=== PATIENT | female | born 1965 | race Caucasian/White ===

== ENCOUNTER 2017-06-11 21:10 | Emergency (ER) | payer MEDICARE, SELFPAY ==
[2017-06-11 21:13] VITALS: BP 134/71; PULSE 78; RESP 18; RESP 20; TEMP 37.4; O2SAT 88; O2SAT 95; BMI 43.7
--- NOTE | 2017-06-11 21:43 | EKG12_ITS ---
Test Reason : COUGH Blood Pressure : / mmHG Vent. Rate : 063 BPM Atrial Rate : 063 BPM P-R Int : 146 ms QRS Dur : 094 ms QT Int : 424 ms P-R-T Axes : -10 016 015 degrees QTc Int : 433 ms Normal sinus rhythm Anterior infarct , age undetermined Abnormal ECG Reconfirmed by MARYAM TAFOYA, JAZZMINE ([id number]), news assignment editor SUKUMAR GODINEZ ([id number]) on 06/15/2017 1:48:57 PM Referred By: DR SANTOS Confirmed By:JAZZMINE FRANCISCO MD
--- NOTE | 2017-06-11 21:43 | RAD_ITS ---
STUDY: X-RAY CHEST REASON FOR EXAM: Female, 51 years old. Chronic cough TECHNIQUE: Single AP portable view of the chest. COMPARISON: 01/14/2017. FINDINGS: The lungs are clear and expanded. There is no demonstrated pleural abnormality. Normal size heart. Normal mediastinum and alden. Normal visualized pulmonary arteries. Normal visualized aortic arch and descending thoracic aorta. Normal visualized thoracic spine. Normal visualized ribs, clavicles, and shoulders. There is no demonstrated abnormality of the visualized soft tissue structures of the upper abdomen. RAD/Chest 1 View (Portable) IMPRESSION: No acute cardiopulmonary disease. Electronically Signed: Prashant Rivas DO at 22:28 EDT , Service support ,
[2017-06-11] MEDS: MethylPREDNISolone 125 MG/2 ML Vial IV (21:59)
[2017-06-11] MEDS: Ipratropium/Albuterol Sulfate 3 ML AMPUL.NEB INHALATION (22:05)
[2017-06-11] MEDS: Albuterol 2.5 MG/3 ML VIAL.NEB. INHALATION (22:05)
[2017-06-11 22:07] VITALS: PULSE 67; RESP 18
[2017-06-11 22:09] VITALS: O2SAT 94
[2017-06-11 22:13] LABS: Absolute Lymphocyte Count 2.11 X10^3/ul (0.83-4.51); Absolute Neutrophil Count 6.7 X10^3/uL (2.0-7.7); Basophil# 0.08 X10^3/uL; Basophil% 0.8 % (0-1); Eosinophil# 0.53 X10^3/uL; Eosinophils% 5.1 % (0-5); Hematocrit 40.1 % (37-47); Lymphocyte # 2.11 X10^3/ul (4.0); Lymphocyte % 20.2 % (19-41); Mean Corp Hgb Conc 32.4 g/gl (32-36); Mean Corpuscular Hgb 28.4 pg (27.0-32.0); Mean Corpuscular Volume 87.6 fL (81-99); Mean Platelet Vol. 9.3 fl (6.2-12.0); Monocyte# 1.04 X10^3/uL; Neutrophil # 6.65 X10^3/uL (2.7-7.7); Neutrophil % 63.7 % (47-70); Platelet Count 215 K/mm3 (150-450); RBC Distribution Width CV 15.8 % (11.6-14.6); RBC Distribution Width SD 50.5 fl (35.1-43.9); Red Blood Count 4.58 M/mm3 (4.2-5.4); White Blood Count 10.4 K/mm3 (4.4-11.0)
[2017-06-11 22:16] LABS: POSITIVE COUNT NO; POSITIVE DIFFERENTIAL NO; POSITIVE MORPHOLOGY NO
[2017-06-11 22:36] LABS: Anion Gap 7 (5-15); BUN 6 mg/dL (7-18); BUN/Creat Ratio 7.9 RATIO (10-20); Calcium,Total 9.3 mg/dL (8.5-10.1); Chloride 106 mmol/L (98-107); Creatinine, Serum 0.76 mg/dL (0.55-1.02); EST Glomerular Filtration Rate 86 mL/min (>60); Est Glom Filt Rate - Afr Amer 104 mL/min (>60); Estimated Creatinine Clearance 72.44 ml/min; Glucose 81 mg/dL (74-106); Potassium 3.3 mmol/L (3.5-5.1); Sodium Level 140 mmol/L (136-145)
--- NOTE | 2017-06-11 22:47 | ED.DCSUM_ITS ---
- ER Visit Summary Date of Service: 06/11/17 Chief Complaint: [] Cough, shortness of breath History of Present Illness: The patient is a 51 F [] complaining of nonproductive cough and mild shortness of breath. Patient reports her chest did not feel right and she checked her pulse ox at home and she reported that it was between 80 and 87 on room air. She reports she only wears home O2 at bedtime/sleep. She reports she is normally around 97%. She is conversational in the room on 2 L nasal cannula. Denies chest pain or shortness of breath upon my entry into the room and during history and physical exam. Physical Examination: [] Pulse ox 94% on room air, BP 131/74, heart rate 67, respiratory rate 18, temperature 99.3. Obese 51-year-old female in no acute distress. Cardiovascular exam is regular rate and rhythm. Lungs are clear with diminished breath sounds at the bases. Abdomen is soft and nontender. No lower extremity edema. Test Results: [] CBC, BMP, troponin within normal limits. Chest x-ray is negative per radiologist interpretation. EKG shows normal sinus rhythm, rate of 53 without ectopy. This is unchanged from previous EKG. Emergency Department Course and Treatment: [] Patient provided intravenous Solu-Medrol and albuterol and DuoNeb aerosols. On serial exam she had improvement of symptoms and was amenable to discharge. She was given a short-term prescription for prednisone for the next 5 days with instructions to follow-up with her primary care physician. Treatment Plan: [] Discharge on prednisone with PCP follow-up. Disposition: [] Discharge, stable. Impression: [] COPD exacerbation This note was generated with [employer] dictation software. It may contain incorrect words, spelling, and punctuation that were not noted in review of the chart prior to signing ED Disposition - Plan for ED Patient: Disposition: Home or Assisted Living Chief Complaint: Cough Diagnosis: COPD (chronic obstructive pulmonary disease) with emphysema Instructions: ED Bronchitis Asthmatic Referrals: Gael Gonzalez [Primary Care Provider] -
--- NOTE | 2017-06-11 22:48 | ED.DEP ---
ED Disposition - Plan for ED Patient: Disposition: Home or Assisted Living Chief Complaint: Cough Diagnosis: COPD (chronic obstructive pulmonary disease) with emphysema Instructions: ED Bronchitis Asthmatic Prescriptions: Prednisone [Deltasone] 40 mg PO DAILY #5 tab Referrals: Gael Gonzalez [Primary Care Provider] -
[2017-06-11 23:06] VITALS: BP 139/85; PULSE 71; RESP 20; O2SAT 94
== END 2017-06-11 23:07 | disposition home or self-care (01) ==
PROVIDERS: Emergency Provider Emergency Medicine; Family Provider Family Medicine; PCP Family Medicine
DX: J44.1 Chronic obstructive pulmonary disease with (acute) exacerbation (principal); I25.10 Atherosclerotic heart disease of native coronary artery without angina pectoris; E66.9 Obesity, unspecified; Z72.0 Tobacco use; Z79.02 Long term (current) use of antithrombotics/antiplatelets; Z79.899 Other long term (current) drug therapy
CPT/HCPCS: 71045; 80048; 84484; 85025; 93005; 94640; 96374; 99284; A4216

== ENCOUNTER 2017-06-27 16:02 | Emergency (ER) | payer MEDICARE, SELFPAY ==
[2017-06-27 16:03] VITALS: BP 134/76; PULSE 73; RESP 18; TEMP 37.1; O2SAT 98; BMI 41.3
[2017-06-27] MEDS: Triamcinolone Acetonide 40 MG/ML Vial 80 MG IM (16:47)
[2017-06-27] MEDS: Ondansetron ODT 4 MG Tablet PO (16:47)
[2017-06-27] MEDS: oxyCODONE 5 MG Tablet 10 MG PO (16:51)
--- NOTE | 2017-06-27 16:58 | RAD_ITS ---
STUDY: X-RAY CHEST REASON FOR EXAM: Female, 51 years old. Cough, chest pain TECHNIQUE: Frontal and lateral views of the chest were obtained. COMPARISON: June 11, 2017 FINDINGS: The lungs are hyperinflated. There are no focal airspace opacities. There is no demonstrated pleural abnormality. The cardiac silhouette is normal in size. The mediastinum and hilar regions are unremarkable. Normal visualized pulmonary arteries. There is atherosclerotic calcification of the thoracic aorta. There are diffuse degenerative changes of the visualized spine. There are degenerative changes in both shoulders. There is no demonstrated abnormality of the visualized upper abdomen. RAD/Chest PA and Lateral IMPRESSION: There is no evidence of focal consolidation or pleural effusion. Hyperinflation suggests COPD. Electronically Signed: Breann Horton MD at 17:42 EDT Tel Direct: [phone], Service support ,
--- NOTE | 2017-06-27 17:14 | ED.VISSUMM ---
- ER Visit Summary Date of Service: 06/27/17 Chief Complaint: Chronic pain and cough History of Present Illness: The patient is a [address] has seen Dr[address] Rodriguez in the past. She reports that she has chronic back, left shoulder, and right hip pain. She was seeing Dr. Mary Ann Riley for this, but reports that she did not have transportation to get there for a pill count and is been fired from their practice. She is an appointment to see Dr. Rodriguez again on July 10 or July 13. She denies any recent trauma. No fall, MVA, or change in activity. She reports that her left shoulder pain is 8 out of 10 severity. Her right hip pain is 8 out of 10 severity. And her back pain is 7 out of 10 in severity. She denies any numbness or weakness that is new. No problems with her bowels or her bladder. No groin numbness. No fever or chills. Review of systems the patient complains of a cough that is chronic, but is worsened over the past 2 days. She reports that she has mild shortness of breath. Her cough is productive brown sputum without blood. Physical Examination: Vitals: Stable. Afebrile. General: A&O x 3. NAD. Cardiovascular exam: Regular rate and rhythm, no murmur, rub or gallop. Respiratory exam: Clear to auscultation bilaterally. No wheezes or stridor. Abdominal exam: Soft, nontender, nondistended, normal bowel sounds. No peritoneal signs. Back: Diffuse moderate tenderness to palpation over the lumbar spine and the paraspinous musculature in the lumbar region. No point tenderness. Negative straight leg bilaterally. 5/5 DF, PF, EHL bilaterally. Normal sensation to light touch throughout. Extremity: No clubbing, cyanosis, or edema. Test Results: Chest x-ray shows no acute disease. Emergency Department Course and Treatment: An [facility] report was obtained which shows patient's last prescriptions for opiates was April 05 and was supposed to have lasted 1 month. Patient was discussed with Dr. Rodriguez who states that he will see her in 6 days and asked that she be given a prescription for oxycodone until that time. Patient was given Kenalog IM and Zofran p.o. Treatment Plan: Patient will be discharged prescription for Percocet, Zofran, and doxycycline. Instructed to follow-up with Dr. Rodriguez in 6 days for another exam. Instructed to follow-up with her primary care physician in 1 week if her cough is not improving. Return to the emergency department for any worsening symptoms. Disposition: To home in improved and stable condition. Impression: 1. Chronic back/left shoulder/right hip pain. 2. COPD exacerbation. This note was generated with [employer] dictation software. It may contain incorrect words, spelling, and punctuation that were not noted in review of the chart prior to signing ED Disposition - Plan for ED Patient: Disposition: Home or Assisted Living Chief Complaint: Back Instructions: ED Chronic Pain Management, ED COPD Flare Prescriptions: Oxycodone HCl/Acetaminophen [Percocet 5/325] 1 tablet PO Q6H PRN PRN #28 tablet PRN Reason: Pain Ondansetron [Zofran Odt] 4 mg PO Q8H PRN PRN #10 tablet PRN Reason: Nausea Doxycycline Monohydrate 100 mg PO BID #20 capsule Referrals: Robyn Rodriguez MD [STAFF PHYSICIAN] - 07/03/17 Janel Taylor MD [Primary Care Provider] - 1 Week if not improving
[2017-06-27 18:33] VITALS: BP 155/88; PULSE 87; RESP 20; TEMP 36.2; O2SAT 96
== END 2017-06-27 18:34 | disposition home or self-care (01) ==
LOC: ED 16:51
PROVIDERS: Emergency Provider Emergency Medicine; Family Provider Family Medicine; PCP Family Medicine
DX: M54.9 Dorsalgia, unspecified (principal); M25.512 Pain in left shoulder; M25.551 Pain in right hip; G89.29 Other chronic pain; J44.1 Chronic obstructive pulmonary disease with (acute) exacerbation; R51 Headache; R11.0 Nausea; I25.10 Atherosclerotic heart disease of native coronary artery without angina pectoris; I10 Essential (primary) hypertension; Z72.0 Tobacco use; Z79.02 Long term (current) use of antithrombotics/antiplatelets; Z79.899 Other long term (current) drug therapy; Z98.84 Bariatric surgery status
CPT/HCPCS: 71046; 96372; 99283

== ENCOUNTER 2017-07-01 15:00 | Emergency (ER) | payer MEDICARE, SELFPAY ==
[2017-07-01 15:02] VITALS: BP 167/103; PULSE 113; RESP 20; TEMP 36.6; O2SAT 95; BMI 41.4
--- NOTE | 2017-07-01 15:23 | ED.DEP ---
ED Disposition - Plan for ED Patient: Chief Complaint: Back Instructions: ED Sprain Strain Lumbar Referrals: Janel Taylor MD [Primary Care Provider] - Robyn Rodriguez MD [STAFF PHYSICIAN] -
--- NOTE | 2017-07-01 15:29 | ED.DCSUM_ITS ---
- ER Visit Summary Date of Service: 07/01/17 Chief Complaint: Back pain History of Present Illness: The patient is a 51 F presenting with back pain. Patient states she has a history of chronic back pain and has had similar pain for the past 2-5 years. She has an appointment with Dr. Rodriguez on Monday to restart pain management. She was previously seeing Dr. Riley for pain management. She had difficulty with transportation and was unable to get to their office for a pill count and was fired from their practice. She then set up an appointment with Dr. Rodriguez and has an appointment on Monday. She was seen in the ED 4 days ago and was given a prescription for Percocet. She states she still has Percocet at home but this is not helping her pain. Denies injury or other complaints. Physical Examination: Vitals are stable. Patient is afebrile. Alert no acute distress. HEENT exam is unremarkable. Neck is supple. Lungs are clear and equal bilaterally. Heart is regular rate and rhythm. Abdomen is soft nontender nondistended. Back: right paraspinal lumbar tenderness, no midline tenderness Extremities are unremarkable. Skin is warm and dry. No focal neurologic deficit. Remainder of exam is unremarkable. Emergency Department Course and Treatment: Patient is given Dilaudid, Zofran. She is advised to follow with Dr. Rodriguez as scheduled. Advised return to ED if worsening complaints. Disposition: Discharge home Impression: Acute on chronic back pain This note was generated with [employer] dictation software. It may contain incorrect words, spelling, and punctuation that were not noted in review of the chart prior to signing ED Disposition - Plan for ED Patient: Chief Complaint: Back Instructions: ED Sprain Strain Lumbar Referrals: Robyn Rodriguez MD [STAFF PHYSICIAN] - Janel Taylor MD [Primary Care Provider] -
[2017-07-01] MEDS: Ondansetron ODT 4 MG Tablet PO (15:32)
[2017-07-01] MEDS: HYDROmorphone 1 MG/ML Syringe 2 MG IM (15:32)
[2017-07-01 15:59] VITALS: BP 156/90; PULSE 87; RESP 18
== END 2017-07-01 16:00 | disposition home or self-care (01) ==
LOC: ED 15:27
PROVIDERS: Emergency Provider Emergency Medicine; Family Provider Family Medicine; PCP Family Medicine
DX: M54.9 Dorsalgia, unspecified (principal); G89.29 Other chronic pain; J44.9 Chronic obstructive pulmonary disease, unspecified; Z72.0 Tobacco use; Z79.02 Long term (current) use of antithrombotics/antiplatelets; Z79.899 Other long term (current) drug therapy
CPT/HCPCS: 96372; 99281

== ENCOUNTER 2017-07-02 11:48 | Emergency (ER) | payer MEDICARE, SELFPAY ==
[2017-07-02 11:49] VITALS: BP 162/102; PULSE 100; RESP 16; TEMP 36.6; O2SAT 98; BMI 41.4
--- NOTE | 2017-07-02 12:42 | ED.DCSUM_ITS ---
- ER Visit Summary Date of Service: 07/02/17 Chief Complaint: [] Acute recurrent chronic right hip and back pain History of Present Illness: The patient is a 51 F [] long history of right hip and back pain she indicates she has degenerative joint disease in the right hip she had right hip replacement years ago by [facility] she has had persistence of the right hip pain and back pain, she was also told she has lumbar disc disease, she was under the pain of her pain management physician her primary care physician apparently she could not follow the instructions related to pain management that involved her pill counts of the pain management service discontinued her care referred her back to her primary care doctor or other pain management physicians, she indicates she has not seen her primary care doctors for many months and she is scheduled to see a new pain management doctor tomorrow The case the pain she is having is the same it is not new or different she denies any other complaints of head neck chest or abdominal pain she is a walker to walk. She has been to the emergency departments a few times this week earlier in the week she indicates she received Percocet and then yesterday she indicates she was in the emergency department and received an injection of Dilaudid Returns today asking to be re-medicated with IM Dilaudid Again she indicates his pain is not different or new she has the Percocet prescription she was given earlier in the week, she still has some of those pills left Physical Examination: [] She is in no distress head neck chest unremarkable the abdomen is obese but soft nontender she has a vague pain to the right paracervical musculature she is able to stand she can toe raise and heel raise and bend her knees she is able to walk using her rolling walker she assures me this is baseline for her and there are no new abnormalities or changes Test Results: [] Emergency Department Course and Treatment: [] I had a long conversation with the patient I explained her that her pain management cannot be assumed from the emergency department due to state and federal regulations, she has been to the emergency department now 3 times this week either getting narcotics or requesting narcotics, she currently has Percocet left over from earlier this week prescription. I discuss nonnarcotic management with her she indicates me she was not allergic to nonsteroidals but I when I went to write her for IM Toradol, the computer alert indicated she was allergic to ibuprofen I confirm that with her and she states she cannot take nonsteroidals related to stomach ulcers Explained her that given that history that there is really no other therapy that was available for me to provide her, this was a long-standing condition that she had and she needs to obtain management from her primary care doctor or pain management management physician. She indicated that every time she comes to the emergency department she is treated with narcotics or given narcotic prescriptions to go home with, I explained her that I was not present during those visits and I cannot comment on why that did or did not occur, but in any case again She has pain management physicians, she has family physicians, she has primary care physicians, orthopedic physicians, none of these physicians are prescribing her narcotics, and if she needs pain management or narcotics or other therapies she needs to obtain that from those physicians and not the emergency department SHe was quite unhappy with my explanation to her, I further explained to her I would be happy to treat her with nonnarcotics there were none available given her allergy profile at this time she will be discharged home to follow-up with her pain management physicians family physicians primary care physicians and orthopedic physicians and all of the other physicians were managing her condition Treatment Plan: [] Disposition: [] Home stable Impression: [] Acute recurrent right back and hip pain for years, requesting an injection of Dilaudid This note was generated with [employer] dictation software. It may contain incorrect words, spelling, and punctuation that were not noted in review of the chart prior to signing ED Disposition - Plan for ED Patient: Chief Complaint: Back Referrals: Janel Taylor MD [Primary Care Provider] -
--- NOTE | 2017-07-02 12:42 | ED.DEP ---
ED Disposition - Plan for ED Patient: Chief Complaint: Back Instructions: ED Spasm Back No Trauma, Common Myths About Pain Medications Referrals: Janel Taylor MD [Primary Care Provider] -
== END 2017-07-02 13:25 | disposition home or self-care (01) ==
LOC: ED 13:21
PROVIDERS: Emergency Provider Emergency Medicine; Family Provider Family Medicine; PCP Family Medicine
DX: M25.551 Pain in right hip (principal); G89.29 Other chronic pain; M16.11 Unilateral primary osteoarthritis, right hip; M46.46 Discitis, unspecified, lumbar region; I25.10 Atherosclerotic heart disease of native coronary artery without angina pectoris; Z79.02 Long term (current) use of antithrombotics/antiplatelets; Z79.899 Other long term (current) drug therapy; Z88.6 Allergy status to analgesic agent; Z96.641 Presence of right artificial hip joint
CPT/HCPCS: 99282; J7040

== ENCOUNTER 2017-07-02 16:56 | Emergency (ER) | payer MEDICARE, SELFPAY ==
[2017-07-02 16:56] VITALS: BP 130/89; PULSE 92; RESP 16; TEMP 36.9; O2SAT 97; BMI 41.4
[2017-07-02] MEDS: oxyCODONE 5 MG Tablet PO (17:29)
[2017-07-02] MEDS: proMETHazine 25 MG/ML Syringe 6.25 MG IV (17:29)
[2017-07-02] MEDS: Ketorolac 30 MG/ML Syringe IV (17:29)
--- NOTE | 2017-07-02 18:32 | ED.VISSUMM ---
- ER Visit Summary Date of Service: 07/02/17 Chief Complaint: Exacerbation of low back pain with radiation down the lateral right lower extremity to the ankle and wraps around the ankle. History of Present Illness: The patient is a 51 F has history of herniated disc, spinal stenosis, degenerative disc disease who presents with low back pain. She was not forthcoming with information that she was here yesterday. Furthermore she is upset that she was only prescribed Percocet 5/325. She was told she was given Percocet 5 and not 10 because her pain management physician requested only 5. She states she has an appointment to see Dr. Russ tomorrow. She apparently was in Dr. Riley's practice but has been removed because of noncompliance with pill counts. Patient denies bowel bladder dysfunction. Patient denies saddle paresthesia or anesthesia. She states she has a foot drop. She denies quadricep weakness going up or down steps. She denies fever, chills night sweats. Physical Examination: Vital signs remarkable slight elevation blood pressure 130/89 BMI is 42. Any type of movement causes pain. Gait was observed and she does not have a foot drop. Straight leg test is negative bilaterally. DTRs are 1+ at the ankle patella. EHL is intact. There is no clonus or Babinski sign. Normal sensation and normal perianal sensation. Patient has pain out of proportion to tactile stimuli. Bowel sounds are present normal. Test Results: None Emergency Department Course and Treatment: Patient was treated with oxycodone 5 mg p.o. and 30 mg of Toradol IV push. She denies history of renal disease or diabetes even though past sister Lists type 2 diabetes. Treatment Plan: As told she would not receive any other medicine. She states the medicine she was given yesterday helped. After reviewing records it was determined she gave Dilaudid. As aforementioned she was not forthcoming with information that she was here yesterday nor is she forthcoming with history that she was removed from Dr. Riley's practice and reason she is now seeing Dr. Rodriguez Disposition: Discharged to follow-up with pain management Impression: 1. Exacerbation of low back pain right side 2. History of degenerative disc disease 3. History of spinal stenosis 4. History of herniated disc This note was generated with [employer] software. It may contain incorrect words, spelling, and punctuation that were not noted in review of the chart prior to signing ED Disposition - Plan for ED Patient: Disposition: Home or Assisted Living Chief Complaint: Back Instructions: ED Neck Back Pain General Referrals: Janel Taylor MD [Primary Care Provider] - As Needed Robyn Rodriguez MD [STAFF PHYSICIAN] - Keep Maurice appointment
--- NOTE | 2017-07-02 18:37 | ED.DCSUM_ITS ---
- ER Visit Summary Date of Service: 07/02/17 Chief Complaint: Exacerbation of low back pain with radiation down the lateral right lower extremity to the ankle and wraps around the ankle. History of Present Illness: The patient is a 51 F has history of herniated disc , spinal stenosis, degenerative disc disease who presents with low back pain. She was not forthcoming with information that she was here yesterday. Furthermore she is upset that she was only prescribed Percocet 5/325. She was told she was given Percocet 5 and not 10 because her pain management physician requested only 5. She states she has an appointment to see Dr. Russ tomorrow. She apparently was in Dr. Riley's practice but has been removed because of noncompliance with pill counts. Patient denies bowel bladder dysfunction. Patient denies saddle paresthesia or anesthesia. She states she has a foot drop. She denies quadricep weakness going up or down steps. She denies fever, chills night sweats. Physical Examination: Vital signs remarkable slight elevation blood pressure 130 /89 BMI is 42. Any type of movement causes pain. Gait was observed and she does not have a foot drop. Straight leg test is negative bilaterally. DTRs are 1+ at the ankle patella. EHL is intact. There is no clonus or Babinski sign. Normal sensation and normal perianal sensation. Patient has pain out of proportion to tactile stimuli. Bowel sounds are present normal. Test Results: None Emergency Department Course and Treatment: Patient was treated with oxycodone 5 mg p.o. and 30 mg of Toradol IV push. She denies history of renal disease or diabetes even though past sister Lists type 2 diabetes. Treatment Plan: As told she would not receive any other medicine. She states the medicine she was given yesterday helped. After reviewing records it was determined she gave Dilaudid. As aforementioned she was not forthcoming with information that she was here yesterday nor is she forthcoming with history that she was removed from Dr. Riley's practice and reason she is now seeing Dr. Rodriguez Disposition: Discharged to follow-up with pain management Impression: 1. Exacerbation of low back pain right side 2. History of degenerative disc disease 3. History of spinal stenosis 4. History of herniated disc This note was generated with [employer] software. It may contain incorrect words, spelling, and punctuation that were not noted in review of the chart prior to signing ED Disposition - Plan for ED Patient: Disposition: Home or Assisted Living Chief Complaint: Back Instructions: ED Neck Back Pain General Referrals: Janel Taylor MD [Primary Care Provider] - As Needed Robyn Rodriguez MD [STAFF PHYSICIAN] - Keep Maurice appointment
[2017-07-02 18:57] VITALS: BP 128/82; PULSE 80; RESP 16; O2SAT 98
== END 2017-07-02 18:59 | disposition home or self-care (01) ==
PROVIDERS: Emergency Provider Emergency Medicine; Family Provider Family Medicine; PCP Family Medicine
DX: M16.11 Unilateral primary osteoarthritis, right hip (principal); M51.27 Other intervertebral disc displacement, lumbosacral region; G89.29 Other chronic pain; I25.10 Atherosclerotic heart disease of native coronary artery without angina pectoris; I10 Essential (primary) hypertension; K21.9 Gastro-esophageal reflux disease without esophagitis; J44.9 Chronic obstructive pulmonary disease, unspecified; G47.33 Obstructive sleep apnea (adult) (pediatric); E66.9 Obesity, unspecified; Z68.41 Body mass index [BMI] 40.0-44.9, adult; Z72.0 Tobacco use; Z88.6 Allergy status to analgesic agent; Z91.19 Patient's noncompliance with other medical treatment and regimen; Z79.02 Long term (current) use of antithrombotics/antiplatelets; Z79.899 Other long term (current) drug therapy; Z96.641 Presence of right artificial hip joint
CPT/HCPCS: 99282; 99283; J7040; J7050; A4216

== ENCOUNTER → 2017-07-03 16:32 | Outpatient (CLI) | payer MEDICARE, SELFPAY | PROVIDERS: Family Provider Family Medicine; PCP Family Medicine; Visit Provider Anesthesiology Pain Medicine | DX: F11.20 Opioid dependence, uncomplicated (principal) | CPT/HCPCS: 80307 ==

== ENCOUNTER → 2017-08-01 13:18 | Outpatient (CLI) | payer MEDICARE, SELFPAY ==
[2017-08-05 03:07] LABS: Alternaria alternata <0.10 kU/L (Class 0); Bermuda Grass <0.10 kU/L (Class 0); Bluegrass, Kentucky <0.10 kU/L (Class 0); Cat Hair/Dander, Standard <0.10 kU/L (Class 0); D farinae Mite <0.10 kU/L (Class 0); D pteronyssinus <0.10 kU/L (Class 0); Dog Epithelia <0.10 kU/L (Class 0); Elm, American White <0.10 kU/L (Class 0); Oak, White <0.10 kU/L (Class 0); Plantain, English <0.10 kU/L (Class 0); Ragweed, Short/Common <0.10 kU/L (Class 0)
[2017-08-05 12:07] LABS: Aspirgillus flavus Negative (Neg:<1:1); Aspirgillus fumigatus Negative (Neg:<1:1); Aspirgillus niger Negative (Neg:<1:1)
[2017-08-05 14:13] LABS: Mouse Urine <0.10 kU/L (Class 0)
[2017-08-06 09:10] LABS: Immunoglobulin E 30 IU/mL (0-100)
== END ==
PROVIDERS: Family Provider Internal Medicine; PCP Internal Medicine; Visit Provider Nurse Practitioner Acute Care
DX: R09.82 Postnasal drip (principal)
CPT/HCPCS: 36415; 82785; 86003; 86606

== ENCOUNTER → 2017-09-12 10:59 | Outpatient (CLI) | payer MEDICARE, SELFPAY ==
[2017-09-12 14:08] VITALS: PULSE 63; PULSE 71; PULSE 77; PULSE 80; PULSE 81; PULSE 82; PULSE 83; O2SAT 88; O2SAT 90; O2SAT 91; O2SAT 92; O2SAT 94
--- NOTE | 2017-09-12 14:20 | CPS ---
Pt spO2 dropped to 88%. Pt face to face with Dr. Arthur. [facility] called and pt sent home on 2LNC portable O2 tank.
--- NOTE | 2017-09-12 15:31 | WT_ITS ---
PSN 6 Minute Walk Test - 6 Minute Walk Test 6 Minute Walk Test: 6 Minute Walk Test PSN:6-Minute Walk Test Start: 09/12/17 14: 07 Freq: Status: Active Protocol: RESP.6MINW Document 09/12/17 14:08 SHANNA (Rec: 09/12/17 14:22 [facility] [id number]) 6 Minute Walk Test Date Performed 09/12/17 Time Performed 11:07 Height 5 ft 3 in Weight: 105.233 kg Weight in Pounds 232.[address]: Rosanna Hampton Assistive device used: Walker Pre-test Oxygen Delivery Method Room Air Pulse Ox (%) 91 Pulse Rate (60-100 beats/min) 71 Dyspnea Nishi Scale (0-10) 3 Exertion Nishi Scale (6-20) 12 Number of Rests Taken 1 1st minute Oxygen Delivery Method Room Air Pulse Ox (%) 90 Pulse Rate (60-100 beats/min) 82 Number of Rests Taken 1 Reported Symptoms Increased Work of Breathing 2nd minute Oxygen Delivery Method Room Air Pulse Ox (%) 92 Pulse Rate (60-100 beats/min) 81 Number of Rests Taken 1 Reported Symptoms Increased Work of Breathing 3rd minute Oxygen Delivery Method Room Air Pulse Ox (%) 90 Pulse Rate (60-100 beats/min) 77 Number of Rests Taken 1 Reported Symptoms Increased Work of Breathing 4th minute Oxygen Delivery Method Room Air Pulse Ox (%) 90 Pulse Rate (60-100 beats/min) 80 Reported Symptoms Increased Work of Breathing 5th minute Oxygen Delivery Method Room Air Pulse Ox (%) 88 Pulse Rate (60-100 beats/min) 80 Number of Rests Taken 1 Reported Symptoms Increased Work of Breathing 6th minute Oxygen Flow Rate (L/min) (L/min) 2 Oxygen Delivery Method Nasal Cannula Pulse Ox (%) 92 Pulse Rate (60-100 beats/min) 83 Number of Rests Taken 1 Reported Symptoms Increased Work of Breathing Post-test Oxygen Flow Rate (L/min) (L/min) 2 Oxygen Delivery Method Nasal Cannula Pulse Ox (%) 94 Pulse Rate (60-100 beats/min) 63 Dyspnea Nishi Scale (0-10) 5 Exertion Nishi Scale (6-20) 15 Reported Symptoms Increased Work of Breathing Full Laps Walked 4 Partial Lap, Number of Tiles Walked 0 Total Distance Walked (ft) 236 09/12/17 14:20 Cardiopulmonary Services by Bianca Bobo Pt spO2 dropped to 88%. Pt face to face with Dr. Willoughby. [place] called and pt sent home on 2LNC portable O2 tank. Initialized on 09/12/17 14:20 - END OF NOTE - Interpretation Interpretation: The patient was able to ambulate only 236 feet over the course of 6 minutes with the assistance of a walker. Patient was noted to be 91% on room air, but desaturated to 88% in the fifth minute. No significant tachycardia was noted. These findings are consistent with a respiratory limitation exercise tolerance. - Recommendations Recommendations: The patient requires no supplemental oxygen at rest, but should be using 2 L/ min with any exertion.
== END ==
LOC: PSN 11:00
PROVIDERS: Family Provider Internal Medicine; PCP Internal Medicine; Visit Provider Nurse Practitioner Acute Care
DX: J43.9 Emphysema, unspecified (principal)
CPT/HCPCS: 94618

== ENCOUNTER → 2017-09-21 09:57 | Outpatient (CLI) | payer MEDICARE, SELFPAY ==
--- NOTE | 2017-09-22 07:42 | PFT ---
INTRODUCTION: The patient is a 52-year-old female that presents for pulmonary function testing secondary to a diagnosis of emphysema. INTERPRETATION: Forced expiration spirometry demonstrates no evidence of a large airways obstructive ventilatory defect, with a postbronchodilator FEV1/FVC ratio of 70%. Technically, the patient does not meet requirements for obstruction based on ATS criteria either. Spirograms are of good quality and plateau gradually. Body plethysmography was performed and reveals an elevated RV to 159% of predicted. Diffusing capacity by single breath CO was severely reduced at 39% of predicted. IMPRESSION: Technically, the patient does not demonstrate evidence of large airways obstruction, based upon ATS and GOLD criteria (FEV1/FVC of 70%). The patient's RV is increased. Diffusing capacity is significantly reduced, but appears stable when compared to pulmonary function testing from January 2017.
--- NOTE | 2017-09-22 07:47 | PFT_ITS ---
INTRODUCTION: The patient is a 52-year-old female that presents for pulmonary function testing secondary to a diagnosis of emphysema. INTERPRETATION: Forced expiration spirometry demonstrates no evidence of a large airways obstructive ventilatory defect, with a postbronchodilator FEV1/FVC ratio of 70% . Technically, the patient does not meet requirements for obstruction based on ATS criteria either. Spirograms are of good quality and plateau gradually. Body plethysmography was performed and reveals an elevated RV to 159% of predicted. Diffusing capacity by single breath CO was severely reduced at 39% of predicted. IMPRESSION: Technically, the patient does not demonstrate evidence of large airways obstruction, based upon ATS and GOLD criteria (FEV1/FVC of 70%). The patient's RV is increased. Diffusing capacity is significantly reduced, but appears stable when compared to pulmonary function testing from January 2017.
== END ==
PROVIDERS: Family Provider Family Medicine; PCP Family Medicine; Visit Provider Nurse Practitioner Acute Care
DX: J43.9 Emphysema, unspecified (principal)
CPT/HCPCS: 94060; 94726; 94729

== ENCOUNTER → 2017-09-26 14:07 | Outpatient (CLI) | payer MEDICARE, SELFPAY ==
--- NOTE | 2017-09-26 14:11 | RAD_ITS ---
STUDY: X-RAY - PELVIS AND LEFT HIP REASON FOR EXAM: Female, 52 years old. Chronic left hip pain TECHNIQUE: Radiological exam, hip, unilateral, with pelvis when performed; 2 or 3 views. COMPARISON: 12/28/2015 FINDINGS: Stable right hip arthroplasty with normal alignment. Mild left hip osteoarthritis. Degenerative lumbar changes. Pelvic phleboliths. No fractures or osteolytic lesions are seen. RAD/Hip 2-3 Views with Pelvis IMPRESSION: Stable right hip arthroplasty with normal alignment. Mild left hip osteoarthritis. Electronically Signed: Mata Forbes MD at 2:48 EDT Tel , Service support ,
== END ==
PROVIDERS: Visit Provider Nurse Practitioner Family
DX: M25.552 Pain in left hip (principal)
CPT/HCPCS: 73502

== ENCOUNTER 2017-10-27 11:47 | Emergency (ER) | payer MEDICARE, SELFPAY ==
[2017-10-27 11:47] VITALS: BP 156/85; PULSE 91; RESP 20; TEMP 36.6; O2SAT 98; BMI 41.1
--- NOTE | 2017-10-27 12:08 | ED.VISSUMM ---
- ER Visit Summary Date of Service: 10/27/17 Chief Complaint: Right hip and lower back pain. History of Present Illness: The patient is a 52 F significant past medical history for prior MIs, coronary disease with multiple cardiac stents. COPD, type II awa-srearae-isovgevir diabetes, chronic back pain and a replaced right hip. Patient states last weekend she moved with a lot of carrying and moving her things and since that time has had increased low back and right hip pain. She gets flares like this from time to time. She denies any falls or trauma. No bowel or bladder incontinence. No fever. She has had episodes like this multiple times before. Physical Examination: Well-appearing middle-age female. Vital signs are stable afebrile. She does not look septic toxic. She is in no acute distress. H EENT exam unremarkable nontender. Neck nontender. Lungs has coarse breath sounds with intermittent few scattered wheezes and rhonchi. Heart regular rhythm no murmur. Abdomen soft nontender. She is moving all 4 extremities. They are neurovascularly intact. There is no gross deformity. She has pain on palpation to her right hip. Has decreased range of motion right hip due to pain. There is no deformity. There is no shortening or rotation. She is able to ambulate. Back there is no specific tenderness at this time. Neurologically she is awake alert with no focal motor or sensory deficits in her lower extremities. No cauda equina or saddle anesthesia. Test Results: None Emergency Department Course and Treatment: P.o. Percocet here. Patient does have a history of significant degenerative disc disease. Also replaced right hip. I think she has legitimate pain. Also she is on Plavix and I do not think is a good candidate with her significant past medical history for NSAIDs. For that reason I will give her a limited prescription for Percocet. Treatment Plan: Percocet for pain. Follow-up with primary care physician. Physical therapy may be a good option also. Disposition: Discharged Impression: Acute on chronic right hip and back pain History of degenerative disc disease and right hip replacement History of CAD, cardiac stents, diabetes, COPD and anticoagulated on Plavix This note was generated with [employer] software. It may contain incorrect words, spelling, and punctuation that were not noted in review of the chart prior to signing ED Disposition - Plan for ED Patient: Chief Complaint: Back Referrals: Janel Taylor MD [Primary Care Provider] -
--- NOTE | 2017-10-27 12:12 | ED.DEP ---
ED Disposition - Plan for ED Patient: Disposition: Home or Assisted Living Chief Complaint: Back Instructions: ED Neck Back Pain General Prescriptions: Oxycodone HCl/Acetaminophen [Percocet 7.5-325 mg Tablet] 1 - 2 tab PO Q6H PRN PRN #20 tab PRN Reason: Pain Referrals: Janel Taylor MD [Primary Care Provider] - 1 Week if not improving Additional Instructions: Limited Percocet for pain. Ice to your hip. Call follow-up your primary care physician.
[2017-10-27] MEDS: oxyCODONE 5 MG Tablet 10 MG PO (12:15)
[2017-10-27 12:35] VITALS: PULSE 92; RESP 15; O2SAT 97
== END 2017-10-27 12:36 | disposition home or self-care (01) ==
PROVIDERS: Emergency Provider Emergency Medicine; PCP Family Medicine
DX: M25.551 Pain in right hip (principal); M54.9 Dorsalgia, unspecified; G89.29 Other chronic pain; I25.10 Atherosclerotic heart disease of native coronary artery without angina pectoris; J44.9 Chronic obstructive pulmonary disease, unspecified; E11.9 Type 2 diabetes mellitus without complications; I25.2 Old myocardial infarction; Z72.0 Tobacco use; Z79.02 Long term (current) use of antithrombotics/antiplatelets; Z79.899 Other long term (current) drug therapy; Z95.5 Presence of coronary angioplasty implant and graft; Z96.641 Presence of right artificial hip joint
CPT/HCPCS: 99282

== ENCOUNTER 2017-10-30 11:14 | Emergency (ER) | payer MEDICARE, SELFPAY ==
[2017-10-30 11:15] VITALS: BP 136/77; PULSE 86; RESP 18; TEMP 36.3; O2SAT 97; BMI 41.6
--- NOTE | 2017-10-30 11:42 | ED.VISSUMM ---
- ER Visit Summary Date of Service: 10/30/17 Chief Complaint: Severe right-sided back and leg pain History of Present Illness: The patient is a 52 F who was seen on October 27, 2017 for back pain and right buttocks leg pain after moving. No history of direct trauma. She denies bowel bladder dysfunction. Denies saddle paresthesia anesthesia. She denies foot drop. She does walk with a walker with wheels. She is unaware of any weakness in her thigh muscles. She is uncertain whether she would prefer to sit or stand for 30 minutes. She denies history of bleeding ulcer or renal disease. She states she has borderline diabetes. Last BUN and creatinine on June 11, 2017 was 6 and 0.76. She denies fever, chills night sweats. She denies nausea, vomiting, diarrhea or constipation. She denies dysuria, frequency, urgency or hematuria. She received a prescription for 20 Percocet on Monday. She reports she took 2 every 6 hours. She states she took all of them. He was informed that should last her 5 days at the most 3 to days at a minimum. Physical Examination: Vital signs are noted. BMI is 41.6. Abdomen is soft nontender. No palpable pulsatile mass or abdominal bruit. DP and PT pulses are palpable. Straight leg test is negative. DTRs patella and ankle 1+. EHL is intact. She has normal sensation. She has pain out of proportion to tactile stimuli. Movement causes her pain. Test Results: None are indicated Emergency Department Course and Treatment: Patient was informed that she completed her medication beforehand and I would not be able to give her any more opiate analgesia. Since she has normal renal function and this is musculoskeletal recommended ibuprofen or Aleve for her discomfort. Treatment Plan: Rest, ice anti-inflammatory Disposition: Discharged home. Of note she drove herself to the emergency department Impression: Exacerbation of right low back pain secondary to lumbar strain History of hypertension History hypercholesterolemia History of coronary disease History of type 2 diabetes This note was generated with [employer] dictation software. It may contain incorrect words, spelling, and punctuation that were not noted in review of the chart prior to signing ED Disposition - Plan for ED Patient: Disposition: Home or Assisted Living Chief Complaint: Lower Extremity Injury Instructions: ED Sprain Strain Lumbar Referrals: Janel Taylor MD [Primary Care Provider] - Keep Maurice appointment Additional Instructions: Take either 6 ibuprofen tablets every 6-8 hours or 2 Aleve tablets every 12 hours until you are seen by your primary care physician. Based on the number and frequency of medication prescribed by Dr. Feng on Monday you should still have pain medicine. Therefore, I will not Ly my able to write for any more medication since you took more pills then you were prescribed.
--- NOTE | 2017-10-30 12:42 | ED.RN ---
PT LEFT PRIOR TO RECEIVING DISCHARGE INSTRUCTIONS, PT UPSET THAT SHE DID NOT RECEIVE REQUESTED NARCOTIC MEDICATIONS. ORDERED MEDICATION WAS UNABLE TO BE ADMINISTERED BEFORE PT LEFT ED.
== END 2017-10-30 11:45 | disposition home or self-care (01) ==
LOC: ED 12:01
PROVIDERS: Emergency Provider Emergency Medicine; Family Provider Family Medicine; PCP Family Medicine
DX: S39.012A Strain of muscle, fascia and tendon of lower back, initial encounter (principal); M54.5 Low back pain; X58.XXXA Exposure to other specified factors, initial encounter; Y93.9 Activity, unspecified; Y92.9 Unspecified place or not applicable; I10 Essential (primary) hypertension; E78.00 Pure hypercholesterolemia, unspecified; I25.10 Atherosclerotic heart disease of native coronary artery without angina pectoris; E11.9 Type 2 diabetes mellitus without complications; E66.9 Obesity, unspecified; Z68.41 Body mass index [BMI] 40.0-44.9, adult; J44.9 Chronic obstructive pulmonary disease, unspecified; G47.33 Obstructive sleep apnea (adult) (pediatric); F32.9 Major depressive disorder, single episode, unspecified; Z87.11 Personal history of peptic ulcer disease; Z79.02 Long term (current) use of antithrombotics/antiplatelets; Z79.899 Other long term (current) drug therapy; Z72.0 Tobacco use
CPT/HCPCS: 99282

== ENCOUNTER 2017-10-31 09:48 | Emergency (ER) | payer MEDICARE, SELFPAY ==
[2017-10-31 09:50] VITALS: BP 121/93; PULSE 117; RESP 17; TEMP 36.7; O2SAT 98; BMI 58.8
--- NOTE | 2017-10-31 10:03 | ED.VISSUMM ---
- ER Visit Summary Date of Service: 10/31/17 Chief Complaint: Palpitations History of Present Illness: The patient is a 52 F who is under pain management for chronic pain. Also has a history of CAD with prior MIs and multiple cardiac stents. Currently on Plavix and takes Excedrin. Bah-fzotgmp-uwutoskru diabetes, hypertension and COPD. Patient states that yesterday she started a Medrol Dosepak from her pain management doctor for chronic inflammatory pain. She also noticed palpitations shortly after that and possibly melanotic stool. She has had some nausea and vomiting after drinking water but denies any hematemesis or coffee grounds. No abdominal pain. No fever. She denies any chest pain. Physical Examination: Well-appearing middle-age female. Vital signs are stable and afebrile. Pulse ox is 90% on room air no hypoxia. HEENT exam unremarkable. Neck nontender. Lungs coarse breath sounds but no rhonchi. Heart regular rhythm rate about 100. No murmur. Abdomen soft nontender. She is moving all 4 extremities. Calves are nontender without edema. Neurologically she is awake and alert moving all 4 extremities. Present in the room. Small amount of loose brown stool. No melena. No gross blood. No masses. Test Results: CBC shows a white count of 15.1. Hemoglobin is 14 to. Patient runs 9-13. Electrolytes show potassium of 3.0. Normal gap and creatinine. Troponin normal. EKG sinus rhythm rate of 99 with ischemia. Chest x-ray unremarkable. No acute abnormality read both by myself and the radiologist. Emergency Department Course and Treatment: With her palpitation should undergo a cardiac workup. She has had prior GI bleeds. Currently she takes Excedrin, Plavix and was just started on a Medrol Dosepak. She will also be typed and screened. At 11:20 AM. She is comfortable being discharged to home. Treatment Plan: Discharge and follow-up with primary care physician. Disposition: Discharge Impression: Acute palpitations Chronic pain This note was generated with [employer] dictation software. It may contain incorrect words, spelling, and punctuation that were not noted in review of the chart prior to signing ED Disposition - Plan for ED Patient: Chief Complaint: Chest Other Referrals: Janel Taylor MD [Primary Care Provider] -
[2017-10-31 10:16] VITALS: O2SAT 97
[2017-10-31 10:25] LABS: Absolute Lymphocyte Count 1.63 X10^3/ul (0.83-4.51); Absolute Neutrophil Count 12.2 X10^3/uL (2.0-7.7); Basophil# 0.06 X10^3/uL; Basophil% 0.4 % (0-1); Eosinophil# 0.05 X10^3/uL; Eosinophils% 0.3 % (0-5); Hematocrit 42.1 % (37-47); Hemoglobin 14.2 g/dl (12.0-15.0); Lymphocyte # 1.63 X10^3/ul (4.0); Lymphocyte % 10.8 % (19-41); Mean Corp Hgb Conc 33.7 g/gl (32-36); Mean Corpuscular Hgb 26.9 pg (27.0-32.0); Mean Corpuscular Volume 79.9 fL (81-99); Mean Platelet Vol. 9.2 fl (6.2-12.0); Monocyte# 1.14 X10^3/uL; Monocyte% 7.6 % (0-10); Neutrophil # 12.18 X10^3/uL (2.7-7.7); Neutrophil % 80.8 % (47-70); POSITIVE COUNT NO; POSITIVE DIFFERENTIAL NO; POSITIVE MORPHOLOGY NO; Platelet Count 322 K/mm3 (150-450); RBC Distribution Width CV 18.9 % (11.6-14.6); RBC Distribution Width SD 55.2 fl (35.1-43.9); Red Blood Count 5.27 M/mm3 (4.2-5.4); White Blood Count 15.1 K/mm3 (4.4-11.0)
[2017-10-31 10:37] LABS: Anion Gap 7 (5-15); BUN 4 mg/dL (7-18); BUN/Creat Ratio 4.8 RATIO (10-20); Calcium,Total 10.2 mg/dL (8.5-10.1); Chloride 113 mmol/L (98-107); Creatinine, Serum 0.84 mg/dL (0.55-1.02); EST Glomerular Filtration Rate 76 mL/min (>60); Est Glom Filt Rate - Afr Amer 92 mL/min (>60); Estimated Creatinine Clearance 64.81 ml/min; Glucose 147 mg/dL (74-106); Sodium Level 140 mmol/L (136-145)
[2017-10-31 11:22] VITALS: BP 126/81; PULSE 101; RESP 18; O2SAT 97
--- NOTE | 2017-10-31 11:25 | ED.DEP ---
ED Disposition - Plan for ED Patient: Disposition: Home or Assisted Living Chief Complaint: Chest Other Instructions: ED Palpitations Referrals: Janel Taylor MD [Primary Care Provider] - 1 Week if not improving
== END 2017-10-31 11:49 | disposition home or self-care (01) ==
PROVIDERS: Emergency Provider Emergency Medicine; Family Provider Family Medicine; PCP Family Medicine
DX: R00.2 Palpitations (principal); G89.29 Other chronic pain; R11.2 Nausea with vomiting, unspecified; I25.10 Atherosclerotic heart disease of native coronary artery without angina pectoris; J44.9 Chronic obstructive pulmonary disease, unspecified; E11.9 Type 2 diabetes mellitus without complications; I10 Essential (primary) hypertension; Z79.02 Long term (current) use of antithrombotics/antiplatelets; Z79.899 Other long term (current) drug therapy; I25.2 Old myocardial infarction; Z95.5 Presence of coronary angioplasty implant and graft
CPT/HCPCS: 71045; 80048; 84484; 85025; 86850; 86900; 93005; 99284; A4216

== ENCOUNTER 2017-11-02 07:55 | Emergency (ER) | payer MEDICARE, SELFPAY ==
[2017-11-02 07:56] VITALS: BP 76/50; PULSE 102; RESP 14; TEMP 36.8; O2SAT 98; BMI 42.6
[2017-11-02] MEDS: 0.9% Normal Saline 1,000 ML 1000 ML IV (08:10)
[2017-11-02] MEDS: proMETHazine 25 MG/ML Syringe 12.5 MG IV (08:39)
[2017-11-02 08:45] LABS: Anion Gap 8 (5-15); BUN 17 mg/dL (7-18); BUN/Creat Ratio 16.7 RATIO (10-20); Calcium,Total 8.7 mg/dL (8.5-10.1); Chloride 109 mmol/L (98-107); Creatinine, Serum 1.02 mg/dL (0.55-1.02); EST Glomerular Filtration Rate 60 mL/min (>60); Est Glom Filt Rate - Afr Amer 73 mL/min (>60); Estimated Creatinine Clearance 53.37 ml/min; Glucose 152 mg/dL (74-106); Potassium 3.8 mmol/L (3.5-5.1); Sodium Level 139 mmol/L (136-145)
[2017-11-02 08:47] LABS: Absolute Neutrophil Count 10.1 X10^3/uL (2.0-7.7); Basophil# 0.17 X10^3/uL; Basophil% 1.2 % (0-1); Eosinophil# 0.28 X10^3/uL; Hematocrit 32.4 % (37-47); Lymphocyte % 16.4 % (19-41); Mean Corpuscular Hgb 27.6 pg (27.0-32.0); Mean Corpuscular Volume 81.4 fL (81-99); Mean Platelet Vol. 9.7 fl (6.2-12.0); Monocyte# 1.14 X10^3/uL; Monocyte% 8.1 % (0-10); Neutrophil # 10.07 X10^3/uL (2.7-7.7); Neutrophil % 71.9 % (47-70); Platelet Count 354 K/mm3 (150-450); RBC Distribution Width CV 19.9 % (11.6-14.6); RBC Distribution Width SD 58.1 fl (35.1-43.9); Red Blood Count 3.98 M/mm3 (4.2-5.4)
[2017-11-02 08:48] LABS: POSITIVE COUNT NO; POSITIVE DIFFERENTIAL NO; POSITIVE MORPHOLOGY NO
[2017-11-02 08:56] LABS: Prothrombin Time (Protime)PT. 13.1 SECONDS (11.7-14.9)
[2017-11-02 09:02] VITALS: BP 79/56; PULSE 93; RESP 21; O2SAT 98
--- NOTE | 2017-11-02 09:05 | ED.VISSUMM ---
- ER Visit Summary Date of Service: 11/02/17 Chief Complaint: Vomiting blood History of Present Illness: The patient is a 52 F history of prior peptic ulcer disease and upper GI bleed. She has known history of coronary disease and multiple stents on Plavix. She also has a history of dff-xhtdlxo-kvuizdcez diabetes. Patient was having abdominal pain last night and this morning today started having nausea vomiting and said the first time she threw up bright red blood. She is also had black stool but states she is on iron. She does have a history of prior anemia. Physical Examination: Middle-aged female initial blood pressure 76/50 with a heart rate of 102. She does appear pale. H EENT exam unremarkable. She does have an emesis bag with a small amount of bright red blood in it. No clots. Neck nontender. Lungs clear to auscultation bilaterally. Heart tachycardic rate about 105 no murmur. Abdomen is soft mild epigastric tenderness nondistended normal bowel sounds no peritoneal signs. Moving all 4 extremities. Neurologically she is awake and alert with no focal motor deficits. Test Results: CBC shows a hemoglobin of 11 2 days ago she was 14. Consistent with an upper GI bleed. Her electrolytes are unremarkable or gap is 8 her creatinine is 1. Her PT/INR 13 and 1. Emergency Department Course and Treatment: Patient's been treated with IV Phenergan. IV Protonix. She will be transfused blood. She was given 1 L of normal pressure remains around 80 and I will begin transferring her blood. Treatment Plan: I spoke to general surgery here they felt the patient would be best served at a tertiary center. I spoke to [facility] they have no beds. I spoke to [facility] they are willing to accept the patient to the ICU and are awaiting GI acceptance also. Disposition: Transfer to home in ICU with GI coverage Impression: Acute upper GI bleed with history of prior peptic ulcer disease. Acute anemia Hemorrhagic shock Anticoagulated on Plavix Transfused This note was generated with [employer] dictation software. It may contain incorrect words, spelling, and punctuation that were not noted in review of the chart prior to signing ED Disposition - Plan for ED Patient: Chief Complaint: GI Bleed Referrals: Janel Taylor MD [Primary Care Provider] -
--- NOTE | 2017-11-02 09:09 | ED.DCSUM_ITS ---
- ER Visit Summary Date of Service: 11/02/17 Chief Complaint: Vomiting blood History of Present Illness: The patient is a 52 F history of prior peptic ulcer disease and upper GI bleed. She has known history of coronary disease and multiple stents on Plavix. She also has a history of seu-almyxnh-hfqzkpftg diabetes. Patient was having abdominal pain last night and this morning today started having nausea vomiting and said the first time she threw up bright red blood. She is also had black stool but states she is on iron. She does have a history of prior anemia. Physical Examination: Middle-aged female initial blood pressure 76/50 with a heart rate of 102. She does appear pale. H EENT exam unremarkable. She does have an emesis bag with a small amount of bright red blood in it. No clots. Neck nontender. Lungs clear to auscultation bilaterally. Heart tachycardic rate about 105 no murmur. Abdomen is soft mild epigastric tenderness nondistended normal bowel sounds no peritoneal signs. Moving all 4 extremities. Neurologically she is awake and alert with no focal motor deficits. Test Results: CBC shows a hemoglobin of 11 2 days ago she was 14. Consistent with an upper GI bleed. Her electrolytes are unremarkable or gap is 8 her creatinine is 1. Her PT/INR 13 and 1. Emergency Department Course and Treatment: Patient's been treated with IV Phenergan. IV Protonix. She will be transfused blood. She was given 1 L of normal pressure remains around 80 and I will begin transferring her blood. Treatment Plan: I spoke to general surgery here they felt the patient would be best served at a tertiary center. I spoke to [facility] they have no beds. I spoke to [facility] they are willing to accept the patient to the ICU and are awaiting GI acceptance also. Disposition: Transfer to home in ICU with GI coverage Impression: Acute upper GI bleed with history of prior peptic ulcer disease. Acute anemia Hemorrhagic shock Anticoagulated on Plavix Transfused This note was generated with [employer] dictation software. It may contain incorrect words, spelling, and punctuation that were not noted in review of the chart prior to signing ED Disposition - Plan for ED Patient: Chief Complaint: GI Bleed Referrals: Janel Taylor MD [Primary Care Provider] -
[2017-11-02 10:00] VITALS: BP 65/55; PULSE 91; RESP 21; O2SAT 98
[2017-11-02 10:06] VITALS: BP 65/55; PULSE 91; RESP 21; O2SAT 98
== END 2017-11-02 10:07 | disposition short-term general hospital (02) ==
LOC: ED 08:22
PROVIDERS: Emergency Provider Emergency Medicine; Family Provider Family Medicine; PCP Family Medicine
DX: R57.8 Other shock (principal); K92.2 Gastrointestinal hemorrhage, unspecified; I95.9 Hypotension, unspecified; E11.9 Type 2 diabetes mellitus without complications; Z87.11 Personal history of peptic ulcer disease; Z79.02 Long term (current) use of antithrombotics/antiplatelets; Z79.899 Other long term (current) drug therapy
CPT/HCPCS: 36430; 80048; 85025; 85610; 86850; 86900; 86920; 86922; 96361; 96374; 96375; 99285; J7030; P9016; A4216; J3490

== ENCOUNTER 2017-11-06 16:37 | Emergency (ER) | payer MEDICARE, SELFPAY ==
[2017-11-06 16:37] VITALS: BP 147/78; PULSE 80; RESP 18; TEMP 36.6; O2SAT 95; BMI 39.8
--- NOTE | 2017-11-06 16:55 | ED.VISSUMM ---
- ER Visit Summary Date of Service: 11/06/17 Chief Complaint: Short of breath with exertion History of Present Illness: The patient is a 52 F who complains of shortness of breath for 2 days. She was discharged home [place] 2 days ago. She had a GI bleed. She has bleeding ulcers. She is currently on a PPI. She has supposed to be on oxygen when exerting herself. She is not using the oxygen at all over the past 2 days and she has been home. She feels diffusely weak. Denies chest pain. She feels like her heart is not beating correctly. Just complains of right hip pain. She has had a previous hip replacement. She had a dislocation 1 week after her surgery. She denies any cough or leg swelling. Physical Examination: Vital signs reviewed. HEENT exam unremarkable. Heart is regular rate and rhythm without murmurs. Lungs are clear to auscultation. Abdomen is soft and nontender. Extremities reveal no edema. She has right hip tenderness with palpation, flexion and logroll. Skin exam normal. Neurologic exam normal. Test Results: EKG is normal sinus rhythm with nonspecific ST and T-wave changes. Chest x-ray reveals chronic changes. Hip x-ray reveals a good prosthesis. After studies show a hemoglobin of 8.2 which is unchanged. Troponin normal. BNP 109 Emergency Department Course and Treatment: Patient was given Tylenol and [place]. Unclear as to why she is so short of breath. It could be from the anemia. She is supposed to wear oxygen when she exerts herself but she admittedly has not been doing it. I told her to wear her oxygen. She will need to follow-up with her PCP. Treatment Plan: [] Disposition: Discharge Impression: Dyspnea, anemia, right hip pain This note was generated with [employer] dictation software. It may contain incorrect words, spelling, and punctuation that were not noted in review of the chart prior to signing ED Disposition - Plan for ED Patient: Chief Complaint: Shortness of Breath Referrals: Janel Taylor MD [Primary Care Provider] -
[2017-11-06 16:58] VITALS: O2SAT 95
[2017-11-06 17:41] LABS: Absolute Lymphocyte Count 2.31 X10^3/ul (0.83-4.51); Absolute Neutrophil Count 7.1 X10^3/uL (2.0-7.7); Basophil# 0.04 X10^3/uL; Basophil% 0.4 % (0-1); Eosinophil# 0.31 X10^3/uL; Eosinophils% 2.9 % (0-5); Hematocrit 25.3 % (37-47); Hemoglobin 8.2 g/dl (12.0-15.0); Lymphocyte # 2.31 X10^3/ul (4.0); Lymphocyte % 21.9 % (19-41); Mean Corp Hgb Conc 32.4 g/gl (32-36); Mean Corpuscular Hgb 28.3 pg (27.0-32.0); Mean Corpuscular Volume 87.2 fL (81-99); Mean Platelet Vol. 9.4 fl (6.2-12.0); Monocyte# 0.75 X10^3/uL; Monocyte% 7.1 % (0-10); Neutrophil # 7.14 X10^3/uL (2.7-7.7); Neutrophil % 67.5 % (47-70); Platelet Count 204 K/mm3 (150-450); RBC Distribution Width CV 20.7 % (11.6-14.6); RBC Distribution Width SD 62.8 fl (35.1-43.9); White Blood Count 10.6 K/mm3 (4.4-11.0)
[2017-11-06 17:42] LABS: Differential Indicated SCAN CRITERIA MET; POSITIVE COUNT NO; POSITIVE DIFFERENTIAL NO; POSITIVE MORPHOLOGY YES
[2017-11-06 17:56] LABS: Anion Gap 9 (5-15); BUN 3 mg/dL (7-18); BUN/Creat Ratio 3.9 RATIO (10-20); Chloride 110 mmol/L (98-107); Creatinine, Serum 0.77 mg/dL (0.55-1.02); EST Glomerular Filtration Rate 83 mL/min (>60); Est Glom Filt Rate - Afr Amer 101 mL/min (>60); Glucose 87 mg/dL (74-106); Potassium 3.5 mmol/L (3.5-5.1); Sodium Level 145 mmol/L (136-145)
[2017-11-06 18:02] LABS: Differential Comment SCANNED
[2017-11-06] MEDS: Acetaminophen 500 MG Tablet 1000 MG PO (18:03)
[2017-11-06 18:17] LABS: BNP,B-Type NATRIURETIC PEPTIDE 109.6 pg/mL (0-100)
--- NOTE | 2017-11-06 19:34 | ED.DEP ---
ED Disposition - Plan for ED Patient: Disposition: Home or Assisted Living Chief Complaint: Shortness of Breath Instructions: ED Anemia Type Not Specified Referrals: Janel Taylor MD [Primary Care Provider] -
[2017-11-06] MEDS: HYDROcodone Bitartrate/Apap 5/325 Tablet PO (19:47)
[2017-11-06 19:48] VITALS: BP 133/83; PULSE 78; RESP 18; O2SAT 97
--- NOTE | 2017-11-07 11:15 | CM.ED ---
ED CALLBACK: Follow-up call placed to patient with no answer. Voicemail left with return contact information.
== END 2017-11-06 19:49 | disposition home or self-care (01) ==
PROVIDERS: Emergency Provider Emergency Medicine; Family Provider Family Medicine; PCP Family Medicine
DX: R06.00 Dyspnea, unspecified (principal); D64.9 Anemia, unspecified; M25.551 Pain in right hip; K27.4 Chronic or unspecified peptic ulcer, site unspecified, with hemorrhage; Z79.02 Long term (current) use of antithrombotics/antiplatelets; Z79.899 Other long term (current) drug therapy; Z96.641 Presence of right artificial hip joint
CPT/HCPCS: 71045; 73502; 80048; 83880; 84484; 85025; 93005; 99285; A4216

== ENCOUNTER 2017-11-19 14:55 | Emergency (ER) | payer MEDICARE, SELFPAY ==
[2017-11-19 14:56] VITALS: BP 127/69; PULSE 99; RESP 16; TEMP 36.1; O2SAT 98; BMI 40.6
--- NOTE | 2017-11-19 15:21 | ED.RN ---
PT NOW REPORTS CHEST PAIN, RESPIRATORY AWARE.
--- NOTE | 2017-11-19 15:26 | EKG12_ITS ---
Test Reason : Blood Pressure : / mmHG Vent. Rate : 075 BPM Atrial Rate : 075 BPM P-R Int : 148 ms QRS Dur : 086 ms QT Int : 388 ms P-R-T Axes : 020 011 018 degrees QTc Int : 433 ms Normal sinus rhythm Low voltage QRS (LIMB LEADS) Poor R wave progression Confirmed by LORIE TAFOYA, DESTINY ([id number]), editor managing director SUKUMAR GODINEZ ([id number] on 11/22/2017 2:27:25 PM Referred By: HUA Confirmed By:DESTINY MELO MD
--- NOTE | 2017-11-19 15:31 | ED.DCSUM_ITS ---
- ER Visit Summary Date of Service: 11/19/17 Chief Complaint: Cough History of Present Illness: The patient is a 52 F with history of COPD and smoking who presents for 2 weeks of cough. Patient states she has had a persistent nonproductive cough, with associated chest discomfort, shortness of breath, and nausea. She took her last dose of azithromycin today that was prescribed by her primary care provider. She has not been on steroids recently because she had a GI bleed recently and was told by her healthcare social worker not to take steroids. Patient states she is having intermittent sweats and cold spells but no measured fever. No diarrhea, vomiting, abdominal pain. No rhinorrhea or chest congestion. Patient has been using home breathing treatments and states they are not working. She uses home oxygen only with exertion. Physical Examination: Vital signs: afebrile, hemodynamically stable, no hypoxia on room air General: well nourished, well developed, frequent cough Skin: warm, dry, no rash, no pallor HEENT: normocephalic and atraumatic; PERRL, EOMI, moist mucous membranes Cardiovascular: regular rate and rhythm without murmurs, no peripheral edema, 2 + pulses all distal extremities Respiratory: No increased work of breathing, lungs show diffuse end expiratory wheezing and coarse rhonchi in the bilateral bases Abdominal: Abdomen is soft, nontender with normoactive bowel sounds, no guarding or rebound, no masses MSK: Moves all extremities, no deformities, normal strength Neuro: Awake and alert, oriented ?4. No facial droop, sensation and motor function intact and symmetric Test Results: Abnormal Lab Results 11/19/17 11/19/17 15:54 15:54 WBC 12.5 H RBC 4.00 L Hgb 11.3 L Hct 35.1 L MCV 87.8 MCH 28.3 MCHC 32.2 RDW 18.5 H RDW Differential 59.4 H Plt Count 323 MPV 9.1 Immature Gran % (Auto) 0.200 Neut % (Auto) 77.0 H Lymph % (Auto) 11.5 L [place] % (Auto) 9.1 Eos % (Auto) 1.5 Baso % (Auto) 0.7 Absolute Neuts (auto) 9.6 H Absolute Lymphs (auto) 1.44 Total Counted Not Reportable Differential Comment Sodium 131 L Potassium 4.0 Chloride 102 Carbon Dioxide 24.0 Anion Gap 5 BUN 7 Creatinine 0.90 Estim Creat Clear Calc 60.49 Est GFR (MDRD) Af Amer 84 Est GFR (MDRD) Non-Af 70 BUN/Creatinine Ratio 7.7 L Glucose 138 H Calcium 9.2 Troponin I < 0.015 Clinical Impression(s) from Imaging Studies Chest X-Ray 11/19/17 16:24 IMPRESSION: There is new linear opacity of the right anterior upper lobe suggesting atelectasis or scarring. Electronically Signed: Shirley Flores MD at 17:00 EDT , Service support , Medications Given Discontinued Medications Albuterol Sulfate (Ventolin Aerosols) 2.5 mg INHALATION Q20M FORREST Stop: 11/19/17 16:11 Last Admin: 11/19/17 15:52 Dose: 2.5 mg Admin: 11/19/17 15:52 Dose: 2.5 mg Admin: 11/19/17 15:52 Dose: 2.5 mg Albuterol/Ipratropium (Duoneb) 3 ml INHALATION X1 ONE Stop: 11/19/17 15:27 Last Admin: 11/19/17 15:52 Dose: 3 ml Sodium Chloride () 1,000 mls @ 999 mls/hr IV .Q1H1M ONE Stop: 11/19/17 16:26 Last Admin: 11/19/17 15:52 Dose: 999 mls/hr Methylprednisolone (Solu-Medrol) 125 mg IV X1 ONE Stop: 11/19/17 15:27 Last Admin: 11/19/17 15:52 Dose: 125 mg Emergency Department Course and Treatment: Patient has a frequent moist cough and lung exam consistent with acute bronchitis in a patient with known COPD. Patient was given a series of breathing treatments. She is not on any NSAIDs, and thus a short course of steroids should not cause a significant increase in GI bleeding. Patient was given Solu-Medrol. Labs showed mild leukocytosis of 12.5. Otherwise no significant derangements. Chest x-ray showed a small area of atelectasis, and given patient's clinical picture it may also be a small right upper lobe infiltrate. Patient was started on Levaquin for coverage of COPD exacerbation with questionable early pneumonia. On reevaluation patient was no longer coughing and lung exam showed improvement in the rhonchi and wheezes. Patient was given a prednisone burst and the course of Levaquin. She is to follow-up with her doctor if any further concerns or return if worsening condition. Discharge home. Treatment Plan: [] Disposition: [] Impression: COPD exacerbation, bronchitis This note was generated with [employer] dictation software. It may contain incorrect words, spelling, and punctuation that were not noted in review of the chart prior to signing ED Disposition - Plan for ED Patient: Disposition: Home or Assisted Living Chief Complaint: Shortness of Breath Instructions: Acute Bronchitis, ED COPD Flare Prescriptions: Levofloxacin [Levaquin] 750 mg PO DAILY #5 tab Prednisone [Deltasone] 40 mg PO DAILY #10 tab Referrals: Janel Taylor MD [Primary Care Provider] - 3-5 Days if not improving Additional Instructions: You were treated today for mild COPD exacerbation and continued cough and chest congestion, with concern for ongoing bronchitis or early pneumonia. Take the antibiotic and steroids as prescribed. Continue your home COPD treatments. Follow-up with your doctor if you continue to have cough despite the prescriptions. You may use [id number] pain medication and cough medication for symptom relief. If you have any worsening of your condition or any new concerning symptoms, please return immediately to the emergency department for another evaluation.
--- NOTE | 2017-11-19 15:50 | ED.RN ---
PT REQUESTING MEDICINE FOR HEADACHE. DR. SEQUEIRA AWARE AND OFFERS TYLENOL. PT REFUSING TYLENOL.
[2017-11-19 15:52] VITALS: PULSE 101; RESP 20
[2017-11-19] MEDS: Albuterol 2.5 MG/3 ML VIAL.NEB. INHALATION ×3 (15:52)
[2017-11-19] MEDS: 0.9% Normal Saline 1,000 ML 999 ML IV (15:52)
[2017-11-19] MEDS: MethylPREDNISolone 125 MG/2 ML Vial IV (15:52)
[2017-11-19] MEDS: Ipratropium/Albuterol Sulfate 3 ML AMPUL.NEB INHALATION (15:52)
[2017-11-19 16:05] LABS: Absolute Lymphocyte Count 1.44 X10^3/ul (0.83-4.51); Absolute Neutrophil Count 9.6 X10^3/uL (2.0-7.7); Basophil# 0.09 X10^3/uL; Basophil% 0.7 % (0-1); Differential Indicated SCAN CRITERIA MET; Eosinophil# 0.19 X10^3/uL; Eosinophils% 1.5 % (0-5); Hematocrit 35.1 % (37-47); Hemoglobin 11.3 g/dl (12.0-15.0); Lymphocyte # 1.44 X10^3/ul (4.0); Lymphocyte % 11.5 % (19-41); Mean Corp Hgb Conc 32.2 g/gl (32-36); Mean Corpuscular Hgb 28.3 pg (27.0-32.0); Mean Corpuscular Volume 87.8 fL (81-99); Mean Platelet Vol. 9.1 fl (6.2-12.0); Monocyte# 1.13 X10^3/uL; Monocyte% 9.1 % (0-10); POSITIVE COUNT NO; POSITIVE DIFFERENTIAL NO; POSITIVE MORPHOLOGY YES; Platelet Count 323 K/mm3 (150-450); RBC Distribution Width CV 18.5 % (11.6-14.6); RBC Distribution Width SD 59.4 fl (35.1-43.9); White Blood Count 12.5 K/mm3 (4.4-11.0)
[2017-11-19 16:18] LABS: Anion Gap 5 (5-15); BUN 7 mg/dL (7-18); BUN/Creat Ratio 7.7 RATIO (10-20); Calcium,Total 9.2 mg/dL (8.5-10.1); Chloride 102 mmol/L (98-107); EST Glomerular Filtration Rate 70 mL/min (>60); Est Glom Filt Rate - Afr Amer 84 mL/min (>60); Estimated Creatinine Clearance 60.49 ml/min; Glucose 138 mg/dL (74-106); Sodium Level 131 mmol/L (136-145)
--- NOTE | 2017-11-19 16:24 | RAD_ITS ---
STUDY: X-RAY CHEST REASON FOR EXAM: Female, 52 years old. DYSPNEA/SOB AND COUGH. HX OF COPD. HX OF A BREAST REDUCTION. TECHNIQUE: PA and lateral views of the chest. COMPARISON: November 06, 2017 FINDINGS: There is new linear opacity of the right anterior upper lobe suggesting atelectasis or scarring. There is no demonstrated pleural abnormality. Normal size heart. Normal mediastinum and alden. Normal visualized pulmonary arteries. There is atherosclerotic calcification of the aortic arch with tortuosity. There are diffuse degenerative changes of the visualized thoracic spine. Normal visualized ribs, clavicles, and shoulders. There is no demonstrated abnormality of the visualized soft tissue structures of the upper abdomen. RAD/Chest PA and Lateral IMPRESSION: There is new linear opacity of the right anterior upper lobe suggesting atelectasis or scarring. Electronically Signed: Shirley Flores MD at 17:00 EDT , Service support ,
[2017-11-19 17:00] VITALS: BP 118/63; PULSE 78; RESP 19; O2SAT 95
--- NOTE | 2017-11-19 17:42 | ED.DEP ---
ED Disposition - Plan for ED Patient: Disposition: Home or Assisted Living Chief Complaint: Shortness of Breath Instructions: ED COPD Flare, Acute Bronchitis Prescriptions: Levofloxacin [Levaquin] 750 mg PO DAILY #5 tab Prednisone [Deltasone] 40 mg PO DAILY #10 tab Referrals: Janel Taylor MD [Primary Care Provider] - 3-5 Days if not improving Additional Instructions: You were treated today for mild COPD exacerbation and continued cough and chest congestion, with concern for ongoing bronchitis or early pneumonia. Take the antibiotic and steroids as prescribed. Continue your home COPD treatments. Follow-up with your doctor if you continue to have cough despite the prescriptions. You may use [id number] pain medication and cough medication for symptom relief. If you have any worsening of your condition or any new concerning symptoms, please return immediately to the emergency department for another evaluation.
[2017-11-19 17:51] VITALS: BP 118/63; PULSE 77; RESP 18; O2SAT 96
--- NOTE | 2017-11-19 17:51 | ED.RN ---
REVIEWED D/C INSTRUCTIONS, FOLLOW UP CARE, PRESCRIPTIONS, AND S/S THAT WOULD WARRANT A RETURN TO THE ED WITH PT. PT VERBALIZED AN UNDERSTANDING AND DENIES FURTHER QUESTIONS FOR THIS RN. PT SKIN P/W/D, RESP EVEN AND UNLABORED, PT A&O X3, NO DISTRESS NOTED. PT AMBULATED OUT OF ED, GAIT STEADY.
== END 2017-11-19 17:53 | disposition home or self-care (01) ==
PROVIDERS: Emergency Provider Emergency Medicine; Family Provider Family Medicine; PCP Family Medicine
DX: J44.0 Chronic obstructive pulmonary disease with (acute) lower respiratory infection (principal); J44.1 Chronic obstructive pulmonary disease with (acute) exacerbation; J20.9 Acute bronchitis, unspecified; R11.0 Nausea; R51 Headache; Z72.0 Tobacco use; Z79.02 Long term (current) use of antithrombotics/antiplatelets; Z79.899 Other long term (current) drug therapy; Z87.19 Personal history of other diseases of the digestive system
CPT/HCPCS: 71046; 80048; 84484; 85025; 93005; 94640; 96361; 96374; 99285; J7030; A4216

== ENCOUNTER 2017-11-25 17:31 | Observation (INO) | payer MEDICARE, SELFPAY ==
[2017-11-25 17:32] VITALS: BP 119/57; PULSE 77; RESP 18; TEMP 37; O2SAT 97; BMI 42.6
--- NOTE | 2017-11-25 18:26 | EKG12_ITS ---
Test Reason : CHEST PAIN Blood Pressure : / mmHG Vent. Rate : 075 BPM Atrial Rate : 075 BPM P-R Int : 158 ms QRS Dur : 088 ms QT Int : 348 ms P-R-T Axes : 034 023 025 degrees QTc Int : 388 ms Normal sinus rhythm Low voltage QRS Cannot rule out Anterior infarct , age undetermined Abnormal ECG Confirmed by MARYAM TAFOYA, JAZZMINE ([id number]), editor farm journal USKUMAR GODINEZ ([id number]) on 11/29/2017 8:56:45 AM Referred By: Confirmed By:JAZZMINE FRANCISCO MD
[2017-11-25] MEDS: Aspirin 81 MG TAB.CHEW 324 MG PO (18:35)
[2017-11-25 18:44] LABS: Absolute Lymphocyte Count 2.55 X10^3/ul (0.83-4.51); Basophil# 0.09 X10^3/uL; Basophil% 0.7 % (0-1); Eosinophil# 0.36 X10^3/uL; Eosinophils% 2.7 % (0-5); Hematocrit 36.1 % (37-47); Hemoglobin 11.6 g/dl (12.0-15.0); Lymphocyte # 2.55 X10^3/ul (4.0); Lymphocyte % 19.2 % (19-41); Mean Corp Hgb Conc 32.1 g/gl (32-36); Mean Corpuscular Hgb 28.6 pg (27.0-32.0); Mean Corpuscular Volume 88.9 fL (81-99); Mean Platelet Vol. 9.1 fl (6.2-12.0); Monocyte# 1.19 X10^3/uL; Neutrophil # 9.03 X10^3/uL (2.7-7.7); Platelet Count 272 K/mm3 (150-450); RBC Distribution Width CV 18.2 % (11.6-14.6); RBC Distribution Width SD 59.5 fl (35.1-43.9); Red Blood Count 4.06 M/mm3 (4.2-5.4); White Blood Count 13.3 K/mm3 (4.4-11.0)
--- NOTE | 2017-11-25 18:44 | RAD_ITS ---
STUDY: X-RAY CHEST REASON FOR EXAM: Female, 52 years old. Shortness of breath with central chest pain. TECHNIQUE: Single frontal view of the chest. COMPARISON: November 19, 2017 FINDINGS: The lungs are hyperexpanded and unchanged. There is no demonstrated pleural abnormality. There is stable cardiomegaly. Normal mediastinum and alden. Normal visualized pulmonary arteries. Normal visualized aortic arch and descending thoracic aorta. Normal visualized thoracic spine. Normal visualized ribs, clavicles, and shoulders. There is no demonstrated abnormality of the visualized soft tissue structures of the upper abdomen. RAD/Chest 1 View (Portable) IMPRESSION: Stable appearance of the chest with no new or acute pathology. Electronically Signed: Bassem Singh MD at 19:16 EDT , Service support ,
[2017-11-25 18:45] LABS: POSITIVE COUNT NO; POSITIVE DIFFERENTIAL NO; POSITIVE MORPHOLOGY NO
[2017-11-25 19:07] LABS: Anion Gap 6 (5-15); BUN 11 mg/dL (7-18); BUN/Creat Ratio 12.8 RATIO (10-20); Calcium,Total 9.3 mg/dL (8.5-10.1); Chloride 99 mmol/L (98-107); Creatinine, Serum 0.86 mg/dL (0.55-1.02); EST Glomerular Filtration Rate 74 mL/min (>60); Est Glom Filt Rate - Afr Amer 89 mL/min (>60); Glucose 157 mg/dL (74-106); Potassium 4.1 mmol/L (3.5-5.1); Sodium Level 131 mmol/L (136-145)
--- NOTE | 2017-11-25 20:12 | ED.VISSUMM ---
- ER Visit Summary Date of Service: 11/25/17 Chief Complaint: Chest pain History of Present Illness: The patient is a 52 F with chest pain that started 1-1/2 hours ago lasted 15 minutes it was aching and sharp and stabbing. No fever or chills associated with this. She has multiple risk factors including 5 stents. No PE risk factors pain is not radiating to her back, it is not tearing, she has no neurological symptoms. She is now asymptomatic Physical Examination: Not appear in acute distress. Moist mucous membranes, no obvious facial deformity No C-spine tenderness supple neck. Regular rate and rhythm without any obvious murmurs Clear lungs bilaterally speaking in full sentences without any obvious respiratory distress Abdomen soft and nontender no guarding or rebound Moves all extremities without any difficulty or pain. Skin does not show any obvious rashes or lesions, no trauma. Alert oriented ?3 with no gross focal deficit Emergency Department Course and Treatment: [Patient has a heart score of 5, EKG and troponin are unremarkable we will admit for cardiac rule out] Admitted in stable condition Impression: [Chest pain] This note was generated with [employer] dictation software. It may contain incorrect words, spelling, and punctuation that were not noted in review of the chart prior to signing ED Disposition - Plan for ED Patient: Chief Complaint: Chest Pain Referrals: Janel Taylor MD [Primary Care Provider] -
--- NOTE | 2017-11-25 20:15 | ED.DCSUM_ITS ---
- ER Visit Summary Date of Service: 11/25/17 Chief Complaint: Chest pain History of Present Illness: The patient is a 52 F with chest pain that started 1 -1/2 hours ago lasted 15 minutes it was aching and sharp and stabbing. No fever or chills associated with this. She has multiple risk factors including 5 stents. No PE risk factors pain is not radiating to her back, it is not tearing, she has no neurological symptoms. She is now asymptomatic Physical Examination: Not appear in acute distress. Moist mucous membranes, no obvious facial deformity No C-spine tenderness supple neck. Regular rate and rhythm without any obvious murmurs Clear lungs bilaterally speaking in full sentences without any obvious respiratory distress Abdomen soft and nontender no guarding or rebound Moves all extremities without any difficulty or pain. Skin does not show any obvious rashes or lesions, no trauma. Alert oriented ?3 with no gross focal deficit Emergency Department Course and Treatment: [Patient has a heart score of 5, EKG and troponin are unremarkable we will admit for cardiac rule out] Admitted in stable condition Impression: [Chest pain] This note was generated with [employer] dictation software. It may contain incorrect words, spelling, and punctuation that were not noted in review of the chart prior to signing ED Disposition - Plan for ED Patient: Chief Complaint: Chest Pain Referrals: Janel Taylor MD [Primary Care Provider] -
[2017-11-25 21:15] VITALS: BP 139/63; BP 142/77; PULSE 70; RESP 18; TEMP 37; O2SAT 95
--- NOTE | 2017-11-25 21:16 | EKG12_ITS ---
Test Reason : ADMIT Blood Pressure : / mmHG Vent. Rate : 063 BPM Atrial Rate : 063 BPM P-R Int : 152 ms QRS Dur : 092 ms QT Int : 398 ms P-R-T Axes : 007 014 014 degrees QTc Int : 407 ms Normal sinus rhythm Cannot rule out Anterior infarct , age undetermined Abnormal ECG When compared with ECG of 25-NOV-2017 17:33, MANUAL COMPARISON REQUIRED, DATA IS UNCONFIRMED Confirmed by LORIE TAFOYA, DESTINY ([id number]), graphic editor SUKUMAR GODINEZ ([id number]) on 12/01/2017 2:38:06 PM Referred By: GABRIELA Confirmed By:DESTINY MELO MD
[2017-11-25 21:17] VITALS: BMI 41.2
[2017-11-25 21:22] VITALS: O2SAT 94
[2017-11-25 21:28] VITALS: PULSE 68
[2017-11-25 21:33] VITALS: BMI 41.2
--- NOTE | 2017-11-25 21:34 | PCM.HP.STD ---
Problem List (1) Stage 2 moderate COPD by GOLD classification Status: Chronic (2) HTN (hypertension) Status: Chronic (3) Chronic neutrophilia Status: Chronic (4) Chest pain Status: Acute (5) Morbid obesity Status: Chronic (6) Type 2 diabetes mellitus Status: Chronic (7) Depression Status: Chronic (8) Hyperlipidemia Status: Chronic (9) CAD (coronary artery disease) Status: Chronic (10) RACHEL (obstructive sleep apnea) Status: Chronic Comment: 17/13 cm of water (11) Tobacco abuse Status: Chronic History of Present Illness Date of Admission: 11/25/17 Chief Complaint: chest pain The patient is a 52 year old F who the PMH as above who presents with a 15 minute episode of chest pain while walking that she described as substernal and crushing without radiation. She was not SOB and did not become lightheaded or dizzy. She called EMS and did not require nitro for the pain to resolve and is currently pain free with rest. She has never had this type of pain before. Her 3 prior CO had pain consistent with indigestion. Initial troponin in the ER was normal and her EKG was unchanged from 5 days ago. 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 Iron deficiency anemia due to dietary causes (Chronic) exact cause of iron def anemia unknown-felt likely secondary to past history gastric bypass- although chronic blood loss etiology a possibility (has never had colonoscopy)-further workup including hemoccult stool is recommended Microcytic anemia (Chronic) Morbid obesity with BMI of 45.0-49.9, adult (Chronic) Pulmonary hypertension (Chronic) Chronic narcotic use (Chronic) Depression (Chronic) Gastroesophageal reflux disease (Chronic) Parathyroid abnormality (Chronic) History of PTCA (Chronic) Vitamin D deficiency (Chronic) Hyperlipidemia (Chronic) History of peptic ulcer disease (Chronic) Thyroid nodule (Chronic) deemed to be benign. Benign essential hypertension (Chronic) CAD (coronary artery disease) (Chronic) RACHEL (obstructive sleep apnea) (Chronic) 17/13 cm of water Spinal stenosis of lumbar region at multiple levels (Chronic) Tobacco abuse (Chronic) COPD (chronic obstructive pulmonary disease) with emphysema (Chronic) Medical History: Medical History (Last Reviewed 11/10/17 @ 09:30 by Rosanna Hampton NP-C) HTN (hypertension) (Chronic) I10 Peptic ulcer (Acute) K27.9 Bloody stool (Acute) K92.1 Acute respiratory failure (Acute) J96.00 CAP (community acquired pneumonia) (Acute) J18.9 Epigastric pain (Chronic) R10.13 Chronic neutrophilia (Chronic) D72.828 Iron deficiency anemia following bariatric surgery (Chronic) D50.9 Osteoarthritis (Chronic) M19.90 Chest pain (Acute) R07.9 Morbid obesity (Chronic) E66.01 Neutrophilic leukocytosis (Chronic) D72.9 Viral gastroenteritis (Acute) A08.4 Type 2 diabetes mellitus (Chronic) E11.9 Schizophrenia (Chronic) F20.9 Hip osteoarthritis (Chronic) M16.9 with chronic pain-right hip Iron deficiency anemia due to dietary causes (Chronic) D50.8 exact cause of iron def anemia unknown-felt likely secondary to past history gastric bypass- although chronic blood loss etiology a possibility (has never had colonoscopy)-further workup including hemoccult stool is recommended Microcytic anemia (Chronic) D50.9 Morbid obesity with BMI of 45.0-49.9, adult (Chronic) E66.01, Z68.42 Pulmonary hypertension (Chronic) I27.2 Chronic narcotic use (Chronic) F11.90 Depression (Chronic) F32.9 Gastroesophageal reflux disease (Chronic) K21.9 Parathyroid abnormality (Chronic) E21.5 Vitamin D deficiency (Chronic) E55.9 Hyperlipidemia (Chronic) E78.5 History of peptic ulcer disease (Chronic) Z87.11 Thyroid nodule (Chronic) E04.1 deemed to be benign. Benign essential hypertension (Chronic) I10 CAD (coronary artery disease) (Chronic) I25.10 RACHEL (obstructive sleep apnea) (Chronic) G47.33 17/13 cm of water Spinal stenosis of lumbar region at multiple levels (Chronic) M48.06 Tobacco abuse (Chronic) Z72.0 COPD (chronic obstructive pulmonary disease) with emphysema (Chronic) J43.9 Allergies amoxicillin Allergy (Verified 11/25/17 17:35) Itching clarithromycin [From Biaxin] Allergy (Verified 11/25/17 17:35) Unknown erythromycin base Allergy (Verified 11/25/17 17:35) Unknown methadone Allergy (Verified 11/25/17 17:35) Unknown metolazone Allergy (Verified 11/25/17 17:35) Unknown Penicillins Allergy (Verified 11/25/17 17:35) Hives Sulfa (Sulfonamide Antibiotics) Allergy (Verified 11/25/17 17:35) Hives ibuprofen Adverse Reaction (Verified 11/25/17 17:35) Other morphine Adverse Reaction (Verified 11/25/17 17:35) Other Home Medications: Ambulatory Orders Medication Instructions Recorded Atorvastatin Calcium [Lipitor] 80 mg PO QHS 08/22/15 Clopidogrel Bisulfate [Plavix] 75 mg PO DAILY 08/22/15 Metoprolol(XL)Succ [Toprol Xl 25 mg PO DAILY 08/22/15 (Beta Trino)] Risperidone [Risperdal] 4 mg PO QHS 04/28/16 Nitroglycerin 0.4 mg SL PRN PRN 11/08/16 Duloxetine Hcl [Cymbalta] 120 mg PO DAILY 01/16/17 Buspirone HCl 10 mg PO TID 02/16/17 amlodipine 10 mg tablet 10 mg PO DAILY tab 05/02/17 lisinopril 20 mg tablet 20 mg PO QHS #30 tab 05/02/17 albuterol sulfate HFA 90 2 puff INHALATION Q4H PRN PRN #18 g 05/31/17 mcg/actuation aerosol inhaler Omeprazole 40 mg PO BID 06/11/17 potassium chloride ER 10 mEq 10 meq PO DAILY #60 tab 06/16/17 tablet,extended release(part/cryst) tiotropium bromide 2.5 2 puff INHALATION DAILY #4 g 08/01/17 mcg/actuation mist for inhalation sennosides 8.6 mg-docusate sodium 1 tab PO BID PRN #60 tab 08/02/17 50 mg tablet trazodone 100 mg tablet 200 mg PO QHS PRN #60 tab 08/29/17 fluticasone-salmeterol 115 mcg-21 2 puff INHALATION BID #1 inh 09/05/17 mcg/actuation HFA aerosol inhaler albuterol sulfate 2.5 mg/3 mL 2.5 mg INHALATION Q4H PRN #180 vial 11/09/17 (0.083 %) solution for nebulization Prednisone [Deltasone] 40 mg PO DAILY #10 tab 11/19/17 Duloxetine Hcl [Cymbalta] 60 mg PO DAILY 11/25/17 Pregabalin [Lyrica] 50 mg PO TID 11/25/17 Sucralfate [Carafate] 1 g PO TID 11/25/17 Surgical History: Surgical History (Last Reviewed 11/10/17 @ 09:30 by ERROL Cooper) History of PTCA (Chronic) Z98.61 History of appendectomy Z98.890, Z90.49 History of carpal tunnel surgery of left wrist Z98.890 History of cholecystectomy Z98.890, Z90.49 History of gastric bypass Z98.84 History of tonsillectomy Z98.890, Z90.89 history of carpal tunnel release left wrist 2018 history of right hip surgery Surgical History: appendectomy, cholecystectomy, tonsillectomy, - Psychiatric History: Schizophrenia [employer] History: No pertinent [employer]OR history, - Smoking Status: Heavy Smoker (>10/day) Alcohol: None Drugs: None - *Family History Sibling Family History: Family History (Last Reviewed 11/10/17 @ 09:30 by ERROL Cooper) Mother Heart disease Cancer Father Hypertension Arthritis Hyperlipemia Grandmother Breast cancer Heart disease Grandfather Heart disease History Items: Hypertension Maternal Family History: Family History (Last Reviewed 11/10/17 @ 09:30 by ERROL Cooper) Mother Heart disease Cancer Father Hypertension Arthritis Hyperlipemia Grandmother Breast cancer Heart disease Grandfather Heart disease History Items: Cancer, Heart Disease, - Paternal Family History: Family History (Last Reviewed 11/10/17 @ 09:30 by ERROL Cooper) Mother Heart disease Cancer Father Hypertension Arthritis Hyperlipemia Grandmother Breast cancer Heart disease Grandfather Heart disease History Items: Hypertension, - Review of Systems Constitutional: Denies: Chills, Fever, Weight Change HEENT: Denies: Head Aches, Sinus Congestion, Sinus Drainage Cardiovascular: Reports: Chest Pain, Chest Pressure. Denies: Palpitations Respiratory: Denies: Cough, Shortness of breath at rest, Sputum production Gastrointestinal: Denies: Abdominal Pain, Nausea, Vomiting Genitourinary: Denies: Dysuria Musculoskeletal: Denies: Joint Pain, Joint Tenderness Skin: Denies: Rash, Wounds Neurological: Denies: Numbness, Tingling, Focal weakness Psychiatric: Denies: Anxiety, Depression Hematologic/ Lymphatic: Denies: Easy Bruising, Easy Bleeding VTE Information - Inpt Only VTE Present on Admission: No - Physical Exam General: Alert, Oriented x3, Cooperative, No apparent distress HEENT: Atraumatic, PERRLA, EOMI, Normocephalic Oral: Moist Mucosa Neck: Supple, No JVD Lungs: Normal air movement, Wheezes Cardiovascular: Regular rate, Regular Rhythm, Normal S1, Normal S2, No murmurs Abdomen: Soft, Non Tender, Non-Distended, No Hepato-splenomegaly, Obese Extremities: No edema, Capillary Refill Less than 3 Seconds Skin: No rashes, No breakdown Musculoskeletal: No Tenderness to Palpation of Joints or Extremities Neurological: Neuro grossly intact, Sensory exam intact to light touch and pain Psych/Mental Status: Normal Affect, Appropriate Vital Signs Temp Pulse Resp BP Pulse Ox 98.6 F 70 18 142/77 H 94 11/25/17 21:15 11/25/17 21:15 11/25/17 21:15 11/25/17 21:15 11/25/17 21:22 Oxygen Delivery Method Room Air Weight: 232 lb 9.403 oz Body Mass Index (BMI) 41.2 Assessment/Plan All Active Problems (Last Reviewed 11/10/17 @ 09:30 by Rosanna Hampton NP-C) Tiredness (Acute) PND (post-nasal drip) (Acute) Peptic ulcer (Acute) Bloody stool (Acute) Acute respiratory failure (Acute) CAP (community acquired pneumonia) (Acute) Chest pain (Acute) Viral gastroenteritis (Acute) Diarrhea (Resolved) Hypokalemia (Resolved) 1. Chest pain/CAD s/p 5 stents over 3 cardiac caths/HTN/HLD - Initial troponin negative, will trend - C/w her lisinopril, BB, plavix, Norvasc and lipitor - Will check a magnesium level and a lipid level - EKG is unchanged - She had an echo a few years ago with a normal EF - She follows with the [facility] [place] and thinks she had a stress test over a year ago - Will repeat a nuclear stress test in the am 2. COPD - She was recently treated as an outpatient for an exacerbation - Completed steroids on - Still with wheezes, will resume home medications and monitor 3. Depression - Stable - c/w cymbalta, buspar, and risperidone 4. GERD - stable - c/w PPI and carafate DVT: Heparin/SCDs Diet: Cardiac then NPO for stress Code Visit OBSV E&M: [id number] Initial observation care L3
[2017-11-25 22:06] LABS: Magnesium 1.9 mg/dL (1.6-2.6)
[2017-11-25] MEDS: Albuterol 2.5 MG/3 ML VIAL.NEB. INHALATION (22:29)
[2017-11-25 22:30] VITALS: PULSE 80; RESP 18
[2017-11-25] MEDS: Pregabalin 50 MG Capsule PO (23:05)
[2017-11-25] MEDS: Acetaminophen 325 MG Tablet 650 MG PO (23:05)
[2017-11-25] MEDS: busPIRone 5 MG Tablet 10 MG PO (23:06)
[2017-11-25] MEDS: Pantoprazole Sodium 40 MG Tablet PO (23:06)
[2017-11-25] MEDS: Atorvastatin Calcium 80 MG Tablet PO (23:06)
[2017-11-25] MEDS: Lisinopril 20 MG Tablet PO (23:06)
[2017-11-25] MEDS: Heparin Injection (Vial) 5,000 UNIT/ML VIAL 5000 UNIT SC (23:06)
[2017-11-25] MEDS: 0.9% Normal Saline 1,000 ML 100 ML IV (23:07)
[2017-11-25] MEDS: 0.9% NaCl Peripheral Flush Adult/Peds IV (23:07)
[2017-11-25] MEDS: RisperiDONE 2 MG Tablet 4 MG PO (23:07)
[2017-11-25 23:30] VITALS: PULSE 65
[2017-11-26] VITALS (8 sets, daily range): BP systolic 122–131; BP diastolic 70–75; PULSE 60–89; RESP 16–24; TEMP 36.6–37.1; O2SAT 95–98
[2017-11-26] MEDS: Acetaminophen 325 MG Tablet 650 MG PO ×3 (03:27→12:17)
[2017-11-26] MEDS: Ipratropium/Albuterol Sulfate 3 ML AMPUL.NEB INHALATION ×2 (03:49→06:54)
[2017-11-26] MEDS: Pregabalin 50 MG Capsule PO (06:09)
[2017-11-26] MEDS: busPIRone 5 MG Tablet 10 MG PO (06:09)
[2017-11-26] MEDS: Budesonide Respules 0.5 MG/2 ML AMPUL.NEB. INHALATION (06:55)
[2017-11-26 06:56] LABS: Absolute Neutrophil Count 7.1 X10^3/uL (2.0-7.7); Basophil# 0.07 X10^3/uL; Basophil% 0.7 % (0-1); Eosinophil# 0.46 X10^3/uL; Eosinophils% 4.3 % (0-5); Hematocrit 36.9 % (37-47); Hemoglobin 11.6 g/dl (12.0-15.0); Lymphocyte % 19.7 % (19-41); Mean Corp Hgb Conc 31.4 g/gl (32-36); Mean Corpuscular Hgb 28.2 pg (27.0-32.0); Mean Corpuscular Volume 89.8 fL (81-99); Mean Platelet Vol. 9.1 fl (6.2-12.0); Monocyte# 0.94 X10^3/uL; Monocyte% 8.8 % (0-10); Neutrophil # 7.06 X10^3/uL (2.7-7.7); Platelet Count 258 K/mm3 (150-450); RBC Distribution Width CV 18.1 % (11.6-14.6); Red Blood Count 4.11 M/mm3 (4.2-5.4); White Blood Count 10.7 K/mm3 (4.4-11.0)
[2017-11-26 06:58] LABS: POSITIVE COUNT NO; POSITIVE DIFFERENTIAL NO; POSITIVE MORPHOLOGY NO
[2017-11-26 07:06] LABS: Anion Gap 7 (5-15); BUN 12 mg/dL (7-18); BUN/Creat Ratio 17.9 RATIO (10-20); Calcium,Total 9.1 mg/dL (8.5-10.1); Chloride 104 mmol/L (98-107); Creatinine, Serum 0.67 mg/dL (0.55-1.02); EST Glomerular Filtration Rate 98 mL/min (>60); Est Glom Filt Rate - Afr Amer 119 mL/min (>60); Estimated Creatinine Clearance 81.25 ml/min; Glucose 125 mg/dL (74-106); Potassium 3.9 mmol/L (3.5-5.1); Sodium Level 139 mmol/L (136-145)
[2017-11-26] MEDS: 0.9% Normal Saline 1,000 ML 100 ML IV (09:32)
[2017-11-26] MEDS: amLODIPine 10 MG Tablet PO (09:34)
[2017-11-26] MEDS: Pantoprazole Sodium 40 MG Tablet PO (09:34)
[2017-11-26] MEDS: Clopidogrel Bisulfate 75 MG Tablet PO (09:34)
[2017-11-26] MEDS: DULoxetine Hcl 60 MG Capsule 120 MG PO (09:34)
[2017-11-26] MEDS: Heparin Injection (Vial) 5,000 UNIT/ML VIAL 5000 UNIT SC (09:34)
[2017-11-26] MEDS: Metoprolol(XL)Succ 25 MG Tablet PO (09:34)
--- NOTE | 2017-11-26 12:50 | NURSING ---
Patient requesting to leave AMA. aware and talked to patient. Patient stated she would stay for stress test in the AM but then changed her mind again. Patient signed form. IV taken out. Heart monitor off.
--- NOTE | 2017-11-26 12:57 | NURSING ---
Patient left unit at 1255 AMA.
--- NOTE | 2017-11-26 13:18 | PCM.DC.SUM ---
<Glenn Guerra - Last Filed: 11/26/17 13:18> Discharge Date and Diagnosis Date of Admission: 11/25/17 Date of Discharge: 11/26/17 - Primary Discharge Diagnosis Chest pain Hx CAD, [place], stents HTN DMt2 HLD RACHEL Tobacco abuse COPD - Secondary Discharge Diagnosis Chronic Problems (Last Reviewed 11/10/17 @ 09:30 by Rosanna Hampton NP-C) Iron deficiency (Chronic) Stage 2 moderate COPD by GOLD classification (Chronic) HTN (hypertension) (Chronic) Epigastric pain (Chronic) Chronic neutrophilia (Chronic) Iron deficiency anemia following bariatric surgery (Chronic) Osteoarthritis (Chronic) Morbid obesity (Chronic) Neutrophilic leukocytosis (Chronic) Type 2 diabetes mellitus (Chronic) Schizophrenia (Chronic) Hip osteoarthritis (Chronic) with chronic pain-right hip Iron deficiency anemia due to dietary causes (Chronic) exact cause of iron def anemia unknown-felt likely secondary to past history gastric bypass- although chronic blood loss etiology a possibility (has never had colonoscopy)-further workup including hemoccult stool is recommended Microcytic anemia (Chronic) Morbid obesity with BMI of 45.0-49.9, adult (Chronic) Pulmonary hypertension (Chronic) Chronic narcotic use (Chronic) Depression (Chronic) Gastroesophageal reflux disease (Chronic) Parathyroid abnormality (Chronic) History of PTCA (Chronic) Vitamin D deficiency (Chronic) Hyperlipidemia (Chronic) History of peptic ulcer disease (Chronic) Thyroid nodule (Chronic) deemed to be benign. Benign essential hypertension (Chronic) CAD (coronary artery disease) (Chronic) RACHEL (obstructive sleep apnea) (Chronic) 17/13 cm of water Spinal stenosis of lumbar region at multiple levels (Chronic) Tobacco abuse (Chronic) COPD (chronic obstructive pulmonary disease) with emphysema (Chronic) Hospital Course and Treatment Imaging Results: RAD/Chest 1 View (Portable) IMPRESSION: Stable appearance of the chest with no new or acute pathology. Operations: None, total hip replacement Procedures: None Summary of Care Provided: Physical exam on day of discharge: General: Resting comfortably NAD Psych: A/Ox3 normal affect HEENT: PEARRLA AT NC Neck: Supple NT CV: RRR no m/t/r/g/h Resp: CTA Abd: [id number] Soft NT no guarding or rigidity Ext: DP2+= no edema Skin: W/D normal turgor Lymph/Heme: No active bleeding or adenopathy Neuro: CN2-12 intact Hospital course: The patient is a 52 year old F with a hx of CAD, prior stents, prior WI, DMt2, HTN, HLD, nicotine abuse, COPD who presented to the ER with crushing chest pain with exertion. She came to the ER by squad and had negative EKG, negative Troponin, negative CXR. She was admitted for chest pain workup. The following day she had no further chest pain. She was ambulating around the unit without dificulty. No events on tele. Negative troponin x3. The patient did not want to stay and get a stress test on Monday. I advised her that with her type of chest pain and severe cardiac hx and multiple risk factors I could not advise that she be discharged. She decided to leave AMA. She plans to see her own postulant Dr. Conway. This patient was seen by Glenn Guerra PA-C under the supervision of Doctor Catrachito. [] Discharge Diet: Low fat/ Low Cholesterol, 1800 Calorie Control Diet, 2000 mg Sodium Diet Discharge Activity: Return to Normal Activity Home Medications: Medications to take at Discharge Atorvastatin Calcium [Lipitor] 80 mg PO QHS 08/22/15 Clopidogrel Bisulfate [Plavix] 75 mg PO DAILY 08/22/15 Metoprolol(XL)Succ [Toprol Xl (Beta Trino)] 25 mg PO DAILY 08/22/15 Risperidone [Risperdal] 4 mg PO QHS 04/28/16 Nitroglycerin 0.4 mg SL PRN PRN 11/08/16 Duloxetine Hcl [Cymbalta] 120 mg PO DAILY 01/16/17 Buspirone HCl 10 mg PO TID 02/16/17 amlodipine 10 mg tablet 10 mg PO DAILY tab 05/02/17 lisinopril 20 mg tablet 20 mg PO QHS #30 tab 05/02/17 albuterol sulfate HFA 90 mcg/actuation aerosol inhaler 2 puff INHALATION Q4H PRN PRN #18 g 05/31/17 Omeprazole 40 mg PO BID 06/11/17 potassium chloride ER 10 mEq tablet,extended release(part/cryst) 10 meq PO DAILY #60 tab 06/16/17 tiotropium bromide 2.5 mcg/actuation mist for inhalation 2 puff INHALATION DAILY #4 g 08/01/17 sennosides 8.6 mg-docusate sodium 50 mg tablet 1 tab PO BID PRN #60 tab 08/02/17 trazodone 100 mg tablet 200 mg PO QHS PRN #60 tab 08/29/17 fluticasone-salmeterol 115 mcg-21 mcg/actuation HFA aerosol inhaler 2 puff INHALATION BID #1 inh 09/05/17 albuterol sulfate 2.5 mg/3 mL (0.083 %) solution for nebulization 2.5 mg INHALATION Q4H PRN #180 vial 11/09/17 Prednisone [Deltasone] 40 mg PO DAILY #10 tab 11/19/17 Duloxetine Hcl [Cymbalta] 60 mg PO DAILY 11/25/17 Pregabalin [Lyrica] 50 mg PO TID 11/25/17 Sucralfate [Carafate] 1 g PO TID 11/25/17 Primary Care Physician: Janel Taylor MD [Primary Care Provider] - Please follow up with your Primary Care Physician in: as directed Please Follow Up With: Serafin Deleon MD When: as directed Additional Instructions: Patient advised not to leave, she left AMA. Disposition: Against Medical Advice Minutes spent on discharge:: 35 Patient Condition:: Stable Medical Necessity - Tobacco Use Smoking Status: Heavy Smoker (>10/day) Meaningful Use Info Meaningful Use Diagnoses (Choose all that apply): None applicable <Paintsil,Drumore - Last Filed: 11/26/17 15:07> Discharge Date and Diagnosis - Primary Discharge Diagnosis Chest pain, concerning for angina - Secondary Discharge Diagnosis Chronic Problems (Last Reviewed 11/10/17 @ 09:30 by LEANN CooperC) Iron deficiency (Chronic) Stage 2 moderate COPD by GOLD classification (Chronic) HTN (hypertension) (Chronic) Epigastric pain (Chronic) Chronic neutrophilia (Chronic) Iron deficiency anemia following bariatric surgery (Chronic) Osteoarthritis (Chronic) Morbid obesity (Chronic) Neutrophilic leukocytosis (Chronic) Type 2 diabetes mellitus (Chronic) Schizophrenia (Chronic) Hip osteoarthritis (Chronic) with chronic pain-right hip Iron deficiency anemia due to dietary causes (Chronic) exact cause of iron def anemia unknown-felt likely secondary to past history gastric bypass- although chronic blood loss etiology a possibility (has never had colonoscopy)-further workup including hemoccult stool is recommended Microcytic anemia (Chronic) Morbid obesity with BMI of 45.0-49.9, adult (Chronic) Pulmonary hypertension (Chronic) Chronic narcotic use (Chronic) Depression (Chronic) Gastroesophageal reflux disease (Chronic) Parathyroid abnormality (Chronic) History of PTCA (Chronic) Vitamin D deficiency (Chronic) Hyperlipidemia (Chronic) History of peptic ulcer disease (Chronic) Thyroid nodule (Chronic) deemed to be benign. Benign essential hypertension (Chronic) CAD (coronary artery disease) (Chronic) RACHEL (obstructive sleep apnea) (Chronic) 17/13 cm of water Spinal stenosis of lumbar region at multiple levels (Chronic) Tobacco abuse (Chronic) COPD (chronic obstructive pulmonary disease) with emphysema (Chronic) Hospital Course and Treatment Summary of Care Provided: The patient is a 52 year old F past medical history of CAD, status post stents, type II DM, hypertension, hyperlipidemia, morbid obesity, nicotine abuse, COPD who was admitted with crushing pain worse with exertion. Patient had a negative admitting EKG. Troponins have been negative during her stay. Chest x-ray was negative. Vitals have remained stable. Patient was advised to undergo a stress test on Monday. But she says she has to leave because her cat is all alone. She initially agreed to stay and have her sister go check on her cat but later on decided to sign out AGAINST MEDICAL ADVICE. Medical Necessity - Tobacco Use Smoking Status: Current every day smoker Code Visit OBSV E&M: 49646 Observation care discharge
--- NOTE | 2017-11-26 13:26 | DS.PCM_ITS ---
<Glenn Guerra - Last Filed: 11/26/17 13:18> Discharge Date and Diagnosis Date of Admission: 11/25/17 Date of Discharge: 11/26/17 - Primary Discharge Diagnosis Chest pain Hx CAD, [place], stents HTN DMt2 HLD RACHEL Tobacco abuse COPD - Secondary Discharge Diagnosis Chronic Problems (Last Reviewed 11/10/17 @ 09:30 by Rosanna Hampton NP-C) Iron deficiency (Chronic) Stage 2 moderate COPD by GOLD classification (Chronic) HTN (hypertension) (Chronic) Epigastric pain (Chronic) Chronic neutrophilia (Chronic) Iron deficiency anemia following bariatric surgery (Chronic) Osteoarthritis (Chronic) Morbid obesity (Chronic) Neutrophilic leukocytosis (Chronic) Type 2 diabetes mellitus (Chronic) Schizophrenia (Chronic) Hip osteoarthritis (Chronic) with chronic pain-right hip Iron deficiency anemia due to dietary causes (Chronic) exact cause of iron def anemia unknown-felt likely secondary to past history gastric bypass- although chronic blood loss etiology a possibility (has never had colonoscopy)- further workup including hemoccult stool is recommended Microcytic anemia (Chronic) Morbid obesity with BMI of 45.0-49.9, adult (Chronic) Pulmonary hypertension (Chronic) Chronic narcotic use (Chronic) Depression (Chronic) Gastroesophageal reflux disease (Chronic) Parathyroid abnormality (Chronic) History of PTCA (Chronic) Vitamin D deficiency (Chronic) Hyperlipidemia (Chronic) History of peptic ulcer disease (Chronic) Thyroid nodule (Chronic) deemed to be benign. Benign essential hypertension (Chronic) CAD (coronary artery disease) (Chronic) RACHEL (obstructive sleep apnea) (Chronic) 17/13 cm of water Spinal stenosis of lumbar region at multiple levels (Chronic) Tobacco abuse (Chronic) COPD (chronic obstructive pulmonary disease) with emphysema (Chronic) Hospital Course and Treatment Imaging Results: RAD/Chest 1 View (Portable) IMPRESSION: Stable appearance of the chest with no new or acute pathology. Operations: None, total hip replacement Procedures: None Summary of Care Provided: Physical exam on day of discharge: General: Resting comfortably NAD Psych: A/Ox3 normal affect HEENT: PEARRLA AT NC Neck: Supple NT CV: RRR no m/t/r/g/h Resp: CTA Abd: [id number] Soft NT no guarding or rigidity Ext: DP2+= no edema Skin: W/D normal turgor Lymph/Heme: No active bleeding or adenopathy Neuro: CN2-12 intact Hospital course: The patient is a 52 year old F with a hx of CAD, prior stents, prior [place], DMt2, HTN, HLD, nicotine abuse, COPD who presented to the ER with crushing chest pain with exertion. She came to the ER by squad and had negative EKG, negative Troponin, negative CXR. She was admitted for chest pain workup. The following day she had no further chest pain. She was ambulating around the unit without dificulty. No events on tele. Negative troponin x3. The patient did not want to stay and get a stress test on Monday. I advised her that with her type of chest pain and severe cardiac hx and multiple risk factors I could not advise that she be discharged. She decided to leave AMA. She plans to see her own pin cleaner Dr. Conway. This patient was seen by Glenn Guerra PA-C under the supervision of Doctor Catrachito. [] Discharge Diet: Low fat/ Low Cholesterol, 1800 Calorie Control Diet, 2000 mg Sodium Diet Discharge Activity: Return to Normal Activity Home Medications: Medications to take at Discharge Atorvastatin Calcium [Lipitor] 80 mg PO QHS 08/22/15 Clopidogrel Bisulfate [Plavix] 75 mg PO DAILY 08/22/15 Metoprolol(XL)Succ [Toprol Xl (Beta Trino)] 25 mg PO DAILY 08/22/15 Risperidone [Risperdal] 4 mg PO QHS 04/28/16 Nitroglycerin 0.4 mg SL PRN PRN 11/08/16 Duloxetine Hcl [Cymbalta] 120 mg PO DAILY 01/16/17 Buspirone HCl 10 mg PO TID 02/16/17 amlodipine 10 mg tablet 10 mg PO DAILY tab 05/02/17 lisinopril 20 mg tablet 20 mg PO QHS #30 tab 05/02/17 albuterol sulfate HFA 90 mcg/actuation aerosol inhaler 2 puff INHALATION Q4H PRN PRN #18 g 05/31/17 Omeprazole 40 mg PO BID 06/11/17 potassium chloride ER 10 mEq tablet,extended release(part/cryst) 10 meq PO DAILY #60 tab 06/16/17 tiotropium bromide 2.5 mcg/actuation mist for inhalation 2 puff INHALATION DAILY #4 g 08/01/17 sennosides 8.6 mg-docusate sodium 50 mg tablet 1 tab PO BID PRN #60 tab trazodone 100 mg tablet 200 mg PO QHS PRN #60 tab 08/29/17 fluticasone-salmeterol 115 mcg-21 mcg/actuation HFA aerosol inhaler 2 puff INHALATION BID #1 inh 09/05/17 albuterol sulfate 2.5 mg/3 mL (0.083 %) solution for nebulization 2.5 mg INHALATION Q4H PRN #180 vial 11/09/17 Prednisone [Deltasone] 40 mg PO DAILY #10 tab 11/19/17 Duloxetine Hcl [Cymbalta] 60 mg PO DAILY 11/25/17 Pregabalin [Lyrica] 50 mg PO TID 11/25/17 Sucralfate [Carafate] 1 g PO TID 11/25/17 Primary Care Physician: Janel Taylor MD [Primary Care Provider] - Please follow up with your Primary Care Physician in: as directed Please Follow Up With: Serafin Deleon MD When: as directed Additional Instructions: Patient advised not to leave, she left AMA. Disposition: Against Medical Advice Minutes spent on discharge:: 35 Patient Condition:: Stable Medical Necessity - Tobacco Use Smoking Status: Heavy Smoker (>10/day) Meaningful Use Info Meaningful Use Diagnoses (Choose all that apply): None applicable <Paintsil,Williamson - Last Filed: 11/26/17 15:07> Discharge Date and Diagnosis - Primary Discharge Diagnosis Chest pain, concerning for angina - Secondary Discharge Diagnosis Chronic Problems (Last Reviewed 11/10/17 @ 09:30 by LEANN CooperC) Iron deficiency (Chronic) Stage 2 moderate COPD by GOLD classification (Chronic) HTN (hypertension) (Chronic) Epigastric pain (Chronic) Chronic neutrophilia (Chronic) Iron deficiency anemia following bariatric surgery (Chronic) Osteoarthritis (Chronic) Morbid obesity (Chronic) Neutrophilic leukocytosis (Chronic) Type 2 diabetes mellitus (Chronic) Schizophrenia (Chronic) Hip osteoarthritis (Chronic) with chronic pain-right hip Iron deficiency anemia due to dietary causes (Chronic) exact cause of iron def anemia unknown-felt likely secondary to past history gastric bypass- although chronic blood loss etiology a possibility (has never had colonoscopy)- further workup including hemoccult stool is recommended Microcytic anemia (Chronic) Morbid obesity with BMI of 45.0-49.9, adult (Chronic) Pulmonary hypertension (Chronic) Chronic narcotic use (Chronic) Depression (Chronic) Gastroesophageal reflux disease (Chronic) Parathyroid abnormality (Chronic) History of PTCA (Chronic) Vitamin D deficiency (Chronic) Hyperlipidemia (Chronic) History of peptic ulcer disease (Chronic) Thyroid nodule (Chronic) deemed to be benign. Benign essential hypertension (Chronic) CAD (coronary artery disease) (Chronic) RACHEL (obstructive sleep apnea) (Chronic) 17/13 cm of water Spinal stenosis of lumbar region at multiple levels (Chronic) Tobacco abuse (Chronic) COPD (chronic obstructive pulmonary disease) with emphysema (Chronic) Hospital Course and Treatment Summary of Care Provided: The patient is a 52 year old F past medical history of CAD, status post stents, type II DM, hypertension, hyperlipidemia, morbid obesity, nicotine abuse, COPD who was admitted with crushing pain worse with exertion. Patient had a negative admitting EKG. Troponins have been negative during her stay. Chest x- ray was negative. Vitals have remained stable. Patient was advised to undergo a stress test on Monday. But she says she has to leave because her cat is all alone. She initially agreed to stay and have her sister go check on her cat but later on decided to sign out AGAINST MEDICAL ADVICE. Medical Necessity - Tobacco Use Smoking Status: Current every day smoker Code Visit OBSV E&M: 39632 Observation care discharge
== END 2017-11-26 12:55 | disposition left against medical advice (07) ==
LOC: ED 19:28 → PCU 20:53
PROVIDERS: Family Medicine; Admitting Provider Internal Medicine; Emergency Provider Emergency Medicine; Family Provider Family Medicine; PCP Family Medicine; Visit Provider Internal Medicine
DX: R07.89 Other chest pain (principal); I10 Essential (primary) hypertension; E66.01 Morbid (severe) obesity due to excess calories; E11.9 Type 2 diabetes mellitus without complications; J44.9 Chronic obstructive pulmonary disease, unspecified; I25.10 Atherosclerotic heart disease of native coronary artery without angina pectoris; G47.33 Obstructive sleep apnea (adult) (pediatric); Z23 Encounter for immunization; F32.9 Major depressive disorder, single episode, unspecified; D50.8 Other iron deficiency anemias; M19.90 Unspecified osteoarthritis, unspecified site; G89.29 Other chronic pain; K21.9 Gastro-esophageal reflux disease without esophagitis; E55.9 Vitamin D deficiency, unspecified; I27.20 Pulmonary hypertension, unspecified; Z87.11 Personal history of peptic ulcer disease; F20.9 Schizophrenia, unspecified; Z68.41 Body mass index [BMI] 40.0-44.9, adult; Z71.3 Dietary counseling and surveillance; Z79.899 Other long term (current) drug therapy; Z79.02 Long term (current) use of antithrombotics/antiplatelets; Z79.52 Long term (current) use of systemic steroids; Z98.84 Bariatric surgery status; I25.2 Old myocardial infarction; Z95.5 Presence of coronary angioplasty implant and graft; Z72.0 Tobacco use
CPT/HCPCS: 36415; 71045; 80048; 83735; 84484; 85025; 93005; 94640; 96360; 96361; 96372; 99218; 99285; G0008; J7030; 90686; A4216; G0378

== ENCOUNTER → 2017-12-19 11:45 | Outpatient (CLI) | payer MEDICARE, SELFPAY ==
[2017-12-19 17:21] LABS: Absolute Lymphocyte Count 1.75 X10^3/ul (0.83-4.51); Absolute Neutrophil Count 5.7 X10^3/uL (2.0-7.7); Basophil# 0.09 X10^3/uL; Eosinophil# 0.14 X10^3/uL; Eosinophils% 1.6 % (0-5); Hemoglobin 13.2 g/dl (12.0-15.0); Lymphocyte # 1.75 X10^3/ul (4.0); Lymphocyte % 20.2 % (19-41); Mean Corp Hgb Conc 32.2 g/gl (32-36); Mean Corpuscular Hgb 28.8 pg (27.0-32.0); Mean Corpuscular Volume 89.3 fL (81-99); Mean Platelet Vol. 9.9 fl (6.2-12.0); Monocyte# 0.92 X10^3/uL; Monocyte% 10.6 % (0-10); Neutrophil # 5.74 X10^3/uL (2.7-7.7); Neutrophil % 66.4 % (47-70); Platelet Count 303 K/mm3 (150-450); RBC Distribution Width CV 15.5 % (11.6-14.6); RBC Distribution Width SD 50.4 fl (35.1-43.9); Red Blood Count 4.59 M/mm3 (4.2-5.4); White Blood Count 8.7 K/mm3 (4.4-11.0)
[2017-12-19 17:22] LABS: POSITIVE COUNT NO; POSITIVE DIFFERENTIAL NO; POSITIVE MORPHOLOGY NO
[2017-12-19 17:38] LABS: Vitamin B12 419 pg/mL (211-911)
[2017-12-19 17:48] LABS: ALB/GLOB Ratio 0.9 RATIO (0.9-2.4); AST(SGOT) 17 U/L (15-37); Alanine Aminotransfer ALT/SGPT 27 U/L (13-56); Albumin, Serum 3.4 g/dL (3.2-5.0); Alkaline Phosphatase 114 U/L (45-117); Anion Gap 8 (5-15); BUN 6 mg/dL (7-18); BUN/Creat Ratio 7.2 RATIO (10-20); Calcium,Total 9.7 mg/dL (8.5-10.1); Chloride 102 mmol/L (98-107); Creatinine, Serum 0.83 mg/dL (0.55-1.02); EST Glomerular Filtration Rate 77 mL/min (>60); Est Glom Filt Rate - Afr Amer 93 mL/min (>60); Ferritin 17 ng/mL (8-252); Globulin 3.7 g/dL (2.2-4.2); Glucose 109 mg/dL (74-106); Iron 33 ug/dL (50-170); Iron Binding Capacity,Total 379 ug/dL (250-450); PERCENT IRON SATURATION 8.7 % (15.0-55.0); Potassium 3.7 mmol/L (3.5-5.1); Protein, Total 7.1 g/dL (6.4-8.2); Sodium Level 133 mmol/L (136-145)
== END ==
LOC: BFHLAB 11:46
PROVIDERS: Family Provider Family Medicine; PCP Family Medicine; Visit Provider Internal Medicine Medical Oncology
DX: D50.8 Other iron deficiency anemias (principal)
CPT/HCPCS: 36415; 80053; 82607; 82728; 82746; 83540; 83550; 85025

== ENCOUNTER → 2018-01-15 13:22 | Outpatient (CLI) | payer MEDICARE, SELFPAY ==
[2018-01-15 13:57] LABS: Absolute Lymphocyte Count 1.39 X10^3/ul (0.83-4.51); Absolute Neutrophil Count 13.9 X10^3/uL (2.0-7.7); Basophil# 0.03 X10^3/uL; Basophil% 0.2 % (0-1); Eosinophil# 0.11 X10^3/uL; Eosinophils% 0.7 % (0-5); Hematocrit 41.1 % (37-47); Lymphocyte # 1.39 X10^3/ul (4.0); Lymphocyte % 8.2 % (19-41); Mean Corp Hgb Conc 31.6 g/gl (32-36); Mean Corpuscular Hgb 27.7 pg (27.0-32.0); Mean Corpuscular Volume 87.4 fL (81-99); Mean Platelet Vol. 9.6 fl (6.2-12.0); Monocyte# 1.39 X10^3/uL; Monocyte% 8.2 % (0-10); Neutrophil # 13.94 X10^3/uL (2.7-7.7); Neutrophil % 82.5 % (47-70); POSITIVE COUNT NO; POSITIVE DIFFERENTIAL NO; POSITIVE MORPHOLOGY NO; Platelet Count 320 K/mm3 (150-450); RBC Distribution Width CV 15.3 % (11.6-14.6); RBC Distribution Width SD 48.9 fl (35.1-43.9); White Blood Count 16.9 K/mm3 (4.4-11.0)
[2018-01-19 00:32] LABS: Aspirgillus flavus Negative (Neg:<1:1); Aspirgillus fumigatus Negative (Neg:<1:1); Aspirgillus niger Negative (Neg:<1:1)
[2018-01-21 09:12] LABS: Immunoglobulin E 56 IU/mL (0-100)
== END ==
LOC: PAVLAB 13:24
PROVIDERS: Family Provider Family Medicine; PCP Family Medicine; Referring Provider Nurse Practitioner Acute Care; Visit Provider Nurse Practitioner Acute Care
DX: E61.1 Iron deficiency (principal); R05 Cough
CPT/HCPCS: 36415; 82785; 85025; 86606

== ENCOUNTER 2018-03-08 14:17 | Inpatient (IN) | payer MEDICARE, SELFPAY ==
[2018-02-12 14:39] VITALS: BMI 40.0
[2018-03-08] VITALS (12 sets, daily range): BP systolic 109–135; BP diastolic 56–79; PULSE 78–89; RESP 18–26; TEMP 36.7–37.2; O2SAT 92–97; BMI 40.4; BMI 39.6; BMI 39.7
[2018-03-08] MEDS: Ipratropium/Albuterol Sulfate 3 ML AMPUL.NEB INHALATION ×2 (14:54→19:54)
[2018-03-08] MEDS: Albuterol 2.5 MG/3 ML VIAL.NEB. INHALATION ×2 (14:54→14:55)
[2018-03-08 14:58] LABS: Absolute Lymphocyte Count 0.84 X10^3/ul (0.83-4.51); Absolute Neutrophil Count 14.6 X10^3/uL (2.0-7.7); Basophil# 0.05 X10^3/uL; Basophil% 0.3 % (0-1); Eosinophil# 0.05 X10^3/uL; Eosinophils% 0.3 % (0-5); Hematocrit 37.4 % (37-47); Hemoglobin 12.2 g/dl (12.0-15.0); Lymphocyte # 0.84 X10^3/ul (4.0); Lymphocyte % 4.8 % (19-41); Mean Corp Hgb Conc 32.6 g/gl (32-36); Mean Corpuscular Hgb 26.6 pg (27.0-32.0); Mean Corpuscular Volume 81.5 fL (81-99); Mean Platelet Vol. 9.9 fl (6.2-12.0); Monocyte# 1.96 X10^3/uL; Monocyte% 11.2 % (0-10); Neutrophil % 83.2 % (47-70); Platelet Count 275 K/mm3 (150-450); RBC Distribution Width SD 51.5 fl (35.1-43.9); Red Blood Count 4.59 M/mm3 (4.2-5.4); White Blood Count 17.5 K/mm3 (4.4-11.0)
[2018-03-08] MEDS: predniSONE 20 MG Tablet 60 MG PO (14:58)
[2018-03-08 14:59] LABS: Differential Indicated SCAN CRITERIA MET; POSITIVE COUNT NO; POSITIVE DIFFERENTIAL YES; POSITIVE MORPHOLOGY NO
[2018-03-08 15:03] LABS: Anion Gap 11 (5-15); BUN 5 mg/dL (7-18); BUN/Creat Ratio 5.7 RATIO (10-20); Calcium,Total 9.7 mg/dL (8.5-10.1); Chloride 105 mmol/L (98-107); Creatinine, Serum 0.87 mg/dL (0.55-1.02); EST Glomerular Filtration Rate 72 mL/min (>60); Est Glom Filt Rate - Afr Amer 87 mL/min (>60); Estimated Creatinine Clearance 62.57 ml/min; Glucose 127 mg/dL (74-106); Potassium 3.4 mmol/L (3.5-5.1); Sodium Level 139 mmol/L (136-145)
--- NOTE | 2018-03-08 15:22 | RAD_ITS ---
STUDY: X-RAY CHEST REASON FOR EXAM: Female, 52 years old. Cough and dyspnea. TECHNIQUE: PA and lateral views of the chest. COMPARISON: Comparison is made with prior study dated November 25, 2017. FINDINGS: EKG electrodes are seen. There now is evidence of increased markings in the lingular segment of the left upper lobe suggestive of an early infiltrate. There is no demonstrated pleural abnormality. Normal size heart. Normal mediastinum and alden. Normal visualized pulmonary arteries. Normal visualized aortic arch and descending thoracic aorta. There are degenerative changes of the visualized thoracic spine. Normal visualized ribs, clavicles, and shoulders. There is no demonstrated abnormality of the visualized soft tissue structures of the upper abdomen. RAD/Chest PA and Lateral IMPRESSION: Increased markings in the lingular segment of the left upper lobe suggestive of lingular infiltrate. Electronically Signed: Manuelito Silva MD at 15:40 EST Tel [phone], Service support ,
[2018-03-08 15:40] LABS: Platelet Estimate ADEQUATE (ADEQ); Red Cell Morphology NORM C+C NORMAL (NORM C&C)
[2018-03-08] MEDS: Doxycycline 100 MG CAPSULE PO (15:45)
--- NOTE | 2018-03-08 16:07 | ED.DCSUM_ITS ---
- ER Visit Summary Date of Service: 03/08/18 Chief Complaint: Shortness of breath, wheezing and nonproductive cough History of Present Illness: The patient is a 52 F who is not O2 dependent COPD patient presents because of nonproductive cough, increasing shortness of breath and dyspnea on exertion. She states she normally is able to walk 50 feet before experiencing shortness of breath. She now states she can walk 5 maybe 10 feet. She is on 3 L by nasal cannula. She denies fever, chills night sweats. She denies ocular, visual auditory symptoms. She does report rhinorrhea and sore throat as well as hoarse voice. She states she did receive Pneumovax and flu shots. She does report chest pain with cough. She denies leg pain, swelling discoloration. She denies history of PE or DVT. She denies orthopnea or PND. She denies GI or symptoms. She denies myalgias or arthralgias. She denies h eadache, paresthesia, anesthesia motors. She complains of generalized weakness. She does have history to hives/urticaria to multiple antibiotics. Past history of coronary disease, GERD, type 2 diabetes, hypertension, iron deficiency anemia and O2 dependent COPD patient. She also has history of schizophrenia. She is status post angioplasty with stent placement as well. Physical Examination: Vital signs noted. She is not hypoxic on her 3 L of oxygen. She is tachypnic. Head is atraumatic normocephalic. Pupils are equal round reactive. Extraocular muscles are intact. TMs are pearly white with landmarks noted. Nares patent with minimal clear drainage. Posterior pharynx without erythema or exudate. Uvula is midline. There is no dysphonia or dysphasia. Trachea is midline. There is no stridor with auscultation of the neck. Heart is regular. Lungs reveal expiratory wheezing throughout with diminished breath sounds. There is also rales on inspiration noted. Abdomen is soft nontender bowel sounds are present normal. Lower extremity exam reveals no discoloration, asymmetry, leg vein distention, palpable coarseness on the distribution of deep venous system. Neuro exam is nonfocal. Test Results: Two-view chest x-ray interpreted by me as chronic changes no acute process. White count is elevated at 17.5 thousand with 83 segs no bands. Basic metabolic panel is marked for glucose of 127 potassium 3.4. Emergency Department Course and Treatment: Patient has either exacerbation of COPD or pneumonia. Chest x-ray appropriate blood work was obtained. She was treated with DuoNeb and 3 albuterol treatments. She also received 60 mg of prednisone. Once her x-ray was reviewed by me and interpreted as negative for pneumonia she received oral doxycycline. She was evaluated shortly after returning from the radiology suite. She was on oxygen during transport. She was hypoxic and breathing 30 times a minute with minimal activity. She did improve with rest but is still dyspneic with rapid respiratory rate. Treatment Plan: In spite of optimal treatment in the ER patient remains dyspneic and desaturates with minimal activity. Hospitalist has been paged for admission Disposition: Medical surgical floor Impression: 1. Exacerbation of COPD with bronchospasm 2. Exacerbation of chronic bronchitis 3. History of type 2 diabetes 4. History of coronary disease 5. History of hypertension This note was generated with [employer] dictation software. It may contain incorrect words, spelling, and punctuation that were not noted in review of the chart prior to signing ED Disposition - Plan for ED Patient: Chief Complaint: Shortness of Breath Referrals: Janel Taylor MD [Primary Care Provider] -
--- NOTE | 2018-03-08 16:10 | PCM.HP.STD ---
Problem List (1) Acute and chronic respiratory failure with hypoxia Status: Acute (2) COPD exacerbation Status: Acute (3) Pneumonia Status: Acute Qualifiers: Pneumonia type: due to unspecified organism Laterality: left (4) Sepsis Status: Acute Qualifiers: Sepsis type: sepsis due to unspecified organism Qualified Code(s): A41.9 - Sepsis, unspecified organism (5) Type 2 diabetes mellitus Status: Chronic Qualifiers: Diabetes mellitus care home insulin use: without care home use Diabetes mellitus complication status: with unspecified complications Qualified Code(s): E11.8 - Type 2 diabetes mellitus with unspecified complications (6) Schizophrenia Status: Chronic Qualifiers: Schizophrenia type: unspecified Qualified Code(s): F20.9 - Schizophrenia, unspecified (7) Microcytic anemia Status: Chronic (8) Morbid obesity with BMI of 45.0-49.9, adult Status: Chronic (9) Pulmonary hypertension Status: Chronic (10) Vitamin D deficiency Status: Chronic (11) Hyperlipidemia Status: Chronic Qualifiers: Hyperlipidemia type: unspecified Qualified Code(s): E78.5 - Hyperlipidemia, unspecified (12) History of peptic ulcer disease Status: Chronic (13) Benign essential hypertension Status: Chronic (14) CAD (coronary artery disease) Status: Chronic Qualifiers: Coronary Disease-Associated Artery/Lesion type: unspecified vessel or lesion type [place] vs. transplanted heart: unspecified whether [place] or transplanted heart Associated angina: angina presence unspecified Qualified Code(s): I25.10 - Atherosclerotic heart disease of [place] coronary artery without angina pectoris (15) RACHEL (obstructive sleep apnea) Status: Chronic Comment: 17/13 cm of water (16) Spinal stenosis of lumbar region at multiple levels Status: Chronic (17) Tobacco abuse Status: Chronic (18) COPD (chronic obstructive pulmonary disease) with emphysema Status: Chronic Qualifiers: Emphysema type: unspecified Qualified Code(s): J43.9 - Emphysema, unspecified History of Present Illness Date of Admission: 03/08/18 Chief Complaint: Cough, dysnea The patient is a 52 y/o F w/ PMHx: Chronic Hypoxic Respiratory Failure (3L NC) w/ Chronic COPD, Morbid Obesity, Chronic Leukocytosis, Chronic Fe Deficiency Anemia, CAD, History of Gastric Bypass, Depression and Anxiety/Schizophrenia, GERD w/ history of peptic ulcers, Diabetes mellitus type II who presents to the [facility] ED on 03/08/17 with ongoing nonproductive cough, arthralgias, myalgias, dyspnea with wheezing times 3 days. He notes that her dyspnea markedly worsens with any exertional effort. Workup in the ED included T 98.9, heart rate 85 however has been intermittently tachycardic in the ED on telemetry, respiratory rate 22, 97% on 3 L nasal cannula however did desaturate into the 60s and 70s with exertion while in chest x-ray, CBC with WBC 17.5, hemoglobin 12.2, platelet 275 with left shift, BMP with potassium 3.4, glucose 127, chest x-ray with questionable left upper lobe infiltrate, lingular. ED patient administered prednisone oral therapy, doxycycline, DuoNeb and albuterol therapy. Note when patient was having chest x-ray obtained and required minimal movement to obtain the imaging study she very rapidly desaturated into the 60s and 70s but did recoup with rest very quickly. Past Medical History Past Medical History (Chronic Problems): Chronic Problems (Last Reviewed 02/12/18 @ 14:33 by Aria Patel) Iron deficiency (Chronic) Stage 2 moderate COPD by GOLD classification (Chronic) HTN (hypertension) (Chronic) Epigastric pain (Chronic) Chronic neutrophilia (Chronic) Iron deficiency anemia following bariatric surgery (Chronic) Osteoarthritis (Chronic) Morbid obesity (Chronic) Neutrophilic leukocytosis (Chronic) Type 2 diabetes mellitus (Chronic) Schizophrenia (Chronic) Hip osteoarthritis (Chronic) with chronic pain-right hip Iron deficiency anemia due to dietary causes (Chronic) exact cause of iron def anemia unknown-felt likely secondary to past history gastric bypass- although chronic blood loss etiology a possibility (has never had colonoscopy)-further workup including hemoccult stool is recommended Microcytic anemia (Chronic) Morbid obesity with BMI of 45.0-49.9, adult (Chronic) Pulmonary hypertension (Chronic) Chronic narcotic use (Chronic) Depression (Chronic) Gastroesophageal reflux disease (Chronic) Parathyroid abnormality (Chronic) History of PTCA (Chronic) Vitamin D deficiency (Chronic) Hyperlipidemia (Chronic) History of peptic ulcer disease (Chronic) Thyroid nodule (Chronic) deemed to be benign. Benign essential hypertension (Chronic) CAD (coronary artery disease) (Chronic) RACHEL (obstructive sleep apnea) (Chronic) 17/13 cm of water Spinal stenosis of lumbar region at multiple levels (Chronic) Tobacco abuse (Chronic) COPD (chronic obstructive pulmonary disease) with emphysema (Chronic) Medical History: Medical History (Last Reviewed 02/12/18 @ 14:33 by Aria Patel) HTN (hypertension) (Chronic) I10 Peptic ulcer (Acute) K27.9 Bloody stool (Acute) K92.1 Acute respiratory failure (Acute) J96.00 CAP (community acquired pneumonia) (Acute) J18.9 Epigastric pain (Chronic) R10.13 Chronic neutrophilia (Chronic) D72.828 Iron deficiency anemia following bariatric surgery (Chronic) D50.9 Osteoarthritis (Chronic) M19.90 Chest pain (Acute) R07.9 Morbid obesity (Chronic) E66.01 Neutrophilic leukocytosis (Chronic) D72.9 Viral gastroenteritis (Acute) A08.4 Type 2 diabetes mellitus (Chronic) E11.9 Schizophrenia (Chronic) F20.9 Hip osteoarthritis (Chronic) M16.9 with chronic pain-right hip Iron deficiency anemia due to dietary causes (Chronic) D50.8 exact cause of iron def anemia unknown-felt likely secondary to past history gastric bypass- although chronic blood loss etiology a possibility (has never had colonoscopy)-further workup including hemoccult stool is recommended Microcytic anemia (Chronic) D50.9 Morbid obesity with BMI of 45.0-49.9, adult (Chronic) E66.01, Z68.42 Pulmonary hypertension (Chronic) I27.2 Chronic narcotic use (Chronic) F11.90 Depression (Chronic) F32.9 Gastroesophageal reflux disease (Chronic) K21.9 Parathyroid abnormality (Chronic) E21.5 Vitamin D deficiency (Chronic) E55.9 Hyperlipidemia (Chronic) E78.5 History of peptic ulcer disease (Chronic) Z87.11 Thyroid nodule (Chronic) E04.1 deemed to be benign. Benign essential hypertension (Chronic) I10 CAD (coronary artery disease) (Chronic) I25.10 RACHEL (obstructive sleep apnea) (Chronic) G47.33 17/13 cm of water Spinal stenosis of lumbar region at multiple levels (Chronic) M48.06 Tobacco abuse (Chronic) Z72.0 COPD (chronic obstructive pulmonary disease) with emphysema (Chronic) J43.9 Allergies amoxicillin Allergy (Verified 02/12/18 14:39) Itching clarithromycin [From Biaxin] Allergy (Verified 02/12/18 14:39) Unknown erythromycin base Allergy (Verified 02/12/18 14:39) Unknown methadone Allergy (Verified 02/12/18 14:39) Unknown metolazone Allergy (Verified 02/12/18 14:39) Unknown Penicillins Allergy (Verified 02/12/18 14:39) Hives Sulfa (Sulfonamide Antibiotics) Allergy (Verified 02/12/18 14:39) Hives ibuprofen Adverse Reaction (Verified 02/12/18 14:39) Other morphine Adverse Reaction (Verified 02/12/18 14:39) Other Home Medications: Ambulatory Orders Medication Instructions Recorded Atorvastatin Calcium [Lipitor] 80 mg PO QHS 08/22/15 Clopidogrel Bisulfate [Plavix] 75 mg PO DAILY 08/22/15 Metoprolol(XL)Succ [Toprol Xl 25 mg PO DAILY 08/22/15 (Beta Trino)] Risperidone [Risperdal] 4 mg PO QHS 04/28/16 Nitroglycerin 0.4 mg SL PRN PRN 11/08/16 Duloxetine Hcl [Cymbalta] 120 mg PO DAILY 01/16/17 Buspirone HCl 10 mg PO TID 02/16/17 amlodipine 10 mg tablet 10 mg PO DAILY tab 05/02/17 lisinopril 20 mg tablet 20 mg PO QHS #30 tab 05/02/17 Omeprazole 40 mg PO BID 06/11/17 potassium chloride ER 10 mEq 10 meq PO DAILY #60 tab 06/16/17 tablet,extended release(part/cryst) tiotropium bromide 2.5 2 puff INHALATION DAILY #4 g 08/01/17 mcg/actuation mist for inhalation sennosides 8.6 mg-docusate sodium 1 tab PO BID PRN #60 tab 08/02/17 50 mg tablet trazodone 100 mg tablet 200 mg PO QHS PRN #60 tab 08/29/17 albuterol sulfate 2.5 mg/3 mL 2.5 mg INHALATION Q4H PRN #180 vial 11/09/17 (0.083 %) solution for nebulization Duloxetine Hcl [Cymbalta] 60 mg PO DAILY 11/25/17 Pregabalin [Lyrica] 50 mg PO TID 11/25/17 Sucralfate [Carafate] 1 g PO 4X/DAY 11/25/17 albuterol sulfate HFA 90 2 puff INHALATION Q4H PRN PRN #18 g 11/29/17 mcg/actuation aerosol inhaler fluticasone-salmeterol 230 mcg-21 2 puff INHALATION BID #12 g 01/15/18 mcg/actuation HFA aerosol inhaler montelukast 10 mg tablet 10 mg PO QPM #30 tab 01/15/18 fluticasone 50 mcg/actuation nasal 1 spray INTRANASAL DAILY #18.2 g 01/31/18 spray,suspension Fexofenadine HCl [Tiarra Allergy] 1 tab PO DAILY 02/12/18 Fluticasone 0.05% [Flonase Nasal 2 spray NASAL DAILY 02/12/18 [place]] guaifenesin ER 1,200 mg tablet, 1,200 mg PO Q12H #30 tab 03/08/18 extended release 12 hr Surgical History: Surgical History (Last Reviewed 02/12/18 @ 14:38 by Aria Patel) History of PTCA (Chronic) Z98.61 History of appendectomy Z98.890, Z90.49 History of carpal tunnel surgery of left wrist Z98.890 History of cholecystectomy Z98.890, Z90.49 History of gastric bypass Z98.84 History of tonsillectomy Z98.890, Z90.89 history of carpal tunnel release left wrist 2018 history of right hip surgery Surgical History: appendectomy, cholecystectomy, tonsillectomy, - - Right lower extremity surgery x3 as well as bone grafting, appendectomy, cholecystectomy, gastric bypass, hernia repairs, hip replacement, tonsillectomy. 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 SERVICES SPECIALIST history, - Lives: Alone Smoking Status: Current every day smoker Tobacco Use: Cigarettes Alcohol: None Drugs: None - *Family History Sibling Family History: Family History (Last Reviewed 02/12/18 @ 14:38 by Aria Patel) Mother Heart disease Cancer Father Hypertension Arthritis Hyperlipemia Grandmother Breast cancer Heart disease Grandfather Heart disease History Items: Hypertension Maternal Family History: Family History (Last Reviewed 02/12/18 @ 14:38 by Aria Patel) Mother Heart disease Cancer Father Hypertension Arthritis Hyperlipemia Grandmother Breast cancer Heart disease Grandfather Heart disease History Items: Cancer, Heart Disease Paternal Family History: Family History (Last Reviewed 02/12/18 @ 14:38 by Aria Patel) Mother Heart disease Cancer Father Hypertension Arthritis Hyperlipemia Grandmother Breast cancer Heart disease Grandfather Heart disease History Items: Hypertension Review of Systems Constitutional: Reports: Anorexia, Malaise, Weakness, Fatigue. Denies: Chills, Fever, Weight Change HEENT: Denies: Head Aches, Sinus Congestion, Sinus Drainage Cardiovascular: Denies: Chest Pain, Palpitations Respiratory: Reports: Cough, Shortness of Breath, Shortness of breath at rest, Shortness of breath upon exertion, Wheezing. Denies: Sputum production Gastrointestinal: Denies: Abdominal Pain, Nausea, Vomiting Genitourinary: Denies: Dysuria Musculoskeletal: Reports: Back Pain. Denies: Joint Pain, Joint Tenderness Skin: Denies: Rash, Wounds Neurological: Denies: Numbness, Tingling, Focal weakness Psychiatric: Reports: Anxiety, Depression. Denies: Homicidal Ideations, Suicidal Ideations Hematologic/ Lymphatic: Reports: Anemia. Denies: Easy Bruising, Easy Bleeding VTE Information - Inpt Only VTE Present on Admission: No VTE Mechan Device Prophylaxis: SCD's VTE Pharm Prophylaxis ordered?: Yes Patient Problems: Active and Suspected Problems (Last Reviewed 02/12/18 @ 14:33 by Aria Patel) Acute and chronic respiratory failure with hypoxia (Acute) COPD exacerbation (Acute) Pneumonia (Acute) Sepsis (Acute) Subjective: Seated upright in the ED bed, hoarse, fatigued appearance. Objective: Physical Examination: General: awake, alert, oriented x 3 and cooperative, seated upright in the ED bed in no apparent distress. Skin: normal color, turgor, no icterus, cyanosis. HEENT: AT/NC, EOMI, PERRLA, dry MM, no carotid bruits or JVD noted. Lungs: Diffusely diminished breath sounds, greater bases, moderate effort, occasional respiratory and expiratory wheeze noted, no rales or rhonchi. Heart: Mildly tachycardiac currently with regular rhythm; no gallop, rub audible. Abdomen: soft, morbidly obese, NTTP, ND, normal BS, no HSM; habitus makes examination difficult. Extremities: no cyanosis, clubbing, or edema. Neurological: patient awake, alert, oriented x 3; cognitive function intact; pupils equally reactive to light and accomodation; cranial nerves II-XII grossly normal, moving all 4 extremities, no focal deficits, strength fairly globally decreased secondary to acute presentation Psychiatric: affect appears fatigued, no acute evidence of depressive or anxiety feelings. - Physical Exam Vital Signs Temp Pulse Resp BP Pulse Ox 98.9 F 85 18 109/79 97 03/08/18 14:18 03/08/18 14:55 03/08/18 14:55 03/08/18 14:18 03/08/18 14:18 Oxygen Flow Rate (L/min) 3 Oxygen Delivery Method Nasal Cannula Weight: 227 lb 15.327 oz Body Mass Index (BMI) 40.4 Laboratory Tests Past 24 Hrs 03/08/18 03/08/18 14:40 14:40 WBC 17.5 H RBC 4.59 Hgb 12.2 Hct 37.4 MCV 81.5 MCH 26.6 L MCHC 32.6 RDW 18.0 H RDW Differential 51.5 H Plt Count 275 MPV 9.9 Immature Gran % (Auto) 0.200 Neut % (Auto) 83.2 H Lymph % (Auto) 4.8 L [place] % (Auto) 11.2 H Eos % (Auto) 0.3 Baso % (Auto) 0.3 Absolute Neuts (auto) 14.6 H Absolute Lymphs (auto) 0.84 Total Counted Not Reportable Differential Comment Diff Path Review May foll Platelet Estimate ADEQUATE RBC Morphology NORM C+C Sodium 139 Potassium 3.4 L Chloride 105 Carbon Dioxide 23.0 Anion Gap 11 BUN 5 L Creatinine 0.87 Estim Creat Clear Calc 62.57 Est GFR (MDRD) Af Amer 87 Est GFR (MDRD) Non-Af 72 BUN/Creatinine Ratio 5.7 L Glucose 127 H Calcium 9.7 Assessment/Plan All Active Problems (Last Reviewed 02/12/18 @ 14:33 by Aria Patel) Tiredness (Acute) Acute and chronic respiratory failure with hypoxia (Acute) COPD exacerbation (Acute) Pneumonia (Acute) Sepsis (Acute) PND (post-nasal drip) (Acute) Peptic ulcer (Acute) Bloody stool (Acute) Acute respiratory failure (Acute) CAP (community acquired pneumonia) (Acute) Chest pain (Acute) Viral gastroenteritis (Acute) Diarrhea (Resolved) Hypokalemia (Resolved) The patient is a 52 y/o F w/ PMHx: Chronic Hypoxic Respiratory Failure (3L NC) w/ Chronic COPD, Morbid Obesity, Chronic Leukocytosis, Chronic Fe Deficiency Anemia, CAD, History of Gastric Bypass, Depression and Anxiety/Schizophrenia, GERD w/ history of peptic ulcers, Diabetes mellitus type II who presents to the [facility] ED on 03/08/17 with ongoing nonproductive cough, arthralgias, myalgias, dyspnea with wheezing times 3 days. (1) Acute Sepsis secondary to Acute on Chronic Hypoxic Respiratory Failure secondary to Acute on Chronic COPD exacerbation and Possible CAP: CXR w/ chronic changes and ? possible lingular infiltrate however from appearance may be lucency from rib/tissue, CBC on admission w/ WBC 17.5 although has had chronic leukocytosis noted. Will admit to [facility] given stable appearing, maintain on oxygen with wean as tolerated to home oxygen supplementation, continue ATC duonebs, PRN albuterol, IV methylprednisolone, HOB, IS parameters, IV Levaquin with pending sputum cultures, urine antigens and respiratory viral panel. (2) Hypokalemia: Admission K+ 3.4, supplementation given, repeat level in AM. (3) Morbid Obesity: Weight loss and lifestyle changes encouraged, nutrition consulted. (4) Fe Deficiency Anemia: Admission Hgb 12.2, has been following w/ Hematology/oncology and has received IV venofer in the past. (5) Chronic Leukocytosis: Patient evaluated per Hem/Onc w/ BCR/ABL performed to assess for chronic leukocytosis 12/15/2017 which was negative, therefore her elevation felt secondary to her ongoing tobacco use. (6) CAD: Continue home regimen plavix, statin BB therapies. (7) Hypertension: Continue home regimen including Norvasc, lisinopril, metoprolol, PRN hydralazine. (8) Hyperlipidemia: Continue home statin regimen. (9) Diabetes mellitus type II: HgbA1c pending, unclear regimen, ADA diet, accu checks w/ ISS. (10) Anxiety and Depression/Schizophrenia: Continue home BuSpar, Risperidal, Cymbalta, Lyrica, trazodone regimen. (11) Tobacco Abuse: Encouraged cessation, inpatient consultation per RT, NR if desired. (12) RACHEL: CPAP q HS. (13) GERD w/ History of Peptic Ulcer: PPI Carafate. (14) History of Gastric Bypass: Has been resistant per Hem/Onc prior notes to supplementations. (15) DVT Prophylaxis: SCDs, lovenox. Code Visit Inpatient E&M: 83708 Init Hosp L3
[2018-03-08 17:35] LABS: Magnesium 1.8 mg/dL (1.6-2.6)
[2018-03-08] MEDS: 0.9% Normal Saline 1,000 ML 125 ML IV (17:38)
[2018-03-08] MEDS: levoFLOXacin IV 750 MG/150 ML BAG 100 MG IV (17:51)
[2018-03-08] MEDS: busPIRone 5 MG Tablet 10 MG PO (21:22)
[2018-03-08] MEDS: Lisinopril 20 MG Tablet PO (21:22)
[2018-03-08] MEDS: Pantoprazole Sodium 40 MG Tablet PO (21:22)
[2018-03-08] MEDS: RisperiDONE 2 MG Tablet 4 MG PO (21:22)
[2018-03-08] MEDS: Atorvastatin Calcium 80 MG Tablet PO (21:22)
[2018-03-08] MEDS: Montelukast 10 MG Tablet PO (21:22)
[2018-03-08] MEDS: Pregabalin 50 MG Capsule PO (21:27)
[2018-03-08 21:40] LABS: Bedside Glucose 247 mg/dL (70-110)
[2018-03-08] MEDS: Insulin Lispro 100 UNIT/ML INSULN.PEN SC (21:42)
[2018-03-09] VITALS (20 sets, daily range): BP systolic 139–152; BP diastolic 67–81; PULSE 74–95; RESP 16–24; TEMP 36.4–36.7; O2SAT 90–98
[2018-03-09] MEDS: Ipratropium/Albuterol Sulfate 3 ML AMPUL.NEB INHALATION ×5 (00:21→20:04)
[2018-03-09] MEDS: 0.9% Normal Saline 1,000 ML 125 ML IV ×2 (03:09→12:10)
[2018-03-09] MEDS: Acetaminophen 325 MG Tablet 650 MG PO ×3 (03:25→17:16)
[2018-03-09] MEDS: Albuterol 2.5 MG/3 ML VIAL.NEB. INHALATION (03:28)
--- NOTE | 2018-03-09 06:30 | RAD_ITS ---
STUDY: X-RAY CHEST REASON FOR EXAM: Female, 52 years old. Cough and shortness of breath. TECHNIQUE: PA and lateral views of the chest. COMPARISON: Comparison is made with prior study dated March 08, 2018. FINDINGS: EKG electrodes are seen. There now is evidence of vascular congestion and CHF. Mild degree of increased markings at the lung bases slightly more prominent on the left side. This most likely represents bibasilar atelectasis. There is no demonstrated pleural abnormality. Normal size heart. Normal mediastinum and alden. Normal visualized pulmonary arteries. Normal visualized aortic arch and descending thoracic aorta. There are diffuse degenerative changes of the visualized thoracic spine. Normal visualized ribs, clavicles, and shoulders. There is no demonstrated abnormality of the visualized soft tissue structures of the upper abdomen. RAD/Chest PA and Lateral IMPRESSION: Findings in cobra catheter CHF and bibasilar atelectasis slightly worse on the left side. Electronically Signed: Manuelito Silva MD at 9:43 EST Tel [phone], Service support ,
[2018-03-09 06:33] LABS: Absolute Lymphocyte Count 0.35 X10^3/ul (0.83-4.51); Absolute Neutrophil Count 15.3 X10^3/uL (2.0-7.7); Basophil# 0.01 X10^3/uL; Basophil% 0.1 % (0-1); Hematocrit 35.1 % (37-47); Hemoglobin 11.6 g/dl (12.0-15.0); Lymphocyte # 0.35 X10^3/ul (4.0); Lymphocyte % 2.1 % (19-41); Mean Corpuscular Hgb 26.9 pg (27.0-32.0); Mean Corpuscular Volume 81.3 fL (81-99); Mean Platelet Vol. 10.2 fl (6.2-12.0); Monocyte# 0.62 X10^3/uL; Monocyte% 3.8 % (0-10); Neutrophil # 15.28 X10^3/uL (2.7-7.7); Neutrophil % 93.8 % (47-70); Platelet Count 322 K/mm3 (150-450); RBC Distribution Width CV 17.8 % (11.6-14.6); RBC Distribution Width SD 51.5 fl (35.1-43.9); Red Blood Count 4.32 M/mm3 (4.2-5.4); White Blood Count 16.3 K/mm3 (4.4-11.0)
[2018-03-09 06:37] LABS: POSITIVE COUNT NO; POSITIVE MORPHOLOGY NO
[2018-03-09 07:00] LABS: Anion Gap 7 (5-15); BUN 7 mg/dL (7-18); BUN/Creat Ratio 9.1 RATIO (10-20); Calcium,Total 9.1 mg/dL (8.5-10.1); Chloride 109 mmol/L (98-107); Creatinine, Serum 0.77 mg/dL (0.55-1.02); EST Glomerular Filtration Rate 83 mL/min (>60); Est Glom Filt Rate - Afr Amer 101 mL/min (>60); Glucose 206 mg/dL (74-106); Potassium 4.6 mmol/L (3.5-5.1); Sodium Level 133 mmol/L (136-145)
[2018-03-09] MEDS: busPIRone 5 MG Tablet 10 MG PO ×3 (07:03→21:47)
[2018-03-09] MEDS: Sucralfate 1 GM Tablet PO ×3 (07:03→15:41)
[2018-03-09] MEDS: Pregabalin 50 MG Capsule PO ×3 (07:03→21:47)
[2018-03-09] MEDS: 0.9% NaCl Peripheral Flush Adult/Peds IV ×2 (07:04→21:48)
[2018-03-09] MEDS: Insulin Lispro 100 UNIT/ML INSULN.PEN SC ×4 (07:07→21:45)
[2018-03-09 07:09] LABS: Differential Indicated SCAN CRITERIA MET; POSITIVE DIFFERENTIAL YES
[2018-03-09 07:16] LABS: Bedside Glucose 242 mg/dL (70-110)
[2018-03-09] MEDS: Loratadine 10 MG Tablet 5 MG PO (08:09)
[2018-03-09] MEDS: Enoxaparin 40 MG/0.4 ML Syringe SC (08:11)
[2018-03-09] MEDS: amLODIPine 10 MG Tablet PO (08:12)
[2018-03-09] MEDS: Clopidogrel Bisulfate 75 MG Tablet PO (08:12)
[2018-03-09] MEDS: Pantoprazole Sodium 40 MG Tablet PO ×2 (08:12→21:47)
[2018-03-09] MEDS: Metoprolol(XL)Succ 25 MG Tablet PO (08:12)
[2018-03-09] MEDS: guaiFENesin 1,200 MG Tablet 1200 MG PO ×2 (08:15→21:47)
[2018-03-09] MEDS: DULoxetine Hcl 60 MG Capsule 120 MG PO (08:15)
[2018-03-09] MEDS: Fluticasone 0.05% 1 SPRAY NASAL.SRY 2 SPRAY NASAL (08:16)
--- NOTE | 2018-03-09 09:05 | PCM.PN.HOSP ---
Patient Problems: Active and Suspected Problems (Last Reviewed 02/12/18 @ 14:33 by Aria Patel) Acute and chronic respiratory failure with hypoxia (Acute) COPD exacerbation (Acute) Pneumonia (Acute) Sepsis (Acute) Subjective: Patient seen and examined. She was admitted with a complaint of shortness of breath with wheezing and nonproductive cough as well as arthralgias and myalgias for about 3 days. Shortness of breath was worsened by exertion. She was admitted and is being managed for COPD exacerbation and sepsis due to pneumonia status acute on chronic hypoxic respiratory failure. Patient still complains of shortness of breath and wheezing and states the cough is productive of yellowish sputum. He denies any fever or chills and has a pleuritic chest pain worsened by coughing. She denies any abdominal pain diarrhea vomiting. Review of systems otherwise negative. Labs and vitals reviewed. Vitals/I&O's: Vital Signs Temp Pulse Resp BP Pulse Ox 98.1 F 87 16 142/81 H 95 03/09/18 08:29 03/09/18 08:42 03/09/18 08:29 03/09/18 08:29 03/09/18 08:29 Oxygen Flow Rate (L/min) 3 Oxygen Delivery Method Room Air Weight: 223 lb 15.834 oz Body Mass Index (BMI) 39.6 Intake and Output for Last 24 Hours 03/07/18 03/08/18 03/09/18 23:59 23:59 23:59 Intake Total 2303 / 2303 Balance 2303 / 2303 General: Alert, Oriented x3, Cooperative, - - mild respiratory distress HEENT: Atraumatic, PERRLA, EOMI, Normocephalic Oral: Moist Mucosa Neck: Supple, No JVD, Negative Carotid Bruits Lungs: - - mildly decreased breath sounds in all lung wilson, with mild wheezing. on 3L of oxygen Cardiovascular: Regular rate, Regular Rhythm, Normal S1, Normal S2, No murmurs Abdomen: Bowel Sounds Present, Soft, Non Tender, Non-Distended, No Hepato-splenomegaly Extremities: No clubbing, No cyanosis, No edema, Capillary Refill Less than 3 Seconds Skin: No rashes, No breakdown Musculoskeletal: No Tenderness to Palpation of Joints or Extremities Lymphatic: No Cervical, Supraclavicular, or Inguinal Adenopathy Neurological: Cranial nerves II-XII grossly intact, Neuro grossly intact, Motor Exam 5/5 strength throughout Psych/Mental Status: Normal Affect, Appropriate, Alert and oriented to time, place, person, mood and affect Microbiology Past 72 Hours 03/08/18 22:53 Urine, Clean Catch Legionella Antigen - Final 03/08/18 22:53 Urine, Clean Catch Streptococcus pneumoniae Antigen (M - Final Laboratory Results 03/08/18 14:40: WBC 17.5 H, RBC 4.59, Hgb 12.2, Hct 37.4, MCV 81.5, MCH 26.6 L, MCHC 32.6, RDW 18.0 H, RDW Differential 51.5 H, Plt Count 275, MPV 9.9, Immature Gran % (Auto) 0.200, Neut % (Auto) 83.2 H, Lymph % (Auto) 4.8 L, [place] % (Auto) 11.2 H, Eos % (Auto) 0.3, Baso % (Auto) 0.3, Absolute Neuts (auto) 14.6 H, Absolute Lymphs (auto) 0.84, Total Counted Not Reportable, Differential Comment , Diff Path Review July, Platelet Estimate ADEQUATE, RBC Morphology NORM C+C 03/08/18 14:40: Sodium 139, Potassium 3.4 L, Chloride 105, Carbon Dioxide 23.0, Anion Gap 11, BUN 5 L, Creatinine 0.87, Estim Creat Clear Calc 62.57, Est GFR (MDRD) Af Amer 87, Est GFR (MDRD) Non-Af 72, BUN/Creatinine Ratio 5.7 L, Glucose 127 H, Calcium 9.7 03/08/18 14:40: Magnesium 1.8 03/08/18 21:34: POC Glucose 247 H 03/09/18 05:26: WBC 16.3 H, RBC 4.32, Hgb 11.6 L, Hct 35.1 L, MCV 81.3, MCH 26.9 L, MCHC 33.0, RDW 17.8 H, RDW Differential 51.5 H, Plt Count 322, MPV 10.2, Immature Gran % (Auto) 0.200, Neut % (Auto) 93.8 H, Lymph % (Auto) 2.1 L, [place] % (Auto) 3.8, Eos % (Auto) 0.0, Baso % (Auto) 0.1, Absolute Neuts (auto) 15.3 H, Absolute Lymphs (auto) 0.35 L, Total Counted Not Reportable 03/09/18 05:35: Sodium 133 L, Potassium 4.6, Chloride 109 H, Carbon Dioxide 17.0 L, Anion Gap 7, BUN 7, Creatinine 0.77, Estim Creat Clear Calc 70.70, Est GFR (MDRD) Af Amer 101, Est GFR (MDRD) Non-Af 83, BUN/Creatinine Ratio 9.1 L, Glucose 206 H, Calcium 9.1 03/09/18 06:56: POC Glucose 242 H Current Medications Acetaminophen (Tylenol) 650 mg PO Q6H PRN PRN PRN Reason: Mild Pain (scale 0-3)/T>100.7 Last Admin: 03/09/18 03:25 Dose: 650 mg Al Hydroxide/Mg Hydroxide (Mylanta Ii) 30 ml PO Q6H PRN PRN PRN Reason: Gastric burning Albuterol Sulfate (Ventolin Aerosols) 2.5 mg INHALATION Q2H PRN PRN PRN Reason: SHORTNESS OF BREATH Last Admin: 03/09/18 03:28 Dose: 2.5 mg Albuterol/Ipratropium (Duoneb) 3 ml INHALATION Q4HWA.RT [facility] Last Admin: 03/09/18 07:17 Dose: 3 ml Amlodipine Besylate (Norvasc) 10 mg PO DAILY [facility] Last Admin: 03/09/18 08:12 Dose: 10 mg Atorvastatin Calcium (Lipitor) 80 mg PO QHS [facility] Last Admin: 03/08/18 21:22 Dose: 80 mg Buspirone HCl (Buspar) 10 mg PO TID [facility] Last Admin: 03/09/18 07:03 Dose: 10 mg Clopidogrel Bisulfate (Plavix) 75 mg PO DAILY [facility] Last Admin: 03/09/18 08:12 Dose: 75 mg Duloxetine HCl (Cymbalta) 120 mg PO DAILY [facility] Last Admin: 03/09/18 08:15 Dose: 120 mg Enoxaparin Sodium (Lovenox) 40 mg SC DAILY@1000 [facility] Last Admin: 03/09/18 08:11 Dose: 40 mg Fluticasone Propionate (Flonase Nasal [place]) 2 spray NASAL DAILY [facility] Last Admin: 01/04/19 08:16 Dose: 2 spray Guaifenesin (Mucinex) 1,200 mg PO Q12 [facility] Last Admin: 03/09/18 08:15 Dose: 1,200 mg Sodium Chloride () 1,000 mls @ 125 mls/hr IV .Q8H [facility] Last Admin: 03/09/18 03:09 Dose: 125 mls/hr Levofloxacin (Levaquin Iv) 750 mg in 150 mls @ 100 mls/hr IV Q24H [facility] Last Admin: 03/08/18 17:51 Dose: 100 mls/hr Insulin Human Lispro (Humalog Kwikpen (Bkc)) 0 unit SC ACHS [facility]; Protocol Last Admin: 03/09/18 07:07 Dose: 3 u Lisinopril (Zestril) 20 mg PO QHS [facility] Last Admin: 03/08/18 21:22 Dose: 20 mg Loratadine (Claritin) 5 mg PO DAILY [facility] Last Admin: 03/09/18 08:09 Dose: 5 mg Magnesium Hydroxide (Milk Of Magnesia) 30 ml PO DAILY PRN PRN PRN Reason: Constipation Methylprednisolone (Solu-Medrol) 40 mg IV Q8 [facility] Last Admin: 03/09/18 07:04 Dose: 40 mg Metoprolol Succinate (Toprol Xl (Beta Trino)) 25 mg PO DAILY [facility] Last Admin: 03/09/18 08:12 Dose: 25 mg Montelukast Sodium (Singulair) 10 mg PO QPM [facility] Last Admin: 03/08/18 21:22 Dose: 10 mg Nicotine (Nicoderm Cq (Pbkc)) 21 mg TRANSDERM. DAILY [facility] Last Admin: 03/09/18 08:11 Dose: 21 mg Ondansetron HCl (Zofran) 4 mg IV Q8H PRN PRN PRN Reason: NAUSEA Pantoprazole Sodium (Protonix) 40 mg PO BID [facility] Last Admin: 03/09/18 08:12 Dose: 40 mg Potassium Chloride (K-Dur) 10 meq PO DAILY [facility] Last Admin: 03/09/18 08:11 Dose: 10 meq Pregabalin (Lyrica) 50 mg PO TID [facility] Last Admin: 03/09/18 07:03 Dose: 50 mg Promethazine HCl (Phenergan) 12.5 mg IV Q6H PRN PRN PRN Reason: NAUSEA/VOMITING Risperidone (Risperdal) 4 mg PO QHS [facility] Last Admin: 03/08/18 21:22 Dose: 4 mg Senna/Docusate Sodium (Senokot-S, Adriane-Colace) 1 tablet PO BID PRN PRN Reason: constipation Sodium Chloride () 5 - 15 ml IV UD PRN PRN Reason: SALINE FLUSH Last Admin: 03/09/18 07:04 Dose: 10 ml Sucralfate (Carafate) 1 gm PO 0700,1100,1600 [facility] Last Admin: 03/09/18 07:03 Dose: 1 gm Trazodone HCl (Desyrel) 200 mg PO QHS PRN PRN Reason: insomnia Medical Necessity - Tobacco Use Smoking Status: Current every day smoker Tobacco Use: Cigarettes Assessment/Plan All Active Problems (Last Reviewed 02/12/18 @ 14:33 by Aria Patel) Tiredness (Acute) Acute and chronic respiratory failure with hypoxia (Acute) COPD exacerbation (Acute) Pneumonia (Acute) Sepsis (Acute) PND (post-nasal drip) (Acute) Peptic ulcer (Acute) Bloody stool (Acute) Acute respiratory failure (Acute) CAP (community acquired pneumonia) (Acute) Chest pain (Acute) Viral gastroenteritis (Acute) Diarrhea (Resolved) Hypokalemia (Resolved) 1. Sepsis due to community acquired pneumonia SIRS criteria- /4 (wbc of 16), though she has chronic leucocytosis; tachypnea has resolved CXR showed on IV levofloxacin; will continue continue huydration with IVF NS Sputum cultures pending. Urine for Legionella and strep pneumonia antigen were negative. 2. Acute on chronic hypoxic respiratory failure due to pneumonia and COPD exacerbation currently on 3L of oxygen. On IV Solu-Medrol and breathing treatments On IV levofloxacin Respiratory panel is pending. 3. Hyponatremia: Sodium is now down to 133. Likely due to hypotonic hypovolemic hyponatremia from decreased intake. Will hydrate and monitor. 4. Hypokalemia: Resolved 5. Non-anion gap acidosis: Bicarb is 17 today. Anion gap is 7. etiology is unclear. will monitor 6. Iron deficiency anemia: Hb is 11.6. continue monitoring 7. Hypertension: Fairly controlled. On Norvasc, lisinopril, metoprolol and as needed hydralazine 8. CAD: On aspirin, Plavix, statin, and beta-trino. 9. Diabetes mellitus: On insulin sliding scale. Diet controlled. Last A1c was 5.3 in December 2016. A1c pending in this admission. 10. Chronic leukocytosis. Has been evaluated by hematology oncology for chronic leucocytosis. All testing was negative, and it is thought that chronic leukocytosis is due to her chronic tobacco use. 11. Nicotine abuse: still smokes 2 packs daily. Counselled to quit. Nicotine patch. Smoking cessation consult 12. Anxiety, depression and schizophrenia: on home buspar, risperdal, cymbalta, lyrica and trazodone. 13. RACHEL: on CPAP qhs 14. Morbid obesity s/p gastric bypass: complicates care, management and prognosis 15. History of PUDs: on PPI and carafate DVT prophylaxis; lovenox Code Visit Inpatient E&M: 82156 Subs Hosp L3
--- NOTE | 2018-03-09 09:22 | PN_ITS ---
Patient Problems: Active and Suspected Problems (Last Reviewed 02/12/18 @ 14:33 by Aria Patel) Acute and chronic respiratory failure with hypoxia (Acute) COPD exacerbation (Acute) Pneumonia (Acute) Sepsis (Acute) Subjective: Patient seen and examined. She was admitted with a complaint of shortness of breath with wheezing and nonproductive cough as well as arthralgias and myalgias for about 3 days. Shortness of breath was worsened by exertion. She was admitted and is being managed for COPD exacerbation and sepsis due to pneumonia status acute on chronic hypoxic respiratory failure. Patient still complains of shortness of breath and wheezing and states the cough is productive of yellowish sputum. He denies any fever or chills and has a pleuritic chest pain worsened by coughing. She denies any abdominal pain diarrhea vomiting. Review of systems otherwise negative. Labs and vitals reviewed. Vitals/I&O's: Vital Signs Temp Pulse Resp BP Pulse Ox 98.1 F 87 16 142/81 H 95 03/09/18 08:29 03/09/18 08:42 03/09/18 08:29 03/09/18 08:29 03/09/18 08:29 Oxygen Flow Rate (L/min) 3 Oxygen Delivery Method Room Air Weight: 223 lb 15.834 oz Body Mass Index (BMI) 39.6 Intake and Output for Last 24 Hours 03/07/18 03/08/18 03/09/18 23:59 23:59 23:59 Intake Total 2303 / 2303 Balance 2303 / 2303 General: Alert, Oriented x3, Cooperative, - - mild respiratory distress HEENT: Atraumatic, PERRLA, EOMI, Normocephalic Oral: Moist Mucosa Neck: Supple, No JVD, Negative Carotid Bruits Lungs: - - mildly decreased breath sounds in all lung wilson, with mild wheezing. on 3L of oxygen Cardiovascular: Regular rate, Regular Rhythm, Normal S1, Normal S2, No murmurs Abdomen: Bowel Sounds Present, Soft, Non Tender, Non-Distended, No Hepato- splenomegaly Extremities: No clubbing, No cyanosis, No edema, Capillary Refill Less than 3 Seconds Skin: No rashes, No breakdown Musculoskeletal: No Tenderness to Palpation of Joints or Extremities Lymphatic: No Cervical, Supraclavicular, or Inguinal Adenopathy Neurological: Cranial nerves II-XII grossly intact, Neuro grossly intact, Motor Exam 5/5 strength throughout Psych/Mental Status: Normal Affect, Appropriate, Alert and oriented to time, place, person, mood and affect Microbiology Past 72 Hours 03/08/18 22:53 Urine, Clean Catch Legionella Antigen - Final 03/08/18 22:53 Urine, Clean Catch Streptococcus pneumoniae Antigen (M - Final Laboratory Results 03/08/18 14:40: WBC 17.5 H, RBC 4.59, Hgb 12.2, Hct 37.4, MCV 81.5, MCH 26.6 L, MCHC 32.6, RDW 18.0 H, RDW Differential 51.5 H, Plt Count 275, MPV 9.9, Immature Gran % (Auto) 0.200, Neut % (Auto) 83.2 H, Lymph % (Auto) 4.8 L, [place] % (Auto) 11.2 H, Eos % (Auto) 0.3, Baso % (Auto) 0.3, Absolute Neuts (auto) 14.6 H, Absolute Lymphs (auto) 0.84, Total Counted Not Reportable, Differential Comment , Diff Path Review July, Platelet Estimate ADEQUATE, RBC Morphology NORM C+C 03/08/18 14:40: Sodium 139, Potassium 3.4 L, Chloride 105, Carbon Dioxide 23.0, Anion Gap 11, BUN 5 L, Creatinine 0.87, Estim Creat Clear Calc 62.57, Est GFR (MDRD) Af Amer 87, Est GFR (MDRD) Non-Af 72, BUN/Creatinine Ratio 5.7 L, Glucose 127 H, Calcium 9.7 03/08/18 14:40: Magnesium 1.8 03/08/18 21:34: POC Glucose 247 H 03/09/18 05:26: WBC 16.3 H, RBC 4.32, Hgb 11.6 L, Hct 35.1 L, MCV 81.3, MCH 26.9 L, MCHC 33.0, RDW 17.8 H, RDW Differential 51.5 H, Plt Count 322, MPV 10.2, Immature Gran % (Auto) 0.200, Neut % (Auto) 93.8 H, Lymph % (Auto) 2.1 L, [place] % (Auto) 3.8, Eos % (Auto) 0.0, Baso % (Auto) 0.1, Absolute Neuts (auto) 15.3 H, Absolute Lymphs (auto) 0.35 L, Total Counted Not Reportable 03/09/18 05:35: Sodium 133 L, Potassium 4.6, Chloride 109 H, Carbon Dioxide 17.0 L, Anion Gap 7, BUN 7, Creatinine 0.77, Estim Creat Clear Calc 70.70, Est GFR (MDRD) Af Amer 101, Est GFR (MDRD) Non-Af 83, BUN/Creatinine Ratio 9.1 L, Glucose 206 H, Calcium 9.1 03/09/18 06:56: POC Glucose 242 H Current Medications Acetaminophen (Tylenol) 650 mg PO Q6H PRN PRN PRN Reason: Mild Pain (scale 0-3)/T>100.7 Last Admin: 03/09/18 03:25 Dose: 650 mg Al Hydroxide/Mg Hydroxide (Mylanta Ii) 30 ml PO Q6H PRN PRN PRN Reason: Gastric burning Albuterol Sulfate (Ventolin Aerosols) 2.5 mg INHALATION Q2H PRN PRN PRN Reason: SHORTNESS OF BREATH Last Admin: 03/09/18 03:28 Dose: 2.5 mg Albuterol/Ipratropium (Duoneb) 3 ml INHALATION Q4HWA.RT [facility] Last Admin: 03/09/18 07:17 Dose: 3 ml Amlodipine Besylate (Norvasc) 10 mg PO DAILY [facility] Last Admin: 03/09/18 08:12 Dose: 10 mg Atorvastatin Calcium (Lipitor) 80 mg PO QHS [facility] Last Admin: 03/08/18 21:22 Dose: 80 mg Buspirone HCl (Buspar) 10 mg PO TID [facility] Last Admin: 03/09/18 07:03 Dose: 10 mg Clopidogrel Bisulfate (Plavix) 75 mg PO DAILY [facility] Last Admin: 03/09/18 08:12 Dose: 75 mg Duloxetine HCl (Cymbalta) 120 mg PO DAILY [facility] Last Admin: 03/09/18 08:15 Dose: 120 mg Enoxaparin Sodium (Lovenox) 40 mg SC DAILY@1000 [facility] Last Admin: 03/09/18 08:11 Dose: 40 mg Fluticasone Propionate (Flonase Nasal [place]) 2 spray NASAL DAILY [facility] Last Admin: 01/04/19 08:16 Dose: 2 spray Guaifenesin (Mucinex) 1,200 mg PO Q12 [facility] Last Admin: 03/09/18 08:15 Dose: 1,200 mg Sodium Chloride () 1,000 mls @ 125 mls/hr IV .Q8H [facility] Last Admin: 03/09/18 03:09 Dose: 125 mls/hr Levofloxacin (Levaquin Iv) 750 mg in 150 mls @ 100 mls/hr IV Q24H [facility] Last Admin: 03/08/18 17:51 Dose: 100 mls/hr Insulin Human Lispro (Humalog Kwikpen (Bkc)) 0 unit SC ACHS [facility]; Protocol Last Admin: 03/09/18 07:07 Dose: 3 u Lisinopril (Zestril) 20 mg PO QHS [facility] Last Admin: 03/08/18 21:22 Dose: 20 mg Loratadine (Claritin) 5 mg PO DAILY [facility] Last Admin: 03/09/18 08:09 Dose: 5 mg Magnesium Hydroxide (Milk Of Magnesia) 30 ml PO DAILY PRN PRN PRN Reason: Constipation Methylprednisolone (Solu-Medrol) 40 mg IV Q8 [facility] Last Admin: 03/09/18 07:04 Dose: 40 mg Metoprolol Succinate (Toprol Xl (Beta Trino)) 25 mg PO DAILY [facility] Last Admin: 03/09/18 08:12 Dose: 25 mg Montelukast Sodium (Singulair) 10 mg PO QPM [facility] Last Admin: 03/08/18 21:22 Dose: 10 mg Nicotine (Nicoderm Cq (Pbkc)) 21 mg TRANSDERM. DAILY [facility] Last Admin: 03/09/18 08:11 Dose: 21 mg Ondansetron HCl (Zofran) 4 mg IV Q8H PRN PRN PRN Reason: NAUSEA Pantoprazole Sodium (Protonix) 40 mg PO BID [facility] Last Admin: 03/09/18 08:12 Dose: 40 mg Potassium Chloride (K-Dur) 10 meq PO DAILY [facility] Last Admin: 03/09/18 08:11 Dose: 10 meq Pregabalin (Lyrica) 50 mg PO TID [facility] Last Admin: 03/09/18 07:03 Dose: 50 mg Promethazine HCl (Phenergan) 12.5 mg IV Q6H PRN PRN PRN Reason: NAUSEA/VOMITING Risperidone (Risperdal) 4 mg PO QHS [facility] Last Admin: 03/08/18 21:22 Dose: 4 mg Senna/Docusate Sodium (Senokot-S, Adriane-Colace) 1 tablet PO BID PRN PRN Reason: constipation Sodium Chloride () 5 - 15 ml IV UD PRN PRN Reason: SALINE FLUSH Last Admin: 03/09/18 07:04 Dose: 10 ml Sucralfate (Carafate) 1 gm PO 0700,1100,1600 [facility] Last Admin: 03/09/18 07:03 Dose: 1 gm Trazodone HCl (Desyrel) 200 mg PO QHS PRN PRN Reason: insomnia Medical Necessity - Tobacco Use Smoking Status: Current every day smoker Tobacco Use: Cigarettes Assessment/Plan All Active Problems (Last Reviewed 02/12/18 @ 14:33 by Aria Patel) Tiredness (Acute) Acute and chronic respiratory failure with hypoxia (Acute) COPD exacerbation (Acute) Pneumonia (Acute) Sepsis (Acute) PND (post-nasal drip) (Acute) Peptic ulcer (Acute) Bloody stool (Acute) Acute respiratory failure (Acute) CAP (community acquired pneumonia) (Acute) Chest pain (Acute) Viral gastroenteritis (Acute) Diarrhea (Resolved) Hypokalemia (Resolved) 1. Sepsis due to community acquired pneumonia * SIRS criteria- 1/4 (wbc of 16), though she has chronic leucocytosis; tachypnea has resolved * CXR showed * on IV levofloxacin; will continue * continue huydration with IVF NS * Sputum cultures pending. Urine for Legionella and strep pneumonia antigen were negative. * 2. Acute on chronic hypoxic respiratory failure due to pneumonia and COPD exacerbation * currently on 3L of oxygen. * On IV Solu-Medrol and breathing treatments * On IV levofloxacin * Respiratory panel is pending. * 3. Hyponatremia: * Sodium is now down to 133. * Likely due to hypotonic hypovolemic hyponatremia from decreased intake. * Will hydrate and monitor. * 4. Hypokalemia: Resolved 5. Non-anion gap acidosis: * Bicarb is 17 today. * Anion gap is 7. * etiology is unclear. * will monitor * 6. Iron deficiency anemia: Hb is 11.6. continue monitoring 7. Hypertension: Fairly controlled. On Norvasc, lisinopril, metoprolol and as needed hydralazine 8. CAD: On aspirin, Plavix, statin, and beta-trino. 9. Diabetes mellitus: On insulin sliding scale. Diet controlled. Last A1c was 5.3 in December 2016. A1c pending in this admission. 10. Chronic leukocytosis. * Has been evaluated by hematology oncology for chronic leucocytosis. * All testing was negative, and it is thought that chronic leukocytosis is due to her chronic tobacco use. * 11. Nicotine abuse: still smokes 2 packs daily. Counselled to quit. Nicotine patch. Smoking cessation consult 12. Anxiety, depression and schizophrenia: on home buspar, risperdal, cymbalta, lyrica and trazodone. 13. RACHEL: on CPAP qhs 14. Morbid obesity s/p gastric bypass: complicates care, management and prognosis 15. History of PUDs: on PPI and carafate DVT prophylaxis; lovenox Code Visit Inpatient E&M: 23124 Subs Hosp L3
[2018-03-09 11:11] LABS: Bedside Glucose 202 mg/dL (70-110)
--- NOTE | 2018-03-09 11:15 | CASEMGMT ---
PAMELA ALVAREZ Face to Face with patient for initial transition planning/care coordination assessment. RN CM introduced self and role at [facility]. Patient lying in bed, alert and oriented. Patient willing to participate in assessment and is able to answer all questions appropriately. Care providers, pharmacy, and demographics verified. Patient wishes to discharge home, denies need for home health at this time. RN CM encouraged patient to have family bring in portable oxygen prior to discharge. Patient states she has no further needs or concerns at this time. CM to follow for discharge planning needs that may arise. PCP: Claudia Specialists: [employer] Preferred Pharmacy: [place] Insurance: [employer] [facility] Prescription Benefit: yes Living Will/HPOA: Yes sister Jessica Payan LNOK: sister Living Arrangements: Patient lives alone in 5th floor apt with elevator to enter apartment. Patient independent at home. Transportation: Self/taxi DME/HHC: Patient has rollator, cane, shower chair, raised toilet seat, grab bars, Oxygen at 3lpm from [employer], BiPap, nebulizer at home. Patient has had [facility] in past. Patient has been to [facility] x4 Disposition Plan: Patient to discharge home with follow-up plans in place. Bianca BERKOWITZ, RN, CM
--- NOTE | 2018-03-09 13:37 | NURSING ---
pt requesting to go home. she stated she is late on her rent and needs to take care of her cat. notified. dr jimenez stated she is not going to discharge her. she would have to leave [facility]. pt then stated she would stay but is anxious and requesting something for her nerves and her tizanidine that she takes at home. notified of pt request
[2018-03-09 13:58] LABS: Pathologist Review Reviewed
[2018-03-09] MEDS: guaiFENesin Dm 10 ML UDC PO ×2 (15:41→21:48)
[2018-03-09 15:51] LABS: Bedside Glucose 239 mg/dL (70-110)
[2018-03-09] MEDS: RisperiDONE 2 MG Tablet 4 MG PO (21:47)
[2018-03-09] MEDS: Lisinopril 20 MG Tablet PO (21:47)
[2018-03-09] MEDS: Atorvastatin Calcium 80 MG Tablet PO (21:47)
[2018-03-09] MEDS: levoFLOXacin IV 750 MG/150 ML BAG 100 MG IV (21:48)
[2018-03-09] MEDS: traZODone 100 MG Tablet 200 MG PO (21:50)
[2018-03-09] MEDS: Montelukast 10 MG Tablet PO (21:56)
[2018-03-09 22:15] LABS: Bedside Glucose 288 mg/dL (70-110)
[2018-03-10] VITALS (9 sets, daily range): BP systolic 145–148; BP diastolic 75–87; PULSE 69–86; RESP 12–23; TEMP 36.5–36.7; O2SAT 96–98
[2018-03-10] MEDS: Ipratropium/Albuterol Sulfate 3 ML AMPUL.NEB INHALATION ×2 (00:05→07:16)
[2018-03-10] MEDS: MELATONIN 3 MG TABLET PO (00:42)
--- NOTE | 2018-03-10 00:42 | CPS ---
pt switched to Bipap mode d/t pt's home settings of 20/02
[2018-03-10] MEDS: Acetaminophen 325 MG Tablet 650 MG PO (02:18)
[2018-03-10] MEDS: Pregabalin 50 MG Capsule PO (06:32)
[2018-03-10] MEDS: Insulin Lispro 100 UNIT/ML INSULN.PEN SC (06:33)
[2018-03-10] MEDS: 0.9% NaCl Peripheral Flush Adult/Peds IV (06:33)
[2018-03-10] MEDS: busPIRone 5 MG Tablet 10 MG PO (06:33)
[2018-03-10] MEDS: guaiFENesin Dm 10 ML UDC PO (06:41)
[2018-03-10] MEDS: Sucralfate 1 GM Tablet PO (06:41)
[2018-03-10 07:16] LABS: Bedside Glucose 252 mg/dL (70-110)
[2018-03-10 08:24] LABS: Absolute Lymphocyte Count 0.52 X10^3/ul (0.83-4.51); Absolute Neutrophil Count 13.3 X10^3/uL (2.0-7.7); Basophil# 0.01 X10^3/uL; Basophil% 0.1 % (0-1); Differential Indicated SCAN CRITERIA MET; Hematocrit 36.6 % (37-47); Hemoglobin 11.9 g/dl (12.0-15.0); Lymphocyte # 0.52 X10^3/ul (4.0); Lymphocyte % 3.6 % (19-41); Mean Corp Hgb Conc 32.5 g/gl (32-36); Mean Corpuscular Volume 80.1 fL (81-99); Mean Platelet Vol. 9.3 fl (6.2-12.0); Monocyte# 0.78 X10^3/uL; Monocyte% 5.3 % (0-10); Neutrophil % 90.9 % (47-70); POSITIVE COUNT NO; POSITIVE DIFFERENTIAL YES; POSITIVE MORPHOLOGY NO; Platelet Count 296 K/mm3 (150-450); RBC Distribution Width CV 17.7 % (11.6-14.6); RBC Distribution Width SD 51.3 fl (35.1-43.9); Red Blood Count 4.57 M/mm3 (4.2-5.4); White Blood Count 14.6 K/mm3 (4.4-11.0)
[2018-03-10 08:43] LABS: Anion Gap 9 (5-15); BUN 7 mg/dL (7-18); BUN/Creat Ratio 9.4 RATIO (10-20); Chloride 105 mmol/L (98-107); Creatinine, Serum 0.75 mg/dL (0.55-1.02); EST Glomerular Filtration Rate 87 mL/min (>60); Est Glom Filt Rate - Afr Amer 105 mL/min (>60); Estimated Creatinine Clearance 72.58 ml/min; Glucose 232 mg/dL (74-106); Potassium 4.4 mmol/L (3.5-5.1); Sodium Level 137 mmol/L (136-145)
--- NOTE | 2018-03-10 08:59 | PCM.DC ---
- Discharge Diagnoses Current Active Problems: Current Active and Chronic Problems (Last Reviewed 02/12/18 @ 14:33 by Aria Patel) Acute and chronic respiratory failure with hypoxia (Acute) COPD exacerbation (Acute) Pneumonia (Acute) Sepsis (Acute) You will use the following diet at home:: Cardiac Your food should be the consistency of: Regular Your liquids should be the consistency of: Regular/Thin Discharge Activity: Return to Normal Activity Weight Bearing Status: Weight bearing as tolerated Call your doctor if you observe: Fever of 101 or Higher, Shortness of breath, Dizziness Instructions: Tips for Quitting Smoking (Cardiovascular), What is COPD? Allergies/Adverse Reactions: Allergies amoxicillin Allergy (Verified 02/12/18 14:39) Itching clarithromycin [From Biaxin] Allergy (Verified 02/12/18 14:39) Unknown erythromycin base Allergy (Verified 02/12/18 14:39) Unknown methadone Allergy (Verified 02/12/18 14:39) Unknown metolazone Allergy (Verified 02/12/18 14:39) Unknown Penicillins Allergy (Verified 02/12/18 14:39) Hives Sulfa (Sulfonamide Antibiotics) Allergy (Verified 02/12/18 14:39) Hives ibuprofen Adverse Reaction (Verified 02/12/18 14:39) Other morphine Adverse Reaction (Verified 02/12/18 14:39) Other Medications to take at Discharge Atorvastatin Calcium [Lipitor] 80 mg PO QHS 08/22/15 Clopidogrel Bisulfate [Plavix] 75 mg PO DAILY 08/22/15 Metoprolol(XL)Succ [Toprol Xl (Beta Trino)] 25 mg PO DAILY 08/22/15 Nitroglycerin 0.4 mg SL PRN PRN 11/08/16 Duloxetine Hcl [Cymbalta] 120 mg PO DAILY 01/16/17 Buspirone HCl 10 mg PO TID 02/16/17 amlodipine 10 mg tablet 20 mg PO DAILY tab 05/02/17 lisinopril 20 mg tablet 20 mg PO QHS #30 tab 05/02/17 potassium chloride ER 10 mEq tablet,extended release(part/cryst) 10 meq PO DAILY #60 tab 06/16/17 albuterol sulfate 2.5 mg/3 mL (0.083 %) solution for nebulization 2.5 mg INHALATION Q4H PRN #180 vial 11/09/17 Sucralfate [Carafate] 1 g PO TID 11/25/17 albuterol sulfate HFA 90 mcg/actuation aerosol inhaler 2 puff INHALATION Q4H PRN PRN #18 g 11/29/17 fluticasone-salmeterol 230 mcg-21 mcg/actuation HFA aerosol inhaler 2 puff INHALATION BID #12 g 01/15/18 Fexofenadine HCl [Tiarra Allergy] 1 tab PO DAILY 02/12/18 Fluticasone 0.05% [Flonase Nasal [place]] 2 spray NASAL DAILY 02/12/18 Montelukast [Singulair] 10 mg PO QHS 03/08/18 Omeprazole 40 mg PO DAILY 03/08/18 Oxybutynin Chloride [Oxybutynin Chloride ER] 15 mg PO DAILY 03/08/18 Pregabalin [Lyrica] 75 mg PO TID 03/08/18 Risperidone 4 mg PO QHS 03/08/18 Tizanidine HCl 6 mg PO TID PRN PRN 03/08/18 traZODone [Desyrel] 200 mg PO QHS 03/08/18 Guaifenesin [Mucinex] 1,200 mg PO BID #30 tablet 03/10/18 Levofloxacin 750 mg PO DAILY #5 tablet 03/10/18 predniSONE tablet 40 mg PO DAILY 5 Days #10 tablet 03/10/18 The following prescriptions were given: Levofloxacin 750 mg PO DAILY #5 tablet predniSONE tablet 40 mg PO DAILY 5 Days #10 tablet Guaifenesin [Mucinex] 1,200 mg PO BID #30 tablet Primary Care Physician: Janel Taylor MD [Primary Care Provider] - Please follow up with your Primary Care Physician in: 1 week Test Results: Test results from this visit will be discussed in further detail at your follow-up appointment, if applicable. Proposed Discharge Date: 03/10/18
--- NOTE | 2018-03-10 09:01 | PCM.DC.SUM ---
Discharge Date and Diagnosis - Problem List Patient Problems: Active and Suspected Problems (Last Reviewed 02/12/18 @ 14:33 by Aria Patel) Acute and chronic respiratory failure with hypoxia (Acute) COPD exacerbation (Acute) Pneumonia (Acute) Sepsis (Acute) Date of Admission: 03/08/18 Date of Discharge: 03/10/18 - Primary Discharge Diagnosis Active and Suspected Problems (Last Reviewed 02/12/18 @ 14:33 by Aria Patel) Acute and chronic respiratory failure with hypoxia (Acute) COPD exacerbation (Acute) Pneumonia (Acute) Sepsis (Acute) - Secondary Discharge Diagnosis Chronic Problems (Last Reviewed 02/12/18 @ 14:33 by Aria Patel) Iron deficiency (Chronic) Stage 2 moderate COPD by GOLD classification (Chronic) HTN (hypertension) (Chronic) Epigastric pain (Chronic) Chronic neutrophilia (Chronic) Iron deficiency anemia following bariatric surgery (Chronic) Osteoarthritis (Chronic) Morbid obesity (Chronic) Neutrophilic leukocytosis (Chronic) Type 2 diabetes mellitus (Chronic) Schizophrenia (Chronic) Hip osteoarthritis (Chronic) with chronic pain-right hip Iron deficiency anemia due to dietary causes (Chronic) exact cause of iron def anemia unknown-felt likely secondary to past history gastric bypass- although chronic blood loss etiology a possibility (has never had colonoscopy)-further workup including hemoccult stool is recommended Microcytic anemia (Chronic) Morbid obesity with BMI of 45.0-49.9, adult (Chronic) Pulmonary hypertension (Chronic) Chronic narcotic use (Chronic) Depression (Chronic) Gastroesophageal reflux disease (Chronic) Parathyroid abnormality (Chronic) History of PTCA (Chronic) Vitamin D deficiency (Chronic) Hyperlipidemia (Chronic) History of peptic ulcer disease (Chronic) Thyroid nodule (Chronic) deemed to be benign. Benign essential hypertension (Chronic) CAD (coronary artery disease) (Chronic) RACHEL (obstructive sleep apnea) (Chronic) 17/13 cm of water Spinal stenosis of lumbar region at multiple levels (Chronic) Tobacco abuse (Chronic) COPD (chronic obstructive pulmonary disease) with emphysema (Chronic) Hospital Course and Treatment Imaging Results: Diagnostic Data Chest X-Ray 03/09/18 06:30 IMPRESSION: Findings in cobra catheter CHF and bibasilar atelectasis slightly worse on the left side. Electronically Signed: Manuelito Silva MD at 9:43 EST Tel [phone], Service support , Operations: None, total hip replacement Procedures: None Summary of Care Provided: The patient is a 52 year old F with an extensive past medical history as listed. She was admitted with a complaint of worsening nonproductive cough, shortness of breath, arthralgias and myalgias for 3 days. Shortness of breath worsened with exertion. She was on 3 L of oxygen at home due to chronic hypoxic respiratory failure due to chronic COPD and continues to smoke. In the ED she was noted to desaturate to the 60s and 70s [place] on exertion as she was having her chest x-ray done even on 3 L of oxygen. She was admitted and managed for acute hypoxic respiratory failure due to COPD exacerbation and sepsis due to community-acquired pneumonia.. She was started on breathing treatments, doxycycline and oxygen was titrated to maintain saturation above 92%. Urine for Legionella and strep pneumonia were negative. Sputum cultures grew presumptive Diana albicans and respiratory panel was negative. Patient improved significantly and went back to her baseline 3 L of oxygen. She remained stable and was discharged home on 03/10/2018. Patient seen and examined prior to discharge. She felt well and wanted to be discharged. Cough had improved significantly and she denied any fever or chills, and shortness of breath had also resolved. She denied any abdominal pain, diarrhea vomiting. 12 point review of systems otherwise negative. Labs and vitals reviewed. Home medications reviewed and reconciled. o/e; Vitals: Vital Signs Height 5 ft 3 in Weight: 223 lb 15.834 oz Weight in Pounds 224.0 lbs Pulse Ox 98 Temperature 98.1 F Pulse Rate 78 Respiratory Rate 18 Blood Pressure 148/87 Blood Pressure Position Sitting [] General: Alert, Oriented x3, Cooperative, HEENT: Atraumatic, PERRLA, EOMI, Normocephalic Oral: Moist Mucosa Neck: Supple, No JVD, Negative Carotid Bruits Lungs: - - clear to auscultation. No wheezing or crackles. on 3L of oxygen Cardiovascular: Regular rate, Regular Rhythm, Normal S1, Normal S2, No murmurs Abdomen: Bowel Sounds Present, Soft, Non Tender, Non-Distended, No Hepato-splenomegaly Extremities: No clubbing, No cyanosis, No edema, Capillary Refill Less than 3 Seconds Skin: No rashes, No breakdown Musculoskeletal: No Tenderness to Palpation of Joints or Extremities Lymphatic: No Cervical, Supraclavicular, or Inguinal Adenopathy Neurological: Cranial nerves II-XII grossly intact, Neuro grossly intact, Motor Exam 5/5 strength throughout Psych/Mental Status: Normal Affect, Appropriate, Alert and oriented to time, place, person, mood and affect Plan as detailed above. She was discharged with a script for PO levofloxacin, prednisone and guafenesin. She is to follow up with her PCP. Patient was also counselled strongly to quit smoking. Patient Problems: Active and Suspected Problems (Last Reviewed 02/12/18 @ 14:33 by Aria Patel) Acute and chronic respiratory failure with hypoxia (Acute) COPD exacerbation (Acute) Pneumonia (Acute) Sepsis (Acute) - Physical Exam Vital Signs Temp Pulse Resp BP Pulse Ox 97.7 F L 72 22 H 145/75 H 96 03/10/18 02:21 03/10/18 07:46 03/10/18 03:45 03/10/18 02:21 03/10/18 03:45 Oxygen Flow Rate (L/min) 3 Oxygen Delivery Method Bi-pap Weight: 223 lb 15.834 oz Body Mass Index (BMI) 39.6 Intake and Output for Last 24 Hours 03/08/18 03/09/18 03/10/18 23:59 23:59 23:59 Intake Total 4662 / 4662 1097 / 1097 Balance 4662 / 4662 1097 / 1097 Microbiology Past 72 Hours 03/08/18 22:15 Gram Stain - Final Sputum, Expectorated/Coughed Respiratory Culture - Preliminary Presumptive C albicans 03/08/18 20:07 Respiratory Panel (PCR) - Final Mucosa - Nasopharyngeal 03/08/18 22:53 Legionella Antigen - Final Urine, Clean Catch 03/08/18 22:53 Streptococcus pneumoniae Antigen (M - Final Urine, Clean Catch Laboratory Tests Past 24 Hrs 03/08/18 03/10/18 03/10/18 14:40 08:08 08:08 WBC 14.6 H RBC 4.57 Hgb 11.9 L Hct 36.6 L MCV 80.1 L MCH 26.0 L MCHC 32.5 RDW 17.7 H RDW Differential 51.3 H Plt Count 296 MPV 9.3 Immature Gran % (Auto) 0.100 Neut % (Auto) 90.9 H Lymph % (Auto) 3.6 L [place] % (Auto) 5.3 Eos % (Auto) 0.0 Baso % (Auto) 0.1 Absolute Neuts (auto) 13.3 H Absolute Lymphs (auto) 0.52 L Total Counted Not Reportable Diff Path Review Reviewed Sodium 137 Potassium 4.4 Chloride 105 Carbon Dioxide 23.0 Anion Gap 9 BUN 7 Creatinine 0.75 Estim Creat Clear Calc 72.58 Est GFR (MDRD) Af Amer 105 Est GFR (MDRD) Non-Af 87 BUN/Creatinine Ratio 9.4 L Glucose 232 H Calcium 10.0 POC Glucose 03/10/18 03/09/18 03/09/18 06:28 21:44 15:40 POC Glucose 252 H 288 H 239 H 03/09/18 10:56 POC Glucose 202 H Discharge Diet: Low fat/ Low Cholesterol Discharge Activity: Return to Normal Activity Weight Bearing Status: Weight bearing as tolerated Call your doctor if you observe: Fever of 101 or Higher, Shortness of breath, Dizziness Home Medications: Medications to take at Discharge Atorvastatin Calcium [Lipitor] 80 mg PO QHS 08/22/15 Clopidogrel Bisulfate [Plavix] 75 mg PO DAILY 08/22/15 Metoprolol(XL)Succ [Toprol Xl (Beta Trino)] 25 mg PO DAILY 08/22/15 Nitroglycerin 0.4 mg SL PRN PRN 11/08/16 Duloxetine Hcl [Cymbalta] 120 mg PO DAILY 01/16/17 Buspirone HCl 10 mg PO TID 02/16/17 amlodipine 10 mg tablet 20 mg PO DAILY tab 05/02/17 lisinopril 20 mg tablet 20 mg PO QHS #30 tab 05/02/17 potassium chloride ER 10 mEq tablet,extended release(part/cryst) 10 meq PO DAILY #60 tab 06/16/17 albuterol sulfate 2.5 mg/3 mL (0.083 %) solution for nebulization 2.5 mg INHALATION Q4H PRN #180 vial 11/09/17 Sucralfate [Carafate] 1 g PO TID 11/25/17 albuterol sulfate HFA 90 mcg/actuation aerosol inhaler 2 puff INHALATION Q4H PRN PRN #18 g 11/29/17 fluticasone-salmeterol 230 mcg-21 mcg/actuation HFA aerosol inhaler 2 puff INHALATION BID #12 g 01/15/18 Fexofenadine HCl [Tiarra Allergy] 1 tab PO DAILY 02/12/18 Fluticasone 0.05% [Flonase Nasal [place]] 2 spray NASAL DAILY 02/12/18 Montelukast [Singulair] 10 mg PO QHS 03/08/18 Omeprazole 40 mg PO DAILY 03/08/18 Oxybutynin Chloride [Oxybutynin Chloride ER] 15 mg PO DAILY 03/08/18 Pregabalin [Lyrica] 75 mg PO TID 03/08/18 Risperidone 4 mg PO QHS 03/08/18 Tizanidine HCl 6 mg PO TID PRN PRN 03/08/18 traZODone [Desyrel] 200 mg PO QHS 03/08/18 Guaifenesin [Mucinex] 1,200 mg PO BID #30 tab 03/10/18 Levofloxacin 750 mg PO DAILY #5 tab 03/10/18 predniSONE tablet 40 mg PO DAILY 5 Days #10 tab 03/10/18 Following Prescrptions Were Given to Patient: Levofloxacin 750 mg PO DAILY #5 tab predniSONE tablet 40 mg PO DAILY 5 Days #10 tab Guaifenesin [Mucinex] 1,200 mg PO BID #30 tab Primary Care Physician: Janel Taylor MD [Primary Care Provider] - Please follow up with your Primary Care Physician in: 1 week Patient Instructions: Tips for Quitting Smoking (Cardiovascular), What is COPD? Disposition: Home Minutes spent on discharge:: 35 Patient Condition:: Stable Medical Necessity - Tobacco Use Smoking Status: Current every day smoker Tobacco Use: Cigarettes Meaningful Use Info Meaningful Use Diagnoses (Choose all that apply): None applicable Code Visit Inpatient E&M: 75201 Disch Hosp
--- NOTE | 2018-03-12 16:30 | CASEMGMT ---
PAMELA ALVAREZ Discharge Follow-up Phone Call: ROSIO: 14 Strata: 4 Call Date: 03/12/18 Discharge Date: 03/10/18 Time of Call: 1630 Duration: 1 min Admitting Diagnosis: Resp failure, COPD exac, PNA, sepsis PAMELA ALVAREZ attempted to complete follow-up phone call after recent hospitalization. No answer, voice message left with return contact information.
== END 2018-03-10 11:43 | disposition home or self-care (01) | DRG 190 ==
LOC: ED 14:33 → MS3 16:53
PROVIDERS: Admitting Provider Family Medicine; Emergency Provider Emergency Medicine; Family Provider Family Medicine; PCP Family Medicine; Referring Provider Family Medicine; Visit Provider Student in an Organized Health Care Education/Training Program
DX: J44.1 Chronic obstructive pulmonary disease with (acute) exacerbation (principal); J96.21 Acute and chronic respiratory failure with hypoxia; E87.1 Hypo-osmolality and hyponatremia; J44.0 Chronic obstructive pulmonary disease with (acute) lower respiratory infection; E87.6 Hypokalemia; D50.9 Iron deficiency anemia, unspecified; I25.10 Atherosclerotic heart disease of native coronary artery without angina pectoris; E78.5 Hyperlipidemia, unspecified; Z99.81 Dependence on supplemental oxygen; G47.33 Obstructive sleep apnea (adult) (pediatric); K21.9 Gastro-esophageal reflux disease without esophagitis; E66.01 Morbid (severe) obesity due to excess calories; I10 Essential (primary) hypertension; E11.9 Type 2 diabetes mellitus without complications; F17.210 Nicotine dependence, cigarettes, uncomplicated; Z68.39 Body mass index [BMI] 39.0-39.9, adult; Z98.84 Bariatric surgery status; Z87.11 Personal history of peptic ulcer disease; Z79.02 Long term (current) use of antithrombotics/antiplatelets; Z79.899 Other long term (current) drug therapy; F20.9 Schizophrenia, unspecified; F32.9 Major depressive disorder, single episode, unspecified
CPT/HCPCS: 36415; 71046; 80048; 82962; 83735; 85025; 87070; 87106; 87205; 87449; 87633; 94002; 94003; 94640; 94660; 94667; 97802; 99285; 99406; J7030; A4216

== ENCOUNTER 2018-04-02 10:27 | Emergency (ER) | payer MEDICARE, SELFPAY ==
[2018-03-22 12:32] VITALS: BMI 40.4
[2018-04-02 10:29] VITALS: BP 161/90; PULSE 112; RESP 16; TEMP 36.7; O2SAT 98; BMI 39.1
--- NOTE | 2018-04-02 10:44 | RAD_ITS ---
STUDY: X-RAY - LUMBAR SPINE REASON FOR EXAM: Female, 52 years old. Fall TECHNIQUE: 3 view(s) of the lumbar spine were obtained. COMPARISON: 09/13/2016 FINDINGS: Compression deformity of the superior endplate of L1 with mild loss of height. Loss of height at this level has slightly progressed compared to prior study. Degenerative disc disease at L3-4 and L4-5. Multilevel facet disease. Right hip arthroplasty. Aortic calcifications. RAD/Lumbar Spine 2 or 3 Views IMPRESSION: Compression deformity of the superior endplate of L1 with mild loss of height. Loss of height at this level has slightly progressed compared to prior study. An acute reinjury is not excluded. MRI may be useful to further determine acuity if possible. Electronically Signed: Mata Forbes MD at 11:10 EST Tel , Service support ,
[2018-04-02] MEDS: HYDROcodone Bitartrate/Apap 5/325 Tablet PO (10:56)
--- NOTE | 2018-04-02 11:32 | ED.VISSUMM ---
- ER Visit Summary Date of Service: 04/02/18 Chief Complaint: Back injury History of Present Illness: The patient is a 52 F presenting secondary to a back injury. Patient reports that 2 days ago she suffered a mechanical fall where she fell directly onto her tailbone. She reports that she now has pain in her tailbone and lower back that is continuous worse with ambulation and sitting. She denies any radiation of the legs. Denies any fevers, recent surgeries injections or history of IV drug abuse. She denies any urinary retention incontinence constipation or fecal incontinence. She reports that Tylenol has not been alleviating her symptoms. Physical Examination: Vitals: Within normal limits General: Well-nourished well-developed no acute distress Head: Normocephalic atraumatic ENT: Moist mucous membranes Neck: Supple no JVD Cardiovascular: Heart regular rate and rhythm no murmurs Respiratory: Respirations nondistressed, lung sounds clear to auscultation bilaterally Abdominal: Soft, nontender, nondistended, normal bowel sounds, no evidence of abdominal masses or pulsatile mass Back: Normal to inspection, midline tenderness in the upper and lower lumbar spine with some left paraspinal tenderness, straight leg raise negative bilaterally Extremities: Nontender, nonedematous, 2+ radial and PT pulses bilaterally symmetric Skin: Normal color no rash Neuro: 5/5 strength hip flexion, knee flexion, knee extension, dorsiflexion, plantarflexion, EHL. Sensation intact over all dermatomes of the lower extremities bilaterally, 2+ patellar and Achilles reflexes bilaterally symmetric, negative clonus bilaterally Test Results: Lumbar x-rays show an L1 compression fracture Emergency Department Course and Treatment: Patient presented secondary to a back injury. X-rays show evidence of a compression fracture. She has no evidence of neurologic compromise. She was treated with [place] for pain in the emergency department, she will be discharged with a short course of this. She is instructed to follow-up with her primary care physician. Disposition: Discharge Impression: 1. L1 compression fracture secondary to mechanical fall This note was generated with [employer] dictation software. It may contain incorrect words, spelling, and punctuation that were not noted in review of the chart prior to signing ED Disposition - Plan for ED Patient: Disposition: Home or Assisted Living Chief Complaint: Back Diagnosis: Compression fracture of L1 lumbar vertebra Instructions: ED Fx Comp Vertebral Prescriptions: Hydrocodone Bitart/Apap 5-325 [[place] 5MG-325MG] 1 tab PO Q6H PRN PRN 3 Days #12 tab PRN Reason: Pain Referrals: Janel Taylor MD [Primary Care Provider] - 3-5 Days
--- NOTE | 2018-04-02 11:35 | ED.DCSUM_ITS ---
- ER Visit Summary Date of Service: 04/02/18 Chief Complaint: Back injury History of Present Illness: The patient is a 52 F presenting secondary to a back injury. Patient reports that 2 days ago she suffered a mechanical fall where she fell directly onto her tailbone. She reports that she now has pain in her tailbone and lower back that is continuous worse with ambulation and sitting. She denies any radiation of the legs. Denies any fevers, recent surgeries injections or history of IV drug abuse. She denies any urinary retention incontinence constipation or fecal incontinence. She reports that Tylenol has not been alleviating her symptoms. Physical Examination: Vitals: Within normal limits General: Well-nourished well-developed no acute distress Head: Normocephalic atraumatic ENT: Moist mucous membranes Neck: Supple no JVD Cardiovascular: Heart regular rate and rhythm no murmurs Respiratory: Respirations nondistressed, lung sounds clear to auscultation bilaterally Abdominal: Soft, nontender, nondistended, normal bowel sounds, no evidence of abdominal masses or pulsatile mass Back: Normal to inspection, midline tenderness in the upper and lower lumbar spine with some left paraspinal tenderness, straight leg raise negative bilaterally Extremities: Nontender, nonedematous, 2+ radial and PT pulses bilaterally symmetric Skin: Normal color no rash Neuro: 5/5 strength hip flexion, knee flexion, knee extension, dorsiflexion, plantarflexion, EHL. Sensation intact over all dermatomes of the lower extremities bilaterally, 2+ patellar and Achilles reflexes bilaterally symmetric, negative clonus bilaterally Test Results: Lumbar x-rays show an L1 compression fracture Emergency Department Course and Treatment: Patient presented secondary to a back injury. X-rays show evidence of a compression fracture. She has no evidence of neurologic compromise. She was treated with [place] for pain in the emergency department, she will be discharged with a short course of this. She is instructed to follow-up with her primary care physician. Disposition: Discharge Impression: 1. L1 compression fracture secondary to mechanical fall This note was generated with [employer] dictation software. It may contain incorrect words, spelling, and punctuation that were not noted in review of the chart prior to signing ED Disposition - Plan for ED Patient: Disposition: Home or Assisted Living Chief Complaint: Back Diagnosis: Compression fracture of L1 lumbar vertebra Instructions: ED Fx Comp Vertebral Prescriptions: Hydrocodone Bitart/Apap 5-325 [[place] 5MG-325MG] 1 tab PO Q6H PRN PRN 3 Days #12 tab PRN Reason: Pain Referrals: Janel Taylor MD [Primary Care Provider] - 3-5 Days
--- NOTE | 2018-04-02 11:38 | ED.RN ---
DISCHARGE INSTRUCTIONS GIVEN TO AND REVIEWED WITH PATIENT, PATIENT DENIES QUESTIONS OR CONCERNS AND VOICES UNDERSTANDING OF DISCHARGE INSTRUCTIONS. PT AMBULATES OUT OF ROOM WITHOUT ISSUE.
== END 2018-04-02 11:39 | disposition home or self-care (01) ==
PROVIDERS: Emergency Provider Emergency Medicine; Family Provider Family Medicine; PCP Family Medicine
DX: S32.019A Unspecified fracture of first lumbar vertebra, initial encounter for closed fracture (principal); W19.XXXA Unspecified fall, initial encounter; Y93.9 Activity, unspecified; Y92.9 Unspecified place or not applicable; Y99.9 Unspecified external cause status; I25.10 Atherosclerotic heart disease of native coronary artery without angina pectoris; J44.9 Chronic obstructive pulmonary disease, unspecified; I10 Essential (primary) hypertension; I25.2 Old myocardial infarction; Z72.0 Tobacco use; Z79.02 Long term (current) use of antithrombotics/antiplatelets; Z79.899 Other long term (current) drug therapy
CPT/HCPCS: 72100; 99283

== ENCOUNTER 2018-04-13 16:03 | Observation (INO) | payer MEDICARE, SELFPAY ==
[2018-04-13] VITALS (13 sets, daily range): BP systolic 103–143; BP diastolic 63–83; PULSE 69–94; RESP 18–30; TEMP 36.9–37.3; O2SAT 74–100; BMI 42.0; BMI 41.0
--- NOTE | 2018-04-13 16:25 | EKG12_ITS ---
Test Reason : SOB Blood Pressure : / mmHG Vent. Rate : 102 BPM Atrial Rate : 102 BPM P-R Int : 152 ms QRS Dur : 070 ms QT Int : 308 ms P-R-T Axes : 051 047 036 degrees QTc Int : 401 ms Sinus tachycardia Septal infarct , age undetermined Abnormal ECG Confirmed by MARYAM TAFOYA, JAZZMINE ([id number]), editor index SUKUMAR GODINEZ ([id number]) on 04/16/2018 10:14:40 AM Referred By: Confirmed By:JAZZMINE FRANCISCO MD
--- NOTE | 2018-04-13 16:26 | CT_ITS ---
STUDY: CTA CHEST REASON FOR EXAM: Female, 52 years old. Shortness of breath, surgery 2 days ago RADIATION DOSAGE (If Supplied By Facility): CTDIvol = ( 16.72 ) mGy, DLP = ( 678.13 ) mGycm TECHNIQUE: The examination was performed with the intravenous administration of 100 ml of Isovue 370 contrast material. Post-processing of the angiographic images was performed, with multiplanar reformation and 3D reconstruction. Individualized dose optimization techniques were used for this CT. COMPARISON: CT from 13 January 2017 FINDINGS: Normal enhancement of the main pulmonary artery and right and left pulmonary arteries. Normal enhancement of the bilateral peripheral pulmonary arteries. There is no demonstrated pulmonary embolism. Detection of segmental and subsegmental pulmonary embolism limited due to respiratory motion. Mild atherosclerosis of the thoracic aorta without evidence of aneurysm. Normal variant origin of the left vertebral artery from the aortic arch. There is no demonstrated aortic dissection. Normal heart and pericardium. There are endovascular stent(s) present. Normal mediastinum. Normal hilar regions. Normal visualized trachea and bronchi. The lungs are well expanded. Bandlike atelectasis of the right upper lobe, right middle lobe and left lower lobe. Patchy groundglass opacities of the right upper lobe and left lower lobe demonstrated. Normal pleura. Normal chest wall structures. Similar degenerative changes of the thoracic spine. Stable chronic healed fracture of the manubrium. Normal visualized upper abdomen. CT/CTA Chest W/WO Contrast IMPRESSION: 1. No central or obvious segmental pulmonary embolism. Exam quality limited by patient respiratory motion. 2. Scattered groundglass opacities in the right upper lobe and left lower lobe can suggest mild pneumonitis/edema. 3. Mild atelectasis. 4. Additional stable chronic changes, as above. Electronically Signed: Nitin Gimenez MD at 18:33 EST , Service support ,
--- NOTE | 2018-04-13 16:33 | ED.DCSUM_ITS ---
- ER Visit Summary Date of Service: 04/13/18 Chief Complaint: Shortness of breath History of Present Illness: The patient is a 52 F presenting with shortness of breath. She states this started yesterday. She has a productive cough. Denies fever. Denies chest pain. She has a history of COPD states this feels similar to her COPD symptoms. She is on home O2. She recently had left shoulder surgery per Dr. Cruz on Monday. She takes Percocet for pain for her shoulder. She is a smoker. Denies other complaints. Physical Examination: Vitals are stable. Temperature 99. Alert no acute distress. HEENT exam is unremarkable. Neck is supple. Lungs are wheezing bilaterally. Heart is regular rate and rhythm. Abdomen is soft nontender nondistended. Extremities incision clean dry and intact left shoulder. No warmth or erythema. Skin is warm and dry. No focal neurologic deficit. Remainder of exam is unremarkable. Emergency Department Course and Treatment: She was given albuterol, Atrovent aerosols. She was given her home dose of oxycodone. CBC shows white count 13.1. Chemistries normal except for sodium 133. Troponin is negative. EKG is sinus rate of 102. CTA chest shows no central or obvious segmental pulmonary embolism. Exam quality limited by patient respiratory motion. Scattered groundglass opacities in the right upper lobe and left lower lobe can suggest mild pneumonitis/edema. Mild atelectasis. On reevaluation, patient continues to be short of breath. She continues to have wheezing. She was given Solu-Medrol IV. With ambulation with oxygen her pulse ox was 80%. Discussed with the hospitalist for admission. Disposition: Admission Impression: COPD exacerbation This note was generated with [employer] dictation software. It may contain incorrect words, spelling, and punctuation that were not noted in review of the chart prior to signing ED Disposition - Plan for ED Patient: Referrals: Janel Taylor MD [Primary Care Provider] -
[2018-04-13] MEDS: Ipratropium/Albuterol Sulfate 3 ML AMPUL.NEB INHALATION (16:38)
[2018-04-13] MEDS: Albuterol 2.5 MG/3 ML VIAL.NEB. INHALATION ×2 (16:38→16:39)
[2018-04-13] MEDS: oxyCODONE 5 MG Tablet PO (17:03)
[2018-04-13 17:04] LABS: Absolute Lymphocyte Count 2.14 X10^3/ul (0.83-4.51); Basophil# 0.05 X10^3/uL; Basophil% 0.4 % (0-1); Differential Indicated SCAN CRITERIA MET; Eosinophil# 0.17 X10^3/uL; Eosinophils% 1.3 % (0-5); Hemoglobin 12.7 g/dl (12.0-15.0); Lymphocyte # 2.14 X10^3/ul (4.0); Lymphocyte % 16.4 % (19-41); Mean Corp Hgb Conc 31.8 g/gl (32-36); Mean Corpuscular Hgb 27.4 pg (27.0-32.0); Mean Corpuscular Volume 86.4 fL (81-99); Mean Platelet Vol. 9.2 fl (6.2-12.0); Monocyte# 1.73 X10^3/uL; Monocyte% 13.2 % (0-10); Neutrophil # 8.95 X10^3/uL (2.7-7.7); Neutrophil % 68.4 % (47-70); POSITIVE COUNT NO; POSITIVE DIFFERENTIAL YES; POSITIVE MORPHOLOGY YES; Platelet Count 238 K/mm3 (150-450); RBC Distribution Width CV 20.7 % (11.6-14.6); RBC Distribution Width SD 65.4 fl (35.1-43.9); Red Blood Count 4.63 M/mm3 (4.2-5.4); White Blood Count 13.1 K/mm3 (4.4-11.0)
[2018-04-13 17:15] LABS: Anion Gap 6 (5-15); BUN 6 mg/dL (7-18); BUN/Creat Ratio 7.7 RATIO (10-20); Calcium,Total 9.6 mg/dL (8.5-10.1); Chloride 99 mmol/L (98-107); Creatinine, Serum 0.78 mg/dL (0.55-1.02); EST Glomerular Filtration Rate 83 mL/min (>60); Est Glom Filt Rate - Afr Amer 100 mL/min (>60); Estimated Creatinine Clearance 69.79 ml/min; Glucose 108 mg/dL (74-106); Potassium 4.3 mmol/L (3.5-5.1); Sodium Level 133 mmol/L (136-145)
[2018-04-13 17:31] LABS: Differential Comment SCANNED
[2018-04-13] MEDS: MethylPREDNISolone 125 MG/2 ML Vial IV (20:02)
--- NOTE | 2018-04-13 20:19 | PCM.HP.STD ---
Problem List (1) Acute and chronic respiratory failure with hypoxia Status: Acute (2) COPD exacerbation Status: Acute (3) Peptic ulcer Status: Chronic History of Present Illness Date of Admission: 04/13/18 Chief Complaint: Shortness of breath The patient is a 52 year old F with a significant history of CAD status post coronary stents; COPD on 3L home oxygen; 2 packs/day tobacco abuse; recent right shoulder tendon release and currently in sling who presented to the emergency department because of progressively worsening shortness of breath x 2 days. Associated with her symptoms is wheezing and coughing. When the paramedics got to her home she was 81% on on 3 L. She was given a breathing treatment and brought to the hospital. At the hospital on 3 L her oxygen saturation was 80%. Because patient had a recent shoulder surgery CTPA was done. CTPA showed scattered ground glass opacities in the right upper lobe and left lower lobe suggestive of mild pneumonitis/edema; as well as mild atelectasis. Past Medical History Past Medical History (Chronic Problems): Chronic Problems (Last Reviewed 04/13/18 @ 20:49 by Zaid Patrick MD) Iron deficiency (Chronic) Stage 2 moderate COPD by GOLD classification (Chronic) HTN (hypertension) (Chronic) Peptic ulcer (Chronic) Epigastric pain (Chronic) Chronic neutrophilia (Chronic) Iron deficiency anemia following bariatric surgery (Chronic) Osteoarthritis (Chronic) Morbid obesity (Chronic) Neutrophilic leukocytosis (Chronic) Type 2 diabetes mellitus (Chronic) Schizophrenia (Chronic) Hip osteoarthritis (Chronic) with chronic pain-right hip Iron deficiency anemia due to dietary causes (Chronic) exact cause of iron def anemia unknown-felt likely secondary to past history gastric bypass- although chronic blood loss etiology a possibility (has never had colonoscopy)-further workup including hemoccult stool is recommended Microcytic anemia (Chronic) Morbid obesity with BMI of 45.0-49.9, adult (Chronic) Pulmonary hypertension (Chronic) Chronic narcotic use (Chronic) Depression (Chronic) Gastroesophageal reflux disease (Chronic) Parathyroid abnormality (Chronic) History of PTCA (Chronic) Vitamin D deficiency (Chronic) Hyperlipidemia (Chronic) History of peptic ulcer disease (Chronic) Thyroid nodule (Chronic) deemed to be benign. Benign essential hypertension (Chronic) CAD (coronary artery disease) (Chronic) RACHEL (obstructive sleep apnea) (Chronic) 17/13 cm of water Spinal stenosis of lumbar region at multiple levels (Chronic) Tobacco abuse (Chronic) COPD (chronic obstructive pulmonary disease) with emphysema (Chronic) Medical History: Medical History (Last Reviewed 04/13/18 @ 20:49 by Zaid Patrick MD) HTN (hypertension) (Chronic) I10 Peptic ulcer (Chronic) K27.9 Bloody stool (Inactive) K92.1 Acute respiratory failure (Acute) J96.00 CAP (community acquired pneumonia) (Acute) J18.9 Epigastric pain (Chronic) R10.13 Chronic neutrophilia (Chronic) D72.828 Iron deficiency anemia following bariatric surgery (Chronic) D50.9 Osteoarthritis (Chronic) M19.90 Chest pain (Inactive) R07.9 Morbid obesity (Chronic) E66.01 Neutrophilic leukocytosis (Chronic) D72.9 Viral gastroenteritis (Inactive) A08.4 Type 2 diabetes mellitus (Chronic) E11.9 Schizophrenia (Chronic) F20.9 Hip osteoarthritis (Chronic) M16.9 with chronic pain-right hip Iron deficiency anemia due to dietary causes (Chronic) D50.8 exact cause of iron def anemia unknown-felt likely secondary to past history gastric bypass- although chronic blood loss etiology a possibility (has never had colonoscopy)-further workup including hemoccult stool is recommended Microcytic anemia (Chronic) D50.9 Morbid obesity with BMI of 45.0-49.9, adult (Chronic) E66.01, Z68.42 Pulmonary hypertension (Chronic) I27.2 Chronic narcotic use (Chronic) F11.90 Depression (Chronic) F32.9 Gastroesophageal reflux disease (Chronic) K21.9 Parathyroid abnormality (Chronic) E21.5 Vitamin D deficiency (Chronic) E55.9 Hyperlipidemia (Chronic) E78.5 History of peptic ulcer disease (Chronic) Z87.11 Thyroid nodule (Chronic) E04.1 deemed to be benign. Benign essential hypertension (Chronic) I10 CAD (coronary artery disease) (Chronic) I25.10 RACHEL (obstructive sleep apnea) (Chronic) G47.33 17/13 cm of water Spinal stenosis of lumbar region at multiple levels (Chronic) M48.06 Tobacco abuse (Chronic) Z72.0 COPD (chronic obstructive pulmonary disease) with emphysema (Chronic) J43.9 Allergies amoxicillin Allergy (Verified 04/13/18 16:04) Itching clarithromycin [From Biaxin] Allergy (Verified 04/13/18 16:04) Unknown erythromycin base Allergy (Verified 04/13/18 16:04) Unknown methadone Allergy (Verified 04/13/18 16:04) Unknown metolazone Allergy (Verified 04/13/18 16:04) Unknown Penicillins Allergy (Verified 04/13/18 16:04) Hives Sulfa (Sulfonamide Antibiotics) Allergy (Verified 04/13/18 16:04) Hives ibuprofen Adverse Reaction (Verified 04/13/18 16:04) Other morphine Adverse Reaction (Verified 04/13/18 16:04) Other Home Medications: Ambulatory Orders Medication Instructions Recorded Atorvastatin Calcium [Lipitor] 80 mg PO QHS 08/22/15 Clopidogrel Bisulfate [Plavix] 75 mg PO DAILY 08/22/15 Metoprolol(XL)Succ [Toprol Xl 25 mg PO DAILY 08/22/15 (Beta Trino)] Nitroglycerin 0.4 mg SL PRN PRN 11/08/16 Duloxetine Hcl [Cymbalta] 120 mg PO DAILY 01/16/17 amlodipine 10 mg tablet 20 mg PO DAILY tab 05/02/17 lisinopril 20 mg tablet 20 mg PO QHS #30 tab 05/02/17 potassium chloride ER 10 mEq 10 meq PO DAILY #60 tab 06/16/17 tablet,extended release(part/cryst) albuterol sulfate 2.5 mg/3 mL 2.5 mg INHALATION Q4H PRN #180 vial 11/09/17 (0.083 %) solution for nebulization Sucralfate [Carafate] 1 g PO TID 11/25/17 albuterol sulfate HFA 90 2 puff INHALATION Q4H PRN PRN #18 g 11/29/17 mcg/actuation aerosol inhaler fluticasone-salmeterol 230 mcg-21 2 puff INHALATION BID #12 g 01/15/18 mcg/actuation HFA aerosol inhaler Fluticasone 0.05% [Flonase Nasal 2 spray NASAL DAILY 02/12/18 [place]] Montelukast [Singulair] 10 mg PO QHS 03/08/18 Omeprazole 40 mg PO DAILY 03/08/18 Oxybutynin Chloride [Oxybutynin 15 mg PO DAILY 03/08/18 Chloride ER] Pregabalin [Lyrica] 75 mg PO TID 03/08/18 Risperidone 4 mg PO QHS 03/08/18 Tizanidine HCl 6 mg PO TID PRN PRN 03/08/18 traZODone [Desyrel] 200 mg PO QHS 03/08/18 tiotropium bromide 2.5 2 puff INHALATION DAILY #1 device 03/13/18 mcg/actuation mist for inhalation Buspirone HCl 30 mg PO BID 04/13/18 Oxycodone HCl/Acetaminophen 2 tablet PO Q6H PRN PRN 04/13/18 [Percocet 5/325] Surgical History: Surgical History (Last Reviewed 04/13/18 @ 20:49 by Zaid Patrick MD) History of PTCA (Chronic) Z98.61 History of appendectomy Z98.890, Z90.49 History of carpal tunnel surgery of left wrist Z98.890 History of cholecystectomy Z98.890, Z90.49 History of gastric bypass Z98.84 History of tonsillectomy Z98.890, Z90.89 history of carpal tunnel release left wrist 2018 history of right hip surgery Surgical History: appendectomy, cholecystectomy, tonsillectomy, - - Right lower extremity surgery x3 as well as bone grafting, appendectomy, cholecystectomy, gastric bypass, hernia repairs, hip replacement, tonsillectomy. Psychiatric History: Anxiety, Depression, Schizophrenia [employer] History: No pertinent [employer] history, - Lives: Alone Smoking Status: Current every day smoker - *Family History Sibling Family History: Family History (Last Reviewed 04/13/18 @ 20:49 by Zaid Patrick MD) Mother Heart disease Cancer Father Hypertension Arthritis Hyperlipemia Grandmother Breast cancer Heart disease Grandfather Heart disease History Items: Hypertension Maternal Family History: Family History (Last Reviewed 04/13/18 @ 20:49 by Zaid Patrick MD) Mother Heart disease Cancer Father Hypertension Arthritis Hyperlipemia Grandmother Breast cancer Heart disease Grandfather Heart disease History Items: Cancer, Heart Disease Paternal Family History: Family History (Last Reviewed 04/13/18 @ 20:49 by Zaid Patrick MD) Mother Heart disease Cancer Father Hypertension Arthritis Hyperlipemia Grandmother Breast cancer Heart disease Grandfather Heart disease History Items: Hypertension Review of Systems Constitutional: Denies: Chills, Fever, Weight Change HEENT: Denies: Head Aches, Sinus Congestion, Sinus Drainage Cardiovascular: Denies: Chest Pain, Palpitations Respiratory: Reports: Cough, Shortness of Breath. Denies: Sputum production Gastrointestinal: Denies: Abdominal Pain, Nausea, Vomiting Genitourinary: Denies: Dysuria Musculoskeletal: Denies: Joint Pain, Joint Tenderness Skin: Denies: Rash, Wounds Neurological: Denies: Numbness, Tingling, Focal weakness Psychiatric: Denies: Anxiety, Depression, Homicidal Ideations, Suicidal Ideations Hematologic/ Lymphatic: Denies: Easy Bruising, Easy Bleeding VTE Information - Inpt Only VTE Present on Admission: No VTE Mechan Device Prophylaxis: None VTE Pharm Prophylaxis ordered?: Yes - Physical Exam General: Alert, Oriented x3, Cooperative HEENT: Atraumatic, PERRLA, EOMI, Normocephalic Neck: Supple, No JVD, Negative Carotid Bruits Lungs: Rhonchi, Wheezes Cardiovascular: Regular rate, No murmurs Abdomen: Bowel Sounds Present, Soft, Non Tender Extremities: No edema, Capillary Refill Less than 3 Seconds, Tenderness - Left shoulder, - - Left shoulder in sling. Skin: No rashes, No breakdown Musculoskeletal: No Muscle Wasting Neurological: Neuro grossly intact Psych/Mental Status: Normal Affect, Appropriate Vital Signs Temp Pulse Resp BP Pulse Ox 99.1 F 91 22 H 103/63 93 04/13/18 19:52 04/13/18 19:52 04/13/18 19:52 04/13/18 19:11 04/13/18 19:52 Oxygen Flow Rate (L/min) 5 Oxygen Delivery Method Nasal Cannula Weight: 107.6 kg Body Mass Index (BMI) 42.0 Laboratory Tests Past 24 Hrs 04/13/18 04/13/18 16:10 16:10 WBC 13.1 H RBC 4.63 Hgb 12.7 Hct 40.0 MCV 86.4 MCH 27.4 MCHC 31.8 L RDW 20.7 H RDW Differential 65.4 H Plt Count 238 MPV 9.2 Immature Gran % (Auto) 0.300 Neut % (Auto) 68.4 Lymph % (Auto) 16.4 L [place] % (Auto) 13.2 H Eos % (Auto) 1.3 Baso % (Auto) 0.4 Absolute Neuts (auto) 9.0 H Absolute Lymphs (auto) 2.14 Total Counted Not Reportable Differential Comment SCANNED Sodium 133 L Potassium 4.3 Chloride 99 Carbon Dioxide 28.0 Anion Gap 6 BUN 6 L Creatinine 0.78 Estim Creat Clear Calc 69.79 Est GFR (MDRD) Af Amer 100 Est GFR (MDRD) Non-Af 83 BUN/Creatinine Ratio 7.7 L Glucose 108 H Calcium 9.6 Troponin I < 0.015 Assessment/Plan All Active Problems (Last Reviewed 04/13/18 @ 20:49 by Zaid Patrick MD) Acute and chronic respiratory failure with hypoxia (Acute) COPD exacerbation (Acute) Pneumonia (Resolved) Sepsis (Resolved) Acute respiratory failure (Acute) CAP (community acquired pneumonia) (Acute) Diarrhea (Resolved) Hypokalemia (Resolved) The patient is a 52 year old F with a significant history of CAD status post coronary stents; COPD; recent right shoulder tendon release and currently in sling who presented to the emergency department because of progressively worsening shortness of breath times 2 days and hypoxia consistent with acute hypoxemic respiratory failure secondary to COPD exacerbation. Acute COPD exacerbation Patient was admitted to the emergency department because of medical continued Scheduled DuoNeb and as needed albuterol. Incentive spirometry and chest physiotherapy ordered Mucinex ordered Oxygen to keep oxygen saturation more than 92% Pneumonitis Independent review of CTPA findings confirm scattered ground glass opacities in the right upper lobe and left lower lobe suggestive of mild pneumonitis/edema. Likely viral Clinical monitoring. Atelectasis Incentive Spirometer as above Right shoulder tendon Continue Sling and prn percoet Follow up outpatient. Hypertension On admission her blood pressure was within goal. Metoprolol and lisinopril continued Trend blood pressures and adjust blood pressure medication. Obstructive sleep apnea CPAP continued Tobacco abuse Counseled. Nicotine patch ordered. Neuropathy Lyrica continued CAD status post stent Stable with no chest pain Plavix continued. Lipitor continued Metoprolol and lisinopril continued Nasal congestion Flonase continued GERD Sucralfate and omeprazole continued Depression Risperidone and trazodone continued Anxiety: Buspirone continued DVT prophylaxis Subcutaneous Lovenox ordered Code Visit OBSV E&M: 73893 Initial observation care L3
[2018-04-13] MEDS: oxyCODONE 5 MG Tablet 10 MG PO (23:05)
[2018-04-13] MEDS: Pregabalin 75 MG Capsule PO (23:05)
[2018-04-13] MEDS: guaiFENesin 1,200 MG Tablet 1200 MG PO (23:06)
[2018-04-13] MEDS: Lisinopril 20 MG Tablet PO (23:06)
[2018-04-13] MEDS: busPIRone 15 MG TABLET 30 MG PO (23:06)
[2018-04-13] MEDS: RisperiDONE 2 MG Tablet 4 MG PO (23:06)
[2018-04-13] MEDS: traZODone 100 MG Tablet 200 MG PO (23:06)
[2018-04-13] MEDS: Atorvastatin Calcium 80 MG Tablet PO (23:06)
[2018-04-13] MEDS: Montelukast 10 MG Tablet PO (23:06)
[2018-04-14] VITALS (16 sets, daily range): BP systolic 103–126; BP diastolic 66–77; PULSE 72–88; RESP 12–24; TEMP 36.7–36.9; O2SAT 93–100
[2018-04-14] MEDS: Ipratropium/Albuterol Sulfate 3 ML AMPUL.NEB INHALATION ×6 (00:35→23:25)
[2018-04-14] MEDS: oxyCODONE 5 MG Tablet 10 MG PO ×3 (05:06→18:00)
[2018-04-14] MEDS: Pregabalin 75 MG Capsule PO ×3 (05:06→20:57)
[2018-04-14] MEDS: Albuterol 2.5 MG/3 ML VIAL.NEB. INHALATION (05:44)
[2018-04-14] MEDS: Sucralfate 1 GM Tablet PO ×3 (06:50→15:57)
[2018-04-14 07:31] LABS: Absolute Lymphocyte Count 0.36 X10^3/ul (0.83-4.51); Basophil# 0.01 X10^3/uL; Basophil% 0.1 % (0-1); Hematocrit 39.7 % (37-47); Hemoglobin 12.6 g/dl (12.0-15.0); Lymphocyte # 0.36 X10^3/ul (4.0); Lymphocyte % 4.2 % (19-41); Mean Corp Hgb Conc 31.7 g/gl (32-36); Mean Corpuscular Hgb 27.4 pg (27.0-32.0); Mean Corpuscular Volume 86.3 fL (81-99); Mean Platelet Vol. 9.3 fl (6.2-12.0); Monocyte# 0.17 X10^3/uL; Neutrophil # 7.95 X10^3/uL (2.7-7.7); Neutrophil % 93.6 % (47-70); Platelet Count 217 K/mm3 (150-450); RBC Distribution Width CV 20.6 % (11.6-14.6); RBC Distribution Width SD 65.2 fl (35.1-43.9); White Blood Count 8.5 K/mm3 (4.4-11.0)
[2018-04-14 07:33] LABS: Differential Indicated SCAN CRITERIA MET; POSITIVE COUNT NO; POSITIVE DIFFERENTIAL YES; POSITIVE MORPHOLOGY YES
[2018-04-14 07:50] LABS: Anion Gap 11 (5-15); BUN 7 mg/dL (7-18); BUN/Creat Ratio 7.9 RATIO (10-20); Calcium,Total 9.5 mg/dL (8.5-10.1); Chloride 99 mmol/L (98-107); Creatinine, Serum 0.88 mg/dL (0.55-1.02); EST Glomerular Filtration Rate 71 mL/min (>60); Est Glom Filt Rate - Afr Amer 86 mL/min (>60); Estimated Creatinine Clearance 61.86 ml/min; Glucose 283 mg/dL (74-106); Potassium 4.4 mmol/L (3.5-5.1); Sodium Level 134 mmol/L (136-145)
[2018-04-14 08:53] LABS: Anisocytosis 1+; Platelet Estimate ADEQUATE (ADEQ); Red Cell Morphology N CHROM NORMAL (NORM C&C)
[2018-04-14] MEDS: busPIRone 15 MG TABLET 30 MG PO ×2 (09:50→20:57)
[2018-04-14] MEDS: Tolterodine Tartrate 2 MG CAP.SA PO (09:50)
[2018-04-14] MEDS: DULoxetine Hcl 60 MG Capsule 120 MG PO (09:50)
[2018-04-14] MEDS: Fluticasone 0.05% 1 SPRAY NASAL.SRY 2 SPRAY NASAL (09:51)
[2018-04-14] MEDS: guaiFENesin 1,200 MG Tablet 1200 MG PO ×2 (09:52→20:58)
[2018-04-14] MEDS: Enoxaparin 40 MG/0.4 ML Syringe SC (09:52)
[2018-04-14] MEDS: amLODIPine 10 MG Tablet 20 MG PO (09:54)
[2018-04-14] MEDS: Clopidogrel Bisulfate 75 MG Tablet PO (09:54)
[2018-04-14] MEDS: Pantoprazole Sodium 40 MG Tablet PO (09:55)
[2018-04-14] MEDS: Metoprolol(XL)Succ 25 MG Tablet PO (09:55)
[2018-04-14] MEDS: tiZANidine HCl 2 MG Tablet 6 MG PO ×3 (10:11→23:22)
--- NOTE | 2018-04-14 11:54 | PCM.PN.HOSP ---
Subjective: Feels a little bit better today though still short of breath. No issues overnight Vitals/I&O's: Vital Signs Temp Pulse Resp BP Pulse Ox 98.0 F 87 18 126/70 H 93 04/14/18 07:40 04/14/18 09:55 04/14/18 07:46 04/14/18 07:40 04/14/18 07:40 Oxygen Flow Rate (L/min) 6 Oxygen Delivery Method Nasal Cannula Weight: 231 lb 7.766 oz Body Mass Index (BMI) 41.0 Intake and Output for Last 24 Hours 04/12/18 04/13/18 04/14/18 23:59 23:59 23:59 Intake Total 480 / 480 Balance 480 / 480 General: Alert, Oriented x3, Cooperative, No apparent distress HEENT: Atraumatic, EOMI, Normocephalic Oral: Moist Mucosa Neck: Supple, No JVD, Trachea Midline Lungs: Normal air movement, Diminished, Rhonchi, Wheezes Cardiovascular: Regular rate, Regular Rhythm, Normal S1, Normal S2, No murmurs Abdomen: Soft, Non Tender, Non-Distended, No Hepato-splenomegaly Extremities: No edema, Capillary Refill Less than 3 Seconds Skin: No rashes, No breakdown Neurological: Neuro grossly intact, Sensory exam intact to light touch and pain Psych/Mental Status: Normal Affect, Appropriate Laboratory Results 04/13/18 16:10: WBC 13.1 H, RBC 4.63, Hgb 12.7, Hct 40.0, MCV 86.4, MCH 27.4, MCHC 31.8 L, RDW 20.7 H, RDW Differential 65.4 H, Plt Count 238, MPV 9.2, Immature Gran % (Auto) 0.300, Neut % (Auto) 68.4, Lymph % (Auto) 16.4 L, [place] % (Auto) 13.2 H, Eos % (Auto) 1.3, Baso % (Auto) 0.4, Absolute Neuts (auto) 9.0 H, Absolute Lymphs (auto) 2.14, Total Counted Not Reportable, Differential Comment SCANNED 04/13/18 16:10: Sodium 133 L, Potassium 4.3, Chloride 99, Carbon Dioxide 28.0, Anion Gap 6, BUN 6 L, Creatinine 0.78, Estim Creat Clear Calc 69.79, Est GFR (MDRD) Af Amer 100, Est GFR (MDRD) Non-Af 83, BUN/Creatinine Ratio 7.7 L, Glucose 108 H, Calcium 9.6, Troponin I < 0.015 04/14/18 06:40: WBC 8.5, RBC 4.60, Hgb 12.6, Hct 39.7, MCV 86.3, MCH 27.4, MCHC 31.7 L, RDW 20.6 H, RDW Differential 65.2 H, Plt Count 217, MPV 9.3, Immature Gran % (Auto) 0.100, Neut % (Auto) 93.6 H, Lymph % (Auto) 4.2 L, [place] % (Auto) 2.0, Eos % (Auto) 0.0, Baso % (Auto) 0.1, Absolute Neuts (auto) 8.0 H, Absolute Lymphs (auto) 0.36 L, Total Counted Not Reportable, Differential Comment , Platelet Estimate ADEQUATE, RBC Morphology N CHROM, Anisocytosis 1+ 04/14/18 06:40: Sodium 134 L, Potassium 4.4, Chloride 99, Carbon Dioxide 24.0, Anion Gap 11, BUN 7, Creatinine 0.88, Estim Creat Clear Calc 61.86, Est GFR (MDRD) Af Amer 86, Est GFR (MDRD) Non-Af 71, BUN/Creatinine Ratio 7.9 L, Glucose 283 H, Calcium 9.5 Current Medications Albuterol Sulfate (Ventolin Aerosols) 2.5 mg INHALATION Q2H PRN PRN PRN Reason: SHORTNESS OF BREATH Last Admin: 04/14/18 05:44 Dose: 2.5 mg Albuterol/Ipratropium (Duoneb) 3 ml INHALATION Q4H.RT [facility] Last Admin: 04/14/18 06:37 Dose: 3 ml Amlodipine Besylate (Norvasc) 20 mg PO DAILY [facility] Last Admin: 04/14/18 09:54 Dose: 20 mg Atorvastatin Calcium (Lipitor) 80 mg PO QHS [facility] Last Admin: 04/13/18 23:06 Dose: 80 mg Buspirone HCl (Buspar) 30 mg PO BID [facility] Last Admin: 04/14/18 09:50 Dose: 30 mg Clopidogrel Bisulfate (Plavix) 75 mg PO DAILY [facility] Last Admin: 04/14/18 09:54 Dose: 75 mg Duloxetine HCl (Cymbalta) 120 mg PO DAILY [facility] Last Admin: 04/14/18 09:50 Dose: 120 mg Enoxaparin Sodium (Lovenox) 40 mg SC DAILY@1000 [facility] Last Admin: 04/14/18 09:52 Dose: 40 mg Fluticasone Propionate (Flonase Nasal [place]) 2 spray NASAL DAILY [facility] Last Admin: 04/14/18 09:51 Dose: 2 spray Guaifenesin (Mucinex) 1,200 mg PO BID [facility] Last Admin: 04/14/18 09:52 Dose: 1,200 mg Sodium Chloride () 250 mls @ 15 mls/hr IV .[id number] PRN PRN Reason: SALINE FLUSH Lisinopril (Zestril) 20 mg PO QHS [facility] Last Admin: 04/13/18 23:06 Dose: 20 mg Magnesium Hydroxide (Milk Of Magnesia) 30 ml PO DAILY PRN PRN PRN Reason: Constipation Methylprednisolone (Solu-Medrol) 40 mg IV Q8 [facility] Last Admin: 04/14/18 05:06 Dose: 40 mg Metoprolol Succinate (Toprol Xl (Beta Trino)) 25 mg PO DAILY [facility] Last Admin: 04/14/18 09:55 Dose: 25 mg Montelukast Sodium (Singulair) 10 mg PO QHS [facility] Last Admin: 04/13/18 23:06 Dose: 10 mg Nicotine (Nicoderm Cq (Pbkc)) 21 mg TRANSDERM. DAILY [facility] Last Admin: 04/14/18 09:53 Dose: 21 mg Ondansetron HCl (Zofran) 4 mg IV Q8H PRN PRN PRN Reason: NAUSEA Oxycodone HCl (Oxyir) 10 mg PO Q6H PRN PRN PRN Reason: PAIN Last Admin: 04/14/18 11:07 Dose: 10 mg Pantoprazole Sodium (Protonix) 40 mg PO DAILY [facility] Last Admin: 04/14/18 09:55 Dose: 40 mg Potassium [facility]Dur[facility] Last Admin: 04/14/18 07:53 Dose: 10 meq Pregabalin (Lyrica) 75 mg PO TID [facility] Last Admin: 04/14/18 05:06 Dose: 75 mg Risperidone (Risperdal) 4 mg PO QHS [facility] Last Admin: 04/13/18 23:06 Dose: 4 mg Sodium Chloride () 5 - 15 ml IV UD PRN PRN Reason: SALINE FLUSH Sucralfate (Carafate) 1 gm PO TID@0700,1100,1600 [facility] Last Admin: 04/14/18 09:56 Dose: 1 gm Tizanidine HCl (Zanaflex) 6 mg PO TID PRN PRN PRN Reason: SPASMS Last Admin: 04/14/18 10:11 Dose: 6 mg Tolterodine Tartrate (Detrol La) 2 mg PO DAILY [facility] Last Admin: 04/14/18 09:50 Dose: 2 mg Trazodone HCl (Desyrel) 200 mg PO QHS [facility] Last Admin: 04/13/18 23:06 Dose: 200 mg Medical Necessity - Tobacco Use Smoking Status: Current every day smoker Tobacco Use: Cigarettes Assessment/Plan All Active Problems (Last Reviewed 04/13/18 @ 20:49 by Zaid Patrick MD) Acute and chronic respiratory failure with hypoxia (Acute) COPD exacerbation (Acute) Pneumonia (Resolved) Sepsis (Resolved) Acute respiratory failure (Acute) CAP (community acquired pneumonia) (Acute) Diarrhea (Resolved) Hypokalemia (Resolved) 1. Acute hypoxic respiratory failure secondary to COPD exacerbation/RACHEL -Continue with oxygen wean as able -Continue with IV steroids and inhaler treatments -CTA with pneumonitis will discontinue to monitor if she deteriorates with fevers will initiate antibiotics -Continue with home CPAP 2. CAD status post stent/HTN -Continue with Lipitor, Plavix, metoprolol, and lisinopril -Vital signs are stable 3. GERD -Stable -Continue with home PPI and Carafate 4. Depression/anxiety -Currently stable -continue with home medications 5. Neuropathy of unknown etiology -Continue with home Lyrica -Appears to be stable DVT: Lovenox Code Visit OBSV E&M: 24640 Subsequent observation care L2
--- NOTE | 2018-04-14 12:02 | PN_ITS ---
Subjective: Feels a little bit better today though still short of breath. No issues overnight Vitals/I&O's: Vital Signs Temp Pulse Resp BP Pulse Ox 98.0 F 87 18 126/70 H 93 04/14/18 07:40 04/14/18 09:55 04/14/18 07:46 04/14/18 07:40 04/14/18 07:40 Oxygen Flow Rate (L/min) 6 Oxygen Delivery Method Nasal Cannula Weight: 231 lb 7.766 oz Body Mass Index (BMI) 41.0 Intake and Output for Last 24 Hours 04/12/18 04/13/18 04/14/18 23:59 23:59 23:59 Intake Total 480 / 480 Balance 480 / 480 General: Alert, Oriented x3, Cooperative, No apparent distress HEENT: Atraumatic, EOMI, Normocephalic Oral: Moist Mucosa Neck: Supple, No JVD, Trachea Midline Lungs: Normal air movement, Diminished, Rhonchi, Wheezes Cardiovascular: Regular rate, Regular Rhythm, Normal S1, Normal S2, No murmurs Abdomen: Soft, Non Tender, Non-Distended, No Hepato-splenomegaly Extremities: No edema, Capillary Refill Less than 3 Seconds Skin: No rashes, No breakdown Neurological: Neuro grossly intact, Sensory exam intact to light touch and pain Psych/Mental Status: Normal Affect, Appropriate Laboratory Results 04/13/18 16:10: WBC 13.1 H, RBC 4.63, Hgb 12.7, Hct 40.0, MCV 86.4, MCH 27.4, MCHC 31.8 L, RDW 20.7 H, RDW Differential 65.4 H, Plt Count 238, MPV 9.2, Immature Gran % (Auto) 0.300, Neut % (Auto) 68.4, Lymph % (Auto) 16.4 L, [place] % (Auto) 13.2 H, Eos % (Auto) 1.3, Baso % (Auto) 0.4, Absolute Neuts (auto) 9.0 H, Absolute Lymphs (auto) 2.14, Total Counted Not Reportable, Differential Comment SCANNED 04/13/18 16:10: Sodium 133 L, Potassium 4.3, Chloride 99, Carbon Dioxide 28.0, Anion Gap 6, BUN 6 L, Creatinine 0.78, Estim Creat Clear Calc 69.79, Est GFR (MDRD) Af Amer 100, Est GFR (MDRD) Non-Af 83, BUN/Creatinine Ratio 7.7 L, Glucose 108 H, Calcium 9.6, Troponin I < 0.015 04/14/18 06:40: WBC 8.5, RBC 4.60, Hgb 12.6, Hct 39.7, MCV 86.3, MCH 27.4, MCHC 31.7 L, RDW 20.6 H, RDW Differential 65.2 H, Plt Count 217, MPV 9.3, Immature Gran % (Auto) 0.100, Neut % (Auto) 93.6 H, Lymph % (Auto) 4.2 L, [place] % (Auto) 2.0, Eos % (Auto) 0.0, Baso % (Auto) 0.1, Absolute Neuts (auto) 8.0 H, Absolute Lymphs (auto) 0.36 L, Total Counted Not Reportable, Differential Comment , Platelet Estimate ADEQUATE, RBC Morphology N CHROM, Anisocytosis 1+ 04/14/18 06:40: Sodium 134 L, Potassium 4.4, Chloride 99, Carbon Dioxide 24.0, Anion Gap 11, BUN 7, Creatinine 0.88, Estim Creat Clear Calc 61.86, Est GFR (MDRD) Af Amer 86, Est GFR (MDRD) Non-Af 71, BUN/Creatinine Ratio 7.9 L, Glucose 283 H, Calcium 9.5 Current Medications Albuterol Sulfate (Ventolin Aerosols) 2.5 mg INHALATION Q2H PRN PRN PRN Reason: SHORTNESS OF BREATH Last Admin: 04/14/18 05:44 Dose: 2.5 mg Albuterol/Ipratropium (Duoneb) 3 ml INHALATION Q4H.RT [facility] Last Admin: 04/14/18 06:37 Dose: 3 ml Amlodipine Besylate (Norvasc) 20 mg PO DAILY [facility] Last Admin: 04/14/18 09:54 Dose: 20 mg Atorvastatin Calcium (Lipitor) 80 mg PO QHS [facility] Last Admin: 04/13/18 23:06 Dose: 80 mg Buspirone HCl (Buspar) 30 mg PO BID [facility] Last Admin: 04/14/18 09:50 Dose: 30 mg Clopidogrel Bisulfate (Plavix) 75 mg PO DAILY [facility] Last Admin: 04/14/18 09:54 Dose: 75 mg Duloxetine HCl (Cymbalta) 120 mg PO DAILY [facility] Last Admin: 04/14/18 09:50 Dose: 120 mg Enoxaparin Sodium (Lovenox) 40 mg SC DAILY@1000 [facility] Last Admin: 04/14/18 09:52 Dose: 40 mg Fluticasone Propionate (Flonase Nasal [place]) 2 spray NASAL DAILY [facility] Last Admin: 04/14/18 09:51 Dose: 2 spray Guaifenesin (Mucinex) 1,200 mg PO BID [facility] Last Admin: 04/14/18 09:52 Dose: 1,200 mg Sodium Chloride () 250 mls @ 15 mls/hr IV .[id number] PRN PRN Reason: SALINE FLUSH Lisinopril (Zestril) 20 mg PO QHS [facility] Last Admin: 04/13/18 23:06 Dose: 20 mg Magnesium Hydroxide (Milk Of Magnesia) 30 ml PO DAILY PRN PRN PRN Reason: Constipation Methylprednisolone (Solu-Medrol) 40 mg IV Q8 [facility] Last Admin: 04/14/18 05:06 Dose: 40 mg Metoprolol Succinate (Toprol Xl (Beta Trino)) 25 mg PO DAILY [facility] Last Admin: 04/14/18 09:55 Dose: 25 mg Montelukast Sodium (Singulair) 10 mg PO QHS [facility] Last Admin: 04/13/18 23:06 Dose: 10 mg Nicotine (Nicoderm Cq (Pbkc)) 21 mg TRANSDERM. DAILY [facility] Last Admin: 04/14/18 09:53 Dose: 21 mg Ondansetron HCl (Zofran) 4 mg IV Q8H PRN PRN PRN Reason: NAUSEA Oxycodone HCl (Oxyir) 10 mg PO Q6H PRN PRN PRN Reason: PAIN Last Admin: 04/14/18 11:07 Dose: 10 mg Pantoprazole Sodium (Protonix) 40 mg PO DAILY [facility] Last Admin: 04/14/18 09:55 Dose: 40 mg [facility] Admin: 04/14/18 07:53 Dose: 10 meq Pregabalin (Lyrica) 75 mg PO TID [facility] Last Admin: 04/14/18 05:06 Dose: 75 mg Risperidone (Risperdal) 4 mg PO QHS [facility] Last Admin: 04/13/18 23:06 Dose: 4 mg Sodium Chloride () 5 - 15 ml IV UD PRN PRN Reason: SALINE FLUSH Sucralfate (Carafate) 1 gm PO TID@0700,1100,1600 [facility] Last Admin: 04/14/18 09:56 Dose: 1 gm Tizanidine HCl (Zanaflex) 6 mg PO TID PRN PRN PRN Reason: SPASMS Last Admin: 04/14/18 10:11 Dose: 6 mg Tolterodine Tartrate (Detrol La) 2 mg PO DAILY [facility] Last Admin: 04/14/18 09:50 Dose: 2 mg Trazodone HCl (Desyrel) 200 mg PO QHS [facility] Last Admin: 04/13/18 23:06 Dose: 200 mg Medical Necessity - Tobacco Use Smoking Status: Current every day smoker Tobacco Use: Cigarettes Assessment/Plan All Active Problems (Last Reviewed 04/13/18 @ 20:49 by Zaid Patrick MD) Acute and chronic respiratory failure with hypoxia (Acute) COPD exacerbation (Acute) Pneumonia (Resolved) Sepsis (Resolved) Acute respiratory failure (Acute) CAP (community acquired pneumonia) (Acute) Diarrhea (Resolved) Hypokalemia (Resolved) 1. Acute hypoxic respiratory failure secondary to COPD exacerbation/RACHEL -Continue with oxygen wean as able -Continue with IV steroids and inhaler treatments -CTA with pneumonitis will discontinue to monitor if she deteriorates with fevers will initiate antibiotics -Continue with home CPAP 2. CAD status post stent/HTN -Continue with Lipitor, Plavix, metoprolol, and lisinopril -Vital signs are stable 3. GERD -Stable -Continue with home PPI and Carafate 4. Depression/anxiety -Currently stable -continue with home medications 5. Neuropathy of unknown etiology -Continue with home Lyrica -Appears to be stable DVT: Lovenox Code Visit OBSV E&M: 37845 Subsequent observation care L2
--- NOTE | 2018-04-14 13:12 | CASEMGMT ---
LW/POA forms in echart. SW printed and placed on chart. SUSSY East, PROJECT MANAGEMENT ANALYST
[2018-04-14] MEDS: 0.9% NaCl Peripheral Flush Adult/Peds IV ×2 (13:33→21:01)
--- NOTE | 2018-04-14 15:59 | CM.UR ---
PAMELA ALVAREZ Face to Face with patient for initial transition planning/care coordination assessment. PAMELA ALVAREZ introduced self and role at [facility]. Patient lying in bed, alert and oriented. Patient willing to participate in assessment and is able to answer all questions appropriately. Care providers, pharmacy, and demographics verified. Patient wishes to discharge home. PCP: Claudia Specialists: Case material worker Preferred Pharmacy: [facility] Insurance: [employer] [facility] Prescription Benefit: yes Living Will/HPOA: Yes sister Jessica Payan LNOK: sister Living Arrangements: Patient lives alone in 5th floor apt with elevator to enter apartment. Patient independent at home. Transportation: Self/taxi DME/HHC: Patient has rollator, cane, shower chair, raised toilet seat, grab bars, Oxygen at 3lpm from [employer], BiPap, nebulizer at home. Patient has had [facility]HC in past. Patient has been to [facility] x4 Patient is asking for ENGINEER SERGEANT assistance at this time. Placed consult for to discuss if eligible for waiver. Disposition Plan: Patient to discharge home. Cecily River RN, CCM.
[2018-04-14] MEDS: traZODone 100 MG Tablet 200 MG PO (20:56)
[2018-04-14] MEDS: Atorvastatin Calcium 80 MG Tablet PO (20:59)
[2018-04-14] MEDS: Montelukast 10 MG Tablet PO (20:59)
[2018-04-14] MEDS: RisperiDONE 2 MG Tablet 4 MG PO (21:00)
[2018-04-14] MEDS: Lisinopril 20 MG Tablet PO (21:00)
[2018-04-15] MEDS: oxyCODONE 5 MG Tablet 10 MG PO ×2 (00:12→07:01)
[2018-04-15 02:48] VITALS: BP 111/58; PULSE 62; RESP 16; TEMP 37; O2SAT 98
[2018-04-15] MEDS: Ipratropium/Albuterol Sulfate 3 ML AMPUL.NEB INHALATION ×2 (03:09→07:40)
[2018-04-15 03:10] VITALS: PULSE 63; PULSE 66; RESP 12; RESP 16; RESP 18; O2SAT 96
[2018-04-15] MEDS: Pregabalin 75 MG Capsule PO (06:55)
[2018-04-15] MEDS: Sucralfate 1 GM Tablet PO (06:56)
--- NOTE | 2018-04-15 07:04 | PN_ITS ---
Subjective: No events overnight, tolerating her CPAP. She does state that she is back to her baseline. Vitals/I&O's: Vital Signs Temp Pulse Resp BP Pulse Ox 98.6 F 66 18 111/58 L 96 04/15/18 02:48 04/15/18 03:10 04/15/18 03:10 04/15/18 02:48 04/15/18 03:10 Oxygen Flow Rate (L/min) 4.5 Oxygen Delivery Method CPAP Weight: 231 lb 7.766 oz Body Mass Index (BMI) 41.0 Intake and Output for Last 24 Hours 04/13/18 04/14/18 04/15/18 23:59 23:59 23:59 Intake Total 480 / 480 750 / 750 Balance 480 / 480 750 / 750 General: Alert, Oriented x3, Cooperative, No apparent distress HEENT: Atraumatic, EOMI, Normocephalic Oral: Moist Mucosa Neck: Supple, No JVD, Trachea Midline Lungs: Normal air movement, Diminished, no Rhonchi, no Wheezes Cardiovascular: Regular rate, Regular Rhythm, Normal S1, Normal S2, No murmurs Abdomen: Soft, Non Tender, Non-Distended, No Hepato-splenomegaly Extremities: No edema, Capillary Refill Less than 3 Seconds Skin: No rashes, No breakdown Neurological: Neuro grossly intact, Sensory exam intact to light touch and pain Psych/Mental Status: Normal Affect, Appropriate Laboratory Results 04/14/18 06:40: WBC 8.5, RBC 4.60, Hgb 12.6, Hct 39.7, MCV 86.3, MCH 27.4, MCHC 31.7 L, RDW 20.6 H, RDW Differential 65.2 H, Plt Count 217, MPV 9.3, Immature Gran % (Auto) 0.100, Neut % (Auto) 93.6 H, Lymph % (Auto) 4.2 L, [place] % (Auto) 2.0, Eos % (Auto) 0.0, Baso % (Auto) 0.1, Absolute Neuts (auto) 8.0 H, Absolute Lymphs (auto) 0.36 L, Total Counted Not Reportable, Differential Comment , Platelet Estimate ADEQUATE, RBC Morphology N CHROM, Anisocytosis 1+ 04/14/18 06:40: Sodium 134 L, Potassium 4.4, Chloride 99, Carbon Dioxide 24.0, Anion Gap 11, BUN 7, Creatinine 0.88, Estim Creat Clear Calc 61.86, Est GFR (MDRD) Af Amer 86, Est GFR (MDRD) Non-Af 71, BUN/Creatinine Ratio 7.9 L, Glucose 283 H, Calcium 9.5 Current Medications Albuterol Sulfate (Ventolin Aerosols) 2.5 mg INHALATION Q2H PRN PRN PRN Reason: SHORTNESS OF BREATH Last Admin: 04/14/18 05:44 Dose: 2.5 mg Albuterol/Ipratropium (Duoneb) 3 ml INHALATION Q4H.RT [facility] Last Admin: 04/15/18 03:09 Dose: 3 ml Amlodipine Besylate (Norvasc) 20 mg PO DAILY [facility] Last Admin: 04/14/18 09:54 Dose: 20 mg Atorvastatin Calcium (Lipitor) 80 mg PO QHS [facility] Last Admin: 04/14/18 20:59 Dose: 80 mg Buspirone HCl (Buspar) 30 mg PO BID [facility] Last Admin: 04/14/18 20:57 Dose: 30 mg Clopidogrel Bisulfate (Plavix) 75 mg PO DAILY [facility] Last Admin: 04/14/18 09:54 Dose: 75 mg Duloxetine HCl (Cymbalta) 120 mg PO DAILY [facility] Last Admin: 04/14/18 09:50 Dose: 120 mg Enoxaparin Sodium (Lovenox) 40 mg SC DAILY@1000 [facility] Last Admin: 04/14/18 09:52 Dose: 40 mg Fluticasone Propionate (Flonase Nasal [place]) 2 spray NASAL DAILY [facility] Last Admin: 04/14/18 09:51 Dose: 2 spray Guaifenesin (Mucinex) 1,200 mg PO BID [facility] Last Admin: 04/14/18 20:58 Dose: 1,200 mg Sodium Chloride () 250 mls @ 15 mls/hr IV .[id number] PRN PRN Reason: SALINE FLUSH Lisinopril (Zestril) 20 mg PO QHS [facility] Last Admin: 04/14/18 21:00 Dose: 20 mg Magnesium Hydroxide (Milk Of Magnesia) 30 ml PO DAILY PRN PRN PRN Reason: Constipation Methylprednisolone (Solu-Medrol) 40 mg IV Q8 [facility] Last Admin: 04/15/18 06:56 Dose: 40 mg Metoprolol Succinate (Toprol Xl (Beta Trino)) 25 mg PO DAILY [facility] Last Admin: 04/14/18 09:55 Dose: 25 mg Montelukast Sodium (Singulair) 10 mg PO QHS [facility] Last Admin: 04/14/18 20:59 Dose: 10 mg Nicotine (Nicoderm Cq (Pbkc)) 21 mg TRANSDERM. DAILY [facility] Last Admin: 04/14/18 09:53 Dose: 21 mg Ondansetron HCl (Zofran) 4 mg IV Q8H PRN PRN PRN Reason: NAUSEA Oxycodone HCl (Oxyir) 10 mg PO Q6H PRN PRN PRN Reason: PAIN Last Admin: 04/15/18 07:01 Dose: 10 mg Pantoprazole Sodium (Protonix) 40 mg PO DAILY [facility] Last Admin: 04/14/18 09:55 Dose: 40 mg Potassium [facility] ([facility] Last Admin: 04/14/18 07:53 Dose: 10 meq Pregabalin (Lyrica) 75 mg PO TID [facility] Last Admin: 04/15/18 06:55 Dose: 75 mg Risperidone (Risperdal) 4 mg PO QHS [facility] Last Admin: 04/14/18 21:00 Dose: 4 mg Sodium Chloride () 5 - 15 ml IV UD PRN PRN Reason: SALINE FLUSH Last Admin: 04/14/18 21:01 Dose: 10 ml Sucralfate (Carafate) 1 gm PO TID@0700,1100,1600 [facility] Last Admin: 04/15/18 06:56 Dose: 1 gm Tizanidine HCl (Zanaflex) 6 mg PO TID PRN PRN PRN Reason: SPASMS Last Admin: 04/14/18 23:22 Dose: 6 mg Tolterodine Tartrate (Detrol La) 2 mg PO DAILY [facility] Last Admin: 04/14/18 09:50 Dose: 2 mg Trazodone HCl (Desyrel) 200 mg PO QHS [facility] Last Admin: 04/14/18 20:56 Dose: 200 mg Medical Necessity - Tobacco Use Smoking Status: Current every day smoker Tobacco Use: Cigarettes Assessment/Plan All Active Problems (Last Reviewed 04/13/18 @ 20:49 by Zaid Patrick MD) Acute and chronic respiratory failure with hypoxia (Acute) COPD exacerbation (Acute) Pneumonia (Resolved) Sepsis (Resolved) Acute respiratory failure (Acute) CAP (community acquired pneumonia) (Acute) Diarrhea (Resolved) Hypokalemia (Resolved) 1. Acute hypoxic respiratory failure secondary to COPD exacerbation/RACHEL -Continue with oxygen she is to wear a baseline of 3L NC during the day -Continue with IV steroids and inhaler treatments -CTA with pneumonitis however she remains afebrile -Continue with home CPAP at [facility] 2. CAD status post stent/HTN -Continue with Lipitor, Plavix, metoprolol, and lisinopril -Vital signs are stable 3. GERD -Stable -Continue with home PPI and Carafate 4. Depression/anxiety -Currently stable -continue with home medications 5. Neuropathy of unknown etiology -Continue with home Lyrica -Appears to be stable DVT: Lovenox Code Visit Inpatient E&M: 02790 Subs Hosp L2
[2018-04-15 07:40] VITALS: PULSE 67; RESP 14; O2SAT 98
[2018-04-15 08:04] VITALS: BP 117/63; PULSE 67; RESP 18; TEMP 36.7; O2SAT 97
[2018-04-15 08:08] VITALS: RESP 18
[2018-04-15] MEDS: tiZANidine HCl 2 MG Tablet 6 MG PO (08:20)
--- NOTE | 2018-04-15 10:33 | DCINST_ITS ---
You will use the following diet at home:: Calorie/Carbohydrate Controlled (specify 1200, 1400, etc), Cardiac Your food should be the consistency of: Regular Your liquids should be the consistency of: Regular/Thin Discharge Activity: No Restrictions Call your doctor if you observe: Fever of 101 or Higher, Shortness of breath, Dizziness, Fainting spells, Chest pain, Increased palpitations (irregular heartbeat) Allergies/Adverse Reactions: Allergies amoxicillin Allergy (Verified 04/13/18 21:50) Itching clarithromycin [From Biaxin] Allergy (Verified 04/13/18 21:50) Unknown erythromycin base Allergy (Verified 04/13/18 21:50) Unknown methadone Allergy (Verified 04/13/18 21:50) Itching metolazone Allergy (Verified 04/13/18 21:50) Unknown Penicillins Allergy (Verified 04/13/18 21:50) Hives Sulfa (Sulfonamide Antibiotics) Allergy (Verified 04/13/18 21:50) Hives ibuprofen Adverse Reaction (Verified 04/13/18 21:50) Other morphine Adverse Reaction (Verified 04/13/18 21:50) Other Medications to take at Discharge Atorvastatin Calcium [Lipitor] 80 mg PO QHS 08/22/15 Clopidogrel Bisulfate [Plavix] 75 mg PO DAILY 08/22/15 Metoprolol(XL)Succ [Toprol Xl (Beta Trino)] 25 mg PO DAILY 08/22/15 Nitroglycerin 0.4 mg SL PRN PRN 11/08/16 Duloxetine Hcl [Cymbalta] 120 mg PO DAILY 01/16/17 amlodipine 10 mg tablet 20 mg PO DAILY tab 05/02/17 lisinopril 20 mg tablet 20 mg PO QHS #30 tab 05/02/17 potassium chloride ER 10 mEq tablet,extended release(part/cryst) 10 meq PO DAILY #60 tab 06/16/17 albuterol sulfate 2.5 mg/3 mL (0.083 %) solution for nebulization 2.5 mg INHALATION Q4H PRN #180 vial 11/09/17 Sucralfate [Carafate] 1 g PO TID 11/25/17 albuterol sulfate HFA 90 mcg/actuation aerosol inhaler 2 puff INHALATION Q4H PRN PRN #18 g 11/29/17 fluticasone-salmeterol 230 mcg-21 mcg/actuation HFA aerosol inhaler 2 puff INHALATION BID #12 g 01/15/18 Fluticasone 0.05% [Flonase Nasal [employer]] 2 spray NASAL DAILY 02/12/18 Montelukast [Singulair] 10 mg PO QHS 03/08/18 Omeprazole 40 mg PO DAILY 03/08/18 Oxybutynin Chloride [Oxybutynin Chloride ER] 15 mg PO DAILY 03/08/18 Pregabalin [Lyrica] 75 mg PO TID 03/08/18 Risperidone 4 mg PO QHS 03/08/18 Tizanidine HCl 6 mg PO TID PRN PRN 03/08/18 traZODone [Desyrel] 200 mg PO QHS 03/08/18 tiotropium bromide 2.5 mcg/actuation mist for inhalation 2 puff INHALATION DAILY #1 device 03/13/18 Buspirone HCl 30 mg PO BID 04/13/18 Oxycodone HCl/Acetaminophen [Percocet 5-325] 2 tablet PO Q6H PRN PRN 04/13/18 Prednisone [Deltasone] 40 mg PO DAILY #10 tablet 04/15/18 The following prescriptions were given: Prednisone [Deltasone] 40 mg PO DAILY #10 tablet Primary Care Physician: Janel Taylor MD [Primary Care Provider] - Please follow up with your Primary Care Physician in: 04/19/2018 Test Results: Test results from this visit will be discussed in further detail at your follow- up appointment, if applicable.
--- NOTE | 2018-04-15 12:26 | DS.PCM_ITS ---
Discharge Date and Diagnosis Date of Admission: 04/13/18 Date of Discharge: 04/15/18 - Secondary Discharge Diagnosis Chronic Problems (Last Reviewed 04/13/18 @ 20:49 by Zaid Patrick MD) Iron deficiency (Chronic) Stage 2 moderate COPD by GOLD classification (Chronic) HTN (hypertension) (Chronic) Peptic ulcer (Chronic) Epigastric pain (Chronic) Chronic neutrophilia (Chronic) Iron deficiency anemia following bariatric surgery (Chronic) Osteoarthritis (Chronic) Morbid obesity (Chronic) Neutrophilic leukocytosis (Chronic) Type 2 diabetes mellitus (Chronic) Schizophrenia (Chronic) Hip osteoarthritis (Chronic) with chronic pain-right hip Iron deficiency anemia due to dietary causes (Chronic) exact cause of iron def anemia unknown-felt likely secondary to past history gastric bypass- although chronic blood loss etiology a possibility (has never had colonoscopy)-further workup including hemoccult stool is recommended Microcytic anemia (Chronic) Morbid obesity with BMI of 45.0-49.9, adult (Chronic) Pulmonary hypertension (Chronic) Chronic narcotic use (Chronic) Depression (Chronic) Gastroesophageal reflux disease (Chronic) Parathyroid abnormality (Chronic) History of PTCA (Chronic) Vitamin D deficiency (Chronic) Hyperlipidemia (Chronic) History of peptic ulcer disease (Chronic) Thyroid nodule (Chronic) deemed to be benign. Benign essential hypertension (Chronic) CAD (coronary artery disease) (Chronic) RACHEL (obstructive sleep apnea) (Chronic) 17/13 cm of water Spinal stenosis of lumbar region at multiple levels (Chronic) Tobacco abuse (Chronic) COPD (chronic obstructive pulmonary disease) with emphysema (Chronic) Hospital Course and Treatment Imaging Results: CXR: IMPRESSION: 1. No central or obvious segmental pulmonary embolism. Exam quality limited by patient respiratory motion. 2. Scattered groundglass opacities in the right upper lobe and left lower lobe can suggest mild pneumonitis/edema. 3. Mild atelectasis. 4. Additional stable chronic changes, as above. Consults: None Operations: None, total hip replacement Procedures: None Summary of Care Provided: Per HPI: The patient is a 52 year old F with a significant history of CAD status post coronary stents; COPD on 3L home oxygen; 2 packs/day tobacco abuse; recent right shoulder tendon release and currently in sling who presented to the emergency department because of progressively worsening shortness of breath x 2 days. Associated with her symptoms is wheezing and coughing. When the paramedics got to her home she was 81% on on 3 L. She was given a breathing treatment and brought to the hospital. At the hospital on 3 L her oxygen saturation was 80%. Because patient had a recent shoulder surgery CTPA was done. CTPA showed scattered ground glass opacities in the right upper lobe and left lower lobe suggestive of mild pneumonitis/edema; as well as mild atelectasis. Hospital Course: 1. Acute hypoxic respiratory failure secondary to COPD exacerbation/RACHEL- She was started on increased oxygen therapy from her baseline of 3 L NC which she returned to on the day of discharge. She was tolerating the breathing treatments and the steroids and improved significantly by day of discharge. She will need to f/u with her PCP on 04/19/2018. Continue prednisone 40 mg daily for 5 days. She has been afebrile without any signs of pneumonia. 2. Her other medical diagnoses were evaluated and her home medications were continued where appropriate - Physical Exam Vital Signs Temp Pulse Resp BP Pulse Ox 98.0 F 67 18 117/63 97 04/15/18 08:04 04/15/18 08:04 04/15/18 08:08 04/15/18 08:04 04/15/18 08:04 Oxygen Flow Rate (L/min) 3 Oxygen Delivery Method Nasal Cannula Weight: 231 lb 7.766 oz Body Mass Index (BMI) 41.0 Intake and Output for Last 24 Hours 04/13/18 04/14/18 04/15/18 23:59 23:59 23:59 Intake Total 480 / 480 750 / 750 Balance 480 / 480 750 / 750 Discharge Activity: No Restrictions Call your doctor if you observe: Fever of 101 or Higher, Shortness of breath, Dizziness, Fainting spells, Chest pain, Increased palpitations (irregular heartbeat) Home Medications: Medications to take at Discharge Atorvastatin Calcium [Lipitor] 80 mg PO QHS 08/22/15 Clopidogrel Bisulfate [Plavix] 75 mg PO DAILY 08/22/15 Metoprolol(XL)Succ [Toprol Xl (Beta Trino)] 25 mg PO DAILY 08/22/15 Nitroglycerin 0.4 mg SL PRN PRN 11/08/16 Duloxetine Hcl [Cymbalta] 120 mg PO DAILY 01/16/17 amlodipine 10 mg tablet 20 mg PO DAILY tab 05/02/17 lisinopril 20 mg tablet 20 mg PO QHS #30 tab 05/02/17 potassium chloride ER 10 mEq tablet,extended release(part/cryst) 10 meq PO DAILY #60 tab 06/16/17 albuterol sulfate 2.5 mg/3 mL (0.083 %) solution for nebulization 2.5 mg INHALATION Q4H PRN #180 vial 11/09/17 Sucralfate [Carafate] 1 g PO TID 11/25/17 albuterol sulfate HFA 90 mcg/actuation aerosol inhaler 2 puff INHALATION Q4H PRN PRN #18 g 11/29/17 fluticasone-salmeterol 230 mcg-21 mcg/actuation HFA aerosol inhaler 2 puff INHALATION BID #12 g 01/15/18 Fluticasone 0.05% [Flonase Nasal [place]] 2 spray NASAL DAILY 02/12/18 Montelukast [Singulair] 10 mg PO QHS 03/08/18 Omeprazole 40 mg PO DAILY 03/08/18 Oxybutynin Chloride [Oxybutynin Chloride ER] 15 mg PO DAILY 03/08/18 Pregabalin [Lyrica] 75 mg PO TID 03/08/18 Risperidone 4 mg PO QHS 03/08/18 Tizanidine HCl 6 mg PO TID PRN PRN 03/08/18 traZODone [Desyrel] 200 mg PO QHS 03/08/18 tiotropium bromide 2.5 mcg/actuation mist for inhalation 2 puff INHALATION DAILY #1 device 03/13/18 Buspirone HCl 30 mg PO BID 04/13/18 Oxycodone HCl/Acetaminophen [Percocet 5-325] 2 tablet PO Q6H PRN PRN 04/13/18 Prednisone [Deltasone] 40 mg PO DAILY #10 tablet 04/15/18 Following Prescrptions Were Given to Patient: Prednisone [Deltasone] 40 mg PO DAILY #10 tablet Primary Care Physician: Janel Taylor MD [Primary Care Provider] - Please follow up with your Primary Care Physician in: 04/19/2018 Disposition: Home Minutes spent on discharge:: 35 Patient Condition:: Stable Medical Necessity - Tobacco Use Smoking Status: Current every day smoker Tobacco Use: Cigarettes Meaningful Use Info Meaningful Use Diagnoses (Choose all that apply): None applicable Code Visit OBSV E&M: 84927 Observation care discharge
== END 2018-04-15 11:00 | disposition home or self-care (01) ==
LOC: ED 18:30 → MS3 21:05
PROVIDERS: Admitting Provider Hospitalist; Emergency Provider Emergency Medicine; Family Provider Family Medicine; PCP Family Medicine; Visit Provider Family Medicine
DX: J44.1 Chronic obstructive pulmonary disease with (acute) exacerbation (principal); G47.33 Obstructive sleep apnea (adult) (pediatric); J96.21 Acute and chronic respiratory failure with hypoxia; I10 Essential (primary) hypertension; D50.8 Other iron deficiency anemias; E66.01 Morbid (severe) obesity due to excess calories; M19.90 Unspecified osteoarthritis, unspecified site; G89.29 Other chronic pain; I27.20 Pulmonary hypertension, unspecified; I25.10 Atherosclerotic heart disease of native coronary artery without angina pectoris; E78.5 Hyperlipidemia, unspecified; M48.061 Spinal stenosis, lumbar region without neurogenic claudication; F20.9 Schizophrenia, unspecified; F41.9 Anxiety disorder, unspecified; F17.210 Nicotine dependence, cigarettes, uncomplicated; Z99.81 Dependence on supplemental oxygen; Z79.02 Long term (current) use of antithrombotics/antiplatelets; Z79.899 Other long term (current) drug therapy; Z87.11 Personal history of peptic ulcer disease; Z98.84 Bariatric surgery status; Z68.41 Body mass index [BMI] 40.0-44.9, adult; Z71.3 Dietary counseling and surveillance; E11.40 Type 2 diabetes mellitus with diabetic neuropathy, unspecified
CPT/HCPCS: 36415; 71275; 80048; 84484; 85025; 93005; 94002; 94003; 94640; 94667; 94668; 96372; 96374; 96376; 97161; 97166; 97802; 99218; 99285; 99406; Q9967; A4216; G0378

== ENCOUNTER → 2018-04-26 13:53 | Outpatient (CLI) | payer MEDICARE, SELFPAY ==
[2018-04-13 21:55] VITALS: BMI 41.0
--- NOTE | 2018-04-26 13:57 | RAD_ITS ---
STUDY: X-RAY - SACRUM/COCCYX REASON FOR EXAM: Female, 52 years old. Fall 4 weeks ago, tailbone injury TECHNIQUE: 3 view(s) of the sacrum and coccyx were obtained. COMPARISON: CT pelvis from 09/28/2016 FINDINGS: Normal bilateral sacroiliac joints. Normal visualized sacral ala and fused sacral bodies. Normal sacrococcygeal junction with a normal angulation. There is demineralization of the coccygeal segments. Mild sclerosis and cortical irregularity of the first coccygeal segment with posterior subluxation of the inferior coccygeal fragment new since the prior study. The presacral soft tissue structures are unremarkable. Right hip replacement is noted. There are degenerative changes of the lumbar spine. RAD/Sacrum-Coccyx min 2 Views IMPRESSION: Subacute fracture and subluxation of the coccyx. Electronically Signed: Nitin Gimenez MD at 15:15 EST , Service support ,
--- NOTE | 2018-04-26 13:57 | RAD_ITS ---
STUDY: X-RAY - LUMBAR SPINE REASON FOR EXAM: Female, 52 years old. Low back pain following a recent fall. History of L1 compression fracture. TECHNIQUE: 3 view(s) of the lumbar spine were obtained. COMPARISON: Comparison is made with prior examination dated September 22, 2018. FINDINGS: There is straightening of the normal lumbar lordosis. There is a mild dextroscoliosis of the lumbar spine. There is a normal alignment of the vertebrae. Stable compression deformity of the superior endplate of the L1 vertebrae. Prior right total hip replacement. There is multilevel endplate spondylosis of the lumbar vertebrae. There is multi-level degenerative disc disease with multi-level disc space narrowing. There is atherosclerotic calcification of the abdominal aorta without a demonstrated aneurysm. RAD/Lumbar Spine 2 or 3 Views IMPRESSION: Stable compression deformity of the superior aspect of the L1 vertebrae. Straightening of the normal lumbar lordosis. Degenerative changes of the spine, as detailed above. Electronically Signed: Manuelito Silva MD at 14:36 EST , Service support ,
== END ==
LOC: MTRAD 13:55
PROVIDERS: Family Provider Family Medicine; PCP Family Medicine; Referring Provider Family Medicine; Visit Provider Family Medicine
DX: S32.010A Wedge compression fracture of first lumbar vertebra, initial encounter for closed fracture (principal)
CPT/HCPCS: 72100; 72220

== ENCOUNTER 2018-05-04 14:05 | Emergency (ER) | payer MEDICARE, SELFPAY ==
[2018-04-13 21:55] VITALS: BMI 41.0
[2018-05-04] VITALS (8 sets, daily range): BP systolic 123–148; BP diastolic 73–75; PULSE 80–85; RESP 14–18; TEMP 37; O2SAT 95–98; BMI 39.9
--- NOTE | 2018-05-04 14:45 | EKG12_ITS ---
Test Reason : SOB Blood Pressure : / mmHG Vent. Rate : 082 BPM Atrial Rate : 082 BPM P-R Int : 144 ms QRS Dur : 094 ms QT Int : 362 ms P-R-T Axes : 032 011 023 degrees QTc Int : 422 ms Normal sinus rhythm Nonspecific T wave abnormality Abnormal ECG Confirmed by MARYAM TAFOYA, JAZZMINE ([id number]), manuscript editor SUKUMAR GODINEZ ([id number]) on 05/07/2018 1:49:34 PM Referred By: KAMILA Confirmed By:JAZZMINE FRANCISCO MD
--- NOTE | 2018-05-04 14:45 | RAD_ITS ---
STUDY: X-RAY CHEST REASON FOR EXAM: Female, 52 years old. Shortness breath on exertion. TECHNIQUE: Single AP portable view of the chest. COMPARISON: Comparison is made with prior study dated March 09, 2018. FINDINGS: The lungs are clear and expanded. There is no demonstrated pleural abnormality. There is borderline cardiomegaly. Normal mediastinum and alden. Normal visualized pulmonary arteries. There is atherosclerotic calcification of the aortic arch with tortuosity. There are diffuse degenerative changes of the visualized thoracic spine. Normal visualized ribs, clavicles, and shoulders. There is no demonstrated abnormality of the visualized soft tissue structures of the upper abdomen. RAD/Chest 1 View (Portable) IMPRESSION: No acute abnormality is seen. Electronically Signed: Manuelito Silva, at 15:15 EST , Service support ,
[2018-05-04] MEDS: MethylPREDNISolone 125 MG/2 ML Vial IV (15:55)
[2018-05-04 15:59] LABS: Absolute Lymphocyte Count 2.09 X10^3/ul (0.83-4.51); Absolute Neutrophil Count 9.9 X10^3/uL (2.0-7.7); Basophil# 0.07 X10^3/uL; Basophil% 0.5 % (0-1); Eosinophil# 0.18 X10^3/uL; Eosinophils% 1.4 % (0-5); Hematocrit 42.7 % (37-47); Hemoglobin 14.1 g/dl (12.0-15.0); Lymphocyte # 2.09 X10^3/ul (4.0); Lymphocyte % 15.8 % (19-41); Mean Corpuscular Hgb 28.3 pg (27.0-32.0); Mean Corpuscular Volume 85.7 fL (81-99); Mean Platelet Vol. 9.4 fl (6.2-12.0); Monocyte% 7.5 % (0-10); Neutrophil # 9.87 X10^3/uL (2.7-7.7); Neutrophil % 74.5 % (47-70); Platelet Count 196 K/mm3 (150-450); RBC Distribution Width CV 19.7 % (11.6-14.6); RBC Distribution Width SD 61.4 fl (35.1-43.9); Red Blood Count 4.98 M/mm3 (4.2-5.4); White Blood Count 13.3 K/mm3 (4.4-11.0)
[2018-05-04 16:06] LABS: POSITIVE COUNT NO; POSITIVE DIFFERENTIAL NO; POSITIVE MORPHOLOGY NO
[2018-05-04 16:10] LABS: Anion Gap 8 (5-15); BUN 9 mg/dL (7-18); BUN/Creat Ratio 9.5 RATIO (10-20); Calcium,Total 9.3 mg/dL (8.5-10.1); Chloride 101 mmol/L (98-107); Creatinine, Serum 0.95 mg/dL (0.55-1.02); EST Glomerular Filtration Rate 65 mL/min (>60); Est Glom Filt Rate - Afr Amer 79 mL/min (>60); Glucose 116 mg/dL (74-106); Potassium 3.9 mmol/L (3.5-5.1); Sodium Level 130 mmol/L (136-145)
[2018-05-04] MEDS: Ipratropium/Albuterol Sulfate 3 ML AMPUL.NEB INHALATION (16:13)
--- NOTE | 2018-05-04 17:51 | ED.DCSUM_ITS ---
- ER Visit Summary Date of Service: 05/04/18 Chief Complaint: Cough and shortness of breath History of Present Illness: The patient is a [address] Espinosa, Dr. Taylor, and Dr. Willoughby. She has a history of COPD. She is on 3 L of home O2 and does have a nebulizer at home. She reports that she has a chronic cough that worsened approximately 10 days ago. States is productive of dark brown sputum without blood. She denies any fever or chills. Patient reports that she is more short of breath than usual. This is worsened with exertion or coughing. It is unchanged with lying flat. She denies any chest pain. No personal history of DVT. No ankle swelling or calf pain. Physical Examination: Vitals: 98.6, 123/73, 80, 17, 95% on 3 L nasal cannula which is her home O2.. General: Well-nourished and well-developed. Head: Normocephalic atraumatic. Neck: Supple, no lymphadenopathy. No JVD. Nontender. Cardiovascular: Regular rate and rhythm. No murmurs. Respiratory: No respiratory distress. Moderate wheezing bilaterally with decreased air movement. Abdominal: Soft, nontender, nondistended, normal bowel sounds. No guarding, rebound, or peritoneal signs. Back: Nontender. Extremities: Nontender, no edema. Skin: Normal color, no rash. Neurologic: Alert and oriented ?3. Cranial nerves II through XII are intact. Normal strength and sensation. Psych: Normal affect. Test Results: Chest x-ray shows no acute disease. EKG is sinus at [address] changes. Is unchanged from April 13. Troponin is negative. Chem-7 more for sodium 130 and glucose 116. CBC is more for a white count of 13.3 with 75 segmented neutrophils and 16 leukocytes. Influenza is negative. Chest x-ray is normal. Emergency Department Course and Treatment: Patient was given albuterol Atrovent aerosols. She was given Solu-Medrol IV. She is now at 95% on room air and is resting comfortably. Treatment Plan: Patient has oxygen and a nebulizer at home. She will be discharged with Zithromax and prednisone. Instructed to follow-up with Dr. Mistry in 3-5 days if not improving. Return to the emergency department for any worsening symptoms. Disposition: To home in improved and stable condition. Impression: 1. COPD exacerbation. This note was generated with [employer] dictation software. It may contain incorrect words, spelling, and punctuation that were not noted in review of the chart prior to signing ED Disposition - Plan for ED Patient: Instructions: ED COPD Flare Prescriptions: Azithromycin [Zithromax] 250 mg PO DAILY #4 tablet Prednisone [Deltasone] 60 mg PO DAILY #15 tablet Referrals: Janel Taylor MD [Primary Care Provider] - 3-5 Days if not improving
[2018-05-04] MEDS: Azithromycin 250 MG Tablet 500 MG PO (18:01)
== END 2018-05-04 18:07 | disposition home or self-care (01) ==
PROVIDERS: Emergency Provider Emergency Medicine; Family Provider Family Medicine; PCP Family Medicine
DX: J44.9 Chronic obstructive pulmonary disease, unspecified (principal); I25.10 Atherosclerotic heart disease of native coronary artery without angina pectoris; E11.9 Type 2 diabetes mellitus without complications; I10 Essential (primary) hypertension; Z79.02 Long term (current) use of antithrombotics/antiplatelets; Z79.52 Long term (current) use of systemic steroids; Z79.899 Other long term (current) drug therapy
CPT/HCPCS: 71045; 80048; 84484; 85025; 87804; 93005; 94640; 94760; 96361; 96374; 99285; J7040; A4216

== ENCOUNTER 2018-05-13 15:36 | Emergency (ER) | payer MEDICARE, SELFPAY ==
[2018-05-04 14:07] VITALS: BMI 39.9
[2018-05-13 15:37] VITALS: BP 141/99; PULSE 91; RESP 16; TEMP 36.6; O2SAT 93; BMI 39.1
--- NOTE | 2018-05-13 16:01 | RAD_ITS ---
STUDY: X-RAY - RIGHT HIP REASON FOR EXAM: Female, 52 years old. Dizziness, fall, right hip pain, leg pain TECHNIQUE: 2 views of the hip. AP pelvis COMPARISON: 11/06/2017 FINDINGS: Right hip replacement is in radiographic alignment. Cerclage wires around the femoral stem noted. Pelvic ring is intact without pelvic ring fracture or pubic symphysis/sacroiliac joint diastases. The sacrum is grossly unremarkable. There are vascular calcifications. RAD/HIP, UNI W/ Pelvis 2-3 Views IMPRESSION: Right hip replacement in stable alignment. No fracture identified. Electronically Signed: Nitin Gimenez MD at 16:45 EDT , Service support ,
--- NOTE | 2018-05-13 16:02 | CT_ITS ---
STUDY: CT BRAIN WITHOUT CONTRAST REASON FOR EXAM: Female, 52 years old. Dizziness, fall on 05/22/2017 RADIATION DOSAGE (If Supplied By Facility): CTDIvol = ( 44.99 ) mGy, DLP = ( 812.98 ) mGycm TECHNIQUE: Transaxial CT imaging of the brain was performed without administration of intravenous contrast material. Individualized dose optimization techniques were used for this CT. COMPARISON: 01/15/2016 FINDINGS: Normal soft tissue structures. Normal calvarium. There is mild cerebral atrophy with widening of the extra-axial spaces and ventricular dilatation. There are areas of decreased attenuation within the white matter tracts of the supratentorial brain, similar. Normal basal ganglia and thalami. Normal brainstem. Normal cerebellum. There is no intracranial hemorrhage. There are no findings of an acute ischemic infarction. Normal visualized paranasal sinuses. CT/Brain/Head without Contrast IMPRESSION: 1. No acute intracranial hemorrhage or mass effect. 2. Nonspecific white matter changes that can be associated with small vessel ischemic disease or demyelinating disorders. Overall similar since prior study 3. Central parenchymal atrophy greater than expected for age. Electronically Signed: Nitin Gimenez MD at 16:36 EDT , Service support ,
--- NOTE | 2018-05-13 16:02 | RAD_ITS ---
STUDY: X-RAY - LUMBAR SPINE REASON FOR EXAM: Female, 52 years old. Dizziness, fall, back pain TECHNIQUE: 3 view(s) of the lumbar spine were obtained. COMPARISON: 04/02/2018 , 04/26/2018 FINDINGS: There is straightening of the normal lumbar lordosis. There is a dextroscoliosis of the lumbar spine. There is a normal alignment of the vertebrae. There is diffuse demineralization with multi-level endplate spondylosis. There is multi-level degenerative disc disease with multi-level disc space narrowing, most conspicuous at L3-L4 and L4-L5. L1 compression fracture stable since prior study. There is atherosclerotic calcification of the abdominal aorta without a demonstrated aneurysm. RAD/Lumbar Spine 2 or 3 Views IMPRESSION: 1. Stable L1 compression fracture. 2. Stable degenerative changes. 3. Stable straightening of the normal lumbar lordosis. Electronically Signed: Nitin Gimenez MD at 16:44 EDT , Service support ,
--- NOTE | 2018-05-13 16:06 | ED.DCSUM_ITS ---
- ER Visit Summary Date of Service: 05/13/18 Chief Complaint: Dizziness with fall History of Present Illness: The patient is a 52 F who presents for evaluation of injuries after a fall. Patient states she gets dizzy when she goes from sitting to standing. Dizziness improves when she sits back down. Yesterday she stood up in her kitchen and became dizzy, falling onto her right side. She states she did hit her head and is on Plavix. She thinks she may have lost consciousness for a few seconds. She is complaining of right back pain, hip pain and leg pain. She fell a month and a half ago as well and is seen her doctor for the dizziness. Patient has tried Tylenol for pain. She has COPD and currently is denying any acute shortness of breath or any other symptoms other than above. Physical Examination: Vital signs: afebrile, hemodynamically stable, no hypoxia on room air General: well nourished, well developed, in no distress Skin: warm, dry, no rash, no pallor no soft tissue injuries including contusions, lacerations, trauma or abrasions noted HEENT: normocephalic and atraumatic; PERRL, EOMI, moist mucous membranes, no maxillofacial trauma Cardiovascular: regular rate and rhythm without murmurs, no peripheral edema, 2+ pulses all distal extremities Respiratory: No increased work of breathing, lungs are clear to auscultation bilaterally, no rales, rhonchi or wheezing Abdominal: Abdomen is soft, nontender with normoactive bowel sounds, no guarding or rebound, no masses MSK: Moves all extremities, no deformities, diffuse tenderness to palpation of the back without any midline point tenderness deformities or step-offs, cervical spine is full active range of motion without any midline tenderness deformities or step-offs, tenderness to palpation of the right hip without noted deformity. Legs are symmetric in length without any abnormal external or internal rotation. DP pulses 2+ and symmetric with neurovascular function intact distally. Straight leg raise is negative on the right. Neuro: Awake and alert, oriented ?4. No facial droop, sensation and motor function intact and symmetric Test Results: Abnormal Lab Results 05/13/18 05/13/18 16:10 16:10 WBC 12.2 H RBC 4.88 Hgb 13.9 Hct 42.4 MCV 86.9 MCH 28.5 MCHC 32.8 RDW 19.6 H RDW Differential 62.9 H Plt Count 248 MPV 8.7 Immature Gran % (Auto) 0.700 Neut % (Auto) 70.4 H Lymph % (Auto) 17.0 L [place] % (Auto) 8.4 Eos % (Auto) 2.8 Baso % (Auto) 0.7 Absolute Neuts (auto) 8.6 H Absolute Lymphs (auto) 2.08 Total Counted Not Reportable Sodium 136 Potassium 4.1 Chloride 104 Carbon Dioxide 25.0 Anion Gap 7 BUN 8 Creatinine 0.82 Estim Creat Clear Calc 66.39 Est GFR (MDRD) Af Amer 94 Est GFR (MDRD) Non-Af 77 BUN/Creatinine Ratio 9.7 L Glucose 187 H Calcium 9.2 Clinical Impression(s) from Imaging Studies Hip/Pelvis X-Ray 05/13/18 16:01 IMPRESSION: Right hip replacement in stable alignment. No fracture identified. Electronically Signed: Nitin Gimenez MD at 16:45 EDT , Service support , Brain CT 05/13/18 16:02 IMPRESSION: 1. No acute intracranial hemorrhage or mass effect. 2. Nonspecific white matter changes that can be associated with small vessel ischemic disease or demyelinating disorders. Overall similar since prior study 3. Central parenchymal atrophy greater than expected for age. Electronically Signed: Nitin Gimenez MD at 16:36 EDT , Service support , Lumbar Spine X-Ray 05/13/18 16:02 IMPRESSION: 1. Stable L1 compression fracture. 2. Stable degenerative changes. 3. Stable straightening of the normal lumbar lordosis. Electronically Signed: Nitin Gimenez MD at 16:44 EDT , Service support , Medications Given Discontinued Medications Sodium Chloride () 1,000 mls @ 999 mls/hr IV .Q1H1M ONE Stop: 05/13/18 17:00 Last Admin: 05/13/18 16:16 Dose: 999 mls/hr Ketorolac Tromethamine (Toradol) 15 mg IV X1 ONE Stop: 05/13/18 16:50 Last Admin: 05/13/18 17:15 Dose: 15 mg Emergency Department Course and Treatment: Because patient fell, hit her head and is on Plavix, head CT was performed that showed no intracranial hemorrhage or other pathology. X-ray of the lumbar spine showed a chronic L1 compression f racture and no other new dislocations or fractures. Pelvis x-ray showed no pelvic or hip acute fractures or dislocations. Patient does have a right hip replacement noted. Patient was observed ambulating with her walker without any difficulty. Because patient is complaining of the dizziness with standing, she was given IV fluids. Labs were performed that showed no electrolyte derangements, anemia, or renal function consistent with dehydration that would explain her positional dizziness. Patient is currently being evaluated by her doctor for this complaint and was encouraged to continue this follow-up with her doctor. Patient is ambulating without any difficulty and is very well- appearing. She is able to stand up without dizziness. She was discharged home. Treatment Plan: [] Disposition: [] Impression: Right hip and lower back contusion, closed head injury, orthostatic dizziness This note was generated with [employer] dictation software. It may contain incorrect words, spelling, and punctuation that were not noted in review of the chart prior to signing ED Disposition - Plan for ED Patient: Disposition: Home or Assisted Living Instructions: ED Dizziness UKO, ED Contusion Soft Tissue, ED Head Injury Closed Referrals: Janel Taylor MD [Primary Care Provider] - 3-5 Days if not improving Additional Instructions: Continue [id number] pain medications as needed for your bruises. Follow- up with your doctor as soon as possible to continue workup of your dizziness when you stand up. If you have any worsening of your condition or any new concerning symptoms, please return immediately to the emergency department for another evaluation.
[2018-05-13] MEDS: 0.9% Normal Saline 1,000 ML 999 ML IV (16:16)
[2018-05-13 16:22] LABS: Absolute Lymphocyte Count 2.08 X10^3/ul (0.83-4.51); Absolute Neutrophil Count 8.6 X10^3/uL (2.0-7.7); Basophil# 0.08 X10^3/uL; Basophil% 0.7 % (0-1); Eosinophil# 0.34 X10^3/uL; Eosinophils% 2.8 % (0-5); Hematocrit 42.4 % (37-47); Hemoglobin 13.9 g/dl (12.0-15.0); Lymphocyte # 2.08 X10^3/ul (4.0); Mean Corp Hgb Conc 32.8 g/gl (32-36); Mean Corpuscular Hgb 28.5 pg (27.0-32.0); Mean Corpuscular Volume 86.9 fL (81-99); Mean Platelet Vol. 8.7 fl (6.2-12.0); Monocyte# 1.03 X10^3/uL; Monocyte% 8.4 % (0-10); Neutrophil # 8.59 X10^3/uL (2.7-7.7); Neutrophil % 70.4 % (47-70); Platelet Count 248 K/mm3 (150-450); RBC Distribution Width CV 19.6 % (11.6-14.6); RBC Distribution Width SD 62.9 fl (35.1-43.9); Red Blood Count 4.88 M/mm3 (4.2-5.4); White Blood Count 12.2 K/mm3 (4.4-11.0)
[2018-05-13 16:24] LABS: POSITIVE COUNT NO; POSITIVE DIFFERENTIAL NO; POSITIVE MORPHOLOGY NO
[2018-05-13 16:35] LABS: Anion Gap 7 (5-15); BUN 8 mg/dL (7-18); BUN/Creat Ratio 9.7 RATIO (10-20); Calcium,Total 9.2 mg/dL (8.5-10.1); Chloride 104 mmol/L (98-107); Creatinine, Serum 0.82 mg/dL (0.55-1.02); EST Glomerular Filtration Rate 77 mL/min (>60); Est Glom Filt Rate - Afr Amer 94 mL/min (>60); Estimated Creatinine Clearance 66.39 ml/min; Glucose 187 mg/dL (74-106); Potassium 4.1 mmol/L (3.5-5.1); Sodium Level 136 mmol/L (136-145)
[2018-05-13] MEDS: Ketorolac 15 MG/ML Vial IV (17:15)
[2018-05-13 17:40] VITALS: BP 141/99; PULSE 80; RESP 20; O2SAT 96
== END 2018-05-13 17:42 | disposition home or self-care (01) ==
PROVIDERS: Emergency Provider Emergency Medicine; Family Provider Family Medicine; PCP Family Medicine
DX: S09.90XA Unspecified injury of head, initial encounter (principal); S70.01XA Contusion of right hip, initial encounter; S30.0XXA Contusion of lower back and pelvis, initial encounter; R42 Dizziness and giddiness; W19.XXXA Unspecified fall, initial encounter; Y93.9 Activity, unspecified; Y92.000 Kitchen of unspecified non-institutional (private) residence as the place of occurrence of the external cause; Y99.9 Unspecified external cause status; J44.9 Chronic obstructive pulmonary disease, unspecified; Z79.02 Long term (current) use of antithrombotics/antiplatelets; Z79.899 Other long term (current) drug therapy; Z96.641 Presence of right artificial hip joint
CPT/HCPCS: 70450; 72100; 73502; 80048; 85025; 96361; 96374; 99284; J7030

== ENCOUNTER → 2018-05-22 13:27 | Outpatient (CLI) | payer MEDICARE, SELFPAY ==
[2018-03-22 12:32] VITALS: BMI 40.4
[2018-05-13 15:37] VITALS: BMI 39.1
--- NOTE | 2018-05-22 15:27 | PFTCOMP_ITS ---
COMPLETE PULMONARY FUNCTION TEST INTERPRETATION Brief HPI: Patient is a 52 year old female, currently under the care of myself, who presents to [facility] for complete pulmonary function tests secondary to diagnosis of COPD. Respiratory therapist reports good effort and reproducible results. Interpretation: Forced expiration spirometry shows a moderate large airways obstructive ventilatory defect with an FEV1 of 65% predicted. There is no significant bronchodilator response by strict ATS criteria. Spirograms are of good quality and plateau slowly, indicating slowly emptying areas of the lungs. The respiratory flow volume loop shows decreased expiratory flow rates at high lung volumes consistent with small airways obstruction. Lung volumes by body plethysmography show a normal total lung capacity at 4.94 L, 104% predicted. FRC and RV are elevated out of proportion. Lung volume measurements are consistent with air-trapping. Diffusion capacity by carbon monoxide is decreased at 41% predicted. The airway resistance is elevated. Compared to previous pulmonary function tests from 09/21/2017, there has been no significant change. Impression: Irreversible moderate large airways obstructive ventilatory defect with a symmetric reduction in diffusing capacity and no significant change compared to September 2017.
== END ==
PROVIDERS: Family Provider Family Medicine; PCP Family Medicine; Referring Provider Nurse Practitioner Acute Care; Visit Provider Nurse Practitioner Acute Care
DX: J44.9 Chronic obstructive pulmonary disease, unspecified (principal)
CPT/HCPCS: 94060; 94726; 94729

== ENCOUNTER 2018-05-24 15:18 | Emergency (ER) | payer MEDICARE, SELFPAY ==
[2018-05-24] VITALS (7 sets, daily range): BP systolic 107–139; BP diastolic 57–78; PULSE 71–84; RESP 16–23; TEMP 36.9; O2SAT 93–96; BMI 39.2
--- NOTE | 2018-05-24 15:26 | EKG12_ITS ---
Test Reason : CP Blood Pressure : / mmHG Vent. Rate : 079 BPM Atrial Rate : 079 BPM P-R Int : 146 ms QRS Dur : 090 ms QT Int : 392 ms P-R-T Axes : 030 016 028 degrees QTc Int : 449 ms Normal sinus rhythm Normal ECG Confirmed by MARYAM TAFOYA, JAZZMINE ([id number]), photography editor MARTHA SCOTT ([id number]) on 05/28/2018 11:48:25 AM Referred By: Rosanna Hampton Confirmed By:JAZZMINE FRANCISCO MD
--- NOTE | 2018-05-24 15:30 | RAD_ITS ---
STUDY: X-RAY CHEST REASON FOR EXAM: Female, 52 years old. C/O CHEST PAIN, NAUSEA SINCE 0700 TECHNIQUE: Single AP portable view of the chest. COMPARISON: None. FINDINGS: The lungs are clear and expanded. There is no demonstrated pleural abnormality. Normal size heart. Normal mediastinum and alden. Normal visualized pulmonary arteries. Normal visualized aortic arch and descending thoracic aorta. Normal visualized thoracic spine. Normal visualized ribs, clavicles, and shoulders. There is no demonstrated abnormality of the visualized soft tissue structures of the upper abdomen. RAD/Chest 1 View (Portable) IMPRESSION: Normal x-ray examination of the chest. Electronically Signed: Ana Kasper, at 16:11 EDT Tel , Service support ,
--- NOTE | 2018-05-24 15:31 | ED.DCSUM_ITS ---
- ER Visit Summary Date of Service: 05/24/18 Chief Complaint: Chest pain History of Present Illness: The patient is a 52 F who presents with chest pain that began this morning approximately 8 hours prior to arrival. Patient states the pain is over the lower substernal area. Patient describes the pain is s harp. Patient states nothing makes it better or worse. Patient states she did take a sublingual nitroglycerin tablet with no improvement. Patient admits to chronic shortness of breath and cough from her COPD. Patient also admits to some acid reflux and some lightheadedness. Patient denies any nausea or vomiting. Patient denies any diaphoresis. Physical Examination: Vital signs are stable. Patient is afebrile. Patient is in no acute distress. Oral mucosa is pink and moist. Neck is supple. Trachea is midline. There is no JVD noted. Heart was regular rate and rhythm. Lungs are clear and equal bilateral. Abdomen is soft. Bowel sounds are normal. There is no tenderness. There is no guarding noted. Skin is warm dry. Cranial nerves II through XII are intact. There are no focal motor or sensory deficits noted. The remaining physical exam is within normal limits. Test Results: EKG showed normal sinus rhythm with a rate of 79. There are no acute ST or T wave changes. This was unchanged compared to previous EKG dated 05/04/2018. Chest x-ray was obtained and was normal. CBC, basic metabolic profile, and troponin were obtained and were essentially within normal limits. Emergency Department Course and Treatment: Patient was given aspirin and sublingual nitroglycerin here. Patient felt better on reevaluation. Patient has a HEART score of 3. Patient was advised she is at low risk for acute cardiac event. Patient was instructed to follow-up with her primary care physician in 5-7 days. Patient understood and was agreeable with the plan. All questions were answered. Disposition: Discharge home Impression: Chest pain of uncertain etiology This note was generated with [employer] dictation software. It may contain incorrect words, spelling, and punctuation that were not noted in review of the chart prior to signing ED Disposition - Plan for ED Patient: Disposition: Home or Assisted Living Diagnosis: Chest pain of uncertain etiology Instructions: ED Chest Pain Atypical Unkn Cause Referrals: Janel Taylor MD [Primary Care Provider] - 5-7 Days
[2018-05-24] MEDS: Aspirin 81 MG TAB.CHEW 324 MG PO (15:44)
[2018-05-24 16:00] LABS: Absolute Lymphocyte Count 1.56 X10^3/ul (0.83-4.51); Absolute Neutrophil Count 6.3 X10^3/uL (2.0-7.7); Basophil# 0.07 X10^3/uL; Basophil% 0.8 % (0-1); Eosinophil# 0.11 X10^3/uL; Eosinophils% 1.3 % (0-5); Hematocrit 41.8 % (37-47); Lymphocyte # 1.56 X10^3/ul (4.0); Mean Corp Hgb Conc 33.5 g/gl (32-36); Mean Corpuscular Hgb 29.4 pg (27.0-32.0); Mean Corpuscular Volume 87.8 fL (81-99); Mean Platelet Vol. 9.4 fl (6.2-12.0); Monocyte# 0.62 X10^3/uL; Monocyte% 7.2 % (0-10); Neutrophil # 6.28 X10^3/uL (2.7-7.7); Neutrophil % 72.4 % (47-70); Platelet Count 246 K/mm3 (150-450); RBC Distribution Width CV 18.6 % (11.6-14.6); RBC Distribution Width SD 58.1 fl (35.1-43.9); Red Blood Count 4.76 M/mm3 (4.2-5.4); White Blood Count 8.7 K/mm3 (4.4-11.0)
[2018-05-24 16:02] LABS: POSITIVE COUNT NO; POSITIVE DIFFERENTIAL NO; POSITIVE MORPHOLOGY NO
[2018-05-24 16:15] LABS: Anion Gap 9 (5-15); BUN 4 mg/dL (7-18); BUN/Creat Ratio 5.9 RATIO (10-20); Calcium,Total 9.3 mg/dL (8.5-10.1); Chloride 103 mmol/L (98-107); Creatinine, Serum 0.68 mg/dL (0.55-1.02); EST Glomerular Filtration Rate 96 mL/min (>60); Est Glom Filt Rate - Afr Amer 116 mL/min (>60); Estimated Creatinine Clearance 80.06 ml/min; Glucose 118 mg/dL (74-106); Potassium 3.3 mmol/L (3.5-5.1); Sodium Level 134 mmol/L (136-145)
--- NOTE | 2018-05-24 17:23 | CT_ITS ---
STUDY: CTA CHEST REASON FOR EXAM: Female, 52 years old. Chest pain. Recent surgery. RADIATION DOSAGE (If Supplied By Facility): CTDIvol = ( 11.48 ) mGy, DLP = ( 548.17 ) mGycm TECHNIQUE: The examination was performed with the intravenous administration of Isovue 370 100ML IV. Post-processing of the angiographic images was performed, with multiplanar reformation and 3D reconstruction. Individualized dose optimization techniques were used for this CT. COMPARISON: None. FINDINGS: Normal enhancement of the main pulmonary artery and right and left pulmonary arteries. Normal enhancement of the bilateral peripheral pulmonary arteries. There is no demonstrated pulmonary embolism. Normal thoracic aorta and visualized great vessels. There is no demonstrated aortic dissection. There is cardiomegaly. Normal pericardium Normal mediastinum. Normal hilar regions. Normal visualized trachea and bronchi. The lungs are well expanded. Normal pulmonary parenchyma. Normal pleura. Normal chest wall structures. There are degenerative changes of thoracic spine. Normal visualized upper abdomen. CT/CTA Chest W/WO Contrast IMPRESSION: No evidence of pulmonary embolus or thoracic aortic dissection. Lungs appear adequately inflated and clear. Mild cardiomegaly. Electronically Signed: Parish Soriano DO at 19:40 EDT Tel , Service support ,
== END 2018-05-24 19:53 | disposition home or self-care (01) ==
PROVIDERS: Emergency Provider Emergency Medicine; Family Provider Family Medicine; PCP Family Medicine
DX: R07.9 Chest pain, unspecified (principal); I25.10 Atherosclerotic heart disease of native coronary artery without angina pectoris; E11.9 Type 2 diabetes mellitus without complications; I10 Essential (primary) hypertension; J44.9 Chronic obstructive pulmonary disease, unspecified; R42 Dizziness and giddiness; M54.2 Cervicalgia; R51 Headache; K21.9 Gastro-esophageal reflux disease without esophagitis; Z72.0 Tobacco use; Z79.02 Long term (current) use of antithrombotics/antiplatelets; Z79.899 Other long term (current) drug therapy; Z95.5 Presence of coronary angioplasty implant and graft
CPT/HCPCS: 71045; 71275; 80048; 84484; 85025; 93005; 99284; Q9967; A4216

== ENCOUNTER 2018-07-21 15:26 | Emergency (ER) | payer MEDICARE, SELFPAY ==
[2018-05-24 15:20] VITALS: BMI 39.2
[2018-07-21 15:28] VITALS: BP 160/84; PULSE 84; RESP 16; TEMP 36.9; O2SAT 96; BMI 40.4
--- NOTE | 2018-07-21 15:47 | RAD_ITS ---
STUDY: X-RAY - LEFT HAND REASON FOR EXAM: Female, 52 years old. Hit hand with hammer, pain TECHNIQUE: 3 view(s) of the hand. COMPARISON: None. FINDINGS: Normal radiocarpal articulation. Normal distal radioulnar joint. Normal visualized carpal bones. Normal carpal articulations Normal carpometacarpal articulation of the thumb. Normal second through fifth carpometacarpal joints. Normal metacarpi. Normal metacarpophalangeal joint of the thumb. Normal interphalangeal joint of the thumb. Normal proximal and distal phalanges of the thumb. Normal metacarpophalangeal joints of the second through fifth fingers. Normal proximal and distal interphalangeal joints of the second through fifth fingers. Normal phalanges of the second through fifth fingers. The soft tissue structures are unremarkable. RAD/Hand Min 3 Views IMPRESSION: No fracture or malalignment. Electronically Signed: Nitin Gimenez MD at 16:16 EDT , Service support ,
--- NOTE | 2018-07-21 15:51 | ED.DCSUM_ITS ---
History of Present Illness Chief Complaint: Upper Extremity Injury Informant: Patient Onset: Today, Hours - 4 Narrative: [id number] presents with injury left hand 4 hours ago. Hammering a nail to the wall when she hit her hand twice. She is on Plavix. There is bruising. There is no bleeding. No paresthesias. History of right femur fracture repair [place] [address] Masterson. [facility]. Reports has a follow-up September 05. Took Tylenol when symptoms occurred. History of gastric ulcers. Prior similar symptoms: No Past Medical History - Allergies and Home Meds Allergies/Adverse Reactions: Allergies amoxicillin Allergy (Verified 07/21/18 15:28) Itching clarithromycin [From Biaxin] Allergy (Verified 07/21/18 15:28) Unknown erythromycin base Allergy (Verified 07/21/18 15:28) Unknown methadone Allergy (Verified 07/21/18 15:28) Itching metolazone Allergy (Verified 07/21/18 15:28) Unknown Penicillins Allergy (Verified 07/21/18 15:28) Hives Sulfa (Sulfonamide Antibiotics) Allergy (Verified 07/21/18 15:28) Hives ibuprofen Adverse Reaction (Verified 07/21/18 15:28) Other morphine Adverse Reaction (Verified 07/21/18 15:28) Other Primary Care Physician: Janel Taylor MD [Primary Care Provider] - Surgical History: appendectomy, cholecystectomy, tonsillectomy, - - Right lower extremity surgery x3 as well as bone grafting, appendectomy, cholecystectomy, gastric bypass, hernia repairs, hip replacement, tonsillectomy. Smoking Status: Current every day smoker - Family History Sibling Family History: Family History (Last Reviewed 04/13/18 @ 20:49 by Zaid Patrick MD) Mother Heart disease Cancer Father Hypertension Arthritis Hyperlipemia Grandmother Breast cancer Heart disease Grandfather Heart disease Family History: Reports: Hypertension Maternal Family History: Family History (Last Reviewed 04/13/18 @ 20:49 by Zaid Patrick MD) Mother Heart disease Cancer Father Hypertension Arthritis Hyperlipemia Grandmother Breast cancer Heart disease Grandfather Heart disease Family History: Reports: Cancer, Heart Disease Paternal Family History: Family History (Last Reviewed 04/13/18 @ 20:49 by Zaid Patrick MD) Mother Heart disease Cancer Father Hypertension Arthritis Hyperlipemia Grandmother Breast cancer Heart disease Grandfather Heart disease Family History: Reports: Hypertension Review of Systems General: Denies: Chills, Fever, Sweats Eyes: Denies: Visual changes - bilaterally, Diplopia ENT: Denies: Rhinorrhea, Sore throat Cardiovascular: Denies: Chest pain, Palpitations Respiratory: Denies: Dyspnea, Cough, Dyspnea on exertion Gastrointestinal: Denies: Abdominal pain, Nausea, Vomiting, Diarrhea, Melena, Hematochezia Genitourinary: Denies: Dysuria, Hematuria, Frequency Musculoskeletal: Reports: Arthralgias. Denies: Back pain, Extremity Pain Skin: Denies: Rash, Wounds Neurological: Denies: Headache, Weakness, Parasthesia, Numbness Physical Exam Vital Signs/Narrative: Vital Signs Temp Pulse Resp BP Pulse Ox 07/21/18 15:28 98.5 F 84 16 160/84 H 96 Inital Vital Signs reviewed: Yes General: Well nourished, Well developed, No Acute Distress Head: Normocephalic, Atraumatic Eyes: Perrl, EOMI ENT: Moist mucous membranes, No rhinorrhea Neck: Supple, Nontender Cardiovascular: Regular rate, Regular rhythm, No murmurs Respiratory: No distress, CTA bilaterally, Chest nontender Abdomen: Soft, Nontender, Nondistended, Normal bowel sounds Back: Nontender, Normal Inspection Extremities: No edema, - - Left upper extremity: No elbow or wrist tenderness. There is ecchymosis at the base of the third metacarpal with swelling and tenderness. There is slight ecchymosis and swelling to the distal fourth MC. No finger injuries. Skin intact. No deformities. Skin: No rash Neurological: Alert, Oriented x3, Cranial nerves II-XII grossly intact, Normal Strength, Normal Sensation Psychological: Normal affect, Normal Mood Diagnostic/Tx/Re-eval Left hand x-ray: No fracture or dislocation - Medical Decision Making Ice was placed on the hand. X-ray negative. Robbi wrap provided. Rice therapy. Patient continue Tylenol every 6 hours as needed. Avoid NSAIDs due to her ulcer history. Follow-up with her PCP. All questions answered. ED Disposition - Plan for ED Patient: Disposition: Home or Assisted Living Diagnosis: Contusion of left hand, initial encounter Instructions: ED Contusion Upper Ext Referrals: Janel Taylor MD [Primary Care Provider] - 5-7 Days
== END 2018-07-21 16:31 | disposition home or self-care (01) ==
LOC: ED 16:28
PROVIDERS: Emergency Provider Emergency Medicine; Family Provider Family Medicine; PCP Family Medicine
DX: S60.222A Contusion of left hand, initial encounter (principal); W22.8XXA Striking against or struck by other objects, initial encounter; Y93.9 Activity, unspecified; Y92.9 Unspecified place or not applicable; Y99.9 Unspecified external cause status; F17.200 Nicotine dependence, unspecified, uncomplicated; Z79.02 Long term (current) use of antithrombotics/antiplatelets; Z79.899 Other long term (current) drug therapy; Z88.1 Allergy status to other antibiotic agents; Z88.0 Allergy status to penicillin; Z88.2 Allergy status to sulfonamides; Z88.6 Allergy status to analgesic agent; Z87.19 Personal history of other diseases of the digestive system; Z98.84 Bariatric surgery status; Z96.649 Presence of unspecified artificial hip joint; Z90.49 Acquired absence of other specified parts of digestive tract
CPT/HCPCS: 73130; 99282

== ENCOUNTER 2018-07-28 15:41 | Emergency (ER) | payer MEDICARE, SELFPAY ==
[2018-07-26 14:02] VITALS: BMI 40.4
[2018-07-28 15:43] VITALS: BP 91/61; PULSE 66; RESP 20; TEMP 37.2; O2SAT 94; BMI 40.7
--- NOTE | 2018-07-28 15:55 | RAD_ITS ---
STUDY: X-RAY CHEST REASON FOR EXAM: Female, 52 years old. Cough with back pain TECHNIQUE: PA and lateral views of the chest. COMPARISON: 05/24/2018 FINDINGS: The lungs are clear and expanded. There is no demonstrated pleural abnormality. Normal size heart. Normal mediastinum and alden. Normal visualized pulmonary arteries. Normal visualized aortic arch and descending thoracic aorta. Normal visualized thoracic spine. Normal visualized ribs, clavicles, and shoulders. There is no demonstrated abnormality of the visualized soft tissue structures of the upper abdomen. RAD/Chest PA and Lateral IMPRESSION: Normal x-ray examination of the chest. Electronically Signed: Parish Soriano DO at 17:04 EDT Tel , Service support ,
--- NOTE | 2018-07-28 16:01 | ED.DCSUM_ITS ---
History of Present Illness Chief Complaint: Back Detail of Chief Complaint: Back pain predominantly right and COPD exacerbation Informant: Patient Onset: Today Context: Sudden Onset Timing: Continuous Quality: Pain right lower back Location: Right lower back Current Severity: Mild Maximum Severity: Moderate Worsened by: Movement or lifting Relieved by: Remaining still/stationary Associated Symptoms: None Narrative: Patient is a middle-aged woman with history of COPD on oxygen who presents with difficulty breathing with cough which is mildly productive and wheezing. She has not been on prednisone the last 3 to 6 months. She denies fever, chills night sweats. She denies runny nose, earache, sore throat or any URI symptoms. She denies GI symptoms. She denies urologic symptoms. She denies bowel bladder dysfunction. She denies saddle paresthesia or anesthesia. Denies foot drop. She denies thigh muscle weakness going up or down steps. She denies saddle paresthesia or anesthesia. She prefers sitting versus standing. Prior similar symptoms: Yes Recent Illness/Hospitalization: Yes - Past Medical History (1) Acute and chronic respiratory failure with hypoxia Status: Acute (2) Benign essential hypertension Status: Chronic (3) CAD (coronary artery disease) Status: Chronic (4) Chronic narcotic use Status: Chronic (5) Depression Status: Chronic (6) Gastroesophageal reflux disease Status: Chronic (7) HTN (hypertension) Status: Chronic (8) Hyperlipidemia Status: Chronic (9) Iron deficiency anemia due to dietary causes Status: Chronic Comment: exact cause of iron def anemia unknown-felt likely secondary to past history gastric bypass- although chronic blood loss etiology a possibility (has never had colonoscopy)- further workup including hemoccult stool is recommended (10) Morbid obesity Status: Chronic (11) RACHEL (obstructive sleep apnea) Status: Chronic Comment: 17/13 cm of water (12) Osteoarthritis Status: Chronic (13) Parathyroid abnormality Status: Chronic (14) Pulmonary hypertension Status: Chronic (15) Schizophrenia Status: Chronic (16) Spinal stenosis of lumbar region at multiple levels Status: Chronic (17) Tobacco abuse Status: Chronic (18) Type 2 diabetes mellitus Status: Chronic Past Medical History - Allergies and Home Meds Allergies/Adverse Reactions: Allergies amoxicillin Allergy (Verified 07/28/18 15:46) Itching clarithromycin [From Biaxin] Allergy (Verified 07/28/18 15:46) Unknown erythromycin base Allergy (Verified 07/28/18 15:46) Unknown methadone Allergy (Verified 07/28/18 15:46) Itching metolazone Allergy (Verified 07/28/18 15:46) Unknown Penicillins Allergy (Verified 07/28/18 15:46) Hives Sulfa (Sulfonamide Antibiotics) Allergy (Verified 07/28/18 15:46) Hives ibuprofen Adverse Reaction (Verified 07/28/18 15:46) Other morphine Adverse Reaction (Verified 07/28/18 15:46) Other Primary Care Physician: Janel Taylor MD [Primary Care Provider] - Prior records reviewed: Yes Surgical History: appendectomy, cholecystectomy, tonsillectomy, - - Right lower extremity surgery x3 as well as bone grafting, appendectomy, cholecystectomy, gastric bypass, hernia repairs, hip replacement, tonsillectomy. Lives: Alone Smoking Status: Current every day smoker Alcohol: None Drugs: None - Family History Sibling Family History: Family History (Last Reviewed 07/26/18 @ 14:02 by Wilma Mckay) Mother Heart disease Cancer Father Hypertension Arthritis Hyperlipemia Grandmother Breast cancer Heart disease Grandfather Heart disease Family History: Reports: Hypertension Maternal Family History: Family History (Last Reviewed 07/26/18 @ 14:02 by Wilma Mckay) Mother Heart disease Cancer Father Hypertension Arthritis Hyperlipemia Grandmother Breast cancer Heart disease Grandfather Heart disease Family History: Reports: Cancer, Heart Disease Paternal Family History: Family History (Last Reviewed 07/26/18 @ 14:02 by Wilma Mckay) Mother Heart disease Cancer Father Hypertension Arthritis Hyperlipemia Grandmother Breast cancer Heart disease Grandfather Heart disease Family History: Reports: Hypertension Review of Systems General: Denies: Chills, Fever, Malaise, Subjective, Sweats Eyes: Denies: Visual changes - bilaterally, Blurred Vision - bilaterally, Diplopia ENT: Denies: Bilateral ear pain, Rhinorrhea, Sore throat Cardiovascular: Denies: Chest pain, Palpitations, Heart racing Respiratory: Reports: Dyspnea, Cough, Sputum, Dyspnea on exertion. Denies: Orthopnea, Paroxysmal nocturnal dyspnea Gastrointestinal: Denies: Abdominal pain, Nausea, Vomiting, Diarrhea, Melena, Hematochezia Genitourinary: Denies: Dysuria, Hematuria, Frequency Musculoskeletal: Denies: Myalgias, Arthralgias, Neck pain, Back pain, Extremity Pain Skin: Denies: Rash, Wounds Neurological: Denies: Headache, Weakness, Parasthesia, Numbness Psych: Reports: Depression, Anxiety Endocrine: Denies: Polyuria, Polydipsia Hematologic: Denies: Easy bruising Physical Exam Vital Signs/Narrative: Vital Signs Temp Pulse Resp BP Pulse Ox 07/28/18 15:43 98.9 F 66 20 H 91/61 94 Inital Vital Signs reviewed: Yes General: Well nourished, Well developed, Obese, No Acute Distress Head: Normocephalic, Atraumatic Eyes: Perrl, EOMI. Negative for: Pale conjunctiva, Scleral icterus ENT: Moist mucous membranes, No rhinorrhea. Negative for: TM's clear Neck: Supple, Nontender Cardiovascular: Regular rate, Regular rhythm, No murmurs, Normal S1, Normal S2 Respiratory: No distress, Chest nontender, Wheezing, Decreased Air Movement. Negative for: CTA bilaterally Abdomen: Soft, Nontender, Nondistended, Normal bowel sounds, No masses Rectal: Deferred Back: Normal Inspection, - - Tenderness right lower back. Straight leg test negative on the right and left. Patella and ankle reflex are 1+ and symmetric. EHL is intact. Sensations intact. No weakness with dorsi plantarflexion of the foot. No quadricep weakness.. Negative for: Nontender, CVA tenderness, Spinal tenderness Extremities: Nontender, No edema Skin: Normal color, No rash. Negative for: Cyanosis, Jaundice Neurological: Alert, Oriented x3, Cranial nerves II-XII grossly intact, Normal Strength, Normal Sensation, Normal DTR Psychological: Normal affect, Normal Mood Diagnostic/Tx/Re-eval Chest X-Ray - ED: 2 View, Read by ED Physician, Unchanged - Unchanged from May 24, 2018., Normal, Bony Structures, No Acute Disease, - - Film is underpenetrated compared to comparison film dated May 24, 2018. There is mild atelectasis noted. Inspiratory volume is limited. - Rhythm Strip Rhythm Strip: Sinus Rhythm Rate: 68 Ectopy: None - Medical Decision Making Chest x-ray was obtained to evaluate exacerbate COPD. She was treated with DuoNeb and albuterol aerosols. She was medicated for her back pain. Since she has a normal neuro exam with no perianal numbness and no radicular pain imaging was not obtained nor is it indicated. Chest x-rays obtained to evaluate for pneumonia. Patient states she is unable to take more than 2 steps. Patient was informed that her back pain is muscular etiology and there is no indication for MRI and no historical or Zickel findings to suggest a herniated disc. Patient was given option for 23 observation. She asked me what do you want me to do. I again informed her options are to go home with prescription for pain medicine or 23 observation. Furthermore, she informed that every doctor is told her this is musculoskeletal pain. Patient was re-auscultated at 1840. Minimal expiratory wheezing noted. Cough is resolved. Will prescribe burst of prednisone for 5 days. And prescription for [place]. I was informed at 1847 patient wishes to stay in the hospital. Will call hospitalist and inform him of patient's history physical and reason for observation status. ED Disposition - Plan for ED Patient: Disposition: Acute Care Hospital [facility] Diagnosis: Acute exacerbation of chronic obstructive pulmonary disease (COPD), Right-sided low back pain without sciatica Referrals: Janel Taylor MD [Primary Care Provider] -
[2018-07-28 16:08] VITALS: PULSE 68; RESP 20
[2018-07-28] MEDS: Ipratropium/Albuterol Sulfate 3 ML AMPUL.NEB INHALATION (16:08)
[2018-07-28] MEDS: Albuterol 2.5 MG/3 ML VIAL.NEB. INHALATION ×3 (16:08)
[2018-07-28] MEDS: oxyCODONE 5 MG Tablet PO (16:30)
--- NOTE | 2018-07-28 17:03 | ED.RN ---
pt crying in the room. pt states that pain med that was given is not working. pt also asked for a sprite. mateo given to the pt and dr montes is aware. per dr montes no orders at this time. pt is aware
--- NOTE | 2018-07-28 18:51 | ED.VISSUMM ---
- ER Visit Summary Date of Service: 07/28/18 Chief Complaint: [] History of Present Illness: The patient is a 52 F [] Physical Examination: [] Test Results: [] Emergency Department Course and Treatment: [] Treatment Plan: [] Disposition: [] Impression: [] This note was generated with [employer] dictation software. It may contain incorrect words, spelling, and punctuation that were not noted in review of the chart prior to signing ED Disposition - Plan for ED Patient: Disposition: Acute Care Hospital [facility] Diagnosis: Acute exacerbation of chronic obstructive pulmonary disease (COPD), Right-sided low back pain without sciatica Prescriptions: Hydrocodone Bitart/Apap 5-325 [[place] 5MG-325MG] 1 tab PO Q6H PRN PRN 3 Days #10 tab PRN Reason: Pain Prednisone [Deltasone] 40 mg PO DAILY #10 tab Referrals: Janel Taylor MD [Primary Care Provider] - 3-5 Days
--- NOTE | 2018-07-28 18:54 | ED.VISSUMM ---
- ER Visit Summary Date of Service: 07/28/18 Chief Complaint: [] History of Present Illness: The patient is a 52 F [] Physical Examination: [] Test Results: [] Emergency Department Course and Treatment: [] Treatment Plan: [] Disposition: [] Impression: [] This note was generated with [employer] dictation software. It may contain incorrect words, spelling, and punctuation that were not noted in review of the chart prior to signing ED Disposition - Plan for ED Patient: Disposition: Acute Care Hospital [facility] Diagnosis: Acute exacerbation of chronic obstructive pulmonary disease (COPD), Right-sided low back pain without sciatica Instructions: ED Sprain Strain Lumbar, ED COPD Flare Prescriptions: Hydrocodone Bitart/Apap 5-325 [[place] 5MG-325MG] 1 tab PO Q6H PRN PRN 3 Days #10 tab PRN Reason: Pain Prednisone [Deltasone] 40 mg PO DAILY #10 tab Referrals: Janel Taylor MD [Primary Care Provider] - 3-5 Days
[2018-07-28] MEDS: predniSONE 20 MG Tablet 60 MG PO (19:09)
== END 2018-07-28 19:15 | disposition home or self-care (01) ==
PROVIDERS: Emergency Provider Emergency Medicine; Family Provider Family Medicine; PCP Family Medicine
DX: J44.1 Chronic obstructive pulmonary disease with (acute) exacerbation (principal); J96.21 Acute and chronic respiratory failure with hypoxia; M54.5 Low back pain; M48.061 Spinal stenosis, lumbar region without neurogenic claudication; I10 Essential (primary) hypertension; I27.20 Pulmonary hypertension, unspecified; I25.10 Atherosclerotic heart disease of native coronary artery without angina pectoris; E11.9 Type 2 diabetes mellitus without complications; E78.5 Hyperlipidemia, unspecified; D50.8 Other iron deficiency anemias; M19.90 Unspecified osteoarthritis, unspecified site; K21.9 Gastro-esophageal reflux disease without esophagitis; G47.33 Obstructive sleep apnea (adult) (pediatric); E66.01 Morbid (severe) obesity due to excess calories; F20.9 Schizophrenia, unspecified; F32.9 Major depressive disorder, single episode, unspecified; F17.200 Nicotine dependence, unspecified, uncomplicated; Z99.81 Dependence on supplemental oxygen; Z79.02 Long term (current) use of antithrombotics/antiplatelets; Z79.899 Other long term (current) drug therapy; Z88.0 Allergy status to penicillin; Z88.1 Allergy status to other antibiotic agents; Z88.2 Allergy status to sulfonamides; Z88.6 Allergy status to analgesic agent; Z98.84 Bariatric surgery status; Z90.49 Acquired absence of other specified parts of digestive tract
CPT/HCPCS: 71046; 94640; 99285

== ENCOUNTER → 2018-08-09 13:27 | Outpatient (CLI) | payer MEDICARE, SELFPAY ==
[2018-05-24 15:20] VITALS: BMI 39.2
[2018-07-28 15:43] VITALS: BMI 40.7
--- NOTE | 2018-08-09 13:33 | BD_ITS ---
STUDY: DUAL ENERGY X-RAY ABSORPTIOMETRY / DXA REASON FOR EXAM: Female, 52 years old. The patient is postmenopausal. Loss upright. TECHNIQUE: Bone Mineral Density (BMD) measurements of lumbar spine and left hip were obtained. COMPARISON: None. FINDINGS: Lumbar Spine (L1-L4): g/cm2 (1.004) / T-score (-1.4) / Z-score (-0.7) Findings are suggestive of osteopenia with a low fracture risk. Left Femur Total: g/cm2 (0.858) / T-score (-1.2) / Z-score (-0.6) Left Femoral Neck: g/cm2 (0.740) / T-score (-2.1) / Z-score (-1.2) BD/Dexa Bone Density Study IMPRESSION: The patient is considered osteopenic as outlined below according to World Dean Organization (WHO) criteria with a moderate fracture risk. Reference Information: The T-score is the number of standard deviations above or below the standard which is normal for young adults at their peak bone mineral density. The World Health Organization (WHO) interprets the T-scores as follows: Above -1 Normal bone density Between -1 and -2.5 Osteopenia Equal to / or below -2.5 Osteoporosis As a practical clinical guideline, osteopenia may be graded as follows: Mild -1 through -1.5 Moderate -1.6 through -2.0 Severe -2.1 through -2.4 The Z-score is the number of standard deviations above or below age-matched controls. A Z-score of less than -1.5 would be considered abnormal. References: 1. NIH Osteoporosis and Related Bone Diseases http://www.osteo.org 2. International Society for Clinical Densitometry http://www.iscd.org 3. National Osteoporosis Foundation http://www.nof.org Electronically Signed: Manuelito Silva, at 9:15 EDT , Service support ,
== END ==
PROVIDERS: Family Provider Family Medicine; PCP Family Medicine; Visit Provider Family Medicine
DX: S32.010A Wedge compression fracture of first lumbar vertebra, initial encounter for closed fracture (principal); M85.80 Other specified disorders of bone density and structure, unspecified site; D50.8 Other iron deficiency anemias
CPT/HCPCS: 36415; 77080; 80053; 82607; 82728; 82746; 83540; 83550; 85025

== ENCOUNTER 2018-08-17 20:28 | Emergency (ER) | payer MEDICARE, SELFPAY ==
[2018-08-13 12:59] VITALS: BMI 41.4
[2018-08-17 20:29] VITALS: BP 126/85; PULSE 88; RESP 18; TEMP 36.6; O2SAT 96; BMI 41.1
--- NOTE | 2018-08-17 20:42 | RAD_ITS ---
HISTORY: Right hip pain. Surgery 3 years ago. 4 images of the right femur. Of the patient's 9 the previous radiologic exams at this institution, the most recent comparison at least the proximal right femur is from May 13, 2018. Findings: Right hip prosthesis is present. The acetabular component is screwed in place. The femoral component is long extending down arm to the proximal third diaphysis of the femur, and past the mid diaphysis of the femur. It is in similar position to the previous study. No evidence of acute fracture. There is evidence for some fraying of some wires to the cerclage wire that is around the inferior portion of the prosthesis, the inferior of the 2 cerclage wires. The fraying and displacement of these wires has progressed as the previous study. Atherosclerotic plaque within the SFA persists. Screw holes within the distal femur from previous hardware placement and removal are present. Some knee arthritis is present. RAD/Femur Min 2 Views IMPRESSION: No evidence of loosening or displacement to right hip prosthesis. No acute fracture. The patient has 2 cerclage wires around the proximal femur and the prosthesis. There is fraying of one of the cerclage wires, the inferior 2 wires. There is some displacement of these frayed wire fragments into the dorsal lateral soft tissues, inferior to the cerclage wire. It is possible these are causing irritation and inflammation to the adjacent soft tissues at 7135 Reported and signed by: Elmer Romero MD Electronically Signed: Elmer Romero MD at 21:17 EDT Tel , Service support ,
--- NOTE | 2018-08-17 20:42 | RAD_ITS ---
HISTORY: RIGHT HIP PAIN, HIP SURGERY 3 YRS AGO. EXAM: Pelvis COMPARISON: Of the patient The previous radiologic exams, the most recent AP pelvis is from May 13, 2018. FINDINGS: # of images incl. paperwork: 1 Right total hip prosthesis remains in place. Screwed in acetabular component is unchanged. A cerclage wire is present around the proximal right femur. Degenerative disc disease is present at the L4-L5 and L5-S1 levels. Pelvic phleboliths are present. No acute fracture is perceived. No loosening of the prosthesis is perceived. The prosthesis is not completely imaged within its femoral component. Within the left paraspinal region on the frontal image, at the level of the L4-L5 disc space, there is a 2.6 cm cortically calcified lesion. Whether this lesion is within the bowel, within the left renal collecting system, on the skin, within the skin, diverticular disease, I cannot differentiate. It was not identified on May 13, 2018 pelvic exam. Is not identified on a April 26, 2018 lumbar spine frontal image. RAD/Pelvis 1 or 2 Views IMPRESSION: No evidence of fracture or loosening about the right hip prosthesis. The femoral component is incompletely demonstrated, but will be more completely evaluated on the femoral views also obtained today. at 2115 Reported and signed by: Elmer Romero MD Electronically Signed: Elmer Romero MD at 21:14 EDT Tel , Service support ,
--- NOTE | 2018-08-17 20:50 | ED.DCSUM_ITS ---
- ER Visit Summary Date of Service: 08/17/18 Chief Complaint: Acute on chronic right hip pain status post prior femur fracture with surgical repair and right hip prosthesis History of Present Illness: The patient is a 53 F history of coronary disease with prior MA and cardiac stents. Also diabetic. In 2016 patient had a right hip prosthesis. She is also had a right femur fracture was surgically repaired. She states in 2016 ever since her right hip is been replaced is never been right and she has intermittent chronic pain. States the last 1 to 2 weeks she is had more pain with ambulation. Denies any fall or trauma. She says it feels like her hip is catching. After surgery in 2016 while she was in rehabilitation she did have one prior hip dislocation but has not had that since that time. She has had no revisionary hip surgeries after the initial one. Physical Examination: Middle-aged female. No acute distress. Vital signs are stable afebrile. H EENT exam unremarkable. Lungs clear to auscultation. Heart regular rhythm no murmur. Abdomen is soft and nontender. Extremities she is moving all 4. There are neurovascular intact. She has normal dorsi and plantar flexion. Calves are nontender without edema. Upper extremities are unremarkable. Her right hip she complains of discomfort. There is no obvious deformity. No obvious dislocation. She is able to do flexion and extension of the right hip but it is somewhat limited due to pain. Neurologically she is awake and alert with no focal motor deficits no weakness. Test Results: Right hip and pelvis x-rays 1 view showed no acute abnormality. Prosthesis in good position. Next line right femur showed the right hip prosthesis in good position. No acute abnormality. Radiologist did mention fraying of the cerclage wires. That is not what is causing her hip pain. I did go over the x-rays with the patient. Emergency Department Course and Treatment: Patient has acute on chronic condition. I obtained x-rays of her right hip, pelvis and femur. Treatment Plan: Very important to call and follow-up with her orthopedic physician to have her right hip prosthesis reevaluated. Repeat exam she is doing well we discharged home to follow-up with her orthopedic physicians at the [facility]. Disposition: Discharge Impression: Acute on chronic right hip pain of uncertain etiology That is post right hip replacement and right femur fracture surgical repair years ago This note was generated with [employer] software. It may contain incorrect words, spelling, and punctuation that were not noted in review of the chart prior to signing ED Disposition - Plan for ED Patient: Referrals: Janel Taylor MD [Primary Care Provider] -
--- NOTE | 2018-08-17 21:38 | ED.DEP ---
ED Disposition - Plan for ED Patient: Disposition: Home or Assisted Living Referrals: Janel Taylor MD [Primary Care Provider] - As Needed Additional Instructions: Call and follow-up with your [facility] orthopedic physician to have your right hip prosthesis and hip pain reevaluated. Tonight there is nothing specific on the x-rays that shows what the cause of your pain is. There is no dislocation.
[2018-08-17 21:43] VITALS: RESP 18
[2018-08-17] MEDS: HYDROcodone Bitartrate/Apap 5/325 Tablet PO (21:44)
== END 2018-08-17 21:44 | disposition home or self-care (01) ==
PROVIDERS: Emergency Provider Emergency Medicine; Family Provider Family Medicine; PCP Family Medicine
DX: M25.551 Pain in right hip (principal); G89.29 Other chronic pain; I25.10 Atherosclerotic heart disease of native coronary artery without angina pectoris; J44.9 Chronic obstructive pulmonary disease, unspecified; E11.9 Type 2 diabetes mellitus without complications; I10 Essential (primary) hypertension; Z72.0 Tobacco use; I25.2 Old myocardial infarction; Z79.02 Long term (current) use of antithrombotics/antiplatelets; Z79.899 Other long term (current) drug therapy; Z96.641 Presence of right artificial hip joint; Z95.5 Presence of coronary angioplasty implant and graft
CPT/HCPCS: 72170; 73552; 99283

== ENCOUNTER 2018-08-18 13:54 | Emergency (ER) | payer MEDICARE, SELFPAY ==
[2018-08-17 20:29] VITALS: BMI 41.1
[2018-08-18 13:56] VITALS: BP 141/77; PULSE 63; RESP 18; TEMP 36.7; O2SAT 96; BMI 42.1
--- NOTE | 2018-08-18 14:34 | ED.VIS.GEN ---
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 Patient seen here yesterday for similar symptoms. At that time she had an x-ray of right hip that was negative and was discharged home. Patient presents again today for worsening pain. She states that she is only able to take Tylenol at home for pain and nothing else. She was in pain management previously but states she was taking her pills too frequently and was thrown out of pain management. She denies falls trauma or injury. She denies numbness tingling or weakness. She denies loss of bowel or bladder function or difficulty urinating or constipation. Denies constitutional symptoms. Prior similar symptoms: Yes Recent Illness/Hospitalization: Yes Past Medical History - Allergies and Home Meds Allergies/Adverse Reactions: Allergies amoxicillin Allergy (Verified 08/18/18 13:55) Itching clarithromycin [From Biaxin] Allergy (Verified 08/18/18 13:55) Unknown erythromycin base Allergy (Verified 08/18/18 13:55) Unknown methadone Allergy (Verified 08/18/18 13:55) Itching metolazone Allergy (Verified 08/18/18 13:55) Unknown Penicillins Allergy (Verified 08/18/18 13:55) Hives Sulfa (Sulfonamide Antibiotics) Allergy (Verified 08/18/18 13:55) Hives ibuprofen Adverse Reaction (Verified 08/18/18 13:55) Other morphine Adverse Reaction (Verified 08/18/18 13:55) Other Primary Care Physician: Janel Taylor MD [Primary Care Provider] - Prior records reviewed: Yes Surgical History: appendectomy, cholecystectomy, tonsillectomy, - - Right lower extremity surgery x3 as well as bone grafting, appendectomy, cholecystectomy, gastric bypass, hernia repairs, hip replacement, tonsillectomy. Smoking Status: Heavy Smoker (>10/day) - Family History Sibling Family History: Family History (Last Reviewed 08/13/18 @ 12:58 by Tricia Barajas) Mother Heart disease Cancer Father Hypertension Arthritis Hyperlipemia Grandmother Breast cancer Heart disease Grandfather Heart disease Family History: Reports: Hypertension Maternal Family History: Family History (Last Reviewed 08/13/18 @ 12:58 by Tricia Barajas) Mother Heart disease Cancer Father Hypertension Arthritis Hyperlipemia Grandmother Breast cancer Heart disease Grandfather Heart disease Family History: Reports: Cancer, Heart Disease Paternal Family History: Family History (Last Reviewed 08/13/18 @ 12:58 by Tricia Barajas) Mother Heart disease Cancer Father Hypertension Arthritis Hyperlipemia Grandmother Breast cancer Heart disease Grandfather Heart disease Family History: Reports: Hypertension Review of Systems All systems negative except as indicated General: Denies: Chills, Fever Musculoskeletal: Reports: Extremity Pain Physical Exam Vital Signs/Narrative: Vital Signs Temp Pulse Resp BP Pulse Ox 08/18/18 13:56 98.1 F 63 18 141/77 H 96 Inital Vital Signs reviewed: Yes General: Well nourished, Well developed, No Acute Distress Head: Normocephalic, Atraumatic Eyes: Perrl, EOMI ENT: Moist mucous membranes Neck: Supple, Nontender Cardiovascular: Regular rate, Regular rhythm Respiratory: No distress, CTA bilaterally, Chest nontender Abdomen: Soft, Nontender, Nondistended, Normal bowel sounds, No masses Back: Normal Inspection, - - Right paraspinal lumbar tenderness on palpation. No midline tenderness. Normal lower extremity pulses and sensation. Normal lower extremity reflexes bilaterally. In both lower extremities. Extremities: Nontender - Patient has a normal inspection of the right hip. There is no swelling or redness. It is nontender on palpation., No edema Skin: Normal color, No rash Diagnostic/Tx/Re-eval - Medical Decision Making Patient's exam is consistent with sciatica. She has pain over the sciatic notch. She has a positive straight leg raise on the right. She has no lower extremity weakness, or diminished reflexes. This is a acute exacerbation of her chronic sciatica. No evidence of acute disc herniation that would require imaging in the emergency department. Discussed with patient that she will not be able to have a prescription for narcotic for home due to her having 20 prescribers on her [facility] report. She was given 1 hydrocodone in the emergency department. We will prescribe prednisone for home she is unable to take NSAIDs due to her history of gastric bypass. She will follow-up with her doctor in the next 2 to 3 days. We discussed return precautions. She was agreeable with our plan. Discharged ED Disposition - Plan for ED Patient: Disposition: Home or Assisted Living Diagnosis: Sciatica Instructions: ED Sciatica Prescriptions: Prednisone [Deltasone] 40 mg PO DAILY #10 tab Referrals: Janel Taylor MD [Primary Care Provider] -
[2018-08-18] MEDS: predniSONE 20 MG Tablet 60 MG PO (14:47)
[2018-08-18] MEDS: HYDROcodone Bitartrate/Apap 5/325 Tablet PO (14:47)
--- NOTE | 2018-08-18 15:41 | ED.DEP ---
ED Disposition - Plan for ED Patient: Disposition: Home or Assisted Living Diagnosis: Sciatica Instructions: ED Sciatica Prescriptions: Hydrocodone Bitart/Apap 5-325 [[employer] 5MG-325MG] 1 tablet PO Q6H PRN PRN 3 Days #4 tablet PRN Reason: Pain Prednisone [Deltasone] 40 mg PO DAILY #10 tab Referrals: Janel Taylor MD [Primary Care Provider] -
[2018-08-18 16:00] VITALS: PULSE 66; RESP 17; O2SAT 95
== END 2018-08-18 16:01 | disposition home or self-care (01) ==
PROVIDERS: Emergency Provider Physician Assistant Medical; Family Provider Family Medicine; PCP Family Medicine
DX: M54.30 Sciatica, unspecified side (principal); M25.551 Pain in right hip; G89.29 Other chronic pain; I25.10 Atherosclerotic heart disease of native coronary artery without angina pectoris; J44.9 Chronic obstructive pulmonary disease, unspecified; I10 Essential (primary) hypertension; E11.9 Type 2 diabetes mellitus without complications; G47.33 Obstructive sleep apnea (adult) (pediatric); K21.9 Gastro-esophageal reflux disease without esophagitis; F20.9 Schizophrenia, unspecified; E66.9 Obesity, unspecified; F17.200 Nicotine dependence, unspecified, uncomplicated; Z79.02 Long term (current) use of antithrombotics/antiplatelets; Z79.899 Other long term (current) drug therapy; Z88.1 Allergy status to other antibiotic agents; Z88.0 Allergy status to penicillin; Z88.2 Allergy status to sulfonamides; Z88.6 Allergy status to analgesic agent; Z98.84 Bariatric surgery status; Z96.641 Presence of right artificial hip joint; Z90.49 Acquired absence of other specified parts of digestive tract
CPT/HCPCS: 99285

== ENCOUNTER 2018-08-19 12:35 | Emergency (ER) | payer MEDICARE, SELFPAY ==
[2018-08-18 13:56] VITALS: BMI 42.1
[2018-08-19 12:35] VITALS: BP 128/84; PULSE 77; RESP 16; TEMP 36.9; O2SAT 96; BMI 42.6
--- NOTE | 2018-08-19 13:20 | ED.VIS.GEN ---
History of Present Illness <Hema Feng - Last Filed: 08/19/18 13:27> Informant: Patient Onset: Today Context: Sudden Onset Timing: Continuous Quality: sharp Location: right hip and back Current Severity: Severe Maximum Severity: Severe Worsened by: movement Relieved by: nothing Associated Symptoms: denies Narrative: 53-year-old female with a history of chronic back pain and chronic right hip pain presents to the emergency department with an acute exacerbation of her chronic pain. This is the third consecutive day the patient is come to the emergency department. She is requesting a prescription for narcotics. Patient was advised yesterday and the day before that this would be unable to be provided due to her history of multiple prescribers for narcotics and being kicked out of pain management. She has no injury or trauma. She has no weakness numbness or paresthesias. She has not lost control of her bowel or bladder function. She has not had difficulty urinating. Prior similar symptoms: Yes Recent Illness/Hospitalization: No <Lopez Bradley - Last Filed: 08/19/18 13:34> Chief Complaint: Lower Extremity Injury Past Medical History - Family History Sibling Family History: Family History (Last Reviewed 08/13/18 @ 12:58 by Tricia Barajas) Mother Heart disease Cancer Father Hypertension Arthritis Hyperlipemia Grandmother Breast cancer Heart disease Grandfather Heart disease Maternal Family History: Family History (Last Reviewed 08/13/18 @ 12:58 by Tricia Barajas) Mother Heart disease Cancer Father Hypertension Arthritis Hyperlipemia Grandmother Breast cancer Heart disease Grandfather Heart disease Paternal Family History: Family History (Last Reviewed 08/13/18 @ 12:58 by Tricia Barajas) Mother Heart disease Cancer Father Hypertension Arthritis Hyperlipemia Grandmother Breast cancer Heart disease Grandfather Heart disease <Hema Feng - Last Filed: 08/19/18 13:27> Prior records reviewed: Yes Surgical History: appendectomy, cholecystectomy, tonsillectomy, - - Right lower extremity surgery x3 as well as bone grafting, appendectomy, cholecystectomy, gastric bypass, hernia repairs, hip replacement, tonsillectomy. Smoking Status: Heavy Smoker (>10/day) - Family History Sibling Family History: Family History (Last Reviewed 08/13/18 @ 12:58 by Tricia Barajas) Mother Heart disease Cancer Father Hypertension Arthritis Hyperlipemia Grandmother Breast cancer Heart disease Grandfather Heart disease Family History: Reports: Hypertension Maternal Family History: Family History (Last Reviewed 08/13/18 @ 12:58 by Tricia Barajas) Mother Heart disease Cancer Father Hypertension Arthritis Hyperlipemia Grandmother Breast cancer Heart disease Grandfather Heart disease Family History: Reports: Cancer, Heart Disease Paternal Family History: Family History (Last Reviewed 08/13/18 @ 12:58 by Tricia Barajas) Mother Heart disease Cancer Father Hypertension Arthritis Hyperlipemia Grandmother Breast cancer Heart disease Grandfather Heart disease Family History: Reports: Hypertension <Lopez Bradley - Last Filed: 08/19/18 13:34> - Allergies and Home Meds Allergies/Adverse Reactions: Allergies amoxicillin Allergy (Verified 08/19/18 12:39) Itching clarithromycin [From Biaxin] Allergy (Verified 08/19/18 12:39) Unknown erythromycin base Allergy (Verified 08/19/18 12:39) Unknown methadone Allergy (Verified 08/19/18 12:39) Itching metolazone Allergy (Verified 08/19/18 12:39) Unknown Penicillins Allergy (Verified 08/19/18 12:39) Hives Sulfa (Sulfonamide Antibiotics) Allergy (Verified 08/19/18 12:39) Hives ibuprofen Adverse Reaction (Verified 08/19/18 12:39) Other morphine Adverse Reaction (Verified 08/19/18 12:39) Other Primary Care Physician: Janel Taylor MD [Primary Care Provider] - Review of Systems All systems negative except as indicated Musculoskeletal: Reports: Back pain, Extremity Pain <Lopez Bradley - Last Filed: 08/19/18 13:34> Physical Exam Vital Signs/Narrative: Vital Signs Temp Pulse Resp BP Pulse Ox 08/19/18 12:35 98.5 F 77 16 128/84 H 96 <Hema Feng - Last Filed: 08/19/18 13:27> Vital Signs/Narrative: Vital Signs Temp Pulse Resp BP Pulse Ox 08/19/18 12:35 98.5 F 77 16 128/84 H 96 Inital Vital Signs reviewed: Yes General: Well nourished, Well developed, No Acute Distress Head: Normocephalic, Atraumatic Eyes: Perrl, EOMI ENT: Moist mucous membranes Neck: Supple, Nontender Cardiovascular: Regular rate, Regular rhythm Respiratory: No distress, CTA bilaterally, Chest nontender Abdomen: Soft, Nontender, Nondistended, Normal bowel sounds, No masses Back: Nontender, Normal Inspection Extremities: - - Normal inspection of the right lower extremity. There is no swelling redness warmth signs of trauma or infection. She has normal range of motion actively. Strength is 5 out of 5 throughout the right lower extremity. She is neurovascularly intact. Neurological: Alert, Oriented x3, Cranial nerves II-XII grossly intact, Normal Strength, Normal Sensation, Normal DTR, Normal Gait <Lopez Bradley - Last Filed: 08/19/18 13:34> Diagnostic/Tx/Re-eval - Medical Decision Making Patient has had several recent emergency department visits. She states she is having right hip pain. She has had a total right hip prosthesis. She is requesting pain medication which I explained to her this is really not something to put her on chronic narcotic pain meds. She has a orthopedic physician at the [facility] and she needs to be reevaluated by them. X-rays have been done last several days showing no acute abnormality with her prior prosthesis. Vital signs are stable. Afebrile. She has normal range of motion. There is no swelling of the right hip. There is no cellulitis. Acute right hip pain of uncertain etiology Status post right hip prosthesis <Hema Feng - Last Filed: 08/19/18 13:27> ED Disposition <Hema Feng - Last Filed: 08/19/18 13:27> <Lopez Bradley - Last Filed: 08/19/18 13:34> - Plan for ED Patient: Disposition: Home or Assisted Living Diagnosis: Hip osteoarthritis Instructions: ED Chronic Pain Management Referrals: Janel Taylor MD [Primary Care Provider] -
[2018-08-19] MEDS: HYDROcodone Bitartrate/Apap 5/325 Tablet PO (13:33)
--- NOTE | 2018-08-19 14:25 | ED.RN ---
called [facility] for pt after she stated she cannot get a ride home. no money- RN paid for pt. pt was able to ambulate to [facility] and to wheelchair.
== END 2018-08-19 14:26 | disposition home or self-care (01) ==
PROVIDERS: Emergency Provider Physician Assistant Medical; Family Provider Family Medicine; PCP Family Medicine
DX: M16.11 Unilateral primary osteoarthritis, right hip (principal); M25.551 Pain in right hip; G89.29 Other chronic pain; F17.200 Nicotine dependence, unspecified, uncomplicated; Z79.02 Long term (current) use of antithrombotics/antiplatelets; Z79.899 Other long term (current) drug therapy; Z88.1 Allergy status to other antibiotic agents; Z88.0 Allergy status to penicillin; Z88.2 Allergy status to sulfonamides; Z88.6 Allergy status to analgesic agent; Z98.84 Bariatric surgery status; Z96.641 Presence of right artificial hip joint; Z90.49 Acquired absence of other specified parts of digestive tract
CPT/HCPCS: 99284

== ENCOUNTER 2018-08-23 10:24 | Day surgery (SDC) | payer MEDICARE, SELFPAY ==
[2018-08-23 10:40] VITALS: BP 152/74; PULSE 62; RESP 18; TEMP 36.5; O2SAT 98; BMI 41.4
[2018-08-23 11:10] LABS: Bedside Glucose 149 mg/dL (70-110)
[2018-08-23] MEDS: Tetracaine 0.5% Ophthalmic Bottle 1 DRP (12:06)
--- NOTE | 2018-08-23 12:34 | DCINST_ITS ---
Allergies/Adverse Reactions: Allergies amoxicillin Allergy (Verified 08/19/18 12:39) Itching clarithromycin [From Biaxin] Allergy (Verified 08/19/18 12:39) Unknown erythromycin base Allergy (Verified 08/19/18 12:39) Unknown methadone Allergy (Verified 08/19/18 12:39) Itching metolazone Allergy (Verified 08/19/18 12:39) Unknown Penicillins Allergy (Verified 08/19/18 12:39) Hives Sulfa (Sulfonamide Antibiotics) Allergy (Verified 08/19/18 12:39) Hives ibuprofen Adverse Reaction (Verified 08/19/18 12:39) Other morphine Adverse Reaction (Verified 08/19/18 12:39) Other Medications to take at Discharge Atorvastatin Calcium [Lipitor] 80 mg PO QHS 08/22/15 Clopidogrel Bisulfate [Plavix] 75 mg PO DAILY 08/22/15 Metoprolol(XL)Succ [Toprol Xl (Beta Trino)] 50 mg PO DAILY 08/22/15 Nitroglycerin 0.4 mg SL PRN PRN 11/08/16 Duloxetine Hcl [Cymbalta] 120 mg PO DAILY 01/16/17 amlodipine 10 mg tablet 20 mg PO DAILY tab 05/02/17 lisinopril 20 mg tablet 20 mg PO QHS #30 tab 05/02/17 potassium chloride ER 10 mEq tablet,extended release(part/cryst) 10 meq PO DAILY #60 tab 06/16/17 Omeprazole 40 mg PO DAILY 03/08/18 Oxybutynin Chloride [Oxybutynin Chloride ER] 15 mg PO DAILY 03/08/18 Pregabalin [Lyrica] 75 mg PO TID 03/08/18 Risperidone 4 mg PO QHS 03/08/18 Tizanidine HCl 6 mg PO TID PRN PRN 03/08/18 traZODone [Desyrel] 200 mg PO QHS 03/08/18 Buspirone HCl 30 mg PO BID 04/13/18 montelukast 10 mg tablet 10 mg PO QHS #30 tab 04/20/18 albuterol sulfate HFA 90 mcg/actuation aerosol inhaler 2 puff INHALATION Q4H PRN PRN #18 g 05/15/18 tiotropium bromide 2.5 mcg/actuation mist for inhalation 2 puff INHALATION DAILY #1 device 07/02/18 varenicline 1 mg tablet 1 mg PO BID 84 Days #168 tab 07/26/18 fluticasone propionate-salmeterol 230 mcg-21 mcg/actuation HFA inhaler 2 puff INHALATION BID #12 g 08/09/18 Sucralfate [Carafate] 1 gm PO 4X/DAY 08/16/18 Prednisone [Deltasone] 40 mg PO DAILY #10 tab 08/18/18 Albuterol Aerosols [Ventolin Aerosols] 2.5 mg INHALATION Q4H PRN 08/19/18 Cataract Instructions: -Take a pain reliever such as Tylenol, Aspirin or Ibuprofen if needed for eye aching or pain. If this is not enough relief for you pain, call your doctor (or the doctor senior information systems architect), even at night. -You are scheduled for a follow-up appointment at [facility] the day after surgery. You should have someone drive you. -Transient pain and irritation are due to the incision that was made at the time of surgery and do not indicate any trouble. Our office numbers are . If there is no answer, or if it is after our normal business hours, call your surgeon. My home phone number is: Dr. Tiara Tolentino INSTRUCTIONS FOLLOWING TOPICAL ANESTHETIC CATARACT SURGERY Protect operated eye with glasses or metal shield at all times. Instill one drop of Polytrim (or other antibiotic drop), one drop of Prednisolone and one drop of Acular in the operated eye four times a day (breakfast, lunch, dinner, and bedtime) until the doctor tells you to quit or decrease them. Wait 3-5 minutes between each drop. Please begin these immediately upon arriving at home. if your surgery is in t he afternoon, try to use the drops at least three more times the day of surgery and again the following morning before your appointment. INSTRUCTIONS FOLLOWING RETROBULBAR CATARACT SURGERY Keep the eye patch and metal shield on until you see your surgeon the day after surgery - these will be removed in the office that day. Do not drive while the patch is on your eye. You will be instructed about the use of drops for the operated eye at that visit. Primary Care Physician: Janel Taylor MD [Primary Care Provider] -
[2018-08-23 12:35] VITALS: BP 130/68; BP 152/74; PULSE 70; RESP 16; TEMP 36.2; O2SAT 99
--- NOTE | 2018-08-23 12:35 | PCM.OPRPT ---
Problem List (1) Cataract Status: Acute Qualifiers: Cataract type: age-related Age-related cataract type: combined forms Laterality: right Qualified Code(s): H25.811 - Combined forms of age-related cataract, right eye Report of Operation Date of Procedure: 08/23/18 Pre-Operative Diagnosis: Cataract Right Eye Post-Operative Diagnosis: same Surgery/Procedure Performed:: PEM IOL OD Description of Surgical Findings:: cataract Type of Anesthesia:: MAC, Topical Specimen's removed: none Estimated Blood Loss (mL): none Description of Procedure: The patient was brought to the operating room where a time out was performed prior to the start of the procedure. Anesthesia team induced light sedation. The eye was prepped and draped in the usual sterile fashion for eye surgery. A kleber blade was used to create a paracentesis incision at the superotemporal limbus. Preservative free lidocaine was instilled into the anterior chamber. Viscoat was introduced into the anterior chamber. A keratome was used to create a clear corneal biplanar incision at the temporal limbus. A cystotome was used to begin the capsulorrhexis which was completed in a continuous curvilinear fashion using the capsulorhexis forceps. BSS on a marshall cannula was used to hydrate the lens beneath the lens capsule until the lens was noted to be freely mobile in the capsular bag. Phacoemulsification was used to remove the lens in a divide and conquer technique. The remaining cortical material was removed using irrigation and aspiration. The capsular bag was noted to be completely intact. Provisc was used to inflate the capsular bag and a 17.0 tecnis PCBOO lens was placed into the capsular bag and adjusted with a iván hook. The remaining viscoelastic material was removed. Wounds were hydrated and a 10-0 nylon suture was used to secure the main incision. The patient left the room in a stable condition with instructions to follow up in the clinic the following day. - Complications none
[2018-08-23 12:40] VITALS: BP 147/78; BP 152/74; PULSE 72; RESP 16; O2SAT 97
[2018-08-23 12:43] VITALS: BP 145/73; BP 152/74; PULSE 72; RESP 16; O2SAT 94
[2018-08-23 12:46] VITALS: BP 145/73; BP 152/74; PULSE 71; RESP 16; TEMP 36.6; O2SAT 94
[2018-08-23 13:11] VITALS: BP 152/74
== END 2018-08-23 13:16 | disposition home or self-care (01) ==
LOC: SDC 10:27 → AC 10:27
PROVIDERS: Family Provider Family Medicine; PCP Family Medicine; Referring Provider Ophthalmology; Visit Provider Ophthalmology
PROC: (CPT 66984; principal; 2018-08-23 11:20)
DX: H25.811 Combined forms of age-related cataract, right eye (principal); H18 Other disorders of cornea; H43.813 Vitreous degeneration, bilateral; E11.9 Type 2 diabetes mellitus without complications; J44.9 Chronic obstructive pulmonary disease, unspecified; I10 Essential (primary) hypertension; E78.00 Pure hypercholesterolemia, unspecified; D64.9 Anemia, unspecified; K21.9 Gastro-esophageal reflux disease without esophagitis; Z78.0 Asymptomatic menopausal state; I25.2 Old myocardial infarction; F17.200 Nicotine dependence, unspecified, uncomplicated; Z79.84 Long term (current) use of oral hypoglycemic drugs; Z79.02 Long term (current) use of antithrombotics/antiplatelets; Z79.899 Other long term (current) drug therapy; Z95.5 Presence of coronary angioplasty implant and graft
CPT/HCPCS: 66984; 82962; J2405

== ENCOUNTER 2018-09-13 09:35 | Day surgery (SDC) | payer MEDICARE, SELFPAY ==
[2018-09-13] VITALS (10 sets, daily range): BP systolic 139–172; BP diastolic 75–93; PULSE 80–95; RESP 16–18; TEMP 36.1–36.3; O2SAT 92–96; BMI 39.5
[2018-09-13 10:51] LABS: Bedside Glucose 161 mg/dL (70-110)
[2018-09-13] MEDS: Tetracaine 0.5% Ophthalmic Bottle 1 DRP OP (12:20)
[2018-09-13] MEDS: Povidone Iodine 30 ML Opthalmic Sol 1 DRP (12:24)
--- NOTE | 2018-09-13 12:49 | SUR.OPER ---
[place] time 3.5@8.5%
--- NOTE | 2018-09-13 12:52 | PCM.DC.CATCL ---
Allergies/Adverse Reactions: Allergies amoxicillin Allergy (Verified 09/03/18 13:41) Itching clarithromycin [From Biaxin] Allergy (Verified 09/03/18 13:41) Unknown erythromycin base Allergy (Verified 09/03/18 13:41) Unknown methadone Allergy (Verified 09/03/18 13:41) Itching metolazone Allergy (Verified 09/03/18 13:41) Unknown Penicillins Allergy (Verified 09/03/18 13:41) Hives Sulfa (Sulfonamide Antibiotics) Allergy (Verified 09/03/18 13:41) Hives ibuprofen Adverse Reaction (Verified 09/03/18 13:41) Other morphine Adverse Reaction (Verified 09/03/18 13:41) Other Medications to take at Discharge Atorvastatin Calcium [Lipitor] 80 mg PO QHS 08/22/15 Clopidogrel Bisulfate [Plavix] 75 mg PO DAILY 08/22/15 Metoprolol(XL)Succ [Toprol Xl (Beta Trino)] 50 mg PO DAILY 08/22/15 Nitroglycerin 0.4 mg SL PRN PRN 11/08/16 Duloxetine Hcl [Cymbalta] 120 mg PO DAILY 01/16/17 amlodipine 10 mg tablet 20 mg PO DAILY tab 05/02/17 lisinopril 20 mg tablet 20 mg PO QHS #30 tab 05/02/17 potassium chloride ER 10 mEq tablet,extended release(part/cryst) 10 meq PO DAILY #60 tab 06/16/17 Omeprazole 40 mg PO DAILY 03/08/18 Oxybutynin Chloride [Oxybutynin Chloride ER] 15 mg PO DAILY 03/08/18 Pregabalin [Lyrica] 75 mg PO TID 03/08/18 Risperidone 4 mg PO QHS 03/08/18 Tizanidine HCl 6 mg PO TID PRN PRN 03/08/18 traZODone [Desyrel] 200 mg PO QHS 03/08/18 Buspirone HCl 30 mg PO BID 04/13/18 montelukast 10 mg tablet 10 mg PO QHS #30 tab 04/20/18 albuterol sulfate HFA 90 mcg/actuation aerosol inhaler 2 puff INHALATION Q4H PRN PRN #18 g 05/15/18 tiotropium bromide 2.5 mcg/actuation mist for inhalation 2 puff INHALATION DAILY #1 device 07/02/18 varenicline 1 mg tablet 1 mg PO BID 84 Days #168 tab 07/26/18 fluticasone propionate-salmeterol 230 mcg-21 mcg/actuation HFA inhaler 2 puff INHALATION BID #12 g 08/09/18 Sucralfate [Carafate] 1 gm PO 4X/DAY 08/16/18 Prednisone [Deltasone] 40 mg PO DAILY #10 tab 08/18/18 Albuterol Aerosols [Ventolin Aerosols] 2.5 mg INHALATION Q4H PRN 08/19/18 Ketorolac Tromethamine [Acular LS] 1 drp 4X/DAY 09/03/18 prednisoLONE eye drops (1 mL) [Pred Forte eye drops (1 mL)] 1 drp RIGHT EYE BID 09/03/18 Cataract Instructions: -Take a pain reliever such as Tylenol, Aspirin or Ibuprofen if needed for eye aching or pain. If this is not enough relief for you pain, call your doctor (or the doctor protection mgr), even at night. -You are scheduled for a follow-up appointment at [facility] the day after surgery. You should have someone drive you. -Transient pain and irritation are due to the incision that was made at the time of surgery and do not indicate any trouble. Our office numbers are . If there is no answer, or if it is after our normal business hours, call your surgeon. My home phone number is: Dr. Tiara Tolentino INSTRUCTIONS FOLLOWING TOPICAL ANESTHETIC CATARACT SURGERY Protect operated eye with glasses or metal shield at all times. Instill one drop of Polytrim (or other antibiotic drop), one drop of Prednisolone and one drop of Acular in the operated eye four times a day (breakfast, lunch, dinner, and bedtime) until the doctor tells you to quit or decrease them. Wait 3-5 minutes between each drop. Please begin these immediately upon arriving at home. if your surgery is in t he afternoon, try to use the drops at least three more times the day of surgery and again the following morning before your appointment. INSTRUCTIONS FOLLOWING RETROBULBAR CATARACT SURGERY Keep the eye patch and metal shield on until you see your surgeon the day after surgery - these will be removed in the office that day. Do not drive while the patch is on your eye. You will be instructed about the use of drops for the operated eye at that visit. Primary Care Physician: Janel Taylor MD [Primary Care Provider] -
--- NOTE | 2018-09-13 12:52 | PCM.OPRPT ---
Problem List (1) Cataract Status: Acute Qualifiers: Age-related cataract type: combined forms Laterality: left Report of Operation Date of Procedure: 09/13/18 Pre-Operative Diagnosis: Cataract Left Eye Post-Operative Diagnosis: same Surgery/Procedure Performed:: PEM IOL OS Description of Surgical Findings:: cataract Type of Anesthesia:: MAC and Topical Anesth Estimated Blood Loss (mL): none Description of Procedure: Indications for procedure: 53 yo female with history of worsening vision in the left eye secondary to cataract. After discussion of risks, benefits, and alternatives to cataract surgery the patient agreed to proceed. Description of Procedure: the patient was brought to the operating room where a time out was performed prior to the start of the procedure. The eye was prepped and draped in the usual sterile fashion for eye surgery. A kleber blade was used to create a paracentesis incision at the inferotemporal limbus. Preservative free lidocaine followed by viscoat was introduced into the anterior chamber. A keratome was used to create a clear corneal biplanar incision at the temporal limbus. A cystotome was used to begin the capsulorhexis which was completed in a continuous curvilinear fashion using the forceps. BSS on a marshall cannula was used to hydrate beneath the lens capsule until the lens was noted to be freely mobile in the capsular bag. Phacoemulsification was used to remove the lens in a divide and conquer technique. Irrigation and aspiration was used to remove the remaining cortical material. The capsular bag was intact. Provisc was used to inflate the capsular bag and a 16.0 Tecnis PCBOO lens was placed into the bag and adjusted using a iván hook/. The remaining viscoelastic was removed. The main incision was closed with a 10-0 nylon suture. The wounds were hydrated and noted to be watertight with a weck cell sponge. Patient was take to the recovery room in a stable condition with instructions to follow up in the clinic the following day. - Complications none
== END 2018-09-13 14:30 | disposition home or self-care (01) ==
LOC: SDC 09:39 → AC 09:42
PROVIDERS: Family Provider Family Medicine; PCP Family Medicine; Referring Provider Ophthalmology; Visit Provider Ophthalmology
PROC: (CPT 66984; principal; 2018-09-13 11:35)
DX: H25.812 Combined forms of age-related cataract, left eye (principal); E11.9 Type 2 diabetes mellitus without complications; J44.9 Chronic obstructive pulmonary disease, unspecified; I10 Essential (primary) hypertension; M06.9 Rheumatoid arthritis, unspecified; E78.00 Pure hypercholesterolemia, unspecified; G47.30 Sleep apnea, unspecified; K21.9 Gastro-esophageal reflux disease without esophagitis; Z86.2 Personal history of diseases of the blood and blood-forming organs and certain disorders involving the immune mechanism; F32.9 Major depressive disorder, single episode, unspecified; F41.9 Anxiety disorder, unspecified; F17.200 Nicotine dependence, unspecified, uncomplicated; Z78.0 Asymptomatic menopausal state; Z79.02 Long term (current) use of antithrombotics/antiplatelets; Z79.52 Long term (current) use of systemic steroids; Z79.899 Other long term (current) drug therapy; I25.2 Old myocardial infarction; Z95.5 Presence of coronary angioplasty implant and graft
CPT/HCPCS: 00142; 66984; 82962; J7120

== ENCOUNTER 2018-11-20 12:27 | Inpatient (IN) | payer MEDICARE, SELFPAY ==
[2018-09-13 10:07] VITALS: BMI 39.5
[2018-11-20] VITALS (15 sets, daily range): BP systolic 122–189; BP diastolic 66–98; PULSE 86–108; RESP 12–25; TEMP 36.9–37.4; O2SAT 85–95; BMI 42.5; BMI 40.3
--- NOTE | 2018-11-20 12:44 | EKG12_ITS ---
Test Reason : SOB Blood Pressure : / mmHG Vent. Rate : 071 BPM Atrial Rate : 071 BPM P-R Int : 132 ms QRS Dur : 084 ms QT Int : 366 ms P-R-T Axes : 022 016 037 degrees QTc Int : 397 ms Normal sinus rhythm with sinus arrhythmia Cannot rule out Inferior infarct , age undetermined Cannot rule out Anterior infarct , age undetermined Abnormal ECG Confirmed by MIGUEL TAFOYA, MOY ([id number]), senior technical editor MARTHA SCOTT ([id number]) on 11/23/2018 1:53:21 PM Referred By: Monica Barragan Confirmed By:PALOMA RIVERA MD
--- NOTE | 2018-11-20 12:44 | RAD_ITS ---
STUDY: X-RAY CHEST REASON FOR EXAM: Female, 53 years old. Cough and confusion. Dyspnea. TECHNIQUE: PA and lateral views of the chest. COMPARISON: Comparison is made with prior study dated July 28, 2018. FINDINGS: EKG electrodes are seen. Vascular congestion and mild CHF. Mild degree of left basilar atelectasis. There is no demonstrated pleural abnormality. There is borderline cardiomegaly. Normal mediastinum and alden. Normal visualized pulmonary arteries. There is atherosclerotic calcification of the aortic arch with tortuosity. There are diffuse degenerative changes of the visualized thoracic spine. Normal visualized ribs, clavicles, and shoulders. There is no demonstrated abnormality of the visualized soft tissue structures of the upper abdomen. RAD/Chest PA and Lateral IMPRESSION: Vascular congestion and mild degree of CHF. Electronically Signed: Manuelito Silva, at 13:59 EDT , Service support ,
[2018-11-20 12:57] LABS: Absolute Lymphocyte Count 0.94 X10^3/uL (0.83-4.51); Absolute Neutrophil Count 12.9 X10^3/uL (2.0-7.7); Basophil# 0.08 X10^3/uL; Basophil% 0.5 % (0-1); Eosinophil# 0.06 X10^3/uL; Eosinophils% 0.4 % (0-5); Hematocrit 41.4 % (37-47); Hemoglobin 13.5 g/dL (12.0-15.0); Lymphocyte # 0.94 X10^3/ul (4.0); Lymphocyte % 6.2 % (19-41); Mean Corp Hgb Conc 32.6 g/dL (32-36); Mean Platelet Vol. 9.5 fl (6.2-12.0); Monocyte# 1.24 X10^3/uL; Monocyte% 8.1 % (0-10); NRBC Flagged by Analyzer 0 % (0-5); Neutrophil # 12.91 X10^3/uL (2.7-7.7); Neutrophil % 84.5 % (47-70); Platelet Count 202 K/mm3 (150-450); RBC Distribution Width CV 15.2 % (11.6-14.6); RBC Distribution Width SD 53.5 fl (35.1-43.9); Red Blood Count 4.36 M/mm3 (4.2-5.4); White Blood Count 15.3 K/mm3 (4.4-11.0)
[2018-11-20] MEDS: Ipratropium/Albuterol Sulfate 3 ML AMPUL.NEB INHALATION ×2 (12:59→18:44)
[2018-11-20 13:07] LABS: Anion Gap 5 (5-15); BUN 6 mg/dL (7-18); BUN/Creat Ratio 7.4 RATIO (10-20); Calcium,Total 9.9 mg/dL (8.5-10.1); Chloride 103 mmol/L (98-107); Creatinine, Serum 0.81 mg/dL (0.55-1.02); EST Glomerular Filtration Rate 79 mL/min (>60); Est Glom Filt Rate - Afr Amer 96 mL/min (>60); Estimated Creatinine Clearance 69.36 ml/min; Glucose 284 mg/dL (74-106); Potassium 4.1 mmol/L (3.5-5.1); Sodium Level 138 mmol/L (136-145)
--- NOTE | 2018-11-20 13:20 | ED.DCSUM_ITS ---
History of Present Illness Chief Complaint: Hyperglycemia Informant: Patient Onset: Yesterday Narrative: Patient presents by EMS from home for elevated glucose confusion reported from yesterday. History of type 2 diabetes on oral medications. Patient occasionally checks her blood glucose, reported from her glucometer it has been in the 100s 3 times in the past. Reported as 400 yesterday 351 by EMS on check at home. Reports she was confused yesterday from a friend. In addition she she just tapered off 20-day course of steroids 3 days ago due to COPD history by her PCP. States has chronic cough and wheeze. Tobacco history. No fevers, chills, sweats. No nausea or vomiting. Increased thirst, however unclear when her last urination was. Denies chest pains or abdominal pain. Prior similar symptoms: No Past Medical History - Allergies and Home Meds Allergies/Adverse Reactions: Allergies amoxicillin Allergy (Verified 11/20/18 12:37) Itching erythromycin base Allergy (Verified 11/20/18 12:37) Unknown methadone Allergy (Verified 11/20/18 12:37) Itching metolazone Allergy (Verified 11/20/18 12:37) Unknown Penicillins Allergy (Verified 11/20/18 12:37) Hives Sulfa (Sulfonamide Antibiotics) Allergy (Verified 11/20/18 12:37) Hives clarithromycin [From Biaxin] Adverse Reaction (Verified 11/20/18 12:37) Nausea ibuprofen Adverse Reaction (Verified 11/20/18 12:37) Other 3 BLEEDING ULCURS morphine Adverse Reaction (Verified 11/20/18 12:37) Other HEADACHE Primary Care Physician: Janel Taylor MD [Primary Care Provider] - Surgical History: appendectomy, cholecystectomy, tonsillectomy, - - Right lower extremity surgery x3 as well as bone grafting, appendectomy, cholecystectomy, gastric bypass, hernia repairs, hip replacement, tonsillectomy. Smoking Status: Heavy Smoker (>10/day) - Family History Sibling Family History: Family History (Last Reviewed 08/13/18 @ 12:58 by Tricia Barajas) Mother Heart disease Cancer Father Hypertension Arthritis Hyperlipemia Grandmother Breast cancer Heart disease Grandfather Heart disease Family History: Reports: Hypertension Maternal Family History: Family History (Last Reviewed 08/13/18 @ 12:58 by Tircia Barajas) Mother Heart disease Cancer Father Hypertension Arthritis Hyperlipemia Grandmother Breast cancer Heart disease Grandfather Heart disease Family History: Reports: Cancer, Heart Disease Paternal Family History: Family History (Last Reviewed 08/13/18 @ 12:58 by Tricia Barajas) Mother Heart disease Cancer Father Hypertension Arthritis Hyperlipemia Grandmother Breast cancer Heart disease Grandfather Heart disease Family History: Reports: Hypertension Review of Systems General: Denies: Chills, Fever, Sweats Eyes: Denies: Visual changes - bilaterally, Diplopia ENT: Denies: Rhinorrhea, Sore throat Cardiovascular: Denies: Chest pain, Palpitations Respiratory: Reports: Cough. Denies: Dyspnea, Dyspnea on exertion Gastrointestinal: Denies: Abdominal pain, Nausea, Vomiting, Diarrhea, Melena, Hematochezia Genitourinary: Denies: Dysuria, Hematuria, Frequency Musculoskeletal: Denies: Back pain, Extremity Pain Skin: Denies: Rash, Wounds Neurological: Denies: Headache, Weakness, Numbness Physical Exam Vital Signs/Narrative: Vital Signs Temp Pulse Resp BP Pulse Ox 11/20/18 13:01 103 H 18 11/20/18 12:44 93 11/20/18 12:30 98.5 F 98 19 H 167/84 H 89 Inital Vital Signs reviewed: Yes General: Well nourished, Well developed, No Acute Distress Head: Normocephalic, Atraumatic Eyes: Perrl, EOMI ENT: No rhinorrhea, Dry mucous membranes Neck: Supple, Nontender Cardiovascular: Regular rate, Regular rhythm, No murmurs Respiratory: No distress, Chest nontender, Decreased Air Movement. Negative for: Wheezing Abdomen: Soft, Nontender, Nondistended, Normal bowel sounds Back: Nontender, Normal Inspection Extremities: Nontender, No edema Skin: Normal color, No rash Neurological: Alert, Oriented x3, Cranial nerves II-XII grossly intact, Normal Strength, Normal Sensation Psychological: Normal affect, Normal Mood Diagnostic/Tx/Re-eval Clinical Impression(s) from Imaging Studies Chest X-Ray 11/20/18 12:44 IMPRESSION: Vascular congestion and mild degree of CHF. Electronically Signed: Manuelito Silva, at 13:59 EDT , Service support , Abnormal Lab Results 11/20/18 11/20/18 11/20/18 12:30 12:30 12:30 WBC 15.3 H RBC 4.36 Hgb 13.5 Hct 41.4 MCV 95.0 MCH 31.0 MCHC 32.6 RDW Std Deviation 53.5 H RDW Coeff of [place]ce[place] 15.2 H Plt Count 202 MPV 9.5 Immature Gran % (Auto) 0.300 Neut % (Auto) 84.5 H Lymph % (Auto) 6.2 L [place] % (Auto) 8.1 Eos % (Auto) 0.4 Baso % (Auto) 0.5 Absolute Neuts (auto) 12.9 H Absolute Lymphs (auto) 0.94 Nucleated RBC % 0 Sodium 138 Potassium 4.1 Chloride 103 Carbon Dioxide 30.0 Anion Gap 5 BUN 6 L Creatinine 0.81 Estim Creat Clear Calc 69.36 Est GFR (MDRD) Af Amer 96 Est GFR (MDRD) Non-Af 79 BUN/Creatinine Ratio 7.4 L Glucose 284 H Calcium 9.9 Urine Color Urine Clarity Urine pH Ur Specific [place] Urine Protein Urine Glucose (UA) Urine Ketones Urine Occult Blood Urine Nitrite Urine Bilirubin Urine Urobilinogen Ur Leukocyte Esterase Urine RBC Urine WBC Ur Squamous Epith Cells Urine Bacteria Urine Mucus Acetone Level NEGATIVE 11/20/18 13:15 WBC RBC Hgb Hct MCV MCH MCHC RDW Std Deviation RDW Coeff of [place] Plt Count MPV Immature Gran % (Auto) Neut % (Auto) Lymph % (Auto) [place] % (Auto) Eos % (Auto) Baso % (Auto) Absolute Neuts (auto) Absolute Lymphs (auto) Nucleated RBC % Sodium Potassium Chloride Carbon Dioxide Anion Gap BUN Creatinine Estim Creat Clear Calc Est GFR (MDRD) Af Amer Est GFR (MDRD) Non-Af BUN/Creatinine Ratio Glucose Calcium Urine Color Yellow Urine Clarity Sl. Cloudy Urine pH 6.0 Ur Specific [place] 1.015 Urine Protein 30 H Urine Glucose (UA) 1000 H Urine Ketones 15 H Urine Occult Blood 10 H Urine Nitrite Negative Urine Bilirubin Negative Urine Urobilinogen 1 H Ur Leukocyte Esterase 25 H Urine RBC 0 SEEN Urine WBC 0-5 SEEN Ur Squamous Epith Cells 0-5 SEEN Urine Bacteria RARE Urine Mucus RARE Acetone Level Patient vital signs stable except pulse ox 89% on room air. Placed on oxygen. With initial concerns of hypoglycemia she is given 500 cc bolus. Glucose 281 in the lab, normal, negative ketones. With reported confusion yesterday, alert and oriented x3 today, work-up including a urine only noting leukocytes in her urine. Culture sent. Chest x-ray no pneumonia however noted vascular congestion. EKG with sinus rate of [address] or T wave changes. She had a normal echo May 2014. She was ambulated to restroom drop to 85% room air appears placed back on oxygen. Given Lasix 40 mg IV for concerns for new onset CHF. In addition, she does report paroxysmal nocturnal dyspnea, chronically sleeps on 2 pillows. With patient on steroids on a taper of 20 days. The reason for her elevated glucose and her white count. I spoke with hospitalist Dr. Barragan who evaluate for admission. - EKG Initial EKG Interpretation: Sinus Rhythm - Sinus rate of 71, no ST or T wave changes. ED Disposition - Plan for ED Patient: Disposition: Acute Care [facility] Diagnosis: CHF (congestive heart failure), Hypoxia Referrals: Janel Taylor MD [Primary Care Provider] -
[2018-11-20 13:31] LABS: Color, Urine Yellow (Yellow); Glucose, Dipstick 1000 mg/dl (Normal); Ketone-Dipstick 15 mg/dl (Negative); Leukocyte Esterase-Dipstick 25 /ul (Negative); Nitrite-Dipstick Negative (Negative); Occult Blood-Urine 10 /ul (Negative); Protein-Dipstick 30 mg/dl (Negative); Red Blood Cells-Urine 0 SEEN /hpf (0-5); Specific Gravity, Urine 1.015 (1.002-1.030); Urine Bilirubin Dipstick Negative (Negative); Urine Clarity Sl. Cloudy (Clear); Urine Urobilinogen 1 mg/dl (Normal)
[2018-11-20 13:36] LABS: Bacteria RARE /hpf (None Seen); Mucous, Urine RARE /hpf (<or=2+); Squamous Epithelial Cells - UA 0-5 SEEN /hpf (5-10); White Blood Cells 0-5 SEEN /hpf (0-5)
--- NOTE | 2018-11-20 14:35 | HP.PCM_ITS ---
Problem List (1) Encephalopathy Status: Acute (2) Hypoxia Status: Acute (3) Hyperglycemia Status: Acute (4) Iron deficiency Status: Chronic (5) Stage 2 moderate COPD by GOLD classification Status: Chronic (6) HTN (hypertension) Status: Chronic Qualifiers: Hypertension type: essential hypertension Qualified Code(s): I10 - Essential (primary) hypertension (7) Peptic ulcer Status: Chronic (8) Chronic neutrophilia Status: Chronic (9) Morbid obesity Status: Chronic (10) Type 2 diabetes mellitus Status: Chronic Qualifiers: Diabetes mellitus nursing home insulin use: without nursing home use Diabetes mellitus complication status: with other specified complication Qualified Code(s): E11.69 - Type 2 diabetes mellitus with other specified complication (11) Schizophrenia Status: Chronic Qualifiers: Schizophrenia type: unspecified Qualified Code(s): F20.9 - Schizophrenia, unspecified (12) Depression Status: Chronic Qualifiers: Depression Type: unspecified Qualified Code(s): F32.9 - Major depressive disorder, single episode, unspecified (13) Gastroesophageal reflux disease Status: Chronic Qualifiers: Esophagitis presence: with esophagitis Qualified Code(s): K21.0 - Gastro- esophageal reflux disease with esophagitis (14) History of PTCA Status: Chronic (15) History of peptic ulcer disease Status: Chronic (16) Benign essential hypertension Status: Chronic (17) CAD (coronary artery disease) Status: Chronic Qualifiers: Coronary Disease-Associated Artery/Lesion type: unspecified vessel or lesion type [place] vs. transplanted heart: unspecified whether [place] or transplanted heart Associated angina: angina presence unspecified Qualified Code(s): I25.10 - Atherosclerotic heart disease of [place] coronary artery without angina pectoris (18) RACHEL (obstructive sleep apnea) Status: Chronic Comment: 17/13 cm of water (19) Tobacco abuse Status: Chronic (20) COPD (chronic obstructive pulmonary disease) with emphysema Status: Chronic Qualifiers: Emphysema type: unspecified Qualified Code(s): J43.9 - Emphysema, unspeci fied History of Present Illness Date of Admission: 11/20/18 Chief Complaint: Confusion, dyspnea The patient is a 53 y/o F w/ PMHx: Chronic COPD w/ Chronic Hypoxic Respiratory Failure (q HS only), HTN, HLD, Fe deficiency anemia, RACHEL on BIPAP q HS, Morbid Obesity, Schizophrenia, GERD with Hx Peptic Ulcer, Chronic neutrophilia, CAD, Tobacco use who presents to the [facility] ED on 11/20/18 with history of recent acute on chronic COPD exacerbation with URI symptoms including congestion, mild cough, sore throat with dyspnea and wheezing which improved with steroid taper and treatment per outpatient physician with primary complaint of hyperglycemia but noted per EMS transient dyspnea complaint as well as hypoxia as well as notable hypoxia to 85% on room air with ambulation in the emergency room. Subjectively patient denies dyspnea complaint despite hypoxia. She denies any recent weight gain, orthopnea. She does state that over the last 2 to 3 days she has had some mild confusion intermittently, primarily following exertion. Work-up in the ED included T 98.5, heart rate 98, BP 167/84, respiratory rate 19 initially 89% on room air-->85% on room air--> 83% on 2 L nasal cannula, CBC with W BC 15.3, hemoglobin 13.5, platelet 202 with left shift, BMP with glucose 284, BNP pending upon requested evaluation, urinalysis with protein 30, glucose 1000, ketones 15, occult blood 10, leukocyte esterase 25, negative nitrite, rare bacteria, no urine WBCs urine culture pending per ED, chest x-ray with vascular congestion with mild degree CHF, EKG with SR without acute evidence of ischemia. In the ED patient administered normal saline which was discontinued then transition to Lasix 40 mg IV x1 as well as DuoNeb therapies. Cardiology consulted, pending. PRN morphine to decrease afterload, continue oxygen supplementation, if necessary will position w/ upright position with legs off bed to decrease preload. Past Medical History Past Medical History (Chronic Problems): Chronic Problems (Last Reviewed 08/13/18 @ 12:58 by Tricia Barajas) Iron deficiency (Chronic) Stage 2 moderate COPD by GOLD classification (Chronic) HTN (hypertension) (Chronic) Peptic ulcer (Chronic) Epigastric pain (Chronic) Chronic neutrophilia (Chronic) Iron deficiency anemia following bariatric surgery (Chronic) Osteoarthritis (Chronic) Morbid obesity (Chronic) Neutrophilic leukocytosis (Chronic) Type 2 diabetes mellitus (Chronic) Schizophrenia (Chronic) Hip osteoarthritis (Chronic) with chronic pain-right hip Iron deficiency anemia due to dietary causes (Chronic) exact cause of iron def anemia unknown-felt likely secondary to past history gastric bypass- although chronic blood loss etiology a possibility (has never had colonoscopy)-further workup including hemoccult stool is recommended Microcytic anemia (Chronic) Morbid obesity with BMI of 45.0-49.9, adult (Chronic) Pulmonary hypertension (Chronic) Chronic narcotic use (Chronic) Depression (Chronic) Gastroesophageal reflux disease (Chronic) Parathyroid abnormality (Chronic) History of PTCA (Chronic) Vitamin D deficiency (Chronic) Hyperlipidemia (Chronic) History of peptic ulcer disease (Chronic) Thyroid nodule (Chronic) deemed to be benign. Benign essential hypertension (Chronic) CAD (coronary artery disease) (Chronic) RACHEL (obstructive sleep apnea) (Chronic) 17/13 cm of water Spinal stenosis of lumbar region at multiple levels (Chronic) Tobacco abuse (Chronic) COPD (chronic obstructive pulmonary disease) with emphysema (Chronic) Medical History: Medical History (Last Reviewed 08/13/18 @ 12:58 by Tricia Barajas) HTN (hypertension) (Chronic) I10 Peptic ulcer (Chronic) K27.9 Bloody stool (Inactive) K92.1 Acute respiratory failure (Acute) J96.00 CAP (community acquired pneumonia) (Acute) J18.9 Epigastric pain (Chronic) R10.13 Chronic neutrophilia (Chronic) D72.828 Iron deficiency anemia following bariatric surgery (Chronic) D50.9 Osteoarthritis (Chronic) M19.90 Chest pain (Inactive) R07.9 Morbid obesity (Chronic) E66.01 Neutrophilic leukocytosis (Chronic) D72.9 Viral gastroenteritis (Inactive) A08.4 Type 2 diabetes mellitus (Chronic) E11.9 Schizophrenia (Chronic) F20.9 Hip osteoarthritis (Chronic) M16.9 with chronic pain-right hip Iron deficiency anemia due to dietary causes (Chronic) D50.8 exact cause of iron def anemia unknown-felt likely secondary to past history gastric bypass- although chronic blood loss etiology a possibility (has never had colonoscopy)-further workup including hemoccult stool is recommended Microcytic anemia (Chronic) D50.9 Morbid obesity with BMI of 45.0-49.9, adult (Chronic) E66.01, Z68.42 Pulmonary hypertension (Chronic) I27.2 Chronic narcotic use (Chronic) F11.90 Depression (Chronic) F32.9 Gastroesophageal reflux disease (Chronic) K21.9 Parathyroid abnormality (Chronic) E21.5 Vitamin D deficiency (Chronic) E55.9 Hyperlipidemia (Chronic) E78.5 History of peptic ulcer disease (Chronic) Z87.11 Thyroid nodule (Chronic) E04.1 deemed to be benign. Benign essential hypertension (Chronic) I10 CAD (coronary artery disease) (Chronic) I25.10 RACHEL (obstructive sleep apnea) (Chronic) G47.33 17/13 cm of water Spinal stenosis of lumbar region at multiple levels (Chronic) M48.06 Tobacco abuse (Chronic) Z72.0 COPD (chronic obstructive pulmonary disease) with emphysema (Chronic) J43.9 Allergies amoxicillin Allergy (Verified 11/20/18 12:37) Itching erythromycin base Allergy (Verified 11/20/18 12:37) Unknown methadone Allergy (Verified 11/20/18 12:37) Itching metolazone Allergy (Verified 11/20/18 12:37) Unknown Penicillins Allergy (Verified 11/20/18 12:37) Hives Sulfa (Sulfonamide Antibiotics) Allergy (Verified 11/20/18 12:37) Hives clarithromycin [From Biaxin] Adverse Reaction (Verified 11/20/18 12:37) Nausea ibuprofen Adverse Reaction (Verified 11/20/18 12:37) Other 3 BLEEDING ULCURS morphine Adverse Reaction (Verified 11/20/18 12:37) Other HEADACHE Home Medications: Ambulatory Orders Medication Instructions Recorded Atorvastatin Calcium [Lipitor] 80 mg PO QHS 08/22/15 Clopidogrel Bisulfate [Plavix] 75 mg PO DAILY 08/22/15 Metoprolol(XL)Succ [Toprol Xl 50 mg PO DAILY 08/22/15 (Beta Trino)] Nitroglycerin 0.4 mg SL PRN PRN 11/08/16 Duloxetine Hcl [Cymbalta] 120 mg PO DAILY 01/16/17 amlodipine 10 mg tablet 10 mg PO BID tab 05/02/17 potassium chloride ER 10 mEq 10 meq PO DAILY #60 tab 06/16/17 tablet,extended release(part/cryst) Omeprazole 40 mg PO DAILY 03/08/18 Pregabalin [Lyrica] 75 mg PO TID 03/08/18 Risperidone 4 mg PO QHS 03/08/18 Tizanidine HCl 6 mg PO TID PRN PRN 03/08/18 traZODone [Desyrel] 200 mg PO QHS 03/08/18 Buspirone HCl 30 mg PO BID 04/13/18 varenicline 1 mg tablet 1 mg PO BID 84 Days #168 tab 07/26/18 fluticasone propionate-salmeterol 2 puff INHALATION BID #12 g 08/09/18 230 mcg-21 mcg/actuation HFA inhaler Sucralfate [Carafate] 1 gm PO 4X/DAY 08/16/18 Albuterol Aerosols [Ventolin 2.5 mg INHALATION Q4H PRN 08/19/18 Aerosols] Ketorolac Tromethamine [Acular LS] 1 drp 4X/DAY 09/03/18 prednisoLONE eye drops (1 mL) 1 drp RIGHT EYE BID 09/03/18 [Pred Forte eye drops (1 mL)] prednisone 10 mg tablet 10 mg PO QDAY #30 tab 09/21/18 roflumilast 500 mcg tablet 500 mcg PO DAILY #30 tab 09/21/18 albuterol sulfate HFA 90 2 puff INHALATION Q4H PRN PRN #18 g 10/31/18 mcg/actuation aerosol inhaler montelukast 10 mg tablet 10 mg PO QHS #30 tab 10/31/18 tiotropium bromide 2.5 2 puff INHALATION DAILY #1 device 10/31/18 mcg/actuation mist for inhalation Acetaminophen [Tylenol Extra 500 mg PO Q6H PRN PRN 11/20/18 Strength] Furosemide [Lasix] 20 mg PO DAILY 11/20/18 Lisinopril 20 mg PO QHS 11/20/18 Mirabegron [Myrbetriq] 25 mg PO DAILY 11/20/18 Soy Isofla/Blk Coh[place]/Mag Bark 155 mg PO DAILY 11/20/18 [Estroven 155 mg Capsule] Surgical History: Surgical History (Last Reviewed 08/13/18 @ 12:58 by Tricia Barajas) History of PTCA (Chronic) Z98.61 History of appendectomy Z98.890, Z90.49 History of carpal tunnel surgery of left wrist Z98.890 History of cholecystectomy Z98.890, Z90.49 History of gastric bypass Z98.84 History of tonsillectomy Z98.890, Z90.89 history of carpal tunnel release left wrist 2018 history of right hip surgery Surgical History: appendectomy, cholecystectomy, tonsillectomy, - - Right lower extremity surgery x3 as well as bone grafting, appendectomy, cholecystectomy, gastric bypass, hernia repairs, hip replacement, tonsillectomy. 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 Tobacco Use: Cigarettes Alcohol: None Drugs: None - *Family History Sibling Family History: Family History (Last Reviewed 08/13/18 @ 12:58 by Tricia Barajas) Mother Heart disease Cancer Father Hypertension Arthritis Hyperlipemia Grandmother Breast cancer Heart disease Grandfather Heart disease History Items: Hypertension Maternal Family History: Family History (Last Reviewed 08/13/18 @ 12:58 by Tricia Barajas) Mother Heart disease Cancer Father Hypertension Arthritis Hyperlipemia Grandmother Breast cancer Heart disease Grandfather Heart disease History Items: Cancer, Heart Disease Paternal Family History: Family History (Last Reviewed 08/13/18 @ 12:58 by Tricia Barajas) Mother Heart disease Cancer Father Hypertension Arthritis Hyperlipemia Grandmother Breast cancer Heart disease Grandfather Heart disease History Items: High Cholesterol, Heart Disease, Hypertension Review of Systems Constitutional: Reports: Malaise, Weakness, Fatigue. Denies: Chills, Fever, Weight Change HEENT: Reports: Nasal Congestion, Sinus Congestion, Sore Throat. Denies: Head Aches, Sinus Drainage Cardiovascular: Denies: Chest Pain, Palpitations Respiratory: Reports: Cough, - - Although patient denies dyspnea she is hypoxic, worse with activity.. Denies: Shortness of breath at rest, Shortness of breath upon exertion, Sputum production Gastrointestinal: Denies: Abdominal Pain, Nausea, Vomiting Genitourinary: Denies: Dysuria Musculoskeletal: Denies: Joint Pain, Joint Tenderness Skin: Denies: Rash, Wounds Neurological: Denies: Numbness, Tingling, Focal weakness Psychiatric: Denies: Anxiety, Depression, Homicidal Ideations, Suicidal Ideations Hematologic/ Lymphatic: Denies: Easy Bruising, Easy Bleeding VTE Information - Inpt Only VTE Present on Admission: No VTE Mechan Device Prophylaxis: SCD's VTE Pharm Prophylaxis ordered?: Yes Patient Problems: Active and Suspected Problems (Last Reviewed 08/13/18 @ 12:58 by Tricia Barajas) Encephalopathy (Acute) Hypoxia (Acute) Hyperglycemia (Acute) Subjective: Seated upright in the ED bed, fatigued appearance, mild voice disturbance secondary to recent URI. Objective: Physical Examination: General: awake, alert, oriented x 3 and cooperative, seated upright in the ED bed, no acute distress. Skin: normal color, turgor, no icterus, cyanosis. HEENT: AT/NC, EOMI, PERRLA, mildly dry MM, no marketed oropharynx erythema or exudate, no carotid bruits or JVD noted; or, thickened neck makes examination difficult. Lungs: Diminished breath sounds throughout, moderate effort, no obvious rales, rhonchi or wheezing. Abdomen: soft, morbidly obese, NTTP, ND, normal BS, no HSM. Extremities: no cyanosis, clubbing, or edema. Neurological: patient awake, alert, oriented x 3; cognitive function intact; pupils equally reactive to light and accomodation; cranial nerves II-XII grossly normal, moving all 4 extremities, no focal deficits, strength moderately to severely global decrease secondary to acute presentation. Psychiatric: affect appears fatigued, no acute evidence of depressive or anxiety feelings. - Physical Exam Vital Signs Temp Pulse Resp BP Pulse Ox 98.5 F 103 H 18 167/84 H 85 11/20/18 12:30 11/20/18 13:01 11/20/18 13:01 11/20/18 12:30 11/20/18 13:15 Oxygen Flow Rate (L/min) 2 Oxygen Delivery Method Room Air Weight: 247 lb 12.793 oz Body Mass Index (BMI) 42.5 Laboratory Tests Past 24 Hrs 11/20/18 11/20/18 11/20/18 12:30 12:30 12:30 WBC 15.3 H RBC 4.36 Hgb 13.5 Hct 41.4 MCV 95.0 MCH 31.0 MCHC 32.6 RDW Std Deviation 53.5 H RDW Coeff of Kaycee 15.2 H Plt Count 202 MPV 9.5 Immature Gran % (Auto) 0.300 Neut % (Auto) 84.5 H Lymph % (Auto) 6.2 L [place] % (Auto) 8.1 Eos % (Auto) 0.4 Baso % (Auto) 0.5 Absolute Neuts (auto) 12.9 H Absolute Lymphs (auto) 0.94 Nucleated RBC % 0 Sodium 138 Potassium 4.1 Chloride 103 Carbon Dioxide 30.0 Anion Gap 5 BUN 6 L Creatinine 0.81 Estim Creat Clear Calc 69.36 Est GFR (MDRD) Af Amer 96 Est GFR (MDRD) Non-Af 79 BUN/Creatinine Ratio 7.4 L Glucose 284 H Calcium 9.9 B-Natriuretic Peptide Urine Color Urine Clarity Urine pH Ur Specific [place] Urine Protein Urine Glucose (UA) Urine Ketones Urine Occult Blood Urine Nitrite Urine Bilirubin Urine Urobilinogen Ur Leukocyte Esterase Urine RBC Urine WBC Ur Squamous Epith Cells Urine Bacteria Urine Mucus Acetone Level NEGATIVE 11/20/18 11/20/18 12:30 13:15 WBC RBC Hgb Hct MCV MCH MCHC RDW Std Deviation RDW Coeff of Kaycee Plt Count MPV Immature Gran % (Auto) Neut % (Auto) Lymph % (Auto) [place] % (Auto) Eos % (Auto) Baso % (Auto) Absolute Neuts (auto) Absolute Lymphs (auto) Nucleated RBC % Sodium Potassium Chloride Carbon Dioxide Anion Gap BUN Creatinine Estim Creat Clear Calc Est GFR (MDRD) Af Amer Est GFR (MDRD) Non-Af BUN/Creatinine Ratio Glucose Calcium B-Natriuretic Peptide Pending Urine Color Yellow Urine Clarity Sl. Cloudy Urine pH 6.0 Ur Specific [place] 1.015 Urine Protein 30 H Urine Glucose (UA) 1000 H Urine Ketones 15 H Urine Occult Blood 10 H Urine Nitrite Negative Urine Bilirubin Negative Urine Urobilinogen 1 H Ur Leukocyte Esterase 25 H Urine RBC 0 SEEN Urine WBC 0-5 SEEN Ur Squamous Epith Cells 0-5 SEEN Urine Bacteria RARE Urine Mucus RARE Acetone Level Assessment/Plan All Active Problems (Last Reviewed 08/13/18 @ 12:58 by Tricia Barajas) Acute and chronic respiratory failure with hypoxia (Acute) COPD exacerbation (Acute) Pneumonia (Resolved) Sepsis (Resolved) Cataract (Acute) Encephalopathy (Acute) Hypoxia (Acute) Hyperglycemia (Acute) Acute respiratory failure (Acute) CAP (community acquired pneumonia) (Acute) Diarrhea (Resolved) Hypokalemia (Resolved) The patient is a 53 y/o F w/ PMHx: Chronic COPD w/ Chronic Hypoxic Respiratory Failure (q HS only), HTN, HLD, Fe deficiency anemia, RACHEL on BIPAP q HS, Morbid Obesity, Schizophrenia, GERD with Hx Peptic Ulcer, Chronic neutrophilia, CAD, Tobacco use who presents to the [facility] ED on 11/20/18 with history of recent acute on chronic COPD exacerbation with URI symptoms including congestion, mild cough, sore throat with dyspnea and wheezing which improved with steroid taper and treatment per outpatient physician with primary complaint of hyperglycemia but noted per EMS transient dyspnea complaint as well as hypoxia as well as notable hypoxia to 85% on room air with ambulation in the emergency room. (1) Acute Encephalopathy (metabolic) secondary to Dyspnea with Hypoxia, Unclear Specific Etiology, Possible secondary to Recent Suspected Viral Bronchitis w/ Acute on Chronic COPD exacerbation (recent steroid treatment) versus PE, CHF RULED OUT: Work-up in the ED included T 98.5, heart rate 98, BP 167/84, respiratory rate 19 initially 89% on room air-->85% on room air--> 83% on 2 L nasal cannula, CBC with W BC 15.3, hemoglobin 13.5, platelet 202 with left shift, BMP with glucose 284, BNP pending upon requested evaluation, urinalysis with protein 30, glucose 1000, ketones 15, occult blood 10, leukocyte esterase 25, negative nitrite, rare bacteria, no urine WBCs urine culture pending per ED, chest x-ray with vascular congestion with mild degree CHF however BNP resulted 75, EKG with SR without acute evidence of ischemia. Will admit to PCU to be cautious given unclear etiology pending CTPA upon transition per discussion with ED physician, maintain on cardiac telemetry, maintain on oxygen with wean as tolerated to room air, continue ATC duonebs, PRN albuterol, HOB, IS parameters w/ pending sputum cultures, respiratory viral panel and urine antigens. Bld cx x 2 obtained in the ED. Most recent ECHO noted 05/2014 w/ normal LV size, wall motion, and systolic function, EF 65 %, LA mildly enlarged, trivial MVI, trivial TVI, RVSP 34 mmHg thus will request repeat. (2) Hyperglycemia w/ Diabetes mellitus type II: Likely secondary to recent steroid high dose and prolonged taper, continue to trend BS, from current list on a regimen, hemoglobin A1c requested, maintain on ADA diet, accu checks w/ ISS, nutrition consulted for education and teaching. (3) Chronic COPD w/ Recent Acute Exacerbation, Completed Prolonged Steroid Taper: Will maintain on oxygen with wean as tolerated to room air, continue ATC duonebs, Singulair, roflumilast, PRN albuterol, HOB, IS parameters. #1 as noted above, unclear if partially secondary to ongoing COPD exacerbation, CTPA pending as noted. (4) CAD: Status post PCI, continue patient home regimen aspirin, plavix, statin, metoprolol, lisinopril regimen. (5) Chronic neutrophilia: Admission WBC 15.3, baseline varies from 13-19 from review of records, recently on steroids also, trend. (6) GERD with history Peptic Ulcer: Maintain on home omeprazole as well as sucralfate regimen. (7) Anxiety and depression/schizophrenia, unclear type: We will continue home regimen Cymbalta, BuSpar, risperidone, trazodone. (8) Hypertension: Continue home regimen including IV Lasix as noted, amlodipine, lisinopril, metoprolol, PRN hydralazine. (9) Hyperlipidemia: Continue home statin regimen. AM FLP. (10) Morbid Obesity: Weight loss and lifestyle changes encouraged, nutrition consulted. (11) Tobacco Abuse: Encouraged cessation, inpatient consultation per RT, continue Chantix regimen. (12) RACHEL: BIPAP q HS. (13) DVT Prophylaxis: SCDs, lovenox. (14) Full Code status. Code Visit Inpatient E&M: 03615 Init Hosp L3
[2018-11-20] MEDS: Furosemide 40 MG/4 ML Vial IV (14:37)
--- NOTE | 2018-11-20 14:51 | NURSING ---
PCU CHF, HYPOXIA WHITE
[2018-11-20 14:53] LABS: BNP,B-Type NATRIURETIC PEPTIDE 75.6 pg/mL (0-100)
--- NOTE | 2018-11-20 15:04 | CT_ITS ---
STUDY: CTA CHEST REASON FOR EXAM: Female, 53 years old. Cough. Hypoxia. Emphysema. RADIATION DOSAGE (If Supplied By Facility): CTDIvol = ( 15.04 ) mGy, DLP = ( 450.31 ) mGycm TECHNIQUE: The examination was performed with the intravenous administration of 100 IV Isovue 370. Post-processing of the angiographic images was performed, with multiplanar reformation and 3D reconstruction. Individualized dose optimization techniques were used for this CT. COMPARISON: Comparison is made with prior study dated May 24, 2018. FINDINGS: There are multiple nonocclusive intraluminal filling defects in branches of the upper and lower lobe pulmonary arteries bilaterally suggestive of bilateral pulmonary emboli. Normal thoracic aorta and visualized great vessels. There is no demonstrated aortic dissection. There are calcifications of the coronary arteries. Normal mediastinum. Normal hilar regions. Normal visualized trachea and bronchi. The lungs are well expanded. Increased markings at the lung bases suggestive of a atelectasis and/or scarring. Normal pleura. Normal chest wall structures. There are degenerative changes of thoracic spine. Normal visualized upper abdomen. CT/CTA Chest W/WO Contrast IMPRESSION: Bilateral pulmonary emboli. Increased markings at the lung bases suggestive of atelectasis and/or scarring. Electronically Signed: Manuelito Silva, at 15:42 EDT , Service support ,
--- NOTE | 2018-11-20 15:22 | ECHOCS_ITS ---
Reason For Study: CHF Procedure This was a 2D Doppler, Color Flow transthoracic echocardiogram. Contrast injection was performed. The study was technically difficult. Exam performed portable in patient room. Left Ventricle Normal size and thickness. The estimated ejection fraction is 55 %. Stage 1 diastolic dysfunction. No regional wall motion abnormalities noted. Right Ventricle Normal size and thickness. Normal systolic function. Atria Normal left atrium. Normal right atrium. Normal atrial septum. Mitral Valve The mitral valve is structurally normal. No prolapse or stenosis seen. Tricuspid Valve Normal tricuspid valve. Unable to estimate RV systolic pressure due to insufficient tricuspid regurgitant envelope. Aortic Valve Trisinus/trileaflet aortic valve. Mild diffuse aortic valve thickening. Trivial aortic valve insufficiency. Pulmonic Valve The pulmonic valve is not well visualized. Great Vessels Normal aortic root. Normal arch. Normal inferior vena cava. Inferior vena cava collapse with sniff. Pericardium/Pleural No pericardial effusion. Medication Diluted definity 3ml given slow IV push to enhance endocardial definition. MMode/2D Measurements & Calculations LVIDd: 4.7 cm IVSd: 1.2 cm Ao root diam: 3.0 cm LVIDs: 3.4 cm LVPWd: 1.2 cm RVDd: 3.3 cm FS: 27.2 % LAV(MOD-bp): 44.3 ml LVAd ap4: 20.4 cm2 SV(MOD-sp4): 27.0 ml LAV(MOD-bp) Indexed: 20.7 ml/m2 EDV(MOD-sp4): 45.9 ml LAV(MOD-sp2): 37.2 ml EDV(sp4-el): 47.5 ml LAV(MOD-sp4): 46.2 ml LVAs ap4: 12.0 cm2 ESV(MOD-sp4): 19.0 ml ESV(sp4-el): 18.6 ml EF(MOD-sp4): 58.7 % EF(sp4-el): 60.8 % SV(sp4-el): 28.9 ml LA A4 area: 18.2 cm2 LA dimension(2D): 4.0 cm Doppler Measurements & Calculations MV E max natan: 70.2 cm/sec Lat Peak E' Natan: 8.8 cm/sec Med Peak E' Natan: 6.1 cm/sec MV A max natan: 101.2 cm/sec E/E' lat: 7.9 E/E' med: 11.6 MV E/A: 0.69 Ao V2 max: 199.6 cm/sec LV V1 max: 140.7 cm/sec PA V2 max: 111.7 cm/sec Ao max P.9 mmHg LV V1 max P.9 mmHg Ao V2 mean: 133.8 cm/sec Ao mean P.0 mmHg Ao V2 VTI: 41.4 cm Interpretation Summary The estimated ejection fraction is 55 %. Stage 1 diastolic dysfunction. Unable to estimate RV systolic pressure due to insufficient tricuspid regurgitant envelope. Trivial aortic valve insufficiency. The study was technically difficult. Contrast injection was performed. Ordering Physician: Monica Barragan Referring Physician: Miedel, Janel Performed By: Kat De La Torre, CAITLYN, RVT
[2018-11-20 15:38] LABS: Magnesium 1.8 mg/dL (1.6-2.6)
[2018-11-20 16:16] LABS: Bedside Glucose 299 mg/dL (70-110)
[2018-11-20] MEDS: Insulin Lispro 100 UNIT/ML INSULN.PEN SC ×2 (16:21→22:05)
[2018-11-20] MEDS: hydrALAZINE 20 MG/ML Vial 10 MG IV (16:21)
[2018-11-20] MEDS: Acetaminophen 325 MG Tablet 650 MG PO ×2 (16:22→22:29)
[2018-11-20 16:41] LABS: Hemoglobin A1c 8.8 % (4.2-6.3)
--- NOTE | 2018-11-20 16:58 | PCM.PN.BLA ---
Progress Note CTA demonstrated bilateral pulmonary emboli. Lovenox increased to therapeutic dosing with 100 mg subcu x1 now. Anticipate transition to novel anticoagulant tomorrow pending further work-up.
[2018-11-20] MEDS: Pantoprazole Sodium 40 MG Tablet PO (17:21)
[2018-11-20] MEDS: Clopidogrel Bisulfate 75 MG Tablet PO (17:21)
[2018-11-20] MEDS: DULoxetine Hcl 60 MG Capsule 120 MG PO (17:21)
[2018-11-20] MEDS: Metoprolol(XL)Succ 50 MG Tablet PO (17:21)
[2018-11-20] MEDS: Enoxaparin 100 MG/ML Syringe SC (17:21)
[2018-11-20] MEDS: Tolterodine Tartrate 4 MG CAP.SA PO (17:22)
[2018-11-20] MEDS: amLODIPine 10 MG Tablet PO (17:22)
[2018-11-20] MEDS: Sucralfate 1 GM Tablet PO ×2 (17:22→22:04)
[2018-11-20] MEDS: busPIRone 15 MG TABLET 30 MG PO (22:04)
[2018-11-20] MEDS: traZODone 100 MG Tablet 200 MG PO (22:04)
[2018-11-20] MEDS: Lisinopril 20 MG Tablet PO (22:06)
[2018-11-20] MEDS: RisperiDONE 2 MG Tablet 4 MG PO (22:06)
[2018-11-20] MEDS: Montelukast 10 MG Tablet PO (22:06)
[2018-11-20] MEDS: Atorvastatin Calcium 80 MG Tablet PO (22:06)
[2018-11-20 22:15] LABS: Bedside Glucose 208 mg/dL (70-110)
[2018-11-20] MEDS: Pregabalin 75 MG Capsule PO (22:29)
[2018-11-21] VITALS (25 sets, daily range): BP systolic 93–108; BP diastolic 50–66; PULSE 61–94; RESP 12–21; TEMP 36.6–36.9; O2SAT 91–96
[2018-11-21] MEDS: tiZANidine HCl 2 MG Tablet 6 MG PO (00:58)
--- NOTE | 2018-11-21 04:43 | NURSING ---
Pt c/o difficulty breathing. Oxygen saturation WNL on 2L NC. Pt lungs with wheezes. Respiratory called for a breathing treatment.
[2018-11-21] MEDS: Albuterol 2.5 MG/3 ML VIAL.NEB. INHALATION (04:45)
[2018-11-21 04:46] LABS: Bedside Glucose 244 mg/dL (70-110)
--- NOTE | 2018-11-21 05:55 | EKG12_ITS ---
Test Reason : AM Blood Pressure : / mmHG Vent. Rate : 069 BPM Atrial Rate : 069 BPM P-R Int : 140 ms QRS Dur : 088 ms QT Int : 420 ms P-R-T Axes : 025 016 023 degrees QTc Int : 450 ms Normal sinus rhythm Low voltage QRS Cannot rule out Anterior infarct , age undetermined Abnormal ECG When compared with ECG of 20-NOV-2018 12:59, MANUAL COMPARISON REQUIRED, DATA IS UNCONFIRMED Confirmed by MARYAM TAFOYA, JAZZMINE ([id number]), photograph editor GINNY SIMONS ([id number]) on 11/23/2018 2:24:26 PM Referred By: Monica Barragan Confirmed By:JAZZMINE FRANCISCO MD
[2018-11-21 06:36] LABS: Absolute Lymphocyte Count 1.33 X10^3/uL (0.83-4.51); Absolute Neutrophil Count 5.8 X10^3/uL (2.0-7.7); Basophil# 0.06 X10^3/uL; Basophil% 0.7 % (0-1); Eosinophil# 0.18 X10^3/uL; Eosinophils% 2.2 % (0-5); Hematocrit 38.2 % (37-47); Lymphocyte # 1.33 X10^3/ul (4.0); Mean Corp Hgb Conc 31.4 g/dL (32-36); Mean Corpuscular Hgb 30.3 pg (27.0-32.0); Mean Corpuscular Volume 96.5 fL (81-99); Mean Platelet Vol. 9.7 fl (6.2-12.0); Monocyte% 10.8 % (0-10); NRBC Flagged by Analyzer 0 % (0-5); Neutrophil % 69.9 % (47-70); Platelet Count 183 K/mm3 (150-450); RBC Distribution Width CV 15.3 % (11.6-14.6); RBC Distribution Width SD 54.4 fl (35.1-43.9); Red Blood Count 3.96 M/mm3 (4.2-5.4); White Blood Count 8.3 K/mm3 (4.4-11.0)
[2018-11-21] MEDS: Ipratropium/Albuterol Sulfate 3 ML AMPUL.NEB INHALATION ×4 (06:46→19:08)
[2018-11-21] MEDS: Enoxaparin 100 MG/ML Syringe SC ×2 (07:00→17:27)
[2018-11-21 07:01] LABS: Anion Gap 5 (5-15); BUN 6 mg/dL (7-18); Calcium,Total 9.3 mg/dL (8.5-10.1); Chloride 101 mmol/L (98-107); Cholesterol 151 mg/dL (200); Creatinine, Serum 0.86 mg/dL (0.55-1.02); EST Glomerular Filtration Rate 73 mL/min (>60); Est Glom Filt Rate - Afr Amer 89 mL/min (>60); Estimated Creatinine Clearance 65.33 ml/min; Glucose 220 mg/dL (74-106); High Density Lipoprotein 29 mg/dL; Potassium 3.7 mmol/L (3.5-5.1); Sodium Level 138 mmol/L (136-145); Thyroid Stim Hormone (TSH) 0.99 uIU/mL (0.358-3.74); Triglycerides 273 mg/dL; Very Low Density Lipoprotein 55 mg/dL (5-40)
[2018-11-21] MEDS: Pregabalin 75 MG Capsule PO ×3 (07:01→21:54)
[2018-11-21] MEDS: Sucralfate 1 GM Tablet PO ×4 (07:01→21:54)
[2018-11-21] MEDS: Insulin Lispro 100 UNIT/ML INSULN.PEN SC ×4 (07:01→21:55)
[2018-11-21] MEDS: busPIRone 15 MG TABLET 30 MG PO ×2 (09:33→21:54)
[2018-11-21] MEDS: DULoxetine Hcl 60 MG Capsule 120 MG PO (09:33)
[2018-11-21] MEDS: Metoprolol(XL)Succ 50 MG Tablet PO (09:39)
[2018-11-21] MEDS: amLODIPine 10 MG Tablet PO (09:40)
[2018-11-21] MEDS: Clopidogrel Bisulfate 75 MG Tablet PO (09:40)
[2018-11-21] MEDS: Pantoprazole Sodium 40 MG Tablet PO (09:40)
[2018-11-21] MEDS: Tolterodine Tartrate 4 MG CAP.SA PO (09:41)
--- NOTE | 2018-11-21 10:06 | CASEMGMT ---
LW/POA forms scanned into summary tab of Jessica ceja is listed as POA. SUSSY East
--- NOTE | 2018-11-21 11:31 | CASEMGMT ---
PAMELA ALVAREZ assessment: Face to Face with patient for initial transition planning/care coordination assessment. PAMELA ALVAREZ introduced self and role at [facility], pt voices understanding and consents to assessment at this time. Pt is lying in bed in no distress at this time. Pt is A/Ox4 at this time and answers all questions appropriately at this time. Care providers, pharmacy, and demographics verified/updated at this time. PCP: Claudia Specialists: Case, min; Prah, hematology Preferred Pharmacy: [facility], if [facility] closed Insurance: [facility] Prescription Benefit: Anth[employer] Living Will/HPOA: Pt has LW/HPOA and they are currently on file at [facility] at this time. Pt states HPOA is her daughter, Jessica Payan. LNOK: Jessica Payan, daughter/HPOA; Balbina Tejada, daughter Living Arrangements: Pt states lives alone in 1 story apt and states no concerns at home at this time. Pt states is independent with ADL's. Transportation: Pt states drives self and states no transportation concerns at this time. DME/HHC: Pt states has the following DME: cane, walker, raised toilet seat, shower chair, bipap(doesn't use), and home oxygen 3liters prn and at bedtime thru [employer]. Pt states has had HHC in the past and has been to [facility]. Pt states no concerns with going home at time of discharge. Pt states is disabled. Pt states smokes 2 packs/day and drinks ETOH occasionally. Pt states no further concerns/needs at this time. CM to follow for possible increased home oxygen need and for any further discharge planning/needs. Advised pt to ask for CM if any further questions/concerns/needs arise, voices understanding. Pt Goal: Home Plan: [place] PAMELA ALVAREZ
[2018-11-21 11:51] LABS: Bedside Glucose 228 mg/dL (70-110)
[2018-11-21 12:06] LABS: Bedside Glucose 227 mg/dL (70-110)
--- NOTE | 2018-11-21 15:20 | PN_ITS ---
<Meseret Delgado - Last Filed: 11/21/18 15:37> Patient Problems: Active and Suspected Problems (Last Reviewed 08/13/18 @ 12:58 by Tricia Barajas) Encephalopathy (Acute) Hypoxia (Acute) Hyperglycemia (Acute) Subjective: Patient seen and examined. Reports dyspnea with minimal exertion. Wheezing on exam. Denies chest pain. Denies dizziness, lightheadedness. - Physical Exam General: Alert, Oriented x3, Cooperative HEENT: Atraumatic, PERRLA, EOMI, Normocephalic Neck: Supple, No JVD, Negative Carotid Bruits Lungs: Diminished, Wheezes Cardiovascular: Regular rate, Regular Rhythm, Normal S1, Normal S2, No murmurs Abdomen: Bowel Sounds Present, Soft, Non Tender, Non-Distended, Obese Extremities: No clubbing, No cyanosis, No edema, Capillary Refill Less than 3 Seconds Skin: No rashes, No breakdown Musculoskeletal: No Tenderness to Palpation of Joints or Extremities Neurological: Cranial nerves II-XII grossly intact, Neuro grossly intact Psych/Mental Status: Normal Affect, Appropriate Vital Signs Temp Pulse Resp BP Pulse Ox 98 F 80 14 97/50 L 91 11/21/18 13:46 11/21/18 13:46 11/21/18 13:46 11/21/18 13:46 11/21/18 14:05 Oxygen Flow Rate (L/min) [ 3 AMBULATION with Oxygen] Oxygen Flow Rate (L/min) 2 Oxygen Delivery Method Nasal Cannula Weight: 248 lb 3.848 oz Body Mass Index (BMI) 40.3 Intake and Output for Last 24 Hours 11/19/18 11/20/18 11/21/18 23:59 23:59 23:59 Intake Total 1933 507 / 507 Output Total 0 / 0 Balance 1933 507 / 507 Microbiology Past 72 Hours 11/20/18 13:15 Urine Culture - Preliminary Urine Catheter - Snider Mixed Gram Positive Organisms 11/20/18 15:45 Respiratory Panel (PCR) - Final Mucosa - Nasopharyngeal 11/20/18 13:15 Legionella Antigen - Final Urine Catheter - Snider 11/20/18 13:15 Streptococcus pneumoniae Antigen (M - Final Urine Catheter - Snider Laboratory Tests Past 24 Hrs 11/20/18 11/20/18 11/21/18 12:30 15:57 06:05 WBC 8.3 RBC 3.96 L Hgb 12.0 Hct 38.2 MCV 96.5 MCH 30.3 MCHC 31.4 L RDW Std Deviation 54.4 H RDW Coeff of Kaycee 15.3 H Plt Count 183 MPV 9.7 Immature Gran % (Auto) 0.400 Neut % (Auto) 69.9 Lymph % (Auto) 16.0 L Turner % (Auto) 10.8 H Eos % (Auto) 2.2 Baso % (Auto) 0.7 Absolute Neuts (auto) 5.8 Absolute Lymphs (auto) 1.33 Nucleated RBC % 0 Sodium Potassium Chloride Carbon Dioxide Anion Gap BUN Creatinine Estim Creat Clear Calc Est GFR (MDRD) Af Amer Est GFR (MDRD) Non-Af BUN/Creatinine Ratio Glucose Hemoglobin A1c 8.8 H Calcium Magnesium 1.8 Triglycerides Cholesterol LDL Cholesterol VLDL Cholesterol HDL Cholesterol TSH 11/21/18 06:05 WBC RBC Hgb Hct MCV MCH MCHC RDW Std Deviation RDW Coeff of Kaycee Plt Count MPV Immature Gran % (Auto) Neut % (Auto) Lymph % (Auto) Turner % (Auto) Eos % (Auto) Baso % (Auto) Absolute Neuts (auto) Absolute Lymphs (auto) Nucleated RBC % Sodium 138 Potassium 3.7 Chloride 101 Carbon Dioxide 32.0 Anion Gap 5 BUN 6 L Creatinine 0.86 Estim Creat Clear Calc 65.33 Est GFR (MDRD) Af Amer 89 Est GFR (MDRD) Non-Af 73 BUN/Creatinine Ratio 7.0 L Glucose 220 H Hemoglobin A1c Calcium 9.3 Magnesium Triglycerides 273 H Cholesterol 151 LDL Cholesterol 67 VLDL Cholesterol 55 H HDL Cholesterol 29 L TSH 0.99 POC Glucose 11/21/18 11/21/18 11/21/18 11:53 06:54 04:28 POC Glucose 227 H 228 H 244 H 11/20/18 11/20/18 21:58 15:58 POC Glucose 208 H 299 H Medical Necessity - Tobacco Use Smoking Status: Heavy Smoker (>10/day) Tobacco Use: Cigarettes Assessment/Plan All Active Problems (Last Reviewed 08/13/18 @ 12:58 by Tricia Barajas) Acute and chronic respiratory failure with hypoxia (Acute) COPD exacerbation (Acute) Pneumonia (Resolved) Sepsis (Resolved) Cataract (Acute) Encephalopathy (Acute) Hypoxia (Acute) Hyperglycemia (Acute) Acute respiratory failure (Acute) CAP (community acquired pneumonia) (Acute) Diarrhea (Resolved) Hypokalemia (Resolved) 1. Acute on chronic hypoxic respiratory failure secondary to acute bilateral PE-CTA on admission with bilateral pulmonary emboli. Echocardiogram demonstrated EF 55%, stage I diastolic dysfunction. Oxygen now stable on baseline O2 requirements. Patient intermittently hypotensive. Significant dyspnea with minimal exertion. Will monitor overnight. Therapeutic Lovenox. Plan to transition to oral anticoagulation tomorrow. 2. Chronic hypoxic respiratory failure secondary to chronic COPD-wears 3 L nasal cannula continuously at baseline although noncompliant with prescribed oxygen regimen. As needed albuterol aerosol. 3. Acute metabolic encephalopathy secondary to #1- resolved. 4. CAD with history of PCI-continue aspirin, Plavix, statin, beta-camila, lisinopril. 5. Chronic neutrophilia-currently resolved. 6. GERD/history of peptic ulcer-continue omeprazole, Carafate regimen. 7. Anxiety/depression/schizophrenia-continue Cymbalta, BuSpar, risperidone, trazodone regimen. 8. Hypertension-stable, continue amlodipine, lisinopril, metoprolol, lasix. 9. Hyperlipidemia-continue statin regimen. 10. Tobacco dependence- encouraged cessation. 11. Morbid obesity- encouraged diet and lifestyle modifications. 12. RACHEL- BIPAP q HS DVT prophylaxis-Lovenox sc This patient was seen by ERROL Lunsford under the supervision of Dr. Winston. <Gloria Winston - Last Filed: 11/21/18 17:28> - Physical Exam Vital Signs Temp Pulse Resp BP Pulse Ox 98.1 F 75 16 93/62 94 11/21/18 16:00 11/21/18 16:03 11/21/18 16:00 11/21/18 16:03 11/21/18 16:00 Oxygen Flow Rate (L/min) [ 3 AMBULATION with Oxygen] Oxygen Flow Rate (L/min) 2 Oxygen Delivery Method Nasal Cannula Weight: 112.6 kg Body Mass Index (BMI) 40.3 Orthostatic Vital Signs Start: 11/21/18 16:03 Freq: q24h Status: Active Protocol: Activity Type Activity Date Activity User E-Sign Co-Sign Detail Recorded Client Recorded Date Recorded By Document 11/21/18 16:03 EN [id number] 11/21/18 16:05 EN 11/21/18 16:03 Orthostatic Vitals Standing -Blood Pressure (90/60-120/80) 108/56 L -Extremity Use Left Arm -Pulse Rate (60-100) 81 Sitting -Blood Pressure (90/60-120/80) 100/58 L -Extremity Use Left Arm -Pulse Rate (60-100) 83 Lying -Blood Pressure (90/60-120/80) 93/62 -Extremity Use Right Arm -Pulse Rate (60-100) 75 Intake and Output for Last 24 Hours 11/19/18 11/20/18 11/21/18 23:59 23:59 23:59 Intake Total 1933 / 1933 507 / 507 Output Total 0 / 0 Balance 1933 507 / 507 Microbiology Past 72 Hours 11/20/18 13:15 Urine Culture - Preliminary Urine Catheter - Snider Mixed Gram Positive Organisms 11/20/18 15:45 Respiratory Panel (PCR) - Final Mucosa - Nasopharyngeal 11/20/18 13:15 Legionella Antigen - Final Urine Catheter - Snider 11/20/18 13:15 Streptococcus pneumoniae Antigen (M - Final Urine Catheter - Snider Laboratory Tests Past 24 Hrs 11/21/18 11/21/18 06:05 06:05 WBC 8.3 RBC 3.96 L Hgb 12.0 Hct 38.2 MCV 96.5 MCH 30.3 MCHC 31.4 L RDW Std Deviation 54.4 H RDW Coeff of Kaycee 15.3 H Plt Count 183 MPV 9.7 Immature Gran % (Auto) 0.400 Neut % (Auto) 69.9 Lymph % (Auto) 16.0 L Turner % (Auto) 10.8 H Eos % (Auto) 2.2 Baso % (Auto) 0.7 Absolute Neuts (auto) 5.8 Absolute Lymphs (auto) 1.33 Nucleated RBC % 0 Sodium 138 Potassium 3.7 Chloride 101 Carbon Dioxide 32.0 Anion Gap 5 BUN 6 L Creatinine 0.86 Estim Creat Clear Calc 65.33 Est GFR (MDRD) Af Amer 89 Est GFR (MDRD) Non-Af 73 BUN/Creatinine Ratio 7.0 L Glucose 220 H Calcium 9.3 Triglycerides 273 H Cholesterol 151 LDL Cholesterol 67 VLDL Cholesterol 55 H HDL Cholesterol 29 L TSH 0.99 POC Glucose 11/21/18 11/21/18 11/21/18 11:53 06:54 04:28 POC Glucose 227 H 228 H 244 H 11/20/18 21:58 POC Glucose 208 H Assessment/Plan This patient was seen in conjunction with Meseret Delgado NP. I have independently interviewed and examined the patient and reviewed pertinent historical, laboratory, and other data. Please refer to her note for patient's presentation, findings, and recommendations. Patient was seen and examined. She still very short of breath. Remains on 2 L of oxygen. No acute events overnight. Vitals were reviewed -stable, not orthostatic Physical Exam: Gen: Morbidly obese, appears in mild respiratory distress, not pale, not jaund iced, alert oriented x3 CVS:HS I +II, regular, no murmurs RESP: Diminished at lung bases, wheezes++ GI: BS present and normal, nontender, no palpable organs EXT:No edema 2D echo shows EF of 55%, stage I diastolic dysfunction ASSESSMENT: 1. Acute on chronic hypoxic respiratory failure 2. Acute bilateral PE 3. Acute metabolic encephalopathy, resolved 4. CAD s/p PCI 5. Hypertension 6. Anxiety/depression/schizophrenia 7. Nicotine dependence Meds reviewed Plan: Continue with breathing treatments Continue on Lovenox therapeutic dosing Possible discharge in a.m. with Eliquis or Xarelto Code Visit Inpatient E&M: 11883 Subs Hosp L2
[2018-11-21] MEDS: Acetaminophen 325 MG Tablet 650 MG PO ×2 (16:14→22:25)
[2018-11-21] MEDS: Glucerna Shake 120 ML LIQUID PO (16:16)
--- NOTE | 2018-11-21 19:03 | NURSING ---
read and reviewed SN charting
[2018-11-21 21:40] LABS: Bedside Glucose 245 mg/dL (70-110)
[2018-11-21 21:50] LABS: Bedside Glucose 228 mg/dL (70-110)
[2018-11-21] MEDS: Atorvastatin Calcium 80 MG Tablet PO (21:54)
[2018-11-21] MEDS: RisperiDONE 2 MG Tablet 4 MG PO (21:54)
[2018-11-21] MEDS: traZODone 100 MG Tablet 200 MG PO (21:54)
[2018-11-21] MEDS: Lisinopril 20 MG Tablet PO (21:54)
[2018-11-21] MEDS: Montelukast 10 MG Tablet PO (21:54)
[2018-11-22] VITALS (12 sets, daily range): BP systolic 99–137; BP diastolic 47–65; PULSE 63–78; RESP 12–18; TEMP 36.4–36.8; O2SAT 88–96
[2018-11-22] MEDS: Enoxaparin 100 MG/ML Syringe SC (06:28)
[2018-11-22] MEDS: Pregabalin 75 MG Capsule PO (06:28)
[2018-11-22] MEDS: Sucralfate 1 GM Tablet PO ×2 (06:28→12:02)
[2018-11-22] MEDS: Insulin Lispro 100 UNIT/ML INSULN.PEN SC ×2 (06:28→12:02)
[2018-11-22 06:35] LABS: Bedside Glucose 174 mg/dL (70-110)
[2018-11-22] MEDS: Ipratropium/Albuterol Sulfate 3 ML AMPUL.NEB INHALATION ×2 (07:10→11:04)
[2018-11-22] MEDS: tiZANidine HCl 2 MG Tablet 6 MG PO (08:54)
[2018-11-22] MEDS: Pantoprazole Sodium 40 MG Tablet PO (08:55)
[2018-11-22] MEDS: busPIRone 15 MG TABLET 30 MG PO (08:55)
[2018-11-22] MEDS: Tolterodine Tartrate 4 MG CAP.SA PO (08:55)
[2018-11-22] MEDS: Metoprolol(XL)Succ 50 MG Tablet PO (08:55)
[2018-11-22] MEDS: Clopidogrel Bisulfate 75 MG Tablet PO (08:55)
[2018-11-22] MEDS: DULoxetine Hcl 60 MG Capsule 120 MG PO (08:55)
[2018-11-22] MEDS: amLODIPine 10 MG Tablet PO (08:55)
[2018-11-22] MEDS: Glucerna Shake 120 ML LIQUID PO (09:00)
--- NOTE | 2018-11-22 09:50 | CASEMGMT ---
[place] [facility] [place] home [place] is for 2liters with ambulation at this time. Pt will be tested on room air at rest and with 2 liters with ambulation to see if she needs new order sent at this time. Nereida SANTIAGO CM
--- NOTE | 2018-11-22 11:22 | PCM.DC ---
- Discharge Diagnoses Current Active Problems: Current Active and Chronic Problems (Last Reviewed 08/13/18 @ 12:58 by Tricia Barajas) Encephalopathy (Acute) Hypoxia (Acute) Hyperglycemia (Acute) You will use the following diet at home:: Calorie/Carbohydrate Controlled (specify 1200, 1400, etc) - 1800 kiel / day Your food should be the consistency of: Regular Your liquids should be the consistency of: Regular/Thin Discharge Activity: Return to Normal Activity Allergies/Adverse Reactions: Allergies amoxicillin Allergy (Verified 11/20/18 12:37) Itching erythromycin base Allergy (Verified 11/20/18 12:37) Unknown methadone Allergy (Verified 11/20/18 12:37) Itching metolazone Allergy (Verified 11/20/18 12:37) Unknown Penicillins Allergy (Verified 11/20/18 12:37) Hives Sulfa (Sulfonamide Antibiotics) Allergy (Verified 11/20/18 12:37) Hives clarithromycin [From Biaxin] Adverse Reaction (Verified 11/20/18 12:37) Nausea ibuprofen Adverse Reaction (Verified 11/20/18 12:37) Other 3 BLEEDING ULCURS morphine Adverse Reaction (Verified 11/20/18 12:37) Other HEADACHE Medications to take at Discharge Atorvastatin Calcium [Lipitor] 80 mg PO QHS 08/22/15 Clopidogrel Bisulfate [Plavix] 75 mg PO DAILY 08/22/15 Metoprolol(XL)Succ [Toprol Xl (Beta Trino)] 50 mg PO DAILY 08/22/15 Nitroglycerin 0.4 mg SL PRN PRN 11/08/16 Duloxetine Hcl [Cymbalta] 120 mg PO DAILY 01/16/17 amlodipine 10 mg tablet 10 mg PO BID tab 05/02/17 potassium chloride ER 10 mEq tablet,extended release(part/cryst) 10 meq PO DAILY #60 tab 06/16/17 Omeprazole 40 mg PO DAILY 03/08/18 Pregabalin [Lyrica] 75 mg PO TID 03/08/18 Risperidone 4 mg PO QHS 03/08/18 Tizanidine HCl 6 mg PO TID PRN PRN 03/08/18 traZODone [Desyrel] 200 mg PO QHS 03/08/18 Buspirone HCl 30 mg PO BID 04/13/18 fluticasone propionate-salmeterol 230 mcg-21 mcg/actuation HFA inhaler 2 puff INHALATION BID #12 g 08/09/18 Sucralfate [Carafate] 1 gm PO 4X/DAY 08/16/18 Albuterol Aerosols [Ventolin Aerosols] 2.5 mg INHALATION Q4H PRN 08/19/18 albuterol sulfate HFA 90 mcg/actuation aerosol inhaler 2 puff INHALATION Q4H PRN PRN #18 g 10/31/18 montelukast 10 mg tablet 10 mg PO QHS #30 tab 10/31/18 tiotropium bromide 2.5 mcg/actuation mist for inhalation 2 puff INHALATION DAILY #1 device 10/31/18 Acetaminophen [Tylenol] 500 mg PO Q6H PRN PRN 11/20/18 Furosemide [Lasix] 20 mg PO DAILY 11/20/18 Lisinopril 20 mg PO QHS 11/20/18 Mirabegron [Myrbetriq] 25 mg PO DAILY 11/20/18 Soy Isofla/Blk Cohosh/Mag Bark [Estroven 155 mg Capsule] 155 mg PO DAILY 11/20/18 Apixaban [Eliquis] 5 mg PO BID #74 tab 11/22/18 Insulin Glargine [Lantus (BKC)] 12 units SUBCUT QHS #1 pen 11/22/18 The following prescriptions were given: Apixaban [Eliquis] 5 mg PO BID #74 tab Transmission Status: Pending to [facility] [id number] Insulin Glargine [Lantus (BKC)] 12 units SUBCUT QHS #1 pen Transmission Status: Pending to [facility] [id number] Orders to be completed after discharge: Glucometer Location: None Selected Primary Care Physician: Janel Taylor MD [Primary Care Provider] - Please follow up with your Primary Care Physician in: 1 week Test Results: Test results from this visit will be discussed in further detail at your follow-up appointment, if applicable. Proposed Discharge Date: 11/22/18
--- NOTE | 2018-11-22 11:55 | CASEMGMT ---
Per Octaviano AYALA, pt to be sent home on Eliquis and Lantus. Meds e-scribed to [facility] previously. Call to pharmacy technician infusion and per tech, pt has no co-pay for either med at this time. Octaviano AYALA updated at this time, voices understanding. Nereida SANTIAGO CM
[2018-11-22 12:41] LABS: Bedside Glucose 306 mg/dL (70-110)
--- NOTE | 2018-11-22 15:07 | DS.PCM_ITS ---
<Glenn Guerra - Last Filed: 11/22/18 15:07> Discharge Date and Diagnosis Date of Admission: 11/20/18 Date of Discharge: 11/22/18 - Primary Discharge Diagnosis BL PE's Uncontrolled DMt2 with morbid obesity Chronic hypoxic respiratory failure 2/2 COPD RACHEL Schizophrenia CAD HTN Tobacco abuse - Secondary Discharge Diagnosis Chronic Problems (Last Reviewed 08/13/18 @ 12:58 by Tricia Barajas) Iron deficiency (Chronic) Stage 2 moderate COPD by GOLD classification (Chronic) HTN (hypertension) (Chronic) Peptic ulcer (Chronic) Epigastric pain (Chronic) Chronic neutrophilia (Chronic) Iron deficiency anemia following bariatric surgery (Chronic) Osteoarthritis (Chronic) Morbid obesity (Chronic) Neutrophilic leukocytosis (Chronic) Type 2 diabetes mellitus (Chronic) Schizophrenia (Chronic) Hip osteoarthritis (Chronic) with chronic pain-right hip Iron deficiency anemia due to dietary causes (Chronic) exact cause of iron def anemia unknown-felt likely secondary to past history gastric bypass- although chronic blood loss etiology a possibility (has never had colonoscopy)-further workup including hemoccult stool is recommended Microcytic anemia (Chronic) Morbid obesity with BMI of 45.0-49.9, adult (Chronic) Pulmonary hypertension (Chronic) Chronic narcotic use (Chronic) Depression (Chronic) Gastroesophageal reflux disease (Chronic) Parathyroid abnormality (Chronic) History of PTCA (Chronic) Vitamin D deficiency (Chronic) Hyperlipidemia (Chronic) History of peptic ulcer disease (Chronic) Thyroid nodule (Chronic) deemed to be benign. Benign essential hypertension (Chronic) CAD (coronary artery disease) (Chronic) RACHEL (obstructive sleep apnea) (Chronic) 17/13 cm of water Spinal stenosis of lumbar region at multiple levels (Chronic) Tobacco abuse (Chronic) COPD (chronic obstructive pulmonary disease) with emphysema (Chronic) Hospital Course and Treatment Imaging Results: RAD/Chest PA and Lateral IMPRESSION: Vascular congestion and mild degree of CHF. CT/CTA Chest W/WO Contrast IMPRESSION: Bilateral pulmonary emboli. Increased markings at the lung bases suggestive of atelectasis and/or scarring. Echo: Interpretation Summary The estimated ejection fraction is 55 %. Stage 1 diastolic dysfunction. Unable to estimate RV systolic pressure due to insufficient tricuspid regurgitant envelope. Trivial aortic valve insufficiency. The study was technically difficult. Contrast injection was performed. Operations: None, total hip replacement Procedures: 2-D Echocardiogram Summary of Care Provided: Hospital Course: The patient is a 53 year old F with past medical history as above who presented to the emergency room with increased shortness of breath, generalized weakness, and confusion over the past several days. She also noted that her blood sugar had been fluctuating and was running in the 400s, and that she was not using her insulin because she did not have any needles. A CT of the chest was obtained and did show bilateral PEs. Risk factors for PE for her include sedentary lifestyle and that she smokes 2 ppd, however she also has a family hx of blood clots - mother and cousin. Blood sugar was elevated at 284. She was admitted to the PCU and placed on telemetry. She was started on subcutaneous Lovenox for PE. She was given sliding scale insulin to control her blood sugars. A1c was 8.8. BNP was negative. She underwent an echocardiogram which was unremarkable as above. Her TSH was normal. She had no events on telemetry. She was significantly improved with improved breathing and no increased oxygen demand, and no confusion. She was prescribed Eliquis for the PEs, and I placed her on Lantus for her type 2 diabetes, in addition to providing her with all the diabetic supplies she will need at home. She was discharged home in stable condition. She will need to follow-up with her PCP in 1 to 2 weeks. This patient was seen by Glenn Guerra PA-C under the supervision of Doctor Winston. [] - Physical Exam General: Alert, Oriented x3, Cooperative HEENT: Atraumatic, PERRLA, EOMI, Normocephalic Neck: Supple, No JVD, Negative Carotid Bruits Lungs: Clear to auscultation, Diminished Cardiovascular: Regular rate, No murmurs Abdomen: Bowel Sounds Present, Soft, Non Tender, Obese Extremities: No edema, Capillary Refill Less than 3 Seconds Skin: No rashes, No breakdown Musculoskeletal: No Tenderness to Palpation of Joints or Extremities Neurological: Cranial nerves II-XII grossly intact Psych/Mental Status: Normal Affect, Appropriate, Alert and oriented to time, place, person, mood and affect Vital Signs Temp Pulse Resp BP Pulse Ox 98.2 F 74 16 126/65 H 93 11/22/18 12:11/22/18 12:11/22/18 12:11/22/18 12:11/22/18 12:09 Oxygen Flow Rate (L/min) [ 2 AMBULATION with Oxygen] Oxygen Flow Rate (L/min) 2 Oxygen Delivery Method Nasal Cannula Weight: 243 lb 2.718 oz Body Mass Index (BMI) 40.3 Intake and Output for Last 24 Hours 11/20/18 11/21/18 11/22/18 23:59 23:59 23:59 Intake Total 1933 1497 / 1497 120 / 120 Output Total 0 / 0 Balance 1933 1497 / 1497 120 / 120 Microbiology Past 72 Hours 11/20/18 13:15 Urine Culture - Final Urine Catheter - Snider Lactobacillus sp. Mixed Gram Positive Organisms 11/20/18 15:45 Respiratory Panel (PCR) - Final Mucosa - Nasopharyngeal 11/20/18 13:15 Legionella Antigen - Final Urine Catheter - Snider 11/20/18 13:15 Streptococcus pneumoniae Antigen (M - Final Urine Catheter - Snider POC Glucose 11/22/18 11/22/18 11/21/18 12:01 06:27 21:42 POC Glucose 306 H 174 H 228 H 11/21/18 16:01 POC Glucose 245 H Discharge Diet: Low fat/ Low Cholesterol, 1800 Calorie Control Diet, 2000 mg Sodium Diet Discharge Activity: Return to Normal Activity Home Medications: Medications to take at Discharge Atorvastatin Calcium [Lipitor] 80 mg PO QHS 08/22/15 Clopidogrel Bisulfate [Plavix] 75 mg PO DAILY 08/22/15 Metoprolol(XL)Succ [Toprol Xl (Beta Trino)] 50 mg PO DAILY 08/22/15 Nitroglycerin 0.4 mg SL PRN PRN 11/08/16 Duloxetine Hcl [Cymbalta] 120 mg PO DAILY 01/16/17 amlodipine 10 mg tablet 10 mg PO BID tab 05/02/17 potassium chloride ER 10 mEq tablet,extended release(part/cryst) 10 meq PO DAILY #60 tab 06/16/17 Omeprazole 40 mg PO DAILY 03/08/18 Pregabalin [Lyrica] 75 mg PO TID 03/08/18 Risperidone 4 mg PO QHS 03/08/18 Tizanidine HCl 6 mg PO TID PRN PRN 03/08/18 traZODone [Desyrel] 200 mg PO QHS 03/08/18 Buspirone HCl 30 mg PO BID 04/13/18 fluticasone propionate-salmeterol 230 mcg-21 mcg/actuation HFA inhaler 2 puff INHALATION BID #12 g 08/09/18 Sucralfate [Carafate] 1 gm PO 4X/DAY 08/16/18 Albuterol Aerosols [Ventolin Aerosols] 2.5 mg INHALATION Q4H PRN 08/19/18 albuterol sulfate HFA 90 mcg/actuation aerosol inhaler 2 puff INHALATION Q4H PRN PRN #18 g 10/31/18 montelukast 10 mg tablet 10 mg PO QHS #30 tab 10/31/18 tiotropium bromide 2.5 mcg/actuation mist for inhalation 2 puff INHALATION DAILY #1 device 10/31/18 Acetaminophen [Tylenol] 500 mg PO Q6H PRN PRN 11/20/18 Furosemide [Lasix] 20 mg PO DAILY 11/20/18 Lisinopril 20 mg PO QHS 11/20/18 Mirabegron [Myrbetriq] 25 mg PO DAILY 11/20/18 Soy Isofla/Blk Cohosh/Mag Bark [Estroven 155 mg Capsule] 155 mg PO DAILY 11/20/18 Apixaban [Eliquis] 5 mg PO BID #74 tab 11/22/18 Insulin Glargine [Lantus (BKC)] 12 units SUBCUT QHS #1 pen 11/22/18 Following Prescrptions Were Given to Patient: Apixaban [Eliquis] 5 mg PO BID #74 tab Transmission Status: Received by [facility] [id number] Insulin Glargine [Lantus (BKC)] 12 units SUBCUT QHS #1 pen Transmission Status: Received by [facility] [id number] Other Amb Orders: Glucometer Location: None Selected Primary Care Physician: Janel Taylor MD [Primary Care Provider] - Please follow up with your Primary Care Physician in: 1 week Please Follow Up With: Janel Taylor MD Disposition: Home Minutes spent on discharge:: 35 Patient Condition:: Stable Medical Necessity - Tobacco Use Smoking Status: Heavy Smoker (>10/day) Tobacco Use: Cigarettes Meaningful Use Info Meaningful Use Diagnoses (Choose all that apply): VTE - VTE Anticoag overlap given w/in hospital stay or rx'd at fl?: No Pt receive overlap for 5 days?: No Reason overlap not ordered, prescribed, or given for 5 days: Procedure Not Indicated <Gloria Winston - Last Filed: 11/23/18 16:56> Discharge Date and Diagnosis - Secondary Discharge Diagnosis Chronic Problems (Last Reviewed 08/13/18 @ 12:58 by Tricia Barajas) Iron deficiency (Chronic) Stage 2 moderate COPD by GOLD classification (Chronic) HTN (hypertension) (Chronic) Peptic ulcer (Chronic) Epigastric pain (Chronic) Chronic neutrophilia (Chronic) Iron deficiency anemia following bariatric surgery (Chronic) Osteoarthritis (Chronic) Morbid obesity (Chronic) Neutrophilic leukocytosis (Chronic) Type 2 diabetes mellitus (Chronic) Schizophrenia (Chronic) Hip osteoarthritis (Chronic) with chronic pain-right hip Iron deficiency anemia due to dietary causes (Chronic) exact cause of iron def anemia unknown-felt likely secondary to past history gastric bypass- although chronic blood loss etiology a possibility (has never had colonoscopy)-further workup including hemoccult stool is recommended Microcytic anemia (Chronic) Morbid obesity with BMI of 45.0-49.9, adult (Chronic) Pulmonary hypertension (Chronic) Chronic narcotic use (Chronic) Depression (Chronic) Gastroesophageal reflux disease (Chronic) Parathyroid abnormality (Chronic) History of PTCA (Chronic) Vitamin D deficiency (Chronic) Hyperlipidemia (Chronic) History of peptic ulcer disease (Chronic) Thyroid nodule (Chronic) deemed to be benign. Benign essential hypertension (Chronic) CAD (coronary artery disease) (Chronic) RACHEL (obstructive sleep apnea) (Chronic) 17/13 cm of water Spinal stenosis of lumbar region at multiple levels (Chronic) Tobacco abuse (Chronic) COPD (chronic obstructive pulmonary disease) with emphysema (Chronic) Hospital Course and Treatment Summary of Care Provided: The patient is a 53 year old F with PMHX of morbid obesity, type II DM who presented to the emergency department with progressive shortness of breath and confusion. Patient was noted to be hyperglycemic. Her work-up in the emergency department was significant for bilateral PE on CT of the chest. She was admitted to the telemetry floor and started on therapeutic Lovenox. She underwent a 2D echo that did not show a right ventricular strain. Patient has chronic hypoxic respiratory failure secondary to COPD. She was on 3 L of oxygen by however she continued to be very symptomatic and dyspneic with minimal exertion. Patient was kept 1 more day because she could not easily be discharged with progressive dyspnea. On the day of discharge, patient was seen and examined. She felt much improved. She feels more comfortable on her 3 L of oxygen. Blood sugars were slightly improved. Diabetic education was given on the bedside. She was started on Lantus for aggressive blood sugar control. 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 Counseled on continuing on Eliquis. Physical Exam: Gen: Morbidly obese, appears in mild respiratory distress, not pale, not jaundiced, alert oriented x3 CVS:HS I +II, regular, no murmurs RESP: Diminished at lung bases, wheezes++ GI: BS present and normal, nontender, no palpable organs EXT:No edema ASSESSMENT: 1. Acute on chronic hypoxic respiratory failure 2. Acute bilateral PE 3. Acute metabolic encephalopathy, resolved 4. CAD s/p PCI 5. Hypertension 6. Anxiety/depression/schizophrenia 7. Nicotine dependence - Physical Exam Vital Signs Temp Pulse Resp BP Pulse Ox 98.2 F 74 16 126/65 H 93 11/22/18 12:09 11/22/18 12:09 11/22/18 12:09 11/22/18 12:09 11/22/18 12:09 Oxygen Flow Rate (L/min) [ 2 AMBULATION with Oxygen] Oxygen Flow Rate (L/min) 2 Oxygen Delivery Method Nasal Cannula Weight: 110.3 kg Body Mass Index (BMI) 40.3 Intake and Output for Last 24 Hours 11/21/18 11/22/18 11/23/18 23:59 23:59 23:59 Intake Total 1497 / 1497 120 / 120 Output Total 0 / 0 Balance 1497 / 1497 120 / 120 Microbiology Past 72 Hours 11/20/18 13:15 Urine Culture - Final Urine Catheter - Snider Lactobacillus sp. Mixed Gram Positive Organisms 11/20/18 15:45 Respiratory Panel (PCR) - Final Mucosa - Nasopharyngeal 11/20/18 13:15 Legionella Antigen - Final Urine Catheter - Snider 11/20/18 13:15 Streptococcus pneumoniae Antigen (M - Final Urine Catheter - Snider Code Visit Inpatient E&M: 39095 Disch Hosp
--- NOTE | 2018-11-23 15:21 | CASEMGMT ---
PAMELA ALVAREZ Discharge Follow-Up Phone Call. Leanna: 14 Strata: 4 Discharge Date: 11/23/18 Adm Dx: Hypoxia, Unknown Etiology Call to pt to inquire about how she has been doing since being discharged from the hospital. Pt stated, I'm still not very good. Pt states, I've still been having a lot of dizzy spells and I just fell a little bit ago into the coffee table when I was walking back from the kitchen. Pt stated she has called her PCP's office/Dr Taylor this AM and informed them of her dizziness, but that she was informed that Dr Taylor is not in the office today. She states she is awaiting a call back from the nurse @ Dr Taylor's office. Pt states that the dizziness started about a week ago and has been on-going/has not improved. She states, I'm not as flighty as I was when I first came into the hospital. I am thinking much clearer now. It's just the dizziness that I'm concerned about. Pt states that she lives alone and does not have any family/friends that can stay with her tonight. She states she does have a male friend who lives a floor above her that checks on her occasionally. Pt reports that she did receive the new prescriptions for the Eliquis and Lantus and denies having any questions about the medications, insulin administration, discharge instructions, or follow-up appts. Pt advised to return to [facility] ER to be evaluated d/t the on-going symptoms and fall. She states she does not have anyone that can provide transportation and so she will call the squad. Pt stated again that she is very concerned and appreciated PAMELA ALVAREZ calling her. Nyasia BERKOWITZ RN, CM
== END 2018-11-22 12:34 | disposition home or self-care (01) | DRG 176 ==
LOC: ED 14:51 → PCU 15:12
PROVIDERS: Admitting Provider Family Medicine; Emergency Provider Emergency Medicine; Family Provider Family Medicine; PCP Family Medicine; Referring Provider Family Medicine; Visit Provider Internal Medicine
DX: I26.99 Other pulmonary embolism without acute cor pulmonale (principal); J44.1 Chronic obstructive pulmonary disease with (acute) exacerbation; Z68.41 Body mass index [BMI] 40.0-44.9, adult; J96.11 Chronic respiratory failure with hypoxia; E11.65 Type 2 diabetes mellitus with hyperglycemia; T38.0X5A Adverse effect of glucocorticoids and synthetic analogues, initial encounter; Y92.9 Unspecified place or not applicable; I25.10 Atherosclerotic heart disease of native coronary artery without angina pectoris; I27.20 Pulmonary hypertension, unspecified; I10 Essential (primary) hypertension; E78.5 Hyperlipidemia, unspecified; D50.9 Iron deficiency anemia, unspecified; K21.0 Gastro-esophageal reflux disease with esophagitis; K27.7 Chronic peptic ulcer, site unspecified, without hemorrhage or perforation; M16.11 Unilateral primary osteoarthritis, right hip; G89.29 Other chronic pain; G47.33 Obstructive sleep apnea (adult) (pediatric); E55.9 Vitamin D deficiency, unspecified; F20.9 Schizophrenia, unspecified; F32.9 Major depressive disorder, single episode, unspecified; F41.9 Anxiety disorder, unspecified; F17.210 Nicotine dependence, cigarettes, uncomplicated; E66.01 Morbid (severe) obesity due to excess calories; Z79.891 Long term (current) use of opiate analgesic; Z79.01 Long term (current) use of anticoagulants; Z79.02 Long term (current) use of antithrombotics/antiplatelets; Z79.4 Long term (current) use of insulin; Z79.52 Long term (current) use of systemic steroids; Z79.899 Other long term (current) drug therapy; Z98.61 Coronary angioplasty status; Z98.84 Bariatric surgery status
CPT/HCPCS: 36415; 71046; 71275; 80048; 80061; 81001; 82009; 82962; 83036; 83735; 83880; 84443; 85025; 87086; 87088; 87449; 87633; 93005; 93306; 94002; 94003; 94640; 97802; 99285; 99406; J7030; Q9957; Q9967; A4216; C8929; J1940

== ENCOUNTER 2018-11-23 16:26 | Emergency (ER) | payer MEDICARE, SELFPAY ==
[2018-11-20 15:38] VITALS: BMI 40.3
[2018-11-23 16:28] VITALS: BP 140/83; PULSE 80; RESP 22; TEMP 37.4; O2SAT 94; BMI 43.0
[2018-11-23 16:32] VITALS: O2SAT 94
--- NOTE | 2018-11-23 17:12 | EKG12_ITS ---
Test Reason : DIZZINESS Blood Pressure : / mmHG Vent. Rate : 075 BPM Atrial Rate : 075 BPM P-R Int : 150 ms QRS Dur : 088 ms QT Int : 374 ms P-R-T Axes : 036 008 038 degrees QTc Int : 417 ms Normal sinus rhythm Normal ECG Confirmed by MARYAM TAFOYA, JAZZMINE ([id number]), videotape editor MARTHA SCOTT ([id number]) on 11/26/2018 9:18:35 AM Referred By: MONICA Confirmed By:JAZZMINE FRANCISCO MD
[2018-11-23] MEDS: Meclizine HCl 25 MG Tablet PO (17:38)
--- NOTE | 2018-11-23 17:40 | RAD_ITS ---
STUDY: X-RAY CHEST REASON FOR EXAM: Female, 53 years old. Dizziness TECHNIQUE: PA and lateral views of the chest. COMPARISON: 11/20/2018 FINDINGS: The lungs are clear and expanded. There is no demonstrated pleural abnormality. Normal size heart. Normal mediastinum and alden. Normal visualized pulmonary arteries. Normal visualized aortic arch and descending thoracic aorta. Normal visualized thoracic spine. Normal visualized ribs, clavicles, and shoulders. There is no demonstrated abnormality of the visualized soft tissue structures of the upper abdomen. RAD/Chest PA and Lateral IMPRESSION: Normal x-ray examination of the chest. Electronically Signed: Parish Soriano DO at 18:07 EDT Tel , Service support ,
[2018-11-23 17:53] LABS: Absolute Lymphocyte Count 1.25 X10^3/uL (0.83-4.51); Absolute Neutrophil Count 4.2 X10^3/uL (2.0-7.7); Basophil# 0.07 X10^3/uL; Eosinophils% 2.9 % (0-5); Hematocrit 41.3 % (37-47); Hemoglobin 13.4 g/dL (12.0-15.0); Lymphocyte # 1.25 X10^3/ul (4.0); Lymphocyte % 18.4 % (19-41); Mean Corp Hgb Conc 32.4 g/dL (32-36); Mean Corpuscular Hgb 31.2 pg (27.0-32.0); Mean Platelet Vol. 9.8 fl (6.2-12.0); Monocyte# 1.05 X10^3/uL; Monocyte% 15.4 % (0-10); NRBC Flagged by Analyzer 0 % (0-5); Neutrophil % 61.9 % (47-70); Platelet Count 192 K/mm3 (150-450); RBC Distribution Width CV 14.9 % (11.6-14.6); RBC Distribution Width SD 51.5 fl (35.1-43.9); White Blood Count 6.8 K/mm3 (4.4-11.0)
[2018-11-23 18:06] LABS: Anion Gap 2 (5-15); BUN 6 mg/dL (7-18); BUN/Creat Ratio 6.5 RATIO (10-20); Calcium,Total 9.4 mg/dL (8.5-10.1); Chloride 102 mmol/L (98-107); Creatinine, Serum 0.93 mg/dL (0.55-1.02); EST Glomerular Filtration Rate 67 mL/min (>60); Est Glom Filt Rate - Afr Amer 81 mL/min (>60); Estimated Creatinine Clearance 60.41 ml/min; Glucose 213 mg/dL (74-106); Potassium 4.1 mmol/L (3.5-5.1); Sodium Level 135 mmol/L (136-145)
--- NOTE | 2018-11-23 18:10 | CM.ED ---
SOCIAL WORK ASSESSMENT INFORMANT: DR. ANDERSON REASON FOR REFERRAL: D/C PLANNING, HOME HEALTH REFERRAL LIVING SITUATION: PATIENT LIVES HOME ALONE IN AN APARTMENT DME: O2, ROLLATOR SUPPORTS: PATIENT REPORTS GOOD SUPPORT FROM NEIGHBOR WHO LIVES IN SAME APARTMENT COMPLEX. NEIGHBOR ALSO ASSISTS WITH TRANSPORTATION NEEDS. MENTAL HEALTH TREATMENT/HISTORY: PATIENT ADMITS TO HX OF ANXIETY AND DEPRESSION AND STATES IS TREATED WITH MEDICATION. SUBSTANCE ABUSE HISTORY: PATIENT DENIES ANY HX OF SUBSTANCE ABUSE. ASSESSMENT: MET WITH PATIENT IN ROOM. INTRODUCED ROLE AND REASON FOR REFERRAL. PATIENT REPORTS WAS JUST DISCHARGED FROM THE HOSPITAL YESTERDAY AND STILL HAS NOT BEEN FEELING WELL. PATIENT STATES WAS DIZZY AND FELL THIS MORNING. INFORMED PATIENT DR. ANDERSON RECOMMENDING HOME HEALTH. PATIENT IN AGREEMENT. REVIEWED LIST OF PROVIDERS WITH PATIENT AND PATIENT REQUESTING REFERRAL TO [facility]. REFERRAL TO BE FAXED. PATIENT DENIES ANY FURTHER NEEDS. DR. ANDERSON UPDATED PATIENT IN AGREEMENT WITH HOME HEALTH. PLAN: HOME WITH HOME HEALTH REFERRAL TO [facility]. BRENDAN COCHRAN, SULKY DRIVER, BATCH FREEZER.
--- NOTE | 2018-11-23 18:25 | ED.VIS.GEN ---
History of Present Illness Chief Complaint: Dizziness Narrative: Patient presenting secondary to generalized illness. Patient has an underlying history of a recent hospital admission secondary to bilateral pulmonary emboli. She was actually discharged yesterday. Patient reports that throughout her stay in the hospital she fell relatively ill. This was associated with feelings of dizziness and unsteadiness. Patient states that even when she was discharged she was feeling somewhat dizzy and unsteady. She reports that today she suffered a fall where she fell and landed on her elbow on a coffee table. She denies hitting her head or loss of consciousness. She states that the fall was due to her unsteadiness on her feet. She denies any laterality with numbness or weakness. She baseline is short of breath, and is on home oxygen now with 3 L. No new chest pain or hemoptysis. Patient has been taking her anticoagulants as prescribed. She denies any new fevers nausea vomiting or diarrhea. Patient does live alone, has no home health. Past Medical History - Allergies and Home Meds Allergies/Adverse Reactions: Allergies amoxicillin Allergy (Verified 11/23/18 16:32) Itching erythromycin base Allergy (Verified 11/23/18 16:32) Unknown methadone Allergy (Verified 11/23/18 16:32) Itching metolazone Allergy (Verified 11/23/18 16:32) Unknown Penicillins Allergy (Verified 11/23/18 16:32) Hives Sulfa (Sulfonamide Antibiotics) Allergy (Verified 11/23/18 16:32) Hives clarithromycin [From Biaxin] Adverse Reaction (Verified 11/23/18 16:32) Nausea ibuprofen Adverse Reaction (Verified 11/23/18 16:32) Other 3 BLEEDING ULCURS morphine Adverse Reaction (Verified 11/23/18 16:32) Other HEADACHE Primary Care Physician: Janel Taylor MD [Primary Care Provider] - Past Medical History: - - Pulmonary emboli Surgical History: appendectomy, cholecystectomy, tonsillectomy, - - Right lower extremity surgery x3 as well as bone grafting, appendectomy, cholecystectomy, gastric bypass, hernia repairs, hip replacement, tonsillectomy. Smoking Status: Current every day smoker - Family History Sibling Family History: Family History (Last Reviewed 08/13/18 @ 12:58 by Tricia Barajas) Mother Heart disease Cancer Father Hypertension Arthritis Hyperlipemia Grandmother Breast cancer Heart disease Grandfather Heart disease Family History: Reports: Hypertension Paternal Family History: Family History (Last Reviewed 08/13/18 @ 12:58 by Tricia Barajas) Mother Heart disease Cancer Father Hypertension Arthritis Hyperlipemia Grandmother Breast cancer Heart disease Grandfather Heart disease Family History: Reports: High Cholesterol, Heart Disease, Hypertension Maternal Family History: Family History (Last Reviewed 08/13/18 @ 12:58 by Tricia Barajas) Mother Heart disease Cancer Father Hypertension Arthritis Hyperlipemia Grandmother Breast cancer Heart disease Grandfather Heart disease Family History: Reports: Cancer, Heart Disease Review of Systems General: Denies: Fever Respiratory: Reports: Dyspnea Neurological: Reports: - - Dizziness Physical Exam Vital Signs/Narrative: Vital Signs Temp Pulse Resp BP Pulse Ox 11/23/18 16:32 94 11/23/18 16:28 99.4 F H 80 22 H 140/83 H 94 General: Well nourished, Well developed, Obese, No Acute Distress Head: Normocephalic, Atraumatic Eyes: Perrl, EOMI ENT: Moist mucous membranes, No rhinorrhea Neck: Supple, Nontender Cardiovascular: Regular rate, Regular rhythm, No murmurs Respiratory: No distress, CTA bilaterally, Chest nontender Abdomen: Soft, Nontender, Nondistended, Normal bowel sounds Back: Nontender, Normal Inspection Extremities: Nontender, Edema Skin: Normal color, No rash Neurological: Alert, Oriented x3, Cranial nerves II-XII grossly intact, Normal Strength, Normal Sensation, - - Normal cerebellar testing. NIH stroke scale is 0 Psychological: Normal affect, Normal Mood Diagnostic/Tx/Re-eval Chest X-Ray - ED: 2 View, - - PA lateral chest x-ray by my personal review as well as radiology demonstrates chronic changes nothing acute - EKG Initial EKG Interpretation: - - Sinus rhythm at [address] segments normal T waves no evidence of right ventricular strain acute ischemia or arrhythmia - Medical Decision Making Patient presented secondary to some dizziness and shortness of breath in the setting of recent discharge from pulmonary embolism. Patient has a normal neurologic exam, I do not feel that CT imaging of the brain is indicated. CBC chemistry and troponin were unremarkable, EKG demonstrates no evidence of right ventricular strain. Chest x-ray was negative. Patient was given dose of meclizine for dizziness and she did have some improvement. Patient at this point has the same symptoms she had really when she was admitted to the hospital, and I do not feel that she meets any sort of inpatient criteria as she does not seem to have any evidence of worsening pulmonary emboli respiratory failure cardiac strain or other significant etiology. Social work was contacted, and they offered the patient to be evaluated for home health which the patient did consent to and I believe this is appropriate. Patient was discharged with reassurance. ED Disposition - Plan for ED Patient: Disposition: Home or Assisted Living Diagnosis: Vertigo, Pulmonary emboli Instructions: Benign Positional Vertigo, Pulmonary Embolism Referrals: Janel Taylor MD [Primary Care Provider] - 3-5 Days
--- NOTE | 2018-11-23 18:45 | CM.ED ---
Addendum entered by Sara Cochran 11/23/18 18:53: CALL TO [facility]. SPOKE WITH ROLL COATING MACHINE OPERATORTIN CAN FEEDER, SHIRLEY. UPDATED ON NEW REFERRAL. Original Note: SOCIAL WORK REFERRAL FOR HOME HEALTH FAXED TO [facility] PER REQUEST. SARA COCHRAN, DOCK OPERATOR, SUPERVISOR TELEPHONE INFORMATION.
[2018-11-23 18:58] VITALS: BP 138/80; PULSE 84; RESP 20; O2SAT 98
--- NOTE | 2018-11-23 18:58 | ED.RN ---
pt used portable phone to call for a ride, would rather wait outside instead of the lobby/room. All questions answered, no further concerns.
== END 2018-11-23 18:59 | disposition home or self-care (01) ==
PROVIDERS: Emergency Provider Emergency Medicine; Family Provider Family Medicine; PCP Family Medicine
DX: I26.99 Other pulmonary embolism without acute cor pulmonale (principal); R42 Dizziness and giddiness; F17.200 Nicotine dependence, unspecified, uncomplicated; Z79.01 Long term (current) use of anticoagulants; Z79.02 Long term (current) use of antithrombotics/antiplatelets; Z79.4 Long term (current) use of insulin; Z79.899 Other long term (current) drug therapy; Z99.81 Dependence on supplemental oxygen; Z88.1 Allergy status to other antibiotic agents; Z88.0 Allergy status to penicillin; Z88.2 Allergy status to sulfonamides; Z88.6 Allergy status to analgesic agent; Z98.84 Bariatric surgery status; Z90.49 Acquired absence of other specified parts of digestive tract
CPT/HCPCS: 71046; 80048; 84484; 85025; 93005; 99284

== ENCOUNTER 2019-01-10 14:46 | Emergency (ER) | payer MEDICARE, SELFPAY ==
[2019-01-10 14:48] VITALS: BP 150/108; BP 152/73; PULSE 88; PULSE 92; RESP 17; RESP 18; TEMP 36.4; O2SAT 96; BMI 44.2
--- NOTE | 2019-01-10 14:52 | RAD_ITS ---
STUDY: X-RAY - LEFT ANKLE REASON FOR EXAM: Female, 53 years old. Lateral pain and swelling following a twisting injury. TECHNIQUE: 3 view(s) of the ankle. COMPARISON: None. FINDINGS: Normal visualized distal tibia and fibula. Normal medial and lateral malleoli. Normal tibiotalar articulation and ankle mortise. Normal visualized talus and calcaneus. The visualized subtalar, talonavicular, calcaneocuboid and tarsal articulations are normal. Soft tissue swelling. RAD/Ankle min 3 Views IMPRESSION: Soft tissue swelling. Electronically Signed: Manuelito Silva, at 15:17 EST , Service support ,
--- NOTE | 2019-01-10 14:52 | RAD_ITS ---
STUDY: X-RAY - LEFT FOOT CLINICAL: Female, 53 years old. Pain following a twisting injury. TECHNIQUE: 3 view(s) of the foot. COMPARISON: None. FINDINGS: Normal talus, calcaneus, and tarsal bones. Normal visualized subtalar, talonavicular, calcaneocuboid, tarsal and tarsometatarsal articulations. Normal metatarsi. There is degenerative arthrosis of the metatarsophalangeal joint of the hallux with a hallux valgus deformity. Normal tibial and fibular sesamoid bones. Normal interphalangeal joint of the great toe. Normal phalanges of the great toe. Normal second through fifth metatarsophalangeal joints. Normal interphalangeal joints and phalanges of the lesser toes. Soft tissue swelling. RAD/Foot min 3 Views IMPRESSION: Soft tissue swelling. Electronically Signed: Manuelito Silva, at 15:20 EST , Service support ,
--- NOTE | 2019-01-10 15:48 | ED.VISSUMM ---
- ER Visit Summary Date of Service: 01/10/19 Chief Complaint: Left ankle injury History of Present Illness: The patient is a 53 F who presents the emergency department with a left ankle injury. She tells me that last night she was walking to her house she stepped on a pill bottle and rolled the ankle. She did not fall down. She states it was painful but not resolved. And this morning it again was painful and she has had difficulty bearing weight. She put a elastic brace on. No other injuries. Physical Examination: Afebrile vital signs stable There is tenderness to palpation over the lateral malleolus. No medial or posterior malleolus pain. Achilles appears intact. There is tenderness along the occipital fifth metatarsal. Test Results: Foot and ankle films were negative. Emergency Department Course and Treatment: Cast will be applied. Patient will use conservative treatment at home. Follow-up with primary care if not improving return if worsening or concerns Impression: 1. Acute left ankle sprain This note was generated with [employer] dictation software. It may contain incorrect words, spelling, and punctuation that were not noted in review of the chart prior to signing ED Disposition - Plan for ED Patient: Disposition: Home or Assisted Living Instructions: Sprain, Ankle, with X-Ray Referrals: Janel Taylor MD [Primary Care Provider] - 10-14 Days if not better
[2019-01-10 15:50] VITALS: BP 152/98; PULSE 77; RESP 17; O2SAT 97
== END 2019-01-10 15:47 | disposition home or self-care (01) ==
LOC: ED 15:06
PROVIDERS: Emergency Provider Emergency Medicine; Family Provider Family Medicine; PCP Family Medicine
DX: S93.402A Sprain of unspecified ligament of left ankle, initial encounter (principal); X50.1XXA Overexertion from prolonged static or awkward postures, initial encounter; Y93.9 Activity, unspecified; Y92.9 Unspecified place or not applicable; Y99.9 Unspecified external cause status
CPT/HCPCS: 73610; 73630; 99283; J7030; A4216

== ENCOUNTER 2019-01-12 12:03 | Emergency (ER) | payer MEDICARE, SELFPAY ==
[2019-01-12 12:06] VITALS: BP 188/102; PULSE 78; RESP 14; TEMP 36.8; O2SAT 99; BMI 42.9
--- NOTE | 2019-01-12 12:29 | ED.DCSUM_ITS ---
- ER Visit Summary Date of Service: 01/12/19 Chief Complaint: Left ankle pain History of Present Illness: The patient is a 53 F who continues with left ankle pain. She was seen here 4 days ago after spraining. She had negative x-rays of the ankle and foot at that time. Pain is continuing. It is worse with movement. It radiates up the leg. The pain was worse today which made her come to the emergency department. She has been trying Tylenol at home. She has been icing and using the Aircast given to her. She cannot take any other NSAIDs because of ulcers in her stomach. Physical Examination: Vital signs reviewed. Left ankle exam reveals tenderness over the ATFL area. There is no Achilles tenderness. Achilles feels like it is intact. She has no swelling. She does have painful range of motion. Test Results: None performed Emergency Department Course and Treatment: Without any new trauma I do not feel that x-rays are needed at this time. Patient will be given for [place] for pain at home. Oarrs report was reviewed. She does have a couple of prescriptions throughout the year. She will need to follow-up with her doctor for any further medications. Treatment Plan: [] Disposition: Discharge Impression: Left ankle pain, subsequent encounter This note was generated with [employer] dictation software. It may contain incorrect words, spelling, and punctuation that were not noted in review of the chart prior to signing ED Disposition - Plan for ED Patient: Referrals: Janel Taylor MD [Primary Care Provider] -
--- NOTE | 2019-01-12 12:31 | ED.DEP ---
ED Disposition - Plan for ED Patient: Disposition: Home or Assisted Living Instructions: Sprain, Ankle, with X-Ray Prescriptions: Hydrocodone Bitart/Apap 5-325 [[place] 5MG-325MG] 1 tab PO Q4H PRN PRN 2 Days #4 tab PRN Reason: Pain Prescription Printed Referrals: Janel Taylor MD [Primary Care Provider] -
[2019-01-12 12:42] VITALS: BP 143/85; PULSE 79; RESP 16; O2SAT 95
== END 2019-01-12 12:42 | disposition home or self-care (01) ==
PROVIDERS: Emergency Provider Emergency Medicine; Family Provider Family Medicine; PCP Family Medicine
DX: M25.572 Pain in left ankle and joints of left foot (principal); Z87.11 Personal history of peptic ulcer disease; Z79.01 Long term (current) use of anticoagulants; Z79.4 Long term (current) use of insulin; Z79.899 Other long term (current) drug therapy
CPT/HCPCS: 99284

== ENCOUNTER → 2019-02-25 12:28 | Outpatient (CLI) | payer MEDICARE, SELFPAY ==
[2019-01-17 14:26] VITALS: BMI 42.9
[2019-02-25 13:28] VITALS: PULSE 100; PULSE 104; PULSE 105; PULSE 106; PULSE 86; PULSE 90; PULSE 96; O2SAT 94; O2SAT 95; O2SAT 96
--- NOTE | 2019-02-25 13:33 | CPS ---
PATIENT PUSHED ROLLATOR WALKER FOR DURATION OF TESTING. SHE ARRIVED ON 3LPM DEMAND FLOW NC. PLACED ON ROOM AIR FOR 15 MIN PRIOR TO TESTING. ENTIRE WALK TEST DONE WITH PT ON ROOM AIR. SHE REQUIRED REST BREAKS FOR LEG FATIGUE AND SOB.
--- NOTE | 2019-02-26 11:01 | PCM.PSN.6M ---
PSN 6 Minute Walk Test - 6 Minute Walk Test 6 Minute Walk Test: 6 Minute Walk Test PSN:6-Minute Walk Test Start: 02/25/19 13:28 Freq: Status: Active Protocol: [id number].6MINW Document 02/25/19 13:28 [facility] (Rec: 02/25/19 13:34 [facility] [id number]) 6 Minute Walk Test Date Performed 02/25/19 Time Performed 12:30 Height 5 ft 3 in Weight: 255 lb Weight in Pounds 255.[address]: Rosanna Hampton Assistive device used: Walker Pre-test Oxygen Delivery Method Room Air Pulse Ox (%) 96 Pulse Rate (60-100 beats/min) 86 Dyspnea Nishi Scale (0-10) 1 Reported Symptoms Increased Work of Breathing 1st minute Oxygen Delivery Method Room Air Pulse Ox (%) 94 Pulse Rate (60-100 beats/min) 100 Dyspnea Nishi Scale (0-10) 2 Number of Rests Taken 0 Reported Symptoms Increased Work of Breathing 2nd minute Oxygen Delivery Method Room Air Pulse Ox (%) 95 Pulse Rate (60-100 beats/min) 105 H Dyspnea Nishi Scale (0-10) 3 Number of Rests Taken 0 Reported Symptoms Increased Work of Breathing 3rd minute Oxygen Delivery Method Room Air Pulse Ox (%) 95 Pulse Rate (60-100 beats/min) 104 H Dyspnea Nishi Scale (0-10) 3 Number of Rests Taken 0 Reported Symptoms Increased Work of Breathing 4th minute Oxygen Delivery Method Room Air Pulse Ox (%) 95 Pulse Rate (60-100 beats/min) 106 H Dyspnea Nishi Scale (0-10) 4 Number of Rests Taken 1 Reported Symptoms Increased Work of Breathing 5th minute Oxygen Delivery Method Room Air Pulse Ox (%) 95 Pulse Rate (60-100 beats/min) 96 Dyspnea Nishi Scale (0-10) 3 Number of Rests Taken 1 Reported Symptoms Increased Work of Breathing 6th minute Oxygen Delivery Method Room Air Pulse Ox (%) 94 Pulse Rate (60-100 beats/min) 100 Dyspnea Nishi Scale (0-10) 3 Number of Rests Taken 0 Reported Symptoms Increased Work of Breathing Post-test Oxygen Delivery Method Room Air Pulse Ox (%) 96 Pulse Rate (60-100 beats/min) 90 Dyspnea Nishi Scale (0-10) 2 Reported Symptoms Increased Work of Breathing Full Laps Walked 10 Partial Lap, Number of Tiles Walked 24 Total Distance Walked (ft) 614 02/25/19 13:33 Cardiopulmonary Services by Rani June PATIENT PUSHED ROLLATOR WALKER FOR DURATION OF TESTING. SHE ARRIVED ON 3LPM DEMAND FLOW NC. PLACED ON ROOM AIR FOR 15 MIN PRIOR TO TESTING. ENTIRE WALK TEST DONE WITH PT ON ROOM AIR. SHE REQUIRED REST BREAKS FOR LEG FATIGUE AND SOB. Initialized on 02/25/19 13:33 - END OF NOTE - Interpretation Interpretation: The patient ambulated 614 feet over the course of 6 minutes with the use of a walker. Pretesting oxygen saturation was noted to be 96% on room air. With ambulation, the susie oxygen saturation was 94%. Although there was evidence of impaired walk distance, there was no significant exertional oxygen desaturation. - Recommendations Recommendations: There is no indication for the use of supplemental oxygen at this time.
== END ==
PROVIDERS: Family Provider Family Medicine; PCP Family Medicine; Referring Provider Nurse Practitioner Acute Care; Visit Provider Nurse Practitioner Acute Care
DX: J43.9 Emphysema, unspecified (principal)
CPT/HCPCS: 94618

== ENCOUNTER 2019-03-03 15:02 | Emergency (ER) | payer MEDICARE, SELFPAY ==
[2019-01-17 14:26] VITALS: BMI 42.9
[2019-03-03 15:03] VITALS: BP 146/80; PULSE 84; RESP 18; TEMP 36.6; O2SAT 97; BMI 45.1
--- NOTE | 2019-03-03 15:24 | RAD_ITS ---
STUDY: X-RAY - PELVIS AND RIGHT HIP REASON FOR EXAM: Female, 53 years old. FALL, PAIN TO RT HIP AND RT LOWER BACK. MOST RECENT RIGHT FEMUR FX WITH SURGERY X5 YRS AGO TECHNIQUE: 3 views of the pelvis and hip. COMPARISON: 08/17/2018 FINDINGS: There is a non-specific bowel gas pattern. There are atherosclerotic vascular calcifications of the pelvic arteries. There is diffuse demineralization of the osseous structures.There are degenerative changes of the lumbosacral spine. No acute bony process. Right hip replacement stable. Cerclage wires of the proximal femur partially visualized with heterotopic bone and cortical thickening adjacent to the operative region. RAD/HIP, UNI W/ Pelvis 2-3 Views IMPRESSION: No fracture or malalignment. Similar operative changes. Electronically Signed: Nitin Gimenez MD ([place]) at 16:41 EST , Service support ,
--- NOTE | 2019-03-03 15:24 | RAD_ITS ---
STUDY: X-RAY - LUMBAR SPINE REASON FOR EXAM: Female, 53 years old. FALL, PAIN TO RT HIP AND RT LOWER BACK. MOST RECENT RIGHT FEMUR FX WITH SURGERY X5 YRS AGO TECHNIQUE: 3 view(s) of the lumbar spine were obtained. COMPARISON: 05/13/2018 FINDINGS: Normal lumbar lordosis. There is no substantial scoliosis. There is a normal alignment of the vertebrae. There is diffuse demineralization with multi-level endplate spondylosis. There is multi-level degenerative disc disease with multi-level disc space narrowing. L1 compression fracture stable since the prior study. There is atherosclerotic calcification of the abdominal aorta without a demonstrated aneurysm. RAD/Lumbar Spine 2 or 3 Views IMPRESSION: 1. Stable exam. Degenerative changes, as above. 2. Chronic L1 compression fracture. Electronically Signed: Nitin Gimenez MD ([place]) at 16:44 EST , Service support ,
[2019-03-03] MEDS: HYDROmorphone 0.5 MG/0.5 ML SYRINGE SC (16:39)
--- NOTE | 2019-03-03 17:03 | ED.VIS.GEN ---
History of Present Illness Informant: Patient Narrative: 53-year-old female presents with right hip and back pain. States approximately 12 hours ago she was getting up to go to the bathroom when she tripped and fell on her right side. States that she had sharp pain in her right hip and to her back. Denies any numbness, tingling, saddle anesthesia, loss of bowel or bladder. States that she does have issues with her hip as well as her back. With pain management for this issue and receives medical marijuana. Denies any head trauma or loss of consciousness. Patient is on anticoagulation. Was able to crawl back onto the couch after approximately 10 minutes on the ground. Denies any headache, vision change, lightheadedness, dizziness, neck pain. <Hany Sanchez - Last Filed: 03/03/19 18:11> <Aaron Plaza - Last Filed: 03/04/19 00:26> Chief Complaint: Back Past Medical History Past Medical History: - - Chronic hip and back pain Surgical History: appendectomy, cholecystectomy, tonsillectomy, - - Right lower extremity surgery x3 as well as bone grafting, appendectomy, cholecystectomy, gastric bypass, hernia repairs, hip replacement, tonsillectomy. Smoking Status: Current every day smoker - Family History Sibling Family History: Family History (Last Reviewed 03/03/19 @ 17:07 by Hany Sanchez DO) Mother Heart disease Cancer Father Hypertension Arthritis Hyperlipemia Grandmother Breast cancer Heart disease Grandfather Heart disease Family History: Reports: Hypertension Paternal Family History: Family History (Last Reviewed 03/03/19 @ 17:07 by Hany Sanchez DO) Mother Heart disease Cancer Father Hypertension Arthritis Hyperlipemia Grandmother Breast cancer Heart disease Grandfather Heart disease Family History: Reports: High Cholesterol, Heart Disease, Hypertension Maternal Family History: Family History (Last Reviewed 03/03/19 @ 17:07 by Hany Sanchez DO) Mother Heart disease Cancer Father Hypertension Arthritis Hyperlipemia Grandmother Breast cancer Heart disease Grandfather Heart disease Family History: Reports: Cancer, Heart Disease <Hany Sanchez - Last Filed: 03/03/19 18:11> - Family History Sibling Family History: Family History (Last Reviewed 03/03/19 @ 17:07 by Hany Sanchez DO) Mother Heart disease Cancer Father Hypertension Arthritis Hyperlipemia Grandmother Breast cancer Heart disease Grandfather Heart disease Paternal Family History: Family History (Last Reviewed 03/03/19 @ 17:07 by Hany Sanchez DO) Mother Heart disease Cancer Father Hypertension Arthritis Hyperlipemia Grandmother Breast cancer Heart disease Grandfather Heart disease Maternal Family History: Family History (Last Reviewed 03/03/19 @ 17:07 by Hany Sanchez DO) Mother Heart disease Cancer Father Hypertension Arthritis Hyperlipemia Grandmother Breast cancer Heart disease Grandfather Heart disease <Aaron Plaza - Last Filed: 03/04/19 00:26> - Allergies and Home Meds Allergies/Adverse Reactions: Allergies amoxicillin Allergy (Verified 03/03/19 15:10) Itching erythromycin base Allergy (Verified 03/03/19 15:10) Unknown methadone Allergy (Verified 03/03/19 15:10) Itching metolazone Allergy (Verified 03/03/19 15:10) Unknown Penicillins Allergy (Verified 03/03/19 15:10) Hives Sulfa (Sulfonamide Antibiotics) Allergy (Verified 03/03/19 15:10) Hives clarithromycin [From Biaxin] Adverse Reaction (Verified 03/03/19 15:10) Nausea ibuprofen Adverse Reaction (Verified 03/03/19 15:10) Other 3 BLEEDING ULCURS morphine Adverse Reaction (Verified 03/03/19 15:10) Other HEADACHE Primary Care Physician: Janel Taylor MD [Primary Care Provider] - Review of Systems General: Denies: Chills, Fever, Sweats Eyes: Denies: Visual changes - bilaterally, Diplopia ENT: Denies: Rhinorrhea, Sore throat Cardiovascular: Denies: Chest pain, Palpitations Respiratory: Denies: Dyspnea, Cough, Dyspnea on exertion Gastrointestinal: Denies: Abdominal pain, Nausea, Vomiting, Diarrhea, Melena, Hematochezia Genitourinary: Denies: Dysuria, Hematuria, Frequency Musculoskeletal: Reports: Arthralgias, Back pain. Denies: Extremity Pain Skin: Denies: Rash, Wounds Neurological: Denies: Headache, Weakness, Numbness <Hany Sanchez - Last Filed: 03/03/19 18:11> Physical Exam Vital Signs/Narrative: Vital Signs Temp Pulse Resp BP Pulse Ox 03/03/19 15:03 97.9 F 84 18 146/80 H 97 Inital Vital Signs reviewed: Yes General: Well nourished, Well developed, No Acute Distress Head: Normocephalic, Atraumatic Eyes: Perrl, EOMI ENT: Moist mucous membranes, No rhinorrhea Neck: Supple, Nontender Cardiovascular: Regular rate, Regular rhythm, No murmurs Respiratory: No distress, CTA bilaterally, Chest nontender Abdomen: Soft, Nontender, Nondistended, Normal bowel sounds Back: Nontender, Normal Inspection Extremities: No edema, Tenderness - Tenderness to palpation over the right greater trochanteric area as well as right paraspinal lumbar musculature. Skin: Normal color, No rash Neurological: Alert, Oriented x3, Cranial nerves II-XII grossly intact, Normal Strength, Normal Sensation Psychological: Normal affect, Normal Mood <Hany Sanchez - Last Filed: 03/03/19 18:11> Diagnostic/Tx/Re-eval Impressions Hip/Pelvis X-Ray 03/03/19 15:24 IMPRESSION: No fracture or malalignment. Similar operative changes. Electronically Signed: Nitin Gimenez MD ([place]) at 16:41 EST , Service support , Lumbar Spine X-Ray 03/03/19 15:24 IMPRESSION: 1. Stable exam. Degenerative changes, as above. 2. Chronic L1 compression fracture. Electronically Signed: Nitin Gimenez MD ([place]) at 16:44 EST , Service support , 03/03/19 15:24 HIP, UNI W/ Pelvis 2-3 Views [RAD] Stat Lumbar Spine 2 or 3 Views [RAD] Stat - Medical Decision Making Patient appears well nontoxic. Tenderness to palpation of the right hip and back. X-rays negative. Patient given subcutaneous Dilaudid which resolved her pain. Able to ambulate. No evidence of head trauma or other indication necessitating CT of the brain or cervical spine. Patient asked to return for new or worsening's pain. Patient is to follow-up with her pain management physician within the next 48 hours. Patient agreeable and discharged home in stable condition. <Hany Sanchez - Last Filed: 03/03/19 18:11> - Medical Decision Making I saw the patient independent from the resident. She has right hip and back pain after mechanical fall. She does take blood thinners. She was able to catch herself. She denies any head injuries or head pain. Denies any neurologic symptoms. Her exam showed unremarkable vitals. She is tender to palpation to her right hip and back. No other abnormalities on exam. Imaging was performed. Patient was treated with pain medicine. Follow-up with primary care. <Aaron Plaza - Last Filed: 03/04/19 00:26> ED Disposition <Hany Sanchez - Last Filed: 03/03/19 18:11> <Aaron Plaza - Last Filed: 03/04/19 00:26> - Plan for ED Patient: Disposition: Home or Assisted Living Diagnosis: Back pain, Hip pain Instructions: BACK PAIN (Acute or Chronic) Referrals: Janel Taylor MD [Primary Care Provider] -
[2019-03-03 17:22] VITALS: BP 145/78; PULSE 87; RESP 18; O2SAT 98
== END 2019-03-03 17:23 | disposition home or self-care (01) ==
PROVIDERS: Emergency Provider Emergency Medicine; Family Provider Family Medicine; PCP Family Medicine
DX: M25.551 Pain in right hip (principal); M54.9 Dorsalgia, unspecified; G89.29 Other chronic pain; Z79.01 Long term (current) use of anticoagulants; Z79.02 Long term (current) use of antithrombotics/antiplatelets; Z79.4 Long term (current) use of insulin; Z79.899 Other long term (current) drug therapy; F17.200 Nicotine dependence, unspecified, uncomplicated; Z88.0 Allergy status to penicillin; Z88.1 Allergy status to other antibiotic agents; Z88.2 Allergy status to sulfonamides; Z88.6 Allergy status to analgesic agent; Z98.84 Bariatric surgery status; Z90.49 Acquired absence of other specified parts of digestive tract; Z96.641 Presence of right artificial hip joint
CPT/HCPCS: 72100; 73502; 96372; 96374; 99284

== ENCOUNTER 2019-03-04 15:05 | Emergency (ER) | payer MEDICARE, SELFPAY ==
[2019-03-03 15:03] VITALS: BMI 45.1
[2019-03-04 15:07] VITALS: BP 159/78; PULSE 89; RESP 17; TEMP 36.4; O2SAT 94; BMI 45.2
--- NOTE | 2019-03-04 15:25 | ED.DCSUM_ITS ---
History of Present Illness Chief Complaint: Back Informant: Patient Onset: Yesterday Current Severity: Moderate Maximum Severity: Moderate Narrative: Patient suffered a mechanical fall early yesterday morning. She has chronic back and hip pain that was worsened after her fall. She was seen here in the ER yesterday. X-rays of the lumbar spine, pelvis, and right hip were unremarkable. Patient was given subcu Dilaudid and felt improved. Patient states that today her pain is worsened. She tried to call her primary care physician for follow- up but she is out of town this week. Patient does see a pain management doctor in [place]. She states she does not have a signed pain management contract with them. She only receives medical marijuana from them. Patient is currently on Eliquis secondary to pulmonary embolism. - Past Medical History (1) Stage 2 moderate COPD by GOLD classification Status: Chronic (2) HTN (hypertension) Status: Chronic (3) Peptic ulcer Status: Chronic (4) Morbid obesity Status: Chronic (5) Type 2 diabetes mellitus Status: Chronic (6) Schizophrenia Status: Chronic (7) Hip osteoarthritis Status: Chronic Comment: with chronic pain-right hip (8) Pulmonary hypertension Status: Chronic (9) Hyperlipidemia Status: Chronic (10) CAD (coronary artery disease) Status: Chronic Past Medical History - Allergies and Home Meds Allergies/Adverse Reactions: Allergies amoxicillin Allergy (Verified 03/04/19 15:06) Itching erythromycin base Allergy (Verified 03/04/19 15:06) Unknown methadone Allergy (Verified 03/04/19 15:06) Itching metolazone Allergy (Verified 03/04/19 15:06) Unknown Penicillins Allergy (Verified 03/04/19 15:06) Hives Sulfa (Sulfonamide Antibiotics) Allergy (Verified 03/04/19 15:06) Hives clarithromycin [From Biaxin] Adverse Reaction (Verified 03/04/19 15:06) Nausea ibuprofen Adverse Reaction (Verified 03/04/19 15:06) Other 3 BLEEDING ULCURS morphine Adverse Reaction (Verified 03/04/19 15:06) Other HEADACHE Primary Care Physician: Janel Taylor MD [Primary Care Provider] - Prior records reviewed: Yes Surgical History: appendectomy, cholecystectomy, tonsillectomy, - - Right lower extremity surgery x3 as well as bone grafting, appendectomy, cholecystectomy, gastric bypass, hernia repairs, hip replacement, tonsillectomy. Smoking Status: Current every day smoker - Family History Sibling Family History: Family History (Last Reviewed 03/03/19 @ 17:07 by Hany Sanchez DO) Mother Heart disease Cancer Father Hypertension Arthritis Hyperlipemia Grandmother Breast cancer Heart disease Grandfather Heart disease Family History: Reports: Hypertension Paternal Family History: Family History (Last Reviewed 03/03/19 @ 17:07 by Hany Sanchez DO) Mother Heart disease Cancer Father Hypertension Arthritis Hyperlipemia Grandmother Breast cancer Heart disease Grandfather Heart disease Family History: Reports: High Cholesterol, Heart Disease, Hypertension Maternal Family History: Family History (Last Reviewed 03/03/19 @ 17:07 by Hany Sanchez DO) Mother Heart disease Cancer Father Hypertension Arthritis Hyperlipemia Grandmother Breast cancer Heart disease Grandfather Heart disease Family History: Reports: Cancer, Heart Disease Review of Systems General: Denies: Chills, Fever Eyes: Denies: Visual changes - bilaterally ENT: Denies: Bilateral ear pain Cardiovascular: Denies: Chest pain Respiratory: Denies: Dyspnea, Cough Gastrointestinal: Denies: Abdominal pain, Nausea, Vomiting, Diarrhea Musculoskeletal: Reports: Back pain, Extremity Pain Skin: Denies: Rash Neurological: Denies: Headache Hematologic: Reports: Easy bleeding - Secondary to Eliquis Allergy: Denies: Uticaria Physical Exam Vital Signs/Narrative: Vital Signs Temp Pulse Resp BP Pulse Ox 03/04/19 15:07 97.6 F L 89 17 159/78 H 94 Inital Vital Signs reviewed: Yes General: Well nourished, Well developed Head: Normocephalic ENT: Moist mucous membranes Neck: Supple Cardiovascular: Regular rate, Regular rhythm Respiratory: No distress, CTA bilaterally Abdomen: Soft, Nontender Back: - - Tenderness to palpation of lumbar paraspinal muscles. No abrasions or ecchymosis. Extremities: - - Mild tenderness to palpation over the greater trochanter of the right hip. She is a prior surgical scar with focal tenderness over an area of scar tissue. There is no ecchymosis noted. Normal range of motion. Skin: Normal color Neurological: Alert, Oriented x3 Psychological: Normal affect Diagnostic/Tx/Re-eval - Medical Decision Making I did review the work-up she had yesterday including x-rays of the lumbar spine, pelvis, and hip. She is given 0.5 mg of IM Dilaudid. Oars report shows last narcotic prescription from early January. She will be given a short course of [place] to help with her pain. ED Disposition - Plan for ED Patient: Disposition: Home or Assisted Living Diagnosis: Lumbar strain, Contusion, hip Instructions: Back Sprain/Strain, Hip Contusion Prescriptions: Hydrocodone Bitart/Apap 5-325 [[place] 5MG-325MG] 1 tab PO Q6H PRN PRN 3 Days #10 tab PRN Reason: Pain Transmission Status: Sent to [facility]30 Referrals: Janel Taylor MD [Primary Care Provider] -
[2019-03-04] MEDS: HYDROmorphone 0.5 MG/0.5 ML SYRINGE IM (15:27)
[2019-03-04 16:20] VITALS: BP 141/62; PULSE 74; RESP 15; O2SAT 98
== END 2019-03-04 16:21 | disposition home or self-care (01) ==
PROVIDERS: Emergency Provider Emergency Medicine; Family Provider Family Medicine; PCP Family Medicine
DX: S39.012A Strain of muscle, fascia and tendon of lower back, initial encounter (principal); S70.01XA Contusion of right hip, initial encounter; W19.XXXA Unspecified fall, initial encounter; Y93.9 Activity, unspecified; I25.10 Atherosclerotic heart disease of native coronary artery without angina pectoris; I10 Essential (primary) hypertension; I27.20 Pulmonary hypertension, unspecified; J44.9 Chronic obstructive pulmonary disease, unspecified; E11.9 Type 2 diabetes mellitus without complications; E78.5 Hyperlipidemia, unspecified; F20.9 Schizophrenia, unspecified; M16.11 Unilateral primary osteoarthritis, right hip; G89.29 Other chronic pain; F17.200 Nicotine dependence, unspecified, uncomplicated; E66.01 Morbid (severe) obesity due to excess calories; Z68.42 Body mass index [BMI] 45.0-49.9, adult; Z98.84 Bariatric surgery status; Z79.01 Long term (current) use of anticoagulants; Z79.02 Long term (current) use of antithrombotics/antiplatelets; Z79.4 Long term (current) use of insulin
CPT/HCPCS: 96372; 99284

== ENCOUNTER 2019-03-20 18:28 | Emergency (ER) | payer MEDICARE, SELFPAY ==
[2019-03-20 18:28] VITALS: BP 122/83; PULSE 82; RESP 16; TEMP 36.1; O2SAT 97; BMI 45.1
--- NOTE | 2019-03-20 19:35 | CT_ITS ---
STUDY: CT ABDOMEN AND PELVIS WITH CONTRAST REASON FOR EXAM: Female, 53 years old. Abdominal pain RADIATION DOSAGE (If Supplied By Facility): CTDIvol = ( 17.08 ) mGy, DLP = ( 1288.62 ) mGycm TECHNIQUE: Transaxial images were obtained from the dome of the diaphragm to the symphysis pubis without oral contrast. Oral and amp; IV Gastrografin and amp; 100mL Isovue-300 was administered. Sagittal and coronal images were reconstructed. Individualized dose optimization techniques were used for this CT. COMPARISON: September 28, 2016 FINDINGS: The visualized lung bases are unremarkable. The visualized portions of the heart are within normal limits. Normal liver. Nonvisualization of gallbladder. No significant dilatation of extrahepatic biliary system. Normal spleen. Normal pancreas. Normal bilateral adrenal glands. Normal right kidney. Normal left kidney. Prior surgery of the stomach. Normal small intestine. Normal colon. The appendix is not visualized. Calcified abdominal aorta. Normal inferior vena cava. Normal retroperitoneum. Normal urinary bladder. Normal uterus. Right hip prosthesis. Prior surgery of the anterior abdominal wall. Degenerative vertebral changes. Mild wedge compression of L1. CT/Abdomen/Pelvis WITH Contrast IMPRESSION: No acute abdominal or pelvic pathology. Electronically Signed: Cj Ziegler DO at 21:47 EST Tel [phone], Service support ,
[2019-03-20 20:05] LABS: Absolute Lymphocyte Count 2.03 X10^3/uL (0.83-4.51); Absolute Neutrophil Count 6.9 X10^3/uL (2.0-7.7); Eosinophil# 0.27 X10^3/uL; Eosinophils% 2.6 % (0-5); Hematocrit 43.1 % (37-47); Hemoglobin 14.2 g/dL (12.0-15.0); Lymphocyte # 2.03 X10^3/ul (4.0); Lymphocyte % 19.6 % (19-41); Mean Corp Hgb Conc 32.9 g/dL (32-36); Mean Corpuscular Hgb 30.9 pg (27.0-32.0); Mean Corpuscular Volume 93.7 fL (81-99); Monocyte# 1.06 X10^3/uL; Monocyte% 10.2 % (0-10); NRBC Flagged by Analyzer 0 % (0-5); Neutrophil # 6.86 X10^3/uL (2.7-7.7); Neutrophil % 66.2 % (47-70); Platelet Count 266 K/mm3 (150-450); RBC Distribution Width CV 12.8 % (11.6-14.6); RBC Distribution Width SD 43.4 fl (35.1-43.9); White Blood Count 10.4 K/mm3 (4.4-11.0)
[2019-03-20] MEDS: 0.9% Normal Saline 1,000 ML 125 ML IV (20:05)
[2019-03-20] MEDS: HYDROmorphone 0.5 MG/0.5 ML SYRINGE IV (20:09)
[2019-03-20] MEDS: Ondansetron 4 MG/2 ML Vial IV (20:09)
[2019-03-20 20:21] LABS: ALB/GLOB Ratio 0.9 RATIO (0.9-2.4); AST(SGOT) 21 U/L (15-37); Alanine Aminotransfer ALT/SGPT 39 U/L (13-56); Albumin, Serum 3.3 g/dL (3.2-5.0); Alkaline Phosphatase 164 U/L (45-117); Anion Gap 3 (5-15); BUN 9 mg/dL (7-18); BUN/Creat Ratio 8.9 RATIO (10-20); Chloride 108 mmol/L (98-107); Creatinine, Serum 1.01 mg/dL (0.55-1.02); EST Glomerular Filtration Rate 61 mL/min (>60); Est Glom Filt Rate - Afr Amer 74 mL/min (>60); Estimated Creatinine Clearance 53.29 ml/min; Globulin 3.7 g/dL (2.2-4.2); Glucose 89 mg/dL (74-106); Lipase 51 U/L (73-393); Sodium Level 140 mmol/L (136-145)
[2019-03-20 20:31] LABS: Lactic Acid 1.5 mmol/L (0.4-1.9)
[2019-03-20 21:21] LABS: Bacteria 0 SEEN /hpf (None Seen); Mucous, Urine 0 SEEN /hpf (<or=2+); Red Blood Cells-Urine 0 SEEN /hpf (0-5)
[2019-03-20 21:29] LABS: Color, Urine Yellow (Yellow); Glucose, Dipstick Normal (Normal); Ketone-Dipstick Negative (Negative); Leukocyte Esterase-Dipstick Negative /ul (Negative); Nitrite-Dipstick Negative (Negative); Occult Blood-Urine Negative /ul (Negative); Protein-Dipstick Negative (Negative); Urine Bilirubin Dipstick Negative (Negative); Urine Clarity Clear (Clear); Urine Urobilinogen Normal (Normal)
[2019-03-20 21:35] LABS: Squamous Epithelial Cells - UA 0-5 SEEN /hpf (5-10); White Blood Cells 0-5 SEEN /hpf (0-5)
--- NOTE | 2019-03-20 22:08 | ED.VISSUMM ---
- ER Visit Summary Date of Service: 03/20/19 Chief Complaint: [Abdominal pain] History of Present Illness: The patient is a 53 F [presents to the emergency department with complaint of abdominal pain for 3 days. Patient rates pain a 4 out of 10 currently. Describes it as upper abdomen. Patient feels nauseated and bloated at times. She states that food seems to make it worse at times. Patient does have history of COPD, GERD, type 2 diabetes, hypertension, schizophrenia, pulmonary emboli, spinal stenosis. Patient had prior appendectomy and cholecystectomy. Patient's had gastric bypass.] Physical Examination: [HEENT-PERRLA, EOMI. Cranial nerves II through XII grossly intact. TMs clear. Mucous membranes moist. No adenopathy. Cardiovascular-regular rate and rhythm without murmur or ectopy Lungs-clear to auscultation, chest wall stable without crepitus or subcu emphysema Abdomen-normoactive bowel sounds, soft. Patient has a large midline surgical incision that is well-healed. She is got diffuse tenderness on palpation. No rebound, rigidity, or peritoneal signs. Extremities-intact ?4, normal range of motion, normal pulses, atraumatic] Test Results: [CBC with differential obtained was normal. Chemistries normal. LFTs normal. Urinalysis normal. CT scan with IV and p.o. contrast of the abdomen pelvis showed nothing acute.] Emergency Department Course and Treatment: [She was medicated with 4 mg of morphine and 4 mg Zofran she felt improved.] Treatment Plan: [Patient will be given a prescription for few [place] for pain and advised to follow-up with her primary care physician or general surgeon within next 3 to 5 days. Patient advised to return if worsening pain, fever, vomiting, or condition should worsen anyway.] Disposition: [Discharged home in stable condition] Impression: [Abdominal pain-etiology uncertain] This note was generated with [employer] dictation software. It may contain incorrect words, spelling, and punctuation that were not noted in review of the chart prior to signing ED Disposition - Plan for ED Patient: Referrals: Janel Taylor MD [Primary Care Provider] -
--- NOTE | 2019-03-20 22:10 | ED.DEP ---
ED Disposition - Plan for ED Patient: Instructions: ABDOMINAL PAIN, Unknown Cause, (Female) Prescriptions: Hydrocodone Bitart/Apap 5-325 [[place] 5MG-325MG] 1 tab PO Q4H PRN PRN 2 Days #10 tab PRN Reason: Pain Prescription Printed Referrals: Janel Taylor MD [Primary Care Provider] - 3-5 Days
[2019-03-20 22:24] VITALS: BP 108/46; PULSE 75; RESP 18; RESP 188
== END 2019-03-20 22:25 | disposition home or self-care (01) ==
LOC: ED 19:42
PROVIDERS: Emergency Provider Emergency Medicine; PCP Family Medicine
DX: R10.9 Unspecified abdominal pain (principal); I27.20 Pulmonary hypertension, unspecified; J44.9 Chronic obstructive pulmonary disease, unspecified; E11.9 Type 2 diabetes mellitus without complications; I10 Essential (primary) hypertension; K58.9 Irritable bowel syndrome, unspecified; K21.9 Gastro-esophageal reflux disease without esophagitis; G47.33 Obstructive sleep apnea (adult) (pediatric); F20.9 Schizophrenia, unspecified; Z72.0 Tobacco use; Z79.01 Long term (current) use of anticoagulants; Z79.02 Long term (current) use of antithrombotics/antiplatelets; Z79.4 Long term (current) use of insulin; Z79.899 Other long term (current) drug therapy; Z86.711 Personal history of pulmonary embolism; Z98.84 Bariatric surgery status; Z90.49 Acquired absence of other specified parts of digestive tract
CPT/HCPCS: 74177; 80053; 81001; 83605; 83690; 85025; 96361; 96374; 96375; 99283; J7030; Q9967; J2405

== ENCOUNTER 2019-03-24 21:51 | Inpatient (IN) | payer MEDICARE, SELFPAY ==
[2019-03-24 21:52] VITALS: BP 143/126; PULSE 88; RESP 20; TEMP 36.6; O2SAT 97; BMI 46.2
--- NOTE | 2019-03-24 22:13 | ED.VISSUMM ---
- ER Visit Summary Date of Service: 03/24/19 Chief Complaint: [Abdominal pain] History of Present Illness: The patient is a 53 F [presents to the emergency department with complaint of abdominal pain that started about a week ago. Patient was seen in the emergency department on the of this month for the same complaint and had labs and a CT scan of the abdomen pelvis which were unremarkable. Patient states the pain never really went away. Patient has been nauseated for the last 2 days and one episode of vomiting on arrival to the emergency department. Patient also has had loose stools today x4 however it is not watery. She denies any blood in her stool or black tarry stools. Patient has history of peptic ulcer disease and she is wondering if it is not her ulcer is acting up. Patient also states that she is not checked her blood sugars for a couple of days and she has not been taking her insulin. Patient has history of COPD, coronary artery disease, diabetes, pulmonary emboli, schizophrenia, sepsis, and peptic ulcer disease. Patient's had prior appendectomy as well as cholecystectomy and gastric bypass surgery.] Physical Examination: [HEENT-PERRLA, EOMI. Cranial nerves II through XII grossly intact. TMs clear. Mucous membranes moist. No adenopathy. Cardiovascular-regular rate and rhythm without murmur or ectopy Lungs-clear to auscultation, chest wall stable without crepitus or subcu emphysema Abdomen-normoactive bowel sounds, soft. Patient has tenderness palpation over the epigastric region and left upper quadrant. There is no rebound, rigidity, or perineal signs. No masses palpated. Patient is obese. Extremities-intact ?4, normal range of motion, normal pulses, atraumatic] Test Results: [CBC with differential obtained showed a white count of 8.8, hemoglobin 14, hematocrit 44, placed 238. Chemistries unremarkable. Glucose was 111. LFTs unremarkable other than slightly elevated alkaline phosphatase of 180. EKG obtained arrival shows sinus rhythm with a ventricular rate of 71 bpm with no acute ST segment changes. Troponin is less than 0.015. Lactate was 2.1. Alysis ordered and pending.] Emergency Department Course and Treatment: [IV line established. Patient was started on normal saline. Patient given 10 units of insulin subcu. Patient initially given Dilaudid 0.5 mg IV as well as Zofran 4 mg IV and a GI cocktail and she had good pain improvement with that.] Treatment Plan: [Admit] Disposition: [Admit] Impression: [Abdominal pain-suspect peptic ulcer disease Hyperglycemia-noncompliant with meds] This note was generated with [employer] dictation software. It may contain incorrect words, spelling, and punctuation that were not noted in review of the chart prior to signing ED Disposition - Plan for ED Patient: Referrals: Janel Taylor MD [Primary Care Provider] -
[2019-03-24 22:19] LABS: Absolute Lymphocyte Count 1.54 X10^3/uL (0.83-4.51); Absolute Neutrophil Count 6.2 X10^3/uL (2.0-7.7); Basophil% 1.1 % (0-1); Eosinophil# 0.16 X10^3/uL; Eosinophils% 1.8 % (0-5); Hematocrit 43.7 % (37-47); Hemoglobin 14.1 g/dL (12.0-15.0); Lymphocyte # 1.54 X10^3/ul (4.0); Lymphocyte % 17.5 % (19-41); Mean Corp Hgb Conc 32.3 g/dL (32-36); Mean Platelet Vol. 10.2 fl (6.2-12.0); Monocyte# 0.85 X10^3/uL; Monocyte% 9.6 % (0-10); NRBC Flagged by Analyzer 0 % (0-5); Neutrophil # 6.16 X10^3/uL (2.7-7.7); Neutrophil % 69.9 % (47-70); Platelet Count 238 K/mm3 (150-450); RBC Distribution Width SD 44.1 fl (35.1-43.9); White Blood Count 8.8 K/mm3 (4.4-11.0)
--- NOTE | 2019-03-24 22:22 | EKG12_ITS ---
Test Reason : DYSRHYTHMIA Blood Pressure : / mmHG Vent. Rate : 071 BPM Atrial Rate : 071 BPM P-R Int : 136 ms QRS Dur : 094 ms QT Int : 404 ms P-R-T Axes : -18 015 028 degrees QTc Int : 439 ms Normal sinus rhythm Normal ECG Confirmed by MARYAM TAFOYA, JAZZMINE ([id number]), continuity editor GINNY SIMONS ([id number]) on 03/26/2019 11:30:23 AM Referred By: NATANAEL Confirmed By:JAZZMINE FRANCISCO MD
[2019-03-24] MEDS: HYDROmorphone 1 MG/ML Syringe 0.5 MG IV (22:26)
[2019-03-24] MEDS: 0.9% Normal Saline 1,000 ML 125 ML IV (22:26)
[2019-03-24] MEDS: Ondansetron 4 MG/2 ML Vial IV (22:26)
[2019-03-24] MEDS: Mag Hydrox/Al Hydrox/Simeth 30 ML UDC PO (22:26)
[2019-03-24 22:38] LABS: AST(SGOT) 18 U/L (15-37); Alanine Aminotransfer ALT/SGPT 36 U/L (13-56); Albumin, Serum 3.6 g/dL (3.2-5.0); Alkaline Phosphatase 180 U/L (45-117); Anion Gap 6 (5-15); BUN 7 mg/dL (7-18); BUN/Creat Ratio 6.9 RATIO (10-20); Calcium,Total 9.9 mg/dL (8.5-10.1); Chloride 104 mmol/L (98-107); Creatinine, Serum 1.01 mg/dL (0.55-1.02); EST Glomerular Filtration Rate 61 mL/min (>60); Est Glom Filt Rate - Afr Amer 74 mL/min (>60); Estimated Creatinine Clearance 53.29 ml/min; Globulin 3.7 g/dL (2.2-4.2); Glucose 411 mg/dL (74-106); Lipase 57 U/L (73-393); Potassium 3.8 mmol/L (3.5-5.1); Protein, Total 7.3 g/dL (6.4-8.2); Sodium Level 136 mmol/L (136-145)
[2019-03-24 22:48] LABS: Lactic Acid 2.1 mmol/L (0.4-1.9)
[2019-03-24] MEDS: Insulin Lispro 100 UNIT/ML INSULN.PEN 10 UNIT SC (23:23)
--- NOTE | 2019-03-24 23:47 | HP.PCM_ITS ---
Problem List (1) Intractable abdominal pain Status: Acute (2) Acute viral bronchitis Status: Acute (3) HTN (hypertension) Status: Chronic Qualifiers: Hypertension type: essential hypertension Qualified Code(s): I10 - Essential (primary) hypertension (4) Type 2 diabetes mellitus Status: Chronic Qualifiers: Diabetes mellitus [employer] insulin use: without [employer] use Diabetes mellitus complication status: with other specified complication Qualified Code(s): E11.69 - Type 2 diabetes mellitus with other specified complication (5) Schizophrenia Status: Chronic Qualifiers: Schizophrenia type: unspecified Qualified Code(s): F20.9 - Schizophrenia, unspecified (6) Microcytic anemia Status: Chronic (7) Morbid obesity with BMI of 45.0-49.9, adult Status: Chronic (8) Depression Status: Chronic Qualifiers: Depression Type: unspecified Qualified Code(s): F32.9 - Major depressive disorder, single episode, unspecified (9) Gastroesophageal reflux disease Status: Chronic Qualifiers: Esophagitis presence: with esophagitis Qualified Code(s): K21.0 - Gastro- esophageal reflux disease with esophagitis (10) History of PTCA Status: Chronic (11) Hyperlipidemia Status: Chronic Qualifiers: Hyperlipidemia type: unspecified Qualified Code(s): E78.5 - Hyperlipidemia, unspecified (12) History of peptic ulcer disease Status: Chronic (13) Benign essential hypertension Status: Chronic (14) CAD (coronary artery disease) Status: Chronic Qualifiers: Coronary Disease-Associated Artery/Lesion type: unspecified vessel or lesion type [place] vs. transplanted heart: unspecified whether [place] or transplanted heart Associated angina: angina presence unspecified Qualified Code(s): I25.10 - Atherosclerotic heart disease of [place] coronary artery without angina pectoris (15) RACHEL (obstructive sleep apnea) Status: Chronic Comment: 17/13 cm of water (16) Tobacco abuse Status: Chronic (17) COPD (chronic obstructive pulmonary disease) with emphysema Status: Chronic Qualifiers: Emphysema type: unspecified Qualified Code(s): J43.9 - Emphysema, unspecified History of Present Illness Date of Admission: 03/24/19 Chief Complaint: Abdominal pain The patient is a 53 y/o F w/ PMHx: Tobacco use, Morbid Obesity, RACHEL, GERD w/ Hx peptic ulcer disease, Fe Deficiency anemia, HTN, HLD, Chronic pain syndrome w/ chronic narcotic usage, CAD s/p PCI x 5, Diabetes mellitus type II, Schizophrenia/Anxiety and Depression who presents to the [facility] ED on 03/24/19 with history of ongoing persistent abdominal pain x 1 week noted to have been evaluated several times this month, primarily in the epigastric region, sharp, 10/10 intermittent pain, notes worse with oral intake with evaluations w/ unremarkable labs and recent CT scan of the abdomen pelvis which been unremarkable with complaint that she has had ongoing discomfort, intractable with nausea as well as occasional emesis more severe x 2 days as well as complaint of loose stools x 4 on day of ED presentation. Loose stools do not appear black or tarry. She states that secondary to abdominal discomfort she has not been taking her insulin. In addition she notes recent mild harsh day cough, occasional wheezing with congestion and rhinorrhea x 2-3 days concurrently without fever or chills associated. Work-up in the ED included T 97.9, heart rate 88, BP 143/126, respiratory rate 20, 97% on room air, CBC with WBC 8.8, hemoglobin 14.1, platelet 238 without market left shift evident, BMP with glucose 411, lactic acid mildly elevated 2.1, troponin less than 0.015, lipase 57, unremarkable [place] profile aside alk phos 180, EKG with sinus rhythm with no acute evidence of ischemia. 03/20/2019 CT abdomen pelvis with no acute abdominal or pelvic pathology noted. Past Medical History Past Medical History (Chronic Problems): Chronic Problems (Last Reviewed 01/17/19 @ 14:28 by Rosanna Hampton NP-C) Iron deficiency (Chronic) Stage 2 moderate COPD by GOLD classification (Chronic) HTN (hypertension) (Chronic) Peptic ulcer (Chronic) Epigastric pain (Chronic) Chronic neutrophilia (Chronic) Iron deficiency anemia following bariatric surgery (Chronic) Osteoarthritis (Chronic) Morbid obesity (Chronic) Neutrophilic leukocytosis (Chronic) Type 2 diabetes mellitus (Chronic) Schizophrenia (Chronic) Hip osteoarthritis (Chronic) with chronic pain-right hip Iron deficiency anemia due to dietary causes (Chronic) exact cause of iron def anemia unknown-felt likely secondary to past history gastric bypass- although chronic blood loss etiology a possibility (has never had colonoscopy)-further workup including hemoccult stool is recommended Microcytic anemia (Chronic) Morbid obesity with BMI of 45.0-49.9, adult (Chronic) Pulmonary hypertension (Chronic) Chronic narcotic use (Chronic) Depression (Chronic) Gastroesophageal reflux disease (Chronic) Parathyroid abnormality (Chronic) History of PTCA (Chronic) Vitamin D deficiency (Chronic) Hyperlipidemia (Chronic) History of peptic ulcer disease (Chronic) Thyroid nodule (Chronic) deemed to be benign. Benign essential hypertension (Chronic) CAD (coronary artery disease) (Chronic) RACHEL (obstructive sleep apnea) (Chronic) 17/13 cm of water Spinal stenosis of lumbar region at multiple levels (Chronic) Tobacco abuse (Chronic) COPD (chronic obstructive pulmonary disease) with emphysema (Chronic) Medical History: Medical History (Last Reviewed 01/17/19 @ 14:28 by Rosanna Hampton NP-C) HTN (hypertension) (Chronic) I10 Peptic ulcer (Chronic) K27.9 Bloody stool (Inactive) K92.1 Acute respiratory failure (Acute) J96.00 CAP (community acquired pneumonia) (Acute) J18.9 Epigastric pain (Chronic) R10.13 Chronic neutrophilia (Chronic) D72.828 Iron deficiency anemia following bariatric surgery (Chronic) D50.9 Osteoarthritis (Chronic) M19.90 Chest pain (Inactive) R07.9 Morbid obesity (Chronic) E66.01 Neutrophilic leukocytosis (Chronic) D72.9 Viral gastroenteritis (Inactive) A08.4 Type 2 diabetes mellitus (Chronic) E11.9 Schizophrenia (Chronic) F20.9 Hip osteoarthritis (Chronic) M16.9 with chronic pain-right hip Iron deficiency anemia due to dietary causes (Chronic) D50.8 exact cause of iron def anemia unknown-felt likely secondary to past history gastric bypass- although chronic blood loss etiology a possibility (has never had colonoscopy)-further workup including hemoccult stool is recommended Microcytic anemia (Chronic) D50.9 Morbid obesity with BMI of 45.0-49.9, adult (Chronic) E66.01, Z68.42 Pulmonary hypertension (Chronic) I27.2 Chronic narcotic use (Chronic) F11.90 Depression (Chronic) F32.9 Gastroesophageal reflux disease (Chronic) K21.9 Parathyroid abnormality (Chronic) E21.5 Vitamin D deficiency (Chronic) E55.9 Hyperlipidemia (Chronic) E78.5 History of peptic ulcer disease (Chronic) Z87.11 Thyroid nodule (Chronic) E04.1 deemed to be benign. Benign essential hypertension (Chronic) I10 CAD (coronary artery disease) (Chronic) I25.10 RACHEL (obstructive sleep apnea) (Chronic) G47.33 17/13 cm of water Spinal stenosis of lumbar region at multiple levels (Chronic) M48.06 Tobacco abuse (Chronic) Z72.0 COPD (chronic obstructive pulmonary disease) with emphysema (Chronic) J43.9 History of pulmonary embolism Z86.711 Allergies amoxicillin Allergy (Verified 03/24/19 21:55) Itching erythromycin base Allergy (Verified 03/24/19 21:55) Unknown methadone Allergy (Verified 03/24/19 21:55) Itching metolazone Allergy (Verified 03/24/19 21:55) Unknown Penicillins Allergy (Verified 03/24/19 21:55) Hives Sulfa (Sulfonamide Antibiotics) Allergy (Verified 03/24/19 21:55) Hives clarithromycin [From Biaxin] Adverse Reaction (Verified 03/24/19 21:55) Nausea ibuprofen Adverse Reaction (Verified 03/24/19 21:55) Other 3 BLEEDING ULCURS morphine Adverse Reaction (Verified 03/24/19 21:55) Other HEADACHE Home Medications: Ambulatory Orders Medication Instructions Recorded Atorvastatin Calcium [Lipitor] 80 mg PO QHS 08/22/15 Clopidogrel Bisulfate [Plavix] 75 mg PO QHS 08/22/15 Metoprolol(XL)Succ [Toprol Xl 50 mg PO DAILY 08/22/15 (Beta Trino)] Nitroglycerin 0.4 mg SL PRN PRN 11/08/16 Duloxetine Hcl [Cymbalta] 120 mg PO DAILY 01/16/17 amlodipine 10 mg tablet 10 mg PO BID tab 05/02/17 potassium chloride 10 mEq 10 meq PO DAILY #60 tab 06/16/17 tablet,extended release(part/cryst) Omeprazole 40 mg PO DAILY 03/08/18 Pregabalin [Lyrica] 75 mg PO TID 03/08/18 Risperidone 4 mg PO QHS 03/08/18 Tizanidine HCl 6 mg PO TID PRN PRN 03/08/18 traZODone [Desyrel] 200 mg PO QHS 03/08/18 Buspirone HCl 30 mg PO BID 04/13/18 fluticasone propionate 230 2 puff INHALATION BID #12 g 08/09/18 mcg-salmeterol 21 mcg/actuation HFA inhaler Sucralfate [Carafate] 1 gm PO 4X/DAY 08/16/18 Albuterol Aerosols [Ventolin 2.5 mg INHALATION Q4H PRN 08/19/18 Aerosols] albuterol sulfate 90 mcg/actuation 2 puff INHALATION Q4H PRN PRN #18 g 10/31/18 aerosol inhaler montelukast 10 mg tablet 10 mg PO QHS #30 tab 10/31/18 Acetaminophen [Tylenol] 500 mg PO Q6H PRN PRN 11/20/18 Furosemide [Lasix] 20 mg PO DAILY 11/20/18 Lisinopril 20 mg PO QHS 11/20/18 Mirabegron [Myrbetriq] 25 mg PO DAILY 11/20/18 Apixaban [Eliquis] 5 mg PO BID #74 tab 11/22/18 Insulin Aspart [Novolog Flexpen 15 units SUBCUT TIDCM 01/10/19 ([facility])] tiotropium bromide 2.5 2 puff INHALATION DAILY #1 device 02/20/19 mcg/actuation mist for inhalation Insulin Glargine [Lantus ([facility])] 30 units SUBCUT QHS 03/04/19 Surgical History: Surgical History (Last Reviewed 01/17/19 @ 14:28 by Rosanna Hampton NP-C) History of PTCA (Chronic) Z98.61 History of appendectomy Z98.890, Z90.49 History of carpal tunnel surgery of left wrist Z98.890 History of cholecystectomy Z98.890, Z90.49 History of gastric bypass Z98.84 History of tonsillectomy Z98.890, Z90.89 history of carpal tunnel release left wrist 2018 history of right hip surgery Surgical History: appendectomy, cholecystectomy, tonsillectomy, - - Right lower extremity surgery x3 as well as bone grafting, appendectomy, cholecystectomy, gastric bypass, hernia repairs, hip replacement, tonsillectomy. Psychiatric History: Anxiety, Depression, Schizophrenia PET CARE ASSOCIATE History: No pertinent PET CARE ASSOCIATE history Lives: Alone Smoking Status: Current every day smoker - Patient currently smoking 2 pack/day cigarette tobacco usage. Tobacco Use: Cigarettes Alcohol: None Drugs: None - *Family History Sibling Family History: Family History (Last Reviewed 03/03/19 @ 17:07 by Hany Sanchez DO) Mother Heart disease Cancer Father Hypertension Arthritis Hyperlipemia Grandmother Breast cancer Heart disease Grandfather Heart disease History Items: Hypertension Paternal Family History: Family History (Last Reviewed 03/03/19 @ 17:07 by Hany Sanchez DO) Mother Heart disease Cancer Father Hypertension Arthritis Hyperlipemia Grandmother Breast cancer Heart disease Grandfather Heart disease History Items: High Cholesterol, Heart Disease, Hypertension Maternal Family History: Family History (Last Reviewed 03/03/19 @ 17:07 by Hany Sanchez DO) Mother Heart disease Cancer Father Hypertension Arthritis Hyperlipemia Grandmother Breast cancer Heart disease Grandfather Heart disease History Items: Cancer, Heart Disease Review of Systems Constitutional: Reports: Anorexia, Malaise, Weakness, Fatigue. Denies: Chills, Fever, Weight Change HEENT: Reports: Nasal Congestion, Sinus Congestion, Sinus Drainage, Sore Throat. Denies: Head Aches Cardiovascular: Denies: Chest Pain, Palpitations Respiratory: Reports: Cough, Shortness of Breath, Shortness of breath at rest, Shortness of breath upon exertion. Denies: Sputum production Gastrointestinal: Reports: Abdominal Pain, Diarrhea, Nausea, Vomiting Genitourinary: Denies: Dysuria Musculoskeletal: Reports: Back Pain, Joint Pain. Denies: Joint Tenderness Skin: Denies: Rash, Wounds Neurological: Denies: Numbness, Tingling, Focal weakness Psychiatric: Reports: Anxiety, Depression. Denies: Homicidal Ideations, Suicidal Ideations Hematologic/ Lymphatic: Reports: Anemia, Easy Bruising, Easy Bleeding VTE Information - Inpt Only VTE Present on Admission: No VTE Mechan Device Prophylaxis: SCD's VTE Pharm Prophylaxis ordered?: No Reason prophylaxis not ordered:: Medical Contraindication Patient Problems: Active and Suspected Problems (Last Reviewed 01/17/19 @ 14:28 by Rosanna Hampton NP-C) Acute viral bronchitis (Acute) Intractable abdominal pain (Acute) Subjective: Patient seated upright in the bed, fatigued and ill-appearing. Objective: Physical Examination: General: awake, alert, oriented x 3 and cooperative, seated upright in the ED bed, fatigued and ill-appearing. Skin: normal color, turgor, no icterus, cyanosis. HEENT: AT/NC, EOMI, PERRLA, injected sclera bilaterally, dry MM, posterior OP erythema without exudate, mild irritation of external nares, no carotid bruits or JVD noted; however, thickened neck makes examination difficult. Lungs: Diminished breath sounds bilaterally, greater bases, occasional coughing during examination, no market rhonchi or wheezing noted. Heart: regular rate and rhythm; no gallop, rub audible. Abdomen: soft, morbidly obese, discomfort to palpation of the epigastric region with voluntary guarding, difficult to assess distention secondary to habitus, distant bowel sounds, unable to discern HSM secondary to pain and habitus. Extremities: no cyanosis, clubbing, or edema. Neurological: patient awake, alert, oriented x 3; cognitive function intact; pupils equally reactive to light and accomodation; cranial nerves II-XII grossly normal, moving all 4 extremities, no focal deficits, strength severely global decrease secondary to acute presentation. Psychiatric: affect appears fatigued, ill-appearing, no acute evidence of depressive or anxiety feelings. - Physical Exam Vitals/I&O's: Vital Signs Temp Pulse Resp BP Pulse Ox 97.9 F 88 20 H 143/126 H 97 03/24/19 21:52 03/24/19 21:52 03/24/19 21:52 03/24/19 21:52 03/24/19 21:52 Oxygen Delivery Method Room Air Weight: 260 lb 12.909 oz Body Mass Index (BMI) 46.2 Laboratory Results 03/24/19 22:10: WBC 8.8, RBC 4.70, Hgb 14.1, Hct 43.7, MCV 93.0, MCH 30.0, MCHC 32.3, RDW Std Deviation 44.1 H, RDW Coeff of [place] 13.0, Plt Count 238, MPV 10.2, Immature Gran % (Auto) 0.100, Neut % (Auto) 69.9, Lymph % (Auto) 17.5 L, [place] % (Auto) 9.6, Eos % (Auto) 1.8, Baso % (Auto) 1.1 H, Absolute Neuts (auto) 6.2, Absolute Lymphs (auto) 1.54, Nucleated RBC % 0 03/24/19 22:10: Sodium 136, Potassium 3.8, Chloride 104, Carbon Dioxide 26.0, Anion Gap 6, BUN 7, Creatinine 1.01, Estim Creat Clear Calc 53.29, Est GFR (MDRD) Af Amer 74, Est GFR (MDRD) Non-Af 61, BUN/Creatinine Ratio 6.9 L, Glucose 411 H, Calcium 9.9, Total Bilirubin 0.30, AST 18, ALT 36, Alkaline Phosphatase 180 H, Total Protein 7.3, Albumin 3.6, Globulin 3.7, Albumin/Globulin Ratio 1.0, Lipase 57 L 03/24/19 22:10: Lactic Acid 2.1 H* 03/24/19 22:10: Troponin I < 0.015 Current Medications Sodium Chloride () 1,000 mls @ 125 mls/hr IV .Q8H FORREST Last Admin: 03/24/19 22:26 Dose: 125 mls/hr Documented by: Assessment/Plan All Active Problems (Last Reviewed 01/17/19 @ 14:28 by Rosanna Hampton NP-C) Acute viral bronchitis (Acute) Intractable abdominal pain (Acute) Acute and chronic respiratory failure with hypoxia (Acute) COPD exacerbation (Acute) Pneumonia (Resolved) Sepsis (Resolved) Cataract (Acute) Encephalopathy (Acute) Hypoxia (Acute) Hyperglycemia (Acute) Acute respiratory failure (Acute) CAP (community acquired pneumonia) (Acute) Diarrhea (Resolved) Hypokalemia (Resolved) The patient is a 53 y/o F w/ PMHx: Tobacco use, Morbid Obesity, RACHEL, GERD w/ Hx peptic ulcer disease, Fe Deficiency anemia, HTN, HLD, Chronic pain syndrome w/ chronic narcotic usage, CAD s/p PCI x 5, Diabetes mellitus type II, Schizophrenia/Anxiety and Depression who presents to the [facility] ED on 03/24/19 with history of ongoing persistent abdominal pain x 1 week noted to have been evaluated several times this month, primarily in the epigastric region, sharp, 10/10 intermittent pain, notes worse with oral intake with evaluations w/ unremarkable labs and recent CT scan of the abdomen pelvis which been un remarkable with complaint that she has had ongoing discomfort, intractable with nausea as well as occasional emesis more severe x 2 1. Intractable abdominal pain, nausea, emesis suspected secondary to Peptic ulcer disease, possible worsened status recently secondary to #2: Will admit to the medical surgical floor, maintain on IV fluids, n.p.o. status except sips of water with medications, initiate IV Protonix, general surgery consultation, PRN oral and IV pain regimen, from discussion would plan endoscopy if surgery amenable. If recurrent loose stools may consider stool culture and C. difficile assay assessment, suspect secondary to #2. 2. Acute bronchitis/Viral Syndrome complicated by underlying Chronic COPD: Will obtain CXR, maintain on ATC duonebs, PRN albuterol, HOB, IS parameters, obtain respiratory viral panel and sputum cultures. 3. History of pulmonary embolism: Temporarily holding patient Eliquis for planned endoscopy with potential biopsy needs, resume once appropriate. 4. CAD: Status post PCI x5, remotely, holding patient Eliquis, Plavix, will continue patient home statin, lisinopril, metoprolol regimen. 5. Chronic pain syndrome: We will continue patient home Lyrica, tizanidine regimen and given acute presentation as noted PRN oral and IV medications additionally. 6. Hypertension: Continue home regimen including amlodipine, Lasix, lisinopril, metoprolol, PRN hydralazine. 7. Hyperlipidemia: Continue home statin regimen. 8. Iron deficiency anemia: Admission hemoglobin 14.1, currently per list not on iron supplementation, pending endoscopy as noted above. 9. Morbid Obesity: Weight loss and lifestyle changes encouraged, nutrition consulted. 10. Tobacco Abuse: Encouraged cessation, inpatient consultation per RT, NR if desired. 11. Diabetes mellitus type II: Hold oral home regimen, continue home insulin regimen, NPO status, accu checks w/ ISS. 12. Schizophrenia/anxiety and depression: We will continue patient home BuSpar, Cymbalta, Risperdal and trazodone regimen. 13. RACHEL: CPAP nightly. 14. DVT prophylaxis: SCDs, defer chemoprophylaxis given acute presentation with peptic ulcer disease. Code Visit Inpatient E&M: 55569 Init Hosp L3
[2019-03-24 23:51] VITALS: BP 121/68; PULSE 69; RESP 18; O2SAT 93
[2019-03-25] VITALS (12 sets, daily range): BP systolic 108–125; BP diastolic 56–76; PULSE 59–80; RESP 12–23; TEMP 36.6–37.3; O2SAT 94–99; BMI 44.9
[2019-03-25] MEDS: HYDROmorphone 0.5 MG/0.5 ML SYRINGE IV ×2 (00:33→04:35)
[2019-03-25 00:41] LABS: Bacteria 0 SEEN /hpf (None Seen); Mucous, Urine 0 SEEN /hpf (<or=2+); Red Blood Cells-Urine 0 SEEN /hpf (0-5); White Blood Cells 0 SEEN /hpf (0-5)
[2019-03-25 00:42] LABS: Color, Urine Yellow (Yellow); Glucose, Dipstick 1000 mg/dl (Normal); Ketone-Dipstick Negative (Negative); Leukocyte Esterase-Dipstick Negative /ul (Negative); Nitrite-Dipstick Negative (Negative); Occult Blood-Urine Negative /ul (Negative); Protein-Dipstick Negative (Negative); Urine Bilirubin Dipstick Negative (Negative); Urine Clarity Clear (Clear); Urine Urobilinogen Normal (Normal)
[2019-03-25 00:50] LABS: Squamous Epithelial Cells - UA 0-5 SEEN /hpf (5-10)
[2019-03-25 01:17] LABS: International Normalized Ratio 1.1; Prothrombin Time (Protime)PT. 14.1 SECONDS (11.7-14.9)
[2019-03-25 01:18] LABS: Partial Thromboplast Time 31.6 Seconds (24.1-36.2)
[2019-03-25] MEDS: tiZANidine HCl 2 MG Tablet 6 MG PO ×3 (01:38→20:33)
[2019-03-25] MEDS: guaiFENesin 10 ML UDC (200MG/10ML) 20 ML PO ×4 (01:38→20:34)
[2019-03-25] MEDS: Insulin Lispro 100 UNIT/ML INSULN.PEN SC ×3 (01:39→11:39)
[2019-03-25 01:50] LABS: Bedside Glucose 153 mg/dL (70-110)
[2019-03-25 02:15] LABS: Reflex Lactate? Y
[2019-03-25] MEDS: DiphenhydrAMINE 50 MG/ML Syringe 25 MG IV (02:29)
[2019-03-25] MEDS: Ipratropium/Albuterol Sulfate 3 ML AMPUL.NEB INHALATION ×4 (02:45→18:48)
[2019-03-25 02:49] LABS: Absolute Lymphocyte Count 1.69 X10^3/uL (0.83-4.51); Absolute Neutrophil Count 7.2 X10^3/uL (2.0-7.7); Basophil# 0.08 X10^3/uL; Basophil% 0.8 % (0-1); Eosinophil# 0.18 X10^3/uL; Eosinophils% 1.8 % (0-5); Hematocrit 39.9 % (37-47); Hemoglobin 12.9 g/dL (12.0-15.0); Lymphocyte # 1.69 X10^3/ul (4.0); Lymphocyte % 16.6 % (19-41); Mean Corp Hgb Conc 32.3 g/dL (32-36); Mean Corpuscular Hgb 30.3 pg (27.0-32.0); Mean Corpuscular Volume 93.7 fL (81-99); Mean Platelet Vol. 10.2 fl (6.2-12.0); Monocyte% 9.8 % (0-10); NRBC Flagged by Analyzer 0 % (0-5); Neutrophil # 7.22 X10^3/uL (2.7-7.7); Neutrophil % 70.7 % (47-70); Platelet Count 228 K/mm3 (150-450); RBC Distribution Width CV 13.2 % (11.6-14.6); RBC Distribution Width SD 44.6 fl (35.1-43.9); Red Blood Count 4.26 M/mm3 (4.2-5.4); White Blood Count 10.2 K/mm3 (4.4-11.0)
[2019-03-25 02:58] LABS: Lactic Acid 1.4 mmol/L (0.4-1.9)
[2019-03-25 03:21] LABS: Anion Gap 2 (5-15); BUN 8 mg/dL (7-18); BUN/Creat Ratio 9.2 RATIO (10-20); Calcium,Total 9.7 mg/dL (8.5-10.1); Chloride 110 mmol/L (98-107); Creatinine, Serum 0.87 mg/dL (0.55-1.02); EST Glomerular Filtration Rate 72 mL/min (>60); Est Glom Filt Rate - Afr Amer 87 mL/min (>60); Estimated Creatinine Clearance 61.86 ml/min; Glucose 114 mg/dL (74-106); Potassium 3.6 mmol/L (3.5-5.1); Sodium Level 141 mmol/L (136-145)
--- NOTE | 2019-03-25 05:55 | RAD_ITS ---
STUDY: X-RAY CHEST REASON FOR EXAM: Female, 53 years old. Cough, sob. PT ST - NO IMPROVEMENT TECHNIQUE: PA and lateral views of the chest. COMPARISON: Comparison is made with prior study November 23, 2018. FINDINGS: Since prior study, there has been a mild degree of increased markings at the lung bases suggestive of atelectasis and/or early infiltrate. Follow-up is recommended. There is no demonstrated pleural abnormality. There is borderline cardiomegaly. Normal mediastinum and alden. Normal visualized pulmonary arteries. There is atherosclerotic calcification of the aortic arch with tortuosity. There are diffuse degenerative changes of the visualized thoracic spine. Dextroscoliosis of the lumbar spine. Normal visualized ribs, clavicles, and shoulders. There is no demonstrated abnormality of the visualized soft tissue structures of the upper abdomen. RAD/Chest PA and Lateral IMPRESSION: Increased markings at the lung bases suggestive of bibasilar atelectasis and/or early infiltrates. Follow-up is recommended. Electronically Signed: Manuelito Silva, at 9:54 EST , Service support ,
[2019-03-25] MEDS: Sucralfate 1 GM Tablet PO ×4 (06:16→22:47)
[2019-03-25] MEDS: Pregabalin 75 MG Capsule PO ×3 (06:17→22:57)
[2019-03-25] MEDS: 0.9% Normal Saline 1,000 ML 125 ML IV ×2 (06:29→17:35)
[2019-03-25 06:30] LABS: Bedside Glucose 168 mg/dL (70-110)
--- NOTE | 2019-03-25 08:25 | PCM.CONS.GEN ---
Problem List (1) Marginal ulcer Status: Acute Reason for Consult Date of Consultation: 03/25/19 History of Present Illness: The patient is a 53 year old F with a history of marginal ulcer who presents with epigastric pain. She says the pain is been going on for a week and it is hurting her severely. She continues to heavily smoke. She is not having any nausea or vomiting. Pain is in epigastric region. 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 Iron deficiency anemia due to dietary causes (Chronic) exact cause of iron def anemia unknown-felt likely secondary to past history gastric bypass- although chronic blood loss etiology a possibility (has never had colonoscopy)-further workup including hemoccult stool is recommended Microcytic anemia (Chronic) Morbid obesity with BMI of 45.0-49.9, adult (Chronic) Pulmonary hypertension (Chronic) Chronic narcotic use (Chronic) Depression (Chronic) Gastroesophageal reflux disease (Chronic) Parathyroid abnormality (Chronic) History of PTCA (Chronic) Vitamin D deficiency (Chronic) Hyperlipidemia (Chronic) History of peptic ulcer disease (Chronic) Thyroid nodule (Chronic) deemed to be benign. Benign essential hypertension (Chronic) CAD (coronary artery disease) (Chronic) RACHEL (obstructive sleep apnea) (Chronic) 17/13 cm of water Spinal stenosis of lumbar region at multiple levels (Chronic) Tobacco abuse (Chronic) COPD (chronic obstructive pulmonary disease) with emphysema (Chronic) Medical History: Medical History (Last Reviewed 01/17/19 @ 14:28 by Rosanna Hampton NP-C) HTN (hypertension) (Chronic) I10 Peptic ulcer (Chronic) K27.9 Bloody stool (Inactive) K92.1 Acute respiratory failure (Acute) J96.00 CAP (community acquired pneumonia) (Acute) J18.9 Epigastric pain (Chronic) R10.13 Chronic neutrophilia (Chronic) D72.828 Iron deficiency anemia following bariatric surgery (Chronic) D50.9 Osteoarthritis (Chronic) M19.90 Chest pain (Inactive) R07.9 Morbid obesity (Chronic) E66.01 Neutrophilic leukocytosis (Chronic) D72.9 Viral gastroenteritis (Inactive) A08.4 Type 2 diabetes mellitus (Chronic) E11.9 Schizophrenia (Chronic) F20.9 Hip osteoarthritis (Chronic) M16.9 with chronic pain-right hip Iron deficiency anemia due to dietary causes (Chronic) D50.8 exact cause of iron def anemia unknown-felt likely secondary to past history gastric bypass- although chronic blood loss etiology a possibility (has never had colonoscopy)-further workup including hemoccult stool is recommended Microcytic anemia (Chronic) D50.9 Morbid obesity with BMI of 45.0-49.9, adult (Chronic) E66.01, Z68.42 Pulmonary hypertension (Chronic) I27.2 Chronic narcotic use (Chronic) F11.90 Depression (Chronic) F32.9 Gastroesophageal reflux disease (Chronic) K21.9 Parathyroid abnormality (Chronic) E21.5 Vitamin D deficiency (Chronic) E55.9 Hyperlipidemia (Chronic) E78.5 History of peptic ulcer disease (Chronic) Z87.11 Thyroid nodule (Chronic) E04.1 deemed to be benign. Benign essential hypertension (Chronic) I10 CAD (coronary artery disease) (Chronic) I25.10 RACHEL (obstructive sleep apnea) (Chronic) G47.33 17/13 cm of water Spinal stenosis of lumbar region at multiple levels (Chronic) M48.06 Tobacco abuse (Chronic) Z72.0 COPD (chronic obstructive pulmonary disease) with emphysema (Chronic) J43.9 History of pulmonary embolism Z86.711 Allergies amoxicillin Allergy (Verified 03/24/19 21:55) Itching erythromycin base Allergy (Verified 03/24/19 21:55) Unknown methadone Allergy (Verified 03/24/19 21:55) Itching metolazone Allergy (Verified 03/24/19 21:55) Unknown Penicillins Allergy (Verified 03/24/19 21:55) Hives Sulfa (Sulfonamide Antibiotics) Allergy (Verified 03/24/19 21:55) Hives clarithromycin [From Biaxin] Adverse Reaction (Verified 03/24/19 21:55) Nausea ibuprofen Adverse Reaction (Verified 03/24/19 21:55) Other 3 BLEEDING ULCURS morphine Adverse Reaction (Verified 03/24/19 21:55) Other HEADACHE Home Medications: Ambulatory Orders Medication Instructions Recorded Atorvastatin Calcium [Lipitor] 80 mg PO QHS 08/22/15 Clopidogrel Bisulfate [Plavix] 75 mg PO QHS 08/22/15 Metoprolol(XL)Succ [Toprol Xl 50 mg PO DAILY 08/22/15 (Beta Trino)] Nitroglycerin 0.4 mg SL PRN PRN 11/08/16 Duloxetine Hcl [Cymbalta] 120 mg PO DAILY 01/16/17 amlodipine 10 mg tablet 10 mg PO BID tab 05/02/17 potassium chloride 10 mEq 10 meq PO DAILY #60 tab 06/16/17 tablet,extended release(part/cryst) Omeprazole 40 mg PO DAILY 03/08/18 Pregabalin [Lyrica] 75 mg PO TID 03/08/18 Risperidone 4 mg PO QHS 03/08/18 Tizanidine HCl 6 mg PO TID PRN PRN 03/08/18 traZODone [Desyrel] 200 mg PO QHS 03/08/18 Buspirone HCl 30 mg PO BID 04/13/18 fluticasone propionate 230 2 puff INHALATION BID #12 g 08/09/18 mcg-salmeterol 21 mcg/actuation HFA inhaler Sucralfate [Carafate] 1 gm PO 4X/DAY 08/16/18 Albuterol Aerosols [Ventolin 2.5 mg INHALATION Q4H PRN 08/19/18 Aerosols] albuterol sulfate 90 mcg/actuation 2 puff INHALATION Q4H PRN PRN #18 g 10/31/18 aerosol inhaler montelukast 10 mg tablet 10 mg PO QHS #30 tab 10/31/18 Acetaminophen [Tylenol] 500 mg PO Q6H PRN PRN 11/20/18 Furosemide [Lasix] 20 mg PO DAILY 11/20/18 Lisinopril 20 mg PO QHS 11/20/18 Mirabegron [Myrbetriq] 25 mg PO DAILY 11/20/18 Apixaban [Eliquis] 5 mg PO BID #74 tab 11/22/18 Insulin Aspart [Novolog Flexpen 15 units SUBCUT TIDCM 01/10/19 ([facility])] tiotropium bromide 2.5 2 puff INHALATION DAILY #1 device 02/20/19 mcg/actuation mist for inhalation Insulin Glargine [Lantus ([facility])] 30 units SUBCUT QHS 03/04/19 Surgical History: Surgical History (Last Reviewed 01/17/19 @ 14:28 by ERROL Cooper) History of PTCA (Chronic) Z98.61 History of appendectomy Z98.890, Z90.49 History of carpal tunnel surgery of left wrist Z98.890 History of cholecystectomy Z98.890, Z90.49 History of gastric bypass Z98.84 History of tonsillectomy Z98.890, Z90.89 history of carpal tunnel release left wrist 2018 history of right hip surgery Surgical History: appendectomy, cholecystectomy, tonsillectomy, - - Right lower extremity surgery x3 as well as bone grafting, appendectomy, cholecystectomy, gastric bypass, hernia repairs, hip replacement, tonsillectomy. 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 Tobacco Use: Cigarettes Alcohol: None Drugs: None - *Family History Sibling Family History: Family History (Last Reviewed 03/03/19 @ 17:07 by Hany Sanchez DO) Mother Heart disease Cancer Father Hypertension Arthritis Hyperlipemia Grandmother Breast cancer Heart disease Grandfather Heart disease History Items: Hypertension Maternal Family History: Family History (Last Reviewed 03/03/19 @ 17:07 by Hany Sanchez DO) Mother Heart disease Cancer Father Hypertension Arthritis Hyperlipemia Grandmother Breast cancer Heart disease Grandfather Heart disease History Items: Cancer, Heart Disease Paternal Family History: Family History (Last Reviewed 03/03/19 @ 17:07 by Hany Sanchez DO) Mother Heart disease Cancer Father Hypertension Arthritis Hyperlipemia Grandmother Breast cancer Heart disease Grandfather Heart disease History Items: High Cholesterol, Heart Disease, Hypertension Review of Systems Constitutional: Denies: Anorexia, Fever Cardiovascular: Denies: Chest Pain Respiratory: Denies: Cough Gastrointestinal: Reports: Abdominal Pain Genitourinary: Denies: Dysuria Patient Problems: Active and Suspected Problems (Last Reviewed 01/17/19 @ 14:28 by Rosanna Hampton, PROCESS TRAINER-C) Acute viral bronchitis (Acute) Intractable abdominal pain (Acute) Marginal ulcer (Acute) - Physical Exam Vitals/I&O's: Vital Signs Temp Pulse Resp BP Pulse Ox 97.9 F 65 20 H 108/56 L 97 03/25/19 04:37 03/25/19 04:37 03/25/19 04:37 03/25/19 04:37 03/25/19 04:37 Oxygen Flow Rate (L/min) 4 Oxygen Delivery Method Nasal Cannula Weight: 253 lb 8.505 oz Body Mass Index (BMI) 44.9 Intake and Output for Last 24 Hours 03/23/19 03/24/19 03/25/19 23:59 23:59 23:59 Intake Total 110 / 110 1000 / 1000 Balance 110 / 110 1000 / 1000 General: Alert, Oriented x3 Lungs: Normal air movement Abdomen: Soft, Non-Distended, Obese Musculoskeletal: No Tenderness to Palpation of Joints or Extremities Lymphatic: No Cervical, Supraclavicular, or Inguinal Adenopathy Psych/Mental Status: Appropriate Laboratory Results 03/24/19 22:10: WBC 8.8, RBC 4.70, Hgb 14.1, Hct 43.7, MCV 93.0, MCH 30.0, MCHC 32.3, RDW Std Deviation 44.1 H, RDW Coeff of Kaycee 13.0, Plt Count 238, MPV 10.2, Immature Gran % (Auto) 0.100, Neut % (Auto) 69.9, Lymph % (Auto) 17.5 L, [place] % (Auto) 9.6, Eos % (Auto) 1.8, Baso % (Auto) 1.1 H, Absolute Neuts (auto) 6.2, Absolute Lymphs (auto) 1.54, Nucleated RBC % 0 03/24/19 22:10: Sodium 136, Potassium 3.8, Chloride 104, Carbon Dioxide 26.0, Anion Gap 6, BUN 7, Creatinine 1.01, Estim Creat Clear Calc 53.29, Est GFR (MDRD) Af Amer 74, Est GFR (MDRD) Non-Af 61, BUN/Creatinine Ratio 6.9 L, Glucose 411 H, Calcium 9.9, Total Bilirubin 0.30, AST 18, ALT 36, Alkaline Phosphatase 180 H, Total Protein 7.3, Albumin 3.6, Globulin 3.7, Albumin/Globulin Ratio 1.0, Lipase 57 L 03/24/19 22:10: Lactic Acid 2.1 H* 03/24/19 22:10: Troponin I < 0.015 03/24/19 22:10: PT 14.1, INR 1.1, APTT 31.6 03/25/19 00:22: Urine Color Yellow, Urine Clarity Clear, Urine pH 6.0, Ur Specific [place] 1.010, Urine Protein Negative, Urine Glucose (UA) 1000 H, Urine Ketones Negative, Urine Occult Blood Negative, Urine Nitrite Negative, Urine Bilirubin Negative, Urine Urobilinogen Normal, Ur Leukocyte Esterase Negative, Urine RBC 0 SEEN, Urine WBC 0 SEEN, Ur Squamous Epith Cells 0-5 SEEN, Urine Bacteria 0 SEEN, Urine Mucus 0 SEEN 03/25/19 01:37: POC Glucose 153 H 03/25/19 02:20: WBC 10.2, RBC 4.26, Hgb 12.9, Hct 39.9, MCV 93.7, MCH 30.3, MCHC 32.3, RDW Std Deviation 44.6 H, RDW Coeff of Kaycee 13.2, Plt Count 228, MPV 10.2, Immature Gran % (Auto) 0.300, Neut % (Auto) 70.7 H, Lymph % (Auto) 16.6 L, [place] % (Auto) 9.8, Eos % (Auto) 1.8, Baso % (Auto) 0.8, Absolute Neuts (auto) 7.2, Absolute Lymphs (auto) 1.69, Nucleated RBC % 0 03/25/19 02:20: Sodium 141, Potassium 3.6, Chloride 110 H, Carbon Dioxide 29.0, Anion Gap 2 L, BUN 8, Creatinine 0.87, Estim Creat Clear Calc 61.86, Est GFR (MDRD) Af Amer 87, Est GFR (MDRD) Non-Af 72, BUN/Creatinine Ratio 9.2 L, Glucose 114 H, Calcium 9.7 03/25/19 02:20: Lactic Acid 1.4 03/25/19 06:21: POC Glucose 168 H Current Medications Acetaminophen (Tylenol) 650 mg PO Q6H PRN PRN PRN Reason: Pain Score 1-3/Temp > 100.7 F Albuterol/Ipratropium (Duoneb) 3 ml INHALATION Q6HWA.RT [facility] Last Admin: 03/25/19 07:16 Dose: 3 ml Documented by: Amlodipine Besylate (Norvasc) 10 mg PO BID [facility] Atorvastatin Calcium (Lipitor) 80 mg PO QHS [facility] Buspirone HCl (Buspar) 30 mg PO BID [facility] Diphenhydramine HCl (Benadryl) 25 mg IV Q6H PRN PRN PRN Reason: ITCHING Last Admin: 03/25/19 02:29 Dose: 25 mg Documented by: Duloxetine HCl (Cymbalta) 120 mg PO DAILY [facility] Furosemide (Lasix) 20 mg PO DAILY [facility] Glucagon () 1 mg IM .X1 PRN PRN Reason: Hypoglycemia Guaifenesin (Robitussin) 20 ml PO Q4H PRN PRN PRN Reason: COUGH Last Admin: 03/25/19 06:16 Dose: 20 ml Documented by: Hydromorphone HCl (Dilaudid Inj) 0.5 mg IV Q4H PRN PRN PRN Reason: Pain Score 6-10/10 Last Admin: 03/25/19 04:35 Dose: 0.5 mg Documented by: Sodium Chloride () 1,000 mls @ 125 mls/hr IV .Q8H [facility] Last Admin: 03/25/19 06:29 Dose: 125 mls/hr Documented by: Pantoprazole Sodium 40 mg/ (Sodium Chloride) 110 mls @ 330 mls/hr IV Q12 [facility] Dextrose (Dextrose 10%-Water) 250 mls @ 999 mls/hr IV .Q16M PRN; Protocol PRN Reason: HYPOGLYCEMIA Insulin Glargine (Lantus ([facility])) 30 units SC QHS [facility] Insulin Human Lispro (Humalog Kwikpen (Bk)) 0 unit SC Q6 [facility]; Protocol Last Admin: 03/25/19 06:25 Dose: 2 u Documented by: Lisinopril (Zestril) 20 mg PO QHS [facility] Melatonin (Melatonin) 3 mg PO QHS PRN PRN PRN Reason: INSOMNIA Metoprolol Succinate (Toprol Xl (Beta Trino)) 50 mg PO DAILY [facility] Mirabegron (Myrbetriq) 25 mg PO DAILY [facility] Montelukast Sodium (Singulair) 10 mg PO QHS [facility] Nicotine (Nicoderm Cq (Pbkc)) 21 mg TRANSDERM. DAILY [facility] Last Admin: 03/25/19 01:38 Dose: 21 mg Documented by: Ondansetron HCl (Zofran) 4 mg IV Q8H PRN PRN PRN Reason: NAUSEA/VOMITING Oxycodone HCl (Oxyir) 10 mg PO Q4H PRN PRN PRN Reason: Pain Score 4-5/10 Potassium Chloride (K-Dur) 10 meq PO DAILY [facility] Pregabalin (Lyrica) 75 mg PO TID [facility] Last Admin: 03/25/19 06:17 Dose: 75 mg Documented by: Prochlorperazine Edisylate (Compazine Iv) 5 mg IV Q4H PRN PRN PRN Reason: Breakthrough nausea/vomiting Risperidone (Risperdal) 4 mg PO QHS [facility] Sodium Chloride () 10 - 40 ml IV UD PRN PRN Reason: SALINE FLUSH Sucralfate (Carafate) 1 gm PO 1HR_ACHS [facility] Last Admin: 03/25/19 06:16 Dose: 1 gm Documented by: Throat Lozenges (Cepacol Sore Throat Lozenge) 1 lozenge MUCOUS MEM Q2H PRN PRN PRN Reason: Sore throat or cough Tizanidine HCl (Zanaflex) 6 mg PO TID PRN PRN PRN Reason: SPASMS Last Admin: 03/25/19 01:38 Dose: 6 mg Documented by: Trazodone HCl (Desyrel) 200 mg PO QHS [facility] Assessment/Plan All Active Problems (Last Reviewed 01/17/19 @ 14:28 by Rosanna Hampton NP-C) Acute viral bronchitis (Acute) Intractable abdominal pain (Acute) Marginal ulcer (Acute) Acute and chronic respiratory failure with hypoxia (Acute) COPD exacerbation (Acute) Pneumonia (Resolved) Sepsis (Resolved) Cataract (Acute) Encephalopathy (Acute) Hypoxia (Acute) Hyperglycemia (Acute) Acute respiratory failure (Acute) CAP (community acquired pneumonia) (Acute) Diarrhea (Resolved) Hypokalemia (Resolved) 53-year-old female with marginal ulcer 1. The patient was previously seen and had an EGD which showed a marginal ulcer. The patient was advised to stop smoking. I tried to refer her last time I saw her to a bariatric surgeon in [place] and they would not even see her until she stops smoking. She is on a PPI at home. I discussed all of this with her in detail. I discussed that she needs to stop smoking but she told me that she cannot stop smoking because that is all she does not sit at home and watch TV and smoke. I advised that the medication would not work and her ulcer would not heal until she stops smoking. There is unfortunately nothing I can do in the situation. I do not believe an EGD would help as there is no treatment that would be performed only identification of the same marginal ulcer that was already diagnosed. If the patient wants revision of surgery she would need to see a bariatric surgeon but is likely that they would not do any revision of her [place]-en-Y until she proves that she is stop smoking. Okay to start a diet for my standpoint as there is no plan for EGD. Lopez Bills MD Pager: [facility] [address] [place] [address] [address] [place] [address] Office:
[2019-03-25] MEDS: oxyCODONE 5 MG Tablet 10 MG PO ×3 (09:00→20:32)
[2019-03-25] MEDS: amLODIPine 10 MG Tablet PO (09:02)
[2019-03-25] MEDS: busPIRone 15 MG TABLET 30 MG PO ×2 (09:02→22:46)
[2019-03-25] MEDS: Furosemide 20 MG Tablet PO (09:03)
[2019-03-25] MEDS: Mirabegron 25 MG TAB.ER.24H PO (09:03)
[2019-03-25] MEDS: DULoxetine Hcl 60 MG Capsule 120 MG PO (09:03)
[2019-03-25] MEDS: Metoprolol(XL)Succ 50 MG Tablet PO (09:04)
[2019-03-25] MEDS: 0.9% Saline Lock 10 ML Syringe IV (09:05)
[2019-03-25 11:46] LABS: Bedside Glucose 193 mg/dL (70-110)
--- NOTE | 2019-03-25 15:00 | PCM.PN.HOSP ---
Patient Problems: Active and Suspected Problems (Last Reviewed 01/17/19 @ 14:28 by Rosanna Hampton NP-C) Acute viral bronchitis (Acute) Intractable abdominal pain (Acute) Marginal ulcer (Acute) Reason for Visit: Follow-up on abdominal pain, COPD exacerbation Subjective: Patient was seen and examined. She complains of wheezing and having progressive SOB. No EGD planned by general surgery. Vitals/I&O's: Vital Signs Temp Pulse Resp BP Pulse Ox 97.9 F 80 20 H 116/61 98 03/25/19 10:37 03/25/19 13:26 03/25/19 13:26 03/25/19 10:37 03/25/19 13:26 Oxygen Flow Rate (L/min) 3 Oxygen Delivery Method Nasal Cannula Weight: 115 kg Body Mass Index (BMI) 44.9 Intake and Output for Last 24 Hours 03/23/19 03/24/19 03/25/19 23:59 23:59 23:59 Intake Total 110 / 110 1110 / 1110 Balance 110 / 110 1110 / 1110 General: Alert, Oriented x3, Cooperative, No apparent distress, - - obese, on 3L oxygen HEENT: Atraumatic, PERRLA, EOMI, Normocephalic Oral: Moist Mucosa Neck: Supple Lungs: Diminished, Wheezes Cardiovascular: Regular rate, Regular Rhythm, Normal S1, Normal S2 Abdomen: Bowel Sounds Present, Soft, Non-Distended, No Hepato-splenomegaly, Tender - over epigastric region, no guarding or RBT Extremities: No edema Skin: No rashes Musculoskeletal: No Tenderness to Palpation of Joints or Extremities Lymphatic: No Cervical, Supraclavicular, or Inguinal Adenopathy Neurological: Cranial nerves II-XII grossly intact, Neuro grossly intact Psych/Mental Status: Normal Affect, Appropriate Microbiology Past 72 Hours 03/25/19 02:45 Mucosa - Nose Respiratory Panel (PCR) - Final Laboratory Results 03/24/19 22:10: WBC 8.8, RBC 4.70, Hgb 14.1, Hct 43.7, MCV 93.0, MCH 30.0, MCHC 32.3, RDW Std Deviation 44.1 H, RDW Coeff of Kaycee 13.0, Plt Count 238, MPV 10.2, Immature Gran % (Auto) 0.100, Neut % (Auto) 69.9, Lymph % (Auto) 17.5 L, [place] % (Auto) 9.6, Eos % (Auto) 1.8, Baso % (Auto) 1.1 H, Absolute Neuts (auto) 6.2, Absolute Lymphs (auto) 1.54, Nucleated RBC % 0 03/24/19 22:10: Sodium 136, Potassium 3.8, Chloride 104, Carbon Dioxide 26.0, Anion Gap 6, BUN 7, Creatinine 1.01, Estim Creat Clear Calc 53.29, Est GFR (MDRD) Af Amer 74, Est GFR (MDRD) Non-Af 61, BUN/Creatinine Ratio 6.9 L, Glucose 411 H, Calcium 9.9, Total Bilirubin 0.30, AST 18, ALT 36, Alkaline Phosphatase 180 H, Total Protein 7.3, Albumin 3.6, Globulin 3.7, Albumin/Globulin Ratio 1.0, Lipase 57 L 03/24/19 22:10: Lactic Acid 2.1 H* 03/24/19 22:10: Troponin I < 0.015 03/24/19 22:10: PT 14.1, INR 1.1, APTT 31.6 03/25/19 00:22: Urine Color Yellow, Urine Clarity Clear, Urine pH 6.0, Ur Specific [place] 1.010, Urine Protein Negative, Urine Glucose (UA) 1000 H, Urine Ketones Negative, Urine Occult Blood Negative, Urine Nitrite Negative, Urine Bilirubin Negative, Urine Urobilinogen Normal, Ur Leukocyte Esterase Negative, Urine RBC 0 SEEN, Urine WBC 0 SEEN, Ur Squamous Epith Cells 0-5 SEEN, Urine Bacteria 0 SEEN, Urine Mucus 0 SEEN 03/25/19 01:37: POC Glucose 153 H 03/25/19 02:20: WBC 10.2, RBC 4.26, Hgb 12.9, Hct 39.9, MCV 93.7, MCH 30.3, MCHC 32.3, RDW Std Deviation 44.6 H, RDW Coeff of Kaycee 13.2, Plt Count 228, MPV 10.2, Immature Gran % (Auto) 0.300, Neut % (Auto) 70.7 H, Lymph % (Auto) 16.6 L, [place] % (Auto) 9.8, Eos % (Auto) 1.8, Baso % (Auto) 0.8, Absolute Neuts (auto) 7.2, Absolute Lymphs (auto) 1.69, Nucleated RBC % 0 03/25/19 02:20: Sodium 141, Potassium 3.6, Chloride 110 H, Carbon Dioxide 29.0, Anion Gap 2 L, BUN 8, Creatinine 0.87, Estim Creat Clear Calc 61.86, Est GFR (MDRD) Af Amer 87, Est GFR (MDRD) Non-Af 72, BUN/Creatinine Ratio 9.2 L, Glucose 114 H, Calcium 9.7 03/25/19 02:20: Lactic Acid 1.4 03/25/19 06:21: POC Glucose 168 H 03/25/19 11:37: POC Glucose 193 H Current Medications Acetaminophen (Tylenol) 650 mg PO Q6H PRN PRN PRN Reason: Pain Score 1-3/Temp > 100.7 F Albuterol/Ipratropium (Duoneb) 3 ml INHALATION Q6HWA.RT [facility] Last Admin: 03/25/19 13:26 Dose: 3 ml Documented by: Amlodipine Besylate (Norvasc) 10 mg PO DAILY [facility] Atorvastatin Calcium (Lipitor) 80 mg PO QHS [facility] Buspirone HCl (Buspar) 30 mg PO BID [facility] Last Admin: 03/25/19 09:02 Dose: 30 mg Documented by: Diphenhydramine HCl (Benadryl) 25 mg IV Q6H PRN PRN PRN Reason: ITCHING Last Admin: 03/25/19 02:29 Dose: 25 mg Documented by: Duloxetine HCl (Cymbalta) 120 mg PO DAILY [facility] Last Admin: 03/25/19 09:03 Dose: 120 mg Documented by: Furosemide (Lasix) 20 mg PO DAILY [facility] Last Admin: 03/25/19 09:03 Dose: 20 mg Documented by: Glucagon () 1 mg IM .X1 PRN PRN Reason: Hypoglycemia Guaifenesin (Robitussin) 20 ml PO Q4H PRN PRN PRN Reason: COUGH Last Admin: 03/25/19 14:34 Dose: 20 ml Documented by: Hydromorphone HCl (Dilaudid Inj) 0.5 mg IV Q4H PRN PRN PRN Reason: Pain Score 6-10/10 Last Admin: 03/25/19 04:35 Dose: 0.5 mg Documented by: Sodium Chloride () 1,000 mls @ 125 mls/hr IV .Q8H [facility] Last Admin: 03/25/19 06:29 Dose: 125 mls/hr Documented by: Pantoprazole Sodium 40 mg/ (Sodium Chloride) 110 mls @ 330 mls/hr IV Q12 [facility] Last Infusion: 03/25/19 09:24 Dose: Infused Documented by: Dextrose (Dextrose 10%-Water) 250 mls @ 999 mls/hr IV .Q16M PRN; Protocol PRN Reason: HYPOGLYCEMIA Insulin Glargine (Lantus ([facility])) 30 units SC QHS [facility] Insulin Human Lispro (Humalog Kwikpen ([facility])) 0 unit SC Q6 [facility]; Protocol Last Admin: 03/25/19 11:39 Dose: 2 u Documented by: Lisinopril (Zestril) 20 mg PO QHS [facility] Melatonin (Melatonin) 3 mg PO QHS PRN PRN PRN Reason: INSOMNIA Metoprolol Succinate (Toprol Xl (Beta Trino)) 50 mg PO DAILY [facility] Last Admin: 03/25/19 09:04 Dose: 50 mg Documented by: Mirabegron (Myrbetriq) 25 mg PO DAILY [facility] Last Admin: 03/25/19 09:03 Dose: 25 mg Documented by: Montelukast Sodium (Singulair) 10 mg PO QHS [facility] Nicotine (Nicoderm Cq (Pbkc)) 21 mg TRANSDERM. DAILY [facility] Last Admin: 03/25/19 09:02 Dose: 21 mg Documented by: Ondansetron HCl (Zofran) 4 mg IV Q8H PRN PRN PRN Reason: NAUSEA/VOMITING Oxycodone HCl (Oxyir) 10 mg PO Q4H PRN PRN PRN Reason: Pain Score 4-5/10 Last Admin: 03/25/19 14:34 Dose: 10 mg Documented by: Potassium Chloride (K-Dur) 10 meq PO DAILY [facility] Last Admin: 03/25/19 09:03 Dose: 10 meq Documented by: Pregabalin (Lyrica) 75 mg PO TID [facility] Last Admin: 03/25/19 14:39 Dose: 75 mg Documented by: Prochlorperazine Edisylate (Compazine Iv) 5 mg IV Q4H PRN PRN PRN Reason: Breakthrough nausea/vomiting Risperidone (Risperdal) 4 mg PO QHS [facility] Sodium Chloride () 10 - 40 ml IV UD PRN PRN Reason: SALINE FLUSH Last Admin: 03/25/19 09:05 Dose: 10 ml Documented by: Sucralfate (Carafate) 1 gm PO 1HR_AC[facility] Last Admin: 03/25/19 14:40 Dose: 1 gm Documented by: Throat Lozenges (Cepacol Sore Throat Lozenge) 1 lozenge MUCOUS MEM Q2H PRN PRN PRN Reason: Sore throat or cough Tizanidine HCl (Zanaflex) 6 mg PO TID PRN PRN PRN Reason: SPASMS Last Admin: 03/25/19 09:00 Dose: 6 mg Documented by: Trazodone HCl (Desyrel) 200 mg PO QHS [facility] STROKE Vital Signs/Narrative: Vital Signs Pulse Resp Pulse Ox 03/25/19 13:26 80 20 H 98 Medical Necessity - Tobacco Use Smoking Status: Current every day smoker Tobacco Use: Cigarettes Assessment/Plan All Active Problems (Last Reviewed 01/17/19 @ 14:28 by Rosanna Hampton, TICO-C) Acute viral bronchitis (Acute) Intractable abdominal pain (Acute) Marginal ulcer (Acute) Acute and chronic respiratory failure with hypoxia (Acute) COPD exacerbation (Acute) Pneumonia (Resolved) Sepsis (Resolved) Cataract (Acute) Encephalopathy (Acute) Hypoxia (Acute) Hyperglycemia (Acute) Acute respiratory failure (Acute) CAP (community acquired pneumonia) (Acute) Diarrhea (Resolved) Hypokalemia (Resolved) 1. Acute gastritis/PUD, on PPI IV, not candidate for repeat EGD 2. Acute bronchitis/COPD exacerbation, respiratory panel is negative Wheezes on exam Will continue with scheduled breathing treatments Will start on prednisone 3. History of pulmonary embolism, will resume eliquis 4. CAD status post PCI x5, remotely, will resume Plavix and Eliquis, continue on statin, lisinopril, metoprolol regimen. 5. Chronic pain syndrome, continue Lyrica, tizanidine regimen and given acute presentation as noted PRN oral and IV medications additionally. 6. Hypertension, controlled, continue amlodipine, Lasix, lisinopril, metoprolol, PRN hydralazine. 7. Hyperlipidemia, continue statin 8. Iron deficiency anemia, stable Hb 9. Morbid Obesity, lifestyle modification recommended. 10. Nicotine dependence, encouraged cessation, inpatient consultation per RT, NR if desired. 11. Diabetes mellitus type II, BS fairly controlled, continue home insulin regimen, blood glucose checks with ISS. 12. Schizophrenia/anxiety and depression, continue on BuSpar, Cymbalta, Risperdal and trazodone regimen. 13. RACHEL on CPAP. 14. DVT prophylaxis - on Eliquis Code Visit Inpatient E&M: 73539 Subs Hosp L2
--- NOTE | 2019-03-25 15:35 | CASEMGMT ---
PAMELA ALVAREZ Face to Face with patient for initial transition planning/care coordination assessment. RN CM introduced self and role at [facility]. Patient lying in chair, alert and oriented. Patient willing to participate in assessment and is able to answer all questions appropriately. Care providers, pharmacy, and demographics verified. Patient wishes to discharge home, denies need for home health at this time. Patient states she has no further needs or concerns at this time. CM to follow for discharge planning needs that may arise. PCP: Claudia Specialists: Case, pulmonology; Eric, oncology; Zoraida, side hemmer Preferred Pharmacy: [place] Insurance: [email or web address] [facility] Prescription Benefit: yes Living Will/HPOA: yes, sister Jessica Payan LNOK: Sisters Living Arrangements: Patient lives in 5th floor apartment with elevator. Patient is independent. Transportation: sister/friend DME/HHC: Patient has shower chair, cane, walker, bipap, nebulizer, and oxygen with portability through [employer]. [facility] and has been to [facility] in the past. Disposition Plan: Patient to discharge home with family support and follow-up plans in place. Bianca BERKOWITZ, RN, CM
[2019-03-25 17:41] LABS: Bedside Glucose 157 mg/dL (70-110)
[2019-03-25] MEDS: predniSONE 20 MG Tablet 40 MG PO (20:31)
[2019-03-25] MEDS: traZODone 100 MG Tablet 200 MG PO (22:47)
[2019-03-25] MEDS: APIXABAN 5 MG TABLET PO (22:48)
[2019-03-25] MEDS: Atorvastatin Calcium 80 MG Tablet PO (22:48)
[2019-03-25] MEDS: Clopidogrel Bisulfate 75 MG Tablet PO (22:49)
[2019-03-25] MEDS: RisperiDONE 2 MG Tablet 4 MG PO (22:50)
[2019-03-25] MEDS: Lisinopril 20 MG Tablet PO (22:51)
[2019-03-25] MEDS: Montelukast 10 MG Tablet PO (22:51)
[2019-03-26] VITALS (10 sets, daily range): BP systolic 123–159; BP diastolic 60–76; PULSE 61–66; RESP 18–20; TEMP 36.5–36.9; O2SAT 89–97
[2019-03-26] MEDS: Insulin Lispro 100 UNIT/ML INSULN.PEN SC ×3 (00:04→11:35)
[2019-03-26 00:31] LABS: Bedside Glucose 210 mg/dL (70-110)
[2019-03-26 00:31] LABS: Bedside Glucose 229 mg/dL (70-110)
[2019-03-26] MEDS: Ondansetron 4 MG/2 ML Vial IV (02:46)
[2019-03-26] MEDS: oxyCODONE 5 MG Tablet 10 MG PO ×3 (02:46→11:39)
[2019-03-26] MEDS: tiZANidine HCl 2 MG Tablet 6 MG PO ×2 (02:47→10:24)
[2019-03-26] MEDS: 0.9% Normal Saline 1,000 ML 125 ML IV (03:04)
[2019-03-26] MEDS: guaiFENesin 10 ML UDC (200MG/10ML) 20 ML PO ×2 (04:16→10:23)
--- NOTE | 2019-03-26 05:55 | RAD_ITS ---
STUDY: X-RAY CHEST REASON FOR EXAM: Female, 53 years old. SOB -- F/U ON ATELECTASIS VS INFILTRATES TECHNIQUE: Single AP portable view of the chest. COMPARISON: Comparison is made with prior study dated March 25, 2019. FINDINGS: Residual increased markings at the left lung base although there has been improvement. The right lung base is now clear. There is no demonstrated pleural abnormality. Normal size heart. Normal mediastinum and alden. Normal visualized pulmonary arteries. There is atherosclerotic tortuosity of the aortic arch and descending thoracic aorta. There are diffuse degenerative changes of the visualized thoracic spine. Normal visualized ribs, clavicles, and shoulders. There is no demonstrated abnormality of the visualized soft tissue structures of the upper abdomen. RAD/Chest 1 View (Portable) IMPRESSION: Improved aeration at both lung bases with mild residual increased markings at the left lung base. Electronically Signed: Manuelito Silva, at 9:27 EST , Service support ,
[2019-03-26] MEDS: Sucralfate 1 GM Tablet PO ×2 (06:18→11:39)
[2019-03-26] MEDS: Pregabalin 75 MG Capsule PO (06:18)
[2019-03-26 06:28] LABS: Anion Gap 3 (5-15); BUN 6 mg/dL (7-18); BUN/Creat Ratio 7.5 RATIO (10-20); Calcium,Total 8.8 mg/dL (8.5-10.1); Chloride 108 mmol/L (98-107); EST Glomerular Filtration Rate 80 mL/min (>60); Est Glom Filt Rate - Afr Amer 96 mL/min (>60); Estimated Creatinine Clearance 67.27 ml/min; Glucose 237 mg/dL (74-106); Potassium 4.7 mmol/L (3.5-5.1); Sodium Level 137 mmol/L (136-145)
[2019-03-26 06:35] LABS: Bedside Glucose 251 mg/dL (70-110)
[2019-03-26] MEDS: proCHLORPERazine 10 MG/2 ML Vial 5 MG IV (06:35)
[2019-03-26] MEDS: Ipratropium/Albuterol Sulfate 3 ML AMPUL.NEB INHALATION (06:56)
[2019-03-26] MEDS: Mirabegron 25 MG TAB.ER.24H PO (08:43)
[2019-03-26] MEDS: Metoprolol(XL)Succ 50 MG Tablet PO (08:44)
[2019-03-26] MEDS: amLODIPine 10 MG Tablet PO (08:44)
[2019-03-26] MEDS: APIXABAN 5 MG TABLET PO (08:44)
[2019-03-26] MEDS: busPIRone 15 MG TABLET 30 MG PO (08:44)
[2019-03-26] MEDS: predniSONE 20 MG Tablet 40 MG PO (08:44)
[2019-03-26] MEDS: DULoxetine Hcl 60 MG Capsule 120 MG PO (08:45)
[2019-03-26] MEDS: Furosemide 20 MG Tablet PO (08:45)
--- NOTE | 2019-03-26 11:11 | PCM.DC ---
- Discharge Diagnoses Current Active Problems: Current Active and Chronic Problems (Last Reviewed 01/17/19 @ 14:28 by ERROL Cooper) Acute viral bronchitis (Acute) Intractable abdominal pain (Acute) Marginal ulcer (Acute) Reason(s) for Visit for Discharge Instructions: Abdominal pain, SOB, cough You will use the following diet at home:: Calorie/Carbohydrate Controlled (specify 1200, 1400, etc), Cardiac Your food should be the consistency of: Mechanical soft (ground) Your liquids should be the consistency of: Regular/Thin Discharge Activity: Return to Normal Activity Additional Instructions: Continue on a liquid diet for a couple of days and advance as tolerated to a regular constitency. You are strongly advised to quit smoking. Take all your meds as prescribed. Follow-up with your primary care doctor within 1-2 weeks. Allergies/Adverse Reactions: Allergies amoxicillin Allergy (Verified 03/24/19 21:55) Itching erythromycin base Allergy (Verified 03/24/19 21:55) Unknown methadone Allergy (Verified 03/24/19 21:55) Itching metolazone Allergy (Verified 03/24/19 21:55) Unknown Penicillins Allergy (Verified 03/24/19 21:55) Hives Sulfa (Sulfonamide Antibiotics) Allergy (Verified 03/24/19 21:55) Hives clarithromycin [From Biaxin] Adverse Reaction (Verified 03/24/19 21:55) Nausea ibuprofen Adverse Reaction (Verified 03/24/19 21:55) Other 3 BLEEDING ULCURS morphine Adverse Reaction (Verified 03/24/19 21:55) Other HEADACHE Medications to take at Discharge Atorvastatin Calcium [Lipitor] 80 mg PO QHS 08/22/15 Clopidogrel Bisulfate [Plavix] 75 mg PO QHS 08/22/15 Metoprolol(XL)Succ [Toprol Xl (Beta Trino)] 50 mg PO DAILY 08/22/15 Nitroglycerin 0.4 mg SL PRN PRN 11/08/16 Duloxetine Hcl [Cymbalta] 120 mg PO DAILY 01/16/17 amlodipine 10 mg tablet 10 mg PO DAILY tab 05/02/17 potassium chloride 10 mEq tablet,extended release(part/cryst) 10 meq PO DAILY #60 tab 06/16/17 Pregabalin [Lyrica] 75 mg PO TID 03/08/18 Risperidone 4 mg PO QHS 03/08/18 Tizanidine HCl 6 mg PO TID PRN PRN 03/08/18 traZODone [Desyrel] 200 mg PO QHS 03/08/18 Buspirone HCl 30 mg PO BID 04/13/18 fluticasone propionate 230 mcg-salmeterol 21 mcg/actuation HFA inhaler 2 puff INHALATION BID #12 g 08/09/18 Sucralfate [Carafate] 1 gm PO 4X/DAY 08/16/18 Albuterol Aerosols [Ventolin Aerosols] 2.5 mg INHALATION Q4H PRN 08/19/18 albuterol sulfate 90 mcg/actuation aerosol inhaler 2 puff INHALATION Q4H PRN PRN #18 g 10/31/18 montelukast 10 mg tablet 10 mg PO QHS #30 tab 10/31/18 Acetaminophen [Tylenol] 500 mg PO Q6H PRN PRN 11/20/18 Furosemide [Lasix] 20 mg PO DAILY 11/20/18 Lisinopril 20 mg PO QHS 11/20/18 Mirabegron [Myrbetriq] 25 mg PO DAILY 11/20/18 Apixaban [Eliquis] 5 mg PO BID #74 tab 11/22/18 Insulin Aspart [Novolog Flexpen] 15 units SUBCUT TIDCM 01/10/19 tiotropium bromide 2.5 mcg/actuation mist for inhalation 2 puff INHALATION DAILY #1 device 02/20/19 Insulin Glargine [Lantus SoloStar Pen] 30 units SUBCUT QHS 03/04/19 Acetaminophen [Tylenol Tablet] 650 mg PO Q6H PRN PRN tab 03/26/19 Nicotine [Nicoderm Cq] 21 mg TRANSDERM. DAILY #30 patch 03/26/19 Pantoprazole Sodium [Protonix] 40 mg PO BID 30 Days #60 tab 03/26/19 predniSONE tablet 40 mg PO DAILY@0800 3 Days #6 tab 03/26/19 The following prescriptions were given: Nicotine [Nicoderm Cq] 21 mg TRANSDERM. DAILY #30 patch Transmission Status: Pending to [facility]30 predniSONE tablet 40 mg PO DAILY@0800 3 Days #6 tab Transmission Status: Pending to [facility]30 Pantoprazole Sodium [Protonix] 40 mg PO BID 30 Days #60 tab Transmission Status: Pending to [facility]30 Primary Care Physician: Janel Taylor MD [Primary Care Provider] - Please follow up with your Primary Care Physician in: within 1-2 weeks Test Results: Test results from this visit will be discussed in further detail at your follow-up appointment, if applicable. Proposed Discharge Date: 03/26/19
--- NOTE | 2019-03-26 11:14 | DS.PCM_ITS ---
Discharge Date and Diagnosis Date of Admission: 03/24/19 Date of Discharge: 03/26/19 - Primary Discharge Diagnosis Active Problems (Last Reviewed 01/17/19 @ 14:28 by ERROL Cooper) Acute gastritis vs peptic ulcer disease exacerbation Acute bronchitis/COPD exacerbation, mild - Secondary Discharge Diagnosis Chronic Problems (Last Reviewed 01/17/19 @ 14:28 by ERROL Cooper) Iron deficiency (Chronic) Stage 2 moderate COPD by GOLD classification (Chronic) HTN (hypertension) (Chronic) Peptic ulcer (Chronic) Epigastric pain (Chronic) Chronic neutrophilia (Chronic) Iron deficiency anemia following bariatric surgery (Chronic) Osteoarthritis (Chronic) Morbid obesity (Chronic) Neutrophilic leukocytosis (Chronic) Type 2 diabetes mellitus (Chronic) Schizophrenia (Chronic) Hip osteoarthritis (Chronic) with chronic pain-right hip Iron deficiency anemia due to dietary causes (Chronic) exact cause of iron def anemia unknown-felt likely secondary to past history gastric bypass- although chronic blood loss etiology a possibility (has never had colonoscopy)-further workup including hemoccult stool is recommended Microcytic anemia (Chronic) Morbid obesity with BMI of 45.0-49.9, adult (Chronic) Pulmonary hypertension (Chronic) Chronic narcotic use (Chronic) Depression (Chronic) Gastroesophageal reflux disease (Chronic) Parathyroid abnormality (Chronic) History of PTCA (Chronic) Vitamin D deficiency (Chronic) Hyperlipidemia (Chronic) History of peptic ulcer disease (Chronic) Thyroid nodule (Chronic) deemed to be benign. Benign essential hypertension (Chronic) CAD (coronary artery disease) (Chronic) RACHEL (obstructive sleep apnea) (Chronic) 17/13 cm of water Spinal stenosis of lumbar region at multiple levels (Chronic) Tobacco abuse (Chronic) COPD (chronic obstructive pulmonary disease) with emphysema (Chronic) Hospital Course and Treatment Imaging Results: 03/26/19 05:55 Chest 1 View (Portable) [RAD] AM (NON MEDS) Clinical Impression(s) from Imaging Studies Chest X-Ray 03/25/19 05:55 IMPRESSION: Increased markings at the lung bases suggestive of bibasilar atelectasis and/or early infiltrates. Follow-up is recommended. Electronically Signed: Manuelito Silva, at 9:54 EST , Service support , Chest X-Ray 03/26/19 05:55 IMPRESSION: Improved aeration at both lung bases with mild residual increased markings at the left lung base. Electronically Signed: Manuelito Silva, at 9:27 EST , Service support , General surgery Operations: None, total hip replacement Procedures: None Summary of Care Provided: The patient is a 53 year old F with past medical history of peptic ulcer disease, chronic smoker who presented with ongoing persistent abdominal pain that is worse with food intake. Patient had an admitting CT scan of the abdomen and pelvis that showed no acute pathology. She was admitted to the medical surgical floor. General surgery was consulted. He felt the patient was not a candidate for EGD as she continues to smoke. No hematemesis or rectal bleeding was seen. Patient was managed on IV PPI with improvement in her symptoms. She also had acute COPD exacerbation/bronchitis. Respiratory panel was negative. She was maintained on breathing treatment and started on prednisone. She was just discharged on a short course of prednisone. She will follow-up with her primary care doctor. She was strongly advised to quit smoking. Subjective: On the day of discharge, patient was seen and examined. Denied any new complai nts. Abdominal pain was gone. She was tolerated a liquid diet. Objective: Physical exam: General: Alert, Oriented x3, Cooperative, No apparent distress, - - obese, on 3L oxygen HEENT: Atraumatic, PERRLA, EOMI, Normocephalic Oral: Moist Mucosa Neck: Supple Lungs: Diminished, Wheezes Cardiovascular: Regular rate, Regular Rhythm, Normal S1, Normal S2 Abdomen: Bowel Sounds Present, Soft, Non-Distended, No Hepato-splenomegaly, Tender - over epigastric region, no guarding or RBT Extremities: No edema Skin: No rashes Musculoskeletal: No Tenderness to Palpation of Joints or Extremities Lymphatic: No Cervical, Supraclavicular, or Inguinal Adenopathy Neurological: Cranial nerves II-XII grossly intact, Neuro grossly intact Psych/Mental Status: Normal Affect, Appropriate - Physical Exam Vitals/I&O's: Vital Signs Temp Pulse Resp BP Pulse Ox 97.9 F 66 20 H 159/64 H 95 03/26/19 08:27 03/26/19 08:44 03/26/19 08:27 03/26/19 08:27 03/26/19 10:29 Oxygen Flow Rate (L/min) [At 3 REST on Room Air] Oxygen Flow Rate (L/min) [ 3 AMBULATION with Oxygen] Oxygen Flow Rate (L/min) 3 Oxygen Delivery Method Nasal Cannula Weight: 115 kg Body Mass Index (BMI) 44.9 Intake and Output for Last 24 Hours 03/24/19 03/25/19 03/26/19 23:59 23:59 23:59 Intake Total 110 / 110 3200 / 3200 2262.5 / 2262.5 Balance 110 / 110 3200 / 3200 2262.5 / 2262.5 Microbiology Past 72 Hours 03/25/19 02:45 Mucosa - Nose Respiratory Panel (PCR) - Final Laboratory Results 03/25/19 11:37: POC Glucose 193 H 03/25/19 17:34: POC Glucose 157 H 03/25/19 22:34: POC Glucose 210 H 03/26/19 00:03: POC Glucose 229 H 03/26/19 05:40: Sodium 137, Potassium 4.7, Chloride 108 H, Carbon Dioxide 26.0, Anion Gap 3 L, BUN 6 L, Creatinine 0.80, Estim Creat Clear Calc 67.27, Est GFR (MDRD) Af Amer 96, Est GFR (MDRD) Non-Af 80, BUN/Creatinine Ratio 7.5 L, Glucose 237 H, Calcium 8.8 03/26/19 06:21: POC Glucose 251 H Current Medications Acetaminophen (Tylenol) 650 mg PO Q6H PRN PRN PRN Reason: Pain Score 1-3/Temp > 100.7 F Albuterol/Ipratropium (Duoneb) 3 ml INHALATION Q6HWA.RT [facility] Last Admin: 03/26/19 06:56 Dose: 3 ml Documented by: Amlodipine Besylate (Norvasc) 10 mg PO DAILY [facility] Last Admin: 03/26/19 08:44 Dose: 10 mg Documented by: Apixaban (Eliquis) 5 mg PO BID [facility] Last Admin: 03/26/19 08:44 Dose: 5 mg Documented by: Atorvastatin Calcium (Lipitor) 80 mg PO QHS [facility] Last Admin: 03/25/19 22:48 Dose: 80 mg Documented by: Buspirone HCl (Buspar) 30 mg PO BID [facility] Last Admin: 03/26/19 08:44 Dose: 30 mg Documented by: Clopidogrel Bisulfate (Plavix) 75 mg PO QHS [facility] Last Admin: 03/25/19 22:49 Dose: 75 mg Documented by: Diphenhydramine HCl (Benadryl) 25 mg IV Q6H PRN PRN PRN Reason: ITCHING Last Admin: 03/25/19 02:29 Dose: 25 mg Documented by: Duloxetine HCl (Cymbalta) 120 mg PO DAILY [facility] Last Admin: 03/26/19 08:45 Dose: 120 mg Documented by: Furosemide (Lasix) 20 mg PO DAILY [facility] Last Admin: 03/26/19 08:45 Dose: 20 mg Documented by: Glucagon () 1 mg IM .X1 PRN PRN Reason: Hypoglycemia Guaifenesin (Robitussin) 20 ml PO Q4H PRN PRN PRN Reason: COUGH Last Admin: 03/26/19 10:23 Dose: 20 ml Documented by: Hydromorphone HCl (Dilaudid Inj) 0.5 mg IV Q4H PRN PRN PRN Reason: Pain Score 6-10/10 Last Admin: 03/25/19 04:35 Dose: 0.5 mg Documented by: Sodium Chloride () 1,000 mls @ 125 mls/hr IV .Q8H [facility] Last Infusion: 03/26/19 10:22 Dose: Infused Documented by: Pantoprazole Sodium 40 mg/ (Sodium Chloride) 110 mls @ 330 mls/hr IV Q12 [facility] Last Infusion: 03/26/19 09:07 Dose: Infused Documented by: Dextrose (Dextrose 10%-Water) 250 mls @ 999 mls/hr IV .Q16M PRN; Protocol PRN Reason: HYPOGLYCEMIA Insulin Glargine (Lantus (Bk)) 30 units SC QHS [facility] Last Admin: 03/25/19 22:52 Dose: 30 units Documented by: Insulin Human Lispro (Humalog Kwikpen ([facility])) 0 unit SC Q6 [facility]; Protocol Last Admin: 03/26/19 06:21 Dose: 4 u Documented by: Lisinopril (Zestril) 20 mg PO QHS [facility] Last Admin: 03/25/19 22:51 Dose: 20 mg Documented by: Melatonin (Melatonin) 3 mg PO QHS PRN PRN PRN Reason: INSOMNIA Metoprolol Succinate (Toprol Xl (Beta Trino)) 50 mg PO DAILY [facility] Last Admin: 03/26/19 08:44 Dose: 50 mg Documented by: Mirabegron (Myrbetriq) 25 mg PO DAILY [facility] Last Admin: 03/26/19 08:43 Dose: 25 mg Documented by: Montelukast Sodium (Singulair) 10 mg PO QHS [facility] Last Admin: 03/25/19 22:51 Dose: 10 mg Documented by: Nicotine (Nicoderm Cq (Pbkc)) 21 mg TRANSDERM. DAILY [facility] Last Admin: 03/26/19 08:43 Dose: 21 mg Documented by: Ondansetron HCl (Zofran) 4 mg IV Q8H PRN PRN PRN Reason: NAUSEA/VOMITING Last Admin: 03/26/19 02:46 Dose: 4 mg Documented by: Oxycodone HCl (Oxyir) 10 mg PO Q4H PRN PRN PRN Reason: Pain Score 4-5/10 Last Admin: 03/26/19 06:57 Dose: 10 mg Documented by: Potassium Chloride (K-Dur) 10 meq PO DAILY [facility] Last Admin: 03/26/19 08:43 Dose: 10 meq Documented by: Prednisone () 40 mg PO DAILY@0800 [facility] Last Admin: 03/26/19 08:44 Dose: 40 mg Documented by: Pregabalin (Lyrica) 75 mg PO TID [facility] Last Admin: 03/26/19 06:18 Dose: 75 mg Documented by: Prochlorperazine Edisylate (Compazine Iv) 5 mg IV Q4H PRN PRN PRN Reason: Breakthrough nausea/vomiting Last Admin: 03/26/19 06:35 Dose: 5 mg Documented by: Risperidone (Risperdal) 4 mg PO QHS [facility] Last Admin: 03/25/19 22:50 Dose: 4 mg Documented by: Sodium Chloride () 10 - 40 ml IV UD PRN PRN Reason: SALINE FLUSH Last Admin: 03/25/19 09:05 Dose: 10 ml Documented by: Sucralfate (Carafate) 1 gm PO 1HR_ACHS [facility] Last Admin: 03/26/19 06:18 Dose: 1 gm Documented by: Throat Lozenges (Cepacol Sore Throat Lozenge) 1 lozenge MUCOUS MEM Q2H PRN PRN PRN Reason: Sore throat or cough Tizanidine HCl (Zanaflex) 6 mg PO TID PRN PRN PRN Reason: SPASMS Last Admin: 03/26/19 10:24 Dose: 6 mg Documented by: Trazodone HCl (Desyrel) 200 mg PO QHS [facility] Last Admin: 03/25/19 22:47 Dose: 200 mg Documented by: Discharge Diet: Low fat/ Low Cholesterol, 2000 mg Sodium Diet, Carb Control Diet Discharge Activity: Return to Normal Activity Home Medications: Medications to take at Discharge Atorvastatin Calcium [Lipitor] 80 mg PO QHS 08/22/15 Clopidogrel Bisulfate [Plavix] 75 mg PO QHS 08/22/15 Metoprolol(XL)Succ [Toprol Xl (Beta Trino)] 50 mg PO DAILY 08/22/15 Nitroglycerin 0.4 mg SL PRN PRN 11/08/16 Duloxetine Hcl [Cymbalta] 120 mg PO DAILY 01/16/17 amlodipine 10 mg tablet 10 mg PO DAILY tab 05/02/17 potassium chloride 10 mEq tablet,extended release(part/cryst) 10 meq PO DAILY #60 tab 06/16/17 Pregabalin [Lyrica] 75 mg PO TID 03/08/18 Risperidone 4 mg PO QHS 03/08/18 Tizanidine HCl 6 mg PO TID PRN PRN 03/08/18 traZODone [Desyrel] 200 mg PO QHS 03/08/18 Buspirone HCl 30 mg PO BID 04/13/18 fluticasone propionate 230 mcg-salmeterol 21 mcg/actuation HFA inhaler 2 puff INHALATION BID #12 g 08/09/18 Sucralfate [Carafate] 1 gm PO 4X/DAY 08/16/18 Albuterol Aerosols [Ventolin Aerosols] 2.5 mg INHALATION Q4H PRN 08/19/18 albuterol sulfate 90 mcg/actuation aerosol inhaler 2 puff INHALATION Q4H PRN PRN #18 g 10/31/18 montelukast 10 mg tablet 10 mg PO QHS #30 tab 10/31/18 Acetaminophen [Tylenol] 500 mg PO Q6H PRN PRN 11/20/18 Furosemide [Lasix] 20 mg PO DAILY 11/20/18 Lisinopril 20 mg PO QHS 11/20/18 Mirabegron [Myrbetriq] 25 mg PO DAILY 11/20/18 Apixaban [Eliquis] 5 mg PO BID #74 tab 11/22/18 Insulin Aspart [Novolog Flexpen] 15 units SUBCUT TIDCM 01/10/19 tiotropium bromide 2.5 mcg/actuation mist for inhalation 2 puff INHALATION DAILY #1 device 02/20/19 Insulin Glargine [Lantus SoloStar Pen] 30 units SUBCUT QHS 03/04/19 Acetaminophen [Tylenol Tablet] 650 mg PO Q6H PRN PRN tab 03/26/19 Nicotine [Nicoderm Cq] 21 mg TRANSDERM. DAILY #30 patch 03/26/19 Pantoprazole Sodium [Protonix] 40 mg PO BID 30 Days #60 tab 03/26/19 predniSONE tablet 40 mg PO DAILY@0800 3 Days #6 tab 03/26/19 Following Prescrptions Were Given to Patient: Nicotine [Nicoderm Cq] 21 mg TRANSDERM. DAILY #30 patch Transmission Status: Received by [facility] #30 predniSONE tablet 40 mg PO DAILY@0800 3 Days #6 tab Transmission Status: Received by [facility] Pantoprazole Sodium [Protonix] 40 mg PO BID 30 Days #60 tab Transmission Status: Received by [facility] Primary Care Physician: Janel Taylor MD [Primary Care Provider] - Please follow up with your Primary Care Physician in: within 1-2 weeks Disposition: Home Minutes spent on discharge:: 40 Patient Condition:: Stable Medical Necessity - Tobacco Use Smoking Status: Current every day smoker Tobacco Use: Cigarettes Meaningful Use Info Meaningful Use Diagnoses (Choose all that apply): None applicable Code Visit Inpatient E&M: 75490 Disch Hosp
[2019-03-26 11:51] LABS: Bedside Glucose 217 mg/dL (70-110)
--- NOTE | 2019-03-27 15:51 | CASEMGMT ---
PAMELA ALVAREZ Discharge Follow-Up Phone Call. Lace: 14 Strata: 4 Discharge Date: 03/26/19 Adm Dx: Intractable abd pain, N/V Call to pt to inquire about how she has been doing since being discharged from the hospital. Pt stated Okay but just tired. Pt denies having any questions about the discharge instructions. She states the pharmacy informed her that she needs a prior auth for the Protonix and that they are working on getting that. She states she is not sure where they are in the process of that. She states they told her that once they get the prior auth, that they would deliver the medication to her home. PAMELA ALVAREZ advised pt to contact the pharmacy if she has further concerns/questions about the medication. Also advised to contact her PCP, Dr Taylor if there are issues with the pharmacy getting prior auth, as her insurance may have another medication on their formulary that she could be switched to. Pt voices understanding. Pt states she has not made a follow-up appt with Dr Taylor but is aware that she needs to call to make this. She denies having any other questions or concerns. PAMELA ALVAREZ thanked pt for choosing [facility]. Nyasia BERKOWITZ RN, CM
== END 2019-03-26 11:54 | disposition home or self-care (01) | DRG 381 ==
LOC: ED 22:22 → MS3 03-25 00:18
PROVIDERS: Admitting Provider Family Medicine; Emergency Provider Emergency Medicine; PCP Family Medicine; Visit Provider Internal Medicine
DX: K28.3 Acute gastrojejunal ulcer without hemorrhage or perforation (principal); J44.0 Chronic obstructive pulmonary disease with (acute) lower respiratory infection; Z68.42 Body mass index [BMI] 45.0-49.9, adult; J44.1 Chronic obstructive pulmonary disease with (acute) exacerbation; K29.00 Acute gastritis without bleeding; K28.7 Chronic gastrojejunal ulcer without hemorrhage or perforation; K21.0 Gastro-esophageal reflux disease with esophagitis; R11.2 Nausea with vomiting, unspecified; I25.10 Atherosclerotic heart disease of native coronary artery without angina pectoris; D50.9 Iron deficiency anemia, unspecified; G89.4 Chronic pain syndrome; J20.8 Acute bronchitis due to other specified organisms; E11.65 Type 2 diabetes mellitus with hyperglycemia; T38.3X6A Underdosing of insulin and oral hypoglycemic [antidiabetic] drugs, initial encounter; Y92.9 Unspecified place or not applicable; I10 Essential (primary) hypertension; E78.5 Hyperlipidemia, unspecified; M16.10 Unilateral primary osteoarthritis, unspecified hip; E55.9 Vitamin D deficiency, unspecified; G47.33 Obstructive sleep apnea (adult) (pediatric); F20.9 Schizophrenia, unspecified; F32.9 Major depressive disorder, single episode, unspecified; F41.9 Anxiety disorder, unspecified; E66.01 Morbid (severe) obesity due to excess calories; F17.210 Nicotine dependence, cigarettes, uncomplicated; Z91.14 Patient's other noncompliance with medication regimen; Z79.891 Long term (current) use of opiate analgesic; Z79.01 Long term (current) use of anticoagulants; Z79.02 Long term (current) use of antithrombotics/antiplatelets; Z79.4 Long term (current) use of insulin; Z79.899 Other long term (current) drug therapy; Z86.711 Personal history of pulmonary embolism; Z87.11 Personal history of peptic ulcer disease; Z98.84 Bariatric surgery status; Z90.49 Acquired absence of other specified parts of digestive tract; Z98.61 Coronary angioplasty status
CPT/HCPCS: 36415; 71045; 71046; 80048; 80053; 81001; 82962; 83605; 83690; 84484; 85025; 85610; 85730; 87633; 93005; 94002; 94640; 97802; 99251; 99285; 99406; J7030; A4216; G0463; J2405

== ENCOUNTER 2019-04-04 15:22 | Emergency (ER) | payer MEDICARE, SELFPAY ==
[2019-03-25 01:05] VITALS: BMI 44.9
[2019-04-04 15:23] VITALS: BP 183/113; PULSE 104; RESP 20; TEMP 37; O2SAT 97
[2019-04-04 15:24] VITALS: BP 183/113; PULSE 104; RESP 20; TEMP 37; O2SAT 98; BMI 44.9
--- NOTE | 2019-04-04 15:37 | CT_ITS ---
STUDY: CT ABDOMEN AND PELVIS WITH CONTRAST REASON FOR EXAM: Female, 53 years old. Abdominal pain 34 weeks nausea vomiting diarrhea constipation RADIATION DOSAGE (If Supplied By Facility): CTDIvol = ( 15.41 ) mGy, DLP = ( 1214.42 ) mGycm TECHNIQUE: CT images were obtained from the dome of the diaphragm to the symphysis pubis without oral contrast. Oral and amp; IV Gastrografin and amp; 100mL Isovue-300 was administered. Sagittal and coronal images were reconstructed. Individualized dose optimization techniques were used for this CT. COMPARISON: 20 March 2019 FINDINGS: The visualized lung bases are unremarkable. There is advanced coronary artery disease. The liver is moderately enlarged. Normal gallbladder and extrahepatic biliary system. Normal spleen. Normal pancreas. Normal bilateral adrenal glands. The right kidney is ptotic and displaced inferiorly in part by the enlarged liver. Normal visualized stomach. Normal small intestine. Normal colon. The appendix is visualized and appears normal. Normal abdominal aorta. Normal inferior vena cava. Normal retroperitoneum. Normal urinary bladder. There is chronic compression deformity through the superior endplate of L1. Canal is moderately stenotic at L3-L4 due to discogenic spondylosis. Normal abdominal wall. There is prior ventral hernia repair with mesh. Appearance is similar to prior. CT/Abdomen/Pelvis WITH Contrast IMPRESSION: Hepatomegaly. Severe coronary artery disease. No acute findings or change since prior. Electronically Signed: Sergio Link, at 17:47 EST Tel , Service support ,
--- NOTE | 2019-04-04 15:40 | RAD_ITS ---
STUDY: X-RAY CHEST REASON FOR EXAM: Female, 53 years old. C/O ABD PAIN FOR 3-4 WEEKS, NAUSEA, DIZZINESS, CONSTIPATION, DIARRHEA. HX OF STOMACH ULCERS, BLOOD SUGAR PER SQUAD 348. -- HX FL X3, COPD TECHNIQUE: Single AP portable view of the chest. COMPARISON: Comparison is made with prior study dated March 26, 2019. FINDINGS: There are now with evidence of increased linear markings in the left parahilar region. This may represent atelectasis and/or early infiltrate. Follow-up is recommended. Since prior study, the left basilar atelectasis has cleared. There is no demonstrated pleural abnormality. Normal size heart. Normal mediastinum and alden. Normal visualized pulmonary arteries. There is atherosclerotic tortuosity of the aortic arch and descending thoracic aorta. Normal visualized thoracic spine. There is degenerative osteoarthritis of the bilateral shoulders. There is no demonstrated abnormality of the visualized soft tissue structures of the upper abdomen. RAD/Chest 1 View (Portable) IMPRESSION: Increasing markings in the left perihilar region. Follow-up is recommended. Electronically Signed: Manuelito Silva, at 15:52 EST , Service support ,
--- NOTE | 2019-04-04 15:42 | ED.VISSUMM ---
- ER Visit Summary Date of Service: 04/04/19 Chief Complaint: Abdominal pain History of Present Illness: The patient is a 53 F presenting with abdominal pain. Patient states this has been ongoing for the past 3 weeks. She complains of left upper and left lower quadrant abdominal pain. She has intermittent diarrhea and constipation. She has had subjective fever. She has had a nonproductive cough. She was admitted to the hospital 2 weeks ago for similar complaints. She has history of previous appendectomy, cholecystectomy, gastric bypass. Physical Examination: Vitals are stable. Patient is afebrile. Alert no acute distress. HEENT exam is unremarkable. Neck is supple. Lungs are clear and equal bilaterally. Heart is regular rate and rhythm. Abdomen is soft left upper and left lower quadrant tenderness with no rebound or guarding Extremities are unremarkable. Skin is warm and dry. Remainder of exam is unremarkable. Emergency Department Course and Treatment: Patient was given Dilaudid, Zofran. Chest x-ray shows increased linear markings in the left parahilar region. This may represent atelectasis and/or early infiltrate. CBC is unremarkable other than white count 14.0. Chemistries shows sodium 133, potassium 5.3, hemolyzed, glucose 325. Lipase is normal. CT abdomen pelvis shows hepatomegaly. Severe coronary artery disease. No acute findings or change since prior. On reevaluation, patient is resting comfortably. She is given prescription for doxycycline. Advised to follow-up with her primary care physician. Advised return to ED for worsening complaints. Disposition: Discharged home Impression: Abdominal pain, early pneumonia This note was generated with [employer] dictation software. It may contain incorrect words, spelling, and punctuation that were not noted in review of the chart prior to signing ED Disposition - Plan for ED Patient: Instructions: ABDOMINAL PAIN, Unknown Cause, (Female) Prescriptions: Doxycycline 100 mg PO BID #20 cap Prescription Printed Hydrocodone Bitart/Apap 5-325 [Mcdade 5MG-325MG] 1 tab PO Q6H PRN PRN 3 Days #10 tab PRN Reason: Pain Prescription Printed Referrals: Janel Taylor MD [Primary Care Provider] -
[2019-04-04] MEDS: Ondansetron 4 MG/2 ML Vial IV (15:48)
[2019-04-04] MEDS: 0.9% Normal Saline 1,000 ML 1000 ML IV (15:48)
[2019-04-04] MEDS: HYDROmorphone 0.5 MG/0.5 ML SYRINGE IV ×2 (15:49→16:44)
[2019-04-04 16:02] LABS: Absolute Neutrophil Count 10.2 X10^3/uL (2.0-7.7); Basophil# 0.15 X10^3/uL; Basophil% 1.1 % (0-1); Eosinophil# 0.39 X10^3/uL; Eosinophils% 2.8 % (0-5); Hematocrit 44.1 % (37-47); Hemoglobin 14.9 g/dL (12.0-15.0); Lymphocyte % 13.6 % (19-41); Mean Corp Hgb Conc 33.8 g/dL (32-36); Mean Corpuscular Hgb 30.3 pg (27.0-32.0); Mean Corpuscular Volume 89.8 fL (81-99); Mean Platelet Vol. 10.2 fl (6.2-12.0); Monocyte# 1.31 X10^3/uL; Monocyte% 9.4 % (0-10); NRBC Flagged by Analyzer 0 % (0-5); Neutrophil # 10.19 X10^3/uL (2.7-7.7); Neutrophil % 72.7 % (47-70); Platelet Count 307 K/mm3 (150-450); RBC Distribution Width CV 12.4 % (11.6-14.6); RBC Distribution Width SD 40.9 fl (35.1-43.9); Red Blood Count 4.91 M/mm3 (4.2-5.4)
[2019-04-04 16:18] LABS: ALB/GLOB Ratio 0.8 RATIO (0.9-2.4); AST(SGOT) 30 U/L (15-37); Alanine Aminotransfer ALT/SGPT 38 U/L (13-56); Albumin, Serum 3.3 g/dL (3.2-5.0); Alkaline Phosphatase 212 U/L (45-117); Anion Gap 4 (5-15); BUN 10 mg/dL (7-18); BUN/Creat Ratio 9.9 RATIO (10-20); Calcium,Total 10.1 mg/dL (8.5-10.1); Chloride 102 mmol/L (98-107); Creatinine, Serum 1.01 mg/dL (0.55-1.02); EST Glomerular Filtration Rate 61 mL/min (>60); Est Glom Filt Rate - Afr Amer 74 mL/min (>60); Estimated Creatinine Clearance 53.29 ml/min; Globulin 4.4 g/dL (2.2-4.2); Glucose 325 mg/dL (74-106); Lipase 113 U/L (73-393); Potassium 5.3 mmol/L (3.5-5.1); Protein, Total 7.7 g/dL (6.4-8.2); Sodium Level 133 mmol/L (136-145)
[2019-04-04] MEDS: proMETHazine 25 MG/ML Syringe 6.25 MG IV (16:44)
[2019-04-04 17:02] LABS: Mucous, Urine 0 SEEN /hpf (<or=2+); Red Blood Cells-Urine 0 SEEN /hpf (0-5); White Blood Cells 0 SEEN /hpf (0-5)
[2019-04-04 17:05] LABS: Color, Urine Yellow (Yellow); Glucose, Dipstick 1000 mg/dl (Normal); Ketone-Dipstick Negative (Negative); Leukocyte Esterase-Dipstick Negative /ul (Negative); Nitrite-Dipstick Negative (Negative); Occult Blood-Urine Negative /ul (Negative); Protein-Dipstick Negative (Negative); Urine Bilirubin Dipstick Negative (Negative); Urine Clarity Clear (Clear); Urine Urobilinogen Normal (Normal); Urine pH 6.5 (5.0 - 8.0)
[2019-04-04 17:13] LABS: Bacteria RARE /hpf (None Seen); Squamous Epithelial Cells - UA 0-5 SEEN /hpf (5-10)
[2019-04-04 17:20] VITALS: BP 138/86; PULSE 78; RESP 18; O2SAT 91
[2019-04-04 17:48] VITALS: O2SAT 89
--- NOTE | 2019-04-04 18:18 | DCINST.ED_ITS ---
ED Disposition - Plan for ED Patient: Instructions: ABDOMINAL PAIN, Unknown Cause, (Female) Prescriptions: Doxycycline 100 mg PO BID #20 capsule Hydrocodone Bitart/Apap 5-325 [Rena Lara 5MG-325MG] 1 tablet PO Q6H PRN PRN 3 Days #10 tablet PRN Reason: Pain Referrals: Janel Taylor MD [Primary Care Provider] -
[2019-04-04 18:41] VITALS: BP 144/76; RESP 15
[2019-04-04] MEDS: Doxycycline 100 MG CAPSULE PO (18:41)
== END 2019-04-04 18:42 | disposition home or self-care (01) ==
PROVIDERS: Emergency Provider Emergency Medicine; PCP Family Medicine
DX: R10.32 Left lower quadrant pain (principal); R10.12 Left upper quadrant pain; J44.0 Chronic obstructive pulmonary disease with (acute) lower respiratory infection; J18.9 Pneumonia, unspecified organism; K59.00 Constipation, unspecified; R19.7 Diarrhea, unspecified; I25.10 Atherosclerotic heart disease of native coronary artery without angina pectoris; E11.9 Type 2 diabetes mellitus without complications; I10 Essential (primary) hypertension; G47.33 Obstructive sleep apnea (adult) (pediatric); F20.9 Schizophrenia, unspecified; Z72.0 Tobacco use; Z98.84 Bariatric surgery status; Z87.19 Personal history of other diseases of the digestive system; Z90.49 Acquired absence of other specified parts of digestive tract
CPT/HCPCS: 71045; 74177; 80053; 81001; 83690; 85025; 96361; 96374; 96375; 96376; 99285; J7030; Q9967; A4216; J2405

== ENCOUNTER 2019-05-02 13:05 | Inpatient (IN) | payer MEDICARE, SELFPAY ==
[2019-05-02] VITALS (11 sets, daily range): BP systolic 118–155; BP diastolic 68–81; PULSE 70–96; RESP 14–20; TEMP 36.1–37.2; O2SAT 94–97; BMI 44.1; BMI 43.7; BMI 43.8
--- NOTE | 2019-05-02 13:22 | EKG12_ITS ---
Test Reason : SOB Blood Pressure : / mmHG Vent. Rate : 097 BPM Atrial Rate : 097 BPM P-R Int : 136 ms QRS Dur : 080 ms QT Int : 350 ms P-R-T Axes : 055 028 015 degrees QTc Int : 444 ms Normal sinus rhythm Cannot rule out Inferior infarct , age undetermined Cannot rule out Anterior infarct , age undetermined Abnormal ECG Confirmed by MIGUEL TAFOYA, MOY ([id number]), assignment desk editor MARTHA SCOTT ([id number]) on 05/06/2019 8:51:38 AM Referred By: Monica Barragan Confirmed By:PALOMA RIVERA MD
--- NOTE | 2019-05-02 13:25 | RAD_ITS ---
EXAM DESCRIPTION: PORTABLE AP CHEST CLINICAL HISTORY: 53 years Female, INCREASED COUGH AND SOB WITH EXERTION -- HX ID X3, CARDIAC STENTS, COPD INCREASED COUGH AND SOB WITH EXERTION -- HX ID X3, CARDIAC STENTS, COPD COMPARISON: Previous chest obtained on 04/04/2019 FINDINGS: The thorax is intact. The heart and mediastinum appear to be within normal limits. The lungs appear to be well areated without evidence of pneumonic consolidation or pleural effusion. RAD/Chest 1 View (Portable) IMPRESSION: Normal portable chest. Electronically Signed: Pelon Sams, at 13:54 EST Tel , Service support ,
[2019-05-02] MEDS: Ipratropium/Albuterol Sulfate 3 ML AMPUL.NEB INHALATION ×3 (13:45→22:52)
[2019-05-02 13:48] LABS: Absolute Lymphocyte Count 1.27 X10^3/uL (0.83-4.51); Absolute Neutrophil Count 10.4 X10^3/uL (2.0-7.7); Basophil# 0.13 X10^3/uL; Eosinophil# 0.15 X10^3/uL; Eosinophils% 1.2 % (0-5); Hematocrit 41.8 % (37-47); Hemoglobin 14.3 g/dL (12.0-15.0); Lymphocyte # 1.27 X10^3/ul (4.0); Lymphocyte % 9.8 % (19-41); Mean Corp Hgb Conc 34.2 g/dL (32-36); Mean Corpuscular Hgb 30.2 pg (27.0-32.0); Mean Corpuscular Volume 88.2 fL (81-99); Mean Platelet Vol. 10.6 fl (6.2-12.0); Monocyte# 0.94 X10^3/uL; Monocyte% 7.3 % (0-10); NRBC Flagged by Analyzer 0 % (0-5); Neutrophil # 10.38 X10^3/uL (2.7-7.7); Neutrophil % 80.2 % (47-70); Platelet Count 258 K/mm3 (150-450); RBC Distribution Width CV 12.8 % (11.6-14.6); RBC Distribution Width SD 41.4 fl (35.1-43.9); Red Blood Count 4.74 M/mm3 (4.2-5.4); White Blood Count 12.9 K/mm3 (4.4-11.0)
[2019-05-02] MEDS: 0.9% Normal Saline 1,000 ML 1000 ML IV (13:53)
[2019-05-02] MEDS: Ondansetron 4 MG/2 ML Vial IV (13:53)
[2019-05-02 14:04] LABS: Anion Gap 10 (5-15); BUN 8 mg/dL (7-18); BUN/Creat Ratio 6.1 RATIO (10-20); Calcium,Total 9.9 mg/dL (8.5-10.1); Chloride 95 mmol/L (98-107); Creatinine, Serum 1.31 mg/dL (0.55-1.02); EST Glomerular Filtration Rate 45 mL/min (>60); Est Glom Filt Rate - Afr Amer 55 mL/min (>60); Estimated Creatinine Clearance 41.08 ml/min; Glucose 659 mg/dL (74-106); Potassium 4.1 mmol/L (3.5-5.1); Sodium Level 130 mmol/L (136-145)
[2019-05-02] MEDS: Insulin Lispro 100 UNIT/ML INSULN.PEN 15 UNIT SC (14:30)
--- NOTE | 2019-05-02 14:38 | ED.DCSUM_ITS ---
- ER Visit Summary Date of Service: 05/02/19 Chief Complaint: [Shortness of breath and cough] History of Present Illness: The patient is a 53 F [presents the emergency department with symptoms that started yesterday. Patient states that 2 days ago she cleaned her house dusting vacuuming and since then she is not felt well. Patient denies any fever. She denies any sputum production. Patient has vomited 3 times. She denies any diarrhea. She complains of nausea. Patient has history of COPD, coronary artery disease, diabetes, hypertension, schizophrenia, and depression. Patient states that she has not been checking her blood sugars and takes nothing for blood sugar. Patient denies recent travel or surgery.] Physical Examination: [HEENT-PERRLA, EOMI. Cranial nerves II through XII grossly intact. TMs clear. Mucous membranes moist. No adenopathy. Cardiovascular-regular rate and rhythm without murmur or ectopy Lungs-bilaterally with expiratory wheezes throughout. No significant tachypnea. No accessory muscle use or retractions. Abdomen-normoactive bowel sounds, soft, nontender, no rebound or rigidity, no peritoneal signs. Extremities-intact ?4, normal range of motion, normal pulses, atraumatic] Test Results: [CBC with differential white count 12.9, hemoglobin 14, hematocrit 42, platelet 258. Chemistries unremarkable. Blood glucose was 659. Troponin was less than 0.15. Influenza screen was negative. Chest x-ray showed nothing acute.] Emergency Department Course and Treatment: [Patient was given a DuoNeb aerosol. Patient was started on Solu-Medrol 125 mg IV. Patient was given Zofran 4 mg IV. Patient continued complaint of nausea and was given Phenergan 12.5 mg IV. Patient was given subcu insulin lispro 15 units.] Treatment Plan: [Admit for suspected COPD exacerbation and hyperglycemia] Disposition: [Admit] Impression: [COPD exacerbation Hyperglycemia] This note was generated with [employer] dictation software. It may contain incorrect words, spelling, and punctuation that were not noted in review of the chart prior to signing ED Disposition - Plan for ED Patient: Referrals: Janel Taylor MD [Primary Care Provider] -
[2019-05-02] MEDS: MethylPREDNISolone 125 MG/2 ML Vial IV (15:28)
[2019-05-02] MEDS: proMETHazine 25 MG/ML Syringe 12.5 MG IV (15:48)
[2019-05-02 16:06] LABS: Bedside Glucose 422 mg/dL (70-110)
--- NOTE | 2019-05-02 16:34 | HP.PCM_ITS ---
Problem List (1) Acute and chronic respiratory failure with hypoxia Status: Acute (2) Cataract Status: Chronic (3) Hyperglycemia Status: Acute (4) Stage 2 moderate COPD by GOLD classification Status: Chronic (5) PND (post-nasal drip) Status: Inactive (6) HTN (hypertension) Status: Chronic Qualifiers: (7) Peptic ulcer Status: Chronic (8) Bloody stool Status: Inactive (9) Chronic neutrophilia Status: Chronic (10) Iron deficiency anemia following bariatric surgery Status: Chronic (11) Osteoarthritis Status: Chronic (12) Morbid obesity Status: Chronic (13) Type 2 diabetes mellitus Status: Chronic Qualifiers: (14) Schizophrenia Status: Chronic Qualifiers: (15) Hip osteoarthritis Status: Chronic Comment: with chronic pain-right hip (16) Iron deficiency anemia due to dietary causes Status: Chronic Comment: exact cause of iron def anemia unknown-felt likely secondary to past history gastric bypass- although chronic blood loss etiology a possibility (has never had colonoscopy)- further workup including hemoccult stool is recommended (17) Morbid obesity with BMI of 45.0-49.9, adult Status: Chronic (18) Pulmonary hypertension Status: Chronic (19) Chronic narcotic use Status: Chronic (20) Depression Status: Chronic Qualifiers: (21) Gastroesophageal reflux disease Status: Chronic Qualifiers: (22) Parathyroid abnormality Status: Chronic (23) History of PTCA Status: Chronic (24) Vitamin D deficiency Status: Chronic (25) Hyperlipidemia Status: Chronic Qualifiers: (26) Thyroid nodule Status: Chronic Comment: deemed to be benign. (27) Benign essential hypertension Status: Chronic (28) CAD (coronary artery disease) Status: Chronic Qualifiers: (29) RACHEL (obstructive sleep apnea) Status: Chronic Comment: 17/13 cm of water (30) Spinal stenosis of lumbar region at multiple levels Status: Chronic (31) Tobacco abuse Status: Chronic (32) COPD (chronic obstructive pulmonary disease) with emphysema Status: Chronic Qualifiers: History of Present Illness Date of Admission: 05/02/19 Chief Complaint: Shortness of breath, cough. The patient is a 53 year old F who presents emergency room due to shortness of breath and cough. She denies fever, chills. Complains of harsh cough, nonproductive. Also reports intermittent nausea, vomiting. Denies diarrhea. Patient states she chronically wears supplemental oxygen with exertion. She follows with Dr. Willoughby, pulmonary medicine. She denies exposure to sick contacts. Patient reports her symptoms began 2 days ago and have been worsening since that time. She has a past medical history of PE, COPD with chronic hypoxic respiratory failure, peptic ulcer disease, CAD with history of PCI x5, chronic pain syndrome, hypertension, hyperlipidemia, iron deficiency anemia, morbid obesity, tobacco use, type 2 diabetes mellitus, schizophrenia, anxiety, depression, RACHEL. Past Medical History Past Medical History (Chronic Problems): Chronic Problems (Last Reviewed 01/17/19 @ 14:28 by Rosanna Hampton NP-C) Cataract (Chronic) Stage 2 moderate COPD by GOLD classification (Chronic) HTN (hypertension) (Chronic) Peptic ulcer (Chronic) Chronic neutrophilia (Chronic) Iron deficiency anemia following bariatric surgery (Chronic) Osteoarthritis (Chronic) Morbid obesity (Chronic) Type 2 diabetes mellitus (Chronic) Schizophrenia (Chronic) Hip osteoarthritis (Chronic) with chronic pain-right hip Iron deficiency anemia due to dietary causes (Chronic) exact cause of iron def anemia unknown-felt likely secondary to past history gastric bypass- although chronic blood loss etiology a possibility (has never had colonoscopy)-further workup including hemoccult stool is recommended Morbid obesity with BMI of 45.0-49.9, adult (Chronic) Pulmonary hypertension (Chronic) Chronic narcotic use (Chronic) Depression (Chronic) Gastroesophageal reflux disease (Chronic) Parathyroid abnormality (Chronic) History of PTCA (Chronic) Vitamin D deficiency (Chronic) Hyperlipidemia (Chronic) Thyroid nodule (Chronic) deemed to be benign. Benign essential hypertension (Chronic) CAD (coronary artery disease) (Chronic) RACHEL (obstructive sleep apnea) (Chronic) 17/13 cm of water Spinal stenosis of lumbar region at multiple levels (Chronic) Tobacco abuse (Chronic) COPD (chronic obstructive pulmonary disease) with emphysema (Chronic) Medical History: Medical History (Last Reviewed 01/17/19 @ 14:28 by Rosanna Hampton NP-C) HTN (hypertension) (Chronic) I10 Peptic ulcer (Chronic) K27.9 Bloody stool (Inactive) K92.1 Chronic neutrophilia (Chronic) D72.828 Iron deficiency anemia following bariatric surgery (Chronic) D50.9 Osteoarthritis (Chronic) M19.90 Morbid obesity (Chronic) E66.01 Type 2 diabetes mellitus (Chronic) E11.9 Schizophrenia (Chronic) F20.9 Hip osteoarthritis (Chronic) M16.9 with chronic pain-right hip Iron deficiency anemia due to dietary causes (Chronic) D50.8 exact cause of iron def anemia unknown-felt likely secondary to past history gastric bypass- although chronic blood loss etiology a possibility (has never had colonoscopy)-further workup including hemoccult stool is recommended Morbid obesity with BMI of 45.0-49.9, adult (Chronic) E66.01, Z68.42 Pulmonary hypertension (Chronic) I27.2 Chronic narcotic use (Chronic) F11.90 Depression (Chronic) F32.9 Gastroesophageal reflux disease (Chronic) K21.9 Parathyroid abnormality (Chronic) E21.5 Vitamin D deficiency (Chronic) E55.9 Hyperlipidemia (Chronic) E78.5 Thyroid nodule (Chronic) E04.1 deemed to be benign. Benign essential hypertension (Chronic) I10 CAD (coronary artery disease) (Chronic) I25.10 RACHEL (obstructive sleep apnea) (Chronic) G47.33 17/13 cm of water Spinal stenosis of lumbar region at multiple levels (Chronic) M48.06 Tobacco abuse (Chronic) Z72.0 COPD (chronic obstructive pulmonary disease) with emphysema (Chronic) J43.9 History of pulmonary embolism Z86.711 Allergies amoxicillin Allergy (Verified 05/02/19 13:12) Itching erythromycin base Allergy (Verified 05/02/19 13:12) Unknown methadone Allergy (Verified 05/02/19 13:12) Itching metolazone Allergy (Verified 05/02/19 13:12) Unknown Penicillins Allergy (Verified 05/02/19 13:12) Hives Sulfa (Sulfonamide Antibiotics) Allergy (Verified 05/02/19 13:12) Hives clarithromycin [From Biaxin] Adverse Reaction (Verified 05/02/19 13:12) Nausea ibuprofen Adverse Reaction (Verified 05/02/19 13:12) Other 3 BLEEDING ULCURS morphine Adverse Reaction (Verified 05/02/19 13:12) Other HEADACHE Home Medications: Ambulatory Orders Medication Instructions Recorded Atorvastatin Calcium [Lipitor] 80 mg PO QHS 08/22/15 Clopidogrel Bisulfate [Plavix] 75 mg PO QHS 08/22/15 Metoprolol(XL)Succ [Toprol Xl 50 mg PO DAILY 08/22/15 (Beta Trino)] Nitroglycerin 0.4 mg SL PRN PRN 11/08/16 Duloxetine Hcl [Cymbalta] 120 mg PO DAILY 01/16/17 amlodipine 10 mg tablet 10 mg PO BID tab 05/02/17 potassium chloride 10 mEq 10 meq PO DAILY #60 tab 06/16/17 tablet,extended release(part/cryst) Pregabalin [Lyrica] 75 mg PO TID 03/08/18 Risperidone 4 mg PO QHS 03/08/18 Tizanidine HCl 6 mg PO TID PRN PRN 03/08/18 traZODone [Desyrel] 200 mg PO QHS 03/08/18 Buspirone HCl 30 mg PO BID 04/13/18 Sucralfate [Carafate] 1 gm PO 4X/DAY 08/16/18 Acetaminophen [Tylenol] 500 mg PO Q6H PRN PRN 11/20/18 Furosemide [Lasix] 20 mg PO DAILY 11/20/18 Lisinopril 20 mg PO QHS 11/20/18 Mirabegron [Myrbetriq] 25 mg PO DAILY 11/20/18 Albuterol Aerosols [Ventolin 2.5 mg INHALATION Q4HWA.RT 05/02/19 Aerosols] Apixaban [Eliquis] 5 mg PO BID 05/02/19 Fluticasone/Salmeterol [Advair Hfa 2 puff INHALATION DAILY 05/02/19 230-21 Mcg Inhaler] Hydrocodone/Acetaminophen [Vicodin 1 tab PO TID 05/02/19 Hp 10-300 mg Tablet] Montelukast [Singulair] 10 mg PO QHS 05/02/19 Omeprazole 40 mg PO DAILY 05/02/19 Tiotropium [place] [Spiriva 2 puff INHALATION DAILY 05/02/19 Respimat] Surgical History: Surgical History (Last Reviewed 05/02/19 @ 18:03 by ERROL Lunsford) History of PTCA (Chronic) Z98.61 History of appendectomy Z98.890, Z90.49 History of carpal tunnel surgery of left wrist Z98.890 History of cholecystectomy Z98.890, Z90.49 History of gastric bypass Z98.84 History of tonsillectomy Z98.890, Z90.89 history of carpal tunnel release left wrist 2018 history of right hip surgery Surgical History: appendectomy, cholecystectomy, tonsillectomy, - - Right lower extremity surgery x3 as well as bone grafting, appendectomy, cholecystectomy, gastric bypass, hernia repairs, hip replacement, tonsillectomy. 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 Lives: Alone Smoking Status: Current every day smoker Tobacco Use: Cigarettes Alcohol: None Drugs: None - *Family History Sibling Family History: Family History (Last Reviewed 05/02/19 @ 18:03 by ERROL Lunsford) Mother Heart disease Cancer Father Hypertension Arthritis Hyperlipemia Grandmother Breast cancer Heart disease Grandfather Heart disease History Items: Hypertension Paternal Family History: Family History (Last Reviewed 05/02/19 @ 18:03 by ERROL Lunsford) Mother Heart disease Cancer Father Hypertension Arthritis Hyperlipemia Grandmother Breast cancer Heart disease Grandfather Heart disease History Items: High Cholesterol, Heart Disease, Hypertension Maternal Family History: Family History (Last Reviewed 05/02/19 @ 18:03 by ERROL Lunsford) Mother Heart disease Cancer Father Hypertension Arthritis Hyperlipemia Grandmother Breast cancer Heart disease Grandfather Heart disease History Items: Cancer, Heart Disease Review of Systems Constitutional: Denies: Chills, Fever, Weight Change HEENT: Denies: Head Aches, Sinus Congestion, Sinus Drainage Cardiovascular: Denies: Chest Pain, Palpitations Respiratory: Reports: Cough, Shortness of Breath, Wheezing Gastrointestinal: Denies: Abdominal Pain, Nausea, Vomiting Genitourinary: Denies: Dysuria Musculoskeletal: Denies: Joint Pain, Joint Tenderness Skin: Denies: Rash, Wounds Neurological: Denies: Numbness, Tingling, Focal weakness Psychiatric: Reports: Anxiety, Depression Hematologic/ Lymphatic: Denies: Easy Bruising, Easy Bleeding VTE Information - Inpt Only VTE Present on Admission: No VTE Mechan Device Prophylaxis: None VTE Pharm Prophylaxis ordered?: No Reason prophylaxis not ordered:: Treatment Not Indicated - Already on anticoagulation - Physical Exam Vitals/I&O's: Vital Signs Temp Pulse Resp BP Pulse Ox 97 F L 89 16 118/69 97 05/02/19 15:59 05/02/19 15:59 05/02/19 15:59 05/02/19 15:59 05/02/19 15:59 Oxygen Flow Rate (L/min) 2 Oxygen Delivery Method Nasal Cannula Weight: 249 lb 3.2 oz Body Mass Index (BMI) 44.1 Finger Stick Blood Glucose 422 Intake and Output for Last 24 Hours 04/30/19 05/01/19 05/02/19 23:59 23:59 23:59 Intake Total 999 / 999 Balance 1000 / 999 General: Alert, Oriented x3, Cooperative HEENT: Atraumatic, PERRLA, EOMI, Normocephalic Oral: Dry Mucosa Neck: Supple, No JVD, Negative Carotid Bruits Lungs: Diminished, Wheezes Cardiovascular: Regular rate, Regular Rhythm, Normal S1, Normal S2, No murmurs Abdomen: Bowel Sounds Present, Soft, Non Tender, Non-Distended, Obese Extremities: No clubbing, No cyanosis, No edema Skin: No rashes, No breakdown Musculoskeletal: No Tenderness to Palpation of Joints or Extremities Neurological: Cranial nerves II-XII grossly intact, Neuro grossly intact Psych/Mental Status: Normal Affect, Appropriate Microbiology Past 72 Hours 05/02/19 13:55 Mucosa - Nose Influenza Types A,B Direct FA (KATHY) - Final Laboratory Results 05/02/19 13:35: WBC 12.9 H, RBC 4.74, Hgb 14.3, Hct 41.8, MCV 88.2, MCH 30.2, MCHC 34.2, RDW Std Deviation 41.4, RDW Coeff of Kaycee 12.8, Plt Count 258, MPV 10.6, Immature Gran % (Auto) 0.500, Neut % (Auto) 80.2 H, Lymph % (Auto) 9.8 L, [place] % (Auto) 7.3, Eos % (Auto) 1.2, Baso % (Auto) 1.0, Absolute Neuts (auto) 10 .4 H, Absolute Lymphs (auto) 1.27, Nucleated RBC % 0 05/02/19 13:35: Sodium 130 L, Potassium 4.1, Chloride 95 L, Carbon Dioxide 25.0, Anion Gap 10, BUN 8, Creatinine 1.31 H, Estim Creat Clear Calc 41.08, Est GFR (MDRD) Af Amer 55 L, Est GFR (MDRD) Non-Af 45 L, BUN/Creatinine Ratio 6.1 L, Glucose 659 H*, Calcium 9.9, Troponin I < 0.015 05/02/19 15:58: POC Glucose 422 H Assessment/Plan All Active Problems (Last Reviewed 01/17/19 @ 14:28 by Rosanna Hampton NP-Nathen) Acute and chronic respiratory failure with hypoxia (Acute) Hyperglycemia (Acute) Diarrhea (Resolved) Hypokalemia (Resolved) 1. Acute exacerbation of COPD with chronic hypoxic respiratory failure-chest x- ray without acute process. Patient wears supplemental oxygen with exertion only. Continue supplement oxygen to maintain O2 at or above 90%. Walking pulse ox prior to discharge. Follows with Dr. Willoughby, pulmonary medicine. Albuterol and DuoNeb aerosols. IV Solu-Medrol. Negative for influenza. Check respiratory panel. Send sputum for culture. 2. Type 2 diabetes mellitus, uncontrolled with significant hyperglycemia on admission-patient not currently on regimen. Check hemoglobin A1c. Lantus 20 units twice daily. Accu-Cheks with sliding scale insulin and 8 units Humalog scheduled with meals. 3. Acute kidney injury-secondary to dehydration as a result of nausea, vomiting related to viral illness. IV fluids. PRN antiemetics. 4. CAD status post PCI x5-continue Eliquis, Plavix, statin, lisinopril, metoprolol. 5. History of PE-on anticoagulation with Eliquis. 6. History of peptic ulcer disease/GERD-continue omeprazole regimen. 7. Chronic pain syndrome-continue home Lyrica, tizanidine regimen. PRN pain regimen. 8. Hypertension-continue amlodipine, Lasix, lisinopril, metoprolol. 9. Hyperlipidemia-continue statin regimen. 10. Iron deficiency anemia-stable, trend CBC. 11. Tobacco dependence-encourage cessation. 12. Schizophrenia/anxiety/depression-continue home BuSpar, Cymbalta, Risperdal and trazodone regimen. 13. RACHEL-continue CPAP nightly. DVT prophylaxis-Eliquis This patient was seen by LEANN LunsfordC under the supervision of Dr. Barragan.
[2019-05-02 17:15] LABS: Bedside Glucose 359 mg/dL (70-110)
[2019-05-02] MEDS: Sucralfate 1 GM Tablet PO ×2 (17:17→22:19)
[2019-05-02] MEDS: 0.9% Normal Saline 1,000 ML 125 ML IV (17:17)
[2019-05-02] MEDS: Glucerna Shake 120 ML LIQUID PO (17:40)
[2019-05-02] MEDS: Insulin Lispro 100 UNIT/ML INSULN.PEN SC ×2 (17:41→22:21)
[2019-05-02] MEDS: Insulin Lispro 100 UNIT/ML INSULN.PEN 8 UNIT SC (17:42)
[2019-05-02 17:47] LABS: Hemoglobin A1c 11.7 % (4.2-6.3)
[2019-05-02] MEDS: tiZANidine HCl 2 MG Tablet 6 MG PO (19:33)
[2019-05-02] MEDS: oxyCODONE 5 MG Tablet PO ×2 (19:33→23:51)
[2019-05-02] MEDS: guaiFENesin 10 ML UDC (200MG/10ML) 20 ML PO (19:35)
[2019-05-02] MEDS: levoFLOXacin IV 500 MG/100 ML BAG 100 MG IV (22:17)
[2019-05-02] MEDS: busPIRone 15 MG TABLET 30 MG PO (22:18)
[2019-05-02] MEDS: RisperiDONE 2 MG Tablet 4 MG PO (22:19)
[2019-05-02] MEDS: Atorvastatin Calcium 80 MG Tablet PO (22:19)
[2019-05-02] MEDS: Clopidogrel Bisulfate 75 MG Tablet PO (22:19)
[2019-05-02] MEDS: APIXABAN 5 MG TABLET PO (22:19)
[2019-05-02] MEDS: Montelukast 10 MG Tablet PO (22:19)
[2019-05-02] MEDS: Pregabalin 75 MG Capsule PO (22:19)
[2019-05-02] MEDS: traZODone 100 MG Tablet 200 MG PO (22:20)
[2019-05-02 23:25] LABS: Bedside Glucose 355 mg/dL (70-110)
[2019-05-03] VITALS (12 sets, daily range): BP systolic 116–135; BP diastolic 58–70; PULSE 60–84; RESP 12–20; TEMP 36.4–36.5; O2SAT 60–98
[2019-05-03] MEDS: tiZANidine HCl 2 MG Tablet 6 MG PO ×3 (01:40→16:14)
[2019-05-03] MEDS: 0.9% Normal Saline 1,000 ML 125 ML IV ×2 (01:45→09:56)
[2019-05-03 06:04] LABS: Absolute Lymphocyte Count 0.78 X10^3/uL (0.83-4.51); Basophil# 0.06 X10^3/uL; Basophil% 0.3 % (0-1); Hematocrit 39.9 % (37-47); Hemoglobin 13.4 g/dL (12.0-15.0); Lymphocyte # 0.78 X10^3/ul (4.0); Lymphocyte % 4.3 % (19-41); Mean Corp Hgb Conc 33.6 g/dL (32-36); Mean Corpuscular Hgb 29.6 pg (27.0-32.0); Mean Corpuscular Volume 88.3 fL (81-99); Mean Platelet Vol. 10.8 fl (6.2-12.0); Monocyte# 0.26 X10^3/uL; Monocyte% 1.4 % (0-10); NRBC Flagged by Analyzer 0 % (0-5); Neutrophil # 16.95 X10^3/uL (2.7-7.7); Neutrophil % 93.4 % (47-70); Platelet Count 229 K/mm3 (150-450); RBC Distribution Width CV 12.8 % (11.6-14.6); RBC Distribution Width SD 41.1 fl (35.1-43.9); Red Blood Count 4.52 M/mm3 (4.2-5.4); White Blood Count 18.2 K/mm3 (4.4-11.0)
[2019-05-03 06:26] LABS: Anion Gap 6 (5-15); BUN 11 mg/dL (7-18); BUN/Creat Ratio 13.1 RATIO (10-20); Calcium,Total 9.1 mg/dL (8.5-10.1); Chloride 99 mmol/L (98-107); Creatinine, Serum 0.84 mg/dL (0.55-1.02); EST Glomerular Filtration Rate 75 mL/min (>60); Est Glom Filt Rate - Afr Amer 91 mL/min (>60); Estimated Creatinine Clearance 64.07 ml/min; Glucose 415 mg/dL (74-106); Potassium 4.9 mmol/L (3.5-5.1); Sodium Level 132 mmol/L (136-145)
[2019-05-03] MEDS: Ipratropium/Albuterol Sulfate 3 ML AMPUL.NEB INHALATION ×4 (06:42→19:18)
[2019-05-03] MEDS: Pregabalin 75 MG Capsule PO ×3 (06:51→21:34)
[2019-05-03] MEDS: oxyCODONE 5 MG Tablet PO ×4 (06:51→21:34)
[2019-05-03] MEDS: Sucralfate 1 GM Tablet PO ×4 (06:51→21:23)
[2019-05-03 07:05] LABS: Bedside Glucose 463 mg/dL (70-110)
[2019-05-03 07:40] LABS: Glucose 446 mg/dL (74-106)
[2019-05-03] MEDS: busPIRone 15 MG TABLET 30 MG PO ×2 (08:08→21:22)
[2019-05-03] MEDS: Mirabegron 25 MG TAB.ER.24H PO (08:08)
[2019-05-03] MEDS: APIXABAN 5 MG TABLET PO ×2 (08:09→21:23)
[2019-05-03] MEDS: Metoprolol(XL)Succ 50 MG Tablet PO (08:09)
[2019-05-03] MEDS: DULoxetine Hcl 60 MG Capsule 120 MG PO (08:09)
[2019-05-03] MEDS: Pantoprazole Sodium 40 MG Tablet PO (08:09)
[2019-05-03] MEDS: amLODIPine 10 MG Tablet PO (08:10)
[2019-05-03] MEDS: Insulin Lispro 100 UNIT/ML INSULN.PEN SC ×4 (08:10→21:51)
[2019-05-03] MEDS: guaiFENesin 10 ML UDC (200MG/10ML) 20 ML PO (08:26)
[2019-05-03] MEDS: Acetaminophen 325 MG Tablet 650 MG PO (08:27)
[2019-05-03] MEDS: Ondansetron 4 MG/2 ML Vial IV ×2 (08:28→16:22)
[2019-05-03] MEDS: 0.9% Saline Lock 10 ML Syringe IV ×4 (08:28→21:22)
--- NOTE | 2019-05-03 08:32 | NURSING ---
Lab back up was 446, gave 16 units of Novolog and then will recheck in one hour.
--- NOTE | 2019-05-03 09:58 | NURSING ---
This nurse rechecked BS [phone] will call for lab back up.
--- NOTE | 2019-05-03 10:01 | NURSING ---
Sharon from Lab aware of stat lab glucose.
[2019-05-03 10:42] LABS: Glucose 465 mg/dL (74-106)
[2019-05-03] MEDS: Insulin Lispro 100 UNIT/ML INSULN.PEN 20 UNIT SC (10:54)
[2019-05-03 11:10] LABS: Bedside Glucose > 500 mg/dL (70-110)
--- NOTE | 2019-05-03 11:30 | CASEMGMT ---
PAMELA ALVAREZ Face to Face with patient for initial transition planning/care coordination assessment. PAMELA ALVAREZ introduced self and role at [facility]. Patient sitting in chair, alert and oriented. Patient willing to participate in assessment and is able to answer all questions appropriately. Care providers, pharmacy, and demographics verified. Patient wishes to discharge home and states that a DENTAL TECHNICIAN sees her twice weekly at home and denies need for HHC. Patient inquired about aide services, PAMELA ALVAREZ offered to provided list of private duty. Patient states that she cannot afford and has been in contact with insurance. Patient states she has no further needs or concerns at this time. CM to follow for discharge planning needs that may arise. PCP: Claudia Specialists: Case, vp medical; Eric, hematology; Adama, psychiatrist Preferred Pharmacy: [facility] on weekends Insurance: [facility] Prescription Benefit: Yes Living Will/HPOA: yes, sister Jessica Payan LNOK: sisters Living Arrangements: Patient states she lives alone in 5th floor apt with elevator. Patient states she is independent but needs help with showering and cleaning because she gets to exerted and has trouble breathing. PAMELA ALVAREZ asked if patient sponge bathes and she states she just doesn't bathe at all. Patient states that she gets exhausted from sponge bathing as well. Transportation: neighbor DME/HHC: Patient states she has shower chair, raised toilet, walker, rollator, oxygen 2lpm with ambulation through [employer], Bipap that she doesn't wear because adaptor for oxygen is not correct, and nebulizer machine. PAMELA ALVAREZ called [employer] and asked if they could service her Bipap and provide education regarding bipap to patient at discharge, [employer] to follow-up. PAMELA ALVAREZ updated SW regarding patient requiring assistance for ADLs and financial concerns. Disposition Plan: Patient to discharge home with resources, family support, and follow-up plans in place. Will monitor for need for continuous oxygen at home. Bianca BERKOWITZ, RN, CM
[2019-05-03 12:36] LABS: Bedside Glucose 403 mg/dL (70-110)
[2019-05-03] MEDS: Glucerna Shake 120 ML LIQUID PO (12:37)
--- NOTE | 2019-05-03 12:59 | CASEMGMT ---
Living will and Health Care POA are currently in pt EMR. HCPOA naming sister Jessica Payan. David Guerra GLOVE FORMER
--- NOTE | 2019-05-03 13:41 | PCM.PROGNOTE ---
<Meseret Delgado - Last Filed: 05/03/19 13:46> Subjective: Patient seen and examined. Denies significant improvement in shortness of breath and cough. Cough remains nonproductive. Denies fever, chills. - Physical Exam Vitals/I&O's: Vital Signs Temp Pulse Resp BP Pulse Ox 97.5 F L 62 20 H 122/58 H 96 05/03/19 10:00 05/03/19 10:00 05/03/19 11:23 05/03/19 10:00 05/03/19 10:00 Oxygen Flow Rate (L/min) 2 Oxygen Delivery Method Nasal Cannula Weight: 246 lb 15.989 oz Body Mass Index (BMI) 43.7 Finger Stick Blood Glucose 422 Intake and Output for Last 24 Hours 05/01/19 05/02/19 05/03/19 23:59 23:59 23:59 Intake Total 1725 / 1725 3633.33 / 3633.33 Output Total 300 / 300 1400 / 1400 Balance 1425 / 1425 2233.33 / 2233.33 General: Alert, Oriented x3, Cooperative HEENT: Atraumatic, PERRLA, EOMI, Normocephalic Neck: Supple, No JVD, Negative Carotid Bruits Lungs: Diminished, Wheezes Cardiovascular: Regular rate, Regular Rhythm, Normal S1, Normal S2, No murmurs Abdomen: Bowel Sounds Present, Soft, Non Tender, Non-Distended, Obese Extremities: No clubbing, No cyanosis, No edema, Capillary Refill Less than 3 Seconds Skin: No rashes, No breakdown Musculoskeletal: No Tenderness to Palpation of Joints or Extremities Neurological: Cranial nerves II-XII grossly intact, Neuro grossly intact Psych/Mental Status: Normal Affect, Appropriate Microbiology Past 72 Hours 05/02/19 19:30 Mucosa - Nasopharyngeal Respiratory Panel (PCR) - Final 05/02/19 13:55 Mucosa - Nose Influenza Types A,B Direct FA (KATHY) - Final Laboratory Results 05/02/19 13:35: WBC 12.9 H, RBC 4.74, Hgb 14.3, Hct 41.8, MCV 88.2, MCH 30.2, MCHC 34.2, RDW Std Deviation 41.4, RDW Coeff of Kaycee 12.8, Plt Count 258, MPV 10.6, Immature Gran % (Auto) 0.500, Neut % (Auto) 80.2 H, Lymph % (Auto) 9.8 L, Converse % (Auto) 7.3, Eos % (Auto) 1.2, Baso % (Auto) 1.0, Absolute Neuts (auto) 10.4 H, Absolute Lymphs (auto) 1.27, Nucleated RBC % 0 05/02/19 13:35: Sodium 130 L, Potassium 4.1, Chloride 95 L, Carbon Dioxide 25.0, Anion Gap 10, BUN 8, Creatinine 1.31 H, Estim Creat Clear Calc 41.08, Est GFR (MDRD) Af Amer 55 L, Est GFR (MDRD) Non-Af 45 L, BUN/Creatinine Ratio 6.1 L, Glucose 659 H*, Calcium 9.9, Troponin I < 0.015 05/02/19 13:35: Hemoglobin A1c 11.7 H 05/02/19 15:58: POC Glucose 422 H 05/02/19 17:06: POC Glucose 359 H 05/02/19 22:16: POC Glucose 355 H 05/03/19 05:15: Sodium 132 L, Potassium 4.9, Chloride 99, Carbon Dioxide 27.0, Anion Gap 6, BUN 11, Creatinine 0.84, Estim Creat Clear Calc 64.07, Est GFR (MDRD) Af Amer 91, Est GFR (MDRD) Non-Af 75, BUN/Creatinine Ratio 13.1, Glucose 415 H, Calcium 9.1 05/03/19 05:45: WBC 18.2 H, RBC 4.52, Hgb 13.4, Hct 39.9, MCV 88.3, MCH 29.6, MCHC 33.6, RDW Std Deviation 41.1, RDW Coeff of Kaycee 12.8, Plt Count 229, MPV 10.8, Immature Gran % (Auto) 0.600, Neut % (Auto) 93.4 H, Lymph % (Auto) 4.3 L, Converse % (Auto) 1.4, Eos % (Auto) 0.0, Baso % (Auto) 0.3, Absolute Neuts (auto) 17.0 H, Absolute Lymphs (auto) 0.78 L, Nucleated RBC % 0 05/03/19 06:50: POC Glucose 463 H* 05/03/19 07:20: Glucose 446 H 05/03/19 09:55: POC Glucose > 500 H* 05/03/19 10:10: Glucose 465 H* 05/03/19 12:30: POC Glucose 403 H Current Medications Acetaminophen (Tylenol) 650 mg PO Q6H PRN PRN PRN Reason: Pain Score 1-10/Temp > 100.7 F Last Admin: 05/03/19 08:27 Dose: 650 mg Documented by: Albuterol Sulfate (Ventolin Aerosols) 2.5 mg INHALATION Q2H PRN PRN PRN Reason: Shortness of Breath/Wheezing Albuterol/Ipratropium (Duoneb) 3 ml INHALATION Q4H.RT [facility] Last Admin: 05/03/19 11:23 Dose: 3 ml Documented by: Amlodipine Besylate (Norvasc) 10 mg PO DAILY [facility] Last Admin: 05/03/19 08:10 Dose: 10 mg Documented by: Apixaban (Eliquis) 5 mg PO BID [facility] Last Admin: 05/03/19 08:09 Dose: 5 mg Documented by: Atorvastatin Calcium (Lipitor) 80 mg PO QHS [facility] Last Admin: 05/02/19 22:19 Dose: 80 mg Documented by: Buspirone HCl (Buspar) 30 mg PO BID [facility] Last Admin: 05/03/19 08:08 Dose: 30 mg Documented by: Clopidogrel Bisulfate (Plavix) 75 mg PO QHS [facility] Last Admin: 05/02/19 22:19 Dose: 75 mg Documented by: Duloxetine HCl (Cymbalta) 120 mg PO DAILY [facility] Last Admin: 05/03/19 08:09 Dose: 120 mg Documented by: Glucagon () 1 mg IM .X1 PRN PRN Reason: Hypoglycemia Guaifenesin (Robitussin) 20 ml PO Q4H PRN PRN PRN Reason: COUGH Last Admin: 05/03/19 08:26 Dose: 20 ml Documented by: Sodium Chloride () 1,000 mls @ 125 mls/hr IV .Q8H [facility] Last Infusion: 05/03/19 11:44 Dose: 125 mls/hr Documented by: Dextrose (Dextrose 10%-Water) 250 mls @ 999 mls/hr IV .Q16M PRN; Protocol PRN Reason: HYPOGLYCEMIA Levofloxacin (Levaquin Iv) 500 mg in 100 mls @ 100 mls/hr IV QHS [facility] Last Infusion: 05/02/19 23:17 Dose: Infused Documented by: Insulin Glargine (Lantus (Bkc)) 30 units SC BID [facility] Insulin Human Lispro (Humalog Kwikpen (Bkc)) 0 unit SC ACHS [facility]; Protocol Last Admin: 05/03/19 12:31 Dose: 14 u Documented by: Insulin Human Lispro (Humalog Kwikpen (Bkc)) 15 unit SC TIDAC [facility] Methylprednisolone (Solu-Medrol) 40 mg IV Q12 [facility] Metoprolol Succinate (Toprol Xl (Beta Trino)) 50 mg PO DAILY [facility] Last Admin: 05/03/19 08:09 Dose: 50 mg Documented by: Miconazole Nitrate (Monistat 7) 1 applic VAGINAL QHS [facility] Mirabegron (Myrbetriq) 25 mg PO DAILY [facility] Last Admin: 05/03/19 08:08 Dose: 25 mg Documented by: Montelukast Sodium (Singulair) 10 mg PO QHS [facility] Last Admin: 05/02/19 22:19 Dose: 10 mg Documented by: Nicotine (Nicoderm Cq (Pbkc)) 21 mg TRANSDERM. DAILY [facility] Last Admin: 05/03/19 08:10 Dose: 21 mg Documented by: Nutritional Formula (Lactose Free) (Glucerna Shake) 120 ml PO TIDCM [facility] Last Admin: 05/03/19 12:37 Dose: 120 ml Documented by: Ondansetron HCl (Zofran) 4 mg IV Q8H PRN PRN PRN Reason: NAUSEA/VOMITING Last Admin: 05/03/19 08:28 Dose: 4 mg Documented by: Oxycodone HCl (Oxyir) 5 mg PO Q4H PRN PRN PRN Reason: Pain Score 4-10/10 Last Admin: 05/03/19 12:37 Dose: 5 mg Documented by: Pantoprazole Sodium (Protonix) 40 mg PO DAILY [facility] Last Admin: 05/03/19 08:09 Dose: 40 mg Documented by: Pregabalin (Lyrica) 75 mg PO TID [facility] Last Admin: 05/03/19 06:51 Dose: 75 mg Documented by: Risperidone (Risperdal) 4 mg PO QHS [facility] Last Admin: 05/02/19 22:19 Dose: 4 mg Documented by: Sodium Chloride () 10 - 40 ml IV UD PRN PRN Reason: SALINE FLUSH Last Admin: 05/03/19 11:41 Dose: 10 ml Documented by: Sucralfate (Carafate) 1 gm PO 1HR_ACHS [facility] Last Admin: 05/03/19 11:02 Dose: 1 gm Documented by: Throat Lozenges (Cepacol Sore Throat Lozenge) 1 lozenge MUCOUS MEM Q2H PRN PRN PRN Reason: SORE THROAT Tizanidine HCl (Zanaflex) 6 mg PO TID PRN PRN Last Admin: 05/03/19 08:27 Dose: 6 mg Documented by: Trazodone HCl (Desyrel) 200 mg PO QHS [facility] Last Admin: 05/02/19 22:20 Dose: 200 mg Documented by: Medical Necessity - Tobacco Use Smoking Status: Current every day smoker Tobacco Use: Cigarettes Assessment/Plan All Active Problems (Last Reviewed 01/17/19 @ 14:28 by Rosanna Hampton, TICO-C) Acute and chronic respiratory failure with hypoxia (Acute) Hyperglycemia (Acute) Diarrhea (Resolved) Hypokalemia (Resolved) 1. Acute exacerbation of chronic COPD with chronic hypoxic respiratory failure-chest x-ray without acute process. Patient wears supplemental oxygen with exertion only. Continue supplement oxygen to maintain O2 at or above 90%. Walking pulse ox prior to discharge. Follows with Dr. Willoughby, pulmonary medicine. Albuterol and DuoNeb aerosols. IV Solu-Medrol. Negative for influenza. Respiratory panel negative. Send sputum for culture. 2. Type 2 diabetes mellitus, uncontrolled with significant hyperglycemia on admission-patient not currently on regimen. Hemoglobin A1c 11.7%. Lantus increased to 30 units twice daily. Accu-Cheks with sliding scale insulin and 15 units Humalog scheduled with meals. 3. Acute kidney injury-secondary to dehydration as a result of nausea, vomiting related to viral illness. Resolved with IV fluids. PRN antiemetics. 4. CAD status post PCI x5-continue Eliquis, Plavix, statin, lisinopril, metoprolol. 5. History of PE-on anticoagulation with Eliquis. 6. History of peptic ulcer disease/GERD-continue omeprazole regimen. 7. Chronic pain syndrome-continue home Lyrica, tizanidine regimen. PRN pain regimen. 8. Hypertension-continue amlodipine, Lasix, lisinopril, metoprolol. 9. Hyperlipidemia-continue statin regimen. 10. Iron deficiency anemia-stable, trend CBC. 11. Tobacco dependence-encourage cessation. 12. Schizophrenia/anxiety/depression-continue home BuSpar, Cymbalta, Risperdal and trazodone regimen. 13. RACHEL-continue CPAP nightly. DVT prophylaxis-Ralph This patient was seen by ERROL Lunsford under the supervision of Dr. Talavera. <Jovani Talavera - Last Filed: 05/03/19 14:16> Subjective: Patient admitted with cough, shortness of breath. Cough is mainly dry. Patient also has high blood sugar, 490, 502. Insulin dose adjusted accordingly. Lantus dose increased to 20 units twice daily. Patient also complaining of mild vaginal itching. - Physical Exam Vitals/I&O's: Vital Signs Temp Pulse Resp BP Pulse Ox 97.5 F L 62 20 H 122/58 H 96 05/03/19 10:00 05/03/19 10:00 05/03/19 11:23 05/03/19 10:00 05/03/19 10:00 Oxygen Flow Rate (L/min) 2 Oxygen Delivery Method Nasal Cannula Weight: 246 lb 15.989 oz Body Mass Index (BMI) 43.7 Finger Stick Blood Glucose 422 Intake and Output for Last 24 Hours 05/01/19 05/02/19 05/03/19 23:59 23:59 23:59 Intake Total 1725 / 1725 3633.33 / 3633.33 Output Total 300 / 300 1400 / 1400 Balance 1425 / 1425 2233.33 / 2233.33 General: Alert, Oriented x3, Cooperative HEENT: Atraumatic, PERRLA, EOMI, Normocephalic Neck: Supple, No JVD, Negative Carotid Bruits Lungs: Diminished, Rhonchi, Short of Breath, Tachypneic, Wheezes Cardiovascular: Regular rate, No murmurs Abdomen: Bowel Sounds Present, Soft, Non Tender, Non-Distended Extremities: No edema, Capillary Refill Less than 3 Seconds Skin: No rashes, No breakdown Musculoskeletal: No Tenderness to Palpation of Joints or Extremities, Arthritic Changes Neurological: Cranial nerves II-XII grossly intact Psych/Mental Status: Normal Affect, Appropriate Microbiology Past 72 Hours 05/02/19 19:30 Mucosa - Nasopharyngeal Respiratory Panel (PCR) - Final 05/02/19 13:55 Mucosa - Nose Influenza Types A,B Direct FA (KATHY) - Final Laboratory Results 05/02/19 13:35: Hemoglobin A1c 11.7 H 05/02/19 15:58: POC Glucose 422 H 05/02/19 17:06: POC Glucose 359 H 05/02/19 22:16: POC Glucose 355 H 05/03/19 05:15: Sodium 132 L, Potassium 4.9, Chloride 99, Carbon Dioxide 27.0, Anion Gap 6, BUN 11, Creatinine 0.84, Estim Creat Clear Calc 64.07, Est GFR (MDRD) Af Amer 91, Est GFR (MDRD) Non-Af 75, BUN/Creatinine Ratio 13.1, Glucose 415 H, Calcium 9.1 05/03/19 05:45: WBC 18.2 H, RBC 4.52, Hgb 13.4, Hct 39.9, MCV 88.3, MCH 29.6, MCHC 33.6, RDW Std Deviation 41.1, RDW Coeff of Kaycee 12.8, Plt Count 229, MPV 10.8, Immature Gran % (Auto) 0.600, Neut % (Auto) 93.4 H, Lymph % (Auto) 4.3 L, Converse % (Auto) 1.4, Eos % (Auto) 0.0, Baso % (Auto) 0.3, Absolute Neuts (auto) 17.0 H, Absolute Lymphs (auto) 0.78 L, Nucleated RBC % 0 05/03/19 06:50: POC Glucose 463 H* 05/03/19 07:20: Glucose 446 H 05/03/19 09:55: POC Glucose > 500 H* 05/03/19 10:10: Glucose 465 H* 05/03/19 12:30: POC Glucose 403 H Current Medications Acetaminophen (Tylenol) 650 mg PO Q6H PRN PRN PRN Reason: Pain Score 1-10/Temp > 100.7 F Last Admin: 05/03/19 08:27 Dose: 650 mg Documented by: Albuterol Sulfate (Ventolin Aerosols) 2.5 mg INHALATION Q2H PRN PRN PRN Reason: Shortness of Breath/Wheezing Albuterol/Ipratropium (Duoneb) 3 ml INHALATION Q4H.RT [facility] Last Admin: 05/03/19 11:23 Dose: 3 ml Documented by: Amlodipine Besylate (Norvasc) 10 mg PO DAILY [facility] Last Admin: 05/03/19 08:10 Dose: 10 mg Documented by: Apixaban (Eliquis) 5 mg PO BID [facility] Last Admin: 05/03/19 08:09 Dose: 5 mg Documented by: Atorvastatin Calcium (Lipitor) 80 mg PO QHS [facility] Last Admin: 05/02/19 22:19 Dose: 80 mg Documented by: Buspirone HCl (Buspar) 30 mg PO BID [facility] Last Admin: 05/03/19 08:08 Dose: 30 mg Documented by: Clopidogrel Bisulfate (Plavix) 75 mg PO QHS [facility] Last Admin: 05/02/19 22:19 Dose: 75 mg Documented by: Duloxetine HCl (Cymbalta) 120 mg PO DAILY [facility] Last Admin: 05/03/19 08:09 Dose: 120 mg Documented by: Glucagon () 1 mg IM .X1 PRN PRN Reason: Hypoglycemia Guaifenesin (Robitussin) 20 ml PO Q4H PRN PRN PRN Reason: COUGH Last Admin: 05/03/19 08:26 Dose: 20 ml Documented by: Dextrose (Dextrose 10%-Water) 250 mls @ 999 mls/hr IV .Q16M PRN; Protocol PRN Reason: HYPOGLYCEMIA Levofloxacin (Levaquin Iv) 500 mg in 100 mls @ 100 mls/hr IV QHS [facility] Last Infusion: 05/02/19 23:17 Dose: Infused Documented by: Insulin Glargine (Lantus (Bkc)) 30 units SC BID [facility] Insulin Human Lispro (Humalog Kwikpen (Bkc)) 0 unit SC ACHS [facility]; Protocol Last Admin: 05/03/19 12:31 Dose: 14 u Documented by: Insulin Human Lispro (Humalog Kwikpen (Bkc)) 15 unit SC TIDAC [facility] Methylprednisolone (Solu-Medrol) 40 mg IV Q12 [facility] Metoprolol Succinate (Toprol Xl (Beta Trino)) 50 mg PO DAILY [facility] Last Admin: 05/03/19 08:09 Dose: 50 mg Documented by: Miconazole Nitrate (Monistat 7) 1 applic VAGINAL QHS [facility] Mirabegron (Myrbetriq) 25 mg PO DAILY [facility] Last Admin: 05/03/19 08:08 Dose: 25 mg Documented by: Montelukast Sodium (Singulair) 10 mg PO QHS [facility] Last Admin: 05/02/19 22:19 Dose: 10 mg Documented by: Nicotine (Nicoderm Cq (Pbkc)) 21 mg TRANSDERM. DAILY [facility] Last Admin: 05/03/19 08:10 Dose: 21 mg Documented by: Ondansetron HCl (Zofran) 4 mg IV Q8H PRN PRN PRN Reason: NAUSEA/VOMITING Last Admin: 05/03/19 08:28 Dose: 4 mg Documented by: Oxycodone HCl (Oxyir) 5 mg PO Q4H PRN PRN PRN Reason: Pain Score 4-10/10 Last Admin: 05/03/19 12:37 Dose: 5 mg Documented by: Pantoprazole Sodium (Protonix) 40 mg PO DAILY [facility] Last Admin: 05/03/19 08:09 Dose: 40 mg Documented by: Pregabalin (Lyrica) 75 mg PO TID [facility] Last Admin: 05/03/19 06:51 Dose: 75 mg Documented by: Risperidone (Risperdal) 4 mg PO QHS [facility] Last Admin: 05/02/19 22:19 Dose: 4 mg Documented by: Sodium Chloride () 10 - 40 ml IV UD PRN PRN Reason: SALINE FLUSH Last Admin: 05/03/19 11:41 Dose: 10 ml Documented by: Sucralfate (Carafate) 1 gm PO 1HR_ACHS [facility] Last Admin: 05/03/19 11:02 Dose: 1 gm Documented by: Throat Lozenges (Cepacol Sore Throat Lozenge) 1 lozenge MUCOUS MEM Q2H PRN PRN PRN Reason: SORE THROAT Tizanidine HCl (Zanaflex) 6 mg PO TID PRN PRN Last Admin: 05/03/19 08:27 Dose: 6 mg Documented by: Trazodone HCl (Desyrel) 200 mg PO QHS [facility] Last Admin: 05/02/19 22:20 Dose: 200 mg Documented by: Assessment/Plan This patient was seen in conjunction with Meseret DOSHI. I have independently interviewed and examined the patient and reviewed pertinent history, examination findings, laboratory and plan of management. I have reviewed the note and agree with the documented findings with the few additional points. In brief, patient is admitted for COPD exacerbation with chronic hypoxic respiratory failure. Patient wears 2 L on exertion. 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 She uses CPAP at night. On bronchodilator, IV Solu-Medrol, incentive's and chest physiotherapy. Respiratory panel negative. Type 2 diabetes mellitus with uncontrolled hyperglycemia: Lantus and Humalog insulin dose increased. Acute kidney injury: Resolved with IV fluids. Miconazole vaginal cream ordered. Rest of the comorbidities as mentioned above. Includes coronary artery disease, PE, peptic ulcer disease/GERD, chronic pain syndrome, hypertension, dyslipidemia, and eczema and tobacco dependence. RACHEL on CPAP I have discussed my assessment with ENGINE BOSSMeseret and orders have been reviewed. Code Visit Inpatient E&M: 47706 Subs Hosp L3
--- NOTE | 2019-05-03 15:50 | NURSING ---
walked in [place] with oxygen tank and this nurses assistance.
[2019-05-03] MEDS: guaiFENesin 1,200 MG Tablet 1200 MG PO (16:15)
[2019-05-03] MEDS: Insulin Lispro 100 UNIT/ML INSULN.PEN 15 UNIT SC (16:22)
[2019-05-03 16:46] LABS: Bedside Glucose 326 mg/dL (70-110)
--- NOTE | 2019-05-03 17:05 | CASEMGMT ---
Social Work Met with patient to discuss DC plans and resources needed. Pt expressed needing assistance with personal care, bathing, housekeeping, getting fatigued easily. Explained Palliative Medicine to assist with symptom and pain management and reduce hospital readmissions. Pt agreeable to referral. Palliative Screen completed, referral made to [facility]. Explained CCN - pt agreeable to referral as pt is new on insulin - referral made. Discussed skilled HHC - pt agreeable. Provided list to pt - [facility] - referral made. Explained delivery aide services but they are private pay. Pt states she cannot afford to pay privately, but she has [place] Medicaid and pays for an additional plan through [employer] that offers paid [employer] services. Pt gave permission to to contact insurance to verify and set up those services. Contacted [facility] and got pt set up with services - a rep will contact the pt 05/05 to schedule appt. Insurance will pay for up to 4 hours/day for 15 days per calendar year - it is a one-time program per year. Pt understandable of program. Inquired about services from the counseling center - pt does not have a C.M. but has a psychiatrist for medication management. Pt is requesting counseling services. [facility] - appt made for 05/05 at 1 pm with Rosa. Pt appreciative of assistance. MURPHY FrankW
[2019-05-03] MEDS: traZODone 100 MG Tablet 200 MG PO (21:23)
[2019-05-03] MEDS: Atorvastatin Calcium 80 MG Tablet PO (21:24)
[2019-05-03] MEDS: Montelukast 10 MG Tablet PO (21:24)
[2019-05-03] MEDS: RisperiDONE 2 MG Tablet 4 MG PO (21:25)
[2019-05-03] MEDS: Clopidogrel Bisulfate 75 MG Tablet PO (21:26)
[2019-05-03] MEDS: Miconazole-7 Nitrate Cream 1 APPLIC VAGINAL (21:34)
[2019-05-03] MEDS: Nicotine Polacrilex 2 MG GUM PO (21:35)
[2019-05-03] MEDS: levoFLOXacin IV 500 MG/100 ML BAG 100 MG IV (21:46)
[2019-05-03 22:51] LABS: Bedside Glucose 252 mg/dL (70-110)
[2019-05-04] VITALS (8 sets, daily range): BP systolic 123–143; BP diastolic 48–61; PULSE 57–74; RESP 18–20; TEMP 36.3–36.4; O2SAT 91–95
[2019-05-04] MEDS: Ondansetron 4 MG/2 ML Vial IV ×2 (00:34→08:22)
[2019-05-04] MEDS: tiZANidine HCl 2 MG Tablet 6 MG PO ×2 (00:34→08:21)
[2019-05-04] MEDS: 0.9% Saline Lock 10 ML Syringe IV ×2 (00:34→08:20)
[2019-05-04] MEDS: oxyCODONE 5 MG Tablet PO ×2 (03:09→08:22)
[2019-05-04] MEDS: Sucralfate 1 GM Tablet PO ×2 (06:18→11:40)
[2019-05-04] MEDS: Pregabalin 75 MG Capsule PO (06:18)
[2019-05-04] MEDS: Nicotine Polacrilex 2 MG GUM PO (06:19)
[2019-05-04] MEDS: Acetaminophen 325 MG Tablet 650 MG PO (06:27)
[2019-05-04] MEDS: Ipratropium/Albuterol Sulfate 3 ML AMPUL.NEB INHALATION ×2 (06:47→11:07)
[2019-05-04] MEDS: Insulin Lispro 100 UNIT/ML INSULN.PEN 15 UNIT SC ×2 (08:01→11:45)
[2019-05-04] MEDS: Insulin Lispro 100 UNIT/ML INSULN.PEN SC ×2 (08:01→11:44)
[2019-05-04] MEDS: busPIRone 15 MG TABLET 30 MG PO (08:04)
[2019-05-04] MEDS: Pantoprazole Sodium 40 MG Tablet PO (08:04)
[2019-05-04] MEDS: APIXABAN 5 MG TABLET PO (08:04)
[2019-05-04] MEDS: Metoprolol(XL)Succ 50 MG Tablet PO (08:07)
[2019-05-04] MEDS: Mirabegron 25 MG TAB.ER.24H PO (08:08)
[2019-05-04] MEDS: DULoxetine Hcl 60 MG Capsule 120 MG PO (08:08)
[2019-05-04] MEDS: amLODIPine 10 MG Tablet PO (08:09)
[2019-05-04 08:20] LABS: Bedside Glucose 368 mg/dL (70-110)
[2019-05-04] MEDS: guaiFENesin 1,200 MG Tablet 1200 MG PO (08:22)
--- NOTE | 2019-05-04 11:40 | DCINST_ITS ---
You will use the following diet at home:: Calorie/Carbohydrate Controlled (specify 1200, 1400, etc) Discharge Activity: Return to Normal Activity Call your doctor if you observe: Shortness of breath, Dizziness, Fainting spells, Chest pain Allergies/Adverse Reactions: Allergies amoxicillin Allergy (Verified 05/02/19 13:12) Itching erythromycin base Allergy (Verified 05/02/19 13:12) Unknown methadone Allergy (Verified 05/02/19 13:12) Itching metolazone Allergy (Verified 05/02/19 13:12) Unknown Penicillins Allergy (Verified 05/02/19 13:12) Hives Sulfa (Sulfonamide Antibiotics) Allergy (Verified 05/02/19 13:12) Hives clarithromycin [From Biaxin] Adverse Reaction (Verified 05/02/19 13:12) Nausea ibuprofen Adverse Reaction (Verified 05/02/19 16:39) 3 BLEEDING ULCERS 3 BLEEDING ULCERS morphine Adverse Reaction (Verified 05/02/19 16:39) HEADACHE HEADACHE Medications to take at Discharge Atorvastatin Calcium [Lipitor] 80 mg PO QHS 08/22/15 Clopidogrel Bisulfate [Plavix] 75 mg PO QHS 08/22/15 Metoprolol(XL)Succ [Toprol Xl (Beta Trino)] 50 mg PO DAILY 08/22/15 Nitroglycerin 0.4 mg SL PRN PRN 11/08/16 Duloxetine Hcl [Cymbalta] 120 mg PO DAILY 01/16/17 amlodipine 10 mg tablet 10 mg PO BID tab 05/02/17 potassium chloride 10 mEq tablet,extended release(part/cryst) 10 meq PO DAILY #60 tab 06/16/17 Pregabalin [Lyrica] 75 mg PO TID 03/08/18 Risperidone 4 mg PO QHS 03/08/18 Tizanidine HCl 6 mg PO TID PRN PRN 03/08/18 traZODone [Desyrel] 200 mg PO QHS 03/08/18 Buspirone HCl 30 mg PO BID 04/13/18 Sucralfate [Carafate] 1 gm PO 4X/DAY 08/16/18 Acetaminophen [Tylenol] 500 mg PO Q6H PRN PRN 11/20/18 Furosemide [Lasix] 20 mg PO DAILY 11/20/18 Lisinopril 20 mg PO QHS 11/20/18 Mirabegron [Myrbetriq] 25 mg PO DAILY 11/20/18 Albuterol Aerosols [Ventolin Aerosols] 2.5 mg INHALATION Q4HWA.RT 05/02/19 Apixaban [Eliquis] 5 mg PO BID 05/02/19 Fluticasone/Salmeterol [Advair Hfa 230-21 Mcg Inhaler] 2 puff INHALATION DAILY 05/02/19 Hydrocodone/Acetaminophen [Vicodin Hp 10-300 mg Tablet] 1 tab PO TID 05/02/19 Montelukast [Singulair] 10 mg PO QHS 05/02/19 Omeprazole 40 mg PO DAILY 05/02/19 Tiotropium [place] [Spiriva Respimat] 2 puff INHALATION DAILY 05/02/19 Benzonatate [Tessalon Perle] 100 mg PO TID PRN PRN #20 cap 05/04/19 Guaifenesin [Mucinex] 1,200 mg PO BID #14 tab 05/04/19 Insulin Glargine [Lantus SoloStar Pen] 30 units SUBCUT BID #1 box 05/04/19 Insulin Lispro [Humalog KwikPen] 20 unit SUBCUT TIDAC #1 box 05/04/19 Levofloxacin [Levaquin] 500 mg PO DAILY #4 tab 05/04/19 Pen Needle, Diabetic [Pen [place]] 1 box ACHS #1 box 05/04/19 Prednisone See Taper PO DAILY #30 tab 05/04/19 The following prescriptions were given: Insulin Lispro [Humalog KwikPen] 20 unit SUBCUT TIDAC #1 box Transmission Status: Pending to [facility] Insulin Glargine [Lantus SoloStar Pen] 30 units SUBCUT BID #1 box Transmission Status: Pending to [facility] Levofloxacin [Levaquin] 500 mg PO DAILY #4 tab Transmission Status: Pending to [facility] Guaifenesin [Mucinex] 1,200 mg PO BID #14 tab Transmission Status: Pending to [facility] Pen Needle, Diabetic [Pen [place]] 1 box ACHS #1 box Transmission Status: Pending to [facility] Prednisone See Taper PO DAILY #30 tab Transmission Status: Pending to [facility] Benzonatate [Tessalon Perle] 100 mg PO TID PRN PRN #20 cap PRN Reason: Cough Transmission Status: Pending to [facility] Primary Care Physician: Janel Taylor MD [Primary Care Provider] - Please follow up with your Primary Care Physician in: As scheduled next week Test Results: Test results from this visit will be discussed in further detail at your follow- up appointment, if applicable. Please Follow Up With: Mariama [facility] When: PT/OT/SN/TEMPLE Please Follow Up With: Palliative When: As scheduled Please Follow Up With: [facility] When: As scheduled Please Follow Up With: [facility] When: As scheduled Please Follow Up With: Rosanna Hampton NP-C When: 1-2 Weeks Proposed Discharge Date: 05/04/19
--- NOTE | 2019-05-04 11:49 | PCM.DC.SUM ---
<Meseret Delgado - Last Filed: 05/04/19 11:54> Discharge Date and Diagnosis Date of Admission: 05/02/19 Date of Discharge: 05/04/19 - Primary Discharge Diagnosis 1. Acute exacerbation of chronic COPD with chronic hypoxic respiratory failure 2. Type 2 diabetes mellitus, uncontrolled with significant hyperglycemia on admission 3. Acute kidney injury 4. CAD status post PCI x5 5. History of PE 6. History of peptic ulcer disease/GERD 7. Chronic pain syndrome 8. Hypertension 9. Hyperlipidemia 10. Iron deficiency anemia 11. Tobacco dependence 12. Schizophrenia/anxiety/depression 13. RACHEL - Secondary Discharge Diagnosis Chronic Problems (Last Reviewed 01/17/19 @ 14:28 by Rosanna Hampton NP-C) Cataract (Chronic) Stage 2 moderate COPD by GOLD classification (Chronic) HTN (hypertension) (Chronic) Peptic ulcer (Chronic) Chronic neutrophilia (Chronic) Iron deficiency anemia following bariatric surgery (Chronic) Osteoarthritis (Chronic) Morbid obesity (Chronic) Type 2 diabetes mellitus (Chronic) Schizophrenia (Chronic) Hip osteoarthritis (Chronic) with chronic pain-right hip Iron deficiency anemia due to dietary causes (Chronic) exact cause of iron def anemia unknown-felt likely secondary to past history gastric bypass- although chronic blood loss etiology a possibility (has never had colonoscopy)-further workup including hemoccult stool is recommended Morbid obesity with BMI of 45.0-49.9, adult (Chronic) Pulmonary hypertension (Chronic) Chronic narcotic use (Chronic) Depression (Chronic) Gastroesophageal reflux disease (Chronic) Parathyroid abnormality (Chronic) History of PTCA (Chronic) Vitamin D deficiency (Chronic) Hyperlipidemia (Chronic) Thyroid nodule (Chronic) deemed to be benign. Benign essential hypertension (Chronic) CAD (coronary artery disease) (Chronic) RACHEL (obstructive sleep apnea) (Chronic) 17/13 cm of water Spinal stenosis of lumbar region at multiple levels (Chronic) Tobacco abuse (Chronic) COPD (chronic obstructive pulmonary disease) with emphysema (Chronic) Hospital Course and Treatment Imaging Results: Diagnostic Data Chest X-Ray 05/02/19 13:25 IMPRESSION: Normal portable chest. Electronically Signed: Pelon Sams, at 13:54 EST Tel , Service support , Operations: None, total hip replacement Procedures: None Summary of Care Provided: The patient is a 53 year old F admitted 05/02/2019 due to shortness of breath and cough. 1. Acute exacerbation of chronic COPD with chronic hypoxic respiratory failure-chest x-ray without acute process. Patient wears supplemental oxygen with exertion only. Oxygen currently stable on room air. Follows with Dr. Willoughby, pulmonary medicine. Negative for influenza. Respiratory panel negative. Continue course of Levaquin empirically. Prednisone taper at discharge. Patient was unable to send sputum for sample. Follow-up with pulmonary medicine in 1 to 2 weeks. Social work assisted patient with palliative referral, home health care and [facility] for further assistance at discharge. 2. Type 2 diabetes mellitus, uncontrolled with significant hyperglycemia on admission-patient had not been taking oral or insulin regimen recently prior to discharge. Hemoglobin A1c 11.7%. Lantus increased to 30 units twice daily. 20 units Humalog scheduled with meals. Patient will need close outpatient follow-up for further insulin adjustment and repeat hemoglobin A1c pending further glucose monitoring. 3. Acute kidney injury-secondary to dehydration as a result of nausea, vomiting related to viral illness. Resolved with IV fluids. 4. CAD status post PCI x5-continue Eliquis, Plavix, statin, lisinopril, metoprolol. 5. History of PE-on anticoagulation with Eliquis. 6. History of peptic ulcer disease/GERD-continue omeprazole regimen. 7. Chronic pain syndrome-continue home Lyrica, tizanidine regimen. 8. Hypertension-continue amlodipine, Lasix, lisinopril, metoprolol. 9. Hyperlipidemia-continue statin regimen. 10. Iron deficiency anemia-stable, trend CBC. 11. Tobacco dependence-encourage cessation. 12. Schizophrenia/anxiety/depression-continue home BuSpar, Cymbalta, Risperdal and trazodone regimen. 13. RACHEL-continue CPAP nightly. General: Alert, Oriented x3, Cooperative HEENT: Atraumatic, PERRLA, EOMI, Normocephalic Neck: Supple, No JVD, Negative Carotid Bruits Lungs: Diminished, Wheezes Cardiovascular: Regular rate, Regular Rhythm, Normal S1, Normal S2, No murmurs Abdomen: Bowel Sounds Present, Soft, Non Tender, Non-Distended, Obese Extremities: No clubbing, No cyanosis, No edema, Capillary Refill Less than 3 Seconds Skin: No rashes, No breakdown Musculoskeletal: No Tenderness to Palpation of Joints or Extremities Neurological: Cranial nerves II-XII grossly intact, Neuro grossly intact Psych/Mental Status: Normal Affect, Appropriate Patient seen and examined prior to discharge. Physical assessment as noted above. Patient is stable for discharge with follow up recommendations as noted above. This patient was seen by ERROL Lunsford under the supervision of Dr. Talavera. - Physical Exam Vitals/I&O's: Vital Signs Temp Pulse Resp BP Pulse Ox 97.3 F L 74 20 H 143/61 H 95 05/04/19 08:13 05/04/19 11:07 05/04/19 11:07 05/04/19 08:13 05/04/19 08:13 Oxygen Flow Rate (L/min) 2 Oxygen Delivery Method Room Air Weight: 246 lb 15.989 oz Body Mass Index (BMI) 43.7 Finger Stick Blood Glucose 422 Intake and Output for Last 24 Hours 05/02/19 05/03/19 05/04/19 23:59 23:59 23:59 Intake Total 1725 / 1725 4595.00 / 5049.00 1171 / 1171 Output Total 300 / 300 2000 / 4100 4000 / 4000 Balance 1425 / 1425 2595.00 / 949.00 -2829 / -2829 Microbiology Past 72 Hours 05/02/19 19:30 Mucosa - Nasopharyngeal Respiratory Panel (PCR) - Final 05/02/19 13:55 Mucosa - Nose Influenza Types A,B Direct FA (KATHY) - Final Laboratory Results 05/03/19 12:30: POC Glucose 403 H 05/03/19 16:20: POC Glucose 326 H 05/03/19 21:48: POC Glucose 252 H 05/04/19 07:55: POC Glucose 368 H Current Medications Acetaminophen (Tylenol) 650 mg PO Q6H PRN PRN PRN Reason: Pain Score 1-10/Temp > 100.7 F Last Admin: 05/04/19 06:27 Dose: 650 mg Documented by: Albuterol Sulfate (Ventolin Aerosols) 2.5 mg INHALATION Q2H PRN PRN PRN Reason: Shortness of Breath/Wheezing Albuterol/Ipratropium (Duoneb) 3 ml INHALATION Q4H.RT FORREST Last Admin: 05/04/19 11:07 Dose: 3 ml Documented by: Amlodipine Besylate (Norvasc) 10 mg PO DAILY [facility] Last Admin: 05/04/19 08:09 Dose: 10 mg Documented by: Apixaban (Eliquis) 5 mg PO BID [facility] Last Admin: 05/04/19 08:04 Dose: 5 mg Documented by: Atorvastatin Calcium (Lipitor) 80 mg PO QHS [facility] Last Admin: 05/03/19 21:24 Dose: 80 mg Documented by: Buspirone HCl (Buspar) 30 mg PO BID [facility] Last Admin: 05/04/19 08:04 Dose: 30 mg Documented by: Clopidogrel Bisulfate (Plavix) 75 mg PO QHS [facility] Last Admin: 05/03/19 21:26 Dose: 75 mg Documented by: Duloxetine HCl (Cymbalta) 120 mg PO DAILY [facility] Last Admin: 05/04/19 08:08 Dose: 120 mg Documented by: Glucagon () 1 mg IM .X1 PRN PRN Reason: Hypoglycemia Guaifenesin (Mucinex) 1,200 mg PO BID [facility] Last Admin: 05/04/19 08:22 Dose: 1,200 mg Documented by: Dextrose (Dextrose 10%-Water) 250 mls @ 999 mls/hr IV .Q16M PRN; Protocol PRN Reason: HYPOGLYCEMIA Levofloxacin (Levaquin Iv) 500 mg in 100 mls @ 100 mls/hr IV QHS [facility] Last Infusion: 05/03/19 22:56 Dose: Infused Documented by: Insulin Glargine (Lantus (Bkc)) 30 units SC BID [facility] Last Admin: 05/04/19 08:02 Dose: 30 u Documented by: Insulin Human Lispro (Humalog Kwikpen (Bkc)) 0 unit SC ACHS [facility]; Protocol Last Admin: 05/04/19 11:44 Dose: 9 u Documented by: Insulin Human Lispro (Humalog Kwikpen (Bkc)) 15 unit SC TIDAC [facility] Last Admin: 05/04/19 11:45 Dose: 15 units Documented by: Methylprednisolone (Solu-Medrol) 40 mg IV Q12 [facility] Last Admin: 05/04/19 08:09 Dose: 40 mg Documented by: Metoprolol Succinate (Toprol Xl (Beta Trino)) 50 mg PO DAILY [facility] Last Admin: 05/04/19 08:07 Dose: 50 mg Documented by: Miconazole Nitrate (Monistat 7) 1 applic VAGINAL QHS [facility] Last Admin: 05/03/19 21:34 Dose: 1 applicatio Documented by: Mirabegron (Myrbetriq) 25 mg PO DAILY [facility] Last Admin: 05/04/19 08:08 Dose: 25 mg Documented by: Montelukast Sodium (Singulair) 10 mg PO QHS [facility] Last Admin: 05/03/19 21:24 Dose: 10 mg Documented by: Nicotine (Nicoderm Cq (Pbkc)) 21 mg TRANSDERM. DAILY [facility] Last Admin: 05/04/19 08:08 Dose: 21 mg Documented by: Nicotine Polacrilex (Rugby Nicotine (Bkc)) 2 mg PO Q2H PRN PRN PRN Reason: SMOKING CESSATION Last Admin: 05/04/19 06:19 Dose: 2 mg Documented by: Ondansetron HCl (Zofran) 4 mg IV Q8H PRN PRN PRN Reason: NAUSEA/VOMITING Last Admin: 05/04/19 08:22 Dose: 4 mg Documented by: Oxycodone HCl (Oxyir) 5 mg PO Q4H PRN PRN PRN Reason: Pain Score 4-10/10 Last Admin: 05/04/19 08:22 Dose: 5 mg Documented by: Pantoprazole Sodium (Protonix) 40 mg PO DAILY [facility] Last Admin: 05/04/19 08:04 Dose: 40 mg Documented by: Pregabalin (Lyrica) 75 mg PO TID [facility] Last Admin: 05/04/19 06:18 Dose: 75 mg Documented by: Risperidone (Risperdal) 4 mg PO QHS [facility] Last Admin: 05/03/19 21:25 Dose: 4 mg Documented by: Sodium Chloride () 10 - 40 ml IV UD PRN PRN Reason: SALINE FLUSH Last Admin: 05/04/19 08:20 Dose: 10 ml Documented by: Sucralfate (Carafate) 1 gm PO 1HR_ACHS [facility] Last Admin: 05/04/19 11:40 Dose: 1 gm Documented by: Throat Lozenges (Cepacol Sore Throat Lozenge) 1 lozenge MUCOUS MEM Q2H PRN PRN PRN Reason: SORE THROAT Tizanidine HCl (Zanaflex) 6 mg PO TID PRN PRN Last Admin: 05/04/19 08:21 Dose: 6 mg Documented by: Trazodone HCl (Desyrel) 200 mg PO QHS [facility] Last Admin: 05/03/19 21:23 Dose: 200 mg Documented by: Discharge Diet: Carb Control Diet Discharge Activity: Return to Normal Activity Call your doctor if you observe: Shortness of breath, Dizziness, Fainting spells, Chest pain Home Medications: Medications to take at Discharge Atorvastatin Calcium [Lipitor] 80 mg PO QHS 08/22/15 Clopidogrel Bisulfate [Plavix] 75 mg PO QHS 08/22/15 Metoprolol(XL)Succ [Toprol Xl (Beta Trino)] 50 mg PO DAILY 08/22/15 Nitroglycerin 0.4 mg SL PRN PRN 11/08/16 Duloxetine Hcl [Cymbalta] 120 mg PO DAILY 01/16/17 amlodipine 10 mg tablet 10 mg PO BID tab 05/02/17 potassium chloride 10 mEq tablet,extended release(part/cryst) 10 meq PO DAILY #60 tab 06/16/17 Pregabalin [Lyrica] 75 mg PO TID 03/08/18 Risperidone 4 mg PO QHS 03/08/18 Tizanidine HCl 6 mg PO TID PRN PRN 03/08/18 traZODone [Desyrel] 200 mg PO QHS 03/08/18 Buspirone HCl 30 mg PO BID 04/13/18 Sucralfate [Carafate] 1 gm PO 4X/DAY 08/16/18 Acetaminophen [Tylenol] 500 mg PO Q6H PRN PRN 11/20/18 Furosemide [Lasix] 20 mg PO DAILY 11/20/18 Lisinopril 20 mg PO QHS 11/20/18 Mirabegron [Myrbetriq] 25 mg PO DAILY 11/20/18 Albuterol Aerosols [Ventolin Aerosols] 2.5 mg INHALATION Q4HWA.RT 05/02/19 Apixaban [Eliquis] 5 mg PO BID 05/02/19 Fluticasone/Salmeterol [Advair Hfa 230-21 Mcg Inhaler] 2 puff INHALATION DAILY 05/02/19 Hydrocodone/Acetaminophen [Vicodin Hp 10-300 mg Tablet] 1 tab PO TID 05/02/19 Montelukast [Singulair] 10 mg PO QHS 05/02/19 Omeprazole 40 mg PO DAILY 05/02/19 Tiotropium [place] [Spiriva Respimat] 2 puff INHALATION DAILY 05/02/19 Benzonatate [Tessalon Perle] 100 mg PO TID PRN PRN #20 cap 05/04/19 Guaifenesin [Mucinex] 1,200 mg PO BID #14 tab 05/04/19 Insulin Glargine [Lantus SoloStar Pen] 30 units SUBCUT BID #1 box 05/04/19 Insulin Lispro [Humalog KwikPen] 20 unit SUBCUT TIDAC #1 box 05/04/19 Levofloxacin [Levaquin] 500 mg PO DAILY #4 tab 05/04/19 Pen Needle, Diabetic [Pen Needle] 1 ea MC ACHS 30 Days #1 box 05/04/19 Pen Needle, Diabetic [Pen [place]] 1 box MC ACHS #1 box 05/04/19 Prednisone See Taper PO DAILY #30 tab 05/04/19 Bad tablePrimary Care Physician: Janel Taylor MD [Primary Care Provider] - Please follow up with your Primary Care Physician in: As scheduled next week Please Follow Up With: [facility] When: PT/OT/SN/TEMPLE Please Follow Up With: Palliative When: As scheduled Please Follow Up With: [facility] When: As scheduled Please Follow Up With: [facility] When: As scheduled Please Follow Up With: Rosanna Hampton NP-C When: 1-2 Weeks Disposition: Home with Home Health Minutes spent on discharge:: 35 Patient Condition:: Stable Medical Necessity - Tobacco Use Smoking Status: Current every day smoker Tobacco Use: Cigarettes Meaningful Use Info Meaningful Use Diagnoses (Choose all that apply): None applicable <Jovani Talavera - Last Filed: 05/04/19 12:56> Discharge Date and Diagnosis - Secondary Discharge Diagnosis Chronic Problems (Last Reviewed 01/17/19 @ 14:28 by ERROL Cooper) Cataract (Chronic) Stage 2 moderate COPD by GOLD classification (Chronic) HTN (hypertension) (Chronic) Peptic ulcer (Chronic) Chronic neutrophilia (Chronic) Iron deficiency anemia following bariatric surgery (Chronic) Osteoarthritis (Chronic) Morbid obesity (Chronic) Type 2 diabetes mellitus (Chronic) Schizophrenia (Chronic) Hip osteoarthritis (Chronic) with chronic pain-right hip Iron deficiency anemia due to dietary causes (Chronic) exact cause of iron def anemia unknown-felt likely secondary to past history gastric bypass- although chronic blood loss etiology a possibility (has never had colonoscopy)-further workup including hemoccult stool is recommended Morbid obesity with BMI of 45.0-49.9, adult (Chronic) Pulmonary hypertension (Chronic) Chronic narcotic use (Chronic) Depression (Chronic) Gastroesophageal reflux disease (Chronic) Parathyroid abnormality (Chronic) History of PTCA (Chronic) Vitamin D deficiency (Chronic) Hyperlipidemia (Chronic) Thyroid nodule (Chronic) deemed to be benign. Benign essential hypertension (Chronic) CAD (coronary artery disease) (Chronic) RACHEL (obstructive sleep apnea) (Chronic) 17/13 cm of water Spinal stenosis of lumbar region at multiple levels (Chronic) Tobacco abuse (Chronic) COPD (chronic obstructive pulmonary disease) with emphysema (Chronic) Hospital Course and Treatment Summary of Care Provided: [] This patient was seen in conjunction with MUSEUM SECURITY CHIEF, Meseret. I have independently interviewed and examined the patient and reviewed pertinent history, examination findings, laboratory and plan of management. I have reviewed the note and agree with the documented findings with the few additional points. In brief, patient is 53 y/F admitted for COPD exacerbation with chronic hypoxic respiratory failure. Patient wears 2 L on exertion. 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 She uses CPAP at night. On bronchodilator, IV Solu-Medrol, incentive's and chest physiotherapy. Respiratory panel negative. Type 2 diabetes mellitus with uncontrolled hyperglycemia: Lantus and Humalog insulin dose increased. Glucose were controlled but still elevated. Acute kidney injury: Resolved with IV fluids. Miconazole vaginal cream was ordered. Rest of the comorbidities as mentioned above. Includes coronary artery disease, PE, peptic ulcer disease/GERD, chronic pain syndrome, hypertension, dyslipidemia, and eczema and tobacco dependence. RACHEL on CPAP Patient stated she tried Chantix in the past but has not worked. Here she was given nicotine patch and gum both and it helped her. She further says she cannot afford it is costly either through prescription or [id number]. Discharge medication reconciliation done. Discharge follow-up instructions completed. Discharge process discussed with the patient and all questions were answered to patient's satisfaction. Follow up in [facility] Total time spent, exact 35 minutes on discharge meds reconciliation, examination, coordination of care with nurses and ancillary staff, review of imaging and blood test and discussion with the patient on follow-up instructions I have discussed my assessment with MUSEUM SECURITY CHIEFMeseret and orders have been reviewed. Subjective: No fever or chills. No tachycardia. No hypoxia. Objective: General: Alert, Oriented x3, Cooperative HEENT: Atraumatic, PERRLA, EOMI, Normocephalic Neck: Supple, No JVD, Negative Carotid Bruits Lungs: Diminished, Fine B/L Expiratory Rhonchi, Short of Breath, Cardiovascular: Regular rate, No murmurs Abdomen: Bowel Sounds Present, Soft, Non Tender, Non-Distended Extremities: No edema, Capillary Refill Less than 3 Seconds Skin: No rashes, No breakdown Musculoskeletal: No Tenderness to Palpation of Joints or Extremities, Arthritic Changes Neurological: Cranial nerves II-XII grossly intact Psych/Mental Status: Normal Affect, Appropriate - Physical Exam Vitals/I&O's: Vital Signs Temp Pulse Resp BP Pulse Ox 97.3 F L 74 20 H 143/61 H 91 05/04/19 08:13 05/04/19 11:07 05/04/19 11:07 05/04/19 08:13 05/04/19 11:52 Oxygen Flow Rate (L/min) 2 Oxygen Delivery Method Room Air Weight: 246 lb 15.989 oz Body Mass Index (BMI) 43.7 Finger Stick Blood Glucose 422 Intake and Output for Last 24 Hours 05/02/19 05/03/19 05/04/19 23:59 23:59 23:59 Intake Total 1725 / 1725 4595.00 / 5049.00 1171 / 1171 Output Total 300 / 300 2000 / 4100 4000 / 4000 Balance 1425 / 1425 2595.00 / 949.00 -2829 / -2829 Microbiology Past 72 Hours 05/02/19 19:30 Mucosa - Nasopharyngeal Respiratory Panel (PCR) - Final 05/02/19 13:55 Mucosa - Nose Influenza Types A,B Direct FA (KATHY) - Final Laboratory Results 05/03/19 16:20: POC Glucose 326 H 05/03/19 21:48: POC Glucose 252 H 05/04/19 07:55: POC Glucose 368 H 05/04/19 11:43: POC Glucose 313 H Current Medications Acetaminophen (Tylenol) 650 mg PO Q6H PRN PRN PRN Reason: Pain Score 1-10/Temp > 100.7 F Last Admin: 05/04/19 06:27 Dose: 650 mg Documented by: Albuterol Sulfate (Ventolin Aerosols) 2.5 mg INHALATION Q2H PRN PRN PRN Reason: Shortness of Breath/Wheezing Albuterol/Ipratropium (Duoneb) 3 ml INHALATION Q4H.RT [facility] Last Admin: 05/04/19 11:07 Dose: 3 ml Documented by: Amlodipine Besylate (Norvasc) 10 mg PO DAILY [facility] Last Admin: 05/04/19 08:09 Dose: 10 mg Documented by: Apixaban (Eliquis) 5 mg PO BID [facility] Last Admin: 05/04/19 08:04 Dose: 5 mg Documented by: Atorvastatin Calcium (Lipitor) 80 mg PO QHS [facility] Last Admin: 05/03/19 21:24 Dose: 80 mg Documented by: Buspirone HCl (Buspar) 30 mg PO BID [facility] Last Admin: 05/04/19 08:04 Dose: 30 mg Documented by: Clopidogrel Bisulfate (Plavix) 75 mg PO QHS [facility] Last Admin: 05/03/19 21:26 Dose: 75 mg Documented by: Duloxetine HCl (Cymbalta) 120 mg PO DAILY [facility] Last Admin: 05/04/19 08:08 Dose: 120 mg Documented by: Glucagon () 1 mg IM .X1 PRN PRN Reason: Hypoglycemia Guaifenesin (Mucinex) 1,200 mg PO BID [facility] Last Admin: 05/04/19 08:22 Dose: 1,200 mg Documented by: Dextrose (Dextrose 10%-Water) 250 mls @ 999 mls/hr IV .Q16M PRN; Protocol PRN Reason: HYPOGLYCEMIA Levofloxacin (Levaquin Iv) 500 mg in 100 mls @ 100 mls/hr IV QHS [facility] Last Infusion: 05/03/19 22:56 Dose: Infused Documented by: Insulin Glargine (Lantus (Bkc)) 30 units SC BID [facility] Last Admin: 05/04/19 08:02 Dose: 30 u Documented by: Insulin Human Lispro (Humalog Kwikpen (Bkc)) 0 unit SC ACHS [facility]; Protocol Last Admin: 05/04/19 11:44 Dose: 9 u Documented by: Insulin Human Lispro (Humalog Kwikpen (Bkc)) 15 unit SC TIDAC [facility] Last Admin: 05/04/19 11:45 Dose: 15 units Documented by: Methylprednisolone (Solu-Medrol) 40 mg IV Q12 [facility] Last Admin: 05/04/19 08:09 Dose: 40 mg Documented by: Metoprolol Succinate (Toprol Xl (Beta Trino)) 50 mg PO DAILY [facility] Last Admin: 05/04/19 08:07 Dose: 50 mg Documented by: Miconazole Nitrate (Monistat 7) 1 applic VAGINAL QHS [facility] Last Admin: 05/03/19 21:34 Dose: 1 applicatio Documented by: Mirabegron (Myrbetriq) 25 mg PO DAILY [facility] Last Admin: 05/04/19 08:08 Dose: 25 mg Documented by: Montelukast Sodium (Singulair) 10 mg PO QHS [facility] Last Admin: 05/03/19 21:24 Dose: 10 mg Documented by: Nicotine (Nicoderm Cq (Pbkc)) 21 mg TRANSDERM. DAILY [facility] Last Admin: 05/04/19 08:08 Dose: 21 mg Documented by: Nicotine Polacrilex (Rugby Nicotine (Bkc)) 2 mg PO Q2H PRN PRN PRN Reason: SMOKING CESSATION Last Admin: 05/04/19 06:19 Dose: 2 mg Documented by: Ondansetron HCl (Zofran) 4 mg IV Q8H PRN PRN PRN Reason: NAUSEA/VOMITING Last Admin: 05/04/19 08:22 Dose: 4 mg Documented by: Oxycodone HCl (Oxyir) 5 mg PO Q4H PRN PRN PRN Reason: Pain Score 4-10/10 Last Admin: 05/04/19 08:22 Dose: 5 mg Documented by: Pantoprazole Sodium (Protonix) 40 mg PO DAILY [facility] Last Admin: 05/04/19 08:04 Dose: 40 mg Documented by: Pregabalin (Lyrica) 75 mg PO TID [facility] Last Admin: 05/04/19 06:18 Dose: 75 mg Documented by: Risperidone (Risperdal) 4 mg PO QHS [facility] Last Admin: 05/03/19 21:25 Dose: 4 mg Documented by: Sodium Chloride () 10 - 40 ml IV UD PRN PRN Reason: SALINE FLUSH Last Admin: 05/04/19 08:20 Dose: 10 ml Documented by: Sucralfate (Carafate) 1 gm PO 1HR_ACHS [facility] Last Admin: 05/04/19 11:40 Dose: 1 gm Documented by: Throat Lozenges (Cepacol Sore Throat Lozenge) 1 lozenge MUCOUS MEM Q2H PRN PRN PRN Reason: SORE THROAT Tizanidine HCl (Zanaflex) 6 mg PO TID PRN PRN Last Admin: 05/04/19 08:21 Dose: 6 mg Documented by: Trazodone HCl (Desyrel) 200 mg PO QHS [facility] Last Admin: 05/03/19 21:23 Dose: 200 mg Documented by: Code Visit Inpatient E&M: [id number] Disch Hosp
[2019-05-04 11:51] LABS: Bedside Glucose 313 mg/dL (70-110)
--- NOTE | 2019-05-06 16:01 | CASEMGMT ---
Case Management DC F/u Call: DC Date: 05/04/2019 DC Diagnosis: 1. Acute exacerbation of chronic COPD with chronic hypoxic respiratory failure 2. Type 2 diabetes mellitus, uncontrolled with significant hyperglycemia on admission 3. Acute kidney injury 4. CAD status post PCI x5 5. History of PE 6. History of peptic ulcer disease/GERD 7. Chronic pain syndrome 8. Hypertension 9. Hyperlipidemia 10. Iron deficiency anemia 11. Tobacco dependence 12. Schizophrenia/anxiety/depression 13. RACHEL DC Disposition: Home with [facility] PT/OT/SN/TEMPLE, CCN Referral, Palliative referral, [facility]ing [facility]tr Lace/Strata: 17/06 Called patient listed cell phone on demographics, patient answered, introduced self and role. Patient states feeling SOB with exertion- while cleaning today. Advised to take it easy until f/u with provider. Has an f/u appointment set up with her provider tomorrow. Confirmed is using her home O2 3LPM and her breathing tx. Confirmed filled her medications and had been taking them. States has not heard from anyone yet, This publicity writer provided her with [facility] contact and advised to call them, states missed the call from Palliative and she called back but they did not answer and has not heard back after that- advised to f/u tomorrow. This publicity writer noted per SW note that an appt was made for the Counseling Ctr on 05/05 at 1pm with Rosa- patient states that she was not aware and this publicity writer advised to call Counseling Ctr and re-schedule. Aware CCN will most likely get in contact once C is completed. States understanding. Denies any questions/concerns with medications, ACI or f/u. Thanked patient for choosing care at [facility] and conversation ended. David Kirk, PAMELACM
--- NOTE | 2019-05-07 12:51 | CASEMGMT ---
Received message from Prashant at [facility] who states referral information was not received. Discussed with Meseret DOSHI who states home care services were to be provided at discharge. Confirmed with Soraya that pt was verbally accepted by [facility] and information was faxed on 05/03/2019. Order, PT/OT evaluations, DC instructions and summary faxed to Prashant at . Voicemail left for Prashant at requesting a return call. Lauren Andrew RN
== END 2019-05-04 13:30 | disposition home or self-care (01) | DRG 191 ==
LOC: ED 13:46 → MS3 16:02
PROVIDERS: Nurse Practitioner Family; Student in an Organized Health Care Education/Training Program; Admitting Provider Family Medicine; Emergency Provider Emergency Medicine; PCP Family Medicine; Referring Provider Family Medicine; Visit Provider Internal Medicine
DX: J44.1 Chronic obstructive pulmonary disease with (acute) exacerbation (principal); J96.11 Chronic respiratory failure with hypoxia; N17.9 Acute kidney failure, unspecified; B34.9 Viral infection, unspecified; E87.1 Hypo-osmolality and hyponatremia; Z68.41 Body mass index [BMI] 40.0-44.9, adult; E11.65 Type 2 diabetes mellitus with hyperglycemia; E86.0 Dehydration; E86.1 Hypovolemia; E11.36 Type 2 diabetes mellitus with diabetic cataract; I25.10 Atherosclerotic heart disease of native coronary artery without angina pectoris; I27.20 Pulmonary hypertension, unspecified; I10 Essential (primary) hypertension; D50.9 Iron deficiency anemia, unspecified; E78.5 Hyperlipidemia, unspecified; M16.11 Unilateral primary osteoarthritis, right hip; G89.4 Chronic pain syndrome; E55.9 Vitamin D deficiency, unspecified; K21.9 Gastro-esophageal reflux disease without esophagitis; G47.33 Obstructive sleep apnea (adult) (pediatric); F20.9 Schizophrenia, unspecified; F41.9 Anxiety disorder, unspecified; E66.01 Morbid (severe) obesity due to excess calories; F17.210 Nicotine dependence, cigarettes, uncomplicated; Z79.01 Long term (current) use of anticoagulants; Z79.02 Long term (current) use of antithrombotics/antiplatelets; Z79.4 Long term (current) use of insulin; Z79.891 Long term (current) use of opiate analgesic; Z79.51 Long term (current) use of inhaled steroids; Z79.899 Other long term (current) drug therapy; Z91.14 Patient's other noncompliance with medication regimen; Z87.11 Personal history of peptic ulcer disease; Z86.711 Personal history of pulmonary embolism; Z98.84 Bariatric surgery status; Z95.5 Presence of coronary angioplasty implant and graft
CPT/HCPCS: 36415; 71045; 80048; 82947; 82962; 83036; 84484; 85025; 87633; 87804; 93005; 94002; 94640; 97162; 97166; 97530; 97535; 97802; 99285; J7030; A4216; J2405

== ENCOUNTER → 2019-05-21 12:30 | Outpatient (CLI) | payer MEDICARE, SELFPAY ==
[2019-01-17 14:26] VITALS: BMI 42.9
[2019-05-15 14:12] VITALS: BMI 46.7
--- NOTE | 2019-05-21 12:34 | US_ITS ---
INDICATION: Nodule. COMPARISON: None. TECHNIQUE: Ultrasound of the thyroid is performed. FINDINGS: Right Lobe: 4.4 x 2.2 x 1.6 cm. Homogeneous. Normal Doppler flow. Isthmus: 4 mm. Left lobe: 4.9 x 1.7 x 1.7 cm. Homogeneous. Normal Doppler flow. Nodules: Thyroid nodules measuring greater than 5mm are present, as described below: #1- Location: Right mid gland Size: 6 x 3 x 4 mm. Composition: Solid or almost completely solid (2 pts) Echogenicity: Hypoechoic (2 pts) Shape: Wider than tall (0 pts) Margins: Smooth (0 pts) Echogenic Foci: None or large comet-tail artifacts (0 pts) US/Thyroid IMPRESSION: Moderately suspicious TR 4 right nodule which does not meet the size criteria for biopsy at this time. TI-RADS follow up recommendations: TR1: Benign (0pts) No FNA biopsy. TR2: Not suspicious (2 pts) No FNA biopsy. TR3: Mildly suspicious (3 pts) FNA biopsy if nodule at least 2.5cm; follow if at least 1.5cm. TR4: Moderately suspicious (4-6 pts) FNA biopsy if nodule at least 1.5cm; follow if at least 1 cm. TR5: Highly suspicious (at least 7 pts) FNA if nodule at least 1cm; follow if at least 0.5cm. Electronically Signed: Sonido Alberts, at 15:36 EDT Tel , Service support ,
== END ==
LOC: US 12:31
PROVIDERS: Family Provider Family Medicine; PCP Family Medicine; Referring Provider Family Medicine; Visit Provider Family Medicine
DX: E04.1 Nontoxic single thyroid nodule (principal); D50.8 Other iron deficiency anemias; K90.9 Intestinal malabsorption, unspecified; Z98.84 Bariatric surgery status
CPT/HCPCS: 76536; 96365; J1756; J7050; A4216

== ENCOUNTER 2019-05-23 12:41 | Emergency (ER) | payer MEDICARE, SELFPAY ==
[2019-05-21 15:06] VITALS: BMI 46.4
[2019-05-23 12:46] VITALS: BP 153/113; PULSE 114; RESP 18; TEMP 36.9; O2SAT 99; BMI 45.4
--- NOTE | 2019-05-23 13:08 | ED.DCSUM_ITS ---
- ER Visit Summary Date of Service: 05/23/19 Chief Complaint: Nausea and vomiting with epigastric abdominal pain. History of Present Illness: The patient is a 53 F history of insulin-dependent diabetes, hypertension, COPD, CAD with multiple MIs, cardiac stents and pulmonary emboli on Eliquis and Plavix. States that started on nausea last evening and nausea and vomiting today with left upper quadrant epigastric pain. No chest pain. No shortness of breath. No headache. No hematemesis nor melena. No fever. Physical Examination: Middle-aged female actively vomiting. Vital signs are stable. She is afebrile. She does not look septic or toxic. H EENT exam unremarkable. Pupils are unreactive laser motions are intact. No facial droop normal speech no signs of trauma neck nontender no lymphadenopathy. Lungs clear to auscultation bilaterally. Heart regular rhythm rate about 110 no murmur. Abdomen soft. Nondistended. Normal bowel sounds. Well-healed prior surgical incisions. She has had past gastric bypass surgery. No obvious hernia. No obstruction. Normal bowel sounds. Soft. Right upper right lower quadrant unremarkable. Moving all 4 extremities. No edema. Back nontender. Neurologically she is awake and alert. Test Results: White count of 13.3. Hemoglobin 14. No bands. Electrolytes unremarkable normal creatinine and gap. Glucose 238. Liver enzymes unremarkable. Alk phos of 161. Lipase normal at 72. Emergency Department Course and Treatment: Patient with nausea and vomiting. Treated with IV fluids and IV Phenergan. She stated that Phenergan works better for her nausea. Screening labs are being obtained. Patient started to feel better after a liter of normal saline and Phenergan IV x2. She is still having nausea should be given Reglan and a dose of Ativan. I reviewed her old records she has had 2 recent CAT scans both of which were unremarkable. Treatment Plan: Phenergan as needed for nausea. Plenty of fluids and rest. Increase diet as tolerated. Return if feeling worse. Disposition: Discharge Impression: Acute nausea and vomiting with abdominal pain History of insulin-dependent diabetes History of CAD with 5 MIs and cardiac stents Anticoagulated This note was generated with [employer] dictation software. It may contain incorrect words, spelling, and punctuation that were not noted in review of the chart prior to signing ED Disposition - Plan for ED Patient: Referrals: Janel Taylor MD [Primary Care Provider] -
[2019-05-23 13:23] LABS: Absolute Lymphocyte Count 0.79 X10^3/uL (0.83-4.51); Absolute Neutrophil Count 11.5 X10^3/uL (2.0-7.7); Basophil# 0.06 X10^3/uL; Basophil% 0.5 % (0-1); Eosinophil# 0.04 X10^3/uL; Eosinophils% 0.3 % (0-5); Hematocrit 43.5 % (37-47); Hemoglobin 14.3 g/dL (12.0-15.0); Lymphocyte # 0.79 X10^3/ul (4.0); Lymphocyte % 5.9 % (19-41); Mean Corp Hgb Conc 32.9 g/dL (32-36); Mean Corpuscular Hgb 28.8 pg (27.0-32.0); Mean Corpuscular Volume 87.5 fL (81-99); Mean Platelet Vol. 9.3 fl (6.2-12.0); Monocyte# 0.87 X10^3/uL; Monocyte% 6.5 % (0-10); NRBC Flagged by Analyzer 0 % (0-5); Neutrophil # 11.48 X10^3/uL (2.7-7.7); Neutrophil % 86.3 % (47-70); Platelet Count 242 K/mm3 (150-450); RBC Distribution Width CV 13.2 % (11.6-14.6); RBC Distribution Width SD 41.9 fl (35.1-43.9); Red Blood Count 4.97 M/mm3 (4.2-5.4); White Blood Count 13.3 K/mm3 (4.4-11.0)
[2019-05-23 13:32] LABS: AST(SGOT) 19 U/L (15-37); Alanine Aminotransfer ALT/SGPT 43 U/L (13-56); Alkaline Phosphatase 161 U/L (45-117); Anion Gap 8 (5-15); BUN 6 mg/dL (7-18); BUN/Creat Ratio 6.7 RATIO (10-20); Calcium,Total 10.3 mg/dL (8.5-10.1); Chloride 105 mmol/L (98-107); EST Glomerular Filtration Rate 70 mL/min (>60); Est Glom Filt Rate - Afr Amer 84 mL/min (>60); Globulin 4.2 g/dL (2.2-4.2); Glucose 238 mg/dL (74-106); Lipase 72 U/L (73-393); Potassium 3.9 mmol/L (3.5-5.1); Protein, Total 8.2 g/dL (6.4-8.2); Sodium Level 136 mmol/L (136-145)
[2019-05-23] MEDS: 0.9% Normal Saline 1,000 ML 1000 ML IV (13:45)
[2019-05-23] MEDS: proMETHazine 25 MG/ML Syringe 12.5 MG IV ×2 (13:46→14:36)
[2019-05-23 13:48] VITALS: PULSE 105; RESP 20; O2SAT 98
[2019-05-23 15:00] VITALS: BP 109/94; PULSE 99; RESP 26; O2SAT 102
--- NOTE | 2019-05-23 15:05 | DCINST.ED_ITS ---
ED Disposition - Plan for ED Patient: Disposition: Home or Assisted Living Instructions: VOMITING (6y-Adult) Prescriptions: proMETHazine tablet [Phenergan tablet] 25 mg PO Q4H PRN PRN #10 tab PRN Reason: Nausea Transmission Status: Pending to [facility] Referrals: Janel Taylor MD [Primary Care Provider] - 3-5 Days if not improving Additional Instructions: Plenty of fluids and rest. [place] diet and increase slowly as tolerated. Phenergan as needed for nausea. Return if you are feeling worse or follow-up with your doctor if not improving. Your labs today were unremarkable.
[2019-05-23] MEDS: Metoclopramide 10 MG/2 ML Vial 5 MG IV ×2 (15:11→15:57)
[2019-05-23] MEDS: LORazepam 2 MG/ML Syringe 1 MG IV (15:11)
--- NOTE | 2019-05-23 16:23 | ED.DEP ---
ED Disposition - Plan for ED Patient: Disposition: Home or Assisted Living Instructions: VOMITING (6y-Adult) Prescriptions: proMETHazine tablet [Phenergan tablet] 25 mg PO Q4H PRN PRN #10 tab PRN Reason: Nausea Transmission Status: Received by [facility] proMETHazine tablet [Phenergan tablet] 25 mg PO Q4H PRN PRN #10 tab PRN Reason: Nausea Prescription Printed Referrals: Janel Taylor MD [Primary Care Provider] - 3-5 Days if not improving Additional Instructions: Plenty of fluids and rest. [place] diet and increase slowly as tolerated. Phenergan as needed for nausea. Return if you are feeling worse or follow-up with your doctor if not improving. Your labs today were unremarkable.
== END 2019-05-23 16:26 | disposition home or self-care (01) ==
PROVIDERS: Emergency Provider Emergency Medicine; PCP Family Medicine
DX: R11.2 Nausea with vomiting, unspecified (principal); R10.13 Epigastric pain; E11.9 Type 2 diabetes mellitus without complications; I25.10 Atherosclerotic heart disease of native coronary artery without angina pectoris; I10 Essential (primary) hypertension; I25.2 Old myocardial infarction; J44.9 Chronic obstructive pulmonary disease, unspecified; E78.00 Pure hypercholesterolemia, unspecified; Z86.711 Personal history of pulmonary embolism; Z98.84 Bariatric surgery status; Z95.5 Presence of coronary angioplasty implant and graft; Z79.4 Long term (current) use of insulin; Z79.01 Long term (current) use of anticoagulants; Z79.02 Long term (current) use of antithrombotics/antiplatelets; Z79.899 Other long term (current) drug therapy; Z72.0 Tobacco use
CPT/HCPCS: 80053; 83690; 85025; 96361; 96374; 96375; 96376; 99285; J7030; A4216

== ENCOUNTER → 2019-07-10 10:41 | Outpatient (CLI) | payer MEDICARE, SELFPAY ==
[2019-07-10 08:03] VITALS: BMI 44.6
[2019-07-10 11:14] LABS: Absolute Lymphocyte Count 1.42 X10^3/uL (0.83-4.51); Absolute Neutrophil Count 6.5 X10^3/uL (2.0-7.7); Basophil# 0.09 X10^3/uL; Eosinophil# 0.17 X10^3/uL; Eosinophils% 1.9 % (0-5); Hematocrit 42.4 % (37-47); Lymphocyte # 1.42 X10^3/ul (4.0); Lymphocyte % 15.8 % (19-41); Mean Corpuscular Volume 87.8 fL (81-99); Mean Platelet Vol. 9.4 fl (6.2-12.0); Monocyte# 0.77 X10^3/uL; Monocyte% 8.6 % (0-10); NRBC Flagged by Analyzer 0 % (0-5); Neutrophil # 6.48 X10^3/uL (2.7-7.7); Neutrophil % 72.4 % (47-70); Platelet Count 263 K/mm3 (150-450); RBC Distribution Width CV 14.7 % (11.6-14.6); RBC Distribution Width SD 47.3 fl (35.1-43.9); Red Blood Count 4.83 M/mm3 (4.2-5.4)
[2019-07-12 20:07] LABS: Alternaria alternata <0.10 kU/L (Class 0); Bermuda Grass <0.10 kU/L (Class 0); Bluegrass, Kentucky <0.10 kU/L (Class 0); Cat Hair/Dander, Standard <0.10 kU/L (Class 0); D farinae Mite <0.10 kU/L (Class 0); D pteronyssinus <0.10 kU/L (Class 0); Dog Epithelia <0.10 kU/L (Class 0); Elm, American White <0.10 kU/L (Class 0); Oak, White <0.10 kU/L (Class 0); Plantain, English <0.10 kU/L (Class 0); Ragweed, Short/Common <0.10 kU/L (Class 0)
[2019-07-13 03:29] LABS: Mouse Urine <0.10 kU/L (Class 0)
[2019-07-13 20:07] LABS: Aspirgillus flavus Negative (Neg:<1:1); Aspirgillus fumigatus Negative (Neg:<1:1); Aspirgillus niger Negative (Neg:<1:1)
[2019-07-14 09:23] LABS: Immunoglobulin E 21 IU/mL (6-495)
== END ==
LOC: PAVLAB 10:42
PROVIDERS: Nurse Practitioner Acute Care; PCP Family Medicine; Referring Provider Internal Medicine Critical Care Medicine; Visit Provider Internal Medicine Critical Care Medicine
DX: R05 Cough (principal)
CPT/HCPCS: 82785; 85025; 86003; 86606

== ENCOUNTER 2019-07-23 09:00 | Outpatient (RCR) | payer MEDICARE, SELFPAY ==
[2019-07-23 12:40] VITALS: BMI 42.9
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
--- NOTE | 2019-07-24 11:14 | BH.SGPN.GN ---
Behaviors/Verbalizations/Mental Status: []Eye contact is good. Motor activity is appropriate. Appearance is neat. Speech is Appropriate. Mood is dysthymic. Affect constricted. Thoughts are linear and logical. No evidence of psychosis Client Response/Progress/Benefit: []Client was engaged and contributing to discussion, did well to develop a personal SMART goal. Client chose the goal; to take her dog for a walk 3 times a week for 5 more minutes than normal. When asked why this goal was important and beneficial to client's mental health she stated it will beneficial for both her dog?s physical health and clients, it will reduce isolation, and give a sense of accomplishment. Identified the following barriers to completing this goal which included;lack of motivation, health issues, pain, and lack of energy. Struggled to identify solutions at first, but was receptive to ideas from peers. Identified solutions to barriers which included; opposite action, increasing her oxygen when she walks, and trying not to smoke when she walks. Benefited from this group by developing a short-term SMART goal related to mental health and from problem-solving barriers. First day of IOP tx. Will continue to prevent decompensation that may require hospitalization and to increase healthy coping skills. Narrative Note: []
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
--- NOTE | 2019-07-24 13:09 | BH.DR.ITP ---
Initial Treatment Plan - Patient Information Visit Information: ADMISSION DATE: EXPECTED LOS: 4-6 weeks - Problems/Symptoms Problem #1:: Depression Symptom:: Sadness, hopelessness, worthlessness, passive thoughts, passive suicidal ideation, noncompliance with Insulin Problem #2:: Anxiety Symptom:: Rumination, panic attacks, worry
--- NOTE | 2019-07-26 14:04 | BH.MDN ---
Multi-Disciplinary Note - Note 45-min Individual Time Started:: 13:00 Date: 07/26/19 Purpose of session/treatment goals addressed:: The purpose of this session was to address current stressors, symptoms, and triggers. Another goal was to develop strategies to help client cope through the weekend. Other topics included; finishing paperwork and goals. Symptoms/Behavior:: Pt was emailed consent to treat, telehealth consent, basic client rights, and ROIs which she reviewed and verbally consented to. This counseling session was provided via telehealth using two-way, real-time interactive telecommunication technology between the patient and the clinician. The interactive telecommunication technology included audio and video. The patient was offered telehealth as an option for care delivery during the COVID-19 pandemic and consented to this option. Patient location: [place]. Provider located at [facility] Eye Contact:: Good Motor Activity:: Appropriate Appearance:: Neat Speech:: Appropriate Mood:: Anxious, Dysthymic Affect:: Congruent Thoughts:: Linear, Logical, No evidence of hallucinations/delusions noted Staff Interventions:: Therapist used active listening and open-ended questions to explore client's current stressors, symptoms, and triggers. Therapist finished paperwork with client and problem-solved barriers that may prevent client from consistently attending IOP. Therapist helped client develop a plan for the weekend and explored different ways client could make social connections. Therapist provided psychoeducation on depression, anxiety, and cognitive distortions. Therapist used cognitive restructuring to help client combat distortions. Therapist helped client explore ways she could increase personal accountability. Client Response:: Client responded well to session, open to meeting with therapist. Client reports this week has been tough for client. Client shared she is being weaned off prednisone which typically makes client feel sick and negatively impacts her moods. Client shared this week has been like one disappointment after another. Despite client's current frustrations, she is overall receptive and able to challenge negative thoughts. Client shared she plans to call her doctor today about her concerns regarding feeling sick and difficulty breathing. Client stated she is excited about next Monday because she is getting a laser treatment done to help client quit smoking. Client reported her neighbor is paying for the treatment because he wants her to get better. Client shared her neighbor is a good support, but he does not come over that often. Client has a friend who she talks with on the phone twice a day. Client was willing to let her friend know about client?s IOP goals to help client hold herself accountable. Client would like to see her sisters more, but it is difficult for them to come visit client. Client and therapist discussed client using zoom meetings to connect with her sisters. Client was receptive and excited about this idea. Client plans to try zoom with her sisters this weekend to prevent isolation. Risks/Concerns:: Client denies any suicidal ideations, plan, or intent as of 07/26/19. Client was future oriented and reported she is excited to get treatment next week to help her quit smoking. Progress Toward Goals/Plan:: Client?s first week in IOP. Did well in group sessions this week and client reported positive interactions with IOP staff. Client continues to endorse severe anxiety and depression. Client self-reports daily panic attacks, racing thoughts, hopelessness, frequent crying spells, lack of concentration, passive SI, and anhedonia. Client shared this week has been especially difficult for her because she is being weaned off of prednisone. Client reports when this happens her medical issues exacerbate, and her moods become worse. Client does not present as an immediate risk to herself or others. Will continue IOP tx to prevent decompensation, learn healthy coping skills, and improve mood stability. Time Stopped:: 13:40
--- NOTE | 2019-07-30 09:03 | BH.SGPN.GN ---
This psychotherapy group was provided via telehealth using two-way, real-time interactive telecommunication technology between the patients and the provider. The interactive telecommunication technology included audio and video. The patient was offered telemedicine as an option for care delivery during the COVID-19 pandemic and consented to this option. Patient location: [place] Provider located at [facility] Behaviors/Verbalizations/Mental Status: []Client alert and oriented, neatly dressed and groomed. Eye contact fair. Motor activity appropriate. Speech within normal limits. Affect congruent-tearful, mood anxious, dysthymic. Thoughts linear, logical, no signs of hallucinations or delusions. Reviewed client?s symptom tracker, no risk for suicidal ideation, plan, or intent as of 07/30/19. Client Response/Progress/Benefit: []Client responded well to session, attentive and providing supportive statements to peers. Client reports feeling stressed today. Client shared she did some productive things over the weekend as client cleaned and took her dog for walks. Client also talked with her sisters and her best friend this weekend. Client shared she is stressed because she also spent a lot of the weekend isolating and sleeping to avoid her anxiety. Client reported she tends to sleeps as an escape. Receptive to supportive statements from peers and recognizes the consequences of avoidance. Appeared to benefit from connecting with peers and challenging negative thinking in the moment. Will continue IOP tx to prevent decompensation, reduce depressive symptoms, and increase healthy coping skills. Narrative Note: []
--- NOTE | 2019-07-30 10:15 | BH.SGPN.GN ---
Addendum entered and electronically signed by Kat Tovar LSW 07/31/19 10:35: Addendum to include missing documentation as document saved prior to completion. Client responded well to session, quiet though remaining attentive and willing to provide some input to discussion. Client indicated connecting with topic of boundaries and agreed with peers that healthy boundaries are essential for maintaining mental health. Group participated in the discussion on benefits of setting boundaries which included; feeling happier, improved self-confidence, avoidance of toxic people, and reduced stress. Client engaged during discussion of the different types of boundaries and able to identify and connect with examples of each. Client helped the group recognize the consequences of not having healthy boundaries and noted that for her this has led to putting her own needs last and decreased self-care. Client seemed to benefit from increased awareness of how poor boundaries can negatively impact mental health and expressed that lack of prioritizing her own needs and saying no to others has negatively impacted her mental health. Progress noted in client?s increased participation in group and improved insight into own boundaries. Will continue IOP tx to promote mood stability, further decrease depression, and improve daily functioning. Original Note: This psychotherapy group was provided via telehealth using two-way, real-time interactive telecommunication technology between the patients and the provider. The interactive telecommunication technology included audio and video. The patient was offered telemedicine as an option for care delivery during the COVID-19 pandemic and consented to this option. Patient location: [place] Provider located at [facility] Behaviors/Verbalizations/Mental Status: []Client alert and oriented, casually dressed and groomed. Eye contact good. Motor activity appropriate, though limited info due to pt being telehealth. Speech within normal limits. Affect appearing congruent, mood anxious, depressed. Thoughts linear, logical, no signs of hallucinations or delusions. Client Response/Progress/Benefit: [] Narrative Note: []
--- NOTE | 2019-07-30 14:06 | BH.MDN_ITS ---
Multi-Disciplinary Note - Note 45-min Individual Time Started:: 11:25 Date: 07/30/19 Purpose of session/treatment goals addressed:: The purpose of this session was to address current stressors, symptoms, triggers, and negative thoughts. Another goal was to practice thought challenging. Other topics included; psychoeducation and grounding skills. Eye Contact:: Good Motor Activity:: Appropriate Appearance:: Casual Speech:: Appropriate Mood:: Anxious, Dysthymic Affect:: Congruent - tearful Thoughts:: Linear, Logical, No evidence of hallucinations/delusions noted Staff Interventions:: Therapist used active listening and open-ended questions to explore client's current stressors, symptoms, negative thoughts. Therapist provided psychoeducation on the connection between thoughts, feelings, and behaviors. Therapist helped client identify distorted thoughts and assisted client in challenging them. Therapist encouraged client to write out affirmations and hang them around her house as a reminder to challenge distortions. Client Response:: Client responded well to session, open to meeting with therapist. Client stated she continues to struggle with managing her anxiety and depression. Client shared she feels hopeless and frustrated with her symptoms and medical issues, but client reports being open to learning new skills. Client receptive to psychoeducation on the connection of thoughts, feelings, and behaviors. Client identified her typical emotional responses for emotions such as anxiety, anger, and sadness. Client shared when she is anxious she wants to avoid, when she is angry she wants to lash out, and when she is depressed she wants to isolate. Client and therapist discussed how these behaviors maintain unhealthy maintenance cycles. Client and therapist briefly reviewed behavioral activation again. Client receptive to learning about thought challenging and willing to create affirmations. Client's affirmations were: I am an overcomer, I control my thoughts they don't control me, I choose peace. Client reported she will put these around her house. Risks/Concerns:: Client reports feeling hopeless today and tired of dealing with issues. Client denies any suicidal ideations, plan, or intent as of 07/30/19. Client reports ability to maintain safety today. Future oriented with plans to go an appointment tomorrow. Progress Toward Goals/Plan:: Client appears to be assimilating well into the group setting and client often takes notes. Client is receptive to learning new coping skills, but she self-reports difficulty implementing them. Client c ontinues to endorse severe anxiety and depression. Client self-reports daily panic attacks, racing thoughts, hopelessness, frequent crying spells, lack of concentration, passive SI, and anhedonia. Client also continues to report numerous psychosocial stressors including: lack of support, conflict with her neighbor, and ongoing health issues. Client does not present as an immediate risk to herself or others. Will continue IOP tx to prevent decompensation, learn healthy coping skills, and improve mood stability. Time Stopped:: 12:06
--- NOTE | 2019-07-31 09:07 | BH.SGPN.GN ---
Behaviors/Verbalizations/Mental Status: []Client alert and oriented, casually dressed. Eye contact good. Motor activity appropriate, though difficult to determine as pt telehealth. Speech within normal limits. Affect congruent, though pt telehealth, mood dysthymic, anxious. Thoughts linear, logical, no signs of hallucinations or delusions. Reviewed client?s symptom tracker, no risk for suicidal ideation, plan, or intent as of 07/31/19. Client Response/Progress/Benefit: []Client responded well to session, attentive and willing to share with the group. Client reports feeling tired today as she is feeling under the weather this morning. Expressed this as her concern as she has occupational therapy today and fears she won?t have the energy to complete the exercises. Able to identify opposite action as a skill she may utilize to improve motivation and overall ability to complete this. Pt did well to identify current mental health wins which included starting a new meditation practice and posting positive affirmations around the house to remind her of the positives. Expressed that both helped improve her mood yesterday. Receptive of support and appeared to benefit from the structured group setting. Will continue iop tx to improve mood stability, prevent decompensation, and improve mental health sx management. Narrative Note: []
--- NOTE | 2019-07-31 10:15 | BH.SGPN.GN ---
This psychotherapy group was provided via telehealth using two-way, real-time interactive telecommunication technology between the patients and the provider. The interactive telecommunication technology included audio and video. The patient was offered telemedicine as an option for care delivery during the COVID-19 pandemic and consented to this option. Patient location: [place] Provider located at [facility] Behaviors/Verbalizations/Mental Status: []Client alert and oriented, casually dressed. Eye contact fair. Motor activity appropriate. Speech within normal limits. Affect constricted, mood depressed. Thoughts linear, logical, no signs of hallucinations or delusions. Client Response/Progress/Benefit: []Pt passive participant throughout session AEB pt providing limited input throughout discussion, however did appear to listen attentively to peers and completed worksheet. Pt shared emotions that are underlying anger include: not being validated, hopelessness, pain, out of control, and anxious. Pt identified the following as ways he expresses anger: lashing out, crying, panic attacks, and isolating. Pt seemed to recognize current way of expressing anger is not healthy and can impact relationships.. Pt seemed to benefit from increased awareness of how unmanaged anger can impact self and others. Pt to continue IOP to increase healthy coping, challenge distorted thoughts and prevent decompensation. Narrative Note: []
--- NOTE | 2019-07-31 11:15 | BH.SGPN.GN ---
This psychotherapy group was provided via telehealth using two-way, real-time interactive telecommunication technology between the patients and the provider. The interactive telecommunication technology included audio and video. The patient was offered telemedicine as an option for care delivery during the COVID-19 pandemic and consented to this option. Patient location: [place] Provider located at [facility] Behaviors/Verbalizations/Mental Status: []Client alert and oriented, casually dressed and groomed. Eye contact good. Motor activity appropriate. Speech within normal limits. Affect congruent, mood anxious, dysthymic. Thoughts linear, logical, no signs of hallucinations or delusions. Client Response/Progress/Benefit: []Client was an engaged participant throughout group AEB client providing input throughout discussion. Client helped the group identify common warning signs of anger and identified personal warning signs of anger which included; headaches, getting red in the face, gritting her teeth, and restlessness. Client reported some of these warning signs are similar for client's panic warning signs and client asked the group how to manage panic. Received numerous strategies from peers. Group brainstormed with group healthy coping skills to help manage anger which included: deep breathing, opposite action, exercise, taking breaks, and redirecting anger. Client selected meditation as the skill client wants to incorporate this week to manage anger. Client appeared to benefit from identifying different techniques to manage anger as well as gaining awareness of warning signs. Recommended continued IOP tx to reduce depressive symptoms, improve emotional regulation, and increase healthy coping skills. Narrative Note: []
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
--- NOTE | 2019-08-01 10:17 | BH.SGPN.GN ---
Behaviors/Verbalizations/Mental Status: []Client alert and oriented, casually dressed and groomed. Eye contact fair to good. Motor activity appropriate. Though pt on telehealth. Speech within normal limits. Affect uncertain as pt telehealth, mood anxious and dysthymic. Thoughts linear, logical, no signs of hallucinations or delusions. Client Response/Progress/Benefit: []Pt was engaged throughout group session AEB contributing input to discussion, asking questions, and taking notes. Connected with quote and topic of healthy coping and expressed that healthy coping is an area in which she has struggled with in the past as she often relies on unhealthy coping mechanisms. Group discussed common unhealthy coping skills which included; avoidance, drinking, sleeping, eating too much, lashing out on others, and prioritizing other things over actual responsibilities. Group reported people turn to unhealthy skills because it?s often easier, as well as habit, fear, and wanting a quick fix. Expressed relating to unhealthy skill of lashing out on others. Client worked with group to identify impact of unhealthy coping on mental health and noted that healthy coping takes support, motivation, and follow through. Client seemed to benefit from improved awareness of importance of increasing healthy coping skills and consequences of utilizing unhealthy coping skills. Client to continue IOP tx to promote gains, further improve consistent skill application and mood management, and improve daily functioning. Narrative Note: []
--- NOTE | 2019-08-01 11:19 | BH.SGPN.GN ---
Behaviors/Verbalizations/Mental Status: [] Client alert and oriented, casually dressed and groomed. Eye contact fair to good, pt attending via telehealth. Motor activity appropriate, at times struggling with technology causing issues with engagement. Speech within normal limits. Affect congruent, mood anxious, agitated. Thoughts linear, logical, no signs of hallucinations or delusions. Client Response/Progress/Benefit: [] Client responded well to session, participating in discussion, though remaining mostly passive. Agreed with peers that it is important to have a balance of healthy coping skills to best prevent crisis and indicated that she has struggled with this in the past. Specifically noted struggling with self-care. Client contributed some as the group discussed the different categories of coping skills which included distraction, emotional release, grounding, self-love, and thought challenging. Connected with examples provided. Client participated in creating a coping skills ?menu? for the five categories of coping skills. Client however did not share this coping skill menu as she was pulled for individual session a few minutes prior to end of group. Client appeared to benefit from increasing repertoire of healthy coping skills. Client progress shown by report of improved mood and insight. Will continue IOP tx to further decrease anxiety, depression, and improve mood stability. Narrative Note: []
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
== END 2019-08-04 23:59 ==
LOC: BHIOP 09:00
PROVIDERS: PCP Family Medicine; Referring Provider Psychiatry & Neurology Psychiatry; Visit Provider Psychiatry & Neurology Psychiatry
DX: F25.0 Schizoaffective disorder, bipolar type (principal); F25.1 Schizoaffective disorder, depressive type
CPT/HCPCS: H0035; 90832; 90834; 90853

== ENCOUNTER 2019-08-06 09:00 | Outpatient (RCR) | payer MEDICARE, SELFPAY ==
--- NOTE | 2019-08-06 10:15 | BH.SGPN.GN ---
This psychotherapy group was provided via telehealth using two-way, real-time interactive telecommunication technology between the patients and the provider. The interactive telecommunication technology included audio and video. The patient was offered telemedicine as an option for care delivery during the COVID-19 pandemic and consented to this option. Patient location: [place] Provider located at [facility] Behaviors/Verbalizations/Mental Status: []Client alert and oriented, casually dressed. Eye contact good. Motor activity appropriate. Speech within normal limits. Affect constricted, mood anxious and dysthymic. Thoughts linear, logical, no signs of hallucinations or delusions. Client Response/Progress/Benefit: []Client mostly passive during discussion though some engagement AEB nodding and maintaining eye contact. Connected with discussion on how coping with external crises by using unhealthy coping skills could result in a personal crisis. Group reported that it is important to have awareness of warning signs which can prevent reaching crisis point. Group identified warning signs for crisis and client completed the personal warning signs worksheet. Pt identified personal crisis warning signs to include: panic attacks, avoidance, and anger outbursts. Benefited by increasing awareness of crisis and personal warning signs. Will continue IOP tx to increase healthy coping, improve daily functioning and prevent decompensation. Narrative Note: []
--- NOTE | 2019-08-06 12:12 | BH.MDN_ITS ---
Multi-Disciplinary Note - Note 30-min Individual Time Started:: 11:41 Date: 08/06/19 Purpose of session/treatment goals addressed:: The purpose of this session was to address current stressors, symptoms, triggers, and negative thoughts. Another goal was to practice thought challenging. Other topics included; resources and healthy distraction coping skills. Symptoms/Behavior:: This counseling session was provided via telehealth using two-way, real-time interactive telecommunication technology between the patient and the clinician. The interactive telecommunication technology included audio and video. The patient was offered telehealth as an option for care delivery during the COVID-19 pandemic and consented to this option. Patient location: [place]. Provider located at [facility] Eye Contact:: Good Motor Activity:: Appropriate Appearance:: Casual Speech:: Appropriate Mood:: Anxious, Dysthymic Affect:: Constricted Thoughts:: Linear, Logical, No evidence of hallucinations/delusions noted Staff Interventions:: Therapist used active listening and open-ended questions to explore client's current stressor, symptoms, triggers, and negative thoughts. Therapist used cognitive restructuring techiques to challenge client's distortions reinforcing depression and hopelessness. Therapist taught client a healthy distraction technique called DDD (delay, distract, decide) to help client improve distress tolerance and reduce the use of unhealthy coping skills. Therapist offered to call Liam to schedule an appointment for case management services. Client Response:: Client responded well to session, open to meeting with therapist. Client stated she continues to struggle over the weekends, due to self-reported isolation and increased anxiety. Client shared she did do some positive things this weekend such as applying for a new apartment, taking her dog for walks, and talking to supports on the phone. Client stated she is looking forward to the potential of living in a new apartment. Client reports belief that getting away from certain toxic people and having more access to outside would improve her mood. Client continues to be receptive to getting case management services and verbally consented a DERRICK between this therapist and Liam. Client shared she is someone disappointed in herself today because client tried laser treatment to stop client from smoking last week, but it did not work. Client shared the next day I smoked...It didn't stop the cravings. Able to challenge distortions reinforcing disappointment, labeling of failure, and hopelessness. Client and therapist discussed other ways client can work towards her goal of quitting smoking. Ideas included: waiting 5-10 minutes before choosing to smoke, healthy distractions, using the patch and gum, and writing out reasons to quit. One of client's reasons was smoking makes me feel bad. Client came up with a list of healthy distractions she can use this week which included: coloring, knitting, shredding paper, and completing word searches. Risks/Concerns:: Client continues to endorse passive SI, which is her baseline. Client denies any active suicidal ideations, plan, or intent as of 08/06/19. Future oriented AEB client reporting excitement about case management and applying for a new apartment. Progress Toward Goals/Plan:: Client making progress in learning healthy coping skills, but she continues to struggle with mood instability. Client did some healthy coping skills this weekend including applying for a new apartment complex. Client continues to endorse a depressed mood, anhedonia, negative thinking, lack of motivation, crying spells, and rumination. Client also continues to report daily panic attacks and avoidant behaviors. Client reported her attempt to quit smoking did not work with the laser treatment, but she will continue to try and quit. Client gave therapist verbal consent to schedule a case management appointment for client and fax over her assessment from IOP. Will continue IOP tx to prevent further decompensation, increase use of healthy coping skills, and reduce negative thoughts that reinforce mental health symp toms. Time Stopped:: 12:12
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
--- NOTE | 2019-08-13 10:08 | BH.SGPN.GN ---
This psychotherapy group was provided via telehealth using two-way, real-time interactive telecommunication technology between the patients and the provider. The interactive telecommunication technology included audio and video. The patient was offered telemedicine as an option for care delivery during the COVID-19 pandemic and consented to this option. Patient location: [place] Provider located at [facility] Behaviors/Verbalizations/Mental Status: [] Client alert and oriented, casually dressed. Eye contact good though at times struggling to remain on screen. Motor activity appropriate, though difficult to determine as pt telehealth. Speech within normal limits, quiet. Affect congruent, though pt telehealth, mood dysthymic, anxious. Thoughts linear, logical, no signs of hallucinations or delusions. Client Response/Progress/Benefit: [] Client receptive of session, mostly engaged throughout though providing limited input. She did well to listen during group discussion on the quote and identifying ways in which perspective can impact mental health and one's outlook. Client nodding in agreement that emotions and stress levels can impact perspective in the moment. Attentive during discussion on how one develops perspective. Client listened and nodding as group worked to identify how negative perspective can impact mental health which included: unrealistic expectations, self-sabotage, maintain depression and anxiety, assuming the worst, giving up, increased distorted thoughts, and relationship tension. Client connected with group discussion that having a positive or open-minded perspective can help a person overcome challenges, be more willing to seek help, and increase self-confidence. Client appeared to benefit from increasing understanding of mental health benefits of a positive perspective and potential consequences to progress when perspective is negative. Progress limited due to continued difficulties in engagement in group environment. Will continue IOP tx to promote use of healthy coping skills, reduce anxiety symptoms further, increase engagement, and prevent decompensation. Narrative Note: []
--- NOTE | 2019-08-13 11:15 | BH.SGPN.GN ---
Addendum entered and electronically signed by Kat Tovar LSW 08/13/19 15:41: This psychotherapy group was provided via telehealth using two-way, real-time interactive telecommunication technology between the patients and the provider. The interactive telecommunication technology included audio and video. The patient was offered telemedicine as an option for care delivery during the COVID-19 pandemic and consented to this option. Patient location: [place] Provider located at [facility] Original Note: Behaviors/Verbalizations/Mental Status: []Client alert and oriented, casual dress, hygiene tended to. Eye contact fair - on telehealth and at times her screen was cutting out. Motor activity appropriate. Speech within normal limits. Affect congruent, mood anxious and dysthymic. Thoughts linear, logical, no signs of hallucinations or delusions. Client Response/Progress/Benefit: [] Client responded well to session, attentive though limited input provided throughout. Did well to participate and taking notes. Group shared that if one does not recognize their strengths, it could lead to increased mental health symptoms, taking on more than they can handle, and giving up on goals. Connected with the benefits of recognizing personal strengths on improving mental health which included: increased self-confidence, increased willingness to try new things, and open mindedness. Client able to identify personal strengths she possesses which includes: empathy, gratitude, and love. Client reported identified strengths have supported mental health progress in the past by allowing for her to be more open to asking for help, appreciate the positives in her daily life, and prevent her past from negatively impacting her present. Appeared to benefit from recognizing personal strengths and identifying strategies to increase recognition of strengths. ?Will continue IOP tx to prevent decompensation, improve consistent application of skills, as well as continue to improve mood stability. Narrative Note: []
--- NOTE | 2019-08-14 09:03 | BH.SGPN.GN ---
This psychotherapy group was provided via telehealth using two-way, real-time interactive telecommunication technology between the patients and the provider. The interactive telecommunication technology included audio and video. The patient was offered telemedicine as an option for care delivery during the COVID-19 pandemic and consented to this option. Patient location: [place] Provider located at [facility] Behaviors/Verbalizations/Mental Status: []Client alert and oriented, casual dress, hygiene tended to. Eye contact good. Motor activity appropriate. Speech within normal limits. Affect congruent, mood anxious. Thoughts linear, logical, no signs of hallucinations or delusions. Reviewed client?s symptom tracker, no signs of suicidal ideation, plan, or intent as of today. Client Response/Progress/Benefit: []Client responded well to session, receptive to feedback and encouragement. Client reports feeling anxious and angry today but I'm not sure why. Client reported she had a good birthday yesterday with many positives. Client shared her positives and use of coping skills with the group. Client stated she has been using positive self-talk, focusing on the good things she has, and opposite action. Client reported she has been reading her affirmations this morning to help client combat her anxious and angry thoughts. Client shared yesterday she received good news about getting an electric wheelchair and she got a thoughtful gift from a friend. Client reported her stressor today is that she woke up in a not great mood, but she is hopeful that she will be able to cope with this. Appeared to benefit from reflecting on her application of coping skills. Will continue IOP tx to prevent decompensation, reduce intensity and duration of anxiety and panic, and to improve healthy coping skills. Narrative Note: []
--- NOTE | 2019-08-14 10:10 | BH.SGPN.GN ---
Behaviors/Verbalizations/Mental Status: []Client alert and oriented, casually dressed and appropriately groomed. Eye contact fair - pt at times not on screen. Motor activity appropriate. Speech WNL, quiet. Affect congruent, mood anxious and dysthymic. Thoughts linear, logical, no signs of hallucinations or delusions. Client Response/Progress/Benefit: [] Client attentive and providing increased input compared to previous sessions. Nodded in agreement with others during discussion on the quote and the power our thoughts have. Client connected with the discussion about how distorted thought patterns can reinforce mental health symptoms and impact relationships. Discussed often she struggles with distortions leading her to take on other people?s problems. Client engaged throughout the discussion on different types of thought distortions and noted that she connects with personalization, all or nothing thinking, mental filter, and fortune telling. Appeared to benefit from increasing awareness of cognitive distortions and how they can impact emotions and behaviors. Progress noted in client reports of improved mood. Will continue IOP tx to prevent decompensation, improve healthy skill application, and increase mood stability. Narrative Note: []
--- NOTE | 2019-08-14 11:18 | PCM.BH.PN ---
Progress Note Progress Note: History of Present Illness/Interim History: [] Patient is a 54-year-old single female with a history of schizophrenia, depression, anxiety, panic attacks and numerous severe health issues (COPD, cardiovascular disease, chronic pain, diabetes mellitus type 2 insulin-dependent) who is seen in follow-up at the [facility] IOP program. She is seen by telehealth due to her health issues and the pandemic. I last saw the patient about 2 weeks ago. The patient states that she had a recent exacerbation of her COPD and this has made her feel even more anxious and panicky due to her inability to feel like she is getting enough air. She is having panic attacks now about 3 times a week. She is attempting to take her insulin on a more regular basis but she still sometimes eats before she takes her insulin dose. She still enjoys being with her dog but is unable to walk him as much due to her current COPD exacerbation. She has tried to decrease caffeine as much as possible in order to help with the panic attacks. She is enjoying the IOP program when she is able to participate virtually and she does get some benefit out of it but when the COPD worsen she is unable to even participate well in the IOP program. She denies any suicidal ideation but she does admit that she has had passive thoughts that she would not care if she . She denies any active or passive suicidal ideation or plan. She denies any hallucinations or delusions. She has decreased sleep especially during a COPD flare because she wakes up every few hours of sleep off and on during the night. She has fatigue, low energy and decreased motivation during the day. She remains in a state of worry for her many health conditions. She lives alone and has been talking to her one girlfriend some but says her girlfriend is too many problems of her own to really be a help to the patient. Current Psychiatric Medications: [] Cymbalta 120 mg p.o. daily; BuSpar 30 mg p.o. 3 times a day; Risperdal 4 mg p.o. nightly; Lyrica 75 mg p.o. 3 times daily; trazodone 200 mg p.o. nightly; Vistaril 25 mg p.o. 3 times daily Mental Status Examination: [] Patient is a 54-year-old female who is obese and appears older than stated age. She is casually dressed and groomed with good hygiene. She has no apparent psychomotor agitation or retardation. Eye contact is good and speech is normal rate and rhythm and fluent with no pressure. She is cooperative during the interview but appears mildly anxious or flustered at times. Mood is depressed. Affect is constricted. Thought process is goal-directed and organized. Thought content: There is evidence of passive thoughts that she would not care if she . There is no evidence of suicidal or homicidal ideation. She has no suicidal plan. There is no evidence of hallucinations or delusions. Reality testing is intact. Judgment is limited. Insight is limited. Impulsivity is moderate. Diagnoses: [] [place] I: [] Schizoaffective disorder, bipolar type, most recent episode depressed, severe, without psychosis. [place] II: [] [place] III: [] Deferred morbid obesity, insulin-dependent diabetes mellitus type 2, COPD exacerbation, chronic pain [place] IV:[]] Primary support, health issues, noncompliance with insulin at times Plan: [] The patient will continue the IOP program at the [facility] as the support, structure, education, individual and group therapy will hopefully prevent worsening of the patient's symptoms which might require hospitalization. She felt safe during the interview and if at any time she does not feel safe she will let us know or go to the emergency room. The risk, options, possible complications and side effects of medications were discussed with the patient and she understands and accepts these. She agrees to to speak with her therapist about learning relaxation exercises to help her deal with her feelings of shortness of breath and to possibly decrease the severity or help her shorten the panic attacks. Patient will decrease his Cymbalta to 60 mg p.o. daily and increase her Lexapro to 20 mg p.o. daily. Prescription will be sent in for this. The patient will continue to follow-up with her outpatient providers. I will see the patient in 2 weeks or sooner.
--- NOTE | 2019-08-14 14:58 | BH.MDN ---
Multi-Disciplinary Note - Note 30-min Individual Time Started:: 11:40 Date: 08/14/19 Purpose of session/treatment goals addressed:: The purpose of this session was to address current symptoms, stressors, and application of coping skills. Another goal was to further increase client awareness of anxiety symptoms and warning signs. Other topics included: rehearsing calming coping skills. Eye Contact:: Good Motor Activity:: Appropriate Appearance:: Casual Speech:: Appropriate Mood:: Anxious Affect:: Constricted Thoughts:: Linear, Logical, No evidence of hallucinations/delusions noted Staff Interventions:: Therapist used active listening and open-ended questions to explore client's current stressors, symptoms, and application of coping skills. Therapist reflected on positives client has been experiencing to help client reduce negative thinking. Therapist used a scaling tool to help client increase awareness of the different warning signs and symptoms associated with different levels of anxiety. Therapist practiced progressive muscle relaxation with client and reviewed positive affirmations. Client Response:: Client responded well to session, open to meeting with therapist. Client reports yesterday she had a good birthday yesterday which brought client mike. Client stated she received a thoughtful present from a friend and felt more energetic yesterday. Client shared she still feels anxious most of the day nearly every day. Client receptive to learning more about her anxiety and gaining awareness. Client attentive during psychoeducation on levels of anxiety using the scaling tool. Based on the scale, client self-reported being a 6/10 for anxiety today which 10 being panic. Client shared she feels this way because she has some physical symptoms, but she is more present. Client practiced progressive muscle relaxation with therapist. Client reported this was helpful and was willing to practice this twice a day. Client also reviewed her positive self-talk statements. Risks/Concerns:: Client denies any active suicidal ideations, plan, or intent as of 08/14/19. Client continues to endorse wishes of , but she denies that she would ever act on these thoughts. Client is future oriented and reported having a good day yesterday. Progress Toward Goals/Plan:: Client's progress is currently demonstrating mild progress. Client can identify more healthy coping skills and has been trying to apply them. Client reports she struggle with generalization and still has been feeling severely anxious. Client has received more good news recently which has been mildly reducing depressive symptoms. However, client continues to endorse a depressed mood, anhedonia, crying spells, and lack of energy. Client has been experiencing increased medical issues lately which is likely contributing to her mental health. Will continue IOP tx to prevent decompensation, improve use of healthy coping skills, and reduce negative thinking. Time Stopped:: 12:16
--- NOTE | 2019-08-15 09:08 | BH.SGPN.GN ---
This psychotherapy group was provided via telehealth using two-way, real-time interactive telecommunication technology between the patients and the provider. The interactive telecommunication technology included audio and video. The patient was offered telemedicine as an option for care delivery during the COVID-19 pandemic and consented to this option. Patient location: [place] Provider located at [facility] Behaviors/Verbalizations/Mental Status: [] Client alert and oriented, casually dressed. Eye contact fair to good. Motor activity appropriate. Speech within normal limits. Affect congruent, mood anxious, dysthymic. Thoughts linear, logical, no signs of hallucinations or delusions. Reviewed client?s symptom tracker, no risk for suicidal ideation, denies plan, or intent as of 08/15/19. Client Response/Progress/Benefit: [] Client attentive and willing to share with the group. Reports feeling ?a lack of motivation and low energy today as she woke up late this morning and is not feeling the best physically. Pt noted that she often struggles with motivation on days she is experiencing physical health problems. Expressed a desire to skip her doctor?s appointment scheduled for this afternoon as a result but knows she would regret doing so. Identified that using opposite action and taking time to practice progressive muscle relaxation would help improve her mood. Pt noted that waking up late is additionally contributing to current stress levels. Appeared to benefit from identifying areas of progress as well as the supportive and structured group setting. Will continue IOP tx to maintain continue to promote healthy skill application, improve mood stability, and prevent decompensation. Narrative Note: []
--- NOTE | 2019-08-15 10:17 | BH.SGPN.GN ---
This psychotherapy group was provided via telehealth using two-way, real-time interactive telecommunication technology between the patients and the provider. The interactive telecommunication technology included audio and video. The patient was offered telemedicine as an option for care delivery during the COVID-19 pandemic and consented to this option. Patient location: [place] Provider located at [facility] Behaviors/Verbalizations/Mental Status: []Client alert and oriented, casual appearance. Eye contact good. Motor activity appropriate. Speech within normal limits. Affect constricted, mood dysthymic. Thoughts linear, logical, no signs of hallucinations or delusions. Client Response/Progress/Benefit: []Client responded well to session, contributing to discussion and engaged during the activity. Attentive during discussion on the quote. Group identified benefits to change included: personal growth, improving relationships, advancement in job, improved mood, better outlook on life, increased motivation and improved hopefulness. Worked with the group to identify barriers to change, which included: unmanaged emotions, toxic person, lack of knowledge of skills, fear of the unknown, self-sabotage, fear of failure, and cognitive distortions. Client participated along with group in activity where they identified and discussed the emotions related to change. Client reported her initial reaction to change is feeling overwhelmed and wants to give up. Benefited from increased awareness and understanding of emotions, benefits, and barriers related to change. Will continue IOP tx to increase healthy coping, challenge distorted thoughts and prevent decompensation. Narrative Note: []
--- NOTE | 2019-08-20 11:09 | BH.COMM ---
Communication Note - Communication with Client Communication Note: cancelled IOP for today
--- NOTE | 2019-08-21 13:14 | BH.COMM ---
Communication Note - Communication with Client Communication Note: Client cancelled again due to not feeling well from an allergic reaction. Client cancelled group IOP sessions for the rest of the week, but scheduled an individual session with this therapist on Monday. Client had concerns about medication refills. This therapist spoke with IOP nurse about refills. IOP nurse to contact client.
--- NOTE | 2019-08-23 13:55 | BH.COMM_ITS ---
Communication Note - Communication with Client Communication Note: Client was scheduled to meet with this IOP therapist today, but she was admitted to [facility] for medical reasons. Client currently inpatient and unable to attend IOP for the time being. Therapist will follow up with client.
--- NOTE | 2019-08-23 13:57 | BH.DS ---
Discharge Summary - Demographics Date of Admission:: 07/23/19 Discharge Date: 08/23/19 Presenting Problems at Admission:: Client is a 53-year-old female with a history of schizoaffective disorder, MDD, and BERNARD. Client was referred to [facility] by her social media executive at [facility] due to worsening depression, frequent panic attacks, and feeling overwhelmed all the time. Client had one previous psychiatric hospitalization 30 years ago. Client presents with numerous medical concerns including COPD, history of heart attack, and diabetes. Client reported her mental health symptoms have been getting worse for the past several months after being diagnosed with diabetes. At admission, client endorsed a depressed mood, anhedonia, lack of motivation, crying spells, daily panic attacks, lack of energy, hopelessness, worthlessness, and difficulty concentrating. Client stated having passive suicidal ideations, but she denies that she would act on those thoughts. Client reported she feels lonely and often isolates. Client's symptoms were currently impacting her ability to function at her baseline and they are impacting client's quality of life. Discharge Diagnoses:: Schizoaffective disorder, bipolar type, most recent episode depressed, severe, without psychosis F25.0. Reason for Discharge:: Pt. was admitted to [facility] due to gastroenteritis. Pt. is unable to attend [facility] due to needing a higher level of medical care at this time. - Treatment Progress During Treatment & Response: Pt. was demonstrating some progress towards treatment goals, but overall her progress was mild. Pt. was somewhat consistent with attendance, but due to her multiple health issues it was hard for client to make it to group. Pt. was receptive to feedback from staff and peers as well as supportive to group members. Pt. practiced some healthy coping skills including guided imagery, PMR, and affirmations. Prior to admission to [facility], pt. was continuing to experience moderate to severe depressive and anxiety symptoms. Pt. was also reporting isolative behaviors, crying spells, and inconsistency with taking her medications due to physical illness. Pt. was receptive to establishing case management services and was beginning to see a bilingual patient support caseworker at [facility]. Issues Still to be Addressed:: Managing depressive and anxiety symptoms, reducing isolation, increasing healthy supports, challenging negative thinking, applying healthy coping skills with more consistency, and setting boundaries. Discharge Recommendations/Instructions:: Unable to create a discharge plan due to client's unexpected admission to [facility] for medical reasons. [facility]. Pt. did want to find a new psychiatrist and will need to be established with outpatient counseling. This therapist will follow up with client and encourage pt to return to [facility] after pt is discharged from the hospital. Discharge Handout: Complete Discharge Handout with client on aftercare options and continuity of care.
--- NOTE | 2019-09-04 14:00 | BH.COMM_ITS ---
Communication Note - Communication with Client Communication Note: Spoke with client about options for aftercare following her medical discharge from [facility]. Client does not wish to return to [facility] at this time as she feels she is unable to adhere to the attendance policy. Client receptive to reviewing the list of psychiatric services and counseling options that were emailed to client. Client will inform this therapist what option works best and therapist will help client get established. Client reported she wishes to di scontinue her case management services at [facility] at this time. Client was receptive to talking with therapist and cheerful on the phone.
--- NOTE | 2019-09-18 10:50 | BH.COMM ---
Communication Note - Communication with Client Communication Note: Spoke with client via phone whom states that she needs medication refills for Lexapro 20mg daily, Risperidone 4mg daily, Cymbalta 30mg daily, Buspar 30mg daily. States she has an appointment scheduled with Dr Torres this coming Monday09/25/19. Discussed with Dr Mcdaniel and VO to call in supply with no refill on above. Called client pharmacy [place] in [place], s/w pharmacist Krista and clarified above medications and doses correct, script for above called in. Return call to client and aware scripts were called in to [facility].
== END 2019-08-23 14:00 | disposition home or self-care (01) ==
LOC: BHIOP 09:00
PROVIDERS: PCP Family Medicine; Referring Provider Psychiatry & Neurology Psychiatry; Visit Provider Psychiatry & Neurology Psychiatry
DX: F25.0 Schizoaffective disorder, bipolar type (principal); E66.9 Obesity, unspecified; E11.9 Type 2 diabetes mellitus without complications; Z79.4 Long term (current) use of insulin; J44.9 Chronic obstructive pulmonary disease, unspecified; G89.29 Other chronic pain; Z79.899 Other long term (current) drug therapy
CPT/HCPCS: H0035; 90832; 90853

== ENCOUNTER 2019-08-22 12:36 | Observation (INO) | payer MEDICARE, SELFPAY ==
[2019-08-22] VITALS (9 sets, daily range): BP systolic 122–224; BP diastolic 61–104; PULSE 68–76; RESP 16–22; TEMP 36.6–36.7; O2SAT 97–99; BMI 45.3; BMI 43.9
--- NOTE | 2019-08-22 12:50 | EKG12_ITS ---
Test Reason : DYSRHYTHMIA Blood Pressure : / mmHG Vent. Rate : 072 BPM Atrial Rate : 072 BPM P-R Int : 158 ms QRS Dur : 082 ms QT Int : 388 ms P-R-T Axes : 035 021 021 degrees QTc Int : 424 ms Normal sinus rhythm Septal infarct , age undetermined Abnormal ECG Confirmed by MARYAM TAFOYA, JAZZMINE ([id number]), loan expeditor MARTHA SCOTT ([id number]) on 08/27/2019 10:53:24 AM Referred By: NATANAEL Confirmed By:JAZZMINE FRANCISCO MD
[2019-08-22 13:16] LABS: Absolute Lymphocyte Count 1.13 X10^3/uL (0.83-4.51); Absolute Neutrophil Count 11.2 X10^3/uL (2.0-7.7); Basophil# 0.09 X10^3/uL; Basophil% 0.7 % (0-1); Eosinophil# 0.12 X10^3/uL; Eosinophils% 0.9 % (0-5); Hematocrit 46.8 % (37-47); Hemoglobin 15.8 g/dL (12.0-15.0); Lymphocyte # 1.13 X10^3/ul (4.0); Lymphocyte % 8.3 % (19-41); Mean Corp Hgb Conc 33.8 g/dL (32-36); Mean Corpuscular Hgb 29.8 pg (27.0-32.0); Mean Corpuscular Volume 88.3 fL (81-99); Mean Platelet Vol. 10.3 fl (6.2-12.0); Monocyte# 0.96 X10^3/uL; Monocyte% 7.1 % (0-10); NRBC Flagged by Analyzer 0 % (0-5); Neutrophil # 11.18 X10^3/uL (2.7-7.7); Neutrophil % 82.3 % (47-70); Platelet Count 256 K/mm3 (150-450); RBC Distribution Width CV 13.8 % (11.6-14.6); RBC Distribution Width SD 43.9 fl (35.1-43.9); White Blood Count 13.6 K/mm3 (4.4-11.0)
[2019-08-22] MEDS: Metoclopramide 10 MG/2 ML Vial IV (13:22)
[2019-08-22] MEDS: 0.9% Normal Saline 1,000 ML 1000 ML IV (13:22)
[2019-08-22 13:40] LABS: ALB/GLOB Ratio 0.8 RATIO (0.9-2.4); AST(SGOT) 27 U/L (15-37); Alanine Aminotransfer ALT/SGPT 29 U/L (13-56); Albumin, Serum 3.5 g/dL (3.2-5.0); Alkaline Phosphatase 134 U/L (45-117); Anion Gap 8 (5-15); BUN 4 mg/dL (7-18); BUN/Creat Ratio 4.6 RATIO (10-20); Calcium,Total 10.1 mg/dL (8.5-10.1); Chloride 102 mmol/L (98-107); Creatinine, Serum 0.87 mg/dL (0.55-1.02); EST Glomerular Filtration Rate 72 mL/min (>60); Est Glom Filt Rate - Afr Amer 87 mL/min (>60); Estimated Creatinine Clearance 61.15 ml/min; Globulin 4.2 g/dL (2.2-4.2); Glucose 290 mg/dL (74-106); Lipase 42 U/L (73-393); Potassium 3.9 mmol/L (3.5-5.1); Protein, Total 7.7 g/dL (6.4-8.2); Sodium Level 134 mmol/L (136-145)
[2019-08-22 13:58] LABS: Lactic Acid 1.8 mmol/L (0.4-1.9)
[2019-08-22 14:03] LABS: Bacteria 0 SEEN /hpf (None Seen); Mucous, Urine 0 SEEN /hpf (<or=2+)
[2019-08-22] MEDS: proMETHazine 25 MG/ML Syringe 12.5 MG IV (14:04)
[2019-08-22 14:07] LABS: Color, Urine Straw (Yellow); Glucose, Dipstick 1000 mg/dl (Normal); Ketone-Dipstick Negative (Negative); Leukocyte Esterase-Dipstick 25 /ul (Negative); Nitrite-Dipstick Negative (Negative); Occult Blood-Urine 10 /ul (Negative); Protein-Dipstick 30 mg/dl (Negative); Urine Bilirubin Dipstick Negative (Negative); Urine Clarity Sl. Cloudy (Clear); Urine Urobilinogen Normal (Normal)
[2019-08-22 14:27] LABS: Red Blood Cells-Urine 0-5 SEEN /hpf (0-5); Squamous Epithelial Cells - UA 0-5 SEEN /hpf (5-10); White Blood Cells 0-5 SEEN /hpf (0-5)
--- NOTE | 2019-08-22 14:29 | ED.DCSUM_ITS ---
- ER Visit Summary Date of Service: 08/22/19 Chief Complaint: [Nausea vomiting and diarrhea] History of Present Illness: The patient is a 54 F [does the emergency department nausea vomiting diarrhea for 6 days. Patient has Phenergan at home but she not get any relief. She is vomiting multiple times throughout the day. She is also having more than 3-4 watery stools a day. Patient has been taking Pepto- Bismol and noted that her stool was black. Patient states that she was on Keflex but stopped taking it because she thought maybe it was making her sick. Apparently she was on Keflex for swelling in her leg. History of coronary artery disease, type 2 diabetes, hypertension, high cholesterol, COPD, and schizophrenia. She described mild abdominal discomfort. She denies urinary symptoms.] Physical Examination: [HEENT-PERRLA, EOMI. Cranial nerves II through XII grossly intact. TMs clear. Mucous membranes moist. No adenopathy. Cardiovascular-regular rate and rhythm without murmur or ectopy Lungs-clear to auscultation, chest wall stable without crepitus or subcu emp hysema Abdomen-normoactive bowel sounds, soft, nontender, no rebound or rigidity, no peritoneal signs. Extremities-intact ?4, normal range of motion, normal pulses, atraumatic] Test Results: [CBC with differential obtained showed a slightly elevated white count of 13.6, hemoglobin 15.8, hematocrit 47, platelet 256. Chemistries unremarkable. Liver enzymes unremarkable. Troponin less than 0.015. EKG obtained showed sinus rhythm with a ventricular rate of 72 bpm with no acute segment changes.] Urinalysis pending. Emergency Department Course and Treatment: [IV line established. Patient was given Reglan 10 mg IV. She continued complaint of nausea. She was given Phenergan 12.5 mg IV. She continues to complain of nausea.] Treatment Plan: Admit [] Disposition: [Admit] Impression: [Intractable nausea and vomiting] This note was generated with [employer] dictation software. It may contain incorrect words, spelling, and punctuation that were not noted in review of the chart prior to signing ED Disposition - Plan for ED Patient: Referrals: Janel Taylor MD [Primary Care Provider] -
--- NOTE | 2019-08-22 15:10 | HP.PCM_ITS ---
<Meseret Delgado - Last Filed: 08/22/19 15:50> Problem List (1) Stage 2 moderate COPD by GOLD classification Status: Chronic (2) Acute and chronic respiratory failure with hypoxia Status: Chronic (3) Cataract Status: Chronic (4) Iron deficiency Status: Chronic (5) Iron deficiency anemia following bariatric surgery Status: Chronic (6) History of gastric bypass Status: Chronic (7) HTN (hypertension) Status: Chronic (8) Peptic ulcer Status: Chronic (9) Chronic neutrophilia Status: Chronic (10) Osteoarthritis Status: Chronic (11) Morbid obesity Status: Chronic (12) Neutrophilic leukocytosis Status: Chronic (13) Type 2 diabetes mellitus Status: Chronic (14) Schizophrenia Status: Chronic (15) Hip osteoarthritis Status: Chronic Comment: with chronic pain-right hip (16) Iron deficiency anemia due to dietary causes Status: Chronic Comment: exact cause of iron def anemia unknown-felt likely secondary to past history gastric bypass- although chronic blood loss etiology a possibility (has never had colonoscopy)- further workup including hemoccult stool is recommended (17) Morbid obesity with BMI of 45.0-49.9, adult Status: Chronic (18) Pulmonary hypertension Status: Chronic (19) Chronic narcotic use Status: Chronic (20) Depression Status: Chronic (21) Gastroesophageal reflux disease Status: Chronic (22) Parathyroid abnormality Status: Chronic (23) History of PTCA Status: Chronic (24) Vitamin D deficiency Status: Chronic (25) Hyperlipidemia Status: Chronic (26) Thyroid nodule Status: Chronic Comment: deemed to be benign. (27) Benign essential hypertension Status: Chronic (28) CAD (coronary artery disease) Status: Chronic (29) RACHEL (obstructive sleep apnea) Status: Chronic Comment: 17/13 cm of water (30) Spinal stenosis of lumbar region at multiple levels Status: Chronic (31) Tobacco abuse Status: Chronic History of Present Illness Date of Admission: 08/22/19 Chief Complaint: Nausea, vomiting, diarrhea. The patient is a 54 year old F who presents to the emergency room with intractable nausea, vomiting, diarrhea. Patient reports her symptoms began F riday evening. She denies blood in stool. Reports chronic black stools. She denies abdominal pain. Denies fever, reports chills. Patient states she feels very tired and has no energy. Patient states she has not been able to keep much down due to persistent vomiting. She reports she is been having 3-4 episodes of diarrhea per day however she has not had any episodes yet today. Patient was r ecently placed on Keflex for suspected cellulitis of her leg which she discontinued as she felt it may be contributing to her symptoms. She has a past medical history of COPD with chronic approximate respiratory failure, type 2 diabetes mellitus, CAD with history of PCI x5, history of PE, history of peptic ulcer disease/GERD, chronic pain syndrome, hypertension, hyperlipidemia, iron deficiency anemia, tobacco dependence, schizophrenia, anxiety, depression, RACHEL. Past Medical History Past Medical History (Chronic Problems): Chronic Problems (Last Updated 07/24/19 @ 14:23 by Aleida Reyna) Stage 2 moderate COPD by GOLD classification (Chronic) Acute and chronic respiratory failure with hypoxia (Chronic) Cataract (Chronic) Iron deficiency (Chronic) Iron deficiency anemia following bariatric surgery (Chronic) History of gastric bypass (Chronic) HTN (hypertension) (Chronic) Peptic ulcer (Chronic) Chronic neutrophilia (Chronic) Osteoarthritis (Chronic) Morbid obesity (Chronic) Neutrophilic leukocytosis (Chronic) Type 2 diabetes mellitus (Chronic) Schizophrenia (Chronic) Hip osteoarthritis (Chronic) with chronic pain-right hip Iron deficiency anemia due to dietary causes (Chronic) exact cause of iron def anemia unknown-felt likely secondary to past history gastric bypass- although chronic blood loss etiology a possibility (has never had colonoscopy)-further workup including hemoccult stool is recommended Morbid obesity with BMI of 45.0-49.9, adult (Chronic) Pulmonary hypertension (Chronic) Chronic narcotic use (Chronic) Depression (Chronic) Gastroesophageal reflux disease (Chronic) Parathyroid abnormality (Chronic) History of PTCA (Chronic) Vitamin D deficiency (Chronic) Hyperlipidemia (Chronic) Thyroid nodule (Chronic) deemed to be benign. Benign essential hypertension (Chronic) CAD (coronary artery disease) (Chronic) RACHEL (obstructive sleep apnea) (Chronic) 17/13 cm of water Spinal stenosis of lumbar region at multiple levels (Chronic) Tobacco abuse (Chronic) Medical History: Medical History (Last Updated 07/24/19 @ 14:23 by Aleida Reyna) HTN (hypertension) (Chronic) I10 Peptic ulcer (Chronic) K27.9 Chronic neutrophilia (Chronic) D72.828 Osteoarthritis (Chronic) M19.90 Morbid obesity (Chronic) E66.01 Neutrophilic leukocytosis (Chronic) D72.9 Type 2 diabetes mellitus (Chronic) E11.9 Schizophrenia (Chronic) F20.9 Hip osteoarthritis (Chronic) M16.9 with chronic pain-right hip Iron deficiency anemia due to dietary causes (Chronic) D50.8 exact cause of iron def anemia unknown-felt likely secondary to past history gastric bypass- although chronic blood loss etiology a possibility (has never had colonoscopy)-further workup including hemoccult stool is recommended Morbid obesity with BMI of 45.0-49.9, adult (Chronic) E66.01, Z68.42 Pulmonary hypertension (Chronic) I27.2 Chronic narcotic use (Chronic) F11.90 Depression (Chronic) F32.9 Gastroesophageal reflux disease (Chronic) K21.9 Parathyroid abnormality (Chronic) E21.5 Vitamin D deficiency (Chronic) E55.9 Hyperlipidemia (Chronic) E78.5 Thyroid nodule (Chronic) E04.1 deemed to be benign. Benign essential hypertension (Chronic) I10 CAD (coronary artery disease) (Chronic) I25.10 RACHEL (obstructive sleep apnea) (Chronic) G47.33 17/13 cm of water Spinal stenosis of lumbar region at multiple levels (Chronic) M48.06 Tobacco abuse (Chronic) Z72.0 Bipolar 2 disorder F31.81 History of pulmonary embolism Z86.711 Schizoaffective disorder F25.9 Allergies amoxicillin Allergy (Verified 08/22/19 12:45) Itching erythromycin base Allergy (Verified 08/22/19 12:45) Unknown methadone Allergy (Verified 08/22/19 12:45) Itching metolazone Allergy (Verified 08/22/19 12:45) Unknown Penicillins Allergy (Verified 08/22/19 12:45) Hives Sulfa (Sulfonamide Antibiotics) Allergy (Verified 08/22/19 12:45) Hives acetaminophen [From Percocet] Adverse Reaction (Verified 08/22/19 12:45) Itching clarithromycin [From Biaxin] Adverse Reaction (Verified 08/22/19 12:45) Nausea ibuprofen Adverse Reaction (Verified 08/22/19 12:45) 3 BLEEDING ULCERS 3 BLEEDING ULCERS morphine Adverse Reaction (Verified 08/22/19 12:45) HEADACHE HEADACHE oxycodone [From Percocet] Adverse Reaction (Verified 08/22/19 12:45) Itching Home Medications: Ambulatory Orders Medication Instructions Recorded Atorvastatin Calcium [Lipitor] 80 mg PO QHS 08/22/15 Clopidogrel Bisulfate [Plavix] 75 mg PO QHS 08/22/15 Metoprolol(XL)Succ [Toprol Xl 50 mg PO DAILY 08/22/15 (Beta Trino)] Nitroglycerin 0.4 mg SL PRN PRN 11/08/16 Duloxetine Hcl [Cymbalta] 60 mg PO DAILY 01/16/17 amlodipine 10 mg tablet 10 mg PO DAILY tab 05/02/17 potassium chloride 10 mEq 10 meq PO DAILY #60 tab 06/16/17 tablet,extended release(part/cryst) Pregabalin [Lyrica] 75 mg PO TID 03/08/18 Risperidone 4 mg PO QHS 03/08/18 Tizanidine HCl 6 mg PO TID PRN PRN 03/08/18 traZODone [Desyrel] 200 mg PO QHS 03/08/18 Furosemide [Lasix] 20 mg PO DAILY 11/20/18 Lisinopril 20 mg PO QHS 11/20/18 Mirabegron [Myrbetriq] 25 mg PO DAILY 11/20/18 Apixaban [Eliquis] 5 mg PO BID 05/02/19 Fluticasone/Salmeterol [Advair Hfa 2 puff INHALATION DAILY 05/02/19 230-21 Mcg Inhaler] montelukast 10 mg tablet 10 mg PO QHS #30 tab 05/15/19 tiotropium bromide 2.5 2 puff INHALATION DAILY #4 g 06/11/19 mcg/actuation mist for inhalation albuterol sulfate 90 mcg/actuation 2 puff INHALATION Q6H PRN 06/27/19 aerosol inhaler buspirone 30 mg tablet 30 mg PO BID tab 06/27/19 sucralfate 1 gram tablet 1 g PO QACHS 06/27/19 Cephalexin [Keflex] 500 mg PO Q8H 08/22/19 Duloxetine HCl 30 mg PO DAILY 08/22/19 Escitalopram Oxalate [Lexapro] 20 mg PO DAILY 08/22/19 Insulin Glargine [Lantus SoloStar 12 units SUBCUT QHS 08/22/19 Pen] Nystatin [Nystop] 1 applic TP 4X/DAY 08/22/19 Pantoprazole Sodium [Protonix] 40 mg PO BID 08/22/19 proMETHazine tablet [Phenergan 12.5 - 25 mg PO BID PRN PRN 08/22/19 tablet] Surgical History: Surgical History (Last Reviewed 07/23/19 @ 12:33 by Meseret Amado) History of PTCA (Chronic) Z98.61 History of appendectomy Z98.890, Z90.49 History of carpal tunnel surgery of left wrist Z98.890 History of cholecystectomy Z98.890, Z90.49 History of gastric bypass Z98.84 History of tonsillectomy Z98.890, Z90.89 history of carpal tunnel release left wrist 2018 history of right hip surgery Surgical History: appendectomy, cholecystectomy, tonsillectomy, - - Right lower extremity surgery x3 as well as bone grafting, appendectomy, cholecystectomy, gastric bypass, hernia repairs, hip replacement, tonsillectomy. 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 Lives: Alone Smoking Status: Current every day smoker Tobacco Use: Cigarettes Alcohol: None Drugs: None - *Family History Sibling Family History: Family History (Last Reviewed 08/22/19 @ 15:20 by ERROL Lunsford) Mother Heart disease Cancer Father Hypertension Arthritis Hyperlipemia Grandmother Breast cancer Heart disease Grandfather Heart disease History Items: Hypertension Paternal Family History: Family History (Last Reviewed 08/22/19 @ 15:20 by ERROL Lunsford) Mother Heart disease Cancer Father Hypertension Arthritis Hyperlipemia Grandmother Breast cancer Heart disease Grandfather Heart disease History Items: High Cholesterol, Heart Disease, Hypertension Maternal Family History: Family History (Last Reviewed 08/22/19 @ 15:20 by ERROL Lunsford) Mother Heart disease Cancer Father Hypertension Arthritis Hyperlipemia Grandmother Breast cancer Heart disease Grandfather Heart disease History Items: Cancer, Heart Disease Review of Systems Constitutional: Reports: Chills, Malaise, Weakness, Fatigue. Denies: Fever HEENT: Denies: Head Aches, Sinus Congestion, Sinus Drainage Cardiovascular: Denies: Chest Pain, Edema, Palpitations, Syncope Respiratory: Denies: Cough, Shortness of breath at rest, Sputum production Gastrointestinal: Reports: Diarrhea, Nausea, Vomiting. Denies: Abdominal Pain Genitourinary: Denies: Dysuria Musculoskeletal: Denies: Joint Pain, Joint Tenderness Skin: Denies: Rash, Wounds Neurological: Denies: Numbness, Tingling, Focal weakness Psychiatric: Reports: Anxiety, Depression. Denies: Homicidal Ideations, Suicidal Ideations Hematologic/ Lymphatic: Denies: Easy Bruising, Easy Bleeding VTE Information - Inpt Only VTE Present on Admission: No VTE Mechan Device Prophylaxis: None VTE Pharm Prophylaxis ordered?: Yes - Physical Exam Vitals/I&O's: Vital Signs Temp Pulse Resp BP Pulse Ox 98 F 75 20 H 196/98 H 98 08/22/19 14:51 08/22/19 14:51 08/22/19 14:51 08/22/19 14:51 08/22/19 14:51 Oxygen Delivery Method Room Air Weight: 255 lb 11.779 oz Body Mass Index (BMI) 45.3 Finger Stick Blood Glucose 422 General: Alert, Oriented x3, Cooperative HEENT: Atraumatic, PERRLA, EOMI, Normocephalic Neck: Supple, No JVD, Negative Carotid Bruits Lungs: Clear to auscultation, Normal air movement Cardiovascular: Regular rate, No murmurs Abdomen: Bowel Sounds Present, Soft, Non Tender, Non-Distended, Obese Extremities: No clubbing, No cyanosis, No edema, Capillary Refill Less than 3 Seconds Skin: No rashes, No breakdown Musculoskeletal: No Tenderness to Palpation of Joints or Extremities Neurological: Cranial nerves II-XII grossly intact, Neuro grossly intact Psych/Mental Status: Normal Affect, Appropriate Laboratory Results 08/22/19 13:03: WBC 13.6 H, RBC 5.30, Hgb 15.8 H, Hct 46.8, MCV 88.3, MCH 29.8, MCHC 33.8, RDW Std Deviation 43.9, RDW Coeff of [place] 13.8, Plt Count 256, MPV 10.3, Immature Gran % (Auto) 0.700, Neut % (Auto) 82.3 H, Lymph % (Auto) 8.3 L, [place] % (Auto) 7.1, Eos % (Auto) 0.9, Baso % (Auto) 0.7, Absolute Neuts (auto) 11.2 H, Absolute Lymphs (auto) 1.13, Nucleated RBC % 0 08/22/19 13:03: Sodium 134 L, Potassium 3.9, Chloride 102, Carbon Dioxide 24.0, Anion Gap 8, BUN 4 L, Creatinine 0.87, Estim Creat Clear Calc 61.15, Est GFR (MDRD) Af Amer 87, Est GFR (MDRD) Non-Af 72, BUN/Creatinine Ratio 4.6 L, Glucose 290 H, Calcium 10.1, Total Bilirubin 0.60, AST 27, ALT 29, Alkaline Phosphatase 134 H, Troponin I < 0.015, Total Protein 7.7, Albumin 3.5, Globulin 4.2, Albumin/Globulin Ratio 0.8 L, Lipase 42 L 08/22/19 13:20: Lactic Acid 1.8 08/22/19 13:50: Urine Color Straw, Urine Clarity Sl. Cloudy, Urine pH 6.0, Ur Specific [place] 1.010, Urine Protein 30 H, Urine Glucose (UA) 1000 H, Urine Ketones Negative, Urine Occult Blood 10 H, Urine Nitrite Negative, Urine Bilirubin Negative, Urine Urobilinogen Normal, Ur Leukocyte Esterase 25 H, Urine RBC 0-5 SEEN, Urine WBC 0-5 SEEN, Ur Squamous Epith Cells 0-5 SEEN, Urine Bacteria 0 SEEN, Urine Mucus 0 SEEN Assessment/Plan All Active Problems (Last Updated 07/24/19 @ 14:23 by Aleida Reyna) Diarrhea (Resolved) Hypokalemia (Resolved) 1. Intractable nausea, vomiting, diarrhea-suspect viral gastroenteritis. IV fluids. PRN antiemetics. Stool pending for C. difficile. Check stool for enteric pathogen panel. 2. Type 2 diabetes mellitus, poorly controlled-hemoglobin A1c April 2019 11.7%. Continue home Lantus regimen with sliding scale insulin. Repeat hemoglobin A1c. 3. Chronic COPD with chronic hypoxic respiratory failure- Patient wears supplemental oxygen with exertion only. Continue supplement oxygen to maintain O2 at or above 90%. Follows with Dr. Willoughby, pulmonary medicine. PRN Albuterol and DuoNeb aerosols. 4. CAD status post PCI x5-continue Eliquis, Plavix, statin, lisinopril, metoprolol. 5. History of PE-on anticoagulation with Eliquis. 6. History of peptic ulcer disease/GERD-continue omeprazole regimen. 7. Chronic pain syndrome-continue home Lyrica, tizanidine regimen. PRN pain regimen. 8. Hypertension-continue amlodipine, Lasix, lisinopril, metoprolol. 9. Hyperlipidemia-continue statin regimen. 10. Iron deficiency anemia-stable, trend CBC. 11. Tobacco dependence-encourage cessation. 12. Schizophrenia/anxiety/depression-continue home BuSpar, Cymbalta, Risperdal and trazodone regimen. 13. RACHEL-continue CPAP nightly. DVT prophylaxis- Eliquis This patient was seen by ERROL Lunsford under the supervision of Dr. Flores. <Mirtha Flores - Last Filed: 08/22/19 16:29> History of Present Illness Date of Admission: 08/22/19 Agree with the above and the below is a reflection of my independent history and physical exam The patient is a 54 year old F who presents after 5 days of nausea, vomiting and diarrhea. She states that it started on Monday and she was taking Keflex for a LE cellulitis, which has since resolved, and she stopped it as she thought that is was causing her sx. She states that she has not had any diarrhea yet today. She states that she was able to keep some PO down yesterday. She has minimal abdominal pain. She has been urinating without difficulty and urine production is WNL. Her VS are stable other than elevated BP. Her lab work is unremarkable. She has a complicated PMH as noted above. Past Medical History Medical History: Medical History (Last Reviewed 08/22/19 @ 16:[address] Mirtha Flores, DO) HTN (hypertension) (Chronic) I10 Peptic ulcer (Chronic) K27.9 Chronic neutrophilia (Chronic) D72.828 Osteoarthritis (Chronic) M19.90 Morbid obesity (Chronic) E66.01 Neutrophilic leukocytosis (Chronic) D72.9 Type 2 diabetes mellitus (Chronic) E11.9 Schizophrenia (Chronic) F20.9 Hip osteoarthritis (Chronic) M16.9 with chronic pain-right hip Iron deficiency anemia due to dietary causes (Chronic) D50.8 exact cause of iron def anemia unknown-felt likely secondary to past history gastric bypass- although chronic blood loss etiology a possibility (has never had colonoscopy)-further workup including hemoccult stool is recommended Morbid obesity with BMI of 45.0-49.9, adult (Chronic) E66.01, Z68.42 Pulmonary hypertension (Chronic) I27.2 Chronic narcotic use (Chronic) F11.90 Depression (Chronic) F32.9 Gastroesophageal reflux disease (Chronic) K21.9 Parathyroid abnormality (Chronic) E21.5 Vitamin D deficiency (Chronic) E55.9 Hyperlipidemia (Chronic) E78.5 Thyroid nodule (Chronic) E04.1 deemed to be benign. Benign essential hypertension (Chronic) I10 CAD (coronary artery disease) (Chronic) I25.10 RACHEL (obstructive sleep apnea) (Chronic) G47.33 17/13 cm of water Spinal stenosis of lumbar region at multiple levels (Chronic) M48.06 Tobacco abuse (Chronic) Z72.0 Bipolar 2 disorder F31.81 History of pulmonary embolism Z86.711 Schizoaffective disorder F25.9 Allergies amoxicillin Allergy (Verified 08/22/19 12:45) Itching erythromycin base Allergy (Verified 08/22/19 12:45) Unknown methadone Allergy (Verified 08/22/19 12:45) Itching metolazone Allergy (Verified 08/22/19 12:45) Unknown Penicillins Allergy (Verified 08/22/19 12:45) Hives Sulfa (Sulfonamide Antibiotics) Allergy (Verified 08/22/19 12:45) Hives acetaminophen [From Percocet] Adverse Reaction (Verified 08/22/19 12:45) Itching clarithromycin [From Biaxin] Adverse Reaction (Verified 08/22/19 12:45) Nausea ibuprofen Adverse Reaction (Verified 08/22/19 12:45) 3 BLEEDING ULCERS 3 BLEEDING ULCERS morphine Adverse Reaction (Verified 08/22/19 12:45) HEADACHE HEADACHE oxycodone [From Percocet] Adverse Reaction (Verified 08/22/19 12:45) Itching Surgical History: Surgical History (Last Reviewed 08/22/19 @ 16:[address] Mirtha Flores DO) History of PTCA (Chronic) Z98.61 History of appendectomy Z98.890, Z90.49 History of carpal tunnel surgery of left wrist Z98.890 History of cholecystectomy Z98.890, Z90.49 History of gastric bypass Z98.84 History of tonsillectomy Z98.890, Z90.89 history of carpal tunnel release left wrist 2018 history of right hip surgery - *Family History Sibling Family History: Family History (Last Reviewed 08/22/19 @ 16:[address] Mirtha Flores DO) Mother Heart disease Cancer Father Hypertension Arthritis Hyperlipemia Grandmother Breast cancer Heart disease Grandfather Heart disease Paternal Family History: Family History (Last Reviewed 08/22/19 @ 16:[address] Mirtha Flores DO) Mother Heart disease Cancer Father Hypertension Arthritis Hyperlipemia Grandmother Breast cancer Heart disease Grandfather Heart disease Maternal Family History: Family History (Last Reviewed 08/22/19 @ 16:[address] Mirtha Flores DO) Mother Heart disease Cancer Father Hypertension Arthritis Hyperlipemia Grandmother Breast cancer Heart disease Grandfather Heart disease Review of Systems Constitutional: Reports: Anorexia, Chills, Malaise, Weakness, Fatigue. Denies: Fever, Night Sweats, Weight Change Eyes: Denies: Blurred vision, Drainage, Pain, Redness, Vision Change HEENT: Reports: Dysphasia, Ear Pain, Head Aches, Nasal Congestion, Sinus Congestion, Sinus Drainage, Sore Throat Cardiovascular: Denies: Chest Pain, Chest Pressure, Chest Tightness, Edema, Orthopnea, Palpitations, Paroxysmal Noc. Dyspnea, Syncope Respiratory: Denies: Cough, Hemoptysis, Pleuritic Pain, Shortness of Breath, Shortness of breath at rest, Shortness of breath upon exertion, Sputum production, Wheezing Gastrointestinal: Reports: Diarrhea - resolved, Nausea, Vomiting. Denies: Abdominal Pain, Constipation, Hematemesis, Hematochezia, Melena Genitourinary: Denies: Dysuria, Frequency, Hematuria, Hesitancy, Incontinence, Nocturia, Retention, Urgency Musculoskeletal: Reports: Back Pain. Denies: Joint Pain, Joint stiffness, Joint swelling, Joint Tenderness, Neck Pain Skin: Denies: Dryness, Jaundice, Lesions, Pruritis, Rash, Skin Changes, Wounds Neurological: Denies: Balance problems, Change in Speech, Confusion, Focal weakness, Headaches, Incoordination, Numbness, Tingling, Tremor, Seizures Psychiatric: Reports: Anxiety, Depression. Denies: Homicidal Ideations, Suicidal Ideations Endocrine: Denies: Change in Body Habitus, Heat/ Cold Intolerance, Polydipsia, Polyuria Hematologic/ Lymphatic: Denies: Easy Bruising, Easy Bleeding, Petechiae, Purpura - Physical Exam Vitals/I&O's: Vital Signs Temp Pulse Resp BP Pulse Ox 98 F 69 18 153/87 H 99 08/22/19 14:51 08/22/19 15:38 08/22/19 15:38 08/22/19 15:38 08/22/19 15:38 Oxygen Delivery Method Room Air Weight: 116 kg Body Mass Index (BMI) 45.3 Finger Stick Blood Glucose 422 Intake and Output for Last 24 Hours 08/20/19 08/21/19 08/22/19 23:59 23:59 23:59 Intake Total 1000 / 1000 Balance 1000 / 1000 General: Alert, Oriented x3, Cooperative, No apparent distress, Well developed, Well nourished HEENT: Atraumatic, PERRLA, EOMI, Normocephalic, EAC Clear Oral: Moist Mucosa, No Gingival or Mucosal Lesions/ Ulcerations, - - Mallampati 3 Neck: Supple, No JVD, Negative Carotid Bruits, Negative Hepatojugular Reflux, No Nodes, No Nuchal Rigidity, Trachea Midline, Thyroid Normal Size and Texture Lungs: Clear to auscultation, Normal air movement, No rhonchi, No wheeze, No rales Cardiovascular: Regular rate, Regular Rhythm, Normal S1, Normal S2, No murmurs, No rub noted, No Gallop Abdomen: Bowel Sounds Present, Soft, Non-Distended, Tender - very mild and diffuse Extremities: No clubbing, No cyanosis, No edema, Capillary Refill Less than 3 Seconds, Peripheral Pulses Normal Skin: No rashes, No breakdown Musculoskeletal: No Tenderness to Palpation of Joints or Extremities, No Muscle Wasting Lymphatic: No Cervical, Supraclavicular, or Inguinal Adenopathy Neurological: Cranial nerves II-XII grossly intact, Neuro grossly intact, Motor Exam 5/5 strength throughout, Muscle tone normal, Sensory exam intact to light touch and pain, Coordination normal Psych/Mental Status: Normal Affect, Appropriate, Alert and oriented to time, place, person, mood and affect Laboratory Results 08/22/19 13:03: WBC 13.6 H, RBC 5.30, Hgb 15.8 H, Hct 46.8, MCV 88.3, MCH 29.8, MCHC 33.8, RDW Std Deviation 43.9, RDW Coeff of [place] 13.8, Plt Count 256, MPV 10.3, Immature Gran % (Auto) 0.700, Neut % (Auto) 82.3 H, Lymph % (Auto) 8.3 L, [place] % (Auto) 7.1, Eos % (Auto) 0.9, Baso % (Auto) 0.7, Absolute Neuts (auto) 11.2 H, Absolute Lymphs (auto) 1.13, Nucleated RBC % 0 08/22/19 13:03: Sodium 134 L, Potassium 3.9, Chloride 102, Carbon Dioxide 24.0, Anion Gap 8, BUN 4 L, Creatinine 0.87, Estim Creat Clear Calc 61.15, Est GFR (MDRD) Af Amer 87, Est GFR (MDRD) Non-Af 72, BUN/Creatinine Ratio 4.6 L, Glucose 290 H, Calcium 10.1, Total Bilirubin 0.60, AST 27, ALT 29, Alkaline Phosphatase 134 H, Troponin I < 0.015, Total Protein 7.7, Albumin 3.5, Globulin 4.2, Albumin/Globulin Ratio 0.8 L, Lipase 42 L 08/22/19 13:20: Lactic Acid 1.8 08/22/19 13:50: Urine Color Straw, Urine Clarity Sl. Cloudy, Urine pH 6.0, Ur Specific [place] 1.010, Urine Protein 30 H, Urine Glucose (UA) 1000 H, Urine Ketones Negative, Urine Occult Blood 10 H, Urine Nitrite Negative, Urine Bilirubin Negative, Urine Urobilinogen Normal, Ur Leukocyte Esterase 25 H, Urine RBC 0-5 SEEN, Urine WBC 0-5 SEEN, Ur Squamous Epith Cells 0-5 SEEN, Urine Bacteria 0 SEEN, Urine Mucus 0 SEEN Assessment/Plan Agree with the above with the following additions based on my own history and physical exam Intractable N/V/D -seems to be improving -will hydrate -suspect viral -no diarrhea today -antiemetics -reevaluate in the am Hyponatremia -Mild -hydrate and recheck in am -? if med related--> pt is on a lot of meds that could contribute DM-2 Uncontrolled -encourage better compliance -repeat A1c -Lantus with home dose -CLD for now -SSI Code status -Full
[2019-08-22] MEDS: HYDROcodone Bitartrate/Apap 5/325 Tablet PO ×3 (16:15→20:06)
[2019-08-22 17:29] LABS: Hemoglobin A1c 10.8 % (3.8-5.6)
[2019-08-22] MEDS: 0.9% Saline Lock 10 ML Syringe IV (17:34)
[2019-08-22] MEDS: 0.9% Normal Saline 1,000 ML 100 ML IV (17:34)
[2019-08-22] MEDS: Ondansetron 4 MG/2 ML Vial IV (17:36)
[2019-08-22] MEDS: Insulin Lispro 100 UNIT/ML INSULN.PEN SC ×2 (18:05→21:54)
[2019-08-22] MEDS: tiZANidine HCl 2 MG Tablet 6 MG PO (18:05)
[2019-08-22] MEDS: Metoprolol(XL)Succ 25 MG Tablet 50 MG PO (18:46)
[2019-08-22] MEDS: Albuterol 2.5 MG/3 ML VIAL.NEB. INHALATION (19:40)
[2019-08-22] MEDS: traZODone 100 MG Tablet 200 MG PO (21:35)
[2019-08-22] MEDS: Montelukast 10 MG Tablet PO (21:36)
[2019-08-22] MEDS: Sucralfate 1 GM Tablet PO (21:36)
[2019-08-22] MEDS: Clopidogrel Bisulfate 75 MG Tablet PO (21:36)
[2019-08-22] MEDS: Atorvastatin Calcium 80 MG Tablet PO (21:36)
[2019-08-22] MEDS: RisperiDONE 2 MG Tablet 4 MG PO (21:36)
[2019-08-22] MEDS: busPIRone 15 MG TABLET 30 MG PO (21:36)
[2019-08-22] MEDS: APIXABAN 5 MG TABLET PO (21:36)
[2019-08-22] MEDS: Pantoprazole Sodium 40 MG Tablet PO (21:36)
[2019-08-22] MEDS: Lisinopril 20 MG Tablet PO (21:39)
[2019-08-22] MEDS: Pregabalin 75 MG Capsule PO (21:54)
[2019-08-22 22:05] LABS: Bedside Glucose 177 mg/dL (70-110)
[2019-08-23] VITALS (10 sets, daily range): BP systolic 113–130; BP diastolic 51–62; PULSE 59–68; RESP 12–25; TEMP 36.6–37.2; O2SAT 97–100
--- NOTE | 2019-08-23 00:08 | PCM.PN.BLA ---
Progress Note Nurse reported patient is complaining of itching and think that she has yeast infection. Fluconazole 150 mg x 1 ordered. Of note patient does not have a kidney injury.
[2019-08-23] MEDS: Albuterol 2.5 MG/3 ML VIAL.NEB. INHALATION ×2 (01:24→06:56)
[2019-08-23] MEDS: tiZANidine HCl 2 MG Tablet 6 MG PO ×4 (01:38→23:04)
[2019-08-23] MEDS: Ondansetron 4 MG/2 ML Vial IV ×3 (01:38→19:52)
[2019-08-23] MEDS: FLUCONAZOLE 150 MG TABLET PO (01:39)
[2019-08-23] MEDS: 0.9% Normal Saline 1,000 ML 100 ML IV ×2 (03:24→13:19)
[2019-08-23 06:38] LABS: Absolute Lymphocyte Count 1.95 X10^3/uL (0.83-4.51); Absolute Neutrophil Count 8.7 X10^3/uL (2.0-7.7); Basophil# 0.12 X10^3/uL; Eosinophil# 0.17 X10^3/uL; Eosinophils% 1.4 % (0-5); Hematocrit 41.1 % (37-47); Hemoglobin 13.5 g/dL (12.0-15.0); Lymphocyte # 1.95 X10^3/ul (4.0); Lymphocyte % 16.2 % (19-41); Mean Corp Hgb Conc 32.8 g/dL (32-36); Mean Corpuscular Volume 91.3 fL (81-99); Mean Platelet Vol. 10.4 fl (6.2-12.0); Monocyte# 1.09 X10^3/uL; NRBC Flagged by Analyzer 0 % (0-5); Neutrophil # 8.67 X10^3/uL (2.7-7.7); Neutrophil % 71.9 % (47-70); Platelet Count 232 K/mm3 (150-450); RBC Distribution Width CV 14.2 % (11.6-14.6); RBC Distribution Width SD 46.6 fl (35.1-43.9); White Blood Count 12.1 K/mm3 (4.4-11.0)
[2019-08-23] MEDS: Pregabalin 75 MG Capsule PO ×3 (06:42→22:08)
[2019-08-23] MEDS: Sucralfate 1 GM Tablet PO ×4 (06:42→22:08)
[2019-08-23] MEDS: Insulin Lispro 100 UNIT/ML INSULN.PEN SC ×4 (06:42→22:10)
[2019-08-23 06:50] LABS: Anion Gap 6 (5-15); BUN 4 mg/dL (7-18); BUN/Creat Ratio 4.7 RATIO (10-20); Calcium,Total 8.8 mg/dL (8.5-10.1); Chloride 105 mmol/L (98-107); Creatinine, Serum 0.85 mg/dL (0.55-1.02); EST Glomerular Filtration Rate 74 mL/min (>60); Est Glom Filt Rate - Afr Amer 90 mL/min (>60); Estimated Creatinine Clearance 62.59 ml/min; Glucose 237 mg/dL (74-106); Potassium 3.5 mmol/L (3.5-5.1); Sodium Level 138 mmol/L (136-145)
[2019-08-23 07:15] LABS: Bedside Glucose 234 mg/dL (70-110)
[2019-08-23] MEDS: HYDROcodone Bitartrate/Apap 5/325 Tablet PO ×3 (08:00→22:48)
[2019-08-23] MEDS: busPIRone 15 MG TABLET 30 MG PO ×2 (08:01→22:08)
[2019-08-23] MEDS: Escitalopram Oxalate 20 MG Tablet PO (08:01)
[2019-08-23] MEDS: DULoxetine Hcl 30 MG Capsule PO (08:01)
[2019-08-23] MEDS: Pantoprazole Sodium 40 MG Tablet PO (08:02)
[2019-08-23] MEDS: amLODIPine 10 MG Tablet PO (08:02)
[2019-08-23] MEDS: Mirabegron 25 MG TAB.ER.24H PO (08:02)
[2019-08-23] MEDS: APIXABAN 5 MG TABLET PO ×2 (08:02→22:08)
[2019-08-23] MEDS: DULoxetine Hcl 60 MG Capsule PO (08:02)
[2019-08-23] MEDS: Metoprolol(XL)Succ 25 MG Tablet 50 MG PO (08:13)
--- NOTE | 2019-08-23 10:15 | PCM.PROGNOTE ---
Subjective: Patient seen and examined. Reports continued nausea this morning. One episode of diarrhea, stool sent for sample. Reports intermittent shortness of breath and wheezing. Denies cough, fever, chills. - Physical Exam Vitals/I&O's: Vital Signs Temp Pulse Resp BP Pulse Ox 98.2 F 68 18 130/62 H 97 08/23/19 08:00 08/23/19 08:13 08/23/19 08:00 08/23/19 08:00 08/23/19 08:00 Oxygen Flow Rate (L/min) 3 Oxygen Delivery Method Nasal Cannula Weight: 247 lb 12.8 oz Body Mass Index (BMI) 43.9 Finger Stick Blood Glucose 422 Intake and Output for Last 24 Hours 08/21/19 08/22/19 08/23/19 23:59 23:59 23:59 Intake Total 1300 / 1300 1783.33 / 1783.33 Output Total 1000 / 1000 Balance 1300 / 1300 783.33 / 783.33 General: Alert, Oriented x3, Cooperative HEENT: Atraumatic, PERRLA, EOMI, Normocephalic Neck: Supple, No JVD, Negative Carotid Bruits Lungs: Diminished, Wheezes Cardiovascular: Regular rate, No murmurs Abdomen: Bowel Sounds Present, Soft, Non Tender, Non-Distended, Obese Extremities: No clubbing, No cyanosis, No edema, Capillary Refill Less than 3 Seconds Skin: No rashes, No breakdown Musculoskeletal: No Tenderness to Palpation of Joints or Extremities Neurological: Cranial nerves II-XII grossly intact, Neuro grossly intact Psych/Mental Status: Normal Affect, Appropriate Microbiology Past 72 Hours 08/23/19 03:30 Stool C. difficile GDH Antigen & Toxins - Final 08/23/19 03:30 Stool C. difficile DNA Amplification - Final 08/23/19 03:30 Stool Stool Lactoferrin - Final Laboratory Results 08/22/19 13:03: WBC 13.6 H, RBC 5.30, Hgb 15.8 H, Hct 46.8, MCV 88.3, MCH 29.8, MCHC 33.8, RDW Std Deviation 43.9, RDW Coeff of Kaycee 13.8, Plt Count 256, MPV 10.3, Immature Gran % (Auto) 0.700, Neut % (Auto) 82.3 H, Lymph % (Auto) 8.3 L, [place] % (Auto) 7.1, Eos % (Auto) 0.9, Baso % (Auto) 0.7, Absolute Neuts (auto) 11.2 H, Absolute Lymphs (auto) 1.13, Nucleated RBC % 0 08/22/19 13:03: Sodium 134 L, Potassium 3.9, Chloride 102, Carbon Dioxide 24.0, Anion Gap 8, BUN 4 L, Creatinine 0.87, Estim Creat Clear Calc 61.15, Est GFR (MDRD) Af Amer 87, Est GFR (MDRD) Non-Af 72, BUN/Creatinine Ratio 4.6 L, Glucose 290 H, Calcium 10.1, Total Bilirubin 0.60, AST 27, ALT 29, Alkaline Phosphatase 134 H, Troponin I < 0.015, Total Protein 7.7, Albumin 3.5, Globulin 4.2, Albumin/Globulin Ratio 0.8 L, Lipase 42 L 08/22/19 13:03: Hemoglobin A1c 10.8 H 08/22/19 13:20: Lactic Acid 1.8 08/22/19 13:50: Urine Color Straw, Urine Clarity Sl. Cloudy, Urine pH 6.0, Ur Specific [place] 1.010, Urine Protein 30 H, Urine Glucose (UA) 1000 H, Urine Ketones Negative, Urine Occult Blood 10 H, Urine Nitrite Negative, Urine Bilirubin Negative, Urine Urobilinogen Normal, Ur Leukocyte Esterase 25 H, Urine RBC 0-5 SEEN, Urine WBC 0-5 SEEN, Ur Squamous Epith Cells 0-5 SEEN, Urine Bacteria 0 SEEN, Urine Mucus 0 SEEN 08/22/19 21:53: POC Glucose 177 H 08/23/19 06:00: WBC 12.1 H, RBC 4.50, Hgb 13.5, Hct 41.1, MCV 91.3, MCH 30.0, MCHC 32.8, RDW Std Deviation 46.6 H, RDW Coeff of Kaycee 14.2, Plt Count 232, MPV 10.4, Immature Gran % (Auto) 0.500, Neut % (Auto) 71.9 H, Lymph % (Auto) 16.2 L, [place] % (Auto) 9.0, Eos % (Auto) 1.4, Baso % (Auto) 1.0, Absolute Neuts (auto) 8.7 H, Absolute Lymphs (auto) 1.95, Nucleated RBC % 0 08/23/19 06:00: Sodium 138, Potassium 3.5, Chloride 105, Carbon Dioxide 27.0, Anion Gap 6, BUN 4 L, Creatinine 0.85, Estim Creat Clear Calc 62.59, Est GFR (MDRD) Af Amer 90, Est GFR (MDRD) Non-Af 74, BUN/Creatinine Ratio 4.7 L, Glucose 237 H, Calcium 8.8 08/23/19 06:41: POC Glucose 234 H Current Medications Acetaminophen (Tylenol) 650 mg PO Q6H PRN PRN PRN Reason: Pain Score 1-10/Temp > 100.7 F Hydrocodone Bitart/Acetaminophen ([place] 5mg-325mg) 1 tablet PO BID PRN PRN Reason: PAIN 1-/10 Last Admin: 08/23/19 08:00 Dose: 1 tablet Documented by: Albuterol Sulfate (Ventolin Aerosols) 2.5 mg INHALATION Q2H PRN PRN PRN Reason: SHORTNESS OF BREATH Last Admin: 08/23/19 06:56 Dose: 2.5 mg Documented by: Amlodipine Besylate (Norvasc) 10 mg PO DAILY [facility] Last Admin: 08/23/19 08:02 Dose: 10 mg Documented by: Apixaban (Eliquis) 5 mg PO BID [facility] Last Admin: 08/23/19 08:02 Dose: 5 mg Documented by: Atorvastatin Calcium (Lipitor) 80 mg PO QHS [facility] Last Admin: 08/22/19 21:36 Dose: 80 mg Documented by: Buspirone HCl (Buspar) 30 mg PO BID [facility] Last Admin: 08/23/19 08:01 Dose: 30 mg Documented by: Clopidogrel Bisulfate (Plavix) 75 mg PO QHS [facility] Last Admin: 08/22/19 21:36 Dose: 75 mg Documented by: Duloxetine HCl (Cymbalta) 60 mg PO DAILY [facility] Last Admin: 08/23/19 08:02 Dose: 60 mg Documented by: Duloxetine HCl (Cymbalta) 30 mg PO DAILY [facility] Last Admin: 08/23/19 08:01 Dose: 30 mg Documented by: Escitalopram Oxalate (Lexapro) 20 mg PO DAILY [facility] Last Admin: 08/23/19 08:01 Dose: 20 mg Documented by: Sodium Chloride () 250 mls @ 15 mls/hr IV .[id number] PRN PRN Reason: Saline Flush Sodium Chloride () 250 mls @ 15 mls/hr IV .[id number] PRN PRN Reason: Additional IVPB Infusion Sodium Chloride () 1,000 mls @ 100 mls/hr IV .Q10H [facility] Last Admin: 08/23/19 03:24 Dose: 100 mls/hr Documented by: Insulin Glargine (Lantus ([facility])) 12 units SC QHS [facility] Last Admin: 08/22/19 21:54 Dose: 12 u Documented by: Insulin Human Lispro (Humalog Kwikpen ([facility])) 0 unit SC ACHS [facility]; Protocol Last Admin: 08/23/19 06:42 Dose: 4 units Documented by: Lisinopril (Zestril) 20 mg PO QHS [facility] Last Admin: 08/22/19 21:39 Dose: 20 mg Documented by: Metoprolol Succinate (Toprol Xl (Beta Trino)) 50 mg PO DAILY [facility] Last Admin: 08/23/19 08:13 Dose: 50 mg Documented by: Mirabegron (Myrbetriq) 25 mg PO DAILY [facility] Last Admin: 08/23/19 08:02 Dose: 25 mg Documented by: Montelukast Sodium (Singulair) 10 mg PO QHS [facility] Last Admin: 08/22/19 21:36 Dose: 10 mg Documented by: Nicotine (Nicoderm Cq ([facility])) 14 mg TRANSDERM. DAILY [facility] Last Admin: 08/23/19 08:02 Dose: 14 mg Documented by: Ondansetron HCl (Zofran) 4 mg IV Q6H PRN PRN PRN Reason: NAUSEA/VOMITING Pantoprazole Sodium (Protonix) 40 mg PO BID [facility] Last Admin: 08/23/19 08:02 Dose: 40 mg Documented by: Potassium Chloride (K-Dur) 10 meq PO DAILY [facility] Last Admin: 08/23/19 08:01 Dose: 10 meq Documented by: Pregabalin (Lyrica) 75 mg PO TID [facility] Last Admin: 08/23/19 06:42 Dose: 75 mg Documented by: Promethazine HCl (Phenergan) 6.25 mg IV Q6H PRN PRN PRN Reason: NAUSEA/VOMITING Risperidone (Risperdal) 4 mg PO QHS [facility] Last Admin: 08/22/19 21:36 Dose: 4 mg Documented by: Sodium Chloride () 10 - 40 ml IV UD PRN PRN Reason: SALINE FLUSH Last Admin: 08/22/19 17:34 Dose: 10 ml Documented by: Sucralfate (Carafate) 1 gm PO 1HR_ACHS [facility] Last Admin: 08/23/19 06:42 Dose: 1 gm Documented by: Tizanidine HCl (Zanaflex) 6 mg PO TID PRN PRN PRN Reason: SPASMS Last Admin: 08/23/19 08:00 Dose: 6 mg Documented by: Trazodone HCl (Desyrel) 200 mg PO QHS [facility] Last Admin: 08/22/19 21:35 Dose: 200 mg Documented by: Medical Necessity - Tobacco Use Smoking Status: Current every day smoker Tobacco Use: Cigarettes Assessment/Plan All Active Problems (Last Reviewed 08/22/19 @ 16:[address] Mirtha Flores, DO) Diarrhea (Resolved) Hypokalemia (Resolved) 1. Acute C. difficile colitis- IV fluids. PRN antiemetics. Stool for C. difficile positive. Initiated on vancomycin. Begin lactobacillus. Clear liquids. 2. Type 2 diabetes mellitus, poorly controlled-hemoglobin A1c April 2019 11.7%. Repeat hemoglobin A1c 10.8%. Continue home Lantus regimen with sliding scale insulin. 3. Chronic COPD with chronic hypoxic respiratory failure- Patient wears supplemental oxygen with exertion only. Continue supplement oxygen to maintain O2 at or above 90%. Follows with Dr. Willoughby, pulmonary medicine. PRN Albuterol and DuoNeb aerosols. Added budesonide aerosol twice daily given intermittent wheezing. 4. CAD status post PCI x5-continue Eliquis, Plavix, statin, lisinopril, metoprolol. 5. History of PE-on anticoagulation with Eliquis. 6. History of peptic ulcer disease/GERD-continue omeprazole regimen. 7. Chronic pain syndrome-continue home Lyrica, tizanidine regimen. PRN pain regimen. 8. Hypertension-continue amlodipine, Lasix, lisinopril, metoprolol. 9. Hyperlipidemia-continue statin regimen. 10. Iron deficiency anemia-stable, trend CBC. 11. Tobacco dependence-encourage cessation. 12. Schizophrenia/anxiety/depression-continue home BuSpar, Cymbalta, Risperdal and trazodone regimen. 13. RACHEL-continue CPAP nightly. DVT prophylaxis- Ralph This patient was seen by ERROL Lunsford under the supervision of Dr. Barragan.
[2019-08-23] MEDS: Ipratropium/Albuterol Sulfate 3 ML AMPUL.NEB INHALATION ×3 (11:09→19:59)
[2019-08-23] MEDS: Budesonide Respules 0.5 MG/2 ML AMPUL.NEB. INHALATION ×2 (11:09→19:59)
[2019-08-23] MEDS: 0.9% Saline Lock 10 ML Syringe IV ×2 (11:11→22:48)
[2019-08-23] MEDS: proMETHazine 25 MG/ML Syringe 6.25 MG IV ×2 (11:11→22:47)
[2019-08-23 11:55] LABS: Bedside Glucose 197 mg/dL (70-110)
[2019-08-23 16:20] LABS: Bedside Glucose 241 mg/dL (70-110)
[2019-08-23] MEDS: Acetaminophen 325 MG Tablet 650 MG PO (20:32)
[2019-08-23 22:05] LABS: Bedside Glucose 276 mg/dL (70-110)
[2019-08-23] MEDS: traZODone 100 MG Tablet 200 MG PO (22:08)
[2019-08-23] MEDS: Atorvastatin Calcium 80 MG Tablet PO (22:08)
[2019-08-23] MEDS: Lisinopril 20 MG Tablet PO (22:08)
[2019-08-23] MEDS: Clopidogrel Bisulfate 75 MG Tablet PO (22:08)
[2019-08-23] MEDS: RisperiDONE 2 MG Tablet 4 MG PO (22:08)
[2019-08-23] MEDS: Montelukast 10 MG Tablet PO (22:09)
[2019-08-23 22:46] LABS: Bedside Glucose 226 mg/dL (70-110)
[2019-08-24] VITALS (10 sets, daily range): BP systolic 108–118; BP diastolic 58–69; PULSE 54–78; RESP 12–22; TEMP 36.2–36.7; O2SAT 93–98
[2019-08-24] MEDS: Ondansetron 4 MG/2 ML Vial IV ×2 (02:19→20:04)
[2019-08-24] MEDS: 0.9% Normal Saline 1,000 ML 100 ML IV ×2 (02:19→15:08)
[2019-08-24 06:38] LABS: Hematocrit 39.3 % (37-47); Hemoglobin 12.7 g/dL (12.0-15.0); Mean Corp Hgb Conc 32.3 g/dL (32-36); Mean Corpuscular Hgb 29.7 pg (27.0-32.0); Mean Corpuscular Volume 91.8 fL (81-99); Mean Platelet Vol. 10.4 fl (6.2-12.0); Platelet Count 231 K/mm3 (150-450); RBC Distribution Width CV 14.4 % (11.6-14.6); RBC Distribution Width SD 48.1 fl (35.1-43.9); Red Blood Count 4.28 M/mm3 (4.2-5.4); White Blood Count 10.2 K/mm3 (4.4-11.0)
[2019-08-24] MEDS: HYDROcodone Bitartrate/Apap 5/325 Tablet PO ×3 (06:55→23:24)
[2019-08-24 07:01] LABS: Bedside Glucose 134 mg/dL (70-110)
[2019-08-24] MEDS: proMETHazine 25 MG/ML Syringe 6.25 MG IV ×2 (07:04→13:17)
[2019-08-24] MEDS: Sucralfate 1 GM Tablet PO ×4 (07:05→21:04)
[2019-08-24] MEDS: Pregabalin 75 MG Capsule PO ×3 (07:05→21:05)
[2019-08-24] MEDS: tiZANidine HCl 2 MG Tablet 6 MG PO ×3 (07:05→20:18)
[2019-08-24] MEDS: Ipratropium/Albuterol Sulfate 3 ML AMPUL.NEB INHALATION ×3 (07:23→19:36)
[2019-08-24] MEDS: Budesonide Respules 0.5 MG/2 ML AMPUL.NEB. INHALATION ×2 (07:23→19:36)
[2019-08-24 08:05] LABS: Anion Gap 4 (5-15); BUN 2 mg/dL (7-18); BUN/Creat Ratio 2.5 RATIO (10-20); Calcium,Total 8.5 mg/dL (8.5-10.1); Chloride 112 mmol/L (98-107); Creatinine, Serum 0.81 mg/dL (0.55-1.02); EST Glomerular Filtration Rate 78 mL/min (>60); Est Glom Filt Rate - Afr Amer 94 mL/min (>60); Estimated Creatinine Clearance 65.68 ml/min; Glucose 124 mg/dL (74-106); Potassium 3.8 mmol/L (3.5-5.1); Sodium Level 143 mmol/L (136-145)
--- NOTE | 2019-08-24 09:27 | RAD_ITS ---
STUDY: X-RAY CHEST REASON FOR EXAM: Female, 54 years old. DYSPNEA, COUGH TECHNIQUE: Frontal and lateral views COMPARISON: May 02, 2019. FINDINGS: The lungs are expanded. Mild left basilar atelectasis. Normal size heart. Normal mediastinum and alden. Normal visualized pulmonary arteries. Normal visualized aortic arch and descending thoracic aorta. Normal visualized thoracic spine. Normal visualized ribs, clavicles, and shoulders. There is no demonstrated abnormality of the visualized soft tissue structures of the upper abdomen. RAD/Chest PA and Lateral IMPRESSION: Left basilar atelectasis. Electronically Signed: Cj Ziegler DO at 11:03 EDT Tel [phone], Service support ,
[2019-08-24] MEDS: busPIRone 15 MG TABLET 30 MG PO ×2 (09:33→21:04)
[2019-08-24] MEDS: APIXABAN 5 MG TABLET PO ×2 (09:34→21:05)
[2019-08-24] MEDS: DULoxetine Hcl 30 MG Capsule PO (09:34)
[2019-08-24] MEDS: Mirabegron 25 MG TAB.ER.24H PO (09:34)
[2019-08-24] MEDS: Escitalopram Oxalate 20 MG Tablet PO (09:34)
[2019-08-24] MEDS: DULoxetine Hcl 60 MG Capsule PO (09:35)
[2019-08-24] MEDS: 0.9% Saline Lock 10 ML Syringe IV ×3 (09:39→13:17)
[2019-08-24] MEDS: Insulin Lispro 100 UNIT/ML INSULN.PEN SC ×3 (11:52→22:02)
[2019-08-24] MEDS: Acetaminophen 325 MG Tablet 650 MG PO (11:56)
[2019-08-24] MEDS: Metoprolol(XL)Succ 25 MG Tablet 50 MG PO (12:03)
[2019-08-24] MEDS: amLODIPine 10 MG Tablet PO (12:03)
--- NOTE | 2019-08-24 12:40 | PCM.PN.HOSP ---
Subjective: Patient with no acute events overnight per self and per nursing report. She notes she is less nauseous but requiring 2 antiemetics. She is eager for transition from clears now to a regular diet. Patient notes less dyspnea with exertion and less and wheezing which she does chronically have secondary to morbid obesity, hypoventilation syndrome and chronic COPD. Chest x-ray has been obtained with no acute findings. Patient is tolerating oral vancomycin. She had previously been on Keflex for extremity cellulitis likely etiology for current presentation. She had 2 bowel movements a day prior but none since then. Patient denies fevers, chills, emesis, abdominal pain, chest pain or worsened dyspnea. Objective: Physical Examination: General: awake, alert, oriented x 3 and cooperative, seated upright in the DC bedside chair, no acute distress, less fatigued than day prior. Skin: normal color, turgor, no icterus, cyanosis. HEENT: AT/NC, EOMI, PERRLA, improved MMM. Lungs: Diminished breath sounds bilaterally, greater bases, resolved previous expiratory occasional wheeze, no obvious rales or rhonchi, no obvious distress currently. Heart: Regular rate and rhythm; no gallop, rub audible. Abdomen: soft, morbidly obese, mild generalized discomfort although lessened than day prior, but no rebound or guarding with palpation, difficult to discern distention given habitus, more normalized distant bowel sounds. Extremities: no cyanosis, clubbing, bilateral ankle nonpitting edema. Neurological: patient awake, alert, oriented x 3; cognitive function is baseline intact; pupils equally reactive to light and accomodation; cranial nerves II-XII grossly normal, moving all 4 extremities, no focal deficits, strength improving, moderately to severely globally decreased secondary to acute presentation. Psychiatric: affect appears less fatigued appearance, more normal, no acute evidence of depressive or anxiety feelings. Vitals/I&O's: Vital Signs Temp Pulse Resp BP Pulse Ox 98.0 F 60 19 H 110/58 L 96 08/24/19 09:19 08/24/19 12:03 08/24/19 11:10 08/24/19 09:19 08/24/19 09:19 Oxygen Flow Rate (L/min) 3 Oxygen Delivery Method Nasal Cannula Weight: 247 lb 12.8 oz Body Mass Index (BMI) 43.9 Finger Stick Blood Glucose 422 Intake and Output for Last 24 Hours 08/22/19 08/23/19 08/24/19 23:59 23:59 23:59 Intake Total 1300 / 1300 4875.00 / 4875.00 1600 / 1600 Output Total 1000 / 1000 Balance 1300 / 1300 3875.00 / 3875.00 1600 / 1600 Microbiology Past 72 Hours 08/23/19 03:30 Stool Enteric Bacteriology - Final 08/23/19 03:30 Stool C. difficile GDH Antigen & Toxins - Final 08/23/19 03:30 Stool C. difficile DNA Amplification - Final 08/23/19 03:30 Stool Stool Lactoferrin - Final Laboratory Results 08/22/19 17:39: POC Glucose 276 H 08/23/19 16:15: POC Glucose 241 H 08/23/19 21:58: POC Glucose 226 H 08/24/19 06:09: WBC 10.2, RBC 4.28, Hgb 12.7, Hct 39.3, MCV 91.8, MCH 29.7, MCHC 32.3, RDW Std Deviation 48.1 H, RDW Coeff of Kaycee 14.4, Plt Count 231, MPV 10.4 08/24/19 06:09: Sodium 143, Potassium 3.8, Chloride 112 H, Carbon Dioxide 27.0, Anion Gap 4 L, BUN 2 L, Creatinine 0.81, Estim Creat Clear Calc 65.68, Est GFR (MDRD) Af Amer 94, Est GFR (MDRD) Non-Af 78, BUN/Creatinine Ratio 2.5 L, Glucose 124 H, Calcium 8.5 08/24/19 06:52: POC Glucose 134 H Current Medications Acetaminophen (Tylenol) 650 mg PO Q6H PRN PRN PRN Reason: Pain Score 1-10/Temp > 100.7 F Last Admin: 08/24/19 11:56 Dose: 650 mg Documented by: Hydrocodone Bitart/Acetaminophen ([place] 5mg-325mg) 1 tablet PO Q8H PRN PRN PRN Reason: PAIN 1-10/10 Last Admin: 08/24/19 06:55 Dose: 1 tablet Documented by: Albuterol Sulfate (Ventolin Aerosols) 2.5 mg INHALATION Q2H PRN PRN PRN Reason: SHORTNESS OF BREATH Last Admin: 08/23/19 06:56 Dose: 2.5 mg Documented by: Albuterol/Ipratropium (Duoneb) 3 ml INHALATION Q4HWA.RT [facility] Last Admin: 08/24/19 11:09 Dose: 3 ml Documented by: Amlodipine Besylate (Norvasc) 10 mg PO DAILY [facility] Last Admin: 08/24/19 12:03 Dose: 10 mg Documented by: Apixaban (Eliquis) 5 mg PO BID [facility] Last Admin: 08/24/19 09:34 Dose: 5 mg Documented by: Atorvastatin Calcium (Lipitor) 80 mg PO QHS [facility] Last Admin: 08/23/19 22:08 Dose: 80 mg Documented by: Budesonide (Pulmicort Aerosol) 0.5 mg INHALATION BID.RT [facility] Last Admin: 08/24/19 07:23 Dose: 0.5 mg Documented by: Buspirone HCl (Buspar) 30 mg PO BID [facility] Last Admin: 08/24/19 09:33 Dose: 30 mg Documented by: Clopidogrel Bisulfate (Plavix) 75 mg PO QHS [facility] Last Admin: 08/23/19 22:08 Dose: 75 mg Documented by: Duloxetine HCl (Cymbalta) 60 mg PO DAILY [facility] Last Admin: 08/24/19 09:35 Dose: 60 mg Documented by: Duloxetine HCl (Cymbalta) 30 mg PO DAILY [facility] Last Admin: 08/24/19 09:34 Dose: 30 mg Documented by: Escitalopram Oxalate (Lexapro) 20 mg PO DAILY [facility] Last Admin: 08/24/19 09:34 Dose: 20 mg Documented by: Sodium Chloride () 250 mls @ 15 mls/hr IV .[id number] PRN PRN Reason: Saline Flush Sodium Chloride () 250 mls @ 15 mls/hr IV .[id number] PRN PRN Reason: Additional IVPB Infusion Sodium Chloride () 1,000 mls @ 100 mls/hr IV .Q10H [facility] Last Admin: 08/24/19 02:19 Dose: 100 mls/hr Documented by: Insulin Glargine (Lantus ([facility])) 12 units SC QHS [facility] Last Admin: 08/23/19 22:09 Dose: 12 u Documented by: Insulin Human Lispro (Humalog Kwikpen ([facility])) 0 unit SC ACHS [facility]; Protocol Last Admin: 08/24/19 11:52 Dose: 4 units Documented by: Lactobacillus Acidophilus (Acidophilus) 2 tablet PO BID [facility] Last Admin: 08/24/19 09:34 Dose: 2 tablet Documented by: Lisinopril (Zestril) 20 mg PO QHS [facility] Last Admin: 08/23/19 22:08 Dose: 20 mg Documented by: Metoprolol Succinate (Toprol Xl (Beta Trino)) 50 mg PO DAILY [facility] Last Admin: 08/24/19 12:03 Dose: 50 mg Documented by: Mirabegron (Myrbetriq) 25 mg PO DAILY [facility] Last Admin: 08/24/19 09:34 Dose: 25 mg Documented by: Montelukast Sodium (Singulair) 10 mg PO QHS [facility] Last Admin: 08/23/19 22:09 Dose: 10 mg Documented by: Nicotine (Nicoderm Cq (Pbkc)) 14 mg TRANSDERM. DAILY [facility] Last Admin: 08/24/19 09:31 Dose: 14 mg Documented by: Ondansetron HCl (Zofran) 4 mg IV Q6H PRN PRN PRN Reason: NAUSEA/VOMITING Last Admin: 08/24/19 02:19 Dose: 4 mg Documented by: Potassium Chloride (K-Dur) 10 meq PO DAILY [facility] Last Admin: 08/24/19 09:35 Dose: 10 meq Documented by: Pregabalin (Lyrica) 75 mg PO TID [facility] Last Admin: 08/24/19 07:05 Dose: 75 mg Documented by: Promethazine HCl (Phenergan) 6.25 mg IV Q6H PRN PRN PRN Reason: NAUSEA/VOMITING Last Admin: 08/24/19 07:04 Dose: 6.25 mg Documented by: Risperidone (Risperdal) 4 mg PO QHS [facility] Last Admin: 08/23/19 22:08 Dose: 4 mg Documented by: Sodium Chloride () 10 - 40 ml IV UD PRN PRN Reason: SALINE FLUSH Last Admin: 08/24/19 11:56 Dose: 30 ml Documented by: Sucralfate (Carafate) 1 gm PO 1HR_ACHS [facility] Last Admin: 08/24/19 11:56 Dose: 1 gm Documented by: Tizanidine HCl (Zanaflex) 6 mg PO TID PRN PRN PRN Reason: SPASMS Last Admin: 08/24/19 07:05 Dose: 6 mg Documented by: Trazodone HCl (Desyrel) 200 mg PO QHS [facility] Last Admin: 08/23/19 22:08 Dose: 200 mg Documented by: Vancomycin HCl () 125 mg PO Q6 [facility] Stop: 09/02/19 10:20 Last Admin: 08/24/19 12:03 Dose: 125 mg Documented by: STROKE Vital Signs/Narrative: Vital Signs Temp Pulse Resp BP Pulse Ox 08/24/19 12:03 60 08/24/19 11:10 77 19 H 08/24/19 09:19 98.0 F 54 L 16 110/58 L 96 Medical Necessity - Tobacco Use Smoking Status: Current every day smoker Tobacco Use: Cigarettes Assessment/Plan All Active Problems (Last Reviewed 08/22/19 @ 16:[address] Mirtha Flores, DO) Diarrhea (Resolved) Hypokalemia (Resolved) The patient is a 53 y/o F w/ PMHx: Hx PE, Morbid Obesity, RACHEL on CPAP q HS, Fe Deficiency Anemia, Diabetes mellitus type II non-compliant with medications, GERD w/ Hx peptic ulcer, Schizophrenia, HTN, HLD, Ongoing Tobacco use, CAD s/p PCI, Chronic back pain, Chronic COPD w/ Chronic Hypoxic Respiratory Failure who presents to the [facility] ED on 08/22/19 with history of ongoing diarrhea, abdominal cramping, nausea as well as mildly increased wheezing primarily with activity above baseline. 1. Acute C. difficile colitis: Patient admitted with episodes of nausea, emesis abdominal cramping and diarrhea, admitted to medical surgical floor, stool cultures obtained and positive for C. difficile with initiation of oral vancomycin 08/23/2019, initially on clear liquid fluids secondary to significant nausea and emesis but given improvement will transition today to ADA diet with de-escalation if recurrent nausea or emesis, continue pain regimen PRN, discontinued PPI secondary to C. difficile infection, maintain on precautions, continue to trend CBC and BMP with supplementation electrolytes as needed, continue lactobacillus regimen. If patient tolerating oral intake and continues to clinically improve consider discharge 08/25/2019. 2. Chronic COPD with Chronic Hypoxic Respiratory Failure: Patient with baseline exam upon evaluation, especially given #1 would be hesitant to add any steroids, clinically similar to baseline, added scheduled duo nebs as well as patient's budesonide and PRN albuterol, continue chronic oxygen supplementation, encourage head of bed and CPAP nightly. 08/24/2019 chest x-ray unremarkable. 3. Diabetes mellitus type II with hyperglycemia: Patient with noted history of poor compliance, will continue with scheduled long-acting insulin with insulin sliding scale with Accu-Cheks, transition to ADA diet. 4. CAD: Status post PCI x 5, continued on Eliquis, Plavix, statin, metoprolol, lisinopril. 5. Hypertension: Continue home regimen including amlodipine, metoprolol, lisinopril, PRN hydralazine. 6. Hyperlipidemia: Continue home statin regimen. 7. Peptic ulcer disease, GERD: Given acute C. difficile infection d/c PPI, continued Carafate. 8. History of pulmonary embolism: We will continue patient home Eliquis regimen. 9. Tobacco Abuse: Encouraged cessation, inpatient consultation per RT, NR if desired. 10. Chronic pain syndrome: We will continue patient home Lyrica, cymbalta regimen. 11. Anxiety and depression as well as schizophrenia: We will continue patient home BuSpar, Cymbalta, Risperdal and trazodone regimen. Patient also noted to concurrently be on escitalopram, given Cymbalta concurrent usage preference to avoid using these together secondary to risk serotonin syndrome. 12. RACHEL: We will maintain on CPAP nightly. 13. Morbid Obesity: Weight loss and lifestyle changes encouraged. 14. DVT prophylaxis: Ralph Patterson. Inpatient E&M: 79296 Subs Hosp L2
--- NOTE | 2019-08-24 13:39 | NURSING ---
0900 Talked to pt about smoke cessation, states Don't talk to me about it
[2019-08-24 16:51] LABS: Bedside Glucose 181 mg/dL (70-110)
[2019-08-24 18:36] LABS: Bedside Glucose 233 mg/dL (70-110)
[2019-08-24] MEDS: traZODone 100 MG Tablet 200 MG PO (21:04)
[2019-08-24] MEDS: Atorvastatin Calcium 80 MG Tablet PO (21:05)
[2019-08-24] MEDS: Montelukast 10 MG Tablet PO (21:05)
[2019-08-24] MEDS: Lisinopril 20 MG Tablet PO (21:05)
[2019-08-24] MEDS: RisperiDONE 2 MG Tablet 4 MG PO (21:05)
[2019-08-24] MEDS: Clopidogrel Bisulfate 75 MG Tablet PO (21:05)
[2019-08-24 22:10] LABS: Bedside Glucose 209 mg/dL (70-110)
[2019-08-25] VITALS (8 sets, daily range): BP systolic 127–141; BP diastolic 70–79; PULSE 55–88; RESP 12–20; TEMP 36.4–36.8; O2SAT 93–98
[2019-08-25] MEDS: 0.9% Normal Saline 1,000 ML 100 ML IV (00:45)
[2019-08-25] MEDS: Ondansetron 4 MG/2 ML Vial IV (02:41)
[2019-08-25] MEDS: Albuterol 2.5 MG/3 ML VIAL.NEB. INHALATION (02:49)
[2019-08-25 06:00] LABS: Absolute Lymphocyte Count 1.52 X10^3/uL (0.83-4.51); Absolute Neutrophil Count 7.4 X10^3/uL (2.0-7.7); Basophil# 0.08 X10^3/uL; Basophil% 0.8 % (0-1); Eosinophil# 0.19 X10^3/uL; Eosinophils% 1.8 % (0-5); Hematocrit 38.8 % (37-47); Hemoglobin 12.6 g/dL (12.0-15.0); Lymphocyte # 1.52 X10^3/ul (4.0); Lymphocyte % 14.6 % (19-41); Mean Corp Hgb Conc 32.5 g/dL (32-36); Mean Corpuscular Hgb 30.2 pg (27.0-32.0); Mean Platelet Vol. 10.5 fl (6.2-12.0); Monocyte# 1.22 X10^3/uL; Monocyte% 11.7 % (0-10); NRBC Flagged by Analyzer 0 % (0-5); Neutrophil # 7.36 X10^3/uL (2.7-7.7); Neutrophil % 70.7 % (47-70); Platelet Count 245 K/mm3 (150-450); RBC Distribution Width CV 14.2 % (11.6-14.6); RBC Distribution Width SD 48.3 fl (35.1-43.9); Red Blood Count 4.17 M/mm3 (4.2-5.4); White Blood Count 10.4 K/mm3 (4.4-11.0)
[2019-08-25] MEDS: Pregabalin 75 MG Capsule PO (06:35)
[2019-08-25] MEDS: Sucralfate 1 GM Tablet PO (06:35)
[2019-08-25] MEDS: Insulin Lispro 100 UNIT/ML INSULN.PEN SC (06:37)
[2019-08-25] MEDS: tiZANidine HCl 2 MG Tablet 6 MG PO (06:40)
[2019-08-25] MEDS: 0.9% Saline Lock 10 ML Syringe IV (06:52)
[2019-08-25] MEDS: proMETHazine 25 MG/ML Syringe 6.25 MG IV (06:52)
[2019-08-25 07:03] LABS: ALB/GLOB Ratio 0.8 RATIO (0.9-2.4); AST(SGOT) 16 U/L (15-37); Alanine Aminotransfer ALT/SGPT 25 U/L (13-56); Albumin, Serum 2.5 g/dL (3.2-5.0); Alkaline Phosphatase 119 U/L (45-117); Anion Gap 6 (5-15); BUN 6 mg/dL (7-18); BUN/Creat Ratio 8.2 RATIO (10-20); Calcium,Total 8.8 mg/dL (8.5-10.1); Chloride 109 mmol/L (98-107); Creatinine, Serum 0.74 mg/dL (0.55-1.02); EST Glomerular Filtration Rate 88 mL/min (>60); Est Glom Filt Rate - Afr Amer 106 mL/min (>60); Estimated Creatinine Clearance 71.89 ml/min; Glucose 161 mg/dL (74-106); Potassium 3.9 mmol/L (3.5-5.1); Protein, Total 5.5 g/dL (6.4-8.2); Sodium Level 139 mmol/L (136-145)
[2019-08-25] MEDS: Ipratropium/Albuterol Sulfate 3 ML AMPUL.NEB INHALATION (07:10)
[2019-08-25] MEDS: Budesonide Respules 0.5 MG/2 ML AMPUL.NEB. INHALATION (07:10)
[2019-08-25] MEDS: DULoxetine Hcl 30 MG Capsule PO (08:10)
[2019-08-25] MEDS: APIXABAN 5 MG TABLET PO (08:10)
[2019-08-25] MEDS: amLODIPine 10 MG Tablet PO (08:10)
[2019-08-25] MEDS: Escitalopram Oxalate 20 MG Tablet PO (08:10)
[2019-08-25] MEDS: HYDROcodone Bitartrate/Apap 5/325 Tablet PO (08:11)
--- NOTE | 2019-08-25 08:26 | DCINST_ITS ---
- Discharge Diagnoses Current Active Problems: 1. Acute C. difficile colitis 2. Chronic COPD with Chronic Hypoxic Respiratory Failure 3. Diabetes mellitus type II with hyperglycemia 4. CAD: Status post PCI x 5 5. Hypertension 6. Hyperlipidemia 7. Peptic ulcer disease, GERD 8. History of pulmonary embolism 9. Tobacco Abuse 10. Chronic pain syndrome 11. Anxiety and depression as well as schizophrenia 12. RACHEL 13. Morbid Obesity You will use the following diet at home:: Calorie/Carbohydrate Controlled (speci fy 1200, 1400, etc) - Please do not over eat as this was ocurring in the hospital and seemed to lead often to your nausea., Cardiac Your food should be the consistency of: Regular Your liquids should be the consistency of: Regular/Thin Discharge Activity: - - Advise contact precautions until completion of your medication and complete resolution of your diarrhea. May resume sexual activity in: - - See activity precautions. Call your doctor if you observe: Fever of 101 or Higher, Inability to urinate, Inability to have a bowel movement, Shortness of breath, Dizziness, Fainting spells, Chest pain, Uncontrolled pain, - - Recurrent profuse diarrhea, no resolving. Instructions: Clostridium difficile Infection Allergies/Adverse Reactions: Allergies amoxicillin Allergy (Verified 08/22/19 12:45) Itching erythromycin base Allergy (Verified 08/22/19 12:45) Unknown methadone Allergy (Verified 08/22/19 12:45) Itching metolazone Allergy (Verified 08/22/19 12:45) Unknown Penicillins Allergy (Verified 08/22/19 12:45) Hives Sulfa (Sulfonamide Antibiotics) Allergy (Verified 08/22/19 12:45) Hives acetaminophen [From Percocet] Adverse Reaction (Verified 08/22/19 12:45) Itching clarithromycin [From Biaxin] Adverse Reaction (Verified 08/22/19 12:45) Nausea ibuprofen Adverse Reaction (Verified 08/22/19 12:45) 3 BLEEDING ULCERS 3 BLEEDING ULCERS morphine Adverse Reaction (Verified 08/22/19 12:45) HEADACHE HEADACHE oxycodone [From Percocet] Adverse Reaction (Verified 08/22/19 12:45) Itching Medications to take at Discharge Atorvastatin Calcium [Lipitor] 80 mg PO QHS 08/22/15 Clopidogrel Bisulfate [Plavix] 75 mg PO QHS 08/22/15 Metoprolol(XL)Succ [Toprol Xl (Beta Trino)] 50 mg PO DAILY 08/22/15 Nitroglycerin 0.4 mg SL PRN PRN 11/08/16 Duloxetine Hcl [Cymbalta] 60 mg PO DAILY 01/16/17 amlodipine 10 mg tablet 10 mg PO DAILY tab 05/02/17 potassium chloride 10 mEq tablet,extended release(part/cryst) 10 meq PO DAILY #60 tab 06/16/17 Pregabalin [Lyrica] 75 mg PO TID 03/08/18 Risperidone 4 mg PO QHS 03/08/18 Tizanidine HCl 6 mg PO TID PRN PRN 03/08/18 traZODone [Desyrel] 200 mg PO QHS 03/08/18 Furosemide [Lasix] 20 mg PO DAILY 11/20/18 Lisinopril 20 mg PO QHS 11/20/18 Mirabegron [Myrbetriq] 25 mg PO DAILY 11/20/18 Apixaban [Eliquis] 5 mg PO BID 05/02/19 Fluticasone/Salmeterol [Advair Hfa 230-21 Mcg Inhaler] 2 puff INHALATION DAILY 05/02/19 montelukast 10 mg tablet 10 mg PO QHS #30 tab 05/15/19 tiotropium bromide 2.5 mcg/actuation mist for inhalation 2 puff INHALATION DAILY #4 g 06/11/19 albuterol sulfate 90 mcg/actuation aerosol inhaler 2 puff INHALATION Q6H PRN 06/27/19 buspirone 30 mg tablet 30 mg PO BID tab 06/27/19 sucralfate 1 gram tablet 1 g PO QACHS 06/27/19 Duloxetine HCl 30 mg PO DAILY 08/22/19 Escitalopram Oxalate [Lexapro] 20 mg PO DAILY 08/22/19 Hydrocodone/Acetaminophen [Hydrocodon-Acetaminophn 10-325] 1 ea PO BID 08/22/19 Insulin Glargine [Lantus SoloStar Pen] 12 units SUBCUT QHS 08/22/19 Nystatin [Nystop] 1 applic TP 4X/DAY 08/22/19 proMETHazine tablet [Phenergan tablet] 12.5 - 25 mg PO BID PRN PRN 08/22/19 Lactobacillus Acidophilus [Acidophilus] 2 tab PO BID #120 tab 08/25/19 Nicotine [Nicoderm] 14 mg TRANSDERM. DAILY patch 08/25/19 Vancomcyin 125mg/5mL PO Liquid 125 mg PO Q6 9 Days #36 po.syringe 08/25/19 The following prescriptions were given: Lactobacillus Acidophilus [Acidophilus] 2 tab PO BID #120 tab Transmission Status: Pending to [place] [id number] Vancomcyin 125mg/5mL PO Liquid 125 mg PO Q6 9 Days #36 po.syringe Transmission Status: Pending to [facility] [id number] Primary Care Physician: Janel Taylor MD [Primary Care Provider] - Please follow up with your Primary Care Physician in: Please follow-up within 3- 5 days to review admission. Test Results: Test results from this visit will be discussed in further detail at your follow- up appointment, if applicable. Proposed Discharge Date: 08/25/19
--- NOTE | 2019-08-25 08:31 | PCM.DC.SUM ---
Discharge Date and Diagnosis Date of Admission: 08/22/19 Date of Discharge: 08/25/19 - Primary Discharge Diagnosis Acute Problems: 1. Acute C. difficile colitis 2. Chronic COPD with Chronic Hypoxic Respiratory Failure 3. Diabetes mellitus type II with hyperglycemia 4. CAD: Status post PCI x 5 5. Hypertension 6. Hyperlipidemia 7. Peptic ulcer disease, GERD 8. History of pulmonary embolism 9. Tobacco Abuse 10. Chronic pain syndrome 11. Anxiety and depression as well as schizophrenia 12. RACHEL 13. Morbid Obesity - Secondary Discharge Diagnosis Chronic Problems: Chronic Problems (Last Reviewed 08/22/19 @ 16:[address] Mirtha Flores, DO) Stage 2 moderate COPD by GOLD classification (Chronic) Acute and chronic respiratory failure with hypoxia (Chronic) Cataract (Chronic) Iron deficiency (Chronic) Iron deficiency anemia following bariatric surgery (Chronic) History of gastric bypass (Chronic) HTN (hypertension) (Chronic) Peptic ulcer (Chronic) Chronic neutrophilia (Chronic) Osteoarthritis (Chronic) Morbid obesity (Chronic) Neutrophilic leukocytosis (Chronic) Type 2 diabetes mellitus (Chronic) Schizophrenia (Chronic) Hip osteoarthritis (Chronic) with chronic pain-right hip Iron deficiency anemia due to dietary causes (Chronic) exact cause of iron def anemia unknown-felt likely secondary to past history gastric bypass- although chronic blood loss etiology a possibility (has never had colonoscopy)-further workup including hemoccult stool is recommended Morbid obesity with BMI of 45.0-49.9, adult (Chronic) Pulmonary hypertension (Chronic) Chronic narcotic use (Chronic) Depression (Chronic) Gastroesophageal reflux disease (Chronic) Parathyroid abnormality (Chronic) History of PTCA (Chronic) Vitamin D deficiency (Chronic) Hyperlipidemia (Chronic) Thyroid nodule (Chronic) deemed to be benign. Benign essential hypertension (Chronic) CAD (coronary artery disease) (Chronic) RACHEL (obstructive sleep apnea) (Chronic) 17/13 cm of water Spinal stenosis of lumbar region at multiple levels (Chronic) Tobacco abuse (Chronic) Hospital Course and Treatment Operations: None, total hip replacement Procedures: EKG Summary of Care Provided: The patient is a 53 y/o F w/ PMHx: Hx PE, Morbid Obesity, RACHEL on CPAP q HS, Fe Deficiency Anemia, Diabetes mellitus type II non-compliant with medications, GERD w/ Hx peptic ulcer, Schizophrenia, HTN, HLD, Ongoing Tobacco use, CAD s/p PCI, Chronic back pain, Chronic COPD w/ Chronic Hypoxic Respiratory Failure who presented to the [facility] ED on 08/22/19 with history of ongoing diarrhea, abdominal cramping, nausea as well as mildly increased wheezing primarily with activity above baseline. Patient admitted with episodes of nausea, emesis abdominal cramping and diarrhea, admitted to medical surgical floor, stool cultures obtained and positive for C. difficile with initiation of oral vancomycin 08/23/2019, initially on clear liquid fluids secondary to significant nausea and emesis but given improvement transitioned to ADA diet, continued pain regimen PRN, discontinued PPI secondary to C. difficile infection, maintained on precautions, continued to trend CBC and BMP with supplementation electrolytes as needed, continued lactobacillus regimen. Given improved, resolution of diarrhea and discomfort, as well as appropriate oral intake patient felt appropriate for discharge 08/25/2019. Patient discharged home in improved stable condition with recommended follow-up with primary care physician within 3 to 5 days with continued oral vancomycin regimen. DAY OF DISCHARGE PROGRESS NOTE: Subjective: Patient without acute event overnight per self and nursing report. Patient has had resolution of diarrhea and abdominal cramping. She is tolerating ADA diet although day prior she was eating excessively and did have some nausea associated but improved when she actually an appropriate amount. Patient denies current fever, chills, nausea, emesis, abdominal pain, chest pain or dyspnea. Patient agreeable to discharge to home with plan continued oral vancomycin. Patient will be discharged with follow-up with primary care physician within 3-5 days. Objective: T 98.2, heart rate 88, BP 127/70, respiratory rate 16, 94% on 3 L nasal cannula. Physical Examination: General: awake, alert, oriented x 3 and cooperative, seated upright in the bed, no acute distress, improved appearance. Skin: normal color, turgor, no icterus, cyanosis. HEENT: AT/NC, EOMI, PERRLA, MMM. Lungs: Diminished breath sounds bilaterally, greater bases, no obvious rales or rhonchi, no obvious distress currently. Heart: Regular rate and rhythm; no gallop, rub audible. Abdomen: soft, morbidly obese, NTTP, difficult to discern distention given habitus, more normalized distant bowel sounds. Extremities: no cyanosis, clubbing, bilateral ankle nonpitting edema. Neurological: patient awake, alert, oriented x 3; cognitive function is baseline intact; pupils equally reactive to light and accomodation; cranial nerves II-XII grossly normal, moving all 4 extremities, no focal deficits, strength improving, mildly to moderately globally decreased. Psychiatric: affect appears less fatigued, normal, no acute evidence of depressive or anxiety feelings. Assessment and Plan: Please see hospital summary above. - Physical Exam Vitals/I&O's: Vital Signs Temp Pulse Resp BP Pulse Ox 98.2 F 55 L 16 127/70 H 94 08/25/19 08:06 08/25/19 08:06 08/25/19 08:06 08/25/19 08:06 08/25/19 08:06 Oxygen Flow Rate (L/min) 3 Oxygen Delivery Method Nasal Cannula Weight: 247 lb 12.8 oz Body Mass Index (BMI) 43.9 Finger Stick Blood Glucose 422 Intake and Output for Last 24 Hours 08/23/19 08/24/19 08/25/19 23:59 23:59 23:59 Intake Total 4875.00 / 4875.00 3100 / 3100 961.67 / 961.67 Output Total 1000 / 1000 0 / 0 Balance 3875.00 / 3875.00 3100 / 3100 961.67 / 961.67 Microbiology Past 72 Hours 08/23/19 03:30 Stool Enteric Bacteriology - Final 08/23/19 03:30 Stool C. difficile GDH Antigen & Toxins - Final 08/23/19 03:30 Stool C. difficile DNA Amplification - Final 08/23/19 03:30 Stool Stool Lactoferrin - Final Laboratory Results 08/24/19 11:47: POC Glucose 233 H 08/24/19 16:41: POC Glucose 181 H 08/24/19 22:02: POC Glucose 209 H 08/25/19 05:29: WBC 10.4, RBC 4.17 L, Hgb 12.6, Hct 38.8, MCV 93.0, MCH 30.2, MCHC 32.5, RDW Std Deviation 48.3 H, RDW Coeff of Kaycee 14.2, Plt Count 245, MPV 10.5, Immature Gran % (Auto) 0.400, Neut % (Auto) 70.7 H, Lymph % (Auto) 14.6 L, Chester % (Auto) 11.7 H, Eos % (Auto) 1.8, Baso % (Auto) 0.8, Absolute Neuts (auto) 7.4, Absolute Lymphs (auto) 1.52, Nucleated RBC % 0 08/25/19 05:29: Sodium 139, Potassium 3.9, Chloride 109 H, Carbon Dioxide 24.0, Anion Gap 6, BUN 6 L, Creatinine 0.74, Estim Creat Clear Calc 71.89, Est GFR (MDRD) Af Amer 106, Est GFR (MDRD) Non-Af 88, BUN/Creatinine Ratio 8.2 L, Glucose 161 H, Calcium 8.8, Total Bilirubin 0.30, AST 16, ALT 25, Alkaline Phosphatase 119 H, Total Protein 5.5 L, Albumin 2.5 L, Globulin 3.0, Albumin/Globulin Ratio 0.8 L Current Medications Acetaminophen (Tylenol) 650 mg PO Q6H PRN PRN PRN Reason: Pain Score 1-10/Temp > 100.7 F Last Admin: 08/24/19 11:56 Dose: 650 mg Documented by: Hydrocodone Bitart/Acetaminophen (Chapman 5mg-325mg) 1 tablet PO Q8H PRN PRN PRN Reason: PAIN 1-12/13 Last Admin: 08/25/19 08:11 Dose: 1 tablet Documented by: Albuterol Sulfate (Ventolin Aerosols) 2.5 mg INHALATION Q2H PRN PRN PRN Reason: SHORTNESS OF BREATH Last Admin: 08/25/19 02:49 Dose: 2.5 mg Documented by: Albuterol/Ipratropium (Duoneb) 3 ml INHALATION Q4HWA.RT [facility] Last Admin: 08/25/19 07:10 Dose: 3 ml Documented by: Amlodipine Besylate (Norvasc) 10 mg PO DAILY [facility] Last Admin: 08/25/19 08:10 Dose: 10 mg Documented by: Apixaban (Eliquis) 5 mg PO BID [facility] Last Admin: 08/25/19 08:10 Dose: 5 mg Documented by: Atorvastatin Calcium (Lipitor) 80 mg PO QHS [facility] Last Admin: 08/24/19 21:05 Dose: 80 mg Documented by: Budesonide (Pulmicort Aerosol) 0.5 mg INHALATION BID.RT [facility] Last Admin: 08/25/19 07:10 Dose: 0.5 mg Documented by: Buspirone HCl (Buspar) 30 mg PO BID [facility] Last Admin: 06/20/20 21:04 Dose: 30 mg Documented by: Clopidogrel Bisulfate (Plavix) 75 mg PO QHS [facility] Last Admin: 08/24/19 21:05 Dose: 75 mg Documented by: Duloxetine HCl (Cymbalta) 60 mg PO DAILY [facility] Last Admin: 08/24/19 09:35 Dose: 60 mg Documented by: Duloxetine HCl (Cymbalta) 30 mg PO DAILY [facility] Last Admin: 08/25/19 08:10 Dose: 30 mg Documented by: Escitalopram Oxalate (Lexapro) 20 mg PO DAILY [facility] Last Admin: 08/25/19 08:10 Dose: 20 mg Documented by: Sodium Chloride () 250 mls @ 15 mls/hr IV .[id number] PRN PRN Reason: Saline Flush Sodium Chloride () 250 mls @ 15 mls/hr IV .[id number] PRN PRN Reason: Additional IVPB Infusion Sodium Chloride () 1,000 mls @ 100 mls/hr IV .Q10H [facility] Last Admin: 08/25/19 00:45 Dose: 100 mls/hr Documented by: Insulin Glargine (Lantus (Bkc)) 12 units SC QHS [facility] Last Admin: 08/24/19 22:03 Dose: 12 u Documented by: Insulin Human Lispro (Humalog Kwikpen (Bkc)) 0 unit SC [facility]; Protocol Last Admin: 08/25/19 06:37 Dose: 2 units Documented by: Lactobacillus Acidophilus (Acidophilus) 2 tablet PO BID [facility] Last Admin: 08/25/19 08:10 Dose: 2 tablet Documented by: Lisinopril (Zestril) 20 mg PO QHS [facility] Last Admin: 08/24/19 21:05 Dose: 20 mg Documented by: Metoprolol Succinate (Toprol Xl (Beta Trino)) 50 mg PO DAILY [facility] Last Admin: 08/24/19 12:03 Dose: 50 mg Documented by: Mirabegron (Myrbetriq) 25 mg PO DAILY [facility] Last Admin: 08/24/19 09:34 Dose: 25 mg Documented by: Montelukast Sodium (Singulair) 10 mg PO QHS [facility] Last Admin: 08/24/19 21:05 Dose: 10 mg Documented by: Nicotine (Nicoderm Cq (Pbkc)) 14 mg TRANSDERM. DAILY [facility] Last Admin: 08/25/19 08:08 Dose: 14 mg Documented by: Ondansetron HCl (Zofran) 4 mg IV Q6H PRN PRN PRN Reason: NAUSEA/VOMITING Last Admin: 08/25/19 02:41 Dose: 4 mg Documented by: Potassium Chloride (K-Dur) 10 meq PO DAILY [facility] Last Admin: 08/24/19 09:35 Dose: 10 meq Documented by: Pregabalin (Lyrica) 75 mg PO TID [facility] Last Admin: 08/25/19 06:35 Dose: 75 mg Documented by: Promethazine HCl (Phenergan) 6.25 mg IV Q6H PRN PRN PRN Reason: NAUSEA/VOMITING Last Admin: 08/25/19 06:52 Dose: 6.25 mg Documented by: Risperidone (Risperdal) 4 mg PO QHS [facility] Last Admin: 08/24/19 21:05 Dose: 4 mg Documented by: Sodium Chloride () 10 - 40 ml IV UD PRN PRN Reason: SALINE FLUSH Last Admin: 08/25/19 06:52 Dose: 15 ml Documented by: Sucralfate (Carafate) 1 gm PO 1HR_ACHS [facility] Last Admin: 08/25/19 06:35 Dose: 1 gm Documented by: Tizanidine HCl (Zanaflex) 6 mg PO TID PRN PRN PRN Reason: SPASMS Last Admin: 08/25/19 06:40 Dose: 6 mg Documented by: Trazodone HCl (Desyrel) 200 mg PO QHS [facility] Last Admin: 08/24/19 21:04 Dose: 200 mg Documented by: Vancomycin HCl () 125 mg PO Q6 [facility] Stop: 09/02/19 10:20 Last Admin: 08/25/19 06:35 Dose: 125 mg Documented by: Discharge Activity: - - Advise contact precautions until completion of your medication and complete resolution of your diarrhea. May resume sexual activity in: - - See activity precautions. Call your doctor if you observe: Fever of 101 or Higher, Inability to urinate, Inability to have a bowel movement, Shortness of breath, Dizziness, Fainting spells, Chest pain, Uncontrolled pain, - - Recurrent profuse diarrhea, no resolving. Home Medications: Medications to take at Discharge Atorvastatin Calcium [Lipitor] 80 mg PO QHS 08/22/15 Clopidogrel Bisulfate [Plavix] 75 mg PO QHS 08/22/15 Metoprolol(XL)Succ [Toprol Xl (Beta Trino)] 50 mg PO DAILY 08/22/15 Nitroglycerin 0.4 mg SL PRN PRN 11/08/16 Duloxetine Hcl [Cymbalta] 60 mg PO DAILY 01/16/17 amlodipine 10 mg tablet 10 mg PO DAILY tab 05/02/17 potassium chloride 10 mEq tablet,extended release(part/cryst) 10 meq PO DAILY #60 tab 06/16/17 Pregabalin [Lyrica] 75 mg PO TID 03/08/18 Risperidone 4 mg PO QHS 03/08/18 Tizanidine HCl 6 mg PO TID PRN PRN 03/08/18 traZODone [Desyrel] 200 mg PO QHS 03/08/18 Furosemide [Lasix] 20 mg PO DAILY 11/20/18 Lisinopril 20 mg PO QHS 11/20/18 Mirabegron [Myrbetriq] 25 mg PO DAILY 11/20/18 Apixaban [Eliquis] 5 mg PO BID 05/02/19 Fluticasone/Salmeterol [Advair Hfa 230-21 Mcg Inhaler] 2 puff INHALATION DAILY 05/02/19 montelukast 10 mg tablet 10 mg PO QHS #30 tab 05/15/19 tiotropium bromide 2.5 mcg/actuation mist for inhalation 2 puff INHALATION DAILY #4 g 06/11/19 albuterol sulfate 90 mcg/actuation aerosol inhaler 2 puff INHALATION Q6H PRN 06/27/19 buspirone 30 mg tablet 30 mg PO BID tab 06/27/19 sucralfate 1 gram tablet 1 g PO QACHS 06/27/19 Duloxetine HCl 30 mg PO DAILY 08/22/19 Escitalopram Oxalate [Lexapro] 20 mg PO DAILY 08/22/19 Hydrocodone/Acetaminophen [Hydrocodon-Acetaminophn 10-325] 1 ea PO BID 08/22/19 Insulin Glargine [Lantus SoloStar Pen] 12 units SUBCUT QHS 08/22/19 Nystatin [Nystop] 1 applic TP 4X/DAY 08/22/19 proMETHazine tablet [Phenergan tablet] 12.5 - 25 mg PO BID PRN PRN 08/22/19 Lactobacillus Acidophilus [Acidophilus] 2 tab PO BID #120 tab 08/25/19 Nicotine [Nicoderm] 14 mg TRANSDERM. DAILY patch 08/25/19 Vancomcyin 125mg/5mL PO Liquid 125 mg PO Q6 9 Days #36 po.syringe 08/25/19 Following Prescrptions Were Given to Patient: Lactobacillus Acidophilus [Acidophilus] 2 tab PO BID #120 tab Transmission Status: Pending to [facility] [id number] Vancomcyin 125mg/5mL PO Liquid 125 mg PO Q6 9 Days #36 po.syringe Transmission Status: Pending to [facility] [id number] Primary Care Physician: Janel Taylor MD [Primary Care Provider] - Please follow up with your Primary Care Physician in: Please follow-up within 3-5 days to review admission. Patient Instructions: Clostridium difficile Infection Disposition: Home Minutes spent on discharge:: 35 Patient Condition:: Fair Medical Necessity - Tobacco Use Smoking Status: Current every day smoker Tobacco Use: Cigarettes Meaningful Use Info Meaningful Use Diagnoses (Choose all that apply): None applicable Inpatient E&M: 69935 Disch Hosp
[2019-08-25] MEDS: Mirabegron 25 MG TAB.ER.24H PO (10:11)
[2019-08-25] MEDS: busPIRone 15 MG TABLET 30 MG PO (10:11)
[2019-08-25] MEDS: Metoprolol(XL)Succ 25 MG Tablet 50 MG PO (10:16)
--- NOTE | 2019-08-25 10:45 | NURSING ---
pt did not want to wait for the scripts to be sent to [facility] where she said they could be sent since [facility] is closed until tomorrow.She said she would just start the RX tomorrow. She was informed if she waits to start to take the meds tomorrow her c-diff could get worse. The prescriptions were sent to [facility] and she was also given paper copies of them.
[2019-08-25 15:36] LABS: Bedside Glucose 171 mg/dL (70-110)
--- NOTE | 2019-08-26 11:20 | CASEMGMT ---
Addendum entered by Bianca Pandey 08/26/19 11:33: Spoke with pt to update on vanc at this time, voices understanding. Pt states she has had 3 bm's this am and feels tired but states that she is keeping fluids in at this time. Pt states she has nausea med, if needed. Pt advised to call PCP or return to [facility] for any worsening of sx's or inability to keep fluids down, voices understanding. Nereida SANTIAGO CM Original Note: Prior auth needed for oral vancomycin per Dr. Barragan. Call to [facility] and they state the same at this time. Call to [facility] prior auth dept and prior auth obtained for the vanc 125mg capsules at this time. Case #[id number] effective 05/27/2019-09/09/2019. Call back to Carla at [facility] and she states that med goes through at this time. Attempted to call pt but no answer at this time, will attempt to call again later. Nereida SANTIAGO CM
--- NOTE | 2019-08-27 13:16 | CASEMGMT ---
Received call from Sonia Regalado at [facility] ([phone]) stating that patient is active for skilled services with said company (nursing, PT and OT). Sonia requests discharge summary and instructions for continuity of care of this patient. Sonia was able to provide patients date of , and voiced knowledge of reason for admission. Noted in record that patient was set up with [facility] in May of this year by [facility] case management department. Confirmed fax of [phone] and faxed discharge information for continuity of care of this patient. No new order for resumption of care needed due to patient being in observation status during this stay. No other services requested or indicated. -SUSSY Lobo, PAPER LATCHER
== END 2019-08-25 11:15 | disposition home or self-care (01) ==
LOC: ED 12:58 → MS3 15:35
PROVIDERS: Nurse Practitioner Family; Admitting Provider Internal Medicine; Emergency Provider Emergency Medicine; PCP Family Medicine; Visit Provider Family Medicine
DX: A04.72 Enterocolitis due to Clostridium difficile, not specified as recurrent (principal); J96.11 Chronic respiratory failure with hypoxia; J44.9 Chronic obstructive pulmonary disease, unspecified; E11.65 Type 2 diabetes mellitus with hyperglycemia; I25.10 Atherosclerotic heart disease of native coronary artery without angina pectoris; I10 Essential (primary) hypertension; E78.5 Hyperlipidemia, unspecified; K21.9 Gastro-esophageal reflux disease without esophagitis; G89.4 Chronic pain syndrome; G47.33 Obstructive sleep apnea (adult) (pediatric); E66.01 Morbid (severe) obesity due to excess calories; F41.9 Anxiety disorder, unspecified; F32.9 Major depressive disorder, single episode, unspecified; F20.9 Schizophrenia, unspecified; D50.9 Iron deficiency anemia, unspecified; M48.061 Spinal stenosis, lumbar region without neurogenic claudication; M16.10 Unilateral primary osteoarthritis, unspecified hip; F17.210 Nicotine dependence, cigarettes, uncomplicated; I27.20 Pulmonary hypertension, unspecified; Z86.711 Personal history of pulmonary embolism; Z79.899 Other long term (current) drug therapy; Z79.02 Long term (current) use of antithrombotics/antiplatelets; Z79.01 Long term (current) use of anticoagulants; Z79.4 Long term (current) use of insulin; Z68.41 Body mass index [BMI] 40.0-44.9, adult; Z98.84 Bariatric surgery status; E87.1 Hypo-osmolality and hyponatremia
CPT/HCPCS: 36415; 71046; 80048; 80053; 81001; 82962; 83036; 83605; 83630; 83690; 84484; 85025; 85027; 87493; 87506; 93005; 94002; 94003; 94640; 96361; 96374; 96375; 96376; 99218; 99285; 99406; J7030; A4216; G0378; J2405

== ENCOUNTER 2019-10-05 13:21 | Emergency (ER) | payer MEDICARE, SELFPAY ==
[2019-09-19 12:47] VITALS: BMI 43.9
[2019-10-05 13:24] VITALS: BP 161/94; PULSE 81; RESP 18; TEMP 37.1; O2SAT 95; BMI 44.2
--- NOTE | 2019-10-05 13:37 | CT_ITS ---
STUDY: CT BRAIN WITHOUT CONTRAST REASON FOR EXAM: Female, 54 years old. Status post fall. RADIATION DOSAGE (If Supplied By Facility): CTDIvol = ( 44.99 ) mGy, DLP = ( 812.98 ) mGycm TECHNIQUE: Transaxial CT imaging of the brain was performed without administration of intravenous contrast material. Individualized dose optimization techniques were used for this CT. COMPARISON: 05/13/2018 FINDINGS: Normal soft tissue structures. Normal calvarium. There is mild cerebral atrophy with widening of the extra-axial spaces. The ventricles are within normal limits in size and position. There are areas of decreased attenuation within the white matter tracts of the supratentorial brain, consistent with microvascular disease changes. Normal basal ganglia and thalami. Normal brainstem. Normal cerebellum. There is no intracranial hemorrhage. There are no findings of an acute ischemic infarction. Normal visualized paranasal sinuses. CT/Brain/Head without Contrast IMPRESSION: 1. Chronic involutional changes of the brain. 2. No acute intracranial process. Electronically Signed: Alexis German MD at 14:31 EDT Tel , Service support ,
--- NOTE | 2019-10-05 13:37 | RAD_ITS ---
STUDY: X-RAY - LUMBAR SPINE REASON FOR EXAM: Female, 54 years old. PT BECAME DIZZY WHEN GETTING UP, FELL, PAIN TO LOWER BACK, TAILBONE, RIGHT HIP. AMBULATORY AT SCENE PER EMS. DENIES LOC, HEAD INJURY. ON ELIQUIS, PLAVIX TECHNIQUE: 3 view(s) of the lumbar spine were obtained. COMPARISON: April 04 2019 FINDINGS: There is mild thoracolumbar scoliosis. Lateral alignment is preserved. There is a chronic L1 compression fracture involving the anterior superior endplate. There are multifocal stable endplate degenerative changes. Mineralization is diffusely decreased. Paraspinous soft tissues are unremarkable. There is a dense shell peripheral calcification projecting over the left lower abdomen which is a benign dystrophic omental granuloma. There is right hip replacement. Appearance is stable since prior. RAD/Lumbar Spine 2 or 3 Views IMPRESSION: No acute findings. Chronic age-related spondylosis. Electronically Signed: Sergio Link, at 14:31 EDT Tel , Service support ,
--- NOTE | 2019-10-05 13:55 | RAD_ITS ---
STUDY: X-RAY - PELVIS AND RIGHT HIP REASON FOR EXAM: Female, 54 years old. PT BECAME DIZZY WHEN GETTING UP, FELL, PAIN TO LOWER BACK, TAILBONE, RIGHT HIP. AMBULATORY AT SCENE PER EMS. DENIES LOC, HEAD INJURY. ON ELIQUIS, PLAVIX TECHNIQUE: 3 views of the pelvis and hip. COMPARISON: August 17 2018 FINDINGS: The bones of the pelvis are intact and located. There is right total hip arthroplasty with a longstem intramedullary femoral raissa and cerclage wires. Hardware is intact and in expected location with normal bone interface. The knee is located. Soft tissues are unremarkable. Appearance is stable since prior. RAD/HIP, UNI W/ Pelvis 2-3 Views IMPRESSION: No acute osseous injury. Electronically Signed: Sergio Link, at 14:32 EDT Tel , Service support ,
[2019-10-05] MEDS: fentaNYL 100 MCG/2 ML Ampul 50 MCG IM (14:12)
--- NOTE | 2019-10-05 14:20 | ED.VISSUMM ---
- ER Visit Summary Date of Service: 10/05/19 Chief Complaint: Fall History of Present Illness: The patient is a [address] Ramos. She reports that today she stood up from the couch and was lightheaded and fell. She denies any loss of consciousness. She denies blow to the head. However, she is on Eliquis and Plavix. She complains of low back pain Zeta 10 severity, right hip pain is 8 out of 10 severity, and right shoulder pain is 5 out of 10 in severity. Physical Examination: Vitals: Stable. Afebrile. Neck: No vertebral tenderness. Full ROM without difficulty. Cleared by NEXUS criteria. Back: Moderate diffuse tenderness palpation over the entire lumbar spine the paraspinous muscular and lumbar region bilaterally. There is no point tenderness. General: A&O x 3. NAD. Cardiovascular exam: Regular rate and rhythm, no murmur, rub or gallop. Respiratory exam: Chest nontender. No crepitus. Clear to auscultation bilaterally. No wheezes or stridor. Abdominal exam: Soft, nontender, nondistended, normal bowel sounds. No pain in RUQ or LUQ specifically. No peritoneal signs. Extremity: Moderate tense palpation over the right greater trochanter. No pain with internal or external rotation of her hip. No tenderness palpation over the right shoulder. Full range of motion without any difficulty. Test Results: Right hip x-ray shows her hardware to be intact. There is no periprosthetic fracture. LS spine x-ray show degenerative changes. CT of the brain shows no acute disease. No intracranial hemorrhage. Emergency Department Course and Treatment: Patient was treated with fentanyl IM. She is resting more comfortably. Treatment Plan: The patient is in pain management. She is instructed to follow-up with them for further treatment of her pain. Otherwise she is instructed to use Tylenol, ibuprofen, warm soaks, and other symptomatic management. Return to the emergency department for any worsening symptoms. Disposition: To home in improved and stable condition. Impression: 1. Fall. 2. Low back pain. 3. Right hip pain. 4. Coagulopathy on Eliquis. This note was generated with [employer] software. It may contain incorrect words, spelling, and punctuation that were not noted in review of the chart prior to signing ED Disposition - Plan for ED Patient: Disposition: Home or Assisted Living Instructions: ED Fall Uncertain Cause Referrals: Janel Taylor MD [Primary Care Provider] - 3-5 Days if not improving
== END 2019-10-05 15:09 | disposition home or self-care (01) ==
LOC: ED 14:23
PROVIDERS: Emergency Provider Emergency Medicine; PCP Family Medicine
DX: M54.5 Low back pain (principal); M25.551 Pain in right hip; M25.511 Pain in right shoulder; R42 Dizziness and giddiness; W19.XXXA Unspecified fall, initial encounter; Y93.9 Activity, unspecified; Y92.9 Unspecified place or not applicable; Y99.9 Unspecified external cause status; D68.9 Coagulation defect, unspecified; I25.10 Atherosclerotic heart disease of native coronary artery without angina pectoris; J44.9 Chronic obstructive pulmonary disease, unspecified; E11.9 Type 2 diabetes mellitus without complications; I10 Essential (primary) hypertension; Z72.0 Tobacco use; Z79.02 Long term (current) use of antithrombotics/antiplatelets; Z79.01 Long term (current) use of anticoagulants; Z79.899 Other long term (current) drug therapy; Z86.711 Personal history of pulmonary embolism
CPT/HCPCS: 70450; 72100; 73502; 96372; 99284; A4216

== ENCOUNTER 2019-10-11 15:46 | Emergency (ER) | payer MEDICARE, SELFPAY ==
[2019-10-11 15:47] VITALS: BP 136/79; PULSE 68; RESP 18; TEMP 36.8; O2SAT 96; BMI 45.1
--- NOTE | 2019-10-11 16:06 | ED.DCSUM_ITS ---
History of Present Illness Chief Complaint: Headache Informant: Patient Onset: Today Context: Sudden Timing: Continuous, - - Woke with headache and visual symptoms with photophobia Quality: Throbbing Location: Right retro-orbital, temporal, face Current Severity: Mild Maximum Severity: Moderate Worsened by: Photophobia Relieved by: Nothing Associated Symptoms: Nausea, Visual Changes, Blurred Vision. Negative for: Fever, Vomiting, Sore Throat, Sinus Pressure, Numbness, Tingling, Preceding Aura, Photophobia, Visual Loss Injury: - - Is no history of trauma Narrative: Patient is a 54-year-old woman with multiple medical problems who awoke with right-sided head pain that she localized to the right temporal, right maxillary and retro-orbital area associated with scintillating scotoma, wavy blurred vision and photophobia. She denies fever, chills night sweats. She denies history of trauma. She is on Eliquis due to bilateral pulmonary embolus. She does admit to bruising easily. She denies rhinorrhea, congestion postnasal drainage. Denies change in smell or taste. She denies slurred words, difficulty swallowing or change in voice. She denies paresthesia, anesthesia or motor weakness. She states when she stood she felt wobbly. This lasted for seconds. She denies cardiac, respiratory, GI or symptoms. Prior similar symptoms: No Recent Illness/Hospitalization: No - Past Medical History (1) Benign essential hypertension Status: Chronic (2) CAD (coronary artery disease) Status: Chronic (3) Depression Status: Chronic (4) Gastroesophageal reflux disease Status: Chronic (5) HTN (hypertension) Status: Chronic (6) Hip osteoarthritis Status: Chronic Comment: with chronic pain-right hip (7) Iron deficiency Status: Chronic (8) Morbid obesity with BMI of 45.0-49.9, adult Status: Chronic (9) RACHEL (obstructive sleep apnea) Status: Chronic Comment: 17/13 cm of water (10) Parathyroid abnormality Status: Chronic (11) Pulmonary hypertension Status: Chronic (12) Schizophrenia Status: Chronic (13) Tobacco abuse Status: Chronic (14) Type 2 diabetes mellitus Status: Chronic Past Medical History - Allergies and Home Meds Allergies/Adverse Reactions: Allergies amoxicillin Allergy (Verified 10/11/19 15:51) Itching erythromycin base Allergy (Verified 10/11/19 15:51) Unknown methadone Allergy (Verified 10/11/19 15:51) Itching metolazone Allergy (Verified 10/11/19 15:51) Unknown Penicillins Allergy (Verified 10/11/19 15:51) Hives Sulfa (Sulfonamide Antibiotics) Allergy (Verified 10/11/19 15:51) Hives acetaminophen [From Percocet] Adverse Reaction (Verified 10/11/19 15:51) Itching clarithromycin [From Biaxin] Adverse Reaction (Verified 10/11/19 15:51) Nausea ibuprofen Adverse Reaction (Verified 10/11/19 15:51) 3 BLEEDING ULCERS 3 BLEEDING ULCERS morphine Adverse Reaction (Verified 10/11/19 15:51) HEADACHE HEADACHE oxycodone [From Percocet] Adverse Reaction (Verified 10/11/19 15:51) Itching Primary Care Physician: Janel Taylor MD [Primary Care Provider] - Prior records reviewed: Yes Surgical History: appendectomy, cholecystectomy, tonsillectomy, - - Right lower extremity surgery x3 as well as bone grafting, appendectomy, cholecystectomy, gastric bypass, hernia repairs, hip replacement, tonsillectomy. Lives: Alone Smoking Status: Current every day smoker Alcohol: None Drugs: Marijuana - Patient states she has a medical marijuana card - Family History Sibling Family History: Family History (Last Reviewed 09/19/19 @ 12:48 by ERROL Cooper) Mother Heart disease Cancer Father Hypertension Arthritis Hyperlipemia Grandmother Breast cancer Heart disease Grandfather Heart disease Family History: Reports: Hypertension Paternal Family History: Family History (Last Reviewed 09/19/19 @ 12:48 by ERROL Cooper) Mother Heart disease Cancer Father Hypertension Arthritis Hyperlipemia Grandmother Breast cancer Heart disease Grandfather Heart disease Family History: Reports: High Cholesterol, Heart Disease, Hypertension Maternal Family History: Family History (Last Reviewed 09/19/19 @ 12:48 by ERROL Cooper) Mother Heart disease Cancer Father Hypertension Arthritis Hyperlipemia Grandmother Breast cancer Heart disease Grandfather Heart disease Family History: Reports: Cancer, Heart Disease Review of Systems General: Denies: Chills, Fever, Malaise, Subjective, Sweats, Weight loss Eyes: Reports: Blurred vision - right. Denies: Diplopia ENT: Denies: Bilateral ear pain, Rhinorrhea, Sore throat Cardiovascular: Denies: Chest pain, Palpitations Respiratory: Denies: Dyspnea, Cough, Dyspnea on exertion Genitourinary: Denies: Dysuria, Hematuria, Frequency Musculoskeletal: Denies: Myalgias, Arthralgias, Neck pain, Back pain, Swelling, Extremity Pain, -, - Skin: Denies: Rash, Wounds Neurological: Reports: Headache. Denies: Weakness, Parasthesia, Numbness, -, - Endocrine: Denies: Polyuria, Polydipsia Hematologic: Reports: Easy bruising, Easy bleeding Allergy: Denies: Uticaria Physical Exam Vital Signs/Narrative: Vital Signs Temp Pulse Resp BP Pulse Ox 10/11/19 15:47 98.2 F 68 18 136/79 H 96 Inital Vital Signs reviewed: Yes General: Well nourished, Well developed, Obese, Unkempt Head: NC, AT, Temporary Artery Tenderness - Tenderness over the right evangelical ar ea. There is no specific point tenderness over the right temporal artery.. Negative for: Trauma, Tenderness, Vesicular Rash, Sinus Tenderness Eyes: Perrl, EOMI, - - There is no APD. There is no papilledema. Cup-to-disc ratio is normal. Venous pulsations noted bilaterally. There is no photophobia.. Negative for: Pale conjunctiva, Scleral icterus ENT: Moist mucous membranes, No rhinorrhea, TM's clear Neck: Supple, No Lymphadenopathy, No JVD, No Meningismus. Negative for: Nontender, Paraspinal Tenderness Cardiovascular: Regular rate, Regular rhythm, No murmurs, Normal S1, Normal S2 Respiratory: No distress, CTA bilaterally, Chest nontender Abdomen: Soft, Nontender, Nondistended, Normal bowel sounds Rectal: Deferred Back: Nontender, Normal Inspection Extremities: Nontender, No edema Skin: Normal color, No rash, Trauma - Bruises noted to upper and lower extremity. Neuro: Alert, Oriented x3, Cranial nerves II-XII grossly intact, Normal Strength, Normal Sensation, Normal DTR, Normal Gait Psychological: Depressed Diagnostic/Tx/Re-eval Laboratory Results 10/11/19 10/11/19 16:17 16:17 WBC 11.3 H RBC 4.73 Hgb 14.3 Hct 42.4 MCV 89.6 MCH 30.2 MCHC 33.7 RDW Std Deviation 44.8 H RDW Coeff of Kaycee 13.6 Plt Count 269 MPV 10.3 Immature Gran % (Auto) 0.400 Neut % (Auto) 78.8 H Lymph % (Auto) 12.2 L [place] % (Auto) 6.1 Eos % (Auto) 1.6 Baso % (Auto) 0.9 Absolute Neuts (auto) 8.9 H Absolute Lymphs (auto) 1.38 Nucleated RBC % 0 Sodium 134 L Potassium 4.1 Chloride 103 Carbon Dioxide 27.0 Anion Gap 4 L BUN 6 L Creatinine 0.97 Estim Creat Clear Calc 54.85 Est GFR (MDRD) Af Amer 77 Est GFR (MDRD) Non-Af 64 BUN/Creatinine Ratio 6.2 L Glucose 349 H Calcium 9.6 Blood work reveals slight elevation white count which is nonspecific. Blood sugar is elevated 349. Patient does have type 2 diabetes. ESR is pending. Patient did not wait for me to explain risk benefits of leaving prior to test results. Nurse had her sign AMA without my explanation. She told the nurse that her headache had resolved and she wanted to go home. - Medical Decision Making She has history is consistent with ocular migraine. Since she reports pain in the right temporal area ESR was obtained. Because she is diabetic basic metabolic panel was obtained to assess glucose as well as electrolytes and renal function. CBC to assess white count and differential. He states her headache is essentially resolved. She was not administered any medications at this time. ED Disposition - Plan for ED Patient: Disposition: Home or Assisted Living Diagnosis: Ophthalmic migraine Referrals: Janel Taylor MD [Primary Care Provider] -
[2019-10-11 16:34] LABS: Absolute Lymphocyte Count 1.38 X10^3/uL (0.83-4.51); Absolute Neutrophil Count 8.9 X10^3/uL (2.0-7.7); Basophil% 0.9 % (0-1); Eosinophil# 0.18 X10^3/uL; Eosinophils% 1.6 % (0-5); Hematocrit 42.4 % (37-47); Hemoglobin 14.3 g/dL (12.0-15.0); Lymphocyte # 1.38 X10^3/ul (4.0); Lymphocyte % 12.2 % (19-41); Mean Corp Hgb Conc 33.7 g/dL (32-36); Mean Corpuscular Hgb 30.2 pg (27.0-32.0); Mean Corpuscular Volume 89.6 fL (81-99); Mean Platelet Vol. 10.3 fl (6.2-12.0); Monocyte# 0.69 X10^3/uL; Monocyte% 6.1 % (0-10); NRBC Flagged by Analyzer 0 % (0-5); Neutrophil % 78.8 % (47-70); Platelet Count 269 K/mm3 (150-450); RBC Distribution Width CV 13.6 % (11.6-14.6); RBC Distribution Width SD 44.8 fl (35.1-43.9); Red Blood Count 4.73 M/mm3 (4.2-5.4); White Blood Count 11.3 K/mm3 (4.4-11.0)
--- NOTE | 2019-10-11 16:45 | ED.RN ---
pt standing in doorway and wanting to leave. lab and testing results still pending but pt stated, i feel fine now. i just want to go. dr. montes aware but pt will have to wait or sign ama. pt informed and ama form went over with pt choosing to sign. sl dc'd and pt getting dressed to leave.
[2019-10-11 16:49] LABS: Anion Gap 4 (5-15); BUN 6 mg/dL (7-18); BUN/Creat Ratio 6.2 RATIO (10-20); Calcium,Total 9.6 mg/dL (8.5-10.1); Chloride 103 mmol/L (98-107); Creatinine, Serum 0.97 mg/dL (0.55-1.02); EST Glomerular Filtration Rate 64 mL/min (>60); Est Glom Filt Rate - Afr Amer 77 mL/min (>60); Estimated Creatinine Clearance 54.85 ml/min; Glucose 349 mg/dL (74-106); Potassium 4.1 mmol/L (3.5-5.1); Sodium Level 134 mmol/L (136-145)
[2019-10-11 17:19] LABS: Erythrocyte Sedimentation Rate 31 mm/hr (0-30)
== END 2019-10-11 16:50 | disposition home or self-care (01) ==
PROVIDERS: Emergency Provider Emergency Medicine; PCP Family Medicine
DX: G43.109 Migraine with aura, not intractable, without status migrainosus (principal); H53.121 Transient visual loss, right eye; I10 Essential (primary) hypertension; E11.65 Type 2 diabetes mellitus with hyperglycemia; I25.10 Atherosclerotic heart disease of native coronary artery without angina pectoris; M16.11 Unilateral primary osteoarthritis, right hip; G89.29 Other chronic pain; E61.1 Iron deficiency; I27.20 Pulmonary hypertension, unspecified; G47.33 Obstructive sleep apnea (adult) (pediatric); K21.9 Gastro-esophageal reflux disease without esophagitis; F20.9 Schizophrenia, unspecified; F32.9 Major depressive disorder, single episode, unspecified; F17.200 Nicotine dependence, unspecified, uncomplicated; E66.01 Morbid (severe) obesity due to excess calories; Z68.42 Body mass index [BMI] 45.0-49.9, adult; Z79.01 Long term (current) use of anticoagulants; Z79.02 Long term (current) use of antithrombotics/antiplatelets; Z79.4 Long term (current) use of insulin; Z79.899 Other long term (current) drug therapy; Z86.711 Personal history of pulmonary embolism; Z98.84 Bariatric surgery status; Z90.49 Acquired absence of other specified parts of digestive tract; Z96.649 Presence of unspecified artificial hip joint
CPT/HCPCS: 80048; 85025; 85652; 99285; A4216

== ENCOUNTER 2019-10-27 16:56 | Emergency (ER) | payer MEDICARE, SELFPAY ==
[2019-10-27 16:56] VITALS: BMI 42.9
[2019-10-27 16:57] VITALS: BP 138/68; PULSE 91; RESP 16; TEMP 36.2; O2SAT 96; BMI 44.9
[2019-10-27] MEDS: Diphth,Pertuss(Acell),Tet Vac 0.5 ML Vial IM (17:16)
[2019-10-27] MEDS: Gelfoam 12-7 MM Sponge (1) 1 EACH TP (17:16)
--- NOTE | 2019-10-27 17:17 | ED.VIS.GEN ---
History of Present Illness Informant: Patient Onset: Today Context: Sudden Onset Timing: Continuous Quality: Bleeding Location: Left forearm Current Severity: Mild Maximum Severity: Mild Worsened by: Nothing Relieved by: Nothing Associated Symptoms: Denies Narrative: 54-year-old female currently on Eliquis for history of pulmonary embolism presents to the emergency department for bleeding from a left forearm wound. She scraped her forearm on her car door about 5 hours ago. She has been unable to get the bleeding to stop. She has no other symptoms of bleeding. She is not having any pain. She does not feel lightheaded or dizzy. Unknown last tetanus. No weakness no paresthesias. Prior similar symptoms: No Recent Illness/Hospitalization: No <Lopez Bradley - Last Filed: 10/27/19 17:17> <Lupe Razo - Last Filed: 10/27/19 18:12> Chief Complaint: Laceration Past Medical History Past Medical History: - - COPD oxygen dependent, pulmonary embolism, hypertension, hyperlipidemia, peptic ulcer disease Surgical History: appendectomy, cholecystectomy, tonsillectomy, - - Right lower extremity surgery x3 as well as bone grafting, appendectomy, cholecystectomy, gastric bypass, hernia repairs, hip replacement, tonsillectomy. Lives: With Family Smoking Status: Current every day smoker Alcohol: Occasional Drugs: None - Family History Sibling Family History: Family History (Last Reviewed 09/19/19 @ 12:48 by ERROL Cooper) Mother Heart disease Cancer Father Hypertension Arthritis Hyperlipemia Grandmother Breast cancer Heart disease Grandfather Heart disease Family History: Reports: Hypertension Paternal Family History: Family History (Last Reviewed 09/19/19 @ 12:48 by ERROL Cooper) Mother Heart disease Cancer Father Hypertension Arthritis Hyperlipemia Grandmother Breast cancer Heart disease Grandfather Heart disease Family History: Reports: High Cholesterol, Heart Disease, Hypertension Maternal Family History: Family History (Last Reviewed 09/19/19 @ 12:48 by ERROL Cooper) Mother Heart disease Cancer Father Hypertension Arthritis Hyperlipemia Grandmother Breast cancer Heart disease Grandfather Heart disease Family History: Reports: Cancer, Heart Disease <Lopez Bradley - Last Filed: 10/27/19 17:17> - Family History Sibling Family History: Family History (Last Reviewed 09/19/19 @ 12:48 by ERROL Cooper) Mother Heart disease Cancer Father Hypertension Arthritis Hyperlipemia Grandmother Breast cancer Heart disease Grandfather Heart disease Paternal Family History: Family History (Last Reviewed 09/19/19 @ 12:48 by ERROL Cooper) Mother Heart disease Cancer Father Hypertension Arthritis Hyperlipemia Grandmother Breast cancer Heart disease Grandfather Heart disease Maternal Family History: Family History (Last Reviewed 09/19/19 @ 12:48 by ERROL Cooper) Mother Heart disease Cancer Father Hypertension Arthritis Hyperlipemia Grandmother Breast cancer Heart disease Grandfather Heart disease <DungLupe - Last Filed: 10/27/19 18:12> - Allergies and Home Meds Allergies/Adverse Reactions: Allergies amoxicillin Allergy (Verified 10/27/19 17:00) Itching erythromycin base Allergy (Verified 10/27/19 17:00) Unknown methadone Allergy (Verified 10/27/19 17:00) Itching metolazone Allergy (Verified 10/27/19 17:00) Unknown Penicillins Allergy (Verified 10/27/19 17:00) Hives Sulfa (Sulfonamide Antibiotics) Allergy (Verified 10/27/19 17:00) Hives acetaminophen [From Percocet] Adverse Reaction (Verified 10/27/19 17:00) Itching clarithromycin [From Biaxin] Adverse Reaction (Verified 10/27/19 17:00) Nausea ibuprofen Adverse Reaction (Verified 10/27/19 17:00) 3 BLEEDING ULCERS 3 BLEEDING ULCERS morphine Adverse Reaction (Verified 10/27/19 17:00) HEADACHE HEADACHE oxycodone [From Percocet] Adverse Reaction (Verified 10/27/19 17:00) Itching Primary Care Physician: Janel Taylor MD [Primary Care Provider] - Review of Systems All systems negative except as indicated General: Denies: Chills, Fever, Sweats Eyes: Denies: Visual changes - bilaterally, Diplopia ENT: Denies: Rhinorrhea, Sore throat Cardiovascular: Denies: Chest pain, Palpitations Respiratory: Denies: Dyspnea, Cough, Dyspnea on exertion Gastrointestinal: Denies: Abdominal pain, Nausea, Vomiting, Diarrhea, Melena, Hematochezia Genitourinary: Denies: Dysuria, Hematuria, Frequency Musculoskeletal: Denies: Back pain, Extremity Pain Skin: Reports: Abrasions. Denies: Rash, Wounds Neurological: Denies: Headache, Weakness, Numbness <Lopez Bradley - Last Filed: 10/27/19 17:17> Physical Exam Vital Signs/Narrative: Vital Signs Temp Pulse Resp BP Pulse Ox 10/27/19 16:57 97.2 F L 91 16 138/68 H 96 Inital Vital Signs reviewed: Yes General: Well nourished, Well developed, No Acute Distress Head: Normocephalic, Atraumatic Eyes: Perrl, EOMI ENT: Moist mucous membranes, No rhinorrhea Neck: Supple, Nontender Cardiovascular: Regular rate, Regular rhythm, No murmurs Respiratory: No distress, CTA bilaterally, Chest nontender Abdomen: Soft, Nontender, Nondistended, Normal bowel sounds Back: Nontender, Normal Inspection Extremities: Nontender, No edema. Negative for: Tenderness Skin: Normal color, No rash, Trauma - Puncture wound left forearm. Surrounding compartments are soft. He has normal flexion and extension of his elbow and wrist. Radial pulse normal. Neurological: Alert, Oriented x3, Cranial nerves II-XII grossly intact, Normal Strength, Normal Sensation Psychological: Normal affect, Normal Mood <Lopez Bradley - Last Filed: 10/27/19 17:17> Vital Signs/Narrative: Vital Signs Temp Pulse Resp BP Pulse Ox 10/27/19 16:57 97.2 F L 91 16 138/68 H 96 <Lupe Razo - Last Filed: 10/27/19 18:12> Diagnostic/Tx/Re-eval - Medical Decision Making Tetanus was updated. The wound was cleansed. It is a small puncture wound. No laceration is noted. Gelfoam was applied with a dressing. Discussed with patient proper wound care. Discussed with her return precautions. Discharged home after resolution of bleeding <Lopez Bradley - Last Filed: 10/27/19 17:17> - Medical Decision Making I have personally performed a [id number] assessment of the patient and have reviewed the PA note. My polo findings include: 54-year-old female presenting with left forearm wound. Patient states she hit her left forearm on a door frame approximately 5 hours ago. She is on Eliquis and was unable to get the bleeding to stop. Last tetanus is unknown. She has a small puncture wound to her left forearm. This was cleaned and dressed. She was given tetanus immunization. Advised return to ED for worsening complaints. <Lupe Razo - Last Filed: 10/27/19 18:12> ED Disposition <Lopez Bradley - Last Filed: 10/27/19 17:17> <Lupe Razo - Last Filed: 10/27/19 18:12> - Plan for ED Patient: Disposition: Home or Assisted Living Diagnosis: Puncture wound of forearm, left, Type 2 diabetes mellitus, Stage 2 moderate COPD by GOLD classification, RACHEL (obstructive sleep apnea) Instructions: ED Wound Puncture General Referrals: Janel Taylor MD [Primary Care Provider] -
== END 2019-10-27 17:26 | disposition home or self-care (01) ==
LOC: ED 17:25
PROVIDERS: Emergency Provider Physician Assistant Medical; PCP Family Medicine
DX: S51.832A Puncture wound without foreign body of left forearm, initial encounter (principal); Z23 Encounter for immunization; W45.8XXA Other foreign body or object entering through skin, initial encounter; Y93.9 Activity, unspecified; Y92.9 Unspecified place or not applicable; Y99.9 Unspecified external cause status; J44.9 Chronic obstructive pulmonary disease, unspecified; E11.9 Type 2 diabetes mellitus without complications; I10 Essential (primary) hypertension; E78.5 Hyperlipidemia, unspecified; G47.33 Obstructive sleep apnea (adult) (pediatric); F17.200 Nicotine dependence, unspecified, uncomplicated; Z79.01 Long term (current) use of anticoagulants; Z79.02 Long term (current) use of antithrombotics/antiplatelets; Z79.4 Long term (current) use of insulin; Z79.899 Other long term (current) drug therapy; Z99.81 Dependence on supplemental oxygen; Z86.711 Personal history of pulmonary embolism; Z87.11 Personal history of peptic ulcer disease; Z98.84 Bariatric surgery status
CPT/HCPCS: 90471; 90715; 99282

== ENCOUNTER 2019-10-29 16:52 | Emergency (ER) | payer MEDICARE, SELFPAY ==
[2019-10-29 16:53] VITALS: BP 153/71; PULSE 69; RESP 18; TEMP 36.3; O2SAT 96; BMI 44.0
--- NOTE | 2019-10-29 18:12 | ED.VIS.GEN ---
History of Present Illness Chief Complaint: Laceration Informant: Patient Narrative: 54-year-old female presents with concern for bleeding wound. Patient states that she struck her arm on the door jam 3 days ago and was seen here for this issue. Did put some clotting medicine on this wound. States that he continues to see. Patient is also having pain over this area. Describes it as aching and nonradiating. No relieving or worsening factors. Patient is on Eliquis. Spoke with her primary care physician who sent her to the emergency department. Past Medical History - Allergies and Home Meds Allergies/Adverse Reactions: Allergies amoxicillin Allergy (Verified 10/29/19 16:55) Itching erythromycin base Allergy (Verified 10/29/19 16:55) Unknown methadone Allergy (Verified 10/29/19 16:55) Itching metolazone Allergy (Verified 10/29/19 16:55) Unknown Penicillins Allergy (Verified 10/29/19 16:55) Hives Sulfa (Sulfonamide Antibiotics) Allergy (Verified 10/29/19 16:55) Hives acetaminophen [From Percocet] Adverse Reaction (Verified 10/29/19 16:55) Itching clarithromycin [From Biaxin] Adverse Reaction (Verified 10/29/19 16:55) Nausea ibuprofen Adverse Reaction (Verified 10/29/19 16:55) 3 BLEEDING ULCERS 3 BLEEDING ULCERS morphine Adverse Reaction (Verified 10/29/19 16:55) HEADACHE HEADACHE oxycodone [From Percocet] Adverse Reaction (Verified 10/29/19 16:55) Itching Primary Care Physician: Janel Taylor MD [Primary Care Provider] - Past Medical History: - - Hypertension, COPD, atrial fibrillation Surgical History: appendectomy, cholecystectomy, tonsillectomy, - - Right lower extremity surgery x3 as well as bone grafting, appendectomy, cholecystectomy, gastric bypass, hernia repairs, hip replacement, tonsillectomy. Smoking Status: Current every day smoker - Family History Sibling Family History: Family History (Last Reviewed 09/19/19 @ 12:48 by ERROL Cooper) Mother Heart disease Cancer Father Hypertension Arthritis Hyperlipemia Grandmother Breast cancer Heart disease Grandfather Heart disease Family History: Reports: Hypertension Paternal Family History: Family History (Last Reviewed 09/19/19 @ 12:48 by ERROL Cooper) Mother Heart disease Cancer Father Hypertension Arthritis Hyperlipemia Grandmother Breast cancer Heart disease Grandfather Heart disease Family History: Reports: High Cholesterol, Heart Disease, Hypertension Maternal Family History: Family History (Last Reviewed 09/19/19 @ 12:48 by ERROL Cooper) Mother Heart disease Cancer Father Hypertension Arthritis Hyperlipemia Grandmother Breast cancer Heart disease Grandfather Heart disease Family History: Reports: Cancer, Heart Disease Review of Systems General: Denies: Chills, Fever, Sweats Eyes: Denies: Visual changes - bilaterally, Diplopia ENT: Denies: Rhinorrhea, Sore throat Cardiovascular: Denies: Chest pain, Palpitations Respiratory: Denies: Dyspnea, Cough, Dyspnea on exertion Gastrointestinal: Denies: Abdominal pain, Nausea, Vomiting, Diarrhea, Melena, Hematochezia Genitourinary: Denies: Dysuria, Hematuria, Frequency Musculoskeletal: Denies: Back pain, Extremity Pain Skin: Reports: Wounds. Denies: Rash Neurological: Denies: Headache, Weakness, Numbness Physical Exam Vital Signs/Narrative: Vital Signs Temp Pulse Resp BP Pulse Ox 10/29/19 16:53 97.3 F L 69 18 153/71 H 96 Inital Vital Signs reviewed: Yes General: Well nourished, Well developed, No Acute Distress Head: Normocephalic, Atraumatic Eyes: Perrl, EOMI ENT: Moist mucous membranes, No rhinorrhea Neck: Supple, Nontender Cardiovascular: Regular rate, Regular rhythm, No murmurs Respiratory: No distress, CTA bilaterally, Chest nontender Abdomen: Soft, Nontender, Nondistended, Normal bowel sounds Back: Nontender, Normal Inspection Extremities: Nontender, No edema Skin: Normal color, No rash, - - 1 cm dogear skin tear to the left forearm with surrounding ecchymosis. Not actively bleeding. Neurological: Alert, Oriented x3, Cranial nerves II-XII grossly intact, Normal Strength, Normal Sensation Psychological: Normal affect, Normal Mood Diagnostic/Tx/Re-eval Clinical Impression(s) from Imaging Studies Forearm X-Ray 10/29/19 18:28 IMPRESSION: Normal x-ray examination of the radius and ulna. Electronically Signed: J Carlos Rodgers MD at 18:51 EDT , Service support , - Medical Decision Making Appears well nontoxic. X-ray negative. Wound reinforced with Steri-Strips and pressure dressing. Asked to follow-up with primary care. Discharged home in stable condition. Impression: 1. Wound check 2. Left forearm contusion ED Disposition - Plan for ED Patient: Disposition: Home or Assisted Living Instructions: ED AVULSION LACERATION Referrals: Janel Taylor MD [Primary Care Provider] -
--- NOTE | 2019-10-29 18:28 | RAD_ITS ---
STUDY: X-RAY - LEFT RADIUS AND ULNA REASON FOR EXAM: Female, 54 years old. PUNCTURE WOUND A COUPLE DAYS AGO. REMOVED DRESSING AND STILL BLEEDING TODAY. PUNCTURE WOUND IS BETWEEN MID AND DISTAL FOREARM TECHNIQUE: 2 view(s) of the forearm. COMPARISON: None. FINDINGS: There is no demonstrated soft tissue swelling. Normal visualized radius. Normal visualized ulna. There is no demonstrated acute fracture. RAD/Forearm 2 Views IMPRESSION: Normal x-ray examination of the radius and ulna. Electronically Signed: J Carlos Rodgers MD at 18:51 EDT , Service support ,
[2019-10-29 19:12] VITALS: RESP 18
== END 2019-10-29 19:13 | disposition home or self-care (01) ==
PROVIDERS: Emergency Provider Emergency Medicine; PCP Family Medicine
DX: S51.812A Laceration without foreign body of left forearm, initial encounter (principal); W22.01XA Walked into wall, initial encounter; Y93.9 Activity, unspecified; Y92.9 Unspecified place or not applicable; F17.200 Nicotine dependence, unspecified, uncomplicated; J44.9 Chronic obstructive pulmonary disease, unspecified; I48.91 Unspecified atrial fibrillation; I10 Essential (primary) hypertension; Z79.01 Long term (current) use of anticoagulants; Z79.899 Other long term (current) drug therapy; Z79.02 Long term (current) use of antithrombotics/antiplatelets
CPT/HCPCS: 73090; 99282

== ENCOUNTER 2019-12-12 15:01 | Emergency (ER) | payer MEDICARE, SELFPAY ==
[2019-12-12 15:03] VITALS: BP 158/75; PULSE 83; RESP 22; TEMP 37.1; O2SAT 97; O2SAT 99; BMI 44.4
--- NOTE | 2019-12-12 15:16 | EKG12_ITS ---
Test Reason : SOB Blood Pressure : / mmHG Vent. Rate : 077 BPM Atrial Rate : 077 BPM P-R Int : 144 ms QRS Dur : 088 ms QT Int : 380 ms P-R-T Axes : 010 007 013 degrees QTc Int : 430 ms Normal sinus rhythm Cannot rule out Anterior infarct (cited on or before 02-MAY-2019) Abnormal ECG When compared with ECG of 22-AUG-2019 13:32, Questionable change in initial forces of Anteroseptal leads Confirmed by JAZZMINE FRANCISCO MD ([id number]), copy editor MARTHA SCOTT ([id number]) on 01/06/2020 1:53:23 PM Referred By: ZEUS Confirmed By:JAZZMINE FRANCISCO MD
--- NOTE | 2019-12-12 15:17 | ED.DCSUM_ITS ---
History of Present Illness Chief Complaint: Shortness of Breath Informant: Patient Narrative: 54-year-old female with past medical history of hypertension, diabetes, COPD chronically on 3 L presents with concern for cough and shortness of breath. States it is been worsening over the past 3 weeks. Worse on exertion. Admits to chest pain which is aching and nonradiating. Denies any nausea, vomiting, diaphoresis. Patient continues to smoke. Past Medical History - Allergies and Home Meds Allergies/Adverse Reactions: Allergies amoxicillin Allergy (Verified 12/12/19 15:02) Itching erythromycin base Allergy (Verified 12/12/19 15:02) Unknown methadone Allergy (Verified 12/12/19 15:02) Itching metolazone Allergy (Verified 12/12/19 15:02) Unknown Penicillins Allergy (Verified 12/12/19 15:02) Hives Sulfa (Sulfonamide Antibiotics) Allergy (Verified 12/12/19 15:02) Hives acetaminophen [From Percocet] Adverse Reaction (Verified 12/12/19 15:02) Itching clarithromycin [From Biaxin] Adverse Reaction (Verified 12/12/19 15:02) Nausea ibuprofen Adverse Reaction (Verified 12/12/19 15:02) 3 BLEEDING ULCERS 3 BLEEDING ULCERS morphine Adverse Reaction (Verified 12/12/19 15:02) HEADACHE HEADACHE oxycodone [From Percocet] Adverse Reaction (Verified 12/12/19 15:02) Itching Primary Care Physician: Janel Taylor MD [Primary Care Provider] - Prior records reviewed: Yes Past Medical History: - - HTN, DM, COPD Surgical History: appendectomy, cholecystectomy, tonsillectomy, - - Right lower extremity surgery x3 as well as bone grafting, appendectomy, cholecystectomy, gastric bypass, hernia repairs, hip replacement, tonsillectomy. Lives: With Family Smoking Status: Current every day smoker Alcohol: None Drugs: None - Family History Sibling Family History: Family History (Last Reviewed 09/19/19 @ 12:48 by Rosanna Hampton NP, PIPE BOWL PAINT TRIMMER-C) Mother Heart disease Cancer Father Hypertension Arthritis Hyperlipemia Grandmother Breast cancer Heart disease Grandfather Heart disease Family History: Reports: Hypertension Paternal Family History: Family History (Last Reviewed 09/19/19 @ 12:48 by Rosanna Hampton NP, PIPE B[employer]L PAINT TRIMMER-C) Mother Heart disease Cancer Father Hypertension Arthritis Hyperlipemia Grandmother Breast cancer Heart disease Grandfather Heart disease Family History: Reports: High Cholesterol, Heart Disease, Hypertension Maternal Family History: Family History (Last Reviewed 09/19/19 @ 12:48 by Rosanna Hampton PIPE BOWL PAINT TRIMMER, PIPE BOWL PAINT TRIMMER-C) Mother Heart disease Cancer Father Hypertension Arthritis Hyperlipemia Grandmother Breast cancer Heart disease Grandfather Heart disease Family History: Reports: Cancer, Heart Disease Review of Systems General: Denies: Chills, Fever, Sweats Eyes: Denies: Visual changes - bilaterally, Diplopia ENT: Denies: Rhinorrhea, Sore throat Cardiovascular: Reports: Chest pain. Denies: Palpitations Respiratory: Reports: Dyspnea, Cough. Denies: Dyspnea on exertion Gastrointestinal: Denies: Abdominal pain, Nausea, Vomiting, Diarrhea, Melena, Hematochezia Genitourinary: Denies: Dysuria, Hematuria, Frequency Musculoskeletal: Denies: Back pain, Extremity Pain Skin: Denies: Rash, Wounds Neurological: Denies: Headache, Weakness, Numbness Physical Exam Vital Signs/Narrative: Vital Signs Temp Pulse Resp BP Pulse Ox 12/12/19 15:03 98.7 F 83 22 H 158/75 H 99 Inital Vital Signs reviewed: Yes General: Well nourished, Well developed, No Acute Distress Head: Normocephalic, Atraumatic Eyes: Perrl, EOMI ENT: Moist mucous membranes, No rhinorrhea Neck: Supple, Nontender Cardiovascular: Regular rate, Regular rhythm, No murmurs Respiratory: No distress, CTA bilaterally, Chest nontender Abdomen: Soft, Nontender, Nondistended, Normal bowel sounds Back: Nontender, Normal Inspection Extremities: Nontender, No edema Skin: Normal color, No rash Neurological: Alert, Oriented x3, Cranial nerves II-XII grossly intact, Normal Strength, Normal Sensation Psychological: Normal affect, Normal Mood Diagnostic/Tx/Re-eval Chest X-Ray - ED: 1 View, No Acute Disease - Rhythm Strip Rhythm Strip: Sinus Rhythm Rate: 77 Ectopy: None - EKG Initial EKG Interpretation: Sinus Rhythm - Sinus rhythm at 77 bpm. DE interval of 144 ms. QTC of 430 ms. No evidence of ST elevation or depression at this time. - Medical Decision Making Appears well and nontoxic. On baseline 3 L. No hypoxemia. Chest x-ray negative. Lab work fairly within normal limits. No elevation in troponin. Patient was given aerosol breathing treatments as well as IV Solu-Medrol. Will be tested for coronavirus on an outpatient basis. 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 Asked to return for worsening shortness of breath. Patient agreeable and discharged home in stable condition. Impression: 1. COPD exacerbation 2. Tobacco abuse ED Disposition - Plan for ED Patient: Disposition: Home or Assisted Living Instructions: ED COPD Flare Prescriptions: Prednisone [Deltasone] 40 mg PO DAILY #10 tab Prescription Printed Referrals: Janel Talyor MD [Primary Care Provider] -
[2019-12-12 15:32] LABS: Absolute Neutrophil Count 8.8 X10^3/uL (2.0-7.7); Basophil# 0.12 X10^3/uL; Eosinophil# 0.15 X10^3/uL; Eosinophils% 1.3 % (0-5); Hematocrit 44.2 % (37-47); Hemoglobin 15.1 g/dL (12.0-15.0); Mean Corp Hgb Conc 34.2 g/dL (32-36); Mean Corpuscular Hgb 31.1 pg (27.0-32.0); Mean Corpuscular Volume 91.1 fL (81-99); Monocyte# 1.01 X10^3/uL; Monocyte% 8.4 % (0-10); NRBC Flagged by Analyzer 0 % (0-5); Neutrophil # 8.84 X10^3/uL (2.7-7.7); Neutrophil % 73.9 % (47-70); Platelet Count 298 K/mm3 (150-450); RBC Distribution Width CV 13.9 % (11.6-14.6); RBC Distribution Width SD 46.2 fl (35.1-43.9); Red Blood Count 4.85 M/mm3 (4.2-5.4)
[2019-12-12 15:38] VITALS: BP 158/75; PULSE 83; RESP 22; TEMP 37.1; O2SAT 99
--- NOTE | 2019-12-12 15:44 | RAD_ITS ---
STUDY: X-RAY CHEST REASON FOR EXAM: Female, 54 years old. SOB X 3 WEEKS, COUGH TECHNIQUE: Single AP portable view of the chest. COMPARISON: None. FINDINGS: Subsegmental atelectases are noted in the left lung base. There is no demonstrated pleural abnormality. Normal size heart. Normal mediastinum and alden. Normal visualized pulmonary arteries. Normal visualized aortic arch and descending thoracic aorta. Normal visualized thoracic spine. There is degenerative osteoarthritis of the bilateral shoulders. There is no demonstrated abnormality of the visualized soft tissue structures of the upper abdomen. RAD/Chest 1 View (Portable) IMPRESSION: Degenerative changes, as described above. No demonstrated acute cardiopulmonary process. Electronically Signed: Ana Kasper, at 16:28 EDT Tel , Service support ,
[2019-12-12] MEDS: MethylPREDNISolone 125 MG/2 ML Vial IV (15:46)
[2019-12-12 15:48] LABS: Anion Gap 6 (5-15); BUN 12 mg/dL (7-18); BUN/Creat Ratio 11.4 RATIO (10-20); Calcium,Total 9.8 mg/dL (8.5-10.1); Chloride 98 mmol/L (98-107); Creatinine, Serum 1.05 mg/dL (0.55-1.02); EST Glomerular Filtration Rate 58 mL/min (>60); Est Glom Filt Rate - Afr Amer 70 mL/min (>60); Estimated Creatinine Clearance 50.67 ml/min; Glucose 347 mg/dL (74-106); Potassium 4.1 mmol/L (3.5-5.1); Sodium Level 130 mmol/L (136-145)
[2019-12-12 16:01] VITALS: RESP 15; O2SAT 97
[2019-12-12] MEDS: Ipratropium/Albuterol Sulfate 3 ML AMPUL.NEB INHALATION (16:01)
[2019-12-12] MEDS: Albuterol 2.5 MG/3 ML VIAL.NEB. INHALATION (16:01)
[2019-12-12 16:05] LABS: BNP,B-Type NATRIURETIC PEPTIDE 120.8 pg/mL (0-100)
[2019-12-12 16:16] VITALS: BP 129/105; PULSE 91; RESP 16; TEMP 36.6; O2SAT 98
[2019-12-12 16:48] VITALS: BP 100/82; PULSE 69; RESP 15; O2SAT 98
== END 2019-12-12 16:48 | disposition home or self-care (01) ==
PROVIDERS: Emergency Provider Emergency Medicine; PCP Family Medicine
DX: J44.1 Chronic obstructive pulmonary disease with (acute) exacerbation (principal); E11.9 Type 2 diabetes mellitus without complications; I10 Essential (primary) hypertension; F17.200 Nicotine dependence, unspecified, uncomplicated; Z99.81 Dependence on supplemental oxygen; Z79.01 Long term (current) use of anticoagulants; Z79.4 Long term (current) use of insulin; Z79.52 Long term (current) use of systemic steroids; Z79.899 Other long term (current) drug therapy; Z98.84 Bariatric surgery status
CPT/HCPCS: 71045; 80048; 83880; 84484; 85025; 93005; 96374; 99251; 99285; A4216; G0463

== ENCOUNTER 2019-12-16 16:38 | Inpatient (IN) | payer MEDICARE, MEDICAID, SELFPAY ==
[2019-12-16] VITALS (17 sets, daily range): BP systolic 98–149; BP diastolic 56–91; PULSE 56–72; RESP 12–20; TEMP 36.8–37.1; O2SAT 96–99; BMI 44.4; BMI 43.7
--- NOTE | 2019-12-16 17:34 | EKG12_ITS ---
Test Reason : LOWER EXTREMETY Blood Pressure : / mmHG Vent. Rate : 056 BPM Atrial Rate : 056 BPM P-R Int : 152 ms QRS Dur : 088 ms QT Int : 438 ms P-R-T Axes : 021 017 003 degrees QTc Int : 422 ms Sinus bradycardia Cannot rule out Anterior infarct , age undetermined Abnormal ECG Confirmed by MIGUEL TAFOYA, MOY ([id number]), technical writer and editor MARTHA SCOTT ([id number]) on 12/23/2019 8:41:13 A M Referred By: SOY/BENTON Confirmed By:PALOMA RIVERA MD
--- NOTE | 2019-12-16 17:35 | RAD_ITS ---
STUDY: X-RAY - LEFT ANKLE REASON FOR EXAM: Female, 54 years old. fall, deformity TECHNIQUE: 2 view(s) of the ankle. COMPARISON: None. FINDINGS: There is an acute comminuted transverse intra-articular fracture of the distal tibia with separation of fracture fragments and widening of the anterior tibiotalar joint. There is also an acute obliquely oriented intra-articular fracture of the distal fibular shaft with mild separation of fracture fragments.. . Normal visualized talus and calcaneus. The visualized subtalar, talonavicular, calcaneocuboid and tarsal articulations are normal. Bimalleolar soft tissue swelling is noted RAD/Ankle 2 Views IMPRESSION: Acute displaced fractures of the distal tibia and fibula Electronically Signed: Ge Giles MD at 18:42 EDT , Service support ,
--- NOTE | 2019-12-16 17:35 | ED.VIS.GEN ---
History of Present Illness Chief Complaint: Lower Extremity Injury Informant: Patient Onset: Today Narrative: Patient presents after a fall at home. She states that she remembers walking to the kitchen where she was off balance. She does report a history of balance problems. She states that she remembers opening the freezer door and the next thing she knows she was laying on the ground being woken by her caregiver. It is unsure if she fell and hit her head and got knocked out or if she had a syncopal event. She has a left ankle deformity. Patient is currently on Eliquis. - Past Medical History (1) CAD (coronary artery disease) Status: Chronic (2) Depression Status: Chronic (3) Gastroesophageal reflux disease Status: Chronic (4) HTN (hypertension) Status: Chronic (5) Hyperlipidemia Status: Chronic (6) RACHEL (obstructive sleep apnea) Status: Chronic Comment: 17/13 cm of water (7) Osteoarthritis Status: Chronic (8) Schizophrenia Status: Chronic (9) Stage 2 moderate COPD by GOLD classification Status: Chronic (10) Type 2 diabetes mellitus Status: Chronic (11) Myocardial infarction Status: Chronic (12) H/O heart artery stent Status: Chronic (13) Pulmonary emboli Status: Chronic Past Medical History - Allergies and Home Meds Allergies/Adverse Reactions: Allergies amoxicillin Allergy (Verified 12/12/19 15:02) Itching erythromycin base Allergy (Verified 12/12/19 15:02) Unknown methadone Allergy (Verified 12/12/19 15:02) Itching metolazone Allergy (Verified 12/12/19 15:02) Unknown Penicillins Allergy (Verified 12/12/19 15:02) Hives Sulfa (Sulfonamide Antibiotics) Allergy (Verified 12/12/19 15:02) Hives acetaminophen [From Percocet] Adverse Reaction (Verified 12/12/19 15:02) Itching clarithromycin [From Biaxin] Adverse Reaction (Verified 12/12/19 15:02) Nausea ibuprofen Adverse Reaction (Verified 12/12/19 15:02) 3 BLEEDING ULCERS 3 BLEEDING ULCERS morphine Adverse Reaction (Verified 12/12/19 15:02) HEADACHE HEADACHE oxycodone [From Percocet] Adverse Reaction (Verified 12/12/19 15:02) Itching Primary Care Physician: Janel Taylor MD [Primary Care Provider] - Prior records reviewed: Yes Surgical History: appendectomy, cholecystectomy, tonsillectomy, - - Right lower extremity surgery x3 as well as bone grafting, appendectomy, cholecystectomy, gastric bypass, hernia repairs, hip replacement, tonsillectomy. Smoking Status: Current every day smoker Drugs: Marijuana - Family History Sibling Family History: Family History (Last Reviewed 09/19/19 @ 12:48 by Rosanna Hampton NP, AIR COMPRESSOR MECHANIC-C) Mother Heart disease Cancer Father Hypertension Arthritis Hyperlipemia Grandmother Breast cancer Heart disease Grandfather Heart disease Family History: Reports: Hypertension Paternal Family History: Family History (Last Reviewed 09/19/19 @ 12:48 by Rosanna Hampton NP, AIR COMPRESSOR MECHANIC-C) Mother Heart disease Cancer Father Hypertension Arthritis Hyperlipemia Grandmother Breast cancer Heart disease Grandfather Heart disease Family History: Reports: High Cholesterol, Heart Disease, Hypertension Maternal Family History: Family History (Last Reviewed 09/19/19 @ 12:48 by Rosanna Hampton NP, AIR COMPRESSOR MECHANIC-C) Mother Heart disease Cancer Father Hypertension Arthritis Hyperlipemia Grandmother Breast cancer Heart disease Grandfather Heart disease Family History: Reports: Cancer, Heart Disease Review of Systems General: Denies: Chills, Fever Eyes: Denies: Visual changes - bilaterally ENT: Denies: Bilateral ear pain Cardiovascular: Denies: Chest pain Respiratory: Reports: Dyspnea, - - Wheezing. Denies: Cough Gastrointestinal: Denies: Abdominal pain, Nausea, Vomiting Genitourinary: Denies: Dysuria Musculoskeletal: Reports: Extremity Pain Skin: Denies: Rash Neurological: Denies: Headache Allergy: Denies: Uticaria Physical Exam Vital Signs/Narrative: Vital Signs Temp Pulse Resp BP Pulse Ox 12/16/19 16:44 98/60 12/16/19 16:40 98.5 F 61 14 96 Inital Vital Signs reviewed: Yes General: Well nourished, Well developed Head: Normocephalic ENT: Moist mucous membranes Neck: Supple Cardiovascular: Regular rate, Regular rhythm Respiratory: No distress, Wheezing Abdomen: Soft, Nontender Extremities: - - Tenderness with deformity of the left ankle. Distal pulses are palpable and she can wiggle toes. Sensation is intact. No tenderness at the left knee or hip. No tenderness to the right lower extremity. Neurological: Alert, Oriented x3 Psychological: Normal affect Diagnostic/Tx/Re-eval Impressions Brain CT 12/16/19 17:36 IMPRESSION: Moderate periventricular white matter ischemic changes. No evidence for acute bleed. If concern for acute infarct MRI recommended. Electronically Signed: Ge Giles MD at 18:29 EDT , Service support , Chest X-Ray 12/16/19 17:55 IMPRESSION: Elevated right hemidiaphragm and mild right middle lobe atelectasis. Interstitial thickening in the right upper lobe. Electronically Signed: Ge Giles MD at 18:34 EDT , Service support , 12/16/19 17:35 Ankle 2 Views [RAD] Stat IMPRESSION: Acute displaced fractures of the distal tibia and fibula 12/16/19 19:23 XRAY Ankle [Ankle 2 Views] [RAD] Stat Post reduction x-rays per my review reveal good realignment of the fracture. 12/16/19 19:43 CT Lower [Extremity Lower without Contra] [CT] Stat Laboratory Results 12/16/19 12/16/19 17:09 17:09 WBC 17.2 H RBC 4.73 Hgb 14.5 Hct 43.1 MCV 91.1 MCH 30.7 MCHC 33.6 RDW Std Deviation 46.5 H RDW Coeff of Kaycee 13.9 Plt Count 252 MPV 10.4 Immature Gran % (Auto) 0.800 Neut % (Auto) 88.2 H Lymph % (Auto) 6.4 L [place]imble % (Auto) 3.8 Eos % (Auto) 0.2 Baso % (Auto) 0.6 Absolute Neuts (auto) 15.1 H Absolute Lymphs (auto) 1.10 Nucleated RBC % 0 Sodium 130 L Potassium 4.4 Chloride 95 L Carbon Dioxide 27.0 Anion Gap 8 BUN 13 Creatinine 1.35 H Estim Creat Clear Calc 39.41 Est GFR (MDRD) Af Amer 53 L Est GFR (MDRD) Non-Af 43 L BUN/Creatinine Ratio 9.6 L Glucose 343 H Calcium 9.3 Troponin I < 0.015 - EKG Initial EKG Interpretation: Sinus Rhythm - Sinus 86 with no acute ischemia. - Medical Decision Making Patient was given Dilaudid for pain control along with aerosol treatments for her wheezing. Test results are discussed with her. She was consented for procedural sedation and closed reduction of her left ankle. A total of 60 mg of propofol was given. Left ankle was reduced and placed in a posterior plus sugar tong splint. Following splint application she has good cap refill distally and can wiggle toes. Because the patient had a syncopal episode she will be admitted to the hospital for further evaluation. I did speak with podiatry who will evaluate her as well. CT of the left ankle will be obtained to help with surgical planning. I will speak with the hospitalist. ED Disposition - Plan for ED Patient: Disposition: Acute Care Hospital [facility] Diagnosis: Syncope, Closed left ankle fracture Referrals: Janel Taylor MD [Primary Care Provider] -
--- NOTE | 2019-12-16 17:36 | CT_ITS ---
STUDY: CT BRAIN WITHOUT CONTRAST REASON FOR EXAM: Female, 54 years old. FALL, DIZZINESS RADIATION DOSAGE (If Supplied By Facility): CTDIvol = ( 44.99 ) mGy, DLP = ( 812.98 ) mGycm TECHNIQUE: Transaxial CT imaging of the brain was performed without administration of intravenous contrast material. Individualized dose optimization techniques were used for this CT. COMPARISON: 10/05/2019 FINDINGS: Normal soft tissue structures. Normal calvarium. Calcification of cavernous carotids. Normal size ventricles and extra-axial spaces for the patient''s age. Moderate periventricular white matter ischemic changes.. Normal basal ganglia and thalami. Normal brainstem. Normal cerebellum. There is no intracranial hemorrhage. There are no findings of an acute ischemic infarction. Normal visualized paranasal sinuses. No significant change since prior exam CT/Brain/Head without Contrast IMPRESSION: Moderate periventricular white matter ischemic changes. No evidence for acute bleed. If concern for acute infarct MRI recommended. Electronically Signed: Ge Giles MD at 18:29 EDT , Service support ,
[2019-12-16] MEDS: Ondansetron 4 MG/2 ML Vial IV (17:41)
[2019-12-16] MEDS: HYDROmorphone 1 MG/ML Syringe 0.5 MG IV (17:41)
[2019-12-16] MEDS: 0.9% Normal Saline 1,000 ML 150 ML IV ×2 (17:44→22:51)
[2019-12-16 17:46] LABS: Absolute Neutrophil Count 15.1 X10^3/uL (2.0-7.7); Basophil# 0.11 X10^3/uL; Basophil% 0.6 % (0-1); Eosinophil# 0.03 X10^3/uL; Eosinophils% 0.2 % (0-5); Hematocrit 43.1 % (37-47); Hemoglobin 14.5 g/dL (12.0-15.0); Lymphocyte % 6.4 % (19-41); Mean Corp Hgb Conc 33.6 g/dL (32-36); Mean Corpuscular Hgb 30.7 pg (27.0-32.0); Mean Corpuscular Volume 91.1 fL (81-99); Mean Platelet Vol. 10.4 fl (6.2-12.0); Monocyte# 0.66 X10^3/uL; Monocyte% 3.8 % (0-10); NRBC Flagged by Analyzer 0 % (0-5); Neutrophil # 15.12 X10^3/uL (2.7-7.7); Neutrophil % 88.2 % (47-70); Platelet Count 252 K/mm3 (150-450); RBC Distribution Width CV 13.9 % (11.6-14.6); RBC Distribution Width SD 46.5 fl (35.1-43.9); Red Blood Count 4.73 M/mm3 (4.2-5.4); White Blood Count 17.2 K/mm3 (4.4-11.0)
--- NOTE | 2019-12-16 17:55 | RAD_ITS ---
STUDY: X-RAY CHEST REASON FOR EXAM: Female, 54 years old. fall, shortness of breath TECHNIQUE: AP portable COMPARISON: 12/12/2019. FINDINGS: There is mild elevation right hemidiaphragm and prominence of the interstitial markings in the right lower lobes and mild right middle lobe atelectasis. There is no demonstrated pleural abnormality. Normal size heart. Normal mediastinum and alden. Normal visualized pulmonary arteries. Mildly calcified aortic arch and descending thoracic aorta. Dorsal spine demonstrates degenerative change. Normal visualized ribs, clavicles, and shoulders. There is no demonstrated abnormality of the visualized soft tissue structures of the upper abdomen. RAD/Chest 1 View (Portable) IMPRESSION: Elevated right hemidiaphragm and mild right middle lobe atelectasis. Interstitial thickening in the right upper lobe. Electronically Signed: Ge Giles MD at 18:34 EDT , Service support ,
[2019-12-16 18:01] LABS: Anion Gap 8 (5-15); BUN 13 mg/dL (7-18); BUN/Creat Ratio 9.6 RATIO (10-20); Calcium,Total 9.3 mg/dL (8.5-10.1); Chloride 95 mmol/L (98-107); Creatinine, Serum 1.35 mg/dL (0.55-1.02); EST Glomerular Filtration Rate 43 mL/min (>60); Est Glom Filt Rate - Afr Amer 53 mL/min (>60); Estimated Creatinine Clearance 39.41 ml/min; Glucose 343 mg/dL (74-106); Potassium 4.4 mmol/L (3.5-5.1); Sodium Level 130 mmol/L (136-145)
[2019-12-16] MEDS: Ipratropium/Albuterol Sulfate 3 ML AMPUL.NEB INHALATION (18:06)
[2019-12-16] MEDS: Albuterol 2.5 MG/3 ML VIAL.NEB. INHALATION ×3 (18:07)
[2019-12-16] MEDS: Propofol 200 MG/20 ML Vial IV BOLUS (19:17)
--- NOTE | 2019-12-16 19:23 | RAD_ITS ---
STUDY: X-RAY - LEFT ANKLE REASON FOR EXAM: Female, 54 years old. Post reduction. TECHNIQUE: 2 view(s) of the ankle. COMPARISON: None. FINDINGS: Status post closed reduction of the distal tibial and fibular fractures with fracture fragments in near anatomic alignment and position. RAD/Ankle 2 Views IMPRESSION: Status post closed reduction of distal tibial and fibular fractures Electronically Signed: Ge Giles MD at 20:09 EDT , Service support ,
[2019-12-16] MEDS: HYDROmorphone 0.5 MG/0.5 ML SYRINGE IV (19:26)
--- NOTE | 2019-12-16 19:43 | CT_ITS ---
STUDY: CT LEFT ANKLE WITHOUT CONTRAST REASON FOR EXAM: Female, 54 years old. FX OF LT ANKLE RADIATION DOSAGE (If Supplied By Facility): CTDIvol = ( 15.35 ) mGy, DLP = ( 399.82 ) mGycm TECHNIQUE: Thin section transaxial imaging of the ankle was obtained, with sagittal and coronal reconstructed images. Individualized dose optimization techniques were used for this CT. COMPARISON: None. FINDINGS: Acute intra-articular comminuted spiral fracture of the distal fibular shaft with mild separation of fracture fragments. There is an acute intra-articular fracture of the distal posterior tibial shaft with mild separation of fracture fragments. There is also an acute transversely oriented fracture through the distal tibial plafond with separation of fracture fragments and mild medial displacement of the proximal fragment.. Normal tibiotalar articulation and talar dome. Normal talus, calcaneus, navicular and cuboid tarsal bones. Normal subtalar, talonavicular and calcaneocuboid articulations. Normal navicular-cuneiform, cuneiform tarsal bones and intercuneiform articulations. Normal tarsometatarsal articulations and visualized metatarsi. There is diffuse bimalleolar soft tissue swelling. CT/Extremity Lower without Contra IMPRESSION: Acute trimalleolar fracture of the right ankle Electronically Signed: Ge Giles MD at 20:48 EDT , Service support ,
--- NOTE | 2019-12-16 20:14 | PCM.HP.STD ---
Problem List (1) Stage 2 moderate COPD by GOLD classification Status: Chronic (2) Acute and chronic respiratory failure with hypoxia Status: Chronic (3) Cataract Status: Chronic (4) Iron deficiency Status: Chronic (5) Iron deficiency anemia following bariatric surgery Status: Chronic (6) History of gastric bypass Status: Chronic (7) Myocardial infarction Status: Chronic (8) H/O heart artery stent Status: Chronic (9) Pulmonary emboli Status: Chronic (10) Syncope Status: Acute (11) Closed left ankle fracture Status: Acute (12) HTN (hypertension) Status: Chronic (13) Peptic ulcer Status: Chronic (14) Chronic neutrophilia Status: Chronic (15) Osteoarthritis Status: Chronic (16) Morbid obesity Status: Chronic (17) Neutrophilic leukocytosis Status: Chronic (18) Type 2 diabetes mellitus Status: Chronic (19) Schizophrenia Status: Chronic (20) Hip osteoarthritis Status: Chronic Comment: with chronic pain-right hip (21) Iron deficiency anemia due to dietary causes Status: Chronic Comment: exact cause of iron def anemia unknown-felt likely secondary to past history gastric bypass- although chronic blood loss etiology a possibility (has never had colonoscopy)-further workup including hemoccult stool is recommended (22) Morbid obesity with BMI of 45.0-49.9, adult Status: Chronic (23) Pulmonary hypertension Status: Chronic (24) Chronic narcotic use Status: Chronic (25) Depression Status: Chronic (26) Gastroesophageal reflux disease Status: Chronic (27) Parathyroid abnormality Status: Chronic (28) History of PTCA Status: Chronic (29) Vitamin D deficiency Status: Chronic (30) Hyperlipidemia Status: Chronic (31) Thyroid nodule Status: Chronic Comment: deemed to be benign. (32) Benign essential hypertension Status: Chronic (33) CAD (coronary artery disease) Status: Chronic (34) RACHEL (obstructive sleep apnea) Status: Chronic Comment: 17/13 cm of water (35) Spinal stenosis of lumbar region at multiple levels Status: Chronic (36) Tobacco abuse Status: Chronic History of Present Illness Date of Admission: 12/16/19 Chief Complaint: fall The patient is a 54 year old F went to her kitchen, then the next thing she notices is she was on the floor. Presented to the emergency room and was found to have an ankle fracture. She was sedated, then had it reduced in the emergency room. Dr. Mitchell of podiatry was contacted and stated he will see the patient in consultation. Patient said that she heard a snap before she fell. [] Past Medical History Past Medical History (Chronic Problems): Chronic Problems (Last Reviewed 12/16/19 @ 21:[address] Jese Strauss DO) Stage 2 moderate COPD by GOLD classification (Chronic) Acute and chronic respiratory failure with hypoxia (Chronic) Cataract (Chronic) Iron deficiency (Chronic) Iron deficiency anemia following bariatric surgery (Chronic) History of gastric bypass (Chronic) Myocardial infarction (Chronic) H/O heart artery stent (Chronic) Pulmonary emboli (Chronic) HTN (hypertension) (Chronic) Peptic ulcer (Chronic) Chronic neutrophilia (Chronic) Osteoarthritis (Chronic) Morbid obesity (Chronic) Neutrophilic leukocytosis (Chronic) Type 2 diabetes mellitus (Chronic) Schizophrenia (Chronic) Hip osteoarthritis (Chronic) with chronic pain-right hip Iron deficiency anemia due to dietary causes (Chronic) exact cause of iron def anemia unknown-felt likely secondary to past history gastric bypass- although chronic blood loss etiology a possibility (has never had colonoscopy)-further workup including hemoccult stool is recommended Morbid obesity with BMI of 45.0-49.9, adult (Chronic) Pulmonary hypertension (Chronic) Chronic narcotic use (Chronic) Depression (Chronic) Gastroesophageal reflux disease (Chronic) Parathyroid abnormality (Chronic) History of PTCA (Chronic) Vitamin D deficiency (Chronic) Hyperlipidemia (Chronic) Thyroid nodule (Chronic) deemed to be benign. Benign essential hypertension (Chronic) CAD (coronary artery disease) (Chronic) RACHEL (obstructive sleep apnea) (Chronic) 17/13 cm of water Spinal stenosis of lumbar region at multiple levels (Chronic) Tobacco abuse (Chronic) Medical History: Medical History (Last Reviewed 12/16/19 @ 21:[address] Jese Strauss DO) HTN (hypertension) (Chronic) I10 Peptic ulcer (Chronic) K27.9 Chronic neutrophilia (Chronic) D72.828 Osteoarthritis (Chronic) M19.90 Morbid obesity (Chronic) E66.01 Neutrophilic leukocytosis (Chronic) D72.9 Type 2 diabetes mellitus (Chronic) E11.9 Schizophrenia (Chronic) F20.9 Hip osteoarthritis (Chronic) M16.9 with chronic pain-right hip Iron deficiency anemia due to dietary causes (Chronic) D50.8 exact cause of iron def anemia unknown-felt likely secondary to past history gastric bypass- although chronic blood loss etiology a possibility (has never had colonoscopy)-further workup including hemoccult stool is recommended Morbid obesity with BMI of 45.0-49.9, adult (Chronic) E66.01, Z68.42 Pulmonary hypertension (Chronic) I27.2 Chronic narcotic use (Chronic) F11.90 Depression (Chronic) F32.9 Gastroesophageal reflux disease (Chronic) K21.9 Parathyroid abnormality (Chronic) E21.5 Vitamin D deficiency (Chronic) E55.9 Hyperlipidemia (Chronic) E78.5 Thyroid nodule (Chronic) E04.1 deemed to be benign. Benign essential hypertension (Chronic) I10 CAD (coronary artery disease) (Chronic) I25.10 RACHEL (obstructive sleep apnea) (Chronic) G47.33 17/13 cm of water Spinal stenosis of lumbar region at multiple levels (Chronic) M48.06 Tobacco abuse (Chronic) Z72.0 Bipolar 2 disorder F31.81 History of pulmonary embolism Z86.711 Schizoaffective disorder F25.9 Allergies amoxicillin Allergy (Verified 12/12/19 15:02) Itching erythromycin base Allergy (Verified 12/12/19 15:02) Unknown methadone Allergy (Verified 12/12/19 15:02) Itching metolazone Allergy (Verified 12/12/19 15:02) Unknown Penicillins Allergy (Verified 12/12/19 15:02) Hives Sulfa (Sulfonamide Antibiotics) Allergy (Verified 12/12/19 15:02) Hives acetaminophen [From Percocet] Adverse Reaction (Verified 12/12/19 15:02) Itching clarithromycin [From Biaxin] Adverse Reaction (Verified 12/12/19 15:02) Nausea ibuprofen Adverse Reaction (Verified 12/12/19 15:02) 3 BLEEDING ULCERS 3 BLEEDING ULCERS morphine Adverse Reaction (Verified 12/12/19 15:02) HEADACHE HEADACHE oxycodone [From Percocet] Adverse Reaction (Verified 12/12/19 15:02) Itching Home Medications: Ambulatory Orders Medication Instructions Recorded Atorvastatin Calcium [Lipitor] 80 mg PO QHS 08/22/15 Clopidogrel Bisulfate [Plavix] 75 mg PO QHS 08/22/15 Metoprolol(XL)Succ [Toprol Xl 50 mg PO DAILY 08/22/15 (Beta Trino)] Nitroglycerin 0.4 mg SL PRN PRN 09/05/17 Duloxetine Hcl [Cymbalta] 60 mg PO DAILY 01/16/17 amlodipine 10 mg tablet 10 mg PO DAILY tab 05/02/17 potassium chloride 10 mEq 10 meq PO DAILY #60 tab 06/16/17 tablet,extended release(part/cryst) Pregabalin [Lyrica] 75 mg PO TID 03/08/18 Risperidone 4 mg PO QHS 03/08/18 Tizanidine HCl 6 mg PO TID PRN PRN 03/08/18 traZODone [Desyrel] 200 mg PO QHS 03/08/18 Furosemide [Lasix] 20 mg PO DAILY 11/20/18 Lisinopril 20 mg PO QHS 11/20/18 Mirabegron [Myrbetriq] 25 mg PO DAILY 11/20/18 Apixaban [Eliquis] 5 mg PO BID 05/02/19 Fluticasone/Salmeterol [Advair Hfa 2 puff INHALATION DAILY 05/02/19 230-21 Mcg Inhaler] albuterol sulfate 90 mcg/actuation 2 puff INHALATION Q6H PRN 06/27/19 aerosol inhaler buspirone 30 mg tablet 30 mg PO BID tab 06/27/19 sucralfate 1 gram tablet 1 g PO QACHS 06/27/19 Duloxetine HCl 30 mg PO DAILY 08/22/19 Escitalopram Oxalate [Lexapro] 20 mg PO DAILY 08/22/19 Insulin Glargine [Lantus SoloStar 30 units SUBCUT BID 08/22/19 Pen] Nystatin [Nystop] 1 applic TP 4X/DAY 08/22/19 proMETHazine tablet [Phenergan 12.5 - 25 mg PO BID PRN PRN 08/22/19 tablet] Lactobacillus Acidophilus 2 tab PO BID #120 tab 08/25/19 [Acidophilus] Nicotine [Nicoderm] 14 mg TRANSDERM. DAILY patch 08/25/19 tiotropium bromide 2.5 2 puff INHALATION DAILY #4 g 09/30/19 mcg/actuation mist for inhalation montelukast 10 mg tablet 10 mg PO QHS #30 tab 10/30/19 albuterol sulfate 2.5 mg INHALATION Q4H PRN #180 ml 12/11/19 Prednisone [Deltasone] 40 mg PO DAILY #10 tab 10/08/20 Surgical History: Surgical History (Last Reviewed 12/16/19 @ 21:[address] Jese Strauss DO) History of PTCA (Chronic) Z98.61 History of appendectomy Z98.890, Z90.49 History of carpal tunnel surgery of left wrist Z98.890 History of cholecystectomy Z98.890, Z90.49 History of gastric bypass Z98.84 History of tonsillectomy Z98.890, Z90.89 history of carpal tunnel release left wrist 2018 history of right hip surgery Surgical History: appendectomy, cholecystectomy, tonsillectomy, - - Right lower extremity surgery x3 as well as bone grafting, appendectomy, cholecystectomy, gastric bypass, hernia repairs, hip replacement, tonsillectomy. 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 Jese Strauss DO) Mother Heart disease Cancer Father Hypertension Arthritis Hyperlipemia Grandmother Breast cancer Heart disease Grandfather Heart disease History Items: Hypertension Maternal Family History: Family History (Last Reviewed 12/16/19 @ 21:[address] Jese Strauss DO) Mother Heart disease Cancer Father Hypertension Arthritis Hyperlipemia Grandmother Breast cancer Heart disease Grandfather Heart disease History Items: Cancer, Heart Disease Paternal Family History: Family History (Last Reviewed 12/16/19 @ 21:[address] Jese Strauss DO) Mother Heart disease Cancer Father Hypertension Arthritis Hyperlipemia Grandmother Breast cancer Heart disease Grandfather Heart disease History Items: High Cholesterol, Heart Disease, Hypertension Review of Systems Comment: Patient complains of shortness of breath and productive sputum. Denies any sick contacts denies any contact with COVID-19. All review of systems were negative except as mentioned above in the history of present illness and the other review of systems. VTE Information - Inpt Only VTE Present on Admission: No VTE Mechan Device Prophylaxis: SCD's Reason prophylaxis not ordered:: Treatment Not Indicated Patient Problems: Active and Suspected Problems (Last Reviewed 12/16/19 @ 21:[address] Jese Strauss DO) Syncope (Acute) Closed left ankle fracture (Acute) - Physical Exam Vitals/I&O's: Vital Signs Temp Pulse Resp BP Pulse Ox 36.9 C 67 19 H 130/70 H 99 12/16/19 16:40 12/16/19 20:09 12/16/19 20:09 12/16/19 19:26 12/16/19 20:09 Oxygen Flow Rate (L/min) [3] 6 Oxygen Flow Rate (L/min) [2] 6 Oxygen Flow Rate (L/min) [1 ( 2 Initial Baseline)] Oxygen Flow Rate (L/min) 3 Oxygen Delivery Method [3] Nasal Cannula Oxygen Delivery Method [2] Nasal Cannula Oxygen Delivery Method [1 ( Nasal Cannula Initial Baseline)] Oxygen Delivery Method Nasal Cannula Weight: 113.6 kg Body Mass Index (BMI) 44.4 Finger Stick Blood Glucose 422 General: Alert, No apparent distress HEENT: Atraumatic, Normocephalic, - - no Scleral icterus Oral: - - Wearing a mask, not removed. Lungs: Normal air movement, Wheezes - Faint Cardiovascular: Regular rate, Regular Rhythm, Normal S1, Normal S2, No murmurs Abdomen: Bowel Sounds Present, Soft, Non Tender, Non-Distended, No Hepato-splenomegaly Extremities: No edema, - - Left leg not visualized as it is under cast. Skin: No rashes, No breakdown Musculoskeletal: No Muscle Wasting Neurological: Muscle tone normal, Sensory exam intact to light touch and pain, - Psych/Mental Status: Normal Affect, Appropriate Laboratory Results 12/16/19 17:09: WBC 17.2 H, RBC 4.73, Hgb 14.5, Hct 43.1, MCV 91.1, MCH 30.7, MCHC 33.6, RDW Std Deviation 46.5 H, RDW Coeff of Kaycee 13.9, Plt Count 252, MPV 10.4, Immature Gran % (Auto) 0.800, Neut % (Auto) 88.2 H, Lymph % (Auto) 6.4 L, Letcher % (Auto) 3.8, Eos % (Auto) 0.2, Baso % (Auto) 0.6, Absolute Neuts (auto) 15.1 H, Absolute Lymphs (auto) 1.10, Nucleated RBC % 0 12/16/19 17:09: Sodium 130 L, Potassium 4.4, Chloride 95 L, Carbon Dioxide 27.0, Anion Gap 8, BUN 13, Creatinine 1.35 H, Estim Creat Clear Calc 39.41, Est GFR (MDRD) Af Amer 53 L, Est GFR (MDRD) Non-Af 43 L, BUN/Creatinine Ratio 9.6 L, Glucose 343 H, Calcium 9.3, Troponin I < 0.015 EKG reviewed and showed sinus bradycardia with no acute changes. Clinical Impression(s) from Imaging Studies Ankle X-Ray 12/16/19 17:35 IMPRESSION: Acute displaced fractures of the distal tibia and fibula Electronically Signed: Ge Giles MD at 18:42 EDT , Service support , Brain CT 12/16/19 17:36 IMPRESSION: Moderate periventricular white matter ischemic changes. No evidence for acute bleed. If concern for acute infarct MRI recommended. Electronically Signed: Ge Giles MD at 18:29 EDT , Service support , Chest X-Ray 12/16/19 17:55 IMPRESSION: Elevated right hemidiaphragm and mild right middle lobe atelectasis. Interstitial thickening in the right upper lobe. Electronically Signed: Ge Giles MD at 18:34 EDT , Service support , Ankle X-Ray 12/16/19 19:23 IMPRESSION: Status post closed reduction of distal tibial and fibular fractures Electronically Signed: Ge Giles MD at 20:09 EDT , Service support , Lower Extremity CT 12/16/19 19:43 IMPRESSION: Acute trimalleolar fracture of the right ankle Electronically Signed: Ge Giles MD at 20:48 EDT , Service support , Current Medications Sodium Chloride () 1,000 mls @ 150 mls/hr IV .Q6H40M [facility] Last Admin: 12/16/19 17:44 Dose: 150 mls/hr Documented by: Assessment/Plan All Active Problems (Last Reviewed 12/16/19 @ 21:[address] Jese Strauss, DO) Syncope (Acute) Closed left ankle fracture (Acute) Diarrhea (Resolved) Hypokalemia (Resolved) 1. Syncope: I'm not sure this was actually syncope patient reported to hear a snap and then the next thing she knew she was on the ground. Patient thinks that she just broke her ankle while she was standing up not from the fall itself. Is possible patient may have hit her head and had concussion note patient is not sure if she did hit her head or not. Head CT was negative for any bleed. Creatine up slightly from baseline, so I will hold furosemide and administer additional IVF. Check a 2d echo and cycle troponins. 2. Left ankle fracture, trimalleolar reduced in ED. Podiatry consulted. Surgery delayed until further syncope work up and evaluation completed. Non-weight bearing LLE. check 25 OH d level and replace if less than 50. pain control with hydromorphone given Percocet and morphine allergy. Discussed with patient that surgery will be delayed pending the further work-up in regards to this possible syncopal episode but also the fact that she is on apixaban as well as clopidogrel which have both been held. Also form that patient has a lot of significant swelling and that surgery may be delayed even after discharge. Definitive decision for timing of surgery will be ultimately up to podiatry. 3. H/O VTE: hold apixaban. 4. CAD: hold clopidogrel. check records from Dr. Deleon's office. Patient will at least need a cardiology follow up as outpt, unless warranted inpatient. 5. DM2: continue basal insulin, add SSI 6. COPD: started on prednisone on the 8th, continue 5 day burst. wean oxygen as tolerated. 7. VTE prophylaxis: SCDs for now pending surgery, then resume apixaban. 8. Advanced care planning: Discussed with the patient. Patient states that she does not want CPR. She is okay with intubation for surgery, however. Otherwise she would be DNR Comfort Care arrest no intubation but okay for intubation for surgery. I told patient that we will leave her DNR Comfort Care arrest and okay for intubation for now. Inpatient E&M: 69221 Init Hosp L3
--- NOTE | 2019-12-16 21:41 | ECHOCS_ITS ---
Reason For Study: SYNCOPE Procedure This was a 2D Doppler, Color Flow transthoracic echocardiogram. The study was technically difficult. Contrast injection was performed. The exam was of poor technical quality due to body habitus. Exam performed portable in patient room. Left Ventricle Normal LV size. Left ventricular systolic function is normal. The estimated ejection fraction is 60 %. Transmitral doppler flow suggestive of impaired relaxation of left ventricle. No regional wall motion abnormalities noted. Right Ventricle Normal RV size. Normal systolic function. Atria Normal left atrium. Normal right atrium. No doppler evidence for ASD. Mitral Valve There is no mitral annular calcification. Normal mitral valve. Trivial mitral valve insufficiency. Tricuspid Valve Normal tricuspid valve. Trivial tricuspid valve insufficiency. Unable to estimate RV systolic pressure/pulmonary artery pressure due to technically difficult study. Aortic Valve Trisinus/trileaflet aortic valve. Mild focal aortic valve calcification. Trivial aortic valve insufficiency. Pulmonic Valve The pulmonic valve is not well visualized. Great Vessels Normal sized aortic root. Pericardium/Pleural No pericardial effusion. Medication Diluted definity 5.0ml given slow IV push to enhance endocardial definition. MMode/2D Measurements & Calculations RVDd: 3.3 cm LVOT diam: 2.0 cm Ao root diam: 3.7 cm LVOT area: 3.2 cm2 LAV(MOD-bp): 46.1 ml LA dimension(2D): 4.0 cm LA A4 area: 16.5 cm2 LAV(MOD-bp) Indexed: 21.8 ml/m2 LAV(MOD-sp2): 41.1 ml LAV(MOD-sp4): 44.5 ml RA A4 area: 14.2 cm2 Time Measurements MV dec time: 0.23 sec Doppler Measurements & Calculations MV E max natan: 84.1 cm/sec Lat Peak E' Natan: 8.3 cm/sec Med Peak E' Natan: 6.1 cm/sec MV A max natan: 107.8 cm/sec E/E' lat: 10.2 E/E' med: 13.9 MV E/A: 0.78 Ao V2 max: 202.2 cm/sec LV V1 max: 125.2 cm/sec Ao max P.4 mmHg LV V1 max P.3 mmHg FELI(V,D): 2.0 cm2 Interpretation Summary The study was technically difficult. Contrast injection was performed. Left ventricular systolic function is normal. The estimated ejection fraction is 60 %. Trivial mitral valve insufficiency. Trivial tricuspid valve insufficiency. Mild focal aortic valve calcification. Trivial aortic valve insufficiency. Unable to estimate RV systolic pressure/pulmonary artery pressure due to technically difficult study. Transmitral doppler flow suggestive of impaired relaxation of left ventricle Ordering Physician: Jese Strauss Referring Physician: IRWIN CHAVEZ Performed By: Mariela Kent, CAITLYN, RVT
[2019-12-16 21:55] LABS: Bedside Glucose 447 mg/dL (70-110)
[2019-12-16] MEDS: HYDROmorphone 2 MG TABLET 4 MG PO (22:33)
[2019-12-16] MEDS: Sucralfate 1 GM Tablet PO (22:38)
[2019-12-16] MEDS: traZODone 100 MG Tablet 200 MG PO (22:38)
[2019-12-16] MEDS: busPIRone 15 MG TABLET 30 MG PO (22:38)
[2019-12-16] MEDS: Lisinopril 20 MG Tablet PO (22:38)
[2019-12-16] MEDS: Atorvastatin Calcium 80 MG Tablet PO (22:38)
[2019-12-16] MEDS: RisperiDONE 2 MG Tablet 4 MG PO (22:38)
[2019-12-16] MEDS: Montelukast 10 MG Tablet PO (22:38)
[2019-12-16] MEDS: Nystatin Powder 15gm Bottle 1 APPLIC TOPICAL (22:39)
[2019-12-16] MEDS: Pregabalin 75 MG Capsule PO (22:39)
[2019-12-16] MEDS: Insulin Lispro 100 UNIT/ML INSULN.PEN 10 UNIT SC (22:40)
[2019-12-16] MEDS: 0.9% Saline Lock 10 ML Syringe IV (22:52)
--- NOTE | 2019-12-16 23:30 | NURSING ---
Orthostatic VS ordered. BP and HR obtained in supine and sitting position. Upon standing, pt unable to remain standing to obtain BP reading d/t pain and feeling unsteady. Will attempt next time pt is up if more comfortable at that time.
[2019-12-16 23:49] LABS: Bacteria 0 SEEN /hpf (None Seen); Mucous, Urine 0 SEEN /hpf (<or=2+)
[2019-12-16 23:50] LABS: Color, Urine Yellow (Yellow); Glucose, Dipstick 1000 mg/dl (Normal); Ketone-Dipstick Negative (Negative); Leukocyte Esterase-Dipstick 500 /ul (Negative); Nitrite-Dipstick Negative (Negative); Occult Blood-Urine 10 /ul (Negative); Protein-Dipstick Negative (Negative); Urine Bilirubin Dipstick Negative (Negative); Urine Clarity Clear (Clear); Urine Urobilinogen Normal (Normal); Urine pH 6.5 (5.0 - 8.0)
[2019-12-17] VITALS (15 sets, daily range): BP systolic 115–134; BP diastolic 55–70; PULSE 53–92; RESP 12–18; TEMP 36.6–36.9; O2SAT 92–99
[2019-12-17 00:03] LABS: Red Blood Cells-Urine 0-5 SEEN /hpf (0-5); Squamous Epithelial Cells - UA 0-5 SEEN /hpf (5-10); White Blood Cells 10-25 SEEN /hpf (0-5)
--- NOTE | 2019-12-17 00:34 | CPS ---
bipap mask kept leaking at high pressures of cpap. 16/10 was the best seal obtained
--- NOTE | 2019-12-17 00:45 | NURSING ---
Pt refusing Troponin after lab attempted once and was unable to get it. Pt agreeable to next shift attempting with AM labwork.
[2019-12-17] MEDS: HYDROmorphone 2 MG TABLET 4 MG PO ×4 (01:23→17:10)
[2019-12-17] MEDS: tiZANidine HCl 2 MG Tablet 6 MG PO ×4 (01:24→22:27)
[2019-12-17 05:42] LABS: Absolute Lymphocyte Count 2.17 X10^3/uL (0.83-4.51); Basophil# 0.08 X10^3/uL; Basophil% 0.6 % (0-1); Eosinophil# 0.11 X10^3/uL; Eosinophils% 0.8 % (0-5); Hematocrit 39.5 % (37-47); Hemoglobin 13.1 g/dL (12.0-15.0); Lymphocyte # 2.17 X10^3/ul (4.0); Mean Corp Hgb Conc 33.2 g/dL (32-36); Mean Corpuscular Hgb 30.7 pg (27.0-32.0); Mean Corpuscular Volume 92.5 fL (81-99); Mean Platelet Vol. 9.8 fl (6.2-12.0); Monocyte# 1.07 X10^3/uL; Monocyte% 7.4 % (0-10); NRBC Flagged by Analyzer 0 % (0-5); Neutrophil # 10.95 X10^3/uL (2.7-7.7); Neutrophil % 75.9 % (47-70); Platelet Count 197 K/mm3 (150-450); RBC Distribution Width CV 14.2 % (11.6-14.6); Red Blood Count 4.27 M/mm3 (4.2-5.4); White Blood Count 14.4 K/mm3 (4.4-11.0)
[2019-12-17 06:01] LABS: Anion Gap 4 (5-15); BUN 10 mg/dL (7-18); BUN/Creat Ratio 13.7 RATIO (10-20); Calcium,Total 8.8 mg/dL (8.5-10.1); Chloride 101 mmol/L (98-107); Creatinine, Serum 0.73 mg/dL (0.55-1.02); EST Glomerular Filtration Rate 88 mL/min (>60); Est Glom Filt Rate - Afr Amer 106 mL/min (>60); Estimated Creatinine Clearance 72.88 ml/min; Glucose 187 mg/dL (74-106); Potassium 3.7 mmol/L (3.5-5.1); Sodium Level 135 mmol/L (136-145)
--- NOTE | 2019-12-17 06:40 | PCM.CONS.GEN ---
Reason for Consult Date of Consultation: 12/17/19 Reason for Consultation: Left ankle fracture History of Present Illness: The patient is a 54 year old female with multiple comorbidities including but not limited to diabetes, CAD on anticoagulation, morbid obesity, COPD, tobacco use was admitted due to syncopal episode and displaced trimalleolus ankle fracture. She had closed reduction in the ER, has splint clean, dry and intact. She is on Dilaudid, she relates the ankle is painful. She relates she lives alone, has a friend which helps her. She has uncontrolled diabetes, and she continues to smoke. Past Medical History Past Medical History (Chronic Problems): Chronic Problems (Last Reviewed 12/16/19 @ 21:[address] Jese Strauss DO) Stage 2 moderate COPD by GOLD classification (Chronic) Acute and chronic respiratory failure with hypoxia (Chronic) Cataract (Chronic) Iron deficiency (Chronic) Iron deficiency anemia following bariatric surgery (Chronic) History of gastric bypass (Chronic) Myocardial infarction (Chronic) H/O heart artery stent (Chronic) Pulmonary emboli (Chronic) HTN (hypertension) (Chronic) Peptic ulcer (Chronic) Chronic neutrophilia (Chronic) Osteoarthritis (Chronic) Morbid obesity (Chronic) Neutrophilic leukocytosis (Chronic) Type 2 diabetes mellitus (Chronic) Schizophrenia (Chronic) Hip osteoarthritis (Chronic) with chronic pain-right hip Iron deficiency anemia due to dietary causes (Chronic) exact cause of iron def anemia unknown-felt likely secondary to past history gastric bypass- although chronic blood loss etiology a possibility (has never had colonoscopy)-further workup including hemoccult stool is recommended Morbid obesity with BMI of 45.0-49.9, adult (Chronic) Pulmonary hypertension (Chronic) Chronic narcotic use (Chronic) Depression (Chronic) Gastroesophageal reflux disease (Chronic) Parathyroid abnormality (Chronic) History of PTCA (Chronic) Vitamin D deficiency (Chronic) Hyperlipidemia (Chronic) Thyroid nodule (Chronic) deemed to be benign. Benign essential hypertension (Chronic) CAD (coronary artery disease) (Chronic) RACHEL (obstructive sleep apnea) (Chronic) 17/13 cm of water Spinal stenosis of lumbar region at multiple levels (Chronic) Tobacco abuse (Chronic) Medical History: Medical History (Last Reviewed 12/16/19 @ 21:[address] Jese Strauss DO) HTN (hypertension) (Chronic) I10 Peptic ulcer (Chronic) K27.9 Chronic neutrophilia (Chronic) D72.828 Osteoarthritis (Chronic) M19.90 Morbid obesity (Chronic) E66.01 Neutrophilic leukocytosis (Chronic) D72.9 Type 2 diabetes mellitus (Chronic) E11.9 Schizophrenia (Chronic) F20.9 Hip osteoarthritis (Chronic) M16.9 with chronic pain-right hip Iron deficiency anemia due to dietary causes (Chronic) D50.8 exact cause of iron def anemia unknown-felt likely secondary to past history gastric bypass- although chronic blood loss etiology a possibility (has never had colonoscopy)-further workup including hemoccult stool is recommended Morbid obesity with BMI of 45.0-49.9, adult (Chronic) E66.01, Z68.42 Pulmonary hypertension (Chronic) I27.2 Chronic narcotic use (Chronic) F11.90 Depression (Chronic) F32.9 Gastroesophageal reflux disease (Chronic) K21.9 Parathyroid abnormality (Chronic) E21.5 Vitamin D deficiency (Chronic) E55.9 Hyperlipidemia (Chronic) E78.5 Thyroid nodule (Chronic) E04.1 deemed to be benign. Benign essential hypertension (Chronic) I10 CAD (coronary artery disease) (Chronic) I25.10 RACHEL (obstructive sleep apnea) (Chronic) G47.33 17/13 cm of water Spinal stenosis of lumbar region at multiple levels (Chronic) M48.06 Tobacco abuse (Chronic) Z72.0 Bipolar 2 disorder F31.81 History of pulmonary embolism Z86.711 Schizoaffective disorder F25.9 Allergies amoxicillin Allergy (Verified 12/12/19 15:02) Itching erythromycin base Allergy (Verified 12/12/19 15:02) Unknown methadone Allergy (Verified 12/12/19 15:02) Itching metolazone Allergy (Verified 12/12/19 15:02) Unknown Penicillins Allergy (Verified 12/12/19 15:02) Hives Sulfa (Sulfonamide Antibiotics) Allergy (Verified 12/12/19 15:02) Hives acetaminophen [From Percocet] Adverse Reaction (Verified 12/12/19 15:02) Itching clarithromycin [From Biaxin] Adverse Reaction (Verified 12/12/19 15:02) Nausea ibuprofen Adverse Reaction (Verified 12/12/19 15:02) 3 BLEEDING ULCERS 3 BLEEDING ULCERS morphine Adverse Reaction (Verified 12/12/19 15:02) HEADACHE HEADACHE oxycodone [From Percocet] Adverse Reaction (Verified 12/12/19 15:02) Itching Home Medications: Ambulatory Orders Medication Instructions Recorded Atorvastatin Calcium [Lipitor] 80 mg PO QHS 08/22/15 Clopidogrel Bisulfate [Plavix] 75 mg PO QHS 08/22/15 Metoprolol(XL)Succ [Toprol Xl 50 mg PO DAILY 08/22/15 (Beta Trino)] Nitroglycerin 0.4 mg SL PRN PRN 11/08/16 amlodipine 10 mg tablet 10 mg PO DAILY tab 05/02/17 potassium chloride 10 mEq 10 meq PO DAILY #60 tab 06/16/17 tablet,extended release(part/cryst) Pregabalin [Lyrica] 75 mg PO TID 03/08/18 Risperidone 4 mg PO QHS 03/08/18 Tizanidine HCl 6 mg PO TID PRN PRN 03/08/18 traZODone [Desyrel] 200 mg PO QHS 03/08/18 Furosemide [Lasix] 20 mg PO DAILY 11/20/18 Lisinopril 20 mg PO QHS 11/20/18 Mirabegron [Myrbetriq] 25 mg PO DAILY 11/20/18 Apixaban [Eliquis] 5 mg PO BID 05/02/19 Fluticasone/Salmeterol [Advair Hfa 2 puff INHALATION DAILY 05/02/19 230-21 Mcg Inhaler] albuterol sulfate 90 mcg/actuation 2 puff INHALATION Q6H PRN 06/27/19 aerosol inhaler buspirone 30 mg tablet 30 mg PO BID tab 06/27/19 sucralfate 1 gram tablet 1 g PO QACHS 06/27/19 Insulin Glargine [Lantus SoloStar 30 units SUBCUT BID 08/22/19 Pen] Nystatin [Nystop] 1 applic TP 4X/DAY 08/22/19 proMETHazine tablet [Phenergan 12.5 - 25 mg PO BID PRN PRN 08/22/19 tablet] Nicotine [Nicoderm] 14 mg TRANSDERM. DAILY patch 08/25/19 tiotropium bromide 2.5 2 puff INHALATION DAILY #4 g 09/30/19 mcg/actuation mist for inhalation montelukast 10 mg tablet 10 mg PO QHS #30 tab 10/30/19 albuterol sulfate 2.5 mg INHALATION Q4H PRN #180 ml 12/11/19 Lactobacillus Acidophilus 2 tab PO BID 12/16/19 [Acidophilus] Prednisone [Deltasone] 20 mg PO DAILY 12/16/19 Surgical History: Surgical History (Last Reviewed 12/16/19 @ 21:[address] Jese Strauss DO) History of PTCA (Chronic) Z98.61 History of appendectomy Z98.890, Z90.49 History of carpal tunnel surgery of left wrist Z98.890 History of cholecystectomy Z98.890, Z90.49 History of gastric bypass Z98.84 History of tonsillectomy Z98.890, Z90.89 history of carpal tunnel release left wrist 2018 history of right hip surgery Surgical History: appendectomy, cholecystectomy, tonsillectomy, - - Right lower extremity surgery x3 as well as bone grafting, appendectomy, cholecystectomy, gastric bypass, hernia repairs, hip replacement, tonsillectomy. Psychiatric History: Anxiety, Depression, Schizophrenia PRINCIPAL ENGINEER History: No pertinent PRINCIPAL ENGINEER history Smoking Status: Heavy Smoker (>10/day) Tobacco Use: Cigarettes Drugs: Marijuana - *Family History Sibling Family History: Family History (Last Reviewed 12/16/19 @ 21:[address] Jese Strauss DO) Mother Heart disease Cancer Father Hypertension Arthritis Hyperlipemia Grandmother Breast cancer Heart disease Grandfather Heart disease History Items: Hypertension Maternal Family History: Family History (Last Reviewed 12/16/19 @ 21:[address] Jese Strauss DO) Mother Heart disease Cancer Father Hypertension Arthritis Hyperlipemia Grandmother Breast cancer Heart disease Grandfather Heart disease History Items: Cancer, Heart Disease Paternal Family History: Family History (Last Reviewed 12/16/19 @ 21:[address] Jese Strauss DO) Mother Heart disease Cancer Father Hypertension Arthritis Hyperlipemia Grandmother Breast cancer Heart disease Grandfather Heart disease History Items: High Cholesterol, Heart Disease, Hypertension Review of Systems Constitutional: Denies: Chills, Fever Gastrointestinal: Denies: Nausea Patient Problems: Active and Suspected Problems (Last Reviewed 12/16/19 @ 21:[address] Jese Strauss DO) Syncope (Acute) Closed left ankle fracture (Acute) - Physical Exam Vitals/I&O's: Vital Signs Temp Pulse Resp BP Pulse Ox 97.9 F 53 L 14 129/69 H 96 12/17/19 02:03 12/17/19 03:00 12/17/19 02:59 12/17/19 02:03 12/17/19 02:59 Oxygen Flow Rate (L/min) [3] 6 Oxygen Flow Rate (L/min) [2] 6 Oxygen Flow Rate (L/min) [1 ( 2 Initial Baseline)] Oxygen Flow Rate (L/min) 3 Oxygen Delivery Method [3] Nasal Cannula Oxygen Delivery Method [2] Nasal Cannula Oxygen Delivery Method [1 ( Nasal Cannula Initial Baseline)] Oxygen Delivery Method Bi-pap Weight: 112 kg Body Mass Index (BMI) 43.7 Finger Stick Blood Glucose 422 Orthostatic Vital Signs Start: 12/17/19 00:52 Freq: q24h Status: Active Protocol: Activity Type Activity Date Activity User E-Sign Co-Sign Detail Recorded Client Recorded Date Recorded By Document 12/16/19 23:30 [facility] [place] [id number] 12/17/19 00:53 JC 12/16/19 23:30 Orthostatic Vitals Sitting -Blood Pressure (90/60-120/80) 148/91 H -Extremity Use Left Arm -Pulse Rate (60-100) 60 Lying -Blood Pressure (90/60-120/80) 149/72 H -Extremity Use Left Arm -Pulse Rate (60-100) 57 L Intake and Output for Last 24 Hours 12/15/19 12/16/19 12/17/19 23:59 23:59 23:59 Intake Total 490 / 1240 1252 / 1252 Output Total 700 / 700 Balance 490 / 540 552 / 552 General: Alert, Oriented x3, Cooperative, No apparent distress Extremities: Capillary Refill Less than 3 Seconds, No Calf Tenderness, - - Splint to the left foot/ankle/leg is clean, dry and intact, CFT < 2 seconds to all toes and she is able to move toes dorsally and plantarly with no pain to the left foot, she relates to left ankle pain c/w injury, no heel pain and no other pain to the foot or leg. Sensation intact w/ light touch L. Psych/Mental Status: Appropriate, Alert and oriented to time, place, person, mood and affect Laboratory Results 12/16/19 17:09: WBC 17.2 H, RBC 4.73, Hgb 14.5, Hct 43.1, MCV 91.1, MCH 30.7, MCHC 33.6, RDW Std Deviation 46.5 H, RDW Coeff of Kayce[place] 13.9, Plt Count 252, MPV 10.4, Immature Gran % (Auto) 0.800, Neut % (Auto) 88.2 H, Lymph % (Auto) 6.4 L, [place] % (Auto) 3.8, Eos % (Auto) 0.2, Baso % (Auto) 0.6, Absolute Neuts (auto) 15.1 H, Absolute Lymphs (auto) 1.10, Nucleated RBC % 0 12/16/19 17:09: Sodium 130 L, Potassium 4.4, Chloride 95 L, Carbon Dioxide 27.0, Anion Gap 8, BUN 13, Creatinine 1.35 H, Estim Creat Clear Calc 39.41, Est GFR (MDRD) Af Amer 53 L, Est GFR (MDRD) Non-Af 43 L, BUN/Creatinine Ratio 9.6 L, Glucose 343 H, Calcium 9.3, Troponin I < 0.015 12/16/19 21:47: POC Glucose 447 H 12/16/19 22:15: Troponin I < 0.015 12/16/19 23:35: Urine Color Yellow, Urine Clarity Clear, Urine pH 6.5, Ur Specific [place] 1.010, Urine Protein Negative, Urine Glucose (UA) 1000 H, Urine Ketones Negative, Urine Occult Blood 10 H, Urine Nitrite Negative, Urine Bilirubin Negative, Urine Urobilinogen Normal, Ur Leukocyte Esterase 500 H, Urine RBC 0-5 SEEN, Urine WBC 10-25 SEEN, Ur Squamous Epith Cells 0-5 SEEN, Urine Bacteria 0 SEEN, Urine Mucus 0 SEEN 12/17/19 05:26: Troponin I < 0.015 12/17/19 05:26: WBC 14.4 H, RBC 4.27, Hgb 13.1, Hct 39.5, MCV 92.5, MCH 30.7, MCHC 33.2, RDW Std Deviation 48.0 H, RDW Coeff of [place]cee 14.2, Plt Count 197, MPV 9.8, Immature Gran % (Auto) 0.300, Neut % (Auto) 75.9 H, Lymph % (Auto) 15.0 L, [place] % (Auto) 7.4, Eos % (Auto) 0.8, Baso % (Auto) 0.6, Absolute Neuts (auto) 11.0 H, Absolute Lymphs (auto) 2.17, Nucleated RBC % 0 12/17/19 05:26: Sodium 135 L, Potassium 3.7, Chloride 101, Carbon Dioxide 30.0, Anion Gap 4 L, BUN 10, Creatinine 0.73, Estim Creat Clear Calc 72.88, Est GFR (MDRD) Af Amer 106, Est GFR (MDRD) Non-Af 88, BUN/Creatinine Ratio 13.7, Glucose 187 H, Calcium 8.8 Current Medications Albuterol Sulfate (Ventolin Aerosols) 2.5 mg INHALATION Q4H PRN PRN PRN Reason: Sob &/Or Wheezing Albuterol/Ipratropium (Duoneb) 3 ml INHALATION Q6HWA.RT [facility] Amlodipine Besylate (Norvasc) 10 mg PO DAILY [facility] Atorvastatin Calcium (Lipitor) 80 mg PO QHS [facility] Last Admin: 12/16/19 22:38 Dose: 80 mg Documented by: Buspirone HCl (Buspar) 30 mg PO BID [facility] Last Admin: 12/16/19 22:38 Dose: 30 mg Documented by: Dextrose (D50w Syringe) 0 gm IV X1 PRN; Protocol PRN Reason: Hypoglycemia Escitalopram Oxalate (Lexapro) 20 mg PO DAILY [facility] Glucagon () 1 mg IM .X1 PRN PRN Reason: Hypoglycemia Hydromorphone HCl (Dilaudid Tablet) 2 mg PO Q3H PRN PRN PRN Reason: Pain Score 4-5 Hydromorphone HCl (Dilaudid Tablet) 4 mg PO Q3H PRN PRN Reason: Pain Score 6-10 Last Admin: 12/17/19 01:23 Dose: 4 mg Documented by: Hydromorphone HCl (Dilaudid Inj) 0.5 mg IV Q4H PRN PRN PRN Reason: Pain Score 4-10 Sodium Chloride () 250 mls @ 15 mls/hr IV .[id number] PRN PRN Reason: Saline Flush Sodium Chloride () 250 mls @ 15 mls/hr IV .[id number] PRN PRN Reason: Additional IVPB Infusion Influenza Virus Vaccine Quadrival (Flucelvax /Fluzone ) 0.5 ml IM .ONCE ONE Stop: 12/17/19 10:01 Insulin Glargine (Lantus (Bkc)) 30 units SC BID [facility] Last Admin: 12/16/19 22:39 Dose: 30 u Documented by: Insulin Human Lispro (Humalog Kwikpen (Bk)) 0 unit SC TIDAC [facility]; Protocol Lactobacillus Acidophilus (Acidophilus) 2 tablet PO BID [facility] Last Admin: 12/16/19 22:39 Dose: 2 tablet Documented by: Lisinopril (Zestril) 20 mg PO QHS [facility] Last Admin: 12/16/19 22:38 Dose: 20 mg Documented by: Metoprolol Succinate (Toprol Xl (Beta Trino)) 50 mg PO DAILY [facility] Mirabegron (Myrbetriq) 25 mg PO DAILY [facility] Montelukast Sodium (Singulair) 10 mg PO QHS [facility] Last Admin: 12/16/19 22:38 Dose: 10 mg Documented by: Nicotine (Nicoderm Cq (kc)) 14 mg TRANSDERM. DAILY [facility] Last Admin: 12/16/19 22:38 Dose: 14 mg Documented by: Nitroglycerin (Nitrostat) 0.4 mg SUBLINGUAL Q5M PRN PRN Reason: CARDIAC/CHEST PAIN Nystatin (Mycostatin Powder) 1 applic TOPICAL 4X/DAY [facility]; Protocol Last Admin: 12/16/19 22:39 Dose: 1 applicatio Documented by: Ondansetron HCl (Zofran) 4 mg IV Q8H PRN PRN PRN Reason: NAUSEA/VOMITING [facility] () [facility] Pregabalin (Lyrica) 75 mg PO TID [facility] Last Admin: 12/16/19 22:39 Dose: 75 mg Documented by: Promethazine HCl (Phenergan Tablet) 12.5 mg PO BID PRN PRN PRN Reason: NAUSEA Risperidone (Risperdal) 4 mg PO QHS [facility] Last Admin: 12/16/19 22:38 Dose: 4 mg Documented by: Sodium Chloride () 10 - 40 ml IV UD PRN PRN Reason: SALINE FLUSH Last Admin: 12/16/19 22:52 Dose: 10 ml Documented by: Sucralfate (Carafate) 1 gm PO 1HR_ACHS [facility] Last Admin: 12/16/19 22:38 Dose: 1 gm Documented by: Tizanidine HCl (Zanaflex) 6 mg PO TID PRN PRN PRN Reason: SPASMS Last Admin: 12/17/19 01:24 Dose: 6 mg Documented by: Trazodone HCl (Desyrel) 200 mg PO QHS [facility] Last Admin: 12/16/19 22:38 Dose: 200 mg Documented by: Assessment/Plan All Active Problems (Last Reviewed 12/16/19 @ 21:[address] Jese Strauss, DO) Syncope (Acute) Closed left ankle fracture (Acute) Diarrhea (Resolved) Hypokalemia (Resolved) Left trimalleolar ankle fracture Uncontrolled Diabetes Tobacco use Multiple comorbidities Reviewed left ankle xrays and CT scan. The ankle has been closed reduced in the ER. Planning for eventual ORIF of the ankle, however further workup of possible syncopal episode in process. Patient also on anticoagulation - Apixaban and Clopidogel, which have been held starting yesterday evening - ideally from ankle ORIF standpoint would need to be held 5-7 days prior to surgery to minimize bleeding. No weightbearing left foot/ankle, keep foot elevated as much as possible. Keep splint clean, dry and intact. Vitamin D lab pending. Recommend tobacco cessation, and proper glucose control to help healing of ankle fracture. Reviewed increased risks of nonhealing and potential complications given patient's multiple comorbidities, including but not limited to tobacco use and uncontrolled diabetes. We are looking at doing the ankle ORIF on next Friday 12/22 or Saturday 12/23 next week. Patient was asking if she can go home. Patient lives alone and will need to be nonweightbearing and will need to keep foot elevated to help reduce swelling. I do not recommend she goes home due to her current ankle w/ restrictions and overall medical status, rather recommend nursing facility placement if she is discharged from hospital prior to ankle ORIF surgery. Thank you for consultation. Podiatry will continue to follow.
[2019-12-17] MEDS: Pregabalin 75 MG Capsule PO ×3 (06:52→22:38)
[2019-12-17] MEDS: Sucralfate 1 GM Tablet PO ×4 (06:52→22:27)
[2019-12-17] MEDS: Insulin Lispro 100 UNIT/ML INSULN.PEN SC ×4 (06:52→22:29)
[2019-12-17] MEDS: Ipratropium/Albuterol Sulfate 3 ML AMPUL.NEB INHALATION ×3 (07:10→19:27)
[2019-12-17 07:43] LABS: Bedside Glucose 207 mg/dL (70-110)
[2019-12-17] MEDS: predniSONE 20 MG Tablet 40 MG PO (08:01)
[2019-12-17] MEDS: Nystatin Powder 15gm Bottle 1 APPLIC TOPICAL ×4 (09:16→22:29)
[2019-12-17] MEDS: busPIRone 15 MG TABLET 30 MG PO ×2 (09:17→22:27)
[2019-12-17] MEDS: Metoprolol(XL)Succ 50 MG Tablet PO (09:18)
[2019-12-17] MEDS: Escitalopram Oxalate 20 MG Tablet PO (09:18)
[2019-12-17] MEDS: Mirabegron 25 MG TAB.ER.24H PO (09:18)
[2019-12-17] MEDS: amLODIPine 10 MG Tablet PO (09:19)
[2019-12-17] MEDS: HYDROmorphone 0.5 MG/0.5 ML SYRINGE IV ×2 (10:25→19:53)
[2019-12-17 11:30] LABS: Bedside Glucose 329 mg/dL (70-110)
--- NOTE | 2019-12-17 13:22 | CASEMGMT ---
PAMELA ALVAREZ Assessment: Face to Face with patient for initial transition planning/care coordination assessment. PAMELA ALVAREZ introduced self and role at [facility], pt voices understanding and consents to assessment at this time. Pt is sitting up in chair in no distress at this time. Pt is A/Ox4 at this time and answers all questions appropriately at this time. Care providers, pharmacy, and demographics verified at this time. Presentation: Pt felt dizzy and fell, deformity to left ankle Admitting dx: Left trimalleolar fx, syncope PCP: Claudia Specialists: min [place]; reji Reyes; [place], counseling center Preferred Pharmacy: [facility] Insurance: [facility] Prescription Benefit: [facility] Living Will/HPOA: Pt has LW/HPOA and is aware that they are on file at [facility] at this time. Pt states her sister, Jessica Payan, is HPOA. LNOK: Jessica Payan, sister/HPOA; Balbina Tejada, sister Living Arrangements: Pt states lives alone in 1 story apartment and states no concerns at home at this time. Pt states is normally independent with ADL's. Transportation: Pt states drives self and states no transportation concerns at this time. DME/HHC: Pt states has the following DME: walker, rollator, raised toilet seat, shower chair, grab bars, bipap, and 3liters prn and at bedtime thru [employer]. Pt states no need for any further DME at this time. Pt states has had HHC in the past and has been to [facility] in the past. Pt states has an aide 1-2 days/week for four hours at a time thru her insurance. Pt is insistent on going home at discharge even knowing she will be NWB and has a recent hx of falls at home prior to ankle fx. Pt states that her 'disabled neighbor' can help if she needs it. Pt states no concerns with going home at time of discharge. Pt states is on disability. Pt states smokes a pack of cigarettes daily and does not drink ETOH. Pt states no further concerns/needs at this time. CM to follow for PT/OT evals, surgery time, and any further discharge planning/needs. Advised pt to ask for CM if any further questions/concerns/needs arise, voices understanding. Pt Goal: Home Plan: TBD, pending PT/OT evals and surgery time/date. SStradha RN CM
--- NOTE | 2019-12-17 13:32 | PN_ITS ---
<Meseret Delgado BELLHOP CAPTAIN - Last Filed: 12/17/19 13:43> Patient Problems: Active and Suspected Problems (Last Reviewed 12/16/19 @ 21:[address] Jese curry DO) Syncope (Acute) Closed left ankle fracture (Acute) Subjective: Patient seen and examined. Complains of significant left ankle pain. Denies further syncope/near syncope. Denies chest pain, shortness of breath. - Physical Exam Vitals/I&O's: Vital Signs Temp Pulse Resp BP Pulse Ox 98.1 F 65 18 119/55 L 95 12/17/19 08:00 12/17/19 09:18 12/17/19 08:00 12/17/19 09:18 12/17/19 08:09 Oxygen Flow Rate (L/min) [3] 6 Oxygen Flow Rate (L/min) [2] 6 Oxygen Flow Rate (L/min) [1 ( 2 Initial Baseline)] Oxygen Flow Rate (L/min) 3 Oxygen Delivery Method [3] Nasal Cannula Oxygen Delivery Method [2] Nasal Cannula Oxygen Delivery Method [1 ( Nasal Cannula Initial Baseline)] Oxygen Delivery Method Nasal Cannula Weight: 246 lb 14.684 oz Body Mass Index (BMI) 43.7 Finger Stick Blood Glucose 422 Orthostatic Vital Signs Start: 12/17/19 00:52 Freq: q24h Status: Active Protocol: Activity Type Activity Date Activity User E-Sign Co-Sign Detail Recorded Client Recorded Date Recorded By Document 12/16/19 23:30 JC [id number] 12/17/19 00:53 JCG 12/16/19 23:30 Orthostatic Vitals Sitting -Blood Pressure (90/60-120/80) 148/91 H -Extremity Use Left Arm -Pulse Rate (60-100) 60 Lying -Blood Pressure (90/60-120/80) 149/72 H -Extremity Use Left Arm -Pulse Rate (60-100) 57 L Intake and Output for Last 24 Hours 12/15/19 12/16/19 12/17/19 23:59 23:59 23:59 Intake Total 490 / 1240 1852 / 1852 Output Total 1750 / 1750 Balance 490 / 540 102 / 102 General: Alert, Oriented x3, Cooperative HEENT: Atraumatic, PERRLA, EOMI, Normocephalic Neck: Supple, No JVD, Negative Carotid Bruits Lungs: Diminished, Wheezes Cardiovascular: Regular rate, No murmurs Abdomen: Bowel Sounds Present, Soft, Non Tender, Non-Distended Extremities: No clubbing, No cyanosis, No edema, Capillary Refill Less than 3 Seconds Skin: No rashes, No breakdown Musculoskeletal: No Tenderness to Palpation of Joints or Extremities, Tenderness - Left ankle Neurological: Cranial nerves II-XII grossly intact, Neuro grossly intact Psych/Mental Status: Normal Affect, Appropriate Laboratory Results 12/16/19 17:09: WBC 17.2 H, RBC 4.73, Hgb 14.5, Hct 43.1, MCV 91.1, MCH 30.7, MCHC 33.6, RDW Std Deviation 46.5 H, RDW Coeff of Kaycee 13.9, Plt Count 252, MPV 10.4, Immature Gran % (Auto) 0.800, Neut % (Auto) 88.2 H, Lymph % (Auto) 6.4 L, [place] % (Auto) 3.8, Eos % (Auto) 0.2, Baso % (Auto) 0.6, Absolute Neuts (auto) 15.1 H, Absolute Lymphs (auto) 1.10, Nucleated RBC % 0 12/16/19 17:09: Sodium 130 L, Potassium 4.4, Chloride 95 L, Carbon Dioxide 27.0, Anion Gap 8, BUN 13, Creatinine 1.35 H, Estim Creat Clear Calc 39.41, Est GFR (MDRD) Af Amer 53 L, Est GFR (MDRD) Non-Af 43 L, BUN/Creatinine Ratio 9.6 L, Glucose 343 H, Calcium 9.3, Troponin I < 0.015 12/16/19 21:47: POC Glucose 447 H 12/16/19 22:15: Troponin I < 0.015 12/16/19 23:35: Urine Color Yellow, Urine Clarity Clear, Urine pH 6.5, Ur Specific [place] 1.010, Urine Protein Negative, Urine Glucose (UA) 1000 H, Urine Ketones Negative, Urine Occult Blood 10 H, Urine Nitrite Negative, Urine Bilirubin Negative, Urine Urobilinogen Normal, Ur Leukocyte Esterase 500 H, Urine RBC 0-5 SEEN, Urine WBC 10-25 SEEN, Ur Squamous Epith Cells 0-5 SEEN, Urine Bacteria 0 SEEN, Urine Mucus 0 SEEN 12/17/19 05:26: Troponin I < 0.015 12/17/19 05:26: WBC 14.4 H, RBC 4.27, Hgb 13.1, Hct 39.5, MCV 92.5, MCH 30.7, MCHC 33.2, RDW Std Deviation 48.0 H, RDW Coeff of Kaycee 14.2, Plt Count 197, MPV 9.8, Immature Gran % (Auto) 0.300, Neut % (Auto) 75.9 H, Lymph % (Auto) 15.0 L, [place] % (Auto) 7.4, Eos % (Auto) 0.8, Baso % (Auto) 0.6, Absolute Neuts (auto) 11.0 H, Absolute Lymphs (auto) 2.17, Nucleated RBC % 0 12/17/19 05:26: Sodium 135 L, Potassium 3.7, Chloride 101, Carbon Dioxide 30.0, Anion Gap 4 L, BUN 10, Creatinine 0.73, Estim Creat Clear Calc 72.88, Est GFR (MDRD) Af Amer 106, Est GFR (MDRD) Non-Af 88, BUN/Creatinine Ratio 13.7, Glucose 187 H, Calcium 8.8 12/17/19 06:49: POC Glucose 207 H 12/17/19 11:21: POC Glucose 329 H Current Medications Albuterol Sulfate (Ventolin Aerosols) 2.5 mg INHALATION Q4H PRN PRN PRN Reason: Sob &/Or Wheezing Albuterol/Ipratropium (Duoneb) 3 ml INHALATION Q6HWA.RT [facility] Last Admin: 12/17/19 13:17 Dose: 3 ml Documented by: Amlodipine Besylate (Norvasc) 10 mg PO DAILY [facility] Last Admin: 12/17/19 09:19 Dose: 10 mg Documented by: Atorvastatin Calcium (Lipitor) 80 mg PO QHS [facility] Last Admin: 12/16/19 22:38 Dose: 80 mg Documented by: Buspirone HCl (Buspar) 30 mg PO BID [facility] Last Admin: 12/17/19 09:17 Dose: 30 mg Documented by: Dextrose (D50w Syringe) 0 gm IV X1 PRN; Protocol PRN Reason: Hypoglycemia Escitalopram Oxalate (Lexapro) 20 mg PO DAILY [facility] Last Admin: 12/17/19 09:18 Dose: 20 mg Documented by: Glucagon () 1 mg IM .X1 PRN PRN Reason: Hypoglycemia Hydromorphone HCl (Dilaudid Tablet) 2 mg PO Q3H PRN PRN PRN Reason: Pain Score 4-5 Hydromorphone HCl (Dilaudid Tablet) 4 mg PO Q3H PRN PRN Reason: Pain Score 6-10 Last Admin: 12/17/19 06:52 Dose: 4 mg Documented by: Hydromorphone HCl (Dilaudid Inj) 0.5 mg IV Q4H PRN PRN PRN Reason: Pain Score 4-10 Last Admin: 12/17/19 10:25 Dose: 0.5 mg Documented by: Sodium Chloride () 250 mls @ 15 mls/hr IV .[id number] PRN PRN Reason: Saline Flush Sodium Chloride () 250 mls @ 15 mls/hr IV .[id number] PRN PRN Reason: Additional IVPB Infusion Insulin Glargine (Lantus (Bk)) 30 units SC BID [facility] Last Admin: 12/17/19 09:17 Dose: 30 u Documented by: Insulin Human Lispro (Humalog Kwikpen ([facility])) 0 unit SC TIDAC [facility]; Protocol Last Admin: 12/17/19 11:22 Dose: 5 u Documented by: Lactobacillus Acidophilus (Acidophilus) 2 tablet PO BID [facility] Last Admin: 12/17/19 09:17 Dose: 2 tablet Documented by: Lisinopril (Zestril) 20 mg PO QHS [facility] Last Admin: 12/16/19 22:38 Dose: 20 mg Documented by: Metoprolol Succinate (Toprol Xl (Beta Trino)) 50 mg PO DAILY [facility] Last Admin: 12/17/19 09:18 Dose: 50 mg Documented by: Mirabegron (Myrbetriq) 25 mg PO DAILY [facility] Last Admin: 12/17/19 09:18 Dose: 25 mg Documented by: Montelukast Sodium (Singulair) 10 mg PO QHS [facility] Last Admin: 12/16/19 22:38 Dose: 10 mg Documented by: Nicotine (Nicoderm Cq (Pb)) 14 mg TRANSDERM. DAILY [facility] Last Admin: 12/17/19 10:22 Dose: 14 mg Documented by: Nitroglycerin (Nitrostat) 0.4 mg SUBLINGUAL Q5M PRN PRN Reason: CARDIAC/CHEST PAIN Nystatin (Mycostatin Powder) 1 applic TOPICAL 4X/DAY [facility]; Protocol Last Admin: 12/17/19 09:16 Dose: 1 applicatio Documented by: Ondansetron HCl (Zofran) 4 mg IV Q8H PRN PRN PRN Reason: NAUSEA/VOMITING Prednisone () 40 mg PO DAILYCM [facility] Last Admin: 12/17/19 08:01 Dose: 40 mg Documented by: Pregabalin (Lyrica) 75 mg PO TID [facility] Last Admin: 12/17/19 06:52 Dose: 75 mg Documented by: Promethazine HCl (Phenergan Tablet) 12.5 mg PO BID PRN PRN PRN Reason: NAUSEA Risperidone (Risperdal) 4 mg PO QHS [facility] Last Admin: 12/16/19 22:38 Dose: 4 mg Documented by: Sodium Chloride () 10 - 40 ml IV UD PRN PRN Reason: SALINE FLUSH Last Admin: 12/16/19 22:52 Dose: 10 ml Documented by: Sucralfate (Carafate) 1 gm PO 1HR_ACHS [facility] Last Admin: 12/17/19 11:22 Dose: 1 gm Documented by: Tizanidine HCl (Zanaflex) 6 mg PO TID PRN PRN PRN Reason: SPASMS Last Admin: 12/17/19 08:00 Dose: 6 mg Documented by: Trazodone HCl (Desyrel) 200 mg PO QHS [facility] Last Admin: 12/16/19 22:38 Dose: 200 mg Documented by: Medical Necessity - Tobacco Use Smoking Status: Heavy Smoker (>10/day) Tobacco Use: Cigarettes Assessment/Plan All Active Problems (Last Reviewed 12/16/19 @ 21:[address] Jese Strauss, DO) Syncope (Acute) Closed left ankle fracture (Acute) Diarrhea (Resolved) Hypokalemia (Resolved) 1. Acute traumatic left trimalleolar fracture-secondary to fall prior to admission. Podiatry following. Eventual ORIF. Eliquis and Plavix on hold and will need to be held 5 to 7 days prior to surgery. PT/OT. As needed pain regimen. Nonweightbearing left lower extremity. Keep splint intact. 2. Syncope-patient suspects she passed out following ankle fracture with fall. Troponin negative. Echocardiogram demonstrates an EF of 60%. Brain CT unremarkable. 3. Acute kidney injury-resolved with IV fluids. Lasix held. 4. Chronic COPD with chronic hypoxic respiratory failure- Patient wears supplemental oxygen with exertion only. Continue supplement oxygen to maintain O2 at or above 90%. Follows with Dr. Willoughby, pulmonary medicine. 5. CAD status post PCI x5-on Eliquis, Plavix, statin, lisinopril, metoprolol. Eliquis and Plavix on hold as noted above. 6. History of PE-on Eliquis, held. 7. History of peptic ulcer disease/GERD-continue omeprazole regimen. 8. Chronic pain syndrome-continue home Lyrica, tizanidine regimen. PRN pain regimen. 9. Hypertension-continue amlodipine, lisinopril, metoprolol. Lasix on hold. 10. Hyperlipidemia-continue statin regimen. 11. Iron deficiency anemia-stable, trend CBC. 12. Tobacco dependence-encourage cessation. 13. Schizophrenia/anxiety/depression-continue home BuSpar, Cymbalta, Risperdal and trazodone regimen. 14. RACHEL-continue CPAP nightly. 15. Type 2 diabetes mellitus, poorly controlled-hemoglobin A1c August 2019 10.8%. Continue home Lantus regimen with sliding scale insulin. DVT prophylaxis-Eliquis on hold. This patient was seen by ERROL Lunsford under the supervision of Dr. Talavera. <Jovani Talavera - Last Filed: 12/17/19 15:19> Objective: Patient was admitted for fracture of left trimalleolar ankle. She said her left foot felt weak and crack while she was walking to the kitchen and suddenly she fell down. She is not clear whether she had syncope but when she woke up she was surrounded by the caregiver. Heart rate and blood pressure controlled. Patient states she has history of coronary artery disease and has 7 stents. Physical exam General: Alert, Oriented x3, Cooperative HEENT: Atraumatic, PERRLA, EOMI, Normocephalic Oral: No Gingival or Mucosal Lesions/ Ulcerations Neck: Supple, No JVD, Negative Carotid Bruits Lungs: Air entry diminished in bilateral lung bases. No crepitation/rhonchi Cardiovascular: Regular rate, Regular Rhythm, Normal S1, Normal S2, No murmurs Abdomen: Bowel Sounds Present, Soft, Non Tender, Non-Distended : No renal angle tenderness. No suprapubic tenderness. Extremities: No edema, Capillary Refill Less than 3 Seconds Skin: No rashes, No breakdown Musculoskeletal: Tenderness and deformity of left ankle. Left below-knee cast. Neurological: Cranial nerves II-XII grossly intact, Deep Tendon Reflexes 2+/4 and Symmetrical, Neuro grossly intact Psych/Mental Status: Normal Affect, Appropriate. - Physical Exam Vitals/I&O's: Vital Signs Temp Pulse Resp BP Pulse Ox 98.0 F 60 18 134/70 H 93 12/17/19 14:00 12/17/19 14:00 12/17/19 14:00 12/17/19 14:00 12/17/19 14:00 Oxygen Flow Rate (L/min) [3] 6 Oxygen Flow Rate (L/min) [2] 6 Oxygen Flow Rate (L/min) [1 ( 2 Initial Baseline)] Oxygen Flow Rate (L/min) 3 Oxygen Delivery Method [3] Nasal Cannula Oxygen Delivery Method [2] Nasal Cannula Oxygen Delivery Method [1 ( Nasal Cannula Initial Baseline)] Oxygen Delivery Method Nasal Cannula Weight: 246 lb 14.684 oz Body Mass Index (BMI) 43.7 Finger Stick Blood Glucose 422 Orthostatic Vital Signs Start: 12/17/19 00:52 Freq: q24h Status: Active Protocol: Activity Type Activity Date Activity User E-Sign Co-Sign Detail Recorded Client Recorded Date Recorded By Document 12/16/19 23:30 [facility] [place] [id number] 12/17/19 00:53 [facility] [place] 12/16/19 23:30 Orthostatic Vitals Sitting -Blood Pressure (90/60-120/80 mm Hg) 148/91 H -Extremity Use Left Arm -Pulse Rate (60-100 beats/min) 60 Lying -Blood Pressure (90/60-120/80 mm Hg) 149/72 H -Extremity Use Left Arm -Pulse Rate (60-100 beats/min) 57 L Intake and Output for Last 24 Hours 12/15/19 12/16/19 12/17/19 23:59 23:59 23:59 Intake Total 490 / 1240 2212 / 2212 Output Total 2049 / 2049 Balance 490 / 540 162 / 162 Laboratory Results 12/16/19 17:09: WBC 17.2 H, RBC 4.73, Hgb 14.5, Hct 43.1, MCV 91.1, MCH 30.7, MCHC 33.6, RDW Std Deviation 46.5 H, RDW Coeff of Kaycee 13.9, Plt Count 252, MPV 10.4, Immature Gran % (Auto) 0.800, Neut % (Auto) 88.2 H, Lymph % (Auto) 6.4 L, [place] % (Auto) 3.8, Eos % (Auto) 0.2, Baso % (Auto) 0.6, Absolute Neuts (auto) 15.1 H, Absolute Lymphs (auto) 1.10, Nucleated RBC % 0 12/16/19 17:09: Sodium 130 L, Potassium 4.4, Chloride 95 L, Carbon Dioxide 27.0, Anion Gap 8, BUN 13, Creatinine 1.35 H, Estim Creat Clear Calc 39.41, Est GFR (MDRD) Af Amer 53 L, Est GFR (MDRD) Non-Af 43 L, BUN/Creatinine Ratio 9.6 L, Glucose 343 H, Calcium 9.3, Troponin I < 0.015 12/16/19 21:47: POC Glucose 447 H 12/16/19 22:15: Troponin I < 0.015 12/16/19 23:35: Urine Color Yellow, Urine Clarity Clear, Urine pH 6.5, Ur Specific [place] 1.010, Urine Protein Negative, Urine Glucose (UA) 1000 H, Urine Ketones Negative, Urine Occult Blood 10 H, Urine Nitrite Negative, Urine Bilirubin Negative, Urine Urobilinogen Normal, Ur Leukocyte Esterase 500 H, Urine RBC 0-5 SEEN, Urine WBC 10-25 SEEN, Ur Squamous Epith Cells 0-5 SEEN, Urine Bacteria 0 SEEN, Urine Mucus 0 SEEN 12/17/19 05:26: Troponin I < 0.015 12/17/19 05:26: WBC 14.4 H, RBC 4.27, Hgb 13.1, Hct 39.5, MCV 92.5, MCH 30.7, MCHC 33.2, RDW Std Deviation 48.0 H, RDW Coeff of Kaycee 14.2, Plt Count 197, MPV 9.8, Immature Gran % (Auto) 0.300, Neut % (Auto) 75.9 H, Lymph % (Auto) 15.0 L, [place] % (Auto) 7.4, Eos % (Auto) 0.8, Baso % (Auto) 0.6, Absolute Neuts (auto) 11.0 H, Absolute Lymphs (auto) 2.17, Nucleated RBC % 0 12/17/19 05:26: Sodium 135 L, Potassium 3.7, Chloride 101, Carbon Dioxide 30.0, Anion Gap 4 L, BUN 10, Creatinine 0.73, Estim Creat Clear Calc 72.88, Est GFR (MDRD) Af Amer 106, Est GFR (MDRD) Non-Af 88, BUN/Creatinine Ratio 13.7, Glucose 187 H, Calcium 8.8 12/17/19 06:49: POC Glucose 207 H 12/17/19 11:21: POC Glucose 329 H Current Medications Albuterol Sulfate (Ventolin Aerosols) 2.5 mg INHALATION Q4H PRN PRN PRN Reason: Sob &/Or Wheezing Albuterol/Ipratropium (Duoneb) 3 ml INHALATION Q6HWA.RT [facility] Last Admin: 12/17/19 13:17 Dose: 3 ml Documented by: Amlodipine Besylate (Norvasc) 10 mg PO DAILY [facility] Last Admin: 12/17/19 09:19 Dose: 10 mg Documented by: Atorvastatin Calcium (Lipitor) 80 mg PO QHS [facility] Last Admin: 12/16/19 22:38 Dose: 80 mg Documented by: Buspirone HCl (Buspar) 30 mg PO BID [facility] Last Admin: 12/17/19 09:17 Dose: 30 mg Documented by: Dextrose (D50w Syringe) 0 gm IV X1 PRN; Protocol PRN Reason: Hypoglycemia Escitalopram Oxalate (Lexapro) 20 mg PO DAILY [facility] Last Admin: 12/17/19 09:18 Dose: 20 mg Documented by: Glucagon () 1 mg IM .X1 PRN PRN Reason: Hypoglycemia Hydromorphone HCl (Dilaudid Tablet) 2 mg PO Q3H PRN PRN PRN Reason: Pain Score 4-5 Hydromorphone HCl (Dilaudid Tablet) 4 mg PO Q3H PRN PRN Reason: Pain Score 6-10 Last Admin: 12/17/19 13:46 Dose: 4 mg Documented by: Hydromorphone HCl (Dilaudid Inj) 0.5 mg IV Q4H PRN PRN PRN Reason: Pain Score 4-10 Last Admin: 12/17/19 10:25 Dose: 0.5 mg Documented by: Sodium Chloride () 250 mls @ 15 mls/hr IV .[id number] PRN PRN Reason: Saline Flush Sodium Chloride () 250 mls @ 15 mls/hr IV .[id number] PRN PRN Reason: Additional IVPB Infusion Insulin Glargine (Lantus ([facility])) 30 units SC BID [facility] Last Admin: 12/17/19 09:17 Dose: 30 u Documented by: Insulin Human Lispro (Humalog Kwikpen ([facility])) 0 unit SC TIDAC [facility]; Protocol Last Admin: 12/17/19 11:22 Dose: 5 u Documented by: Lactobacillus Acidophilus (Acidophilus) 2 tablet PO BID [facility] Last Admin: 12/17/19 09:17 Dose: 2 tablet Documented by: Lisinopril (Zestril) 20 mg PO QHS [facility] Last Admin: 12/16/19 22:38 Dose: 20 mg Documented by: Metoprolol Succinate (Toprol Xl (Beta Trino)) 50 mg PO DAILY [facility] Last Admin: 12/17/19 09:18 Dose: 50 mg Documented by: Mirabegron (Myrbetriq) 25 mg PO DAILY [facility] Last Admin: 12/17/19 09:18 Dose: 25 mg Documented by: Montelukast Sodium (Singulair) 10 mg PO QHS [facility] Last Admin: 12/16/19 22:38 Dose: 10 mg Documented by: Nicotine (Nicoderm Cq (Pbkc)) 14 mg TRANSDERM. DAILY [facility] Last Admin: 12/17/19 10:22 Dose: 14 mg Documented by: Nitroglycerin (Nitrostat) 0.4 mg SUBLINGUAL Q5M PRN PRN Reason: CARDIAC/CHEST PAIN Nystatin (Mycostatin Powder) 1 applic TOPICAL 4X/DAY [facility]; Protocol Last Admin: 12/17/19 13:46 Dose: 1 applicatio Documented by: Ondansetron HCl (Zofran) 4 mg IV Q8H PRN PRN PRN Reason: NAUSEA/VOMITING [facility] Last Admin: 12/17/19 08:01 Dose: 40 mg Documented by: Pregabalin (Lyrica) 75 mg PO TID [facility] Last Admin: 12/17/19 13:46 Dose: 75 mg Documented by: Promethazine HCl (Phenergan Tablet) 12.5 mg PO BID PRN PRN PRN Reason: NAUSEA Risperidone (Risperdal) 4 mg PO QHS [facility] Last Admin: 12/16/19 22:38 Dose: 4 mg Documented by: Sodium Chloride () 10 - 40 ml IV UD PRN PRN Reason: SALINE FLUSH Last Admin: 12/16/19 22:52 Dose: 10 ml Documented by: Sucralfate (Carafate) 1 gm PO 1HR_ACHS [facility] Last Admin: 12/17/19 11:22 Dose: 1 gm Documented by: Tizanidine HCl (Zanaflex) 6 mg PO TID PRN PRN PRN Reason: SPASMS Last Admin: 12/17/19 08:00 Dose: 6 mg Documented by: Trazodone HCl (Desyrel) 200 mg PO QHS [facility] Last Admin: 12/16/19 22:38 Dose: 200 mg Documented by: Assessment/Plan This patient was seen in conjunction with Meseret DOSHI. I have independently interviewed and examined the patient and reviewed pertinent history, examination findings, laboratory and plan of management. I have reviewed the note and agree with the documented findings with the few additional points. In brief, patient is admitted for acute traumatic left trimalleolar fracture prior to admission. Patient has below-knee cast. Patient home Eliquis and Plavix on hold. Pipe Fitter Helper note reviewed. Plavix and Eliquis need to be in 5 to 7 days prior to surgery. Syncope, exact mechanism and etiology unclear. Is not clear whether resulted after she fell down when she had left ankle fracture. She might have osteoporosis as she fell less than standing height. 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 Other chronic comorbidities include coronary artery status post PCI, COPD, PE on Eliquis, chronic peptic ulcer disease/GERD, hypertension, dyslipidemia, chronic iron versus anemia and nicotine use. Patient also has schizophrenia, anxiety and depression and obstructive sleep apnea. Diabetes mellitus type 2, uncontrolled : Glucose are elevated between 200-350. Lantus and Humalog insulin uptitrated. I have discussed my assessment with Meseret DOSHI and orders have been reviewed. Inpatient E&M: 68021 Subs Hosp L2
[2019-12-17] MEDS: Insulin Lispro 100 UNIT/ML INSULN.PEN 15 UNIT SC (17:04)
[2019-12-17 17:10] LABS: Bedside Glucose 409 mg/dL (70-110)
--- NOTE | 2019-12-17 19:24 | PCM.HOSP.N ---
Hospitalist Note DW Dr. iMtchell. No surgery until 12/22 due to the clopidogrel. Will restart apixaban, but will need to hold starting 12/20 for the surgery on the .
[2019-12-17] MEDS: Atorvastatin Calcium 80 MG Tablet PO (22:26)
[2019-12-17] MEDS: traZODone 100 MG Tablet 200 MG PO (22:26)
[2019-12-17] MEDS: Lisinopril 20 MG Tablet PO (22:26)
[2019-12-17] MEDS: Montelukast 10 MG Tablet PO (22:26)
[2019-12-17] MEDS: APIXABAN 5 MG TABLET PO (22:27)
[2019-12-17] MEDS: RisperiDONE 2 MG Tablet 4 MG PO (22:27)
[2019-12-17 22:41] LABS: Bedside Glucose 247 mg/dL (70-110)
[2019-12-18] VITALS (9 sets, daily range): BP systolic 108–128; BP diastolic 50–63; PULSE 54–86; RESP 16–18; TEMP 36.6–36.8; O2SAT 94–96
[2019-12-18] MEDS: HYDROmorphone 2 MG TABLET 4 MG PO ×4 (02:34→17:50)
[2019-12-18 05:23] LABS: Hematocrit 40.1 % (37-47); Mean Corp Hgb Conc 32.4 g/dL (32-36); Mean Corpuscular Hgb 30.6 pg (27.0-32.0); Mean Corpuscular Volume 94.4 fL (81-99); Mean Platelet Vol. 10.2 fl (6.2-12.0); Platelet Count 198 K/mm3 (150-450); RBC Distribution Width CV 14.2 % (11.6-14.6); RBC Distribution Width SD 49.1 fl (35.1-43.9); Red Blood Count 4.25 M/mm3 (4.2-5.4); White Blood Count 14.1 K/mm3 (4.4-11.0)
[2019-12-18 05:39] LABS: Anion Gap 3 (5-15); BUN 9 mg/dL (7-18); BUN/Creat Ratio 13.8 RATIO (10-20); Calcium,Total 9.2 mg/dL (8.5-10.1); Chloride 102 mmol/L (98-107); Creatinine, Serum 0.65 mg/dL (0.55-1.02); EST Glomerular Filtration Rate 100 mL/min (>60); Est Glom Filt Rate - Afr Amer 121 mL/min (>60); Estimated Creatinine Clearance 81.85 ml/min; Glucose 149 mg/dL (74-106); Potassium 3.6 mmol/L (3.5-5.1); Sodium Level 136 mmol/L (136-145)
[2019-12-18] MEDS: Pregabalin 75 MG Capsule PO ×2 (05:56→14:40)
[2019-12-18] MEDS: tiZANidine HCl 2 MG Tablet 6 MG PO ×2 (05:59→14:37)
[2019-12-18] MEDS: Sucralfate 1 GM Tablet PO ×3 (06:00→16:13)
[2019-12-18] MEDS: Ipratropium/Albuterol Sulfate 3 ML AMPUL.NEB INHALATION ×3 (06:43→18:51)
[2019-12-18 07:46] LABS: Bedside Glucose 225 mg/dL (70-110)
[2019-12-18 08:16] LABS: Hemoglobin A1c 11.4 % (3.8-5.6)
[2019-12-18] MEDS: Insulin Lispro 100 UNIT/ML INSULN.PEN 15 UNIT SC ×2 (08:42→16:12)
[2019-12-18] MEDS: Insulin Lispro 100 UNIT/ML INSULN.PEN SC ×2 (08:43→16:13)
[2019-12-18 08:44] LABS: Vitamin D,25 Hydroxy 28.8 ng/mL
[2019-12-18] MEDS: busPIRone 15 MG TABLET 30 MG PO (08:46)
[2019-12-18] MEDS: Escitalopram Oxalate 20 MG Tablet PO (08:46)
[2019-12-18] MEDS: predniSONE 20 MG Tablet 40 MG PO (08:46)
[2019-12-18] MEDS: Mirabegron 25 MG TAB.ER.24H PO (08:47)
[2019-12-18] MEDS: APIXABAN 5 MG TABLET PO (10:22)
[2019-12-18] MEDS: amLODIPine 10 MG Tablet PO (10:26)
[2019-12-18] MEDS: Metoprolol(XL)Succ 50 MG Tablet PO (10:27)
--- NOTE | 2019-12-18 10:56 | CASEMGMT ---
Per physician patient agreed to go to TCU. MAURO spoke with Susan on [facility] referral phone and TCU has beds. SW asked if she could start the pre-cert. SW called patient's insurance and days 1-20 are covered at 100% and days 21-100 there is a $178 daily co-pay. SW met with patient. Introduced self and role at [facility]. Patient confirmed she is in agreement with TCU. SW explained that she will stay here until her insurance approves and then she would move to TCU. SW explained she will be in quarantine for 14 days and if she is still there after that they are arranging visitation inside. SW also told her that if she has to be in TCU for more than 20 days she will have to go to another assisted as [facility] TCU does not accept Medicaid. She verbalized understanding. She asked if she could smoke, MAURO told her she would not be able to smoke. She said the nicotine patch is not helping. MAURO told her SW will say something to the physician or EPIDEMIOLOGY INTERN to see if they can prescribe something stronger. MAURO did talk with EPIDEMIOLOGY INTERN Meseret Ramires and she will prescribe a stronger patch and also order gum. Plan: [facility] TCU pending insurance approval. Aliya STUBBS MSW
[2019-12-18 11:45] LABS: Bedside Glucose 100 mg/dL (70-110)
--- NOTE | 2019-12-18 11:58 | PCM.PROGNOTE ---
Patient Problems: Active and Suspected Problems (Last Reviewed 12/16/19 @ 21:[address] Jese Strauss, DO) Syncope (Acute) Closed left ankle fracture (Acute) Subjective: Patient seen and examined. Pain controlled at this time. Agreeable to TCU at discharge pending upcoming surgery and for rehab postoperatively. - Physical Exam Vitals/I&O's: Vital Signs Temp Pulse Resp BP Pulse Ox 98.2 F 58 L 16 108/50 L 94 12/18/19 08:51 12/18/19 10:27 12/18/19 08:51 12/18/19 08:51 12/18/19 08:51 Oxygen Flow Rate (L/min) [3] 6 Oxygen Flow Rate (L/min) [2] 6 Oxygen Flow Rate (L/min) [1 ( 2 Initial Baseline)] Oxygen Flow Rate (L/min) 3.5 Oxygen Delivery Method [3] Nasal Cannula Oxygen Delivery Method [2] Nasal Cannula Oxygen Delivery Method [1 ( Nasal Cannula Initial Baseline)] Oxygen Delivery Method Nasal Cannula Weight: 246 lb 14.684 oz Body Mass Index (BMI) 43.7 Finger Stick Blood Glucose 422 Orthostatic Vital Signs Start: 12/17/19 00:52 Freq: q24h Status: Active Protocol: Activity Type Activity Date Activity User E-Sign Co-Sign Detail Recorded Client Recorded Date Recorded By Document 12/16/19 23:30 [facility] [id number] 12/17/19 00:53 JCG 12/16/19 23:30 Orthostatic Vitals Sitting -Blood Pressure (90/60-120/80) 148/91 H -Extremity Use Left Arm -Pulse Rate (60-100) 60 Lying -Blood Pressure (90/60-120/80) 149/72 H -Extremity Use Left Arm -Pulse Rate (60-100) 57 L Intake and Output for Last 24 Hours 12/16/19 12/17/19 12/18/19 23:59 23:59 23:59 Intake Total 490 / 1240 2932 / 2932 350 / 350 Output Total 3375 / 3375 625 / 625 Balance 490 / 540 -443 / -443 -275 / -275 General: Alert, Oriented x3, Cooperative HEENT: Atraumatic, PERRLA, EOMI, Normocephalic Neck: Supple, No JVD, Negative Carotid Bruits Lungs: Diminished, Wheezes Cardiovascular: Regular rate, No murmurs Abdomen: Bowel Sounds Present, Soft, Non Tender, Non-Distended Extremities: No clubbing, No cyanosis, No edema, Capillary Refill Less than 3 Seconds Skin: No rashes, No breakdown Musculoskeletal: No Tenderness to Palpation of Joints or Extremities, - - Left ankle brace in place Neurological: Cranial nerves II-XII grossly intact, Neuro grossly intact Psych/Mental Status: Normal Affect, Appropriate Laboratory Results 12/17/19 17:03: POC Glucose 409 H 12/17/19 22:20: POC Glucose 247 H 12/18/19 05:00: WBC 14.1 H, RBC 4.25, Hgb 13.0, Hct 40.1, MCV 94.4, MCH 30.6, MCHC 32.4, RDW Std Deviation 49.1 H, RDW Coeff of Kaycee 14.2, Plt Count 198, MPV 10.2 12/18/19 05:00: Sodium 136, Potassium 3.6, Chloride 102, Carbon Dioxide 31.0, Anion Gap 3 L, BUN 9, Creatinine 0.65, Estim Creat Clear Calc 81.85, Est GFR (MDRD) Af Amer 121, Est GFR (MDRD) Non-Af 100, BUN/Creatinine Ratio 13.8, Glucose 149 H, Calcium 9.2 12/18/19 05:00: Hemoglobin A1c 11.4 H 12/18/19 05:00: Vitamin D 25-Hydroxy 28.8 12/18/19 07:37: POC Glucose 225 H 12/18/19 11:39: POC Glucose 100 Current Medications Albuterol Sulfate (Ventolin Aerosols) 2.5 mg INHALATION Q4H PRN PRN PRN Reason: Sob &/Or Wheezing Albuterol/Ipratropium (Duoneb) 3 ml INHALATION Q6HWA.RT [facility] Last Admin: 12/18/19 06:43 Dose: 3 ml Documented by: Amlodipine Besylate (Norvasc) 10 mg PO DAILY [facility] Last Admin: 12/18/19 10:26 Dose: 10 mg Documented by: Apixaban (Apixaban 5 Mg Tablet) 5 mg PO BID [facility] Last Admin: 12/18/19 10:22 Dose: 5 mg Documented by: Atorvastatin Calcium (Lipitor) 80 mg PO QHS [facility] Last Admin: 12/17/19 22:26 Dose: 80 mg Documented by: Buspirone HCl (Buspar) 30 mg PO BID [facility] Last Admin: 12/18/19 08:46 Dose: 30 mg Documented by: Dextrose (D50w Syringe) 0 gm IV X1 PRN; Protocol PRN Reason: Hypoglycemia Escitalopram Oxalate (Lexapro) 20 mg PO DAILY [facility] Last Admin: 12/18/19 08:46 Dose: 20 mg Documented by: Glucagon () 1 mg IM .X1 PRN PRN Reason: Hypoglycemia Hydromorphone HCl (Dilaudid Tablet) 2 mg PO Q3H PRN PRN PRN Reason: Pain Score 4-5 Hydromorphone HCl (Dilaudid Tablet) 4 mg PO Q3H PRN PRN Reason: Pain Score 6-10 Last Admin: 12/18/19 09:31 Dose: 4 mg Documented by: Hydromorphone HCl (Dilaudid Inj) 0.5 mg IV Q4H PRN PRN PRN Reason: Pain Score 4-10 Last Admin: 12/17/19 19:53 Dose: 0.5 mg Documented by: Sodium Chloride () 250 mls @ 15 mls/hr IV .[id number] PRN PRN Reason: Saline Flush Sodium Chloride () 250 mls @ 15 mls/hr IV .[id number] PRN PRN Reason: Additional IVPB Infusion Insulin Glargine (Insulin Glargine 100 Units/Ml Pen) 40 units SC BID [facility] Last Admin: 12/18/19 10:25 Dose: 40 units Documented by: Insulin Human Lispro (Insulin Lispro 100 Unit/Ml Insuln.Pen) 15 unit SC TIDAC [facility] Last Admin: 12/18/19 08:42 Dose: 15 units Documented by: Insulin Human Lispro (Insulin Lispro 100 Unit/Ml Insuln.Pen) 0 unit SC ACHS [facility]; Protocol Last Admin: 12/18/19 08:43 Dose: 2 units Documented by: Lactobacillus Acidophilus (Acidophilus) 2 tablet PO BID [facility] Last Admin: 12/18/19 10:25 Dose: 2 tablet Documented by: Lisinopril (Zestril) 20 mg PO QHS [facility] Last Admin: 12/17/19 22:26 Dose: 20 mg Documented by: Metoprolol Succinate (Toprol Xl (Beta Trino)) 50 mg PO DAILY [facility] Last Admin: 12/18/19 10:27 Dose: 50 mg Documented by: Mirabegron (Myrbetriq) 25 mg PO DAILY [facility] Last Admin: 12/18/19 08:47 Dose: 25 mg Documented by: Montelukast Sodium (Singulair) 10 mg PO QHS [facility] Last Admin: 12/17/19 22:26 Dose: 10 mg Documented by: Nicotine (Nicotine 21 Mg Patch) 21 mg TRANSDERM. DAILY [facility] Nitroglycerin (Nitrostat) 0.4 mg SUBLINGUAL Q5M PRN PRN Reason: CARDIAC/CHEST PAIN Nystatin (Mycostatin Powder) 1 applic TOPICAL 4X/DAY [facility]; Protocol Last Admin: 12/18/19 10:37 Dose: Not Given Documented by: Ondansetron HCl (Zofran) 4 mg IV Q8H PRN PRN PRN Reason: NAUSEA/VOMITING [facility] () [facility] Last Admin: 12/18/19 08:46 Dose: 40 mg Documented by: Pregabalin (Lyrica) 75 mg PO TID [facility] Last Admin: 12/18/19 05:56 Dose: 75 mg Documented by: Promethazine HCl (Phenergan Tablet) 12.5 mg PO BID PRN PRN PRN Reason: NAUSEA Risperidone (Risperdal) 4 mg PO QHS [facility] Last Admin: 12/17/19 22:27 Dose: 4 mg Documented by: Sodium Chloride () 10 - 40 ml IV UD PRN PRN Reason: SALINE FLUSH Last Admin: 12/16/19 22:52 Dose: 10 ml Documented by: Sucralfate (Carafate) 1 gm PO 1HR_ACHS [facility] Last Admin: 12/18/19 10:27 Dose: 1 gm Documented by: Tizanidine HCl (Zanaflex) 6 mg PO TID PRN PRN PRN Reason: SPASMS Last Admin: 12/18/19 05:59 Dose: 6 mg Documented by: Trazodone HCl (Desyrel) 200 mg PO QHS [facility] Last Admin: 12/17/19 22:26 Dose: 200 mg Documented by: Medical Necessity - Tobacco Use Smoking Status: Heavy Smoker (>10/day) Tobacco Use: Cigarettes Assessment/Plan All Active Problems (Last Reviewed 12/16/19 @ 21:[address] Jese Strauss, DO) Syncope (Acute) Closed left ankle fracture (Acute) Diarrhea (Resolved) Hypokalemia (Resolved) 1. Acute traumatic left trimalleolar fracture-secondary to fall prior to admission. Podiatry following. Plan for ORIF 12/22 due to being on Plavix. Continue to hold Plavix. Eliquis restarted, will need to hold beginning 12/21/2019 prior to surgery. PT/OT. As needed pain regimen. Nonweightbearing left lower extremity. Keep splint intact. TCU pending acceptance for rehab. 2. Syncope-patient suspects she passed out following ankle fracture with fall. Troponin negative. Echocardiogram demonstrates an EF of 60%. Brain CT unremarkable. 3. Acute kidney injury-resolved with IV fluids. Resume home low-dose Lasix. 4. Chronic COPD with chronic hypoxic respiratory failure- Patient wears supplemental oxygen with exertion only. Continue supplement oxygen to maintain O2 at or above 90%. Follows with Dr. Willoughby, pulmonary medicine. 5. CAD status post PCI x5-on Eliquis, Plavix, statin, lisinopril, metoprolol. Plavix on hold as noted above. 6. History of PE-on Eliquis. 7. History of peptic ulcer disease/GERD-continue omeprazole regimen. 8. Chronic pain syndrome-continue home Lyrica, tizanidine regimen. PRN pain regimen. 9. Hypertension-continue amlodipine, lisinopril, metoprolol. Lasix on hold. 10. Hyperlipidemia-continue statin regimen. 11. Iron deficiency anemia-stable, trend CBC. 12. Tobacco dependence-encourage cessation. 13. Schizophrenia/anxiety/depression-continue home BuSpar, Cymbalta, Risperdal and trazodone regimen. 14. RACHEL-continue CPAP nightly. 15. Type 2 diabetes mellitus, poorly controlled-hemoglobin A1c August 2019 10.8%. Continue home Lantus regimen with sliding scale insulin. DVT prophylaxis-Eliquis. This patient was seen by Meseret Delgado NP-Nathen under the supervision of Dr. He.
[2019-12-18] MEDS: Nystatin Powder 15gm Bottle 1 APPLIC TOPICAL (16:14)
[2019-12-18 16:25] LABS: Bedside Glucose 265 mg/dL (70-110)
--- NOTE | 2019-12-18 17:28 | PCM.EXTCARCO ---
- Diet 12/16/19 21:42 Diet: Cardiac: Calorie-Controlled Food consistency:: Regular Liquid Consistency:: Regular/Thin Dietary Modifications:: Consistent Carbohydrate How many daily calories?: 1800 calorie - Routine Orders/Code Status Enema Type: Fleetz Enema Frequency: Daily PRN Suppository Type: Dulcolax 10mg Suppository Frequency: Daily PRN O2 Liters per Minute: 3-4 O2 Frequency: Continuous Keep PO Greater than or Equal to (%): 90 Routine Lab Work: CBC, BMP, - - Repeat prior to surgery Code Status: DNRCC-A - with intubation - Suggestions for Active Care Change Position every (hours): 2 Times a day to sit in chair: 3 - Therapies Weight Bearing: Non weight bearing - LLE Extremity Affected:: Left Lower Physical Therapy: Eval and Treat Occupational Therapy: Eval and Treat - Problem/Diagnosis (1) Stage 2 moderate COPD by GOLD classification Status: Chronic (2) Syncope Status: Acute (3) Closed left ankle fracture Status: Acute (4) HTN (hypertension) Status: Chronic (5) Morbid obesity Status: Chronic (6) Type 2 diabetes mellitus Status: Chronic (7) Schizophrenia Status: Chronic (8) Morbid obesity with BMI of 45.0-49.9, adult Status: Chronic (9) Hyperlipidemia Status: Chronic (10) Benign essential hypertension Status: Chronic (11) CAD (coronary artery disease) Status: Chronic (12) RACHEL (obstructive sleep apnea) Status: Chronic Comment: 17/13 cm of water - Allergies/Procedures Done in Hospital Allergies/Adverse Reactions: Allergies amoxicillin Allergy (Verified 12/12/19 15:02) Itching erythromycin base Allergy (Verified 12/12/19 15:02) Unknown methadone Allergy (Verified 12/12/19 15:02) Itching metolazone Allergy (Verified 12/12/19 15:02) Unknown Penicillins Allergy (Verified 12/12/19 15:02) Hives Sulfa (Sulfonamide Antibiotics) Allergy (Verified 12/12/19 15:02) Hives acetaminophen [From Percocet] Adverse Reaction (Verified 12/12/19 15:02) Itching clarithromycin [From Biaxin] Adverse Reaction (Verified 12/12/19 15:02) Nausea ibuprofen Adverse Reaction (Verified 12/12/19 15:02) 3 BLEEDING ULCERS 3 BLEEDING ULCERS morphine Adverse Reaction (Verified 12/12/19 15:02) HEADACHE HEADACHE oxycodone [From Percocet] Adverse Reaction (Verified 12/12/19 15:02) Itching Procedures: 2-D Echocardiogram - Type of Care/Length of Stay Estimated LOS: Convalescent Care Less Than 30 days Type of Care Needed: Skilled Rehab Potential: Fair Prognosis: Fair - Additional Orders/Day of Discharge Additional Orders: Home Plavix regimen held due to plan for ORIF 12/23/2019. Eliquis continued however this will need held beginning 12/21/2019 prior to surgery. Nonweightbearing left lower extremity. H&P will serve as current which was dated: 12/16/19 Day of Discharge: 12/18/19 - Dietary and Speech Recommendations Dietitian Recommendations/Changes: Will add consistent-carbohydrate to 1800 kiel/cardiac diet as ordered. - Follow Up Care Primary Care Physician: Janel Taylor MD [Primary Care Provider] - Please follow up with your Primary Care Physician in: 1 Week- following DC from TCU Please Follow Up With: Ge Mitchell DPM When: Tentative plan for surgery 12/23/2019
--- NOTE | 2019-12-18 17:34 | DS.PCM_ITS ---
Discharge Date and Diagnosis - Problem List Patient Problems: Active and Suspected Problems (Last Reviewed 12/16/19 @ 21:[address] Jese Strauss DO) Syncope (Acute) Closed left ankle fracture (Acute) Date of Admission: 12/16/19 Date of Discharge: 12/18/19 - Primary Discharge Diagnosis Acute Problems: Active Problems (Last Reviewed 12/16/19 @ 21:[address] Jese Strauss DO) 1. Acute traumatic left trimalleolar fracture-secondary to fall prior to admission. 2. Syncope 3. Acute kidney injury 4. Chronic COPD with chronic hypoxic respiratory failure 5. CAD status post PCI x5 6. History of PE 7. History of peptic ulcer disease/GERD 8. Chronic pain syndrome 9. Hypertension 10. Hyperlipidemia 11. Iron deficiency anemia 12. Tobacco dependence 13. Schizophrenia/anxiety/depression 14. RACHEL 15. Type 2 diabetes mellitus, poorly controlled - Secondary Discharge Diagnosis Chronic Problems: Chronic Problems (Last Reviewed 12/16/19 @ 21:[address] Jese Strauss DO) Stage 2 moderate COPD by GOLD classification (Chronic) Acute and chronic respiratory failure with hypoxia (Chronic) Cataract (Chronic) Iron deficiency (Chronic) Iron deficiency anemia following bariatric surgery (Chronic) History of gastric bypass (Chronic) Myocardial infarction (Chronic) H/O heart artery stent (Chronic) Pulmonary emboli (Chronic) HTN (hypertension) (Chronic) Peptic ulcer (Chronic) Chronic neutrophilia (Chronic) Osteoarthritis (Chronic) Morbid obesity (Chronic) Neutrophilic leukocytosis (Chronic) Type 2 diabetes mellitus (Chronic) Schizophrenia (Chronic) Hip osteoarthritis (Chronic) with chronic pain-right hip Iron deficiency anemia due to dietary causes (Chronic) exact cause of iron def anemia unknown-felt likely secondary to past history gastric bypass- although chronic blood loss etiology a possibility (has never had colonoscopy)-further workup including hemoccult stool is recommended Morbid obesity with BMI of 45.0-49.9, adult (Chronic) Pulmonary hypertension (Chronic) Chronic narcotic use (Chronic) Depression (Chronic) Gastroesophageal reflux disease (Chronic) Parathyroid abnormality (Chronic) History of PTCA (Chronic) Vitamin D deficiency (Chronic) Hyperlipidemia (Chronic) Thyroid nodule (Chronic) deemed to be benign. Benign essential hypertension (Chronic) CAD (coronary artery disease) (Chronic) RACHEL (obstructive sleep apnea) (Chronic) 17/13 cm of water Spinal stenosis of lumbar region at multiple levels (Chronic) Tobacco abuse (Chronic) Hospital Course and Treatment Imaging Results: Diagnostic Data Brain CT 12/16/19 17:36 IMPRESSION: Moderate periventricular white matter ischemic changes. No evidence for acute bleed. If concern for acute infarct MRI recommended. Electronically Signed: Ge Giles MD at 18:29 EDT , Service support , Chest X-Ray 12/16/19 17:55 IMPRESSION: Elevated right hemidiaphragm and mild right middle lobe atelectasis. Interstitial thickening in the right upper lobe. Electronically Signed: Ge Giles MD at 18:34 EDT , Service support , Ankle X-Ray 12/16/19 19:23 IMPRESSION: Status post closed reduction of distal tibial and fibular fractures Electronically Signed: Ge Giles MD at 20:09 EDT , Service support , Lower Extremity CT 12/16/19 19:43 IMPRESSION: Acute trimalleolar fracture of the right ankle Electronically Signed: Ge Giles MD at 20:48 EDT , Service support , Dr. Mitchell- Podiatry Operations: None Procedures: 2-D Echocardiogram Summary of Care Provided: The patient is a 54 year old F admitted 12/16/2019 due to fall. 1. Acute traumatic left trimalleolar fracture-secondary to fall prior to admission. Podiatry following. Plan for ORIF 12/22 due to being on Plavix. Continue to hold Plavix. Eliquis restarted, will need to hold beginning 12/21/2019 prior to surgery. PT/OT. As needed pain regimen. Nonweightbearing left lower extremity. Keep splint intact. TCU at discharge prior to surgery and postoperatively for rehab. 2. Syncope-patient suspects she passed out following ankle fracture with fall. Troponin negative. Echocardiogram demonstrates an EF of 60%. Brain CT unremark able. 3. Acute kidney injury-resolved with IV fluids. Resume home low-dose Lasix. 4. Chronic COPD with chronic hypoxic respiratory failure- Patient wears supplemental oxygen with exertion only. Continue supplement oxygen to maintain O2 at or above 90%. Follows with Dr. Willoughby, pulmonary medicine. 5. CAD status post PCI x5-on Eliquis, Plavix, statin, lisinopril, metoprolol. Plavix on hold as noted above. 6. History of PE-on Eliquis. 7. History of peptic ulcer disease/GERD-continue omeprazole regimen. 8. Chronic pain syndrome-continue home Lyrica, tizanidine regimen. PRN pain regimen. 9. Hypertension-continue amlodipine, lisinopril, metoprolol. 10. Hyperlipidemia-continue statin regimen. 11. Iron deficiency anemia-stable, trend CBC. 12. Tobacco dependence-encourage cessation. 13. Schizophrenia/anxiety/depression-continue home BuSpar, Cymbalta, Risperdal and trazodone regimen. 14. RACHEL-continue CPAP nightly. 15. Type 2 diabetes mellitus, poorly controlled-hemoglobin A1c August 2019 10.8%. Home Lantus regimen increased to 40 units twice daily. Continue sliding scale insulin. General: Alert, Oriented x3, Cooperative HEENT: Atraumatic, PERRLA, EOMI, Normocephalic Neck: Supple, No JVD, Negative Carotid Bruits Lungs: Diminished, Wheezes Cardiovascular: Regular rate, No murmurs Abdomen: Bowel Sounds Present, Soft, Non Tender, Non-Distended Extremities: No clubbing, No cyanosis, No edema, Capillary Refill Less than 3 Seconds Skin: No rashes, No breakdown Musculoskeletal: No Tenderness to Palpation of Joints or Extremities, - - Left ankle brace in place Neurological: Cranial nerves II-XII grossly intact, Neuro grossly intact Psych/Mental Status: Normal Affect, Appropriate Patient seen and examined prior to discharge. Physical assessment as noted above. Patient is stable for discharge with follow up recommendations as noted above. This patient was seen by ERROL Lunsford under the supervision of Dr. He. Patient Problems: Active and Suspected Problems (Last Reviewed 12/16/19 @ 21:[address] Jese Strauss, DO) Syncope (Acute) Closed left ankle fracture (Acute) - Physical Exam Vitals/I&O's: Vital Signs Temp Pulse Resp BP Pulse Ox 98.2 F 73 18 125/70 H 92 12/18/19 14:33 12/18/19 14:33 12/18/19 14:33 12/18/19 14:33 12/18/19 14:33 Oxygen Flow Rate (L/min) [3] 6 Oxygen Flow Rate (L/min) [2] 6 Oxygen Flow Rate (L/min) [1 ( 2 Initial Baseline)] Oxygen Flow Rate (L/min) 3 Oxygen Delivery Method [3] Nasal Cannula Oxygen Delivery Method [2] Nasal Cannula Oxygen Delivery Method [1 ( Nasal Cannula Initial Baseline)] Oxygen Delivery Method Nasal Cannula Weight: 246 lb 14.684 oz Body Mass Index (BMI) 43.7 Finger Stick Blood Glucose 422 Orthostatic Vital Signs Start: 12/17/19 00:52 Freq: q24h Status: Active Protocol: Activity Type Activity Date Activity User E-Sign Co-Sign Detail Recorded Client Recorded Date Recorded By Document 12/16/19 23:30 [facility] [id number] 12/17/19 00:53 JC 12/16/19 23:30 Orthostatic Vitals Sitting -Blood Pressure (90/60-120/80) 148/91 H -Extremity Use Left Arm -Pulse Rate (60-100) 60 Lying -Blood Pressure (90/60-120/80) 149/72 H -Extremity Use Left Arm -Pulse Rate (60-100) 57 L Intake and Output for Last 24 Hours 12/16/19 12/17/19 12/18/19 23:59 23:59 23:59 Intake Total 490 / 1240 2932 / 2932 350 / 350 Output Total 3375 / 3375 625 / 625 Balance 490 / 540 -443 / -443 -275 / -275 Laboratory Results 12/17/19 22:20: POC Glucose 247 H 12/18/19 05:00: WBC 14.1 H, RBC 4.25, Hgb 13.0, Hct 40.1, MCV 94.4, MCH 30.6, MCHC 32.4, RDW Std Deviation 49.1 H, RDW Coeff of Kaycee 14.2, Plt Count 198, MPV 10.2 12/18/19 05:00: Sodium 136, Potassium 3.6, Chloride 102, Carbon Dioxide 31.0, Anion Gap 3 L, BUN 9, Creatinine 0.65, Estim Creat Clear Calc 81.85, Est GFR (MDRD) Af Amer 121, Est GFR (MDRD) Non-Af 100, BUN/Creatinine Ratio 13.8, Glucose 149 H, Calcium 9.2 12/18/19 05:00: Hemoglobin A1c 11.4 H 12/18/19 05:00: Vitamin D 25-Hydroxy 28.8 12/18/19 07:37: POC Glucose 225 H 12/18/19 11:39: POC Glucose 100 12/18/19 13:20: COVID-19 ([place]) Not Detected 12/18/19 16:10: POC Glucose 265 H Current Medications Albuterol Sulfate (Ventolin Aerosols) 2.5 mg INHALATION Q4H PRN PRN PRN Reason: Sob &/Or Wheezing Albuterol/Ipratropium (Duoneb) 3 ml INHALATION Q6HWA.RT [facility] Last Admin: 12/18/19 13:02 Dose: 3 ml Documented by: Amlodipine Besylate (Norvasc) 10 mg PO DAILY [facility] Last Admin: 12/18/19 10:26 Dose: 10 mg Documented by: Apixaban (Apixaban 5 Mg Tablet) 5 mg PO BID [facility] Last Admin: 12/18/19 10:22 Dose: 5 mg Documented by: Atorvastatin Calcium (Lipitor) 80 mg PO QHS [facility] Last Admin: 12/17/19 22:26 Dose: 80 mg Documented by: Buspirone HCl (Buspar) 30 mg PO BID [facility] Last Admin: 12/18/19 08:46 Dose: 30 mg Documented by: Dextrose (D50w Syringe) 0 gm IV X1 PRN; Protocol PRN Reason: Hypoglycemia Escitalopram Oxalate (Lexapro) 20 mg PO DAILY [facility] Last Admin: 12/18/19 08:46 Dose: 20 mg Documented by: Furosemide (Furosemide 20 Mg Tablet) 20 mg PO DAILY [facility] Glucagon () 1 mg IM .X1 PRN PRN Reason: Hypoglycemia Hydromorphone HCl (Dilaudid Tablet) 2 mg PO Q3H PRN PRN PRN Reason: Pain Score 4-5 Hydromorphone HCl (Dilaudid Tablet) 4 mg PO Q3H PRN PRN Reason: Pain Score 6-10 Last Admin: 10/14/20 09:31 Dose: 4 mg Documented by: Hydromorphone HCl (Dilaudid Inj) 0.5 mg IV Q4H PRN PRN PRN Reason: Pain Score 4-10 Last Admin: 12/17/19 19:53 Dose: 0.5 mg Documented by: Sodium Chloride () 250 mls @ 15 mls/hr IV .[id number] PRN PRN Reason: Saline Flush Sodium Chloride () 250 mls @ 15 mls/hr IV .[id number] PRN PRN Reason: Additional IVPB Infusion Insulin Glargine (Insulin Glargine 100 Units/Ml Pen) 40 units SC BID [facility] Last Admin: 12/18/19 10:25 Dose: 40 units Documented by: Insulin Human Lispro (Insulin Lispro 100 Unit/Ml Insuln.Pen) 15 unit SC TIDAC [facility] Last Admin: 12/18/19 16:12 Dose: 15 units Documented by: Insulin Human Lispro (Insulin Lispro 100 Unit/Ml Insuln.Pen) 0 unit SC ACHS [facility]; Protocol Last Admin: 12/18/19 16:13 Dose: 3 units Documented by: Lactobacillus Acidophilus (Acidophilus) 2 tablet PO BID [facility] Last Admin: 12/18/19 10:25 Dose: 2 tablet Documented by: Lisinopril (Zestril) 20 mg PO QHS [facility] Last Admin: 12/17/19 22:26 Dose: 20 mg Documented by: Metoprolol Succinate (Toprol Xl (Beta Trino)) 50 mg PO DAILY [facility] Last Admin: 12/18/19 10:27 Dose: 50 mg Documented by: Mirabegron (Myrbetriq) 25 mg PO DAILY [facility] Last Admin: 12/18/19 08:47 Dose: 25 mg Documented by: Montelukast Sodium (Singulair) 10 mg PO QHS [facility] Last Admin: 12/17/19 22:26 Dose: 10 mg Documented by: Nicotine (Nicotine 21 Mg Patch) 21 mg TRANSDERM. DAILY [facility] Nitroglycerin (Nitrostat) 0.4 mg SUBLINGUAL Q5M PRN PRN Reason: CARDIAC/CHEST PAIN Nystatin (Mycostatin Powder) 1 applic TOPICAL 4X/DAY [facility]; Protocol Last Admin: 12/18/19 16:14 Dose: 1 applicatio Documented by: Ondansetron HCl (Zofran) 4 mg IV Q8H PRN PRN PRN Reason: NAUSEA/VOMITING Prednisone () 40 mg PO DAILYCM [facility] Last Admin: 12/18/19 08:46 Dose: 40 mg Documented by: Pregabalin (Lyrica) 75 mg PO TID [facility] Last Admin: 12/18/19 14:40 Dose: 75 mg Documented by: Promethazine HCl (Phenergan Tablet) 12.5 mg PO BID PRN PRN PRN Reason: NAUSEA Risperidone (Risperdal) 4 mg PO QHS [facility] Last Admin: 12/17/19 22:27 Dose: 4 mg Documented by: Sodium Chloride () 10 - 40 ml IV UD PRN PRN Reason: SALINE FLUSH Last Admin: 12/16/19 22:52 Dose: 10 ml Documented by: Sucralfate (Carafate) 1 gm PO 1HR_ACHS [facility] Last Admin: 12/18/19 16:13 Dose: 1 gm Documented by: Tizanidine HCl (Zanaflex) 6 mg PO TID PRN PRN PRN Reason: SPASMS Last Admin: 12/18/19 14:37 Dose: 6 mg Documented by: Trazodone HCl (Desyrel) 200 mg PO QHS [facility] Last Admin: 12/17/19 22:26 Dose: 200 mg Documented by: Home Medications: Medications to take at Discharge Atorvastatin Calcium [Lipitor] 80 mg PO QHS 08/22/15 Metoprolol(XL)Succ [Toprol Xl (Beta Trino)] 50 mg PO DAILY 08/22/15 Nitroglycerin 0.4 mg SL PRN PRN 11/08/16 amlodipine 10 mg tablet 10 mg PO DAILY tab 05/02/17 potassium chloride 10 mEq tablet,extended release(part/cryst) 10 meq PO DAILY #60 tab 06/16/17 Pregabalin [Lyrica] 75 mg PO TID 03/08/18 Risperidone 4 mg PO QHS 03/08/18 Tizanidine HCl 6 mg PO TID PRN PRN 03/08/18 traZODone [Desyrel] 200 mg PO QHS 03/08/18 Furosemide [Lasix] 20 mg PO DAILY 11/20/18 Lisinopril 20 mg PO QHS 11/20/18 Mirabegron [Myrbetriq] 25 mg PO DAILY 11/20/18 Apixaban [Eliquis] 5 mg PO BID 05/02/19 Fluticasone/Salmeterol [Advair Hfa 230-21 Mcg Inhaler] 2 puff INHALATION DAILY 05/02/19 albuterol sulfate 90 mcg/actuation aerosol inhaler 2 puff INHALATION Q6H PRN 06/27/19 buspirone 30 mg tablet 30 mg PO BID tab 06/27/19 sucralfate 1 gram tablet 1 g PO QACHS 06/27/19 Nystatin [Nystop] 1 applic TP 4X/DAY 08/22/19 proMETHazine tablet [Phenergan tablet] 12.5 - 25 mg PO BID PRN PRN 08/22/19 tiotropium bromide 2.5 mcg/actuation mist for inhalation 2 puff INHALATION DAILY #4 g 09/30/19 montelukast 10 mg tablet 10 mg PO QHS #30 tab 10/30/19 albuterol sulfate 2.5 mg INHALATION Q4H PRN #180 ml 12/11/19 Lactobacillus Acidophilus [Acidophilus] 2 tab PO BID 12/16/19 HYDROmorphone tablet [Dilaudid] 2 mg PO Q3H PRN PRN 5 Days tablet 12/18/19 Insulin Glargine [Lantus SoloStar Pen] 40 units SC BID pen 12/18/19 Insulin Lispro [Humalog KwikPen] See Protocol SC ACHS insuln.pen 12/18/19 Nicotine [Nicoderm Cq] 21 mg TRANSDERM. DAILY patch 12/18/19 Primary Care Physician: Janel Taylor MD [Primary Care Provider] - Please follow up with your Primary Care Physician in: 1 Week- following DC from TCU Please Follow Up With: Ge Mitchell DPM When: Tentative plan for surgery 12/23/2019 Please Follow Up With: Janel Taylor MD [facility]position: [facility] Minutes spent on discharge:: 35 Patient Condition:: Stable Medical Necessity - Tobacco Use Smoking Status: Heavy Smoker (>10/day) Tobacco Use: Cigarettes Meaningful Use Info Meaningful Use Diagnoses (Choose all that apply): None applicable
== END 2019-12-18 19:50 | disposition skilled nursing facility (03) | DRG 312 ==
LOC: ED 19:47 → PCU 21:15
PROVIDERS: Internal Medicine; Nurse Practitioner Family; Podiatrist; Emergency Provider Emergency Medicine; PCP Family Medicine; Visit Provider Internal Medicine
DX: R55 Syncope and collapse (principal); F31.81 Bipolar II disorder; N17.9 Acute kidney failure, unspecified; J96.11 Chronic respiratory failure with hypoxia; Z68.41 Body mass index [BMI] 40.0-44.9, adult; S82.852A Displaced trimalleolar fracture of left lower leg, initial encounter for closed fracture; I25.10 Atherosclerotic heart disease of native coronary artery without angina pectoris; J44.9 Chronic obstructive pulmonary disease, unspecified; I27.20 Pulmonary hypertension, unspecified; E11.65 Type 2 diabetes mellitus with hyperglycemia; I10 Essential (primary) hypertension; D50.9 Iron deficiency anemia, unspecified; E78.5 Hyperlipidemia, unspecified; G89.4 Chronic pain syndrome; W19.XXXA Unspecified fall, initial encounter; Y93.01 Activity, walking, marching and hiking; Y92.000 Kitchen of unspecified non-institutional (private) residence as the place of occurrence of the external cause; Y99.9 Unspecified external cause status; M16.11 Unilateral primary osteoarthritis, right hip; G47.33 Obstructive sleep apnea (adult) (pediatric); K21.9 Gastro-esophageal reflux disease without esophagitis; F25.9 Schizoaffective disorder, unspecified; F41.9 Anxiety disorder, unspecified; F17.210 Nicotine dependence, cigarettes, uncomplicated; E66.01 Morbid (severe) obesity due to excess calories; Z23 Encounter for immunization; Z79.891 Long term (current) use of opiate analgesic; Z79.01 Long term (current) use of anticoagulants; Z79.51 Long term (current) use of inhaled steroids; Z79.4 Long term (current) use of insulin; Z79.899 Other long term (current) drug therapy; Z86.711 Personal history of pulmonary embolism; Z87.11 Personal history of peptic ulcer disease; I25.2 Old myocardial infarction; Z98.84 Bariatric surgery status; Z95.5 Presence of coronary angioplasty implant and graft
CPT/HCPCS: 36415; 70450; 71045; 73600; 73700; 80048; 81001; 82306; 82962; 83036; 84484; 85025; 85027; 87635; 93005; 93306; 94002; 94003; 94640; 97110; 97162; 97166; 97530; 97802; 99251; 99285; 99406; G0008; J7030; Q9957; 90686; A4216; C8929; G0463; J2405; U0003

== ENCOUNTER 2019-12-18 20:27 | Inpatient (IN) | payer MEDICARE, MEDICAID, SELFPAY ==
[2019-12-16 21:06] VITALS: BMI 43.7
[2019-12-18 20:33] VITALS: BP 154/69; PULSE 66; RESP 18; TEMP 37; O2SAT 96
--- NOTE | 2019-12-18 20:43 | HP.PCM_ITS ---
Problem List (1) Debility Status: Acute (2) Fall Status: Acute (3) Diabetic polyneuropathy Status: Chronic (4) Muscle spasm Status: Chronic (5) Insomnia Status: Chronic (6) Overactive bladder Status: Chronic (7) Anxiety Status: Chronic (8) Coronary artery disease Status: Chronic (9) COPD (chronic obstructive pulmonary disease) Status: Chronic (10) Diabetes mellitus Status: Chronic (11) Pulmonary emboli Status: Chronic (12) Syncope Status: Acute (13) Closed left ankle fracture Status: Acute (14) HTN (hypertension) Status: Chronic (15) Osteoarthritis Status: Chronic (16) Schizophrenia Status: Chronic (17) Depression Status: Chronic (18) Gastroesophageal reflux disease Status: Chronic (19) Hyperlipidemia Status: Chronic (20) RACHEL (obstructive sleep apnea) Status: Chronic Comment: 17/13 cm of water History of Present Illness Date of Admission: 12/18/19 Chief Complaint: Here for rehabilitation, strengthening, prior to ORIF left ankle. 12/16/19 The patient is a 54 year old Female with below past medical history presented to [facility] Emergency Department with lower extremity injury. 12/16/19 CT brain moderate periventricular white matter changes. 12/16/19 Chest X-ray elevated right hemidiaphragm, mild right middle lobe atelectasis, right upper lobe interstitial thickening. 12/16/19 X-ray left ankle status post closed reduction of distal tibia, fibula fracture. 12/16/19 CT left ankle showed acute trimalleolar fracture left ankle. Fall, left ankle fracture, loss of consciousness. Closed reduction under sedation, posterior plus sugar tong splint. 12/16/19 Admit to Hospital. ?Syncope. Consult Podiatry. Hold Plavix, Hold Eliquis. 12/17/19 Dr. Mitchell recommended ORIF 12/22 or 12/23. Non weight bearing left lower extremity. 12/17/19 Echo left ventricular systolic function normal. EF 60% Impaired relaxation left ventricle. 12/18/19 Hold Plavix. Eliquis restarted, hold Eliquis 12/20. Troponin negative, Echo okay, CT brain okay work up for syncope. 12/18/19 Admit to TCU with debility, here for rehabilitation, strengthening, prior to ORIF left ankle fracture. Past Medical History Past Medical History (Chronic Problems): Chronic Problems (Last Reviewed 12/16/19 @ 21:[address] Jese Strauss, DO) Stage 2 moderate COPD by GOLD classification (Chronic) Acute and chronic respiratory failure with hypoxia (Chronic) Cataract (Chronic) Iron deficiency (Chronic) Iron deficiency anemia following bariatric surgery (Chronic) History of gastric bypass (Chronic) Myocardial infarction (Chronic) H/O heart artery stent (Chronic) Pulmonary emboli (Chronic) Diabetic polyneuropathy (Chronic) Muscle spasm (Chronic) Insomnia (Chronic) Overactive bladder (Chronic) Anxiety (Chronic) Coronary artery disease (Chronic) COPD (chronic obstructive pulmonary disease) (Chronic) Diabetes mellitus (Chronic) HTN (hypertension) (Chronic) Peptic ulcer (Chronic) Chronic neutrophilia (Chronic) Osteoarthritis (Chronic) Morbid obesity (Chronic) Neutrophilic leukocytosis (Chronic) Type 2 diabetes mellitus (Chronic) Schizophrenia (Chronic) Hip osteoarthritis (Chronic) with chronic pain-right hip Iron deficiency anemia due to dietary causes (Chronic) exact cause of iron def anemia unknown-felt likely secondary to past history gastric bypass- although chronic blood loss etiology a possibility (has never had colonoscopy)-further workup including hemoccult stool is recommended Morbid obesity with BMI of 45.0-49.9, adult (Chronic) Pulmonary hypertension (Chronic) Chronic narcotic use (Chronic) Depression (Chronic) Gastroesophageal reflux disease (Chronic) Parathyroid abnormality (Chronic) History of PTCA (Chronic) Vitamin D deficiency (Chronic) Hyperlipidemia (Chronic) Thyroid nodule (Chronic) deemed to be benign. Benign essential hypertension (Chronic) CAD (coronary artery disease) (Chronic) RACHEL (obstructive sleep apnea) (Chronic) 17/13 cm of water Spinal stenosis of lumbar region at multiple levels (Chronic) Tobacco abuse (Chronic) Medical History: Medical History (Last Reviewed 12/16/19 @ 21:[address] Jese Strauss, DO) HTN (hypertension) (Chronic) I10 Peptic ulcer (Chronic) K27.9 Chronic neutrophilia (Chronic) D72.828 Osteoarthritis (Chronic) M19.90 Morbid obesity (Chronic) E66.01 Neutrophilic leukocytosis (Chronic) D72.9 Type 2 diabetes mellitus (Chronic) E11.9 Schizophrenia (Chronic) F20.9 Hip osteoarthritis (Chronic) M16.9 with chronic pain-right hip Iron deficiency anemia due to dietary causes (Chronic) D50.8 exact cause of iron def anemia unknown-felt likely secondary to past history gastric bypass- although chronic blood loss etiology a possibility (has never had colonoscopy)-further workup including hemoccult stool is recommended Morbid obesity with BMI of 45.0-49.9, adult (Chronic) E66.01, Z68.42 Pulmonary hypertension (Chronic) I27.2 Chronic narcotic use (Chronic) F11.90 Depression (Chronic) F32.9 Gastroesophageal reflux disease (Chronic) K21.9 Parathyroid abnormality (Chronic) E21.5 Vitamin D deficiency (Chronic) E55.9 Hyperlipidemia (Chronic) E78.5 Thyroid nodule (Chronic) E04.1 deemed to be benign. Benign essential hypertension (Chronic) I10 CAD (coronary artery disease) (Chronic) I25.10 RACHEL (obstructive sleep apnea) (Chronic) G47.33 17/13 cm of water Spinal stenosis of lumbar region at multiple levels (Chronic) M48.06 Tobacco abuse (Chronic) Z72.0 Bipolar 2 disorder F31.81 History of pulmonary embolism Z86.711 Schizoaffective disorder F25.9 Allergies amoxicillin Allergy (Verified 12/12/19 15:02) Itching erythromycin base Allergy (Verified 12/12/19 15:02) Unknown methadone Allergy (Verified 12/12/19 15:02) Itching metolazone Allergy (Verified 12/12/19 15:02) Unknown Penicillins Allergy (Verified 12/12/19 15:02) Hives Sulfa (Sulfonamide Antibiotics) Allergy (Verified 12/12/19 15:02) Hives acetaminophen [From Percocet] Adverse Reaction (Verified 12/12/19 15:02) Itching clarithromycin [From Biaxin] Adverse Reaction (Verified 12/12/19 15:02) Nausea ibuprofen Adverse Reaction (Verified 12/12/19 15:02) 3 BLEEDING ULCERS 3 BLEEDING ULCERS morphine Adverse Reaction (Verified 12/12/19 15:02) HEADACHE HEADACHE oxycodone [From Percocet] Adverse Reaction (Verified 12/12/19 15:02) Itching Home Medications: Ambulatory Orders Medication Instructions Recorded Atorvastatin Calcium [Lipitor] 80 mg PO QHS 08/22/15 Metoprolol(XL)Succ [Toprol Xl 50 mg PO DAILY 08/22/15 (Beta Trino)] Nitroglycerin 0.4 mg SL PRN PRN 11/08/16 amlodipine 10 mg tablet 10 mg PO DAILY tab 05/02/17 potassium chloride 10 mEq 10 meq PO DAILY #60 tab 06/16/17 tablet,extended release(part/cryst) Pregabalin [Lyrica] 75 mg PO TID 03/08/18 Risperidone 4 mg PO QHS 03/08/18 Tizanidine HCl 6 mg PO TID PRN PRN 03/08/18 traZODone [Desyrel] 200 mg PO QHS 03/08/18 Furosemide [Lasix] 20 mg PO DAILY 11/20/18 Lisinopril 20 mg PO QHS 11/20/18 Mirabegron [Myrbetriq] 25 mg PO DAILY 11/20/18 Apixaban [Eliquis] 5 mg PO BID 05/02/19 Fluticasone/Salmeterol [Advair Hfa 2 puff INHALATION DAILY 05/02/19 230-21 Mcg Inhaler] albuterol sulfate 90 mcg/actuation 2 puff INHALATION Q6H PRN 06/27/19 aerosol inhaler buspirone 30 mg tablet 30 mg PO BID tab 06/27/19 sucralfate 1 gram tablet 1 g PO QACHS 06/27/19 Nystatin [Nystop] 1 applic TP 4X/DAY 08/22/19 proMETHazine tablet [Phenergan 12.5 - 25 mg PO BID PRN PRN 08/22/19 tablet] tiotropium bromide 2.5 2 puff INHALATION DAILY #4 g 09/30/19 mcg/actuation mist for inhalation montelukast 10 mg tablet 10 mg PO QHS #30 tab 10/30/19 albuterol sulfate 2.5 mg INHALATION Q4H PRN #180 ml 12/11/19 Lactobacillus Acidophilus 2 tab PO BID 12/16/19 [Acidophilus] HYDROmorphone tablet [Dilaudid] 2 mg PO Q3H PRN PRN 5 Days tab 12/18/19 Insulin Glargine [Lantus SoloStar 40 units SC BID 12/18/19 Pen] Insulin Lispro [Humalog KwikPen] See Protocol SC ACHS 12/18/19 Nicotine [Nicoderm Cq] 21 mg TRANSDERM. DAILY 12/18/19 Surgical History: Surgical History (Last Reviewed 12/16/19 @ 21:[address] Jese Strauss, DO) History of PTCA (Chronic) Z98.61 History of appendectomy Z98.890, Z90.49 History of carpal tunnel surgery of left wrist Z98.890 History of cholecystectomy Z98.890, Z90.49 History of gastric bypass Z98.84 History of tonsillectomy Z98.890, Z90.89 history of carpal tunnel release left wrist 2018 history of right hip surgery Surgical History: angioplasty - Cardiac stent., appendectomy, cholecystectomy, herniorrhaphy, total hip arthroplasty - Right., tonsillectomy, - - Right lower extremity surgery x3 as well as bone grafting, gastric bypass. 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 Jese Strauss DO) Mother Heart disease Cancer Father Hypertension Arthritis Hyperlipemia Grandmother Breast cancer Heart disease Grandfather Heart disease History Items: Hypertension Paternal Family History: Family History (Last Reviewed 12/16/19 @ 21:[address] Jese Strauss DO) Mother Heart disease Cancer Father Hypertension Arthritis Hyperlipemia Grandmother Breast cancer Heart disease Grandfather Heart disease History Items: High Cholesterol, Heart Disease, Hypertension Maternal Family History: Family History (Last Reviewed 12/16/19 @ 21:[address] Jese Strauss DO) Mother Heart disease Cancer Father Hypertension Arthritis Hyperlipemia Grandmother Breast cancer Heart disease Grandfather Heart disease History Items: Cancer, Heart Disease Review of Systems Constitutional: Denies: Chills, Fever, Weight Change HEENT: Denies: Head Aches, Sinus Congestion, Sinus Drainage Cardiovascular: Denies: Chest Pain, Palpitations Respiratory: Denies: Cough, Shortness of breath at rest, Sputum production Gastrointestinal: Denies: Abdominal Pain, Nausea, Vomiting Genitourinary: Denies: Dysuria Musculoskeletal: Denies: Joint Pain, Joint Tenderness Skin: Denies: Rash, Wounds Neurological: Denies: Numbness, Tingling, Focal weakness Psychiatric: Denies: Anxiety, Depression, Homicidal Ideations, Suicidal Ideations Hematologic/ Lymphatic: Denies: Easy Bruising, Easy Bleeding VTE Information - Inpt Only VTE Present on Admission: No VTE Mechan Device Prophylaxis: Knee High SANJANA Hose VTE Pharm Prophylaxis ordered?: No Reason prophylaxis not ordered:: Treatment Not Indicated Patient Problems: Active and Suspected Problems (Last Reviewed 12/16/19 @ 21:[address] Jese Strauss, DO) Syncope (Acute) Closed left ankle fracture (Acute) Debility (Acute) Fall (Acute) - Physical Exam Vitals/I&O's: Body Mass Index (BMI) 43.7 Finger Stick Blood Glucose 422 General: Alert, Oriented x3, Cooperative HEENT: Atraumatic, PERRLA, EOMI, Normocephalic Neck: Supple, No JVD, Negative Carotid Bruits Lungs: Clear to auscultation, Normal air movement Cardiovascular: Regular rate, No murmurs Abdomen: Bowel Sounds Present, Soft, Non Tender Extremities: No edema, Capillary Refill Less than 3 Seconds, - - Left lower extremity splint, DANETTE wrap. Skin: No rashes, No breakdown Musculoskeletal: No Tenderness to Palpation of Joints or Extremities Neurological: Cranial nerves II-XII grossly intact Psych/Mental Status: Normal Affect, Appropriate Assessment/Plan All Active Problems (Last Reviewed 12/16/19 @ 21:[address] Jese Strauss, DO) Syncope (Acute) Closed left ankle fracture (Acute) Debility (Acute) Fall (Acute) Diarrhea (Resolved) Hypokalemia (Resolved) 54 year old female with below past medical history hospitalized for left ankle fracture, syncope evaluation negative, admitted to TCU with debility, here for rehabilitation, strengthening, prior to ORIF left ankle fracture per Dr. Mitchell, prior to further therapy, then discharge home alone. * Debility - PT/OT. * Pain - Tramadol 50MG Q6H PRN pain (1-5), Dilaudid 2MG Q3H PRN pain (6-10). * Bowel - Miralax 17GM BID, Senna/colace 2 tablets BID, Dulcolax 10MG VA daily PRN. * Adult immunization - Administer Prevnar 13, Pneumovax 23, Fluzone as appropriate. * DVT prophylaxis - Not necessary, already on Eliquis. * Hyperlipidemia - Atorvastatin 80MG QHS. * Coronary Artery Disease - Metoprolol succinate 50MG daily, Lisinopril 20MG QHS, Plavix 75MG daily (start after surgery), NTG 0.4MG SL PRN chest pain. * Hypertension - Metoprolol succinate 50MG daily, Lisinopril 20MG QHS, Amlodipine 10MG daily. * Hypokalemia - KCL ER 10MEQ daily. * Diabetic polyneuropathy - Lyrica 75MG TID. * Schizophrenia - Risperidone 4MG QHS, stable chronic halfway use, GDR not recommended. * Muscle spasm - Tizanidine 6MG TID PRN. * Insomnia - Trazodone 200MG QHS. * Edema - Lasix 20MG daily. * Overactive bladder - Myrbetriq 25MG daily. * Pulmonary Embolism - Eliquis 5MG BID (Hold 12/20 to prepare for surgery) * COPD - Advair 2 puffs daily, Spiriva 2 puffs daily, Albuterol MDI 2 puffs Q6H, Albuterol 2.5MG nebulized Q4H PRN. * Anxiety - Buspirone 30MG BID. * GERD - Sucralfate 1GM QACHS. * Tinea Corporis - Nystatin topical 4x/day. * Nausea - Phenergan 12.5-25MG BID PRN. * Allergic rhinitis - Montelukast 10MG QHS. * GI prophylaxis - Lactobacillus 2 tablets BID. * Diabetes Mellitus II - Lantus 40 units BID. * Tobacco Abuse - Nicotine 21MG TD daily.
[2019-12-18] MEDS: HYDROmorphone 2 MG TABLET PO (21:52)
[2019-12-18 21:54] VITALS: BMI 44.2
[2019-12-18 22:03] VITALS: BMI 44.3
[2019-12-18 22:10] LABS: Bedside Glucose 222 mg/dL (70-110)
[2019-12-18] MEDS: traZODone 100 MG Tablet 200 MG PO (22:29)
[2019-12-18] MEDS: Atorvastatin Calcium 80 MG Tablet PO (22:29)
[2019-12-18] MEDS: RisperiDONE 2 MG Tablet 4 MG PO (22:29)
[2019-12-18] MEDS: Sucralfate 1 GM Tablet PO (22:30)
[2019-12-18] MEDS: Montelukast 10 MG Tablet PO (22:33)
[2019-12-18] MEDS: Lisinopril 20 MG Tablet PO (22:34)
[2019-12-18 22:35] VITALS: BP 154/69; PULSE 66
[2019-12-18] MEDS: Metoprolol(XL)Succ 50 MG Tablet PO (22:35)
[2019-12-18] MEDS: Pregabalin 75 MG Capsule PO (22:39)
[2019-12-18] MEDS: tiZANidine HCl 2 MG Tablet 6 MG PO (22:42)
--- NOTE | 2019-12-18 22:54 | NURSING ---
Pt admitted to room 3 , lukas wrap from toes to below knee of left lower ext, painful, med for pain,elevated on pillow
[2019-12-19 00:45] VITALS: PULSE 59; RESP 14; O2SAT 94
[2019-12-19 04:30] VITALS: PULSE 60; RESP 14; RESP 17; O2SAT 95
[2019-12-19 05:19] VITALS: BP 153/71; PULSE 66; RESP 18; TEMP 36.8; O2SAT 93
[2019-12-19] MEDS: Pregabalin 75 MG Capsule PO ×3 (05:21→20:43)
[2019-12-19] MEDS: HYDROmorphone 2 MG TABLET PO ×5 (05:21→21:48)
[2019-12-19] MEDS: busPIRone 15 MG TABLET 30 MG PO ×2 (05:22→17:57)
[2019-12-19] MEDS: amLODIPine 10 MG Tablet PO (05:23)
[2019-12-19] MEDS: Furosemide 20 MG Tablet PO (05:23)
[2019-12-19] MEDS: Senna/Docusate Sodium 1 Tablet 2 TABLET PO ×2 (05:23→17:58)
[2019-12-19] MEDS: Sucralfate 1 GM Tablet PO ×4 (05:23→20:44)
[2019-12-19 05:24] VITALS: BP 153/71; PULSE 66
[2019-12-19] MEDS: Polyethylene Glycol 3350 17 GM PACKET PO ×2 (05:24→17:57)
[2019-12-19] MEDS: Mirabegron 25 MG TAB.ER.24H PO (05:24)
[2019-12-19] MEDS: Metoprolol(XL)Succ 50 MG Tablet PO (05:24)
[2019-12-19] MEDS: APIXABAN 5 MG TABLET PO ×2 (05:28→17:57)
[2019-12-19] MEDS: Fluticasone/Salmeterol 232-14 Inhaler 1 PUFF IH ×2 (05:29→17:58)
[2019-12-19 05:33] LABS: Absolute Lymphocyte Count 2.43 X10^3/uL (0.83-4.51); Absolute Neutrophil Count 9.9 X10^3/uL (2.0-7.7); Basophil# 0.05 X10^3/uL; Basophil% 0.4 % (0-1); Eosinophil# 0.12 X10^3/uL; Eosinophils% 0.9 % (0-5); Hematocrit 39.5 % (37-47); Hemoglobin 12.9 g/dL (12.0-15.0); Lymphocyte # 2.43 X10^3/ul (4.0); Lymphocyte % 18.2 % (19-41); Mean Corp Hgb Conc 32.7 g/dL (32-36); Mean Corpuscular Hgb 30.8 pg (27.0-32.0); Mean Corpuscular Volume 94.3 fL (81-99); Mean Platelet Vol. 10.2 fl (6.2-12.0); NRBC Flagged by Analyzer 0 % (0-5); Neutrophil # 9.92 X10^3/uL (2.7-7.7); Neutrophil % 74.1 % (47-70); Platelet Count 186 K/mm3 (150-450); RBC Distribution Width CV 14.5 % (11.6-14.6); Red Blood Count 4.19 M/mm3 (4.2-5.4); White Blood Count 13.4 K/mm3 (4.4-11.0)
[2019-12-19] MEDS: Umeclidinium Bromide Inhaler 1 PUFF IH (05:36)
[2019-12-19 05:38] VITALS: PULSE 64; RESP 17; O2SAT 91
[2019-12-19] MEDS: Albuterol 2.5 MG/3 ML VIAL.NEB. INHALATION (05:38)
[2019-12-19] MEDS: 0.9% Saline Lock 10 ML Syringe IV ×2 (05:41→13:02)
[2019-12-19] MEDS: Nystatin Powder 15gm Bottle 1 APPLIC TOPICAL ×2 (05:42→21:05)
[2019-12-19 05:48] LABS: Anion Gap 2 (5-15); BUN 12 mg/dL (7-18); BUN/Creat Ratio 16.9 RATIO (10-20); Calcium,Total 9.4 mg/dL (8.5-10.1); Chloride 101 mmol/L (98-107); Creatinine, Serum 0.71 mg/dL (0.55-1.02); EST Glomerular Filtration Rate 91 mL/min (>60); Est Glom Filt Rate - Afr Amer 110 mL/min (>60); Estimated Creatinine Clearance 74.93 ml/min; Glucose 155 mg/dL (74-106); Potassium 3.5 mmol/L (3.5-5.1); Sodium Level 136 mmol/L (136-145)
[2019-12-19] MEDS: tiZANidine HCl 2 MG Tablet 6 MG PO ×3 (06:24→23:17)
[2019-12-19 06:30] LABS: Bedside Glucose 252 mg/dL (70-110)
[2019-12-19] MEDS: Tuberculin,Purif.prot.deriv. 50 TU/ML Vial 5 ML ID (10:17)
[2019-12-19 11:11] LABS: Bedside Glucose 192 mg/dL (70-110)
[2019-12-19 13:23] VITALS: BP 141/69; PULSE 67; RESP 18; TEMP 36.6; O2SAT 91
--- NOTE | 2019-12-19 13:48 | MDS.RN ---
Resident states she does not want anyone notified for care plan conference scheduled for 12/25/19.
[2019-12-19 17:11] LABS: Bedside Glucose 221 mg/dL (70-110)
[2019-12-19] MEDS: Atorvastatin Calcium 80 MG Tablet PO (20:44)
[2019-12-19] MEDS: traZODone 100 MG Tablet 200 MG PO (20:45)
[2019-12-19] MEDS: RisperiDONE 2 MG Tablet 4 MG PO (20:46)
[2019-12-19] MEDS: Lisinopril 20 MG Tablet PO (20:47)
[2019-12-19] MEDS: Montelukast 10 MG Tablet PO (20:48)
[2019-12-19 21:30] LABS: Bedside Glucose 228 mg/dL (70-110)
--- NOTE | 2019-12-19 23:20 | NURSING ---
This nurse has given patient prn xanaflex for spasms in left ankle has leg elevated on a pillow with polar care. Patient asked this nurse to remove the polar care because she felt that it add more pressure to the cast. This nurse offered to put bipap on during this time and she refused has call light within reach.
[2019-12-20] MEDS: HYDROmorphone 2 MG TABLET PO (03:35)
[2019-12-20 04:29] VITALS: BP 140/69; PULSE 60; RESP 18; TEMP 36.8; O2SAT 94
[2019-12-20] MEDS: Polyethylene Glycol 3350 17 GM PACKET PO (04:30)
[2019-12-20] MEDS: Senna/Docusate Sodium 1 Tablet 2 TABLET PO (04:30)
[2019-12-20 04:31] VITALS: BP 140/69; PULSE 60
[2019-12-20] MEDS: Metoprolol(XL)Succ 50 MG Tablet PO (04:31)
[2019-12-20] MEDS: Sucralfate 1 GM Tablet PO ×4 (04:31→21:31)
[2019-12-20] MEDS: amLODIPine 10 MG Tablet PO (04:31)
[2019-12-20] MEDS: Mirabegron 25 MG TAB.ER.24H PO (04:32)
[2019-12-20] MEDS: Furosemide 20 MG Tablet PO (04:32)
[2019-12-20] MEDS: Fluticasone/Salmeterol 232-14 Inhaler 1 PUFF IH ×2 (04:32→18:27)
[2019-12-20] MEDS: APIXABAN 5 MG TABLET PO (04:33)
[2019-12-20] MEDS: busPIRone 15 MG TABLET 30 MG PO ×2 (04:35→18:27)
[2019-12-20] MEDS: Umeclidinium Bromide Inhaler 1 PUFF IH (04:35)
[2019-12-20] MEDS: Nystatin Powder 15gm Bottle 1 APPLIC TOPICAL ×2 (04:36→21:45)
[2019-12-20 06:07] LABS: Anion Gap 1 (5-15); BUN 11 mg/dL (7-18); BUN/Creat Ratio 15.4 RATIO (10-20); Calcium,Total 9.2 mg/dL (8.5-10.1); Chloride 103 mmol/L (98-107); Creatinine, Serum 0.71 mg/dL (0.55-1.02); EST Glomerular Filtration Rate 91 mL/min (>60); Est Glom Filt Rate - Afr Amer 110 mL/min (>60); Estimated Creatinine Clearance 74.93 ml/min; Glucose 97 mg/dL (74-106); Potassium 3.8 mmol/L (3.5-5.1); Sodium Level 138 mmol/L (136-145)
[2019-12-20 06:35] LABS: Bedside Glucose 115 mg/dL (70-110)
[2019-12-20] MEDS: Pregabalin 75 MG Capsule PO ×3 (06:57→21:30)
[2019-12-20 07:50] VITALS: O2SAT 94
[2019-12-20] MEDS: HYDROmorphone 2 MG TABLET 4 MG PO ×4 (08:44→21:41)
--- NOTE | 2019-12-20 10:33 | MDS.RN ---
Resident asked one of her sisters to be notified of care plan meeting next week, voicemail left for Jessica(sister).
[2019-12-20 11:21] LABS: Bedside Glucose 142 mg/dL (70-110)
[2019-12-20] MEDS: Baclofen 10 MG Tablet PO ×2 (13:27→21:31)
[2019-12-20 14:07] VITALS: BP 141/69; PULSE 81; RESP 20; TEMP 36.6; O2SAT 91
--- NOTE | 2019-12-20 14:38 | NURSING ---
dr angeles notified of pt c/o spasms saying tizanidine is not working & dilaudid not controlling pain. new orders for ^ dilaudid, dc zanaflex changed to baclofen.
--- NOTE | 2019-12-20 14:58 | RAD_ITS ---
STUDY: X-RAY - LEFT ANKLE REASON FOR EXAM: Female, 54 years old. ANKLE FX TECHNIQUE: 3 view(s) of the ankle. COMPARISON: Radiographs 12/16/2019. FINDINGS: Cast obscures bone detail. Continued prominently displaced and distracted fractures of the medial malleolus, distal fibula, and posterior tibia. Widened ankle joint with lateral and dorsal displacement of the talus. RAD/Ankle min 3 Views IMPRESSION: Continued displaced fractures/dislocation of the ankle. Electronically Signed: J Carlos Rodgers MD at 15:38 EDT , Service support ,
--- NOTE | 2019-12-20 15:16 | PN_ITS ---
Patient Problems: Active and Suspected Problems (Last Reviewed 12/16/19 @ 21:[address] Jese Strauss, DO) Syncope (Acute) Closed left ankle fracture (Acute) Debility (Acute) Fall (Acute) Subjective: Patient was seen today for follow up on left ankle fracture, she relates it feels like the splint is digging in and ankle is painful. She relates there has been some improvement to the left ankle pain - it is ~25% less than Monday. No complaints of fever, chills, nausea, vomiting or calf pain. - Physical Exam Vitals/I&O's: Vital Signs Temp Pulse Resp BP Pulse Ox 97.8 F 81 20 H 141/69 H 91 12/20/19 14:07 12/20/19 14:07 12/20/19 14:07 12/20/19 14:07 12/20/19 14:07 Oxygen Flow Rate (L/min) 3 Oxygen Delivery Method Nasal Cannula Weight: 113.398 kg Body Mass Index (BMI) 44.2 Finger Stick Blood Glucose 422 Intake and Output for Last 24 Hours 12/18/19 12/19/19 12/20/19 23:59 23:59 23:59 Intake Total 1160 / 1160 720 / 720 Output Total 900 / 900 2350 / 2350 Balance 260 / 260 -1630 / -1630 General: Alert, Oriented x3, Cooperative, No apparent distress Extremities: No cyanosis, Capillary Refill Less than 3 Seconds, No Calf Tenderness, Peripheral Pulses Normal, - - Patient able to move toes, there is no tissue break down noted to the left foot or ankle, no open lesions noted, no erythema, there is ecchymosis c/w her injury. Laboratory Results 12/19/19 13:30: COVID-19 ([facility]) Not Detected 12/19/19 17:07: POC Glucose 221 H 12/19/19 21:10: POC Glucose 228 H 12/20/19 05:10: Sodium 138, Potassium 3.8, Chloride 103, Carbon Dioxide 34.0 H, Anion Gap 1 L, BUN 11, Creatinine 0.71, Estim Creat Clear Calc 74.93, Est GFR (MDRD) Af Amer 110, Est GFR (MDRD) Non-Af 91, BUN/Creatinine Ratio 15.4, Glucose 97, Calcium 9.2 12/20/19 06:15: POC Glucose 115 H 12/20/19 11:01: POC Glucose 142 H Current Medications Albuterol Sulfate (Albuterol 2.5 Mg/3 Ml Vial.Neb.) 2.5 mg INHALATION Q4H PRN PRN PRN Reason: Sob &/Or Wheezing Last Admin: 12/19/19 05:38 Dose: 2.5 mg Documented by: Amlodipine Besylate (Amlodipine 10 Mg Tablet) 10 mg PO DAILY [facility] Last Admin: 12/20/19 04:31 Dose: 10 mg Documented by: Atorvastatin Calcium (Atorvastatin Calcium 80 Mg Tablet) 80 mg PO QHS [facility] Last Admin: 12/19/19 20:44 Dose: 80 mg Documented by: Baclofen (Baclofen 10 Mg Tablet) 10 mg PO TID [facility] Last Admin: 12/20/19 13:27 Dose: 10 mg Documented by: Bisacodyl (Bisacodyl 10 Mg Suppository) 10 mg RECTAL DAILY PRN PRN Reason: Constipation Buspirone HCl (Buspirone 15 Mg Tablet) 30 mg PO BID [facility] Last Admin: 12/20/19 04:35 Dose: 30 mg Documented by: Furosemide (Furosemide 20 Mg Tablet) 20 mg PO DAILY [facility] Last Admin: 12/20/19 04:32 Dose: 20 mg Documented by: Hydromorphone HCl (Hydromorphone 2 Mg Tablet) 4 mg PO Q3H PRN PRN PRN Reason: Pain Score 6-10 Last Admin: 12/20/19 11:58 Dose: 4 mg Documented by: Insulin Glargine (Insulin Glargine 100 Units/Ml Pen) 40 units SC BID [facility] Last Admin: 12/20/19 06:58 Dose: 40 u Documented by: Lactobacillus Acidophilus (Lactobacillus Acidophilus) 2 tablet PO BID [facility] Last Admin: 12/20/19 04:31 Dose: 2 tablet Documented by: Lisinopril (Lisinopril 20 Mg Tablet) 20 mg PO QHS [facility] Last Admin: 12/19/19 20:47 Dose: 20 mg Documented by: Metoprolol Succinate (Metoprolol(Xl)Succ 50 Mg Tablet) 50 mg PO DAILY [facility] Last Admin: 12/20/19 04:31 Dose: 50 mg Documented by: Mirabegron (Mirabegron 25 Mg Tab.Er.24h) 25 mg PO DAILY [facility] Last Admin: 12/20/19 04:32 Dose: 25 mg Documented by: Montelukast Sodium (Montelukast 10 Mg Tablet) 10 mg PO QHS [facility] Last Admin: 12/19/19 20:48 Dose: 10 mg Documented by: Nicotine (Nicotine 21 Mg Patch) 21 mg TRANSDERM. DAILY [facility] Last Admin: 12/20/19 04:34 Dose: 21 mg Documented by: Nitroglycerin (Nitroglycerin (Inpatient Use) 0.4 Mg Tab.Subl) 0.4 mg SUBLINGUAL Q5M PRN PRN Reason: CARDIAC/CHEST PAIN Nystatin (Nystatin Powder 15gm Bottle) 1 applic TOPICAL 0600,2200 [facility]; Protocol Last Admin: 12/20/19 04:36 Dose: 1 applicatio Documented by: Polyethylene Glycol (Polyethylene Glycol 3350 17 Gm Packet) 17 gm PO BID [facility] Last Admin: 12/20/19 04:30 Dose: 17 gm Documented by: Potassium Chloride (Potassium Chloride 10 Meq Tablet) 10 meq PO DAILYCM [facility] Last Admin: 12/20/19 08:15 Dose: 10 meq Documented by: Pregabalin (Pregabalin 75 Mg Capsule) 75 mg PO TID [facility] Last Admin: 12/20/19 13:27 Dose: 75 mg Documented by: Promethazine HCl (Promethazine 25 Mg Tablet) 12.5 - 25 mg PO BID PRN PRN PRN Reason: NAUSEA Risperidone (Risperidone 2 Mg Tablet) 4 mg PO QHS [facility] Last Admin: 12/19/19 20:46 Dose: 4 mg Documented by: Fluticasone/Salmeterol (Fluticasone/Salmeterol 232-14 Inhaler) 1 puff IH BID [facility] Last Admin: 12/20/19 04:32 Dose: 1 puff Documented by: Senna/Docusate Sodium (Senna/Docusate Sodium 1 Tablet) 2 tablet PO BID [facility] Last Admin: 12/20/19 04:30 Dose: 2 tablet Documented by: Sodium Chloride (0.9% Saline Lock 10 Ml Syringe) 10 - 40 ml IV UD PRN PRN Reason: SALINE FLUSH Last Admin: 12/19/19 13:02 Dose: 10 ml Documented by: Sucralfate (Sucralfate 1 Gm Tablet) 1 gm PO 1HR_ACHS [facility] Last Admin: 12/20/19 11:58 Dose: 1 gm Documented by: Tramadol HCl (Tramadol 50 Mg Tablet) 50 mg PO Q6H PRN PRN PRN Reason: Pain Score 1-5 Trazodone HCl (Trazodone 100 Mg Tablet) 200 mg PO QHS [facility] Last Admin: 12/19/19 20:45 Dose: 200 mg Documented by: Tuberculin PPD (Tuberculin,Purif.Prot.Deriv. 50 Tu/Ml Vial) 5 tu ID [id number] Stop: 12/26/19 10:01 Umeclidinium [place] (Umeclidinium [place] Inhaler) 1 puff IH DAILY [facility] Last Admin: 12/20/19 04:35 Dose: 1 puff Documented by: Medical Necessity - Tobacco Use Smoking Status: Former smoker Tobacco Use: Cigarettes Assessment/Plan All Active Problems (Last Reviewed 12/16/19 @ 21:[address] Jese Strauss, DO) Syncope (Acute) Closed left ankle fracture (Acute) Debility (Acute) Fall (Acute) Diarrhea (Resolved) Hypokalemia (Resolved) Left trimalleolar ankle fracture Uncontrolled Diabetes Tobacco use Multiple comorbidities Reviewed left ankle xrays and CT scan. The ankle has been closed reduced in the ER. I did replace medial to lateral splint with extra padding, kept the posterior splint intact. Patient related this felt much more comfortable. We are planning ankle ORIF on Monday afternoon. Patient will need to hold Apixaban 48 hrs prior to surgery, plavix is being held as well. No weightbearing left foot/ankle, keep foot elevated as much as possible. Keep splint clean, dry and intact. Vitamin D lab is low - recommend vitamin D supplementation Recommend tobacco cessation, and proper glucose control to help healing of ankle fracture. Reviewed increased risks of nonhealing and potential complications given patient's multiple comorbidities, including but not limited to tobacco use and uncontrolled diabetes. Podiatry will continue to follow.
[2019-12-20 16:56] LABS: Bedside Glucose 154 mg/dL (70-110)
[2019-12-20] MEDS: RisperiDONE 2 MG Tablet 4 MG PO (21:33)
[2019-12-20] MEDS: traZODone 100 MG Tablet 200 MG PO (21:33)
[2019-12-20] MEDS: Atorvastatin Calcium 80 MG Tablet PO (21:34)
[2019-12-20] MEDS: Montelukast 10 MG Tablet PO (21:35)
[2019-12-20] MEDS: Lisinopril 20 MG Tablet PO (21:35)
[2019-12-20 21:45] VITALS: PULSE 78; RESP 18; O2SAT 95
[2019-12-20 21:52] LABS: Bedside Glucose 214 mg/dL (70-110)
[2019-12-20 23:45] VITALS: PULSE 85; RESP 14; RESP 18; O2SAT 95
[2019-12-21 03:40] VITALS: PULSE 80; RESP 14; RESP 16; O2SAT 96
[2019-12-21 05:00] VITALS: BP 170/75; PULSE 88; RESP 14; TEMP 36.7; O2SAT 97
[2019-12-21 06:27] VITALS: BP 170/75; PULSE 88
[2019-12-21] MEDS: busPIRone 15 MG TABLET 30 MG PO ×2 (06:27→17:29)
[2019-12-21] MEDS: Furosemide 20 MG Tablet PO (06:27)
[2019-12-21] MEDS: Mirabegron 25 MG TAB.ER.24H PO (06:27)
[2019-12-21] MEDS: amLODIPine 10 MG Tablet PO (06:27)
[2019-12-21] MEDS: Metoprolol(XL)Succ 50 MG Tablet PO (06:27)
[2019-12-21] MEDS: Senna/Docusate Sodium 1 Tablet 2 TABLET PO ×2 (06:27→17:29)
[2019-12-21] MEDS: Baclofen 10 MG Tablet PO ×3 (06:28→20:23)
[2019-12-21] MEDS: Nystatin Powder 15gm Bottle 1 APPLIC TOPICAL ×2 (06:29→20:25)
[2019-12-21] MEDS: Polyethylene Glycol 3350 17 GM PACKET PO ×2 (06:29→17:30)
[2019-12-21] MEDS: Pregabalin 75 MG Capsule PO ×3 (06:32→20:30)
[2019-12-21] MEDS: Fluticasone/Salmeterol 232-14 Inhaler 1 PUFF IH ×2 (06:33→17:28)
[2019-12-21] MEDS: Umeclidinium Bromide Inhaler 1 PUFF IH (06:39)
[2019-12-21] MEDS: Sucralfate 1 GM Tablet PO ×4 (06:50→20:23)
[2019-12-21] MEDS: HYDROmorphone 2 MG TABLET 4 MG PO ×4 (08:04→20:21)
[2019-12-21 08:18] LABS: Anion Gap 3 (5-15); BUN 11 mg/dL (7-18); Calcium,Total 9.5 mg/dL (8.5-10.1); Chloride 100 mmol/L (98-107); Creatinine, Serum 0.91 mg/dL (0.55-1.02); EST Glomerular Filtration Rate 68 mL/min (>60); Est Glom Filt Rate - Afr Amer 82 mL/min (>60); Estimated Creatinine Clearance 58.46 ml/min; Glucose 171 mg/dL (74-106); Sodium Level 136 mmol/L (136-145)
[2019-12-21 10:00] VITALS: PULSE 93; RESP 16; O2SAT 92
[2019-12-21 10:11] LABS: Bedside Glucose 202 mg/dL (70-110)
[2019-12-21 10:15] VITALS: O2SAT 92
[2019-12-21] MEDS: traMADol 50 MG Tablet PO (10:29)
[2019-12-21 11:20] LABS: Bedside Glucose 224 mg/dL (70-110)
[2019-12-21 14:10] VITALS: BP 115/71; PULSE 80; RESP 17; TEMP 36.2; O2SAT 90
[2019-12-21 16:46] LABS: Bedside Glucose 212 mg/dL (70-110)
[2019-12-21] MEDS: Atorvastatin Calcium 80 MG Tablet PO (20:23)
[2019-12-21] MEDS: traZODone 100 MG Tablet 200 MG PO (20:24)
[2019-12-21] MEDS: RisperiDONE 2 MG Tablet 4 MG PO (20:25)
[2019-12-21] MEDS: Lisinopril 20 MG Tablet PO (20:26)
[2019-12-21] MEDS: Montelukast 10 MG Tablet PO (20:26)
[2019-12-21 21:30] LABS: Bedside Glucose 222 mg/dL (70-110)
[2019-12-22 02:15] VITALS: PULSE 87; RESP 12; RESP 15; O2SAT 94
[2019-12-22 05:00] VITALS: BP 149/90; PULSE 92; RESP 18; TEMP 36.6; O2SAT 97
[2019-12-22] MEDS: Polyethylene Glycol 3350 17 GM PACKET PO ×2 (06:29→18:15)
[2019-12-22] MEDS: amLODIPine 10 MG Tablet PO (06:32)
[2019-12-22] MEDS: Sucralfate 1 GM Tablet PO ×4 (06:32→21:04)
[2019-12-22] MEDS: Baclofen 10 MG Tablet PO ×3 (06:32→21:04)
[2019-12-22] MEDS: busPIRone 15 MG TABLET 30 MG PO ×2 (06:32→18:16)
[2019-12-22] MEDS: Mirabegron 25 MG TAB.ER.24H PO (06:32)
[2019-12-22] MEDS: Furosemide 20 MG Tablet PO (06:32)
[2019-12-22] MEDS: Senna/Docusate Sodium 1 Tablet 2 TABLET PO ×2 (06:32→18:17)
[2019-12-22 06:35] LABS: Bedside Glucose 196 mg/dL (70-110)
[2019-12-22] MEDS: Nystatin Powder 15gm Bottle 1 APPLIC TOPICAL ×2 (06:35→21:06)
[2019-12-22] MEDS: Umeclidinium Bromide Inhaler 1 PUFF IH (06:38)
[2019-12-22] MEDS: Fluticasone/Salmeterol 232-14 Inhaler 1 PUFF IH ×2 (06:38→18:16)
[2019-12-22 06:42] VITALS: BP 149/90; PULSE 92
[2019-12-22] MEDS: Pregabalin 75 MG Capsule PO ×3 (06:42→21:09)
[2019-12-22] MEDS: Metoprolol(XL)Succ 50 MG Tablet PO (06:42)
[2019-12-22 06:45] LABS: Anion Gap 3 (5-15); BUN 13 mg/dL (7-18); BUN/Creat Ratio 14.3 RATIO (10-20); Calcium,Total 9.3 mg/dL (8.5-10.1); Chloride 100 mmol/L (98-107); Creatinine, Serum 0.91 mg/dL (0.55-1.02); EST Glomerular Filtration Rate 68 mL/min (>60); Est Glom Filt Rate - Afr Amer 83 mL/min (>60); Estimated Creatinine Clearance 58.46 ml/min; Glucose 170 mg/dL (74-106); Potassium 4.5 mmol/L (3.5-5.1); Sodium Level 131 mmol/L (136-145)
[2019-12-22] MEDS: HYDROmorphone 2 MG TABLET 4 MG PO ×3 (10:09→18:40)
[2019-12-22 11:05] LABS: Bedside Glucose 251 mg/dL (70-110)
[2019-12-22 14:18] VITALS: BP 106/50; PULSE 83; RESP 16; TEMP 36.4; O2SAT 95
[2019-12-22 16:50] LABS: Bedside Glucose 194 mg/dL (70-110)
[2019-12-22 19:24] VITALS: PULSE 92; RESP 14; RESP 25; O2SAT 95
[2019-12-22] MEDS: Atorvastatin Calcium 80 MG Tablet PO (21:05)
[2019-12-22] MEDS: traZODone 100 MG Tablet 200 MG PO (21:05)
[2019-12-22] MEDS: RisperiDONE 2 MG Tablet 4 MG PO (21:06)
[2019-12-22] MEDS: Lisinopril 20 MG Tablet PO (21:07)
[2019-12-22] MEDS: Montelukast 10 MG Tablet PO (21:07)
--- NOTE | 2019-12-22 21:15 | NURSING ---
Notified pt time of surgery tomorrow is 1300, advised pt to notify sister, pt states ill call her in the morning, refused to lie down in bed, states i sleep in my recliner all night feet elevated, requested chlorhex wipes from supervisor logging to bath pt this josee and again in am
[2019-12-22 21:46] LABS: Bedside Glucose 290 mg/dL (70-110)
[2019-12-22 22:05] VITALS: PULSE 88; RESP 14; O2SAT 97
[2019-12-23] VITALS (16 sets, daily range): BP systolic 94–143; BP diastolic 57–71; PULSE 72–110; RESP 14–24; TEMP 36.3–38.1; O2SAT 92–99
[2019-12-23] MEDS: busPIRone 15 MG TABLET 30 MG PO (05:06)
[2019-12-23] MEDS: Metoprolol(XL)Succ 50 MG Tablet PO (05:06)
[2019-12-23] MEDS: Pregabalin 75 MG Capsule PO (05:06)
[2019-12-23] MEDS: amLODIPine 10 MG Tablet PO (05:07)
[2019-12-23] MEDS: Umeclidinium Bromide Inhaler 1 PUFF IH (05:10)
[2019-12-23] MEDS: Fluticasone/Salmeterol 232-14 Inhaler 1 PUFF IH (05:10)
[2019-12-23 05:40] LABS: Absolute Neutrophil Count 9.2 X10^3/uL (2.0-7.7); Basophil# 0.09 X10^3/uL; Basophil% 0.7 % (0-1); Eosinophil# 0.16 X10^3/uL; Eosinophils% 1.3 % (0-5); Hematocrit 38.7 % (37-47); Hemoglobin 12.3 g/dL (12.0-15.0); Mean Corp Hgb Conc 31.8 g/dL (32-36); Mean Corpuscular Hgb 30.7 pg (27.0-32.0); Mean Corpuscular Volume 96.5 fL (81-99); Mean Platelet Vol. 10.2 fl (6.2-12.0); Monocyte# 1.27 X10^3/uL; Monocyte% 10.6 % (0-10); NRBC Flagged by Analyzer 0 % (0-5); Neutrophil # 9.23 X10^3/uL (2.7-7.7); Neutrophil % 76.9 % (47-70); Platelet Count 221 K/mm3 (150-450); RBC Distribution Width CV 14.6 % (11.6-14.6); RBC Distribution Width SD 52.1 fl (35.1-43.9); Red Blood Count 4.01 M/mm3 (4.2-5.4)
[2019-12-23 05:53] LABS: Anion Gap 4 (5-15); BUN 15 mg/dL (7-18); BUN/Creat Ratio 16.2 RATIO (10-20); Chloride 100 mmol/L (98-107); Creatinine, Serum 0.93 mg/dL (0.55-1.02); EST Glomerular Filtration Rate 67 mL/min (>60); Est Glom Filt Rate - Afr Amer 81 mL/min (>60); Glucose 206 mg/dL (74-106); Potassium 4.5 mmol/L (3.5-5.1); Sodium Level 134 mmol/L (136-145)
[2019-12-23 06:35] LABS: Bedside Glucose 300 mg/dL (70-110)
[2019-12-23] MEDS: HYDROmorphone 2 MG TABLET 4 MG PO (09:11)
--- NOTE | 2019-12-23 10:48 | NURSING ---
removed nicotine patch from left shoulder due to surgery. disposed of patch in destroyer with rn. nothing in mar to document it. pharmacy aware. applyed 2l of 02 due to pt at 89% ra. pt now at 92%. pt stated to this nurse that she wears 02 at home at 3l.
[2019-12-23 11:21] LABS: Bedside Glucose 186 mg/dL (70-110)
--- NOTE | 2019-12-23 13:35 | NURSING ---
Addendum entered by Khris Chapin 12/23/19 14:13: pt left at 12:15 Original Note: PT LEFT FLOOR BY BED TO SURGERY AT 11:15 AM.
--- NOTE | 2019-12-23 18:45 | NURSING ---
Addendum entered by Breann Astudillo 12/23/19 21:32: 20:09-Patient continues to be lethargic. Arouses to voice after several attempts. RN aware. Addendum entered by Breann Astudillo 12/23/19 21:29: 21:04-Patient continues to be lethargic. Vitals obtained. Patient tachy and elevated temp at this time. PAMELA eagle. Original Note: Patient returned to floor from surgery via bed. Vitals obtained.
[2019-12-23 20:36] LABS: Bedside Glucose 230 mg/dL (70-110)
[2019-12-23] MEDS: Albuterol 2.5 MG/3 ML VIAL.NEB. INHALATION (21:30)
--- NOTE | 2019-12-23 21:45 | NURSING ---
Dr. Monae notified of pt returned from PACU, tachy and temp 100.6 ax, pt lethargic, blood sugar, new orders received for labs, cxr, ua and ivf.
--- NOTE | 2019-12-23 22:13 | RAD_ITS ---
STUDY: X-RAY CHEST REASON FOR EXAM: Female, 54 years old. FEVER AND COUGH TECHNIQUE: PA and lateral views of the chest. COMPARISON: 12/16/2019. FINDINGS: The lungs are clear and expanded. There is no demonstrated pleural abnormality. Normal size heart. Normal mediastinum and alden. Normal visualized pulmonary arteries. Normal visualized aortic arch and descending thoracic aorta. Normal visualized thoracic spine. Normal visualized ribs, clavicles, and shoulders. There is no demonstrated abnormality of the visualized soft tissue structures of the upper abdomen. RAD/Chest PA and Lateral IMPRESSION: Normal x-ray examination of the chest. Electronically Signed: Sharon Reilly MD at 23:46 EDT Tel , Service support ,
[2019-12-23 22:50] LABS: Bedside Glucose 246 mg/dL (70-110)
[2019-12-23 23:14] LABS: Absolute Lymphocyte Count 0.59 X10^3/uL (0.83-4.51); Absolute Neutrophil Count 16.5 X10^3/uL (2.0-7.7); Basophil# 0.07 X10^3/uL; Basophil% 0.4 % (0-1); Eosinophil# 0.04 X10^3/uL; Eosinophils% 0.2 % (0-5); Hematocrit 38.1 % (37-47); Hemoglobin 12.4 g/dL (12.0-15.0); Lymphocyte # 0.59 X10^3/ul (4.0); Lymphocyte % 3.1 % (19-41); Mean Corp Hgb Conc 32.5 g/dL (32-36); Mean Corpuscular Hgb 31.4 pg (27.0-32.0); Mean Corpuscular Volume 96.5 fL (81-99); Monocyte# 2.01 X10^3/uL; Monocyte% 10.4 % (0-10); NRBC Flagged by Analyzer 0 % (0-5); Neutrophil # 16.45 X10^3/uL (2.7-7.7); Neutrophil % 85.4 % (47-70); POSITIVE DIFFERENTIAL YES; Platelet Count 269 K/mm3 (150-450); RBC Distribution Width CV 14.5 % (11.6-14.6); RBC Distribution Width SD 51.5 fl (35.1-43.9); Red Blood Count 3.95 M/mm3 (4.2-5.4); White Blood Count 19.3 K/mm3 (4.4-11.0)
[2019-12-23] MEDS: Lactated Ringers 1,000 ML 75 ML IV (23:25)
[2019-12-23 23:30] LABS: Color, Urine Yellow (Yellow); Glucose, Dipstick Normal (Normal); Ketone-Dipstick Negative (Negative); Leukocyte Esterase-Dipstick Negative /ul (Negative); Nitrite-Dipstick Negative (Negative); Occult Blood-Urine Negative /ul (Negative); Protein-Dipstick Negative (Negative); Urine Bilirubin Dipstick Negative (Negative); Urine Clarity Clear (Clear); Urine Urobilinogen 1 mg/dl (Normal)
[2019-12-23 23:34] LABS: Differential Indicated SCAN CRITERIA MET
[2019-12-24] VITALS (11 sets, daily range): BP systolic 134–161; BP diastolic 66–73; PULSE 93–101; RESP 14–25; TEMP 35.9–38.2; O2SAT 87–98
--- NOTE | 2019-12-24 | NURSING ---
Lab unable to draw blood for BMP, drawn by BIOANALYST, 1st sample hemolyzed, pt had to be redrawn. Attempted by lab again, unable to draw. Drawn by PAMELA Wu ground wood supervisor and sent to lab. Pt pulled up in bed, at this time, arouses and able to state where she is and c/o feeling like she can't breathe. Bipap on and pox 95%. Resp present and assessed.
[2019-12-24 01:06] LABS: Anion Gap 5 (5-15); BUN 12 mg/dL (7-18); BUN/Creat Ratio 13.3 RATIO (10-20); Calcium,Total 9.7 mg/dL (8.5-10.1); Chloride 102 mmol/L (98-107); EST Glomerular Filtration Rate 69 mL/min (>60); Est Glom Filt Rate - Afr Amer 84 mL/min (>60); Estimated Creatinine Clearance 59.11 ml/min; Glucose 214 mg/dL (74-106); Potassium 4.7 mmol/L (3.5-5.1); Sodium Level 135 mmol/L (136-145)
[2019-12-24 01:15] LABS: Differential Comment SCANNED
--- NOTE | 2019-12-24 02:12 | NURSING ---
Addendum entered by Breann Astudillo 12/24/19 02:13: Voicemail left for Sister Casandra at this time. Original Note: Report called to ER at this time.
--- NOTE | 2019-12-24 02:18 | NURSING ---
Addendum entered by Gladys Valles 12/24/19 02:37: Transported to ER via bed, RT accompanied with bipap. Original Note: Dr. Monae notified of lab results, pt still having temp, still lethargic and tachy, order to send to ER.
[2019-12-24] MEDS: Fluticasone/Salmeterol 232-14 Inhaler 1 PUFF IH ×2 (08:41→17:05)
[2019-12-24] MEDS: Umeclidinium Bromide Inhaler 1 PUFF IH (08:43)
[2019-12-24] MEDS: busPIRone 15 MG TABLET 30 MG PO ×2 (08:43→17:03)
[2019-12-24] MEDS: Furosemide 20 MG Tablet PO (08:44)
[2019-12-24] MEDS: Polyethylene Glycol 3350 17 GM PACKET PO ×2 (08:45→17:04)
[2019-12-24] MEDS: Baclofen 10 MG Tablet PO ×3 (08:45→20:20)
[2019-12-24] MEDS: Mirabegron 25 MG TAB.ER.24H PO (08:47)
[2019-12-24] MEDS: Senna/Docusate Sodium 1 Tablet 2 TABLET PO ×2 (08:47→17:05)
[2019-12-24] MEDS: amLODIPine 10 MG Tablet PO (08:47)
[2019-12-24] MEDS: Metoprolol(XL)Succ 50 MG Tablet PO (08:49)
[2019-12-24] MEDS: Sucralfate 1 GM Tablet PO ×4 (08:52→20:19)
[2019-12-24] MEDS: 0.9% Saline Lock 10 ML Syringe IV (08:54)
[2019-12-24] MEDS: Pregabalin 75 MG Capsule PO ×3 (09:01→20:26)
[2019-12-24] MEDS: HYDROmorphone 2 MG TABLET 4 MG PO ×3 (09:02→20:15)
[2019-12-24] MEDS: Nystatin Powder 15gm Bottle 1 APPLIC TOPICAL ×2 (09:12→20:21)
[2019-12-24 09:25] LABS: Bedside Glucose 301 mg/dL (70-110)
--- NOTE | 2019-12-24 09:54 | NURSING ---
PT TALKED TO SISTER THIS MORNING AND STATED THIS NURSE DID NOT HAVE TO CALL HER BACK SENSE PT TALKED TO HER.
[2019-12-24 11:05] LABS: Bedside Glucose 248 mg/dL (70-110)
--- NOTE | 2019-12-24 11:25 | NURSING ---
NICOTINE PATCH APPLIED TO RIGHT POST SHOULDER.
--- NOTE | 2019-12-24 11:51 | CASEMGMT ---
Social Work Discussed code status with pt. Pt requesting DNR-CCA, no intubation. Notified nursing. MOLST form reviewed and placed in chart. Soraya Petersen, QUALITY ASSURANCE SUPERVISOR FINAL REPAIRER WELDING [employer]QU[employer]MENT
[2019-12-24] MEDS: Lactated Ringers 1,000 ML 75 ML IV (12:33)
[2019-12-24 13:06] LABS: Pathologist Review Reviewed
--- NOTE | 2019-12-24 14:56 | PHA.CONS_ITS ---
<MotaWhitney saldivar - Last Filed: 12/24/19 14:56> Progress Note - Pharmacy Subjective: TCU Admission Objective: Allergies amoxicillin Allergy (Verified 12/23/19 12:34) Itching erythromycin base Allergy (Verified 12/23/19 12:34) Unknown methadone Allergy (Verified 12/23/19 12:34) Itching metolazone Allergy (Verified 12/23/19 12:34) Unknown Penicillins Allergy (Verified 12/23/19 12:34) Hives Sulfa (Sulfonamide Antibiotics) Allergy (Verified 12/23/19 12:34) Hives acetaminophen [From Percocet] Adverse Reaction (Verified 12/23/19 12:34) Itching clarithromycin [From Biaxin] Adverse Reaction (Verified 12/23/19 12:34) Nausea ibuprofen Adverse Reaction (Verified 12/23/19 12:34) 3 BLEEDING ULCERS 3 BLEEDING ULCERS morphine Adverse Reaction (Verified 12/23/19 12:34) HEADACHE HEADACHE oxycodone [From Percocet] Adverse Reaction (Verified 12/23/19 12:34) Itching Current Medications Generic Name Dose Route Start Last Admin Trade Name Freq PRN Reason Stop Dose Admin Albuterol Sulfate 2.5 mg 12/18/19 21:04 12/23/19 21:30 Albuterol 2.5 Mg/3 Ml Vial.Neb. INHALATION 2.5 mg Q4H PRN PRN Administration Sob &/Or Wheezing Amlodipine Besylate 10 mg 12/19/19 06:00 12/24/19 08:47 Amlodipine 10 Mg Tablet PO 10 mg DAILY [facility] Administration Apixaban 5 mg 12/24/19 18:00 Apixaban 5 Mg Tablet PO BID [facility] Atorvastatin Calcium 80 mg 12/18/19 22:00 12/24/19 00:17 Atorvastatin Calcium 80 Mg Tablet PO Not Given QHS [facility] Baclofen 10 mg 12/20/19 14:00 12/24/19 13:08 Baclofen 10 Mg Tablet PO 10 mg TID [facility] Administration Bisacodyl 10 mg 12/18/19 21:11 Bisacodyl 10 Mg Suppository RECTAL DAILY PRN Constipation Buspirone HCl 30 mg 12/19/19 06:00 12/24/19 08:43 Buspirone 15 Mg Tablet PO 30 mg BID [facility] Administration Ciprofloxacin HCl 500 mg 12/24/19 18:00 Ciprofloxacin 500 Mg Tablet PO 10/27/20 06:01 BID [facility] Clopidogrel Bisulfate 75 mg 12/25/19 06:00 Clopidogrel Bisulfate 75 Mg Tablet PO DAILY [facility] Furosemide 20 mg 12/19/19 06:00 12/24/19 08:44 Furosemide 20 Mg Tablet PO 20 mg DAILY [facility] Administration Hydromorphone HCl 4 mg 12/20/19 08:02 12/24/19 12:31 Hydromorphone 2 Mg Tablet PO 4 mg Q3H PRN PRN Administration Pain Score 6-10 Clindamycin Phosphate 600 mg/ 54 mls @ 100 mls/hr 12/23/19 21:30 12/24/19 14:16 Dextrose IV 12/24/19 22:03 Infused Q8H [facility] Infusion Lactated Ringer's 1,000 mls @ 75 mls/hr 12/23/19 21:55 12/24/19 12:33 IV 75 mls/hr .[id number] [facility] Administration Insulin Glargine 40 units 12/19/19 06:00 12/24/19 09:21 Insulin Glargine 100 Units/Ml Pen SC 40 u BID [facility] Administration Lactobacillus Acidophilus 2 tablet 12/19/19 06:00 12/24/19 08:43 Lactobacillus Acidophilus PO 2 tablet BID [facility] Administration Lisinopril 20 mg 12/18/19 22:00 12/24/19 00:17 Lisinopril 20 Mg Tablet PO Not Given QHS [facility] Metoprolol Succinate 50 mg 12/18/19 22:00 12/24/19 08:49 Metoprolol(Xl)Succ 50 Mg Tablet PO 50 mg DAILY [facility] Administration Mirabegron 25 mg 12/19/19 06:00 12/24/19 08:47 Mirabegron 25 Mg Tab.Er.24h PO 25 mg DAILY [facility] Administration Montelukast Sodium 10 mg 12/18/19 22:00 12/24/19 00:17 Montelukast 10 Mg Tablet PO Not Given QHS [facility] Nicotine 21 mg 12/19/19 06:00 12/24/19 09:08 Nicotine 21 Mg Patch TRANSDERM. 21 mg DAILY [facility] Administration Nitroglycerin 0.4 mg 12/18/19 21:04 Nitroglycerin (Inpatient Use) 0.4 Mg Tab.Subl SUBLINGUAL Q5M PRN CARDIAC/CHEST PAIN Nystatin 1 applic 12/19/19 06:00 12/24/19 09:12 Nystatin Powder 15gm Bottle TOPICAL 1 applicatio 0600,2200 [facility] Administration Protocol Polyethylene Glycol 17 gm 12/19/19 06:00 12/24/19 08:45 Polyethylene Glycol 3350 17 Gm Packet PO 17 gm BID [facility] Administration Potassium Chloride 10 meq 12/19/19 08:00 12/24/19 08:53 Potassium Chloride 10 Meq Tablet PO 10 meq DAILYCM [facility] Administration Pregabalin 75 mg 12/18/19 22:00 12/24/19 13:10 Pregabalin 75 Mg Capsule PO 75 mg TID [facility] Administration Promethazine HCl 12.5 - 25 mg 12/18/19 21:04 Promethazine 25 Mg Tablet PO BID PRN PRN NAUSEA Risperidone 4 mg 12/18/19 22:00 12/24/19 00:17 Risperidone 2 Mg Tablet PO Not Given QHS [facility] Fluticasone/Salmeterol 1 puff 12/19/19 06:00 12/24/19 08:41 Fluticasone/Salmeterol 232-14 Inhaler IH 1 puff BID [facility] Administration Senna/Docusate Sodium 2 tablet 12/19/19 06:00 12/24/19 08:47 Senna/Docusate Sodium 1 Tablet PO 2 tablet BID [facility] Administration Sodium Chloride 10 - 40 ml 12/18/19 22:44 12/24/19 08:54 0.9% Saline Lock 10 Ml Syringe IV 30 ml UD PRN Administration SALINE FLUSH Sucralfate 1 gm 12/18/19 22:00 12/24/19 11:21 Sucralfate 1 Gm Tablet PO 1 gm 1HR_ACHS [facility] Administration Tramadol HCl 50 mg 12/18/19 21:10 12/21/19 10:29 Tramadol 50 Mg Tablet PO 50 mg Q6H PRN PRN Administration Pain Score 1-5 Trazodone HCl 200 mg 12/18/19 22:00 12/24/19 00:16 Trazodone 100 Mg Tablet PO Not Given QHS [facility] Tuberculin PPD 5 tu 12/26/19 10:00 Tuberculin,Purif.Prot.Deriv. 50 Tu/Ml Vial ID 12/26/19 10:01 X1 ONE Umeclidinium [place] 1 puff 12/19/19 06:00 12/24/19 08:43 Umeclidinium [place] Inhaler IH 1 puff DAILY [facility] Administration Problem List (Last Reviewed 12/16/19 @ 21:[address] Jese Strauss, DO) Pulmonary emboli (Chronic) Syncope (Acute) Closed left ankle fracture (Acute) Debility (Acute) Fall (Acute) Diabetic polyneuropathy (Chronic) Muscle spasm (Chronic) Insomnia (Chronic) Overactive bladder (Chronic) Anxiety (Chronic) Coronary artery disease (Chronic) COPD (chronic obstructive pulmonary disease) (Chronic) Diabetes mellitus (Chronic) HTN (hypertension) (Chronic) Osteoarthritis (Chronic) Schizophrenia (Chronic) Depression (Chronic) Gastroesophageal reflux disease (Chronic) Hyperlipidemia (Chronic) RACHEL (obstructive sleep apnea) (Chronic) Vital Signs Temp Pulse Resp BP Pulse Ox 96.6 F L 95 18 144/71 H 95 12/24/19 13:40 12/24/19 13:40 12/24/19 13:40 12/24/19 13:40 12/24/19 13:40 Oxygen Flow Rate (L/min) 4 Oxygen Delivery Method Nasal Cannula Weight: 113.761 kg Body Mass Index (BMI) 44.2 Finger Stick Blood Glucose 422 Sodium 135 mmol/L (136-145) L 12/24/19 00:35 Potassium 4.7 mmol/L (3.5-5.1) 12/24/19 00:35 Chloride 102 mmol/L (98-107) 12/24/19 00:35 Carbon Dioxide 28.0 mmol/L (21.0-32.0) 12/24/19 00:35 Anion Gap 5 (5-15) 12/24/19 00:35 BUN 12 mg/dL (7-18) 12/24/19 00:35 Creatinine 0.90 mg/dL (0.55-1.02) 12/24/19 00:35 Est GFR (MDRD) Af Amer 84 mL/min (>60) 12/24/19 00:35 Est GFR (MDRD) Non-Af 69 mL/min (>60) 12/24/19 00:35 BUN/Creatinine Ratio 13.3 RATIO (10-20) 12/24/19 00:35 Glucose 214 mg/dL (74-106) H 12/24/19 00:35 Assessment/Plan: 1. Pain: tramadol 50mg PO Q6H PRN pain score 1-5/10 and hydromorphone 4mg PO Q3H PRN pain score 6-10/10. Please continue to monitor for S/S of pain, PRN usage, constipation, and respiratory depression. *2. Hyperlipidemia: atorvastatin 80mg PO QHS. Please consider ordering a lipid panel now and then annually as clinically appropriate. Last lipid panel from 11/21/18. Please monitor for muscle pain. 3. Coronary Artery Disease/Hypertension/PE: metoprolol succinate 50mg PO daily, clopidogrel 75mg PO daily, lisinopril 20mg PO QHS , amlodipine 10mg PO daily, apixaban 5mg PO BID, nitroglycerin 0.4mg SL Q5M PRN cardiac/chest pain. Please continue monitor for S/S of bleeding, dry cough, renal function, potassium (last 4.7mmol/L), HR, BP, and swelling. 4. Hypokalemia : KCl ER 10Meq PO daily. Please continue to monitor potassium (last 4.7mmol/L). 5. Diabetes Mellitus II: insulin glargine 40 units SC BID. Please monitor for S/S of hypoglycemia, blood glucose levels, and hemoglobin A1c (last 11.4%). 6. Diabetic polyneuropathy: pregabalin 75mg PO TID. Please continue to monitor for S/S of neuropathy, renal function, and confusion. 7. Muscle spasm: Baclofen 10mg PO TID. Please continue to monitor for improvement/worsening of muscle spasms. 8. Edema: furosemide 20mg PO daily. Please monitor weight daily, electrolytes, improvement/worsening of swelling and renal function. 9. Overactive bladder: mirabegron 25mg PO daily. Please monitor for improvement/worsening of overactive bladder and anticholinergic side effects. 10. COPD: Advair 1 puff inhaled BID ,Incruse Ellipta 1 puff inhaled daily , Albuterol sulfate 2.5mg inhaled Q4H PRN shortness of breath/wheezing. Please monitor pulmonary function tests, blood glucose, and S/S of COPD/wheezing/SOB. 11. GERD/ GI prophylaxis/ Nausea: Sucralfate 1 gram PO 1 hr ACHS, Lactobacillus 2 tablets PO BID, Phenergan 12.5-25mg PO BID PRN nausea. Please monitor for S/S of nausea, monitor for improvement/worsening of GERD and PRN usage. 12. Allergic rhinitis: montelukast 10mg PO QHS. Please monitor for S/S of allergic rhinitis. 13. Tobacco cessation: Nicotine 21mg transdermally daily. Please monitor for sleep disturbances and application site irritation. 14. Post-op antibiotic/possible infection (blood cultures pending): clindamycin 600mg Q8H x 4 doses (thru 12/23) and ciprofloxacin 500mg PO BID. Please continue to monitor for S/S of infection, blood cultures, and renal function. Psychotropic Medications: 1. Schizophrenia: risperidone 4mg PO QHS. Please see physician note regarding GDR. Please continue to monitor for S/S of worsening schizophrenia, drowsiness, and tardive dyskinesia. *2. Insomnia: trazodone 200mg PO QHS. Please monitor for improvement/ worsening of insomnia. Please consider GDR by 06/2020 if clinically appropriate. Thanks. *3. Anxiety: buspirone 30mg PO BID. Please monitor S/S of anxiety and consider GDR by 06/24 if clinically appropriate. Thanks. Unnecessary Medications: None Bowel Regimen: Miralax 17gm PO BID, senna/docusate 2T PO BID and bisacodyl 10mg DE daily PRN constipation. Please continue to monitor for S/S of diarrhea/constipation and PRN usage. Date of Note:: 12/24/19 - Provider Comments Provider responsibility: Provider responsible to enter orders to implement recommendations <Carlos Monae Chi - Last Filed: 12/24/19 20:18> Progress Note - Pharmacy Subjective: [] Objective: Allergies amoxicillin Allergy (Verified 12/23/19 12:34) Itching erythromycin base Allergy (Verified 12/23/19 12:34) Unknown methadone Allergy (Verified 12/23/19 12:34) Itching metolazone Allergy (Verified 12/23/19 12:34) Unknown Penicillins Allergy (Verified 12/23/19 12:34) Hives Sulfa (Sulfonamide Antibiotics) Allergy (Verified 12/23/19 12:34) Hives acetaminophen [From Percocet] Adverse Reaction (Verified 12/23/19 12:34) Itching clarithromycin [From Biaxin] Adverse Reaction (Verified 12/23/19 12:34) Nausea ibuprofen Adverse Reaction (Verified 12/23/19 12:34) 3 BLEEDING ULCERS 3 BLEEDING ULCERS morphine Adverse Reaction (Verified 12/23/19 12:34) HEADACHE HEADACHE oxycodone [From Percocet] Adverse Reaction (Verified 12/23/19 12:34) Itching Current Medications Generic Name Dose Route Start Last Admin Trade Name Freq PRN Reason Stop Dose Admin Albuterol Sulfate 2.5 mg 12/18/19 21:04 12/23/19 21:30 Albuterol 2.5 Mg/3 Ml Vial.Neb. INHALATION 2.5 mg Q4H PRN PRN Administration Sob &/Or Wheezing Amlodipine Besylate 10 mg 12/19/19 06:00 12/24/19 08:47 Amlodipine 10 Mg Tablet PO 10 mg DAILY [facility] Administration Apixaban 5 mg 12/24/19 18:00 12/24/19 17:04 Apixaban 5 Mg Tablet PO 5 mg BID [facility] Administration Atorvastatin Calcium 80 mg 12/18/19 22:00 12/24/19 00:17 Atorvastatin Calcium 80 Mg Tablet PO Not Given QHS [facility] Baclofen 10 mg 12/20/19 14:00 12/24/19 13:08 Baclofen 10 Mg Tablet PO 10 mg TID [facility] Administration Bisacodyl 10 mg 12/18/19 21:11 Bisacodyl 10 Mg Suppository RECTAL DAILY PRN Constipation Buspirone HCl 30 mg 12/19/19 06:00 12/24/19 17:03 Buspirone 15 Mg Tablet PO 30 mg BID [facility] Administration Ciprofloxacin HCl 500 mg 12/24/19 18:00 12/24/19 17:03 Ciprofloxacin 500 Mg Tablet PO 12/31/19 06:01 500 mg BID [facility] Administration Clopidogrel Bisulfate 75 mg 12/25/19 06:00 Clopidogrel Bisulfate 75 Mg Tablet PO DAILY [facility] Furosemide 20 mg 12/19/19 06:00 12/24/19 08:44 Furosemide 20 Mg Tablet PO 20 mg DAILY [facility] Administration Hydromorphone HCl 4 mg 12/20/19 08:02 12/24/19 12:31 Hydromorphone 2 Mg Tablet PO 4 mg Q3H PRN PRN Administration Pain Score 6-10 Clindamycin Phosphate 600 mg/ 54 mls @ 100 mls/hr 12/23/19 21:30 12/24/19 14:16 Dextrose IV 12/24/19 22:03 Infused Q8H [facility] Infusion Lactated Ringer's 1,000 mls @ 75 mls/hr 12/23/19 21:55 12/24/19 12:33 IV 75 mls/hr .[id number] [facility] Administration Insulin Glargine 40 units 12/19/19 06:00 12/24/19 17:08 Insulin Glargine 100 Units/Ml Pen SC 40 u BID [facility] Administration Lactobacillus Acidophilus 2 tablet 12/19/19 06:00 12/24/19 17:03 Lactobacillus Acidophilus PO 2 tablet BID [facility] Administration Lisinopril 20 mg 12/18/19 22:00 12/24/19 00:17 Lisinopril 20 Mg Tablet PO Not Given QHS [facility] Metoprolol Succinate 50 mg 12/18/19 22:00 12/24/19 08:49 Metoprolol(Xl)Succ 50 Mg Tablet PO 50 mg DAILY [facility] Administration Mirabegron 25 mg 12/19/19 06:00 12/24/19 08:47 Mirabegron 25 Mg Tab.Er.24h PO 25 mg DAILY [facility] Administration Montelukast Sodium 10 mg 12/18/19 22:00 12/24/19 00:17 Montelukast 10 Mg Tablet PO Not Given QHS [facility] Nicotine 21 mg 12/19/19 06:00 12/24/19 09:08 Nicotine 21 Mg Patch TRANSDERM. 21 mg DAILY [facility] Administration Nitroglycerin 0.4 mg 12/18/19 21:04 Nitroglycerin (Inpatient Use) 0.4 Mg Tab.Subl SUBLINGUAL Q5M PRN CARDIAC/CHEST PAIN Nystatin 1 applic 12/19/19 06:00 12/24/19 09:12 Nystatin Powder 15gm Bottle TOPICAL 1 applicatio 0600,2200 [facility] Administration Protocol Polyethylene Glycol 17 gm 12/19/19 06:00 12/24/19 17:04 Polyethylene Glycol 3350 17 Gm Packet PO 17 gm BID [facility] Administration Potassium Chloride 10 meq 12/19/19 08:00 12/24/19 08:53 Potassium Chloride 10 Meq Tablet PO 10 meq DAILYCM [facility] Administration Pregabalin 75 mg 12/18/19 22:00 12/24/19 13:10 Pregabalin 75 Mg Capsule PO 75 mg TID [facility] Administration Promethazine HCl 12.5 - 25 mg 12/18/19 21:04 Promethazine 25 Mg Tablet PO BID PRN PRN NAUSEA Risperidone 4 mg 12/18/19 22:00 12/24/19 00:17 Risperidone 2 Mg Tablet PO Not Given QHS [facility] Fluticasone/Salmeterol 1 puff 12/19/19 06:00 12/24/19 17:05 Fluticasone/Salmeterol 232-14 Inhaler IH 1 puff BID [facility] Administration Senna/Docusate Sodium 2 tablet 12/19/19 06:00 12/24/19 17:05 Senna/Docusate Sodium 1 Tablet PO 2 tablet BID [facility] Administration Sodium Chloride 10 - 40 ml 12/18/19 22:44 12/24/19 08:54 0.9% Saline Lock 10 Ml Syringe IV 30 ml UD PRN Administration SALINE FLUSH Sucralfate 1 gm 12/18/19 22:00 12/24/19 17:03 Sucralfate 1 Gm Tablet PO 1 gm 1HR_ACHS [facility] Administration Tramadol HCl 50 mg 12/18/19 21:10 12/21/19 10:29 Tramadol 50 Mg Tablet PO 50 mg Q6H PRN PRN Administration Pain Score 1-5 Trazodone HCl 200 mg 12/18/19 22:00 12/24/19 00:16 Trazodone 100 Mg Tablet PO Not Given QHS [facility] Tuberculin PPD 5 tu 12/26/19 10:00 Tuberculin,Purif.Prot.Deriv. 50 Tu/Ml Vial ID 12/26/19 10:01 X1 ONE Umeclidinium [place] 1 puff 12/19/19 06:00 12/24/19 08:43 Umeclidinium [place] Inhaler IH 1 puff DAILY [facility] Administration Problem List (Last Reviewed 12/16/19 @ 21:[address] Jsee Strauss, DO) Pulmonary emboli (Chronic) Syncope (Acute) Closed left ankle fracture (Acute) Debility (Acute) Fall (Acute) Diabetic polyneuropathy (Chronic) Muscle spasm (Chronic) Insomnia (Chronic) Overactive bladder (Chronic) Anxiety (Chronic) Coronary artery disease (Chronic) COPD (chronic obstructive pulmonary disease) (Chronic) Diabetes mellitus (Chronic) HTN (hypertension) (Chronic) Osteoarthritis (Chronic) Schizophrenia (Chronic) Depression (Chronic) Gastroesophageal reflux disease (Chronic) Hyperlipidemia (Chronic) RACHEL (obstructive sleep apnea) (Chronic) Vital Signs Temp Pulse Resp BP Pulse Ox 96.6 F L 95 18 144/71 H 95 12/24/19 13:40 12/24/19 13:40 12/24/19 13:40 12/24/19 13:40 12/24/19 13:40 Oxygen Flow Rate (L/min) 4 Oxygen Delivery Method Nasal Cannula Weight: 113.761 kg Body Mass Index (BMI) 44.2 Finger Stick Blood Glucose 422 Sodium 135 mmol/L (136-145) L 12/24/19 00:35 Potassium 4.7 mmol/L (3.5-5.1) 12/24/19 00:35 Chloride 102 mmol/L (98-107) 12/24/19 00:35 Carbon Dioxide 28.0 mmol/L (21.0-32.0) 12/24/19 00:35 Anion Gap 5 (5-15) 12/24/19 00:35 BUN 12 mg/dL (7-18) 12/24/19 00:35 Creatinine 0.90 mg/dL (0.55-1.02) 12/24/19 00:35 Est GFR (MDRD) Af Amer 84 mL/min (>60) 12/24/19 00:35 Est GFR (MDRD) Non-Af 69 mL/min (>60) 12/24/19 00:35 BUN/Creatinine Ratio 13.3 RATIO (-20) 12/24/19 00:35 Glucose 214 mg/dL (74-106) H 12/24/19 00:35 Assessment/Plan: Psychotropic Medications: Unnecessary Medications: Bowel Regimen: - Provider Comments Provider responsibility: Provider responsible to enter orders to implement recommendations Provider Comments to Recommendations by Pharmacy: Agree
[2019-12-24 16:36] LABS: Bedside Glucose 188 mg/dL (70-110)
[2019-12-24] MEDS: Ciprofloxacin 500 MG Tablet PO (17:03)
[2019-12-24] MEDS: APIXABAN 5 MG TABLET PO (17:04)
--- NOTE | 2019-12-24 20:12 | PN_ITS ---
Patient Problems: Active and Suspected Problems (Last Reviewed 12/16/19 @ 21:[address] Jese Strauss, DO) Syncope (Acute) Closed left ankle fracture (Acute) Debility (Acute) Fall (Acute) Subjective: Patient was seen today for follow up on left ankle ORIF. She relates ankle is painful, but feeling a little better, pain medication does provide some relief. She is sitting up in chair, relates she was worried about putting weight on left foot when having to get up to go to the bathroom. No complaints of fever, chills, nausea or vomiting. - Physical Exam Vitals/I&O's: Vital Signs Temp Pulse Resp BP Pulse Ox 96.6 F L 95 18 144/71 H 95 12/24/19 13:40 12/24/19 13:40 12/24/19 13:40 12/24/19 13:40 12/24/19 13:40 Oxygen Flow Rate (L/min) 4 Oxygen Delivery Method Nasal Cannula Weight: 113.761 kg Body Mass Index (BMI) 44.2 Finger Stick Blood Glucose 422 Intake and Output for Last 24 Hours 12/22/19 12/23/19 12/24/19 23:59 23:59 23:59 Intake Total 840 / 840 294 / 294 1509.25 / 1509.25 Output Total 500 / 500 Balance 340 / 340 294 / 294 1509.25 / 1509.25 General: Alert, Oriented x3, Cooperative, No apparent distress Extremities: Capillary Refill Less than 3 Seconds, No Calf Tenderness, - - Splint/dressing left foot/ankle/leg is clean, dry and intact. CFT < 2 seconds to all toes, able to move toes, and sensation is intact to the toes left foot. She has no complaints of left heel pain. Laboratory Results 12/23/19 20:30: POC Glucose 230 H 12/23/19 22:45: POC Glucose 246 H 12/23/19 23:00: WBC 19.3 H, RBC 3.95 L, Hgb 12.4, Hct 38.1, MCV 96.5, MCH 31.4, MCHC 32.5, RDW Std Deviation 51.5 H, RDW Coeff of Kayce[place] 14.5, Plt Count 269, MPV 11.0, Immature Gran % (Auto) 0.500, Neut % (Auto) 85.4 H, Lymph % (Auto) 3.1 L, [place] % (Auto) 10.4 H, Eos % (Auto) 0.2, Baso % (Auto) 0.4, Absolute Neuts (auto) 16.5 H, Absolute Lymphs (auto) 0.59 L, Nucleated RBC % 0, Differential Comment SCANNED, Diff Path Review Reviewed 12/23/19 23:00: Sodium Cancelled, Potassium Cancelled, Chloride Cancelled, Carbon Dioxide Cancelled, Anion Gap Cancelled, BUN Cancelled, Creatinine Cancelled, Estim Creat Clear Calc Cancelled, Est GFR (MDRD) Af Amer Cancelled, Est GFR (MDRD) Non-Af Cancelled, BUN/Creatinine Ratio Cancelled, Glucose Cancelled, Calcium Cancelled 12/23/19 23:00: Urine Color Yellow, Urine Clarity Clear, Urine pH 7.0, Ur Specific [place] 1.010, Urine Protein Negative, Urine Glucose (UA) Normal, Urine Ketones Negative, Urine Occult Blood Negative, Urine Nitrite Negative, Urine Bilirubin Negative, Urine Urobilinogen 1 H, Ur Leukocyte Esterase Negative 12/24/19 00:35: Sodium 135 L, Potassium 4.7, Chloride 102, Carbon Dioxide 28.0, Anion Gap 5, BUN 12, Creatinine 0.90, Estim Creat Clear Calc 59.11, Est GFR (MDRD) Af Amer 84, Est GFR (MDRD) Non-Af 69, BUN/Creatinine Ratio 13.3, Glucose 214 H, Calcium 9.7 12/24/19 09:20: POC Glucose 301 H 12/24/19 10:51: POC Glucose 248 H 12/24/19 16:20: POC Glucose 188 H Current Medications Albuterol Sulfate (Albuterol 2.5 Mg/3 Ml Vial.Neb.) 2.5 mg INHALATION Q4H PRN PRN PRN Reason: Sob &/Or Wheezing Last Admin: 12/23/19 21:30 Dose: 2.5 mg Documented by: Amlodipine Besylate (Amlodipine 10 Mg Tablet) 10 mg PO DAILY [facility] Last Admin: 12/24/19 08:47 Dose: 10 mg Documented by: Apixaban (Apixaban 5 Mg Tablet) 5 mg PO BID [facility] Last Admin: 12/24/19 17:04 Dose: 5 mg Documented by: Atorvastatin Calcium (Atorvastatin Calcium 80 Mg Tablet) 80 mg PO QHS [facility] Last Admin: 12/24/19 00:17 Dose: Not Given Documented by: Baclofen (Baclofen 10 Mg Tablet) 10 mg PO TID [facility] Last Admin: 12/24/19 13:08 Dose: 10 mg Documented by: Bisacodyl (Bisacodyl 10 Mg Suppository) 10 mg RECTAL DAILY PRN PRN Reason: Constipation Buspirone HCl (Buspirone 15 Mg Tablet) 30 mg PO BID [facility] Last Admin: 12/24/19 17:03 Dose: 30 mg Documented by: Ciprofloxacin HCl (Ciprofloxacin 500 Mg Tablet) 500 mg PO BID [facility] Stop: 12/31/19 06:01 Last Admin: 12/24/19 17:03 Dose: 500 mg Documented by: Clopidogrel Bisulfate (Clopidogrel Bisulfate 75 Mg Tablet) 75 mg PO DAILY [facility] Furosemide (Furosemide 20 Mg Tablet) 20 mg PO DAILY [facility] Last Admin: 12/24/19 08:44 Dose: 20 mg Documented by: Hydromorphone HCl (Hydromorphone 2 Mg Tablet) 4 mg PO Q3H PRN PRN PRN Reason: Pain Score 6-10 Last Admin: 12/24/19 12:31 Dose: 4 mg Documented by: Clindamycin Phosphate 600 mg/ (Dextrose) 54 mls @ 100 mls/hr IV Q8H [facility] Stop: 12/24/19 22:03 Last Infusion: 12/24/19 14:16 Dose: Infused Documented by: Lactated Ringer's () 1,000 mls @ 75 mls/hr IV .[id number] [facility] Last Admin: 12/24/19 12:33 Dose: 75 mls/hr Documented by: Insulin Glargine (Insulin Glargine 100 Units/Ml Pen) 40 units SC BID [facility] Last Admin: 12/24/19 17:08 Dose: 40 u Documented by: Lactobacillus Acidophilus (Lactobacillus Acidophilus) 2 tablet PO BID [facility] Last Admin: 12/24/19 17:03 Dose: 2 tablet Documented by: Lisinopril (Lisinopril 20 Mg Tablet) 20 mg PO QHS [facility] Last Admin: 12/24/19 00:17 Dose: Not Given Documented by: Metoprolol Succinate (Metoprolol(Xl)Succ 50 Mg Tablet) 50 mg PO DAILY [facility] Last Admin: 12/24/19 08:49 Dose: 50 mg Documented by: Mirabegron (Mirabegron 25 Mg Tab.Er.24h) 25 mg PO DAILY [facility] Last Admin: 12/24/19 08:47 Dose: 25 mg Documented by: Montelukast Sodium (Montelukast 10 Mg Tablet) 10 mg PO QHS [facility] Last Admin: 12/24/19 00:17 Dose: Not Given Documented by: Nicotine (Nicotine 21 Mg Patch) 21 mg TRANSDERM. DAILY [facility] Last Admin: 12/24/19 09:08 Dose: 21 mg Documented by: Nitroglycerin (Nitroglycerin (Inpatient Use) 0.4 Mg Tab.Subl) 0.4 mg SUBLINGUAL Q5M PRN PRN Reason: CARDIAC/CHEST PAIN Nystatin (Nystatin Powder 15gm Bottle) 1 applic TOPICAL 0600,2200 [facility]; Protocol Last Admin: 12/24/19 09:12 Dose: 1 applicatio Documented by: Polyethylene Glycol (Polyethylene Glycol 3350 17 Gm Packet) 17 gm PO BID [facility] Last Admin: 12/24/19 17:04 Dose: 17 gm Documented by: Potassium Chloride (Potassium Chloride 10 Meq [facility]) [facility] Admin: 12/24/19 08:53 Dose: 10 meq Documented by: Pregabalin (Pregabalin 75 Mg Capsule) 75 mg PO TID [facility] Last Admin: 12/24/19 13:10 Dose: 75 mg Documented by: Promethazine HCl (Promethazine 25 Mg Tablet) 12.5 - 25 mg PO BID PRN PRN PRN Reason: NAUSEA Risperidone (Risperidone 2 Mg Tablet) 4 mg PO QHS [facility] Last Admin: 12/24/19 00:17 Dose: Not Given Documented by: Fluticasone/Salmeterol (Fluticasone/Salmeterol 232-14 Inhaler) 1 puff IH BID [facility] Last Admin: 12/24/19 17:05 Dose: 1 puff Documented by: Senna/Docusate Sodium (Senna/Docusate Sodium 1 Tablet) 2 tablet PO BID [facility] Last Admin: 12/24/19 17:05 Dose: 2 tablet Documented by: Sodium Chloride (0.9% Saline Lock 10 Ml Syringe) 10 - 40 ml IV UD PRN PRN Reason: SALINE FLUSH Last Admin: 12/24/19 08:54 Dose: 30 ml Documented by: Sucralfate (Sucralfate 1 Gm Tablet) 1 gm PO 1HR_ACHS [facility] Last Admin: 12/24/19 17:03 Dose: 1 gm Documented by: Tramadol HCl (Tramadol 50 Mg Tablet) 50 mg PO Q6H PRN PRN PRN Reason: Pain Score 1-5 Last Admin: 12/21/19 10:29 Dose: 50 mg Documented by: Trazodone HCl (Trazodone 100 Mg Tablet) 200 mg PO QHS [facility] Last Admin: 12/24/19 00:16 Dose: Not Given Documented by: Tuberculin PPD (Tuberculin,Purif.Prot.Deriv. 50 Tu/Ml Vial) 5 tu ID [id number] Stop: 12/26/19 10:01 Umeclidinium [place] (Umeclidinium [place] Inhaler) 1 puff IH DAILY [facility] Last Admin: 12/24/19 08:43 Dose: 1 puff Documented by: Medical Necessity - Tobacco Use Smoking Status: Current every day smoker Tobacco Use: Cigarettes Assessment/Plan All Active Problems (Last Reviewed 12/16/19 @ 21:[address] Jese Strauss, DO) Syncope (Acute) Closed left ankle fracture (Acute) Debility (Acute) Fall (Acute) UTI (urinary tract infection) (Acute) Diarrhea (Resolved) Hypokalemia (Resolved) Left trimalleolar ankle fracture/Charcot neuroarthropathy s/p ORIF on 12/23/2019 Uncontrolled Diabetes Tobacco use Multiple comorbidities Continue with pain management for post op pain control. Completing course of antibiotic prophylaxis with Clindamycin. Strict nonweightbearing left foot/ankle, keep foot elevated. Keep left heel o ffloaded with pillow. Keep splint clean, dry and intact. Vitamin D lab is low - recommend vitamin D supplementation, 2000 units daily. Recommend tobacco cessation, and proper glucose control to help healing of ankle fracture. Reviewed increased risks of nonhealing and potential complications given patient's multiple comorbidities, including but not limited to tobacco use and uncontrolled diabetes. Podiatry will continue to follow.
[2019-12-24] MEDS: traZODone 100 MG Tablet 200 MG PO (20:19)
[2019-12-24] MEDS: RisperiDONE 2 MG Tablet 4 MG PO (20:20)
[2019-12-24] MEDS: Atorvastatin Calcium 80 MG Tablet PO (20:20)
[2019-12-24] MEDS: Montelukast 10 MG Tablet PO (20:22)
[2019-12-24] MEDS: Lisinopril 20 MG Tablet PO (20:22)
[2019-12-24 21:21] LABS: Bedside Glucose 214 mg/dL (70-110)
[2019-12-25] MEDS: Lactated Ringers 1,000 ML 75 ML IV (02:24)
[2019-12-25 05:00] VITALS: BP 144/66; PULSE 98; RESP 18; TEMP 37.3; O2SAT 90
[2019-12-25] MEDS: Pregabalin 75 MG Capsule PO ×3 (05:50→22:00)
[2019-12-25] MEDS: HYDROmorphone 2 MG TABLET 4 MG PO ×4 (05:50→22:01)
[2019-12-25] MEDS: busPIRone 15 MG TABLET 30 MG PO ×2 (05:51→18:07)
[2019-12-25] MEDS: Clopidogrel Bisulfate 75 MG Tablet PO (05:51)
[2019-12-25] MEDS: Mirabegron 25 MG TAB.ER.24H PO (05:52)
[2019-12-25] MEDS: Furosemide 20 MG Tablet PO (05:52)
[2019-12-25] MEDS: Senna/Docusate Sodium 1 Tablet 2 TABLET PO ×2 (05:52→18:08)
[2019-12-25] MEDS: Ciprofloxacin 500 MG Tablet PO ×2 (05:52→18:07)
[2019-12-25] MEDS: amLODIPine 10 MG Tablet PO (05:52)
[2019-12-25] MEDS: APIXABAN 5 MG TABLET PO ×2 (05:53→18:07)
[2019-12-25] MEDS: Baclofen 10 MG Tablet PO ×3 (05:53→22:04)
[2019-12-25] MEDS: Sucralfate 1 GM Tablet PO ×4 (05:53→22:04)
[2019-12-25] MEDS: Nystatin Powder 15gm Bottle 1 APPLIC TOPICAL ×2 (05:56→22:14)
[2019-12-25] MEDS: Umeclidinium Bromide Inhaler 1 PUFF IH (05:57)
[2019-12-25] MEDS: Fluticasone/Salmeterol 232-14 Inhaler 1 PUFF IH ×2 (05:57→18:07)
[2019-12-25 06:05] VITALS: BP 144/66; PULSE 98
[2019-12-25] MEDS: Metoprolol(XL)Succ 50 MG Tablet PO (06:05)
[2019-12-25 06:31] LABS: Bedside Glucose 114 mg/dL (70-110)
[2019-12-25 07:39] VITALS: O2SAT 90
[2019-12-25 10:00] VITALS: PULSE 100; RESP 18; O2SAT 93
[2019-12-25 11:15] LABS: Bedside Glucose 115 mg/dL (70-110)
[2019-12-25] MEDS: Glucerna Shake 120 ML LIQUID PO ×3 (11:17→22:05)
--- NOTE | 2019-12-25 14:27 | CASEMGMT ---
Social Work IDT met with patient and sister via conference call for care plan meeting. Discussed patient's progress in therapy. Pt is Ted for bed moblity, minAx2 for SPT with FWW, not ambulating at this time due to NWBS LLE. Pt is Ted for UE ADLs, mod/max for LE ADLs, Ted x2 for SPT, dependent for clothing/pericare. Pt is on an 1800 calorie diet, intake fair. Pt is out of isolation 12/31. Explained [facility] insurance with NRD 12/24 and continued stay is not guaranteed. Pt lives at home alone, having trouble bathing prior, aide comes in 4 hrs once a week for housekeeping, laundry and meal prep. Pt does smoke, wears O2 at home, but does not wear bipap. Pt requesting tub bench and [facility] resources at [place]. Pt inquiring about transferring to a SNF that allows smoking. SW provided pt with SNF list of in network with [facility] and takes smoking, which are two facilities. However, the facilities are not allowing smoking until pt is out of 14 day isolation, which pt would need to restart once transferred. Explained all to pt, and pt would like to remain in TCU. Pt is anxious to go home, but SW discussed pt needs to be safe to return and currently, she needs too much assistance to return home alone safely. Pt understood and agreeable to remain. Will continue to follow. Soraya Petersen, MURPHY SENIOR ABAP DEVELOPER
[2019-12-25 16:00] VITALS: BP 100/52; PULSE 86; RESP 16; TEMP 36.3; O2SAT 96
[2019-12-25 17:05] LABS: Bedside Glucose 149 mg/dL (70-110)
[2019-12-25] MEDS: 0.9% Saline Lock 10 ML Syringe IV (21:55)
[2019-12-25] MEDS: Montelukast 10 MG Tablet PO (22:04)
[2019-12-25] MEDS: Atorvastatin Calcium 80 MG Tablet PO (22:05)
[2019-12-25] MEDS: traZODone 100 MG Tablet 200 MG PO (22:05)
[2019-12-25] MEDS: RisperiDONE 2 MG Tablet 4 MG PO (22:08)
[2019-12-25] MEDS: Lisinopril 20 MG Tablet PO (22:09)
[2019-12-25 22:15] LABS: Bedside Glucose 187 mg/dL (70-110)
[2019-12-26 05:00] VITALS: BP 151/96; PULSE 95; RESP 18; TEMP 36.9; O2SAT 93
[2019-12-26 06:03] LABS: Absolute Lymphocyte Count 1.04 X10^3/uL (0.83-4.51); Absolute Neutrophil Count 9.9 X10^3/uL (2.0-7.7); Basophil# 0.06 X10^3/uL; Basophil% 0.5 % (0-1); Eosinophils% 1.6 % (0-5); Hemoglobin 10.2 g/dL (12.0-15.0); Lymphocyte # 1.04 X10^3/ul (4.0); Lymphocyte % 8.2 % (19-41); Mean Corp Hgb Conc 31.9 g/dL (32-36); Mean Corpuscular Hgb 30.4 pg (27.0-32.0); Mean Corpuscular Volume 95.5 fL (81-99); Mean Platelet Vol. 10.3 fl (6.2-12.0); Monocyte# 1.39 X10^3/uL; NRBC Flagged by Analyzer 0 % (0-5); Neutrophil # 9.93 X10^3/uL (2.7-7.7); Neutrophil % 78.3 % (47-70); Platelet Count 248 K/mm3 (150-450); RBC Distribution Width CV 14.2 % (11.6-14.6); RBC Distribution Width SD 50.1 fl (35.1-43.9); Red Blood Count 3.35 M/mm3 (4.2-5.4); White Blood Count 12.7 K/mm3 (4.4-11.0)
[2019-12-26 06:26] LABS: Bedside Glucose 117 mg/dL (70-110)
[2019-12-26 06:28] VITALS: O2SAT 94
[2019-12-26] MEDS: Polyethylene Glycol 3350 17 GM PACKET PO (07:01)
[2019-12-26] MEDS: Pregabalin 75 MG Capsule PO ×3 (07:01→21:21)
[2019-12-26 07:02] VITALS: BP 151/96; PULSE 95
[2019-12-26] MEDS: Metoprolol(XL)Succ 50 MG Tablet PO (07:02)
[2019-12-26] MEDS: busPIRone 15 MG TABLET 30 MG PO ×2 (07:02→16:52)
[2019-12-26] MEDS: APIXABAN 5 MG TABLET PO ×2 (07:02→16:54)
[2019-12-26] MEDS: Clopidogrel Bisulfate 75 MG Tablet PO (07:02)
[2019-12-26] MEDS: Mirabegron 25 MG TAB.ER.24H PO (07:02)
[2019-12-26] MEDS: Baclofen 10 MG Tablet PO ×3 (07:03→21:25)
[2019-12-26] MEDS: Ciprofloxacin 500 MG Tablet PO ×2 (07:03→16:53)
[2019-12-26] MEDS: Sucralfate 1 GM Tablet PO ×4 (07:03→21:23)
[2019-12-26] MEDS: Furosemide 20 MG Tablet PO (07:03)
[2019-12-26] MEDS: Senna/Docusate Sodium 1 Tablet 2 TABLET PO ×2 (07:03→16:54)
[2019-12-26] MEDS: amLODIPine 10 MG Tablet PO (07:04)
[2019-12-26] MEDS: Fluticasone/Salmeterol 232-14 Inhaler 1 PUFF IH ×2 (07:06→17:06)
[2019-12-26] MEDS: Umeclidinium Bromide Inhaler 1 PUFF IH (07:06)
[2019-12-26] MEDS: Nystatin Powder 15gm Bottle 1 APPLIC TOPICAL ×2 (07:07→21:31)
[2019-12-26] MEDS: HYDROmorphone 2 MG TABLET 4 MG PO ×4 (08:11→21:21)
[2019-12-26 10:00] VITALS: PULSE 95; RESP 18; O2SAT 93
[2019-12-26 11:11] LABS: Bedside Glucose 193 mg/dL (70-110)
[2019-12-26] MEDS: Glucerna Shake 120 ML LIQUID PO ×3 (11:18→21:30)
[2019-12-26] MEDS: Tuberculin,Purif.prot.deriv. 50 TU/ML Vial 5 ML ID (11:42)
[2019-12-26 13:23] VITALS: BP 135/59; PULSE 89; RESP 16; TEMP 37; O2SAT 95
--- NOTE | 2019-12-26 14:44 | NURSING ---
pt does not keep left leg elevated at times and have to remind pt to keep it up with also pillow under leg so heel does not touch. rn aware.
[2019-12-26 16:51] LABS: Bedside Glucose 215 mg/dL (70-110)
[2019-12-26] MEDS: Montelukast 10 MG Tablet PO (21:25)
[2019-12-26] MEDS: Lisinopril 20 MG Tablet PO (21:25)
[2019-12-26] MEDS: traZODone 100 MG Tablet 200 MG PO (21:25)
[2019-12-26] MEDS: RisperiDONE 2 MG Tablet 4 MG PO (21:26)
[2019-12-26] MEDS: Atorvastatin Calcium 80 MG Tablet PO (21:26)
[2019-12-26 21:55] LABS: Bedside Glucose 203 mg/dL (70-110)
[2019-12-27] VITALS (7 sets, daily range): BP systolic 104–127; BP diastolic 66–83; PULSE 74–89; RESP 14–21; TEMP 36.7–36.9; O2SAT 92–97
[2019-12-27] MEDS: Pregabalin 75 MG Capsule PO ×3 (06:22→21:49)
[2019-12-27] MEDS: Polyethylene Glycol 3350 17 GM PACKET PO ×2 (06:22→16:59)
[2019-12-27] MEDS: Baclofen 10 MG Tablet PO ×3 (06:23→21:40)
[2019-12-27] MEDS: Clopidogrel Bisulfate 75 MG Tablet PO (06:23)
[2019-12-27] MEDS: Metoprolol(XL)Succ 50 MG Tablet PO (06:23)
[2019-12-27] MEDS: Sucralfate 1 GM Tablet PO ×4 (06:24→21:40)
[2019-12-27] MEDS: amLODIPine 10 MG Tablet PO (06:24)
[2019-12-27] MEDS: busPIRone 15 MG TABLET 30 MG PO ×2 (06:24→16:59)
[2019-12-27] MEDS: Mirabegron 25 MG TAB.ER.24H PO (06:24)
[2019-12-27] MEDS: APIXABAN 5 MG TABLET PO ×2 (06:24→16:59)
[2019-12-27] MEDS: Senna/Docusate Sodium 1 Tablet 2 TABLET PO ×2 (06:25→16:59)
[2019-12-27] MEDS: Ciprofloxacin 500 MG Tablet PO ×2 (06:25→16:59)
[2019-12-27] MEDS: Fluticasone/Salmeterol 232-14 Inhaler 1 PUFF IH ×2 (06:26→16:59)
[2019-12-27] MEDS: Glucerna Shake 120 ML LIQUID PO ×4 (06:26→21:49)
[2019-12-27] MEDS: Umeclidinium Bromide Inhaler 1 PUFF IH (06:26)
[2019-12-27] MEDS: Menthol/Lanolin/Calamine/Znox 113 GM Tube 1 APPLIC TOPICAL ×2 (06:27→17:00)
[2019-12-27] MEDS: Furosemide 20 MG Tablet PO (06:28)
[2019-12-27 06:30] LABS: Bedside Glucose 123 mg/dL (70-110)
[2019-12-27] MEDS: Nystatin Powder 15gm Bottle 1 APPLIC TOPICAL ×2 (06:36→21:50)
[2019-12-27] MEDS: HYDROmorphone 2 MG TABLET 4 MG PO ×5 (07:03→21:36)
[2019-12-27] MEDS: 0.9% Saline Lock 10 ML Syringe IV (07:05)
--- NOTE | 2019-12-27 07:28 | PN_ITS ---
Patient Problems: Active and Suspected Problems (Last Reviewed 12/16/19 @ 21:[address] Jese Strauss, DO) Syncope (Acute) Closed left ankle fracture (Acute) Debility (Acute) Fall (Acute) Subjective: Patient seen and examined bedside s/p left ankle ORIF. Patient complains of some right ankle pain that is not well controlled by medications. Patient denies N/F/V/C/CP/SOB/calf pain. Patient states that she feels her foot is turned in and pointed. She also relates some numbness to her toes. - Physical Exam Vitals/I&O's: Vital Signs Temp Pulse Resp BP Pulse Ox 98.5 F 77 16 104/66 95 12/27/19 05:00 12/27/19 06:23 12/27/19 05:00 12/27/19 06:23 12/27/19 03:28 Oxygen Flow Rate (L/min) 3 Oxygen Delivery Method Bi-pap Weight: 113.761 kg Body Mass Index (BMI) 44.2 Finger Stick Blood Glucose 422 Intake and Output for Last 24 Hours 12/25/19 12/26/19 12/27/19 23:59 23:59 23:59 Intake Total 2350.25 / 2350.25 620 / 620 Output Total 650 / 650 550 / 550 Balance 1700.25 / 1700.25 620 / 620 -550 / -550 General: Alert, Oriented x3, Cooperative HEENT: Atraumatic Extremities: No clubbing, No cyanosis, Edema, Peripheral Pulses Normal, Tenderness, - - lateral incision noted with mild maceration and dark discoloration centrally. Sutures are intact to medial and lateral ankle with skin well coapted. CFT <3 seconds along incisions and toes. Edema noted to foot and leg. DP/PT pulses normal. Mild ecchymosis noted. Skin: Incision Musculoskeletal: Tenderness, - - able to wiggle toes without pain. Epicritic sensation intact to toes and to dorsal, medial, plantar, and lateral foot Neurological: Sensory exam intact to light touch and pain Psych/Mental Status: Normal Affect, Appropriate Microbiology Past 72 Hours 12/23/19 22:47 Blood Culture (Wb) - Left Hand Blood Culture - Preliminary No growth in 48 hours. 12/23/19 23:00 Blood Culture (Wb) - No Site/Description Given Blood Culture - Preliminary No growth in 48 hours. Laboratory Results 12/26/19 11:04: POC Glucose 193 H 12/26/19 16:32: POC Glucose 215 H 12/26/19 21:38: POC Glucose 203 H 12/27/19 06:25: POC Glucose 123 H Current Medications Albuterol Sulfate (Albuterol 2.5 Mg/3 Ml Vial.Neb.) 2.5 mg INHALATION Q4H PRN PRN PRN Reason: Sob &/Or Wheezing Last Admin: 12/23/19 21:30 Dose: 2.5 mg Documented by: Amlodipine Besylate (Amlodipine 10 Mg Tablet) 10 mg PO DAILY [facility] Last Admin: 12/27/19 06:24 Dose: 10 mg Documented by: Apixaban (Apixaban 5 Mg Tablet) 5 mg PO BID [facility] Last Admin: 12/27/19 06:24 Dose: 5 mg Documented by: Atorvastatin Calcium (Atorvastatin Calcium 80 Mg Tablet) 80 mg PO QHS [facility] Last Admin: 12/26/19 21:26 Dose: 80 mg Documented by: Baclofen (Baclofen 10 Mg Tablet) 10 mg PO TID [facility] Last Admin: 12/27/19 06:23 Dose: 10 mg Documented by: Bisacodyl (Bisacodyl 10 Mg Suppository) 10 mg RECTAL DAILY PRN PRN Reason: Constipation Buspirone HCl (Buspirone 15 Mg Tablet) 30 mg PO BID [facility] Last Admin: 12/27/19 06:24 Dose: 30 mg Documented by: Calamine/Phenol (Menthol/Lanolin/Calamine/Znox 113 Gm Tube) 1 applic TOPICAL BID [facility]; Protocol Last Admin: 12/27/19 06:27 Dose: 1 applicatio Documented by: Cholecalciferol (Cholecalciferol (Vit D3) 1,000 Unit (25mcg)) 2,000 unit PO DAILYCM [facility] Last Admin: 12/26/19 08:07 Dose: 2,000 unit Documented by: Ciprofloxacin HCl (Ciprofloxacin 500 Mg Tablet) 500 mg PO BID [facility] Stop: 12/31/19 06:01 Last Admin: 12/27/19 06:25 Dose: 500 mg Documented by: Clopidogrel Bisulfate (Clopidogrel Bisulfate 75 Mg Tablet) 75 mg PO DAILY [facility] Last Admin: 12/27/19 06:23 Dose: 75 mg Documented by: Furosemide (Furosemide 20 Mg Tablet) 20 mg PO DAILY [facility] Last Admin: 12/27/19 06:28 Dose: 20 mg Documented by: Hydromorphone HCl (Hydromorphone 2 Mg Tablet) 4 mg PO Q3H PRN PRN PRN Reason: Pain Score 6-10 Last Admin: 12/27/19 07:03 Dose: 4 mg Documented by: Insulin Glargine (Insulin Glargine 100 Units/Ml Pen) 40 units SC BID [facility] Last Admin: 12/27/19 06:26 Dose: 40 u Documented by: Lactobacillus Acidophilus (Lactobacillus Acidophilus) 2 tablet PO BID [facility] Last Admin: 12/27/19 06:25 Dose: 2 tablet Documented by: Lisinopril (Lisinopril 20 Mg Tablet) 20 mg PO QHS [facility] Last Admin: 12/26/19 21:25 Dose: 20 mg Documented by: Metoprolol Succinate (Metoprolol(Xl)Succ 50 Mg Tablet) 50 mg PO DAILY [facility] Last Admin: 12/27/19 06:23 Dose: 50 mg Documented by: Mirabegron (Mirabegron 25 Mg Tab.Er.24h) 25 mg PO DAILY [facility] Last Admin: 12/27/19 06:24 Dose: 25 mg Documented by: Montelukast Sodium (Montelukast 10 Mg Tablet) 10 mg PO QHS [facility] Last Admin: 12/26/19 21:25 Dose: 10 mg Documented by: Nicotine (Nicotine 21 Mg Patch) 21 mg TRANSDERM. DAILY [facility] Last Admin: 12/27/19 06:22 Dose: 21 mg Documented by: Nitroglycerin (Nitroglycerin (Inpatient Use) 0.4 Mg Tab.Subl) 0.4 mg SUBLINGUAL Q5M PRN PRN Reason: CARDIAC/CHEST PAIN Nutritional Formula (Lactose Free) (Glucerna Shake 120 Ml Liquid) 120 ml PO 4X/DAY [facility] Last Admin: 12/27/19 06:26 Dose: 120 ml Documented by: Nystatin (Nystatin Powder 15gm Bottle) 1 applic TOPICAL 0600,2200 [facility]; Protocol Last Admin: 12/27/19 06:36 Dose: 1 applicatio Documented by: Polyethylene Glycol (Polyethylene Glycol 3350 17 Gm Packet) 17 gm PO BID [facility] Last Admin: 12/27/19 06:22 Dose: 17 gm Documented by: Potassium Chloride (Potassium Chloride 10 Meq Tablet) [facility] Admin: 12/26/19 08:07 Dose: 10 meq Documented by: Pregabalin (Pregabalin 75 Mg Capsule) 75 mg PO TID [facility] Last Admin: 12/27/19 06:22 Dose: 75 mg Documented by: Promethazine HCl (Promethazine 25 Mg Tablet) 12.5 - 25 mg PO BID PRN PRN PRN Reason: NAUSEA Risperidone (Risperidone 2 Mg Tablet) 4 mg PO QHS [facility] Last Admin: 12/26/19 21:26 Dose: 4 mg Documented by: Fluticasone/Salmeterol (Fluticasone/Salmeterol 232-14 Inhaler) 1 puff IH BID [facility] Last Admin: 12/27/19 06:26 Dose: 1 puff Documented by: Senna/Docusate Sodium (Senna/Docusate Sodium 1 Tablet) 2 tablet PO BID [facility] Last Admin: 12/27/19 06:25 Dose: 2 tablet Documented by: Sodium Chloride (0.9% Saline Lock 10 Ml Syringe) 10 - 40 ml IV UD PRN PRN Reason: SALINE FLUSH Last Admin: 12/27/19 07:05 Dose: 10 ml Documented by: Sucralfate (Sucralfate 1 Gm Tablet) 1 gm PO 1HR_ACHS [facility] Last Admin: 12/27/19 06:24 Dose: 1 gm Documented by: Tramadol HCl (Tramadol 50 Mg Tablet) 50 mg PO Q6H PRN PRN PRN Reason: Pain Score 1-5 Last Admin: 12/21/19 10:29 Dose: 50 mg Documented by: Trazodone HCl (Trazodone 100 Mg Tablet) 200 mg PO QHS [facility] Last Admin: 12/26/19 21:25 Dose: 200 mg Documented by: Umeclidinium [place] (Umeclidinium [place] Inhaler) 1 puff IH DAILY [facility] Last Admin: 12/27/19 06:26 Dose: 1 puff Documented by: Medical Necessity - Tobacco Use Smoking Status: Current every day smoker Tobacco Use: Cigarettes Assessment/Plan All Active Problems (Last Reviewed 12/16/19 @ 21:[address] Jese Strauss, DO) Syncope (Acute) Closed left ankle fracture (Acute) Debility (Acute) Fall (Acute) Diarrhea (Resolved) Hypokalemia (Resolved) Left trimalleolar ankle fracture Uncontrolled Diabetes Tobacco use Multiple comorbidities Patient seen and examined Dressing changed. Betadine along incision, DSD, splint reapplied Some maceration noted to lateral incision No weightbearing left foot/ankle, keep foot elevated as much as possible. Keep splint clean, dry and intact. Vitamin D lab is low - recommend vitamin D supplementation Recommend tobacco cessation, and proper glucose control to help healing of ankle fracture. Reviewed increased risks of nonhealing and potential complications given patient's multiple comorbidities, including but not limited to tobacco use and uncontrolled diabetes. Podiatry will continue to follow.
[2019-12-27] MEDS: traMADol 50 MG Tablet PO (08:16)
--- NOTE | 2019-12-27 08:18 | NURSING ---
Dr. Del Angel in this morning to change soft cast to LLE.
[2019-12-27 11:06] LABS: Bedside Glucose 150 mg/dL (70-110)
--- NOTE | 2019-12-27 15:24 | CASEMGMT ---
Social Work Spoke with pt about alternative DC plans. Explained insurance update submitted this date and continued stay is not guaranteed. Pt is still NWB LLE and needs a high level of assist, which pt agrees. Discussed returning at this level is not safe - pt agrees. SW discussed alternative DC plan. Pt agreeable to referral to [facility] if cannot DC home, and pt can smoke there. Referral made. Will continue to follow. Soraya Petersen, SEAMER OPERATOR THERMO CEMENTING FOLDER OPERATOR
[2019-12-27 16:41] LABS: Bedside Glucose 155 mg/dL (70-110)
[2019-12-27] MEDS: traZODone 100 MG Tablet 200 MG PO (21:38)
[2019-12-27] MEDS: Atorvastatin Calcium 80 MG Tablet PO (21:41)
[2019-12-27] MEDS: Lisinopril 20 MG Tablet PO (21:43)
[2019-12-27] MEDS: RisperiDONE 2 MG Tablet 4 MG PO (21:43)
[2019-12-27] MEDS: Montelukast 10 MG Tablet PO (21:43)
[2019-12-27 21:45] LABS: Bedside Glucose 186 mg/dL (70-110)
[2019-12-28 05:00] VITALS: BP 138/70; PULSE 89; RESP 18; TEMP 36.7; O2SAT 91
[2019-12-28] MEDS: Sucralfate 1 GM Tablet PO ×4 (05:24→19:51)
[2019-12-28] MEDS: Baclofen 10 MG Tablet PO ×3 (05:24→19:50)
[2019-12-28] MEDS: Polyethylene Glycol 3350 17 GM PACKET PO ×2 (05:24→17:21)
[2019-12-28] MEDS: Clopidogrel Bisulfate 75 MG Tablet PO (05:25)
[2019-12-28] MEDS: busPIRone 15 MG TABLET 30 MG PO ×2 (05:25→17:20)
[2019-12-28] MEDS: Pregabalin 75 MG Capsule PO ×3 (05:25→19:50)
[2019-12-28] MEDS: Furosemide 20 MG Tablet PO (05:25)
[2019-12-28] MEDS: Senna/Docusate Sodium 1 Tablet 2 TABLET PO ×2 (05:25→17:21)
[2019-12-28] MEDS: Mirabegron 25 MG TAB.ER.24H PO (05:25)
[2019-12-28] MEDS: amLODIPine 10 MG Tablet PO (05:25)
[2019-12-28] MEDS: Ciprofloxacin 500 MG Tablet PO ×2 (05:25→17:20)
[2019-12-28] MEDS: Menthol/Lanolin/Calamine/Znox 113 GM Tube 1 APPLIC TOPICAL ×2 (05:26→17:36)
[2019-12-28] MEDS: Nystatin Powder 15gm Bottle 1 APPLIC TOPICAL ×2 (05:26→20:01)
[2019-12-28] MEDS: Umeclidinium Bromide Inhaler 1 PUFF IH (05:27)
[2019-12-28] MEDS: Fluticasone/Salmeterol 232-14 Inhaler 1 PUFF IH ×2 (05:27→17:24)
[2019-12-28] MEDS: APIXABAN 5 MG TABLET PO ×2 (05:30→17:21)
[2019-12-28] MEDS: HYDROmorphone 2 MG TABLET 4 MG PO ×5 (05:30→21:31)
[2019-12-28] MEDS: Glucerna Shake 120 ML LIQUID PO ×4 (05:44→19:59)
[2019-12-28 05:45] VITALS: BP 138/70; PULSE 89
[2019-12-28] MEDS: Metoprolol(XL)Succ 50 MG Tablet PO (05:45)
[2019-12-28 06:26] LABS: Bedside Glucose 122 mg/dL (70-110)
[2019-12-28 07:22] VITALS: O2SAT 95
[2019-12-28] MEDS: traMADol 50 MG Tablet PO ×2 (07:24→15:39)
[2019-12-28 08:37] LABS: Hematocrit 32.9 % (37-47); Hemoglobin 10.3 g/dL (12.0-15.0)
[2019-12-28 10:00] VITALS: PULSE 80; RESP 18; O2SAT 95
[2019-12-28 11:30] LABS: Bedside Glucose 196 mg/dL (70-110)
--- NOTE | 2019-12-28 12:17 | NURSING ---
Resident notified of COVID Outbreak status. Left messages for sisters, Jessica and Balbina to call.
--- NOTE | 2019-12-28 12:38 | NURSING ---
Notified sisters, Jessica and Balbina of COVID Outbreak status.
[2019-12-28 14:32] VITALS: BP 123/61; PULSE 85; RESP 18; TEMP 37; O2SAT 93
[2019-12-28 16:26] LABS: Bedside Glucose 186 mg/dL (70-110)
[2019-12-28] MEDS: traZODone 100 MG Tablet 200 MG PO (19:52)
[2019-12-28] MEDS: RisperiDONE 2 MG Tablet 4 MG PO (19:55)
[2019-12-28] MEDS: Atorvastatin Calcium 80 MG Tablet PO (19:55)
[2019-12-28] MEDS: Lisinopril 20 MG Tablet PO (19:57)
[2019-12-28] MEDS: Montelukast 10 MG Tablet PO (19:57)
[2019-12-28 22:16] LABS: Bedside Glucose 165 mg/dL (70-110)
[2019-12-29 00:02] VITALS: PULSE 76; RESP 12; RESP 22; O2SAT 93
--- NOTE | 2019-12-29 00:28 | NURSING ---
Patient states that she would like a xray of her left foot because she thinks that her fourth and pinky toe are broken. This nurse look at toes didn't notices anything different in toes and explained to patient that she should keep left foot elevated and ice to help with the swelling in it. She states that she would still like a xray just to make sure that they aren't broken. Concern put on doctor list.
[2019-12-29 03:21] VITALS: PULSE 83; RESP 12; RESP 16; O2SAT 94
[2019-12-29 05:00] VITALS: BP 112/58; PULSE 80; RESP 18; TEMP 36.8; O2SAT 95
[2019-12-29] MEDS: Polyethylene Glycol 3350 17 GM PACKET PO ×2 (06:26→17:08)
[2019-12-29] MEDS: HYDROmorphone 2 MG TABLET 4 MG PO ×5 (06:26→21:07)
[2019-12-29] MEDS: Pregabalin 75 MG Capsule PO ×3 (06:27→21:05)
[2019-12-29] MEDS: Umeclidinium Bromide Inhaler 1 PUFF IH (06:27)
[2019-12-29] MEDS: Senna/Docusate Sodium 1 Tablet 2 TABLET PO ×2 (06:29→17:09)
[2019-12-29] MEDS: busPIRone 15 MG TABLET 30 MG PO ×2 (06:29→17:09)
[2019-12-29 06:30] VITALS: BP 112/58; PULSE 80
[2019-12-29] MEDS: Mirabegron 25 MG TAB.ER.24H PO (06:30)
[2019-12-29] MEDS: Baclofen 10 MG Tablet PO ×3 (06:30→21:05)
[2019-12-29] MEDS: Ciprofloxacin 500 MG Tablet PO ×2 (06:30→17:10)
[2019-12-29] MEDS: amLODIPine 10 MG Tablet PO (06:30)
[2019-12-29] MEDS: Metoprolol(XL)Succ 50 MG Tablet PO (06:30)
[2019-12-29] MEDS: APIXABAN 5 MG TABLET PO ×2 (06:30→17:10)
[2019-12-29] MEDS: Clopidogrel Bisulfate 75 MG Tablet PO (06:30)
[2019-12-29] MEDS: Furosemide 20 MG Tablet PO (06:30)
[2019-12-29 06:31] LABS: Bedside Glucose 144 mg/dL (70-110)
[2019-12-29] MEDS: Glucerna Shake 120 ML LIQUID PO ×4 (06:31→21:10)
[2019-12-29] MEDS: Fluticasone/Salmeterol 232-14 Inhaler 1 PUFF IH ×2 (06:35→17:08)
[2019-12-29] MEDS: Nystatin Powder 15gm Bottle 1 APPLIC TOPICAL ×2 (06:35→21:11)
[2019-12-29] MEDS: Menthol/Lanolin/Calamine/Znox 113 GM Tube 1 APPLIC TOPICAL ×2 (06:38→21:05)
[2019-12-29] MEDS: Sucralfate 1 GM Tablet PO ×4 (07:03→21:04)
[2019-12-29] MEDS: traMADol 50 MG Tablet PO ×2 (08:21→14:37)
[2019-12-29 11:35] LABS: Bedside Glucose 143 mg/dL (70-110)
--- NOTE | 2019-12-29 13:32 | NURSING ---
Pt states pain medication is not elevating pain. continues to have 8/10 pain in left ankle. Will notify charge nurse.
[2019-12-29 13:36] VITALS: BP 120/60; PULSE 82; RESP 18; TEMP 36.7; O2SAT 94
[2019-12-29 17:16] LABS: Bedside Glucose 109 mg/dL (70-110)
--- NOTE | 2019-12-29 19:00 | NURSING ---
TIGER MACHINE OPERATOR notified this nurse that patient complaining saying, they are transferring me with only 1 assist. If my doctor finds out he will be furious. TIGER MACHINE OPERATOR's on nightshift have been transferring patient x2 assist. This nurse recommended for 2 staff to go in with patient at all times.
[2019-12-29 20:59] VITALS: PULSE 77; RESP 18; O2SAT 96
[2019-12-29] MEDS: traZODone 100 MG Tablet 200 MG PO (21:04)
[2019-12-29] MEDS: Atorvastatin Calcium 80 MG Tablet PO (21:05)
[2019-12-29] MEDS: RisperiDONE 2 MG Tablet 4 MG PO (21:05)
[2019-12-29] MEDS: Montelukast 10 MG Tablet PO (21:06)
[2019-12-29] MEDS: Lisinopril 20 MG Tablet PO (21:10)
[2019-12-29 21:20] LABS: Bedside Glucose 147 mg/dL (70-110)
--- NOTE | 2019-12-29 23:16 | CPS ---
Patient refused BiPAP tonight. SHERIFF SERGEANT will monitor patient. Patient understands to let nursing staff know if she would like to go on so SHERIFF SERGEANT can place patient on BiPAP.
[2019-12-30 06:35] LABS: Bedside Glucose 124 mg/dL (70-110)
[2019-12-30] MEDS: traMADol 50 MG Tablet PO (06:42)
[2019-12-30] MEDS: Polyethylene Glycol 3350 17 GM PACKET PO ×2 (06:43→17:17)
[2019-12-30] MEDS: Senna/Docusate Sodium 1 Tablet 2 TABLET PO ×2 (06:43→17:17)
[2019-12-30] MEDS: Mirabegron 25 MG TAB.ER.24H PO (06:44)
[2019-12-30] MEDS: Sucralfate 1 GM Tablet PO ×4 (06:44→20:10)
[2019-12-30] MEDS: Baclofen 10 MG Tablet PO ×3 (06:44→20:09)
[2019-12-30] MEDS: busPIRone 15 MG TABLET 30 MG PO ×2 (06:44→17:15)
[2019-12-30] MEDS: Pregabalin 75 MG Capsule PO ×3 (06:44→20:09)
[2019-12-30] MEDS: Ciprofloxacin 500 MG Tablet PO ×2 (06:44→17:15)
[2019-12-30] MEDS: amLODIPine 10 MG Tablet PO (06:44)
[2019-12-30] MEDS: Furosemide 20 MG Tablet PO (06:44)
[2019-12-30 06:45] VITALS: BP 109/55; PULSE 77
[2019-12-30] MEDS: Metoprolol(XL)Succ 50 MG Tablet PO (06:45)
[2019-12-30] MEDS: Fluticasone/Salmeterol 232-14 Inhaler 1 PUFF IH ×2 (06:47→17:18)
[2019-12-30] MEDS: Umeclidinium Bromide Inhaler 1 PUFF IH (06:47)
[2019-12-30] MEDS: Menthol/Lanolin/Calamine/Znox 113 GM Tube 1 APPLIC TOPICAL ×2 (06:49→17:17)
[2019-12-30] MEDS: Nystatin Powder 15gm Bottle 1 APPLIC TOPICAL ×2 (06:49→20:12)
[2019-12-30] MEDS: HYDROmorphone 2 MG TABLET 4 MG PO ×5 (06:53→20:02)
[2019-12-30] MEDS: Clopidogrel Bisulfate 75 MG Tablet PO (06:58)
[2019-12-30 07:00] VITALS: RESP 18; TEMP 36.9; O2SAT 93
--- NOTE | 2019-12-30 08:30 | NURSING ---
pt called out stating her pain 10/13. pt had been given ultram & dilaudid @ 0645, so pt had no other PRN medication due. dr angeles notified, new order to given dilaudid 4mg x1 now. Pt had no grimmacing or discomfort noted. pt sitting up in recliner chair, legs elevated. call light in reach. pt noted to be using dilaudid frequently.
[2019-12-30] MEDS: APIXABAN 5 MG TABLET PO ×2 (09:25→17:16)
[2019-12-30 10:10] VITALS: PULSE 84; RESP 18; O2SAT 97
[2019-12-30 11:00] VITALS: O2SAT 93
[2019-12-30] MEDS: Glucerna Shake 120 ML LIQUID PO ×2 (11:14→17:21)
[2019-12-30 11:15] LABS: Bedside Glucose 190 mg/dL (70-110)
--- NOTE | 2019-12-30 12:22 | CASEMGMT ---
Social Work [facility] accepted pt. Pt notified. Will await outcome from NRD 12/30. Soraya Petersen, SHELLFISH WEIGHER PIT FURNACE OPERATOR
[2019-12-30 14:12] VITALS: BP 109/62; PULSE 75; RESP 20; TEMP 35.6; O2SAT 97
--- NOTE | 2019-12-30 15:36 | NURSING ---
THIS NURSE TO PT ROOM AND THERAPY BEHIND ME. FOUND PT CRYING. ASKED PT WHAT WAS WRONG AND PT STATED I JUST WANT TO GO HOME I MISS MY CATS AND I WANT A CIGARETTE AND [place] HAVING TROUBLE GETTING A WHEEL CHAIR FOR HOME. REPORTED TO RN AND JUDIPROTECTIVE SIGNAL OPERATIONS SUPERVISOR.
--- NOTE | 2019-12-30 15:40 | NURSING ---
PT STATED THERE WAS NO ONE SHE WANTED ME TO CALL.
--- NOTE | 2019-12-30 15:42 | NURSING ---
NICOTINE PATCH VERIFIED TO RIGHT DELT.
[2019-12-30 16:25] LABS: Bedside Glucose 181 mg/dL (70-110)
--- NOTE | 2019-12-30 17:25 | NURSING ---
Sister, kailee, notified of negative COVID results.
--- NOTE | 2019-12-30 18:25 | NURSING ---
pt keeps calling for pain meds every 2hours stating pain is a 9/10. pt shows no signs or grimacing of having any pain. when this nurse goes in to pt room when she calls this nurse finds her sleeping. RN aware.
[2019-12-30] MEDS: RisperiDONE 2 MG Tablet 4 MG PO (20:09)
[2019-12-30] MEDS: Montelukast 10 MG Tablet PO (20:09)
[2019-12-30] MEDS: traZODone 100 MG Tablet 200 MG PO (20:09)
[2019-12-30] MEDS: Lisinopril 20 MG Tablet PO (20:09)
[2019-12-30] MEDS: Atorvastatin Calcium 80 MG Tablet PO (20:09)
--- NOTE | 2019-12-30 20:13 | NURSING ---
patient requested HS medications at this time so she can go to sleep. Patient also refused her bipap. RN aware.
--- NOTE | 2019-12-30 21:18 | CPS ---
CALLED BY NURSE -PT DOESN'T WANT TO WEAR BIPAP TONIGHT
[2019-12-30 21:36] LABS: Bedside Glucose 193 mg/dL (70-110)
[2019-12-31] MEDS: HYDROmorphone 2 MG TABLET 4 MG PO ×5 (03:37→21:34)
[2019-12-31] MEDS: traMADol 50 MG Tablet PO ×3 (05:33→19:59)
[2019-12-31] MEDS: amLODIPine 10 MG Tablet PO (05:34)
[2019-12-31] MEDS: Furosemide 20 MG Tablet PO (05:34)
[2019-12-31] MEDS: Mirabegron 25 MG TAB.ER.24H PO (05:34)
[2019-12-31] MEDS: busPIRone 15 MG TABLET 30 MG PO ×2 (05:34→16:51)
[2019-12-31] MEDS: Clopidogrel Bisulfate 75 MG Tablet PO (05:34)
[2019-12-31] MEDS: Polyethylene Glycol 3350 17 GM PACKET PO ×2 (05:34→16:52)
[2019-12-31] MEDS: Ciprofloxacin 500 MG Tablet PO (05:34)
[2019-12-31] MEDS: APIXABAN 5 MG TABLET PO ×2 (05:34→16:52)
[2019-12-31] MEDS: Pregabalin 75 MG Capsule PO ×3 (05:34→19:59)
[2019-12-31] MEDS: Senna/Docusate Sodium 1 Tablet 2 TABLET PO ×2 (05:34→16:53)
[2019-12-31] MEDS: Baclofen 10 MG Tablet PO ×3 (05:34→20:04)
[2019-12-31] MEDS: Sucralfate 1 GM Tablet PO ×4 (05:36→20:02)
[2019-12-31] MEDS: Fluticasone/Salmeterol 232-14 Inhaler 1 PUFF IH ×2 (05:37→16:58)
[2019-12-31] MEDS: Metoprolol(XL)Succ 50 MG Tablet PO (05:37)
[2019-12-31] MEDS: Umeclidinium Bromide Inhaler 1 PUFF IH (05:37)
[2019-12-31] MEDS: Menthol/Lanolin/Calamine/Znox 113 GM Tube 1 APPLIC TOPICAL ×2 (05:44→16:53)
[2019-12-31] MEDS: Nystatin Powder 15gm Bottle 1 APPLIC TOPICAL ×2 (05:44→20:09)
[2019-12-31 06:21] LABS: Bedside Glucose 167 mg/dL (70-110)
[2019-12-31 07:14] VITALS: O2SAT 94
--- NOTE | 2019-12-31 10:33 | NURSING ---
NICOTINE PATCH VERIFIED TO LEFT CHEST.
[2019-12-31 11:15] LABS: Bedside Glucose 178 mg/dL (70-110)
[2019-12-31] MEDS: Glucerna Shake 120 ML LIQUID PO ×3 (11:24→19:59)
[2019-12-31 14:23] VITALS: BP 118/67; PULSE 81; RESP 17; TEMP 36.5; O2SAT 95
--- NOTE | 2019-12-31 15:28 | MDS.RN ---
Information for the mds was obtained from review of the clinical record, interview of resident, staff, and direct observation of resident's care.
--- NOTE | 2019-12-31 15:44 | NURSING ---
Resident and sister, Jessica, notified of staff member being positive for COVID-19.
[2019-12-31 17:06] LABS: Bedside Glucose 152 mg/dL (70-110)
[2019-12-31] MEDS: traZODone 100 MG Tablet 200 MG PO (20:03)
[2019-12-31] MEDS: Atorvastatin Calcium 80 MG Tablet PO (20:04)
[2019-12-31] MEDS: Montelukast 10 MG Tablet PO (20:05)
[2019-12-31] MEDS: RisperiDONE 2 MG Tablet 4 MG PO (20:05)
[2019-12-31] MEDS: Lisinopril 20 MG Tablet PO (20:05)
[2019-12-31 21:30] LABS: Bedside Glucose 191 mg/dL (70-110)
[2020-01-01] MEDS: HYDROmorphone 2 MG TABLET 4 MG PO ×5 (00:51→19:53)
[2020-01-01] MEDS: Pregabalin 75 MG Capsule PO ×3 (04:31→19:53)
[2020-01-01] MEDS: Senna/Docusate Sodium 1 Tablet 2 TABLET PO ×2 (04:33→17:11)
[2020-01-01] MEDS: Furosemide 20 MG Tablet PO (04:33)
[2020-01-01] MEDS: Mirabegron 25 MG TAB.ER.24H PO (04:33)
[2020-01-01] MEDS: amLODIPine 10 MG Tablet PO (04:33)
[2020-01-01] MEDS: busPIRone 15 MG TABLET 30 MG PO ×2 (04:34→17:11)
[2020-01-01] MEDS: Baclofen 10 MG Tablet PO ×3 (04:34→19:55)
[2020-01-01] MEDS: Clopidogrel Bisulfate 75 MG Tablet PO (04:34)
[2020-01-01] MEDS: APIXABAN 5 MG TABLET PO ×2 (04:35→17:10)
[2020-01-01] MEDS: Polyethylene Glycol 3350 17 GM PACKET PO ×2 (04:37→17:11)
[2020-01-01] MEDS: Menthol/Lanolin/Calamine/Znox 113 GM Tube 1 APPLIC TOPICAL ×2 (04:37→17:11)
[2020-01-01] MEDS: Fluticasone/Salmeterol 232-14 Inhaler 1 PUFF IH ×2 (04:38→17:12)
[2020-01-01] MEDS: Umeclidinium Bromide Inhaler 1 PUFF IH (04:38)
[2020-01-01 04:48] VITALS: BP 93/66; PULSE 74
[2020-01-01] MEDS: Metoprolol(XL)Succ 50 MG Tablet PO (04:48)
[2020-01-01] MEDS: Nystatin Powder 15gm Bottle 1 APPLIC TOPICAL ×2 (04:49→19:58)
[2020-01-01 04:51] VITALS: BP 93/66; PULSE 74; RESP 18; TEMP 36.5; O2SAT 92
[2020-01-01 06:50] LABS: Bedside Glucose 164 mg/dL (70-110)
[2020-01-01] MEDS: Sucralfate 1 GM Tablet PO ×4 (08:27→19:55)
[2020-01-01 10:00] VITALS: PULSE 71; RESP 16; O2SAT 96
[2020-01-01] MEDS: Glucerna Shake 120 ML LIQUID PO (11:09)
[2020-01-01 11:50] LABS: Bedside Glucose 169 mg/dL (70-110)
[2020-01-01] MEDS: traMADol 50 MG Tablet PO (12:16)
--- NOTE | 2020-01-01 12:23 | PCM.PROGNOTE ---
Patient Problems: Active and Suspected Problems (Last Reviewed 12/16/19 @ 21:[address] Jese Strauss, DO) Syncope (Acute) Closed left ankle fracture (Acute) Debility (Acute) Fall (Acute) Subjective: This 54-year-old female seen bedside in a transitional care unit for left open reduction internal fixation of ankle fracture performed by Dr. Mitchell. She denies fever, chill, nausea, vomiting, chest pain, shortness of breath, calf pain. She rates her pain at worst is a 6 out of 10. She is working with physical therapy this morning. Her splint is intact and clean. - Physical Exam Vitals/I&O's: Vital Signs Temp Pulse Resp BP Pulse Ox 97.7 F L 74 18 93/66 92 01/01/20 04:51 01/01/20 04:51 01/01/20 04:51 01/01/20 04:51 01/01/20 04:51 Oxygen Flow Rate (L/min) 3 Oxygen Delivery Method Nasal Cannula Weight: 114.39 kg Body Mass Index (BMI) 44.2 Finger Stick Blood Glucose 422 Intake and Output for Last 24 Hours 12/30/19 12/31/19 01/01/20 23:59 23:59 23:59 Intake Total 1080 / 1080 1640 / 1640 Output Total 325 / 325 1100 / 1100 1000 / 1000 Balance 755 / 755 540 / 540 -1000 / -1000 General: Alert, Oriented x3, Cooperative HEENT: Atraumatic Extremities: No cyanosis, Capillary Refill Less than 3 Seconds, No Calf Tenderness - Negative Huey and De Souza sign left lower extremity, Diminished Peripheral Pulses, Edema, Tenderness - Tenderness to surgical repair site is within expected levels, - - Compartments are soft to palpate left lower extremity. Active range of motion of toes x5 left foot Skin: Incision - Both incisions are well aligned and coapted with nylon suture in place. There is no gapping. The medial aspect has no maceration necrosis erythema streaking odor or purulence. The lateral aspect has no infection, erythema or odor or purulence. The lateral aspect macerated w/out gapping/necrosis Musculoskeletal: Muscle Wasting Neurological: Sensory exam intact to light touch and pain - However she reports the digits are less sensitive since her injury Psych/Mental Status: Normal Affect, Appropriate Microbiology Past 72 Hours 12/30/19 10:45 Mucosa - Nose - Final Laboratory Results 12/31/19 17:01: POC Glucose 152 H 12/31/19 21:24: POC Glucose 191 H 01/01/20 06:13: POC Glucose 164 H 01/01/20 11:11: POC Glucose 169 H Current Medications Albuterol Sulfate (Albuterol 2.5 Mg/3 Ml Vial.Neb.) 2.5 mg INHALATION Q4H PRN PRN PRN Reason: Sob &/Or Wheezing Last Admin: 12/23/19 21:30 Dose: 2.5 mg Documented by: Amlodipine Besylate (Amlodipine 10 Mg Tablet) 10 mg PO DAILY [facility] Last Admin: 01/01/20 04:33 Dose: 10 mg Documented by: Apixaban (Apixaban 5 Mg Tablet) 5 mg PO BID [facility] Last Admin: 01/01/20 04:35 Dose: 5 mg Documented by: Atorvastatin Calcium (Atorvastatin Calcium 80 Mg Tablet) 80 mg PO QHS [facility] Last Admin: 12/31/19 20:04 Dose: 80 mg Documented by: Baclofen (Baclofen 10 Mg Tablet) 10 mg PO TID [facility] Last Admin: 01/01/20 04:34 Dose: 10 mg Documented by: Bisacodyl (Bisacodyl 10 Mg Suppository) 10 mg RECTAL DAILY PRN PRN Reason: Constipation Buspirone HCl (Buspirone 15 Mg Tablet) 30 mg PO BID [facility] Last Admin: 01/01/20 04:34 Dose: 30 mg Documented by: Calamine/Phenol (Menthol/Lanolin/Calamine/Znox 113 Gm Tube) 1 applic TOPICAL BID [facility]; Protocol Last Admin: 01/01/20 04:37 Dose: 1 applicatio Documented by: Cholecalciferol (Cholecalciferol (Vit D3) 1,000 Unit (25mcg)) 2,000 unit PO DAILYCM [facility] Last Admin: 01/01/20 08:27 Dose: 2,000 unit Documented by: Clopidogrel Bisulfate (Clopidogrel Bisulfate 75 Mg Tablet) 75 mg PO DAILY [facility] Last Admin: 01/01/20 04:34 Dose: 75 mg Documented by: Furosemide (Furosemide 20 Mg Tablet) 20 mg PO DAILY [facility] Last Admin: 01/01/20 04:33 Dose: 20 mg Documented by: Hydromorphone HCl (Hydromorphone 2 Mg Tablet) 4 mg PO Q3H PRN PRN PRN Reason: Pain Score 6-10 Last Admin: 01/01/20 10:56 Dose: 4 mg Documented by: Insulin Glargine (Insulin Glargine 100 Units/Ml Pen) 40 units SC BID [facility] Last Admin: 01/01/20 06:34 Dose: 40 u Documented by: Lactobacillus Acidophilus (Lactobacillus Acidophilus) 2 tablet PO BID [facility] Last Admin: 01/01/20 04:34 Dose: 2 tablet Documented by: Lisinopril (Lisinopril 20 Mg Tablet) 20 mg PO QHS [facility] Last Admin: 12/31/19 20:05 Dose: 20 mg Documented by: Metoprolol Succinate (Metoprolol(Xl)Succ 50 Mg Tablet) 50 mg PO DAILY [facility] Last Admin: 01/01/20 04:48 Dose: 50 mg Documented by: Mirabegron (Mirabegron 25 Mg Tab.Er.24h) 25 mg PO DAILY [facility] Last Admin: 01/01/20 04:33 Dose: 25 mg Documented by: Montelukast Sodium (Montelukast 10 Mg Tablet) 10 mg PO QHS [facility] Last Admin: 12/31/19 20:05 Dose: 10 mg Documented by: Nicotine (Nicotine 21 Mg Patch) 21 mg TRANSDERM. DAILY [facility] Last Admin: 01/01/20 04:34 Dose: 21 mg Documented by: Nitroglycerin (Nitroglycerin (Inpatient Use) 0.4 Mg Tab.Subl) 0.4 mg SUBLINGUAL Q5M PRN PRN Reason: CARDIAC/CHEST PAIN Nystatin (Nystatin Powder 15gm Bottle) 1 applic TOPICAL 0600,2200 [facility]; Protocol Last Admin: 01/01/20 04:49 Dose: 1 applicatio Documented by: Polyethylene Glycol (Polyethylene Glycol 3350 17 Gm Packet) 17 gm PO BID [facility] Last Admin: 01/01/20 04:37 Dose: 17 gm Documented by: Potassium Chloride (Potassium Chloride 10 Meq Tablet) 10 meq PO DAILYCM [facility] Last Admin: 01/01/20 08:27 Dose: 10 meq Documented by: Pregabalin (Pregabalin 75 Mg Capsule) 75 mg PO TID [facility] Last Admin: 01/01/20 04:31 Dose: 75 mg Documented by: Promethazine HCl (Promethazine 25 Mg Tablet) 12.5 - 25 mg PO BID PRN PRN PRN Reason: NAUSEA Risperidone (Risperidone 2 Mg Tablet) 4 mg PO QHS [facility] Last Admin: 12/31/19 20:05 Dose: 4 mg Documented by: Fluticasone/Salmeterol (Fluticasone/Salmeterol 232-14 Inhaler) 1 puff IH BID [facility] Last Admin: 01/01/20 04:38 Dose: 1 puff Documented by: Senna/Docusate Sodium (Senna/Docusate Sodium 1 Tablet) 2 tablet PO BID [facility] Last Admin: 01/01/20 04:33 Dose: 2 tablet Documented by: Sodium Chloride (0.9% Saline Lock 10 Ml Syringe) 10 - 40 ml IV UD PRN PRN Reason: SALINE FLUSH Last Admin: 12/27/19 07:05 Dose: 10 ml Documented by: Sucralfate (Sucralfate 1 Gm Tablet) 1 gm PO 1HR_ACHS [facility] Last Admin: 01/01/20 11:09 Dose: 1 gm Documented by: Tramadol HCl (Tramadol 50 Mg Tablet) 50 mg PO Q6H PRN PRN PRN Reason: Pain Score 1-5 Last Admin: 01/01/20 12:16 Dose: 50 mg Documented by: Trazodone HCl (Trazodone 100 Mg Tablet) 200 mg PO QHS [facility] Last Admin: 12/31/19 20:03 Dose: 200 mg Documented by: Umeclidinium Hancock (Umeclidinium Hancock Inhaler) 1 puff IH DAILY [facility] Last Admin: 01/01/20 04:38 Dose: 1 puff Documented by: Medical Necessity - Tobacco Use Smoking Status: Current every day smoker Tobacco Use: Cigarettes Assessment/Plan All Active Problems (Last Reviewed 12/16/19 @ 21:[address] Jese Strauss, DO) Syncope (Acute) Closed left ankle fracture (Acute) Debility (Acute) Fall (Acute) Diarrhea (Resolved) Hypokalemia (Resolved) s/p left trimalleolar ankle fracture (DOS 12/23/2019, Dr. Mitchell) Uncontrolled Diabetes Tobacco use Multiple comorbidities Patient seen and examined Dressing changed. Betadine along incision, DSD, splint reapplied Some maceration noted to lateral incision She was reassured no infection signs are noted. No weightbearing left foot/ankle, keep foot elevated as much as possible. She has some external rotation of the limbs I recommend additional offloading by hanging her ankle and foot over stacked pillows to keep pressure off of this site for pain management and maceration reduction. Keep splint clean, dry and intact. Vitamin D lab is low - recommend continue vitamin D supplementation Recommend tobacco cessation, and proper glucose control to help healing of ankle fracture. Reviewed increased risks of nonhealing and potential complications given patient's multiple comorbidities, including but not limited to tobacco use and uncontrolled diabetes. DVT prophylaxis per primary team. Podiatry will continue to follow biweekly to weekly. Please not hesitate to call if you have any questions. Veronica Smith DPM, FACF[facility] [phone]
[2020-01-01 15:41] VITALS: BP 126/69; PULSE 67; RESP 20; TEMP 36.9; O2SAT 93
[2020-01-01 16:56] LABS: Bedside Glucose 179 mg/dL (70-110)
[2020-01-01] MEDS: traZODone 100 MG Tablet 200 MG PO (19:53)
[2020-01-01] MEDS: Atorvastatin Calcium 80 MG Tablet PO (19:55)
[2020-01-01] MEDS: Montelukast 10 MG Tablet PO (19:56)
[2020-01-01] MEDS: RisperiDONE 2 MG Tablet 4 MG PO (19:56)
[2020-01-01] MEDS: Lisinopril 20 MG Tablet PO (19:57)
[2020-01-01 21:16] LABS: Bedside Glucose 216 mg/dL (70-110)
[2020-01-02] MEDS: HYDROmorphone 2 MG TABLET 4 MG PO ×6 (01:49→21:17)
[2020-01-02 05:00] VITALS: BP 104/68; PULSE 80; RESP 14; TEMP 36.8; O2SAT 95
[2020-01-02 05:54] LABS: Absolute Lymphocyte Count 1.36 X10^3/uL (0.83-4.51); Absolute Neutrophil Count 6.5 X10^3/uL (2.0-7.7); Basophil# 0.07 X10^3/uL; Basophil% 0.7 % (0-1); Eosinophil# 0.37 X10^3/uL; Eosinophils% 3.9 % (0-5); Hematocrit 32.6 % (37-47); Hemoglobin 10.4 g/dL (12.0-15.0); Lymphocyte # 1.36 X10^3/ul (4.0); Lymphocyte % 14.4 % (19-41); Mean Corp Hgb Conc 31.9 g/dL (32-36); Mean Corpuscular Hgb 29.5 pg (27.0-32.0); Mean Corpuscular Volume 92.6 fL (81-99); Mean Platelet Vol. 9.5 fl (6.2-12.0); Monocyte# 1.02 X10^3/uL; Monocyte% 10.8 % (0-10); NRBC Flagged by Analyzer 0 % (0-5); Neutrophil # 6.53 X10^3/uL (2.7-7.7); Neutrophil % 69.5 % (47-70); Platelet Count 556 K/mm3 (150-450); RBC Distribution Width CV 14.5 % (11.6-14.6); RBC Distribution Width SD 49.1 fl (35.1-43.9); Red Blood Count 3.52 M/mm3 (4.2-5.4); White Blood Count 9.4 K/mm3 (4.4-11.0)
[2020-01-02] MEDS: Fluticasone/Salmeterol 232-14 Inhaler 1 PUFF IH ×2 (06:28→17:46)
[2020-01-02 06:29] VITALS: BP 104/68; PULSE 80
[2020-01-02] MEDS: Senna/Docusate Sodium 1 Tablet 2 TABLET PO ×2 (06:29→17:45)
[2020-01-02] MEDS: Clopidogrel Bisulfate 75 MG Tablet PO (06:29)
[2020-01-02] MEDS: Sucralfate 1 GM Tablet PO ×4 (06:29→21:18)
[2020-01-02] MEDS: Baclofen 10 MG Tablet PO ×3 (06:29→21:18)
[2020-01-02] MEDS: Furosemide 20 MG Tablet PO (06:29)
[2020-01-02] MEDS: Metoprolol(XL)Succ 50 MG Tablet PO (06:29)
[2020-01-02] MEDS: APIXABAN 5 MG TABLET PO ×2 (06:29→17:44)
[2020-01-02] MEDS: Menthol/Lanolin/Calamine/Znox 113 GM Tube 1 APPLIC TOPICAL ×2 (06:30→17:44)
[2020-01-02] MEDS: busPIRone 15 MG TABLET 30 MG PO ×2 (06:30→17:44)
[2020-01-02] MEDS: Umeclidinium Bromide Inhaler 1 PUFF IH (06:30)
[2020-01-02] MEDS: Polyethylene Glycol 3350 17 GM PACKET PO ×2 (06:30→17:49)
[2020-01-02] MEDS: Mirabegron 25 MG TAB.ER.24H PO (06:31)
[2020-01-02] MEDS: Pregabalin 75 MG Capsule PO ×3 (06:33→21:17)
[2020-01-02 06:35] LABS: Bedside Glucose 141 mg/dL (70-110)
[2020-01-02] MEDS: amLODIPine 10 MG Tablet PO (06:37)
[2020-01-02] MEDS: Nystatin Powder 15gm Bottle 1 APPLIC TOPICAL ×2 (06:37→21:23)
[2020-01-02 06:56] VITALS: O2SAT 96
[2020-01-02] MEDS: traMADol 50 MG Tablet PO (10:37)
[2020-01-02 11:20] LABS: Bedside Glucose 135 mg/dL (70-110)
[2020-01-02] MEDS: Insulin Lispro 100 UNIT/ML INSULN.PEN SC ×2 (11:26→17:46)
--- NOTE | 2020-01-02 11:35 | CASEMGMT ---
Addendum entered by Soraya Petersen 01/02/20 13:47: Pt uses [facility] out of [place]. Contacted for restart in services. They currently do not have the staff to increase pt's hours, per pt request. Updated pt. Original Note: Social Work Met with patient. Informed her insurance approved with [employer] 01/05 and continued stay is not guaranteed. Pt states she saw ortho yesterday and things are looking good, but no changes. Pt requesting to DC home, but does acknowledge the ortho and IDT that it is not advised for her to DC home, but she has to go soon. Agreeable to set DC 01/06. Referred to [facility] PT/OT/SN/SW. Referred to [employer] for FWW, [facility] for knee scooter. Sister to transport. Plan: DC home alone 01/06, [facility] PT/OT/SN/SW, [employer] - FWW, [facility] - knee scooter Soraya Petersen, [employer]OPMENT MANAGER
[2020-01-02 13:28] VITALS: BP 117/51; PULSE 59; RESP 18; TEMP 36.8; O2SAT 98
[2020-01-02] MEDS: Hydrocortisone 2.5% Crm 1 APPLIC TOPICAL ×2 (14:35→21:21)
[2020-01-02 16:36] LABS: Bedside Glucose 173 mg/dL (70-110)
--- NOTE | 2020-01-02 19:21 | PCM.DC ---
- Discharge Diagnoses Current Active Problems: Current Active and Chronic Problems (Last Reviewed 12/16/19 @ 21:[address] Jese Strauss, DO) Pulmonary emboli (Chronic) Syncope (Acute) Closed left ankle fracture (Acute) Debility (Acute) Fall (Acute) Diabetic polyneuropathy (Chronic) Muscle spasm (Chronic) Insomnia (Chronic) Overactive bladder (Chronic) Anxiety (Chronic) Coronary artery disease (Chronic) COPD (chronic obstructive pulmonary disease) (Chronic) Diabetes mellitus (Chronic) HTN (hypertension) (Chronic) Osteoarthritis (Chronic) Schizophrenia (Chronic) Depression (Chronic) Gastroesophageal reflux disease (Chronic) Hyperlipidemia (Chronic) RACHEL (obstructive sleep apnea) (Chronic) 17/13 cm of water You will use the following diet at home:: No restrictions, Regular Your food should be the consistency of: Regular Your liquids should be the consistency of: Regular/Thin Discharge Activity: Return to Normal Activity, May Shower, Use Walker Weight Bearing Status: Weight bearing as tolerated Call your doctor if you observe: Fever of 101 or Higher, Inability to urinate, Inability to have a bowel movement, Shortness of breath, Chest pain, Uncontrolled pain Allergies/Adverse Reactions: Allergies amoxicillin Allergy (Verified 12/23/19 12:34) Itching erythromycin base Allergy (Verified 12/23/19 12:34) Unknown methadone Allergy (Verified 12/23/19 12:34) Itching metolazone Allergy (Verified 12/23/19 12:34) Unknown Penicillins Allergy (Verified 12/23/19 12:34) Hives Sulfa (Sulfonamide Antibiotics) Allergy (Verified 12/23/19 12:34) Hives acetaminophen [From Percocet] Adverse Reaction (Verified 12/23/19 12:34) Itching clarithromycin [From Biaxin] Adverse Reaction (Verified 12/23/19 12:34) Nausea ibuprofen Adverse Reaction (Verified 12/23/19 12:34) 3 BLEEDING ULCERS 3 BLEEDING ULCERS morphine Adverse Reaction (Verified 12/23/19 12:34) HEADACHE HEADACHE oxycodone [From Percocet] Adverse Reaction (Verified 12/23/19 12:34) Itching Medications to take at Discharge Atorvastatin Calcium [Lipitor] 80 mg PO QHS 08/22/15 Metoprolol(XL)Succ [Toprol Xl (Beta Trino)] 50 mg PO DAILY 08/22/15 Nitroglycerin 0.4 mg SL PRN PRN 11/08/16 amlodipine 10 mg tablet 10 mg PO DAILY tab 05/02/17 potassium chloride 10 mEq tablet,extended release(part/cryst) 10 meq PO DAILY #60 tab 06/16/17 Pregabalin [Lyrica] 75 mg PO TID 03/08/18 Risperidone 4 mg PO QHS 03/08/18 Tizanidine HCl 6 mg PO TID PRN PRN 03/08/18 traZODone [Desyrel] 200 mg PO QHS 03/08/18 Furosemide [Lasix] 20 mg PO DAILY 11/20/18 Lisinopril 20 mg PO QHS 11/20/18 Mirabegron [Myrbetriq] 25 mg PO DAILY 11/20/18 Apixaban [Eliquis] 5 mg PO BID 05/02/19 Fluticasone/Salmeterol [Advair Hfa 230-21 Mcg Inhaler] 2 puff INHALATION DAILY 05/02/19 albuterol sulfate 90 mcg/actuation aerosol inhaler 2 puff INHALATION Q6H PRN 06/27/19 buspirone 30 mg tablet 30 mg PO BID tab 06/27/19 sucralfate 1 gram tablet 1 g PO QACHS 06/27/19 Nystatin [Nystop] 1 applic TP 4X/DAY 08/22/19 proMETHazine tablet [Phenergan tablet] 12.5 - 25 mg PO BID PRN PRN 08/22/19 tiotropium bromide 2.5 mcg/actuation mist for inhalation 2 puff INHALATION DAILY #4 g 09/30/19 montelukast 10 mg tablet 10 mg PO QHS #30 tab 10/30/19 albuterol sulfate 2.5 mg INHALATION Q4H PRN #180 ml 12/11/19 Lactobacillus Acidophilus [Acidophilus] 2 tab PO BID 12/16/19 Insulin Glargine [Lantus SoloStar Pen] 40 units SC BID 12/18/19 Nicotine [Nicoderm Cq] 21 mg TRANSDERM. DAILY 12/18/19 Apixaban [Eliquis] 5 mg PO BID tab 01/02/20 HYDROmorphone tablet [Dilaudid] 2 mg PO Q3H PRN PRN 3 Days #18 tab 01/02/20 Hydrocortisone 2.5% Crm [Hytone] 1 applic TOPICAL TID PRN PRN #1 tube 01/02/20 Menthol/Lanolin/Calamine/Znox [Calmoseptine Ointment] 1 applic TOPICAL BID tube 01/02/20 traMADol [Ultram] 50 mg PO Q6H PRN PRN 3 Days #12 tablet 01/02/20 The following prescriptions were given: HYDROmorphone tablet [Dilaudid] 2 mg PO Q3H PRN PRN 3 Days #18 tab PRN Reason: Pain Score 4-5 Transmission Status: Sent to [place] [address] Hydrocortisone 2.5% Crm [Hytone] 1 applic TOPICAL TID PRN PRN #1 tube PRN Reason: Itching Transmission Status: Pending to [place] [address] traMADol [Ultram] 50 mg PO Q6H PRN PRN 3 Days #12 tablet PRN Reason: Pain Score 1-5 Transmission Status: Sent to [place] [address] Primary Care Physician: Janel Taylor MD [Primary Care Provider] - Please follow up with your Primary Care Physician in: 1 week. Test Results: Test results from this visit will be discussed in further detail at your follow-up appointment, if applicable. Please Follow Up With: Ge Mitchell DPM When: 1 week. Proposed Discharge Date: 01/07/20
--- NOTE | 2020-01-02 19:23 | DS.PCM_ITS ---
Discharge Date and Diagnosis - Problem List Patient Problems: Active and Suspected Problems (Last Reviewed 12/16/19 @ 21:[address] Jese Strauss DO) Syncope (Acute) Closed left ankle fracture (Acute) Debility (Acute) Fall (Acute) Date of Admission: 12/18/19 Date of Discharge: 01/07/20 - Primary Discharge Diagnosis Acute Problems: Active Problems (Last Reviewed 12/16/19 @ 21:[address] Jese Strauss DO) Syncope (Acute) Closed left ankle fracture (Acute) Debility (Acute) Fall (Acute) - Secondary Discharge Diagnosis Chronic Problems: Chronic Problems (Last Reviewed 12/16/19 @ 21:[address] Jese Strauss DO) Stage 2 moderate COPD by GOLD classification (Chronic) Acute and chronic respiratory failure with hypoxia (Chronic) Cataract (Chronic) Iron deficiency (Chronic) Iron deficiency anemia following bariatric surgery (Chronic) History of gastric bypass (Chronic) Myocardial infarction (Chronic) H/O heart artery stent (Chronic) Pulmonary emboli (Chronic) Diabetic polyneuropathy (Chronic) Muscle spasm (Chronic) Insomnia (Chronic) Overactive bladder (Chronic) Anxiety (Chronic) Coronary artery disease (Chronic) COPD (chronic obstructive pulmonary disease) (Chronic) Diabetes mellitus (Chronic) HTN (hypertension) (Chronic) Peptic ulcer (Chronic) Chronic neutrophilia (Chronic) Osteoarthritis (Chronic) Morbid obesity (Chronic) Neutrophilic leukocytosis (Chronic) Type 2 diabetes mellitus (Chronic) Schizophrenia (Chronic) Hip osteoarthritis (Chronic) with chronic pain-right hip Iron deficiency anemia due to dietary causes (Chronic) exact cause of iron def anemia unknown-felt likely secondary to past history gastric bypass- although chronic blood loss etiology a possibility (has never had colonoscopy)-further workup including hemoccult stool is recommended Morbid obesity with BMI of 45.0-49.9, adult (Chronic) Pulmonary hypertension (Chronic) Chronic narcotic use (Chronic) Depression (Chronic) Gastroesophageal reflux disease (Chronic) Parathyroid abnormality (Chronic) History of PTCA (Chronic) Vitamin D deficiency (Chronic) Hyperlipidemia (Chronic) Thyroid nodule (Chronic) deemed to be benign. Benign essential hypertension (Chronic) CAD (coronary artery disease) (Chronic) RACHEL (obstructive sleep apnea) (Chronic) 17/13 cm of water Spinal stenosis of lumbar region at multiple levels (Chronic) Tobacco abuse (Chronic) Hospital Course and Treatment Imaging Results: 12/23/19 18:08 Diet: Consistent Carb - Calorie Controlled Is pt able to select menu?: Yes How many daily calories?: 1800 calorie Clinical Impression(s) from Imaging Studies Ankle X-Ray 12/20/19 14:58 IMPRESSION: Continued displaced fractures/dislocation of the ankle. Electronically Signed: J Carlos Rodgers MD at 15:38 EDT , Service support , Chest X-Ray 12/23/19 22:13 IMPRESSION: Normal x-ray examination of the chest. Electronically Signed: Sharon Reilly MD at 23:46 EDT Tel , Service support , Labs (Last 48 Hours) 12/31/19 01/01/20 01/01/20 21:24 06:13 11:11 WBC RBC Hgb Hct MCV MCH MCHC RDW Std Deviation RDW Coeff of Kaycee Plt Count MPV Immature Gran % (Auto) Neut % (Auto) Lymph % (Auto) [place] % (Auto) Eos % (Auto) Baso % (Auto) Absolute Neuts (auto) Absolute Lymphs (auto) Nucleated RBC % POC Glucose 191 H 164 H 169 H 01/01/20 01/01/20 01/02/20 16:49 20:59 05:15 WBC 9.4 RBC 3.52 L Hgb 10.4 L Hct 32.6 L MCV 92.6 MCH 29.5 MCHC 31.9 L RDW Std Deviation 49.1 H RDW Coeff of Kaycee 14.5 Plt Count 556 H MPV 9.5 Immature Gran % (Auto) 0.700 Neut % (Auto) 69.5 Lymph % (Auto) 14.4 L [place] % (Auto) 10.8 H Eos % (Auto) 3.9 Baso % (Auto) 0.7 Absolute Neuts (auto) 6.5 Absolute Lymphs (auto) 1.36 Nucleated RBC % 0 POC Glucose 179 H 216 H 01/02/20 01/02/20 01/02/20 06:02 11:04 16:30 WBC RBC Hgb Hct MCV MCH MCHC RDW Std Deviation RDW Coeff of Kaycee Plt Count MPV Immature Gran % (Auto) Neut % (Auto) Lymph % (Auto) [place] % (Auto) Eos % (Auto) Baso % (Auto) Absolute Neuts (auto) Absolute Lymphs (auto) Nucleated RBC % POC Glucose 141 H 135 H 173 H Operations: None Procedures: - - Open reduction internal fixation of left ankle trimalleolus fracture/Charcot Summary of Care Provided: The patient is a 54 year old Female with below past medical history hospitalized for left ankle fracture, syncope evaluation negative, admitted to TCU with debility, here for rehabilitation, strengthening, prior to ORIF left ankle fracture per Dr. Mitchell, prior to further therapy, then discharge home alone. 12/23/19 Dr. Mitchell Open reduction internal fixation of left ankle trimalleolus fracture/Charcot. 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 Patient Problems: Active and Suspected Problems (Last Reviewed 12/16/19 @ 21:[address] Jese Strauss, DO) Syncope (Acute) Closed left ankle fracture (Acute) Debility (Acute) Fall (Acute) - Physical Exam Vitals/I&O's: Vital Signs Temp Pulse Resp BP Pulse Ox 98.3 F 59 L 18 117/51 L 98 01/02/20 13:28 01/02/20 13:28 01/02/20 13:28 01/02/20 13:28 01/02/20 13:28 Oxygen Flow Rate (L/min) 3 Oxygen Delivery Method Nasal Cannula Weight: 114.39 kg Body Mass Index (BMI) 44.2 Finger Stick Blood Glucose 422 Intake and Output for Last 24 Hours 12/31/19 01/01/20 01/02/20 23:59 23:59 23:59 Intake Total 1640 / 1640 240 / 240 1080 / 1080 Output Total 1100 / 1100 1000 / 1000 Balance 540 / 540 -760 / -760 1080 / 1080 Microbiology Past 72 Hours 12/30/19 10:45 Mucosa - Nose - Final Laboratory Results 01/01/20 20:59: POC Glucose 216 H 01/02/20 05:15: WBC 9.4, RBC 3.52 L, Hgb 10.4 L, Hct 32.6 L, MCV 92.6, MCH 29.5, MCHC 31.9 L, RDW Std Deviation 49.1 H, RDW Coeff of Kaycee 14.5, Plt Count 556 H, MPV 9.5, Immature Gran % (Auto) 0.700, Neut % (Auto) 69.5, Lymph % (Auto) 14.4 L , [place] % (Auto) 10.8 H, Eos % (Auto) 3.9, Baso % (Auto) 0.7, Absolute Neuts (auto) 6.5, Absolute Lymphs (auto) 1.36, Nucleated RBC % 0 01/02/20 06:02: POC Glucose 141 H 01/02/20 11:04: POC Glucose 135 H 01/02/20 16:30: POC Glucose 173 H Current Medications Albuterol Sulfate (Albuterol 2.5 Mg/3 Ml Vial.Neb.) 2.5 mg INHALATION Q4H PRN PRN PRN Reason: Sob &/Or Wheezing Last Admin: 12/23/19 21:30 Dose: 2.5 mg Documented by: Amlodipine Besylate (Amlodipine 10 Mg Tablet) 10 mg PO DAILY [facility] Last Admin: 01/02/20 06:37 Dose: 10 mg Documented by: Apixaban (Apixaban 5 Mg Tablet) 5 mg PO BID [facility] Last Admin: 01/02/20 17:44 Dose: 5 mg Documented by: Atorvastatin Calcium (Atorvastatin Calcium 80 Mg Tablet) 80 mg PO QHS [facility] Last Admin: 01/01/20 19:55 Dose: 80 mg Documented by: Baclofen (Baclofen 10 Mg Tablet) 10 mg PO TID [facility] Last Admin: 01/02/20 14:34 Dose: 10 mg Documented by: Bisacodyl (Bisacodyl 10 Mg Suppository) 10 mg RECTAL DAILY PRN PRN Reason: Constipation Buspirone HCl (Buspirone 15 Mg Tablet) 30 mg PO BID [facility] Last Admin: 01/02/20 17:44 Dose: 30 mg Documented by: Calamine/Phenol (Menthol/Lanolin/Calamine/Znox 113 Gm Tube) 1 applic TOPICAL BID [facility]; Protocol Last Admin: 01/02/20 17:44 Dose: 1 applicatio Documented by: Cholecalciferol (Cholecalciferol (Vit D3) 1,000 Unit (25mcg)) [facility] Last Admin: 01/02/20 07:48 Dose: 2,000 unit Documented by: Clopidogrel Bisulfate (Clopidogrel Bisulfate 75 Mg Tablet) 75 mg PO DAILY [facility] Last Admin: 01/02/20 06:29 Dose: 75 mg Documented by: Furosemide (Furosemide 20 Mg Tablet) 20 mg PO DAILY [facility] Last Admin: 01/02/20 06:29 Dose: 20 mg Documented by: Hydrocortisone (Hydrocortisone 2.5% Crm) 1 applic TOPICAL TID PRN PRN; Protocol PRN Reason: ITCHING Last Admin: 01/02/20 14:35 Dose: 1 applicatio Documented by: Hydromorphone HCl (Hydromorphone 2 Mg Tablet) 4 mg PO Q3H PRN PRN PRN Reason: Pain Score 6-10 Last Admin: 01/02/20 17:42 Dose: 4 mg Documented by: Insulin Glargine (Insulin Glargine 100 Units/Ml Pen) 40 units SC BID [facility] Last Admin: 01/02/20 17:45 Dose: 40 u Documented by: Insulin Human Lispro (Insulin Lispro 100 Unit/Ml Insuln.Pen) 5 unit SC TIDAC [facility] Last Admin: 01/02/20 17:46 Dose: 5 units Documented by: Lactobacillus Acidophilus (Lactobacillus Acidophilus) 2 tablet PO BID [facility] Last Admin: 01/02/20 17:43 Dose: 2 tablet Documented by: Lisinopril (Lisinopril 20 Mg Tablet) 20 mg PO QHS [facility] Last Admin: 01/01/20 19:57 Dose: 20 mg Documented by: Metoprolol Succinate (Metoprolol(Xl)Succ 50 Mg Tablet) 50 mg PO DAILY [facility] Last Admin: 01/02/20 06:29 Dose: 50 mg Documented by: Mirabegron (Mirabegron 25 Mg Tab.Er.24h) 25 mg PO DAILY [facility] Last Admin: 01/02/20 06:31 Dose: 25 mg Documented by: Montelukast Sodium (Montelukast 10 Mg Tablet) 10 mg PO QHS [facility] Last Admin: 01/01/20 19:56 Dose: 10 mg Documented by: Nicotine (Nicotine 21 Mg Patch) 21 mg TRANSDERM. DAILY [facility] Last Admin: 01/02/20 06:28 Dose: 21 mg Documented by: Nitroglycerin (Nitroglycerin (Inpatient Use) 0.4 Mg Tab.Subl) 0.4 mg SUBLINGUAL Q5M PRN PRN Reason: CARDIAC/CHEST PAIN Nystatin (Nystatin Powder 15gm Bottle) 1 applic TOPICAL 0600,2200 [facility]; Protocol Last Admin: 01/02/20 06:37 Dose: 1 applicatio Documented by: Polyethylene Glycol (Polyethylene Glycol 3350 17 Gm Packet) 17 gm PO BID [facility] Last Admin: 01/02/20 17:49 Dose: 17 gm Documented by: Potassium Chloride (Potassium Chloride 10 Meq Tablet) 10 meq PO DAILYCM [facility] Last Admin: 01/02/20 07:47 Dose: 10 meq Documented by: Pregabalin (Pregabalin 75 Mg Capsule) 75 mg PO TID [facility] Last Admin: 01/02/20 14:35 Dose: 75 mg Documented by: Promethazine HCl (Promethazine 25 Mg Tablet) 12.5 - 25 mg PO BID PRN PRN PRN Reason: NAUSEA Risperidone (Risperidone 2 Mg Tablet) 4 mg PO QHS [facility] Last Admin: 01/01/20 19:56 Dose: 4 mg Documented by: Fluticasone/Salmeterol (Fluticasone/Salmeterol 232-14 Inhaler) 1 puff IH BID [facility] Last Admin: 01/02/20 17:46 Dose: 1 puff Documented by: Senna/Docusate Sodium (Senna/Docusate Sodium 1 Tablet) 2 tablet PO BID [facility] Last Admin: 01/02/20 17:45 Dose: 2 tablet Documented by: Sodium Chloride (0.9% Saline Lock 10 Ml Syringe) 10 - 40 ml IV UD PRN PRN Reason: SALINE FLUSH Last Admin: 12/27/19 07:05 Dose: 10 ml Documented by: Sucralfate (Sucralfate 1 Gm Tablet) 1 gm PO 1HR_ACHS [facility] Last Admin: 01/02/20 17:43 Dose: 1 gm Documented by: Tramadol HCl (Tramadol 50 Mg Tablet) 50 mg PO Q6H PRN PRN PRN Reason: Pain Score 1-5 Last Admin: 01/02/20 10:37 Dose: 50 mg Documented by: Trazodone HCl (Trazodone 100 Mg Tablet) 200 mg PO QHS [facility] Last Admin: 01/01/20 19:53 Dose: 200 mg Documented by: Umeclidinium [place] (Umeclidinium [place] Inhaler) 1 puff IH DAILY [facility] Last Admin: 01/02/20 06:30 Dose: 1 puff Documented by: Discharge Diet: No Restrictions Discharge Activity: Return to Normal Activity, May Shower, Use Walker Weight Bearing Status: No weight bearing Keep extremity elevated above heart level: Left Leg Call your doctor if you observe: Fever of 101 or Higher, Inability to urinate, Inability to have a bowel movement, Shortness of breath, Chest pain, Uncontrolled pain Home Medications: Medications to take at Discharge Atorvastatin Calcium [Lipitor] 80 mg PO QHS 08/22/15 Metoprolol(XL)Succ [Toprol Xl (Beta Trino)] 50 mg PO DAILY 08/22/15 Nitroglycerin 0.4 mg SL PRN PRN 11/08/16 amlodipine 10 mg tablet 10 mg PO DAILY tab 05/02/17 potassium chloride 10 mEq tablet,extended release(part/cryst) 10 meq PO DAILY #60 tab 06/16/17 Pregabalin [Lyrica] 75 mg PO TID 03/08/18 Risperidone 4 mg PO QHS 03/08/18 Tizanidine HCl 6 mg PO TID PRN PRN 03/08/18 traZODone [Desyrel] 200 mg PO QHS 03/08/18 Furosemide [Lasix] 20 mg PO DAILY 11/20/18 Lisinopril 20 mg PO QHS 11/20/18 Mirabegron [Myrbetriq] 25 mg PO DAILY 11/20/18 Apixaban [Eliquis] 5 mg PO BID 05/02/19 Fluticasone/Salmeterol [Advair Hfa 230-21 Mcg Inhaler] 2 puff INHALATION DAILY 05/02/19 albuterol sulfate 90 mcg/actuation aerosol inhaler 2 puff INHALATION Q6H PRN 06/27/19 buspirone 30 mg tablet 30 mg PO BID tab 06/27/19 sucralfate 1 gram tablet 1 g PO QACHS 06/27/19 Nystatin [Nystop] 1 applic TP 4X/DAY 08/22/19 proMETHazine tablet [Phenergan tablet] 12.5 - 25 mg PO BID PRN PRN 08/22/19 tiotropium bromide 2.5 mcg/actuation mist for inhalation 2 puff INHALATION DAILY #4 g 09/30/19 montelukast 10 mg tablet 10 mg PO QHS #30 tab 10/30/19 albuterol sulfate 2.5 mg INHALATION Q4H PRN #180 ml 12/11/19 Lactobacillus Acidophilus [Acidophilus] 2 tab PO BID 12/16/19 Insulin Glargine [Lantus SoloStar Pen] 40 units SC BID 12/18/19 Nicotine [Nicoderm Cq] 21 mg TRANSDERM. DAILY 12/18/19 Apixaban [Eliquis] 5 mg PO BID tab 01/02/20 HYDROmorphone tablet [Dilaudid] 2 mg PO Q3H PRN PRN 3 Days #18 tab 01/02/20 Hydrocortisone 2.5% Crm [Hytone] 1 applic TOPICAL TID PRN PRN #1 tube 01/02/20 Menthol/Lanolin/Calamine/Znox [Calmoseptine Ointment] 1 applic TOPICAL BID tube 01/02/20 traMADol [Ultram] 50 mg PO Q6H PRN PRN 3 Days #12 tablet 01/02/20 Following Prescriptions Were Given to Patient: HYDROmorphone tablet [Dilaudid] 2 mg PO Q3H PRN PRN 3 Days #18 tab PRN Reason: Pain Score 4-5 Transmission Status: Sent to [place] [id number] Hydrocortisone 2.5% Crm [Hytone] 1 applic TOPICAL TID PRN PRN #1 tube PRN Reason: Itching Transmission Status: Pending to [place] [address] traMADol [Ultram] 50 mg PO Q6H PRN PRN 3 Days #12 tablet PRN Reason: Pain Score 1-5 Transmission Status: Sent to [place] [address] Primary Care Physician: Janel Taylor MD [Primary Care Provider] - Please follow up with your Primary Care Physician in: 1 week. Please Follow Up With: Ge Mitchell DPM When: 1 week. Disposition: Home with Home Health Minutes spent on discharge:: 35 Patient Condition:: Stable Medical Necessity - Tobacco Use Smoking Status: Current every day smoker Tobacco Use: Cigarettes Meaningful Use Info Meaningful Use Diagnoses (Choose all that apply): None applicable
[2020-01-02] MEDS: traZODone 100 MG Tablet 200 MG PO (21:17)
[2020-01-02] MEDS: Atorvastatin Calcium 80 MG Tablet PO (21:20)
[2020-01-02] MEDS: Lisinopril 20 MG Tablet PO (21:20)
[2020-01-02] MEDS: Montelukast 10 MG Tablet PO (21:20)
[2020-01-02] MEDS: RisperiDONE 2 MG Tablet 4 MG PO (21:21)
[2020-01-02 21:30] LABS: Bedside Glucose 137 mg/dL (70-110)
[2020-01-02 21:50] VITALS: PULSE 77; RESP 18; O2SAT 95
--- NOTE | 2020-01-03 02:28 | CPS ---
offered bipap earlier to pt, pt declined. Tried to set up own machine because she was agreeable to the lower settings. But tubing has a hole in it. will get new tubing from sleep lab so her machine can be used tomorrow night.
[2020-01-03 05:00] VITALS: BP 78/48; PULSE 68; RESP 14; TEMP 37.2; O2SAT 98
[2020-01-03 06:40] LABS: Bedside Glucose 157 mg/dL (70-110)
--- NOTE | 2020-01-03 07:19 | NURSING ---
Patient was too drowsy this am to be give morning medication this nurse tired several time to wake patient up. Patient would open eyes slightly and close them back and states she's in pain during this time. Patient continues to ask for prn pain medication q3 and has been getting medication as patient request. Patient pain level is always 9/10 left ankle doesn't want ice but pillows under left leg. Rn aware.
[2020-01-03 07:30] VITALS: O2SAT 96
[2020-01-03] MEDS: HYDROmorphone 2 MG TABLET 4 MG PO ×4 (08:52→20:25)
[2020-01-03] MEDS: Pregabalin 75 MG Capsule PO ×3 (08:52→20:24)
[2020-01-03] MEDS: Senna/Docusate Sodium 1 Tablet 2 TABLET PO (08:53)
[2020-01-03] MEDS: Sucralfate 1 GM Tablet PO ×4 (08:53→20:21)
[2020-01-03] MEDS: Baclofen 10 MG Tablet PO ×3 (08:53→20:21)
[2020-01-03] MEDS: amLODIPine 10 MG Tablet PO (08:54)
[2020-01-03] MEDS: busPIRone 15 MG TABLET 30 MG PO ×2 (08:54→17:41)
[2020-01-03] MEDS: Mirabegron 25 MG TAB.ER.24H PO (08:54)
[2020-01-03] MEDS: Clopidogrel Bisulfate 75 MG Tablet PO (08:54)
[2020-01-03 08:55] VITALS: PULSE 64
[2020-01-03] MEDS: Metoprolol(XL)Succ 50 MG Tablet PO (08:55)
[2020-01-03] MEDS: Furosemide 20 MG Tablet PO (08:55)
[2020-01-03] MEDS: APIXABAN 5 MG TABLET PO ×2 (08:55→17:41)
[2020-01-03] MEDS: Insulin Lispro 100 UNIT/ML INSULN.PEN SC ×3 (08:58→17:43)
[2020-01-03] MEDS: Fluticasone/Salmeterol 232-14 Inhaler 1 PUFF IH ×2 (09:06→17:42)
[2020-01-03] MEDS: Umeclidinium Bromide Inhaler 1 PUFF IH (09:06)
[2020-01-03] MEDS: Menthol/Lanolin/Calamine/Znox 113 GM Tube 1 APPLIC TOPICAL ×2 (09:07→17:42)
--- NOTE | 2020-01-03 09:49 | NURSING ---
Pt refusing to wear oxygen at this time despite education, SPO2 94% RA
[2020-01-03 10:00] VITALS: PULSE 67; RESP 16; O2SAT 94
[2020-01-03 11:00] LABS: Bedside Glucose 214 mg/dL (70-110)
[2020-01-03] MEDS: traMADol 50 MG Tablet PO (11:37)
[2020-01-03 14:09] VITALS: BP 130/61; PULSE 83; RESP 16; TEMP 36.2; O2SAT 96
[2020-01-03 16:50] LABS: Bedside Glucose 136 mg/dL (70-110)
--- NOTE | 2020-01-03 18:39 | NURSING ---
Pt observed self-transferring, education provided from staff and explained importance of waiting for help for transferring
[2020-01-03] MEDS: RisperiDONE 2 MG Tablet 4 MG PO (20:24)
[2020-01-03] MEDS: traZODone 100 MG Tablet 200 MG PO (20:24)
[2020-01-03] MEDS: Atorvastatin Calcium 80 MG Tablet PO (20:24)
[2020-01-03] MEDS: Montelukast 10 MG Tablet PO (20:24)
[2020-01-03] MEDS: Lisinopril 20 MG Tablet PO (20:24)
[2020-01-03] MEDS: Nystatin Powder 15gm Bottle 1 APPLIC TOPICAL (20:29)
[2020-01-03 21:31] LABS: Bedside Glucose 124 mg/dL (70-110)
[2020-01-03 22:32] VITALS: RESP 12
--- NOTE | 2020-01-03 22:33 | CPS ---
pt put on bipap by nursing
[2020-01-04] VITALS (7 sets, daily range): BP systolic 106–123; BP diastolic 58–59; PULSE 70–83; RESP 12–18; TEMP 36.3–36.8; O2SAT 94–98
[2020-01-04] MEDS: HYDROmorphone 2 MG TABLET 4 MG PO ×6 (02:01→21:02)
[2020-01-04] MEDS: Pregabalin 75 MG Capsule PO ×3 (05:10→21:10)
[2020-01-04] MEDS: Fluticasone/Salmeterol 232-14 Inhaler 1 PUFF IH ×2 (05:11→17:29)
[2020-01-04] MEDS: Senna/Docusate Sodium 1 Tablet 2 TABLET PO ×2 (05:11→17:30)
[2020-01-04] MEDS: busPIRone 15 MG TABLET 30 MG PO ×2 (05:11→17:28)
[2020-01-04] MEDS: Baclofen 10 MG Tablet PO ×3 (05:11→21:12)
[2020-01-04] MEDS: Furosemide 20 MG Tablet PO (05:12)
[2020-01-04] MEDS: Metoprolol(XL)Succ 50 MG Tablet PO (05:12)
[2020-01-04] MEDS: amLODIPine 10 MG Tablet PO (05:12)
[2020-01-04] MEDS: Mirabegron 25 MG TAB.ER.24H PO (05:12)
[2020-01-04] MEDS: Clopidogrel Bisulfate 75 MG Tablet PO (05:12)
[2020-01-04] MEDS: APIXABAN 5 MG TABLET PO ×2 (05:12→17:29)
[2020-01-04] MEDS: Umeclidinium Bromide Inhaler 1 PUFF IH (05:15)
[2020-01-04] MEDS: Nystatin Powder 15gm Bottle 1 APPLIC TOPICAL ×2 (05:15→21:19)
[2020-01-04] MEDS: Menthol/Lanolin/Calamine/Znox 113 GM Tube 1 APPLIC TOPICAL ×2 (05:16→17:32)
--- NOTE | 2020-01-04 05:21 | NURSING ---
Nicotine patch right shoulder
[2020-01-04 06:31] LABS: Bedside Glucose 123 mg/dL (70-110)
[2020-01-04] MEDS: Insulin Lispro 100 UNIT/ML INSULN.PEN SC ×3 (08:27→17:37)
[2020-01-04] MEDS: Sucralfate 1 GM Tablet PO ×4 (08:29→21:10)
--- NOTE | 2020-01-04 08:59 | PCA ---
Went in to give pt breakfast at 8am, pt stated that she did not want her breakfast that she had an upset stomach at moment, i told pt that maybe she should try to eat something toast or something to make her stomach feel better. she was getting medication and taking it on a empty stomach could be why she was experiencing and upset stomach. pt looked up at me and said i haven't taken any pain meds, told me to set her tray on the sink which i did as i was exiting the room pt said can you ask the nurse if i can have some more pain meds? well, maybe i shouldn't since my stomach is upset i told her i would let the nurse know. i exited the room 8:05 pt rings out says that she has to use the restroom i walk into patients room as i enter the room she states that she threw up in her bedside commode, i look in her bedside commode and it has vomit in it, color was a brownish color emptied BSC and pt said well least i feel better, put her on the BSC she voided and got back into her recliner, i exited room 8:15 pt rang out asking for her breakfast went in and gave pt her breakfast tray, as i was exiting the room pt turned the call light on again and asked for sugar i got her sugar, 8:17 pt rang out call light asking for 2 cups of ice and a cup of coffee with 3 creams, i got them for pt asked if she needed anything else at this moment pt stated no i exited the room. 8:18 pt rang out and to speak to the nurse about giving her pain meds, i told her i let her nurse know she wanted some Meds
[2020-01-04] MEDS: proMETHazine 25 MG Tablet PO (09:32)
--- NOTE | 2020-01-04 09:33 | NURSING ---
PER COST REPORT CLERK PT HAS THREW UP TWICE. ONE BROWN LIQUID AND 2ND FOOD. PRN NAUSEA MED GIVEN. RN AWARE.
--- NOTE | 2020-01-04 09:55 | PCM.PROGNOTE ---
Patient Problems: Active and Suspected Problems (Last Reviewed 12/16/19 @ 21:[address] Jese Strauss, DO) Syncope (Acute) Closed left ankle fracture (Acute) Debility (Acute) Fall (Acute) Subjective: This 54-year-old female seen bedside in a transitional care unit for left open reduction internal fixation of ankle fracture performed by Dr. Mitchell. She denies fever, chill, chest pain, shortness of breath, calf pain. She rates her pain at worst is a 6 out of 10 however it has improved when she offload to keep pressure off of her outer incision site. Upon visit initiation, it is noted she is resting her foot and leg on the floor while she is seated in a chair. She has vomited twice this morning and relates she may have drank too much pop and coffee. She relates this used to happen her on a regular basis but not in the recent setting. - Physical Exam Vitals/I&O's: Vital Signs Temp Pulse Resp BP Pulse Ox 98.3 F 83 18 106/58 L 94 01/04/20 05:00 01/04/20 05:12 01/04/20 05:00 01/04/20 05:12 01/04/20 08:10 Oxygen Flow Rate (L/min) 3 Oxygen Delivery Method Room Air Weight: 114.39 kg Body Mass Index (BMI) 44.2 Finger Stick Blood Glucose 422 Intake and Output for Last 24 Hours 01/02/20 01/03/20 01/04/20 23:59 23:59 23:59 Intake Total 1540 / 1540 2560 / 2560 680 / 680 Output Total 600 / 600 Balance 1540 / 1540 1960 / 1960 680 / 680 General: Alert, Oriented x3, Cooperative HEENT: Atraumatic Extremities: No cyanosis, Capillary Refill Less than 3 Seconds, No Calf Tenderness - Negative Huey and De Souza sign bilateral, Diminished Peripheral Pulses, Edema - Decreased left lower extremity compared to earlier this week Skin: Incision - Well aligned and coapted medial incision without drainage or infection or streaking. The lateral incision has reduced moisture compared to earlier this week however her skin is peeling and there is serous drainage with hematogenous drainage noted. There is no purulence on expression., - - The central incision is devitalized and is no longer coapted. There is no erythema, odor or streaking at this site. Her skin in general is atrophic Musculoskeletal: No Tenderness to Palpation of Joints or Extremities, Muscle Wasting, Tenderness - Pain to palpate lateral repair site. Sagittal plane range of motion is smooth and gliding. Compartments are soft to palpate the left lower extremity. Active range of motion digits x5 left Neurological: - - Altered sensation to light touch Psych/Mental Status: Normal Affect, Appropriate, Anxious Laboratory Results 01/03/20 10:46: POC Glucose 214 H 01/03/20 16:44: POC Glucose 136 H 01/03/20 21:06: POC Glucose 124 H 01/04/20 06:24: POC Glucose 123 H Current Medications Albuterol Sulfate (Albuterol 2.5 Mg/3 Ml Vial.Neb.) 2.5 mg INHALATION Q4H PRN PRN PRN Reason: Sob &/Or Wheezing Last Admin: 12/23/19 21:30 Dose: 2.5 mg Documented by: Amlodipine Besylate (Amlodipine 10 Mg Tablet) 10 mg PO DAILY [facility] Last Admin: 01/04/20 05:12 Dose: 10 mg Documented by: Apixaban (Apixaban 5 Mg Tablet) 5 mg PO BID [facility] Last Admin: 01/04/20 05:12 Dose: 5 mg Documented by: Atorvastatin Calcium (Atorvastatin Calcium 80 Mg Tablet) 80 mg PO QHS [facility] Last Admin: 01/03/20 20:24 Dose: 80 mg Documented by: Baclofen (Baclofen 10 Mg Tablet) 10 mg PO TID [facility] Last Admin: 01/04/20 05:11 Dose: 10 mg Documented by: Bisacodyl (Bisacodyl 10 Mg Suppository) 10 mg RECTAL DAILY PRN PRN Reason: Constipation Buspirone HCl (Buspirone 15 Mg Tablet) 30 mg PO BID [facility] Last Admin: 01/04/20 05:11 Dose: 30 mg Documented by: Calamine/Phenol (Menthol/Lanolin/Calamine/Znox 113 Gm Tube) 1 applic TOPICAL BID [facility]; Protocol Last Admin: 01/04/20 05:16 Dose: 1 applicatio Documented by: Cholecalciferol (Cholecalciferol (Vit D3) 1,000 Unit (25mcg)) [facility] Last Admin: 01/04/20 08:31 Dose: 2,000 unit Documented by: Clopidogrel Bisulfate (Clopidogrel Bisulfate 75 Mg Tablet) 75 mg PO DAILY [facility] Last Admin: 01/04/20 05:12 Dose: 75 mg Documented by: Furosemide (Furosemide 20 Mg Tablet) 20 mg PO DAILY [facility] Last Admin: 01/04/20 05:12 Dose: 20 mg Documented by: Hydrocortisone (Hydrocortisone 2.5% Crm) 1 applic TOPICAL TID PRN PRN; Protocol PRN Reason: ITCHING Last Admin: 01/02/20 21:21 Dose: 1 applicatio Documented by: Hydromorphone HCl (Hydromorphone 2 Mg Tablet) 4 mg PO Q3H PRN PRN PRN Reason: Pain Score 6-10 Last Admin: 01/04/20 08:37 Dose: 4 mg Documented by: Insulin Glargine (Insulin Glargine 100 Units/Ml Pen) 40 units SC BID [facility] Last Admin: 01/04/20 06:39 Dose: 40 u Documented by: Insulin Human Lispro (Insulin Lispro 100 Unit/Ml Insuln.Pen) 5 unit SC TIDAC [facility] Last Admin: 01/04/20 08:27 Dose: 5 units Documented by: Lactobacillus Acidophilus (Lactobacillus Acidophilus) 2 tablet PO BID [facility] Last Admin: 01/04/20 05:11 Dose: 2 tablet Documented by: Lisinopril (Lisinopril 20 Mg Tablet) 20 mg PO QHS [facility] Last Admin: 01/03/20 20:24 Dose: 20 mg Documented by: Metoprolol Succinate (Metoprolol(Xl)Succ 50 Mg Tablet) 50 mg PO DAILY [facility] Last Admin: 01/04/20 05:12 Dose: 50 mg Documented by: Mirabegron (Mirabegron 25 Mg Tab.Er.24h) 25 mg PO DAILY [facility] Last Admin: 01/04/20 05:12 Dose: 25 mg Documented by: Montelukast Sodium (Montelukast 10 Mg Tablet) 10 mg PO QHS [facility] Last Admin: 01/03/20 20:24 Dose: 10 mg Documented by: Nicotine (Nicotine 21 Mg Patch) 21 mg TRANSDERM. DAILY [facility] Last Admin: 01/04/20 05:12 Dose: 21 mg Documented by: Nitroglycerin (Nitroglycerin (Inpatient Use) 0.4 Mg Tab.Subl) 0.4 mg SUBLINGUAL Q5M PRN PRN Reason: CARDIAC/CHEST PAIN Nystatin (Nystatin Powder 15gm Bottle) 1 applic TOPICAL 0600,2200 [facility]; Protocol Last Admin: 01/04/20 05:15 Dose: 1 applicatio Documented by: Polyethylene Glycol (Polyethylene Glycol 3350 17 Gm Packet) 17 gm PO BID [facility] Last Admin: 01/04/20 05:15 Dose: Not Given Documented by: Potassium Chloride (Potassium Chloride 10 Meq Tablet) 10 meq PO DAILYCM [facility] Last Admin: 01/04/20 08:32 Dose: 10 meq Documented by: Pregabalin (Pregabalin 75 Mg Capsule) 75 mg PO TID [facility] Last Admin: 01/04/20 05:10 Dose: 75 mg Documented by: Promethazine HCl (Promethazine 25 Mg Tablet) 12.5 - 25 mg PO BID PRN PRN PRN Reason: NAUSEA Last Admin: 01/04/20 09:32 Dose: 25 mg Documented by: Risperidone (Risperidone 2 Mg Tablet) 4 mg PO QHS [facility] Last Admin: 01/03/20 20:24 Dose: 4 mg Documented by: Fluticasone/Salmeterol (Fluticasone/Salmeterol 232-14 Inhaler) 1 puff IH BID [facility] Last Admin: 01/04/20 05:11 Dose: 1 puff Documented by: Senna/Docusate Sodium (Senna/Docusate Sodium 1 Tablet) 2 tablet PO BID [facility] Last Admin: 01/04/20 05:11 Dose: 2 tablet Documented by: Sodium Chloride (0.9% Saline Lock 10 Ml Syringe) 10 - 40 ml IV UD PRN PRN Reason: SALINE FLUSH Last Admin: 12/27/19 07:05 Dose: 10 ml Documented by: Sucralfate (Sucralfate 1 Gm Tablet) 1 gm PO 1HR_ACHS [facility] Last Admin: 01/04/20 08:29 Dose: 1 gm Documented by: Tramadol HCl (Tramadol 50 Mg Tablet) 50 mg PO Q6H PRN PRN PRN Reason: Pain Score 1-5 Last Admin: 01/03/20 11:37 Dose: 50 mg Documented by: Trazodone HCl (Trazodone 100 Mg Tablet) 200 mg PO QHS [facility] Last Admin: 01/03/20 20:24 Dose: 200 mg Documented by: Umeclidinium [place] (Umeclidinium [place] Inhaler) 1 puff IH DAILY [facility] Last Admin: 01/04/20 05:15 Dose: 1 puff Documented by: Medical Necessity - Tobacco Use Smoking Status: Current every day smoker Tobacco Use: Cigarettes Assessment/Plan All Active Problems (Last Reviewed 12/16/19 @ 21:[address] Jese Strauss, DO) Syncope (Acute) Closed left ankle fracture (Acute) Debility (Acute) Fall (Acute) Diarrhea (Resolved) Hypokalemia (Resolved) s/p left trimalleolar ankle fracture (DOS 12/23/2019, Dr. Mitchell) Compromised lateral incision site; no current signs of infection Uncontrolled Diabetes Tobacco use Multiple comorbidities Patient seen and examined Her vitals remained stable and she is afebrile. Her white blood cell count was 9.4 on 01-02-2020. Dressing changed. Betadine along incision, DSD, splint reapplied in a well-padded manner. To keep clean, dry, and intact. Some maceration noted to lateral incision. This is compromised. She was reassured no infection signs are noted. No weightbearing left foot/ankle, keep foot elevated as much as possible. She has some external rotation of the limbs I recommend additional offloading by hanging her ankle and foot over stacked pillows to keep pressure off of this site for pain management and maceration reduction. She is already started this. Smoking cessation is imperative for healing. This was discussed again today. Vitamin D lab is low - recommend continue vitamin D supplementation I recommend continued proper glucose control to help healing of ankle fracture. Reviewed increased risks of nonhealing and potential complications given patient's multiple comorbidities, including but not limited to tobacco use and uncontrolled diabetes. DVT prophylaxis and medical management per primary team is appreciated. It is noted that the work-up has been started for discharge planning. She was initially going to go to [facility] however is adamant about returning home. This is not recommended by her surgeon and there is significant concern for her ability to care for herself at home while living alone. Additionally her recent status changed to the lateral aspect of her surgical site would require additional attention. This was reviewed with director social today. The patient relates she would be amenable to considering staying in the transitional care unit if her insurance will cover it. She is concerned about going to [facility] because she reports her anxiety and Covid concerns are preventing her from wanting to move forward with this at this time. Podiatry will continue to follow biweekly to weekly. Please not hesitate to call if you have any questions. Veronica Smith DPM, [facility] [phone]
[2020-01-04] MEDS: traMADol 50 MG Tablet PO (11:03)
--- NOTE | 2020-01-04 11:06 | NURSING ---
PT REQUESTING PAIN MED 10/[address] GALINDO CHANGED DRSG THIS AM. PT REQUESTING PRN DILAUDID BUT NOT TIME FOR IT. PRN ULTRAM GIVEN PER PT REQUEST INSTEAD.
[2020-01-04 11:15] LABS: Bedside Glucose 131 mg/dL (70-110)
--- NOTE | 2020-01-04 15:56 | NURSING ---
Nicotine patch verified to pt right post shoulder.
[2020-01-04 16:40] LABS: Bedside Glucose 125 mg/dL (70-110)
[2020-01-04] MEDS: Polyethylene Glycol 3350 17 GM PACKET PO (17:29)
[2020-01-04] MEDS: Atorvastatin Calcium 80 MG Tablet PO (21:10)
[2020-01-04] MEDS: traZODone 100 MG Tablet 200 MG PO (21:11)
[2020-01-04] MEDS: RisperiDONE 2 MG Tablet 4 MG PO (21:12)
[2020-01-04] MEDS: Lisinopril 20 MG Tablet PO (21:13)
[2020-01-04] MEDS: Montelukast 10 MG Tablet PO (21:13)
[2020-01-04 21:45] LABS: Bedside Glucose 144 mg/dL (70-110)
[2020-01-05] VITALS (7 sets, daily range): BP systolic 115–116; BP diastolic 60–62; PULSE 70–75; RESP 12–18; TEMP 36.6–36.8; O2SAT 93–98
[2020-01-05] MEDS: HYDROmorphone 2 MG TABLET 4 MG PO ×6 (01:46→20:06)
[2020-01-05] MEDS: traMADol 50 MG Tablet PO ×2 (02:33→17:32)
[2020-01-05] MEDS: Senna/Docusate Sodium 1 Tablet 2 TABLET PO ×2 (04:10→17:37)
[2020-01-05] MEDS: Baclofen 10 MG Tablet PO ×3 (04:12→20:06)
[2020-01-05] MEDS: Sucralfate 1 GM Tablet PO ×4 (04:12→20:06)
[2020-01-05] MEDS: Furosemide 20 MG Tablet PO (04:12)
[2020-01-05] MEDS: APIXABAN 5 MG TABLET PO ×2 (04:12→17:37)
[2020-01-05] MEDS: busPIRone 15 MG TABLET 30 MG PO ×2 (04:12→17:36)
[2020-01-05] MEDS: Clopidogrel Bisulfate 75 MG Tablet PO (04:13)
[2020-01-05] MEDS: Mirabegron 25 MG TAB.ER.24H PO (04:13)
[2020-01-05] MEDS: Menthol/Lanolin/Calamine/Znox 113 GM Tube 1 APPLIC TOPICAL ×2 (04:13→17:35)
[2020-01-05] MEDS: Metoprolol(XL)Succ 50 MG Tablet PO (04:13)
[2020-01-05] MEDS: amLODIPine 10 MG Tablet PO (04:13)
[2020-01-05] MEDS: Nystatin Powder 15gm Bottle 1 APPLIC TOPICAL ×2 (04:14→20:09)
[2020-01-05] MEDS: Fluticasone/Salmeterol 232-14 Inhaler 1 PUFF IH ×2 (04:16→17:33)
[2020-01-05] MEDS: Pregabalin 75 MG Capsule PO ×3 (04:16→20:06)
[2020-01-05] MEDS: Umeclidinium Bromide Inhaler 1 PUFF IH (04:17)
[2020-01-05 06:20] LABS: Bedside Glucose 150 mg/dL (70-110)
[2020-01-05] MEDS: Insulin Lispro 100 UNIT/ML INSULN.PEN SC ×3 (08:08→17:34)
--- NOTE | 2020-01-05 08:14 | NURSING ---
nicotine patch verified to right delt. pt asking for pain med,09/12. pt does not show any signs of pain or grimacing just sleepy. after giving prn pain med pt asked when she could have her next prn pain med. explained to pt her times and when due. rn aware.
[2020-01-05 11:26] LABS: Bedside Glucose 156 mg/dL (70-110)
[2020-01-05 16:35] LABS: Bedside Glucose 128 mg/dL (70-110)
[2020-01-05] MEDS: Polyethylene Glycol 3350 17 GM PACKET PO (17:37)
[2020-01-05] MEDS: Montelukast 10 MG Tablet PO (20:06)
[2020-01-05] MEDS: RisperiDONE 2 MG Tablet 4 MG PO (20:06)
[2020-01-05] MEDS: traZODone 100 MG Tablet 200 MG PO (20:06)
[2020-01-05] MEDS: Lisinopril 20 MG Tablet PO (20:06)
[2020-01-05] MEDS: Atorvastatin Calcium 80 MG Tablet PO (20:06)
[2020-01-05 21:26] LABS: Bedside Glucose 160 mg/dL (70-110)
[2020-01-06] MEDS: HYDROmorphone 2 MG TABLET 4 MG PO ×7 (00:10→21:32)
[2020-01-06] MEDS: traMADol 50 MG Tablet PO ×3 (02:18→19:30)
[2020-01-06 03:35] VITALS: BP 121/64; PULSE 69; RESP 18; TEMP 36.6; O2SAT 92
[2020-01-06] MEDS: Pregabalin 75 MG Capsule PO ×3 (04:06→19:42)
[2020-01-06] MEDS: Umeclidinium Bromide Inhaler 1 PUFF IH (04:08)
[2020-01-06] MEDS: Fluticasone/Salmeterol 232-14 Inhaler 1 PUFF IH ×2 (04:08→17:08)
[2020-01-06 04:09] VITALS: BP 121/64; PULSE 69
[2020-01-06] MEDS: amLODIPine 10 MG Tablet PO (04:09)
[2020-01-06] MEDS: APIXABAN 5 MG TABLET PO ×2 (04:09→17:09)
[2020-01-06] MEDS: Sucralfate 1 GM Tablet PO ×4 (04:09→19:33)
[2020-01-06] MEDS: Metoprolol(XL)Succ 50 MG Tablet PO (04:09)
[2020-01-06] MEDS: Furosemide 20 MG Tablet PO (04:09)
[2020-01-06] MEDS: Senna/Docusate Sodium 1 Tablet 2 TABLET PO (04:09)
[2020-01-06] MEDS: Clopidogrel Bisulfate 75 MG Tablet PO (04:09)
[2020-01-06] MEDS: busPIRone 15 MG TABLET 30 MG PO ×2 (04:10→17:08)
[2020-01-06] MEDS: Baclofen 10 MG Tablet PO ×3 (04:10→19:34)
[2020-01-06] MEDS: Mirabegron 25 MG TAB.ER.24H PO (04:10)
[2020-01-06] MEDS: Menthol/Lanolin/Calamine/Znox 113 GM Tube 1 APPLIC TOPICAL ×2 (04:14→17:09)
[2020-01-06] MEDS: Nystatin Powder 15gm Bottle 1 APPLIC TOPICAL ×2 (04:14→19:37)
[2020-01-06 06:35] LABS: Bedside Glucose 123 mg/dL (70-110)
[2020-01-06 07:18] VITALS: O2SAT 95
[2020-01-06] MEDS: Insulin Lispro 100 UNIT/ML INSULN.PEN SC ×3 (08:06→17:11)
[2020-01-06 10:51] LABS: Bedside Glucose 150 mg/dL (70-110)
--- NOTE | 2020-01-06 11:23 | CASEMGMT ---
Social Work Received message over the weekend that Dr. Smith visited pt and checked wound. expressed concerns with pt discharging home so oon and is recommending pt remain in TCU for continued care. Spoke with pt to follow up on wishes. Pt stated she did talk with the dr and understands the risks of going home too early and that she would like to remain in TCU for continued wound care. Explained insurance update is this date and will recommend continued stay vs DC. Will continue to follow. Soraya Petersen, [employer] [facility] [facility]
[2020-01-06 13:37] VITALS: BP 127/60; PULSE 68; RESP 18; TEMP 36.9; O2SAT 97
[2020-01-06 16:25] LABS: Bedside Glucose 140 mg/dL (70-110)
--- NOTE | 2020-01-06 17:43 | PCM.PROGNOTE ---
Patient Problems: Active and Suspected Problems (Last Reviewed 12/16/19 @ 21:[address] Jese Strauss, DO) Syncope (Acute) Closed left ankle fracture (Acute) Debility (Acute) Fall (Acute) Subjective: This 54-year-old female seen bedside in a transitional care unit for left open reduction internal fixation of ankle fracture performed by Dr. Mitchell. She denies fever, chill, chest pain, shortness of breath, calf pain. - Physical Exam Vitals/I&O's: Vital Signs Temp Pulse Resp BP Pulse Ox 98.4 F 68 18 127/60 H 97 01/06/20 13:37 01/06/20 13:37 01/06/20 13:37 01/06/20 13:37 01/06/20 13:37 Oxygen Flow Rate (L/min) 3 Oxygen Delivery Method Nasal Cannula Weight: 114.39 kg Body Mass Index (BMI) 44.2 Finger Stick Blood Glucose 422 Intake and Output for Last 24 Hours 01/05/20 01/05/20 01/06/20 00:59 23:59 23:59 Intake Total 1200 / 1200 Output Total 1475 / 1475 Balance -275 / -275 General: Alert, Oriented x3 HEENT: Atraumatic Extremities: No clubbing, No cyanosis, Capillary Refill Less than 3 Seconds, No Calf Tenderness, Diminished Peripheral Pulses, Edema Skin: Incision - Well aligned and coapted medial incision without drainage or infection or streaking. On the lateral incision her skin is peeling and there is serous drainage with yellow to green tint noted. The surrounding skin is erythematou and warmer than contralateral side There is no purulence on expression., - Musculoskeletal: No Tenderness to Palpation of Joints or Extremities, Muscle Wasting, Tenderness, - - Pain to palpate lateral repair site. Sagittal plane range of motion is smooth and gliding. Compartments are soft to palpate the left lower extremity. Active range of motion digits x5 left Neurological: - - Altered sensation to light touch Psych/Mental Status: Normal Affect, Appropriate Laboratory Results 01/05/20 21:14: POC Glucose 160 H 01/06/20 06:24: POC Glucose 123 H 01/06/20 10:38: POC Glucose 150 H 01/06/20 15:48: POC Glucose 140 H Current Medications Albuterol Sulfate (Albuterol 2.5 Mg/3 Ml Vial.Neb.) 2.5 mg INHALATION Q4H PRN PRN PRN Reason: Sob &/Or Wheezing Last Admin: 12/23/19 21:30 Dose: 2.5 mg Documented by: Amlodipine Besylate (Amlodipine 10 Mg Tablet) 10 mg PO DAILY [facility] Last Admin: 01/06/20 04:09 Dose: 10 mg Documented by: Apixaban (Apixaban 5 Mg Tablet) 5 mg PO BID [facility] Last Admin: 01/06/20 17:09 Dose: 5 mg Documented by: Atorvastatin Calcium (Atorvastatin Calcium 80 Mg Tablet) 80 mg PO QHS [facility] Last Admin: 01/05/20 20:06 Dose: 80 mg Documented by: Baclofen (Baclofen 10 Mg Tablet) 10 mg PO TID [facility] Last Admin: 01/06/20 13:37 Dose: 10 mg Documented by: Bisacodyl (Bisacodyl 10 Mg Suppository) 10 mg RECTAL DAILY PRN PRN Reason: Constipation Buspirone HCl (Buspirone 15 Mg Tablet) 30 mg PO BID [facility] Last Admin: 01/06/20 17:08 Dose: 30 mg Documented by: Calamine/Phenol (Menthol/Lanolin/Calamine/Znox 113 Gm Tube) 1 applic TOPICAL BID [facility]; Protocol Last Admin: 01/06/20 17:09 Dose: 1 applicatio Documented by: Cholecalciferol (Cholecalciferol (Vit D3) 1,000 Unit (25mcg)) [facility] Last Admin: 01/06/20 08:07 Dose: 2,000 unit Documented by: Clopidogrel Bisulfate (Clopidogrel Bisulfate 75 Mg Tablet) 75 mg PO DAILY [facility] Last Admin: 01/06/20 04:09 Dose: 75 mg Documented by: Furosemide (Furosemide 20 Mg Tablet) 20 mg PO DAILY [facility] Last Admin: 01/06/20 04:09 Dose: 20 mg Documented by: Hydrocortisone (Hydrocortisone 2.5% Crm) 1 applic TOPICAL TID PRN PRN; Protocol PRN Reason: ITCHING Last Admin: 01/02/20 21:21 Dose: 1 applicatio Documented by: Hydromorphone HCl (Hydromorphone 2 Mg Tablet) 4 mg PO Q3H PRN PRN PRN Reason: Pain Score 6-10 Last Admin: 01/06/20 17:06 Dose: 4 mg Documented by: Insulin Glargine (Insulin Glargine 100 Units/Ml Pen) 40 units SC BID [facility] Last Admin: 01/06/20 17:11 Dose: 40 u Documented by: Insulin Human Lispro (Insulin Lispro 100 Unit/Ml Insuln.Pen) 5 unit SC TIDAC [facility] Last Admin: 01/06/20 17:11 Dose: 5 units Documented by: Lactobacillus Acidophilus (Lactobacillus Acidophilus) 2 tablet PO BID [facility] Last Admin: 01/06/20 17:08 Dose: 2 tablet Documented by: Lisinopril (Lisinopril 20 Mg Tablet) 20 mg PO QHS [facility] Last Admin: 01/05/20 20:06 Dose: 20 mg Documented by: Metoprolol Succinate (Metoprolol(Xl)Succ 50 Mg Tablet) 50 mg PO DAILY [facility] Last Admin: 01/06/20 04:09 Dose: 50 mg Documented by: Mirabegron (Mirabegron 25 Mg Tab.Er.24h) 25 mg PO DAILY [facility] Last Admin: 01/06/20 04:10 Dose: 25 mg Documented by: Montelukast Sodium (Montelukast 10 Mg Tablet) 10 mg PO QHS [facility] Last Admin: 01/05/20 20:06 Dose: 10 mg Documented by: Nicotine (Nicotine 21 Mg Patch) 21 mg TRANSDERM. DAILY [facility] Last Admin: 01/06/20 04:08 Dose: 21 mg Documented by: Nitroglycerin (Nitroglycerin (Inpatient Use) 0.4 Mg Tab.Subl) 0.4 mg SUBLINGUAL Q5M PRN PRN Reason: CARDIAC/CHEST PAIN Nystatin (Nystatin Powder 15gm Bottle) 1 applic TOPICAL 0600,2200 [facility]; Protocol Last Admin: 01/06/20 04:14 Dose: 1 applicatio Documented by: Polyethylene Glycol (Polyethylene Glycol 3350 17 Gm Packet) 17 gm PO BID [facility] Last Admin: 01/06/20 17:09 Dose: Not Given Documented by: Potassium Chloride (Potassium Chloride 10 Meq Tablet) 10 meq PO DAILYCM [facility] Last Admin: 01/06/20 08:07 Dose: 10 meq Documented by: Pregabalin (Pregabalin 75 Mg Capsule) 75 mg PO TID [facility] Last Admin: 01/06/20 13:46 Dose: 75 mg Documented by: Promethazine HCl (Promethazine 25 Mg Tablet) 12.5 - 25 mg PO BID PRN PRN PRN Reason: NAUSEA Last Admin: 01/04/20 09:32 Dose: 25 mg Documented by: Risperidone (Risperidone 2 Mg Tablet) 4 mg PO QHS [facility] Last Admin: 01/05/20 20:06 Dose: 4 mg Documented by: Fluticasone/Salmeterol (Fluticasone/Salmeterol 232-14 Inhaler) 1 puff IH BID [facility] Last Admin: 01/06/20 17:08 Dose: 1 puff Documented by: Senna/Docusate Sodium (Senna/Docusate Sodium 1 Tablet) 2 tablet PO BID [facility] Last Admin: 01/06/20 17:09 Dose: Not Given Documented by: Sodium Chloride (0.9% Saline Lock 10 Ml Syringe) 10 - 40 ml IV UD PRN PRN Reason: SALINE FLUSH Last Admin: 12/27/19 07:05 Dose: 10 ml Documented by: Sucralfate (Sucralfate 1 Gm Tablet) 1 gm PO 1HR_ACHS [facility] Last Admin: 01/06/20 16:19 Dose: 1 gm Documented by: Tramadol HCl (Tramadol 50 Mg Tablet) 50 mg PO Q6H PRN PRN PRN Reason: Pain Score 1-5 Last Admin: 01/06/20 08:30 Dose: 50 mg Documented by: Trazodone HCl (Trazodone 100 Mg Tablet) 200 mg PO QHS [facility] Last Admin: 01/05/20 20:06 Dose: 200 mg Documented by: Umeclidinium [place] (Umeclidinium [place] Inhaler) 1 puff IH DAILY [facility] Last Admin: 01/06/20 04:08 Dose: 1 puff Documented by: Varenicline (Varenicline 0.5 Mg Tablet) 0.5 mg PO DAILY [facility] Stop: 01/10/20 06:01 Varenicline (Varenicline 1 Mg Tablet) 1 mg PO BID [facility] Medical Necessity - Tobacco Use Smoking Status: Current every day smoker Tobacco Use: Cigarettes Assessment/Plan All Active Problems (Last Reviewed 12/16/19 @ 21:[address] Jese Strauss, DO) Difficulty in walking, not elsewhere classified (Acute) Syncope (Acute) Closed left ankle fracture (Acute) Debility (Acute) Fall (Acute) Diarrhea (Resolved) Hypokalemia (Resolved) s/p left trimalleolar ankle fracture (DOS 12/23/2019, Dr. Mitchell) Compromised lateral incision site Uncontrolled Diabetes Tobacco use Multiple comorbidities Patient seen and examined Her vitals remained stable and she is afebrile. Her white blood cell count was 9.4 on 01-02-2020. lateral incision has quite a bit of serous to yellow green drainage noted. Culture ordered. Surrounding skin is edematous, erythematous, and warmer than contralateral side Order Cx Recommend repeat CBC and start antibiotic Dressing changed. Betadine along incision, DSD, splint reapplied in a well-padded manner. To keep clean, dry, and intact. Some maceration noted to lateral incision. This is compromised. Concerned for possible infection No weightbearing left foot/ankle, keep foot elevated as much as possible. She has some external rotation of the limbs I recommend additional offloading by hanging her ankle and foot over stacked pillows to keep pressure off of this site for pain management and maceration reduction. She is already started this. Smoking cessation is imperative for healing. This was discussed again today. Vitamin D lab is low - recommend continue vitamin D supplementation I recommend continued proper glucose control to help healing of ankle fracture. Reviewed increased risks of nonhealing and potential complications given patient's multiple comorbidities, including but not limited to tobacco use and uncontrolled diabetes. DVT prophylaxis and medical management per primary team is appreciated. Patient relates she is awaiting insurance to get back to her as far as staying in TCU longer Podiatry will continue to follow biweekly. Please not hesitate to call if you have any questions.
[2020-01-06 19:33] LABS: Absolute Lymphocyte Count 1.45 X10^3/uL (0.83-4.51); Basophil# 0.09 X10^3/uL; Basophil% 0.8 % (0-1); Eosinophil# 0.29 X10^3/uL; Eosinophils% 2.6 % (0-5); Hematocrit 31.8 % (37-47); Hemoglobin 10.5 g/dL (12.0-15.0); Lymphocyte # 1.45 X10^3/ul (4.0); Mean Corpuscular Hgb 29.8 pg (27.0-32.0); Mean Corpuscular Volume 90.3 fL (81-99); Mean Platelet Vol. 9.2 fl (6.2-12.0); Monocyte# 1.25 X10^3/uL; Monocyte% 11.2 % (0-10); NRBC Flagged by Analyzer 0 % (0-5); Neutrophil # 8.01 X10^3/uL (2.7-7.7); Neutrophil % 71.8 % (47-70); Platelet Count 540 K/mm3 (150-450); RBC Distribution Width CV 14.6 % (11.6-14.6); RBC Distribution Width SD 48.6 fl (35.1-43.9); Red Blood Count 3.52 M/mm3 (4.2-5.4); White Blood Count 11.2 K/mm3 (4.4-11.0)
[2020-01-06] MEDS: traZODone 100 MG Tablet 200 MG PO (19:33)
[2020-01-06] MEDS: Atorvastatin Calcium 80 MG Tablet PO (19:34)
[2020-01-06] MEDS: RisperiDONE 2 MG Tablet 4 MG PO (19:36)
[2020-01-06] MEDS: Montelukast 10 MG Tablet PO (19:37)
[2020-01-06] MEDS: Lisinopril 20 MG Tablet PO (19:38)
[2020-01-06 21:55] LABS: Bedside Glucose 181 mg/dL (70-110)
[2020-01-06 23:20] VITALS: PULSE 70; RESP 12; RESP 14; O2SAT 96
[2020-01-07 05:00] VITALS: BP 148/86; PULSE 76; RESP 18; TEMP 36.6; O2SAT 93
[2020-01-07 06:46] LABS: Bedside Glucose 127 mg/dL (70-110)
[2020-01-07] MEDS: Pregabalin 75 MG Capsule PO ×3 (06:48→19:55)
[2020-01-07] MEDS: HYDROmorphone 2 MG TABLET 4 MG PO ×4 (06:48→19:45)
[2020-01-07] MEDS: Mirabegron 25 MG TAB.ER.24H PO (06:50)
[2020-01-07] MEDS: APIXABAN 5 MG TABLET PO ×2 (06:50→17:10)
[2020-01-07] MEDS: amLODIPine 10 MG Tablet PO (06:50)
[2020-01-07] MEDS: Baclofen 10 MG Tablet PO ×3 (06:50→19:56)
[2020-01-07] MEDS: Clopidogrel Bisulfate 75 MG Tablet PO (06:50)
[2020-01-07] MEDS: Senna/Docusate Sodium 1 Tablet 2 TABLET PO ×2 (06:50→17:11)
[2020-01-07] MEDS: Sucralfate 1 GM Tablet PO ×4 (06:50→19:56)
[2020-01-07] MEDS: Furosemide 20 MG Tablet PO (06:50)
[2020-01-07] MEDS: busPIRone 15 MG TABLET 30 MG PO ×2 (06:52→17:10)
[2020-01-07] MEDS: Umeclidinium Bromide Inhaler 1 PUFF IH (06:54)
[2020-01-07] MEDS: Fluticasone/Salmeterol 232-14 Inhaler 1 PUFF IH ×2 (06:54→17:11)
[2020-01-07] MEDS: Varenicline 0.5 MG Tablet PO (06:54)
[2020-01-07 06:55] VITALS: O2SAT 92
[2020-01-07] MEDS: Nystatin Powder 15gm Bottle 1 APPLIC TOPICAL ×2 (06:55→19:58)
[2020-01-07] MEDS: Menthol/Lanolin/Calamine/Znox 113 GM Tube 1 APPLIC TOPICAL ×2 (06:55→17:13)
[2020-01-07 07:22] VITALS: BP 148/86; PULSE 76
[2020-01-07] MEDS: Metoprolol(XL)Succ 50 MG Tablet PO (07:22)
--- NOTE | 2020-01-07 07:24 | PCA ---
2 staff went in to patients room @ 6:50a to get her up as her request. I asked Crystal if she had to go to the bathroom, & she said no. We proceded to wash her up. When we finished washing her up, we put her in the w/c. Within in 30 seconds, she said she had to poop. 7:00a. Nurse gave her coffee, pop, ice & a straw, plus her pain pill. 7:25 Crystal rang out again asking for more coffee
[2020-01-07] MEDS: Insulin Lispro 100 UNIT/ML INSULN.PEN SC ×3 (09:09→17:13)
[2020-01-07] MEDS: traMADol 50 MG Tablet PO ×2 (09:09→17:17)
[2020-01-07 10:15] VITALS: PULSE 74; RESP 18; O2SAT 97
[2020-01-07 11:00] LABS: Bedside Glucose 238 mg/dL (70-110)
--- NOTE | 2020-01-07 12:55 | RAD_ITS ---
STUDY: X-RAY - LEFT ANKLE REASON FOR EXAM: Female, 54 years old. F/U FROM ANKLE SURGERY DONE ON 12/23/19. TECHNIQUE: 3 view(s) of the ankle. COMPARISON: 12/23/2019 FINDINGS: Postsurgical changes are noted status post open reduction internal fixation of previously noted fractures of the distal tibial and fibular shafts with indwelling orthopedic hardware. Fracture fragments are in near anatomic alignment and position. No appreciable callus deposition seen at this time. Diffuse bimalleolar soft tissue swelling is seen. Increasing soft tissue swelling overlying the lateral malleolus since prior study of uncertain etiology. RAD/Ankle min 3 Views IMPRESSION: Status post open reduction internal fixation of distal tibial and fibular fractures. Increasing soft tissue swelling overlying the lateral malleolus of uncertain etiology. No definitive evidence for acute osteomyelitis however three-phase bone scan would be helpful for further evaluation if clinically warranted Electronically Signed: Ge Giles MD at 16:51 EST , Service support ,
--- NOTE | 2020-01-07 13:01 | NURSING ---
DR. GALINDO IN TO SEE PT AND REDRESS ANKLE.
--- NOTE | 2020-01-07 13:32 | PN_ITS ---
Patient Problems: Active and Suspected Problems (Last Reviewed 12/16/19 @ 21:[address] Jese Strauss, DO) Syncope (Acute) Closed left ankle fracture (Acute) Debility (Acute) Fall (Acute) Subjective: This 54-year-old female seen bedside in a transitional care unit for left open reduction internal fixation of ankle fracture performed by Dr. Mitchell. She denies fever, chill, chest pain, shortness of breath, calf pain. Her pain is rated as 6/10 at worse and has been getting better the past day. She denies vomiting. She was working with therapy this afternoon. - Physical Exam Vitals/I&O's: Vital Signs Temp Pulse Resp BP Pulse Ox 97.8 F 74 18 148/86 H 97 01/07/20 05:00 01/07/20 10:15 01/07/20 10:15 01/07/20 07:22 01/07/20 10:15 Oxygen Flow Rate (L/min) 3 Oxygen Delivery Method Nasal Cannula Weight: 115.269 kg Body Mass Index (BMI) 44.2 Finger Stick Blood Glucose 422 Intake and Output for Last 24 Hours 01/05/20 01/06/20 01/07/20 23:59 23:59 23:59 Intake Total 1840 / 1840 1300 / 1300 Output Total 1475 / 1475 600 / 600 Balance 365 / 365 700 / 700 General: Alert, Oriented x3, Cooperative HEENT: Atraumatic Skin: Incision - Medial: Well aligned and coapted with no gapping, necrosis infection or compromise. Lateral; well aligned with partial coaptation noted. There is devitalized tissue with fibrous distal third and proximal. Incision eschar. There is no purulence on expression or odor., - - This area is warm to touch warm to touch without june streaking. No bogginess or fluctuance on palpation. Compartments remain soft to palpate. This is consistent with compromised tissue and infection Musculoskeletal: Muscle Wasting, Tenderness - Surgical site, - - Active range of motion ankle in sagittal plane smooth and gliding. Active range of motion digits left x5 Neurological: - - Altered sensation to light touch Psych/Mental Status: Normal Affect, Appropriate, Anxious Microbiology Past 72 Hours 01/06/20 19:05 Wound Abcess - No Site/Description Given Gram Stain - Final 01/06/20 19:05 Wound Abcess - No Site/Description Given Wound Culture - Preliminary Gram positive organism Laboratory Results 01/06/20 15:48: POC Glucose 140 H 01/06/20 19:14: WBC 11.2 H, RBC 3.52 L, Hgb 10.5 L, Hct 31.8 L, MCV 90.3, MCH 29.8, MCHC 33.0, RDW Std Deviation 48.6 H, RDW Coeff of Kaycee 14.6, Plt Count 540 H, MPV 9.2, Immature Gran % (Auto) 0.600, Neut % (Auto) 71.8 H, Lymph % (Auto) 13.0 L, [place] % (Auto) 11.2 H, Eos % (Auto) 2.6, Baso % (Auto) 0.8, Absolute Neuts (auto) 8.0 H, Absolute Lymphs (auto) 1.45, Nucleated RBC % 0 01/06/20 21:26: POC Glucose 181 H 01/07/20 06:39: POC Glucose 127 H 01/07/20 10:47: POC Glucose 238 H Current Medications Albuterol Sulfate (Albuterol 2.5 Mg/3 Ml Vial.Neb.) 2.5 mg INHALATION Q4H PRN PRN PRN Reason: Sob &/Or Wheezing Last Admin: 12/23/19 21:30 Dose: 2.5 mg Documented by: Amlodipine Besylate (Amlodipine 10 Mg Tablet) 10 mg PO DAILY [facility] [place] Last Admin: 01/07/20 06:50 Dose: 10 mg Documented by: Apixaban (Apixaban 5 Mg Tablet) 5 mg PO BID [facility] [place] Last Admin: 01/07/20 06:50 Dose: 5 mg Documented by: Atorvastatin Calcium (Atorvastatin Calcium 80 Mg Tablet) 80 mg PO QHS [facility] [place] Last Admin: 01/06/20 19:34 Dose: 80 mg Documented by: Baclofen (Baclofen 10 Mg Tablet) 10 mg PO TID [facility] [place] Last Admin: 01/07/20 13:25 Dose: 10 mg Documented by: Bisacodyl (Bisacodyl 10 Mg Suppository) 10 mg RECTAL DAILY PRN PRN Reason: Constipation Buspirone HCl (Buspirone 15 Mg Tablet) 30 mg PO BID [facility] [place] Last Admin: 01/07/20 06:52 Dose: 30 mg Documented by: Calamine/Phenol (Menthol/Lanolin/Calamine/Znox 113 Gm Tube) 1 applic TOPICAL BID [facility] [place]; Protocol Last Admin: 01/07/20 06:55 Dose: 1 applicatio Documented by: Cholecalciferol (Cholecalciferol (Vit D3) 1,000 Unit (25mcg)) 2,000 unit PO DAILYCM [facility] [place] Last Admin: 01/07/20 09:11 Dose: 2,000 unit Documented by: Clopidogrel Bisulfate (Clopidogrel Bisulfate 75 Mg Tablet) 75 mg PO DAILY [facility] [place] Last Admin: 01/07/20 06:50 Dose: 75 mg Documented by: Furosemide (Furosemide 20 Mg Tablet) 20 mg PO DAILY [facility] [place] Last Admin: 01/07/20 06:50 Dose: 20 mg Documented by: Hydrocortisone (Hydrocortisone 2.5% Crm) 1 applic TOPICAL TID PRN PRN; Protocol PRN Reason: ITCHING Last Admin: 01/02/20 21:21 Dose: 1 applicatio Documented by: Hydromorphone HCl (Hydromorphone 2 Mg Tablet) 4 mg PO Q3H PRN PRN PRN Reason: Pain Score 6-10 Last Admin: 01/07/20 10:32 Dose: 4 mg Documented by: Insulin Glargine (Insulin Glargine 100 Units/Ml Pen) 40 units SC BID [facility] [place] Last Admin: 01/07/20 06:56 Dose: 40 u Documented by: Insulin Human Lispro (Insulin Lispro 100 Unit/Ml Insuln.Pen) 5 unit SC TIDAC [facility] [place] Last Admin: 01/07/20 11:12 Dose: 5 units Documented by: Lactobacillus Acidophilus (Lactobacillus Acidophilus) 2 tablet PO BID [facility] [place] Last Admin: 01/07/20 06:50 Dose: 2 tablet Documented by: Lisinopril (Lisinopril 20 Mg Tablet) 20 mg PO QHS [facility] [place] Last Admin: 01/06/20 19:38 Dose: 20 mg Documented by: Metoprolol Succinate (Metoprolol(Xl)Succ 50 Mg Tablet) 50 mg PO DAILY [facility] [place] Last Admin: 01/07/20 07:22 Dose: 50 mg Documented by: Mirabegron (Mirabegron 25 Mg Tab.Er.24h) 25 mg PO DAILY [facility] [place] Last Admin: 01/07/20 06:50 Dose: 25 mg Documented by: Montelukast Sodium (Montelukast 10 Mg Tablet) 10 mg PO QHS [facility] [place] Last Admin: 01/06/20 19:37 Dose: 10 mg Documented by: Nicotine (Nicotine 21 Mg Patch) 21 mg TRANSDERM. DAILY [facility] [place] Last Admin: 01/07/20 06:49 Dose: 21 mg Documented by: Nitroglycerin (Nitroglycerin (Inpatient Use) 0.4 Mg Tab.Subl) 0.4 mg SUBLINGUAL Q5M PRN PRN Reason: CARDIAC/CHEST PAIN Nystatin (Nystatin Powder 15gm Bottle) 1 applic TOPICAL 0600,2200 [facility] [place]; Protocol Last Admin: 01/07/20 06:55 Dose: 1 applicatio Documented by: Polyethylene Glycol (Polyethylene Glycol 3350 17 Gm Packet) 17 gm PO BID [facility] [place] Last Admin: 01/07/20 06:54 Dose: Not Given Documented by: Potassium Chloride (Potassium Chloride 10 Meq Tablet) 10 meq PO DAILYCM [facility] [place] Last Admin: 01/07/20 09:11 Dose: 10 meq Documented by: Pregabalin (Pregabalin 75 Mg Capsule) 75 mg PO TID [facility] [place] Last Admin: 01/07/20 13:24 Dose: 75 mg Documented by: Promethazine HCl (Promethazine 25 Mg Tablet) 12.5 - 25 mg PO BID PRN PRN PRN Reason: NAUSEA Last Admin: 01/04/20 09:32 Dose: 25 mg Documented by: Risperidone (Risperidone 2 Mg Tablet) 4 mg PO QHS [facility] [place] Last Admin: 01/06/20 19:36 Dose: 4 mg Documented by: Fluticasone/Salmeterol (Fluticasone/Salmeterol 232-14 Inhaler) 1 puff IH BID [facility] [place] Last Admin: 01/07/20 06:54 Dose: 1 puff Documented by: Senna/Docusate Sodium (Senna/Docusate Sodium 1 Tablet) 2 tablet PO BID [facility] [place] Last Admin: 01/07/20 06:50 Dose: 2 tablet Documented by: Sodium Chloride (0.9% Saline Lock 10 Ml Syringe) 10 - 40 ml IV UD PRN PRN Reason: SALINE FLUSH Last Admin: 12/27/19 07:05 Dose: 10 ml Documented by: Sucralfate (Sucralfate 1 Gm Tablet) 1 gm PO 1HR_ACHS [facility] [place] Last Admin: 01/07/20 11:12 Dose: 1 gm Documented by: Tramadol HCl (Tramadol 50 Mg Tablet) 50 mg PO Q6H PRN PRN PRN Reason: Pain Score 1-5 Last Admin: 01/07/20 09:09 Dose: 50 mg Documented by: Trazodone HCl (Trazodone 100 Mg Tablet) 200 mg PO QHS [facility] [place] Last Admin: 01/06/20 19:33 Dose: 200 mg Documented by: Umeclidinium [place] (Umeclidinium [place] Inhaler) 1 puff IH DAILY [facility] [place] Last Admin: 01/07/20 06:54 Dose: 1 puff Documented by: Varenicline (Varenicline 0.5 Mg Tablet) 0.5 mg PO DAILY [facility] [place] Stop: 01/10/20 06:01 Last Admin: 01/07/20 06:54 Dose: 0.5 mg Documented by: Varenicline (Varenicline 1 Mg Tablet) 1 mg PO BID [facility] [place] Medical Necessity - Tobacco Use Smoking Status: Current every day smoker Tobacco Use: Cigarettes Assessment/Plan All Active Problems (Last Reviewed 12/16/19 @ 21:[address] Jese Strauss, DO) Difficulty in walking, not elsewhere classified (Acute) Syncope (Acute) Closed left ankle fracture (Acute) Debility (Acute) Fall (Acute) Diarrhea (Resolved) Hypokalemia (Resolved) s/p left trimalleolar ankle fracture (DOS 12/23/2019, Dr. Mitchell) Compromised lateral incision site with signs of infection Uncontrolled Diabetes Tobacco use Multiple comorbidities Patient seen and examined Her vitals remained stable and she is afebrile. Her white blood cell count was 11.2 on 01/06/2020. Her lateral incision has copious discolored drainage noted and her peeling skin was debrided with a roll picker in a non excisional manner. No purulence was expressed. There is no odor. Culture ordered with gram positive growth so far; results pending. Repeat xrays obtained. ORIF intact without acute injuries. No soft tissue emphysema, osseous or joint destruction, or foreign body seen. Ankle mortise is well aligned. Antibiotic is recommended. Oral clindamycin started. Her drug allergies are noted. Dressing changed. Leg cleansed with dynahex. Lotion applied wally surgical site leg. Betadine along incision, DSD, splint reapplied in a well-padded manner. To keep clean, dry, and intact. No weightbearing left foot/ankle, keep foot elevated as much as possible. She has some external rotation of the limbs I recommend additional offloading by hanging her ankle and foot over stacked pillows to keep pressure off of this site for pain management and maceration reduction. Smoking cessation is imperative for healing. Vitamin D lab is low - recommend continue vitamin D supplementation I recommend continued proper glucose control to help healing of ankle fracture. Reviewed increased risks of nonhealing and potential complications given patient's multiple comorbidities, including but not limited to tobacco use and uncontrolled diabetes. DVT prophylaxis and medical management per primary team is appreciated. Patient relates she is awaiting insurance to get back to her as far as staying in TCU longer which is recommended given her status change. Podiatry will continue to follow close while in house. Please do not hesitate to call if you have any questions. Discussed case updates with Dr. Monae. Veronica Smith DPM, [facility] [phone]
--- NOTE | 2020-01-07 13:50 | CASEMGMT ---
Social Work Notified pt insurance approved more time NRD 01/09. Notified [facility] [place] [facility] for DME of DC date being postponed. Pt still choosing to DC home with issued cut. Soraya Petersen, CHANNEL SALES DIRECTOR SPIN INSTRUCTOR
[2020-01-07 13:55] VITALS: BP 112/58; PULSE 66; RESP 16; TEMP 36.7; O2SAT 96
[2020-01-07] MEDS: Clindamycin HCl 150 MG Capsule 300 MG PO ×2 (14:51→19:57)
[2020-01-07 16:11] LABS: Bedside Glucose 186 mg/dL (70-110)
[2020-01-07] MEDS: Polyethylene Glycol 3350 17 GM PACKET PO (17:11)
[2020-01-07] MEDS: RisperiDONE 2 MG Tablet 4 MG PO (19:56)
[2020-01-07] MEDS: Lisinopril 20 MG Tablet PO (19:56)
[2020-01-07] MEDS: traZODone 100 MG Tablet 200 MG PO (19:56)
[2020-01-07] MEDS: Montelukast 10 MG Tablet PO (19:56)
[2020-01-07] MEDS: Atorvastatin Calcium 80 MG Tablet PO (19:58)
[2020-01-07 21:20] LABS: Bedside Glucose 203 mg/dL (70-110)
[2020-01-07 22:15] VITALS: PULSE 68; RESP 14; RESP 15; O2SAT 98
--- NOTE | 2020-01-07 22:23 | CPS ---
Pt.'s FiO2 decreased to 25%; pt.'s SpO2 = 100%
[2020-01-08] VITALS (7 sets, daily range): BP systolic 116–120; BP diastolic 57–63; PULSE 64–70; RESP 14–18; TEMP 36.4–36.6; O2SAT 93–97
[2020-01-08] MEDS: HYDROmorphone 2 MG TABLET 4 MG PO ×7 (00:21→19:59)
[2020-01-08] MEDS: traMADol 50 MG Tablet PO ×4 (01:32→22:11)
--- NOTE | 2020-01-08 03:51 | NURSING ---
Patient awake all shift. Continues to request PRN pain medication q3h. Patient also requesting coffee all night long and continues to complain she cannot sleep and is urinating a lot. Patient educated on the caffeine in Coffee. Offered patient decaf coffee instead and patient refuses.
[2020-01-08 06:41] LABS: Bedside Glucose 146 mg/dL (70-110)
[2020-01-08] MEDS: Pregabalin 75 MG Capsule PO ×3 (06:45→19:58)
[2020-01-08] MEDS: Hydrocortisone 2.5% Crm 1 APPLIC TOPICAL (06:45)
[2020-01-08] MEDS: Polyethylene Glycol 3350 17 GM PACKET PO ×2 (06:45→17:36)
[2020-01-08] MEDS: Metoprolol(XL)Succ 50 MG Tablet PO (06:46)
[2020-01-08] MEDS: Clopidogrel Bisulfate 75 MG Tablet PO (06:47)
[2020-01-08] MEDS: Furosemide 20 MG Tablet PO (06:47)
[2020-01-08] MEDS: Senna/Docusate Sodium 1 Tablet 2 TABLET PO ×2 (06:47→17:36)
[2020-01-08] MEDS: busPIRone 15 MG TABLET 30 MG PO ×2 (06:47→17:35)
[2020-01-08] MEDS: Mirabegron 25 MG TAB.ER.24H PO (06:47)
[2020-01-08] MEDS: Baclofen 10 MG Tablet PO ×3 (06:47→19:58)
[2020-01-08] MEDS: Varenicline 0.5 MG Tablet PO (06:48)
[2020-01-08] MEDS: Umeclidinium Bromide Inhaler 1 PUFF IH (06:48)
[2020-01-08] MEDS: APIXABAN 5 MG TABLET PO ×2 (06:48→17:36)
[2020-01-08] MEDS: Clindamycin HCl 150 MG Capsule 300 MG PO ×3 (06:48→19:59)
[2020-01-08] MEDS: Menthol/Lanolin/Calamine/Znox 113 GM Tube 1 APPLIC TOPICAL ×2 (06:48→17:41)
[2020-01-08] MEDS: amLODIPine 10 MG Tablet PO (06:48)
[2020-01-08] MEDS: Fluticasone/Salmeterol 232-14 Inhaler 1 PUFF IH ×2 (06:49→17:35)
[2020-01-08] MEDS: Nystatin Powder 15gm Bottle 1 APPLIC TOPICAL ×2 (06:50→20:02)
[2020-01-08] MEDS: Sucralfate 1 GM Tablet PO ×4 (06:50→19:59)
--- NOTE | 2020-01-08 07:21 | PCA ---
Patient called out and said that she might have done something to her ankle. This INDEPENDENT INSURANCE ADJUSTER went back to understand what she was talking about. Patient said that she stood up from her chair to move a pillow and lost her balance and stepped down on her left foot. She said she felt like her heel moved back. Denies pain. PAMELA Maldonado notified
[2020-01-08] MEDS: Insulin Lispro 100 UNIT/ML INSULN.PEN SC ×3 (09:01→17:34)
[2020-01-08 11:31] LABS: Bedside Glucose 177 mg/dL (70-110)
[2020-01-08] MEDS: proMETHazine 25 MG Tablet PO (12:05)
--- NOTE | 2020-01-08 13:48 | NURSING ---
Pt notified of 2 COVID-19 positive staff members. Explained to Pt that all staff will be retested tomorrow 01/09/20. Pt to be tested 01/13/20.
--- NOTE | 2020-01-08 16:11 | NURSING ---
Resident and sister, kailee, notified of staff member testing positive for COVID.
[2020-01-08 16:46] LABS: Bedside Glucose 399 mg/dL (70-110)
[2020-01-08] MEDS: Lisinopril 20 MG Tablet PO (19:58)
[2020-01-08] MEDS: Atorvastatin Calcium 80 MG Tablet PO (19:58)
[2020-01-08] MEDS: Montelukast 10 MG Tablet PO (19:58)
[2020-01-08] MEDS: traZODone 100 MG Tablet 200 MG PO (19:59)
[2020-01-08] MEDS: RisperiDONE 2 MG Tablet 4 MG PO (19:59)
--- NOTE | 2020-01-08 20:14 | NURSING ---
Pt anxious and expressed concerns about COVID and stated, I am worried about getting it from an Employee. Explained to patient we are taking every precaution we can. This Nurse did give patient a mask and educated her that if she wanted to wear it while staff is in room she could. Patient satisfied and on phone now at this time.
[2020-01-08 21:20] LABS: Bedside Glucose 192 mg/dL (70-110)
[2020-01-09] VITALS (8 sets, daily range): BP systolic 108–131; BP diastolic 64–71; PULSE 64–76; RESP 14–20; TEMP 36.1–37.1; O2SAT 93–98
[2020-01-09] MEDS: HYDROmorphone 2 MG TABLET 4 MG PO ×6 (00:35→23:22)
[2020-01-09 05:34] LABS: Absolute Lymphocyte Count 1.34 X10^3/uL (0.83-4.51); Absolute Neutrophil Count 8.6 X10^3/uL (2.0-7.7); Basophil# 0.09 X10^3/uL; Basophil% 0.8 % (0-1); Eosinophil# 0.25 X10^3/uL; Eosinophils% 2.2 % (0-5); Hematocrit 33.9 % (37-47); Hemoglobin 10.3 g/dL (12.0-15.0); Lymphocyte # 1.34 X10^3/ul (4.0); Lymphocyte % 11.6 % (19-41); Mean Corp Hgb Conc 30.4 g/dL (32-36); Mean Corpuscular Hgb 28.9 pg (27.0-32.0); Mean Platelet Vol. 8.9 fl (6.2-12.0); Monocyte# 1.23 X10^3/uL; Monocyte% 10.6 % (0-10); NRBC Flagged by Analyzer 0 % (0-5); Neutrophil % 74.3 % (47-70); Platelet Count 412 K/mm3 (150-450); RBC Distribution Width CV 14.9 % (11.6-14.6); RBC Distribution Width SD 51.8 fl (35.1-43.9); Red Blood Count 3.57 M/mm3 (4.2-5.4); White Blood Count 11.6 K/mm3 (4.4-11.0)
[2020-01-09] MEDS: Polyethylene Glycol 3350 17 GM PACKET PO ×2 (05:36→17:14)
[2020-01-09] MEDS: Menthol/Lanolin/Calamine/Znox 113 GM Tube 1 APPLIC TOPICAL ×2 (05:36→17:14)
[2020-01-09] MEDS: Pregabalin 75 MG Capsule PO ×3 (05:36→20:20)
[2020-01-09] MEDS: Senna/Docusate Sodium 1 Tablet 2 TABLET PO ×2 (05:37→17:10)
[2020-01-09] MEDS: busPIRone 15 MG TABLET 30 MG PO ×2 (05:37→17:10)
[2020-01-09] MEDS: Varenicline 0.5 MG Tablet PO (05:38)
[2020-01-09] MEDS: Metoprolol(XL)Succ 50 MG Tablet PO (05:38)
[2020-01-09] MEDS: Clindamycin HCl 150 MG Capsule 300 MG PO ×2 (05:38→13:36)
[2020-01-09] MEDS: Sucralfate 1 GM Tablet PO ×4 (05:38→20:20)
[2020-01-09] MEDS: Clopidogrel Bisulfate 75 MG Tablet PO (05:39)
[2020-01-09] MEDS: Baclofen 10 MG Tablet PO ×3 (05:39→20:20)
[2020-01-09] MEDS: Furosemide 20 MG Tablet PO (05:39)
[2020-01-09] MEDS: Mirabegron 25 MG TAB.ER.24H PO (05:39)
[2020-01-09] MEDS: amLODIPine 10 MG Tablet PO (05:39)
[2020-01-09] MEDS: APIXABAN 5 MG TABLET PO ×2 (05:39→17:10)
[2020-01-09] MEDS: Fluticasone/Salmeterol 232-14 Inhaler 1 PUFF IH ×2 (05:42→17:11)
[2020-01-09] MEDS: Umeclidinium Bromide Inhaler 1 PUFF IH (05:43)
[2020-01-09] MEDS: Nystatin Powder 15gm Bottle 1 APPLIC TOPICAL ×2 (05:44→20:21)
[2020-01-09 06:26] LABS: Bedside Glucose 130 mg/dL (70-110)
[2020-01-09] MEDS: proMETHazine 25 MG Tablet PO (06:57)
[2020-01-09] MEDS: Insulin Lispro 100 UNIT/ML INSULN.PEN SC ×3 (08:09→17:11)
[2020-01-09 11:00] LABS: Bedside Glucose 132 mg/dL (70-110)
[2020-01-09] MEDS: traMADol 50 MG Tablet PO (15:46)
--- NOTE | 2020-01-09 16:14 | NURSING ---
DR SANTILLAN'S OFFICE WAS CALLED TO VERIFY IF R' CAN SHOWER. OFFICE CALLED BACK AND STATED R' MAY NOT SHOWER. DR. DIEGO IS GOING TO BE IN THIS EVENING TO SEE R'.
[2020-01-09 16:16] LABS: Bedside Glucose 122 mg/dL (70-110)
--- NOTE | 2020-01-09 19:15 | PN_ITS ---
Patient Problems: Active and Suspected Problems (Last Reviewed 12/16/19 @ 21:[address] Jese Strauss, DO) Syncope (Acute) Closed left ankle fracture (Acute) Debility (Acute) Fall (Acute) Subjective: Patient was seen this evening for follow up on left ankle ORIF. She has developed lateral ankle wound, has been cultured. Patient relates there is some pain in the ankle. Patient relates she she refuses to go to another nursing facility because she is afraid she will get COVID. No complaints of fever, chills, nausea or vomiting, no calf pain. - Physical Exam Vitals/I&O's: Vital Signs Temp Pulse Resp BP Pulse Ox 96.9 F L 64 17 131/71 H 98 01/09/20 14:05 01/09/20 14:05 01/09/20 14:05 01/09/20 14:05 01/09/20 14:05 Oxygen Flow Rate (L/min) 3 Oxygen Delivery Method Room Air Weight: 115.269 kg Body Mass Index (BMI) 44.2 Finger Stick Blood Glucose 422 Intake and Output for Last 24 Hours 01/07/20 01/08/20 01/09/20 23:59 23:59 23:59 Intake Total 1979 / 1979 1520 / 1520 2120 / 2120 Output Total 600 / 600 550 / 550 Balance 1380 / 1380 1520 / 1520 1570 / 1570 General: Alert, Oriented x3, Cooperative, No apparent distress Extremities: No cyanosis, Capillary Refill Less than 3 Seconds, No Calf Tenderness, Edema - Edema to the foot/ankle c/w post op course, left., - - Lateral ankle with wound to site down to subcutaneous tissue layer, there is s ome fibrotic tissue, there is some erythema to the proximal aspect c/w cellulitis, no streaking, no visible abscess, no maloder, no fluctuance, no crepitus present. Medial incision site healing well. Musculoskeletal: - - There is some POP to the lateral ankle, left. No purulence, no evidence of any other areas of infection or tissue break down to the foot or ankle left foot. Psych/Mental Status: Appropriate, Alert and oriented to time, place, person, mood and affect Microbiology Past 72 Hours 01/06/20 19:05 Wound Abcess - No Site/Description Given Gram Stain - Final 01/06/20 19:05 Wound Abcess - No Site/Description Given Wound Culture - Preliminary Staphylococcus epidermidis Coag Negative Staph#2 01/06/20 19:05 Wound Abcess - No Site/Description Given Anaerobic Culture - Preliminary Checking for anaerobes, further studies to follow. Laboratory Results 01/08/20 21:12: POC Glucose 192 H 01/09/20 05:10: WBC 11.6 H, RBC 3.57 L, Hgb 10.3 L, Hct 33.9 L, MCV 95.0 D, MCH 28.9, MCHC 30.4 L D, RDW Std Deviation 51.8 H, RDW Coeff of Kaycee 14.9 H, Plt Count 412, MPV 8.9, Immature Gran % (Auto) 0.500, Neut % (Auto) 74.3 H, Lymph % (Auto) 11.6 L, [place] % (Auto) 10.6 H, Eos % (Auto) 2.2, Baso % (Auto) 0.8, Absolute Neuts (auto) 8.6 H, Absolute Lymphs (auto) 1.34, Nucleated RBC % 0 01/09/20 06:18: POC Glucose 130 H 01/09/20 10:55: POC Glucose 132 H 01/09/20 16:03: POC Glucose 122 H Current Medications Albuterol Sulfate (Albuterol 2.5 Mg/3 Ml Vial.Neb.) 2.5 mg INHALATION Q4H PRN PRN PRN Reason: Sob &/Or Wheezing Last Admin: 12/23/19 21:30 Dose: 2.5 mg Documented by: Amlodipine Besylate (Amlodipine 10 Mg Tablet) 10 mg PO DAILY [facility] Last Admin: 01/09/20 05:39 Dose: 10 mg Documented by: Apixaban (Apixaban 5 Mg Tablet) 5 mg PO BID [facility] Last Admin: 01/09/20 17:10 Dose: 5 mg Documented by: Atorvastatin Calcium (Atorvastatin Calcium 80 Mg Tablet) 80 mg PO QHS [facility] Last Admin: 01/08/20 19:58 Dose: 80 mg Documented by: Baclofen (Baclofen 10 Mg Tablet) 10 mg PO TID [facility] Last Admin: 01/09/20 13:36 Dose: 10 mg Documented by: Bisacodyl (Bisacodyl 10 Mg Suppository) 10 mg RECTAL DAILY PRN PRN Reason: Constipation Buspirone HCl (Buspirone 15 Mg Tablet) 30 mg PO BID [facility] Last Admin: 01/09/20 17:10 Dose: 30 mg Documented by: Calamine/Phenol (Menthol/Lanolin/Calamine/Znox 113 Gm Tube) 1 applic TOPICAL BID [facility]; Protocol Last Admin: 01/09/20 17:14 Dose: 1 applicatio Documented by: Cholecalciferol (Cholecalciferol (Vit D3) 1,000 Unit (25mcg)) 2,000 unit PO DAILYCM [facility] Last Admin: 01/09/20 08:11 Dose: 2,000 unit Documented by: Clopidogrel Bisulfate (Clopidogrel Bisulfate 75 Mg Tablet) 75 mg PO DAILY [facility] Last Admin: 01/09/20 05:39 Dose: 75 mg Documented by: Furosemide (Furosemide 20 Mg Tablet) 20 mg PO DAILY [facility] Last Admin: 01/09/20 05:39 Dose: 20 mg Documented by: Hydrocortisone (Hydrocortisone 2.5% Crm) 1 applic TOPICAL TID PRN PRN; Protocol PRN Reason: ITCHING Last Admin: 01/08/20 06:45 Dose: 1 applicatio Documented by: Hydromorphone HCl (Hydromorphone 2 Mg Tablet) 4 mg PO Q3H PRN PRN PRN Reason: Pain Score 6-10 Last Admin: 01/09/20 18:58 Dose: 4 mg Documented by: Vancomycin IV Pharmacy to Dose (1 ea/ Sodium Chloride) 500 mls @ 250 mls/hr IV X1 [facility]; Protocol Vancomycin HCl 1,750 mg/ (Sodium Chloride) 535 mls @ 250 mls/hr IV X1 ONE Stop: 01/09/20 22:08 Insulin Glargine (Insulin Glargine 100 Units/Ml Pen) 40 units SC BID [facility] Last Admin: 01/09/20 17:12 Dose: 40 u Documented by: Insulin Human Lispro (Insulin Lispro 100 Unit/Ml Insuln.Pen) 5 unit SC TIDAC [facility] Last Admin: 01/09/20 17:11 Dose: 5 units Documented by: Lactobacillus Acidophilus (Lactobacillus Acidophilus) 2 tablet PO BID [facility] Last Admin: 01/09/20 17:10 Dose: 2 tablet Documented by: Lisinopril (Lisinopril 20 Mg Tablet) 20 mg PO QHS [facility] Last Admin: 01/08/20 19:58 Dose: 20 mg Documented by: Metoprolol Succinate (Metoprolol(Xl)Succ 50 Mg Tablet) 50 mg PO DAILY [facility] Last Admin: 01/09/20 05:38 Dose: 50 mg Documented by: Mirabegron (Mirabegron 25 Mg Tab.Er.24h) 25 mg PO DAILY [facility] Last Admin: 01/09/20 05:39 Dose: 25 mg Documented by: Montelukast Sodium (Montelukast 10 Mg Tablet) 10 mg PO QHS [facility] Last Admin: 01/08/20 19:58 Dose: 10 mg Documented by: Nicotine (Nicotine 21 Mg Patch) 21 mg TRANSDERM. DAILY [facility] Last Admin: 01/09/20 05:39 Dose: 21 mg Documented by: Nitroglycerin (Nitroglycerin (Inpatient Use) 0.4 Mg Tab.Subl) 0.4 mg SUBLINGUAL Q5M PRN PRN Reason: CARDIAC/CHEST PAIN Nystatin (Nystatin Powder 15gm Bottle) 1 applic TOPICAL 0600,2200 [facility]; Protocol Last Admin: 01/09/20 05:44 Dose: 1 applicatio Documented by: Polyethylene Glycol (Polyethylene Glycol 3350 17 Gm Packet) 17 gm PO BID [facility] Last Admin: 01/09/20 17:14 Dose: 17 gm Documented by: Potassium Chloride (Potassium Chloride 10 Meq Tablet) 10 meq PO DAILYCM [facility] Last Admin: 01/09/20 08:10 Dose: 10 meq Documented by: Pregabalin (Pregabalin 75 Mg Capsule) 75 mg PO TID [facility] Last Admin: 01/09/20 13:35 Dose: 75 mg Documented by: Promethazine HCl (Promethazine 25 Mg Tablet) 12.5 - 25 mg PO BID PRN PRN PRN Reason: NAUSEA Last Admin: 01/09/20 06:57 Dose: 25 mg Documented by: Risperidone (Risperidone 2 Mg Tablet) 4 mg PO QHS [facility] Last Admin: 01/08/20 19:59 Dose: 4 mg Documented by: Fluticasone/Salmeterol (Fluticasone/Salmeterol 232-14 Inhaler) 1 puff IH BID [facility] Last Admin: 01/09/20 17:11 Dose: 1 puff Documented by: Senna/Docusate Sodium (Senna/Docusate Sodium 1 Tablet) 2 tablet PO BID [facility] Last Admin: 01/09/20 17:10 Dose: 2 tablet Documented by: Sodium Chloride (0.9% Saline Lock 10 Ml Syringe) 10 - 40 ml IV UD PRN PRN Reason: SALINE FLUSH Last Admin: 12/27/19 07:05 Dose: 10 ml Documented by: Sucralfate (Sucralfate 1 Gm Tablet) 1 gm PO 1HR_ACHS [facility] Last Admin: 01/09/20 15:47 Dose: 1 gm Documented by: Tramadol HCl (Tramadol 50 Mg Tablet) 50 mg PO Q6H PRN PRN PRN Reason: Pain Score 1-5 Last Admin: 01/09/20 15:46 Dose: 50 mg Documented by: Trazodone HCl (Trazodone 100 Mg Tablet) 200 mg PO QHS [facility] Last Admin: 01/08/20 19:59 Dose: 200 mg Documented by: Umeclidinium [place] (Umeclidinium [place] Inhaler) 1 puff IH DAILY [facility] Last Admin: 01/09/20 05:43 Dose: 1 puff Documented by: Varenicline (Varenicline 0.5 Mg Tablet) 0.5 mg PO DAILY [facility] Stop: 01/10/20 06:01 Last Admin: 01/09/20 05:38 Dose: 0.5 mg Documented by: Varenicline (Varenicline 1 Mg Tablet) 1 mg PO BID [facility] Medical Necessity - Tobacco Use Smoking Status: Current every day smoker Tobacco Use: Cigarettes Assessment/Plan All Active Problems (Last Reviewed 12/16/19 @ 21:[address] Jese Strauss, DO) Cellulitis of left lower extremity (Acute) Difficulty in walking, not elsewhere classified (Acute) Syncope (Acute) Closed left ankle fracture (Acute) Debility (Acute) Fall (Acute) Diarrhea (Resolved) Hypokalemia (Resolved) Left trimalleolar ankle fracture/Charcot neuroarthropathy s/p ORIF on 12/23/2019 Lateral ankle ulceration down to subcutaneous tissue with cellulitis Uncontrolled Diabetes Tobacco use Multiple comorbidities Reviewed culture results, growing staph epi multiple resistances + second CoNeg staph organism, d/c clindamycin, switched to vancomycin, ID consulted as well. Cleansed wound site with normal saline solution and mechanically debrided, painted betadine soln to site, applied gauze, kerlix and lukas and well padded below knee splint - change daily - consult placed to wound nurse. Strict nonweightbearing left foot/ankle, keep foot elevated. Keep left heel offloaded with pillow. Keep lateral ankle offloaded at all times - discussed with patient on the importance of this. Continue with pain management for post op pain control. Vitamin D lab is low - recommend vitamin D supplementation, 2000 units daily. Continue with tobacco cessation, and proper glucose control to help healing of ankle fracture. Reviewed increased risks of nonhealing and potential complications given patient's multiple comorbidities, including but not limited to tobacco use and uncontrolled diabetes. From ankle standpoint recommend patient stay in nursing facility as long as possible due to concerns of worsening once patient goes home. Patient relates she will have a lot of help while she is at home. Also relates she will have a home nurse. She will need frequent dressing changes by home nursing (every 1-2 days) if she goes home. She would be able to come to our office ([facility]) as well for dressing changes as long as she has transportation. Podiatry will continue to follow.
[2020-01-09 19:29] LABS: Absolute Lymphocyte Count 1.35 X10^3/uL (0.83-4.51); Absolute Neutrophil Count 8.3 X10^3/uL (2.0-7.7); Basophil# 0.08 X10^3/uL; Basophil% 0.7 % (0-1); Eosinophil# 0.27 X10^3/uL; Eosinophils% 2.4 % (0-5); Hematocrit 30.2 % (37-47); Lymphocyte # 1.35 X10^3/ul (4.0); Lymphocyte % 11.9 % (19-41); Mean Corp Hgb Conc 33.1 g/dL (32-36); Mean Corpuscular Hgb 29.1 pg (27.0-32.0); Mean Corpuscular Volume 87.8 fL (81-99); Monocyte# 1.25 X10^3/uL; NRBC Flagged by Analyzer 0 % (0-5); Neutrophil # 8.33 X10^3/uL (2.7-7.7); Neutrophil % 73.2 % (47-70); Platelet Count 421 K/mm3 (150-450); RBC Distribution Width CV 14.7 % (11.6-14.6); RBC Distribution Width SD 47.8 fl (35.1-43.9); Red Blood Count 3.44 M/mm3 (4.2-5.4); White Blood Count 11.4 K/mm3 (4.4-11.0)
[2020-01-09 19:31] LABS: POSITIVE COUNT NO; POSITIVE DIFFERENTIAL NO; POSITIVE MORPHOLOGY NO
[2020-01-09 19:42] LABS: Anion Gap 5 (5-15); BUN 7 mg/dL (7-18); BUN/Creat Ratio 9.3 RATIO (10-20); Calcium,Total 9.7 mg/dL (8.5-10.1); Chloride 90 mmol/L (98-107); Creatinine, Serum 0.76 mg/dL (0.55-1.02); EST Glomerular Filtration Rate 85 mL/min (>60); Est Glom Filt Rate - Afr Amer 103 mL/min (>60); Glucose 141 mg/dL (74-106); Potassium 4.4 mmol/L (3.5-5.1); Sodium Level 122 mmol/L (136-145)
[2020-01-09] MEDS: Montelukast 10 MG Tablet PO (20:19)
[2020-01-09] MEDS: traZODone 100 MG Tablet 200 MG PO (20:20)
[2020-01-09] MEDS: RisperiDONE 2 MG Tablet 4 MG PO (20:20)
[2020-01-09] MEDS: Lisinopril 20 MG Tablet PO (20:20)
[2020-01-09] MEDS: Atorvastatin Calcium 80 MG Tablet PO (20:20)
[2020-01-09 21:25] LABS: Bedside Glucose 163 mg/dL (70-110)
[2020-01-10] VITALS (7 sets, daily range): BP systolic 108–112; BP diastolic 56–70; PULSE 63–80; RESP 14–20; TEMP 36.5–37.3; O2SAT 96–99
[2020-01-10] MEDS: traMADol 50 MG Tablet PO ×3 (00:44→17:35)
--- NOTE | 2020-01-10 00:48 | NURSING ---
Called for pain med twice in 3-4 minutes, pt crying in room states i've never had pain like this before , it hurts right there by my ankle when i put my foot down, shauna had it down now for about 1 hour, educate about pain med and need to try to keep elevated, pt state will keep downat thist arthur,pt sitting inchair witheyes closed by end of visit
--- NOTE | 2020-01-10 01:23 | PCM.RX.CS ---
Consult Pharmacy has been consulted to manage selected antiobiotic: Vancomycin Type of Consult: New start Labs: Sodium 122 mmol/L (136-145) L 01/09/20 19:22 Potassium 4.4 mmol/L (3.5-5.1) 01/09/20 19:22 Chloride 90 mmol/L (98-107) L 01/09/20 19:22 Carbon Dioxide 27.0 mmol/L (21.0-32.0) 01/09/20 19:22 Anion Gap 5 (5-15) 01/09/20 19:22 BUN 7 mg/dL (7-18) 01/09/20 19:22 Creatinine 0.76 mg/dL (0.55-1.02) 01/09/20 19:22 Est GFR (MDRD) Af Amer 103 mL/min (>60) 01/09/20 19:22 Est GFR (MDRD) Non-Af 85 mL/min (>60) 01/09/20 19:22 BUN/Creatinine Ratio 9.3 RATIO (10-20) L 01/09/20 19:22 Glucose 141 mg/dL (74-106) H 01/09/20 19:22 Microbiology: Microbiology 01/06/20 19:05 Wound Abcess - No Site/Description Given Gram Stain - Final 01/06/20 19:05 Wound Abcess - No Site/Description Given Wound Culture - Preliminary Staphylococcus epidermidis Coag Negative Staph#2 01/06/20 19:05 Wound Abcess - No Site/Description Given Anaerobic Culture - Preliminary Checking for anaerobes, further studies to follow. 12/30/19 10:45 Mucosa - Nose - Final 12/23/19 22:47 Blood Culture (Wb) - Left Hand Blood Culture - Final No growth in 5 days. 12/23/19 23:00 Blood Culture (Wb) - No Site/Description Given Blood Culture - Final No growth in 5 days. Goal Trough: 10-15 mcg/mL Pharmacy Plan for Drug Dosing: Pharmacy Service will continue to monitor and adjust dosing as required. Medications Vancomycin HCl 1,750 mg/ (Sodium Chloride) 535 mls @ 250 mls/hr IV Q12H FORREST Discontinued Medications Vancomycin HCl 1,750 mg/ (Sodium Chloride) 535 mls @ 250 mls/hr IV X1 ONE Stop: 01/09/20 22:08 Last Admin: 01/09/20 22:52 Dose: Infused Documented by: Follow-Up Labs: Trough Vancomycin Labs to be done on [date and time ordered]: 01/10 @ 3896
--- NOTE | 2020-01-10 01:44 | NURSING ---
Dressing to left lower leg changed as ordered, pt states pain has improved,
--- NOTE | 2020-01-10 02:00 | NURSING ---
Dressing to left lower ext changed, pt luis well, sm amt purulent drainage from outer ankle incision line, cont to refuse to have feet elevated
[2020-01-10] MEDS: HYDROmorphone 2 MG TABLET 4 MG PO ×5 (03:53→20:11)
[2020-01-10] MEDS: APIXABAN 5 MG TABLET PO ×2 (05:09→17:39)
[2020-01-10] MEDS: Pregabalin 75 MG Capsule PO ×3 (05:09→20:11)
[2020-01-10] MEDS: Sucralfate 1 GM Tablet PO ×4 (05:10→20:11)
[2020-01-10] MEDS: amLODIPine 10 MG Tablet PO (05:10)
[2020-01-10] MEDS: busPIRone 15 MG TABLET 30 MG PO ×2 (05:10→17:38)
[2020-01-10] MEDS: Mirabegron 25 MG TAB.ER.24H PO (05:10)
[2020-01-10] MEDS: Baclofen 10 MG Tablet PO ×3 (05:10→20:11)
[2020-01-10] MEDS: Senna/Docusate Sodium 1 Tablet 2 TABLET PO ×2 (05:11→17:39)
[2020-01-10] MEDS: Clopidogrel Bisulfate 75 MG Tablet PO (05:11)
[2020-01-10] MEDS: Varenicline 0.5 MG Tablet PO (05:11)
[2020-01-10] MEDS: Furosemide 20 MG Tablet PO (05:11)
[2020-01-10] MEDS: DAKIN'S SOL HALF STRENGTH (=0.25%) 1 APPLIC TOPICAL (05:17)
[2020-01-10] MEDS: Umeclidinium Bromide Inhaler 1 PUFF IH (05:18)
[2020-01-10] MEDS: Fluticasone/Salmeterol 232-14 Inhaler 1 PUFF IH ×2 (05:18→17:39)
[2020-01-10] MEDS: Polyethylene Glycol 3350 17 GM PACKET PO (05:18)
[2020-01-10] MEDS: Menthol/Lanolin/Calamine/Znox 113 GM Tube 1 APPLIC TOPICAL ×2 (05:19→17:43)
[2020-01-10] MEDS: Nystatin Powder 15gm Bottle 1 APPLIC TOPICAL ×2 (05:19→20:12)
[2020-01-10] MEDS: Metoprolol(XL)Succ 50 MG Tablet PO (05:30)
[2020-01-10] MEDS: proMETHazine 25 MG Tablet PO (05:32)
[2020-01-10 06:26] LABS: Bedside Glucose 172 mg/dL (70-110)
[2020-01-10] MEDS: 0.9% Saline Lock 10 ML Syringe IV ×2 (08:12→20:12)
[2020-01-10] MEDS: Insulin Lispro 100 UNIT/ML INSULN.PEN SC ×3 (08:46→17:37)
--- NOTE | 2020-01-10 09:43 | NURSING ---
PT COMPLAINING OF FEELING COLD. TEMP 99.1 TA. PT GIVEN WARM BLANKET AND TURN HEAT UP IN ROOM. WILL CONTINUE TO MONITOR. RN AWARE.
[2020-01-10 09:57] LABS: Urine Sodium 25 mmol/L (Not Establ.)
[2020-01-10 10:03] LABS: Osmolality, Serum 266 mOsm/KG (275-295)
[2020-01-10 10:03] LABS: Osmolality, Urine 94 mOsm/KG
[2020-01-10 11:01] LABS: Bedside Glucose 184 mg/dL (70-110)
--- NOTE | 2020-01-10 13:03 | NURSING ---
pt stated she talks to family every day.
--- NOTE | 2020-01-10 13:25 | OT ---
Family friend/neighbor called to ask what walking device he should possibly look into buying/renting for patient upon D/C. Reported that most recently patient had been using a knee scooter during therapy sessions. Also reviewed use of FWW with knee sling vs. knee scooter. Friend asked if rollator would work with knee sling which this OT informed him it would not. Gave friend [facility] social work number for further questions regarding home needs and questions regarding D/C.
--- NOTE | 2020-01-10 13:47 | NURSING ---
NEW ORDER 1500 FLUID RESTRICTION. EXPLAINED TO PT THE FLUID RESTRICTION AND WHY. DIETARY ALSO CAME INTO ROOM TO TALK TO PT. ASKED DIETARY TO EXPLAINED TO PT ABOUT HER DIET AND WHEN ORDERING. PT STATED SHE UNDER STOOD. RN AWARE
--- NOTE | 2020-01-10 16:23 | PCM.HP.ID ---
Problem List (1) Cellulitis of left lower extremity Status: Acute Reason for Consult: cellulitis post-op Consulted by: Dr. Mitchell History of Present Illness: The patient is a 54 year old F with h/o cdiff, presented originally with spontaneous L ankle fracture. Taken to OR 12/23/19 for ORIF. Was on cipro 12/23-12/30. Developed L ankle pain/redness/swelling. Started on clinda, then changed to iv vanc. Wound cx with MRSE x2. Feeling about the same. C/o severe diarrhea but feels different than prior cdiff. No fever, no abd pain. Full ROS performed and neg except as noted above. - Medical History Past Medical History (Chronic Problems): Chronic Problems (Last Reviewed 12/16/19 @ 21:[address] Jese Strauss, DO) Stage 2 moderate COPD by GOLD classification (Chronic) Acute and chronic respiratory failure with hypoxia (Chronic) Cataract (Chronic) Iron deficiency (Chronic) Iron deficiency anemia following bariatric surgery (Chronic) History of gastric bypass (Chronic) Myocardial infarction (Chronic) H/O heart artery stent (Chronic) Pulmonary emboli (Chronic) Diabetic polyneuropathy (Chronic) Muscle spasm (Chronic) Insomnia (Chronic) Overactive bladder (Chronic) Anxiety (Chronic) Coronary artery disease (Chronic) COPD (chronic obstructive pulmonary disease) (Chronic) Diabetes mellitus (Chronic) HTN (hypertension) (Chronic) Peptic ulcer (Chronic) Chronic neutrophilia (Chronic) Osteoarthritis (Chronic) Morbid obesity (Chronic) Neutrophilic leukocytosis (Chronic) Type 2 diabetes mellitus (Chronic) Schizophrenia (Chronic) Hip osteoarthritis (Chronic) with chronic pain-right hip Iron deficiency anemia due to dietary causes (Chronic) exact cause of iron def anemia unknown-felt likely secondary to past history gastric bypass- although chronic blood loss etiology a possibility (has never had colonoscopy)-further workup including hemoccult stool is recommended Morbid obesity with BMI of 45.0-49.9, adult (Chronic) Pulmonary hypertension (Chronic) Chronic narcotic use (Chronic) Depression (Chronic) Gastroesophageal reflux disease (Chronic) Parathyroid abnormality (Chronic) History of PTCA (Chronic) Vitamin D deficiency (Chronic) Hyperlipidemia (Chronic) Thyroid nodule (Chronic) deemed to be benign. Benign essential hypertension (Chronic) CAD (coronary artery disease) (Chronic) RACHEL (obstructive sleep apnea) (Chronic) 17/13 cm of water Spinal stenosis of lumbar region at multiple levels (Chronic) Tobacco abuse (Chronic) Allergies/Adverse Reactions: Allergies amoxicillin Allergy (Verified 12/23/19 12:34) Itching erythromycin base Allergy (Verified 12/23/19 12:34) Unknown methadone Allergy (Verified 12/23/19 12:34) Itching metolazone Allergy (Verified 12/23/19 12:34) Unknown Penicillins Allergy (Verified 12/23/19 12:34) Hives Sulfa (Sulfonamide Antibiotics) Allergy (Verified 12/23/19 12:34) Hives acetaminophen [From Percocet] Adverse Reaction (Verified 12/23/19 12:34) Itching clarithromycin [From Biaxin] Adverse Reaction (Verified 12/23/19 12:34) Nausea ibuprofen Adverse Reaction (Verified 12/23/19 12:34) 3 BLEEDING ULCERS 3 BLEEDING ULCERS morphine Adverse Reaction (Verified 12/23/19 12:34) HEADACHE HEADACHE oxycodone [From Percocet] Adverse Reaction (Verified 12/23/19 12:34) Itching Home Medications: Ambulatory Orders Medication Instructions Recorded Atorvastatin Calcium [Lipitor] 80 mg PO QHS 08/22/15 Metoprolol(XL)Succ [Toprol Xl 50 mg PO DAILY 08/22/15 (Beta Trino)] Nitroglycerin 0.4 mg SL PRN PRN 11/08/16 amlodipine 10 mg tablet 10 mg PO DAILY tab 05/02/17 potassium chloride 10 mEq 10 meq PO DAILY #60 tab 06/16/17 tablet,extended release(part/cryst) Pregabalin [Lyrica] 75 mg PO TID 03/08/18 Risperidone 4 mg PO QHS 03/08/18 Tizanidine HCl 6 mg PO TID PRN PRN 03/08/18 traZODone [Desyrel] 200 mg PO QHS 03/08/18 Furosemide [Lasix] 20 mg PO DAILY 11/20/18 Lisinopril 20 mg PO QHS 11/20/18 Mirabegron [Myrbetriq] 25 mg PO DAILY 11/20/18 Apixaban [Eliquis] 5 mg PO BID 05/02/19 Fluticasone/Salmeterol [Advair Hfa 2 puff INHALATION DAILY 05/02/19 230-21 Mcg Inhaler] albuterol sulfate 90 mcg/actuation 2 puff INHALATION Q6H PRN 06/27/19 aerosol inhaler buspirone 30 mg tablet 30 mg PO BID tab 06/27/19 sucralfate 1 gram tablet 1 g PO QACHS 06/27/19 Nystatin [Nystop] 1 applic TP 4X/DAY 08/22/19 proMETHazine tablet [Phenergan 12.5 - 25 mg PO BID PRN PRN 08/22/19 tablet] tiotropium bromide 2.5 2 puff INHALATION DAILY #4 g 09/30/19 mcg/actuation mist for inhalation montelukast 10 mg tablet 10 mg PO QHS #30 tab 10/30/19 albuterol sulfate 2.5 mg INHALATION Q4H PRN #180 ml 12/11/19 Lactobacillus Acidophilus 2 tab PO BID 12/16/19 [Acidophilus] Insulin Glargine [Lantus SoloStar 40 units SC BID 12/18/19 Pen] Nicotine [Nicoderm Cq] 21 mg TRANSDERM. DAILY 12/18/19 Apixaban [Eliquis] 5 mg PO BID tab 01/02/20 HYDROmorphone tablet [Dilaudid] 2 mg PO Q3H PRN PRN 3 Days #18 tab 01/02/20 Hydrocortisone 2.5% Crm [Hytone] 1 applic TOPICAL TID PRN PRN #1 01/02/20 tube Menthol/Lanolin/Calamine/Znox 1 applic TOPICAL BID tube 01/02/20 [Calmoseptine Ointment] traMADol [Ultram] 50 mg PO Q6H PRN PRN 3 Days #12 tab 01/02/20 - Social History Tobacco Use: cigarettes Vital Signs Temp Pulse Resp BP Pulse Ox 97.8 F 80 20 H 112/70 96 01/10/20 15:20 01/10/20 15:20 01/10/20 15:20 01/10/20 15:20 01/10/20 15:20 Oxygen Flow Rate (L/min) 3 Oxygen Delivery Method Nasal Cannula Weight: 115.269 kg Body Mass Index (BMI) 44.2 Finger Stick Blood Glucose 422 Microbiology Past 72 Hours 01/06/20 19:05 Gram Stain - Final Wound Abcess - No Site/Description Given Wound Culture - Final Staphylococcus epidermidis Staphylococcus epidermidis#2 Anaerobic Culture - Final No anaerobic bacteria isolated. Laboratory Tests Past 24 Hrs 11/05/20 11/05/20 11/06/20 19:22 19:22 08:35 WBC 11.4 H RBC 3.44 L Hgb 10.0 L Hct 30.2 L MCV 87.8 D MCH 29.1 MCHC 33.1 D RDW Std Deviation 47.8 H RDW Coeff of Kaycee 14.7 H Plt Count 421 MPV 9.0 Immature Gran % (Auto) 0.800 Neut % (Auto) 73.2 H Lymph % (Auto) 11.9 L [place] % (Auto) 11.0 H Eos % (Auto) 2.4 Baso % (Auto) 0.7 Absolute Neuts (auto) 8.3 H Absolute Lymphs (auto) 1.35 Nucleated RBC % 0 Sodium 122 L Potassium 4.4 Chloride 90 L Carbon Dioxide 27.0 Anion Gap 5 BUN 7 Creatinine 0.76 Estim Creat Clear Calc 70.00 Est GFR (MDRD) Af Amer 103 Est GFR (MDRD) Non-Af 85 BUN/Creatinine Ratio 9.3 L Glucose 141 H Serum Osmolality 266 L Calcium 9.7 Urine Osmolality Ur Random Sodium 01/10/20 09:30 WBC RBC Hgb Hct MCV MCH MCHC RDW Std Deviation RDW Coeff of Kaycee Plt Count MPV Immature Gran % (Auto) Neut % (Auto) Lymph % (Auto) [place] % (Auto) Eos % (Auto) Baso % (Auto) Absolute Neuts (auto) Absolute Lymphs (auto) Nucleated RBC % Sodium Potassium Chloride Carbon Dioxide Anion Gap BUN Creatinine Estim Creat Clear Calc Est GFR (MDRD) Af Amer Est GFR (MDRD) Non-Af BUN/Creatinine Ratio Glucose Serum Osmolality Calcium Urine Osmolality 94 Ur Random Sodium 25 - Other Studies Radiology: [] reviewed Other Studies: [] Route of nutrition/ use of supplements: [] Nutritional Intake: [] IV Site: [] Snider Catheter: [] - Physical Exam General: Alert, Oriented x3, Cooperative, No apparent distress HEENT: Atraumatic, PERRLA, EOMI Neck: Supple, No Nodes Lungs: Clear to auscultation, Normal air movement Cardiovascular: Regular rate, Regular Rhythm, No murmurs Abdomen: Soft, Non Tender, Non-Distended Extremities: Edema Skin: Ulcer/ Wound - L lower leg wrapped IV Site: Peripheral, without redness Musculoskeletal: No Tenderness to Palpation of Joints or Extremities Neurological: Cranial nerves II-XII grossly intact - Assessment/Plan Antibiotics: [] Assessment/Plan: [] Active and Suspected Problems (Last Reviewed 12/16/19 @ 21:[address] Jese Strauss, DO) Syncope (Acute) Closed left ankle fracture (Acute) Debility (Acute) Fall (Acute) MRSE x2 LLE cellulitis s/p ORIF for ankle fracture 12/23/19. Hard to known how deep this infection goes. Does not really have any oral options for abx, will continue vanc. Has h/o cdiff, has been on multiple abx the past week including cipro and clinda, both with high risk of cdiff. She is c/o diarrhea, but this may be due to her scheduled bid miralax. Will stop that and monitor sx. Will follow, thank you
[2020-01-10 16:35] LABS: Bedside Glucose 109 mg/dL (70-110)
[2020-01-10] MEDS: RisperiDONE 2 MG Tablet 4 MG PO (20:11)
[2020-01-10] MEDS: traZODone 100 MG Tablet 200 MG PO (20:11)
[2020-01-10] MEDS: Lisinopril 20 MG Tablet PO (20:11)
[2020-01-10] MEDS: Montelukast 10 MG Tablet PO (20:11)
[2020-01-10] MEDS: Atorvastatin Calcium 80 MG Tablet PO (20:11)
[2020-01-10 21:26] LABS: Bedside Glucose 161 mg/dL (70-110)
[2020-01-11] MEDS: HYDROmorphone 2 MG TABLET 4 MG PO ×5 (03:14→20:08)
[2020-01-11] MEDS: DAKIN'S SOL HALF STRENGTH (=0.25%) 1 APPLIC TOPICAL (03:18)
--- NOTE | 2020-01-11 04:21 | NURSING ---
Pt dressing changed, received pain medication beforehand. Pt crying out with lightest touch applying gauze and wraps. Unable to lift leg very high until the end when her leg was elevated on 3 pillows. Ice also applied to that left ankle. Some purulent drainage present from the outer incision
[2020-01-11] MEDS: busPIRone 15 MG TABLET 30 MG PO ×2 (05:27→17:54)
[2020-01-11] MEDS: traMADol 50 MG Tablet PO ×2 (05:27→17:59)
[2020-01-11 05:28] VITALS: PULSE 66
[2020-01-11] MEDS: amLODIPine 10 MG Tablet PO (05:28)
[2020-01-11] MEDS: Senna/Docusate Sodium 1 Tablet 2 TABLET PO ×2 (05:28→17:55)
[2020-01-11] MEDS: APIXABAN 5 MG TABLET PO ×2 (05:28→17:54)
[2020-01-11] MEDS: Baclofen 10 MG Tablet PO ×3 (05:28→21:21)
[2020-01-11] MEDS: Furosemide 20 MG Tablet PO (05:28)
[2020-01-11] MEDS: Metoprolol(XL)Succ 50 MG Tablet PO (05:28)
[2020-01-11] MEDS: Mirabegron 25 MG TAB.ER.24H PO (05:28)
[2020-01-11] MEDS: Clopidogrel Bisulfate 75 MG Tablet PO (05:28)
[2020-01-11] MEDS: Nystatin Powder 15gm Bottle 1 APPLIC TOPICAL ×2 (05:29→21:22)
[2020-01-11] MEDS: Fluticasone/Salmeterol 232-14 Inhaler 1 PUFF IH ×2 (05:30→17:55)
[2020-01-11] MEDS: Umeclidinium Bromide Inhaler 1 PUFF IH (05:30)
[2020-01-11] MEDS: Menthol/Lanolin/Calamine/Znox 113 GM Tube 1 APPLIC TOPICAL ×2 (05:31→17:54)
[2020-01-11 05:38] VITALS: BP 115/65; PULSE 66; RESP 17; TEMP 36.6; O2SAT 96
[2020-01-11 06:36] LABS: Bedside Glucose 132 mg/dL (70-110)
[2020-01-11 06:47] VITALS: O2SAT 97
[2020-01-11] MEDS: Sucralfate 1 GM Tablet PO ×4 (07:14→21:21)
[2020-01-11] MEDS: Pregabalin 75 MG Capsule PO ×3 (07:14→21:21)
[2020-01-11] MEDS: Insulin Lispro 100 UNIT/ML INSULN.PEN SC ×3 (07:15→17:52)
[2020-01-11 07:46] LABS: Vancomycin, Trough Level 19.8 ug/mL (5.0-15.0)
--- NOTE | 2020-01-11 07:46 | NURSING ---
Pt given dose of po Dilaudid at 0713. This RN tried to take full 4mg dose out of pyxis which only distributed 2mg and did not display discrepancy. Pharmacy contacted and stated to do count with lithopone charger. This was completed with no discrepancy displayed and showing this RN removing 2mg. Relayed to pharmacy who sent remainder of dose to this RN via secure tube with verification papers which were returned to pharmacy after verified with additional RN. Pharmacy to restock and look into why pyxis only presented a partial dose.
--- NOTE | 2020-01-11 09:08 | NURSING ---
Vanc held per Pharmacist for Vanc trough 19.8, stated goal range was 10-15.
--- NOTE | 2020-01-11 09:26 | PCM.RX.CS ---
Consult Pharmacy has been consulted to manage selected antiobiotic: Vancomycin Type of Consult: Follow-up Labs: Sodium 122 mmol/L (136-145) L 01/09/20 19:22 Potassium 4.4 mmol/L (3.5-5.1) 01/09/20 19:22 Chloride 90 mmol/L (98-107) L 01/09/20 19:22 Carbon Dioxide 27.0 mmol/L (21.0-32.0) 01/09/20 19:22 Anion Gap 5 (5-15) 01/09/20 19:22 BUN 7 mg/dL (7-18) 01/09/20 19:22 Creatinine 0.76 mg/dL (0.55-1.02) 01/09/20 19:22 Est GFR (MDRD) Af Amer 103 mL/min (>60) 01/09/20 19:22 Est GFR (MDRD) Non-Af 85 mL/min (>60) 01/09/20 19:22 BUN/Creatinine Ratio 9.3 RATIO (10-20) L 01/09/20 19:22 Glucose 141 mg/dL (74-106) H 01/09/20 19:22 Vancomycin Trough 19.8 ug/mL (5.0-15.0) H 01/11/20 07:12 Microbiology: Microbiology 01/06/20 19:05 Wound Abcess - No Site/Description Given Gram Stain - Final 01/06/20 19:05 Wound Abcess - No Site/Description Given Wound Culture - Final Staphylococcus epidermidis Staphylococcus epidermidis#2 01/06/20 19:05 Wound Abcess - No Site/Description Given Anaerobic Culture - Final No anaerobic bacteria isolated. 12/30/19 10:45 Mucosa - Nose - Final 12/23/19 22:47 Blood Culture (Wb) - Left Hand Blood Culture - Final No growth in 5 days. 12/23/19 23:00 Blood Culture (Wb) - No Site/Description Given Blood Culture - Final No growth in 5 days. Goal Trough: 10-15 mcg/mL Pharmacy Plan for Drug Dosing: VANCOMYCIN LEVEL RECEIVED Current Vancomycin Dose: 1750mg q12h (,) Number of Doses Received: 1750mg x3 Vancomycin Level: 19.8 (goal trough is 10-15) Hours Since Last Dose: 11 hours Renal Function: 0.76 (next SrCr level is 01/12/20) Renal Function Trend: no new level Lab/Micro: Vancomycin Plan/Comments: recommend holding dose at 0800 (had not be administered), and decreasing dose to 1gm q12h starting 01/11/20 at 2000. Pending Level: 01/13/20 at 0730 (unless SrCr level demands differently) Pharmacy Service will continue to monitor and adjust dosing as required. Follow-Up Labs: Trough Vancomycin - 01-12 at 0730
[2020-01-11 11:21] LABS: Bedside Glucose 157 mg/dL (70-110)
[2020-01-11 14:22] VITALS: BP 117/53; PULSE 68; RESP 16; TEMP 36.2; O2SAT 98
[2020-01-11 16:10] LABS: Bedside Glucose 140 mg/dL (70-110)
[2020-01-11] MEDS: Varenicline 1 MG Tablet PO (17:54)
[2020-01-11] MEDS: Vancomycin IV 1,000 MG/200 ML BAG 200 MG IV (20:10)
[2020-01-11] MEDS: 0.9% NaCl IVPB Med Flush (250 mL) 15 ML IV (20:13)
[2020-01-11 21:07] VITALS: O2SAT 98
[2020-01-11 21:20] LABS: Bedside Glucose 180 mg/dL (70-110)
[2020-01-11] MEDS: traZODone 100 MG Tablet 200 MG PO (21:21)
[2020-01-11] MEDS: Montelukast 10 MG Tablet PO (21:21)
[2020-01-11] MEDS: RisperiDONE 2 MG Tablet 4 MG PO (21:21)
[2020-01-11] MEDS: Lisinopril 20 MG Tablet PO (21:21)
[2020-01-11] MEDS: Atorvastatin Calcium 80 MG Tablet PO (21:21)
[2020-01-12] MEDS: HYDROmorphone 2 MG TABLET 4 MG PO ×6 (02:00→20:38)
[2020-01-12 05:00] VITALS: BP 122/64; PULSE 66; RESP 20; TEMP 36.8; O2SAT 94
[2020-01-12] MEDS: Baclofen 10 MG Tablet PO ×3 (05:30→20:45)
[2020-01-12] MEDS: Sucralfate 1 GM Tablet PO ×4 (05:30→20:45)
[2020-01-12] MEDS: Mirabegron 25 MG TAB.ER.24H PO (05:30)
[2020-01-12] MEDS: Furosemide 20 MG Tablet PO (05:30)
[2020-01-12] MEDS: amLODIPine 10 MG Tablet PO (05:30)
[2020-01-12] MEDS: APIXABAN 5 MG TABLET PO ×2 (05:31→17:36)
[2020-01-12] MEDS: busPIRone 15 MG TABLET 30 MG PO ×2 (05:31→17:36)
[2020-01-12] MEDS: Senna/Docusate Sodium 1 Tablet 2 TABLET PO ×2 (05:31→17:36)
[2020-01-12] MEDS: Clopidogrel Bisulfate 75 MG Tablet PO (05:31)
[2020-01-12] MEDS: Varenicline 1 MG Tablet PO ×2 (05:31→17:36)
[2020-01-12 05:32] VITALS: BP 122/64; PULSE 66
[2020-01-12] MEDS: Pregabalin 75 MG Capsule PO ×3 (05:32→20:44)
[2020-01-12] MEDS: Metoprolol(XL)Succ 50 MG Tablet PO (05:32)
[2020-01-12] MEDS: Nystatin Powder 15gm Bottle 1 APPLIC TOPICAL ×2 (05:34→20:47)
[2020-01-12] MEDS: Umeclidinium Bromide Inhaler 1 PUFF IH (05:35)
[2020-01-12] MEDS: Fluticasone/Salmeterol 232-14 Inhaler 1 PUFF IH ×2 (05:36→17:38)
[2020-01-12] MEDS: DAKIN'S SOL HALF STRENGTH (=0.25%) 1 APPLIC TOPICAL (05:37)
[2020-01-12] MEDS: Menthol/Lanolin/Calamine/Znox 113 GM Tube 1 APPLIC TOPICAL ×2 (05:52→17:38)
[2020-01-12 06:16] LABS: Bedside Glucose 123 mg/dL (70-110)
[2020-01-12 07:20] VITALS: O2SAT 95
[2020-01-12 07:41] LABS: Anion Gap 4 (5-15); BUN 6 mg/dL (7-18); BUN/Creat Ratio 8.4 RATIO (10-20); Calcium,Total 9.9 mg/dL (8.5-10.1); Chloride 101 mmol/L (98-107); Creatinine, Serum 0.72 mg/dL (0.55-1.02); EST Glomerular Filtration Rate 90 mL/min (>60); Est Glom Filt Rate - Afr Amer 109 mL/min (>60); Estimated Creatinine Clearance 73.89 ml/min; Glucose 99 mg/dL (74-106); Potassium 4.1 mmol/L (3.5-5.1); Sodium Level 134 mmol/L (136-145)
[2020-01-12] MEDS: Insulin Lispro 100 UNIT/ML INSULN.PEN SC ×2 (07:54→11:07)
[2020-01-12] MEDS: traMADol 50 MG Tablet PO ×2 (08:02→17:41)
[2020-01-12] MEDS: 0.9% Saline Lock 10 ML Syringe IV ×2 (08:03→20:30)
[2020-01-12] MEDS: Vancomycin IV 1,000 MG/200 ML BAG 200 MG IV ×2 (08:05→20:30)
--- NOTE | 2020-01-12 09:30 | NURSING ---
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 This nurse immediately turned off pump and assessed pt. Fluid was leaking out of Tegaderm dressing and pt stated she accidentally pulled on the IV. No noted swelling, redness or pain to area. IV was pulled and old site was dressed and new IV placed in right forearm. RN aware
[2020-01-12 10:31] LABS: Bedside Glucose 185 mg/dL (70-110)
[2020-01-12 13:35] VITALS: BP 114/51; PULSE 70; RESP 16; TEMP 36.4; O2SAT 97
[2020-01-12 16:46] LABS: Bedside Glucose 96 mg/dL (70-110)
--- NOTE | 2020-01-12 19:40 | CPS ---
pt refused bipap, nurse will call if patient wants it.
[2020-01-12] MEDS: Montelukast 10 MG Tablet PO (20:44)
[2020-01-12] MEDS: RisperiDONE 2 MG Tablet 4 MG PO (20:45)
[2020-01-12] MEDS: Atorvastatin Calcium 80 MG Tablet PO (20:45)
[2020-01-12] MEDS: traZODone 100 MG Tablet 200 MG PO (20:45)
[2020-01-12] MEDS: Lisinopril 20 MG Tablet PO (20:46)
[2020-01-12 21:16] LABS: Bedside Glucose 203 mg/dL (70-110)
--- NOTE | 2020-01-12 22:12 | NURSING ---
Lantus insulin given at this time dt blood sugar low earlier in josee, Pt remains compliant with fluid restriction
[2020-01-13] MEDS: HYDROmorphone 2 MG TABLET 4 MG PO ×4 (02:51→21:30)
[2020-01-13 02:56] LABS: Bedside Glucose 101 mg/dL (70-110)
[2020-01-13 06:14] VITALS: BP 102/46; PULSE 70; RESP 16; TEMP 37.1; O2SAT 92
[2020-01-13] MEDS: busPIRone 15 MG TABLET 30 MG PO ×2 (06:16→17:46)
[2020-01-13] MEDS: Pregabalin 75 MG Capsule PO ×3 (06:16→20:55)
[2020-01-13] MEDS: Furosemide 20 MG Tablet PO (06:16)
[2020-01-13] MEDS: Mirabegron 25 MG TAB.ER.24H PO (06:16)
[2020-01-13] MEDS: Baclofen 10 MG Tablet PO ×3 (06:16→20:55)
[2020-01-13] MEDS: Senna/Docusate Sodium 1 Tablet 2 TABLET PO ×2 (06:16→17:47)
[2020-01-13] MEDS: amLODIPine 10 MG Tablet PO (06:16)
[2020-01-13] MEDS: Varenicline 1 MG Tablet PO ×2 (06:16→17:47)
[2020-01-13 06:17] VITALS: BP 102/46; PULSE 70
[2020-01-13] MEDS: Metoprolol(XL)Succ 50 MG Tablet PO (06:17)
[2020-01-13] MEDS: Clopidogrel Bisulfate 75 MG Tablet PO (06:17)
[2020-01-13] MEDS: APIXABAN 5 MG TABLET PO ×2 (06:17→17:45)
[2020-01-13] MEDS: Fluticasone/Salmeterol 232-14 Inhaler 1 PUFF IH ×2 (06:19→17:48)
[2020-01-13] MEDS: Nystatin Powder 15gm Bottle 1 APPLIC TOPICAL ×2 (06:20→21:31)
[2020-01-13] MEDS: Menthol/Lanolin/Calamine/Znox 113 GM Tube 1 APPLIC TOPICAL ×2 (06:20→17:50)
[2020-01-13 06:21] LABS: Bedside Glucose 94 mg/dL (70-110)
[2020-01-13] MEDS: proMETHazine 25 MG Tablet PO (06:51)
[2020-01-13] MEDS: Umeclidinium Bromide Inhaler 1 PUFF IH (06:52)
--- NOTE | 2020-01-13 07:00 | NURSING ---
Pt refused to let me change her dressing this am, states that they changed it yesterday afternoon and I want to wait until then. Also refusing Lantus at this time, blood suger 94, and pt states that she's never that low. Dayshift WHEAT COMBINE DRIVER made aware.
[2020-01-13 07:05] VITALS: O2SAT 98
[2020-01-13 08:11] LABS: Vancomycin, Trough Level 13.3 ug/mL (5.0-15.0)
[2020-01-13] MEDS: DAKIN'S SOL HALF STRENGTH (=0.25%) 1 APPLIC TOPICAL (08:14)
[2020-01-13] MEDS: Sucralfate 1 GM Tablet PO ×4 (08:16→20:55)
--- NOTE | 2020-01-13 08:20 | RAD_ITS ---
STUDY: X-RAY CHEST REASON FOR EXAM: Female, 54 years old. Excess secretions, cough TECHNIQUE: AP and lateral views of the chest. COMPARISON: Comparison is made with prior study dated 12/24/2019. FINDINGS: Blunting of the left costal phrenic angle with mild increased markings at the left lung base suggestive of a atelectasis and/or early infiltrate. Normal size heart. Normal mediastinum and alden. Normal visualized pulmonary arteries. There is atherosclerotic calcification of the aortic arch with tortuosity. There are degenerative changes of the visualized thoracic spine. Normal visualized ribs, clavicles, and shoulders. There is no demonstrated abnormality of the visualized soft tissue structures of the upper abdomen. RAD/Chest PA and Lateral IMPRESSION: Blunting of the left costophrenic angle with a left basilar atelectasis/infiltrate. Electronically Signed: Manuelito Silva, at 12:38 EST , Service support ,
--- NOTE | 2020-01-13 08:22 | NURSING ---
pt refused all insulin this morning. pt stated she didnt feel comfortable taking it be so low. marni Bowling/wound nurse changed pt soft cast dressing per order this morning. rn aware.
--- NOTE | 2020-01-13 08:37 | NURSING ---
wound photo: left medial ankle
--- NOTE | 2020-01-13 08:37 | NURSING ---
wound photo: left lateral ankle
--- NOTE | 2020-01-13 08:40 | PCA ---
When taking pt off unit to xray, going thru double doors of unit i was wheeling her thru and holding the door at same time i just grassed the pt's left foot pedal on the door, pt moved foot back off of pedal apoligized to pt dropped her off at xray as she was coming thru the doors i heard her say to the vehicle operator technician that was transporting her thru doors don't hit my foot on door, we did that going down.
[2020-01-13] MEDS: 0.9% Saline Lock 10 ML Syringe IV ×2 (09:13→21:00)
[2020-01-13] MEDS: Vancomycin IV 1,000 MG/200 ML BAG 200 MG IV ×2 (09:17→21:13)
--- NOTE | 2020-01-13 10:07 | PN_ITS ---
Patient Problems: Active and Suspected Problems (Last Reviewed 12/16/19 @ 21:[address] Jese Strauss, DO) Cellulitis of left lower extremity (Acute) Syncope (Acute) Closed left ankle fracture (Acute) Debility (Acute) Fall (Acute) Subjective: Patient was seen this morning for follow up on left ankle wound infection. Patient relates ankle is feeling better, pain better controlled with pain medication. Patient is resting in chair with foot elevated. No complaints of fever, chills, nausea or vomiting. She relates her insurance extended approval to stay in TCU to . - Physical Exam Vitals/I&O's: Vital Signs Temp Pulse Resp BP Pulse Ox 98.8 F 70 16 102/46 L 98 01/13/20 06:14 01/13/20 06:17 01/13/20 06:14 01/13/20 06:17 01/13/20 07:05 Oxygen Flow Rate (L/min) 3.5 Oxygen Delivery Method Nasal Cannula Weight: 115.269 kg Body Mass Index (BMI) 44.2 Finger Stick Blood Glucose 422 Intake and Output for Last 24 Hours 01/11/20 01/12/20 01/13/20 23:59 23:59 23:59 Intake Total 1380.75 / 1380.75 1388.08 / 1388.08 360 / 360 Balance 1380.75 / 1380.75 1388.08 / 1388.08 360 / 360 General: Alert, Oriented x3, Cooperative, No apparent distress Extremities: Capillary Refill Less than 3 Seconds, No Calf Tenderness, - - Lateral ankle wound down to subcutaneous tissue w/ noted less cellulitis. Medial left ankle incision site healing with sutures intact, no new open lesions noted or new areas of break down. No visible abscess to the left foot or ankle. Psych/Mental Status: Appropriate, Alert and oriented to time, place, person, mood and affect Microbiology Past 72 Hours 01/06/20 19:05 Wound Abcess - No Site/Description Given Gram Stain - Final 01/06/20 19:05 Wound Abcess - No Site/Description Given Wound Culture - Final Staphylococcus epidermidis Staphylococcus epidermidis#2 01/06/20 19:05 Wound Abcess - No Site/Description Given Anaerobic Culture - Final No anaerobic bacteria isolated. Laboratory Results 01/12/20 10:23: POC Glucose 185 H 01/12/20 16:36: POC Glucose 96 01/12/20 21:08: POC Glucose 203 H 01/13/20 02:51: POC Glucose 101 01/13/20 06:12: POC Glucose 94 01/13/20 07:26: Vancomycin Trough 13.3 Current Medications Albuterol Sulfate (Albuterol 2.5 Mg/3 Ml Vial.Neb.) 2.5 mg INHALATION Q4H PRN PRN PRN Reason: Sob &/Or Wheezing Last Admin: 12/23/19 21:30 Dose: 2.5 mg Documented by: Amlodipine Besylate (Amlodipine 10 Mg Tablet) 10 mg PO DAILY [facility] Last Admin: 01/13/20 06:16 Dose: 10 mg Documented by: Apixaban (Apixaban 5 Mg Tablet) 5 mg PO BID [facility] Last Admin: 01/13/20 06:17 Dose: 5 mg Documented by: Atorvastatin Calcium (Atorvastatin Calcium 80 Mg Tablet) 80 mg PO QHS [facility] Last Admin: 01/12/20 20:45 Dose: 80 mg Documented by: Baclofen (Baclofen 10 Mg Tablet) 10 mg PO TID [facility] Last Admin: 01/13/20 06:16 Dose: 10 mg Documented by: Bisacodyl (Bisacodyl 10 Mg Suppository) 10 mg RECTAL DAILY PRN PRN Reason: Constipation Buspirone HCl (Buspirone 15 Mg Tablet) 30 mg PO BID [facility] Last Admin: 01/13/20 06:16 Dose: 30 mg Documented by: Calamine/Phenol (Menthol/Lanolin/Calamine/Znox 113 Gm Tube) 1 applic TOPICAL BID [facility]; Protocol Last Admin: 01/13/20 06:20 Dose: 1 applicatio Documented by: Cholecalciferol (Cholecalciferol (Vit D3) 1,000 Unit (25mcg)) [facility] Admin: 01/13/20 08:17 Dose: 2,000 unit Documented by: Clopidogrel Bisulfate (Clopidogrel Bisulfate 75 Mg Tablet) 75 mg PO DAILY [facility] Last Admin: 01/13/20 06:17 Dose: 75 mg Documented by: Furosemide (Furosemide 20 Mg Tablet) 20 mg PO DAILY [facility] Last Admin: 01/13/20 06:16 Dose: 20 mg Documented by: Guaifenesin (Guaifenesin 600 Mg Tablet) 600 mg PO BID [facility] Stop: 01/20/20 18:01 Hydrocortisone (Hydrocortisone 2.5% Crm) 1 applic TOPICAL TID PRN PRN; Protocol PRN Reason: ITCHING Last Admin: 01/08/20 06:45 Dose: 1 applicatio Documented by: Hydromorphone HCl (Hydromorphone 2 Mg Tablet) 4 mg PO Q3H PRN PRN PRN Reason: Pain Score 6-10 Last Admin: 01/13/20 02:51 Dose: 4 mg Documented by: Vancomycin IV Pharmacy to Dose (1 ea/ Sodium Chloride) 500 mls @ 250 mls/hr IV PRN PRN; Protocol PRN Reason: pharmacy to dose Sodium Chloride () 250 mls @ 15 mls/hr IV .[id number] PRN PRN Reason: SALINE FLUSH Last Infusion: 01/12/20 09:45 Dose: 0 mls/hr Documented by: Vancomycin HCl (Vancomycin) 1,000 mg in 200 mls @ 200 mls/hr IV Q12H [facility] Last Admin: 01/13/20 09:17 Dose: 200 mls/hr Documented by: Insulin Glargine (Insulin Glargine 100 Units/Ml Pen) 40 units SC BID [facility] Last Admin: 01/13/20 08:19 Dose: Not Given Documented by: Insulin Human Lispro (Insulin Lispro 100 Unit/Ml Insuln.Pen) 5 unit SC TIDAC [facility] Last Admin: 01/13/20 08:20 Dose: Not Given Documented by: Lactobacillus Acidophilus (Lactobacillus Acidophilus) 2 tablet PO BID [facility] Last Admin: 01/13/20 06:17 Dose: 2 tablet Documented by: Lisinopril (Lisinopril 20 Mg Tablet) 20 mg PO QHS [facility] Last Admin: 01/12/20 20:46 Dose: 20 mg Documented by: Metoprolol Succinate (Metoprolol(Xl)Succ 50 Mg Tablet) 50 mg PO DAILY [facility] Last Admin: 01/13/20 06:17 Dose: 50 mg Documented by: Mirabegron (Mirabegron 25 Mg Tab.Er.24h) 25 mg PO DAILY [facility] Last Admin: 01/13/20 06:16 Dose: 25 mg Documented by: Montelukast Sodium (Montelukast 10 Mg Tablet) 10 mg PO QHS [facility] Last Admin: 01/12/20 20:44 Dose: 10 mg Documented by: Nicotine (Nicotine 21 Mg Patch) 21 mg TRANSDERM. DAILY [facility] Last Admin: 01/13/20 06:15 Dose: 21 mg Documented by: Nitroglycerin (Nitroglycerin (Inpatient Use) 0.4 Mg Tab.Subl) 0.4 mg SUBLINGUAL Q5M PRN PRN Reason: CARDIAC/CHEST PAIN Nystatin (Nystatin Powder 15gm Bottle) 1 applic TOPICAL 0600,2200 [facility]; Protocol Last Admin: 01/13/20 06:20 Dose: 1 applicatio Documented by: Potassium Chloride (Potassium Chloride 10 Meq Tablet) 10 meq PO DAILYCM [facility] Last Admin: 01/13/20 08:16 Dose: 10 meq Documented by: Pregabalin (Pregabalin 75 Mg Capsule) 75 mg PO TID [facility] Last Admin: 01/13/20 06:16 Dose: 75 mg Documented by: Promethazine HCl (Promethazine 25 Mg Tablet) 12.5 - 25 mg PO BID PRN PRN PRN Reason: NAUSEA Last Admin: 01/13/20 06:51 Dose: 25 mg Documented by: Risperidone (Risperidone 2 Mg Tablet) 4 mg PO QHS [facility] Last Admin: 01/12/20 20:45 Dose: 4 mg Documented by: Fluticasone/Salmeterol (Fluticasone/Salmeterol 232-14 Inhaler) 1 puff IH BID [facility] Last Admin: 01/13/20 06:19 Dose: 1 puff Documented by: Senna/Docusate Sodium (Senna/Docusate Sodium 1 Tablet) 2 tablet PO BID [facility] Last Admin: 01/13/20 06:16 Dose: 2 tablet Documented by: Sodium Chloride (0.9% Saline Lock 10 Ml Syringe) 10 - 40 ml IV UD PRN PRN Reason: SALINE FLUSH Last Admin: 01/13/20 09:13 Dose: 20 ml Documented by: Sodium Hypochlorite (Dakin's Brittany Half Strength (=0.25%)) 1 applic TOPICAL DAILY [facility]; Protocol Last Admin: 01/13/20 08:14 Dose: 1 applicatio Documented by: Sucralfate (Sucralfate 1 Gm Tablet) 1 gm PO 1HR_ACHS [facility] Last Admin: 01/13/20 08:16 Dose: 1 gm Documented by: Tramadol HCl (Tramadol 50 Mg Tablet) 50 mg PO Q6H PRN PRN PRN Reason: Pain Score 1-5 Last Admin: 01/12/20 17:41 Dose: 50 mg Documented by: Trazodone HCl (Trazodone 100 Mg Tablet) 200 mg PO QHS [facility] Last Admin: 01/12/20 20:45 Dose: 200 mg Documented by: Umeclidinium Fedscreek (Umeclidinium Fedscreek Inhaler) 1 puff IH DAILY [facility] Last Admin: 01/13/20 06:52 Dose: 1 puff Documented by: Varenicline (Varenicline 1 Mg Tablet) 1 mg PO BID [facility] Last Admin: 01/13/20 06:16 Dose: 1 mg Documented by: Medical Necessity - Tobacco Use Smoking Status: Current every day smoker Tobacco Use: Cigarettes Assessment/Plan All Active Problems (Last Reviewed 12/16/19 @ 21:[address] Jese Strauss, DO) Cellulitis of left lower extremity (Acute) Difficulty in walking, not elsewhere classified (Acute) Syncope (Acute) Closed left ankle fracture (Acute) Debility (Acute) Fall (Acute) Diarrhea (Resolved) Hypokalemia (Resolved) Left trimalleolar ankle fracture/Charcot neuroarthropathy s/p ORIF on 12/23/2019 Lateral ankle ulceration down to subcutaneous tissue with cellulitis Uncontrolled Diabetes Tobacco use Multiple comorbidities Reviewed culture results, growing staph epi multiple resistances, switched to vancomycin, ID consulted and on board, patient remains on vancomycin. Change dressing daily, cleanse with dakin's soln, apply aquacel Ag, then gauze, kerlix and lukas and well padded below knee splint - change daily. Strict nonweightbearing left foot/ankle, keep foot elevated. Keep left heel offloaded with pillow. Keep lateral ankle offloaded at all times - discussed with patient on the importance of this. Continue with pain management for post op pain control. Vitamin D lab is low - recommend vitamin D supplementation, 2000 units daily. Continue with tobacco cessation, and proper glucose control to help healing of ankle fracture. Reviewed increased risks of nonhealing and potential complications given patient's multiple comorbidities, including but not limited to tobacco use and uncontrolled diabetes. Podiatry will continue to follow.
[2020-01-13 11:00] LABS: Bedside Glucose 162 mg/dL (70-110)
--- NOTE | 2020-01-13 11:05 | PCM.RX.CS ---
Consult Pharmacy has been consulted to manage selected antiobiotic: Vancomycin Type of Consult: Follow-up Suspected Infection: Skin/Soft tissue Prior Doses of Antibiotics Received/Current Regimen: On 1gm iv q12h. Labs: Sodium 134 mmol/L (136-145) L 01/12/20 06:36 Potassium 4.1 mmol/L (3.5-5.1) 01/12/20 06:36 Chloride 101 mmol/L (98-107) 01/12/20 06:36 Carbon Dioxide 29.0 mmol/L (21.0-32.0) 01/12/20 06:36 Anion Gap 4 (5-15) L 01/12/20 06:36 BUN 6 mg/dL (7-18) L 01/12/20 06:36 Creatinine 0.72 mg/dL (0.55-1.02) 01/12/20 06:36 Est GFR (MDRD) Af Amer 109 mL/min (>60) 01/12/20 06:36 Est GFR (MDRD) Non-Af 90 mL/min (>60) 01/12/20 06:36 BUN/Creatinine Ratio 8.4 RATIO (10-20) L 01/12/20 06:36 Glucose 99 mg/dL (74-106) 01/12/20 06:36 Vancomycin Trough 13.3 ug/mL (5.0-15.0) 01/13/20 07:26 Microbiology: Microbiology 01/06/20 19:05 Wound Abcess - No Site/Description Given Gram Stain - Final 01/06/20 19:05 Wound Abcess - No Site/Description Given Wound Culture - Final Staphylococcus epidermidis Staphylococcus epidermidis#2 01/06/20 19:05 Wound Abcess - No Site/Description Given Anaerobic Culture - Final No anaerobic bacteria isolated. 12/30/19 10:45 Mucosa - Nose - Final 12/23/19 22:47 Blood Culture (Wb) - Left Hand Blood Culture - Final No growth in 5 days. 12/23/19 23:00 Blood Culture (Wb) - No Site/Description Given Blood Culture - Final No growth in 5 days. Weight used for dosin kg Estimated Creatinine Clearance: ~109ml/min Goal Trough: 10-15 mcg/mL Pharmacy Plan for Drug Dosing: Trough level today 13.3 (goal range 10-15mcg/ml). No new renal labs. CrCl ~109ml/min for adjusted body weight of 77.4kg. Will continue same dose and repeat trough level on 01.14.20. Pharmacy Service will continue to monitor and adjust dosing as required. Follow-Up Labs: Trough Vancomycin - 01.14.20 @1930 before 2000 dose
[2020-01-13] MEDS: Insulin Lispro 100 UNIT/ML INSULN.PEN SC ×2 (11:28→17:45)
[2020-01-13 12:32] VITALS: BP 135/72; PULSE 67; RESP 16; TEMP 36.4; O2SAT 97
--- NOTE | 2020-01-13 12:51 | NURSING ---
Notified Dr. Mitchell's office that pt intends to leave tomorrow and no longer wanting to receive antibiotics. Waiting for a return call from Dr. Mitchell.
--- NOTE | 2020-01-13 12:53 | NURSING ---
Notified cosmetic sales assistant of the cancelled order for a PICC d/t pt discharging home tomorrow and refusing a PICC.
[2020-01-13] MEDS: traMADol 50 MG Tablet PO ×2 (13:05→20:45)
--- NOTE | 2020-01-13 13:35 | CASEMGMT ---
Social Work Pt requesting to speak with SW. SW met with pt. Pt requesting to DC tomorrow. SW explained she has IV ATBs, a picc line is going to be placed, she requires dressing changes multiple times a week and still needing assistance from staff for basic care. Pt states she understands that but she still wants to DC. Explained that is pt's right and SW will assist with restarting services. Explained referral will be made to [facility] SN but she will need others to assist with wound changes. Pt assured SW she has her sisters or someone to help her. Pt already purchased knee scooter. Notified [facility] for PT/OT/SN/SW, [facility] and [employer] of new DC date 01/13. Sister to transport. Plan: DC home alone 01/13 with [facility] PT/OT/SN/SW, [employer] FWW Soraya Petersen CREEL CLERK BASKET ASSEMBLER
[2020-01-13 16:41] LABS: Bedside Glucose 98 mg/dL (70-110)
[2020-01-13] MEDS: guaiFENesin 600 MG Tablet PO (17:47)
--- NOTE | 2020-01-13 20:02 | NURSING ---
Entered patients room to hang ATB. Patient said, what do you want? I am sleeping! Advised patient I was going to hang her ATB. Patient refused and told this nurse to come back when her HS medications were due.
[2020-01-13] MEDS: traZODone 100 MG Tablet 200 MG PO (20:55)
[2020-01-13] MEDS: Atorvastatin Calcium 80 MG Tablet PO (20:55)
[2020-01-13] MEDS: Montelukast 10 MG Tablet PO (20:55)
[2020-01-13] MEDS: Lisinopril 20 MG Tablet PO (20:55)
[2020-01-13] MEDS: RisperiDONE 2 MG Tablet 4 MG PO (20:56)
[2020-01-13 21:15] LABS: Bedside Glucose 155 mg/dL (70-110)
[2020-01-13 21:29] VITALS: PULSE 60; RESP 18; O2SAT 98
[2020-01-14] MEDS: HYDROmorphone 2 MG TABLET 4 MG PO ×2 (03:27→06:35)
[2020-01-14 05:00] VITALS: BP 129/69; PULSE 65; RESP 16; TEMP 36.4; O2SAT 97
[2020-01-14 06:10] LABS: Bedside Glucose 113 mg/dL (70-110)
[2020-01-14] MEDS: Mirabegron 25 MG TAB.ER.24H PO (06:33)
[2020-01-14] MEDS: amLODIPine 10 MG Tablet PO (06:33)
[2020-01-14] MEDS: Senna/Docusate Sodium 1 Tablet 2 TABLET PO (06:33)
[2020-01-14] MEDS: Clopidogrel Bisulfate 75 MG Tablet PO (06:33)
[2020-01-14] MEDS: Pregabalin 75 MG Capsule PO (06:33)
[2020-01-14] MEDS: guaiFENesin 600 MG Tablet PO (06:33)
[2020-01-14] MEDS: Baclofen 10 MG Tablet PO (06:33)
[2020-01-14] MEDS: busPIRone 15 MG TABLET 30 MG PO (06:33)
[2020-01-14] MEDS: Varenicline 1 MG Tablet PO (06:33)
[2020-01-14] MEDS: Sucralfate 1 GM Tablet PO (06:33)
[2020-01-14] MEDS: Furosemide 20 MG Tablet PO (06:33)
[2020-01-14] MEDS: APIXABAN 5 MG TABLET PO (06:33)
[2020-01-14 06:34] VITALS: PULSE 65
[2020-01-14] MEDS: Metoprolol(XL)Succ 50 MG Tablet PO (06:34)
[2020-01-14] MEDS: Nystatin Powder 15gm Bottle 1 APPLIC TOPICAL (06:40)
[2020-01-14] MEDS: Fluticasone/Salmeterol 232-14 Inhaler 1 PUFF IH (06:40)
[2020-01-14] MEDS: Umeclidinium Bromide Inhaler 1 PUFF IH (06:40)
[2020-01-14] MEDS: Menthol/Lanolin/Calamine/Znox 113 GM Tube 1 APPLIC TOPICAL (06:41)
[2020-01-14] MEDS: DAKIN'S SOL HALF STRENGTH (=0.25%) 1 APPLIC TOPICAL (06:42)
[2020-01-14 07:06] VITALS: PULSE 68; RESP 18; O2SAT 98
[2020-01-14 07:39] VITALS: O2SAT 99
[2020-01-14] MEDS: Insulin Lispro 100 UNIT/ML INSULN.PEN SC (08:04)
[2020-01-14] MEDS: traMADol 50 MG Tablet PO (08:21)
[2020-01-14] MEDS: 0.9% Saline Lock 10 ML Syringe IV (08:25)
[2020-01-14] MEDS: Vancomycin IV 1,000 MG/200 ML BAG 200 MG IV (08:25)
--- NOTE | 2020-01-14 08:39 | NURSING ---
TALKED TO THIS MORNING AND STATED PT IS LEAVING AGAINST HIS MEDICAL ADVISE AND THERE WAS NOTHING FOR HIM TO PRESCRIBE PO FOR ANTIBIOTICS AT PT REQUEST AND JUST REFER HER TO DR. QUESADA. REPORTED TO RN AND ORALIA MÁQRUEZ NURSE TO PASS ALONG TO [facility] WINDOW AND SIDING CRAFTSMAN.
--- NOTE | 2020-01-14 09:35 | CASEMGMT ---
Social Work Spoke with RN about Dr. Mitchell not wanting pt to DC today. Nursing explained Baribasil would have pt go AMA if she still chooses to leave. Spoke with pt whom stated she understands the risks and will leave AMA today. Her sister will be picking her up at 1030. Reported to RN. RN to complete AMA release form. Soraya Petersen, MURPHY GLASS CUTTING MACHINE FEEDER
--- NOTE | 2020-01-14 09:48 | NURSING ---
This nurse explained the need for IV antibiotic for infection and the importance of the care provided to ensure adequate healing. Patient understands, but still wants to leave facility. Patient signed AMA form and copy provided to her.
[2020-01-14 09:51] VITALS: BP 94/55; PULSE 54; RESP 20; TEMP 37; O2SAT 99
--- NOTE | 2020-01-14 09:56 | NURSING ---
IV PULLED DO TO PT GOING HOME.
--- NOTE | 2020-01-14 10:14 | NURSING ---
REMOVED NICODERM PATCH FROM PT RIGHT DELT DO TO PT D/C. WASHED ARM WITH SOAP AND WATER AND WENT OVER THE SIDE AFFECTS AND SMOKING WITH PT. PT STATED SHE UNDER STOOD. RN AWARE.
--- NOTE | 2020-01-14 10:21 | NURSING ---
NICODERM PATCH WASTED WITH RN IN RX DESTROYER.
--- NOTE | 2020-01-14 20:20 | NURSING ---
Addendum entered by Beatriz Barrios 01/15/20 04:01: pt left AMA 01/13 then returned to floor after ER visit, Dr Monae and Falguni aware Original Note: pt return to floor from ER at this time
[2020-01-14 20:30] VITALS: BP 146/66; PULSE 71; RESP 18; TEMP 37.3; O2SAT 90
[2020-01-14 23:41] LABS: Bedside Glucose 119 mg/dL (70-110)
[2020-01-15] MEDS: busPIRone 15 MG TABLET 30 MG PO ×3 (00:06→17:33)
[2020-01-15] MEDS: traZODone 50 MG Tablet 200 MG PO ×2 (00:06→20:16)
[2020-01-15] MEDS: Atorvastatin Calcium 80 MG Tablet PO ×2 (00:08→20:17)
[2020-01-15] MEDS: RisperiDONE 1 MG Tablet 4 MG PO ×2 (00:09→20:18)
[2020-01-15] MEDS: Montelukast 10 MG Tablet PO ×2 (00:09→20:18)
[2020-01-15] MEDS: Lisinopril 20 MG Tablet PO ×2 (00:09→20:18)
[2020-01-15] MEDS: HYDROmorphone 2 MG TABLET PO ×6 (00:15→20:22)
[2020-01-15] MEDS: traMADol 50 MG Tablet PO ×2 (02:39→11:41)
[2020-01-15 04:30] VITALS: BP 104/64; PULSE 67; RESP 18; TEMP 36.5; O2SAT 92
[2020-01-15] MEDS: amLODIPine 10 MG Tablet PO (04:32)
[2020-01-15] MEDS: Pregabalin 75 MG Capsule PO ×3 (04:32→20:17)
[2020-01-15 04:33] VITALS: BP 104/64; PULSE 67
[2020-01-15] MEDS: Metoprolol Tartrate 50 MG Tablet PO (04:33)
[2020-01-15] MEDS: Mirabegron 25 MG TAB.ER.24H PO (04:33)
[2020-01-15] MEDS: Furosemide 20 MG Tablet PO (04:33)
[2020-01-15] MEDS: APIXABAN 5 MG TABLET PO ×2 (04:34→17:33)
[2020-01-15] MEDS: Menthol/Lanolin/Calamine/Znox 113 GM Tube 1 APPLIC TOPICAL ×2 (04:36→17:34)
[2020-01-15] MEDS: Fluticasone/Salmeterol 232-14 Inhaler 2 PUFF IH ×2 (04:37→17:35)
[2020-01-15] MEDS: Nystatin Powder 15gm Bottle 1 APPLIC TOPICAL ×2 (04:37→17:34)
[2020-01-15] MEDS: Umeclidinium Bromide Inhaler 2 PUFF IH (04:38)
[2020-01-15 06:36] LABS: Bedside Glucose 144 mg/dL (70-110)
--- NOTE | 2020-01-15 06:41 | PN_ITS ---
Patient Problems: Active and Suspected Problems (Last Reviewed 12/16/19 @ 21:[address] Jese Strauss, DO) Cellulitis of left lower extremity (Acute) Syncope (Acute) Closed left ankle fracture (Acute) Debility (Acute) Fall (Acute) Subjective: Patient was seen this morning for follow up on left ankle wound infection. She had ORIF with Dr. Mitchell on 12/23/2019. Her pain is moderate and controlled. She denies fever, chills, loss of appetite, or vomiting. She has nausea. She left the transitional care unit earlier this week against medical advise. She returns to continue on the recommended antibiotic regimen. She has kept her dressing and splint clean and intact. - Physical Exam Vitals/I&O's: Vital Signs Temp Pulse Resp BP Pulse Ox 97.7 F L 67 18 104/64 92 01/15/20 04:30 01/15/20 04:33 01/15/20 04:30 01/15/20 04:33 01/15/20 04:30 Oxygen Flow Rate (L/min) 3 Oxygen Delivery Method Nasal Cannula Weight: 115.269 kg Body Mass Index (BMI) 44.2 Finger Stick Blood Glucose 422 Intake and Output for Last 24 Hours 01/13/20 01/14/20 01/15/20 23:59 23:59 23:59 Intake Total 1780 / 1780 320 / 320 120 / 120 Balance 1780 / 1780 320 / 320 120 / 120 General: Alert, Oriented x3, Cooperative HEENT: Atraumatic Extremities: No cyanosis, Capillary Refill Less than 3 Seconds, Diminished Peripheral Pulses, Edema - mild lower extremity, left Skin: Incision - suture removal without gapping medial and lateral aspects. no medial necrosis or infection. The lateral incision is compromised with central eschar and distal discontinuity w/ fibrous tissue. No purulence or odor. There is diffuse erythema noted without streaking that is less than last week., - - skin is dry, atrophic, and without hair Musculoskeletal: Muscle Wasting, Tenderness - lateral incision is tender to touch. no bogginess or fluctuance. compartments are soft to palpate left lower extremity Neurological: - - lack of normal epicritic sensation via light touch Psych/Mental Status: Normal Affect, Appropriate Microbiology Past 72 Hours 01/13/20 Unknown Mucosa - Nose Respiratory Syncytial Virus Ag Scrn - Final Laboratory Results 01/14/20 23:36: POC Glucose 119 H 01/15/20 06:33: POC Glucose 144 H Current Medications Albuterol Sulfate (Albuterol Sulfate Hfa 6.7 Gm Inhaler (200 Puffs)) 2 puff IH Q6H PRN PRN PRN Reason: SOB &/or Wheezing Amlodipine Besylate (Amlodipine 10 Mg Tablet) 10 mg PO DAILY [facility] Last Admin: 01/15/20 04:32 Dose: 10 mg Documented by: Apixaban (Apixaban 5 Mg Tablet) 5 mg PO BID [facility] Last Admin: 01/15/20 04:34 Dose: 5 mg Documented by: Atorvastatin Calcium (Atorvastatin Calcium 80 Mg Tablet) 80 mg PO QHS [facility] Last Admin: 01/15/20 00:08 Dose: 80 mg Documented by: Buspirone HCl (Buspirone 15 Mg Tablet) 30 mg PO BID [facility] Last Admin: 01/15/20 04:33 Dose: 30 mg Documented by: Calamine/Phenol (Menthol/Lanolin/Calamine/Znox 113 Gm Tube) 1 applic TOPICAL BID [facility]; Protocol Last Admin: 01/15/20 04:36 Dose: 1 applicatio Documented by: Furosemide (Furosemide 20 Mg Tablet) 20 mg PO DAILY [facility] Last Admin: 01/15/20 04:33 Dose: 20 mg Documented by: Hydromorphone HCl (Hydromorphone 2 Mg Tablet) 2 mg PO Q3H PRN PRN PRN Reason: Pain Score 6-10 Last Admin: 01/15/20 04:31 Dose: 2 mg Documented by: Insulin Glargine (Insulin Glargine 100 Units/Ml Pen) 40 units SC BID [facility] Last Admin: 01/15/20 00:08 Dose: Not Given Documented by: Lactobacillus Acidophilus (Lactobacillus Acidophilus) 2 tablet PO BID [facility] Last Admin: 01/15/20 04:33 Dose: 2 tablet Documented by: Lisinopril (Lisinopril 20 Mg Tablet) 20 mg PO HS [facility] Last Admin: 01/15/20 00:09 Dose: 20 mg Documented by: Metoprolol Tartrate (Metoprolol Tartrate 50 Mg Tablet) 50 mg PO DAILY [facility] Last Admin: 01/15/20 04:33 Dose: 50 mg Documented by: Mirabegron (Mirabegron 25 Mg Tab.Er.24h) 25 mg PO DAILY [facility] Last Admin: 01/15/20 04:33 Dose: 25 mg Documented by: Montelukast Sodium (Montelukast 10 Mg Tablet) 10 mg PO HS [facility] Last Admin: 01/15/20 00:09 Dose: 10 mg Documented by: Nicotine (Nicotine 21 Mg Patch) 21 mg TRANSDERM. DAILY [facility] Last Admin: 01/15/20 00:22 Dose: 21 mg Documented by: Nitroglycerin (Nitroglycerin (Inpatient Use) 0.4 Mg Tab.Subl) 0.4 mg SUBLINGUAL Q5M PRN PRN Reason: CARDIAC/CHEST PAIN Nystatin (Nystatin Powder 15gm Bottle) 1 applic TOPICAL BID [facility]; Protocol Last Admin: 01/15/20 04:37 Dose: 1 applicatio Documented by: Potassium Chloride (Potassium Chloride 10 Meq Tablet) [facility] Pregabalin (Pregabalin 75 Mg Capsule) 75 mg PO TID [facility] Last Admin: 01/15/20 04:32 Dose: 75 mg Documented by: Promethazine HCl (Promethazine 25 Mg Tablet) 12.5 mg PO Q6H PRN PRN PRN Reason: NAUSEA/VOMITING Risperidone (Risperidone 1 Mg Tablet) 4 mg PO QHS [facility] Last Admin: 01/15/20 00:09 Dose: 4 mg Documented by: Fluticasone/Salmeterol (Fluticasone/Salmeterol 232-14 Inhaler) 2 puff IH Q12 [facility] Last Admin: 01/15/20 04:37 Dose: 2 puff Documented by: Sucralfate (Sucralfate 1 Gm Tablet) 1 gm PO 1HR_ACHS [facility] Tizanidine HCl (Tizanidine Hcl 2 Mg Tablet) 6 mg PO Q8H PRN PRN PRN Reason: SPASMS Tramadol HCl (Tramadol 50 Mg Tablet) 50 mg PO Q6H PRN PRN PRN Reason: Pain Score 1-5 Last Admin: 01/15/20 02:39 Dose: 50 mg Documented by: Trazodone HCl (Trazodone 50 Mg Tablet) 200 mg PO QHS [facility] Last Admin: 01/15/20 00:06 Dose: 200 mg Documented by: Umeclidinium Samaria (Umeclidinium Samaria Inhaler) 2 puff IH DAILY [facility] Last Admin: 01/15/20 04:38 Dose: 2 puff Documented by: Medical Necessity - Tobacco Use Smoking Status: Current every day smoker Tobacco Use: Cigarettes Assessment/Plan All Active Problems (Last Reviewed 12/16/19 @ 21:[address] Jese Strauss DO) Cellulitis of left lower extremity (Acute) Difficulty in walking, not elsewhere classified (Acute) Syncope (Acute) Closed left ankle fracture (Acute) Debility (Acute) Fall (Acute) Diarrhea (Resolved) Hypokalemia (Resolved) Left trimalleolar ankle fracture/Charcot neuroarthropathy s/p ORIF on 12/23/2019 Lateral ankle ulceration down to subcutaneous tissue with cellulitis Uncontrolled Diabetes Tobacco use Multiple comorbidities I reviewed and discussed her case. She is afebrile and vitals are stable. Updated labs will be ordered. Reviewed culture results, growing staph epi multiple resistances. The most appropriate antibiotic choice at this time is vancomycin, infectious disease is on consult. She left against medical advise and has now returned. I recommend resuming her prior treatment plan. Her sutures were removed this morning and she tolerated this well. To change dressing daily, cleanse with dakin's soln, apply aquacel Ag, then gauze, kerlix and lukas and well padded below knee splint. Strict nonweightbearing left foot/ankle, keep foot elevated. Keep left heel offloaded with pillow. Keep lateral ankle offloaded at all times - discussed with patient on the importance of this. Continue with pain management for post operative pain control. Vitamin D lab is low - continue vitamin D supplementation, 2000 units daily. Social work consulted for safe discharge planning. Medical management and DVT prophylaxis per Dr. Monae is appreciated. Podiatry will continue to follow. Please do not hesitate to call if you have any questions. Veronica Smith DPM, FACF[facility] [phone]
[2020-01-15] MEDS: Sucralfate 1 GM Tablet PO ×4 (07:04→20:16)
[2020-01-15 07:40] VITALS: O2SAT 96
[2020-01-15 08:36] LABS: Absolute Lymphocyte Count 1.43 X10^3/uL (0.83-4.51); Basophil% 0.9 % (0-1); Eosinophil# 0.25 X10^3/uL; Eosinophils% 2.1 % (0-5); Hematocrit 34.8 % (37-47); Hemoglobin 11.2 g/dL (12.0-15.0); Lymphocyte # 1.43 X10^3/ul (4.0); Lymphocyte % 12.2 % (19-41); Mean Corp Hgb Conc 32.2 g/dL (32-36); Mean Corpuscular Hgb 28.1 pg (27.0-32.0); Mean Corpuscular Volume 87.4 fL (81-99); Monocyte# 0.89 X10^3/uL; Monocyte% 7.6 % (0-10); NRBC Flagged by Analyzer 0 % (0-5); Neutrophil # 9.01 X10^3/uL (2.7-7.7); Neutrophil % 76.9 % (47-70); Platelet Count 387 K/mm3 (150-450); RBC Distribution Width CV 15.1 % (11.6-14.6); RBC Distribution Width SD 48.9 fl (35.1-43.9); Red Blood Count 3.98 M/mm3 (4.2-5.4); White Blood Count 11.7 K/mm3 (4.4-11.0)
[2020-01-15] MEDS: Vancomycin IV 1,000 MG/200 ML BAG 200 MG IV ×2 (08:56→22:20)
[2020-01-15] MEDS: 0.9% Normal Saline 250 ML IV.SOLN. IV (08:56)
[2020-01-15 09:01] LABS: ALB/GLOB Ratio 0.6 RATIO (0.9-2.4); AST(SGOT) 16 U/L (15-37); Alanine Aminotransfer ALT/SGPT 20 U/L (13-56); Albumin, Serum 2.8 g/dL (3.2-5.0); Alkaline Phosphatase 157 U/L (45-117); Anion Gap 8 (5-15); BUN 4 mg/dL (7-18); BUN/Creat Ratio 5.7 RATIO (10-20); Calcium,Total 9.9 mg/dL (8.5-10.1); Chloride 102 mmol/L (98-107); Creatinine, Serum 0.71 mg/dL (0.55-1.02); EST Glomerular Filtration Rate 92 mL/min (>60); Est Glom Filt Rate - Afr Amer 111 mL/min (>60); Estimated Creatinine Clearance 74.93 ml/min; Globulin 4.4 g/dL (2.2-4.2); Glucose 128 mg/dL (74-106); Potassium 3.7 mmol/L (3.5-5.1); Protein, Total 7.2 g/dL (6.4-8.2); Sodium Level 136 mmol/L (136-145)
--- NOTE | 2020-01-15 09:03 | PCM.RX.CS ---
Consult Pharmacy has been consulted to manage selected antiobiotic: Vancomycin Type of Consult: Follow-up Prior Doses of Antibiotics Received/Current Regimen: the patient was previously on 1000mg IV q12h with the last dose given yesterday morning at 0825 Labs: Sodium 136 mmol/L (136-145) 01/15/20 08:30 Potassium 3.7 mmol/L (3.5-5.1) 01/15/20 08:30 Chloride 102 mmol/L (98-107) 01/15/20 08:30 Carbon Dioxide 26.0 mmol/L (21.0-32.0) 01/15/20 08:30 Anion Gap 8 (5-15) 01/15/20 08:30 BUN 4 mg/dL (7-18) L 01/15/20 08:30 Creatinine 0.71 mg/dL (0.55-1.02) 01/15/20 08:30 Est GFR (MDRD) Af Amer 111 mL/min (>60) 01/15/20 08:30 Est GFR (MDRD) Non-Af 92 mL/min (>60) 01/15/20 08:30 BUN/Creatinine Ratio 5.7 RATIO (10-20) L 01/15/20 08:30 Glucose 128 mg/dL (74-106) H 01/15/20 08:30 Vancomycin Trough 13.3 ug/mL (5.0-15.0) 01/13/20 07:26 Microbiology: Microbiology 01/13/20 Unknown Mucosa - Nose Respiratory Syncytial Virus Ag Scrn - Final 01/06/20 19:05 Wound Abcess - No Site/Description Given Gram Stain - Final 01/06/20 19:05 Wound Abcess - No Site/Description Given Wound Culture - Final Staphylococcus epidermidis Staphylococcus epidermidis#2 01/06/20 19:05 Wound Abcess - No Site/Description Given Anaerobic Culture - Final No anaerobic bacteria isolated. 12/30/19 10:45 Mucosa - Nose - Final 12/23/19 22:47 Blood Culture (Wb) - Left Hand Blood Culture - Final No growth in 5 days. 12/23/19 23:00 Blood Culture (Wb) - No Site/Description Given Blood Culture - Final No growth in 5 days. Weight used for dosin kg Goal Trough: 10-15 mcg/mL Pharmacy Plan for Drug Dosing: The patient left TCU sometime after yesterday morning's dose but then has now returned. Last night's dose was missed. Will restart same dose of 1000mg IV q12h and recheck a trough level before the 4th dose tomorrow evening. Pharmacy Service will continue to monitor and adjust dosing as required. Follow-Up Labs: Trough Vancomycin Labs to be done on [date and time ordered]: 01/16/20 20:30
[2020-01-15 11:15] LABS: Bedside Glucose 218 mg/dL (70-110)
[2020-01-15 12:56] VITALS: BP 119/57; PULSE 58; RESP 17; TEMP 36.5; O2SAT 97
[2020-01-15 16:26] LABS: Bedside Glucose 133 mg/dL (70-110)
[2020-01-15 21:15] LABS: Bedside Glucose 183 mg/dL (70-110)
--- NOTE | 2020-01-15 21:45 | CPS ---
no hospital bipap in room at this time
[2020-01-16 05:00] VITALS: BP 149/84; PULSE 104; RESP 18; TEMP 36.6; O2SAT 96
[2020-01-16] MEDS: HYDROmorphone 2 MG TABLET PO ×5 (06:18→22:02)
[2020-01-16] MEDS: Pregabalin 75 MG Capsule PO ×3 (06:19→21:02)
[2020-01-16] MEDS: busPIRone 15 MG TABLET 30 MG PO ×2 (06:20→17:10)
[2020-01-16 06:21] VITALS: BP 149/84; PULSE 104
[2020-01-16] MEDS: Metoprolol Tartrate 50 MG Tablet PO (06:21)
[2020-01-16] MEDS: Furosemide 20 MG Tablet PO (06:21)
[2020-01-16] MEDS: Mirabegron 25 MG TAB.ER.24H PO (06:21)
[2020-01-16] MEDS: Sucralfate 1 GM Tablet PO ×4 (06:22→20:51)
[2020-01-16] MEDS: APIXABAN 5 MG TABLET PO ×2 (06:22→17:10)
[2020-01-16] MEDS: Fluticasone/Salmeterol 232-14 Inhaler 2 PUFF IH ×2 (06:23→17:11)
[2020-01-16] MEDS: Umeclidinium Bromide Inhaler 2 PUFF IH (06:23)
[2020-01-16] MEDS: Menthol/Lanolin/Calamine/Znox 113 GM Tube 1 APPLIC TOPICAL ×2 (06:25→17:13)
[2020-01-16] MEDS: Nystatin Powder 15gm Bottle 1 APPLIC TOPICAL ×2 (06:25→17:13)
[2020-01-16] MEDS: amLODIPine 10 MG Tablet PO (06:29)
[2020-01-16 06:50] LABS: Bedside Glucose 134 mg/dL (70-110)
[2020-01-16 07:31] VITALS: O2SAT 96
[2020-01-16] MEDS: traMADol 50 MG Tablet PO ×2 (08:16→16:22)
[2020-01-16] MEDS: Ammonium Lactate 225 gm Bottle 1 APPLIC TOPICAL (08:17)
[2020-01-16] MEDS: Insulin Lispro 100 UNIT/ML INSULN.PEN SC ×3 (08:21→17:11)
[2020-01-16] MEDS: 0.9% Saline Lock 10 ML Syringe IV ×2 (09:34→20:48)
[2020-01-16] MEDS: Vancomycin IV 1,000 MG/200 ML BAG 200 MG IV ×2 (09:34→20:49)
[2020-01-16 10:55] LABS: Bedside Glucose 248 mg/dL (70-110)
--- NOTE | 2020-01-16 12:04 | NURSING ---
wound photo: left lateral ankle
--- NOTE | 2020-01-16 12:05 | NURSING ---
wound photo: left medial ankle
[2020-01-16 13:15] VITALS: BP 129/63; PULSE 68; RESP 18; TEMP 36.9; O2SAT 97
--- NOTE | 2020-01-16 13:41 | NURSING ---
market basket maker here & inserted picc line.
--- NOTE | 2020-01-16 15:17 | NURSING ---
This nurse called respiratory to ask about bipap for pt. Pt had hospital bipap in room before she went AMA and has not had it since she has been back. Respiratory explained pt is non-compliant and refusing bipap.
[2020-01-16 16:11] LABS: Bedside Glucose 105 mg/dL (70-110)
--- NOTE | 2020-01-16 19:25 | ADU_ITS ---
Reason For Study: Dysvascular limb appearance and wound healing surgical delay Right Velocities Left Velocities Ext. Iliac Artery, dist = 228.3 cm./sec. Ext Iliac Artery, dist = 263.9 cm./sec. Common Femoral Artery, mid = 147.5 cm./sec. Common Femoral Artery, mid = 196 cm./sec. Supf Femoral Artery, prox = 133.5 cm./sec. Supf. Femoral Artery, prox = 179.8 cm./sec. Supf Femoral Artery, mid = 285 cm./sec. Supf. Femoral Artery, mid = 128.1 cm./sec. Supf Femoral Artery, dist. = 123.5 cm./sec. Supf. Femoral Artery, dist = 130.8 cm./sec. Profunda Femoral Artery = 143.9 cm./sec. Profunda Femoral Artery = 163.6 cm./sec. Popliteal Artery, mid = 76 cm./sec. Popliteal Artery, mid = 128.6 cm./sec. Post. Tibial Artery, prox = 103.3 cm./sec. Post. Tibial Artery, prox = 122 cm./sec. Post. Tibial Artery, mid = 88.7 cm./sec. Post Tibial Artery, mid = 111 cm./sec. Post. Tibial Artery, dist = 67.7 cm./sec. Post Tibial Artery, dist. = 102 cm./sec. Peroneal Artery, prox = 61.1 cm./sec. Peroneal Artery, prox = 76 cm./sec. Peroneal Artery, mid = 72.1 cm./sec. Peroneal Artery, mid = 94.2 cm./sec. Peroneal Artery,dist = 66.6 cm./sec. Peroneal Artery,dist. = 116.1 cm./sec. Ant. Tibial Artery, prox = 84.2 cm./sec. Ant.Tibial Artery, prox = 110.6 cm./sec. Ant. Tibial Artery, mid = 102.7 cm./sec. Ant Tibial Artery, mid = 83.3 cm./sec. Ant. Tibial Artery, dist = 85.5 cm./sec. Ant. Tibial Artery, distal = 86.8 cm./sec. Procedure Exam performed portable in patient room. Interpretation Summary 20-49% stenosis right common femoral artery 50-99% stenosis right mid superficial femoral artery Patent right posterior tibial, peroneal, and anterior tibial arteries. 20-49% stenosis left external iliac artery 20-49% stenosis left superficial femoral artery 20-49% stenosis left popliteal artery Patent left posterior tibial, peroneal, and anterior tibial arteries. Ordering Physician: Veronica Smith Referring Physician: Janel Taylor Performed By: Bianca Loza RVT
[2020-01-16] MEDS: traZODone 50 MG Tablet 200 MG PO (20:54)
[2020-01-16] MEDS: Baclofen 10 MG Tablet PO (20:55)
[2020-01-16] MEDS: Atorvastatin Calcium 80 MG Tablet PO (20:56)
[2020-01-16] MEDS: Montelukast 10 MG Tablet PO (20:56)
[2020-01-16] MEDS: RisperiDONE 1 MG Tablet 4 MG PO (20:56)
[2020-01-16] MEDS: Lisinopril 20 MG Tablet PO (20:57)
[2020-01-16 21:10] LABS: Bedside Glucose 171 mg/dL (70-110)
[2020-01-16 21:28] LABS: Vancomycin, Trough Level 11.6 ug/mL (5.0-15.0)
--- NOTE | 2020-01-16 23:24 | PCM.RX.CS ---
Consult Pharmacy has been consulted to manage selected antiobiotic: Vancomycin Type of Consult: Follow-up Suspected Infection: Skin/Soft tissue Prior Doses of Antibiotics Received/Current Regimen: Medications Vancomycin HCl (Vancomycin) 1,000 mg in 200 mls @ 200 mls/hr IV Q12H [facility] Last Admin: 01/16/20 21:51 Dose: Infused Labs: Sodium 136 mmol/L (136-145) 01/15/20 08:30 Potassium 3.7 mmol/L (3.5-5.1) 01/15/20 08:30 Chloride 102 mmol/L (98-107) 01/15/20 08:30 Carbon Dioxide 26.0 mmol/L (21.0-32.0) 01/15/20 08:30 Anion Gap 8 (5-15) 01/15/20 08:30 BUN 4 mg/dL (7-18) L 01/15/20 08:30 Creatinine 0.71 mg/dL (0.55-1.02) 01/15/20 08:30 Est GFR (MDRD) Af Amer 111 mL/min (>60) 01/15/20 08:30 Est GFR (MDRD) Non-Af 92 mL/min (>60) 01/15/20 08:30 BUN/Creatinine Ratio 5.7 RATIO (10-20) L 01/15/20 08:30 Glucose 128 mg/dL (74-106) H 01/15/20 08:30 Vancomycin Trough 11.6 ug/mL (5.0-15.0) 01/16/20 20:48 Microbiology: Microbiology 01/13/20 Unknown Mucosa - Nose Respiratory Syncytial Virus Ag Scrn - Final 01/06/20 19:05 Wound Abcess - No Site/Description Given Gram Stain - Final 01/06/20 19:05 Wound Abcess - No Site/Description Given Wound Culture - Final Staphylococcus epidermidis Staphylococcus epidermidis#2 01/06/20 19:05 Wound Abcess - No Site/Description Given Anaerobic Culture - Final No anaerobic bacteria isolated. 12/30/19 10:45 Mucosa - Nose - Final 12/23/19 22:47 Blood Culture (Wb) - Left Hand Blood Culture - Final No growth in 5 days. 12/23/19 23:00 Blood Culture (Wb) - No Site/Description Given Blood Culture - Final No growth in 5 days. Weight used for dosin.3 kg Estimated Creatinine Clearance: 75 Goal Trough: 10-15 mcg/mL Pharmacy Plan for Drug Dosing: Vancomycin trough level of 11.6 was within the target range of 10-15. Will continue dosing at 1000mg q12h and redraw trough in 4 days. Pharmacy Service will continue to monitor and adjust dosing as required. Follow-Up Labs: Trough Vancomycin Labs to be done on [date and time ordered]: 01/20/20 @2030
[2020-01-17 05:00] VITALS: BP 157/82; PULSE 88; RESP 16; TEMP 36.8; O2SAT 97
[2020-01-17] MEDS: amLODIPine 10 MG Tablet PO (05:54)
[2020-01-17] MEDS: HYDROmorphone 2 MG TABLET PO ×5 (05:54→19:45)
[2020-01-17 05:55] VITALS: BP 157/82; PULSE 88
[2020-01-17] MEDS: Metoprolol Tartrate 50 MG Tablet PO (05:55)
[2020-01-17] MEDS: Furosemide 20 MG Tablet PO (05:55)
[2020-01-17] MEDS: Baclofen 10 MG Tablet PO ×3 (05:55→19:47)
[2020-01-17] MEDS: APIXABAN 5 MG TABLET PO ×2 (05:55→18:06)
[2020-01-17] MEDS: Sucralfate 1 GM Tablet PO ×4 (05:55→19:47)
[2020-01-17] MEDS: busPIRone 15 MG TABLET 30 MG PO ×3 (05:55→19:50)
[2020-01-17] MEDS: Mirabegron 25 MG TAB.ER.24H PO (05:55)
[2020-01-17] MEDS: Menthol/Lanolin/Calamine/Znox 113 GM Tube 1 APPLIC TOPICAL (05:56)
[2020-01-17] MEDS: Fluticasone/Salmeterol 232-14 Inhaler 2 PUFF IH ×2 (05:56→18:10)
[2020-01-17] MEDS: Ammonium Lactate 225 gm Bottle 1 APPLIC TOPICAL (05:57)
[2020-01-17] MEDS: Umeclidinium Bromide Inhaler 2 PUFF IH (05:58)
[2020-01-17] MEDS: Nystatin Powder 15gm Bottle 1 APPLIC TOPICAL (05:58)
[2020-01-17] MEDS: Pregabalin 75 MG Capsule PO ×3 (06:02→19:53)
[2020-01-17 06:26] LABS: Bedside Glucose 129 mg/dL (70-110)
[2020-01-17 07:05] VITALS: O2SAT 97
--- NOTE | 2020-01-17 08:44 | PCM.PROGNOTE ---
Patient Problems: Active and Suspected Problems (Last Reviewed 12/16/19 @ 21:[address] Jese Strauss, DO) Cellulitis of left lower extremity (Acute) Syncope (Acute) Closed left ankle fracture (Acute) Debility (Acute) Fall (Acute) Subjective: Patient was seen this morning for follow up on left ankle wound infection. She had ORIF with Dr. Mitchlel on 12/23/2019. Her pain is moderate and controlled. She denies fever, chills, loss of appetite, or vomiting. She has intermittent nausea that she relates is not unusual for her. - Physical Exam Vitals/I&O's: Vital Signs Temp Pulse Resp BP Pulse Ox 98.3 F 88 16 157/82 H 97 01/17/20 05:00 01/17/20 05:55 01/17/20 05:00 01/17/20 05:55 01/17/20 05:00 Oxygen Flow Rate (L/min) 3 Oxygen Delivery Method Room Air Weight: 115.269 kg Body Mass Index (BMI) 44.2 Finger Stick Blood Glucose 422 Intake and Output for Last 24 Hours 01/15/20 01/16/20 01/17/20 23:59 23:59 23:59 Intake Total 1455 / 1455 2050 / 2050 240 / 240 Output Total 300 / 300 Balance 1455 / 1455 1750 / 1750 240 / 240 General: Alert, Oriented x3, Cooperative HEENT: Atraumatic Extremities: No cyanosis, Capillary Refill Less than 3 Seconds, No Calf Tenderness, Diminished Peripheral Pulses, Edema Skin: Incision - Medial incision with sutures previously removed is coapted well aligned without drainage. The erythema around the lateral incision and inflammatory changes are resolved. There is skin discontinuity with granular base at the central and distal one fourth of the wound without exposed hardware., - - There is no streaking. Her adjacent skin is dry hairless and atrophic Musculoskeletal: Muscle Wasting, Tenderness - Pain with wound and surgical site palpation. Active range of motion digits x5 left. Negative Huey and De Souza sign bilateral. Compartments of left lower extremity remain soft to palpate Neurological: - - There is some altered sensation light touch to the left lower extremity especially the toes Psych/Mental Status: Normal Affect, Appropriate, Anxious Laboratory Results 01/16/20 10:44: POC Glucose 248 H 11/12/20 16:08: POC Glucose 105 01/16/20 20:48: Vancomycin Trough 11.6 01/16/20 20:58: POC Glucose 171 H 01/17/20 06:07: POC Glucose 129 H Current Medications Albuterol Sulfate (Albuterol Sulfate Hfa 6.7 Gm Inhaler (200 Puffs)) 2 puff IH Q6H PRN PRN PRN Reason: SOB &/or Wheezing Amlodipine Besylate (Amlodipine 10 Mg Tablet) 10 mg PO DAILY [facility] Last Admin: 01/17/20 05:54 Dose: 10 mg Documented by: Apixaban (Apixaban 5 Mg Tablet) 5 mg PO BID [facility] Last Admin: 01/17/20 05:55 Dose: 5 mg Documented by: Atorvastatin Calcium (Atorvastatin Calcium 80 Mg Tablet) 80 mg PO QHS [facility] Last Admin: 01/16/20 20:56 Dose: 80 mg Documented by: Baclofen (Baclofen 10 Mg Tablet) 10 mg PO TID [facility] Last Admin: 01/17/20 05:55 Dose: 10 mg Documented by: Buspirone HCl (Buspirone 15 Mg Tablet) 30 mg PO BID [facility] Last Admin: 01/17/20 05:55 Dose: 30 mg Documented by: Calamine/Phenol (Menthol/Lanolin/Calamine/Znox 113 Gm Tube) 1 applic TOPICAL BID [facility]; Protocol Last Admin: 01/17/20 05:56 Dose: 1 applicatio Documented by: Furosemide (Furosemide 20 Mg Tablet) 20 mg PO DAILY [facility] Last Admin: 01/17/20 05:55 Dose: 20 mg Documented by: Heparin Sodium (Beef Lung) (Heparin Pf Lock 10 Units/Ml 50 Units/5 Ml Syringe) 50 units IV UD PRN PRN Reason: PICC Line Heparin Flush Hydromorphone HCl (Hydromorphone 2 Mg Tablet) 2 mg PO Q3H PRN PRN PRN Reason: Pain Score 6-10 Last Admin: 01/17/20 05:54 Dose: 2 mg Documented by: Vancomycin IV Pharmacy to Dose (1 ea/ Sodium Chloride) 500 mls @ 250 mls/hr IV X1 PRN; Protocol PRN Reason: Rx to Dose Vancomycin HCl (Vancomycin) 1,000 mg in 200 mls @ 200 mls/hr IV Q12H [facility] Last Infusion: 01/16/20 21:51 Dose: Infused Documented by: Insulin Glargine (Insulin Glargine 100 Units/Ml Pen) 40 units SC BID [facility] Last Admin: 01/17/20 06:08 Dose: 40 u Documented by: Insulin Human Lispro (Insulin Lispro 100 Unit/Ml Insuln.Pen) 5 unit SC TIDAC [facility] Last Admin: 01/16/20 17:11 Dose: 5 units Documented by: Lactic Acid (Ammonium Lactate 225 Gm Bottle) 1 applic TOPICAL DAILY [facility]; Protocol Last Admin: 01/17/20 05:57 Dose: 1 applicatio Documented by: Lactobacillus Acidophilus (Lactobacillus Acidophilus) 2 tablet PO BID [facility] Last Admin: 01/17/20 05:54 Dose: 2 tablet Documented by: Lisinopril (Lisinopril 20 Mg Tablet) 20 mg PO [facility] Last Admin: 01/16/20 20:57 Dose: 20 mg Documented by: Metoprolol Tartrate (Metoprolol Tartrate 50 Mg Tablet) 50 mg PO DAILY [facility] Last Admin: 01/17/20 05:55 Dose: 50 mg Documented by: Mirabegron (Mirabegron 25 Mg Tab.Er.24h) 25 mg PO DAILY [facility] Last Admin: 01/17/20 05:55 Dose: 25 mg Documented by: Montelukast Sodium (Montelukast 10 Mg Tablet) 10 mg PO HS [facility] Last Admin: 01/16/20 20:56 Dose: 10 mg Documented by: Nicotine (Nicotine 21 Mg Patch) 21 mg TRANSDERM. DAILY [facility] Last Admin: 01/17/20 05:53 Dose: 21 mg Documented by: Nitroglycerin (Nitroglycerin (Inpatient Use) 0.4 Mg Tab.Subl) 0.4 mg SUBLINGUAL Q5M PRN PRN Reason: CARDIAC/CHEST PAIN Nystatin (Nystatin Powder 15gm Bottle) 1 applic TOPICAL BID [facility]; Protocol Last Admin: 01/17/20 05:58 Dose: 1 applicatio Documented by: Potassium Chloride (Potassium Chloride 10 Meq Tablet) 10 meq PO DAILYCM [facility] Last Admin: 01/16/20 08:15 Dose: 10 meq Documented by: Pregabalin (Pregabalin 75 Mg Capsule) 75 mg PO TID [facility] Last Admin: 01/17/20 06:02 Dose: 75 mg Documented by: Promethazine HCl (Promethazine 25 Mg Tablet) 12.5 mg PO Q6H PRN PRN PRN Reason: NAUSEA/VOMITING Risperidone (Risperidone 1 Mg Tablet) 4 mg PO QHS [facility] Last Admin: 01/16/20 20:56 Dose: 4 mg Documented by: Fluticasone/Salmeterol (Fluticasone/Salmeterol 232-14 Inhaler) 2 puff IH Q12 [facility] Last Admin: 01/17/20 05:56 Dose: 2 puff Documented by: Sodium Chloride (0.9% Normal Saline 250 Ml Iv.Soln.) 250 ml IV BID PRN PRN PRN Reason: SALINE FLUSH Last Admin: 01/15/20 08:56 Dose: 250 ml Documented by: Sodium Chloride (0.9% Saline Lock 10 Ml Syringe) 10 - 40 ml IV UD PRN PRN Reason: SALINE FLUSH Last Admin: 01/16/20 20:48 Dose: 10 ml Documented by: Sodium Chloride (0.9% Saline Lock 10 Ml Syringe) 10 - 40 ml IV UD PRN PRN Reason: Open End PICC Flush Sodium Chloride (0.9 % Nacl (Sterile) Posiflush 10 Ml) 10 - 40 ml IV UD PRN PRN Reason: Port access or dressing change Sodium Hypochlorite (Dakin's Brittany Half Strength (=0.25%)) 1 applic TOPICAL DAILY@1000 [facility]; Protocol Last Admin: 01/16/20 14:29 Dose: Not Given Documented by: Sucralfate (Sucralfate 1 Gm Tablet) 1 gm PO 1HR_ACHS [facility] Last Admin: 01/17/20 05:55 Dose: 1 gm Documented by: Tizanidine HCl (Tizanidine Hcl 2 Mg Tablet) 6 mg PO Q8H PRN PRN PRN Reason: SPASMS Tramadol HCl (Tramadol 50 Mg Tablet) 50 mg PO Q6H PRN PRN PRN Reason: Pain Score 1-5 Last Admin: 01/16/20 16:22 Dose: 50 mg Documented by: Trazodone HCl (Trazodone 50 Mg Tablet) 200 mg PO QHS [facility] Last Admin: 01/16/20 20:54 Dose: 200 mg Documented by: Umeclidinium [place] (Umeclidinium [place] Inhaler) 2 puff IH DAILY [facility] Last Admin: 01/17/20 05:58 Dose: 2 puff Documented by: Medical Necessity - Tobacco Use Smoking Status: Current every day smoker Tobacco Use: Cigarettes Assessment/Plan All Active Problems (Last Reviewed 12/16/19 @ 21:[address] Jese Strauss, DO) Cellulitis of left lower extremity (Acute) Difficulty in walking, not elsewhere classified (Acute) Syncope (Acute) Closed left ankle fracture (Acute) Debility (Acute) Fall (Acute) Diarrhea (Resolved) Hypokalemia (Resolved) Left trimalleolar ankle fracture/Charcot neuroarthropathy s/p ORIF on 12/23/2019 Lateral ankle ulceration down to subcutaneous tissue with cellulitis resolving Uncontrolled Diabetes Tobacco use Multiple comorbidities vascular impairment work up in process I reviewed and discussed her case. She is afebrile and vitals are stable. Labs reviewed without gross abnormalities earlier this week. Reviewed culture results, growing staph epi multiple resistances. The most appropriate antibiotic choice at this time is vancomycin, infectious disease is on consult. She is starting to improve clinically and I recommend continuation. There is no purulence or erythema noted today. To change dressing daily with aquacel Ag, then gauze, kerlix and lukas and well padded below knee splint. To moisturize adjacent skin with Lac-Hydrin. Surgical site was evaluated with a new dressing was applied this morning. Strict nonweightbearing left foot/ankle, keep foot elevated. Keep left heel offloaded with pillow. Keep lateral ankle offloaded at all times - discussed with patient on the importance of this. I recommended noninvasive vascular studies to assess for any vascular impairment or small vessel disease given her dysvascular regions, delayed healing of her ankle surgery wound, and her extensive smoking history. An arterial Doppler and systolic toe pressure/thigh pressures will be obtained. She is not able to get an ankle-brachial index because of her recent ankle fracture repair discomfort. It is okay to remove the splint and dressing to perform this test. This was discussed with photonic laboratory technician. Continue with pain management for post operative pain control. Vitamin D lab is low - continue vitamin D supplementation, 2000 units daily. Social work consulted for safe discharge planning. Medical management and DVT prophylaxis per Dr. Monae is appreciated. Podiatry will continue to follow biweekly while in the transitional care unit. Please do not hesitate to call if you have any questions. Veronica Smith DPM, [facility] [phone]
[2020-01-17] MEDS: proMETHazine 25 MG Tablet 12.5 MG PO (08:48)
--- NOTE | 2020-01-17 08:55 | ART_ITS ---
Reason For Study: ulcer Procedure A bilateral lower extremity continuous wave Doppler with analog waveform analysis,segmental pressures,and ankle brachial indexes without exercise. Left Segmental Pressures Left brachial= 149mmHg. Left thigh = 202mmHg. Left digit = 100 mmHg. The left dorsalis pedis waveforms are triphasic. Right Segmental Pressures Right thigh = 204mmHg. Right digit = 140 mmHg. The right dorsalis pedis waveforms are triphasic. The right posterior tibial artery waveforms are triphasic. Indices The right digital-brachial index is .94. The left digital-brachial index is .67. Interpretation Summary Technically limited bilateral extremity resting noninvasive arterial examination Normal right digital brachial index and normal right posterior tibial and dorsalis pedis triphasic Doppler waveforms at rest Abnormal left digital brachial index Inability to access the left posterior tibial Normal left dorsalis pedis triphasic waveform Critical ischemia does not appear to be present bilaterally Ordering Physician: Veronica Smith Performed By: SERGEY EVANS Joe
[2020-01-17] MEDS: 0.9% Saline Lock 10 ML Syringe IV ×3 (09:01→22:09)
[2020-01-17] MEDS: Vancomycin IV 1,000 MG/200 ML BAG 200 MG IV ×2 (09:01→22:08)
--- NOTE | 2020-01-17 09:15 | NURSING ---
nicotine patch verified to left delt
[2020-01-17] MEDS: Insulin Lispro 100 UNIT/ML INSULN.PEN SC (09:16)
[2020-01-17] MEDS: traMADol 50 MG Tablet PO ×2 (10:49→18:04)
[2020-01-17 10:51] LABS: Bedside Glucose 165 mg/dL (70-110)
[2020-01-17] MEDS: DAKIN'S SOL HALF STRENGTH (=0.25%) 1 APPLIC TOPICAL (11:58)
[2020-01-17 13:43] VITALS: BP 135/80; PULSE 72; RESP 18; TEMP 37.2; O2SAT 97
--- NOTE | 2020-01-17 16:04 | NURSING ---
Resident and sister, Jessica, notified of staf testing positive for COVID.
--- NOTE | 2020-01-17 16:04 | PCM.PN.ID ---
Patient Problems: Active and Suspected Problems (Last Reviewed 12/16/19 @ 21:[address] Jese Strauss, DO) Cellulitis of left lower extremity (Acute) Syncope (Acute) Closed left ankle fracture (Acute) Debility (Acute) Fall (Acute) Subjective: Feeling ok, ankle pain stable, no fever. - Physical Exam Vitals/I&O's: Vital Signs Temp Pulse Resp BP Pulse Ox 99.0 F 72 18 135/80 H 97 01/17/20 13:43 01/17/20 13:43 01/17/20 13:43 01/17/20 13:43 01/17/20 13:43 Oxygen Flow Rate (L/min) 3 Oxygen Delivery Method Room Air Weight: 115.269 kg Body Mass Index (BMI) 44.2 Finger Stick Blood Glucose 422 Intake and Output for Last 24 Hours 01/15/20 01/16/20 01/17/20 23:59 23:59 23:59 Intake Total 1455 / 1455 2050 / 2050 1020 / 1020 Output Total 300 / 300 Balance 1455 / 1455 1750 / 1750 1020 / 1020 General: Alert, Cooperative, No apparent distress Lungs: Clear to auscultation, Normal air movement Cardiovascular: Regular rate, Regular Rhythm Abdomen: Soft, Non Tender, Non-Distended Skin: Ulcer/ Wound - reviewed photo Laboratory Results 01/16/20 16:08: POC Glucose 105 01/16/20 20:48: Vancomycin Trough 11.6 01/16/20 20:58: POC Glucose 171 H 01/17/20 06:07: POC Glucose 129 H 01/17/20 10:43: POC Glucose 165 H Current Medications Albuterol Sulfate (Albuterol Sulfate Hfa 6.7 Gm Inhaler (200 Puffs)) 2 puff IH Q6H PRN PRN PRN Reason: SOB &/or Wheezing Amlodipine Besylate (Amlodipine 10 Mg Tablet) 10 mg PO DAILY [facility] Last Admin: 01/17/20 05:54 Dose: 10 mg Documented by: Apixaban (Apixaban 5 Mg Tablet) 5 mg PO BID [facility] Last Admin: 01/17/20 05:55 Dose: 5 mg Documented by: Atorvastatin Calcium (Atorvastatin Calcium 80 Mg Tablet) 80 mg PO QHS [facility] Last Admin: 01/16/20 20:56 Dose: 80 mg Documented by: Baclofen (Baclofen 10 Mg Tablet) 10 mg PO TID [facility] Last Admin: 01/17/20 13:16 Dose: 10 mg Documented by: Buspirone HCl (Buspirone 15 Mg Tablet) 30 mg PO BID [facility] Last Admin: 01/17/20 05:55 Dose: 30 mg Documented by: Calamine/Phenol (Menthol/Lanolin/Calamine/Znox 113 Gm Tube) 1 applic TOPICAL BID [facility]; Protocol Last Admin: 01/17/20 05:56 Dose: 1 applicatio Documented by: Furosemide (Furosemide 20 Mg Tablet) 20 mg PO DAILY [facility] Last Admin: 01/17/20 05:55 Dose: 20 mg Documented by: Heparin Sodium (Beef Lung) (Heparin Pf Lock 10 Units/Ml 50 Units/5 Ml Syringe) 50 units IV UD PRN PRN Reason: PICC Line Heparin Flush Hydromorphone HCl (Hydromorphone 2 Mg Tablet) 2 mg PO Q3H PRN PRN PRN Reason: Pain Score 6-10 Last Admin: 01/17/20 15:27 Dose: 2 mg Documented by: Vancomycin IV Pharmacy to Dose (1 ea/ Sodium Chloride) 500 mls @ 250 mls/hr IV X1 PRN; Protocol PRN Reason: Rx to Dose Vancomycin HCl (Vancomycin) 1,000 mg in 200 mls @ 200 mls/hr IV Q12H [facility] Last Infusion: 01/17/20 10:10 Dose: Infused Documented by: Insulin Glargine (Insulin Glargine 100 Units/Ml Pen) 40 units SC BID [facility] Last Admin: 01/17/20 06:08 Dose: 40 u Documented by: Insulin Human Lispro (Insulin Lispro 100 Unit/Ml Insuln.Pen) 5 unit SC TIDAC [facility] Last Admin: 01/17/20 12:00 Dose: Not Given Documented by: Lactic Acid (Ammonium Lactate 225 Gm Bottle) 1 applic TOPICAL DAILY [facility]; Protocol Last Admin: 01/17/20 05:57 Dose: 1 applicatio Documented by: Lactobacillus Acidophilus (Lactobacillus Acidophilus) 2 tablet PO BID [facility] Last Admin: 01/17/20 05:54 Dose: 2 tablet Documented by: Lisinopril (Lisinopril 20 Mg Tablet) 20 mg PO HS [facility] Last Admin: 01/16/20 20:57 Dose: 20 mg Documented by: Metoprolol Tartrate (Metoprolol Tartrate 50 Mg Tablet) 50 mg PO DAILY [facility] Last Admin: 01/17/20 05:55 Dose: 50 mg Documented by: Mirabegron (Mirabegron 25 Mg Tab.Er.24h) 25 mg PO DAILY [facility] Last Admin: 01/17/20 05:55 Dose: 25 mg Documented by: Montelukast Sodium (Montelukast 10 Mg Tablet) 10 mg PO HS [facility] Last Admin: 01/16/20 20:56 Dose: 10 mg Documented by: Nicotine (Nicotine 21 Mg Patch) 21 mg TRANSDERM. DAILY [facility] Last Admin: 01/17/20 05:53 Dose: 21 mg Documented by: Nitroglycerin (Nitroglycerin (Inpatient Use) 0.4 Mg Tab.Subl) 0.4 mg SUBLINGUAL Q5M PRN PRN Reason: CARDIAC/CHEST PAIN Nystatin (Nystatin Powder 15gm Bottle) 1 applic TOPICAL BID [facility]; Protocol Last Admin: 01/17/20 05:58 Dose: 1 applicatio Documented by: Potassium Chloride (Potassium Chloride 10 Meq Tablet) 10 meq PO DAILYCM [facility] Last Admin: 01/17/20 08:49 Dose: 10 meq Documented by: Pregabalin (Pregabalin 75 Mg Capsule) 75 mg PO TID [facility] Last Admin: 01/17/20 13:16 Dose: 75 mg Documented by: Promethazine HCl (Promethazine 25 Mg Tablet) 12.5 mg PO Q6H PRN PRN PRN Reason: NAUSEA/VOMITING Last Admin: 01/17/20 08:48 Dose: 12.5 mg Documented by: Risperidone (Risperidone 1 Mg Tablet) 4 mg PO QHS [facility] Last Admin: 01/16/20 20:56 Dose: 4 mg Documented by: Fluticasone/Salmeterol (Fluticasone/Salmeterol 232-14 Inhaler) 2 puff IH Q12 [facility] Last Admin: 01/17/20 05:56 Dose: 2 puff Documented by: Sodium Chloride (0.9% Normal Saline 250 Ml Iv.Soln.) 250 ml IV BID PRN PRN PRN Reason: SALINE FLUSH Last Admin: 01/15/20 08:56 Dose: 250 ml Documented by: Sodium Chloride (0.9% Saline Lock 10 Ml Syringe) 10 - 40 ml IV UD PRN PRN Reason: SALINE FLUSH Last Admin: 01/17/20 10:08 Dose: 20 ml Documented by: Sodium Chloride (0.9% Saline Lock 10 Ml Syringe) 10 - 40 ml IV UD PRN PRN Reason: Open End PICC Flush Sodium Chloride (0.9 % Nacl (Sterile) Posiflush 10 Ml) 10 - 40 ml IV UD PRN PRN Reason: Port access or dressing change Sodium Hypochlorite (Dakin's Brittany Half Strength (=0.25%)) 1 applic TOPICAL DAILY@1000 [facility]; Protocol Last Admin: 01/17/20 11:58 Dose: 1 applicatio Documented by: Sucralfate (Sucralfate 1 Gm Tablet) 1 gm PO 1HR_ACHS [facility] Last Admin: 01/17/20 11:00 Dose: 1 gm Documented by: Tizanidine HCl (Tizanidine Hcl 2 Mg Tablet) 6 mg PO Q8H PRN PRN PRN Reason: SPASMS Tramadol HCl (Tramadol 50 Mg Tablet) 50 mg PO Q6H PRN PRN PRN Reason: Pain Score 1-5 Last Admin: 01/17/20 10:49 Dose: 50 mg Documented by: Trazodone HCl (Trazodone 50 Mg Tablet) 200 mg PO QHS [facility] Last Admin: 01/16/20 20:54 Dose: 200 mg Documented by: Umeclidinium [place] (Umeclidinium [place] Inhaler) 2 puff IH DAILY [facility] Last Admin: 01/17/20 05:58 Dose: 2 puff Documented by: Medical Necessity - Tobacco Use Smoking Status: Current every day smoker Tobacco Use: Cigarettes Route of nutrition/ use of supplements: [] Nutritional Intake: [] IV Site: [] Snider Catheter: [] - Assessment/Plan Antibiotics: [] Assessment/Plan: [] Active and Suspected Problems (Last Reviewed 12/16/19 @ 21:[address] Jese Strauss, DO) Syncope (Acute) Closed left ankle fracture (Acute) Debility (Acute) Fall (Acute) MRSE x2 LLE cellulitis s/p ORIF for ankle fracture 12/23/19. Hard to known how deep this infection goes. Does not really have any oral options for abx, will continue vanc. Has h/o cdiff. Plan on continuing vanc through weekend, then may be able to stop and monitor for any sign of recurrence. Will follow
[2020-01-17 16:46] LABS: Bedside Glucose 99 mg/dL (70-110)
--- NOTE | 2020-01-17 17:42 | NURSING ---
DR MELTON NOTIFIED, PT ASKING FOR INCREASE IN PAIN MEDS. DR MELTON STATES PT IS MAXED OUT
--- NOTE | 2020-01-17 18:11 | NURSING ---
pt refused evening insulins,powder,ray.
[2020-01-17] MEDS: RisperiDONE 1 MG Tablet 4 MG PO (19:46)
[2020-01-17] MEDS: traZODone 50 MG Tablet 200 MG PO (19:47)
[2020-01-17] MEDS: Atorvastatin Calcium 80 MG Tablet PO (19:47)
[2020-01-17] MEDS: Montelukast 10 MG Tablet PO (19:49)
[2020-01-17] MEDS: Lisinopril 20 MG Tablet PO (19:50)
[2020-01-17 22:10] LABS: Bedside Glucose 236 mg/dL (70-110)
[2020-01-18 05:42] VITALS: BP 146/80; PULSE 77; RESP 18; TEMP 36.1; O2SAT 97
[2020-01-18] MEDS: Pregabalin 75 MG Capsule PO ×3 (05:44→21:31)
[2020-01-18] MEDS: Fluticasone/Salmeterol 232-14 Inhaler 2 PUFF IH ×2 (05:44→17:05)
[2020-01-18] MEDS: HYDROmorphone 2 MG TABLET PO ×4 (05:44→21:31)
[2020-01-18] MEDS: Sucralfate 1 GM Tablet PO ×4 (05:45→21:31)
[2020-01-18] MEDS: APIXABAN 5 MG TABLET PO ×2 (05:46→17:02)
[2020-01-18] MEDS: Baclofen 10 MG Tablet PO ×3 (05:46→21:30)
[2020-01-18] MEDS: Furosemide 20 MG Tablet PO (05:46)
[2020-01-18 05:47] VITALS: BP 146/80; PULSE 77
[2020-01-18] MEDS: Metoprolol Tartrate 50 MG Tablet PO (05:47)
[2020-01-18] MEDS: amLODIPine 10 MG Tablet PO (05:48)
[2020-01-18] MEDS: Mirabegron 25 MG TAB.ER.24H PO (05:49)
[2020-01-18] MEDS: Nystatin Powder 15gm Bottle 1 APPLIC TOPICAL ×2 (05:53→17:02)
[2020-01-18] MEDS: Menthol/Lanolin/Calamine/Znox 113 GM Tube 1 APPLIC TOPICAL ×2 (05:54→17:02)
[2020-01-18] MEDS: Umeclidinium Bromide Inhaler 2 PUFF IH (05:54)
[2020-01-18 06:46] LABS: Bedside Glucose 130 mg/dL (70-110)
[2020-01-18] MEDS: traMADol 50 MG Tablet PO ×2 (08:07→17:15)
[2020-01-18] MEDS: Vancomycin IV 1,000 MG/200 ML BAG 200 MG IV ×2 (10:03→21:34)
[2020-01-18 11:16] LABS: Bedside Glucose 161 mg/dL (70-110)
[2020-01-18] MEDS: Insulin Lispro 100 UNIT/ML INSULN.PEN SC ×2 (14:13→18:18)
[2020-01-18] MEDS: DAKIN'S SOL HALF STRENGTH (=0.25%) 1 APPLIC TOPICAL (15:03)
[2020-01-18] MEDS: Ammonium Lactate 225 gm Bottle 1 APPLIC TOPICAL (15:04)
[2020-01-18 15:57] VITALS: PULSE 68; RESP 16; O2SAT 91
[2020-01-18 16:16] VITALS: BP 138/82; PULSE 68; RESP 16; TEMP 36.5; O2SAT 91
[2020-01-18 16:25] LABS: Bedside Glucose 105 mg/dL (70-110)
[2020-01-18] MEDS: busPIRone 15 MG TABLET 30 MG PO (17:01)
[2020-01-18 21:26] LABS: Bedside Glucose 119 mg/dL (70-110)
[2020-01-18] MEDS: Lisinopril 20 MG Tablet PO (21:30)
[2020-01-18] MEDS: RisperiDONE 1 MG Tablet 4 MG PO (21:30)
[2020-01-18] MEDS: Montelukast 10 MG Tablet PO (21:30)
[2020-01-18] MEDS: Atorvastatin Calcium 80 MG Tablet PO (21:30)
[2020-01-18] MEDS: traZODone 50 MG Tablet 200 MG PO (21:31)
[2020-01-18] MEDS: 0.9% Saline Lock 10 ML Syringe IV (21:33)
[2020-01-19] MEDS: HYDROmorphone 2 MG TABLET PO ×6 (00:43→22:50)
[2020-01-19 05:00] VITALS: BP 130/63; PULSE 72; RESP 18; TEMP 37.1; O2SAT 95
[2020-01-19 06:07] VITALS: PULSE 72
[2020-01-19] MEDS: Metoprolol Tartrate 50 MG Tablet PO (06:07)
[2020-01-19] MEDS: Sucralfate 1 GM Tablet PO ×4 (06:07→20:34)
[2020-01-19] MEDS: APIXABAN 5 MG TABLET PO ×2 (06:07→17:52)
[2020-01-19] MEDS: Fluticasone/Salmeterol 232-14 Inhaler 2 PUFF IH ×2 (06:07→17:51)
[2020-01-19] MEDS: busPIRone 15 MG TABLET 30 MG PO ×2 (06:08→17:52)
[2020-01-19] MEDS: Furosemide 20 MG Tablet PO (06:08)
[2020-01-19] MEDS: Mirabegron 25 MG TAB.ER.24H PO (06:08)
[2020-01-19] MEDS: amLODIPine 10 MG Tablet PO (06:08)
[2020-01-19] MEDS: Nystatin Powder 15gm Bottle 1 APPLIC TOPICAL ×2 (06:09→17:50)
[2020-01-19] MEDS: Pregabalin 75 MG Capsule PO ×3 (06:09→20:33)
[2020-01-19] MEDS: Baclofen 10 MG Tablet PO ×3 (06:09→20:34)
[2020-01-19] MEDS: Menthol/Lanolin/Calamine/Znox 113 GM Tube 1 APPLIC TOPICAL ×2 (06:10→17:51)
[2020-01-19 06:26] LABS: Bedside Glucose 120 mg/dL (70-110)
[2020-01-19] MEDS: Umeclidinium Bromide Inhaler 2 PUFF IH (06:47)
[2020-01-19 06:55] VITALS: O2SAT 96
[2020-01-19] MEDS: Insulin Lispro 100 UNIT/ML INSULN.PEN SC ×3 (07:39→17:46)
[2020-01-19] MEDS: Vancomycin IV 1,000 MG/200 ML BAG 200 MG IV ×2 (09:12→20:36)
[2020-01-19] MEDS: traMADol 50 MG Tablet PO ×2 (11:01→18:01)
[2020-01-19 11:20] LABS: Bedside Glucose 179 mg/dL (70-110)
[2020-01-19 15:00] VITALS: BP 122/60; PULSE 64; RESP 16; TEMP 36.6; O2SAT 96
[2020-01-19 16:25] LABS: Bedside Glucose 152 mg/dL (70-110)
[2020-01-19] MEDS: Ammonium Lactate 225 gm Bottle 1 APPLIC TOPICAL (20:31)
[2020-01-19] MEDS: DAKIN'S SOL HALF STRENGTH (=0.25%) 1 APPLIC TOPICAL (20:32)
[2020-01-19] MEDS: RisperiDONE 1 MG Tablet 4 MG PO (20:33)
[2020-01-19] MEDS: traZODone 50 MG Tablet 200 MG PO (20:33)
[2020-01-19] MEDS: Atorvastatin Calcium 80 MG Tablet PO (20:33)
[2020-01-19] MEDS: Lisinopril 20 MG Tablet PO (20:33)
[2020-01-19] MEDS: 0.9% Saline Lock 10 ML Syringe IV (20:34)
[2020-01-19] MEDS: Montelukast 10 MG Tablet PO (20:34)
[2020-01-19 21:15] LABS: Bedside Glucose 229 mg/dL (70-110)
[2020-01-19] MEDS: tiZANidine HCl 2 MG Tablet 6 MG PO (22:42)
[2020-01-20 06:21] VITALS: BP 134/66; PULSE 69; RESP 18; TEMP 36.8; O2SAT 97
[2020-01-20] MEDS: Baclofen 10 MG Tablet PO ×3 (06:23→21:13)
[2020-01-20] MEDS: HYDROmorphone 2 MG TABLET PO ×5 (06:23→22:07)
[2020-01-20] MEDS: Sucralfate 1 GM Tablet PO ×4 (06:23→21:13)
[2020-01-20] MEDS: Mirabegron 25 MG TAB.ER.24H PO (06:23)
[2020-01-20] MEDS: Pregabalin 75 MG Capsule PO ×3 (06:23→21:12)
[2020-01-20 06:24] VITALS: PULSE 69
[2020-01-20] MEDS: Furosemide 20 MG Tablet PO (06:24)
[2020-01-20] MEDS: amLODIPine 10 MG Tablet PO (06:24)
[2020-01-20] MEDS: APIXABAN 5 MG TABLET PO ×2 (06:24→17:53)
[2020-01-20] MEDS: Metoprolol Tartrate 50 MG Tablet PO (06:24)
[2020-01-20] MEDS: busPIRone 15 MG TABLET 30 MG PO ×2 (06:24→17:52)
[2020-01-20] MEDS: Nystatin Powder 15gm Bottle 1 APPLIC TOPICAL ×2 (06:24→17:55)
[2020-01-20 06:25] LABS: Bedside Glucose 127 mg/dL (70-110)
[2020-01-20] MEDS: Menthol/Lanolin/Calamine/Znox 113 GM Tube 1 APPLIC TOPICAL ×2 (06:25→17:52)
[2020-01-20] MEDS: Umeclidinium Bromide Inhaler 2 PUFF IH (06:25)
[2020-01-20] MEDS: Fluticasone/Salmeterol 232-14 Inhaler 2 PUFF IH ×2 (06:25→17:53)
[2020-01-20 06:50] VITALS: O2SAT 96
[2020-01-20] MEDS: Insulin Lispro 100 UNIT/ML INSULN.PEN SC ×3 (08:27→17:52)
[2020-01-20] MEDS: traMADol 50 MG Tablet PO ×2 (08:28→15:33)
--- NOTE | 2020-01-20 09:51 | NURSING ---
wound photo: left medial ankle
--- NOTE | 2020-01-20 09:53 | NURSING ---
wound photo: left lateral ankle
[2020-01-20] MEDS: ALPRAZolam 0.5 MG Tablet PO ×2 (09:55→18:12)
[2020-01-20] MEDS: Vancomycin IV 1,000 MG/200 ML BAG 200 MG IV ×2 (09:56→21:09)
[2020-01-20] MEDS: Ammonium Lactate 225 gm Bottle 1 APPLIC TOPICAL (10:04)
[2020-01-20] MEDS: DAKIN'S SOL HALF STRENGTH (=0.25%) 1 APPLIC TOPICAL (10:05)
--- NOTE | 2020-01-20 10:13 | NURSING ---
Dr angeles updated by leveler that pt requesting stool softeners & xanax. new orders entered. pt still would like to speak with DR angeles later today. will make him aware.
[2020-01-20 10:40] LABS: Bedside Glucose 222 mg/dL (70-110)
[2020-01-20 10:46] VITALS: PULSE 59; RESP 18; O2SAT 97
--- NOTE | 2020-01-20 12:24 | PN_ITS ---
Patient Problems: Active and Suspected Problems (Last Reviewed 12/16/19 @ 21:[address] Jese Strauss, DO) Cellulitis of left lower extremity (Acute) Syncope (Acute) Closed left ankle fracture (Acute) Debility (Acute) Fall (Acute) Subjective: Patient seen and examined bedside. No pain. No new complaints - Physical Exam Vitals/I&O's: Vital Signs Temp Pulse Resp BP Pulse Ox 98.2 F 59 L 18 134/66 H 97 01/20/20 06:21 01/20/20 10:46 01/20/20 10:46 01/20/20 06:21 01/20/20 10:46 Oxygen Flow Rate (L/min) 3 Oxygen Delivery Method Nasal Cannula Weight: 115.269 kg Body Mass Index (BMI) 44.2 Finger Stick Blood Glucose 422 Intake and Output for Last 24 Hours 01/18/20 01/19/20 01/20/20 23:59 23:59 23:59 Intake Total 1732 / 1732 1900 / 1900 800 / 800 Output Total 400 / 400 Balance 1332 / 1332 1900 / 1900 800 / 800 General: Alert, Oriented x3 HEENT: Atraumatic Extremities: No clubbing, No cyanosis, Diminished Peripheral Pulses, Edema, Tenderness - achilles area Skin: Ulcer/ Wound - along lateral incision with black eschar, mild surrounding erythema which has improved, serous drainage. There is skin discontinuity with granular/fibrotic base at the central & distal one fourth of the wound without exposed hardware, proximal aspect some black eschar, Incision - Medial incision with sutures previously removed is coapted well aligned without drainage. Some dry skin noted. Lateral incision has dehisced in multiple locations Musculoskeletal: Muscle Wasting, - - Pain with wound and surgical site palpation. Active range of motion digits x5 left. Negative Huey and De Souza sign bilateral. Compartments of left lower extremity remain soft to palpate Neurological: Sensory exam intact to light touch and pain Psych/Mental Status: Normal Affect, Appropriate, Anxious Laboratory Results 01/19/20 16:22: POC Glucose 152 H 01/19/20 20:56: POC Glucose 229 H 01/20/20 06:06: POC Glucose 127 H 01/20/20 10:35: POC Glucose 222 H Current Medications Albuterol Sulfate (Albuterol Sulfate Hfa 6.7 Gm Inhaler (200 Puffs)) 2 puff IH Q6H PRN PRN PRN Reason: SOB &/or Wheezing Alprazolam (Alprazolam 0.5 Mg Tablet) 0.5 mg PO TID PRN PRN PRN Reason: ANXIETY Last Admin: 01/20/20 09:55 Dose: 0.5 mg Documented by: Amlodipine Besylate (Amlodipine 10 Mg Tablet) 10 mg PO DAILY [facility] Last Admin: 01/20/20 06:24 Dose: 10 mg Documented by: Apixaban (Apixaban 5 Mg Tablet) 5 mg PO BID [facility] Last Admin: 01/20/20 06:24 Dose: 5 mg Documented by: Atorvastatin Calcium (Atorvastatin Calcium 80 Mg Tablet) 80 mg PO QHS [facility] Last Admin: 01/19/20 20:33 Dose: 80 mg Documented by: Baclofen (Baclofen 10 Mg Tablet) 10 mg PO TID [facility] Last Admin: 01/20/20 06:23 Dose: 10 mg Documented by: Buspirone HCl (Buspirone 15 Mg Tablet) 30 mg PO BID [facility] Last Admin: 01/20/20 06:24 Dose: 30 mg Documented by: Calamine/Phenol (Menthol/Lanolin/Calamine/Znox 113 Gm Tube) 1 applic TOPICAL BID [facility]; Protocol Last Admin: 01/20/20 06:25 Dose: 1 applicatio Documented by: Furosemide (Furosemide 20 Mg Tablet) 20 mg PO DAILY [facility] Last Admin: 01/20/20 06:24 Dose: 20 mg Documented by: Heparin Sodium (Beef Lung) (Heparin Pf Lock 10 Units/Ml 50 Units/5 Ml Syringe) 50 units IV UD PRN PRN Reason: PICC Line Heparin Flush Hydromorphone HCl (Hydromorphone 2 Mg Tablet) 2 mg PO Q3H PRN PRN PRN Reason: Pain Score 6-10 Last Admin: 01/20/20 09:40 Dose: 2 mg Documented by: Vancomycin IV Pharmacy to Dose (1 ea/ Sodium Chloride) 500 mls @ 250 mls/hr IV X1 PRN; Protocol PRN Reason: Rx to Dose Stop: 01/21/20 12:00 Vancomycin HCl (Vancomycin) 1,000 mg in 200 mls @ 200 mls/hr IV Q12H [facility] Stop: 01/21/20 12:01 Last Infusion: 01/20/20 11:23 Dose: Infused Documented by: Insulin Glargine (Insulin Glargine 100 Units/Ml Pen) 40 units SC BID [facility] Last Admin: 01/20/20 06:33 Dose: Not Given Documented by: Insulin Human Lispro (Insulin Lispro 100 Unit/Ml Insuln.Pen) 5 unit SC TIDAC [facility] Last Admin: 01/20/20 11:40 Dose: 5 units Documented by: Lactic Acid (Ammonium Lactate 225 Gm Bottle) 1 applic TOPICAL DAILY [facility]; Protocol Last Admin: 01/20/20 10:04 Dose: 1 applicatio Documented by: Lactobacillus Acidophilus (Lactobacillus Acidophilus) 2 tablet PO BID [facility] Last Admin: 01/20/20 06:23 Dose: 2 tablet Documented by: Lisinopril (Lisinopril 20 Mg Tablet) 20 mg PO [facility] Last Admin: 01/19/20 20:33 Dose: 20 mg Documented by: Metoprolol Tartrate (Metoprolol Tartrate 50 Mg Tablet) 50 mg PO DAILY [facility] Last Admin: 01/20/20 06:24 Dose: 50 mg Documented by: Mirabegron (Mirabegron 25 Mg Tab.Er.24h) 25 mg PO DAILY [facility] Last Admin: 01/20/20 06:23 Dose: 25 mg Documented by: Montelukast Sodium (Montelukast 10 Mg Tablet) 10 mg PO [facility] Last Admin: 01/19/20 20:34 Dose: 10 mg Documented by: Nicotine (Nicotine 21 Mg Patch) 21 mg TRANSDERM. DAILY [facility] Last Admin: 01/20/20 06:24 Dose: 21 mg Documented by: Nitroglycerin (Nitroglycerin (Inpatient Use) 0.4 Mg Tab.Subl) 0.4 mg SUBLINGUAL Q5M PRN PRN Reason: CARDIAC/CHEST PAIN Nystatin (Nystatin Powder 15gm Bottle) 1 applic TOPICAL BID [facility]; Protocol Last Admin: 01/20/20 06:24 Dose: 1 applicatio Documented by: Polyethylene Glycol (Polyethylene Glycol 3350 17 Gm Packet) 17 gm PO BID [facility] Potassium Chloride ([facility] 10 M[facility]) [facility] Last Admin: 01/20/20 08:28 Dose: 10 meq Documented by: Pregabalin (Pregabalin 75 Mg Capsule) 75 mg PO TID [facility] Last Admin: 01/20/20 06:23 Dose: 75 mg Documented by: Promethazine HCl (Promethazine 25 Mg Tablet) 12.5 mg PO Q6H PRN PRN PRN Reason: NAUSEA/VOMITING Last Admin: 01/17/20 08:48 Dose: 12.5 mg Documented by: Risperidone (Risperidone 1 Mg Tablet) 4 mg PO QHS [facility] Last Admin: 01/19/20 20:33 Dose: 4 mg Documented by: Fluticasone/Salmeterol (Fluticasone/Salmeterol 232-14 Inhaler) 2 puff IH Q12 [facility] Last Admin: 01/20/20 06:25 Dose: 2 puff Documented by: Senna/Docusate Sodium (Senna/Docusate Sodium 1 Tablet) 2 tablet PO BID [facility] Sodium Chloride (0.9% Normal Saline 250 Ml Iv.Soln.) 250 ml IV BID PRN PRN PRN Reason: SALINE FLUSH Last Admin: 01/15/20 08:56 Dose: 250 ml Documented by: Sodium Chloride (0.9% Saline Lock 10 Ml Syringe) 10 - 40 ml IV UD PRN PRN Reason: SALINE FLUSH Last Admin: 01/19/20 20:34 Dose: 20 ml Documented by: Sodium Chloride (0.9% Saline Lock 10 Ml Syringe) 10 - 40 ml IV UD PRN PRN Reason: Open End PICC Flush Sodium Chloride (0.9 % Nacl (Sterile) Posiflush 10 Ml) 10 - 40 ml IV UD PRN PRN Reason: Port access or dressing change Sodium Hypochlorite (Dakin's Brittany Half Strength (=0.25%)) 1 applic TOPICAL DAILY@1000 [facility]; Protocol Last Admin: 01/20/20 10:05 Dose: 1 applicatio Documented by: Sucralfate (Sucralfate 1 Gm Tablet) 1 gm PO 1HR_ACHS [facility] Last Admin: 01/20/20 11:39 Dose: 1 gm Documented by: Tizanidine HCl (Tizanidine Hcl 2 Mg Tablet) 6 mg PO Q8H PRN PRN PRN Reason: SPASMS Last Admin: 01/19/20 22:42 Dose: 6 mg Documented by: Tramadol HCl (Tramadol 50 Mg Tablet) 50 mg PO Q6H PRN PRN PRN Reason: Pain Score 1-5 Last Admin: 01/20/20 08:28 Dose: 50 mg Documented by: Trazodone HCl (Trazodone 50 Mg Tablet) 200 mg PO QHS [facility] Last Admin: 01/19/20 20:33 Dose: 200 mg Documented by: Umeclidinium [place] (Umeclidinium [place] Inhaler) 2 puff IH DAILY [facility] Last Admin: 01/20/20 06:25 Dose: 2 puff Documented by: Medical Necessity - Tobacco Use Smoking Status: Current every day smoker Tobacco Use: Cigarettes Assessment/Plan All Active Problems (Last Reviewed 12/16/19 @ 21:[address] Jese Strauss, DO) Cellulitis of left lower extremity (Acute) Difficulty in walking, not elsewhere classified (Acute) Syncope (Acute) Closed left ankle fracture (Acute) Debility (Acute) Fall (Acute) Diarrhea (Resolved) Hypokalemia (Resolved) Left trimalleolar ankle fracture/Charcot neuroarthropathy s/p ORIF on 12/23/2019 Lateral ankle ulceration down to subcutaneous tissue with cellulitis resolving Uncontrolled Diabetes Tobacco use Multiple comorbidities vascular impairment I reviewed and discussed her case. She is afebrile and vitals are stable. Labs reviewed without gross abnormalities earlier this week. Reviewed culture results, growing staph epi multiple resistances. The most appropriate antibiotic choice at this time is vancomycin, infectious disease is on consult. She is starting to improve clinically and I recommend continuation. There is no purulence noted today. There is mild erythema, no drainage. Some eschar noted. To change dressing daily with aquacel Ag, then gauze, kerlix and lukas and well padded below knee splint. To moisturize adjacent skin with Lac-Hydrin. Surgical site was evaluated with a new dressing was applied this morning. Strict nonweightbearing left foot/ankle, keep foot elevated. Keep left heel offloaded with pillow. Keep lateral ankle offloaded at all times - discussed with patient on the importance of this. Consult placed for Dr Salgado in vascular surgery to assess healing potential Vascular studies show Right TBI 0.94, Left TBI 0.67. Right and left DP have triphasic waveforms. 20-49% stenosis to left LE arteries Continue with pain management for post operative pain control. Vitamin D lab is low - continue vitamin D supplementation, 2000 units daily. Do not recommend discharge at this time. Would like vascular input first. Patient could also benefit from a few more days of IV antibiotics given some erythema remains Social work consulted for safe discharge planning. Medical management and DVT prophylaxis per Dr. Monae is appreciated. Podiatry will continue to follow biweekly while in the transitional care unit. Please do not hesitate to call if you have any questions.
[2020-01-20 13:04] VITALS: BP 117/57; PULSE 62; RESP 16; TEMP 36; O2SAT 99
--- NOTE | 2020-01-20 13:49 | PN.ID_ITS ---
Patient Problems: Active and Suspected Problems (Last Reviewed 12/16/19 @ 21:[address] Jese Strauss, DO) Cellulitis of left lower extremity (Acute) Syncope (Acute) Closed left ankle fracture (Acute) Debility (Acute) Fall (Acute) Subjective: Feeling better, no fever, still some ankle soreness. - Physical Exam Vitals/I&O's: Vital Signs Temp Pulse Resp BP Pulse Ox 96.8 F L 62 16 117/57 L 99 01/20/20 13:04 01/20/20 13:04 01/20/20 13:04 01/20/20 13:04 01/20/20 13:04 Oxygen Flow Rate (L/min) 3 Oxygen Delivery Method Nasal Cannula Weight: 115.269 kg Body Mass Index (BMI) 44.2 Finger Stick Blood Glucose 422 Intake and Output for Last 24 Hours 01/18/20 01/19/20 01/20/20 23:59 23:59 23:59 Intake Total 1732 / 1732 1900 / 1900 1040 / 1040 Output Total 400 / 400 Balance 1332 / 1332 1900 / 1900 1040 / 1040 General: Alert, Cooperative, No apparent distress Lungs: Clear to auscultation, Normal air movement Cardiovascular: Regular rate, Regular Rhythm Abdomen: Soft, Non Tender, Non-Distended Skin: Ulcer/ Wound - reviewed photo, redness much improved on L lateral ankle Laboratory Results 01/19/20 16:22: POC Glucose 152 H 01/19/20 20:56: POC Glucose 229 H 01/20/20 06:06: POC Glucose 127 H 01/20/20 10:35: POC Glucose 222 H Current Medications Albuterol Sulfate (Albuterol Sulfate Hfa 6.7 Gm Inhaler (200 Puffs)) 2 puff IH Q6H PRN PRN PRN Reason: SOB &/or Wheezing Alprazolam (Alprazolam 0.5 Mg Tablet) 0.5 mg PO TID PRN PRN PRN Reason: ANXIETY Last Admin: 01/20/20 09:55 Dose: 0.5 mg Documented by: Amlodipine Besylate (Amlodipine 10 Mg Tablet) 10 mg PO DAILY [facility] Last Admin: 01/20/20 06:24 Dose: 10 mg Documented by: Apixaban (Apixaban 5 Mg Tablet) 5 mg PO BID [facility] Last Admin: 01/20/20 06:24 Dose: 5 mg Documented by: Atorvastatin Calcium (Atorvastatin Calcium 80 Mg Tablet) 80 mg PO QHS [facility] Last Admin: 01/19/20 20:33 Dose: 80 mg Documented by: Baclofen (Baclofen 10 Mg Tablet) 10 mg PO TID [facility] Last Admin: 01/20/20 13:19 Dose: 10 mg Documented by: Buspirone HCl (Buspirone 15 Mg Tablet) 30 mg PO BID [facility] Last Admin: 01/20/20 06:24 Dose: 30 mg Documented by: Calamine/Phenol (Menthol/Lanolin/Calamine/Znox 113 Gm Tube) 1 applic TOPICAL BID [facility]; Protocol Last Admin: 01/20/20 06:25 Dose: 1 applicatio Documented by: Furosemide (Furosemide 20 Mg Tablet) 20 mg PO DAILY [facility] Last Admin: 01/20/20 06:24 Dose: 20 mg Documented by: Heparin Sodium (Beef Lung) (Heparin Pf Lock 10 Units/Ml 50 Units/5 Ml Syringe) 50 units IV UD PRN PRN Reason: PICC Line Heparin Flush Hydromorphone HCl (Hydromorphone 2 Mg Tablet) 2 mg PO Q3H PRN PRN PRN Reason: Pain Score 6-10 Last Admin: 01/20/20 13:22 Dose: 2 mg Documented by: Vancomycin IV Pharmacy to Dose (1 ea/ Sodium Chloride) 500 mls @ 250 mls/hr IV X1 PRN; Protocol PRN Reason: Rx to Dose Stop: 01/21/20 12:00 Vancomycin HCl (Vancomycin) 1,000 mg in 200 mls @ 200 mls/hr IV Q12H [facility] Stop: 01/21/20 12:01 Last Infusion: 01/20/20 11:23 Dose: Infused Documented by: Insulin Glargine (Insulin Glargine 100 Units/Ml Pen) 40 units SC BID [facility] Last Admin: 01/20/20 06:33 Dose: Not Given Documented by: Insulin Human Lispro (Insulin Lispro 100 Unit/Ml Insuln.Pen) 5 unit SC TIDAC [facility] Last Admin: 01/20/20 11:40 Dose: 5 units Documented by: Lactic Acid (Ammonium Lactate 225 Gm Bottle) 1 applic TOPICAL DAILY [facility]; Protocol Last Admin: 01/20/20 10:04 Dose: 1 applicatio Documented by: Lactobacillus Acidophilus (Lactobacillus Acidophilus) 2 tablet PO BID [facility] Last Admin: 01/20/20 06:23 Dose: 2 tablet Documented by: Lisinopril (Lisinopril 20 Mg Tablet) 20 mg PO [facility] Last Admin: 01/19/20 20:33 Dose: 20 mg Documented by: Metoprolol Tartrate (Metoprolol Tartrate 50 Mg Tablet) 50 mg PO DAILY [facility] Last Admin: 01/20/20 06:24 Dose: 50 mg Documented by: Mirabegron (Mirabegron 25 Mg Tab.Er.24h) 25 mg PO DAILY [facility] Last Admin: 01/20/20 06:23 Dose: 25 mg Documented by: Montelukast Sodium (Montelukast 10 Mg Tablet) 10 mg PO [facility] Last Admin: 01/19/20 20:34 Dose: 10 mg Documented by: Nicotine (Nicotine 21 Mg Patch) 21 mg TRANSDERM. DAILY [facility] Last Admin: 01/20/20 06:24 Dose: 21 mg Documented by: Nitroglycerin (Nitroglycerin (Inpatient Use) 0.4 Mg Tab.Subl) 0.4 mg SUBLINGUAL Q5M PRN PRN Reason: CARDIAC/CHEST PAIN Nystatin (Nystatin Powder 15gm Bottle) 1 applic TOPICAL BID [facility]; Protocol Last Admin: 01/20/20 06:24 Dose: 1 applicatio Documented by: Polyethylene Glycol (Polyethylene Glycol 3350 17 Gm Packet) 17 gm PO BID [facility] Potassium Chloride (Potassium Chloride 10 Meq Tablet) 10 meq PO DAILYCM [facility] Last Admin: 01/20/20 08:28 Dose: 10 meq Documented by: Pregabalin (Pregabalin 75 Mg Capsule) 75 mg PO TID [facility] Last Admin: 01/20/20 13:22 Dose: 75 mg Documented by: Promethazine HCl (Promethazine 25 Mg Tablet) 12.5 mg PO Q6H PRN PRN PRN Reason: NAUSEA/VOMITING Last Admin: 01/17/20 08:48 Dose: 12.5 mg Documented by: Risperidone (Risperidone 1 Mg Tablet) 4 mg PO QHS [facility] Last Admin: 01/19/20 20:33 Dose: 4 mg Documented by: Fluticasone/Salmeterol (Fluticasone/Salmeterol 232-14 Inhaler) 2 puff IH Q12 [facility] Last Admin: 01/20/20 06:25 Dose: 2 puff Documented by: Senna/Docusate Sodium (Senna/Docusate Sodium 1 Tablet) 2 tablet PO BID [facility] Sodium Chloride (0.9% Normal Saline 250 Ml Iv.Soln.) 250 ml IV BID PRN PRN PRN Reason: SALINE FLUSH Last Admin: 01/15/20 08:56 Dose: 250 ml Documented by: Sodium Chloride (0.9% Saline Lock 10 Ml Syringe) 10 - 40 ml IV UD PRN PRN Reason: SALINE FLUSH Last Admin: 01/19/20 20:34 Dose: 20 ml Documented by: Sodium Chloride (0.9% Saline Lock 10 Ml Syringe) 10 - 40 ml IV UD PRN PRN Reason: Open End PICC Flush Sodium Chloride (0.9 % Nacl (Sterile) Posiflush 10 Ml) 10 - 40 ml IV UD PRN PRN Reason: Port access or dressing change Sodium Hypochlorite (Dakin's [place]any Half Strength (=0.25%)) 1 applic TOPICAL DAILY@1000 [facility]; Protocol Last Admin: 01/20/20 10:05 Dose: 1 applicatio Documented by: Sucralfate (Sucralfate 1 Gm Tablet) 1 gm PO 1HR_ACHS [facility] Last Admin: 01/20/20 11:39 Dose: 1 gm Documented by: Tizanidine HCl (Tizanidine Hcl 2 Mg Tablet) 6 mg PO Q8H PRN PRN PRN Reason: SPASMS Last Admin: 01/19/20 22:42 Dose: 6 mg Documented by: Tramadol HCl (Tramadol 50 Mg Tablet) 50 mg PO Q6H PRN PRN PRN Reason: Pain Score 1-5 Last Admin: 01/20/20 08:28 Dose: 50 mg Documented by: Trazodone HCl (Trazodone 50 Mg Tablet) 200 mg PO QHS [facility] Last Admin: 01/19/20 20:33 Dose: 200 mg Documented by: Umeclidinium [place] (Umeclidinium [place] Inhaler) 2 puff IH DAILY [facility] Last Admin: 01/20/20 06:25 Dose: 2 puff Documented by: Medical Necessity - Tobacco Use Smoking Status: Current every day smoker Tobacco Use: Cigarettes Route of nutrition/ use of supplements: [] Nutritional Intake: [] IV Site: [] Snider Catheter: [] - Assessment/Plan Antibiotics: [] Assessment/Plan: [] Active and Suspected Problems (Last Reviewed 12/16/19 @ 21:[address] Jese Strauss, DO) Syncope (Acute) Closed left ankle fracture (Acute) Debility (Acute) Fall (Acute) MRSE x2 LLE cellulitis s/p ORIF for ankle fracture 12/23/19. Hard to known how deep this infection goes. Does not really have any oral options for abx, will continue vanc. Overall much improved, will continue vanc while in TCU, otherwise ok to go home. She is to monitor for any fever, worsening redness/swelling/pain/drainage after discharge. Will follow
--- NOTE | 2020-01-20 15:24 | NURSING ---
Pt called out requesting a prn Xanax. Let pt know she can have it every 8hrs and that she can have it at 1800. Told pt that to help her relax she could try putting on some relaxing music and try and rest. Pt did not want to do that. Pt then stated umm ummm then can I have a Xanx I then restated what I said. She then stated umm umm umm can I have a Ultram. Pt stated her pain level was a 7 and she is not due for a Dilaudid pt had at 1322. Will continue to monitor pt. Call light within reach.
[2020-01-20 16:41] LABS: Bedside Glucose 138 mg/dL (70-110)
[2020-01-20] MEDS: Polyethylene Glycol 3350 17 GM PACKET PO (17:54)
[2020-01-20] MEDS: Senna/Docusate Sodium 1 Tablet 2 TABLET PO (17:55)
--- NOTE | 2020-01-20 17:58 | NURSING ---
Dr Monae spoke with pt regarding fluid restriction, pt requesting it to be dc'd. new order to dc and recheck BMP on 01/22/20
--- NOTE | 2020-01-20 20:13 | PCM.TCUNOT ---
Subjective: Resident seen for regulatory visit. She is lying in bed, finishing dinner. She requests discontinuation of fluid restriction for hyponatremia, I said okay, but will be monitoring her sodium. Vitals/I&O's: Vital Signs Temp Pulse Resp BP Pulse Ox 96.8 F L 62 16 117/57 L 99 01/20/20 13:04 01/20/20 13:04 01/20/20 13:04 01/20/20 13:04 01/20/20 13:04 Oxygen Flow Rate (L/min) 3 Oxygen Delivery Method Nasal Cannula Weight: 115.269 kg Body Mass Index (BMI) 44.2 Finger Stick Blood Glucose 422 Intake and Output for Last 24 Hours 01/18/20 01/19/20 01/20/20 23:59 23:59 23:59 Intake Total 1732 / 1732 1900 / 1900 1260 / 1260 Output Total 400 / 400 Balance 1332 / 1332 1900 / 1900 1260 / 1260 Laboratory Results 01/19/20 20:56: POC Glucose 229 H 01/20/20 06:06: POC Glucose 127 H 01/20/20 10:35: POC Glucose 222 H 01/20/20 16:35: POC Glucose 138 H Past Medical History Past Medical History (Chronic Problems): Chronic Problems (Last Reviewed 12/16/19 @ 21:[address] Jese Strauss, DO) Stage 2 moderate COPD by GOLD classification (Chronic) Acute and chronic respiratory failure with hypoxia (Chronic) Cataract (Chronic) Iron deficiency (Chronic) Iron deficiency anemia following bariatric surgery (Chronic) History of gastric bypass (Chronic) Myocardial infarction (Chronic) H/O heart artery stent (Chronic) Pulmonary emboli (Chronic) Diabetic polyneuropathy (Chronic) Muscle spasm (Chronic) Insomnia (Chronic) Overactive bladder (Chronic) Anxiety (Chronic) Coronary artery disease (Chronic) COPD (chronic obstructive pulmonary disease) (Chronic) Diabetes mellitus (Chronic) HTN (hypertension) (Chronic) Peptic ulcer (Chronic) Chronic neutrophilia (Chronic) Osteoarthritis (Chronic) Morbid obesity (Chronic) Neutrophilic leukocytosis (Chronic) Type 2 diabetes mellitus (Chronic) Schizophrenia (Chronic) Hip osteoarthritis (Chronic) with chronic pain-right hip Iron deficiency anemia due to dietary causes (Chronic) exact cause of iron def anemia unknown-felt likely secondary to past history gastric bypass- although chronic blood loss etiology a possibility (has never had colonoscopy)-further workup including hemoccult stool is recommended Morbid obesity with BMI of 45.0-49.9, adult (Chronic) Pulmonary hypertension (Chronic) Chronic narcotic use (Chronic) Depression (Chronic) Gastroesophageal reflux disease (Chronic) Parathyroid abnormality (Chronic) History of PTCA (Chronic) Vitamin D deficiency (Chronic) Hyperlipidemia (Chronic) Thyroid nodule (Chronic) deemed to be benign. Benign essential hypertension (Chronic) CAD (coronary artery disease) (Chronic) RACHLE (obstructive sleep apnea) (Chronic) 17/13 cm of water Spinal stenosis of lumbar region at multiple levels (Chronic) Tobacco abuse (Chronic) Medical History: Medical History (Last Reviewed 12/16/19 @ 21:[address] Jese Strauss, DO) HTN (hypertension) (Chronic) I10 Peptic ulcer (Chronic) K27.9 Chronic neutrophilia (Chronic) D72.828 Osteoarthritis (Chronic) M19.90 Morbid obesity (Chronic) E66.01 Neutrophilic leukocytosis (Chronic) D72.9 Type 2 diabetes mellitus (Chronic) E11.9 Schizophrenia (Chronic) F20.9 Hip osteoarthritis (Chronic) M16.9 with chronic pain-right hip Iron deficiency anemia due to dietary causes (Chronic) D50.8 exact cause of iron def anemia unknown-felt likely secondary to past history gastric bypass- although chronic blood loss etiology a possibility (has never had colonoscopy)-further workup including hemoccult stool is recommended Morbid obesity with BMI of 45.0-49.9, adult (Chronic) E66.01, Z68.42 Pulmonary hypertension (Chronic) I27.2 Chronic narcotic use (Chronic) F11.90 Depression (Chronic) F32.9 Gastroesophageal reflux disease (Chronic) K21.9 Parathyroid abnormality (Chronic) E21.5 Vitamin D deficiency (Chronic) E55.9 Hyperlipidemia (Chronic) E78.5 Thyroid nodule (Chronic) E04.1 deemed to be benign. Benign essential hypertension (Chronic) I10 CAD (coronary artery disease) (Chronic) I25.10 RACHEL (obstructive sleep apnea) (Chronic) G47.33 17/13 cm of water Spinal stenosis of lumbar region at multiple levels (Chronic) M48.06 Tobacco abuse (Chronic) Z72.0 Bipolar 2 disorder F31.81 History of pulmonary embolism Z86.711 Schizoaffective disorder F25.9 Allergies amoxicillin Allergy (Verified 01/14/20 19:14) Itching erythromycin base Allergy (Verified 01/14/20 19:14) Unknown methadone Allergy (Verified 01/14/20 19:14) Itching metolazone Allergy (Verified 01/14/20 19:14) Unknown Penicillins Allergy (Verified 01/14/20 19:14) Hives Sulfa (Sulfonamide Antibiotics) Allergy (Verified 01/14/20 19:14) Hives acetaminophen [From Percocet] Adverse Reaction (Verified 01/14/20 19:14) Itching clarithromycin [From Biaxin] Adverse Reaction (Verified 01/14/20 19:14) Nausea ibuprofen Adverse Reaction (Verified 01/14/20 19:14) 3 BLEEDING ULCERS 3 BLEEDING ULCERS morphine Adverse Reaction (Verified 01/14/20 19:14) HEADACHE HEADACHE oxycodone [From Percocet] Adverse Reaction (Verified 01/14/20 19:14) Itching Home Medications: Ambulatory Orders Medication Instructions Recorded Atorvastatin Calcium [Lipitor] 80 mg PO QHS 08/22/15 Metoprolol(XL)Succ [Toprol Xl 50 mg PO DAILY 08/22/15 (Beta Trino)] Nitroglycerin 0.4 mg SL PRN PRN 11/08/16 amlodipine 10 mg tablet 10 mg PO DAILY tab 05/02/17 potassium chloride 10 mEq 10 meq PO DAILY #60 tab 06/16/17 tablet,extended release(part/cryst) Pregabalin [Lyrica] 75 mg PO TID 03/08/18 Risperidone 4 mg PO QHS 03/08/18 Tizanidine HCl 6 mg PO TID PRN PRN 03/08/18 traZODone [Desyrel] 200 mg PO QHS 03/08/18 Furosemide [Lasix] 20 mg PO DAILY 11/20/18 Lisinopril 20 mg PO QHS 11/20/18 Mirabegron [Myrbetriq] 25 mg PO DAILY 11/20/18 Apixaban [Eliquis] 5 mg PO BID 05/02/19 Fluticasone/Salmeterol [Advair Hfa 2 puff INHALATION DAILY 05/02/19 230-21 Mcg Inhaler] albuterol sulfate 90 mcg/actuation 2 puff INHALATION Q6H PRN 06/27/19 aerosol inhaler buspirone 30 mg tablet 30 mg PO BID tab 06/27/19 sucralfate 1 gram tablet 1 g PO QACHS 06/27/19 Nystatin [Nystop] 1 applic TP 4X/DAY 08/22/19 proMETHazine tablet [Phenergan 12.5 - 25 mg PO BID PRN PRN 08/22/19 tablet] tiotropium bromide 2.5 2 puff INHALATION DAILY #4 g 09/30/19 mcg/actuation mist for inhalation montelukast 10 mg tablet 10 mg PO QHS #30 tab 10/30/19 albuterol sulfate 2.5 mg INHALATION Q4H PRN #180 ml 12/11/19 Lactobacillus Acidophilus 2 tab PO BID 12/16/19 [Acidophilus] Insulin Glargine [Lantus SoloStar 40 units SC BID 12/18/19 Pen] Nicotine [Nicoderm Cq] 21 mg TRANSDERM. DAILY 12/18/19 Apixaban [Eliquis] 5 mg PO BID tab 01/02/20 HYDROmorphone tablet [Dilaudid] 2 mg PO Q3H PRN PRN 3 Days #18 tab 01/02/20 Hydrocortisone 2.5% Crm [Hytone] 1 applic TOPICAL TID PRN PRN #1 01/02/20 tube Menthol/Lanolin/Calamine/Znox 1 applic TOPICAL BID tube 01/02/20 [Calmoseptine Ointment] traMADol [Ultram] 50 mg PO Q6H PRN PRN 3 Days #12 tab 01/02/20 Surgical History: Surgical History (Last Reviewed 12/16/19 @ 21:[address] Jese Strauss, DO) History of PTCA (Chronic) Z98.61 History of appendectomy Z98.890, Z90.49 History of carpal tunnel surgery of left wrist Z98.890 History of cholecystectomy Z98.890, Z90.49 History of gastric bypass Z98.84 History of tonsillectomy Z98.890, Z90.89 history of carpal tunnel release left wrist 2018 history of right hip surgery Surgical History: angioplasty - Cardiac stent., appendectomy, cholecystectomy, herniorrhaphy, total hip arthroplasty - Right., tonsillectomy, - - Right lower extremity surgery x3 as well as bone grafting, gastric bypass. 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 Jese Strauss DO) Mother Heart disease Cancer Father Hypertension Arthritis Hyperlipemia Grandmother Breast cancer Heart disease Grandfather Heart disease History Items: Hypertension Maternal Family History: Family History (Last Reviewed 12/16/19 @ 21:[address] Jese Strauss DO) Mother Heart disease Cancer Father Hypertension Arthritis Hyperlipemia Grandmother Breast cancer Heart disease Grandfather Heart disease History Items: Cancer, Heart Disease Paternal Family History: Family History (Last Reviewed 12/16/19 @ 21:[address] Jese Strauss DO) Mother Heart disease Cancer Father Hypertension Arthritis Hyperlipemia Grandmother Breast cancer Heart disease Grandfather Heart disease History Items: High Cholesterol, Heart Disease, Hypertension Capacity - Capacity Assessment Tool Can the patient make a choice & communicate that choice?: Yes Can the patient understand benefits, risks and alternatives?: Yes Can the patient make a logical, rational choice?: Yes Is the choice the patient makes consistent w/ their values?: Yes Is there an impending, emergent risk to the patient?: No Does the patient have an Advance Directive?: Yes Is there a Surrogate Available?: Yes i.e. HCPOA: Yes i.e. close relative (spouse, child, parent, sibling)?: Yes Review of Systems Constitutional: Denies: Chills, Fever, Weight Change HEENT: Denies: Head Aches, Sinus Congestion, Sinus Drainage Cardiovascular: Denies: Chest Pain, Palpitations Respiratory: Denies: Cough, Shortness of breath at rest, Sputum production Gastrointestinal: Denies: Abdominal Pain, Nausea, Vomiting Genitourinary: Denies: Dysuria Musculoskeletal: Denies: Joint Pain, Joint Tenderness Skin: Denies: Rash, Wounds Neurological: Denies: Numbness, Tingling, Focal weakness Psychiatric: Denies: Anxiety, Depression, Homicidal Ideations, Suicidal Ideations Hematologic/ Lymphatic: Denies: Easy Bruising, Easy Bleeding Patient Problems: Active and Suspected Problems (Last Reviewed 12/16/19 @ 21:[address] Jese Jopperi, DO) Cellulitis of left lower extremity (Acute) Syncope (Acute) Closed left ankle fracture (Acute) Debility (Acute) Fall (Acute) - Physical Exam Vitals/I&O's: Vital Signs Temp Pulse Resp BP Pulse Ox 96.8 F L 62 16 117/57 L 99 01/20/20 13:04 01/20/20 13:04 01/20/20 13:04 01/20/20 13:04 01/20/20 13:04 Oxygen Flow Rate (L/min) 3 Oxygen Delivery Method Nasal Cannula Weight: 115.269 kg Body Mass Index (BMI) 44.2 Finger Stick Blood Glucose 422 Intake and Output for Last 24 Hours 01/18/20 01/19/20 01/20/20 23:59 23:59 23:59 Intake Total 1732 / 1732 1900 / 1900 1260 / 1260 Output Total 400 / 400 Balance 1332 / 1332 1900 / 1900 1260 / 1260 General: Alert, Oriented x3, Cooperative HEENT: Atraumatic, PERRLA, EOMI, Normocephalic Neck: Supple, No JVD, Negative Carotid Bruits Lungs: Clear to auscultation, Normal air movement Cardiovascular: Regular rate, No murmurs Abdomen: Bowel Sounds Present, Soft, Non Tender Extremities: No edema, Capillary Refill Less than 3 Seconds Skin: No rashes, No breakdown Musculoskeletal: No Tenderness to Palpation of Joints or Extremities Neurological: Cranial nerves II-XII grossly intact Psych/Mental Status: Normal Affect, Appropriate Laboratory Results 01/19/20 20:56: POC Glucose 229 H 01/20/20 06:06: POC Glucose 127 H 01/20/20 10:35: POC Glucose 222 H 01/20/20 16:35: POC Glucose 138 H Current Medications Albuterol Sulfate (Albuterol Sulfate Hfa 6.7 Gm Inhaler (200 Puffs)) 2 puff IH Q6H PRN PRN PRN Reason: SOB &/or Wheezing Alprazolam (Alprazolam 0.5 Mg Tablet) 0.5 mg PO TID PRN PRN PRN Reason: ANXIETY Last Admin: 01/20/20 18:12 Dose: 0.5 mg Documented by: Amlodipine Besylate (Amlodipine 10 Mg Tablet) 10 mg PO DAILY [facility] Last Admin: 01/20/20 06:24 Dose: 10 mg Documented by: Apixaban (Apixaban 5 Mg Tablet) 5 mg PO BID [facility] Last Admin: 01/20/20 17:53 Dose: 5 mg Documented by: Atorvastatin Calcium (Atorvastatin Calcium 80 Mg Tablet) 80 mg PO QHS [facility] Last Admin: 01/19/20 20:33 Dose: 80 mg Documented by: Baclofen (Baclofen 10 Mg Tablet) 10 mg PO TID [facility] Last Admin: 01/20/20 13:19 Dose: 10 mg Documented by: Buspirone HCl (Buspirone 15 Mg Tablet) 30 mg PO BID [facility] Last Admin: 01/20/20 17:52 Dose: 30 mg Documented by: Calamine/Phenol (Menthol/Lanolin/Calamine/Znox 113 Gm Tube) 1 applic TOPICAL BID [facility]; Protocol Last Admin: 01/20/20 17:52 Dose: 1 applicatio Documented by: Furosemide (Furosemide 20 Mg Tablet) 20 mg PO DAILY [facility] Last Admin: 01/20/20 06:24 Dose: 20 mg Documented by: Heparin Sodium (Beef Lung) (Heparin Pf Lock 10 Units/Ml 50 Units/5 Ml Syringe) 50 units IV UD PRN PRN Reason: PICC Line Heparin Flush Hydromorphone HCl (Hydromorphone 2 Mg Tablet) 2 mg PO Q3H PRN PRN PRN Reason: Pain Score 6-10 Last Admin: 01/20/20 18:11 Dose: 2 mg Documented by: Vancomycin IV Pharmacy to Dose (1 ea/ Sodium Chloride) 500 mls @ 250 mls/hr IV X1 PRN; Protocol PRN Reason: Rx to Dose Stop: 01/21/20 12:00 Vancomycin HCl (Vancomycin) 1,000 mg in 200 mls @ 200 mls/hr IV Q12H [facility] Stop: 01/21/20 12:01 Last Infusion: 01/20/20 11:23 Dose: Infused Documented by: Insulin Glargine (Insulin Glargine 100 Units/Ml Pen) 40 units SC BID [facility] Last Admin: 01/20/20 17:53 Dose: 40 u Documented by: Insulin Human Lispro (Insulin Lispro 100 Unit/Ml Insuln.Pen) 5 unit SC TIDAC [facility] Last Admin: 01/20/20 17:52 Dose: 5 units Documented by: Lactic Acid (Ammonium Lactate 225 Gm Bottle) 1 applic TOPICAL DAILY [facility]; Protocol Last Admin: 01/20/20 10:04 Dose: 1 applicatio Documented by: Lactobacillus Acidophilus (Lactobacillus Acidophilus) 2 tablet PO BID [facility] Last Admin: 01/20/20 17:52 Dose: 2 tablet Documented by: Lisinopril (Lisinopril 20 Mg Tablet) 20 mg PO HS [facility] Last Admin: 01/19/20 20:33 Dose: 20 mg Documented by: Metoprolol Tartrate (Metoprolol Tartrate 50 Mg Tablet) 50 mg PO DAILY [facility] Last Admin: 01/20/20 06:24 Dose: 50 mg Documented by: Mirabegron (Mirabegron 25 Mg Tab.Er.24h) 25 mg PO DAILY [facility] Last Admin: 01/20/20 06:23 Dose: 25 mg Documented by: Montelukast Sodium (Montelukast 10 Mg Tablet) 10 mg PO HS [facility] Last Admin: 01/19/20 20:34 Dose: 10 mg Documented by: Nicotine (Nicotine 21 Mg Patch) 21 mg TRANSDERM. DAILY [facility] Last Admin: 01/20/20 06:24 Dose: 21 mg Documented by: Nitroglycerin (Nitroglycerin (Inpatient Use) 0.4 Mg Tab.Subl) 0.4 mg SUBLINGUAL Q5M PRN PRN Reason: CARDIAC/CHEST PAIN Nystatin (Nystatin Powder 15gm Bottle) 1 applic TOPICAL BID [facility]; Protocol Last Admin: 01/20/20 17:55 Dose: 1 applicatio Documented by: Polyethylene Glycol (Polyethylene Glycol 3350 17 Gm Packet) 17 gm PO BID [facility] Last Admin: 01/20/20 17:54 Dose: 17 gm Documented by: Potassium Chloride (Potassium Chloride 10 Meq Tablet) 10 meq PO DAILYCM [facility] Last Admin: 01/20/20 08:28 Dose: 10 meq Documented by: Pregabalin (Pregabalin 75 Mg Capsule) 75 mg PO TID [facility] Last Admin: 01/20/20 13:22 Dose: 75 mg Documented by: Promethazine HCl (Promethazine 25 Mg Tablet) 12.5 mg PO Q6H PRN PRN PRN Reason: NAUSEA/VOMITING Last Admin: 01/17/20 08:48 Dose: 12.5 mg Documented by: Risperidone (Risperidone 1 Mg Tablet) 4 mg PO QHS [facility] Last Admin: 01/19/20 20:33 Dose: 4 mg Documented by: Fluticasone/Salmeterol (Fluticasone/Salmeterol 232-14 Inhaler) 2 puff IH Q12 [facility] Last Admin: 01/20/20 17:53 Dose: 2 puff Documented by: Senna/Docusate Sodium (Senna/Docusate Sodium 1 Tablet) 2 tablet PO BID [facility] Last Admin: 01/20/20 17:55 Dose: 2 tablet Documented by: Sodium Chloride (0.9% Normal Saline 250 Ml Iv.Soln.) 250 ml IV BID PRN PRN PRN Reason: SALINE FLUSH Last Admin: 01/15/20 08:56 Dose: 250 ml Documented by: Sodium Chloride (0.9% Saline Lock 10 Ml Syringe) 10 - 40 ml IV UD PRN PRN Reason: SALINE FLUSH Last Admin: 01/19/20 20:34 Dose: 20 ml Documented by: Sodium Chloride (0.9% Saline Lock 10 Ml Syringe) 10 - 40 ml IV UD PRN PRN Reason: Open End PICC Flush Sodium Chloride (0.9 % Nacl (Sterile) Posiflush 10 Ml) 10 - 40 ml IV UD PRN PRN Reason: Port access or dressing change Sodium Hypochlorite (Dakin's Brittany Half Strength (=0.25%)) 1 applic TOPICAL DAILY@1000 [facility]; Protocol Last Admin: 01/20/20 10:05 Dose: 1 applicatio Documented by: Sucralfate (Sucralfate 1 Gm Tablet) 1 gm PO 1HR_ACHS [facility] Last Admin: 01/20/20 17:52 Dose: 1 gm Documented by: Tizanidine HCl (Tizanidine Hcl 2 Mg Tablet) 6 mg PO Q8H PRN PRN PRN Reason: SPASMS Last Admin: 01/19/20 22:42 Dose: 6 mg Documented by: Tramadol HCl (Tramadol 50 Mg Tablet) 50 mg PO Q6H PRN PRN PRN Reason: Pain Score 1-5 Last Admin: 01/20/20 15:33 Dose: 50 mg Documented by: Trazodone HCl (Trazodone 50 Mg Tablet) 200 mg PO QHS [facility] Last Admin: 01/19/20 20:33 Dose: 200 mg Documented by: Umeclidinium [place] (Umeclidinium [place] Inhaler) 2 puff IH DAILY [facility] Last Admin: 01/20/20 06:25 Dose: 2 puff Documented by: Assessment/Plan All Active Problems (Last Reviewed 12/16/19 @ 21:[address] Jese Strauss, DO) Other specified peripheral vascular diseases (Acute) Cellulitis of left lower extremity (Acute) Difficulty in walking, not elsewhere classified (Acute) Syncope (Acute) Closed left ankle fracture (Acute) Debility (Acute) Fall (Acute) Diarrhea (Resolved) Hypokalemia (Resolved) 54 year old female with below past medical history hospitalized for left ankle fracture, syncope evaluation negative, admitted to TCU with debility, here for rehabilitation, strengthening, prior to ORIF left ankle fracture per Dr. Mitchell, prior to further therapy, then discharge home alone. Debility - PT/OT. Pain - Tramadol 50MG Q6H PRN pain (1-5), Dilaudid 2MG Q3H PRN pain (6-10). Bowel - Miralax 17GM BID, Senna/colace 2 tablets BID. Adult immunization - Administer Prevnar 13, Pneumovax 23, Fluzone as appropriate. DVT prophylaxis - Not necessary, already on Eliquis. Hyperlipidemia - Atorvastatin 80MG QHS. Coronary Artery Disease - Metoprolol succinate 50MG daily, Lisinopril 20MG QHS, NTG 0.4MG SL PRN chest pain. Hypertension - Metoprolol succinate 50MG daily, Lisinopril 20MG QHS, Amlodipine 10MG daily. Hypokalemia - KCL ER 10MEQ daily. Diabetic polyneuropathy - Lyrica 75MG TID. 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 Muscle spasm - Tizanidine 6MG TID PRN, Baclofen 10MG TID. Insomnia - Trazodone 200MG QHS. Edema - Lasix 20MG daily. Overactive bladder - Myrbetriq 25MG daily. Pulmonary Embolism - Eliquis 5MG BID. COPD - Advair 232-14 2 puffs Q12H, Incruse 2 puffs daily, Albuterol MDI 2 puffs Q6H. Anxiety - Buspirone 30MG BID, Xanax 0.5MG TID PRN. GERD - Sucralfate 1GM QACHS. Tinea Corporis - Nystatin topical BID. Nausea - Phenergan 12.5MG BID PRN. Allergic rhinitis - Montelukast 10MG QHS. GI prophylaxis - Lactobacillus 2 tablets BID. Diabetes Mellitus II - Lantus 40 units BID, Humalog 5 units TIDAC. Tobacco Abuse - Nicotine 21MG TD daily. Skin irritation - Lac Hydrin topical daily, Calmoseptine topical BID. Wound - Dakins 1/2 topical daily. S. Epi cellulitis - Dr. Escobar, Vancomycin 1000MG IV Q12H.
[2020-01-20] MEDS: 0.9% Saline Lock 10 ML Syringe IV (21:09)
[2020-01-20] MEDS: Atorvastatin Calcium 80 MG Tablet PO (21:12)
[2020-01-20] MEDS: traZODone 50 MG Tablet 200 MG PO (21:13)
[2020-01-20] MEDS: Lisinopril 20 MG Tablet PO (21:14)
[2020-01-20] MEDS: RisperiDONE 1 MG Tablet 4 MG PO (21:14)
[2020-01-20] MEDS: Montelukast 10 MG Tablet PO (21:15)
[2020-01-20 21:41] LABS: Bedside Glucose 171 mg/dL (70-110)
[2020-01-21] MEDS: HYDROmorphone 2 MG TABLET PO ×5 (04:13→20:42)
[2020-01-21 04:28] VITALS: BP 120/52; PULSE 66; RESP 18; TEMP 36.7; O2SAT 99
[2020-01-21 06:36] LABS: Bedside Glucose 121 mg/dL (70-110)
[2020-01-21] MEDS: Polyethylene Glycol 3350 17 GM PACKET PO ×2 (06:42→17:25)
[2020-01-21] MEDS: amLODIPine 10 MG Tablet PO (06:43)
[2020-01-21] MEDS: Senna/Docusate Sodium 1 Tablet 2 TABLET PO ×2 (06:43→17:25)
[2020-01-21 06:44] VITALS: PULSE 66
[2020-01-21] MEDS: Fluticasone/Salmeterol 232-14 Inhaler 2 PUFF IH ×2 (06:44→17:26)
[2020-01-21] MEDS: APIXABAN 5 MG TABLET PO ×2 (06:44→17:24)
[2020-01-21] MEDS: Metoprolol Tartrate 50 MG Tablet PO (06:44)
[2020-01-21] MEDS: Furosemide 20 MG Tablet PO (06:44)
[2020-01-21] MEDS: Mirabegron 25 MG TAB.ER.24H PO (06:44)
[2020-01-21] MEDS: busPIRone 15 MG TABLET 30 MG PO ×2 (06:44→17:24)
[2020-01-21] MEDS: Pregabalin 75 MG Capsule PO ×3 (06:44→21:14)
[2020-01-21] MEDS: Umeclidinium Bromide Inhaler 2 PUFF IH (06:45)
[2020-01-21] MEDS: Menthol/Lanolin/Calamine/Znox 113 GM Tube 1 APPLIC TOPICAL ×2 (06:53→17:24)
[2020-01-21] MEDS: Nystatin Powder 15gm Bottle 1 APPLIC TOPICAL ×2 (06:54→17:25)
[2020-01-21] MEDS: Baclofen 10 MG Tablet PO ×3 (06:55→21:17)
[2020-01-21] MEDS: Sucralfate 1 GM Tablet PO ×4 (08:14→21:18)
[2020-01-21] MEDS: 0.9% Saline Lock 10 ML Syringe IV (09:30)
[2020-01-21] MEDS: Vancomycin IV 1,000 MG/200 ML BAG 200 MG IV (09:30)
[2020-01-21 11:11] LABS: Bedside Glucose 183 mg/dL (70-110)
[2020-01-21] MEDS: Insulin Lispro 100 UNIT/ML INSULN.PEN SC ×2 (11:37→17:27)
[2020-01-21 13:27] VITALS: BP 116/68; PULSE 56; RESP 15; TEMP 36.1; O2SAT 95
[2020-01-21] MEDS: traMADol 50 MG Tablet PO (13:48)
--- NOTE | 2020-01-21 14:34 | NURSING ---
pt getting in beauty shop getting hair done by beautician.
[2020-01-21 16:25] LABS: Bedside Glucose 115 mg/dL (70-110)
[2020-01-21] MEDS: ALPRAZolam 0.5 MG Tablet PO (18:31)
[2020-01-21] MEDS: traZODone 50 MG Tablet 200 MG PO (21:17)
[2020-01-21] MEDS: RisperiDONE 1 MG Tablet 4 MG PO (21:19)
[2020-01-21] MEDS: Atorvastatin Calcium 80 MG Tablet PO (21:19)
[2020-01-21] MEDS: Montelukast 10 MG Tablet PO (21:20)
[2020-01-21] MEDS: Lisinopril 20 MG Tablet PO (21:20)
[2020-01-21] MEDS: Ammonium Lactate 225 gm Bottle 1 APPLIC TOPICAL (21:24)
[2020-01-21] MEDS: DAKIN'S SOL HALF STRENGTH (=0.25%) 1 APPLIC TOPICAL (21:24)
[2020-01-21 21:25] LABS: Bedside Glucose 169 mg/dL (70-110)
[2020-01-22] MEDS: HYDROmorphone 2 MG TABLET PO ×5 (01:34→22:01)
[2020-01-22] MEDS: 0.9% Saline Lock 10 ML Syringe IV ×3 (01:35→23:12)
[2020-01-22 05:00] VITALS: BP 126/78; PULSE 82; RESP 18; TEMP 36.6; O2SAT 97
[2020-01-22] MEDS: Pregabalin 75 MG Capsule PO ×3 (05:16→22:00)
[2020-01-22] MEDS: Polyethylene Glycol 3350 17 GM PACKET PO ×2 (05:18→17:52)
[2020-01-22] MEDS: Mirabegron 25 MG TAB.ER.24H PO (05:19)
[2020-01-22] MEDS: Senna/Docusate Sodium 1 Tablet 2 TABLET PO ×2 (05:19→17:52)
[2020-01-22 05:20] VITALS: BP 129/68; PULSE 82
[2020-01-22] MEDS: Metoprolol Tartrate 50 MG Tablet PO (05:20)
[2020-01-22] MEDS: amLODIPine 10 MG Tablet PO (05:20)
[2020-01-22] MEDS: Furosemide 20 MG Tablet PO (05:20)
[2020-01-22] MEDS: Baclofen 10 MG Tablet PO ×3 (05:20→22:01)
[2020-01-22] MEDS: busPIRone 15 MG TABLET 30 MG PO ×2 (05:20→17:52)
[2020-01-22] MEDS: APIXABAN 5 MG TABLET PO ×2 (05:21→17:53)
[2020-01-22] MEDS: Sucralfate 1 GM Tablet PO ×4 (05:21→22:02)
[2020-01-22] MEDS: Umeclidinium Bromide Inhaler 2 PUFF IH (05:23)
[2020-01-22] MEDS: Fluticasone/Salmeterol 232-14 Inhaler 2 PUFF IH ×2 (05:24→17:54)
[2020-01-22] MEDS: Nystatin Powder 15gm Bottle 1 APPLIC TOPICAL ×2 (05:25→17:54)
[2020-01-22] MEDS: ALPRAZolam 0.5 MG Tablet PO ×3 (05:28→22:01)
[2020-01-22 05:57] LABS: Anion Gap 3 (5-15); BUN 8 mg/dL (7-18); BUN/Creat Ratio 10.3 RATIO (10-20); Calcium,Total 10.4 mg/dL (8.5-10.1); Chloride 105 mmol/L (98-107); Creatinine, Serum 0.78 mg/dL (0.55-1.02); EST Glomerular Filtration Rate 82 mL/min (>60); Est Glom Filt Rate - Afr Amer 99 mL/min (>60); Estimated Creatinine Clearance 68.21 ml/min; Glucose 108 mg/dL (74-106); Potassium 3.8 mmol/L (3.5-5.1); Sodium Level 139 mmol/L (136-145)
[2020-01-22 06:40] LABS: Bedside Glucose 123 mg/dL (70-110)
[2020-01-22] MEDS: Insulin Lispro 100 UNIT/ML INSULN.PEN SC ×3 (09:45→17:46)
--- NOTE | 2020-01-22 11:00 | PCM.RX.CS ---
Consult Pharmacy has been consulted to manage selected antiobiotic: Vancomycin Type of Consult: Follow-up Suspected Infection: Skin/Soft tissue Labs: Sodium 139 mmol/L (136-145) 01/22/20 05:10 Potassium 3.8 mmol/L (3.5-5.1) 01/22/20 05:10 Chloride 105 mmol/L (98-107) 01/22/20 05:10 Carbon Dioxide 31.0 mmol/L (21.0-32.0) 01/22/20 05:10 Anion Gap 3 (5-15) L 01/22/20 05:10 BUN 8 mg/dL (7-18) 01/22/20 05:10 Creatinine 0.78 mg/dL (0.55-1.02) 01/22/20 05:10 Est GFR (MDRD) Af Amer 99 mL/min (>60) 01/22/20 05:10 Est GFR (MDRD) Non-Af 82 mL/min (>60) 01/22/20 05:10 BUN/Creatinine Ratio 10.3 RATIO (-) 01/22/20 05:10 Glucose 108 mg/dL (74-106) H 01/22/20 05:10 Vancomycin Trough 11.6 ug/mL (5.0-15.0) 01/16/20 20:48 Microbiology: Microbiology 01/13/20 Unknown Mucosa - Nose Respiratory Syncytial Virus Ag Scrn - Final 01/06/20 19:05 Wound Abcess - No Site/Description Given Gram Stain - Final 01/06/20 19:05 Wound Abcess - No Site/Description Given Wound Culture - Final Staphylococcus epidermidis Staphylococcus epidermidis#2 01/06/20 19:05 Wound Abcess - No Site/Description Given Anaerobic Culture - Final No anaerobic bacteria isolated. 12/30/19 10:45 Mucosa - Nose - Final 12/23/19 22:47 Blood Culture (Wb) - Left Hand Blood Culture - Final No growth in 5 days. 12/23/19 23:00 Blood Culture (Wb) - No Site/Description Given Blood Culture - Final No growth in 5 days. Goal Trough: 10-15 mcg/mL Pharmacy Plan for Drug Dosing: VANCOMYCIN WAS SCHEDULED TO D/C 01/20 @ 1200. ID NOTE FROM 01/19 SAYS TO CONTINUE VANCOMYCIN WHILE PATIENT IS IN TCU. I SPOKE WITH DR. QUESADA AND HE WOULD LIKE THE VANCO TO BE RESTARTED. PATIENT HAD LAST DOSE OF 1000MG 01/20 @ 0930 SO SHE MISSED [address] QUESADA IS OKAY WITH CONTINUING SAME TROUGH OF 10-15, RESUMING DOSE OF 1000MG Q12H STARTING NOW AND GETTING A TROUGH PRIOR TO THE 4TH DOSE. SCR: 0.78 (01/21)- RENAL FXN STABLE CRCL: 97.6ML/MIN USING ADJUSTED BW Pharmacy Service will continue to monitor and adjust dosing as required. Labs to be done on [date and time ordered]: 01/23/20 @ 3954
[2020-01-22 11:05] LABS: Bedside Glucose 189 mg/dL (70-110)
--- NOTE | 2020-01-22 11:14 | CON.PCM_ITS ---
Problem List (1) PAD (peripheral artery disease) Status: Acute Reason for Consult Date of Consultation: 01/22/20 Reason for Consultation: PAD History of Present Illness: The patient is a 54 year old F who had ankle fracture and had a surgery mid- December. Had done well but now with the increasing pain and erythema and infection. She has been admitted in with IV antibiotics and treatment for this. She had some vascular lab testing that showed moderate right femoral stenosis in the left leg with no significant stenosis noted. Bilateral legs had triphasic flow noted throughout. ABEL 1.37 on the right and 1.36 on the right. She may have some hardening and this being slightly elevated. But she had really good waveforms noted throughout. She has palpable pulse. And adequate perfusion. Digit brachial index 0.94 on the right 0.67 on the left which is also adequate. Coronary stenting x5. No stroke. She is still actively smoking. Hypertension on meds. Diabetic since around 2018 on meds. Hyperlipidemia on a statin. PAD as above. [] Past Medical History Past Medical History (Chronic Problems): Chronic Problems (Last Reviewed 01/22/20 @ 11:[address] Tanner Salgado MD) Stage 2 moderate COPD by GOLD classification (Chronic) Acute and chronic respiratory failure with hypoxia (Chronic) Cataract (Chronic) Iron deficiency (Chronic) Iron deficiency anemia following bariatric surgery (Chronic) History of gastric bypass (Chronic) Myocardial infarction (Chronic) H/O heart artery stent (Chronic) Pulmonary emboli (Chronic) Diabetic polyneuropathy (Chronic) Muscle spasm (Chronic) Insomnia (Chronic) Overactive bladder (Chronic) Anxiety (Chronic) Coronary artery disease (Chronic) COPD (chronic obstructive pulmonary disease) (Chronic) Diabetes mellitus (Chronic) HTN (hypertension) (Chronic) Peptic ulcer (Chronic) Chronic neutrophilia (Chronic) Osteoarthritis (Chronic) Morbid obesity (Chronic) Neutrophilic leukocytosis (Chronic) Type 2 diabetes mellitus (Chronic) Schizophrenia (Chronic) Hip osteoarthritis (Chronic) with chronic pain-right hip Iron deficiency anemia due to dietary causes (Chronic) exact cause of iron def anemia unknown-felt likely secondary to past history gastric bypass- although chronic blood loss etiology a possibility (has never had colonoscopy)-further workup including hemoccult stool is recommended Morbid obesity with BMI of 45.0-49.9, adult (Chronic) Pulmonary hypertension (Chronic) Chronic narcotic use (Chronic) Depression (Chronic) Gastroesophageal reflux disease (Chronic) Parathyroid abnormality (Chronic) History of PTCA (Chronic) Vitamin D deficiency (Chronic) Hyperlipidemia (Chronic) Thyroid nodule (Chronic) deemed to be benign. Benign essential hypertension (Chronic) CAD (coronary artery disease) (Chronic) RACHEL (obstructive sleep apnea) (Chronic) 17/13 cm of water Spinal stenosis of lumbar region at multiple levels (Chronic) Tobacco abuse (Chronic) Medical History: Medical History (Last Reviewed 01/22/20 @ 11:[address] Tanner Salgado MD) HTN (hypertension) (Chronic) I10 Peptic ulcer (Chronic) K27.9 Chronic neutrophilia (Chronic) D72.828 Osteoarthritis (Chronic) M19.90 Morbid obesity (Chronic) E66.01 Neutrophilic leukocytosis (Chronic) D72.9 Type 2 diabetes mellitus (Chronic) E11.9 Schizophrenia (Chronic) F20.9 Hip osteoarthritis (Chronic) M16.9 with chronic pain-right hip Iron deficiency anemia due to dietary causes (Chronic) D50.8 exact cause of iron def anemia unknown-felt likely secondary to past history gastric bypass- although chronic blood loss etiology a possibility (has never had colonoscopy)-further workup including hemoccult stool is recommended Morbid obesity with BMI of 45.0-49.9, adult (Chronic) E66.01, Z68.42 Pulmonary hypertension (Chronic) I27.2 Chronic narcotic use (Chronic) F11.90 Depression (Chronic) F32.9 Gastroesophageal reflux disease (Chronic) K21.9 Parathyroid abnormality (Chronic) E21.5 Vitamin D deficiency (Chronic) E55.9 Hyperlipidemia (Chronic) E78.5 Thyroid nodule (Chronic) E04.1 deemed to be benign. Benign essential hypertension (Chronic) I10 CAD (coronary artery disease) (Chronic) I25.10 RACHEL (obstructive sleep apnea) (Chronic) G47.33 17/13 cm of water Spinal stenosis of lumbar region at multiple levels (Chronic) M48.06 Tobacco abuse (Chronic) Z72.0 Bipolar 2 disorder F31.81 History of pulmonary embolism Z86.711 Schizoaffective disorder F25.9 Allergies amoxicillin Allergy (Verified 01/14/20 19:14) Itching erythromycin base Allergy (Verified 01/14/20 19:14) Unknown methadone Allergy (Verified 01/14/20 19:14) Itching metolazone Allergy (Verified 01/14/20 19:14) Unknown Penicillins Allergy (Verified 01/14/20 19:14) Hives Sulfa (Sulfonamide Antibiotics) Allergy (Verified 01/14/20 19:14) Hives acetaminophen [From Percocet] Adverse Reaction (Verified 01/14/20 19:14) Itching clarithromycin [From Biaxin] Adverse Reaction (Verified 01/14/20 19:14) Nausea ibuprofen Adverse Reaction (Verified 01/14/20 19:14) 3 BLEEDING ULCERS 3 BLEEDING ULCERS morphine Adverse Reaction (Verified 01/14/20 19:14) HEADACHE HEADACHE oxycodone [From Percocet] Adverse Reaction (Verified 01/14/20 19:14) Itching Home Medications: Ambulatory Orders Medication Instructions Recorded Atorvastatin Calcium [Lipitor] 80 mg PO QHS 08/22/15 Metoprolol(XL)Succ [Toprol Xl 50 mg PO DAILY 08/22/15 (Beta Trino)] Nitroglycerin 0.4 mg SL PRN PRN 11/08/16 amlodipine 10 mg tablet 10 mg PO DAILY tab 05/02/17 potassium chloride 10 mEq 10 meq PO DAILY #60 tab 06/16/17 tablet,extended release(part/cryst) Pregabalin [Lyrica] 75 mg PO TID 03/08/18 Risperidone 4 mg PO QHS 03/08/18 Tizanidine HCl 6 mg PO TID PRN PRN 03/08/18 traZODone [Desyrel] 200 mg PO QHS 03/08/18 Furosemide [Lasix] 20 mg PO DAILY 11/20/18 Lisinopril 20 mg PO QHS 11/20/18 Mirabegron [Myrbetriq] 25 mg PO DAILY 11/20/18 Apixaban [Eliquis] 5 mg PO BID 05/02/19 Fluticasone/Salmeterol [Advair Hfa 2 puff INHALATION DAILY 05/02/19 230-21 Mcg Inhaler] albuterol sulfate 90 mcg/actuation 2 puff INHALATION Q6H PRN 06/27/19 aerosol inhaler buspirone 30 mg tablet 30 mg PO BID tab 06/27/19 sucralfate 1 gram tablet 1 g PO QACHS 06/27/19 Nystatin [Nystop] 1 applic TP 4X/DAY 08/22/19 proMETHazine tablet [Phenergan 12.5 - 25 mg PO BID PRN PRN 08/22/19 tablet] tiotropium bromide 2.5 2 puff INHALATION DAILY #4 g 09/30/19 mcg/actuation mist for inhalation montelukast 10 mg tablet 10 mg PO QHS #30 tab 10/30/19 albuterol sulfate 2.5 mg INHALATION Q4H PRN #180 ml 12/11/19 Lactobacillus Acidophilus 2 tab PO BID 12/16/19 [Acidophilus] Insulin Glargine [Lantus SoloStar 40 units SC BID 12/18/19 Pen] Nicotine [Nicoderm Cq] 21 mg TRANSDERM. DAILY 12/18/19 Apixaban [Eliquis] 5 mg PO BID tab 01/02/20 HYDROmorphone tablet [Dilaudid] 2 mg PO Q3H PRN PRN 3 Days #18 tab 01/02/20 Hydrocortisone 2.5% Crm [Hytone] 1 applic TOPICAL TID PRN PRN #1 01/02/20 tube Menthol/Lanolin/Calamine/Znox 1 applic TOPICAL BID tube 01/02/20 [Calmoseptine Ointment] traMADol [Ultram] 50 mg PO Q6H PRN PRN 3 Days #12 tab 01/02/20 Surgical History: Surgical History (Last Reviewed 12/16/19 @ 21:[address] Jese Strauss, DO) History of PTCA (Chronic) Z98.61 History of appendectomy Z98.890, Z90.49 History of carpal tunnel surgery of left wrist Z98.890 History of cholecystectomy Z98.890, Z90.49 History of gastric bypass Z98.84 History of tonsillectomy Z98.890, Z90.89 history of carpal tunnel release left wrist 2018 history of right hip surgery Surgical History: angioplasty - Cardiac stent., appendectomy, cholecystectomy, herniorrhaphy, total hip arthroplasty - Right., tonsillectomy, - - Right lower extremity surgery x3 as well as bone grafting, gastric bypass. Psychiatric History: Anxiety, Depression, Schizophrenia DRY CURER History: No pertinent DRY CURER history Lives: Alone Smoking Status: Current every day smoker Tobacco Use: Cigarettes Alcohol: None Drugs: Marijuana - *Family History Sibling Family History: Family History (Last Reviewed 01/22/20 @ 11:[address] Tanner Salgado MD) Mother Heart disease Cancer Father Hypertension Arthritis Hyperlipemia Grandmother Breast cancer Heart disease Grandfather Heart disease History Items: Hypertension Maternal Family History: Family History (Last Reviewed 01/22/20 @ 11:[address] Tanner Salgado MD) Mother Heart disease Cancer Father Hypertension Arthritis Hyperlipemia Grandmother Breast cancer Heart disease Grandfather Heart disease History Items: Cancer, Heart Disease Paternal Family History: Family History (Last Reviewed 01/22/20 @ 11:[address] Tanner Salgado MD) Mother Heart disease Cancer Father Hypertension Arthritis Hyperlipemia Grandmother Breast cancer Heart disease Grandfather Heart disease History Items: High Cholesterol, Heart Disease, Hypertension Review of Systems Constitutional: Denies: Chills, Fever, Weight Change HEENT: Denies: Head Aches, Sinus Congestion, Sinus Drainage Cardiovascular: Reports: Chest Pain Respiratory: Denies: Cough, Shortness of breath at rest, Sputum production Gastrointestinal: Denies: Abdominal Pain, Nausea, Vomiting Genitourinary: Denies: Dysuria Musculoskeletal: Reports: - - States improved pain left ankle Patient Problems: Active and Suspected Problems (Last Reviewed 01/22/20 @ 11:[address] Tanner Salgado MD) Cellulitis of left lower extremity (Acute) Syncope (Acute) Closed left ankle fracture (Acute) Debility (Acute) Fall (Acute) - Physical Exam Vitals/I&O's: Vital Signs Temp Pulse Resp BP Pulse Ox 97.8 F 82 18 129/68 H 97 01/22/20 05:00 01/22/20 05:20 01/22/20 05:00 01/22/20 05:20 01/22/20 05:00 Oxygen Flow Rate (L/min) 3 Oxygen Delivery Method Room Air Weight: 240 lb 6 oz Body Mass Index (BMI) 44.2 Finger Stick Blood Glucose 422 Intake and Output for Last 24 Hours 01/20/20 01/21/20 01/22/20 23:59 23:59 23:59 Intake Total 1460 / 1460 1280 / 1280 180 / 180 Output Total 400 / 400 200 / 200 Balance 1460 / 1460 880 / 880 - General: Alert, Oriented x3 HEENT: Atraumatic Oral: Moist Mucosa Neck: Supple Lungs: Clear to auscultation Cardiovascular: Regular rate Abdomen: Soft, Non Tender Extremities: - - Dressing intact left foot. She does have a palpable dorsalis pedis on the left. Normal cap refill Laboratory Results 01/21/20 16:16: POC Glucose 115 H 01/21/20 21:17: POC Glucose 169 H 01/22/20 05:10: Sodium 139, Potassium 3.8, Chloride 105, Carbon Dioxide 31.0, Anion Gap 3 L, BUN 8, Creatinine 0.78, Estim Creat Clear Calc 68.21, Est GFR (MDRD) Af Amer 99, Est GFR (MDRD) Non-Af 82, BUN/Creatinine Ratio 10.3, Glucose 108 H, Calcium 10.4 H 01/22/20 06:26: POC Glucose 123 H 01/22/20 10:51: POC Glucose 189 H Current Medications Albuterol Sulfate (Albuterol Sulfate Hfa 6.7 Gm Inhaler (200 Puffs)) 2 puff IH Q6H PRN PRN PRN Reason: SOB &/or Wheezing Alprazolam (Alprazolam 0.5 Mg Tablet) 0.5 mg PO TID PRN PRN PRN Reason: ANXIETY Last Admin: 01/22/20 05:28 Dose: 0.5 mg Documented by: Amlodipine Besylate (Amlodipine 10 Mg Tablet) 10 mg PO DAILY [facility] Last Admin: 01/22/20 05:20 Dose: 10 mg Documented by: Apixaban (Apixaban 5 Mg Tablet) 5 mg PO BID [facility] Last Admin: 01/22/20 05:21 Dose: 5 mg Documented by: Atorvastatin Calcium (Atorvastatin Calcium 80 Mg Tablet) 80 mg PO QHS [facility] Last Admin: 01/21/20 21:19 Dose: 80 mg Documented by: Baclofen (Baclofen 10 Mg Tablet) 10 mg PO TID [facility] Last Admin: 01/22/20 05:20 Dose: 10 mg Documented by: Buspirone HCl (Buspirone 15 Mg Tablet) 30 mg PO BID [facility] Last Admin: 01/22/20 05:20 Dose: 30 mg Documented by: Calamine/Phenol (Menthol/Lanolin/Calamine/Znox 113 Gm Tube) 1 applic TOPICAL BID [facility]; Protocol Last Admin: 01/22/20 05:25 Dose: Not Given Documented by: Furosemide (Furosemide 20 Mg Tablet) 20 mg PO DAILY [facility] Last Admin: 01/22/20 05:20 Dose: 20 mg Documented by: Heparin Sodium (Beef Lung) (Heparin Pf Lock 10 Units/Ml 50 Units/5 Ml Syringe) 50 units IV UD PRN PRN Reason: PICC Line Heparin Flush Hydromorphone HCl (Hydromorphone 2 Mg Tablet) 2 mg PO Q3H PRN PRN PRN Reason: Pain Score 6-10 Last Admin: 01/22/20 10:38 Dose: 2 mg Documented by: Vancomycin IV Pharmacy to Dose (1 ea/ Sodium Chloride) 500 mls @ 250 mls/hr IV X1 PRN; Protocol PRN Reason: Rx to Dose Vancomycin HCl (Vancomycin) 1,000 mg in 200 mls @ 200 mls/hr IV Q12H [facility] Insulin Glargine (Insulin Glargine 100 Units/Ml Pen) 40 units SC BID [facility] Last Admin: 01/22/20 06:50 Dose: 40 u Documented by: Insulin Human Lispro (Insulin Lispro 100 Unit/Ml Insuln.Pen) 5 unit SC TIDAC [facility] Last Admin: 01/22/20 09:45 Dose: 5 units Documented by: Lactic Acid (Ammonium Lactate 225 Gm Bottle) 1 applic TOPICAL DAILY [facility]; Protocol Last Admin: 01/21/20 21:24 Dose: 1 applicatio Documented by: Lactobacillus Acidophilus (Lactobacillus Acidophilus) 2 tablet PO BID [facility] Last Admin: 01/22/20 05:19 Dose: 2 tablet Documented by: Lisinopril (Lisinopril 20 Mg Tablet) 20 mg PO [facility] Last Admin: 01/21/20 21:20 Dose: 20 mg Documented by: Metoprolol Tartrate (Metoprolol Tartrate 50 Mg Tablet) 50 mg PO DAILY [facility] Last Admin: 01/22/20 05:20 Dose: 50 mg Documented by: Mirabegron (Mirabegron 25 Mg Tab.Er.24h) 25 mg PO DAILY [facility] Last Admin: 01/22/20 05:19 Dose: 25 mg Documented by: Montelukast Sodium (Montelukast 10 Mg Tablet) 10 mg PO HS [facility] Last Admin: 01/21/20 21:20 Dose: 10 mg Documented by: Nicotine (Nicotine 21 Mg Patch) 21 mg TRANSDERM. DAILY [facility] Last Admin: 01/22/20 05:21 Dose: 21 mg Documented by: Nitroglycerin (Nitroglycerin (Inpatient Use) 0.4 Mg Tab.Subl) 0.4 mg SUBLINGUAL Q5M PRN PRN Reason: CARDIAC/CHEST PAIN Nystatin (Nystatin Powder 15gm Bottle) 1 applic TOPICAL BID [facility]; Protocol Last Admin: 01/22/20 05:25 Dose: 1 applicatio Documented by: Polyethylene Glycol (Polyethylene Glycol 3350 17 Gm Packet) 17 gm PO BID [facility] Last Admin: 01/22/20 05:18 Dose: 17 gm Documented by: Potassium Chloride (Potassium Chloride 10 Meq Tablet) 10 meq PO DAILYCM [facility] Last Admin: 01/22/20 08:59 Dose: 10 meq Documented by: Pregabalin (Pregabalin 75 Mg Capsule) 75 mg PO TID [facility] Last Admin: 01/22/20 05:16 Dose: 75 mg Documented by: Promethazine HCl (Promethazine 25 Mg Tablet) 12.5 mg PO Q6H PRN PRN PRN Reason: NAUSEA/VOMITING Last Admin: 01/17/20 08:48 Dose: 12.5 mg Documented by: Risperidone (Risperidone 1 Mg Tablet) 4 mg PO QHS [facility] Last Admin: 01/21/20 21:19 Dose: 4 mg Documented by: Fluticasone/Salmeterol (Fluticasone/Salmeterol 232-14 Inhaler) 2 puff IH Q12 [facility] Last Admin: 01/22/20 05:24 Dose: 2 puff Documented by: Senna/Docusate Sodium (Senna/Docusate Sodium 1 Tablet) 2 tablet PO BID [facility] Last Admin: 01/22/20 05:19 Dose: 2 tablet Documented by: Sodium Chloride (0.9% Normal Saline 250 Ml Iv.Soln.) 250 ml IV BID PRN PRN PRN Reason: SALINE FLUSH Last Admin: 01/15/20 08:56 Dose: 250 ml Documented by: Sodium Chloride (0.9% Saline Lock 10 Ml Syringe) 10 - 40 ml IV UD PRN PRN Reason: SALINE FLUSH Last Admin: 01/22/20 01:35 Dose: 10 ml Documented by: Sodium Chloride (0.9% Saline Lock 10 Ml Syringe) 10 - 40 ml IV UD PRN PRN Reason: Open End PICC Flush Sodium Chloride (0.9 % Nacl (Sterile) Posiflush 10 Ml) 10 - 40 ml IV UD PRN PRN Reason: Port access or dressing change Sodium Hypochlorite (Dakin's Brittany Half Strength (=0.25%)) 1 applic TOPICAL DAILY@1000 FORREST; Protocol Last Admin: 01/21/20 21:24 Dose: 1 applicatio Documented by: Sucralfate (Sucralfate 1 Gm Tablet) 1 gm PO 1HR_ACHS [facility] Last Admin: 01/22/20 05:21 Dose: 1 gm Documented by: Tizanidine HCl (Tizanidine Hcl 2 Mg Tablet) 6 mg PO Q8H PRN PRN PRN Reason: SPASMS Last Admin: 01/19/20 22:42 Dose: 6 mg Documented by: Tramadol HCl (Tramadol 50 Mg Tablet) 50 mg PO Q6H PRN PRN PRN Reason: Pain Score 1-5 Last Admin: 01/21/20 13:48 Dose: 50 mg Documented by: Trazodone HCl (Trazodone 50 Mg Tablet) 200 mg PO QHS [facility] Last Admin: 01/21/20 21:17 Dose: 200 mg Documented by: Umeclidinium Aurora (Umeclidinium Aurora Inhaler) 2 puff IH DAILY [facility] Last Admin: 01/22/20 05:23 Dose: 2 puff Documented by: Assessment/Plan All Active Problems (Last Reviewed 01/22/20 @ 11:[address] Tanner Salgado MD) PAD (peripheral artery disease) (Acute) Other specified peripheral vascular diseases (Acute) Cellulitis of left lower extremity (Acute) Difficulty in walking, not elsewhere classified (Acute) Syncope (Acute) Closed left ankle fracture (Acute) Debility (Acute) Fall (Acute) Diarrhea (Resolved) Hypokalemia (Resolved) 1. PAD. She appears to have adequate perfusion. She has palpable pulse. ABEL think is fairly normal for her. She has a good waveform. We will continue to follow as needed. No intervention planned at this point. Did discuss with her that she clearly needs to quit smoking.
--- NOTE | 2020-01-22 11:30 | NURSING ---
Compliance Auditor Note: In room visit to monitor for recreational needs. Res in bed, awake. Offered in room materials for use when out of bed. Resident refused offers. States that she has her phone and TV and no other needs.
[2020-01-22] MEDS: Vancomycin IV 1,000 MG/200 ML BAG 200 MG IV ×2 (12:07→23:12)
[2020-01-22] MEDS: 0.9% Normal Saline 250 ML IV.SOLN. IV (12:07)
[2020-01-22] MEDS: traMADol 50 MG Tablet PO (13:37)
[2020-01-22 14:15] VITALS: PULSE 72
[2020-01-22] MEDS: Ammonium Lactate 225 gm Bottle 1 APPLIC TOPICAL (16:15)
[2020-01-22] MEDS: DAKIN'S SOL HALF STRENGTH (=0.25%) 1 APPLIC TOPICAL (16:15)
[2020-01-22 17:00] LABS: Bedside Glucose 107 mg/dL (70-110)
[2020-01-22] MEDS: tiZANidine HCl 2 MG Tablet 6 MG PO (17:56)
[2020-01-22 21:46] LABS: Bedside Glucose 121 mg/dL (70-110)
[2020-01-22] MEDS: traZODone 50 MG Tablet 200 MG PO (22:01)
[2020-01-22] MEDS: RisperiDONE 1 MG Tablet 4 MG PO (22:01)
[2020-01-22] MEDS: Montelukast 10 MG Tablet PO (22:01)
[2020-01-22] MEDS: Lisinopril 20 MG Tablet PO (22:01)
[2020-01-22] MEDS: Atorvastatin Calcium 80 MG Tablet PO (22:02)
[2020-01-23] MEDS: HYDROmorphone 2 MG TABLET PO ×5 (02:47→19:53)
[2020-01-23 06:19] VITALS: BP 134/85; PULSE 91; RESP 19; TEMP 36.1; O2SAT 93
[2020-01-23] MEDS: Pregabalin 75 MG Capsule PO ×3 (06:21→21:24)
[2020-01-23] MEDS: ALPRAZolam 0.5 MG Tablet PO ×2 (06:21→14:58)
[2020-01-23] MEDS: Fluticasone/Salmeterol 232-14 Inhaler 2 PUFF IH ×2 (06:22→17:49)
[2020-01-23] MEDS: Senna/Docusate Sodium 1 Tablet 2 TABLET PO ×2 (06:23→17:40)
[2020-01-23] MEDS: Umeclidinium Bromide Inhaler 2 PUFF IH (06:23)
[2020-01-23] MEDS: Mirabegron 25 MG TAB.ER.24H PO (06:24)
[2020-01-23] MEDS: Polyethylene Glycol 3350 17 GM PACKET PO ×2 (06:24→17:40)
[2020-01-23 06:25] VITALS: BP 134/85; PULSE 91
[2020-01-23] MEDS: Sucralfate 1 GM Tablet PO ×4 (06:25→21:27)
[2020-01-23] MEDS: Metoprolol Tartrate 50 MG Tablet PO (06:25)
[2020-01-23] MEDS: amLODIPine 10 MG Tablet PO (06:25)
[2020-01-23] MEDS: Furosemide 20 MG Tablet PO (06:25)
[2020-01-23] MEDS: Baclofen 10 MG Tablet PO ×3 (06:25→21:26)
[2020-01-23] MEDS: APIXABAN 5 MG TABLET PO ×2 (06:25→17:42)
[2020-01-23] MEDS: busPIRone 15 MG TABLET 30 MG PO ×2 (06:25→17:39)
[2020-01-23 06:26] LABS: Bedside Glucose 96 mg/dL (70-110)
[2020-01-23] MEDS: Nystatin Powder 15gm Bottle 1 APPLIC TOPICAL ×2 (06:29→17:41)
[2020-01-23] MEDS: traMADol 50 MG Tablet PO (09:07)
[2020-01-23] MEDS: Insulin Lispro 100 UNIT/ML INSULN.PEN SC ×3 (09:41→17:48)
[2020-01-23] MEDS: Vancomycin IV 1,000 MG/200 ML BAG 200 MG IV ×2 (10:50→23:46)
[2020-01-23] MEDS: 0.9% Saline Lock 10 ML Syringe IV ×2 (10:50→23:46)
[2020-01-23] MEDS: 0.9% Normal Saline 250 ML IV.SOLN. IV (10:50)
--- NOTE | 2020-01-23 10:53 | NURSING ---
Dr Del Angel had been in to change dressing this am.
[2020-01-23 11:00] LABS: Bedside Glucose 222 mg/dL (70-110)
[2020-01-23] MEDS: Ammonium Lactate 225 gm Bottle 1 APPLIC TOPICAL (11:41)
[2020-01-23] MEDS: DAKIN'S SOL HALF STRENGTH (=0.25%) 1 APPLIC TOPICAL (11:42)
--- NOTE | 2020-01-23 13:37 | PCM.PROGNOTE ---
Patient Problems: Active and Suspected Problems (Last Reviewed 01/22/20 @ 11:[address] Tanner Salgado MD) PAD (peripheral artery disease) (Acute) Cellulitis of left lower extremity (Acute) Syncope (Acute) Closed left ankle fracture (Acute) Debility (Acute) Fall (Acute) Subjective: Patient seen and examined bedside. Patient noted to be resting comfortably. Patient complains of some pain to her left leg that is well controlled with medication. She also complains that her left leg itches. Patient denies N/F/V/C/CP/SOB/streaking/purulence - Physical Exam Vitals/I&O's: Vital Signs Temp Pulse Resp BP Pulse Ox 97.0 F L 91 19 H 134/85 H 93 01/23/20 06:19 01/23/20 06:25 01/23/20 06:19 01/23/20 06:25 01/23/20 06:19 Oxygen Flow Rate (L/min) 3 Oxygen Delivery Method Nasal Cannula Weight: 109.032 kg Body Mass Index (BMI) 44.2 Finger Stick Blood Glucose 422 Intake and Output for Last 24 Hours 01/21/20 01/22/20 01/23/20 23:59 23:59 23:59 Intake Total 1280 / 1280 860 / 860 1360 / 1360 Output Total 400 / 400 200 / 200 Balance 880 / 880 660 / 660 1360 / 1360 General: Alert, Oriented x3 HEENT: Atraumatic Extremities: No clubbing, No cyanosis, No edema, Capillary Refill Less than 3 Seconds, No Calf Tenderness, Peripheral Pulses Normal, Tenderness - along lateral incision site Skin: Ulcer/ Wound - lateral incision site dehised with underlying ulceration that doesn't go to hardware. After debridement today it has a 80% granular base with serosanginous drainage, surrounding erythema resolved, Incision - medial ankle incision well healed with surrounding dry skin Musculoskeletal: Muscle Wasting, Tenderness Neurological: - - decreased light touch sensation Psych/Mental Status: Normal Affect, Appropriate Laboratory Results 01/22/20 16:51: POC Glucose 107 01/22/20 21:41: POC Glucose 121 H 01/23/20 06:17: POC Glucose 96 01/23/20 10:53: POC Glucose 222 H Current Medications Albuterol Sulfate (Albuterol Sulfate Hfa 6.7 Gm Inhaler (200 Puffs)) 2 puff IH Q6H PRN PRN PRN Reason: SOB &/or Wheezing Alprazolam (Alprazolam 0.5 Mg Tablet) 0.5 mg PO TID PRN PRN PRN Reason: ANXIETY Last Admin: 01/23/20 06:21 Dose: 0.5 mg Documented by: Amlodipine Besylate (Amlodipine 10 Mg Tablet) 10 mg PO DAILY [facility] Last Admin: 01/23/20 06:25 Dose: 10 mg Documented by: Apixaban (Apixaban 5 Mg Tablet) 5 mg PO BID [facility] Last Admin: 01/23/20 06:25 Dose: 5 mg Documented by: Atorvastatin Calcium (Atorvastatin Calcium 80 Mg Tablet) 80 mg PO QHS [facility] [place] Last Admin: 01/22/20 22:02 Dose: 80 mg Documented by: Baclofen (Baclofen 10 Mg Tablet) 10 mg PO TID [facility] Last Admin: 01/23/20 06:25 Dose: 10 mg Documented by: Buspirone HCl (Buspirone 15 Mg Tablet) 30 mg PO BID [facility] Last Admin: 01/23/20 06:25 Dose: 30 mg Documented by: Calamine/Phenol (Menthol/Lanolin/Calamine/Znox 113 Gm Tube) 1 applic TOPICAL BID [facility] [place]; Protocol Last Admin: 01/23/20 06:29 Dose: Not Given Documented by: Furosemide (Furosemide 20 Mg Tablet) 20 mg PO DAILY [facility] [place] Last Admin: 01/23/20 06:25 Dose: 20 mg Documented by: Heparin Sodium (Beef Lung) (Heparin Pf Lock 10 Units/Ml 50 Units/5 Ml Syringe) 50 units IV UD PRN PRN Reason: PICC Line Heparin Flush Hydromorphone HCl (Hydromorphone 2 Mg Tablet) 2 mg PO Q3H PRN PRN PRN Reason: Pain Score 6-10 Last Admin: 01/23/20 10:51 Dose: 2 mg Documented by: Vancomycin IV Pharmacy to Dose (1 ea/ Sodium Chloride) 500 mls @ 250 mls/hr IV X1 PRN; Protocol PRN Reason: Rx to Dose Vancomycin HCl (Vancomycin) 1,000 mg in 200 mls @ 200 mls/hr IV Q12H [facility] [place] Last Infusion: 01/23/20 12:26 Dose: Infused Documented by: Insulin Glargine (Insulin Glargine 100 Units/Ml Pen) 40 units SC BID [facility] [place] Last Admin: 01/23/20 06:28 Dose: Not Given Documented by: Insulin Human Lispro (Insulin Lispro 100 Unit/Ml Insuln.Pen) 5 unit SC TIDAC [facility] [place] Last Admin: 01/23/20 11:43 Dose: 5 units Documented by: Lactic Acid (Ammonium Lactate 225 Gm Bottle) 1 applic TOPICAL DAILY [facility]; Protocol Last Admin: 01/23/20 11:41 Dose: 1 applicatio Documented by: Lactobacillus Acidophilus (Lactobacillus Acidophilus) 2 tablet PO BID [facility] Last Admin: 01/23/20 06:24 Dose: 2 tablet Documented by: Lisinopril (Lisinopril 20 Mg Tablet) 20 mg PO [facility] Last Admin: 01/22/20 22:01 Dose: 20 mg Documented by: Metoprolol Tartrate (Metoprolol Tartrate 50 Mg Tablet) 50 mg PO DAILY [facility] Last Admin: 01/23/20 06:25 Dose: 50 mg Documented by: Mirabegron (Mirabegron 25 Mg Tab.Er.24h) 25 mg PO DAILY [facility] Last Admin: 01/23/20 06:24 Dose: 25 mg Documented by: Montelukast Sodium (Montelukast 10 Mg Tablet) 10 mg PO HS [facility] [place] Last Admin: 01/22/20 22:01 Dose: 10 mg Documented by: Nicotine (Nicotine 21 Mg Patch) 21 mg TRANSDERM. DAILY [facility] Last Admin: 01/23/20 06:26 Dose: 21 mg Documented by: Nitroglycerin (Nitroglycerin (Inpatient Use) 0.4 Mg Tab.Subl) 0.4 mg SUBLINGUAL Q5M PRN PRN Reason: CARDIAC/CHEST PAIN Nystatin (Nystatin Powder 15gm Bottle) 1 applic TOPICAL BID [facility] [place]; Protocol Last Admin: 01/23/20 06:29 Dose: 1 applicatio Documented by: Polyethylene Glycol (Polyethylene Glycol 3350 17 Gm Packet) 17 gm PO BID [facility] [place] Last Admin: 01/23/20 06:24 Dose: 17 gm Documented by: Potassium Chloride (Potassium Chloride 10 Meq Tablet) 10 meq PO DAILYCM [facility] Last Admin: 01/23/20 09:07 Dose: 10 meq Documented by: Pregabalin (Pregabalin 75 Mg Capsule) 75 mg PO TID [facility] [place] Last Admin: 01/23/20 06:21 Dose: 75 mg Documented by: Promethazine HCl (Promethazine 25 Mg Tablet) 12.5 mg PO Q6H PRN PRN PRN Reason: NAUSEA/VOMITING Last Admin: 01/17/20 08:48 Dose: 12.5 mg Documented by: Risperidone (Risperidone 1 Mg Tablet) 4 mg PO QHS [facility] [place] Last Admin: 01/22/20 22:01 Dose: 4 mg Documented by: Fluticasone/Salmeterol (Fluticasone/Salmeterol 232-14 Inhaler) 2 puff IH Q12 [facility] Last Admin: 01/23/20 06:22 Dose: 2 puff Documented by: Senna/Docusate Sodium (Senna/Docusate Sodium 1 Tablet) 2 tablet PO BID [facility] [place] Last Admin: 01/23/20 06:23 Dose: 2 tablet Documented by: Sodium Chloride (0.9% Normal Saline 250 Ml Iv.Soln.) 250 ml IV BID PRN PRN PRN Reason: SALINE FLUSH Last Admin: 01/23/20 10:50 Dose: 250 ml Documented by: Sodium Chloride (0.9% Saline Lock 10 Ml Syringe) 10 - 40 ml IV UD PRN PRN Reason: SALINE FLUSH Last Admin: 01/23/20 10:50 Dose: 20 ml Documented by: Sodium Chloride (0.9% Saline Lock 10 Ml Syringe) 10 - 40 ml IV UD PRN PRN Reason: Open End PICC Flush Sodium Chloride (0.9 % Nacl (Sterile) Posiflush 10 Ml) 10 - 40 ml IV UD PRN PRN Reason: Port access or dressing change Sodium Hypochlorite (Dakin's Brittany Half Strength (=0.25%)) 1 applic TOPICAL DAILY@1000 [facility]; Protocol Last Admin: 01/23/20 11:42 Dose: 1 applicatio Documented by: Sucralfate (Sucralfate 1 Gm Tablet) 1 gm PO 1HR_ACHS [facility] [place] Last Admin: 01/23/20 11:43 Dose: 1 gm Documented by: Tizanidine HCl (Tizanidine Hcl 2 Mg Tablet) 6 mg PO Q8H PRN PRN PRN Reason: SPASMS Last Admin: 01/22/20 17:56 Dose: 6 mg Documented by: Tramadol HCl (Tramadol 50 Mg Tablet) 50 mg PO Q6H PRN PRN PRN Reason: Pain Score 1-5 Last Admin: 01/23/20 09:07 Dose: 50 mg Documented by: Trazodone HCl (Trazodone 50 Mg Tablet) 200 mg PO QHS [facility] [place] Last Admin: 01/22/20 22:01 Dose: 200 mg Documented by: Umeclidinium Wise (Umeclidinium Wise Inhaler) 2 puff IH DAILY [facility] [place] Last Admin: 01/23/20 06:23 Dose: 2 puff Documented by: Medical Necessity - Tobacco Use Smoking Status: Current every day smoker Tobacco Use: Cigarettes Assessment/Plan All Active Problems (Last Reviewed 01/22/20 @ 11:[address] Tanner Salgado MD) PAD (peripheral artery disease) (Acute) Other specified peripheral vascular diseases (Acute) Cellulitis of left lower extremity (Acute) Difficulty in walking, not elsewhere classified (Acute) Syncope (Acute) Closed left ankle fracture (Acute) Debility (Acute) Fall (Acute) Diarrhea (Resolved) Hypokalemia (Resolved) Left trimalleolar ankle fracture/Charcot neuroarthropathy s/p ORIF on 12/23/2019 Lateral ankle ulceration down to subcutaneous tissue with cellulitis resolving Uncontrolled Diabetes Tobacco use Multiple comorbidities vascular impairment I reviewed and discussed her case. She is afebrile and vitals are stable. Labs reviewed without gross abnormalities earlier this week. Wound site and leg look much improved today. Reviewed culture results, growing staph epi multiple resistances. The most appropriate antibiotic choice at this time is vancomycin, infectious disease is on consult. She is starting to improve clinically and I recommend continuation. There is no purulence noted today. Sharp excisional nonselective debridement of left lateral ankle ulceration at site of incision into the level of sub q was carried out with a #15 blade without incident with removal of devitalized tissue. Predebridement measure 11.5x0.4x0.2cm and post debridement 11.7x0.6x0.3cm. To change dressing daily with aquacel Ag, then gauze, kerlix and lukas and well padded below knee splint. To moisturize adjacent skin with Lac-Hydrin. Surgical site was evaluated with a new dressing was applied this morning. Strict nonweightbearing left foot/ankle, keep foot elevated. Keep left heel offloaded with pillow. Keep lateral ankle offloaded at all times - discussed with patient on the importance of this. Consult placed for Dr Salgado in vascular surgery to assess healing potential. He reports no intervention necessary at this time. Vascular studies show Right TBI 0.94, Left TBI 0.67. Right and left DP have triphasic waveforms. 20-49% stenosis to left LE arteries Continue with pain management for post operative pain control. Vitamin D lab is low - continue vitamin D supplementation, 2000 units daily. Patient ok to DC from podiatry standpoint. Patient will require [facility] for dressing changes noted above. Patient will also require close follow up. She should follow up with Dr Mitchell [facility] within 1 week of DC. Patient is to remain NWB to left foot. Social work consulted for safe discharge planning. Medical management and DVT prophylaxis per Dr. Monae is appreciated. Podiatry will continue to follow biweekly while in the transitional care unit. Please do not hesitate to call if you have any questions.
--- NOTE | 2020-01-23 13:47 | DCINST_ITS ---
Discharge Diet: No Restrictions Discharge Activity: May Shower, Use Walker, - - NWB to left foot, patient has knee scooter she can use Weight Bearing Status: No weight bearing Keep extremity elevated above heart level: Left Leg Call your doctor if your incision/area has: Sudden Increased Bleeding, Increased Pain/ Swelling, Increased Redness, Foul Smelling Discharge Call your doctor if you observe: Fever of 101 or Higher, Inability to urinate, Inability to have a bowel movement, Shortness of breath, Chest pain, Uncontrolled pain Change Dressing in (Days):: 1 Cleanse incision/area with: Keep Dressing Clean & Dry, - - Clean with dakins. Change daily with aquacell along wound, moisturize rest of leg, aply 4x4, kerlix, lukas, cast padding, posterior splint, lukas wraps. per [facility] Allergies/Adverse Reactions: Allergies amoxicillin Allergy (Verified 01/14/20 19:14) Itching erythromycin base Allergy (Verified 01/14/20 19:14) Unknown methadone Allergy (Verified 01/14/20 19:14) Itching metolazone Allergy (Verified 01/14/20 19:14) Unknown Penicillins Allergy (Verified 01/14/20 19:14) Hives Sulfa (Sulfonamide Antibiotics) Allergy (Verified 01/14/20 19:14) Hives acetaminophen [From Percocet] Adverse Reaction (Verified 01/14/20 19:14) Itching clarithromycin [From Biaxin] Adverse Reaction (Verified 01/14/20 19:14) Nausea ibuprofen Adverse Reaction (Verified 01/14/20 19:14) 3 BLEEDING ULCERS 3 BLEEDING ULCERS morphine Adverse Reaction (Verified 01/14/20 19:14) HEADACHE HEADACHE oxycodone [From Percocet] Adverse Reaction (Verified 01/14/20 19:14) Itching Medications to take at Discharge Atorvastatin Calcium [Lipitor] 80 mg PO QHS 08/22/15 Metoprolol(XL)Succ [Toprol Xl (Beta Trino)] 50 mg PO DAILY 08/22/15 Nitroglycerin 0.4 mg SL PRN PRN 11/08/16 amlodipine 10 mg tablet 10 mg PO DAILY tab 05/02/17 potassium chloride 10 mEq tablet,extended release(part/cryst) 10 meq PO DAILY #60 tab 06/16/17 Pregabalin [Lyrica] 75 mg PO TID 03/08/18 Risperidone 4 mg PO QHS 03/08/18 Tizanidine HCl 6 mg PO TID PRN PRN 03/08/18 traZODone [Desyrel] 200 mg PO QHS 03/08/18 Furosemide [Lasix] 20 mg PO DAILY 11/20/18 Lisinopril 20 mg PO QHS 11/20/18 Mirabegron [Myrbetriq] 25 mg PO DAILY 11/20/18 Apixaban [Eliquis] 5 mg PO BID 05/02/19 Fluticasone/Salmeterol [Advair Hfa 230-21 Mcg Inhaler] 2 puff INHALATION DAILY 05/02/19 albuterol sulfate 90 mcg/actuation aerosol inhaler 2 puff INHALATION Q6H PRN 06/27/19 buspirone 30 mg tablet 30 mg PO BID tab 06/27/19 sucralfate 1 gram tablet 1 g PO QACHS 06/27/19 Nystatin [Nystop] 1 applic TP 4X/DAY 08/22/19 proMETHazine tablet [Phenergan tablet] 12.5 - 25 mg PO BID PRN PRN 08/22/19 tiotropium bromide 2.5 mcg/actuation mist for inhalation 2 puff INHALATION DAILY #4 g 09/30/19 montelukast 10 mg tablet 10 mg PO QHS #30 tab 10/30/19 albuterol sulfate 2.5 mg INHALATION Q4H PRN #180 ml 12/11/19 Lactobacillus Acidophilus [Acidophilus] 2 tab PO BID 12/16/19 Insulin Glargine [Lantus SoloStar Pen] 40 units SC BID 12/18/19 Nicotine [Nicoderm Cq] 21 mg TRANSDERM. DAILY 12/18/19 Apixaban [Eliquis] 5 mg PO BID tab 01/02/20 HYDROmorphone tablet [Dilaudid] 2 mg PO Q3H PRN PRN 3 Days #18 tab 01/02/20 Hydrocortisone 2.5% Crm [Hytone] 1 applic TOPICAL TID PRN PRN #1 tube 01/02/20 Menthol/Lanolin/Calamine/Znox [Calmoseptine Ointment] 1 applic TOPICAL BID tube 01/02/20 traMADol [Ultram] 50 mg PO Q6H PRN PRN 3 Days #12 tab 01/02/20 The following prescriptions were given: HYDROmorphone tablet [Dilaudid] 2 mg PO Q3H PRN PRN 3 Days #18 tab PRN Reason: Pain Score 4-5 Transmission Status: Received by [place] [id number] Hydrocortisone 2.5% Crm [Hytone] 1 applic TOPICAL TID PRN PRN #1 tube PRN Reason: Itching Transmission Status: Received by [place] [id number] traMADol [Ultram] 50 mg PO Q6H PRN PRN 3 Days #12 tab PRN Reason: Pain Score 1-5 Transmission Status: Received by [place] [id number] Primary Care Physician: Janel Taylor MD [Primary Care Provider] - Please follow up with your Primary Care Physician in: 1 week. Test Results: Test results from this visit will be discussed in further detail at your follow- up appointment, if applicable. Please Follow Up With: Janel Taylor MD (PCP) When: 1 week. Please Follow Up With: Ge Mitchell DPM When: 1 week Proposed Discharge Date: 01/07/20
[2020-01-23 14:29] VITALS: BP 142/72; PULSE 66; RESP 18; TEMP 36.4; O2SAT 99
[2020-01-23 17:05] LABS: Bedside Glucose 155 mg/dL (70-110)
[2020-01-23] MEDS: tiZANidine HCl 2 MG Tablet 6 MG PO (19:47)
[2020-01-23 21:26] LABS: Bedside Glucose 166 mg/dL (70-110)
[2020-01-23] MEDS: Lisinopril 20 MG Tablet PO (21:27)
[2020-01-23] MEDS: traZODone 50 MG Tablet 200 MG PO (21:27)
[2020-01-23] MEDS: Atorvastatin Calcium 80 MG Tablet PO (21:28)
[2020-01-23] MEDS: RisperiDONE 1 MG Tablet 4 MG PO (21:28)
[2020-01-23] MEDS: Montelukast 10 MG Tablet PO (21:29)
[2020-01-23 23:43] LABS: Vancomycin, Trough Level 11.1 ug/mL (5.0-15.0)
--- NOTE | 2020-01-24 01:34 | PHA.PHARE_ITS ---
Consult Pharmacy has been consulted to manage selected antiobiotic: Vancomycin Type of Consult: Follow-up Labs: Sodium 139 mmol/L (136-145) 01/22/20 05:10 Potassium 3.8 mmol/L (3.5-5.1) 01/22/20 05:10 Chloride 105 mmol/L (98-107) 01/22/20 05:10 Carbon Dioxide 31.0 mmol/L (21.0-32.0) 01/22/20 05:10 Anion Gap 3 (5-15) L 01/22/20 05:10 BUN 8 mg/dL (7-18) 01/22/20 05:10 Creatinine 0.78 mg/dL (0.55-1.02) 01/22/20 05:10 Est GFR (MDRD) Af Amer 99 mL/min (>60) 01/22/20 05:10 Est GFR (MDRD) Non-Af 82 mL/min (>60) 01/22/20 05:10 BUN/Creatinine Ratio 10.3 RATIO (-) 01/22/20 05:10 Glucose 108 mg/dL (74-106) H 01/22/20 05:10 Vancomycin Trough 11.1 ug/mL (5.0-15.0) 01/23/20 23:05 Microbiology: Microbiology 01/13/20 Unknown Mucosa - Nose Respiratory Syncytial Virus Ag Scrn - Final 01/06/20 19:05 Wound Abcess - No Site/Description Given Gram Stain - Final 01/06/20 19:05 Wound Abcess - No Site/Description Given Wound Culture - F inal Staphylococcus epidermidis Staphylococcus epidermidis#2 01/06/20 19:05 Wound Abcess - No Site/Description Given Anaerobic Culture - Final No anaerobic bacteria isolated. 12/30/19 10:45 Mucosa - Nose - Final 12/23/19 22:47 Blood Culture (Wb) - Left Hand Blood Culture - Final No growth in 5 days. 12/23/19 23:00 Blood Culture (Wb) - No Site/Description Given Blood Culture - Final No growth in 5 days. Goal Trough: 10-15 mcg/mL Pharmacy Plan for Drug Dosing: Pharmacy Service will continue to monitor and adjust dosing as required. TROUGH 11.1 NO CHANGES REDRAW TROUGH IN 4 DAYS PER PROTOCOL Follow-Up Labs: Trough Vancomycin Labs to be done on [date and time ordered]: 01/26 @ 4548
[2020-01-24 06:15] LABS: Absolute Lymphocyte Count 1.47 X10^3/uL (0.83-4.51); Absolute Neutrophil Count 8.7 X10^3/uL (2.0-7.7); Basophil# 0.14 X10^3/uL; Basophil% 1.2 % (0-1); Eosinophil# 0.33 X10^3/uL; Eosinophils% 2.8 % (0-5); Hematocrit 39.3 % (37-47); Hemoglobin 12.4 g/dL (12.0-15.0); Lymphocyte # 1.47 X10^3/ul (4.0); Lymphocyte % 12.6 % (19-41); Mean Corp Hgb Conc 31.6 g/dL (32-36); Mean Corpuscular Hgb 27.5 pg (27.0-32.0); Mean Corpuscular Volume 87.1 fL (81-99); Mean Platelet Vol. 10.2 fl (6.2-12.0); Monocyte# 0.96 X10^3/uL; Monocyte% 8.2 % (0-10); NRBC Flagged by Analyzer 0 % (0-5); Neutrophil # 8.71 X10^3/uL (2.7-7.7); Neutrophil % 74.8 % (47-70); Platelet Count 321 K/mm3 (150-450); RBC Distribution Width CV 15.1 % (11.6-14.6); RBC Distribution Width SD 48.6 fl (35.1-43.9); Red Blood Count 4.51 M/mm3 (4.2-5.4); White Blood Count 11.7 K/mm3 (4.4-11.0)
[2020-01-24 06:24] VITALS: BP 140/62; PULSE 73; RESP 16; TEMP 36.3; O2SAT 96
[2020-01-24] MEDS: Polyethylene Glycol 3350 17 GM PACKET PO ×2 (06:28→17:41)
[2020-01-24] MEDS: HYDROmorphone 2 MG TABLET PO ×4 (06:28→20:44)
[2020-01-24] MEDS: Pregabalin 75 MG Capsule PO ×3 (06:28→20:53)
[2020-01-24] MEDS: Senna/Docusate Sodium 1 Tablet 2 TABLET PO ×2 (06:29→17:39)
[2020-01-24] MEDS: Furosemide 20 MG Tablet PO (06:29)
[2020-01-24] MEDS: Baclofen 10 MG Tablet PO ×3 (06:29→20:48)
[2020-01-24] MEDS: Sucralfate 1 GM Tablet PO ×4 (06:29→20:48)
[2020-01-24] MEDS: amLODIPine 10 MG Tablet PO (06:29)
[2020-01-24] MEDS: Mirabegron 25 MG TAB.ER.24H PO (06:29)
[2020-01-24] MEDS: busPIRone 15 MG TABLET 30 MG PO ×2 (06:29→17:40)
[2020-01-24 06:30] VITALS: BP 140/62; PULSE 73
[2020-01-24 06:30] LABS: Bedside Glucose 106 mg/dL (70-110)
[2020-01-24] MEDS: Metoprolol Tartrate 50 MG Tablet PO (06:30)
[2020-01-24] MEDS: APIXABAN 5 MG TABLET PO ×2 (06:30→17:39)
[2020-01-24] MEDS: Umeclidinium Bromide Inhaler 2 PUFF IH (06:34)
[2020-01-24] MEDS: Fluticasone/Salmeterol 232-14 Inhaler 2 PUFF IH ×2 (06:35→17:45)
[2020-01-24 06:37] LABS: Anion Gap 2 (5-15); BUN 8 mg/dL (7-18); BUN/Creat Ratio 12.3 RATIO (10-20); Calcium,Total 10.4 mg/dL (8.5-10.1); Chloride 107 mmol/L (98-107); Creatinine, Serum 0.65 mg/dL (0.55-1.02); EST Glomerular Filtration Rate 101 mL/min (>60); Est Glom Filt Rate - Afr Amer 122 mL/min (>60); Estimated Creatinine Clearance 81.85 ml/min; Glucose 109 mg/dL (74-106); Potassium 3.9 mmol/L (3.5-5.1); Sodium Level 139 mmol/L (136-145)
[2020-01-24] MEDS: ALPRAZolam 0.5 MG Tablet PO ×2 (06:41→17:37)
[2020-01-24] MEDS: traMADol 50 MG Tablet PO ×2 (09:17→18:34)
[2020-01-24] MEDS: tiZANidine HCl 2 MG Tablet 6 MG PO (09:18)
--- NOTE | 2020-01-24 10:23 | CASEMGMT ---
Social Work Spoke with pt about DC plans. Pt stated Dr. Smith reported pt can DC home if there is assistance in the home. MAURO spoke with Dr. Escobar as well whom stated the pt will continue to have the IV ATB throughout stay but he will change to P.O. at DC. Pt requesting to DC by the holiday. MAURO left two messages with [facility] to inquire about getting services restarted and possibly increased. Contacted [facility]is [facility] to inquire about additional services pt is eligible for. Liz explained insurance will cover at no cost to pt a [employer] and she can have the choice for a personal home helper as well. Liz provided this worker with the proper paperwork to complete. Spoke with pt about eligible services. Pt very pleased and agreed to [employer] and extra home helper. Submitted proper paperwork with estimated DC 01/28. Will await return call from [facility] to confirm start of service and possible DC. Soraya Petersen, [employer]
--- NOTE | 2020-01-24 10:44 | NURSING ---
Pt refused her Lantus and Humolog this AM. Afternoon blood sugars 279 Dr. Monae made aware.
[2020-01-24 10:46] LABS: Bedside Glucose 279 mg/dL (70-110)
[2020-01-24] MEDS: 0.9% Normal Saline 250 ML IV.SOLN. IV (11:16)
[2020-01-24] MEDS: Vancomycin IV 1,000 MG/200 ML BAG 200 MG IV ×2 (11:22→23:04)
[2020-01-24] MEDS: Insulin Lispro 100 UNIT/ML INSULN.PEN SC ×2 (11:26→17:41)
[2020-01-24 13:50] VITALS: PULSE 66; RESP 18; O2SAT 99
[2020-01-24] MEDS: Ammonium Lactate 225 gm Bottle 1 APPLIC TOPICAL (13:58)
[2020-01-24] MEDS: DAKIN'S SOL HALF STRENGTH (=0.25%) 1 APPLIC TOPICAL (13:58)
--- NOTE | 2020-01-24 15:20 | NURSING ---
Pt stated we do not need to update her family at this time she talked to them today.
[2020-01-24 16:00] VITALS: BP 143/59; PULSE 60; RESP 16; TEMP 36.6; O2SAT 99
[2020-01-24 16:36] LABS: Bedside Glucose 158 mg/dL (70-110)
[2020-01-24] MEDS: Nystatin Powder 15gm Bottle 1 APPLIC TOPICAL (17:45)
[2020-01-24] MEDS: Menthol/Lanolin/Calamine/Znox 113 GM Tube 1 APPLIC TOPICAL (17:46)
[2020-01-24] MEDS: RisperiDONE 1 MG Tablet 4 MG PO (20:47)
[2020-01-24] MEDS: Lisinopril 20 MG Tablet PO (20:49)
[2020-01-24] MEDS: Montelukast 10 MG Tablet PO (20:49)
[2020-01-24] MEDS: traZODone 50 MG Tablet 200 MG PO (20:50)
[2020-01-24] MEDS: Atorvastatin Calcium 80 MG Tablet PO (20:51)
[2020-01-24 21:16] LABS: Bedside Glucose 182 mg/dL (70-110)
[2020-01-24] MEDS: 0.9% Saline Lock 10 ML Syringe IV (23:02)
[2020-01-25 06:31] LABS: Bedside Glucose 165 mg/dL (70-110)
[2020-01-25 06:37] VITALS: BP 124/74; PULSE 87; RESP 16; TEMP 37; O2SAT 96
[2020-01-25] MEDS: ALPRAZolam 0.5 MG Tablet PO (06:38)
[2020-01-25] MEDS: Pregabalin 75 MG Capsule PO ×3 (06:38→21:54)
[2020-01-25] MEDS: HYDROmorphone 2 MG TABLET PO ×5 (06:38→21:48)
[2020-01-25] MEDS: Polyethylene Glycol 3350 17 GM PACKET PO ×2 (06:39→16:47)
[2020-01-25] MEDS: Fluticasone/Salmeterol 232-14 Inhaler 2 PUFF IH ×2 (06:42→16:48)
[2020-01-25] MEDS: Umeclidinium Bromide Inhaler 2 PUFF IH (06:42)
[2020-01-25] MEDS: Menthol/Lanolin/Calamine/Znox 113 GM Tube 1 APPLIC TOPICAL ×2 (06:42→16:52)
[2020-01-25] MEDS: Ammonium Lactate 225 gm Bottle 1 APPLIC TOPICAL (06:44)
[2020-01-25] MEDS: Senna/Docusate Sodium 1 Tablet 2 TABLET PO ×2 (06:44→16:48)
[2020-01-25 06:45] VITALS: BP 124/74; PULSE 87
[2020-01-25] MEDS: busPIRone 15 MG TABLET 30 MG PO ×2 (06:45→16:47)
[2020-01-25] MEDS: Metoprolol Tartrate 50 MG Tablet PO (06:45)
[2020-01-25] MEDS: amLODIPine 10 MG Tablet PO (06:45)
[2020-01-25] MEDS: Mirabegron 25 MG TAB.ER.24H PO (06:45)
[2020-01-25] MEDS: Sucralfate 1 GM Tablet PO ×4 (06:46→21:52)
[2020-01-25] MEDS: Baclofen 10 MG Tablet PO ×3 (06:46→21:50)
[2020-01-25] MEDS: Nystatin Powder 15gm Bottle 1 APPLIC TOPICAL ×2 (06:46→16:52)
[2020-01-25] MEDS: APIXABAN 5 MG TABLET PO ×2 (06:46→16:48)
[2020-01-25] MEDS: Furosemide 20 MG Tablet PO (06:46)
[2020-01-25] MEDS: traMADol 50 MG Tablet PO (08:40)
[2020-01-25] MEDS: Insulin Lispro 100 UNIT/ML INSULN.PEN SC ×3 (08:42→17:59)
[2020-01-25] MEDS: Vancomycin IV 1,000 MG/200 ML BAG 200 MG IV ×2 (10:56→22:01)
[2020-01-25] MEDS: 0.9% Saline Lock 10 ML Syringe IV ×2 (10:56→22:01)
[2020-01-25 11:20] LABS: Bedside Glucose 214 mg/dL (70-110)
[2020-01-25 13:32] VITALS: PULSE 67; RESP 18; O2SAT 95
[2020-01-25 14:21] VITALS: BP 127/63; PULSE 65; RESP 19; TEMP 36.7; O2SAT 94
[2020-01-25] MEDS: DAKIN'S SOL HALF STRENGTH (=0.25%) 1 APPLIC TOPICAL (14:57)
[2020-01-25 16:16] VITALS: O2SAT 94
[2020-01-25 17:25] LABS: Bedside Glucose 157 mg/dL (70-110)
[2020-01-25 21:35] LABS: Bedside Glucose 197 mg/dL (70-110)
[2020-01-25] MEDS: RisperiDONE 1 MG Tablet 4 MG PO (21:49)
[2020-01-25] MEDS: Atorvastatin Calcium 80 MG Tablet PO (21:50)
[2020-01-25] MEDS: traZODone 50 MG Tablet 200 MG PO (21:51)
[2020-01-25] MEDS: Montelukast 10 MG Tablet PO (21:51)
[2020-01-25] MEDS: Lisinopril 20 MG Tablet PO (21:52)
[2020-01-25] MEDS: 0.9% Normal Saline 250 ML IV.SOLN. IV (22:02)
[2020-01-26] MEDS: HYDROmorphone 2 MG TABLET PO ×6 (02:08→20:54)
[2020-01-26 06:01] VITALS: BP 149/68; PULSE 86; RESP 16; TEMP 36.3; O2SAT 99
[2020-01-26] MEDS: Pregabalin 75 MG Capsule PO ×3 (06:02→20:17)
[2020-01-26] MEDS: Fluticasone/Salmeterol 232-14 Inhaler 2 PUFF IH ×2 (06:03→17:41)
[2020-01-26] MEDS: Umeclidinium Bromide Inhaler 2 PUFF IH (06:03)
[2020-01-26] MEDS: Polyethylene Glycol 3350 17 GM PACKET PO (06:05)
[2020-01-26] MEDS: busPIRone 15 MG TABLET 30 MG PO ×2 (06:06→17:39)
[2020-01-26 06:07] VITALS: BP 149/68; PULSE 86
[2020-01-26] MEDS: Mirabegron 25 MG TAB.ER.24H PO (06:07)
[2020-01-26] MEDS: Sucralfate 1 GM Tablet PO ×4 (06:07→20:20)
[2020-01-26] MEDS: Metoprolol Tartrate 50 MG Tablet PO (06:07)
[2020-01-26] MEDS: Baclofen 10 MG Tablet PO ×3 (06:07→20:19)
[2020-01-26] MEDS: Senna/Docusate Sodium 1 Tablet 2 TABLET PO (06:07)
[2020-01-26] MEDS: amLODIPine 10 MG Tablet PO (06:07)
[2020-01-26] MEDS: Furosemide 20 MG Tablet PO (06:07)
[2020-01-26] MEDS: APIXABAN 5 MG TABLET PO ×2 (06:08→17:40)
[2020-01-26] MEDS: Nystatin Powder 15gm Bottle 1 APPLIC TOPICAL ×2 (06:11→17:41)
[2020-01-26] MEDS: Menthol/Lanolin/Calamine/Znox 113 GM Tube 1 APPLIC TOPICAL ×2 (06:15→17:41)
[2020-01-26 06:36] LABS: Bedside Glucose 143 mg/dL (70-110)
[2020-01-26] MEDS: proMETHazine 25 MG Tablet 12.5 MG PO (08:22)
[2020-01-26] MEDS: Insulin Lispro 100 UNIT/ML INSULN.PEN SC ×3 (08:47→17:42)
[2020-01-26] MEDS: Vancomycin IV 1,000 MG/200 ML BAG 200 MG IV ×2 (10:53→22:47)
[2020-01-26] MEDS: 0.9% Saline Lock 10 ML Syringe IV ×2 (10:54→22:48)
[2020-01-26 11:01] LABS: Bedside Glucose 269 mg/dL (70-110)
[2020-01-26] MEDS: ALPRAZolam 0.5 MG Tablet PO (11:03)
[2020-01-26 14:13] VITALS: BP 147/62; PULSE 72; RESP 15; TEMP 36.5; O2SAT 94
[2020-01-26] MEDS: traMADol 50 MG Tablet PO (15:49)
[2020-01-26 16:51] LABS: Bedside Glucose 181 mg/dL (70-110)
--- NOTE | 2020-01-26 17:48 | NURSING ---
assisting pt to BSC & pt yelled out out that hurt as she sat down on BSC, pt pinched posterior rt thigh on toilet seat of BSC. bleeding noted, small abrasion approximately 2 cm x 0.1. cleaned & applied mepilex 4x4. pt assisted back to bed Stand pivot transfer.
[2020-01-26] MEDS: Ammonium Lactate 225 gm Bottle 1 APPLIC TOPICAL (20:17)
[2020-01-26] MEDS: DAKIN'S SOL HALF STRENGTH (=0.25%) 1 APPLIC TOPICAL (20:18)
[2020-01-26] MEDS: traZODone 50 MG Tablet 200 MG PO (20:19)
[2020-01-26] MEDS: RisperiDONE 1 MG Tablet 4 MG PO (20:20)
[2020-01-26] MEDS: Atorvastatin Calcium 80 MG Tablet PO (20:20)
[2020-01-26] MEDS: Lisinopril 20 MG Tablet PO (20:21)
[2020-01-26] MEDS: Montelukast 10 MG Tablet PO (20:21)
[2020-01-26 21:41] LABS: Bedside Glucose 180 mg/dL (70-110)
[2020-01-27 06:21] LABS: Bedside Glucose 123 mg/dL (70-110)
[2020-01-27 06:27] VITALS: BP 128/63; PULSE 64; RESP 16; TEMP 36.9; O2SAT 99
[2020-01-27] MEDS: Fluticasone/Salmeterol 232-14 Inhaler 2 PUFF IH ×2 (06:33→17:41)
[2020-01-27] MEDS: Pregabalin 75 MG Capsule PO ×3 (06:33→21:08)
[2020-01-27] MEDS: HYDROmorphone 2 MG TABLET PO ×4 (06:33→21:08)
[2020-01-27 06:37] VITALS: BP 128/63; PULSE 64
[2020-01-27] MEDS: Senna/Docusate Sodium 1 Tablet 2 TABLET PO (06:37)
[2020-01-27] MEDS: Metoprolol Tartrate 50 MG Tablet PO (06:37)
[2020-01-27] MEDS: Furosemide 20 MG Tablet PO (06:37)
[2020-01-27] MEDS: amLODIPine 10 MG Tablet PO (06:37)
[2020-01-27] MEDS: Mirabegron 25 MG TAB.ER.24H PO (06:38)
[2020-01-27] MEDS: Baclofen 10 MG Tablet PO ×3 (06:38→21:04)
[2020-01-27] MEDS: APIXABAN 5 MG TABLET PO ×2 (06:38→17:43)
[2020-01-27] MEDS: Sucralfate 1 GM Tablet PO ×4 (06:38→21:03)
[2020-01-27] MEDS: Menthol/Lanolin/Calamine/Znox 113 GM Tube 1 APPLIC TOPICAL ×2 (06:43→17:38)
[2020-01-27] MEDS: Umeclidinium Bromide Inhaler 2 PUFF IH (06:43)
[2020-01-27] MEDS: Nystatin Powder 15gm Bottle 1 APPLIC TOPICAL ×2 (06:44→17:38)
[2020-01-27] MEDS: Polyethylene Glycol 3350 17 GM PACKET PO ×2 (06:44→16:45)
[2020-01-27 06:50] VITALS: O2SAT 99
--- NOTE | 2020-01-27 07:19 | NURSING ---
sLEPT WELL ALL NIGHT, WAS SNORING MOST OF NIGHT, HAD TO AWAKEN TO TAKE MEDS AFTER MEDS GIVEN THIS AM PT STATES CAN I GO BACK TO SLEEP NOW PT WAS MED FOR PAIN PER REQUEST '
[2020-01-27] MEDS: traMADol 50 MG Tablet PO ×2 (07:54→16:43)
[2020-01-27] MEDS: ALPRAZolam 0.5 MG Tablet PO (07:54)
[2020-01-27] MEDS: Insulin Lispro 100 UNIT/ML INSULN.PEN SC ×3 (07:56→17:39)
--- NOTE | 2020-01-27 07:57 | PN_ITS ---
Patient Problems: Active and Suspected Problems (Last Reviewed 01/22/20 @ 11:[address] Tanner Salgado MD) PAD (peripheral artery disease) (Acute) Cellulitis of left lower extremity (Acute) Syncope (Acute) Closed left ankle fracture (Acute) Debility (Acute) Fall (Acute) Subjective: Patient was seen this morning for follow up on left ankle. She relates to significantly less pain. She has no complaints of fever, chills, nausea or vomiting. She relates she is ready to go home. - Physical Exam Vitals/I&O's: Vital Signs Temp Pulse Resp BP Pulse Ox 98.4 F 64 16 128/63 H 99 01/27/20 06:27 01/27/20 06:37 01/27/20 06:27 01/27/20 06:37 01/27/20 06:27 Oxygen Flow Rate (L/min) 2 Oxygen Delivery Method Nasal Cannula Weight: 109.032 kg Body Mass Index (BMI) 44.2 Finger Stick Blood Glucose 422 Intake and Output for Last 24 Hours 01/25/20 01/26/20 01/27/20 23:59 23:59 23:59 Intake Total 2700 / 2900 680 / 680 Output Total 700 / 700 300 / 300 Balance 2000 / 2200 380 / 380 General: Alert, Oriented x3, Cooperative, No apparent distress Extremities: Capillary Refill Less than 3 Seconds, No Calf Tenderness, - - La teral ankle wound down to subcutaneous tissue w/ noted resolved cellulitis - healing well, increased granular tissue, no necrosis noted. Medial left ankle incision site healed, no new open lesions noted or new areas of break down. No visible abscess to the left foot or ankle. Skin: - - No evidence of ishemia to the left foot or ankle. Laboratory Results 01/26/20 10:30: POC Glucose 269 H 01/26/20 16:34: POC Glucose 181 H 01/26/20 21:36: POC Glucose 180 H 01/27/20 06:04: POC Glucose 123 H Current Medications Albuterol Sulfate (Albuterol Sulfate Hfa 6.7 Gm Inhaler (200 Puffs)) 2 puff IH Q6H PRN PRN PRN Reason: SOB &/or Wheezing Alprazolam (Alprazolam 0.5 Mg Tablet) 0.5 mg PO TID PRN PRN PRN Reason: ANXIETY Last Admin: 01/27/20 07:54 Dose: 0.5 mg Documented by: Amlodipine Besylate (Amlodipine 10 Mg Tablet) 10 mg PO DAILY [facility] Last Admin: 01/27/20 06:37 Dose: 10 mg Documented by: Apixaban (Apixaban 5 Mg Tablet) 5 mg PO BID [facility] Last Admin: 01/27/20 06:38 Dose: 5 mg Documented by: Atorvastatin Calcium (Atorvastatin Calcium 80 Mg Tablet) 80 mg PO QHS [facility] Last Admin: 01/26/20 20:20 Dose: 80 mg Documented by: Baclofen (Baclofen 10 Mg Tablet) 10 mg PO TID [facility] Last Admin: 01/27/20 06:38 Dose: 10 mg Documented by: Buspirone HCl (Buspirone 15 Mg Tablet) 30 mg PO BID [facility] Last Admin: 01/26/20 17:39 Dose: 30 mg Documented by: Calamine/Phenol (Menthol/Lanolin/Calamine/Znox 113 Gm Tube) 1 applic TOPICAL BID [facility]; Protocol Last Admin: 01/27/20 06:43 Dose: 1 applicatio Documented by: Furosemide (Furosemide 20 Mg Tablet) 20 mg PO DAILY [facility] Last Admin: 01/27/20 06:37 Dose: 20 mg Documented by: Heparin Sodium (Beef Lung) (Heparin Pf Lock 10 Units/Ml 50 Units/5 Ml Syringe) 50 units IV UD PRN PRN Reason: PICC Line Heparin Flush Hydromorphone HCl (Hydromorphone 2 Mg Tablet) 2 mg PO Q3H PRN PRN PRN Reason: Pain Score 6-10 Last Admin: 01/27/20 06:33 Dose: 2 mg Documented by: Vancomycin IV Pharmacy to Dose (1 ea/ Sodium Chloride) 500 mls @ 250 mls/hr IV X1 PRN; Protocol PRN Reason: Rx to Dose Vancomycin HCl (Vancomycin) 1,000 mg in 200 mls @ 200 mls/hr IV Q12H [facility] Last Infusion: 01/27/20 00:00 Dose: Infused Documented by: Insulin Glargine (Insulin Glargine 100 Units/Ml Pen) 40 units SC BID [facility] Last Admin: 01/27/20 06:34 Dose: 40 u Documented by: Insulin Human Lispro (Insulin Lispro 100 Unit/Ml Insuln.Pen) 5 unit SC TIDAC [facility] Last Admin: 01/27/20 07:56 Dose: 5 units Documented by: Lactic Acid (Ammonium Lactate 225 Gm Bottle) 1 applic TOPICAL DAILY@1000 [facility]; Protocol Last Admin: 01/26/20 20:17 Dose: 1 applicatio Documented by: Lactobacillus Acidophilus (Lactobacillus Acidophilus) 2 tablet PO BID [facility] Last Admin: 01/27/20 06:37 Dose: 2 tablet Documented by: Lisinopril (Lisinopril 20 Mg Tablet) 20 mg PO HS [facility] Last Admin: 01/26/20 20:21 Dose: 20 mg Documented by: Metoprolol Tartrate (Metoprolol Tartrate 50 Mg Tablet) 50 mg PO DAILY [facility] Last Admin: 01/27/20 06:37 Dose: 50 mg Documented by: Mirabegron (Mirabegron 25 Mg Tab.Er.24h) 25 mg PO DAILY [facility] Last Admin: 01/27/20 06:38 Dose: 25 mg Documented by: Montelukast Sodium (Montelukast 10 Mg Tablet) 10 mg PO HS [facility] Last Admin: 01/26/20 20:21 Dose: 10 mg Documented by: Nicotine (Nicotine 21 Mg Patch) 21 mg TRANSDERM. DAILY [facility] Last Admin: 01/27/20 06:44 Dose: 21 mg Documented by: Nitroglycerin (Nitroglycerin (Inpatient Use) 0.4 Mg Tab.Subl) 0.4 mg SUBLINGUAL Q5M PRN PRN Reason: CARDIAC/CHEST PAIN Nystatin (Nystatin Powder 15gm Bottle) 1 applic TOPICAL BID [facility]; Protocol Last Admin: 01/27/20 06:44 Dose: 1 applicatio Documented by: Polyethylene Glycol (Polyethylene Glycol 3350 17 Gm Packet) 17 gm PO BID [facility] Last Admin: 01/27/20 06:44 Dose: 17 gm Documented by: Potassium Chloride (Potassium Chloride 10 Meq Tablet) 10 meq PO DAILYCM [facility] Last Admin: 01/27/20 07:55 Dose: 10 meq Documented by: Pregabalin (Pregabalin 75 Mg Capsule) 75 mg PO TID [facility] Last Admin: 01/27/20 06:33 Dose: 75 mg Documented by: Promethazine HCl (Promethazine 25 Mg Tablet) 12.5 mg PO Q6H PRN PRN PRN Reason: NAUSEA/VOMITING Last Admin: 01/26/20 08:22 Dose: 12.5 mg Documented by: Risperidone (Risperidone 1 Mg Tablet) 4 mg PO QHS [facility] Last Admin: 01/26/20 20:20 Dose: 4 mg Documented by: Fluticasone/Salmeterol (Fluticasone/Salmeterol 232-14 Inhaler) 2 puff IH Q12 [facility] Last Admin: 01/27/20 06:33 Dose: 2 puff Documented by: Senna/Docusate Sodium (Senna/Docusate Sodium 1 Tablet) 2 tablet PO BID [facility] Last Admin: 01/27/20 06:37 Dose: 2 tablet Documented by: Sodium Chloride (0.9% Normal Saline 250 Ml Iv.Soln.) 250 ml IV BID PRN PRN PRN Reason: SALINE FLUSH Last Admin: 01/25/20 22:02 Dose: 250 ml Documented by: Sodium Chloride (0.9% Saline Lock 10 Ml Syringe) 10 - 40 ml IV UD PRN PRN Reason: SALINE FLUSH Last Admin: 01/26/20 22:48 Dose: 10 ml Documented by: Sodium Chloride (0.9% Saline Lock 10 Ml Syringe) 10 - 40 ml IV UD PRN PRN Reason: Open End PICC Flush Sodium Chloride (0.9 % Nacl (Sterile) Posiflush 10 Ml) 10 - 40 ml IV UD PRN PRN Reason: Port access or dressing change Sodium Hypochlorite (Dakin's Brittany Half Strength (=0.25%)) 1 applic TOPICAL DAILY@1000 [facility]; Protocol Last Admin: 01/26/20 20:18 Dose: 1 applicatio Documented by: Sucralfate (Sucralfate 1 Gm Tablet) 1 gm PO 1HR_ACHS [facility] Last Admin: 01/27/20 06:38 Dose: 1 gm Documented by: Tizanidine HCl (Tizanidine Hcl 2 Mg Tablet) 6 mg PO Q8H PRN PRN PRN Reason: SPASMS Last Admin: 01/24/20 09:18 Dose: 6 mg Documented by: Tramadol HCl (Tramadol 50 Mg Tablet) 50 mg PO Q6H PRN PRN PRN Reason: Pain Score 1-5 Last Admin: 01/27/20 07:54 Dose: 50 mg Documented by: Trazodone HCl (Trazodone 50 Mg Tablet) 200 mg PO QHS [facility] Last Admin: 01/26/20 20:19 Dose: 200 mg Documented by: Umeclidinium [place] (Umeclidinium [place] Inhaler) 2 puff IH DAILY [facility] Last Admin: 01/27/20 06:43 Dose: 2 puff Documented by: Medical Necessity - Tobacco Use Smoking Status: Current every day smoker Tobacco Use: Cigarettes Assessment/Plan All Active Problems (Last Reviewed 01/22/20 @ 11:[address] Tanner Salgado MD) PAD (peripheral artery disease) (Acute) Other specified peripheral vascular diseases (Acute) Cellulitis of left lower extremity (Acute) Difficulty in walking, not elsewhere classified (Acute) Syncope (Acute) Closed left ankle fracture (Acute) Debility (Acute) Fall (Acute) Diarrhea (Resolved) Hypokalemia (Resolved) Left trimalleolar ankle fracture/Charcot neuroarthropathy s/p ORIF on 12/23/2019 Lateral ankle ulceration down to subcutaneous tissue with cellulitis - healing and cellulitis resolved Uncontrolled Diabetes Tobacco use Multiple comorbidities Reviewed culture results, growing staph epi multiple resistances, switched to vancomycin, ID consulted and on board, patient remains on vancomycin, however patient to d/c antibiotics upon discharge on Monday. Change dressing daily, cleanse with dakin's soln, apply aquacel Ag, then gauze, kerlix and lukas and well padded below knee splint - change daily. Ok to change every other day (3 days a week) upon discharge by home nursing. Strict nonweightbearing left foot/ankle, keep foot elevated. Keep left heel offloaded with pillow. Keep lateral ankle offloaded at all times. Ordered new left ankle xrays. Continue with pain management for post op pain control. Vitamin D lab is low - recommend vitamin D supplementation, 2000 units daily. Continue with tobacco cessation, and proper glucose control to help healing of ankle fracture. Reviewed increased risks of nonhealing and potential complications given patient's multiple comorbidities, including but not limited to tobacco use and uncontrolled diabetes. Podiatry will continue to follow. Patient to follow up with me in 1 week from discharge.
--- NOTE | 2020-01-27 08:09 | NURSING ---
wound photo: left lateral ankle
--- NOTE | 2020-01-27 08:11 | NURSING ---
wound photo: left medial ankle
[2020-01-27] MEDS: busPIRone 15 MG TABLET 30 MG PO ×2 (08:52→17:43)
[2020-01-27] MEDS: Ammonium Lactate 225 gm Bottle 1 APPLIC TOPICAL (11:26)
[2020-01-27] MEDS: DAKIN'S SOL HALF STRENGTH (=0.25%) 1 APPLIC TOPICAL (11:26)
[2020-01-27] MEDS: 0.9% Saline Lock 10 ML Syringe IV ×3 (11:29→22:00)
[2020-01-27] MEDS: Vancomycin IV 1,000 MG/200 ML BAG 200 MG IV ×2 (11:31→22:00)
[2020-01-27 11:36] LABS: Bedside Glucose 226 mg/dL (70-110)
--- NOTE | 2020-01-27 12:06 | CASEMGMT ---
Social Work Spoke with [facility] whom can restart services. Referred to [facility] PT/OT/SN/TEMPLE/SW. No DME needs. Pt still agreeable to DC 01/28. Sister to transport. Soraya Petersen ,[employer] CUST[employer]S DIRECTOR
[2020-01-27 13:44] VITALS: BP 130/49; PULSE 58; RESP 17; TEMP 36.7; O2SAT 96
--- NOTE | 2020-01-27 13:47 | NURSING ---
Spoke with Dr. Mitchell's office, requesting him to complete needed information for ins. approval, and request for pt to be scheduled at wound center 3x/week temporarily. Office to speak with him and call back to provide update.
--- NOTE | 2020-01-27 14:18 | NURSING ---
Received return call from Dr. Mitchell, he stated that he does not want the pt to go to the wound clinic as that would put increased risk of her ankle. Gera made aware.
--- NOTE | 2020-01-27 14:35 | CASEMGMT ---
Social Work Per pt, Dr. Mitchell visited pt this date and stated the dressing changes will be made to 3x/week and he only wants nursing to complete vs family to be trained on changes. Relayed information to [facility] whom are concerned since Doris typically does not approve 3x/wk nurse visits. Currently SOC is 01/31, thus pt would need an alternative person to be trained on dressing changes. Explained Paula only wants nursing. Also, [facility] explained Doris only approves about 3 visits at a time, then must continue to request authorization to get additional visits approved, which can take up to 14 days. [facility] inquired about pt being set up with the wound center for dressing changes. SW to inquire. SW relayed to nurse to inquire to Dr. Mitchell and to be specific with needs in orders for the insurance to view. Nursing stated Paula does not want pt to go to wound center as it would put too much strain on pt ankle. Relayed to [facility]. [facility] then denied pt admit. Referred to [facility]. They also shared the same concerns but agreed to review referral. Will continue to follow and update pt with finalized plans. Soraya Petersen, MOLDING AND TRIM INSTALLER SURG NURSE
--- NOTE | 2020-01-27 16:25 | RAD_ITS ---
STUDY: X-RAY - LEFT ANKLE REASON FOR EXAM: Female, 54 years old. Follow-up after ORIF of ankle. TECHNIQUE: 3 view(s) of the ankle through casting material. COMPARISON: 01/07/2020 FINDINGS: Stable lateral plate-screw fixation of the distal fibula with 2 syndesmotic cancellous screw is. Stable cancellous screws in the medial malleolus. Stable osteoarthritic changes. RAD/Ankle min 3 Views IMPRESSION: Stable ankle with no acute finding. Electronically Signed: Bassem Singh MD at 17:19 EST , Service support ,
[2020-01-27 16:26] LABS: Bedside Glucose 158 mg/dL (70-110)
[2020-01-27] MEDS: tiZANidine HCl 2 MG Tablet 6 MG PO (16:47)
[2020-01-27] MEDS: Atorvastatin Calcium 80 MG Tablet PO (21:03)
[2020-01-27] MEDS: traZODone 50 MG Tablet 200 MG PO (21:04)
[2020-01-27] MEDS: Lisinopril 20 MG Tablet PO (21:05)
[2020-01-27] MEDS: RisperiDONE 1 MG Tablet 4 MG PO (21:05)
[2020-01-27] MEDS: Montelukast 10 MG Tablet PO (21:05)
[2020-01-27 21:16] LABS: Bedside Glucose 220 mg/dL (70-110)
--- NOTE | 2020-01-27 22:02 | DCINST_ITS ---
- Discharge Diagnoses Current Active Problems: Current Active and Chronic Problems (Last Reviewed 01/22/20 @ 11:[address] Tanner Salgado MD) PAD (peripheral artery disease) (Acute) Cellulitis of left lower extremity (Acute) Pulmonary emboli (Chronic) Syncope (Acute) Closed left ankle fracture (Acute) Debility (Acute) Fall (Acute) Diabetic polyneuropathy (Chronic) Muscle spasm (Chronic) Insomnia (Chronic) Overactive bladder (Chronic) Anxiety (Chronic) Coronary artery disease (Chronic) COPD (chronic obstructive pulmonary disease) (Chronic) Diabetes mellitus (Chronic) HTN (hypertension) (Chronic) Osteoarthritis (Chronic) Schizophrenia (Chronic) Depression (Chronic) Gastroesophageal reflux disease (Chronic) Hyperlipidemia (Chronic) RACHEL (obstructive sleep apnea) (Chronic) 17/13 cm of water You will use the following diet at home:: No restrictions, Regular Your food should be the consistency of: Regular Your liquids should be the consistency of: Regular/Thin Discharge Activity: May Shower, Use Walker, - - NWB to left foot, patient has knee scooter she can use Weight Bearing Status: No weight bearing Keep extremity elevated above heart level: Left Leg Call your doctor if your incision/area has: Sudden Increased Bleeding, Increased Pain/ Swelling, Increased Redness, Foul Smelling Discharge Call your doctor if you observe: Fever of 101 or Higher, Inability to urinate, Inability to have a bowel movement, Shortness of breath, Chest pain, Uncontrolled pain Change Dressing in (Days):: 1 Cleanse incision/area with: Keep Dressing Clean & Dry, - - Clean with dakins. Change daily with aquacell along wound, moisturize rest of leg, aply 4x4, kerlix, lukas, cast padding, posterior splint, lukas wraps. per [facility] Allergies/Adverse Reactions: Allergies amoxicillin Allergy (Verified 01/14/20 19:14) Itching erythromycin base Allergy (Verified 01/14/20 19:14) Unknown methadone Allergy (Verified 01/14/20 19:14) Itching metolazone Allergy (Verified 01/14/20 19:14) Unknown Penicillins Allergy (Verified 01/14/20 19:14) Hives Sulfa (Sulfonamide Antibiotics) Allergy (Verified 01/14/20 19:14) Hives acetaminophen [From Percocet] Adverse Reaction (Verified 11/10/20 19:14) Itching clarithromycin [From Biaxin] Adverse Reaction (Verified 01/14/20 19:14) Nausea ibuprofen Adverse Reaction (Verified 01/14/20 19:14) 3 BLEEDING ULCERS 3 BLEEDING ULCERS morphine Adverse Reaction (Verified 01/14/20 19:14) HEADACHE HEADACHE oxycodone [From Percocet] Adverse Reaction (Verified 01/14/20 19:14) Itching Medications to take at Discharge Atorvastatin Calcium [Lipitor] 80 mg PO QHS 08/22/15 Metoprolol(XL)Succ [Toprol Xl (Beta Trino)] 50 mg PO DAILY 08/22/15 Nitroglycerin 0.4 mg SL PRN PRN 11/08/16 amlodipine 10 mg tablet 10 mg PO DAILY tab 05/02/17 potassium chloride 10 mEq tablet,extended release(part/cryst) 10 meq PO DAILY #60 tab 06/16/17 Pregabalin [Lyrica] 75 mg PO TID 03/08/18 Risperidone 4 mg PO QHS 03/08/18 Tizanidine HCl 6 mg PO TID PRN PRN 03/08/18 traZODone [Desyrel] 200 mg PO QHS 03/08/18 Furosemide [Lasix] 20 mg PO DAILY 11/20/18 Lisinopril 20 mg PO QHS 11/20/18 Mirabegron [Myrbetriq] 25 mg PO DAILY 11/20/18 Apixaban [Eliquis] 5 mg PO BID 05/02/19 Fluticasone/Salmeterol [Advair Hfa 230-21 Mcg Inhaler] 2 puff INHALATION DAILY 05/02/19 albuterol sulfate 90 mcg/actuation aerosol inhaler 2 puff INHALATION Q6H PRN 06/27/19 buspirone 30 mg tablet 30 mg PO BID tab 06/27/19 sucralfate 1 gram tablet 1 g PO QACHS 06/27/19 Nystatin [Nystop] 1 applic TP 4X/DAY 08/22/19 proMETHazine tablet [Phenergan tablet] 12.5 - 25 mg PO BID PRN PRN 08/22/19 tiotropium bromide 2.5 mcg/actuation mist for inhalation 2 puff INHALATION DAILY #4 g 09/30/19 montelukast 10 mg tablet 10 mg PO QHS #30 tab 10/30/19 albuterol sulfate 2.5 mg INHALATION Q4H PRN #180 ml 12/11/19 Lactobacillus Acidophilus [Acidophilus] 2 tab PO BID 12/16/19 Insulin Glargine [Lantus SoloStar Pen] 40 units SC BID 12/18/19 Nicotine [Nicoderm Cq] 21 mg TRANSDERM. DAILY 12/18/19 Apixaban [Eliquis] 5 mg PO BID tab 01/02/20 HYDROmorphone tablet [Dilaudid] 2 mg PO Q3H PRN PRN 3 Days #18 tab 01/02/20 Hydrocortisone 2.5% Crm [Hytone] 1 applic TOPICAL TID PRN PRN #1 tube 01/02/20 Menthol/Lanolin/Calamine/Znox [Calmoseptine Ointment] 1 applic TOPICAL BID tube 01/02/20 traMADol [Ultram] 50 mg PO Q6H PRN PRN 3 Days #12 tab 01/02/20 ALPRAZolam [Xanax] 0.5 mg PO TID PRN PRN #21 tablet 01/27/20 Albuterol Sulfate [Proventil Hfa] 2 puff IH Q6H PRN PRN inhaler 01/27/20 Amlodipine [Norvasc] 10 mg PO DAILY tablet 01/27/20 Apixaban [Eliquis] 5 mg PO BID tablet 01/27/20 Atorvastatin Calcium [Lipitor] 80 mg PO QHS tablet 01/27/20 Baclofen [Lioresal] 10 mg PO TID tablet 01/27/20 Fluticasone/Salmeterol [Fluticasone-Salmeterol 232-14] 2 puff IH Q12 inhaler 01/27/20 Furosemide [Lasix] 20 mg PO DAILY tablet 01/27/20 HYDROmorphone tablet [Dilaudid] 2 mg PO Q3H PRN PRN #24 tablet 01/27/20 Insulin Glargine [Lantus SoloStar Pen] 40 units SC BID #1 pen 01/27/20 Insulin Lispro [Humalog KwikPen] 5 unit SC TIDAC #1 insuln.pen 01/27/20 Lisinopril [Zestril] 20 mg PO HS tablet 01/27/20 Menthol/Lanolin/Calamine/Znox [Calmoseptine Ointment] 1 applic TOPICAL BID tube 01/27/20 Metoprolol Tartrate [Lopressor (beta trino)] 50 mg PO DAILY tablet 01/27/20 Mirabegron [Myrbetriq] 25 mg PO DAILY tab.er.24h 01/27/20 Montelukast [Singulair] 10 mg PO HS tablet 01/27/20 Nicotine [Nicoderm Cq] 21 mg TRANSDERM. DAILY #30 patch 01/27/20 Nitroglycerin (INPATIENT USE) [Nitrostat] 0.4 mg SUBLINGUAL Q5M PRN tab.subl 01/27/20 Nystatin Powder [Mycostatin Powder] 1 applic TOPICAL BID bottle 01/27/20 Polyethylene Glycol 3350 [Miralax] 17 gm PO BID #60 packet 01/27/20 Pregabalin [Lyrica] 75 mg PO TID capsule 01/27/20 Risperidone [Risperdal] 4 mg PO QHS tablet 01/27/20 Sodium Hypochlorite [Dakins Solution 0.25% (1/2 Strength)] 1 applic TOPICAL DAILY@1000 #1 bottle 01/27/20 Sucralfate [Carafate] 1 gm PO 1HR_ACHS tablet 01/27/20 Tizanidine HCl [Zanaflex] 6 mg PO Q8H PRN PRN tablet 01/27/20 Umeclidinium [place] Inhaler [Incruse Ellipta Inhaler] 2 puff IH DAILY inhaler 01/27/20 busPIRone [Buspar] 30 mg PO BID tablet 01/27/20 traMADol [Ultram] 50 mg PO Q6H PRN PRN #18 tablet 01/27/20 traZODone [Desyrel] 200 mg PO QHS tablet 01/27/20 The following prescriptions were given: Sodium Hypochlorite [Dakins Solution 0.25% (1/2 Strength)] 1 applic TOPICAL DAILY@1000 #1 bottle Transmission Status: Pending to [facility] [id number] HYDROmorphone tablet [Dilaudid] 2 mg PO Q3H PRN PRN 3 Days #18 tab PRN Reason: Pain Score 4-5 Transmission Status: Received by [place] [id number] HYDROmorphone tablet [Dilaudid] 2 mg PO Q3H PRN PRN #24 tablet PRN Reason: Pain Score 6-10 Transmission Status: Sent to [place] [id number] Insulin Lispro [Humalog KwikPen] 5 unit SC TIDAC #1 insuln.pen Transmission Status: Pending to [place] [address] Hydrocortisone 2.5% Crm [Hytone] 1 applic TOPICAL TID PRN PRN #1 tube PRN Reason: Itching Transmission Status: Received by [place] [id number] Insulin Glargine [Lantus SoloStar Pen] 40 units SC BID #1 pen Transmission Status: Pending to [place] [address] Polyethylene Glycol 3350 [Miralax] 17 gm PO BID #60 packet Transmission Status: Pending to [place] [address] Nicotine [Nicoderm Cq] 21 mg TRANSDERM. DAILY #30 patch Transmission Status: Pending to [place] [address] traMADol [Ultram] 50 mg PO Q6H PRN PRN 3 Days #12 tab PRN Reason: Pain Score 1-5 Transmission Status: Received by [place] [id number] traMADol [Ultram] 50 mg PO Q6H PRN PRN #18 tablet PRN Reason: Pain Score 1-5 Transmission Status: Sent to [place] [address] ALPRAZolam [Xanax] 0.5 mg PO TID PRN PRN #21 tablet PRN Reason: Anxiety Transmission Status: Sent to [place] [address] Primary Care Physician: Janel Taylor MD [Primary Care Provider] - Please follow up with your Primary Care Physician in: 1 week. Test Results: Test results from this visit will be discussed in further detail at your follow- up appointment, if applicable. Please Follow Up With: Janel Taylor MD (PCP) When: 1 week. Please Follow Up With: Ge Mitchell DPM When: 1 week Proposed Discharge Date: 01/29/20
--- NOTE | 2020-01-27 22:03 | PCM.DC.SUM ---
Discharge Date and Diagnosis - Problem List Patient Problems: Active and Suspected Problems (Last Reviewed 01/22/20 @ 11:[address] Tanner Salgado MD) PAD (peripheral artery disease) (Acute) Cellulitis of left lower extremity (Acute) Syncope (Acute) Closed left ankle fracture (Acute) Debility (Acute) Fall (Acute) Date of Admission: 12/18/19 Date of Discharge: 01/29/20 - Primary Discharge Diagnosis Acute Problems: Active Problems (Last Reviewed 01/22/20 @ 11:[address] Tanner Salgado MD) PAD (peripheral artery disease) (Acute) Cellulitis of left lower extremity (Acute) Syncope (Acute) Closed left ankle fracture (Acute) Debility (Acute) Fall (Acute) - Secondary Discharge Diagnosis Chronic Problems: Chronic Problems (Last Reviewed 01/22/20 @ 11:[address] Tanner Salgado MD) Stage 2 moderate COPD by GOLD classification (Chronic) Acute and chronic respiratory failure with hypoxia (Chronic) Cataract (Chronic) Iron deficiency (Chronic) Iron deficiency anemia following bariatric surgery (Chronic) History of gastric bypass (Chronic) Myocardial infarction (Chronic) H/O heart artery stent (Chronic) Pulmonary emboli (Chronic) Diabetic polyneuropathy (Chronic) Muscle spasm (Chronic) Insomnia (Chronic) Overactive bladder (Chronic) Anxiety (Chronic) Coronary artery disease (Chronic) COPD (chronic obstructive pulmonary disease) (Chronic) Diabetes mellitus (Chronic) HTN (hypertension) (Chronic) Peptic ulcer (Chronic) Chronic neutrophilia (Chronic) Osteoarthritis (Chronic) Morbid obesity (Chronic) Neutrophilic leukocytosis (Chronic) Type 2 diabetes mellitus (Chronic) Schizophrenia (Chronic) Hip osteoarthritis (Chronic) with chronic pain-right hip Iron deficiency anemia due to dietary causes (Chronic) exact cause of iron def anemia unknown-felt likely secondary to past history gastric bypass- although chronic blood loss etiology a possibility (has never had colonoscopy)-further workup including hemoccult stool is recommended Morbid obesity with BMI of 45.0-49.9, adult (Chronic) Pulmonary hypertension (Chronic) Chronic narcotic use (Chronic) Depression (Chronic) Gastroesophageal reflux disease (Chronic) Parathyroid abnormality (Chronic) History of PTCA (Chronic) Vitamin D deficiency (Chronic) Hyperlipidemia (Chronic) Thyroid nodule (Chronic) deemed to be benign. Benign essential hypertension (Chronic) CAD (coronary artery disease) (Chronic) RACHEL (obstructive sleep apnea) (Chronic) 13 cm of water Spinal stenosis of lumbar region at multiple levels (Chronic) Tobacco abuse (Chronic) Hospital Course and Treatment Imaging Results: 01/27/20 16:25 Ankle min 3 Views [RAD] Urgent Consultations 01/09/20 19:10 Consult: Onc/Wound/propeller inspector Routine Comment: Reason for Consult:: wound lateral left ankle s/p ORIF Operations: None Procedures: None Summary of Care Provided: The patient is a 54 year old Female with below past medical history hospitalized for left ankle fracture, syncope evaluation negative, admitted to TCU with debility, here for rehabilitation, strengthening, prior to ORIF left ankle fracture per Dr. Mitchell, prior to further therapy, then discharge home alone. Discharge home alone, [facility] PT/OT/SN/SW. Patient Problems: Active and Suspected Problems (Last Reviewed 01/22/20 @ 11:[address] Tanner Salgado MD) PAD (peripheral artery disease) (Acute) Cellulitis of left lower extremity (Acute) Syncope (Acute) Closed left ankle fracture (Acute) Debility (Acute) Fall (Acute) - Physical Exam Vitals/I&O's: Vital Signs Temp Pulse Resp BP Pulse Ox 98.1 F 58 L 17 130/49 H 96 01/27/20 13:44 01/27/20 13:44 01/27/20 13:44 01/27/20 13:44 01/27/20 13:44 Oxygen Flow Rate (L/min) 3 Oxygen Delivery Method Room Air Weight: 109.032 kg Body Mass Index (BMI) 44.2 Finger Stick Blood Glucose 422 Intake and Output for Last 24 Hours 01/25/20 01/26/20 01/27/20 23:59 23:59 23:59 Intake Total 2700 / 2900 2500 / 2500 Output Total 700 / 700 300 / 300 Balance 2000 / 2200 2200 / 2200 Microbiology Past 72 Hours 01/27/20 14:09 Nasal Secretion SARS-CoV-2 Antigen (Rapid) - Final Laboratory Results 01/27/20 06:04: POC Glucose 123 H 01/27/20 11:29: POC Glucose 226 H 01/27/20 16:11: POC Glucose 158 H 01/27/20 21:06: POC Glucose 220 H Current Medications Albuterol Sulfate (Albuterol Sulfate Hfa 6.7 Gm Inhaler (200 Puffs)) 2 puff IH Q6H PRN PRN PRN Reason: SOB &/or Wheezing Alprazolam (Alprazolam 0.5 Mg Tablet) 0.5 mg PO TID PRN PRN PRN Reason: ANXIETY Last Admin: 01/27/20 07:54 Dose: 0.5 mg Documented by: Amlodipine Besylate (Amlodipine 10 Mg Tablet) 10 mg PO DAILY [facility] Last Admin: 01/27/20 06:37 Dose: 10 mg Documented by: Apixaban (Apixaban 5 Mg Tablet) 5 mg PO BID [facility] Last Admin: 01/27/20 17:43 Dose: 5 mg Documented by: Atorvastatin Calcium (Atorvastatin Calcium 80 Mg Tablet) 80 mg PO QHS [facility] Last Admin: 01/27/20 21:03 Dose: 80 mg Documented by: Baclofen (Baclofen 10 Mg Tablet) 10 mg PO TID [facility] Last Admin: 01/27/20 21:04 Dose: 10 mg Documented by: Buspirone HCl (Buspirone 15 Mg Tablet) 30 mg PO BID [facility] Last Admin: 01/27/20 17:43 Dose: 30 mg Documented by: Calamine/Phenol (Menthol/Lanolin/Calamine/Znox 113 Gm Tube) 1 applic TOPICAL BID [facility]; Protocol Last Admin: 01/27/20 17:38 Dose: 1 applicatio Documented by: Furosemide (Furosemide 20 Mg Tablet) 20 mg PO DAILY [facility] Last Admin: 01/27/20 06:37 Dose: 20 mg Documented by: Heparin Sodium (Beef Lung) (Heparin Pf Lock 10 Units/Ml 50 Units/5 Ml Syringe) 50 units IV UD PRN PRN Reason: PICC Line Heparin Flush Hydromorphone HCl (Hydromorphone 2 Mg Tablet) 2 mg PO Q3H PRN PRN PRN Reason: Pain Score 6-10 Last Admin: 01/27/20 21:08 Dose: 2 mg Documented by: Vancomycin IV Pharmacy to Dose (1 ea/ Sodium Chloride) 500 mls @ 250 mls/hr IV X1 PRN; Protocol PRN Reason: Rx to Dose Vancomycin HCl (Vancomycin) 1,000 mg in 200 mls @ 200 mls/hr IV Q12H [facility] Last Infusion: 01/27/20 12:35 Dose: Infused Documented by: Insulin Glargine (Insulin Glargine 100 Units/Ml Pen) 40 units SC BID [facility] Last Admin: 01/27/20 17:40 Dose: 40 u Documented by: Insulin Human Lispro (Insulin Lispro 100 Unit/Ml Insuln.Pen) 5 unit SC TIDAC [facility] Last Admin: 01/27/20 17:39 Dose: 5 units Documented by: Lactic Acid (Ammonium Lactate 225 Gm Bottle) 1 applic TOPICAL DAILY@1000 [facility]; Protocol Last Admin: 01/27/20 11:26 Dose: 1 applicatio Documented by: Lactobacillus Acidophilus (Lactobacillus Acidophilus) 2 tablet PO BID [facility] Last Admin: 01/27/20 17:42 Dose: 2 tablet Documented by: Lisinopril (Lisinopril 20 Mg Tablet) 20 mg PO [facility] Last Admin: 01/27/20 21:05 Dose: 20 mg Documented by: Metoprolol Tartrate (Metoprolol Tartrate 50 Mg Tablet) 50 mg PO DAILY [facility] Last Admin: 01/27/20 06:37 Dose: 50 mg Documented by: Mirabegron (Mirabegron 25 Mg Tab.Er.24h) 25 mg PO DAILY [facility] Last Admin: 01/27/20 06:38 Dose: 25 mg Documented by: Montelukast Sodium (Montelukast 10 Mg Tablet) 10 mg PO HS [facility] Last Admin: 01/27/20 21:05 Dose: 10 mg Documented by: Nicotine (Nicotine 21 Mg Patch) 21 mg TRANSDERM. DAILY [facility] Last Admin: 01/27/20 06:44 Dose: 21 mg Documented by: Nitroglycerin (Nitroglycerin (Inpatient Use) 0.4 Mg Tab.Subl) 0.4 mg SUBLINGUAL Q5M PRN PRN Reason: CARDIAC/CHEST PAIN Nystatin (Nystatin Powder 15gm Bottle) 1 applic TOPICAL BID [facility]; Protocol Last Admin: 01/27/20 17:38 Dose: 1 applicatio Documented by: Polyethylene Glycol (Polyethylene Glycol 3350 17 Gm Packet) 17 gm PO BID [facility] Last Admin: 01/27/20 16:45 Dose: 17 gm Documented by: Potassium Chloride (Potassium Chloride 10 Meq Tablet) 10 meq PO DAILYCM [facility] Last Admin: 01/27/20 07:55 Dose: 10 meq Documented by: Pregabalin (Pregabalin 75 Mg Capsule) 75 mg PO TID [facility] Last Admin: 01/27/20 21:08 Dose: 75 mg Documented by: Promethazine HCl (Promethazine 25 Mg Tablet) 12.5 mg PO Q6H PRN PRN PRN Reason: NAUSEA/VOMITING Last Admin: 01/26/20 08:22 Dose: 12.5 mg Documented by: Risperidone (Risperidone 1 Mg Tablet) 4 mg PO QHS [facility] Last Admin: 01/27/20 21:05 Dose: 4 mg Documented by: Fluticasone/Salmeterol (Fluticasone/Salmeterol 232-14 Inhaler) 2 puff IH Q12 [facility] Last Admin: 01/27/20 17:41 Dose: 2 puff Documented by: Senna/Docusate Sodium (Senna/Docusate Sodium 1 Tablet) 2 tablet PO BID [facility] Last Admin: 01/27/20 17:43 Dose: Not Given Documented by: Sodium Chloride (0.9% Normal Saline 250 Ml Iv.Soln.) 250 ml IV BID PRN PRN PRN Reason: SALINE FLUSH Last Admin: 01/25/20 22:02 Dose: 250 ml Documented by: Sodium Chloride (0.9% Saline Lock 10 Ml Syringe) 10 - 40 ml IV UD PRN PRN Reason: SALINE FLUSH Last Admin: 01/27/20 16:44 Dose: 10 ml Documented by: Sodium Chloride (0.9% Saline Lock 10 Ml Syringe) 10 - 40 ml IV UD PRN PRN Reason: Open End PICC Flush Sodium Chloride (0.9 % Nacl (Sterile) Posiflush 10 Ml) 10 - 40 ml IV UD PRN PRN Reason: Port access or dressing change Sodium Hypochlorite (Dakin's Brittany Half Strength (=0.25%)) 1 applic TOPICAL DAILY@1000 [facility]; Protocol Last Admin: 01/27/20 11:26 Dose: 1 applicatio Documented by: Sucralfate (Sucralfate 1 Gm Tablet) 1 gm PO 1HR_ACHS [facility] Last Admin: 01/27/20 21:03 Dose: 1 gm Documented by: Tizanidine HCl (Tizanidine Hcl 2 Mg Tablet) 6 mg PO Q8H PRN PRN PRN Reason: SPASMS Last Admin: 01/27/20 16:47 Dose: 6 mg Documented by: Tramadol HCl (Tramadol 50 Mg Tablet) 50 mg PO Q6H PRN PRN PRN Reason: Pain Score 1-5 Last Admin: 01/27/20 16:43 Dose: 50 mg Documented by: Trazodone HCl (Trazodone 50 Mg Tablet) 200 mg PO QHS [facility] Last Admin: 01/27/20 21:04 Dose: 200 mg Documented by: Umeclidinium Valera (Umeclidinium Valera Inhaler) 2 puff IH DAILY [facility] Last Admin: 01/27/20 06:43 Dose: 2 puff Documented by: Discharge Diet: No Restrictions Discharge Activity: May Shower, Use Walker, - - NWB to left foot, patient has knee scooter she can use Weight Bearing Status: No weight bearing Keep extremity elevated above heart level: Left Leg Call your doctor if your incision/area has: Sudden Increased Bleeding, Increased Pain/ Swelling, Increased Redness, Foul Smelling Discharge Call your doctor if you observe: Fever of 101 or Higher, Inability to urinate, Inability to have a bowel movement, Shortness of breath, Chest pain, Uncontrolled pain Change Dressing in (Days):: 1 Cleanse incision/area with: Keep Dressing Clean & Dry, - - Clean with dakins. Change daily with aquacell along wound, moisturize rest of leg, aply 4x4, kerlix, lukas, cast padding, posterior splint, lukas wraps. per [facility] Home Medications: Medications to take at Discharge Atorvastatin Calcium [Lipitor] 80 mg PO QHS 08/22/15 Metoprolol(XL)Succ [Toprol Xl (Beta Trino)] 50 mg PO DAILY 08/22/15 Nitroglycerin 0.4 mg SL PRN PRN 11/08/16 amlodipine 10 mg tablet 10 mg PO DAILY tab 05/02/17 potassium chloride 10 mEq tablet,extended release(part/cryst) 10 meq PO DAILY #60 tab 06/16/17 Pregabalin [Lyrica] 75 mg PO TID 03/08/18 Risperidone 4 mg PO QHS 03/08/18 Tizanidine HCl 6 mg PO TID PRN PRN 03/08/18 traZODone [Desyrel] 200 mg PO QHS 03/08/18 Furosemide [Lasix] 20 mg PO DAILY 11/20/18 Lisinopril 20 mg PO QHS 11/20/18 Mirabegron [Myrbetriq] 25 mg PO DAILY 11/20/18 Apixaban [Eliquis] 5 mg PO BID 05/02/19 Fluticasone/Salmeterol [Advair Hfa 230-21 Mcg Inhaler] 2 puff INHALATION DAILY 05/02/19 albuterol sulfate 90 mcg/actuation aerosol inhaler 2 puff INHALATION Q6H PRN 06/27/19 buspirone 30 mg tablet 30 mg PO BID tab 06/27/19 sucralfate 1 gram tablet 1 g PO QACHS 06/27/19 Nystatin [Nystop] 1 applic TP 4X/DAY 08/22/19 proMETHazine tablet [Phenergan tablet] 12.5 - 25 mg PO BID PRN PRN 08/22/19 tiotropium bromide 2.5 mcg/actuation mist for inhalation 2 puff INHALATION DAILY #4 g 09/30/19 montelukast 10 mg tablet 10 mg PO QHS #30 tab 10/30/19 albuterol sulfate 2.5 mg INHALATION Q4H PRN #180 ml 12/11/19 Lactobacillus Acidophilus [Acidophilus] 2 tab PO BID 12/16/19 Insulin Glargine [Lantus SoloStar Pen] 40 units SC BID 12/18/19 Nicotine [Nicoderm Cq] 21 mg TRANSDERM. DAILY 12/18/19 Apixaban [Eliquis] 5 mg PO BID tab 01/02/20 HYDROmorphone tablet [Dilaudid] 2 mg PO Q3H PRN PRN 3 Days #18 tab 01/02/20 Hydrocortisone 2.5% Crm [Hytone] 1 applic TOPICAL TID PRN PRN #1 tube 01/02/20 Menthol/Lanolin/Calamine/Znox [Calmoseptine Ointment] 1 applic TOPICAL BID tube 01/02/20 traMADol [Ultram] 50 mg PO Q6H PRN PRN 3 Days #12 tab 01/02/20 ALPRAZolam [Xanax] 0.5 mg PO TID PRN PRN #21 tablet 01/27/20 Albuterol Sulfate [Proventil Hfa] 2 puff IH Q6H PRN PRN inhaler 01/27/20 Amlodipine [Norvasc] 10 mg PO DAILY tablet 01/27/20 Apixaban [Eliquis] 5 mg PO BID tablet 01/27/20 Atorvastatin Calcium [Lipitor] 80 mg PO QHS tablet 01/27/20 Baclofen [Lioresal] 10 mg PO TID tablet 01/27/20 Fluticasone/Salmeterol [Fluticasone-Salmeterol 232-14] 2 puff IH Q12 inhaler 01/27/20 Furosemide [Lasix] 20 mg PO DAILY tablet 01/27/20 HYDROmorphone tablet [Dilaudid] 2 mg PO Q3H PRN PRN #24 tablet 01/27/20 Insulin Glargine [Lantus SoloStar Pen] 40 units SC BID #1 pen 01/27/20 Insulin Lispro [Humalog KwikPen] 5 unit SC TIDAC #1 insuln.pen 01/27/20 Lisinopril [Zestril] 20 mg PO HS tablet 01/27/20 Menthol/Lanolin/Calamine/Znox [Calmoseptine Ointment] 1 applic TOPICAL BID tube 01/27/20 Metoprolol Tartrate [Lopressor (beta trino)] 50 mg PO DAILY tablet 01/27/20 Mirabegron [Myrbetriq] 25 mg PO DAILY tab.er.24h 01/27/20 Montelukast [Singulair] 10 mg PO HS tablet 01/27/20 Nicotine [Nicoderm Cq] 21 mg TRANSDERM. DAILY #30 patch 01/27/20 Nitroglycerin (INPATIENT USE) [Nitrostat] 0.4 mg SUBLINGUAL Q5M PRN tab.subl 01/27/20 Nystatin Powder [Mycostatin Powder] 1 applic TOPICAL BID bottle 01/27/20 Polyethylene Glycol 3350 [Miralax] 17 gm PO BID #60 packet 01/27/20 Pregabalin [Lyrica] 75 mg PO TID capsule 01/27/20 Risperidone [Risperdal] 4 mg PO QHS tablet 01/27/20 Sodium Hypochlorite [Dakins Solution 0.25% (1/2 Strength)] 1 applic TOPICAL DAILY@1000 #1 bottle 01/27/20 Sucralfate [Carafate] 1 gm PO 1HR_ACHS tablet 01/27/20 Tizanidine HCl [Zanaflex] 6 mg PO Q8H PRN PRN tablet 01/27/20 Umeclidinium Valera Inhaler [Incruse Ellipta Inhaler] 2 puff IH DAILY inhaler 01/27/20 busPIRone [Buspar] 30 mg PO BID tablet 01/27/20 traMADol [Ultram] 50 mg PO Q6H PRN PRN #18 tablet 01/27/20 traZODone [Desyrel] 200 mg PO QHS tablet 01/27/20 Following Prescriptions Were Given to Patient: Sodium Hypochlorite [Dakins Solution 0.25% (1/2 Strength)] 1 applic TOPICAL DAILY@1000 #1 bottle Transmission Status: Pending to [place] [id number] HYDROmorphone tablet [Dilaudid] 2 mg PO Q3H PRN PRN 3 Days #18 tab PRN Reason: Pain Score 4-5 Transmission Status: Received by [place] [address] HYDROmorphone tablet [Dilaudid] 2 mg PO Q3H PRN PRN #24 tablet PRN Reason: Pain Score 6-10 Transmission Status: Sent to [place] [address] Insulin Lispro [Humalog KwikPen] 5 unit SC TIDAC #1 insuln.pen Transmission Status: Pending to [place] [address] Hydrocortisone 2.5% Crm [Hytone] 1 applic TOPICAL TID PRN PRN #1 tube PRN Reason: Itching Transmission Status: Received by [place] [address] Insulin Glargine [Lantus SoloStar Pen] 40 units SC BID #1 pen Transmission Status: Pending to [place] [address] Polyethylene Glycol 3350 [Miralax] 17 gm PO BID #60 packet Transmission Status: Pending to [place] [address] Nicotine [Nicoderm Cq] 21 mg TRANSDERM. DAILY #30 patch Transmission Status: Pending to [place] [address] traMADol [Ultram] 50 mg PO Q6H PRN PRN 3 Days #12 tab PRN Reason: Pain Score 1-5 Transmission Status: Received by [place] [address] traMADol [Ultram] 50 mg PO Q6H PRN PRN #18 tablet PRN Reason: Pain Score 1-5 Transmission Status: Sent to [place] [address] ALPRAZolam [Xanax] 0.5 mg PO TID PRN PRN #21 tablet PRN Reason: Anxiety Transmission Status: Sent to [place] [address] Primary Care Physician: Janel Taylor MD [Primary Care Provider] - Please follow up with your Primary Care Physician in: 1 week. Please Follow Up With: Janel Taylor MD (PCP) When: 1 week. Please Follow Up With: Ge Mitchell DPM When: 1 week Disposition: Home with Home Health Minutes spent on discharge:: 35 Patient Condition:: Stable Medical Necessity - Tobacco Use Smoking Status: Current every day smoker Tobacco Use: Cigarettes Meaningful Use Info Meaningful Use Diagnoses (Choose all that apply): None applicable
[2020-01-28] MEDS: HYDROmorphone 2 MG TABLET PO ×6 (00:38→21:16)
[2020-01-28] MEDS: ALPRAZolam 0.5 MG Tablet PO (00:38)
[2020-01-28] MEDS: Umeclidinium Bromide Inhaler 2 PUFF IH (04:19)
[2020-01-28] MEDS: Fluticasone/Salmeterol 232-14 Inhaler 2 PUFF IH ×2 (04:19→17:27)
[2020-01-28 04:20] VITALS: BP 121/64; PULSE 75; RESP 16; TEMP 36.6; O2SAT 95
[2020-01-28] MEDS: busPIRone 15 MG TABLET 30 MG PO ×2 (04:20→17:28)
[2020-01-28] MEDS: Pregabalin 75 MG Capsule PO ×3 (04:20→21:04)
[2020-01-28 04:21] VITALS: BP 121/64; PULSE 75
[2020-01-28] MEDS: Metoprolol Tartrate 50 MG Tablet PO (04:21)
[2020-01-28] MEDS: Senna/Docusate Sodium 1 Tablet 2 TABLET PO ×2 (04:21→17:28)
[2020-01-28] MEDS: Baclofen 10 MG Tablet PO ×3 (04:22→20:54)
[2020-01-28] MEDS: APIXABAN 5 MG TABLET PO ×2 (04:22→17:28)
[2020-01-28] MEDS: Furosemide 20 MG Tablet PO (04:22)
[2020-01-28] MEDS: Mirabegron 25 MG TAB.ER.24H PO (04:22)
[2020-01-28] MEDS: Nystatin Powder 15gm Bottle 1 APPLIC TOPICAL ×2 (04:22→17:29)
[2020-01-28] MEDS: amLODIPine 10 MG Tablet PO (04:23)
[2020-01-28 06:31] LABS: Bedside Glucose 148 mg/dL (70-110)
[2020-01-28] MEDS: Insulin Lispro 100 UNIT/ML INSULN.PEN SC ×3 (07:56→17:25)
[2020-01-28] MEDS: Sucralfate 1 GM Tablet PO ×4 (07:56→20:53)
[2020-01-28 11:21] LABS: Bedside Glucose 197 mg/dL (70-110)
[2020-01-28 11:28] LABS: Vancomycin, Trough Level 15.2 ug/mL (5.0-15.0)
--- NOTE | 2020-01-28 11:28 | CASEMGMT ---
Social Work [facility] can accept pt for wound changes 3x/wk. Pt aware. Soraya Petersen, TICKET MARKER NATIONAL ACCOUNT MANAGER
[2020-01-28] MEDS: Vancomycin IV 1,000 MG/200 ML BAG 200 MG IV ×2 (11:52→22:56)
[2020-01-28] MEDS: 0.9% Saline Lock 10 ML Syringe IV ×3 (11:53→22:56)
[2020-01-28] MEDS: 0.9% Normal Saline 250 ML IV.SOLN. IV (11:53)
[2020-01-28] MEDS: traMADol 50 MG Tablet PO (12:09)
[2020-01-28 14:08] VITALS: BP 126/54; PULSE 64; TEMP 36.6; O2SAT 96
--- NOTE | 2020-01-28 14:12 | PCM.RX.CS ---
Consult Pharmacy has been consulted to manage selected antiobiotic: Vancomycin Type of Consult: Follow-up Suspected Infection: Skin/Soft tissue Prior Doses of Antibiotics Received/Current Regimen: 1 gm IV q12h. Labs: Sodium 139 mmol/L (136-145) 01/24/20 05:30 Potassium 3.9 mmol/L (3.5-5.1) 01/24/20 05:30 Chloride 107 mmol/L (98-107) 01/24/20 05:30 Carbon Dioxide 30.0 mmol/L (21.0-32.0) 01/24/20 05:30 Anion Gap 2 (5-15) L 01/24/20 05:30 BUN 8 mg/dL (7-18) 01/24/20 05:30 Creatinine 0.65 mg/dL (0.55-1.02) 01/24/20 05:30 Est GFR (MDRD) Af Amer 122 mL/min (>60) 01/24/20 05:30 Est GFR (MDRD) Non-Af 101 mL/min (>60) 01/24/20 05:30 BUN/Creatinine Ratio 12.3 RATIO (-) 01/24/20 05:30 Glucose 109 mg/dL (74-106) H 01/24/20 05:30 Vancomycin Trough 15.2 ug/mL (5.0-15.0) H 01/28/20 10:35 Microbiology: Microbiology 01/27/20 14:09 Nasal Secretion SARS-CoV-2 Antigen (Rapid) - Final 01/13/20 Unknown Mucosa - Nose Respiratory Syncytial Virus Ag Scrn - Final 01/06/20 19:05 Wound Abcess - No Site/Description Given Gram Stain - Final 01/06/20 19:05 Wound Abcess - No Site/Description Given Wound Culture - Final Staphylococcus epidermidis Staphylococcus epidermidis#2 01/06/20 19:05 Wound Abcess - No Site/Description Given Anaerobic Culture - Final No anaerobic bacteria isolated. 12/30/19 10:45 Mucosa - Nose - Final 12/23/19 22:47 Blood Culture (Wb) - Left Hand Blood Culture - Final No growth in 5 days. 12/23/19 23:00 Blood Culture (Wb) - No Site/Description Given Blood Culture - Final No growth in 5 days. Weight used for dosin kg Estimated Creatinine Clearance: ~117ml/min Goal Trough: 10-15 mcg/mL Pharmacy Plan for Drug Dosing: Trough level today 15.2. Renal function reviewed. Will continue 1gm iv q12h. Another trough ordered in 4 days on 02.01.20. Pharmacy Service will continue to monitor and adjust dosing as required. Follow-Up Labs: Trough Vancomycin - 02.01.20 @1030 before 1100 dose
--- NOTE | 2020-01-28 15:08 | NURSING ---
WILLIRN/WOUND NURSE CHANGED PT SOFT CAST TO LEFT FOOT.
[2020-01-28] MEDS: DAKIN'S SOL HALF STRENGTH (=0.25%) 1 APPLIC TOPICAL (15:09)
[2020-01-28] MEDS: Ammonium Lactate 225 gm Bottle 1 APPLIC TOPICAL (15:10)
[2020-01-28 15:33] VITALS: O2SAT 98
[2020-01-28 16:21] LABS: Bedside Glucose 149 mg/dL (70-110)
--- NOTE | 2020-01-28 16:26 | NURSING ---
Resident and family notified of staff member testing positive for COVID.
[2020-01-28] MEDS: Polyethylene Glycol 3350 17 GM PACKET PO (17:27)
[2020-01-28] MEDS: Menthol/Lanolin/Calamine/Znox 113 GM Tube 1 APPLIC TOPICAL (17:29)
[2020-01-28] MEDS: traZODone 50 MG Tablet 200 MG PO (20:54)
[2020-01-28] MEDS: Lisinopril 20 MG Tablet PO (20:55)
[2020-01-28] MEDS: Montelukast 10 MG Tablet PO (20:55)
[2020-01-28] MEDS: Atorvastatin Calcium 80 MG Tablet PO (20:56)
[2020-01-28] MEDS: RisperiDONE 1 MG Tablet 4 MG PO (20:56)
[2020-01-28 21:31] LABS: Bedside Glucose 191 mg/dL (70-110)
[2020-01-29] MEDS: 0.9% Saline Lock 10 ML Syringe IV (00:21)
[2020-01-29 06:35] VITALS: BP 150/80; PULSE 80; RESP 16; TEMP 36.2; O2SAT 98
[2020-01-29 06:35] LABS: Bedside Glucose 138 mg/dL (70-110)
[2020-01-29] MEDS: Fluticasone/Salmeterol 232-14 Inhaler 2 PUFF IH (06:36)
[2020-01-29] MEDS: Umeclidinium Bromide Inhaler 2 PUFF IH (06:37)
[2020-01-29] MEDS: Sucralfate 1 GM Tablet PO (06:37)
[2020-01-29] MEDS: HYDROmorphone 2 MG TABLET PO (06:37)
[2020-01-29] MEDS: Pregabalin 75 MG Capsule PO (06:37)
[2020-01-29] MEDS: amLODIPine 10 MG Tablet PO (06:40)
[2020-01-29] MEDS: Polyethylene Glycol 3350 17 GM PACKET PO (06:40)
[2020-01-29] MEDS: Mirabegron 25 MG TAB.ER.24H PO (06:40)
[2020-01-29] MEDS: APIXABAN 5 MG TABLET PO (06:40)
[2020-01-29] MEDS: Senna/Docusate Sodium 1 Tablet 2 TABLET PO (06:40)
[2020-01-29] MEDS: busPIRone 15 MG TABLET 30 MG PO (06:40)
[2020-01-29] MEDS: Furosemide 20 MG Tablet PO (06:40)
[2020-01-29 06:41] VITALS: BP 150/80; PULSE 80
[2020-01-29] MEDS: Baclofen 10 MG Tablet PO (06:41)
[2020-01-29] MEDS: Metoprolol Tartrate 50 MG Tablet PO (06:41)
[2020-01-29] MEDS: Nystatin Powder 15gm Bottle 1 APPLIC TOPICAL (06:44)
[2020-01-29] MEDS: Menthol/Lanolin/Calamine/Znox 113 GM Tube 1 APPLIC TOPICAL (06:44)
[2020-01-29] MEDS: ALPRAZolam 0.5 MG Tablet PO (07:54)
[2020-01-29] MEDS: Insulin Lispro 100 UNIT/ML INSULN.PEN SC (07:56)
[2020-01-29] MEDS: traMADol 50 MG Tablet PO (07:58)
[2020-01-29 10:00] VITALS: PULSE 58; RESP 16; O2SAT 98
[2020-01-29 10:52] VITALS: BP 126/84; PULSE 64; RESP 18; TEMP 36.5; O2SAT 95
--- NOTE | 2020-01-29 12:37 | NURSING ---
nicotine patch removed from r' per request before discharge
--- NOTE | 2020-01-29 12:44 | CASEMGMT ---
Social Work BIMS and PHQ-9 completed for MDS assessment. Soraya Petersen ,MANAGEMENT ASSOCIATE ACCOUNT RECEIVABLE CLERK
== END 2020-01-29 11:30 | disposition home health service (06) | DRG 464 ==
PROVIDERS: Internal Medicine Infectious Disease; Podiatrist; Podiatrist Foot & Ankle Surgery; Admitting Provider Family Medicine Geriatric Medicine; PCP Family Medicine; Visit Provider Family Medicine Geriatric Medicine
DX: S82.852D Displaced trimalleolar fracture of left lower leg, subsequent encounter for closed fracture with routine healing (principal); Z68.41 Body mass index [BMI] 40.0-44.9, adult; F31.81 Bipolar II disorder; J96.11 Chronic respiratory failure with hypoxia; L03.116 Cellulitis of left lower limb; X58.XXXD Exposure to other specified factors, subsequent encounter; E11.42 Type 2 diabetes mellitus with diabetic polyneuropathy; E78.5 Hyperlipidemia, unspecified; F17.210 Nicotine dependence, cigarettes, uncomplicated; E66.01 Morbid (severe) obesity due to excess calories; K21.9 Gastro-esophageal reflux disease without esophagitis; J44.9 Chronic obstructive pulmonary disease, unspecified; I25.2 Old myocardial infarction; I25.10 Atherosclerotic heart disease of native coronary artery without angina pectoris; I27.20 Pulmonary hypertension, unspecified; G47.33 Obstructive sleep apnea (adult) (pediatric); I10 Essential (primary) hypertension; E87.6 Hypokalemia; F25.9 Schizoaffective disorder, unspecified; F41.9 Anxiety disorder, unspecified; N32.81 Overactive bladder; B35.4 Tinea corporis; G89.29 Other chronic pain; E11.51 Type 2 diabetes mellitus with diabetic peripheral angiopathy without gangrene; Z98.84 Bariatric surgery status; Z86.711 Personal history of pulmonary embolism; B95.7 Other staphylococcus as the cause of diseases classified elsewhere
CPT/HCPCS: 36415; 36569; 71046; 73610; 80048; 80053; 80202; 81002; 82962; 83930; 83935; 84300; 85014; 85018; 85025; 87040; 87070; 87075; 87077; 87186; 87205; 87426; 87635; 93923; 93925; 94003; 94640; 97110; 97116; 97162; 97166; 97530; 97535; J7040; J7050; J7120; A4216; U0003

== ENCOUNTER 2019-12-23 12:25 | Day surgery (SDC) | payer MEDICARE, MEDICAID, SELFPAY ==
[2019-12-23] VITALS (9 sets, daily range): BP systolic 102–164; BP diastolic 58–82; PULSE 82–103; RESP 16–20; TEMP 36.8–37.4; O2SAT 94–99; BMI 44.2
[2019-12-23] MEDS: Lactated Ringers 1,000 ML 100 ML IV ×2 (12:56→17:20)
--- NOTE | 2019-12-23 13:30 | RAD_ITS ---
STUDY: X-RAY - LEFT ANKLE REASON FOR EXAM: Female, 54 years old. LEFT TRIMALLEOLAR ORIF TECHNIQUE: 10 view(s) of the ankle. COMPARISON: 12/20/2019 FINDINGS: Fluoroscopy of the left ankle was utilized and operating room and 10 images made of for interpretation.. RAD/Ankle min 3 Views IMPRESSION: Fluoroscopy during surgery. Electronically Signed: Jerome El MD at 10:14 EDT Tel , Service support ,
--- NOTE | 2019-12-23 17:13 | DCINST_ITS ---
Discharge Diet: Light diet - advance as tolerated Weight Bearing Status: No weight bearing - No weightbearing left foot Keep extremity elevated above heart level: Left Leg - Keep left foot elevated at all times with pillows, keep heel offloaded as well Call your doctor if your incision/area has: Continuous Slow Oozing, Sudden Increased Bleeding, Foul Smelling Discharge Call your doctor if you observe: Fever of 101 or Higher, Shortness of breath, Chest pain, Calf discomfort, Uncontrolled pain Cleanse incision/area with: Do not get Incision Wet, Keep Dressing Clean & Dry, - - Keep dressing and splint clean, dry and intact Allergies/Adverse Reactions: Allergies amoxicillin Allergy (Verified 12/23/19 12:34) Itching erythromycin base Allergy (Verified 12/23/19 12:34) Unknown methadone Allergy (Verified 12/23/19 12:34) Itching metolazone Allergy (Verified 12/23/19 12:34) Unknown Penicillins Allergy (Verified 12/23/19 12:34) Hives Sulfa (Sulfonamide Antibiotics) Allergy (Verified 12/23/19 12:34) Hives acetaminophen [From Percocet] Adverse Reaction (Verified 12/23/19 12:34) Itching clarithromycin [From Biaxin] Adverse Reaction (Verified 12/23/19 12:34) Nausea ibuprofen Adverse Reaction (Verified 12/23/19 12:34) 3 BLEEDING ULCERS 3 BLEEDING ULCERS morphine Adverse Reaction (Verified 12/23/19 12:34) HEADACHE HEADACHE oxycodone [From Percocet] Adverse Reaction (Verified 12/23/19 12:34) Itching Medications to take at Discharge Atorvastatin Calcium [Lipitor] 80 mg PO QHS 08/22/15 Metoprolol(XL)Succ [Toprol Xl (Beta Trino)] 50 mg PO DAILY 08/22/15 Nitroglycerin 0.4 mg SL PRN PRN 11/08/16 amlodipine 10 mg tablet 10 mg PO DAILY tab 05/02/17 potassium chloride 10 mEq tablet,extended release(part/cryst) 10 meq PO DAILY #60 tab 06/16/17 Pregabalin [Lyrica] 75 mg PO TID 03/08/18 Risperidone 4 mg PO QHS 03/08/18 Tizanidine HCl 6 mg PO TID PRN PRN 03/08/18 traZODone [Desyrel] 200 mg PO QHS 03/08/18 Furosemide [Lasix] 20 mg PO DAILY 11/20/18 Lisinopril 20 mg PO QHS 11/20/18 Mirabegron [Myrbetriq] 25 mg PO DAILY 11/20/18 Apixaban [Eliquis] 5 mg PO BID 05/02/19 Fluticasone/Salmeterol [Advair Hfa 230-21 Mcg Inhaler] 2 puff INHALATION DAILY 05/02/19 albuterol sulfate 90 mcg/actuation aerosol inhaler 2 puff INHALATION Q6H PRN 06/27/19 buspirone 30 mg tablet 30 mg PO BID tab 06/27/19 sucralfate 1 gram tablet 1 g PO QACHS 06/27/19 Nystatin [Nystop] 1 applic TP 4X/DAY 08/22/19 proMETHazine tablet [Phenergan tablet] 12.5 - 25 mg PO BID PRN PRN 08/22/19 tiotropium bromide 2.5 mcg/actuation mist for inhalation 2 puff INHALATION DAILY #4 g 09/30/19 montelukast 10 mg tablet 10 mg PO QHS #30 tab 10/30/19 albuterol sulfate 2.5 mg INHALATION Q4H PRN #180 ml 12/11/19 Lactobacillus Acidophilus [Acidophilus] 2 tab PO BID 12/16/19 HYDROmorphone tablet [Dilaudid] 2 mg PO Q3H PRN PRN 5 Days tab 12/18/19 Insulin Glargine [Lantus SoloStar Pen] 40 units SC BID 12/18/19 Insulin Lispro [Humalog KwikPen] See Protocol SC ACHS 12/18/19 Nicotine [Nicoderm Cq] 21 mg TRANSDERM. DAILY 12/18/19 Primary Care Physician: Janel Taylor MD [Primary Care Provider] - Test Results: Test results from this visit will be discussed in further detail at your follow- up appointment, if applicable.
--- NOTE | 2019-12-23 17:15 | OP.PCM_ITS ---
Report of Operation Date of Procedure: 12/23/19 Pre-Operative Diagnosis: Displaced closed left trimalleolar ankle fracture, Left ankle charcot neuroarthropathy Post-Operative Diagnosis: Same Surgery/Procedure Performed:: Open reduction internal fixation of left ankle trimalleolus fracture/[facility] health care / medical job titles: yes - Dr. Lauren Santamaria Type of Anesthesia:: Spinal Specimen's removed: None Estimated Blood Loss (mL): 20mL Description of Procedure: Indications: This is a 54 year old female with multiple medical problems who sustained a left trimalleolar ankle fracture. She relates she was just standing and ankle broke. Given her uncontrolled diabetes and findings this is consistent with Charcot neuroarthropathy. Xrays and CT scan obtained, there was trimalleolar ankle fracture with displacement present. Patient had closed reduction in the ER and was splinted. Surgery was delayed due to patient being on anticoagulation. Patient elected to proceed forward with open reduction internal fixation of the trimalleolar ankle fracture. The procedure was reviewed with her in detail. The rationale of the procedure was reviewed. The goals and the expectations were discussed and reviewed. The possible benefits vs risks and all potential complications were discussed and reviewed with the patient. Advised patient risks include but not limited to are pain, swelling, blood clot, need further surgery, complex regional pain syndrome, bleeding, loss of function, weakness, delayed healing, nonhealing, deformity, arthritis, scarring, loss of limb, loss of life. Explained to patient she is very high risk for complications with nonhealing and ultimate loss of limb or life due to her multiple comorbidities and her very poor health. The patient expressed understanding and agreement, and elected to proceed forward with the procedure. She would like an attempt at limb salvage. All of patient's questions were answered. The consent forms were reviewed with patient and the patient freely signed them. No guarantees were given or implied. I have reviewed with her in great detail the importance of tobacco cessation as well as proper blood sugar control to help optimize healing. Operative Procedure: The patient was brought back to the operating room and was placed on the operating room table in the supine position. The patient was carefully secured to the operating room table with a safety belt around their waist. The patient received 900 milligrams of IV Clindamycin for antibiotic prophylaxis. The anesthesia team gave the patient spinal anesthesia and sedation. A well padded pneumatic tourniquet was applied around the left thigh. The left lower extremity was scrubbed, prepped, and draped in the usual aseptic fashion. The left foot/ankle was elevated for 3 minutes and the thigh pneumatic tourniquet was inflated to 300mmHg. The ankle was noted to be very unstable due to the trimalleolar fracture. There were no fracture blisters or evidence of ischemia. Lateral malleolus and distal tib/fib syndesmosis: Using a 15 blade, a skin incision was made overlying the lateral malleolus. Careful dissection was completed down to the lateral malleolus fracture. The periosteum was left intact. There was an oblique lateral malleolus fracture, which was comminuted. The bone was very soft. The fibula was brought out to length and was rotated b ack to normal position, we initially attempted to fixate this with a fibular raissa and 2 syndesmotic screws; we also fixated the medial malleolus as noted below, once completed however it was noted the lateral malleolus was in poor alignment with malrotation, shortening and instability. I believe this is from soft bone that was comminuted and the raissa was not providing proper fixation to the lateral malleolus; therefore the fibular raissa was removed. Once removed, the lateral malleolus was realigned back into anatomic alignment and the fracture was fixated using rigid open reduction internal fixation technique with 1 Arthrex a titanium distal fibular plate, which was applied across the fracture site using a combination of 2.7mm locking screws distally and 3.5mm locking and cortical screws proximally through the plate. There was distal tib/fib syndesmosis instability and was reduced into anatomic alignment, we did try to place some tightropes, however due to soft bone there was very poor purchase, these were removed, and ultimately we were able to get 2 syndesmotic screws placed through the plate, parallel to the ankle joint and from posterior to anterior with good purchase and providing good reduction and stability. We tied some fibertape around the comminuted pieces of the distal fibula to marine pipefitter helper healing. 3mL of DBX was placed at the fibular fracture comminuted site to marine pipefitter helper healing as well. There fracture was reduced, very stable, and in good position. This was confirmed visually as well as using intra operative fluoroscopy. Medial malleolus: A skin incision was made overlying the medial malleolus using a 15 scalpel blade. Careful blunt dissection was completed down to the medial malleolus where the fracture was identified, it was displaced as well. There was soft tissue inter position between the fracture fragments. This was composed of periosteum. The periosteum was moved out from in between the fracture fragments and the medial malleolus was reduced back manually into normal position. The medial malleolus fracture site was fixated with two 4.0mm Arthrex cannulated screws. There fracture was reduced, stable, and in good position. This was confirmed visually as well as using intra operative fluoroscopy. There was good bone to bone contact. The posterior fragment was small and did not need to be fixated. At the end of the procedure the ankle was carefully checked, and there was noted to be excellent stability to the ankle joint, range of motion was smooth and gliding normally. There was no popping, clicking, or crepitus present. Intraoperative fluoroscopy was used to check the site and it was noted fibular length and tib fib overlap was normal, ankle mortise with medial and lateral gutters in normal position/alignment with good positioning of the plate and screws. There was good bone to bone alignment of the fracture sites. There was excellent stability to the ankle / fracture site. The ankle was stressed under fluoroscopy and negative anterior drawer, normal talar tilt, no medial gutter gapping with external stress test, and no gapping or instability with Cotton test as noted above at end of procedure. The surgical site was flushed out with copious amounts of normal saline solution. The subcutaneous tissue was reapproximated using 3-0 Vicryl, and the skin was 3-0 Nylon. A dressing was applied which consisted of betadine soaked adaptic, 4x4 gauze, kerlix, webril, lukas bandages, and well padded below knee posterior splint w/ heel offloaded. The pneumatic tourniquet was deflated at 120 minute sandra, and it was noted all hemostasis was achieved. There was immediate return of vascular flow to the foot/ankle, CFT < 2 seconds, and normal temperature present. Also of note, all vital structures, including all vital neurovascular and tendon structures were properly identified, protected and retracted as necessary. The patient tolerated the above procedure well and anesthesia well with no complications. The patient was transported to the recovery room in good condition and vital signs stable. Post op orders were placed, no weightbearing to the foot, and keep foot elevated. The patient will be followed as in the TCU for post op pain control and observation. Post operative xrays were obtained in the recovery room and confirmed proper ankle alignment and hardware intact. The patient also received a lower extremity popliteal block (left) per the anesthesia time in the post operative recovery room. Of note patient's sister, Jessica, was present preoperative and post operatively and discussed the above with her with patient's permission. Grafts/Implants Used: 1 arthrex fibular plate w/ screws - Complications None
--- NOTE | 2019-12-23 17:35 | RAD_ITS ---
STUDY: X-RAY - LEFT ANKLE REASON FOR EXAM: Female, 54 years old. POST OP LEFT ANKLE TECHNIQUE: 3 view(s) of the ankle. COMPARISON: 12/20/2019. FINDINGS: Status post open reduction internal fixation of the left ankle. Lateral plate and screws fix the distal fibular shaft fracture. Alignment is anatomic. 2. Screws fix the medial malleolar fracture. Alignment is anatomic. Posterior tibial fracture fragment is identified with 3 mm posterior displacement of the fracture fragment. There is minimal lateral subluxation of the talus relative to the distal tibia. RAD/Ankle min 3 Views IMPRESSION: Anatomic alignment status post internal fixation of the ankle. Electronically Signed: Sharon Reilly MD at 23:50 EDT Tel , Service support ,
[2019-12-23 18:50] LABS: Bedside Glucose 144 mg/dL (70-110)
== END 2019-12-23 18:36 | disposition skilled nursing facility (03) ==
LOC: SDC 12:25 → AC 12:26
PROVIDERS: PCP Family Medicine; Referring Provider Podiatrist; Visit Provider Podiatrist
PROC: (CPT 27822; principal; 2019-12-23 12:40)
DX: S82.852A Displaced trimalleolar fracture of left lower leg, initial encounter for closed fracture (principal); E11.610 Type 2 diabetes mellitus with diabetic neuropathic arthropathy; A52.16 Charcot's arthropathy (tabetic); E11.65 Type 2 diabetes mellitus with hyperglycemia; I10 Essential (primary) hypertension; M06.9 Rheumatoid arthritis, unspecified; J45.909 Unspecified asthma, uncomplicated; X58.XXXA Exposure to other specified factors, initial encounter; Y93.9 Activity, unspecified; Y92.9 Unspecified place or not applicable; Y99.9 Unspecified external cause status; Z78.0 Asymptomatic menopausal state; Z79.01 Long term (current) use of anticoagulants; Z79.4 Long term (current) use of insulin; Z79.899 Other long term (current) drug therapy; Z87.891 Personal history of nicotine dependence; Z95.5 Presence of coronary angioplasty implant and graft
CPT/HCPCS: 01480; 27822; 64445; 73610; 76000; 82962; 94640; C1713; J7120; J2405

== ENCOUNTER 2019-12-24 02:41 | Emergency (ER) | payer MEDICARE, MEDICAID, SELFPAY ==
[2019-12-23 12:40] VITALS: BMI 44.2
[2019-12-24 02:43] VITALS: BP 125/73; PULSE 96; RESP 27; TEMP 37.3; O2SAT 95; BMI 44.2
--- NOTE | 2019-12-24 02:53 | ED.VIS.GEN ---
History of Present Illness Chief Complaint: Alt LOC Narrative: Patient had left ankle ORIF earlier today, she was taken back to the TCU, they thought she may have been somewhat lethargic postop, they have been withholding her analgesia. She was transferred here they thought she may have been a little too lethargic after surgery. When the patient arrives to the emergency department she is lucid, coherent, she is speaking in full sentences she is not slurring her speech. She is on 2 L of oxygen, however she is on oxygen at home as needed. Past Medical History - Allergies and Home Meds Allergies/Adverse Reactions: Allergies amoxicillin Allergy (Verified 12/23/19 12:34) Itching erythromycin base Allergy (Verified 12/23/19 12:34) Unknown methadone Allergy (Verified 12/23/19 12:34) Itching metolazone Allergy (Verified 12/23/19 12:34) Unknown Penicillins Allergy (Verified 12/23/19 12:34) Hives Sulfa (Sulfonamide Antibiotics) Allergy (Verified 12/23/19 12:34) Hives acetaminophen [From Percocet] Adverse Reaction (Verified 12/23/19 12:34) Itching clarithromycin [From Biaxin] Adverse Reaction (Verified 12/23/19 12:34) Nausea ibuprofen Adverse Reaction (Verified 12/23/19 12:34) 3 BLEEDING ULCERS 3 BLEEDING ULCERS morphine Adverse Reaction (Verified 12/23/19 12:34) HEADACHE HEADACHE oxycodone [From Percocet] Adverse Reaction (Verified 12/23/19 12:34) Itching Primary Care Physician: Janel Taylor MD [Primary Care Provider] - Past Medical History: - - Heart disease, hypertension, COPD. Otherwise reviewed. Surgical History: angioplasty - Cardiac stent., appendectomy, cholecystectomy, herniorrhaphy, total hip arthroplasty - Right., tonsillectomy, - - Right lower extremity surgery x3 as well as bone grafting, gastric bypass. Smoking Status: Current every day smoker - Family History Sibling Family History: Family History (Last Reviewed 12/16/19 @ 21:[address] Jese Strauss DO) Mother Heart disease Cancer Father Hypertension Arthritis Hyperlipemia Grandmother Breast cancer Heart disease Grandfather Heart disease Family History: Reports: Hypertension Maternal Family History: Family History (Last Reviewed 12/16/19 @ 21:[address] Jese Strauss DO) Mother Heart disease Cancer Father Hypertension Arthritis Hyperlipemia Grandmother Breast cancer Heart disease Grandfather Heart disease Family History: Reports: Cancer, Heart Disease Paternal Family History: Family History (Last Reviewed 12/16/19 @ 21:[address] Jese Strauss DO) Mother Heart disease Cancer Father Hypertension Arthritis Hyperlipemia Grandmother Breast cancer Heart disease Grandfather Heart disease Family History: Reports: High Cholesterol, Heart Disease, Hypertension Review of Systems All systems negative except as indicated General: Denies: Fever Cardiovascular: Denies: Chest pain Respiratory: Reports: - - She is on 2 L and she denies any dyspnea. Denies: Dyspnea, Cough Gastrointestinal: Denies: Nausea, Vomiting Musculoskeletal: Reports: Extremity Pain Skin: Denies: Rash Neurological: Denies: Headache Hematologic: Denies: Easy bruising, Easy bleeding Allergy: Denies: Swelling of the mouth, Swelling of the tongue Physical Exam Vital Signs/Narrative: Vital Signs Temp Pulse Resp BP Pulse Ox 12/24/19 02:43 99.2 F H 96 27 H 125/73 H 95 General: - - Patient is lucid and coherent, she is actively complaining of left ankle pain. Head: Normocephalic ENT: Moist mucous membranes Cardiovascular: Regular rate, Regular rhythm Respiratory: No distress, - - Scant end expiratory wheezing but no rales. She is speaking in full sentences. Abdomen: Soft, Nontender Back: Nontender Extremities: - - There is a postop dressing over the left ankle, since this was recent surgery I did not remove the dressing. Toes are exposed with capillary refill of less than 2 seconds. Neurological: Alert, Normal Strength, Normal Sensation Diagnostic/Tx/Re-eval - Medical Decision Making Patient is observed, she appears well she does have a urinary tract infection there is temperature that is slightly above normal but not febrile. There is leukocytosis. I will treat her, she can be released back to the [facility], this is part of our hospital and can get the monitored care she needs including antibiotics. If anything changes they can send her back to the emergency department although she is quite stable. ED Disposition - Plan for ED Patient: Disposition: Home or Assisted Living Diagnosis: UTI (urinary tract infection) Instructions: ED CYSTITIS Female Adult Prescriptions: Ciprofloxacin [Cipro] 500 mg PO BID #14 tab Prescription Printed Referrals: Janel Taylor MD [Primary Care Provider] - 3-5 Days Carlos Monae Chi, MD [COURTESY STAFF PHYSICIAN] - 2 Days
--- NOTE | 2019-12-24 02:57 | RAD_ITS ---
STUDY: X-RAY CHEST REASON FOR EXAM: Female, 54 years old. HYPOXIA TECHNIQUE: Single AP portable view of the chest. COMPARISON: 12/23/2019. FINDINGS: There are no confluent pulmonary infiltrates. There is a left epicardial fat pad. There is no demonstrated pleural abnormality. Normal size heart. Normal mediastinum and alden. Normal visualized aortic arch and descending thoracic aorta. There are no demonstrated acute fractures or destructive bone lesions. There is no demonstrated abnormality of the visualized soft tissue structures of the upper abdomen. RAD/Chest 1 View (Portable) IMPRESSION: No evidence for acute cardiopulmonary pathology. Electronically Signed: Jason Butt MD at 3:25 EDT , Service support ,
[2019-12-24 02:58] LABS: Absolute Lymphocyte Count 0.51 X10^3/uL (0.83-4.51); Absolute Neutrophil Count 16.2 X10^3/uL (2.0-7.7); Basophil# 0.06 X10^3/uL; Basophil% 0.3 % (0-1); Eosinophil# 0.01 X10^3/uL; Eosinophils% 0.1 % (0-5); Hematocrit 36.8 % (37-47); Hemoglobin 11.9 g/dL (12.0-15.0); Lymphocyte # 0.51 X10^3/ul (4.0); Lymphocyte % 2.6 % (19-41); Mean Corp Hgb Conc 32.3 g/dL (32-36); Mean Corpuscular Hgb 30.8 pg (27.0-32.0); Mean Corpuscular Volume 95.3 fL (81-99); Mean Platelet Vol. 10.1 fl (6.2-12.0); Monocyte# 2.45 X10^3/uL; Monocyte% 12.7 % (0-10); NRBC Flagged by Analyzer 0 % (0-5); Neutrophil # 16.18 X10^3/uL (2.7-7.7); Neutrophil % 83.8 % (47-70); POSITIVE DIFFERENTIAL YES; Platelet Count 220 K/mm3 (150-450); RBC Distribution Width CV 14.4 % (11.6-14.6); RBC Distribution Width SD 50.1 fl (35.1-43.9); Red Blood Count 3.86 M/mm3 (4.2-5.4); White Blood Count 19.3 K/mm3 (4.4-11.0)
[2019-12-24] MEDS: oxyCODONE 5 MG Tablet PO (03:02)
[2019-12-24 03:12] LABS: Differential Indicated SCAN CRITERIA MET
[2019-12-24 03:17] LABS: ALB/GLOB Ratio 0.7 RATIO (0.9-2.4); AST(SGOT) 76 U/L (15-37); Alanine Aminotransfer ALT/SGPT 107 U/L (13-56); Albumin, Serum 2.7 g/dL (3.2-5.0); Alkaline Phosphatase 178 U/L (45-117); Anion Gap 3 (5-15); BUN 12 mg/dL (7-18); BUN/Creat Ratio 13.6 RATIO (10-20); Calcium,Total 9.4 mg/dL (8.5-10.1); Chloride 99 mmol/L (98-107); Creatinine, Serum 0.88 mg/dL (0.55-1.02); EST Glomerular Filtration Rate 71 mL/min (>60); Est Glom Filt Rate - Afr Amer 85 mL/min (>60); Estimated Creatinine Clearance 60.46 ml/min; Globulin 4.1 g/dL (2.2-4.2); Glucose 198 mg/dL (74-106); Potassium 4.6 mmol/L (3.5-5.1); Protein, Total 6.8 g/dL (6.4-8.2); Sodium Level 133 mmol/L (136-145)
[2019-12-24 03:19] LABS: Differential Comment SCANNED
[2019-12-24 04:43] VITALS: BP 138/72; PULSE 96; RESP 24; O2SAT 93
[2019-12-24 05:37] LABS: Mucous, Urine 0 SEEN /hpf (<or=2+); Squamous Epithelial Cells - UA 0 SEEN /hpf (5-10)
[2019-12-24 05:41] LABS: Color, Urine Straw (Yellow); Glucose, Dipstick 50 mg/dl (Normal); Ketone-Dipstick 5 mg/dl (Negative); Leukocyte Esterase-Dipstick 100 /ul (Negative); Nitrite-Dipstick Negative (Negative); Occult Blood-Urine Negative /ul (Negative); Protein-Dipstick Negative (Negative); Urine Bilirubin Dipstick 1 mg/dL (Negative); Urine Clarity Clear (Clear); Urine Urobilinogen 8 mg/dl (Normal)
[2019-12-24 05:47] LABS: Bacteria 1+ /hpf (None Seen); Red Blood Cells-Urine 0-5 SEEN /hpf (0-5); White Blood Cells 10-25 SEEN /hpf (0-5)
[2019-12-24] MEDS: HYDROmorphone 0.5 MG/0.5 ML SYRINGE IV (05:51)
[2019-12-24 05:53] VITALS: BP 133/71; PULSE 96; RESP 19; O2SAT 94
[2019-12-24] MEDS: Ceftriaxone 1 GM/50 ML BAG IV (06:02)
[2019-12-24 06:05] VITALS: BP 136/67; PULSE 94; RESP 21; O2SAT 93
--- NOTE | 2019-12-24 06:14 | ED.RN ---
report called to bozena
[2019-12-24 07:21] LABS: Bedside Glucose 207 mg/dL (70-110)
[2019-12-24 13:08] LABS: Pathologist Review Reviewed
== END 2019-12-24 06:20 | disposition skilled nursing facility (03) ==
PROVIDERS: Emergency Provider Emergency Medicine; PCP Family Medicine
DX: N39.0 Urinary tract infection, site not specified (principal); J44.9 Chronic obstructive pulmonary disease, unspecified; I10 Essential (primary) hypertension; F17.200 Nicotine dependence, unspecified, uncomplicated; Z79.01 Long term (current) use of anticoagulants; Z79.4 Long term (current) use of insulin; Z79.899 Other long term (current) drug therapy; Z98.84 Bariatric surgery status; Z90.49 Acquired absence of other specified parts of digestive tract; Z95.5 Presence of coronary angioplasty implant and graft
CPT/HCPCS: 71045; 80053; 81001; 82962; 85025; 87040; 87086; 96365; 96375; 99283; A4216

== ENCOUNTER 2020-01-14 16:38 | Emergency (ER) | payer MEDICARE, MEDICAID, SELFPAY ==
[2020-01-14 16:39] VITALS: BP 122/70; PULSE 66; RESP 16; TEMP 36.6; O2SAT 94; BMI 44.2
--- NOTE | 2020-01-14 18:43 | ED.DCSUM_ITS ---
- ER Visit Summary Date of Service: 01/14/20 Chief Complaint: Left foot and ankle cellulitis History of Present Illness: The patient is a [address] diabetes, CAD, PR, stents, COPD, pulmonary emboli anticoagulated Plavix and Eliquis. Patient has known cellulitis in her left ankle and foot. She has been treated in the transitional care unit here at the hospital for the last 4 weeks. She was on IV antibiotics. Basically the patient signed out to TCU today AGAINST MEDICAL ADVICE because 1 she wanted to smoke and to she decided she could not handle being admitted any longer. She was called by her strawhat inspector and packer Dr. eG Mitchell and she now comes back for readmission. Physical Examination: Vital signs stable afebrile. Patient is in no acute distress. HEENT exam unremarkable. Lungs coarse breath sounds.. Heart regular rhythm no murmur. Abdomen soft nontender. Moving all 4 extremities. Her left lower extremity has a posterior splint with Robbi wrap. She is able to wiggle her toes. I did not take down the dressing. Neurologically she is awake and alert. No focal motor deficits. Test Results: None Emergency Department Course and Treatment: I have already spoken to Dr. Raya medical science liaison for the TCU and also the patient's strawhat inspector and packer Dr. Hema Mitchell We are trying need the patient readmitted to the transitional care unit. Treatment Plan: Admit to the TCU for continued IV antibiotic therapy. Disposition: TCU readmission Impression: Acute left ankle and foot cellulitis Status post left ankle fracture with surgery History independent diabetes History of COPD History of CAD with stents anticoagulated on Eliquis This note was generated with Yogi[employer] dictation software. It may contain incorrect words, spelling, and punctuation that were not noted in review of the chart prior to signing ED Disposition - Plan for ED Patient: Referrals: Janel Taylor MD [Primary Care Provider] -
--- NOTE | 2020-01-14 18:53 | CM.ED ---
Social Work Consult: SNF placement Informant: Dr. Feng Patient left TCU AMA this morning per chart review. Patient is now wanting to return to TCU per Dr. Feng. Dr. Feng has spoken with Dr. Monae (certified ophthalmic medical technician of TCU) and Dr. Mitchell (patient quality control lead). Dr. Monae and Dr. Mitchell agreeable with patient return to TCU. Telephone call to Falguni Goldsmith, TCU senior administrator support. Falguni is agreeable to patient returning to TCU. This social work lecturer spoke with patient in room. Introduced self and social work lecturer role. Patient is agreeable to speak with this social work lecturer. Patient is confirming to want to return to TCU. Patient reports It is just a lot to be stuck in a room. Patient reports but I need to go back. Patient reports to be aware that patient needs to continue with I.V. therapy. Patient with pleasant and engaged affect. This social work lecturer updated patient that patient is able to return to TCU per patient doctors and TCU senior administrator support. Patient with no further questions. This social work lecturer updated Dr. Feng on patient being approved to return to TCU. PLAN: Admit to TCU. SUSSY Dias
[2020-01-14 19:10] VITALS: BP 121/62; PULSE 66; RESP 16; TEMP 36.7; O2SAT 95
--- NOTE | 2020-01-14 19:13 | ED.RN ---
Addendum entered by Garry Alatorre 01/15/20 14:00: The patient actually left TCU against medical advice. She did not elope as previously stated. Original Note: Pt eloped from TCU earlier today and returned at the request of Paula Moreno. She is a direct admit waiting on staffing.
[2020-01-14] MEDS: HYDROmorphone 1 MG/ML Syringe IV (19:28)
--- NOTE | 2020-01-14 19:43 | ED.RN ---
TCU RN will call this RN back for report.
[2020-01-14 19:44] VITALS: BP 121/62; PULSE 66; RESP 16; TEMP 36.7; O2SAT 95
--- NOTE | 2020-01-14 19:55 | ED.RN ---
called report to Beatriz in TCU.
== END 2020-01-14 20:11 | disposition home or self-care (01) ==
PROVIDERS: Emergency Provider Emergency Medicine; PCP Family Medicine
DX: L03.116 Cellulitis of left lower limb (principal); S82.892D Other fracture of left lower leg, subsequent encounter for closed fracture with routine healing; X58.XXXD Exposure to other specified factors, subsequent encounter; I25.10 Atherosclerotic heart disease of native coronary artery without angina pectoris; E11.9 Type 2 diabetes mellitus without complications; J44.9 Chronic obstructive pulmonary disease, unspecified; Z72.0 Tobacco use; Z79.02 Long term (current) use of antithrombotics/antiplatelets; Z79.01 Long term (current) use of anticoagulants; Z79.899 Other long term (current) drug therapy; I25.2 Old myocardial infarction; Z95.5 Presence of coronary angioplasty implant and graft
CPT/HCPCS: 96374; 99285

== ENCOUNTER 2020-03-16 15:34 | Emergency (ER) | payer MEDICARE, MEDICAID, SELFPAY ==
[2020-02-14 14:11] VITALS: BMI 42.5
[2020-03-16 15:36] VITALS: BP 166/80; PULSE 123; RESP 22; TEMP 37.2; O2SAT 96
[2020-03-16 15:37] VITALS: BP 166/80; PULSE 123; RESP 22; TEMP 37.2; O2SAT 96; BMI 42.6
--- NOTE | 2020-03-16 16:04 | EKG12_ITS ---
Test Reason : CP Blood Pressure : / mmHG Vent. Rate : 103 BPM Atrial Rate : 103 BPM P-R Int : 138 ms QRS Dur : 086 ms QT Int : 346 ms P-R-T Axes : 022 020 048 degrees QTc Int : 453 ms Sinus tachycardia with frequent Premature ventricular complexes Cannot rule out Anterior infarct , age undetermined Abnormal ECG Confirmed by LORIE TAFOYA, DESTINY ([id number]), film or videotape editor MARTHA SCOTT ([id number]) on 03/18/2020 8:18:33 AM Referred By: AYDEN Confirmed By:DESTINY MELO MD
[2020-03-16] MEDS: 0.9% Normal Saline 1,000 ML 1000 ML IV (16:05)
[2020-03-16] MEDS: Metoclopramide 10 MG/2 ML Vial IV (16:17)
--- NOTE | 2020-03-16 16:19 | ED.DCSUM_ITS ---
History of Present Illness Chief Complaint: Nausea/Vomiting Informant: Patient Onset: Weeks Context: Sudden Onset Timing: Intermittent, Waxes and wanes Quality: Chills, cough, nausea, vomiting diarrhea Location: Generalized Current Severity: Mild Maximum Severity: Severe Worsened by: Nothing specific Relieved by: Nothing Associated Symptoms: Hematochezia prior to diarrhea, orthostatic symptoms, thirst Narrative: Patient is a middle-age woman with history of hypertension, coronary disease, type 2 diabetes who presents with chills, cough that is nonproductive, rhinorrhea and congestion, nausea, vomiting diarrhea. She reports vomiting 10+ times a day. She states she is had 5 loose stools. Symptoms started approximate 1 week ago. She denies subjective or objective fever. She denies headache. She denies visual, ocular or auditory symptoms. She denies neck pain or neck stiffness. She denies chest pain. She denies abdominal pain. She does report decreased urine output. She denies dysuria, urgency or hematuria. She denies rash. She denies cerebellar dysfunction. She denies paresthesia, anesthesia or motor weakness. She denies ill contacts. Prior similar symptoms: No Recent Illness/Hospitalization: No - Past Medical History (1) PAD (peripheral artery disease) Status: Acute (2) Syncope Status: Acute (3) Anxiety Status: Chronic (4) Benign essential hypertension Status: Chronic (5) CAD (coronary artery disease) Status: Chronic (6) COPD (chronic obstructive pulmonary disease) Status: Chronic (7) Cataract Status: Chronic (8) Chronic narcotic use Status: Chronic (9) Depression Status: Chronic (10) Diabetes mellitus Status: Chronic (11) Diabetic polyneuropathy Status: Chronic (12) Gastroesophageal reflux disease Status: Chronic (13) Hip osteoarthritis Status: Chronic Comment: with chronic pain-right hip (14) Hyperlipidemia Status: Chronic (15) Insomnia Status: Chronic (16) Iron deficiency Status: Chronic (17) Morbid obesity Status: Chronic (18) Parathyroid abnormality Status: Chronic (19) Peptic ulcer Status: Chronic (20) Schizophrenia Status: Chronic (21) Spinal stenosis of lumbar region at multiple levels Status: Chronic (22) Tobacco abuse Status: Chronic Past Medical History - Allergies and Home Meds Allergies/Adverse Reactions: Allergies amoxicillin Allergy (Verified 02/14/20 14:10) Itching erythromycin base Allergy (Verified 02/14/20 14:10) Unknown methadone Allergy (Verified 02/14/20 14:10) Itching metolazone Allergy (Verified 02/14/20 14:10) Unknown Penicillins Allergy (Verified 02/14/20 14:10) Hives Sulfa (Sulfonamide Antibiotics) Allergy (Verified 02/14/20 14:10) Hives clarithromycin [From Biaxin] Adverse Reaction (Verified 02/14/20 14:10) Nausea ibuprofen Adverse Reaction (Verified 02/14/20 14:10) 3 BLEEDING ULCERS 3 BLEEDING ULCERS morphine Adverse Reaction (Verified 02/14/20 14:10) HEADACHE HEADACHE oxycodone [From Percocet] Adverse Reaction (Verified 02/14/20 14:10) Itching Primary Care Physician: Janel Taylor MD [Primary Care Provider] - Prior records reviewed: Yes Surgical History: angioplasty - Cardiac stent., appendectomy, cholecystectomy, herniorrhaphy, total hip arthroplasty - Right., tonsillectomy, - - Right lower extremity surgery x3 as well as bone grafting, gastric bypass. Smoking Status: Current every day smoker Alcohol: Rare Drugs: None - Family History Sibling Family History: Family History (Last Reviewed 02/14/20 @ 14:36 by Rosanna Hampton NP, DOCUMENT REVIEW SPECIALIST-C) Mother Heart disease Cancer Father Hypertension Arthritis Hyperlipemia Grandmother Breast cancer Heart disease Grandfather Heart disease Family History: Reports: Hypertension Paternal Family History: Family History (Last Reviewed 02/14/20 @ 14:36 by Rosanna Hampton NP, DOCUMENT REVIEW SPECIALIST-C) Mother Heart disease Cancer Father Hypertension Arthritis Hyperlipemia Grandmother Breast cancer Heart disease Grandfather Heart disease Family History: Reports: High Cholesterol, Heart Disease, Hypertension Maternal Family History: Family History (Last Reviewed 02/14/20 @ 14:36 by Rosanna Hampton NP, DOCUMENT REVIEW SPECIALIST-C) Mother Heart disease Cancer Father Hypertension Arthritis Hyperlipemia Grandmother Breast cancer Heart disease Grandfather Heart disease Family History: Reports: Cancer, Heart Disease Review of Systems General: Reports: Chills, Malaise. Denies: Fever, Subjective, Sweats Eyes: Denies: Visual changes - bilaterally, Blurred Vision - bilaterally ENT: Reports: Rhinorrhea. Denies: Bilateral ear pain, Sore throat Cardiovascular: Denies: Chest pain, Palpitations Respiratory: Reports: Cough. Denies: Dyspnea, Sputum, Dyspnea on exertion, Orthopnea, Paroxysmal nocturnal dyspnea Gastrointestinal: Reports: Nausea, Vomiting, Diarrhea, Hematochezia. Denies: Melena Genitourinary: Denies: Dysuria, Hematuria, Frequency Musculoskeletal: Denies: Myalgias, Arthralgias, Neck pain, Back pain, Swelling, Extremity Pain Skin: Denies: Rash, Wounds Neurological: Denies: Headache, Weakness, Parasthesia Psych: Reports: Depression, Anxiety. Denies: Suicidal thoughts Endocrine: Denies: Polyuria, Polydipsia Hematologic: Denies: Easy bruising, Easy bleeding Physical Exam Vital Signs/Narrative: Vital Signs Temp Pulse Resp BP Pulse Ox 03/16/20 15:37 99.0 F 123 H 22 H 166/80 H 96 03/16/20 15:36 99.0 F 123 H 22 H 166/80 H 96 Inital Vital Signs reviewed: Yes General: Well nourished, Well developed, Obese, - - Patient appears ill. Head: Normocephalic, Atraumatic Eyes: Perrl, EOMI. Negative for: Pale conjunctiva, Scleral icterus ENT: TM's clear, Dry mucous membranes. Negative for: No rhinorrhea, Nasal congestion, Sinus tenderness Neck: Supple, Nontender, No lymphadenopathy, No JVD Cardiovascular: Regular rate, Regular rhythm, No murmurs, Normal S1, Normal S2 Respiratory: No distress, CTA bilaterally, Chest nontender Abdomen: Soft, Nontender, Nondistended, Normal bowel sounds Rectal: Deferred Back: Nontender, Normal Inspection Extremities: Nontender, No edema. Negative for: Tenderness Skin: Normal color, No rash Neurological: Alert, Oriented x3, Cranial nerves II-XII grossly intact, Normal Strength, Normal Sensation, Normal DTR Psychological: - - Affect is flat Diagnostic/Tx/Re-eval Chest X-Ray - ED: 1 View, Read by ED Physician, Normal, Heart, Lungs, Mediasti num, Bony Structures, No Acute Disease, Chronic Changes Impressions Chest X-Ray 03/16/20 17:10 IMPRESSION: Normal x-ray examination of the chest. Electronically Signed: Jerome El MD at 17:27 EST Tel , Service support , 03/16/20 17:10 Chest 1 View (Portable) [RAD] Stat Laboratory Results 03/16/20 03/16/20 03/16/20 16:15 16:15 16:15 WBC 16.6 H RBC 5.63 H Hgb 15.0 Hct 45.0 MCV 79.9 L MCH 26.6 L MCHC 33.3 RDW Std Deviation 51.4 H RDW Coeff of Kaycee 18.4 H Plt Count 404 MPV 8.9 Immature Gran % (Auto) 0.500 Neut % (Auto) 87.1 H Lymph % (Auto) 6.3 L Edwards % (Auto) 5.5 Eos % (Auto) 0.1 Baso % (Auto) 0.5 Absolute Neuts (auto) 14.5 H Absolute Lymphs (auto) 1.05 Nucleated RBC % 0 Sodium 131 L Potassium 3.2 L Chloride 99 Carbon Dioxide 24.0 Anion Gap 8 BUN 2 L Creatinine 0.89 Estim Creat Clear Calc 59.78 Est GFR (MDRD) Af Amer 85 Est GFR (MDRD) Non-Af 70 BUN/Creatinine Ratio 2.2 L Glucose 249 H Lactic Acid 3.4 H* Calcium 9.4 COVID-19 ([facility]) POC Glucose 03/16/20 03/16/20 16:20 17:07 WBC RBC Hgb Hct MCV MCH MCHC RDW Std Deviation RDW Coeff of Kaycee Plt Count MPV Immature Gran % (Auto) Neut % (Auto) Lymph % (Auto) Edwards % (Auto) Eos % (Auto) Baso % (Auto) Absolute Neuts (auto) Absolute Lymphs (auto) Nucleated RBC % Sodium Potassium Chloride Carbon Dioxide Anion Gap BUN Creatinine Estim Creat Clear Calc Est GFR (MDRD) Af Amer Est GFR (MDRD) Non-Af BUN/Creatinine Ratio Glucose Lactic Acid Calcium COVID-19 ([facility]) Negative POC Glucose 249 H White count is elevated which is a nonspecific abnormality. This is all likelihood due to the infectious viral symptoms she has. Blood sugar is elevated. CO2 and anion gap are normal. Lactate elevated 3.4. This is probably due to diabetes and her diabetic medication. Sodium is slightly low at 131. Potassium is low at 3.2. Renal function is normal. - Medical Decision Making Daisy patient appears dehydrated. Suspect viral illness. Will obtain blood work to assess blood sugar, CO2/anion gap, renal function and electrolytes. Concern with hyponatremia. She was treated with Zofran in route. She states this did not help. She was given 10 mg of Reglan since she is diabetic with diabetic neuropathy. She states no effect. She was given additional dose of Zofran. Since patient had no vomiting during her 3-hour stay p.o. challenge was ordered as well as p.o. Imodium and Bentyl. Lactate is elevated. This may be due to diabetes. Single view chest x-ray was obtained as well as Covid test. Chest x-ray is negative. Covid test was negative. 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
[2020-03-16 16:38] LABS: Anion Gap 8 (5-15); BUN 2 mg/dL (7-18); BUN/Creat Ratio 2.2 RATIO (10-20); Calcium,Total 9.4 mg/dL (8.5-10.1); Chloride 99 mmol/L (98-107); Creatinine, Serum 0.89 mg/dL (0.55-1.02); EST Glomerular Filtration Rate 70 mL/min (>60); Est Glom Filt Rate - Afr Amer 85 mL/min (>60); Estimated Creatinine Clearance 59.78 ml/min; Glucose 249 mg/dL (74-106); Potassium 3.2 mmol/L (3.5-5.1); Sodium Level 131 mmol/L (136-145)
[2020-03-16 16:44] LABS: Absolute Lymphocyte Count 1.05 X10^3/uL (0.83-4.51); Absolute Neutrophil Count 14.5 X10^3/uL (2.0-7.7); Basophil# 0.09 X10^3/uL; Basophil% 0.5 % (0-1); Eosinophil# 0.01 X10^3/uL; Eosinophils% 0.1 % (0-5); Lymphocyte # 1.05 X10^3/ul (4.0); Lymphocyte % 6.3 % (19-41); Mean Corp Hgb Conc 33.3 g/dL (32-36); Mean Corpuscular Hgb 26.6 pg (27.0-32.0); Mean Corpuscular Volume 79.9 fL (81-99); Mean Platelet Vol. 8.9 fl (6.2-12.0); Monocyte# 0.92 X10^3/uL; Monocyte% 5.5 % (0-10); NRBC Flagged by Analyzer 0 % (0-5); Neutrophil # 14.46 X10^3/uL (2.7-7.7); Neutrophil % 87.1 % (47-70); Platelet Count 404 K/mm3 (150-450); RBC Distribution Width CV 18.4 % (11.6-14.6); RBC Distribution Width SD 51.4 fl (35.1-43.9); Red Blood Count 5.63 M/mm3 (4.2-5.4); White Blood Count 16.6 K/mm3 (4.4-11.0)
[2020-03-16 17:02] LABS: Lactic Acid 3.4 mmol/L (0.4-1.9)
[2020-03-16 17:10] LABS: Bedside Glucose 249 mg/dL (70-110)
--- NOTE | 2020-03-16 17:10 | RAD_ITS ---
STUDY: X-RAY CHEST REASON FOR EXAM: Female, 54 years old. N/V/D x 1 week, poor appetite TECHNIQUE: Single AP portable view of the chest. COMPARISON: 01/13/2020 FINDINGS: The lungs are clear and expanded. There is no demonstrated pleural abnormality. Normal size heart. Normal mediastinum and alden. Normal visualized pulmonary arteries. Normal visualized aortic arch and descending thoracic aorta. Normal visualized thoracic spine. Normal visualized ribs, clavicles, and shoulders. There is no demonstrated abnormality of the visualized soft tissue structures of the upper abdomen. RAD/Chest 1 View (Portable) IMPRESSION: Normal x-ray examination of the chest. Electronically Signed: Jerome El MD at 17:27 EST Tel , Service support ,
[2020-03-16 17:46] VITALS: PULSE 109; RESP 22; O2SAT 96
[2020-03-16] MEDS: Ondansetron 4 MG/2 ML Vial IV (18:23)
[2020-03-16] MEDS: Dicyclomine 10 MG Capsule 20 MG PO (19:52)
[2020-03-16] MEDS: Loperamide 2 MG Capsule 4 MG PO (19:52)
[2020-03-16 19:55] VITALS: BP 146/83
[2020-03-16 20:20] LABS: Reflex Lactate? Y
== END 2020-03-16 19:56 | disposition home or self-care (01) ==
PROVIDERS: Emergency Provider Emergency Medicine; PCP Family Medicine
DX: B34.9 Viral infection, unspecified (principal); E87.6 Hypokalemia; E87.1 Hypo-osmolality and hyponatremia; Z20.822 Contact with and (suspected) exposure to COVID-19; I49.3 Ventricular premature depolarization; E86.0 Dehydration; R11.2 Nausea with vomiting, unspecified; K92.1 Melena; I25.10 Atherosclerotic heart disease of native coronary artery without angina pectoris; E11.69 Type 2 diabetes mellitus with other specified complication; E11.40 Type 2 diabetes mellitus with diabetic neuropathy, unspecified; E11.51 Type 2 diabetes mellitus with diabetic peripheral angiopathy without gangrene; E11.36 Type 2 diabetes mellitus with diabetic cataract; J44.9 Chronic obstructive pulmonary disease, unspecified; I10 Essential (primary) hypertension; E78.5 Hyperlipidemia, unspecified; M16.11 Unilateral primary osteoarthritis, right hip; G89.29 Other chronic pain; K21.9 Gastro-esophageal reflux disease without esophagitis; F20.9 Schizophrenia, unspecified; F32.9 Major depressive disorder, single episode, unspecified; F41.9 Anxiety disorder, unspecified; E66.01 Morbid (severe) obesity due to excess calories; F17.200 Nicotine dependence, unspecified, uncomplicated; Z79.01 Long term (current) use of anticoagulants; Z79.4 Long term (current) use of insulin; Z79.899 Other long term (current) drug therapy; Z87.11 Personal history of peptic ulcer disease; Z98.84 Bariatric surgery status; Z95.5 Presence of coronary angioplasty implant and graft; Z90.49 Acquired absence of other specified parts of digestive tract
CPT/HCPCS: 36415; 71045; 80048; 82962; 83605; 85025; 87635; 93005; 96361; 96374; 96375; 99285; A4216; J2405; U0002

== ENCOUNTER → 2020-04-02 12:53 | Outpatient (CLI) | payer MEDICARE, SELFPAY ==
[2020-03-16 15:37] VITALS: BMI 42.6
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
== END ==
PROVIDERS: PCP Family Medicine; Referring Provider Podiatrist; Visit Provider Podiatrist
DX: S82.892A Other fracture of left lower leg, initial encounter for closed fracture (principal); X58.XXXA Exposure to other specified factors, initial encounter; Y93.9 Activity, unspecified; Y92.9 Unspecified place or not applicable; Y99.9 Unspecified external cause status
CPT/HCPCS: 73700

== ENCOUNTER 2020-05-15 14:21 | Emergency (ER) | payer MEDICARE, SELFPAY ==
[2020-05-15 14:22] VITALS: BP 132/68; PULSE 71; RESP 18; TEMP 36.3; O2SAT 96; BMI 45.8
[2020-05-15 14:24] VITALS: BP 132/68; PULSE 71; RESP 18; TEMP 36.3; O2SAT 97
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
[2020-05-15] MEDS: BACITRACIN 15 GM Tube 1 APPLIC TOPICAL (15:48)
[2020-05-15 15:58] VITALS: BP 108/67; PULSE 70; RESP 18; O2SAT 97
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
== END 2020-05-15 16:02 | disposition home or self-care (01) ==
PROVIDERS: Emergency Provider Emergency Medicine; PCP Family Medicine
DX: T23.232A Burn of second degree of multiple left fingers (nail), not including thumb, initial encounter (principal); T25.232A Burn of second degree of left toe(s) (nail), initial encounter; X08.8XXA Exposure to other specified smoke, fire and flames, initial encounter; Y93.9 Activity, unspecified; Y92.9 Unspecified place or not applicable; Y99.9 Unspecified external cause status; E11.9 Type 2 diabetes mellitus without complications; I25.10 Atherosclerotic heart disease of native coronary artery without angina pectoris; J44.9 Chronic obstructive pulmonary disease, unspecified; I10 Essential (primary) hypertension; F17.210 Nicotine dependence, cigarettes, uncomplicated; Z99.81 Dependence on supplemental oxygen; Z79.84 Long term (current) use of oral hypoglycemic drugs; Z79.82 Long term (current) use of aspirin; Z79.4 Long term (current) use of insulin; Z79.899 Other long term (current) drug therapy; I25.2 Old myocardial infarction
CPT/HCPCS: 99284

== ENCOUNTER → 2020-06-01 13:12 | Outpatient (CLI) | payer MEDICARE, SELFPAY ==
[2020-05-27 14:09] VITALS: BMI 94.5
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
[2020-06-01 14:16] LABS: Hemoglobin A1c 10.2 % (3.8-5.6)
== END ==
PROVIDERS: PCP Family Medicine; Referring Provider Podiatrist; Visit Provider Podiatrist
DX: E11.9 Type 2 diabetes mellitus without complications (principal); L97.522 Non-pressure chronic ulcer of other part of left foot with fat layer exposed
CPT/HCPCS: 36415; 73630; 83036

== ENCOUNTER 2020-06-03 13:30 | Outpatient (RCR) | payer MEDICARE, MEDICAID, SELFPAY ==
[2020-05-27 14:09] VITALS: BP 123/69; PULSE 83; RESP 18; TEMP 36.1; BMI 94.5
[2020-06-03 13:35] VITALS: BP 124/89; PULSE 100; TEMP 36.1; BMI 94.5
--- NOTE | 2020-06-03 17:45 | PN.PCM_ITS ---
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 and weight management. She is a current tobacco user and cessation was reviewed. This is also imperative for wound healing and health improvement. She had a prior pneumococcal vaccination performed. She also had a previous influenza vaccination updated for this flu season. It is noted she did have a fall within this past year with an injury. She was advised to use her assistive device which she presents with today including a walker. It is noted she does have a living will.
--- NOTE | 2020-06-05 13:05 | WC ---
Received a call from [facility] home health nurse Kat. Stated patient's boyfriend picked up her Santyl prescription but was drunk and now can't find it. Home health nurse to use C.Hydrogel and adaptic that patient has in home from last week orders or a wet to dry until misplaced Santyl is found. Kat stated they are scheduled to go see this patient tomorrow and Monday. Spoke with patient renal case manager Shirley Garay RN to update.
== END 2020-06-03 23:59 ==
LOC: WC 13:30
PROVIDERS: PCP Family Medicine; Visit Provider Podiatrist
DX: E11.621 Type 2 diabetes mellitus with foot ulcer (principal); E11.51 Type 2 diabetes mellitus with diabetic peripheral angiopathy without gangrene; E11.42 Type 2 diabetes mellitus with diabetic polyneuropathy; L97.522 Non-pressure chronic ulcer of other part of left foot with fat layer exposed; F17.200 Nicotine dependence, unspecified, uncomplicated; R60.0 Localized edema; L97.429 Non-pressure chronic ulcer of left heel and midfoot with unspecified severity; E66.9 Obesity, unspecified; T25.2 Burn of second degree of ankle and foot; X19.XXXS Contact with other heat and hot substances, sequela
CPT/HCPCS: 11042; 99213; G0463

== ENCOUNTER 2020-06-24 15:15 | Outpatient (RCR) | payer MEDICARE, MEDICAID, SELFPAY ==
[2020-06-04 00:53] VITALS: BP 124/89; PULSE 100; RESP 18; TEMP 36.1
[2020-06-10 15:46] VITALS: BP 109/74; PULSE 98; RESP 18; TEMP 36.1; BMI 94.5
--- NOTE | 2020-06-10 17:00 | PN.PCM_ITS ---
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 contributing to her pain and may contribute to future delayed healing. It is noted she has reduced her smoking habits by half however I encouraged her to avoid all smoking habits to give her a chance at healing. Pain management is addressed with topical anesthetic, and prescription medication for tramadol. To optimize healing by management of glycemic control and nutritional supplementation to improve protein intake. Labs were reviewed as noted in [facility]. To follow-up in clinic in 1 week or call sooner if questions or concerns. I answered all of her questions. . PEARL 2020. Medications and allergies were reviewed and reconciled today. Her blood pressure is 124/89 which is elevated over 120/80. Her BMI is 94.5 which is significantly elevated. She was advised on nutrition and activity to optimize health, wound healing, and improved blood pressure and weight management. She is a current tobacco user and cessation was reviewed. This is also imperative for wound healing and health improvement. She had a prior pneumococcal vaccination performed. She also had a previous influenza vaccination updated for this flu season. It is noted she did have a fall within this past year with an injury. She was advised to use her assistive device which she presents with today including a walker. It is noted she does have a living will.
[2020-06-17 15:25] VITALS: BP 155/94; PULSE 85; RESP 16; TEMP 36.6; BMI 94.5
--- NOTE | 2020-06-17 17:22 | PN.PCM_ITS ---
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 this past year with an injury. She was advised to use her assistive device which she presents with today including a walker. It is noted she does have a living will.
[2020-06-24 15:33] VITALS: BP 87/54; PULSE 78; RESP 16; TEMP 36.8; BMI 94.5
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
== END 2020-07-03 23:59 ==
LOC: WC 15:15
PROVIDERS: PCP Family Medicine; Visit Provider Podiatrist
DX: E11.621 Type 2 diabetes mellitus with foot ulcer (principal); L97.422 Non-pressure chronic ulcer of left heel and midfoot with fat layer exposed; L97.522 Non-pressure chronic ulcer of other part of left foot with fat layer exposed; T25.2 Burn of second degree of ankle and foot; X08.8XXS Exposure to other specified smoke, fire and flames, sequela; E11.51 Type 2 diabetes mellitus with diabetic peripheral angiopathy without gangrene; E11.42 Type 2 diabetes mellitus with diabetic polyneuropathy; B35.1 Tinea unguium; R60.0 Localized edema; I10 Essential (primary) hypertension; F25.9 Schizoaffective disorder, unspecified; F31.9 Bipolar disorder, unspecified; E66.9 Obesity, unspecified; Z68.45 Body mass index [BMI] 70 or greater, adult; F17.210 Nicotine dependence, cigarettes, uncomplicated; Z79.01 Long term (current) use of anticoagulants; Z79.02 Long term (current) use of antithrombotics/antiplatelets; Z79.82 Long term (current) use of aspirin; Z79.4 Long term (current) use of insulin; Z79.899 Other long term (current) drug therapy
CPT/HCPCS: 11042; 97597

== ENCOUNTER 2020-07-22 14:45 | Outpatient (RCR) | payer MEDICARE, MEDICAID, SELFPAY ==
[2020-07-04 00:49] VITALS: BP 87/54; PULSE 78; RESP 16; TEMP 36.8; BMI 40.4
[2020-07-08 13:50] VITALS: BP 130/66; PULSE 112; RESP 20; TEMP 36.2; BMI 40.4
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
[2020-07-22 14:57] VITALS: BP 151/73; PULSE 80; TEMP 35.8; BMI 40.4
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
== END 2020-07-22 15:44 | disposition home or self-care (01) ==
LOC: WC 14:45
PROVIDERS: PCP Family Medicine; Visit Provider Podiatrist
DX: E11.621 Type 2 diabetes mellitus with foot ulcer (principal); E11.40 Type 2 diabetes mellitus with diabetic neuropathy, unspecified; F17.210 Nicotine dependence, cigarettes, uncomplicated; E66.9 Obesity, unspecified; I10 Essential (primary) hypertension; Z68.41 Body mass index [BMI] 40.0-44.9, adult; L97.522 Non-pressure chronic ulcer of other part of left foot with fat layer exposed
CPT/HCPCS: 11042; 99213; G0463

== ENCOUNTER 2020-07-30 18:33 | Inpatient (IN) | payer MEDICARE, MEDICAID, SELFPAY ==
[2020-07-30] VITALS (17 sets, daily range): BP systolic 71–136; BP diastolic 51–74; PULSE 61–73; RESP 14–20; TEMP 36.6–37.1; O2SAT 94–99; BMI 41.5; BMI 41.8
--- NOTE | 2020-07-30 18:57 | EKG12_ITS ---
Test Reason : DIZZINESS Blood Pressure : / mmHG Vent. Rate : 070 BPM Atrial Rate : 070 BPM P-R Int : 148 ms QRS Dur : 082 ms QT Int : 408 ms P-R-T Axes : 014 006 023 degrees QTc Int : 440 ms Poor data quality, interpretation may be adversely affected Normal sinus rhythm Normal ECG Confirmed by MARYAM TAFOYA, JAZZMINE ([id number]), school photograph editor MARTHA SCOTT ([id number]) on 07/31/2020 10:22:14 AM Referred By: BENTON Confirmed By:JAZZMINE FRANCISCO MD
[2020-07-30] MEDS: 0.9% Normal Saline 1,000 ML 1000 ML IV (19:00)
--- NOTE | 2020-07-30 19:00 | EDS_ITS ---
HPI History of Present Illness Chief Complaint: Fall Informant: patient Onset/Context/Timing Onset: Today Current Severity: Moderate Maximum Severity: Severe Narrative Narrative: Patient presents with a fall and right ankle injury. Patient states she got up to go the kitchen and felt lightheaded and dizzy. After she got to the kitchen she had a near syncopal episode and fell to the floor. She injured her right ankle and hit her left knee. Patient states her normal systolic blood pressure is in the 90s. She presents hypotensive here. She does admit to feeli ng lightheaded and dizzy for the past several days whenever she stands. [facility] Medical History (Updated 07/30/20 @ 21:[address] Breann Nguyễn MD) Benign essential hypertension Bipolar 2 disorder CAD (coronary artery disease) Chronic narcotic use Chronic neutrophilia Depression Gastroesophageal reflux disease Hip osteoarthritis History of pulmonary embolism HTN (hypertension) Hyperlipidemia Iron deficiency anemia due to dietary causes Morbid obesity Morbid obesity with BMI of 45.0-49.9, adult Neutrophilic leukocytosis RACHEL (obstructive sleep apnea) Osteoarthritis Parathyroid abnormality Peptic ulcer Pulmonary hypertension Schizoaffective disorder Schizophrenia Spinal stenosis of lumbar region at multiple levels Thyroid nodule Tobacco abuse Type 2 diabetes mellitus Vitamin D deficiency Home Medications atorvastatin 80 mg PO QHS 08/22/15 [History Last Taken 12/17/19 22:26] nitroglycerin 0.4 mg SL PRN PRN 11/08/16 [History Last Taken 11/01/17 0.4 MG] amlodipine 10 mg tablet 10 mg PO DAILY tab 05/02/17 [History Last Taken 12/18/19 10:26] potassium chloride 10 mEq tablet,extended release(part/cryst) 10 meq PO DAILY #60 tab 06/16/17 [Rx Last Taken 12/16/19] pregabalin 75 mg PO TID 03/08/18 [History Last Taken 12/18/19 14:40] risperidone 4 mg PO QHS 03/08/18 [History Last Taken 12/17/19 22:27] tizanidine 6 mg PO TID PRN PRN 03/08/18 [History Last Taken 12/18/19 14:37] trazodone 200 mg PO QHS 03/08/18 [History Last Taken 12/17/19 22:26] furosemide 20 mg PO DAILY 11/20/18 [History Last Taken 12/16/19] lisinopril 20 mg PO QHS 11/20/18 [History Last Taken 12/17/19 22:26] mirabegron 25 mg PO DAILY 11/20/18 [History Last Taken 12/18/19 08:47] apixaban 5 mg PO BID 05/02/19 [History Last Taken 12/18/19 10:22] buspirone 30 mg tablet 30 mg PO BID tab 06/27/19 [History Last Taken 12/18/19 08:46] sucralfate 1 gram tablet 1 g PO QACHS 06/27/19 [History Last Taken 12/18/19 16:13] promethazine 12.5 - 25 mg PO BID PRN PRN 08/22/19 [History Last Taken 12/15/19] tiotropium bromide 2.5 mcg/actuation mist for inhalation 2 puff INHALATION DAILY #4 g 09/30/19 [Rx Last Taken 12/18/19 13:02] montelukast 10 mg tablet 10 mg PO QHS #30 tab 10/30/19 [Rx Last Taken 12/17/19 22:26] albuterol sulfate 2.5 mg INHALATION Q4H PRN #180 ml 12/11/19 [Rx Last Taken Unkn own] acidophilus-pectin, citrus 2 tab PO BID 12/16/19 [History Last Taken 12/18/19 10:25] insulin glargine 40 units SC BID 12/18/19 [History Last Taken 12/18/19 10:25] hydrocortisone 1 applic TOPICAL TID PRN PRN #1 tube 01/02/20 [Rx Last Taken Unknown] menthol-zinc oxide 1 applic TOPICAL BID tube 01/02/20 [Rx Last Taken Unknown] albuterol sulfate 2 puff IH Q6H PRN PRN inhaler 01/27/20 [Rx Last Taken Unknown] alprazolam 0.5 mg PO TID PRN PRN #21 tab 01/27/20 [Rx Last Taken Unknown] baclofen 10 mg PO TID tab 01/27/20 [Rx Last Taken Unknown] fluticasone propion-salmeterol 2 puff IH Q12 inhaler 01/27/20 [Rx Last Taken Unknown] insulin lispro 5 unit SC TIDAC #1 insuln.pen 01/27/20 [Rx Last Taken Unknown] metoprolol tartrate 50 mg PO DAILY tab 01/27/20 [Rx Last Taken Unknown] nystatin 1 applic TOPICAL BID bottle 01/27/20 [Rx Last Taken Unknown] polyethylene glycol 3350 17 gm PO BID #60 packet 01/27/20 [Rx Last Taken Unknown] sodium hypochlorite 1 applic TOPICAL DAILY@1000 #1 bottle 01/27/20 [Rx Last Taken Unknown] dicyclomine 20 mg PO TIDAC #10 cap 03/16/20 [Rx Last Taken Unknown] metoclopramide HCl 10 mg PO 4X/DAY PRN #20 tab 03/16/20 [Rx Last Taken Unknown] Allergy/AdvReac Type Severity Reaction Status Date / Time amoxicillin Allergy Itching Verified 07/30/20 18:33 erythromycin base Allergy Unknown Verified 07/30/20 18:33 methadone Allergy Itching Verified 07/30/20 18:33 metolazone Allergy Unknown Verified 07/30/20 18:33 Penicillins Allergy Hives Verified 07/30/20 18:33 Sulfa (Sulfonamide Allergy Hives Verified 06/22/20 14:14 Antibiotics) clarithromycin [From Biaxin] AdvReac Nausea Verified 07/30/20 18:33 ibuprofen AdvReac 3 BLEEDING Verified 07/30/20 18:33 ULCERS morphine AdvReac HEADACHE Verified 07/30/20 18:33 oxycodone [From Percocet] AdvReac Itching Verified 07/30/20 18:33 Family History Mother Heart disease Cancer ovarian Father Hypertension Arthritis Hyperlipemia Grandmother Breast cancer Heart disease Grandfather Heart disease Surgical History History of appendectomy history of carpal tunnel release left wrist History of carpal tunnel surgery of left wrist History of cholecystectomy History of gastric bypass History of PTCA History of right ankle surgery history of right hip surgery History of tonsillectomy Social History Smoking Status: Current every day smoker tobacco type: cigarettes Tobacco: How many years used: 39 alcohol intake: never substance use type: does not use caffeine: No what type of physical activity do you participate in: none ROS ROS ED Constitutional Constitutional ED: Denies chills or fever(s) Eyes Eyes: Denies change in vision ENT ENT ED: Denies sore throat Cardiovascular Cardiovascular: Denies chest pain Respiratory/Chest Respiratory/Chest: Denies cough or dyspnea Gastrointestinal Gastrointestinal: Denies abdominal pain, diarrhea, nausea or vomiting Genitourinary Genitourinary ED: Denies dysuria Musculoskeletal Musculoskeletal: Reports arthralgias; Denies back pain Integumentary Denies rash Neurologic Neurologic: Denies headache(s) or weakness Psychiatric Psychiatric: Denies anxiety or depression Endocrine Endocrinology: Denies polydipsia or polyuria Allergic/Immunologic Allergic/Immunologic ED: Denies urticaria EXAM Physical Exam Const Vital Signs: 07/30/20 18:35 07/30/20 18:40 07/30/20 19:01 Temperature 98.3 F Temperature Source Oral Pulse Rate 73 72 Pulse Rate [1 (Initial Baseline)] Pulse Rate [2] Respiratory Rate 20 H 17 Respiratory Rate [1 (Initial Baseline)] Respiratory Rate [2] Respiratory Effort Normal Non-Labored Respiratory Depth Normal Respiratory Pattern Normal Blood Pressure 71/51 L 86/51 L Blood Pressure [1 (Initial Baseline)] Blood Pressure [2] Blood Pressure Mean 57 62 Pulse Ox 97 96 97 Oxygen Delivery Method Room Air Room Air Room Air Oxygen Delivery Method [1 (Initial Baseline)] Oxygen Delivery Method [2] Oxygen Flow Rate (L/min) Fraction of Inspired Oxygen (FIO2) [1 (Initial Baseline)] Fraction of Inspired Oxygen (FIO2) [2] 07/30/20 19:38 07/30/20 20:35 07/30/20 20:36 Temperature Temperature Source Pulse Rate 61 65 Pulse Rate [1 (Initial Baseline)] Pulse Rate [2] Respiratory Rate 15 18 Respiratory Rate [1 (Initial Baseline)] Respiratory Rate [2] Respiratory Effort Respiratory Depth Respiratory Pattern Blood Pressure 102/57 L 114/74 114/74 Blood Pressure [1 (Initial Baseline)] Blood Pressure [2] Blood Pressure Mean 72 87 Pulse Ox 97 98 Oxygen Delivery Method Oxygen Delivery Method [1 (Initial Baseline)] Oxygen Delivery Method [2] Oxygen Flow Rate (L/min) Fraction of Inspired Oxygen (FIO2) [1 (Initial Baseline)] Fraction of Inspired Oxygen (FIO2) [2] 07/30/20 20:37 07/30/20 20:44 07/30/20 20:49 Temperature Temperature Source Pulse Rate 62 Pulse Rate [1 (Initial Baseline)] 66 Pulse Rate [2] 65 Respiratory Rate 16 17 Respiratory Rate [1 (Initial Baseline)] 15 Respiratory Rate [2] 17 Respiratory Effort Respiratory Depth Respiratory Pattern Blood Pressure 117/59 L 108/62 Blood Pressure [1 (Initial Baseline)] 114/74 Blood Pressure [2] 117/59 L Blood Pressure Mean Pulse Ox 99 98 Oxygen Delivery Method Nasal Cannula Room Air Oxygen Delivery Method [1 (Initial Baseline)] Nasal Cannula Oxygen Delivery Method [2] Nasal Cannula Oxygen Flow Rate (L/min) 4 Fraction of Inspired Oxygen (FIO2) [1 (Initial Baseline)] 6 Fraction of Inspired Oxygen (FIO2) [2] 6 07/30/20 20:54 Temperature Temperature Source Pulse Rate 70 Pulse Rate [1 (Initial Baseline)] Pulse Rate [2] Respiratory Rate 16 Respiratory Rate [1 (Initial Baseline)] Respiratory Rate [2] Respiratory Effort Respiratory Depth Respiratory Pattern Blood Pressure 112/53 L Blood Pressure [1 (Initial Baseline)] Blood Pressure [2] Blood Pressure Mean Pulse Ox 96 Oxygen Delivery Method Room Air Oxygen Delivery Method [1 (Initial Baseline)] Oxygen Delivery Method [2] Oxygen Flow Rate (L/min) Fraction of Inspired Oxygen (FIO2) [1 (Initial Baseline)] Fraction of Inspired Oxygen (FIO2) [2] Positive well nourished and well developed General Appearance ED: well developed Eyes PERRL and EOMs intact bilaterally Chest Wall inspection of chest normal and palpation of chest normal Resp normal respiratory effort and clear to auscultation bilaterally Cardio regular rate and regular rhythm GI normal to inspection, nondistended, normoactive bowel sounds Extremity Extremity Narrative: Right ankle deformity noted. Palpable distal pulses. Can wiggle toes and has good sensation. Abrasion over left knee with no bony tenderness. Neuro oriented x3 Sensorium / Orientation: alert Psych mental status grossly normal MDM MDM MDM Narrative Medical decision making narrative: Patient was given IV fluids to support blood pressure. Blood pressure came up to just over 100 systolic and she was given a dose of Dilaudid for pain control. Labs and ankle x-ray are obtained. Per my interpretation right ankle x-ray reveals a mildly displaced trimalleolar fracture. Lab Data Attestation: I reviewed the patient's lab results. Labs: Laboratory Results - last 24 hr 07/30/20 07/30/20 19:00 19:00 WBC 16.4 H RBC 5.08 Hgb 16.0 H Hct 48.0 H MCV 94.5 MCH 31.5 MCHC 33.3 RDW Std Deviation 47.5 H RDW Coeff of Kaycee 13.6 Plt Count 310 MPV 9.9 Immature Gran % (Auto) 0.500 Neut % (Auto) 80.8 H Lymph % (Auto) 10.4 L Haines % (Auto) 6.2 Eos % (Auto) 1.3 Baso % (Auto) 0.8 Absolute Neuts (auto) 13.2 H Absolute Lymphs (auto) 1.70 Nucleated RBC % 0 Sodium 132 L Potassium 4.1 Chloride 100 Carbon Dioxide 24.0 Anion Gap 8 BUN 13 Creatinine 1.59 H Estim Creat Clear Calc 34.93 Est GFR (MDRD) Af Amer 43 L Est GFR (MDRD) Non-Af 36 L BUN/Creatinine Ratio 8.2 L Glucose 208 H Calcium 10.2 H Radiography Diagnostic Testing: Radiology Impression Ankle X-Ray 07/30/20 19:45 IMPRESSION: Trimalleolar fracture with mild lateral subluxation of the talus in relation to the tibia. There is associated soft tissue swelling. at 2035 Reported and signed by: Todd Lux MD Electronically Signed: Todd Lux MD at 20:33 EDT Tel , Service support , EKG Initial EKG: Attestation: I personally reviewed and interpreted this EKG as follows: Interpretation: Sinus Rhythm (Sinus at 70 with no acute ischemia.) Treatment and Re-Evaluation Comments:: Patient's blood pressure on arrival was 71/51. She states her normal systolic blood pressure is around 90. She was given IV fluids and blood pressure did improve to the low 100 range. She was medicated with Dilaudid for pain control. Right ankle x-rays confirmed trimalleolar ankle fracture. Patient was consented for procedural sedation and ankle was reduced and splinted. Post reduction x-rays show significant provement in alignment. I have spoken with the delivery nurse and will speak with hospitalist regarding admission. Procedures Lower Extremity Splints Lower Extremity Splint: Orthoglass and - (Posterior blood sugar tong) Splint Fabrication: Fabricated Location: Right Other Procedures Procedure(s): Procedural sedation with propofol. Patient was given a total of 50 mg of IV propofol. She was observed on cat cracker operator and oxygen throughout the sedation. Total sedation time was 7 minutes. Right ankle was reduced with traction and posterior plus sugar tong splint placed. Post reduction x-rays a re obtained. Following splint application patient can wiggle toes and has good cap refill. Discharge Plan Triage Chief Complaint: Fall ED Provider: Breann Nguyễn Dx/Rx/DC Orders Clinical Impression: Acute hypotension, Acute kidney insufficiency, Closed trimalleolar fracture of right ankle Prescriptions: No Action sucralfate 1 gram tablet 1 g PO QACHS RF: 0 atorvastatin 80 MG tablet 80 mg PO QHS RF: 0 amlodipine 10 MG tablet 10 mg PO DAILY RF: 0 nitroglycerin 0.4 MG tablet, sublingual 0.4 mg SL PRN PRN (Reason: Cardiac/Chest Pain) RF: 0 risperidone 4 mg tablet 4 mg PO QHS RF: 0 trazodone 100 MG tablet 200 mg PO QHS RF: 0 pregabalin 75 MG capsule 75 mg PO TID RF: 0 tizanidine 4 MG tablet 6 mg PO TID PRN PRN (Reason: Spasms) RF: 0 buspirone 30 mg tablet 30 mg PO BID RF: 0 furosemide 20 MG tablet 20 mg PO DAILY RF: 0 mirabegron 25 MG tablet extended release 24 hr 25 mg PO DAILY RF: 0 lisinopril 20 MG tablet 20 mg PO QHS RF: 0 apixaban 5 MG tablet 5 mg PO BID RF: 0 promethazine 25 MG tablet 12.5 - 25 mg PO BID PRN PRN (Reason: Nausea) RF: 0 acidophilus-pectin, citrus 1 TABLET tablet 2 tab PO BID RF: 0 insulin glargine 100 UNITS/ML insulin pen 40 units SC BID RF: 0 hydrocortisone 1 APPLIC cream 1 applic TOPICAL TID PRN PRN (Reason: Itching) Qty: 1 RF: 0 menthol-zinc oxide 1 APPLIC ointment 1 applic TOPICAL BID RF: 0 polyethylene glycol 3350 17 GM packet 17 gm PO BID Qty: 60 RF: 0 alprazolam 0.5 MG tablet 0.5 mg PO TID PRN PRN (Reason: Anxiety) Qty: 21 RF: 0 baclofen 10 MG tablet 10 mg PO TID RF: 0 metoprolol tartrate 50 MG tablet 50 mg PO DAILY RF: 0 nystatin 1 APPLIC bottle 1 applic TOPICAL BID RF: 0 albuterol sulfate 1 PUFF inhaler 2 puff IH Q6H PRN PRN (Reason: SOB &/or Wheezing ) RF: 0 sodium hypochlorite 1 APPLIC bottle 1 applic TOPICAL DAILY@1000 Qty: 1 RF: 0 insulin lispro 100 UNIT/ML insulin pen 5 unit SC TIDAC Qty: 1 RF: 0 fluticasone propion-salmeterol 1 PUFF inhaler 2 puff IH Q12 RF: 0 dicyclomine 10 MG capsule 20 mg PO TIDAC Qty: 10 RF: 0 metoclopramide HCl 10 MG tablet 10 mg PO 4X/DAY PRN (Reason: Headache) Qty: 20 RF: 0 potassium chloride 10 mEq tablet,ER particles/crystals 10 meq PO DAILY Qty: 60 RF: 3 tiotropium bromide 2.5 mcg/actuation mist 2 puff INHALATION DAILY Qty: 4 RF: 3 montelukast 10 mg tablet 10 mg PO QHS Qty: 30 RF: 5 albuterol sulfate 2.5 mg /3 mL (0.083 %) solution for nebulization 2.5 mg INHALATION Q4H PRN (Reason: Sob &/Or Wheezing) Qty: 180 RF: 3 Primary Care Provider: Janel Taylor Referrals: Janel Taylor MD [Primary Care Provider] - Disposition Disposition: Acute Care Hospital [facility]
[2020-07-30 19:31] LABS: Absolute Neutrophil Count 13.2 X10^3/uL (2.0-7.7); Basophil# 0.13 X10^3/uL; Basophil% 0.8 % (0-1); Eosinophil# 0.21 X10^3/uL; Eosinophils% 1.3 % (0-5); Lymphocyte % 10.4 % (19-41); Mean Corp Hgb Conc 33.3 g/dL (32-36); Mean Corpuscular Hgb 31.5 pg (27.0-32.0); Mean Corpuscular Volume 94.5 fL (81-99); Mean Platelet Vol. 9.9 fl (6.2-12.0); Monocyte# 1.02 X10^3/uL; Monocyte% 6.2 % (0-10); NRBC Flagged by Analyzer 0 % (0-5); Neutrophil # 13.22 X10^3/uL (2.7-7.7); Neutrophil % 80.8 % (47-70); Platelet Count 310 K/mm3 (150-450); RBC Distribution Width CV 13.6 % (11.6-14.6); RBC Distribution Width SD 47.5 fl (35.1-43.9); Red Blood Count 5.08 M/mm3 (4.2-5.4); White Blood Count 16.4 K/mm3 (4.4-11.0)
[2020-07-30 19:40] LABS: Anion Gap 8 (5-15); BUN 13 mg/dL (7-18); BUN/Creat Ratio 8.2 RATIO (10-20); Calcium,Total 10.2 mg/dL (8.5-10.1); Chloride 100 mmol/L (98-107); Creatinine, Serum 1.59 mg/dL (0.55-1.02); EST Glomerular Filtration Rate 36 mL/min (>60); Est Glom Filt Rate - Afr Amer 43 mL/min (>60); Estimated Creatinine Clearance 34.93 ml/min; Glucose 208 mg/dL (74-106); Potassium 4.1 mmol/L (3.5-5.1); Sodium Level 132 mmol/L (136-145)
[2020-07-30] MEDS: HYDROmorphone 0.5 MG/0.5 ML SYRINGE IV ×2 (19:44→21:35)
--- NOTE | 2020-07-30 19:45 | RAD_ITS ---
EXAM: XR RIGHT ANKLE COMPLETE, 3 OR MORE VIEWS : 1965 CLINICAL INDICATION: injury TECHNIQUE: Frontal, lateral and oblique views of the right ankle. This report was created using [employer] report generation technology. COMPARISON: None. FINDINGS: BONES/JOINTS: There appears to be a trimalleolar fracture. There is widening of the medial tibial talar joint. No sclerotic or destructive changes observed. SOFT TISSUES: There is associated soft tissue swelling. No radiopaque foreign body. RAD/Ankle min 3 Views IMPRESSION: Trimalleolar fracture with mild lateral subluxation of the talus in relation to the tibia. There is associated soft tissue swelling. at 2035 Reported and signed by: Todd Lux MD Electronically Signed: Todd Lux MD at 20:33 EDT Tel , Service support ,
[2020-07-30] MEDS: Propofol 200 MG/20 ML Vial IV BOLUS (19:58)
--- NOTE | 2020-07-30 21:00 | RAD_ITS ---
EXAM: XR RIGHT ANKLE, 2 VIEWS : 1965 CLINICAL INDICATION: post reduction TECHNIQUE: Frontal and lateral views of the right ankle. This report was created using [employer] report generation technology. COMPARISON: 07/30/2020 at 1946 hrs. FINDINGS: BONES/JOINTS: Fiberglass cast has been placed. There has been a closed reduction of the trimalleolar fracture. Fracture fragments are in anatomic alignment. The tibiotalar joint space is maintained. No sclerotic or destructive changes observed. SOFT TISSUES: Unremarkable. No soft tissue swelling or gas. No radiopaque foreign body. RAD/Ankle 2 Views IMPRESSION: Casting and closed reduction of an ankle fracture. Alignment is anatomic at 2136 Reported and signed by: Todd Lux MD Electronically Signed: Todd Lux MD at 21:35 EDT Tel , Service support ,
[2020-07-30] MEDS: 0.9% Normal Saline 1,000 ML 150 ML IV (21:28)
--- NOTE | 2020-07-30 21:55 | PCM.HP.STD ---
[facility] - General General Date of Admission: 07/30/20 Date of Service: 07/30/20 Chief Complaint: Fall. [facility] Narrative TALAT HAN, is a 54 F with past medical history as mentioned below presented to the emergency room because of fall. Patient stated that she stood up to go to her kitchen, felt dizzy and lightheaded and she was about to pass out, fell to the floor and injured her right ankle. She started having right ankle pain, sharp pain, 10 out of 10 in severity, severe pain, aggravated by any type of movement. She mentioned that she was about to pass out but she did not. She denied chest pain or shortness of breath. She stated that recently, her blood pressure has been intermittently running low. Upon arrival to ED, blood pressure was 71/51, was afebrile, not tachycardic and pulse ox was 97%. After IV fluids, her blood pressure improved and last blood pressure is 112/60. Her routine blood work was remarkable for leukocytosis, creatinine is 1.59. EKG revealed normal sinus rhythm without evidence of acute ischemic changes. X-ray of the right ankle revealed trimalleolar fracture with mild lateral subluxation of the talus. Patient is being admitted for hypotension, acute kidney injury and right ankle fracture. [facility] Medical History (Updated 07/30/20 @ 22:[address] Hernandez Galvez MD) Benign essential hypertension Bipolar 2 disorder Chronic narcotic use Gastroesophageal reflux disease Hip osteoarthritis History of pulmonary embolism Morbid obesity with BMI of 45.0-49.9, adult RACHEL (obstructive sleep apnea) Peptic ulcer Schizoaffective disorder Spinal stenosis of lumbar region at multiple levels Thyroid nodule Tobacco abuse Vitamin D deficiency Home Medications atorvastatin 80 mg PO QHS 08/22/15 [History Last Taken 12/17/19 22:26] nitroglycerin 0.4 mg SL PRN PRN 11/08/16 [History Last Taken 11/01/17 0.4 MG] amlodipine 10 mg tablet 10 mg PO DAILY tab 05/02/17 [History Last Taken 12/18/19 10:26] potassium chloride 10 mEq tablet,extended release(part/cryst) 10 meq PO DAILY #60 tab 06/16/17 [Rx Last Taken 12/16/19] pregabalin 75 mg PO TID 03/08/18 [History Last Taken 12/18/19 14:40] risperidone 4 mg PO QHS 03/08/18 [History Last Taken 12/17/19 22:27] tizanidine 6 mg PO TID PRN PRN 03/08/18 [History Last Taken 12/18/19 14:37] trazodone 200 mg PO QHS 03/08/18 [History Last Taken 12/17/19 22:26] furosemide 20 mg PO DAILY 11/20/18 [History Last Taken 12/16/19] lisinopril 20 mg PO QHS 11/20/18 [History Last Taken 12/17/19 22:26] mirabegron 25 mg PO DAILY 11/20/18 [History Last Taken 12/18/19 08:47] apixaban 5 mg PO BID 05/02/19 [History Last Taken 12/18/19 10:22] buspirone 30 mg tablet 30 mg PO BID tab 06/27/19 [History Last Taken 12/18/19 08:46] sucralfate 1 gram tablet 1 g PO QACHS 06/27/19 [History Last Taken 12/18/19 16:13] promethazine 12.5 - 25 mg PO BID PRN PRN 08/22/19 [History Last Taken 12/15/19] tiotropium bromide 2.5 mcg/actuation mist for inhalation 2 puff INHALATION DAILY #4 g 09/30/19 [Rx Last Taken 12/18/19 13:02] montelukast 10 mg tablet 10 mg PO QHS #30 tab 10/30/19 [Rx Last Taken 12/17/19 22:26] albuterol sulfate 2.5 mg INHALATION Q4H PRN #180 ml 12/11/19 [Rx Last Taken Unknown] acidophilus-pectin, citrus 2 tab PO BID 12/16/19 [History Last Taken 12/18/19 10:25] insulin glargine 40 units SC BID 12/18/19 [History Last Taken 12/18/19 10:25] hydrocortisone 1 applic TOPICAL TID PRN PRN #1 tube 01/02/20 [Rx Last Taken Unknown] menthol-zinc oxide 1 applic TOPICAL BID tube 01/02/20 [Rx Last Taken Unknown] albuterol sulfate 2 puff IH Q6H PRN PRN inhaler 01/27/20 [Rx Last Taken Unknown] alprazolam 0.5 mg PO TID PRN PRN #21 tab 01/27/20 [Rx Last Taken Unknown] baclofen 10 mg PO TID tab 01/27/20 [Rx Last Taken Unknown] fluticasone propion-salmeterol 2 puff IH Q12 inhaler 01/27/20 [Rx Last Taken Unknown] insulin lispro 5 unit SC TIDAC #1 insuln.pen 01/27/20 [Rx Last Taken Unknown] metoprolol tartrate 50 mg PO DAILY tab 01/27/20 [Rx Last Taken Unknown] nystatin 1 applic TOPICAL BID bottle 01/27/20 [Rx Last Taken Unknown] polyethylene glycol 3350 17 gm PO BID #60 packet 01/27/20 [Rx Last Taken Unknown] sodium hypochlorite 1 applic TOPICAL DAILY@1000 #1 bottle 01/27/20 [Rx Last Taken Unknown] dicyclomine 20 mg PO TIDAC #10 cap 03/16/20 [Rx Last Taken Unknown] metoclopramide HCl 10 mg PO 4X/DAY PRN #20 tab 03/16/20 [Rx Last Taken Unknown] Allergy/AdvReac Type Severity Reaction Status Date / Time amoxicillin Allergy Itching Verified 07/30/20 18:33 erythromycin base Allergy Unknown Verified 07/30/20 18:33 methadone Allergy Itching Verified 07/30/20 18:33 metolazone Allergy Unknown Verified 07/30/20 18:33 Penicillins Allergy Hives Verified 07/30/20 18:33 Sulfa (Sulfonamide Allergy Hives Verified 06/22/20 14:14 Antibiotics) clarithromycin [From Biaxin] AdvReac Nausea Verified 07/30/20 18:33 ibuprofen AdvReac 3 BLEEDING Verified 07/30/20 18:33 ULCERS morphine AdvReac HEADACHE Verified 07/30/20 18:33 oxycodone [From Percocet] AdvReac Itching Verified 07/30/20 18:33 Family History Mother Heart disease Cancer ovarian Father Hypertension Arthritis Hyperlipemia Grandmother Breast cancer Heart disease Grandfather Heart disease Surgical History (Updated 07/30/20 @ 22:[address] Hernandez Galvez MD) History of appendectomy history of carpal tunnel release left wrist History of carpal tunnel surgery of left wrist History of cholecystectomy History of gastric bypass History of PTCA History of right ankle surgery history of right hip surgery History of tonsillectomy Social History Smoking Status: Current every day smoker tobacco type: cigarettes Tobacco: How many years used: 39 alcohol intake: never substance use type: does not use caffeine: No what type of physical activity do you participate in: none ROS Constitutional Constitutional: Denies anorexia, chills, fatigue, fever(s) or malaise Eyes Eyes: Denies blurry vision, change in eye color, change in vision, double vision or eye pain ENT HEENT: Denies ear pain, epistaxis, headache(s), nasal congestion, post nasal drip or sore throat Cardiovascular Cardiovascular: Reports lightheadedness; Denies chest pain, dyspnea on exertion, edema, orthopnea, palpitations, paroxysmal nocturnal dyspnea or syncope Respiratory/Chest Respiratory/Chest: Denies cough, dyspnea, hemoptysis, productive cough, shortness of breath at rest, shortness of breath with exertion or wheezing Gastrointestinal Gastrointestinal: Denies abdominal pain, constipation, diarrhea, hematemesis, hematochezia, melena, nausea or vomiting Genitourinary Genitourinary: Denies burning urination, dysuria, hematuria, urinary hesitancy or urinary urgency Musculoskeletal Musculoskeletal: Reports joint pain; Denies arthralgias, back pain, joint swelling, myalgias or neck pain Neurologic Neurologic: Denies confusion, dizziness, focal weakness, headache(s), numbness, paresthesias, seizures, tingling or tremor(s) Psychiatric Psychiatric: Reports anxiety and depression; Denies hallucinations, homicidal ideation or suicidal ideation Endocrine Endocrinology: Denies change in body appearance, cold intolerance, heat intolerance, polydipsia or polyuria Hematologic/Lymphatic Hematologic/Lymphatic: Denies easy bleeding, easy bruising or lymphadenopathy Allergic/Immunologic Allergic/Immunologic: Denies itchy eyes, rhinitis, throat swelling, tongue swelling, hives, urticaria or wheezing Vital Signs Vital Signs Vital Signs: 07/30/20 18:35 07/30/20 18:40 07/30/20 19:01 Temperature 98.3 F Temperature Source Oral Pulse Rate 73 72 Pulse Rate [1 (Initial Baseline)] Pulse Rate [2] Respiratory Rate 20 H 17 Respiratory Rate [1 (Initial Baseline)] Respiratory Rate [2] Respiratory Effort Normal Non-Labored Respiratory Depth Normal Respiratory Pattern Normal Blood Pressure 71/51 L 86/51 L Blood Pressure [1 (Initial Baseline)] Blood Pressure [2] Blood Pressure Mean 57 62 Pulse Ox 97 96 97 Oxygen Delivery Method Room Air Room Air Room Air Oxygen Delivery Method [1 (Initial Baseline)] Oxygen Delivery Method [2] Oxygen Flow Rate (L/min) Fraction of Inspired Oxygen (FIO2) [1 (Initial Baseline)] Fraction of Inspired Oxygen (FIO2) [2] 07/30/20 19:38 07/30/20 20:35 07/30/20 20:36 Temperature Temperature Source Pulse Rate 61 65 Pulse Rate [1 (Initial Baseline)] Pulse Rate [2] Respiratory Rate 15 18 Respiratory Rate [1 (Initial Baseline)] Respiratory Rate [2] Respiratory Effort Respiratory Depth Respiratory Pattern Blood Pressure 102/57 L 114/74 114/74 Blood Pressure [1 (Initial Baseline)] Blood Pressure [2] Blood Pressure Mean 72 87 Pulse Ox 97 98 Oxygen Delivery Method Oxygen Delivery Method [1 (Initial Baseline)] Oxygen Delivery Method [2] Oxygen Flow Rate (L/min) Fraction of Inspired Oxygen (FIO2) [1 (Initial Baseline)] Fraction of Inspired Oxygen (FIO2) [2] 07/30/20 20:37 07/30/20 20:44 07/30/20 20:49 Temperature Temperature Source Pulse Rate 62 Pulse Rate [1 (Initial Baseline)] 66 Pulse Rate [2] 65 Respiratory Rate 16 17 Respiratory Rate [1 (Initial Baseline)] 15 Respiratory Rate [2] 17 Respiratory Effort Respiratory Depth Respiratory Pattern Blood Pressure 117/59 L 108/62 Blood Pressure [1 (Initial Baseline)] 114/74 Blood Pressure [2] 117/59 L Blood Pressure Mean Pulse Ox 99 98 Oxygen Delivery Method Nasal Cannula Room Air Oxygen Delivery Method [1 (Initial Baseline)] Nasal Cannula Oxygen Delivery Method [2] Nasal Cannula Oxygen Flow Rate (L/min) 4 Fraction of Inspired Oxygen (FIO2) [1 (Initial Baseline)] 6 Fraction of Inspired Oxygen (FIO2) [2] 6 07/30/20 20:54 07/30/20 21:29 Temperature 97.9 F Temperature Source Temporal Pulse Rate 70 67 Pulse Rate [1 (Initial Baseline)] Pulse Rate [2] Respiratory Rate 16 14 Respiratory Rate [1 (Initial Baseline)] Respiratory Rate [2] Respiratory Effort Respiratory Depth Respiratory Pattern Blood Pressure 112/53 L 112/60 Blood Pressure [1 (Initial Baseline)] Blood Pressure [2] Blood Pressure Mean 77 Pulse Ox 96 95 Oxygen Delivery Method Room Air Room Air Oxygen Delivery Method [1 (Initial Baseline)] Oxygen Delivery Method [2] Oxygen Flow Rate (L/min) Fraction of Inspired Oxygen (FIO2) [1 (Initial Baseline)] Fraction of Inspired Oxygen (FIO2) [2] Weight Weight: 241 lb 13.553 oz Body Mass Index (BMI) 41.5 Physical Exam Const alert, oriented x3, no apparent distress and no limitations General Appearance: cooperative, comfortable and well kempt HEENT normocephalic, head/scalp atraumatic and moist oral mucous membranes Head and Scalp: normocephalic and atraumatic Eyes PERRL, EOMs intact bilaterally, conjunctivae normal and no scleral icterus General Eye: normal appearance of both eyes Periorbital: periorbital findings normal Neck no lymphadenopathy, supple, no meningeal signs, no JVD and no carotid bruits General: trachea midline Thyroid: thyroid normal Resp normal respiratory effort, normal air movement and clear to auscultation bilaterally Auscultation: Negative for crackles, rales, rhonchi or wheezes Cardio regular rate, regular rhythm, S1 normal heart sound, S2 normal heart sound, no murmurs and no JVD Peripheral Pulses: pulses 2+ throughout GI normal to inspection, nondistended, normoactive bowel sounds, soft to palpation, non-tender and non-distended; Negative for hepatosplenomegaly Auscultation: normoactive bowel sounds Extremity normal to inspection, full ROM and no clubbing, cyanosis or edema Skin no rashes or lesions noted, no wounds and no petechiae Neuro oriented x3, CN's II-XII intact bilaterally and moves all extremities Sensorium / Orientation: alert Speech: speech normal Motor Exam: strength 5/5 throughout Psych mental status grossly normal, affect normal and denies hallucinations Lab / Micro Data Result Diagrams: 07/30/20 19:00 07/30/20 19:00 Labs: Laboratory Results - last 24 hr 07/30/20 07/30/20 19:00 19:00 WBC 16.4 H RBC 5.08 Hgb 16.0 H Hct 48.0 H MCV 94.5 MCH 31.5 MCHC 33.3 RDW Std Deviation 47.5 H RDW Coeff of Kaycee 13.6 Plt Count 310 MPV 9.9 Immature Gran % (Auto) 0.500 Neut % (Auto) 80.8 H Lymph % (Auto) 10.4 L Henry % (Auto) 6.2 Eos % (Auto) 1.3 Baso % (Auto) 0.8 Absolute Neuts (auto) 13.2 H Absolute Lymphs (auto) 1.70 Nucleated RBC % 0 Sodium 132 L Potassium 4.1 Chloride 100 Carbon Dioxide 24.0 Anion Gap 8 BUN 13 Creatinine 1.59 H Estim Creat Clear Calc 34.93 Est GFR (MDRD) Af Amer 43 L Est GFR (MDRD) Non-Af 36 L BUN/Creatinine Ratio 8.2 L Glucose 208 H Calcium 10.2 H Radiology Impression Ankle X-Ray 07/30/20 19:45 IMPRESSION: Trimalleolar fracture with mild lateral subluxation of the talus in relation to the tibia. There is associated soft tissue swelling. at 2035 Reported and signed by: Todd Lux MD Electronically Signed: Todd Lux MD at 20:33 EDT Tel , Service support , Ankle X-Ray 07/30/20 21:00 IMPRESSION: Casting and closed reduction of an ankle fracture. Alignment is anatomic at 2136 Reported and signed by: Todd Lux MD Electronically Signed: Todd Lux MD at 21:35 EDT Tel , Service support , Assessment & Plan Assessment/Plan (1) ZUHAIR (acute kidney injury): (2) Acute hypotension: (3) Closed trimalleolar fracture of right ankle: (4) Type 2 diabetes mellitus with diabetic polyneuropathy: (5) Severe persistent asthma: QUALIFIERS: Asthma complication type: uncomplicated Qualified Code(s): J45.50 - Severe persistent asthma, uncomplicated (6) Stage 2 moderate COPD by GOLD classification: (7) H/O heart artery stent: PLAN: This is a 54 years old female patient presented to the emergency room because of dizziness, fall followed by right ankle pain, found to have hypotension, acute kidney injury and acute traumatic right ankle fracture and she is being admitted for evaluation and treatment. #1 hypotension/near syncopal episode: No evidence of infection, no sepsis or septic shock. Leukocytosis likely reactive. I think this is probably due to medication side effects. Patient is on baclofen, Reglan, Lyrica, risperidone, tizanidine, trazodone in addition to lisinopril and Norvasc for hypertension. EKG reviewed, no acute changes. Patient denied any chest pain or shortness of breath. Currently, blood pressure improved. Plan: Admit to PCU, cardiac monitoring, IV fluids, Tylenol as needed, Zofran as needed, hold Norvasc and metoprolol, hold Lyrica, baclofen and tizanidine, repeat CBC and BMP tomorrow morning, check pro time and INR, PT OT evaluation and treatment. #2 acute traumatic trimalleolar fracture of the right ankle: Due to mechanical fall. Plan: IV Dilaudid as needed for pain, OxyIR as needed for pain, Zofran as needed, podiatry medicine consult. #3 acute kidney injury: Prerenal due to dehydration. Baseline kidney function is normal. Plan: IV fluids, avoid nephrotoxic drugs, input output chart, repeat BMP tomorrow morning. #4 type 2 diabetes mellitus: ADA diet, Accu-Cheks, insulin sliding scale, continue home dose of insulin #5 CAD status post stents: EKG reviewed, no acute changes. Continue statins, hold metoprolol and lisinopril. #6 COPD/severe asthma: Stable, on room air at this time. Plan for DuoNeb every 6 hours, albuterol as needed, incentive spirometer. #7 hypertension: Blood pressure is low but improved, plan as above, hold Norvasc and metoprolol. #8 anxiety and depression: Continue trazodone and Xanax. #9 history of PEs: Hold Eliquis for now. #10 DVT prophylaxis: SCDs. This note was generated with [employer] dictation software. It may contain incorrect words, spelling, and punctuation that were not noted in checking the note before signing. Visit Charges Inpatient E&M: 13705 Init Hosp L3
[2020-07-30 22:59] LABS: International Normalized Ratio 1.2; Prothrombin Time (Protime)PT. 14.6 SECONDS (11.7-14.9)
[2020-07-30] MEDS: oxyCODONE 5 MG Tablet PO (23:16)
[2020-07-30] MEDS: 0.9% Normal Saline 1,000 ML 100 ML IV (23:16)
[2020-07-30] MEDS: Acetaminophen 325 MG Tablet 650 MG PO (23:16)
[2020-07-30 23:26] LABS: Bedside Glucose 208 mg/dL (70-110)
[2020-07-30] MEDS: busPIRone 15 MG TABLET 30 MG PO (23:36)
[2020-07-30] MEDS: Atorvastatin Calcium 80 MG Tablet PO (23:36)
[2020-07-30] MEDS: Montelukast 10 MG Tablet PO (23:36)
[2020-07-30] MEDS: traZODone 100 MG Tablet 200 MG PO (23:36)
[2020-07-30] MEDS: Sucralfate 1 GM Tablet PO (23:36)
[2020-07-30] MEDS: Pregabalin 75 MG Capsule PO (23:37)
[2020-07-30] MEDS: RisperiDONE 2 MG Tablet 4 MG PO (23:37)
[2020-07-30] MEDS: Insulin Lispro 100 UNIT/ML INSULN.PEN SC (23:37)
[2020-07-31] VITALS (14 sets, daily range): BP systolic 123–133; BP diastolic 69–80; PULSE 72–107; RESP 12–20; TEMP 36.6–37; O2SAT 89–96
[2020-07-31] MEDS: HYDROmorphone 0.5 MG/0.5 ML SYRINGE IV ×2 (01:31→06:02)
[2020-07-31] MEDS: oxyCODONE 5 MG Tablet PO ×2 (03:59→08:13)
[2020-07-31] MEDS: guaiFENesin 10 ML UDC (200MG/10ML) PO ×2 (03:59→22:09)
[2020-07-31] MEDS: Pregabalin 75 MG Capsule PO ×3 (06:01→21:23)
[2020-07-31 06:05] LABS: Absolute Lymphocyte Count 1.56 X10^3/uL (0.83-4.51); Absolute Neutrophil Count 12.4 X10^3/uL (2.0-7.7); Basophil# 0.12 X10^3/uL; Basophil% 0.8 % (0-1); Eosinophil# 0.22 X10^3/uL; Eosinophils% 1.4 % (0-5); Hematocrit 43.9 % (37-47); Hemoglobin 14.2 g/dL (12.0-15.0); Lymphocyte # 1.56 X10^3/ul (0.83-4.51); Lymphocyte % 10.1 % (19-41); Mean Corp Hgb Conc 32.3 g/dL (32-36); Mean Corpuscular Hgb 30.9 pg (27.0-32.0); Mean Corpuscular Volume 95.6 fL (81-99); Mean Platelet Vol. 9.6 fl (6.2-12.0); Monocyte# 1.14 X10^3/uL; Monocyte% 7.4 % (0-10); NRBC Flagged by Analyzer 0 % (0-5); Neutrophil # 12.35 X10^3/uL (2.7-7.7); Neutrophil % 79.8 % (47-70); Platelet Count 259 K/mm3 (150-450); RBC Distribution Width CV 13.7 % (11.6-14.6); RBC Distribution Width SD 48.9 fl (35.1-43.9); Red Blood Count 4.59 M/mm3 (4.2-5.4); White Blood Count 15.5 K/mm3 (4.4-11.0)
[2020-07-31 06:30] LABS: Anion Gap 7 (5-15); BUN 12 mg/dL (7-18); BUN/Creat Ratio 14.2 RATIO (10-20); Calcium,Total 9.2 mg/dL (8.5-10.1); Chloride 106 mmol/L (98-107); Creatinine, Serum 0.84 mg/dL (0.55-1.02); EST Glomerular Filtration Rate 75 mL/min (>60); Est Glom Filt Rate - Afr Amer 90 mL/min (>60); Estimated Creatinine Clearance 63.33 ml/min; Glucose 174 mg/dL (74-106); Potassium 3.9 mmol/L (3.5-5.1); Sodium Level 136 mmol/L (136-145)
--- NOTE | 2020-07-31 07:04 | CON.PCM_ITS ---
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 Diabetes mellitus complication status: with neurologic complications Diabetes mellitus complication detail: with polyneuropathy Qualified Code(s): E11.42 - Type 2 diabetes mellitus with diabetic polyneuropathy; Z79.4 - 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 Patient broke the left ankle back in November with ORIF by Dr. Mitchell of which she has had problems healing both t he bone and the skin. She was just discharged from the wound care center for delayed incision healing this week. Patient has no risk factors for delayed healing including smoking about 2 packs a day of cigarettes, hemoglobin A1c of 10.2 on 06/01/2020, history of vitamin D deficiency, morbid obesity along with her history of not being able to heal her other ankle. Patient will need to undergo surgery in order to fix her right ankle fracture. Patient takes blood thinners at home this which is stopped late last night. I recommend waiting until tomorrow in order to undergo surgery for better bleeding control standpoint. Patient will also need medical clearance prior to undergoing surgery. Discussed with the patient all risk associated with undergoing surgery as regards to COVID-19 exposure. Discussed all risks, benefits, alternatives, and complications including but not limited to infection, delayed healing, nonhealing, and/or need for further surgery with the patient. No guarantees were given or implied. Patient agreed to proceed with the procedure. All questions answered. Right ankle x-rays were reviewed and discussed with the patient in detail. I recommend getting a CT for further surgical planning prior to surgery. Continue pain management. Patient noted to have prescribed 650 mg of acetaminophen, 0.5 mg of IV hydromorphone, 5 mg oxycodone All questions answered. Plan for surgery and most likely tomorrow. Will need to discuss with hospitalist and OR availability prior to committing to this timeframe. Thank you for the consult. Please contact if any questions or concerns. Roxane Del Angel DPM [facility] [phone] This note was generated with [employer] dictation software. It may contain incorrect words, spelling, and punctuation that were not noted in checking the note before signing. HPI Consult Data Date of Consult: 07/31/20 HPI Narrative Reason for Consultation: Right ankle fracture HPI Narrative: TALAT HAN, is a 54 F who presents after a fall in her kitchen. Patient states that she got dizzy and lightheaded and fell and ended up hurting her right ankle. Patient relates that she had similar incident back in December causing her to break her left ankle. This was fixed by Dr. Mitchell 12/23/2019. She states that she has had issues healing since then both the skin and the bone. Patient just got discharged this week from the wound care center for problems healing the incision site by Dr. Smith. Patient noted to have significant medical history including very poor control of her diabetes and obesity as well as nicotine abuse. Patient is in quite a bit of pain to her right ankle. [facility] Medical History (Updated 07/31/20 @ 07:[address] Roxane Del Angel DPM) Benign essential hypertension Bipolar 2 disorder Chronic narcotic use Delayed surgical wound healing Gastroesophageal reflux disease Hip osteoarthritis History of pulmonary embolism Morbid obesity with BMI of 45.0-49.9, adult RACHEL (obstructive sleep apnea) Peptic ulcer Schizoaffective disorder Spinal stenosis of lumbar region at multiple levels Thyroid nodule Tobacco abuse Vitamin D deficiency Home Medications atorvastatin 80 mg PO QHS 08/22/15 [History Last Taken 12/17/19 22:26] nitroglycerin 0.4 mg SL PRN PRN 11/08/16 [History Last Taken 11/01/17 0.4 MG] amlodipine 10 mg tablet 10 mg PO DAILY tab 05/02/17 [History Last Taken 12/18/19 10:26] potassium chloride 10 mEq tablet,extended release(part/cryst) 10 meq PO DAILY #60 tab 06/16/17 [Rx Last Taken 12/16/19] pregabalin 75 mg PO TID 03/08/18 [History Last Taken 12/18/19 14:40] risperidone 4 mg PO QHS 03/08/18 [History Last Taken 12/17/19 22:27] tizanidine 6 mg PO TID PRN PRN 03/08/18 [History Last Taken 12/18/19 14:37] trazodone 200 mg PO QHS 03/08/18 [History Last Taken 12/17/19 22:26] furosemide 20 mg PO DAILY 11/20/18 [History Last Taken 12/16/19] lisinopril 20 mg PO QHS 11/20/18 [History Last Taken 12/17/19 22:26] mirabegron 25 mg PO DAILY 11/20/18 [History Last Taken 12/18/19 08:47] apixaban 5 mg PO BID 05/02/19 [History Last Taken 12/18/19 10:22] buspirone 30 mg tablet 30 mg PO BID tab 06/27/19 [History Last Taken 12/18/19 08:46] sucralfate 1 gram tablet 1 g PO QACHS 06/27/19 [History Last Taken 12/18/19 16:13] promethazine 12.5 - 25 mg PO BID PRN PRN 08/22/19 [History Last Taken 12/15/19] tiotropium bromide 2.5 mcg/actuation mist for inhalation 2 puff INHALATION DAILY #4 g 09/30/19 [Rx Last Taken 12/18/19 13:02] montelukast 10 mg tablet 10 mg PO QHS #30 tab 10/30/19 [Rx Last Taken 12/17/19 22:26] albuterol sulfate 2.5 mg INHALATION Q4H PRN #180 ml 12/11/19 [Rx Last Taken Unknown] acidophilus-pectin, citrus 2 tab PO BID 12/16/19 [History Last Taken 12/18/19 10:25] insulin glargine 40 units SC BID 12/18/19 [History Last Taken 12/18/19 10:25] hydrocortisone 1 applic TOPICAL TID PRN PRN #1 tube 01/02/20 [Rx Last Taken Unknown] menthol-zinc oxide 1 applic TOPICAL BID tube 01/02/20 [Rx Last Taken Unknown] albuterol sulfate 2 puff IH Q6H PRN PRN inhaler 01/27/20 [Rx Last Taken Unkno wn] alprazolam 0.5 mg PO TID PRN PRN #21 tab 01/27/20 [Rx Last Taken Unknown] baclofen 10 mg PO TID tab 01/27/20 [Rx Last Taken Unknown] fluticasone propion-salmeterol 2 puff IH Q12 inhaler 01/27/20 [Rx Last Taken Unknown] insulin lispro 5 unit SC TIDAC #1 insuln.pen 01/27/20 [Rx Last Taken Unknown] metoprolol tartrate 50 mg PO DAILY tab 01/27/20 [Rx Last Taken Unknown] nystatin 1 applic TOPICAL BID bottle 01/27/20 [Rx Last Taken Unknown] polyethylene glycol 3350 17 gm PO BID #60 packet 01/27/20 [Rx Last Taken Unknown] sodium hypochlorite 1 applic TOPICAL DAILY@1000 #1 bottle 01/27/20 [Rx Last Taken Unknown] dicyclomine 20 mg PO TIDAC #10 cap 03/16/20 [Rx Last Taken Unknown] metoclopramide HCl 10 mg PO 4X/DAY PRN #20 tab 03/16/20 [Rx Last Taken Unknown] Allergy/AdvReac Type Severity Reaction Status Date / Time amoxicillin Allergy Itching Verified 07/30/20 18:33 erythromycin base Allergy Unknown Verified 07/30/20 18:33 methadone Allergy Itching Verified 07/30/20 18:33 metolazone Allergy Unknown Verified 07/30/20 18:33 Penicillins Allergy Hives Verified 07/30/20 18:33 Sulfa (Sulfonamide Allergy Hives Verified 06/22/20 14:14 Antibiotics) clarithromycin [From Biaxin] AdvReac Nausea Verified 07/30/20 18:33 ibuprofen AdvReac 3 BLEEDING Verified 07/30/20 18:33 ULCERS morphine AdvReac HEADACHE Verified 07/30/20 18:33 oxycodone [From Percocet] AdvReac Itching Verified 07/30/20 18:33 Family History Mother Heart disease Cancer ovarian Father Hypertension Arthritis Hyperlipemia Grandmother Breast cancer Heart disease Grandfather Heart disease Surgical History History of appendectomy history of carpal tunnel release left wrist History of carpal tunnel surgery of left wrist History of cholecystectomy History of gastric bypass History of PTCA History of right ankle surgery history of right hip surgery History of tonsillectomy Social History Smoking Status: Current every day smoker tobacco type: cigarettes Tobacco: How many years used: 39 alcohol intake: never substance use type: does not use caffeine: No what type of physical activity do you participate in: none ROS Constitutional Constitutional: Reports frequent falls; Denies chills Cardiovascular Cardiovascular: Reports leg edema; Denies chest pain or vomiting Gastrointestinal Gastrointestinal: Denies nausea or vomiting Musculoskeletal Musculoskeletal: Reports numbness and tingling Integumentary Integumentary: Denies wounds Neurologic Neurologic: Reports paresthesias Physical Exam Const alert and no apparent distress General Appearance: cooperative and comfortable HEENT Head and Scalp: atraumatic Resp Effort and Inspection: able to speak in complete sentences Extremity normal capillary refill and no calf tenderness General Extremity: edema bilateral lower extremity and other findings Other Details: Capillary refill time less than 3 seconds noted to digits ; Negative for clubbing or cyanosis Peripheral Pulses: Yes posterior tibial pulses present left diminished and dorsalis pedis pulses present left diminished Skin General Skin Exam: atrophy and dry skin; Negative for ecchymosis, erythema, eschar, pallor or dermatitis Rashes: no rashes Neuro Sensory Exam: extremities light-touch: decreased Psych Appearance: appropriate Attitude: calm Lab / Micro Data Result Diagrams: 07/31/20 05:48 07/31/20 05:48 Labs: Laboratory Results - last 24 hr 07/30/20 07/30/20 07/30/20 19:00 19:00 19:00 WBC 16.4 H RBC 5.08 Hgb 16.0 H Hct 48.0 H MCV 94.5 MCH 31.5 MCHC 33.3 RDW Std Deviation 47.5 H RDW Coeff of Kaycee 13.6 Plt Count 310 MPV 9.9 Immature Gran % (Auto) 0.500 Neut % (Auto) 80.8 H Lymph % (Auto) 10.4 L [place] % (Auto) 6.2 Eos % (Auto) 1.3 Baso % (Auto) 0.8 Absolute Neuts (auto) 13.2 H Absolute Lymphs (auto) 1.70 Nucleated RBC % 0 PT 14.6 INR 1.2 Sodium 132 L Potassium 4.1 Chloride 100 Carbon Dioxide 24.0 Anion Gap 8 BUN 13 Creatinine 1.59 H Estim Creat Clear Calc 34.93 Est GFR (MDRD) Af Amer 43 L Est GFR (MDRD) Non-Af 36 L BUN/Creatinine Ratio 8.2 L Glucose 208 H Calcium 10.2 H POC Glucose 07/30/20 07/31/20 07/31/20 23:18 05:48 05:48 WBC 15.5 H RBC 4.59 Hgb 14.2 Hct 43.9 MCV 95.6 MCH 30.9 MCHC 32.3 RDW Std Deviation 48.9 H RDW Coeff of Kaycee 13.7 Plt Count 259 MPV 9.6 Immature Gran % (Auto) 0.500 Neut % (Auto) 79.8 H Lymph % (Auto) 10.1 L [place] % (Auto) 7.4 Eos % (Auto) 1.4 Baso % (Auto) 0.8 Absolute Neuts (auto) 12.4 H Absolute Lymphs (auto) 1.56 Nucleated RBC % 0 PT INR Sodium 136 Potassium 3.9 Chloride 106 Carbon Dioxide 23.0 Anion Gap 7 BUN 12 Creatinine 0.84 Estim Creat Clear Calc 63.33 Est GFR (MDRD) Af Amer 90 Est GFR (MDRD) Non-Af 75 BUN/Creatinine Ratio 14.2 Glucose 174 H Calcium 9.2 POC Glucose 208 H Radiology Impression Ankle X-Ray 07/30/20 19:45 IMPRESSION: Trimalleolar fracture with mild lateral subluxation of the talus in relation to the tibia. There is associated soft tissue swelling. at 2034 Reported and signed by: Todd Lux MD Electronically Signed: Todd Lux MD at 20:33 EDT Tel , Service support , Ankle X-Ray 07/30/20 21:00 IMPRESSION: Casting and closed reduction of an ankle fracture. Alignment is anatomic at 2136 Reported and signed by: Todd Lux MD Electronically Signed: Todd Lux MD at 21:35 EDT Tel , Service support ,
[2020-07-31] MEDS: Ipratropium/Albuterol Sulfate 3 ML AMPUL.NEB INHALATION ×3 (07:12→19:35)
--- NOTE | 2020-07-31 07:20 | CT_ITS ---
STUDY: CT RIGHT ANKLE WITHOUT CONTRAST REASON FOR EXAM: Right ankle fracture, surgical planning. TECHNIQUE: Thin section transaxial imaging of the ankle was obtained, with sagittal and coronal reconstructed images. Individualized dose optimization techniques were used for this CT. COMPARISON: Radiographs 07/30/2020. FINDINGS: There is an oblique fracture of the distal fibula with the fracture line extending to the level of the tibiotalar articulation and posterior displacement of the distal fragment by 0.2 cm (sagittal reconstructions 14-18). There is a medial malleolar fracture with the fracture gap measuring approximately 0.35 cm (coronal reconstructions 39-44). There is a posterior malleolar fracture (sagittal reconstructions 22-27) with the lateral aspect of the fracture fragment displaced proximally approximately 0.3 cm. There is a small intra-articular fragment at the anterior lateral aspect of the tibiotalar articulation (sagittal reconstruction 16; coronal reconstructions 43, 44) measuring 0.5 cm in transverse dimension. Normal talus, calcaneus, navicular and cuboid tarsal bones. There is a small os trigonum. Normal subtalar, talonavicular and calcaneocuboid articulations. Normal navicular-cuneiform, cuneiform tarsal bones and intercuneiform articulations. Normal tarsometatarsal articulations and visualized metatarsi. There is soft tissue swelling. CT/Extremity Lower without Contra IMPRESSION: Trimalleolar fracture. Small intra-articular fragment in the tibiotalar articulation. Electronically Signed: Curtis Srivastava MD at 8:24 EDT Tel , Service support ,
[2020-07-31] MEDS: Dicyclomine 10 MG Capsule 20 MG PO ×3 (08:14→16:54)
[2020-07-31] MEDS: Sucralfate 1 GM Tablet PO ×4 (08:14→21:23)
[2020-07-31] MEDS: Insulin Lispro 100 UNIT/ML INSULN.PEN SC ×7 (08:19→21:22)
[2020-07-31 08:26] LABS: Bedside Glucose 219 mg/dL (70-110)
[2020-07-31 08:50] LABS: Vitamin D,25 Hydroxy 34.6 ng/mL
--- NOTE | 2020-07-31 09:54 | CASEMGMT ---
PAMELA ALVAREZ NOTE: Pt qualifies for a Palliative referral per the [facility] palliative screening tool at this time. Dr Strauss made/he is not agreeable to Palliative referral at this time. Nyasia BERKOWITZ RN CM
--- NOTE | 2020-07-31 10:00 | PN.HOSP_ITS ---
Subjective Subjective still having pain in right ankle. the current oxycodone and hydromorphine are not effective enough. At baseline, patient is a wheelchair-bound ever since her left ankle fracture. Patient was up in her kitchen, which is actually more activity than she is used to doing, where she was feeling dizzy and putting weight on her right ankle and felt a snap and then she went down. Objective Data Objective Data Vital Signs: Vital Signs Temp Pulse Resp BP Pulse Ox 37.0 C 104 H 16 126/77 H 93 07/31/20 04:00 07/31/20 07:12 07/31/20 07:12 07/31/20 04:00 07/31/20 07:12 Oxygen Flow Rate (L/min) 3 Oxygen Delivery Method [2] Nasal Cannula Oxygen Delivery Method [1 ( Nasal Cannula Initial Baseline)] Oxygen Delivery Method Room Air Weight: 107 kg Body Mass Index (BMI) 41.8 Intake & Output: Intake and Output for Last 24 Hours 07/29/20 07/30/20 07/31/20 23:59 23:59 23:59 Intake Total 1000 / 1120 1240 / 1240 Output Total 250 / 250 Balance 1000 / 1120 990 / 990 Lab / Micro Data Attestation: I reviewed the patient's lab results. Result Diagrams: 07/31/20 05:48 07/31/20 05:48 Labs: Laboratory Results - last 24 hr 07/30/20 07/30/20 07/30/20 19:00 19:00 19:00 WBC 16.4 H RBC 5.08 Hgb 16.0 H Hct 48.0 H MCV 94.5 MCH 31.5 MCHC 33.3 RDW Std Deviation 47.5 H RDW Coeff of Kaycee 13.6 Plt Count 310 MPV 9.9 Immature Gran % (Auto) 0.500 Neut % (Auto) 80.8 H Lymph % (Auto) 10.[address] [place] [place] % (Auto) 6.2 Eos % (Auto) 1.3 Baso % (Auto) 0.8 Absolute Neuts (auto) 13.2 H Absolute Lymphs (auto) 1.70 Nucleated RBC % 0 PT 14.6 INR 1.2 Sodium 132 L Potassium 4.1 Chloride 100 Carbon Dioxide 24.0 Anion Gap 8 BUN 13 Creatinine 1.59 H Estim Creat Clear Calc 34.93 Est GFR (MDRD) Af Amer 43 L Est GFR (MDRD) Non-Af 36 L BUN/Creatinine Ratio 8.2 L Glucose 208 H Calcium 10.2 H Vitamin D 25-Hydroxy POC Glucose 07/30/20 07/31/20 07/31/20 23:18 05:30 05:48 WBC 15.5 H RBC 4.59 Hgb 14.2 Hct 43.9 MCV 95.6 MCH 30.9 MCHC 32.3 RDW Std Deviation 48.9 H RDW Coeff of Kaycee 13.7 Plt Count 259 MPV 9.6 Immature Gran % (Auto) 0.500 Neut % (Auto) 79.8 H Lymph % (Auto) 10.[address] [place] % (Auto) 7.4 Eos % (Auto) 1.4 Baso % (Auto) 0.8 Absolute Neuts (auto) 12.4 H Absolute Lymphs (auto) 1.56 Nucleated RBC % 0 PT INR Sodium Potassium Chloride Carbon Dioxide Anion Gap BUN Creatinine Estim Creat Clear Calc Est GFR (MDRD) Af Amer Est GFR (MDRD) Non-Af BUN/Creatinine Ratio Glucose Calcium Vitamin D 25-Hydroxy 34.6 POC Glucose 208 H 07/31/20 07/31/20 05:48 08:17 WBC RBC Hgb Hct MCV MCH MCHC RDW Std Deviation RDW Coeff of Kaycee Plt Count MPV Immature Gran % (Auto) Neut % (Auto) Lymph % (Auto) [place] % (Auto) Eos % (Auto) Baso % (Auto) Absolute Neuts (auto) Absolute Lymphs (auto) Nucleated RBC % PT INR Sodium 136 Potassium 3.9 Chloride 106 Carbon Dioxide 23.0 Anion Gap 7 BUN 12 Creatinine 0.84 Estim Creat Clear Calc 63.33 Est GFR (MDRD) Af Amer 90 Est GFR (MDRD) Non-Af 75 BUN/Creatinine Ratio 14.2 Glucose 174 H Calcium 9.2 Vitamin D 25-Hydroxy POC Glucose 219 H Radiography Diagnostic Testing: Radiology Impression Ankle X-Ray 07/30/20 19:45 IMPRESSION: Trimalleolar fracture with mild lateral subluxation of the talus in relation to the tibia. There is associated soft tissue swelling. at 2034 Reported and signed by: Todd Lux MD Electronically Signed: Todd Lux MD at 20:33 EDT Tel , Service support , Ankle X-Ray 07/30/20 21:00 IMPRESSION: Casting and closed reduction of an ankle fracture. Alignment is anatomic at 2136 Reported and signed by: Todd Lux MD Electronically Signed: Todd Lux MD at 21:35 EDT Tel , Service support , Lower Extremity CT 07/31/20 07:20 IMPRESSION: Trimalleolar fracture. Small intra-articular fragment in the tibiotalar articulation. Electronically Signed: Curtis Srivastava MD at 8:24 EDT Tel , Service support , Physical Exam Narrative Right foot and ankle in a cast.?Normal cap refill on the distal toes on the right. Pulses intact on the left without edema. Const alert Exam Limitations: no limitations Cardio regular rate, regular rhythm, S1 normal heart sound and S2 normal heart sound GI normal to inspection, nondistended, normoactive bowel sounds Neuro Sensorium / Orientation: awake and alert Psych affect normal Assessment & Plan Assessment/Plan (1) Closed trimalleolar fracture of right ankle: QUALIFIERS: Encounter type: initial encounter Qualified Code(s): S82.851A - Displaced trimalleolar fracture of right lower leg, initial encounter for closed fracture (2) ZUHAIR (acute kidney injury): (3) Acute hypotension: (4) Type 2 diabetes mellitus with diabetic polyneuropathy: QUALIFIERS: Diabetes mellitus chcf insulin use: with chcf use Qualified Code(s): E11.42 - Type 2 diabetes mellitus with diabetic polyneuropathy; Z79.4 - USP (current) use of insulin (5) Severe persistent asthma: QUALIFIERS: Asthma complication type: uncomplicated Qualified Code(s): J45.50 - Severe persistent asthma, uncomplicated (6) Stage 2 moderate COPD by GOLD classification: (7) H/O heart artery stent: PLAN: This is a 54 years old female patient presented to the emergency room because of dizziness, fall followed by right ankle pain, found to have hypotension, acute kidney injury and acute traumatic right ankle fracture and sh e is being admitted for evaluation and treatment. 1. hypotension/near syncopal episode: * Resolved. * Probably commendation of patient's poor performance status and the fact that she is wheelchair-bound but also component of the patient's antihypertensives which have been held. 2. acute traumatic trimalleolar fracture of the right ankle: * Due to mechanical fall versus fracture from just standing on it. Patient stated that her she felt that her ankle snapped and then she went down. * Patient still with significant pain so increase the hydromorphone from 0.5 to 1 mg also expand the oxycodone from 5 from pain level of 4-5 and 10 mg for a pain level of 6-10. * Check a 25-hydroxy vitamin D level. * Podiatry following. Patient NSQIP is medically optimized and does carry higher risk given her medical comorbidities and poor performance status but not prohibitive to undergo surgery. Patient has taken apixaban as well clopidogrel. Her last dose of clopidogrel was on the 26. Discussed with podiatry who is aware. 3. acute kidney injury: * resolved * Prerenal due to dehydration. 4. type 2 diabetes mellitus: * fair control * ADA diet, Accu-Cheks, insulin sliding scale, continue home dose of insulin 6. CAD status post stents: * last PCI was around 2007 * hold clopidogrel for surgery * continue metoprolol 7. COPD/severe asthma: * Stable, * Plan for DuoNeb every 6 hours, albuterol as needed, incentive spirometer. 8. hypertension: * Blood pressure is low but improved, plan as above, hold Norvasc and lisinopril 9. anxiety and depression: * Continue trazodone and Xanax. 10. history of PEs: * Hold Eliquis for now. Likely resume after surgery 11. DVT prophylaxis: SCDs. Visit Charges Inpatient E&M: [id number] [facility] Hosp L3
[2020-07-31] MEDS: 0.9% Saline Lock 10 ML Syringe IV ×3 (10:46→21:23)
[2020-07-31] MEDS: HYDROmorphone 1 MG/ML Syringe IV ×3 (10:47→21:23)
[2020-07-31] MEDS: Metoprolol(XL)Succ 50 MG Tablet PO (10:52)
[2020-07-31] MEDS: Mirabegron 25 MG TAB.ER.24H PO (10:52)
--- NOTE | 2020-07-31 10:55 | CASEMGMT ---
MAURO reviewed chart and when patient broke her left ankle last year she went to a SNF at d/c. This visit she broke her right ankle. MAURO spoke with patient. Introduced self and role at [facility]. She confirmed she plans on going to a halfway at discharge. She said she was thinking about [facility]. SW Patient with a list of SNF providers including quality and resource use data and consistent with the patient?s preferred geographic region, medical needs, and insurance network. MAURO told her that when it gets closer to d/c time MAURO will check back in with her to make sure [facility] is still her first choice and will then work on referrals. She thanked MAURO for the list. Plan: SNF pending patient being medically ready. She is interested in [facility]. Once we are closer to d/c SW will make referrals. She will require insurance authorization as well. Aliya STUBBS
[2020-07-31] MEDS: busPIRone 15 MG TABLET 30 MG PO ×2 (10:57→21:23)
[2020-07-31 12:31] LABS: Bedside Glucose 191 mg/dL (70-110)
[2020-07-31] MEDS: oxyCODONE 5 MG Tablet 10 MG PO (12:31)
--- NOTE | 2020-07-31 12:37 | CASEMGMT ---
MAURO did send initial referral to [facility]. MAURO also called Bianca regarding referral and let her know patient is having surgery Monday. Aliya STUBBS
[2020-07-31] MEDS: ALPRAZolam 0.5 MG Tablet PO (14:18)
[2020-07-31 17:10] LABS: Bedside Glucose 151 mg/dL (70-110)
[2020-07-31] MEDS: tiZANidine HCl 2 MG Tablet 6 MG PO (18:35)
--- NOTE | 2020-07-31 19:37 | CPS ---
Pt currently refuses bipap and stated she would not like to wear it at night also.
[2020-07-31] MEDS: HYDROcodone Bitartrate/Apap 5/325 Tablet PO (19:54)
[2020-07-31] MEDS: Montelukast 10 MG Tablet PO (21:22)
[2020-07-31] MEDS: traZODone 100 MG Tablet 200 MG PO (21:23)
[2020-07-31] MEDS: Atorvastatin Calcium 80 MG Tablet PO (21:23)
[2020-07-31] MEDS: RisperiDONE 2 MG Tablet 4 MG PO (21:23)
[2020-07-31 22:10] LABS: Bedside Glucose 199 mg/dL (70-110)
[2020-08-01] VITALS (15 sets, daily range): BP systolic 118–160; BP diastolic 64–88; PULSE 67–93; RESP 16–20; TEMP 36.1–36.8; O2SAT 93–96
[2020-08-01] MEDS: HYDROcodone Bitartrate/Apap 5/325 Tablet PO ×4 (00:58→20:18)
[2020-08-01] MEDS: Famotidine 20 MG Tablet PO ×3 (00:59→21:50)
[2020-08-01] MEDS: Ipratropium/Albuterol Sulfate 3 ML AMPUL.NEB INHALATION ×3 (01:35→19:20)
[2020-08-01] MEDS: tiZANidine HCl 2 MG Tablet 6 MG PO ×2 (04:31→12:56)
[2020-08-01] MEDS: HYDROmorphone 1 MG/ML Syringe IV ×4 (04:31→22:23)
[2020-08-01] MEDS: Pregabalin 75 MG Capsule PO ×3 (05:59→21:53)
[2020-08-01 08:06] LABS: Absolute Lymphocyte Count 1.46 X10^3/uL (0.83-4.51); Absolute Neutrophil Count 9.3 X10^3/uL (2.0-7.7); Basophil# 0.09 X10^3/uL; Basophil% 0.7 % (0-1); Eosinophil# 0.16 X10^3/uL; Eosinophils% 1.3 % (0-5); Hematocrit 41.1 % (37-47); Lymphocyte # 1.46 X10^3/ul (0.83-4.51); Lymphocyte % 12.1 % (19-41); Mean Corp Hgb Conc 31.6 g/dL (32-36); Mean Corpuscular Hgb 30.7 pg (27.0-32.0); Mean Corpuscular Volume 96.9 fL (81-99); Mean Platelet Vol. 9.8 fl (6.2-12.0); Monocyte# 1.07 X10^3/uL; Monocyte% 8.9 % (0-10); NRBC Flagged by Analyzer 0 % (0-5); Neutrophil # 9.26 X10^3/uL (2.7-7.7); Neutrophil % 76.7 % (47-70); Platelet Count 239 K/mm3 (150-450); RBC Distribution Width CV 13.6 % (11.6-14.6); RBC Distribution Width SD 48.9 fl (35.1-43.9); Red Blood Count 4.24 M/mm3 (4.2-5.4); White Blood Count 12.1 K/mm3 (4.4-11.0)
[2020-08-01] MEDS: Sucralfate 1 GM Tablet PO ×4 (08:21→21:49)
[2020-08-01] MEDS: busPIRone 15 MG TABLET 30 MG PO ×2 (08:21→21:49)
[2020-08-01] MEDS: Enoxaparin 100 MG/ML Syringe SC ×2 (08:21→21:49)
[2020-08-01] MEDS: Dicyclomine 10 MG Capsule 20 MG PO ×3 (08:21→16:03)
[2020-08-01] MEDS: Metoprolol(XL)Succ 50 MG Tablet PO (08:21)
[2020-08-01 08:24] LABS: Anion Gap 5 (5-15); BUN 8 mg/dL (7-18); BUN/Creat Ratio 12.1 RATIO (10-20); Calcium,Total 9.6 mg/dL (8.5-10.1); Chloride 107 mmol/L (98-107); Creatinine, Serum 0.66 mg/dL (0.55-1.02); EST Glomerular Filtration Rate 99 mL/min (>60); Est Glom Filt Rate - Afr Amer 120 mL/min (>60); Estimated Creatinine Clearance 80.61 ml/min; Glucose 168 mg/dL (74-106); Potassium 4.1 mmol/L (3.5-5.1); Sodium Level 136 mmol/L (136-145)
[2020-08-01] MEDS: Mirabegron 25 MG TAB.ER.24H PO (08:24)
[2020-08-01] MEDS: Insulin Lispro 100 UNIT/ML INSULN.PEN SC ×4 (08:27→16:04)
[2020-08-01 08:46] LABS: Bedside Glucose 176 mg/dL (70-110)
--- NOTE | 2020-08-01 11:13 | PN_ITS ---
Subjective Subjective Patient seen and examined resting comfortably. Patient denies any new pedal complaints. Patient denies any nausea, fever, chills, chest pain, shortness of breath, cough, streaking, purulence, vomiting. Patient is resting comfortably in bed even though she states that her foot and ankle pain is an 8 out of 10 she appears in no acute distress Objective Data Objective Data Vital Signs: Vital Signs Temp Pulse Resp BP Pulse Ox 98.0 F 73 16 138/78 H 95 08/01/20 08:36 08/01/20 08:36 08/01/20 08:36 08/01/20 08:36 08/01/20 08:36 Oxygen Flow Rate (L/min) 3 Oxygen Delivery Method [2] Nasal Cannula Oxygen Delivery Method [1 ( Nasal Cannula Initial Baseline)] Oxygen Delivery Method Nasal Cannula Weight: 107 kg Body Mass Index (BMI) 41.8 Intake & Output: Intake and Output for Last 24 Hours 07/30/20 07/31/20 08/01/20 23:59 23:59 23:59 Intake Total 1000 / 1120 3635 / 4035 640 / 640 Output Total 1250 / 1800 1150 / 1150 Balance 1000 / 1120 2385 / 2235 -510 / -510 Lab / Micro Data Result Diagrams: 08/01/20 07:19 08/01/20 07:19 Labs: Laboratory Results - last 24 hr 07/31/20 07/31/20 07/31/20 12:23 17:03 21:21 WBC RBC Hgb Hct MCV MCH MCHC RDW Std Deviation RDW Coeff of Kaycee Plt Count MPV Immature Gran % (Auto) Neut % (Auto) Lymph % (Auto) [place] % (Auto) Eos % (Auto) Baso % (Auto) Absolute Neuts (auto) Absolute Lymphs (auto) Nucleated RBC % Sodium Potassium Chloride Carbon Dioxide Anion Gap BUN Creatinine Estim Creat Clear Calc Est GFR (MDRD) Af Amer Est GFR (MDRD) Non-Af BUN/Creatinine Ratio Glucose Calcium POC Glucose 191 H 151 H 199 H 08/01/20 08/01/20 08/01/20 07:19 07:19 08:26 WBC 12.1 H RBC 4.24 Hgb 13.0 Hct 41.1 MCV 96.9 MCH 30.7 MCHC 31.6 L RDW Std Deviation 48.9 H RDW Coeff of Kaycee 13.6 Plt Count 239 MPV 9.8 Immature Gran % (Auto) 0.300 Neut % (Auto) 76.7 H Lymph % (Auto) 12.1 L [place] % (Auto) 8.9 Eos % (Auto) 1.3 Baso % (Auto) 0.7 Absolute Neuts (auto) 9.3 H Absolute Lymphs (auto) 1.46 Nucleated RBC % 0 Sodium 136 Potassium 4.1 Chloride 107 Carbon Dioxide 24.0 Anion Gap 5 BUN 8 Creatinine 0.66 Estim Creat Clear Calc 80.61 Est GFR (MDRD) Af Amer 120 Est GFR (MDRD) Non-Af 99 BUN/Creatinine Ratio 12.1 Glucose 168 H Calcium 9.6 POC Glucose 176 H Physical Exam Const alert and no apparent distress General Appearance: cooperative and comfortable Resp Effort and Inspection: able to speak in complete sentences Extremity normal capillary refill and no calf tenderness Extremity Narrative: Posterior splint to right lower extremity clean dry and intact. General Extremity: edema bilateral lower extremity and other findings Other Details: Capillary refill time less than 3 seconds noted to digits ; Negative for clubbing or cyanosis Skin General Skin Exam: atrophy and dry skin; Negative for ecchymosis, erythema, eschar, pallor or dermatitis Rashes: no rashes Neuro Sensory Exam: extremities light-touch: decreased Psych Appearance: appropriate Attitude: calm Assessment & Plan Assessment/Plan (1) Closed trimalleolar fracture of right ankle: QUALIFIERS: Encounter type: initial encounter Qualified Code(s): S82.851A - Displaced trimalleolar fracture of right lower leg, initial encounter for closed fracture (2) Diabetic polyneuropathy: QUALIFIERS: Diabetes mellitus type: type 2 Qualified Code(s): E11.42 - Type 2 diabetes mellitus with diabetic polyneuropathy (3) Type 2 diabetes mellitus: QUALIFIERS: Diabetes mellitus complication status: with neurologic complications Diabetes mellitus complication detail: with polyneuropathy Diabetes mellitus halfway insulin use: with halfway use Qualified Code(s): E11.42 - Type 2 diabetes mellitus with diabetic polyneuropathy; Z79.4 - prison (current) use of insulin (4) Morbid obesity: (5) Vitamin D deficiency: (6) Tobacco abuse: (7) Ankle pain, right: QUALIFIERS: Chronicity: acute Qualified Code(s): M25.571 - Pain in right ankle and joints of right foot PLAN: Patient seen and examined bedside appearing comfortable without obvious signs of distress Patient noted to have closed right ankle trimalleolar fracture which is currently in a posterior splint Patient has history of poor wound healing. Patient broke the left ankle back in November [address] Mitchell of which she has had problems healing both the bone and the skin. She was just discharged from the wound care center for delayed incision healing this week. Patient has significant risk factors for delayed healing including smoking about 2 packs a day of cigarettes, hemoglobin A1c of 10.2 on 06/01/2020, history of vitamin D deficiency, morbid obesity along with her history of not being able to heal her other ankle. Patient noted to have vitamin D count of 34.6 on 07/31/2020. Is noted this is on the low end of normal. This may still impact her wound healing ability. Patient will need to undergo surgery in order to fix her right ankle fracture. It was noted that patient is taking Plavix in addition to Eliquis. We will need to wait 5 to 7 days for the Plavix to clear her system prior to going to surgery. This was communicated with the patient as she is not noted to have been on Plavix just the Eliquis according to her med rec list upon admission. Patient understands is agreeable to treatment course. Discussed with the patient all risk associated with undergoing surgery as regards to COVID-19 exposure. Discussed all risks, benefits, alternatives, and complications including but not limited to infection, delayed healing, nonhealing, and/or need for further surgery with the patient. No guarantees were given or implied. Patient agreed to proceed with the procedure. All questions answered. Right ankle x-rays were reviewed and discussed with the patient in detail. CT was also obtained and reviewed with patient demonstrating trimalleolar fracture with small intra-articular fragment in the tibiotalar articulation. Continue pain management. All questions answered. Current plan is for surgery either Monday or Monday pending OR availability. Given the holiday week and will not be able to assess or availability until Monday. Patient is aware of this. Will place n.p.o. for Monday just in case and adjust if needed. Please contact if any questions or concerns. Roxane Del Angel DPM [facility] [phone] This note was generated with [employer] dictation software. It may contain incorr ect words, spelling, and punctuation that were not noted in checking the note before signing.
--- NOTE | 2020-08-01 11:42 | CASEMGMT ---
Addendum entered by Beatriz Macario 08/01/20 18:18: RN inquired if patient could go to [facility] till Surgery and then return to [facility] for surgery on Monday. SW reviewed patient's insurance. She would need precert for placement. industrial hygienist Gurdeep updated. Beatriz ENRIQUEZ Original Note: MAURO Note SW Referral Reason: industrial hygienist voiced to that patient is going to [facility] ([facility]) at discharge Referral Source: CM noted that industrial hygienist is requesting clarification about discharge plan for rehab. SW reviewed note. MAURO met with patient. Patient said that she would like to stay at [facility] for rehab as her first choice but her second choice is [facility] ([facility]) Patient was advised that referral had already been made to [facility] and patient was comfortable with that plan. Plan: [facility] at discharge Beatriz ENRIQUEZ
--- NOTE | 2020-08-01 15:14 | PN.HOSP_ITS ---
Subjective Subjective groggy this AM. Shortly afterwards was requesting hydromorphone. Objective Data Objective Data Vital Signs: Vital Signs Temp Pulse Resp BP Pulse Ox 36.7 C 71 16 138/78 H 95 08/01/20 08:36 08/01/20 14:59 08/01/20 08:36 08/01/20 08:36 08/01/20 08:36 Oxygen Flow Rate (L/min) 3 Oxygen Delivery Method [2] Nasal Cannula Oxygen Delivery Method [1 ( Nasal Cannula Initial Baseline)] Oxygen Delivery Method Nasal Cannula Weight: 107 kg Body Mass Index (BMI) 41.8 Intake & Output: Intake and Output for Last 24 Hours 07/30/20 07/31/20 08/01/20 23:59 23:59 23:59 Intake Total 1000 / 1120 3635 / 4035 640 / 640 Output Total 1250 / 1800 1350 / 1350 Balance 1000 / 1120 2385 / 2235 -710 / -710 Lab / Micro Data Attestation: I reviewed the patient's lab results. Result Diagrams: 08/01/20 07:19 08/01/20 07:19 Labs: Laboratory Results - last 24 hr 07/31/20 07/31/20 08/01/20 17:03 21:21 07:19 WBC 12.1 H RBC 4.24 Hgb 13.0 Hct 41.1 MCV 96.9 MCH 30.7 MCHC 31.6 L RDW Std Deviation 48.9 H RDW Coeff of Kaycee 13.6 Plt Count 239 MPV 9.8 Immature Gran % (Auto) 0.300 Neut % (Auto) 76.7 H Lymph % (Auto) 12.1 L [place] % (Auto) 8.9 Eos % (Auto) 1.3 Baso % (Auto) 0.7 Absolute Neuts (auto) 9.3 H Absolute Lymphs (auto) 1.46 Nucleated RBC % 0 Sodium Potassium Chloride Carbon Dioxide Anion Gap BUN Creatinine Estim Creat Clear Calc Est GFR (MDRD) Af Amer Est GFR (MDRD) Non-Af BUN/Creatinine Ratio Glucose Calcium POC Glucose 151 H 199 H 08/01/20 08/01/20 07:19 08:26 WBC RBC Hgb Hct MCV MCH MCHC RDW Std Deviation RDW Coeff of Kaycee Plt Count MPV Immature Gran % (Auto) Neut % (Auto) Lymph % (Auto) [place] % (Auto) Eos % (Auto) Baso % (Auto) Absolute Neuts (auto) Absolute Lymphs (auto) Nucleated RBC % Sodium 136 Potassium 4.1 Chloride 107 Carbon Dioxide 24.0 Anion Gap 5 BUN 8 Creatinine 0.66 Estim Creat Clear Calc 80.61 Est GFR (MDRD) Af Amer 120 Est GFR (MDRD) Non-Af 99 BUN/Creatinine Ratio 12.1 Glucose 168 H Calcium 9.6 POC Glucose 176 H Physical Exam Const alert HEENT Head and Scalp: normocephalic Resp normal respiratory effort and clear to auscultation bilaterally Cardio regular rate, regular rhythm, S1 normal heart sound and S2 normal heart sound GI normal to inspection, nondistended, normoactive bowel sounds, non-tender and non-distended Neuro oriented x3 Sensorium / Orientation: awake and alert Psych affect normal Assessment & Plan Assessment/Plan (1) Closed trimalleolar fracture of right ankle: QUALIFIERS: Encounter type: initial encounter Qualified Code(s): S82.851A - Displaced trimalleolar fracture of right lower leg, initial encounter for closed fracture (2) ZUHAIR (acute kidney injury): (3) Acute hypotension: (4) Type 2 diabetes mellitus with diabetic polyneuropathy: QUALIFIERS: Diabetes mellitus penitentiary insulin use: with penitentiary use Qualified Code(s): E11.42 - Type 2 diabetes mellitus with diabetic polyneuropathy; Z79.4 - watermelon inspector (current) use of insulin (5) Severe persistent asthma: QUALIFIERS: Asthma complication type: uncomplicated Qualified Code(s): J45.50 - Severe persistent asthma, uncomplicated (6) Stage 2 moderate COPD by GOLD classification: (7) H/O heart artery stent: PLAN: This is a 54 years old female patient presented to the emergency room because of dizziness, fall followed by right ankle pain, found to have hypotension, acute kidney injury and acute traumatic right ankle fracture and she is being admitted for evaluation and treatment. 1. hypotension/near syncopal episode: * Resolved. * Probably commendation of patient's poor performance status and the fact that she is wheelchair-bound but also component of the patient's antihypertensives which have been held. 2. acute traumatic trimalleolar fracture of the right ankle: * Due to mechanical fall versus fracture from just standing on it. Patient stated that her she felt that her ankle snapped and then she went down. * Patient still with significant pain so increase the hydromorphone from 0.5 to 1 mg also expand the oxycodone from 5 from pain level of 4-5 and 10 mg for a pain level of 6-10. * Check a 25-hydroxy vitamin D level. * Podiatry following. Patient GONZALO is medically optimized and does carry higher risk given her medical comorbidities and poor performance status but not prohibitive to undergo surgery. Patient has taken apixaban as well clopidogrel. Her last dose of clopidogrel was on the . Discussed with podiatry who is aware. * Plan for surgery on 08/05 or 08/06 3. acute kidney injury: * resolved * Prerenal due to dehydration. 4. type 2 diabetes mellitus: * fair control * ADA diet, Accu-Cheks, insulin sliding scale, continue home dose of insulin 6. CAD status post stents: * last PCI was around 2007 * hold clopidogrel for surgery * continue metoprolol 7. COPD/severe asthma: * Stable, * Plan for DuoNeb every 6 hours, albuterol as needed, incentive spirometer. 8. hypertension: * Blood pressure is low but improved, plan as above, hold Norvasc and lisinopril 9. anxiety and depression: * Continue trazodone and Xanax. 10. history of PEs: * Hold Eliquis for now. Likely resume after surgery * Currently on enoxaparin 11. DVT prophylaxis: anticoagulated Visit Charges Inpatient E&M: 34951 Subs Hosp L2
[2020-08-01 16:41] LABS: Bedside Glucose 174 mg/dL (70-110)
[2020-08-01] MEDS: Mag Hydrox/Al Hydrox/Simeth 30 ML UDC 15 ML PO (20:18)
[2020-08-01] MEDS: 0.9% Saline Lock 10 ML Syringe IV ×2 (20:21→22:23)
[2020-08-01] MEDS: guaiFENesin 10 ML UDC (200MG/10ML) PO (20:24)
[2020-08-01] MEDS: Atorvastatin Calcium 80 MG Tablet PO (21:49)
[2020-08-01] MEDS: Montelukast 10 MG Tablet PO (21:49)
[2020-08-01] MEDS: traZODone 100 MG Tablet 200 MG PO (21:50)
[2020-08-01] MEDS: RisperiDONE 2 MG Tablet 4 MG PO (21:51)
[2020-08-01] MEDS: Menthol/Lanolin/Calamine/Znox 113 GM Tube 1 APPLIC TOPICAL (21:53)
[2020-08-01 21:55] LABS: Bedside Glucose 126 mg/dL (70-110)
[2020-08-02] VITALS (11 sets, daily range): BP systolic 93–133; BP diastolic 49–80; PULSE 60–93; RESP 14–16; TEMP 36.6–36.9; O2SAT 92–98
[2020-08-02] MEDS: tiZANidine HCl 2 MG Tablet 6 MG PO ×3 (00:21→17:57)
[2020-08-02] MEDS: Ipratropium/Albuterol Sulfate 3 ML AMPUL.NEB INHALATION ×2 (00:41→19:20)
[2020-08-02] MEDS: 0.9% Saline Lock 10 ML Syringe IV ×3 (06:16→17:57)
[2020-08-02] MEDS: Pregabalin 75 MG Capsule PO ×3 (06:16→21:42)
[2020-08-02] MEDS: HYDROmorphone 1 MG/ML Syringe IV ×2 (06:16→17:56)
[2020-08-02] MEDS: Menthol/Lanolin/Calamine/Znox 113 GM Tube 1 APPLIC TOPICAL ×3 (06:16→21:43)
[2020-08-02 07:05] LABS: Bedside Glucose 116 mg/dL (70-110)
[2020-08-02] MEDS: HYDROcodone Bitartrate/Apap 5/325 Tablet PO (07:26)
[2020-08-02] MEDS: Sucralfate 1 GM Tablet PO ×4 (07:33→21:44)
[2020-08-02] MEDS: Mirabegron 25 MG TAB.ER.24H PO (07:33)
[2020-08-02] MEDS: Dicyclomine 10 MG Capsule 20 MG PO ×3 (07:33→16:47)
[2020-08-02] MEDS: busPIRone 15 MG TABLET 30 MG PO ×2 (07:33→21:44)
[2020-08-02] MEDS: Metoprolol(XL)Succ 50 MG Tablet PO (07:34)
[2020-08-02] MEDS: Famotidine 20 MG Tablet PO ×2 (07:36→21:47)
[2020-08-02] MEDS: Enoxaparin 100 MG/ML Syringe SC ×2 (07:37→21:42)
[2020-08-02] MEDS: Insulin Lispro 100 UNIT/ML INSULN.PEN SC ×2 (07:38→11:08)
[2020-08-02] MEDS: Ondansetron 4 MG/2 ML Vial IV (08:52)
[2020-08-02] MEDS: HYDROmorphone 2 MG TABLET PO ×5 (10:32→23:56)
--- NOTE | 2020-08-02 10:33 | PN_ITS ---
Subjective Subjective Patient seen and examined resting comfortably. Patient denies any new pedal complaints. Patient denies any nausea, fever, chills, chest pain, shortness of breath, cough, streaking, purulence, vomiting. She relates still having some pain in her right ankle but it is improving Objective Data Objective Data Vital Signs: Vital Signs Temp Pulse Resp BP Pulse Ox 98.4 F 93 16 121/64 H 92 08/02/20 07:50 08/02/20 09:00 08/02/20 07:50 08/02/20 07:50 08/02/20 07:50 Oxygen Flow Rate (L/min) 3 Oxygen Delivery Method [2] Nasal Cannula Oxygen Delivery Method [1 ( Nasal Cannula Initial Baseline)] Oxygen Delivery Method Nasal Cannula Weight: 107 kg Body Mass Index (BMI) 41.8 Intake & Output: Intake and Output for Last 24 Hours 07/31/20 08/01/20 08/02/20 23:59 23:59 23:59 Intake Total 3635 / 4035 640 / 940 420 / 420 Output Total 1250 / 1800 1950 / 2850 2049 / 2049 Balance 2385 / 2235 -1310 / -1910 -1630 / -1630 Lab / Micro Data Result Diagrams: 08/01/20 07:19 08/01/20 07:19 Labs: Laboratory Results - last 24 hr 08/01/20 08/01/20 08/02/20 16:02 21:45 06:19 POC Glucose 174 H 126 H 116 H Physical Exam Const alert and no apparent distress General Appearance: cooperative and comfortable Resp Effort and Inspection: able to speak in complete sentences Extremity normal capillary refill and no calf tenderness Extremity Narrative: Posterior splint to right lower extremity clean dry and intact. Sensation is intact to light touch to her toes. Toes are of normal color with normal capillary refill time and normal temperature. General Extremity: edema bilateral lower extremity and other findings Other Details: Capillary refill time less than 3 seconds noted to digits ; Negative for clubbing or cyanosis Skin General Skin Exam: atrophy and dry skin; Negative for ecchymosis, erythema, eschar, pallor or dermatitis Rashes: no rashes Neuro Sensory Exam: extremities light-touch: decreased Psych Appearance: appropriate Attitude: calm Assessment & Plan Assessment/Plan (1) Closed trimalleolar fracture of right ankle: QUALIFIERS: Encounter type: initial encounter Qualified Code(s): S82.851A - Displaced trimalleolar fracture of right lower leg, initial encounter for closed fracture (2) Diabetic polyneuropathy: QUALIFIERS: Diabetes mellitus type: type 2 Qualified Code(s): E11.42 - Type 2 diabetes mellitus with diabetic polyneuropathy (3) Type 2 diabetes mellitus: QUALIFIERS: Diabetes mellitus complication status: with neurologic complications Diabetes mellitus complication detail: with polyneuropathy Diabetes mellitus intermission coordinator insulin use: with snf use Qualified Code(s): E11.42 - Type 2 diabetes mellitus with diabetic polyneuropathy; Z79.4 - correction (current) use of insulin (4) Morbid obesity: (5) Vitamin D deficiency: (6) Tobacco abuse: (7) Ankle pain, right: QUALIFIERS: Chronicity: acute Qualified Code(s): M25.571 - Pain in right ankle and joints of right foot PLAN: Patient seen and examined bedside appearing comfortable without obvious signs of distress Patient noted to have closed right ankle trimalleolar fracture which is currently in a posterior splint Patient has history of poor wound healing. Patient broke the left ankle back in November [address] Mitchell of which she has had problems healing both the bone and the skin. She was just discharged from the wound care center for delayed incision healing this week. Patient has significant risk factors for delayed healing including smoking about 2 packs a day of cigarettes, hemoglobin A1c of 10.2 on 06/01/2020, history of vitamin D deficiency, morbid obesity along with her history of not being able to heal her other ankle. Patient noted to have vitamin D count of 34.6 on 07/31/2020. Is noted this is on the low end of normal. This may still impact her wound healing ability. Patient will need to undergo surgery in order to fix her right ankle fracture. It was noted that patient is taking Plavix in addition to Eliquis. We will need to wait 5 to 7 days for the Plavix to clear her system prior to going to surgery. This was communicated with the patient as she is not noted to have been on Plavix just the Eliquis according to her med rec list upon admission. Patient understands is agreeable to treatment course. Discussed with the patient all risk associated with undergoing surgery as regards to COVID-19 exposure. Discussed all risks, benefits, alternatives, and complications including but not limited to infection, delayed healing, nonhealing, and/or need for further surgery with the patient. No guarantees were given or implied. Patient agreed to proceed with the procedure. All questions answered. Right ankle x-rays were reviewed and discussed with the patient in detail. CT was also obtained and reviewed with patient demonstrating trimalleolar fracture with small intra-articular fragment in the tibiotalar articulation. Continue pain management. All questions answered. Tentative current plan is for surgery either Monday or Monday pending OR availability. Given the holiday week and will not be able to assess or availability until Monday. Patient is aware of this. Will place n.p.o. for Monday just in case and adjust if needed. Please contact if any questions or concerns. Roxane Del Angel DPM [facility] [phone] This note was generated with [employer] dictation software. It may contain incorrect words, spelling, and punctuation that were not noted in checking the note before signing.
[2020-08-02 11:15] LABS: Bedside Glucose 141 mg/dL (70-110)
[2020-08-02] MEDS: ALPRAZolam 0.5 MG Tablet PO (13:26)
--- NOTE | 2020-08-02 13:49 | PN.HOSP_ITS ---
Subjective Subjective Still with pain. The Ellsworth is not helping. Objective Data Objective Data Vital Signs: Vital Signs Temp Pulse Resp BP Pulse Ox 36.6 C 64 14 114/69 97 08/02/20 13:23 08/02/20 13:23 08/02/20 13:23 08/02/20 13:23 08/02/20 13:23 Oxygen Flow Rate (L/min) 3 Oxygen Delivery Method [2] Nasal Cannula Oxygen Delivery Method [1 ( Nasal Cannula Initial Baseline)] Oxygen Delivery Method Nasal Cannula Weight: 107 kg Body Mass Index (BMI) 41.8 Intake & Output: Intake and Output for Last 24 Hours 07/31/20 08/01/20 08/02/20 23:59 23:59 23:59 Intake Total 3635 / 4035 640 / 940 420 / 420 Output Total 1250 / 1800 1950 / 2850 2650 / 2650 Balance 2385 / 2235 -1310 / -1910 -2230 / -2230 Lab / Micro Data Attestation: I reviewed the patient's lab results. Result Diagrams: 08/01/20 07:19 08/01/20 07:19 Labs: Laboratory Results - last 24 hr 08/01/20 08/01/20 08/02/20 16:02 21:45 06:19 POC Glucose 174 H 126 H 116 H 08/02/20 11:06 POC Glucose 141 H Physical Exam Const alert and oriented x3 Resp normal respiratory effort and clear to auscultation bilaterally Cardio regular rate, regular rhythm, S1 normal heart sound and S2 normal heart sound GI normal to inspection, nondistended, normoactive bowel sounds, non-tender and non-distended Extremity normal to inspection Extremity Narrative: Right leg and ankle and foot casted Neuro Sensorium / Orientation: awake and alert Assessment & Plan Assessment/Plan (1) Closed trimalleolar fracture of right ankle: QUALIFIERS: Encounter type: initial encounter Qualified Code(s): S82.851A - Displaced trimalleolar fracture of right lower leg, initial encounter for closed fracture (2) ZHUAIR (acute kidney injury): (3) Acute hypotension: (4) Type 2 diabetes mellitus with diabetic polyneuropathy: QUALIFIERS: Diabetes mellitus child psychologist insulin use: with shelter use Qualified Code(s): E11.42 - Type 2 diabetes mellitus with diabetic polyneuropathy; Z79.4 - longterm (current) use of insulin (5) Severe persistent asthma: QUALIFIERS: Asthma complication type: uncomplicated Qualified Code(s): J45.50 - Severe persistent asthma, uncomplicated (6) Stage 2 moderate COPD by GOLD classification: (7) H/O heart artery stent: PLAN: This is a 54 years old female patient presented to the emergency room because of dizziness, fall followed by right ankle pain, found to have hypotension, acute kidney injury and acute traumatic right ankle fracture and she is being admitted for evaluation and treatment. 1. hypotension/near syncopal episode: * Resolved. * Probably commendation of patient's poor performance status and the fact that she is wheelchair-bound but also component of the patient's antihypertensives which have been held. 2. acute traumatic trimalleolar fracture of the right ankle: * Due to mechanical fall versus fracture from just standing on it. Patient stated that her she felt that her ankle snapped and then she went down. * Patient still with significant pain so increase the hydromorphone from 0.5 to 1 mg also expand the oxycodone from 5 from pain level of 4-5 and 10 mg for a pain level of 6-10. * Check a 25-hydroxy vitamin D level. * Podiatry following. Patient NSQIP is medically optimized and does carry higher risk given her medical comorbidities and poor performance status but n ot prohibitive to undergo surgery. Patient has taken apixaban as well clopidogrel. Her last dose of clopidogrel was on the 26. Discussed with podiatry who is aware. * Plan for surgery on 08/05 or 08/06 * Patient still with pain. We will cancel the [place]sworth and start the patient on p.o. hydromorphone. I informed patient that the IV hydromorphone will be used as breakthrough pain. 3. acute kidney injury: * resolved * Prerenal due to dehydration. 4. type 2 diabetes mellitus: * fair control * ADA diet, Accu-Cheks, insulin sliding scale, continue home dose of insulin 6. CAD status post stents: * last PCI was around 2007 * hold clopidogrel for surgery * continue metoprolol 7. COPD/severe asthma: * Stable, * Plan for DuoNeb every 6 hours, albuterol as needed, incentive spirometer. 8. hypertension: * Blood pressure is low but improved, plan as above, hold Norvasc and lisinopril 9. anxiety and depression: * Continue trazodone and Xanax. 10. history of PEs: * Hold Eliquis for now. Likely resume after surgery * Currently on enoxaparin 11. DVT prophylaxis: anticoagulated Visit Charges Inpatient E&M: 62341 Subs Hosp L2
[2020-08-02] MEDS: Acetaminophen 325 MG Tablet 650 MG PO ×2 (16:42→23:55)
[2020-08-02 17:05] LABS: Bedside Glucose 100 mg/dL (70-110)
[2020-08-02] MEDS: Mag Hydrox/Al Hydrox/Simeth 30 ML UDC 15 ML PO (18:16)
--- NOTE | 2020-08-02 20:23 | CPS ---
pt refused to wear hospital bipap-removed from room-order completed
[2020-08-02] MEDS: Atorvastatin Calcium 80 MG Tablet PO (21:46)
[2020-08-02] MEDS: traZODone 100 MG Tablet 200 MG PO (21:46)
[2020-08-02] MEDS: Montelukast 10 MG Tablet PO (21:46)
[2020-08-02] MEDS: RisperiDONE 2 MG Tablet 4 MG PO (21:46)
[2020-08-02 21:56] LABS: Bedside Glucose 136 mg/dL (70-110)
[2020-08-03] VITALS (8 sets, daily range): BP systolic 121–151; BP diastolic 63–74; PULSE 66–80; RESP 16–18; TEMP 36.6–37.2; O2SAT 91–99
[2020-08-03] MEDS: HYDROmorphone 2 MG TABLET PO ×6 (03:27→22:22)
[2020-08-03] MEDS: tiZANidine HCl 2 MG Tablet 6 MG PO ×2 (03:46→15:39)
[2020-08-03] MEDS: Dicyclomine 10 MG Capsule 20 MG PO ×3 (06:25→15:42)
[2020-08-03] MEDS: Sucralfate 1 GM Tablet PO ×4 (06:26→21:44)
[2020-08-03] MEDS: Pregabalin 75 MG Capsule PO ×3 (06:26→21:45)
[2020-08-03] MEDS: Ipratropium/Albuterol Sulfate 3 ML AMPUL.NEB INHALATION ×2 (07:27→19:15)
[2020-08-03] MEDS: Insulin Lispro 100 UNIT/ML INSULN.PEN SC ×4 (08:30→17:39)
[2020-08-03] MEDS: busPIRone 15 MG TABLET 30 MG PO ×2 (08:43→21:45)
[2020-08-03] MEDS: Famotidine 20 MG Tablet PO ×2 (08:44→21:45)
[2020-08-03] MEDS: Mirabegron 25 MG TAB.ER.24H PO (08:44)
[2020-08-03] MEDS: Enoxaparin 100 MG/ML Syringe SC ×2 (08:44→21:51)
[2020-08-03] MEDS: Metoprolol(XL)Succ 50 MG Tablet PO (08:44)
[2020-08-03] MEDS: Polyethylene Glycol 3350 17 GM PACKET PO ×2 (08:45→21:49)
[2020-08-03 09:00] LABS: Bedside Glucose 100 mg/dL (70-110)
[2020-08-03 12:50] LABS: Bedside Glucose 134 mg/dL (70-110)
[2020-08-03] MEDS: Menthol/Lanolin/Calamine/Znox 113 GM Tube 1 APPLIC TOPICAL ×2 (13:01→21:46)
[2020-08-03] MEDS: HYDROmorphone 1 MG/ML Syringe IV ×2 (13:01→18:50)
--- NOTE | 2020-08-03 15:00 | PN.HOSP_ITS ---
Subjective Subjective Patient right lower leg is on Robbi wrap bandage. Complains of pain over ankle. Seen by folder seamer automatic Dr. Roxane Del Angel. Patient Plavix on hold. Objective Data Objective Data Vital Signs: Vital Signs Temp Pulse Resp BP Pulse Ox 98.4 F 68 16 123/64 H 98 08/03/20 09:20 08/03/20 09:20 08/03/20 09:20 08/03/20 09:20 08/03/20 09:20 Oxygen Flow Rate (L/min) 3 Oxygen Delivery Method [2] Nasal Cannula Oxygen Delivery Method [1 ( Nasal Cannula Initial Baseline)] Oxygen Delivery Method Room Air Weight: 235 lb 14.314 oz Body Mass Index (BMI) 41.8 Intake & Output: Intake and Output for Last 24 Hours 08/01/20 08/02/20 08/03/20 23:59 23:59 23:59 Intake Total 640 / 940 1420 / 2020 1300 / 1300 Output Total 1950 / 2850 4450 / 4700 2600 / 2600 Balance -1310 / -1910 -3030 / -2680 -1300 / -1300 Lab / Micro Data Result Diagrams: 08/01/20 07:19 08/01/20 07:19 Labs: Laboratory Results - last 24 hr 08/02/20 08/02/20 08/03/20 16:53 21:40 08:28 POC Glucose 100 136 H 100 08/03/20 12:43 POC Glucose 134 H Physical Exam Narrative General: Alert, Oriented x3, Cooperative HEENT: Atraumatic, PERRLA, EOMI, Normocephalic Oral: No Gingival or Mucosal Lesions/ Ulcerations Neck: Supple, No JVD, Negative Carotid Bruits Lungs: Air entry diminished in bilateral lung bases. No crepitation/rhonchi Cardiovascular: Regular rate, Regular Rhythm, Normal S1, Normal S2, No murmurs Abdomen: Bowel Sounds Present, Soft, Non Tender, Non-Distended : No renal angle tenderness. No suprapubic tenderness. Extremities: Right lower leg on Robbi wrap bandage. Left ankle has surgical scar. Capillary Refill Less than 3 Seconds Skin: Dry and mildly atrophic. No ecchymosis/erythema. Musculoskeletal: Tenderness over right ankle. ROM restricted. Neurological: Cranial nerves II-XII grossly intact, Deep Tendon Reflexes 2+/4 and Symmetrical, Neuro grossly intact Psych/Mental Status: Normal Affect, Appropriate. Assessment & Plan Assessment/Plan (1) Closed trimalleolar fracture of right ankle: QUALIFIERS: Encounter type: initial encounter Qualified Code(s): S82.851A - Displaced trimalleolar fracture of right lower leg, initial encounter for closed fracture (2) Type 2 diabetes mellitus with diabetic polyneuropathy: QUALIFIERS: Diabetes mellitus dedicated intermodal truck driver insulin use: with dedicated intermodal truck driver use Qualified Code(s): E11.42 - Type 2 diabetes mellitus with diabetic polyneuropathy; Z79.4 - terminal make up operator (current) use of insulin PLAN: ?This is a 54 years old female patient presented to the emergency room because of dizziness, fall followed by right ankle pain, found to have hypotension, acute kidney injury and acute traumatic right ankle fracture and is being admitted to monitored bed. 1. hypotension/near syncopal episode: Hypotension and near syncope has resolved. Blood pressure and heart rate in normal range. 2. acute traumatic trimalleolar fracture of the right ankle,Due to mechanical fall: This is being followed by folder seamer automatic. On pain control. Patient has high risk as per NSQIP due to poor performance status but not surgically prohibitive and also medically optimized. Clopidogrel on hold, last dose was on 26. Surgery planned on 08/05 or 08/06. 3. acute kidney injury, prerenal due to dehydration: Resolved 4.? type 2 diabetes mellitus: Was controlled. * ADA diet, Accu-Cheks, insulin sliding scale, continue home dose of insulin 6.? CAD status post stents: Patient has history of multiple stents, last PCI was in 2007. Continue metoprolol and hold. * last PCI was around 2007 * hold clopidogrel for surgery * continue metoprolol 7.? COPD/severe asthma: * Stable, * Plan for DuoNeb every 6 hours, albuterol as needed, incentive spirometer. 8.? hypertension: * Blood pressure is low but improved, plan as above, hold Norvasc and lisinopril 9.? anxiety and depression: * Continue trazodone and Xanax. 10. history of PEs: * Hold Eliquis for now. Likely resume after surgery * Currently on enoxaparin 11.? DVT prophylaxis: anticoagulated Visit Charges Inpatient E&M: 97548 Subs Hosp L2
[2020-08-03] MEDS: Mag Hydrox/Al Hydrox/Simeth 30 ML UDC 15 ML PO ×2 (15:39→19:41)
[2020-08-03] MEDS: Albuterol 2.5 MG/3 ML VIAL.NEB. INHALATION (15:56)
[2020-08-03 17:51] LABS: Bedside Glucose 154 mg/dL (70-110)
[2020-08-03] MEDS: 0.9% Saline Lock 10 ML Syringe IV ×2 (18:51→21:28)
[2020-08-03 21:40] LABS: Bedside Glucose 104 mg/dL (70-110)
[2020-08-03] MEDS: traZODone 100 MG Tablet 200 MG PO (21:44)
[2020-08-03] MEDS: Atorvastatin Calcium 80 MG Tablet PO (21:45)
[2020-08-03] MEDS: Montelukast 10 MG Tablet PO (21:45)
[2020-08-03] MEDS: RisperiDONE 2 MG Tablet 4 MG PO (21:45)
[2020-08-04] VITALS (8 sets, daily range): BP systolic 129–141; BP diastolic 60–74; PULSE 68–90; RESP 16–18; TEMP 36.6–37.1; O2SAT 86–94
[2020-08-04] MEDS: HYDROmorphone 2 MG TABLET PO ×4 (03:56→21:23)
[2020-08-04 05:11] LABS: Absolute Lymphocyte Count 1.46 X10^3/uL (0.83-4.51); Absolute Neutrophil Count 8.2 X10^3/uL (2.0-7.7); Basophil# 0.09 X10^3/uL; Basophil% 0.8 % (0-1); Eosinophil# 0.32 X10^3/uL; Eosinophils% 2.8 % (0-5); Hematocrit 41.6 % (37-47); Hemoglobin 13.9 g/dL (12.0-15.0); Lymphocyte # 1.46 X10^3/ul (0.83-4.51); Mean Corp Hgb Conc 33.4 g/dL (32-36); Mean Corpuscular Hgb 31.4 pg (27.0-32.0); Mean Corpuscular Volume 93.9 fL (81-99); Mean Platelet Vol. 9.7 fl (6.2-12.0); Monocyte% 9.8 % (0-10); NRBC Flagged by Analyzer 0 % (0-5); Neutrophil # 8.24 X10^3/uL (2.7-7.7); Neutrophil % 73.2 % (47-70); Platelet Count 263 K/mm3 (150-450); RBC Distribution Width CV 13.1 % (11.6-14.6); Red Blood Count 4.43 M/mm3 (4.2-5.4); White Blood Count 11.3 K/mm3 (4.4-11.0)
[2020-08-04 05:35] LABS: AST(SGOT) 66 U/L (15-37); Alanine Aminotransfer ALT/SGPT 67 U/L (13-56); Albumin, Serum 2.8 g/dL (3.2-5.0); Alkaline Phosphatase 184 U/L (45-117); Anion Gap 5 (5-15); BUN 7 mg/dL (7-18); BUN/Creat Ratio 11.4 RATIO (10-20); Bilirubin, Direct 0.16 mg/dL (0.00-0.30); Calcium,Total 10.4 mg/dL (8.5-10.1); Chloride 98 mmol/L (98-107); Creatinine, Serum 0.61 mg/dL (0.55-1.02); EST Glomerular Filtration Rate 108 mL/min (>60); Est Glom Filt Rate - Afr Amer 130 mL/min (>60); Estimated Creatinine Clearance 87.21 ml/min; Globulin 4.1 g/dL (2.2-4.2); Glucose 117 mg/dL (74-106); Potassium 4.2 mmol/L (3.5-5.1); Protein, Total 6.9 g/dL (6.4-8.2); Sodium Level 135 mmol/L (136-145)
[2020-08-04] MEDS: Menthol/Lanolin/Calamine/Znox 113 GM Tube 1 APPLIC TOPICAL ×2 (06:21→13:02)
[2020-08-04] MEDS: Dicyclomine 10 MG Capsule 20 MG PO ×3 (06:24→15:44)
[2020-08-04] MEDS: Pregabalin 75 MG Capsule PO ×3 (06:24→21:30)
[2020-08-04] MEDS: Sucralfate 1 GM Tablet PO ×4 (06:24→21:23)
[2020-08-04] MEDS: Ipratropium/Albuterol Sulfate 3 ML AMPUL.NEB INHALATION ×2 (06:53→13:24)
--- NOTE | 2020-08-04 07:51 | PN_ITS ---
Subjective Subjective Patient seen resting comfortably bedside. Patient relates not being able to sleep well due to pain to her right ankle. She relates that the calf pain is improved. She relates her pain is moderately well controlled with pain medication. Patient has no new pedal complaints. Objective Data Objective Data Vital Signs: Vital Signs Temp Pulse Resp BP Pulse Ox 98.3 F 76 16 121/63 H 99 08/03/20 03:20 08/03/20 03:20 08/03/20 03:20 08/03/20 03:20 08/03/20 03:20 Oxygen Flow Rate (L/min) 3 Oxygen Delivery Method [2] Nasal Cannula Oxygen Delivery Method [1 ( Nasal Cannula Initial Baseline)] Oxygen Delivery Method Nasal Cannula Weight: 107 kg Body Mass Index (BMI) 41.8 Intake & Output: Intake and Output for Last 24 Hours 08/01/20 08/02/20 08/03/20 23:59 23:59 23:59 Intake Total 640 / 940 1420 / 2020 1300 / 1300 Output Total 1950 / 2850 4450 / 4700 1700 / 1700 Balance -1310 / -1910 -3030 / -2680 -400 / -400 Lab / Micro Data Result Diagrams: 08/01/20 07:19 08/01/20 07:19 Labs: Laboratory Results - last 24 hr 08/02/20 08/02/20 08/02/20 11:06 16:53 21:40 POC Glucose 141 H 100 136 H Physical Exam Const alert and no apparent distress General Appearance: cooperative and comfortable Resp Effort and Inspection: able to speak in complete sentences Extremity normal capillary refill and no calf tenderness Extremity Narrative: Posterior splint to right lower extremity clean dry and intact. Sensation is intact to light touch to her toes. Toes are of normal color with normal capillary refill time and normal temperature. General Extremity: edema bilateral lower extremity and other findings Other Details: Capillary refill time less than 3 seconds noted to digits ; Negative for clubbing or cyanosis Skin General Skin Exam: atrophy and dry skin; Negative for ecchymosis, erythema, eschar, pallor or dermatitis Rashes: no rashes Neuro Sensory Exam: extremities light-touch: decreased Psych Appearance: appropriate Attitude: calm Assessment & Plan Assessment/Plan (1) Closed trimalleolar fracture of right ankle: QUALIFIERS: Encounter type: initial encounter Qualified Code(s): S82.851A - Displaced trimalleolar fracture of right lower leg, initial encounter for closed fracture (2) Diabetic polyneuropathy: QUALIFIERS: Diabetes mellitus type: type 2 Qualified Code(s): E11.42 - Type 2 diabetes mellitus with diabetic polyneuropathy (3) Type 2 diabetes mellitus: QUALIFIERS: Diabetes mellitus complication status: with neurologic complications Diabetes mellitus complication detail: with polyneuropathy Diabetes mellitus adjunct faculty for medical terminology insulin use: with nursing home use Qualified Code(s): E11.42 - Type 2 diabetes mellitus with diabetic polyneuropathy; Z79.4 - terminal gauger (current) use of insulin (4) Morbid obesity: (5) Vitamin D deficiency: (6) Tobacco abuse: (7) Ankle pain, right: QUALIFIERS: Chronicity: acute Qualified Code(s): M25.571 - Pain in right ankle and joints of right foot PLAN: Patient seen and examined bedside appearing comfortable without obvious signs of distress Patient noted to have closed right ankle trimalleolar fracture which is currently in a posterior splint Patient has history of poor wound healing. Patient broke the left ankle back in November [address] Mitchell of which she has had problems healing both the bone and the skin. She was just discharged from the wound care center for delayed incision healing this week. Patient has significant risk factors for delayed healing including smoking about 2 packs a day of cigarettes, hemoglobin A1c of 10.2 on 06/01/2020, history of vitamin D deficiency, morbid obesity along with her history of delayed healing to her other ankle and incision healing complications. Patient noted to have vitamin D count of 34.6 on 07/31/2020. Is noted this is on the low end of normal. This may still impact her wound healing ability. Patient will need to undergo surgery in order to fix her right ankle fracture. It was noted that patient is taking Plavix in addition to Eliquis. We will need to wait 5 to 7 days for the Plavix to clear her system prior to going to surgery. This was communicated with the patient as she is not noted to have been on Plavix just the Eliquis according to her med rec list upon admission. Patient understands is agreeable to treatment course. Discussed with the patient all risk associated with undergoing surgery as regards to COVID-19 exposure. Discussed all risks, benefits, alternatives, and complications including but not limited to infection, delayed healing, nonhealing, and/or need for further surgery with the patient. No guarantees were given or implied. Patient agreed to proceed with the procedure. All questions answered. Right ankle x-rays were reviewed and discussed with the patient in detail. CT was also obtained and reviewed with patient demonstrating trimalleolar fracture with small intra-articular fragment in the tibiotalar articulation. Continue pain management. All questions answered. Tentative current plan is for surgery either Monday or Monday pending OR availability. Given the holiday week and will not be able to assess or availability until Monday. Patient is aware of this. Will place n.p.o. for Monday just in case and adjust if needed. Please contact if any questions or concerns. Roxane Del Angel DPM [facility] [phone] This note was generated with [employer] dictation software. It may contain incorrect words, spelling, and punctuation that were not noted in checking the note before signing.
[2020-08-04 08:32] LABS: Hemoglobin A1c 8.1 % (3.8-5.6)
[2020-08-04] MEDS: tiZANidine HCl 2 MG Tablet 6 MG PO ×2 (09:14→16:47)
[2020-08-04] MEDS: Insulin Lispro 100 UNIT/ML INSULN.PEN SC ×6 (09:26→21:37)
[2020-08-04] MEDS: Famotidine 20 MG Tablet PO ×2 (09:34→21:26)
[2020-08-04] MEDS: Mirabegron 25 MG TAB.ER.24H PO (09:34)
[2020-08-04] MEDS: busPIRone 15 MG TABLET 30 MG PO ×2 (09:34→21:23)
[2020-08-04] MEDS: Polyethylene Glycol 3350 17 GM PACKET PO ×2 (09:36→21:23)
[2020-08-04] MEDS: Enoxaparin 100 MG/ML Syringe SC ×2 (09:36→21:24)
[2020-08-04] MEDS: Metoprolol(XL)Succ 50 MG Tablet PO (09:40)
--- NOTE | 2020-08-04 10:11 | CASEMGMT ---
As per physician, pt is not having surgery until Monday. SW notified Bianca with [facility], will send updates once pt has had surgery and therapy. SUSSY East
[2020-08-04] MEDS: HYDROmorphone 1 MG/ML Syringe IV ×3 (11:03→19:52)
[2020-08-04] MEDS: 0.9% Saline Lock 10 ML Syringe IV ×4 (11:04→21:39)
[2020-08-04 11:39] LABS: Bedside Glucose 138 mg/dL (70-110)
[2020-08-04 13:11] LABS: Bedside Glucose 174 mg/dL (70-110)
[2020-08-04] MEDS: Mag Hydrox/Al Hydrox/Simeth 30 ML UDC 15 ML PO ×2 (16:02→21:30)
[2020-08-04 16:06] LABS: Bedside Glucose 194 mg/dL (70-110)
--- NOTE | 2020-08-04 16:29 | PN.HOSP_ITS ---
Subjective Subjective Still has pain around right leg and ankle. Plan for surgery tomorrow a.m. Objective Data Objective Data Vital Signs: Vital Signs Temp Pulse Resp BP Pulse Ox 98.4 F 74 16 141/72 H 94 08/04/20 09:30 08/04/20 13:24 08/04/20 13:24 08/04/20 09:30 08/04/20 09:30 Oxygen Flow Rate (L/min) 3 Oxygen Delivery Method [2] Nasal Cannula Oxygen Delivery Method [1 ( Nasal Cannula Initial Baseline)] Oxygen Delivery Method Nasal Cannula Weight: 234 lb 15.992 oz Body Mass Index (BMI) 41.8 Intake & Output: Intake and Output for Last 24 Hours 08/02/20 08/03/20 08/04/20 23:59 23:59 23:59 Intake Total 1420 / 2020 2300 / 2300 Output Total 4450 / 4700 4600 / 4600 1800 / 1800 Balance -3030 / -2680 -2300 / -2300 -1800 / -1800 Lab / Micro Data Result Diagrams: 08/04/20 05:00 08/04/20 05:00 Labs: Laboratory Results - last 24 hr 08/03/20 08/03/20 08/04/20 17:36 21:33 05:00 WBC 11.3 H RBC 4.43 Hgb 13.9 Hct 41.6 MCV 93.9 MCH 31.4 MCHC 33.4 D RDW Std Deviation 45.0 H RDW Coeff of Kaycee 13.1 Plt Count 263 MPV 9.7 Immature Gran % (Auto) 0.400 Neut % (Auto) 73.2 H Lymph % (Auto) 13.0 L Lanier % (Auto) 9.8 Eos % (Auto) 2.8 Baso % (Auto) 0.8 Absolute Neuts (auto) 8.2 H Absolute Lymphs (auto) 1.46 Nucleated RBC % 0 Sodium Potassium Chloride Carbon Dioxide Anion Gap BUN Creatinine Estim Creat Clear Calc Est GFR (MDRD) Af Amer Est GFR (MDRD) Non-Af BUN/Creatinine Ratio Glucose Hemoglobin A1c Calcium Total Bilirubin Direct Bilirubin AST ALT Alkaline Phosphatase Total Protein Albumin Globulin POC Glucose 154 H 104 08/04/20 08/04/20 08/04/20 05:00 05:00 09:24 WBC RBC Hgb Hct MCV MCH MCHC RDW Std Deviation RDW Coeff of Kaycee Plt Count MPV Immature Gran % (Auto) Neut % (Auto) Lymph % (Auto) Lanier % (Auto) Eos % (Auto) Baso % (Auto) Absolute Neuts (auto) Absolute Lymphs (auto) Nucleated RBC % Sodium 135 L Potassium 4.2 Chloride 98 Carbon Dioxide 32.0 Anion Gap 5 BUN 7 Creatinine 0.61 Estim Creat Clear Calc 87.21 Est GFR (MDRD) Af Amer 130 Est GFR (MDRD) Non-Af 108 BUN/Creatinine Ratio 11.4 Glucose 117 H Hemoglobin A1c 8.1 H Calcium 10.4 H Total Bilirubin 0.50 Direct Bilirubin 0.16 AST 66 H ALT 67 H Alkaline Phosphatase 184 H Total Protein 6.9 Albumin 2.8 L Globulin 4.1 POC Glucose 138 H 08/04/20 08/04/20 12:59 15:57 WBC RBC Hgb Hct MCV MCH MCHC RDW Std Deviation RDW Coeff of Kaycee Plt Count MPV Immature Gran % (Auto) Neut % (Auto) Lymph % (Auto) Lanier % (Auto) Eos % (Auto) Baso % (Auto) Absolute Neuts (auto) Absolute Lymphs (auto) Nucleated RBC % Sodium Potassium Chloride Carbon Dioxide Anion Gap BUN Creatinine Estim Creat Clear Calc Est GFR (MDRD) Af Amer Est GFR (MDRD) Non-Af BUN/Creatinine Ratio Glucose Hemoglobin A1c Calcium Total Bilirubin Direct Bilirubin AST ALT Alkaline Phosphatase Total Protein Albumin Globulin POC Glucose 174 H 194 H Physical Exam Narrative General: Alert, Oriented x3, Cooperative HEENT: Atraumatic, PERRLA, EOMI, Normocephalic Oral: No Gingival or Mucosal Lesions/ Ulcerations Neck: Supple, No JVD, Negative Carotid Bruits Lungs: Air entry diminished in bilateral lung bases. No crepitation/rhonchi Cardiovascular: Regular rate, Regular Rhythm, Normal S1, Normal S2, No murmurs Abdomen: Bowel Sounds Present, Soft, Non Tender, Non-Distended : No renal angle tenderness. No suprapubic tenderness. Extremities: Tenderness around right ankle. Right lower leg on Robbi wrap bandage. Left ankle has surgical scar. Skin: Dry and mildly atrophic. No ecchymosis/erythema. Musculoskeletal: Tenderness over right ankle. ROM restricted. Neurological: Cranial nerves II-XII grossly intact, Deep Tendon Reflexes 2+/4 and Symmetrical, Neuro grossly intact Psych/Mental Status: Normal Affect, Appropriate. Assessment & Plan Assessment/Plan (1) Closed trimalleolar fracture of right ankle: QUALIFIERS: Encounter type: initial encounter Qualified Code(s): S82.851A - Displaced trimalleolar fracture of right lower leg, initial encounter for closed fracture (2) Type 2 diabetes mellitus with diabetic polyneuropathy: QUALIFIERS: Diabetes mellitus assisted insulin use: with assisted use Qualified Code(s): E11.42 - Type 2 diabetes mellitus with diabetic polyneuropathy; Z79.4 - MCFP (current) use of insulin PLAN: ?This is a 54 years old female patient presented to the emergency room because of dizziness, fall followed by right ankle pain, found to have hypotension, acute kidney injury and acute traumatic right ankle fracture and is being admitted to monitored bed. 1. hypotension/near syncopal episode: Hypotension and near syncope has resolved. Blood pressure and heart rate in normal range. Hemodynamically stable. 2. acute traumatic trimalleolar fracture of the right ankle,Due to mechanical fall: This is being followed by cinder snapper. On pain control. Patient has high risk as per NSQIP due to poor performance status but not surgically prohibitive and also medically optimized. Clopidogrel on hold, last dose was on 26. Surgery tomorrow a.m. 3. acute kidney injury, prerenal due to dehydration: Resolved 4.? type 2 diabetes mellitus: Was controlled. * ADA diet, Accu-Cheks, insulin sliding scale, continue home dose of insulin * Surgery tomorrow a.m. glucose is controlled. A1c 8.1%. 6.? CAD status post stents: Patient has history of multiple stents, last PCI was in 2007. Continue metoprolol and hold. * last PCI was around 2007 * hold clopidogrel for surgery * continue metoprolol 7.? COPD/severe asthma: * Stable, * Plan for DuoNeb every 6 hours, albuterol as needed, incentive spirometer. 8.? hypertension: * Blood pressure is normal. Hold lisinopril. Resume amlodipine lower dose. 9.? anxiety and depression: * Continue trazodone and Xanax. 10. history of PEs: * Hold Eliquis for now. Likely resume after surgery * Currently on enoxaparin 11.? DVT prophylaxis: anticoagulated Visit Charges Inpatient E&M: 57797 Subs Hosp L2
[2020-08-04] MEDS: amLODIPine 2.5 MG Tablet PO (16:47)
[2020-08-04] MEDS: traZODone 100 MG Tablet 200 MG PO (21:24)
[2020-08-04] MEDS: Atorvastatin Calcium 80 MG Tablet PO (21:25)
[2020-08-04] MEDS: Montelukast 10 MG Tablet PO (21:26)
[2020-08-04] MEDS: RisperiDONE 2 MG Tablet 4 MG PO (21:31)
[2020-08-04 22:26] LABS: Bedside Glucose 192 mg/dL (70-110)
[2020-08-05] VITALS (20 sets, daily range): BP systolic 92–158; BP diastolic 58–84; PULSE 76–122; RESP 14–20; TEMP 36.4–37.3; O2SAT 90–96; BMI 41.6
[2020-08-05] MEDS: tiZANidine HCl 2 MG Tablet 6 MG PO ×2 (01:49→15:09)
[2020-08-05] MEDS: HYDROmorphone 2 MG TABLET PO ×3 (01:49→20:52)
[2020-08-05] MEDS: Ondansetron 4 MG/2 ML Vial IV (04:48)
[2020-08-05] MEDS: HYDROmorphone 1 MG/ML Syringe IV ×3 (04:48→22:20)
[2020-08-05] MEDS: 0.9% Saline Lock 10 ML Syringe IV ×2 (04:50→14:58)
[2020-08-05 05:06] LABS: Bedside Glucose 149 mg/dL (70-110)
--- NOTE | 2020-08-05 06:29 | NURSING ---
pt to surgery at this time
[2020-08-05] MEDS: Lactated Ringers 1,000 ML 100 ML IV ×2 (07:00→13:46)
--- NOTE | 2020-08-05 07:30 | RAD_ITS ---
STUDY: X-RAY - RIGHT ANKLE REASON FOR EXAM: ORIF of right trimalleolar fracture. TECHNIQUE: 17 intraoperative images of the ankle. COMPARISON: Radiographs 07/30/2020. FINDINGS: There is an orthopedic plate and screws transfixing a distal fibular fracture in anatomical alignment and position. There is an orthopedic screw transfixing a medial malleolar fracture. There is syndesmotic fixation. 285.5 seconds of fluoroscopy time was used. Electronically Signed: Curtis Srivastava MD at 14:52 EDT Tel , Service support , RAD/Ankle min 3 Views
--- NOTE | 2020-08-05 07:49 | OP.PCM_ITS ---
Problems Associated Problem List Diagnoses (1) Closed trimalleolar fracture of right ankle: (2) Type 2 diabetes mellitus: (3) Morbid obesity: (4) Vitamin D deficiency: Report of Operation Date of Procedure: 08/05/20 Pre-Operative Diagnosis: right trimalleoloar ankle fracture Post-Operative Diagnosis: same Surgery/Procedure Performed:: Open reduction internal fixation of right ankle fracture Description of Surgical Findings:: materials:Arthrex locking distal fibula plate, 3.5mm cortical screw, 2.7mm kreulock screws, 3.5mm kreulock screws, 4.0mm cannulated screws, tight ropes hemostasis: thigh tourniquet suture: 2-0, 3-0, 4-0 vicryl, 3-0 nylon Local anesthesia: popliteal and adductor block per anesthesia. Additional 20cc 0.5% bupivicaine saphenous block per podiatry. Surgeon: Roxane Del Angel multiple resaw operator: None (Robbie Santamaria PGY3) Type of Anesthesia: General/Regional Specimen's removed: none Drains: none Estimated Blood Loss (mL): <100cc Description of Procedure: INDICATIONS FOR OPERATION: Patient is a 54-year-old female who presents emergency department after a near syncopal episode. Patient was noted to have low blood pressure and an ZUHAIR. During the fall patient was noted to have fractured her right ankle. This was closed. Patient has a history of fracturing her left ankle which was fixed by Dr. Mitchell in November 2019. It is noted that this left ankle fracture is not completely healed at this point. She has had issues healing the surgical site as well and has been seen in the wound care center for healing of remaining wounds. Patient has significant comorbidities that will impact her wound healing including but not limited to morbid obesity, diabetes, vitamin D deficiency, iron deficiency anemia, history of bariatric surgery, history of PE, history of PAD. Patient was admitted to the the floor after being seen in the emergency room for her hypotension and ZUHAIR. Patient was noted to be on Plavix and Eliquis and it was determined that we would need to wait 5 to 7 days prior to going to surgery to fix her right ankle. Patient remained in the hospital during this time. I recommend patient go to assisted living facility after surgery and hospital visit to facilitate healing. Patient is also a high fall risk and this would be safer for her. Discussed with the patient all risk associated with undergoing surgery as regards to COVID-19 exposure. Discussed all risks, benefits, alternatives, and complications including but not limited to infection, delayed healing, nonhealing, and/or need for further surgery with the patient. No guarantees were given or implied. Patient agreed to proceed with the procedure. Patient understands she is at a high risk for delayed healing or healing complications. All questions answered. DESCRIPTION OF OPERATION: The popliteal block was administered prior to surgery to the operative limb per anesthesia. The patient was brought to the operating room and laid supine on the operating room table. General anesthesia was established. A thigh tourniquet was applied to the operative extremity. All bony prominences were well padded. The operative foot and leg were then prepped and draped in the usual fashion. The limb was exsanguinated and tourniquet inflated to 300 mmHg. Attention was then directed to the lateral aspect of the patient's operative leg where approximately a 8 cm linear incision was made overlying the patient's fibula. The incision was made with a #15 blade and continued down in a layered fashion through skin and subcutaneous layers, superficial and deep fascia and periosteum utilizing a combination of sharp and blunt dissection. Care was taken to retract all vital neurovascular structures. All bleeders were cauterized and ligated as necessary. Full-thickness flaps were raised in the anterior and posterior direction exposing the fibula. The fibula fracture was noted. After using a curette to remove any hematoma and soft tissue structures from the fracture site with curette and pick ups, the fracture was reduced with bone clamps. At this point, clinically, the fracture was reduced and compressed. However, intraoperative fluoroscopy was also used to visualize the fibula and excellent alignment of the fracture site with nondenominational of the length of the fibula and reduction of any angulation or rotation was noted. At this point, appropriately sized lag screw, size noted above, was placed from anterior to posterior across the fracture site perpendicular to the fracture line. This was done utilizing standard AO lag screw technique and the screw was tightened down. Excellent compression was noted at the fracture site and the alignment and length of the fibula was noted to still be in excellent position and verified utilizing the intraoperative fluoroscopy. An arthrex fibular locking plate was then utilized to provide stability to the fracture site. The plate was secured with appropriately sized screws, sizes noted above, and inserted following standard AO technique. All screws were placed from lateral to medial. Two screw holes was left empty for its use in a syndesmosis tightrope. Intraoperative fluoroscopy was used throughout this process and was checked again after all screws and plate was applied. Screws were deemed proper length and plate was well adhered to the fibula with anatomic alignment maintained. Attention was then directed to the medial aspect of the operative ankle where a 4 cm curved incision was made distal to proximal over top of the medial malleolus. The medial malleolus avulsion fracture was visualized and any tiny bone fragments, soft tissue impingements and hematoma were removed with pick ups and curette. There was a noted butterfly avulsion fracture noted to the medial aspect in addition to the main fracture line. A bone clamp was utilized in order to reduce the fracture. This reduction was confirmed under C arm and was noted to be in good alignment. One K wire was then placed distal to proximal across the fragment. It was determined that the lost bone due to the butterfly fragment would no allow enough space to place 2 screws across the medial malleolus fracture. A janett was utilized within the medial ankle gutter to prevent rotation during placement of the single screw. No rotation was noted after placement of the screw. Placement care was confirmed under C arm. Appropriately sized screw, size noted above, were then placed over top of the K wire to hold the fragment in place. This was done using standard AO technique. K wire was then removed and maintenance of fracture reduction was confirmed under C-arm as well as alignment and placement of screw. The butterfly bone fragment was maintained with its soft tissue attachments. This will be fitted back into place and held by soft tissue as it is not large enough to hold permanent fixation and given patient's history will use as a kind of bone graft to help fill the medial void. Attention was then directed to the posterior malleolus. Under c arm it was noted that lateral and medial malleolus fracture reduction had reduced slightly more when compared to pre operative studies. Pre operative XR and CT also demonstrated less than 25% articular surface involvement. It is also noted that the pre operative CT demonstrated 3mm of displacement of the posterior malleolus fracture with multiple fragments. After lateral and medial malleolus fixation it appeared that the posterior fragment had reduced more compared to preoperatively. Given these findings and patient history of significant wound healing it was determined that fixation of the posterior malleolus fracture was not necessary nor in patient's interest for further dissection for possible plate placement. Attention was then directed laterally to the empty fibular plate holes at the level of the syndesmosis. The ankle was stressed under fluoroscopy and was noted to be unstable and that the patient would benefit from fixation across the syndesmosis. 2 cortical screws were then placed across the syndesmosis with 4 cortices crossed. Upon tightening of the screws it was noted that the fibular fracture displaced and a lag screw tore through the bone. The syndesmosis screws were then removed. The lag screw was removed as well. The proximal aspect of the fibular plate from the fracture screws were removed. The fibula fracture was refixated with bone clamps and appropriate size screws were then placed again following standard AO technique. It was determined that due to patient bone poor bone quality buttress style fixation technique would best be implemented. Alignment was confirmed under fluoroscopy guidance. The screws were noted to be of proper length and size with proper placement. Fibula remained to length. Reduction of the fibular fracture fracture was obtained. Given the poor bone quality is determined that the rigid fixation of the screws was too much for the patient's of bone to handle. It was determined that syndesmosis fixation was still required though. Two arthrex knotless tight ropes were then inserted laterally to medially through the fibular plate parallel and proximal to the ankle joint at approximately 15 degree divergent angle. Proper button bone approximation and alignment was confirmed on c arm. The tight rope was secured against bone medially and was tightened laterally before excess suture was cut. Multiple final views were then obtained via fluoroscopy of the ankle joint to assess proper alignment and fixation of the ankle fracture. There is noted that everything was in optimal positioning. An arthrex territory sales representative was present for placement and insertion of the plate, screws and tight rope. All incision sites were then flushed with copious amounts of normal sterile saline. The incisions were then closed in layers using 2-0, 3-0, 4-0 vicryl and 3-0 nylon sutures. The lateral incision had adaquate coverage of hardware was achieved in simple suture fashion before continuing to more superficial layers with running suture fashion in the subcuticular layer and simple and horizontal fashion for skin. A sterile compressive dressing was applied with Betadine soaked Adaptic, 4 x 4's, ABDs, Kerlix, cast padding and then a posterior splint applied and secured down with an Robbi wrap with particular attention directed to padding heel and all bony prominences. The tourniquet was deflated at the 2-hour sandra. Prompt brisk hyperemic response was noted to all digits of the patient's operative foot. The patient tolerated the procedure well. Patient was transferred to PACU with vital signs stable and vital signs intact. Patient will be transferred back to the floor once she is stable. Podiatry will continue to follow on the floor. Patient will follow up with Dr. Del Angel upon discharge. I recommend the patient goes to a SNF at discharge. Patient was discharged with the following written and oral post operative instructions 1. Patient to keep dressing clean, dry, and intact 2. Patient to ice and elevate operative foot 3. Pt to take prescribed medication as instructed 4. Patient to remain NWB to operative foot in posterior splint 5. Patient to follow up in one week with Dr. Del Angel 6. Patient to watch for increase in redness, swelling, drainage, signs of infection or DVT and instructed to present to doctor's office or go to ED if these symptoms present. Complications none Admit VTE Documentation VTE Present on Admission: Yes VTE Mechan Device Prophylaxis: SCD's VTE Pharm Prophylaxis ordered?: Yes
[2020-08-05] MEDS: Bupivacaine Mpf 0.5% 30 ML VIAL (11:44)
[2020-08-05] MEDS: Albuterol 2.5 MG/3 ML VIAL.NEB. INHALATION (12:15)
--- NOTE | 2020-08-05 12:17 | RAD_ITS ---
STUDY: X-RAY - RIGHT ANKLE REASON FOR EXAM: Postop ORIF right ankle trimalleolar fracture. TECHNIQUE: 3 view(s) of the ankle. COMPARISON: Radiographs 07/30/2020. FINDINGS: There is an orthopedic plate and screws transfixing a distal fibular fracture in anatomical alignment and position. There is an orthopedic screw transfixing a medial malleolar fracture. There is syndesmotic fixation. Normal visualized talus and calcaneus. The visualized subtalar, talonavicular, calcaneocuboid and tarsal articulations are normal. There is an overlying cast. RAD/Ankle min 3 Views IMPRESSION: ORIF of right ankle fracture. Electronically Signed: Curtis Srivastava MD at 13:40 EDT Tel , Service support ,
[2020-08-05 12:31] LABS: Bedside Glucose 213 mg/dL (70-110)
[2020-08-05] MEDS: Dicyclomine 10 MG Capsule 20 MG PO (15:07)
[2020-08-05] MEDS: Famotidine 20 MG Tablet PO ×2 (15:07→22:08)
[2020-08-05] MEDS: Metoprolol(XL)Succ 50 MG Tablet PO (15:07)
[2020-08-05] MEDS: amLODIPine 2.5 MG Tablet PO (15:07)
[2020-08-05] MEDS: Mirabegron 25 MG TAB.ER.24H PO (15:08)
[2020-08-05] MEDS: Sucralfate 1 GM Tablet PO ×2 (15:08→22:11)
[2020-08-05] MEDS: Menthol/Lanolin/Calamine/Znox 113 GM Tube 1 APPLIC TOPICAL ×2 (15:09→20:55)
[2020-08-05] MEDS: Pregabalin 75 MG Capsule PO ×2 (15:12→22:11)
[2020-08-05] MEDS: Insulin Lispro 100 UNIT/ML INSULN.PEN SC ×2 (15:23→15:24)
--- NOTE | 2020-08-05 17:03 | PN.HOSP_ITS ---
Subjective Subjective Patient had surgery done today. Seen after surgery. Currently drowsy and lethargic. Complain of mild pain over right ankle region. Objective Data Objective Data Vital Signs: Vital Signs Temp Pulse Resp BP Pulse Ox 98.2 F 110 H 18 114/63 93 08/05/20 14:44 08/05/20 15:07 08/05/20 14:44 08/05/20 14:44 08/05/20 14:44 Oxygen Flow Rate (L/min) 3 Oxygen Delivery Method [2] Nasal Cannula Oxygen Delivery Method [1 ( Nasal Cannula Initial Baseline)] Oxygen Delivery Method Room Air Weight: 234 lb 15.992 oz Body Mass Index (BMI) 41.6 Intake & Output: Intake and Output for Last 24 Hours 08/03/20 08/04/20 08/05/20 23:59 23:59 23:59 Intake Total 2300 / 2300 1606 / 1606 Output Total 4600 / 4600 2800 / 2900 1250 / 1250 Balance -2300 / -2300 -2800 / -2400 356 / 356 Lab / Micro Data Result Diagrams: 08/04/20 05:00 08/04/20 05:00 Labs: Laboratory Results - last 24 hr 08/04/20 08/05/20 08/05/20 21:36 05:00 12:23 POC Glucose 192 H 149 H 213 H Micro: Microbiology 08/04/20 17:00 Nasal Secretion SARS-CoV-2 Antigen (Rapid) - Final Radiography Diagnostic Testing: Radiology Impression Ankle X-Ray 08/05/20 07:30 Ankle X-Ray 08/05/20 12:17 IMPRESSION: ORIF of right ankle fracture. Electronically Signed: Curtis Srivastava MD at 13:40 EDT Tel , Service support , Physical Exam Narrative General: Mild drowsy and lethargic. Poor surgical. HEENT: Atraumatic, PERRLA, EOMI, Normocephalic Oral: No Gingival or Mucosal Lesions/ Ulcerations Neck: Supple, No JVD, Negative Carotid Bruits Lungs: Air entry diminished in bilateral lung bases. No crepitation/rhonchi Cardiovascular: Regular rate, Regular Rhythm, Normal S1, Normal S2, No murmurs Abdomen: Bowel Sounds Present, Soft, Non Tender, Non-Distended : No renal angle tenderness. No suprapubic tenderness. Extremities: Tenderness around right ankle. Right lower leg on Robbi wrap bandage. Surgical dressing is dry. Left ankle has surgical scar. Skin: Dry and mildly atrophic. No ecchymosis/erythema. Musculoskeletal: Tenderness over right ankle. ROM restricted. Neurological: Cranial nerves II-XII grossly intact, Deep Tendon Reflexes 2+/4 and Symmetrical, Neuro grossly intact Psych/Mental Status: Normal Affect, Appropriate. 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 1. hypotension/near syncopal episode: Hypotension and near syncope has resolved. Blood pressure and heart rate in normal range. Hemodynamically stable. Mild sinus tachycardia. Metoprolol succinate dose increased to 75 mg daily. 2. acute traumatic trimalleolar fracture of the right ankle,Due to mechanical fall: This is being followed by education spec. On pain control. Patient has high risk as per NSQIP due to poor performance status but not surgically prohibitive and also medically optimized. Clopidogrel on hold, last dose was on 26. 6/2: Patient had open reduction and external fixation of right ankle fracture. Labs ordered for tomorrow a.m. 3. acute kidney injury, prerenal due to dehydration: Resolved 4.? type 2 diabetes mellitus: Was controlled. * ADA diet, Accu-Cheks, insulin sliding scale, continue home dose of insulin * Surgery tomorrow a.m. glucose is controlled. A1c 8.1%. 6/2: Glucose is in 200s. Lantus and Humalog both insulin uptitrated. 6.? CAD status post stents: Patient has history of multiple stents, last PCI was in 2007. Continue metoprolol and hold. * last PCI was around 2007 * hold clopidogrel for surgery * continue metoprolol 7.? COPD/severe asthma: * Stable, * Plan for DuoNeb every 6 hours, albuterol as needed, incentive spirometer. 8.? hypertension: * Blood pressure is normal. Hold lisinopril. Resume amlodipine lower dose. 9.? anxiety and depression: * Continue trazodone and Xanax. 10. history of PEs: * Hold Eliquis for now. Likely resume after surgery * Currently on enoxaparin 11.? DVT prophylaxis: anticoagulated Visit Charges Inpatient E&M: 26739 Subs Hosp L2
[2020-08-05] MEDS: Insulin Lispro 100 UNIT/ML INSULN.PEN 10 UNIT SC (17:21)
[2020-08-05] MEDS: Metoprolol(XL)Succ 25 MG Tablet PO (17:21)
[2020-08-05 17:25] LABS: Bedside Glucose 203 mg/dL (70-110)
[2020-08-05 17:25] LABS: Bedside Glucose 157 mg/dL (70-110)
[2020-08-05] MEDS: Ipratropium/Albuterol Sulfate 3 ML AMPUL.NEB INHALATION (19:34)
[2020-08-05] MEDS: busPIRone 15 MG TABLET 30 MG PO (22:10)
[2020-08-05] MEDS: Montelukast 10 MG Tablet PO (22:10)
[2020-08-05] MEDS: RisperiDONE 2 MG Tablet 4 MG PO (22:10)
[2020-08-05] MEDS: Enoxaparin 100 MG/ML Syringe SC (22:10)
[2020-08-05] MEDS: Polyethylene Glycol 3350 17 GM PACKET PO (22:11)
[2020-08-05] MEDS: traZODone 100 MG Tablet 200 MG PO (22:19)
[2020-08-05] MEDS: Atorvastatin Calcium 80 MG Tablet PO (22:20)
[2020-08-05 22:25] LABS: Bedside Glucose 125 mg/dL (70-110)
[2020-08-06] VITALS (8 sets, daily range): BP systolic 136–152; BP diastolic 65–72; PULSE 84–92; RESP 16–20; TEMP 36.4–36.9; O2SAT 93–97
[2020-08-06] MEDS: Lactated Ringers 1,000 ML 100 ML IV ×3 (00:08→18:25)
[2020-08-06] MEDS: HYDROmorphone 1 MG/ML Syringe IV ×5 (02:20→18:34)
[2020-08-06] MEDS: HYDROmorphone 2 MG TABLET PO ×5 (05:06→21:00)
[2020-08-06] MEDS: Pregabalin 75 MG Capsule PO ×3 (05:06→20:59)
[2020-08-06] MEDS: Menthol/Lanolin/Calamine/Znox 113 GM Tube 1 APPLIC TOPICAL ×3 (05:07→21:01)
[2020-08-06 05:36] LABS: Absolute Neutrophil Count 11.3 X10^3/uL (2.0-7.7); Basophil# 0.08 X10^3/uL; Basophil% 0.5 % (0-1); Eosinophil# 0.05 X10^3/uL; Eosinophils% 0.3 % (0-5); Hematocrit 39.7 % (37-47); Hemoglobin 12.9 g/dL (12.0-15.0); Lymphocyte % 8.1 % (19-41); Mean Corp Hgb Conc 32.5 g/dL (32-36); Mean Corpuscular Hgb 31.1 pg (27.0-32.0); Mean Corpuscular Volume 95.7 fL (81-99); Mean Platelet Vol. 9.7 fl (6.2-12.0); Monocyte# 2.14 X10^3/uL; Monocyte% 14.4 % (0-10); NRBC Flagged by Analyzer 0 % (0-5); Neutrophil # 11.33 X10^3/uL (2.7-7.7); Neutrophil % 76.4 % (47-70); POSITIVE DIFFERENTIAL YES; Platelet Count 292 K/mm3 (150-450); RBC Distribution Width CV 13.2 % (11.6-14.6); Red Blood Count 4.15 M/mm3 (4.2-5.4); White Blood Count 14.9 K/mm3 (4.4-11.0)
[2020-08-06 05:41] LABS: Differential Indicated SCAN CRITERIA MET
[2020-08-06 05:51] LABS: Anion Gap 6 (5-15); BUN 6 mg/dL (7-18); BUN/Creat Ratio 8.8 RATIO (10-20); Calcium,Total 9.8 mg/dL (8.5-10.1); Chloride 98 mmol/L (98-107); Creatinine, Serum 0.68 mg/dL (0.55-1.02); EST Glomerular Filtration Rate 96 mL/min (>60); Est Glom Filt Rate - Afr Amer 116 mL/min (>60); Estimated Creatinine Clearance 78.24 ml/min; Glucose 131 mg/dL (74-106); Potassium 4.2 mmol/L (3.5-5.1); Sodium Level 132 mmol/L (136-145)
[2020-08-06] MEDS: Dicyclomine 10 MG Capsule 20 MG PO ×3 (06:20→16:42)
[2020-08-06] MEDS: Sucralfate 1 GM Tablet PO ×4 (06:21→21:00)
[2020-08-06] MEDS: Ipratropium/Albuterol Sulfate 3 ML AMPUL.NEB INHALATION ×3 (07:09→19:20)
[2020-08-06] MEDS: busPIRone 15 MG TABLET 30 MG PO ×2 (08:16→21:00)
[2020-08-06] MEDS: Polyethylene Glycol 3350 17 GM PACKET PO ×2 (08:16→20:59)
[2020-08-06] MEDS: Mirabegron 25 MG TAB.ER.24H PO (08:16)
[2020-08-06] MEDS: Famotidine 20 MG Tablet PO ×2 (08:17→21:00)
[2020-08-06] MEDS: Enoxaparin 100 MG/ML Syringe SC ×2 (08:17→20:59)
[2020-08-06] MEDS: amLODIPine 2.5 MG Tablet PO (08:17)
[2020-08-06] MEDS: Insulin Lispro 100 UNIT/ML INSULN.PEN SC ×2 (08:18→21:02)
[2020-08-06] MEDS: Insulin Lispro 100 UNIT/ML INSULN.PEN 10 UNIT SC ×3 (08:18→17:29)
[2020-08-06] MEDS: Metoprolol(XL)Succ 25 MG Tablet 75 MG PO (08:22)
[2020-08-06 08:36] LABS: Bedside Glucose 158 mg/dL (70-110)
[2020-08-06] MEDS: 0.9% Saline Lock 10 ML Syringe IV ×3 (10:30→18:34)
--- NOTE | 2020-08-06 10:39 | PN_ITS ---
Subjective Subjective Patient seen and examined resting comfortably. Patient denies any new pedal complaints. Patient denies any nausea, fever, chills, chest pain, shortness of breath, cough, streaking, purulence, vomiting. Patient relates her pain is an 8 out of 10 at this time. Patient relates the IV pain medications help. Objective Data Objective Data Vital Signs: Vital Signs Temp Pulse Resp BP Pulse Ox 98.4 F 84 16 152/72 H 93 08/06/20 08:30 08/06/20 08:30 08/06/20 08:30 08/06/20 08:30 08/06/20 08:30 Oxygen Flow Rate (L/min) 3 Oxygen Delivery Method [2] Nasal Cannula Oxygen Delivery Method [1 ( Nasal Cannula Initial Baseline)] Oxygen Delivery Method Nasal Cannula Weight: 106.594 kg Body Mass Index (BMI) 41.6 Intake & Output: Intake and Output for Last 24 Hours 08/04/20 08/05/20 08/06/20 23:59 23:59 23:59 Intake Total 3256 / 3256 1480 / 1480 Output Total 2800 / 2900 1250 / 1700 2700 / 2700 Balance -2800 / -2400 2006 / 1556 -1220 / -1220 Lab / Micro Data Result Diagrams: 08/06/20 05:20 08/06/20 05:20 Labs: Laboratory Results - last 24 hr 08/05/20 08/05/20 08/05/20 12:23 15:23 17:17 WBC RBC Hgb Hct MCV MCH MCHC RDW Std Deviation RDW Coeff of Kaycee Plt Count MPV Immature Gran % (Auto) Neut % (Auto) Lymph % (Auto) [place] % (Auto) Eos % (Auto) Baso % (Auto) Absolute Neuts (auto) Absolute Lymphs (auto) Nucleated RBC % Diff Path Review Sodium Potassium Chloride Carbon Dioxide Anion Gap BUN Creatinine Estim Creat Clear Calc Est GFR (MDRD) Af Amer Est GFR (MDRD) Non-Af BUN/Creatinine Ratio Glucose Calcium POC Glucose 213 H 203 H 157 H 08/05/20 08/06/20 08/06/20 22:00 05:20 05:20 WBC 14.9 H RBC 4.15 L Hgb 12.9 Hct 39.7 MCV 95.7 MCH 31.1 MCHC 32.5 RDW Std Deviation 47.0 H RDW Coeff of Kaycee 13.2 Plt Count 292 MPV 9.7 Immature Gran % (Auto) 0.300 Neut % (Auto) 76.4 H Lymph % (Auto) 8.1 L [place] % (Auto) 14.4 H Eos % (Auto) 0.3 Baso % (Auto) 0.5 Absolute Neuts (auto) 11.3 H Absolute Lymphs (auto) 1.20 Nucleated RBC % 0 Diff Path Review May foll Sodium 132 L Potassium 4.2 Chloride 98 Carbon Dioxide 28.0 Anion Gap 6 BUN 6 L Creatinine 0.68 Estim Creat Clear Calc 78.24 Est GFR (MDRD) Af Amer 116 Est GFR (MDRD) Non-Af 96 BUN/Creatinine Ratio 8.8 L Glucose 131 H Calcium 9.8 POC Glucose 125 H 08/06/20 08:09 WBC RBC Hgb Hct MCV MCH MCHC RDW Std Deviation RDW Coeff of Kaycee Plt Count MPV Immature Gran % (Auto) Neut % (Auto) Lymph % (Auto) [place] % (Auto) Eos % (Auto) Baso % (Auto) Absolute Neuts (auto) Absolute Lymphs (auto) Nucleated RBC % Diff Path Review Sodium Potassium Chloride Carbon Dioxide Anion Gap BUN Creatinine Estim Creat Clear Calc Est GFR (MDRD) Af Amer Est GFR (MDRD) Non-Af BUN/Creatinine Ratio Glucose Calcium POC Glucose 158 H Micro: Microbiology 08/04/20 17:00 Nasal Secretion SARS-CoV-2 Antigen (Rapid) - Final Radiography Diagnostic Testing: Radiology Impression Ankle X-Ray 08/05/20 07:30 Ankle X-Ray 08/05/20 12:17 IMPRESSION: ORIF of right ankle fracture. Electronically Signed: Curtis Srivastava MD at 13:40 EDT Tel , Service support , Physical Exam Const alert and no apparent distress General Appearance: cooperative and comfortable Resp Effort and Inspection: able to speak in complete sentences Extremity normal capillary refill and no calf tenderness Extremity Narrative: Posterior splint to right lower extremity clean dry and intact. Sensation is intact to light touch to her toes. Toes are of normal color with normal capillary refill time and normal temperature. General Extremity: edema bilateral lower extremity and other findings Other Det ails: Capillary refill time less than 3 seconds noted to digits ; Negative for clubbing or cyanosis Skin General Skin Exam: atrophy and dry skin; Negative for ecchymosis, erythema, eschar, pallor or dermatitis Rashes: no rashes Neuro Sensory Exam: extremities light-touch: decreased Psych Appearance: appropriate Attitude: calm Assessment & Plan Assessment/Plan (1) Closed trimalleolar fracture of right ankle: QUALIFIERS: Encounter type: initial encounter Qualified Code(s): S82.851A - Displaced trimalleolar fracture of right lower leg, initial encounter for closed fracture (2) Type 2 diabetes mellitus: QUALIFIERS: Diabetes mellitus complication status: with neurologic complications Diabetes mellitus complication detail: with polyneuropathy Diabetes mellitus director long term care insulin use: with director long term care use Qualified Code(s): E11.42 - Type 2 diabetes mellitus with diabetic polyneuropathy; Z79.4 - [facility] (current) use of insulin (3) Morbid obesity: (4) Vitamin D deficiency: (5) Tobacco abuse: PLAN: Patient is status post ORIF right ankle fracture from 08-05-[address] Del Angel Patient seen and examined bedside appearing comfortable without obvious signs of distress Patient noted to right ankle trimalleolar fracture which is currently in a posterior splint after surgery Patient has history of poor wound healing. Patient broke the left ankle back in November [address] Mitchell of which she has had problems healing both the bone and the skin. She was just discharged from the wound care center for delayed incision healing this week. Patient has significant risk factors for delayed healing including smoking about 2 packs a day of cigarettes, hemoglobin A1c of 10.2 on 06/01/2020, history of vitamin D deficiency, morbid obesity along with her history of delayed healing to her other ankle and incision healing complications. Counseled patient importance of smoking cessation, blood glucose control, offloading and proper diet to best optimize her for wound healing Patient noted to have vitamin D count of 34.6 on 07/31/2020. Is noted this is on the low end of normal. This may still impact her wound healing ability. Patient is able to resume her anticoagulation schedule. All questions answered. Please contact if any questions or concerns. Patient should follow up with 1 week of discharge in my office. Roxane Del Angel DPM [facility] [phone] This note was generated with [email or web address] software. It may contain incorrect words, spelling, and punctuation that were not noted in checking the note before signing.
[2020-08-06 12:40] LABS: Bedside Glucose 105 mg/dL (70-110)
[2020-08-06 13:04] LABS: Pathologist Review Reviewed
[2020-08-06] MEDS: Senna/Docusate Sodium 1 Tablet 2 TABLET PO (14:30)
--- NOTE | 2020-08-06 14:59 | CASEMGMT ---
MAURO faxed updates including PT/OT from today to [facility]. Bianca will start the request for pre-cert. Plan: d/c to [facility] pending pre-cert. Aliya STBUBS
--- NOTE | 2020-08-06 15:14 | PN.HOSP_ITS ---
Subjective Subjective Patient complain of pain over surgical area mainly right medial malleolus. Has Robbi wrap bandage. Objective Data Objective Data Vital Signs: Vital Signs Temp Pulse Resp BP Pulse Ox 98.1 F 92 16 136/70 H 96 08/06/20 14:35 08/06/20 14:35 08/06/20 14:35 08/06/20 14:35 08/06/20 14:35 Oxygen Flow Rate (L/min) 3 Oxygen Delivery Method [2] Nasal Cannula Oxygen Delivery Method [1 ( Nasal Cannula Initial Baseline)] Oxygen Delivery Method Nasal Cannula Weight: 234 lb 15.992 oz Body Mass Index (BMI) 41.6 Intake & Output: Intake and Output for Last 24 Hours 08/04/20 08/05/20 08/06/20 23:59 23:59 23:59 Intake Total 3256 / 3256 1480 / 1480 Output Total 2800 / 2900 1250 / 1700 2700 / 2700 Balance -2800 / -2400 2006 / 1556 -1220 / -1220 Lab / Micro Data Result Diagrams: 08/06/20 05:20 08/06/20 05:20 Labs: Laboratory Results - last 24 hr 08/05/20 08/05/20 08/05/20 15:23 17:17 22:00 WBC RBC Hgb Hct MCV MCH MCHC RDW Std Deviation RDW Coeff of Kaycee Plt Count MPV Immature Gran % (Auto) Neut % (Auto) Lymph % (Auto) [place] % (Auto) Eos % (Auto) Baso % (Auto) Absolute Neuts (auto) Absolute Lymphs (auto) Nucleated RBC % Diff Path Review Sodium Potassium Chloride Carbon Dioxide Anion Gap BUN Creatinine Estim Creat Clear Calc Est GFR (MDRD) Af Amer Est GFR (MDRD) Non-Af BUN/Creatinine Ratio Glucose Calcium POC Glucose 203 H 157 H 125 H 08/06/20 08/06/20 08/06/20 05:20 05:20 08:09 WBC 14.9 H RBC 4.15 L Hgb 12.9 Hct 39.7 MCV 95.7 MCH 31.1 MCHC 32.5 RDW Std Deviation 47.0 H RDW Coeff of Kaycee 13.2 Plt Count 292 MPV 9.7 Immature Gran % (Auto) 0.300 Neut % (Auto) 76.4 H Lymph % (Auto) 8.1 L Jack % (Auto) 14.4 H Eos % (Auto) 0.3 Baso % (Auto) 0.5 Absolute Neuts (auto) 11.3 H Absolute Lymphs (auto) 1.20 Nucleated RBC % 0 [address] Path Review Reviewed Sodium 132 L Potassium 4.2 Chloride 98 Carbon Dioxide 28.0 Anion Gap 6 BUN 6 L Creatinine 0.68 Estim Creat Clear Calc 78.24 Est GFR (MDRD) Af Amer 116 Est GFR (MDRD) Non-Af 96 BUN/Creatinine Ratio 8.8 L Glucose 131 H Calcium 9.8 POC Glucose 158 H 08/06/20 12:35 WBC RBC Hgb Hct MCV MCH MCHC RDW Std Deviation RDW Coeff of Kaycee Plt Count MPV Immature Gran % (Auto) Neut % (Auto) Lymph % (Auto) [place] % (Auto) Eos % (Auto) Baso % (Auto) Absolute Neuts (auto) Absolute Lymphs (auto) Nucleated RBC % Diff Path Review Sodium Potassium Chloride Carbon Dioxide Anion Gap BUN Creatinine Estim Creat Clear Calc Est GFR (MDRD) Af Amer Est GFR (MDRD) Non-Af BUN/Creatinine Ratio Glucose Calcium POC Glucose 105 Micro: Microbiology 08/04/20 17:00 Nasal Secretion SARS-CoV-2 Antigen (Rapid) - Final Physical Exam Narrative Seen and examined General: AAOx3. In mild pain. Awake. HEENT: Atraumatic, PERRLA, EOMI, Normocephalic Oral: No Gingival or Mucosal Lesions/ Ulcerations Neck: Supple, No JVD, Negative Carotid Bruits Lungs: Air entry diminished in bilateral lung bases. No crepitation/rhonchi Cardiovascular: Regular rate, Regular Rhythm, Normal S1, Normal S2, No murmurs Abdomen: Bowel Sounds Present, Soft, Non Tender, Non-Distended : No renal angle tenderness. No suprapubic tenderness. Extremities: Tenderness around right ankle, mainly medial malleolus. Right lower leg on Robbi wrap bandage. Surgical dressing is dry. Left ankle has surgical scar. Skin: Dry and mildly atrophic. No ecchymosis/erythema. Musculoskeletal: Tenderness present over right ankle ROM restricted. Neurological: Cranial nerves II-XII grossly intact, Deep Tendon Reflexes 2+/4 and Symmetrical, Neuro grossly intact Psych/Mental Status: Normal Affect, Appropriate. Assessment & Plan Assessment/Plan (1) Closed trimalleolar fracture of right ankle: QUALIFIERS: Encounter type: initial encounter Qualified Code(s): S82.851A - Displaced trimalleolar fracture of right lower leg, initial encounter for closed fracture (2) Type 2 diabetes mellitus with diabetic polyneuropathy: QUALIFIERS: Diabetes mellitus predatory animal exterminator insulin use: with predatory animal exterminator use Qualified Code(s): E11.42 - Type 2 diabetes mellitus with diabetic polyneuropathy; Z79.4 - intermediate (current) use of insulin PLAN: ?This is a 54 years old female patient presented to the emergency room because of dizziness, fall followed by right ankle pain, found to have hypotension, acute kidney injury and acute traumatic right ankle fracture and is being admitted to monitored bed. 1. hypotension/near syncopal episode: Hypotension and near syncope has resolved. Blood pressure and heart rate in normal range. Hemodynamically stable. Mild sinus tachycardia. Metoprolol succinate dose increased to 75 mg daily. 08/06: Heart rate is controlled. 2. acute traumatic trimalleolar fracture of the right ankle,Due to mechanical fall: This is being followed by plastics spreading machine operator. On pain control. Patient has high risk as per NSQIP due to poor performance status but not surgically prohibitive and also medically optimized. Clopidogrel on hold, last dose was on 26. 08/05: Patient had open reduction and external fixation of right ankle fracture. Labs ordered for tomorrow a.m. 08/06: Leukocytosis. No fever. Last temperature 99.2 ?F on 08/05. Seems inflammatory from surgical distress. 3. acute kidney injury, prerenal due to dehydration: Resolved 4.? type 2 diabetes mellitus: Was controlled. * ADA diet, Accu-Cheks, insulin sliding scale, continue home dose of insulin * Surgery tomorrow a.m. glucose is controlled. A1c 8.1%. 08/05: Glucose is in 200s. Lantus and Humalog both insulin uptitrated. 08/06: Glucose is better controlled, 117-1 31. Insulin dose titrated 6.? CAD status post stents: Patient has history of multiple stents, last PCI was in 2007. Continue metoprolol and hold. * last PCI was around 2007 * hold clopidogrel for surgery * continue metoprolol 7.? COPD/severe asthma: * Stable, * Plan for DuoNeb every 6 hours, albuterol as needed, incentive spirometer. 8.? hypertension: * Blood pressure is normal. Hold lisinopril. Resume amlodipine lower dose. 9.? anxiety and depression: * Continue trazodone and Xanax. 10. history of PEs: * Hold Eliquis for now. Likely resume after surgery * Currently on enoxaparin 11.? DVT prophylaxis: anticoagulated Charges/Coding Visit Charges Inpatient E&M: 05614 Subs Hosp L2
[2020-08-06 16:51] LABS: Bedside Glucose 103 mg/dL (70-110)
[2020-08-06] MEDS: RisperiDONE 2 MG Tablet 4 MG PO (21:00)
[2020-08-06] MEDS: traZODone 100 MG Tablet 200 MG PO (21:00)
[2020-08-06] MEDS: Montelukast 10 MG Tablet PO (21:00)
[2020-08-06] MEDS: Atorvastatin Calcium 80 MG Tablet PO (21:00)
[2020-08-07] VITALS (7 sets, daily range): BP systolic 137–161; BP diastolic 64–76; PULSE 63–90; RESP 18–20; TEMP 36.2–36.8; O2SAT 94–97
--- NOTE | 2020-08-07 00:18 | NURSING ---
When this RN was rounding at 2054, patient requested evening medications.
[2020-08-07 02:51] LABS: Bedside Glucose 188 mg/dL (70-110)
[2020-08-07] MEDS: HYDROmorphone 1 MG/ML Syringe IV (04:20)
[2020-08-07] MEDS: Lactated Ringers 1,000 ML 100 ML IV (04:27)
[2020-08-07 05:49] LABS: Absolute Lymphocyte Count 1.19 X10^3/uL (0.83-4.51); Absolute Neutrophil Count 10.9 X10^3/uL (2.0-7.7); Basophil# 0.07 X10^3/uL; Basophil% 0.5 % (0-1); Eosinophil# 0.14 X10^3/uL; Hematocrit 36.7 % (37-47); Hemoglobin 11.7 g/dL (12.0-15.0); Lymphocyte # 1.19 X10^3/ul (0.83-4.51); Lymphocyte % 8.3 % (19-41); Mean Corp Hgb Conc 31.9 g/dL (32-36); Mean Corpuscular Hgb 30.5 pg (27.0-32.0); Mean Corpuscular Volume 95.8 fL (81-99); Mean Platelet Vol. 9.7 fl (6.2-12.0); Monocyte# 1.96 X10^3/uL; Monocyte% 13.7 % (0-10); NRBC Flagged by Analyzer 0 % (0-5); Neutrophil # 10.88 X10^3/uL (2.7-7.7); POSITIVE DIFFERENTIAL YES; Platelet Count 280 K/mm3 (150-450); RBC Distribution Width CV 13.2 % (11.6-14.6); Red Blood Count 3.83 M/mm3 (4.2-5.4); White Blood Count 14.3 K/mm3 (4.4-11.0)
[2020-08-07] MEDS: Menthol/Lanolin/Calamine/Znox 113 GM Tube 1 APPLIC TOPICAL ×3 (06:05→21:33)
[2020-08-07] MEDS: Dicyclomine 10 MG Capsule 20 MG PO ×3 (06:06→16:40)
[2020-08-07] MEDS: tiZANidine HCl 2 MG Tablet 6 MG PO ×2 (06:06→15:45)
[2020-08-07] MEDS: Senna/Docusate Sodium 1 Tablet 2 TABLET PO (06:06)
[2020-08-07] MEDS: Sucralfate 1 GM Tablet PO ×4 (06:06→21:33)
[2020-08-07] MEDS: Pregabalin 75 MG Capsule PO ×3 (06:06→21:33)
[2020-08-07 06:29] LABS: Differential Indicated SCAN CRITERIA MET
[2020-08-07 06:37] LABS: Anion Gap 6 (5-15); BUN 7 mg/dL (7-18); BUN/Creat Ratio 10.1 RATIO (10-20); Chloride 99 mmol/L (98-107); Creatinine, Serum 0.69 mg/dL (0.55-1.02); EST Glomerular Filtration Rate 94 mL/min (>60); Est Glom Filt Rate - Afr Amer 113 mL/min (>60); Glucose 129 mg/dL (74-106); Sodium Level 134 mmol/L (136-145)
[2020-08-07] MEDS: Insulin Lispro 100 UNIT/ML INSULN.PEN 10 UNIT SC ×2 (08:05→11:55)
[2020-08-07] MEDS: busPIRone 15 MG TABLET 30 MG PO ×2 (08:06→21:33)
[2020-08-07] MEDS: Enoxaparin 100 MG/ML Syringe SC ×2 (08:07→21:34)
[2020-08-07] MEDS: Mirabegron 25 MG TAB.ER.24H PO (08:08)
[2020-08-07] MEDS: Famotidine 20 MG Tablet PO ×2 (08:08→21:33)
[2020-08-07] MEDS: amLODIPine 2.5 MG Tablet PO (08:08)
[2020-08-07] MEDS: Polyethylene Glycol 3350 17 GM PACKET PO (08:09)
[2020-08-07] MEDS: Metoprolol(XL)Succ 25 MG Tablet 75 MG PO (08:10)
[2020-08-07] MEDS: HYDROmorphone 2 MG TABLET PO ×5 (08:15→21:33)
[2020-08-07 08:51] LABS: Bedside Glucose 143 mg/dL (70-110)
[2020-08-07] MEDS: Insulin Lispro 100 UNIT/ML INSULN.PEN SC ×2 (11:57→21:55)
[2020-08-07 12:06] LABS: Bedside Glucose 203 mg/dL (70-110)
[2020-08-07] MEDS: Ipratropium/Albuterol Sulfate 3 ML AMPUL.NEB INHALATION ×2 (13:09→19:00)
[2020-08-07] MEDS: Acetaminophen 325 MG Tablet 650 MG PO (13:30)
[2020-08-07] MEDS: ALPRAZolam 0.5 MG Tablet PO ×2 (13:30→22:08)
[2020-08-07 14:26] LABS: Pathologist Review Reviewed
--- NOTE | 2020-08-07 15:19 | CASEMGMT ---
MAURO put a green sheet on chart in the event [facility] gets pre-cert after SW has left. Plan:[facility] pending pre-cert. Aliya STUBBS
--- NOTE | 2020-08-07 15:55 | PN.HOSP_ITS ---
Subjective Subjective Patient is to complain of pain over ankle I think she is getting more pain dependent Pending pre-CERT. Objective Data Objective Data Vital Signs: Vital Signs Temp Pulse Resp BP Pulse Ox 97.7 F L 90 18 137/67 H 96 08/07/20 08:40 08/07/20 13:09 08/07/20 13:09 08/07/20 08:40 08/07/20 08:40 Oxygen Flow Rate (L/min) 3 Oxygen Delivery Method [2] Nasal Cannula Oxygen Delivery Method [1 ( Nasal Cannula Initial Baseline)] Oxygen Delivery Method Nasal Cannula Weight: 234 lb 15.992 oz Body Mass Index (BMI) 41.6 Intake & Output: Intake and Output for Last 24 Hours 08/05/20 08/06/20 08/07/20 23:59 23:59 23:59 Intake Total 3256 / 3256 2920 / 3160 3020 / 3020 Output Total 1250 / 1700 4200 / 5350 3500 / 3500 Balance 2006 / 1556 -1280 / -2190 -480 / -480 Lab / Micro Data Result Diagrams: 08/07/20 05:40 08/07/20 05:40 Labs: Laboratory Results - last 24 hr 08/06/20 08/06/20 08/07/20 16:40 20:56 05:40 WBC RBC Hgb Hct MCV MCH MCHC RDW Std Deviation RDW Coeff of Kaycee Plt Count MPV Immature Gran % (Auto) Neut % (Auto) Lymph % (Auto) [place] % (Auto) Eos % (Auto) Baso % (Auto) Absolute Neuts (auto) Absolute Lymphs (auto) Nucleated RBC % Diff Path Review Sodium 134 L Potassium 4.0 Chloride 99 Carbon Dioxide 29.0 Anion Gap 6 BUN 7 Creatinine 0.69 Estim Creat Clear Calc 77.10 Est GFR (MDRD) Af Amer 113 Est GFR (MDRD) Non-Af 94 BUN/Creatinine Ratio 10.1 Glucose 129 H Calcium 10.0 Magnesium 2.0 POC Glucose 103 188 H 08/07/20 08/07/20 08/07/20 05:40 08:00 11:54 WBC 14.3 H RBC 3.83 L Hgb 11.7 L Hct 36.7 L MCV 95.8 MCH 30.5 MCHC 31.9 L RDW Std Deviation 46.0 H RDW Coeff of Kaycee 13.2 Plt Count 280 MPV 9.7 Immature Gran % (Auto) 0.500 Neut % (Auto) 76.0 H Lymph % (Auto) 8.3 L [place] % (Auto) 13.7 H Eos % (Auto) 1.0 Baso % (Auto) 0.5 Absolute Neuts (auto) 10.9 H Absolute Lymphs (auto) 1.19 Nucleated RBC % 0 Diff Path Review Reviewed Sodium Potassium Chloride Carbon Dioxide Anion Gap BUN Creatinine Estim Creat Clear Calc Est GFR (MDRD) Af Amer Est GFR (MDRD) Non-Af BUN/Creatinine Ratio Glucose Calcium Magnesium POC Glucose 143 H 203 H Micro: Microbiology 08/04/20 17:00 Nasal Secretion SARS-CoV-2 Antigen (Rapid) - Final Physical Exam Narrative Seen and examined General: AAOx3. HEENT: Atraumatic, PERRLA, EOMI, Normocephalic Oral: No Gingival or Mucosal Lesions/ Ulcerations Neck: Supple, No JVD, Negative Carotid Bruits Lungs: Air entry diminished in bilateral lung bases. No crepitation/rhonchi Cardiovascular: Regular rate, Regular Rhythm, Normal S1, Normal S2, No murmurs Abdomen: Bowel Sounds Present, Soft, Non Tender, Non-Distended : No renal angle tenderness. No suprapubic tenderness. Extremities: Tenderness around right ankle Right lower leg on Robbi wrap bandage. Surgical dressing is dry. Left ankle has surgical scar. Skin: Dry and mildly atrophic. No ecchymosis/erythema. Musculoskeletal: Tenderness present over right ankle ROM restricted. Neurological: Cranial nerves II-XII grossly intact, Deep Tendon Reflexes 2+/4 and Symmetrical, Neuro grossly intact Psych/Mental Status: Normal Affect, Appropriate. Assessment & Plan Assessment/Plan (1) Closed trimalleolar fracture of right ankle: QUALIFIERS: Encounter type: initial encounter Qualified Code(s): S82.851A - Displaced trimalleolar fracture of right lower leg, initial encounter for closed fracture (2) Type 2 diabetes mellitus with diabetic polyneuropathy: QUALIFIERS: Diabetes mellitus retirement insulin use: with ad terminal makeup operator use Qualified Code(s): E11.42 - Type 2 diabetes mellitus with diabetic polyneuropathy; Z79.4 - longterm (current) use of insulin PLAN: ?This is a 54 years old female patient presented to the emergency room because of dizziness, fall followed by right ankle pain, found to have hypotension, acute kidney injury and acute traumatic right ankle fracture and is being admitted to monitored bed. 1. hypotension/near syncopal episode: Hypotension and near syncope has resolved. Blood pressure and heart rate in normal range. Hemodynamically stable. Mild sinus tachycardia. Metoprolol succinate dose increased to 75 mg daily. 08/06: Heart rate is controlled. 2. acute traumatic trimalleolar fracture of the right ankle,Due to mechanical fall: This is being followed by anesthetic assistant. On pain control. Patient has high risk as per NSQIP due to poor performance status but not surgically prohibitive and also medically optimized. Clopidogrel on hold, last dose was on 26. 08/05: Patient had open reduction and external fixation of right ankle fracture. Labs ordered for tomorrow a.m. 08/06: Leukocytosis. No fever. Last temperature 99.2 ?F on 08/05. Seems inflammatory from surgical distress. 3. acute kidney injury, prerenal due to dehydration: Resolved 4.? type 2 diabetes mellitus: Was controlled. * ADA diet, Accu-Cheks, insulin sliding scale, continue home dose of insulin * Surgery tomorrow a.m. glucose is controlled. A1c 8.1%. 08/05: Glucose is in 200s. Lantus and Humalog both insulin uptitrated. 08/06: Glucose is better controlled, 117-1 31. Insulin dose titrated 08/07: Blood sugar controlled. 6.? CAD status post stents: Patient has history of multiple stents, last PCI was in 2007. Continue metoprolol and hold. * last PCI was around 2007 * hold clopidogrel for surgery * continue metoprolol 7.? COPD/severe asthma: * Stable, * Plan for DuoNeb every 6 hours, albuterol as needed, incentive spirometer. 8.? hypertension: * Blood pressure is normal. Hold lisinopril. Resume amlodipine lower dose. 9.? anxiety and depression: * Continue trazodone and Xanax. 10. history of PEs: * Hold Eliquis for now. Likely resume after surgery * Currently on enoxaparin 11.? DVT prophylaxis: anticoagulated Signout: Discharge the patient once pre-CERT is available. Medically stable Charges/Coding Visit Charges Inpatient E&M: 93153 Subs Hosp L2
[2020-08-07 16:45] LABS: Bedside Glucose 86 mg/dL (70-110)
--- NOTE | 2020-08-07 18:14 | PN_ITS ---
Subjective Subjective Patient was seen today for follow up on right ankle, s/p ORIF. She is resting comfortably in bed, she relates pain is getting better everyday. She has no complaints of fever, chills, nausea or vomiting. Objective Data Objective Data Vital Signs: Vital Signs Temp Pulse Resp BP Pulse Ox 97.7 F L 90 18 137/67 H 96 08/07/20 08:40 08/07/20 13:09 08/07/20 13:09 08/07/20 08:40 08/07/20 08:40 Oxygen Flow Rate (L/min) 3 Oxygen Delivery Method [2] Nasal Cannula Oxygen Delivery Method [1 ( Nasal Cannula Initial Baseline)] Oxygen Delivery Method Nasal Cannula Weight: 106.594 kg Body Mass Index (BMI) 41.6 Intake & Output: Intake and Output for Last 24 Hours 08/05/20 08/06/20 08/07/20 23:59 23:59 23:59 Intake Total 3256 / 3256 2920 / 3160 3020 / 3020 Output Total 1250 / 1700 4200 / 5350 3500 / 3500 Balance 2006 / 1556 -1280 / -2190 -480 / -480 Lab / Micro Data Result Diagrams: 08/07/20 05:40 08/07/20 05:40 Labs: Laboratory Results - last 24 hr 08/06/20 08/07/20 08/07/20 20:56 05:40 05:40 WBC 14.3 H RBC 3.83 L Hgb 11.7 L Hct 36.7 L MCV 95.8 MCH 30.5 MCHC 31.9 L RDW Std Deviation 46.0 H RDW Coeff of Kaycee 13.2 Plt Count 280 MPV 9.7 Immature Gran % (Auto) 0.500 Neut % (Auto) 76.0 H Lymph % (Auto) 8.3 L [place] % (Auto) 13.7 H Eos % (Auto) 1.0 Baso % (Auto) 0.5 Absolute Neuts (auto) 10.9 H Absolute Lymphs (auto) 1.19 Nucleated RBC % 0 Diff Path Review Reviewed Sodium 134 L Potassium 4.0 Chloride 99 Carbon Dioxide 29.0 Anion Gap 6 BUN 7 Creatinine 0.69 Estim Creat Clear Calc 77.10 Est GFR (MDRD) Af Amer 113 Est GFR (MDRD) Non-Af 94 BUN/Creatinine Ratio 10.1 Glucose 129 H Calcium 10.0 Magnesium 2.0 POC Glucose 188 H 08/07/20 08/07/20 08/07/20 08:00 11:54 16:38 WBC RBC Hgb Hct MCV MCH MCHC RDW Std Deviation RDW Coeff of Kaycee Plt Count MPV Immature Gran % (Auto) Neut % (Auto) Lymph % (Auto) [place] % (Auto) Eos % (Auto) Baso % (Auto) Absolute Neuts (auto) Absolute Lymphs (auto) Nucleated RBC % Diff Path Review Sodium Potassium Chloride Carbon Dioxide Anion Gap BUN Creatinine Estim Creat Clear Calc Est GFR (MDRD) Af Amer Est GFR (MDRD) Non-Af BUN/Creatinine Ratio Glucose Calcium Magnesium POC Glucose 143 H 203 H 86 Micro: Microbiology 08/04/20 17:00 Nasal Secretion SARS-CoV-2 Antigen (Rapid) - Final Physical Exam Const alert and no apparent distress General Appearance: cooperative and comfortable Resp Effort and Inspection: able to speak in complete sentences Extremity normal capillary refill and no calf tenderness Extremity Narrative: Posterior splint to right lower extremity clean dry and intact. Sensation is intact to light touch to her toes. Toes are of normal color with normal capillary refill time and normal temperature. No suspicion for DVT or infection at this time to the right ankle. General Extremity: edema bilateral lower extremity and other findings Other Details: Capillary refill time less than 3 seconds noted to digits ; Negative for clubbing or cyanosis Skin General Skin Exam: atrophy and dry skin; Negative for ecchymosis, erythema, eschar, pallor or dermatitis Rashes: no rashes Neuro Sensory Exam: extremities light-touch: decreased Psych Appearance: appropriate Attitude: calm Assessment & Plan Assessment/Plan (1) Closed trimalleolar fracture of right ankle: QUALIFIERS: Encounter type: initial encounter Qualified Code(s): S82.851A - Displaced trimalleolar fracture of right lower leg, initial encounter for closed fracture (2) Type 2 diabetes mellitus: QUALIFIERS: Diabetes mellitus complication status: with neurologic complications Diabetes mellitus complication detail: with polyneuropathy Diabetes mellitus skilled nursing insulin use: with skilled nursing use Qualified Code(s): E11.42 - Type 2 diabetes mellitus with diabetic polyneuropathy; Z79.4 - FDC (current) use of insulin (3) Morbid obesity: (4) Vitamin D deficiency: (5) Tobacco abuse: PLAN: Patient is status post ORIF right ankle fracture from 08-05-[address] Del Angel. Patient seen and examined bedside appearing comfortable without obvious signs of distress. Patient noted to right ankle trimalleolar fracture which is currently in a posterior splint after surgery. Currently pain controlled. Keep dressing/splint right foot/ankle/leg clean, dry and intact. Patient has significant risk factors for delayed healing including smoking about 2 packs a day of cigarettes, hemoglobin A1c of 10.2 on 06/01/2020, history of vitamin D deficiency, morbid obesity along with her history of delayed healing to her other ankle and incision healing complications. Counseled patient importance of smoking cessation, blood glucose control, offloading and proper diet to best optimize her for wound healing Patient noted to have vitamin D count of 34.6 on 07/31/2020. Is noted this is on the low end of normal. This may still impact her wound healing ability. Patient is able to resume her anticoagulation schedule. She is currently on Lovenox. Nursing facility placement is pending. Podiatry will continue to follow. Please contact if any questions or concerns. Patient should follow up with 1 week of discharge at [facility] with Dr. Del Angel
[2020-08-07] MEDS: Montelukast 10 MG Tablet PO (21:33)
[2020-08-07] MEDS: Atorvastatin Calcium 80 MG Tablet PO (21:33)
[2020-08-07] MEDS: RisperiDONE 2 MG Tablet 4 MG PO (21:33)
[2020-08-07] MEDS: traZODone 100 MG Tablet 200 MG PO (21:33)
[2020-08-07 22:56] LABS: Bedside Glucose 238 mg/dL (70-110)
[2020-08-08] VITALS (9 sets, daily range): BP systolic 123–150; BP diastolic 61–69; PULSE 68–85; RESP 18–23; TEMP 36.6–37.3; O2SAT 93–97
[2020-08-08] MEDS: tiZANidine HCl 2 MG Tablet 6 MG PO ×3 (03:13→18:52)
[2020-08-08] MEDS: HYDROmorphone 2 MG TABLET PO ×5 (03:14→21:46)
[2020-08-08] MEDS: Menthol/Lanolin/Calamine/Znox 113 GM Tube 1 APPLIC TOPICAL ×3 (06:05→21:44)
[2020-08-08] MEDS: Dicyclomine 10 MG Capsule 20 MG PO ×3 (06:06→15:14)
[2020-08-08] MEDS: Pregabalin 75 MG Capsule PO ×3 (06:06→21:51)
[2020-08-08] MEDS: ALPRAZolam 0.5 MG Tablet PO ×3 (06:06→20:25)
[2020-08-08] MEDS: Sucralfate 1 GM Tablet PO ×4 (06:06→21:47)
[2020-08-08 06:16] LABS: Bedside Glucose 116 mg/dL (70-110)
--- NOTE | 2020-08-08 06:53 | PCM.PN.BLA ---
Progress Note Patient overnight with no acute events per self and per nursing report. Patient was still complains intermittently of ankle discomfort status post operative intervention however upon evaluation no complaints given. Patient has been using significant amounts of narcotics and some concerns have been brought up by staff, will transition off IV as needed regimen and increase oral regimen to every 4 as needed only especially given patient plan discharge to facility on Monday pending precertification. Discussed patient with podiatry with dressing performed this a.m. and they noted is well-appearing with planned repeat dressing change on Monday prior to her discharge. Patient denies fevers, chills, nausea, emesis, abdominal pain, chest pain or dyspnea. Physical Exam Narrative Temp Pulse Resp BP Pulse Ox 97.9 F 79 23 H 150/68 H 97 08/08/20 09:00 08/08/20 09:00 08/08/20 13:26 08/08/20 09:00 08/08/20 09:00 08/08/20 08/08/20 08/07/20 13:34 06:04 21:54 POC Glucose 192 H 116 H 238 H 08/07/20 16:38 POC Glucose 86 Physical Examination: General: awake, alert, oriented x 3 and cooperative, seated upright in the PCU bed, NAD, eating, refused to turn the TV off. Skin: normal color, normal turgor, no icterus, no cyanosis except R ankle with dressing in place, elevated, no drainage noted. HEENT: AT/NC, EOMI, PERRLA, MMM. Lungs: CTA bilaterally, moderate effort, mild decrease BL bases, no rales, ronchi or wheezing. Heart: Regular rate and rhythm; no gallop, rub audible. Abdomen: soft, morbidly obese, NTTP, ND, distant normal BS. Extremities: no cyanosis, no clubbing, mild L ankle edema, R ankle w/ dressing in place as noted. Neurological: patient awake, alert, oriented x 3, cognitive function intact; pupils equally reactive to light and accommodation, cranial nerves II-XII grossly normal, moving all 4 extremities although notably limited RLE given discomfort w/ movement, strength accordingly moderately to severely decreased, reticent to move also. Psychiatric: affect appears normal, no acute evidence of depressive or anxiety feelings. Assessment & Plan Assessment/Plan (1) Closed trimalleolar fracture of right ankle: QUALIFIERS: Encounter type: initial encounter Qualified Code(s): S82.851A - Displaced trimalleolar fracture of right lower leg, initial encounter for closed fracture PLAN: The patient is a 54 y/o F w/ PMHx: Morbid Obesity, HTN, HLD, CAD s/p PCI, Chronic COPD, Diabetes mellitus type II with peripheral neuropathy, Hx PE, Anxiety and Depression/Bipolar disorder, GERD who presents to the [facility] ED on 07/30/20 with near syncopal event with R ankle debility and pain following her fall. 1. Near syncopal event with hypotension: Patient with likely fall and acute traumatic trimalleolar fracture of the right ankle secondary to this event, blood pressure and heart rate have improved, currently maintained on telemetry with noted initially mild sinus tachycardia improved on the metoprolol succinate with dose increased to 75 mg daily with appropriate BPs following, patient BP regimen notable adjusted with hold on diuretic and ACEI with improvement of her symptoms as well as BP. PT/OT/CM with planned SNF placement Monday. 2. Acute traumatic trimalleolar fracture of the right ankle: Secondary to mechanical fall, podiatry consulted and following, status post OR 08/05 with OREF of the right ankle, dressing changed per podiatry 08/08/2020 with planned repeat dressing change Monday prior to skilled facility placement pending pre-CERT, initially on aggressive IV and oral pain regimen, have now de-escalate it off IV pain regimen and will lengthen time of oral regimen given concerns. Continue dressing changes per podiatry and wound RN, elevation. 3. Diabetes mellitus type II with hyperglycemia with peripheral neuropathy: Noted hemoglobin A1c 8.1%, given hyperglycemia during admission long-acting insulin and short-acting both increased, ADA diet, accu checks w/ ISS, continue home Lyrica regimen. 4. CAD: Status post PCI history, last 2007, initially Plavix held for surgery, cleared now currently for resumption per podiatry, will continue beta-camila as noted. 5. Hypertension: Continue home regimen including metoprolol, Norvasc with hold parameters as needed, PRN hydralazine. 6. Hyperlipidemia: We will continue home statin therapy. 7. Chronic COPD: Maintain on ATC duonebs, PRN albuterol, HOB, IS parameters. 8. History of pulmonary emboli: Initially Eliquis had been held, transition to Lovenox, cleared currently for resumption of Eliquis oral regimen. 9. Anxiety and depression/Bipolar disorder: We will continue patient home trazodone, Risperdal, BuSpar and Xanax regimen. 10. Morbid Obesity: Weight loss and lifestyle changes encouraged, nutrition consulted. 11. GERD, history of GI bleed/ulcers: Continue patient home famotidine and Carafate regimen. 12. DVT prophylaxis: SCD to left lower extremity, will resume patient home JASMYN Rosas therapeutic Lovenox. Visit Charges Inpatient E&M: 48530 Subs Hosp L2
[2020-08-08] MEDS: Ipratropium/Albuterol Sulfate 3 ML AMPUL.NEB INHALATION ×3 (07:15→21:54)
[2020-08-08] MEDS: busPIRone 15 MG TABLET 30 MG PO ×2 (08:01→21:46)
[2020-08-08] MEDS: Famotidine 20 MG Tablet PO ×2 (08:03→21:47)
[2020-08-08] MEDS: Insulin Lispro 100 UNIT/ML INSULN.PEN 10 UNIT SC ×3 (08:09→16:52)
[2020-08-08] MEDS: amLODIPine 2.5 MG Tablet PO (08:22)
[2020-08-08] MEDS: Polyethylene Glycol 3350 17 GM PACKET PO ×2 (08:23→21:47)
[2020-08-08] MEDS: Enoxaparin 100 MG/ML Syringe SC (08:23)
[2020-08-08] MEDS: Mirabegron 25 MG TAB.ER.24H PO (08:23)
[2020-08-08] MEDS: Metoprolol(XL)Succ 25 MG Tablet 75 MG PO (08:24)
--- NOTE | 2020-08-08 08:42 | PCM.PROGNOTE ---
Subjective Subjective Patient was seen this morning for follow up on right ankle. She is resting comfortably in bed. She relates to pain to the ankle - points to the anterior and medial aspects - she relates the pain is getting better. No fever, chills, nausea, vomiting, calf pain or any other complaints at this time. Objective Data Objective Data Vital Signs: Vital Signs Temp Pulse Resp BP Pulse Ox 98.4 F 85 23 H 126/69 H 94 08/08/20 03:09 08/08/20 08:24 08/08/20 07:15 08/08/20 03:09 08/08/20 07:15 Oxygen Flow Rate (L/min) 3 Oxygen Delivery Method [2] Nasal Cannula Oxygen Delivery Method [1 ( Nasal Cannula Initial Baseline)] Oxygen Delivery Method Nasal Cannula Weight: 106.594 kg Body Mass Index (BMI) 41.6 Intake & Output: Intake and Output for Last 24 Hours 08/06/20 08/07/20 08/08/20 23:59 23:59 23:59 Intake Total 2920 / 3160 3820 / 3820 400 / 400 Output Total 4200 / 5350 5100 / 5100 950 / 950 Balance -1280 / -2190 -1280 / -1280 -550 / -550 Lab / Micro Data Result Diagrams: 08/07/20 05:40 08/07/20 05:40 Labs: Laboratory Results - last 24 hr 08/07/20 08/07/20 08/07/20 05:40 08:00 11:54 Diff Path Review Reviewed POC Glucose 143 H 203 H 08/07/20 08/07/20 08/08/20 16:38 21:54 06:04 Diff Path Review POC Glucose 86 238 H 116 H Micro: Microbiology 08/04/20 17:00 Nasal Secretion SARS-CoV-2 Antigen (Rapid) - Final Physical Exam Const alert and no apparent distress General Appearance: cooperative and comfortable Resp Effort and Inspection: able to speak in complete sentences Extremity normal capillary refill and no calf tenderness Extremity Narrative: Posterior splint to right lower extremity clean dry and intact. Dressing/splint removed and examined right ankle - incisions are well coapted, sutures intact, no drainage, no fluctuance, no crepitus, no blistering, no maloder, no streaking, no cellulitis, no necrosis present, no tissue break down bilateral. Sensation is intact to light touch to her toes. There is some localized edema to the right ankle c/w her injury s/p ORIF. Toes are of normal color with normal capillary refill time and normal temperature, calf is soft and supple with no calf pain at this time. No calf pain bilateral, calf soft and supple bilateral with no evidence of DVT. General Extremity: Negative for clubbing or cyanosis Skin General Skin Exam: atrophy and dry skin; Negative for ecchymosis, erythema, eschar, pallor or dermatitis Rashes: no rashes Psych Appearance: appropriate Attitude: calm Assessment & Plan Assessment/Plan (1) Closed trimalleolar fracture of right ankle: QUALIFIERS: Encounter type: initial encounter Qualified Code(s): S82.851A - Displaced trimalleolar fracture of right lower leg, initial encounter for closed fracture (2) Type 2 diabetes mellitus: QUALIFIERS: Diabetes mellitus complication detail: with polyneuropathy Diabetes mellitus complication status: with neurologic complications 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 Del Angel. Patient seen and examined bedside appearing comfortable without obvious signs of distress. Patient noted to right ankle trimalleolar fracture which is currently in a posterior splint after surgery. Dressing was changed today, and healing appropriately at this time. Painted incision sites with betadine soln, applied gauze, kerlix and lukas dressing with overlying below knee posterior splint secured with lukas bandages. Keep dressing/splint right foot/ankle/leg clean, dry and intact. Continue with pain management, currently pain controlled. Patient has significant risk factors for delayed healing including smoking about 2 packs a day of cigarettes, hemoglobin A1c of 10.2 on 06/01/2020, history of vitamin D deficiency, morbid obesity along with her history of delayed healing to her other ankle and incision healing complications. Counseled patient importance of smoking cessation, blood glucose control, offloading and proper diet to best optimize her for wound and bone healing. Patient is able to resume her anticoagulation schedule. She is currently on Lovenox. Nursing facility placement is pending. Podiatry will continue to follow. Please contact if any questions or concerns. Patient should follow up with 1 week of discharge at [facility] with Dr. Del Angel
[2020-08-08] MEDS: Insulin Lispro 100 UNIT/ML INSULN.PEN SC (13:36)
[2020-08-08 13:46] LABS: Bedside Glucose 192 mg/dL (70-110)
[2020-08-08 17:00] LABS: Bedside Glucose 82 mg/dL (70-110)
[2020-08-08] MEDS: Acetaminophen 325 MG Tablet 650 MG PO (20:25)
[2020-08-08] MEDS: Atorvastatin Calcium 80 MG Tablet PO (21:47)
[2020-08-08] MEDS: traZODone 100 MG Tablet 200 MG PO (21:47)
[2020-08-08] MEDS: Montelukast 10 MG Tablet PO (21:48)
[2020-08-08] MEDS: APIXABAN 5 MG TABLET PO (21:49)
[2020-08-08] MEDS: RisperiDONE 2 MG Tablet 4 MG PO (21:49)
[2020-08-08 21:56] LABS: Bedside Glucose 115 mg/dL (70-110)
[2020-08-09] VITALS (7 sets, daily range): BP systolic 132–154; BP diastolic 54–70; PULSE 64–89; RESP 18–19; TEMP 36.6–37.1; O2SAT 93–97
[2020-08-09] MEDS: HYDROmorphone 2 MG TABLET PO ×5 (02:31→22:12)
[2020-08-09] MEDS: Pregabalin 75 MG Capsule PO ×3 (05:32→21:09)
[2020-08-09] MEDS: Acetaminophen 325 MG Tablet 650 MG PO ×2 (05:32→21:02)
[2020-08-09] MEDS: tiZANidine HCl 2 MG Tablet 6 MG PO ×3 (05:33→22:12)
[2020-08-09] MEDS: Menthol/Lanolin/Calamine/Znox 113 GM Tube 1 APPLIC TOPICAL ×3 (05:34→21:06)
[2020-08-09 05:38] LABS: Absolute Lymphocyte Count 1.44 X10^3/uL (0.83-4.51); Absolute Neutrophil Count 9.6 X10^3/uL (2.0-7.7); Basophil# 0.12 X10^3/uL; Basophil% 0.9 % (0-1); Eosinophil# 0.37 X10^3/uL; Eosinophils% 2.9 % (0-5); Hematocrit 37.8 % (37-47); Hemoglobin 12.8 g/dL (12.0-15.0); Lymphocyte # 1.44 X10^3/ul (0.83-4.51); Lymphocyte % 11.3 % (19-41); Mean Corp Hgb Conc 33.9 g/dL (32-36); Mean Corpuscular Hgb 31.3 pg (27.0-32.0); Mean Corpuscular Volume 92.4 fL (81-99); Mean Platelet Vol. 9.6 fl (6.2-12.0); Monocyte# 1.17 X10^3/uL; Monocyte% 9.2 % (0-10); NRBC Flagged by Analyzer 0 % (0-5); Neutrophil # 9.55 X10^3/uL (2.7-7.7); Neutrophil % 75.4 % (47-70); Platelet Count 355 K/mm3 (150-450); RBC Distribution Width CV 12.9 % (11.6-14.6); RBC Distribution Width SD 43.7 fl (35.1-43.9); Red Blood Count 4.09 M/mm3 (4.2-5.4); White Blood Count 12.7 K/mm3 (4.4-11.0)
[2020-08-09] MEDS: ALPRAZolam 0.5 MG Tablet PO ×3 (05:38→20:15)
[2020-08-09 06:28] LABS: ALB/GLOB Ratio 0.5 RATIO (0.9-2.4); AST(SGOT) 49 U/L (15-37); Alanine Aminotransfer ALT/SGPT 57 U/L (13-56); Albumin, Serum 2.4 g/dL (3.2-5.0); Alkaline Phosphatase 214 U/L (45-117); Anion Gap 7 (5-15); BUN 6 mg/dL (7-18); BUN/Creat Ratio 10.2 RATIO (10-20); Calcium,Total 10.3 mg/dL (8.5-10.1); Chloride 100 mmol/L (98-107); Creatinine, Serum 0.59 mg/dL (0.55-1.02); EST Glomerular Filtration Rate 113 mL/min (>60); Est Glom Filt Rate - Afr Amer 137 mL/min (>60); Estimated Creatinine Clearance 90.17 ml/min; Globulin 4.9 g/dL (2.2-4.2); Glucose 94 mg/dL (74-106); Potassium 4.1 mmol/L (3.5-5.1); Protein, Total 7.3 g/dL (6.4-8.2); Sodium Level 132 mmol/L (136-145)
[2020-08-09] MEDS: Dicyclomine 10 MG Capsule 20 MG PO ×3 (06:46→16:24)
[2020-08-09] MEDS: Sucralfate 1 GM Tablet PO ×4 (06:46→21:10)
--- NOTE | 2020-08-09 09:27 | PCM.PROGNOTE ---
Subjective Subjective Patient was seen this morning, she relates resting in bed with no complaints. She relates dressing/splint right foot/ankle/leg is comfortable. She relates to some ankle pain but controlled at this time. She is afebrile. Objective Data Objective Data Vital Signs: Vital Signs Temp Pulse Resp BP Pulse Ox 98.8 F 64 18 133/62 H 96 08/09/20 02:30 08/09/20 02:30 08/09/20 02:30 08/09/20 02:30 08/09/20 02:30 Oxygen Flow Rate (L/min) 3 Oxygen Delivery Method [2] Nasal Cannula Oxygen Delivery Method [1 ( Nasal Cannula Initial Baseline)] Oxygen Delivery Method Nasal Cannula Weight: 106.594 kg Body Mass Index (BMI) 41.6 Intake & Output: Intake and Output for Last 24 Hours 08/07/20 08/08/20 08/09/20 23:59 23:59 23:59 Intake Total 3820 / 3820 400 / 400 Output Total 5100 / 5100 2425 / 2425 1050 / 1050 Balance -1280 / -1280 -2025 / -2025 -1050 / -1050 Lab / Micro Data Result Diagrams: 08/09/20 05:32 08/09/20 05:32 Labs: Laboratory Results - last 24 hr 08/08/20 08/08/20 08/08/20 13:34 16:51 21:44 WBC RBC Hgb Hct MCV MCH MCHC RDW Std Deviation RDW Coeff of Kaycee Plt Count MPV Immature Gran % (Auto) Neut % (Auto) Lymph % (Auto) [place] % (Auto) Eos % (Auto) Baso % (Auto) Absolute Neuts (auto) Absolute Lymphs (auto) Nucleated RBC % Sodium Potassium Chloride Carbon Dioxide Anion Gap BUN Creatinine Estim Creat Clear Calc Est GFR (MDRD) Af Amer Est GFR (MDRD) Non-Af BUN/Creatinine Ratio Glucose Calcium Total Bilirubin AST ALT Alkaline Phosphatase Total Protein Albumin Globulin Albumin/Globulin Ratio POC Glucose 192 H 82 115 H 08/09/20 08/09/20 05:32 05:32 WBC 12.7 H RBC 4.09 L Hgb 12.8 Hct 37.8 MCV 92.4 MCH 31.3 MCHC 33.9 D RDW Std Deviation 43.7 RDW Coeff of Kaycee 12.9 Plt Count 355 MPV 9.6 Immature Gran % (Auto) 0.300 Neut % (Auto) 75.4 H Lymph % (Auto) 11.3 L [place] % (Auto) 9.2 Eos % (Auto) 2.9 Baso % (Auto) 0.9 Absolute Neuts (auto) 9.6 H Absolute Lymphs (auto) 1.44 Nucleated RBC % 0 Sodium 132 L Potassium 4.1 Chloride 100 Carbon Dioxide 25.0 Anion Gap 7 BUN 6 L Creatinine 0.59 Estim Creat Clear Calc 90.17 Est GFR (MDRD) Af Amer 137 Est GFR (MDRD) Non-Af 113 BUN/Creatinine Ratio 10.2 Glucose 94 Calcium 10.3 H Total Bilirubin 0.40 AST 49 H ALT 57 H Alkaline Phosphatase 214 H Total Protein 7.3 Albumin 2.4 L Globulin 4.9 H Albumin/Globulin Ratio 0.5 L POC Glucose Micro: Microbiology 08/04/20 17:00 Nasal Secretion SARS-CoV-2 Antigen (Rapid) - Final Physical Exam Const alert and no apparent distress General Appearance: cooperative and comfortable Resp Effort and Inspection: able to speak in complete sentences Extremity normal capillary refill and no calf tenderness Extremity Narrative: Posterior splint to right lower extremity clean dry and intact. Toes are of normal color with normal capillary refill time and normal temperature. No calf pain bilateral, calf soft and supple bilateral with no evidence of DVT. General Extremity: Negative for clubbing or cyanosis Neuro Sensory Exam: extremities light-touch: decreased Psych Appearance: appropriate Attitude: calm Assessment & Plan Assessment/Plan (1) Closed trimalleolar fracture of right ankle: QUALIFIERS: Encounter type: initial encounter Qualified Code(s): S82.851A - Displaced trimalleolar fracture of right lower leg, initial encounter for closed fracture (2) Type 2 diabetes mellitus: QUALIFIERS: Diabetes mellitus complication status: with neurologic complications Diabetes mellitus complication detail: with polyneuropathy Diabetes mellitus alf insulin use: with alf use Qualified Code(s): E11.42 - Type 2 diabetes mellitus with diabetic polyneuropathy; Z79.4 - [facility] (current) use of insulin (3) Morbid obesity: (4) Vitamin D deficiency: (5) Tobacco abuse: PLAN: Patient is status post ORIF right ankle fracture from 08-05-[address] Del Angel. Patient seen and examined bedside appearing comfortable without obvious signs of distress. Patient noted to right ankle trimalleolar fracture which is currently in a posterior splint after surgery. Dressing/splint was kept clean, dry and intact. Continue with pain management, currently pain controlled. Patient has significant risk factors for delayed healing including smoking about 2 packs a day of cigarettes, hemoglobin A1c of 10.2 on 06/01/2020, history of vitamin D deficiency, morbid obesity along with her history of delayed healing to her other ankle and incision healing complications. Counseled patient importance of smoking cessation, blood glucose control, offloading and proper diet to best optimize her for wound and bone healing. Patient on anticoagulation - She is currently on Lovenox. Nursing facility placement is pending. Podiatry will continue to follow. Please contact if any questions or concerns. Patient should follow up with 1 week of discharge at [facility] with Dr. Del Angel
--- NOTE | 2020-08-09 09:42 | PCM.PN.HOSP ---
Subjective Subjective Patient with no acute events overnight per self and per nursing report. Patient was very sluggish this morning noting that she normally does not get up until past 10 AM. She notes only complaint mild right ankle discomfort but does not request any alteration to her regimen at this time with as noted prior to discontinuation of any IV regimen and oral as needed only. Discussed plan of care which included planned repeat dressing change per podiatry on Monday and transition to skilled following. Patient denies fevers, chills, nausea, emesis, abdominal pain, chest pain or dyspnea. Objective Data Objective Data Vital Signs: Vital Signs Temp Pulse Resp BP Pulse Ox 98.0 F 70 18 132/54 H 97 08/09/20 08:30 08/09/20 08:30 08/09/20 08:30 08/09/20 08:30 08/09/20 08:30 Oxygen Flow Rate (L/min) 3 Oxygen Delivery Method [2] Nasal Cannula Oxygen Delivery Method [1 ( Nasal Cannula Initial Baseline)] Oxygen Delivery Method Room Air Weight: 234 lb 15.992 oz Body Mass Index (BMI) 41.6 Intake & Output: Intake and Output for Last 24 Hours 08/07/20 08/08/20 08/09/20 23:59 23:59 23:59 Intake Total 3820 / 3820 400 / 400 Output Total 5100 / 5100 2425 / 2425 1050 / 1050 Balance -1280 / -1280 -2025 / -2025 -1050 / -1050 Lab / Micro Data Result Diagrams: 08/09/20 05:32 08/09/20 05:32 Labs: Laboratory Results - last 24 hr 08/08/20 08/08/20 08/08/20 13:34 16:51 21:44 WBC RBC Hgb Hct MCV MCH MCHC RDW Std Deviation RDW Coeff of Kaycee Plt Count MPV Immature Gran % (Auto) Neut % (Auto) Lymph % (Auto) [place] % (Auto) Eos % (Auto) Baso % (Auto) Absolute Neuts (auto) Absolute Lymphs (auto) Nucleated RBC % Sodium Potassium Chloride Carbon Dioxide Anion Gap BUN Creatinine Estim Creat Clear Calc Est GFR (MDRD) Af Amer Est GFR (MDRD) Non-Af BUN/Creatinine Ratio Glucose Calcium Total Bilirubin AST ALT Alkaline Phosphatase Total Protein Albumin Globulin Albumin/Globulin Ratio POC Glucose 192 H 82 115 H 08/09/20 08/09/20 05:32 05:32 WBC 12.7 H RBC 4.09 L Hgb 12.8 Hct 37.8 MCV 92.4 MCH 31.3 MCHC 33.9 D RDW Std Deviation 43.7 RDW Coeff of Kaycee 12.9 Plt Count 355 MPV 9.6 Immature Gran % (Auto) 0.300 Neut % (Auto) 75.4 H Lymph % (Auto) 11.3 L [place] % (Auto) 9.2 Eos % (Auto) 2.9 Baso % (Auto) 0.9 Absolute Neuts (auto) 9.6 H Absolute Lymphs (auto) 1.44 Nucleated RBC % 0 Sodium 132 L Potassium 4.1 Chloride 100 Carbon Dioxide 25.0 Anion Gap 7 BUN 6 L Creatinine 0.59 Estim Creat Clear Calc 90.17 Est GFR (MDRD) Af Amer 137 Est GFR (MDRD) Non-Af 113 BUN/Creatinine Ratio 10.2 Glucose 94 Calcium 10.3 H Total Bilirubin 0.40 AST 49 H ALT 57 H Alkaline Phosphatase 214 H Total Protein 7.3 Albumin 2.4 L Globulin 4.9 H Albumin/Globulin Ratio 0.5 L POC Glucose Micro: Microbiology 08/04/20 17:00 Nasal Secretion SARS-CoV-2 Antigen (Rapid) - Final Physical Exam Narrative Physical Examination: General: awake, alert, oriented x 3 and cooperative, seated upright in the PCU bed, NAD, fatigued. Skin: normal color, normal turgor, no icterus, no cyanosis except R ankle with dressing in place, elevated, no drainage noted. HEENT: AT/NC, EOMI, PERRLA, MMM. Lungs: CTA bilaterally, moderate effort, mild decrease BL bases, no rales, ronchi or wheezing. Heart: Regular rate and rhythm; no gallop, rub audible. Abdomen: soft, morbidly obese, NTTP, ND, mildly hyperactive BS. Extremities: no cyanosis, no clubbing, mild L ankle edema, R ankle w/ dressing in place as noted. Neurological: patient awake, alert, oriented x 3, cognitive function intact; pupils equally reactive to light and accommodation, cranial nerves II-XII grossly normal, moving all 4 extremities although notably limited RLE given discomfort w/ movement, strength accordingly moderately decreased, improving but reticent to move. Psychiatric: affect appears normal, no acute evidence of depressive or anxiety feelings. Assessment & Plan Assessment/Plan (1) Closed trimalleolar fracture of right ankle: QUALIFIERS: Encounter type: initial encounter Qualified Code(s): S82.851A - Displaced trimalleolar fracture of right lower leg, initial encounter for closed fracture PLAN: The patient is a 54 y/o F w/ PMHx: Morbid Obesity, HTN, HLD, CAD s/p PCI, Chronic COPD, Diabetes mellitus type II with peripheral neuropathy, Hx PE, Anxiety and Depression/Bipolar disorder, GERD who presents to the [facility] on 07/30/20 with near syncopal event with R ankle debility and pain following her fall. 1. Near syncopal event with hypotension: Patient with likely fall and acute traumatic trimalleolar fracture of the right ankle secondary to this event, blood pressure and heart rate have improved, currently maintained on telemetry with noted initially mild sinus tachycardia improved on the metoprolol succinate with dose increased to 75 mg daily with appropriate BPs following, patient BP regimen notable adjusted with hold on diuretic and ACEI with improvement of her symptoms as well as BP. If BP elevates may consider ACEI re-addition if needed. PT/OT/CM with planned SNF placement Monday. 2. Acute traumatic trimalleolar fracture of the right ankle: Secondary to mechanical fall, podiatry consulted and following, status post OR 08/05 with OREF of the right ankle, dressing changed per podiatry 08/08/2020 with planned repeat dressing change Monday prior to skilled facility placement pending pre-CERT, initially on aggressive IV and oral pain regimen, have now de-escalate it off IV pain regimen and will lengthen time of oral regimen given concerns. Continue dressing changes per podiatry and wound RN, elevation. Planned Monday dressing change per Dr. Mitchell, repeat 1 week follow-up following discharge to SNF also. 3. Diabetes mellitus type II with hyperglycemia with peripheral neuropathy: Noted hemoglobin A1c 8.1%, given hyperglycemia during admission long-acting insulin and short-acting both increased, ADA diet, accu checks w/ ISS, continue home Lyrica regimen. 4. CAD: Status post PCI history, last 2007, initially Plavix held for surgery, cleared for resumption per podiatry, will continue beta-camila as noted. 5. Hypertension: Continue home regimen including metoprolol, Norvasc with hold parameters as needed, PRN hydralazine. If BP elevates may consider re-addition of ACEI. 6. Hyperlipidemia: We will continue home statin therapy. 7. Chronic COPD: Maintain on ATC duonebs, PRN albuterol, HOB, IS parameters. 8. History of pulmonary emboli: Initially Eliquis had been held, transitioned to Lovenox, now eliquis cleared for restart. 9. Anxiety and depression/Bipolar disorder: We will continue patient home trazodone, Risperdal, BuSpar and Xanax regimen. 10. Morbid Obesity: Weight loss and lifestyle changes encouraged, nutrition consulted. 11. GERD, history of GI bleed/ulcers: Continue patient home famotidine and Carafate regimen. 12. DVT prophylaxis: SCD to left lower extremity, restarted on home eliquis regimen. Charges/Coding Visit Charges Inpatient E&M: 91966 Subs Hosp L2
[2020-08-09] MEDS: Clopidogrel Bisulfate 75 MG Tablet PO (09:50)
[2020-08-09] MEDS: Famotidine 20 MG Tablet PO ×2 (09:50→21:10)
[2020-08-09] MEDS: busPIRone 15 MG TABLET 30 MG PO ×2 (09:51→21:10)
[2020-08-09] MEDS: APIXABAN 5 MG TABLET PO ×2 (09:51→21:09)
[2020-08-09] MEDS: Mirabegron 25 MG TAB.ER.24H PO (09:51)
[2020-08-09] MEDS: Metoprolol(XL)Succ 25 MG Tablet 75 MG PO (09:51)
[2020-08-09] MEDS: amLODIPine 2.5 MG Tablet PO (09:52)
[2020-08-09] MEDS: Polyethylene Glycol 3350 17 GM PACKET PO ×2 (09:53→21:10)
[2020-08-09 10:05] LABS: Bedside Glucose 119 mg/dL (70-110)
[2020-08-09] MEDS: Insulin Lispro 100 UNIT/ML INSULN.PEN 10 UNIT SC (10:36)
[2020-08-09 12:10] LABS: Bedside Glucose 186 mg/dL (70-110)
[2020-08-09] MEDS: Ipratropium/Albuterol Sulfate 3 ML AMPUL.NEB INHALATION ×2 (13:01→19:14)
[2020-08-09 17:05] LABS: Bedside Glucose 88 mg/dL (70-110)
[2020-08-09] MEDS: RisperiDONE 2 MG Tablet 4 MG PO (21:09)
[2020-08-09] MEDS: Montelukast 10 MG Tablet PO (21:09)
[2020-08-09] MEDS: Atorvastatin Calcium 80 MG Tablet PO (21:10)
[2020-08-09] MEDS: traZODone 100 MG Tablet 200 MG PO (21:10)
[2020-08-09 21:55] LABS: Bedside Glucose 145 mg/dL (70-110)
[2020-08-10] VITALS (7 sets, daily range): BP systolic 139–170; BP diastolic 70–78; PULSE 66–86; RESP 16–18; TEMP 36.1–36.8; O2SAT 94–98
[2020-08-10] MEDS: HYDROmorphone 2 MG TABLET PO ×5 (02:46→20:49)
[2020-08-10 06:00] LABS: Absolute Lymphocyte Count 1.84 X10^3/uL (0.83-4.51); Absolute Neutrophil Count 4.3 X10^3/uL (2.0-7.7); Basophil# 0.05 X10^3/uL; Basophil% 0.7 % (0-1); Eosinophil# 0.11 X10^3/uL; Eosinophils% 1.5 % (0-5); Hematocrit 39.9 % (37-47); Hemoglobin 12.3 g/dL (12.0-15.0); Lymphocyte # 1.84 X10^3/ul (0.83-4.51); Lymphocyte % 25.8 % (19-41); Mean Corp Hgb Conc 30.8 g/dL (32-36); Mean Corpuscular Hgb 30.7 pg (27.0-32.0); Mean Corpuscular Volume 99.5 fL (81-99); Mean Platelet Vol. 11.9 fl (6.2-12.0); Monocyte# 0.63 X10^3/uL; Monocyte% 8.8 % (0-10); NRBC Flagged by Analyzer 0 % (0-5); Neutrophil # 4.26 X10^3/uL (2.7-7.7); Neutrophil % 59.7 % (47-70); POSITIVE MORPHOLOGY YES; Platelet Count 254 K/mm3 (150-450); RBC Distribution Width CV 13.4 % (11.6-14.6); RBC Distribution Width SD 48.9 fl (35.1-43.9); Red Blood Count 4.01 M/mm3 (4.2-5.4); White Blood Count 7.1 K/mm3 (4.4-11.0)
[2020-08-10 06:08] LABS: Differential Indicated SCAN CRITERIA MET
[2020-08-10] MEDS: Sucralfate 1 GM Tablet PO ×4 (06:23→21:23)
[2020-08-10] MEDS: tiZANidine HCl 2 MG Tablet 6 MG PO ×2 (06:23→15:31)
[2020-08-10 06:24] LABS: ALB/GLOB Ratio 0.7 RATIO (0.9-2.4); AST(SGOT) 56 U/L (15-37); Alanine Aminotransfer ALT/SGPT 55 U/L (13-56); Albumin, Serum 2.5 g/dL (3.2-5.0); Alkaline Phosphatase 190 U/L (45-117); Anion Gap 7 (5-15); BUN 7 mg/dL (7-18); BUN/Creat Ratio 10.3 RATIO (10-20); Calcium,Total 9.4 mg/dL (8.5-10.1); Chloride 100 mmol/L (98-107); Creatinine, Serum 0.68 mg/dL (0.55-1.02); EST Glomerular Filtration Rate 96 mL/min (>60); Est Glom Filt Rate - Afr Amer 116 mL/min (>60); Estimated Creatinine Clearance 78.24 ml/min; Globulin 3.5 g/dL (2.2-4.2); Glucose 119 mg/dL (74-106); Potassium 4.7 mmol/L (3.5-5.1); Sodium Level 135 mmol/L (136-145)
[2020-08-10] MEDS: Pregabalin 75 MG Capsule PO ×3 (06:24→21:23)
[2020-08-10] MEDS: ALPRAZolam 0.5 MG Tablet PO ×3 (06:24→17:23)
[2020-08-10] MEDS: Dicyclomine 10 MG Capsule 20 MG PO ×3 (06:24→15:31)
[2020-08-10 06:25] LABS: Atypical Lymphocyte 1+ %
[2020-08-10] MEDS: Menthol/Lanolin/Calamine/Znox 113 GM Tube 1 APPLIC TOPICAL ×3 (06:26→21:23)
--- NOTE | 2020-08-10 06:38 | PN_ITS ---
Subjective Subjective Patient was seen this morning s/p right ankle ORIF. She is resting in bed with no complaints. Her pain is rated at worst 8/10/. She relates dressing/splint right foot/ankle/leg is tight. She denies fever, chills, nausea, vomiting, chest pain, calf pain. She relates shortness of breath and is taking a breathing treatment at this time. Objective Data Objective Data Vital Signs: Vital Signs Temp Pulse Resp BP Pulse Ox 97.0 F L 66 16 139/70 H 96 08/10/20 02:30 08/10/20 02:30 08/10/20 02:30 08/10/20 02:30 08/10/20 02:30 Oxygen Flow Rate (L/min) 3 Oxygen Delivery Method [2] Nasal Cannula Oxygen Delivery Method [1 ( Nasal Cannula Initial Baseline)] Oxygen Delivery Method Nasal Cannula Weight: 106.594 kg Body Mass Index (BMI) 41.6 Intake & Output: Intake and Output for Last 24 Hours 08/08/20 08/09/20 08/10/20 23:59 23:59 23:59 Intake Total 400 / 400 960 / 1260 300 / 300 Output Total 2425 / 2425 2550 / 3050 500 / 500 Balance -2025 / -2025 -1590 / -1790 -200 / -200 Lab / Micro Data Result Diagrams: 08/10/20 05:08 08/10/20 05:08 Labs: Laboratory Results - last 24 hr 08/09/20 08/09/20 08/09/20 05:32 09:40 12:04 WBC 12.7 H RBC 4.09 L Hgb 12.8 Hct 37.8 MCV 92.4 MCH 31.3 MCHC 33.9 D RDW Std Deviation 43.7 RDW Coeff of Kaycee 12.9 Plt Count 355 MPV 9.6 Immature Gran % (Auto) 0.300 Neut % (Auto) 75.4 H Lymph % (Auto) 11.3 L [place] % (Auto) 9.2 Eos % (Auto) 2.9 Baso % (Auto) 0.9 Absolute Neuts (auto) 9.6 H Absolute Lymphs (auto) 1.44 Nucleated RBC % 0 Atypical Lymphocytes Sodium Potassium Chloride Carbon Dioxide Anion Gap BUN Creatinine Estim Creat Clear Calc Est GFR (MDRD) Af Amer Est GFR (MDRD) Non-Af BUN/Creatinine Ratio Glucose Calcium Total Bilirubin AST ALT Alkaline Phosphatase Total Protein Albumin Globulin Albumin/Globulin Ratio POC Glucose 119 H 186 H 08/09/20 08/09/20 08/10/20 16:30 21:06 05:08 WBC 7.1 RBC 4.01 L Hgb 12.3 Hct 39.9 MCV 99.5 H D MCH 30.7 MCHC 30.8 L D RDW Std Deviation 48.9 H RDW Coeff of Kaycee 13.4 Plt Count 254 MPV 11.9 Immature Gran % (Auto) 3.500 H Neut % (Auto) 59.7 Lymph % (Auto) 25.8 [place] % (Auto) 8.8 Eos % (Auto) 1.5 Baso % (Auto) 0.7 Absolute Neuts (auto) 4.3 Absolute Lymphs (auto) 1.84 Nucleated RBC % 0 Atypical Lymphocytes 1+ Sodium Potassium Chloride Carbon Dioxide Anion Gap BUN Creatinine Estim Creat Clear Calc Est GFR (MDRD) Af Amer Est GFR (MDRD) Non-Af BUN/Creatinine Ratio Glucose Calcium Total Bilirubin AST ALT Alkaline Phosphatase Total Protein Albumin Globulin Albumin/Globulin Ratio POC Glucose 88 145 H 08/10/20 05:08 WBC RBC Hgb Hct MCV MCH MCHC RDW Std Deviation RDW Coeff of Kaycee Plt Count MPV Immature Gran % (Auto) Neut % (Auto) Lymph % (Auto) [place] % (Auto) Eos % (Auto) Baso % (Auto) Absolute Neuts (auto) Absolute Lymphs (auto) Nucleated RBC % Atypical Lymphocytes Sodium 135 L Potassium 4.7 Chloride 100 Carbon Dioxide 28.0 Anion Gap 7 BUN 7 Creatinine 0.68 Estim Creat Clear Calc 78.24 Est GFR (MDRD) Af Amer 116 Est GFR (MDRD) Non-Af 96 BUN/Creatinine Ratio 10.3 Glucose 119 H Calcium 9.4 Total Bilirubin 0.70 AST 56 H ALT 55 Alkaline Phosphatase 190 H Total Protein 6.0 L Albumin 2.5 L Globulin 3.5 Albumin/Globulin Ratio 0.7 L POC Glucose Micro: Microbiology 08/04/20 17:00 Nasal Secretion SARS-CoV-2 Antigen (Rapid) - Final Physical Exam Const alert and no apparent distress General Appearance: cooperative and comfortable Resp Effort and Inspection: able to speak in complete sentences Extremity normal capillary refill and no calf tenderness Extremity Narrative: Posterior splint to right lower extremity clean dry and intact. Toes are of normal color with normal capillary refill time and normal temperature. No calf pain bilateral, calf soft and supple bilateral with no evidence of DVT. General Extremity: Negative for clubbing or cyanosis Skin Skin Narrative: Incisions medial lateral right ankle are well aligned and coapted without gapping or erythema or streaking or purulence or june necrosis. There is some lateral ankle central dusky transition noted without bogginess or fluctuance. No odor. General Skin Exam: atrophy and dry skin; Negative for ecchymosis, erythema, eschar, pallor or dermatitis Rashes: no rashes Neuro Sensory Exam: extremities light-touch: decreased Psych Appearance: appropriate Attitude: calm Assessment & Plan Assessment/Plan (1) Closed trimalleolar fracture of right ankle: QUALIFIERS: Encounter type: initial encounter Qualified Code(s): S82.851A - Displaced trimalleolar fracture of right lower leg, initial encounter for closed fracture (2) Type 2 diabetes mellitus: QUALIFIERS: Diabetes mellitus complication status: with neurologic complications Diabetes mellitus complication detail: with polyneuropathy Diabetes mellitus fci insulin use: with director specialty use Qualified Code(s): E11.42 - Type 2 diabetes mellitus with diabetic polyneuropathy; Z79.4 - [employer] [place] (current) use of insulin (3) Morbid obesity: (4) Vitamin D deficiency: (5) Tobacco abuse: PLAN: Patient is status post ORIF right ankle fracture from 08-05-[address] Del Angel. Patient seen and examined bedside appearing comfortable without obvious signs of distress. Patient noted to right ankle trimalleolar fracture which is currently in a posterior splint after surgery. Dressing changes morning with Betadine wet-to-dry gauze with additional multilayer compression dressing. There is reduced drainage in her limb appears to be stable. The next dressing change will be planned for approximately 1 week. Continue with pain management, currently pain controlled. Patient has significant risk factors for delayed healing including smoking about 2 packs a day of cigarettes, hemoglobin A1c of 10.2 on 06/01/2020, history of vitamin D deficiency, morbid obesity along with her history of delayed healing to her other ankle and incision healing complications. Counseled patient imp ortance of smoking cessation, blood glucose control, offloading and proper diet to best optimize her for wound and bone healing. Patient on anticoagulation - She is currently on Lovenox. Nursing facility placement is pending. Podiatry will continue to follow. Please contact if any questions or concerns. Patient should follow up with 1 week of discharge at [facility] with Dr. Del Angel
[2020-08-10] MEDS: Ipratropium/Albuterol Sulfate 3 ML AMPUL.NEB INHALATION ×2 (06:49→13:03)
--- NOTE | 2020-08-10 08:56 | CASEMGMT ---
MAURO spoke w/Bianca at [facility], precert is still pending. Updates faxed, MAURO will continue to follow. SUSSY [place]
[2020-08-10] MEDS: Metoprolol(XL)Succ 25 MG Tablet 75 MG PO (09:03)
[2020-08-10] MEDS: busPIRone 15 MG TABLET 30 MG PO ×2 (09:04→21:23)
[2020-08-10] MEDS: APIXABAN 5 MG TABLET PO ×2 (09:04→21:23)
[2020-08-10] MEDS: Famotidine 20 MG Tablet PO ×2 (09:04→21:23)
[2020-08-10] MEDS: Clopidogrel Bisulfate 75 MG Tablet PO (09:04)
[2020-08-10] MEDS: Mirabegron 25 MG TAB.ER.24H PO (09:05)
[2020-08-10] MEDS: Polyethylene Glycol 3350 17 GM PACKET PO ×2 (09:05→21:23)
[2020-08-10 09:10] LABS: Bedside Glucose 102 mg/dL (70-110)
[2020-08-10] MEDS: Acetaminophen 325 MG Tablet 650 MG PO (09:10)
[2020-08-10] MEDS: amLODIPine 2.5 MG Tablet PO (09:11)
--- NOTE | 2020-08-10 11:23 | CASEMGMT ---
Pt informed RN she does not want to go to [facility] if she is not in a private room, wants [facility]. SW called [facility], pt would be isolated for 14 days and then will be in a shared room. SW called [facility], they take pt's insurance and have private rooms. SW spoke w/pt, explained we started precert already w/[facility] but explained all of the above information. [facility] SW faxed referral to [facility]. [facility] then called and Bianca stated they do have a private room. SW let pt know, she would rather go to [facility] if she has a private room. SW called [facility] to cancel the referral. SW will continue to follow. SUSSY [place]
[2020-08-10] MEDS: Insulin Lispro 100 UNIT/ML INSULN.PEN SC ×2 (11:34→17:16)
[2020-08-10] MEDS: Insulin Lispro 100 UNIT/ML INSULN.PEN 10 UNIT SC ×2 (11:34→17:17)
[2020-08-10 11:41] LABS: Bedside Glucose 229 mg/dL (70-110)
--- NOTE | 2020-08-10 14:26 | CASEMGMT ---
SW spoke w/Bianca from [facility], insurance wanted PT notes from today. Clarification received from doctor regarding weight bearing status of LLE, PT aware. SW faxed new PT/OT notes from today to [facility] and faxed the physician communication as well to [facility] regarding weight bearing status. SUSSY [place]
--- NOTE | 2020-08-10 15:41 | CASEMGMT ---
Addendum entered by Lety Bojorquez 08/10/20 15:50: SW spoke w/Bianca at [facility], they are having a COVID vaccine clinic on the and pt should be able to get her second vaccine at that time. SW attempted to let pt know, she is sleeping. SW let her nurse know, she will inform pt. SUSSY [place] Original Note: Pt has had one COVID vaccine and would like to get the second. She had Moderna on 07/08/20. SW called [facility], message left inquiring if they are able to give pt the second vaccine. SUSSY [place]
[2020-08-10 17:21] LABS: Bedside Glucose 163 mg/dL (70-110)
[2020-08-10] MEDS: traZODone 100 MG Tablet 200 MG PO (21:23)
[2020-08-10] MEDS: Atorvastatin Calcium 80 MG Tablet PO (21:23)
[2020-08-10] MEDS: RisperiDONE 2 MG Tablet 4 MG PO (21:23)
[2020-08-10] MEDS: Montelukast 10 MG Tablet PO (21:23)
[2020-08-10 22:50] LABS: Bedside Glucose 121 mg/dL (70-110)
[2020-08-11 02:30] VITALS: BP 155/55; PULSE 83; RESP 18; TEMP 36.9; O2SAT 95
[2020-08-11] MEDS: Sucralfate 1 GM Tablet PO ×2 (06:29→10:45)
[2020-08-11] MEDS: Pregabalin 75 MG Capsule PO (06:29)
[2020-08-11] MEDS: Menthol/Lanolin/Calamine/Znox 113 GM Tube 1 APPLIC TOPICAL (06:29)
[2020-08-11] MEDS: Dicyclomine 10 MG Capsule 20 MG PO ×2 (06:30→10:45)
[2020-08-11 06:36] LABS: Bedside Glucose 120 mg/dL (70-110)
[2020-08-11] MEDS: tiZANidine HCl 2 MG Tablet 6 MG PO (06:36)
[2020-08-11] MEDS: HYDROmorphone 2 MG TABLET PO ×2 (06:40→10:45)
--- NOTE | 2020-08-11 07:17 | PN.HOSP_ITS ---
Subjective Subjective Late entry note: Patient was seen on 08/10/20 morning. She denied any complaints. Pain is fairly controlled. We are waiting on discharge planning to custodial facility. Discussed with social worker clinical, submission to residential of choice to be started. Objective Data Objective Data Vital Signs: Vital Signs Temp Pulse Resp BP Pulse Ox 98.5 F 83 18 155/55 H 95 08/11/20 02:30 08/11/20 02:30 08/11/20 02:30 08/11/20 02:30 08/11/20 02:30 Oxygen Flow Rate (L/min) 3 Oxygen Delivery Method [2] Nasal Cannula Oxygen Delivery Method [1 ( Nasal Cannula Initial Baseline)] Oxygen Delivery Method Nasal Cannula Weight: 106.594 kg Body Mass Index (BMI) 41.6 Intake & Output: Intake and Output for Last 24 Hours 08/09/20 08/10/20 08/11/20 23:59 23:59 23:59 Intake Total 960 / 1260 940 / 940 Output Total 2550 / 3050 4450 / 4450 850 / 850 Balance -1590 / -1790 -3510 / -3510 -850 / -850 Lab / Micro Data Result Diagrams: 08/10/20 05:08 08/10/20 05:08 Labs: Laboratory Results - last 24 hr 08/10/20 08/10/20 08/10/20 08:53 11:33 17:15 POC Glucose 102 229 H 163 H 08/10/20 08/11/20 21:23 06:28 POC Glucose 121 H 120 H Micro: Microbiology 08/04/20 17:00 Nasal Secretion SARS-CoV-2 Antigen (Rapid) - Final Physical Exam Narrative General: Alert, Oriented x3, Cooperative, No apparent distress HEENT: Atraumatic, PERRLA, EOMI, Normocephalic Oral: Moist Mucosa Neck: Supple Lungs: Normal air movement, Diminished Cardiovascular: Regular rate, Regular Rhythm, Normal S1, Normal S2, No murmurs Abdomen: Bowel Sounds Present, Soft, Non Tender, Non-Distended, No Hepato- splenomegaly Extremities: Right lower extremity in Robbi wrap and splint. Assessment & Plan Assessment/Plan (1) Closed trimalleolar fracture of right ankle: QUALIFIERS: Encounter type: initial encounter Qualified Code(s): S82.851A - Displaced trimalleolar fracture of right lower leg, initial encounter for closed fracture (2) Morbid obesity with BMI of 45.0-49.9, adult: (3) RACHEL (obstructive sleep apnea): (4) Benign essential hypertension: (5) Gastroesophageal reflux disease: QUALIFIERS: Esophagitis presence: with esophagitis Esophagitis bl eeding: without hemorrhage Qualified Code(s): K21.00 - Gastro-esophageal reflux disease with esophagitis, without bleeding (6) Type 2 diabetes mellitus: QUALIFIERS: Diabetes mellitus complication status: with neurologic complications Diabetes mellitus complication detail: with polyneuropathy Diabetes mellitus computer terminal operator insulin use: with care home use Qualified Code(s): E11.42 - Type 2 diabetes mellitus with diabetic polyneuropathy; Z79.4 - bed bug exterminator (current) use of insulin (7) Near syncope: PLAN: Patient continues to improve. Blood sugars are fairly controlled We will continue current pain medications Follow-up with discharge planning Charges/Coding Visit Charges Inpatient E&M: 78673 Subs Hosp L2
[2020-08-11 07:59] VITALS: O2SAT 95
[2020-08-11 08:30] VITALS: BP 139/56; PULSE 75; RESP 16; TEMP 37.1; O2SAT 96
[2020-08-11] MEDS: ALPRAZolam 0.5 MG Tablet PO (08:42)
[2020-08-11] MEDS: APIXABAN 5 MG TABLET PO (08:42)
[2020-08-11] MEDS: Clopidogrel Bisulfate 75 MG Tablet PO (08:43)
[2020-08-11] MEDS: busPIRone 15 MG TABLET 30 MG PO (08:43)
[2020-08-11] MEDS: Mirabegron 25 MG TAB.ER.24H PO (08:43)
[2020-08-11] MEDS: amLODIPine 2.5 MG Tablet PO (08:43)
[2020-08-11 08:44] VITALS: PULSE 75
[2020-08-11] MEDS: Metoprolol(XL)Succ 25 MG Tablet 75 MG PO (08:44)
[2020-08-11] MEDS: Famotidine 20 MG Tablet PO (08:44)
--- NOTE | 2020-08-11 09:23 | CASEMGMT ---
MAURO received a call from Bianca at [facility] and patient was approved. MAURO notified physician and bilingual secretary. Plan: d/c to [facility] under skilled level of care. Aliya STUBBS
--- NOTE | 2020-08-11 09:57 | TREXTCAR_ITS ---
Diet 08/05/20 12:17 Diet: Carbohydrate Controlled Type of Dietary Supplement:: Glucerna w/ breakfast Is pt able to select menu?: Yes Wound(s) Left Knee: Wound Type: Abrasion bilat buttocks: Wound Type: Scattered scratches RIGHT ANKLE: Wound Type: Surgical Incision Therapies Weight Bearing: Non weight bearing Problem/Diagnosis (1) Closed trimalleolar fracture of right ankle: Status: Acute Allergies/Procedures Done in Hospital Allergies amoxicillin Allergy (Verified 07/30/20 18:33) Itching erythromycin base Allergy (Verified 07/30/20 18:33) Unknown methadone Allergy (Verified 07/30/20 18:33) Itching metolazone Allergy (Verified 07/30/20 18:33) Unknown Penicillins Allergy (Verified 07/30/20 18:33) Hives Sulfa (Sulfonamide Antibiotics) Allergy (Verified 06/22/20 14:14) Hives clarithromycin [From Biaxin] Adverse Reaction (Verified 07/30/20 18:33) Nausea ibuprofen Adverse Reaction (Verified 07/30/20 18:33) 3 BLEEDING ULCERS 3 BLEEDING ULCERS morphine Adverse Reaction (Verified 07/30/20 18:33) HEADACHE HEADACHE oxycodone [From Percocet] Adverse Reaction (Verified 07/30/20 18:33) Itching Type of Care/Length of Stay Estimated LOS: Convalescent Care Less Than 30 days Type of Care Needed: Skilled Rehab Potential: Good Prognosis: Good Additional Orders/Day of Discharge Day of Discharge: 08/11/20 Dietary and Speech Recommendations Dietitian Recommendations/Changes: Continue CHO controlled diet. Continue glucerna shake 1x/day at breakfast. Discharge Plan Admission Admit Date/Time: 07/30/20 21:53 Primary Reason for Your Visit: Fall, right trimalleolar fracture Attending Provider: Gloria James Primary Care Provider: Janel Taylor Consulting Providers: Roxane Del Angel Instructions Patient Instructions: Treating Ankle Fractures, Why Do You Smoke?, Health Effects of Smoking, Kicking the Smoking Habit Additional Instructions / Restrictions: Maintain non weightbearing status right lower extremity with use of assistive device. Keep splint and dressing to right lower extremity clean, dry, and intact until follow up with Dr. Del Angel by 08/17/20. Weightbear as tolerated with supportive shoe left lower extremity. Elevate lower extremities while at rest. Discontinue tobacco habits to optimize healing. Discharge Orders/Prescriptions Prescriptions: New insulin lispro [Humalog KwikPen Insulin] 100 unit/mL Insulin Pen 10 unit subcut TIDAC Qty: 0 RF: 0 amlodipine 2.5 mg Tablet 2.5 mg PO DAILY Qty: 0 RF: 0 metoprolol succinate 25 mg Tablet Extended Release 24 Hr 75 mg PO DAILY Qty: 30 RF: 0 insulin lispro [Humalog KwikPen Insulin] 100 unit/mL Insulin Pen See Protocol unit subcut ACHS Qty: 0 RF: 0 ipratropium-albuterol 0.5 mg-3 mg(2.5 mg base)/3 mL Solution For Nebulization 3 ml inhalation Q6H.RT Qty: 90 RF: 0 nicotine 21 mg/24 hr Patch 24 Hour 21 mg transdermal DAILY Qty: 0 RF: 0 Calmoseptine 0.44-20.6 % Ointment 1 applic topical TID Qty: 0 RF: 0 sennosides-docusate sodium [Stool Softener-Stimulant Laxat] 8.6-50 mg Tablet 2 tab PO BID PRN PRN (Reason: Constipation) Qty: 0 RF: 0 hydromorphone 2 mg Tablet 2 mg PO Q4H PRN PRN (Reason: Pain Score 6-10) 3 Days Qty: 12 RF: 0 Continued sucralfate 1 gram tablet 1 g PO QACHS RF: 0 atorvastatin 80 MG tablet 80 mg PO QHS RF: 0 nitroglycerin 0.4 MG tablet, sublingual 0.4 mg SL PRN PRN (Reason: Cardiac/Chest Pain) RF: 0 risperidone 4 mg tablet 4 mg PO QHS RF: 0 trazodone 100 MG tablet 200 mg PO QHS RF: 0 pregabalin 75 MG capsule 75 mg PO TID RF: 0 tizanidine 4 MG tablet 6 mg PO TID PRN PRN (Reason: Spasms) RF: 0 buspirone 30 mg tablet 30 mg PO BID RF: 0 furosemide 20 MG tablet 20 mg PO DAILY RF: 0 mirabegron 25 MG tablet extended release 24 hr 25 mg PO DAILY RF: 0 lisinopril 20 MG tablet 20 mg PO QHS RF: 0 apixaban 5 MG tablet 5 mg PO BID RF: 0 acidophilus-pectin, citrus 1 TABLET tablet 2 tab PO BID RF: 0 insulin glargine 100 UNITS/ML insulin pen 40 units SC BID RF: 0 polyethylene glycol 3350 17 GM packet 17 gm PO BID Qty: 60 RF: 0 baclofen 10 MG tablet 10 mg PO TID RF: 0 albuterol sulfate 1 PUFF inhaler 2 puff IH Q6H PRN PRN (Reason: SOB &/or Wheezing ) RF: 0 fluticasone propion-salmeterol 1 PUFF inhaler 2 puff IH Q12 RF: 0 dicyclomine 10 MG capsule 20 mg PO TIDAC Qty: 10 RF: 0 metoclopramide HCl 10 MG tablet 10 mg PO 4X/DAY PRN (Reason: Headache) Qty: 20 RF: 0 clopidogrel 75 mg tablet RF: 0 alprazolam 0.5 MG tablet 0.5 mg PO TID PRN PRN (Reason: Anxiety) 3 Days Qty: 9 RF: 0 tiotropium bromide 2.5 mcg/actuation mist 2 puff INHALATION DAILY Qty: 4 RF: 3 montelukast 10 mg tablet 10 mg PO QHS Qty: 30 RF: 5 albuterol sulfate 2.5 mg /3 mL (0.083 %) solution for nebulization 2.5 mg INHALATION Q4H PRN (Reason: Sob &/Or Wheezing) Qty: 180 RF: 3 Discontinued amlodipine 10 MG tablet 10 mg PO DAILY RF: 0 promethazine 25 MG tablet 12.5 - 25 mg PO BID PRN PRN (Reason: Nausea) RF: 0 hydrocortisone 1 APPLIC cream 1 applic TOPICAL TID PRN PRN (Reason: Itching) Qty: 1 RF: 0 menthol-zinc oxide 1 APPLIC ointment 1 applic TOPICAL BID RF: 0 metoprolol tartrate 50 MG tablet 50 mg PO DAILY RF: 0 nystatin 1 APPLIC bottle 1 applic TOPICAL BID RF: 0 sodium hypochlorite 1 APPLIC bottle 1 applic TOPICAL DAILY@1000 Qty: 1 RF: 0 insulin lispro 100 UNIT/ML insulin pen 5 unit SC TIDAC Qty: 1 RF: 0 potassium chloride 10 mEq tablet,ER particles/crystals 10 meq PO DAILY Qty: 60 RF: 3 Referrals / Follow Up: Janel Taylor MD [Primary Care Provider] - Bean,Roxane, DPM [STAFF PHYSICIAN] - Within 1 Week (s/p right ankle open reduction internal fixation) Disposition Disposition (needs filled in before D/C Order can be placed): [facility]
--- NOTE | 2020-08-11 10:39 | DS.PCM_ITS ---
Providers Date of Admission: 07/30/20 Date of Discharge: 08/11/20 Primary Care Physician: Dr. Janel Taylor MD Consultations 07/30/20 22:39 Consult: Podiatry Routine Consulting Provider: Roxane Del Angel Reason for Consult: Right ankle fracture, notified by ER physician EMERGENT Consult: No MD Notified: Yes Date Notified:: 07/30/20 Time Notified: 07:26 Method of Notification: Verbal Reason For Visit: FALL, HYPOTENSION, RIGHT ANKLE FRACTURE, ZUHAIR Diagnosis Discharge Diagnosis (1) Closed trimalleolar fracture of right ankle: Status: Acute Code(s): S82.851A - Displaced trimalleolar fracture of right lower leg, initial encounter for closed fracture Qualifiers: Encounter type: initial encounter Qualified Code(s): S82.851A - Displaced trimalleolar fracture of right lower leg, initial encounter for closed fracture (2) Near syncope: Status: Acute Code(s): R55 - Syncope and collapse (3) CAD (coronary artery disease): Status: Chronic Code(s): I25.10 - Atherosclerotic heart disease of [place] coronary artery without angina pectoris (4) Type 2 diabetes mellitus: Status: Chronic Code(s): E11.9 - Type 2 diabetes mellitus without complications Qualifiers: Diabetes mellitus complication detail: with polyneuropathy Diabetes me llitus complication status: with neurologic complications Diabetes mellitus half-way insulin use: with termite helper use Qualified Code(s): E11.42 - Type 2 diabetes mellitus with diabetic polyneuropathy; Z79.4 - snf (current) use of insulin (5) Hyperlipidemia: Status: Chronic Code(s): E78.5 - Hyperlipidemia, unspecified (6) Schizophrenia: Status: Chronic Code(s): F20.9 - Schizophrenia, unspecified (7) Morbid obesity: Status: Chronic Code(s): E66.01 - Morbid (severe) obesity due to excess calories (8) Type 2 diabetes mellitus with diabetic polyneuropathy: Status: Chronic Code(s): E11.42 - Type 2 diabetes mellitus with diabetic polyneuropathy Qualifiers: Diabetes mellitus termite helper insulin use: with half-way use Qualified Code(s): E11.42 - Type 2 diabetes mellitus with diabetic polyneuropathy; Z79.4 - long term care administrator (current) use of insulin (9) ZUHAIR (acute kidney injury): Status: Resolved Code(s): N17.9 - Acute kidney failure, unspecified (10) Tobacco abuse: Status: Chronic Code(s): Z72.0 - Tobacco use Medications at Discharge Home Medications atorvastatin 80 mg PO QHS 08/22/15 nitroglycerin 0.4 mg SL PRN PRN 11/08/16 pregabalin 75 mg PO TID 03/08/18 risperidone 4 mg PO QHS 03/08/18 tizanidine 6 mg PO TID PRN PRN 03/08/18 trazodone 200 mg PO QHS 03/08/18 furosemide 20 mg PO DAILY 11/20/18 lisinopril 20 mg PO QHS 11/20/18 mirabegron 25 mg PO DAILY 11/20/18 apixaban 5 mg PO BID 05/02/19 buspirone 30 mg tablet 30 mg PO BID tab 06/27/19 sucralfate 1 gram tablet 1 g PO QACHS 06/27/19 tiotropium bromide 2.5 mcg/actuation mist for inhalation 2 puff INHALATION DAILY #4 g 09/30/19 montelukast 10 mg tablet 10 mg PO QHS #30 tab 10/30/19 albuterol sulfate 2.5 mg INHALATION Q4H PRN #180 ml 12/11/19 acidophilus-pectin, citrus 2 tab PO BID 12/16/19 insulin glargine 40 units SC BID 12/18/19 albuterol sulfate 2 puff IH Q6H PRN PRN inhaler 01/27/20 baclofen 10 mg PO TID tab 01/27/20 fluticasone propion-salmeterol 2 puff IH Q12 inhaler 01/27/20 polyethylene glycol 3350 17 gm PO BID #60 packet 01/27/20 dicyclomine 20 mg PO TIDAC #10 cap 03/16/20 metoclopramide HCl 10 mg PO 4X/DAY PRN #20 tab 03/16/20 clopidogrel 75 mg PO DAILY 07/31/20 alprazolam 0.5 mg PO TID PRN PRN 3 Days #9 tab 08/11/20 amlodipine 2.5 mg PO DAILY #0 tab 08/11/20 hydromorphone 2 mg PO Q4H PRN PRN 3 Days #12 tab NS 08/11/20 insulin lispro [Humalog KwikPen Insulin] 10 unit SUBCUT TIDAC #0 ml 08/11/20 insulin lispro [Humalog KwikPen Insulin] See Protocol SUBCUT ACHS #0 ml 08/11/20 ipratropium-albuterol 3 ml INHALATION Q6H.RT #90 ml 08/11/20 menthol-zinc oxide [Calmoseptine] 1 applic TOPICAL TID #0 g 08/11/20 metoprolol succinate 75 mg PO DAILY #30 tab 08/11/20 nicotine 21 mg TRANSDERMAL DAILY #0 ea 08/11/20 nicotine (polacrilex) 4 mg BUCCAL Q1H PRN #100 ea 08/11/20 sennosides-docusate sodium [Stool Softener-Stimulant Laxat] 2 tab PO BID PRN PRN #0 tab 08/11/20 Hospital Course Operations - ( Open reduction internal fixation of right ankle fracture 08/05/20) Procedures None Summary of Care Provided Minutes Spent on Discharge: 50 Hospital Course: 54-year-old female with multiple comorbidities who presented after a fall. Patient stood up to go to the kitchen, felt dizzy and lightheaded and was about to pass out. She fell today floor and injured her right ankle. X-ray of the right ankle reveals trimalleolar fracture with mild lateral subluxation of the talus. Patient also had hypotension, acute kidney injury. She was admitted to the floor, managed on IV fluids. Patient was taking off her apixaban and clopidogrel. Podiatry was consulted. She had to wait till the clopidogrel was out of her system to do the surgery. Patient was taken to surgery for ORIF on 08/05. Her renal function improved back to baseline with IV fluids. Patient was seen by PT and OT and skilled for discharge back to intermediate facility. She will be followed up by podiatry. Physical Exam Narrative General: Alert, Oriented x3, Cooperative, No apparent distress HEENT: Atraumatic, PERRLA, EOMI, Normocephalic Oral: Moist Mucosa Neck: Supple Lungs: Normal air movement, Diminished Cardiovascular: Regular rate, Regular Rhythm, Normal S1, Normal S2, No murmurs Abdomen: Bowel Sounds Present, Soft, Non Tender, Non-Distended, No Hepato- splenomegaly Extremities: Right lower extremity in Robbi wrap and splint. Weight / BMI Weight Weight: 106.594 kg Body Mass Index (BMI) 41.6 ABG / Lab / Microbiology Data Result Diagrams: 08/10/20 05:08 08/10/20 05:08 Laboratory: Laboratory Results - last 24 hr 08/10/20 08/10/20 08/10/20 11:33 17:15 21:23 POC Glucose 229 H 163 H 121 H 08/11/20 06:28 POC Glucose 120 H Microbiology: Microbiology 08/11/20 09:30 SARS-CoV-2 Antigen (Rapid) - Final Mucosa - Nose Microbiology 08/11/20 09:30 Mucosa - Nose SARS-CoV-2 Antigen (Rapid) - Final 08/04/20 17:00 Nasal Secretion SARS-CoV-2 Antigen (Rapid) - Final Meaningful Use Info Meaningful Use Diagnoses (Choose all that apply): None applicable Discharge Plan Admission Admit Date/Time: 07/30/20 21:53 Primary Reason for Your Visit: Fall, right trimalleolar fracture Attending Provider: Gloria James Primary Care Provider: Janel Taylor Consulting Providers: Roxane Del Angel Instructions Patient Instructions: Treating Ankle Fractures, Why Do You Smoke?, Health Effects of Smoking, Kicking the Smoking Habit Additional Instructions / Restrictions: Maintain non weightbearing status right lower extremity with use of assistive device. Keep splint and dressing to right lower extremity clean, dry, and intact until follow up with Dr. Del Angel by 08/17/20. Weightbear as tolerated with supportive shoe left lower extremity. Elevate lower extremities while at rest. Discontinue tobacco habits to optimize healing. Discharge Orders/Prescriptions Prescriptions: New insulin lispro [Humalog KwikPen Insulin] 100 unit/mL Insulin Pen 10 unit subcut TIDAC Qty: 0 RF: 0 amlodipine 2.5 mg Tablet 2.5 mg PO DAILY Qty: 0 RF: 0 metoprolol succinate 25 mg Tablet Extended Release 24 Hr 75 mg PO DAILY Qty: 30 RF: 0 insulin lispro [Humalog KwikPen Insulin] 100 unit/mL Insulin Pen See Protocol unit subcut ACHS Qty: 0 RF: 0 ipratropium-albuterol 0.5 mg-3 mg(2.5 mg base)/3 mL Solution For Nebulization 3 ml inhalation Q6H.RT Qty: 90 RF: 0 nicotine 21 mg/24 hr Patch 24 Hour 21 mg transdermal DAILY Qty: 0 RF: 0 Calmoseptine 0.44-20.6 % Ointment 1 applic topical TID Qty: 0 RF: 0 sennosides-docusate sodium [Stool Softener-Stimulant Laxat] 8.6-50 mg Tablet 2 tab PO BID PRN PRN (Reason: Constipation) Qty: 0 RF: 0 hydromorphone 2 mg Tablet 2 mg PO Q4H PRN PRN (Reason: Pain Score 6-10) 3 Days Qty: 12 RF: 0 nicotine (polacrilex) 4 mg gum 4 mg buccal Q1H PRN (Reason: nicotine cravings) Qty: 100 RF: 0 Continued sucralfate 1 gram tablet 1 g PO QACHS RF: 0 atorvastatin 80 MG tablet 80 mg PO QHS RF: 0 nitroglycerin 0.4 MG tablet, sublingual 0.4 mg SL PRN PRN (Reason: Cardiac/Chest Pain) RF: 0 risperidone 4 mg tablet 4 mg PO QHS RF: 0 trazodone 100 MG tablet 200 mg PO QHS RF: 0 pregabalin 75 MG capsule 75 mg PO TID RF: 0 tizanidine 4 MG tablet 6 mg PO TID PRN PRN (Reason: Spasms) RF: 0 buspirone 30 mg tablet 30 mg PO BID RF: 0 furosemide 20 MG tablet 20 mg PO DAILY RF: 0 mirabegron 25 MG tablet extended release 24 hr 25 mg PO DAILY RF: 0 lisinopril 20 MG tablet 20 mg PO QHS RF: 0 apixaban 5 MG tablet 5 mg PO BID RF: 0 acidophilus-pectin, citrus 1 TABLET tablet 2 tab PO BID RF: 0 insulin glargine 100 UNITS/ML insulin pen 40 units SC BID RF: 0 polyethylene glycol 3350 17 GM packet 17 gm PO BID Qty: 60 RF: 0 baclofen 10 MG tablet 10 mg PO TID RF: 0 albuterol sulfate 1 PUFF inhaler 2 puff IH Q6H PRN PRN (Reason: SOB &/or Wheezing ) RF: 0 fluticasone propion-salmeterol 1 PUFF inhaler 2 puff IH Q12 RF: 0 dicyclomine 10 MG capsule 20 mg PO TIDAC Qty: 10 RF: 0 metoclopramide HCl 10 MG tablet 10 mg PO 4X/DAY PRN (Reason: Headache) Qty: 20 RF: 0 clopidogrel 75 mg tablet 75 mg PO DAILY RF: 0 alprazolam 0.5 MG tablet 0.5 mg PO TID PRN PRN (Reason: Anxiety) 3 Days Qty: 9 RF: 0 tiotropium bromide 2.5 mcg/actuation mist 2 puff INHALATION DAILY Qty: 4 RF: 3 montelukast 10 mg tablet 10 mg PO QHS Qty: 30 RF: 5 albuterol sulfate 2.5 mg /3 mL (0.083 %) solution for nebulization 2.5 mg INHALATION Q4H PRN (Reason: Sob &/Or Wheezing) Qty: 180 RF: 3 Discontinued amlodipine 10 MG tablet 10 mg PO DAILY RF: 0 promethazine 25 MG tablet 12.5 - 25 mg PO BID PRN PRN (Reason: Nausea) RF: 0 hydrocortisone 1 APPLIC cream 1 applic TOPICAL TID PRN PRN (Reason: Itching) Qty: 1 RF: 0 menthol-zinc oxide 1 APPLIC ointment 1 applic TOPICAL BID RF: 0 metoprolol tartrate 50 MG tablet 50 mg PO DAILY RF: 0 nystatin 1 APPLIC bottle 1 applic TOPICAL BID RF: 0 sodium hypochlorite 1 APPLIC bottle 1 applic TOPICAL DAILY@1000 Qty: 1 RF: 0 insulin lispro 100 UNIT/ML insulin pen 5 unit SC TIDAC Qty: 1 RF: 0 potassium chloride 10 mEq tablet,ER particles/crystals 10 meq PO DAILY Qty: 60 RF: 3 Referrals / Follow Up: Janel Taylor MD [Primary Care Provider] - Roxane Del Angel DPM [STAFF PHYSICIAN] - Within 1 Week (s/p right ankle open reduction internal fixation) Disposition Disposition (needs filled in before D/C Order can be placed): [facility] Facility Charges/Coding Visit Charges Inpatient E&M: 23864 Disch Hosp
--- NOTE | 2020-08-11 11:20 | CASEMGMT ---
MAURO completed a convalescent on [facility]. Faxed orders to [facility]. Per RN and GRILL COOK patient is now refusing to go to a SNF. Physician talked with her. Physician said she is prescribing gum and a nicotine patch. Patient is now saying if she can smoke 1 cigarette before going into the building she will be fine. MAURO called [facility] and spoke with Bianca. Bianca spoke with her Director and if patient smokes before she goes into their building it is not an issue for them. MAURO arranged for patient to get picked up at 1145 via cot. Patient's sister (Balbina) then came in. MAURO explained to her sister that patient is currently not wanting to go to the [facility]. Balbina said she is not going home. She thanked for the update. MAURO then went into the room and let patient know that transport is coming at 1145, she can get her 2nd COVID shot at [facility] tomorrow, and that if she smokes before she goes into [facility] that is fine. MAURO did tell her however that the ambulance drivers are the ones that will have to stay with her while she smokes. MAURO told her SW cannot guarantee they will do this. RN, secretary to board of commissioners, patient, and Izzy at [facility] notified of garbage pick up man time. MAURO also told Bianca at [facility] that patient will need to eat when she gets there. Plan: d/c to [facility] under skilled level of care on a convalescent stay. [facility] via [facility]. Aliya STUBBS
[2020-08-11 11:47] VITALS: PULSE 71; RESP 20
[2020-08-11] MEDS: Ipratropium/Albuterol Sulfate 3 ML AMPUL.NEB INHALATION (11:48)
[2020-08-11] MEDS: Acetaminophen 325 MG Tablet 650 MG PO (11:50)
[2020-08-11 11:55] LABS: Bedside Glucose 136 mg/dL (70-110)
--- NOTE | 2020-08-11 13:29 | NURSING ---
called report to lavon at [facility]
== END 2020-08-11 12:09 | disposition skilled nursing facility (03) | DRG 493 ==
LOC: ED 21:25 → PCU 07-31 07:06
PROVIDERS: Anesthesiology; Family Medicine; Internal Medicine; Podiatrist Foot & Ankle Surgery; Admitting Provider Hospitalist; Emergency Provider Emergency Medicine; PCP Family Medicine; Visit Provider Internal Medicine
PROC: 0QSG04Z Reposition Right Tibia with Internal Fixation Device, Open Approach (ICD-10-PCS; principal; 2020-08-05 07:10)
DX: S82.851A Displaced trimalleolar fracture of right lower leg, initial encounter for closed fracture (principal); F31.81 Bipolar II disorder; N17.9 Acute kidney failure, unspecified; Z68.41 Body mass index [BMI] 40.0-44.9, adult; E86.0 Dehydration; S93.01XA Subluxation of right ankle joint, initial encounter; I95.9 Hypotension, unspecified; E11.42 Type 2 diabetes mellitus with diabetic polyneuropathy; E11.65 Type 2 diabetes mellitus with hyperglycemia; Z20.822 Contact with and (suspected) exposure to COVID-19; J44.9 Chronic obstructive pulmonary disease, unspecified; J45.50 Severe persistent asthma, uncomplicated; I25.10 Atherosclerotic heart disease of native coronary artery without angina pectoris; I27.20 Pulmonary hypertension, unspecified; D50.8 Other iron deficiency anemias; I10 Essential (primary) hypertension; E78.5 Hyperlipidemia, unspecified; G47.33 Obstructive sleep apnea (adult) (pediatric); K21.00 Gastro-esophageal reflux disease with esophagitis, without bleeding; E55.9 Vitamin D deficiency, unspecified; R29.6 Repeated falls; W18.30XA Fall on same level, unspecified, initial encounter; Y93.9 Activity, unspecified; Y92.000 Kitchen of unspecified non-institutional (private) residence as the place of occurrence of the external cause; Y99.9 Unspecified external cause status; F25.9 Schizoaffective disorder, unspecified; E66.01 Morbid (severe) obesity due to excess calories; F17.210 Nicotine dependence, cigarettes, uncomplicated; Z79.01 Long term (current) use of anticoagulants; Z79.02 Long term (current) use of antithrombotics/antiplatelets; Z79.891 Long term (current) use of opiate analgesic; Z79.4 Long term (current) use of insulin; Z79.899 Other long term (current) drug therapy; Z99.3 Dependence on wheelchair; Z91.81 History of falling; Z86.711 Personal history of pulmonary embolism; Z98.84 Bariatric surgery status; Z95.5 Presence of coronary angioplasty implant and graft
CPT/HCPCS: 36415; 73600; 73610; 73700; 76000; 80048; 80053; 80076; 82306; 82962; 83036; 83735; 85025; 85610; 87426; 93005; 94002; 94003; 94640; 97110; 97162; 97166; 97530; 97535; 97802; 97803; 99251; 99285; C1713; J7030; J7120; A4216; G0463; J2405

== ENCOUNTER → 2020-08-18 | Outpatient (CLI) | payer MEDICARE, MEDICAID, SELFPAY ==
[2020-08-05 04:52] VITALS: BMI 41.6
[2020-08-18 19:39] LABS: M R Staph aureus DNA By PCR Negative (Negative); Probe Check PASS; Staph aureus DNA By PCR NEGATIVE (Negative)
== END | disposition home or self-care (01) ==
PROVIDERS: Visit Provider Podiatrist Foot & Ankle Surgery
DX: L03.115 Cellulitis of right lower limb (principal)
CPT/HCPCS: 87070; 87205; 87640

== ENCOUNTER 2020-09-01 09:07 | Outpatient (RCR) | payer MEDICARE, MEDICAID, SELFPAY ==
[2020-08-05 04:52] VITALS: BMI 41.6
[2020-09-01 09:30] VITALS: BP 116/66; PULSE 63; RESP 20; TEMP 36.9; BMI 41.6
--- NOTE | 2020-09-01 10:10 | PN.PCM_ITS ---
History of Present Illness Date of Service: 09/01/20 Chief Complaint: Right ankle status post ankle fracture with nonhealing incision sites History of Wound: This 55-year-old patient with history of diabetic neuropathy, bipolar, schizoaffective disorder, depression, hypertension, cardiac disease, obesity, excessive tobacco use is status post a fall with right ankle fracture which was fixated 08-[address] Del Angel. Patient has known problems healing. She fractured her left ankle which fixated by Dr. Mitchell and has had issues healing and ever since. It is still not completely healed via CT scan. She continues to smoke and relates that she is down to half a pack per day from 2 packs/day. She presents to the wound care center today for continued wound management of the nonhealing surgical incision sites. Progress of Wound: Less edema and erythema noted from last office visit with dehiscence of medial and lateral ankle wound Subjective Subjective Patient seen and examined resting comfortably. Patient denies any new pedal complaints. Patient denies any nausea, fever, chills, chest pain, shortness of breath, cough, streaking, purulence, vomiting. Patient relates that she wishes to go home and that physical therapy is going well Objective Data Objective Data Vital Signs: Vital Signs Temp Pulse Resp BP 98.4 F 63 20 H 116/66 09/01/20 09:30 09/01/20 09:30 09/01/20 09:30 09/01/20 09:30 Body Mass Index (BMI) 41.6 Physical Exam Const alert and no apparent distress General Appearance: cooperative and comfortable HEENT Head and Scalp: atraumatic Lymph Lymphatic: no lymphedema noted Resp normal respiratory effort Effort and Inspection: able to speak in complete sentences Extremity normal capillary refill and no calf tenderness General Extremity: edema bilateral lower extremity, no tenderness to palpation of joints or extremities and other findings Other Details: Capillary refill time less than 3 seconds noted to digits ; Negative for clubbing or cyanosis Peripheral Pulses: Yes posterior tibial pulses present bilateral diminished and dorsalis pedis pulses present bilateral diminished Skin General Skin Exam: atrophy and dry skin; Negative for ecchymosis, erythema, pallor or dermatitis Rashes: no rashes Wounds: wounds noted Wound Narrative: ulcers noted to medial lateral ankle fracture incision right ankle No malodor, purulence, probing to bone, streaking, fluctuation, crepitus. There is mild lateral incision periwound erythema noted. This is improved from last visit. There is dehiscence noted to the central aspect of both the lateral and medial incisions edema consistent with postsurgical changes. Skin is atrophic and hairless. Largely fibrotic base. This goes to fascia Neuro Sensory Exam: extremities light-touch: decreased Motor Exam: strength 5/5 throughout Psych Appearance: appropriate Attitude: calm Debridement Note Debridement Note Post-Debridement Measurements and Additional Note: Post-Debridement Measurements/Treatment - Nurse 1 - General Ulcer Assessment Start: 09/01/20 09:16 Freq: Status: Active Protocol: WOOD.[email or web address] Activity Type Activity Date Activity User E-Sign Co-Sign Detail Recorded Client Recorded Date Recorded By Document 09/01/20 09:30 DL [id number] 09/01/20 09:47 DL 09/01/20 09:30 - Today's Visit Information Type of service Initial Visit Arrival Mode Wheelchair Transfer Assistance Manual Transfer Assist (Other) x1 Patient Identification Verified (Name & Yes ) Patient Requires Transmission-Based No Precautions Finger Stick Blood Sugar(mg/dl) (if 150 indicated): Blood Sugar Stated by Patient Height and Weight Body Mass Index (BMI) 41.6 BMI Classification Obese Vital Signs Temperature (97.8 F-99.1 F) 98.4 F Temperature Source Temporal Pulse Rate (60-100) 63 Pulse Location Monitor Respiratory Rate (12-18) 20 H Respiratory rate source Observation Blood Pressure (90/60-120/80) 116/66 Blood Pressure Mean (mm Hg) 82 Source Monitor Pain Scale: 0-10 Numeric Is Patient Pain Free? Yes Communication Assessment Preferred language Pashto Able to Read Yes Able to Write No Right Hearing Abillity Normal Left Hearing Abillity Normal Visual Assistive Devices Glasses Teaching Assessment Preferences Verbal,Written, Demonstration Readiness To Learn Good Willingness to Engage in Self Management Med Activies Readiness to Engage in Self Management Med Activities Anxiety Level Calm Cooperation Cooperative Perception Coherent Interest in Health Problem Asks Questions Education Importance Acknowledges Need Does Patient Smoke tobacco or other Yes substances Smoking Status Current every day smoker Is Patient Diabetic Yes Functional Assessment Recent Decline in Ability to Perform Denies Any Declines Culture/Mandaeism/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 to contact place of mandaeism No Teaching: Wound Center Smoking Cessation -Person Taught Patient Foot Care -Person Taught Patient Dressing Your Wound -Person Taught Patient *Tissue Oxygenation -Person Taught Patient *Debridement -Person Taught Patient WC - Nurse 1 - General Ulcer Measurement Start: 09/01/20 09:16 Freq: Status: Active Protocol: Activity Type Activity Date Activity User E-Sign Co-Sign Detail Recorded Client Recorded Date Recorded By Document 09/01/20 09:30 DL [id number] 09/01/20 09:47 DL 09/01/20 09:30 Wound Center Nurse 1 #9 R MedAnkle -Current Size (cm) - Length 3.5 -Current Size (cm) - Width 0.6 -Current Size (cm) - Depth 0.1 -Total Square Cm 2.10 -Photo Taken Yes -Classification - Thickness Full Thickness without Exposed Support Structure -Exudate Amt Small -Exudate Type Serosanguineous -Wound Margin Distinct, Outline Attached -Granulation Amt None Present (0 %) -Necrosis Amt Large (67-100%) -Necrotic Tissue Type Adherent Slough -Structure Exposed N/A -Texture (Adriane-wound Skin Appearance) Localized Edema ,Scarring -Moisture (Adriane-wound Skin Appearance) Dry/Scaly -Color (Adriane-wound Skin Appearance) Erythema -Temperature (Adriane-wound Skin No Abnormality Appearance) (Pt Warm) -Tenderness on Palpation (Adriane-wound No Skin Appearance) -Ulcer Cleansing Wound Cleanser -Foul Odor after Cleansing No -Anesthetic Used 4% Lidocaine Solution #8 R Lat Ankle -Current Size (cm) - Length 5 -Current Size (cm) - Width 1 -Current Size (cm) - Depth 0.2 -Total Square Cm 5 -Photo Taken Yes -Classification - Thickness Full Thickness without Exposed Support Structure -Exudate Amt Small -Exudate Type Serosanguineous -Wound Margin Distinct, Outline Attached -Granulation Amt None Present (0 %) -Necrosis Amt Large (67-100%) -Necrotic Tissue Type Adherent Slough -Structure Exposed N/A -Texture (Adriane-wound Skin Appearance) Localized Edema ,Scarring -Moisture (Adriane-wound Skin Appearance) Dry/Scaly -Color (Adriane-wound Skin Appearance) Erythema,Rubor -Temperature (Adriane-wound Skin No Abnormality Appearance) (Pt Warm) -Tenderness on Palpation (Adriane-wound No Skin Appearance) -Ulcer Cleansing Wound Cleanser -Foul Odor after Cleansing No -Anesthetic Used 4% Lidocaine Solution Right Calf (cm) 39 Right Ankle (cm) 23 Left Calf (cm) 41 Left Ankle (cm) 23.5 WC - Nurse 2 - General Ulcer CM Notes Start: 09/01/20 09:16 Freq: Status: Active Protocol: Activity Type Activity Date Activity User E-Sign Co-Sign Detail Recorded Client Recorded Date Recorded By Document 09/01/20 09:55 LACIE [id number] 09/01/20 10:08 LACIE 09/01/20 09:55 Wound Center Nurse 2 #9 R MedAnkle -Time 09:59 -Correct Patient Yes -Correct Side, Site, Position Yes -Correct Procedure Yes -Procedure Performed Yes -Type of Procedure Debridement -Clinical Debridement Subcutaneous -Tissue Removed Subcutaneous -Post Debridement (cm) - Length 1 -Post Debridement (cm) - Width 0.4 -Post Debridement (cm) - Depth 0.2 -Total Square (Post) (cm) 0.4 -Area of Debridement (cm) - Length 1 -Area of Debridement (cm) - Width 0.4 -Total Square (Area) (cm) 0.4 -Tunneling No -Undermining/Tunneling No -Circular Undermining No -Wound/Ulcer Outcome Not Healed -Ulcer Cleansing Rinsed/ Irrigated with Saline -Foul Odor after Cleansing No -Bioengineered Tissue No -Bleeding Controlled with Pressure -Offloading No -Treatment Response Procedure Tolerated Well -Debridement - Subq, 1st 20sq cm No #8 R Lat Ankle -Time 09:58 -Correct Patient Yes -Correct Side, Site, Position Yes -Correct Procedure Yes -Procedure Performed Yes -Type of Procedure Debridement -Clinical Debridement Subcutaneous -Tissue Removed Subcutaneous -Post Debridement (cm) - Length 5 -Post Debridement (cm) - Width 0.9 -Post Debridement (cm) - Depth 0.2 -Total Square (Post) (cm) 4.5 -Area of Debridement (cm) - Length 5 -Area of Debridement (cm) - Width 0.9 -Total Square (Area) (cm) 4.5 -Tunneling No -Undermining/Tunneling No -Circular Undermining No -Wound/Ulcer Outcome Not Healed -Ulcer Cleansing Rinsed/ Irrigated with Saline -Foul Odor after Cleansing No -Bioengineered Tissue No -Bleeding Controlled with Pressure -Offloading No -Treatment Response Procedure Tolerated Well -Debridement - Subq, 1st 20sq cm Yes Pain Scale: 0-10 Numeric Is Patient Pain Free? Yes Wound debrided: Medial and lateral ankle Laterality: Right Wound Grade/Stage: Garcia 1 Type of Debridement: Excisional debridement Anesthesia Used: 4% Lidocaine Solution Depth: in the subcutaneous layer Percentage of wound debrided: 100 Instrument Used: 3mm curette Tissue Removed: includes fibrous, devitalized, biofilm, callus and slough tissue Severity: Fat Layer Exposed Amount of bleeding with debridement: Mild Bleeding Controlled with: Pressure Patient tolerated procedure: Patient tolerated procedure well Additional Wound Type of Debridement: Excisional debridement Anesthesia Used: 4% Lidocaine Solution Depth: in the subcutaneous layer Percentage of wound debrided: 100 Instrument Used: 3mm curette Tissue Removed: Includes fibrous, devitalized, biofilm, callus and slough tissue Severity: Fat Layer Exposed Amount of bleeding with debridement: Mild Bleeding Controlled with: Pressure Patient tolerated procedure: Patient tolerated procedure well Assessment/Plan Assessment/Plan (1) Skin ulcer of right ankle with fat layer exposed: CODE(S): L97.312 - Non-pressure chronic ulcer of right ankle with fat layer exposed (2) Type 2 diabetes mellitus with diabetic polyneuropathy: CODE(S): E11.42 - Type 2 diabetes mellitus with diabetic polyneuropathy QUALIFIERS: Diabetes mellitus terminal carman insulin use: with longterm use Qualified Code(s): E11.42 - Type 2 diabetes mellitus with diabetic polyneuropathy; Z79.4 - [facility] (current) use of insulin (3) Closed trimalleolar fracture of right ankle: CODE(S): S82.851A - Displaced trimalleolar fracture of right lower leg, initial encounter for closed fracture QUALIFIERS: Encounter type: initial encounter Qualified Code(s): S82.851A - Displaced trimalleolar fracture of right lower leg, initial encounter for closed fracture (4) Delayed surgical wound healing: CODE(S): T81.89XA - Other complications of procedures, not elsewhere classified, initial encounter QUALIFIERS: Encounter type: subsequent encounter Qualified Code(s): T81.89XD - Other complications of procedures, not elsewhere classified, subsequent encounter (5) History of gastric bypass: CODE(S): Z98.84 - Bariatric surgery status (6) PAD (peripheral artery disease): CODE(S): I73.9 - Peripheral vascular disease, unspecified (7) Tobacco abuse: CODE(S): Z72.0 - Tobacco use (8) Chronic narcotic use: CODE(S): F11.90 - Opioid use, unspecified, uncomplicated (9) Morbid obesity with BMI of 45.0-49.9, adult: CODE(S): E66.01 - Morbid (severe) obesity due to excess calories; Z68.42 - Body mass index [BMI] 45.0-49.9, adult PLAN: Patient seen and examined. today upon exam posterior splint was removed and patient noted to have improved erythema and edema with continued incision dehisence to lateral and medial incisions. Sutures remain in place. Patient is s/p ORIF for closed right trimalleolar fracture on 08/05/[address] Del Angel, with hospital stay. Patient fractured right ankle from a near syncable episode from standing in her kitchen. Patient noted to have fractured her left ankle with ORIF by Dr Mitchell in November 2019 with bone and skin healing complications. Patient has significant risk factors as far as healing goes these include but are not limited to elevated blood glucose with last Hgb a1c of 8.1% on 08/04/20, history of vitamin D deficiency with level of 28.8 on 12/18/19 and 34.6 on 07/31/20, smoking half ppd down from 2 ppd of cigarettes, history of delayed healing for contralateral ankle fracture both bone and skin, and morbid obesity. Patient is also noted to have a history of PE and is on eliquis and plavix. Discussed with patient normal fracture healing time and discussed this will likely take longer given her history and risk factors. Discussed importance of blood sugar control, losing weight, proper nutrition, vitamin D supplementation, and smoking cessation in optimizing healing potential It is noted that patient is currently residing at [facility]. Patient has a significant fall risk and needs assistance with wound care. Patient expresses desire to return home. Discussed with the patient that if physical therapy feels that she is safe to go home and she is able to obtain assistance with wound care along with weekly appointments with me she may be able to go home. Discussed the importance of fall prevention. Discussed that it is up to the nursing facility doctors in order for ultimate discharge and setting up of home health care. Culture obtained grew very rare coag negative staph which is possible skin contamination. It is noted that patient finished course of clindamycin. Patient had vascular studies obtained 01/17/2020 The right digital-brachial index is .94. The left digital-brachial index is .67. Interpretation Summary: Technically limited bilateral extremity resting noninvasive arterial examination. Normal right digital brachial index and normal right posterior tibial and dorsalis pedis triphasic. Dopplerable waveforms at rest. Abnormal left digital brachial index. Inability to access the left posterior tibial. Normal left dorsalis pedis triphasic waveform. Critical ischemia does not appear to be present bilaterally. Patient relates that she is post to follow with Dr. Salgado's office but never did. Patient to reconsider this note she has new wou nds. After verbal consent was obtained p debridement was performed of the ulceration site To continue every other day dressing changes with Santyl, 4 x 4's, Kerlix, cast padding, posterior splint, Robbi wrap. Reviewed concerns and symptoms to watch out for All questions were answered To contact if any questions or concerns To follow-up in 1 week This note was generated with [employer] dictation software. It may contain incorrect words, spelling, and punctuation that were not noted in checking the note before signing.
== END 2020-09-02 23:59 ==
LOC: WC 09:07
PROVIDERS: PCP Family Medicine; Visit Provider Podiatrist Foot & Ankle Surgery
DX: T81.31XA Disruption of external operation (surgical) wound, not elsewhere classified, initial encounter (principal); L97.312 Non-pressure chronic ulcer of right ankle with fat layer exposed; E11.42 Type 2 diabetes mellitus with diabetic polyneuropathy; E11.51 Type 2 diabetes mellitus with diabetic peripheral angiopathy without gangrene; I10 Essential (primary) hypertension; S82.851G Displaced trimalleolar fracture of right lower leg, subsequent encounter for closed fracture with delayed healing; W19.XXXD Unspecified fall, subsequent encounter; F25.9 Schizoaffective disorder, unspecified; F31.9 Bipolar disorder, unspecified; E66.01 Morbid (severe) obesity due to excess calories; Z68.42 Body mass index [BMI] 45.0-49.9, adult; F17.210 Nicotine dependence, cigarettes, uncomplicated; Z79.01 Long term (current) use of anticoagulants; Z79.02 Long term (current) use of antithrombotics/antiplatelets; Z79.4 Long term (current) use of insulin; Z79.891 Long term (current) use of opiate analgesic; Z79.899 Other long term (current) drug therapy; Z86.711 Personal history of pulmonary embolism; Z98.84 Bariatric surgery status
CPT/HCPCS: 11042; 99213; G0463

== ENCOUNTER 2020-09-15 10:45 | Outpatient (RCR) | payer MEDICARE, MEDICAID, SELFPAY ==
[2020-09-03 00:37] VITALS: BP 116/66; PULSE 63; RESP 20; TEMP 36.9
[2020-09-08 10:25] VITALS: BP 161/54; PULSE 68; RESP 18; TEMP 36.2; BMI 41.6
[2020-09-08 10:55] LABS: Bedside Glucose 221 mg/dL (70-110)
--- NOTE | 2020-09-08 12:23 | PN.PCM_ITS ---
History of Present Illness Date of Service: 09/08/20 Chief Complaint: Right ankle status post ankle fracture with nonhealing incision sites History of Wound: This 55-year-old patient with history of diabetic neuropathy, bipolar, schizoaffective disorder, depression, hypertension, cardiac disease, obesity, excessive tobacco use is status post a fall with right ankle fracture which was fixated 08-[address] Del Angel. Patient has known problems healing. She fractured her left ankle which fixated by Dr. Mitchell and has had issues healing and ever since. It is still not completely healed via CT scan. She continues to smoke and relates that she is down to half a pack per day from 2 packs/day. She presents to the wound care center today for continued wound management of the nonhealing surgical incision sites. Progress of Wound: Stable Subjective Subjective Patient seen and examined resting comfortably. Patient denies any new pedal complaints. Patient denies any nausea, fever, chills, chest pain, shortness of breath, cough, streaking, purulence, vomiting. Patient relates that she has gone home with home health care now. Objective Data Objective Data Vital Signs: Vital Signs Temp Pulse Resp BP 97.2 F L 68 18 161/54 H 09/08/20 10:25 09/08/20 10:25 09/08/20 10:25 09/08/20 10:25 Oxygen Delivery Method Room Air Body Mass Index (BMI) 41.6 Lab / Micro Data Labs: Laboratory Results - last 24 hr 09/08/20 10:53 POC Glucose 221 H Physical Exam Narrative Const alert and no apparent distress General Appearance: cooperative and comfortable HEENT Head and Scalp: atraumatic Lymph Lymphatic: no lymphedema noted Resp normal respiratory effort Effort and Inspection: able to speak in complete sentences Extremity normal capillary refill and no calf tenderness General Extremity: edema bilateral lower extremity, no tenderness to palpation of joints or extremities and other findings Other Details: Capillary refill time less than 3 seconds noted to digits ; Negative for clubbing or cyanosis Peripheral Pulses: Yes posterior tibial pulses present bilateral diminished and dorsalis pedis pulses present bilateral diminished Skin General Skin Exam: atrophy and dry skin; Negative for ecchymosis, erythema, pallor or dermatitis Rashes: no rashes Wounds: wounds noted Wound Narrative: ulcers noted to medial lateral ankle fracture incision sites right ankle No malodor, purulence, probing to bone, streaking, fluctuation, crepitus. There is mild lateral incision periwound erythema which is resolved. There is dehiscence noted to the central aspect of both the lateral and medial incisions edema consistent with postsurgical changes. Skin is atrophic and hairless. Largely fibrotic base. This goes to fascia. Deep sutures exposed on lateral aspect. Pain to palpation. Neuro Sensory Exam: extremities light-touch: decreased Motor Exam: strength 5/5 throughout Psych Appearance: appropriate Attitude: calm Debridement Note Debridement Note Post-Debridement Measurements and Additional Note: Post-Debridement Measurements/Treatment - Nurse 1 - General Ulcer Assessment Start: 09/08/20 10:25 Freq: Status: Active Protocol: LISY Activity Type Activity Date Activity User E-Sign Co-Sign Detail Recorded Client Recorded Date Recorded By Document 09/08/20 10:25 MW Desktop 09/08/20 10:34 MW 09/08/20 10:25 WC - Today's Visit Information Type of service Follow-up Visit (Physician/HEEL [facility] ) Arrival Mode Wheelchair Transfer Assistance None Accompanied by self Patient Identification Verified (Name & Yes ) Patient Requires Transmission-Based No Precautions Safety Precautions Fall Prevention Height and Weight Body Mass Index (BMI) 41.6 BMI Classification Obese Vital Signs Temperature (97.8 F-99.1 F) 97.2 F L Temperature Source Temporal Pulse Rate (60-100) 68 Pulse Location Monitor Respiratory Rate (12-18) 18 Respiratory rate source Observation Oxygen Delivery Method Room Air Blood Pressure (90/60-120/80) 161/54 H Blood Pressure Mean (mm Hg) 89 Source Monitor Position Sitting Blood Pressure Location Left Arm History Since Last Visit- (Skip if this is Patient's initial visit) Have you changed medications since your No last visit? Any new allergies or adverse reactions No Had a fall/change in ADL's that may No increase risk of falls Signs or symptoms of abuse and/or No neglect since last visit Have you been in the hospital since your No last visit? Has dressing in place as prescribed Yes Has compression in place as prescribed Yes Has offloadiing in place as prescribed N/A Experienced any changes in pain level or No management Other Footwear lukas wrap Pain Scale: 0-10 Numeric Is Patient Pain Free? Yes - Nurse 1 - General Ulcer Measurement Start: 09/08/20 10:25 Freq: Status: Active Protocol: Activity Type Activity Date Activity User E-Sign Co-Sign Detail Recorded Client Recorded Date Recorded By Document 09/08/20 10:25 MW Desktop 09/08/20 10:34 MW 09/08/20 10:25 Wound Center Nurse 1 #9 R MedAnkle -Combined with other wound No -Current Size (cm) - Length 4.5 -Current Size (cm) - Width 0.1 -Current Size (cm) - Depth 0.1 -Total Square Cm 0.45 -Photo Taken No -Epithelialization None Present -Tunneling No -Undermining/Tunneling No -Circular Undermining No -Exudate Amt Small -Exudate Type Serosanguineous -Wound Margin Flat & Intact -Granulation Amt None Present (0 %) -Granulation Quality N/A -Slough/Fibrin Yes -Structure Exposed N/A -Texture (Adriane-wound Skin Appearance) Assessed, Scarring -Moisture (Adriane-wound Skin Appearance) Assessed,Dry/ Scaly -Color (Adriane-wound Skin Appearance) No Abnormality, Assessed -Temperature (Adriane-wound Skin No Abnormality Appearance) (Pt Warm) -Tenderness on Palpation (Adriane-wound Yes Skin Appearance) -Ulcer Cleansing soap and water -Foul Odor after Cleansing No -Anesthetic Used 4% Lidocaine Solution #8 R Lat Ankle -Combined with other wound No -Current Size (cm) - Length 5.5 -Current Size (cm) - Width 0.8 -Current Size (cm) - Depth 0.1 -Total Square Cm 4.40 -Photo Taken No -Epithelialization None Present -Tunneling No -Undermining/Tunneling No -Circular Undermining No -Exudate Amt Medium -Exudate Type Serosanguineous -Wound Margin Flat & Intact -Granulation Amt None Present (0 %) -Granulation Quality N/A -Slough/Fibrin Yes -Necrosis Amt Large (67-100%) -Necrotic Tissue Type Adherent Slough -Structure Exposed N/A -Texture (Adriane-wound Skin Appearance) Assessed, Localized Edema ,Scarring -Moisture (Adriane-wound Skin Appearance) Assessed,Dry/ Scaly -Color (Adriane-wound Skin Appearance) No Abnormality, Assessed -Temperature (Adriane-wound Skin No Abnormality Appearance) (Pt Warm) -Tenderness on Palpation (Adriane-wound Yes Skin Appearance) -Ulcer Cleansing soap and water -Foul Odor after Cleansing No -Anesthetic Used 4% Lidocaine Solution Lower Limb Edema Present No WC - Nurse 2 - General Ulcer CM Notes Start: 09/08/20 10:25 Freq: Status: Active Protocol: Activity Type Activity Date Activity User E-Sign Co-Sign Detail Recorded Client Recorded Date Recorded By Document 09/08/20 10:57 LACIE [id number] 09/08/20 10:59 LACIE 09/08/20 10:57 Wound Center Nurse 2 #9 R MedAnkle -Time 10:58 -Correct Patient Yes -Correct Side, Site, Position Yes -Correct Procedure Yes -Procedure Performed Yes -Type of Procedure Debridement -Clinical Debridement Subcutaneous -Tissue Removed Subcutaneous -Post Debridement (cm) - Length 3.6 -Post Debridement (cm) - Width 0.5 -Post Debridement (cm) - Depth 0.2 -Total Square (Post) (cm) 1.80 -Area of Debridement (cm) - Length 3.6 -Area of Debridement (cm) - Width 0.5 -Total Square (Area) (cm) 1.80 -Tunneling No -Undermining/Tunneling No -Circular Undermining No -Wound/Ulcer Outcome Not Healed -Ulcer Cleansing Rinsed/ Irrigated with Saline -Foul Odor after Cleansing No -Bioengineered Tissue No -Bleeding Controlled with Pressure -Offloading Yes -Type of Offloading Camwalker -Treatment Response Procedure Tolerated Well -Debridement - Subq, 1st 20sq cm Yes #8 R Lat Ankle -Time 10:59 -Correct Patient Yes -Correct Side, Site, Position Yes -Correct Procedure Yes -Procedure Performed Yes -Type of Procedure Debridement -Clinical Debridement Subcutaneous -Tissue Removed Subcutaneous -Post Debridement (cm) - Length 5 -Post Debridement (cm) - Width 0.6 -Post Debridement (cm) - Depth 0.3 -Total Square (Post) (cm) 3.0 -Area of Debridement (cm) - Length 5 -Area of Debridement (cm) - Width 0.6 -Total Square (Area) (cm) 3.0 -Tunneling No -Undermining/Tunneling No -Circular Undermining No -Wound/Ulcer Outcome Not Healed -Ulcer Cleansing Rinsed/ Irrigated with Saline -Foul Odor after Cleansing No -Bioengineered Tissue No -Bleeding Controlled with NA,Pressure -Offloading Yes -Type of Offloading Camwalker -Treatment Response Procedure Tolerated Well -Debridement - Subq, 1st 20sq cm No Pain Scale: 0-10 Numeric Is Patient Pain Free? Yes - Nurse 3 - General Ulcer D/C NN Start: 09/08/20 10:25 Freq: Status: Active Protocol: Activity Type Activity Date Activity User E-Sign Co-Sign Detail Recorded Client Recorded Date Recorded By Document 09/08/20 11:06 LACIE [id number] 09/08/20 11:06 LACIE 09/08/20 11:06 Wound Care Nurse 3 #9 R MedAnkle -Ulcer Cleansing Rinsed/ Irrigated with Saline -Foul Odor after Cleansing No -Primary Dressing Applied C Hydrogel ($) -Primary Dressing Covered/Secured with Dry Gauze & Roll Gauze #8 R Lat Ankle -Ulcer Cleansing Rinsed/ Irrigated with Saline -Foul Odor after Cleansing No -Primary Dressing Applied C Hydrogel ($) -Primary Dressing Covered/Secured with Dry Gauze & Roll Gauze Pain Scale: 0-10 Numeric Is Patient Pain Free? Yes - Visit Discharge Discharge Condition Stable Ambulatory Status Wheelchair Transportation Private Auto Medication Reconcilliation completed & Yes provided to patient/care provider Clinical Summary of Care Provided Yes Wound debrided: Medial lateral ankle Laterality: Right Wound Grade/Stage: Garcia 1 Type of Debridement: Excisional debridement Anesthesia Used: 4% Lidocaine Solution Depth: in the subcutaneous layer Percentage of wound debrided: 100 Instrument Used: 3mm curette Tissue Removed: includes fibrous, devitalized, biofilm, callus and slough tissue Severity: Fat Layer Exposed Amount of bleeding with debridement: Mild Bleeding Controlled with: Pressure Patient tolerated procedure: Patient tolerated procedure well Assessment/Plan Assessment/Plan (1) Skin ulcer of right ankle with fat layer exposed: CODE(S): L97.312 - Non-pressure chronic ulcer of right ankle with fat layer exposed (2) Delayed surgical wound healing: CODE(S): T81.89XA - Other complications of procedures, not elsewhere classified, initial encounter QUALIFIERS: Encounter type: subsequent encounter Qualified Code(s): T81.89XD - Other complications of procedures, not elsewhere classified, subsequent encounter (3) Type 2 diabetes mellitus: CODE(S): E11.9 - Type 2 diabetes mellitus without complications QUALIFIERS: Diabetes mellitus complication detail: with barrington yneuropathy Diabetes mellitus complication status: with neurologic complications Diabetes mellitus intermission coordinator insulin use: with intermission coordinator use Qualified Code(s): E11.42 - Type 2 diabetes mellitus with diabetic polyneuropathy; Z79.4 - [facility] (current) use of insulin (4) Morbid obesity: CODE(S): E66.01 - Morbid (severe) obesity due to excess calories (5) Stage 2 moderate COPD by GOLD classification: CODE(S): J44.9 - Chronic obstructive pulmonary disease, unspecified (6) History of gastric bypass: CODE(S): Z98.84 - Bariatric surgery status (7) Iron deficiency anemia following bariatric surgery: CODE(S): D50.9 - Iron deficiency anemia, unspecified (8) PAD (peripheral artery disease): CODE(S): I73.9 - Peripheral vascular disease, unspecified (9) Diabetic polyneuropathy: CODE(S): E11.42 - Type 2 diabetes mellitus with diabetic polyneuropathy QUALIFIERS: Diabetes mellitus type: type 2 Qualified Code(s): E11.42 - Type 2 diabetes mellitus with diabetic polyneuropathy (10) Chronic narcotic use: CODE(S): F11.90 - Opioid use, unspecified, uncomplicated (11) Tobacco abuse: CODE(S): Z72.0 - Tobacco use PLAN: Patient seen and examined. today upon exam posterior splint was removed and patient noted to have improved erythema and edema with continued incision dehisence to lateral and medial incisions. Sutures were removed today. Patient also brought her cam boot from previous contralateral ankle fracture surgery. Patient is s/p ORIF for closed right trimalleolar fracture on 08/05/[address] Del Angel, with hospital stay. Patient fractured right ankle from a near syncable episode from standing in her kitchen. Patient noted to have fractured her left ankle with ORIF by Dr Mitchell in November 2019 with bone and skin healing complications. Patient has significant risk factors as far as healing goes these include but are not limited to elevated blood glucose with last Hgb a1c of 8.1% on 08/04/20, history of vitamin D deficiency with level of 28.8 on 12/18/19 and 34.6 on 07/31/20, smoking half ppd down from 2 ppd of cigarettes, history of delayed healing for contralateral ankle fracture both bone and skin, and morbid obesity. Patient is also noted to have a history of PE and is on eliquis and plavix. Discussed with patient normal fracture healing time and discussed this will likely take longer given her history and risk factors. Discussed importance of blood sugar control, losing weight, proper nutrition, vitamin D supplementation, and smoking cessation in optimizing healing potential Patient has returned home from [facility] with home health care. Culture obtained grew very rare coag negative staph which is possible skin contamination. It is noted that patient finished course of clindamycin. Patient had vascular studies obtained 01/17/2020 The right digital-brachial index is .94. The left digital-brachial index is .67. Interpretation Summary: Technically limited bilateral extremity resting noninvasive arterial examination. Normal right digital brachial index and normal right posterior tibial and dorsalis pedis triphasic. Dopplerable waveforms at rest. Abnormal left digital brachial index. Inability to access the left posterior tibial. Normal left dorsalis pedis triphasic waveform. Critical ischemia does not appear to be present bilaterally. Patient relates that she is post to follow with Dr. Salgado's office but never did. Patient to reconsider this note she has new wounds. After verbal consent was obtained p debridement was performed of the ulceration site To continue every other day dressing changes with Santyl, 4 x 4's, Kerlix. Patient is to remain nonweightbearing to her right lower extremity and to utilize cam boot to protect both the fracture site and the wounds. Reviewed concerns and symptoms to watch out for All questions were answered To contact if any questions or concerns To follow-up in 1 week This note was generated with [employer] software. It may contain incorrect words, spelling, and punctuation that were not noted in checking the note before signing.
[2020-09-15 11:47] VITALS: BP 98/58; PULSE 117; RESP 16; TEMP 36.9; BMI 41.6
--- NOTE | 2020-09-15 12:40 | PCM.WC.PN ---
History of Present Illness Date of Service: 09/15/20 Chief Complaint: Right ankle status post ankle fracture with nonhealing incision sites History of Wound: This 55-year-old patient with history of diabetic neuropathy, bipolar, schizoaffective disorder, depression, hypertension, cardiac disease, obesity, excessive tobacco use is status post a fall with right ankle fracture which was fixated 08-[address] Del Angel. Patient has known problems healing. She fractured her left ankle which fixated by Dr. Mitchell and has had issues healing and ever since. It is still not completely healed via CT scan. She continues to smoke and relates that she is down to half a pack per day from 2 packs/day. She presents to the wound care center today for continued wound management of the nonhealing surgical incision sites. Progress of Wound: Improved Subjective Subjective Patient seen and examined resting comfortably. Patient denies any new pedal complaints. Patient denies any nausea, fever, chills, chest pain, shortness of breath, cough, streaking, purulence, vomiting.. Patient relates that she is still having pain to her right ankle and that her pain meds are not helping that much. She relates that she has had to put weight through her right ankle for transfers since being home. Objective Data Objective Data Vital Signs: Vital Signs Temp Pulse Resp BP 98.4 F 117 H 16 98/58 L 09/15/20 11:47 09/15/20 11:47 09/15/20 11:47 09/15/20 11:47 Oxygen Delivery Method Room Air Body Mass Index (BMI) 41.6 Physical Exam Narrative Const alert and no apparent distress General Appearance: cooperative and comfortable, obese HEENT Head and Scalp: atraumatic Lymph Lymphatic: no lymphedema noted Resp normal respiratory effort Effort and Inspection: able to speak in complete sentences Extremity normal capillary refill and no calf tenderness General Extremity: edema bilateral lower extremity, no tenderness to palpation of joints or extremities and other findings Other Details: Capillary refill time less than 3 seconds noted to digits ; Negative for clubbing or cyanosis Peripheral Pulses: Yes posterior tibial pulses present bilateral diminished and dorsalis pedis pulses present bilateral diminished Skin General Skin Exam: atrophy and dry skin; Negative for ecchymosis, erythema, pallor or dermatitis Rashes: no rashes Wounds: wounds noted Wound Narrative: ulcers noted to medial lateral ankle fracture incision sites right ankle No malodor, purulence, probing to bone, streaking, fluctuation, crepitus. There is dehiscence noted to the central aspect of both the lateral and medial incisions edema consistent with postsurgical changes. Skin is atrophic and hairless. Largely fibrotic base. This goes to fascia. Pain to palpation. Neuro Sensory Exam: extremities light-touch: decreased Motor Exam: strength 5/5 throughout Psych Appearance: appropriate Attitude: calm Debridement Note Debridement Note Post-Debridement Measurements and Additional Note: Post-Debridement Measurements/Treatment - Nurse 1 - General Ulcer Assessment Start: 09/08/20 10:25 Freq: Status: Active Protocol: WOOD.LOWEXT Activity Type Activity Date Activity User E-Sign Co-Sign Detail Recorded Client Recorded Date Recorded By Document 09/08/20 10:25 MW Desktop 09/08/20 10:34 MW Document 09/15/20 11:47 [facility] [id number] 09/15/20 11:56 BM 09/08/20 09/15/20 10:25 11:47 - Today's Visit Information Type of service Follow-up Visit Follow-up Visit (Physician/PROFESSIONAL SECURITY OFFICER (Physician/PROFESSIONAL SECURITY OFFICER ) ) Arrival Mode Wheelchair Wheelchair Transfer Assistance None Manual Transfer Assist (Other) 1 assist Accompanied by self Patient Identification Verified (Name & Yes Yes ) Patient Requires Transmission-Based No No Precautions Safety Precautions Fall Prevention Height and Weight Body Mass Index (BMI) 41.6 41.6 BMI Classification Obese Obese Vital Signs Temperature (97.8 F-99.1 F) 97.2 F L 98.4 F Temperature Source Temporal Temporal Pulse Rate (60-100) 68 117 H Pulse Location Monitor Monitor Respiratory Rate (12-18) 18 16 Respiratory rate source Observation Observation Oxygen Delivery Method Room Air Room Air Blood Pressure (90/60-120/80) 161/54 H 98/58 L Blood Pressure Mean (mm Hg) 89 71 Source Monitor Monitor Position Sitting Sitting Blood Pressure Location Left Arm Right Forearm History Since Last Visit- (Skip if this is Patient's initial visit) Have you changed medications since your No No last visit? Any new allergies or adverse reactions No No Had a fall/change in ADL's that may No No increase risk of falls Signs or symptoms of abuse and/or No No neglect since last visit Have you been in the hospital since your No No last visit? Has dressing in place as prescribed Yes Yes Has compression in place as prescribed Yes Yes Has offloadiing in place as prescribed N/A Yes Experienced any changes in pain level or No No management Left Footwear Other Footwear (Comment) Right Footwear Removable Cast Walker/Walking Boot Other Footwear lukas wrap barefoot r foot Pain Scale: 0-10 Numeric Is Patient Pain Free? Yes WC - Nurse 1 - General Ulcer Measurement Start: 09/08/20 10:25 Freq: Status: Active Protocol: Activity Type Activity Date Activity User E-Sign Co-Sign Detail Recorded Client Recorded Date Recorded By Document 09/08/20 10:25 MW Desktop 09/08/20 10:34 MW Document 09/15/20 11:47 [facility] [id number] 09/15/20 11:56 BMF 09/08/20 09/15/20 10:25 11:47 Wound Center Nurse 1 #9 R MedAnkle -Combined with other wound No No -Current Size (cm) - Length 4.5 3.5 -Current Size (cm) - Width 0.1 0.6 -Current Size (cm) - Depth 0.1 0.1 -Total Square Cm 0.45 2.10 -Photo Taken No No -Epithelialization None Present None Present -Tunneling No No -Undermining/Tunneling No No -Circular Undermining No No -Exudate Amt Small Small -Exudate Type Serosanguineous Serous -Wound Margin Flat & Intact Distinct, Outline Attached -Granulation Amt None Present (0 None Present (0 %) %) -Granulation Quality N/A -Slough/Fibrin Yes Yes -Necrosis Amt Large (67-100%) -Necrotic Tissue Type Adherent Slough -Structure Exposed N/A -Texture (Adriane-wound Skin Appearance) Assessed, Assessed, Scarring Scarring -Moisture (Adriane-wound Skin Appearance) Assessed,Dry/ Assessed Scaly -Color (Adriane-wound Skin Appearance) No Abnormality, Assessed Assessed -Temperature (Adriane-wound Skin No Abnormality No Abnormality Appearance) (Pt Warm) (Pt Warm) -Tenderness on Palpation (Adriane-wound Yes Yes Skin Appearance) -Ulcer Cleansing soap and water soapy water -Foul Odor after Cleansing No No -Anesthetic Used 4% Lidocaine 5% Lidocaine Solution Gel #8 R Lat Ankle -Combined with other wound No No -Current Size (cm) - Length 5.5 5 -Current Size (cm) - Width 0.8 0.9 -Current Size (cm) - Depth 0.1 0.3 -Total Square Cm 4.40 4.5 -Photo Taken No No -Epithelialization None Present None Present -Tunneling No No -Undermining/Tunneling No No -Circular Undermining No No -Exudate Amt Medium Medium -Exudate Type Serosanguineous Serosanguineous -Wound Margin Flat & Intact Distinct, Outline Attached -Granulation Amt None Present (0 None Present (0 %) %) -Granulation Quality N/A -Slough/Fibrin Yes Yes -Necrosis Amt Large (67-100%) Large (67-100%) -Necrotic Tissue Type Adherent Slough Adherent Slough -Structure Exposed N/A -Texture (Adriane-wound Skin Appearance) Assessed, Assessed, Localized Edema Scarring ,Scarring -Moisture (Adriane-wound Skin Appearance) Assessed,Dry/ Assessed Scaly -Color (Adriane-wound Skin Appearance) No Abnormality, Assessed Assessed -Temperature (Adriane-wound Skin No Abnormality No Abnormality Appearance) (Pt Warm) (Pt Warm) -Tenderness on Palpation (Adriane-wound Yes Yes Skin Appearance) -Ulcer Cleansing soap and water soapy water -Foul Odor after Cleansing No No -Anesthetic Used 4% Lidocaine 5% Lidocaine Solution Gel Lower Limb Edema Present No WC - Nurse 2 - General Ulcer CM Notes Start: 09/08/20 10:25 Freq: Status: Active Protocol: Activity Type Activity Date Activity User E-Sign Co-Sign Detail Recorded Client Recorded Date Recorded By Document 09/08/20 10:57 [id number] 09/08/20 10:59 Document 09/15/20 12:09 [id number] 09/15/20 12:11 09/08/20 09/15/20 10:57 12:09 Wound Center Nurse 2 #9 R MedAnkle -Time 10:58 12:09 -Correct Patient Yes Yes -Correct Side, Site, Position Yes Yes -Correct Procedure Yes Yes -Procedure Performed Yes Yes -Type of Procedure Debridement Debridement -Clinical Debridement Subcutaneous Subcutaneous -Tissue Removed Subcutaneous Subcutaneous -Post Debridement (cm) - Length 3.6 3.0 -Post Debridement (cm) - Width 0.5 0.8 -Post Debridement (cm) - Depth 0.2 0.2 -Total Square (Post) (cm) 1.80 2.40 -Area of Debridement (cm) - Length 3.6 3.0 -Area of Debridement (cm) - Width 0.5 0.8 -Total Square (Area) (cm) 1.80 2.40 -Tunneling No No -Undermining/Tunneling No No -Circular Undermining No No -Wound/Ulcer Outcome Not Healed Not Healed -Ulcer Cleansing Rinsed/ Rinsed/ Irrigated with Irrigated with Saline Saline -Foul Odor after Cleansing No No -Bioengineered Tissue No No -Bleeding Controlled with Pressure Pressure -Offloading Yes No -Type of Offloading Camwalker -Treatment Response Procedure Procedure Tolerated Well Tolerated Well -Debridement - Subq, 1st 20sq cm Yes Yes #8 R Lat Ankle -Time 10:59 12:09 -Correct Patient Yes Yes -Correct Side, Site, Position Yes Yes -Correct Procedure Yes Yes -Procedure Performed Yes Yes -Type of Procedure Debridement Debridement -Clinical Debridement Subcutaneous Subcutaneous -Tissue Removed Subcutaneous Subcutaneous -Post Debridement (cm) - Length 5 5.0 -Post Debridement (cm) - Width 0.6 0.6 -Post Debridement (cm) - Depth 0.3 0.3 -Total Square (Post) (cm) 3.0 3.00 -Area of Debridement (cm) - Length 5 5.0 -Area of Debridement (cm) - Width 0.6 0.6 -Total Square (Area) (cm) 3.0 3.00 -Tunneling No No -Undermining/Tunneling No No -Circular Undermining No No -Wound/Ulcer Outcome Not Healed Not Healed -Ulcer Cleansing Rinsed/ Rinsed/ Irrigated with Irrigated with Saline Saline -Foul Odor after Cleansing No No -Bioengineered Tissue No No -Bleeding Controlled with NA,Pressure Pressure -Offloading Yes No -Type of Offloading Camwalker -Treatment Response Procedure Procedure Tolerated Well Tolerated Well -Debridement - Subq, 1st 20sq cm No No Pain Scale: 0-10 Numeric Is Patient Pain Free? Yes Yes - Nurse 3 - General Ulcer D/C NN Start: 09/08/20 10:25 Freq: Status: Active Protocol: Activity Type Activity Date Activity User E-Sign Co-Sign Detail Recorded Client Recorded Date Recorded By Document 09/08/20 11:06 LACIE [id number] 09/08/20 11:06 LACIE 09/08/20 11:06 Wound Care Nurse 3 #9 R MedAnkle -Ulcer Cleansing Rinsed/ Irrigated with Saline -Foul Odor after Cleansing No -Primary Dressing Applied C Hydrogel ($) -Primary Dressing Covered/Secured with Dry Gauze & Roll Gauze #8 R Lat Ankle -Ulcer Cleansing Rinsed/ Irrigated with Saline -Foul Odor after Cleansing No -Primary Dressing Applied C Hydrogel ($) -Primary Dressing Covered/Secured with Dry Gauze & Roll Gauze Pain Scale: 0-10 Numeric Is Patient Pain Free? Yes WC - Visit Discharge Discharge Condition Stable Ambulatory Status Wheelchair Transportation Private Auto Medication Reconcilliation completed & Yes provided to patient/care provider Clinical Summary of Care Provided Yes Wound debrided: medial and lateral ankle Laterality: Right Wound Grade/Stage: varghese 1 Type of Debridement: Excisional debridement Anesthesia Used: 4% Lidocaine Solution Depth: in the subcutaneous layer Percentage of wound debrided: 100 Instrument Used: 3mm curette Tissue Removed: includes fibrous, devitalized, biofilm, callus and slough tissue Severity: Fat Layer Exposed Amount of bleeding with debridement: Mild Bleeding Controlled with: Pressure Patient tolerated procedure: Patient tolerated procedure well Assessment/Plan Assessment/Plan (1) Skin ulcer of right ankle with fat layer exposed: CODE(S): L97.312 - Non-pressure chronic ulcer of right ankle with fat layer exposed (2) Delayed surgical wound healing: CODE(S): T81.89XA - Other complications of procedures, not elsewhere classified, initial encounter QUALIFIERS: Encounter type: subsequent encounter Qualified Code(s): T81.89XD - Other complications of procedures, not elsewhere classified, subsequent encounter (3) Type 2 diabetes mellitus: CODE(S): E11.9 - Type 2 diabetes mellitus without complications QUALIFIERS: Diabetes mellitus complication detail: with polyneuropathy Diabetes mellitus complication status: with neurologic complications Diabetes mellitus terminal gauger insulin use: with nursing home use Qualified Code(s): E11.42 - Type 2 diabetes mellitus with diabetic polyneuropathy; Z79.4 - FPC (current) use of insulin (4) Morbid obesity: CODE(S): E66.01 - Morbid (severe) obesity due to excess calories (5) Stage 2 moderate COPD by GOLD classification: CODE(S): J44.9 - Chronic obstructive pulmonary disease, unspecified (6) History of gastric bypass: CODE(S): Z98.84 - Bariatric surgery status (7) Iron deficiency anemia following bariatric surgery: CODE(S): D50.9 - Iron deficiency anemia, unspecified (8) PAD (peripheral artery disease): CODE(S): I73.9 - Peripheral vascular disease, unspecified (9) Diabetic polyneuropathy: CODE(S): E11.42 - Type 2 diabetes mellitus with diabetic polyneuropathy QUALIFIERS: Diabetes mellitus type: type 2 Qualified Code(s): E11.42 - Type 2 diabetes mellitus with diabetic polyneuropathy (10) Chronic narcotic use: CODE(S): F11.90 - Opioid use, unspecified, uncomplicated (11) Tobacco abuse: CODE(S): Z72.0 - Tobacco use (12) Obesity: CODE(S): E66.9 - Obesity, unspecified PLAN: Patient seen and examined. Patient noted to be wearing surgical shoe. She relates needing to put weight through right foot when transferring. She relates that this hurts. She is back home. She has [facility]. Wounds look better with less fibrotic tissue Patient is s/p ORIF for closed right trimalleolar fracture on 08/05/[address] Del Angel, with hospital stay. Patient fractured right ankle from a near syncable episode from standing in her kitchen. Patient noted to have fractured her left ankle with ORIF by Dr Mitchell in November 2019 with bone and skin healing complications. Patient has significant risk factors as far as healing goes these include but are not limited to elevated blood glucose with last Hgb a1c of 8.1% on 08/04/20, history of vitamin D deficiency with level of 28.8 on 12/18/19 and 34.6 on 07/31/20, smoking half ppd down from 2 ppd of cigarettes, history of delayed healing for contralateral ankle fracture both bone and skin, and morbid obesity. Patient is also noted to have a history of PE and is on eliquis and plavix. Discussed with patient normal fracture healing time and discussed this will likely take longer given her history and risk factors. Discussed importance of blood sugar control, losing weight, proper nutrition, vitamin D supplementation, and smoking cessation in optimizing healing potential Patient has returned home from [facility] with home health care. Culture obtained grew very rare coag negative staph which is possible skin contamination. It is noted that patient finished course of clindamycin. Patient had vascular studies obtained 01/17/2020 The right digital-brachial index is .94. The left digital-brachial index is .67. Interpretation Summary: Technically limited bilateral extremity resting noninvasive arterial examination. Normal right digital brachial index and normal right posterior tibial and dorsalis pedis triphasic. Dopplerable waveforms at rest. Abnormal left digital brachial index. Inability to access the left posterior tibial. Normal left dorsalis pedis triphasic waveform. Critical ischemia does not appear to be present bilaterally. Patient relates that she is post to follow with Dr. Salgado's office but never did. Patient to reconsider this note she has new wounds. After verbal consent was obtained p debridement was performed of the ulceration site To continue every other day dressing changes with Santyl, 4 x 4's, Kerlix. Patient is to remain nonweightbearing to her right lower extremity and to utilize cam boot to protect both the fracture site and the wounds. Reviewed concerns and symptoms to watch out for All questions were answered To contact if any questions or concerns To follow-up in 1 week in office for wound care and new XR. Will return to [facility] in 2 weeks This note was generated with Module[employer] dictation software. It may contain incorrect words, spelling, and punctuation that were not noted in checking the note before signing.
== END 2020-10-03 23:59 ==
LOC: WC 10:45
PROVIDERS: PCP Family Medicine; Visit Provider Podiatrist Foot & Ankle Surgery
DX: T81.31XA Disruption of external operation (surgical) wound, not elsewhere classified, initial encounter (principal); W19.XXXA Unspecified fall, initial encounter; I10 Essential (primary) hypertension; E66.01 Morbid (severe) obesity due to excess calories; L97.312 Non-pressure chronic ulcer of right ankle with fat layer exposed; E11.622 Type 2 diabetes mellitus with other skin ulcer; F17.200 Nicotine dependence, unspecified, uncomplicated; Z68.41 Body mass index [BMI] 40.0-44.9, adult; R60.0 Localized edema; E11.42 Type 2 diabetes mellitus with diabetic polyneuropathy; J44.9 Chronic obstructive pulmonary disease, unspecified; E11.51 Type 2 diabetes mellitus with diabetic peripheral angiopathy without gangrene; D50.9 Iron deficiency anemia, unspecified; Z79.4 Long term (current) use of insulin; Z98.84 Bariatric surgery status; Z79.891 Long term (current) use of opiate analgesic; Z86.718 Personal history of other venous thrombosis and embolism; Z79.01 Long term (current) use of anticoagulants; Z79.02 Long term (current) use of antithrombotics/antiplatelets
CPT/HCPCS: 11042; 82962

== ENCOUNTER 2020-10-03 09:24 | Inpatient (IN) | payer MEDICARE, MEDICAID, SELFPAY ==
[2020-10-03] VITALS (10 sets, daily range): BP systolic 94–128; BP diastolic 63–74; PULSE 56–91; RESP 11–20; TEMP 36.4–37.3; O2SAT 93–97; BMI 41.9
--- NOTE | 2020-10-03 09:43 | RAD_ITS ---
STUDY: X-RAY CHEST REASON FOR EXAM: Female, 55 years old. sob TECHNIQUE: AP portable upright chest COMPARISON: 03/16/2020, 12/16/2019 FINDINGS: The lungs are clear and expanded. Chronic scarring is seen in association with the inferior left costophrenic angle. There is no demonstrated pleural abnormality. Normal size heart. Normal mediastinum and alden. Normal visualized pulmonary arteries. Normal visualized aortic arch and descending thoracic aorta. Normal visualized thoracic spine. Normal visualized ribs, clavicles, and shoulders. There is no demonstrated abnormality of the visualized soft tissue structures of the upper abdomen. RAD/Chest 1 View (Portable) IMPRESSION: Normal x-ray examination of the chest. Electronically Signed: Kelsi Liu MD at 10:54 EDT , Service support ,
--- NOTE | 2020-10-03 09:43 | CT_ITS ---
STUDY: CT ABDOMEN AND PELVIS WITH CONTRAST REASON FOR EXAM: Female, 55 years old. abd pain -- IV PO Contrast Technologist Notes LT SIDE ABD PAIN, coronary stents, appendectomy, cholecystectomy, gastric bypass, hernia repair, ulcer repair, right hip surgery x 3, left ankle hardware, NC WITH STENTS, COPD, HTN RADIATION DOSAGE (If Supplied By Facility): CTDIvol = ( 21.27 ) mGy, DLP = ( 1600.06 ) mGycm TECHNIQUE: Transaxial images were obtained from the dome of the diaphragm to the symphysis pubis without oral contrast. Oral and amp; IV Gastrografin and amp; 100mL Isovue-300 was administered. Sagittal and coronal images were reconstructed. Individualized dose optimization techniques were used for this CT. COMPARISON: 04/04/2019 FINDINGS: There is minimal hypoventilatory change seen in association with lung bases bilaterally. No focal lung infiltrate. No pleural effusion. The visualized portions of the heart are within normal limits. Normal liver. There are surgical clips in the gallbladder fossa consistent with a prior cholecystectomy. No biliary ductal dilatation. Normal spleen. There is diffuse enlargement of the pancreas with wally-pancreatic edema suggesting acute pancreatitis. This is new since previous exam. No evidence of pancreatic necrosis or a pancreatic pseudocyst. No pancreatic ductal dilatation. Normal bilateral adrenal glands. Normal right kidney. The right kidney is ptotic in position. Normal left kidney. Normal visualized stomach. Normal small intestine. Normal colon. There are surgical clips in the region of the appendix consistent with a prior appendectomy. There is diffuse atherosclerotic calcification of the abdominal aorta, without a demonstrated aneurysm. Normal inferior vena cava. Normal retroperitoneum. Normal urinary bladder. Prior anterior abdominal wall hernia repair with mesh at the level of the umbilicus. There are diffuse degenerative changes of the visualized lumbar spine. There is mild superior endplate compression of L1, this was present previously. Vacuum disc phenomenon is present at L4-L5. CT/Abdomen/Pelvis WITH Contrast IMPRESSION: Peripancreatic stranding of fat and edema of the pancreas is consistent with acute pancreatitis, this is new when compared to prior study. Electronically Signed: Kelsi Liu MD at 12:47 EDT , Service support ,
--- NOTE | 2020-10-03 09:43 | EKG12_ITS ---
Test Reason : ABD PAIN Blood Pressure : / mmHG Vent. Rate : 055 BPM Atrial Rate : 055 BPM P-R Int : 150 ms QRS Dur : 094 ms QT Int : 448 ms P-R-T Axes : 032 008 011 degrees QTc Int : 428 ms Sinus bradycardia Low voltage QRS Confirmed by LORIE TAFOYA, DESTINY ([id number]), editor managing newspaper MARTHA SCOTT ([id number]) on 10/08/2020 1:00:16 PM Referred By: BENTON Confirmed By:DESTINY MELO MD
[2020-10-03 09:50] LABS: Absolute Lymphocyte Count 3.14 X10^3/uL (0.83-4.51); Absolute Neutrophil Count 17.6 X10^3/uL (2.0-7.7); Basophil# 0.13 X10^3/uL; Basophil% 0.6 % (0-1); Eosinophil# 0.21 X10^3/uL; Eosinophils% 0.9 % (0-5); Hematocrit 42.6 % (37-47); Hemoglobin 13.6 g/dL (12.0-15.0); Lymphocyte # 3.14 X10^3/ul (0.83-4.51); Mean Corp Hgb Conc 31.9 g/dL (32-36); Mean Corpuscular Volume 87.7 fL (81-99); Mean Platelet Vol. 9.2 fl (6.2-12.0); Monocyte# 1.25 X10^3/uL; Monocyte% 5.6 % (0-10); NRBC Flagged by Analyzer 0 % (0-5); Neutrophil # 17.55 X10^3/uL (2.7-7.7); Neutrophil % 78.5 % (47-70); Platelet Count 393 K/mm3 (150-450); RBC Distribution Width CV 14.3 % (11.6-14.6); RBC Distribution Width SD 45.7 fl (35.1-43.9); Red Blood Count 4.86 M/mm3 (4.2-5.4); White Blood Count 22.4 K/mm3 (4.4-11.0)
[2020-10-03] MEDS: Ipratropium/Albuterol Sulfate 3 ML AMPUL.NEB INHALATION ×2 (09:50→19:24)
[2020-10-03] MEDS: Ondansetron 4 MG/2 ML Vial IV (09:57)
[2020-10-03] MEDS: HYDROmorphone 1 MG/ML Syringe 0.5 MG IV (09:57)
[2020-10-03] MEDS: 0.9% Normal Saline 1,000 ML 150 ML IV ×2 (09:58→17:41)
[2020-10-03 10:11] LABS: AST(SGOT) 16 U/L (15-37); Alanine Aminotransfer ALT/SGPT 18 U/L (13-56); Alkaline Phosphatase 196 U/L (45-117); Anion Gap 4 (5-15); BUN 12 mg/dL (7-18); Bilirubin, Direct 0.09 mg/dL (0.00-0.30); Calcium,Total 9.4 mg/dL (8.5-10.1); Chloride 103 mmol/L (98-107); EST Glomerular Filtration Rate 79 mL/min (>60); Est Glom Filt Rate - Afr Amer 95 mL/min (>60); Estimated Creatinine Clearance 65.73 ml/min; Glucose 151 mg/dL (74-106); Lipase 2490 U/L (73-393); Sodium Level 133 mmol/L (136-145); Troponin-I HS 7.8 pg/mL (3.0-53.7)
--- NOTE | 2020-10-03 10:38 | EDS_ITS ---
HPI History of Present Illness Chief Complaint: Abd Pain Informant: patient Onset/Context/Timing Onset: Today Context: - (Awoke with pain) Timing: Continuous Current Severity: Moderate Maximum Severity: Moderate Narrative Narrative: Patient presents via EMS secondary to left upper abdominal pain. She states she was woken from sleep at 1 AM this morning with sharp pain to the left upper quadrant and epigastric region. It does radiate to her back. She denies vomiting or diarrhea. No fever or chills. Patient has had prior appendectomy, cholecystectomy, and gastric bypass surgery. She is currently on Eliquis secondary to a history of PE. Patient denies any urinary symptoms. [facility] Medical History Anemia Asthma Benign essential hypertension Bipolar 2 disorder Bleeding tendency Chest pain Chronic cough Chronic narcotic use COPD (chronic obstructive pulmonary disease) Current use of insulin Delayed surgical wound healing Diabetes Emphysema of lung Gastroesophageal reflux disease High cholesterol Hip osteoarthritis History of pulmonary embolism History of stress test Hypertension Irregular heart beat Irritable bowel Morbid obesity with BMI of 45.0-49.9, adult Myocardial infarct On home oxygen therapy RACHEL (obstructive sleep apnea) Pancreatitis Peptic ulcer Schizoaffective disorder Sleep apnea Smoker Spinal stenosis of lumbar region at multiple levels Thyroid nodule Tobacco abuse Ulcer Vitamin D deficiency Home Medications atorvastatin 80 mg PO QHS 08/22/15 [History Last Taken 12/17/19 22:26] nitroglycerin 0.4 mg SL PRN PRN 11/08/16 [History Last Taken 11/01/17 0.4 MG] pregabalin 75 mg PO TID 03/08/18 [History Last Taken 12/18/19 14:40] risperidone 4 mg PO QHS 03/08/18 [History Last Taken 12/17/19 22:27] tizanidine 6 mg PO TID PRN PRN 03/08/18 [History Last Taken 12/18/19 14:37] trazodone 200 mg PO QHS 03/08/18 [History Last Taken 12/17/19 22:26] furosemide 20 mg PO DAILY 11/20/18 [History Last Taken 12/16/19] lisinopril 20 mg PO QHS 11/20/18 [History Last Taken 12/17/19 22:26] mirabegron 25 mg PO DAILY 11/20/18 [History Last Taken 12/18/19 08:47] apixaban 5 mg PO BID 05/02/19 [History Last Taken 12/18/19 10:22] buspirone 30 mg tablet 30 mg PO BID tab 06/27/19 [History Last Taken 12/18/19 08:46] sucralfate 1 gram tablet 1 g PO QACHS 06/27/19 [History Last Taken 12/18/19 16:13] tiotropium bromide 2.5 mcg/actuation mist for inhalation 2 puff INHALATION DAILY #4 g 09/30/19 [Rx Last Taken 12/18/19 13:02] montelukast 10 mg tablet 10 mg PO QHS #30 tab 10/30/19 [Rx Last Taken 12/17/19 22:26] albuterol sulfate 2.5 mg INHALATION Q4H PRN #180 ml 12/11/19 [Rx Last Taken Unknown] acidophilus-pectin, citrus 2 tab PO BID 12/16/19 [History Last Taken 12/18/19 10:25] insulin glargine 40 units SC BID 12/18/19 [History Last Taken 12/18/19 10:25] albuterol sulfate 2 puff IH Q6H PRN PRN inhaler 01/27/20 [Rx Last Taken Unknown] baclofen 10 mg PO TID tab 01/27/20 [Rx Last Taken Unknown] fluticasone propion-salmeterol 2 puff IH Q12 inhaler 01/27/20 [Rx Last Taken Unknown] polyethylene glycol 3350 17 gm PO BID #60 packet 01/27/20 [Rx Last Taken Unknown] dicyclomine 20 mg PO TIDAC #10 cap 03/16/20 [Rx Last Taken Unknown] metoclopramide HCl 10 mg PO 4X/DAY PRN #20 tab 03/16/20 [Rx Last Taken Unknown] clopidogrel 75 mg PO DAILY 07/31/20 [History Last Taken Unknown] alprazolam 0.5 mg PO TID PRN PRN 3 Days #9 tab 08/11/20 [Rx Last Taken Unknown] amlodipine 2.5 mg PO DAILY #0 tab 08/11/20 [Rx Last Taken Unknown] insulin lispro [Humalog KwikPen Insulin] 10 unit SUBCUT TIDAC #0 ml 08/11/20 [Rx Last Taken Unknown] ipratropium-albuterol 3 ml INHALATION Q6H.RT #90 ml 08/11/20 [Rx Last Taken Unknown] menthol-zinc oxide [Calmoseptine] 1 applic TOPICAL TID #0 g 08/11/20 [Rx Last Taken Unknown] metoprolol succinate 75 mg PO DAILY #30 tab 08/11/20 [Rx Last Taken Unknown] sennosides-docusate sodium [Stool Softener-Stimulant Laxat] 2 tab PO BID PRN PRN #0 tab 08/11/20 [Rx Last Taken Unknown] hydrocodone-acetaminophen [Vicodin] 1 tab PO Q8H PRN 10/03/20 [History Last Taken Unknown] Allergy/AdvReac Type Severity Reaction Status Date / Time amoxicillin Allergy Itching Verified 10/03/20 09:28 erythromycin base Allergy Unknown Verified 10/03/20 09:28 methadone Allergy Itching Verified 10/03/20 09:28 metolazone Allergy Unknown Verified 10/03/20 09:28 Penicillins Allergy Hives Verified 10/03/20 09:28 Sulfa (Sulfonamide Allergy Hives Verified 10/03/20 09:28 Antibiotics) clarithromycin [From Biaxin] AdvReac Nausea Verified 10/03/20 09:28 ibuprofen AdvReac 3 BLEEDING Verified 10/03/20 09:28 ULCERS morphine AdvReac HEADACHE Verified 10/03/20 09:28 oxycodone [From Percocet] AdvReac Itching Verified 10/03/20 09:28 Family History Mother Heart disease Cancer ovarian Father Hypertension Arthritis Hyperlipemia Grandmother Breast cancer Heart disease Grandfather Heart disease Surgical History H/O cardiac catheterization H/O heart artery stent History of appendectomy history of carpal tunnel release left wrist History of carpal tunnel surgery of left wrist History of cholecystectomy History of gastric bypass History of PTCA History of right ankle surgery history of right hip surgery History of tonsillectomy Social History Smoking Status: Current every day smoker tobacco type: cigarettes Tobacco: How many years used: 39 alcohol intake: never substance use type: does not use caffeine: No what type of physical activity do you participate in: none ROS ROS ED Constitutional Constitutional ED: Denies chills or fever(s) Eyes Eyes: Denies change in vision ENT ENT ED: Denies sore throat Cardiovascular Cardiovascular: Denies chest pain Respiratory/Chest Respiratory/Chest: Reports other Details: Wheezing ; Denies cough or dyspnea Gastrointestinal Gastrointestinal: Reports abdominal pain; Denies diarrhea, nausea or vomiting Genitourinary Genitourinary ED: Denies dysuria Musculoskeletal Musculoskeletal: Reports back pain Integumentary Denies rash Neurologic Neurologic: Denies headache(s) or weakness Psychiatric Psychiatric: Denies anxiety or depression Endocrine Endocrinology: Denies polydipsia or polyuria Allergic/Immunologic Allergic/Immunologic ED: Denies urticaria EXAM Physical Exam Const Vital Signs: 10/03/20 09:25 10/03/20 09:50 10/03/20 12:01 Temperature 97.6 F L Temperature Source Oral Pulse Rate 56 L 60 58 L Respiratory Rate 16 19 H 14 Respiratory Pattern Tachypnea Blood Pressure 115/68 94/63 Blood Pressure Mean 83 73 Pulse Ox 97 97 Oxygen Delivery Method Room Air Room Air Oxygen Flow Rate (L/min) 10/03/20 12:50 Temperature Temperature Source Pulse Rate 61 Respiratory Rate 11 L Respiratory Pattern Blood Pressure 116/72 Blood Pressure Mean 86 Pulse Ox 95 Oxygen Delivery Method Nasal Cannula Oxygen Flow Rate (L/min) 2 Positive well nourished and well developed General Appearance ED: well developed HEENT Reports normocephalic and head/scalp atraumatic Eyes PERRL and EOMs intact bilaterally Neck supple Chest Wall inspection of chest normal and palpation of chest normal Resp normal respiratory effort Auscultation: wheezes expiratory wheezes and throughout Cardio regular rate and regular rhythm GI Auscultation: hypoactive bowel sounds Palpation: soft and tender epigastric and LUQ; Negative for guarding or rebound tenderness present Neuro oriented x3 Sensorium / Orientation: alert Psych mental status grossly normal Skin no rashes or lesions noted MDM MDM MDM Narrative Medical decision making narrative: Patient was given a breathing treatment for her wheezing. Chest x-ray, EKG, labs, CT abdomen pelvis are obtained. Lab Data Attestation: I reviewed the patient's lab results. Labs: Laboratory Results - last 24 hr 10/03/20 10/03/20 10/03/20 09:30 09:30 11:55 WBC 22.4 H RBC 4.86 Hgb 13.6 Hct 42.6 MCV 87.7 MCH 28.0 MCHC 31.9 L RDW Std Deviation 45.7 H RDW Coeff of [place] 14.3 Plt Count 393 MPV 9.2 Immature Gran % (Auto) 0.400 Neut % (Auto) 78.5 H Lymph % (Auto) 14.0 L [place] % (Auto) 5.6 Eos % (Auto) 0.9 Baso % (Auto) 0.6 Absolute Neuts (auto) 17.6 H Absolute Lymphs (auto) 3.14 Nucleated RBC % 0 Sodium 133 L Potassium 4.0 Chloride 103 Carbon Dioxide 26.0 Anion Gap 4 L BUN 12 Creatinine 0.80 Estim Creat Clear Calc 65.73 Est GFR (MDRD) Af Amer 95 Est GFR (MDRD) Non-Af 79 BUN/Creatinine Ratio 15.0 Glucose 151 H Calcium 9.4 Total Bilirubin 0.60 Direct Bilirubin 0.09 AST 16 ALT 18 Alkaline Phosphatase 196 H Troponin I High Sens 7.8 Total Protein 7.0 Albumin 3.0 L Globulin 4.0 Lipase 2490 H Urine Color Yellow Urine Clarity Clear Urine pH 6.5 Ur Specific [place] 1.010 Urine Protein 15 H Urine Glucose (UA) Normal Urine Ketones Negative Urine Occult Blood Negative Urine Nitrite Negative Urine Bilirubin Negative Urine Urobilinogen Normal Ur Leukocyte Esterase Negative Urine RBC 0 SEEN Urine WBC 0 SEEN Ur Squamous Epith Cells 0 SEEN Urine Bacteria 0 SEEN Urine Mucus 0 SEEN Radiography Chest X-Ray - ED: 1 View, Read by ED Physician, Normal, Heart, Lungs and Mediastinum Diagnostic Testing: Radiology Impression Abdomen/Pelvis CT 10/03/20 09:43 IMPRESSION: Peripancreatic stranding of fat and edema of the pancreas is consistent with acute pancreatitis, this is new when compared to prior study. Electronically Signed: Kelsi Liu MD at 12:47 EDT , Service support , Chest X-Ray 10/03/20 09:43 IMPRESSION: Normal x-ray examination of the chest. Electronically Signed: Kelsi Liu MD at 10:54 EDT , Service support , EKG Initial EKG: Attestation: I personally reviewed and interpreted this EKG as follows: Interpretation: Sinus Bradycardia (Sinus bradycardia at 55 bpm. No acute ischemia.) Treatment and Re-Evaluation Comments:: Patient is given IV fluids. She is given multiple doses of Dilaudid for pain control. Patient's labs are consistent with pancreatitis. CT scan does show peripancreatic inflammation. Patient has had a prior cholecystectomy. I will speak with hospitalist regarding admission for treatment. Discharge Plan Triage Chief Complaint: Abd Pain ED Provider: Breann Nguyễn Dx/Rx/DC Orders Clinical Impression: Acute pancreatitis Prescriptions: No Action sucralfate 1 gram tablet 1 g PO QACHS RF: 0 atorvastatin 80 MG tablet 80 mg PO QHS RF: 0 nitroglycerin 0.4 MG tablet, sublingual 0.4 mg SL PRN PRN (Reason: Cardiac/Chest Pain) RF: 0 risperidone 4 mg tablet 4 mg PO QHS RF: 0 trazodone 100 MG tablet 200 mg PO QHS RF: 0 pregabalin 75 MG capsule 75 mg PO TID RF: 0 tizanidine 4 MG tablet 6 mg PO TID PRN PRN (Reason: Spasms) RF: 0 buspirone 30 mg tablet 30 mg PO BID RF: 0 furosemide 20 MG tablet 20 mg PO DAILY RF: 0 mirabegron 25 MG tablet extended release 24 hr 25 mg PO DAILY RF: 0 lisinopril 20 MG tablet 20 mg PO QHS RF: 0 apixaban 5 MG tablet 5 mg PO BID RF: 0 acidophilus-pectin, citrus 1 TABLET tablet 2 tab PO BID RF: 0 insulin glargine 100 UNITS/ML insulin pen 40 units SC BID RF: 0 polyethylene glycol 3350 17 GM packet 17 gm PO BID Qty: 60 RF: 0 baclofen 10 MG tablet 10 mg PO TID RF: 0 albuterol sulfate 1 PUFF inhaler 2 puff IH Q6H PRN PRN (Reason: SOB &/or Wheezing ) RF: 0 fluticasone propion-salmeterol 1 PUFF inhaler 2 puff IH Q12 RF: 0 dicyclomine 10 MG capsule 20 mg PO TIDAC Qty: 10 RF: 0 metoclopramide HCl 10 MG tablet 10 mg PO 4X/DAY PRN (Reason: Headache) Qty: 20 RF: 0 clopidogrel 75 mg tablet 75 mg PO DAILY RF: 0 insulin lispro [Humalog KwikPen Insulin] 100 unit/mL Insulin Pen 10 unit subcut TIDAC Qty: 0 RF: 0 amlodipine 2.5 mg Tablet 2.5 mg PO DAILY Qty: 0 RF: 0 metoprolol succinate 25 mg Tablet Extended Release 24 Hr 75 mg PO DAILY Qty: 30 RF: 0 ipratropium-albuterol 0.5 mg-3 mg(2.5 mg base)/3 mL Solution For Nebulization 3 ml inhalation Q6H.RT Qty: 90 RF: 0 menthol-zinc oxide [Calmoseptine] 0.44-20.6 % Ointment 1 applic topical TID Qty: 0 RF: 0 sennosides-docusate sodium [Stool Softener-Stimulant Laxat] 8.6-50 mg Tablet 2 tab PO BID PRN PRN (Reason: Constipation) Qty: 0 RF: 0 alprazolam 0.5 MG tablet 0.5 mg PO TID PRN PRN (Reason: Anxiety) 3 Days Qty: 9 RF: 0 hydrocodone-acetaminophen [Vicodin] 5-300 mg Tablet 1 tab PO Q8H PRN (Reason: Pain (Scale Score 7-10)) RF: 0 tiotropium bromide 2.5 mcg/actuation mist 2 puff INHALATION DAILY Qty: 4 RF: 3 montelukast 10 mg tablet 10 mg PO QHS Qty: 30 RF: 5 albuterol sulfate 2.5 mg /3 mL (0.083 %) solution for nebulization 2.5 mg INHALATION Q4H PRN (Reason: Sob &/Or Wheezing) Qty: 180 RF: 3 Primary Care Provider: Janel Taylor Referrals: Janel Taylor MD [Primary Care Provider] - Disposition Disposition: Acute Care Hospital [facility]
[2020-10-03] MEDS: HYDROmorphone 0.5 MG/0.5 ML SYRINGE IV ×2 (10:50→12:56)
[2020-10-03] MEDS: 0.9% Normal Saline 1,000 ML 999 ML IV ×2 (10:50→12:56)
[2020-10-03] MEDS: HYDROmorphone 1 MG/ML Syringe IV ×3 (11:48→19:54)
[2020-10-03 12:00] LABS: Bacteria 0 SEEN /hpf (None Seen); Mucous, Urine 0 SEEN /hpf (<or=2+); Red Blood Cells-Urine 0 SEEN /hpf (0-5); Squamous Epithelial Cells - UA 0 SEEN /hpf (5-10); White Blood Cells 0 SEEN /hpf (0-5)
[2020-10-03 12:06] LABS: Color, Urine Yellow (Yellow); Glucose, Dipstick Normal (Normal); Ketone-Dipstick Negative (Negative); Leukocyte Esterase-Dipstick Negative /ul (Negative); Nitrite-Dipstick Negative (Negative); Occult Blood-Urine Negative /ul (Negative); Protein-Dipstick 15 mg/dl (Negative); Urine Bilirubin Dipstick Negative (Negative); Urine Clarity Clear (Clear); Urine Urobilinogen Normal (Normal); Urine pH 6.5 (5.0 - 8.0)
--- NOTE | 2020-10-03 15:05 | HP.PCM.HOS_ITS ---
Documented by User: Meseret Delgado NP, CRUISE COORDINATOR-C 10/03/20 15:45 HPI - General General Date of Admission: 10/03/20 Date of Service: 10/03/20 Chief Complaint: Abdominal pain. HPI Narrative TALAT HAN, is a 55 F who presents to the Emergency Room due to abdominal pain. Patient reports abdominal pain began early this morning and woke her from sleep. She denies vomiting, diarrhea. Reports nausea. She denies alcohol use. Denies history of pancreatitis. Reports pain is left upper abdomen and epigastric region. She has a past medical history of type 2 diabetes mellitus, chronic COPD with chronic toxic respiratory failure, CAD with history of PCI x5, history of PE on Eliquis, history of peptic ulcer disease/GERD, chronic pain syndrome, hypertension, hyperlipidemia, iron deficiency anemia, tobacco depe ndence, schizophrenia, anxiety, depression, RACHEL. [facility] Medical History (Updated 10/03/20 @ 15:37 by Liz Toledo) Anemia Asthma Benign essential hypertension Bleeding tendency Chest pain Chronic cough Chronic narcotic use COPD (chronic obstructive pulmonary disease) Current use of insulin Delayed surgical wound healing Diabetes Emphysema of lung Gastroesophageal reflux disease High cholesterol Hip osteoarthritis History of pulmonary embolism History of stress test Hypertension Irregular heart beat Irritable bowel Morbid obesity with BMI of 45.0-49.9, adult Myocardial infarct On home oxygen therapy RACHEL (obstructive sleep apnea) Pancreatitis Peptic ulcer Schizoaffective disorder Sleep apnea Smoker Spinal stenosis of lumbar region at multiple levels Thyroid nodule Tobacco abuse Ulcer Vitamin D deficiency Home Medications atorvastatin 80 mg PO QHS 08/22/15 [History Last Taken 12/17/19 22:26] nitroglycerin 0.4 mg SL PRN PRN 11/08/16 [History Last Taken 11/01/17 0.4 MG] pregabalin 75 mg PO TID 03/08/18 [History Last Taken 12/18/19 14:40] risperidone 4 mg PO QHS 03/08/18 [History Last Taken 12/17/19 22:27] tizanidine 6 mg PO TID PRN PRN 03/08/18 [History Last Taken 12/18/19 14:37] trazodone 200 mg PO QHS 03/08/18 [History Last Taken 12/17/19 22:26] furosemide 20 mg PO DAILY 11/20/18 [History Last Taken 12/16/19] lisinopril 20 mg PO QHS 11/20/18 [History Last Taken 12/17/19 22:26] mirabegron 25 mg PO DAILY 11/20/18 [History Last Taken 12/18/19 08:47] apixaban 5 mg PO BID 05/02/19 [History Last Taken 12/18/19 10:22] buspirone 30 mg tablet 30 mg PO BID tab 06/27/19 [History Last Taken 12/18/19 08:46] sucralfate 1 gram tablet 1 g PO QACHS 06/27/19 [History Last Taken 12/18/19 16:13] tiotropium bromide 2.5 mcg/actuation mist for inhalation 2 puff INHALATION DAILY #4 g 09/30/19 [Rx Last Taken 12/18/19 13:02] montelukast 10 mg tablet 10 mg PO QHS #30 tab 10/30/19 [Rx Last Taken 12/17/19 22:26] albuterol sulfate 2.5 mg INHALATION Q4H PRN #180 ml 12/11/19 [Rx Last Taken Unk nown] acidophilus-pectin, citrus 2 tab PO BID 12/16/19 [History Last Taken 12/18/19 10:25] insulin glargine 40 units SC BID 12/18/19 [History Last Taken 12/18/19 10:25] albuterol sulfate 2 puff IH Q6H PRN PRN inhaler 01/27/20 [Rx Last Taken Unknown] baclofen 10 mg PO TID tab 01/27/20 [Rx Last Taken Unknown] fluticasone propion-salmeterol 2 puff IH Q12 inhaler 01/27/20 [Rx Last Taken Unknown] polyethylene glycol 3350 17 gm PO BID #60 packet 01/27/20 [Rx Last Taken Unknown] dicyclomine 20 mg PO TIDAC #10 cap 03/16/20 [Rx Last Taken Unknown] metoclopramide HCl 10 mg PO 4X/DAY PRN #20 tab 03/16/20 [Rx Last Taken Unknown] clopidogrel 75 mg PO DAILY 07/31/20 [History Last Taken Unknown] alprazolam 0.5 mg PO TID PRN PRN 3 Days #9 tab 08/11/20 [Rx Last Taken Unknown] amlodipine 2.5 mg PO DAILY #0 tab 08/11/20 [Rx Last Taken Unknown] insulin lispro [Humalog KwikPen Insulin] 10 unit SUBCUT TIDAC #0 ml 08/11/20 [Rx Last Taken Unknown] ipratropium-albuterol 3 ml INHALATION Q6H.RT #90 ml 08/11/20 [Rx Last Taken Unknown] menthol-zinc oxide [Calmoseptine] 1 applic TOPICAL TID #0 g 08/11/20 [Rx Last Taken Unknown] metoprolol succinate 75 mg PO DAILY #30 tab 08/11/20 [Rx Last Taken Unknown] sennosides-docusate sodium [Stool Softener-Stimulant Laxat] 2 tab PO BID PRN PRN #0 tab 08/11/20 [Rx Last Taken Unknown] hydrocodone-acetaminophen [Vicodin] 1 tab PO Q8H PRN 10/03/20 [History Last Taken Unknown] Allergy/AdvReac Type Severity Reaction Status Date / Time amoxicillin Allergy Itching Verified 10/03/20 09:28 erythromycin base Allergy Unknown Verified 10/03/20 09:28 methadone Allergy Itching Verified 10/03/20 09:28 metolazone Allergy Unknown Verified 10/03/20 09:28 Penicillins Allergy Hives Verified 10/03/20 09:28 Sulfa (Sulfonamide Allergy Hives Verified 10/03/20 09:28 Antibiotics) clarithromycin [From Biaxin] AdvReac Nausea Verified 10/03/20 09:28 ibuprofen AdvReac 3 BLEEDING Verified 10/03/20 09:28 ULCERS morphine AdvReac HEADACHE Verified 10/03/20 09:28 oxycodone [From Percocet] AdvReac Itching Verified 10/03/20 09:28 Family History Mother Heart disease Cancer ovarian Father Hypertension Arthritis Hyperlipemia Grandmother Breast cancer Heart disease Grandfather Heart disease Surgical History H/O cardiac catheterization H/O heart artery stent History of appendectomy history of carpal tunnel release left wrist History of carpal tunnel surgery of left wrist History of cholecystectomy History of gastric bypass History of PTCA History of right ankle surgery history of right hip surgery History of tonsillectomy Social History Smoking Status: Current every day smoker tobacco type: cigarettes Tobacco: How many years used: 39 alcohol intake: never substance use type: does not use caffeine: No what type of physical activity do you participate in: none ROS Constitutional Constitutional: Denies change in weight, chills, fatigue, fever(s) or weakness Cardiovascular Cardiovascular: Denies chest pain, edema, lightheadedness, palpitations or syncope Respiratory/Chest Respiratory/Chest: Denies cough, dyspnea, productive cough, shortness of breath at rest, shortness of breath with exertion or wheezing Gastrointestinal Gastrointestinal: Reports abdominal pain; Denies constipation, diarrhea, nausea or vomiting Genitourinary Genitourinary: Denies burning urination, difficulty urinating, dysuria, hematuria, urinary frequency, urinary incontinence or urinary urgency Musculoskeletal Musculoskeletal: Denies back pain, joint pain or muscle weakness Integumentary Integumentary: Denies erythema, lesions, rash or wounds Neurologic Neurologic: Denies abnormal speech, confusion, dizziness, focal weakness, numbness, paresthesias, seizure-like activity or syncope Psychiatric Psychiatric: Denies anxiety or depression Hematologic/Lymphatic Hematologic/Lymphatic: Denies anemia, easy bleeding or easy bruising Allergic/Immunologic Allergic/Immunologic: Denies hives or asthma Vital Signs Vital Signs Vital Signs: 10/03/20 09:25 10/03/20 09:50 10/03/20 12:01 Temperature 97.6 F L Temperature Source Oral Pulse Rate 56 L 60 58 L Respiratory Rate 16 19 H 14 Respiratory Pattern Tachypnea Blood Pressure 115/68 94/63 Blood Pressure Mean 83 73 Pulse Ox 97 97 Oxygen Delivery Method Room Air Room Air Oxygen Flow Rate (L/min) 10/03/20 12:50 10/03/20 13:32 10/03/20 13:39 Temperature 98.7 F Temperature Source Oral Pulse Rate 61 64 64 Respiratory Rate 11 L 15 15 Respiratory Pattern Blood Pressure 116/72 121/67 H 121/67 H Blood Pressure Mean 86 85 85 Pulse Ox 95 96 96 Oxygen Delivery Method Nasal Cannula Nasal Cannula Nasal Cannula Oxygen Flow Rate (L/min) 2 2 2 Weight Weight: 236 lb 12.423 oz Body Mass Index (BMI) 41.9 Physical Exam Const alert, oriented x3 and no apparent distress Orientation / Consciousness: awake, oriented to person, oriented to place and oriented to time HEENT normocephalic and moist oral mucous membranes Eyes PERRL, EOMs intact bilaterally and conjunctivae normal Neck no lymphadenopathy Resp normal respiratory effort and clear to auscultation bilaterally Cardio regular rate, regular rhythm and no murmurs Peripheral Pulses: pulses 2+ throughout GI normal to inspection, nondistended, normoactive bowel sounds and non-distended Palpation: tender Extremity normal to inspection Skin no rashes or lesions noted Lesions: no lesions Rashes: no rashes Trauma: no lacerations or abrasions Neuro CN's II-XII intact bilaterally, no focal motor deficits, no sensory deficits noted and deep tendon reflexes 2+ bilaterally Psych mental status grossly normal and affect normal Results Lab / Micro Data Result Diagrams: 10/03/20 09:30 10/03/20 09:30 Labs: Laboratory Results - last 24 hr 10/03/20 09:30: WBC 22.4 H, RBC 4.86, Hgb 13.6, Hct 42.6, MCV 87.7, MCH 28.0, MCHC 31.9 L, RDW Std Deviation 45.7 H, RDW Coeff of [place] 14.3, Plt Count 393, MPV 9.2, Immature Gran % (Auto) 0.400, Neut % (Auto) 78.5 H, Lymph % (Auto) 14.0 L, [place] % (Auto) 5.6, Eos % (Auto) 0.9, Baso % (Auto) 0.6, Absolute Neuts (auto) 17.6 H, Absolute Lymphs (auto) 3.14, Nucleated RBC % 0 10/03/20 09:30: Sodium 133 L, Potassium 4.0, Chloride 103, Carbon Dioxide 26.0, Anion Gap 4 L, BUN 12, Creatinine 0.80, Estim Creat Clear Calc 65.73, Est GFR (MDRD) Af Amer 95, Est GFR (MDRD) Non-Af 79, BUN/Creatinine Ratio 15.0, Glucose 151 H, Calcium 9.4, Total Bilirubin 0.60, Direct Bilirubin 0.09, AST 16, ALT 18, Alkaline Phosphatase 196 H, Troponin I High Sens 7.8, Total Protein 7.0, Albumin 3.0 L, Globulin 4.0, Lipase 2490 H 10/03/20 11:55: Urine Color Yellow, Urine Clarity Clear, Urine pH 6.5, Ur Specific [place] 1.010, Urine Protein 15 H, Urine Glucose (UA) Normal, Urine Ketones Negative, Urine Occult Blood Negative, Urine Nitrite Negative, Urine Bilirubin Negative, Urine Urobilinogen Normal, Ur Leukocyte Esterase Negative, Urine RBC 0 SEEN, Urine WBC 0 SEEN, Ur Squamous Epith Cells 0 SEEN, Urine Bacteria 0 SEEN, Urine Mucus 0 SEEN Radiology Impression Abdomen/Pelvis CT 10/03/20 09:43 IMPRESSION: Peripancreatic stranding of fat and edema of the pancreas is consistent with acute pancreatitis, this is new when compared to prior study. Electronically Signed: Kelsi Liu MD at 12:47 EDT , Service support , Chest X-Ray 10/03/20 09:43 IMPRESSION: Normal x-ray examination of the chest. Electronically Signed: Kelsi Liu MD at 10:54 EDT , Service support , Assessment & Plan Assessment/Plan (1) Acute pancreatitis: PLAN: 1. Acute pancreatitis- unclear etiology. IV fluids. PRN pain regimen. Patient is status post cholecystectomy. CT scans consistent with peripancreatic inflammation. 2. Leukocytosis-suspect reactive secondary to #1. IV fluids. Repeat BMP in a.m. 3. Type 2 diabetes mellitus-hemoglobin A1c August 2020 8.1%. Accu-Cheks with sliding scale insulin. Continue home insulin regimen. 4. Chronic COPD with chronic hypoxic respiratory failure- Patient wears supplemental oxygen with exertion only. Continue supplement oxygen to maintain O2 at or above 90%. Follows with Dr. Willoughby, pulmonary medicine. 5. CAD status post PCI x5-on Eliquis, Plavix, statin, lisinopril, metoprolol. 6. History of PE-on Eliquis. 7. History of peptic ulcer disease/GERD-continue omeprazole regimen. 8. Chronic pain syndrome-continue home Lyrica, tizanidine regimen. 9. Hypertension-continue amlodipine, lisinopril, metoprolol. 10. Hyperlipidemia-continue statin regimen. 11. Iron deficiency anemia-stable, trend CBC. 12. Tobacco dependence-encourage cessation. 13. Schizophrenia/anxiety/depression-continue home BuSpar, Risperdal and trazodone regimen. 14. RACHEL-continue CPAP nightly. DVT prophylaxis- Eliquis This patient was seen by ERROL Lunsford under the supervision of Dr. He. Documented by User: Dr. Justin He, 10/03/20 16:54 HPI - General General Date of Admission: 10/03/20 [facility] Medical History (Updated 10/03/20 @ 15:37 by Liz Toledo) Anemia Asthma Benign essential hypertension Bleeding tendency Chest pain Chronic cough Chronic narcotic use COPD (chronic obstructive pulmonary disease) Current use of insulin Delayed surgical wound healing Diabetes Emphysema of lung Gastroesophageal reflux disease High cholesterol Hip osteoarthritis History of pulmonary embolism History of stress test Hypertension Irregular heart beat Irritable bowel Morbid obesity with BMI of 45.0-49.9, adult Myocardial infarct On home oxygen therapy RACHEL (obstructive sleep apnea) Pancreatitis Peptic ulcer Schizoaffective disorder Sleep apnea Smoker Spinal stenosis of lumbar region at multiple levels Thyroid nodule Tobacco abuse Ulcer Vitamin D deficiency Home Medications atorvastatin 80 mg PO QHS 08/22/15 [History Last Taken 12/17/19 22:26] nitroglycerin 0.4 mg SL PRN PRN 11/08/16 [History Last Taken 11/01/17 0.4 MG] pregabalin 75 mg PO TID 03/08/18 [History Last Taken 12/18/19 14:40] risperidone 4 mg PO QHS 03/08/18 [History Last Taken 12/17/19 22:27] tizanidine 6 mg PO TID PRN PRN 03/08/18 [History Last Taken 12/18/19 14:37] trazodone 200 mg PO QHS 03/08/18 [History Last Taken 12/17/19 22:26] furosemide 20 mg PO DAILY 11/20/18 [History Last Taken 12/16/19] lisinopril 20 mg PO QHS 11/20/18 [History Last Taken 12/17/19 22:26] mirabegron 25 mg PO DAILY 11/20/18 [History Last Taken 12/18/19 08:47] apixaban 5 mg PO BID 05/02/19 [History Last Taken 12/18/19 10:22] buspirone 30 mg tablet 30 mg PO BID tab 06/27/19 [History Last Taken 12/18/19 08:46] sucralfate 1 gram tablet 1 g PO QACHS 06/27/19 [History Last Taken 12/18/19 16:13] tiotropium bromide 2.5 mcg/actuation mist for inhalation 2 puff INHALATION DAILY #4 g 09/30/19 [Rx Last Taken 12/18/19 13:02] montelukast 10 mg tablet 10 mg PO QHS #30 tab 10/30/19 [Rx Last Taken 12/17/19 22:26] albuterol sulfate 2.5 mg INHALATION Q4H PRN #180 ml 12/11/19 [Rx Last Taken Unknown] acidophilus-pectin, citrus 2 tab PO BID 12/16/19 [History Last Taken 12/18/19 10:25] insulin glargine 40 units SC BID 12/18/19 [History Last Taken 12/18/19 10:25] albuterol sulfate 2 puff IH Q6H PRN PRN inhaler 01/27/20 [Rx Last Taken Unknown] baclofen 10 mg PO TID tab 01/27/20 [Rx Last Taken Unknown] fluticasone propion-salmeterol 2 puff IH Q12 inhaler 01/27/20 [Rx Last Taken Un known] polyethylene glycol 3350 17 gm PO BID #60 packet 01/27/20 [Rx Last Taken Unknown] dicyclomine 20 mg PO TIDAC #10 cap 03/16/20 [Rx Last Taken Unknown] metoclopramide HCl 10 mg PO 4X/DAY PRN #20 tab 03/16/20 [Rx Last Taken Unknown] clopidogrel 75 mg PO DAILY 07/31/20 [History Last Taken Unknown] alprazolam 0.5 mg PO TID PRN PRN 3 Days #9 tab 08/11/20 [Rx Last Taken Unknown] amlodipine 2.5 mg PO DAILY #0 tab 08/11/20 [Rx Last Taken Unknown] insulin lispro [Humalog KwikPen Insulin] 10 unit SUBCUT TIDAC #0 ml 08/11/20 [Rx Last Taken Unknown] ipratropium-albuterol 3 ml INHALATION Q6H.RT #90 ml 08/11/20 [Rx Last Taken Unknown] menthol-zinc oxide [Calmoseptine] 1 applic TOPICAL TID #0 g 08/11/20 [Rx Last Taken Unknown] metoprolol succinate 75 mg PO DAILY #30 tab 08/11/20 [Rx Last Taken Unknown] sennosides-docusate sodium [Stool Softener-Stimulant Laxat] 2 tab PO BID PRN PRN #0 tab 08/11/20 [Rx Last Taken Unknown] hydrocodone-acetaminophen [Vicodin] 1 tab PO Q8H PRN 10/03/20 [History Last Taken Unknown] Allergy/AdvReac Type Severity Reaction Status Date / Time amoxicillin Allergy Itching Verified 10/03/20 09:28 erythromycin base Allergy Unknown Verified 10/03/20 09:28 methadone Allergy Itching Verified 10/03/20 09:28 metolazone Allergy Unknown Verified 10/03/20 09:28 Penicillins Allergy Hives Verified 10/03/20 09:28 Sulfa (Sulfonamide Allergy Hives Verified 10/03/20 09:28 Antibiotics) clarithromycin [From Biaxin] AdvReac Nausea Verified 10/03/20 09:28 ibuprofen AdvReac 3 BLEEDING Verified 10/03/20 09:28 ULCERS morphine AdvReac HEADACHE Verified 10/03/20 09:28 oxycodone [From Percocet] AdvReac Itching Verified 10/03/20 09:28 Family History Mother Heart disease Cancer ovarian Father Hypertension Arthritis Hyperlipemia Grandmother Breast cancer Heart disease Grandfather Heart disease Surgical History H/O cardiac catheterization H/O heart artery stent History of appendectomy history of carpal tunnel release left wrist History of carpal tunnel surgery of left wrist History of cholecystectomy History of gastric bypass History of PTCA History of right ankle surgery history of right hip surgery History of tonsillectomy Social History Smoking Status: Current every day smoker tobacco type: cigarettes Tobacco: How many years used: 39 alcohol intake: never substance use type: does not use caffeine: No what type of physical activity do you participate in: none Results Lab / Micro Data Result Diagrams: 10/03/20 09:30 10/03/20 09:30 Charges/Coding Addendum Addendum: Patient was seen and examined independently of Meseret Delgado, patient came to the emergency room today at [facility] with complaints of abdominal pain which she says is located in her left mid abdominal quadrant, she denies any vomiting or diarrhea. She states the pain began early this morning. Work-up in the emergency room included labs which showed an elev ated lipase, she also had an elevated white blood cell count. On examination she appeared uncomfortable secondary to abdominal pain. Vital signs as documented. Skin warm and dry and without overt rashes. Neck without JVD, thyroid appears normal, trachea is midline, neck is supple. Lungs clear, normal air movement was noted. Heart exam notable for regular rhythm, normal sounds and absence of murmurs, rubs or gallops. Abdomen-patient is morbidly obese, her abdomen is tender chiefly in the left mid abdominal quadrant, there is no rebound abdominal tenderness, bowel sounds are present. Extremities nonedematous, no cyanosis was noted, no clubbing was noted. Neuro: Cranial nerves II through XII are grossly intact, no focal motor deficits were noted, sensation to light touch and pinprick is intact, motor exam 5/5 throughout. Psych: Patient is alert and oriented x3, she does not appear anxious or depressed, she does not appear agitated. Etiology of the pancreatitis is unknown at this time, patient will be admitted to [facility], she will receive IV fluids and narcotics for pain. Patient will have a lipid profile tomorrow morning. I have reviewed Meseret Danny's history and physical including her medical assessment and plan of care and endorse it. Visit Charges Inpatient E&M: 94490 Init Hosp L3
[2020-10-03] MEDS: Baclofen 10 MG Tablet PO (15:23)
[2020-10-03] MEDS: Pregabalin 75 MG Capsule PO (15:23)
[2020-10-03] MEDS: Dicyclomine 10 MG Capsule 20 MG PO (15:23)
[2020-10-03] MEDS: HYDROcodone Bitartrate/Apap 5/325 Tablet PO (17:40)
[2020-10-03] MEDS: proCHLORPERazine 10 MG/2 ML Vial 5 MG IV (17:40)
[2020-10-03] MEDS: 0.9% Saline Lock 10 ML Syringe IV (17:41)
[2020-10-03] MEDS: Collagenase 30gm Tube 1 APPLIC TOPICAL (17:46)
[2020-10-03] MEDS: Sucralfate 1 GM Tablet PO (17:46)
[2020-10-03] MEDS: Budesonide Respules 0.5 MG/2 ML AMPUL.NEB. INHALATION (19:25)
[2020-10-03] MEDS: Menthol/Lanolin/Calamine/Znox 113 GM Tube 1 APPLIC TOPICAL (22:02)
[2020-10-03 22:16] LABS: Bedside Glucose 144 mg/dL (70-110)
[2020-10-04] VITALS (11 sets, daily range): BP systolic 118–151; BP diastolic 55–90; PULSE 64–113; RESP 16–24; TEMP 36.4–37.4; O2SAT 95–98
[2020-10-04] MEDS: 0.9% Normal Saline 1,000 ML 150 ML IV ×4 (00:03→21:30)
[2020-10-04] MEDS: Ipratropium/Albuterol Sulfate 3 ML AMPUL.NEB INHALATION ×3 (01:16→18:58)
[2020-10-04] MEDS: Ondansetron 4 MG/2 ML Vial IV ×2 (02:13→09:24)
[2020-10-04] MEDS: HYDROmorphone 1 MG/ML Syringe 0.5 MG IV ×2 (02:29→09:30)
[2020-10-04] MEDS: proCHLORPERazine 10 MG/2 ML Vial 5 MG IV ×2 (05:04→11:05)
[2020-10-04] MEDS: Menthol/Lanolin/Calamine/Znox 113 GM Tube 1 APPLIC TOPICAL ×3 (05:07→21:36)
[2020-10-04] MEDS: HYDROcodone Bitartrate/Apap 5/325 Tablet PO ×2 (05:53→11:35)
[2020-10-04 06:01] LABS: Bedside Glucose 137 mg/dL (70-110)
[2020-10-04 06:53] LABS: ALB/GLOB Ratio 0.7 RATIO (0.9-2.4); AST(SGOT) 14 U/L (15-37); Alanine Aminotransfer ALT/SGPT 14 U/L (13-56); Albumin, Serum 2.7 g/dL (3.2-5.0); Alkaline Phosphatase 192 U/L (45-117); Anion Gap 4 (5-15); BUN 6 mg/dL (7-18); BUN/Creat Ratio 10.2 RATIO (10-20); Calcium,Total 8.7 mg/dL (8.5-10.1); Chloride 107 mmol/L (98-107); Cholesterol 137 mg/dL (200); Creatinine, Serum 0.59 mg/dL (0.55-1.02); EST Glomerular Filtration Rate 113 mL/min (>60); Est Glom Filt Rate - Afr Amer 137 mL/min (>60); Estimated Creatinine Clearance 89.12 ml/min; Globulin 3.7 g/dL (2.2-4.2); Glucose 125 mg/dL (74-106); High Density Lipoprotein 33 mg/dL; Potassium 3.2 mmol/L (3.5-5.1); Protein, Total 6.4 g/dL (6.4-8.2); Sodium Level 136 mmol/L (136-145); Triglycerides 181 mg/dL; Very Low Density Lipoprotein 36 mg/dL (5-40)
[2020-10-04 06:56] LABS: Absolute Lymphocyte Count 0.83 X10^3/uL (0.83-4.51); Absolute Neutrophil Count 21.6 X10^3/uL (2.0-7.7); Basophil# 0.07 X10^3/uL; Basophil% 0.3 % (0-1); Eosinophils% 0.4 % (0-5); Hematocrit 44.3 % (37-47); Hemoglobin 14.2 g/dL (12.0-15.0); Lymphocyte # 0.83 X10^3/ul (0.83-4.51); Lymphocyte % 3.5 % (19-41); Mean Corp Hgb Conc 32.1 g/dL (32-36); Mean Corpuscular Hgb 27.8 pg (27.0-32.0); Mean Corpuscular Volume 86.7 fL (81-99); Mean Platelet Vol. 9.4 fl (6.2-12.0); Monocyte# 1.19 X10^3/uL; NRBC Flagged by Analyzer 0 % (0-5); Neutrophil # 21.64 X10^3/uL (2.7-7.7); Neutrophil % 90.2 % (47-70); POSITIVE DIFFERENTIAL YES; Platelet Count 340 K/mm3 (150-450); RBC Distribution Width CV 14.6 % (11.6-14.6); RBC Distribution Width SD 46.3 fl (35.1-43.9); Red Blood Count 5.11 M/mm3 (4.2-5.4)
[2020-10-04 07:11] LABS: Differential Indicated SCAN CRITERIA MET
[2020-10-04] MEDS: Budesonide Respules 0.5 MG/2 ML AMPUL.NEB. INHALATION ×2 (07:15→18:59)
[2020-10-04 09:11] LABS: Differential Comment SCANNED
[2020-10-04] MEDS: 0.9% Saline Lock 10 ML Syringe IV ×3 (09:24→17:44)
[2020-10-04] MEDS: Metoprolol(XL)Succ 25 MG Tablet 75 MG PO (09:33)
[2020-10-04] MEDS: amLODIPine 2.5 MG Tablet PO (09:35)
[2020-10-04] MEDS: APIXABAN 5 MG TABLET PO ×2 (09:35→21:37)
[2020-10-04] MEDS: busPIRone 15 MG TABLET 30 MG PO ×2 (09:37→21:36)
[2020-10-04] MEDS: ALPRAZolam 0.5 MG Tablet PO ×2 (11:04→17:44)
[2020-10-04] MEDS: tiZANidine HCl 2 MG Tablet 6 MG PO ×2 (11:04→17:44)
[2020-10-04] MEDS: Dicyclomine 10 MG Capsule 20 MG PO ×2 (11:09→17:43)
[2020-10-04] MEDS: Clopidogrel Bisulfate 75 MG Tablet PO (11:36)
[2020-10-04] MEDS: Mirabegron 25 MG TAB.ER.24H PO (11:38)
[2020-10-04 11:55] LABS: Bedside Glucose 142 mg/dL (70-110)
--- NOTE | 2020-10-04 12:42 | PN.HOSP_ITS ---
Documented by User: Meseret Delgado NP, PIN PUSHER-C 10/04/20 12:52 Subjective Subjective Patient seen and examined. Reports nausea and vomiting overnight. Continued significant abdominal pain. Denies fever, chills. Objective Data Objective Data Vital Signs: Vital Signs Temp Pulse Resp BP Pulse Ox 99.0 F 103 H 18 140/90 H 97 10/04/20 08:10 10/04/20 09:33 10/04/20 08:10 10/04/20 08:10 10/04/20 08:10 Oxygen Flow Rate (L/min) 2 Oxygen Delivery Method Nasal Cannula Weight: 236 lb 12.423 oz Body Mass Index (BMI) 41.9 Intake & Output: Intake and Output for Last 24 Hours 10/02/20 10/03/20 10/04/20 23:59 23:59 23:59 Intake Total 3100.0 / 3100.0 2054 / 5 Output Total 200 / 200 800 / 800 Balance 2900.0 / 2900.0 1255 / 1255 Medical Nutrition Assessment Dietitian: Nutrition Therapy Diagnosis Start: 10/04/20 10:16 Freq: Status: Active Protocol: Document 10/04/20 10:32 PRESLEY (Rec: 10/04/20 10:32 PRESLEY [id number]) Nutrition Malnutrition Evidence of Malnutrition Exists No Clinical Problem Altered Nutrient-Related Laboratory Values Etiology related to endocrine dysfunction and pancreatitis Signs/Symptoms as evidenced by A1c=8.1, adyxhj=8051 Status Active Problem Recommendation Dietitian Recommendations/Changes Will change diet to Cardiac Consistent CHO Will provide diet education at time of follow up if indicated Lab / Micro Data Result Diagrams: 10/04/20 06:00 10/04/20 06:00 Labs: Laboratory Results - last 24 hr 10/03/20 22:04: POC Glucose 144 H 10/04/20 05:57: POC Glucose 137 H 10/04/20 06:00: WBC 24.0 H, RBC 5.11, Hgb 14.2, Hct 44.3, MCV 86.7, MCH 27.8, MCHC 32.1, RDW Std Deviation 46.3 H, RDW Coeff of Kaycee 14.6, Plt Count 340, MPV 9.4, Immature Gran % (Auto) 0.600, Neut % (Auto) 90.2 H, Lymph % (Auto) 3.5 L, Faulkner % (Auto) 5.0, Eos % (Auto) 0.4, Baso % (Auto) 0.3, Absolute Neuts (auto) 21.6 H, Absolute Lymphs (auto) 0.83, Nucleated RBC % 0, Differential Comment SCANNED 10/04/20 06:00: Sodium 136, Potassium 3.2 L, Chloride 107, Carbon Dioxide 25.0, Anion Gap 4 L, BUN 6 L, Creatinine 0.59, Estim Creat Clear Calc 89.12, Est GFR (MDRD) Af Amer 137, Est GFR (MDRD) Non-Af 113, BUN/Creatinine Ratio 10.2, Gluc ose 125 H, Calcium 8.7, Total Bilirubin 0.60, AST 14 L, ALT 14, Alkaline Phosphatase 192 H, Total Protein 6.4, Albumin 2.7 L, Globulin 3.7, Albumin/Globulin Ratio 0.7 L, Triglycerides 181, Cholesterol 137, LDL Cholesterol 68, VLDL Cholesterol 36, HDL Cholesterol 33 L 10/04/20 11:40: POC Glucose 142 H Radiography Diagnostic Testing: Radiology Impression Abdomen/Pelvis CT 10/03/20 09:43 IMPRESSION: Peripancreatic stranding of fat and edema of the pancreas is consistent with acute pancreatitis, this is new when compared to prior study. Electronically Signed: Kelsi Liu MD at 12:47 EDT , Service support , Physical Exam Const alert and oriented x3 Constitutional Narrative: Appears uncomfortable. Orientation / Consciousness: awake, oriented to person, oriented to place and oriented to time HEENT normocephalic and moist oral mucous membranes Eyes PERRL, EOMs intact bilaterally and conjunctivae normal Neck no lymphadenopathy Resp normal respiratory effort and clear to auscultation bilaterally Cardio regular rate, regular rhythm and no murmurs Peripheral Pulses: pulses 2+ throughout GI normal to inspection, nondistended, normoactive bowel sounds and non-distended Palpation: tender Extremity normal to inspection Skin no rashes or lesions noted Lesions: no lesions Rashes: no rashes Trauma: no lacerations or abrasions Neuro CN's II-XII intact bilaterally, no focal motor deficits, no sensory deficits noted and deep tendon reflexes 2+ bilaterally Psych mental status grossly normal and affect normal Assessment & Plan Assessment/Plan (1) Acute pancreatitis: PLAN: 1. Acute pancreatitis- unclear etiology. IV fluids. PRN pain regimen. Patient is status post cholecystectomy. CT scans consistent with peripancreatic inflammation. 2. Leukocytosis-suspect reactive secondary to #1. IV fluids. Repeat BMP in a.m. 3. Type 2 diabetes mellitus-hemoglobin A1c August 2020 8.1%. Accu-Cheks with sliding scale insulin. Continue home insulin regimen. 4. Chronic COPD with chronic hypoxic respiratory failure-Continue supplement oxygen to maintain O2 at or above 90%. Follows with Dr. Willoughby, pulmonary medicine. 5. CAD status post PCI x5-on Eliquis, Plavix, statin, lisinopril, metoprolol. 6. History of PE-on Eliquis. 7. History of peptic ulcer disease/GERD-continue omeprazole regimen. 8. Chronic pain syndrome-continue home Lyrica, tizanidine regimen. 9. Hypertension-continue amlodipine, lisinopril, metoprolol. 10. Hyperlipidemia-continue statin regimen. 11. Iron deficiency anemia-stable, trend CBC. 12. Tobacco dependence-encourage cessation. 13. Schizophrenia/anxiety/depression-continue home BuSpar, Risperdal and trazodone regimen. 14. RACHEL-continue CPAP nightly. DVT prophylaxis- Eliquis This patient was seen by Meseret Delgado, TICO-C under the supervision of Dr. He. Documented by User: Dr. Justin He DO 10/04/20 13:23 Objective Data Lab / Micro Data Result Diagrams: 10/04/20 06:00 10/04/20 06:00 Charges/Coding Addendum Addendum: Patient was seen and examined today independently of Meseret Delgado, she is still having mid abdominal pain and today she has been having nausea. Luigi chiang's white blood cell count remains elevated today but she is afebrile. On examination she appeared uncomfortable due to abdominal pain and nausea. Vital signs as documented. Skin warm and dry and without overt rashes. Neck without JVD, thyroid appears normal, trachea is midline, neck is supple. Lungs clear, normal air movement was noted. Heart exam notable for regular rhythm, normal sounds and absence of murmurs, rubs or gallops. Abdomen-patient has generalized abdominal tenderness over the mid abdomen in the left abdomen area, bowel sounds are present in all 4 quadrants, no abdominal tenderness was noted. Extremities nonedematous, no cyanosis was noted, no clubbing was noted. Neuro: Cranial nerves II through XII are grossly intact, no focal motor deficits were noted, sensation to light touch and pinprick is intact, motor exam 5/5 throughout. Psych: Patient is alert and oriented x3, she does not appear anxious or depressed, she does not appear agitated. We will continue IV fluid administration and IV pain medications. I have reviewed Meseret Delgado's progress note including her medical assessment and plan of care and endorse it. Visit Charges Inpatient E&M: 16791 Subs Hosp L2
[2020-10-04] MEDS: Potassium Chloride Oral Tablet 20 MEQ 40 MEQ PO (14:06)
[2020-10-04] MEDS: proMETHazine 25 MG Tablet 12.5 MG PO ×3 (14:06→21:55)
[2020-10-04] MEDS: Pregabalin 75 MG Capsule PO ×2 (14:07→21:43)
--- NOTE | 2020-10-04 14:08 | NURSING ---
AFTER RECEIVING NEW ORDERS FROM [facility], SOFÍA Schwarz, RN/CHARGE WENT TO MEDICATE PT AND REPORTED PT WAS SNORING. ASKED THIS NURSE IF SHE SHOULD WAKE HER TO GIVE MEDS. THIS NURSE TOLD HER TO LEAVE PT SLEEPING.
[2020-10-04] MEDS: Albuterol 2.5 MG/3 ML VIAL.NEB. INHALATION (15:01)
[2020-10-04 16:31] LABS: Bedside Glucose 88 mg/dL (70-110)
[2020-10-04] MEDS: HYDROmorphone 1 MG/ML Syringe IV ×2 (17:45→22:42)
[2020-10-04] MEDS: Sucralfate 1 GM Tablet PO (21:36)
[2020-10-04] MEDS: traZODone 100 MG Tablet 200 MG PO (21:36)
[2020-10-04] MEDS: Atorvastatin Calcium 80 MG Tablet PO (21:37)
[2020-10-04] MEDS: Montelukast 10 MG Tablet PO (21:37)
[2020-10-04] MEDS: RisperiDONE 2 MG Tablet 4 MG PO (21:37)
[2020-10-04] MEDS: Lisinopril 20 MG Tablet PO (21:37)
[2020-10-04 21:56] LABS: Bedside Glucose 97 mg/dL (70-110)
[2020-10-05] MEDS: Ipratropium/Albuterol Sulfate 3 ML AMPUL.NEB INHALATION ×2 (01:43→07:23)
[2020-10-05 01:45] VITALS: PULSE 95; RESP 20
[2020-10-05] MEDS: 0.9% Normal Saline 1,000 ML 150 ML IV (03:17)
[2020-10-05 03:21] VITALS: BP 142/68; PULSE 88; RESP 20; TEMP 37; O2SAT 95
[2020-10-05] MEDS: HYDROmorphone 1 MG/ML Syringe IV (03:32)
[2020-10-05] MEDS: Ondansetron 4 MG/2 ML Vial IV (03:32)
[2020-10-05] MEDS: Dicyclomine 10 MG Capsule 20 MG PO (06:04)
[2020-10-05] MEDS: Menthol/Lanolin/Calamine/Znox 113 GM Tube 1 APPLIC TOPICAL (06:04)
[2020-10-05] MEDS: Sucralfate 1 GM Tablet PO (06:04)
[2020-10-05] MEDS: proMETHazine 25 MG Tablet 12.5 MG PO (06:07)
[2020-10-05] MEDS: Pregabalin 75 MG Capsule PO (06:09)
[2020-10-05 06:40] LABS: Bedside Glucose 85 mg/dL (70-110)
[2020-10-05 06:49] LABS: Absolute Lymphocyte Count 1.44 X10^3/uL (0.83-4.51); Absolute Neutrophil Count 19.8 X10^3/uL (2.0-7.7); Basophil# 0.06 X10^3/uL; Basophil% 0.3 % (0-1); Eosinophil# 0.17 X10^3/uL; Eosinophils% 0.7 % (0-5); Hematocrit 39.7 % (37-47); Hemoglobin 12.8 g/dL (12.0-15.0); Lymphocyte # 1.44 X10^3/ul (0.83-4.51); Lymphocyte % 6.3 % (19-41); Mean Corp Hgb Conc 32.2 g/dL (32-36); Mean Corpuscular Hgb 28.1 pg (27.0-32.0); Mean Corpuscular Volume 87.1 fL (81-99); Mean Platelet Vol. 9.6 fl (6.2-12.0); Monocyte# 1.39 X10^3/uL; Monocyte% 6.1 % (0-10); NRBC Flagged by Analyzer 0 % (0-5); Neutrophil # 19.81 X10^3/uL (2.7-7.7); Neutrophil % 86.2 % (47-70); Platelet Count 271 K/mm3 (150-450); RBC Distribution Width CV 14.7 % (11.6-14.6); Red Blood Count 4.56 M/mm3 (4.2-5.4)
[2020-10-05 07:13] LABS: Anion Gap 5 (5-15); BUN 3 mg/dL (7-18); BUN/Creat Ratio 6.8 RATIO (10-20); Calcium,Total 8.8 mg/dL (8.5-10.1); Chloride 107 mmol/L (98-107); Creatinine, Serum 0.44 mg/dL (0.55-1.02); EST Glomerular Filtration Rate 157 mL/min (>60); Est Glom Filt Rate - Afr Amer 190 mL/min (>60); Glucose 75 mg/dL (74-106); Sodium Level 136 mmol/L (136-145)
[2020-10-05 07:23] VITALS: PULSE 92; RESP 20; O2SAT 95
[2020-10-05] MEDS: Budesonide Respules 0.5 MG/2 ML AMPUL.NEB. INHALATION (07:23)
[2020-10-05] MEDS: HYDROcodone Bitartrate/Apap 5/325 Tablet PO (08:22)
[2020-10-05] MEDS: ALPRAZolam 0.5 MG Tablet PO (08:22)
[2020-10-05 09:23] VITALS: BP 131/67; PULSE 92; RESP 16; TEMP 37.2; O2SAT 94
--- NOTE | 2020-10-05 10:02 | PCM.DC ---
Discharge Instructions Diet Discharge Diet: Light diet - advance as tolerated Activity Discharge Activity: Return to Normal Activity Dressing / Incision Call your doctor if you observe: Uncontrolled pain Follow Up Care Test Results: Test results from this visit will be discussed in further detail at your follow-up appointment, if applicable. Discharge Plan Admission Admit Date/Time: 10/03/20 13:54 Primary Reason for Your Visit: Pancreatitis Attending Provider: Wang Rosen Primary Care Provider: Janel Taylor Discharge Orders/Prescriptions Prescriptions: New potassium chloride [K-Tab] 20 mEq tablet extended release 40 meq PO DAILY Qty: 60 RF: 0 Continued sucralfate 1 gram tablet 1 g PO QACHS RF: 0 atorvastatin 80 MG tablet 80 mg PO QHS RF: 0 nitroglycerin 0.4 MG tablet, sublingual 0.4 mg SL PRN PRN (Reason: Cardiac/Chest Pain) RF: 0 risperidone 4 mg tablet 4 mg PO QHS RF: 0 trazodone 100 MG tablet 200 mg PO QHS RF: 0 pregabalin 75 MG capsule 75 mg PO TID RF: 0 tizanidine 4 MG tablet 6 mg PO TID PRN PRN (Reason: Spasms) RF: 0 buspirone 30 mg tablet 30 mg PO BID RF: 0 furosemide 20 MG tablet 20 mg PO DAILY RF: 0 mirabegron 25 MG tablet extended release 24 hr 25 mg PO DAILY RF: 0 lisinopril 20 MG tablet 20 mg PO QHS RF: 0 apixaban 5 MG tablet 5 mg PO BID RF: 0 acidophilus-pectin, citrus 1 TABLET tablet 2 tab PO BID RF: 0 insulin glargine 100 UNITS/ML insulin pen 40 units SC BID RF: 0 polyethylene glycol 3350 17 GM packet 17 gm PO BID Qty: 60 RF: 0 baclofen 10 MG tablet 10 mg PO TID RF: 0 albuterol sulfate 1 PUFF inhaler 2 puff IH Q6H PRN PRN (Reason: SOB &/or Wheezing ) RF: 0 fluticasone propion-salmeterol 1 PUFF inhaler 2 puff IH Q12 RF: 0 dicyclomine 10 MG capsule 20 mg PO TIDAC Qty: 10 RF: 0 metoclopramide HCl 10 MG tablet 10 mg PO 4X/DAY PRN (Reason: Headache) Qty: 20 RF: 0 clopidogrel 75 mg tablet 75 mg PO DAILY RF: 0 insulin lispro [Humalog KwikPen Insulin] 100 unit/mL Insulin Pen 10 unit subcut TIDAC Qty: 0 RF: 0 amlodipine 2.5 mg Tablet 2.5 mg PO DAILY Qty: 0 RF: 0 metoprolol succinate 25 mg Tablet Extended Release 24 Hr 75 mg PO DAILY Qty: 30 RF: 0 ipratropium-albuterol 0.5 mg-3 mg(2.5 mg base)/3 mL Solution For Nebulization 3 ml inhalation Q6H.RT Qty: 90 RF: 0 menthol-zinc oxide [Calmoseptine] 0.44-20.6 % Ointment 1 applic topical TID Qty: 0 RF: 0 sennosides-docusate sodium [Stool Softener-Stimulant Laxat] 8.6-50 mg Tablet 2 tab PO BID PRN PRN (Reason: Constipation) Qty: 0 RF: 0 alprazolam 0.5 MG tablet 0.5 mg PO TID PRN PRN (Reason: Anxiety) 3 Days Qty: 9 RF: 0 hydrocodone-acetaminophen 5-300 mg Tablet 1 tab PO Q8H PRN (Reason: Pain (Scale Score 7-10)) RF: 0 tiotropium bromide 2.5 mcg/actuation mist 2 puff INHALATION DAILY Qty: 4 RF: 3 montelukast 10 mg tablet 10 mg PO QHS Qty: 30 RF: 5 albuterol sulfate 2.5 mg /3 mL (0.083 %) solution for nebulization 2.5 mg INHALATION Q4H PRN (Reason: Sob &/Or Wheezing) Qty: 180 RF: 3 Referrals / Follow Up: Janel Taylor MD [Primary Care Provider] - Within 1 Week Disposition Disposition (needs filled in before D/C Order can be placed): Home, Self Care
[2020-10-05] MEDS: guaiFENesin 1,200 MG Tablet 1200 MG PO (10:08)
[2020-10-05] MEDS: Potassium Chloride Oral Tablet 20 MEQ 40 MEQ PO (10:08)
[2020-10-05] MEDS: tiZANidine HCl 2 MG Tablet 6 MG PO (10:08)
[2020-10-05] MEDS: APIXABAN 5 MG TABLET PO (10:09)
[2020-10-05] MEDS: busPIRone 15 MG TABLET 30 MG PO (10:10)
[2020-10-05 10:12] VITALS: PULSE 92
[2020-10-05] MEDS: Metoprolol(XL)Succ 25 MG Tablet 75 MG PO (10:12)
--- NOTE | 2020-10-05 10:12 | DS.PCM_ITS ---
Documented by User: Meseret Delgado NP, [employer] 10/05/20 10:19 Providers Date of Admission: 10/03/20 Date of Discharge: 10/05/20 Primary Care Physician: Dr. Janel Taylor MD Reason For Visit: ACUTE PANCREATITIS Diagnosis Discharge Diagnosis (1) Acute pancreatitis: Status: Acute Code(s): K85.90 - Acute pancreatitis without necrosis or infection, unspecified Medications at Discharge Home Medications atorvastatin 80 mg PO QHS 08/22/15 nitroglycerin 0.4 mg SL PRN PRN 11/08/16 pregabalin 75 mg PO TID 03/08/18 risperidone 4 mg PO QHS 03/08/18 tizanidine 6 mg PO TID PRN PRN 03/08/18 trazodone 200 mg PO QHS 03/08/18 furosemide 20 mg PO DAILY 11/20/18 lisinopril 20 mg PO QHS 11/20/18 mirabegron 25 mg PO DAILY 11/20/18 apixaban 5 mg PO BID 05/02/19 buspirone 30 mg tablet 30 mg PO BID tab 06/27/19 sucralfate 1 gram tablet 1 g PO QACHS 06/27/19 tiotropium bromide 2.5 mcg/actuation mist for inhalation 2 puff INHALATION DAILY #4 g 09/30/19 montelukast 10 mg tablet 10 mg PO QHS #30 tab 10/30/19 albuterol sulfate 2.5 mg INHALATION Q4H PRN #180 ml 12/11/19 acidophilus-pectin, citrus 2 tab PO BID 12/16/19 insulin glargine 40 units SC BID 12/18/19 albuterol sulfate 2 puff IH Q6H PRN PRN inhaler 01/27/20 baclofen 10 mg PO TID tab 01/27/20 fluticasone propion-salmeterol 2 puff IH Q12 inhaler 01/27/20 polyethylene glycol 3350 17 gm PO BID #60 packet 01/27/20 dicyclomine 20 mg PO TIDAC #10 cap 03/16/20 metoclopramide HCl 10 mg PO 4X/DAY PRN #20 tab 03/16/20 clopidogrel 75 mg PO DAILY 07/31/20 alprazolam 0.5 mg PO TID PRN PRN 3 Days #9 tab 08/11/20 amlodipine 2.5 mg PO DAILY #0 tab 08/11/20 insulin lispro [Humalog KwikPen Insulin] 10 unit SUBCUT TIDAC #0 ml 08/11/20 ipratropium-albuterol 3 ml INHALATION Q6H.RT #90 ml 08/11/20 menthol-zinc oxide [Calmoseptine] 1 applic TOPICAL TID #0 g 08/11/20 metoprolol succinate 75 mg PO DAILY #30 tab 08/11/20 sennosides-docusate sodium [Stool Softener-Stimulant Laxat] 2 tab PO BID PRN PRN #0 tab 08/11/20 hydrocodone-acetaminophen 1 tab PO Q8H PRN 10/03/20 potassium chloride [K-Tab] 40 meq PO DAILY #60 tab 10/05/20 Hospital Course Operations None Procedures None Summary of Care Provided Minutes Spent on Discharge: 35 Hospital Course: Patient is a 55-year-old female admitted 10/03/2020 due to abdominal pain. 1. Acute pancreatitis- unclear etiology. Patient is status post cholecystectomy. CT scans consistent with peripancreatic inflammation. Denies alcohol use. Lipid profile unremarkable. Patient tolerating a diet, abdominal pain improved. Advance diet as tolerated. Help with PCP in 1 week. 2. Leukocytosis-suspect reactive secondary to #1. Afebrile. No evidence of infection, UA and chest x-ray unremarkable. Recommend repeat CBC in 1 week. 3. Type 2 diabetes mellitus-hemoglobin A1c August 2020 8.1%. Continue home insulin regimen. 4. Chronic COPD with chronic hypoxic respiratory failure-Continue supplement oxygen to maintain O2 at or above 90%. Follows with Dr. Willoughby, pulmonary medicine. 5. CAD status post PCI x5-on Eliquis, Plavix, statin, lisinopril, metoprolol. 6. History of PE-on Eliquis. 7. History of peptic ulcer disease/GERD-continue omeprazole regimen. 8. Chronic pain syndrome-continue home Lyrica, tizanidine regimen. 9. Hypertension-continue amlodipine, lisinopril, metoprolol. 10. Hyperlipidemia-continue statin regimen. 11. Iron deficiency anemia-stable. 12. Tobacco dependence-encourage cessation. 13. Schizophrenia/anxiety/depression-continue home BuSpar, Risperdal and trazodone regimen. 14. RACHEL-continue CPAP nightly. Physical Exam Const alert and oriented x3 Constitutional Narrative: Appears uncomfortable. Orientation / Consciousness: awake, oriented to person, oriented to place and oriented to time HEENT normocephalic and moist oral mucous membranes Eyes PERRL, EOMs intact bilaterally and conjunctivae normal Neck no lymphadenopathy Resp normal respiratory effort and clear to auscultation bilaterally Cardio regular rate, regular rhythm and no murmurs Peripheral Pulses: pulses 2+ throughout GI normal to inspection, nondistended, normoactive bowel sounds and non-distended Palpation: tender Extremity normal to inspection Skin no rashes or lesions noted Lesions: no lesions Rashes: no rashes Trauma: no lacerations or abrasions Neuro CN's II-XII intact bilaterally, no focal motor deficits, no sensory deficits noted and deep tendon reflexes 2+ bilaterally Psych mental status grossly normal and affect normal Patient seen and examined prior to discharge. Physical assessment as noted above. Patient is stable for discharge with follow up recommendations as noted above. This patient was seen by ERROL Lunsford under the supervision of Dr. Rosen. Medical Records Data Medical Nutrition Assessment Dietitian: Nutrition Therapy Diagnosis Start: 10/04/20 10:16 Freq: Status: Active Protocol: Document 10/04/20 10:32 PRESLEY (Rec: 10/04/20 10:32 PRESLEY [id number]) Nutrition Malnutrition Evidence of Malnutrition Exists No Clinical Problem Altered Nutrient-Related Laboratory Values Etiology related to endocrine dysfunction and pancreatitis Signs/Symptoms as evidenced by A1c=8.1, ueaeln=[id number] Status Active Problem Recommendation Dietitian Recommendations/Changes Will change diet to Cardiac Consistent CHO Will provide diet education at time of follow up if indicated Weight / BMI Weight Weight: 236 lb 12.423 oz Body Mass Index (BMI) 41.9 ABG / Lab / Microbiology Data Result Diagrams: 10/05/20 06:10 10/05/20 06:10 Laboratory: Laboratory Results - last 24 hr 10/04/20 11:40: POC Glucose 142 H 10/04/20 16:14: POC Glucose 88 10/04/20 21:35: POC Glucose 97 10/05/20 06:10: WBC 23.0 H, RBC 4.56, Hgb 12.8, Hct 39.7, MCV 87.1, MCH 28.1, MCHC 32.2, RDW Std Deviation 47.0 H, RDW Coeff of [place] 14.7 H, Plt Count 271, MPV 9.6, Immature Gran % (Auto) 0.400, Neut % (Auto) 86.2 H, Lymph % (Auto) 6.3 L, [place] % (Auto) 6.1, Eos % (Auto) 0.7, Baso % (Auto) 0.3, Absolute Neuts (auto) 19.8 H, Absolute Lymphs (auto) 1.44, Nucleated RBC % 0 10/05/20 06:10: Sodium 136, Potassium 3.0 L, Chloride 107, Carbon Dioxide 24.0, Anion Gap 5, BUN 3 L, Creatinine 0.44 L, Estim Creat Clear Calc 119.50, Est GFR (MDRD) Af Amer 190, Est GFR (MDRD) Non-Af 157, BUN/Creatinine Ratio 6.8 L, Glucose 75, Calcium 8.8 10/05/20 06:12: POC Glucose 85 D/C Instructions Discharge Diet: Light diet - advance as tolerated Call your doctor if you observe: Uncontrolled pain Meaningful Use Info Meaningful Use Diagnoses (Choose all that apply): None applicable Discharge Plan Admission Admit Date/Time: 10/03/20 13:54 Primary Reason for Your Visit: Pancreatitis Attending Provider: Wang Rosen Primary Care Provider: Janel Taylor Discharge Orders/Prescriptions Prescriptions: New potassium chloride [K-Tab] 20 mEq tablet extended release 40 meq PO DAILY Qty: 60 RF: 0 Continued sucralfate 1 gram tablet 1 g PO QACHS RF: 0 atorvastatin 80 MG tablet 80 mg PO QHS RF: 0 nitroglycerin 0.4 MG tablet, sublingual 0.4 mg SL PRN PRN (Reason: Cardiac/Chest Pain) RF: 0 risperidone 4 mg tablet 4 mg PO QHS RF: 0 trazodone 100 MG tablet 200 mg PO QHS RF: 0 pregabalin 75 MG capsule 75 mg PO TID RF: 0 tizanidine 4 MG tablet 6 mg PO TID PRN PRN (Reason: Spasms) RF: 0 buspirone 30 mg tablet 30 mg PO BID RF: 0 furosemide 20 MG tablet 20 mg PO DAILY RF: 0 mirabegron 25 MG tablet extended release 24 hr 25 mg PO DAILY RF: 0 lisinopril 20 MG tablet 20 mg PO QHS RF: 0 apixaban 5 MG tablet 5 mg PO BID RF: 0 acidophilus-pectin, citrus 1 TABLET tablet 2 tab PO BID RF: 0 insulin glargine 100 UNITS/ML insulin pen 40 units SC BID RF: 0 polyethylene glycol 3350 17 GM packet 17 gm PO BID Qty: 60 RF: 0 baclofen 10 MG tablet 10 mg PO TID RF: 0 albuterol sulfate 1 PUFF inhaler 2 puff IH Q6H PRN PRN (Reason: SOB &/or Wheezing ) RF: 0 fluticasone propion-salmeterol 1 PUFF inhaler 2 puff IH Q12 RF: 0 dicyclomine 10 MG capsule 20 mg PO TIDAC Qty: 10 RF: 0 metoclopramide HCl 10 MG tablet 10 mg PO 4X/DAY PRN (Reason: Headache) Qty: 20 RF: 0 clopidogrel 75 mg tablet 75 mg PO DAILY RF: 0 insulin lispro [Humalog KwikPen Insulin] 100 unit/mL Insulin Pen 10 unit subcut TIDAC Qty: 0 RF: 0 amlodipine 2.5 mg Tablet 2.5 mg PO DAILY Qty: 0 RF: 0 metoprolol succinate 25 mg Tablet Extended Release 24 Hr 75 mg PO DAILY Qty: 30 RF: 0 ipratropium-albuterol 0.5 mg-3 mg(2.5 mg base)/3 mL Solution For Nebulization 3 ml inhalation Q6H.RT Qty: 90 RF: 0 menthol-zinc oxide [Calmoseptine] 0.44-20.6 % Ointment 1 applic topical TID Qty: 0 RF: 0 sennosides-docusate sodium [Stool Softener-Stimulant Laxat] 8.6-50 mg Tablet 2 tab PO BID PRN PRN (Reason: Constipation) Qty: 0 RF: 0 alprazolam 0.5 MG tablet 0.5 mg PO TID PRN PRN (Reason: Anxiety) 3 Days Qty: 9 RF: 0 hydrocodone-acetaminophen 5-300 mg Tablet 1 tab PO Q8H PRN (Reason: Pain (Scale Score 7-10)) RF: 0 tiotropium bromide 2.5 mcg/actuation mist 2 puff INHALATION DAILY Qty: 4 RF: 3 montelukast 10 mg tablet 10 mg PO QHS Qty: 30 RF: 5 albuterol sulfate 2.5 mg /3 mL (0.083 %) solution for nebulization 2.5 mg INHALATION Q4H PRN (Reason: Sob &/Or Wheezing) Qty: 180 RF: 3 Referrals / Follow Up: Janel Taylor MD [Primary Care Provider] - Within 1 Week Disposition Disposition (needs filled in before D/C Order can be placed): Home, Self Care Documented by User: Dr. Wang Rosen MD 10/05/20 12:05 Providers Date of Admission: 10/03/20 Reason For Visit: ACUTE PANCREATITIS Medications at Discharge Home Medications atorvastatin 80 mg PO QHS 08/22/15 nitroglycerin 0.4 mg SL PRN PRN 11/08/16 pregabalin 75 mg PO TID 03/08/18 risperidone 4 mg PO QHS 03/08/18 tizanidine 6 mg PO TID PRN PRN 03/08/18 trazodone 200 mg PO QHS 03/08/18 furosemide 20 mg PO DAILY 11/20/18 lisinopril 20 mg PO QHS 11/20/18 mirabegron 25 mg PO DAILY 11/20/18 apixaban 5 mg PO BID 05/02/19 buspirone 30 mg tablet 30 mg PO BID tab 06/27/19 sucralfate 1 gram tablet 1 g PO QACHS 06/27/19 tiotropium bromide 2.5 mcg/actuation mist for inhalation 2 puff INHALATION DAILY #4 g 09/30/19 montelukast 10 mg tablet 10 mg PO QHS #30 tab 10/30/19 albuterol sulfate 2.5 mg INHALATION Q4H PRN #180 ml 12/11/19 acidophilus-pectin, citrus 2 tab PO BID 12/16/19 insulin glargine 40 units SC BID 12/18/19 albuterol sulfate 2 puff IH Q6H PRN PRN inhaler 01/27/20 baclofen 10 mg PO TID tab 01/27/20 fluticasone propion-salmeterol 2 puff IH Q12 inhaler 01/27/20 polyethylene glycol 3350 17 gm PO BID #60 packet 01/27/20 dicyclomine 20 mg PO TIDAC #10 cap 03/16/20 metoclopramide HCl 10 mg PO 4X/DAY PRN #20 tab 03/16/20 clopidogrel 75 mg PO DAILY 07/31/20 alprazolam 0.5 mg PO TID PRN PRN 3 Days #9 tab 08/11/20 amlodipine 2.5 mg PO DAILY #0 tab 08/11/20 insulin lispro [Humalog KwikPen Insulin] 10 unit SUBCUT TIDAC #0 ml 08/11/20 ipratropium-albuterol 3 ml INHALATION Q6H.RT #90 ml 08/11/20 menthol-zinc oxide [Calmoseptine] 1 applic TOPICAL TID #0 g 08/11/20 metoprolol succinate 75 mg PO DAILY #30 tab 08/11/20 sennosides-docusate sodium [Stool Softener-Stimulant Laxat] 2 tab PO BID PRN PRN #0 tab 08/11/20 hydrocodone-acetaminophen 1 tab PO Q8H PRN 10/03/20 potassium chloride [K-Tab] 40 meq PO DAILY #60 tab 10/05/20 ABG / Lab / Microbiology Data Result Diagrams: 10/05/20 06:10 10/05/20 06:10 Discharge Plan Admission Admit Date/Time: 10/03/20 13:54 Primary Reason for Your Visit: Pancreatitis Attending Provider: Wang Rosen Primary Care Provider: Janel Taylor Discharge Orders/Prescriptions Prescriptions: New potassium chloride [K-Tab] 20 mEq tablet extended release 40 meq PO DAILY Qty: 60 RF: 0 Continued sucralfate 1 gram tablet 1 g PO QACHS RF: 0 atorvastatin 80 MG tablet 80 mg PO QHS RF: 0 nitroglycerin 0.4 MG tablet, sublingual 0.4 mg SL PRN PRN (Reason: Cardiac/Chest Pain) RF: 0 risperidone 4 mg tablet 4 mg PO QHS RF: 0 trazodone 100 MG tablet 200 mg PO QHS RF: 0 pregabalin 75 MG capsule 75 mg PO TID RF: 0 tizanidine 4 MG tablet 6 mg PO TID PRN PRN (Reason: Spasms) RF: 0 buspirone 30 mg tablet 30 mg PO BID RF: 0 furosemide 20 MG tablet 20 mg PO DAILY RF: 0 mirabegron 25 MG tablet extended release 24 hr 25 mg PO DAILY RF: 0 lisinopril 20 MG tablet 20 mg PO QHS RF: 0 apixaban 5 MG tablet 5 mg PO BID RF: 0 acidophilus-pectin, citrus 1 TABLET tablet 2 tab PO BID RF: 0 insulin glargine 100 UNITS/ML insulin pen 40 units SC BID RF: 0 polyethylene glycol 3350 17 GM packet 17 gm PO BID Qty: 60 RF: 0 baclofen 10 MG tablet 10 mg PO TID RF: 0 albuterol sulfate 1 PUFF inhaler 2 puff IH Q6H PRN PRN (Reason: SOB &/or Wheezing ) RF: 0 fluticasone propion-salmeterol 1 PUFF inhaler 2 puff IH Q12 RF: 0 dicyclomine 10 MG capsule 20 mg PO TIDAC Qty: 10 RF: 0 metoclopramide HCl 10 MG tablet 10 mg PO 4X/DAY PRN (Reason: Headache) Qty: 20 RF: 0 clopidogrel 75 mg tablet 75 mg PO DAILY RF: 0 insulin lispro [Humalog KwikPen Insulin] 100 unit/mL Insulin Pen 10 unit subcut TIDAC Qty: 0 RF: 0 amlodipine 2.5 mg Tablet 2.5 mg PO DAILY Qty: 0 RF: 0 metoprolol succinate 25 mg Tablet Extended Release 24 Hr 75 mg PO DAILY Qty: 30 RF: 0 ipratropium-albuterol 0.5 mg-3 mg(2.5 mg base)/3 mL Solution For Nebulization 3 ml inhalation Q6H.RT Qty: 90 RF: 0 menthol-zinc oxide [Calmoseptine] 0.44-20.6 % Ointment 1 applic topical TID Qty: 0 RF: 0 sennosides-docusate sodium [Stool Softener-Stimulant Laxat] 8.6-50 mg Tablet 2 tab PO BID PRN PRN (Reason: Constipation) Qty: 0 RF: 0 alprazolam 0.5 MG tablet 0.5 mg PO TID PRN PRN (Reason: Anxiety) 3 Days Qty: 9 RF: 0 hydrocodone-acetaminophen 5-300 mg Tablet 1 tab PO Q8H PRN (Reason: Pain (Scale Score 7-10)) RF: 0 tiotropium bromide 2.5 mcg/actuation mist 2 puff INHALATION DAILY Qty: 4 RF: 3 montelukast 10 mg tablet 10 mg PO QHS Qty: 30 RF: 5 albuterol sulfate 2.5 mg /3 mL (0.083 %) solution for nebulization 2.5 mg INHALATION Q4H PRN (Reason: Sob &/Or Wheezing) Qty: 180 RF: 3 Referrals / Follow Up: Janel Taylor MD [Primary Care Provider] - Within 1 Week Disposition Disposition (needs filled in before D/C Order can be placed): Home, Self Care Charges/Coding Addendum Addendum: Dr. Rosen: I personally reviewed the chart and examined the patient, and agree with the above findings.55-year-old female presents to the hospital with pancreatitis. Unknown etiology as she denies any alcoholism and her triglycerides are only 181. She also has a history of a prior cholecystectomy. Could potentially be medication induced. She feels much better today than when she came in. She was able to tolerate a diet without significant discomfort. I discussed with her the possible plan for discharge today and she expressed understanding of the risk benefits of going home and would like to go home today. I do recommend she follow-up with her PCP in 3 to 5 days and if necessary trial her off of some of her medications that could potentially lead to pancreatitis. She also did have a repeat potassium replaced again today, would recommend outpatient follow-up with a BMP possible mag and Phos. Visit Charges Inpatient E&M: 28524 Disch Hosp
[2020-10-05] MEDS: Mirabegron 25 MG TAB.ER.24H PO (10:13)
[2020-10-05] MEDS: amLODIPine 2.5 MG Tablet PO (10:14)
[2020-10-05] MEDS: Collagenase 30gm Tube 1 APPLIC TOPICAL (10:15)
--- NOTE | 2020-10-05 10:28 | CASEMGMT ---
PAMELA ALVAREZ Assessment: Face to Face with pt for initial transition planning/care coordination assessment. PAMELA ALVAREZ introduced self and role at [facility], pt voices understanding and consents to assessment. Pt is A/O x4 and answers all questions appropriately at this time. Pt lying in bed in no distress. Care providers, pharmacy, and demographics verified/updated. Admitting Dx: acute pancreatitis PCP:Claudia Specialists:Case, min; Prah, onc for low iron Preferred Pharmacy: [facility] for short term medications. Pt uses [facility] for detention. Insurance: [facility] [place] [employer] Prescription Benefit: yes LW/HPOA: Pt has a LW/DPOA on file at [facility]. Her DPOA is her sister Jessica Payan. LNOK: Balbina Tejada, sister, Jessica Payan, sister Living Arrangements: Pt lives alone in an apt with elevator to get to her floor and no steps to enter. Pt states she sponge bathes at home and is I in other ADL's. Pt denies concerns at home. Transportation: Pt states her neighbor transports her to medical appts and she denies concerns with transportation. DME/HHC/SNF: Pt reports she has rollator, knee rover, electric w/c, raised toilet seat, shower seat, handrail in the bathroom and O2 at 3L at HS through [employer]. Pt states she mostly uses her electric w/c and furniture walks. Pt has previously used [facility] and has been in [facility]. Pt states no concerns with going home at time of dc. Pt states no further concerns/needs. CM to follow. Advised pt to ask CM if any further question/concerns/needs arise, voices understanding. Pt Goal: Home Plan: Home
[2020-10-05] MEDS: Potassium Chloride Oral Tablet 20 MEQ PO (10:39)
[2020-10-05] MEDS: Clopidogrel Bisulfate 75 MG Tablet PO (10:40)
[2020-10-05 11:09] VITALS: BP 134/74; PULSE 80; RESP 18; TEMP 37.2; O2SAT 94
--- NOTE | 2020-10-06 12:33 | CASEMGMT ---
PAMELA ALVAREZ Discharge Follow Up Phone Call: LACE: 12 Strata: 3 Call Date: 10/06/20 Discharge Date: 10/05/20 Time of Call:1230 Duration:3 min Admitting Dx:acute pancreatitis PAMELA ALVAREZ completed follow up phone call after recent hospitalization. Pt states she is doing better. She is waiting for [facility] to deliver her new medication, potassium. Pt has a follow up appt with Dr. Taylor on Monday. She denies any questions regarding dc instructions or medications. Pt has no further questions or concerns at this time.
== END 2020-10-05 11:03 | disposition home or self-care (01) | DRG 439 ==
LOC: ED 13:22 → MS3 13:55
PROVIDERS: Nurse Practitioner Family; Admitting Provider Internal Medicine; Emergency Provider Emergency Medicine; PCP Family Medicine; Visit Provider Family Medicine
DX: K85.90 Acute pancreatitis without necrosis or infection, unspecified (principal); Z68.42 Body mass index [BMI] 45.0-49.9, adult; J96.11 Chronic respiratory failure with hypoxia; F31.81 Bipolar II disorder; J43.9 Emphysema, unspecified; I10 Essential (primary) hypertension; E11.9 Type 2 diabetes mellitus without complications; D50.9 Iron deficiency anemia, unspecified; G89.4 Chronic pain syndrome; I25.10 Atherosclerotic heart disease of native coronary artery without angina pectoris; E78.5 Hyperlipidemia, unspecified; E78.00 Pure hypercholesterolemia, unspecified; K21.9 Gastro-esophageal reflux disease without esophagitis; F25.9 Schizoaffective disorder, unspecified; E66.01 Morbid (severe) obesity due to excess calories; F41.9 Anxiety disorder, unspecified; G47.33 Obstructive sleep apnea (adult) (pediatric); F17.210 Nicotine dependence, cigarettes, uncomplicated; Z99.81 Dependence on supplemental oxygen; Z79.01 Long term (current) use of anticoagulants; Z79.891 Long term (current) use of opiate analgesic; Z79.02 Long term (current) use of antithrombotics/antiplatelets; Z79.4 Long term (current) use of insulin; Z79.899 Other long term (current) drug therapy; I25.2 Old myocardial infarction; Z86.711 Personal history of pulmonary embolism; Z87.11 Personal history of peptic ulcer disease; Z98.84 Bariatric surgery status; Z95.5 Presence of coronary angioplasty implant and graft; Z90.49 Acquired absence of other specified parts of digestive tract
CPT/HCPCS: 36415; 71045; 74177; 80048; 80053; 80061; 80076; 81001; 82962; 83690; 84484; 85025; 93005; 94640; 99285; 99406; J7030; Q9967; A4216; J2405

== ENCOUNTER 2020-10-12 13:50 | Emergency (ER) | payer MEDICARE, MEDICAID, SELFPAY ==
[2020-10-03 14:57] VITALS: BMI 41.9
[2020-10-12 13:51] VITALS: BP 143/75; PULSE 96; RESP 18; TEMP 36.8; O2SAT 96; BMI 40.2
--- NOTE | 2020-10-12 14:41 | ED.VIS.GI ---
HPI HPI - GI History of Present Illness Chief Complaint: Abd Pain Informant: patient Abdominal Pain/Flank Pain Onset: Days (3) Context: Gradual Onset Timing: Continuous Quality: Aching Location: Epigastric and LUQ Current Severity: Severe Maximum Severity: Severe Worsened by: Nothing Relieved by: Nothing Nausea/Vomiting/Emesis GI Symptom: Positive for Nausea and Vomiting Onset: Days (3) Quality: Positive for Nonbilious; Negative for Blood streaks and Coffee ground Severity: Moderate Diarrhea/Melena/Hematochezia GI Symptom: Negative for Diarrhea, Melena and Hematochezia Associated Symptoms Associated Symptoms: Negative for Dysuria, Frequency and Hematuria Narrative Narrative: Patient recently admitted to the hospital for pancreatitis of unknown etiology, states she feels like her symptoms are back. 3 days gradual onset symptoms now, since she has been home she really has not been eating, but has been drinking fluids fairly well until the vomiting with this got worse. She had remote cholecystectomy, and states she does not drink any alcohol. [facility] Medical History Anemia Asthma Benign essential hypertension Bleeding tendency Chest pain Chronic cough Chronic narcotic use COPD (chronic obstructive pulmonary disease) Current use of insulin Delayed surgical wound healing Diabetes Emphysema of lung Gastroesophageal reflux disease High cholesterol Hip osteoarthritis History of pulmonary embolism History of stress test Hypertension Irregular heart beat Irritable bowel Morbid obesity with BMI of 45.0-49.9, adult Myocardial infarct On home oxygen therapy RACHEL (obstructive sleep apnea) Pancreatitis Peptic ulcer Schizoaffective disorder Sleep apnea Smoker Spinal stenosis of lumbar region at multiple levels Thyroid nodule Tobacco abuse Ulcer Vitamin D deficiency Home Medications atorvastatin 80 mg PO QHS 08/22/15 [History Last Taken 12/17/19 22:26] nitroglycerin 0.4 mg SL PRN PRN 11/08/16 [History Last Taken 11/01/17 0.4 MG] pregabalin 75 mg PO TID 03/08/18 [History Last Taken 12/18/19 14:40] risperidone 4 mg PO QHS 03/08/18 [History Last Taken 12/17/19 22:27] tizanidine 6 mg PO TID PRN PRN 03/08/18 [History Last Taken 12/18/19 14:37] trazodone 200 mg PO QHS 03/08/18 [History Last Taken 12/17/19 22:26] furosemide 20 mg PO DAILY 11/20/18 [History Last Taken 12/16/19] lisinopril 20 mg PO QHS 11/20/18 [History Last Taken 12/17/19 22:26] mirabegron 25 mg PO DAILY 11/20/18 [History Last Taken 12/18/19 08:47] apixaban 5 mg PO BID 05/02/19 [History Last Taken 12/18/19 10:22] buspirone 30 mg tablet 30 mg PO BID tab 06/27/19 [History Last Taken 12/18/19 08:46] sucralfate 1 gram tablet 1 g PO QACHS 06/27/19 [History Last Taken 12/18/19 16:13] tiotropium bromide 2.5 mcg/actuation mist for inhalation 2 puff INHALATION DAILY #4 g 09/30/19 [Rx Last Taken 12/18/19 13:02] montelukast 10 mg tablet 10 mg PO QHS #30 tab 10/30/19 [Rx Last Taken 12/17/19 22:26] albuterol sulfate 2.5 mg INHALATION Q4H PRN #180 ml 12/11/19 [Rx Last Taken Unknown] acidophilus-pectin, citrus 2 tab PO BID 12/16/19 [History Last Taken 12/18/19 10:25] insulin glargine 40 units SC BID 12/18/19 [History Last Taken 12/18/19 10:25] albuterol sulfate 2 puff IH Q6H PRN PRN inhaler 01/27/20 [Rx Last Taken Unknown] baclofen 10 mg PO TID tab 01/27/20 [Rx Last Taken Unknown] fluticasone propion-salmeterol 2 puff IH Q12 inhaler 01/27/20 [Rx Last Taken Unknown] polyethylene glycol 3350 17 gm PO BID #60 packet 01/27/20 [Rx Last Taken Unknown] dicyclomine 20 mg PO TIDAC #10 cap 03/16/20 [Rx Last Taken Unknown] metoclopramide HCl 10 mg PO 4X/DAY PRN #20 tab 03/16/20 [Rx Last Taken Unknown] clopidogrel 75 mg PO DAILY 07/31/20 [History Last Taken Unknown] alprazolam 0.5 mg PO TID PRN PRN 3 Days #9 tab 08/11/20 [Rx Last Taken Unknown] amlodipine 2.5 mg PO DAILY #0 tab 08/11/20 [Rx Last Taken Unknown] insulin lispro [Humalog KwikPen Insulin] 10 unit SUBCUT TIDAC #0 ml 08/11/20 [Rx Last Taken Unknown] ipratropium-albuterol 3 ml INHALATION Q6H.RT #90 ml 08/11/20 [Rx Last Taken Unknown] menthol-zinc oxide [Calmoseptine] 1 applic TOPICAL TID #0 g 08/11/20 [Rx Last Taken Unknown] metoprolol succinate 75 mg PO DAILY #30 tab 08/11/20 [Rx Last Taken Unknown] sennosides-docusate sodium [Stool Softener-Stimulant Laxat] 2 tab PO BID PRN PRN #0 tab 08/11/20 [Rx Last Taken Unknown] hydrocodone-acetaminophen 1 tab PO Q8H PRN 10/03/20 [History Last Taken Unknown] potassium chloride [K-Tab] 40 meq PO DAILY #60 tab 10/05/20 [Rx Last Taken Unknown] omeprazole 20 mg PO DAILY #14 capsule 10/12/20 [Rx Last Taken Unknown] ondansetron 8 mg PO Q8H PRN PRN #20 tab 10/12/20 [Rx Last Taken Unknown] Allergy/AdvReac Type Severity Reaction Status Date / Time amoxicillin Allergy Itching Verified 10/12/20 14:00 erythromycin base Allergy Unknown Verified 10/12/20 14:00 methadone Allergy Itching Verified 10/12/20 14:00 metolazone Allergy Unknown Verified 10/12/20 14:00 Penicillins Allergy Hives Verified 10/12/20 14:00 Sulfa (Sulfonamide Allergy Hives Verified 10/12/20 14:00 Antibiotics) clarithromycin [From Biaxin] AdvReac Nausea Verified 10/12/20 14:00 ibuprofen AdvReac 3 BLEEDING Verified 10/12/20 14:00 ULCERS morphine AdvReac HEADACHE Verified 10/12/20 14:00 oxycodone [From Percocet] AdvReac Itching Verified 10/12/20 14:00 Family History (Reviewed 10/03/20 @ 15:14 by Meseret Delgado FOREMAN OR SUPERVISOR AND OPERATOR, FOREMAN OR SUPERVISOR AND OPERATOR-C) Mother Heart disease Cancer ovarian Father Hypertension Arthritis Hyperlipemia Grandmother Breast cancer Heart disease Grandfather Heart disease Surgical History H/O cardiac catheterization H/O heart artery stent History of appendectomy history of carpal tunnel release left wrist History of carpal tunnel surgery of left wrist History of cholecystectomy History of gastric bypass History of PTCA History of right ankle surgery history of right hip surgery History of tonsillectomy Social History Smoking Status: Current every day smoker tobacco type: cigarettes Tobacco: How many years used: 39 alcohol intake: never substance use type: does not use caffeine: No what type of physical activity do you participate in: none ROS ROS ED Constitutional Constitutional ED: Denies chills or fever(s) Eyes Eyes: Denies change in vision or diplopia ENT ENT ED: Denies rhinorrhea or sore throat Cardiovascular Cardiovascular: Denies chest pain or palpitations Respiratory/Chest Respiratory/Chest: Denies cough or dyspnea Gastrointestinal Gastrointestinal: Reports as per HPI, abdominal pain, nausea and vomiting; Denies diarrhea Genitourinary Genitourinary ED: Denies dysuria or hematuria Musculoskeletal Musculoskeletal: Reports back pain and other Details: Back pain associated with abdominal pain ; Denies neck pain Integumentary Denies abscess or rash Neurologic Neurologic: Denies headache(s), paresthesias or weakness Psychiatric Psychiatric: Denies anxiety or suicidal thoughts EXAM Physical Exam Const Vital Signs: 10/12/20 13:51 10/12/20 15:00 Temperature 98.3 F Temperature Source Oral Pulse Rate 96 97 Respiratory Rate 18 17 Blood Pressure 143/75 H 140/83 H Blood Pressure Mean 97 102 Pulse Ox 96 98 Oxygen Delivery Method Room Air Room Air Positive well nourished, well developed and obese General Appearance ED: well developed and NAD Nutritional Appearance: obese HEENT Reports moist mucous membranes normocephalic and atraumatic Eyes PERRL and EOMs intact bilaterally Neck full ROM and supple Resp normal respiratory effort and clear to auscultation bilaterally Cardio regular rate, regular rhythm and no murmurs GI non-distended Auscultation: normoactive bowel sounds Palpation: soft and tender epigastric and LUQ; Negative for guarding, pulsatile mass or rebound tenderness present Back/Spine no CVA tenderness General Back: other FROM Extremity normal to inspection General Extremety ED: Negative for edema, pulses abnormal or tenderness General Extremity: Negative for edema or pulses abnormal Neuro oriented x3, CN's II-XII intact bilaterally and no sensory deficits noted Sensorium / Orientation: awake and alert Motor Exam: strength 5/5 throughout Skin no rashes or lesions noted and no wounds MDM MDM MDM Narrative Medical decision making narrative: Patient with mainly left-sided abdominal symptoms, she is a leukocytosis but much lower than when she was recently admitted to the hospital for acute pancreatitis, her lipase was over 2000 now it is normal at 81. Patient feels better after morphine, she was additionally given Zofran and IV fluids, she states this is the same pain and she does not have significant left lower quadrant tenderness so I do not think she needs repeat acute imaging at this time, her recent imaging just showed acute pancreatitis. She is feeling better after morphine and Zofran, she is tolerating po fluids, and is comfortable going home with supportive care and prescription for antiemetic. Lab Data Attestation: I reviewed the patient's lab results. Labs: Laboratory Results - last 24 hr 10/12/20 10/12/20 10/12/20 15:00 15:00 15:50 WBC 14.6 H RBC 5.22 Hgb 14.2 Hct 44.1 MCV 84.5 MCH 27.2 MCHC 32.2 RDW Std Deviation 45.5 H RDW Coeff of Kaycee 14.8 H Plt Count 414 MPV 9.9 Immature Gran % (Auto) 0.800 Neut % (Auto) 83.5 H Lymph % (Auto) 8.3 L [place] % (Auto) 6.7 Eos % (Auto) 0.2 Baso % (Auto) 0.5 Absolute Neuts (auto) 12.2 H Absolute Lymphs (auto) 1.21 Nucleated RBC % 0 Sodium 130 L Potassium 4.0 Chloride 95 L Carbon Dioxide 27.0 Anion Gap 8 BUN 5 L Creatinine 1.10 H Estim Creat Clear Calc 47.80 Est GFR (MDRD) Af Amer 66 Est GFR (MDRD) Non-Af 55 L BUN/Creatinine Ratio 4.5 L Glucose 444 H Calcium 10.1 Total Bilirubin 0.40 AST 12 L ALT 14 Alkaline Phosphatase 226 H Total Protein 7.9 Albumin 2.9 L Globulin 5.0 H Albumin/Globulin Ratio 0.6 L Lipase 81 Urine Color Yellow Urine Clarity Sl. Cloudy Urine pH 6.0 Ur Specific [place] 1.025 Urine Protein 30 H Urine Glucose (UA) 1000 H Urine Ketones 5 H Urine Occult Blood Negative Urine Nitrite Negative Urine Bilirubin Negative Urine Urobilinogen 1 H Ur Leukocyte Esterase 25 H Urine RBC 0 SEEN Urine WBC 0-5 SEEN Ur Squamous Epith Cells 10-25 SEEN Urine Bacteria 0 SEEN Urine Mucus 1+ Discharge Plan Triage Chief Complaint: Abd Pain ED Provider: Rodrigo Delvalle Dx/Rx/DC Orders Clinical Impression: Abdominal pain, left upper quadrant, Acute gastritis without bleeding Instructions: ED Gastritis (Adult) Prescriptions: New omeprazole [omeprazole] 20 MG capsule 20 mg PO DAILY Qty: 14 RF: 0 ondansetron [ondansetron] 4 MG tablet 8 mg PO Q8H PRN PRN (Reason: Nausea) Qty: 20 RF: 0 No Action sucralfate 1 gram tablet 1 g PO QACHS RF: 0 atorvastatin 80 MG tablet 80 mg PO QHS RF: 0 nitroglycerin 0.4 MG tablet, sublingual 0.4 mg SL PRN PRN (Reason: Cardiac/Chest Pain) RF: 0 risperidone 4 mg tablet 4 mg PO QHS RF: 0 trazodone 100 MG tablet 200 mg PO QHS RF: 0 pregabalin 75 MG capsule 75 mg PO TID RF: 0 tizanidine 4 MG tablet 6 mg PO TID PRN PRN (Reason: Spasms) RF: 0 buspirone 30 mg tablet 30 mg PO BID RF: 0 furosemide 20 MG tablet 20 mg PO DAILY RF: 0 mirabegron 25 MG tablet extended release 24 hr 25 mg PO DAILY RF: 0 lisinopril 20 MG tablet 20 mg PO QHS RF: 0 apixaban 5 MG tablet 5 mg PO BID RF: 0 acidophilus-pectin, citrus 1 TABLET tablet 2 tab PO BID RF: 0 insulin glargine 100 UNITS/ML insulin pen 40 units SC BID RF: 0 polyethylene glycol 3350 17 GM packet 17 gm PO BID Qty: 60 RF: 0 baclofen 10 MG tablet 10 mg PO TID RF: 0 albuterol sulfate 1 PUFF inhaler 2 puff IH Q6H PRN PRN (Reason: SOB &/or Wheezing ) RF: 0 fluticasone propion-salmeterol 1 PUFF inhaler 2 puff IH Q12 RF: 0 dicyclomine 10 MG capsule 20 mg PO TIDAC Qty: 10 RF: 0 metoclopramide HCl 10 MG tablet 10 mg PO 4X/DAY PRN (Reason: Headache) Qty: 20 RF: 0 clopidogrel 75 mg tablet 75 mg PO DAILY RF: 0 insulin lispro [Humalog KwikPen Insulin] 100 unit/mL Insulin Pen 10 unit subcut TIDAC Qty: 0 RF: 0 amlodipine 2.5 mg Tablet 2.5 mg PO DAILY Qty: 0 RF: 0 metoprolol succinate 25 mg Tablet Extended Release 24 Hr 75 mg PO DAILY Qty: 30 RF: 0 ipratropium-albuterol 0.5 mg-3 mg(2.5 mg base)/3 mL Solution For Nebulization 3 ml inhalation Q6H.RT Qty: 90 RF: 0 menthol-zinc oxide [Calmoseptine] 0.44-20.6 % Ointment 1 applic topical TID Qty: 0 RF: 0 sennosides-docusate sodium [Stool Softener-Stimulant Laxat] 8.6-50 mg Tablet 2 tab PO BID PRN PRN (Reason: Constipation) Qty: 0 RF: 0 alprazolam 0.5 MG tablet 0.5 mg PO TID PRN PRN (Reason: Anxiety) 3 Days Qty: 9 RF: 0 hydrocodone-acetaminophen 5-300 mg Tablet 1 tab PO Q8H PRN (Reason: Pain (Scale Score 7-10)) RF: 0 potassium chloride [K-Tab] 20 mEq tablet extended release 40 meq PO DAILY Qty: 60 RF: 0 tiotropium bromide 2.5 mcg/actuation mist 2 puff INHALATION DAILY Qty: 4 RF: 3 montelukast 10 mg tablet 10 mg PO QHS Qty: 30 RF: 5 albuterol sulfate 2.5 mg /3 mL (0.083 %) solution for nebulization 2.5 mg INHALATION Q4H PRN (Reason: Sob &/Or Wheezing) Qty: 180 RF: 3 Primary Care Provider: Janel Taylor Referrals: Janel Taylor MD [Primary Care Provider] - 3-5 Days if not improving Disposition Disposition: Home, Self Care
[2020-10-12] MEDS: 0.9% Normal Saline 1,000 ML 1000 ML IV (14:58)
[2020-10-12] MEDS: Morphine 4 MG/ML Syringe 8 MG IV (14:59)
[2020-10-12] MEDS: Ondansetron 4 MG/2 ML Vial IV (14:59)
[2020-10-12 15:00] VITALS: BP 140/83; PULSE 97; RESP 17; O2SAT 98
[2020-10-12 15:07] LABS: Absolute Lymphocyte Count 1.21 X10^3/uL (0.83-4.51); Absolute Neutrophil Count 12.2 X10^3/uL (2.0-7.7); Basophil# 0.08 X10^3/uL; Basophil% 0.5 % (0-1); Eosinophil# 0.03 X10^3/uL; Eosinophils% 0.2 % (0-5); Hematocrit 44.1 % (37-47); Hemoglobin 14.2 g/dL (12.0-15.0); Lymphocyte # 1.21 X10^3/ul (0.83-4.51); Lymphocyte % 8.3 % (19-41); Mean Corp Hgb Conc 32.2 g/dL (32-36); Mean Corpuscular Hgb 27.2 pg (27.0-32.0); Mean Corpuscular Volume 84.5 fL (81-99); Mean Platelet Vol. 9.9 fl (6.2-12.0); Monocyte# 0.97 X10^3/uL; Monocyte% 6.7 % (0-10); NRBC Flagged by Analyzer 0 % (0-5); Neutrophil # 12.15 X10^3/uL (2.7-7.7); Neutrophil % 83.5 % (47-70); Platelet Count 414 K/mm3 (150-450); RBC Distribution Width CV 14.8 % (11.6-14.6); RBC Distribution Width SD 45.5 fl (35.1-43.9); Red Blood Count 5.22 M/mm3 (4.2-5.4); White Blood Count 14.6 K/mm3 (4.4-11.0)
[2020-10-12 15:24] LABS: ALB/GLOB Ratio 0.6 RATIO (0.9-2.4); AST(SGOT) 12 U/L (15-37); Alanine Aminotransfer ALT/SGPT 14 U/L (13-56); Albumin, Serum 2.9 g/dL (3.2-5.0); Alkaline Phosphatase 226 U/L (45-117); Anion Gap 8 (5-15); BUN 5 mg/dL (7-18); BUN/Creat Ratio 4.5 RATIO (10-20); Calcium,Total 10.1 mg/dL (8.5-10.1); Chloride 95 mmol/L (98-107); EST Glomerular Filtration Rate 55 mL/min (>60); Est Glom Filt Rate - Afr Amer 66 mL/min (>60); Glucose 444 mg/dL (74-106); Lipase 81 U/L (73-393); Protein, Total 7.9 g/dL (6.4-8.2); Sodium Level 130 mmol/L (136-145)
[2020-10-12] MEDS: Mag Hydrox/Al Hydrox/Simeth 30 ML UDC PO (15:55)
[2020-10-12 16:04] LABS: Bacteria 0 SEEN /hpf (None Seen); Red Blood Cells-Urine 0 SEEN /hpf (0-5)
[2020-10-12 16:26] LABS: Color, Urine Yellow (Yellow); Glucose, Dipstick 1000 mg/dl (Normal); Ketone-Dipstick 5 mg/dl (Negative); Leukocyte Esterase-Dipstick 25 /ul (Negative); Nitrite-Dipstick Negative (Negative); Occult Blood-Urine Negative /ul (Negative); Protein-Dipstick 30 mg/dl (Negative); Specific Gravity, Urine 1.025 (1.002-1.030); Urine Bilirubin Dipstick Negative (Negative); Urine Clarity Sl. Cloudy (Clear); Urine Urobilinogen 1 mg/dl (Normal)
[2020-10-12 16:36] LABS: Mucous, Urine 1+ /hpf (<or=2+); Squamous Epithelial Cells - UA 10-25 SEEN /hpf (5-10)
[2020-10-12 16:37] LABS: White Blood Cells 0-5 SEEN /hpf (0-5)
[2020-10-12 16:51] VITALS: BP 127/87; PULSE 91; RESP 16
== END 2020-10-12 16:51 | disposition home or self-care (01) ==
PROVIDERS: Emergency Provider Emergency Medicine; PCP Family Medicine
DX: K29.00 Acute gastritis without bleeding (principal); R10.12 Left upper quadrant pain; I10 Essential (primary) hypertension; E11.9 Type 2 diabetes mellitus without complications; J43.9 Emphysema, unspecified; E04.1 Nontoxic single thyroid nodule; E78.00 Pure hypercholesterolemia, unspecified; K58.9 Irritable bowel syndrome, unspecified; K21.9 Gastro-esophageal reflux disease without esophagitis; F25.9 Schizoaffective disorder, unspecified; G47.33 Obstructive sleep apnea (adult) (pediatric); E66.01 Morbid (severe) obesity due to excess calories; Z68.42 Body mass index [BMI] 45.0-49.9, adult; F17.210 Nicotine dependence, cigarettes, uncomplicated; Z99.81 Dependence on supplemental oxygen; Z79.51 Long term (current) use of inhaled steroids; Z79.01 Long term (current) use of anticoagulants; Z79.02 Long term (current) use of antithrombotics/antiplatelets; Z79.4 Long term (current) use of insulin; Z79.891 Long term (current) use of opiate analgesic; Z79.899 Other long term (current) drug therapy; I25.2 Old myocardial infarction; Z87.19 Personal history of other diseases of the digestive system; Z86.711 Personal history of pulmonary embolism
CPT/HCPCS: 51702; 80053; 81001; 83690; 85025; 96361; 96374; 96375; 99285; J7030; A4216; J2405

== ENCOUNTER 2020-10-20 10:15 | Outpatient (RCR) | payer MEDICARE, MEDICAID, SELFPAY ==
[2020-10-03 14:57] VITALS: BMI 41.9
[2020-10-04 00:35] VITALS: BP 98/58; PULSE 117; RESP 16; TEMP 36.9
[2020-10-20 10:30] VITALS: BP 91/65; PULSE 71; TEMP 36.2; BMI 40.2
--- NOTE | 2020-10-20 12:09 | PCM.WC.PN ---
History of Present Illness Date of Service: 10/20/20 Chief Complaint: Right ankle status post ankle fracture with nonhealing incision sites History of Wound: This 55-year-old patient with history of diabetic neuropathy, bipolar, schizoaffective disorder, depression, hypertension, cardiac disease, obesity, excessive tobacco use is status post a fall with right ankle fracture which was fixated 08-[address] Del Angel. Patient has known problems healing. She fractured her left ankle which fixated by Dr. Mitchell and has had issues healing and ever since. It is still not completely healed via CT scan. She continues to smoke and relates that she is down to half a pack per day from 2 packs/day. She presents to the wound care center today for continued wound management of the nonhealing surgical incision sites. Patient relates she is not been able to come to recent appointments as she has been in the hospital for pancreatitis. She relates that she is still not feeling like herself Progress of Wound: Improved Subjective Subjective Patient seen and examined resting comfortably. Patient denies any new pedal complaints. Patient denies any nausea, fever, chills, chest pain, shortness of breath, cough, streaking, purulence, vomiting. She relates that she still feels weak after hospital stay. She is still having pain in her right ankle Objective Data Objective Data Vital Signs: Vital Signs Temp Pulse Resp BP 97.2 F L 71 16 91/65 10/20/20 10:30 10/20/20 10:30 10/04/20 00:35 10/20/20 10:30 Body Mass Index (BMI) 40.2 Physical Exam Narrative Const alert and no apparent distress General Appearance: cooperative and comfortable, obese HEENT Head and Scalp: atraumatic Lymph Lymphatic: no lymphedema noted Resp normal respiratory effort Effort and Inspection: able to speak in complete sentences Extremity normal capillary refill and no calf tenderness General Extremity: edema bilateral lower extremity, no tenderness to palpation of joints or extremities except with maximal dorsiflexion and eversion of right ankle. This is consistent with recent fracture. Other Details: Capillary refill time less than 3 seconds noted to digits ; Negative for clubbing or cyanosis Peripheral Pulses: posterior tibial pulses present bilateral diminished and dorsalis pedis pulses present bilateral diminished Skin General Skin Exam: atrophy and dry skin; Negative for ecchymosis, erythema, pallor or dermatitis Rashes: no rashes Wounds: wounds noted Wound Narrative: ulcers noted to lateral ankle fracture incision sites right ankle. Medial ankle incision site has since healed. No malodor, purulence, probing to bone, streaking, fluctuation, crepitus. There is dehiscence noted to the distal central aspect of the lateral incisions. Skin is atrophic and hairless. Largely granular base. This goes to fascia. Minimal pain to palpation. Neuro Sensory Exam: extremities light-touch: decreased Motor Exam: strength 5/5 throughout Psych Appearance: appropriate Attitude: calm Debridement Note Debridement Note Post-Debridement Measurements and Additional Note: Post-Debridement Measurements/Treatment - Nurse 1 - General Ulcer Assessment Start: 10/20/20 10:24 Freq: Status: Active Protocol: LISY Activity Type Activity Date Activity User E-Sign Co-Sign Detail Recorded Client Recorded Date Recorded By Document 10/20/20 10:30 JACK [id number] 10/20/20 10:31 JACK 10/20/20 10:30 WC - Today's Visit Information Type of service Follow-up Visit (Physician/CATERING ASSOCIATE ) Arrival Mode Wheelchair Patient Identification Verified (Name & Yes ) Height and Weight Body Mass Index (BMI) 40.2 BMI Classification Obese Vital Signs Temperature (97.8 F-99.1 F) 97.2 F L Temperature Source Temporal Pulse Rate (60-100) 71 Pulse Location Monitor Blood Pressure (90/60-120/80) 91/65 Blood Pressure Mean (mm Hg) 73 Source Monitor Position Semi-Fowlers Blood Pressure Location Left Arm History Since Last Visit- (Skip if this is Patient's initial visit) Have you changed medications since your No last visit? Any new allergies or adverse reactions No Had a fall/change in ADL's that may No increase risk of falls Signs or symptoms of abuse and/or No neglect since last visit Have you been in the hospital since your No last visit? Has dressing in place as prescribed Yes Has compression in place as prescribed Yes Has offloadiing in place as prescribed N/A Experienced any changes in pain level or No management Pain Scale: 0-10 Numeric Is Patient Pain Free? Yes WOOD - Nurse 1 - General Ulcer Measurement Start: 10/20/20 10:24 Freq: Status: Active Protocol: Activity Type Activity Date Activity User E-Sign Co-Sign Detail Recorded Client Recorded Date Recorded By Document 10/20/20 10:30 JACK [id number] 10/20/20 10:31 KR 10/20/20 10:30 Wound Center Nurse 1 #9 R MedAnkle -Current Size (cm) - Length 0.3 -Current Size (cm) - Width 0.2 -Current Size (cm) - Depth 0.1 -Total Square Cm 0.06 -Exudate Amt Small -Exudate Type Serosanguineous -Wound Margin Distinct, Outline Attached -Granulation Amt Small (1-33%) -Granulation Quality [place] -Necrosis Amt None Present (0 %) -Texture (Adriane-wound Skin Appearance) Assessed, Scarring -Moisture (Adriane-wound Skin Appearance) No Abnormality, Assessed -Color (Adriane-wound Skin Appearance) No Abnormality, Assessed -Temperature (Adriane-wound Skin No Abnormality Appearance) (Pt Warm) -Ulcer Cleansing Rinsed/ Irrigated with Saline -Foul Odor after Cleansing No -Anesthetic Used 4% Lidocaine Solution #8 R Lat Ankle -Current Size (cm) - Length 2 -Current Size (cm) - Width 0.2 -Current Size (cm) - Depth 0.1 -Total Square Cm 0.4 -Exudate Amt Small -Exudate Type Serosanguineous -Wound Margin Distinct, Outline Attached -Granulation Amt Small (1-33%) -Granulation Quality [place] -Necrosis Amt Small (1-33%) -Necrotic Tissue Type Adherent Slough -Texture (Adriane-wound Skin Appearance) Assessed, Scarring -Moisture (Adriane-wound Skin Appearance) No Abnormality, Assessed -Color (Adriane-wound Skin Appearance) No Abnormality, Assessed -Temperature (Adriane-wound Skin No Abnormality Appearance) (Pt Warm) -Tenderness on Palpation (Adriane-wound No Skin Appearance) -Ulcer Cleansing Rinsed/ Irrigated with Saline -Foul Odor after Cleansing No -Anesthetic Used 4% Lidocaine Solution WC - Nurse 2 - General Ulcer CM Notes Start: 10/20/20 10:24 Freq: Status: Active Protocol: Activity Type Activity Date Activity User E-Sign Co-Sign Detail Recorded Client Recorded Date Recorded By Document 10/20/20 10:47 LACIE [id number] 10/20/20 11:03 LACIE 10/20/20 10:47 Wound Center Nurse 2 #9 R MedAnkle -Time 10:47 -Correct Patient No -Correct Side, Site, Position No -Correct Procedure No -Procedure Performed No -Post Debridement (cm) - Length 0 -Post Debridement (cm) - Width 0 -Post Debridement (cm) - Depth 0 -Total Square (Post) (cm) 0 -Area of Debridement (cm) - Length 0 -Area of Debridement (cm) - Width 0 -Total Square (Area) (cm) 0 -Wound/Ulcer Outcome Healed- Epithelialized -Ulcer Cleansing Rinsed/ Irrigated with Saline -Foul Odor after Cleansing No -Bioengineered Tissue No -Bleeding Controlled with Pressure -Offloading No -Treatment Response Procedure Tolerated Well #8 R Lat Ankle -Time 10:48 -Correct Patient Yes -Correct Side, Site, Position Yes -Correct Procedure Yes -Procedure Performed Yes -Type of Procedure Debridement -Clinical Debridement Subcutaneous -Tissue Removed Subcutaneous -Post Debridement (cm) - Length 0.9 -Post Debridement (cm) - Width 0.3 -Post Debridement (cm) - Depth 0.3 -Total Square (Post) (cm) 0.27 -Area of Debridement (cm) - Length 0.9 -Area of Debridement (cm) - Width 0.3 -Total Square (Area) (cm) 0.27 -Tunneling No -Undermining/Tunneling No -Circular Undermining No -Wound/Ulcer Outcome Not Healed -Ulcer Cleansing Rinsed/ Irrigated with Saline -Foul Odor after Cleansing No -Bioengineered Tissue No -Bleeding Controlled with Pressure -Offloading No -Treatment Response Procedure Tolerated Well -Debridement - Subq, 1st 20sq cm Yes Pain Scale: 0-10 Numeric Is Patient Pain Free? Yes - Nurse 3 - General Ulcer D/C NN Start: 10/20/20 10:24 Freq: Status: Active Protocol: Activity Type Activity Date Activity User E-Sign Co-Sign Detail Recorded Client Recorded Date Recorded By Document 10/20/20 11:07 JACK [id number] 10/20/20 11:08 JACK 10/20/20 11:07 Wound Care Nurse 3 #8 R Lat Ankle -Primary Dressing Applied C Hydrogel ($) -Primary Dressing Covered/Secured with Dry Gauze,Dry Gauze & Roll Gauze,Secured with Tape Pain Scale: 0-10 Numeric Is Patient Pain Free? Yes - Visit Discharge Discharge Condition Stable Ambulatory Status Wheelchair Transportation Private Auto Wound debrided: Lateral ankle Laterality: Right Wound Grade/Stage: Garcia 1 Type of Debridement: Excisional debridement Anesthesia Used: 4% Lidocaine Solution Depth: in the subcutaneous layer Percentage of wound debrided: 100 Instrument Used: 3mm curette Tissue Removed: includes fibrous, devitalized, biofilm, callus and slough tissue Severity: Fat Layer Exposed Amount of bleeding with debridement: Mild Bleeding Controlled with: Pressure Patient tolerated procedure: Patient tolerated procedure well Assessment/Plan Assessment/Plan (1) Skin ulcer of right ankle with fat layer exposed: CODE(S): L97.312 - Non-pressure chronic ulcer of right ankle with fat layer exposed (2) Closed trimalleolar fracture of right ankle: CODE(S): S82.851A - Displaced trimalleolar fracture of right lower leg, initial encounter for closed fracture QUALIFIERS: Encounter type: initial encounter Qualified Code(s): S82.851A - Displaced trimalleolar fracture of right lower leg, initial encounter for closed fracture (3) Delayed surgical wound healing: CODE(S): T81.89XA - Other complications of procedures, not elsewhere classified, initial encounter QUALIFIERS: Encounter type: subsequent encounter Qualified Code(s): T81.89XD - Other complications of procedures, not elsewhere classified, subsequent encounter (4) Type 2 diabetes mellitus: CODE(S): E11.9 - Type 2 diabetes mellitus without complications QUALIFIERS: Diabetes mellitus complication status: with neurologic complications Diabetes mellitus complication detail: with polyneuropathy Diabetes mellitus custodial insulin use: with custodial use Qualified Code(s): E11.42 - Type 2 diabetes mellitus with diabetic polyneuropathy; Z79.4 - assisted (current) use of insulin (5) Morbid obesity: CODE(S): E66.01 - Morbid (severe) obesity due to excess calories (6) History of gastric bypass: CODE(S): Z98.84 - Bariatric surgery status (7) PAD (peripheral artery disease): CODE(S): I73.9 - Peripheral vascular disease, unspecified (8) Tobacco abuse: CODE(S): Z72.0 - Tobacco use PLAN: Patient seen and examined. Patient noted to have missed recent appointments. She relates that she has been in the hospital with pancreatitis and they have been using Santyl to wounds. She relates overall improvement. Patient noted to be wearing cam boot. She relates needing to put weight through right foot when transferring. She relates that this hurts. She is back home. Patient is s/p ORIF for closed right trimalleolar fracture on 08/05/[address] Del Angel, with hospital stay. Patient fractured right ankle from a near syncable episode from standing in her kitchen. Patient noted to have fractured her left ankle with ORIF by Dr Mitchell in November 2019 with bone and skin healing complications. Patient has significant risk factors as far as healing goes these include but are not limited to elevated blood glucose with last Hgb a1c of 8.1% on 08/04/20, history of vitamin D deficiency with level of 28.8 on 12/18/19 and 34.6 on 07/31/20, smoking half ppd down from 2 ppd of cigarettes, history of delayed healing for contralateral ankle fracture both bone and skin, and morbid obesity. Patient is also noted to have a history of PE and is on eliquis and plavix. Discussed with patient normal fracture healing time and discussed this will likely take longer given her history and risk factors. Discussed importance of blood sugar control, losing weight, proper nutrition, vitamin D supplementation, and smoking cessation in optimizing healing potential. Patient noted to still be smoking. Patient is still taking [place] for pain control. This is prescribed by pain management. Patient had vascular studies obtained 01/17/2020 The right digital-brachial index is .94. The left digital-brachial index is .67. Interpretation Summary: Technically limited bilateral extremity resting noninvasive arterial examination. Normal right digital brachial index and normal right posterior tibial and dorsalis pedis triphasic. Dopplerable waveforms at rest. Abnormal left digital brachial index. Inability to access the left posterior tibial. Normal left dorsalis pedis triphasic waveform. Critical ischemia does not appear to be present bilaterally. Patient relates that she is post to follow with Dr. Salgado's office but never did. Patient to reconsider this note she has new wounds. She relates that as wounds are healing she does not wish to set up another doctor's appointment. After verbal consent was obtained p debridement was performed of the ulceration site To continue every other day dressing changes with hydrogel, 4 x 4's, Kerlix. Patient is to remain nonweightbearing to her right lower extremity and to utilize cam boot to protect both the fracture site and the wounds. Patient noted to have follow-up appointment at the office for new x-rays next week. We will readdress weightbearing status at that time. Reviewed concerns and symptoms to watch out for All questions were answered To contact if any questions or concerns To follow-up in 1 weeksin office for wound care and new XR. Will return to [facility] in 3 weeks This note was generated with [employer] dictation software. It may contain incorrect words, spelling, and punctuation that were not noted in checking the note before signing.
== END 2020-11-03 23:59 ==
LOC: WC 10:15
PROVIDERS: PCP Family Medicine; Visit Provider Podiatrist Foot & Ankle Surgery
DX: T81.31XA Disruption of external operation (surgical) wound, not elsewhere classified, initial encounter (principal); L97.312 Non-pressure chronic ulcer of right ankle with fat layer exposed; E11.51 Type 2 diabetes mellitus with diabetic peripheral angiopathy without gangrene; E11.42 Type 2 diabetes mellitus with diabetic polyneuropathy; I10 Essential (primary) hypertension; S82.892G Other fracture of left lower leg, subsequent encounter for closed fracture with delayed healing; W19.XXXD Unspecified fall, subsequent encounter; F25.9 Schizoaffective disorder, unspecified; F31.9 Bipolar disorder, unspecified; F17.210 Nicotine dependence, cigarettes, uncomplicated; E66.01 Morbid (severe) obesity due to excess calories; Z68.41 Body mass index [BMI] 40.0-44.9, adult; Z79.01 Long term (current) use of anticoagulants; Z79.4 Long term (current) use of insulin; Z79.02 Long term (current) use of antithrombotics/antiplatelets; Z79.899 Other long term (current) drug therapy; Z86.711 Personal history of pulmonary embolism; Z98.84 Bariatric surgery status
CPT/HCPCS: 11042

== ENCOUNTER 2020-10-28 11:43 | Emergency (ER) | payer MEDICARE, MEDICAID, SELFPAY ==
[2020-10-28 11:44] VITALS: BP 98/65; PULSE 82; RESP 17; RESP 18; TEMP 36.9; O2SAT 96; O2SAT 97; BMI 40.4
--- NOTE | 2020-10-28 11:56 | EX.ED.DYSGE1 ---
HPI History of Present Illness Chief Complaint: Wound Informant: patient and EMS Narrative Narrative: 55-year-old female presents with a bump on the back of her head. She states that she noticed this today and was very sensitive. She states that she is on Plavix and Eliquis was concerned that she was bleeding. She does not know of any head trauma. No fevers. She notes some nausea. [facility] Medical History Anemia Asthma Benign essential hypertension Bleeding tendency Chest pain Chronic cough Chronic narcotic use COPD (chronic obstructive pulmonary disease) Current use of insulin Delayed surgical wound healing Diabetes Emphysema of lung Gastroesophageal reflux disease High cholesterol Hip osteoarthritis History of pulmonary embolism History of stress test Hypertension Irregular heart beat Irritable bowel Morbid obesity with BMI of 45.0-49.9, adult Myocardial infarct On home oxygen therapy RACHEL (obstructive sleep apnea) Pancreatitis Peptic ulcer Schizoaffective disorder Sleep apnea Smoker Spinal stenosis of lumbar region at multiple levels Thyroid nodule Tobacco abuse Ulcer Vitamin D deficiency Home Medications atorvastatin 80 mg PO QHS 08/22/15 [History Last Taken 12/17/19 22:26] nitroglycerin 0.4 mg SL PRN PRN 11/08/16 [History Last Taken 11/01/17 0.4 MG] pregabalin 75 mg PO TID 03/08/18 [History Last Taken 12/18/19 14:40] risperidone 4 mg PO QHS 03/08/18 [History Last Taken 12/17/19 22:27] tizanidine 6 mg PO TID PRN PRN 03/08/18 [History Last Taken 12/18/19 14:37] trazodone 200 mg PO QHS 03/08/18 [History Last Taken 12/17/19 22:26] furosemide 20 mg PO DAILY 11/20/18 [History Last Taken 12/16/19] lisinopril 20 mg PO QHS 11/20/18 [History Last Taken 12/17/19 22:26] mirabegron 25 mg PO DAILY 11/20/18 [History Last Taken 12/18/19 08:47] apixaban 5 mg PO BID 05/02/19 [History Last Taken 12/18/19 10:22] buspirone 30 mg tablet 30 mg PO BID tab 04/23/20 [History Last Taken 12/18/19 08:46] sucralfate 1 gram tablet 1 g PO QACHS 06/27/19 [History Last Taken 12/18/19 16:13] tiotropium bromide 2.5 mcg/actuation mist for inhalation 2 puff INHALATION DAILY #4 g 09/30/19 [Rx Last Taken 12/18/19 13:02] montelukast 10 mg tablet 10 mg PO QHS #30 tab 10/30/19 [Rx Last Taken 12/17/19 22:26] albuterol sulfate 2.5 mg INHALATION Q4H PRN #180 ml 12/11/19 [Rx Last Taken Unknown] acidophilus-pectin, citrus 2 tab PO BID 12/16/19 [History Last Taken 12/18/19 10:25] insulin glargine 40 units SC BID 12/18/19 [History Last Taken 12/18/19 10:25] albuterol sulfate 2 puff IH Q6H PRN PRN inhaler 01/27/20 [Rx Last Taken Unknown] baclofen 10 mg PO TID tab 01/27/20 [Rx Last Taken Unknown] fluticasone propion-salmeterol 2 puff IH Q12 inhaler 01/27/20 [Rx Last Taken Unknown] polyethylene glycol 3350 17 gm PO BID #60 packet 01/27/20 [Rx Last Taken Unknown] dicyclomine 20 mg PO TIDAC #10 cap 03/16/20 [Rx Last Taken Unknown] metoclopramide HCl 10 mg PO 4X/DAY PRN #20 tab 03/16/20 [Rx Last Taken Unknown] clopidogrel 75 mg PO DAILY 07/31/20 [History Last Taken Unknown] alprazolam 0.5 mg PO TID PRN PRN 3 Days #9 tab 08/11/20 [Rx Last Taken Unknown] amlodipine 2.5 mg PO DAILY #0 tab 08/11/20 [Rx Last Taken Unknown] insulin lispro [Humalog KwikPen Insulin] 10 unit SUBCUT TIDAC #0 ml 08/11/20 [Rx Last Taken Unknown] ipratropium-albuterol 3 ml INHALATION Q6H.RT #90 ml 08/11/20 [Rx Last Taken Unknown] menthol-zinc oxide [Calmoseptine] 1 applic TOPICAL TID #0 g 08/11/20 [Rx Last Taken Unknown] metoprolol succinate 75 mg PO DAILY #30 tab 08/11/20 [Rx Last Taken Unknown] sennosides-docusate sodium [Stool Softener-Stimulant Laxat] 2 tab PO BID PRN PRN #0 tab 08/11/20 [Rx Last Taken Unknown] hydrocodone-acetaminophen 1 tab PO Q8H PRN 10/03/20 [History Last Taken Unknown] potassium chloride [K-Tab] 40 meq PO DAILY #60 tab 10/05/20 [Rx Last Taken Unknown] omeprazole 20 mg PO DAILY #14 capsule 10/12/20 [Rx Last Taken Unknown] ondansetron 8 mg PO Q8H PRN PRN #20 tab 10/12/20 [Rx Last Taken Unknown] cephalexin 500 mg PO Q6 #28 capsule 10/28/20 [Rx Last Taken Unknown] Allergy/AdvReac Type Severity Reaction Status Date / Time amoxicillin Allergy Itching Verified 10/28/20 11:44 erythromycin base Allergy Unknown Verified 10/28/20 11:44 methadone Allergy Itching Verified 10/28/20 11:44 metolazone Allergy Unknown Verified 10/28/20 11:44 Penicillins Allergy Hives Verified 10/28/20 11:44 Sulfa (Sulfonamide Allergy Hives Verified 10/28/20 11:44 Antibiotics) clarithromycin [From Biaxin] AdvReac Nausea Verified 10/28/20 11:44 ibuprofen AdvReac 3 BLEEDING Verified 10/28/20 11:44 ULCERS morphine AdvReac HEADACHE Verified 10/28/20 11:44 oxycodone [From Percocet] AdvReac Itching Verified 10/28/20 11:44 Family History Mother Heart disease Cancer ovarian Father Hypertension Arthritis Hyperlipemia Grandmother Breast cancer Heart disease Grandfather Heart disease Surgical History H/O cardiac catheterization H/O heart artery stent History of appendectomy history of carpal tunnel release left wrist History of carpal tunnel surgery of left wrist History of cholecystectomy History of gastric bypass History of PTCA History of right ankle surgery history of right hip surgery History of tonsillectomy Social History Smoking Status: Current every day smoker tobacco type: cigarettes Tobacco: How many years used: 39 alcohol intake: never substance use type: does not use caffeine: No what type of physical activity do you participate in: none ROS ROS ED Constitutional Constitutional ED: Denies chills or weight loss Eyes Eyes: Denies change in vision or diplopia ENT ENT ED: Denies ear pain, rhinorrhea or sore throat Cardiovascular Cardiovascular: Denies chest pain, orthopnea, palpitations or racing heartbeat Respiratory/Chest Respiratory/Chest: Denies cough, dyspnea or orthopnea Gastrointestinal Gastrointestinal: Denies abdominal pain, diarrhea, nausea or vomiting Genitourinary Genitourinary ED: Denies dysuria, hematuria or urinary frequency Musculoskeletal Musculoskeletal: Denies arthralgias or myalgias Integumentary Reports other Details: See HPI ; Denies abscess or rash Neurologic Neurologic: Denies headache(s) or weakness Psychiatric Psychiatric: Denies anxiety, depression, suicidal ideation or suicidal thoughts Endocrine Endocrinology: Denies polydipsia, polyphagia or polyuria Allergic/Immunologic Allergic/Immunologic ED: Denies mouth swelling, tongue swelling or urticaria EXAM Physical Exam Const Vital Signs: 10/28/20 11:44 Temperature 98.5 F Temperature Source Oral Pulse Rate 82 Respiratory Rate 18 Blood Pressure 98/65 Blood Pressure Mean 76 Pulse Ox 97 Oxygen Delivery Method Room Air Positive well nourished, well developed and obese General Appearance ED: well developed Nutritional Appearance: obese HEENT Reports normocephalic, head/scalp atraumatic and moist mucous membranes HEENT Narrative: There the occipital vertex of the scalp is a slightly swollen area that is erythematous about the size of a quarter. Patient states it is very tender. tenderness Eyes PERRL and EOMs intact bilaterally Neck no lymphadenopathy, supple and no JVD Resp normal respiratory effort and clear to auscultation bilaterally Cardio regular rate, regular rhythm and no murmurs GI normal to inspection, nondistended, normoactive bowel sounds and non-tender Palpation: soft Back/Spine no CVA tenderness and normal ROM Extremity normal to inspection General Extremety ED: Negative for edema General Extremity: Negative for edema Neuro oriented x3 and CN's II-XII intact bilaterally Sensorium / Orientation: alert Motor Exam: strength 5/5 throughout Psych mental status grossly normal Mood & Affect: Negative for depressed or tearful Skin no rashes or lesions noted and no wounds MDM MDM MDM Narrative Medical decision making narrative: This does not palpate like a sebaceous cyst or a lymph node. I do not think that this is a hematoma. I will place her on Keflex. I suggest warm compresses. She may need to return for I&D if this progresses. Discharge Plan Triage Chief Complaint: Wound ED Provider: Aaron Green Dx/Rx/DC Orders Clinical Impression: Cellulitis of scalp Instructions: ED Cellulitis Prescriptions: New cephalexin [cephalexin] 500 MG capsule 500 mg PO Q6 Qty: 28 RF: 0 No Action sucralfate 1 gram tablet 1 g PO QACHS RF: 0 atorvastatin 80 MG tablet 80 mg PO QHS RF: 0 nitroglycerin 0.4 MG tablet, sublingual 0.4 mg SL PRN PRN (Reason: Cardiac/Chest Pain) RF: 0 risperidone 4 mg tablet 4 mg PO QHS RF: 0 trazodone 100 MG tablet 200 mg PO QHS RF: 0 pregabalin 75 MG capsule 75 mg PO TID RF: 0 tizanidine 4 MG tablet 6 mg PO TID PRN PRN (Reason: Spasms) RF: 0 buspirone 30 mg tablet 30 mg PO BID RF: 0 furosemide 20 MG tablet 20 mg PO DAILY RF: 0 mirabegron 25 MG tablet extended release 24 hr 25 mg PO DAILY RF: 0 lisinopril 20 MG tablet 20 mg PO QHS RF: 0 apixaban 5 MG tablet 5 mg PO BID RF: 0 acidophilus-pectin, citrus 1 TABLET tablet 2 tab PO BID RF: 0 insulin glargine 100 UNITS/ML insulin pen 40 units SC BID RF: 0 polyethylene glycol 3350 17 GM packet 17 gm PO BID Qty: 60 RF: 0 baclofen 10 MG tablet 10 mg PO TID RF: 0 albuterol sulfate 1 PUFF inhaler 2 puff IH Q6H PRN PRN (Reason: SOB &/or Wheezing ) RF: 0 fluticasone propion-salmeterol 1 PUFF inhaler 2 puff IH Q12 RF: 0 dicyclomine 10 MG capsule 20 mg PO TIDAC Qty: 10 RF: 0 metoclopramide HCl 10 MG tablet 10 mg PO 4X/DAY PRN (Reason: Headache) Qty: 20 RF: 0 clopidogrel 75 mg tablet 75 mg PO DAILY RF: 0 insulin lispro [Humalog KwikPen Insulin] 100 unit/mL Insulin Pen 10 unit subcut TIDAC Qty: 0 RF: 0 amlodipine 2.5 mg Tablet 2.5 mg PO DAILY Qty: 0 RF: 0 metoprolol succinate 25 mg Tablet Extended Release 24 Hr 75 mg PO DAILY Qty: 30 RF: 0 ipratropium-albuterol 0.5 mg-3 mg(2.5 mg base)/3 mL Solution For Nebulization 3 ml inhalation Q6H.RT Qty: 90 RF: 0 menthol-zinc oxide [Calmoseptine] 0.44-20.6 % Ointment 1 applic topical TID Qty: 0 RF: 0 sennosides-docusate sodium [Stool Softener-Stimulant Laxat] 8.6-50 mg Tablet 2 tab PO BID PRN PRN (Reason: Constipation) Qty: 0 RF: 0 alprazolam 0.5 MG tablet 0.5 mg PO TID PRN PRN (Reason: Anxiety) 3 Days Qty: 9 RF: 0 hydrocodone-acetaminophen 5-300 mg Tablet 1 tab PO Q8H PRN (Reason: Pain (Scale Score 7-10)) RF: 0 potassium chloride [K-Tab] 20 mEq tablet extended release 40 meq PO DAILY Qty: 60 RF: 0 omeprazole [omeprazole] 20 MG capsule 20 mg PO DAILY Qty: 14 RF: 0 ondansetron [ondansetron] 4 MG tablet 8 mg PO Q8H PRN PRN (Reason: Nausea) Qty: 20 RF: 0 tiotropium bromide 2.5 mcg/actuation mist 2 puff INHALATION DAILY Qty: 4 RF: 3 montelukast 10 mg tablet 10 mg PO QHS Qty: 30 RF: 5 albuterol sulfate 2.5 mg /3 mL (0.083 %) solution for nebulization 2.5 mg INHALATION Q4H PRN (Reason: Sob &/Or Wheezing) Qty: 180 RF: 3 Primary Care Provider: Janel Taylor Referrals: Janel Taylor MD [Primary Care Provider] - 1 Week if not improving Disposition Disposition: Home, Self Care
[2020-10-28] MEDS: Cephalexin 250 MG Capsule 500 MG PO (12:45)
[2020-10-28 13:35] VITALS: PULSE 99; RESP 18; O2SAT 97
--- NOTE | 2020-10-28 13:36 | ED.RN ---
THIS NURSE REVIEWED D/C INSTRUCTIONS WITH PT. PT VERBALIZED UNDERSTANDING OF INSTRUCTIONS. PT REQUESTING A DIFFERENT PAIN MEDICATION BECAUSE SHE ALREADY TAKES NORCO AT HOME. PER DR STEELE, THE PT WILL NOT RECEIVE STRONGER PAIN MEDICATIONS. SAME INFORMATION GIVEN TO THE PT. PT INFORMED TO TAKE THE ANTIBIOTICS TO HELP WITH THE PAIN AND DECREASE THE INFECTION. PT VERBALIZED UNDERSTANDING OF THIS INFORMATION. PT DENIES FURTHER NEEDS OR QUESTIONS AT THIS TIME. PT ASSISTED TO THE WAITING AREA VIA W/C TO WAIT FOR HER RIDE
== END 2020-10-28 13:39 | disposition home or self-care (01) ==
LOC: ED 12:25
PROVIDERS: Emergency Provider Emergency Medicine; PCP Family Medicine
DX: L03.811 Cellulitis of head [any part, except face] (principal); J44.9 Chronic obstructive pulmonary disease, unspecified; I10 Essential (primary) hypertension; E11.9 Type 2 diabetes mellitus without complications; E04.1 Nontoxic single thyroid nodule; E78.00 Pure hypercholesterolemia, unspecified; K58.9 Irritable bowel syndrome, unspecified; F25.9 Schizoaffective disorder, unspecified; G47.33 Obstructive sleep apnea (adult) (pediatric); E55.9 Vitamin D deficiency, unspecified; K21.9 Gastro-esophageal reflux disease without esophagitis; F17.210 Nicotine dependence, cigarettes, uncomplicated; E66.01 Morbid (severe) obesity due to excess calories; Z68.42 Body mass index [BMI] 45.0-49.9, adult; Z79.01 Long term (current) use of anticoagulants; Z79.02 Long term (current) use of antithrombotics/antiplatelets; Z79.891 Long term (current) use of opiate analgesic; Z79.4 Long term (current) use of insulin; Z79.51 Long term (current) use of inhaled steroids; Z99.81 Dependence on supplemental oxygen; I25.2 Old myocardial infarction; Z86.711 Personal history of pulmonary embolism; Z98.84 Bariatric surgery status; Z98.61 Coronary angioplasty status
CPT/HCPCS: 99284

== ENCOUNTER → 2020-11-06 | Outpatient (CLI) | payer MEDICARE, MEDICAID, SELFPAY | END | disposition home or self-care (01) | PROVIDERS: PCP Family Medicine; Referring Provider Family Medicine; Visit Provider Family Medicine | DX: Z20.828 Contact with and (suspected) exposure to other viral communicable diseases (principal) | CPT/HCPCS: 87635; U0005; U0003 ==

== ENCOUNTER 2020-11-14 12:43 | Emergency (ER) | payer MEDICARE, MEDICAID, SELFPAY ==
[2020-11-14 12:44] VITALS: BP 134/67; PULSE 55; RESP 17; O2SAT 97
[2020-11-14 12:45] VITALS: BP 134/67; PULSE 54; RESP 15; TEMP 36.4; O2SAT 99; BMI 40.5
--- NOTE | 2020-11-14 12:56 | EKG12_ITS ---
Test Reason : PALPS Blood Pressure : / mmHG Vent. Rate : 054 BPM Atrial Rate : 054 BPM P-R Int : 164 ms QRS Dur : 090 ms QT Int : 432 ms P-R-T Axes : 032 011 013 degrees QTc Int : 409 ms Sinus bradycardia Otherwise normal ECG Confirmed by MARYAM TAFOYA, JAZZMINE ([id number]), mapping editor MARTHA SCOTT ([id number]) on 11/16/2020 1:31:08 PM Referred By: FIDELINA Confirmed By:JAZZMINE FRANCISCO MD
--- NOTE | 2020-11-14 12:57 | EDS_ITS ---
HPI History of Present Illness Chief Complaint: Palpitations Narrative Narrative: Patient presents with shortness of breath for the past 2 weeks, she has a sore throat and upper airway congestion. She had a negative Covid test last week, she has been immunized. She has no myalgias. She has a history of COPD and asthma and this feels similar she has not had no treatment for this. [facility] Medical History Anemia Asthma Benign essential hypertension Bleeding tendency Chest pain Chronic cough Chronic narcotic use COPD (chronic obstructive pulmonary disease) Current use of insulin Delayed surgical wound healing Diabetes Emphysema of lung Gastroesophageal reflux disease High cholesterol Hip osteoarthritis History of pulmonary embolism History of stress test Hypertension Irregular heart beat Irritable bowel Morbid obesity with BMI of 45.0-49.9, adult Myocardial infarct On home oxygen therapy RACHEL (obstructive sleep apnea) Pancreatitis Peptic ulcer Schizoaffective disorder Sleep apnea Smoker Spinal stenosis of lumbar region at multiple levels Thyroid nodule Tobacco abuse Ulcer Vitamin D deficiency Home Medications atorvastatin 80 mg PO QHS 08/22/15 [History Last Taken 12/17/19 22:26] nitroglycerin 0.4 mg SL PRN PRN 11/08/16 [History Last Taken 11/01/17 0.4 MG] pregabalin 75 mg PO TID 03/08/18 [History Last Taken 12/18/19 14:40] risperidone 4 mg PO QHS 03/08/18 [History Last Taken 12/17/19 22:27] tizanidine 6 mg PO TID PRN PRN 03/08/18 [History Last Taken 12/18/19 14:37] trazodone 200 mg PO QHS 03/08/18 [History Last Taken 12/17/19 22:26] furosemide 20 mg PO DAILY 11/20/18 [History Last Taken 12/16/19] lisinopril 20 mg PO QHS 11/20/18 [History Last Taken 12/17/19 22:26] mirabegron 25 mg PO DAILY 11/20/18 [History Last Taken 12/18/19 08:47] apixaban 5 mg PO BID 05/02/19 [History Last Taken 12/18/19 10:22] buspirone 30 mg tablet 30 mg PO BID tab 06/27/19 [History Last Taken 12/18/19 08:46] sucralfate 1 gram tablet 1 g PO QACHS 06/27/19 [History Last Taken 12/18/19 16:13] tiotropium bromide 2.5 mcg/actuation mist for inhalation 2 puff INHALATION DAILY #4 g 09/30/19 [Rx Last Taken 12/18/19 13:02] montelukast 10 mg tablet 10 mg PO QHS #30 tab 10/30/19 [Rx Last Taken 12/17/19 22:26] acidophilus-pectin, citrus 2 tab PO BID 12/16/19 [History Last Taken 12/18/19 10:25] insulin glargine 40 units SC BID 12/18/19 [History Last Taken 12/18/19 10:25] dicyclomine 20 mg PO TIDAC #10 cap 03/16/20 [Rx Last Taken Unknown] metoclopramide HCl 10 mg PO 4X/DAY PRN #20 tab 03/16/20 [Rx Last Taken Unknown] clopidogrel 75 mg PO DAILY 07/31/20 [History Last Taken Unknown] insulin lispro [Humalog KwikPen Insulin] 10 unit SUBCUT TIDAC #0 ml 08/11/20 [Rx Last Taken Unknown] sennosides-docusate sodium [Stool Softener-Stimulant Laxat] 2 tab PO BID PRN PRN #0 tab 08/11/20 [Rx Last Taken Unknown] hydrocodone-acetaminophen 1 tab PO Q6H PRN PRN 10/03/20 [History Last Taken Unknown] potassium chloride [K-Tab] 40 meq PO DAILY #60 tab 10/05/20 [Rx Last Taken Unknown] albuterol sulfate 2 puff IH Q4H PRN PRN 11/14/20 [History Last Taken Unknown] amlodipine 10 mg PO DAILY 11/14/20 [History Last Taken Unknown] escitalopram oxalate 20 mg PO DAILY 11/14/20 [History Last Taken Unknown] fluticasone propion-salmeterol [Advair HFA] 2 puff INHALATION BID 11/14/20 [History Last Taken Unknown] fluticasone propionate [Flonase] 1 spray INTRANASAL BID 11/14/20 [History Last Taken Unknown] lamotrigine 25 mg PO DAILY 11/14/20 [History Last Taken Unknown] loperamide [Imodium A-D] 2 mg PO Q6H PRN 11/14/20 [History Last Taken Unknown] metoprolol succinate 50 mg PO DAILY 11/14/20 [History Last Taken Unknown] pantoprazole 40 mg PO BID 11/14/20 [History Last Taken Unknown] prednisone 40 mg PO DAILY #8 tab 11/14/20 [Rx Last Taken Unknown] promethazine 25 mg PO BID PRN PRN 11/14/20 [History Last Taken Unknown] Allergy/AdvReac Type Severity Reaction Status Date / Time amoxicillin Allergy Itching Verified 11/14/20 12:45 erythromycin base Allergy Unknown Verified 11/14/20 12:45 methadone Allergy Itching Verified 11/14/20 12:45 metolazone Allergy Unknown Verified 11/14/20 12:45 Penicillins Allergy Hives Verified 11/14/20 12:45 Sulfa (Sulfonamide Allergy Hives Verified 11/14/20 12:45 Antibiotics) clarithromycin [From Biaxin] AdvReac Nausea Verified 11/14/20 12:45 ibuprofen AdvReac 3 BLEEDING Verified 11/14/20 12:45 ULCERS morphine AdvReac HEADACHE Verified 11/14/20 12:45 oxycodone [From Percocet] AdvReac Itching Verified 11/14/20 12:45 Family History Mother Heart disease Cancer ovarian Father Hypertension Arthritis Hyperlipemia Grandmother Breast cancer Heart disease Grandfather Heart disease Surgical History H/O cardiac catheterization H/O heart artery stent History of appendectomy history of carpal tunnel release left wrist History of carpal tunnel surgery of left wrist History of cholecystectomy History of gastric bypass History of PTCA History of right ankle surgery history of right hip surgery History of tonsillectomy Social History Smoking Status: Current every day smoker tobacco type: cigarettes Tobacco: How many years used: 39 alcohol intake: never substance use type: does not use caffeine: No what type of physical activity do you participate in: none ROS ROS ED ROS Narrative Past medical history: Reviewed, significant for schizophrenia, hypercholesterolemia, diabetes, hypertension, osteoarthritis, pulmonary hypertension Medications: Reviewed Social history: Lives alone, smoker Review of systems: All systems negative except as indicated General: She had fever 5 days ago which has subsided. Eyes: No visual changes ENT: Sore throat and upper airway congestion. Neck: No neck pain Cardiovascular: No chest pain Respiratory: Shortness of breath as in HPI Gastrointestinal: No abdominal pain, nausea vomiting or diarrhea Genitourinary: No dysuria Musculoskeletal: Denies myalgias no difficulty with ambulation Skin: No rash Neurological: No memory loss, confusion or any focal weakness Psych: No recent behavioral changes Hematologic: No easy bleeding or easy bruising EXAM Physical Exam Narrative Exam Narrative: Physical exam General: Patient appears chronically ill, she does not appear in any acute distress. Head: Normocephalic, Atraumatic Eyes: Conjunctiva not pale ENT: Moist mucous membranes, she does have some rhinorrhea. There is some postnasal drip but no pharyngeal erythema or exudates. Normal voice. Normal soft palate. Neck: Supple, Nontender, No lymphadenopathy Cardiovascular: Regular rate, Regular rhythm Respiratory: Bilateral end expiratory wheezing, she is speaking in full sentences she does not appear in significant distress. Abdomen: Soft, Nontender, Nondistended Back: Nontender, Normal Inspection. Negative for: CVA tenderness Extremities: Nontender, No edema Skin: Normal color, No rash Neurological: Alert, Normal Strength, Normal Sensation Psychological: Somewhat odd affect Const Vital Signs: 11/14/20 12:44 11/14/20 12:45 11/14/20 12:51 Temperature 97.5 F L Temperature Source Temporal Pulse Rate 55 L 54 L Respiratory Rate 17 15 Respiratory Effort Normal Respiratory Pattern Blood Pressure 134/67 H 134/67 H Blood Pressure Mean 89 89 Pulse Ox 97 99 Oxygen Delivery Method Room Air Room Air 11/14/20 12:59 11/14/20 13:06 11/14/20 14:51 Temperature 97.5 F L Temperature Source Temporal Pulse Rate 52 L 61 52 L Respiratory Rate 19 H 22 H 16 Respiratory Effort Respiratory Pattern Tachypnea Blood Pressure 134/67 H 133/91 H Blood Pressure Mean 89 105 Pulse Ox 99 98 Oxygen Delivery Method Room Air Room Air MDM MDM MDM Narrative Medical decision making narrative: Patient has a history of COPD. She has an acute COPD exacerbation. I will treat as such. She has been tested a few times for Covid and it has been negative. She is saturating well, she appears well. I did encourage her to stop smoking. Patient will be discharged. Lab Data Labs: Laboratory Results - last 24 hr 11/14/20 11/14/20 11/14/20 12:45 12:45 12:45 WBC 14.4 H RBC 5.52 H Hgb 14.8 Hct 46.4 MCV 84.1 MCH 26.8 L MCHC 31.9 L RDW Std Deviation 46.1 H RDW Coeff of [place] 15.1 H Plt Count 309 MPV 10.1 Immature Gran % (Auto) 0.500 Neut % (Auto) 76.2 H Lymph % (Auto) 13.9 L [place] % (Auto) 6.0 Eos % (Auto) 2.4 Baso % (Auto) 1.0 Absolute Neuts (auto) 10.9 H Absolute Lymphs (auto) 1.99 Nucleated RBC % 0 Sodium 128 L Potassium 4.4 Chloride 100 Carbon Dioxide 22.0 Anion Gap 6 BUN 11 Creatinine 0.91 Estim Creat Clear Calc 57.78 Est GFR (MDRD) Af Amer 83 Est GFR (MDRD) Non-Af 69 BUN/Creatinine Ratio 12.1 Glucose 449 H Calcium 9.5 Total Bilirubin 0.40 AST 13 L ALT 23 Alkaline Phosphatase 223 H Troponin I High Sens 5 B-Natriuretic Peptide 82.2 Total Protein 7.3 Albumin 3.2 Globulin 4.1 Albumin/Globulin Ratio 0.8 L Radiography Diagnostic Testing: Radiology Impression Chest X-Ray 11/14/20 13:51 IMPRESSION: No acute cardiopulmonary processes. Electronically Signed: Jackie Rodríguez MD at 14:34 EDT Tel , Service support , Discharge Plan Triage Chief Complaint: Palpitations Other Complaint: Chest Pain ED Provider: Tom Nails Dx/Rx/DC Orders Clinical Impression: COPD (chronic obstructive pulmonary disease) Instructions: Chronic Lung Disease ... Prescriptions: New prednisone 20 mg tablet 40 mg PO DAILY Qty: 8 RF: 0 No Action sucralfate 1 gram tablet 1 g PO QACHS RF: 0 atorvastatin 80 MG tablet 80 mg PO QHS RF: 0 nitroglycerin 0.4 MG tablet, sublingual 0.4 mg SL PRN PRN (Reason: Cardiac/Chest Pain) RF: 0 risperidone 4 mg tablet 4 mg PO QHS RF: 0 trazodone 100 MG tablet 200 mg PO QHS RF: 0 pregabalin 75 MG capsule 75 mg PO TID RF: 0 tizanidine 4 MG tablet 6 mg PO TID PRN PRN (Reason: Spasms) RF: 0 buspirone 30 mg tablet 30 mg PO BID RF: 0 furosemide 20 MG tablet 20 mg PO DAILY RF: 0 mirabegron 25 MG tablet extended release 24 hr 25 mg PO DAILY RF: 0 lisinopril 20 MG tablet 20 mg PO QHS RF: 0 apixaban 5 MG tablet 5 mg PO BID RF: 0 acidophilus-pectin, citrus 1 TABLET tablet 2 tab PO BID RF: 0 insulin glargine 100 UNITS/ML insulin pen 40 units SC BID RF: 0 dicyclomine 10 MG capsule 20 mg PO TIDAC Qty: 10 RF: 0 metoclopramide HCl 10 MG tablet 10 mg PO 4X/DAY PRN (Reason: Headache) Qty: 20 RF: 0 clopidogrel 75 mg tablet 75 mg PO DAILY RF: 0 insulin lispro [Humalog KwikPen Insulin] 100 unit/mL Insulin Pen 10 unit subcut TIDAC Qty: 0 RF: 0 sennosides-docusate sodium [Stool Softener-Stimulant Laxat] 8.6-50 mg Tablet 2 tab PO BID PRN PRN (Reason: Constipation) Qty: 0 RF: 0 hydrocodone-acetaminophen 5-300 mg Tablet 1 tab PO Q6H PRN PRN (Reason: Pain) RF: 0 potassium chloride [K-Tab] 20 mEq tablet extended release 40 meq PO DAILY Qty: 60 RF: 0 lamotrigine 25 mg Tablet 25 mg PO DAILY RF: 0 promethazine 25 mg Tablet 25 mg PO BID PRN PRN (Reason: Nausea) RF: 0 escitalopram oxalate 20 mg Tablet 20 mg PO DAILY RF: 0 Advair HFA 230-21 mcg/actuation Hfa Aerosol Inhaler 2 puff INHALATION BID RF: 0 albuterol sulfate 1 PUFF HFA aerosol inhaler 2 puff IH Q4H PRN PRN (Reason: SOB &/or Wheezing ) RF: 0 loperamide [Imodium A-D] 2 mg Capsule 2 mg PO Q6H PRN (Reason: Diarrhea) RF: 0 pantoprazole 40 mg Tablet,Delayed Release (Dr/Ec) 40 mg PO BID RF: 0 fluticasone propionate [Flonase] 50 mcg/actuation [place],Suspension 1 spray INTRANASAL BID RF: 0 amlodipine 2.5 mg tablet 10 mg PO DAILY RF: 0 metoprolol succinate 25 mg tablet extended release 24 hr 50 mg PO DAILY RF: 0 tiotropium bromide 2.5 mcg/actuation mist 2 puff INHALATION DAILY Qty: 4 RF: 3 montelukast 10 mg tablet 10 mg PO QHS Qty: 30 RF: 5 Primary Care Provider: Janel Taylor Referrals: Janel Taylor MD [Primary Care Provider] - 2 Days Disposition Disposition: Home, Self Care
[2020-11-14 12:59] VITALS: BP 134/67; PULSE 52; RESP 19; TEMP 36.4; O2SAT 99
[2020-11-14 13:05] LABS: Absolute Lymphocyte Count 1.99 X10^3/uL (0.83-4.51); Absolute Neutrophil Count 10.9 X10^3/uL (2.0-7.7); Basophil# 0.15 X10^3/uL; Eosinophil# 0.34 X10^3/uL; Eosinophils% 2.4 % (0-5); Hematocrit 46.4 % (37-47); Hemoglobin 14.8 g/dL (12.0-15.0); Lymphocyte # 1.99 X10^3/ul (0.83-4.51); Lymphocyte % 13.9 % (19-41); Mean Corp Hgb Conc 31.9 g/dL (32-36); Mean Corpuscular Hgb 26.8 pg (27.0-32.0); Mean Corpuscular Volume 84.1 fL (81-99); Mean Platelet Vol. 10.1 fl (6.2-12.0); Monocyte# 0.86 X10^3/uL; NRBC Flagged by Analyzer 0 % (0-5); Neutrophil # 10.94 X10^3/uL (2.7-7.7); Neutrophil % 76.2 % (47-70); Platelet Count 309 K/mm3 (150-450); RBC Distribution Width CV 15.1 % (11.6-14.6); RBC Distribution Width SD 46.1 fl (35.1-43.9); Red Blood Count 5.52 M/mm3 (4.2-5.4); White Blood Count 14.4 K/mm3 (4.4-11.0)
[2020-11-14 13:06] VITALS: PULSE 61; RESP 22
[2020-11-14] MEDS: Ipratropium/Albuterol Sulfate 3 ML AMPUL.NEB INHALATION (13:06)
[2020-11-14 13:19] LABS: ALB/GLOB Ratio 0.8 RATIO (0.9-2.4); AST(SGOT) 13 U/L (15-37); Alanine Aminotransfer ALT/SGPT 23 U/L (13-56); Albumin, Serum 3.2 g/dL (3.2-5.0); Alkaline Phosphatase 223 U/L (45-117); Anion Gap 6 (5-15); BUN 11 mg/dL (7-18); BUN/Creat Ratio 12.1 RATIO (10-20); Calcium,Total 9.5 mg/dL (8.5-10.1); Chloride 100 mmol/L (98-107); Creatinine, Serum 0.91 mg/dL (0.55-1.02); EST Glomerular Filtration Rate 69 mL/min (>60); Est Glom Filt Rate - Afr Amer 83 mL/min (>60); Estimated Creatinine Clearance 57.78 ml/min; Globulin 4.1 g/dL (2.2-4.2); Glucose 449 mg/dL (74-106); Potassium 4.4 mmol/L (3.5-5.1); Protein, Total 7.3 g/dL (6.4-8.2); Sodium Level 128 mmol/L (136-145); Troponin-I HS 5 pg/mL (3.0-54.0)
[2020-11-14 13:28] LABS: BNP,B-Type NATRIURETIC PEPTIDE 82.2 pg/mL (0-100)
--- NOTE | 2020-11-14 13:51 | RAD_ITS ---
STUDY: X-RAY CHEST REASON FOR EXAM: Female, 55 years old. Short of breath TECHNIQUE: Single frontal view of the chest. COMPARISON: 10/03/2020 FINDINGS: There is no new focal consolidation. Normal size heart. Normal mediastinum and alden. Normal visualized pulmonary arteries. Normal visualized aortic arch and descending thoracic aorta. Normal visualized thoracic spine. There is stable inferior migration of the left humeral head. There is no demonstrated abnormality of the visualized soft tissue structures of the upper abdomen. RAD/Chest 1 View (Portable) IMPRESSION: No acute cardiopulmonary processes. Electronically Signed: Jackie Rodríguez MD at 14:34 EDT Tel , Service support ,
[2020-11-14 14:51] VITALS: BP 133/91; PULSE 52; RESP 16; O2SAT 98
[2020-11-14 15:50] VITALS: PULSE 56; RESP 17; O2SAT 98
== END 2020-11-14 15:50 | disposition home or self-care (01) ==
PROVIDERS: Emergency Provider Emergency Medicine; PCP Family Medicine
DX: J44.1 Chronic obstructive pulmonary disease with (acute) exacerbation (principal); Z20.822 Contact with and (suspected) exposure to COVID-19; E11.9 Type 2 diabetes mellitus without complications; I10 Essential (primary) hypertension; K58.9 Irritable bowel syndrome, unspecified; F25.9 Schizoaffective disorder, unspecified; M48.061 Spinal stenosis, lumbar region without neurogenic claudication; K21.9 Gastro-esophageal reflux disease without esophagitis; E55.9 Vitamin D deficiency, unspecified; G47.33 Obstructive sleep apnea (adult) (pediatric); R06.02 Shortness of breath; M19.90 Unspecified osteoarthritis, unspecified site; E66.01 Morbid (severe) obesity due to excess calories; Z68.42 Body mass index [BMI] 45.0-49.9, adult; F17.210 Nicotine dependence, cigarettes, uncomplicated; Z99.81 Dependence on supplemental oxygen; Z79.1 Long term (current) use of non-steroidal anti-inflammatories (NSAID); Z79.01 Long term (current) use of anticoagulants; Z79.4 Long term (current) use of insulin; Z79.51 Long term (current) use of inhaled steroids; Z79.52 Long term (current) use of systemic steroids; Z79.891 Long term (current) use of opiate analgesic; Z79.899 Other long term (current) drug therapy; I25.2 Old myocardial infarction; Z86.711 Personal history of pulmonary embolism; Z98.84 Bariatric surgery status; Z98.61 Coronary angioplasty status
CPT/HCPCS: 71045; 80053; 83880; 84484; 85025; 87426; 93005; 94640; 99285

== ENCOUNTER 2020-11-18 13:23 | Emergency (ER) | payer MEDICARE, MEDICAID, SELFPAY ==
[2020-11-18 13:24] VITALS: BP 111/59; PULSE 78; RESP 15; TEMP 37; O2SAT 96; BMI 38.9
--- NOTE | 2020-11-18 14:03 | RAD_ITS ---
STUDY: X-RAY - RIGHT FOOT CLINICAL: Female, 55 years old. Pain along the plantar aspect of the foot. TECHNIQUE: 3 view(s) of the foot. COMPARISON: Comparison is made with prior examination dated 04/22/2004. FINDINGS: Prior ORIF of the distal fibula and medial malleolus. Normal talus, calcaneus, and tarsal bones. Normal visualized subtalar, talonavicular, calcaneocuboid, tarsal and tarsometatarsal articulations. Normal metatarsi. There is degenerative arthrosis of the metatarsophalangeal joint of the hallux with a hallux valgus deformity. Normal tibial and fibular sesamoid bones. Normal interphalangeal joint of the great toe. Normal phalanges of the great toe. Normal second through fifth metatarsophalangeal joints. Normal interphalangeal joints and phalanges of the lesser toes. Diffuse soft tissue swelling. RAD/Foot min 3 Views IMPRESSION: The diffuse soft tissue swelling. Electronically Signed: Manuelito Silva MD at 14:41 EDT , Service support ,
--- NOTE | 2020-11-18 16:24 | EDS_ITS ---
HPI History of Present Illness Chief Complaint: Lower Extremity Injury Narrative Narrative: Patient presents with right foot pain, she is wheelchair-bound and she hit her foot onto a door. She has no other injuries she has foot pain. while in the wheelchair [facility] Medical History Anemia Asthma Benign essential hypertension Bleeding tendency Chest pain Chronic cough Chronic narcotic use COPD (chronic obstructive pulmonary disease) Current use of insulin Delayed surgical wound healing Diabetes Emphysema of lung Gastroesophageal reflux disease High cholesterol Hip osteoarthritis History of pulmonary embolism History of stress test Hypertension Irregular heart beat Irritable bowel Morbid obesity with BMI of 45.0-49.9, adult Myocardial infarct On home oxygen therapy RACHEL (obstructive sleep apnea) Pancreatitis Peptic ulcer Schizoaffective disorder Sleep apnea Smoker Spinal stenosis of lumbar region at multiple levels Thyroid nodule Tobacco abuse Ulcer Vitamin D deficiency Home Medications atorvastatin 80 mg PO QHS 08/22/15 [History Last Taken 12/17/19 22:26] nitroglycerin 0.4 mg SL PRN PRN 11/08/16 [History Last Taken 11/01/17 0.4 MG] pregabalin 75 mg PO TID 03/08/18 [History Last Taken 12/18/19 14:40] risperidone 4 mg PO QHS 03/08/18 [History Last Taken 12/17/19 22:27] tizanidine 6 mg PO TID PRN PRN 03/08/18 [History Last Taken 12/18/19 14:37] trazodone 200 mg PO QHS 03/08/18 [History Last Taken 12/17/19 22:26] furosemide 20 mg PO DAILY 11/20/18 [History Last Taken 12/16/19] lisinopril 20 mg PO QHS 11/20/18 [History Last Taken 12/17/19 22:26] mirabegron 25 mg PO DAILY 11/20/18 [History Last Taken 12/18/19 08:47] apixaban 5 mg PO BID 05/02/19 [History Last Taken 12/18/19 10:22] buspirone 30 mg tablet 30 mg PO BID tab 06/27/19 [History Last Taken 12/18/19 08:46] sucralfate 1 gram tablet 1 g PO QACHS 06/27/19 [History Last Taken 12/18/19 16:13] tiotropium bromide 2.5 mcg/actuation mist for inhalation 2 puff INHALATION DAILY #4 g 09/30/19 [Rx Last Taken 12/18/19 13:02] montelukast 10 mg tablet 10 mg PO QHS #30 tab 10/30/19 [Rx Last Taken 12/17/19 22:26] acidophilus-pectin, citrus 2 tab PO BID 12/16/19 [History Last Taken 12/18/19 10:25] insulin glargine 40 units SC BID 12/18/19 [History Last Taken 12/18/19 10:25] dicyclomine 20 mg PO TIDAC #10 cap 03/16/20 [Rx Last Taken Unknown] metoclopramide HCl 10 mg PO 4X/DAY PRN #20 tab 03/16/20 [Rx Last Taken Unknown] clopidogrel 75 mg PO DAILY 07/31/20 [History Last Taken Unknown] insulin lispro [Humalog KwikPen Insulin] 10 unit SUBCUT TIDAC #0 ml 08/11/20 [Rx Last Taken Unknown] sennosides-docusate sodium [Stool Softener-Stimulant Laxat] 2 tab PO BID PRN PRN #0 tab 08/11/20 [Rx Last Taken Unknown] hydrocodone-acetaminophen 1 tab PO Q6H PRN PRN 10/03/20 [History Last Taken Unknown] potassium chloride [K-Tab] 40 meq PO DAILY #60 tab 10/05/20 [Rx Last Taken Unknown] albuterol sulfate 2 puff IH Q4H PRN PRN 11/14/20 [History Last Taken Unknown] amlodipine 10 mg PO DAILY 11/14/20 [History Last Taken Unknown] escitalopram oxalate 20 mg PO DAILY 11/14/20 [History Last Taken Unknown] fluticasone propion-salmeterol [Advair HFA] 2 puff INHALATION BID 11/14/20 [History Last Taken Unknown] fluticasone propionate [Flonase] 1 spray INTRANASAL BID 11/14/20 [History Last Taken Unknown] lamotrigine 25 mg PO DAILY 11/14/20 [History Last Taken Unknown] loperamide [Imodium A-D] 2 mg PO Q6H PRN 11/14/20 [History Last Taken Unknown] metoprolol succinate 50 mg PO DAILY 11/14/20 [History Last Taken Unknown] pantoprazole 40 mg PO BID 11/14/20 [History Last Taken Unknown] prednisone 40 mg PO DAILY #8 tab 11/14/20 [Rx Last Taken Unknown] promethazine 25 mg PO BID PRN PRN 11/14/20 [History Last Taken Unknown] Allergy/AdvReac Type Severity Reaction Status Date / Time amoxicillin Allergy Itching Verified 11/18/20 13:24 erythromycin base Allergy Unknown Verified 11/18/20 13:24 methadone Allergy Itching Verified 11/18/20 13:24 metolazone Allergy Unknown Verified 11/18/20 13:24 Penicillins Allergy Hives Verified 11/18/20 13:24 Sulfa (Sulfonamide Allergy Hives Verified 11/18/20 13:24 Antibiotics) clarithromycin [From Biaxin] AdvReac Nausea Verified 11/18/20 13:24 ibuprofen AdvReac 3 BLEEDING Verified 11/18/20 13:24 ULCERS morphine AdvReac HEADACHE Verified 11/18/20 13:24 oxycodone [From Percocet] AdvReac Itching Verified 11/18/20 13:24 Family History Mother Heart disease Cancer ovarian Father Hypertension Arthritis Hyperlipemia Grandmother Breast cancer Heart disease Grandfather Heart disease Surgical History H/O cardiac catheterization H/O heart artery stent History of appendectomy history of carpal tunnel release left wrist History of carpal tunnel surgery of left wrist History of cholecystectomy History of gastric bypass History of PTCA History of right ankle surgery history of right hip surgery History of tonsillectomy Social History Smoking Status: Current every day smoker tobacco type: cigarettes Tobacco: How many years used: 39 alcohol intake: never substance use type: does not use caffeine: No what type of physical activity do you participate in: none ROS ROS ED ROS Narrative Past medical history: I reviewed them, there is multiple medical problems in the list Medications: Reviewed Social history: Noncontributory Review of systems: Musculoskeletal: Foot pain as in HPI Skin: No abrasions or lacerations Neurological: No weakness or paresthesias Hematologic: No easy bleeding or easy bruising EXAM Physical Exam Narrative Exam Narrative: Physical exam General: Patient does not appear in significant distress . She is in a wheelchair Head: Normocephalic, Atraumatic Neck: No C-spine tenderness Cardiovascular: Normal distal pulses Back: Nontender, Normal Inspection. Extremities: She has tenderness over the second third and fourth toe regions. There is no abrasions or lacerations. No dorsum of the foot pain. Skin: No abrasions, no lacerations Neurological: Normal strength and sensation Const Vital Signs: 11/18/20 13:24 Temperature 98.6 F Temperature Source Oral Pulse Rate 78 Respiratory Rate 15 Blood Pressure 111/59 L Blood Pressure Mean 76 Pulse Ox 96 Oxygen Delivery Method Room Air MDM MDM MDM Narrative Medical decision making narrative: Patient has an unremarkable x-ray I will discharge with analgesia. Radiography Diagnostic Testing: Radiology Impression Foot X-Ray 11/18/20 14:03 IMPRESSION: The diffuse soft tissue swelling. Electronically Signed: Manuelito Silva MD at 14:41 EDT , Service support , X-ray interpreted by ER doctor and radiologist does not show any fracture, hardware is intact. Discharge Plan Triage Chief Complaint: Lower Extremity Injury ED Provider: Tom Nails Dx/Rx/DC Orders Clinical Impression: Contusion of foot Instructions: ED Foot Contusion Prescriptions: No Action sucralfate 1 gram tablet 1 g PO QACHS RF: 0 atorvastatin 80 MG tablet 80 mg PO QHS RF: 0 nitroglycerin 0.4 MG tablet, sublingual 0.4 mg SL PRN PRN (Reason: Cardiac/Chest Pain) RF: 0 risperidone 4 mg tablet 4 mg PO QHS RF: 0 trazodone 100 MG tablet 200 mg PO QHS RF: 0 pregabalin 75 MG capsule 75 mg PO TID RF: 0 tizanidine 4 MG tablet 6 mg PO TID PRN PRN (Reason: Spasms) RF: 0 buspirone 30 mg tablet 30 mg PO BID RF: 0 furosemide 20 MG tablet 20 mg PO DAILY RF: 0 mirabegron 25 MG tablet extended release 24 hr 25 mg PO DAILY RF: 0 lisinopril 20 MG tablet 20 mg PO QHS RF: 0 apixaban 5 MG tablet 5 mg PO BID RF: 0 acidophilus-pectin, citrus 1 TABLET tablet 2 tab PO BID RF: 0 insulin glargine 100 UNITS/ML insulin pen 40 units SC BID RF: 0 dicyclomine 10 MG capsule 20 mg PO TIDAC Qty: 10 RF: 0 metoclopramide HCl 10 MG tablet 10 mg PO 4X/DAY PRN (Reason: Headache) Qty: 20 RF: 0 clopidogrel 75 mg tablet 75 mg PO DAILY RF: 0 insulin lispro [Humalog KwikPen Insulin] 100 unit/mL Insulin Pen 10 unit subcut TIDAC Qty: 0 RF: 0 sennosides-docusate sodium [Stool Softener-Stimulant Laxat] 8.6-50 mg Tablet 2 tab PO BID PRN PRN (Reason: Constipation) Qty: 0 RF: 0 hydrocodone-acetaminophen 5-300 mg Tablet 1 tab PO Q6H PRN PRN (Reason: Pain) RF: 0 potassium chloride [K-Tab] 20 mEq tablet extended release 40 meq PO DAILY Qty: 60 RF: 0 lamotrigine 25 mg Tablet 25 mg PO DAILY RF: 0 promethazine 25 mg Tablet 25 mg PO BID PRN PRN (Reason: Nausea) RF: 0 escitalopram oxalate 20 mg Tablet 20 mg PO DAILY RF: 0 Advair HFA 230-21 mcg/actuation Hfa Aerosol Inhaler 2 puff INHALATION BID RF: 0 albuterol sulfate 1 PUFF HFA aerosol inhaler 2 puff IH Q4H PRN PRN (Reason: SOB &/or Wheezing ) RF: 0 loperamide [Imodium A-D] 2 mg Capsule 2 mg PO Q6H PRN (Reason: Diarrhea) RF: 0 pantoprazole 40 mg Tablet,Delayed Release (Dr/Ec) 40 mg PO BID RF: 0 fluticasone propionate [Flonase] 50 mcg/actuation [place],Suspension 1 spray INTRANASAL BID RF: 0 amlodipine 2.5 mg tablet 10 mg PO DAILY RF: 0 metoprolol succinate 25 mg tablet extended release 24 hr 50 mg PO DAILY RF: 0 prednisone 20 mg tablet 40 mg PO DAILY Qty: 8 RF: 0 tiotropium bromide 2.5 mcg/actuation mist 2 puff INHALATION DAILY Qty: 4 RF: 3 montelukast 10 mg tablet 10 mg PO QHS Qty: 30 RF: 5 Primary Care Provider: Janel Taylor Referrals: Janel Taylor MD [Primary Care Provider] - 3-5 Days Disposition Disposition: Home, Self Care
== END 2020-11-18 16:46 | disposition home or self-care (01) ==
PROVIDERS: Emergency Provider Emergency Medicine; PCP Family Medicine
DX: S90.31XA Contusion of right foot, initial encounter (principal); W22.09XA Striking against other stationary object, initial encounter; Y93.9 Activity, unspecified; Y92.9 Unspecified place or not applicable; Y99.9 Unspecified external cause status; I10 Essential (primary) hypertension; J44.9 Chronic obstructive pulmonary disease, unspecified; E11.9 Type 2 diabetes mellitus without complications; E04.1 Nontoxic single thyroid nodule; E55.9 Vitamin D deficiency, unspecified; K21.9 Gastro-esophageal reflux disease without esophagitis; E78.00 Pure hypercholesterolemia, unspecified; K58.9 Irritable bowel syndrome, unspecified; G47.33 Obstructive sleep apnea (adult) (pediatric); F25.9 Schizoaffective disorder, unspecified; E66.01 Morbid (severe) obesity due to excess calories; Z68.42 Body mass index [BMI] 45.0-49.9, adult; F17.210 Nicotine dependence, cigarettes, uncomplicated; Z99.3 Dependence on wheelchair; Z99.81 Dependence on supplemental oxygen; Z79.891 Long term (current) use of opiate analgesic; Z79.4 Long term (current) use of insulin; Z79.01 Long term (current) use of anticoagulants; Z79.02 Long term (current) use of antithrombotics/antiplatelets; Z79.51 Long term (current) use of inhaled steroids; Z79.52 Long term (current) use of systemic steroids; Z79.899 Other long term (current) drug therapy; I25.2 Old myocardial infarction; Z86.711 Personal history of pulmonary embolism; Z98.84 Bariatric surgery status
CPT/HCPCS: 73630; 99281; 99283

== ENCOUNTER 2020-11-25 20:49 | Inpatient (IN) | payer MEDICARE, MEDICAID, SELFPAY ==
[2020-11-25 20:52] VITALS: BP 72/40; PULSE 116; RESP 18; TEMP 35.9; O2SAT 96; BMI 35.4
[2020-11-25 21:30] VITALS: BP 66/47; PULSE 109
[2020-11-25] MEDS: 0.9% Normal Saline 1,000 ML 1000 ML IV (21:45)
--- NOTE | 2020-11-25 21:45 | EX.ED.DYSGE1 ---
HPI History of Present Illness Chief Complaint: General Illness Detail of Chief Complaint: Vomiting and diarrhea Informant: patient Narrative Narrative: Patient presents to the emergency department complaint of vomiting and diarrhea for the last 6 days. Patient states she was on antibiotics for an upper respiratory infection 2 weeks ago. Patient has had the Covid vaccine. She has been tested for Covid and last several weeks and has been negative. Patient feels lightheaded and dizzy. She denies any abdominal pain currently. Patient on apixaban for history of PEs. Prior similar symptoms: No PFSH PFSH Medical History Anemia Asthma Benign essential hypertension Bleeding tendency Chest pain Chronic cough Chronic narcotic use COPD (chronic obstructive pulmonary disease) Current use of insulin Delayed surgical wound healing Diabetes Emphysema of lung Gastroesophageal reflux disease High cholesterol Hip osteoarthritis History of pulmonary embolism History of stress test Hypertension Irregular heart beat Irritable bowel Morbid obesity with BMI of 45.0-49.9, adult Myocardial infarct On home oxygen therapy RACHEL (obstructive sleep apnea) Pancreatitis Peptic ulcer Schizoaffective disorder Sleep apnea Smoker Spinal stenosis of lumbar region at multiple levels Thyroid nodule Tobacco abuse Ulcer Vitamin D deficiency Home Medications atorvastatin 80 mg PO QHS 08/22/15 [History Last Taken 12/17/19 22:26] nitroglycerin 0.4 mg SL PRN PRN 11/08/16 [History Last Taken 11/01/17 0.4 MG] pregabalin 75 mg PO TID 03/08/18 [History Last Taken 12/18/19 14:40] risperidone 4 mg PO QHS 03/08/18 [History Last Taken 12/17/19 22:27] tizanidine 6 mg PO TID PRN PRN 03/08/18 [History Last Taken 12/18/19 14:37] trazodone 200 mg PO QHS 03/08/18 [History Last Taken 12/17/19 22:26] furosemide 20 mg PO DAILY 11/20/18 [History Last Taken 12/16/19] lisinopril 20 mg PO QHS 11/20/18 [History Last Taken 12/17/19 22:26] mirabegron 25 mg PO DAILY 11/20/18 [History Last Taken 12/18/19 08:47] apixaban 5 mg PO BID 05/02/19 [History Last Taken 12/18/19 10:22] buspirone 30 mg tablet 30 mg PO BID tab 06/27/19 [History Last Taken 12/18/19 08:46] sucralfate 1 gram tablet 1 g PO QACHS 06/27/19 [History Last Taken 12/18/19 16:13] tiotropium bromide 2.5 mcg/actuation mist for inhalation 2 puff INHALATION DAILY #4 g 09/30/19 [Rx Last Taken 12/18/19 13:02] montelukast 10 mg tablet 10 mg PO QHS #30 tab 10/30/19 [Rx Last Taken 12/17/19 22:26] acidophilus-pectin, citrus 2 tab PO BID 12/16/19 [History Last Taken 12/18/19 10:25] insulin glargine 40 units SC BID 12/18/19 [History Last Taken 12/18/19 10:25] dicyclomine 20 mg PO TIDAC #10 cap 03/16/20 [Rx Last Taken Unknown] metoclopramide HCl 10 mg PO 4X/DAY PRN #20 tab 03/16/20 [Rx Last Taken Unknown] clopidogrel 75 mg PO DAILY 07/31/20 [History Last Taken Unknown] insulin lispro [Humalog KwikPen Insulin] 10 unit SUBCUT TIDAC #0 ml 08/11/20 [Rx Last Taken Unknown] sennosides-docusate sodium [Stool Softener-Stimulant Laxat] 2 tab PO BID PRN PRN #0 tab 08/11/20 [Rx Last Taken Unknown] hydrocodone-acetaminophen 1 tab PO Q6H PRN PRN 10/03/20 [History Last Taken Unknown] potassium chloride [K-Tab] 40 meq PO DAILY #60 tab 10/05/20 [Rx Last Taken Unknown] albuterol sulfate 2 puff IH Q4H PRN PRN 11/14/20 [History Last Taken Unknown] amlodipine 10 mg PO DAILY 11/14/20 [History Last Taken Unknown] escitalopram oxalate 20 mg PO DAILY 11/14/20 [History Last Taken Unknown] fluticasone propion-salmeterol [Advair HFA] 2 puff INHALATION BID 11/14/20 [History Last Taken Unknown] fluticasone propionate [Flonase] 1 spray INTRANASAL BID 11/14/20 [History Last Taken Unknown] lamotrigine 25 mg PO DAILY 11/14/20 [History Last Taken Unknown] loperamide [Imodium A-D] 2 mg PO Q6H PRN 11/14/20 [History Last Taken Unknown] metoprolol succinate 50 mg PO DAILY 11/14/20 [History Last Taken Unknown] pantoprazole 40 mg PO BID 11/14/20 [History Last Taken Unknown] prednisone 40 mg PO DAILY #8 tab 11/14/20 [Rx Last Taken Unknown] promethazine 25 mg PO BID PRN PRN 11/14/20 [History Last Taken Unknown] Allergy/AdvReac Type Severity Reaction Status Date / Time amoxicillin Allergy Itching Verified 11/25/20 20:58 erythromycin base Allergy Unknown Verified 11/25/20 20:58 methadone Allergy Itching Verified 11/25/20 20:58 metolazone Allergy Unknown Verified 11/25/20 20:58 Penicillins Allergy Hives Verified 11/25/20 20:58 Sulfa (Sulfonamide Allergy Hives Verified 11/25/20 20:58 Antibiotics) clarithromycin [From Biaxin] AdvReac Nausea Verified 11/25/20 20:58 ibuprofen AdvReac 3 BLEEDING Verified 11/25/20 20:58 ULCERS morphine AdvReac HEADACHE Verified 11/25/20 20:58 oxycodone [From Percocet] AdvReac Itching Verified 11/25/20 20:58 Family History Mother Heart disease Cancer ovarian Father Hypertension Arthritis Hyperlipemia Grandmother Breast cancer Heart disease Grandfather Heart disease Surgical History H/O cardiac catheterization H/O heart artery stent History of appendectomy history of carpal tunnel release left wrist History of carpal tunnel surgery of left wrist History of cholecystectomy History of gastric bypass History of PTCA History of right ankle surgery history of right hip surgery History of tonsillectomy Social History Smoking Status: Current every day smoker tobacco type: cigarettes Tobacco: How many years used: 39 alcohol intake: never substance use type: does not use caffeine: No what type of physical activity do you participate in: none ROS ROS ED Constitutional Constitutional ED: Reports systems reviewed and no addt'l complaints, except as documented; Denies body ache(s), change in weight or chills Eyes Eyes: Denies acute decrease in peripheral vision, change in vision, double vision or loss of vision ENT ENT ED: Reports none; Denies ear pain, lip swelling, loss taste/smell, neck pain, otalgia or sore throat Cardiovascular Cardiovascular: Reports none; Denies abdominal pain, chest pain with activity, leg edema, lightheadedness, palpitations, rapid heart rate or syncope Respiratory/Chest Respiratory/Chest: Reports none and cough; Denies change in mental status, dry cough, dyspnea, hemoptysis, shortness of breath at rest or shortness of breath with exertion Gastrointestinal Gastrointestinal: Reports none, diarrhea, nausea and vomiting; Denies abdominal pain, change in stool character, hematemesis, hematochezia, melena or rectal bleeding Genitourinary Genitourinary ED: Reports none; Denies abdominal discomfort, anuria, dysuria, genital pain or polyuria Musculoskeletal Musculoskeletal: Reports none; Denies arthralgias, back pain, difficulty walking, extremity pain, muscle weakness or myalgias Integumentary Reports none; Denies abscess or rash Neurologic Neurologic: Reports none; Denies abnormal gait, confusion, focal weakness, frequent falls, headache(s), loss of vision, numbness, paresthesias, radicular pain, vertigo or weakness Psychiatric Psychiatric: Reports systems reviewed and no addt'l complaints, except as documented and none; Denies behavioral changes, confusion, difficulty concentrating, hallucinations, suicidal ideation, tactile hallucinations or visual hallucinations Endocrine Endocrinology: Denies none, cold intolerance, excessive sweating, fatigue or heat intolerance Hematologic/Lymphatic Hematologic/Lymphatic: Reports none; Denies anemia, easy bleeding or easy bruising Allergic/Immunologic Allergic/Immunologic ED: Denies as per HPI, none, lip swelling, mouth swelling, throat swelling, tongue swelling or hives EXAM Physical Exam Const Vital Signs: 11/25/20 20:52 11/25/20 21:30 11/25/20 21:59 Temperature 96.6 F L 96.6 F L Temperature Source Temporal Temporal Pulse Rate 116 H 109 H 109 H Respiratory Rate 18 18 Blood Pressure 72/40 L 66/47 L 112/90 H Blood Pressure Mean 50 53 97 Pulse Ox 96 96 Oxygen Delivery Method Room Air Room Air 11/25/20 22:29 11/25/20 23:00 Temperature 99.1 F 99.1 F Temperature Source Oral Oral Pulse Rate 94 88 Respiratory Rate 20 H 19 H Blood Pressure 112/90 H 93/53 L Blood Pressure Mean 97 66 Pulse Ox 96 96 Oxygen Delivery Method Room Air Room Air Positive well nourished and well developed General Appearance ED: well developed and NAD HEENT Reports TM's clear and moist mucous membranes normocephalic and atraumatic; Negative for trauma or tenderness Tympanic Membrane ED: Yes TM's clear Eyes PERRL and EOMs intact bilaterally General Eye ED: Negative for pale conjunctiva or scleral icterus Neck no lymphadenopathy, supple and no JVD General: Negative for tenderness Chest Wall inspection of chest normal and palpation of chest normal Chest: Negative for tenderness Resp normal respiratory effort and clear to auscultation bilaterally Effort and Inspection: Negative for respiratory distress or pain with movement Auscultation: Negative for rhonchi, wheezes or diminished lung sounds Cardio regular rate, regular rhythm, S1 normal heart sound, S2 normal heart sound and no murmurs Peripheral Pulses: pulses 2+ throughout GI normal to inspection, nondistended, normoactive bowel sounds, soft to palpation, non-tender, non-distended and no masses Back/Spine no CVA tenderness and no thoracic nor lumbar tenderness Extremity normal to inspection General Extremety ED: Negative for edema General Extremity: Negative for edema Neuro oriented x3, CN's II-XII intact bilaterally, no sensory deficits noted and gait normal Sensorium / Orientation: awake, alert, oriented to person, oriented to place and oriented to time Motor Exam: strength 5/5 throughout and strength abnormal Psych mental status grossly normal Skin no rashes or lesions noted and no wounds MDM MDM MDM Narrative Medical decision making narrative: IV line established on arrival. Patient was given normal saline fluid bolus. Her blood pressure responded and systolic went up to over 100. Patient had ordered enteric pathogens and C. difficile however she has not given a stool sample as of yet. Patient is noted to have acute kidney injury. Case will be discussed with hospitalist will evaluate patient for admission. Lab Data Attestation: I reviewed the patient's lab results. Labs: Laboratory Results - last 24 hr 11/25/20 11/25/20 11/25/20 21:20 21:20 21:40 WBC 18.9 H RBC 5.72 H Hgb 15.5 H Hct 47.4 H MCV 82.9 MCH 27.1 MCHC 32.7 RDW Std Deviation 49.1 H RDW Coeff of [place] 16.6 H Plt Count 334 MPV 9.8 Immature Gran % (Auto) 0.700 Neut % (Auto) 77.6 H Lymph % (Auto) 11.6 L [place] % (Auto) 8.7 Eos % (Auto) 0.8 Baso % (Auto) 0.6 Absolute Neuts (auto) 14.6 H Absolute Lymphs (auto) 2.18 Nucleated RBC % 0 Differential Comment SCANNED Diff Path Review July foll Sodium 128 L Potassium 3.7 Chloride 98 Carbon Dioxide 21.0 Anion Gap 9 BUN 33 H Creatinine 2.20 H Estim Creat Clear Calc 23.90 Est GFR (MDRD) Af Amer 30 L Est GFR (MDRD) Non-Af 25 L BUN/Creatinine Ratio 15.0 Glucose 231 H Lactic Acid 1.9 Calcium 9.3 Total Bilirubin 0.30 AST 55 H ALT 30 Alkaline Phosphatase 201 H Total Protein 6.8 Albumin 3.4 Globulin 3.4 Albumin/Globulin Ratio 1.0 Radiography Diagnostic Testing: Radiology Impression Chest X-Ray 11/25/20 21:46 IMPRESSION: No radiographic evidence of acute cardiopulmonary disease. ASSESSMENT: NEGATIVE report - No abnormal findings. Electronically Signed: Pelon Fuller MD at 22:30 EDT Tel , Service support , Discharge Plan Triage Chief Complaint: General Illness ED Provider: Shanel Barbosa Dx/Rx/DC Orders Clinical Impression: Diarrhea, Acute dehydration, Acute kidney injury, Acute hypotension Prescriptions: No Action sucralfate 1 gram tablet 1 g PO QACHS RF: 0 atorvastatin 80 MG tablet 80 mg PO QHS RF: 0 nitroglycerin 0.4 MG tablet, sublingual 0.4 mg SL PRN PRN (Reason: Cardiac/Chest Pain) RF: 0 risperidone 4 mg tablet 4 mg PO QHS RF: 0 trazodone 100 MG tablet 200 mg PO QHS RF: 0 pregabalin 75 MG capsule 75 mg PO TID RF: 0 tizanidine 4 MG tablet 6 mg PO TID PRN PRN (Reason: Spasms) RF: 0 buspirone 30 mg tablet 30 mg PO BID RF: 0 furosemide 20 MG tablet 20 mg PO DAILY RF: 0 mirabegron 25 MG tablet extended release 24 hr 25 mg PO DAILY RF: 0 lisinopril 20 MG tablet 20 mg PO QHS RF: 0 apixaban 5 MG tablet 5 mg PO BID RF: 0 acidophilus-pectin, citrus 1 TABLET tablet 2 tab PO BID RF: 0 insulin glargine 100 UNITS/ML insulin pen 40 units SC BID RF: 0 dicyclomine 10 MG capsule 20 mg PO TIDAC Qty: 10 RF: 0 metoclopramide HCl 10 MG tablet 10 mg PO 4X/DAY PRN (Reason: Headache) Qty: 20 RF: 0 clopidogrel 75 mg tablet 75 mg PO DAILY RF: 0 insulin lispro [Humalog KwikPen Insulin] 100 unit/mL Insulin Pen 10 unit subcut TIDAC Qty: 0 RF: 0 sennosides-docusate sodium [Stool Softener-Stimulant Laxat] 8.6-50 mg Tablet 2 tab PO BID PRN PRN (Reason: Constipation) Qty: 0 RF: 0 hydrocodone-acetaminophen 5-300 mg Tablet 1 tab PO Q6H PRN PRN (Reason: Pain) RF: 0 potassium chloride [K-Tab] 20 mEq tablet extended release 40 meq PO DAILY Qty: 60 RF: 0 lamotrigine 25 mg Tablet 25 mg PO DAILY RF: 0 promethazine 25 mg Tablet 25 mg PO BID PRN PRN (Reason: Nausea) RF: 0 escitalopram oxalate 20 mg Tablet 20 mg PO DAILY RF: 0 Advair HFA 230-21 mcg/actuation Hfa Aerosol Inhaler 2 puff INHALATION BID RF: 0 albuterol sulfate 1 PUFF HFA aerosol inhaler 2 puff IH Q4H PRN PRN (Reason: SOB &/or Wheezing ) RF: 0 loperamide [Imodium A-D] 2 mg Capsule 2 mg PO Q6H PRN (Reason: Diarrhea) RF: 0 pantoprazole 40 mg Tablet,Delayed Release (Dr/Ec) 40 mg PO BID RF: 0 fluticasone propionate [Flonase] 50 mcg/actuation [place],Suspension 1 spray INTRANASAL BID RF: 0 amlodipine 2.5 mg tablet 10 mg PO DAILY RF: 0 metoprolol succinate 25 mg tablet extended release 24 hr 50 mg PO DAILY RF: 0 prednisone 20 mg tablet 40 mg PO DAILY Qty: 8 RF: 0 tiotropium bromide 2.5 mcg/actuation mist 2 puff INHALATION DAILY Qty: 4 RF: 3 montelukast 10 mg tablet 10 mg PO QHS Qty: 30 RF: 5 Primary Care Provider: Janel Taylor Referrals: Janel Taylor MD [Primary Care Provider] - Disposition Disposition: Acute Care Hospital [facility]
--- NOTE | 2020-11-25 21:46 | RAD_ITS ---
EXAM: XR Chest, 1 View CLINICAL INDICATION: 55 years old, Female; dyspnea TECHNIQUE: Frontal view of the chest. This report was created using [employer] report generation technology. COMPARISON: None. FINDINGS: Lungs and pleural spaces: Unremarkable. No consolidation or edema. No pneumothorax. No effusion. Heart: Unremarkable. Cardiac silhouette not enlarged. Mediastinum: Central airways and mediastinal contour are unremarkable. Bones/joints: Unremarkable. Soft tissues: Unremarkable. RAD/Chest 1 View (Portable) IMPRESSION: No radiographic evidence of acute cardiopulmonary disease. ASSESSMENT: NEGATIVE report - No abnormal findings. Electronically Signed: Pelon Fuller MD at 22:30 EDT Tel , Service support ,
[2020-11-25 21:59] VITALS: BP 112/90; BP 66/47; PULSE 109; RESP 18; TEMP 35.9; O2SAT 96
[2020-11-25 22:15] LABS: Absolute Lymphocyte Count 2.18 X10^3/uL (0.83-4.51); Absolute Neutrophil Count 14.6 X10^3/uL (2.0-7.7); Basophil# 0.11 X10^3/uL; Basophil% 0.6 % (0-1); Eosinophil# 0.16 X10^3/uL; Eosinophils% 0.8 % (0-5); Hematocrit 47.4 % (37-47); Hemoglobin 15.5 g/dL (12.0-15.0); Lymphocyte # 2.18 X10^3/ul (0.83-4.51); Lymphocyte % 11.6 % (19-41); Mean Corp Hgb Conc 32.7 g/dL (32-36); Mean Corpuscular Hgb 27.1 pg (27.0-32.0); Mean Corpuscular Volume 82.9 fL (81-99); Mean Platelet Vol. 9.8 fl (6.2-12.0); Monocyte# 1.64 X10^3/uL; Monocyte% 8.7 % (0-10); NRBC Flagged by Analyzer 0 % (0-5); Neutrophil # 14.62 X10^3/uL (2.7-7.7); Neutrophil % 77.6 % (47-70); POSITIVE DIFFERENTIAL YES; Platelet Count 334 K/mm3 (150-450); RBC Distribution Width CV 16.6 % (11.6-14.6); RBC Distribution Width SD 49.1 fl (35.1-43.9); Red Blood Count 5.72 M/mm3 (4.2-5.4); White Blood Count 18.9 K/mm3 (4.4-11.0)
[2020-11-25 22:17] LABS: Differential Indicated SCAN CRITERIA MET
[2020-11-25] MEDS: Ondansetron 4 MG/2 ML Vial IV (22:20)
[2020-11-25 22:29] VITALS: BP 112/90; PULSE 94; RESP 20; TEMP 37.3; O2SAT 96
[2020-11-25 22:30] LABS: AST(SGOT) 55 U/L (15-37); Alanine Aminotransfer ALT/SGPT 30 U/L (13-56); Albumin, Serum 3.4 g/dL (3.2-5.0); Alkaline Phosphatase 201 U/L (45-117); Anion Gap 9 (5-15); BUN 33 mg/dL (7-18); Calcium,Total 9.3 mg/dL (8.5-10.1); Chloride 98 mmol/L (98-107); EST Glomerular Filtration Rate 25 mL/min (>60); Est Glom Filt Rate - Afr Amer 30 mL/min (>60); Globulin 3.4 g/dL (2.2-4.2); Glucose 231 mg/dL (74-106); Potassium 3.7 mmol/L (3.5-5.1); Protein, Total 6.8 g/dL (6.4-8.2); Sodium Level 128 mmol/L (136-145)
[2020-11-25 22:47] LABS: Differential Comment SCANNED
[2020-11-25 22:57] LABS: Mucous, Urine 0 SEEN /hpf (<or=2+); Red Blood Cells-Urine 0 SEEN /hpf (0-5)
[2020-11-25 23:00] VITALS: BP 93/53; PULSE 88; RESP 19; TEMP 37.3; O2SAT 96
[2020-11-25 23:07] LABS: Lactic Acid 1.9 mmol/L (0.4-1.9)
[2020-11-25 23:15] LABS: Color, Urine Yellow (Yellow); Glucose, Dipstick 100 mg/dl (Normal); Ketone-Dipstick 5 mg/dl (Negative); Leukocyte Esterase-Dipstick 100 /ul (Negative); Nitrite-Dipstick Negative (Negative); Occult Blood-Urine Negative /ul (Negative); Protein-Dipstick 30 mg/dl (Negative); Specific Gravity, Urine 1.025 (1.002-1.030); Urine Clarity Clear (Clear); Urine Urobilinogen 4 mg/dl (Normal)
--- NOTE | 2020-11-25 23:16 | HP.PCM.HOS_ITS ---
HPI - General General Date of Admission: 11/25/20 Date of Service: 11/25/20 Chief Complaint: N/V/D HPI Narrative The patient is a 55 y/o F w/ PMHx: Chronic anemia/iron deficiency, Asthma, HTN, HLD, Obesity s/p gastic bypass, Chronic COPD, GERD/Hx PUD, Hx PE, CAD s/p PCI, Diabetes mellitus type II, Schizoaffective disorder, RACHEL, Tobacco use, Chronic back pain, RACHEL, Tobacco use who presents to the [facility] ED on 11/25/20 with history of ongoing severe nausea, emesis, diarrhea with progressive weakness, fatigue and malaise, poor oral intake x6 days prompting eventual ED presentation. In addition she also notes fever, chills, cough, shortness of breath, lightheadedness and dizziness in addition to her GI symptoms. Patient was recently on abx therapy ~ 2 weeks prior. Patient does report associated abdominal cramping, more severe following oral intake and bowel movements, reports discomfort 6 out of 10 in severity. Patient also reports lightheadedness and dizziness with activity recently and discussed significant fall risk given severity of hypotension and GI losses to which patient is understanding. She reports having been vaccinated against COVID. Work-up in the ED included T 96.6, heart rate initially 116 with decreased to 109, initial BP 72/40 with repeat 66/47 and most recently 112/90, respiratory rate 15-18, 96% on room air, CBC with WBC 18.9, hemoglobin 15.5, platelet 334 with left shift, CMP with sodium 128, BUN/creatinine 33/2.20, glucose 231, AST/LT 55/30, alk phos 201, Covid PCR pending, chest x-ray with no acute cardiopulmonary findings. In the ED patient ministered IV Zofran and 1 L normal saline bolus. [facility] Medical History Anemia Asthma Benign essential hypertension Bleeding tendency Chest pain Chronic cough Chronic narcotic use COPD (chronic obstructive pulmonary disease) Current use of insulin Delayed surgical wound healing Diabetes Emphysema of lung Gastroesophageal reflux disease High cholesterol Hip osteoarthritis History of pulmonary embolism History of stress test Hypertension Irregular heart beat Irritable bowel Morbid obesity with BMI of 45.0-49.9, adult Myocardial infarct On home oxygen therapy RACHEL (obstructive sleep apnea) Pancreatitis Peptic ulcer Schizoaffective disorder Sleep apnea Smoker Spinal stenosis of lumbar region at multiple levels Thyroid nodule Tobacco abuse Ulcer Vitamin D deficiency Home Medications atorvastatin 80 mg PO QHS 08/22/15 [History Last Taken 12/17/19 22:26] nitroglycerin 0.4 mg SL PRN PRN 11/08/16 [History Last Taken 11/01/17 0.4 MG] pregabalin 75 mg PO TID 03/08/18 [History Last Taken 12/18/19 14:40] risperidone 4 mg PO QHS 03/08/18 [History Last Taken 12/17/19 22:27] tizanidine 6 mg PO TID PRN PRN 03/08/18 [History Last Taken 12/18/19 14:37] trazodone 200 mg PO QHS 03/08/18 [History Last Taken 12/17/19 22:26] furosemide 20 mg PO DAILY 11/20/18 [History Last Taken 12/16/19] lisinopril 20 mg PO QHS 11/20/18 [History Last Taken 12/17/19 22:26] mirabegron 25 mg PO DAILY 11/20/18 [History Last Taken 12/18/19 08:47] apixaban 5 mg PO BID 05/02/19 [History Last Taken 12/18/19 10:22] buspirone 30 mg tablet 30 mg PO BID tab 06/27/19 [History Last Taken 12/18/19 08:46] sucralfate 1 gram tablet 1 g PO QACHS 06/27/19 [History Last Taken 12/18/19 16:13] tiotropium bromide 2.5 mcg/actuation mist for inhalation 2 puff INHALATION DAILY #4 g 09/30/19 [Rx Last Taken 12/18/19 13:02] montelukast 10 mg tablet 10 mg PO QHS #30 tab 10/30/19 [Rx Last Taken 12/17/19 22:26] acidophilus-pectin, citrus 2 tab PO BID 12/16/19 [History Last Taken 12/18/19 10:25] insulin glargine 40 units SC BID 12/18/19 [History Last Taken 12/18/19 10:25] dicyclomine 20 mg PO TIDAC #10 cap 03/16/20 [Rx Last Taken Unknown] metoclopramide HCl 10 mg PO 4X/DAY PRN #20 tab 03/16/20 [Rx Last Taken Unknown] clopidogrel 75 mg PO DAILY 07/31/20 [History Last Taken Unknown] insulin lispro [Humalog KwikPen Insulin] 10 unit SUBCUT TIDAC #0 ml 08/11/20 [Rx Last Taken Unknown] sennosides-docusate sodium [Stool Softener-Stimulant Laxat] 2 tab PO BID PRN PRN #0 tab 08/11/20 [Rx Last Taken Unknown] hydrocodone-acetaminophen 1 tab PO Q6H PRN PRN 10/03/20 [History Last Taken Unknown] potassium chloride [K-Tab] 40 meq PO DAILY #60 tab 10/05/20 [Rx Last Taken Unknown] albuterol sulfate 2 puff IH Q4H PRN PRN 11/14/20 [History Last Taken Unknown] amlodipine 10 mg PO DAILY 11/14/20 [History Last Taken Unknown] escitalopram oxalate 20 mg PO DAILY 11/14/20 [History Last Taken Unknown] fluticasone propion-salmeterol [Advair HFA] 2 puff INHALATION BID 11/14/20 [History Last Taken Unknown] fluticasone propionate [Flonase] 1 spray INTRANASAL BID 11/14/20 [History Last Taken Unknown] lamotrigine 25 mg PO DAILY 11/14/20 [History Last Taken Unknown] loperamide [Imodium A-D] 2 mg PO Q6H PRN 11/14/20 [History Last Taken Unknown] metoprolol succinate 50 mg PO DAILY 11/14/20 [History Last Taken Unknown] pantoprazole 40 mg PO BID 11/14/20 [History Last Taken Unknown] prednisone 40 mg PO DAILY #8 tab 11/14/20 [Rx Last Taken Unknown] promethazine 25 mg PO BID PRN PRN 11/14/20 [History Last Taken Unknown] Allergy/AdvReac Type Severity Reaction Status Date / Time amoxicillin Allergy Itching Verified 11/25/20 20:58 erythromycin base Allergy Unknown Verified 11/25/20 20:58 methadone Allergy Itching Verified 11/25/20 20:58 metolazone Allergy Unknown Verified 11/25/20 20:58 Penicillins Allergy Hives Verified 11/25/20 20:58 Sulfa (Sulfonamide Allergy Hives Verified 11/25/20 20:58 Antibiotics) clarithromycin [From Biaxin] AdvReac Nausea Verified 11/25/20 20:58 ibuprofen AdvReac 3 BLEEDING Verified 11/25/20 20:58 ULCERS morphine AdvReac HEADACHE Verified 11/25/20 20:58 oxycodone [From Percocet] AdvReac Itching Verified 11/25/20 20:58 Family History Mother Heart disease Cancer ovarian Father Hypertension Arthritis Hyperlipemia Grandmother Breast cancer Heart disease Grandfather Heart disease Surgical History H/O cardiac catheterization H/O heart artery stent History of appendectomy history of carpal tunnel release left wrist History of carpal tunnel surgery of left wrist History of cholecystectomy History of gastric bypass History of PTCA History of right ankle surgery history of right hip surgery History of tonsillectomy Social History (Updated 11/26/20 @ 00:[address] Monica Barragan MD) household members: none Smoking Status: Current every day smoker tobacco type: cigarettes Smoking packs per day: 1 Smoking cigarettes per day: 20.0 Years smoked: 39 Smoking pack-years: 39.00 Tobacco: How many years used: 39 alcohol intake: never substance use type: does not use caffeine: No what type of physical activity do you participate in: none ROS ROS Narrative Admission Review of Systems: CONSTITUTIONAL: No weight loss, + fever, chills, weakness or fatigue. HEENT: + Headache. Eyes: No visual loss, blurred vision, double vision or yellow sclerae. Ears, Nose, Throat: No hearing loss, sneezing, congestion, runny nose or sore throat. SKIN: No rash or itching, lesions, wounds. CARDIOVASCULAR: No chest pain, chest pressure or chest discomfort, palpitations, edema, orthopnea, syncopal events. RESPIRATORY: + shortness of breath, cough, No marked sputum, wheezing, hemoptysis. GASTROINTESTINAL: + anorexia, nausea, vomiting, diarrhea, abdominal pain, No melena, BRBPR. GENITOURINARY: No dysuria, frequency, urgency or retention. NEUROLOGICAL: + headache, LH, dizziness, No syncope, paralysis, ataxia, numbness or tingling in the extremities, focal weakness, change in bowel or bladder control, seizure. MUSCULOSKELETAL: + muscle, back pain, joint pain or stiffness. HEMATOLOGIC: + anemia, bleeding or bruising. LYMPHATICS: No enlarged nodes. No history of splenectomy. PSYCHIATRIC: + history of depression or anxiety. ENDOCRINOLOGIC: No reports of sweating, cold or heat intolerance. No polyuria or polydipsia. ALLERGIES: No history of asthma, hives, eczema or rhinitis. Vital Signs Vital Signs Vital Signs: 11/25/20 20:52 11/25/20 21:30 11/25/20 21:59 Temperature 96.6 F L 96.6 F L Temperature Source Temporal Temporal Pulse Rate 116 H 109 H 109 H Respiratory Rate 18 18 Blood Pressure 72/40 L 66/47 L 112/90 H Blood Pressure Mean 50 53 97 Pulse Ox 96 96 Oxygen Delivery Method Room Air Room Air 11/25/20 22:29 11/25/20 23:00 Temperature 99.1 F 99.1 F Temperature Source Oral Oral Pulse Rate 94 88 Respiratory Rate 20 H 19 H Blood Pressure 112/90 H 93/53 L Blood Pressure Mean 97 66 Pulse Ox 96 96 Oxygen Delivery Method Room Air Room Air Weight Weight: 200 lb Body Mass Index (BMI) 35.4 Physical Exam Narrative Physical Examination: General: Awake, alert, oriented x 3 and cooperative, laying in the ED bed, fatigued and ill-appearing, hoarse voice. Skin: Normal color, normal turgor, no icterus, no cyanosis. HEENT: AT/NC, EOMI, PERRLA, dry MM, no carotid bruits or JVD noted. Lungs: Diminished breath sounds, greater bases, moderate effort, no evidence of any distress, no rales, ronchi or wheezing. Heart: Mildly tachycardic with regular rhythm; no gallop, rub audible. Abdomen: Soft, obese, generalized discomfort with no rebound or guarding, minimally distended but difficult given habitus, distant hyperactive BS, no obvious evidence of HSM however discomfort makes examination difficult. Extremities: No cyanosis, clubbing, or edema. Neurological: Patient awake, alert, oriented as noted, cognitive function intact; pupils equally reactive to light and accommodation, cranial nerves II- XII grossly normal, moving all 4 extremities, no focal deficits, strength severely globally Dinah secondary to acute presentation. Psychiatric: Affect appears fatigued, ill-appearing,, no acute evidence of depressive or anxiety feelings. Results Lab / Micro Data Result Diagrams: 11/25/20 21:20 11/25/20 21:20 Labs: Laboratory Results - last 24 hr 11/25/20 21:20: WBC 18.9 H, RBC 5.72 H, Hgb 15.5 H, Hct 47.4 H, MCV 82.9, MCH 27.1, MCHC 32.7, RDW Std Deviation 49.1 H, RDW Coeff of Kaycee 16.6 H, Plt Count 334, MPV 9.8, Immature Gran % (Auto) 0.700, Neut % (Auto) 77.6 H, Lymph % (Auto) 11.6 L, [place] % (Auto) 8.7, Eos % (Auto) 0.8, Baso % (Auto) 0.6, Absolute Neuts (auto) 14.6 H, Absolute Lymphs (auto) 2.18, Nucleated RBC % 0, Differential Comment SCANNED, Diff Path Review July11/25/20 21:20: Sodium 128 L, Potassium 3.7, Chloride 98, Carbon Dioxide 21.0, Anion Gap 9, BUN 33 H, Creatinine 2.20 H, Estim Creat Clear Calc 23.90, Est GFR (MDRD) Af Amer 30 L, Est GFR (MDRD) Non-Af 25 L, BUN/Creatinine Ratio 15.0, Glucose 231 H, Calcium 9.3, Total Bilirubin 0.30, AST 55 H, ALT 30, Alkaline Phosphatase 201 H, Total Protein 6.8, Albumin 3.4, Globulin 3.4, Albumin/Globulin Ratio 1.0 11/25/20 21:40: Lactic Acid 1.9 Radiology Impression Chest X-Ray 11/25/20 21:46 IMPRESSION: No radiographic evidence of acute cardiopulmonary disease. ASSESSMENT: NEGATIVE report - No abnormal findings. Electronically Signed: Pelon Fuller MD at 22:30 EDT Tel , Service support , Assessment & Plan Assessment/Plan (1) Acute kidney injury: (2) Acute hypotension: (3) Acute gastroenteritis: PLAN: The patient is a 55 y/o F w/ PMHx: Chronic anemia/iron deficiency, Asthma, HTN, HLD, Obesity s/p gastic bypass, Chronic COPD, GERD/Hx PUD, Hx PE, CAD s/p PCI, Diabetes mellitus type II, Schizoaffective disorder, RACHEL, Tobacco use, Chronic back pain, RACHEL, Tobacco use who presents to the [facility] ED on 11/25/20 with history of ongoing severe nausea, emesis, diarrhea with progressive weakness, fatigue and malaise, poor oral intake x6 days prompting eventual ED pr esentation. 1. N/V/D, Gastroenteritis versus Acute Viral Syndrome, COVID-19 with associated severe hypotension, Higher suspicion given recent Abx for Acute C-difficile Colitis: Given significant hypotension upon initial presentation, will admit to PCU for closer monitoring, awaiting Covid PCR testing given history, will maintain on Covid precautions until testing has resulted, currently patient is not hypoxic but has had significant GI losses, pending Covid results in the interim will continue hydration, obtain C. difficile as well as enteric stool assessment, given significant dehydration we will hold on immediate antibiotic therapies as likely significant dehydration associated with WBC elevation, if results Covid positive or if prior to this C. difficile negative and enteric pathogens are also negative would initiate antidiarrheal regimen. If patient does result with Covid positive status will additionally obtain D-dimer, procalcitonin, CRP, CPK, ferritin, LDH, troponin and BNP with continued aggressive supportive care. Patient is not hypoxic currently 96% on room air therefore will defer immediate initiation of IV Decadron and given this case as well as ZUHAIR would defer any IV remdesivir. 2. Acute kidney injury: Secondary to severity of GI losses. Admission BUN/Cr 33/2.20, prior baseline creatinine noted to be 0.5-0.8 primarily. Will hydrate, hold nephrotoxic medications and repeat chemistry in AM, if not improving will obtain FeNa assessment and renal ultrasound. 3. Chronic Asthma w/ allergic rhinitis: Will maintain on oxygen with wean as tolerated to room air, continue ATC duonebs, PRN albuterol, continue home Singulair as well as fluticasone regimen, HOB, IS parameters. 4. Chronic anemia/iron deficiency: Admission hemoglobin 15.5, baseline most recently 13-14, stable, continue iron supplementation, trend CBC. 5. Diabetes mellitus type II: Hold oral home regimen, continue home insulin regimen however if hypoglycemic or poor intake may consider decrease by /2, will start with clears and ADAT to ADA diet, accu checks w/ ISS. 6. CAD: Status post PCI, will continue Plavix, apixaban, statin therapy, holding hypertensive regimen given hypotensive presentation. 7. Hypertension: Holding hypertensive regimen given hypotensive presentation, add back once appropriate. 8. Hyperlipidemia: We will continue patient on statin therapy. 9. History pulmonary embolism: We will continue patient home apixaban regimen, SCDs. 10. GERD with history of peptic ulcer disease: We will continue patient home PPI and sucralfate regimen. 11. Schizoaffective disorder: We will continue patient home nightly trazodone, BuSpar, risperidone, lamotrigine, escitalopram regimen however will hold for sedation especially given hypotensive presentation. 12. Tobacco Abuse: Encouraged cessation, inpatient consultation per RT, NR if desired. 13. Chronic back pain: We will continue patient home chronic tizanidine and [place] regimen with hold parameters for sedation especially given hypotensive presentation. 14. RACHEL: We will continue BiPAP nightly. 15. DVT prophylaxis: SCDs, continue home apixaban regimen. Charges/Coding Visit Charges Inpatient E&M: 71508 Init Hosp L3
[2020-11-25] MEDS: 0.9% Normal Saline 1,000 ML 999 ML IV (23:22)
[2020-11-25 23:28] LABS: Urine Bilirubin Dipstick 1 mg/dL (Negative)
[2020-11-25 23:49] VITALS: BP 100/51; PULSE 91; RESP 18; TEMP 37.2; O2SAT 98
[2020-11-25 23:59] LABS: Magnesium 1.8 mg/dL (1.6-2.6); Phosphorus 4.3 mg/dL (2.5-4.9)
[2020-11-26] VITALS (14 sets, daily range): BP systolic 82–127; BP diastolic 56–81; PULSE 78–103; RESP 16–24; TEMP 36.5–37.7; O2SAT 92–97; BMI 38.4
[2020-11-26] MEDS: fentaNYL 100 MCG/2 ML Ampul 50 MCG IV (00:02)
[2020-11-26 00:19] LABS: Procalcitonin 1.12 ng/mL (0.00-0.09)
[2020-11-26 00:34] LABS: Squamous Epithelial Cells - UA 5-10 SEEN /hpf (5-10); White Blood Cells 10-25 SEEN /hpf (0-5)
[2020-11-26 00:35] LABS: Bacteria RARE /hpf (None Seen); Hyaline Cast 0-5 SEEN /lpf (0-5)
[2020-11-26] MEDS: Ondansetron 4 MG/2 ML Vial IV ×2 (01:12→21:13)
[2020-11-26] MEDS: 0.9% Normal Saline 1,000 ML 125 ML IV ×3 (01:12→21:05)
--- NOTE | 2020-11-26 03:11 | PCS.PANDOC ---
PANDEMIC DOCUMENTATION INITIATED: Date: 10/19/2020 Time: 190
[2020-11-26 05:57] LABS: Absolute Lymphocyte Count 2.62 X10^3/uL (0.83-4.51); Absolute Neutrophil Count 9.6 X10^3/uL (2.0-7.7); Basophil# 0.11 X10^3/uL; Basophil% 0.8 % (0-1); Eosinophil# 0.17 X10^3/uL; Eosinophils% 1.2 % (0-5); Hemoglobin 12.9 g/dL (12.0-15.0); Lymphocyte # 2.62 X10^3/ul (0.83-4.51); Lymphocyte % 19.1 % (19-41); Mean Corp Hgb Conc 33.1 g/dL (32-36); Mean Corpuscular Hgb 26.8 pg (27.0-32.0); Mean Corpuscular Volume 80.9 fL (81-99); Mean Platelet Vol. 9.2 fl (6.2-12.0); Monocyte# 1.21 X10^3/uL; Monocyte% 8.8 % (0-10); NRBC Flagged by Analyzer 0 % (0-5); Neutrophil # 9.57 X10^3/uL (2.7-7.7); Neutrophil % 69.6 % (47-70); Platelet Count 211 K/mm3 (150-450); RBC Distribution Width CV 16.3 % (11.6-14.6); RBC Distribution Width SD 47.8 fl (35.1-43.9); Red Blood Count 4.82 M/mm3 (4.2-5.4); White Blood Count 13.8 K/mm3 (4.4-11.0)
[2020-11-26 06:38] LABS: ALB/GLOB Ratio 0.7 RATIO (0.9-2.4); AST(SGOT) 38 U/L (15-37); Alanine Aminotransfer ALT/SGPT 22 U/L (13-56); Albumin, Serum 2.3 g/dL (3.2-5.0); Alkaline Phosphatase 148 U/L (45-117); Anion Gap 7 (5-15); BUN 26 mg/dL (7-18); BUN/Creat Ratio 19.3 RATIO (10-20); Chloride 108 mmol/L (98-107); Creatinine, Serum 1.35 mg/dL (0.55-1.02); EST Glomerular Filtration Rate 43 mL/min (>60); Est Glom Filt Rate - Afr Amer 52 mL/min (>60); Estimated Creatinine Clearance 38.95 ml/min; Globulin 3.3 g/dL (2.2-4.2); Glucose 248 mg/dL (74-106); Potassium 3.3 mmol/L (3.5-5.1); Protein, Total 5.6 g/dL (6.4-8.2); Sodium Level 132 mmol/L (136-145)
[2020-11-26] MEDS: Pregabalin 75 MG Capsule PO ×3 (06:38→21:13)
[2020-11-26] MEDS: Dicyclomine 10 MG Capsule 20 MG PO ×3 (06:38→17:29)
[2020-11-26] MEDS: Sucralfate 1 GM Tablet PO ×4 (06:38→21:16)
[2020-11-26] MEDS: Insulin Lispro 100 UNIT/ML INSULN.PEN SC ×4 (06:39→21:08)
[2020-11-26 07:01] LABS: Bedside Glucose 256 mg/dL (70-110)
[2020-11-26] MEDS: HYDROcodone Bitartrate/Apap 5/325 Tablet PO ×3 (07:31→23:29)
[2020-11-26] MEDS: Ipratropium/Albuterol Sulfate 3 ML AMPUL.NEB INHALATION ×2 (07:35→18:36)
--- NOTE | 2020-11-26 10:40 | CASEMGMT ---
RN ANTONIO DONOR PROCESSOR CM to room to meet with patient for initial transition planning/care coordination assessment. PAMELA ALVAREZ introduced self and role at [facility]. Pt voices understanding and consents to assessment at this time. Pt resting in bed in no distress at this time. Pt is A/O at this time and answers all questions appropriately. Care providers, pharmacy, and demographics verified/updated at this time. PCP: Dr Taylor Specialists: Dr Willoughby--pulmonology; Eric--hematology, for low iron Preferred Pharmacy: [facility] for short term medications. [place] for sourcer. Insurance: [facility] [employer] Prescription Benefit: yes LW/HPOA: Pt has a LW/DPOA on file at [facility]. HPOA is her sister Jessica Payan. LNOK: Jessica Payan (POA), sister. Balbina Tejada, sister, Living Arrangements: Pt lives alone in an apt with elevator to get to her floor and no steps to enter. Pt states she sponge bathes at home but this is difficult at times and could use some assistance w/bathing and w/home tasks. She states her sister, Jessica, does currently assist w/laundry and some housekeeping. Pt states her neighbor, Earl, gets her groceries for her. Pt is interested in Meals on Wheels. Pt manages her own medications and appts, but states forgets to take her meds at times and could use some assistance. Aliya WADE, made aware of above stated needs and states will provide resources. Discussed [facility] w/pt for teaching and med mgmt. Pt states is interested and agreeable to referral. Order placed. TC to Jeb @ [facility] and she was notified of referral. Transportation: Pt states her neighbor, Earl, transports her to medical appts and she denies concerns with transportation. DME: Pt reports she has rollator, knee rover, electric w/c, RTSM shower seat, handrail in the bathroom and O2 at 3L at HS through [employer], nebulizer, and [employer] Harshil glucometer. Pt states she mostly uses her electric w/c and furniture walks. HHC/SNF: Hx of [facility] and [facility] but does not remember name of agency. Pt states she used to have aides through [facility]. Pt wishes to return home and states has no concerns with going home at time of discharge. CM to follow for any further discharge planning/needs. Pt voices no further concerns/needs at this time. Advised pt to ask for CM if any further questions/concerns/needs arise. Voices understanding. PLAN: Home w/family support and discharge plans in place. CCN referral made. SW to meet w/pt for resources. Nyasia BAGLEYN RN CM
[2020-11-26] MEDS: lamoTRIgine 25 MG Tablet PO (12:32)
[2020-11-26] MEDS: Pantoprazole Sodium 40 MG Tablet PO ×2 (12:32→21:17)
[2020-11-26] MEDS: Escitalopram Oxalate 20 MG Tablet PO (12:32)
[2020-11-26] MEDS: Clopidogrel Bisulfate 75 MG Tablet PO (12:32)
[2020-11-26] MEDS: Potassium Chloride Oral Tablet 20 MEQ 40 MEQ PO (12:33)
[2020-11-26] MEDS: APIXABAN 5 MG TABLET PO ×2 (12:33→21:14)
[2020-11-26] MEDS: Fluticasone 0.05% 1 SPRAY NASAL.SRY NASAL ×2 (12:33→21:17)
[2020-11-26] MEDS: busPIRone 15 MG TABLET 30 MG PO ×2 (12:33→21:14)
[2020-11-26] MEDS: Mirabegron 25 MG TAB.ER.24H PO (12:33)
[2020-11-26 12:41] LABS: Pathologist Review Reviewed
[2020-11-26 12:56] LABS: Bedside Glucose 253 mg/dL (70-110)
--- NOTE | 2020-11-26 14:30 | EKG12_ITS ---
Test Reason : Blood Pressure : / mmHG Vent. Rate : 079 BPM Atrial Rate : 079 BPM P-R Int : 136 ms QRS Dur : 088 ms QT Int : 368 ms P-R-T Axes : -10 029 004 degrees QTc Int : 421 ms Sinus rhythm with Premature atrial complexes Low voltage QRS (Limb Leads) Confirmed by LORIE TAFOYA, DESTINY ([id number]), acquisition editor MARTHA SCOTT ([id number]) on 11/30/2020 1:48:07 PM Referred By: SUZI Confirmed By:DESTINY MELO MD
[2020-11-26] MEDS: Menthol/Lanolin/Calamine/Znox 113 GM Tube 1 APPLIC TOPICAL ×2 (15:00→21:17)
[2020-11-26] MEDS: tiZANidine HCl 2 MG Tablet 6 MG PO ×2 (17:30→23:29)
--- NOTE | 2020-11-26 18:23 | PCM.PN.HOSP ---
Subjective Subjective Patient was seen and examined today, she did not have any episodes of diarrhea after the first episode this morning, she states she was not able to provide a stool specimen from the episode of diarrhea early this morning. Since then she has not had any more diarrhea. Patient's creatinine is improved today at 1.35, patient complained of sharp left-sided chest pain while I was in the room talking to her today, she did not appear in any distress, she then asked me if she could have pain medicines for her back because she was lying in bed. I obtained an EKG on the patient which showed a normal sinus rhythm without evidence of ischemic changes. Objective Data Objective Data Vital Signs: Vital Signs Temp Pulse Resp BP Pulse Ox 98.8 F 83 18 127/69 H 96 11/26/20 17:22 11/26/20 17:22 11/26/20 17:22 11/26/20 17:22 11/26/20 17:22 Oxygen Delivery Method Room Air Weight: 98.6 kg Body Mass Index (BMI) 38.4 Intake & Output: Intake and Output for Last 24 Hours 11/24/20 11/25/20 11/26/20 23:59 23:59 23:59 Intake Total 1000 / 1000 4200.00 / 4200.00 Output Total 1150 / 1150 Balance 1000 / 1000 3050.00 / 3050.00 Lab / Micro Data Result Diagrams: 11/26/20 05:44 11/26/20 05:44 Labs: Laboratory Results - last 24 hr 11/25/20 21:20: WBC 18.9 H, RBC 5.72 H, Hgb 15.5 H, Hct 47.4 H, MCV 82.9, MCH 27.1, MCHC 32.7, RDW Std Deviation 49.1 H, RDW Coeff of Kaycee 16.6 H, Plt Count 334, MPV 9.8, Immature Gran % (Auto) 0.700, Neut % (Auto) 77.6 H, Lymph % (Auto) 11.6 L, [place] % (Auto) 8.7, Eos % (Auto) 0.8, Baso % (Auto) 0.6, Absolute Neuts (auto) 14.6 H, Absolute Lymphs (auto) 2.18, Nucleated RBC % 0, Differential Comment SCANNED, Diff Path Review Reviewed 11/25/20 21:20: Sodium 128 L, Potassium 3.7, Chloride 98, Carbon Dioxide 21.0, Anion Gap 9, BUN 33 H, Creatinine 2.20 H, Estim Creat Clear Calc 23.90, Est GFR (MDRD) Af Amer 30 L, Est GFR (MDRD) Non-Af 25 L, BUN/Creatinine Ratio 15.0, Glucose 231 H, Calcium 9.3, Total Bilirubin 0.30, AST 55 H, ALT 30, Alkaline Phosphatase 201 H, Total Protein 6.8, Albumin 3.4, Globulin 3.4, Albumin/Globulin Ratio 1.0 11/25/20 21:20: Phosphorus 4.3, Magnesium 1.8 11/25/20 21:20: Procalcitonin 1.12 H 11/25/20 21:40: Lactic Acid 1.9 11/25/20 21:50: COVID-19 ([place]) Not Detected 11/25/20 22:54: Urine Color Yellow, Urine Clarity Clear, Urine pH 5.0, Ur Specific [place] 1.025, Urine Protein 30 H, Urine Glucose (UA) 100 H, Urine Ketones 5 H, Urine Occult Blood Negative, Urine Nitrite Negative, Urine Bilirubin 1 H, Urine Urobilinogen 4 H, Ur Leukocyte Esterase 100 H, Urine RBC 0 SEEN, Urine WBC 10-25 SEEN, Ur Squamous Epith Cells 5-10 SEEN, Urine Bacteria RARE, Hyaline Casts 0-5 SEEN, Urine Mucus 0 SEEN 11/26/20 05:44: WBC 13.8 H, RBC 4.82, Hgb 12.9, Hct 39.0, MCV 80.9 L, MCH 26.8 L, MCHC 33.1, RDW Std Deviation 47.8 H, RDW Coeff of Kaycee 16.3 H, Plt Count 211, MPV 9.2, Immature Gran % (Auto) 0.500, Neut % (Auto) 69.6, Lymph % (Auto) 19.1, [place] % (Auto) 8.8, Eos % (Auto) 1.2, Baso % (Auto) 0.8, Absolute Neuts (auto) 9.6 H, Absolute Lymphs (auto) 2.62, Nucleated RBC % 0 11/26/20 05:44: Sodium 132 L, Potassium 3.3 L, Chloride 108 H, Carbon Dioxide 17.0 L, Anion Gap 7, BUN 26 H, Creatinine 1.35 H, Estim Creat Clear Calc 38.95, Est GFR (MDRD) Af Amer 52 L, Est GFR (MDRD) Non-Af 43 L, BUN/Creatinine Ratio 19.3, Glucose 248 H, Calcium 8.0 L, Total Bilirubin 0.40, AST 38 H, ALT 22, Alkaline Phosphatase 148 H, Total Protein 5.6 L, Albumin 2.3 L, Globulin 3.3, Albumin/Globulin Ratio 0.7 L 11/26/20 06:24: POC Glucose 256 H 11/26/20 12:27: POC Glucose 253 H Radiography Diagnostic Testing: Radiology Impression Chest X-Ray 11/25/20 21:46 IMPRESSION: No radiographic evidence of acute cardiopulmonary disease. ASSESSMENT: NEGATIVE report - No abnormal findings. Electronically Signed: Pelon Fuller MD at 22:30 EDT Tel , Service support , Physical Exam Const alert, oriented x3 and no apparent distress General Appearance: cooperative, well kempt and well developed Orientation / Consciousness: awake, oriented to person, oriented to place and oriented to time HEENT normocephalic, head/scalp atraumatic and moist oral mucous membranes Head and Scalp: normocephalic Eyes PERRL, EOMs intact bilaterally and conjunctivae normal Neck nuchal rigidity, supple, no JVD, thyroid normal and no carotid bruits General: trachea midline Resp normal respiratory effort, no retractions, no use of accessory muscles and clear to auscultation bilaterally Auscultation: Negative for rales, rhonchi or wheezes Cardio regular rate, regular rhythm, S1 normal heart sound, S2 normal heart sound, no murmurs, no rub and no gallops GI normal to inspection, nondistended, normoactive bowel sounds, soft to palpation, non-tender and non-distended Extremity no clubbing, cyanosis or edema Skin no rashes or lesions noted General Skin Exam: no breakdown Neuro oriented x3, CN's II-XII intact bilaterally, no focal motor deficits and no sensory deficits noted Sensorium / Orientation: awake and alert Speech: speech normal Psych thought process normal and affect normal Assessment & Plan Assessment/Plan (1) Diarrhea: PLAN: 1. Acute gastroenteritis-probably viral in nature, continue supportive care #2 acute kidney injury-continue IV fluid administration, recheck labs tomorrow #3 musculoskeletal chest pain #4 schizoaffective disorder #5 hypokalemia-patient was given potassium supplement today #6 type 2 diabetes-continue to monitor blood sugars #7 chronic obstructive pulmonary disease Charges/Coding Visit Charges Inpatient E&M: 33482 Subs Hosp L2
[2020-11-26] MEDS: proCHLORPERazine 10 MG/2 ML Vial 5 MG IV (19:32)
[2020-11-26] MEDS: 0.9% Saline Lock 10 ML Syringe IV ×2 (19:33→21:13)
[2020-11-26] MEDS: Acetaminophen 325 MG Tablet 650 MG PO (19:44)
[2020-11-26 19:56] LABS: Bedside Glucose 239 mg/dL (70-110)
[2020-11-26] MEDS: RisperiDONE 2 MG Tablet 4 MG PO (21:13)
[2020-11-26] MEDS: Atorvastatin Calcium 80 MG Tablet PO (21:14)
[2020-11-26] MEDS: traZODone 100 MG Tablet 200 MG PO (21:15)
[2020-11-26] MEDS: Montelukast 10 MG Tablet PO (21:16)
[2020-11-26 21:30] LABS: Bedside Glucose 172 mg/dL (70-110)
[2020-11-27] VITALS (10 sets, daily range): BP systolic 116–147; BP diastolic 55–78; PULSE 67–88; RESP 15–22; TEMP 36–36.8; O2SAT 96–98
--- NOTE | 2020-11-27 01:56 | CPS ---
Pt doesn't wear bipap at home and does not want to wear it here.
[2020-11-27] MEDS: Ipratropium/Albuterol Sulfate 3 ML AMPUL.NEB INHALATION ×3 (03:37→13:13)
[2020-11-27] MEDS: Dicyclomine 10 MG Capsule 20 MG PO ×2 (05:12→11:42)
[2020-11-27] MEDS: HYDROcodone Bitartrate/Apap 5/325 Tablet PO ×2 (05:12→11:42)
[2020-11-27] MEDS: Pregabalin 75 MG Capsule PO (05:12)
[2020-11-27] MEDS: Menthol/Lanolin/Calamine/Znox 113 GM Tube 1 APPLIC TOPICAL (05:13)
[2020-11-27] MEDS: Insulin Lispro 100 UNIT/ML INSULN.PEN SC ×2 (05:14→11:42)
[2020-11-27] MEDS: Sucralfate 1 GM Tablet PO ×2 (05:14→11:41)
[2020-11-27] MEDS: 0.9% Normal Saline 1,000 ML 125 ML IV (05:32)
[2020-11-27 06:27] LABS: Anion Gap 3 (5-15); BUN 10 mg/dL (7-18); BUN/Creat Ratio 13.3 RATIO (10-20); Chloride 113 mmol/L (98-107); Creatinine, Serum 0.75 mg/dL (0.55-1.02); EST Glomerular Filtration Rate 85 mL/min (>60); Est Glom Filt Rate - Afr Amer 103 mL/min (>60); Estimated Creatinine Clearance 70.11 ml/min; Glucose 193 mg/dL (74-106); Sodium Level 137 mmol/L (136-145)
[2020-11-27 06:41] LABS: Bedside Glucose 183 mg/dL (70-110)
[2020-11-27] MEDS: tiZANidine HCl 2 MG Tablet 6 MG PO (08:30)
[2020-11-27] MEDS: Clopidogrel Bisulfate 75 MG Tablet PO (08:31)
[2020-11-27] MEDS: busPIRone 15 MG TABLET 30 MG PO (08:31)
[2020-11-27] MEDS: APIXABAN 5 MG TABLET PO (08:31)
[2020-11-27] MEDS: Potassium Chloride Oral Tablet 20 MEQ 40 MEQ PO (08:31)
[2020-11-27] MEDS: lamoTRIgine 25 MG Tablet PO (08:31)
[2020-11-27] MEDS: Mirabegron 25 MG TAB.ER.24H PO (08:31)
[2020-11-27] MEDS: Escitalopram Oxalate 20 MG Tablet PO (08:31)
[2020-11-27] MEDS: Pantoprazole Sodium 40 MG Tablet PO (08:31)
[2020-11-27] MEDS: Fluticasone 0.05% 1 SPRAY NASAL.SRY NASAL (08:33)
--- NOTE | 2020-11-27 09:42 | DCINST_ITS ---
Discharge Instructions Diet Discharge Diet: 1800 Calorie Control Diet Activity Discharge Activity: Return to Normal Activity Weight Bearing Status: Full weight bearing Follow Up Care Test Results: Test results from this visit will be discussed in further detail at your follow-up appointment, if applicable. Discharge Plan Admission Admit Date/Time: 11/25/20 23:18 Primary Reason for Your Visit: gastroenteritis, kidney injury Attending Provider: Justin He Primary Care Provider: Janel Taylor Discharge Orders/Prescriptions Prescriptions: New vancomycin 125 mg capsule 125 mg PO Q6H 7 Days Qty: 28 RF: 0 Continued sucralfate 1 gram tablet 1 g PO QACHS RF: 0 atorvastatin 80 MG tablet 80 mg PO QHS RF: 0 nitroglycerin 0.4 MG tablet, sublingual 0.4 mg SL PRN PRN (Reason: Cardiac/Chest Pain) RF: 0 risperidone 4 mg tablet 4 mg PO QHS RF: 0 trazodone 100 MG tablet 200 mg PO QHS RF: 0 pregabalin 75 MG capsule 75 mg PO TID RF: 0 tizanidine 4 MG tablet 6 mg PO TID PRN PRN (Reason: Spasms) RF: 0 buspirone 30 mg tablet 30 mg PO BID RF: 0 furosemide 20 MG tablet 20 mg PO DAILY RF: 0 mirabegron 25 MG tablet extended release 24 hr 25 mg PO DAILY RF: 0 lisinopril 20 MG tablet 20 mg PO QHS RF: 0 apixaban 5 MG tablet 5 mg PO BID RF: 0 acidophilus-pectin, citrus 1 TABLET tablet 2 tab PO BID RF: 0 insulin glargine 100 UNITS/ML insulin pen 40 units SC BID RF: 0 dicyclomine 10 MG capsule 20 mg PO TIDAC Qty: 10 RF: 0 metoclopramide HCl 10 MG tablet 10 mg PO 4X/DAY PRN (Reason: Headache) Qty: 20 RF: 0 clopidogrel 75 mg tablet 75 mg PO DAILY RF: 0 insulin lispro [Humalog KwikPen Insulin] 100 unit/mL Insulin Pen 10 unit subcut TIDAC Qty: 0 RF: 0 sennosides-docusate sodium [Stool Softener-Stimulant Laxat] 8.6-50 mg Tablet 2 tab PO BID PRN PRN (Reason: Constipation) Qty: 0 RF: 0 hydrocodone-acetaminophen 5-300 mg Tablet 1 tab PO Q6H PRN PRN (Reason: Pain) RF: 0 potassium chloride [K-Tab] 20 mEq tablet extended release 40 meq PO DAILY Qty: 60 RF: 0 lamotrigine 25 mg Tablet 25 mg PO DAILY RF: 0 promethazine 25 mg Tablet 25 mg PO BID PRN PRN (Reason: Nausea) RF: 0 escitalopram oxalate 20 mg Tablet 20 mg PO DAILY RF: 0 Advair HFA 230-21 mcg/actuation Hfa Aerosol Inhaler 2 puff INHALATION BID RF: 0 albuterol sulfate 1 PUFF HFA aerosol inhaler 2 puff IH Q4H PRN PRN (Reason: SOB &/or Wheezing ) RF: 0 loperamide [Imodium A-D] 2 mg Capsule 2 mg PO Q6H PRN (Reason: Diarrhea) RF: 0 pantoprazole 40 mg Tablet,Delayed Release (Dr/Ec) 40 mg PO BID RF: 0 fluticasone propionate 50 mcg/actuation [place],Suspension 1 spray INTRANASAL BID RF: 0 amlodipine 2.5 mg tablet 10 mg PO DAILY RF: 0 metoprolol succinate 25 mg tablet extended release 24 hr 50 mg PO DAILY RF: 0 tiotropium bromide 2.5 mcg/actuation mist 2 puff INHALATION DAILY Qty: 4 RF: 3 montelukast 10 mg tablet 10 mg PO QHS Qty: 30 RF: 5 Discontinued prednisone 20 mg tablet 40 mg PO DAILY Qty: 8 RF: 0 Referrals / Follow Up: Janel Taylor MD [Primary Care Provider] - Disposition Disposition (needs filled in before D/C Order can be placed): Home, Self Care
--- NOTE | 2020-11-27 10:07 | CASEMGMT ---
Addendum entered by Bianca Pandey 11/27/20 10:15: Ref# [id number] Original Note: Pt to be sent home on po vancomycin at discharge and med e-scribed to [facility] retail pharmacy. Per Mar in pharmacy, vanc needs a prior auth. PA number . Call to [facility] and after Cdiff dx given then prior auth approved at this time. [facility] retail pharmacy aware. Nereida SANTIAGO CM
--- NOTE | 2020-11-27 10:47 | CASEMGMT ---
SW spoke with patient. Introduced self and role at [facility]. SW provided her with information on local meal sites and meals on wheels. SW also told her about waiver program and that SW could make a referral. She would like SW to make a referral. SW told her they will try and get in touch with her at some point. SW then made a referral to [facility] for waiver program. Aliya STUBBS
--- NOTE | 2020-11-27 11:11 | PHA.DC.MR ---
Pharmacy Service has performed discharge medication reconciliation for this patient. Home Medications atorvastatin 80 mg PO QHS 08/22/15 nitroglycerin 0.4 mg SL PRN PRN 11/08/16 pregabalin 75 mg PO TID 03/08/18 risperidone 4 mg PO QHS 03/08/18 tizanidine 6 mg PO TID PRN PRN 03/08/18 trazodone 200 mg PO QHS 03/08/18 furosemide 20 mg PO DAILY 11/20/18 lisinopril 20 mg PO QHS 11/20/18 mirabegron 25 mg PO DAILY 11/20/18 apixaban 5 mg PO BID 05/02/19 buspirone 30 mg tablet 30 mg PO BID tab 06/27/19 sucralfate 1 gram tablet 1 g PO QACHS 06/27/19 tiotropium bromide 2.5 mcg/actuation mist for inhalation 2 puff INHALATION DAILY #4 g 09/30/19 montelukast 10 mg tablet 10 mg PO QHS #30 tab 10/30/19 acidophilus-pectin, citrus 2 tab PO BID 12/16/19 insulin glargine 40 units SC BID 12/18/19 dicyclomine 20 mg PO TIDAC #10 cap 03/16/20 metoclopramide HCl 10 mg PO 4X/DAY PRN #20 tab 03/16/20 clopidogrel 75 mg PO DAILY 07/31/20 insulin lispro [Humalog KwikPen Insulin] 10 unit SUBCUT TIDAC #0 ml 08/11/20 sennosides-docusate sodium [Stool Softener-Stimulant Laxat] 2 tab PO BID PRN PRN #0 tab 08/11/20 hydrocodone-acetaminophen 1 tab PO Q6H PRN PRN 10/03/20 potassium chloride [K-Tab] 40 meq PO DAILY #60 tab 10/05/20 Advair HFA 2 puff INHALATION BID 11/14/20 albuterol sulfate 2 puff IH Q4H PRN PRN 11/14/20 amlodipine 10 mg PO DAILY 11/14/20 escitalopram oxalate 20 mg PO DAILY 11/14/20 fluticasone propionate 1 spray INTRANASAL BID 11/14/20 lamotrigine 25 mg PO DAILY 11/14/20 loperamide [Imodium A-D] 2 mg PO Q6H PRN 11/14/20 metoprolol succinate 50 mg PO DAILY 11/14/20 pantoprazole 40 mg PO BID 11/14/20 promethazine 25 mg PO BID PRN PRN 11/14/20 vancomycin 125 mg PO Q6H 7 Days #28 cap 11/27/20 The patient's discharge medication list was reviewed for discrepancies and discrepancies were resolved.
[2020-11-27 12:55] LABS: Bedside Glucose 237 mg/dL (70-110)
--- NOTE | 2020-11-27 15:09 | NURSING ---
Read and reviewed SN documentation. Reviewed Plan of care with SN
--- NOTE | 2020-11-30 14:47 | CASEMGMT ---
PAMELA ALVAREZ Discharge F/U Phone Call LACE: 14 Strata: 4 Discharge date: 11/27/20 Call date: 11/30/20 Call time: [id number] Attempted to reach pt without success and unable to leave a message at this time. SStaten RN CM Admission dx: ZUHAIR, gastroenteritis, hypotension
--- NOTE | 2020-12-03 15:16 | PCM.DC.SUM ---
Providers Date of Admission: 11/25/20 Date of Discharge: 11/27/20 Primary Care Physician: Dr. Janel Taylor MD Reason For Visit: ZUHAIR, GASSTROENTERITIS,HYPOTENSION Diagnosis Discharge Diagnosis (1) Diarrhea: Status: Acute Code(s): R19.7 - Diarrhea, unspecified Plan: 1. Acute gastroenteritis-probably viral in nature #2 acute kidney injury-secondary to diarrhea #3 musculoskeletal chest pain #4 schizoaffective disorder #5 hypokalemia secondary to diarrhea #6 type 2 diabetes #7 chronic obstructive pulmonary disease #8 hyponatremia-secondary to diarrhea Medications at Discharge Home Medications atorvastatin 80 mg PO QHS 08/22/15 nitroglycerin 0.4 mg SL PRN PRN 11/08/16 pregabalin 75 mg PO TID 03/08/18 risperidone 4 mg PO QHS 03/08/18 tizanidine 6 mg PO TID PRN PRN 03/08/18 trazodone 200 mg PO QHS 03/08/18 furosemide 20 mg PO DAILY 11/20/18 lisinopril 20 mg PO QHS 11/20/18 mirabegron 25 mg PO DAILY 11/20/18 apixaban 5 mg PO BID 05/02/19 buspirone 30 mg tablet 30 mg PO BID tab 06/27/19 sucralfate 1 gram tablet 1 g PO QACHS 06/27/19 tiotropium bromide 2.5 mcg/actuation mist for inhalation 2 puff INHALATION DAILY #4 g 09/30/19 montelukast 10 mg tablet 10 mg PO QHS #30 tab 10/30/19 acidophilus-pectin, citrus 2 tab PO BID 12/16/19 insulin glargine 40 units SC BID 12/18/19 dicyclomine 20 mg PO TIDAC #10 cap 03/16/20 metoclopramide HCl 10 mg PO 4X/DAY PRN #20 tab 03/16/20 clopidogrel 75 mg PO DAILY 07/31/20 insulin lispro [Humalog KwikPen Insulin] 10 unit SUBCUT TIDAC #0 ml 08/11/20 sennosides-docusate sodium [Stool Softener-Stimulant Laxat] 2 tab PO BID PRN PRN #0 tab 08/11/20 hydrocodone-acetaminophen 1 tab PO Q6H PRN PRN 10/03/20 potassium chloride [K-Tab] 40 meq PO DAILY #60 tab 10/05/20 Advair HFA 2 puff INHALATION BID 11/14/20 albuterol sulfate 2 puff IH Q4H PRN PRN 11/14/20 amlodipine 10 mg PO DAILY 11/14/20 escitalopram oxalate 20 mg PO DAILY 11/14/20 fluticasone propionate 1 spray INTRANASAL BID 11/14/20 lamotrigine 25 mg PO DAILY 11/14/20 loperamide [Imodium A-D] 2 mg PO Q6H PRN 11/14/20 metoprolol succinate 50 mg PO DAILY 11/14/20 pantoprazole 40 mg PO BID 11/14/20 promethazine 25 mg PO BID PRN PRN 11/14/20 vancomycin 125 mg PO Q6H 7 Days #28 cap 11/27/20 hydrocodone-acetaminophen 1 tab PO Q6H PRN 3 Days #12 tab 12/02/20 ondansetron 4 mg PO Q6H PRN #10 tab 12/02/20 Hospital Course Operations None Procedures None Summary of Care Provided Minutes Spent on Discharge: 31 Hospital Course: This 55-year-old white female was seen in the emergency room at [facility] complaining of vomiting and diarrhea. Patient felt lightheaded and dizzy, labs obtained in the emergency room revealed an elevated white blood cell count, chemistry panel was remarkable for a sodium of 128, potassium of 3.7, creatinine of 2.2, BUN 33. Patient also had hypotension in the emergency room. Patient was admitted to PCU, given IV fluids, and labs were monitored. Stool studies resulted negative for C. difficile toxin-however patient C. difficile antigen was positive. Her enteric pathogen panel was negative. Patient symptoms resolved during her hospital stay. On 11/27/2020, patient was seen and examined: On examination she appeared in good health and spirits, she does not appear to be in any distress. Vital signs as documented. Skin warm and dry and without overt rashes. Neck without JVD, thyroid appears normal, trachea is midline, neck is supple. Lungs clear, normal air movement was noted. Heart exam notable for regular rhythm, normal sounds and absence of murmurs, rubs or gallops. Abdomen unremarkable and without evidence of organomegaly, masses, or abdominal aortic enlargement, bowel sounds are present in all 4 quadrants, no abdominal tenderness was noted. Extremities nonedematous, no cyanosis was noted, no clubbing was noted. Neuro: Cranial nerves II through XII are grossly intact, no focal motor deficits were noted, sensation to light touch and pinprick is intact, motor exam 5/5 throughout. Psych: Patient is alert and oriented x3, she does not appear anxious or depressed, she does not appear agitated. Patient appears stable for discharge on 11/27/2020, this examiner elected to place her on a short course of oral vancomycin at the time of discharge. Weight / BMI Weight Weight: 98.6 kg Body Mass Index (BMI) 38.4 ABG / Lab / Microbiology Data Result Diagrams: 11/26/20 05:44 11/27/20 05:42 Microbiology: Microbiology 11/25/20 15:45 Stool Enteric Bacteriology - Final 11/25/20 15:45 Stool C. difficile GDH Antigen & Toxins - Final 11/25/20 15:45 Stool C. difficile DNA Amplification - Final D/C Instructions Discharge Diet: 1800 Calorie Control Diet Weight Bearing Status: Full weight bearing Meaningful Use Info Meaningful Use Diagnoses (Choose all that apply): None applicable Discharge Plan Admission Admit Date/Time: 11/25/20 23:18 Primary Reason for Your Visit: gastroenteritis, kidney injury Attending Provider: Justin He Primary Care Provider: Janel Taylor Instructions Additional Instructions / Restrictions: Patient Problems: Altered Health Status related to Hospitalization Patient Goals: *Optimal Level of Health *Keep Appointments *Medication Compliance *Remain Safe Discharge Orders/Prescriptions Prescriptions: New vancomycin 125 mg capsule 125 mg PO Q6H 7 Days Qty: 28 RF: 0 Continued sucralfate 1 gram tablet 1 g PO QACHS RF: 0 atorvastatin 80 MG tablet 80 mg PO QHS RF: 0 nitroglycerin 0.4 MG tablet, sublingual 0.4 mg SL PRN PRN (Reason: Cardiac/Chest Pain) RF: 0 risperidone 4 mg tablet 4 mg PO QHS RF: 0 trazodone 100 MG tablet 200 mg PO QHS RF: 0 pregabalin 75 MG capsule 75 mg PO TID RF: 0 tizanidine 4 MG tablet 6 mg PO TID PRN PRN (Reason: Spasms) RF: 0 buspirone 30 mg tablet 30 mg PO BID RF: 0 furosemide 20 MG tablet 20 mg PO DAILY RF: 0 mirabegron 25 MG tablet extended release 24 hr 25 mg PO DAILY RF: 0 lisinopril 20 MG tablet 20 mg PO QHS RF: 0 apixaban 5 MG tablet 5 mg PO BID RF: 0 acidophilus-pectin, citrus 1 TABLET tablet 2 tab PO BID RF: 0 insulin glargine 100 UNITS/ML insulin pen 40 units SC BID RF: 0 dicyclomine 10 MG capsule 20 mg PO TIDAC Qty: 10 RF: 0 metoclopramide HCl 10 MG tablet 10 mg PO 4X/DAY PRN (Reason: Headache) Qty: 20 RF: 0 clopidogrel 75 mg tablet 75 mg PO DAILY RF: 0 insulin lispro [Humalog KwikPen Insulin] 100 unit/mL Insulin Pen 10 unit subcut TIDAC Qty: 0 RF: 0 sennosides-docusate sodium [Stool Softener-Stimulant Laxat] 8.6-50 mg Tablet 2 tab PO BID PRN PRN (Reason: Constipation) Qty: 0 RF: 0 hydrocodone-acetaminophen 5-300 mg Tablet 1 tab PO Q6H PRN PRN (Reason: Pain) RF: 0 potassium chloride [K-Tab] 20 mEq tablet extended release 40 meq PO DAILY Qty: 60 RF: 0 lamotrigine 25 mg Tablet 25 mg PO DAILY RF: 0 promethazine 25 mg Tablet 25 mg PO BID PRN PRN (Reason: Nausea) RF: 0 escitalopram oxalate 20 mg Tablet 20 mg PO DAILY RF: 0 Advair HFA 230-21 mcg/actuation Hfa Aerosol Inhaler 2 puff INHALATION BID RF: 0 albuterol sulfate 1 PUFF HFA aerosol inhaler 2 puff IH Q4H PRN PRN (Reason: SOB &/or Wheezing ) RF: 0 loperamide [Imodium A-D] 2 mg Capsule 2 mg PO Q6H PRN (Reason: Diarrhea) RF: 0 pantoprazole 40 mg Tablet,Delayed Release (Dr/Ec) 40 mg PO BID RF: 0 fluticasone propionate 50 mcg/actuation Claude,Suspension 1 spray INTRANASAL BID RF: 0 amlodipine 2.5 mg tablet 10 mg PO DAILY RF: 0 metoprolol succinate 25 mg tablet extended release 24 hr 50 mg PO DAILY RF: 0 tiotropium bromide 2.5 mcg/actuation mist 2 puff INHALATION DAILY Qty: 4 RF: 3 montelukast 10 mg tablet 10 mg PO QHS Qty: 30 RF: 5 Discontinued prednisone 20 mg tablet 40 mg PO DAILY Qty: 8 RF: 0 No Action hydrocodone-acetaminophen 5-325 mg tablet 1 tab PO Q6H PRN (Reason: pain) 3 Days Qty: 12 RF: 0 ondansetron 4 mg tablet,disintegrating 4 mg PO Q6H PRN (Reason: nausea and vomiting) Qty: 10 RF: 0 Referrals / Follow Up: Janel Taylor MD [Primary Care Provider] - 12/03/20 10:40 am (This is a telephone visit- office will call you-December 03 at 1040.) Disposition Disposition (needs filled in before D/C Order can be placed): Home, Self Care Charges/Coding Visit Charges Inpatient E&M: 64147 Disch Hosp
--- NOTE | 2020-12-08 10:58 | CCN.REFER ---
CCN REFERRAL MULTIPLE VOICEMAILS LEFT WITH NO RETURNED CALL. PATIENT USE TO BE ACTIVE WITH CCN. CCN HAD TO DISCHARGE BC SHE CEASED COMMUNICATION W/ CCN STAFF.
== END 2020-11-27 14:02 | disposition home or self-care (01) | DRG 683 ==
LOC: ED 23:42 → PCU 11-26 08:03
PROVIDERS: Admitting Provider Family Medicine; Emergency Provider Emergency Medicine; PCP Family Medicine; Visit Provider Internal Medicine
DX: N17.9 Acute kidney failure, unspecified (principal); Z68.42 Body mass index [BMI] 45.0-49.9, adult; E87.1 Hypo-osmolality and hyponatremia; A08.4 Viral intestinal infection, unspecified; E86.0 Dehydration; I95.9 Hypotension, unspecified; R07.89 Other chest pain; E87.6 Hypokalemia; Z20.822 Contact with and (suspected) exposure to COVID-19; J43.9 Emphysema, unspecified; I25.10 Atherosclerotic heart disease of native coronary artery without angina pectoris; I10 Essential (primary) hypertension; E11.9 Type 2 diabetes mellitus without complications; D50.9 Iron deficiency anemia, unspecified; E78.5 Hyperlipidemia, unspecified; G89.29 Other chronic pain; K21.9 Gastro-esophageal reflux disease without esophagitis; G47.33 Obstructive sleep apnea (adult) (pediatric); E66.01 Morbid (severe) obesity due to excess calories; F25.9 Schizoaffective disorder, unspecified; F17.210 Nicotine dependence, cigarettes, uncomplicated; Z99.81 Dependence on supplemental oxygen; Z79.891 Long term (current) use of opiate analgesic; Z79.01 Long term (current) use of anticoagulants; Z79.02 Long term (current) use of antithrombotics/antiplatelets; Z79.4 Long term (current) use of insulin; Z79.899 Other long term (current) drug therapy; I25.2 Old myocardial infarction; Z86.711 Personal history of pulmonary embolism; Z87.11 Personal history of peptic ulcer disease; Z95.5 Presence of coronary angioplasty implant and graft; Z98.84 Bariatric surgery status
CPT/HCPCS: 36415; 71045; 80048; 80053; 81001; 82962; 83605; 83735; 84100; 84145; 85025; 87493; 87506; 87635; 93005; 94640; 99285; 99406; J7030; J7040; U0005; A4216; J2405; U0003

== ENCOUNTER 2020-12-02 12:48 | Emergency (ER) | payer MEDICARE, MEDICAID, SELFPAY ==
[2020-12-02 12:49] VITALS: BP 120/78; PULSE 85; RESP 16; TEMP 37; O2SAT 98; BMI 41.3
--- NOTE | 2020-12-02 13:30 | CT_ITS ---
STUDY: CT ABDOMEN AND PELVIS WITHOUT CONTRAST REASON FOR EXAM: Female, 55 years old. LLQ pain, recent c-diff, diarrhea RADIATION DOSAGE (If Supplied By Facility): CTDIvol = ( 21.45 ) mGy, DLP = ( 1131.53 ) mGycm TECHNIQUE: Transaxial images were obtained from the dome of the diaphragm to the symphysis pubis without oral contrast, and without intravenous contrast. Sagittal and coronal images were reconstructed. Individualized dose optimization techniques were used for this CT. COMPARISON: Comparison is made with prior examination dated 10/03/2020. FINDINGS: The visualized lung bases are unremarkable. Coronary artery calcifications are seen. Normal liver. The patient is status post cholecystectomy. Normal spleen. Normal pancreas. Normal bilateral adrenal glands. Normal right kidney. Normal left kidney. There is a small hiatal hernia. The patient is status post subtotal gastrectomy. Normal small intestine. There are scattered colonic diverticula consistent with diverticulosis. There are surgical clips in the region of the appendix consistent with a prior appendectomy. There is diffuse atherosclerotic calcification of the abdominal aorta and its major visceral branches, without a demonstrated aneurysm. Normal inferior vena cava. Normal retroperitoneum. Normal urinary bladder. There is evidence of prior anterior abdominal ventral hernia repair with a mesh. There are diffuse degenerative changes of the visualized lumbar spine. The patient is status post right total hip replacement. CT/Abdomen/Pelvis without Cont IMPRESSION: Scattered sigmoid diverticula. Prior anterior abdominal wall hernia repair with a mesh. Electronically Signed: Manuelito Silva MD at 14:13 EDT , Service support ,
[2020-12-02 13:34] LABS: Absolute Neutrophil Count 6.1 X10^3/uL (2.0-7.7); Basophil% 1.1 % (0-1); Eosinophils% 2.2 % (0-5); Hematocrit 41.2 % (37-47); Hemoglobin 13.3 g/dL (12.0-15.0); Lymphocyte % 20.9 % (19-41); Mean Corp Hgb Conc 32.3 g/dL (32-36); Mean Corpuscular Hgb 26.8 pg (27.0-32.0); Mean Corpuscular Volume 83.1 fL (81-99); Mean Platelet Vol. 9.5 fl (6.2-12.0); Monocyte# 0.74 X10^3/uL; Monocyte% 8.2 % (0-10); NRBC Flagged by Analyzer 0 % (0-5); Neutrophil % 67.3 % (47-70); Platelet Count 275 K/mm3 (150-450); RBC Distribution Width CV 17.2 % (11.6-14.6); RBC Distribution Width SD 51.3 fl (35.1-43.9); Red Blood Count 4.96 M/mm3 (4.2-5.4); White Blood Count 9.1 K/mm3 (4.4-11.0)
[2020-12-02] MEDS: 0.9% Normal Saline 1,000 ML 1000 ML IV (13:36)
[2020-12-02] MEDS: Ondansetron 4 MG/2 ML Vial IV (13:36)
[2020-12-02] MEDS: HYDROmorphone 1 MG/ML Syringe IV (13:37)
--- NOTE | 2020-12-02 13:45 | EDS_ITS ---
HPI HPI - GI History of Present Illness Chief Complaint: Abd Pain Informant: patient Narrative Narrative: Presents with recurrent abdominal pain vomiting diarrhea for the past 3 days. Patient discharged from hospital 5 days ago after 2-day stay for similar. She states C. difficile colitis stating she was sent home on a Z-Cody, however from records she was sent home on vancomycin for 7 days. She was on antibiotics prior to that. Her C. difficile antigen was positive. States vomiting started approximately 6 episodes last 1 was yesterday. No bloody stools. History of appendectomy, cholecystectomy, gastric bypass surgery. Denies any urinary symptoms. Prior similar symptoms: Yes PFSH PFSH Medical History Anemia Asthma Benign essential hypertension Bleeding tendency Chest pain Chronic cough Chronic narcotic use COPD (chronic obstructive pulmonary disease) Current use of insulin Delayed surgical wound healing Diabetes Emphysema of lung Gastroesophageal reflux disease High cholesterol Hip osteoarthritis History of pulmonary embolism History of stress test Hypertension Irregular heart beat Irritable bowel Morbid obesity with BMI of 45.0-49.9, adult Myocardial infarct On home oxygen therapy RACHEL (obstructive sleep apnea) Pancreatitis Peptic ulcer Schizoaffective disorder Sleep apnea Smoker Spinal stenosis of lumbar region at multiple levels Thyroid nodule Tobacco abuse Ulcer Vitamin D deficiency Home Medications atorvastatin 80 mg PO QHS 08/22/15 [History Last Taken 12/17/19 22:26] nitroglycerin 0.4 mg SL PRN PRN 11/08/16 [History Last Taken 11/01/17 0.4 MG] pregabalin 75 mg PO TID 03/08/18 [History Last Taken 12/18/19 14:40] risperidone 4 mg PO QHS 03/08/18 [History Last Taken 12/17/19 22:27] tizanidine 6 mg PO TID PRN PRN 03/08/18 [History Last Taken 12/18/19 14:37] trazodone 200 mg PO QHS 03/08/18 [History Last Taken 12/17/19 22:26] furosemide 20 mg PO DAILY 11/20/18 [History Last Taken 12/16/19] lisinopril 20 mg PO QHS 11/20/18 [History Last Taken 12/17/19 22:26] mirabegron 25 mg PO DAILY 11/20/18 [History Last Taken 12/18/19 08:47] apixaban 5 mg PO BID 05/02/19 [History Last Taken 12/18/19 10:22] buspirone 30 mg tablet 30 mg PO BID tab 06/27/19 [History Last Taken 12/18/19 08:46] sucralfate 1 gram tablet 1 g PO QACHS 06/27/19 [History Last Taken 12/18/19 16:13] tiotropium bromide 2.5 mcg/actuation mist for inhalation 2 puff INHALATION DAILY #4 g 09/30/19 [Rx Last Taken 12/18/19 13:02] montelukast 10 mg tablet 10 mg PO QHS #30 tab 10/30/19 [Rx Last Taken 12/17/19 22:26] acidophilus-pectin, citrus 2 tab PO BID 12/16/19 [History Last Taken 12/18/19 10:25] insulin glargine 40 units SC BID 12/18/19 [History Last Taken 12/18/19 10:25] dicyclomine 20 mg PO TIDAC #10 cap 03/16/20 [Rx Last Taken Unknown] metoclopramide HCl 10 mg PO 4X/DAY PRN #20 tab 03/16/20 [Rx Last Taken Unknown] clopidogrel 75 mg PO DAILY 07/31/20 [History Last Taken Unknown] insulin lispro [Humalog KwikPen Insulin] 10 unit SUBCUT TIDAC #0 ml 08/11/20 [Rx Last Taken Unknown] sennosides-docusate sodium [Stool Softener-Stimulant Laxat] 2 tab PO BID PRN PRN #0 tab 08/11/20 [Rx Last Taken Unknown] hydrocodone-acetaminophen 1 tab PO Q6H PRN PRN 10/03/20 [History Last Taken Unknown] potassium chloride [K-Tab] 40 meq PO DAILY #60 tab 10/05/20 [Rx Last Taken Unknown] Advair HFA 2 puff INHALATION BID 11/14/20 [History Last Taken Unknown] albuterol sulfate 2 puff IH Q4H PRN PRN 11/14/20 [History Last Taken Unknown] amlodipine 10 mg PO DAILY 11/14/20 [History Last Taken Unknown] escitalopram oxalate 20 mg PO DAILY 11/14/20 [History Last Taken Unknown] fluticasone propionate 1 spray INTRANASAL BID 11/14/20 [History Last Taken Unknown] lamotrigine 25 mg PO DAILY 11/14/20 [History Last Taken Unknown] loperamide [Imodium A-D] 2 mg PO Q6H PRN 11/14/20 [History Last Taken Unknown] metoprolol succinate 50 mg PO DAILY 11/14/20 [History Last Taken Unknown] pantoprazole 40 mg PO BID 11/14/20 [History Last Taken Unknown] promethazine 25 mg PO BID PRN PRN 11/14/20 [History Last Taken Unknown] vancomycin 125 mg PO Q6H 7 Days #28 cap 11/27/20 [Rx Last Taken Unknown] hydrocodone-acetaminophen 1 tab PO Q6H PRN 3 Days #12 tab 12/02/20 [Rx Last Taken Unknown] ondansetron 4 mg PO Q6H PRN #10 tab 12/02/20 [Rx Last Taken Unknown] Allergy/AdvReac Type Severity Reaction Status Date / Time amoxicillin Allergy Itching Verified 12/02/20 12:51 erythromycin base Allergy Unknown Verified 12/02/20 12:51 methadone Allergy Itching Verified 12/02/20 12:51 metolazone Allergy Unknown Verified 12/02/20 12:51 Penicillins Allergy Hives Verified 12/02/20 12:51 Sulfa (Sulfonamide Allergy Hives Verified 12/02/20 12:51 Antibiotics) clarithromycin [From Biaxin] AdvReac Nausea Verified 12/02/20 12:51 ibuprofen AdvReac 3 BLEEDING Verified 12/02/20 12:51 ULCERS morphine AdvReac HEADACHE Verified 12/02/20 12:51 oxycodone [From Percocet] AdvReac Itching Verified 12/02/20 12:51 Family History Mother Heart disease Cancer ovarian Father Hypertension Arthritis Hyperlipemia Grandmother Breast cancer Heart disease Grandfather Heart disease Surgical History H/O cardiac catheterization H/O heart artery stent History of appendectomy history of carpal tunnel release left wrist History of carpal tunnel surgery of left wrist History of cholecystectomy History of gastric bypass History of PTCA History of right ankle surgery history of right hip surgery History of tonsillectomy Social History household members: none Smoking Status: Current every day smoker tobacco type: cigarettes Tobacco: How many years used: 39 alcohol intake: never substance use type: does not use caffeine: No what type of physical activity do you participate in: none ROS ROS ED Constitutional Constitutional ED: Denies chills, fever(s) or sweats Eyes Eyes: Denies change in vision ENT ENT ED: Denies dysphagia or sore throat Cardiovascular Cardiovascular: Denies chest pain, leg edema, palpitations or racing heartbeat Respiratory/Chest Respiratory/Chest: Denies cough, dyspnea or dyspnea on exertion Gastrointestinal Gastrointestinal: Reports abdominal pain, diarrhea, nausea and vomiting Genitourinary Genitourinary ED: Denies dysuria, hematuria or urinary frequency Musculoskeletal Musculoskeletal: Denies back pain, extremity pain or neck pain Integumentary Denies rash or wounds Neurologic Neurologic: Denies headache(s), paresthesias or weakness EXAM Physical Exam Const Vital Signs: 12/02/20 12:49 12/02/20 15:10 12/02/20 15:48 Temperature 98.6 F Temperature Source Oral Pulse Rate 85 81 60 Respiratory Rate 16 16 16 Blood Pressure 120/78 126/73 H 124/79 H Blood Pressure Mean 92 90 Pulse Ox 98 97 Oxygen Delivery Method Room Air Room Air Positive well nourished and well developed General Appearance ED: well developed and NAD HEENT Reports moist mucous membranes normocephalic and atraumatic Eyes PERRL, EOMs intact bilaterally and conjunctivae normal General Eye ED: Yes normal appearance of both eyes Neck no lymphadenopathy and supple General: Negative for tenderness Chest Wall Chest: Negative for tenderness Resp normal respiratory effort and normal air movement Effort and Inspection: symmetric chest movement; Negative for respiratory distress Cardio regular rate, regular rhythm and no murmurs Peripheral Pulses: pulses 2+ throughout GI normal to inspection, nondistended, normoactive bowel sounds GI Narrative: LLQ TTP Palpation: Negative for guarding or rebound tenderness present Back/Spine no CVA tenderness and no thoracic nor lumbar tenderness Extremity normal to inspection General Extremety ED: Negative for edema or tenderness General Extremity: Negative for edema Neuro oriented x3 and no sensory deficits noted Sensorium / Orientation: awake and alert Skin no rashes or lesions noted and no wounds MDM MDM MDM Narrative Medical decision making narrative: Patient recurrent abdominal pain diarrhea. Recent positive C. difficile infection. She is currently on oral vancomycin with a few days left. Due to increasing pain, CT scan obtained which was negative set for stable ventral hernia with mesh. Abdominal labs are all normal. White count 9.1. Creatinine 0.74. There is no ZUHAIR today. Initially treated with Dilaudid and Zofran. She was able to tolerate p.o. intake. [place] was given for additional pain control. Short prescription for pain and additional nausea refill was given. She will finish her antibiotics. All questions were answered. Lab Data Attestation: I reviewed the patient's lab results. Labs: Laboratory Results - last 24 hr 12/02/20 12/02/20 13:20 13:21 WBC 9.1 RBC 4.96 Hgb 13.3 Hct 41.2 MCV 83.1 MCH 26.8 L MCHC 32.3 RDW Std Deviation 51.3 H RDW Coeff of [place] 17.2 H Plt Count 275 MPV 9.5 Immature Gran % (Auto) 0.300 Neut % (Auto) 67.3 Lymph % (Auto) 20.9 [place] % (Auto) 8.2 Eos % (Auto) 2.2 Baso % (Auto) 1.1 H Absolute Neuts (auto) 6.1 Absolute Lymphs (auto) 1.90 Nucleated RBC % 0 Sodium 139 Potassium 4.2 Chloride 105 Carbon Dioxide 28.0 Anion Gap 6 BUN 9 Creatinine 0.74 Estim Creat Clear Calc 71.06 Est GFR (MDRD) Af Amer 105 Est GFR (MDRD) Non-Af 87 BUN/Creatinine Ratio 12.2 Glucose 218 H Calcium 9.2 Total Bilirubin 0.20 AST 14 L ALT 19 Alkaline Phosphatase 163 H Total Protein 6.5 Albumin 2.7 L Globulin 3.8 Albumin/Globulin Ratio 0.7 L Lipase 101 Radiography Diagnostic Testing: Radiology Impression Abdomen/Pelvis CT 12/02/20 13:30 IMPRESSION: Scattered sigmoid diverticula. Prior anterior abdominal wall hernia repair with a mesh. Electronically Signed: Manuelito Silva MD at 14:13 EDT , Service support , Discharge Plan Triage Chief Complaint: Abd Pain ED Provider: Lalo Gaxiola Dx/Rx/DC Orders Clinical Impression: Diarrhea, C. difficile diarrhea, Abdominal pain Instructions: Abdominal Pain, Treating Diarrhea, C diff Prescriptions: New hydrocodone-acetaminophen 5-325 mg tablet 1 tab PO Q6H PRN (Reason: pain) 3 Days Qty: 12 RF: 0 ondansetron 4 mg tablet,disintegrating 4 mg PO Q6H PRN (Reason: nausea and vomiting) Qty: 10 RF: 0 No Action sucralfate 1 gram tablet 1 g PO QACHS RF: 0 atorvastatin 80 MG tablet 80 mg PO QHS RF: 0 nitroglycerin 0.4 MG tablet, sublingual 0.4 mg SL PRN PRN (Reason: Cardiac/Chest Pain) RF: 0 risperidone 4 mg tablet 4 mg PO QHS RF: 0 trazodone 100 MG tablet 200 mg PO QHS RF: 0 pregabalin 75 MG capsule 75 mg PO TID RF: 0 tizanidine 4 MG tablet 6 mg PO TID PRN PRN (Reason: Spasms) RF: 0 buspirone 30 mg tablet 30 mg PO BID RF: 0 furosemide 20 MG tablet 20 mg PO DAILY RF: 0 mirabegron 25 MG tablet extended release 24 hr 25 mg PO DAILY RF: 0 lisinopril 20 MG tablet 20 mg PO QHS RF: 0 apixaban 5 MG tablet 5 mg PO BID RF: 0 acidophilus-pectin, citrus 1 TABLET tablet 2 tab PO BID RF: 0 insulin glargine 100 UNITS/ML insulin pen 40 units SC BID RF: 0 dicyclomine 10 MG capsule 20 mg PO TIDAC Qty: 10 RF: 0 metoclopramide HCl 10 MG tablet 10 mg PO 4X/DAY PRN (Reason: Headache) Qty: 20 RF: 0 clopidogrel 75 mg tablet 75 mg PO DAILY RF: 0 insulin lispro [Humalog KwikPen Insulin] 100 unit/mL Insulin Pen 10 unit subcut TIDAC Qty: 0 RF: 0 sennosides-docusate sodium [Stool Softener-Stimulant Laxat] 8.6-50 mg Tablet 2 tab PO BID PRN PRN (Reason: Constipation) Qty: 0 RF: 0 hydrocodone-acetaminophen 5-300 mg Tablet 1 tab PO Q6H PRN PRN (Reason: Pain) RF: 0 potassium chloride [K-Tab] 20 mEq tablet extended release 40 meq PO DAILY Qty: 60 RF: 0 lamotrigine 25 mg Tablet 25 mg PO DAILY RF: 0 promethazine 25 mg Tablet 25 mg PO BID PRN PRN (Reason: Nausea) RF: 0 escitalopram oxalate 20 mg Tablet 20 mg PO DAILY RF: 0 Advair HFA 230-21 mcg/actuation Hfa Aerosol Inhaler 2 puff INHALATION BID RF: 0 albuterol sulfate 1 PUFF HFA aerosol inhaler 2 puff IH Q4H PRN PRN (Reason: SOB &/or Wheezing ) RF: 0 loperamide [Imodium A-D] 2 mg Capsule 2 mg PO Q6H PRN (Reason: Diarrhea) RF: 0 pantoprazole 40 mg Tablet,Delayed Release (Dr/Ec) 40 mg PO BID RF: 0 fluticasone propionate 50 mcg/actuation [place],Suspension 1 spray INTRANASAL BID RF: 0 amlodipine 2.5 mg tablet 10 mg PO DAILY RF: 0 metoprolol succinate 25 mg tablet extended release 24 hr 50 mg PO DAILY RF: 0 vancomycin 125 mg capsule 125 mg PO Q6H 7 Days Qty: 28 RF: 0 tiotropium bromide 2.5 mcg/actuation mist 2 puff INHALATION DAILY Qty: 4 RF: 3 montelukast 10 mg tablet 10 mg PO QHS Qty: 30 RF: 5 Primary Care Provider: Janel Taylor Referrals: Janel Taylor MD [Primary Care Provider] - 3-5 Days Disposition Disposition: Home, Self Care Discharge Date/Time: 12/02/20 15:49
[2020-12-02 13:48] LABS: ALB/GLOB Ratio 0.7 RATIO (0.9-2.4); AST(SGOT) 14 U/L (15-37); Alanine Aminotransfer ALT/SGPT 19 U/L (13-56); Albumin, Serum 2.7 g/dL (3.2-5.0); Alkaline Phosphatase 163 U/L (45-117); Anion Gap 6 (5-15); BUN 9 mg/dL (7-18); BUN/Creat Ratio 12.2 RATIO (10-20); Calcium,Total 9.2 mg/dL (8.5-10.1); Chloride 105 mmol/L (98-107); Creatinine, Serum 0.74 mg/dL (0.55-1.02); EST Glomerular Filtration Rate 87 mL/min (>60); Est Glom Filt Rate - Afr Amer 105 mL/min (>60); Estimated Creatinine Clearance 71.06 ml/min; Globulin 3.8 g/dL (2.2-4.2); Glucose 218 mg/dL (74-106); Lipase 101 U/L (73-393); Potassium 4.2 mmol/L (3.5-5.1); Protein, Total 6.5 g/dL (6.4-8.2); Sodium Level 139 mmol/L (136-145)
[2020-12-02] MEDS: Famotidine 200 MG/20 ML MDV 20 MG in 0.9% Normal Saline (Pres. free 8 ML 300 MG IV (14:19)
[2020-12-02 15:10] VITALS: BP 126/73; PULSE 81; RESP 16; O2SAT 97
[2020-12-02 15:48] VITALS: BP 124/79; PULSE 60; RESP 16
== END 2020-12-02 15:49 | disposition home or self-care (01) ==
PROVIDERS: Emergency Provider Emergency Medicine; PCP Family Medicine
DX: A04.72 Enterocolitis due to Clostridium difficile, not specified as recurrent (principal); J44.9 Chronic obstructive pulmonary disease, unspecified; E11.9 Type 2 diabetes mellitus without complications; E04.1 Nontoxic single thyroid nodule; I10 Essential (primary) hypertension; E78.00 Pure hypercholesterolemia, unspecified; K21.9 Gastro-esophageal reflux disease without esophagitis; K58.9 Irritable bowel syndrome, unspecified; G47.33 Obstructive sleep apnea (adult) (pediatric); F25.9 Schizoaffective disorder, unspecified; E66.01 Morbid (severe) obesity due to excess calories; Z68.42 Body mass index [BMI] 45.0-49.9, adult; F17.210 Nicotine dependence, cigarettes, uncomplicated; Z99.81 Dependence on supplemental oxygen; Z79.01 Long term (current) use of anticoagulants; Z79.02 Long term (current) use of antithrombotics/antiplatelets; Z79.4 Long term (current) use of insulin; Z79.891 Long term (current) use of opiate analgesic; Z79.51 Long term (current) use of inhaled steroids; Z79.899 Other long term (current) drug therapy; I25.2 Old myocardial infarction; Z86.711 Personal history of pulmonary embolism; Z98.61 Coronary angioplasty status; Z98.84 Bariatric surgery status
CPT/HCPCS: 74176; 80053; 83690; 85025; 96361; 96365; 96375; 99284; J7030; A4216; J2405; J3490

== ENCOUNTER 2021-01-13 01:20 | Inpatient (IN) | payer MEDICARE, MEDICAID, SELFPAY ==
[2021-01-13] VITALS (22 sets, daily range): BP systolic 68–154; BP diastolic 52–82; PULSE 52–92; RESP 14–25; TEMP 36–37.1; O2SAT 93–98; BMI 39.8; BMI 39.7
--- NOTE | 2021-01-13 01:42 | EKG12_ITS ---
Test Reason : FALL/DIZZINESS Blood Pressure : / mmHG Vent. Rate : 063 BPM Atrial Rate : 063 BPM P-R Int : 156 ms QRS Dur : 082 ms QT Int : 422 ms P-R-T Axes : 022 020 022 degrees QTc Int : 431 ms Normal sinus rhythm Low voltage QRS Borderline ECG Confirmed by LORIE TAFOYA, DESTINY ([id number]), newspaper managing editor MARTHA SCOTT ([id number]) on 01/14/2021 8:55:55 AM Referred By: URIEL Confirmed By:DESTINY MELO MD
--- NOTE | 2021-01-13 01:42 | RAD_ITS ---
STUDY: X-RAY - LEFT TIBIA AND FIBULA REASON FOR EXAM: Female, 55 years old. pain TECHNIQUE: 2 view(s) of the tibia and fibula were obtained. COMPARISON: None. FINDINGS: There is nondisplaced fracture in the proximal metaphysis of the fibula. There is ORIF for ankle fractures with hardware in good position. Advanced degenerative changes are noted in the tibiotalar joint. The soft tissue structures are unremarkable. RAD/Tibia & Fibula 2 Views IMPRESSION: There is nondisplaced fracture in the proximal metaphysis of the fibula. Electronically Signed: Ana Kasper MD at 2:55 EST Tel , Service support ,
--- NOTE | 2021-01-13 01:42 | RAD_ITS ---
STUDY: X-RAY CHEST REASON FOR EXAM: Female, 55 years old. cough TECHNIQUE: Single AP portable view of the chest. COMPARISON: None. FINDINGS: The lungs are clear and expanded. There is no demonstrated pleural abnormality. Normal size heart. Normal mediastinum and alden. Normal visualized pulmonary arteries. Normal visualized aortic arch and descending thoracic aorta. Normal visualized thoracic spine. There is degenerative osteoarthritis of the bilateral shoulders. There is no demonstrated abnormality of the visualized soft tissue structures of the upper abdomen. RAD/Chest 1 View (Portable) IMPRESSION: Degenerative changes, as described above. No demonstrated acute cardiopulmonary process. Electronically Signed: Ana Kasper MD at 2:59 EST Tel , Service support ,
[2021-01-13] MEDS: 0.9% Normal Saline 1,000 ML 999 ML IV ×5 (01:45→08:29)
[2021-01-13 01:51] LABS: Absolute Lymphocyte Count 2.24 X10^3/uL (0.83-4.51); Absolute Neutrophil Count 8.8 X10^3/uL (2.0-7.7); Basophil# 0.14 X10^3/uL; Basophil% 1.1 % (0-1); Eosinophils% 3.2 % (0-5); Hematocrit 46.3 % (37-47); Hemoglobin 15.1 g/dL (12.0-15.0); Lymphocyte # 2.24 X10^3/ul (0.83-4.51); Mean Corp Hgb Conc 32.6 g/dL (32-36); Mean Corpuscular Hgb 27.7 pg (27.0-32.0); Mean Platelet Vol. 9.2 fl (6.2-12.0); Monocyte# 0.76 X10^3/uL; Monocyte% 6.1 % (0-10); NRBC Flagged by Analyzer 0 % (0-5); Neutrophil % 70.9 % (47-70); Platelet Count 317 K/mm3 (150-450); RBC Distribution Width CV 16.9 % (11.6-14.6); RBC Distribution Width SD 51.6 fl (35.1-43.9); Red Blood Count 5.45 M/mm3 (4.2-5.4); White Blood Count 12.4 K/mm3 (4.4-11.0)
--- NOTE | 2021-01-13 01:52 | EKG12_ITS ---
Test Reason : FALL/DIZZINESS Blood Pressure : / mmHG Vent. Rate : 063 BPM Atrial Rate : 063 BPM P-R Int : 160 ms QRS Dur : 082 ms QT Int : 416 ms P-R-T Axes : 149 162 157 degrees QTc Int : 425 ms Suspect arm lead reversal, interpretation assumes no reversal Possible ectopic atrial rhythm Low voltage QRS Lateral infarct , age undetermined Inferior infarct , age undetermined Abnormal ECG When compared with ECG of 26-NOV-2020 14:43, Significant changes have occurred Confirmed by MARYAM TAFOYA, JAZZMINE ([id number]), editor dictionary MARTHA SCOTT ([id number]) on 01/19/2021 11:06:42 AM Referred By: URIEL Confirmed By:JAZZMINE FRANCISCO MD
[2021-01-13 02:06] LABS: ALB/GLOB Ratio 0.8 RATIO (0.9-2.4); AST(SGOT) 16 U/L (15-37); Alanine Aminotransfer ALT/SGPT 25 U/L (13-56); Albumin, Serum 3.1 g/dL (3.2-5.0); Alkaline Phosphatase 179 U/L (45-117); Anion Gap 10 (5-15); BUN 7 mg/dL (7-18); BUN/Creat Ratio 6.5 RATIO (10-20); Calcium,Total 9.5 mg/dL (8.5-10.1); Chloride 100 mmol/L (98-107); Creatinine, Serum 1.08 mg/dL (0.55-1.02); EST Glomerular Filtration Rate 56 mL/min (>60); Est Glom Filt Rate - Afr Amer 68 mL/min (>60); Estimated Creatinine Clearance 48.69 ml/min; Globulin 4.1 g/dL (2.2-4.2); Glucose 234 mg/dL (74-106); Potassium 4.6 mmol/L (3.5-5.1); Protein, Total 7.2 g/dL (6.4-8.2); Sodium Level 131 mmol/L (136-145); Troponin-I HS 8 pg/mL (3.0-54.0)
[2021-01-13 02:08] LABS: Lactic Acid 4.2 mmol/L (0.4-1.9)
--- NOTE | 2021-01-13 02:29 | EDS_ITS ---
HPI HPI - Fall History of Present Illness Chief Complaint: Fall Narrative Narrative: Patient with multiple medical problems including diabetes, hypertension, schizophrenia, presents via EMS status post fall. She states she got up to get something to drink and felt lightheaded, and fell. She now has pain in her left anterior tibia/fibular area. Of note, she has been seen by a portainer operator because she has bilateral ankle fractures that are not healing correctly. Her fractures are remote. She wears wraps on them for support. She states that she took her antihypertensive medications over 12 hours ago. She denies any chest pain or shortness of breath. No dysuria or hematuria. No cough or shortness of breath. She states that she has been eating and drinking well. She denies any diarrhea. PFSH [facility] Medical History Anemia Asthma Benign essential hypertension Bleeding tendency Chest pain Chronic cough Chronic narcotic use COPD (chronic obstructive pulmonary disease) Current use of insulin Delayed surgical wound healing Diabetes Emphysema of lung Gastroesophageal reflux disease High cholesterol Hip osteoarthritis History of pulmonary embolism History of stress test Hypertension Irregular heart beat Irritable bowel Morbid obesity with BMI of 45.0-49.9, adult Myocardial infarct On home oxygen therapy RACHEL (obstructive sleep apnea) Pancreatitis Peptic ulcer Schizoaffective disorder Sleep apnea Smoker Spinal stenosis of lumbar region at multiple levels Thyroid nodule Tobacco abuse Ulcer Vitamin D deficiency Home Medications atorvastatin 80 mg PO QHS 08/22/15 [History Last Taken 12/17/19 22:26] nitroglycerin 0.4 mg SL PRN PRN 11/08/16 [History Last Taken 11/01/17 0.4 MG] pregabalin 75 mg PO TID 03/08/18 [History Last Taken 12/18/19 14:40] risperidone 4 mg PO QHS 03/08/18 [History Last Taken 12/17/19 22:27] tizanidine 6 mg PO TID PRN PRN 03/08/18 [History Last Taken 12/18/19 14:37] trazodone 200 mg PO QHS 03/08/18 [History Last Taken 12/17/19 22:26] furosemide 20 mg PO DAILY 11/20/18 [History Last Taken 12/16/19] lisinopril 20 mg PO QHS 11/20/18 [History Last Taken 12/17/19 22:26] mirabegron 25 mg PO DAILY 11/20/18 [History Last Taken 12/18/19 08:47] apixaban 5 mg PO BID 05/02/19 [History Last Taken 12/18/19 10:22] buspirone 30 mg tablet 30 mg PO BID tab 06/27/19 [History Last Taken 12/18/19 08:46] sucralfate 1 gram tablet 1 g PO QACHS 06/27/19 [History Last Taken 12/18/19 16:13] tiotropium bromide 2.5 mcg/actuation mist for inhalation 2 puff INHALATION DAILY #4 g 09/30/19 [Rx Last Taken 12/18/19 13:02] montelukast 10 mg tablet 10 mg PO QHS #30 tab 10/30/19 [Rx Last Taken 12/17/19 22:26] acidophilus-pectin, citrus 2 tab PO BID 12/16/19 [History Last Taken 12/18/19 10:25] insulin glargine 40 units SC BID 12/18/19 [History Last Taken 12/18/19 10:25] dicyclomine 20 mg PO TIDAC #10 cap 03/16/20 [Rx Last Taken Unknown] metoclopramide HCl 10 mg PO 4X/DAY PRN #20 tab 03/16/20 [Rx Last Taken Unknown] clopidogrel 75 mg PO DAILY 07/31/20 [History Last Taken Unknown] insulin lispro [Humalog KwikPen Insulin] 10 unit SUBCUT TIDAC #0 ml 08/11/20 [Rx Last Taken Unknown] sennosides-docusate sodium [Stool Softener-Stimulant Laxat] 2 tab PO BID PRN PRN #0 tab 08/11/20 [Rx Last Taken Unknown] hydrocodone-acetaminophen 1 tab PO Q6H PRN PRN 10/03/20 [History Last Taken Unknown] potassium chloride [K-Tab] 40 meq PO DAILY #60 tab 10/05/20 [Rx Last Taken Unknown] Advair HFA 2 puff INHALATION BID 11/14/20 [History Last Taken Unknown] albuterol sulfate 2 puff IH Q4H PRN PRN 11/14/20 [History Last Taken Unknown] amlodipine 10 mg PO DAILY 11/14/20 [History Last Taken Unknown] escitalopram oxalate 20 mg PO DAILY 11/14/20 [History Last Taken Unknown] fluticasone propionate 1 spray INTRANASAL BID 11/14/20 [History Last Taken Unknown] loperamide [Imodium A-D] 2 mg PO Q6H PRN 11/14/20 [History Last Taken Unknown] metoprolol succinate 50 mg PO DAILY 11/14/20 [History Last Taken Unknown] pantoprazole 40 mg PO BID 11/14/20 [History Last Taken Unknown] promethazine 25 mg PO BID PRN PRN 11/14/20 [History Last Taken Unknown] vancomycin 125 mg PO Q6H 7 Days #28 cap 11/27/20 [Rx Last Taken Unknown] hydrocodone-acetaminophen 1 tab PO Q6H PRN 3 Days #12 tab 12/02/20 [Rx Last Taken Unknown] ondansetron 4 mg PO Q6H PRN #10 tab 12/02/20 [Rx Last Taken Unknown] lamotrigine 25 mg tablet 25 mg PO DAILY 01/11/21 [History Last Taken Unknown] Allergy/AdvReac Type Severity Reaction Status Date / Time amoxicillin Allergy Itching Verified 01/13/21 01:24 erythromycin base Allergy Unknown Verified 01/13/21 01:24 methadone Allergy Itching Verified 01/13/21 01:24 metolazone Allergy Unknown Verified 01/13/21 01:24 Penicillins Allergy Hives Verified 01/13/21 01:24 Sulfa (Sulfonamide Allergy Hives Verified 01/13/21 01:24 Antibiotics) clarithromycin [From Biaxin] AdvReac Nausea Verified 01/13/21 01:24 ibuprofen AdvReac 3 BLEEDING Verified 01/13/21 01:24 ULCERS morphine AdvReac HEADACHE Verified 01/13/21 01:24 oxycodone [From Percocet] AdvReac Itching Verified 01/13/21 01:24 Family History Mother Heart disease Cancer ovarian Father Hypertension Arthritis Hyperlipemia Grandmother Breast cancer Heart disease Grandfather Heart disease Surgical History H/O cardiac catheterization H/O heart artery stent History of appendectomy history of carpal tunnel release left wrist History of carpal tunnel surgery of left wrist History of cholecystectomy History of gastric bypass History of PTCA History of right ankle surgery history of right hip surgery History of tonsillectomy Social History household members: none Smoking Status: Current every day smoker tobacco type: cigarettes Tobacco: How many years used: 39 alcohol intake: never substance use type: does not use caffeine: No what type of physical activity do you participate in: none ROS ROS ED ROS Narrative Constitutional: No fever, no chills. HEENT: No sore throat. No neck pain. No loss of vision. No rhinorrhea. Cardiovascular: No chest pain. No palpitations. No pedal edema. Respiratory: No cough, no shortness of breath. Abdominal: No abdominal pain. No nausea. No vomiting. Genitourinary: No dysuria. No hematuria. Musculoskeletal: No myalgias. No arthralgias. Positive left anterior tibial tenderness, no crepitance. Neurologic: No headaches. No dizziness. Positive lightheadedness. Skin: No rash. No change in color. Psychiatric: No depression. No anxiety. EXAM Physical Exam Narrative Exam Narrative: Afebrile. Vital signs noted. HEENT: Normocephalic. Atraumatic. PERRL, EOMI. Neck soft and supple. No point tenderness or step off. Cardiovascular: Regular rate and rhythm. No murmurs, rubs, or gallops appreciated. Respiratory: No tachypnea. Lungs clear to auscultation bilaterally. Gastrointestinal: Abdomen soft, nontender, with normoactive bowel sounds. No rebound or guarding. Neurological: Awake. Alert. Nonfocal, nonlateralizing. Skin: No rash. Normal color. No pallor. Musculoskeletal: No pedal edema. Full range of motion extremities. Bilateral ankles and support bandages. Mild tenderness to palpation left anterior tibial surface. No laceration or abrasions noticed. Able to flex and extend left knee. Const Vital Signs: 01/13/21 01:21 01/13/21 01:25 01/13/21 01:37 Temperature 97.6 F L Temperature Source Oral Pulse Rate 76 68 Respiratory Rate 16 25 H Respiratory Effort Normal Non-Labored Respiratory Depth Normal Respiratory Pattern Normal Blood Pressure 68/52 L 72/63 L Blood Pressure Mean 57 66 Pulse Ox 97 97 Oxygen Delivery Method Room Air Room Air Room Air 01/13/21 01:44 01/13/21 02:01 01/13/21 02:30 Temperature 96.8 F L Temperature Source Temporal Pulse Rate 68 60 Respiratory Rate 25 H 21 H Respiratory Effort Respiratory Depth Respiratory Pattern Blood Pressure 72/63 L 98/61 Blood Pressure Mean 66 73 Pulse Ox 98 97 Oxygen Delivery Method Room Air Room Air 01/13/21 03:02 01/13/21 03:29 Temperature 96.8 F L Temperature Source Temporal Pulse Rate 52 L 63 Respiratory Rate 16 18 Respiratory Effort Respiratory Depth Respiratory Pattern Blood Pressure 88/57 L 99/63 Blood Pressure Mean 67 75 Pulse Ox 96 98 Oxygen Delivery Method Room Air Room Air MDM MDM MDM Narrative Medical decision making narrative: Upon arrival to the ED, patient is hypotensi ve. IV fluids were started. WBC count elevated at 12.4 with hemoglobin 15.1. Sodium is slightly low 131, BUN of 7 with a creatinine of 1.0. Glucose elevated at 234 consistent with her diabetes. Anion gap normal at 10. Lactic acid is elevated at 4.2. High-sensitivity troponin is normal at 8. Her EKG demonstrates normal sinus rhythm at 63 bpm without ectopy or acute ST changes. Urinalysis was positive for nitrites with 100 leukocytes. Microanalysis shows 10-20 WBCs per high-power field. Chest x-ray shows no acute process. X-ray of the tibia/fibula shows a nondisplaced proximal fibular metaphysis fracture. I discussed patient with Carlos Lopez who agrees and putting the patient in a knee immobilizer. She can be weightbearing as tolerated. This is nonoperative. As her lactic acid is elevated at 4.2, she will be given IV fluids at 30 mg/kg. Her urine cultures and blood cultures are currently pending. She was started on meropenem given her multiple allergies to penicillin and amoxicillin. Her systolic blood pressure is now 108 during administration of her second liter. At this point in time, she will be discussed with the hospitalist for admission for her uti with sepsis/septic shock. Reperfusion examination was performed at approximately 4:05 AM. Patient is in guarded condition. Lab Data Attestation: I reviewed the patient's lab results. Labs: Laboratory Results - last 24 hr 01/13/21 01/13/21 01/13/21 01:32 01:32 01:32 WBC 12.4 H RBC 5.45 H Hgb 15.1 H Hct 46.3 MCV 85.0 MCH 27.7 MCHC 32.6 RDW Std Deviation 51.6 H RDW Coeff of Kaycee 16.9 H Plt Count 317 MPV 9.2 Immature Gran % (Auto) 0.700 Neut % (Auto) 70.9 H Lymph % (Auto) 18.0 L Alcorn % (Auto) 6.1 Eos % (Auto) 3.2 Baso % (Auto) 1.1 H Absolute Neuts (auto) 8.8 H Absolute Lymphs (auto) 2.24 Nucleated RBC % 0 Sodium 131 L Potassium 4.6 Chloride 100 Carbon Dioxide 21.0 Anion Gap 10 BUN 7 Creatinine 1.08 H Estim Creat Clear Calc 48.69 Est GFR (MDRD) Af Amer 68 Est GFR (MDRD) Non-Af 56 L BUN/Creatinine Ratio 6.5 L Glucose 234 H Lactic Acid 4.2 H* Calcium 9.5 Total Bilirubin 0.40 AST 16 ALT 25 Alkaline Phosphatase 179 H Troponin I High Sens 8 Total Protein 7.2 Albumin 3.1 L Globulin 4.1 Albumin/Globulin Ratio 0.8 L Urine Color Urine Clarity Urine pH Ur Specific Bradford Urine Protein Urine Glucose (UA) Urine Ketones Urine Occult Blood Urine Nitrite Urine Bilirubin Urine Urobilinogen Ur Leukocyte Esterase Urine RBC Urine WBC Ur Squamous Epith Cells Urine Bacteria Hyaline Casts Urine Mucus 01/13/21 02:25 WBC RBC Hgb Hct MCV MCH MCHC RDW Std Deviation RDW Coeff of Kaycee Plt Count MPV Immature Gran % (Auto) Neut % (Auto) Lymph % (Auto) Alcorn % (Auto) Eos % (Auto) Baso % (Auto) Absolute Neuts (auto) Absolute Lymphs (auto) Nucleated RBC % Sodium Potassium Chloride Carbon Dioxide Anion Gap BUN Creatinine Estim Creat Clear Calc Est GFR (MDRD) Af Amer Est GFR (MDRD) Non-Af BUN/Creatinine Ratio Glucose Lactic Acid Calcium Total Bilirubin AST ALT Alkaline Phosphatase Troponin I High Sens Total Protein Albumin Globulin Albumin/Globulin Ratio Urine Color Yellow Urine Clarity Clear Urine pH 5.0 Ur Specific Bradford 1.015 Urine Protein 30 H Urine Glucose (UA) Normal Urine Ketones Negative Urine Occult Blood Negative Urine Nitrite Positive H Urine Bilirubin Negative Urine Urobilinogen Normal Ur Leukocyte Esterase 100 H Urine RBC 0 SEEN Urine WBC 10-25 SEEN Ur Squamous Epith Cells 0-5 SEEN Urine Bacteria 3+ Hyaline Casts 0-5 SEEN Urine Mucus 0 SEEN Radiography Diagnostic Testing: Clinical Impression(s) from Imaging Studies Chest X-Ray 01/13/21 01:42 IMPRESSION: Degenerative changes, as described above. No demonstrated acute cardiopulmonary process. Electronically Signed: Ana Kasper MD at 2:59 EST Tel , Service support , Tibia/Fibula X-Ray 01/13/21 01:42 IMPRESSION: There is nondisplaced fracture in the proximal metaphysis of the fibula. Electronically Signed: Ana Kasper MD at 2:55 EST Tel , Service support , Critical Care Time Critical Care Time: Yes Critical care time (excluding procedures): 30-74 minutes (31), Including time spent:, Discussing w/Patient &/or Family/Budget Counselor, Discussing w/Consultants and Arranging Admission or Transfer Discharge Plan Dx/Rx/DC Orders Clinical Impression: Fall, Closed fracture of proximal end of fibula, Sepsis, UTI (urinary tract infection) Disposition Disposition: Acute Care Hospital [facility]
[2021-01-13 02:38] LABS: Color, Urine Yellow (Yellow); Glucose, Dipstick Normal (Normal); Ketone-Dipstick Negative (Negative); Leukocyte Esterase-Dipstick 100 /ul (Negative); Mucous, Urine 0 SEEN /hpf (<or=2+); Nitrite-Dipstick Positive (Negative); Occult Blood-Urine Negative /ul (Negative); Protein-Dipstick 30 mg/dl (Negative); Red Blood Cells-Urine 0 SEEN /hpf (0-5); Specific Gravity, Urine 1.015 (1.002-1.030); Urine Bilirubin Dipstick Negative (Negative); Urine Clarity Clear (Clear); Urine Urobilinogen Normal (Normal)
[2021-01-13 02:55] LABS: Bacteria 3+ /hpf (None Seen); Hyaline Cast 0-5 SEEN /lpf (0-5); Squamous Epithelial Cells - UA 0-5 SEEN /hpf (5-10); White Blood Cells 10-25 SEEN /hpf (0-5)
--- NOTE | 2021-01-13 04:36 | HP.PCM.HOS_ITS ---
HPI - General General Date of Admission: 01/13/21 HPI Narrative TALAT HAN, is a 55 F with a significant history of schizoaffective disorder and tobacco abuse who presents to the emergency department with a fall that occurred about an hour prior to presentation. Reportedly patient felt lightheaded; shaky and weak and fell. She has a chronic pain on her right hip and right buttocks. She has bilateral splints on her ankles. With her fall she developed pain in her left leg. Patient denies any change in urinary frequency. However she reports difficulty in urination for the past 2 weeks. She report diarrhea for the past 2 or 3 days. FORMERLY [facility], [facility] Medical History Anemia Asthma Benign essential hypertension Bleeding tendency Chest pain Chronic cough Chronic narcotic use COPD (chronic obstructive pulmonary disease) Current use of insulin Delayed surgical wound healing Diabetes Emphysema of lung Gastroesophageal reflux disease High cholesterol Hip osteoarthritis History of pulmonary embolism History of stress test Hypertension Irregular heart beat Irritable bowel Morbid obesity with BMI of 45.0-49.9, adult Myocardial infarct On home oxygen therapy RACHEL (obstructive sleep apnea) Pancreatitis Peptic ulcer Schizoaffective disorder Sleep apnea Smoker Spinal stenosis of lumbar region at multiple levels Thyroid nodule Tobacco abuse Ulcer Vitamin D deficiency Home Medications atorvastatin 80 mg PO QHS 08/22/15 [History Last Taken 12/17/19 22:26] nitroglycerin 0.4 mg SL PRN PRN 11/08/16 [History Last Taken 11/01/17 0.4 MG] pregabalin 75 mg PO TID 03/08/18 [History Last Taken 12/18/19 14:40] risperidone 4 mg PO QHS 03/08/18 [History Last Taken 12/17/19 22:27] tizanidine 6 mg PO TID PRN PRN 03/08/18 [History Last Taken 12/18/19 14:37] trazodone 200 mg PO QHS 03/08/18 [History Last Taken 12/17/19 22:26] furosemide 20 mg PO DAILY 11/20/18 [History Last Taken 12/16/19] lisinopril 20 mg PO QHS 11/20/18 [History Last Taken 12/17/19 22:26] mirabegron 25 mg PO DAILY 11/20/18 [History Last Taken 12/18/19 08:47] apixaban 5 mg PO BID 05/02/19 [History Last Taken 12/18/19 10:22] buspirone 30 mg tablet 30 mg PO BID tab 06/27/19 [History Last Taken 12/18/19 08:46] sucralfate 1 gram tablet 1 g PO QACHS 06/27/19 [History Last Taken 12/18/19 16:13] tiotropium bromide 2.5 mcg/actuation mist for inhalation 2 puff INHALATION DAILY #4 g 09/30/19 [Rx Last Taken 12/18/19 13:02] montelukast 10 mg tablet 10 mg PO QHS #30 tab 10/30/19 [Rx Last Taken 12/17/19 22:26] acidophilus-pectin, citrus 2 tab PO BID 12/16/19 [History Last Taken 12/18/19 10:25] insulin glargine 40 units SC BID 12/18/19 [History Last Taken 12/18/19 10:25] dicyclomine 20 mg PO TIDAC #10 cap 03/16/20 [Rx Last Taken Unknown] metoclopramide HCl 10 mg PO 4X/DAY PRN #20 tab 03/16/20 [Rx Last Taken Unknown] clopidogrel 75 mg PO DAILY 07/31/20 [History Last Taken Unknown] insulin lispro [Humalog KwikPen Insulin] 10 unit SUBCUT TIDAC #0 ml 08/11/20 [Rx Last Taken Unknown] sennosides-docusate sodium [Stool Softener-Stimulant Laxat] 2 tab PO BID PRN PRN #0 tab 08/11/20 [Rx Last Taken Unknown] hydrocodone-acetaminophen 1 tab PO Q6H PRN PRN 10/03/20 [History Last Taken Unknown] potassium chloride [K-Tab] 40 meq PO DAILY #60 tab 10/05/20 [Rx Last Taken U nknown] Advair HFA 2 puff INHALATION BID 11/14/20 [History Last Taken Unknown] albuterol sulfate 2 puff IH Q4H PRN PRN 11/14/20 [History Last Taken Unknown] amlodipine 10 mg PO DAILY 11/14/20 [History Last Taken Unknown] escitalopram oxalate 20 mg PO DAILY 11/14/20 [History Last Taken Unknown] fluticasone propionate 1 spray INTRANASAL BID 11/14/20 [History Last Taken Unknown] loperamide [Imodium A-D] 2 mg PO Q6H PRN 11/14/20 [History Last Taken Unknown] metoprolol succinate 50 mg PO DAILY 11/14/20 [History Last Taken Unknown] pantoprazole 40 mg PO BID 11/14/20 [History Last Taken Unknown] promethazine 25 mg PO BID PRN PRN 11/14/20 [History Last Taken Unknown] vancomycin 125 mg PO Q6H 7 Days #28 cap 11/27/20 [Rx Last Taken Unknown] hydrocodone-acetaminophen 1 tab PO Q6H PRN 3 Days #12 tab 12/02/20 [Rx Last Taken Unknown] ondansetron 4 mg PO Q6H PRN #10 tab 12/02/20 [Rx Last Taken Unknown] lamotrigine 25 mg tablet 25 mg PO DAILY 01/11/21 [History Last Taken Unknown] Allergy/AdvReac Type Severity Reaction Status Date / Time amoxicillin Allergy Itching Verified 01/13/21 01:24 erythromycin base Allergy Unknown Verified 01/13/21 01:24 methadone Allergy Itching Verified 01/13/21 01:24 metolazone Allergy Unknown Verified 01/13/21 01:24 Penicillins Allergy Hives Verified 01/13/21 01:24 Sulfa (Sulfonamide Allergy Hives Verified 01/13/21 01:24 Antibiotics) clarithromycin [From Biaxin] AdvReac Nausea Verified 01/13/21 01:24 ibuprofen AdvReac 3 BLEEDING Verified 01/13/21 01:24 ULCERS morphine AdvReac HEADACHE Verified 01/13/21 01:24 oxycodone [From Percocet] AdvReac Itching Verified 01/13/21 01:24 Family History Mother Heart disease Cancer ovarian Father Hypertension Arthritis Hyperlipemia Grandmother Breast cancer Heart disease Grandfather Heart disease Surgical History H/O cardiac catheterization H/O heart artery stent History of appendectomy history of carpal tunnel release left wrist History of carpal tunnel surgery of left wrist History of cholecystectomy History of gastric bypass History of PTCA History of right ankle surgery history of right hip surgery History of tonsillectomy Social History household members: none Smoking Status: Current every day smoker tobacco type: cigarettes Tobacco: How many years used: 39 alcohol intake: never substance use type: does not use caffeine: No what type of physical activity do you participate in: none ROS ROS Narrative Constitutional: Denies fever, chills, fatigue, anorexia and change in weight Eyes: Denies blurry vision, change in eye color, change in vision, discharge from eye(s), double vision, erythema, eye pain, loss of vision or other HEENT: Denies abnormal hearing, dysphagia, ear pain, epistaxis, headache(s), hearing loss, nasal congestion, nasal discharge, post nasal drip, sinus pressure, sore throat or other Cardiovascular: Denies chest pain or palpitations. Denies dyspnea on exertion, orthopnea and paroxysmal nocturnal dyspnea Respiratory/Chest: Denies cough, excessive phlegm production, shortness of breath with exertion and wheezing Gastrointestinal: Denies abdominal pain, coffee ground emesis, constipation, diarrhea, dyspepsia, hematemesis, hematochezia, loose stools, melena, nausea, vo miting or other Genitourinary: Reports difficulty urinating. Denies burning urination, dysuria, hematuria, nocturia, urinary frequency, urinary hesitancy, urinary incontinence, urinary urgency or other Musculoskeletal: Right hip and right buttocks pain. Pain bilateral ankles. Pain in left leg. Neurologic: Denies abnormal gait, abnormal speech, confusion, disequilibrium, dizziness, focal weakness, headache(s), numbness, paresthesias, seizure-like activity, seizures, syncope, tingling, tremor(s) or other Psychiatric: Denies anxiety, depression, homicidal ideation, suicidal ideation or other Endocrinology: Denies change in body appearance, cold intolerance, excessive sweating, heat intolerance, polydipsia, polyuria or other Hematologic/Lymphatic: Denies anemia, easy bleeding, easy bruising, lymphadenopathy or other Integumentary: Denies rashes Allergic/Immunologic: Denies rhinitis, hives, eczema, asthma or other Vital Signs Vital Signs Vital Signs: 01/13/21 01:21 01/13/21 01:25 01/13/21 01:37 Temperature 97.6 F L Temperature Source Oral Pulse Rate 76 68 Respiratory Rate 16 25 H Respiratory Effort Normal Non-Labored Respiratory Depth Normal Respiratory Pattern Normal Blood Pressure 68/52 L 72/63 L Blood Pressure Mean 57 66 Pulse Ox 97 97 Oxygen Delivery Method Room Air Room Air Room Air 01/13/21 01:44 01/13/21 02:01 01/13/21 02:30 Temperature 96.8 F L Temperature Source Temporal Pulse Rate 68 60 Respiratory Rate 25 H 21 H Respiratory Effort Respiratory Depth Respiratory Pattern Blood Pressure 72/63 L 98/61 Blood Pressure Mean 66 73 Pulse Ox 98 97 Oxygen Delivery Method Room Air Room Air 01/13/21 03:02 01/13/21 03:29 Temperature 96.8 F L Temperature Source Temporal Pulse Rate 52 L 63 Respiratory Rate 16 18 Respiratory Effort Respiratory Depth Respiratory Pattern Blood Pressure 88/57 L 99/63 Blood Pressure Mean 67 75 Pulse Ox 96 98 Oxygen Delivery Method Room Air Room Air Weight Weight: 102 kg Body Mass Index (BMI) 39.8 Physical Exam Narrative Physical exam: General: Well-nourished, well-developed. Head: Normocephalic, atraumatic, no tenderness Eyes: PERRLA, EOMI ENT, no trauma, moist mucous membranes, no rhinorrhea Neck: Nontender, full range of motion, no spinal tenderness, deformities, step- off CVS: Regular rate and rhythm. S1-S2 present. No murmur, gallop or rub. Respiratory : clear to auscultation bilaterally, chest wall nontender, no wheezing Abdomen: Soft, nontender, nondistended, normal bowel sounds, no masses : Deferred Back: Nontender, no CVA tenderness, no midline spinal tenderness, deformities, step-offs Extremities: Bilateral ankles and splints. Left lower extremity in splint. Neuro: Alert, oriented, cranial nerves II through XII grossly intact. Psychiatry: Normal mood. Normal affect. Not depressed. Not anxious. Results Lab / Micro Data Result Diagrams: 01/13/21 01:32 01/13/21 01:32 Labs: Laboratory Results - last 24 hr 01/13/21 01:32: WBC 12.4 H, RBC 5.45 H, Hgb 15.1 H, Hct 46.3, MCV 85.0, MCH 27.7, MCHC 32.6, RDW Std Deviation 51.6 H, RDW Coeff of Kaycee 16.9 H, Plt Count 3 17, MPV 9.2, Immature Gran % (Auto) 0.700, Neut % (Auto) 70.9 H, Lymph % (Auto) 18.0 L, [place] % (Auto) 6.1, Eos % (Auto) 3.2, Baso % (Auto) 1.1 H, Absolute Neuts (auto) 8.8 H, Absolute Lymphs (auto) 2.24, Nucleated RBC % 0 01/13/21 01:32: Sodium 131 L, Potassium 4.6, Chloride 100, Carbon Dioxide 21.0, Anion Gap 10, BUN 7, Creatinine 1.08 H, Estim Creat Clear Calc 48.69, Est GFR (MDRD) Af Amer 68, Est GFR (MDRD) Non-Af 56 L, BUN/Creatinine Ratio 6.5 L, Glucose 234 H, Calcium 9.5, Total Bilirubin 0.40, AST 16, ALT 25, Alkaline Phosphatase 179 H, Troponin I High Sens 8, Total Protein 7.2, Albumin 3.1 L, Globulin 4.1, Albumin/Globulin Ratio 0.8 L 01/13/21 01:32: Lactic Acid 4.2 H* 01/13/21 02:25: Urine Color Yellow, Urine Clarity Clear, Urine pH 5.0, Ur Specific Gamaliel 1.015, Urine Protein 30 H, Urine Glucose (UA) Normal, Urine Ketones Negative, Urine Occult Blood Negative, Urine Nitrite Positive H, Urine Bilirubin Negative, Urine Urobilinogen Normal, Ur Leukocyte Esterase 100 H, Urine RBC 0 SEEN, Urine WBC 10-25 SEEN, Ur Squamous Epith Cells 0-5 SEEN, Urine Bacteria 3+, Hyaline Casts 0-5 SEEN, Urine Mucus 0 SEEN Micro: Microbiology 01/13/21 03:25 Nasal Secretion SARS-CoV-2 Antigen (Rapid) - Final Radiology Impression Chest X-Ray 01/13/21 01:42 IMPRESSION: Degenerative changes, as described above. No demonstrated acute cardiopulmonary process. Electronically Signed: Ana Kasper MD at 2:59 EST Tel , Service support , Tibia/Fibula X-Ray 01/13/21 01:42 IMPRESSION: There is nondisplaced fracture in the proximal metaphysis of the fibula. Electronically Signed: Ana Kasper MD at 2:55 EST Tel , Service support , Assessment & Plan Assessment/Plan (1) Septic shock: (2) Closed fracture of proximal end of fibula: QUALIFIERS: Encounter type: initial encounter Fracture morphology: other fracture Laterality: left Qualified Code(s): S82.832A - Other fracture of upper and lower end of left fibula, initial encounter for closed fracture (3) UTI (urinary tract infection): QUALIFIERS: Urinary tract infection type: acute cystitis Hematuria presence: without hematuria Qualified Code(s): N30.00 - Acute cystitis without hematuria PLAN: Septic shock secondary to acute cystitis Differential diagnoses include hypovolemia. Patient with SIRS criteria: Respiratory rate more than 20; systolic blood pressure less than 90; white count of 12.4. qSOFA: 2 (systolic blood pressure of less than 90; respiratory rate of 22 and above) Lactic acidosis of 4.2. Abnormal urinalysis. Chest x-ray independently interpreted did not show any acute cardiopulmonary process. I agree radiologist interpretation Source of infection: Urine Patient with a history of C. difficile and reports diarrhea. C. difficile PCR ordered. Of note patient lactic acidosis could also be due to hypovolemia. However will treat as septic shock as above. Patient responded to IV fluids. Trend lactic acid. Urine culture ordered at the emergency department; follow. Blood culture ordered emergency department; follow. Urine culture on 12/24/2019 showed no growth. Urine culture on 11/20/2018 showed lactobacillus species. Mixed gram-positive organisms. Received Merrem at the emergency department secondary to multiple allergies. Will start patient on ciprofloxacin. Closed fracture of proximal end of fibula Radiologist impression of left tibia and fibula x-ray: There is nondisplaced fracture in the proximal metaphysis of the fibula. Actual x-ray was independently interpreted and agree radiologist interpretation. Resume home [place] Emergency plan doctor discussed the case with orthopedic doctor who recommended a splint to left lower extremity. Splint was placed accordingly. Weightbearing as tolerated per orthopedic recommendations. PT and OT to work with patient. Diabetes mellitus Patient with hyperglycemia on presentation Patient previously prescribed insulin that she reports she is noncompliant with. Start patient on basal and correction scale insulin. Accu-Chek QACHS with correction scale insulin ordered. History of PE: Continue Eliquis. DVT prophylaxis: Eliquis as above Charges/Coding Visit Charges Inpatient E&M: 21110 Init Hosp L3
[2021-01-13] MEDS: Acetaminophen 500 MG Tablet 1000 MG PO (04:56)
[2021-01-13 05:48] LABS: Reflex Lactate? Y
[2021-01-13 08:02] LABS: Lactic Acid 1.1 mmol/L (0.4-1.9)
[2021-01-13] MEDS: HYDROcodone Bitartrate/Apap 5/325 Tablet PO ×3 (08:19→20:39)
[2021-01-13] MEDS: Insulin Lispro 100 UNIT/ML INSULN.PEN SC ×2 (08:27→12:02)
[2021-01-13] MEDS: 0.9% Normal Saline 1,000 ML 75 ML IV ×2 (08:30→20:59)
--- NOTE | 2021-01-13 08:44 | CON.PCM.CC_ITS ---
Assessment & Plan Assessment/Plan (1) Closed fracture of proximal end of fibula: QUALIFIERS: Encounter type: initial encounter Fracture morphology: other fracture Laterality: left Qualified Code(s): S82.832A - Other fracture of upper and lower end of left fibula, initial encounter for closed fracture (2) UTI (urinary tract infection): QUALIFIERS: Urinary tract infection type: acute cystitis Hematuria presence: without hematuria Qualified Code(s): N30.00 - Acute cystitis without hematuria (3) Schizophrenia: (4) Pulmonary hypertension: (5) Morbid obesity: (6) Stage 2 moderate COPD by GOLD classification: (7) RACHEL (obstructive sleep apnea): PLAN: RECOMMENDATIONS: 1. Continue empiric antibiotics pending cultures 2. Encourage incentive spirometer and out of bed as tolerated 3. Walking oximetry prior to discharge 4. Okay to leave the intensive care unit 5. Hemodynamically stable on room air. Will sign off from a critical care perspective IMPRESSIONS: 1. Sepsis secondary to UTI Patient with elevated lactate and a qSOFA score of 2 secondary to hypotension and tachypnea. Patient was responsive to fluid resuscitation. No pressors have been required. Patient does have a history of C. difficile in the past and has had some intermittent diarrhea. Testing is pending at this time. Okay to leave the intensive care unit. Narrow antibiotic spectrum once cultures are resulted. Otherwise, patient hemodynamically stable on room air. Will sign off from a critical care perspective 2. Nondisplaced proximal fibular fracture Patient with multiple fractures in the last year. This case was reportedly discussed with orthopedic surgeon who stated that there was no need for surgical intervention. Splint was placed accordingly. Patient may need to be evaluated by PT/OT 3. Stage II COPD/RACHEL?noncompliant/asthma/pulmonary hypertension Do not believe patient is currently in exacerbation of COPD. Okay to use therapeutic substitution for baseline medications. Patient should have a walking oximetry prior to discharge. Patient will follow up with pulmonary as previously scheduled. 4. Morbid obesity/chronic pain syndrome/diabetes mellitus/history of PE/schizophrenia/history of gastric bypass/tobacco abuse Complicates care, management, recovery and prognosis. Okay to continue with baseline medications from my perspective. Patient was once again encourage d to quit smoking, but remains precontemplative. Will have to watch blood sugars closely given possible infectious complications with UTI. HPI Consult Data Date of Consult: 01/13/21 HPI Narrative HPI Narrative: TALAT HAN is a 55 F, with past medical history listed below and well-known to me from the outpatient office, who presents to [facility] on 01/13/2021 secondary to fall. Patient reportedly had gotten up to get something to drink, felt lightheaded and fell. Patient had reported pain in her left knee/anterior tibia area. Patient does have a recent history of bilateral ankle fractures. In the ER, patient was afebrile, but hypotensive as low as 68/52. Patient was saturating well on room air and was tachypneic to 25 breaths/min. Laboratory work-up showed a white blood cell count of 12.4, hemoglobin of 15.1 and a platelet count of 317. Creatinine was slightly elevated at 1.08, but BUN was only 7. Lactate was noted to be 4.2 and albumin was slightly low at 3.1. Other chemistries were unremarkable. UA did show 3+ bacteria with 10-25 WBCs, leukocyte esterase and nitrites. Chest x-ray was unremarkable, but a leg x-ray showed a nondisplaced fracture of the proximal fibula. The patient was given 30 cc/kg of IV fluids, empiric antibiotics following cultures and sent to the intensive care unit for further evaluation. Since being in the intensive care unit, patient has been normotensive. Patient is not having any symptoms on my evaluation. Patient denied any fevers or chills, but did report feeling like I am coming down with something. Patient reports that she did not have decreased p.o. intake. Patient is on chronic pain medications and denied taking any extra pain medications for antihypertensives in the last 48 hours. Patient states her blood sugars have been relatively controlled for me. Review of systems otherwise negative from a constitutional, HEENT, respiratory, cardiovascular, GI, genitourinary, musculoskeletal, skin, neurologic, psychiatric and hematologic system unless stated above. COUNTS INCLUDE 234 BEDS AT THE [facility] Medical History Anemia Asthma Benign essential hypertension Bleeding tendency Chest pain Chronic cough Chronic narcotic use COPD (chronic obstructive pulmonary disease) Current use of insulin Delayed surgical wound healing Diabetes Emphysema of lung Gastroesophageal reflux disease High cholesterol Hip osteoarthritis History of pulmonary embolism History of stress test Hypertension Irregular heart beat Irritable bowel Morbid obesity with BMI of 45.0-49.9, adult Myocardial infarct On home oxygen therapy RACHEL (obstructive sleep apnea) Pancreatitis Peptic ulcer Schizoaffective disorder Sleep apnea Smoker Spinal stenosis of lumbar region at multiple levels Thyroid nodule Tobacco abuse Ulcer Vitamin D deficiency Home Medications atorvastatin 80 mg PO QHS 08/22/15 [History Last Taken 12/17/19 22:26] nitroglycerin 0.4 mg SL PRN PRN 11/08/16 [History Last Taken 11/01/17 0.4 MG] pregabalin 75 mg PO TID 03/08/18 [History Last Taken 12/18/19 14:40] risperidone 4 mg PO QHS 03/08/18 [History Last Taken 12/17/19 22:27] tizanidine 6 mg PO TID PRN PRN 03/08/18 [History Last Taken 12/18/19 14:37] trazodone 200 mg PO QHS 03/08/18 [History Last Taken 12/17/19 22:26] furosemide 20 mg PO DAILY 11/20/18 [History Last Taken 12/16/19] lisinopril 20 mg PO QHS 11/20/18 [History Last Taken 12/17/19 22:26] mirabegron 25 mg PO DAILY 11/20/18 [History Last Taken 12/18/19 08:47] apixaban 5 mg PO BID 05/02/19 [History Last Taken 12/18/19 10:22] buspirone 30 mg tablet 30 mg PO BID tab 06/27/19 [History Last Taken 12/18/19 08:46] sucralfate 1 gram tablet 1 g PO QACHS 06/27/19 [History Last Taken 12/18/19 16:13] tiotropium bromide 2.5 mcg/actuation mist for inhalation 2 puff INHALATION DAILY #4 g 09/30/19 [Rx Last Taken 12/18/19 13:02] montelukast 10 mg tablet 10 mg PO QHS #30 tab 10/30/19 [Rx Last Taken 12/17/19 22:26] acidophilus-pectin, citrus 2 tab PO BID 12/16/19 [History Last Taken 12/18/19 10:25] insulin glargine 40 units SC BID 12/18/19 [History Last Taken 12/18/19 10:25] dicyclomine 20 mg PO TIDAC #10 cap 03/16/20 [Rx Last Taken Unknown] metoclopramide HCl 10 mg PO 4X/DAY PRN #20 tab 03/16/20 [Rx Last Taken Unknown] clopidogrel 75 mg PO DAILY 07/31/20 [History Last Taken Unknown] insulin lispro [Humalog KwikPen Insulin] 10 unit SUBCUT TIDAC #0 ml 08/11/20 [Rx Last Taken Unknown] sennosides-docusate sodium [Stool Softener-Stimulant Laxat] 2 tab PO BID PRN PRN #0 tab 08/11/20 [Rx Last Taken Unknown] hydrocodone-acetaminophen 1 tab PO Q6H PRN PRN 10/03/20 [History Last Taken Unknown] potassium chloride [K-Tab] 40 meq PO DAILY #60 tab 10/05/20 [Rx Last Taken Unknown] Advair HFA 2 puff INHALATION BID 11/14/20 [History Last Taken Unknown] albuterol sulfate 2 puff IH Q4H PRN PRN 11/14/20 [History Last Taken Unknown] amlodipine 10 mg PO DAILY 11/14/20 [History Last Taken Unknown] escitalopram oxalate 20 mg PO DAILY 11/14/20 [History Last Taken Unknown] fluticasone propionate 1 spray INTRANASAL BID 11/14/20 [History Last Taken Unknown] loperamide [Imodium A-D] 2 mg PO Q6H PRN 11/14/20 [History Last Taken Unknown] metoprolol succinate 50 mg PO DAILY 11/14/20 [History Last Taken Unknown] pantoprazole 40 mg PO BID 11/14/20 [History Last Taken Unknown] promethazine 25 mg PO BID PRN PRN 11/14/20 [History Last Taken Unknown] vancomycin 125 mg PO Q6H 7 Days #28 cap 11/27/20 [Rx Last Taken Unknown] hydrocodone-acetaminophen 1 tab PO Q6H PRN 3 Days #12 tab 12/02/20 [Rx Last Taken Unknown] ondansetron 4 mg PO Q6H PRN #10 tab 12/02/20 [Rx Last Taken Unknown] lamotrigine 25 mg tablet 25 mg PO DAILY 01/11/21 [History Last Taken Unknown] Allergy/AdvReac Type Severity Reaction Status Date / Time amoxicillin Allergy Itching Verified 01/13/21 01:24 erythromycin base Allergy Unknown Verified 01/13/21 01:24 methadone Allergy Itching Verified 01/13/21 01:24 metolazone Allergy Unknown Verified 01/13/21 01:24 Penicillins Allergy Hives Verified 01/13/21 01:24 Sulfa (Sulfonamide Allergy Hives Verified 01/13/21 01:24 Antibiotics) clarithromycin [From Biaxin] AdvReac Nausea Verified 01/13/21 01:24 ibuprofen AdvReac 3 BLEEDING Verified 01/13/21 01:24 ULCERS morphine AdvReac HEADACHE Verified 01/13/21 01:24 oxycodone [From Percocet] AdvReac Itching Verified 01/13/21 01:24 Family History Mother Heart disease Cancer ovarian Father Hypertension Arthritis Hyperlipemia Grandmother Breast cancer Heart disease Grandfather Heart disease Surgical History H/O cardiac catheterization H/O heart artery stent History of appendectomy history of carpal tunnel release left wrist History of carpal tunnel surgery of left wrist History of cholecystectomy History of gastric bypass History of PTCA History of right ankle surgery history of right hip surgery History of tonsillectomy Social History household members: none Smoking Status: Current every day smoker tobacco type: cigarettes Tobacco: How many years used: 39 alcohol intake: never substance use type: does not use caffeine: No what type of physical activity do you participate in: none ROS ROS Narrative See HPI Physical Exam Const alert, oriented x3 and no apparent distress General Appearance: cooperative, well kempt and well developed Orientation / Consciousness: awake, oriented to person, oriented to place and oriented to time Nutritional Appearance: morbidly obese HEENT normocephalic, head/scalp atraumatic and moist oral mucous membranes Head and Scalp: normocephalic Eyes PERRL, EOMs intact bilaterally and conjunctivae normal Neck nuchal rigidity, supple, no JVD, thyroid normal and no carotid bruits General: trachea midline Resp normal respiratory effort, no retractions, no use of accessory muscles and clear to auscultation bilaterally Auscultation: Negative for rales, rhonchi or wheezes Cardio regular rate, regular rhythm, S1 normal heart sound, S2 normal heart sound, no murmurs, no rub and no gallops GI normal to inspection, nondistended, normoactive bowel sounds, soft to palpation, non-tender and non-distended Extremity Extremity Narrative: Leg in immobilizer General Extremity: edema; Negative for clubbing or cyanosis Skin no rashes or lesions noted General Skin Exam: no breakdown Neuro oriented x3, CN's II-XII intact bilaterally, no focal motor deficits and no sensory deficits noted Sensorium / Orientation: awake and alert Speech: speech normal Psych thought process normal and affect normal Lab / Micro Data Result Diagrams: 01/13/21 01:32 01/13/21 01:32 Labs: Laboratory Results - last 24 hr 01/13/21 01:32: WBC 12.4 H, RBC 5.45 H, Hgb 15.1 H, Hct 46.3, MCV 85.0, MCH 27.7, MCHC 32.6, RDW Std Deviation 51.6 H, RDW Coeff of Kaycee 16.9 H, Plt Count 317, MPV 9.2, Immature Gran % (Auto) 0.700, Neut % (Auto) 70.9 H, Lymph % (Auto) 18.0 L, Weld % (Auto) 6.1, Eos % (Auto) 3.2, Baso % (Auto) 1.1 H, Absolute Neuts (auto) 8.8 H, Absolute Lymphs (auto) 2.24, Nucleated RBC % 0 01/13/21 01:32: Sodium 131 L, Potassium 4.6, Chloride 100, Carbon Dioxide 21.0, Anion Gap 10, BUN 7, Creatinine 1.08 H, Estim Creat Clear Calc 48.69, Est GFR (MDRD) Af Amer 68, Est GFR (MDRD) Non-Af 56 L, BUN/Creatinine Ratio 6.5 L, Glucose 234 H, Calcium 9.5, Total Bilirubin 0.40, AST 16, ALT 25, Alkaline Phosphatase 179 H, Troponin I High Sens 8, Total Protein 7.2, Albumin 3.1 L, Globulin 4.1, Albumin/Globulin Ratio 0.8 L 01/13/21 01:32: Lactic Acid 4.2 H* 01/13/21 02:25: Urine Color Yellow, Urine Clarity Clear, Urine pH 5.0, Ur Specific Worthington 1.015, Urine Protein 30 H, Urine Glucose (UA) Normal, Urine Ketones Negative, Urine Occult Blood Negative, Urine Nitrite Positive H, Urine Bilirubin Negative, Urine Urobilinogen Normal, Ur Leukocyte Esterase 100 H, Urine RBC 0 SEEN, Urine WBC 10-25 SEEN, Ur Squamous Epith Cells 0-5 SEEN, Urine Bacteria 3+, Hyaline Casts 0-5 SEEN, Urine Mucus 0 SEEN 01/13/21 07:25: Lactic Acid 1.1 Micro: Microbiology 01/13/21 03:25 Nasal Secretion SARS-CoV-2 Antigen (Rapid) - Final Radiology Impression Chest X-Ray 01/13/21 01:42 IMPRESSION: Degenerative changes, as described above. No demonstrated acute cardiopulmonary process. Electronically Signed: Ana Kasper MD at 2:59 EST Tel , Service support , Tibia/Fibula X-Ray 01/13/21 01:42 IMPRESSION: There is nondisplaced fracture in the proximal metaphysis of the fibula. Electronically Signed: Ana Kasper MD at 2:55 EST Tel , Service support , Charges/Coding Visit Charges Inpatient E&M: 12295 Init Hosp L3
[2021-01-13 08:56] LABS: Bedside Glucose 182 mg/dL (70-110)
[2021-01-13] MEDS: guaiFENesin 10 ML UDC (200MG/10ML) PO ×2 (10:05→20:41)
[2021-01-13] MEDS: Ciprofloxacin 400 MG/200 ML BAG 200 MG IV ×2 (10:05→20:36)
[2021-01-13] MEDS: oxyCODONE 5 MG Tablet PO ×3 (10:07→22:22)
--- NOTE | 2021-01-13 10:50 | CASEMGMT ---
Addendum entered by Mumtaz Valdez 01/13/21 15:02: PT/OT notes have been reviewed. Pt very painful and only able to ambulate 12 ft w/CGA or assist of 1. RN CM to room to talk w/pt. Pt states she does have some reservations about returning home, but states, I will not go to a alf. Pt states she would be interested in TCU only. RN ANTONIO informed her insurance benefits, acceptance, and bed availability would need to be determined to see if TCU would be an option. Pt voices understanding. Naya WADE, made aware of pt's interest in TCU. Original Note: RN CM [employer]AT [employer]KER MACHINE CM to room to meet with patient for initial transition planning/care coordination assessment. PAMELA ALVAREZ introduced self and role at [facility]. Pt voices understanding and consents to assessment at this time. Pt resting in bed in no distress at this time. Pt is A/O at this time and answers all questions appropriately. Care providers, pharmacy, and demographics verified/updated at this time. PCP: Dr Taylor Specialists: Dr Willoughby--pulmonology; [facility]--hematology, for low iron Preferred Pharmacy: [facility] Retail pharmacy for this admission. Usually goes to [facility] for short term medications. [place] for penitentiary. Insurance: [email or web address] Prescription Benefit: yes LW/HPOA: Pt has a LW/DPOA on file at [facility]. HPOA is her sister Jessica Payan. LNOK: Jessiac Payan (POA), sister. Balbina GregroioMallory, sister, Living Arrangements: Pt lives alone in an apt with elevator to get to her floor and no steps to enter. Pt states she sponge bathes at home but this is difficult at times and could use some assistance w/bathing. Sister, Jessica, assists w/laundry and some housekeeping. Neighbor, Earl, gets her groceries for her. Pt manages her own medications and appts. Last admission pt stated she would sometimes forget to take her meds. Today pt states, I don't forget to take them, I just don't take them sometimes. Pt receives MOW--she gets 21 meals delivered weekly. Pt states she qualifies for aides thru [facility] 4 hrs/day, 5 days a week, but currently does not have any d/t staffing issues. Pt has had [facility] in the past and [facility] referral was made last admission per pt's request, but per [facility] note 12/08/20, they were unable to reach pt. RN ANTONIO inquired of pt about same. She states she does not feel she needs them at this time. Transportation: NeighborEarl, transports her to medical appts and she denies concerns with transportation. DME: Pt reports she has rollator, walker knee rover, electric w/c, RTS, shower seat, handrail in the bathroom and O2 at 3L at HS through [employer], nebulizer, [employer] Harshil glucometer, and medical alert button. Pt states she mostly uses her electric w/c and furniture walks. HHC/SNF: Hx of [facility] and [facility] but does not remember name of agency. Pt w/had fallen @ home and has lt fibula fx. Pt to wear splint and WBAT. Pt states does not want to go to SNF, that she wishes to return home and feels she will be able to manage safely. Pt would like [facility]. She prefers [facility], but states they are no longer in network w/her insurance. TC was placed to Octro @ [facility] and he confirms they are not in network w/pt [facility] plan. Pt was provided with list of local [facility] providers including quality and resource use data. She states she does not have another preference. PLAN: Home w/HHC. Pt requests SN, PT/OT, and an aide. No referral made at this time, as PT/OT evals are pending. Pt informed PAMELA ALVAREZ would talk w/her again after evals completed, to ensure she still wishes to return home and if so, referral will be made at that time. Nyasia BERKOWITZ RN, CM
[2021-01-13 12:45] LABS: Bedside Glucose 161 mg/dL (70-110)
--- NOTE | 2021-01-13 14:17 | CASEMGMT ---
Social Work Phone call to [facility] to check on services. MAURO spoke with coverage staff who state referral was made to [facility] by [facility] in November. [facility] reached out to pt to discuss program options and pt declined services at that time. ROGER Caputo
--- NOTE | 2021-01-13 15:21 | CASEMGMT ---
Social Work Per PAMELA PandyaCM pt states she is willing to go to TCU at time of discharge but is not willing to go to free standing nursing facility. left for [facility] with referral. SW will await determination from TCU. ROGER Caputo
[2021-01-13] MEDS: Pregabalin 75 MG Capsule PO (20:36)
[2021-01-13] MEDS: RisperiDONE 2 MG Tablet 4 MG PO (20:37)
[2021-01-13] MEDS: Calcium Carbonate 500 MG Tablet PO (20:40)
[2021-01-13] MEDS: busPIRone 15 MG TABLET 30 MG PO (20:41)
[2021-01-13] MEDS: Atorvastatin Calcium 80 MG Tablet PO (20:42)
[2021-01-13] MEDS: traZODone 100 MG Tablet 200 MG PO (20:42)
[2021-01-13] MEDS: Clopidogrel Bisulfate 75 MG Tablet PO (20:45)
[2021-01-13] MEDS: Ondansetron 4 MG/2 ML Vial IV (20:57)
[2021-01-13 21:20] LABS: Bedside Glucose 147 mg/dL (70-110)
[2021-01-13 21:25] LABS: Bedside Glucose 149 mg/dL (70-110)
[2021-01-14 03:00] VITALS: BP 124/81; PULSE 98; RESP 16; TEMP 36.6; O2SAT 97
[2021-01-14] MEDS: HYDROcodone Bitartrate/Apap 5/325 Tablet PO ×4 (03:54→21:54)
[2021-01-14 04:02] LABS: Absolute Lymphocyte Count 1.81 X10^3/uL (0.83-4.51); Basophil# 0.11 X10^3/uL; Basophil% 0.9 % (0-1); Eosinophil# 0.24 X10^3/uL; Hematocrit 41.2 % (37-47); Hemoglobin 13.2 g/dL (12.0-15.0); Lymphocyte # 1.81 X10^3/ul (0.83-4.51); Lymphocyte % 14.9 % (19-41); Mean Corpuscular Hgb 27.6 pg (27.0-32.0); Monocyte# 0.95 X10^3/uL; Monocyte% 7.8 % (0-10); NRBC Flagged by Analyzer 0 % (0-5); Neutrophil # 9.01 X10^3/uL (2.7-7.7); Neutrophil % 74.2 % (47-70); Platelet Count 246 K/mm3 (150-450); RBC Distribution Width CV 17.1 % (11.6-14.6); RBC Distribution Width SD 52.4 fl (35.1-43.9); Red Blood Count 4.79 M/mm3 (4.2-5.4); White Blood Count 12.2 K/mm3 (4.4-11.0)
[2021-01-14 04:14] LABS: Anion Gap 3 (5-15); BUN 4 mg/dL (7-18); BUN/Creat Ratio 6.1 RATIO (10-20); Calcium,Total 9.4 mg/dL (8.5-10.1); Chloride 109 mmol/L (98-107); Creatinine, Serum 0.65 mg/dL (0.55-1.02); EST Glomerular Filtration Rate 100 mL/min (>60); Est Glom Filt Rate - Afr Amer 121 mL/min (>60); Glucose 129 mg/dL (74-106); Potassium 4.1 mmol/L (3.5-5.1); Sodium Level 138 mmol/L (136-145)
[2021-01-14] MEDS: oxyCODONE 5 MG Tablet PO ×3 (06:15→18:25)
[2021-01-14] MEDS: Pregabalin 75 MG Capsule PO ×3 (06:39→21:57)
[2021-01-14 08:55] LABS: Bedside Glucose 174 mg/dL (70-110)
[2021-01-14] MEDS: Insulin Lispro 100 UNIT/ML INSULN.PEN SC (08:59)
[2021-01-14] MEDS: Insulin Lispro 100 UNIT/ML INSULN.PEN 10 UNIT SC ×3 (08:59→17:39)
[2021-01-14 09:00] VITALS: BP 138/76; PULSE 101; RESP 16; TEMP 36.6; O2SAT 97
[2021-01-14] MEDS: Escitalopram Oxalate 20 MG Tablet PO (09:01)
[2021-01-14] MEDS: busPIRone 15 MG TABLET 30 MG PO ×2 (09:02→21:53)
[2021-01-14] MEDS: lamoTRIgine 150 MG Tablet PO (09:02)
[2021-01-14] MEDS: Ciprofloxacin 400 MG/200 ML BAG 200 MG IV ×2 (09:47→21:53)
--- NOTE | 2021-01-14 09:57 | PCM.PN.HOSP ---
Subjective Subjective Doing well today, blood pressures are stable she is complaining of some right knee pain and she does have some bruising on her lateral knee Objective Data Objective Data Vital Signs: Vital Signs Temp Pulse Resp BP Pulse Ox 97.8 F 98 16 124/81 H 97 01/14/21 03:00 01/14/21 03:00 01/14/21 03:00 01/14/21 03:00 01/14/21 03:00 Oxygen Flow Rate (L/min) 4 Oxygen Delivery Method Room Air Weight: 224 lb 6.889 oz Body Mass Index (BMI) 39.7 Intake & Output: Intake and Output for Last 24 Hours 01/13/21 01/14/21 01/15/21 03:59 03:59 03:59 Intake Total 1000 / 1000 6720.85 / 6720.85 Output Total 3125 / 3125 Balance 1000 / 1000 3595.85 / 3595.85 Lab / Micro Data Result Diagrams: 01/14/21 03:50 01/14/21 03:50 Labs: Laboratory Results - last 24 hr 01/13/21 12:00: POC Glucose 161 H 01/13/21 17:11: POC Glucose 147 H 01/13/21 21:09: POC Glucose 149 H 01/14/21 03:50: WBC 12.2 H, RBC 4.79, Hgb 13.2, Hct 41.2, MCV 86.0, MCH 27.6, MCHC 32.0, RDW Std Deviation 52.4 H, RDW Coeff of Kaycee 17.1 H, Plt Count 246, MPV 9.0, Immature Gran % (Auto) 0.200, Neut % (Auto) 74.2 H, Lymph % (Auto) 14.9 L, Ashley % (Auto) 7.8, Eos % (Auto) 2.0, Baso % (Auto) 0.9, Absolute Neuts (auto) 9.0 H, Absolute Lymphs (auto) 1.81, Nucleated RBC % 0 01/14/21 03:50: Sodium 138, Potassium 4.1, Chloride 109 H, Carbon Dioxide 26.0, Anion Gap 3 L, BUN 4 L, Creatinine 0.65, Estim Creat Clear Calc 80.90, Est GFR (MDRD) Af Amer 121, Est GFR (MDRD) Non-Af 100, BUN/Creatinine Ratio 6.1 L, Glucose 129 H, Calcium 9.4 01/14/21 08:54: POC Glucose 174 H Micro: Microbiology 01/13/21 10:10 Stool C. difficile DNA Amplification - Final 01/13/21 03:25 Nasal Secretion SARS-CoV-2 Antigen (Rapid) - Final Physical Exam Const alert, oriented x3 and no apparent distress General Appearance: cooperative HEENT normocephalic and moist oral mucous membranes Eyes PERRL, EOMs intact bilaterally and conjunctivae normal Neck supple and no JVD Resp normal respiratory effort, no retractions, no use of accessory muscles and clear to auscultation bilaterally Auscultation: Negative for crackles, rales, rhonchi or wheezes Cardio regular rate, regular rhythm, S1 normal heart sound, S2 normal heart sound and no murmurs GI soft to palpation, non-tender and non-distended; Negative for hepatosplenomegaly Extremity no clubbing, cyanosis or edema Skin Skin Narrative: Ecchymosis of the right lateral knee, with some tenderness to palpation. Left leg is in a brace for her distal fibula fracture Neuro no focal motor deficits and no sensory deficits noted Psych affect normal Appearance: appropriate Assessment & Plan Assessment/Plan (1) Septic shock: (2) Closed fracture of proximal end of fibula: QUALIFIERS: Encounter type: initial encounter Fracture morphology: other fracture Laterality: left Qualified Code(s): S82.832A - Other fracture of upper and lower end of left fibula, initial encounter for closed fracture (3) UTI (urinary tract infection): QUALIFIERS: Urinary tract infection type: acute cystitis Hematuria presence: without hematuria Qualified Code(s): N30.00 - Acute cystitis without hematuria PLAN: 1. Septic shock secondary to acute cystitis with weakness and a fall leading to a closed fracture of the proximal fibula on the left -Lactic acid is resolved, urine cultures are pending -Continue with antibiotics and IV fluids -Orthopedic surgery was contacted by the ED physician and at that time they recommended a brace -She will be weightbearing as tolerated, can resume home narcotics and medications -PT/OT for evaluation and possible discharge recommendations placement -We will obtain an x-ray of the right knee secondary to pain 2. DM2 -We will continue to monitor blood sugar, will continue with her home insulin and make adjustments as necessary based on her blood sugars -Accu-Cheks AC at bedtime 3. HTN/HLD/CAD status post stent -Blood pressure stable -Continue with her Eliquis as well as her aspirin and her Plavix -Continue with Lipitor -We will hold her lisinopril and her Lasix secondary to possible ZUHAIR -Echo from 2019 EF of 60%, however is a challenging study and an RV systolic pressure could not be estimated 4. Stage II COPD/RACHEL/asthma/pulmonary hypertension -We will monitor, she will need to have a walking pulse ox prior to discharge -Follow-up with pulmonology as an outpatient 5. GERD/history of gastric bypass -Stable -Continue with Tums, possibly takes Carafate at home if necessary can add on here 6. History of PE -Continue with Eliquis 7. History of schizophrenia -Continue with her home medications DVT: Rachelqubrodie Charges/Coding Visit Charges Inpatient E&M: 07811 Subs Hosp L2
[2021-01-14] MEDS: 0.9% Normal Saline 1,000 ML 75 ML IV ×2 (11:02→18:40)
[2021-01-14 12:10] LABS: Bedside Glucose 88 mg/dL (70-110)
[2021-01-14] MEDS: guaiFENesin 10 ML UDC (200MG/10ML) PO (12:12)
--- NOTE | 2021-01-14 13:38 | CASEMGMT ---
Social Work SW received return call from [facility] in TCU and they are unable to accept pt. SW met with pt and informed. SW provided list of SNF providers including quality and resource use data and consistent with the patient's preferred geographic region, medical needs and insurance network. Pt preferred provider is [facility]. Phone call to [facility] and [facility] does have beds available. Referral faxed, will await determination of acceptance. ROGER Caputo
--- NOTE | 2021-01-14 14:30 | RAD_ITS ---
STUDY: X-RAY - RIGHT KNEE REASON FOR EXAM: Right knee pain, right knee injury. TECHNIQUE: 3 view(s) of the knee. COMPARISON: None. FINDINGS: There is osteopenia. There is intramedullary scarring from previous screw fixation of the distal femur without demonstrated fracture. Normal visualized proximal tibia and fibula. Normal proximal tibiofibular articulation. Normal medial femorotibial compartment. Normal lateral femorotibial compartment. There is mild joint space narrowing of the patellofemoral articulation. There is vascular calcification. RAD/Knee 3 Views IMPRESSION: Osteopenia without demonstrated fracture of the right knee. Mild arthrosis of the patellofemoral articulation. Electronically Signed: Curtis Srivastava MD at 15:01 EST Tel , Service support ,
--- NOTE | 2021-01-14 15:28 | PCS.PANDOC ---
PANDEMIC DOCUMENTATION INITIATED: Date: 10/19/2020 Time: 190
[2021-01-14 15:43] VITALS: BP 107/63; PULSE 99; RESP 16; TEMP 36.9; O2SAT 89
[2021-01-14] MEDS: Pantoprazole Sodium 20 MG Tablet PO (16:06)
[2021-01-14 16:40] LABS: Bedside Glucose 109 mg/dL (70-110)
[2021-01-14] MEDS: Acetaminophen 325 MG Tablet 650 MG PO (18:26)
[2021-01-14 20:33] VITALS: BP 143/86; PULSE 94; RESP 17; TEMP 36.3; O2SAT 95
[2021-01-14] MEDS: RisperiDONE 2 MG Tablet 4 MG PO (21:52)
[2021-01-14] MEDS: traZODone 100 MG Tablet 200 MG PO (21:53)
[2021-01-14] MEDS: Atorvastatin Calcium 80 MG Tablet PO (21:53)
[2021-01-14 22:01] LABS: Bedside Glucose 87 mg/dL (70-110)
[2021-01-15] VITALS (10 sets, daily range): BP systolic 95–143; BP diastolic 58–92; PULSE 61–104; RESP 15–24; TEMP 36.6–36.8; O2SAT 93–98
[2021-01-15] MEDS: oxyCODONE 5 MG Tablet PO ×3 (03:27→16:15)
[2021-01-15] MEDS: Albuterol 2.5 MG/3 ML VIAL.NEB. INHALATION ×4 (03:46→18:53)
[2021-01-15] MEDS: Pregabalin 75 MG Capsule PO ×3 (05:30→20:35)
[2021-01-15 07:05] LABS: Absolute Lymphocyte Count 1.62 X10^3/uL (0.83-4.51); Basophil# 0.09 X10^3/uL; Basophil% 0.8 % (0-1); Eosinophils% 2.5 % (0-5); Hematocrit 39.7 % (37-47); Lymphocyte # 1.62 X10^3/ul (0.83-4.51); Lymphocyte % 13.6 % (19-41); Mean Corp Hgb Conc 32.7 g/dL (32-36); Mean Corpuscular Hgb 28.2 pg (27.0-32.0); Mean Corpuscular Volume 86.1 fL (81-99); Mean Platelet Vol. 8.8 fl (6.2-12.0); Monocyte# 0.89 X10^3/uL; Monocyte% 7.5 % (0-10); NRBC Flagged by Analyzer 0 % (0-5); Neutrophil # 8.98 X10^3/uL (2.7-7.7); Neutrophil % 75.3 % (47-70); Platelet Count 217 K/mm3 (150-450); RBC Distribution Width CV 17.2 % (11.6-14.6); RBC Distribution Width SD 54.4 fl (35.1-43.9); Red Blood Count 4.61 M/mm3 (4.2-5.4); White Blood Count 11.9 K/mm3 (4.4-11.0)
[2021-01-15 07:20] LABS: Anion Gap 4 (5-15); BUN 4 mg/dL (7-18); BUN/Creat Ratio 7.6 RATIO (10-20); Calcium,Total 9.1 mg/dL (8.5-10.1); Chloride 108 mmol/L (98-107); Creatinine, Serum 0.53 mg/dL (0.55-1.02); EST Glomerular Filtration Rate 127 mL/min (>60); Est Glom Filt Rate - Afr Amer 154 mL/min (>60); Estimated Creatinine Clearance 99.21 ml/min; Glucose 126 mg/dL (74-106); Potassium 4.1 mmol/L (3.5-5.1); Sodium Level 137 mmol/L (136-145)
[2021-01-15] MEDS: Budesonide Respules 0.5 MG/2 ML AMPUL.NEB. INHALATION ×2 (07:23→18:53)
[2021-01-15] MEDS: 0.9% Normal Saline 1,000 ML 75 ML IV (09:00)
[2021-01-15] MEDS: Acetaminophen 325 MG Tablet 650 MG PO (09:02)
[2021-01-15] MEDS: busPIRone 15 MG TABLET 30 MG PO ×2 (09:04→20:29)
[2021-01-15] MEDS: Pantoprazole Sodium 20 MG Tablet PO (09:04)
[2021-01-15] MEDS: Escitalopram Oxalate 20 MG Tablet PO (09:04)
[2021-01-15] MEDS: Clopidogrel Bisulfate 75 MG Tablet PO (09:04)
[2021-01-15] MEDS: lamoTRIgine 150 MG Tablet PO (09:04)
[2021-01-15] MEDS: amLODIPine 10 MG Tablet PO (09:07)
[2021-01-15] MEDS: Metoprolol(XL)Succ 50 MG Tablet PO (09:07)
[2021-01-15] MEDS: Dicyclomine 10 MG Capsule 20 MG PO ×3 (09:07→16:17)
[2021-01-15] MEDS: Insulin Lispro 100 UNIT/ML INSULN.PEN 10 UNIT SC ×2 (09:15→11:55)
[2021-01-15] MEDS: Ciprofloxacin 400 MG/200 ML BAG 200 MG IV ×2 (09:28→21:31)
[2021-01-15] MEDS: Insulin Lispro 100 UNIT/ML INSULN.PEN SC ×2 (11:54→21:36)
[2021-01-15] MEDS: HYDROcodone Bitartrate/Apap 5/325 Tablet PO ×2 (11:54→17:53)
[2021-01-15] MEDS: tiZANidine HCl 2 MG Tablet 6 MG PO (11:54)
[2021-01-15] MEDS: Calcium Carbonate 500 MG Tablet PO (11:54)
[2021-01-15] MEDS: APIXABAN 5 MG TABLET PO ×2 (11:54→20:30)
--- NOTE | 2021-01-15 12:05 | CASEMGMT ---
Social Work SW spoke with Saúl at [facility] and they are able to accept pt. Precert to be started at this time. Pt understanding that precert may not be obtained today and may not be available until Monday. Pt stating she has spoke with her family about discharge plan and declines need for SW to call family. Plan: [facility], Skilled level of care under convalescent stay. ROGER Caputo
[2021-01-15 12:06] LABS: Bedside Glucose 168 mg/dL (70-110)
--- NOTE | 2021-01-15 13:47 | PCM.PN.HOSP ---
Subjective Subjective Doing well, no issues overnight. Still having difficulties with ambulation and will likely need SNF placement Objective Data Objective Data Vital Signs: Vital Signs Temp Pulse Resp BP Pulse Ox 97.9 F 82 18 140/84 H 93 01/15/21 09:09 01/15/21 12:18 01/15/21 12:18 01/15/21 09:09 01/15/21 09:09 Oxygen Flow Rate (L/min) 3 Oxygen Delivery Method Nasal Cannula Weight: 225 lb 12.054 oz Body Mass Index (BMI) 39.7 Intake & Output: Intake and Output for Last 24 Hours 01/14/21 01/15/21 01/16/21 03:59 03:59 03:59 Intake Total 6720.85 / 6720.85 3120 / 3120 1610 / 1610 Output Total 3125 / 3125 1950 / 1950 500 / 500 Balance 3595.85 / 3595.85 1170 / 1170 1110 / 1110 Lab / Micro Data Result Diagrams: 01/15/21 06:54 01/15/21 06:54 Labs: Laboratory Results - last 24 hr 01/14/21 16:37: POC Glucose 109 01/14/21 21:50: POC Glucose 87 01/15/21 06:54: WBC 11.9 H, RBC 4.61, Hgb 13.0, Hct 39.7, MCV 86.1, MCH 28.2, MCHC 32.7, RDW Std Deviation 54.4 H, RDW Coeff of Kaycee 17.2 H, Plt Count 217, MPV 8.8, Immature Gran % (Auto) 0.300, Neut % (Auto) 75.3 H, Lymph % (Auto) 13.6 L, [place] % (Auto) 7.5, Eos % (Auto) 2.5, Baso % (Auto) 0.8, Absolute Neuts (auto) 9.0 H, Absolute Lymphs (auto) 1.62, Nucleated RBC % 0 01/15/21 06:54: Sodium 137, Potassium 4.1, Chloride 108 H, Carbon Dioxide 25.0, Anion Gap 4 L, BUN 4 L, Creatinine 0.53 L, Estim Creat Clear Calc 99.21, Est GFR (MDRD) Af Amer 154, Est GFR (MDRD) Non-Af 127, BUN/Creatinine Ratio 7.6 L, Glucose 126 H, Calcium 9.1 01/15/21 11:50: POC Glucose 168 H Micro: Microbiology 01/13/21 02:25 Urine, Clean Catch Urine Culture - Final Presumptive E. coli 01/13/21 02:42 Blood Culture (Wb) - Anticubital Right Blood Culture - Preliminary No growth in 48 hours. 01/13/21 01:50 Blood Culture (Wb) - Anticubital Left Blood Culture - Preliminary No growth in 48 hours. 01/13/21 10:10 Stool C. difficile DNA Amplification - Final 01/13/21 03:25 Nasal Secretion SARS-CoV-2 Antigen (Rapid) - Final Radiography Diagnostic Testing: Radiology Impression Knee X-Ray 01/14/21 14:30 IMPRESSION: Osteopenia without demonstrated fracture of the right knee. Mild arthrosis of the patellofemoral articulation. Electronically Signed: Curtis Srivastava MD at 15:01 EST Tel , Service support , Physical Exam Const alert, oriented x3 and no apparent distress General Appearance: cooperative HEENT normocephalic and moist oral mucous membranes Eyes PERRL, EOMs intact bilaterally and conjunctivae normal Neck supple and no JVD Resp normal respiratory effort, no retractions, no use of accessory muscles and clear to auscultation bilaterally Auscultation: Negative for crackles, rales, rhonchi or wheezes Cardio regular rate, regular rhythm, S1 normal heart sound, S2 normal heart sound and no murmurs GI soft to palpation, non-tender and non-distended; Negative for hepatosplenomegaly Extremity no clubbing, cyanosis or edema Skin Skin Narrative: Ecchymosis of the right lateral knee, with some tenderness to palpation. Left leg is in a brace for her proximal fibula fracture Neuro no focal motor deficits and no sensory deficits noted Psych affect normal Appearance: appropriate Assessment & Plan Assessment/Plan (1) Septic shock: (2) Closed fracture of proximal end of fibula: QUALIFIERS: Encounter type: initial encounter Fracture morphology: other fracture Laterality: left Qualified Code(s): S82.832A - Other fracture of upper and lower end of left fibula, initial encounter for closed fracture (3) UTI (urinary tract infection): QUALIFIERS: Urinary tract infection type: acute cystitis Hematuria presence: without hematuria Qualified Code(s): N30.00 - Acute cystitis without hematuria PLAN: 1. Septic shock secondary to acute cystitis due to pansensitive E. coli with weakness and a fall leading to a closed fracture of the proximal fibula on the left -Lactic acid is resolved, urine culture with E. coli -Continue with antibiotics and IV fluids -Orthopedic surgery was contacted by the ED physician and at that time they recommended a brace -She will be weightbearing as tolerated, can resume home narcotics and medications -PT/OT for evaluation and possible discharge recommendations placement -X-ray of the right knee was negative for fracture 2. DM2 -We will continue to monitor blood sugar, will continue with her home insulin and make adjustments as necessary based on her blood sugars -Accu-Cheks AC at bedtime 3. HTN/HLD/CAD status post stent -Blood pressure stable -Continue with her Eliquis as well as her aspirin and her Plavix -Continue with Lipitor -We will hold her lisinopril and her Lasix secondary to possible ZUHAIR -Echo from 2020 EF of 60%, however is a challenging study and an RV systolic pressure could not be estimated 4. Stage II COPD/RACHEL/asthma/pulmonary hypertension -We will monitor, she will need to have a walking pulse ox prior to discharge -Follow-up with pulmonology as an outpatient 5. GERD/history of gastric bypass -Stable -Continue with Tums, possibly takes Carafate at home if necessary can add on here 6. History of PE -Continue with Eliquis 7. History of schizophrenia -Continue with her home medications DVT: Eliquis Charges/Coding Visit Charges Inpatient E&M: 23007 Subs Hosp L2
[2021-01-15] MEDS: Sucralfate 1 GM Tablet PO ×3 (13:49→20:29)
[2021-01-15] MEDS: Ondansetron 4 MG/2 ML Vial IV (17:53)
[2021-01-15 18:56] LABS: Bedside Glucose 111 mg/dL (70-110)
[2021-01-15] MEDS: traZODone 100 MG Tablet 200 MG PO (20:29)
[2021-01-15] MEDS: Atorvastatin Calcium 80 MG Tablet PO (20:30)
[2021-01-15] MEDS: RisperiDONE 2 MG Tablet 4 MG PO (20:31)
[2021-01-15 21:50] LABS: Bedside Glucose 180 mg/dL (70-110)
[2021-01-16] VITALS (8 sets, daily range): BP systolic 110–127; BP diastolic 54–72; PULSE 51–75; RESP 15–20; TEMP 36.5–36.8; O2SAT 93–96
[2021-01-16] MEDS: oxyCODONE 5 MG Tablet PO ×4 (02:12→20:37)
[2021-01-16] MEDS: 0.9% Normal Saline 1,000 ML 75 ML IV ×2 (02:14→14:29)
[2021-01-16] MEDS: HYDROcodone Bitartrate/Apap 5/325 Tablet PO ×4 (05:11→23:33)
[2021-01-16] MEDS: Insulin Lispro 100 UNIT/ML INSULN.PEN 10 UNIT SC ×3 (08:16→16:37)
[2021-01-16] MEDS: amLODIPine 10 MG Tablet PO (08:18)
[2021-01-16] MEDS: busPIRone 15 MG TABLET 30 MG PO ×2 (08:19→22:20)
[2021-01-16] MEDS: APIXABAN 5 MG TABLET PO ×2 (08:19→22:23)
[2021-01-16] MEDS: Clopidogrel Bisulfate 75 MG Tablet PO (08:20)
[2021-01-16] MEDS: lamoTRIgine 150 MG Tablet PO (08:20)
[2021-01-16] MEDS: Escitalopram Oxalate 20 MG Tablet PO (08:21)
[2021-01-16] MEDS: Pantoprazole Sodium 20 MG Tablet PO (08:22)
[2021-01-16] MEDS: Metoprolol(XL)Succ 50 MG Tablet PO (08:22)
[2021-01-16] MEDS: Ciprofloxacin 400 MG/200 ML BAG 200 MG IV ×2 (08:29→22:24)
[2021-01-16 08:56] LABS: Bedside Glucose 117 mg/dL (70-110)
[2021-01-16 09:34] LABS: Absolute Lymphocyte Count 1.52 X10^3/uL (0.83-4.51); Absolute Neutrophil Count 8.8 X10^3/uL (2.0-7.7); Basophil# 0.07 X10^3/uL; Basophil% 0.6 % (0-1); Eosinophil# 0.39 X10^3/uL; Eosinophils% 3.4 % (0-5); Hematocrit 37.3 % (37-47); Hemoglobin 12.1 g/dL (12.0-15.0); Lymphocyte # 1.52 X10^3/ul (0.83-4.51); Lymphocyte % 13.3 % (19-41); Mean Corp Hgb Conc 32.4 g/dL (32-36); Mean Corpuscular Hgb 28.1 pg (27.0-32.0); Mean Corpuscular Volume 86.5 fL (81-99); Mean Platelet Vol. 9.2 fl (6.2-12.0); Monocyte# 0.66 X10^3/uL; Monocyte% 5.8 % (0-10); NRBC Flagged by Analyzer 0 % (0-5); Neutrophil # 8.77 X10^3/uL (2.7-7.7); Neutrophil % 76.5 % (47-70); Platelet Count 238 K/mm3 (150-450); RBC Distribution Width CV 16.8 % (11.6-14.6); Red Blood Count 4.31 M/mm3 (4.2-5.4); White Blood Count 11.5 K/mm3 (4.4-11.0)
[2021-01-16 10:02] LABS: Anion Gap 4 (5-15); BUN 4 mg/dL (7-18); BUN/Creat Ratio 6.5 RATIO (10-20); Calcium,Total 9.2 mg/dL (8.5-10.1); Chloride 105 mmol/L (98-107); Creatinine, Serum 0.62 mg/dL (0.55-1.02); EST Glomerular Filtration Rate 106 mL/min (>60); Est Glom Filt Rate - Afr Amer 129 mL/min (>60); Estimated Creatinine Clearance 84.81 ml/min; Glucose 94 mg/dL (74-106); Potassium 3.8 mmol/L (3.5-5.1); Sodium Level 137 mmol/L (136-145)
[2021-01-16] MEDS: Albuterol 2.5 MG/3 ML VIAL.NEB. INHALATION ×3 (10:21→20:10)
[2021-01-16] MEDS: Budesonide Respules 0.5 MG/2 ML AMPUL.NEB. INHALATION ×2 (10:21→20:10)
[2021-01-16] MEDS: Sucralfate 1 GM Tablet PO ×3 (11:29→22:21)
[2021-01-16] MEDS: Dicyclomine 10 MG Capsule 20 MG PO ×2 (11:35→16:41)
--- NOTE | 2021-01-16 11:44 | PCM.PN.HOSP ---
Subjective Subjective Doing well, working with physical therapy, no issues overnight. Objective Data Objective Data Vital Signs: Vital Signs Temp Pulse Resp BP Pulse Ox 97.7 F L 75 18 118/54 L 93 01/16/21 08:13 01/16/21 10:22 01/16/21 10:22 01/16/21 08:22 01/16/21 10:22 Oxygen Flow Rate (L/min) 2 Oxygen Delivery Method Nasal Cannula Weight: 228 lb 6.382 oz Body Mass Index (BMI) 39.7 Intake & Output: Intake and Output for Last 24 Hours 01/15/21 01/16/21 01/17/21 03:59 03:59 03:59 Intake Total 3120 / 3120 4575 / 4575 400 / 400 Output Total 1950 / 1950 1900 / 1900 1450 / 1450 Balance 1170 / 1170 2675 / 2675 -1050 / -1050 Lab / Micro Data Result Diagrams: 01/16/21 09:20 01/16/21 09:20 Labs: Laboratory Results - last 24 hr 01/15/21 11:50: POC Glucose 168 H 01/15/21 17:21: POC Glucose 111 H 01/15/21 21:34: POC Glucose 180 H 01/16/21 08:12: POC Glucose 117 H 01/16/21 09:20: WBC 11.5 H, RBC 4.31, Hgb 12.1, Hct 37.3, MCV 86.5, MCH 28.1, MCHC 32.4, RDW Std Deviation 53.0 H, RDW Coeff of Kaycee 16.8 H, Plt Count 238, MPV 9.2, Immature Gran % (Auto) 0.400, Neut % (Auto) 76.5 H, Lymph % (Auto) 13.3 L, [place] % (Auto) 5.8, Eos % (Auto) 3.4, Baso % (Auto) 0.6, Absolute Neuts (auto) 8.8 H, Absolute Lymphs (auto) 1.52, Nucleated RBC % 0 01/16/21 09:20: Sodium 137, Potassium 3.8, Chloride 105, Carbon Dioxide 28.0, Anion Gap 4 L, BUN 4 L, Creatinine 0.62, Estim Creat Clear Calc 84.81, Est GFR (MDRD) Af Amer 129, Est GFR (MDRD) Non-Af 106, BUN/Creatinine Ratio 6.5 L, Glucose 94, Calcium 9.2 Micro: Microbiology 01/13/21 02:25 Urine, Clean Catch Urine Culture - Final Presumptive E. coli 01/13/21 02:42 Blood Culture (Wb) - Anticubital Right Blood Culture - Preliminary No growth in 48 hours. 01/13/21 01:50 Blood Culture (Wb) - Anticubital Left Blood Culture - Preliminary No growth in 48 hours. 01/13/21 10:10 Stool C. difficile DNA Amplification - Final 01/13/21 03:25 Nasal Secretion SARS-CoV-2 Antigen (Rapid) - Final Physical Exam Const alert, oriented x3 and no apparent distress General Appearance: cooperative HEENT normocephalic and moist oral mucous membranes Eyes PERRL, EOMs intact bilaterally and conjunctivae normal Neck supple and no JVD Resp normal respiratory effort, no retractions, no use of accessory muscles and clear to auscultation bilaterally Auscultation: Negative for crackles, rales, rhonchi or wheezes Cardio regular rate, regular rhythm, S1 normal heart sound, S2 normal heart sound and no murmurs GI soft to palpation, non-tender and non-distended; Negative for hepatosplenomegaly Extremity no clubbing, cyanosis or edema Skin Skin Narrative: Ecchymosis of the right lateral knee, with some tenderness to palpation. Left leg is in a brace for her proximal fibula fracture Neuro no focal motor deficits and no sensory deficits noted Psych affect normal Appearance: appropriate Assessment & Plan Assessment/Plan (1) Septic shock: (2) Closed fracture of proximal end of fibula: QUALIFIERS: Encounter type: initial encounter Fracture morphology: other fracture Laterality: left Qualified Code(s): S82.832A - Other fracture of upper and lower end of left fibula, initial encounter for closed fracture (3) UTI (urinary tract infection): QUALIFIERS: Urinary tract infection type: acute cystitis Hematuria presence: without hematuria Qualified Code(s): N30.00 - Acute cystitis without hematuria PLAN: 1. Septic shock secondary to acute cystitis due to pansensitive E. coli with weakness and a fall leading to a closed fracture of the proximal fibula on the left -Lactic acid is resolved, urine culture with E. coli -Continue with antibiotics and IV fluids -Orthopedic surgery was contacted by the ED physician and at that time they recommended a brace -She will be weightbearing as tolerated, can resume home narcotics and medications -PT/OT for evaluation and possible discharge recommendations placement -X-ray of the right knee was negative for fracture 2. DM2 -We will continue to monitor blood sugar, will continue with her home insulin and make adjustments as necessary based on her blood sugars -Accu-Cheks AC at bedtime 3. HTN/HLD/CAD status post stent -Blood pressure stable -Continue with her Eliquis as well as her aspirin and her Plavix -Continue with Lipitor -We will hold her lisinopril and her Lasix secondary to possible ZUHAIR -Echo from 2020 EF of 60%, however is a challenging study and an RV systolic pressure could not be estimated 4. Stage II COPD/RACHEL/asthma/pulmonary hypertension -We will monitor, she will need to have a walking pulse ox prior to discharge -Follow-up with pulmonology as an outpatient 5. GERD/history of gastric bypass -Stable -Continue with Tums, possibly takes Carafate at home if necessary can add on here 6. History of PE -Continue with Eliquis 7. History of schizophrenia -Continue with her home medications DVT: Eliquis Charges/Coding Visit Charges Inpatient E&M: 41229 Subs Hosp L2
[2021-01-16 12:11] LABS: Bedside Glucose 132 mg/dL (70-110)
[2021-01-16] MEDS: Pregabalin 75 MG Capsule PO ×2 (13:50→22:18)
[2021-01-16] MEDS: tiZANidine HCl 2 MG Tablet 6 MG PO ×2 (13:52→18:33)
[2021-01-16 16:55] LABS: Bedside Glucose 143 mg/dL (70-110)
[2021-01-16] MEDS: Atorvastatin Calcium 80 MG Tablet PO (22:19)
[2021-01-16] MEDS: traZODone 100 MG Tablet 200 MG PO (22:21)
[2021-01-16] MEDS: Insulin Lispro 100 UNIT/ML INSULN.PEN SC (22:23)
[2021-01-16] MEDS: RisperiDONE 2 MG Tablet 4 MG PO (22:24)
[2021-01-16 22:51] LABS: Bedside Glucose 158 mg/dL (70-110)
[2021-01-17] VITALS (8 sets, daily range): BP systolic 81–155; BP diastolic 53–76; PULSE 55–75; RESP 16–20; TEMP 36.5–37.1; O2SAT 92–95
[2021-01-17] MEDS: oxyCODONE 5 MG Tablet PO ×4 (02:59→21:38)
[2021-01-17] MEDS: 0.9% Normal Saline 1,000 ML 75 ML IV ×2 (05:04→16:10)
[2021-01-17] MEDS: Pregabalin 75 MG Capsule PO ×3 (06:56→21:39)
[2021-01-17] MEDS: Sucralfate 1 GM Tablet PO ×3 (06:56→21:39)
[2021-01-17] MEDS: Dicyclomine 10 MG Capsule 20 MG PO ×2 (06:56→16:10)
[2021-01-17] MEDS: HYDROcodone Bitartrate/Apap 5/325 Tablet PO ×4 (06:59→23:51)
[2021-01-17] MEDS: Clopidogrel Bisulfate 75 MG Tablet PO (09:34)
[2021-01-17] MEDS: tiZANidine HCl 2 MG Tablet 6 MG PO ×2 (09:36→21:38)
[2021-01-17] MEDS: busPIRone 15 MG TABLET 30 MG PO ×2 (09:36→21:39)
[2021-01-17] MEDS: Escitalopram Oxalate 20 MG Tablet PO (09:36)
[2021-01-17] MEDS: lamoTRIgine 150 MG Tablet PO (09:36)
[2021-01-17] MEDS: Pantoprazole Sodium 20 MG Tablet PO (09:37)
[2021-01-17] MEDS: APIXABAN 5 MG TABLET PO ×2 (09:37→21:39)
[2021-01-17] MEDS: amLODIPine 10 MG Tablet PO (09:38)
--- NOTE | 2021-01-17 09:38 | PN.HOSP_ITS ---
Subjective Subjective Doing well, pain is little bit improved. She did have some soreness yesterday with physical therapy but was able to get up and walk. Objective Data Objective Data Vital Signs: Vital Signs Temp Pulse Resp BP Pulse Ox 98.8 F 65 18 152/71 H 92 01/17/21 08:30 01/17/21 08:30 01/17/21 08:30 01/17/21 08:30 01/17/21 08:30 Oxygen Flow Rate (L/min) 2 Oxygen Delivery Method Nasal Cannula Weight: 232 lb 9.403 oz Body Mass Index (BMI) 39.7 Intake & Output: Intake and Output for Last 24 Hours 01/16/21 01/17/21 01/18/21 03:59 03:59 03:59 Intake Total 4575 / 4575 2518.75 / 2518.75 Output Total 1900 / 1900 2800 / 2800 1075 / 1075 Balance 2675 / 2675 -281.25 / -281.25 -1075 / -1075 Lab / Micro Data Result Diagrams: 01/16/21 09:20 01/16/21 09:20 Labs: Laboratory Results - last 24 hr 01/16/21 09:20: Sodium 137, Potassium 3.8, Chloride 105, Carbon Dioxide 28.0, Anion Gap 4 L, BUN 4 L, Creatinine 0.62, Estim Creat Clear Calc 84.81, Est GFR (MDRD) Af Amer 129, Est GFR (MDRD) Non-Af 106, BUN/Creatinine Ratio 6.5 L, Glucose 94, Calcium 9.2 01/16/21 11:27: POC Glucose 132 H 01/16/21 16:36: POC Glucose 143 H 01/16/21 22:16: POC Glucose 158 H Micro: Microbiology 01/13/21 02:25 Urine, Clean Catch Urine Culture - Final Presumptive E. coli 01/13/21 02:42 Blood Culture (Wb) - Anticubital Right Blood Culture - Preliminary No growth in 48 hours. 01/13/21 01:50 Blood Culture (Wb) - Anticubital Left Blood Culture - Preliminary No growth in 48 hours. 01/13/21 10:10 Stool C. difficile DNA Amplification - Final 01/13/21 03:25 Nasal Secretion SARS-CoV-2 Antigen (Rapid) - Final Physical Exam Const alert, oriented x3 and no apparent distress General Appearance: cooperative HEENT normocephalic and moist oral mucous membranes Eyes PERRL, EOMs intact bilaterally and conjunctivae normal Neck supple and no JVD Resp normal respiratory effort, no retractions, no use of accessory muscles and clear to auscultation bilaterally Auscultation: Negative for crackles, rales, rhonchi or wheezes Cardio regular rate, regular rhythm, S1 normal heart sound, S2 normal heart sound and no murmurs GI soft to palpation, non-tender and non-distended; Negative for hepatosplenomegaly Extremity no clubbing, cyanosis or edema Skin Skin Narrative: Ecchymosis of the right lateral knee, with some tenderness to palpation. Left leg is in a brace for her proximal fibula fracture Neuro no focal motor deficits and no sensory deficits noted Psych affect normal Appearance: appropriate Assessment & Plan Assessment/Plan (1) Septic shock: (2) Closed fracture of proximal end of fibula: QUALIFIERS: Encounter type: initial encounter Fracture morpho logy: other fracture Laterality: left Qualified Code(s): S82.832A - Other fracture of upper and lower end of left fibula, initial encounter for closed fracture (3) UTI (urinary tract infection): QUALIFIERS: Urinary tract infection type: acute cystitis Hematu alexys presence: without hematuria Qualified Code(s): N30.00 - Acute cystitis without hematuria PLAN: 1. Septic shock secondary to acute cystitis due to pansensitive E. coli with weakness and a fall leading to a closed fracture of the proximal fibula on the left -Lactic acid is resolved, urine culture with E. coli -Last antibiotics this evening and IV fluids -Orthopedic surgery was contacted by the ED physician and at that time they recommended a brace -She will be weightbearing as tolerated, can resume home narcotics and medications -PT/OT for evaluation and possible discharge recommendations placement -X-ray of the right knee was negative for fracture 2. DM2 -We will continue to monitor blood sugar, will continue with her home insulin and make adjustments as necessary based on her blood sugars -Accu-Cheks AC at bedtime 3. HTN/HLD/CAD status post stent -Blood pressure stable -Continue with her Eliquis as well as her aspirin and her Plavix -Continue with Lipitor -We will hold her lisinopril and her Lasix secondary to possible ZUHAIR -Echo from 2019 EF of 60%, however is a challenging study and an RV systolic pressure could not be estimated 4. Stage II COPD/RACHEL/asthma/pulmonary hypertension -We will monitor, she will need to have a walking pulse ox prior to discharge -Follow-up with pulmonology as an outpatient -Continue with duo nebs 5. GERD/history of gastric bypass -Stable -Continue with Tums, possibly takes Carafate at home if necessary can add on here 6. History of PE -Continue with Eliquis 7. History of schizophrenia -Continue with her home medications DVT: Eliquis Charges/Coding Visit Charges Inpatient E&M: 35054 Subs Hosp L2
[2021-01-17] MEDS: Ciprofloxacin 400 MG/200 ML BAG 200 MG IV (09:47)
[2021-01-17 09:51] LABS: Bedside Glucose 135 mg/dL (70-110)
[2021-01-17] MEDS: Insulin Lispro 100 UNIT/ML INSULN.PEN 10 UNIT SC ×2 (09:54→17:48)
[2021-01-17] MEDS: Albuterol 2.5 MG/3 ML VIAL.NEB. INHALATION ×3 (10:27→20:13)
[2021-01-17] MEDS: Budesonide Respules 0.5 MG/2 ML AMPUL.NEB. INHALATION ×2 (10:27→20:13)
[2021-01-17 12:10] LABS: Bedside Glucose 175 mg/dL (70-110)
[2021-01-17 17:10] LABS: Bedside Glucose 114 mg/dL (70-110)
[2021-01-17] MEDS: MELATONIN 3 MG TABLET PO (21:38)
[2021-01-17] MEDS: Atorvastatin Calcium 80 MG Tablet PO (21:38)
[2021-01-17] MEDS: RisperiDONE 2 MG Tablet 4 MG PO (21:39)
[2021-01-17] MEDS: Ciprofloxacin 400 MG/200 ML BAG 100 MG IV (21:39)
[2021-01-17] MEDS: traZODone 100 MG Tablet 200 MG PO (21:40)
[2021-01-18] VITALS (10 sets, daily range): BP systolic 99–156; BP diastolic 45–85; PULSE 58–78; RESP 16–20; TEMP 36.5–37; O2SAT 93–96
[2021-01-18 02:21] LABS: Bedside Glucose 104 mg/dL (70-110)
[2021-01-18] MEDS: oxyCODONE 5 MG Tablet PO ×4 (04:11→22:52)
[2021-01-18] MEDS: 0.9% Normal Saline 1,000 ML 75 ML IV (06:08)
[2021-01-18] MEDS: Pregabalin 75 MG Capsule PO ×3 (06:08→21:17)
[2021-01-18] MEDS: Sucralfate 1 GM Tablet PO ×4 (06:08→21:18)
[2021-01-18] MEDS: Dicyclomine 10 MG Capsule 20 MG PO ×2 (06:08→10:52)
[2021-01-18 07:17] LABS: Absolute Lymphocyte Count 1.55 X10^3/uL (0.83-4.51); Absolute Neutrophil Count 6.5 X10^3/uL (2.0-7.7); Basophil# 0.08 X10^3/uL; Basophil% 0.9 % (0-1); Eosinophil# 0.32 X10^3/uL; Eosinophils% 3.5 % (0-5); Hematocrit 36.7 % (37-47); Lymphocyte # 1.55 X10^3/ul (0.83-4.51); Lymphocyte % 16.9 % (19-41); Mean Corp Hgb Conc 32.7 g/dL (32-36); Mean Corpuscular Volume 85.7 fL (81-99); Mean Platelet Vol. 9.5 fl (6.2-12.0); Monocyte# 0.76 X10^3/uL; Monocyte% 8.3 % (0-10); NRBC Flagged by Analyzer 0 % (0-5); Neutrophil # 6.45 X10^3/uL (2.7-7.7); Neutrophil % 70.1 % (47-70); Platelet Count 233 K/mm3 (150-450); RBC Distribution Width CV 16.8 % (11.6-14.6); RBC Distribution Width SD 52.3 fl (35.1-43.9); Red Blood Count 4.28 M/mm3 (4.2-5.4); White Blood Count 9.2 K/mm3 (4.4-11.0)
[2021-01-18 07:51] LABS: Anion Gap 4 (5-15); BUN 3 mg/dL (7-18); Calcium,Total 9.4 mg/dL (8.5-10.1); Chloride 107 mmol/L (98-107); EST Glomerular Filtration Rate 136 mL/min (>60); Est Glom Filt Rate - Afr Amer 164 mL/min (>60); Estimated Creatinine Clearance 105.16 ml/min; Glucose 116 mg/dL (74-106); Potassium 3.7 mmol/L (3.5-5.1); Sodium Level 138 mmol/L (136-145)
[2021-01-18] MEDS: HYDROcodone Bitartrate/Apap 5/325 Tablet PO ×3 (08:03→20:39)
[2021-01-18 08:15] LABS: Bedside Glucose 114 mg/dL (70-110)
--- NOTE | 2021-01-18 08:57 | CASEMGMT ---
MAURO called [facility], precert is still pending. Updates faxed. MAURO will continue to follow. SUSSY [place]
[2021-01-18] MEDS: Insulin Lispro 100 UNIT/ML INSULN.PEN 10 UNIT SC ×2 (09:04→17:15)
[2021-01-18] MEDS: Escitalopram Oxalate 20 MG Tablet PO (09:05)
[2021-01-18] MEDS: lamoTRIgine 150 MG Tablet PO (09:05)
[2021-01-18] MEDS: APIXABAN 5 MG TABLET PO ×2 (09:05→21:18)
[2021-01-18] MEDS: amLODIPine 10 MG Tablet PO (09:05)
[2021-01-18] MEDS: busPIRone 15 MG TABLET 30 MG PO ×2 (09:06→21:18)
[2021-01-18] MEDS: Metoprolol(XL)Succ 50 MG Tablet PO (09:06)
[2021-01-18] MEDS: Clopidogrel Bisulfate 75 MG Tablet PO (09:06)
[2021-01-18] MEDS: Pantoprazole Sodium 20 MG Tablet PO (09:06)
[2021-01-18] MEDS: tiZANidine HCl 2 MG Tablet 6 MG PO ×2 (09:13→17:14)
--- NOTE | 2021-01-18 10:21 | PCM.PN.HOSP ---
Subjective Subjective Doing well, no issues overnight. Still awaiting pre-CERT Objective Data Objective Data Vital Signs: Vital Signs Temp Pulse Resp BP Pulse Ox 97.7 F L 68 18 156/73 H 94 01/18/21 07:59 01/18/21 09:06 01/18/21 07:59 01/18/21 09:06 01/18/21 07:59 Oxygen Flow Rate (L/min) 2 Oxygen Delivery Method Nasal Cannula Weight: 232 lb 9.403 oz Body Mass Index (BMI) 39.7 Intake & Output: Intake and Output for Last 24 Hours 01/17/21 01/18/21 01/19/21 03:59 03:59 03:59 Intake Total 2518.75 / 2518.75 1865 / 1865 1240 / 1240 Output Total 2800 / 2800 3825 / 3825 1000 / 1000 Balance -281.25 / -281.25 -1960 / -1960 240 / 240 Lab / Micro Data Result Diagrams: 01/18/21 06:42 01/18/21 06:42 Labs: Laboratory Results - last 24 hr 01/17/21 12:01: POC Glucose 175 H 01/17/21 17:06: POC Glucose 114 H 01/17/21 21:37: POC Glucose 104 01/18/21 06:42: WBC 9.2, RBC 4.28, Hgb 12.0, Hct 36.7 L, MCV 85.7, MCH 28.0, MCHC 32.7, RDW Std Deviation 52.3 H, RDW Coeff of Kaycee 16.8 H, Plt Count 233, MPV 9.5, Immature Gran % (Auto) 0.300, Neut % (Auto) 70.1 H, Lymph % (Auto) 16.9 L, [place] % (Auto) 8.3, Eos % (Auto) 3.5, Baso % (Auto) 0.9, Absolute Neuts (auto) 6.5, Absolute Lymphs (auto) 1.55, Nucleated RBC % 0 01/18/21 06:42: Sodium 138, Potassium 3.7, Chloride 107, Carbon Dioxide 27.0, Anion Gap 4 L, BUN 3 L, Creatinine 0.50 L, Estim Creat Clear Calc 105.16, Est GFR (MDRD) Af Amer 164, Est GFR (MDRD) Non-Af 136, BUN/Creatinine Ratio 6.0 L, Glucose 116 H, Calcium 9.4 01/18/21 08:11: POC Glucose 114 H Micro: Microbiology 01/13/21 02:42 Blood Culture (Wb) - Anticubital Right Blood Culture - Final No growth in 5 days. 01/13/21 01:50 Blood Culture (Wb) - Anticubital Left Blood Culture - Final No growth in 5 days. 01/13/21 02:25 Urine, Clean Catch Urine Culture - Final Presumptive E. coli 01/13/21 10:10 Stool C. difficile DNA Amplification - Final 01/13/21 03:25 Nasal Secretion SARS-CoV-2 Antigen (Rapid) - Final Physical Exam Const alert, oriented x3 and no apparent distress General Appearance: cooperative HEENT normocephalic and moist oral mucous membranes Eyes PERRL, EOMs intact bilaterally and conjunctivae normal Neck supple and no JVD Resp normal respiratory effort, no retractions, no use of accessory muscles and clear to auscultation bilaterally Auscultation: Negative for crackles, rales, rhonchi or wheezes Cardio regular rate, regular rhythm, S1 normal heart sound, S2 normal heart sound and no murmurs GI soft to palpation, non-tender and non-distended; Negative for hepatosplenomegaly Extremity no clubbing, cyanosis or edema Skin Skin Narrative: Ecchymosis of the right lateral knee, with some tenderness to palpation. Left leg is in a brace for her proximal fibula fracture Neuro no focal motor deficits and no sensory deficits noted Psych affect normal Appearance: appropriate Assessment & Plan Assessment/Plan (1) Septic shock: (2) Closed fracture of proximal end of fibula: QUALIFIERS: Encounter type: initial encounter Fracture morphology: other fracture Laterality: left Qualified Code(s): S82.832A - Other fracture of upper and lower end of left fibula, initial encounter for closed fracture (3) UTI (urinary tract infection): QUALIFIERS: Urinary tract infection type: acute cystitis Hematuria presence: without hematuria Qualified Code(s): N30.00 - Acute cystitis without hematuria PLAN: 1. Septic shock secondary to acute cystitis due to pansensitive E. coli with weakness and a fall leading to a closed fracture of the proximal fibula on the left -Lactic acid is resolved, urine culture with E. coli -Completed 5 days of Cipro, UTI resolved -Orthopedic surgery was contacted by the ED physician and at that time they recommended a brace -She will be weightbearing as tolerated, can resume home narcotics and medications -PT/OT for evaluation and possible discharge recommendations placement -X-ray of the right knee was negative for fracture 2. DM2 -We will continue to monitor blood sugar, will continue with her home insulin and make adjustments as necessary based on her blood sugars -Accu-Cheks AC at bedtime 3. HTN/HLD/CAD status post stent -Blood pressure stable -Continue with her Eliquis as well as her aspirin and her Plavix -Continue with Lipitor -We will hold her lisinopril and her Lasix secondary to possible ZUHAIR and softer blood pressures when she initially came in -Echo from 2019 EF of 60%, however is a challenging study and an RV systolic pressure could not be estimated 4. Stage II COPD/RACHEL/asthma/pulmonary hypertension -We will monitor, she will need to have a walking pulse ox prior to discharge -Follow-up with pulmonology as an outpatient -Continue with trina freedman 5. GERD/history of gastric bypass -Stable -Continue with Tums, possibly takes Carafate at home if necessary can add on here 6. History of PE -Continue with Eliquis 7. History of schizophrenia -Continue with her home medications DVT: Eliquis Charges/Coding Visit Charges Inpatient E&M: 29496 Subs Hosp L2
[2021-01-18 12:15] LABS: Bedside Glucose 56 mg/dL (70-110)
[2021-01-18] MEDS: Budesonide Respules 0.5 MG/2 ML AMPUL.NEB. INHALATION (13:02)
[2021-01-18] MEDS: Albuterol 2.5 MG/3 ML VIAL.NEB. INHALATION ×2 (13:02→18:57)
[2021-01-18 14:46] LABS: Bedside Glucose 169 mg/dL (70-110)
[2021-01-18 17:01] LABS: Bedside Glucose 164 mg/dL (70-110)
[2021-01-18] MEDS: Insulin Lispro 100 UNIT/ML INSULN.PEN SC (17:16)
[2021-01-18] MEDS: DiphenhydrAMINE 25 MG Capsule PO (17:20)
--- NOTE | 2021-01-18 20:47 | CPS ---
Pulmicort not given to pt. due to conflicting time apart from last one given. Pt. understands why it wasn't given, and she is aware that it will be given to her in the morning
[2021-01-18 20:56] LABS: Bedside Glucose 98 mg/dL (70-110)
[2021-01-18] MEDS: RisperiDONE 2 MG Tablet 4 MG PO (21:18)
[2021-01-18] MEDS: MELATONIN 3 MG TABLET PO (21:18)
[2021-01-18] MEDS: Atorvastatin Calcium 80 MG Tablet PO (21:18)
[2021-01-18] MEDS: traZODone 100 MG Tablet 200 MG PO (21:18)
[2021-01-19] VITALS (7 sets, daily range): BP systolic 130–142; BP diastolic 69–77; PULSE 60–72; RESP 16–18; TEMP 35.5–36.8; O2SAT 92–96
[2021-01-19] MEDS: HYDROcodone Bitartrate/Apap 5/325 Tablet PO ×2 (03:25→11:00)
[2021-01-19] MEDS: tiZANidine HCl 2 MG Tablet 6 MG PO ×2 (04:39→11:03)
[2021-01-19] MEDS: Sucralfate 1 GM Tablet PO ×2 (05:16→09:15)
[2021-01-19] MEDS: Pregabalin 75 MG Capsule PO (05:16)
[2021-01-19] MEDS: Dicyclomine 10 MG Capsule 20 MG PO (05:16)
[2021-01-19] MEDS: Albuterol 2.5 MG/3 ML VIAL.NEB. INHALATION ×2 (06:54→12:07)
[2021-01-19] MEDS: Budesonide Respules 0.5 MG/2 ML AMPUL.NEB. INHALATION (06:54)
--- NOTE | 2021-01-19 07:45 | PCM.TXEXTCAR ---
Diet 01/13/21 07:28 Diet: Consistent Carb - Calorie Controlled How many daily calories?: 1800 calorie Routine Orders/Code Status Code Status: Full Code Therapies Weight Bearing: Weight bearing as tolerated Problem/Diagnosis (1) Septic shock: Status: Acute (2) Closed fracture of proximal end of fibula: Status: Acute (3) UTI (urinary tract infection): Status: Acute Allergies/Procedures Done in Hospital Allergies amoxicillin Allergy (Verified 01/13/21 01:24) Itching erythromycin base Allergy (Verified 01/13/21:24) Unknown methadone Allergy (Verified 01/13/21:24) Itching metolazone Allergy (Verified 01/13/21:24) Unknown Penicillins Allergy (Verified 01/13/21:24) Hives Sulfa (Sulfonamide Antibiotics) Allergy (Verified 01/13/21:24) Hives clarithromycin [From Biaxin] Adverse Reaction (Verified 01/13/21:24) Nausea ibuprofen Adverse Reaction (Verified 01/13/21:24) 3 BLEEDING ULCERS 3 BLEEDING ULCERS morphine Adverse Reaction (Verified 01/13/21:24) HEADACHE HEADACHE oxycodone [From Percocet] Adverse Reaction (Verified 01/13/21:24) Itching Procedures: None Type of Care/Length of Stay Estimated LOS: Convalescent Care Less Than 30 days Type of Care Needed: Skilled Rehab Potential: Fair Prognosis: Fair Additional Orders/Day of Discharge Day of Discharge: 01/19/21 Dietary and Speech Recommendations Dietitian Recommendations/Changes: continue 1800 calorie controlled, consistent CHO diet; ONS not indicated at this time. Discharge Plan Admission Admit Date/Time: 01/13/21 04:20 Attending Provider: Wang Rosen Primary Care Provider: Janel Taylor Consulting Providers: Lucas Willoughby Discharge Orders/Prescriptions Prescriptions: New oxycodone 5 mg Tablet 5 mg PO Q6H PRN PRN (Reason: Pain Score 6-10) 3 Days Qty: 10 RF: 0 Continued sucralfate 1 gram tablet 1 g PO QACHS RF: 0 atorvastatin 80 MG tablet 80 mg PO QHS RF: 0 nitroglycerin 0.4 MG tablet, sublingual 0.4 mg SL PRN PRN (Reason: Cardiac/Chest Pain) RF: 0 risperidone 4 mg tablet 4 mg PO QHS RF: 0 trazodone 100 MG tablet 200 mg PO QHS PRN (Reason: Insomnia) RF: 0 pregabalin 75 MG capsule 75 mg PO TID RF: 0 tizanidine 4 MG tablet 6 mg PO TID PRN PRN (Reason: Spasms) RF: 0 buspirone 30 mg tablet 30 mg PO BID RF: 0 mirabegron 25 MG tablet extended release 24 hr 25 mg PO DAILY RF: 0 apixaban 5 MG tablet 5 mg PO BID RF: 0 acidophilus-pectin, citrus 1 TABLET tablet 2 tab PO BID RF: 0 metoclopramide HCl 10 MG tablet 10 mg PO 4X/DAY PRN (Reason: Headache) Qty: 20 RF: 0 clopidogrel 75 mg tablet 75 mg PO DAILY RF: 0 sennosides-docusate sodium [Stool Softener-Stimulant Laxat] 8.6-50 mg Tablet 2 tab PO BID PRN PRN (Reason: Constipation) Qty: 0 RF: 0 promethazine 25 mg Tablet 25 mg PO BID PRN PRN (Reason: Nausea) RF: 0 escitalopram oxalate 20 mg Tablet 20 mg PO DAILY RF: 0 Advair HFA 230-21 mcg/actuation Hfa Aerosol Inhaler 2 puff INHALATION BID RF: 0 albuterol sulfate 1 PUFF HFA aerosol inhaler 2 puff IH Q4H PRN PRN (Reason: SOB &/or Wheezing ) RF: 0 loperamide [Imodium A-D] 2 mg Capsule 2 mg PO Q6H PRN (Reason: Diarrhea) RF: 0 fluticasone propionate 50 mcg/actuation [place],Suspension 1 spray INTRANASAL BID RF: 0 amlodipine 2.5 mg tablet 10 mg PO DAILY RF: 0 metoprolol succinate 25 mg tablet extended release 24 hr 50 mg PO DAILY RF: 0 lamotrigine 25 mg tablet 150 mg PO DAILY RF: 0 potassium chloride [K-Tab] 20 mEq tablet extended release 40 meq PO DAILY RF: 0 insulin lispro [Humalog KwikPen Insulin] 100 unit/mL insulin pen 10 unit subcut TIDAC RF: 0 pantoprazole 40 mg Tablet,Delayed Release (Dr/Ec) 40 mg PO BID RF: 0 dicyclomine 10 MG capsule 20 mg PO TIDAC RF: 0 tiotropium bromide 2.5 mcg/actuation mist 2 puff INHALATION DAILY Qty: 4 RF: 3 montelukast 10 mg tablet 10 mg PO QHS Qty: 30 RF: 5 Changed lisinopril 20 MG tablet 10 mg PO QHS Qty: 0 RF: 0 insulin glargine 100 UNITS/ML insulin pen 25 unit SC DAILY Qty: 0 RF: 0 Held furosemide 20 MG tablet 20 mg PO DAILY RF: 0 Hold Instructions: Resume on 01/22/21. Discontinued hydrocodone-acetaminophen 5-325 mg tablet 1 tab PO Q6H PRN (Reason: pain) 3 Days Qty: 12 RF: 0 Referrals / Follow Up: Janel Taylor MD [Primary Care Provider] - Within 1 Month Disposition Disposition (needs filled in before D/C Order can be placed): Group Home Facility
[2021-01-19] MEDS: oxyCODONE 5 MG Tablet PO (09:02)
[2021-01-19] MEDS: Insulin Lispro 100 UNIT/ML INSULN.PEN 10 UNIT SC (09:12)
[2021-01-19] MEDS: amLODIPine 10 MG Tablet PO (09:14)
[2021-01-19] MEDS: Metoprolol(XL)Succ 50 MG Tablet PO (09:14)
[2021-01-19] MEDS: Clopidogrel Bisulfate 75 MG Tablet PO (09:15)
[2021-01-19] MEDS: APIXABAN 5 MG TABLET PO (09:15)
[2021-01-19] MEDS: busPIRone 15 MG TABLET 30 MG PO (09:16)
[2021-01-19] MEDS: Escitalopram Oxalate 20 MG Tablet PO (09:16)
[2021-01-19] MEDS: Pantoprazole Sodium 20 MG Tablet PO (09:21)
[2021-01-19] MEDS: lamoTRIgine 150 MG Tablet PO (09:23)
[2021-01-19 09:31] LABS: Bedside Glucose 137 mg/dL (70-110)
--- NOTE | 2021-01-19 10:15 | CASEMGMT ---
Pt is ready for discharge, precert was attained. SW completed hospital exemption, faxed this along with all discharge paperwork to [facility], including transfer to extended care, medication list, negative COVID test. [facility]. MAURO set up an ambulance w/Physicians for 1pm, SW let pt's RN, pt and [facility] know time of pickup. Plan: [facility], convalescent stay, skilled level of care. SUSSY [place]
--- NOTE | 2021-01-19 11:05 | PCM.DC.SUM ---
Providers Date of Admission: 01/13/21 Primary Care Physician: Dr. Janel Taylor MD Consultations 01/13/21 07:27 Consult: Recycling Operator / Pulmonary Medicine Routine Consulting Provider: Lucas Willoughby Reason for Consult: UTI EMERGENT Consult: No MD Notified: Yes Date Notified: 01/13/21 Time Notified: 08:09 Method of Notification: Verbal Reason For Visit: SEPTIC SHOCK Diagnosis Discharge Diagnosis (1) Septic shock: Status: Acute Code(s): A41.9 - Sepsis, unspecified organism; R65.21 - Severe sepsis with septic shock (2) Closed fracture of proximal end of fibula: Status: Acute Code(s): S82.839A - Other fracture of upper and lower end of unspecified fibula, initial encounter for closed fracture Qualifiers: Encounter type: initial encounter Fracture morphology: other fracture Laterality: left Qualified Code(s): S82.832A - Other fracture of upper and lower end of left fibula, initial encounter for closed fracture (3) UTI (urinary tract infection): Status: Acute Code(s): N39.0 - Urinary tract infection, site not specified Qualifiers: Urinary tract infection type: acute cystitis Hematuria presence: without hematuria Qualified Code(s): N30.00 - Acute cystitis without hematuria Medications at Discharge Home Medications atorvastatin 80 mg PO QHS 08/22/15 nitroglycerin 0.4 mg SL PRN PRN 11/08/16 pregabalin 75 mg PO TID 03/08/18 risperidone 4 mg PO QHS 03/08/18 tizanidine 6 mg PO TID PRN PRN 03/08/18 trazodone 200 mg PO QHS PRN 03/08/18 furosemide 20 mg PO DAILY 11/20/18 mirabegron 25 mg PO DAILY 11/20/18 apixaban 5 mg PO BID 05/02/19 buspirone 30 mg tablet 30 mg PO BID tab 06/27/19 sucralfate 1 gram tablet 1 g PO QACHS 06/27/19 tiotropium bromide 2.5 mcg/actuation mist for inhalation 2 puff INHALATION DAILY #4 g 09/30/19 montelukast 10 mg tablet 10 mg PO QHS #30 tab 10/30/19 acidophilus-pectin, citrus 2 tab PO BID 12/16/19 metoclopramide HCl 10 mg PO 4X/DAY PRN #20 tab 03/16/20 clopidogrel 75 mg PO DAILY 07/31/20 sennosides-docusate sodium [Stool Softener-Stimulant Laxat] 2 tab PO BID PRN PRN #0 tab 08/11/20 Advair HFA 2 puff INHALATION BID 11/14/20 albuterol sulfate 2 puff IH Q4H PRN PRN 11/14/20 amlodipine 10 mg PO DAILY 11/14/20 escitalopram oxalate 20 mg PO DAILY 11/14/20 fluticasone propionate 1 spray INTRANASAL BID 11/14/20 loperamide [Imodium A-D] 2 mg PO Q6H PRN 11/14/20 metoprolol succinate 50 mg PO DAILY 11/14/20 promethazine 25 mg PO BID PRN PRN 11/14/20 lamotrigine 25 mg tablet 150 mg PO DAILY 01/11/21 insulin lispro [Humalog KwikPen Insulin] 10 unit SUBCUT TIDAC 01/13/21 potassium chloride [K-Tab] 40 meq PO DAILY 01/13/21 dicyclomine 20 mg PO TIDAC 01/14/21 pantoprazole 40 mg PO BID 01/14/21 insulin glargine 25 unit SC DAILY #0 ml 01/19/21 lisinopril 10 mg PO QHS #0 tab 01/19/21 oxycodone 5 mg PO Q6H PRN PRN 3 Days #10 tab 01/19/21 Hospital Course Operations None Procedures None Summary of Care Provided Minutes Spent on Discharge: 37 Hospital Course: Per HPI: TALAT HAN, is a 55 F with a significant history of schizoaffective disorder and tobacco abuse who presents to the emergency department with a fall that occurred about an hour prior to presentation. Reportedly patient felt lightheaded; shaky and weak and fell. She has a chronic pain on her right hip and right buttocks. She has bilateral splints on her ankles. With her fall she developed pain in her left leg. Patient denies any change in urinary frequency. However she reports difficulty in urination for the past 2 weeks. She report diarrhea for the past 2 or 3 days. Hospital Course: 1. Septic shock secondary to acute cystitis due to pansensitive E. coli with weakness and a fall leading to a closed fracture of the proximal fibula on the left -Lactic acid is resolved, urine culture with E. coli -Completed 5 days of Cipro, UTI and shock is resolved -Orthopedic surgery was contacted by the ED physician and at that time they recommended a brace. -She will be weightbearing as tolerated, can resume home narcotics and medications -PT/OT for evaluation and possible discharge recommendations placement -X-ray of the right knee was negative for fracture -I discussed with her the plan for discharge to the assisted today for physical therapy. She expressed understanding of the risk and benefits of going to the assisted and would like to go today. I do recommend that she will be nonweightbearing as tolerated on that left leg while undergoing physical therapy. She will likely need the brace intact for 4 to 6 weeks and will likely need left knee x-rays to demonstrate union and outpatient orthopedic surgery follow-up. 2. DM2 -We will continue to monitor blood sugar, will continue with her home insulin and make adjustments as necessary based on her blood sugars -Accu-Cheks AC at bedtime 3. HTN/HLD/CAD status post stent -Blood pressure stable -Continue with her Eliquis as well as her aspirin and her Plavix -Continue with Lipitor -We will restart her home lisinopril but still hold her Lasix secondary to her pressures and her recent kidney dysfunction -Echo from 2019 EF of 60%, however is a challenging study and an RV systolic pressure could not be estimated 4. Stage II COPD/RACHEL/asthma/pulmonary hypertension -We will monitor, she will need to have a walking pulse ox prior to discharge -Follow-up with pulmonology as an outpatient -Continue with duo nebs -We will discharge her on her home inhalers 5. GERD/history of gastric bypass -Stable -Continue with Tums, possibly takes Carafate at home if necessary can add on here 6. History of PE -Continue with Eliquis 7. History of schizophrenia -Continue with her home medications Physical Exam Const alert, oriented x3 and no apparent distress General Appearance: cooperative HEENT normocephalic and moist oral mucous membranes Eyes PERRL, EOMs intact bilaterally and conjunctivae normal Neck supple and no JVD Resp normal respiratory effort, no retractions, no use of accessory muscles and clear to auscultation bilaterally Auscultation: Negative for crackles, rales, rhonchi or wheezes Cardio regular rate, regular rhythm, S1 normal heart sound, S2 normal heart sound and no murmurs GI soft to palpation, non-tender and non-distended; Negative for hepatosplenomegaly Extremity no clubbing, cyanosis or edema Skin Skin Narrative: Ecchymosis of the right lateral knee, with some tenderness to palpation. Left leg is in a brace for her proximal fibula fracture Neuro no focal motor deficits and no sensory deficits noted Psych affect normal Appearance: appropriate Weight / BMI Weight Weight: 229 lb 0.964 oz Body Mass Index (BMI) 39.7 ABG / Lab / Microbiology Data Result Diagrams: 01/18/21 06:42 01/18/21 06:42 Laboratory: Laboratory Results - last 24 hr 01/18/21 12:05: POC Glucose 56 L 01/18/21 14:03: POC Glucose 169 H 01/18/21 16:26: POC Glucose 164 H 01/18/21 20:36: POC Glucose 98 01/19/21 09:07: POC Glucose 137 H Microbiology: Microbiology 01/18/21 16:25 Nasal Secretion SARS-CoV-2 Antigen (Rapid) - Final 01/13/21 02:42 Blood Culture (Wb) - Anticubital Right Blood Culture - Final No growth in 5 days. 01/13/21 01:50 Blood Culture (Wb) - Anticubital Left Blood Culture - Final No growth in 5 days. 01/13/21 02:25 Urine, Clean Catch Urine Culture - Final Presumptive E. coli 01/13/21 10:10 Stool C. difficile DNA Amplification - Final 01/13/21 03:25 Nasal Secretion SARS-CoV-2 Antigen (Rapid) - Final Meaningful Use Info Meaningful Use Diagnoses (Choose all that apply): None applicable Discharge Plan Admission Admit Date/Time: 01/13/21 04:20 Attending Provider: Wang Rosen Primary Care Provider: Janel Taylor Consulting Providers: Lucas Willoughby Discharge Orders/Prescriptions Prescriptions: New oxycodone 5 mg Tablet 5 mg PO Q6H PRN PRN (Reason: Pain Score 6-10) 3 Days Qty: 10 RF: 0 Continued sucralfate 1 gram tablet 1 g PO QACHS RF: 0 atorvastatin 80 MG tablet 80 mg PO QHS RF: 0 nitroglycerin 0.4 MG tablet, sublingual 0.4 mg SL PRN PRN (Reason: Cardiac/Chest Pain) RF: 0 risperidone 4 mg tablet 4 mg PO QHS RF: 0 trazodone 100 MG tablet 200 mg PO QHS PRN (Reason: Insomnia) RF: 0 pregabalin 75 MG capsule 75 mg PO TID RF: 0 tizanidine 4 MG tablet 6 mg PO TID PRN PRN (Reason: Spasms) RF: 0 buspirone 30 mg tablet 30 mg PO BID RF: 0 mirabegron 25 MG tablet extended release 24 hr 25 mg PO DAILY RF: 0 apixaban 5 MG tablet 5 mg PO BID RF: 0 acidophilus-pectin, citrus 1 TABLET tablet 2 tab PO BID RF: 0 metoclopramide HCl 10 MG tablet 10 mg PO 4X/DAY PRN (Reason: Headache) Qty: 20 RF: 0 clopidogrel 75 mg tablet 75 mg PO DAILY RF: 0 sennosides-docusate sodium [Stool Softener-Stimulant Laxat] 8.6-50 mg Tablet 2 tab PO BID PRN PRN (Reason: Constipation) Qty: 0 RF: 0 promethazine 25 mg Tablet 25 mg PO BID PRN PRN (Reason: Nausea) RF: 0 escitalopram oxalate 20 mg Tablet 20 mg PO DAILY RF: 0 Advair HFA 230-21 mcg/actuation Hfa Aerosol Inhaler 2 puff INHALATION BID RF: 0 albuterol sulfate 1 PUFF HFA aerosol inhaler 2 puff IH Q4H PRN PRN (Reason: SOB &/or Wheezing ) RF: 0 loperamide [Imodium A-D] 2 mg Capsule 2 mg PO Q6H PRN (Reason: Diarrhea) RF: 0 fluticasone propionate 50 mcg/actuation [place],Suspension 1 spray INTRANASAL BID RF: 0 amlodipine 2.5 mg tablet 10 mg PO DAILY RF: 0 metoprolol succinate 25 mg tablet extended release 24 hr 50 mg PO DAILY RF: 0 lamotrigine 25 mg tablet 150 mg PO DAILY RF: 0 potassium chloride [K-Tab] 20 mEq tablet extended release 40 meq PO DAILY RF: 0 insulin lispro [Humalog KwikPen Insulin] 100 unit/mL insulin pen 10 unit subcut TIDAC RF: 0 pantoprazole 40 mg Tablet,Delayed Release (Dr/Ec) 40 mg PO BID RF: 0 dicyclomine 10 MG capsule 20 mg PO TIDAC RF: 0 tiotropium bromide 2.5 mcg/actuation mist 2 puff INHALATION DAILY Qty: 4 RF: 3 montelukast 10 mg tablet 10 mg PO QHS Qty: 30 RF: 5 Changed lisinopril 20 MG tablet 10 mg PO QHS Qty: 0 RF: 0 insulin glargine 100 UNITS/ML insulin pen 25 unit SC DAILY Qty: 0 RF: 0 Held furosemide 20 MG tablet 20 mg PO DAILY RF: 0 Hold Instructions: Resume on 01/22/21. Discontinued hydrocodone-acetaminophen 5-325 mg tablet 1 tab PO Q6H PRN (Reason: pain) 3 Days Qty: 12 RF: 0 Referrals / Follow Up: Janel Taylor MD [Primary Care Provider] - Within 1 Month Disposition Disposition (needs filled in before D/C Order can be placed): Alf Facility Charges/Coding Visit Charges Inpatient E&M: 03468 Disch Hosp
[2021-01-19 11:30] LABS: Bedside Glucose 143 mg/dL (70-110)
--- NOTE | 2021-01-19 13:05 | NURSING ---
report called to [facility] for transfer, awaiting transport for discharge
== END 2021-01-19 13:31 | disposition skilled nursing facility (03) | DRG 690 ==
LOC: ED 04:06 → ICU 04:38 → MS2 01-14 08:29
PROVIDERS: Admitting Provider Hospitalist; Emergency Provider Emergency Medicine; PCP Family Medicine; Visit Provider Family Medicine
DX: N30.00 Acute cystitis without hematuria (principal); Z68.42 Body mass index [BMI] 45.0-49.9, adult; B96.20 Unspecified Escherichia coli [E. coli] as the cause of diseases classified elsewhere; S89.202A Unspecified physeal fracture of upper end of left fibula, initial encounter for closed fracture; J43.9 Emphysema, unspecified; I27.20 Pulmonary hypertension, unspecified; E11.65 Type 2 diabetes mellitus with hyperglycemia; Z20.822 Contact with and (suspected) exposure to COVID-19; Z23 Encounter for immunization; I25.10 Atherosclerotic heart disease of native coronary artery without angina pectoris; I10 Essential (primary) hypertension; E78.5 Hyperlipidemia, unspecified; F25.9 Schizoaffective disorder, unspecified; G89.4 Chronic pain syndrome; G47.33 Obstructive sleep apnea (adult) (pediatric); K21.9 Gastro-esophageal reflux disease without esophagitis; E66.01 Morbid (severe) obesity due to excess calories; W19.XXXA Unspecified fall, initial encounter; Y93.9 Activity, unspecified; Y92.9 Unspecified place or not applicable; Y99.9 Unspecified external cause status; F17.210 Nicotine dependence, cigarettes, uncomplicated; Z91.14 Patient's other noncompliance with medication regimen; Z88.0 Allergy status to penicillin; Z88.2 Allergy status to sulfonamides; Z99.81 Dependence on supplemental oxygen; Z79.891 Long term (current) use of opiate analgesic; Z79.01 Long term (current) use of anticoagulants; Z79.02 Long term (current) use of antithrombotics/antiplatelets; Z79.4 Long term (current) use of insulin; Z79.899 Other long term (current) drug therapy; I25.2 Old myocardial infarction; Z86.711 Personal history of pulmonary embolism; Z95.5 Presence of coronary angioplasty implant and graft; Z98.84 Bariatric surgery status
CPT/HCPCS: 36415; 71045; 73562; 73590; 80048; 80053; 81001; 82962; 83605; 84484; 85025; 87040; 87086; 87088; 87186; 87426; 87493; 93005; 94640; 97110; 97162; 97166; 97530; 97535; 99285; 99406; G0008; J2185; J7030; J7040; J7050; 90686; A4216; J0744; J2405

== ENCOUNTER 2021-02-16 11:46 | Emergency (ER) | payer MEDICARE, MEDICAID, SELFPAY ==
[2021-02-16 11:47] VITALS: BP 132/98; PULSE 119; RESP 18; TEMP 37.1; O2SAT 95; BMI 36.0
--- NOTE | 2021-02-16 12:49 | EKG12_ITS ---
Test Reason : ABDOMINAL PAIN Blood Pressure : / mmHG Vent. Rate : 109 BPM Atrial Rate : 109 BPM P-R Int : 144 ms QRS Dur : 086 ms QT Int : 362 ms P-R-T Axes : 051 042 042 degrees QTc Int : 487 ms Sinus tachycardia Otherwise normal ECG Confirmed by JAZZMINE FRANCISCO MD ([id number]), newspaper managing editor DMITRI LANDRUM ([id number]) on 02/17/2021 1:05:15 PM Also confirmed by JAZZMINE FRANCISCO MD ([id number]), newspaper managing editor MARTHA SCOTT ([id number]) on 02/17/2021 1:25:44 PM Referred By: IFEANYI TREVIÑO Confirmed By:JAZZMINE FRANCISCO MD
--- NOTE | 2021-02-16 12:49 | CT_ITS ---
STUDY: CT ABDOMEN AND PELVIS WITH CONTRAST REASON FOR EXAM: Female, 55 years old. Abdominal pain. Prior gastric bypass surgery. RADIATION DOSAGE (If Supplied By Facility): CTDIvol = ( 16.98 ) mGy, DLP = ( 1233.79 ) mGycm TECHNIQUE: Transaxial images were obtained from the dome of the diaphragm to the symphysis pubis without oral contrast. IV 100mL Isovue-300 was administered. Sagittal and coronal images were reconstructed. Individualized dose optimization techniques were used for this CT. COMPARISON: Comparison is made with prior examination dated 12/02/2020. FINDINGS: The visualized lung bases are unremarkable. Coronary artery calcification. There is decreased attenuation of the liver consistent with steatosis. There is a 2.3 cm hypodense nodule in the inferior medial aspect of the right lobe of the liver suggestive of a small cyst. The patient is status post cholecystectomy. Normal spleen. Normal pancreas. Normal bilateral adrenal glands. Normal right kidney. Normal left kidney. Status post subtotal gastrectomy. Small sliding hiatal hernia. Normal small intestine. There are multiple colonic diverticula consistent with diverticulosis. There are surgical clips in the region of the appendix consistent with a prior appendectomy. There is diffuse atherosclerotic calcification of the abdominal aorta and its major visceral branches, without a demonstrated aneurysm. Normal inferior vena cava. Normal retroperitoneum. Normal urinary bladder. Is evidence of prior anterior abdominal wall hernia repair utilizing a mesh. There are diffuse degenerative changes of the visualized lumbar spine. Status post right total hip replacement. CT/Abdomen/Pelvis W IV Cont ONLY IMPRESSION: Status post cholecystectomy. Fatty infiltration of the liver. Findings suggestive of a 2.3 cm cyst in the inferior medial aspect of the right lobe. Sigmoid diverticulosis. Electronically Signed: Manuelito Silva MD at 14:10 EST , Service support ,
--- NOTE | 2021-02-16 12:52 | EDS_ITS ---
HPI HPI - GI History of Present Illness Chief Complaint: Abd Pain Informant: patient Abdominal Pain/Flank Pain Onset: Days Context: Gradual Onset Timing: Continuous Current Severity: Mild Maximum Severity: Mild Nausea/Vomiting/Emesis GI Symptom: Positive for Nausea and Vomiting Onset: Today, Yesterday and Days Severity: Mild Diarrhea/Melena/Hematochezia GI Symptom: Negative for Diarrhea, Melena and Hematochezia Associated Symptoms Associated Symptoms: Negative for Dysuria, Frequency, Hematuria and Urgency Narrative Narrative: 55-year-old female extensive past medical history including diabetes, anemia, COPD, hypertension, schizophrenia and she is on Eliquis but is unsure why. States she had nausea vomiting last couple days. Associated mid periumbilical abdominal pain. Which she states has been going on 2 days now also. Mild dysuria. No fever. No falls or head trauma. No diarrhea or constipation. Prior similar symptoms: No Recent Illness/Hospitalization: No PFSH PFSH Medical History Anemia Asthma Benign essential hypertension Bleeding tendency Chest pain Chronic cough Chronic narcotic use COPD (chronic obstructive pulmonary disease) Current use of insulin Delayed surgical wound healing Diabetes Emphysema of lung Gastroesophageal reflux disease High cholesterol Hip osteoarthritis History of pulmonary embolism History of stress test Hypertension Irregular heart beat Irritable bowel Morbid obesity Morbid obesity with BMI of 45.0-49.9, adult Myocardial infarct On home oxygen therapy RACHEL (obstructive sleep apnea) Pancreatitis Peptic ulcer Pulmonary hypertension Schizoaffective disorder Schizophrenia Sleep apnea Smoker Spinal stenosis of lumbar region at multiple levels Stage 2 moderate COPD by GOLD classification Thyroid nodule Tobacco abuse Ulcer Vitamin D deficiency Home Medications atorvastatin 80 mg PO QHS 08/22/15 [History Last Taken 12/17/19 22:26] nitroglycerin 0.4 mg SL PRN PRN 11/08/16 [History Last Taken 11/01/17 0.4 MG] pregabalin 75 mg PO TID 03/08/18 [History Last Taken 12/18/19 14:40] risperidone 4 mg PO QHS 03/08/18 [History Last Taken 12/17/19 22:27] tizanidine 6 mg PO TID PRN PRN 03/08/18 [History Last Taken 12/18/19 14:37] trazodone 200 mg PO QHS PRN 03/08/18 [History Last Taken 12/17/19 22:26] furosemide 20 mg PO DAILY 11/20/18 [History Last Taken 12/16/19] mirabegron 25 mg PO DAILY 11/20/18 [History Last Taken 12/18/19 08:47] apixaban 5 mg PO BID 05/02/19 [History Last Taken 12/18/19 10:22] buspirone 30 mg tablet 30 mg PO BID tab 06/27/19 [History Last Taken 12/18/19 08:46] sucralfate 1 gram tablet 1 g PO QACHS 06/27/19 [History Last Taken 12/18/19 16:13] tiotropium bromide 2.5 mcg/actuation mist for inhalation 2 puff INHALATION DAILY #4 g 09/30/19 [Rx Last Taken 12/18/19 13:02] montelukast 10 mg tablet 10 mg PO QHS #30 tab 10/30/19 [Rx Last Taken 12/17/19 22:26] acidophilus-pectin, citrus 2 tab PO BID 12/16/19 [History Last Taken 12/18/19 10:25] metoclopramide HCl 10 mg PO 4X/DAY PRN #20 tab 03/16/20 [Rx Last Taken Unknown] clopidogrel 75 mg PO DAILY 07/31/20 [History Last Taken Unknown] sennosides-docusate sodium [Stool Softener-Stimulant Laxat] 2 tab PO BID PRN PRN #0 tab 08/11/20 [Rx Last Taken Unknown] Advair HFA 2 puff INHALATION BID 11/14/20 [History Last Taken Unknown] albuterol sulfate 2 puff IH Q4H PRN PRN 11/14/20 [History Last Taken Unknown] amlodipine 10 mg PO DAILY 11/14/20 [History Last Taken Unknown] escitalopram oxalate 20 mg PO DAILY 11/14/20 [History Last Taken Unknown] fluticasone propionate 1 spray INTRANASAL BID 11/14/20 [History Last Taken Unknown] loperamide [Imodium A-D] 2 mg PO Q6H PRN 11/14/20 [History Last Taken Unknown] metoprolol succinate 50 mg PO DAILY 11/14/20 [History Last Taken Unknown] promethazine 25 mg PO BID PRN PRN 11/14/20 [History Last Taken Unknown] lamotrigine 25 mg tablet 150 mg PO DAILY 01/11/21 [History Last Taken Unknown] insulin lispro [Humalog KwikPen Insulin] 10 unit SUBCUT TIDAC 01/13/21 [History Last Taken Unknown] potassium chloride [K-Tab] 40 meq PO DAILY 01/13/21 [History Last Taken Unknown] dicyclomine 20 mg PO TIDAC 01/14/21 [History Last Taken Unknown] pantoprazole 40 mg PO BID 01/14/21 [History Last Taken Unknown] insulin glargine 25 unit SC DAILY #0 ml 01/19/21 [Rx Last Taken 12/18/19 10:25] lisinopril 10 mg PO QHS #0 tab 01/19/21 [Rx Last Taken 12/17/19 22:26] oxycodone 5 mg PO Q6H PRN PRN 3 Days #10 tab 01/19/21 [Rx Last Taken Unknown] cephalexin 500 mg PO Q6H 10 Days #40 cap 02/16/21 [Rx Last Taken Unknown] ondansetron 4 mg PO Q4H 3 Days #10 tab 02/16/21 [Rx Last Taken Unknown] Allergy/AdvReac Type Severity Reaction Status Date / Time amoxicillin Allergy Itching Verified 02/16/21 11:47 erythromycin base Allergy Unknown Verified 02/16/21 11:47 methadone Allergy Itching Verified 02/16/21 11:47 metolazone Allergy Unknown Verified 02/16/21 11:47 Penicillins Allergy Hives Verified 02/16/21 11:47 Sulfa (Sulfonamide Allergy Hives Verified 02/16/21 11:47 Antibiotics) clarithromycin [From Biaxin] AdvReac Nausea Verified 02/16/21 11:47 ibuprofen AdvReac 3 BLEEDING Verified 02/16/21 11:47 ULCERS morphine AdvReac HEADACHE Verified 02/16/21 11:47 oxycodone [From Percocet] AdvReac Itching Verified 02/16/21 11:47 Family History Mother Heart disease Cancer ovarian Father Hypertension Arthritis Hyperlipemia Grandmother Breast cancer Heart disease Grandfather Heart disease Surgical History H/O cardiac catheterization H/O heart artery stent History of appendectomy history of carpal tunnel release left wrist History of carpal tunnel surgery of left wrist History of cholecystectomy History of gastric bypass History of PTCA History of right ankle surgery history of right hip surgery History of tonsillectomy Social History household members: none Smoking Status: Current every day smoker tobacco type: cigarettes Tobacco: How many years used: 39 alcohol intake: never substance use type: does not use caffeine: No what type of physical activity do you participate in: none ROS ROS ED ROS Narrative Abdominal pain. Nausea and vomiting. Dysuria. Review of Systems ROS Unobtainable: Denies due to encephalopathy Constitutional Constitutional ED: Denies fever(s) ENT ENT ED: Denies ear pain Cardiovascular Cardiovascular: Denies chest pain Respiratory/Chest Respiratory/Chest: Denies cough or dyspnea Gastrointestinal Gastrointestinal: Reports abdominal pain and nausea; Denies constipation, diarrhea or melena Genitourinary Genitourinary ED: Reports dysuria Musculoskeletal Musculoskeletal: Denies myalgias Integumentary Denies rash Neurologic Neurologic: Denies headache(s) Psychiatric Psychiatric: Denies depression Hematologic/Lymphatic Hematologic/Lymphatic: Denies easy bruising Allergic/Immunologic Allergic/Immunologic ED: Denies urticaria EXAM Physical Exam Narrative Exam Narrative: Middle-aged female no acute distress. Vital signs stable afebrile. She does look septic or toxic. HEENT exam unremarkable. Moist remembers. Neck nontender no lymphadenopathy. Lungs clear to auscultation bilaterally. Heart regular rhythm tachycardic with a rate about 120. Abdomen soft nondistended normal bowel sounds no peritoneal signs. Diffusely nonlocalizing tender periumbilically. Right upper and right lower quadrants are unremarkable. There is no hernia or mass. No obvious obstruction. Well-healed vertical epigastric incision from prior gastric bypass. Moving all 4 extremities. Calves nontender without edema. Neurologically she is awake and alert. Following commands and answering questions. Const Vital Signs: 02/16/21 11:47 02/16/21 14:24 Temperature 98.8 F Temperature Source Temporal Pulse Rate 119 H Respiratory Rate 18 16 Blood Pressure 132/98 H Blood Pressure Mean 109 Pulse Ox 95 Oxygen Delivery Method Room Air Positive well nourished, well developed and obese; Negative for cachectic, contractures or unkempt General Appearance ED: well developed and NAD; Negative for unkempt, cachectic, contractures or pallor Nutritional Appearance: obese; Negative for cachectic HEENT Reports moist mucous membranes normocephalic and atraumatic Eyes PERRL and EOMs intact bilaterally Neck no lymphadenopathy, supple and no JVD General: Negative for tenderness Resp normal respiratory effort and clear to auscultation bilaterally Auscultation: Negative for rales, rhonchi or wheezes Cardio Rate: tachycardic GI non-tender and no masses; Negative for non-distended Inspection: Negative for abdominal distention Auscultation: normoactive bowel sounds; Negative for hyperactive bowel sounds or hypoactive bowel sounds Palpation: soft and tender; Negative for guarding, rigid or rebound tenderness present Back/Spine no CVA tenderness General Back: Negative for CVA tenderness Extremity full ROM General Extremety ED: Negative for edema or tenderness General Extremity: Negative for edema Neuro moves all extremities Sensorium / Orientation: alert, oriented to person, oriented to place and oriented to time; Negative for orientation impaired Motor Exam: strength 5/5 throughout Psych mental status grossly normal and thought process normal Appearance: Negative for unkempt Skin no wounds General Skin Exam: Negative for jaundice or pallor Lesions: no lesions Rashes: no rashes MDM MDM MDM Narrative Medical decision making narrative: 55-year-old female with extensive past medical history. Prior gastric bypass and she believes a cholecystectomy. With abdominal pain with nausea and vomiting. CAT scan labs are being obtained. She will be treated with IV fluids and IV Zofran. Lab Data Attestation: I reviewed the patient's lab results. Lab results narrative: CBC shows an elevated white count of 14.3. Hemoglobin is 16. No bands. Electrolytes show sodium 132 gap 10 BUN of 6 creatinine 0.9. Glucose 229. Liver enzymes unremarkable other than alkaline phosphatase of 276. Lipase is only 35. Urinalysis shows 150 ketones. Positive nitrates. 5-10 white cells. 5-10 epithelial cells 3+ bacteria. No red cells. A culture will be sent. I will treat as a UTI unless the CAT scan shows another cause of her pain. CAT scan does not show any acute abnormality as read by the radiologist. Labs: Laboratory Results - last 24 hr 02/16/21 02/16/21 02/16/21 12:15 12:15 14:31 WBC 14.3 H RBC 5.93 H Hgb 16.0 H Hct 48.3 H MCV 81.5 MCH 27.0 MCHC 33.1 RDW Std Deviation 46.3 H RDW Coeff of Kaycee 15.8 H Plt Count 406 MPV 9.9 Immature Gran % (Auto) 0.400 Neut % (Auto) 81.8 H Lymph % (Auto) 7.4 L [place] % (Auto) 9.6 Eos % (Auto) 0.1 Baso % (Auto) 0.7 Absolute Neuts (auto) 11.7 H Absolute Lymphs (auto) 1.06 Nucleated RBC % 0 Sodium 132 L Potassium 3.8 Chloride 97 L Carbon Dioxide 25.0 Anion Gap 10 BUN 6 L Creatinine 0.90 Estim Creat Clear Calc 60.99 Est GFR (MDRD) Af Amer 84 Est GFR (MDRD) Non-Af 69 BUN/Creatinine Ratio 6.7 L Glucose 229 H Calcium 10.9 H Total Bilirubin 1.00 AST 16 ALT 24 Alkaline Phosphatase 276 H Total Protein 8.5 H Albumin 3.9 Globulin 4.6 H Albumin/Globulin Ratio 0.8 L Lipase 35 L Urine Color Yellow Urine Clarity Cloudy Urine pH 6.0 Ur Specific Walsh 1.020 Urine Protein 100 H Urine Glucose (UA) 50 H Urine Ketones 150 A* Urine Occult Blood 10 H Urine Nitrite Positive H Urine Bilirubin 1 H Urine Urobilinogen 4 H Ur Leukocyte Esterase 500 H Urine RBC 0 SEEN Urine WBC 5-10 SEEN Ur Squamous Epith Cells 5-10 SEEN Urine Bacteria 3+ Urine Mucus RARE Rhythm Strip Rhythm Strip: Sinus Tach Rate: 109 Ectopy: None EKG Initial EKG: Attestation: I personally reviewed and interpreted this EKG as follows: Interpretation: Sinus Rhythm and Sinus Tachycardia Comments: Sinus tachycardia rate of 109 no acute signs of SD or ischemia. No old EKG available for comparison. Discharge Plan Triage Chief Complaint: Abd Pain Other Complaint: General Illness ED Provider: Hema Feng Dx/Rx/DC Orders Clinical Impression: Abdominal pain, Acute UTI, Nausea & vomiting Instructions: Abdominal Pain, ED CYSTITIS Female Adult Prescriptions: New cephalexin 500 mg capsule 500 mg PO Q6H 10 Days Qty: 40 RF: 0 ondansetron 4 mg tablet,disintegrating 4 mg PO Q4H 3 Days Qty: 10 RF: 0 No Action sucralfate 1 gram tablet 1 g PO QACHS RF: 0 atorvastatin 80 MG tablet 80 mg PO QHS RF: 0 nitroglycerin 0.4 MG tablet, sublingual 0.4 mg SL PRN PRN (Reason: Cardiac/Chest Pain) RF: 0 risperidone 4 mg tablet 4 mg PO QHS RF: 0 trazodone 100 MG tablet 200 mg PO QHS PRN (Reason: Insomnia) RF: 0 pregabalin 75 MG capsule 75 mg PO TID RF: 0 tizanidine 4 MG tablet 6 mg PO TID PRN PRN (Reason: Spasms) RF: 0 buspirone 30 mg tablet 30 mg PO BID RF: 0 furosemide 20 MG tablet 20 mg PO DAILY RF: 0 Hold Instructions: Resume on 01/22/21. mirabegron 25 MG tablet extended release 24 hr 25 mg PO DAILY RF: 0 apixaban 5 MG tablet 5 mg PO BID RF: 0 acidophilus-pectin, citrus 1 TABLET tablet 2 tab PO BID RF: 0 metoclopramide HCl 10 MG tablet 10 mg PO 4X/DAY PRN (Reason: Headache) Qty: 20 RF: 0 clopidogrel 75 mg tablet 75 mg PO DAILY RF: 0 sennosides-docusate sodium [Stool Softener-Stimulant Laxat] 8.6-50 mg Tablet 2 tab PO BID PRN PRN (Reason: Constipation) Qty: 0 RF: 0 promethazine 25 mg Tablet 25 mg PO BID PRN PRN (Reason: Nausea) RF: 0 escitalopram oxalate 20 mg Tablet 20 mg PO DAILY RF: 0 Advair HFA 230-21 mcg/actuation Hfa Aerosol Inhaler 2 puff INHALATION BID RF: 0 albuterol sulfate 1 PUFF HFA aerosol inhaler 2 puff IH Q4H PRN PRN (Reason: SOB &/or Wheezing ) RF: 0 loperamide [Imodium A-D] 2 mg Capsule 2 mg PO Q6H PRN (Reason: Diarrhea) RF: 0 fluticasone propionate 50 mcg/actuation [place],Suspension 1 spray INTRANASAL BID RF: 0 amlodipine 2.5 mg tablet 10 mg PO DAILY RF: 0 metoprolol succinate 25 mg tablet extended release 24 hr 50 mg PO DAILY RF: 0 lamotrigine 25 mg tablet 150 mg PO DAILY RF: 0 potassium chloride [K-Tab] 20 mEq tablet extended release 40 meq PO DAILY RF: 0 insulin lispro [Humalog KwikPen Insulin] 100 unit/mL insulin pen 10 unit subcut TIDAC RF: 0 pantoprazole 40 mg Tablet,Delayed Release (Dr/Ec) 40 mg PO BID RF: 0 dicyclomine 10 MG capsule 20 mg PO TIDAC RF: 0 lisinopril 20 MG tablet 10 mg PO QHS Qty: 0 RF: 0 insulin glargine 100 UNITS/ML insulin pen 25 unit SC DAILY Qty: 0 RF: 0 oxycodone 5 mg Tablet 5 mg PO Q6H PRN PRN (Reason: Pain Score 6-10) 3 Days Qty: 10 RF: 0 tiotropium bromide 2.5 mcg/actuation mist 2 puff INHALATION DAILY Qty: 4 RF: 3 montelukast 10 mg tablet 10 mg PO QHS Qty: 30 RF: 5 Primary Care Provider: Janel Taylor Referrals: Janel Taylor MD [Primary Care Provider] - 3-5 Days Activity Restrictions/Additional Instructions: Your labs were unremarkable. As as well as your abdominal CAT scan. You have a urinary tract infection. We sent a urine culture. You will be treated with antibiotic Keflex 1 pill 4 times a day for 10 days. Zofran as needed for nausea. Follow-up with primary care physician. Return emergency department if feeling worse. Fluids and rest. Increase your diet slowly as tolerated. Disposition Disposition: Home, Self Care
[2021-02-16] MEDS: 0.9% Normal Saline 1,000 ML 1000 ML IV (13:09)
[2021-02-16] MEDS: Ondansetron 4 MG/2 ML Vial IV (13:09)
[2021-02-16 13:13] LABS: Absolute Lymphocyte Count 1.06 X10^3/uL (0.83-4.51); Absolute Neutrophil Count 11.7 X10^3/uL (2.0-7.7); Basophil% 0.7 % (0-1); Eosinophil# 0.01 X10^3/uL; Eosinophils% 0.1 % (0-5); Hematocrit 48.3 % (37-47); Lymphocyte # 1.06 X10^3/ul (0.83-4.51); Lymphocyte % 7.4 % (19-41); Mean Corp Hgb Conc 33.1 g/dL (32-36); Mean Corpuscular Volume 81.5 fL (81-99); Mean Platelet Vol. 9.9 fl (6.2-12.0); Monocyte# 1.37 X10^3/uL; Monocyte% 9.6 % (0-10); NRBC Flagged by Analyzer 0 % (0-5); Neutrophil # 11.74 X10^3/uL (2.7-7.7); Neutrophil % 81.8 % (47-70); Platelet Count 406 K/mm3 (150-450); RBC Distribution Width CV 15.8 % (11.6-14.6); RBC Distribution Width SD 46.3 fl (35.1-43.9); Red Blood Count 5.93 M/mm3 (4.2-5.4); White Blood Count 14.3 K/mm3 (4.4-11.0)
[2021-02-16 13:26] LABS: ALB/GLOB Ratio 0.8 RATIO (0.9-2.4); AST(SGOT) 16 U/L (15-37); Alanine Aminotransfer ALT/SGPT 24 U/L (13-56); Albumin, Serum 3.9 g/dL (3.2-5.0); Alkaline Phosphatase 276 U/L (45-117); Anion Gap 10 (5-15); BUN 6 mg/dL (7-18); BUN/Creat Ratio 6.7 RATIO (10-20); Calcium,Total 10.9 mg/dL (8.5-10.1); Chloride 97 mmol/L (98-107); EST Glomerular Filtration Rate 69 mL/min (>60); Est Glom Filt Rate - Afr Amer 84 mL/min (>60); Estimated Creatinine Clearance 60.99 ml/min; Globulin 4.6 g/dL (2.2-4.2); Glucose 229 mg/dL (74-106); Lipase 35 U/L (73-393); Potassium 3.8 mmol/L (3.5-5.1); Protein, Total 8.5 g/dL (6.4-8.2); Sodium Level 132 mmol/L (136-145)
[2021-02-16 14:24] VITALS: RESP 16
[2021-02-16 14:37] LABS: Color, Urine Yellow (Yellow); Glucose, Dipstick 50 mg/dl (Normal); Leukocyte Esterase-Dipstick 500 /ul (Negative); Nitrite-Dipstick Positive (Negative); Occult Blood-Urine 10 /ul (Negative); Protein-Dipstick 100 mg/dl (Negative); Red Blood Cells-Urine 0 SEEN /hpf (0-5); Urine Clarity Cloudy (Clear); Urine Urobilinogen 4 mg/dl (Normal)
[2021-02-16 14:38] LABS: Urine Bilirubin Dipstick 1 mg/dL (Negative)
[2021-02-16 14:44] LABS: Ketone-Dipstick 150 mg/dl (Negative)
[2021-02-16 14:49] LABS: Squamous Epithelial Cells - UA 5-10 SEEN /hpf (5-10); White Blood Cells 5-10 SEEN /hpf (0-5)
[2021-02-16 14:51] LABS: Bacteria 3+ /hpf (None Seen); Mucous, Urine RARE /hpf (<or=2+)
[2021-02-16] MEDS: Cephalexin 250 MG Capsule 500 MG PO (15:11)
== END 2021-02-16 15:19 | disposition home or self-care (01) ==
PROVIDERS: Emergency Provider Emergency Medicine; PCP Family Medicine
DX: N39.0 Urinary tract infection, site not specified (principal); R11.2 Nausea with vomiting, unspecified; R10.9 Unspecified abdominal pain; R19.7 Diarrhea, unspecified; J43.9 Emphysema, unspecified; E11.9 Type 2 diabetes mellitus without complications; I10 Essential (primary) hypertension; D64.9 Anemia, unspecified; E78.00 Pure hypercholesterolemia, unspecified; K58.9 Irritable bowel syndrome, unspecified; K21.9 Gastro-esophageal reflux disease without esophagitis; F25.9 Schizoaffective disorder, unspecified; E66.01 Morbid (severe) obesity due to excess calories; Z68.42 Body mass index [BMI] 45.0-49.9, adult; G47.33 Obstructive sleep apnea (adult) (pediatric); Z99.81 Dependence on supplemental oxygen; I27.20 Pulmonary hypertension, unspecified; E04.1 Nontoxic single thyroid nodule; E55.9 Vitamin D deficiency, unspecified; F17.210 Nicotine dependence, cigarettes, uncomplicated; Z79.899 Other long term (current) drug therapy; Z79.01 Long term (current) use of anticoagulants; Z79.891 Long term (current) use of opiate analgesic; Z79.4 Long term (current) use of insulin; I25.2 Old myocardial infarction; Z86.711 Personal history of pulmonary embolism; Z98.84 Bariatric surgery status
CPT/HCPCS: 74177; 80053; 81001; 83690; 85025; 87086; 87088; 93005; 96361; 96374; 99284; J7030; Q9967; A4216; J2405

== ENCOUNTER 2021-03-11 18:21 | Emergency (ER) | payer MEDICARE, MEDICAID, SELFPAY ==
[2021-03-11 18:22] VITALS: BP 117/79; PULSE 70; RESP 18; TEMP 36.9; O2SAT 100; BMI 39.2
[2021-03-11 18:55] VITALS: O2SAT 99
--- NOTE | 2021-03-11 18:55 | EKG12_ITS ---
Test Reason : CP Blood Pressure : / mmHG Vent. Rate : 067 BPM Atrial Rate : 067 BPM P-R Int : 150 ms QRS Dur : 088 ms QT Int : 436 ms P-R-T Axes : 018 -03 004 degrees QTc Int : 460 ms Normal sinus rhythm Normal ECG Confirmed by JAZZMINE FRANCISCO MD ([id number]), editor city DMITRI LANDRUM ([id number]) on 03/15/2021 10:30:00 AM Referred By: BB Confirmed By:JAZZMINE FRANCISCO MD
--- NOTE | 2021-03-11 18:56 | EDS_ITS ---
HPI History of Present Illness Chief Complaint: Chest Pain Onset/Context/Timing Onset: Today (This morning, around 10-11 hours prior to evaluation) Activity at onset: gradual and onset Timing: Continuous and Waxes and wanes Quality: Positive for Pain Location: Substernal (Radiating into mid upper back) Current Severity: Moderate Maximum Severity: Severe Worsened By: Nothing; Not Worsened By Breathing Relieved By: Nothing (Tried nitroglycerin, did not help) Associated Symptoms: Positive for Nausea, Dyspnea, Cough (2-3d) and Lightheadedness (when took NTG only); Negative for Vomiting, Diaphoresis, Fever, Acid Reflux and Palpitations Narrative Narrative: Patient with a history of 5 stents has had this chest discomfort all due to, it has been waxing and waning but has not gone away completely. Nitroglycerin did not seem to do anything. [place] similar prior [place] except in the past to involved her left upper extremity, today it has not involved either arm, just going into her back. She states she is having trouble describing it, it just hurts but does not feel sharp/tearing. No sensation of impending doom. No presyncope or syncope. Compliant with her clopidogrel and Eliquis, she takes the latter for history of blood clots she states, with pulmonary emboli on her past medical history. She states she is also felt ill with a worse cough than usual for the past 2 or 3 days. She was in brief contact with her neighbor who is very sick but I do not know if he has Covid or not. This patient is vaccinated against Covid. [facility] Medical History Anemia Asthma Benign essential hypertension Bleeding tendency Chest pain Chronic cough Chronic narcotic use COPD (chronic obstructive pulmonary disease) Current use of insulin Delayed surgical wound healing Diabetes Emphysema of lung Gastroesophageal reflux disease High cholesterol Hip osteoarthritis History of pulmonary embolism History of stress test Hypertension Irregular heart beat Irritable bowel Morbid obesity Morbid obesity with BMI of 45.0-49.9, adult Myocardial infarct On home oxygen therapy RACHEL (obstructive sleep apnea) Pancreatitis Peptic ulcer Pulmonary hypertension Schizoaffective disorder Schizophrenia Sleep apnea Smoker Spinal stenosis of lumbar region at multiple levels Stage 2 moderate COPD by GOLD classification Thyroid nodule Tobacco abuse Ulcer Vitamin D deficiency Home Medications atorvastatin 80 mg PO QHS 08/22/15 [History Last Taken 12/17/19 22:26] nitroglycerin 0.4 mg SL PRN PRN 11/08/16 [History Last Taken 11/01/17 0.4 MG] pregabalin 75 mg PO TID 03/08/18 [History Last Taken 12/18/19 14:40] risperidone 4 mg PO QHS 03/08/18 [History Last Taken 12/17/19 22:27] tizanidine 6 mg PO TID PRN PRN 03/08/18 [History Last Taken 12/18/19 14:37] trazodone 200 mg PO QHS PRN 03/08/18 [History Last Taken 12/17/19 22:26] furosemide 20 mg PO DAILY 11/20/18 [History Last Taken 12/16/19] mirabegron 25 mg PO DAILY 11/20/18 [History Last Taken 12/18/19 08:47] apixaban 5 mg PO BID 05/02/19 [History Last Taken 12/18/19 10:22] buspirone 30 mg tablet 30 mg PO BID tab 06/27/19 [History Last Taken 12/18/19 08:46] sucralfate 1 gram tablet 1 g PO QACHS 06/27/19 [History Last Taken 12/18/19 16:13] tiotropium bromide 2.5 mcg/actuation mist for inhalation 2 puff INHALATION DAILY #4 g 09/30/19 [Rx Last Taken 12/18/19 13:02] montelukast 10 mg tablet 10 mg PO QHS #30 tab 10/30/19 [Rx Last Taken 12/17/19 22:26] acidophilus-pectin, citrus 2 tab PO BID 12/16/19 [History Last Taken 12/18/19 10:25] metoclopramide HCl 10 mg PO 4X/DAY PRN #20 tab 03/16/20 [Rx Last Taken Unknown] clopidogrel 75 mg PO DAILY 07/31/20 [History Last Taken Unknown] sennosides-docusate sodium [Stool Softener-Stimulant Laxat] 2 tab PO BID PRN PRN #0 tab 08/11/20 [Rx Last Taken Unknown] Advair HFA 2 puff INHALATION BID 11/14/20 [History Last Taken Unknown] albuterol sulfate 2 puff IH Q4H PRN PRN 11/14/20 [History Last Taken Unknown] amlodipine 10 mg PO DAILY 11/14/20 [History Last Taken Unknown] escitalopram oxalate 20 mg PO DAILY 11/14/20 [History Last Taken Unknown] fluticasone propionate 1 spray INTRANASAL BID 11/14/20 [History Last Taken Unknown] loperamide [Imodium A-D] 2 mg PO Q6H PRN 11/14/20 [History Last Taken Unknown] metoprolol succinate 50 mg PO DAILY 11/14/20 [History Last Taken Unknown] promethazine 25 mg PO BID PRN PRN 11/14/20 [History Last Taken Unknown] lamotrigine 25 mg tablet 150 mg PO DAILY 01/11/21 [History Last Taken Unknown] insulin lispro [Humalog KwikPen Insulin] 10 unit SUBCUT TIDAC 01/13/21 [History Last Taken Unknown] potassium chloride [K-Tab] 40 meq PO DAILY 01/13/21 [History Last Taken Unknown] dicyclomine 20 mg PO TIDAC 01/14/21 [History Last Taken Unknown] pantoprazole 40 mg PO BID 01/14/21 [History Last Taken Unknown] insulin glargine 25 unit SC DAILY #0 ml 01/19/21 [Rx Last Taken 12/18/19 10:25] lisinopril 10 mg PO QHS #0 tab 01/19/21 [Rx Last Taken 12/17/19 22:26] oxycodone 5 mg PO Q6H PRN PRN 3 Days #10 tab 01/19/21 [Rx Last Taken Unknown] cephalexin 500 mg PO Q6H 10 Days #40 cap 02/16/21 [Rx Last Taken Unknown] ondansetron 4 mg PO Q4H 3 Days #10 tab 02/16/21 [Rx Last Taken Unknown] doxycycline monohydrate 100 mg PO BID #20 capsule 03/11/21 [Rx Last Taken Unknown] prednisone 20 mg PO DAILY #6 tablet 03/11/21 [Rx Last Taken Unknown] Allergy/AdvReac Type Severity Reaction Status Date / Time amoxicillin Allergy Itching Verified 02/16/21 11:47 erythromycin base Allergy Unknown Verified 02/16/21 11:47 methadone Allergy Itching Verified 02/16/21 11:47 metolazone Allergy Unknown Verified 02/16/21 11:47 Penicillins Allergy Hives Verified 02/16/21 11:47 Sulfa (Sulfonamide Allergy Hives Verified 02/16/21 11:47 Antibiotics) clarithromycin [From Biaxin] AdvReac Nausea Verified 02/16/21 11:47 ibuprofen AdvReac 3 BLEEDING Verified 02/16/21 11:47 ULCERS morphine AdvReac HEADACHE Verified 02/16/21 11:47 oxycodone [From Percocet] AdvReac Itching Verified 02/16/21 11:47 Family History Mother Heart disease Cancer ovarian Father Hypertension Arthritis Hyperlipemia Grandmother Breast cancer Heart disease Grandfather Heart disease Surgical History H/O cardiac catheterization H/O heart artery stent History of appendectomy history of carpal tunnel release left wrist History of carpal tunnel surgery of left wrist History of cholecystectomy History of gastric bypass History of PTCA History of right ankle surgery history of right hip surgery History of tonsillectomy Social History household members: none Smoking Status: Current every day smoker tobacco type: cigarettes Tobacco: How many years used: 39 alcohol intake: never substance use type: does not use caffeine: No what type of physical activity do you participate in: none ROS ROS ED Constitutional Constitutional ED: Denies chills or fever(s) Eyes Eyes: Denies change in vision or diplopia ENT ENT ED: Reports ear pain bilateral, nasal congestion and sore throat; Denies rhinorrhea Cardiovascular Cardiovascular: Reports chest pain; Denies palpitations Respiratory/Chest Respiratory/Chest: Reports cough and dyspnea Gastrointestinal Gastrointestinal: Reports nausea; Denies abdominal pain, diarrhea or vomiting Genitourinary Genitourinary ED: Denies dysuria or hematuria Musculoskeletal Musculoskeletal: Reports back pain; Denies neck pain Integumentary Denies abscess or rash Neurologic Neurologic: Denies headache(s), paresthesias or weakness Psychiatric Psychiatric: Denies anxiety or suicidal thoughts EXAM Physical Exam Const Vital Signs: 03/11/21 18:22 03/11/21 18:55 03/11/21 20:17 Temperature 98.5 F Temperature Source Oral Pulse Rate 70 82 Respiratory Rate 18 17 Respiratory Pattern Blood Pressure 117/79 122/72 H Blood Pressure Mean 91 88 Pulse Ox 100 99 98 Oxygen Delivery Method Nasal Cannula Nasal Cannula Oxygen Flow Rate (L/min) 2 2 03/11/21 21:30 03/11/21 21:53 Temperature 98.5 F Temperature Source Temporal Pulse Rate 74 74 Respiratory Rate 16 16 Respiratory Pattern Normal Blood Pressure 95/75 Blood Pressure Mean 81 Pulse Ox 96 Oxygen Delivery Method Nasal Cannula Oxygen Flow Rate (L/min) 2 Positive well nourished, well developed and obese General Appearance ED: well developed and NAD Nutritional Appearance: obese HEENT Reports TM's clear and moist mucous membranes HEENT Narrative: Posterior oropharynx erythematous without exudates or asymmetry. No trismus. Normal tongue no elevation. normocephalic and atraumatic Tympanic Membrane ED: Yes TM's clear Eyes PERRL and EOMs intact bilaterally Neck full ROM, no lymphadenopathy and supple General: Negative for tenderness Chest Wall inspection of chest normal and palpation of chest normal Resp normal respiratory effort Resp Narrative: Also slight end expiratory wheezes more prominent at the bases Auscultation: rhonchi lower bilaterally Cardio regular rate, regular rhythm and no murmurs GI non-tender and non-distended Auscultation: normoactive bowel sounds Palpation: soft Back/Spine no CVA tenderness General Back: other FROM Extremity normal to inspection General Extremety ED: Negative for edema, pulses abnormal or tenderness General Extremity: Negative for edema or pulses abnormal Neuro oriented x3, CN's II-XII intact bilaterally and no sensory deficits noted Sensorium / Orientation: awake and alert Motor Exam: strength 5/5 throughout Skin no rashes or lesions noted and no wounds Heart Score History: Moderately Suspicious ECG: Normal Age: >45 - <65 years Risk Factors: >/= 3 Risk Factors or History of CAD Troponin: </= Normal Limit Score: 4 MDM MDM MDM Narrative Medical decision making narrative: Patient's cardiac work-up is negative. She was asking for pain medication and has an allergy to morphine so she was given fentanyl and was asking for more pain medication because the fentanyl did not do anything. Therefore I reexamined her, I offered her a GI cocktail which she accepted she states it did not really help. She talks about having COPD and the fact that it is really felt like it has been worse, so we gave her a duo nebulizer treatment and this did help her pain some. Her x-ray shows a small left effusion, it is not large enough to tap. There is infiltrate associated with it in addition to the right lower lobe. Her white count is only 6.9. This is all consistent with Covid given the fact that we are seeing extremely high prevalence of it in the community, but her rapid test came back negative. Therefore, my recommendation since she is not hypoxic and otherwise clinically doing well, is to be discharged home, and treating her COPD exacerbation with half dose prednisone since she states she admits she is noncompliant with most of her medications including her insulin, does not check her blood sugar very often, but did have blood sugar elevations when she was on prednisone in the past. Will also prescribe antibiotics to cover the possibility of bacterial pneu monia, and send a Covid PCR in the meantime, advising that she quarantine as if she has Covid. She is amenable to that plan. Lab Data Attestation: I reviewed the patient's lab results. Labs: Laboratory Results - last 24 hr 03/11/21 03/11/21 03/11/21 18:30 18:30 18:30 WBC 6.9 RBC 5.38 Hgb 14.6 Hct 45.6 MCV 84.8 MCH 27.1 MCHC 32.0 RDW Std Deviation 49.4 H RDW Coeff of Kaycee 15.9 H Plt Count 193 MPV 10.5 Immature Gran % (Auto) 0.300 Neut % (Auto) 72.5 H Lymph % (Auto) 17.7 L Summers % (Auto) 7.2 Eos % (Auto) 1.7 Baso % (Auto) 0.6 Absolute Neuts (auto) 5.0 Absolute Lymphs (auto) 1.23 Nucleated RBC % 0 Sodium 139 Potassium 3.6 Chloride 108 H Carbon Dioxide 26.0 Anion Gap 5 BUN 15 Creatinine 1.05 H Estim Creat Clear Calc 50.08 Est GFR (MDRD) Af Amer 70 Est GFR (MDRD) Non-Af 58 L BUN/Creatinine Ratio 14.3 Glucose 118 H Calcium 9.2 Troponin I High Sens 11 B-Natriuretic Peptide 72.8 Radiography Diagnostic Testing: Clinical Impression(s) from Imaging Studies Chest X-Ray 03/11/21 19:02 IMPRESSION: There is a left pleural effusion. There is bilateral infiltrate. Electronically Signed: Guanako Gil MD at 19:20 EST , Service support , EKG Initial EKG: Attestation: I personally reviewed and interpreted this EKG as follows: Interpretation: Sinus Rhythm and No Acute Injury Pattern Comments: normal EKG Discharge Plan Triage Chief Complaint: Chest Pain ED Provider: Rodrigo Delvalle Dx/Rx/DC Orders Clinical Impression: Pneumonia, Suspected COVID-19 virus infection, Chest pain, COPD exacerbation Instructions: Coronavirus Disease 2019 (COVID-19): Caring for Yourself or Others, ED Pneumonia (Adult) Prescriptions: New prednisone 20 MG tablet 20 mg PO DAILY Qty: 6 RF: 0 doxycycline monohydrate 100 MG capsule 100 mg PO BID Qty: 20 RF: 0 No Action sucralfate 1 gram tablet 1 g PO QACHS RF: 0 atorvastatin 80 MG tablet 80 mg PO QHS RF: 0 nitroglycerin 0.4 MG tablet, sublingual 0.4 mg SL PRN PRN (Reason: Cardiac/Chest Pain) RF: 0 risperidone 4 mg tablet 4 mg PO QHS RF: 0 trazodone 100 MG tablet 200 mg PO QHS PRN (Reason: Insomnia) RF: 0 pregabalin 75 MG capsule 75 mg PO TID RF: 0 tizanidine 4 MG tablet 6 mg PO TID PRN PRN (Reason: Spasms) RF: 0 buspirone 30 mg tablet 30 mg PO BID RF: 0 furosemide 20 MG tablet 20 mg PO DAILY RF: 0 Hold Instructions: Resume on 01/22/21. mirabegron 25 MG tablet extended release 24 hr 25 mg PO DAILY RF: 0 apixaban 5 MG tablet 5 mg PO BID RF: 0 acidophilus-pectin, citrus 1 TABLET tablet 2 tab PO BID RF: 0 metoclopramide HCl 10 MG tablet 10 mg PO 4X/DAY PRN (Reason: Headache) Qty: 20 RF: 0 clopidogrel 75 mg tablet 75 mg PO DAILY RF: 0 sennosides-docusate sodium [Stool Softener-Stimulant Laxat] 8.6-50 mg Tablet 2 tab PO BID PRN PRN (Reason: Constipation) Qty: 0 RF: 0 promethazine 25 mg Tablet 25 mg PO BID PRN PRN (Reason: Nausea) RF: 0 escitalopram oxalate 20 mg Tablet 20 mg PO DAILY RF: 0 Advair HFA 230-21 mcg/actuation Hfa Aerosol Inhaler 2 puff INHALATION BID RF: 0 albuterol sulfate 1 PUFF HFA aerosol inhaler 2 puff IH Q4H PRN PRN (Reason: SOB &/or Wheezing ) RF: 0 loperamide [Imodium A-D] 2 mg Capsule 2 mg PO Q6H PRN (Reason: Diarrhea) RF: 0 fluticasone propionate 50 mcg/actuation [place],Suspension 1 spray INTRANASAL BID RF: 0 amlodipine 2.5 mg tablet 10 mg PO DAILY RF: 0 metoprolol succinate 25 mg tablet extended release 24 hr 50 mg PO DAILY RF: 0 lamotrigine 25 mg tablet 150 mg PO DAILY RF: 0 potassium chloride [K-Tab] 20 mEq tablet extended release 40 meq PO DAILY RF: 0 insulin lispro [Humalog KwikPen Insulin] 100 unit/mL insulin pen 10 unit subcut TIDAC RF: 0 pantoprazole 40 mg Tablet,Delayed Release (Dr/Ec) 40 mg PO BID RF: 0 dicyclomine 10 MG capsule 20 mg PO TIDAC RF: 0 lisinopril 20 MG tablet 10 mg PO QHS Qty: 0 RF: 0 insulin glargine 100 UNITS/ML insulin pen 25 unit SC DAILY Qty: 0 RF: 0 oxycodone 5 mg Tablet 5 mg PO Q6H PRN PRN (Reason: Pain Score 6-10) 3 Days Qty: 10 RF: 0 cephalexin 500 mg capsule 500 mg PO Q6H 10 Days Qty: 40 RF: 0 ondansetron 4 mg tablet,disintegrating 4 mg PO Q4H 3 Days Qty: 10 RF: 0 tiotropium bromide 2.5 mcg/actuation mist 2 puff INHALATION DAILY Qty: 4 RF: 3 montelukast 10 mg tablet 10 mg PO QHS Qty: 30 RF: 5 Primary Care Provider: Janel Taylor Referrals: Janel Taylor MD [Primary Care Provider] - 3-5 Days if not improving Activity Restrictions/Additional Instructions: Understand your rapid Covid test was negative but that does not rule out the possibility of Covid in context of small pneumonia bilaterally. Therefore the PCR test is sent and pending you will be notified when it comes back with regards to whether it is negative or positive. You should assume that you could have Covid and isolates unless you need to come back to the emergency department until proven otherwise. Try to get a home portable pulse oximeter and closely watch your oxygen levels periodically. If you stay below 90% for more than a minute or so, and/or you are feeling like your breathing is getting worse, return to the emergency department for further evaluation. Disposition Disposition: Home, Self Care
--- NOTE | 2021-03-11 19:02 | RAD_ITS ---
STUDY: X-RAY CHEST REASON FOR EXAM: Female, 55 years old. CHEST PAIN chest pain TECHNIQUE: XR Chest 1 View COMPARISON: 01.13.21 FINDINGS: There is a left pleural effusion. There is bilateral infiltrate. Normal size heart. Normal mediastinum and alden. Normal visualized pulmonary arteries. There is atherosclerotic calcification of the aortic arch with tortuosity. There are diffuse degenerative changes of the visualized thoracic spine. There is degenerative osteoarthritis of the bilateral shoulders. There is no demonstrated abnormality of the visualized soft tissue structures of the upper abdomen. RAD/Chest 1 View (Portable) IMPRESSION: There is a left pleural effusion. There is bilateral infiltrate. Electronically Signed: Guanako Gil MD at 19:20 EST , Service support ,
[2021-03-11 19:08] LABS: Absolute Lymphocyte Count 1.23 X10^3/uL (0.83-4.51); Basophil# 0.04 X10^3/uL; Basophil% 0.6 % (0-1); Eosinophil# 0.12 X10^3/uL; Eosinophils% 1.7 % (0-5); Hematocrit 45.6 % (37-47); Hemoglobin 14.6 g/dL (12.0-15.0); Lymphocyte # 1.23 X10^3/ul (0.83-4.51); Lymphocyte % 17.7 % (19-41); Mean Corpuscular Hgb 27.1 pg (27.0-32.0); Mean Corpuscular Volume 84.8 fL (81-99); Mean Platelet Vol. 10.5 fl (6.2-12.0); Monocyte% 7.2 % (0-10); NRBC Flagged by Analyzer 0 % (0-5); Neutrophil # 5.02 X10^3/uL (2.7-7.7); Neutrophil % 72.5 % (47-70); Platelet Count 193 K/mm3 (150-450); RBC Distribution Width CV 15.9 % (11.6-14.6); RBC Distribution Width SD 49.4 fl (35.1-43.9); Red Blood Count 5.38 M/mm3 (4.2-5.4); White Blood Count 6.9 K/mm3 (4.4-11.0)
[2021-03-11] MEDS: fentaNYL 100 MCG/2 ML Ampul 50 MCG IV (19:30)
[2021-03-11] MEDS: Ondansetron 4 MG/2 ML Vial IV (19:30)
[2021-03-11 19:32] LABS: Anion Gap 5 (5-15); BUN 15 mg/dL (7-18); BUN/Creat Ratio 14.3 RATIO (10-20); Calcium,Total 9.2 mg/dL (8.5-10.1); Chloride 108 mmol/L (98-107); Creatinine, Serum 1.05 mg/dL (0.55-1.02); EST Glomerular Filtration Rate 58 mL/min (>60); Est Glom Filt Rate - Afr Amer 70 mL/min (>60); Estimated Creatinine Clearance 50.08 ml/min; Glucose 118 mg/dL (74-106); Potassium 3.6 mmol/L (3.5-5.1); Sodium Level 139 mmol/L (136-145); Troponin-I HS 11 pg/mL (3.0-54.0)
[2021-03-11 19:48] LABS: BNP,B-Type NATRIURETIC PEPTIDE 72.8 pg/mL (0-100)
[2021-03-11] MEDS: Mag Hydrox/Al Hydrox/Simeth 30 ML UDC PO (20:16)
[2021-03-11 20:17] VITALS: BP 122/72; PULSE 82; RESP 17; O2SAT 98
[2021-03-11] MEDS: Ipratropium/Albuterol Sulfate 3 ML AMPUL.NEB INHALATION (21:28)
[2021-03-11 21:30] VITALS: PULSE 74; RESP 16
[2021-03-11 21:53] VITALS: BP 95/75; PULSE 74; RESP 16; TEMP 36.9; O2SAT 96
[2021-03-11] MEDS: Doxycycline 100 MG CAPSULE PO (21:57)
[2021-03-11] MEDS: MethylPREDNISolone 125 MG/2 ML Vial 62.5 MG IV (21:57)
--- NOTE | 2021-03-13 18:22 | EKG12_ITS ---
Test Reason : CP Blood Pressure : / mmHG Vent. Rate : 066 BPM Atrial Rate : 066 BPM P-R Int : 154 ms QRS Dur : 084 ms QT Int : 428 ms P-R-T Axes : 017 -03 002 degrees QTc Int : 448 ms Normal sinus rhythm Normal ECG Confirmed by MIGUEL TAFOYA, MOY ([id number]), material expeditor MARTHA SCOTT ([id number]) on 03/19/2021 7:54:27 AM Referred By: MARY Confirmed By:PALOMA RIVERA MD
== END 2021-03-11 22:18 | disposition home or self-care (01) ==
PROVIDERS: Emergency Provider Emergency Medicine; PCP Family Medicine; Visit Provider Emergency Medicine
DX: J44.0 Chronic obstructive pulmonary disease with (acute) lower respiratory infection (principal); F25.9 Schizoaffective disorder, unspecified; J44.1 Chronic obstructive pulmonary disease with (acute) exacerbation; I27.20 Pulmonary hypertension, unspecified; E66.01 Morbid (severe) obesity due to excess calories; E11.9 Type 2 diabetes mellitus without complications; Z79.4 Long term (current) use of insulin; J18.9 Pneumonia, unspecified organism; E78.00 Pure hypercholesterolemia, unspecified; I10 Essential (primary) hypertension; Z20.822 Contact with and (suspected) exposure to COVID-19; F17.210 Nicotine dependence, cigarettes, uncomplicated; Z79.899 Other long term (current) drug therapy; K21.9 Gastro-esophageal reflux disease without esophagitis; Z86.711 Personal history of pulmonary embolism; I25.2 Old myocardial infarction; Z87.11 Personal history of peptic ulcer disease; Z99.81 Dependence on supplemental oxygen; E55.9 Vitamin D deficiency, unspecified; M48.061 Spinal stenosis, lumbar region without neurogenic claudication; Z87.19 Personal history of other diseases of the digestive system; G47.33 Obstructive sleep apnea (adult) (pediatric); M19.90 Unspecified osteoarthritis, unspecified site; Z79.01 Long term (current) use of anticoagulants; Z98.84 Bariatric surgery status; Z95.5 Presence of coronary angioplasty implant and graft; J90 Pleural effusion, not elsewhere classified; Z91.14 Patient's other noncompliance with medication regimen; R06.00 Dyspnea, unspecified; Z68.39 Body mass index [BMI] 39.0-39.9, adult
CPT/HCPCS: 71045; 80048; 83880; 84484; 85025; 87426; 87635; 93005; 94640; 96374; 96375; 99285; A4216; J2405; U0003; U0005

== ENCOUNTER 2021-03-16 09:54 | Observation (INO) | payer MEDICARE, MEDICAID, SELFPAY ==
[2021-03-16] VITALS (14 sets, daily range): BP systolic 80–168; BP diastolic 52–91; PULSE 60–113; RESP 16–22; TEMP 36.6–36.9; O2SAT 96–100; BMI 38.0
--- NOTE | 2021-03-16 10:02 | RAD_ITS ---
STUDY: X-RAY CHEST REASON FOR EXAM: Female, 55 years old. Cough, shortness of breath TECHNIQUE: Single AP portable view of the chest. COMPARISON: Comparison is made with prior study dated 03/11/2021. FINDINGS: EKG electrodes are seen. The lungs are clear and expanded. There is no demonstrated pleural abnormality. There is mild cardiac enlargement. Normal mediastinum and alden. Normal visualized pulmonary arteries. There is atherosclerotic calcification of the aortic arch with tortuosity. There are diffuse degenerative changes of the visualized thoracic spine. Normal visualized ribs, clavicles, and shoulders. There is no demonstrated abnormality of the visualized soft tissue structures of the upper abdomen. RAD/Chest 1 View (Portable) IMPRESSION: Mild cardiomegaly. Electronically Signed: Manuelito Silva MD at 11:00 EST , Service support ,
--- NOTE | 2021-03-16 10:02 | EKG12_ITS ---
Test Reason : SOB/SYNCOPE Blood Pressure : / mmHG Vent. Rate : 067 BPM Atrial Rate : 067 BPM P-R Int : 140 ms QRS Dur : 086 ms QT Int : 432 ms P-R-T Axes : 027 024 -12 degrees QTc Int : 456 ms Normal sinus rhythm Low voltage QRS (Limb Leads) Poor R wave progression Nonspecific T wave abnormality Confirmed by LORIE TAFOYA, DESTINY ([id number]), deputy editor in chief MATRHA SCOTT ([id number]) on 03/17/2021 11:42:41 AM Referred By: AYDEN/ALESSANDRO Confirmed By:DESTINY MELO MD
[2021-03-16 10:17] LABS: Absolute Lymphocyte Count 1.94 X10^3/uL (0.83-4.51); Absolute Neutrophil Count 5.1 X10^3/uL (2.0-7.7); Basophil# 0.04 X10^3/uL; Basophil% 0.5 % (0-1); Eosinophil# 0.08 X10^3/uL; Eosinophils% 1.1 % (0-5); Hematocrit 45.2 % (37-47); Lymphocyte # 1.94 X10^3/ul (0.83-4.51); Lymphocyte % 25.5 % (19-41); Mean Corp Hgb Conc 33.2 g/dL (32-36); Mean Corpuscular Volume 81.4 fL (81-99); Mean Platelet Vol. 10.8 fl (6.2-12.0); Monocyte# 0.43 X10^3/uL; Monocyte% 5.7 % (0-10); NRBC Flagged by Analyzer 0 % (0-5); Neutrophil # 5.05 X10^3/uL (2.7-7.7); Neutrophil % 66.3 % (47-70); Platelet Count 285 K/mm3 (150-450); RBC Distribution Width CV 15.4 % (11.6-14.6); RBC Distribution Width SD 46.2 fl (35.1-43.9); Red Blood Count 5.55 M/mm3 (4.2-5.4); White Blood Count 7.6 K/mm3 (4.4-11.0)
[2021-03-16] MEDS: 0.9% Normal Saline 1,000 ML 1000 ML IV ×3 (10:24→12:44)
[2021-03-16 10:32] LABS: ALB/GLOB Ratio 0.7 RATIO (0.9-2.4); AST(SGOT) 27 U/L (15-37); Alanine Aminotransfer ALT/SGPT 31 U/L (13-56); Albumin, Serum 2.9 g/dL (3.2-5.0); Alkaline Phosphatase 212 U/L (45-117); Anion Gap 11 (5-15); BUN 15 mg/dL (7-18); BUN/Creat Ratio 12.6 RATIO (10-20); Chloride 94 mmol/L (98-107); Creatinine, Serum 1.19 mg/dL (0.55-1.02); EST Glomerular Filtration Rate 50 mL/min (>60); Est Glom Filt Rate - Afr Amer 60 mL/min (>60); Estimated Creatinine Clearance 44.19 ml/min; Globulin 4.3 g/dL (2.2-4.2); Glucose 235 mg/dL (74-106); Potassium 3.2 mmol/L (3.5-5.1); Protein, Total 7.2 g/dL (6.4-8.2); Sodium Level 134 mmol/L (136-145)
--- NOTE | 2021-03-16 10:36 | EDS_ITS ---
HPI History of Present Illness Chief Complaint: Fall Detail of Chief Complaint: Fell because of lightheadedness, patient seen recently and diagnosed with p Informant: patient Onset/Context/Timing Onset: Today Context: Sudden Onset Timing: Continuous and Waxes and wanes Quality: Increased lightheadedness with upright position Location: Home Current Severity: Mild (Patient is symptomatic since she is hypotensive.) Maximum Severity: Severe Worsened by: Upright position Relieved by: Nothing Associated Symptoms Associated Symptoms: Recent diagnosis of pneumonia, COVID test was -3 days ago Narrative Narrative: Patient is a 55-year-old woman with chief complaint of fall. She states when she stood she became lightheaded and fell. She had no loss c onscious. Denies head trauma. She denies headache. She denies double vision, blurred vision loss of vision. Denies ringing in ears decreased hearing. She does report mild congestion. She denies sore throat. She does have a cough. She does report shortness of breath. She does not recall what antibiotic she was placed on. She denies myalgias or arthralgias. She has been vaccinated. COVID test that was obtained 3 days ago was negative. Patient does have history of iron deficiency anemia. She denies black or maroon-colored stool. She does have remote history of pulmonary embolus. She also has history of diabetic neuropathy. There is no history of diabetic autonomic dysfunction. Presently states she does not feel well. Prior similar symptoms: No Recent Illness/Hospitalization: Yes [facility] Medical History Anemia Asthma Benign essential hypertension Bleeding tendency Chest pain Chronic cough Chronic narcotic use COPD (chronic obstructive pulmonary disease) Current use of insulin Delayed surgical wound healing Diabetes Emphysema of lung Gastroesophageal reflux disease High cholesterol Hip osteoarthritis History of pulmonary embolism History of stress test Hypertension Irregular heart beat Irritable bowel Morbid obesity Morbid obesity with BMI of 45.0-49.9, adult Myocardial infarct On home oxygen therapy RACHEL (obstructive sleep apnea) Pancreatitis Peptic ulcer Pulmonary hypertension Schizoaffective disorder Schizophrenia Sleep apnea Smoker Spinal stenosis of lumbar region at multiple levels Stage 2 moderate COPD by GOLD classification Thyroid nodule Tobacco abuse Ulcer Vitamin D deficiency Home Medications atorvastatin 80 mg PO QHS 08/22/15 [History Last Taken 12/17/19 22:26] nitroglycerin 0.4 mg SL PRN PRN 11/08/16 [History Last Taken 11/01/17 0.4 MG] pregabalin 75 mg PO TID 03/08/18 [History Last Taken 12/18/19 14:40] risperidone 4 mg PO QHS 03/08/18 [History Last Taken 12/17/19 22:27] tizanidine 6 mg PO TID PRN PRN 03/08/18 [History Last Taken 12/18/19 14:37] trazodone 200 mg PO QHS PRN 03/08/18 [History Last Taken 12/17/19 22:26] furosemide 20 mg PO DAILY 11/20/18 [History Last Taken 12/16/19] mirabegron 25 mg PO DAILY 11/20/18 [History Last Taken 12/18/19 08:47] apixaban 5 mg PO BID 05/02/19 [History Last Taken 12/18/19 10:22] buspirone 30 mg tablet 30 mg PO BID tab 06/27/19 [History Last Taken 12/18/19 08:46] sucralfate 1 gram tablet 1 g PO QACHS 06/27/19 [History Last Taken 12/18/19 16:13] tiotropium bromide 2.5 mcg/actuation mist for inhalation 2 puff INHALATION DAILY #4 g 09/30/19 [Rx Last Taken 12/18/19 13:02] montelukast 10 mg tablet 10 mg PO QHS #30 tab 10/30/19 [Rx Last Taken 12/17/19 22:26] acidophilus-pectin, citrus 2 tab PO BID 12/16/19 [History Last Taken 12/18/19 10:25] metoclopramide HCl 10 mg PO 4X/DAY PRN #20 tab 03/16/20 [Rx Last Taken Unknown] clopidogrel 75 mg PO DAILY 07/31/20 [History Last Taken Unknown] sennosides-docusate sodium [Stool Softener-Stimulant Laxat] 2 tab PO BID PRN PRN #0 tab 08/11/20 [Rx Last Taken Unknown] Advair HFA 2 puff INHALATION BID 11/14/20 [History Last Taken Unknown] albuterol sulfate 2 puff IH Q4H PRN PRN 11/14/20 [History Last Taken Unknown] amlodipine 10 mg PO DAILY 11/14/20 [History Last Taken Unknown] escitalopram oxalate 20 mg PO DAILY 11/14/20 [History Last Taken Unknown] fluticasone propionate 1 spray INTRANASAL BID 11/14/20 [History Last Taken Unknown] loperamide [Imodium A-D] 2 mg PO Q6H PRN 11/14/20 [History Last Taken Unknown] metoprolol succinate 50 mg PO DAILY 11/14/20 [History Last Taken Unknown] promethazine 25 mg PO BID PRN PRN 11/14/20 [History Last Taken Unknown] lamotrigine 25 mg tablet 150 mg PO DAILY 01/11/21 [History Last Taken Unknown] insulin lispro [Humalog KwikPen Insulin] 10 unit SUBCUT TIDAC 01/13/21 [History Last Taken Unknown] potassium chloride [K-Tab] 40 meq PO DAILY 01/13/21 [History Last Taken Unknown] dicyclomine 20 mg PO TIDAC 01/14/21 [History Last Taken Unknown] pantoprazole 40 mg PO BID 01/14/21 [History Last Taken Unknown] insulin glargine 25 unit SC DAILY #0 ml 01/19/21 [Rx Last Taken 12/18/19 10:25] lisinopril 10 mg PO QHS #0 tab 01/19/21 [Rx Last Taken 12/17/19 22:26] oxycodone 5 mg PO Q6H PRN PRN 3 Days #10 tab 01/19/21 [Rx Last Taken Unknown] cephalexin 500 mg PO Q6H 10 Days #40 cap 02/16/21 [Rx Last Taken Unknown] ondansetron 4 mg PO Q4H 3 Days #10 tab 02/16/21 [Rx Last Taken Unknown] doxycycline monohydrate 100 mg PO BID #20 capsule 03/11/21 [Rx Last Taken Unknown] prednisone 20 mg PO DAILY #6 tablet 03/11/21 [Rx Last Taken Unknown] Allergy/AdvReac Type Severity Reaction Status Date / Time amoxicillin Allergy Itching Verified 02/16/21 11:47 erythromycin base Allergy Unknown Verified 02/16/21 11:47 methadone Allergy Itching Verified 02/16/21 11:47 metolazone Allergy Unknown Verified 02/16/21 11:47 Penicillins Allergy Hives Verified 02/16/21 11:47 Sulfa (Sulfonamide Allergy Hives Verified 02/16/21 11:47 Antibiotics) clarithromycin [From Biaxin] AdvReac Nausea Verified 02/16/21 11:47 ibuprofen AdvReac 3 BLEEDING Verified 02/16/21 11:47 ULCERS morphine AdvReac HEADACHE Verified 02/16/21 11:47 oxycodone [From Percocet] AdvReac Itching Verified 02/16/21 11:47 Family History Mother Heart disease Cancer ovarian Father Hypertension Arthritis Hyperlipemia Grandmother Breast cancer Heart disease Grandfather Heart disease Surgical History H/O cardiac catheterization H/O heart artery stent History of appendectomy history of carpal tunnel release left wrist History of carpal tunnel surgery of left wrist History of cholecystectomy History of gastric bypass History of PTCA History of right ankle surgery history of right hip surgery History of tonsillectomy Social History household members: none Smoking Status: Current every day smoker tobacco type: cigarettes Tobacco: How many years used: 39 alcohol intake: never substance use type: does not use caffeine: No what type of physical activity do you participate in: none ROS ROS ED Constitutional Constitutional ED: Denies chills, fever(s), subjective, sweats or weight loss Eyes Eyes: Denies blurry vision, change in vision or diplopia ENT ENT ED: Reports sore throat; Denies ear pain or rhinorrhea Cardiovascular Cardiovascular: Denies chest pain, orthopnea, palpitations, paroxysmal nocturnal dyspnea or racing heartbeat Respiratory/Chest Respiratory/Chest: Reports cough, dyspnea and dyspnea on exertion; Denies orthopnea, paroxysmal nocturnal dyspnea or sputum Gastrointestinal Gastrointestinal: Reports nausea; Denies abdominal pain, diarrhea, melena or vomiting Genitourinary Genitourinary ED: Denies dysuria, hematuria or urinary frequency Musculoskeletal Musculoskeletal: Denies arthralgias, back pain, myalgias or neck pain Integumentary Denies Abrasions or rash Neurologic Neurologic: Reports weakness; Denies headache(s) or paresthesias Endocrine Endocrinology: Denies polydipsia, polyphagia or polyuria Hematologic/Lymphatic Hematologic/Lymphatic: Reports easy bleeding; Denies easy bruising or lymphadenopathy Allergic/Immunologic Allergic/Immunologic ED: Denies mouth swelling or tongue swelling EXAM Physical Exam Const Vital Signs: 03/16/21 09:55 03/16/21 10:23 03/16/21 10:38 Temperature 98.5 F Temperature Source Oral Pulse Rate 71 66 Respiratory Rate 22 H 16 Respiratory Effort Short of Breath Blood Pressure 80/64 L 85/53 L Blood Pressure Mean 69 63 Pulse Ox 96 100 Oxygen Delivery Method Room Air Nasal Cannula Oxygen Flow Rate (L/min) 2 03/16/21 11:02 03/16/21 11:40 03/16/21 12:00 Temperature 98 F 98.1 F Temperature Source Oral Oral Pulse Rate 66 66 60 Respiratory Rate 19 H 19 H 18 Respiratory Effort Blood Pressure 116/52 L 116/52 L 129/69 H Blood Pressure Mean 73 73 89 Pulse Ox 100 100 100 Oxygen Delivery Method Nasal Cannula Nasal Cannula Nasal Cannula Oxygen Flow Rate (L/min) 2 2 2 03/16/21 12:40 Temperature 98.1 F Temperature Source Oral Pulse Rate 60 Respiratory Rate 18 Respiratory Effort Blood Pressure 129/69 H Blood Pressure Mean 89 Pulse Ox 100 Oxygen Delivery Method Nasal Cannula Oxygen Flow Rate (L/min) 2 Positive well nourished, well developed and obese General Appearance ED: well developed and other Patient does not appear well. ; Negative for cyanotic, diaphoretic, NAD or pallor Nutritional Appearance: obese HEENT Reports TM's clear and dry mucous membranes; Denies moist mucous membranes Negative for trauma or tenderness Tympanic Membrane ED: Yes TM's clear Mouth ED: Yes dry mucous membranes Mouth: dry mucous membranes Eyes PERRL and EOMs intact bilaterally General Eye ED: Negative for pale conjunctiva or scleral icterus Neck no lymphadenopathy, supple and no JVD Chest Wall inspection of chest normal Resp No normal respiratory effort and No clear to auscultation bilaterally Effort and Inspection: Negative for pain with movement Auscultation: rales right and wheezes expiratory wheezes and throughout Cardio regular rate, regular rhythm, S1 normal heart sound, S2 normal heart sound and no murmurs GI normal to inspection, nondistended, normoactive bowel sounds, non-tender, non- distended and no masses; Negative for hepatosplenomegaly Auscultation: hypoactive bowel sounds Palpation: soft, tender, guarding, mass and rebound tenderness present Back/Spine no CVA tenderness Cervical Spine: Negative for cervical spine tenderness Thoracic Spine / Upper Back: Negative for thoracic spinal tenderness or paraspinal muscle tenderness Extremity normal to inspection General Extremety ED: Negative for edema or tenderness General Extremity: Negative for edema Neuro oriented x3, CN's II-XII intact bilaterally and no sensory deficits noted Sensorium / Orientation: alert Motor Exam: strength 5/5 throughout Psych mental status grossly normal Skin no rashes or lesions noted and no wounds General Skin Exam: Negative for jaundice or pallor MDM MDM MDM Narrative Medical decision making narrative: With recent diagnosis of pneumonia hypotension concern patient has septic shock. Sepsis work-up was undertaken. In light of her allergies she was treated with levofloxacin. Patient will require admission. Since she had a COVID test 3 days ago this was not repeated. Chest x-ray from the sixth was reviewed by me. I do not appreciate obvious infiltrate. It was read as bilateral lower lobe infiltrates. Patient did respond to the 30 cc/kg bolus. She is now complaining of left flank pain. Awaiting urinalysis results. She will require admission. Lab Data Attestation: I reviewed the patient's lab results. Lab results narrative: White count is normal. H&H is normal. Electrolyte panel reveals mild hyponatremia and hyper bow kalemia. CO2 and anion gap are normal. Blood sugar is elevated 235. She does have history of diabetes. Labs: Laboratory Results - last 24 hr 03/16/21 03/16/21 03/16/21 09:41 09:41 10:24 WBC 7.6 RBC 5.55 H Hgb 15.0 Hct 45.2 MCV 81.4 MCH 27.0 MCHC 33.2 RDW Std Deviation 46.2 H RDW Coeff of Kaycee 15.4 H Plt Count 285 MPV 10.8 Immature Gran % (Auto) 0.900 Neut % (Auto) 66.3 Lymph % (Auto) 25.5 Randolph % (Auto) 5.7 Eos % (Auto) 1.1 Baso % (Auto) 0.5 Absolute Neuts (auto) 5.1 Absolute Lymphs (auto) 1.94 Nucleated RBC % 0 PT 14.1 INR 1.2 APTT 26.4 Sodium 134 L Potassium 3.2 L Chloride 94 L Carbon Dioxide 29.0 Anion Gap 11 BUN 15 Creatinine 1.19 H Estim Creat Clear Calc 44.19 Est GFR (MDRD) Af Amer 60 Est GFR (MDRD) Non-Af 50 L BUN/Creatinine Ratio 12.6 Glucose 235 H Lactic Acid Calcium 10.0 Total Bilirubin 0.70 AST 27 ALT 31 Alkaline Phosphatase 212 H Total Protein 7.2 Albumin 2.9 L Globulin 4.3 H Albumin/Globulin Ratio 0.7 L Urine Color Urine Clarity Urine pH Ur Specific [place] Urine Protein Urine Glucose (UA) Urine Ketones Urine Occult Blood Urine Nitrite Urine Bilirubin Urine Urobilinogen Ur Leukocyte Esterase Urine RBC Urine WBC Ur Squamous Epith Cells Urine Bacteria Urine Mucus 03/16/21 03/16/21 10:24 11:52 WBC RBC Hgb Hct MCV MCH MCHC RDW Std Deviation RDW Coeff of Kaycee Plt Count MPV Immature Gran % (Auto) Neut % (Auto) Lymph % (Auto) [place] % (Auto) Eos % (Auto) Baso % (Auto) Absolute Neuts (auto) Absolute Lymphs (auto) Nucleated RBC % PT INR APTT Sodium Potassium Chloride Carbon Dioxide Anion Gap BUN Creatinine Estim Creat Clear Calc Est GFR (MDRD) Af Amer Est GFR (MDRD) Non-Af BUN/Creatinine Ratio Glucose Lactic Acid 3.4 H* Calcium Total Bilirubin AST ALT Alkaline Phosphatase Total Protein Albumin Globulin Albumin/Globulin Ratio Urine Color Yellow Urine Clarity Sl. Cloudy Urine pH 7.0 Ur Specific [place] 1.005 Urine Protein 30 H Urine Glucose (UA) Normal Urine Ketones Negative Urine Occult Blood 10 H Urine Nitrite Negative Urine Bilirubin Negative Urine Urobilinogen 1 H Ur Leukocyte Esterase 500 H Urine RBC 0 SEEN Urine WBC 10-25 SEEN Ur Squamous Epith Cells 0-5 SEEN Urine Bacteria RARE Urine Mucus 0 SEEN Urinalysis does reveal pyuria and rare bacteria. This may be the source of her infection. The chest x-ray reveals no obvious infiltrate at this time. Levofloxacin will treat both urologic and respiratory pathogens. Patient's blood pressure improved markedly after the 30 cc/kg bolus. ABG Data ABG results: ABG 03/16/21 10:42 Specimen Type MARILOU VBG pH 7.41 VBG pO2 26 VBG HCO3 27 H VBG Total CO2 28 VBG O2 Sat (Calc) 48 L VBG Base Excess 2 POC Mix VBG pCO2 Pt Tmp 41.7 Radiography Chest X-Ray - ED: 1 View and Read by ED Physician (Chest x-ray was interpreted by me at 1042. Cardiac silhouette size normal. Lung parenchyma is unremarkab le. May be slight atelectasis at the left base. Osseous structures are unremarkable. Perihilar regions unremarkable.) Diagnostic Testing: Clinical Impression(s) from Imaging Studies Chest X-Ray 03/16/21 10:02 IMPRESSION: Mild cardiomegaly. Electronically Signed: Manuelito Silva MD at 11:00 EST , Service support , EKG Initial EKG: Attestation: I personally reviewed and interpreted this EKG as follows: Interpretation: Sinus Rhythm (Sinus rhythm rate of 67. The EKG is normal. NM interval is 140 ms. QS duration 86 ms. QT duration 432 ms. [place] is normal. The EKG is normal) Critical Care Time Critical Care Time: Yes Critical care time (excluding procedures): 30-74 minutes (34 minutes), Including time spent: (History, physical, documentation, interpretation of laboratory results, review review of prior imaging. Initiation of therapy for sepsis with hypotension), Discussing w/Patient &/or Family/Personnel Representative, Discussing w/Consultants and Arranging Admission or Transfer Discharge Plan Dx/Rx/DC Orders Clinical Impression: Acute hypotension, Acidosis, lactic, Bacteriuria with pyuria, Acute hypokalemia, Acute hyperglycemia, Hyponatremia Disposition Disposition: [facility]
[2021-03-16 10:45] LABS: Blood Gas Specimen Type VEN; VBG BASE EXCESS 2 mmol/L (-1.0-3.5); VBG Bicarbonate 27 mmol/L (22-26); VBG PO2 26 mmHg (25-40); VBG SO2 48 % (50-70); VBG TCO2 28 mmol/L (23-33); VBG pCO2 41.7 mmHg (41-51); VBG pH 7.41 (7.32-7.42)
[2021-03-16 10:46] LABS: International Normalized Ratio 1.2; Prothrombin Time (Protime)PT. 14.1 SECONDS (11.7-14.9)
[2021-03-16 10:48] LABS: Partial Thromboplast Time 26.4 Seconds (24.1-36.2)
[2021-03-16] MEDS: levoFLOXacin IV 750 MG/150 ML BAG 100 MG IV (11:04)
[2021-03-16 11:08] LABS: Lactic Acid 3.4 mmol/L (0.4-1.9)
--- NOTE | 2021-03-16 11:10 | ED.RN ---
lactic acid 3.4. aware
[2021-03-16] MEDS: HYDROmorphone 0.5 MG/0.5 ML SYRINGE IV (11:30)
[2021-03-16 11:57] LABS: Mucous, Urine 0 SEEN /hpf (<or=2+); Red Blood Cells-Urine 0 SEEN /hpf (0-5)
[2021-03-16 12:00] LABS: Color, Urine Yellow (Yellow); Glucose, Dipstick Normal (Normal); Ketone-Dipstick Negative (Negative); Leukocyte Esterase-Dipstick 500 /ul (Negative); Nitrite-Dipstick Negative (Negative); Occult Blood-Urine 10 /ul (Negative); Protein-Dipstick 30 mg/dl (Negative); Specific Gravity, Urine 1.005 (1.002-1.030); Urine Bilirubin Dipstick Negative (Negative); Urine Clarity Sl. Cloudy (Clear); Urine Urobilinogen 1 mg/dl (Normal)
[2021-03-16 12:07] LABS: Bacteria RARE /hpf (None Seen); Squamous Epithelial Cells - UA 0-5 SEEN /hpf (5-10); White Blood Cells 10-25 SEEN /hpf (0-5)
--- NOTE | 2021-03-16 12:44 | PCM.HP.STD ---
HPI - General General Date of Admission: 03/16/21 HPI Narrative TALAT HAN, is a 55 F with an extensive PMH as outlined who presents via the ED on 03/16/2021 with a complaint of lightheadedness and dizziness. She states someone came to her door and so she went to open the door. She felt lightheaded and dizzy on standing up and subsequently passed out. She denied any blurred vision, headache, chest pain, shortness of breath, cough, nausea or vomiting or diarrhea. She admitted to not eating and drinking well of late. Review of systems otherwise negative. Patient states she has been having intermittent UTIs recently last completed treatment for UTI about a month ago. She denies any burning with urination. Vitals in the ED showed blood pressure of 168/76 with pulse rate of 75 respiratory rate 20. Temperature is 97.8 ?F and she was saturating at 100% on 3 L of oxygen which is her baseline at home. CBC showed WBC of 7.5 with hemoglobin of 15 and platelets of 285. Lactic acid was 3.4. Of note, patient was initially hypotensive when she came in with systolic blood pressure in the 70s and 80s but she responded to fluids. Chemistry was significant for lactic acid of 3.4 and sodium of 134 as well as potassium of 3.2.. Urinalysis showed 500 leukocyte esterase but negative nitrites and WBC of 10-25. Of note patient was recently seen in the ED about 5 days ago and chest x-ray done then showed a left pleural effusion and bilateral infiltrates. Chest x-ray done today showed mild cardiomegaly but no evidence of infiltrates or effusion. She was started on IV ceftriaxone in the ED and admitted to be managed for pre-syncope and hypotension likely due to dehydration as well as probable UTI. COUNT INCLUDES THE [facility] Medical History Anemia Asthma Benign essential hypertension Bleeding tendency Chest pain Chronic cough Chronic narcotic use COPD (chronic obstructive pulmonary disease) Current use of insulin Delayed surgical wound healing Diabetes Emphysema of lung Gastroesophageal reflux disease High cholesterol Hip osteoarthritis History of pulmonary embolism History of stress test Hypertension Irregular heart beat Irritable bowel Morbid obesity Morbid obesity with BMI of 45.0-49.9, adult Myocardial infarct On home oxygen therapy RACHEL (obstructive sleep apnea) Pancreatitis Peptic ulcer Pulmonary hypertension Schizoaffective disorder Schizophrenia Sleep apnea Smoker Spinal stenosis of lumbar region at multiple levels Stage 2 moderate COPD by GOLD classification Thyroid nodule Tobacco abuse Ulcer Vitamin D deficiency Home Medications atorvastatin 80 mg PO QHS 08/22/15 [History Last Taken 03/15/21] nitroglycerin 0.4 mg SL PRN PRN 11/08/16 [History Last Taken 11/01/17 0.4 MG] pregabalin 75 mg PO TID 03/08/18 [History Last Taken 03/15/21] risperidone 4 mg PO QHS 03/08/18 [History Last Taken 03/15/21] tizanidine 6 mg PO TID PRN PRN 03/08/18 [History Last Taken 12/18/19 14:37] trazodone 200 mg PO QHS PRN 03/08/18 [History Last Taken 03/15/21] furosemide 20 mg PO DAILY 11/20/18 [History Last Taken 03/15/21] mirabegron 25 mg PO DAILY 11/20/18 [History Last Taken 03/15/21] apixaban 5 mg PO BID 05/02/19 [History Last Taken 03/15/21] buspirone 30 mg tablet 30 mg PO BID tab 06/27/19 [History Last Taken 03/15/21] sucralfate 1 gram tablet 1 g PO QACHS 06/27/19 [History Last Taken 03/15/21] tiotropium bromide 2.5 mcg/actuation mist for inhalation 2 puff INHALATION DAILY #4 g 09/30/19 [Rx Last Taken 03/15/21] montelukast 10 mg tablet 10 mg PO QHS #30 tab 10/30/19 [Rx Last Taken 03/15/21] clopidogrel 75 mg PO DAILY 07/31/20 [History Last Taken 03/15/21] Advair HFA 2 puff INHALATION Q4H PRN PRN 11/14/20 [History Last Taken 03/15/21] albuterol sulfate 2 puff IH Q4H PRN PRN 11/14/20 [History Last Taken Unknown] amlodipine 10 mg PO DAILY 11/14/20 [History Last Taken 03/15/21] escitalopram oxalate 20 mg PO DAILY 11/14/20 [History Last Taken 03/15/21] fluticasone propionate 1 spray INTRANASAL BID 11/14/20 [History Last Taken 03/15/21] metoprolol succinate 50 mg PO DAILY 11/14/20 [History Last Taken 03/15/21] promethazine 25 mg PO BID PRN PRN 11/14/20 [History Last Taken Unknown] potassium chloride [K-Tab] 40 meq PO DAILY 01/13/21 [History Last Taken 03/15/21] dicyclomine 20 mg PO TIDAC 01/14/21 [History Last Taken 03/15/21] lisinopril 10 mg PO QHS #0 tab 01/19/21 [Rx Last Taken 03/15/21] doxycycline monohydrate 100 mg PO BID 03/16/21 [History Last Taken 03/15/21] hydrocodone-acetaminophen 2 tab PO Q6H PRN PRN 03/16/21 [History Last Taken Unknown] prednisone 20 mg PO DAILY 03/16/21 [History Last Taken Unknown] Allergy/AdvReac Type Severity Reaction Status Date / Time amoxicillin Allergy Itching Verified 02/16/21 11:47 erythromycin base Allergy Unknown Verified 02/16/21 11:47 methadone Allergy Itching Verified 02/16/21 11:47 metolazone Allergy Unknown Verified 02/16/21 11:47 Penicillins Allergy Hives Verified 02/16/21 11:47 Sulfa (Sulfonamide Allergy Hives Verified 02/16/21 11:47 Antibiotics) clarithromycin [From Biaxin] AdvReac Nausea Verified 02/16/21 11:47 ibuprofen AdvReac 3 BLEEDING Verified 02/16/21 11:47 ULCERS morphine AdvReac HEADACHE Verified 02/16/21 11:47 oxycodone [From Percocet] AdvReac Itching Verified 02/16/21 11:47 Family History Mother Heart disease Cancer ovarian Father Hypertension Arthritis Hyperlipemia Grandmother Breast cancer Heart disease Grandfather Heart disease Surgical History H/O cardiac catheterization H/O heart artery stent History of appendectomy history of carpal tunnel release left wrist History of carpal tunnel surgery of left wrist History of cholecystectomy History of gastric bypass History of PTCA History of right ankle surgery history of right hip surgery History of tonsillectomy Social History household members: none Smoking Status: Current every day smoker tobacco type: cigarettes Tobacco: How many years used: 39 alcohol intake: never substance use type: does not use caffeine: No what type of physical activity do you participate in: none ROS Constitutional Constitutional: Reports anorexia, fatigue, malaise and weakness; Denies change in weight, chills or fever(s) Eyes Eyes: Denies blurry vision or change in vision ENT HEENT: Denies dysphagia, headache(s), nasal congestion or nasal discharge Cardiovascular Cardiovascular: Reports lightheadedness and syncope; Denies chest pain, dyspnea on exertion, edema, orthopnea, palpitations, paroxysmal nocturnal dyspnea or rapid heart rate Respiratory/Chest Respiratory/Chest: Denies cough, dyspnea, productive cough, shortness of breath at rest or shortness of breath with exertion Gastrointestinal Gastrointestinal: Denies abdominal pain, constipation, diarrhea, hematemesis, hematochezia, melena, nausea or vomiting Genitourinary Genitourinary: Denies burning urination, dysuria or urinary frequency Musculoskeletal Musculoskeletal: Denies back pain or joint pain Neurologic Neurologic: Reports dizziness and syncope; Denies confusion, focal weakness, headache(s), seizure-like activity or seizures Psychiatric Psychiatric: Denies anxiety or depression Endocrine Endocrinology: Denies change in body appearance Hematologic/Lymphatic Hematologic/Lymphatic: Denies anemia Vital Signs Vital Signs Vital Signs: 03/16/21 09:55 03/16/21 10:23 03/16/21 10:38 Temperature 98.5 F Temperature Source Oral Pulse Rate 71 66 Respiratory Rate 22 H 16 Respiratory Effort Short of Breath Blood Pressure 80/64 L 85/53 L Blood Pressure Mean 69 63 Pulse Ox 96 100 Oxygen Delivery Method Room Air Nasal Cannula Oxygen Flow Rate (L/min) 2 03/16/21 11:02 03/16/21 11:40 03/16/21 12:00 Temperature 98 F 98.1 F Temperature Source Oral Oral Pulse Rate 66 66 60 Respiratory Rate 19 H 19 H 18 Respiratory Effort Blood Pressure 116/52 L 116/52 L 129/69 H Blood Pressure Mean 73 73 89 Pulse Ox 100 100 100 Oxygen Delivery Method Nasal Cannula Nasal Cannula Nasal Cannula Oxygen Flow Rate (L/min) 2 2 2 Weight Weight: 214 lb 15.211 oz Body Mass Index (BMI) 38.0 Physical Exam Const alert and oriented x3 Constitutional Narrative: morbid obesity General Appearance: cooperative HEENT normocephalic, head/scalp atraumatic and hearing grossly normal bilaterally HEENT Narrative: dry oral mucosal membranes Eyes PERRL, EOMs intact bilaterally and conjunctivae normal Neck no lymphadenopathy Resp normal respiratory effort, no retractions, no use of accessory muscles and clear to auscultation bilaterally Resp Narrative: on 3L of oxygen, which is her baseline Cardio regular rate, regular rhythm, S1 normal heart sound and S2 normal heart sound GI normal to inspection, nondistended, normoactive bowel sounds, soft to palpation, non-tender and non-distended Extremity normal to inspection and no clubbing, cyanosis or edema Peripheral Pulses: Yes pulses 2+ throughout Skin no rashes or lesions noted Neuro oriented x3 and CN's II-XII intact bilaterally Sensorium / Orientation: awake and alert Psych affect normal Results Lab / Micro Data Result Diagrams: 03/17/21 04:16 03/17/21 04:16 Labs: Laboratory Results - last 24 hr 03/16/21 09:41: WBC 7.6, RBC 5.55 H, Hgb 15.0, Hct 45.2, MCV 81.4, MCH 27.0, MCHC 33.2, RDW Std Deviation 46.2 H, RDW Coeff of Kaycee 15.4 H, Plt Count 285, MPV 10.8, Immature Gran % (Auto) 0.900, Neut % (Auto) 66.3, Lymph % (Auto) 25.5, [place] % (Auto) 5.7, Eos % (Auto) 1.1, Baso % (Auto) 0.5, Absolute Neuts (auto) 5.1, Absolute Lymphs (auto) 1.94, Nucleated RBC % 0 03/16/21 09:41: Sodium 134 L, Potassium 3.2 L, Chloride 94 L, Carbon Dioxide 29.0, Anion Gap 11, BUN 15, Creatinine 1.19 H, Estim Creat Clear Calc 44.19, Est GFR (MDRD) Af Amer 60, Est GFR (MDRD) Non-Af 50 L, BUN/Creatinine Ratio 12.6, Glucose 235 H, Calcium 10.0, Total Bilirubin 0.70, AST 27, ALT 31, Alkaline Phosphatase 212 H, Total Protein 7.2, Albumin 2.9 L, Globulin 4.3 H, Albumin/Globulin Ratio 0.7 L 03/16/21 10:24: PT 14.1, INR 1.2, APTT 26.4 03/16/21 10:24: Lactic Acid 3.4 H* 03/16/21 11:52: Urine Color Yellow, Urine Clarity Sl. Cloudy, Urine pH 7.0, Ur Specific Rochelle 1.005, Urine Protein 30 H, Urine Glucose (UA) Normal, Urine Ketones Negative, Urine Occult Blood 10 H, Urine Nitrite Negative, Urine Bilirubin Negative, Urine Urobilinogen 1 H, Ur Leukocyte Esterase 500 H, Urine RBC 0 SEEN, Urine WBC 10-25 SEEN, Ur Squamous Epith Cells 0-5 SEEN, Urine Bacteria RARE, Urine Mucus 0 SEEN ABG Data ABG results: ABG 03/16/21 10:42 Specimen Type MARILOU VBG pH 7.41 VBG pO2 26 VBG HCO3 27 H VBG Total CO2 28 VBG O2 Sat (Calc) 48 L VBG Base Excess 2 POC Mix VBG pCO2 Pt Tmp 41.7 Radiology Impression Chest X-Ray 03/16/21 10:02 IMPRESSION: Mild cardiomegaly. Electronically Signed: Manuelito Silva MD at 11:00 EST , Service support , Assessment & Plan Assessment/Plan (1) Acute hypotension: (2) Acidosis, lactic: (3) Syncope: PLAN: #Pre-syncope and mechanical fall I suspect that her pre-syncope as well as assisted dizziness and lightheadedness was due to orthostatic hypotension as she states has not been eating and drinking well and felt lightheaded and dizzy on standing up Hypotension responded to fluids. Hydrate with IV fluid normal saline at 125 cc/h Check orthostatics PT OT consult. Fall precautions. COVID was negative. #Asymptomatic bacteriuria Patient does have 10-25 WBCs in her urine. I am not convinced patient has a current UTI. She tells me that she has had recurrent UTIs and was recently treated for UTI about a month ago. Her urine has WBCs since October 2020, as well as leukocyte esterase.\ I will hold off on starting antibiotics as I am not convinced patient has UTI. She does not have any elevated white cell count and has no urinary symptoms and also denies any fever. Will monitor for now. #Chronic respiratory failure due to COPD: On 3 L of oxygen. #History of PE: On Eliquis #Hyperlipidemia: On atorvastatin #History of CAD: On Plavix and statin as well as metoprolol #Hypertension: On metoprolol and lisinopril as well as Lasix #Type 2 diabetes mellitus: Does not appear to be on any oral meds. Insulin sliding scale. Checks ACH S. DVT prophylaxis;not indicated as she is on eliquis Code status: DNRCCA no intubation Patient counseled about differences between full code, DNR CCA and DNR CCA. Patient elects to be DNR CCA no intubation. I counseled patient that in the unlikely event that she needed to be intubated or have CPR not gated, she could and patient still did not want to be full code. CODE STATUS DNR CCA no intubation Charges/Coding Visit Charges Inpatient E&M: 43830 Init Hosp L3 Procedures Hospitalists Procedures: 18338 Advncd Care Plan 30 Min
--- NOTE | 2021-03-16 13:09 | NURSING ---
105 KORAM HYPOTENSION, LACTIC ACIDOSIS, PYURIA WITH BACTERIA
--- NOTE | 2021-03-16 13:10 | CASEMGMT ---
PAMELA CM to room to meet with patient for initial transition planning/care coordination assessment. PAMELA ALVAREZ introduced self and role at [facility]. Patient voices understanding and consents to assessment at this time. Patient is alert and oriented and answers all questions appropriately. c/o back pain and requests something to drink. Ice water provided with approval of primary RN. Care providers, pharmacy, and demographics verified/updated at this time. PCP: Janel Taylor Specialists: Case- pulmonology, Dr. 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. HPOA is sister, Jessica Payan. LNOK: sisters Jessica Payan (HPOA) and Balbina Tejada Living Arrangements: Patient lives alone in 5th floor apartment with an elevator. Patient states she is able to sponge bathe and dress herself independently but admits that she fatigues easily due to ongoing respiratory issues. Patient's neighbor does grocery shopping and sister Jessica assists with laundry and some housekeeping. Patient uses electric wheelchair for mobility. Patient states she does not qualify for aide services through [facility] because she is too young. Patient has previously been offered CCN but did not feel that she needed them. Smoking/ETOH: Smokes 2 ppd, denies ETOH or drug use Transportation: Patient drives self and denies concerns with transportation. DME/HHC/SNF: Patient typically uses electric wheelchair for mobility. Also available in home: shower chair, raised toilet seat, grab bars, walker, cane, medical alert. Patient states she wears home oxygen at 3 LPM PRN and has concentrator as well as portable oxygen through [employer]. Patient wears BiPAP at night with 3L oxygen bled in. Patient reports previous HHC but unsure of name of company. Previous SNF stay at [facility] in August 2020. Patient has no concerns with going home at time of discharge and states would not be interested in HHC. CM to follow for any discharge planning/needs. Patient voices no concerns/needs at this time. Advised patient to ask for CM if any questions/concerns/needs arise. Voices understanding. Plan: home
--- NOTE | 2021-03-16 13:54 | CASEMGMT ---
Call placed to [facility] [place], spoke with Corrie, to confirm ordered oxygen liter flow. Per Corrie, oxygen ordered at 2 LPM with ambulation. -PAMELA Eddy
[2021-03-16 14:32] LABS: Reflex Lactate? Y
[2021-03-16] MEDS: HYDROcodone Bitartrate/Apap 5/325 Tablet PO ×2 (15:33→23:18)
[2021-03-16] MEDS: 0.9% Normal Saline 1,000 ML 125 ML IV ×2 (15:35→23:18)
[2021-03-16 16:00] LABS: Lactic Acid 3.2 mmol/L (0.4-1.9)
[2021-03-16 16:11] LABS: Hemoglobin A1c 7.8 % (3.8-5.6)
[2021-03-16 16:25] LABS: Troponin-I HS 18 pg/mL (3.0-54.0)
[2021-03-16] MEDS: Sucralfate 1 GM Tablet PO ×2 (17:01→21:23)
[2021-03-16] MEDS: Dicyclomine 10 MG Capsule 20 MG PO (17:01)
[2021-03-16] MEDS: Insulin Lispro 100 UNIT/ML INSULN.PEN SC ×2 (17:02→21:31)
[2021-03-16] MEDS: Glucerna Shake 120 ML LIQUID PO (17:02)
[2021-03-16 17:20] LABS: Bedside Glucose 237 mg/dL (70-110)
[2021-03-16] MEDS: Morphine 2 MG/ML Syringe IV (17:39)
[2021-03-16 18:35] LABS: Troponin-I HS 22 pg/mL (3.0-54.0)
[2021-03-16] MEDS: Budesonide Respules 0.5 MG/2 ML AMPUL.NEB. INHALATION (19:27)
[2021-03-16] MEDS: Ipratropium/Albuterol Sulfate 3 ML AMPUL.NEB INHALATION (19:27)
[2021-03-16] MEDS: Ondansetron 4 MG/2 ML Vial IV (20:07)
[2021-03-16] MEDS: oxyCODONE 5 MG Tablet PO (20:07)
--- NOTE | 2021-03-16 20:18 | PCS.PANDOC ---
PANDEMIC DOCUMENTATION INITIATED: Date: 10/19/2020 Time: 190
[2021-03-16] MEDS: busPIRone 15 MG TABLET 30 MG PO (21:22)
[2021-03-16] MEDS: tiZANidine HCl 2 MG Tablet 6 MG PO (21:23)
[2021-03-16] MEDS: APIXABAN 5 MG TABLET PO (21:23)
[2021-03-16] MEDS: Potassium Chloride Oral Tablet 20 MEQ 40 MEQ PO (21:23)
[2021-03-16] MEDS: Atorvastatin Calcium 80 MG Tablet PO (21:23)
[2021-03-16] MEDS: Pregabalin 75 MG Capsule PO (21:23)
[2021-03-16] MEDS: RisperiDONE 2 MG Tablet 4 MG PO (21:23)
[2021-03-16] MEDS: Montelukast 10 MG Tablet PO (21:23)
[2021-03-16] MEDS: Lisinopril 10 MG Tablet PO (21:23)
[2021-03-16] MEDS: Fluticasone 0.05% 1 SPRAY NASAL.SRY NASAL (21:24)
[2021-03-16] MEDS: traZODone 100 MG Tablet 200 MG PO (21:24)
[2021-03-16] MEDS: proMETHazine 25 MG Tablet PO (21:36)
[2021-03-16 22:25] LABS: Bedside Glucose 178 mg/dL (70-110)
[2021-03-16 22:28] LABS: Troponin-I HS 22 pg/mL (3.0-54.0)
[2021-03-17] VITALS (11 sets, daily range): BP systolic 101–169; BP diastolic 56–93; PULSE 49–99; RESP 16–18; TEMP 36.6–36.8; O2SAT 2–100
[2021-03-17] MEDS: MELATONIN 3 MG TABLET PO ×2 (01:33→21:42)
[2021-03-17] MEDS: Morphine 2 MG/ML Syringe IV (01:33)
[2021-03-17] MEDS: Mag Hydrox/Al Hydrox/Simeth 30 ML UDC PO (01:33)
[2021-03-17 04:29] LABS: Absolute Lymphocyte Count 1.64 X10^3/uL (0.83-4.51); Absolute Neutrophil Count 4.4 X10^3/uL (2.0-7.7); Basophil# 0.02 X10^3/uL; Basophil% 0.3 % (0-1); Eosinophil# 0.05 X10^3/uL; Eosinophils% 0.7 % (0-5); Hematocrit 37.4 % (37-47); Hemoglobin 12.2 g/dL (12.0-15.0); Lymphocyte # 1.64 X10^3/ul (0.83-4.51); Lymphocyte % 24.5 % (19-41); Mean Corp Hgb Conc 32.6 g/dL (32-36); Mean Corpuscular Hgb 26.6 pg (27.0-32.0); Mean Corpuscular Volume 81.7 fL (81-99); Mean Platelet Vol. 10.2 fl (6.2-12.0); Monocyte# 0.53 X10^3/uL; Monocyte% 7.9 % (0-10); NRBC Flagged by Analyzer 0 % (0-5); Neutrophil # 4.42 X10^3/uL (2.7-7.7); Neutrophil % 66.2 % (47-70); Platelet Count 200 K/mm3 (150-450); RBC Distribution Width CV 15.5 % (11.6-14.6); RBC Distribution Width SD 46.4 fl (35.1-43.9); Red Blood Count 4.58 M/mm3 (4.2-5.4); White Blood Count 6.7 K/mm3 (4.4-11.0)
[2021-03-17 05:00] LABS: Anion Gap 7 (5-15); BUN 10 mg/dL (7-18); BUN/Creat Ratio 14.6 RATIO (10-20); Calcium,Total 8.6 mg/dL (8.5-10.1); Chloride 109 mmol/L (98-107); Creatinine, Serum 0.69 mg/dL (0.55-1.02); EST Glomerular Filtration Rate 94 mL/min (>60); Est Glom Filt Rate - Afr Amer 114 mL/min (>60); Estimated Creatinine Clearance 76.21 ml/min; Glucose 163 mg/dL (74-106); Potassium 3.6 mmol/L (3.5-5.1); Sodium Level 141 mmol/L (136-145)
[2021-03-17] MEDS: Insulin Lispro 100 UNIT/ML INSULN.PEN SC ×3 (06:38→16:07)
[2021-03-17] MEDS: Sucralfate 1 GM Tablet PO ×4 (06:39→21:42)
[2021-03-17] MEDS: tiZANidine HCl 2 MG Tablet 6 MG PO ×3 (06:39→21:52)
[2021-03-17] MEDS: Pregabalin 75 MG Capsule PO ×3 (06:39→21:42)
[2021-03-17] MEDS: oxyCODONE 5 MG Tablet PO ×2 (06:39→11:52)
[2021-03-17] MEDS: Dicyclomine 10 MG Capsule 20 MG PO ×3 (06:40→16:04)
[2021-03-17 06:56] LABS: Bedside Glucose 169 mg/dL (70-110)
[2021-03-17] MEDS: Escitalopram Oxalate 20 MG Tablet PO (09:50)
[2021-03-17] MEDS: HYDROcodone Bitartrate/Apap 5/325 Tablet PO ×2 (09:50→16:04)
[2021-03-17] MEDS: Metoprolol(XL)Succ 50 MG Tablet PO (09:50)
[2021-03-17] MEDS: Fluticasone 0.05% 1 SPRAY NASAL.SRY NASAL (09:50)
[2021-03-17] MEDS: Mirabegron 25 MG TAB.ER.24H PO (09:50)
[2021-03-17] MEDS: Clopidogrel Bisulfate 75 MG Tablet PO (09:51)
[2021-03-17] MEDS: APIXABAN 5 MG TABLET PO ×2 (09:51→21:42)
[2021-03-17] MEDS: proMETHazine 25 MG Tablet PO (09:51)
[2021-03-17] MEDS: Furosemide 20 MG Tablet PO (09:51)
[2021-03-17] MEDS: Potassium Chloride Oral Tablet 20 MEQ 40 MEQ PO (09:51)
[2021-03-17] MEDS: amLODIPine 10 MG Tablet PO (09:51)
[2021-03-17] MEDS: busPIRone 15 MG TABLET 30 MG PO ×2 (09:52→21:41)
[2021-03-17] MEDS: Glucerna Shake 120 ML LIQUID PO ×3 (09:55→16:04)
--- NOTE | 2021-03-17 11:47 | NURSING ---
Refusing to have orthostatic vitals done
[2021-03-17] MEDS: Acetaminophen 325 MG Tablet 650 MG PO ×2 (11:52→20:28)
[2021-03-17 12:15] LABS: Bedside Glucose 185 mg/dL (70-110)
--- NOTE | 2021-03-17 12:25 | RAD_ITS ---
STUDY: X-RAY - THORACIC SPINE REASON FOR EXAM: Female, 55 years old. back pain TECHNIQUE: 2 view(s) of the thoracic spine were obtained. COMPARISON: None. FINDINGS: Normal kyphosis of the thoracic spine. Mild S-shaped scoliosis. No change in the mild loss of height of the T4 vertebral body consistent with a chronic compression fracture. There is multilevel disc space narrowing of the thoracic spine. The soft tissue structures are unremarkable. RAD/Thoracic Spine 3 Views IMPRESSION: No acute fracture or subluxation. Electronically Signed: Jerome El MD at 16:52 EST Tel , Service support ,
--- NOTE | 2021-03-17 12:25 | RAD_ITS ---
STUDY: X-RAY - LUMBAR SPINE REASON FOR EXAM: Female, 55 years old. back pain TECHNIQUE: 2 view(s) of the lumbar spine were obtained. COMPARISON: 10/05/2019 FINDINGS: Normal lumbar lordosis. Mild dextroscoliosis centered at L1. There is a normal alignment of the vertebrae. There is multilevel endplate spondylosis of the lumbar vertebrae. There is multi-level degenerative disc disease with multi-level disc space narrowing. Facet hypertrophy in the lower lumbar spine. No change in mild loss of height of the L1 vertebral body consistent with a mild compression fracture. The soft tissue structures are unremarkable. RAD/Lumbar Spine 2 or 3 Views IMPRESSION: 1. No change in the chronic mild wedge compression fracture of L1. 2. Mild dextro scoliosis with degenerative disc disease. Electronically Signed: Jerome El MD at 16:53 EST Tel , Service support ,
--- NOTE | 2021-03-17 14:13 | PN.HOSP_ITS ---
Subjective Subjective Patient seen and examined. She complained of severe back pain today and told me that it was acute after she had a mechanical fall. However it does appear that patient has chronic back pain. She also complained of nausea and said she was able to tolerate her breakfast. However over half of her breakfast had been eaten. Review of systems otherwise negative. Objective Data Objective Data Vital Signs: Vital Signs Temp Pulse Resp BP Pulse Ox 97.8 F 63 16 146/75 H 98 03/17/21 09:50 03/17/21 09:50 03/17/21 09:50 03/17/21 09:50 03/17/21 09:50 Oxygen Flow Rate (L/min) 2 Oxygen Delivery Method Nasal Cannula Weight: 214 lb 11.684 oz Body Mass Index (BMI) 38.0 Intake & Output: Intake and Output for Last 24 Hours 03/15/21 03/16/21 03/17/21 23:59 23:59 23:59 Intake Total 5074.58 / 5074.58 1720 / 1720 Output Total 1225 / 1225 1150 / 1150 Balance 3849.58 / 3849.58 570 / 570 Medical Nutrition Assessment Dietitian: Malnutrition Criteria Met Start: 03/16/21 16:26 Freq: Status: Active Protocol: Document 03/16/21 16:26 AG (Rec: 03/16/21 16:26 [id number]) Nutrition Malnutrition Evidence of Malnutrition Exists Yes Malnutrition (moderate): Acute Illness/Injury Evidenced By Suboptimal Energy Intake ( Moderate),Weight Loss ( Moderate) Clinical Problem Acute Disease or Injury Related Malnutrition Etiology moderate, acute malnutrition r /t inadequate energy intake d/ t nausea Signs/Symptoms as evidenced by reported PO intake meeting <75% of estimated energy needs >1 week ; unintentional wt loss of 2.3 #/1% x 1 week Status Active Problem Recommendation Dietitian Recommendations/Changes continue cardiac, 1800 calorie controlled diet as tolerated; if PO intake at meals fails, consider liberalizing diet to regular. Will add 120mL glucerna TID for additional calories/protein if consumed. Lab / Micro Data Result Diagrams: 03/17/21 04:16 03/17/21 04:16 Labs: Laboratory Results - last 24 hr 03/16/21 09:41: Hemoglobin A1c 7.8 H 03/16/21 14:55: Lactic Acid 3.2 H* 03/16/21 15:40: Troponin I High Sens 18 03/16/21 16:55: POC Glucose 237 H 03/16/21 17:58: Troponin I High Sens 22 03/16/21 21:30: POC Glucose 178 H 03/16/21 21:49: Troponin I High Sens 22 03/17/21 04:16: WBC 6.7, RBC 4.58, Hgb 12.2, Hct 37.4, MCV 81.7, MCH 26.6 L, MCHC 32.6, RDW Std Deviation 46.4 H, RDW Coeff of Kaycee 15.5 H, Plt Count 200, MPV 10.2, Immature Gran % (Auto) 0.400, Neut % (Auto) 66.2, Lymph % (Auto) 24.5, [place] % (Auto) 7.9, Eos % (Auto) 0.7, Baso % (Auto) 0.3, Absolute Neuts (auto) 4.4, Absolute Lymphs (auto) 1.64, Nucleated RBC % 0 03/17/21 04:16: Sodium 141, Potassium 3.6, Chloride 109 H, Carbon Dioxide 25.0, Anion Gap 7, BUN 10, Creatinine 0.69, Estim Creat Clear Calc 76.21, Est GFR (MDRD) Af Amer 114, Est GFR (MDRD) Non-Af 94, BUN/Creatinine Ratio 14.6, Glucose 163 H, Calcium 8.6 03/17/21 06:36: POC Glucose 169 H 03/17/21 11:48: POC Glucose 185 H Micro: Microbiology 03/16/21 11:52 Urine, Catheterized Urine Culture - Preliminary GPC Poss Enterococcus sp Physical Exam Const alert, oriented x3 and no apparent distress Constitutional Narrative: super morbid obesity General Appearance: cooperative HEENT normocephalic, head/scalp atraumatic, hearing grossly normal bilaterally and moist oral mucous membranes Head and Scalp: normocephalic Eyes PERRL, EOMs intact bilaterally and conjunctivae normal Neck no lymphadenopathy Resp normal respiratory effort, no retractions, no use of accessory muscles and clear to auscultation bilaterally Resp Narrative: on 3L of oxygen, which is her baseline Cardio regular rate, regular rhythm, S1 normal heart sound and S2 normal heart sound GI normal to inspection, nondistended, normoactive bowel sounds, soft to palpation, non-tender and non-distended Extremity normal to inspection, full ROM and no clubbing, cyanosis or edema Skin no rashes or lesions noted Neuro oriented x3 and CN's II-XII intact bilaterally Sensorium / Orientation: awake and alert Psych affect normal Assessment & Plan Assessment/Plan (1) Acute hypotension: (2) Acidosis, lactic: (3) Syncope: PLAN: #Pre syncope with mechanical fall * orthostatics were negative. * PT/.OT on board. Fall precautions * * * #Asymptomatic bacteriuria * urine culture growing GPC< likely Enterococcus, <1000 CFU/ml * hold off on antibiotics for now; await speciation #Back pain due to mechanical fall * Says she has back pain due to a mechanical fall. Thoracic and lumbar spine x- ray ordered and pending. * P.o. Tylenol as well as IV morphine and p.o. oxycodone for pain * PT OT on board. For precautions. * #Chronic respiratory failure due to COPD: On 3 L of oxygen. #History of PE: On Eliquis #Hyperlipidemia: On atorvastatin #History of CAD: On Plavix and statin as well as metoprolol #Hypertension: On metoprolol and lisinopril as well as Lasix #Type 2 diabetes mellitus: Does not appear to be on any oral meds. Insulin sliding scale. Checks ACH S. DVT prophylaxis;not indicated as she is on eliquis Code status: DNRCCA no intubation * Charges/Coding Visit Charges Inpatient E&M: 95068 Subs Hosp L2
[2021-03-17 16:16] LABS: Bedside Glucose 205 mg/dL (70-110)
[2021-03-17] MEDS: Montelukast 10 MG Tablet PO (21:42)
[2021-03-17] MEDS: RisperiDONE 2 MG Tablet 4 MG PO (21:42)
[2021-03-17] MEDS: Lisinopril 10 MG Tablet PO (21:42)
[2021-03-17] MEDS: Atorvastatin Calcium 80 MG Tablet PO (21:43)
[2021-03-17 22:25] LABS: Bedside Glucose 123 mg/dL (70-110)
[2021-03-18] VITALS (8 sets, daily range): BP systolic 125–165; BP diastolic 55–82; PULSE 51–70; RESP 16–20; TEMP 36.3–36.7; O2SAT 92–100
[2021-03-18 06:06] LABS: Absolute Lymphocyte Count 2.16 X10^3/uL (0.83-4.51); Absolute Neutrophil Count 5.5 X10^3/uL (2.0-7.7); Basophil# 0.06 X10^3/uL; Basophil% 0.7 % (0-1); Eosinophil# 0.19 X10^3/uL; Eosinophils% 2.2 % (0-5); Hematocrit 37.7 % (37-47); Hemoglobin 12.1 g/dL (12.0-15.0); Lymphocyte # 2.16 X10^3/ul (0.83-4.51); Lymphocyte % 24.8 % (19-41); Mean Corp Hgb Conc 32.1 g/dL (32-36); Mean Corpuscular Hgb 26.9 pg (27.0-32.0); Mean Corpuscular Volume 83.8 fL (81-99); Mean Platelet Vol. 10.5 fl (6.2-12.0); Monocyte# 0.72 X10^3/uL; Monocyte% 8.3 % (0-10); NRBC Flagged by Analyzer 0 % (0-5); Neutrophil # 5.54 X10^3/uL (2.7-7.7); Neutrophil % 63.5 % (47-70); Platelet Count 221 K/mm3 (150-450); RBC Distribution Width CV 15.9 % (11.6-14.6); RBC Distribution Width SD 48.2 fl (35.1-43.9); White Blood Count 8.7 K/mm3 (4.4-11.0)
--- NOTE | 2021-03-18 06:33 | NURSING ---
Pt refusing blood sugar check and AM meds this morning. Will pass to dayshicassia RN, notified MD about this.
[2021-03-18 06:45] LABS: Anion Gap 2 (5-15); BUN 9 mg/dL (7-18); BUN/Creat Ratio 13.4 RATIO (10-20); Chloride 110 mmol/L (98-107); Creatinine, Serum 0.67 mg/dL (0.55-1.02); EST Glomerular Filtration Rate 96 mL/min (>60); Est Glom Filt Rate - Afr Amer 117 mL/min (>60); Estimated Creatinine Clearance 78.48 ml/min; Glucose 142 mg/dL (74-106); Potassium 4.1 mmol/L (3.5-5.1); Sodium Level 138 mmol/L (136-145)
[2021-03-18] MEDS: Potassium Chloride Oral Tablet 20 MEQ 40 MEQ PO (09:23)
[2021-03-18] MEDS: busPIRone 15 MG TABLET 30 MG PO (09:24)
[2021-03-18] MEDS: APIXABAN 5 MG TABLET PO (09:24)
[2021-03-18] MEDS: amLODIPine 10 MG Tablet PO (09:25)
[2021-03-18] MEDS: Clopidogrel Bisulfate 75 MG Tablet PO (09:25)
[2021-03-18] MEDS: Metoprolol(XL)Succ 50 MG Tablet PO (09:25)
[2021-03-18] MEDS: Escitalopram Oxalate 20 MG Tablet PO (09:25)
[2021-03-18] MEDS: Furosemide 20 MG Tablet PO (09:26)
[2021-03-18] MEDS: Mirabegron 25 MG TAB.ER.24H PO (09:26)
[2021-03-18] MEDS: Dicyclomine 10 MG Capsule 20 MG PO (09:27)
--- NOTE | 2021-03-18 10:25 | CASEMGMT ---
PAMELA ALVAREZ NOTE: PT note from yesterday reviewed. Additional therapy recommended. Per OT note today, pt refused therapy despite encouragement. Per Dr Elliott, plan is to discharge pt home today. PAMELA ALVAREZ to room to talk w/pt. She was made aware or therapy recommendations. Pt confirms she wishes to return home and declines any HHC. She was made aware, if she decides once she returns home that she would like HHC, to contact PCP to discuss this. She voices understanding. She denies having any concerns w/going home and denies questions or needs. She is on O2 @ home @ 2 l/m w/exertion only and is aware Home ambulatory O2 testing to be completed prior to discharge to determine if she needs more O2 than that. She voices understanding. She states she is not sure who will take her home today, but states it will most likely be a friend and she states the friend can bring her portable O2 tank in for her to go home on. PAMELA Shoemaker, aware Home O2 testing to be completed prior to d/c. Nyasia BERKOWITZ RN, CM
[2021-03-18] MEDS: HYDROcodone Bitartrate/Apap 5/325 Tablet PO (11:14)
[2021-03-18] MEDS: Insulin Lispro 100 UNIT/ML INSULN.PEN SC (11:15)
[2021-03-18 11:16] LABS: Bedside Glucose 162 mg/dL (70-110)
[2021-03-18] MEDS: Sucralfate 1 GM Tablet PO (11:16)
--- NOTE | 2021-03-18 11:37 | PCM.DC.SUM ---
Providers Date of Admission: 03/16/21 Primary Care Physician: Dr. Janel Taylor MD Reason For Visit: HYPOTENSION Diagnosis Discharge Diagnosis (1) Acute hypotension: Status: Acute Code(s): I95.9 - Hypotension, unspecified (2) Acidosis, lactic: Status: Acute Code(s): E87.2 - Acidosis (3) Syncope: Status: Acute Code(s): R55 - Syncope and collapse Medications at Discharge Home Medications atorvastatin 80 mg PO QHS 08/22/15 nitroglycerin 0.4 mg SL PRN PRN 11/08/16 pregabalin 75 mg PO TID 03/08/18 risperidone 4 mg PO QHS 03/08/18 tizanidine 6 mg PO TID PRN PRN 03/08/18 trazodone 200 mg PO QHS PRN 03/08/18 furosemide 20 mg PO DAILY 11/20/18 mirabegron 25 mg PO DAILY 11/20/18 apixaban 5 mg PO BID 05/02/19 buspirone 30 mg tablet 30 mg PO BID tab 06/27/19 sucralfate 1 gram tablet 1 g PO QACHS 06/27/19 tiotropium bromide 2.5 mcg/actuation mist for inhalation 2 puff INHALATION DAILY #4 g 09/30/19 montelukast 10 mg tablet 10 mg PO QHS #30 tab 10/30/19 clopidogrel 75 mg PO DAILY 07/31/20 Advair HFA 2 puff INHALATION Q4H PRN PRN 11/14/20 albuterol sulfate 2 puff IH Q4H PRN PRN 11/14/20 amlodipine 10 mg PO DAILY 11/14/20 escitalopram oxalate 20 mg PO DAILY 11/14/20 fluticasone propionate 1 spray INTRANASAL BID 11/14/20 metoprolol succinate 50 mg PO DAILY 11/14/20 promethazine 25 mg PO BID PRN PRN 11/14/20 potassium chloride [K-Tab] 40 meq PO DAILY 01/13/21 dicyclomine 20 mg PO TIDAC 01/14/21 lisinopril 10 mg PO QHS #0 tab 01/19/21 hydrocodone-acetaminophen 2 tab PO Q6H PRN PRN 03/16/21 nitrofurantoin macrocrystal 100 mg PO Q12H #10 cap 03/18/21 Hospital Course Operations None Procedures None Summary of Care Provided Minutes Spent on Discharge: 45 Hospital Course: TALAT HAN, is a 55 F with an extensive PMH as outlined who presents via the ED on 03/16/2021 with a complaint of lightheadedness and dizziness. She states someone came to her door and so she went to open the door. She felt lightheaded and dizzy on standing up and subsequently passed out. She denied any blurred vision, headache, chest pain, shortness of breath, cough, nausea or vomiting or diarrhea. She admitted to not eating and drinking well of late. Review of systems otherwise negative. Patient states she has been having intermittent UTIs recently last completed treatment for UTI about a month ago. She denies any burning with urination. Vitals in the ED showed blood pressure of 168/76 with pulse rate of 75 respiratory rate 20. Temperature is 97.8 ?F and she was saturating at 100% on 3 L of oxygen which is her baseline at home. CBC showed WBC of 7.5 with hemoglobin of 15 and platelets of 285. Lactic acid was 3.4. Of note, patient was initially hypotensive when she came in with systolic blood pressure in the 70s and 80s but she responded to fluids. Chemistry was significant for lactic acid of 3.4 and sodium of 134 as well as potassium of 3.2.. Urinalysis showed 500 leukocyte esterase but negative nitrites and WBC of 10-25. Of note patient was recently seen in the ED about 5 days ago and chest x-ray done then showed a left pleural effusion and bilateral infiltrates. Chest x-ray done today showed mild cardiomegaly but no evidence of infiltrates or effusion. She was started on IV ceftriaxone in the ED and admitted to be managed for pre-syncope and hypotension likely due to dehydration as well as probable UTI. Orthostatics were negative. She was hydrated with IVF. PT/OT were also consulted. urine culture grew Enterococcus <1000/CFU. She had a lumbar and spinal xray due to back pain which showed no change in the chronic mild wedge compressin fracture of L1 and mild dextro scoliosis with degenerative disc disease. She remained stable and was discharged home on PO nitrofurantoin x 5 days. She is to follow up with her PCP in 1-2 weeks. Patient seen and examined. She had no active complaints. Review of systems is otherwise negative. Labs and vitals reviewe.d Home meds reviewed and reconciled. Physical Exam Const alert, oriented x3 and no apparent distress Constitutional Narrative: super morbid obesity General Appearance: cooperative HEENT normocephalic, head/scalp atraumatic, hearing grossly normal bilaterally and moist oral mucous membranes Eyes PERRL, EOMs intact bilaterally and conjunctivae normal Neck no lymphadenopathy Resp normal respiratory effort, no retractions, no use of accessory muscles and clear to auscultation bilaterally Resp Narrative: on 3L of oxygen, which is her baseline Cardio regular rate, regular rhythm, S1 normal heart sound and S2 normal heart sound GI normal to inspection, nondistended, normoactive bowel sounds, soft to palpation, non-tender and non-distended Extremity normal to inspection, full ROM and no clubbing, cyanosis or edema Skin no rashes or lesions noted Neuro oriented x3 and CN's II-XII intact bilaterally Sensorium / Orientation: awake and alert Psych affect normal Medical Records Data Medical Nutrition Assessment Dietitian: Malnutrition Criteria Met Start: 03/16/21 16:26 Freq: Status: Active Protocol: Document 03/16/21 16:26 (Rec: 03/16/21 16:26 [id number]) Nutrition Malnutrition Evidence of Malnutrition Exists Yes Malnutrition (moderate): Acute Illness/Injury Evidenced By Suboptimal Energy Intake ( Moderate),Weight Loss ( Moderate) Clinical Problem Acute Disease or Injury Related Malnutrition Etiology moderate, acute malnutrition r /t inadequate energy intake d/ t nausea Signs/Symptoms as evidenced by reported PO intake meeting <75% of estimated energy needs >1 week ; unintentional wt loss of 2.3 #/1% x 1 week Status Active Problem Recommendation Dietitian Recommendations/Changes continue cardiac, 1800 calorie controlled diet as tolerated; if PO intake at meals fails, consider liberalizing diet to regular. Will add 120mL glucerna TID for additional calories/protein if consumed. Weight / BMI Weight Weight: 214 lb 11.684 oz Body Mass Index (BMI) 38.0 ABG / Lab / Microbiology Data Result Diagrams: 03/18/21 05:05 03/18/21 05:05 Laboratory: Laboratory Results - last 24 hr 03/17/21 11:48: POC Glucose 185 H 03/17/21 16:07: POC Glucose 205 H 03/17/21 21:33: POC Glucose 123 H 03/18/21 05:05: WBC 8.7, RBC 4.50, Hgb 12.1, Hct 37.7, MCV 83.8, MCH 26.9 L, MCHC 32.1, RDW Std Deviation 48.2 H, RDW Coeff of [place]ce[place] 15.9 H, Plt Count 221, MPV 10.5, Immature Gran % (Auto) 0.500, Neut % (Auto) 63.5, Lymph % (Auto) 24.8, [place] % (Auto) 8.3, Eos % (Auto) 2.2, Baso % (Auto) 0.7, Absolute Neuts (auto) 5.5, Absolute Lymphs (auto) 2.16, Nucleated RBC % 0 03/18/21 05:05: Sodium 138, Potassium 4.1, Chloride 110 H, Carbon Dioxide 26.0, Anion Gap 2 L, BUN 9, Creatinine 0.67, Estim Creat Clear Calc 78.48, Est GFR (MDRD) Af Amer 117, Est GFR (MDRD) Non-Af 96, BUN/Creatinine Ratio 13.4, Glucose 142 H, Calcium 9.0 03/18/21 10:58: POC Glucose 162 H Microbiology: Microbiology 03/16/21 10:26 Blood Culture (Wb) - Anticubital Left Blood Culture - Preliminary No growth in 48 hours. 03/16/21 10:40 Blood Culture (Wb) - Anticubital Right Blood Culture - Preliminary No growth in 48 hours. 03/16/21 11:52 Urine, Catheterized Urine Culture - Preliminary GPC Poss Enterococcus sp Radiography Diagnostic Testing: Radiology Impression Lumbar Spine X-Ray 03/17/21 12:25 IMPRESSION: 1. No change in the chronic mild wedge compression fracture of L1. 2. Mild dextro scoliosis with degenerative disc disease. Electronically Signed: Jerome El MD at 16:53 EST Tel , Service support , Thoracic Spine X-Ray 03/17/21 12:25 IMPRESSION: No acute fracture or subluxation. Electronically Signed: Jerome El MD at 16:52 EST Tel , Service support , D/C Instructions Discharge Diet: Low fat / Low cholesterol Discharge Activity: Return to Normal Activity Call your doctor if you observe: Fever of 101 or Higher, Shortness of breath, Swelling in the ankles and Increased palpitations (irregular heartbeat) Meaningful Use Info Meaningful Use Diagnoses (Choose all that apply): None applicable Discharge Plan Admission Admit Date/Time: 03/16/21 12:47 Primary Reason for Your Visit: hypotension Attending Provider: Claudia Elliott Primary Care Provider: Janel Taylor Instructions Patient Instructions: Hypotension Dc Additional Instructions / Restrictions: counseled to keep well hydrated Discharge Orders/Prescriptions Prescriptions: New nitrofurantoin macrocrystal 100 mg capsule 100 mg PO Q12H Qty: 10 RF: 0 Continued sucralfate 1 gram tablet 1 g PO QACHS RF: 0 atorvastatin 80 MG tablet 80 mg PO QHS RF: 0 nitroglycerin 0.4 MG tablet, sublingual 0.4 mg SL PRN PRN (Reason: Cardiac/Chest Pain) RF: 0 risperidone 4 mg tablet 4 mg PO QHS RF: 0 trazodone 100 MG tablet 200 mg PO QHS PRN (Reason: Insomnia) RF: 0 pregabalin 75 MG capsule 75 mg PO TID RF: 0 tizanidine 4 MG tablet 6 mg PO TID PRN PRN (Reason: Spasms) RF: 0 buspirone 30 mg tablet 30 mg PO BID RF: 0 furosemide 20 MG tablet 20 mg PO DAILY RF: 0 Hold Instructions: Resume on 01/22/21. mirabegron 25 MG tablet extended release 24 hr 25 mg PO DAILY RF: 0 apixaban 5 MG tablet 5 mg PO BID RF: 0 clopidogrel 75 mg tablet 75 mg PO DAILY RF: 0 promethazine 25 mg Tablet 25 mg PO BID PRN PRN (Reason: Nausea) RF: 0 escitalopram oxalate 20 mg Tablet 20 mg PO DAILY RF: 0 Advair HFA 230-21 mcg/actuation Hfa Aerosol Inhaler 2 puff INHALATION Q4H PRN PRN (Reason: sob/wheezing) RF: 0 albuterol sulfate 1 PUFF HFA aerosol inhaler 2 puff IH Q4H PRN PRN (Reason: SOB &/or Wheezing ) RF: 0 fluticasone propionate 50 mcg/actuation [place],Suspension 1 spray INTRANASAL BID RF: 0 amlodipine 2.5 mg tablet 10 mg PO DAILY RF: 0 metoprolol succinate 25 mg tablet extended release 24 hr 50 mg PO DAILY RF: 0 potassium chloride [K-Tab] 20 mEq tablet extended release 40 meq PO DAILY RF: 0 dicyclomine 10 MG capsule 20 mg PO TIDAC RF: 0 lisinopril 20 MG tablet 10 mg PO QHS Qty: 0 RF: 0 hydrocodone-acetaminophen 5-325 mg tablet 2 tab PO Q6H PRN PRN (Reason: Pain) RF: 0 tiotropium bromide 2.5 mcg/actuation mist 2 puff INHALATION DAILY Qty: 4 RF: 3 montelukast 10 mg tablet 10 mg PO QHS Qty: 30 RF: 5 Discontinued prednisone 20 MG tablet 20 mg PO DAILY RF: 0 doxycycline monohydrate 100 MG capsule 100 mg PO BID RF: 0 Referrals / Follow Up: Janel Taylor MD [Primary Care Provider] - Within 2 Weeks Disposition Disposition (needs filled in before D/C Order can be placed): Home, Self Care Charges/Coding Visit Charges Inpatient E&M: 98037 Disch Hosp
== END 2021-03-18 13:34 | disposition home or self-care (01) | DRG 312 ==
LOC: ED 12:34 → PCU 03-17 09:32
PROVIDERS: Admitting Provider Student in an Organized Health Care Education/Training Program; Emergency Provider Emergency Medicine; PCP Family Medicine; Visit Provider Student in an Organized Health Care Education/Training Program
DX: I95.1 Orthostatic hypotension (principal); F25.9 Schizoaffective disorder, unspecified; M48.56XA Collapsed vertebra, not elsewhere classified, lumbar region, initial encounter for fracture; E44.0 Moderate protein-calorie malnutrition; J43.9 Emphysema, unspecified; E11.65 Type 2 diabetes mellitus with hyperglycemia; E11.40 Type 2 diabetes mellitus with diabetic neuropathy, unspecified; J96.11 Chronic respiratory failure with hypoxia; E66.01 Morbid (severe) obesity due to excess calories; Z79.4 Long term (current) use of insulin; E87.2 Acidosis; N39.0 Urinary tract infection, site not specified; B95.2 Enterococcus as the cause of diseases classified elsewhere; E87.6 Hypokalemia; I25.10 Atherosclerotic heart disease of native coronary artery without angina pectoris; F17.210 Nicotine dependence, cigarettes, uncomplicated; E78.5 Hyperlipidemia, unspecified; E86.0 Dehydration; M41.9 Scoliosis, unspecified; M51.36 Other intervertebral disc degeneration, lumbar region; I10 Essential (primary) hypertension; G47.33 Obstructive sleep apnea (adult) (pediatric); Z79.02 Long term (current) use of antithrombotics/antiplatelets; E87.1 Hypo-osmolality and hyponatremia; G89.29 Other chronic pain; Z66 Do not resuscitate; Z79.01 Long term (current) use of anticoagulants; Z86.711 Personal history of pulmonary embolism; Z87.440 Personal history of urinary (tract) infections; Z20.822 Contact with and (suspected) exposure to COVID-19; Z79.899 Other long term (current) drug therapy; Z68.38 Body mass index [BMI] 38.0-38.9, adult; K21.9 Gastro-esophageal reflux disease without esophagitis; Z98.84 Bariatric surgery status; I25.2 Old myocardial infarction
CPT/HCPCS: 36415; 51702; 71045; 72072; 72100; 80048; 80053; 81001; 82803; 82962; 83036; 83605; 84484; 85025; 85610; 85730; 87040; 87077; 87086; 87088; 87186; 93005; 94640; 96361; 96365; 96366; 96375; 96376; 97162; 97802; 99218; 99251; 99285; 99406; J7030; A4216; G0378; G0463; J2405

== ENCOUNTER 2021-03-31 16:55 | Emergency (ER) | payer MEDICARE, MEDICAID, SELFPAY ==
[2021-03-31 16:58] VITALS: BP 158/84; PULSE 79; RESP 17; TEMP 37.1; O2SAT 98; BMI 39.9
--- NOTE | 2021-03-31 17:23 | ED.VIS.GI ---
HPI HPI - GI History of Present Illness Chief Complaint: Abd Pain Informant: patient Abdominal Pain/Flank Pain Onset: Days Context: Gradual Onset Timing: Continuous Location: Epigastric, RUQ and LUQ Current Severity: Mild Maximum Severity: Moderate Worsened by: Food Relieved by: Nothing Nausea/Vomiting/Emesis GI Symptom: Positive for Nausea; Negative for Vomiting Onset: Today and Yesterday Severity: Mild Diarrhea/Melena/Hematochezia GI Symptom: Positive for Diarrhea; Negative for Melena and Hematochezia Onset: Today Stool Quality: Positive for Loose Severity: Mild Associated Symptoms Associated Symptoms: Negative for Dysuria, Frequency, Hematuria and Urgency Narrative Narrative: 35-year-old female history of depression anxiety, CAD, [place] x3, 5 stents, pancreatitis. Prior appendectomy and cholecystectomy. She is also prior gastric bypass. States the last 2 days it epigastric abdominal pain radiating around both sides and into her back. States is similar to prior pancreatitis. She denies alcohol use. Also having diarrhea and nausea no vomiting. No melena. No fever. Denies any dysuria. Prior similar symptoms: Yes Recent Illness/Hospitalization: No PFSH PFSH Medical History Anemia Asthma Benign essential hypertension Bleeding tendency Chest pain Chronic cough Chronic narcotic use COPD (chronic obstructive pulmonary disease) Current use of insulin Delayed surgical wound healing Diabetes Emphysema of lung Gastroesophageal reflux disease High cholesterol Hip osteoarthritis History of pulmonary embolism History of stress test Hypertension Irregular heart beat Irritable bowel Morbid obesity Morbid obesity with BMI of 45.0-49.9, adult Myocardial infarct On home oxygen therapy RACHEL (obstructive sleep apnea) Pancreatitis Peptic ulcer Pulmonary hypertension Schizoaffective disorder Schizophrenia Sleep apnea Smoker Spinal stenosis of lumbar region at multiple levels Stage 2 moderate COPD by GOLD classification Thyroid nodule Tobacco abuse Ulcer Vitamin D deficiency Home Medications atorvastatin 80 mg PO QHS 08/22/15 [History Last Taken 03/15/21] nitroglycerin 0.4 mg SL PRN PRN 11/08/16 [History Last Taken 11/01/17 0.4 MG] pregabalin 75 mg PO TID 03/08/18 [History Last Taken 03/15/21] risperidone 4 mg PO QHS 03/08/18 [History Last Taken 03/15/21] tizanidine 6 mg PO TID PRN PRN 03/08/18 [History Last Taken 12/18/19 14:37] trazodone 200 mg PO QHS PRN 03/08/18 [History Last Taken 03/15/21] furosemide 20 mg PO DAILY 11/20/18 [History Last Taken 03/15/21] mirabegron 25 mg PO DAILY 11/20/18 [History Last Taken 03/15/21] apixaban 5 mg PO BID 05/02/19 [History Last Taken 03/15/21] buspirone 30 mg tablet 30 mg PO BID tab 06/27/19 [History Last Taken 03/15/21] sucralfate 1 gram tablet 1 g PO QACHS 06/27/19 [History Last Taken 03/15/21] tiotropium bromide 2.5 mcg/actuation mist for inhalation 2 puff INHALATION DAILY #4 g 09/30/19 [Rx Last Taken 03/15/21] montelukast 10 mg tablet 10 mg PO QHS #30 tab 10/30/19 [Rx Last Taken 03/15/21] clopidogrel 75 mg PO DAILY 07/31/20 [History Last Taken 03/15/21] Advair HFA 2 puff INHALATION Q4H PRN PRN 11/14/20 [History Last Taken 03/15/21] albuterol sulfate 2 puff IH Q4H PRN PRN 11/14/20 [History Last Taken Unknown] amlodipine 10 mg PO DAILY 11/14/20 [History Last Taken 03/15/21] escitalopram oxalate 20 mg PO DAILY 11/14/20 [History Last Taken 03/15/21] fluticasone propionate 1 spray INTRANASAL BID 11/14/20 [History Last Taken 03/15/21] metoprolol succinate 50 mg PO DAILY 11/14/20 [History Last Taken 03/15/21] promethazine 25 mg PO BID PRN PRN 11/14/20 [History Last Taken Unknown] potassium chloride [K-Tab] 40 meq PO DAILY 01/13/21 [History Last Taken 03/15/21] dicyclomine 20 mg PO TIDAC 01/14/21 [History Last Taken 03/15/21] lisinopril 10 mg PO QHS #0 tab 01/19/21 [Rx Last Taken 03/15/21] hydrocodone-acetaminophen 2 tab PO Q6H PRN PRN 03/16/21 [History Last Taken Unknown] nitrofurantoin macrocrystal 100 mg PO Q12H #10 cap 03/18/21 [Rx Last Taken Unknown] Allergy/AdvReac Type Severity Reaction Status Date / Time amoxicillin Allergy Itching Verified 02/16/21 11:47 erythromycin base Allergy Unknown Verified 02/16/21 11:47 methadone Allergy Itching Verified 02/16/21 11:47 metolazone Allergy Unknown Verified 02/16/21 11:47 Penicillins Allergy Hives Verified 02/16/21 11:47 Sulfa (Sulfonamide Allergy Hives Verified 02/16/21 11:47 Antibiotics) clarithromycin [From Biaxin] AdvReac Nausea Verified 02/16/21 11:47 ibuprofen AdvReac 3 BLEEDING Verified 02/16/21 11:47 ULCERS morphine AdvReac HEADACHE Verified 02/16/21 11:47 oxycodone [From Percocet] AdvReac Itching Verified 02/16/21 11:47 Family History Mother Heart disease Cancer ovarian Father Hypertension Arthritis Hyperlipemia Grandmother Breast cancer Heart disease Grandfather Heart disease Surgical History H/O cardiac catheterization H/O heart artery stent History of appendectomy history of carpal tunnel release left wrist History of carpal tunnel surgery of left wrist History of cholecystectomy History of gastric bypass History of PTCA History of right ankle surgery history of right hip surgery History of tonsillectomy Social History household members: none Smoking Status: Current every day smoker tobacco type: cigarettes Tobacco: How many years used: 39 alcohol intake: never substance use type: does not use caffeine: No what type of physical activity do you participate in: none ROS ROS ED ROS Narrative Abdominal pain. Nausea. Diarrhea. Review of Systems ROS Unobtainable: Denies due to encephalopathy Constitutional Constitutional ED: Denies chills, fever(s) or subjective ENT ENT ED: Denies ear pain or rhinorrhea Cardiovascular Cardiovascular: Denies chest pain or palpitations Respiratory/Chest Respiratory/Chest: Denies cough, dyspnea or sputum Gastrointestinal Gastrointestinal: Reports abdominal pain, diarrhea and nausea; Denies constipation, melena or vomiting Genitourinary Genitourinary ED: Denies dysuria or hematuria Musculoskeletal Musculoskeletal: Denies myalgias Integumentary Denies rash Neurologic Neurologic: Denies headache(s) Psychiatric Psychiatric: Denies depression Endocrine Endocrinology: Denies polyuria Hematologic/Lymphatic Hematologic/Lymphatic: Denies easy bruising Allergic/Immunologic Allergic/Immunologic ED: Denies urticaria EXAM Physical Exam Narrative Exam Narrative: 35-year-old female vital signs stable afebrile. HEENT exam unremarkable. Neck nontender. Lungs clear heart regular rhythm rate about 80 no murmur. Abdomen diffusely tender. Nondistended. No peritoneal signs. Soft positive bowel sounds. No pulsatile mass. No hernia. No signs of obstruction. Back nontender. Moving all 4 extremities. Nontender no edema. Neurologically awake and alert. Const Vital Signs: 03/31/21 16:58 Temperature 98.8 F Temperature Source Oral Pulse Rate 79 Respiratory Rate 17 Blood Pressure 158/84 H Blood Pressure Mean 108 Pulse Ox 98 Oxygen Delivery Method Room Air Positive well nourished, well developed and obese; Negative for cachectic, contractures or unkempt General Appearance ED: well developed and NAD; Negative for unkempt, cachectic, contractures or pallor Nutritional Appearance: obese; Negative for cachectic HEENT Reports moist mucous membranes normocephalic and atraumatic; Negative for trauma or tenderness Eyes PERRL and EOMs intact bilaterally General Eye ED: Negative for pale conjunctiva or scleral icterus Neck no lymphadenopathy, supple and no JVD General: Negative for tenderness Resp normal respiratory effort and clear to auscultation bilaterally Auscultation: Negative for rales, rhonchi or wheezes Cardio regular rate, regular rhythm, S1 normal heart sound, S2 normal heart sound and no murmurs GI non-distended and no masses; Negative for non-tender Inspection: Negative for abdominal distention Auscultation: normoactive bowel sounds; Negative for hyperactive bowel sounds or hypoactive bowel sounds Palpation: soft and tender; Negative for guarding, rigid or rebound tenderness present Back/Spine no CVA tenderness General Back: Negative for CVA tenderness Cervical Spine: Negative for cervical spine tenderness Thoracic Spine / Upper Back: Negative for thoracic spinal tenderness Extremity full ROM General Extremety ED: Negative for edema or tenderness General Extremity: Negative for edema Neuro moves all extremities Sensorium / Orientation: alert, oriented to person, oriented to place and oriented to time; Negative for orientation impaired, confused, lethargic or stuporous Motor Exam: strength 5/5 throughout; Negative for general weakness Psych mental status grossly normal and thought process normal Appearance: Negative for unkempt Attitude: No agitated Mood & Affect: Negative for depressed or tearful Skin no wounds General Skin Exam: Negative for jaundice or pallor Lesions: no lesions Rashes: no rashes MDM MDM MDM Narrative Medical decision making narrative: 55-year-old female with prior history of pancreatitis complaint epigastric abdominal pain. She be treated with IV Dilaudid and Zofran. IV fluids. Screening labs are being obtained. At this time I do not think she needs any imaging. Repeat exam patient is doing well at 7:45 PM. Patient doing well. Abdomen benign. I went over all of her lab tests with her. She bases abdominal pain uncertain etiology. She'll be discharged home. Lab Data Attestation: I reviewed the patient's lab results. Lab results narrative: CBC White count 8. Hemoglobin 13. Hematocrit 41. Platelets normal. Electrolytes sodium 133 potassium of 3.1. Gap of 8. Normal BUN and creatinine. Liver enzymes unremarkable except for an alk phos of 231. Lipase normal at 58. I also reviewed the patient's prior labs and most recent CAT scan from February which was unremarkable. Labs: Laboratory Results - last 24 hr 03/31/21 03/31/21 17:30 17:30 WBC 8.1 RBC 5.02 Hgb 13.7 Hct 41.4 MCV 82.5 MCH 27.3 MCHC 33.1 RDW Std Deviation 50.5 H RDW Coeff of [place] 17.3 H Plt Count 302 MPV 9.5 Immature Gran % (Auto) 0.200 Neut % (Auto) 59.2 Lymph % (Auto) 26.9 [place] % (Auto) 9.6 Eos % (Auto) 2.9 Baso % (Auto) 1.2 H Absolute Neuts (auto) 4.8 Absolute Lymphs (auto) 2.19 Nucleated RBC % 0 Sodium 133 L Potassium 3.1 L Chloride 99 Carbon Dioxide 26.0 Anion Gap 8 BUN 10 Creatinine 0.76 Estim Creat Clear Calc 69.19 Est GFR (MDRD) Af Amer 101 Est GFR (MDRD) Non-Af 84 BUN/Creatinine Ratio 13.1 Glucose 125 H Calcium 9.2 Total Bilirubin 0.30 AST 15 ALT 17 Alkaline Phosphatase 231 H Total Protein 6.8 Albumin 3.0 L Globulin 3.8 Albumin/Globulin Ratio 0.8 L Lipase 58 L Discharge Plan Triage Chief Complaint: Abd Pain ED Provider: Hema Feng Dx/Rx/DC Orders Clinical Impression: Abdominal pain, Type 2 diabetes mellitus, Hx of acute pancreatitis Instructions: Abdominal Pain Prescriptions: No Action sucralfate 1 gram tablet 1 g PO QACHS RF: 0 atorvastatin 80 MG tablet 80 mg PO QHS RF: 0 nitroglycerin 0.4 MG tablet, sublingual 0.4 mg SL PRN PRN (Reason: Cardiac/Chest Pain) RF: 0 risperidone 4 mg tablet 4 mg PO QHS RF: 0 trazodone 100 MG tablet 200 mg PO QHS PRN (Reason: Insomnia) RF: 0 pregabalin 75 MG capsule 75 mg PO TID RF: 0 tizanidine 4 MG tablet 6 mg PO TID PRN PRN (Reason: Spasms) RF: 0 buspirone 30 mg tablet 30 mg PO BID RF: 0 furosemide 20 MG tablet 20 mg PO DAILY RF: 0 Hold Instructions: Resume on 01/22/21. mirabegron 25 MG tablet extended release 24 hr 25 mg PO DAILY RF: 0 apixaban 5 MG tablet 5 mg PO BID RF: 0 clopidogrel 75 mg tablet 75 mg PO DAILY RF: 0 promethazine 25 mg Tablet 25 mg PO BID PRN PRN (Reason: Nausea) RF: 0 escitalopram oxalate 20 mg Tablet 20 mg PO DAILY RF: 0 Advair HFA 230-21 mcg/actuation Hfa Aerosol Inhaler 2 puff INHALATION Q4H PRN PRN (Reason: sob/wheezing) RF: 0 albuterol sulfate 1 PUFF HFA aerosol inhaler 2 puff IH Q4H PRN PRN (Reason: SOB &/or Wheezing ) RF: 0 fluticasone propionate 50 mcg/actuation [place],Suspension 1 spray INTRANASAL BID RF: 0 amlodipine 2.5 mg tablet 10 mg PO DAILY RF: 0 metoprolol succinate 25 mg tablet extended release 24 hr 50 mg PO DAILY RF: 0 potassium chloride [K-Tab] 20 mEq tablet extended release 40 meq PO DAILY RF: 0 dicyclomine 10 MG capsule 20 mg PO TIDAC RF: 0 lisinopril 20 MG tablet 10 mg PO QHS Qty: 0 RF: 0 hydrocodone-acetaminophen 5-325 mg tablet 2 tab PO Q6H PRN PRN (Reason: Pain) RF: 0 nitrofurantoin macrocrystal 100 mg capsule 100 mg PO Q12H Qty: 10 RF: 0 tiotropium bromide 2.5 mcg/actuation mist 2 puff INHALATION DAILY Qty: 4 RF: 3 montelukast 10 mg tablet 10 mg PO QHS Qty: 30 RF: 5 Primary Care Provider: Janel Taylor Referrals: Janel Taylor MD [Primary Care Provider] - 3-5 Days if not improving Activity Restrictions/Additional Instructions: Your labs were unremarkable. Your lipase was normal. There is no signs of pancreatitis. Plenty of fluids and rest. Follow-up with your primary care physician. Tylenol for pain. Disposition Disposition: Home, Self Care
[2021-03-31] MEDS: 0.9% Normal Saline 1,000 ML 1000 ML IV (17:37)
[2021-03-31] MEDS: Ondansetron 4 MG/2 ML Vial IV (17:37)
[2021-03-31] MEDS: HYDROmorphone 1 MG/ML Syringe IV (17:37)
[2021-03-31 17:51] LABS: Absolute Lymphocyte Count 2.19 X10^3/uL (0.83-4.51); Absolute Neutrophil Count 4.8 X10^3/uL (2.0-7.7); Basophil% 1.2 % (0-1); Eosinophil# 0.24 X10^3/uL; Eosinophils% 2.9 % (0-5); Hematocrit 41.4 % (37-47); Hemoglobin 13.7 g/dL (12.0-15.0); Lymphocyte # 2.19 X10^3/ul (0.83-4.51); Lymphocyte % 26.9 % (19-41); Mean Corp Hgb Conc 33.1 g/dL (32-36); Mean Corpuscular Hgb 27.3 pg (27.0-32.0); Mean Corpuscular Volume 82.5 fL (81-99); Mean Platelet Vol. 9.5 fl (6.2-12.0); Monocyte# 0.78 X10^3/uL; Monocyte% 9.6 % (0-10); NRBC Flagged by Analyzer 0 % (0-5); Neutrophil # 4.81 X10^3/uL (2.7-7.7); Neutrophil % 59.2 % (47-70); Platelet Count 302 K/mm3 (150-450); RBC Distribution Width CV 17.3 % (11.6-14.6); RBC Distribution Width SD 50.5 fl (35.1-43.9); Red Blood Count 5.02 M/mm3 (4.2-5.4); White Blood Count 8.1 K/mm3 (4.4-11.0)
[2021-03-31 18:09] LABS: ALB/GLOB Ratio 0.8 RATIO (0.9-2.4); AST(SGOT) 15 U/L (15-37); Alanine Aminotransfer ALT/SGPT 17 U/L (13-56); Alkaline Phosphatase 231 U/L (45-117); Anion Gap 8 (5-15); BUN 10 mg/dL (7-18); BUN/Creat Ratio 13.1 RATIO (10-20); Calcium,Total 9.2 mg/dL (8.5-10.1); Chloride 99 mmol/L (98-107); Creatinine, Serum 0.76 mg/dL (0.55-1.02); EST Glomerular Filtration Rate 84 mL/min (>60); Est Glom Filt Rate - Afr Amer 101 mL/min (>60); Estimated Creatinine Clearance 69.19 ml/min; Globulin 3.8 g/dL (2.2-4.2); Glucose 125 mg/dL (74-106); Lipase 58 U/L (73-393); Potassium 3.1 mmol/L (3.5-5.1); Protein, Total 6.8 g/dL (6.4-8.2); Sodium Level 133 mmol/L (136-145)
[2021-03-31 19:55] VITALS: BP 137/80; PULSE 102; RESP 16; O2SAT 94
[2021-03-31 20:01] VITALS: BP 137/80; PULSE 98; RESP 20; O2SAT 97
== END 2021-03-31 20:01 | disposition home or self-care (01) ==
PROVIDERS: Emergency Provider Emergency Medicine; PCP Family Medicine; Visit Provider Emergency Medicine
DX: R10.9 Unspecified abdominal pain (principal); F25.9 Schizoaffective disorder, unspecified; J44.9 Chronic obstructive pulmonary disease, unspecified; E66.01 Morbid (severe) obesity due to excess calories; E11.9 Type 2 diabetes mellitus without complications; Z79.4 Long term (current) use of insulin; R11.2 Nausea with vomiting, unspecified; R19.7 Diarrhea, unspecified; I10 Essential (primary) hypertension; E78.00 Pure hypercholesterolemia, unspecified; I25.10 Atherosclerotic heart disease of native coronary artery without angina pectoris; F17.210 Nicotine dependence, cigarettes, uncomplicated; I25.2 Old myocardial infarction; Z95.5 Presence of coronary angioplasty implant and graft; Z87.19 Personal history of other diseases of the digestive system; F32.A Depression, unspecified; F41.9 Anxiety disorder, unspecified; Z90.49 Acquired absence of other specified parts of digestive tract; K21.9 Gastro-esophageal reflux disease without esophagitis; Z86.711 Personal history of pulmonary embolism; K58.9 Irritable bowel syndrome, unspecified; Z99.81 Dependence on supplemental oxygen; G47.33 Obstructive sleep apnea (adult) (pediatric); E55.9 Vitamin D deficiency, unspecified; M19.90 Unspecified osteoarthritis, unspecified site; Z79.899 Other long term (current) drug therapy; Z79.02 Long term (current) use of antithrombotics/antiplatelets
CPT/HCPCS: 80053; 83690; 85025; 96361; 96374; 96375; 99285; J7030; A4216; J2405

== ENCOUNTER 2021-04-03 11:41 | Emergency (ER) | payer MEDICARE, MEDICAID, SELFPAY ==
--- NOTE | 2021-04-03 13:05 | RAD_ITS ---
HISTORY: post reduction EXAMINATION/TECHNIQUE: XR Pelvis 1 or 2 Views: AP pelvis COMPARISON: Right hip series earlier same date FINDINGS: Single frontal view of the pelvis shows persistent dislocation of the right hip prosthesis. No acute fracture identified. RAD/HIP, UNI W/ Pelvis 2-3 Views IMPRESSION: Persistent dislocation of the right hip. at 1754 Reported and signed by: Maxwell Barajas MD Electronically Signed: Maxwell Barajas MD at 17:53 EST ,
--- NOTE | 2021-04-03 17:00 | RAD_ITS ---
HISTORY: pain, dislocation, previous history of dislocation. TECHNIQUE: XR Hip Unilateral with Pelvis when performed; 2-3 Views. Number of images including paperwork: 3. COMPARISON: 10/05/2019. FINDINGS: OSSEOUS STRUCTURES: Chronic fracture of the right intertrochanteric femur with heterotopic ossification. Longstem right hip arthroplasty with cerclage wires. Generalized osteopenia. JOINT SPACES: Superior dislocation of the femoral head component of the right hip arthroplasty relative to the acetabular cup. SOFT TISSUES: No radiopaque foreign body identified. RAD/Pelvis 1 or 2 Views IMPRESSION: Superior dislocation of right hip arthroplasty. at 1420 Reported and signed by: Ericka Jaquez MD Electronically Signed: Ericka Jaquez MD at 14:19 EST Reading Location ID and State: [facility] / [place] Tel , Service support ,
--- NOTE | 2021-04-03 18:09 | EDS_ITS ---
DATE OF SERVICE 04/03/21 CHIEF COMPLAINT: Right hip dislocation. HISTORY OF PRESENT ILLNESS: The patient is a 55-year-old female who states that she was sitting in a chair in bed and bent forward to pick something up and felt a pop in her right hip this morning. Last p.o. intake was sometime last evening. She does report having her right hip replaced approximately 7 years ago at the [facility]. She had one hip dislocation shortly after her surgery but none since. PHYSICAL EXAMINATION: GENERAL: The patient is lying in bed in discomfort. VITAL SIGNS: Blood pressure 135/115, temperature 98, heart rate 95, respiratory rate 18, pulse ox 100% on room air. HEENT: No external sign of trauma. LUNGS: Lung sounds are clear. HEART: Regular rate and rhythm. ABDOMEN: Soft and nontender. EXTREMITIES: Right lower extremity shows right hip to be held in mild flexion and slight internal rotation. She has palpable distal pulses and can wiggle her toes. DIAGNOSTIC DATA: Right hip and pelvis x-rays show posterior dislocation. EMERGENCY DEPARTMENT COURSE AND MEDICAL DECISION MAKING: The patient was given Dilaudid and Zofran for pain control. The patient was consented for procedural sedation. Total sedation time lasted 10 minutes and a total of 100 mg Propofol was used for sedation. Myself, as well as another ED physician made multiple attempts to reduce the hip and were unsuccessful. Repeat x-rays confirmed continued right posterior hip dislocation. IMPRESSION: Right hip dislocation. DISPOSITION/PLAN: I spoke with Dr. Swenson, conditioner tumbler for Orthopaedics. He states that the patient needs to be transferred back to [facility] where her surgery was performed. This was discussed with the patient, and she is in agreement with the plan. We currently have a call out to [facility] for acceptance and transfer.
== END 2021-04-03 20:45 | disposition short-term general hospital (02) ==
LOC: ED 04-05 14:16
PROVIDERS: Emergency Provider Emergency Medicine; PCP Family Medicine; Referring Provider Emergency Medicine; Visit Provider Emergency Medicine
DX: T84.020A Dislocation of internal right hip prosthesis, initial encounter (principal); F20.9 Schizophrenia, unspecified; J44.9 Chronic obstructive pulmonary disease, unspecified; E11.9 Type 2 diabetes mellitus without complications; I25.10 Atherosclerotic heart disease of native coronary artery without angina pectoris; Y83.1 Surgical operation with implant of artificial internal device as the cause of abnormal reaction of the patient, or of later complication, without mention of misadventure at the time of the procedure; I10 Essential (primary) hypertension; I25.2 Old myocardial infarction; K21.9 Gastro-esophageal reflux disease without esophagitis; Z79.02 Long term (current) use of antithrombotics/antiplatelets; Z79.899 Other long term (current) drug therapy; Z95.5 Presence of coronary angioplasty implant and graft; Z98.84 Bariatric surgery status
CPT/HCPCS: 36415; 72170; 73502; 96374; 96375; 96376; 99285; J2405

== ENCOUNTER 2021-04-24 19:02 | Emergency (ER) | payer MEDICARE, MEDICAID, SELFPAY ==
[2021-04-24] VITALS (9 sets, daily range): BP systolic 87–144; BP diastolic 43–108; PULSE 94–115; RESP 12–22; TEMP 36.9; O2SAT 10–98; BMI 40.6
--- NOTE | 2021-04-24 19:12 | RAD_ITS ---
STUDY: X-RAY - PELVIS AND RIGHT HIP REASON FOR EXAM: Female, 55 years old. Injury/Pain TECHNIQUE: 3 views of the pelvis and hip. COMPARISON: None. FINDINGS: There is a non-specific bowel gas pattern. There are atherosclerotic vascular calcifications of the pelvic arteries. Degenerative changes of the lumbar spine. Normal bilateral iliac wings, sacroiliac joints and visualized sacrum. Normal bilateral superior and inferior pubic rami. Normal pubic symphysis. Normal bilateral ischial tuberosities. Cephalad and posterior dislocation of the right femoral prosthesis in relation to the acetabular cup. RAD/HIP, UNI W/ Pelvis 2-3 Views IMPRESSION: Right hip prosthesis dislocation. Electronically Signed: Nitin Gimenez MD ([place]) at 20:14 EST ,
--- NOTE | 2021-04-24 19:15 | ED.RN ---
PT DOES NOT HAVE LIST OF HOME MEDICATIONS AND STATES SHE DOES NOT KNOW HER HOME MEDICATION.
--- NOTE | 2021-04-24 19:17 | ED.VIS.LOWEX ---
HPI <VIC Barahona - Last Filed: 04/24/21 20:54> History of Present Illness HPI Narrative: 55-year-old female presents with right hip pain and concern for dislocation. She had a right hip replacement 7-8 years ago at [facility]. She was seen here on 04/03 with a dislocation that was unable to be reduced with procedural sedation. She was transferred up to [facility] and she states they had to take her to the OR to reduce it. Today approximately 30 minutes ago she was leaning forward in a chair when she felt her hip come out of place. No numbness or tingling. Chief Complaint: Lower Extremity Injury [facility] <VIC Barahona - Last Filed: 04/24/21 20:54> [facility] Medical History Anemia Asthma Benign essential hypertension Bleeding tendency Chest pain Chronic cough Chronic narcotic use COPD (chronic obstructive pulmonary disease) Current use of insulin Delayed surgical wound healing Diabetes Emphysema of lung Gastroesophageal reflux disease High cholesterol Hip osteoarthritis History of pulmonary embolism History of stress test Hypertension Irregular heart beat Irritable bowel Morbid obesity Morbid obesity with BMI of 45.0-49.9, adult Myocardial infarct On home oxygen therapy RACHEL (obstructive sleep apnea) Pancreatitis Peptic ulcer Pulmonary hypertension Schizoaffective disorder Schizophrenia Sleep apnea Smoker Spinal stenosis of lumbar region at multiple levels Stage 2 moderate COPD by GOLD classification Thyroid nodule Tobacco abuse Ulcer Vitamin D deficiency Home Medications atorvastatin 80 mg PO QHS 08/22/15 [History Last Taken 03/15/21] nitroglycerin 0.4 mg SL PRN PRN 11/08/16 [History Last Taken 11/01/17 0.4 MG] pregabalin 75 mg PO TID 03/08/18 [History Last Taken 03/15/21] risperidone 4 mg PO QHS 03/08/18 [History Last Taken 03/15/21] tizanidine 6 mg PO TID PRN PRN 03/08/18 [History Last Taken 12/18/19 14:37] trazodone 200 mg PO QHS PRN 03/08/18 [History Last Taken 03/15/21] furosemide 20 mg PO DAILY 11/20/18 [History Last Taken 03/15/21] mirabegron 25 mg PO DAILY 11/20/18 [History Last Taken 03/15/21] apixaban 5 mg PO BID 05/02/19 [History Last Taken 03/15/21] buspirone 30 mg tablet 30 mg PO BID tab 06/27/19 [History Last Taken 03/15/21] sucralfate 1 gram tablet 1 g PO QACHS 06/27/19 [History Last Taken 03/15/21] tiotropium bromide 2.5 mcg/actuation mist for inhalation 2 puff INHALATION DAILY #4 g 09/30/19 [Rx Last Taken 03/15/21] montelukast 10 mg tablet 10 mg PO QHS #30 tab 10/30/19 [Rx Last Taken 03/15/21] clopidogrel 75 mg PO DAILY 07/31/20 [History Last Taken 03/15/21] Advair HFA 2 puff INHALATION Q4H PRN PRN 11/14/20 [History Last Taken 03/15/21] albuterol sulfate 2 puff IH Q4H PRN PRN 11/14/20 [History Last Taken Unknown] amlodipine 10 mg PO DAILY 11/14/20 [History Last Taken 03/15/21] escitalopram oxalate 20 mg PO DAILY 11/14/20 [History Last Taken 03/15/21] fluticasone propionate 1 spray INTRANASAL BID 11/14/20 [History Last Taken 03/15/21] metoprolol succinate 50 mg PO DAILY 11/14/20 [History Last Taken 03/15/21] promethazine 25 mg PO BID PRN PRN 11/14/20 [History Last Taken Unknown] potassium chloride [K-Tab] 40 meq PO DAILY 01/13/21 [History Last Taken 03/15/21] dicyclomine 20 mg PO TIDAC 01/14/21 [History Last Taken 03/15/21] lisinopril 10 mg PO QHS #0 tab 01/19/21 [Rx Last Taken 03/15/21] hydrocodone-acetaminophen 2 tab PO Q6H PRN PRN 03/16/21 [History Last Taken Unknown] nitrofurantoin macrocrystal 100 mg PO Q12H #10 cap 03/18/21 [Rx Last Taken Unknown] Allergy/AdvReac Type Severity Reaction Status Date / Time amoxicillin Allergy Itching Verified 04/24/21 19:08 erythromycin base Allergy Unknown Verified 04/24/21 19:08 methadone Allergy Itching Verified 04/24/21 19:08 metolazone Allergy Unknown Verified 04/24/21 19:08 Penicillins Allergy Hives Verified 04/24/21 19:08 Sulfa (Sulfonamide Allergy Hives Verified 04/24/21 19:08 Antibiotics) clarithromycin [From Biaxin] AdvReac Nausea Verified 04/24/21 19:08 ibuprofen AdvReac 3 BLEEDING Verified 04/24/21 19:08 ULCERS morphine AdvReac HEADACHE Verified 04/24/21 19:08 oxycodone [From Percocet] AdvReac Itching Verified 04/24/21 19:08 Family History Mother Heart disease Cancer ovarian Father Hypertension Arthritis Hyperlipemia Grandmother Breast cancer Heart disease Grandfather Heart disease Surgical History H/O cardiac catheterization H/O heart artery stent History of appendectomy history of carpal tunnel release left wrist History of carpal tunnel surgery of left wrist History of cholecystectomy History of gastric bypass History of PTCA History of right ankle surgery history of right hip surgery History of tonsillectomy Social History household members: none Smoking Status: Current every day smoker tobacco type: cigarettes Tobacco: How many years used: 39 alcohol intake: never substance use type: does not use caffeine: No what type of physical activity do you participate in: none ROS <VIC Barahona - Last Filed: 04/24/21 20:54> ROS ED ROS Narrative Constitutional: Negative for fever, chills, malaise. Eyes: Negative for visual change. ENT: Negative for sore throat, ear pain, rhinorrhea. CVS: Negative for palpitations, chest pain, syncope. Respiratory: Negative for shortness of breath, cough, orthopnea. GI: Negative for abdominal pain, nausea, vomiting. : Negative for dysuria, hematuria or frequency. Neuro: Negative for motor/sensory dysfunction. Skin: Negative for rash, abscess, or wound. Musc: Positive for right hip pain. No swelling, trauma. Heme: Negative for easy bruising, bleeding, lymphadenopathy. EXAM <VIC Barahona - Last Filed: 04/24/21 20:54> Physical Exam Narrative Exam Narrative: CONST: Patient sitting in no acute distress. EYES: Normal inspection. NECK: Normal inspection. RESP: No respiratory distress, CTAB. CVS: Regular rate and rhythm, no murmur, no gallop. SKIN: Color normal, no rash, warm, dry, intact. EXTREMITIES: Tender to palpation over right hip and palpable deformity, pain with any range of motion of the hip, otherwise extremities nontender. 2+ DP pulses. Sensation intact to light touch. NEURO: Oriented x4. PSYCH: Normal affect. Const Vital Signs: 04/24/21 19:03 04/24/21 19:15 04/24/21 20:22 Temperature 98.4 F Temperature Source Oral Pulse Rate 97 Pulse Rate [1 (Initial Baseline)] 94 Pulse Rate [2] 94 Pulse Rate [3] 98 Pulse Rate [4] 110 H Pulse Rate [5] 115 H Pulse Rate [6] 113 H Pulse Rate [7] 109 H Pulse Rate [8] 107 H Respiratory Rate 18 Respiratory Rate [1 (Initial Baseline)] 12 Respiratory Rate [2] 14 Respiratory Rate [3] 18 Respiratory Rate [4] 16 Respiratory Rate [5] 18 Respiratory Rate [6] 22 H Respiratory Rate [7] 17 Respiratory Rate [8] 16 Blood Pressure 140/48 H Blood Pressure [1 (Initial Baseline)] 144/76 H Blood Pressure [2] 134/68 H Blood Pressure [3] 120/108 H Blood Pressure [4] 108/76 Blood Pressure [5] 87/66 L Blood Pressure [6] 109/57 L Blood Pressure [7] 116/79 Blood Pressure [8] 100/76 Blood Pressure Mean 78 Pulse Ox 87 97 Oxygen Delivery Method Room Air Nasal Cannula Nasal Cannula Oxygen Delivery Method [1 (Initial Baseline)] Nasal Cannula Oxygen Delivery Method [2] Nasal Cannula Oxygen Delivery Method [3] Nasal Cannula Oxygen Delivery Method [4] Nasal Cannula Oxygen Delivery Method [5] Non-Rebreather Oxygen Delivery Method [6] Ambu-Bag Oxygen Delivery Method [7] Non-Rebreather Oxygen Delivery Method [8] Non-Rebreather Oxygen Flow Rate (L/min) 2 Oxygen Flow Rate (L/min) [1 (Initial Baseline)] 6 Oxygen Flow Rate (L/min) [2] 10 Oxygen Flow Rate (L/min) [3] 10 Oxygen Flow Rate (L/min) [4] 10 Oxygen Flow Rate (L/min) [5] 15 Oxygen Flow Rate (L/min) [6] 15 Oxygen Flow Rate (L/min) [7] 15 Oxygen Flow Rate (L/min) [8] 10 04/24/21 20:35 04/24/21 20:40 04/24/21 20:45 Temperature Temperature Source Pulse Rate 109 H 107 H 101 H Pulse Rate [1 (Initial Baseline)] Pulse Rate [2] Pulse Rate [3] Pulse Rate [4] Pulse Rate [5] Pulse Rate [6] Pulse Rate [7] Pulse Rate [8] Respiratory Rate 17 20 H 19 H Respiratory Rate [1 (Initial Baseline)] Respiratory Rate [2] Respiratory Rate [3] Respiratory Rate [4] Respiratory Rate [5] Respiratory Rate [6] Respiratory Rate [7] Respiratory Rate [8] Blood Pressure 116/79 100/76 111/88 H Blood Pressure [1 (Initial Baseline)] Blood Pressure [2] Blood Pressure [3] Blood Pressure [4] Blood Pressure [5] Blood Pressure [6] Blood Pressure [7] Blood Pressure [8] Blood Pressure Mean Pulse Ox 10 96 95 Oxygen Delivery Method Non-Rebreather Nasal Cannula Nasal Cannula Oxygen Delivery Method [1 (Initial Baseline)] Oxygen Delivery Method [2] Oxygen Delivery Method [3] Oxygen Delivery Method [4] Oxygen Delivery Method [5] Oxygen Delivery Method [6] Oxygen Delivery Method [7] Oxygen Delivery Method [8] Oxygen Flow Rate (L/min) 10 6 Oxygen Flow Rate (L/min) [1 (Initial Baseline)] Oxygen Flow Rate (L/min) [2] Oxygen Flow Rate (L/min) [3] Oxygen Flow Rate (L/min) [4] Oxygen Flow Rate (L/min) [5] Oxygen Flow Rate (L/min) [6] Oxygen Flow Rate (L/min) [7] Oxygen Flow Rate (L/min) [8] 04/24/21 20:56 04/24/21 22:05 Temperature Temperature Source Pulse Rate 102 H 94 Pulse Rate [1 (Initial Baseline)] Pulse Rate [2] Pulse Rate [3] Pulse Rate [4] Pulse Rate [5] Pulse Rate [6] Pulse Rate [7] Pulse Rate [8] Respiratory Rate 18 20 H Respiratory Rate [1 (Initial Baseline)] Respiratory Rate [2] Respiratory Rate [3] Respiratory Rate [4] Respiratory Rate [5] Respiratory Rate [6] Respiratory Rate [7] Respiratory Rate [8] Blood Pressure 123/84 H 97/43 L Blood Pressure [1 (Initial Baseline)] Blood Pressure [2] Blood Pressure [3] Blood Pressure [4] Blood Pressure [5] Blood Pressure [6] Blood Pressure [7] Blood Pressure [8] Blood Pressure Mean Pulse Ox 96 98 Oxygen Delivery Method Nasal Cannula Oxygen Delivery Method [1 (Initial Baseline)] Oxygen Delivery Method [2] Oxygen Delivery Method [3] Oxygen Delivery Method [4] Oxygen Delivery Method [5] Oxygen Delivery Method [6] Oxygen Delivery Method [7] Oxygen Delivery Method [8] Oxygen Flow Rate (L/min) 4 Oxygen Flow Rate (L/min) [1 (Initial Baseline)] Oxygen Flow Rate (L/min) [2] Oxygen Flow Rate (L/min) [3] Oxygen Flow Rate (L/min) [4] Oxygen Flow Rate (L/min) [5] Oxygen Flow Rate (L/min) [6] Oxygen Flow Rate (L/min) [7] Oxygen Flow Rate (L/min) [8] <Dr. Jese Maddox, DO - Last Filed: 04/24/21 22:31> Physical Exam Const Vital Signs: 04/24/21 19:03 04/24/21 19:15 04/24/21 20:22 Temperature 98.4 F Temperature Source Oral Pulse Rate 97 Pulse Rate [1 (Initial Baseline)] 94 Pulse Rate [2] 94 Pulse Rate [3] 98 Pulse Rate [4] 110 H Pulse Rate [5] 115 H Pulse Rate [6] 113 H Pulse Rate [7] 109 H Pulse Rate [8] 107 H Respiratory Rate 18 Respiratory Rate [1 (Initial Baseline)] 12 Respiratory Rate [2] 14 Respiratory Rate [3] 18 Respiratory Rate [4] 16 Respiratory Rate [5] 18 Respiratory Rate [6] 22 H Respiratory Rate [7] 17 Respiratory Rate [8] 16 Blood Pressure 140/48 H Blood Pressure [1 (Initial Baseline)] 144/76 H Blood Pressure [2] 134/68 H Blood Pressure [3] 120/108 H Blood Pressure [4] 108/76 Blood Pressure [5] 87/66 L Blood Pressure [6] 109/57 L Blood Pressure [7] 116/79 Blood Pressure [8] 100/76 Blood Pressure Mean 78 Pulse Ox 87 97 Oxygen Delivery Method Room Air Nasal Cannula Nasal Cannula Oxygen Delivery Method [1 (Initial Baseline)] Nasal Cannula Oxygen Delivery Method [2] Nasal Cannula Oxygen Delivery Method [3] Nasal Cannula Oxygen Delivery Method [4] Nasal Cannula Oxygen Delivery Method [5] Non-Rebreather Oxygen Delivery Method [6] Ambu-Bag Oxygen Delivery Method [7] Non-Rebreather Oxygen Delivery Method [8] Non-Rebreather Oxygen Flow Rate (L/min) 2 Oxygen Flow Rate (L/min) [1 (Initial Baseline)] 6 Oxygen Flow Rate (L/min) [2] 10 Oxygen Flow Rate (L/min) [3] 10 Oxygen Flow Rate (L/min) [4] 10 Oxygen Flow Rate (L/min) [5] 15 Oxygen Flow Rate (L/min) [6] 15 Oxygen Flow Rate (L/min) [7] 15 Oxygen Flow Rate (L/min) [8] 10 04/24/21 20:35 04/24/21 20:40 04/24/21 20:45 Temperature Temperature Source Pulse Rate 109 H 107 H 101 H Pulse Rate [1 (Initial Baseline)] Pulse Rate [2] Pulse Rate [3] Pulse Rate [4] Pulse Rate [5] Pulse Rate [6] Pulse Rate [7] Pulse Rate [8] Respiratory Rate 17 20 H 19 H Respiratory Rate [1 (Initial Baseline)] Respiratory Rate [2] Respiratory Rate [3] Respiratory Rate [4] Respiratory Rate [5] Respiratory Rate [6] Respiratory Rate [7] Respiratory Rate [8] Blood Pressure 116/79 100/76 111/88 H Blood Pressure [1 (Initial Baseline)] Blood Pressure [2] Blood Pressure [3] Blood Pressure [4] Blood Pressure [5] Blood Pressure [6] Blood Pressure [7] Blood Pressure [8] Blood Pressure Mean Pulse Ox 10 96 95 Oxygen Delivery Method Non-Rebreather Nasal Cannula Nasal Cannula Oxygen Delivery Method [1 (Initial Baseline)] Oxygen Delivery Method [2] Oxygen Delivery Method [3] Oxygen Delivery Method [4] Oxygen Delivery Method [5] Oxygen Delivery Method [6] Oxygen Delivery Method [7] Oxygen Delivery Method [8] Oxygen Flow Rate (L/min) 10 6 Oxygen Flow Rate (L/min) [1 (Initial Baseline)] Oxygen Flow Rate (L/min) [2] Oxygen Flow Rate (L/min) [3] Oxygen Flow Rate (L/min) [4] Oxygen Flow Rate (L/min) [5] Oxygen Flow Rate (L/min) [6] Oxygen Flow Rate (L/min) [7] Oxygen Flow Rate (L/min) [8] 04/24/21 20:56 04/24/21 22:05 Temperature Temperature Source Pulse Rate 102 H 94 Pulse Rate [1 (Initial Baseline)] Pulse Rate [2] Pulse Rate [3] Pulse Rate [4] Pulse Rate [5] Pulse Rate [6] Pulse Rate [7] Pulse Rate [8] Respiratory Rate 18 20 H Respiratory Rate [1 (Initial Baseline)] Respiratory Rate [2] Respiratory Rate [3] Respiratory Rate [4] Respiratory Rate [5] Respiratory Rate [6] Respiratory Rate [7] Respiratory Rate [8] Blood Pressure 123/84 H 97/43 L Blood Pressure [1 (Initial Baseline)] Blood Pressure [2] Blood Pressure [3] Blood Pressure [4] Blood Pressure [5] Blood Pressure [6] Blood Pressure [7] Blood Pressure [8] Blood Pressure Mean Pulse Ox 96 98 Oxygen Delivery Method Nasal Cannula Oxygen Delivery Method [1 (Initial Baseline)] Oxygen Delivery Method [2] Oxygen Delivery Method [3] Oxygen Delivery Method [4] Oxygen Delivery Method [5] Oxygen Delivery Method [6] Oxygen Delivery Method [7] Oxygen Delivery Method [8] Oxygen Flow Rate (L/min) 4 Oxygen Flow Rate (L/min) [1 (Initial Baseline)] Oxygen Flow Rate (L/min) [2] Oxygen Flow Rate (L/min) [3] Oxygen Flow Rate (L/min) [4] Oxygen Flow Rate (L/min) [5] Oxygen Flow Rate (L/min) [6] Oxygen Flow Rate (L/min) [7] Oxygen Flow Rate (L/min) [8] [facility] <VIC Barahona - Last Filed: 04/24/21 20:54> [facility] Narrative Medical decision making narrative: Patient has a prosthetic right hip and presents with pain and a sensation of dislocation from bending over in her chair. She appears well and nontoxic. Vital signs are within normal limits. She does have shortening of the right lower extremity and pain and a palpable deformity over the right hip. Distal pulses 2+ and symmetric. Sensation intact. X-ray shows posterior hip dislocation. She was treated with Dilaudid and Zofran for pain control. The attending consented her for procedural sedation and she was given propofol and had successful manual reduction. She did become hypoxic and briefly required [id number] but then had improvement in her O2 sats to the high 90s and was more awake and alert and responding appropriately. Repeat x-ray confirms appropriate prosthetic hip alignment without fracture. With her recurrent dislocations in a month I recommended she follow-up with her orthopedic surgeon and gave her hip dislocation precautions. She was discharged in stable condition Diagnosis 1. Prosthetic right hip dislocation?reduced Radiography Diagnostic Testing: Clinical Impression(s) from Imaging Studies Hip/Pelvis X-Ray 04/24/21 19:12 IMPRESSION: Right hip prosthesis dislocation. Electronically Signed: Nitin Gimenez MD (Brooks) at 20:14 EST , Hip/Pelvis X-Ray 04/24/21 20:32 IMPRESSION: Normal alignment of right hip prosthesis. Electronically Signed: Nitin Gimenez MD (Brooks) at 21:17 EST , <Dr. Jese Maddox, DO - Last Filed: 04/24/21 22:31> [facility] Narrative Medical decision making narrative: Patient was seen with me. I agree with the history and physical examination. I was present during procedures. Patient is a 55-year-old female who presents with right hip pain. Patient states his pain began tonight when she bent over. Patient states she has dislocated this hip in the past. Patient states it feels like it is dislocated again. Patient denies any radiation of the pain. Patient denies any paresthesias or weakness. Patient denies any other trauma or injury. Vital signs are stable. Patient is afebrile. Patient is in no acute distress. The right lower extremity was shortened and internally rotated. Range of motion of the right hip was limited in all motion secondary to pain. Pedal pulses are equal bilateral. Sensation was intact to light touch bilaterally in the lower extremities. Strength is 5/5 bilaterally in the lower extremities. X-rays of the right hip were obtained. There are 3 views. On my interpretation, there is a superior and posterior dislocation of the prosthesis of the right hip. There is no acute fracture. Radiologist also interpreted the x-rays and agrees. Patient was advised of the need for procedural sedation for reduction of the hip. Patient agrees to have this performed. Patient was sedated with propofol. The hip was reduced by myself. Please see procedure note. Repeat x-rays were obtained. There are 2 views. On my interpretation, there is good reduction of the hip prosthesis. There is no acute fracture. Radiologist also interpreted the x-rays and agrees. Patient was instructed to maintain the knee immobilizer until she follows up with her orthopedic surgeon. Patient was instructed to avoid bending at the hip. Patient was instructed to follow-up in 5 to 7 days. Patient understood and was agreeable with the plan. All questions were answered. Radiography X-Ray: Right Hip, Read by ED Physician, Read by Radiologist and - (Dislocation of the prosthesis of the right hip. There is no fracture.) Diagnostic Testing: Clinical Impression(s) from Imaging Studies Hip/Pelvis X-Ray 04/24/21 19:12 IMPRESSION: Right hip prosthesis dislocation. Electronically Signed: Nitin Gimenez MD (Brooks) at 20:14 EST , Hip/Pelvis X-Ray 04/24/21 20:32 IMPRESSION: Normal alignment of right hip prosthesis. Electronically Signed: Nitin Gimenez MD (Brooks) at 21:17 EST , <Dr. Jese Maddox, DO - Last Filed: 04/24/21 22:31> Other Procedures Procedure(s): Patient was advised of the need for conscious sedation for reduction of her hip dislocation. Patient had this done recently. Patient understands the risks and benefits of the procedure. Patient was given the opportunity to ask any further questions. She had none. Patient was placed on continuous cardiac and pulse oximeter monitors. Patient was placed on oxygen. Timeout was performed. Patient was given a total of 80 mg of propofol. Patient was completely sedated. The right hip was flexed, internally rotated, and adducted. Traction was applied. The hip was reduced. Patient tolerated the procedure well. Patient did have some hypoxia after the procedure. Patient was placed on nonrebreather mask. Patient was also ventilated with an Ambu bag and [id number]. Patient's oxygen improved to normal. Patient became more awake and alert. Patient did not require any further oxygen. A knee immobilizer was applied to the right knee. X-rays of the right hip were repeated. There is good reduction of the hip dislocation. There is no acute fracture. Patient was instructed to maintain the knee immobilizer until she follows up with her orthopedic surgeon. Patient understood and was agreeable with the plan. All questions were answered. Total time of sedation was 15 minutes. Discharge Plan Triage Chief Complaint: Lower Extremity Injury ED Provider: Christina Banks Dx/Rx/DC Orders Clinical Impression: Dislocated hip Instructions: ED Hip Replace Dislocation Reduc Prescriptions: No Action sucralfate 1 gram tablet 1 g PO QACHS RF: 0 atorvastatin 80 MG tablet 80 mg PO QHS RF: 0 nitroglycerin 0.4 MG tablet, sublingual 0.4 mg SL PRN PRN (Reason: Cardiac/Chest Pain) RF: 0 risperidone 4 mg tablet 4 mg PO QHS RF: 0 trazodone 100 MG tablet 200 mg PO QHS PRN (Reason: Insomnia) RF: 0 pregabalin 75 MG capsule 75 mg PO TID RF: 0 tizanidine 4 MG tablet 6 mg PO TID PRN PRN (Reason: Spasms) RF: 0 buspirone 30 mg tablet 30 mg PO BID RF: 0 furosemide 20 MG tablet 20 mg PO DAILY RF: 0 Hold Instructions: Resume on 01/22/21. mirabegron 25 MG tablet extended release 24 hr 25 mg PO DAILY RF: 0 apixaban 5 MG tablet 5 mg PO BID RF: 0 clopidogrel 75 mg tablet 75 mg PO DAILY RF: 0 promethazine 25 mg Tablet 25 mg PO BID PRN PRN (Reason: Nausea) RF: 0 escitalopram oxalate 20 mg Tablet 20 mg PO DAILY RF: 0 Advair HFA 230-21 mcg/actuation Hfa Aerosol Inhaler 2 puff INHALATION Q4H PRN PRN (Reason: sob/wheezing) RF: 0 albuterol sulfate 1 PUFF HFA aerosol inhaler 2 puff IH Q4H PRN PRN (Reason: SOB &/or Wheezing ) RF: 0 fluticasone propionate 50 mcg/actuation [place],Suspension 1 spray INTRANASAL BID RF: 0 amlodipine 2.5 mg tablet 10 mg PO DAILY RF: 0 metoprolol succinate 25 mg tablet extended release 24 hr 50 mg PO DAILY RF: 0 potassium chloride [K-Tab] 20 mEq tablet extended release 40 meq PO DAILY RF: 0 dicyclomine 10 MG capsule 20 mg PO TIDAC RF: 0 lisinopril 20 MG tablet 10 mg PO QHS Qty: 0 RF: 0 hydrocodone-acetaminophen 5-325 mg tablet 2 tab PO Q6H PRN PRN (Reason: Pain) RF: 0 nitrofurantoin macrocrystal 100 mg capsule 100 mg PO Q12H Qty: 10 RF: 0 tiotropium bromide 2.5 mcg/actuation mist 2 puff INHALATION DAILY Qty: 4 RF: 3 montelukast 10 mg tablet 10 mg PO QHS Qty: 30 RF: 5 Primary Care Provider: Janel Taylor Referrals: Janel Taylor MD [Primary Care Provider] - Activity Restrictions/Additional Instructions: Please follow-up with the orthopedic surgeon who did your hip replacement because you are having recurrent dislocations. To avoid dislocating her hip again do not bend too far when standing. Do not bend the hip past 90 degrees. Disposition Disposition: Home, Self Care Discharge Date/Time: 04/24/21 22:11
[2021-04-24] MEDS: Ondansetron 4 MG/2 ML Vial IV (19:48)
[2021-04-24] MEDS: HYDROmorphone 0.5 MG/0.5 ML SYRINGE IV (19:50)
--- NOTE | 2021-04-24 20:32 | RAD_ITS ---
STUDY: X-RAY - RIGHT HIP REASON FOR EXAM: Female, 55 years old. Injury/Pain, post reduction TECHNIQUE: 2 views right hip. COMPARISON: Earlier today FINDINGS: There is a non-specific bowel gas pattern. Normal visualized soft tissue structures. Visualized right hemipelvis is unremarkable. Right hip prosthesis is normally aligned RAD/HIP, UNI W/ Pelvis 2-3 Views IMPRESSION: Normal alignment of right hip prosthesis. Electronically Signed: Nitin Gimenez MD (Bro[place]) at 21:17 EST ,
[2021-04-24] MEDS: Propofol 200 MG/20 ML Vial IV BOLUS (21:01)
--- NOTE | 2021-04-24 21:02 | ED.RN ---
AFTER COMPLETION OF PROCEDURAL SEDATION FOR CLOSED REDUCTION, PT'S SPO2 SATS APPEARED ERRATIC. NON-REBREATHER WAS PLACED ON PT W/15L BLED IN O2 SATS REMAINED VARIABLE, BUT FREQUENTLY <60%. AMBU BAG WAS THEN USED ON PT W/15L BLED IN FOR APPROXIMATELY 2M. PT'S SPO2 THEN INCREASED AND STABILIZED AT >90%. PT WAS THEN WEANED DOWN TO NON-REBREATHER, NC@15, 10, 6 AND THEN ULTIMATELY DOWN TO 4L AT 2055. PT'S SPO2 THEN REMAINED STABLE.
== END 2021-04-24 22:11 | disposition home or self-care (01) ==
PROVIDERS: Emergency Provider Physician Assistant; PCP Family Medicine; Visit Provider Physician Assistant
DX: T84.020A Dislocation of internal right hip prosthesis, initial encounter (principal); F25.9 Schizoaffective disorder, unspecified; F20.9 Schizophrenia, unspecified; J44.9 Chronic obstructive pulmonary disease, unspecified; E66.01 Morbid (severe) obesity due to excess calories; Z68.42 Body mass index [BMI] 45.0-49.9, adult; E11.9 Type 2 diabetes mellitus without complications; Z79.4 Long term (current) use of insulin; X50.1XXA Overexertion from prolonged static or awkward postures, initial encounter; Y92.810 Car as the place of occurrence of the external cause; R09.02 Hypoxemia; I10 Essential (primary) hypertension; E78.00 Pure hypercholesterolemia, unspecified; K21.9 Gastro-esophageal reflux disease without esophagitis; I25.2 Old myocardial infarction; F17.210 Nicotine dependence, cigarettes, uncomplicated; Z96.641 Presence of right artificial hip joint; Z99.81 Dependence on supplemental oxygen; G47.33 Obstructive sleep apnea (adult) (pediatric); Z79.01 Long term (current) use of anticoagulants; Z98.84 Bariatric surgery status
CPT/HCPCS: 27265; 73502; 96374; 96375; 99156; 99157; 99285; J7030; A4216; J2405

== ENCOUNTER 2021-05-05 10:02 | Emergency (ER) | payer MEDICARE, MEDICAID, SELFPAY ==
[2021-05-05] VITALS (9 sets, daily range): BP systolic 81–136; BP diastolic 40–67; PULSE 68–77; RESP 14–22; TEMP 36.6; O2SAT 92–100; BMI 38.2
--- NOTE | 2021-05-05 10:13 | RAD_ITS ---
STUDY: X-RAY - PELVIS AND RIGHT HIP REASON FOR EXAM: Female, 55 years old. Pain, dislocation TECHNIQUE: 2 views of the pelvis and hip. COMPARISON: None. FINDINGS: There is evidence of superior posterior dislocation of the prosthetic right hip joint. Degenerative changes of the lumbar spine. Stable 2.1 cm calcified nodule in the left lower abdomen adjacent to the transverse processes of the L5 vertebrae. RAD/HIP, UNI W/ Pelvis 2-3 Views IMPRESSION: Superior and posterior dislocation of the prosthetic right hip joint. Electronically Signed: Manuelito Silva MD at 11:15 EST ,
--- NOTE | 2021-05-05 10:17 | EDS_ITS ---
HPI History of Present Illness Chief Complaint: Lower Extremity Injury Informant: patient Narrative Narrative: Patient presents with suspected right hip dislocation. She had surgery somewhere between 6 and 8 years ago up at the [facility]. She had a dislocation shortly after surgery. This would now be her third dislocation in the last month and a half. One had to be transferred to [place]. 1 was able to read placed here. The day of discharge she states she has leaned forward and it popped out. She did not fall to the ground. She has no discomfort other than at the right hip. She was feeling in her normal state of health prior to this. She is not having any problems with her COPD asthma. She has not used a breathing treatment recently but does not take them regularly. She has been taking all her meds. Her last food intake was last night. She did drink a part of a glass of Coke about an hour ago. Has been treated for the last week she has not had problems with propofol which has been used here before. She would like something for pain. She has tolerated Dilaudid without problems. Motion makes the pain worse. Rest her medicines have helped it before. [facility] Medical History Anemia Asthma Benign essential hypertension Bleeding tendency Chest pain Chronic cough Chronic narcotic use COPD (chronic obstructive pulmonary disease) Current use of insulin Delayed surgical wound healing Diabetes Emphysema of lung Gastroesophageal reflux disease High cholesterol Hip osteoarthritis History of pulmonary embolism History of stress test Hypertension Irregular heart beat Irritable bowel Morbid obesity Morbid obesity with BMI of 45.0-49.9, adult Myocardial infarct On home oxygen therapy RACHEL (obstructive sleep apnea) Pancreatitis Peptic ulcer Pulmonary hypertension Schizoaffective disorder Schizophrenia Sleep apnea Smoker Spinal stenosis of lumbar region at multiple levels Stage 2 moderate COPD by GOLD classification Thyroid nodule Tobacco abuse Ulcer Vitamin D deficiency Home Medications atorvastatin 80 mg PO QHS 08/22/15 [History Last Taken 03/15/21] nitroglycerin 0.4 mg SL PRN PRN 11/08/16 [History Last Taken 11/01/17 0.4 MG] pregabalin 75 mg PO TID 03/08/18 [History Last Taken 03/15/21] risperidone 4 mg PO QHS 03/08/18 [History Last Taken 03/15/21] tizanidine 6 mg PO TID PRN PRN 03/08/18 [History Last Taken 12/18/19 14:37] trazodone 200 mg PO QHS PRN 03/08/18 [History Last Taken 03/15/21] furosemide 20 mg PO DAILY 11/20/18 [History Last Taken 03/15/21] mirabegron 25 mg PO DAILY 11/20/18 [History Last Taken 03/15/21] apixaban 5 mg PO BID 05/02/19 [History Last Taken 03/15/21] buspirone 30 mg tablet 30 mg PO BID tab 06/27/19 [History Last Taken 03/15/21] sucralfate 1 gram tablet 1 g PO QACHS 06/27/19 [History Last Taken 03/15/21] tiotropium bromide 2.5 mcg/actuation mist for inhalation 2 puff INHALATION DAILY #4 g 09/30/19 [Rx Last Taken 03/15/21] montelukast 10 mg tablet 10 mg PO QHS #30 tab 10/30/19 [Rx Last Taken 03/15/21] clopidogrel 75 mg PO DAILY 07/31/20 [History Last Taken 03/15/21] Advair HFA 2 puff INHALATION Q4H PRN PRN 11/14/20 [History Last Taken 03/15/21] albuterol sulfate 2 puff IH Q4H PRN PRN 11/14/20 [History Last Taken Unknown] amlodipine 10 mg PO DAILY 11/14/20 [History Last Taken 03/15/21] escitalopram oxalate 20 mg PO DAILY 11/14/20 [History Last Taken 03/15/21] fluticasone propionate 1 spray INTRANASAL BID 11/14/20 [History Last Taken 03/15/21] metoprolol succinate 50 mg PO DAILY 11/14/20 [History Last Taken 03/15/21] promethazine 25 mg PO BID PRN PRN 11/14/20 [History Last Taken Unknown] potassium chloride [K-Tab] 40 meq PO DAILY 01/13/21 [History Last Taken 03/15/21] dicyclomine 20 mg PO TIDAC 01/14/21 [History Last Taken 03/15/21] lisinopril 10 mg PO QHS #0 tab 01/19/21 [Rx Last Taken 03/15/21] hydrocodone-acetaminophen 2 tab PO Q6H PRN PRN 03/16/21 [History Last Taken Unknown] nitrofurantoin macrocrystal 100 mg PO Q12H #10 cap 03/18/21 [Rx Last Taken Unknown] hydrocodone-acetaminophen 1 tab PO Q6H PRN 3 Days #12 tab 05/05/21 [Rx Last Taken Unknown] Allergy/AdvReac Type Severity Reaction Status Date / Time amoxicillin Allergy Itching Verified 05/05/21 10:11 erythromycin base Allergy Unknown Verified 05/05/21 10:11 methadone Allergy Itching Verified 05/05/21 10:11 metolazone Allergy Unknown Verified 05/05/21 10:11 Penicillins Allergy Hives Verified 05/05/21 10:11 Sulfa (Sulfonamide Allergy Hives Verified 05/05/21 10:11 Antibiotics) clarithromycin [From Biaxin] AdvReac Nausea Verified 05/05/21 10:11 ibuprofen AdvReac 3 BLEEDING Verified 05/05/21 10:11 ULCERS morphine AdvReac HEADACHE Verified 05/05/21 10:11 oxycodone [From Percocet] AdvReac Itching Verified 05/05/21 10:11 Family History Mother Heart disease Cancer ovarian Father Hypertension Arthritis Hyperlipemia Grandmother Breast cancer Heart disease Grandfather Heart disease Surgical History H/O cardiac catheterization H/O heart artery stent History of appendectomy history of carpal tunnel release left wrist History of carpal tunnel surgery of left wrist History of cholecystectomy History of gastric bypass History of PTCA History of right ankle surgery history of right hip surgery History of tonsillectomy Social History household members: none Smoking Status: Current every day smoker tobacco type: cigarettes Tobacco: How many years used: 39 alcohol intake: never substance use type: does not use caffeine: No what type of physical activity do you participate in: none ROS ROS ED Constitutional Constitutional ED: Denies chills or fever(s) Eyes Eyes: Denies change in vision ENT ENT ED: Denies rhinorrhea or sore throat Cardiovascular Cardiovascular: Denies palpitations Respiratory/Chest Respiratory/Chest: Reports other Details: Patient feels her COPD and asthma is well controlled and not having any issues at this time. ; Denies cough, dyspnea, dyspnea on exertion or sputum Gastrointestinal Gastrointestinal: Denies nausea or vomiting Genitourinary Genitourinary ED: Denies dysuria Musculoskeletal Musculoskeletal: Reports other Details: See history of present illness. Integumentary Denies rash Neurologic Neurologic: Denies headache(s) Endocrine Endocrinology: Denies polydipsia or polyuria Allergic/Immunologic Allergic/Immunologic ED: Denies mouth swelling, tongue swelling or urticaria EXAM Physical Exam Const Vital Signs: 05/05/21 10:03 05/05/21 10:30 05/05/21 11:36 Temperature 97.8 F Temperature Source Oral Pulse Rate 77 76 72 Pulse Rate [1] Respiratory Rate 16 22 H 21 H Respiratory Rate [1] Blood Pressure 81/40 L 127/67 H Blood Pressure [1] Blood Pressure Mean 53 Pulse Ox 95 96 100 Oxygen Delivery Method Room Air Room Air Oxygen Delivery Method [1] Oxygen Flow Rate (L/min) [1] 05/05/21 11:40 05/05/21 11:47 05/05/21 11:53 Temperature Temperature Source Pulse Rate 72 68 Pulse Rate [1] 73 Respiratory Rate 16 22 H Respiratory Rate [1] 14 Blood Pressure 95/63 120/50 L Blood Pressure [1] 136/60 H Blood Pressure Mean Pulse Ox 97 96 Oxygen Delivery Method Room Air Room Air Oxygen Delivery Method [1] Non-Rebreather Oxygen Flow Rate (L/min) [1] 20 05/05/21 11:59 Temperature Temperature Source Pulse Rate 75 Pulse Rate [1] Respiratory Rate 19 H Respiratory Rate [1] Blood Pressure 104/62 Blood Pressure [1] Blood Pressure Mean Pulse Ox 92 Oxygen Delivery Method Oxygen Delivery Method [1] Oxygen Flow Rate (L/min) [1] Positive well nourished and well developed Constitutional Narrative: Patient is awake alert. She does look a bit uncomfortable. She will be medicated. General Appearance ED: well developed; Negative for cyanotic or diaphoretic HEENT Reports dry mucous membranes HEENT Narrative: Patient is mildly dry mucous membrane. Mallampati of 1. Mouth ED: Yes dry mucous membranes Mouth: dry mucous membranes Eyes EOMs intact bilaterally Neck no JVD Neck Narrative: No stridor. Range of motion seems good normal and intact. Chest Wall inspection of chest normal Resp normal respiratory effort and clear to auscultation bilaterally Resp Narrative: No wheezing now. However, she does have COPD and asthma. I will give her breathing treatment to maximize her pulmonary condition prior to sedation. Effort and Inspection: Negative for pain with movement Auscultation: Negative for rales, rhonchi or wheezes Cardio regular rate and regular rhythm GI normal to inspection, nondistended, normoactive bowel sounds and non-tender Palpation: soft Back/Spine Thoracic Spine / Upper Back: Negative for thoracic spinal tenderness Lumbar Spine / Lower Back: Negative for lumbar spinal tenderness Extremity Extremity Narrative: Right leg is flexed and shortened. This is consistent with dislocation. Sensation pulses are intact. Neuro oriented x3 Sensorium / Orientation: alert Psych mental status grossly normal Skin no rashes or lesions noted MDM MDM MDM Narrative Medical decision making narrative: Procedure: Procedural sedation and hip reduction: I discussed risks benefits and options with the patient. She is familiar with these that she has had this done twice recently. We did timeout. Patient re ceived a total of 80 mg of propofol. Good anesthesia was achieved. She was kept on a nonrebreather. I used Captain Romero technique and reduce the hip. It went in quite easily. It was out to length. Good internal/external rotation. Post procedure x-ray shows placement and pain is significantly reduced. Knee immobilizer is placed. Patient will be sent home. She and the family are working on possible assisted living. Patient really does not want that but the family thinks it would help. This is something they were evidently thinking of prior to even these hip issues. At this time we will get her home. Lab Data Attestation: I reviewed the patient's lab results. Radiography Diagnostic Testing: Clinical Impression(s) from Imaging Studies Hip/Pelvis X-Ray 05/05/21 10:13 IMPRESSION: Superior and posterior dislocation of the prosthetic right hip joint. Electronically Signed: Manuelito Silva MD at 11:15 EST , Hip/Pelvis X-Ray 05/05/21 11:55 IMPRESSION: Satisfactory reduction of the prosthetic right hip joint. Electronically Signed: Manuelito Silva MD at 12:11 EST , Procedures Other Procedures Procedure(s): Procedural sedation and right hip reduction of dislocation. See MDM Discharge Plan Triage Chief Complaint: Lower Extremity Injury ED Provider: Jaspreet Arora Dx/Rx/DC Orders Clinical Impression: Dislocation of right hip Instructions: ED Hip Replace Dislocation Reduc Prescriptions: New hydrocodone-acetaminophen 5-325 mg tablet 1 tab PO Q6H PRN (Reason: pain) 3 Days Qty: 12 RF: 0 No Action sucralfate 1 gram tablet 1 g PO QACHS RF: 0 atorvastatin 80 MG tablet 80 mg PO QHS RF: 0 nitroglycerin 0.4 MG tablet, sublingual 0.4 mg SL PRN PRN (Reason: Cardiac/Chest Pain) RF: 0 risperidone 4 mg tablet 4 mg PO QHS RF: 0 trazodone 100 MG tablet 200 mg PO QHS PRN (Reason: Insomnia) RF: 0 pregabalin 75 MG capsule 75 mg PO TID RF: 0 tizanidine 4 MG tablet 6 mg PO TID PRN PRN (Reason: Spasms) RF: 0 buspirone 30 mg tablet 30 mg PO BID RF: 0 furosemide 20 MG tablet 20 mg PO DAILY RF: 0 Hold Instructions: Resume on 01/22/21. mirabegron 25 MG tablet extended release 24 hr 25 mg PO DAILY RF: 0 apixaban 5 MG tablet 5 mg PO BID RF: 0 clopidogrel 75 mg tablet 75 mg PO DAILY RF: 0 promethazine 25 mg Tablet 25 mg PO BID PRN PRN (Reason: Nausea) RF: 0 escitalopram oxalate 20 mg Tablet 20 mg PO DAILY RF: 0 Advair HFA 230-21 mcg/actuation Hfa Aerosol Inhaler 2 puff INHALATION Q4H PRN PRN (Reason: sob/wheezing) RF: 0 albuterol sulfate 1 PUFF HFA aerosol inhaler 2 puff IH Q4H PRN PRN (Reason: SOB &/or Wheezing ) RF: 0 fluticasone propionate 50 mcg/actuation [place],Suspension 1 spray INTRANASAL BID RF: 0 amlodipine 2.5 mg tablet 10 mg PO DAILY RF: 0 metoprolol succinate 25 mg tablet extended release 24 hr 50 mg PO DAILY RF: 0 potassium chloride [K-Tab] 20 mEq tablet extended release 40 meq PO DAILY RF: 0 dicyclomine 10 MG capsule 20 mg PO TIDAC RF: 0 lisinopril 20 MG tablet 10 mg PO QHS Qty: 0 RF: 0 hydrocodone-acetaminophen 5-325 mg tablet 2 tab PO Q6H PRN PRN (Reason: Pain) RF: 0 nitrofurantoin macrocrystal 100 mg capsule 100 mg PO Q12H Qty: 10 RF: 0 tiotropium bromide 2.5 mcg/actuation mist 2 puff INHALATION DAILY Qty: 4 RF: 3 montelukast 10 mg tablet 10 mg PO QHS Qty: 30 RF: 5 Primary Care Provider: Janel Taylor Referrals: Janel Taylor MD [Primary Care Provider] - As Needed Activity Restrictions/Additional Instructions: Please follow-up with your orthopedic surgeon as soon as possible. Disposition Disposition: Home, Self Care
[2021-05-05] MEDS: Ipratropium/Albuterol Sulfate 3 ML AMPUL.NEB INHALATION (10:28)
[2021-05-05] MEDS: Ondansetron 4 MG/2 ML Vial IV (10:41)
[2021-05-05] MEDS: HYDROmorphone 0.5 MG/0.5 ML SYRINGE IV (10:41)
[2021-05-05] MEDS: Propofol 200 MG/20 ML Vial IV BOLUS (11:40)
--- NOTE | 2021-05-05 11:55 | RAD_ITS ---
STUDY: X-RAY - PELVIS AND RIGHT HIP REASON FOR EXAM: Female, 55 years old. Post reduction TECHNIQUE: 1 views of the pelvis and hip. COMPARISON: Comparison is made with prior study done earlier in the day. FINDINGS: Satisfactory reduction of the prostatic right hip joint. RAD/Hip 1 view with Pelvis IMPRESSION: Satisfactory reduction of the prosthetic right hip joint. Electronically Signed: Manuelito Silva MD at 12:11 EST ,
--- NOTE | 2021-05-05 13:26 | CM.ED ---
Social Work Consult: Discharge Planning Referral Source: Nursing Met with patient in room. Introduced self and social sciences professor role. Patient agreeable to speak with this social sciences professor. Patient reports to live at home alone and patient sister's are concerned about patient being able to take care of apartment any longer. Patient states to be able to take care of self in the home such as prepping meals and dressing. Patient states to have attempted to get services through [place] [employer] due to patient age and was declined. Patient states to be working on getting into another apartment that is handicap set up and will be better. Patient reports to be aware of services in the community but not able to afford someone to come into the home and assist with care of the apartment. Patient reports to have attempted to obtain full Medicaid but I don't qualify. Patient states to feel safe in the home/community currently. This social sciences professor not able to provide patient with any new information and encouraged patient to continue to explore other housing options as this appears to be something that will help patient. Support provided. Medical team updated. Monica ARRINGTON, SUSSY
== END 2021-05-05 14:09 | disposition home or self-care (01) ==
PROVIDERS: Emergency Provider Emergency Medicine; PCP Family Medicine; Visit Provider Emergency Medicine
DX: T84.020A Dislocation of internal right hip prosthesis, initial encounter (principal); F25.9 Schizoaffective disorder, unspecified; J44.9 Chronic obstructive pulmonary disease, unspecified; I27.20 Pulmonary hypertension, unspecified; E66.01 Morbid (severe) obesity due to excess calories; E11.9 Type 2 diabetes mellitus without complications; Y83.8 Other surgical procedures as the cause of abnormal reaction of the patient, or of later complication, without mention of misadventure at the time of the procedure; F17.210 Nicotine dependence, cigarettes, uncomplicated; I10 Essential (primary) hypertension; E78.00 Pure hypercholesterolemia, unspecified; K21.9 Gastro-esophageal reflux disease without esophagitis; Z86.711 Personal history of pulmonary embolism; Z87.19 Personal history of other diseases of the digestive system; Z99.81 Dependence on supplemental oxygen; G47.33 Obstructive sleep apnea (adult) (pediatric); E55.9 Vitamin D deficiency, unspecified; Z79.01 Long term (current) use of anticoagulants; Z79.899 Other long term (current) drug therapy; Z95.5 Presence of coronary angioplasty implant and graft; Z68.38 Body mass index [BMI] 38.0-38.9, adult
CPT/HCPCS: 27265; 73501; 73502; 94640; 96361; 96374; 96375; 99285; J7030; A4216; J2405

== ENCOUNTER 2021-05-09 16:11 | Emergency (ER) | payer MEDICARE, MEDICAID, SELFPAY ==
[2021-05-09] VITALS (16 sets, daily range): BP systolic 118–204; BP diastolic 89–142; PULSE 94–132; RESP 12–25; TEMP 37.2; O2SAT 91–100; BMI 38.6
--- NOTE | 2021-05-09 16:38 | ED.VIS.LOWEX ---
HPI History of Present Illness HPI Narrative: Dislocated right hip. Chief Complaint: Lower Extremity Injury Informant: patient Onset/Context/Timing Onset: Today Context: Sudden Onset Timing: Continuous Current Severity: Moderate Maximum Severity: Moderate Associated Symptoms Associated Symptoms: Positive for Loss of Funtion; Negative for Parasthesia and Weakness Narrative Narrative: 55-year-old female had a right hip replaced about 7 years ago at the [facility]. She states that today she bent over and she dislocated her hip. States this is happened about 4 times in the last 3 months. She denies any falls. She is not had any problems with constant sedation. She says she has not eaten at all today. Denies any other complaints. Prior similar symptoms: Yes Recent Illness/Hospitalization: No PFSH PFSH Medical History Anemia Asthma Benign essential hypertension Bleeding tendency Chest pain Chronic cough Chronic narcotic use COPD (chronic obstructive pulmonary disease) Current use of insulin Delayed surgical wound healing Diabetes Emphysema of lung Gastroesophageal reflux disease High cholesterol Hip osteoarthritis History of pulmonary embolism History of stress test Hypertension Irregular heart beat Irritable bowel Morbid obesity Morbid obesity with BMI of 45.0-49.9, adult Myocardial infarct On home oxygen therapy RACHEL (obstructive sleep apnea) Pancreatitis Peptic ulcer Pulmonary hypertension Schizoaffective disorder Schizophrenia Sleep apnea Smoker Spinal stenosis of lumbar region at multiple levels Stage 2 moderate COPD by GOLD classification Thyroid nodule Tobacco abuse Ulcer Vitamin D deficiency Home Medications atorvastatin 80 mg PO QHS 08/22/15 [History Last Taken 03/15/21] nitroglycerin 0.4 mg SL PRN PRN 11/08/16 [History Last Taken 11/01/17 0.4 MG] pregabalin 75 mg PO TID 03/08/18 [History Last Taken 03/15/21] risperidone 4 mg PO QHS 03/08/18 [History Last Taken 03/15/21] tizanidine 6 mg PO TID PRN PRN 03/08/18 [History Last Taken 12/18/19 14:37] trazodone 200 mg PO QHS PRN 03/08/18 [History Last Taken 03/15/21] furosemide 20 mg PO DAILY 11/20/18 [History Last Taken 03/15/21] mirabegron 25 mg PO DAILY 11/20/18 [History Last Taken 03/15/21] apixaban 5 mg PO BID 05/02/19 [History Last Taken 03/15/21] buspirone 30 mg tablet 30 mg PO BID tab 06/27/19 [History Last Taken 03/15/21] sucralfate 1 gram tablet 1 g PO QACHS 06/27/19 [History Last Taken 03/15/21] tiotropium bromide 2.5 mcg/actuation mist for inhalation 2 puff INHALATION DAILY #4 g 09/30/19 [Rx Last Taken 03/15/21] montelukast 10 mg tablet 10 mg PO QHS #30 tab 10/30/19 [Rx Last Taken 03/15/21] clopidogrel 75 mg PO DAILY 07/31/20 [History Last Taken 03/15/21] Advair HFA 2 puff INHALATION Q4H PRN PRN 11/14/20 [History Last Taken 03/15/21] albuterol sulfate 2 puff IH Q4H PRN PRN 11/14/20 [History Last Taken Unknown] amlodipine 10 mg PO DAILY 11/14/20 [History Last Taken 03/15/21] escitalopram oxalate 20 mg PO DAILY 11/14/20 [History Last Taken 03/15/21] fluticasone propionate 1 spray INTRANASAL BID 11/14/20 [History Last Taken 03/15/21] metoprolol succinate 50 mg PO DAILY 11/14/20 [History Last Taken 03/15/21] promethazine 25 mg PO BID PRN PRN 11/14/20 [History Last Taken Unknown] potassium chloride [K-Tab] 40 meq PO DAILY 01/13/21 [History Last Taken 03/15/21] dicyclomine 20 mg PO TIDAC 01/14/21 [History Last Taken 03/15/21] lisinopril 10 mg PO QHS #0 tab 01/19/21 [Rx Last Taken 03/15/21] hydrocodone-acetaminophen 2 tab PO Q6H PRN PRN 03/16/21 [History Last Taken Unknown] nitrofurantoin macrocrystal 100 mg PO Q12H #10 cap 03/18/21 [Rx Last Taken Unknown] hydrocodone-acetaminophen 1 tab PO Q6H PRN 3 Days #12 tab 05/05/21 [Rx Last Taken Unknown] Allergy/AdvReac Type Severity Reaction Status Date / Time amoxicillin Allergy Itching Verified 05/05/21 10:11 erythromycin base Allergy Unknown Verified 05/05/21 10:11 methadone Allergy Itching Verified 05/05/21 10:11 metolazone Allergy Unknown Verified 05/05/21 10:11 Penicillins Allergy Hives Verified 05/05/21 10:11 Sulfa (Sulfonamide Allergy Hives Verified 05/05/21 10:11 Antibiotics) clarithromycin [From Biaxin] AdvReac Nausea Verified 05/05/21 10:11 ibuprofen AdvReac 3 BLEEDING Verified 05/05/21 10:11 ULCERS morphine AdvReac HEADACHE Verified 05/05/21 10:11 oxycodone [From Percocet] AdvReac Itching Verified 05/05/21 10:11 Family History Mother Heart disease Cancer ovarian Father Hypertension Arthritis Hyperlipemia Grandmother Breast cancer Heart disease Grandfather Heart disease Surgical History H/O cardiac catheterization H/O heart artery stent History of appendectomy history of carpal tunnel release left wrist History of carpal tunnel surgery of left wrist History of cholecystectomy History of gastric bypass History of PTCA History of right ankle surgery history of right hip surgery History of tonsillectomy Social History household members: none Smoking Status: Current every day smoker tobacco type: cigarettes Tobacco: How many years used: 39 alcohol intake: never substance use type: does not use caffeine: No what type of physical activity do you participate in: none ROS ROS ED ROS Narrative Denies recent illness. Review of Systems ROS Unobtainable: Denies due to encephalopathy Constitutional Constitutional ED: Denies fever(s) Eyes Eyes: Denies change in vision ENT ENT ED: Denies ear pain Cardiovascular Cardiovascular: Denies chest pain Respiratory/Chest Respiratory/Chest: Denies dyspnea Gastrointestinal Gastrointestinal: Denies abdominal pain Genitourinary Genitourinary ED: Denies dysuria Musculoskeletal Musculoskeletal: Denies myalgias Integumentary Denies rash Neurologic Neurologic: Denies headache(s) Psychiatric Psychiatric: Denies depression Endocrine Endocrinology: Denies polyuria Hematologic/Lymphatic Hematologic/Lymphatic: Denies easy bruising Allergic/Immunologic Allergic/Immunologic ED: Denies urticaria EXAM Physical Exam Narrative Exam Narrative: 35-year-old female sitting upright in bed with blankets underneath her right knee. Vital signs are stable afebrile. H EENT exam unremarkable. Moist extremities. Neck nontender. Lungs clear to auscultation bilaterally. Heart regular rhythm rate about 105. No murmur. Chest were nontender. Abdomen soft nontender. Pelvic girdle intact. Right hip pain on palpation. Appears to be dislocated. Decreased range of motion. Pain with attempted range of motion. Distal right femur, knee, lower leg ankle and foot are nontender. Dorsi plantarflexion intact of the right foot and ankle. Left lower both upper extremities are unremarkable. Neurologically she is awake and alert. Const Vital Signs: 05/09/21 16:12 05/09/21 17:24 05/09/21 17:30 Temperature 98.9 F Temperature Source Oral Pulse Rate 109 H 104 H 126 H Pulse Rate [2] Pulse Rate [3] Pulse Rate [4] Pulse Rate [5] Pulse Rate [6] Respiratory Rate 22 H 14 16 Respiratory Rate [2] Respiratory Rate [3] Respiratory Rate [4] Respiratory Rate [5] Respiratory Rate [6] Blood Pressure 176/89 H 175/125 H 196/124 H Blood Pressure [2] Blood Pressure [3] Blood Pressure [4] Blood Pressure [5] Blood Pressure [6] Blood Pressure Mean 118 Pulse Ox 99 100 100 Oxygen Delivery Method Room Air Nasal Cannula Nasal Cannula Oxygen Delivery Method [2] Oxygen Delivery Method [3] Oxygen Delivery Method [5] Oxygen Delivery Method [6] Oxygen Flow Rate (L/min) 2 Oxygen Flow Rate (L/min) [2] Oxygen Flow Rate (L/min) [3] Oxygen Flow Rate (L/min) [6] 05/09/21 17:31 05/09/21 17:35 05/09/21 17:40 Temperature Temperature Source Pulse Rate 107 H 111 H Pulse Rate [2] 94 Pulse Rate [3] Pulse Rate [4] Pulse Rate [5] Pulse Rate [6] Respiratory Rate 17 14 Respiratory Rate [2] 13 Respiratory Rate [3] Respiratory Rate [4] Respiratory Rate [5] Respiratory Rate [6] Blood Pressure 179/101 H 177/103 H Blood Pressure [2] 118/112 H Blood Pressure [3] Blood Pressure [4] Blood Pressure [5] Blood Pressure [6] Blood Pressure Mean Pulse Ox 96 97 Oxygen Delivery Method Room Air Room Air Oxygen Delivery Method [2] Nasal Cannula Oxygen Delivery Method [3] Oxygen Delivery Method [5] Oxygen Delivery Method [6] Oxygen Flow Rate (L/min) Oxygen Flow Rate (L/min) [2] 15 Oxygen Flow Rate (L/min) [3] Oxygen Flow Rate (L/min) [6] 05/09/21 18:50 05/09/21 18:54 05/09/21 19:05 Temperature Temperature Source Pulse Rate 108 H 121 H Pulse Rate [2] Pulse Rate [3] 110 H Pulse Rate [4] 115 H Pulse Rate [5] Pulse Rate [6] Respiratory Rate 12 16 Respiratory Rate [2] Respiratory Rate [3] 15 Respiratory Rate [4] 14 Respiratory Rate [5] Respiratory Rate [6] Blood Pressure 194/98 H 193/109 H Blood Pressure [2] Blood Pressure [3] 189/142 H Blood Pressure [4] 163/130 H Blood Pressure [5] Blood Pressure [6] Blood Pressure Mean Pulse Ox 96 91 Oxygen Delivery Method Nasal Cannula Room Air Oxygen Delivery Method [2] Oxygen Delivery Method [3] Nasal Cannula Oxygen Delivery Method [5] Oxygen Delivery Method [6] Oxygen Flow Rate (L/min) 2 Oxygen Flow Rate (L/min) [2] Oxygen Flow Rate (L/min) [3] 5 Oxygen Flow Rate (L/min) [6] 05/09/21 19:10 05/09/21 19:15 05/09/21 19:59 Temperature Temperature Source Pulse Rate 122 H 114 H 110 H Pulse Rate [2] Pulse Rate [3] Pulse Rate [4] Pulse Rate [5] Pulse Rate [6] Respiratory Rate 14 25 H 13 Respiratory Rate [2] Respiratory Rate [3] Respiratory Rate [4] Respiratory Rate [5] Respiratory Rate [6] Blood Pressure 163/94 H 153/102 H 204/105 H Blood Pressure [2] Blood Pressure [3] Blood Pressure [4] Blood Pressure [5] Blood Pressure [6] Blood Pressure Mean Pulse Ox 92 96 95 Oxygen Delivery Method Room Air Room Air Room Air Oxygen Delivery Method [2] Oxygen Delivery Method [3] Oxygen Delivery Method [5] Oxygen Delivery Method [6] Oxygen Flow Rate (L/min) Oxygen Flow Rate (L/min) [2] Oxygen Flow Rate (L/min) [3] Oxygen Flow Rate (L/min) [6] 05/09/21 20:00 05/09/21 20:06 05/09/21 20:11 Temperature Temperature Source Pulse Rate 102 H 132 H Pulse Rate [2] Pulse Rate [3] Pulse Rate [4] Pulse Rate [5] 105 H Pulse Rate [6] 103 H Respiratory Rate 18 13 Respiratory Rate [2] Respiratory Rate [3] Respiratory Rate [4] Respiratory Rate [5] 12 Respiratory Rate [6] 12 Blood Pressure 162/94 H 192/99 H Blood Pressure [2] Blood Pressure [3] Blood Pressure [4] Blood Pressure [5] 191/134 H Blood Pressure [6] 162/94 H Blood Pressure Mean Pulse Ox 100 98 Oxygen Delivery Method Nasal Cannula Room Air Oxygen Delivery Method [2] Oxygen Delivery Method [3] Oxygen Delivery Method [5] Room Air Oxygen Delivery Method [6] Nasal Cannula Oxygen Flow Rate (L/min) 6 Oxygen Flow Rate (L/min) [2] Oxygen Flow Rate (L/min) [3] Oxygen Flow Rate (L/min) [6] 6 05/09/21 20:16 Temperature Temperature Source Pulse Rate 110 H Pulse Rate [2] Pulse Rate [3] Pulse Rate [4] Pulse Rate [5] Pulse Rate [6] Respiratory Rate 15 Respiratory Rate [2] Respiratory Rate [3] Respiratory Rate [4] Respiratory Rate [5] Respiratory Rate [6] Blood Pressure 157/93 H Blood Pressure [2] Blood Pressure [3] Blood Pressure [4] Blood Pressure [5] Blood Pressure [6] Blood Pressure Mean Pulse Ox 97 Oxygen Delivery Method Room Air Oxygen Delivery Method [2] Oxygen Delivery Method [3] Oxygen Delivery Method [5] Oxygen Delivery Method [6] Oxygen Flow Rate (L/min) Oxygen Flow Rate (L/min) [2] Oxygen Flow Rate (L/min) [3] Oxygen Flow Rate (L/min) [6] Positive well nourished, well developed and obese; Negative for cachectic, contractures or unkempt General Appearance ED: well developed and NAD; Negative for unkempt, cachectic or contractures Nutritional Appearance: obese; Negative for cachectic HEENT Reports moist mucous membranes normocephalic and atraumatic; Negative for trauma or tenderness Eyes PERRL Neck full ROM and supple Thyroid: Negative for tender Chest Wall inspection of chest normal and palpation of chest normal Resp normal respiratory effort, no retractions and clear to auscultation bilaterally Auscultation: Negative for rales, rhonchi or wheezes Cardio regular rhythm and no murmurs; Negative for regular rate, S1 normal heart sound or S2 normal heart sound Rate: tachycardic GI non-tender, non-distended and no masses Auscultation: normoactive bowel sounds Palpation: soft; Negative for tender or guarding Back/Spine no CVA tenderness Cervical Spine: Negative for cervical spine tenderness Thoracic Spine / Upper Back: Negative for thoracic spinal tenderness Extremity Negative for normal to inspection or full ROM Extremity Narrative: Right hip dislocated. Decreased range of motion. Pain on palpation. General Extremety ED: Negative for cyanosis or edema General Extremity: Negative for cyanosis or edema Neuro oriented x3 and moves all extremities Sensorium / Orientation: alert, oriented to person, oriented to place and oriented to time; Negative for orientation impaired, confused, lethargic or stuporous Motor Exam: strength 5/5 throughout Psych mental status grossly normal Appearance: Negative for unkempt Mood & Affect: Negative for anxious Skin no wounds Lesions: no lesions Rashes: no rashes Trauma: Negative for abrasion or laceration MDM MDM MDM Narrative Medical decision making narrative: 55-year-old female with a dislocated right hip. Status post replacement about 7 years ago. States she is dislocated 4 times in the last 2 months. She will be given IV Dilaudid and Zofran for pain and to prevent nausea. X-rays to be obtained. She will be consciously sedated with propofol to reduce the hip. Patient consciously sedated with propofol. Unable to get the dislocated hip in. Second attempt again with propofol. Again unsuccessful. I spoke to orthopedic physician on-call Dr. Talamantes came in and I consciously sedated the patient 1/3 time and I was able to reduce the hip. Postreduction film shows good alignment of the prosthetic hip. Patient is awake and alert. She had a knee immobilizer on. She refuses to keep it on and is ready to be discharged home. She has a follow-up appointment with orthopedics. Radiography Diagnostic Testing: Clinical Impression(s) from Imaging Studies Hip/Pelvis X-Ray 05/09/21 16:50 IMPRESSION: Posterior dislocation of the right hip prosthesis. Electronically Signed: Jerome El MD at 17:21 EST , Hip/Pelvis X-Ray 05/09/21 17:37 IMPRESSION: Status post right hip revision orthoplasty. Persistent posterior dislocation of the femoral component in relation to the acetabular component. Electronically Signed: Rick Collins MD at 18:33 EST , Hip/Pelvis X-Ray 05/09/21 19:05 IMPRESSION: Status post right hip revision orthoplasty. Persistent posterior dislocation of the femoral component in relation to the acetabular component. Electronically Signed: Rick Collins MD at 19:37 EST , Hip X-Ray 05/09/21 20:14 IMPRESSION: Femoral head component now appears seated in the acetabular component, compatible with successful reduction of the right hip arthroplasty. Electronically Signed: Tom Newton MD at 20:59 EST , Procedures Other Procedures Procedure(s): Right hip dislocated. Prosthesis. Reduced by orthopedics. Procedural sedation using propofol by emergency physician. Discharge Plan Triage Chief Complaint: Lower Extremity Injury ED Provider: Hema Feng Dx/Rx/DC Orders Clinical Impression: Dislocation of hip, right, closed Instructions: ED Hip Replace Dislocation Reduc Prescriptions: No Action sucralfate 1 gram tablet 1 g PO QACHS RF: 0 atorvastatin 80 MG tablet 80 mg PO QHS RF: 0 nitroglycerin 0.4 MG tablet, sublingual 0.4 mg SL PRN PRN (Reason: Cardiac/Chest Pain) RF: 0 risperidone 4 mg tablet 4 mg PO QHS RF: 0 trazodone 100 MG tablet 200 mg PO QHS PRN (Reason: Insomnia) RF: 0 pregabalin 75 MG capsule 75 mg PO TID RF: 0 tizanidine 4 MG tablet 6 mg PO TID PRN PRN (Reason: Spasms) RF: 0 buspirone 30 mg tablet 30 mg PO BID RF: 0 furosemide 20 MG tablet 20 mg PO DAILY RF: 0 Hold Instructions: Resume on 01/22/21. mirabegron 25 MG tablet extended release 24 hr 25 mg PO DAILY RF: 0 apixaban 5 MG tablet 5 mg PO BID RF: 0 clopidogrel 75 mg tablet 75 mg PO DAILY RF: 0 promethazine 25 mg Tablet 25 mg PO BID PRN PRN (Reason: Nausea) RF: 0 escitalopram oxalate 20 mg Tablet 20 mg PO DAILY RF: 0 Advair HFA 230-21 mcg/actuation Hfa Aerosol Inhaler 2 puff INHALATION Q4H PRN PRN (Reason: sob/wheezing) RF: 0 albuterol sulfate 1 PUFF HFA aerosol inhaler 2 puff IH Q4H PRN PRN (Reason: SOB &/or Wheezing ) RF: 0 fluticasone propionate 50 mcg/actuation [place],Suspension 1 spray INTRANASAL BID RF: 0 amlodipine 2.5 mg tablet 10 mg PO DAILY RF: 0 metoprolol succinate 25 mg tablet extended release 24 hr 50 mg PO DAILY RF: 0 potassium chloride [K-Tab] 20 mEq tablet extended release 40 meq PO DAILY RF: 0 dicyclomine 10 MG capsule 20 mg PO TIDAC RF: 0 lisinopril 20 MG tablet 10 mg PO QHS Qty: 0 RF: 0 hydrocodone-acetaminophen 5-325 mg tablet 2 tab PO Q6H PRN PRN (Reason: Pain) RF: 0 nitrofurantoin macrocrystal 100 mg capsule 100 mg PO Q12H Qty: 10 RF: 0 hydrocodone-acetaminophen 5-325 mg tablet 1 tab PO Q6H PRN (Reason: pain) 3 Days Qty: 12 RF: 0 tiotropium bromide 2.5 mcg/actuation mist 2 puff INHALATION DAILY Qty: 4 RF: 3 montelukast 10 mg tablet 10 mg PO QHS Qty: 30 RF: 5 Primary Care Provider: Janel Taylor Referrals: Janel Taylor MD [Primary Care Provider] - Activity Restrictions/Additional Instructions: Follow-up with your [facility] orthopedic surgeon as soon as possible. They need to reevaluate your right hip to decide if they need to revise it because it should not be getting dislocated this easily over this many times. Strongly suggest you use the knee immobilizer or you may redislocate your hip. No driving for the next 24 hours due to the conscious sedation and pain medications you received today. Disposition Disposition: Home, Self Care
[2021-05-09] MEDS: Ondansetron 4 MG/2 ML Vial IV (16:41)
[2021-05-09] MEDS: HYDROmorphone 1 MG/ML Syringe IV (16:41)
--- NOTE | 2021-05-09 16:50 | RAD_ITS ---
STUDY: X-RAY - PELVIS AND RIGHT HIP REASON FOR EXAM: Female, 55 years old. dislocated TECHNIQUE: 3 views of the pelvis and hip. COMPARISON: 05/05/2021 FINDINGS: There is a non-specific bowel gas pattern. Normal visualized soft tissue structures. Normal bilateral iliac wings, sacroiliac joints and visualized sacrum. Normal bilateral superior and inferior pubic rami. Normal pubic symphysis. Normal bilateral ischial tuberosities. Status post right hip arthroplasty. Posterior dislocation of the prosthesis.. RAD/HIP, UNI W/ Pelvis 2-3 Views IMPRESSION: Posterior dislocation of the right hip prosthesis. Electronically Signed: Jerome El MD at 17:21 EST ,
[2021-05-09] MEDS: HYDROmorphone 0.5 MG/0.5 ML SYRINGE IV ×2 (17:20→18:23)
--- NOTE | 2021-05-09 17:37 | RAD_ITS ---
STUDY: X-RAY - RIGHT HIP REASON FOR EXAM: Female, 55 years old. Post-reduction TECHNIQUE: Single AP view of the right hip COMPARISON: Earlier same day FINDINGS: Please see the impression. RAD/Hip 1 view with Pelvis IMPRESSION: Status post right hip revision orthoplasty. Persistent posterior dislocation of the femoral component in relation to the acetabular component. Electronically Signed: Rcik Collins MD at 18:33 EST ,
[2021-05-09] MEDS: Propofol 200 MG/20 ML Vial 60 MG IV BOLUS (18:56)
--- NOTE | 2021-05-09 19:05 | RAD_ITS ---
STUDY: X-RAY - PELVIS AND RIGHT HIP REASON FOR EXAM: Female, 55 years old. post attempted reduction #2 TECHNIQUE: Single AP view of the right hip COMPARISON: Earlier same day FINDINGS: Please see the impression. RAD/Hip 1 view with Pelvis IMPRESSION: Status post right hip revision orthoplasty. Persistent posterior dislocation of the femoral component in relation to the acetabular component. Electronically Signed: Rick Collins MD at 19:37 EST ,
--- NOTE | 2021-05-09 20:05 | ED.RN ---
patient required repeat sedation with Dr. Talamantes in the room to attempt to reduce hip again
--- NOTE | 2021-05-09 20:14 | RAD_ITS ---
STUDY: X-RAY - RIGHT HIP REASON FOR EXAM: Female, 55 years old. Post reduction TECHNIQUE: 2 views of the right hip. COMPARISON: 1 hour earlier RAD/Hip Min 2 Views (Portable) IMPRESSION: Femoral head component now appears seated in the acetabular component, compatible with successful reduction of the right hip arthroplasty. Electronically Signed: Tom Newton MD at 20:59 EST ,
--- NOTE | 2021-05-09 20:14 | CONS.ORTHO ---
HPI Consult Data Date of Consult: 05/09/21 HPI Narrative HPI Narrative: TALAT HAN, is a 55 F who presents To [facility] emergency department with yet another posterior dislocation of her right total hip arthroplasty. She has had numerous dislocations in the past with the last one being 05/05/2021 where she was successfully reduced at this institution and placed in a knee immobilizer. She states she twisted her right leg today and noted a clunk and immediate pain in her right hip. She was not wearing the knee immobilizer as she says that it was slipping down her leg. Patient had a right total hip arthroplasty performed approximately 7 years ago at [facility]. She reports intraoperative fracture at that time, only the single surgery on the right hip. She has had instability issues since approximately 1 week status post her index procedure. Denies any numbness or tingling. Denies fevers, chills, nausea vomiting, chest pain or shortness of breath. Patient is scheduled to see my partner Dr. Yung in the coming weeks regarding her right hip instability and possible revision. [facility] Medical History Anemia Asthma Benign essential hypertension Bleeding tendency Chest pain Chronic cough Chronic narcotic use COPD (chronic obstructive pulmonary disease) Current use of insulin Delayed surgical wound healing Diabetes Emphysema of lung Gastroesophageal reflux disease High cholesterol Hip osteoarthritis History of pulmonary embolism History of stress test Hypertension Irregular heart beat Irritable bowel Morbid obesity Morbid obesity with BMI of 45.0-49.9, adult Myocardial infarct On home oxygen therapy RACHEL (obstructive sleep apnea) Pancreatitis Peptic ulcer Pulmonary hypertension Schizoaffective disorder Schizophrenia Sleep apnea Smoker Spinal stenosis of lumbar region at multiple levels Stage 2 moderate COPD by GOLD classification Thyroid nodule Tobacco abuse Ulcer Vitamin D deficiency Home Medications atorvastatin 80 mg PO QHS 08/22/15 [History Last Taken 03/15/21] nitroglycerin 0.4 mg SL PRN PRN 11/08/16 [History Last Taken 11/01/17 0.4 MG] pregabalin 75 mg PO TID 03/08/18 [History Last Taken 03/15/21] risperidone 4 mg PO QHS 03/08/18 [History Last Taken 03/15/21] tizanidine 6 mg PO TID PRN PRN 03/08/18 [History Last Taken 12/18/19 14:37] trazodone 200 mg PO QHS PRN 03/08/18 [History Last Taken 03/15/21] furosemide 20 mg PO DAILY 11/20/18 [History Last Taken 03/15/21] mirabegron 25 mg PO DAILY 11/20/18 [History Last Taken 03/15/21] apixaban 5 mg PO BID 05/02/19 [History Last Taken 03/15/21] buspirone 30 mg tablet 30 mg PO BID tab 06/27/19 [History Last Taken 03/15/21] sucralfate 1 gram tablet 1 g PO QACHS 06/27/19 [History Last Taken 03/15/21] tiotropium bromide 2.5 mcg/actuation mist for inhalation 2 puff INHALATION DAILY #4 g 09/30/19 [Rx Last Taken 03/15/21] montelukast 10 mg tablet 10 mg PO QHS #30 tab 10/30/19 [Rx Last Taken 03/15/21] clopidogrel 75 mg PO DAILY 07/31/20 [History Last Taken 03/15/21] Advair HFA 2 puff INHALATION Q4H PRN PRN 11/14/20 [History Last Taken 03/15/21] albuterol sulfate 2 puff IH Q4H PRN PRN 11/14/20 [History Last Taken Unknown] amlodipine 10 mg PO DAILY 11/14/20 [History Last Taken 03/15/21] escitalopram oxalate 20 mg PO DAILY 11/14/20 [History Last Taken 03/15/21] fluticasone propionate 1 spray INTRANASAL BID 11/14/20 [History Last Taken 03/15/21] metoprolol succinate 50 mg PO DAILY 11/14/20 [History Last Taken 03/15/21] promethazine 25 mg PO BID PRN PRN 11/14/20 [History Last Taken Unknown] potassium chloride [K-Tab] 40 meq PO DAILY 01/13/21 [History Last Taken 03/15/21] dicyclomine 20 mg PO TIDAC 01/14/21 [History Last Taken 03/15/21] lisinopril 10 mg PO QHS #0 tab 01/19/21 [Rx Last Taken 03/15/21] hydrocodone-acetaminophen 2 tab PO Q6H PRN PRN 03/16/21 [History Last Taken Unknown] nitrofurantoin macrocrystal 100 mg PO Q12H #10 cap 03/18/21 [Rx Last Taken Unknown] hydrocodone-acetaminophen 1 tab PO Q6H PRN 3 Days #12 tab 05/05/21 [Rx Last Taken Unknown] Allergy/AdvReac Type Severity Reaction Status Date / Time amoxicillin Allergy Itching Verified 05/05/21 10:11 erythromycin base Allergy Unknown Verified 05/05/21 10:11 methadone Allergy Itching Verified 05/05/21 10:11 metolazone Allergy Unknown Verified 05/05/21 10:11 Penicillins Allergy Hives Verified 05/05/21 10:11 Sulfa (Sulfonamide Allergy Hives Verified 05/05/21 10:11 Antibiotics) clarithromycin [From Biaxin] AdvReac Nausea Verified 05/05/21 10:11 ibuprofen AdvReac 3 BLEEDING Verified 05/05/21 10:11 ULCERS morphine AdvReac HEADACHE Verified 05/05/21 10:11 oxycodone [From Percocet] AdvReac Itching Verified 05/05/21 10:11 Family History Mother Heart disease Cancer ovarian Father Hypertension Arthritis Hyperlipemia Grandmother Breast cancer Heart disease Grandfather Heart disease Surgical History H/O cardiac catheterization H/O heart artery stent History of appendectomy history of carpal tunnel release left wrist History of carpal tunnel surgery of left wrist History of cholecystectomy History of gastric bypass History of PTCA History of right ankle surgery history of right hip surgery History of tonsillectomy Social History household members: none Smoking Status: Current every day smoker tobacco type: cigarettes Tobacco: How many years used: 39 alcohol intake: never substance use type: does not use caffeine: No what type of physical activity do you participate in: none ROS ROS Narrative 10 point review of systems obtained, negative unless otherwise noted in HPI. Vital Signs Vital Signs Vital Signs: 05/09/21 16:12 05/09/21 17:24 05/09/21 17:30 Temperature 98.9 F Temperature Source Oral Pulse Rate 109 H 104 H 126 H Pulse Rate [2] Pulse Rate [3] Pulse Rate [4] Pulse Rate [5] Pulse Rate [6] Respiratory Rate 22 H 14 16 Respiratory Rate [2] Respiratory Rate [3] Respiratory Rate [4] Respiratory Rate [5] Respiratory Rate [6] Blood Pressure 176/89 H 175/125 H 196/124 H Blood Pressure [2] Blood Pressure [3] Blood Pressure [4] Blood Pressure [5] Blood Pressure [6] Blood Pressure Mean 118 Pulse Ox 99 100 100 Oxygen Delivery Method Room Air Nasal Cannula Nasal Cannula Oxygen Delivery Method [2] Oxygen Delivery Method [3] Oxygen Delivery Method [5] Oxygen Delivery Method [6] Oxygen Flow Rate (L/min) 2 Oxygen Flow Rate (L/min) [2] Oxygen Flow Rate (L/min) [3] Oxygen Flow Rate (L/min) [6] 05/09/21 17:31 05/09/21 17:35 05/09/21 17:40 Temperature Temperature Source Pulse Rate 107 H 111 H Pulse Rate [2] 94 Pulse Rate [3] Pulse Rate [4] Pulse Rate [5] Pulse Rate [6] Respiratory Rate 17 14 Respiratory Rate [2] 13 Respiratory Rate [3] Respiratory Rate [4] Respiratory Rate [5] Respiratory Rate [6] Blood Pressure 179/101 H 177/103 H Blood Pressure [2] 118/112 H Blood Pressure [3] Blood Pressure [4] Blood Pressure [5] Blood Pressure [6] Blood Pressure Mean Pulse Ox 96 97 Oxygen Delivery Method Room Air Room Air Oxygen Delivery Method [2] Nasal Cannula Oxygen Delivery Method [3] Oxygen Delivery Method [5] Oxygen Delivery Method [6] Oxygen Flow Rate (L/min) Oxygen Flow Rate (L/min) [2] 15 Oxygen Flow Rate (L/min) [3] Oxygen Flow Rate (L/min) [6] 05/09/21 18:50 05/09/21 18:54 05/09/21 19:05 Temperature Temperature Source Pulse Rate 108 H 121 H Pulse Rate [2] Pulse Rate [3] 110 H Pulse Rate [4] 115 H Pulse Rate [5] Pulse Rate [6] Respiratory Rate 12 16 Respiratory Rate [2] Respiratory Rate [3] 15 Respiratory Rate [4] 14 Respiratory Rate [5] Respiratory Rate [6] Blood Pressure 194/98 H 193/109 H Blood Pressure [2] Blood Pressure [3] 189/142 H Blood Pressure [4] 163/130 H Blood Pressure [5] Blood Pressure [6] Blood Pressure Mean Pulse Ox 96 91 Oxygen Delivery Method Nasal Cannula Room Air Oxygen Delivery Method [2] Oxygen Delivery Method [3] Nasal Cannula Oxygen Delivery Method [5] Oxygen Delivery Method [6] Oxygen Flow Rate (L/min) 2 Oxygen Flow Rate (L/min) [2] Oxygen Flow Rate (L/min) [3] 5 Oxygen Flow Rate (L/min) [6] 05/09/21 19:10 05/09/21 19:15 05/09/21 19:59 Temperature Temperature Source Pulse Rate 122 H 114 H 110 H Pulse Rate [2] Pulse Rate [3] Pulse Rate [4] Pulse Rate [5] Pulse Rate [6] Respiratory Rate 14 25 H 13 Respiratory Rate [2] Respiratory Rate [3] Respiratory Rate [4] Respiratory Rate [5] Respiratory Rate [6] Blood Pressure 163/94 H 153/102 H 204/105 H Blood Pressure [2] Blood Pressure [3] Blood Pressure [4] Blood Pressure [5] Blood Pressure [6] Blood Pressure Mean Pulse Ox 92 96 95 Oxygen Delivery Method Room Air Room Air Room Air Oxygen Delivery Method [2] Oxygen Delivery Method [3] Oxygen Delivery Method [5] Oxygen Delivery Method [6] Oxygen Flow Rate (L/min) Oxygen Flow Rate (L/min) [2] Oxygen Flow Rate (L/min) [3] Oxygen Flow Rate (L/min) [6] 05/09/21 20:00 05/09/21 20:06 05/09/21 20:11 Temperature Temperature Source Pulse Rate 102 H 132 H Pulse Rate [2] Pulse Rate [3] Pulse Rate [4] Pulse Rate [5] 105 H Pulse Rate [6] 103 H Respiratory Rate 18 13 Respiratory Rate [2] Respiratory Rate [3] Respiratory Rate [4] Respiratory Rate [5] 12 Respiratory Rate [6] 12 Blood Pressure 162/94 H 192/99 H Blood Pressure [2] Blood Pressure [3] Blood Pressure [4] Blood Pressure [5] 191/134 H Blood Pressure [6] 162/94 H Blood Pressure Mean Pulse Ox 100 98 Oxygen Delivery Method Nasal Cannula Room Air Oxygen Delivery Method [2] Oxygen Delivery Method [3] Oxygen Delivery Method [5] Room Air Oxygen Delivery Method [6] Nasal Cannula Oxygen Flow Rate (L/min) 6 Oxygen Flow Rate (L/min) [2] Oxygen Flow Rate (L/min) [3] Oxygen Flow Rate (L/min) [6] 6 Weight Weight: 218 lb 0.595 oz Body Mass Index (BMI) 38.6 Physical Exam Narrative General -A&Ox3, NAD, appears stated age. Vital signs stable, afebrile. Respiratory -normal work of breathing, no intercostal retractions. CV -pulses regular, brisk capillary refill ?4 limbs. Abdomen-soft, nontender, nondistended. No guarding, rigidity, rebound tenderness. Musculoskeletal/neurologic -right lower extremity-sensation intact throughout. Right lower extremity is shortened, internally rotated, adducted. Expansile lateral right hip incision is noted and well-healed without erythema or drainage. DF, PF, EHL intact. Palpable DP pulse brisk capillary refill. Radiology Impression Hip/Pelvis X-Ray 05/09/21 16:50 IMPRESSION: Posterior dislocation of the right hip prosthesis. Electronically Signed: Jerome El MD at 17:21 EST , Hip/Pelvis X-Ray 05/09/21 17:37 IMPRESSION: Status post right hip revision orthoplasty. Persistent posterior dislocation of the femoral component in relation to the acetabular component. Electronically Signed: Rick Collins MD at 18:33 EST , Hip/Pelvis X-Ray 05/09/21 19:05 IMPRESSION: Status post right hip revision orthoplasty. Persistent posterior dislocation of the femoral component in relation to the acetabular component. Electronically Signed: Rick Collins MD at 19:37 EST , Assessment & Plan Assessment/Plan (1) Dislocation of hip, right, closed: PLAN: Closed reduction attempted by Dr. Feng, emergency room physician twice. I was consulted from the emergency department for my assistance. Patient was seen and evaluated by myself. She was neurovascularly intact. I recommended repeat closed reduction in emergency department of the right hip. The risk, benefits, alternatives to procedure reviewed with the patient at length and she agreed to proceed. Procedure note: Preprocedure diagnosis: Right total hip arthroplasty posterior dislocation Post procedure diagnosis: Right total hip arthroplasty posterior dislocation Procedure: Closed reduction right hip under conscious sedation EBL: None Urine output: None Complications: None apparent Preoperative indications: See above. Description of procedure: Timeout was performed confirming the side, site, operation to be performed. No concerns were voiced and elected proceed. Consultation was administered by Dr. Feng. After adequate anesthesia, a closed reduction maneuver was performed with flexion of the right hip, internal rotation, axial traction external rotation and abduction. An appreciable clunk was noted. Patient was placed in a right knee immobilizer. Leg lengths were appropriate. Postreduction x-rays revealed a concentrically reduced right total hip arthroplasty. Anesthesia was reversed and patient was awakened safely. Patient was neurovascular intact status post reduction. Post procedure plan: Maintain knee immobilizer at all times. No flexing the hip greater than 70 degrees. Follow-up as previously scheduled with Dr. Yung. Weightbearing as tolerated right lower extremity with immobilizer on.
[2021-05-09] MEDS: Propofol 200 MG/20 ML Vial 50 MG IV BOLUS (20:16)
--- NOTE | 2021-05-09 20:58 | ED.RN ---
PT NNON COMPLIANT WITH KNEE IMMOBILIZED. PT LEFT BEFORE DISCHARGE PAPERWORK WAS PRINTED. PT ENCOURAGED TO WAIT FOR DISCHARGE PAPERWORK, PT DECLINED.
--- NOTE | 2021-05-09 21:08 | ED.RN ---
patient out in the [address] walking. patient advised that she needs to get back in the room and she needs her knee immobilizer back on other noel she will risk re dislocating her hip. patient states she is aware and doesnt care her ride is here. advised patient of risks. and she was given a wheel chair at this time and assisted to her ride. Dr. lange made aware
== END 2021-05-09 21:12 | disposition home or self-care (01) ==
PROVIDERS: Emergency Provider Emergency Medicine; PCP Family Medicine; Visit Provider Emergency Medicine
DX: T84.020A Dislocation of internal right hip prosthesis, initial encounter (principal); F25.9 Schizoaffective disorder, unspecified; J44.9 Chronic obstructive pulmonary disease, unspecified; E66.01 Morbid (severe) obesity due to excess calories; E11.9 Type 2 diabetes mellitus without complications; Z79.4 Long term (current) use of insulin; Y83.1 Surgical operation with implant of artificial internal device as the cause of abnormal reaction of the patient, or of later complication, without mention of misadventure at the time of the procedure; I10 Essential (primary) hypertension; E78.00 Pure hypercholesterolemia, unspecified; G47.33 Obstructive sleep apnea (adult) (pediatric); F17.210 Nicotine dependence, cigarettes, uncomplicated; Z79.01 Long term (current) use of anticoagulants; Z79.02 Long term (current) use of antithrombotics/antiplatelets; Z79.899 Other long term (current) drug therapy; Z96.641 Presence of right artificial hip joint; Z99.81 Dependence on supplemental oxygen
CPT/HCPCS: 27265; 73501; 73502; 96374; 96375; 96376; 99285; J7030; A4216; J2405

== ENCOUNTER 2021-05-21 04:47 | Observation (INO) | payer MEDICARE, MEDICAID, SELFPAY ==
[2021-05-21] VITALS (19 sets, daily range): BP systolic 71–130; BP diastolic 42–87; PULSE 83–116; RESP 13–20; TEMP 36.3–37; O2SAT 92–100; BMI 37.6; BMI 36.8
--- NOTE | 2021-05-21 05:10 | RAD_ITS ---
STUDY: X-RAY - PELVIS AND RIGHT HIP REASON FOR EXAM: Dislocation of right hip arthroplasty. TECHNIQUE: 2 views of the pelvis and hip. COMPARISON: Radiographs 05/09/2021. FINDINGS: There is vascular calcification. Normal bilateral iliac wings, sacroiliac joints and visualized sacrum. Normal bilateral superior and inferior pubic rami. Normal pubic symphysis. Normal bilateral ischial tuberosities. There is a right hip arthroplasty with posterior dislocation. RAD/HIP, UNI W/ Pelvis 2-3 Views IMPRESSION: Posterior dislocation of right hip arthroplasty. Electronically Signed: Curtis Srivastava MD at 7:26 EDT ,
--- NOTE | 2021-05-21 05:21 | EX.ED.DYSGE1 ---
HPI History of Present Illness Chief Complaint: Lower Extremity Injury Narrative Narrative: Patient is a 55-year-old female with past medical history of hip replacement. She states that it can dislocate very easily. She states this morning around 4 AM she was going into the room with her dogs when she bent over and felt like the hip became displaced once again and fell. She states that she does take blood thinners but she denies striking her head or any loss of consciousness. She states she was not on the ground for very long as she was able to get a hold of EMS. She states she cannot ambulate because of the pain and concern for hip dislocation and therefore was brought into the hospital for repeat evaluation. [facility] Medical History Anemia Asthma Benign essential hypertension Bleeding tendency Chest pain Chronic cough Chronic narcotic use COPD (chronic obstructive pulmonary disease) Current use of insulin Delayed surgical wound healing Diabetes Emphysema of lung Gastroesophageal reflux disease High cholesterol Hip osteoarthritis History of pulmonary embolism History of stress test Hypertension Irregular heart beat Irritable bowel Morbid obesity Morbid obesity with BMI of 45.0-49.9, adult Myocardial infarct On home oxygen therapy RACHEL (obstructive sleep apnea) Pancreatitis Peptic ulcer Pulmonary hypertension Schizoaffective disorder Schizophrenia Sleep apnea Smoker Spinal stenosis of lumbar region at multiple levels Stage 2 moderate COPD by GOLD classification Thyroid nodule Tobacco abuse Ulcer Vitamin D deficiency Home Medications atorvastatin 80 mg PO QHS 08/22/15 [History Last Taken 03/15/21] nitroglycerin 0.4 mg SL PRN PRN 11/08/16 [History Last Taken 11/01/17 0.4 MG] pregabalin 75 mg PO TID 03/08/18 [History Last Taken 03/15/21] risperidone 4 mg PO QHS 03/08/18 [History Last Taken 03/15/21] tizanidine 6 mg PO TID PRN PRN 03/08/18 [History Last Taken 12/18/19 14:37] trazodone 200 mg PO QHS PRN 03/08/18 [History Last Taken 03/15/21] furosemide 20 mg PO DAILY 11/20/18 [History Last Taken 03/15/21] mirabegron 25 mg PO DAILY 11/20/18 [History Last Taken 03/15/21] apixaban 5 mg PO BID 05/02/19 [History Last Taken 03/15/21] buspirone 30 mg tablet 30 mg PO BID tab 06/27/19 [History Last Taken 03/15/21] sucralfate 1 gram tablet 1 g PO QACHS 06/27/19 [History Last Taken 03/15/21] tiotropium bromide 2.5 mcg/actuation mist for inhalation 2 puff INHALATION DAILY #4 g 09/30/19 [Rx Last Taken 03/15/21] montelukast 10 mg tablet 10 mg PO QHS #30 tab 10/30/19 [Rx Last Taken 03/15/21] clopidogrel 75 mg PO DAILY 07/31/20 [History Last Taken 03/15/21] Advair HFA 2 puff INHALATION Q4H PRN PRN 11/14/20 [History Last Taken 03/15/21] albuterol sulfate 2 puff IH Q4H PRN PRN 11/14/20 [History Last Taken Unknown] amlodipine 10 mg PO DAILY 11/14/20 [History Last Taken 03/15/21] escitalopram oxalate 20 mg PO DAILY 11/14/20 [History Last Taken 03/15/21] fluticasone propionate 1 spray INTRANASAL BID 11/14/20 [History Last Taken 03/15/21] metoprolol succinate 50 mg PO DAILY 11/14/20 [History Last Taken 03/15/21] promethazine 25 mg PO BID PRN PRN 11/14/20 [History Last Taken Unknown] potassium chloride [K-Tab] 40 meq PO DAILY 01/13/21 [History Last Taken 03/15/21] dicyclomine 20 mg PO TIDAC 01/14/21 [History Last Taken 03/15/21] lisinopril 10 mg PO QHS #0 tab 01/19/21 [Rx Last Taken 03/15/21] hydrocodone-acetaminophen 2 tab PO Q6H PRN PRN 03/16/21 [History Last Taken Unknown] nitrofurantoin macrocrystal 100 mg PO Q12H #10 cap 03/18/21 [Rx Last Taken Unknown] hydrocodone-acetaminophen 1 tab PO Q6H PRN 3 Days #12 tab 05/05/21 [Rx Last Taken Unknown] Allergy/AdvReac Type Severity Reaction Status Date / Time amoxicillin Allergy Itching Verified 05/21/21 04:54 erythromycin base Allergy Unknown Verified 05/21/21 04:54 methadone Allergy Itching Verified 05/21/21 04:54 metolazone Allergy Unknown Verified 05/21/21 04:54 Penicillins Allergy Hives Verified 05/21/21 04:54 Sulfa (Sulfonamide Allergy Hives Verified 05/21/21 04:54 Antibiotics) clarithromycin [From Biaxin] AdvReac Nausea Verified 05/21/21 04:54 ibuprofen AdvReac 3 BLEEDING Verified 05/21/21 04:54 ULCERS morphine AdvReac HEADACHE Verified 05/21/21 04:54 oxycodone [From Percocet] AdvReac Itching Verified 05/21/21 04:54 Family History Mother Heart disease Cancer ovarian Father Hypertension Arthritis Hyperlipemia Grandmother Breast cancer Heart disease Grandfather Heart disease Surgical History H/O cardiac catheterization H/O heart artery stent History of appendectomy history of carpal tunnel release left wrist History of carpal tunnel surgery of left wrist History of cholecystectomy History of gastric bypass History of PTCA History of right ankle surgery history of right hip surgery History of tonsillectomy Social History household members: none Smoking Status: Current every day smoker tobacco type: cigarettes Tobacco: How many years used: 39 alcohol intake: never substance use type: does not use caffeine: No what type of physical activity do you participate in: none ROS ROS ED Constitutional Constitutional ED: Denies chills or fever(s) ENT ENT ED: Denies sore throat Cardiovascular Cardiovascular: Denies chest pain Respiratory/Chest Respiratory/Chest: Denies cough or dyspnea Gastrointestinal Gastrointestinal: Denies abdominal pain, diarrhea, nausea or vomiting Genitourinary Genitourinary ED: Denies dysuria Musculoskeletal Musculoskeletal: Reports arthralgias and other Details: Positive right hip pain ; Denies back pain, myalgias or neck pain Integumentary Denies rash Neurologic Neurologic: Denies headache(s) Hematologic/Lymphatic Hematologic/Lymphatic: Reports easy bleeding and easy bruising EXAM Physical Exam Const Vital Signs: 05/21/21 04:48 05/21/21 07:24 05/21/21 07:44 Temperature 97.4 F L 98 F 98.1 F Temperature Source Temporal Pulse Rate 100 110 H 110 H Pulse Rate [1] Pulse Rate [2] Pulse Rate [3] Respiratory Rate 16 16 13 Respiratory Rate [1] Respiratory Rate [2] Respiratory Rate [3] Blood Pressure 107/42 L 127/74 H 113/52 L Blood Pressure [1] Blood Pressure [2] Blood Pressure [3] Blood Pressure Mean 63 Pulse Ox 97 100 97 Oxygen Delivery Method Room Air Non-Rebreather Oxygen Delivery Method [1] Oxygen Delivery Method [2] Oxygen Delivery Method [3] Oxygen Flow Rate (L/min) Oxygen Flow Rate (L/min) [1] Oxygen Flow Rate (L/min) [2] Oxygen Flow Rate (L/min) [3] 05/21/21 07:46 05/21/21 08:01 05/21/21 08:06 Temperature Temperature Source Pulse Rate Pulse Rate [1] 112 H Pulse Rate [2] 116 H Pulse Rate [3] 113 H Respiratory Rate Respiratory Rate [1] 14 Respiratory Rate [2] 16 Respiratory Rate [3] 14 Blood Pressure Blood Pressure [1] 122/87 H Blood Pressure [2] 122/87 H Blood Pressure [3] 91/48 L Blood Pressure Mean Pulse Ox Oxygen Delivery Method Nasal Cannula Nasal Cannula Oxygen Delivery Method [1] Nasal Cannula Oxygen Delivery Method [2] Nasal Cannula Oxygen Delivery Method [3] Nasal Cannula Oxygen Flow Rate (L/min) 4 3 Oxygen Flow Rate (L/min) [1] 4 Oxygen Flow Rate (L/min) [2] 4 Oxygen Flow Rate (L/min) [3] 4 05/21/21 08:11 05/21/21 08:24 Temperature Temperature Source Pulse Rate Pulse Rate [1] Pulse Rate [2] Pulse Rate [3] Respiratory Rate Respiratory Rate [1] Respiratory Rate [2] Respiratory Rate [3] Blood Pressure 78/53 L Blood Pressure [1] Blood Pressure [2] Blood Pressure [3] Blood Pressure Mean 61 Pulse Ox Oxygen Delivery Method Nasal Cannula Oxygen Delivery Method [1] Oxygen Delivery Method [2] Oxygen Delivery Method [3] Oxygen Flow Rate (L/min) 97 Oxygen Flow Rate (L/min) [1] Oxygen Flow Rate (L/min) [2] Oxygen Flow Rate (L/min) [3] Positive well nourished and well developed General Appearance ED: well developed HEENT HEENT Narrative: No signs of depressed or basilar skull fracture Eyes PERRL and EOMs intact bilaterally Neck supple Neck Narrative: No bony deformity or step-off of the cervical spine no midline pain on palpation Chest Wall palpation of chest normal Resp normal respiratory effort Resp Narrative: Breath sounds are diminished throughout with diffuse expiratory wheeze consistent with history of smoking Cardio regular rate and regular rhythm GI normal to inspection, nondistended, normoactive bowel sounds, non-tender, non-distended and no masses Auscultation: normoactive bowel sounds Palpation: soft Extremity Extremity Narrative: Pelvis is stable. However there does seem to be shortening with slight external rotation of the right hip. Active and passive range of motion is severely limited secondary to pain. Neuro oriented x3 and CN's II-XII intact bilaterally Sensorium / Orientation: alert Psych mental status grossly normal Skin no rashes or lesions noted Skin Narrative: No overlying abrasions or ecchymosis noted MDM MDM MDM Narrative Medical decision making narrative: Patient presented to the ER with spontaneous dislocation of her right hip. She does take a blood thinner but denies striking her head or loss of consciousness and has no signs of head trauma on exam so do not feel there is a need for head CT. An x-ray was obtained which confirmed a posterior hip dislocation. Patient underwent conscious sedation as documented below. The hip was reduced and repeat x-rays were obtained. This confirmed the hip is in the proper place. At this time patient will be watched in the ER because of of the sedation once this wears off she should be safe for discharge. Patient was advised to follow-up with orthopedics to discuss need for revision as she has had multiple dislocations in the past. Patient underwent conscious sedation. She was given a total of 70 mg of propofol. During this time she underwent traction of the right lower leg and there was spontaneous reduction of the hip dislocation. Postreduction x-rays were obtained which confirmed this. Patient tolerated the procedure well without complication. Total sedation time was approximately 10 to 15 minutes. Radiography Diagnostic Testing: Clinical Impression(s) from Imaging Studies Hip/Pelvis X-Ray 05/21/21 05:10 IMPRESSION: Posterior dislocation of right hip arthroplasty. Electronically Signed: Curtis Srivastava MD at 7:26 EDT , Discharge Plan Triage Chief Complaint: Lower Extremity Injury ED Provider: Stevo Heath Dx/Rx/DC Orders Clinical Impression: Dislocation of hip, right, closed Instructions: ED Hip Replace Dislocation Reduc Prescriptions: No Action sucralfate 1 gram tablet 1 g PO QACHS RF: 0 atorvastatin 80 MG tablet 80 mg PO QHS RF: 0 nitroglycerin 0.4 MG tablet, sublingual 0.4 mg SL PRN PRN (Reason: Cardiac/Chest Pain) RF: 0 risperidone 4 mg tablet 4 mg PO QHS RF: 0 trazodone 100 MG tablet 200 mg PO QHS PRN (Reason: Insomnia) RF: 0 pregabalin 75 MG capsule 75 mg PO TID RF: 0 tizanidine 4 MG tablet 6 mg PO TID PRN PRN (Reason: Spasms) RF: 0 buspirone 30 mg tablet 30 mg PO BID RF: 0 furosemide 20 MG tablet 20 mg PO DAILY RF: 0 Hold Instructions: Resume on 01/22/21. mirabegron 25 MG tablet extended release 24 hr 25 mg PO DAILY RF: 0 apixaban 5 MG tablet 5 mg PO BID RF: 0 clopidogrel 75 mg tablet 75 mg PO DAILY RF: 0 promethazine 25 mg Tablet 25 mg PO BID PRN PRN (Reason: Nausea) RF: 0 escitalopram oxalate 20 mg Tablet 20 mg PO DAILY RF: 0 Advair HFA 230-21 mcg/actuation Hfa Aerosol Inhaler 2 puff INHALATION Q4H PRN PRN (Reason: sob/wheezing) RF: 0 albuterol sulfate 1 PUFF HFA aerosol inhaler 2 puff IH Q4H PRN PRN (Reason: SOB &/or Wheezing ) RF: 0 fluticasone propionate 50 mcg/actuation [place],Suspension 1 spray INTRANASAL BID RF: 0 amlodipine 2.5 mg tablet 10 mg PO DAILY RF: 0 metoprolol succinate 25 mg tablet extended release 24 hr 50 mg PO DAILY RF: 0 potassium chloride [K-Tab] 20 mEq tablet extended release 40 meq PO DAILY RF: 0 dicyclomine 10 MG capsule 20 mg PO TIDAC RF: 0 lisinopril 20 MG tablet 10 mg PO QHS Qty: 0 RF: 0 hydrocodone-acetaminophen 5-325 mg tablet 2 tab PO Q6H PRN PRN (Reason: Pain) RF: 0 nitrofurantoin macrocrystal 100 mg capsule 100 mg PO Q12H Qty: 10 RF: 0 hydrocodone-acetaminophen 5-325 mg tablet 1 tab PO Q6H PRN (Reason: pain) 3 Days Qty: 12 RF: 0 tiotropium bromide 2.5 mcg/actuation mist 2 puff INHALATION DAILY Qty: 4 RF: 3 montelukast 10 mg tablet 10 mg PO QHS Qty: 30 RF: 5 Primary Care Provider: Janel Taylor Referrals: Janel Taylor MD [Primary Care Provider] - Pop Yung MD [STAFF PHYSICIAN] - 1-2 Weeks Activity Restrictions/Additional Instructions: Please follow-up with orthopedics to discuss possible need for revision secondary to your recurrent dislocations and return to the ER should you have any further concerns Disposition Disposition: Home, Self Care
[2021-05-21] MEDS: 0.9% Normal Saline 1,000 ML 999 ML IV ×2 (05:34→08:22)
[2021-05-21] MEDS: fentaNYL 100 MCG/2 ML Ampul 50 MCG IV ×2 (06:24→07:31)
[2021-05-21] MEDS: Ondansetron 4 MG/2 ML Vial IV (06:28)
[2021-05-21] MEDS: Propofol 200 MG/20 ML Vial IV BOLUS (07:36)
--- NOTE | 2021-05-21 08:08 | ED.RN ---
PT WAS DROWSY UPON ARRIVAL D/T TAKING MUSCLE RELAXER AND PAIN MEDS AT 0500 PER PT RECOLLECTION.
--- NOTE | 2021-05-21 08:15 | RAD_ITS ---
STUDY: X-RAY - PELVIS AND RIGHT HIP REASON FOR EXAM: Evaluate reduction of right hip arthroplasty dislocation. TECHNIQUE: A single view of the pelvis and hip. COMPARISON: Earlier radiographs obtained today. FINDINGS: There is reduction of the right hip arthroplasty. RAD/Hip Min 2 Views (Portable) IMPRESSION: Reduction of right hip arthroplasty. Electronically Signed: Curtis Srivastava MD at 8:36 EDT ,
[2021-05-21 14:14] LABS: Absolute Lymphocyte Count 1.14 X10^3/uL (0.83-4.51); Absolute Neutrophil Count 9.7 X10^3/uL (2.0-7.7); Basophil# 0.08 X10^3/uL; Basophil% 0.7 % (0-1); Eosinophils% 0.8 % (0-5); Hematocrit 38.8 % (37-47); Hemoglobin 12.5 g/dL (12.0-15.0); Lymphocyte # 1.14 X10^3/ul (0.83-4.51); Lymphocyte % 9.3 % (19-41); Mean Corp Hgb Conc 32.2 g/dL (32-36); Mean Corpuscular Hgb 27.9 pg (27.0-32.0); Mean Corpuscular Volume 86.6 fL (81-99); Monocyte% 9.8 % (0-10); NRBC Flagged by Analyzer 0 % (0-5); Neutrophil % 78.8 % (47-70); Platelet Count 288 K/mm3 (150-450); RBC Distribution Width CV 17.8 % (11.6-14.6); RBC Distribution Width SD 56.9 fl (35.1-43.9); Red Blood Count 4.48 M/mm3 (4.2-5.4); White Blood Count 12.3 K/mm3 (4.4-11.0)
--- NOTE | 2021-05-21 14:25 | RAD_ITS ---
STUDY: X-RAY CHEST REASON FOR EXAM: Female, 55 years old. sob TECHNIQUE: AP COMPARISON: 03/16/2021 FINDINGS: EKG leads project over the chest. The lungs are clear and expanded. There is no demonstrated pleural abnormality. Normal size heart. Normal mediastinum and alden. Normal visualized pulmonary arteries. There is atherosclerotic calcification of the aortic arch with tortuosity. Normal visualized thoracic spine. Normal visualized ribs, clavicles, and shoulders. There is no demonstrated abnormality of the visualized soft tissue structures of the upper abdomen. RAD/Chest 1 View (Portable) IMPRESSION: Nonacute portable x-ray examination of the chest. Electronically Signed: Nitin Gimenez MD ([place]) at 14:40 EDT ,
[2021-05-21 14:34] LABS: ALB/GLOB Ratio 0.7 RATIO (0.9-2.4); AST(SGOT) 22 U/L (15-37); Alanine Aminotransfer ALT/SGPT 18 U/L (13-56); Albumin, Serum 2.5 g/dL (3.2-5.0); Alkaline Phosphatase 132 U/L (45-117); Anion Gap 3 (5-15); BUN 16 mg/dL (7-18); Calcium,Total 8.8 mg/dL (8.5-10.1); Chloride 108 mmol/L (98-107); Creatinine, Serum 0.84 mg/dL (0.55-1.02); EST Glomerular Filtration Rate 74 mL/min (>60); Est Glom Filt Rate - Afr Amer 90 mL/min (>60); Globulin 3.6 g/dL (2.2-4.2); Glucose 136 mg/dL (74-106); Potassium 4.2 mmol/L (3.5-5.1); Protein, Total 6.1 g/dL (6.4-8.2); Sodium Level 136 mmol/L (136-145)
--- NOTE | 2021-05-21 15:28 | PCM.HP.STD ---
Documented by User: Pelon HO 05/21/21 16:01 HPI - General General Date of Admission: 05/21/21 Date of Service: 05/21/21 Chief Complaint: Hypoxia HPI Narrative TALAT HAN is a 55-year-old female who initially presented to the ED at [facility] on 05/21/2021 with a chief complaint of dislocation of the right hip. Dislocated hip was addressed while in in the ED, however patient was lethargic upon awakening from administration of propofol and began to develop hypoxia while in the ED. Patient does have an oxygen prescription at home for 2 L via nasal cannula, however reports only wearing this at night and patient voices that she would be reluctant to start wearing it full-time. Patient does live at home by herself and seems to have a weak social support network. Past medical history is significant for COPD and history of PE, for which she is anticoagulated on Eliquis. Given patient hypoxia, lethargy and reluctance to be compliant with new oxygen requirements, ED physician requested that patient be placed in observation overnight and sent home tomorrow with updated prescription. [facility] Medical History Anemia Asthma Benign essential hypertension BiPAP (biphasic positive airway pressure) dependence Bleeding tendency Chest pain Chronic cough Chronic narcotic use COPD (chronic obstructive pulmonary disease) Current use of insulin Delayed surgical wound healing Diabetes Emphysema of lung Gastroesophageal reflux disease High cholesterol Hip osteoarthritis History of pulmonary embolism History of stress test Hypertension Irregular heart beat Irritable bowel Morbid obesity Morbid obesity with BMI of 45.0-49.9, adult Myocardial infarct On home oxygen therapy RACHEL (obstructive sleep apnea) Pancreatitis Peptic ulcer Pulmonary hypertension Schizoaffective disorder Schizophrenia Sleep apnea Smoker Spinal stenosis of lumbar region at multiple levels Stage 2 moderate COPD by GOLD classification Thyroid nodule Tobacco abuse Ulcer Vitamin D deficiency Home Medications atorvastatin 80 mg PO QHS 08/22/15 [History Last Taken 03/15/21] pregabalin 75 mg PO TID 03/08/18 [History Last Taken 03/15/21] risperidone 4 mg PO QHS 03/08/18 [History Last Taken 03/15/21] trazodone 200 mg PO QHS PRN 03/08/18 [History Last Taken 03/15/21] furosemide 20 mg PO DAILY 11/20/18 [History Last Taken 03/15/21] mirabegron 25 mg PO DAILY 11/20/18 [History Last Taken 03/15/21] apixaban 5 mg PO BID 05/02/19 [History Last Taken 03/15/21] buspirone 30 mg tablet 30 mg PO BID tab 06/27/19 [History Last Taken 03/15/21] sucralfate 1 gram tablet 1 g PO ACHS 06/27/19 [History Last Taken 03/15/21] tiotropium bromide 2.5 mcg/actuation mist for inhalation 2 puff INHALATION DAILY #4 g 09/30/19 [Rx Last Taken 03/15/21] clopidogrel 75 mg PO DAILY 07/31/20 [History Last Taken 03/15/21] Advair HFA 2 puff INHALATION BID 11/14/20 [History Last Taken 03/15/21] albuterol sulfate 2 puff IH Q4H PRN PRN 11/14/20 [History Last Taken Unknown] escitalopram oxalate 20 mg PO DAILY 11/14/20 [History Last Taken 03/15/21] fluticasone propionate 1 spray INTRANASAL BID 11/14/20 [History Last Taken 03/15/21] promethazine 25 mg PO BID PRN PRN 11/14/20 [History Last Taken Unknown] potassium chloride [K-Tab] 40 meq PO DAILY 01/13/21 [History Last Taken 03/15/21] alendronate 70 mg PO QWEEK 05/21/21 [History Last Taken Unknown] amlodipine 10 mg PO DAILY 05/21/21 [History Last Taken Unknown] baclofen 10 mg PO TID 05/21/21 [History Last Taken Unknown] lamotrigine 150 mg PO DAILY 05/21/21 [History Last Taken Unknown] lisinopril 20 mg PO QHS 05/21/21 [History Last Taken Unknown] metoprolol succinate 50 mg PO DAILY 05/21/21 [History Last Taken Unknown] omeprazole 20 mg PO DAILY 05/21/21 [History Last Taken Unknown] oxycodone-acetaminophen 1 tab PO Q6H PRN 05/21/21 [History Last Taken Unknown] oxycodone-acetaminophen 1 tab PO Q8H PRN 05/21/21 [History Last Taken Unknown] Allergy/AdvReac Type Severity Reaction Status Date / Time amoxicillin Allergy Itching Verified 05/21/21 04:54 erythromycin base Allergy Unknown Verified 05/21/21 04:54 methadone Allergy Itching Verified 05/21/21 04:54 metolazone Allergy Unknown Verified 05/21/21 04:54 Penicillins Allergy Hives Verified 05/21/21 04:54 Sulfa (Sulfonamide Allergy Hives Verified 05/21/21 04:54 Antibiotics) clarithromycin [From Biaxin] AdvReac Nausea Verified 05/21/21 04:54 ibuprofen AdvReac 3 BLEEDING Verified 05/21/21 04:54 ULCERS morphine AdvReac HEADACHE Verified 05/21/21 04:54 oxycodone [From Percocet] AdvReac Itching Verified 05/21/21 04:54 Family History Mother Heart disease Cancer ovarian Father Hypertension Arthritis Hyperlipemia Grandmother Breast cancer Heart disease Grandfather Heart disease Surgical History H/O cardiac catheterization H/O heart artery stent History of appendectomy history of carpal tunnel release left wrist History of carpal tunnel surgery of left wrist History of cholecystectomy History of gastric bypass History of PTCA History of right ankle surgery history of right hip surgery History of tonsillectomy Social History household members: none Smoking Status: Current every day smoker tobacco type: cigarettes Tobacco: How many years used: 39 alcohol intake: never substance use type: does not use caffeine: No what type of physical activity do you participate in: none ROS Constitutional Constitutional: Denies anorexia, change in weight, chills, fatigue, fever(s), malaise, night sweats, weakness or other Eyes Eyes: Denies blurry vision, change in eye color, change in vision, discharge from eye(s), double vision, erythema, eye pain, loss of vision or other ENT HEENT: Denies abnormal hearing, dysphagia, ear pain, epistaxis, headache(s), hearing loss, nasal congestion, nasal discharge, post nasal drip, sinus pressure, sore throat or other Cardiovascular Cardiovascular: Reports dyspnea on exertion; Denies chest pain, claudication, edema, lightheadedness, orthopnea, palpitations, paroxysmal nocturnal dyspnea, rapid heart rate, syncope or other Respiratory/Chest Respiratory/Chest: Reports cough, dyspnea, shortness of breath at rest, shortness of breath with exertion and wheezing; Denies excessive phlegm production, hemoptysis, productive cough or other Gastrointestinal Gastrointestinal: Denies abdominal pain, coffee ground emesis, constipation, diarrhea, dyspepsia, hematemesis, hematochezia, loose stools, melena, nausea, vomiting or other Genitourinary Genitourinary: Denies burning urination, difficulty urinating, dysuria, hematuria, nocturia, urinary frequency, urinary hesitancy, urinary incontinence, urinary urgency or other Musculoskeletal Musculoskeletal: Reports joint pain; Denies arthralgias, back pain, joint stiffness, joint swelling, myalgias, neck pain or other Neurologic Neurologic: Denies abnormal gait, abnormal speech, confusion, disequilibrium, dizziness, focal weakness, headache(s), numbness, paresthesias, seizure-like activity, seizures, syncope, tingling, tremor(s) or other Psychiatric Psychiatric: Denies anxiety, depression, homicidal ideation, suicidal ideation or other Endocrine Endocrinology: Denies change in body appearance, cold intolerance, excessive sweating, heat intolerance, polydipsia, polyuria or other Hematologic/Lymphatic Hematologic/Lymphatic: Denies anemia, easy bleeding, easy bruising, lymphadenopathy or other Allergic/Immunologic Allergic/Immunologic: Denies rhinitis, hives, eczemia, asthma or other Vital Signs Vital Signs Vital Signs: 05/21/21 04:48 05/21/21 07:24 05/21/21 07:44 Temperature 97.4 F L 98 F 98.1 F Temperature Source Temporal Pulse Rate 100 110 H 110 H Pulse Rate [1] Pulse Rate [2] Pulse Rate [3] Respiratory Rate 16 16 13 Respiratory Rate [1] Respiratory Rate [2] Respiratory Rate [3] Blood Pressure 107/42 L 127/74 H 113/52 L Blood Pressure [1] Blood Pressure [2] Blood Pressure [3] Blood Pressure Mean 63 Pulse Ox 97 100 97 Oxygen Delivery Method Room Air Non-Rebreather Oxygen Delivery Method [1] Oxygen Delivery Method [2] Oxygen Delivery Method [3] Oxygen Flow Rate (L/min) Oxygen Flow Rate (L/min) [1] Oxygen Flow Rate (L/min) [2] Oxygen Flow Rate (L/min) [3] 05/21/21 07:46 05/21/21 08:01 05/21/21 08:06 Temperature Temperature Source Pulse Rate Pulse Rate [1] 112 H Pulse Rate [2] 116 H Pulse Rate [3] 113 H Respiratory Rate Respiratory Rate [1] 14 Respiratory Rate [2] 16 Respiratory Rate [3] 14 Blood Pressure Blood Pressure [1] 122/87 H Blood Pressure [2] 122/87 H Blood Pressure [3] 91/48 L Blood Pressure Mean Pulse Ox Oxygen Delivery Method Nasal Cannula Nasal Cannula Oxygen Delivery Method [1] Nasal Cannula Oxygen Delivery Method [2] Nasal Cannula Oxygen Delivery Method [3] Nasal Cannula Oxygen Flow Rate (L/min) 4 3 Oxygen Flow Rate (L/min) [1] 4 Oxygen Flow Rate (L/min) [2] 4 Oxygen Flow Rate (L/min) [3] 4 05/21/21 08:11 05/21/21 08:24 05/21/21 09:19 Temperature Temperature Source Pulse Rate 86 Pulse Rate [1] Pulse Rate [2] Pulse Rate [3] Respiratory Rate Respiratory Rate [1] Respiratory Rate [2] Respiratory Rate [3] Blood Pressure 78/53 L 95/68 Blood Pressure [1] Blood Pressure [2] Blood Pressure [3] Blood Pressure Mean 61 77 Pulse Ox 96 Oxygen Delivery Method Nasal Cannula Nasal Cannula Oxygen Delivery Method [1] Oxygen Delivery Method [2] Oxygen Delivery Method [3] Oxygen Flow Rate (L/min) 3 3 Oxygen Flow Rate (L/min) [1] Oxygen Flow Rate (L/min) [2] Oxygen Flow Rate (L/min) [3] 05/21/21 10:53 05/21/21 12:06 05/21/21 13:49 Temperature Temperature Source Pulse Rate 103 H Pulse Rate [1] Pulse Rate [2] Pulse Rate [3] Respiratory Rate 19 H Respiratory Rate [1] Respiratory Rate [2] Respiratory Rate [3] Blood Pressure 102/69 120/63 Blood Pressure [1] Blood Pressure [2] Blood Pressure [3] Blood Pressure Mean 80 82 Pulse Ox 92 Oxygen Delivery Method Nasal Cannula Oxygen Delivery Method [1] Oxygen Delivery Method [2] Oxygen Delivery Method [3] Oxygen Flow Rate (L/min) 3 Oxygen Flow Rate (L/min) [1] Oxygen Flow Rate (L/min) [2] Oxygen Flow Rate (L/min) [3] 05/21/21 14:01 Temperature Temperature Source Pulse Rate 102 H Pulse Rate [1] Pulse Rate [2] Pulse Rate [3] Respiratory Rate 20 H Respiratory Rate [1] Respiratory Rate [2] Respiratory Rate [3] Blood Pressure 123/86 H Blood Pressure [1] Blood Pressure [2] Blood Pressure [3] Blood Pressure Mean 98 Pulse Ox 96 Oxygen Delivery Method Nasal Cannula Oxygen Delivery Method [1] Oxygen Delivery Method [2] Oxygen Delivery Method [3] Oxygen Flow Rate (L/min) 3 Oxygen Flow Rate (L/min) [1] Oxygen Flow Rate (L/min) [2] Oxygen Flow Rate (L/min) [3] Weight Weight: 212 lb 8.41 oz Body Mass Index (BMI) 37.6 Physical Exam Const alert and oriented x3 General Appearance: cooperative HEENT normocephalic, head/scalp atraumatic and hearing grossly normal bilaterally Eyes PERRL and conjunctivae normal Neck no lymphadenopathy, supple and no JVD Resp Effort and Inspection: tachypneic, respiratory distress and labored Auscultation: rhonchi and wheezes Cardio regular rhythm, no murmurs and no JVD Rate: tachycardic GI normal to inspection, nondistended, normoactive bowel sounds Extremity normal to inspection Skin no rashes or lesions noted Neuro CN's II-XII intact bilaterally Psych affect normal Results Lab / Micro Data Result Diagrams: 05/21/21 14:08 05/21/21 14:08 Labs: Laboratory Results - last 24 hr 05/21/21 14:08: WBC 12.3 H, RBC 4.48, Hgb 12.5, Hct 38.8, MCV 86.6, MCH 27.9, MCHC 32.2, RDW Std Deviation 56.9 H, RDW Coeff of [place] 17.8 H, Plt Count 288, MPV 9.0, Immature Gran % (Auto) 0.600, Neut % (Auto) 78.8 H, Lymph % (Auto) 9.3 L, [place] % (Auto) 9.8, Eos % (Auto) 0.8, Baso % (Auto) 0.7, Absolute Neuts (auto) 9.7 H, Absolute Lymphs (auto) 1.14, Nucleated RBC % 0 05/21/21 14:08: Sodium 136, Potassium 4.2, Chloride 108 H, Carbon Dioxide 25.0, Anion Gap 3 L, BUN 16, Creatinine 0.84, Estim Creat Clear Calc 62.60, Est GFR (MDRD) Af Amer 90, Est GFR (MDRD) Non-Af 74, BUN/Creatinine Ratio 19.0, Glucose 136 H, Calcium 8.8, Total Bilirubin 0.20, AST 22, ALT 18, Alkaline Phosphatase 132 H, Total Protein 6.1 L, Albumin 2.5 L, Globulin 3.6, Albumin/Globulin Ratio 0.7 L Radiology Impression Hip/Pelvis X-Ray 05/21/21 05:10 IMPRESSION: Posterior dislocation of right hip arthroplasty. Electronically Signed: Curtis Srivastava MD at 7:26 EDT , Hip X-Ray 05/21/21 08:15 IMPRESSION: Reduction of right hip arthroplasty. Electronically Signed: Curtis Srivastava MD at 8:36 EDT , Chest X-Ray 05/21/21 14:25 IMPRESSION: Nonacute portable x-ray examination of the chest. Electronically Signed: Nitin Gimenez MD ([place]) at 14:40 EDT , Assessment & Plan Assessment/Plan (1) Hypoxia: PLAN: Patient is a 55-year-old female who is being admitted to [facility] on 05/21/2021 for evaluation management of hypoxia. 1) hypoxia Unclear etiology. Low suspicion for DVT/PE as patient is chronically anticoagulated on Eliquis. Patient does have a history of COPD and does have wheezing on my examination. Chest x-ray is without any acute cardiopulmonary process, lungs do not appear expanded on my evaluation. Plan: Admit to [facility], initiate Solu-Medrol, initiate duo nebs and albuterol, supplemental oxygen as needed, CBC and BMP in a.m. 2) dislocated right hip Addressed while in the ED, as needed pain medications ordered. Home medications still being reconciled at time of this dictation. Will review when reconciliation is complete. CODE STATUS: DNRCC-A, no intubation. DVT prophylaxis - Eliquis Patient seen by Pelon Barboza PA-C, under the supervision of Dr. He. Documented by User: Dr. Justin He, 05/21/21 16:45 HPI - General General Date of Admission: 05/21/21 PFSH Medical History Anemia Asthma Benign essential hypertension BiPAP (biphasic positive airway pressure) dependence Bleeding tendency Chest pain Chronic cough Chronic narcotic use COPD (chronic obstructive pulmonary disease) Current use of insulin Delayed surgical wound healing Diabetes Emphysema of lung Gastroesophageal reflux disease High cholesterol Hip osteoarthritis History of pulmonary embolism History of stress test Hypertension Irregular heart beat Irritable bowel Morbid obesity Morbid obesity with BMI of 45.0-49.9, adult Myocardial infarct On home oxygen therapy RACHEL (obstructive sleep apnea) Pancreatitis Peptic ulcer Pulmonary hypertension Schizoaffective disorder Schizophrenia Sleep apnea Smoker Spinal stenosis of lumbar region at multiple levels Stage 2 moderate COPD by GOLD classification Thyroid nodule Tobacco abuse Ulcer Vitamin D deficiency Home Medications atorvastatin 80 mg PO QHS 08/22/15 [History Last Taken 03/15/21] pregabalin 75 mg PO TID 03/08/18 [History Last Taken 03/15/21] risperidone 4 mg PO QHS 03/08/18 [History Last Taken 03/15/21] trazodone 200 mg PO QHS PRN 03/08/18 [History Last Taken 03/15/21] furosemide 20 mg PO DAILY 11/20/18 [History Last Taken 03/15/21] mirabegron 25 mg PO DAILY 11/20/18 [History Last Taken 03/15/21] apixaban 5 mg PO BID 05/02/19 [History Last Taken 03/15/21] buspirone 30 mg tablet 30 mg PO BID tab 06/27/19 [History Last Taken 03/15/21] sucralfate 1 gram tablet 1 g PO ACHS 06/27/19 [History Last Taken 03/15/21] tiotropium bromide 2.5 mcg/actuation mist for inhalation 2 puff INHALATION DAILY #4 g 09/30/19 [Rx Last Taken 03/15/21] clopidogrel 75 mg PO DAILY 07/31/20 [History Last Taken 03/15/21] Advair HFA 2 puff INHALATION BID 11/14/20 [History Last Taken 03/15/21] albuterol sulfate 2 puff IH Q4H PRN PRN 11/14/20 [History Last Taken Unknown] escitalopram oxalate 20 mg PO DAILY 11/14/20 [History Last Taken 03/15/21] fluticasone propionate 1 spray INTRANASAL BID 11/14/20 [History Last Taken 03/15/21] promethazine 25 mg PO BID PRN PRN 11/14/20 [History Last Taken Unknown] potassium chloride [K-Tab] 40 meq PO DAILY 01/13/21 [History Last Taken 03/15/21] alendronate 70 mg PO QWEEK 05/21/21 [History Last Taken Unknown] amlodipine 10 mg PO DAILY 05/21/21 [History Last Taken Unknown] baclofen 10 mg PO TID 05/21/21 [History Last Taken Unknown] lamotrigine 150 mg PO DAILY 05/21/21 [History Last Taken Unknown] lisinopril 20 mg PO QHS 05/21/21 [History Last Taken Unknown] metoprolol succinate 50 mg PO DAILY 05/21/21 [History Last Taken Unknown] omeprazole 20 mg PO DAILY 05/21/21 [History Last Taken Unknown] oxycodone-acetaminophen 1 tab PO Q6H PRN 05/21/21 [History Last Taken Unknown] oxycodone-acetaminophen 1 tab PO Q8H PRN 05/21/21 [History Last Taken Unknown] Allergy/AdvReac Type Severity Reaction Status Date / Time amoxicillin Allergy Itching Verified 05/21/21 04:54 erythromycin base Allergy Unknown Verified 05/21/21 04:54 methadone Allergy Itching Verified 05/21/21 04:54 metolazone Allergy Unknown Verified 05/21/21 04:54 Penicillins Allergy Hives Verified 05/21/21 04:54 Sulfa (Sulfonamide Allergy Hives Verified 05/21/21 04:54 Antibiotics) clarithromycin [From Biaxin] AdvReac Nausea Verified 05/21/21 04:54 ibuprofen AdvReac 3 BLEEDING Verified 05/21/21 04:54 ULCERS morphine AdvReac HEADACHE Verified 05/21/21 04:54 oxycodone [From Percocet] AdvReac Itching Verified 05/21/21 04:54 Family History Mother Heart disease Cancer ovarian Father Hypertension Arthritis Hyperlipemia Grandmother Breast cancer Heart disease Grandfather Heart disease Surgical History H/O cardiac catheterization H/O heart artery stent History of appendectomy history of carpal tunnel release left wrist History of carpal tunnel surgery of left wrist History of cholecystectomy History of gastric bypass History of PTCA History of right ankle surgery history of right hip surgery History of tonsillectomy Social History household members: none Smoking Status: Current every day smoker tobacco type: cigarettes Tobacco: How many years used: 39 alcohol intake: never substance use type: does not use caffeine: No what type of physical activity do you participate in: none Results Lab / Micro Data Result Diagrams: 05/21/21 14:08 05/21/21 14:08 Charges/Coding Addendum Addendum: Patient was seen and examined today independently of ePlon Barboza, she came into the ER early this morning at [facility] with right hip pain, her right hip was dislocated-this is a chronic problem for the patient and she is due to follow-up with orthopedic surgery about this. The last time she was in the ER here was May 09 of this year and her hip had to be reduced at that time. Since the reduction this morning in the ER, patient has been hypoxic according to the emergency room physician-he initially thought that she did not have home oxygen-I am examining her in the ER and she admitted that she has home oxygen and that she is supposed to be on 3 L/min via nasal cannula. On examination she does not appear to be in any distress, patient appears drowsy. Vital signs as documented. Skin warm and dry and without overt rashes. Neck without JVD, thyroid appears normal, trachea is midline, neck is supple. Lungs-expiratory wheezes were noted to be scattered over both lung wilson, normal air movement was noted however. Heart exam notable for regular rhythm, normal sounds and absence of murmurs, rubs or gallops. Abdomen unremarkable and without evidence of organomegaly, masses, or abdominal aortic enlargement, bowel sounds are present in all 4 quadrants, no abdominal tenderness was noted. Extremities nonedematous, no cyanosis was noted, no clubbing was noted. Neuro: Cranial nerves II through XII are grossly intact, no focal motor deficits were noted, sensation to light touch and pinprick is intact, motor exam 5/5 throughout. Psych: Patient is alert and oriented x3, she does not appear anxious or depressed, she does not appear agitated. Impression: #1 exacerbation of COPD-patient has expiratory wheezes scattered over both lungs, she is currently on 2 L via nasal cannula which is lower than what she told me that she was supposed to wear at home, patient will be placed in observation status on PCU, she will be given IV Solu-Medrol and aerosol treatments, she will be reevaluated tomorrow. More than likely she will have to wear oxygen continuously at home. Patient states she does see pulmonary medicine on an ongoing basis. #2 chronic hypoxic respiratory failure-patient will need to wear continuous oxygen at home #3 encephalopathy secondary to administration of medication for reduction of right hip-I will adjust the patient's medications, she appears to be on many sedating medications at home #4 chronic dislocation of the right hip-patient has an appointment next Monday to see orthopedic surgery (Dr. Yung) about her chronic right hip dislocation. I have reviewed Pelon Barboza's history and physical including his medical assessment and plan of care and with the above additions endorse it. Total clinical time spent by myself addressing the patient's issues, reviewing the patient's medical record, and collaborating with the patient's care team: 45 minutes Visit Charges OBSV E&M: [id number] Initial observation care L3
[2021-05-21 17:11] LABS: Bedside Glucose 162 mg/dL (74-106)
[2021-05-21] MEDS: MethylPREDNISolone 125 MG/2 ML Vial IV (17:12)
[2021-05-21] MEDS: Insulin Lispro 100 UNIT/ML INSULN.PEN SC ×2 (17:17→22:08)
[2021-05-21] MEDS: Ipratropium/Albuterol Sulfate 3 ML AMPUL.NEB INHALATION (19:24)
[2021-05-21 22:21] LABS: Bedside Glucose 234 mg/dL (74-106)
[2021-05-21] MEDS: APIXABAN 5 MG TABLET PO (22:56)
[2021-05-21] MEDS: busPIRone 15 MG TABLET 30 MG PO (22:56)
[2021-05-21] MEDS: Atorvastatin Calcium 80 MG Tablet PO (22:56)
[2021-05-21] MEDS: Lisinopril 20 MG Tablet PO (22:56)
[2021-05-21] MEDS: RisperiDONE 2 MG Tablet 4 MG PO (22:56)
[2021-05-22 00:50] VITALS: BP 135/82; PULSE 91; RESP 18; TEMP 37.2; O2SAT 96
[2021-05-22] MEDS: Ipratropium/Albuterol Sulfate 3 ML AMPUL.NEB INHALATION ×2 (03:08→06:59)
[2021-05-22] MEDS: HYDROcodone Bitartrate/Apap 5/325 Tablet PO (04:08)
[2021-05-22 04:48] VITALS: RESP 18
[2021-05-22 05:30] LABS: Absolute Lymphocyte Count 0.34 X10^3/uL (0.83-4.51); Absolute Neutrophil Count 7.9 X10^3/uL (2.0-7.7); Basophil# 0.01 X10^3/uL; Basophil% 0.1 % (0-1); Hemoglobin 12.3 g/dL (12.0-15.0); Lymphocyte # 0.34 X10^3/ul (0.83-4.51); Lymphocyte % 4.1 % (19-41); Mean Corp Hgb Conc 32.4 g/dL (32-36); Mean Corpuscular Volume 83.5 fL (81-99); Mean Platelet Vol. 9.2 fl (6.2-12.0); Monocyte# 0.08 X10^3/uL; NRBC Flagged by Analyzer 0 % (0-5); Neutrophil # 7.92 X10^3/uL (2.7-7.7); Neutrophil % 94.6 % (47-70); POSITIVE DIFFERENTIAL YES; Platelet Count 296 K/mm3 (150-450); RBC Distribution Width CV 17.7 % (11.6-14.6); RBC Distribution Width SD 53.9 fl (35.1-43.9); Red Blood Count 4.55 M/mm3 (4.2-5.4); White Blood Count 8.4 K/mm3 (4.4-11.0)
[2021-05-22 05:37] LABS: Differential Indicated SCAN CRITERIA MET
[2021-05-22 06:04] LABS: Anion Gap 5 (5-15); BUN 11 mg/dL (7-18); BUN/Creat Ratio 16.8 RATIO (10-20); Calcium,Total 9.6 mg/dL (8.5-10.1); Chloride 106 mmol/L (98-107); Creatinine, Serum 0.66 mg/dL (0.55-1.02); EST Glomerular Filtration Rate 99 mL/min (>60); Est Glom Filt Rate - Afr Amer 120 mL/min (>60); Estimated Creatinine Clearance 79.67 ml/min; Glucose 222 mg/dL (74-106); Potassium 4.3 mmol/L (3.5-5.1); Sodium Level 134 mmol/L (136-145)
[2021-05-22 06:05] LABS: Differential Comment SCANNED
[2021-05-22 06:50] VITALS: BP 138/85; PULSE 101; RESP 18; TEMP 36.4; O2SAT 97
[2021-05-22 06:59] VITALS: PULSE 99; RESP 16; O2SAT 93
[2021-05-22] MEDS: Insulin Lispro 100 UNIT/ML INSULN.PEN SC (07:01)
[2021-05-22 07:06] LABS: Bedside Glucose 188 mg/dL (74-106)
[2021-05-22 08:37] VITALS: BP 115/64; PULSE 104
[2021-05-22] MEDS: Pantoprazole Sodium 20 MG Tablet PO (08:37)
[2021-05-22] MEDS: APIXABAN 5 MG TABLET PO (08:37)
[2021-05-22] MEDS: Clopidogrel Bisulfate 75 MG Tablet PO (08:37)
[2021-05-22] MEDS: Metoprolol(XL)Succ 50 MG Tablet PO (08:37)
[2021-05-22] MEDS: lamoTRIgine 150 MG Tablet PO (08:37)
[2021-05-22] MEDS: Potassium Chloride Oral Tablet 20 MEQ 40 MEQ PO (08:38)
[2021-05-22] MEDS: Mirabegron 25 MG TAB.ER.24H PO (08:38)
[2021-05-22] MEDS: amLODIPine 10 MG Tablet PO (08:38)
[2021-05-22] MEDS: Escitalopram Oxalate 20 MG Tablet PO (08:38)
[2021-05-22] MEDS: Furosemide 20 MG Tablet PO (08:38)
[2021-05-22] MEDS: oxyCODONE 5 MG Tablet 7.5 MG PO (08:39)
[2021-05-22] MEDS: busPIRone 15 MG TABLET 30 MG PO (08:39)
--- NOTE | 2021-05-22 09:32 | DCINST_ITS ---
Discharge Instructions Follow Up Care Test Results: Test results from this visit will be discussed in further detail at your follow-up appointment, if applicable. Discharge Plan Admission Admit Date/Time: 05/21/21 15:34 Primary Reason for Your Visit: Hypoxia Attending Provider: Jese Strauss Primary Care Provider: Janel Taylor Instructions Patient Instructions: ED Hip Replace Dislocation Reduc Additional Instructions / Restrictions: * Please follow-up with orthopedics to discuss possible need for revision secondary to your recurrent dislocations and return to the ER should you have any further concerns * You are on several sedating medications. Take note to the medications that have been stopped or changed. * Follow up with your primary care provider to reconcile your home medications and decide which ones can be stopped or continued. Discharge Orders/Prescriptions Prescriptions: Continued atorvastatin 80 MG tablet 80 mg PO QHS RF: 0 risperidone 4 mg tablet 4 mg PO QHS RF: 0 trazodone 100 MG tablet 200 mg PO QHS PRN (Reason: Insomnia) RF: 0 pregabalin 75 MG capsule 75 mg PO TID RF: 0 buspirone 30 mg tablet 30 mg PO BID RF: 0 furosemide 20 MG tablet 20 mg PO DAILY RF: 0 Hold Instructions: Resume on 01/22/21. mirabegron 25 MG tablet extended release 24 hr 25 mg PO DAILY RF: 0 apixaban 5 MG tablet 5 mg PO BID RF: 0 clopidogrel 75 mg tablet 75 mg PO DAILY RF: 0 promethazine 25 mg Tablet 25 mg PO BID PRN PRN (Reason: Nausea) RF: 0 escitalopram oxalate 20 mg Tablet 20 mg PO DAILY RF: 0 Advair HFA 230-21 mcg/actuation Hfa Aerosol Inhaler 2 puff INHALATION BID RF: 0 albuterol sulfate 1 PUFF HFA aerosol inhaler 2 puff IH Q4H PRN PRN (Reason: SOB &/or Wheezing ) RF: 0 fluticasone propionate 50 mcg/actuation [place],Suspension 1 spray INTRANASAL BID RF: 0 potassium chloride [K-Tab] 20 mEq tablet extended release 40 meq PO DAILY RF: 0 lamotrigine 150 mg tablet 150 mg PO DAILY RF: 0 metoprolol succinate 50 mg tablet extended release 24 hr 50 mg PO DAILY RF: 0 alendronate 70 mg tablet 70 mg PO QWEEK RF: 0 oxycodone-acetaminophen 5-325 mg tablet 1 tab PO Q8H PRN (Reason: Pain) RF: 0 amlodipine 10 mg tablet 10 mg PO DAILY RF: 0 omeprazole 20 mg capsule,delayed release(DR/EC) 20 mg PO DAILY RF: 0 lisinopril 20 MG tablet 20 mg PO QHS RF: 0 tiotropium bromide 2.5 mcg/actuation mist 2 puff INHALATION DAILY Qty: 4 RF: 3 Changed baclofen 10 mg tablet 10 mg PO Q8H PRN PRN (Reason: pain) Qty: 0 RF: 0 Discontinued sucralfate 1 gram tablet 1 g PO ACHS RF: 0 oxycodone-acetaminophen 7.5-325 mg tablet 1 tab PO Q6H PRN (Reason: Pain) RF: 0 Referrals / Follow Up: Lucas Willoughby MD [STAFF PHYSICIAN] - See Referral Note (Proceed to your scheduled appointment on Tuesday May 25, 2021. ) Janel Taylor MD [Primary Care Provider] - Within 2 Weeks Pop Yung MD [STAFF PHYSICIAN] - 05/26/21 8:45 am Disposition Disposition (needs filled in before D/C Order can be placed): Home, Self Care
[2021-05-22 09:47] VITALS: BP 126/78; PULSE 93; RESP 18; TEMP 36.9; O2SAT 96
--- NOTE | 2021-05-22 10:58 | NURSING ---
This RN asked patient to walk, to obtain a walking oxygen requirement, but patient refused and stated that she doesn't walk at home. This RN tested pt at rest, on room air, and O2 saturation was 96%.
--- NOTE | 2021-05-22 12:15 | PCM.DC.SUM ---
Documented by User: Pelon HO 05/22/21 12:30 Providers Date of Admission: 05/21/21 Date of Discharge: 05/22/21 Primary Care Physician: Dr. Janel Taylor MD Reason For Visit: HYPOXIA Diagnosis Discharge Diagnosis (1) Hypoxia: Status: Acute Code(s): R09.02 - Hypoxemia Medications at Discharge Home Medications atorvastatin 80 mg PO QHS 08/22/15 pregabalin 75 mg PO TID 03/08/18 risperidone 4 mg PO QHS 03/08/18 trazodone 200 mg PO QHS PRN 03/08/18 furosemide 20 mg PO DAILY 11/20/18 mirabegron 25 mg PO DAILY 11/20/18 apixaban 5 mg PO BID 05/02/19 buspirone 30 mg tablet 30 mg PO BID tab 06/27/19 tiotropium bromide 2.5 mcg/actuation mist for inhalation 2 puff INHALATION DAILY #4 g 09/30/19 clopidogrel 75 mg PO DAILY 07/31/20 Advair HFA 2 puff INHALATION BID 11/14/20 albuterol sulfate 2 puff IH Q4H PRN PRN 11/14/20 escitalopram oxalate 20 mg PO DAILY 11/14/20 fluticasone propionate 1 spray INTRANASAL BID 11/14/20 promethazine 25 mg PO BID PRN PRN 11/14/20 potassium chloride [K-Tab] 40 meq PO DAILY 01/13/21 alendronate 70 mg PO QWEEK 05/21/21 amlodipine 10 mg PO DAILY 05/21/21 lamotrigine 150 mg PO DAILY 05/21/21 lisinopril 20 mg PO QHS 05/21/21 metoprolol succinate 50 mg PO DAILY 05/21/21 omeprazole 20 mg PO DAILY 05/21/21 oxycodone-acetaminophen 1 tab PO Q8H PRN 05/21/21 baclofen 10 mg PO Q8H PRN PRN #0 tab 05/22/21 Hospital Course Summary of Care Provided Minutes Spent on Discharge: 20 Hospital Course: Patient is a 55-year-old female who was admitted to [facility] on 05/22/2021 for observation due to hypoxia which developed in the emergency department where patient was being evaluated for dislocated right hip. Patient's past medical history was significant for COPD and patient did have wheezing on admission, as a result patient was initiated on steroids and bronchodilators during admission. Hypoxia resolved overnight and patient was observed satting at 96% on room air on day of discharge. Patient already has an established appointment with pulmonary medicine on 05/25/2021. Patient was advised to attend appointment and consult with Dr. Willoughby on adjustment of her home COPD regimen as well as possible transition to full-time supplemental oxygen. Of note, patient is on several sedating medications for which she is somewhat unclear as to why. Medications were reconciled during admission and prescription for [place] was stopped, baclofen was made to as needed from a scheduled regimen and patient's home sucralfate was discontinued as patient was unsure as to why she was on this prescription. Patient was advised to follow-up with her primary care provider for further adjustment of her home medication regimen. Also, patient is to follow-up with Dr. Yung for possible close reduction of her right hip. Patient seen by Pelon Barboza PA-C, under the supervision of Dr. Strauss. Time spent on patient care: 20 minutes. Physical Exam Narrative Patient is a 55-year-old female comfortably resting in bed, alert and orient x3. Patient denies development of any new symptoms overnight. Does not appear in acute distress. Const alert, oriented x3 and no apparent distress HEENT normocephalic, head/scalp atraumatic and hearing grossly normal bilaterally Eyes PERRL, EOMs intact bilaterally and conjunctivae normal Neck no lymphadenopathy, supple and no JVD Resp normal respiratory effort, no retractions and no use of accessory muscles Cardio regular rate, regular rhythm and no JVD GI normal to inspection, nondistended, normoactive bowel sounds Extremity normal to inspection Skin no rashes or lesions noted Neuro CN's II-XII intact bilaterally Psych affect normal Weight / BMI Weight Weight: 208 lb Body Mass Index (BMI) 36.8 ABG / Lab / Microbiology Data Result Diagrams: 05/22/21 04:16 05/22/21 04:16 Laboratory: Laboratory Results - last 24 hr 05/21/21 14:08: WBC 12.3 H, RBC 4.48, Hgb 12.5, Hct 38.8, MCV 86.6, MCH 27.9, MCHC 32.2, RDW Std Deviation 56.9 H, RDW Coeff of [place] 17.8 H, Plt Count 288, MPV 9.0, Immature Gran % (Auto) 0.600, Neut % (Auto) 78.8 H, Lymph % (Auto) 9.3 L, Antelope % (Auto) 9.8, Eos % (Auto) 0.8, Baso % (Auto) 0.7, Absolute Neuts (auto) 9.7 H, Absolute Lymphs (auto) 1.14, Nucleated RBC % 0 05/21/21 14:08: Sodium 136, Potassium 4.2, Chloride 108 H, Carbon Dioxide 25.0, Anion Gap 3 L, BUN 16, Creatinine 0.84, Estim Creat Clear Calc 62.60, Est GFR (MDRD) Af Amer 90, Est GFR (MDRD) Non-Af 74, BUN/Creatinine Ratio 19.0, Glucose 136 H, Calcium 8.8, Total Bilirubin 0.20, AST 22, ALT 18, Alkaline Phosphatase 132 H, Total Protein 6.1 L, Albumin 2.5 L, Globulin 3.6, Albumin/Globulin Ratio 0.7 L 05/21/21 17:05: POC Glucose 162 H 05/21/21 22:06: POC Glucose 234 H 05/22/21 04:16: WBC 8.4, RBC 4.55, Hgb 12.3, Hct 38.0, MCV 83.5, MCH 27.0, MCHC 32.4, RDW Std Deviation 53.9 H, RDW Coeff of [place] 17.7 H, Plt Count 296, MPV 9.2, Immature Gran % (Auto) 0.200, Neut % (Auto) 94.6 H, Lymph % (Auto) 4.1 L, [place] % (Auto) 1.0, Eos % (Auto) 0.0, Baso % (Auto) 0.1, Absolute Neuts (auto) 7.9 H, Absolute Lymphs (auto) 0.34 L, Nucleated RBC % 0, Differential Comment SCANNED 05/22/21 04:16: Sodium 134 L, Potassium 4.3, Chloride 106, Carbon Dioxide 23.0, Anion Gap 5, BUN 11, Creatinine 0.66, Estim Creat Clear Calc 79.67, Est GFR (MDRD) Af Amer 120, Est GFR (MDRD) Non-Af 99, BUN/Creatinine Ratio 16.8, Glucose 222 H, Calcium 9.6 05/22/21 07:00: POC Glucose 188 H Radiography Diagnostic Testing: Radiology Impression Chest X-Ray 05/21/21 14:25 IMPRESSION: Nonacute portable x-ray examination of the chest. Electronically Signed: Nitin Gimenez MD ([place]oks) at 14:40 EDT Reading Location ID and State: [address] [place] [address] , Service support , Meaningful Use Info Meaningful Use Diagnoses (Choose all that apply): None applicable Discharge Plan Admission Admit Date/Time: 05/21/21 15:34 Primary Reason for Your Visit: Hypoxia Attending Provider: Jese Strauss Primary Care Provider: Janel Taylor Instructions Patient Instructions: ED Hip Replace Dislocation Reduc Additional Instructions / Restrictions: * Please follow-up with orthopedics to discuss possible need for revision secondary to your recurrent dislocations and return to the ER should you have any further concerns * You are on several sedating medications. Take note to the medications that have been stopped or changed. * Follow up with your primary care provider to reconcile your home medications and decide which ones can be stopped or continued. Discharge Orders/Prescriptions Prescriptions: Continued atorvastatin 80 MG tablet 80 mg PO QHS RF: 0 risperidone 4 mg tablet 4 mg PO QHS RF: 0 trazodone 100 MG tablet 200 mg PO QHS PRN (Reason: Insomnia) RF: 0 pregabalin 75 MG capsule 75 mg PO TID RF: 0 buspirone 30 mg tablet 30 mg PO BID RF: 0 furosemide 20 MG tablet 20 mg PO DAILY RF: 0 Hold Instructions: Resume on 01/22/21. mirabegron 25 MG tablet extended release 24 hr 25 mg PO DAILY RF: 0 apixaban 5 MG tablet 5 mg PO BID RF: 0 clopidogrel 75 mg tablet 75 mg PO DAILY RF: 0 promethazine 25 mg Tablet 25 mg PO BID PRN PRN (Reason: Nausea) RF: 0 escitalopram oxalate 20 mg Tablet 20 mg PO DAILY RF: 0 Advair HFA 230-21 mcg/actuation Hfa Aerosol Inhaler 2 puff INHALATION BID RF: 0 albuterol sulfate 1 PUFF HFA aerosol inhaler 2 puff IH Q4H PRN PRN (Reason: SOB &/or Wheezing ) RF: 0 fluticasone propionate 50 mcg/actuation [place],Suspension 1 spray INTRANASAL BID RF: 0 potassium chloride [K-Tab] 20 mEq tablet extended release 40 meq PO DAILY RF: 0 lamotrigine 150 mg tablet 150 mg PO DAILY RF: 0 metoprolol succinate 50 mg tablet extended release 24 hr 50 mg PO DAILY RF: 0 alendronate 70 mg tablet 70 mg PO QWEEK RF: 0 oxycodone-acetaminophen 5-325 mg tablet 1 tab PO Q8H PRN (Reason: Pain) RF: 0 amlodipine 10 mg tablet 10 mg PO DAILY RF: 0 omeprazole 20 mg capsule,delayed release(DR/EC) 20 mg PO DAILY RF: 0 lisinopril 20 MG tablet 20 mg PO QHS RF: 0 tiotropium bromide 2.5 mcg/actuation mist 2 puff INHALATION DAILY Qty: 4 RF: 3 Changed baclofen 10 mg tablet 10 mg PO Q8H PRN PRN (Reason: pain) Qty: 0 RF: 0 Discontinued sucralfate 1 gram tablet 1 g PO ACHS RF: 0 oxycodone-acetaminophen 7.5-325 mg tablet 1 tab PO Q6H PRN (Reason: Pain) RF: 0 Referrals / Follow Up: Lucas Willoughby MD [STAFF PHYSICIAN] - See Referral Note (Proceed to your scheduled appointment on Tuesday May 25, 2021. ) Janel Taylor MD [Primary Care Provider] - Within 2 Weeks Pop Yung MD [STAFF PHYSICIAN] - 05/26/21 8:45 am Disposition Disposition (needs filled in before D/C Order can be placed): Home, Self Care Documented by User: Dr. Jese Strauss DO 05/22/21 13:19 Providers Date of Admission: 05/21/21 Reason For Visit: HYPOXIA Medications at Discharge Home Medications atorvastatin 80 mg PO QHS 08/22/15 pregabalin 75 mg PO TID 03/08/18 risperidone 4 mg PO QHS 03/08/18 trazodone 200 mg PO QHS PRN 03/08/18 furosemide 20 mg PO DAILY 11/20/18 mirabegron 25 mg PO DAILY 11/20/18 apixaban 5 mg PO BID 05/02/19 buspirone 30 mg tablet 30 mg PO BID tab 06/27/19 tiotropium bromide 2.5 mcg/actuation mist for inhalation 2 puff INHALATION DAILY #4 g 09/30/19 clopidogrel 75 mg PO DAILY 07/31/20 Advair HFA 2 puff INHALATION BID 11/14/20 albuterol sulfate 2 puff IH Q4H PRN PRN 11/14/20 escitalopram oxalate 20 mg PO DAILY 11/14/20 fluticasone propionate 1 spray INTRANASAL BID 11/14/20 promethazine 25 mg PO BID PRN PRN 11/14/20 potassium chloride [K-Tab] 40 meq PO DAILY 01/13/21 alendronate 70 mg PO QWEEK 05/21/21 amlodipine 10 mg PO DAILY 05/21/21 lamotrigine 150 mg PO DAILY 05/21/21 lisinopril 20 mg PO QHS 05/21/21 metoprolol succinate 50 mg PO DAILY 05/21/21 omeprazole 20 mg PO DAILY 05/21/21 oxycodone-acetaminophen 1 tab PO Q8H PRN 05/21/21 baclofen 10 mg PO Q8H PRN PRN #0 tab 05/22/21 Hospital Course Operations None Procedures None Summary of Care Provided Minutes Spent on Discharge: 15 Hospital Course: Is 55-year-old female presented with 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 While patient was sitting and she flexed forward further and then desiccated her hip. Presented to the emergency room where it was reduced patient was noted to be hypoxic and the hospital service was contacted for admission. Patient is on oxygen at home which is unclear if the ER physician knew that at this time. Patient is on her home oxygen and has been stable. For her hip dislocation has been recurrence, patient is already had a scheduled appointment for this coming Monday for recommendations on more definitive management. Patient will be discharged home in stable condition. Physical Exam HEENT normocephalic and head/scalp atraumatic Resp normal respiratory effort, no retractions, no use of accessory muscles and clear to auscultation bilaterally Cardio regular rate, regular rhythm, S1 normal heart sound and S2 normal heart sound GI normal to inspection, nondistended, normoactive bowel sounds ABG / Lab / Microbiology Data Result Diagrams: 05/22/21 04:16 05/22/21 04:16 D/C Instructions Discharge Diet: No restrictions Discharge Plan Admission Admit Date/Time: 05/21/21 15:34 Primary Reason for Your Visit: Hypoxia Attending Provider: Jese Strauss Primary Care Provider: Janel Taylor Instructions Patient Instructions: ED Hip Replace Dislocation Reduc Additional Instructions / Restrictions: * Please follow-up with orthopedics to discuss possible need for revision secondary to your recurrent dislocations and return to the ER should you have any further concerns * You are on several sedating medications. Take note to the medications that have been stopped or changed. * Follow up with your primary care provider to reconcile your home medications and decide which ones can be stopped or continued. Discharge Orders/Prescriptions Prescriptions: Continued atorvastatin 80 MG tablet 80 mg PO QHS RF: 0 risperidone 4 mg tablet 4 mg PO QHS RF: 0 trazodone 100 MG tablet 200 mg PO QHS PRN (Reason: Insomnia) RF: 0 pregabalin 75 MG capsule 75 mg PO TID RF: 0 buspirone 30 mg tablet 30 mg PO BID RF: 0 furosemide 20 MG tablet 20 mg PO DAILY RF: 0 Hold Instructions: Resume on 01/22/21. mirabegron 25 MG tablet extended release 24 hr 25 mg PO DAILY RF: 0 apixaban 5 MG tablet 5 mg PO BID RF: 0 clopidogrel 75 mg tablet 75 mg PO DAILY RF: 0 promethazine 25 mg Tablet 25 mg PO BID PRN PRN (Reason: Nausea) RF: 0 escitalopram oxalate 20 mg Tablet 20 mg PO DAILY RF: 0 Advair HFA 230-21 mcg/actuation Hfa Aerosol Inhaler 2 puff INHALATION BID RF: 0 albuterol sulfate 1 PUFF HFA aerosol inhaler 2 puff IH Q4H PRN PRN (Reason: SOB &/or Wheezing ) RF: 0 fluticasone propionate 50 mcg/actuation [place],Suspension 1 spray INTRANASAL BID RF: 0 potassium chloride [K-Tab] 20 mEq tablet extended release 40 meq PO DAILY RF: 0 lamotrigine 150 mg tablet 150 mg PO DAILY RF: 0 metoprolol succinate 50 mg tablet extended release 24 hr 50 mg PO DAILY RF: 0 alendronate 70 mg tablet 70 mg PO QWEEK RF: 0 oxycodone-acetaminophen 5-325 mg tablet 1 tab PO Q8H PRN (Reason: Pain) RF: 0 amlodipine 10 mg tablet 10 mg PO DAILY RF: 0 omeprazole 20 mg capsule,delayed release(DR/EC) 20 mg PO DAILY RF: 0 lisinopril 20 MG tablet 20 mg PO QHS RF: 0 tiotropium bromide 2.5 mcg/actuation mist 2 puff INHALATION DAILY Qty: 4 RF: 3 Changed baclofen 10 mg tablet 10 mg PO Q8H PRN PRN (Reason: pain) Qty: 0 RF: 0 Discontinued sucralfate 1 gram tablet 1 g PO ACHS RF: 0 oxycodone-acetaminophen 7.5-325 mg tablet 1 tab PO Q6H PRN (Reason: Pain) RF: 0 Referrals / Follow Up: Lucas Willoughby MD [STAFF PHYSICIAN] - See Referral Note (Proceed to your scheduled appointment on Tuesday May 25, 2021. ) Janel Taylor MD [Primary Care Provider] - Within 2 Weeks Pop Yung MD [STAFF PHYSICIAN] - 05/26/21 8:45 am Disposition Disposition (needs filled in before D/C Order can be placed): Home, Self Care Charges/Coding Visit Charges OBSV E&M: 87924 Observation care discharge
== END 2021-05-22 09:37 | disposition home or self-care (01) ==
LOC: ED 08:29 → PCU 15:58
PROVIDERS: Emergency Medicine; Physician Assistant; Admitting Provider Internal Medicine; Emergency Provider Emergency Medicine; PCP Family Medicine
DX: S73.014A Posterior dislocation of right hip, initial encounter (principal); F25.9 Schizoaffective disorder, unspecified; J44.1 Chronic obstructive pulmonary disease with (acute) exacerbation; E66.01 Morbid (severe) obesity due to excess calories; E11.9 Type 2 diabetes mellitus without complications; I10 Essential (primary) hypertension; R09.02 Hypoxemia; F17.210 Nicotine dependence, cigarettes, uncomplicated; G93.40 Encephalopathy, unspecified; M19.90 Unspecified osteoarthritis, unspecified site; K21.9 Gastro-esophageal reflux disease without esophagitis; E78.00 Pure hypercholesterolemia, unspecified; Z79.02 Long term (current) use of antithrombotics/antiplatelets; Z79.51 Long term (current) use of inhaled steroids; Z79.01 Long term (current) use of anticoagulants; Z86.711 Personal history of pulmonary embolism; Z68.36 Body mass index [BMI] 36.0-36.9, adult; Z99.81 Dependence on supplemental oxygen; I25.2 Old myocardial infarction; G47.33 Obstructive sleep apnea (adult) (pediatric); Z98.84 Bariatric surgery status
CPT/HCPCS: 36415; 71045; 73502; 80048; 80053; 82962; 85025; 94640; 96361; 96374; 96375; 96376; 99152; 99218; 99251; 99285; 99406; J7030; A4216; G0378; G0463; J2405

== ENCOUNTER 2021-05-26 14:10 | Emergency (ER) | payer MEDICARE, MEDICAID, SELFPAY ==
[2021-05-26] VITALS (7 sets, daily range): BP systolic 142–173; BP diastolic 72–93; PULSE 72–100; RESP 16–22; TEMP 36.9–37; O2SAT 95–99; BMI 91.3
[2021-05-26] MEDS: fentaNYL 100 MCG/2 ML Ampul 50 MCG IV (14:28)
--- NOTE | 2021-05-26 14:30 | RAD_ITS ---
STUDY: X-RAY - PELVIS AND RIGHT HIP REASON FOR EXAM: Female, 55 years old. Dislocation TECHNIQUE: 3 views of the pelvis and hip. COMPARISON: Comparison is made with prior examination dated 05/21/2021. FINDINGS: There is a non-specific bowel gas pattern. There are multiple calcified phleboliths. There is evidence of posterior superior dislocation of the prosthetic right hip joint. 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 Electronically Signed: Manuelito Silva MD at 14:48 EDT ,
--- NOTE | 2021-05-26 15:25 | RAD_ITS ---
STUDY: X-RAY - PELVIS AND RIGHT HIP REASON FOR EXAM: Female, 55 years old. Post reduction TECHNIQUE: 2 views of the pelvis and hip. COMPARISON: Comparison is made with prior study done earlier today. FINDINGS: Satisfactory reduction of the prosthetic right hip joint. RAD/HIP, UNI W/ Pelvis 2-3 Views IMPRESSION: Satisfactory reduction of the prosthetic right hip joint. Electronically Signed: Manuelito Silva MD at 15:39 EDT ,
--- NOTE | 2021-05-26 15:44 | EDS_ITS ---
HPI History of Present Illness Chief Complaint: Lower Extremity Injury Detail of Chief Complaint: Right hip pain Informant: patient Narrative Narrative: Patient presents to the emergency department complaint of right hip pain after bending over. Patient has history of frequent hip dislocations and last time was a week ago. Patient tells me she saw her orthopedic surgeon earlier today and is scheduled for revision of her hip sometime in July possibly. Patient was not wearing her knee immobilizer and states that the surgeon took it from her because it was down around her ankles and did not feel like it was doing any good. Patient complains of severe pain. [facility] Medical History (Updated 05/26/21 @ 15:[address] Shanel Barbosa, DO) Anemia Asthma Benign essential hypertension BiPAP (biphasic positive airway pressure) dependence Bleeding tendency Chest pain Chronic cough Chronic narcotic use COPD (chronic obstructive pulmonary disease) Current use of insulin Delayed surgical wound healing Diabetes Emphysema of lung Gastroesophageal reflux disease High cholesterol Hip osteoarthritis History of pulmonary embolism History of stress test Hypertension Irregular heart beat Irritable bowel Morbid obesity Morbid obesity with BMI of 45.0-49.9, adult Myocardial infarct On home oxygen therapy RACHEL (obstructive sleep apnea) Pancreatitis Peptic ulcer Pulmonary hypertension Schizoaffective disorder Schizophrenia Sleep apnea Smoker Spinal stenosis of lumbar region at multiple levels Stage 2 moderate COPD by GOLD classification Thyroid nodule Tobacco abuse Ulcer Vitamin D deficiency Home Medications atorvastatin 80 mg PO QHS 08/22/15 [History Last Taken 03/15/21] pregabalin 75 mg PO TID 03/08/18 [History Last Taken 03/15/21] risperidone 4 mg PO QHS 03/08/18 [History Last Taken 03/15/21] trazodone 200 mg PO QHS PRN 03/08/18 [History Last Taken 03/15/21] furosemide 20 mg PO DAILY 11/20/18 [History Last Taken 03/15/21] mirabegron 25 mg PO DAILY 11/20/18 [History Last Taken 03/15/21] apixaban 5 mg PO BID 05/02/19 [History Last Taken 03/15/21] buspirone 30 mg tablet 30 mg PO BID tab 06/27/19 [History Last Taken 03/15/21] tiotropium bromide 2.5 mcg/actuation mist for inhalation 2 puff INHALATION DAILY #4 g 09/30/19 [Rx Last Taken 03/15/21] clopidogrel 75 mg PO DAILY 07/31/20 [History Last Taken 03/15/21] Advair HFA 2 puff INHALATION BID 11/14/20 [History Last Taken 03/15/21] albuterol sulfate 2 puff IH Q4H PRN PRN 11/14/20 [History Last Taken Unknown] escitalopram oxalate 20 mg PO DAILY 11/14/20 [History Last Taken 03/15/21] fluticasone propionate 1 spray INTRANASAL BID 11/14/20 [History Last Taken 03/15/21] promethazine 25 mg PO BID PRN PRN 11/14/20 [History Last Taken Unknown] potassium chloride [K-Tab] 40 meq PO DAILY 01/13/21 [History Last Taken 03/15/21] alendronate 70 mg PO QWEEK 05/21/21 [History Last Taken Unknown] amlodipine 10 mg PO DAILY 05/21/21 [History Last Taken Unknown] lamotrigine 150 mg PO DAILY 05/21/21 [History Last Taken Unknown] lisinopril 20 mg PO QHS 05/21/21 [History Last Taken Unknown] metoprolol succinate 50 mg PO DAILY 05/21/21 [History Last Taken Unknown] omeprazole 20 mg PO DAILY 05/21/21 [History Last Taken Unknown] baclofen 10 mg PO Q8H PRN PRN #0 tab 05/22/21 [Rx Last Taken Unknown] albuterol sulfate 2.5 mg INHALATION Q4H PRN #180 ml 05/25/21 [Rx Last Taken Unknown] hydrocodone-acetaminophen 1 tab PO Q4H PRN PRN 2 Days #10 tablet 05/26/21 [Rx Last Taken Unknown] Allergy/AdvReac Type Severity Reaction Status Date / Time amoxicillin Allergy Itching Verified 05/25/21 13:26 erythromycin base Allergy Unknown Verified 05/25/21 13:26 methadone Allergy Itching Verified 05/25/21 13:26 metolazone Allergy Unknown Verified 05/25/21 13:26 Penicillins Allergy Hives Verified 05/25/21 13:26 Sulfa (Sulfonamide Allergy Hives Verified 05/25/21 13:26 Antibiotics) clarithromycin [From Biaxin] AdvReac Nausea Verified 05/25/21 13:26 ibuprofen AdvReac 3 BLEEDING Verified 05/25/21 13:26 ULCERS morphine AdvReac HEADACHE Verified 05/25/21 13:26 oxycodone [From Percocet] AdvReac Itching Verified 05/25/21 13:26 Family History (Reviewed 05/25/21 @ 13:35 by Rosanna Hampton 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, 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-C) Mother Heart disease Cancer ovarian Father Hypertension Arthritis Hyperlipemia Grandmother Breast cancer Heart disease Grandfather Heart disease Surgical History H/O cardiac catheterization H/O heart artery stent History of appendectomy history of carpal tunnel release left wrist History of carpal tunnel surgery of left wrist History of cholecystectomy History of gastric bypass History of PTCA History of right ankle surgery history of right hip surgery History of tonsillectomy Social History (Reviewed 05/25/21 @ 13:35 by Rosanna Hampton 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, 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-[employer]) household members: none Smoking Status: Current every day smoker tobacco type: cigarettes Tobacco: How many years used: 39 alcohol intake: never substance use type: does not use caffeine: No what type of physical activity do you participate in: none ROS ROS ED Constitutional Constitutional ED: Reports systems reviewed and no addt'l complaints, except as documented; Denies body ache(s), change in weight or chills Eyes Eyes: Denies acute decrease in peripheral vision, change in vision, double vision or loss of vision ENT ENT ED: Reports none; Denies ear pain, lip swelling, loss taste/smell, neck pain, otalgia or sore throat Cardiovascular Cardiovascular: Reports none; Denies abdominal pain, chest pain with activity, leg edema, lightheadedness, palpitations, rapid heart rate or syncope Respiratory/Chest Respiratory/Chest: Reports none; Denies change in mental status, dry cough, dyspnea, hemoptysis, shortness of breath at rest or shortness of breath with exertion Gastrointestinal Gastrointestinal: Reports none; Denies abdominal pain, change in stool character, diarrhea, hematemesis, hematochezia, melena, rectal bleeding or vomiting Genitourinary Genitourinary ED: Reports none; Denies abdominal discomfort, anuria, dysuria, genital pain or polyuria Musculoskeletal Musculoskeletal: Reports none and other Details: Right hip pain ; Denies arthralgias, back pain, difficulty walking, extremity pain, muscle weakness or myalgias Integumentary Reports none; Denies abscess or rash Neurologic Neurologic: Reports none; Denies abnormal gait, confusion, focal weakness, frequent falls, headache(s), loss of vision, numbness, paresthesias, radicular pain, vertigo or weakness Psychiatric Psychiatric: Reports systems reviewed and no addt'l complaints, except as documented and none; Denies behavioral changes, confusion, difficulty concentrating, hallucinations, suicidal ideation, tactile hallucinations or visual hallucinations Endocrine Endocrinology: Denies none, cold intolerance, excessive sweating, fatigue or heat intolerance Hematologic/Lymphatic Hematologic/Lymphatic: Reports none; Denies anemia, easy bleeding or easy bruising Allergic/Immunologic Allergic/Immunologic ED: Denies as per HPI, none, lip swelling, mouth swelling, throat swelling, tongue swelling or hives EXAM Physical Exam Const Vital Signs: 05/26/21 14:11 05/26/21 15:00 05/26/21 15:02 Temperature 98.6 F 98.4 F Temperature Source Temporal Pulse Rate 100 94 Pulse Rate [1 (Initial Baseline)] 93 Pulse Rate [2] 99 Pulse Rate [3] 95 Pulse Rate [4] 95 Respiratory Rate 18 18 Respiratory Rate [1 (Initial Baseline)] 16 Respiratory Rate [2] 20 H Respiratory Rate [3] 22 H Respiratory Rate [4] 20 H Blood Pressure 151/93 H 168/83 H Blood Pressure [1 (Initial Baseline)] 173/83 H Blood Pressure [2] 173/87 H Blood Pressure [3] 167/78 H Blood Pressure [4] 159/72 H Blood Pressure Mean 112 Pulse Ox 96 97 Oxygen Delivery Method Room Air Room Air Oxygen Delivery Method [1 (Initial Baseline)] Nasal Cannula Oxygen Delivery Method [2] Nasal Cannula Oxygen Delivery Method [3] Nasal Cannula Oxygen Delivery Method [4] Room Air Oxygen Flow Rate (L/min) [1 (Initial Baseline)] 2 Oxygen Flow Rate (L/min) [2] 95 Oxygen Flow Rate (L/min) [3] 2 Fraction of Inspired Oxygen (FIO2) [1 (Initial Baseline)] 100 Fraction of Inspired Oxygen (FIO2) [2] 2 05/26/21 15:22 05/26/21 15:28 05/26/21 15:33 Temperature Temperature Source Pulse Rate Pulse Rate [1 (Initial Baseline)] Pulse Rate [2] Pulse Rate [3] Pulse Rate [4] Respiratory Rate Respiratory Rate [1 (Initial Baseline)] Respiratory Rate [2] Respiratory Rate [3] Respiratory Rate [4] Blood Pressure Blood Pressure [1 (Initial Baseline)] Blood Pressure [2] Blood Pressure [3] Blood Pressure [4] Blood Pressure Mean Pulse Ox Oxygen Delivery Method Room Air Room Air Room Air Oxygen Delivery Method [1 (Initial Baseline)] Oxygen Delivery Method [2] Oxygen Delivery Method [3] Oxygen Delivery Method [4] Oxygen Flow Rate (L/min) [1 (Initial Baseline)] Oxygen Flow Rate (L/min) [2] Oxygen Flow Rate (L/min) [3] Fraction of Inspired Oxygen (FIO2) [1 (Initial Baseline)] Fraction of Inspired Oxygen (FIO2) [2] Positive well nourished and well developed General Appearance ED: well developed and NAD HEENT Reports TM's clear and moist mucous membranes normocephalic and atraumatic; Negative for trauma or tenderness Tympanic Membrane ED: Yes TM's clear Eyes PERRL and EOMs intact bilaterally General Eye ED: Negative for pale conjunctiva or scleral icterus Neck no lymphadenopathy, supple and no JVD General: Negative for tenderness Chest Wall inspection of chest normal and palpation of chest normal Chest: Negative for tenderness Resp normal respiratory effort and clear to auscultation bilaterally Effort and Inspection: Negative for respiratory distress or pain with movement Auscultation: Negative for rhonchi, wheezes or diminished lung sounds Cardio regular rate, regular rhythm, S1 normal heart sound, S2 normal heart sound and no murmurs Peripheral Pulses: pulses 2+ throughout GI normal to inspection, nondistended, normoactive bowel sounds, soft to palpation, non-tender, non-distended and no masses Back/Spine no CVA tenderness and no thoracic nor lumbar tenderness Extremity Extremity Narrative: Evaluation of the right hip does reveal that the right lower extremity is shortened and somewhat internally rotated. Neurovascular intact distally. Limited range of motion at the hip secondary to pain. General Extremety ED: Negative for edema General Extremity: Negative for edema Neuro oriented x3, CN's II-XII intact bilaterally, no sensory deficits noted and gait normal Sensorium / Orientation: awake, alert, oriented to person, oriented to place and oriented to time Motor Exam: strength 5/5 throughout and strength abnormal Psych mental status grossly normal Skin no rashes or lesions noted and no wounds MDM MDM MDM Narrative Medical decision making narrative: Patient presented via EMS with IV. She was given fentanyl 50 mcg IV for pain. Patient was sedated with propofol total of 120 mg with good sedation. I attempted several techniques at reducing the hip and had difficulty. Dr. Armstrong was available to attempt a reduction and was able to reduce the hip. Post reduction films were obtained and there was good reduction noted. I did discuss case with patient's orthopedic surgeon who asked that we give her a long knee immobilizer. Patient will be discharged to home and advised to follow-up with her orthopedic surgeon as she is now on the schedule to have her hip revised. Radiography Diagnostic Testing: Clinical Impression(s) from Imaging Studies Hip/Pelvis X-Ray 05/26/21 14:30 IMPRESSION: Superior-posterior dislocation of the prosthetic right hip joint. Electronically Signed: Manuelito Silva MD at 14:48 EDT , Hip/Pelvis X-Ray 05/26/21 15:25 IMPRESSION: Satisfactory reduction of the prosthetic right hip joint. Electronically Signed: Manuelito Silva MD at 15:39 EDT , 2 view x-rays of the right hip obtained showed a superior posterior dislocation on my interpretation. No periprosthetic fractures noted. Radiology in agreement. 2 view post reduction x-rays obtained and on my interpretation showed good reduction of the hip. Without fractures. Discharge Plan Triage Chief Complaint: Lower Extremity Injury ED Provider: Shanel Barbosa Dx/Rx/DC Orders Clinical Impression: Dislocation, hip Instructions: ED Hip Replace Dislocation Reduc Prescriptions: New hydrocodone-acetaminophen [hydrocodone-acetaminophen] 1 TABLET tablet 1 tab PO Q4H PRN PRN (Reason: Pain) 2 Days Qty: 10 RF: 0 No Action albuterol sulfate 2.5 mg /3 mL (0.083 %) solution for nebulization 2.5 mg inhalation Q4H PRN (Reason: Sob &/Or Wheezing) Qty: 180 RF: 3 atorvastatin 80 MG tablet 80 mg PO QHS RF: 0 risperidone 4 mg tablet 4 mg PO QHS RF: 0 trazodone 100 MG tablet 200 mg PO QHS PRN (Reason: Insomnia) RF: 0 pregabalin 75 MG capsule 75 mg PO TID RF: 0 buspirone 30 mg tablet 30 mg PO BID RF: 0 furosemide 20 MG tablet 20 mg PO DAILY RF: 0 Hold Instructions: Resume on 01/22/21. mirabegron 25 MG tablet extended release 24 hr 25 mg PO DAILY RF: 0 apixaban 5 MG tablet 5 mg PO BID RF: 0 clopidogrel 75 mg tablet 75 mg PO DAILY RF: 0 promethazine 25 mg Tablet 25 mg PO BID PRN PRN (Reason: Nausea) RF: 0 escitalopram oxalate 20 mg Tablet 20 mg PO DAILY RF: 0 Advair HFA 230-21 mcg/actuation Hfa Aerosol Inhaler 2 puff INHALATION BID RF: 0 albuterol sulfate 1 PUFF HFA aerosol inhaler 2 puff IH Q4H PRN PRN (Reason: SOB &/or Wheezing ) RF: 0 fluticasone propionate 50 mcg/actuation [place],Suspension 1 spray INTRANASAL BID RF: 0 potassium chloride [K-Tab] 20 mEq tablet extended release 40 meq PO DAILY RF: 0 lamotrigine 150 mg tablet 150 mg PO DAILY RF: 0 metoprolol succinate 50 mg tablet extended release 24 hr 50 mg PO DAILY RF: 0 alendronate 70 mg tablet 70 mg PO QWEEK RF: 0 amlodipine 10 mg tablet 10 mg PO DAILY RF: 0 omeprazole 20 mg capsule,delayed release(DR/EC) 20 mg PO DAILY RF: 0 lisinopril 20 MG tablet 20 mg PO QHS RF: 0 baclofen 10 mg tablet 10 mg PO Q8H PRN PRN (Reason: pain) Qty: 0 RF: 0 tiotropium bromide 2.5 mcg/actuation mist 2 puff INHALATION DAILY Qty: 4 RF: 3 Primary Care Provider: Janel Taylor Referrals: Janel Taylor MD [Primary Care Provider] - Pop Yung MD [STAFF PHYSICIAN] - As Needed Disposition Disposition: Home, Self Care
== END 2021-05-26 16:12 | disposition home or self-care (01) ==
PROVIDERS: Emergency Provider Emergency Medicine; PCP Family Medicine; Visit Provider Emergency Medicine
DX: T84.020A Dislocation of internal right hip prosthesis, initial encounter (principal); F25.9 Schizoaffective disorder, unspecified; S73.006A Unspecified dislocation of unspecified hip, initial encounter; J44.9 Chronic obstructive pulmonary disease, unspecified; J43.9 Emphysema, unspecified; E66.01 Morbid (severe) obesity due to excess calories; E11.9 Type 2 diabetes mellitus without complications; Z79.4 Long term (current) use of insulin; Y83.1 Surgical operation with implant of artificial internal device as the cause of abnormal reaction of the patient, or of later complication, without mention of misadventure at the time of the procedure; I10 Essential (primary) hypertension; E78.00 Pure hypercholesterolemia, unspecified; K21.9 Gastro-esophageal reflux disease without esophagitis; G47.33 Obstructive sleep apnea (adult) (pediatric); F17.210 Nicotine dependence, cigarettes, uncomplicated; I25.2 Old myocardial infarction; Z99.81 Dependence on supplemental oxygen; Z79.01 Long term (current) use of anticoagulants; Z79.02 Long term (current) use of antithrombotics/antiplatelets
CPT/HCPCS: 73502; 99152; 99285; J7030

== ENCOUNTER 2021-06-13 16:32 | Observation (INO) | payer MEDICARE, MEDICAID, SELFPAY ==
[2021-06-13 16:33] VITALS: BP 140/77; PULSE 120; RESP 20; TEMP 36.5; O2SAT 96; BMI 32.8
--- NOTE | 2021-06-13 16:49 | CT_ITS ---
INDICATION: headache, confusion EXAMINATION: CT BRAIN - CT Head or Brain W/O Contrast Injection TECHNIQUE: Multiple axial images were obtained of the head without intravenous contrast. A radiation dose optimization technique was used for this scan. IV Contrast dosage and agent: None. COMPARISON: CT head 12/16/2019. FINDINGS: BRAIN PARENCHYMA: No intra- or extra-axial hemorrhage. No intracranial mass or mass effect. Hutchins/white matter differentiation is maintained and there is no blurring of the basal ganglia. There is no hyperdense vessel. There are multiple areas of increased hypodensity of the deep periventricular white matter suggesting chronic small vessel ischemic changes. Posterior fossa structures are unremarkable. CSF SPACES: Normal size ventricles. Minimal prominence subarachnoid spaces without posterior fossa crowding. This is likely within normal limits for the patient. No hydrocephalus. Basal cisterns are patent. CALVARIUM, SKULL BASE, PARANASAL SINUSES AND MASTOID AIR CELLS: Clear. No discrete lytic or blastic abnormalities. ORBITS: Both globes, extraocular muscles, optic nerves and retrobulbar fat appear unremarkable. ASPECTS Score for Acute Strokes: 10 CT/Brain/Head without Contrast IMPRESSION: No acute intracranial pathology. Chronic small vessel ischemic changes of the periventricular white matter, not significantly changed compared to prior exam from 12/16/2019. Electronically Signed: Fede Terrazas DO at 18:38 EDT ,
--- NOTE | 2021-06-13 16:50 | EDS_ITS ---
HPI History of Present Illness Chief Complaint: General Illness Detail of Chief Complaint: Confusion and headache and back pain Informant: patient Narrative Narrative: Patient presents to the emergency department brought in by her sister with some confusion today. Sister went over to change her dogs puppy pads and litter box and noted the patient seemed disoriented and confused. Patient is gone this way before when she is had a urinary tract infection. Patient was complaining of a headache and back pain and urinary frequency. Patient denies any abdominal pain or chest pain. She is not had a fever. She denies any falls or head injuries. She is on apixaban for history of blood clots. Patient states her headache came on gradually and she has been getting headaches intermittently. Prior similar symptoms: Yes PFSH COUNT INCLUDES THE [facility] Medical History (Updated 06/13/21 @ 20:[address] Shanel Barbosa, ) Anemia Asthma Benign essential hypertension BiPAP (biphasic positive airway pressure) dependence Bleeding tendency Chest pain Chronic cough Chronic narcotic use COPD (chronic obstructive pulmonary disease) Current use of insulin Delayed surgical wound healing Diabetes Emphysema of lung Gastroesophageal reflux disease High cholesterol Hip osteoarthritis History of pulmonary embolism History of stress test Hypertension Irregular heart beat Irritable bowel Morbid obesity Morbid obesity with BMI of 45.0-49.9, adult Myocardial infarct On home oxygen therapy RACHEL (obstructive sleep apnea) Pancreatitis Peptic ulcer Pulmonary hypertension Schizoaffective disorder Schizophrenia Sleep apnea Smoker Spinal stenosis of lumbar region at multiple levels Stage 2 moderate COPD by GOLD classification Thyroid nodule Tobacco abuse Ulcer Vitamin D deficiency Home Medications atorvastatin 80 mg PO QHS 08/22/15 [History Last Taken 03/15/21] pregabalin 75 mg PO TID 03/08/18 [History Last Taken 03/15/21] risperidone 4 mg PO QHS 03/08/18 [History Last Taken 03/15/21] trazodone 200 mg PO QHS PRN 03/08/18 [History Last Taken 03/15/21] furosemide 20 mg PO DAILY 11/20/18 [History Last Taken 03/15/21] mirabegron 25 mg PO DAILY 11/20/18 [History Last Taken 03/15/21] apixaban 5 mg PO BID 05/02/19 [History Last Taken 03/15/21] buspirone 30 mg tablet 30 mg PO BID tab 06/27/19 [History Last Taken 03/15/21] tiotropium bromide 2.5 mcg/actuation mist for inhalation 2 puff INHALATION DAILY #4 g 09/30/19 [Rx Last Taken 03/15/21] clopidogrel 75 mg PO DAILY 07/31/20 [History Last Taken 03/15/21] Advair HFA 2 puff INHALATION BID 11/14/20 [History Last Taken 03/15/21] albuterol sulfate 2 puff IH Q4H PRN PRN 11/14/20 [History Last Taken Unknown] escitalopram oxalate 20 mg PO DAILY 11/14/20 [History Last Taken 03/15/21] fluticasone propionate 1 spray INTRANASAL BID 11/14/20 [History Last Taken 03/15/21] promethazine 25 mg PO BID PRN PRN 11/14/20 [History Last Taken Unknown] potassium chloride [K-Tab] 40 meq PO DAILY 01/13/21 [History Last Taken 03/15/21] alendronate 70 mg PO QWEEK 05/21/21 [History Last Taken Unknown] amlodipine 10 mg PO DAILY 05/21/21 [History Last Taken Unknown] lamotrigine 150 mg PO DAILY 05/21/21 [History Last Taken Unknown] lisinopril 20 mg PO QHS 05/21/21 [History Last Taken Unknown] metoprolol succinate 50 mg PO DAILY 05/21/21 [History Last Taken Unknown] omeprazole 20 mg PO DAILY 05/21/21 [History Last Taken Unknown] baclofen 10 mg PO Q8H PRN PRN #0 tab 05/22/21 [Rx Last Taken Unknown] albuterol sulfate 2.5 mg INHALATION Q4H PRN #180 ml 05/25/21 [Rx Last Taken U nknown] hydrocodone-acetaminophen 1 tab PO Q4H PRN PRN 2 Days #10 tablet 05/26/21 [Rx Last Taken Unknown] doxycycline hyclate 100 mg tablet 100 mg PO BID #20 tab 06/04/21 [Rx Last Taken Unknown] prednisone 10 mg tablet 10 mg PO QDAY #30 tab 06/04/21 [Rx Last Taken Unknown] Allergy/AdvReac Type Severity Reaction Status Date / Time amoxicillin Allergy Itching Verified 06/13/21 16:33 erythromycin base Allergy Unknown Verified 06/13/21 16:33 methadone Allergy Itching Verified 06/13/21 16:33 metolazone Allergy Unknown Verified 06/13/21 16:33 Penicillins Allergy Hives Verified 06/13/21 16:33 Sulfa (Sulfonamide Allergy Hives Verified 06/13/21 16:33 Antibiotics) clarithromycin [From Biaxin] AdvReac Nausea Verified 06/13/21 16:33 ibuprofen AdvReac 3 BLEEDING Verified 06/13/21 16:33 ULCERS morphine AdvReac HEADACHE Verified 06/13/21 16:33 oxycodone [From Percocet] AdvReac Itching Verified 06/13/21 16:33 Family History Mother Heart disease Cancer ovarian Father Hypertension Arthritis Hyperlipemia Grandmother Breast cancer Heart disease Grandfather Heart disease Surgical History H/O cardiac catheterization H/O heart artery stent History of appendectomy history of carpal tunnel release left wrist History of carpal tunnel surgery of left wrist History of cholecystectomy History of gastric bypass History of PTCA History of right ankle surgery history of right hip surgery History of tonsillectomy Social History household members: none Smoking Status: Current every day smoker tobacco type: cigarettes Tobacco: How many years used: 39 alcohol intake: never substance use type: does not use caffeine: No what type of physical activity do you participate in: none ROS ROS ED Constitutional Constitutional ED: Reports systems reviewed and no addt'l complaints, except as documented; Denies body ache(s), change in weight or chills Eyes Eyes: Denies acute decrease in peripheral vision, change in vision, double vision or loss of vision ENT ENT ED: Reports none; Denies ear pain, lip swelling, loss taste/smell, neck pain, otalgia or sore throat Cardiovascular Cardiovascular: Reports none; Denies abdominal pain, chest pain with activity, leg edema, lightheadedness, palpitations, rapid heart rate or syncope Respiratory/Chest Respiratory/Chest: Reports none; Denies change in mental status, dry cough, dyspnea, hemoptysis, shortness of breath at rest or shortness of breath with exertion Gastrointestinal Gastrointestinal: Reports none; Denies abdominal pain, change in stool character, diarrhea, hematemesis, hematochezia, melena, rectal bleeding or vomiting Genitourinary Genitourinary ED: Reports none, dysuria and other Details: Urinary frequency ; Denies abdominal discomfort, anuria, genital pain or polyuria Musculoskeletal Musculoskeletal: Reports none and back pain; Denies arthralgias, difficulty walking, extremity pain, muscle weakness or myalgias Integumentary Reports none; Denies abscess or rash Neurologic Neurologic: Reports none, headache(s) and other Details: Confusion ; Denies abnormal gait, confusion, focal weakness, frequent falls, loss of vision, numbness, paresthesias, radicular pain, vertigo or weakness Psychiatric Psychiatric: Reports systems reviewed and no addt'l complaints, except as documented and none; Denies behavioral changes, confusion, difficulty concentrating, hallucinations, suicidal ideation, tactile hallucinations or visual hallucinations Endocrine Endocrinology: Denies none, cold intolerance, excessive sweating, fatigue or heat intolerance Hematologic/Lymphatic Hematologic/Lymphatic: Reports none; Denies anemia, easy bleeding or easy bruising Allergic/Immunologic Allergic/Immunologic ED: Denies as per HPI, none, lip swelling, mouth swelling, throat swelling, tongue swelling or hives EXAM Physical Exam Const Vital Signs: 06/13/21 16:33 06/13/21 16:58 06/13/21 20:28 Temperature 97.7 F L 97.7 F L 97.6 F L Temperature Source Temporal Temporal Temporal Pulse Rate 120 H 120 H 111 H Respiratory Rate 20 H 20 H 22 H Respiratory Effort Normal Non-Labored Respiratory Pattern Normal Blood Pressure 140/77 H 140/77 H 154/90 H Blood Pressure Mean 98 98 111 Pulse Ox 96 96 99 Oxygen Delivery Method Room Air Room Air Room Air Positive well nourished and well developed General Appearance ED: well developed and NAD HEENT Reports TM's clear and moist mucous membranes normocephalic and atraumatic; Negative for trauma or tenderness Tympanic Membrane ED: Yes TM's clear Eyes PERRL and EOMs intact bilaterally General Eye ED: Negative for pale conjunctiva or scleral icterus Neck no lymphadenopathy, supple and no JVD General: Negative for tenderness Chest Wall inspection of chest normal and palpation of chest normal Chest: Negative for tenderness Resp normal respiratory effort and clear to auscultation bilaterally Effort and Inspection: Negative for respiratory distress or pain with movement Auscultation: Negative for rhonchi, wheezes or diminished lung sounds Cardio regular rate, regular rhythm, S1 normal heart sound, S2 normal heart sound and no murmurs Peripheral Pulses: pulses 2+ throughout GI normal to inspection, nondistended, normoactive bowel sounds, soft to palpation, non-tender, non-distended and no masses Back/Spine no CVA tenderness and no thoracic nor lumbar tenderness Extremity normal to inspection General Extremety ED: Negative for edema General Extremity: Negative for edema Neuro oriented x3, CN's II-XII intact bilaterally, no sensory deficits noted and gait normal Neuro Narrative: Alert to person and place and year but not month Sensorium / Orientation: awake, alert, oriented to person, oriented to place and oriented to time Motor Exam: strength 5/5 throughout and strength abnormal Psych mental status grossly normal Skin no rashes or lesions noted and no wounds MDM MDM MDM Narrative Medical decision making narrative: IV line established on arrival. Patient placed on a cardiac care nurse. CBC with differential obtained showed an elevated white blood cell count of 18,000. Lactate was normal. Chemistries unremarkable. Urinalysis was able. Patient had a CT of the brain without contrast and this showed no acute disease process. CT scan of the abdomen pelvis was obtained given her back pain and urinary symptoms was concerned about kidney stone. No acute findings found on CT of the abdomen pelvis. At this point patient was still complaining of nausea she will be given Zofran 4 mg IV. She states he has been having some nausea and some vomiting over the last several days. Etiology of the leukocytosis is unclear. Given her confusion today and the leukocytosis I did obtain blood cultures. Case will be discussed with hospitalist evaluate patient for admission Lab Data Attestation: I reviewed the patient's lab results. Labs: Laboratory Results - last 24 hr 06/13/21 06/13/21 06/13/21 17:00 17:00 17:00 WBC 18.2 H RBC 4.54 Hgb 12.7 Hct 38.4 MCV 84.6 MCH 28.0 MCHC 33.1 RDW Std Deviation 53.3 H RDW Coeff of [place] 17.3 H Plt Count 414 MPV 9.0 Immature Gran % (Auto) 0.500 Neut % (Auto) 77.8 H Lymph % (Auto) 13.2 L [place] % (Auto) 7.6 Eos % (Auto) 0.4 Baso % (Auto) 0.5 Absolute Neuts (auto) 14.2 H Absolute Lymphs (auto) 2.40 Nucleated RBC % 0 Sodium 138 Potassium 3.8 Chloride 107 Carbon Dioxide 26.0 Anion Gap 5 BUN 11 Creatinine 0.62 Estim Creat Clear Calc 84.81 Est GFR (MDRD) Af Amer 129 Est GFR (MDRD) Non-Af 107 BUN/Creatinine Ratio 17.8 Glucose 129 H Lactic Acid 1.7 Calcium 10.3 H Urine Color Urine Clarity Urine pH Ur Specific [place] Urine Protein Urine Glucose (UA) Urine Ketones Urine Occult Blood Urine Nitrite Urine Bilirubin Urine Urobilinogen Ur Leukocyte Esterase Urine RBC Urine WBC Ur Squamous Epith Cells Urine Bacteria Urine Mucus 06/13/21 17:30 WBC RBC Hgb Hct MCV MCH MCHC RDW Std Deviation RDW Coeff of [place] Plt Count MPV Immature Gran % (Auto) Neut % (Auto) Lymph % (Auto) [place] % (Auto) Eos % (Auto) Baso % (Auto) Absolute Neuts (auto) Absolute Lymphs (auto) Nucleated RBC % Sodium Potassium Chloride Carbon Dioxide Anion Gap BUN Creatinine Estim Creat Clear Calc Est GFR (MDRD) Af Amer Est GFR (MDRD) Non-Af BUN/Creatinine Ratio Glucose Lactic Acid Calcium Urine Color Yellow Urine Clarity Clear Urine pH 6.5 Ur Specific [place] 1.010 Urine Protein 30 H Urine Glucose (UA) Normal Urine Ketones 5 H Urine Occult Blood Negative Urine Nitrite Negative Urine Bilirubin Negative Urine Urobilinogen 1 H Ur Leukocyte Esterase 25 H Urine RBC 0 SEEN Urine WBC 0-5 SEEN Ur Squamous Epith Cells 0-5 SEEN Urine Bacteria 0 SEEN Urine Mucus 3+ Radiography Diagnostic Testing: Clinical Impression(s) from Imaging Studies Brain CT 06/13/21 16:49 IMPRESSION: No acute intracranial pathology. Chronic small vessel ischemic changes of the periventricular white matter, not significantly changed compared to prior exam from 12/16/2019. Electronically Signed: Fede Terrazas DO at 18:38 EDT , Abdomen/Pelvis CT 06/13/21 17:52 IMPRESSION: No acute findings in the abdomen or pelvis. Individualized dose optimization techniques were used for this CT. at 2024 Reported and signed by: Maxwell Barajas MD Electronically Signed: Maxwell Barajas MD at 20:23 EDT , Discharge Plan Triage Chief Complaint: General Illness ED Provider: Shanel Barbosa Dx/Rx/DC Orders Clinical Impression: Encephalopathy, Leukocytosis, Acute confusion Prescriptions: No Action albuterol sulfate 2.5 mg /3 mL (0.083 %) solution for nebulization 2.5 mg inhalation Q4H PRN (Reason: Sob &/Or Wheezing) Qty: 180 RF: 3 atorvastatin 80 MG tablet 80 mg PO QHS RF: 0 risperidone 4 mg tablet 4 mg PO QHS RF: 0 trazodone 100 MG tablet 200 mg PO QHS PRN (Reason: Insomnia) RF: 0 pregabalin 75 MG capsule 75 mg PO TID RF: 0 buspirone 30 mg tablet 30 mg PO BID RF: 0 furosemide 20 MG tablet 20 mg PO DAILY RF: 0 Hold Instructions: Resume on 01/22/21. mirabegron 25 MG tablet extended release 24 hr 25 mg PO DAILY RF: 0 apixaban 5 MG tablet 5 mg PO BID RF: 0 clopidogrel 75 mg tablet 75 mg PO DAILY RF: 0 promethazine 25 mg Tablet 25 mg PO BID PRN PRN (Reason: Nausea) RF: 0 escitalopram oxalate 20 mg Tablet 20 mg PO DAILY RF: 0 Advair HFA 230-21 mcg/actuation Hfa Aerosol Inhaler 2 puff INHALATION BID RF: 0 albuterol sulfate 1 PUFF HFA aerosol inhaler 2 puff IH Q4H PRN PRN (Reason: SOB &/or Wheezing ) RF: 0 fluticasone propionate 50 mcg/actuation [place],Suspension 1 spray INTRANASAL BID RF: 0 potassium chloride [K-Tab] 20 mEq tablet extended release 40 meq PO DAILY RF: 0 lamotrigine 150 mg tablet 150 mg PO DAILY RF: 0 metoprolol succinate 50 mg tablet extended release 24 hr 50 mg PO DAILY RF: 0 alendronate 70 mg tablet 70 mg PO QWEEK RF: 0 amlodipine 10 mg tablet 10 mg PO DAILY RF: 0 omeprazole 20 mg capsule,delayed release(DR/EC) 20 mg PO DAILY RF: 0 lisinopril 20 MG tablet 20 mg PO QHS RF: 0 baclofen 10 mg tablet 10 mg PO Q8H PRN PRN (Reason: pain) Qty: 0 RF: 0 hydrocodone-acetaminophen [hydrocodone-acetaminophen] 1 TABLET tablet 1 tab PO Q4H PRN PRN (Reason: Pain) 2 Days Qty: 10 RF: 0 tiotropium bromide 2.5 mcg/actuation mist 2 puff INHALATION DAILY Qty: 4 RF: 3 doxycycline hyclate 100 mg tablet 100 mg PO BID Qty: 20 RF: 0 prednisone 10 mg tablet 10 mg PO QDAY Qty: 30 RF: 0 Primary Care Provider: Janel Taylor Referrals: Janel Taylor MD [Primary Care Provider] - Disposition Disposition: Acute Care Hospital [facility]
[2021-06-13 16:58] VITALS: BP 140/77; PULSE 120; RESP 20; TEMP 36.5; O2SAT 96
[2021-06-13] MEDS: 0.9% Normal Saline 1,000 ML 150 ML IV (17:16)
[2021-06-13 17:27] LABS: Absolute Neutrophil Count 14.2 X10^3/uL (2.0-7.7); Basophil# 0.09 X10^3/uL; Basophil% 0.5 % (0-1); Eosinophil# 0.07 X10^3/uL; Eosinophils% 0.4 % (0-5); Hematocrit 38.4 % (37-47); Hemoglobin 12.7 g/dL (12.0-15.0); Lymphocyte % 13.2 % (19-41); Mean Corp Hgb Conc 33.1 g/dL (32-36); Mean Corpuscular Volume 84.6 fL (81-99); Monocyte# 1.38 X10^3/uL; Monocyte% 7.6 % (0-10); NRBC Flagged by Analyzer 0 % (0-5); Neutrophil % 77.8 % (47-70); Platelet Count 414 K/mm3 (150-450); RBC Distribution Width CV 17.3 % (11.6-14.6); RBC Distribution Width SD 53.3 fl (35.1-43.9); Red Blood Count 4.54 M/mm3 (4.2-5.4); White Blood Count 18.2 K/mm3 (4.4-11.0)
[2021-06-13 17:35] LABS: Bacteria 0 SEEN /hpf (None Seen); Red Blood Cells-Urine 0 SEEN /hpf (0-5)
[2021-06-13 17:40] LABS: Anion Gap 5 (5-15); BUN 11 mg/dL (7-18); BUN/Creat Ratio 17.8 RATIO (10-20); Calcium,Total 10.3 mg/dL (8.5-10.1); Chloride 107 mmol/L (98-107); Creatinine, Serum 0.62 mg/dL (0.55-1.02); EST Glomerular Filtration Rate 107 mL/min (>60); Est Glom Filt Rate - Afr Amer 129 mL/min (>60); Estimated Creatinine Clearance 84.81 ml/min; Glucose 129 mg/dL (74-106); Potassium 3.8 mmol/L (3.5-5.1); Sodium Level 138 mmol/L (136-145)
[2021-06-13 17:42] LABS: Color, Urine Yellow (Yellow); Glucose, Dipstick Normal (Normal); Ketone-Dipstick 5 mg/dl (Negative); Leukocyte Esterase-Dipstick 25 /ul (Negative); Nitrite-Dipstick Negative (Negative); Occult Blood-Urine Negative /ul (Negative); Protein-Dipstick 30 mg/dl (Negative); Urine Bilirubin Dipstick Negative (Negative); Urine Clarity Clear (Clear); Urine Urobilinogen 1 mg/dl (Normal); Urine pH 6.5 (5.0 - 8.0)
[2021-06-13 17:49] LABS: Mucous, Urine 3+ /hpf (<or=2+); Squamous Epithelial Cells - UA 0-5 SEEN /hpf (5-10); White Blood Cells 0-5 SEEN /hpf (0-5)
--- NOTE | 2021-06-13 17:52 | CT_ITS ---
HISTORY: flank pain EXAMINATION: CT Abdomen And Pelvis W/O Contrast Injection TECHNIQUE: Multiple axial images were obtained of the abdomen and pelvis without oral or IV contrast. A radiation dose optimization technique was used for this scan. IV Contrast dosage and agent: None. Oral contrast: None. COMPARISON: 02/16/21 FINDINGS: LOWER CHEST: Lung bases are clear. No cardiomegaly or pericardial effusion. LIVER: Homogeneous enlargement to 20 cm. No focal mass. GALLBLADDER AND BILIARY TREE: Cholecystectomy. No intra- or extrahepatic biliary ductal dilation. PANCREAS: No focal cystic or solid mass. SPLEEN: Normal size without focal cystic or solid mass. ADRENAL GLANDS: No nodules. KIDNEYS AND URETERS: Ptosis right kidney. No hydronephrosis or nephrolithiasis. PERITONEUM: No ascites or free air. BOWEL: No evidence of acute appendicitis. No stomach or bowel distension. No focal inflammatory bowel wall changes. LYMPH NODES: No enlarged mesenteric or retroperitoneal lymph nodes. VESSELS: Aorta is non-dilated. URINARY BLADDER: Unremarkable. REPRODUCTIVE ORGANS: No pelvic masses. ABDOMINAL WALL: Stable prior ventral hernia repair. BONES: Stable mild chronic wedge deformity of L1. Mild compression deformity of T11 since the prior study. CT/Abdomen/Pelvis without Cont IMPRESSION: No acute findings in the abdomen or pelvis. Individualized dose optimization techniques were used for this CT. at 2024 Reported and signed by: Maxwell Barajas MD Electronically Signed: Maxwell Barajas MD at 20:23 EDT ,
[2021-06-13 17:53] LABS: Lactic Acid 1.7 mmol/L (0.4-1.9)
[2021-06-13] MEDS: Ondansetron 4 MG/2 ML Vial IV (20:14)
[2021-06-13 20:28] VITALS: BP 154/90; PULSE 111; RESP 22; TEMP 36.4; O2SAT 99
--- NOTE | 2021-06-13 20:38 | ED.RN ---
PT DOES NOT KNOW HOME MEDS.
--- NOTE | 2021-06-13 20:43 | PCM.HP.STD ---
HPI - General General Date of Admission: 06/13/21 Date of Service: 06/13/21 Chief Complaint: Confusion. HPI Narrative The patient is a 55 y/o F w/ PMHx: Chronic anemia/iron deficiency, Asthma/COPD, HTN, HLD, Obesity s/p gastic bypass, Chronic COPD, GERD/Hx PUD, Hx PE, CAD s/p PCI, Diabetes mellitus type II, Schizoaffective disorder/Anxiety and Depression, Tobacco use, Chronic back pain, RACHEL, Tobacco use who presents to the [facility] ED on 06/13/21 with history of several days of fatigue, malaise, more harsh cough than her baseline in addition to occasional nausea, emesis and approximately 2 loose stools per day with recent antibiotic and steroid outpatient treatment for bronchitis but feels as though she is not improved markedly with urinary frequency as well as lumbar discomfort and concerning confusion per family. She denies any recent fevers or chills specifically. She notes that she does have ill contacts. She states she has been vaccinated against COVID. Patient does report a history of intermittent headaches. Of note patient was recently seen in the emergency room 05/26/2021 secondary to hip dislocation which was reduced however patient was of note sent home on a short regimen of narcotic therapy. In the ED upon evaluation patient appears ill and has significant issue with recalling events. Work-up in the ED included T 97.7, heart rate 120, BP 140/77, respiratory rate 20, 96% on room air, CBC with WC 18.2, hemoglobin 12.7, platelet 414 with left shift, BMP with glucose 129 otherwise not marked appearing, lactic acid 1.7, urinalysis with no obvious evidence of UTI and no significant marked evidence of dehydration, CT of the brain with no acute intracranial pathology with chronic small vessel ischemic changes of the periventricular white matter unchanged from 12/16/2019, CT abdomen and pelvis with no acute intra-abdominal or pelvic findings, Bld Cx pending per ED. In the ED patient ministered normal saline. [facility] Medical History (Updated 06/13/21 @ 20:[address] Shanel Barbosa, ) Anemia Asthma Benign essential hypertension BiPAP (biphasic positive airway pressure) dependence Bleeding tendency Chest pain Chronic cough Chronic narcotic use COPD (chronic obstructive pulmonary disease) Current use of insulin Delayed surgical wound healing Diabetes Emphysema of lung Gastroesophageal reflux disease High cholesterol Hip osteoarthritis History of pulmonary embolism History of stress test Hypertension Irregular heart beat Irritable bowel Morbid obesity Morbid obesity with BMI of 45.0-49.9, adult Myocardial infarct On home oxygen therapy RACHEL (obstructive sleep apnea) Pancreatitis Peptic ulcer Pulmonary hypertension Schizoaffective disorder Schizophrenia Sleep apnea Smoker Spinal stenosis of lumbar region at multiple levels Stage 2 moderate COPD by GOLD classification Thyroid nodule Tobacco abuse Ulcer Vitamin D deficiency Home Medications atorvastatin 80 mg PO QHS 08/22/15 [History Last Taken 03/15/21] pregabalin 75 mg PO TID 03/08/18 [History Last Taken 03/15/21] risperidone 4 mg PO QHS 03/08/18 [History Last Taken 03/15/21] trazodone 200 mg PO QHS PRN 03/08/18 [History Last Taken 03/15/21] furosemide 20 mg PO DAILY 11/20/18 [History Last Taken 03/15/21] mirabegron 25 mg PO DAILY 11/20/18 [History Last Taken 03/15/21] apixaban 5 mg PO BID 05/02/19 [History Last Taken 03/15/21] buspirone 30 mg tablet 30 mg PO BID tab 06/27/19 [History Last Taken 03/15/21] tiotropium bromide 2.5 mcg/actuation mist for inhalation 2 puff INHALATION DAILY #4 g 09/30/19 [Rx Last Taken 03/15/21] clopidogrel 75 mg PO DAILY 07/31/20 [History Last Taken 03/15/21] Advair HFA 2 puff INHALATION BID 11/14/20 [History Last Taken 03/15/21] albuterol sulfate 2 puff IH Q4H PRN PRN 11/14/20 [History Last Taken Unknown] escitalopram oxalate 20 mg PO DAILY 11/14/20 [History Last Taken 03/15/21] fluticasone propionate 1 spray INTRANASAL BID 11/14/20 [History Last Taken 03/15/21] promethazine 25 mg PO BID PRN PRN 11/14/20 [History Last Taken Unknown] potassium chloride [K-Tab] 40 meq PO DAILY 01/13/21 [History Last Taken 03/15/21] alendronate 70 mg PO QWEEK 05/21/21 [History Last Taken Unknown] amlodipine 10 mg PO DAILY 05/21/21 [History Last Taken Unknown] lamotrigine 150 mg PO DAILY 05/21/21 [History Last Taken Unknown] lisinopril 20 mg PO QHS 05/21/21 [History Last Taken Unknown] metoprolol succinate 50 mg PO DAILY 05/21/21 [History Last Taken Unknown] omeprazole 20 mg PO DAILY 05/21/21 [History Last Taken Unknown] baclofen 10 mg PO Q8H PRN PRN #0 tab 05/22/21 [Rx Last Taken Unknown] albuterol sulfate 2.5 mg INHALATION Q4H PRN #180 ml 05/25/21 [Rx Last Taken Unknown] hydrocodone-acetaminophen 1 tab PO Q4H PRN PRN 2 Days #10 tablet 05/26/21 [Rx Last Taken Unknown] doxycycline hyclate 100 mg tablet 100 mg PO BID #20 tab 06/04/21 [Rx Last Taken Unknown] prednisone 10 mg tablet 10 mg PO QDAY #30 tab 06/04/21 [Rx Last Taken Unknown] Allergy/AdvReac Type Severity Reaction Status Date / Time amoxicillin Allergy Itching Verified 06/13/21 16:33 erythromycin base Allergy Unknown Verified 06/13/21 16:33 methadone Allergy Itching Verified 06/13/21 16:33 metolazone Allergy Unknown Verified 06/13/21 16:33 Penicillins Allergy Hives Verified 06/13/21 16:33 Sulfa (Sulfonamide Allergy Hives Verified 06/13/21 16:33 Antibiotics) clarithromycin [From Biaxin] AdvReac Nausea Verified 06/13/21 16:33 ibuprofen AdvReac 3 BLEEDING Verified 06/13/21 16:33 ULCERS morphine AdvReac HEADACHE Verified 06/13/21 16:33 oxycodone [From Percocet] AdvReac Itching Verified 06/13/21 16:33 Family History (Reviewed 05/25/21 @ 13:35 by Rosanna Hampton EDUCATION SALES CONSULTANT, EDUCATION SALES CONSULTANT-C) Mother Heart disease Cancer ovarian Father Hypertension Arthritis Hyperlipemia Grandmother Breast cancer Heart disease Grandfather Heart disease Surgical History H/O cardiac catheterization H/O heart artery stent History of appendectomy history of carpal tunnel release left wrist History of carpal tunnel surgery of left wrist History of cholecystectomy History of gastric bypass History of PTCA History of right ankle surgery history of right hip surgery History of tonsillectomy Social History (Updated 06/13/21 @ 21:[address] Monica Barragan MD) household members: none Smoking Status: Current every day smoker tobacco type: cigarettes Smoking packs per day: 1 Smoking cigarettes per day: 20.0 Years smoked: 39 Smoking pack-years: 39.00 alcohol intake: never substance use type: does not use caffeine: No what type of physical activity do you participate in: none ROS ROS Narrative Admission Review of Systems: CONSTITUTIONAL: No weight loss, fever, chills, + weakness or fatigue. HEENT: + Cough, congestion, headaches, rhinorrhea, sore throat. Eyes: No visual loss, blurred vision, double vision or yellow sclerae. Ears, Nose, Throat: No hearing loss, sneezing. SKIN: No rash or itching, lesions, wounds. CARDIOVASCULAR: No chest pain, chest pressure or chest discomfort, palpitations, edema, orthopnea, syncopal events. RESPIRATORY:+ shortness of breath, cough without marked sputum, occasional wheezing, No hemoptysis. GASTROINTESTINAL: + Anorexia, nausea, vomiting, diarrhea, back/flank disocmfort, No abdominal pain, melena, BRBPR. GENITOURINARY: + Frequency, No dysuria, urgency or retention. NEUROLOGICAL: + Headache, No dizziness, syncope, paralysis, ataxia, numbness or tingling in the extremities, focal weakness, change in bowel or bladder control, seizure. MUSCULOSKELETAL: + muscle, back pain, joint pain or stiffness. HEMATOLOGIC: + anemia, bleeding or bruising. LYMPHATICS: No enlarged nodes. No history of splenectomy. PSYCHIATRIC: + history of depression or anxiety. ENDOCRINOLOGIC: No reports of sweating, cold or heat intolerance. No polyuria or polydipsia. ALLERGIES: + history of asthma, hives, eczema or rhinitis. Vital Signs Vital Signs Vital Signs: 06/13/21 16:33 06/13/21 16:58 06/13/21 20:28 Temperature 97.7 F L 97.7 F L 97.6 F L Temperature Source Temporal Temporal Temporal Pulse Rate 120 H 120 H 111 H Respiratory Rate 20 H 20 H 22 H Respiratory Effort Normal Non-Labored Respiratory Pattern Normal Blood Pressure 140/77 H 140/77 H 154/90 H Blood Pressure Mean 98 98 111 Pulse Ox 96 96 99 Oxygen Delivery Method Room Air Room Air Room Air Weight Weight: 185 lb Body Mass Index (BMI) 32.8 Physical Exam Narrative Physical Examination: General: Awake, alert, oriented to self and place and recent events to some degree but confused with specific questions and cannot recall people, appears significantly debilitated with memory, cooperative, fatigued and ill appearing. Skin: Normal color, normal turgor, no icterus, no cyanosis. HEENT: AT/NC, EOMI, PERRLA, dry MM, irritation of the nares, rhinorrhea evident, no carotid bruits or JVD noted. Lungs: Diminished, > bases, moderate effort, occasional end expiratory wheezing, no rales or ronchi. Heart: Currently regular rate and rhythm; no gallop, rub audible. Abdomen: Soft, obesity, NTTP, ND, mildly hyperactive BS, no HSM. Extremities: No cyanosis, clubbing, or edema. Neurological: Patient awake, alert, oriented as noted, cognitive function not baseline intact; pupils equally reactive to light and accommodation, cranial nerves grossly normal, moving all 4 extremities, no focal deficits, strength moderately to severely globally decreased. Psychiatric: Affect appears fatigued, ill appearing, no acute evidence of depressive or anxiety feelings. Results Lab / Micro Data Result Diagrams: 06/13/21 17:00 06/13/21 17:00 Labs: Laboratory Results - last 24 hr 06/13/21 17:00: WBC 18.2 H, RBC 4.54, Hgb 12.7, Hct 38.4, MCV 84.6, MCH 28.0, MCHC 33.1, RDW Std Deviation 53.3 H, RDW Coeff of Kaycee 17.3 H, Plt Count 414, MPV 9.0, Immature Gran % (Auto) 0.500, Neut % (Auto) 77.8 H, Lymph % (Auto) 13.2 L, Graves % (Auto) 7.6, Eos % (Auto) 0.4, Baso % (Auto) 0.5, Absolute Neuts (auto) 14.2 H, Absolute Lymphs (auto) 2.40, Nucleated RBC % 0 06/13/21 17:00: Sodium 138, Potassium 3.8, Chloride 107, Carbon Dioxide 26.0, Anion Gap 5, BUN 11, Creatinine 0.62, Estim Creat Clear Calc 84.81, Est GFR (MDRD) Af Amer 129, Est GFR (MDRD) Non-Af 107, BUN/Creatinine Ratio 17.8, Glucose 129 H, Calcium 10.3 H 06/13/21 17:00: Lactic Acid 1.7 06/13/21 17:30: Urine Color Yellow, Urine Clarity Clear, Urine pH 6.5, Ur Specific Fowler 1.010, Urine Protein 30 H, Urine Glucose (UA) Normal, Urine Ketones 5 H, Urine Occult Blood Negative, Urine Nitrite Negative, Urine Bilirubin Negative, Urine Urobilinogen 1 H, Ur Leukocyte Esterase 25 H, Urine RBC 0 SEEN, Urine WBC 0-5 SEEN, Ur Squamous Epith Cells 0-5 SEEN, Urine Bacteria 0 SEEN, Urine Mucus 3+ Radiology Impression Brain CT 06/13/21 16:49 IMPRESSION: No acute intracranial pathology. Chronic small vessel ischemic changes of the periventricular white matter, not significantly changed compared to prior exam from 12/16/2019. Electronically Signed: Fede Terrazas DO at 18:38 EDT , Abdomen/Pelvis CT 06/13/21 17:52 IMPRESSION: No acute findings in the abdomen or pelvis. Individualized dose optimization techniques were used for this CT. at 2024 Reported and signed by: Maxwell Barajas MD Electronically Signed: Maxwell Barajas MD at 20:23 EDT , Assessment & Plan Assessment/Plan (1) Encephalopathy: (2) Acute confusion: PLAN: The patient is a 55 y/o F w/ PMHx: Chronic anemia/iron deficiency, Asthma/COPD, HTN, HLD, Obesity s/p gastic bypass, Chronic COPD, GERD/Hx PUD, Hx PE, CAD s/p PCI, Diabetes mellitus type II, Schizoaffective disorder/Anxiety and Depression, Tobacco use, Chronic back pain, RACHEL, Tobacco use who presents to the [facility] ED on 06/13/21 with history of several days of fatigue, malaise, more harsh cough than her baseline in addition to occasional nausea, emesis and approximately 2 loose stools per day with recent antibiotic outpatient treatment for bronchitis but feels as though she is not improved markedly with urinary frequency as well as lumbar discomfort and concerning confusion per family. #1. Acute Encephalopathy/Confusion, Suspect primarily Infectious related; however, recall significantly reduced therefore to be cautious given co-morbidities evaluate for TIA/CVA, Potentially multifactorial including mediations: Will admit to PCU to be cautous, will obtain MRI Brain, MRA Head and carotid US neck, ECHO, PT/OT/Speech/Nutrition evaluation per protocol. Will consult Neurology for evaluation once further work-up and imaging obtained. Will allow permissive HTN to be cautious but restart regimen once timeline appropriate or if MRI unremarkable, maintain on eliquis, plavix, statin w/ AM FLP, fall precautions. Mag, TSH, HgbA1c requested. UDS requested. Hepatic profile and NH requested. Respiratory viral panel and COVID also pending. CXR pending. #2. Leukocytosis (possibly related to recent steroids), unclear etiology but N/V/D, recent bronchitis likely etiology: CT abdomen and pelvis with no acute findings, lower lung bases in this with no acute findings and no evidence of any pericardial effusion or cardiomegaly, will obtain chest x-ray to be cautious as well as respiratory viral panel and COVID testing. ED urinalysis with no marked evidence of any UTI, will obtain procalcitonin, hydrate and repeat CBC in AM. Hepatic profile requested. Stool cultures, cdiff also requested. #3. Chronic Asthma/COPD w/ allergic rhinitis complicated by recent Acute Bronchitis (treated with Abx therapy and steroids): Will maintain on oxygen with wean as tolerated to room air, hold home inhalers and in the interim transition to ATC duonebs, PRN albuterol, continue home Singulair as well as fluticasone regimen, HOB, IS parameters. #4. Chronic anemia/iron deficiency: Admission hemoglobin 12.7, baseline most recently 13-14, stable, continue iron supplementation, trend CBC. #5. Diabetes mellitus type II with neuropathy: Hold oral home regimen, ADA diet, accu checks w/ ISS, continue patient home pregabalin regimen, HgBA1c pending. #6. CAD: Status post PCI x 5, will continue Plavix, apixaban, statin therapy, temporary permissive HTN. #7. Hypertension: Temporary permissive HTN, PRN agents per stroke protocol. #8. Hyperlipidemia: We will continue patient on statin therapy. FLP in AM. #9. History pulmonary embolism: We will continue patient home apixaban regimen, SCDs. #10. GERD with history of peptic ulcer disease: We will continue patient home PPI. #11. Schizoaffective disorder/Anxiety and Depression: We will continue patient home nightly trazodone, BuSpar, risperidone, lamotrigine, escitalopram regimen however will hold for sedation especially given hypotensive presentation. #12. Tobacco Abuse: Encourage cessation, inpatient consultation per RT, NR if desired. #13. Chronic back pain: Given confusion will be cautious with narcotics and baclofen but will judiciously continue to avoid withdrawal. #14. RACHEL: BiPAP nightly. #15. DVT prophylaxis: SCDs, continue home apixaban regimen. Charges/Coding Visit Charges OBSV E&M: 12131 Initial observation care L3
[2021-06-13 21:16] VITALS: BP 171/68; PULSE 108; RESP 22; TEMP 36.6; O2SAT 97
[2021-06-13 21:27] LABS: AST(SGOT) 23 U/L (15-37); Alanine Aminotransfer ALT/SGPT 29 U/L (13-56); Albumin, Serum 3.2 g/dL (3.2-5.0); Alkaline Phosphatase 124 U/L (45-117); Bilirubin, Direct 0.22 mg/dL (0.00-0.30); Globulin 3.4 g/dL (2.2-4.2); Magnesium 1.8 mg/dL (1.6-2.6); Protein, Total 6.6 g/dL (6.4-8.2)
[2021-06-13 21:28] VITALS: PULSE 86
[2021-06-13 21:30] VITALS: BMI 35.2
[2021-06-13 21:38] LABS: Ammonia < 10.0 umol/L (11-32)
[2021-06-13 21:41] LABS: Procalcitonin 0.08 ng/mL (0.00-0.09)
--- NOTE | 2021-06-13 21:42 | MRI_ITS ---
EXAM: MR HEAD WITHOUT INTRAVENOUS CONTRAST : 1965 CLINICAL INDICATION: CVA, confusion TECHNIQUE: Multiplanar and multisequence MR images of the brain were obtained without intravenous contrast. This report was created using [employer] report generation technology. COMPARISON: CT brain June 13, 2021 FINDINGS: BRAIN AND EXTRA-AXIAL SPACES: Multiple foci of increased T2 signal intensity within the peripheral cerebral white matter consistent with chronic microvascular disease. No intra- or extra-axial hemorrhage. No evidence of acute infarct. No intracranial mass or mass effect. There is preservation of the connelly/white matter interface. Posterior fossa structures are unremarkable. Ventricles are appropriate for age. No hydrocephalus. Basal cisterns are patent. SELLA: Unremarkable. Normal sella turcica, pituitary gland, infundibular stalk, optic chiasm and hypothalamus. AUDITORY SYSTEM: Unremarkable. The internal auditory canals are patent. BONES/JOINTS: Unremarkable. No discrete lytic or blastic abnormalities. SINUSES: Unremarkable as visualized. Clear. MASTOID AIR CELLS: Unremarkable as visualized. Clear. ORBITS: Unremarkable as visualized. Both globes, extraocular muscles, optic nerves and retrobulbar fat appear unremarkable. VASCULATURE: Unremarkable as visualized. Normal flow voids in the major intracranial circulation. MRI/Brain without Contrast IMPRESSION: 1. No evidence of acute ischemia. 2. Chronic microvascular ischemic changes. at 1039 Reported and signed by: Clif Haywood MD Electronically Signed: Clif Haywood MD at 10:38 EDT ,
--- NOTE | 2021-06-13 21:42 | CDU_ITS ---
Reason For Study: CVA Rt. Velocities/BP Lt. Velocities/BP Prox CCA 121.4/18.2 cm/sec. Prox CCA 119.3/26.1 cm/sec. Mid CCA 76.5/29.8 cm/sec. Mid CCA 88.2/29.8 cm/sec. Dist CCA 61.8/27.4 cm/sec. Dist CCA 93.7/33.4 cm/sec. Prox ICA 67.9/32.3 cm/sec. Prox ICA 70/22.5 cm/sec. Mid ICA 82.6/37.2 cm/sec. Mid ICA 108.3/37.1 cm/sec. Dist ICA 81.4/33.5 cm/sec. Dist ICA 93.7/37.1 cm/sec. Rt. ICA/CCA = 1.08. Lt. ICA/CCA = 1.16. Prox ECA 92.5/21.2 cm/sec. Prox ECA 90/17 cm/sec. Rt. Vert. 43.3/17.6 cm/sec. Lt. Vert. 70/22.5 cm/sec. Right Extracranial There is homogeneous, smooth atherosclerotic plaque noted in the right common carotid artery. There is heterogeneous, irregular atherosclerotic plaque noted in the right internal carotid artery. There is intimal thickening but no significant atherosclerotic plaque noted in the right external carotid artery. Abnormal waveform morphology noted in the right vertebral artery. Left Extracranial There is heterogeneous, irregular atherosclerotic plaque noted in the left common carotid artery. There is heterogeneous, irregular atherosclerotic plaque noted in the left internal carotid artery. There is heterogeneous, smooth atherosclerotic plaque noted in the left external carotid artery. Antegrade flow is noted in the left vertebral artery. Procedure Carotid Duplex 71027. This is a Carotid Duplex examination using B-mode, color flow and specral Doppler. Exam performed in department. VL/Carotid Duplex Ultrasound Interpretation Summary Minimal calcific plaque at the proximal right internal carotid artery with less than 50% stenosis Less than 50% stenosis right external carotid artery Irregular calcific plaque of the distal left common carotid artery and proximal left internal carotid artery with less than 50% stenosis of left internal carotid artery Less than 50% stenosis left external carotid artery Patent and antegrade bilateral vertebrals Ordering Physician: Monica Barragan Referring Physician: Janel Taylor Performed By: Bianca Loza RVT
--- NOTE | 2021-06-13 21:42 | ECHOCS_ITS ---
Reason For Study: CVA Procedure This was a 2D Doppler, Color Flow transthoracic echocardiogram. Technically difficult study due to patients body habitus. Contrast injection and bubble study performed. Exam performed portable in patient room. Left Ventricle Normal LV size. Left ventricular systolic function is normal. The estimated ejection fraction is 75 %. Stage 1 diastolic dysfunction. No regional wall motion abnormalities noted. Right Ventricle Normal RV size. Normal systolic function. Atria Normal left atrium. Normal right atrium. Bubble contrast study negative for right to left interatrial shunt. Mitral Valve Normal mitral valve. Tricuspid Valve Normal tricuspid valve. Aortic Valve Normal aortic valve. Trisinus/trileaflet aortic valve. Trivial aortic valve insufficiency. Pulmonic Valve Normal pulmonic valve. Great Vessels Normal aortic root. The pulmonary artery is normal size. Normal inferior vena cava. Pericardium/Pleural No pericardial effusion. Medication Diluted definity 2ml given slow IV push to enhance endocardial definition. Performed a rapid injection of agitated mix of 9 cc saline and 1cc air to assess for atrial septal defect. MMode/2D Measurements & Calculations LVIDd: 3.5 cm IVSd: 1.2 cm LAV(MOD-bp): 46.0 ml LVIDs: 2.7 cm LVPWd: 1.1 cm RVDd: 3.2 cm FS: 23.5 % LAV(MOD-bp) Indexed: 23.8 ml/m2 LAV(MOD-sp2): 41.3 ml LAV(MOD-sp4): 47.4 ml LA A4 area: 19.1 cm2 RA A4 area: 17.6 cm2 Time Measurements MV dec time: 0.29 sec Doppler Measurements & Calculations MV E max natan: 78.4 cm/sec Lat Peak E' Natan: 6.8 cm/sec Med Peak E' Natan: 6.8 cm/sec MV A max natan: 153.1 cm/sec E/E' lat: 11.6 E/E' med: 11.6 MV E/A: 0.51 MV V2 max: 183.0 cm/sec MV P1/2t max natan: 100.6 cm/sec Ao V2 max: 162.6 cm/sec MV max P.4 mmHg MV P1/2t: 49.9 msec Ao max P.6 mmHg MV V2 mean: 87.7 cm/sec MV mean P.9 mmHg MV dec slope: 590.7 cm/sec2 MV V2 VTI: 28.0 cm MVA(P1/2t): 4.4 cm2 AI max natan: 382.0 cm/sec LV V1 max: 160.7 cm/sec PA V2 max: 127.3 cm/sec AI max P.4 mmHg LV V1 max P.3 mmHg AI dec slope: 369.6 cm/sec2 AI P1/2t: 302.7 msec ECHO/Echo Complete W/ Contrast Interpretation Summary Normal LV size. Left ventricular systolic function is normal. The estimated ejection fraction is 75 %. Bubble contrast study negative for right to left interatrial shunt. Stage 1 diastolic dysfunction. Contrast injection was performed. Ordering Physician: Monica Barragan Referring Physician: IRWIN CHAVEZ Performed By: Harry Vyas RCS
--- NOTE | 2021-06-13 21:42 | MRI_ITS ---
History: CVA,confusion EXAMINATION: MRA Head W/O Contrast TECHNIQUE: Routine [place] of [place]/brain 3D time of flight MR angiogram protocol was performed without gadolinium. 3D reconstructions were reviewed. IV Contrast dosage and agent: None. COMPARISON: None FINDINGS: --Anterior circulation: ICAs: No flow limiting stenosis of the intracranial/visualized segments. ACAs: No flow limiting stenosis in the visualized segments. ACOM: Not present MCAs: No flow limiting stenosis in the visualized segments. --Posterior circulation: PCOMs: Not present county engineer: No flow limiting stenosis in the visualized segments BASILAR ARTERY: No flow limiting stenosis. VERTEBRAL ARTERIES: No flow limiting stenosis of the intracranial/visualized segments. Right vertebral artery is congenitally smaller than the left vertebral artery. No evidence of intracranial aneurysm or vascular malformation. MRI/MRA Head ONLY without Contrast IMPRESSION: No flow-limiting stenosis or aneurysm at 1036 Reported and signed by: Clif Haywood MD Electronically Signed: Clif Haywood MD at 10:35 EDT ,
--- NOTE | 2021-06-13 22:08 | RAD_ITS ---
HISTORY: Cough, dyspnea EXAMINATION/TECHNIQUE: XR Chest 2 Views: 2 views COMPARISON: 05/21/2009 FINDINGS: LINES/DEVICES: None. LUNGS: No pulmonary consolidation, mass, or edema. No pleural effusion or pneumothorax. MEDIASTINUM AND CARDIOVASCULAR STRUCTURES: Cardiac silhouette not enlarged. Central airways and mediastinal contour are unremarkable. BONES AND SOFT TISSUES: No acute bony abnormalities. RAD/Chest PA and Lateral IMPRESSION: No radiographic evidence of acute cardiopulmonary disease. at 0043 Reported and signed by: Maxwell Barajas MD Electronically Signed: Maxwell Barajas MD at 0:42 EDT ,
[2021-06-13 22:49] VITALS: PULSE 113; RESP 12; RESP 18; O2SAT 94
[2021-06-13 23:19] LABS: Amphetamine Urine VISTA NEGATIVE (<1000 ng/mL); Barbiturate Urine VISTA NEGATIVE (< 200 ng/mL); Benzodiazepine Urine VISTA NEGATIVE (< 200 ng/mL); Cocaine Urine VISTA NEGATIVE (< 300 ng/mL); Ecstacy Urine VISTA POSITIVE (< 500 ng/mL); Methadone Urine VISTA NEGATIVE (< 300 ng/mL); PCP Urine VISTA NEGATIVE (< 25 ng/mL); THC Urine VISTA NEGATIVE (< 50 ng/mL); Vista UDS pH Range 6
[2021-06-13] MEDS: Fluticasone 0.05% 1 SPRAY NASAL.SRY NASAL (23:46)
[2021-06-13] MEDS: APIXABAN 5 MG TABLET PO (23:47)
[2021-06-13] MEDS: RisperiDONE 2 MG Tablet 4 MG PO (23:47)
[2021-06-13] MEDS: busPIRone 15 MG TABLET 30 MG PO (23:47)
[2021-06-13] MEDS: Atorvastatin Calcium 80 MG Tablet PO (23:47)
[2021-06-13] MEDS: 0.9% Normal Saline 1,000 ML 125 ML IV (23:48)
[2021-06-13] MEDS: Acetaminophen 325 MG Tablet 650 MG PO (23:54)
[2021-06-13] MEDS: Pregabalin 75 MG Capsule PO (23:54)
[2021-06-14] VITALS (10 sets, daily range): BP systolic 131–158; BP diastolic 69–106; PULSE 86–117; RESP 12–20; TEMP 36.5–37; O2SAT 87–98; BMI 35.2
[2021-06-14 00:16] LABS: Bedside Glucose 101 mg/dL (74-106)
[2021-06-14 06:26] LABS: Absolute Lymphocyte Count 2.42 X10^3/uL (0.83-4.51); Absolute Neutrophil Count 6.7 X10^3/uL (2.0-7.7); Basophil# 0.08 X10^3/uL; Basophil% 0.8 % (0-1); Eosinophil# 0.26 X10^3/uL; Eosinophils% 2.5 % (0-5); Hematocrit 35.5 % (37-47); Hemoglobin 11.4 g/dL (12.0-15.0); Lymphocyte # 2.42 X10^3/ul (0.83-4.51); Lymphocyte % 23.3 % (19-41); Mean Corp Hgb Conc 32.1 g/dL (32-36); Mean Corpuscular Hgb 27.5 pg (27.0-32.0); Mean Corpuscular Volume 85.7 fL (81-99); Mean Platelet Vol. 9.1 fl (6.2-12.0); Monocyte# 0.86 X10^3/uL; Monocyte% 8.3 % (0-10); NRBC Flagged by Analyzer 0 % (0-5); Neutrophil # 6.71 X10^3/uL (2.7-7.7); Neutrophil % 64.7 % (47-70); Platelet Count 317 K/mm3 (150-450); RBC Distribution Width CV 17.2 % (11.6-14.6); RBC Distribution Width SD 53.7 fl (35.1-43.9); Red Blood Count 4.14 M/mm3 (4.2-5.4); White Blood Count 10.4 K/mm3 (4.4-11.0)
[2021-06-14 07:01] LABS: ALB/GLOB Ratio 0.8 RATIO (0.9-2.4); AST(SGOT) 20 U/L (15-37); Alanine Aminotransfer ALT/SGPT 26 U/L (13-56); Albumin, Serum 2.7 g/dL (3.2-5.0); Alkaline Phosphatase 105 U/L (45-117); Anion Gap 4 (5-15); BUN 7 mg/dL (7-18); BUN/Creat Ratio 17.9 RATIO (10-20); Calcium,Total 8.9 mg/dL (8.5-10.1); Chloride 111 mmol/L (98-107); Cholesterol 143 mg/dL (200); Creatinine, Serum 0.39 mg/dL (0.55-1.02); EST Glomerular Filtration Rate 180 mL/min (>60); Est Glom Filt Rate - Afr Amer 218 mL/min (>60); Estimated Creatinine Clearance 134.83 ml/min; Globulin 3.2 g/dL (2.2-4.2); Glucose 77 mg/dL (74-106); High Density Lipoprotein 51 mg/dL; Potassium 3.3 mmol/L (3.5-5.1); Protein, Total 5.9 g/dL (6.4-8.2); Sodium Level 140 mmol/L (136-145); Thyroid Stim Hormone (TSH) 1.08 uIU/mL (0.358-3.74); Triglycerides 145 mg/dL; Very Low Density Lipoprotein 29 mg/dL (5-40)
[2021-06-14 07:42] LABS: Hemoglobin A1c 6.2 % (3.8-5.6)
[2021-06-14] MEDS: Ipratropium/Albuterol Sulfate 3 ML AMPUL.NEB INHALATION ×2 (07:49→13:17)
[2021-06-14] MEDS: Mirabegron 25 MG TAB.ER.24H PO (08:10)
[2021-06-14] MEDS: Clopidogrel Bisulfate 75 MG Tablet PO (08:10)
[2021-06-14] MEDS: APIXABAN 5 MG TABLET PO (08:10)
[2021-06-14] MEDS: Fluticasone 0.05% 1 SPRAY NASAL.SRY NASAL (08:10)
[2021-06-14] MEDS: Escitalopram Oxalate 20 MG Tablet PO (08:10)
[2021-06-14] MEDS: Potassium Chloride Oral Tablet 20 MEQ 40 MEQ PO (08:11)
[2021-06-14] MEDS: Pantoprazole Sodium 20 MG Tablet PO (08:11)
[2021-06-14] MEDS: busPIRone 15 MG TABLET 30 MG PO (08:11)
[2021-06-14] MEDS: lamoTRIgine 150 MG Tablet PO (08:11)
[2021-06-14] MEDS: Pregabalin 75 MG Capsule PO (11:20)
[2021-06-14] MEDS: Acetaminophen 325 MG Tablet 650 MG PO (11:21)
[2021-06-14 11:40] LABS: Bedside Glucose 124 mg/dL (74-106)
--- NOTE | 2021-06-14 14:06 | DCINST_ITS ---
Discharge Instructions Diet Discharge Diet: Low fat / Low cholesterol and Carb Control Diet Activity Discharge Activity: Return to Normal Activity Dressing / Incision Call your doctor if you observe: Fever of 101 or Higher, Shortness of breath, Dizziness and Chest pain Follow Up Care Test Results: Test results from this visit will be discussed in further detail at your follow-up appointment, if applicable. Discharge Plan Admission Admit Date/Time: 06/13/21 20:32 Primary Reason for Your Visit: Confusion, polypharmacy/ecstasy use Attending Provider: Gloria James Primary Care Provider: Janel Taylor Discharge Orders/Prescriptions Prescriptions: Continued albuterol sulfate 2.5 mg /3 mL (0.083 %) solution for nebulization 2.5 mg inhalation Q4H PRN (Reason: Sob &/Or Wheezing) Qty: 180 RF: 3 atorvastatin 80 MG tablet 80 mg PO QHS RF: 0 risperidone 4 mg tablet 4 mg PO QHS RF: 0 trazodone 100 MG tablet 200 mg PO QHS PRN (Reason: Insomnia) RF: 0 pregabalin 75 MG capsule 75 mg PO TID RF: 0 buspirone 30 mg tablet 30 mg PO BID RF: 0 furosemide 20 MG tablet 20 mg PO DAILY RF: 0 Hold Instructions: Resume on 01/22/21. mirabegron 25 MG tablet extended release 24 hr 25 mg PO DAILY RF: 0 apixaban 5 MG tablet 5 mg PO BID RF: 0 clopidogrel 75 mg tablet 75 mg PO DAILY RF: 0 promethazine 25 mg Tablet 25 mg PO BID PRN PRN (Reason: Nausea) RF: 0 escitalopram oxalate 20 mg Tablet 20 mg PO DAILY RF: 0 Advair HFA 230-21 mcg/actuation Hfa Aerosol Inhaler 2 puff INHALATION BID RF: 0 albuterol sulfate 1 PUFF HFA aerosol inhaler 2 puff IH Q4H PRN PRN (Reason: SOB &/or Wheezing ) RF: 0 fluticasone propionate 50 mcg/actuation [place],Suspension 1 spray INTRANASAL BID RF: 0 potassium chloride [K-Tab] 20 mEq tablet extended release 40 meq PO DAILY RF: 0 lamotrigine 150 mg tablet 150 mg PO DAILY RF: 0 metoprolol succinate 50 mg tablet extended release 24 hr 50 mg PO DAILY RF: 0 alendronate 70 mg tablet 70 mg PO QWEEK RF: 0 amlodipine 10 mg tablet 10 mg PO DAILY RF: 0 omeprazole 20 mg capsule,delayed release(DR/EC) 20 mg PO DAILY RF: 0 lisinopril 20 MG tablet 20 mg PO QHS RF: 0 baclofen 10 mg tablet 10 mg PO Q8H PRN PRN (Reason: pain) Qty: 0 RF: 0 hydrocodone-acetaminophen 1 TABLET tablet 1 tab PO Q4H PRN PRN (Reason: Pain) 2 Days Qty: 10 RF: 0 tiotropium bromide 2.5 mcg/actuation mist 2 puff INHALATION DAILY Qty: 4 RF: 3 doxycycline hyclate 100 mg tablet 100 mg PO BID Qty: 20 RF: 0 prednisone 10 mg tablet 10 mg PO QDAY Qty: 30 RF: 0 Referrals / Follow Up: Janel Taylor MD [Primary Care Provider] - Within 1 Week Disposition Disposition (needs filled in before D/C Order can be placed): Home, Self Care
--- NOTE | 2021-06-14 14:15 | DS.PCM_ITS ---
Documented by User: Meseret Delgado NP, [employer] 06/14/21 14:27 Providers Date of Admission: 06/13/21 Date of Discharge: 06/14/21 Primary Care Physician: Dr. Janel Taylor MD Reason For Visit: ENCEPHALOPATHY, LEUKOCYTOSIS Diagnosis Discharge Diagnosis (1) Encephalopathy: Status: Acute Code(s): G93.40 - Encephalopathy, unspecified (2) Acute confusion: Status: Acute Code(s): R41.0 - Disorientation, unspecified Medications at Discharge Home Medications atorvastatin 80 mg PO QHS 08/22/15 pregabalin 75 mg PO TID 03/08/18 risperidone 4 mg PO QHS 03/08/18 trazodone 200 mg PO QHS PRN 03/08/18 furosemide 20 mg PO DAILY 11/20/18 mirabegron 25 mg PO DAILY 11/20/18 apixaban 5 mg PO BID 05/02/19 buspirone 30 mg tablet 30 mg PO BID tab 06/27/19 tiotropium bromide 2.5 mcg/actuation mist for inhalation 2 puff INHALATION DAILY #4 g 09/30/19 clopidogrel 75 mg PO DAILY 07/31/20 Advair HFA 2 puff INHALATION BID 11/14/20 albuterol sulfate 2 puff IH Q4H PRN PRN 11/14/20 escitalopram oxalate 20 mg PO DAILY 11/14/20 fluticasone propionate 1 spray INTRANASAL BID 11/14/20 promethazine 25 mg PO BID PRN PRN 11/14/20 potassium chloride [K-Tab] 40 meq PO DAILY 01/13/21 alendronate 70 mg PO QWEEK 05/21/21 amlodipine 10 mg PO DAILY 05/21/21 lamotrigine 150 mg PO DAILY 05/21/21 lisinopril 20 mg PO QHS 05/21/21 metoprolol succinate 50 mg PO DAILY 05/21/21 omeprazole 20 mg PO DAILY 05/21/21 baclofen 10 mg PO Q8H PRN PRN #0 tab 05/22/21 albuterol sulfate 2.5 mg INHALATION Q4H PRN #180 ml 05/25/21 hydrocodone-acetaminophen 1 tab PO Q4H PRN PRN 2 Days #10 tablet 05/26/21 doxycycline hyclate 100 mg tablet 100 mg PO BID #20 tab 06/04/21 prednisone 10 mg tablet 10 mg PO QDAY #30 tab 06/04/21 Hospital Course Operations None Procedures None Summary of Care Provided Hospital Course: Patient is a 55-year-old female admitted 06/13/21 due to confusion. 1. Acute encephalopathy-secondary to polypharmacy, tox screen positive for ecstasy. Stroke ruled out. No evidence of metabolic or infectious etiology. MRI of brain, MRA of head and neck negative for stroke. Mental status now at baseline. Follow-up with PCP in 1 week. 2. Leukocytosis-suspect secondary to recent steroid use. Afebrile. UA and chest x-ray unremarkable. Leukocytosis resolved. 3. Type 2 diabetes mellitus- Continue home insulin regimen. 4. Chronic COPD with chronic hypoxic respiratory failure-Continue supplement oxygen to maintain O2 at or above 90%. Follows with Dr. Willoughby, pulmonary medicine. Recently treated with antibiotics and steroids for bronchitis. 5. CAD status post PCI x5-on Eliquis, Plavix, statin, lisinopril, metoprolol. 6. History of PE-on Eliquis. 7. History of peptic ulcer disease/GERD-continue omeprazole regimen. 8. Chronic pain syndrome-on Lyrica, baclofen. 9. Hypertension-continue amlodipine, lisinopril, metoprolol. 10. Hyperlipidemia-continue statin regimen. 11. Iron deficiency anemia-stable. 12. Tobacco dependence-encourage cessation. 13. Schizophrenia/anxiety/depression-continue home BuSpar, Risperdal and trazodone regimen. 14. RACHEL-continue CPAP nightly. Physical Exam Const alert and oriented x3 Constitutional Narrative: Appears uncomfortable. Orientation / Consciousness: awake, oriented to person, oriented to place and oriented to time HEENT normocephalic and moist oral mucous membranes Eyes PERRL, EOMs intact bilaterally and conjunctivae normal Neck no lymphadenopathy Resp Diminished, few scattered wheezing Cardio regular rate, regular rhythm and no murmurs Peripheral Pulses: pulses 2+ throughout GI normal to inspection, nondistended, normoactive bowel sounds and non-distended Palpation: tender Extremity normal to inspection Skin no rashes or lesions noted Lesions: no lesions Rashes: no rashes Trauma: no lacerations or abrasions Neuro CN's II-XII intact bilaterally, no focal motor deficits, no sensory deficits noted and deep tendon reflexes 2+ bilaterally Psych mental status grossly normal and affect normal Patient seen and examined prior to discharge. Physical assessment as noted above. Patient is stable for discharge with follow up recommendations as noted above. This patient was seen by ERROL Lunsford under the supervision of Dr. James. Time spent examining patient, reviewing data and subsequent management of care: 18 Minutes Medical Records Data Medical Nutrition Assessment Dietitian: Malnutrition Criteria Met Start: 06/14/21 12:13 Freq: Status: Active Protocol: Document 06/14/21 12:13 RMA (Rec: 06/14/21 12:13 RMA [id number]) Nutrition Malnutrition Evidence of Malnutrition Exists Yes Malnutrition (severe): Acute Illness/Injury,Chronic, Social/Behavioral/ Environmental Evidenced By Suboptimal Energy Intake ( Severe),Weight Loss (Severe) Clinical Problem Chronic Disease or Condition Related Malnutrition Etiology Severe protien-calorie malnutrition in the context of acute on chronic disease and possible social circumstance related to inadequate oral intake and altered GI function Signs/Symptoms as evidenced by ~9% wt loss x past 1-3 months, poor PO/ appetite x past 1-2 months suspected intake not meeting 50-75% estimated nutrition needs per pt report/diet recall and N/V/D Status Active Problem Recommendation Dietitian Recommendations/Changes Recommend advance diet as medically able to 2000 calorie /consistent carbohydrate/ cardiac diet with 120 ml glucerna shake TID w/ medpass. Adjust ONS as needed once diet advanced from NPO and PO established with meals. Weight / BMI Weight Weight: 199 lb 1.239 oz Body Mass Index (BMI) 35.2 ABG / Lab / Microbiology Data Result Diagrams: 06/14/21 06:13 06/14/21 06:13 Laboratory: Laboratory Results - last 24 hr 06/13/21 17:00: WBC 18.2 H, RBC 4.54, Hgb 12.7, Hct 38.4, MCV 84.6, MCH 28.0, MCHC 33.1, RDW Std Deviation 53.3 H, RDW Coeff of [place] 17.3 H, Plt Count 414, MPV 9.0, Immature Gran % (Auto) 0.500, Neut % (Auto) 77.8 H, Lymph % (Auto) 13.2 L, [place] % (Auto) 7.6, Eos % (Auto) 0.4, Baso % (Auto) 0.5, Absolute Neuts (auto) 14.2 H, Absolute Lymphs (auto) 2.40, Nucleated RBC % 0 06/13/21 17:00: Sodium 138, Potassium 3.8, Chloride 107, Carbon Dioxide 26.0, Anion Gap 5, BUN 11, Creatinine 0.62, Estim Creat Clear Calc 84.81, Est GFR (MDRD) Af Amer 129, Est GFR (MDRD) Non-Af 107, BUN/Creatinine Ratio 17.8, Glucose 129 H, Calcium 10.3 H 06/13/21 17:00: Lactic Acid 1.7 06/13/21 17:30: Urine Color Yellow, Urine Clarity Clear, Urine pH 6.5, Ur Specific [place] 1.010, Urine Protein 30 H, Urine Glucose (UA) Normal, Urine Ketones 5 H, Urine Occult Blood Negative, Urine Nitrite Negative, Urine Bilirubin Negative, Urine Urobilinogen 1 H, Ur Leukocyte Esterase 25 H, Urine RBC 0 SEEN, Urine WBC 0-5 SEEN, Ur Squamous Epith Cells 0-5 SEEN, Urine Bacteria 0 SEEN, Urine Mucus 3+ 06/13/21 17:30: Urine Opiates Screen NEGATIVE, Urine Methadone Screen NEGATIVE, Ur Barbiturates Screen NEGATIVE, Ur Phencyclidine Scrn NEGATIVE, Ur Amphetamines Screen NEGATIVE, MDMA (Ecstasy) Screen POSITIVE H, U Benzodiazepines Scrn NEGATIVE, Urine Cocaine Screen NEGATIVE, U Cannabinoids Screen NEGATIVE, Ur Drug Screen Comment 06/13/21 21:04: Ammonia < 10.0 L 06/13/21 21:04: Magnesium 1.8, Total Bilirubin 0.70, Direct Bilirubin 0.22, AST 23, ALT 29, Alkaline Phosphatase 124 H, Total Protein 6.6, Albumin 3.2, Globulin 3.4 06/13/21 21:04: Procalcitonin 0.08 06/13/21 21:05: COVID-19 ([place]) Not Detected 06/13/21 23:40: POC Glucose 101 06/14/21 06:13: WBC 10.4, RBC 4.14 L, Hgb 11.4 L, Hct 35.5 L, MCV 85.7, MCH 27.5, MCHC 32.1, RDW Std Deviation 53.7 H, RDW Coeff of [place] 17.2 H, Plt Count 317, MPV 9.1, Immature Gran % (Auto) 0.400, Neut % (Auto) 64.7, Lymph % (Auto) 23.3, [place] % (Auto) 8.3, Eos % (Auto) 2.5, Baso % (Auto) 0.8, Absolute Neuts (auto) 6.7, Absolute Lymphs (auto) 2.42, Nucleated RBC % 0 06/14/21 06:13: Sodium 140, Potassium 3.3 L, Chloride 111 H, Carbon Dioxide 25.0, Anion Gap 4 L, BUN 7, Creatinine 0.39 L, Estim Creat Clear Calc 134.83, Est GFR (MDRD) Af Amer 218, Est GFR (MDRD) Non-Af 180, BUN/Creatinine Ratio 17.9, Glucose 77, Calcium 8.9, Total Bilirubin 0.70, AST 20, ALT 26, Alkaline Phosphatase 105, Total Protein 5.9 L, Albumin 2.7 L, Globulin 3.2, Albumin/Globulin Ratio 0.8 L, Triglycerides 145, Cholesterol 143, LDL Cholesterol 63, VLDL Cholesterol 29, HDL Cholesterol 51, TSH 1.08 06/14/21 06:13: Hemoglobin A1c 6.2 H 06/14/21 11:29: POC Glucose 124 H Microbiology: Microbiology 06/13/21 21:05 Mucosa - Nasopharyngeal Respiratory Panel (PCR) - Final Radiography Diagnostic Testing: Radiology Impression Brain CT 06/13/21 16:49 IMPRESSION: No acute intracranial pathology. Chronic small vessel ischemic changes of the periventricular white matter, not significantly changed compared to prior exam from 12/16/2019. Electronically Signed: Fede Terrazas DO at 18:38 EDT , Abdomen/Pelvis CT 06/13/21 17:52 IMPRESSION: No acute findings in the abdomen or pelvis. Individualized dose optimization techniques were used for this CT. at 2024 Reported and signed by: Maxwell Barajas MD Electronically Signed: Maxwell Barajas MD at 20:23 EDT , Brain MRI 06/13/21 21:42 IMPRESSION: 1. No evidence of acute ischemia. 2. Chronic microvascular ischemic changes. at 1039 Reported and signed by: Clif Haywood MD Electronically Signed: Clif Haywood MD at 10:38 EDT , Head MRA 06/13/21 21:42 IMPRESSION: No flow-limiting stenosis or aneurysm at 1036 Reported and signed by: Clif Haywood MD Electronically Signed: Clif Haywood MD at 10:35 EDT , Chest X-Ray 06/13/21 22:08 IMPRESSION: No radiographic evidence of acute cardiopulmonary disease. at 0043 Reported and signed by: Maxwell Barajas MD Electronically Signed: Maxwell Barajas MD at 0:42 EDT , D/C Instructions Discharge Diet: Low fat / Low cholesterol and Carb Control Diet Call your doctor if you observe: Fever of 101 or Higher, Shortness of breath, Dizziness and Chest pain Meaningful Use Info Meaningful Use Diagnoses (Choose all that apply): None applicable Discharge Plan Admission Admit Date/Time: 06/13/21 20:32 Primary Reason for Your Visit: Confusion, polypharmacy/ecstasy use Attending Provider: Gloria James Primary Care Provider: Janel Taylor Discharge Orders/Prescriptions Prescriptions: Continued albuterol sulfate 2.5 mg /3 mL (0.083 %) solution for nebulization 2.5 mg inhalation Q4H PRN (Reason: Sob &/Or Wheezing) Qty: 180 RF: 3 atorvastatin 80 MG tablet 80 mg PO QHS RF: 0 risperidone 4 mg tablet 4 mg PO QHS RF: 0 trazodone 100 MG tablet 200 mg PO QHS PRN (Reason: Insomnia) RF: 0 pregabalin 75 MG capsule 75 mg PO TID RF: 0 buspirone 30 mg tablet 30 mg PO BID RF: 0 furosemide 20 MG tablet 20 mg PO DAILY RF: 0 Hold Instructions: Resume on 01/22/21. mirabegron 25 MG tablet extended release 24 hr 25 mg PO DAILY RF: 0 apixaban 5 MG tablet 5 mg PO BID RF: 0 clopidogrel 75 mg tablet 75 mg PO DAILY RF: 0 promethazine 25 mg Tablet 25 mg PO BID PRN PRN (Reason: Nausea) RF: 0 escitalopram oxalate 20 mg Tablet 20 mg PO DAILY RF: 0 Advair HFA 230-21 mcg/actuation Hfa Aerosol Inhaler 2 puff INHALATION BID RF: 0 albuterol sulfate 1 PUFF HFA aerosol inhaler 2 puff IH Q4H PRN PRN (Reason: SOB &/or Wheezing ) RF: 0 fluticasone propionate 50 mcg/actuation [place],Suspension 1 spray INTRANASAL BID RF: 0 potassium chloride [K-Tab] 20 mEq tablet extended release 40 meq PO DAILY RF: 0 lamotrigine 150 mg tablet 150 mg PO DAILY RF: 0 metoprolol succinate 50 mg tablet extended release 24 hr 50 mg PO DAILY RF: 0 alendronate 70 mg tablet 70 mg PO QWEEK RF: 0 amlodipine 10 mg tablet 10 mg PO DAILY RF: 0 omeprazole 20 mg capsule,delayed release(DR/EC) 20 mg PO DAILY RF: 0 lisinopril 20 MG tablet 20 mg PO QHS RF: 0 baclofen 10 mg tablet 10 mg PO Q8H PRN PRN (Reason: pain) Qty: 0 RF: 0 hydrocodone-acetaminophen 1 TABLET tablet 1 tab PO Q4H PRN PRN (Reason: Pain) 2 Days Qty: 10 RF: 0 tiotropium bromide 2.5 mcg/actuation mist 2 puff INHALATION DAILY Qty: 4 RF: 3 doxycycline hyclate 100 mg tablet 100 mg PO BID Qty: 20 RF: 0 prednisone 10 mg tablet 10 mg PO QDAY Qty: 30 RF: 0 Referrals / Follow Up: Janel Taylor MD [Primary Care Provider] - Within 1 Week Disposition Disposition (needs filled in before D/C Order can be placed): Home, Self Care Documented by User: Dr. Gloria James MD 06/14/21 15:49 Providers Date of Admission: 06/13/21 Reason For Visit: ENCEPHALOPATHY, LEUKOCYTOSIS Medications at Discharge Home Medications atorvastatin 80 mg PO QHS 08/22/15 pregabalin 75 mg PO TID 03/08/18 risperidone 4 mg PO QHS 03/08/18 trazodone 200 mg PO QHS PRN 03/08/18 furosemide 20 mg PO DAILY 11/20/18 mirabegron 25 mg PO DAILY 11/20/18 apixaban 5 mg PO BID 05/02/19 buspirone 30 mg tablet 30 mg PO BID tab 06/27/19 tiotropium bromide 2.5 mcg/actuation mist for inhalation 2 puff INHALATION DAILY #4 g 09/30/19 clopidogrel 75 mg PO DAILY 07/31/20 Advair HFA 2 puff INHALATION BID 11/14/20 albuterol sulfate 2 puff IH Q4H PRN PRN 11/14/20 escitalopram oxalate 20 mg PO DAILY 11/14/20 fluticasone propionate 1 spray INTRANASAL BID 11/14/20 promethazine 25 mg PO BID PRN PRN 11/14/20 potassium chloride [K-Tab] 40 meq PO DAILY 01/13/21 alendronate 70 mg PO QWEEK 05/21/21 amlodipine 10 mg PO DAILY 05/21/21 lamotrigine 150 mg PO DAILY 05/21/21 lisinopril 20 mg PO QHS 05/21/21 metoprolol succinate 50 mg PO DAILY 05/21/21 omeprazole 20 mg PO DAILY 05/21/21 baclofen 10 mg PO Q8H PRN PRN #0 tab 05/22/21 albuterol sulfate 2.5 mg INHALATION Q4H PRN #180 ml 05/25/21 hydrocodone-acetaminophen 1 tab PO Q4H PRN PRN 2 Days #10 tablet 05/26/21 doxycycline hyclate 100 mg tablet 100 mg PO BID #20 tab 06/04/21 prednisone 10 mg tablet 10 mg PO QDAY #30 tab 06/04/21 ABG / Lab / Microbiology Data Result Diagrams: 06/14/21 06:13 06/14/21 06:13 Discharge Plan Admission Admit Date/Time: 06/13/21 20:32 Primary Reason for Your Visit: Confusion, polypharmacy/ecstasy use Attending Provider: Gloria James Primary Care Provider: Janel Taylor Discharge Orders/Prescriptions Prescriptions: Continued albuterol sulfate 2.5 mg /3 mL (0.083 %) solution for nebulization 2.5 mg inhalation Q4H PRN (Reason: Sob &/Or Wheezing) Qty: 180 RF: 3 atorvastatin 80 MG tablet 80 mg PO QHS RF: 0 risperidone 4 mg tablet 4 mg PO QHS RF: 0 trazodone 100 MG tablet 200 mg PO QHS PRN (Reason: Insomnia) RF: 0 pregabalin 75 MG capsule 75 mg PO TID RF: 0 buspirone 30 mg tablet 30 mg PO BID RF: 0 furosemide 20 MG tablet 20 mg PO DAILY RF: 0 Hold Instructions: Resume on 01/22/21. mirabegron 25 MG tablet extended release 24 hr 25 mg PO DAILY RF: 0 apixaban 5 MG tablet 5 mg PO BID RF: 0 clopidogrel 75 mg tablet 75 mg PO DAILY RF: 0 promethazine 25 mg Tablet 25 mg PO BID PRN PRN (Reason: Nausea) RF: 0 escitalopram oxalate 20 mg Tablet 20 mg PO DAILY RF: 0 Advair HFA 230-21 mcg/actuation Hfa Aerosol Inhaler 2 puff INHALATION BID RF: 0 albuterol sulfate 1 PUFF HFA aerosol inhaler 2 puff IH Q4H PRN PRN (Reason: SOB &/or Wheezing ) RF: 0 fluticasone propionate 50 mcg/actuation [place],Suspension 1 spray INTRANASAL BID RF: 0 potassium chloride [K-Tab] 20 mEq tablet extended release 40 meq PO DAILY RF: 0 lamotrigine 150 mg tablet 150 mg PO DAILY RF: 0 metoprolol succinate 50 mg tablet extended release 24 hr 50 mg PO DAILY RF: 0 alendronate 70 mg tablet 70 mg PO QWEEK RF: 0 amlodipine 10 mg tablet 10 mg PO DAILY RF: 0 omeprazole 20 mg capsule,delayed release(DR/EC) 20 mg PO DAILY RF: 0 lisinopril 20 MG tablet 20 mg PO QHS RF: 0 baclofen 10 mg tablet 10 mg PO Q8H PRN PRN (Reason: pain) Qty: 0 RF: 0 hydrocodone-acetaminophen 1 TABLET tablet 1 tab PO Q4H PRN PRN (Reason: Pain) 2 Days Qty: 10 RF: 0 tiotropium bromide 2.5 mcg/actuation mist 2 puff INHALATION DAILY Qty: 4 RF: 3 doxycycline hyclate 100 mg tablet 100 mg PO BID Qty: 20 RF: 0 prednisone 10 mg tablet 10 mg PO QDAY Qty: 30 RF: 0 Referrals / Follow Up: Janel Taylor MD [Primary Care Provider] - Within 1 Week Disposition Disposition (needs filled in before D/C Order can be placed): Home, Self Care Charges/Coding Addendum Addendum: This patient was seen in conjunction with Meseret Delgado NP. I have independently interviewed and examined the patient and reviewed pertinent h istorical, laboratory, and other data. I have reviewed her note and concur with her documentation 55 y/o female with multiple comorbidities who comes in with fatigue and found to be confused. Patient's work-up was negative. Her admitting blood work was unremarkable. Urine tox was positive for ecstasy. Acute stroke was ruled out from MRI of the brain, MRA of the head and neck. Patient has history of polypharmacy, non-compliant with Bipap. Patient was much awake and oriented at the time of discharge. She denied any new complaints. Physical Exam: Gen: Comfortable, not pale, not jaundiced CVS:HS I +II, regular, no murmurs RESP: Diminished at lung bases GI: BS present and normal, soft, nontender, no palpable organs EXT:No edema Time spent coordinating patient's care, discussing with nursin minutes Visit Charges OBSV E&M: 10615 Observation care discharge
--- NOTE | 2021-06-14 14:33 | CASEMGMT ---
Pt states no need for any further resources at discharge. Pt voices no further questions/concerns/needs. Nereida SANTIAGO CM
== END 2021-06-14 14:10 | disposition home or self-care (01) ==
LOC: ED 20:38 → PCU 20:47
PROVIDERS: Admitting Provider Family Medicine; Emergency Provider Emergency Medicine; PCP Family Medicine; Visit Provider Internal Medicine
DX: G93.40 Encephalopathy, unspecified (principal); F25.9 Schizoaffective disorder, unspecified; J43.9 Emphysema, unspecified; F16.99 Hallucinogen use, unspecified with unspecified hallucinogen-induced disorder; E11.40 Type 2 diabetes mellitus with diabetic neuropathy, unspecified; E66.01 Morbid (severe) obesity due to excess calories; Z79.4 Long term (current) use of insulin; K21.9 Gastro-esophageal reflux disease without esophagitis; G89.4 Chronic pain syndrome; I10 Essential (primary) hypertension; I25.10 Atherosclerotic heart disease of native coronary artery without angina pectoris; Z79.51 Long term (current) use of inhaled steroids; F17.210 Nicotine dependence, cigarettes, uncomplicated; D50.9 Iron deficiency anemia, unspecified; M54.9 Dorsalgia, unspecified; R51.9 Headache, unspecified; R53.83 Other fatigue; D72.829 Elevated white blood cell count, unspecified; G47.33 Obstructive sleep apnea (adult) (pediatric); R35.0 Frequency of micturition; E78.5 Hyperlipidemia, unspecified; Z79.01 Long term (current) use of anticoagulants; Z79.02 Long term (current) use of antithrombotics/antiplatelets; F41.9 Anxiety disorder, unspecified; Z79.899 Other long term (current) drug therapy; Z68.35 Body mass index [BMI] 35.0-35.9, adult; Z98.84 Bariatric surgery status; F32.A Depression, unspecified; Z86.711 Personal history of pulmonary embolism; Z86.718 Personal history of other venous thrombosis and embolism
CPT/HCPCS: 36415; 70450; 70544; 70551; 71046; 74176; 80048; 80053; 80061; 80076; 80307; 81001; 82140; 82962; 83036; 83605; 83735; 84145; 84443; 85025; 87040; 87633; 87635; 92523; 93306; 93880; 94002; 94003; 94640; 94762; 96361; 96374; 97162; 97166; 97802; 99218; 99251; 99283; 99406; J7030; Q9957; A4216; C8929; G0378; G0463; J2405; U0003; U0005

== ENCOUNTER 2021-06-28 20:54 | Emergency (ER) | payer MEDICARE, MEDICAID, SELFPAY ==
[2021-06-28] VITALS (7 sets, daily range): BP systolic 103–165; BP diastolic 47–102; PULSE 76–101; RESP 15–18; TEMP 36.3–36.8; O2SAT 87–100; BMI 39.4
--- NOTE | 2021-06-28 22:11 | EDS_ITS ---
HPI History of Present Illness Chief Complaint: Lower Extremity Injury Informant: patient Narrative Narrative: Patient is a 55-year-old female with complex medical history including COPD, 3 L oxygen at baseline, coronary artery disease and recurrent hip dislocations presenting with right hip pain and concern for repeat dislocation. Patient has appointment for July [address] Yung about this. Patient states she was bending over slightly when her hip went out. This happened around 8 PM. She ate dinner at 7:30 PM. She had immediate pain. She was then transported to emergency room by [facility]. Patient does notice some paresthesias to her right town[place]. No other complaints at this time. [facility] Medical History Anemia Asthma Atherosclerotic heart disease of [place] coronary artery without angina pectoris Benign essential hypertension BiPAP (biphasic positive airway pressure) dependence Bleeding tendency CAD (coronary artery disease) Chest pain Chronic cough Chronic narcotic use Closed fracture of proximal end of fibula COPD (chronic obstructive pulmonary disease) Current use of insulin Delayed surgical wound healing Diabetes Emphysema of lung Gastroesophageal reflux disease High cholesterol Hip osteoarthritis History of pulmonary embolism History of stress test Hypertension Irregular heart beat Irritable bowel Morbid obesity Morbid obesity with BMI of 45.0-49.9, adult Myocardial infarct On home oxygen therapy RACHEL (obstructive sleep apnea) Pancreatitis Peptic ulcer Pulmonary hypertension Schizoaffective disorder Schizophrenia Sleep apnea Smoker Spinal stenosis of lumbar region at multiple levels Stage 2 moderate COPD by GOLD classification Suspected COVID-19 virus infection Thyroid nodule Tobacco abuse Ulcer Vitamin D deficiency Home Medications atorvastatin 80 mg PO QHS 08/22/15 [History Last Taken 03/15/21] pregabalin 75 mg PO TID 03/08/18 [History Last Taken 03/15/21] risperidone 4 mg PO QHS 03/08/18 [History Last Taken 03/15/21] trazodone 200 mg PO QHS PRN 03/08/18 [History Last Taken 03/15/21] furosemide 20 mg PO DAILY 11/20/18 [History Last Taken 03/15/21] mirabegron 25 mg PO DAILY 11/20/18 [History Last Taken 03/15/21] apixaban 5 mg PO BID 05/02/19 [History Last Taken 03/15/21] buspirone 30 mg tablet 30 mg PO BID tab 06/27/19 [History Last Taken 03/15/21] tiotropium bromide 2.5 mcg/actuation mist for inhalation 2 puff INHALATION DAILY #4 g 09/30/19 [Rx Last Taken 03/15/21] clopidogrel 75 mg PO DAILY 07/31/20 [History Last Taken 03/15/21] Advair HFA 2 puff INHALATION BID 11/14/20 [History Last Taken 03/15/21] albuterol sulfate 2 puff IH Q4H PRN PRN 11/14/20 [History Last Taken Unknown] escitalopram oxalate 20 mg PO DAILY 11/14/20 [History Last Taken 03/15/21] fluticasone propionate 1 spray INTRANASAL BID 11/14/20 [History Last Taken 03/15/21] promethazine 25 mg PO BID PRN PRN 11/14/20 [History Last Taken Unknown] potassium chloride [K-Tab] 40 meq PO DAILY 01/13/21 [History Last Taken 03/15/21] alendronate 70 mg PO QWEEK 05/21/21 [History Last Taken Unknown] amlodipine 10 mg PO DAILY 05/21/21 [History Last Taken Unknown] lamotrigine 150 mg PO DAILY 05/21/21 [History Last Taken Unknown] lisinopril 20 mg PO QHS 05/21/21 [History Last Taken Unknown] metoprolol succinate 50 mg PO DAILY 05/21/21 [History Last Taken Unknown] omeprazole 20 mg PO DAILY 05/21/21 [History Last Taken Unknown] baclofen 10 mg PO Q8H PRN PRN #0 tab 05/22/21 [Rx Last Taken Unknown] albuterol sulfate 2.5 mg INHALATION Q4H PRN #180 ml 05/25/21 [Rx Last Taken Unknown] hydrocodone-acetaminophen 1 tab PO Q4H PRN PRN 2 Days #10 tablet 05/26/21 [Rx Last Taken Unknown] Allergy/AdvReac Type Severity Reaction Status Date / Time amoxicillin Allergy Itching Verified 06/28/21 20:56 erythromycin base Allergy Unknown Verified 06/28/21 20:56 methadone Allergy Itching Verified 06/28/21 20:56 metolazone Allergy Unknown Verified 06/28/21 20:56 Penicillins Allergy Hives Verified 06/28/21 20:56 Sulfa (Sulfonamide Allergy Hives Verified 06/28/21 20:56 Antibiotics) clarithromycin [From Biaxin] AdvReac Nausea Verified 06/28/21 20:56 ibuprofen AdvReac 3 BLEEDING Verified 06/28/21 20:56 ULCERS morphine AdvReac HEADACHE Verified 06/28/21 20:56 oxycodone [From Percocet] AdvReac Itching Verified 06/28/21 20:56 Family History Mother Heart disease Cancer ovarian Father Hypertension Arthritis Hyperlipemia Grandmother Breast cancer Heart disease Grandfather Heart disease Sister Hypertension Surgical History H/O cardiac catheterization H/O heart artery stent History of appendectomy History of carpal tunnel surgery of left wrist History of cholecystectomy History of gastric bypass History of gastric bypass History of PTCA History of right ankle surgery history of right hip surgery History of tonsillectomy Social History household members: none Smoking Status: Current every day smoker tobacco type: cigarettes alcohol intake: never substance use type: does not use caffeine: No what type of physical activity do you participate in: none ROS ROS ED Constitutional Constitutional ED: Denies chills or fever(s) Eyes Eyes: Denies change in vision Cardiovascular Cardiovascular: Denies chest pain Respiratory/Chest Respiratory/Chest: Denies cough or dyspnea Gastrointestinal Gastrointestinal: Denies abdominal pain or nausea Musculoskeletal Musculoskeletal: Reports other Details: Right hip pain Integumentary Denies rash Neurologic Neurologic: Reports paresthesias; Denies headache(s) or weakness Psychiatric Psychiatric: Denies anxiety or depression EXAM Physical Exam Const Vital Signs: 06/28/21 20:56 06/28/21 23:26 06/28/21 23:35 Temperature 97.4 F L 98.2 F Temperature Source Temporal Pulse Rate 101 H 82 99 Pulse Rate [1 (Initial Baseline)] Pulse Rate [2] Respiratory Rate 18 17 15 Respiratory Rate [1 (Initial Baseline)] Respiratory Rate [2] Blood Pressure 105/81 H 134/79 H 131/89 H Blood Pressure [1 (Initial Baseline)] Blood Pressure [2] Blood Pressure Mean 89 97 Pulse Ox 98 96 99 Oxygen Delivery Method Room Air Room Air Oxygen Delivery Method [2] Oxygen Flow Rate (L/min) 06/28/21 23:36 06/28/21 23:47 06/28/21 23:52 Temperature Temperature Source Pulse Rate 76 Pulse Rate [1 (Initial Baseline)] 91 Pulse Rate [2] 91 Respiratory Rate 17 Respiratory Rate [1 (Initial Baseline)] 17 Respiratory Rate [2] 17 Blood Pressure 103/47 L Blood Pressure [1 (Initial Baseline)] 133/92 H Blood Pressure [2] 133/102 H Blood Pressure Mean Pulse Ox 100 Oxygen Delivery Method Nasal Cannula Nasal Cannula Oxygen Delivery Method [2] Room Air Oxygen Flow Rate (L/min) 3 2 Positive well nourished, well developed and obese General Appearance ED: well developed and NAD Nutritional Appearance: obese HEENT normocephalic and atraumatic Eyes PERRL Neck full ROM and supple Chest Wall inspection of chest normal Resp normal respiratory effort Auscultation: wheezes Cardio regular rate, regular rhythm and no murmurs Cardio Narrative: 2+ right DP pulse GI non-tender Palpation: soft Extremity Extremity Narrative: Decreased range of motion of the right hip. Patient is holding at flex and externally rotated. Normal movement distally. Neuro oriented x3 Neuro Narrative: Decreased range of motion of the right hip. Normal strength otherwise. Patient has subjective paresthesias along the anterior [place] however none on the lateral or posterior aspect. Sensorium / Orientation: alert Psych mental status grossly normal Skin Lesions: no lesions Rashes: no rashes MDM MDM MDM Narrative Medical decision making narrative: Patient evaluated for sudden onset of right hip pain. Has a history of parasitic hip dislocation. She is neurovascularly intact. X-ray confirms repeat periprosthetic hip dislocation. Reduction performed. See procedure note. Patient discharged home in the immobilizer. Has surgery scheduled for July 06 for this. Counseled on return precautions. Radiography Diagnostic Testing: Clinical Impression(s) from Imaging Studies Hip/Pelvis X-Ray 06/28/21 22:58 IMPRESSION: 1. Superior dislocation of the right hip arthroplasty. 2. Cortical irregularity at involving the lower fixation ring of the right hip arthroplasty femoral component, may represent heterotopic ossification versus nondisplaced fracture. Electronically Signed: Elroy Velazquez MD at 23:38 EDT , Procedures Other Procedures Procedure(s): Procedural sedation for right periprosthetic hip reduction Patient placed on end-tidal CO2, continuous telemetry and pulse ox. Informed consent obtained as well as signout. Start time 6. End time 2344. Total 80 mg IV propofol used multiple aliquots. Nick technique used for reduction. After reduction patient is equal leg lengths with equal pedal pulses. Neurovascularly intact. Patient does have some transient hypoxia which resolved with jaw thrust. Shortly after that she wakes and returns to her baseline. Is placed in a knee immobilizer. Has resolution of her pain. Discharge Plan Triage Chief Complaint: Lower Extremity Injury ED Provider: Yoly Beck Dx/Rx/DC Orders Clinical Impression: Dislocation of hip, right, closed Instructions: ED Hip Replace Dislocation Reduc Prescriptions: No Action albuterol sulfate 2.5 mg /3 mL (0.083 %) solution for nebulization 2.5 mg inhalation Q4H PRN (Reason: Sob &/Or Wheezing) Qty: 180 RF: 3 atorvastatin 80 MG tablet 80 mg PO QHS RF: 0 risperidone 4 mg tablet 4 mg PO QHS RF: 0 trazodone 100 MG tablet 200 mg PO QHS PRN (Reason: Insomnia) RF: 0 pregabalin 75 MG capsule 75 mg PO TID RF: 0 buspirone 30 mg tablet 30 mg PO BID RF: 0 furosemide 20 MG tablet 20 mg PO DAILY RF: 0 Hold Instructions: Resume on 01/22/21. mirabegron 25 MG tablet extended release 24 hr 25 mg PO DAILY RF: 0 apixaban 5 MG tablet 5 mg PO BID RF: 0 clopidogrel 75 mg tablet 75 mg PO DAILY RF: 0 promethazine 25 mg Tablet 25 mg PO BID PRN PRN (Reason: Nausea) RF: 0 escitalopram oxalate 20 mg Tablet 20 mg PO DAILY RF: 0 Advair HFA 230-21 mcg/actuation Hfa Aerosol Inhaler 2 puff INHALATION BID RF: 0 albuterol sulfate 1 PUFF HFA aerosol inhaler 2 puff IH Q4H PRN PRN (Reason: SOB &/or Wheezing ) RF: 0 fluticasone propionate 50 mcg/actuation [place],Suspension 1 spray INTRANASAL BID RF: 0 potassium chloride [K-Tab] 20 mEq tablet extended release 40 meq PO DAILY RF: 0 lamotrigine 150 mg tablet 150 mg PO DAILY RF: 0 metoprolol succinate 50 mg tablet extended release 24 hr 50 mg PO DAILY RF: 0 alendronate 70 mg tablet 70 mg PO QWEEK RF: 0 amlodipine 10 mg tablet 10 mg PO DAILY RF: 0 omeprazole 20 mg capsule,delayed release(DR/EC) 20 mg PO DAILY RF: 0 lisinopril 20 MG tablet 20 mg PO QHS RF: 0 baclofen 10 mg tablet 10 mg PO Q8H PRN PRN (Reason: pain) Qty: 0 RF: 0 hydrocodone-acetaminophen 1 TABLET tablet 1 tab PO Q4H PRN PRN (Reason: Pain) 2 Days Qty: 10 RF: 0 tiotropium bromide 2.5 mcg/actuation mist 2 puff INHALATION DAILY Qty: 4 RF: 3 Primary Care Provider: Janel Taylor Referrals: Janel Taylor MD [Primary Care Provider] - Activity Restrictions/Additional Instructions: Follow-up with your orthopedist as scheduled. You should call the office tomorrow to let them know that your hip went out again. Please wear knee immobilizer at all time. Ice the area. Disposition Disposition: Home, Self Care
[2021-06-28] MEDS: HYDROmorphone 1 MG/ML Syringe IV (22:20)
[2021-06-28] MEDS: Ondansetron 4 MG/2 ML Vial IV (22:21)
--- NOTE | 2021-06-28 22:58 | RAD_ITS ---
INDICATION: Injury/Pain EXAMINATION/TECHNIQUE: X-RAY - RIGHT XR Hip Unilateral with Pelvis when performed; 2-3 Views 4 VIEWS COMPARISON: 05/26/2021 FINDINGS: SOFT TISSUES: Vascular calcifications. No soft tissue swelling or gas. No radiopaque foreign body. BONES/JOINTS: Redemonstration of right hip arthroplasty with superior dislocation of the femoral component. Degenerative changes in the visualized spine. Cortical irregularity involving the lower fixation ring in the proximal femoral diaphysis. RAD/HIP, UNI W/ Pelvis 2-3 Views IMPRESSION: 1. Superior dislocation of the right hip arthroplasty. 2. Cortical irregularity at involving the lower fixation ring of the right hip arthroplasty femoral component, may represent heterotopic ossification versus nondisplaced fracture. Electronically Signed: Elroy Velazquez MD at 23:38 EDT ,
[2021-06-28] MEDS: 0.9% Normal Saline 1,000 ML 999 ML IV (23:22)
[2021-06-28] MEDS: Propofol 200 MG/20 ML Vial IV BOLUS (23:23)
--- NOTE | 2021-06-28 23:47 | RAD_ITS ---
STUDY: X-RAY - PELVIS AND RIGHT HIP REASON FOR EXAM: Female, 55 years old. post reducation TECHNIQUE: 2 views of the pelvis and hip. COMPARISON: 06/28/2021 FINDINGS/ RAD/Hip Min 2 Views (Portable) IMPRESSION: Status post reduction of prior right hip arthroplasty dislocation now in anatomic alignment. Electronically Signed: Elroy Velazquez MD at 0:18 EDT ,
[2021-06-29 00:02] VITALS: BP 104/73; PULSE 110; RESP 18; O2SAT 94
== END 2021-06-29 00:17 | disposition home or self-care (01) ==
PROVIDERS: Emergency Provider Emergency Medicine; PCP Family Medicine; Visit Provider Emergency Medicine
DX: M24.451 Recurrent dislocation, right hip (principal); J43.9 Emphysema, unspecified; E66.01 Morbid (severe) obesity due to excess calories; E11.9 Type 2 diabetes mellitus without complications; Z79.4 Long term (current) use of insulin; R09.02 Hypoxemia; E78.00 Pure hypercholesterolemia, unspecified; I10 Essential (primary) hypertension; I25.10 Atherosclerotic heart disease of native coronary artery without angina pectoris; J45.909 Unspecified asthma, uncomplicated; G47.33 Obstructive sleep apnea (adult) (pediatric); I25.2 Old myocardial infarction; Z99.81 Dependence on supplemental oxygen; Z79.01 Long term (current) use of anticoagulants; Z79.02 Long term (current) use of antithrombotics/antiplatelets; Z79.899 Other long term (current) drug therapy
CPT/HCPCS: 27265; 73502; 96361; 96374; 96375; 99285; J7030; A4216; J2405

== ENCOUNTER → 2021-07-02 | Outpatient (CLI) | payer MEDICARE, MEDICAID, SELFPAY ==
--- NOTE | 2021-07-02 13:13 | STRESSREP ---
Stress Test Report Date: 07-02-2021 Procedure: Pharmacologic stress nuclear imaging study Indications: CAD; PCI; preoperative cardiovascular evaluation Consent: Per the patient Procedure: The patient underwent pharmacologic (Regadenoson 0.4mg ) evaluation with a peak heart rate of 93 beats per minute (56%predicted maximal heart rate) and a peak blood pressure of 118/80 mmHg. The baseline ECG demonstrated normal sinus rhythm; poor R wave progression. The peak pharmacologic ECG demonstrated no obvious ECG changes. There were no cardiac dysrhythmias pretest, during pharmacologic infusion, or recovery. There was no complaint of chest discomfort during pharmacologic infusion or recovery. The examination was discontinued secondary to completion of protocol. Impression: 1. Pharmacologic (Regadenoson) evaluation 2. Peak pharmacologic ECG with no obvious ECG changes. 3. There were no cardiac dysrhythmias pretest, during pharmacologic infusion, or recovery. 4. Nuclear images pending Myocardial perfusion imaging study: Technique: The patient was injected with 14.7 millicuries of technetium 99m Cardiolite and subsequently rest SPECT Cardiolite nuclear imaging was obtained in the horizontal long, vertical long, and short axis views. The patient underwent pharmacologic (Regadenoson) evaluation with a peak heart rate of 93 beats per minute (56% percent predicted maximal heart rate) and a peak blood pressure of 118/80 mmHg. The patient was injected with 44.6 millicuries of technetium 99m Cardiolite and subsequently stress SPECT Cardiolite nuclear imaging was obtained in the horizontal long, vertical long, and short axis views. A gated Cardiolite study at peak stress was obtained. Interpretation: Rest and stress SPECT Cardiolite nuclear imaging status post realignment, normalization, and attenuation correction demonstrate the appearance of body motion during image acquisition and the appearance of an area of diminished tracer uptake in the mid to distal anterior segments at rest and at stress which appear to be somewhat more prominent following stress as opposed to rest. There is end systolic thickening and brightening. The gated Cardiolite study demonstrates myocardial thickening and inward wall motion. The reported LVEF is 60%. Impression: 1. Rest and stress SPECT current nuclear imaging study demonstrate the appearance of body motion during image acquisition as well as myocardial perfusion changes both at rest and stress potentially compatible with an area of previous myocardial injury/infarction involving portions of the mid to distal anterior segments with post-rest myocardial perfusion changes being somewhat more prominent potentially compatible with wally-infarct related myocardial ischemia, however, an element of shifting body motion effect during image acquisition cannot necessarily be excluded. 2. The gated Cardiolite study reports an LVEF of 60%. This note was generated with [employer] software. It may contain incorrect words, spelling, and punctuation that were not noted in checking the note before signing.
== END | disposition home or self-care (01) ==
LOC: CVS 06:11
PROVIDERS: PCP Family Medicine; Referring Provider Internal Medicine Cardiovascular Disease; Visit Provider Internal Medicine Cardiovascular Disease
DX: Z01.818 Encounter for other preprocedural examination (principal); Z95.5 Presence of coronary angioplasty implant and graft
CPT/HCPCS: 78452; 93017; A9500; A4216; J2785

== ENCOUNTER 2021-07-05 06:55 | Day surgery (SDC) | payer MEDICARE, MEDICAID, SELFPAY ==
--- NOTE | 2021-07-04 08:59 | PCM.HP.BLA ---
History and Physical Date of Admission: 07/05/21 [facility] [address] [place] [address] [phone] OFFICE VISITDate of Service: 06/30/21 MR#:[id number]: TALAT HAN #:[id number]:[id number] Provider:Dr. Tom Dahl MDAge/Sex: 55/F [place] [place]Signed [facility] History of Present Illness Details: This is a 55-year-old white female with a past cardiovascular history which apparently had included at one point in time a Takotsubo syndrome and subsequently the development of CAD requiring multiple PCI procedures, superimposed upon PAD, hyperlipidemia, hypertension, diabetes mellitus, COPD, RACHEL, thromboembolic disease with pulmonary embolism, who is being referred for preoperative cardiovascular evaluation prior to an upcoming hip revision surgery-tentatively scheduled for 07-06-2021. It appears the patient has been previously followed by [facility] cardiology with her last visit being on 03-27-2018. At that point time she was continuing medical management with plans for a future outpatient follow-up visit. Based upon review of medical records available at this time it appears the patient has undergone noninvasive and invasive study over the years locally and at other institutions including [facility]. It appears that her most recent transthoracic echocardiogram was performed on 06-14-2021 at [facility]. At that time per the report the left ventricle was normal with an LVEF 75% with trivial AI, decreased diastolic compliance, and a negative agitated saline contrast study for interatrial shunting. It also appears at that time the patient underwent a carotid artery duplex study which reported less than 50% stenosis bilaterally. It appears the patient had a pharmacologic stress nuclear imaging study performed through the [facility] system on 08-24-2015. Per their report it was considered a normal ST segment response to stress, no arrhythmias detected, and the nuclear imaging section appears to be unavailable for review review. It appears the patient's last diagnostic cardiac catheterization was performed through the [facility] system on 11-09-2016. At that time per the report per Dr. Aaron Carney the left ventricle was normal with an LVEF 55%, the left main coronary artery was normal, the LAD had a previously placed stent which was patent, the LCx had a previously placed stent which was patent, and the RCA had a previously placed stent which was patent. It appears her last PCI procedure may have been performed at [facility] on 02-07-2011. At that time according to the cardiac catheterization/PCI report the left ventricle had an LVEF 50% with hypokinesis of the basal inferior wall. The left main coronary artery was patent. The LAD had a pre-existing stent which was patent. The LCx had a pre-existing stent which was patent. The RCA was noted to have a mid 80% stenosis. The patient subsequently had a Promus JOYCE 2.5 x 16 mm stent placed to the mid to distal RCA overlapping a previous JOYCE. The patient had an ECG in the office today. She was noted to be in sinus rhythm with poor R wave progression and low voltage QRS. The patient states that she does have symptoms of chest discomfort which she believes is related to heartburn or GERD. She states that it is in the center of her chest. She believes it improves with an antacid. She states this is somewhat different from some of her previous cardiac events where she had heartburn but also left upper extremity discomfort. However, at the same time, she does not recall all the symptoms she has had with all of her previous cardiovascular events. She states she does get short of breath and dyspneic with activity. She denies ongoing orthopnea or PND. She has a trace amount of lower extremity peripheral pitting edema. She has had no report of near syncope or syncope. She states she takes her medications as prescribed. Intake Vital Signs 06/30/21 11:00 Height 5 ft 3 in Weight: 215 lb 3 oz BMI 38.1 BP 102/56 L Blood Pressure Location Lt brachial Position Sitting Respiration 18 Pulse 56 L Pulse Source Auscultation Intake Visit Reasons: CARDIAC CLEARANCE/REF. LAED Automation Tender Required: No Accompanied by: Self Allergies tramadol [From Ultram] Allergy (Severe, Verified 06/30/21 11:00) Blisters, itching amoxicillin Allergy (Verified 06/30/21 11:00) Itching erythromycin base Allergy (Verified 06/30/21 11:00) Unknown methadone Allergy (Verified 06/30/21 11:00) Itching metolazone Allergy (Verified 06/30/21 11:00) Unknown Penicillins Allergy (Verified 06/30/21 11:00) Hives Sulfa (Sulfonamide Antibiotics) Allergy (Verified 06/30/21 11:00) Hives clarithromycin [From Biaxin] Adverse Reaction (Verified 06/30/21 11:00) Nausea ibuprofen Adverse Reaction (Verified 06/30/21 11:00) 3 BLEEDING ULCERS morphine Adverse Reaction (Verified 06/30/21 11:00) HEADACHE oxycodone [From Percocet] Adverse Reaction (Verified 06/30/21 11:00) Itching Medications atorvastatin 80 mg PO QHS 08/22/15 [History Confirmed 06/30/21] pregabalin 75 mg PO TID 03/08/18 [History Confirmed 06/30/21] risperidone 4 mg PO QHS 03/08/18 [History Confirmed 06/30/21] trazodone 200 mg PO QHS PRN 03/08/18 [History Confirmed 06/30/21] furosemide 20 mg PO DAILY 11/20/18 [History Confirmed 06/30/21] mirabegron 25 mg PO DAILY 11/20/18 [History Confirmed 06/30/21] apixaban 5 mg PO BID 05/02/19 [History Confirmed 06/30/21] buspirone 30 mg tablet 30 mg PO BID tab 06/27/19 [History Confirmed 06/30/21] tiotropium bromide 2.5 mcg/actuation mist for inhalation 2 puff INHALATION DAILY #4 g 09/30/19 [Rx Confirmed 06/30/21] clopidogrel 75 mg PO DAILY 07/31/20 [History Confirmed 06/30/21] Advair HFA 2 puff INHALATION BID 11/14/20 [History Confirmed 06/30/21] albuterol sulfate 2 puff IH Q4H PRN PRN 11/14/20 [History Confirmed 06/30/21] escitalopram oxalate 20 mg PO DAILY 11/14/20 [History Confirmed 06/30/21] fluticasone propionate 1 spray INTRANASAL BID 11/14/20 [History Confirmed 06/30/21] promethazine 25 mg PO BID PRN PRN 11/14/20 [History Confirmed 06/30/21] potassium chloride [K-Tab] 40 meq PO DAILY 01/13/21 [History Confirmed 06/30/21] alendronate 70 mg PO QWEEK 05/21/21 [History Confirmed 06/30/21] amlodipine 10 mg PO DAILY 05/21/21 [History Confirmed 06/30/21] lamotrigine 150 mg PO DAILY 05/21/21 [History Confirmed 06/30/21] lisinopril 20 mg PO QHS 05/21/21 [History Confirmed 06/30/21] metoprolol succinate 50 mg PO DAILY 05/21/21 [History Confirmed 06/30/21] omeprazole 20 mg PO DAILY 05/21/21 [History Confirmed 06/30/21] baclofen 10 mg PO Q8H PRN PRN #0 tab 05/22/21 [Rx Confirmed 06/30/21] albuterol sulfate 2.5 mg INHALATION Q4H PRN #180 ml 05/25/21 [Rx Confirmed 06/30/21] hydrocodone-acetaminophen 1 tab PO Q4H PRN PRN 2 Days #10 tablet 05/26/21 [Rx Confirmed 06/30/21] insulin lispro 100 unit/mL subcutaneous half-unit pen 10 unit SUBCUT TID ml 06/29/21 [History Confirmed 06/30/21] montelukast 10 mg tablet 10 mg PO DAILY 06/29/21 [History Confirmed 06/30/21] insulin glargine 100 unit/mL (3 mL) subcutaneous pen 30 unit SUBCUT BID ml 06/30/21 [History Confirmed 06/30/21] PFS Medical History (Updated 06/30/21 @ 11:[address] Tom Dahl MD) Anemia Asthma Atherosclerotic heart disease of [place] coronary artery without angina pectoris Benign essential hypertension BiPAP (biphasic positive airway pressure) dependence Bleeding tendency CAD (coronary artery disease) Chest pain Chest pain at rest Chronic cough Chronic narcotic use Closed fracture of proximal end of fibula COPD (chronic obstructive pulmonary disease) Current use of insulin Delayed surgical wound healing Diabetes Emphysema of lung Gastroesophageal reflux disease High cholesterol Hip osteoarthritis History of pulmonary embolism History of stress test Hypertension Irregular heart beat Irritable bowel Morbid obesity Morbid obesity with BMI of 45.0-49.9, adult Myocardial infarct On home oxygen therapy RACHEL (obstructive sleep apnea) Pancreatitis Peptic ulcer Preoperative cardiovascular examination Presence of stent in coronary artery (~02/07/11) Pulmonary hypertension Schizoaffective disorder Schizophrenia Sleep apnea Smoker Spinal stenosis of lumbar region at multiple levels Stage 2 moderate COPD by GOLD classification Suspected COVID-19 virus infection Takotsubo cardiomyopathy Thyroid nodule Tobacco abuse Ulcer Vitamin D deficiency Surgical History History of appendectomy History of carpal tunnel surgery of left wrist History of cholecystectomy History of gastric bypass History of gastric bypass History of right ankle surgery history of right hip surgery History of tonsillectomy Presence of coronary angioplasty implant and graft (~02/07/11) Family History Mother Heart disease Cancer uterine Father Hypertension Arthritis Hyperlipemia Grandmother Breast cancer Heart disease Grandfather Heart disease Sister Hypertension Social History household members: none Smoking Status: Current every day smoker tobacco type: cigarettes alcohol intake: never substance use type: does not use caffeine: Yes (occasional) what type of physical activity do you participate in: none ROS Const Const: Positive for fatigue (increased) and weakness (Rt hip/Lt ankle; generalized); Negative for headache(s), frequent falls, excessive sweating, weight gain or weight loss Eyes Eyes: Negative for transient loss of vision, blurry vision, change in vision or double vision ENT ENT: Positive for dizziness (occasional random) and balance problems (ambulates with a walker); Negative for headache(s) Cardio Chest Pain: Yes (occasional) Character: sharp Onset: at rest Location: mid sternal Duration: hours (couple) Relieving: rest Palpitations: Yes (occasional) feels like its: thumping and pounding Edema: None Muscle aches with walking: None Resp Respiratory: Positive for SOB with activity (baseline), SOB at rest (baseline), SOB orthopnea\SOB lying down (wears oxygen @ night 3LNC/ BIPAP @ night) and Cough (morning productive cough) GI GI: Negative vomiting or vomiting blood/hematemesis : Negative for hematuria Musc Musc: Positive for joint pain (Rt Hip/Lt ankle) and balance problems (ambulates with a walker); Negative for muscle aches/ myalgia or muscle weakness Skin Skin: Negative non-healing lesions or rash Neuro Neuro: Positive for dizziness (occasional random) and weakness (Rt hip/Lt ankle; generalized); Negative for lightheadedness, near syncope, syncope, orthostatic symptoms, frequent falls, headache(s), confusion, memory loss, restless legs, blurry vision, double vision, vertigo, seizures, lack of coordination or other Vel Hematologic/Lymphatic: Negative for easy bleeding Endo Endo: Positive for fatigue (increased); Negative for excessive sweating Psych Psych: Negative for anxiety or depression Allergy Allergy/Immunology: Negative for hives and Negative for rash Cardiology Exam Const Appearance: cooperative, healthy appearing, comfortable, no acute distress, well developed and well groomed Nutritional Appearance: obese Orientation: alert, awake and oriented x3 Head Head: normal to inspection, normocephalic and atraumatic Ears: hearing grossly normal bilaterally Nose: external nose normal Face and Sinus: face symmetric Eyes Eyelids: eyelids normal Conjunctivae: conjunctivae normal Pupils: PERRL EOM: EOM intact bilaterally Neck Neck: normal visual inspection and full ROM Carotids: bruit Bilateral Chest Chest inspection: normal inspection of the chest, symmetric chest movement and normal respiratory effort Auscultation: Bilateral: Clear to Auscultation Cardio Rate: regular rate Rhythm: regular rhythm Heart sounds: S1 normal, S2 normal and murmur Murmur: Grade 2/6, mid systolic, LLSB, LVOT and sternal notch GI GI: normal to inspection, soft, bowel sounds present and obese Neuro General: patient alert, patient awake, patient oriented x3 and moves all extremities Skin Skin: no rashes or lesions noted Extremities Pulses: Normal: Right Radial Pulse and Left Radial Pulse Lower Extremity Edema: Trace: Bilateral Psych Psychological: normal affect Supplemental Info Supplemental Information Echocardiogram: 06/14/2021 Interpretation Summary Normal LV size. Left ventricular systolic function is normal. The estimated ejection fraction is 75 %. Bubble contrast study negative for right to left interatrial shunt. Stage 1 diastolic dysfunction. Contrast injection was performed. Labs: LDL Cholesterol 63 mg/dL (0-130) HDL Cholesterol 51 mg/dL (40-) Triglycerides 145 mg/dL (-199) VLDL Cholesterol 29 mg/dL (5-40) Diagnostics: Electrocardiogram Echocardiogram Stress Test NM Chest X-Ray Pulmonary: Pulmonary Function Test Pulmonary Exercise Test Assessment and Plan Assessment and Plan (1) Takotsubo cardiomyopathy: Status: Acute Orders: Orders: 12 Lead EKG performed by [facility] [place] Today Plan - Dr. Tom Dahl MD: At the moment it appears she is doing well with no obvious evidence of ongoing diminished LV systolic function/LVEF based upon her recent noninvasive studies. She will continue medical management. (2) Atherosclerotic heart disease of [place] coronary artery without angina pectoris: Status: Acute Orders: Orders: 12 Lead EKG performed by [facility] Today Plan - Dr. Tom Dahl MD: She has a history of extensive underlying CAD. She is gone through multiple invasive procedures as noted. She is continuing medical therapy at this time. (3) Presence of stent in coronary artery: Status: Acute Comment: PCI/JOYCE from the mid to distal RCA overlapping prior stent 02/07/11 @ [facility] ;PCI/JOYCE to distal RCA 10/27/10 @ [facility] ;PCI/JOYCE to mid to distal LCX, and PCI/JOYCE to mid LAD and diagonal branch of LAD 12/2007 @ [facility] Orders: Orders: 12 Lead EKG performed by [facility] [place] Nuclear Stress Test - [facility] Today Plan - Dr. Tom Dahl MD: Her most recent PCI report available for review was noted. She will continue medical therapy. (4) Hyperlipidemia: Status: Chronic Plan - Dr. Tom Dahl MD: She should continue risk factor modification medical management. (5) COPD (chronic obstructive pulmonary disease): Status: Chronic Plan - Dr. Tom Dahl MD: She has a history of COPD. This does have to be taken into consideration by her other physicians with respect to upcoming surgery with respect to general anesthesia, etc. (6) Chest pain at rest: Status: Acute Plan - Dr. Tom Dahl MD: She does have chest discomfort which occurs at rest. Some of the features are concerning for angina pectoris. This is superimposed upon a history of extensive underlying CAD/PCI procedures. This also occurs in the setting of the need for future upcoming orthopedic surgery with general anesthesia. Thus at the present time it is felt prudent that she should undergo further noninvasive evaluation such as a pharmacologic stress nuclear imaging study to reassess her coronary physiology and whether or not she needs repeat invasive evaluation prior to such a procedure-noncardiac surgical procedure. (7) Preoperative cardiovascular examination: Status: Acute Plan - Dr. Tom Dahl MD: From a standpoint of preoperative evaluation, she will continue her current medical therapy, she will proceed with a noninvasive evaluation as noted above. Depending upon the findings she may or may not need further cardiac evaluation prior to her upcoming noncardiac surgery. At the time of her noncardiac surgery she should continue medical therapy in and around the time of her surgery as best as possible. If she does require temporary interruption of her antiplatelet therapy, as she is greater than a year since her most recent PCI, she should be able to do this. Adjustment of her anticoagulant therapy should be governed by her other physicians who monitor her anticoagulation status. She should have close monitoring of her cardiac rate, rhythm, and blood pressure during and following her surgical procedure. An attempt should be made to avoid significant fluctuations in her volume status during and following her surgical procedure. Hopefully if she is symptomatically stable and has no acute objective cardiovascular findings she will be able to get through her surgical procedure without any adverse cardiovascular [id number] there is no guarantees. The above was discussed with her and she was agreeable to this approach. Plan Details Additional Comments: Thank you for allowing me to participate in the care of your patient. Please don't hesitate to call if any issues arise. This note was generated using a voice recognition system and there may be incorrect words, spelling or punctuation that were not noted when reviewing the office note prior to saving. Follow Up: 6 Months (PFM ) COVID (Procedure Consent) Procedure Criteria Procedure Criteria: Yes Elective The surgeon/proceduralist and patient have discussed in detail the risk of exposure to and/or potential harm posed by the COVID-19 virus with having a surgery/procedure at this time versus the risk of delaying the surgery/procedure. It is not possible to know either the risk of delaying the surgery or procedure or chance of getting an infection with perfect accuracy, but a joint decision was made between the patient and the surgeon/proceduralist to proceed at this time with the scheduled surgery/procedure as indicated on the consent form. Coding Level of Care Code Off vis,new,level 5 Diagnoses Takotsubo cardiomyopathy I51.81 Atherosclerotic heart disease of [place] coronary artery without angina pectoris I25.10 Presence of stent in coronary artery Z95.5 Hyperlipidemia E78.5 COPD (chronic obstructive pulmonary disease) J44.9 Chest pain at rest R07.9 Preoperative cardiovascular examination Z01.810 Coding Level of Care Code Off vis,new,level 5 Diagnoses Takotsubo cardiomyopathy I51.81 Atherosclerotic heart disease of [place] coronary artery without angina pectoris I25.10 Presence of stent in coronary artery Z95.5 Hyperlipidemia E78.5 COPD (chronic obstructive pulmonary disease) J44.9 Chest pain at rest R07.9 Preoperative cardiovascular examination Z01.810 06/30/21 1247<Electronically signed by Tom Dahl MD>Date Tom Dahl MD Cosigner Signature:Date (if applicable) CC: Dr. Janel Taylor MD ~ Assessment & Plan Addt'l Comments Addendum: The patient has undergone further preoperative cardiovascular evaluation with a pharmacologic stress nuclear imaging study on 07-02-2021. The results are noted below. Stress Test Report Date: 07-02-2021 Procedure: Pharmacologic stress nuclear imaging study Indications: CAD; PCI; preoperative cardiovascular evaluation Consent: Per the patient Procedure: The patient underwent pharmacologic (Regadenoson 0.4mg ) evaluation with a peak heart rate of 93 beats per minute (56%predicted maximal heart rate) and a peak blood pressure of 118/80 mmHg. The baseline ECG demonstrated normal sinus rhythm; poor R wave progression. The peak pharmacologic ECG demonstrated no obvious ECG changes. There were no cardiac dysrhythmias pretest, during pharmacologic infusion, or recovery. There was no complaint of chest discomfort during pharmacologic infusion or recovery. The examination was discontinued secondary to completion of protocol. Impression: 1. Pharmacologic (Regadenoson) evaluation 2. Peak pharmacologic ECG with no obvious ECG changes. 3. There were no cardiac dysrhythmias pretest, during pharmacologic infusion, or recovery. 4. Nuclear images pending Myocardial perfusion imaging study: Technique: The patient was injected with 14.7 millicuries of technetium 99m Cardiolite and subsequently rest SPECT Cardiolite nuclear imaging was obtained in the horizontal long, vertical long, and short axis views. The patient underwent pharmacologic (Regadenoson) evaluation with a peak heart rate of 93 beats per minute (56% percent predicted maximal heart rate) and a peak blood pressure of 118/80 mmHg. The patient was injected with 44.6 millicuries of technetium 99m Cardiolite and subsequently stress SPECT Cardiolite nuclear imaging was obtained in the horizontal long, vertical long, and short axis views. A gated Cardiolite study at peak stress was obtained. Interpretation: Rest and stress SPECT Cardiolite nuclear imaging status post realignment, normalization, and attenuation correction demonstrate the appearance of body motion during image acquisition and the appearance of an area of diminished tracer uptake in the mid to distal anterior segments at rest and at stress which appear to be somewhat more prominent following stress as opposed to rest. There is end systolic thickening and brightening. The gated Cardiolite study demonstrates myocardial thickening and inward wall motion. The reported LVEF is 60%. Impression: 1. Rest and stress SPECT current nuclear imaging study demonstrate the appearance of body motion during image acquisition as well as myocardial perfusion changes both at rest and stress potentially compatible with an area of previous myocardial injury/infarction involving portions of the mid to distal anterior segments with post-rest myocardial perfusion changes being somewhat more prominent potentially compatible with wally-infarct related myocardial ischemia, however, an element of shifting body motion effect during image acquisition cannot necessarily be excluded. 2. The gated Cardiolite study reports an LVEF of 60%. Based upon the aforementioned evaluation and care the patient has been recommended for further evaluation with diagnostic cardiac catheterization. The procedure and risk were discussed with her. She was agreeable to this approach. Addendum: 07-05-2021: I have re-examined the patient. There are no clinical changes since date of exam This note was generated using a voice recognition system and there may be incorrect words, spelling or punctuation that were not noted when reviewing the office note prior to saving.
[2021-07-05 06:45] VITALS: BMI 38.1
[2021-07-05 07:26] LABS: Anion Gap 2 (5-15); BUN 8 mg/dL (7-18); BUN/Creat Ratio 11.4 RATIO (10-20); Calcium,Total 9.4 mg/dL (8.5-10.1); Chloride 109 mmol/L (98-107); EST Glomerular Filtration Rate 92 mL/min (>60); Est Glom Filt Rate - Afr Amer 111 mL/min (>60); Estimated Creatinine Clearance 75.12 ml/min; Glucose 142 mg/dL (74-106); Potassium 4.2 mmol/L (3.5-5.1); Sodium Level 138 mmol/L (136-145)
--- NOTE | 2021-07-05 08:36 | CL.D_ITS ---
Patient Name: TALAT HAN Study Date: 07/05/2021 Performing: Tom Dahl MD Ht: 62.99 inches 160 cm : 1965 Wt: 216.05 lbs 98 kg Age: 55 Gender: female BSA: 2 PROCEDURE(S) PERFORMED [id number])LHC/COR/LV CLINICAL PROFILE AND INDICATIONS Indications: Suspected CAD Heart Failure: None Stress/Imaging Date: 07/02/2021tress Test with SPECT MPI: Positive Intermediate Risk Angina Classification Anginal Classification w/in 2 Weeks: Anginal Equivalent Dyspnea CAD Presentations: Other: chest discomfort / dyspnea on exertion CONCLUSIONS Elevated Left Ventricular End Diastolic Pressure Normal LV size, wall motion,and systolic function LVEF: by LV gram 65 % [place] Multivessel CAD LAD: stent: patent LCX: stent: patent RCA: stent: patent RECOMMENDATIONS Risk factor modification Medical therapy DESCRIPTION OF PROCEDURE The patient arrived to the procedure lab. The risks and benefits of the procedure as well as a full d escription of our services here and current unavailability of surgical backup were fully explained to the patient and/or their significant other prior to the catheterization. The Timeout was completed, verifying the correct patient and procedure. The patient's procedural site was prepped and draped in the usual fashion. Local anesthetic was given subcutaneously to right radial region with Lidocaine 2% . Using a modified Seldinger technique, arterial access was obtained via the right radial artery, a 6 Fr sheath was inserted. Left Coronary Artery selective angiography was performed in multiple views u sing a 5 Fr. 4.0 [place] catheter. Right Coronary Artery selective angiography was then performed in mu ltiple views using a 5 Fr. 4.0 [place] catheter. Left Ventriculography was performed in ARREDONDO projection using a 5 Fr. [place] catheter. LV to AO pullback pressures were then recorded.The arterial sheath was pulled and a TR Band was applied for hemostasis CORONARY ANGIOGRAPHY DOMINANCE: Left Dominant LEFT HEART ASSESSMENT Left Ventricular Ejection Fraction: by LV Gram 65 % Normal LV wall motion Elevated Left Ventricular End Diastolic Pressure LVEDP: 25 mmHg LEFT MAIN: Angiographically normal LEFT ANTERIOR DESCENDING ARTERY: MID LAD: Previously placed stent is patent, Mild luminal irregularities CIRCUMFLEX ARTERY: PROX CIRC: Previously placed stent is patent MID CIRC: Previously placed stent is patent DISTAL CIRC: Mild luminal irregularities RIGHT CORONARY ARTERY: Mild luminal irregularities PROX RCA: Mild calcification MID RCA: Previously placed stent is patent AORTIC ROOT: Angiographically normal COMPLICATIONS No Complications PROCEDURE MEDICATIONS Fentanyl 50 mcg IV Versed 1 mg IV Fentanyl 50 mcg IV Versed 1 mg IV Oxygen: 2 L/min via nasal cannula Heparin given IA 07/05/2021 08:10:18 Verapamil 2.5mg, Ntg 100mcgs, 3000 units of Heparin given IA 07/05/2021 08:10:18 SUMMARY OF HEMODYNAMIC DATA Time AIR REST ECG 07:28:18 Art 137/60 (87) 08:02:21 AO 99/54 (71) SA 08:14:39 LV 122/-1, 28 08:19:14 LV 120/4, 25 08:19:22 LV 126/6, 31 08:20:16 LV 128/1, 30 08:20:25 LVp 127/0, 29 08:20:30 AOp 104/57 (75) 08:20:37 RM AIR REST 08:32:54 Signed By Tom Dahl MD On 07/05/2021 08:35:51 Tom Dahl MD
== END 2021-07-05 12:30 | disposition home or self-care (01) ==
LOC: CLSP 06:58
PROVIDERS: PCP Family Medicine; Referring Provider Internal Medicine Cardiovascular Disease; Visit Provider Internal Medicine Cardiovascular Disease
DX: I25.118 Atherosclerotic heart disease of native coronary artery with other forms of angina pectoris (principal); F25.9 Schizoaffective disorder, unspecified; J44.9 Chronic obstructive pulmonary disease, unspecified; I10 Essential (primary) hypertension; E78.00 Pure hypercholesterolemia, unspecified; I51.81 Takotsubo syndrome; G47.33 Obstructive sleep apnea (adult) (pediatric); I25.2 Old myocardial infarction; F17.210 Nicotine dependence, cigarettes, uncomplicated; E66.9 Obesity, unspecified; K21.9 Gastro-esophageal reflux disease without esophagitis; Z79.899 Other long term (current) drug therapy; Z86.711 Personal history of pulmonary embolism; Z99.81 Dependence on supplemental oxygen; Z95.5 Presence of coronary angioplasty implant and graft
CPT/HCPCS: 36415; 80048; 93458; 99152; 99153; J7040; C1769; C1894; J2405; Q9967

== ENCOUNTER 2021-07-07 18:12 | Inpatient (IN) | payer MEDICARE, MEDICAID, SELFPAY ==
[2021-07-07] VITALS (19 sets, daily range): BP systolic 56–108; BP diastolic 35–61; PULSE 45–60; RESP 11–18; TEMP 36.2–36.6; O2SAT 90–98; BMI 40.4; BMI 38.1
[2021-07-07 18:20] LABS: Bedside Glucose 194 mg/dL (74-106)
--- NOTE | 2021-07-07 18:28 | EKG12_ITS ---
Test Reason : FALL Blood Pressure : / mmHG Vent. Rate : 050 BPM Atrial Rate : 050 BPM P-R Int : 142 ms QRS Dur : 090 ms QT Int : 494 ms P-R-T Axes : 044 034 021 degrees QTc Int : 450 ms Sinus bradycardia Low voltage QRS Borderline ECG Confirmed by MIGUEL TAFOYA, MOY ([id number]), sports editor MARTHA SCOTT ([id number]) on 07/09/2021 9:41:06 AM Referred By: MARY Confirmed By:PALOMA RIVERA MD
--- NOTE | 2021-07-07 18:29 | EX.ED.DYSGE1 ---
HPI History of Present Illness Chief Complaint: Fall Informant: patient and EMS Narrative Narrative: Patient has a history of chronically recurring right hip dislocations. She had surgery to revise her right hip yesterday at [facility] Dr. Yung. Prior to this to clear for surgery, she had a stress test that she failed and subsequently had a heart catheterization earlier this week. She was subsequently cleared for surgery, the heart catheterization was performed here. Since her surgery yesterday, she has been at home by herself, and she states she has been walking and getting around well. She was sitting and got up to go to the bathroom, and she felt very lightheaded and nearly passed out, causing her to fall to the floor without injury. She felt so weak after that that she was unable to get up on her own and called EMS with her [employer] alert system. She states she had no other prodromal symptoms other than the lightheadedness after she stood up. She has eaten drink today. On the way here via EMS patient states she developed chest heaviness substernal nonpleuritic that lasted about 15 minutes and self-resolved prior to getting here to the hospital. She states at this time she has no chest discomfort and still feels lightheaded but not as bad as earlier. She denies any dyspnea or other new symptoms including neurologic symptoms, she does have a peripheral neuropathy in both feet that is unchanged. [facility] Medical History Anemia Asthma Atherosclerotic heart disease of [place] coronary artery without angina pectoris Benign essential hypertension BiPAP (biphasic positive airway pressure) dependence Bleeding tendency CAD (coronary artery disease) Chest pain Chest pain at rest Chronic cough Chronic narcotic use Closed fracture of proximal end of fibula COPD (chronic obstructive pulmonary disease) Current use of insulin Delayed surgical wound healing Diabetes Emphysema of lung Gastroesophageal reflux disease High cholesterol Hip osteoarthritis History of left heart catheterization (LHC) (~07/05/21) History of pulmonary embolism History of stress test Hypertension Irregular heart beat Irritable bowel Morbid obesity Morbid obesity with BMI of 45.0-49.9, adult Myocardial infarct On home oxygen therapy RACHEL (obstructive sleep apnea) Pancreatitis Peptic ulcer Preoperative cardiovascular examination Presence of stent in coronary artery (~02/07/11) Pulmonary hypertension Schizoaffective disorder Schizophrenia Sleep apnea Smoker Spinal stenosis of lumbar region at multiple levels Stage 2 moderate COPD by GOLD classification Suspected COVID-19 virus infection Takotsubo cardiomyopathy Thyroid nodule Tobacco abuse Ulcer Vitamin D deficiency Home Medications atorvastatin 80 mg PO QHS 08/22/15 [History Last Taken 03/15/21] pregabalin 75 mg PO TID 03/08/18 [History Last Taken 03/15/21] risperidone 4 mg PO QHS 03/08/18 [History Last Taken 03/15/21] trazodone 200 mg PO QHS PRN 03/08/18 [History Last Taken 03/15/21] furosemide 20 mg PO DAILY 11/20/18 [History Last Taken 03/15/21] mirabegron 25 mg PO DAILY 11/20/18 [History Last Taken 03/15/21] apixaban 5 mg PO BID 05/02/19 [History Last Taken 07/01/21] buspirone 30 mg tablet 30 mg PO BID tab 06/27/19 [History Last Taken 07/05/21] tiotropium bromide 2.5 mcg/actuation mist for inhalation 2 puff INHALATION DAILY #4 g 09/30/19 [Rx Last Taken 07/05/21] clopidogrel 75 mg PO DAILY 07/31/20 [History Last Taken 07/01/21] Advair HFA 2 puff INHALATION BID 11/14/20 [History Last Taken 03/15/21] albuterol sulfate 2 puff IH Q4H PRN PRN 11/14/20 [History Last Taken Unknown] escitalopram oxalate 20 mg PO DAILY 11/14/20 [History Last Taken 07/05/21] fluticasone propionate 1 spray INTRANASAL BID 11/14/20 [History Last Taken 03/15/21] promethazine 25 mg PO BID PRN PRN 11/14/20 [History Last Taken Unknown] potassium chloride [K-Tab] 40 meq PO DAILY 01/13/21 [History Last Taken 03/15/21] amlodipine 10 mg PO DAILY 05/21/21 [History Last Taken 07/05/21] lamotrigine 150 mg PO DAILY 05/21/21 [History Last Taken 07/05/21] lisinopril 20 mg PO QHS 05/21/21 [History Last Taken Unknown] metoprolol succinate 50 mg PO DAILY 05/21/21 [History Last Taken 07/05/21] omeprazole 20 mg PO DAILY 05/21/21 [History Last Taken Unknown] albuterol sulfate 2.5 mg INHALATION Q4H PRN #180 ml 05/25/21 [Rx Last Taken Unknown] hydrocodone-acetaminophen 1 tab PO Q4H PRN PRN 2 Days #10 tablet 05/26/21 [Rx Last Taken Unknown] montelukast 10 mg tablet 10 mg PO DAILY 06/29/21 [History Last Taken 07/05/21] Allergy/AdvReac Type Severity Reaction Status Date / Time tramadol [From Ultram] Allergy Severe Blisters, Verified 07/07/21 18:14 itching amoxicillin Allergy Itching Verified 07/07/21 18:14 erythromycin base Allergy Unknown Verified 07/07/21 18:14 methadone Allergy Itching Verified 07/07/21 18:14 metolazone Allergy Unknown Verified 07/07/21 18:14 Penicillins Allergy Hives Verified 07/07/21 18:14 Sulfa (Sulfonamide Allergy Hives Verified 07/07/21 18:14 Antibiotics) clarithromycin [From Biaxin] AdvReac Nausea Verified 07/07/21 18:14 ibuprofen AdvReac 3 BLEEDING Verified 07/07/21 18:14 ULCERS morphine AdvReac HEADACHE Verified 07/07/21 18:14 oxycodone [From Percocet] AdvReac Itching Verified 07/07/21 18:14 Family History Mother Heart disease Cancer uterine Father Hypertension Arthritis Hyperlipemia Grandmother Breast cancer Heart disease Grandfather Heart disease Sister Hypertension Surgical History History of appendectomy History of carpal tunnel surgery of left wrist History of cholecystectomy History of gastric bypass History of gastric bypass History of right ankle surgery history of right hip surgery History of tonsillectomy Presence of coronary angioplasty implant and graft (~02/07/11) Social History household members: none Smoking Status: Current every day smoker tobacco type: cigarettes alcohol intake: never substance use type: does not use caffeine: Yes (occasional) what type of physical activity do you participate in: none ROS ROS ED Constitutional Constitutional ED: Denies chills or fever(s) Eyes Eyes: Denies change in vision or diplopia ENT ENT ED: Denies rhinorrhea or sore throat Cardiovascular Cardiovascular: Reports as per HPI and chest pain; Denies dyspnea or palpitations Respiratory/Chest Respiratory/Chest: Denies cough or dyspnea Gastrointestinal Gastrointestinal: Denies abdominal pain, diarrhea, nausea or vomiting Genitourinary Genitourinary ED: Denies dysuria or hematuria Musculoskeletal Musculoskeletal: Denies back pain or neck pain Integumentary Denies abscess or rash Neurologic Neurologic: Reports dizziness and other Details: Chronic numbness both feet, no other focal sensory symptoms ; Denies disequilibrium, headache(s) or weakness Psychiatric Psychiatric: Denies anxiety or suicidal thoughts EXAM Physical Exam Const Vital Signs: 07/07/21 18:14 07/07/21 18:25 07/07/21 18:30 Temperature 97.8 F Temperature Source Temporal Pulse Rate 57 L 54 L 53 L Respiratory Rate 14 18 11 L Blood Pressure 56/35 L 61/38 L 86/54 L Blood Pressure Mean 42 45 64 Pulse Ox 96 96 94 Oxygen Delivery Method Room Air Room Air Room Air 07/07/21 18:37 07/07/21 19:35 07/07/21 19:48 Temperature 97.5 F L Temperature Source Temporal Pulse Rate 52 L 47 L 49 L Respiratory Rate 16 16 Blood Pressure 90/49 L 79/61 L 94/57 L Blood Pressure Mean 62 67 69 Pulse Ox 98 95 Oxygen Delivery Method Room Air Room Air 07/07/21 20:13 Temperature Temperature Source Pulse Rate 46 L Respiratory Rate Blood Pressure 81/57 L Blood Pressure Mean 65 Pulse Ox Oxygen Delivery Method Positive well nourished, well developed and obese General Appearance ED: well developed and NAD Nutritional Appearance: obese HEENT Reports moist mucous membranes normocephalic and atraumatic Eyes PERRL and EOMs intact bilaterally Neck full ROM and supple Resp normal respiratory effort and clear to auscultation bilaterally Cardio regular rate, regular rhythm and no murmurs Rate: Negative for bradycardia or tachycardic GI non-tender and non-distended Auscultation: normoactive bowel sounds Palpation: soft Back/Spine no CVA tenderness General Back: other FROM Extremity normal to inspection Extremity Narrative: Full range of motion including the right hip without any pain or difficulty General Extremety ED: Yes edema; Negative for pulses abnormal or tenderness General Extremity: edema bilateral lower extremity Details: mild (Symmetric bilaterally, compression stockings in place); Negative for pulses abnormal Neuro oriented x3, CN's II-XII intact bilaterally and no sensory deficits noted Sensorium / Orientation: awake and alert Motor Exam: strength 5/5 throughout Skin no rashes or lesions noted and no wounds MDM MDM MDM Narrative Medical decision making narrative: Patient is keenly alert and conversive in full sentences, however she is very hypotensive. After obtaining blood, I had nurses lie her down and establish an IV fluid bolus while we were obtaining a work-up. Septic work-up was ordered, which returns unremarkable except for significant anemia at 7.4 which is a big change compared with her prior of 11.4, 3 weeks ago. After 2 L of IV fluid, her pressure is up now to 96/64. She is feeling weak and tired but has no other focal symptoms right now. Given her hypotension and near syncope with anemia, I think she should be admitted to the hospital. After 2 L+ of fluid, I suspect her actual hemoglobin level will be lower so I sent a type and screen and consented her for transfusion if it is needed. After discussing risks and benefits, she consents to blood, and we mutually agreed to type and cross her for 2 units and expect that she will need it after the next draw. No sign of any acute infection right now. She has a mild nonspecific leukocytosis at 12.7. She does have mild ZUHAIR as well. Her lactate is elevated but this is nonspecific. Plan is admission to the ICU. At this time, the most likely etiology of her anemia is her surgery yesterday. Her surgeon is not on-call tonight. Lab Data Attestation: I reviewed the patient's lab results. Labs: Laboratory Results - last 24 hr 07/07/21 07/07/21 07/07/21 18:16 18:30 18:30 WBC 12.7 H RBC 2.76 L Hgb 7.4 L Hct 24.5 L MCV 88.8 MCH 26.8 L MCHC 30.2 L RDW Std Deviation 49.9 H RDW Coeff of [place] 15.6 H Plt Count 277 MPV 10.7 Immature Gran % (Auto) 0.600 Neut % (Auto) 73.3 H Lymph % (Auto) 16.5 L [place] % (Auto) 8.9 Eos % (Auto) 0.1 Baso % (Auto) 0.6 Absolute Neuts (auto) 9.3 H Absolute Lymphs (auto) 2.10 Nucleated RBC % 0 PT 13.6 INR 1.1 APTT 26.9 Sodium Potassium Chloride Carbon Dioxide Anion Gap BUN Creatinine Estim Creat Clear Calc Est GFR (MDRD) Af Amer Est GFR (MDRD) Non-Af BUN/Creatinine Ratio Glucose Lactic Acid Calcium Total Bilirubin AST ALT Alkaline Phosphatase Troponin I High Sens Total Protein Albumin Globulin Albumin/Globulin Ratio Urine Color Urine Clarity Urine pH Ur Specific [place] Urine Protein Urine Glucose (UA) Urine Ketones Urine Occult Blood Urine Nitrite Urine Bilirubin Urine Urobilinogen Ur Leukocyte Esterase Urine RBC Urine WBC Ur Squamous Epith Cells Urine Bacteria Hyaline Casts Urine Mucus POC Glucose 194 H 07/07/21 07/07/21 07/07/21 18:30 18:40 18:50 WBC RBC Hgb Hct MCV MCH MCHC RDW Std Deviation RDW Coeff of [place] Plt Count MPV Immature Gran % (Auto) Neut % (Auto) Lymph % (Auto) [place] % (Auto) Eos % (Auto) Baso % (Auto) Absolute Neuts (auto) Absolute Lymphs (auto) Nucleated RBC % PT INR APTT Sodium 140 Potassium 3.9 Chloride 111 H Carbon Dioxide 24.0 Anion Gap 5 BUN 8 Creatinine 1.20 H Estim Creat Clear Calc 43.82 Est GFR (MDRD) Af Amer 60 Est GFR (MDRD) Non-Af 49 L BUN/Creatinine Ratio 6.7 L Glucose 149 H Lactic Acid 3.3 H* Calcium 8.6 Total Bilirubin 0.10 L AST 15 ALT 14 Alkaline Phosphatase 100 Troponin I High Sens 6 Total Protein 5.3 L Albumin 2.4 L Globulin 2.9 Albumin/Globulin Ratio 0.8 L Urine Color Yellow Urine Clarity Clear Urine pH 5.0 Ur Specific [place] 1.015 Urine Protein Negative Urine Glucose (UA) Normal Urine Ketones Negative Urine Occult Blood Negative Urine Nitrite Negative Urine Bilirubin Negative Urine Urobilinogen Normal Ur Leukocyte Esterase Negative Urine RBC 0 SEEN Urine WBC 0 SEEN Ur Squamous Epith Cells 0 SEEN Urine Bacteria 0 SEEN Hyaline Casts 5-10 SEEN Urine Mucus 0 SEEN POC Glucose Radiography Diagnostic Testing: Clinical Impression(s) from Imaging Studies Chest X-Ray 07/07/21 19:00 IMPRESSION: 1. Mild cardiomegaly without heart failure. 2. No other evidence of active cardiopulmonary disease. 3. Mild demineralization. Electronically Signed: Aditya Green MD at 19:38 EDT , EKG Initial EKG: Attestation: I personally reviewed and interpreted this EKG as follows: Interpretation: Sinus Rhythm (rate 50) and No Acute Injury Pattern Prior EKG tracings: available for review Prior: Unchanged Critical Care Time Critical Care Time: Yes Critical care time (excluding procedures): 30-74 minutes (35 min), Including time spent:, Discussing w/Patient &/or Family/Computer Technology Teacher, Discussing w/Consultants, Arranging Admission or Transfer and Performing Direct Patient Care at Bedside Discharge Plan Dx/Rx/DC Orders Clinical Impression: Acute hypotension, Near syncope, ZUHAIR (acute kidney injury), SIRS (systemic inflammatory response syndrome), Acute blood loss anemia Disposition Disposition: Acute Care Hospital [facility]
[2021-07-07 18:43] LABS: Absolute Neutrophil Count 9.3 X10^3/uL (2.0-7.7); Basophil# 0.08 X10^3/uL; Basophil% 0.6 % (0-1); Eosinophil# 0.01 X10^3/uL; Eosinophils% 0.1 % (0-5); Hematocrit 24.5 % (37-47); Hemoglobin 7.4 g/dL (12.0-15.0); Lymphocyte % 16.5 % (19-41); Mean Corp Hgb Conc 30.2 g/dL (32-36); Mean Corpuscular Hgb 26.8 pg (27.0-32.0); Mean Corpuscular Volume 88.8 fL (81-99); Mean Platelet Vol. 10.7 fl (6.2-12.0); Monocyte# 1.13 X10^3/uL; Monocyte% 8.9 % (0-10); NRBC Flagged by Analyzer 0 % (0-5); Neutrophil # 9.31 X10^3/uL (2.7-7.7); Neutrophil % 73.3 % (47-70); Platelet Count 277 K/mm3 (150-450); RBC Distribution Width CV 15.6 % (11.6-14.6); RBC Distribution Width SD 49.9 fl (35.1-43.9); Red Blood Count 2.76 M/mm3 (4.2-5.4); White Blood Count 12.7 K/mm3 (4.4-11.0)
[2021-07-07] MEDS: 0.9% Normal Saline 1,000 ML 999 ML IV ×2 (18:52→20:00)
[2021-07-07 18:53] LABS: Bacteria 0 SEEN /hpf (None Seen); Mucous, Urine 0 SEEN /hpf (<or=2+); Red Blood Cells-Urine 0 SEEN /hpf (0-5); Squamous Epithelial Cells - UA 0 SEEN /hpf (5-10); White Blood Cells 0 SEEN /hpf (0-5)
[2021-07-07 18:59] LABS: International Normalized Ratio 1.1; Partial Thromboplast Time 26.9 Seconds (24.1-36.2); Prothrombin Time (Protime)PT. 13.6 SECONDS (11.7-14.9)
--- NOTE | 2021-07-07 19:00 | RAD_ITS ---
STUDY: AP PORTABLE UPRIGHT CHEST X-RAY OF 1859 HOURS ON 07/07/2021 REASON FOR EXAM: 55-year-old female with chest pain. TECHNIQUE: A single view AP portable upright chest x-ray was performed per protocol. COMPARISON: None. FINDINGS: Mild demineralization. Mild cardiomegaly without heart failure. No pulmonary infiltrates, atelectasis, effusion, pulmonary mass lesions. RAD/Chest 1 View (Portable) IMPRESSION: 1. Mild cardiomegaly without heart failure. 2. No other evidence of active cardiopulmonary disease. 3. Mild demineralization. Electronically Signed: Aditya Green MD at 19:38 EDT ,
[2021-07-07 19:04] LABS: ALB/GLOB Ratio 0.8 RATIO (0.9-2.4); AST(SGOT) 15 U/L (15-37); Alanine Aminotransfer ALT/SGPT 14 U/L (13-56); Albumin, Serum 2.4 g/dL (3.2-5.0); Alkaline Phosphatase 100 U/L (45-117); Anion Gap 5 (5-15); BUN 8 mg/dL (7-18); BUN/Creat Ratio 6.7 RATIO (10-20); Calcium,Total 8.6 mg/dL (8.5-10.1); Chloride 111 mmol/L (98-107); EST Glomerular Filtration Rate 49 mL/min (>60); Est Glom Filt Rate - Afr Amer 60 mL/min (>60); Estimated Creatinine Clearance 43.82 ml/min; Globulin 2.9 g/dL (2.2-4.2); Glucose 149 mg/dL (74-106); Potassium 3.9 mmol/L (3.5-5.1); Protein, Total 5.3 g/dL (6.4-8.2); Sodium Level 140 mmol/L (136-145); Troponin-I HS 6 pg/mL (3.0-54.0)
[2021-07-07 19:07] LABS: Color, Urine Yellow (Yellow); Glucose, Dipstick Normal (Normal); Ketone-Dipstick Negative (Negative); Leukocyte Esterase-Dipstick Negative /ul (Negative); Nitrite-Dipstick Negative (Negative); Occult Blood-Urine Negative /ul (Negative); Protein-Dipstick Negative (Negative); Specific Gravity, Urine 1.015 (1.002-1.030); Urine Bilirubin Dipstick Negative (Negative); Urine Clarity Clear (Clear); Urine Urobilinogen Normal (Normal)
[2021-07-07 19:14] LABS: Hyaline Cast 5-10 SEEN /lpf (0-5)
[2021-07-07 19:22] LABS: Lactic Acid 3.3 mmol/L (0.4-1.9)
--- NOTE | 2021-07-07 20:21 | PCM.HP.STD ---
HPI - General General Date of Admission: 07/07/21 Date of Service: 07/07/21 Chief Complaint: Fall, recent hip replacement HPI Narrative The patient is a 55 y/o F w/ PMHx: Chronic anemia/iron deficiency, Asthma/COPD, HTN, HLD, Obesity s/p gastic bypass, Chronic COPD, GERD/Hx PUD, Hx PE, CAD s/p PCI, Diabetes mellitus type II, Schizoaffective disorder/Anxiety and Depression, Tobacco use, Chronic back pain, RACHEL, Tobacco use with recent 07/05/21 cardiac catheterization with patent LAD, LCx, RCA stents, EF 65%, normal LV size, wall motion and systolic Fx with recommended medication therapy with 07/06/21 R hip revision [address] Dr. Yung at [facility] who now re-presents to the [facility] ED on 07/07/21 with history of returning to home and noted she been doing well, walking and ambulating without issue however when attempting to get up to the restroom on day of presentation she felt lightheaded with near syncope causing her to fall to the ground with no specific injury however she was unable to get up on her own prompting her to push her alert system with EMS reported development of chest heaviness and substernal nonpleuritic discomfort that lasted 15 minutes on route with resolution prior to ED presentation. Patient denies any further chest discomfort but reports still feeling mildly lightheaded. Work-up in the ED included T97.8, heart rate 57, BP initially 56/35, respiratory rate 14, 96% on room air, most recent BP 81/57, CBC with WBC 12.7, hemoglobin 7.4, platelet 277 with left shift, unremarkable coags, CMP with chloride 111, BUN/creat 8/1.20, glucose 149, lactic acid 3.3, total bili 0.10 otherwise hepatic profile not remarkable, urinalysis unremarkable, chest x-ray with mild cardiomegaly with no evidence of overload. In the ED patient administered 2L NS, 2 u PRBC T+C ordered following discussions with ED physician. [facility] Medical History Anemia Asthma Atherosclerotic heart disease of [place] coronary artery without angina pectoris Benign essential hypertension BiPAP (biphasic positive airway pressure) dependence Bleeding tendency CAD (coronary artery disease) Chest pain Chest pain at rest Chronic cough Chronic narcotic use Closed fracture of proximal end of fibula COPD (chronic obstructive pulmonary disease) Current use of insulin Delayed surgical wound healing Diabetes Emphysema of lung Gastroesophageal reflux disease High cholesterol Hip osteoarthritis History of left heart catheterization (LHC) (~07/05/21) History of pulmonary embolism History of stress test Hypertension Irregular heart beat Irritable bowel Morbid obesity Morbid obesity with BMI of 45.0-49.9, adult Myocardial infarct On home oxygen therapy RCAHEL (obstructive sleep apnea) Pancreatitis Peptic ulcer Preoperative cardiovascular examination Presence of stent in coronary artery (~02/07/11) Pulmonary hypertension Schizoaffective disorder Schizophrenia Sleep apnea Smoker Spinal stenosis of lumbar region at multiple levels Stage 2 moderate COPD by GOLD classification Suspected COVID-19 virus infection Takotsubo cardiomyopathy Thyroid nodule Tobacco abuse Ulcer Vitamin D deficiency Home Medications atorvastatin 80 mg PO QHS 08/22/15 [History Last Taken 03/15/21] pregabalin 75 mg PO TID 03/08/18 [History Last Taken 03/15/21] risperidone 4 mg PO QHS 03/08/18 [History Last Taken 03/15/21] trazodone 200 mg PO QHS PRN 03/08/18 [History Last Taken 03/15/21] furosemide 20 mg PO DAILY 11/20/18 [History Last Taken 03/15/21] mirabegron 25 mg PO DAILY 11/20/18 [History Last Taken 03/15/21] apixaban 5 mg PO BID 05/02/19 [History Last Taken 07/01/21] buspirone 30 mg tablet 30 mg PO BID tab 06/27/19 [History Last Taken 07/05/21] tiotropium bromide 2.5 mcg/actuation mist for inhalation 2 puff INHALATION DAILY #4 g 09/30/19 [Rx Last Taken 07/05/21] clopidogrel 75 mg PO DAILY 07/31/20 [History Last Taken 07/01/21] Advair HFA 2 puff INHALATION BID 11/14/20 [History Last Taken 03/15/21] albuterol sulfate 2 puff IH Q4H PRN PRN 11/14/20 [History Last Taken Unknown] escitalopram oxalate 20 mg PO DAILY 11/14/20 [History Last Taken 07/05/21] fluticasone propionate 1 spray INTRANASAL BID 11/14/20 [History Last Taken 03/15/21] promethazine 25 mg PO BID PRN PRN 11/14/20 [History Last Taken Unknown] potassium chloride [K-Tab] 40 meq PO DAILY 01/13/21 [History Last Taken 03/15/21] amlodipine 10 mg PO DAILY 05/21/21 [History Last Taken 07/05/21] lamotrigine 150 mg PO DAILY 05/21/21 [History Last Taken 07/05/21] lisinopril 20 mg PO QHS 05/21/21 [History Last Taken Unknown] metoprolol succinate 50 mg PO DAILY 05/21/21 [History Last Taken 07/05/21] omeprazole 20 mg PO DAILY 05/21/21 [History Last Taken Unknown] albuterol sulfate 2.5 mg INHALATION Q4H PRN #180 ml 05/25/21 [Rx Last Taken Unknown] hydrocodone-acetaminophen 1 tab PO Q4H PRN PRN 2 Days #10 tablet 05/26/21 [Rx Last Taken Unknown] montelukast 10 mg tablet 10 mg PO DAILY 06/29/21 [History Last Taken 07/05/21] Allergy/AdvReac Type Severity Reaction Status Date / Time tramadol [From Ultram] Allergy Severe Blisters, Verified 07/07/21 18:14 itching amoxicillin Allergy Itching Verified 07/07/21 18:14 erythromycin base Allergy Unknown Verified 07/07/21 18:14 methadone Allergy Itching Verified 07/07/21 18:14 metolazone Allergy Unknown Verified 07/07/21 18:14 Penicillins Allergy Hives Verified 07/07/21 18:14 Sulfa (Sulfonamide Allergy Hives Verified 07/07/21 18:14 Antibiotics) clarithromycin [From Biaxin] AdvReac Nausea Verified 07/07/21 18:14 ibuprofen AdvReac 3 BLEEDING Verified 07/07/21 18:14 ULCERS morphine AdvReac HEADACHE Verified 07/07/21 18:14 oxycodone [From Percocet] AdvReac Itching Verified 07/07/21 18:14 Family History Mother Heart disease Cancer uterine Father Hypertension Arthritis Hyperlipemia Grandmother Breast cancer Heart disease Grandfather Heart disease Sister Hypertension Surgical History History of appendectomy History of carpal tunnel surgery of left wrist History of cholecystectomy History of gastric bypass History of gastric bypass History of right ankle surgery history of right hip surgery History of tonsillectomy Presence of coronary angioplasty implant and graft (~02/07/11) Social History (Updated 07/07/21 @ 21:[address] Monica Barragan MD) household members: none Smoking Status: Current every day smoker tobacco type: cigarettes Smoking packs per day: 1 Smoking cigarettes per day: 20.0 alcohol intake: never substance use type: does not use caffeine: Yes (occasional) what type of physical activity do you participate in: none ROS ROS Narrative Admission Review of Systems: CONSTITUTIONAL: No weight loss, fever, chills, + weakness or fatigue. HEENT: Eyes: No visual loss, blurred vision, double vision or yellow sclerae. Ears, Nose, Throat: No hearing loss, sneezing, congestion, rhinorrhea, sore throat. SKIN: + R hip recent revision with incision. CARDIOVASCULAR: + Near syncope, chest pain, chest pressure or chest discomfort, edema chronically, No palpitations, orthopnea. RESPIRATORY:+ Chronic shortness of breath, occasional wheezing, chronic cough, No hemoptysis. GASTROINTESTINAL: No anorexia, nausea, vomiting, diarrhea, abdominal pain, melena, BRBPR. GENITOURINARY: No dysuria, urgency or retention. NEUROLOGICAL: Lightheadedness, dizziness, syncope, No paralysis, ataxia, numbness or tingling in the extremities, focal weakness, change in bowel or bladder control, seizure. MUSCULOSKELETAL: + muscle, back pain, joint pain or stiffness. HEMATOLOGIC: + anemia, bleeding or bruising. LYMPHATICS: No enlarged nodes. No history of splenectomy. PSYCHIATRIC: + history of depression or anxiety. ENDOCRINOLOGIC: No reports of sweating, cold or heat intolerance. No polyuria or polydipsia. ALLERGIES: + history of asthma, hives, eczema or rhinitis. Vital Signs Vital Signs Vital Signs: 07/07/21 18:14 07/07/21 18:25 07/07/21 18:30 Temperature 97.8 F Temperature Source Temporal Pulse Rate 57 L 54 L 53 L Respiratory Rate 14 18 11 L Blood Pressure 56/35 L 61/38 L 86/54 L Blood Pressure Mean 42 45 64 Pulse Ox 96 96 94 Oxygen Delivery Method Room Air Room Air Room Air 07/07/21 18:37 07/07/21 19:35 07/07/21 19:48 Temperature 97.5 F L Temperature Source Temporal Pulse Rate 52 L 47 L 49 L Respiratory Rate 16 16 Blood Pressure 90/49 L 79/61 L 94/57 L Blood Pressure Mean 62 67 69 Pulse Ox 98 95 Oxygen Delivery Method Room Air Room Air 07/07/21 20:13 Temperature Temperature Source Pulse Rate 46 L Respiratory Rate Blood Pressure 81/57 L Blood Pressure Mean 65 Pulse Ox Oxygen Delivery Method Weight Weight: 228 lb 6.382 oz Body Mass Index (BMI) 40.4 Physical Exam Narrative Physical Examination: General: Awake, alert, oriented x 3, fatigued, cooperative, fatigued, pale appearing. Skin: Pale color, normal turgor, no icterus, no cyanosis , R hip with post-op dressing with some distal dried blood, no BRB noted, TTP superiorly, no marked induration/firm regions, no marked tracking ecchymotic regions. HEENT: AT/NC, EOMI, PERRLA, dry MM, no carotid bruits or JVD noted. Lungs: Diminished, > bases, moderate effort, occasional end expiratory wheezing, no rales or ronchi. Heart: Currently regular rate and rhythm; no gallop, rub audible. Abdomen: Soft, obesity, NTTP, ND, mildly hyperactive BS, no HSM. Extremities: No cyanosis, no clubbing, mild BL ankle edema. Neurological: Patient awake, alert, oriented as noted, cognitive function baseline intact; pupils equally reactive to light and accommodation, cranial nerves grossly normal, moving all 4 extremities although limited given recent R hip revision, no focal deficits, strength severely globally decreased. Psychiatric: Affect appears fatigued, no acute evidence of depressive or anxiety feelings. Results Lab / Micro Data Result Diagrams: 07/07/21 18:30 07/07/21 18:30 Labs: Laboratory Results - last 24 hr 07/07/21 18:16: POC Glucose 194 H 07/07/21 18:30: WBC 12.7 H, RBC 2.76 L, Hgb 7.4 L, Hct 24.5 L, MCV 88.8, MCH 26.8 L, MCHC 30.2 L, RDW Std Deviation 49.9 H, RDW Coeff of Kaycee 15.6 H, Plt Count 277, MPV 10.7, Immature Gran % (Auto) 0.600, Neut % (Auto) 73.3 H, Lymph % (Auto) 16.5 L, Evangeline % (Auto) 8.9, Eos % (Auto) 0.1, Baso % (Auto) 0.6, Absolute Neuts (auto) 9.3 H, Absolute Lymphs (auto) 2.10, Nucleated RBC % 0 07/07/21 18:30: PT 13.6, INR 1.1, APTT 26.9 07/07/21 18:30: Sodium 140, Potassium 3.9, Chloride 111 H, Carbon Dioxide 24.0, Anion Gap 5, BUN 8, Creatinine 1.20 H, Estim Creat Clear Calc 43.82, Est GFR (MDRD) Af Amer 60, Est GFR (MDRD) Non-Af 49 L, BUN/Creatinine Ratio 6.7 L, Glucose 149 H, Calcium 8.6, Total Bilirubin 0.10 L, AST 15, ALT 14, Alkaline Phosphatase 100, Troponin I High Sens 6, Total Protein 5.3 L, Albumin 2.4 L, Globulin 2.9, Albumin/Globulin Ratio 0.8 L 07/07/21 18:40: Lactic Acid 3.3 H* 07/07/21 18:50: Urine Color Yellow, Urine Clarity Clear, Urine pH 5.0, Ur Specific [place] 1.015, Urine Protein Negative, Urine Glucose (UA) Normal, Urine Ketones Negative, Urine Occult Blood Negative, Urine Nitrite Negative, Urine Bilirubin Negative, Urine Urobilinogen Normal, Ur Leukocyte Esterase Negative, Urine RBC 0 SEEN, Urine WBC 0 SEEN, Ur Squamous Epith Cells 0 SEEN, Urine Bacteria 0 SEEN, Hyaline Casts 5-10 SEEN, Urine Mucus 0 SEEN Radiology Impression Chest X-Ray 07/07/21 19:00 IMPRESSION: 1. Mild cardiomegaly without heart failure. 2. No other evidence of active cardiopulmonary disease. 3. Mild demineralization. Electronically Signed: Aditya Green MD at 19:38 EDT , Assessment & Plan Assessment/Plan (1) Near syncope: (2) Acute hypotension: PLAN: The patient is a 55 y/o F w/ PMHx: Chronic anemia/iron deficiency, Asthma/COPD, HTN, HLD, Obesity s/p gastic bypass, Chronic COPD, GERD/Hx PUD, Hx PE, CAD s/p PCI, Diabetes mellitus type II, Schizoaffective disorder/Anxiety and Depression, Tobacco use, Chronic back pain, RACHEL, Tobacco use with recent 07/05/21 cardiac catheterization with patent stents with follow-up 07/06/21 R hip revision per Dr. Yung at [facility] who now re-presents to the [facility] ED on 07/07/21 with episode lightheaded with near syncope w/ fall w/ no specific injury. #1. Acute Near Syncope with Fall secondary to Acute Suspected Hemorrhagic Shock secondary to Acute on Chronic blood loss anemia/Fe deficiency anemia, suspected secondary to recent operative intervention: Will admit to the ICU, continue to hydrate pending PRBC, plan 2 U PRBC administration, recent admission hemoglobin 7.4, prior to this hemoglobin on 06/15/2019 211.4 with baseline in the 12 range, will cycle HH to be cautious, will obtain guiac to be cautious although denies any BRBPR or black stools, maintain on fall precautions to be cautious given recent history, consulting lead mason tender and orthopedic surgery, monitor right hip although no obvious bleeding or marked induration at site currently, will keep on clears for now until assure guaiac is negative. Hold all antiplatelet and anticoagulant therapies. #2. Chronic Asthma/COPD w/ allergic rhinitis: Will hold home inhalers and in the interim transition to ATC duonebs, PRN albuterol, continue home Singulair as well as fluticasone regimen, HOB, IS parameters. #3. Diabetes mellitus type II with neuropathy: Hold oral home regimen, clears as noted #1, change to ADA once appropriate, accu checks w/ ISS, continue patient home pregabalin regimen. #4. CAD: Status post PCI x 5, holding Plavix, apixaban but will continue statin therapy, hold HTN regimen given #1. 07/05/21 catheterization with patent stents, recommended continued medical therapy of note. #5. Hypertension: Temporarily holding regimen given #1, add back once appropriate. #6. Hyperlipidemia: We will continue patient on statin therapy. #7. History pulmonary embolism: Holding apixaban regimen temporarily as noted above, SCDs. #8. GERD with history of peptic ulcer disease: Maintain on PPI. Evaluation as noted #1. #9. Schizoaffective disorder/Anxiety and Depression: We will continue patient home nightly trazodone, BuSpar, risperidone, lamotrigine, escitalopram regimen however will hold for sedation especially given hypotensive presentation. #10. Tobacco Abuse: Encourage cessation, inpatient consultation per RT, NR if desired. #11. Chronic back pain: Given confusion will be cautious with narcotics and baclofen but will judiciously continue to avoid withdrawal. #12. RACHEL: BiPAP nightly. #13. Morbid Obesity: Weight loss and lifestyle changes encouraged. #14. DVT prophylaxis: SCDs, holding home apixaban regimen. Charges/Coding Visit Charges Inpatient E&M: 31680 Init Hosp L3
--- NOTE | 2021-07-07 20:51 | ED.RN ---
ICU is calling in RN to take pt- will have nurse call ED for report.
[2021-07-07 22:19] LABS: Hematocrit 21.8 % (37-47); Hemoglobin 6.9 g/dL (12.0-15.0)
[2021-07-07 22:20] LABS: Bedside Glucose 149 mg/dL (74-106)
[2021-07-07 22:47] LABS: Reflex Lactate? Y
[2021-07-07] MEDS: Fluticasone 0.05% 1 SPRAY NASAL.SRY NASAL (22:51)
[2021-07-07] MEDS: 0.9% Normal Saline 1,000 ML 125 ML IV (22:52)
[2021-07-07] MEDS: Atorvastatin Calcium 80 MG Tablet PO (22:52)
[2021-07-07 23:53] LABS: Troponin-I HS 7 pg/mL (3.0-54.0)
[2021-07-07 23:56] LABS: Lactic Acid 1.6 mmol/L (0.4-1.9)
[2021-07-08] VITALS (28 sets, daily range): BP systolic 97–166; BP diastolic 52–101; PULSE 44–88; RESP 10–23; TEMP 36.2–36.9; O2SAT 92–98
[2021-07-08] MEDS: HYDROcodone Bitartrate/Apap 5/325 Tablet PO ×5 (03:25→20:58)
[2021-07-08 04:04] LABS: Absolute Lymphocyte Count 3.01 X10^3/uL (0.83-4.51); Absolute Neutrophil Count 7.6 X10^3/uL (2.0-7.7); Basophil% 0.8 % (0-1); Eosinophil# 0.08 X10^3/uL; Eosinophils% 0.7 % (0-5); Hematocrit 27.9 % (37-47); Lymphocyte # 3.01 X10^3/ul (0.83-4.51); Lymphocyte % 24.6 % (19-41); Mean Corp Hgb Conc 32.3 g/dL (32-36); Mean Corpuscular Volume 86.9 fL (81-99); Mean Platelet Vol. 10.1 fl (6.2-12.0); Monocyte# 1.36 X10^3/uL; Monocyte% 11.1 % (0-10); NRBC Flagged by Analyzer 0 % (0-5); Neutrophil # 7.61 X10^3/uL (2.7-7.7); POSITIVE MORPHOLOGY YES; Platelet Count 207 K/mm3 (150-450); RBC Distribution Width CV 14.8 % (11.6-14.6); RBC Distribution Width SD 47.1 fl (35.1-43.9); Red Blood Count 3.21 M/mm3 (4.2-5.4); White Blood Count 12.3 K/mm3 (4.4-11.0)
[2021-07-08 04:21] LABS: Differential Indicated SCAN CRITERIA MET
[2021-07-08 04:30] LABS: Anisocytosis 1+
[2021-07-08 04:38] LABS: Troponin-I HS 7 pg/mL (3.0-54.0)
[2021-07-08 05:10] LABS: ALB/GLOB Ratio 0.9 RATIO (0.9-2.4); AST(SGOT) 15 U/L (15-37); Alanine Aminotransfer ALT/SGPT 15 U/L (13-56); Albumin, Serum 2.5 g/dL (3.2-5.0); Alkaline Phosphatase 98 U/L (45-117); Anion Gap 3 (5-15); BUN 7 mg/dL (7-18); BUN/Creat Ratio 9.8 RATIO (10-20); Calcium,Total 8.1 mg/dL (8.5-10.1); Chloride 112 mmol/L (98-107); Creatinine, Serum 0.72 mg/dL (0.55-1.02); EST Glomerular Filtration Rate 90 mL/min (>60); Est Glom Filt Rate - Afr Amer 108 mL/min (>60); Estimated Creatinine Clearance 73.03 ml/min; Globulin 2.8 g/dL (2.2-4.2); Glucose 86 mg/dL (74-106); Potassium 3.7 mmol/L (3.5-5.1); Protein, Total 5.3 g/dL (6.4-8.2); Sodium Level 139 mmol/L (136-145)
--- NOTE | 2021-07-08 05:46 | CON.PCM.CC_ITS ---
Assessment & Plan Assessment/Plan (1) Blood loss anemia: PLAN: RECOMMENDATIONS: 1. Continue to monitor H&H and transfuse if hemoglobin drops below 7 g/dL. 2. Continue PPI therapy. 3. Continue to hold Plavix and Eliquis for now. 4. Cautious use of sedating pain medications. IMPRESSIONS: 1. Acute blood loss anemia Potentially related to recent orthopedic surgery. The patient is systemically anticoagulated at her baseline and on Plavix due to a history of coronary artery disease and pulmonary embolism. However, at the present time, there is no overt signs of active blood loss. The patient has been transfused 2 units packed red blood cells with appropriate improvement noted in her blood counts. Plan to continue her PPI for now. Recommend rechecking H&H in the morning. Transfuse if hemoglobin drops below 7 g/dL. 2. Hypotension Likely secondary to intravascular volume depletion due to inadequate p.o. intake coupled with the use of diuretics and home antihypertensives. The patient responded avidly to volume resuscitation with stabilization in her hemodynamic status. The patient never required vasopressor support. 3. History of COPD/asthma overlap syndrome/chronic tobacco dependency/pulmonary hypertension Continue scheduled aerosol treatments while admitted to the hospital. Continue nicotine replacement therapy as ordered. I personally spent 3 minutes di scussing the deleterious effects of continued tobacco use with the patient, including modalities which could be utilized to achieve a smoke-free lifestyle. 4. Chronic pain syndrome There has been documentation in the past by providers regarding the patient's use of her narcotics and questionable misuse. This, too, may have contributed to her presenting near syncopal event. 5. History of coronary artery disease status post PCI/history of pulmonary embo lism Continue to hold Plavix and Eliquis for now, pending stability in the patient's blood counts. 6. Morbid obesity/hypertension/hyperlipidemia/depression/anxiety/GERD Complicates care, management, recovery and prognosis. Continue home medications as indicated. This note was generated with LifeBook dictation software. It may contain incorrect words, spelling, and punctuation that were not noted in checking the note before signing. HPI Consult Data Date of Consult: 07/08/21 HPI Narrative Reason for Consultation: Suspected hemorrhagic shock HPI Narrative: The patient is a 55-year-old female, with a history as outlined below, who presented to the emergency department via EMS with a near syncopal event. The patient does have a known history of coronary artery disease status post PCI in 2010. The patient is currently followed by Dr. Willoughby in the pulmonary medicine clinic due to a history of COPD/asthma overlap, pulmonary hypertension and obstructive sleep apnea. In addition to the aforementioned, the patient reported that she was diagnosed with pulmonary emboli 4 years ago and is systemically anticoagulated on Eliquis. The patient does continue to smoke 1 pack of cigarettes per day. On presentation to the emergency department, the patient was noted to be afebrile and hypotensive. Initial laboratory evaluation revealed a white blood cell count of 13,000 with a hemoglobin of 6.9 g/dL. Previously, on June 14, the patient was noted to have a hemoglobin of 11.4 g/dL. Coagulation profile was within normal limits. Chemistry profile was notable for a creatinine of 1.2. Lactate was elevated at 3.3. Urinalysis was unremarkable. Chest x-ray demonstrated no acute cardiopulmonary process. The patient was subsequently transfused 2 units packed red blood cells and received supplemental IV fluid hydration. There was improvement in her hemodynamic status as a consequence of this. The patient was also placed on PPI therapy twice daily. She was subsequently admitted to the medical intensive care unit for further management. [facility] Medical History Anemia Asthma Atherosclerotic heart disease of [place] coronary artery without angina pectoris Benign essential hypertension BiPAP (biphasic positive airway pressure) dependence Bleeding tendency CAD (coronary artery disease) Chest pain Chest pain at rest Chronic cough Chronic narcotic use Closed fracture of proximal end of fibula COPD (chronic obstructive pulmonary disease) Current use of insulin Delayed surgical wound healing Diabetes Emphysema of lung Gastroesophageal reflux disease High cholesterol Hip osteoarthritis History of left heart catheterization (LHC) (~07/05/21) History of pulmonary embolism History of stress test Hypertension Irregular heart beat Irritable bowel Morbid obesity Morbid obesity with BMI of 45.0-49.9, adult Myocardial infarct On home oxygen therapy RACHEL (obstructive sleep apnea) Pancreatitis Peptic ulcer Preoperative cardiovascular examination Presence of stent in coronary artery (~02/07/11) Pulmonary hypertension Schizoaffective disorder Schizophrenia Sleep apnea Smoker Spinal stenosis of lumbar region at multiple levels Stage 2 moderate COPD by GOLD classification Suspected COVID-19 virus infection Takotsubo cardiomyopathy Thyroid nodule Tobacco abuse Ulcer Vitamin D deficiency Home Medications atorvastatin 80 mg PO QHS 08/22/15 [History Last Taken 03/15/21] pregabalin 75 mg PO TID 03/08/18 [History Last Taken 03/15/21] risperidone 4 mg PO QHS 03/08/18 [History Last Taken 03/15/21] trazodone 200 mg PO QHS PRN 03/08/18 [History Last Taken 03/15/21] furosemide 20 mg PO DAILY 11/20/18 [History Last Taken 03/15/21] mirabegron 25 mg PO DAILY 11/20/18 [History Last Taken 03/15/21] apixaban 5 mg PO BID 05/02/19 [History Last Taken 07/01/21] buspirone 30 mg tablet 30 mg PO BID tab 06/27/19 [History Last Taken 07/05/21] tiotropium bromide 2.5 mcg/actuation mist for inhalation 2 puff INHALATION DAILY #4 g 09/30/19 [Rx Last Taken 07/05/21] clopidogrel 75 mg PO DAILY 07/31/20 [History Last Taken 07/01/21] Advair HFA 2 puff INHALATION BID 11/14/20 [History Last Taken 03/15/21] albuterol sulfate 2 puff IH Q4H PRN PRN 11/14/20 [History Last Taken Unknown] escitalopram oxalate 20 mg PO DAILY 11/14/20 [History Last Taken 07/05/21] fluticasone propionate 1 spray INTRANASAL BID 11/14/20 [History Last Taken 03/15/21] promethazine 25 mg PO BID PRN PRN 11/14/20 [History Last Taken Unknown] potassium chloride [K-Tab] 40 meq PO DAILY 01/13/21 [History Last Taken 03/15/21] amlodipine 10 mg PO DAILY 05/21/21 [History Last Taken 07/05/21] lamotrigine 150 mg PO DAILY 05/21/21 [History Last Taken 07/05/21] lisinopril 20 mg PO QHS 05/21/21 [History Last Taken Unknown] metoprolol succinate 50 mg PO DAILY 05/21/21 [History Last Taken 07/05/21] omeprazole 20 mg PO DAILY 05/21/21 [History Last Taken Unknown] albuterol sulfate 2.5 mg INHALATION Q4H PRN #180 ml 05/25/21 [Rx Last Taken Unknown] hydrocodone-acetaminophen 1 tab PO Q4H PRN PRN 2 Days #10 tablet 05/26/21 [Rx Last Taken Unknown] montelukast 10 mg tablet 10 mg PO DAILY 06/29/21 [History Last Taken 07/05/21] Allergy/AdvReac Type Severity Reaction Status Date / Time tramadol [From Ultram] Allergy Severe Blisters, Verified 07/07/21 18:14 itching amoxicillin Allergy Itching Verified 07/07/21 18:14 erythromycin base Allergy Unknown Verified 07/07/21 18:14 methadone Allergy Itching Verified 07/07/21 18:14 metolazone Allergy Unknown Verified 07/07/21 18:14 Penicillins Allergy Hives Verified 07/07/21 18:14 Sulfa (Sulfonamide Allergy Hives Verified 07/07/21 18:14 Antibiotics) clarithromycin [From Biaxin] AdvReac Nausea Verified 07/07/21 18:14 ibuprofen AdvReac 3 BLEEDING Verified 07/07/21 18:14 ULCERS morphine AdvReac HEADACHE Verified 07/07/21 18:14 oxycodone [From Percocet] AdvReac Itching Verified 07/07/21 18:14 Family History Mother Heart disease Cancer uterine Father Hypertension Arthritis Hyperlipemia Grandmother Breast cancer Heart disease Grandfather Heart disease Sister Hypertension Surgical History History of appendectomy History of carpal tunnel surgery of left wrist History of cholecystectomy History of gastric bypass History of gastric bypass History of right ankle surgery history of right hip surgery History of tonsillectomy Presence of coronary angioplasty implant and graft (~02/07/11) Social History (Updated 07/07/21 @ 21:[address] Monica Barragan MD) household members: none Smoking Status: Current every day smoker tobacco type: cigarettes Smoking packs per day: 1 Smoking cigarettes per day: 20.0 alcohol intake: never substance use type: does not use caffeine: Yes (occasional) what type of physical activity do you participate in: none ROS Constitutional Constitutional: Reports weakness; Denies chills, fatigue or fever(s) Eyes Eyes: Denies blurry vision or change in vision ENT HEENT: Reports dizziness Cardiovascular Cardiovascular: Reports chest pain, edema and lightheadedness Respiratory/Chest Respiratory/Chest: Reports dyspnea Gastrointestinal Gastrointestinal: Denies abdominal pain, diarrhea, hematochezia, melena, nausea or vomiting Genitourinary Genitourinary: Denies difficulty urinating Musculoskeletal Musculoskeletal: Reports back pain Integumentary Integumentary: Denies lesions, rash or skin ulcer Neurologic Neurologic: Denies abnormal gait or abnormal speech Psychiatric Psychiatric: Reports anxiety and depression Endocrine Endocrinology: Reports fatigue Hematologic/Lymphatic Hematologic/Lymphatic: Denies easy bleeding or easy bruising Physical Exam Const alert and no apparent distress General Appearance: cooperative Nutritional Appearance: morbidly obese HEENT normocephalic and head/scalp atraumatic Eyes PERRL, EOMs intact bilaterally and conjunctivae normal Neck supple General: trachea midline Chest inspection of chest normal Resp Auscultation: diminished lung sounds; Negative for rales, rhonchi or wheezes Cardio regular rate and regular rhythm GI normal to inspection, nondistended, normoactive bowel sounds Extremity General Extremity: edema bilateral lower extremity; Negative for clubbing Skin no rashes or lesions noted Neuro CN's II-XII intact bilaterally and no focal motor deficits Psych cooperative and affect normal Lab / Micro Data Result Diagrams: 07/08/21 03:55 07/08/21 03:55 Labs: Laboratory Results - last 24 hr 07/07/21 18:16: POC Glucose 194 H 07/07/21 18:30: WBC 12.7 H, RBC 2.76 L, Hgb 7.4 L, Hct 24.5 L, MCV 88.8, MCH 26.8 L, MCHC 30.2 L, RDW Std Deviation 49.9 H, RDW Coeff of Kaycee 15.6 H, Plt Count 277, MPV 10.7, Immature Gran % (Auto) 0.600, Neut % (Auto) 73.3 H, Lymph % (Auto) 16.5 L, [place] % (Auto) 8.9, Eos % (Auto) 0.1, Baso % (Auto) 0.6, Absolute Neuts (auto) 9.3 H, Absolute Lymphs (auto) 2.10, Nucleated RBC % 0 07/07/21 18:30: PT 13.6, INR 1.1, APTT 26.9 07/07/21 18:30: Sodium 140, Potassium 3.9, Chloride 111 H, Carbon Dioxide 24.0, Anion Gap 5, BUN 8, Creatinine 1.20 H, Estim Creat Clear Calc 43.82, Est GFR (MDRD) Af Amer 60, Est GFR (MDRD) Non-Af 49 L, BUN/Creatinine Ratio 6.7 L, Glucose 149 H, Calcium 8.6, Total Bilirubin 0.10 L, AST 15, ALT 14, Alkaline Phosphatase 100, Troponin I High Sens 6, Total Protein 5.3 L, Albumin 2.4 L, Globulin 2.9, Albumin/Globulin Ratio 0.8 L 07/07/21 18:40: Lactic Acid 3.3 H* 07/07/21 18:50: Urine Color Yellow, Urine Clarity Clear, Urine pH 5.0, Ur Specific [place] 1.015, Urine Protein Negative, Urine Glucose (UA) Normal, Urine Ketones Negative, Urine Occult Blood Negative, Urine Nitrite Negative, Urine Bilirubin Negative, Urine Urobilinogen Normal, Ur Leukocyte Esterase Negative, Urine RBC 0 SEEN, Urine WBC 0 SEEN, Ur Squamous Epith Cells 0 SEEN, Urine Bacteria 0 SEEN, Hyaline Casts 5-10 SEEN, Urine Mucus 0 SEEN 07/07/21 20:30: Blood Type O NEGATIVE, Antibody Screen NEGATIVE 07/07/21 20:30: Crossmatch See Detail 07/07/21 22:05: Hgb 6.9 L, Hct 21.8 L 07/07/21 22:15: POC Glucose 149 H 07/07/21 23:25: Lactic Acid 1.6 07/07/21 23:25: Troponin I High Sens 7 07/08/21 03:55: WBC 12.3 H, RBC 3.21 L, Hgb 9.0 L, Hct 27.9 L, MCV 86.9, MCH 28.0, MCHC 32.3 D, RDW Std Deviation 47.1 H, RDW Coeff of Kaycee 14.8 H, Plt Count 207, MPV 10.1, Immature Gran % (Auto) 0.800, Neut % (Auto) 62.0, Lymph % (Auto) 24.6, [place] % (Auto) 11.1 H, Eos % (Auto) 0.7, Baso % (Auto) 0.8, Absolute Neuts (auto) 7.6, Absolute Lymphs (auto) 3.01, Nucleated RBC % 0, Anisocytosis 1+ 07/08/21 03:55: Sodium 139, Potassium 3.7, Chloride 112 H, Carbon Dioxide 24.0, Anion Gap 3 L, BUN 7, Creatinine 0.72, Estim Creat Clear Calc 73.03, Est GFR (MDRD) Af Amer 108, Est GFR (MDRD) Non-Af 90, BUN/Creatinine Ratio 9.8 L, Glucose 86, Calcium 8.1 L, Total Bilirubin 0.50, AST 15, ALT 15, Alkaline Phosphatase 98, Total Protein 5.3 L, Albumin 2.5 L, Globulin 2.8, Albumin/Globulin Ratio 0.9 07/08/21 03:55: Troponin I High Sens 7 Radiology Impression Chest X-Ray 07/07/21 19:00 IMPRESSION: 1. Mild cardiomegaly without heart failure. 2. No other evidence of active cardiopulmonary disease. 3. Mild demineralization. Electronically Signed: Aditya Green MD at 19:38 EDT , Charges/Coding Visit Charges Inpatient E&M: 13241 Init Hosp L3 Behavior Interventions Behavior Intervention: 10222 Smoking Cessation 3-10 min
[2021-07-08] MEDS: Budesonide Respules 0.5 MG/2 ML AMPUL.NEB. INHALATION ×2 (07:21→18:49)
[2021-07-08 07:45] LABS: Bedside Glucose 86 mg/dL (74-106)
[2021-07-08] MEDS: Pregabalin 75 MG Capsule PO ×3 (08:45→20:54)
[2021-07-08] MEDS: Acetaminophen 325 MG Tablet 650 MG PO ×3 (08:45→16:52)
[2021-07-08] MEDS: busPIRone 15 MG TABLET 30 MG PO ×2 (08:47→20:55)
[2021-07-08] MEDS: Mirabegron 25 MG TAB.ER.24H PO (08:47)
[2021-07-08] MEDS: Fluticasone 0.05% 1 SPRAY NASAL.SRY NASAL ×2 (08:47→20:53)
[2021-07-08] MEDS: Montelukast 10 MG Tablet PO (08:48)
[2021-07-08] MEDS: Escitalopram Oxalate 20 MG Tablet PO (08:48)
[2021-07-08] MEDS: lamoTRIgine 150 MG Tablet PO (08:49)
[2021-07-08] MEDS: Potassium Chloride Oral Tablet 20 MEQ 40 MEQ PO (08:49)
[2021-07-08] MEDS: guaiFENesin 600 MG Tablet PO ×2 (09:55→20:58)
--- NOTE | 2021-07-08 10:39 | PN.ORTHO_ITS ---
Subjective Subjective The patient was sitting in bed upon examination in the ICU. Patient denies any chest pain, shortness of breath, dizziness, lightheadedness, nausea or vomiting, or calf pain. Patient underwent a revision right total hip arthroplasty posterior approach by Dr. Pop Yung on Jul 06 2021. This was done at [facility]. She was discharged postoperative day #1. Patient went at home she was attempting to get up to the restroom in which she felt dizzy causing her to fall to the ground. She was unable to get up and pushed her alert system for EMS. Postoperative day #1 hemoglobin was 8.7. She currently feels much better today. She did have a transfusion with 2 units packed red blood cells. Her hemoglobin in chart did drop down to 6.9. Today currently 9.0. She denies dizziness or lightheadedness at this time. No chest pain or shortness of breath. She does complain of some right hip pain. Denies any abdominal pain. Denies any numbness and tingling. She is comfortable in bed. Patient does take Eliquis due to previous history of pulmonary embolism. She is followed by Dr. Willoughby in pulmonary medicine. She does have history of COPD/asthma overlap, pulmonary hypertension and obstructive sleep apnea. Objective Data Objective Data Vital Signs: Vital Signs Temp Pulse Resp BP Pulse Ox 98.1 F 76 20 H 111/59 L 95 07/08/21 10:00 07/08/21 10:00 07/08/21 10:00 07/08/21 10:00 07/08/21 10:00 Oxygen Delivery Method Room Air Weight: 102.5 kg Body Mass Index (BMI) 38.1 Intake & Output: Intake and Output for Last 24 Hours 07/06/21 07/07/21 07/08/21 23:59 23:59 23:59 Intake Total 1999 1720 / 1720 Balance 1999 1720 / 1720 Lab / Micro Data Result Diagrams: 07/08/21 03:55 07/08/21 03:55 Labs: Laboratory Results - last 24 hr 07/07/21 18:16: POC Glucose 194 H 07/07/21 18:30: WBC 12.7 H, RBC 2.76 L, Hgb 7.4 L, Hct 24.5 L, MCV 88.8, MCH 26.8 L, MCHC 30.2 L, RDW Std Deviation 49.9 H, RDW Coeff of Kaycee 15.6 H, Plt Count 277, MPV 10.7, Immature Gran % (Auto) 0.600, Neut % (Auto) 73.3 H, Lymph % (Auto) 16.5 L, [place] % (Auto) 8.9, Eos % (Auto) 0.1, Baso % (Auto) 0.6, Absolute Neuts (auto) 9.3 H, Absolute Lymphs (auto) 2.10, Nucleated RBC % 0 07/07/21 18:30: PT 13.6, INR 1.1, APTT 26.9 07/07/21 18:30: Sodium 140, Potassium 3.9, Chloride 111 H, Carbon Dioxide 24.0, Anion Gap 5, BUN 8, Creatinine 1.20 H, Estim Creat Clear Calc 43.82, Est GFR (MDRD) Af Amer 60, Est GFR (MDRD) Non-Af 49 L, BUN/Creatinine Ratio 6.7 L, Glucose 149 H, Calcium 8.6, Total Bilirubin 0.10 L, AST 15, ALT 14, Alkaline Ph osphatase 100, Troponin I High Sens 6, Total Protein 5.3 L, Albumin 2.4 L, Globulin 2.9, Albumin/Globulin Ratio 0.8 L 07/07/21 18:40: Lactic Acid 3.3 H* 07/07/21 18:50: Urine Color Yellow, Urine Clarity Clear, Urine pH 5.0, Ur Specific [place] 1.015, Urine Protein Negative, Urine Glucose (UA) Normal, Urine Ketones Negative, Urine Occult Blood Negative, Urine Nitrite Negative, Urine Bilirubin Negative, Urine Urobilinogen Normal, Ur Leukocyte Esterase Negative, Urine RBC 0 SEEN, Urine WBC 0 SEEN, Ur Squamous Epith Cells 0 SEEN, Urine Bacteria 0 SEEN, Hyaline Casts 5-10 SEEN, Urine Mucus 0 SEEN 07/07/21 20:30: Blood Type O NEGATIVE, Antibody Screen NEGATIVE 07/07/21 20:30: Crossmatch See Detail 07/07/21 22:05: Hgb 6.9 L, Hct 21.8 L 07/07/21 22:15: POC Glucose 149 H 07/07/21 23:25: Lactic Acid 1.6 07/07/21 23:25: Troponin I High Sens 7 07/08/21 03:55: WBC 12.3 H, RBC 3.21 L, Hgb 9.0 L, Hct 27.9 L, MCV 86.9, MCH 28.0, MCHC 32.3 D, RDW Std Deviation 47.1 H, RDW Coeff of Kaycee 14.8 H, Plt Count 207, MPV 10.1, Immature Gran % (Auto) 0.800, Neut % (Auto) 62.0, Lymph % (Auto) 24.6, [place] % (Auto) 11.1 H, Eos % (Auto) 0.7, Baso % (Auto) 0.8, Absolute Neuts (auto) 7.6, Absolute Lymphs (auto) 3.01, Nucleated RBC % 0, Anisocytosis 1+ 07/08/21 03:55: Sodium 139, Potassium 3.7, Chloride 112 H, Carbon Dioxide 24.0, Anion Gap 3 L, BUN 7, Creatinine 0.72, Estim Creat Clear Calc 73.03, Est GFR (MDRD) Af Amer 108, Est GFR (MDRD) Non-Af 90, BUN/Creatinine Ratio 9.8 L, Glucose 86, Calcium 8.1 L, Total Bilirubin 0.50, AST 15, ALT 15, Alkaline Phosphatase 98, Total Protein 5.3 L, Albumin 2.5 L, Globulin 2.8, Albumin/Globulin Ratio 0.9 07/08/21 03:55: Troponin I High Sens 7 07/08/21 07:43: POC Glucose 86 Radiography Diagnostic Testing: Radiology Impression Chest X-Ray 07/07/21 19:00 IMPRESSION: 1. Mild cardiomegaly without heart failure. 2. No other evidence of active cardiopulmonary disease. 3. Mild demineralization. Electronically Signed: Aditya Green MD at 19:38 EDT , Physical Exam Narrative Vital signs stable and afebrile. Room air with 95% pulse ox. Most recent blood pressure currently 111/59 with heart rate 76 and respiration 20 Right hip has trace ecchymosis. There is some swelling but the thigh is soft and supple consistent with postoperative total hip arthroplasty. She is currently tender to palpation around the surgical area. Nontender to palpation abdomen Patient is able to plantarflex and dorsiflex actively. Sensation is intact to light touch to saphenous, sural, superficial and deep peroneal, and tibial distribution. Mepilex dressing overall is clean dry and intact with mild drainage quarter size amount over the distal one third Overall leg lengths appear equal with no shortening appreciated in bed. Negative Homans bilaterally, negative signs and symptoms of DVT. Const alert, oriented x3 and no apparent distress Assessment & Plan Assessment/Plan (1) History of revision of total replacement of right hip joint: PLAN: 1. S/P revision right total hip arthroplasty POD #2: Procedure was performed at [facility] on July 06, 2021 2. Continue Pain Medications: Currently utilizing [place]. She does report pain in the right hip. 3. DVT Prophylaxis: Patient normally is on Eliquis and Plavix. Eliquis has been stopped due to bleeding risk. Case was discussed with Pop Yung. Agree with stopping due to increased risk of bleeding. However okay to resume anticoagulant when medically appropriate. Recommend ankle pumps and range of motion and ambulation for DVT prophylaxis. Also continue with SCDs and SANJANA mcallister . 4. PT/OT: When medically appropriate okay to resume physical therapy. Follow posterior hip dislocation precautions for 3 months postoperatively. Weightbearing as tolerated with walker. 5. H & H: Currently 9.0/27.9, asymptomatic. Postoperative anemia secondary to acute blood loss from surgery without any intra operative complications. On postoperative day 1 at [facility] patient's hemoglobin was 8.7. While at [facility] hemoglobin did drop to 6.9. She did receive 2 units packed red blood cells. Hemoglobin is currently 9.0. Vitals appear stable. She is currently without dizziness or lightheadedness. 6. Continue postoperative medical management per medicine 7. Encouraged Incentive Spirometry 8. Disposition: We will continue to monitor patient for her right postoperative hip revision. At this time right hip is soft and supple. She has no tenderness in the abdomen. She does have some swelling to the right hip but appears normal for her above surgery. I do not feel bleeding would be coming from her right hip at this time. Overall leg lengths appear equal in bed. I am ordering an x- ray of the right hip as she did have a fall at home on postoperative day #1. We will continue to monitor her right hip while in the hospital tomorrow. When medicine feels patient is appropriate to resume her anticoagulation we are okay with this resumption when medically appropriate. Also recommend her to begin physical therapy when medically appropriate. She is weightbearing as tolerated with walker but needs to continue with posterior hip dislocation precautions for 3 months postoperatively. Continue above pain medications. Case management is also involved with appropriate placement once medically stable. Patient has 2- week postoperative follow-up visit with [facility] [place]. 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 Case was discussed in detail with Dr. Pop Yung. I have reviewed the [place] Automated Rx Reporting System (OARRS) report for this p atient for refill pattern and other prescriber involvement as part of the appropriate surveillance for the provision of acute and chronic controlled medications. The report was requested and reviewed on the date of this entry and was considered in the prescribing process.
--- NOTE | 2021-07-08 11:11 | CASEMGMT ---
Social Work SW met with pt and introduced self and role of SW. Pt A&O x3 and agreeable to complete assessment with social contact worker. Care providers, pharmacy, and demographics verified at this time. PCP: Dr. Taylor Specialists: Dr. Yung - ortho, Dr. Reyes - Hematology, Dr. Willoughby - Pulmonary, Dr. Puckett - Psychiatrist Preferred Pharmacy: [facility]. If off hours of [facility] then [facility] Insurance: [employer]. Pt does have Medicaid, however this is QMB only (only benefit is coverage of Medicare Premiums) Prescription Benefit: Yes Living Will/HPOA: Pt has living will and Health Care POA naming her sister Jessica Payan. Both documents are on file LNOK: Jessica Payan and Balbina Tejada - sisters. yamile Elliott Living Arrangements: Pt lives alone in a 5th floor apartment with an elevator. Pt states she is independent with dressing and sponge bathing (she is unable to get into the shower). Pt states her sister Jessica comes once a week to clean. Her neighbor Earl buys her groceries. Pt is able to make sandwiches, heat up microwave meals ect. Pt states she ambulates independently within her home, but if her ankles are hurting she will use her electric wheelchair. Transportation: Pt does not drive. Pt's neighbor Earl provides needed transportation to all appointments and errands. DME: Electric wheelchair, walker, rollator, cane, high rise toilet grab bars HHC/SNF: Previously at [facility]. Pt states she was set up with [facility] for home health PT when leaving [facility] after hip surgery on Monday. Services have not began yet. Mental Health: Pt states she has a diagnosis of depression, anxiety and schizophrenia. She does not see a counselor nor have a case aide but follows with Dr. Puckett at the counseling center. Pt states mental health is controlled and manageable with respirdal, lexapro and buspar. Pt denies any concerns. Substance Use: Pt denies alcohol or drug use. Community Resources: JFS - pt does receive food stamps and states this is sufficient for needs. No concern with food insecurity. Pt does have a medical alert Pt states her [employer] has approved [facility] to come to her home and assist with home needs. Pt has been in touch with [facility] but they do not currently have staffing. SW spoke to pt about MOW. Pt accepting written information on program. Plan: Pt states she feels safe at home and with her current living situation. Pt plans to return home with continuation of home health services that have been ordered through [facility]. ROGER Caputo
--- NOTE | 2021-07-08 11:15 | PN.HOSP_ITS ---
Subjective Subjective Patient seen and examined. She had no active complaints today and had an uneventful night. She was transfused with 2 units of PRBCs due to concerns about hemorrhagic shock. Her Hb did fall to 6.9; was 7.4 on admission. Review of systems is otherwise negative. She denies any overt bleeding or any swelling at the surgical site. Hemoglobin today is 9. Objective Data Objective Data Vital Signs: Vital Signs Temp Pulse Resp BP Pulse Ox 98.1 F 76 20 H 111/59 L 95 07/08/21 10:00 07/08/21 10:00 07/08/21 10:00 07/08/21 10:00 07/08/21 10:00 Oxygen Delivery Method Room Air Weight: 225 lb 15.581 oz Body Mass Index (BMI) 38.1 Intake & Output: Intake and Output for Last 24 Hours 07/06/21 07/07/21 07/08/21 23:59 23:59 23:59 Intake Total 1999 1720 / 1720 Balance 1999 1720 / 1720 Lab / Micro Data Result Diagrams: 07/08/21 03:55 07/08/21 03:55 Labs: Laboratory Results - last 24 hr 07/07/21 18:16: POC Glucose 194 H 07/07/21 18:30: WBC 12.7 H, RBC 2.76 L, Hgb 7.4 L, Hct 24.5 L, MCV 88.8, MCH 26.8 L, MCHC 30.2 L, RDW Std Deviation 49.9 H, RDW Coeff of Kaycee 15.6 H, Plt Count 277, MPV 10.7, Immature Gran % (Auto) 0.600, Neut % (Auto) 73.3 H, Lymph % (Auto) 16.5 L, Schuyler % (Auto) 8.9, Eos % (Auto) 0.1, Baso % (Auto) 0.6, Absolute Neuts (auto) 9.3 H, Absolute Lymphs (auto) 2.10, Nucleated RBC % 0 07/07/21 18:30: PT 13.6, INR 1.1, APTT 26.9 07/07/21 18:30: Sodium 140, Potassium 3.9, Chloride 111 H, Carbon Dioxide 24.0, Anion Gap 5, BUN 8, Creatinine 1.20 H, Estim Creat Clear Calc 43.82, Est GFR (MDRD) Af Amer 60, Est GFR (MDRD) Non-Af 49 L, BUN/Creatinine Ratio 6.7 L, Glucose 149 H, Calcium 8.6, Total Bilirubin 0.10 L, AST 15, ALT 14, Alkaline Phosphatase 100, Troponin I High Sens 6, Total Protein 5.3 L, Albumin 2.4 L, Globulin 2.9, Albumin/Globulin Ratio 0.8 L 07/07/21 18:40: Lactic Acid 3.3 H* 07/07/21 18:50: Urine Color Yellow, Urine Clarity Clear, Urine pH 5.0, Ur Specific Becket 1.015, Urine Protein Negative, Urine Glucose (UA) Normal, Urine Ketones Negative, Urine Occult Blood Negative, Urine Nitrite Negative, Urine Bilirubin Negative, Urine Urobilinogen Normal, Ur Leukocyte Esterase Negative, Urine RBC 0 SEEN, Urine WBC 0 SEEN, Ur Squamous Epith Cells 0 SEEN, Urine Bacteria 0 SEEN, Hyaline Casts 5-10 SEEN, Urine Mucus 0 SEEN 07/07/21 20:30: Blood Type O NEGATIVE, Antibody Screen NEGATIVE 07/07/21 20:30: Crossmatch See Detail 07/07/21 22:05: Hgb 6.9 L, Hct 21.8 L 07/07/21 22:15: POC Glucose 149 H 07/07/21 23:25: Lactic Acid 1.6 07/07/21 23:25: Troponin I High Sens 7 07/08/21 03:55: WBC 12.3 H, RBC 3.21 L, Hgb 9.0 L, Hct 27.9 L, MCV 86.9, MCH 28.0, MCHC 32.3 D, RDW Std Deviation 47.1 H, RDW Coeff of Kaycee 14.8 H, Plt Count 207, MPV 10.1, Immature Gran % (Auto) 0.800, Neut % (Auto) 62.0, Lymph % (Auto) 24.6, Schuyler % (Auto) 11.1 H, Eos % (Auto) 0.7, Baso % (Auto) 0.8, Absolute Neuts (auto) 7.6, Absolute Lymphs (auto) 3.01, Nucleated RBC % 0, Anisocytosis 1+ 07/08/21 03:55: Sodium 139, Potassium 3.7, Chloride 112 H, Carbon Dioxide 24.0, Anion Gap 3 L, BUN 7, Creatinine 0.72, Estim Creat Clear Calc 73.03, Est GFR (MDRD) Af Amer 108, Est GFR (MDRD) Non-Af 90, BUN/Creatinine Ratio 9.8 L, Glucose 86, Calcium 8.1 L, Total Bilirubin 0.50, AST 15, ALT 15, Alkaline Phosphatase 98, Total Protein 5.3 L, Albumin 2.5 L, Globulin 2.8, Albumin/Globulin Ratio 0.9 07/08/21 03:55: Troponin I High Sens 7 07/08/21 07:43: POC Glucose 86 Radiography Diagnostic Testing: Radiology Impression Chest X-Ray 07/07/21 19:00 IMPRESSION: 1. Mild cardiomegaly without heart failure. 2. No other evidence of active cardiopulmonary disease. 3. Mild demineralization. Electronically Signed: Aditya Green MD at 19:38 EDT Reading Location ID and State: [address] [place] [address] Tel , Service support , Physical Exam Const alert, oriented x3 and no apparent distress Constitutional Narrative: morbidly obese Exam Limitations: no limitations HEENT head/scalp atraumatic and moist oral mucous membranes Head and Scalp: normocephalic Eyes PERRL, EOMs intact bilaterally and conjunctivae normal Neck no lymphadenopathy, supple and no JVD Resp normal respiratory effort, no retractions, no use of accessory muscles and clear to auscultation bilaterally Cardio regular rate, regular rhythm, S1 normal heart sound, S2 normal heart sound and no murmurs GI normal to inspection, nondistended, normoactive bowel sounds, soft to palpation, non-tender and non-distended Extremity Extremity Narrative: intact dressing over right hip; miminal tenderness swelling, no extensive bruising Skin Skin Narrative: as under extremities Neuro oriented x3, CN's II-XII intact bilaterally and moves all extremities Sensorium / Orientation: awake and alert Psych affect normal Assessment & Plan Assessment/Plan (1) Acute hypotension: (2) Near syncope: (3) Acute blood loss anemia: (4) History of revision of total replacement of right hip joint: PLAN: #Near syncope due to shock, likely hypovolemic * I dont think patient had hemorrhagic shock, as there was no clear evidence of bleeding at the time patient came in. her post op Hb was 8.7, and her Hb was 7.4 on admission, and subsequently dropped to 6.9 * Patient tells me that she had been home alone after surgery and had not been eating or drinking well after surgery. She subsequently got up to get something to eat and then fell down after feeling dizzy and lightheaded. * I do think patient likely had hypovolemic shock from decreased intake and this was complicated by acute on chronic anemia due to acute blood loss from surg galina. * She likely also had a component of orthostatic hypotension contributing to this. * She is s/p 2 units of packed red blood cells. Hemoglobin today is 9. * Was being hydrated with IV fluids. Will DC IV fluids. * Encourage liberal oral hydration. * PT OT on board. Fall precautions. * Orthopedic surgery consulted and they reviewed patient everything was reviewed for any acute intervention as there is no evidence of bleeding. * Check orthostatics. * #Acute on chronic anemia due to acute blood loss from surgery * Patient's postop hemoglobin was 8.7 and on admission her hemoglobin was 7.4. * Her hemoglobin level a month ago was around 11. Patient however tells me that before surgery hemoglobin level was low when she was put on iron supplements by her orthopedic surgeon. * S/p transfusion of 2 units of packed red blood cells her hemoglobin is now 9. * Will monitor. * On oral iron supplements. * #Type 2 diabetes mellitus with neuropathy: * Oral meds on hold. On insulin sliding scale. * Accu-Cheks ACH S. Will resume diabetes meds as patient has been placed on a diet. * #CAD s/p PCI: Plavix on hold. On high intensity statin. #Hypertension: Blood pressure medications on hold due to patient's hypotension on admission. #Hyperlipidemia: on statin #GERD: On PPI #Schizoaffective disorder with anxiety and depression * On trazodone, BuSpar, Risperdal, lamotrigine, and escitalopram. * #RACHEL: On BiPAP nightly #History of PE: Eliquis on hold on account of acute on chronic anemia. SCDs. #History of asthma: * Not in exacerbation. Breathing treatments with bronchodilators. On Singulair and fluticasone. #Morbid obesity: * Complicates acute care, expected recovery and prognosis. * Counseled about weight loss and lifestyle changes. * DVT prophylaxis: SCDs. Charges/Coding Visit Charges Inpatient E&M: 34228 Subs Hosp L3
[2021-07-08 11:41] LABS: Bedside Glucose 116 mg/dL (74-106)
--- NOTE | 2021-07-08 12:18 | CASEMGMT ---
PAMELA ALVAREZ NOTE: Call placed to Darlin @ [facility]. SOC was slated for today. She is aware pt has been admitted to [facility]. She states they are still able to accept pt @ discharge, but will need new order for HHC. [facility] order placed for SN, PT, and OT. Nyasia BERKOWITZ RN, CM
--- NOTE | 2021-07-08 13:25 | RAD_ITS ---
STUDY: X-RAY - PELVIS AND RIGHT HIP REASON FOR EXAM: Female, 55 years old. post-op revision hip and recent fall TECHNIQUE: 4 views of the pelvis and hip. COMPARISON: Right hip x-ray dated JUNE 28, 2021 FINDINGS: Interval appearance of projection of the acetabular cup liner over the femoral prosthetic neck region which was not seen on the prior study indicating some new hardware versus possible displacement. Good bony contact and alignment of the femoral prosthetic component and acetabular cup. No hardware loosening or abnormal lucency between the bone hardware interface noted. Interval appearance of a cerclage wire in the subtrochanteric region of the femoral prosthesis which was not seen on the prior study. 2 additional cerclage wires in the proximal one third aspect of the femoral shaft are stable. No acute fractures seen. There is a non-specific bowel gas pattern. Normal visualized soft tissue structures. RAD/Hip Min 2 Views (Portable) IMPRESSION: 1. Interval appearance of projection of the acetabular cup liner over the femoral prosthetic neck region which was not seen on the prior study indicating some new hardware versus possible displacement Electronically Signed: Saúl Valdez MD at 14:19 EDT ,
[2021-07-08] MEDS: Albuterol 2.5 MG/3 ML VIAL.NEB. INHALATION (15:35)
[2021-07-08 16:41] LABS: Bedside Glucose 109 mg/dL (74-106)
--- NOTE | 2021-07-08 18:38 | NURSING ---
Reviewed charting with pasha Rader RN
[2021-07-08] MEDS: RisperiDONE 2 MG Tablet 4 MG PO (20:56)
[2021-07-08] MEDS: Atorvastatin Calcium 80 MG Tablet PO (20:59)
[2021-07-08] MEDS: 0.9% Saline Lock 10 ML Syringe IV (21:12)
[2021-07-09] VITALS (13 sets, daily range): BP systolic 126–154; BP diastolic 73–97; PULSE 86–115; RESP 18–22; TEMP 36.1–37.1; O2SAT 93–98
[2021-07-09 00:45] LABS: Bedside Glucose 121 mg/dL (74-106)
[2021-07-09] MEDS: HYDROcodone Bitartrate/Apap 5/325 Tablet PO ×5 (01:13→18:18)
[2021-07-09 05:20] LABS: Absolute Lymphocyte Count 2.05 X10^3/uL (0.83-4.51); Absolute Neutrophil Count 9.7 X10^3/uL (2.0-7.7); Basophil# 0.09 X10^3/uL; Basophil% 0.7 % (0-1); Eosinophil# 0.25 X10^3/uL; Eosinophils% 1.9 % (0-5); Hematocrit 29.5 % (37-47); Hemoglobin 9.7 g/dL (12.0-15.0); Lymphocyte # 2.05 X10^3/ul (0.83-4.51); Lymphocyte % 15.4 % (19-41); Mean Corp Hgb Conc 32.9 g/dL (32-36); Mean Corpuscular Hgb 28.1 pg (27.0-32.0); Mean Corpuscular Volume 85.5 fL (81-99); Mean Platelet Vol. 10.2 fl (6.2-12.0); NRBC Flagged by Analyzer 0 % (0-5); Neutrophil # 9.65 X10^3/uL (2.7-7.7); Neutrophil % 72.5 % (47-70); Platelet Count 229 K/mm3 (150-450); Red Blood Count 3.45 M/mm3 (4.2-5.4); White Blood Count 13.3 K/mm3 (4.4-11.0)
[2021-07-09 05:43] LABS: Anion Gap 6 (5-15); BUN 6 mg/dL (7-18); BUN/Creat Ratio 9.4 RATIO (10-20); Calcium,Total 8.4 mg/dL (8.5-10.1); Chloride 110 mmol/L (98-107); Creatinine, Serum 0.64 mg/dL (0.55-1.02); EST Glomerular Filtration Rate 103 mL/min (>60); Est Glom Filt Rate - Afr Amer 124 mL/min (>60); Estimated Creatinine Clearance 82.16 ml/min; Glucose 98 mg/dL (74-106); Potassium 3.6 mmol/L (3.5-5.1); Sodium Level 140 mmol/L (136-145)
--- NOTE | 2021-07-09 06:32 | PCM.PN.INT ---
Assessment & Plan Assessment/Plan (1) Blood loss anemia: PLAN: RECOMMENDATIONS: 1. Continue to monitor H&H and transfuse if hemoglobin drops below 7 g/dL. 2. Continue PPI therapy. 3. Continue to hold Plavix and Eliquis for now. 4. Cautious use of sedating pain medications. 5. As the patient is without further ICU or pulmonary needs, will sign off. Please call with any additional questions. IMPRESSIONS: 1. Acute blood loss anemia Resolved. Potentially related to recent orthopedic surgery. The patient is systemically anticoagulated at her baseline and on Plavix due to a history of coronary artery disease and pulmonary embolism. However, at the present time, there is no overt signs of active blood loss. The patient has been transfused 2 units packed red blood cells with appropriate improvement noted in her blood counts. Plan to continue her PPI for now. Transfuse if hemoglobin drops below 7 g/dL. 2. Hypotension Resolved. Likely secondary to intravascular volume depletion due to inadequate p.o. intake coupled with the use of diuretics and home antihypertensives. The patient responded avidly to volume resuscitation with stabilization in her hemodynamic status. The patient never required vasopressor support. 3. History of COPD/asthma overlap syndrome/chronic tobacco dependency/pulmonary hypertension Continue scheduled aerosol treatments while admitted to the hospital. Continue nicotine replacement therapy as ordered. 4. Chronic pain syndrome There has been documentation in the past by providers regarding the patient's use of her narcotics and questionable misuse. This, too, may have contributed to her presenting near syncopal event. 5. History of coronary artery disease status post PCI/history of pulmonary embolism Continue to hold Plavix and Eliquis for now, pending stability in the patient's blood counts. 6. Morbid obesity/hypertension/hyperlipidemia/depression/anxiety/GERD Complicates care, management, recovery and prognosis. Continue home medications as indicated. This note was generated with [employer] dictation software. It may contain incorrect words, spelling, and punctuation that were not noted in checking the note before signing. Subjective Subjective The patient was seen and examined at the bedside this morning. Events from the last 24 hours have been reviewed. The patient is currently afebrile, hemodynamically stable and maintaining appropriate oxygen saturations on room air. The patient is documented to be overall net +3 L for the hospitalization. Her hemoglobin remains stable this morning. Objective Data Objective Data The patient's most recent lab work, culture data and imaging studies have all been personally reviewed. Neither blood or urine cultures have demonstrated any growth to date. Vital Signs: Vital Signs Temp Pulse Resp BP Pulse Ox 97.7 F L 88 18 129/85 H 94 07/09/21 02:16 07/09/21 02:59 07/09/21 02:16 07/09/21 02:16 07/09/21 02:16 Oxygen Delivery Method Room Air Weight: 101.9 kg Body Mass Index (BMI) 38.1 Intake & Output: Intake and Output for Last 24 Hours 07/07/21 07/08/21 07/09/21 23:59 23:59 23:59 Intake Total 1999 2753.5 / 2753.5 Output Total 1730 / 1730 Balance 1999 1023.5 / 1023.5 Lab / Micro Data Attestation: I reviewed the patient's lab results. Result Diagrams: 07/09/21 04:50 07/09/21 04:50 Labs: Laboratory Results - last 24 hr 07/08/21 07:43: POC Glucose 86 07/08/21 11:33: POC Glucose 116 H 07/08/21 16:35: POC Glucose 109 H 07/08/21 20:49: POC Glucose 121 H 07/09/21 04:50: WBC 13.3 H, RBC 3.45 L, Hgb 9.7 L, Hct 29.5 L, MCV 85.5, MCH 28.1, MCHC 32.9, RDW Std Deviation 47.0 H, RDW Coeff of Kaycee 15.0 H, Plt Count 229, MPV 10.2, Immature Gran % (Auto) 0.500, Neut % (Auto) 72.5 H, Lymph % (Auto) 15.4 L, Henderson % (Auto) 9.0, Eos % (Auto) 1.9, Baso % (Auto) 0.7, Absolute Neuts (auto) 9.7 H, Absolute Lymphs (auto) 2.05, Nucleated RBC % 0 07/09/21 04:50: Sodium 140, Potassium 3.6, Chloride 110 H, Carbon Dioxide 24.0, Anion Gap 6, BUN 6 L, Creatinine 0.64, Estim Creat Clear Calc 82.16, Est GFR (MDRD) Af Amer 124, Est GFR (MDRD) Non-Af 103, BUN/Creatinine Ratio 9.4 L, Glucose 98, Calcium 8.4 L Micro: Microbiology 07/09/21 01:45 Stool Stool Occult Blood (KATHY) - Final Occult Blood Positive 07/07/21 18:50 Urine, Catheterized Urine Culture - Preliminary Culture exhibits no growth. Radiography Diagnostic Testing: Radiology Impression Hip X-Ray 07/08/21 13:25 IMPRESSION: 1. Interval appearance of projection of the acetabular cup liner over the femoral prosthetic neck region which was not seen on the prior study indicating some new hardware versus possible displacement Electronically Signed: Saúl Valdez MD at 14:19 EDT Reading Location ID and State: [facility] / [place] , Service support , Physical Exam Const alert and no apparent distress General Appearance: cooperative Nutritional Appearance: morbidly obese HEENT normocephalic and head/scalp atraumatic Eyes PERRL, EOMs intact bilaterally and conjunctivae normal Neck supple General: trachea midline Chest inspection of chest normal Resp Auscultation: diminished lung sounds; Negative for rales, rhonchi or wheezes Cardio regular rate and regular rhythm GI normal to inspection, nondistended, normoactive bowel sounds Extremity General Extremity: edema bilateral lower extremity; Negative for clubbing Skin no rashes or lesions noted Neuro CN's II-XII intact bilaterally and no focal motor deficits Psych cooperative and affect normal Charges/Coding Visit Charges Inpatient E&M: 40897 Subs Hosp L2
[2021-07-09 07:16] LABS: Bedside Glucose 110 mg/dL (74-106)
[2021-07-09] MEDS: Budesonide Respules 0.5 MG/2 ML AMPUL.NEB. INHALATION ×2 (07:28→20:12)
[2021-07-09] MEDS: Fluticasone 0.05% 1 SPRAY NASAL.SRY NASAL ×2 (08:36→20:56)
[2021-07-09] MEDS: lamoTRIgine 150 MG Tablet PO (08:37)
[2021-07-09] MEDS: guaiFENesin 600 MG Tablet PO ×2 (08:37→20:55)
[2021-07-09] MEDS: Potassium Chloride Oral Tablet 20 MEQ 40 MEQ PO (08:37)
[2021-07-09] MEDS: busPIRone 15 MG TABLET 30 MG PO ×2 (08:37→20:56)
[2021-07-09] MEDS: Escitalopram Oxalate 20 MG Tablet PO (08:37)
[2021-07-09] MEDS: Pregabalin 75 MG Capsule PO ×3 (08:38→21:06)
[2021-07-09] MEDS: Mirabegron 25 MG TAB.ER.24H PO (08:39)
[2021-07-09 08:50] LABS: Magnesium 1.7 mg/dL (1.6-2.6)
[2021-07-09] MEDS: Montelukast 10 MG Tablet PO (08:58)
--- NOTE | 2021-07-09 09:09 | CON.PCM.CA_ITS ---
Assessment & Plan Assessment/Plan (1) Cardiac dysrhythmia: PLAN: Rhythm strips were evaluated and noted to be artifactual. There was no evidence of ventricular tachyarrhythmia present. I would therefore continue current medical therapy. I will however optimize her magnesium as well as potassium replacement therapy. (2) Presence of stent in coronary artery: PLAN: Patient underwent cardiac catheterization which demonstrated patent stents. At this time I would not recommend any change in therapy. (3) Takotsubo cardiomyopathy: PLAN: Patient had a previous history of Takotsubo. However her left ventricular ejection fraction has normalized. I would not repeat the above. Thank you for allowing me to participate in the care of your patient. Please don't hesitate to call if any issues arise. HPI Consult Data Date of Consult: 07/09/21 HPI Narrative HPI Narrative: TALAT HAN, is a 55 F who presented for hip surgery and while recuperating was noted to have a cardiac dysrhythmia and cardiology was consulted for evaluation of the rhythm. The patient was noted to be as ymptomatic and just moving around in bed. She does have a history of Takotsubo cardiomyopathy and coronary artery disease requiring multiple PCI procedures, hypertension, hyperlipidemia, diabetes chema itus and obstructive sleep apnea. She was recently seen and evaluated in preoperative evaluation with an echocardiogram performed demonstrating preserved ejection fraction of 75% and decreased diastolic compliance. She went on to have a pharmacologic myocardial perfusion stress test which was apparently inconclusive. She subsequently underwent on 07/05/2021 left heart catheterization which demonstrated patency of all her previously placed stents to the left anterior descending artery, circumflex artery, and at the right coronary artery. L of ventriculogram had demonstrated fairly preserved left ventricular systolic function. The patient was deemed to be optimized for her hip surgery which she underwent. She had apparently developed significant anemia postoperatively and required readmission. FOR[facility]LY [facility] Medical History Anemia Asthma Atherosclerotic heart disease of [place] coronary artery without angina pectoris Benign essential hypertension BiPAP (biphasic positive airway pressure) dependence Bleeding tendency CAD (coronary artery disease) Chest pain Chest pain at rest Chronic cough Chronic narcotic use Closed fracture of proximal end of fibula COPD (chronic obstructive pulmonary disease) Current use of insulin Delayed surgical wound healing Diabetes Emphysema of lung Gastroesophageal reflux disease High cholesterol Hip osteoarthritis History of left heart catheterization (LHC) (~07/05/21) History of pulmonary embolism History of stress test Hypertension Irregular heart beat Irritable bowel Morbid obesity Morbid obesity with BMI of 45.0-49.9, adult Myocardial infarct On home oxygen therapy RACHEL (obstructive sleep apnea) Pancreatitis Peptic ulcer Preoperative cardiovascular examination Presence of stent in coronary artery (~02/07/11) Pulmonary hypertension Schizoaffective disorder Schizophrenia Sleep apnea Smoker Spinal stenosis of lumbar region at multiple levels Stage 2 moderate COPD by GOLD classification Suspected COVID-19 virus infection Takotsubo cardiomyopathy Thyroid nodule Tobacco abuse Ulcer Vitamin D deficiency Home Medications atorvastatin 80 mg PO QHS 08/22/15 [History Last Taken 03/15/21] pregabalin 75 mg PO TID 03/08/18 [History Last Taken 03/15/21] risperidone 4 mg PO QHS 03/08/18 [History Last Taken 03/15/21] trazodone 200 mg PO QHS PRN 03/08/18 [History Last Taken 03/15/21] furosemide 20 mg PO DAILY 11/20/18 [History Last Taken 03/15/21] mirabegron 25 mg PO DAILY 11/20/18 [History Last Taken 03/15/21] apixaban 5 mg PO BID 05/02/19 [History Last Taken 07/01/21] buspirone 30 mg tablet 30 mg PO BID tab 06/27/19 [History Last Taken 07/05/21] tiotropium bromide 2.5 mcg/actuation mist for inhalation 2 puff INHALATION DAILY #4 g 09/30/19 [Rx Last Taken 07/05/21] clopidogrel 75 mg PO DAILY 07/31/20 [History Last Taken 07/01/21] Advair HFA 2 puff INHALATION BID 11/14/20 [History Last Taken 03/15/21] albuterol sulfate 2 puff IH Q4H PRN PRN 11/14/20 [History Last Taken Unknown] escitalopram oxalate 20 mg PO DAILY 11/14/20 [History Last Taken 07/05/21] fluticasone propionate 1 spray INTRANASAL BID 11/14/20 [History Last Taken 03/15/21] promethazine 25 mg PO BID PRN PRN 11/14/20 [History Last Taken Unknown] potassium chloride [K-Tab] 40 meq PO DAILY 01/13/21 [History Last Taken 03/06 ] amlodipine 10 mg PO DAILY 05/21/21 [History Last Taken 07/05/21] lamotrigine 150 mg PO DAILY 05/21/21 [History Last Taken 07/05/21] lisinopril 20 mg PO QHS 05/21/21 [History Last Taken Unknown] metoprolol succinate 50 mg PO DAILY 05/21/21 [History Last Taken 07/05/21] omeprazole 20 mg PO DAILY 05/21/21 [History Last Taken Unknown] albuterol sulfate 2.5 mg INHALATION Q4H PRN #180 ml 05/25/21 [Rx Last Taken Unknown] hydrocodone-acetaminophen 1 tab PO Q4H PRN PRN 2 Days #10 tablet 05/26/21 [Rx Last Taken Unknown] montelukast 10 mg tablet 10 mg PO DAILY 06/29/21 [History Last Taken 07/05/21] Allergy/AdvReac Type Severity Reaction Status Date / Time tramadol [From Ultram] Allergy Severe Blisters, Verified 07/07/21 18:14 itching amoxicillin Allergy Itching Verified 07/07/21 18:14 erythromycin base Allergy Unknown Verified 07/07/21 18:14 methadone Allergy Itching Verified 07/07/21 18:14 metolazone Allergy Unknown Verified 07/07/21 18:14 Penicillins Allergy Hives Verified 07/07/21 18:14 Sulfa (Sulfonamide Allergy Hives Verified 07/07/21 18:14 Antibiotics) clarithromycin [From Biaxin] AdvReac Nausea Verified 07/07/21 18:14 ibuprofen AdvReac 3 BLEEDING Verified 07/07/21 18:14 ULCERS morphine AdvReac HEADACHE Verified 07/07/21 18:14 oxycodone [From Percocet] AdvReac Itching Verified 07/07/21 18:14 Family History Mother Heart disease Cancer uterine Father Hypertension Arthritis Hyperlipemia Grandmother Breast cancer Heart disease Grandfather Heart disease Sister Hypertension Surgical History History of appendectomy History of carpal tunnel surgery of left wrist History of cholecystectomy History of gastric bypass History of gastric bypass History of right ankle surgery history of right hip surgery History of tonsillectomy Presence of coronary angioplasty implant and graft (~02/07/11) Social History household members: none Smoking Status: Current every day smoker tobacco type: cigarettes Smoking packs per day: 1 Smoking cigarettes per day: 20.0 alcohol intake: never substance use type: does not use caffeine: Yes (occasional) what type of physical activity do you participate in: none ROS Constitutional Constitutional: Denies fever(s) or weight loss Eyes Eyes: Reports systems reviewed and no addt'l complaints, except as documented ENT HEENT: Reports systems reviewed and no addt'l complaints, except as documented Cardiovascular Cardiovascular: Denies chest pain at rest, chest pain with activity, dyspnea at rest, dyspnea on exertion, edema, palpitations or paroxysmal nocturnal dyspnea Respiratory/Chest Respiratory/Chest: Denies dyspnea on exertion, productive cough, shortness of breath at rest or shortness of breath with exertion Gastrointestinal Gastrointestinal: Denies change in bowel habits, nausea, vomiting or weight changes Genitourinary Genitourinary: Denies difficulty urinating Musculoskeletal Musculoskeletal: Denies joint stiffness or muscle weakness Integumentary Integumentary: Denies lesions Neurologic Neurologic: Denies dizziness or syncope Psychiatric Psychiatric: Denies anxiety Endocrine Endocrinology: Denies excessive sweating or fatigue Hematologic/Lymphatic Hematologic/Lymphatic: Denies anemia Allergic/Immunologic Allergic/Immunologic: Denies seasonal rhinorrhea Physical Exam Const alert, oriented x3 and no apparent distress General Appearance: cooperative HEENT hearing grossly normal bilaterally Head and Scalp: atraumatic Eyes EOMs intact bilaterally Neck General: normal visual inspection Chest inspection of chest normal and palpation of chest normal Resp normal respiratory effort Auscultation: clear to auscultation bilaterally Cardio regular rate, regular rhythm, S1 normal heart sound and S2 normal heart sound Jugular Venous Distention: JVD GI normal to inspection, nondistended, normoactive bowel sounds Extremity normal capillary refill and no pedal edema Peripheral Pulses: Yes pulses 2+ throughout and femoral pulses present Skin no rashes or lesions noted Neuro oriented x3 and CN's II-XII intact bilaterally Psych Appearance: grossly normal and appropriate Risk Stratification Risk Stratification Applicable: No Objective Data Vital Signs: Vital Signs Temp Pulse Resp BP Pulse Ox 98.3 F 102 H 22 H 154/97 H 94 07/09/21 07:02 07/09/21 07:30 07/09/21 07:30 07/09/21 07:02 07/09/21 07:32 Oxygen Delivery Method Room Air Weight: 224 lb 10.417 oz Body Mass Index (BMI) 38.1 Intake & Output: Intake and Output for Last 24 Hours 07/07/21 07/08/21 07/09/21 23:59 23:59 23:59 Intake Total 1999 2753.5 / 2753.5 Output Total 1730 / 1730 Balance 1999 1023.5 / 1023.5 Lab / Micro Data Result Diagrams: 07/09/21 04:50 07/09/21 04:50 Labs: Laboratory Results - last 24 hr 07/08/21 11:33: POC Glucose 116 H 07/08/21 16:35: POC Glucose 109 H 07/08/21 20:49: POC Glucose 121 H 07/09/21 04:50: WBC 13.3 H, RBC 3.45 L, Hgb 9.7 L, Hct 29.5 L, MCV 85.5, MCH 28.1, MCHC 32.9, RDW Std Deviation 47.0 H, RDW Coeff of Kaycee 15.0 H, Plt Count 229, MPV 10.2, Immature Gran % (Auto) 0.500, Neut % (Auto) 72.5 H, Lymph % (Auto) 15.4 L, [place] % (Auto) 9.0, Eos % (Auto) 1.9, Baso % (Auto) 0.7, Absolute Neuts (auto) 9.7 H, Absolute Lymphs (auto) 2.05, Nucleated RBC % 0 07/09/21 04:50: Sodium 140, Potassium 3.6, Chloride 110 H, Carbon Dioxide 24.0, Anion Gap 6, BUN 6 L, Creatinine 0.64, Estim Creat Clear Calc 82.16, Est GFR (MDRD) Af Amer 124, Est GFR (MDRD) Non-Af 103, BUN/Creatinine Ratio 9.4 L, Glucose 98, Calcium 8.4 L 07/09/21 04:50: Magnesium 1.7 07/09/21 07:03: POC Glucose 110 H Micro: Microbiology 07/09/21 01:45 Stool Stool Occult Blood (KATHY) - Final Occult Blood Positive 07/07/21 18:50 Urine, Catheterized Urine Culture - Preliminary Culture exhibits no growth. Cardiology Labs/Tests 07/09/21 04:50: WBC 13.3 H, RBC 3.45 L, Hgb 9.7 L, Hct 29.5 L, MCV 85.5, MCH 28.1, MCHC 32.9, Plt Count 229, MPV 10.2, Immature Gran % (Auto) 0.500, Neut % (Auto) 72.5 H, Lymph % (Auto) 15.4 L, [place] % (Auto) 9.0, Eos % (Auto) 1.9, Baso % (Auto) 0.7, Absolute Neuts (auto) 9.7 H, Nucleated RBC % 0 07/09/21 04:50: Sodium 140, Potassium 3.6, Chloride 110 H, Carbon Dioxide 24.0, Anion Gap 6, BUN 6 L, Creatinine 0.64, Est GFR (MDRD) Af Amer 124, Est GFR (MDRD) Non-Af 103, BUN/Creatinine Ratio 9.4 L, Glucose 98, Calcium 8.4 L 07/09/21 04:50: Magnesium 1.7 Rhythm: EKG: ECHO: Stress Test: Cardiac Cath: PCI: CT Surgery: Holter monitor: EPS: PPM: CXR: Chest CT Scan: Radiography Diagnostic Testing: Radiology Impression Hip X-Ray 07/08/21 13:25 IMPRESSION: 1. Interval appearance of projection of the acetabular cup liner over the femoral prosthetic neck region which was not seen on the prior study indicating some new hardware versus possible displacement Electronically Signed: Saúl Valdez MD at 14:19 EDT Reading Location ID and State: [facility] / [place] , Service support ,
[2021-07-09 11:46] LABS: Bedside Glucose 173 mg/dL (74-106)
--- NOTE | 2021-07-09 12:04 | PN.HOSP_ITS ---
Subjective Subjective Patient seen and examined. She had no active complaints and had an uneventful night. Review of systems is otherwise negative. Her stool for occult blood came back positive. Hemoglobin is 9.7 today. Objective Data Objective Data Vital Signs: Vital Signs Temp Pulse Resp BP Pulse Ox 97 F L 102 H 18 126/78 H 93 07/09/21 10:12 07/09/21 10:12 07/09/21 10:12 07/09/21 10:12 07/09/21 10:12 Oxygen Delivery Method Room Air Weight: 224 lb 10.417 oz Body Mass Index (BMI) 38.1 Intake & Output: Intake and Output for Last 24 Hours 07/07/21 07/08/21 07/09/21 23:59 23:59 23:59 Intake Total 1999 2753.5 / 2753.5 110 / 110 Output Total 1730 / 1730 Balance 1999 1023.5 / 1023.5 110 / 110 Lab / Micro Data Result Diagrams: 07/09/21 04:50 07/09/21 04:50 Labs: Laboratory Results - last 24 hr 07/08/21 16:35: POC Glucose 109 H 07/08/21 20:49: POC Glucose 121 H 07/09/21 04:50: WBC 13.3 H, RBC 3.45 L, Hgb 9.7 L, Hct 29.5 L, MCV 85.5, MCH 28.1, MCHC 32.9, RDW Std Deviation 47.0 H, RDW Coeff of Kaycee 15.0 H, Plt Count 229, MPV 10.2, Immature Gran % (Auto) 0.500, Neut % (Auto) 72.5 H, Lymph % (Auto) 15.4 L, [place] % (Auto) 9.0, Eos % (Auto) 1.9, Baso % (Auto) 0.7, Absolute Neuts (auto) 9.7 H, Absolute Lymphs (auto) 2.05, Nucleated RBC % 0 07/09/21 04:50: Sodium 140, Potassium 3.6, Chloride 110 H, Carbon Dioxide 24.0, Anion Gap 6, BUN 6 L, Creatinine 0.64, Estim Creat Clear Calc 82.16, Est GFR (MDRD) Af Amer 124, Est GFR (MDRD) Non-Af 103, BUN/Creatinine Ratio 9.4 L, Glucose 98, Calcium 8.4 L 07/09/21 04:50: Magnesium 1.7 07/09/21 07:03: POC Glucose 110 H 07/09/21 11:25: POC Glucose 173 H Micro: Microbiology 07/09/21 01:45 Stool Stool Occult Blood (KATHY) - Final Occult Blood Positive 07/07/21 18:50 Urine, Catheterized Urine Culture - Preliminary Culture exhibits no growth. Radiography Diagnostic Testing: Radiology Impression Hip X-Ray 07/08/21 13:25 IMPRESSION: 1. Interval appearance of projection of the acetabular cup liner over the femoral prosthetic neck region which was not seen on the prior study indicating some new hardware versus possible displacement Electronically Signed: Saúl Valdez MD at 14:19 EDT , Physical Exam Const alert, oriented x3 and no apparent distress Constitutional Narrative: morbidly obese Exam Limitations: no limitations HEENT head/scalp atraumatic and moist oral mucous membranes Head and Scalp: normocephalic Eyes PERRL, EOMs intact bilaterally and conjunctivae normal Neck no lymphadenopathy, supple and no JVD Resp normal respiratory effort, no retractions, no use of accessory muscles and clear to auscultation bilaterally Cardio regular rate, regular rhythm, S1 normal heart sound, S2 normal heart sound and no murmurs GI normal to inspection, nondistended, normoactive bowel sounds, soft to palpation, non-tender and non-distended Extremity Extremity Narrative: intact dressing over right hip; miminal tenderness swelling, no extensive bruising Peripheral Pulses: Yes pulses 2+ throughout Skin Skin Narrative: as under extremities Neuro oriented x3, CN's II-XII intact bilaterally and moves all extremities Sensorium / Orientation: awake and alert Psych affect normal Assessment & Plan Assessment/Plan (1) Acute hypotension: (2) Near syncope: (3) Acute blood loss anemia: (4) History of revision of total replacement of right hip joint: PLAN: #Near syncope due to shock, likely hypovolemic * She is s/p 2 units of packed red blood cells. Hemoglobin today is 9. 7 * Encourage liberal oral hydration. * PT OT on board. Fall precautions. * Orthopedic surgery consulted and they reviewed patient everything was reviewed for any acute intervention as there is no evidence of bleeding. * Check orthostatics. * #Acute on chronic anemia due to acute blood loss from surgery * Patient's postop hemoglobin was 8.7 and on admission her hemoglobin was 7.4. * Her hemoglobin level a month ago was around 11. Patient however tells me that before surgery hemoglobin level was low when she was put on iron supplements by her orthopedic surgeon. * S/p transfusion of 2 units of packed red blood cells her hemoglobin is now 9.7 * stool for occult blood is positive * gastroenterology consulted * Will monitor. * On oral iron supplements. * #Type 2 diabetes mellitus with neuropathy: * Oral meds on hold. On insulin sliding scale. * Accu-Cheks ACH S. * #CAD s/p PCI: Plavix on hold. On high intensity statin. #Hypertension: Blood pressure medications on hold due to patient's hypotension on admission. #Hyperlipidemia: on statin #GERD: On PPI #Schizoaffective disorder with anxiety and depression * On trazodone, BuSpar, Risperdal, lamotrigine, and escitalopram. * #RACHEL: On BiPAP nightly #History of PE: Eliquis on hold on account of acute on chronic anemia. SCDs. #History of asthma: * Not in exacerbation. Breathing treatments with bronchodilators. On Singulair and fluticasone. #Morbid obesity: * Complicates acute care, expected recovery and prognosis. * Counseled about weight loss and lifestyle changes. * DVT prophylaxis: SCDs. Charges/Coding Visit Charges Inpatient E&M: 18164 Subs Hosp L2
[2021-07-09] MEDS: Acetaminophen 325 MG Tablet 650 MG PO (12:09)
--- NOTE | 2021-07-09 12:13 | PN.ORTHO_ITS ---
Subjective Subjective Patient underwent a revision right total hip arthroplasty posterior approach by Dr. Pop Yung on Jul 06 2021. This was done at [facility]. She was discharged postoperative day #1. Patient went at home she was attempting to get up to the restroom in which she felt dizzy causing her to fall to the ground. She was readmitted to [facility]. She has been under the care of hospitalist guide cruise and rn office. She has a history of bleeding stomach ulcers. She did receive 2 units packed red blood cells. She is feeling much better. She still persists with pain in the right hip. She does not feel the pain medicine is controlling her pain currently. The pain is the same as yesterday. She states she was taking the Bronwood at home 1 or 2 tablets every 4 hours as needed and she is only receiving 1 tablet here every 4 hours as needed. She currently denies chest pain shortness of breath dizziness or calf pain. Objective Data Objective Data Vital Signs: Vital Signs Temp Pulse Resp BP Pulse Ox 97 F L 102 H 18 126/78 H 93 07/09/21 10:12 07/09/21 10:12 07/09/21 10:12 07/09/21 10:12 07/09/21 10:12 Oxygen Delivery Method Room Air Weight: 101.9 kg Body Mass Index (BMI) 38.1 Intake & Output: Intake and Output for Last 24 Hours 07/07/21 07/08/21 07/09/21 23:59 23:59 23:59 Intake Total 1999 2753.5 / 2753.5 110 / 110 Output Total 1730 / 1730 Balance 1999 1023.5 / 1023.5 110 / 110 Lab / Micro Data Result Diagrams: 07/09/21 04:50 07/09/21 04:50 Labs: Laboratory Results - last 24 hr 07/08/21 16:35: POC Glucose 109 H 07/08/21 20:49: POC Glucose 121 H 07/09/21 04:50: WBC 13.3 H, RBC 3.45 L, Hgb 9.7 L, Hct 29.5 L, MCV 85.5, MCH 28.1, MCHC 32.9, RDW Std Deviation 47.0 H, RDW Coeff of Kaycee 15.0 H, Plt Count 229, MPV 10.2, Immature Gran % (Auto) 0.500, Neut % (Auto) 72.5 H, Lymph % (Auto) 15.4 L, [place] % (Auto) 9.0, Eos % (Auto) 1.9, Baso % (Auto) 0.7, Absolute Neuts (auto) 9.7 H, Absolute Lymphs (auto) 2.05, Nucleated RBC % 0 07/09/21 04:50: Sodium 140, Potassium 3.6, Chloride 110 H, Carbon Dioxide 24.0, Anion Gap 6, BUN 6 L, Creatinine 0.64, Estim Creat Clear Calc 82.16, Est GFR (MDRD) Af Amer 124, Est GFR (MDRD) Non-Af 103, BUN/Creatinine Ratio 9.4 L, Glucose 98, Calcium 8.4 L 07/09/21 04:50: Magnesium 1.7 07/09/21 07:03: POC Glucose 110 H 07/09/21 11:25: POC Glucose 173 H Micro: Microbiology 07/09/21 01:45 Stool Stool Occult Blood (KATHY) - Final Occult Blood Positive 07/07/21 18:50 Urine, Catheterized Urine Culture - Preliminary Culture exhibits no growth. Radiography Diagnostic Testing: Radiology Impression Hip X-Ray 07/08/21 13:25 IMPRESSION: 1. Interval appearance of projection of the acetabular cup liner over the femoral prosthetic neck region which was not seen on the prior study indicating some new hardware versus possible displacement Electronically Signed: Saúl Valdez MD at 14:19 EDT Reading Location ID and State: [address] [place] [address] , Service support , Physical Exam Narrative Right hip has trace ecchymosis. There is some swelling but the thigh is soft and supple consistent with postoperative total hip arthroplasty. She is currently tender to palpation around the surgical area. The surrounding skin is soft and supple without evidence of hematoma formation. Silver Mepilex dressings in place 1 small area of dried bloody drainage touching one border at the most distal aspect of the dressing. Nontender to palpation abdomen Patient is able to plantarflex and dorsiflex actively. Sensation is intact to light touch to saphenous, sural, superficial and deep peroneal, and tibial distribution. Overall leg lengths appear equal with no shortening appreciated in bed. Negative Homans bilaterally, negative signs and symptoms of DVT. Assessment & Plan Assessment/Plan (1) Dislocation of hip, right, closed: PLAN: (1) History of revision of total replacement of right hip joint: PLAN: 1. S/P revision right total hip arthroplasty POD #3: Procedure was performed at [facility] on July 06, 2021 2. Continue Pain Medications: Currently utilizing Bronwood. She does report pain in the right hip. We will adjust the dosing to 1 or 2 tablets every 4 hours as needed pain. 3. DVT Prophylaxis: Patient normally is on Eliquis and Plavix. Eliquis has been stopped due to bleeding risk. Case was discussed with Pop Yung. Agree with stopping due to increased risk of bleeding. However okay to resume anticoagulant when medically appropriate. Recommend ankle pumps and range of motion and ambulation for DVT prophylaxis. Also continue with SCDs and SANJANA prernae. 4. PT/OT: When medically appropriate okay to resume physical therapy. Follow posterior hip dislocation precautions for 3 months postoperatively. Weightbearing as tolerated with walker. 5. H & H: Currently 9.7/29.5, asymptomatic. Postoperative anemia secondary to acute blood loss from surgery without any intra operative complications. On p ostoperative day 1 at [facility] patient's hemoglobin was 8.7. While at [facility] hemoglobin did drop to 6.9. She did receive 2 units packed red blood cells. Vitals appear stable. She is currently without dizziness or lightheadedness. 6. Continue postoperative medical management per medicine 7. Encouraged Incentive Spirometry 8. Disposition: We will continue to monitor patient for her right postoperative hip revision. At this time right hip is soft and supple. She has no tenderness in the abdomen. She does have some swelling to the right hip but appears normal for her above surgery. Source of bleeding does not seem to be stemming from the surgical site at this time. Overall leg lengths appear equal in bed. Hip x- rays reviewed consistent with prosthetic devices from revision hip surgery in good position without evidence of hardware failure loosening without evidence of dislocation. orthopedically the patient is stable and we we will sign off. Please do not hesitate to contact us with any further orthopedic concerns. When medicine feels patient is appropriate to resume her anticoagulation we are okay with this resumption when medically appropriate. Also recommend her to begin physical therapy when medically appropriate. She is weightbearing as tolerated with walker but needs to continue with posterior hip dislocation precautions for 3 months postoperatively. Continue above pain medications. Case management is also involved with appropriate placement once medically stable. Patient has 2- week postoperative follow-up visit with [facility]. Would recommend continued follow with her creative services manager on an outpatient basis once discharged. Case was discussed in detail with Dr. Pop Yung.
[2021-07-09] MEDS: Albuterol 2.5 MG/3 ML VIAL.NEB. INHALATION ×2 (14:35→20:12)
[2021-07-09 16:45] LABS: Bedside Glucose 167 mg/dL (74-106)
[2021-07-09] MEDS: cycloBENZAPRine HCl 10 MG Tablet PO (18:18)
--- NOTE | 2021-07-09 18:30 | PCM.CONS.GEN ---
Assessment & Plan Assessment/Plan (1) Blood loss anemia: PLAN: History of iron deficiency anemia from unknown cause in the setting of acute blood loss anemia while taking antiplatelet and anticoagulant therapy. She has a history of peptic ulcer disease. Recommendations are evaluation of her upper GI tract and possible evaluation of her lower GI tract. At this time I do not think she can tolerate a colonoscopy due to recent hip surgery. We will recommend upper endoscopy evaluate upper GI tract and if that is normal then she will need to have a colonoscopy and possible capsule endoscopy. Recommend to hold Plavix and Eliquis therapy tonight. N.p.o. past midnight. She was explained alternatives, risk, benefits including outstanding bleeding, infection, sepsis, perforation, need for emergent . She will have an ASA 3. HPI Consult Data Date of Consult: 07/09/21 HPI Narrative HPI Narrative: TALAT HAN, is a 55 F who presented for a revision of her a previous hip replacement. She did develop cardiac arrhythmia while she was here in the hospital. She was evaluated by cardiology and she underwent echocardiogram which showed an ejection fraction of 75% with diastolic compliance mildly decreased. She also underwent cardiac catheterization that showed previous patent stents in the left anterior descending, circumflex and right coronary artery. She had history of Takotsubo cardiomyopathy which I require revascularization. She also has a history of obesity hypertension hyperlipidemia, diabetes and obstructive sleep apnea. While in the hospital she dropped her hemoglobin. She is on Eliquis and Plavix therapy due to her recent stents placed in history of CAD. I was called to see her because of decreasing hemoglobin and Hemoccult positive stools. [facility] Medical History Anemia Asthma Atherosclerotic heart disease of [place] coronary artery without angina pectoris Benign essential hypertension BiPAP (biphasic positive airway pressure) dependence Bleeding tendency CAD (coronary artery disease) Chest pain Chest pain at rest Chronic cough Chronic narcotic use Closed fracture of proximal end of fibula COPD (chronic obstructive pulmonary disease) Current use of insulin Delayed surgical wound healing Diabetes Emphysema of lung Gastroesophageal reflux disease High cholesterol Hip osteoarthritis History of left heart catheterization (LHC) (~07/05/21) History of pulmonary embolism History of stress test Hypertension Irregular heart beat Irritable bowel Morbid obesity Morbid obesity with BMI of 45.0-49.9, adult Myocardial infarct On home oxygen therapy RACHEL (obstructive sleep apnea) Pancreatitis Peptic ulcer Preoperative cardiovascular examination Presence of stent in coronary artery (~02/07/11) Pulmonary hypertension Schizoaffective disorder Schizophrenia Sleep apnea Smoker Spinal stenosis of lumbar region at multiple levels Stage 2 moderate COPD by GOLD classification Suspected COVID-19 virus infection Takotsubo cardiomyopathy Thyroid nodule Tobacco abuse Ulcer Vitamin D deficiency Home Medications atorvastatin 80 mg PO QHS 08/22/15 [History Last Taken 03/15/21] pregabalin 75 mg PO TID 03/08/18 [History Last Taken 03/15/21] risperidone 4 mg PO QHS 03/08/18 [History Last Taken 03/15/21] trazodone 200 mg PO QHS PRN 03/08/18 [History Last Taken 03/15/21] furosemide 20 mg PO DAILY 11/20/18 [History Last Taken 03/15/21] mirabegron 25 mg PO DAILY 11/20/18 [History Last Taken 03/15/21] apixaban 5 mg PO BID 05/02/19 [History Last Taken 07/01/21] buspirone 30 mg tablet 30 mg PO BID tab 06/27/19 [History Last Taken 07/05/21] tiotropium bromide 2.5 mcg/actuation mist for inhalation 2 puff INHALATION DAILY #4 g 09/30/19 [Rx Last Taken 07/05/21] clopidogrel 75 mg PO DAILY 07/31/20 [History Last Taken 07/01/21] Advair HFA 2 puff INHALATION BID 11/14/20 [History Last Taken 03/15/21] albuterol sulfate 2 puff IH Q4H PRN PRN 11/14/20 [History Last Taken Unknown] escitalopram oxalate 20 mg PO DAILY 11/14/20 [History Last Taken 07/05/21] fluticasone propionate 1 spray INTRANASAL BID 11/14/20 [History Last Taken 03/15/21] promethazine 25 mg PO BID PRN PRN 11/14/20 [History Last Taken Unknown] potassium chloride [K-Tab] 40 meq PO DAILY 01/13/21 [History Last Taken 03/15/21] amlodipine 10 mg PO DAILY 05/21/21 [History Last Taken 07/05/21] lamotrigine 150 mg PO DAILY 05/21/21 [History Last Taken 07/05/21] lisinopril 20 mg PO QHS 05/21/21 [History Last Taken Unknown] metoprolol succinate 50 mg PO DAILY 05/21/21 [History Last Taken 07/05/21] omeprazole 20 mg PO DAILY 05/21/21 [History Last Taken Unknown] albuterol sulfate 2.5 mg INHALATION Q4H PRN #180 ml 05/25/21 [Rx Last Taken Unknown] hydrocodone-acetaminophen 1 tab PO Q4H PRN PRN 2 Days #10 tablet 05/26/21 [Rx Last Taken Unknown] montelukast 10 mg tablet 10 mg PO DAILY 06/29/21 [History Last Taken 07/05/21] Allergy/AdvReac Type Severity Reaction Status Date / Time tramadol [From Ultram] Allergy Severe Blisters, Verified 07/07/21 18:14 itching amoxicillin Allergy Itching Verified 07/07/21 18:14 erythromycin base Allergy Unknown Verified 07/07/21 18:14 methadone Allergy Itching Verified 07/07/21 18:14 metolazone Allergy Unknown Verified 07/07/21 18:14 Penicillins Allergy Hives Verified 07/07/21 18:14 Sulfa (Sulfonamide Allergy Hives Verified 07/07/21 18:14 Antibiotics) clarithromycin [From Biaxin] AdvReac Nausea Verified 07/07/21 18:14 ibuprofen AdvReac 3 BLEEDING Verified 07/07/21 18:14 ULCERS morphine AdvReac HEADACHE Verified 07/07/21 18:14 oxycodone [From Percocet] AdvReac Itching Verified 07/07/21 18:14 Family History Mother Heart disease Cancer uterine Father Hypertension Arthritis Hyperlipemia Grandmother Breast cancer Heart disease Grandfather Heart disease Sister Hypertension Surgical History History of appendectomy History of carpal tunnel surgery of left wrist History of cholecystectomy History of gastric bypass History of gastric bypass History of right ankle surgery history of right hip surgery History of tonsillectomy Presence of coronary angioplasty implant and graft (~02/07/11) Social History household members: none Smoking Status: Current every day smoker tobacco type: cigarettes alcohol intake: never substance use type: does not use caffeine: Yes (occasional) what type of physical activity do you participate in: none ROS Review of Systems ROS Unobtainable: other Constitutional Constitutional: Denies fatigue, fever(s), poor appetite, weight gain or weight loss ENT HEENT: Denies mouth lesions Cardiovascular Cardiovascular: Denies abdominal bloating, abdominal edema or abdominal pain Respiratory/Chest Respiratory/Chest: Denies change in mental status, change in phlegm color, chest congestion or chest tightness Gastrointestinal Gastrointestinal: Denies belching, bloating, change in bowel habits, change in stool character, chewing difficulty, coffee ground emesis, constipation, cramping, diarrhea, dyspepsia, dysphagia, early satiety, excessive flatus, fecal incontinence, heartburn, hematemesis, hematochezia, hemorrhoids, loose stools, melena, nausea, odynophagia, rectal bleeding, tenesmus, vomiting or weight changes Genitourinary Genitourinary: Denies abdominal discomfort, burning urination or itching Musculoskeletal Musculoskeletal: Reports as per HPI; Denies muscle weakness or myalgias Integumentary Integumentary: Denies jaundice Neurologic Neurologic: Denies lack of coordination or weakness Psychiatric Psychiatric: Denies confusion, depression, memory loss, mood swings, paranoia or suicidal ideation Endocrine Endocrinology: Denies systems reviewed and no addt'l complaints, except as documented Hematologic/Lymphatic Hematologic/Lymphatic: Denies anemia, easy bleeding, easy bruising or lymphadenopathy Allergic/Immunologic Allergic/Immunologic: Denies systems reviewed and no addt'l complaints, except as documented Physical Exam Const alert General Appearance: cooperative Orientation / Consciousness: oriented to person HEENT hearing grossly normal bilaterally Head and Scalp: normal to inspection Face and Sinus: face symmetric Nose: external nose normal Mouth: oral and palatal mucosa normal Eyes conjunctivae normal General Eye: normal appearance of both eyes Neck full ROM General: normal visual inspection Lymph Lymphatic: no lymphadenopathy noted Chest inspection of chest normal and palpation of chest normal Chest: symmetrical chest wall rise Resp normal respiratory effort Effort and Inspection: able to speak in complete sentences Cardio regular rate GI non-distended Percussion: normal to percussion Rectal Exam: deferred Neuro Speech: speech normal Gait (Neuro): normal gait Lab / Micro Data Result Diagrams: 07/09/21 04:50 07/09/21 04:50 Labs: Laboratory Results - last 24 hr 07/08/21 20:49: POC Glucose 121 H 07/09/21 04:50: WBC 13.3 H, RBC 3.45 L, Hgb 9.7 L, Hct 29.5 L, MCV 85.5, MCH 28.1, MCHC 32.9, RDW Std Deviation 47.0 H, RDW Coeff of Kaycee 15.0 H, Plt Count 229, MPV 10.2, Immature Gran % (Auto) 0.500, Neut % (Auto) 72.5 H, Lymph % (Auto) 15.4 L, [place] % (Auto) 9.0, Eos % (Auto) 1.9, Baso % (Auto) 0.7, Absolute Neuts (auto) 9.7 H, Absolute Lymphs (auto) 2.05, Nucleated RBC % 0 07/09/21 04:50: Sodium 140, Potassium 3.6, Chloride 110 H, Carbon Dioxide 24.0, Anion Gap 6, BUN 6 L, Creatinine 0.64, Estim Creat Clear Calc 82.16, Est GFR (MDRD) Af Amer 124, Est GFR (MDRD) Non-Af 103, BUN/Creatinine Ratio 9.4 L, Glucose 98, Calcium 8.4 L 07/09/21 04:50: Magnesium 1.7 07/09/21 07:03: POC Glucose 110 H 07/09/21 11:25: POC Glucose 173 H 07/09/21 16:28: POC Glucose 167 H Micro: Microbiology 07/09/21 01:45 Stool Stool Occult Blood (KATHY) - Final Occult Blood Positive Charges/Coding Visit Charges Inpatient E&M: 86278 Init Hosp L2
--- NOTE | 2021-07-09 18:30 | NURSING ---
Reviewed charting with Elio Rader RN
[2021-07-09] MEDS: Atorvastatin Calcium 80 MG Tablet PO (20:55)
[2021-07-09] MEDS: RisperiDONE 2 MG Tablet 4 MG PO (20:57)
[2021-07-09 21:06] LABS: Bedside Glucose 158 mg/dL (74-106)
--- NOTE | 2021-07-09 23:29 | CPS ---
Pt does not want to wear our bipap. She does not like it, due to the headgear and dryness
[2021-07-10] VITALS (11 sets, daily range): BP systolic 105–168; BP diastolic 70–94; PULSE 84–99; RESP 16–20; TEMP 36.7–37.1; O2SAT 93–100
[2021-07-10] MEDS: HYDROcodone Bitartrate/Apap 5/325 Tablet PO ×4 (04:57→15:22)
[2021-07-10 06:11] LABS: Absolute Lymphocyte Count 1.67 X10^3/uL (0.83-4.51); Absolute Neutrophil Count 8.8 X10^3/uL (2.0-7.7); Basophil# 0.07 X10^3/uL; Basophil% 0.6 % (0-1); Eosinophils% 2.5 % (0-5); Hematocrit 30.3 % (37-47); Hemoglobin 9.8 g/dL (12.0-15.0); Lymphocyte # 1.67 X10^3/ul (0.83-4.51); Mean Corp Hgb Conc 32.3 g/dL (32-36); Mean Corpuscular Hgb 27.7 pg (27.0-32.0); Mean Corpuscular Volume 85.6 fL (81-99); Mean Platelet Vol. 10.3 fl (6.2-12.0); Monocyte# 1.03 X10^3/uL; Monocyte% 8.6 % (0-10); NRBC Flagged by Analyzer 0 % (0-5); Neutrophil # 8.81 X10^3/uL (2.7-7.7); Neutrophil % 73.8 % (47-70); Platelet Count 223 K/mm3 (150-450); RBC Distribution Width SD 46.9 fl (35.1-43.9); Red Blood Count 3.54 M/mm3 (4.2-5.4); White Blood Count 11.9 K/mm3 (4.4-11.0)
[2021-07-10 06:52] LABS: Anion Gap 3 (5-15); BUN 4 mg/dL (7-18); BUN/Creat Ratio 7.7 RATIO (10-20); Calcium,Total 9.2 mg/dL (8.5-10.1); Chloride 108 mmol/L (98-107); Creatinine, Serum 0.52 mg/dL (0.55-1.02); EST Glomerular Filtration Rate 130 mL/min (>60); Est Glom Filt Rate - Afr Amer 158 mL/min (>60); Estimated Creatinine Clearance 101.12 ml/min; Glucose 122 mg/dL (74-106); Potassium 3.7 mmol/L (3.5-5.1); Sodium Level 138 mmol/L (136-145)
[2021-07-10 07:11] LABS: Bedside Glucose 125 mg/dL (74-106)
[2021-07-10] MEDS: Albuterol 2.5 MG/3 ML VIAL.NEB. INHALATION (07:18)
[2021-07-10] MEDS: Budesonide Respules 0.5 MG/2 ML AMPUL.NEB. INHALATION (07:19)
--- NOTE | 2021-07-10 08:05 | EGD_PTH ---
PATIENT: TALAT HAN LOC: [facility] U#:[id number] AGE/SX: 55/F ROOM: [facility] RE07/07/[address]: Dr. Claudia Elliott MD : 1965 BED: 1 DIS: 07/10/2021 SPEC #: [id number] RECD: 07/10/21 09:12 STATUS: ESTEFANY MOMIN #: [id number] KAYLI: 07/10/21 08:[address]: Ramo Silverman DEPT: SURGICAL PATHOLOGY RECD BY: Sofía Garcia ENTERED: 07/12/21 08:05 SP TYPE: EGD BIOPSY OTHR DR: MD Dr. Lincoln Polk DO Dr. Hannah Miedel, MD Dr. Nana Yaa Koram, MD Dr. Steven Widmer, MD Tissues: Gastric mucous membrane Procedures: Surgery Specimen Level IV Comments: @ Ordering doctor for EDILMA edited from to @ by VICTORIA at 07/12/21 1406 @ Submitting doctor edited from to @ by RGOOD at 07/12/21 1406 HEADER OPERATION: EGD ([facility]) PRE-OP DIAGNOSIS: Blood loss anemia TISSUE SUBMITTED: Gastric ulcer MICROSCOPIC DIAGNOSIS Gastric ulcer, biopsy: Ulceration with associated acute and chronic inflammation and granulation. AM:tera 07/13/2021 COMMENT The results of immunohistochemistry for Helicobacter pylori will be reported separately ([id number]). MICROSCOPIC DESCRIPTION Slides are reviewed. GROSS DESCRIPTION Received in fixative is one container labeled with the patient's name and designated gastric ulcer. The specimen consists of multiple irregular fragments of light steiner soft tissue that in aggregate measure 1.2 x 0.3 x 0.1 cm. The specimen is totally submitted in one cassette. / SJ:tera 07/12/2021 TC:2 CPT: 99949
--- NOTE | 2021-07-10 08:05 | IMM_PTH ---
PATIENT: TALAT HAN LOC: [facility] U#:[id number] AGE/SX: 55/F ROOM: [facility] RE07/07/[address]: Dr. Claudia Elliott MD : 1965 BED: 1 DIS: 07/10/2021 SPEC #: [id number] RECD: 07/13/21 10:33 STATUS: ESTEFANY REMalvin #: [id number] KAYLI: 07/10/21 08:[address]: Ramo Silverman DEPT: IMMUNOHISTOCHEMISTRY RECD BY: Maki Richard ENTERED: 07/13/21 10:34 SP TYPE: IMMUNO OTHR DR: MD Dr. Lincoln Polk DO Dr. Hannah Miedel, MD Dr. Nana Yaa Koram, MD Dr. Steven Widmer, MD Tissues: Stomach, NOS Procedures: H Pylori (initial) PHYSICIAN & INSTITUTION [place] [phone] SPECIMEN INFORMATION: Tissue Source: Gastric ulcer Clinical Info: Blood loss anemia Specimen Number: [id number] CPT code: 42205 METHODOLOGY: Deparaffinized sections of prefer/formalin-fixed tissue or PAP/DQ stained slides are incubated with monoclonal/polyclonal antibodies/oligonucleotide probes. Localization is made via biotin free immunoperoxidase method. Appropriate controls are performed and reacted as expected. Results on target cell population are indicated in the following table: RESULTS: ANTIBODY / CLONE RESULT H Pylori (polyclonal) negative These tests were developed and their performance characteristics determined by [facility]. They may not have been cleared or approved by the U.S. Food and Drug Administration. The FDA has determined that such clearance or approval is not necessary. The above immunohistochemical/dualISH markers are ordered and reviewed by the Pathologist. INTERPRETATION: Gastric ulcer, biopsy: Negative for Helicobacter pylori organisms. AM:tera 07/14/2021
--- NOTE | 2021-07-10 08:52 | OP.EGD_ITS ---
Patient Name: Crystal Nugent Procedure Date: 07/10/2021 7:48 AM Date of : 1965 Age: 55 Procedure: Upper GI endoscopy Indications: Iron deficiency anemia, Melena Providers: Ramo Silverman DO Medicines: Monitored Anesthesia Care Patient Profile: This is a 55 year old female. Refer to note in patient chart for documentation of history and physical. Patient has symptoms. She is status post colonoscopy (normal). She is status post laparoscopic cholecystectomy. Complications: No immediate complications. Procedure: Pre-Anesthesia Assessment: - Prior to the procedure, a History and Physical was performed, and patient medications and allergies were reviewed. The risks and benefits of the procedure and the sedation options and risks were discussed with the patient. All questions were answered and informed consent was obtained. Patient identification and proposed procedure were verified by the physician in the pre-procedure area. Mental Status Examination: alert and oriented. Airway Examination: normal oropharyngeal airway and neck mobility. Respiratory Examination: clear to auscultation. CV Examination: normal. Prophylactic Antibiotics: The patient does not require prophylactic antibiotics. Prior Anticoagulants: The patient has taken no previous anticoagulant or antiplatelet agents. After reviewing the risks and benefits, the patient was deemed in satisfactory condition to undergo the procedure. The anesthesia plan was to use moderate sedation / analgesia (conscious sedation). Immediately prior to administration of medications, the patient was re-assessed for adequacy to receive sedatives. The heart rate, respiratory rate, oxygen saturations, blood pressure, adequacy of pulmonary ventilation, and response to care were monitored throughout the procedure. The physical status of the patient was re-assessed after the procedure. After obtaining informed consent, the endoscope was passed under direct vision. Throughout the procedure, the patient's blood pressure, pulse, and oxygen saturations were monitored continuously. The gastroscope was introduced through the mouth, and advanced to the second part of duodenum. The upper GI endoscopy was accomplished without difficulty. The patient tolerated the procedure well. Moderate Sedation: Moderate (conscious) sedation was administered by the endoscopy nurse and supervised by the endoscopist. The patient's oxygen saturation, heart rate, blood pressure and response to care were monitored. Total physician intraservice time was 15 minutes. Scope In: 8:39:33 AM Scope Out: 8:44:47 AM Total Procedure Duration Time 0 hours 5 minutes 14 seconds Findings: The examined esophagus was normal. One oozing cratered gastric ulcer with a visible vessel was found in the gastric antrum. The lesion was 6 mm in largest dimension. For hemostasis, two hemostatic clips were successfully placed. There was no bleeding at the end of the procedure. One non-bleeding cratered gastric ulcer with no stigmata of bleeding was found in the gastric antrum. The lesion was 6 mm in largest dimension. Biopsies were taken with a cold forceps for histology. Verification of patient identification for the specimen was done. Estimated blood loss was minimal. The second portion of the duodenum was normal. Impression: - Normal esophagus. - Oozing gastric ulcer with a visible vessel. Clips were placed. - Non-bleeding gastric ulcer with no stigmata of bleeding. Biopsied. - Normal second portion of the duodenum. Recommendation: - [facility]. - Advance diet as tolerated. - Use sucralfate tablets 1 gram PO QID for 1 week. - Use Protonix (pantoprazole) 40 mg PO BID for 8 weeks. - Return to my office. - Continue present medications. Procedure Code(s): --- Professional --- 22300, 59, Esophagogastroduodenoscopy, flexible, transoral; with control of bleeding, any method 29380, Esophagogastroduodenoscopy, flexible, transoral; with biopsy, single or multiple G0500, Moderate sedation services provided by the same physician or other qualified health personal care attendant performing a gastrointestinal endoscopic service that sedation supports, requiring the presence of an independent trained observer to assist in the monitoring of the patient's level of consciousness and physiological status; initial 15 minutes of intra-service time; patient age 5 years or older (additional time may be reported with 67862, as appropriate) CPT copyright 2017 [employer]. All rights reserved. The codes documented in this report are preliminary and upon armament installer review may be revised to meet current compliance requirements. Ramo Silverman DO 07/10/2021 8:51:44 AM This report has been signed electronically. Number of Addenda: 1 Note Initiated On: 07/10/2021 7:48 AM Addendum Number: 1 Addendum Date: 12/03/2021 6:28:57 AM MAC was used as sedation for this procedure. Ramo Silverman DO 12/03/2021 6:29:04 AM This report has been signed electronically.
--- NOTE | 2021-07-10 08:53 | OP.CCLET_ITS ---
12/03/2021 Janel Taylor [address] [place] [address] Re : Upper GI endoscopy procedure for Crystal Nugent Dear Dr. Taylor This procedure was performed on Saturday, July 10, 2021. My impressions and recommendations are as follows: Impressions : - Normal esophagus. - Oozing gastric ulcer with a visible vessel. Clips were placed. - Non-bleeding gastric ulcer with no stigmata of bleeding. Biopsied. - Normal second portion of the duodenum. Recommendations : - [facility]. - Advance diet as tolerated. - Use sucralfate tablets 1 gram PO QID for 1 week. - Use Protonix (pantoprazole) 40 mg PO BID for 8 weeks. - Return to my office. - Continue present medications. My findings are described in the full procedure note, which is enclosed. If I can be of further assistance, please feel free to contact me at . Sincerely, Ramo Silverman, 07/10/2021 8:51:44 AM This report has been signed electronically.
--- NOTE | 2021-07-10 09:02 | PN_ITS ---
Subjective Subjective Patient underwent an upper endoscopy today. She was discovered to have a active bleeding gastric ulcer that was treated endoscopically. She does not have any pain at this time. Objective Data Objective Data Vital Signs: Vital Signs Temp Pulse Resp BP Pulse Ox 98.7 F 97 16 167/82 H 99 07/10/21 08:49 07/10/21 09:00 07/10/21 09:00 07/10/21 09:00 07/10/21 09:00 Oxygen Delivery Method Room Air Weight: 227 lb 15.327 oz Body Mass Index (BMI) 38.1 Intake & Output: Intake and Output for Last 24 Hours 07/08/21 07/09/21 07/10/21 23:59 23:59 23:59 Intake Total 2753.5 / 2753.5 1200 / 1200 36.5 / 36.5 Output Total 1730 / 1730 Balance 1023.5 / 1023.5 1200 / 1200 36.5 / 36.5 Lab / Micro Data Result Diagrams: 07/10/21 05:40 07/10/21 05:40 Labs: Laboratory Results - last 24 hr 07/09/21 11:25: POC Glucose 173 H 07/09/21 16:28: POC Glucose 167 H 07/09/21 20:53: POC Glucose 158 H 07/10/21 05:40: WBC 11.9 H, RBC 3.54 L, Hgb 9.8 L, Hct 30.3 L, MCV 85.6, MCH 27.7, MCHC 32.3, RDW Std Deviation 46.9 H, RDW Coeff of Kaycee 15.0 H, Plt Count 223, MPV 10.3, Immature Gran % (Auto) 0.500, Neut % (Auto) 73.8 H, Lymph % (Auto) 14.0 L, [place] % (Auto) 8.6, Eos % (Auto) 2.5, Baso % (Auto) 0.6, Absolute Neuts (auto) 8.8 H, Absolute Lymphs (auto) 1.67, Nucleated RBC % 0 07/10/21 05:40: Sodium 138, Potassium 3.7, Chloride 108 H, Carbon Dioxide 27.0, Anion Gap 3 L, BUN 4 L, Creatinine 0.52 L, Estim Creat Clear Calc 101.12, Est GFR (MDRD) Af Amer 158, Est GFR (MDRD) Non-Af 130, BUN/Creatinine Ratio 7.7 L, Glucose 122 H, Calcium 9.2 07/10/21 06:52: POC Glucose 125 H Micro: Microbiology 07/07/21 18:50 Urine, Catheterized Urine Culture - Final Culture exhibits no growth. 07/07/21 18:40 Blood Culture (Wb) - Anticubital Right Blood Culture - Preliminary No growth in 48 hours. 07/07/21 19:10 Blood Culture (Wb) - Left Forearm Blood Culture - Preliminary No growth in 48 hours. 07/09/21 01:45 Stool Stool Occult Blood (KATHY) - Final Occult Blood Positive Physical Exam Const alert General Appearance: cooperative Orientation / Consciousness: oriented to person HEENT hearing grossly normal bilaterally Head and Scalp: normal to inspection Face and Sinus: face symmetric Nose: external nose normal Mouth: oral and palatal mucosa normal Eyes conjunctivae normal General Eye: normal appearance of both eyes Neck full ROM General: normal visual inspection Lymph Lymphatic: no lymphadenopathy noted Chest inspection of chest normal and palpation of chest normal Chest: symmetrical chest wall rise Resp normal respiratory effort Effort and Inspection: able to speak in complete sentences Cardio regular rate GI non-distended Percussion: normal to percussion Rectal Exam: deferred Neuro Speech: speech normal Gait (Neuro): normal gait Assessment & Plan Assessment/Plan (1) Blood loss anemia: PLAN: Acute blood loss anemia secondary to bleeding gastric ulcer likely secondary to Plavix and Eliquis. I will hold both medicines for 1 more days and administer Protonix 40 mg twice a day for 8 weeks and Carafate 1 g 4 times a day for 1 week. She can have a full liquid diet today and advance as tolerated tomorrow. Charges/Coding Visit Charges Inpatient E&M: 56300 Subs Hosp L2
[2021-07-10] MEDS: Fluticasone 0.05% 1 SPRAY NASAL.SRY NASAL (09:35)
[2021-07-10] MEDS: Potassium Chloride Oral Tablet 20 MEQ 40 MEQ PO (09:35)
[2021-07-10] MEDS: busPIRone 15 MG TABLET 30 MG PO (09:35)
[2021-07-10] MEDS: lamoTRIgine 150 MG Tablet PO (09:36)
[2021-07-10] MEDS: guaiFENesin 600 MG Tablet PO (09:36)
[2021-07-10] MEDS: Escitalopram Oxalate 20 MG Tablet PO (09:36)
[2021-07-10] MEDS: Mirabegron 25 MG TAB.ER.24H PO (09:36)
[2021-07-10] MEDS: Montelukast 10 MG Tablet PO (09:38)
[2021-07-10] MEDS: CHLORHEXIDINE GLUC 2% CLOTH 1 EACH TOWELETTE TOPICAL (09:46)
[2021-07-10] MEDS: Pregabalin 75 MG Capsule PO ×2 (09:46→15:22)
[2021-07-10] MEDS: 0.9% Saline Lock 10 ML Syringe IV (10:01)
[2021-07-10 11:50] LABS: Bedside Glucose 140 mg/dL (74-106)
--- NOTE | 2021-07-10 14:41 | DCINST_ITS ---
Discharge Instructions Diet Discharge Diet: Low fat / Low cholesterol Activity Discharge Activity: Return to Normal Activity Weight Bearing Status: Weight bearing as tolerated Dressing / Incision Call your doctor if you observe: Fever of 101 or Higher, Shortness of breath, Dizziness, Swelling in the ankles, Chest pain and Increased palpitations (irregular heartbeat) Follow Up Care Test Results: Test results from this visit will be discussed in further detail at your follow-up appointment, if applicable. Discharge Plan Admission Admit Date/Time: 07/07/21 20:32 Primary Reason for Your Visit: acute on chronic anemia, shock Attending Provider: Claudia Elliott Primary Care Provider: Janel Taylor Consulting Providers: Monica Barragan ; Lincoln Gaona ; Pop Yung Instructions Patient Instructions: Anemia Additional Instructions / Restrictions: to resume eliquis and plavix tomorrow 07/11/2021 Discharge Orders/Prescriptions Prescriptions: New pantoprazole 40 mg tablet,delayed release (DR/EC) 40 mg PO BID Qty: 60 RF: 1 sucralfate 1 gram tablet 1 g PO Q6H Qty: 30 RF: 0 Continued albuterol sulfate 2.5 mg /3 mL (0.083 %) solution for nebulization 2.5 mg inhalation Q4H PRN (Reason: Sob &/Or Wheezing) Qty: 180 RF: 3 montelukast 10 mg tablet 10 mg PO DAILY RF: 0 atorvastatin 80 MG tablet 80 mg PO QHS RF: 0 risperidone 4 mg tablet 4 mg PO QHS RF: 0 trazodone 100 MG tablet 200 mg PO QHS PRN (Reason: Insomnia) RF: 0 pregabalin 75 MG capsule 75 mg PO TID RF: 0 buspirone 30 mg tablet 30 mg PO BID RF: 0 furosemide 20 MG tablet 20 mg PO DAILY RF: 0 Hold Instructions: Resume on 01/22/21. mirabegron 25 MG tablet extended release 24 hr 25 mg PO DAILY RF: 0 apixaban 5 MG tablet 5 mg PO BID RF: 0 clopidogrel 75 mg tablet 75 mg PO DAILY RF: 0 promethazine 25 mg Tablet 25 mg PO BID PRN PRN (Reason: Nausea) RF: 0 escitalopram oxalate 20 mg Tablet 20 mg PO DAILY RF: 0 Advair HFA 230-21 mcg/actuation Hfa Aerosol Inhaler 2 puff INHALATION BID RF: 0 albuterol sulfate 1 PUFF HFA aerosol inhaler 2 puff IH Q4H PRN PRN (Reason: SOB &/or Wheezing ) RF: 0 fluticasone propionate 50 mcg/actuation [place],Suspension 1 spray INTRANASAL BID RF: 0 potassium chloride [K-Tab] 20 mEq tablet extended release 40 meq PO DAILY RF: 0 lamotrigine 150 mg tablet 150 mg PO DAILY RF: 0 metoprolol succinate 50 mg tablet extended release 24 hr 50 mg PO DAILY RF: 0 amlodipine 10 mg tablet 10 mg PO DAILY RF: 0 lisinopril 20 MG tablet 20 mg PO QHS RF: 0 hydrocodone-acetaminophen 1 TABLET tablet 1 tab PO Q4H PRN PRN (Reason: Pain) 2 Days Qty: 10 RF: 0 tiotropium bromide 2.5 mcg/actuation mist 2 puff INHALATION DAILY Qty: 4 RF: 3 Discontinued omeprazole 20 mg capsule,delayed release(DR/EC) 20 mg PO DAILY RF: 0 Referrals / Follow Up: Janel Taylor MD [Primary Care Provider] - Within 2 Weeks Ramo Silverman DO [STAFF PHYSICIAN] - Within 2 Weeks Disposition Disposition (needs filled in before D/C Order can be placed): Home, Self Care
--- NOTE | 2021-07-10 14:43 | PCM.DC.SUM ---
Providers Date of Admission: 07/07/21 Primary Care Physician: Dr. Janel Taylor MD Consultations 07/07/21 21:33 Consult: Director Of Investigations / Pulmonary Medicine Routine Consulting Provider: Lincoln Gaona Reason for Consult: Hemorrhagic shock suspected, recent surgery. EMERGENT Consult: No Notified: Yes Date Notified: 07/07/21 Time Notified: 20:39 Method of Notification: Text Consult: Orthopedics Routine Consulting Provider: Pop Yung Reason for Consult: Recent OR, admit w/ hypotension, acute blood loss anemia suspected EMERGENT Consult: No Notified: Yes Date Notified: 07/07/21 Time Notified: 20:43 Method of Notification: Text 07/09/21 08:52 Consult: Gastroenterology Routine Consulting Provider: [facility] Reason for Consult: GI bleed EMERGENT Consult: No Notified: Yes Date Notified: 07/09/21 Time Notified: 08:53 Method of Notification: md to md 07/09/21 10:42 Consult: Gastroenterology Routine Consulting Provider: [facility] Reason for Consult: anemia, with positive occult blood in stool EMERGENT Consult: No Notified: Yes Date Notified: 07/09/21 Time Notified: 10:42 Method of Notification: Verbal Reason For Visit: HEMORRHAGIC SHOCK, ACUTE BLOOD LOSS ANEMIA Diagnosis Discharge Diagnosis (1) Blood loss anemia: Status: Acute Code(s): D50.0 - Iron deficiency anemia secondary to blood loss (chronic) (2) Hypotension: Status: Acute Code(s): I95.9 - Hypotension, unspecified (3) Peptic ulcer: Status: Acute Code(s): K27.9 - Peptic ulcer, site unspecified, unspecified as acute or chronic, without hemorrhage or perforation Medications at Discharge Home Medications atorvastatin 80 mg PO QHS 08/22/15 pregabalin 75 mg PO TID 03/08/18 risperidone 4 mg PO QHS 03/08/18 trazodone 200 mg PO QHS PRN 03/08/18 furosemide 20 mg PO DAILY 11/20/18 mirabegron 25 mg PO DAILY 11/20/18 apixaban 5 mg PO BID 05/02/19 buspirone 30 mg tablet 30 mg PO BID tab 06/27/19 tiotropium bromide 2.5 mcg/actuation mist for inhalation 2 puff INHALATION DAILY #4 g 09/30/19 clopidogrel 75 mg PO DAILY 07/31/20 Advair HFA 2 puff INHALATION BID 11/14/20 albuterol sulfate 2 puff IH Q4H PRN PRN 11/14/20 escitalopram oxalate 20 mg PO DAILY 11/14/20 fluticasone propionate 1 spray INTRANASAL BID 11/14/20 promethazine 25 mg PO BID PRN PRN 11/14/20 potassium chloride [K-Tab] 40 meq PO DAILY 01/13/21 amlodipine 10 mg PO DAILY 05/21/21 lamotrigine 150 mg PO DAILY 05/21/21 lisinopril 20 mg PO QHS 05/21/21 metoprolol succinate 50 mg PO DAILY 05/21/21 albuterol sulfate 2.5 mg INHALATION Q4H PRN #180 ml 05/25/21 hydrocodone-acetaminophen 1 tab PO Q4H PRN PRN 2 Days #10 tablet 05/26/21 montelukast 10 mg tablet 10 mg PO DAILY 06/29/21 pantoprazole 40 mg PO BID #60 tab 07/10/21 sucralfate 1 g PO Q6H #30 tab 07/10/21 Hospital Course Operations None Procedures EGD Summary of Care Provided Minutes Spent on Discharge: 45 Hospital Course: Patient is a 55 y/o female with a PMH as outlined who was admitted via the ED on 07/10/2021 with a complaint of near syncope. She had had revision of her right hip joint by orthopedic surgery in [place] and had been discharged home the day before. She said she ws weak and tired when she got home, and hadnt been able to eat or drink much. On admission, she was hypotensive, with blood pressure in the 50s systolic. CBC showed Hb of 7.4, which subsequently dropped to 6.9. SHe was admitted to the ICU and transfused with 2 units of PRBCs as well as hydrated with IVF. Lactic acid was also elevated, which trended down with hydration. She was started on IV PPI. Stool for occult blood was positive so gastroenterology was consulted. She had EGD on 07/10/2021 which showed 1 oozing cratered gastric ulcer with a visible vessel in the gastric antrum which was 6 mm in the largest diameter was successfully clipped. She also had 1 nonbleeding cratered gastric ulcer with no stigmata of bleeding biopsies of which were taken. She was placed on p.o. pantoprazole 40 mg twice daily for 8 weeks as well as sucralfate before and after meals for 1 week per gastroenterology recommendations. By gastroenterology she was to stay off her Plavix and Eliquis until 07/11/2021 when she could resume the stated meds. She remained stable and was discharged on 07/10/2021. She is follow-up with her primary care doctor and gastroenterology as well as orthopedic surgery. Patient seen and examined prior to discharge. She felt well and had no complaitns. She had an uneventful night and review of systems was otherwise negative. Labs and vitals reviewed. Home meds reviewed and reconciled. Physical Exam Const alert, oriented x3 and no apparent distress Constitutional Narrative: morbidly obese General Appearance: cooperative, comfortable and well kempt Exam Limitations: no limitations HEENT normocephalic, head/scalp atraumatic, hearing grossly normal bilaterally and moist oral mucous membranes Eyes PERRL, EOMs intact bilaterally and conjunctivae normal Neck no lymphadenopathy, supple and no JVD Resp normal respiratory effort, no retractions, no use of accessory muscles and clear to auscultation bilaterally Cardio regular rate, regular rhythm, S1 normal heart sound, S2 normal heart sound and no murmurs GI normal to inspection, nondistended, normoactive bowel sounds, soft to palpation, non-tender and non-distended Extremity Extremity Narrative: intact dressing over right hip; miminal tenderness swelling, no extensive bruising Skin no rashes or lesions noted Skin Narrative: as under extremities Neuro oriented x3, CN's II-XII intact bilaterally and moves all extremities Sensorium / Orientation: awake and alert Psych affect normal Weight / BMI Weight Weight: 227 lb 15.327 oz Body Mass Index (BMI) 38.1 ABG / Lab / Microbiology Data Result Diagrams: 07/10/21 05:40 07/10/21 05:40 Laboratory: Laboratory Results - last 24 hr 07/09/21 16:28: POC Glucose 167 H 07/09/21 20:53: POC Glucose 158 H 07/10/21 05:40: WBC 11.9 H, RBC 3.54 L, Hgb 9.8 L, Hct 30.3 L, MCV 85.6, MCH 27.7, MCHC 32.3, RDW Std Deviation 46.9 H, RDW Coeff of [place] 15.0 H, Plt Count 223, MPV 10.3, Immature Gran % (Auto) 0.500, Neut % (Auto) 73.8 H, Lymph % (Auto) 14.0 L, [place] % (Auto) 8.6, Eos % (Auto) 2.5, Baso % (Auto) 0.6, Absolute Neuts (auto) 8.8 H, Absolute Lymphs (auto) 1.67, Nucleated RBC % 0 07/10/21 05:40: Sodium 138, Potassium 3.7, Chloride 108 H, Carbon Dioxide 27.0, Anion Gap 3 L, BUN 4 L, Creatinine 0.52 L, Estim Creat Clear Calc 101.12, Est GFR (MDRD) Af Amer 158, Est GFR (MDRD) Non-Af 130, BUN/Creatinine Ratio 7.7 L, Glucose 122 H, Calcium 9.2 07/10/21 06:52: POC Glucose 125 H 07/10/21 11:44: POC Glucose 140 H Microbiology: Microbiology 07/07/21 18:50 Urine, Catheterized Urine Culture - Final Culture exhibits no growth. 07/07/21 18:40 Blood Culture (Wb) - Anticubital Right Blood Culture - Preliminary No growth in 48 hours. 07/07/21 19:10 Blood Culture (Wb) - Left Forearm Blood Culture - Preliminary No growth in 48 hours. 07/09/21 01:45 Stool Stool Occult Blood (KATHY) - Final Occult Blood Positive D/C Instructions Discharge Diet: Low fat / Low cholesterol Weight Bearing Status: Weight bearing as tolerated Call your doctor if you observe: Fever of 101 or Higher, Shortness of breath, Dizziness, Swelling in the ankles, Chest pain and Increased palpitations (irregular heartbeat) Meaningful Use Info Meaningful Use Diagnoses (Choose all that apply): None applicable Discharge Plan Admission Admit Date/Time: 07/07/21 20:32 Primary Reason for Your Visit: acute on chronic anemia, shock Attending Provider: Claudia Elliott Primary Care Provider: Janel Taylor Consulting Providers: Monica Barragan ; Lincoln Gaona ; Pop Yung Instructions Patient Instructions: Anemia Additional Instructions / Restrictions: to resume eliquis and plavix tomorrow 07/11/2021 Discharge Orders/Prescriptions Prescriptions: New pantoprazole 40 mg tablet,delayed release (DR/EC) 40 mg PO BID Qty: 60 RF: 1 sucralfate 1 gram tablet 1 g PO Q6H Qty: 30 RF: 0 Continued albuterol sulfate 2.5 mg /3 mL (0.083 %) solution for nebulization 2.5 mg inhalation Q4H PRN (Reason: Sob &/Or Wheezing) Qty: 180 RF: 3 montelukast 10 mg tablet 10 mg PO DAILY RF: 0 atorvastatin 80 MG tablet 80 mg PO QHS RF: 0 risperidone 4 mg tablet 4 mg PO QHS RF: 0 trazodone 100 MG tablet 200 mg PO QHS PRN (Reason: Insomnia) RF: 0 pregabalin 75 MG capsule 75 mg PO TID RF: 0 buspirone 30 mg tablet 30 mg PO BID RF: 0 furosemide 20 MG tablet 20 mg PO DAILY RF: 0 Hold Instructions: Resume on 01/22/21. mirabegron 25 MG tablet extended release 24 hr 25 mg PO DAILY RF: 0 apixaban 5 MG tablet 5 mg PO BID RF: 0 clopidogrel 75 mg tablet 75 mg PO DAILY RF: 0 promethazine 25 mg Tablet 25 mg PO BID PRN PRN (Reason: Nausea) RF: 0 escitalopram oxalate 20 mg Tablet 20 mg PO DAILY RF: 0 Advair HFA 230-21 mcg/actuation Hfa Aerosol Inhaler 2 puff INHALATION BID RF: 0 albuterol sulfate 1 PUFF HFA aerosol inhaler 2 puff IH Q4H PRN PRN (Reason: SOB &/or Wheezing ) RF: 0 fluticasone propionate 50 mcg/actuation [place],Suspension 1 spray INTRANASAL BID RF: 0 potassium chloride [K-Tab] 20 mEq tablet extended release 40 meq PO DAILY RF: 0 lamotrigine 150 mg tablet 150 mg PO DAILY RF: 0 metoprolol succinate 50 mg tablet extended release 24 hr 50 mg PO DAILY RF: 0 amlodipine 10 mg tablet 10 mg PO DAILY RF: 0 lisinopril 20 MG tablet 20 mg PO QHS RF: 0 hydrocodone-acetaminophen 1 TABLET tablet 1 tab PO Q4H PRN PRN (Reason: Pain) 2 Days Qty: 10 RF: 0 tiotropium bromide 2.5 mcg/actuation mist 2 puff INHALATION DAILY Qty: 4 RF: 3 Discontinued omeprazole 20 mg capsule,delayed release(DR/EC) 20 mg PO DAILY RF: 0 Referrals / Follow Up: Janel Taylor MD [Primary Care Provider] - Within 2 Weeks Ramo Silverman DO [STAFF PHYSICIAN] - Within 2 Weeks Disposition Disposition (needs filled in before D/C Order can be placed): Home, Self Care Charges/Coding Visit Charges Inpatient E&M: 20606 Disch Hosp
== END 2021-07-10 16:25 | disposition home or self-care (01) | DRG 377 ==
LOC: ED 20:27 → ICU 20:52 → PCU 07-08 14:38
PROVIDERS: Internal Medicine Gastroenterology; Admitting Provider Family Medicine; Emergency Provider Emergency Medicine; PCP Family Medicine; Visit Provider Student in an Organized Health Care Education/Training Program
PROC: 0DJ08ZZ Inspection of Upper Intestinal Tract, Via Natural or Artificial Opening Endoscopic (ICD-10-PCS; CPT 43235; principal; 2021-07-10 08:00)
DX: K25.0 Acute gastric ulcer with hemorrhage (principal); R57.8 Other shock; R57.1 Hypovolemic shock; N17.9 Acute kidney failure, unspecified; D62 Acute posthemorrhagic anemia; I51.81 Takotsubo syndrome; I27.20 Pulmonary hypertension, unspecified; F25.9 Schizoaffective disorder, unspecified; E11.40 Type 2 diabetes mellitus with diabetic neuropathy, unspecified; D50.9 Iron deficiency anemia, unspecified; E66.01 Morbid (severe) obesity due to excess calories; J43.9 Emphysema, unspecified; I10 Essential (primary) hypertension; J45.909 Unspecified asthma, uncomplicated; I95.1 Orthostatic hypotension; F41.9 Anxiety disorder, unspecified; I25.10 Atherosclerotic heart disease of native coronary artery without angina pectoris; F17.210 Nicotine dependence, cigarettes, uncomplicated; G47.33 Obstructive sleep apnea (adult) (pediatric); E78.5 Hyperlipidemia, unspecified; K21.9 Gastro-esophageal reflux disease without esophagitis; I25.2 Old myocardial infarction; T45.515A Adverse effect of anticoagulants, initial encounter; Z95.5 Presence of coronary angioplasty implant and graft; Y83.1 Surgical operation with implant of artificial internal device as the cause of abnormal reaction of the patient, or of later complication, without mention of misadventure at the time of the procedure; Z68.39 Body mass index [BMI] 39.0-39.9, adult; Z79.02 Long term (current) use of antithrombotics/antiplatelets; Z79.01 Long term (current) use of anticoagulants; Z79.51 Long term (current) use of inhaled steroids; G89.4 Chronic pain syndrome; Z99.81 Dependence on supplemental oxygen; Z79.899 Other long term (current) drug therapy; Z98.84 Bariatric surgery status
CPT/HCPCS: 36415; 71045; 73502; 80048; 80053; 81001; 82274; 82962; 83605; 83735; 84484; 85014; 85018; 85025; 85610; 85730; 86850; 86900; 86901; 86920; 86922; 87040; 87086; 88305; 88342; 93005; 93458; 94002; 94003; 94640; 94762; 97110; 97162; 97166; 97530; 97535; 99152; 99153; 99251; 99285; 99406; J7030; J7040; J7050; P9016; P9612; A4216; C1769; C1894; G0463; J2405; Q9967

== ENCOUNTER 2021-08-05 15:39 | Observation (INO) | payer MEDICARE, MEDICAID, SELFPAY ==
[2021-08-05] VITALS (8 sets, daily range): BP systolic 72–109; BP diastolic 54–69; PULSE 57–102; RESP 14–18; TEMP 35.5–37.2; O2SAT 92–97; BMI 39.6; BMI 35.9
--- NOTE | 2021-08-05 15:54 | CT_ITS ---
STUDY: CT CERVICAL SPINE WITHOUT CONTRAST REASON FOR EXAM: Female, 55 years old. Polytrauma. Syncopal episode at doctor''s office today. Patient on blood thinners. RADIATION DOSAGE (If Supplied By Facility): CTDIvol = ( 24.08 ) mGy, DLP = ( 464.56 ) mGycm TECHNIQUE: High resolution transaxial imaging was performed without contrast material. Sagittal and coronal images were reconstructed. Individualized dose optimization techniques were used for this CT. COMPARISON: None FINDINGS: Normal craniovertebral junction. Normal anterior atlantoaxial articulation. Normal odontoid process. Normal cervical lordosis. Mild levoscoliosis. Normal vertebral bodies and posterior osseous elements. C2-3: Normal endplates. Normal disc height and morphology. Normal central canal and intervertebral neuroforamina. C3-4: Normal endplates. Normal disc height and morphology. Facet joint degenerative change. Normal central canal and intervertebral neuroforamina. C4-5: Normal endplates. Normal disc height and morphology. Facet joint degenerative changes, right greater than left. Normal central canal. Narrowing of the right intervertebral neuroforamen. C5-6: Normal endplates. Normal disc height and morphology. Facet joint degenerative change. Normal central canal and intervertebral neuroforamina. C6-7: Mild loss of disc height with mild endplate spondylosis. Facet and uncovertebral joint degenerative change mild stenosis of the central canal. Normal intervertebral neuroforamina. C7-T1: Normal endplates. Normal disc height and morphology. Normal central canal and intervertebral neuroforamina. Bilateral carotid artery calcifications. CT/Spine Cervical without Contras IMPRESSION: Degenerative changes of the cervical spine without acute fracture or subluxation. Note: MRI is more sensitive than CT in detecting cord injury, ligamentous injury and epidural hematoma. If there is continued clinical concern for any of these entities, MRI should be considered. Electronically Signed: Nathaniel Venegas DO at 17:04 EDT ,
--- NOTE | 2021-08-05 15:54 | CT_ITS ---
STUDY: CT BRAIN WITHOUT CONTRAST REASON FOR EXAM: Female, 55 years old. Head injury after syncopal episode. Orthopedic office. Dizziness. Patient on blood thinners. RADIATION DOSAGE (If Supplied By Facility): CTDIvol = ( 44.99 ) mGy, DLP = ( 829.85 ) mGycm TECHNIQUE: Transaxial CT imaging of the brain was performed without administration of intravenous contrast material. Individualized dose optimization techniques were used for this CT. COMPARISON: MRI brain, 06/14/2021. FINDINGS: Normal soft tissue prominence over the right frontal region. Normal calvarium. There is mild cerebral atrophy without widening of the extra-axial spaces and ventricular dilatation. There are areas of decreased attenuation within the white matter tracts of the supratentorial brain, consistent with microvascular disease changes. Normal basal ganglia and thalami. Normal brainstem. Normal cerebellum. There is no intracranial hemorrhage. There are no findings of an acute ischemic infarction. Normal visualized paranasal sinuses. CT/Brain/Head without Contrast IMPRESSION: Chronic involutional changes without evidence of acute intracranial or calvarial abnormality. No major interval change. Electronically Signed: Nathaniel Venegas DO at 17:01 EDT Reading Location ID and State: [address] [place] [address] Tel [phone], Service support ,
--- NOTE | 2021-08-05 15:55 | EKG12_ITS ---
Test Reason : DIZZY Blood Pressure : / mmHG Vent. Rate : 105 BPM Atrial Rate : 105 BPM P-R Int : 138 ms QRS Dur : 082 ms QT Int : 350 ms P-R-T Axes : 030 -02 035 degrees QTc Int : 462 ms Sinus tachycardia Otherwise normal ECG Confirmed by MARYAM TAFOYA, JAZZMINE ([id number]), editorial specialist MARTHA SCOTT ([id number]) on 08/09/2021 12:51:50 PM Referred By: RITA Confirmed By:JAZZMINE FRANCISCO MD
--- NOTE | 2021-08-05 15:56 | ED.VIS.FALL ---
HPI HPI - Fall History of Present Illness Chief Complaint: Dizziness Informant: patient Narrative Narrative: Presenting with dizzy spinning throughout the day. Caused her to fall hit her head passing out on the hard ground. No chest pains. States been vomiting for 2 days however none today. Currently not nauseated. History of coronary disease with heart failure she is on a diuretic daily. No urinary symptoms. History of vertigo in the past. Patient takes Plavix for coronary disease. Reports on Eliquis for history of multiple PEs. No neck or back extremity pain. Feels dehydrated per patient. Denies diarrhea. Denies sick contacts. Reports decreased urine output. No dysuria... Prior similar symptoms: Yes PFSH PFSH Medical History Anemia Asthma Atherosclerotic heart disease of [place] coronary artery without angina pectoris Benign essential hypertension BiPAP (biphasic positive airway pressure) dependence Bleeding tendency Blood loss anemia CAD (coronary artery disease) Cardiac dysrhythmia Chest pain Chest pain at rest Chronic cough Chronic narcotic use Closed fracture of proximal end of fibula COPD (chronic obstructive pulmonary disease) Current use of insulin Delayed surgical wound healing Diabetes Dislocation of hip, right, closed Emphysema of lung Gastroesophageal reflux disease High cholesterol Hip osteoarthritis History of left heart catheterization (LHC) (~07/05/21) History of pulmonary embolism History of revision of total replacement of right hip joint History of stress test Hypertension Irregular heart beat Irritable bowel Morbid obesity Morbid obesity with BMI of 45.0-49.9, adult Myocardial infarct On home oxygen therapy RACHEL (obstructive sleep apnea) Pancreatitis Peptic ulcer Preoperative cardiovascular examination Presence of stent in coronary artery (~02/07/11) Pulmonary hypertension Schizoaffective disorder Schizophrenia Sleep apnea Smoker Spinal stenosis of lumbar region at multiple levels Stage 2 moderate COPD by GOLD classification Suspected COVID-19 virus infection Takotsubo cardiomyopathy Thyroid nodule Tobacco abuse Ulcer Vitamin D deficiency Home Medications atorvastatin 80 mg PO QHS 08/22/15 [History Last Taken 08/03/21] pregabalin 75 mg PO TID 03/08/18 [History Last Taken 08/03/21] risperidone 4 mg PO QHS 03/08/18 [History Last Taken 08/04/21] trazodone 200 mg PO QHS PRN 03/08/18 [History Last Taken 08/04/21] furosemide 20 mg PO DAILY 11/20/18 [History Last Taken 08/03/21] mirabegron 25 mg PO DAILY 11/20/18 [History Last Taken 08/03/21] apixaban 5 mg PO BID 05/02/19 [History Last Taken 08/03/21] buspirone 30 mg tablet 30 mg PO BID tab 06/27/19 [History Last Taken 08/03/21] tiotropium bromide 2.5 mcg/actuation mist for inhalation 2 puff INHALATION DAILY #4 g 09/30/19 [Rx Last Taken 08/05/21] clopidogrel 75 mg PO DAILY 07/31/20 [History Last Taken 08/03/21] Advair HFA 2 puff INHALATION BID 11/14/20 [History Last Taken 08/05/21] albuterol sulfate 2 puff IH Q4H PRN PRN 11/14/20 [History Last Taken 08/05/21] escitalopram oxalate 20 mg PO DAILY 11/14/20 [History Last Taken 08/03/21] fluticasone propionate 1 spray INTRANASAL BID 11/14/20 [History Last Taken 08/03/21] promethazine 25 mg PO BID PRN PRN 11/14/20 [History Last Taken 08/04/21] potassium chloride [K-Tab] 40 meq PO DAILY 01/13/21 [History Last Taken 08/05/21] amlodipine 10 mg PO DAILY 05/21/21 [History Last Taken 08/03/21] lisinopril 20 mg PO QHS 05/21/21 [History Last Taken 08/03/21] metoprolol succinate 50 mg PO DAILY 05/21/21 [History Last Taken 08/03/21] albuterol sulfate 2.5 mg INHALATION Q4H PRN #180 ml 05/25/21 [Rx Last Taken Unknown] hydrocodone-acetaminophen 1 tab PO Q4H PRN PRN 2 Days #10 tablet 05/26/21 [Rx Last Taken 08/05/21] montelukast 10 mg tablet 10 mg PO DAILY 06/29/21 [History Last Taken 08/03/21] pantoprazole 40 mg PO BID 08/05/21 [History Last Taken 08/03/21] sucralfate 1 g PO Q6H 08/05/21 [History Last Taken 08/04/21] Allergy/AdvReac Type Severity Reaction Status Date / Time tramadol [From Ultram] Allergy Severe Blisters, Verified 08/05/21 15:41 itching amoxicillin Allergy Itching Verified 08/05/21 15:41 erythromycin base Allergy Unknown Verified 08/05/21 15:41 methadone Allergy Itching Verified 08/05/21 15:41 metolazone Allergy Unknown Verified 08/05/21 15:41 Penicillins Allergy Hives Verified 08/05/21 15:41 Sulfa (Sulfonamide Allergy Hives Verified 08/05/21 15:41 Antibiotics) clarithromycin [From Biaxin] AdvReac Nausea Verified 08/05/21 15:41 ibuprofen AdvReac 3 BLEEDING Verified 08/05/21 15:41 ULCERS morphine AdvReac HEADACHE Verified 08/05/21 15:41 oxycodone [From Percocet] AdvReac Itching Verified 08/05/21 15:41 Family History Mother Heart disease Cancer uterine Father Hypertension Arthritis Hyperlipemia Grandmother Breast cancer Heart disease Grandfather Heart disease Sister Hypertension Surgical History History of appendectomy History of carpal tunnel surgery of left wrist History of cholecystectomy History of gastric bypass History of gastric bypass History of right ankle surgery history of right hip surgery History of tonsillectomy Presence of coronary angioplasty implant and graft (~02/07/11) Social History household members: none Smoking Status: Current every day smoker tobacco type: cigarettes alcohol intake: never substance use type: does not use caffeine: Yes (occasional) what type of physical activity do you participate in: none ROS ROS ED Constitutional Constitutional ED: Denies chills, fever(s) or sweats Eyes Eyes: Denies change in vision ENT ENT ED: Denies dysphagia or sore throat Cardiovascular Cardiovascular: Denies chest pain, leg edema, palpitations or racing heartbeat Respiratory/Chest Respiratory/Chest: Denies cough, dyspnea or dyspnea on exertion Gastrointestinal Gastrointestinal: Reports nausea and vomiting; Denies abdominal pain or diarrhea Genitourinary Genitourinary ED: Denies dysuria, hematuria or urinary frequency Musculoskeletal Musculoskeletal: Denies back pain, extremity pain or neck pain Integumentary Denies rash or wounds Neurologic Neurologic: Reports headache(s) and other Details: Dizziness ; Denies paresthesias or weakness EXAM Physical Exam Const Vital Signs: 08/05/21 15:41 08/05/21 16:05 08/05/21 16:06 Temperature 96 F L Temperature Source Temporal Pulse Rate 57 L Respiratory Rate 18 Respiratory Effort Normal Respiratory Depth Normal Respiratory Pattern Normal Normal Blood Pressure 109/64 Blood Pressure Mean 79 Pulse Ox 97 Oxygen Delivery Method Room Air Room Air 08/05/21 16:58 08/05/21 17:29 Temperature Temperature Source Pulse Rate 98 Respiratory Rate 14 Respiratory Effort Respiratory Depth Respiratory Pattern Blood Pressure 106/69 Blood Pressure Mean 81 Pulse Ox 92 97 Oxygen Delivery Method Room Air Room Air Positive well nourished and well developed Constitutional Narrative: GCS 15. General Appearance ED: well developed and NAD HEENT Reports moist mucous membranes HEENT Narrative: Ecchymosis upper outer right brow. No hemotympanums. No bony tenderness. normocephalic Eyes PERRL, EOMs intact bilaterally and conjunctivae normal General Eye ED: Yes normal appearance of both eyes Neck no lymphadenopathy and supple General: Negative for tenderness Chest Wall palpation of chest normal Chest: Negative for tenderness Resp normal respiratory effort and normal air movement Effort and Inspection: symmetric chest movement; Negative for respiratory distress Cardio regular rate, regular rhythm and no murmurs Peripheral Pulses: pulses 2+ throughout GI normal to inspection, nondistended, normoactive bowel sounds and non-tender Palpation: Negative for guarding or rebound tenderness present Back/Spine no CVA tenderness and no thoracic nor lumbar tenderness Back/Spine Narrative: No midline thoracic or lumbar tenderness. No ecchymosis. Extremity normal to inspection and full ROM Extremity Narrative: Full range of motion x4 extremities. Negative logroll bilateral lower extremities. Pulses intact x4. General Extremety ED: Negative for edema or tenderness General Extremity: Negative for edema Neuro oriented x3 and no sensory deficits noted Sensorium / Orientation: awake and alert Skin no rashes or lesions noted and no wounds MDM MDM MDM Narrative Medical decision making narrative: Patient no focal deficits contusion right upper brow. Patient on anticoagulants. Trauma scans head and neck are negative. EKG sinus tachycardia. Reported she had blood pressure dipped down to the ED she is started on IV fluids. This was responding. She had dry mucosal membranes. Labs noted return of white count of 18.5. I ordered a chest x-ray reviewed by myself 1 view shows no acute process. Urine with cath and pending she reports decreased urine output. She however she does note new ZUHAIR creatinine 2.02 up from 0.5 last month. Potassium 3.2 sodium 132. With her leukocytosis cultures were added. She denies being on steroids or any recent IVs no foreign bodies placed. I discussed with hospitalist Dr. Payne for admission due to ZUHAIR. Potassium was replaced orally. Given Tylenol for her pain symptoms. Lab Data Attestation: I reviewed the patient's lab results. Labs: Laboratory Results - last 24 hr 08/05/21 08/05/21 08/05/21 16:20 16:20 16:20 WBC 18.5 H RBC 4.30 Hgb 11.2 L Hct 36.0 L MCV 83.7 MCH 26.0 L MCHC 31.1 L RDW Std Deviation 49.1 H RDW Coeff of Kaycee 16.1 H Plt Count 413 MPV 9.7 Immature Gran % (Auto) 0.800 Neut % (Auto) 77.0 H Lymph % (Auto) 12.9 L [place] % (Auto) 7.6 Eos % (Auto) 0.8 Baso % (Auto) 0.9 Absolute Neuts (auto) 14.2 H Absolute Lymphs (auto) 2.39 Nucleated RBC % 0 PT 15.4 H INR 1.3 APTT 27.8 Sodium 132 L Potassium 3.2 L Chloride 97 L Carbon Dioxide 25.0 Anion Gap 10 BUN 15 Creatinine 2.02 H Estim Creat Clear Calc 26.03 Est GFR (MDRD) Af Amer 33 L Est GFR (MDRD) Non-Af 27 L BUN/Creatinine Ratio 7.4 L Glucose 142 H Calcium 9.7 Urine Color Urine Clarity Urine pH Ur Specific [place] Urine Protein Urine Glucose (UA) Urine Ketones Urine Occult Blood Urine Nitrite Urine Bilirubin Urine Urobilinogen Ur Leukocyte Esterase Urine RBC Urine WBC Ur Squamous Epith Cells Urine Bacteria Urine Mucus 08/05/21 17:14 WBC RBC Hgb Hct MCV MCH MCHC RDW Std Deviation RDW Coeff of [place]ce[place] Plt Count MPV Immature Gran % (Auto) Neut % (Auto) Lymph % (Auto) [place] % (Auto) Eos % (Auto) Baso % (Auto) Absolute Neuts (auto) Absolute Lymphs (auto) Nucleated RBC % PT INR APTT Sodium Potassium Chloride Carbon Dioxide Anion Gap BUN Creatinine Estim Creat Clear Calc Est GFR (MDRD) Af Amer Est GFR (MDRD) Non-Af BUN/Creatinine Ratio Glucose Calcium Urine Color Yellow Urine Clarity Sl. Cloudy Urine pH 5.0 Ur Specific [place] 1.020 Urine Protein 30 H Urine Glucose (UA) Normal Urine Ketones 5 H Urine Occult Blood 10 H Urine Nitrite Negative Urine Bilirubin 3 H Urine Urobilinogen 1 H Ur Leukocyte Esterase 25 H Urine RBC 0 SEEN Urine WBC 0-5 SEEN Ur Squamous Epith Cells 0-5 SEEN Urine Bacteria 1+ Urine Mucus 0 SEEN Radiography Diagnostic Testing: Clinical Impression(s) from Imaging Studies Brain CT 08/05/21 15:54 IMPRESSION: Chronic involutional changes without evidence of acute intracranial or calvarial abnormality. No major interval change. Electronically Signed: Nathaniel Venegas DO at 17:01 EDT Reading [facility] and State[email or web address] Tel [phone], Service support , Cervical Spine CT 08/05/21 15:54 IMPRESSION: Degenerative changes of the cervical spine without acute fracture or subluxation. Note: MRI is more sensitive than CT in detecting cord injury, ligamentous injury and epidural hematoma. If there is continued clinical concern for any of these entities, MRI should be considered. Electronically Signed: Nathaniel Venegas DO at 17:04 EDT Reading Location ID and State: [address] [place] [address] Tel [phone], Service support , Chest X-Ray 08/05/21 17:20 IMPRESSION: Degenerative changes, as described above. No demonstrated acute cardiopulmonary process. No major interval change. Electronically Signed: Nathaniel Venegas DO at 17:57 EDT Reading Location ID and State: [email or web address] / [place] Tel [phone], Service support , EKG Initial EKG: Attestation: I personally reviewed and interpreted this EKG as follows: Comments: Sinus rate of 105, no ST changes. T wave flattening in lead III. Nonspecific. Discharge Plan Dx/Rx/DC Orders Clinical Impression: ZUHAIR (acute kidney injury), Nausea & vomiting, CHI (closed head injury), Contusion of face, Dizziness, Acute hypokalemia Disposition Disposition: Acute Care Hospital [facility] Discharge Date/Time: 08/05/21 17:55
[2021-08-05 16:53] LABS: Absolute Lymphocyte Count 2.39 X10^3/uL (0.83-4.51); Absolute Neutrophil Count 14.2 X10^3/uL (2.0-7.7); Basophil# 0.16 X10^3/uL; Basophil% 0.9 % (0-1); Eosinophil# 0.15 X10^3/uL; Eosinophils% 0.8 % (0-5); Hemoglobin 11.2 g/dL (12.0-15.0); Lymphocyte # 2.39 X10^3/ul (0.83-4.51); Lymphocyte % 12.9 % (19-41); Mean Corp Hgb Conc 31.1 g/dL (32-36); Mean Corpuscular Volume 83.7 fL (81-99); Mean Platelet Vol. 9.7 fl (6.2-12.0); Monocyte% 7.6 % (0-10); NRBC Flagged by Analyzer 0 % (0-5); Neutrophil # 14.22 X10^3/uL (2.7-7.7); Platelet Count 413 K/mm3 (150-450); RBC Distribution Width CV 16.1 % (11.6-14.6); RBC Distribution Width SD 49.1 fl (35.1-43.9); White Blood Count 18.5 K/mm3 (4.4-11.0)
[2021-08-05] MEDS: Albuterol 2.5 MG/3 ML VIAL.NEB. INHALATION ×2 (16:56→16:57)
[2021-08-05 16:58] LABS: International Normalized Ratio 1.3; Prothrombin Time (Protime)PT. 15.4 SECONDS (11.7-14.9)
[2021-08-05 16:59] LABS: Partial Thromboplast Time 27.8 Seconds (24.1-36.2)
[2021-08-05 17:09] LABS: Anion Gap 10 (5-15); BUN 15 mg/dL (7-18); BUN/Creat Ratio 7.4 RATIO (10-20); Calcium,Total 9.7 mg/dL (8.5-10.1); Chloride 97 mmol/L (98-107); Creatinine, Serum 2.02 mg/dL (0.55-1.02); EST Glomerular Filtration Rate 27 mL/min (>60); Est Glom Filt Rate - Afr Amer 33 mL/min (>60); Estimated Creatinine Clearance 26.03 ml/min; Glucose 142 mg/dL (74-106); Potassium 3.2 mmol/L (3.5-5.1); Sodium Level 132 mmol/L (136-145)
--- NOTE | 2021-08-05 17:20 | RAD_ITS ---
STUDY: X-RAY CHEST REASON FOR EXAM: Female, 55 years old. Dizziness and cough. TECHNIQUE: Single AP portable view of the chest. COMPARISON: 05/07/2021. FINDINGS: The lungs are clear and expanded. There is no demonstrated pleural abnormality. Normal size heart. Normal mediastinum and alden. Normal visualized pulmonary arteries. There is atherosclerotic calcification of the aortic arch with tortuosity. There are diffuse degenerative changes of the visualized thoracic spine. Normal visualized ribs, clavicles, and shoulders. There is no demonstrated abnormality of the visualized soft tissue structures of the upper abdomen. RAD/Chest 1 View (Portable) IMPRESSION: Degenerative changes, as described above. No demonstrated acute cardiopulmonary process. No major interval change. Electronically Signed: Nathaniel Venegas DO at 17:57 EDT ,
[2021-08-05 17:27] LABS: Mucous, Urine 0 SEEN /hpf (<or=2+); Red Blood Cells-Urine 0 SEEN /hpf (0-5)
[2021-08-05] MEDS: 0.9% Normal Saline 1,000 ML 150 ML IV ×3 (17:29→18:36)
[2021-08-05 17:32] LABS: Color, Urine Yellow (Yellow); Glucose, Dipstick Normal (Normal); Ketone-Dipstick 5 mg/dl (Negative); Leukocyte Esterase-Dipstick 25 /ul (Negative); Nitrite-Dipstick Negative (Negative); Occult Blood-Urine 10 /ul (Negative); Protein-Dipstick 30 mg/dl (Negative); Urine Clarity Sl. Cloudy (Clear); Urine Urobilinogen 1 mg/dl (Normal)
[2021-08-05] MEDS: Potassium Chloride Oral Tablet 20 MEQ 40 MEQ PO (17:33)
[2021-08-05] MEDS: Acetaminophen 500 MG Tablet 1000 MG PO (17:33)
[2021-08-05 17:36] LABS: Urine Bilirubin Dipstick 3 mg/dL (Negative)
[2021-08-05 17:38] LABS: Bacteria 1+ /hpf (None Seen); Squamous Epithelial Cells - UA 0-5 SEEN /hpf (5-10); White Blood Cells 0-5 SEEN /hpf (0-5)
--- NOTE | 2021-08-05 17:39 | HP.PCM.HOS_ITS ---
HPI - General General Date of Admission: 08/05/21 Date of Service: 08/05/21 Chief Complaint: Passed out HPI Narrative TALAT HAN, is a 55 F with multiple comorbidities including essential hypertension dyslipidemia diabetes mellitus type 2 recent admission for upper GI bleed for which patient was found to have an oozing gastric ulcer with a visible vessel underwent clipping. Procedure performed on 07/10/2021. Patient presented with a 3-day history of intractable nausea and vomiting. Denied any hematemesis. Patient did also complain of feeling lightheaded in view of above arranged for a visit to her primary care physician. She apparently became profoundly lightheaded and fell hitting her head whilst at the PCPs office was subsequently brought to the ED. Initial head CT obtained came back negative for any intracranial bleed. Patient was however found to have acute kidney injury subsequently admitted for further management [facility] Medical History Anemia Asthma Atherosclerotic heart disease of [place] coronary artery without angina pectoris Benign essential hypertension BiPAP (biphasic positive airway pressure) dependence Bleeding tendency Blood loss anemia CAD (coronary artery disease) Cardiac dysrhythmia Chest pain Chest pain at rest Chronic cough Chronic narcotic use Closed fracture of proximal end of fibula COPD (chronic obstructive pulmonary disease) Current use of insulin Delayed surgical wound healing Diabetes Dislocation of hip, right, closed Emphysema of lung Gastroesophageal reflux disease High cholesterol Hip osteoarthritis History of left heart catheterization (LHC) (~07/05/21) History of pulmonary embolism History of revision of total replacement of right hip joint History of stress test Hypertension Irregular heart beat Irritable bowel Morbid obesity Morbid obesity with BMI of 45.0-49.9, adult Myocardial infarct On home oxygen therapy RACHEL (obstructive sleep apnea) Pancreatitis Peptic ulcer Preoperative cardiovascular examination Presence of stent in coronary artery (~02/07/11) Pulmonary hypertension Schizoaffective disorder Schizophrenia Sleep apnea Smoker Spinal stenosis of lumbar region at multiple levels Stage 2 moderate COPD by GOLD classification Suspected COVID-19 virus infection Takotsubo cardiomyopathy Thyroid nodule Tobacco abuse Ulcer Vitamin D deficiency Home Medications atorvastatin 80 mg PO QHS 08/22/15 [History Last Taken 03/15/21] pregabalin 75 mg PO TID 03/08/18 [History Last Taken 03/15/21] risperidone 4 mg PO QHS 03/08/18 [History Last Taken 03/15/21] trazodone 200 mg PO QHS PRN 03/08/18 [History Last Taken 03/15/21] furosemide 20 mg PO DAILY 11/20/18 [History Last Taken 03/15/21] mirabegron 25 mg PO DAILY 11/20/18 [History Last Taken 03/15/21] apixaban 5 mg PO BID 05/02/19 [History Last Taken 07/01/21] buspirone 30 mg tablet 30 mg PO BID tab 06/27/19 [History Last Taken 07/05/21] tiotropium bromide 2.5 mcg/actuation mist for inhalation 2 puff INHALATION DAILY #4 g 09/30/19 [Rx Last Taken 07/05/21] clopidogrel 75 mg PO DAILY 07/31/20 [History Last Taken 07/01/21] Advair HFA 2 puff INHALATION BID 11/14/20 [History Last Taken 03/15/21] albuterol sulfate 2 puff IH Q4H PRN PRN 11/14/20 [History Last Taken Unknown] escitalopram oxalate 20 mg PO DAILY 11/14/20 [History Last Taken 07/05/21] fluticasone propionate 1 spray INTRANASAL BID 11/14/20 [History Last Taken 03/15/21] promethazine 25 mg PO BID PRN PRN 11/14/20 [History Last Taken Unknown] potassium chloride [K-Tab] 40 meq PO DAILY 01/13/21 [History Last Taken 03/15/21] amlodipine 10 mg PO DAILY 05/21/21 [History Last Taken 07/05/21] lisinopril 20 mg PO QHS 05/21/21 [History Last Taken Unknown] metoprolol succinate 50 mg PO DAILY 05/21/21 [History Last Taken 07/05/21] albuterol sulfate 2.5 mg INHALATION Q4H PRN #180 ml 05/25/21 [Rx Last Taken Unknown] hydrocodone-acetaminophen 1 tab PO Q4H PRN PRN 2 Days #10 tablet 05/26/21 [Rx L ast Taken Unknown] montelukast 10 mg tablet 10 mg PO DAILY 06/29/21 [History Last Taken 07/05/21] pantoprazole 40 mg PO BID 08/05/21 [History Last Taken 08/03/21] sucralfate 1 g PO Q6H 08/05/21 [History Last Taken 08/04/21] Allergy/AdvReac Type Severity Reaction Status Date / Time tramadol [From Ultram] Allergy Severe Blisters, Verified 08/05/21 15:41 itching amoxicillin Allergy Itching Verified 08/05/21 15:41 erythromycin base Allergy Unknown Verified 08/05/21 15:41 methadone Allergy Itching Verified 08/05/21 15:41 metolazone Allergy Unknown Verified 08/05/21 15:41 Penicillins Allergy Hives Verified 08/05/21 15:41 Sulfa (Sulfonamide Allergy Hives Verified 08/05/21 15:41 Antibiotics) clarithromycin [From Biaxin] AdvReac Nausea Verified 08/05/21 15:41 ibuprofen AdvReac 3 BLEEDING Verified 08/05/21 15:41 ULCERS morphine AdvReac HEADACHE Verified 08/05/21 15:41 oxycodone [From Percocet] AdvReac Itching Verified 08/05/21 15:41 Family History Mother Heart disease Cancer uterine Father Hypertension Arthritis Hyperlipemia Grandmother Breast cancer Heart disease Grandfather Heart disease Sister Hypertension Surgical History History of appendectomy History of carpal tunnel surgery of left wrist History of cholecystectomy History of gastric bypass History of gastric bypass History of right ankle surgery history of right hip surgery History of tonsillectomy Presence of coronary angioplasty implant and graft (~02/07/11) Social History household members: none Smoking Status: Current every day smoker tobacco type: cigarettes alcohol intake: never substance use type: does not use caffeine: Yes (occasional) what type of physical activity do you participate in: none ROS ROS Narrative GENERAL: denies fever, chills, night sweats, weight loss, anorexia HEENT: denies headache, sinus congestion, or drainage, dysphagia RESPIRATORY: denies cough, sputum production, shortness of breath, CARDIAC: denies chest pain, palpitations, orthopnea, PND GASTROINTESTINAL: denies abdominal pain, nausea, vomiting, melena, GENITOURINARY: denies dysuria, urgency, frequency, heamaturia EXTREMITY: denies swelling MUSCULOSKELETAL: denies current joint pain or tenderness NEUROLOGIC: denies focal numbness, weakness, tingling HEMATOLOGIC: denies easy bruising and/or hemorrhage INTEGUMENT: denies rashes PSYCHIATRIC: denies suicidal or homicidal ideation Vital Signs Vital Signs Vital Signs: 08/05/21 15:41 08/05/21 16:05 08/05/21 16:06 Temperature 96 F L Temperature Source Temporal Pulse Rate 57 L Respiratory Rate 18 Respiratory Effort Normal Respiratory Depth Normal Respiratory Pattern Normal Normal Blood Pressure 109/64 Blood Pressure Mean 79 Pulse Ox 97 Oxygen Delivery Method Room Air Room Air 08/05/21 16:58 08/05/21 17:29 08/05/21 17:37 Temperature 98.9 F Temperature Source Temporal Pulse Rate 98 99 Respiratory Rate 14 16 Respiratory Effort Respiratory Depth Respiratory Pattern Blood Pressure 106/69 106/69 Blood Pressure Mean 81 81 Pulse Ox 92 97 95 Oxygen Delivery Method Room Air Room Air Room Air Weight Weight: 101.605 kg Body Mass Index (BMI) 39.6 Physical Exam Narrative GENERAL: cooperative HEENT: Bruising right periorbital region EYES; Anicteric, Normal Conjunctiva NECK; supple, normal thyroid, RESPIRATORY: Diminished to auscultation CARDIOVASCULAR: Regular S1 S2, GI: soft, normoactive bowel sounds, : No Renal angle tenderness; EXTREMITIES: No edema, no clubbing, MUSCULOSKELETAL: no muscle wasting NEURO: Awake; no lateralizing signs. SKIN: No Rash PSYCH; Flat affect Results Lab / Micro Data Result Diagrams: 08/05/21 16:20 08/05/21 16:20 Labs: Laboratory Results - last 24 hr 08/05/21 16:20: WBC 18.5 H, RBC 4.30, Hgb 11.2 L, Hct 36.0 L, MCV 83.7, MCH 26.0 L, MCHC 31.1 L, RDW Std Deviation 49.1 H, RDW Coeff of [place] 16.1 H, Plt Count 413, MPV 9.7, Immature Gran % (Auto) 0.800, Neut % (Auto) 77.0 H, Lymph % (Auto) 12.9 L, [place] % (Auto) 7.6, Eos % (Auto) 0.8, Baso % (Auto) 0.9, Absolute Neuts (auto) 14.2 H, Absolute Lymphs (auto) 2.39, Nucleated RBC % 0 08/05/21 16:20: PT 15.4 H, INR 1.3, APTT 27.8 08/05/21 16:20: Sodium 132 L, Potassium 3.2 L, Chloride 97 L, Carbon Dioxide 25.0, Anion Gap 10, BUN 15, Creatinine 2.02 H, Estim Creat Clear Calc 26.03, Est GFR (MDRD) Af Amer 33 L, Est GFR (MDRD) Non-Af 27 L, BUN/Creatinine Ratio 7.4 L, Glucose 142 H, Calcium 9.7 08/05/21 17:14: Urine Color Yellow, Urine Clarity Sl. Cloudy, Urine pH 5.0, Ur Specific [place] 1.020, Urine Protein 30 H, Urine Glucose (UA) Normal, Urine K etones 5 H, Urine Occult Blood 10 H, Urine Nitrite Negative, Urine Bilirubin 3 H , Urine Urobilinogen 1 H, Ur Leukocyte Esterase 25 H, Urine RBC 0 SEEN, Urine WBC 0-5 SEEN, Ur Squamous Epith Cells 0-5 SEEN, Urine Bacteria 1+, Urine Mucus 0 SEEN Radiology Impression Brain CT 08/05/21 15:54 IMPRESSION: Chronic involutional changes without evidence of acute intracranial or calvarial abnormality. No major interval change. Electronically Signed: Nathaniel Venegas DO at 17:01 EDT Reading Location ID and State: [facility] / [place] Tel [phone], Service support , Cervical Spine CT 08/05/21 15:54 IMPRESSION: Degenerative changes of the cervical spine without acute fracture or subluxation. Note: MRI is more sensitive than CT in detecting cord injury, ligamentous injury and epidural hematoma. If there is continued clinical concern for any of these entities, MRI should be considered. Electronically Signed: Nathaniel Venegas DO at 17:04 EDT Reading Location ID and State: [facility] / [place] Tel [phone], Service support , Assessment & Plan Assessment/Plan (1) ZUHAIR (acute kidney injury): (2) CHI (closed head injury): (3) Dizziness: (4) Contusion of face: (5) Nausea & vomiting: PLAN: Patient is a 55-year-old lady admitted with syncopal episode found to be in acute kidney injury on admission 1. Syncopal episode ? Suspected to be secondary to orthostatic hypotension from dehydration admitted to monitored bed where patient is currently being resuscitated with IV fluids 2. Acute kidney injury ? This is secondary to dehydration patient did experience 2-day history of intractable nausea vomiting. Admitted to monitored bed resuscitated with IV fluid with subsequent monitoring of electrolytes ordered 3. Hypokalemia ? Possibly related to GI losses corrected per protocol 4. Closed head injury ? Following patient's fall CT of the head obtained was negative for acute intracranial pathology 5. Recent diagnosis of a gastric ulcer ? Patient is on PPI 6. Diabetes mellitus type II -patient's oral hypoglycemics held. Placed on long acting insulin, Accu-Cheks a.c. and at bedtime and covered with sliding scale insulin 7. Coronary artery disease ? With previous PCI currently on Plavix 8. Essential hypertension ? Patient antihypertensives held in view of her presentation monitoring with [place] vitals 9. GERD ? On PPI 10. Dyslipidemia -Patient is on statin therapy, continued at home dose 11. Previous history of VTE (PE) ? Patient is on apixaban did continue 12. Mild intermittent asthma ? Did continue patient home regimen including her bronchodilators 13. Obstructive sleep apnea ? Patient is on BiPAP at night 14. Class II obesity ? With BMI of 39.7 ? Weight loss advised 15. Schizoaffective disorder ? Continue with psychotropic medications 16. Depression with anxiety ? Discontinue home meds 18. DVT prophylaxis ? Patient is on apixaban no need for additional measures Advance planning; did discuss with the patient regarding advanced directives as well as CODE STATUS. Did explain the various scenarios involved ( FULL CODE, DNR CCA, DNR CCA with no intubation, and DNR CC and what each meant) patient elected to full code with CPR and intubation if needed. Order was placed. Time spent on discussion 18 minutes. Charges/Coding Visit Charges OBSV E&M: 95122 Initial observation care L3 Procedures Hospitalists Procedures: 03143 Advncd Care Plan 30 Min
--- NOTE | 2021-08-05 17:43 | NURSING ---
PCU OBS KITTOE ZUHAIR,, CLOSED HEAD INJURY, LEUKOCYTOSIS
[2021-08-05] MEDS: Fluticasone 0.05% 1 SPRAY NASAL.SRY NASAL (20:42)
[2021-08-05] MEDS: Acetaminophen 325 MG Tablet 650 MG PO (20:43)
[2021-08-05] MEDS: traZODone 100 MG Tablet 200 MG PO (20:43)
[2021-08-05] MEDS: RisperiDONE 2 MG Tablet 4 MG PO (20:44)
[2021-08-05] MEDS: Atorvastatin Calcium 80 MG Tablet PO (20:45)
[2021-08-05] MEDS: APIXABAN 5 MG TABLET PO (20:45)
[2021-08-05] MEDS: busPIRone 15 MG TABLET 30 MG PO (20:45)
[2021-08-05] MEDS: Sucralfate 1 GM Tablet PO (20:45)
[2021-08-05] MEDS: Pregabalin 75 MG Capsule PO (20:49)
[2021-08-05] MEDS: Pantoprazole Sodium 40 MG Tablet PO (20:50)
[2021-08-05 22:21] LABS: Bedside Glucose 146 mg/dL (74-106)
[2021-08-06] VITALS (10 sets, daily range): BP systolic 92–122; BP diastolic 51–67; PULSE 75–113; RESP 16–20; TEMP 36.8–36.9; O2SAT 94–96
[2021-08-06] MEDS: 0.9% Normal Saline 1,000 ML 150 ML IV ×2 (01:46→09:28)
[2021-08-06] MEDS: Acetaminophen 325 MG Tablet 650 MG PO ×2 (03:44→11:39)
[2021-08-06] MEDS: Sucralfate 1 GM Tablet PO ×2 (06:48→11:39)
[2021-08-06] MEDS: Pregabalin 75 MG Capsule PO (06:48)
[2021-08-06 06:51] LABS: Absolute Neutrophil Count 8.5 X10^3/uL (2.0-7.7); Basophil# 0.13 X10^3/uL; Basophil% 1.1 % (0-1); Eosinophil# 0.37 X10^3/uL; Hematocrit 32.6 % (37-47); Hemoglobin 10.2 g/dL (12.0-15.0); Lymphocyte % 16.2 % (19-41); Mean Corp Hgb Conc 31.3 g/dL (32-36); Mean Corpuscular Hgb 26.2 pg (27.0-32.0); Mean Corpuscular Volume 83.6 fL (81-99); Mean Platelet Vol. 9.6 fl (6.2-12.0); Monocyte# 1.24 X10^3/uL; Monocyte% 10.1 % (0-10); NRBC Flagged by Analyzer 0 % (0-5); Neutrophil # 8.51 X10^3/uL (2.7-7.7); Platelet Count 333 K/mm3 (150-450); RBC Distribution Width CV 16.2 % (11.6-14.6); RBC Distribution Width SD 49.1 fl (35.1-43.9); White Blood Count 12.3 K/mm3 (4.4-11.0)
[2021-08-06 07:05] LABS: Anion Gap 6 (5-15); BUN 15 mg/dL (7-18); BUN/Creat Ratio 15.4 RATIO (10-20); Calcium,Total 8.7 mg/dL (8.5-10.1); Chloride 107 mmol/L (98-107); Creatinine, Serum 0.97 mg/dL (0.55-1.02); EST Glomerular Filtration Rate 63 mL/min (>60); Est Glom Filt Rate - Afr Amer 76 mL/min (>60); Estimated Creatinine Clearance 54.21 ml/min; Glucose 82 mg/dL (74-106); Potassium 3.4 mmol/L (3.5-5.1); Sodium Level 136 mmol/L (136-145)
[2021-08-06 07:05] LABS: Bedside Glucose 98 mg/dL (74-106)
[2021-08-06] MEDS: Budesonide Respules 0.5 MG/2 ML AMPUL.NEB. INHALATION (07:39)
[2021-08-06] MEDS: Ipratropium/Albuterol Sulfate 3 ML AMPUL.NEB INHALATION ×2 (07:39→13:27)
[2021-08-06] MEDS: Fluticasone 0.05% 1 SPRAY NASAL.SRY NASAL (10:14)
[2021-08-06] MEDS: Escitalopram Oxalate 20 MG Tablet PO (10:15)
[2021-08-06] MEDS: busPIRone 15 MG TABLET 30 MG PO (10:15)
[2021-08-06] MEDS: Pantoprazole Sodium 40 MG Tablet PO (10:15)
[2021-08-06] MEDS: APIXABAN 5 MG TABLET PO (10:15)
[2021-08-06] MEDS: Mirabegron 25 MG TAB.ER.24H PO (10:15)
[2021-08-06] MEDS: Montelukast 10 MG Tablet PO (10:15)
[2021-08-06] MEDS: Clopidogrel Bisulfate 75 MG Tablet PO (10:15)
[2021-08-06] MEDS: Potassium Chloride Oral Tablet 20 MEQ 40 MEQ PO (10:15)
--- NOTE | 2021-08-06 11:05 | PCM.DC.SUM ---
Providers Date of Admission: 08/05/21 Primary Care Physician: Dr. Janel Taylor MD Reason For Visit: ZUHAIR Diagnosis Discharge Diagnosis (1) ZUHAIR (acute kidney injury): Status: Acute Code(s): N17.9 - Acute kidney failure, unspecified (2) CHI (closed head injury): Status: Acute Code(s): S09.90XA - Unspecified injury of head, initial encounter (3) Dizziness: Status: Acute Code(s): R42 - Dizziness and giddiness (4) Contusion of face: Status: Acute Code(s): S00.83XA - Contusion of other part of head, initial encounter (5) Nausea & vomiting: Status: Acute Code(s): R11.2 - Nausea with vomiting, unspecified Medications at Discharge Home Medications atorvastatin 80 mg PO QHS 08/22/15 pregabalin 75 mg PO TID 03/08/18 risperidone 4 mg PO QHS 03/08/18 trazodone 200 mg PO QHS PRN 03/08/18 mirabegron 25 mg PO DAILY 11/20/18 apixaban 5 mg PO BID 05/02/19 buspirone 30 mg tablet 30 mg PO BID tab 06/27/19 tiotropium bromide 2.5 mcg/actuation mist for inhalation 2 puff INHALATION DAILY #4 g 09/30/19 clopidogrel 75 mg PO DAILY 07/31/20 Advair HFA 2 puff INHALATION BID 11/14/20 albuterol sulfate 2 puff IH Q4H PRN PRN 11/14/20 escitalopram oxalate 20 mg PO DAILY 11/14/20 fluticasone propionate 1 spray INTRANASAL BID 11/14/20 promethazine 25 mg PO BID PRN PRN 11/14/20 potassium chloride [K-Tab] 40 meq PO DAILY 01/13/21 albuterol sulfate 2.5 mg INHALATION Q4H PRN #180 ml 05/25/21 hydrocodone-acetaminophen 1 tab PO Q4H PRN PRN 2 Days #10 tablet 05/26/21 montelukast 10 mg tablet 10 mg PO DAILY 06/29/21 pantoprazole 40 mg PO BID 08/05/21 sucralfate 1 g PO Q6H 08/05/21 metoprolol succinate 25 mg PO DAILY #60 tab 08/06/21 Hospital Course Summary of Care Provided Minutes Spent on Discharge: 35 Hospital Course: Patient is a 55-year-old lady admitted with syncopal episode found to be in acute kidney injury on admission 1. Syncopal episode ? Suspected to be secondary to orthostatic hypotension from dehydration admitted to monitored bed where patient is currently being resuscitated with IV fluids ?symptoms resolved with IV fluid resuscitation 2. Acute kidney injury ? This is secondary to dehydration patient did experience 2-day history of intractable nausea vomiting. Admitted to monitored bed resuscitated with IV fluid with subsequent monitoring of electrolytes ordered ? 08/06/2021. Kidney function back to baseline 3. Hypokalemia ? Possibly related to GI losses corrected per protocol 4. Closed head injury ? Following patient's fall CT of the head obtained was negative for acute intracranial pathology 5. Recent diagnosis of a gastric ulcer ? Patient is on PPI 6. Diabetes mellitus type II -patient's oral hypoglycemics held. Placed on long acting insulin, Accu-Cheks a.c. and at bedtime and covered with sliding scale insulin 7. Coronary artery disease ? With previous PCI currently on Plavix 8. Essential hypertension ? Patient antihypertensives held in view of her presentation monitoring with vitals Q shift 9. GERD ? On PPI 10. Dyslipidemia -Patient is on statin therapy, continued at home dose 11. Previous history of VTE (PE) ? Patient is on apixaban did continue 12. Mild intermittent asthma ? Did continue patient home regimen including her bronchodilators 13. Obstructive sleep apnea ? Patient is on BiPAP at night 14. Class II obesity ? With BMI of 39.7 ? Weight loss advised 15. Schizoaffective disorder ? Continue with psychotropic medications 16. Depression with anxiety ? Discontinue home meds 18. DVT prophylaxis ? Patient is on apixaban no need for additional measures Physical Exam Narrative GENERAL: cooperative HEENT: Bruising right periorbital region EYES; Anicteric, Normal Conjunctiva NECK; supple, normal thyroid, RESPIRATORY: Diminished to auscultation CARDIOVASCULAR: Regular S1 S2, GI: soft, normoactive bowel sounds, : No Renal angle tenderness; EXTREMITIES: No edema, no clubbing, MUSCULOSKELETAL: no muscle wasting NEURO: Awake; no lateralizing signs. SKIN: No Rash PSYCH; Flat affect Weight / BMI Weight Weight: 92.1 kg Body Mass Index (BMI) 35.9 ABG / Lab / Microbiology Data Result Diagrams: 08/06/21 06:35 08/06/21 06:35 Laboratory: Laboratory Results - last 24 hr 08/05/21 16:20: WBC 18.5 H, RBC 4.30, Hgb 11.2 L, Hct 36.0 L, MCV 83.7, MCH 26.0 L, MCHC 31.1 L, RDW Std Deviation 49.1 H, RDW Coeff of [place] 16.1 H, Plt Count 413, MPV 9.7, Immature Gran % (Auto) 0.800, Neut % (Auto) 77.0 H, Lymph % (Auto) 12.9 L, [place] % (Auto) 7.6, Eos % (Auto) 0.8, Baso % (Auto) 0.9, Absolute Neuts (auto) 14.2 H, Absolute Lymphs (auto) 2.39, Nucleated RBC % 0 08/05/21 16:20: PT 15.4 H, INR 1.3, APTT 27.8 08/05/21 16:20: Sodium 132 L, Potassium 3.2 L, Chloride 97 L, Carbon Dioxide 25.0, Anion Gap 10, BUN 15, Creatinine 2.02 H, Estim Creat Clear Calc 26.03, Est GFR (MDRD) Af Amer 33 L, Est GFR (MDRD) Non-Af 27 L, BUN/Creatinine Ratio 7.4 L, Glucose 142 H, Calcium 9.7 08/05/21 17:14: Urine Color Yellow, Urine Clarity Sl. Cloudy, Urine pH 5.0, Ur Specific [place] 1.020, Urine Protein 30 H, Urine Glucose (UA) Normal, Urine Ketones 5 H, Urine Occult Blood 10 H, Urine Nitrite Negative, Urine Bilirubin 3 H, Urine Urobilinogen 1 H, Ur Leukocyte Esterase 25 H, Urine RBC 0 SEEN, Urine WBC 0-5 SEEN, Ur Squamous Epith Cells 0-5 SEEN, Urine Bacteria 1+, Urine Mucus 0 SEEN 08/05/21 20:39: POC Glucose 146 H 08/06/21 06:35: WBC 12.3 H, RBC 3.90 L, Hgb 10.2 L, Hct 32.6 L, MCV 83.6, MCH 26.2 L, MCHC 31.3 L, RDW Std Deviation 49.1 H, RDW Coeff of [place] 16.2 H, Plt Count 333, MPV 9.6, Immature Gran % (Auto) 0.600, Neut % (Auto) 69.0, Lymph % (Auto) 16.2 L, [place] % (Auto) 10.1 H, Eos % (Auto) 3.0, Baso % (Auto) 1.1 H, Absolute Neuts (auto) 8.5 H, Absolute Lymphs (auto) 2.00, Nucleated RBC % 0 08/06/21 06:35: Sodium 136, Potassium 3.4 L, Chloride 107, Carbon Dioxide 23.0, Anion Gap 6, BUN 15, Creatinine 0.97, Estim Creat Clear Calc 54.21, Est GFR (MDRD) Af Amer 76, Est GFR (MDRD) Non-Af 63, BUN/Creatinine Ratio 15.4, Glucose 82, Calcium 8.7 08/06/21 06:47: POC Glucose 98 Radiography Diagnostic Testing: Radiology Impression Brain CT 08/05/21 15:54 IMPRESSION: Chronic involutional changes without evidence of acute intracranial or calvarial abnormality. No major interval change. Electronically Signed: Nathaniel Venegas DO at 17:01 EDT Reading Location ID and State: [facility] / [facility] Tel [phone], Service support , Cervical Spine CT 08/05/21 15:54 IMPRESSION: Degenerative changes of the cervical spine without acute fracture or subluxation. Note: MRI is more sensitive than CT in detecting cord injury, ligamentous injury and epidural hematoma. If there is continued clinical concern for any of these entities, MRI should be considered. Electronically Signed: Nathaniel Venegas DO at 17:04 EDT Reading Location ID and State: [facility] / [facility] Tel [phone], Service support , Chest X-Ray 08/05/21 17:20 IMPRESSION: Degenerative changes, as described above. No demonstrated acute cardiopulmonary process. No major interval change. Electronically Signed: Nathaniel Venegas DO at 17:57 EDT Reading Location ID and State: [facility] / [facility] Tel [phone], Service support , D/C Instructions Discharge Diet: No restrictions Discharge Activity: Return to Normal Activity Call your doctor if you observe: Fever of 101 or Higher, Shortness of breath, Fainting spells and Chest pain Meaningful Use Info Meaningful Use Diagnoses (Choose all that apply): None applicable Discharge Plan Admission Admit Date/Time: 08/05/21 17:32 Attending Provider: Rudy Payne Primary Care Provider: Janel Taylor Discharge Orders/Prescriptions Prescriptions: New metoprolol succinate 25 mg tablet extended release 24 hr 25 mg PO DAILY Qty: 60 RF: 0 Continued albuterol sulfate 2.5 mg /3 mL (0.083 %) solution for nebulization 2.5 mg inhalation Q4H PRN (Reason: Sob &/Or Wheezing) Qty: 180 RF: 3 montelukast 10 mg tablet 10 mg PO DAILY RF: 0 atorvastatin 80 MG tablet 80 mg PO QHS RF: 0 risperidone 4 mg tablet 4 mg PO QHS RF: 0 trazodone 100 MG tablet 200 mg PO QHS PRN (Reason: Insomnia) RF: 0 pregabalin 75 MG capsule 75 mg PO TID RF: 0 buspirone 30 mg tablet 30 mg PO BID RF: 0 mirabegron 25 MG tablet extended release 24 hr 25 mg PO DAILY RF: 0 apixaban 5 MG tablet 5 mg PO BID RF: 0 clopidogrel 75 mg tablet 75 mg PO DAILY RF: 0 promethazine 25 mg Tablet 25 mg PO BID PRN PRN (Reason: Nausea) RF: 0 escitalopram oxalate 20 mg Tablet 20 mg PO DAILY RF: 0 Advair HFA 230-21 mcg/actuation Hfa Aerosol Inhaler 2 puff INHALATION BID RF: 0 albuterol sulfate 1 PUFF HFA aerosol inhaler 2 puff IH Q4H PRN PRN (Reason: SOB &/or Wheezing ) RF: 0 fluticasone propionate 50 mcg/actuation [place],Suspension 1 spray INTRANASAL BID RF: 0 potassium chloride [K-Tab] 20 mEq tablet extended release 40 meq PO DAILY RF: 0 hydrocodone-acetaminophen 1 TABLET tablet 1 tab PO Q4H PRN PRN (Reason: Pain) 2 Days Qty: 10 RF: 0 sucralfate 1 gram tablet 1 g PO Q6H RF: 0 pantoprazole 40 mg tablet,delayed release (DR/EC) 40 mg PO BID RF: 0 tiotropium bromide 2.5 mcg/actuation mist 2 puff INHALATION DAILY Qty: 4 RF: 3 Discontinued furosemide 20 MG tablet 20 mg PO DAILY RF: 0 Hold Instructions: Resume on 01/22/21. metoprolol succinate 50 mg tablet extended release 24 hr 50 mg PO DAILY RF: 0 amlodipine 10 mg tablet 10 mg PO DAILY RF: 0 lisinopril 20 MG tablet 20 mg PO QHS RF: 0 Referrals / Follow Up: Janel Taylor MD [Primary Care Provider] - In 1 Week Disposition Disposition (needs filled in before D/C Order can be placed): Home, Self Care Charges/Coding Visit Charges OBSV E&M: 50035 Observation care discharge
[2021-08-06] MEDS: Insulin Lispro 100 UNIT/ML INSULN.PEN SC (11:42)
[2021-08-06 11:50] LABS: Bedside Glucose 161 mg/dL (74-106)
== END 2021-08-06 14:19 | disposition home or self-care (01) ==
LOC: ED 17:36 → PCU 17:49
PROVIDERS: Admitting Provider Internal Medicine; Emergency Provider Emergency Medicine; PCP Family Medicine; Visit Provider Internal Medicine
DX: E86.0 Dehydration (principal); F25.9 Schizoaffective disorder, unspecified; N17.9 Acute kidney failure, unspecified; J43.9 Emphysema, unspecified; E66.01 Morbid (severe) obesity due to excess calories; E11.9 Type 2 diabetes mellitus without complications; Z79.01 Long term (current) use of anticoagulants; I25.10 Atherosclerotic heart disease of native coronary artery without angina pectoris; I10 Essential (primary) hypertension; Y93.9 Activity, unspecified; S00.83XA Contusion of other part of head, initial encounter; G47.33 Obstructive sleep apnea (adult) (pediatric); F41.8 Other specified anxiety disorders; Z79.02 Long term (current) use of antithrombotics/antiplatelets; E78.5 Hyperlipidemia, unspecified; Z68.39 Body mass index [BMI] 39.0-39.9, adult; Z79.51 Long term (current) use of inhaled steroids; K21.9 Gastro-esophageal reflux disease without esophagitis; E87.6 Hypokalemia; R55 Syncope and collapse; Z79.899 Other long term (current) drug therapy; Y99.9 Unspecified external cause status; W19.XXXA Unspecified fall, initial encounter; Y92.531 Health care provider office as the place of occurrence of the external cause; Z99.81 Dependence on supplemental oxygen; F17.210 Nicotine dependence, cigarettes, uncomplicated
CPT/HCPCS: 36415; 70450; 71045; 72125; 80048; 81001; 82962; 85025; 85610; 85730; 87040; 87086; 87088; 93005; 94640; 96360; 96361; 99218; 99285; 99406; J7030; G0378

== ENCOUNTER 2021-09-02 15:42 | Emergency (ER) | payer MEDICARE, MEDICAID, SELFPAY ==
[2021-09-02 15:43] VITALS: BP 118/75; PULSE 98; RESP 18; TEMP 36.1; O2SAT 99; BMI 35.4
[2021-09-02] MEDS: Morphine 4 MG/ML Syringe IM (16:27)
--- NOTE | 2021-09-02 16:58 | ED.VIS.LOWEX ---
HPI History of Present Illness Chief Complaint: Lower Extremity Injury Narrative Narrative: 56-year-old female presenting with left ankle pain. She states has had this for years. She states it is chronically been painful but is getting worse over time. She states that she is supposed to see Dr. Schwartz for surgery on her ankle in November. She states this is the closest appointment she can get. She also has a referral for pain management in September. She states that she is having trouble going long distances while walking. She does not report any new trauma. She states recently had an x-ray of her ankle and it shows that she is [id number]. Patient states she receives Roberts from Dr. Yung for chronic right hip pain after right hip surgery. She also states that her primary care doctor will not write her any pain medication. [facility] Medical History Anemia Asthma Atherosclerotic heart disease of [place] coronary artery without angina pectoris Benign essential hypertension BiPAP (biphasic positive airway pressure) dependence Bleeding tendency Blood loss anemia CAD (coronary artery disease) Cardiac dysrhythmia Chest pain Chest pain at rest Chronic cough Chronic narcotic use Closed fracture of proximal end of fibula COPD (chronic obstructive pulmonary disease) Current use of insulin Delayed surgical wound healing Diabetes Dislocation of hip, right, closed Emphysema of lung Gastroesophageal reflux disease High cholesterol Hip osteoarthritis History of left heart catheterization (LHC) (~07/05/21) History of pulmonary embolism History of revision of total replacement of right hip joint History of stress test Hypertension Irregular heart beat Irritable bowel Morbid obesity Morbid obesity with BMI of 45.0-49.9, adult Myocardial infarct On home oxygen therapy RACHEL (obstructive sleep apnea) Pancreatitis Peptic ulcer Preoperative cardiovascular examination Presence of stent in coronary artery (~02/07/11) Pulmonary hypertension Schizoaffective disorder Schizophrenia Sleep apnea Smoker Spinal stenosis of lumbar region at multiple levels Stage 2 moderate COPD by GOLD classification Suspected COVID-19 virus infection Takotsubo cardiomyopathy Thyroid nodule Tobacco abuse Ulcer Vitamin D deficiency Home Medications atorvastatin 80 mg tablet 80 mg PO QHS cholesterol 08/22/15 [History Last Taken 08/03/21] pregabalin 75 mg capsule 75 mg PO TID PAIN 03/08/18 [History Last Taken 08/03/21] risperidone 4 mg tablet 4 mg PO QHS sleep 03/08/18 [History Last Taken 08/04/21] trazodone 100 mg tablet 200 mg PO QHS PRN Insomnia 03/08/18 [History Last Taken 08/04/21] mirabegron 25 mg tablet,extended release 24 hr 25 mg PO DAILY bladder 11/20/18 [History Last Taken 08/03/21] apixaban 5 mg tablet 5 mg PO BID blood thinner 05/02/19 [History Last Taken 08/03/21] buspirone 30 mg tablet 30 mg PO BID anxiety 06/27/19 [History Last Taken 08/03/21] tiotropium bromide 2.5 mcg/actuation mist for inhalation 2 puff inhalation DAILY sob #4 grams 09/30/19 [Rx Last Taken 08/05/21] clopidogrel 75 mg tablet 75 mg PO DAILY blood thinner 07/31/20 [History Last Taken 08/03/21] albuterol sulfate 90 mcg/actuation aerosol inhaler 2 puff IH Q4H PRN PRN SOB &/or Wheezing 11/14/20 [History Last Taken 08/05/21] escitalopram oxalate 20 mg tablet 20 mg PO DAILY mental health 11/14/20 [History Last Taken 08/03/21] fluticasone propionate 230 mcg-salmeterol 21 mcg/actuation HFA inhaler (Advair HFA) 2 puff inhalation BID SOB 11/14/20 [History Last Taken 08/05/21] fluticasone propionate 50 mcg/actuation nasal spray,suspension 1 spray intranasal BID allergies 11/14/20 [History Last Taken 08/03/21] promethazine 25 mg tablet 25 mg PO BID PRN PRN Nausea 11/14/20 [History Last Taken 08/04/21] potassium chloride 20 mEq tablet,extended release (K-Tab) 40 meq PO DAILY potassium replacement 01/13/21 [History Last Taken 08/05/21] albuterol sulfate 2.5 mg (3 mL) inhalation Q4H PRN Sob &/Or Wheezing #180 mL 05/25/21 [Rx Last Taken Unknown] hydrocodone-acetaminophen 5-325mg 5mg-325mg 1 tab PO Q4H PRN PRN Pain 2 days #10 TABLETS 05/26/21 [Rx Last Taken 08/05/21] montelukast 10 mg tablet 10 mg PO DAILY pain 06/29/21 [History Last Taken 08/03/21] pantoprazole 40 mg tablet,delayed release 40 mg PO BID gerd 08/05/21 [History Last Taken 08/03/21] sucralfate 1 gram tablet 1 g PO Q6H stomach 08/05/21 [History Last Taken 08/04/21] metoprolol succinate 25 mg tablet,extended release 24 hr 25 mg PO DAILY #60 tabs 08/06/21 [Rx Last Taken Unknown] prednisone 10 mg tablet 10 mg PO QDAY #30 tabs 08/26/21 [Rx Last Taken Unknown] Allergy/AdvReac Type Severity Reaction Status Date / Time tramadol [From Ultram] Allergy Severe Blisters, Verified 09/02/21 15:43 itching amoxicillin Allergy Itching Verified 09/02/21 15:43 erythromycin base Allergy Unknown Verified 09/02/21 15:43 methadone Allergy Itching Verified 09/02/21 15:43 metolazone Allergy Unknown Verified 09/02/21 15:43 Penicillins Allergy Hives Verified 09/02/21 15:43 Sulfa (Sulfonamide Allergy Hives Verified 09/02/21 15:43 Antibiotics) clarithromycin [From Biaxin] AdvReac Nausea Verified 09/02/21 15:43 ibuprofen AdvReac 3 BLEEDING Verified 09/02/21 15:43 ULCERS morphine AdvReac HEADACHE Verified 09/02/21 15:43 oxycodone [From Percocet] AdvReac Itching Verified 09/02/21 15:43 Family History Mother Heart disease Cancer uterine Father Hypertension Arthritis Hyperlipemia Grandmother Breast cancer Heart disease Grandfather Heart disease Sister Hypertension Surgical History History of appendectomy History of carpal tunnel surgery of left wrist History of cholecystectomy History of gastric bypass History of gastric bypass History of right ankle surgery history of right hip surgery History of tonsillectomy Presence of coronary angioplasty implant and graft (~02/07/11) Social History household members: none Smoking Status: Current every day smoker tobacco type: cigarettes alcohol intake: never substance use type: does not use caffeine: Yes (occasional) what type of physical activity do you participate in: none EXAM Physical Exam Const Vital Signs: 09/02/21 15:43 Temperature 97.0 F L Temperature Source Temporal Pulse Rate 98 Respiratory Rate 18 Blood Pressure 118/75 Blood Pressure Mean 89 Pulse Ox 99 Oxygen Delivery Method Room Air Positive well nourished General Appearance ED: NAD HEENT Reports moist mucous membranes Eyes PERRL Chest Wall inspection of chest normal and palpation of chest normal Resp normal respiratory effort and no retractions Cardio regular rate and regular rhythm Extremity Extremity Narrative: Left ankle: Tenderness to palpation of the left ankle without swelling or deformity. Left foot: Pedal pulses 2+. No rashes or abrasions. Foot is warm and dry. Brisk cap refill to all 5 toes. Sensation intact. Neuro oriented x3 and CN's II-XII intact bilaterally Sensorium / Orientation: alert, oriented to person, oriented to place and oriented to time Motor Exam: strength 5/5 throughout Psych mental status grossly normal Skin no wounds Lesions: no lesions MDM MDM MDM Narrative Medical decision making narrative: Patient presenting with left ankle pain which is chronic. She states that Dr. Yung gives her Roberts for her hip pain and her primary care physician will give her anything however for pain. I did ask her if she wants to be admitted for placement given her disability and inability to get around for long distances and she states that she does not. Review her OAR[facility] report shows that she received 28 Roberts 5/3/[address] Yung's office on the . Her ankle exam is unremarkable. She does not want an x-ray. She does not want to be placed I offered her a one-time dose of medication here but counseled her that we cannot manage her chronic pain and that she has an open prescription for narcotics currently. I recommended that she follow-up with pain management. Impression: 1. Chronic ankle pain Lab Data Attestation: I reviewed the patient's lab results. Discharge Plan Triage Chief Complaint: Lower Extremity Injury ED Provider: Олег Champion Dx/Rx/DC Orders Instructions: Managing Chronic Pain Prescriptions: No Action albuterol sulfate 2.5 mg /3 mL (0.083 %) solution for nebulization 2.5 mg inhalation Q4H PRN (Reason: Sob &/Or Wheezing) Qty: 180 3RF montelukast 10 mg tablet 10 mg PO DAILY atorvastatin 80 MG tablet 80 mg PO QHS Label Comments: cholesterol risperidone 4 mg tablet 4 mg PO QHS Label Comments: Take 1 tablet by mouth at bedtime trazodone 100 MG tablet 200 mg PO QHS PRN (Reason: Insomnia) pregabalin 75 MG capsule 75 mg PO TID buspirone 30 mg tablet 30 mg PO BID mirabegron 25 MG tablet extended release 24 hr 25 mg PO DAILY apixaban 5 MG tablet 5 mg PO BID Rx Instructions: clopidogrel 75 mg tablet 75 mg PO DAILY promethazine 25 mg Tablet 25 mg PO BID PRN PRN (Reason: Nausea) escitalopram oxalate 20 mg Tablet 20 mg PO DAILY Advair HFA 230-21 mcg/actuation Hfa Aerosol Inhaler 2 puff INHALATION BID albuterol sulfate 1 PUFF HFA aerosol inhaler 2 puff IH Q4H PRN PRN (Reason: SOB &/or Wheezing ) fluticasone propionate 50 mcg/actuation [place],Suspension 1 spray INTRANASAL BID potassium chloride [K-Tab] 20 mEq tablet extended release 40 meq PO DAILY hydrocodone-acetaminophen 1 TABLET tablet 1 tab PO Q4H PRN PRN (Reason: Pain) 2 Days Qty: 10 0RF sucralfate 1 gram tablet 1 g PO Q6H pantoprazole 40 mg tablet,delayed release (DR/EC) 40 mg PO BID metoprolol succinate 25 mg tablet extended release 24 hr 25 mg PO DAILY Qty: 60 0RF tiotropium bromide 2.5 mcg/actuation mist 2 puff INHALATION DAILY Qty: 4 3RF prednisone 10 mg tablet 10 mg PO QDAY Qty: 30 0RF Rx Instructions: take 4 tabs for three days, then 3 tabs for three days, then 2 tabs for three days, then 1 tab for 3 days Primary Care Provider: Janel Taylor Referrals: Janel Taylor MD [Primary Care Provider] - Disposition Disposition: Home, Self Care
== END 2021-09-02 17:22 | disposition home or self-care (01) ==
LOC: ED 17:21
PROVIDERS: Emergency Provider Student in an Organized Health Care Education/Training Program; PCP Family Medicine; Visit Provider Student in an Organized Health Care Education/Training Program
DX: M25.572 Pain in left ankle and joints of left foot (principal); F25.9 Schizoaffective disorder, unspecified; J43.9 Emphysema, unspecified; E66.01 Morbid (severe) obesity due to excess calories; Z68.42 Body mass index [BMI] 45.0-49.9, adult; E11.9 Type 2 diabetes mellitus without complications; M25.551 Pain in right hip; G89.29 Other chronic pain; I25.10 Atherosclerotic heart disease of native coronary artery without angina pectoris; I10 Essential (primary) hypertension; E78.00 Pure hypercholesterolemia, unspecified; G47.33 Obstructive sleep apnea (adult) (pediatric); F17.210 Nicotine dependence, cigarettes, uncomplicated; Z79.01 Long term (current) use of anticoagulants; Z79.02 Long term (current) use of antithrombotics/antiplatelets; Z99.81 Dependence on supplemental oxygen; I25.2 Old myocardial infarction; Z95.5 Presence of coronary angioplasty implant and graft; Z96.641 Presence of right artificial hip joint; Z98.84 Bariatric surgery status
CPT/HCPCS: 96372; 99284

== ENCOUNTER 2021-09-11 17:42 | Emergency (ER) | payer MEDICARE, MEDICAID, SELFPAY ==
[2021-09-11 17:43] VITALS: BP 91/60; PULSE 71; RESP 16; TEMP 37.3; O2SAT 97; BMI 36.6
--- NOTE | 2021-09-11 17:57 | EKG12_ITS ---
Test Reason : Blood Pressure : / mmHG Vent. Rate : 067 BPM Atrial Rate : 067 BPM P-R Int : 150 ms QRS Dur : 082 ms QT Int : 438 ms P-R-T Axes : 031 006 033 degrees QTc Int : 462 ms Normal sinus rhythm Normal ECG Confirmed by MARYAM TAFOYA, JAZZMINE ([id number]), editor index MARTHA SCOTT ([id number]) on 09/14/2021 9:01:16 AM Referred By: Confirmed By:JAZZMINE FRANCISCO MD
--- NOTE | 2021-09-11 17:58 | EX.ED.DYSGE1 ---
HPI History of Present Illness Chief Complaint: Lower Extremity Injury Detail of Chief Complaint: Acute on chronic left ankle pain. Informant: patient Onset/Context/Timing Onset: Today Context: Gradual Onset Timing: Continuous Current Severity: Moderate Maximum Severity: Moderate Narrative Narrative: 56-year-old female extensive past medical history of diabetes, hypertension, COPD, CAD, pancreatitis and schizophrenia. Admitted 4 to 5 weeks ago for lower GI bleed. She is currently on Eliquis and Plavix. Presents today complaining of acute on chronic left ankle pain. 2 years ago she fell and fractured her left ankle and needed surgery to repair it. States due to chronic pain and arthritis are going to do a fusion at [facility] in November by Dr. Schwartz. She denies any new injuries. Also states today she is having trouble focusing. She denies any fever. She denies any headache, chest pain or abdominal pain. She denies any melena. Prior similar symptoms: Yes Recent Illness/Hospitalization: Yes PFSH PFSH Medical History Anemia Asthma Atherosclerotic heart disease of [place] coronary artery without angina pectoris Benign essential hypertension BiPAP (biphasic positive airway pressure) dependence Bleeding tendency Blood loss anemia CAD (coronary artery disease) Cardiac dysrhythmia Chest pain Chest pain at rest Chronic cough Chronic narcotic use Closed fracture of proximal end of fibula COPD (chronic obstructive pulmonary disease) Current use of insulin Delayed surgical wound healing Diabetes Dislocation of hip, right, closed Emphysema of lung Gastroesophageal reflux disease High cholesterol Hip osteoarthritis History of left heart catheterization (LHC) (~07/05/21) History of pulmonary embolism History of revision of total replacement of right hip joint History of stress test Hypertension Irregular heart beat Irritable bowel Morbid obesity Morbid obesity with BMI of 45.0-49.9, adult Myocardial infarct On home oxygen therapy RACHEL (obstructive sleep apnea) Pancreatitis Peptic ulcer Preoperative cardiovascular examination Presence of stent in coronary artery (~02/07/11) Pulmonary hypertension Schizoaffective disorder Schizophrenia Sleep apnea Smoker Spinal stenosis of lumbar region at multiple levels Stage 2 moderate COPD by GOLD classification Suspected COVID-19 virus infection Takotsubo cardiomyopathy Thyroid nodule Tobacco abuse Ulcer Vitamin D deficiency Home Medications atorvastatin 80 mg tablet 80 mg PO QHS cholesterol 08/22/15 [History Last Taken 08/03/21] pregabalin 75 mg capsule 75 mg PO TID PAIN 03/08/18 [History Last Taken 08/03/21] risperidone 4 mg tablet 4 mg PO QHS sleep 03/08/18 [History Last Taken 08/04/21] trazodone 100 mg tablet 200 mg PO QHS PRN Insomnia 03/08/18 [History Last Taken 08/04/21] mirabegron 25 mg tablet,extended release 24 hr 25 mg PO DAILY bladder 11/20/18 [History Last Taken 08/03/21] apixaban 5 mg tablet 5 mg PO BID blood thinner 05/02/19 [History Last Taken 08/03/21] buspirone 30 mg tablet 30 mg PO BID anxiety 06/27/19 [History Last Taken 08/03/21] tiotropium bromide 2.5 mcg/actuation mist for inhalation 2 puff inhalation DAILY sob #4 grams 09/30/19 [Rx Last Taken 08/05/21] clopidogrel 75 mg tablet 75 mg PO DAILY blood thinner 07/31/20 [History Last Taken 08/03/21] albuterol sulfate 90 mcg/actuation aerosol inhaler 2 puff IH Q4H PRN PRN SOB &/or Wheezing 11/14/20 [History Last Taken 08/05/21] escitalopram oxalate 20 mg tablet 20 mg PO DAILY mental health 11/14/20 [History Last Taken 08/03/21] fluticasone propionate 230 mcg-salmeterol 21 mcg/actuation HFA inhaler (Advair HFA) 2 puff inhalation BID SOB 11/14/20 [History Last Taken 08/05/21] fluticasone propionate 50 mcg/actuation nasal spray,suspension 1 spray intranasal BID allergies 11/14/20 [History Last Taken 08/03/21] promethazine 25 mg tablet 25 mg PO BID PRN PRN Nausea 11/14/20 [History Last Taken 08/04/21] potassium chloride 20 mEq tablet,extended release (K-Tab) 40 meq PO DAILY potassium replacement 01/13/21 [History Last Taken 08/05/21] albuterol sulfate 2.5 mg (3 mL) inhalation Q4H PRN Sob &/Or Wheezing #180 mL 05/25/21 [Rx Last Taken Unknown] hydrocodone-acetaminophen 5-325mg 5mg-325mg 1 tab PO Q4H PRN PRN Pain 2 days #10 TABLETS 05/26/21 [Rx Last Taken 08/05/21] montelukast 10 mg tablet 10 mg PO DAILY pain 06/29/21 [History Last Taken 08/03/21] pantoprazole 40 mg tablet,delayed release 40 mg PO BID gerd 08/05/21 [History Last Taken 08/03/21] sucralfate 1 gram tablet 1 g PO Q6H stomach 08/05/21 [History Last Taken 08/04/21] metoprolol succinate 25 mg tablet,extended release 24 hr 25 mg PO DAILY #60 tabs 08/06/21 [Rx Last Taken Unknown] prednisone 10 mg tablet 10 mg PO QDAY #30 tabs 08/26/21 [Rx Last Taken Unknown] Allergy/AdvReac Type Severity Reaction Status Date / Time tramadol [From Ultram] Allergy Severe Blisters, Verified 09/02/21 15:43 itching amoxicillin Allergy Itching Verified 09/02/21 15:43 erythromycin base Allergy Unknown Verified 09/02/21 15:43 methadone Allergy Itching Verified 09/02/21 15:43 metolazone Allergy Unknown Verified 09/02/21 15:43 Penicillins Allergy Hives Verified 09/02/21 15:43 Sulfa (Sulfonamide Allergy Hives Verified 09/02/21 15:43 Antibiotics) clarithromycin [From Biaxin] AdvReac Nausea Verified 09/02/21 15:43 ibuprofen AdvReac 3 BLEEDING Verified 09/02/21 15:43 ULCERS morphine AdvReac HEADACHE Verified 09/02/21 15:43 oxycodone [From Percocet] AdvReac Itching Verified 09/02/21 15:43 Family History Mother Heart disease Cancer uterine Father Hypertension Arthritis Hyperlipemia Grandmother Breast cancer Heart disease Grandfather Heart disease Sister Hypertension Surgical History History of appendectomy History of carpal tunnel surgery of left wrist History of cholecystectomy History of gastric bypass History of gastric bypass History of right ankle surgery history of right hip surgery History of tonsillectomy Presence of coronary angioplasty implant and graft (~02/07/11) Social History household members: none Smoking Status: Current every day smoker tobacco type: cigarettes alcohol intake: never substance use type: does not use caffeine: Yes (occasional) what type of physical activity do you participate in: none ROS ROS ED ROS Narrative Denies recent illness. Review of Systems ROS Unobtainable: Denies due to encephalopathy Constitutional Constitutional ED: Denies chills Eyes Eyes: Denies blurry vision ENT ENT ED: Denies ear pain Cardiovascular Cardiovascular: Denies chest pain Respiratory/Chest Respiratory/Chest: Denies cough Gastrointestinal Gastrointestinal: Denies abdominal pain, constipation, diarrhea, melena, nausea or vomiting Genitourinary Genitourinary ED: Denies dysuria Musculoskeletal Musculoskeletal: Denies arthralgias Integumentary Denies abscess Neurologic Neurologic: Denies headache(s) Psychiatric Psychiatric: Denies anxiety Endocrine Endocrinology: Denies cold intolerance Hematologic/Lymphatic Hematologic/Lymphatic: Denies systems reviewed and no addt'l complaints, except as documented Allergic/Immunologic Allergic/Immunologic ED: Denies mouth swelling EXAM Physical Exam Narrative Exam Narrative: 50-year-old female no acute distress vital signs stable except blood pressure is only 91/60. Pulse ox 97% on room air no signs hypoxia. She is in no distress. She tolerated pressure well. She is sitting upright in bed answering questions and following commands. She does not look septic or toxic. She does not look dehydrated. H EENT exam unremarkable. Moist with membranes. Neck nontender no JVD. No lymphadenopathy. Lungs clear to auscultation bilaterally. Heart regular rhythm rate about 70 no murmur. Chest were nontender. Abdomen soft nontender. Moving all 4 extremities. The ankle is not red. It does not look infected. She has limited range of motion of left ankle from prior surgery, fracture and arthritis. Neurologically she is awake and alert. Const Vital Signs: 09/11/21 17:43 Temperature 99.1 F Temperature Source Oral Pulse Rate 71 Respiratory Rate 16 Blood Pressure 91/60 Blood Pressure Mean 70 Pulse Ox 97 Oxygen Delivery Method Room Air Positive well nourished, well developed and obese; Negative for cachectic, contractures or unkempt General Appearance ED: well developed; Negative for unkempt, cachectic or contractures Nutritional Appearance: obese; Negative for cachectic HEENT Reports moist mucous membranes; Denies dry mucous membranes Negative for trauma or tenderness Mouth ED: No dry mucous membranes Mouth: No dry mucous membranes Eyes PERRL and EOMs intact bilaterally General Eye ED: Negative for pale conjunctiva or scleral icterus Neck no lymphadenopathy, supple and no JVD General: Negative for tenderness Chest Wall inspection of chest normal and palpation of chest normal Chest: Negative for other Resp normal respiratory effort and clear to auscultation bilaterally Effort and Inspection: Negative for retractions Auscultation: Negative for rales, rhonchi or wheezes Cardio regular rate, regular rhythm, S1 normal heart sound, S2 normal heart sound and no murmurs Palpation: Negative for palpable S3 Rate: Negative for bradycardia Rhythm: Negative for abnormal rhythm GI normal to inspection, nondistended, normoactive bowel sounds, non-tender, non-distended and no masses; Negative for hepatosplenomegaly Inspection: Negative for abdominal distention Auscultation: normoactive bowel sounds; Negative for hyperactive bowel sounds or hypoactive bowel sounds Palpation: soft; Negative for tender, guarding, splenomegaly or mass Back/Spine no CVA tenderness General Back: Negative for CVA tenderness Cervical Spine: Negative for cervical spine tenderness Thoracic Spine / Upper Back: Negative for thoracic spinal tenderness Lumbar Spine / Lower Back: Negative for lumbar spinal tenderness Extremity normal to inspection Extremity Narrative: Chronic swelling of the left ankle. No redness. No warmth. General Extremety ED: Negative for edema or tenderness General Extremity: Negative for edema Neuro oriented x3 Psych Appearance: Negative for unkempt Attitude: No agitated Mood & Affect: Negative for depressed, anxious or tearful Skin no rashes or lesions noted and no wounds Lesions: No lesion noted Rashes: No rashes noted Trauma: Negative for abrasion Wounds: Negative for wounds noted MDM MDM MDM Narrative Medical decision making narrative: 56-year-old female that is hypotensive. She is acute on chronic ankle pain. She requested Dilaudid for pain with I explained we would not do Dilaudid for this pain but she could have 1 [place]. She will be getting a liter normal saline for her hypotension I will do some screening labs. Her exam otherwise is benign. Patient is requesting Dilaudid. I explained to her she would not get IV pain medication for chronic ankle pain. She was previously given a [place]. She left prior to being discharged. Lab Data Attestation: I reviewed the patient's lab results. Lab results narrative: CBC shows a white count of 10. H&H 12 and 39. Platelets 296. Electrolytes show a gap of 6 normal BUN and creatinine. Glucose 93. Lactic acid of 1.1. Labs: Laboratory Results - last 24 hr 09/11/21 09/11/21 09/11/21 18:11 18:11 18:11 WBC 10.8 RBC 4.68 Hgb 12.5 Hct 39.1 MCV 83.5 MCH 26.7 L MCHC 32.0 RDW Std Deviation 55.4 H RDW Coeff of [place] 18.6 H Plt Count 296 MPV 9.4 Immature Gran % (Auto) 0.300 Neut % (Auto) 73.8 H Lymph % (Auto) 15.2 L [place] % (Auto) 7.5 Eos % (Auto) 2.3 Baso % (Auto) 0.9 Absolute Neuts (auto) 7.9 H Absolute Lymphs (auto) 1.63 Nucleated RBC % 0 Sodium 137 Potassium 4.4 Chloride 108 H Carbon Dioxide 23.0 Anion Gap 6 BUN 8 Creatinine 0.89 Estim Creat Clear Calc 60.95 Est GFR (MDRD) Af Amer 84 Est GFR (MDRD) Non-Af 70 BUN/Creatinine Ratio 9.0 L Glucose 93 Lactic Acid 1.1 Calcium 9.2 Discharge Plan Triage Chief Complaint: Lower Extremity Injury ED Provider: Hema Feng Dx/Rx/DC Orders Clinical Impression: Ankle pain, left, Acute hypotension Instructions: ED Low Blood Pressure, All Causes, ED Chronic Pain Prescriptions: No Action albuterol sulfate 2.5 mg /3 mL (0.083 %) solution for nebulization 2.5 mg inhalation Q4H PRN (Reason: Sob &/Or Wheezing) Qty: 180 3RF montelukast 10 mg tablet 10 mg PO DAILY atorvastatin 80 MG tablet 80 mg PO QHS Label Comments: cholesterol risperidone 4 mg tablet 4 mg PO QHS Label Comments: Take 1 tablet by mouth at bedtime trazodone 100 MG tablet 200 mg PO QHS PRN (Reason: Insomnia) pregabalin 75 MG capsule 75 mg PO TID buspirone 30 mg tablet 30 mg PO BID mirabegron 25 MG tablet extended release 24 hr 25 mg PO DAILY apixaban 5 MG tablet 5 mg PO BID Rx Instructions: clopidogrel 75 mg tablet 75 mg PO DAILY promethazine 25 mg Tablet 25 mg PO BID PRN PRN (Reason: Nausea) escitalopram oxalate 20 mg Tablet 20 mg PO DAILY Advair HFA 230-21 mcg/actuation Hfa Aerosol Inhaler 2 puff INHALATION BID albuterol sulfate 1 PUFF HFA aerosol inhaler 2 puff IH Q4H PRN PRN (Reason: SOB &/or Wheezing ) fluticasone propionate 50 mcg/actuation [place],Suspension 1 spray INTRANASAL BID potassium chloride [K-Tab] 20 mEq tablet extended release 40 meq PO DAILY hydrocodone-acetaminophen 1 TABLET tablet 1 tab PO Q4H PRN PRN (Reason: Pain) 2 Days Qty: 10 0RF sucralfate 1 gram tablet 1 g PO Q6H pantoprazole 40 mg tablet,delayed release (DR/EC) 40 mg PO BID metoprolol succinate 25 mg tablet extended release 24 hr 25 mg PO DAILY Qty: 60 0RF tiotropium bromide 2.5 mcg/actuation mist 2 puff INHALATION DAILY Qty: 4 3RF prednisone 10 mg tablet 10 mg PO QDAY Qty: 30 0RF Rx Instructions: take 4 tabs for three days, then 3 tabs for three days, then 2 tabs for three days, then 1 tab for 3 days Primary Care Provider: Janel Taylor Referrals: Janel Taylor MD [Primary Care Provider] - Disposition Disposition: Elopement
[2021-09-11] MEDS: HYDROcodone Bitartrate/Apap 5/325 Tablet PO (18:14)
[2021-09-11] MEDS: 0.9% Normal Saline 1,000 ML 1000 ML IV (18:15)
[2021-09-11 18:20] LABS: Absolute Lymphocyte Count 1.63 X10^3/uL (0.83-4.51); Absolute Neutrophil Count 7.9 X10^3/uL (2.0-7.7); Basophil% 0.9 % (0-1); Eosinophil# 0.25 X10^3/uL; Eosinophils% 2.3 % (0-5); Hematocrit 39.1 % (37-47); Hemoglobin 12.5 g/dL (12.0-15.0); Lymphocyte # 1.63 X10^3/ul (0.83-4.51); Lymphocyte % 15.2 % (19-41); Mean Corpuscular Hgb 26.7 pg (27.0-32.0); Mean Corpuscular Volume 83.5 fL (81-99); Mean Platelet Vol. 9.4 fl (6.2-12.0); Monocyte# 0.81 X10^3/uL; Monocyte% 7.5 % (0-10); NRBC Flagged by Analyzer 0 % (0-5); Neutrophil # 7.93 X10^3/uL (2.7-7.7); Neutrophil % 73.8 % (47-70); Platelet Count 296 K/mm3 (150-450); RBC Distribution Width CV 18.6 % (11.6-14.6); RBC Distribution Width SD 55.4 fl (35.1-43.9); Red Blood Count 4.68 M/mm3 (4.2-5.4); White Blood Count 10.8 K/mm3 (4.4-11.0)
[2021-09-11 18:40] LABS: Anion Gap 6 (5-15); BUN 8 mg/dL (7-18); Calcium,Total 9.2 mg/dL (8.5-10.1); Chloride 108 mmol/L (98-107); Creatinine, Serum 0.89 mg/dL (0.55-1.02); EST Glomerular Filtration Rate 70 mL/min (>60); Est Glom Filt Rate - Afr Amer 84 mL/min (>60); Estimated Creatinine Clearance 60.95 ml/min; Glucose 93 mg/dL (74-106); Potassium 4.4 mmol/L (3.5-5.1); Sodium Level 137 mmol/L (136-145)
[2021-09-11 18:55] LABS: Lactic Acid 1.1 mmol/L (0.4-1.9)
[2021-09-11 20:16] VITALS: BP 110/65
== END 2021-09-11 20:23 | disposition left against medical advice (07) ==
PROVIDERS: Emergency Provider Emergency Medicine; PCP Family Medicine; Visit Provider Emergency Medicine
DX: M25.572 Pain in left ankle and joints of left foot (principal); F25.9 Schizoaffective disorder, unspecified; J43.9 Emphysema, unspecified; E11.9 Type 2 diabetes mellitus without complications; Z79.4 Long term (current) use of insulin; I95.9 Hypotension, unspecified; I25.10 Atherosclerotic heart disease of native coronary artery without angina pectoris; E78.00 Pure hypercholesterolemia, unspecified; I10 Essential (primary) hypertension; G89.29 Other chronic pain; M16.10 Unilateral primary osteoarthritis, unspecified hip; E66.9 Obesity, unspecified; G47.33 Obstructive sleep apnea (adult) (pediatric); F17.210 Nicotine dependence, cigarettes, uncomplicated; M48.062 Spinal stenosis, lumbar region with neurogenic claudication; Z79.52 Long term (current) use of systemic steroids; Z79.01 Long term (current) use of anticoagulants
CPT/HCPCS: 80048; 83605; 85025; 93005; 96360; 99285; J7030

== ENCOUNTER 2021-09-26 14:54 | Emergency (ER) | payer MEDICARE, MEDICAID, SELFPAY ==
[2021-09-26 14:56] VITALS: BP 160/94; PULSE 96; RESP 15; TEMP 36.8; O2SAT 97; BMI 34.3
--- NOTE | 2021-09-26 15:20 | ED.RN ---
This RN was questioning patient as to reason for ED visit, pt states my left ankle gave out and i feel and hit my head This RN states that the triage note mentions pt passing out & the patient states no, I called the squad because my left ankle and right hip hurt.
--- NOTE | 2021-09-26 15:31 | CT_ITS ---
STUDY: CT BRAIN WITHOUT CONTRAST REASON FOR EXAM: Female, 56 years old. HEADACHE Technologist Notes ON COUMDAIN, DB, OK WITH STENTS, HTN, COPD, EMPHYSEMA TECHNIQUE: Transaxial CT imaging of the brain was performed without administration of intravenous contrast material. Individualized dose optimization techniques were used for this CT. COMPARISON: None FINDINGS: Normal calvarium. Normal soft tissues. Normal size ventricles and extra-axial spaces for the patient''s age. There are areas of decreased attenuation within the white matter tracts of the supratentorial brain, consistent with microvascular disease changes. Normal basal ganglia and thalami. Normal brainstem. Normal cerebellum. There is no intracranial hemorrhage. There are no findings of an acute ischemic infarction. There are calcifications noted in the distal vertebral arteries. There are calcifications noted in the cavernous carotid arteries. This is consistent for atherosclerotic disease. Normal visualized paranasal sinuses. ASPECTS 10 CT/Brain/Head without Contrast IMPRESSION: Chronic involutional changes of the brain. Electronically Signed: Guanako Gil MD at 16:52 EDT ,
--- NOTE | 2021-09-26 15:33 | ED.VIS.FALL ---
HPI HPI - Fall History of Present Illness Chief Complaint: Fall Narrative Narrative: She has chronic problems with her left ankle for which she has surgery scheduled, and it gave out today causing her to fall while in her home, hitting her head on the door. She must of had a brief loss of consciousness, she woke up on the floor with a headache and a popping sensation with pain in her right hip where she had a replacement and revision remotely. She is now having pain in the medial aspect of her left ankle. She is able to bear weight, right lower extremity no problem, barely on the left because of pain in her ankle. No other injuries or acute pains. Takes apixaban. [facility] Medical History Anemia Asthma Atherosclerotic heart disease of [place] coronary artery without angina pectoris Benign essential hypertension BiPAP (biphasic positive airway pressure) dependence Bleeding tendency Blood loss anemia CAD (coronary artery disease) Cardiac dysrhythmia Chest pain Chest pain at rest Chronic cough Chronic narcotic use Closed fracture of proximal end of fibula COPD (chronic obstructive pulmonary disease) Current use of insulin Delayed surgical wound healing Diabetes Dislocation of hip, right, closed Emphysema of lung Gastroesophageal reflux disease High cholesterol Hip osteoarthritis History of left heart catheterization (LHC) (~07/05/21) History of pulmonary embolism History of revision of total replacement of right hip joint History of stress test Hypertension Irregular heart beat Irritable bowel Morbid obesity Morbid obesity with BMI of 45.0-49.9, adult Myocardial infarct On home oxygen therapy RACHEL (obstructive sleep apnea) Pancreatitis Peptic ulcer Preoperative cardiovascular examination Presence of stent in coronary artery (~02/07/11) Pulmonary hypertension Schizoaffective disorder Schizophrenia Sleep apnea Smoker Spinal stenosis of lumbar region at multiple levels Stage 2 moderate COPD by GOLD classification Suspected COVID-19 virus infection Tak[place] cardiomyopathy Thyroid nodule Tobacco abuse Ulcer Vitamin D deficiency Home Medications atorvastatin 80 mg tablet 80 mg PO QHS cholesterol 08/22/15 [History Last Taken 08/03/21] pregabalin 75 mg capsule 75 mg PO TID PAIN 03/08/18 [History Last Taken 08/03/21] risperidone 4 mg tablet 4 mg PO QHS sleep 03/08/18 [History Last Taken 08/04/21] trazodone 100 mg tablet 200 mg PO QHS PRN Insomnia 03/08/18 [History Last Taken 08/04/21] mirabegron 25 mg tablet,extended release 24 hr 25 mg PO DAILY bladder 11/20/18 [History Last Taken 08/03/21] apixaban 5 mg tablet 5 mg PO BID blood thinner 05/02/19 [History Last Taken 08/03/21] buspirone 30 mg tablet 30 mg PO BID anxiety 06/27/19 [History Last Taken 08/03/21] tiotropium bromide 2.5 mcg/actuation mist for inhalation 2 puff inhalation DAILY sob #4 grams 09/30/19 [Rx Last Taken 08/05/21] clopidogrel 75 mg tablet 75 mg PO DAILY blood thinner 07/31/20 [History Last Taken 08/03/21] albuterol sulfate 90 mcg/actuation aerosol inhaler 2 puff IH Q4H PRN PRN SOB &/or Wheezing 11/14/20 [History Last Taken 08/05/21] escitalopram oxalate 20 mg tablet 20 mg PO DAILY mental health 11/14/20 [History Last Taken 08/03/21] fluticasone propionate 230 mcg-salmeterol 21 mcg/actuation HFA inhaler (Advair HFA) 2 puff inhalation BID SOB 11/14/20 [History Last Taken 08/05/21] fluticasone propionate 50 mcg/actuation nasal spray,suspension 1 spray intranasal BID allergies 11/14/20 [History Last Taken 08/03/21] promethazine 25 mg tablet 25 mg PO BID PRN PRN Nausea 11/14/20 [History Last Taken 08/04/21] potassium chloride 20 mEq tablet,extended release (K-Tab) 40 meq PO DAILY potassium replacement 01/13/21 [History Last Taken 08/05/21] albuterol sulfate 2.5 mg/3 mL (0.083 %) solution for nebulization 2.5 mg (3 mL) inhalation Q4H PRN Sob &/Or Wheezing #180 mL 05/25/21 [Rx Last Taken Unknown] hydrocodone-acetaminophen 5-325mg 5mg-325mg 1 tab PO Q4H PRN PRN Pain 2 days #10 TABLETS 05/26/21 [Rx Last Taken 08/05/21] montelukast 10 mg tablet 10 mg PO DAILY pain 06/29/21 [History Last Taken 08/03/21] pantoprazole 40 mg tablet,delayed release 40 mg PO BID gerd 08/05/21 [History Last Taken 08/03/21] sucralfate 1 gram tablet 1 g PO Q6H stomach 08/05/21 [History Last Taken 08/04/21] metoprolol succinate 25 mg tablet,extended release 24 hr 25 mg PO DAILY #60 tabs 08/06/21 [Rx Last Taken Unknown] prednisone 10 mg tablet 10 mg PO QDAY #30 tabs 08/26/21 [Rx Last Taken Unknown] Allergy/AdvReac Type Severity Reaction Status Date / Time tramadol [From Ultram] Allergy Severe Blisters, Verified 09/26/21 14:56 itching amoxicillin Allergy Itching Verified 09/26/21 14:56 erythromycin base Allergy Unknown Verified 09/26/21 14:56 methadone Allergy Itching Verified 09/26/21 14:56 metolazone Allergy Unknown Verified 09/26/21 14:56 Penicillins Allergy Hives Verified 09/26/21 14:56 Sulfa (Sulfonamide Allergy Hives Verified 09/26/21 14:56 Antibiotics) clarithromycin [From Biaxin] AdvReac Nausea Verified 09/26/21 14:56 ibuprofen AdvReac 3 BLEEDING Verified 09/26/21 14:56 ULCERS morphine AdvReac HEADACHE Verified 09/26/21 14:56 oxycodone [From Percocet] AdvReac Itching Verified 09/26/21 14:56 Family History Mother Heart disease Cancer uterine Father Hypertension Arthritis Hyperlipemia Grandmother Breast cancer Heart disease Grandfather Heart disease Sister Hypertension Surgical History History of appendectomy History of carpal tunnel surgery of left wrist History of cholecystectomy History of gastric bypass History of gastric bypass History of right ankle surgery history of right hip surgery History of tonsillectomy Presence of coronary angioplasty implant and graft (~02/07/11) Social History household members: none Smoking Status: Current every day smoker tobacco type: cigarettes alcohol intake: never substance use type: does not use caffeine: Yes (occasional) what type of physical activity do you participate in: none ROS ROS ED Constitutional Constitutional ED: Denies chills or fever(s) Eyes Eyes: Denies change in vision or diplopia ENT ENT ED: Denies ear pain, epistaxis, facial pain or rhinorrhea Cardiovascular Cardiovascular: Denies chest pain or palpitations Respiratory/Chest Respiratory/Chest: Denies cough or dyspnea Gastrointestinal Gastrointestinal: Denies abdominal pain, diarrhea, melena, nausea or vomiting Genitourinary Genitourinary ED: Denies dysuria or hematuria Musculoskeletal Musculoskeletal: Reports extremity pain and other Details: Chronic low back pain unchanged ; Denies neck pain Integumentary Denies abscess, Abrasions, laceration or rash Neurologic Neurologic: Reports headache(s); Denies confusion, paresthesias or weakness EXAM Physical Exam Const Vital Signs: 09/26/21 14:56 09/26/21 15:40 Temperature 98.2 F Temperature Source Temporal Pulse Rate 96 Respiratory Rate 15 Respiratory Effort Normal Non-Labored Respiratory Depth Normal Respiratory Pattern Normal Blood Pressure 160/94 H Blood Pressure Mean 116 Pulse Ox 97 Oxygen Delivery Method Room Air Positive well nourished, well developed and obese General Appearance ED: well developed and NAD Nutritional Appearance: obese HEENT Reports nasal mucous membranes and turbinates normal HEENT Narrative: Mild tenderness to the left parietal scalp, without evidence of trauma, crepitance, depression, hematoma, laceration. As Face and Sinus: Negative for facial tenderness Eyes PERRL and EOMs intact bilaterally Visual Acuity: other Other Details: no entrapment or pain with extraocular movements Neck full ROM and supple General: Negative for tenderness Chest Wall inspection of chest normal and palpation of chest normal Chest: symmetrical chest wall rise; Negative for crepitus or tenderness Resp normal respiratory effort and clear to auscultation bilaterally Percussion: other equal BS bilat Cardio no murmurs Rate: regular rate Rhythm: regular rhythm GI normal to inspection, nondistended, normoactive bowel sounds, soft to palpation and non-tender Back/Spine normal ROM Back/Spine Narrative: Mild tenderness low back nontender in the midline Cervical Spine: Negative for cervical spine tenderness Thoracic Spine / Upper Back: Negative for thoracic spinal tenderness Lumbar Spine / Lower Back: Negative for lumbar spinal tenderness Extremity normal to inspection and full ROM Extremity Narrative: Tender left medial malleolus no deformities healed surgical scar similar area. General Extremety ED: Yes tenderness Neuro oriented x3, CN's II-XII intact bilaterally, moves all extremities, no focal motor deficits and no sensory deficits noted Jasbir Coma Scale: document GCS findings Spontaneous Obeys Commands Oriented 15 Sensorium / Orientation: awake and alert Psych mental status grossly normal and thought process normal Skin no wounds Lesions: no lesions Rashes: no rashes MDM MDM MDM Narrative Medical decision making narrative: Three-view x-rays of the left ankle are negative on my interpretation, radiology in agreement. CT of the head is negative for any acute traumatic abnormality. Patient was given Tylenol for pain, given the head injury I do not recommend narcotics even though she says she needs them for her ankle. I will offer her an Robbi wrap and/or crutches if she does not already have them, and discharge her home, again she is scheduled for surgery on this ankle which is given her chronic issues. Of note, I do not think her right hip needs to be x-rayed. She has some mild soreness at the greater trochanter with palpation as well, but she has painless internal and external range of motion, no groin pain, able to bear weight, and clinically is not dislocated. Radiography Diagnostic Testing: Clinical Impression(s) from Imaging Studies Brain CT 09/26/21 15:31 IMPRESSION: Chronic involutional changes of the brain. Electronically Signed: Guanako Gil MD at 16:52 EDT , Ankle X-Ray 09/26/21 15:45 IMPRESSION: There is soft tissue swelling. Electronically Signed: Guanako Gil MD at 16:09 EDT , Discharge Plan Triage Chief Complaint: Fall Other Complaint: Syncope ED Provider: Rodrigo Delvalle Dx/Rx/DC Orders Clinical Impression: Closed head injury with brief loss of consciousness, Injury of ankle, left, Chronic pain of left ankle Instructions: ED Head Injury (Adult) Prescriptions: No Action albuterol sulfate 2.5 mg /3 mL (0.083 %) solution for nebulization 2.5 mg inhalation Q4H PRN (Reason: Sob &/Or Wheezing) Qty: 180 3RF montelukast 10 mg tablet 10 mg PO DAILY atorvastatin 80 MG tablet 80 mg PO QHS Label Comments: cholesterol risperidone 4 mg tablet 4 mg PO QHS Label Comments: Take 1 tablet by mouth at bedtime trazodone 100 MG tablet 200 mg PO QHS PRN (Reason: Insomnia) pregabalin 75 MG capsule 75 mg PO TID buspirone 30 mg tablet 30 mg PO BID mirabegron 25 MG tablet extended release 24 hr 25 mg PO DAILY apixaban 5 MG tablet 5 mg PO BID Rx Instructions: clopidogrel 75 mg tablet 75 mg PO DAILY promethazine 25 mg Tablet 25 mg PO BID PRN PRN (Reason: Nausea) escitalopram oxalate 20 mg Tablet 20 mg PO DAILY Advair HFA 230-21 mcg/actuation Hfa Aerosol Inhaler 2 puff INHALATION BID albuterol sulfate 1 PUFF HFA aerosol inhaler 2 puff IH Q4H PRN PRN (Reason: SOB &/or Wheezing ) fluticasone propionate 50 mcg/actuation [place],Suspension 1 spray INTRANASAL BID potassium chloride [K-Tab] 20 mEq tablet extended release 40 meq PO DAILY hydrocodone-acetaminophen 1 TABLET tablet 1 tab PO Q4H PRN PRN (Reason: Pain) 2 Days Qty: 10 0RF sucralfate 1 gram tablet 1 g PO Q6H pantoprazole 40 mg tablet,delayed release (DR/EC) 40 mg PO BID metoprolol succinate 25 mg tablet extended release 24 hr 25 mg PO DAILY Qty: 60 0RF tiotropium bromide 2.5 mcg/actuation mist 2 puff INHALATION DAILY Qty: 4 3RF prednisone 10 mg tablet 10 mg PO QDAY Qty: 30 0RF Rx Instructions: take 4 tabs for three days, then 3 tabs for three days, then 2 tabs for three days, then 1 tab for 3 days Primary Care Provider: Janel Taylor Referrals: Janel Taylor MD [Primary Care Provider] - 1 Week if not improving Activity Restrictions/Additional Instructions: Narcotics are contraindicated in context of head injuries. You may resume using your hydrocodone after your headache and other symptoms that are new resolve. Disposition Disposition: Home, Self Care
--- NOTE | 2021-09-26 15:45 | RAD_ITS ---
STUDY: XR Ankle Min 3 Views REASON FOR EXAM: Female, 56 years old. ANKLE PAIN History: injury Technologist Notes PAIN TO MEDIAL MALLEOLI S/P FALL AFTER ANKLE GAVE OUT. HX OF MULTIPLE SURGERIES- TO HAVE ANOTHER IN TECHNIQUE: XR Ankle Min 3 Views LEFT COMPARISON: 9.3.17 FINDINGS: There is a metal sideplate transfixing the distal fibula. There are cortical screws holding the plate in place. Description 60 minute medial malleolus. Degenerative findings around the ankle mortise. The visualized subtalar, talonavicular, calcaneocuboid and tarsal articulations are normal. There is a plantar calcaneal spur. There is soft tissue swelling around the ankle. RAD/Ankle min 3 Views IMPRESSION: There is soft tissue swelling. Electronically Signed: Guanako Gil MD at 16:09 EDT ,
[2021-09-26] MEDS: Acetaminophen 325 MG Tablet 650 MG PO (15:55)
[2021-09-26 17:24] VITALS: BP 154/66; PULSE 88; O2SAT 97
== END 2021-09-26 17:24 | disposition home or self-care (01) ==
PROVIDERS: Emergency Provider Emergency Medicine; PCP Family Medicine; Visit Provider Emergency Medicine
DX: S06.9X9A Unspecified intracranial injury with loss of consciousness of unspecified duration, initial encounter (principal); S99.912A Unspecified injury of left ankle, initial encounter; M25.572 Pain in left ankle and joints of left foot; G89.29 Other chronic pain; W01.198A Fall on same level from slipping, tripping and stumbling with subsequent striking against other object, initial encounter; Y92.009 Unspecified place in unspecified non-institutional (private) residence as the place of occurrence of the external cause; F20.9 Schizophrenia, unspecified; J43.9 Emphysema, unspecified; I25.10 Atherosclerotic heart disease of native coronary artery without angina pectoris; E11.9 Type 2 diabetes mellitus without complications; I10 Essential (primary) hypertension; E78.00 Pure hypercholesterolemia, unspecified; G47.33 Obstructive sleep apnea (adult) (pediatric); E66.01 Morbid (severe) obesity due to excess calories; Z68.42 Body mass index [BMI] 45.0-49.9, adult; Z79.4 Long term (current) use of insulin; Z79.01 Long term (current) use of anticoagulants; Z79.02 Long term (current) use of antithrombotics/antiplatelets; F17.210 Nicotine dependence, cigarettes, uncomplicated; Z99.81 Dependence on supplemental oxygen; Z86.711 Personal history of pulmonary embolism; Z95.5 Presence of coronary angioplasty implant and graft; Z98.84 Bariatric surgery status; Z79.899 Other long term (current) drug therapy; Z96.641 Presence of right artificial hip joint
CPT/HCPCS: 70450; 73610; 99284

== ENCOUNTER 2021-10-14 18:40 | Emergency (ER) | payer MEDICARE, MEDICAID, SELFPAY ==
[2021-10-14 18:41] VITALS: BP 148/76; PULSE 59; RESP 18; TEMP 36.5; O2SAT 98; BMI 37.3
--- NOTE | 2021-10-14 18:46 | EDS_ITS ---
HPI History of Present Illness Chief Complaint: Wound Check Detail of Chief Complaint: Bleeding from hip incision site. Informant: patient Onset/Context/Timing Onset: Today Timing: Continuous Quality: Bright red blood. Location: Right hip area Current Severity: Mild Maximum Severity: Mild Worsened by: Patient on antiplatelet and anticoagulant Relieved by: Nothing Associated Symptoms Associated Symptoms: Nothing Narrative Narrative: Patient on Plavix and Eliquis for blood clots. Patient had hip surgery by Dr. Giovanny Yung July 06. She presents because she noted blood when she removed her clothes and took a shower. She put a Band-Aid on the area and continued to bleed. She denies history of trauma. She has no other complaints. Prior similar symptoms: No Recent Illness/Hospitalization: No PFSH PFSH Medical History Anemia Asthma Atherosclerotic heart disease of [place] coronary artery without angina pectoris Benign essential hypertension BiPAP (biphasic positive airway pressure) dependence Bleeding tendency Blood loss anemia CAD (coronary artery disease) Cardiac dysrhythmia Chest pain Chest pain at rest Chronic cough Chronic narcotic use Closed fracture of proximal end of fibula COPD (chronic obstructive pulmonary disease) Current use of insulin Delayed surgical wound healing Diabetes Dislocation of hip, right, closed Emphysema of lung Gastroesophageal reflux disease High cholesterol Hip osteoarthritis History of left heart catheterization (LHC) (~07/05/21) History of pulmonary embolism History of revision of total replacement of right hip joint History of stress test Hypertension Irregular heart beat Irritable bowel Morbid obesity Myocardial infarct On home oxygen therapy RACHEL (obstructive sleep apnea) Pancreatitis Peptic ulcer Preoperative cardiovascular examination Presence of stent in coronary artery (~02/07/11) Pulmonary hypertension Schizoaffective disorder Schizophrenia Sleep apnea Smoker Spinal stenosis of lumbar region at multiple levels Stage 2 moderate COPD by GOLD classification Suspected COVID-19 virus infection Takotsubo cardiomyopathy Thyroid nodule Tobacco abuse Ulcer Vitamin D deficiency Home Medications atorvastatin 80 mg tablet 80 mg PO QHS cholesterol 08/22/15 [History Last Taken 08/03/21] pregabalin 75 mg capsule 75 mg PO TID PAIN 03/08/18 [History Last Taken 08/03/21] risperidone 4 mg tablet 4 mg PO QHS sleep 03/08/18 [History Last Taken 08/04/21] trazodone 100 mg tablet 200 mg PO QHS PRN Insomnia 01/03/19 [History Last Taken 08/04/21] mirabegron 25 mg tablet,extended release 24 hr 25 mg PO DAILY bladder 11/20/18 [History Last Taken 08/03/21] apixaban 5 mg tablet 5 mg PO BID blood thinner 05/02/19 [History Last Taken 08/03/21] buspirone 30 mg tablet 30 mg PO BID anxiety 06/27/19 [History Last Taken 08/03/21] tiotropium bromide 2.5 mcg/actuation mist for inhalation 2 puff inhalation DAILY sob #4 grams 09/30/19 [Rx Last Taken 08/05/21] clopidogrel 75 mg tablet 75 mg PO DAILY blood thinner 07/31/20 [History Last Taken 08/03/21] albuterol sulfate 90 mcg/actuation aerosol inhaler 2 puff IH Q4H PRN PRN SOB &/or Wheezing 11/14/20 [History Last Taken 08/05/21] escitalopram oxalate 20 mg tablet 20 mg PO DAILY mental health 11/14/20 [History Last Taken 08/03/21] fluticasone propionate 230 mcg-salmeterol 21 mcg/actuation HFA inhaler (Advair HFA) 2 puff inhalation BID SOB 11/14/20 [History Last Taken 08/05/21] fluticasone propionate 50 mcg/actuation nasal spray,suspension 1 spray intranasal BID allergies 11/14/20 [History Last Taken 08/03/21] promethazine 25 mg tablet 25 mg PO BID PRN PRN Nausea 11/14/20 [History Last Taken 08/04/21] potassium chloride 20 mEq tablet,extended release (K-Tab) 40 meq PO DAILY potassium replacement 01/13/21 [History Last Taken 08/05/21] albuterol sulfate 2.5 mg/3 mL (0.083 %) solution for nebulization 2.5 mg (3 mL) inhalation Q4H PRN Sob &/Or Wheezing #180 mL 05/25/21 [Rx Last Taken Unknown] hydrocodone-acetaminophen 5-325mg 5mg-325mg 1 tab PO Q4H PRN PRN Pain 2 days #10 TABLETS 05/26/21 [Rx Last Taken 08/05/21] montelukast 10 mg tablet 10 mg PO DAILY pain 06/29/21 [History Last Taken 08/03/21] pantoprazole 40 mg tablet,delayed release 40 mg PO BID gerd 08/05/21 [History Last Taken 08/03/21] sucralfate 1 gram tablet 1 g PO Q6H stomach 08/05/21 [History Last Taken 08/04/21] metoprolol succinate 25 mg tablet,extended release 24 hr 25 mg PO DAILY #60 tabs 08/06/21 [Rx Last Taken Unknown] Allergy/AdvReac Type Severity Reaction Status Date / Time tramadol [From Ultram] Allergy Severe Blisters, Verified 10/14/21 18:41 itching amoxicillin Allergy Itching Verified 10/14/21 18:41 erythromycin base Allergy Unknown Verified 10/14/21 18:41 methadone Allergy Itching Verified 10/14/21 18:41 metolazone Allergy Unknown Verified 10/14/21 18:41 Penicillins Allergy Hives Verified 10/14/21 18:41 Sulfa (Sulfonamide Allergy Hives Verified 10/14/21 18:41 Antibiotics) clarithromycin [From Biaxin] AdvReac Nausea Verified 10/14/21 18:41 ibuprofen AdvReac 3 BLEEDING Verified 10/14/21 18:41 ULCERS morphine AdvReac HEADACHE Verified 10/14/21 18:41 oxycodone [From Percocet] AdvReac Itching Verified 10/14/21 18:41 Family History Mother Heart disease Cancer uterine Father Hypertension Arthritis Hyperlipemia Grandmother Breast cancer Heart disease Grandfather Heart disease Sister Hypertension Surgical History History of appendectomy History of carpal tunnel surgery of left wrist History of cholecystectomy History of gastric bypass History of gastric bypass History of right ankle surgery history of right hip surgery History of tonsillectomy Presence of coronary angioplasty implant and graft (~02/07/11) Social History household members: none Smoking Status: Current every day smoker tobacco type: cigarettes alcohol intake: never substance use type: does not use caffeine: Yes (occasional) what type of physical activity do you participate in: none ROS ROS ED Constitutional Constitutional ED: Denies chills, fever(s), subjective, sweats or weight loss Gastrointestinal Gastrointestinal: Denies melena Genitourinary Genitourinary ED: Denies hematuria Musculoskeletal Musculoskeletal: Denies arthralgias, back pain, myalgias or neck pain Integumentary Denies abscess Hematologic/Lymphatic Hematologic/Lymphatic: Reports easy bleeding and easy bruising; Denies anemia or lymphadenopathy EXAM Physical Exam Const Vital Signs: 10/14/21 18:41 Temperature 97.7 F L Temperature Source Temporal Pulse Rate 59 L Respiratory Rate 18 Blood Pressure 148/76 H Blood Pressure Mean 100 Pulse Ox 98 Oxygen Delivery Method Room Air Positive well nourished, well developed and obese General Appearance ED: well developed and NAD; Negative for pallor Nutritional Appearance: obese HEENT Reports moist mucous membranes HEENT Narrative: Has a macrocephalic. Ears normal. Nares patent. Mucosa is moist. Eyes PERRL and EOMs intact bilaterally General Eye ED: Negative for pale conjunctiva Neck no lymphadenopathy, supple and no JVD Resp normal respiratory effort Cardio regular rate and regular rhythm Extremity Extremity Narrative: Superior to the incision site there is a small puncture wound abrasion that is bleeding. This most likely is persistent because she is on Plavix and Eliquis. Neuro oriented x3, CN's II-XII intact bilaterally and no sensory deficits noted Sensorium / Orientation: alert Motor Exam: strength 5/5 throughout Skin No no rashes or lesions noted and No no wounds General Skin Exam: Negative for jaundice or pallor Wounds: wounds noted MDM MDM MDM Narrative Medical decision making narrative: Patient with small wound noted above the incision site. There appears to be a puncture wound. This is the cause of her bleeding. In all likelihood this has not resolved because patient is on antiplatelet and anticoagulant. We will have the area cleaned pressure applied. The bleeding stopped. We will have nurse place dressing Discharge Plan Triage Chief Complaint: Wound Check ED Provider: Balaji Armstrong Dx/Rx/DC Orders Clinical Impression: Bleeding from right hip wound, Anticoagulant long-term use Instructions: ED Puncture Wound (General) Prescriptions: No Action albuterol sulfate 2.5 mg /3 mL (0.083 %) solution for nebulization 2.5 mg inhalation Q4H PRN (Reason: Sob &/Or Wheezing) Qty: 180 3RF montelukast 10 mg tablet 10 mg PO DAILY atorvastatin 80 MG tablet 80 mg PO QHS Label Comments: cholesterol risperidone 4 mg tablet 4 mg PO QHS Label Comments: Take 1 tablet by mouth at bedtime trazodone 100 MG tablet 200 mg PO QHS PRN (Reason: Insomnia) pregabalin 75 MG capsule 75 mg PO TID buspirone 30 mg tablet 30 mg PO BID mirabegron 25 MG tablet extended release 24 hr 25 mg PO DAILY apixaban 5 MG tablet 5 mg PO BID Rx Instructions: clopidogrel 75 mg tablet 75 mg PO DAILY promethazine 25 mg Tablet 25 mg PO BID PRN PRN (Reason: Nausea) escitalopram oxalate 20 mg Tablet 20 mg PO DAILY Advair HFA 230-21 mcg/actuation Hfa Aerosol Inhaler 2 puff INHALATION BID albuterol sulfate 1 PUFF HFA aerosol inhaler 2 puff IH Q4H PRN PRN (Reason: SOB &/or Wheezing ) fluticasone propionate 50 mcg/actuation [place],Suspension 1 spray INTRANASAL BID potassium chloride [K-Tab] 20 mEq tablet extended release 40 meq PO DAILY hydrocodone-acetaminophen 1 TABLET tablet 1 tab PO Q4H PRN PRN (Reason: Pain) 2 Days Qty: 10 0RF sucralfate 1 gram tablet 1 g PO Q6H pantoprazole 40 mg tablet,delayed release (DR/EC) 40 mg PO BID metoprolol succinate 25 mg tablet extended release 24 hr 25 mg PO DAILY Qty: 60 0RF tiotropium bromide 2.5 mcg/actuation mist 2 puff INHALATION DAILY Qty: 4 3RF Primary Care Provider: Janel Taylor Referrals: Janel Taylor MD [Primary Care Provider] - As Needed Disposition Disposition: Home, Self Care
[2021-10-14 18:56] VITALS: BP 124/72; PULSE 68; RESP 15; O2SAT 97
== END 2021-10-14 19:03 | disposition home or self-care (01) ==
PROVIDERS: Emergency Provider Emergency Medicine; PCP Family Medicine; Visit Provider Emergency Medicine
DX: S71.031A Puncture wound without foreign body, right hip, initial encounter (principal); F25.9 Schizoaffective disorder, unspecified; J43.9 Emphysema, unspecified; E66.01 Morbid (severe) obesity due to excess calories; E11.9 Type 2 diabetes mellitus without complications; X58.XXXA Exposure to other specified factors, initial encounter; I25.10 Atherosclerotic heart disease of native coronary artery without angina pectoris; E78.00 Pure hypercholesterolemia, unspecified; I10 Essential (primary) hypertension; F17.210 Nicotine dependence, cigarettes, uncomplicated; Z79.01 Long term (current) use of anticoagulants; Z79.02 Long term (current) use of antithrombotics/antiplatelets; Z79.899 Other long term (current) drug therapy; I25.2 Old myocardial infarction; Z86.711 Personal history of pulmonary embolism; Z96.641 Presence of right artificial hip joint; Z95.5 Presence of coronary angioplasty implant and graft; Z98.84 Bariatric surgery status
CPT/HCPCS: 99283

== ENCOUNTER → 2021-10-28 | Outpatient (CLI) | payer MEDICARE, MEDICAID, SELFPAY ==
[2021-10-28 16:55] LABS: Absolute Lymphocyte Count 2.22 X10^3/uL (0.83-4.51); Absolute Neutrophil Count 10.5 X10^3/uL (2.0-7.7); Basophil# 0.16 X10^3/uL; Basophil% 1.1 % (0-1); Eosinophil# 0.18 X10^3/uL; Eosinophils% 1.3 % (0-5); Hematocrit 42.5 % (37-47); Lymphocyte # 2.22 X10^3/ul (0.83-4.51); Lymphocyte % 15.4 % (19-41); Mean Corp Hgb Conc 32.9 g/dL (32-36); Mean Corpuscular Hgb 26.8 pg (27.0-32.0); Mean Corpuscular Volume 81.4 fL (81-99); Mean Platelet Vol. 10.6 fl (6.2-12.0); Monocyte% 8.4 % (0-10); NRBC Flagged by Analyzer 0 % (0-5); Neutrophil # 10.54 X10^3/uL (2.7-7.7); Neutrophil % 73.3 % (47-70); Platelet Count 249 K/mm3 (150-450); RBC Distribution Width CV 17.9 % (11.6-14.6); RBC Distribution Width SD 51.9 fl (35.1-43.9); Red Blood Count 5.22 M/mm3 (4.2-5.4); White Blood Count 14.4 K/mm3 (4.4-11.0)
[2021-10-28 17:28] LABS: AST(SGOT) 23 U/L (15-37); Alanine Aminotransfer ALT/SGPT 30 U/L (13-56); Albumin, Serum 3.8 g/dL (3.2-5.0); Alkaline Phosphatase 163 U/L (45-117); Anion Gap 11 (5-15); BUN 25 mg/dL (7-18); Calcium,Total 9.9 mg/dL (8.5-10.1); Chloride 97 mmol/L (98-107); Creatinine, Serum 1.56 mg/dL (0.55-1.02); EST Glomerular Filtration Rate 37 mL/min (>60); Est Glom Filt Rate - Afr Amer 44 mL/min (>60); Glucose 169 mg/dL (74-106); Potassium 3.7 mmol/L (3.5-5.1); Protein, Total 7.8 g/dL (6.4-8.2); Sodium Level 130 mmol/L (136-145)
[2021-10-28 17:59] LABS: Hepatitis C Antibody Non-Reactive (Nonreactive); Vitamin D,25 Hydroxy 27.8 ng/mL
== END | disposition home or self-care (01) ==
LOC: POLAB3 15:30
PROVIDERS: PCP Family Medicine Geriatric Medicine; Visit Provider Family Medicine Geriatric Medicine
DX: E55.9 Vitamin D deficiency, unspecified (principal); R53.83 Other fatigue; Z13.89 Encounter for screening for other disorder
CPT/HCPCS: 36415; 80053; 82306; 84443; 85025; 86803

== ENCOUNTER 2022-01-21 12:28 | Emergency (ER) | payer MEDICARE, SELFPAY ==
[2022-01-21 12:29] VITALS: BP 106/71; PULSE 90; RESP 18; TEMP 36.6; O2SAT 98; BMI 38.9
--- NOTE | 2022-01-21 12:46 | EX.ED.UPPERE ---
HPI History of Present Illness Chief Complaint: Upper Extremity Injury Narrative Narrative: 56-year-old female presenting with left shoulder and arm pain which has been present for 3 years. She states has been worse over the last 3 days. She states she did not follow-up with her previous orthopedic surgeon because she did not want to see him again. She states she had a shoulder scope 20 years ago. Patient states he is currently supposed to follow-up with Dr. Yung actually 113 systolic in February to evaluate her shoulders. She denies any new trauma. No numbness or tingling. No chest pain or shortness of breath. She is on Eliquis for history of PE and has not missed any doses. [facility] Medical History Anemia Asthma Atherosclerotic heart disease of [place] coronary artery without angina pectoris Benign essential hypertension BiPAP (biphasic positive airway pressure) dependence Bleeding tendency Blood loss anemia CAD (coronary artery disease) Cardiac dysrhythmia Chest pain Chest pain at rest Chronic cough Chronic narcotic use Closed fracture of proximal end of fibula COPD (chronic obstructive pulmonary disease) Current use of insulin Delayed surgical wound healing Diabetes Dislocation of hip, right, closed Emphysema of lung Gastroesophageal reflux disease High cholesterol Hip osteoarthritis History of left heart catheterization (LHC) (~07/05/21) History of pulmonary embolism History of revision of total replacement of right hip joint History of stress test Hypertension Irregular heart beat Irritable bowel Morbid obesity Myocardial infarct On home oxygen therapy RACHEL (obstructive sleep apnea) Pancreatitis Peptic ulcer Preoperative cardiovascular examination Presence of stent in coronary artery (~02/07/11) Pulmonary hypertension Schizoaffective disorder Schizophrenia Sleep apnea Smoker Spinal stenosis of lumbar region at multiple levels Stage 2 moderate COPD by GOLD classification Suspected COVID-19 virus infection Takotsubo cardiomyopathy Thyroid nodule Tobacco abuse Ulcer Vitamin D deficiency Home Medications atorvastatin 80 mg tablet 80 mg PO QHS cholesterol 08/22/15 [History Last Taken 08/03/21] pregabalin 75 mg capsule 75 mg PO TID PAIN 03/08/18 [History Last Taken 08/03/21] risperidone 4 mg tablet 4 mg PO QHS sleep 03/08/18 [History Last Taken 08/04/21] trazodone 100 mg tablet 200 mg PO QHS PRN Insomnia 03/08/18 [History Last Taken 08/04/21] mirabegron 25 mg tablet,extended release 24 hr 25 mg PO DAILY bladder 11/20/18 [History Last Taken 08/03/21] apixaban 5 mg tablet 5 mg PO BID blood thinner 05/02/19 [History Last Taken 08/03/21] buspirone 30 mg tablet 30 mg PO BID anxiety 06/27/19 [History Last Taken 08/03/21] tiotropium bromide 2.5 mcg/actuation mist for inhalation 2 puff inhalation DAILY sob #4 grams 09/30/19 [Rx Last Taken 08/05/21] clopidogrel 75 mg tablet 75 mg PO DAILY blood thinner 07/31/20 [History Last Taken 08/03/21] albuterol sulfate 90 mcg/actuation aerosol inhaler 2 puff IH Q4H PRN PRN SOB &/or Wheezing 11/14/20 [History Last Taken 08/05/21] escitalopram oxalate 20 mg tablet 20 mg PO DAILY mental health 11/14/20 [History Last Taken 08/03/21] fluticasone propionate 230 mcg-salmeterol 21 mcg/actuation HFA inhaler (Advair HFA) 2 puff inhalation BID SOB 11/14/20 [History Last Taken 08/05/21] fluticasone propionate 50 mcg/actuation nasal spray,suspension 1 spray intranasal BID allergies 11/14/20 [History Last Taken 08/03/21] promethazine 25 mg tablet 25 mg PO BID PRN PRN Nausea 11/14/20 [History Last Taken 08/04/21] potassium chloride 20 mEq tablet,extended release (K-Tab) 40 meq PO DAILY potassium replacement 01/13/21 [History Last Taken 08/05/21] albuterol sulfate 2.5 mg/3 mL (0.083 %) solution for nebulization 2.5 mg (3 mL) inhalation Q4H PRN Sob &/Or Wheezing #180 mL 05/25/21 [Rx Last Taken Unknown] hydrocodone-acetaminophen 5-325mg 5mg-325mg 1 tab PO Q4H PRN PRN Pain 2 days #10 TABLETS 05/26/21 [Rx Last Taken 08/05/21] montelukast 10 mg tablet 10 mg PO DAILY pain 06/29/21 [History Last Taken 08/03/21] pantoprazole 40 mg tablet,delayed release 40 mg PO BID gerd 08/05/21 [History Last Taken 08/03/21] sucralfate 1 gram tablet 1 g PO Q6H stomach 08/05/21 [History Last Taken 08/04/21] metoprolol succinate 25 mg tablet,extended release 24 hr 25 mg PO DAILY #60 tabs 08/06/21 [Rx Last Taken Unknown] doxycycline hyclate 100 mg tablet 100 mg PO BID #20 tabs 12/16/21 [Rx Last Taken Unknown] prednisone 10 mg tablet 10 mg PO QDAY #30 tabs 12/16/21 [Rx Last Taken Unknown] hydrocodone-acetaminophen 5-325mg 5mg-325mg 1 tab PO Q6H PRN pain 3 days #10 tabs 01/21/22 [Rx Last Taken Unknown] Allergy/AdvReac Type Severity Reaction Status Date / Time tramadol [From Ultram] Allergy Severe Blisters, Verified 01/21/22 12:33 itching amoxicillin Allergy Itching Verified 01/21/22 12:33 erythromycin base Allergy Unknown Verified 01/21/22 12:33 methadone Allergy Itching Verified 01/21/22 12:33 metolazone Allergy Unknown Verified 01/21/22 12:33 Penicillins Allergy Hives Verified 01/21/22 12:33 Sulfa (Sulfonamide Allergy Hives Verified 01/21/22 12:33 Antibiotics) clarithromycin [From Biaxin] AdvReac Nausea Verified 01/21/22 12:33 ibuprofen AdvReac 3 BLEEDING Verified 01/21/22 12:33 ULCERS morphine AdvReac HEADACHE Verified 01/21/22 12:33 oxycodone [From Percocet] AdvReac Itching Verified 01/21/22 12:33 Family History Mother Heart disease Cancer uterine Father Hypertension Arthritis Hyperlipemia Grandmother Breast cancer Heart disease Grandfather Heart disease Sister Hypertension Surgical History History of appendectomy History of carpal tunnel surgery of left wrist History of cholecystectomy History of gastric bypass History of gastric bypass History of right ankle surgery history of right hip surgery History of tonsillectomy Presence of coronary angioplasty implant and graft (~02/07/11) Social History household members: none Smoking Status: Current every day smoker tobacco type: cigarettes alcohol intake: never substance use type: does not use caffeine: Yes (occasional) what type of physical activity do you participate in: none ROS ROS ED Constitutional Constitutional ED: Denies chills, fever(s), subjective, sweats or weight loss Eyes Eyes: Denies blurry vision or change in vision ENT ENT ED: Denies ear pain or sore throat Cardiovascular Cardiovascular: Denies chest pain, palpitations or racing heartbeat Respiratory/Chest Respiratory/Chest: Denies cough, dyspnea or sputum Gastrointestinal Gastrointestinal: Denies melena Genitourinary Genitourinary ED: Denies hematuria Musculoskeletal Musculoskeletal: Reports other Details: Left shoulder pain ; Denies arthralgias, back pain, myalgias or neck pain Integumentary Denies abscess Neurologic Neurologic: Denies headache(s), paresthesias or weakness Psychiatric Psychiatric: Denies anxiety, depression, suicidal ideation or suicidal thoughts Endocrine Endocrinology: Denies polydipsia or polyuria Hematologic/Lymphatic Hematologic/Lymphatic: Reports easy bleeding and easy bruising; Denies anemia or lymphadenopathy EXAM Physical Exam Const Vital Signs: 01/21/22 12:29 Temperature 97.8 F Temperature Source Oral Pulse Rate 90 Respiratory Rate 18 Blood Pressure 106/71 Blood Pressure Mean 82 Pulse Ox 98 Oxygen Delivery Method Room Air Positive well nourished General Appearance ED: NAD Eyes PERRL and EOMs intact bilaterally Chest Wall inspection of chest normal and palpation of chest normal Resp normal respiratory effort and clear to auscultation bilaterally Auscultation: Negative for rales, rhonchi or wheezes Cardio regular rate and regular rhythm Extremity Extremity Narrative: Tenderness to palpation over the left shoulder girdle. No obvious deformities. No rash, ecchymosis. Patient states he is unable to lift her left arm. Left arm is neurovascular intact. Brisk up refill to all 5 fingers. MDM MDM MDM Narrative Medical decision making narrative: Patient presents via EMS for pain in her shoulder for 3 years which is worse over the last 3 days. She has not followed up with her surgeon from the past because she states he does not want to see him again. She has not made follow-up with her PCP. She did make an appointment for Dr. Yung's office she reports. She has no new injury that she knows of. She reports to me that she cannot move her arm because it is too painful but was able to get dressed today and states she just simply darted with her right arm than her left arm. There is no obvious deformities on examination. There is no overt neurovascular findings are abnormal. I will obtain a left shoulder x-ray and give her 1 Sabula here. Review of her [facility] report shows that she gets Sabula on a regular basis. She does not have an open prescription but this is a chronic issue. I did x-rays of the left shoulder which on my interpretation show chronic degenerative changes and partial subluxation. The radiologist interpretation agrees. I spoke with Dr. Cohn who is familiar with the patient. He recommended putting her in a sling and given her some Sabula until she can make a follow-up appointment with Dr. Yung. Patient was prescribed 10 Sabula. Sling was placed. She is discharged stable condition. Impression: 1. Chronic left shoulder pain 2. Subluxation left shoulder Lab Data Attestation: I reviewed the patient's lab results. Discharge Plan Triage Chief Complaint: Upper Extremity Injury ED Provider: Олег Champion Dx/Rx/DC Orders Instructions: ED Shoulder Pain, Uncertain Cause Prescriptions: New hydrocodone-acetaminophen 5-325 mg tablet 1 tab PO Q6H PRN (Reason: pain) 3 Days Qty: 10 0RF No Action albuterol sulfate 2.5 mg /3 mL (0.083 %) solution for nebulization 2.5 mg inhalation Q4H PRN (Reason: Sob &/Or Wheezing) Qty: 180 3RF montelukast 10 mg tablet 10 mg PO DAILY atorvastatin 80 MG tablet 80 mg PO QHS Label Comments: cholesterol risperidone 4 mg tablet 4 mg PO QHS Label Comments: Take 1 tablet by mouth at bedtime trazodone 100 MG tablet 200 mg PO QHS PRN (Reason: Insomnia) pregabalin 75 MG capsule 75 mg PO TID buspirone 30 mg tablet 30 mg PO BID mirabegron 25 MG tablet extended release 24 hr 25 mg PO DAILY apixaban 5 MG tablet 5 mg PO BID Rx Instructions: clopidogrel 75 mg tablet 75 mg PO DAILY promethazine 25 mg Tablet 25 mg PO BID PRN PRN (Reason: Nausea) escitalopram oxalate 20 mg Tablet 20 mg PO DAILY Advair HFA 230-21 mcg/actuation Hfa Aerosol Inhaler 2 puff INHALATION BID albuterol sulfate 1 PUFF HFA aerosol inhaler 2 puff IH Q4H PRN PRN (Reason: SOB &/or Wheezing ) fluticasone propionate 50 mcg/actuation [place],Suspension 1 spray INTRANASAL BID potassium chloride [K-Tab] 20 mEq tablet extended release 40 meq PO DAILY hydrocodone-acetaminophen 1 TABLET tablet 1 tab PO Q4H PRN PRN (Reason: Pain) 2 Days Qty: 10 0RF sucralfate 1 gram tablet 1 g PO Q6H pantoprazole 40 mg tablet,delayed release (DR/EC) 40 mg PO BID metoprolol succinate 25 mg tablet extended release 24 hr 25 mg PO DAILY Qty: 60 0RF tiotropium bromide 2.5 mcg/actuation mist 2 puff INHALATION DAILY Qty: 4 3RF prednisone 10 mg tablet 10 mg PO QDAY Qty: 30 0RF Rx Instructions: take 4 tabs for three days, then 3 tabs for three days, then 2 tabs for three days, then 1 tab for 3 days doxycycline hyclate 100 mg tablet 100 mg PO BID Qty: 20 0RF Primary Care Provider: Carlos Monae Chi Referrals: Pop Yung MD [Med Staff - Active Staff] - Keep Maurice appointment Carlos Monae Chi, MD [Primary Care Provider] - Disposition Disposition: Home, Self Care
[2022-01-21] MEDS: HYDROcodone Bitartrate/Apap 5/325 Tablet PO (12:54)
--- NOTE | 2022-01-21 13:00 | RAD_ITS ---
STUDY: X-RAY - LEFT SHOULDER REASON FOR EXAM: Female, 56 years old. Pain TECHNIQUE: 4 view(s) of the shoulder. COMPARISON: None. FINDINGS: There is moderate degenerative arthrosis of the glenohumeral articulation. There is widening of the AC joint, likely due to previous resection of the distal clavicle. Normal acromion. There is a spur on the undersurface of the acromion which could cause impingement in the right clinical setting. Normal humeral head and visualized proximal humerus. The soft tissue structures are unremarkable. Normal visualized pulmonary apex. RAD/Shoulder min 2 Views IMPRESSION: Moderate glenohumeral arthrosis with mild inferior subluxation of the humeral head relative to the glenoid Widening of the AC joint likely due to resection of the distal clavicle Spur on the undersurface of the acromion could cause impingement in the right clinical setting Electronically Signed: Destin Terry MD at 13:17 EST ,
[2022-01-21 14:51] VITALS: BP 121/85; PULSE 88; RESP 18; O2SAT 97
== END 2022-01-21 15:17 | disposition home or self-care (01) ==
PROVIDERS: Emergency Provider Student in an Organized Health Care Education/Training Program; PCP Family Medicine Geriatric Medicine; Visit Provider Student in an Organized Health Care Education/Training Program
DX: S43.002A Unspecified subluxation of left shoulder joint, initial encounter (principal); J43.9 Emphysema, unspecified; E11.9 Type 2 diabetes mellitus without complications; I10 Essential (primary) hypertension; E78.00 Pure hypercholesterolemia, unspecified; I25.10 Atherosclerotic heart disease of native coronary artery without angina pectoris; G89.29 Other chronic pain; Z79.899 Other long term (current) drug therapy; Z79.84 Long term (current) use of oral hypoglycemic drugs
CPT/HCPCS: 73030; 99285

== ENCOUNTER 2022-01-25 11:24 | Emergency (ER) | payer MEDICARE, SELFPAY ==
[2022-01-25 11:25] VITALS: BP 179/90; PULSE 52; RESP 18; TEMP 35.7; O2SAT 98; BMI 40.0
--- NOTE | 2022-01-25 12:04 | EDS_ITS ---
HPI History of Present Illness Chief Complaint: Upper Extremity Injury Detail of Chief Complaint: Left shoulder pain Informant: patient Onset/Context/Timing Current Severity: Moderate Maximum Severity: Severe Narrative Narrative: Patient presents with worsened left shoulder pain. She has a history of chronic left shoulder and arm pain. Over the past 5 or 6 days she had increased pain. She was seen in the ER on Monday and had x-rays that showed mild subluxation and degenerative changes. The physician who saw her on that day spoke Dr. Swenson who knows the patient well. He asked that the patient be given Shingleton until she can be seen in follow-up and place her in a splint. Patient states that she is now out of Shingleton. She has an appointment to be seen next Monday by the nurse practitioner. She is complaining of increased pain. [facility] Medical History Anemia Asthma Atherosclerotic heart disease of [place] coronary artery without angina pectoris Benign essential hypertension BiPAP (biphasic positive airway pressure) dependence Bleeding tendency Blood loss anemia CAD (coronary artery disease) Cardiac dysrhythmia Chest pain Chest pain at rest Chronic cough Chronic narcotic use Closed fracture of proximal end of fibula COPD (chronic obstructive pulmonary disease) Current use of insulin Delayed surgical wound healing Diabetes Dislocation of hip, right, closed Emphysema of lung Gastroesophageal reflux disease High cholesterol Hip osteoarthritis History of left heart catheterization (LHC) (~07/05/21) History of pulmonary embolism History of revision of total replacement of right hip joint History of stress test Hypertension Irregular heart beat Irritable bowel Morbid obesity Myocardial infarct On home oxygen therapy RACHEL (obstructive sleep apnea) Pancreatitis Peptic ulcer Preoperative cardiovascular examination Presence of stent in coronary artery (~02/07/11) Pulmonary hypertension Schizoaffective disorder Schizophrenia Sleep apnea Smoker Spinal stenosis of lumbar region at multiple levels Stage 2 moderate COPD by GOLD classification Suspected COVID-19 virus infection [place] cardiomyopathy Thyroid nodule Tobacco abuse Ulcer Vitamin D deficiency Home Medications atorvastatin 80 mg tablet 80 mg PO QHS cholesterol 08/22/15 [History Last Taken 08/03/21] pregabalin 75 mg capsule 75 mg PO TID PAIN 03/08/18 [History Last Taken 08/03/21] risperidone 4 mg tablet 4 mg PO QHS sleep 03/08/18 [History Last Taken 08/04/21] trazodone 100 mg tablet 200 mg PO QHS PRN Insomnia 03/08/18 [History Last Taken 08/04/21] mirabegron 25 mg tablet,extended release 24 hr 25 mg PO DAILY bladder 11/20/18 [History Last Taken 08/03/21] apixaban 5 mg tablet 5 mg PO BID blood thinner 05/02/19 [History Last Taken 08/03/21] buspirone 30 mg tablet 30 mg PO BID anxiety 06/27/19 [History Last Taken 08/03/21] tiotropium bromide 2.5 mcg/actuation mist for inhalation 2 puff inhalation DAILY sob #4 grams 09/30/19 [Rx Last Taken 08/05/21] clopidogrel 75 mg tablet 75 mg PO DAILY blood thinner 07/31/20 [History Last Taken 08/03/21] albuterol sulfate 90 mcg/actuation aerosol inhaler 2 puff IH Q4H PRN PRN SOB &/or Wheezing 11/14/20 [History Last Taken 08/05/21] escitalopram oxalate 20 mg tablet 20 mg PO DAILY mental health 11/14/20 [History Last Taken 08/03/21] fluticasone propionate 230 mcg-salmeterol 21 mcg/actuation HFA inhaler (Advair HFA) 2 puff inhalation BID SOB 11/14/20 [History Last Taken 08/05/21] fluticasone propionate 50 mcg/actuation nasal spray,suspension 1 spray intranasal BID allergies 11/14/20 [History Last Taken 08/03/21] promethazine 25 mg tablet 25 mg PO BID PRN PRN Nausea 11/14/20 [History Last Taken 08/04/21] potassium chloride 20 mEq tablet,extended release (K-Tab) 40 meq PO DAILY potassium replacement 01/13/21 [History Last Taken 08/05/21] albuterol sulfate 2.5 mg/3 mL (0.083 %) solution for nebulization 2.5 mg (3 mL) inhalation Q4H PRN Sob &/Or Wheezing #180 mL 05/25/21 [Rx Last Taken Unknown] hydrocodone-acetaminophen 5-325mg 5mg-325mg 1 tab PO Q4H PRN PRN Pain 2 days #10 TABLETS 05/26/21 [Rx Last Taken 08/05/21] montelukast 10 mg tablet 10 mg PO DAILY pain 06/29/21 [History Last Taken 08/03/21] pantoprazole 40 mg tablet,delayed release 40 mg PO BID gerd 08/05/21 [History Last Taken 08/03/21] sucralfate 1 gram tablet 1 g PO Q6H stomach 08/05/21 [History Last Taken 08/04/21] metoprolol succinate 25 mg tablet,extended release 24 hr 25 mg PO DAILY #60 tabs 08/06/21 [Rx Last Taken Unknown] doxycycline hyclate 100 mg tablet 100 mg PO BID #20 tabs 12/16/21 [Rx Last Taken Unknown] prednisone 10 mg tablet 10 mg PO QDAY #30 tabs 12/16/21 [Rx Last Taken Unknown] hydrocodone-acetaminophen 5-325mg 5mg-325mg 1 tab PO Q6H PRN pain 3 days #10 tabs 01/21/22 [Rx Last Taken Unknown] hydrocodone-acetaminophen 5-325mg 5mg-325mg 1 tab PO Q6H PRN pain 5 days #14 tabs 01/25/22 [Rx Last Taken Unknown] Allergy/AdvReac Type Severity Reaction Status Date / Time tramadol [From Ultram] Allergy Severe Blisters, Verified 01/25/22 11:29 itching amoxicillin Allergy Itching Verified 01/25/22 11:29 erythromycin base Allergy Unknown Verified 01/25/22 11:29 methadone Allergy Itching Verified 01/25/22 11:29 metolazone Allergy Unknown Verified 01/25/22 11:29 Penicillins Allergy Hives Verified 01/25/22 11:29 Sulfa (Sulfonamide Allergy Hives Verified 01/25/22 11:29 Antibiotics) clarithromycin [From Biaxin] AdvReac Nausea Verified 01/25/22 11:29 ibuprofen AdvReac 3 BLEEDING Verified 01/25/22 11:29 ULCERS morphine AdvReac HEADACHE Verified 01/25/22 11:29 oxycodone [From Percocet] AdvReac Itching Verified 01/25/22 11:29 Family History Mother Heart disease Cancer uterine Father Hypertension Arthritis Hyperlipemia Grandmother Breast cancer Heart disease Grandfather Heart disease Sister Hypertension Surgical History History of appendectomy History of carpal tunnel surgery of left wrist History of cholecystectomy History of gastric bypass History of gastric bypass History of right ankle surgery history of right hip surgery History of tonsillectomy Presence of coronary angioplasty implant and graft (~02/07/11) Social History household members: none Smoking Status: Current every day smoker tobacco type: cigarettes alcohol intake: never substance use type: does not use caffeine: Yes (occasional) what type of physical activity do you participate in: none ROS ROS ED Constitutional Constitutional ED: Denies chills or fever(s) Eyes Eyes: Denies change in vision or discharge from eye(s) ENT ENT ED: Denies discharge from eye(s), rhinorrhea or sore throat Cardiovascular Cardiovascular: Denies chest pain or palpitations Respiratory/Chest Respiratory/Chest: Denies cough or dyspnea Gastrointestinal Gastrointestinal: Denies abdominal pain, diarrhea, nausea or vomiting Genitourinary Genitourinary ED: Denies dysuria Musculoskeletal Musculoskeletal: Reports extremity pain; Denies back pain Integumentary Denies Abrasions or rash Neurologic Neurologic: Denies headache(s) or weakness Psychiatric Psychiatric: Denies anxiety or depression Endocrine Endocrinology: Denies polydipsia or polyuria Allergic/Immunologic Allergic/Immunologic ED: Denies lip swelling or urticaria EXAM Physical Exam Const Vital Signs: 01/25/22 11:25 01/25/22 11:25 Temperature 96.2 F L Temperature Source Temporal Pulse Rate 52 L Respiratory Rate 18 Blood Pressure 179/90 H Blood Pressure Mean 119 Pulse Ox 98 Oxygen Delivery Method Room Air Positive well nourished and well developed General Appearance ED: well developed HEENT Reports moist mucous membranes Eyes PERRL and EOMs intact bilaterally Neck full ROM Chest Wall inspection of chest normal and palpation of chest normal Resp normal respiratory effort and clear to auscultation bilaterally Cardio regular rate and regular rhythm GI non-tender Extremity Extremity Narrative: Left arm held in a sling. Diffuse tenderness throughout the left shoulder, posterior greater than anterior. No obvious deformity. Good distal pulses and strong hand grasp. Neuro oriented x3 Neuro Narrative: Decreased range of motion left shoulder secondary to pain. MDM MDM MDM Narrative Medical decision making narrative: She was given a tab of Shing[place]. Left shoulder x-rays obtained. Radiography Diagnostic Testing: Radiology Impression Shoulder X-Ray 01/25/22 12:15 IMPRESSION: 1. severe degenerative narrowing of the glenohumeral articulation. Electronically Signed: Saúl Valdez MD at 12:57 EST , Treatment and Re-Evaluation Narrative: Left shoulder x-ray per mitral rotation reveals no acute findings. Chronic changes noted. No evidence of subluxation or dislocation. [facility] report was reviewed. I will write her another short prescription for Shingleton. She is to follow-up with orthopedics on Monday as scheduled. Discharge Plan Triage Chief Complaint: Upper Extremity Injury ED Provider: Breann Nguyễn Dx/Rx/DC Orders Clinical Impression: Left shoulder strain Instructions: ED Shoulder Sprain Prescriptions: New hydrocodone-acetaminophen 5-325 mg tablet 1 tab PO Q6H PRN (Reason: pain) 5 Days Qty: 14 0RF No Action albuterol sulfate 2.5 mg /3 mL (0.083 %) solution for nebulization 2.5 mg inhalation Q4H PRN (Reason: Sob &/Or Wheezing) Qty: 180 3RF montelukast 10 mg tablet 10 mg PO DAILY atorvastatin 80 MG tablet 80 mg PO QHS Label Comments: cholesterol risperidone 4 mg tablet 4 mg PO QHS Label Comments: Take 1 tablet by mouth at bedtime trazodone 100 MG tablet 200 mg PO QHS PRN (Reason: Insomnia) pregabalin 75 MG capsule 75 mg PO TID buspirone 30 mg tablet 30 mg PO BID mirabegron 25 MG tablet extended release 24 hr 25 mg PO DAILY apixaban 5 MG tablet 5 mg PO BID Rx Instructions: clopidogrel 75 mg tablet 75 mg PO DAILY promethazine 25 mg Tablet 25 mg PO BID PRN PRN (Reason: Nausea) escitalopram oxalate 20 mg Tablet 20 mg PO DAILY Advair HFA 230-21 mcg/actuation Hfa Aerosol Inhaler 2 puff INHALATION BID albuterol sulfate 1 PUFF HFA aerosol inhaler 2 puff IH Q4H PRN PRN (Reason: SOB &/or Wheezing ) fluticasone propionate 50 mcg/actuation [place],Suspension 1 spray INTRANASAL BID potassium chloride [K-Tab] 20 mEq tablet extended release 40 meq PO DAILY hydrocodone-acetaminophen 1 TABLET tablet 1 tab PO Q4H PRN PRN (Reason: Pain) 2 Days Qty: 10 0RF sucralfate 1 gram tablet 1 g PO Q6H pantoprazole 40 mg tablet,delayed release (DR/EC) 40 mg PO BID metoprolol succinate 25 mg tablet extended release 24 hr 25 mg PO DAILY Qty: 60 0RF hydrocodone-acetaminophen 5-325 mg tablet 1 tab PO Q6H PRN (Reason: pain) 3 Days Qty: 10 0RF tiotropium bromide 2.5 mcg/actuation mist 2 puff INHALATION DAILY Qty: 4 3RF prednisone 10 mg tablet 10 mg PO QDAY Qty: 30 0RF Rx Instructions: take 4 tabs for three days, then 3 tabs for three days, then 2 tabs for three days, then 1 tab for 3 days doxycycline hyclate 100 mg tablet 100 mg PO BID Qty: 20 0RF Primary Care Provider: Janel Taylor Referrals: Janel Taylor MD [Primary Care Provider] - Activity Restrictions/Additional Instructions: Follow-up with orthopedics on Monday as scheduled. Disposition Disposition: Home, Self Care
[2022-01-25] MEDS: HYDROcodone Bitartrate/Apap 5/325 Tablet PO ×2 (12:12→15:18)
--- NOTE | 2022-01-25 12:15 | RAD_ITS ---
STUDY: X-RAY - LEFT SHOULDER REASON FOR EXAM: Female, 56 years old. CONTINUED PAIN, SEEN MONDAY, NO NEW COMPLAINTS TECHNIQUE: 3 view(s) of the shoulder. COMPARISON: X-ray of the left shoulder dated January 21, 2022 FINDINGS: There is severe degenerative narrowing of the glenohumeral articulation. Normal acromioclavicular joint. Normal acromion. Normal humeral head and visualized proximal humerus. The soft tissue structures are unremarkable. There is no demonstrated fracture. Normal visualized pulmonary apex. RAD/Shoulder min 2 Views IMPRESSION: 1. severe degenerative narrowing of the glenohumeral articulation. Electronically Signed: Saúl Valdez MD at 12:57 EST ,
--- NOTE | 2022-01-25 15:16 | CM.ED ---
Addendum entered by Beatriz Macario 01/25/22 15:41: Antonina RN stated that sample distributor Judith said that patient voiced she has no ride home now. MAURO called [facility] Transportation and they will check on transportation. MAURO met with patient. Her friend is sick and unable to transport her home. She said that a person from the waiting room agreed to take her home. Patient voiced that she feels safe and has no concerns regarding the person from the waiting room taking her home. Stanford from Transportation called and Erik would be able to take patient home. However, SW went to update patient and she was gone. Beatriz ENRIQUEZ Original Note: MAURO Note Referral Source: MD Referral Reason: Transportation Home Per MD patient came by squad. No transport home. No [facility] van drivers today. MAURO called [employer] and attempted to speak to transportation but no one available. Went to voice mail and this casualty underwriter did not leave message. MAURO spoke to patient. Her friend, Lenny, who is often her transportation provider broke his phone yesterday so she has no way to contact him to get transportation. Patient has no transportation vouchers through [employer] and has no medicare anth transportation benefit. Patient was able to call neighbor who then located Lenny and he agreed to come to the ED to pharmacy picking tech patient. Thus, patient has ride home. MAURO updated MD, health record technician and RN. Plan: Patient secured a ride home. Beatriz ENRIQUEZ
== END 2022-01-25 15:22 | disposition home or self-care (01) ==
PROVIDERS: Emergency Provider Emergency Medicine; PCP Family Medicine; Visit Provider Emergency Medicine
DX: S46.912A Strain of unspecified muscle, fascia and tendon at shoulder and upper arm level, left arm, initial encounter (principal); J43.9 Emphysema, unspecified; E66.01 Morbid (severe) obesity due to excess calories; E11.9 Type 2 diabetes mellitus without complications; G89.29 Other chronic pain; X58.XXXA Exposure to other specified factors, initial encounter; E78.00 Pure hypercholesterolemia, unspecified; I10 Essential (primary) hypertension; I25.10 Atherosclerotic heart disease of native coronary artery without angina pectoris; G47.33 Obstructive sleep apnea (adult) (pediatric); I25.2 Old myocardial infarction; F17.210 Nicotine dependence, cigarettes, uncomplicated; Z99.81 Dependence on supplemental oxygen; Z96.641 Presence of right artificial hip joint
CPT/HCPCS: 73030; 99285; J7030

== ENCOUNTER → 2022-03-08 | Outpatient (CLI) | payer MEDICARE, SELFPAY ==
--- NOTE | 2022-03-08 06:38 | MRI_ITS ---
STUDY: MRI LEFT SHOULDER REASON FOR EXAM: Female, 56 years old. SHOULDER PAIN, ROTATOR CUFF SYNDROME TECHNIQUE: Standardized fat and water weighted pulse sequences were obtained in all 3 orthogonal planes. COMPARISON: X-ray the left shoulder dated January 25, 2022. FINDINGS: There is moderate tendon thickening and intrasubstance signal abnormality of the supraspinatus, but without a tear or retraction. Moderate to large size glenohumeral joint effusion is present, with some capsular synovitis and several loose bodies. The glenohumeral joint space is also moderately narrowed with cortical osteophyte formation of the medial aspect of the humeral head. There is also diffuse spurring of the glenoid labrum in addition to a small linear tear in the posterior inferior aspect of the labrum. Normal infraspinatus tendon. Normal subscapularis tendon. Normal teres minor tendon. Normal supraspinatus muscle. Normal infraspinatus muscle. Normal subscapularis muscle. Normal teres minor muscle. Normal biceps labral complex. Normal intracapsular long biceps tendon. Normal labrum. Normal capsulo- ligamentous complex. Normal rotator interval. Normal acromioclavicular articulation. There is a Type II morphology (curved), with a neutral orientation. There is moderate fluid distention of the subacromial bursa, consistent with moderate subacromial-subdeltoid bursitis. Normal visualized coracohumeral and coracoacromial ligaments. Normal quadrilateral space. Normal axillary space. Normal deltoid muscle. Normal trapezius muscle. MRI/Upper Ext Joint Only(Routine) IMPRESSION: 1. Moderate to significant tendinosis 2. Moderate to large size glenohumeral joint effusion with capsular synovitis and loose bodies 3. Diffuse degeneration and partial tearing of the glenoid labrum 4. Moderate osteoarthritis of the lateral humeral articulation Electronically Signed: Saúl Valdez MD at 15:26 EST ,
== END | disposition home or self-care (01) ==
LOC: MRI 06:31
PROVIDERS: PCP Family Medicine; Referring Provider Physician Assistant Surgical; Visit Provider Physician Assistant Surgical
DX: M75.22 Bicipital tendinitis, left shoulder (principal)
CPT/HCPCS: 73221

== ENCOUNTER 2022-04-01 18:32 | Emergency (ER) | payer MEDICARE, SELFPAY ==
[2022-04-01 18:35] VITALS: BP 153/85; PULSE 62; RESP 18; TEMP 36.4; O2SAT 98; BMI 37.5
--- NOTE | 2022-04-01 19:53 | EDS_ITS ---
HPI HPI - Fall History of Present Illness Chief Complaint: Fall Informant: patient Narrative Narrative: Patient had a mechanical trip and fall at home. She is wearing a boot on her left foot and this caught the ground. She fell directly on her right knee. She has been able to put weight on it but it is sore. Ever since the impact she is sore in the right knee and a little bit on her right lower back. She has back pain commonly but this is a little bit more than normal. No numbness tingling weakness. She never hit her head. She has been eating and drinking. This happened approximately 7 hours ago. The biggest reason she came is that she has an abrasion below her right knee that just keeps oozing. Is not bleeding heavily but it does ooze and she is on both Eliquis and Plavix. [facility] Medical History Anemia Asthma Atherosclerotic heart disease of [place] coronary artery without angina pectoris Benign essential hypertension BiPAP (biphasic positive airway pressure) dependence Bleeding tendency Blood loss anemia CAD (coronary artery disease) Cardiac dysrhythmia Chest pain Chest pain at rest Chronic cough Chronic narcotic use Closed fracture of proximal end of fibula COPD (chronic obstructive pulmonary disease) Current use of insulin Delayed surgical wound healing Diabetes Dislocation of hip, right, closed Emphysema of lung Gastroesophageal reflux disease High cholesterol Hip osteoarthritis History of left heart catheterization (LHC) (~07/05/21) History of pulmonary embolism History of revision of total replacement of right hip joint History of stress test Hypertension Irregular heart beat Irritable bowel Morbid obesity Myocardial infarct On home oxygen therapy RACHEL (obstructive sleep apnea) Pancreatitis Peptic ulcer Preoperative cardiovascular examination Presence of stent in coronary artery (~02/07/11) Pulmonary hypertension Schizoaffective disorder Schizophrenia Sleep apnea Smoker Spinal stenosis of lumbar region at multiple levels Stage 2 moderate COPD by GOLD classification Suspected COVID-19 virus infection Takotsubo cardiomyopathy Thyroid nodule Tobacco abuse Ulcer Vitamin D deficiency Home Medications atorvastatin 80 mg tablet 80 mg PO QHS cholesterol 08/22/15 [History Last Taken 08/03/21] pregabalin 75 mg capsule 75 mg PO TID PAIN 03/08/18 [History Last Taken 08/03/21] risperidone 4 mg tablet 4 mg PO QHS sleep 03/08/18 [History Last Taken 08/04/21] trazodone 100 mg tablet 200 mg PO QHS PRN Insomnia 03/08/18 [History Last Taken 08/04/21] mirabegron 25 mg tablet,extended release 24 hr 25 mg PO DAILY bladder 11/20/18 [History Last Taken 08/03/21] apixaban 5 mg tablet 5 mg PO BID blood thinner 05/02/19 [History Last Taken 08/03/21] buspirone 30 mg tablet 30 mg PO BID anxiety 06/27/19 [History Last Taken 08/03/21] tiotropium bromide 2.5 mcg/actuation mist for inhalation 2 puff inhalation DAILY sob #4 grams 09/30/19 [Rx Last Taken 08/05/21] clopidogrel 75 mg tablet 75 mg PO DAILY blood thinner 07/31/20 [History Last Taken 08/03/21] escitalopram oxalate 20 mg tablet 20 mg PO DAILY mental health 11/14/20 [History Last Taken 08/03/21] fluticasone propionate 230 mcg-salmeterol 21 mcg/actuation HFA inhaler (Advair HFA) 2 puff inhalation BID SOB 11/14/20 [History Last Taken 08/05/21] fluticasone propionate 50 mcg/actuation nasal spray,suspension 1 spray intranasal BID allergies 11/14/20 [History Last Taken 08/03/21] promethazine 25 mg tablet 25 mg PO BID PRN PRN Nausea 11/14/20 [History Last Taken 08/04/21] potassium chloride 20 mEq tablet,extended release (K-Tab) 40 meq PO DAILY potassium replacement 01/13/21 [History Last Taken 08/05/21] albuterol sulfate 2.5 mg/3 mL (0.083 %) solution for nebulization 2.5 mg (3 mL) inhalation Q4H PRN Sob &/Or Wheezing #180 mL 05/25/21 [Rx Last Taken Unknown] hydrocodone-acetaminophen 5-325mg 5mg-325mg 1 tab PO Q4H PRN PRN Pain 2 days #10 TABLETS 05/26/21 [Rx Last Taken 08/05/21] montelukast 10 mg tablet 10 mg PO DAILY pain 06/29/21 [History Last Taken 08/03/21] pantoprazole 40 mg tablet,delayed release 40 mg PO BID gerd 08/05/21 [History [place] st Taken 08/03/21] sucralfate 1 gram tablet 1 g PO Q6H stomach 08/05/21 [History Last Taken 08/04/21] metoprolol succinate 25 mg tablet,extended release 24 hr 25 mg PO DAILY #60 tabs 08/06/21 [Rx Last Taken Unknown] hydrocodone-acetaminophen 5-325mg 5mg-325mg 1 tab PO Q6H PRN pain 3 days #10 tabs 01/21/22 [Rx Last Taken Unknown] hydrocodone-acetaminophen 5-325mg 5mg-325mg 1 tab PO Q6H PRN pain 5 days #14 tabs 01/25/22 [Rx Last Taken Unknown] doxycycline hyclate 100 mg tablet 100 mg PO BID #20 tabs 02/08/22 [Rx Last Taken Unknown] albuterol sulfate 90 mcg/actuation aerosol inhaler 2 puff inhalation Q4H PRN PRN SOB &/or Wheezing #8.5 grams 03/03/22 [Rx Last Taken Unknown] prednisone 10 mg tablet 10 mg PO QDAY #30 tabs 03/03/22 [Rx Last Taken Unknown] Allergy/AdvReac Type Severity Reaction Status Date / Time tramadol [From Ultram] Allergy Severe Blisters, Verified 04/01/22 18:36 itching amoxicillin Allergy Itching Verified 04/01/22 18:36 erythromycin base Allergy Unknown Verified 04/01/22 18:36 methadone Allergy Itching Verified 04/01/22 18:36 metolazone Allergy Unknown Verified 04/01/22 18:36 Penicillins Allergy Hives Verified 04/01/22 18:36 Sulfa (Sulfonamide Allergy Hives Verified 04/01/22 18:36 Antibiotics) clarithromycin [From Biaxin] AdvReac Nausea Verified 04/01/22 18:36 ibuprofen AdvReac 3 BLEEDING Verified 04/01/22 18:36 ULCERS morphine AdvReac HEADACHE Verified 04/01/22 18:36 oxycodone [From Percocet] AdvReac Itching Verified 04/01/22 18:36 Family History Mother Heart disease Cancer uterine Father Hypertension Arthritis Hyperlipemia Grandmother Breast cancer Heart disease Grandfather Heart disease Sister Hypertension Surgical History History of appendectomy History of carpal tunnel surgery of left wrist History of cholecystectomy History of gastric bypass History of gastric bypass History of right ankle surgery history of right hip surgery History of tonsillectomy Presence of coronary angioplasty implant and graft (~02/07/11) Social History household members: none Smoking Status: Current every day smoker tobacco type: cigarettes alcohol intake: never substance use type: does not use caffeine: Yes (occasional) what type of physical activity do you participate in: none ROS ROS ED Constitutional Constitutional ED: Denies chills or fever(s) Eyes Eyes: Denies change in vision ENT ENT ED: Denies rhinorrhea or sore throat Cardiovascular Cardiovascular: Denies chest pain or palpitations Respiratory/Chest Respiratory/Chest: Denies cough or dyspnea Gastrointestinal Gastrointestinal: Denies nausea or vomiting Genitourinary Genitourinary ED: Denies hematuria Musculoskeletal Musculoskeletal: Reports arthralgias and back pain; Denies neck pain Integumentary Reports Abrasions Neurologic Neurologic: Denies headache(s) Endocrine Endocrinology: Denies polydipsia or polyuria Hematologic/Lymphatic Hematologic/Lymphatic: Denies lymphadenopathy EXAM Physical Exam Narrative Exam Narrative: Patient is awake alert no acute distress. She is sitting comfortably in bed. HEENT shows no sign of head trauma or injury or pallor. Mucous membranes are moist Neck shows no pain with palpation or range of motion Lungs are actually clear. No wheezing heard. She does have history of chronic lung disease. Heart is regular. Has a rate of about 70. I do not hear any ectopy. Abdomen is obese but otherwise benign. Back shows some right paraspinal tenderness but no step-off or isolated bony tenderness. No rashes or contusions. She states she did not hit this area. The only area that hit was her knee. Extremities show stable pelvis. No tenderness along the left leg but she does have a splint on the left ankle that was not removed. She has an abrasion over the tibial tuberosity on the right. There is minimal oozing. There is no effusion at all at this time. Extensor mechanism is intact. There is soreness but no isolated tenderness. No deformity. Patient is alert oriented and appropriate. Const Vital Signs: 04/01/22 18:35 04/01/22 19:33 04/01/22 21:32 Temperature 97.5 F L Temperature Source Temporal Pulse Rate 62 Respiratory Rate 18 22 H Respiratory Effort Normal Non-Labored Respiratory Depth Normal Respiratory Pattern Normal Blood Pressure 153/85 H Blood Pressure Mean 107 Pulse Ox 98 Oxygen Delivery Method Room Air MDM MDM MDM Narrative Medical decision making narrative: My independent interpretation the patient's x-rays of the right knee and lumbar spine show arthritic and degenerative changes. I do not see any acute fracture dislocation or compression fractures. Final reading by radiology were similar. Patient had Gelfoam gauze and Robbi wrap placed. I have rechecked this. There is no bleeding through. Plan will be to get her home. Plan was made to provide discharge. Patient states that she wanted to go and she left prior to her discharge papers. Radiography Diagnostic Testing: Clinical Impression(s) from Imaging Studies Knee X-Ray 04/01/22 20:05 IMPRESSION: Osteopenia without fracture or dislocation. No major interval change. Electronically Signed: Nathaniel Venegas DO at 20:28 EST Reading Location ID and State: [facility] / [place] Tel [phone], Service support , Lumbar Spine X-Ray 04/01/22 20:05 IMPRESSION: Degenerative changes of the lumbar spine without acute abnormality or major interval change. Electronically Signed: Nathaniel Venegas DO at 20:35 EST Reading Location ID and State: [facility] / [place] Tel [phone], Service support , Discharge Plan Triage Chief Complaint: Fall ED Provider: Jaspreet Arora Dx/Rx/DC Orders Clinical Impression: Fall at home, Contusion of knee, right, Abrasion of knee, right, Medication induced coagulopathy, Lumbar strain Prescriptions: No Action albuterol sulfate 2.5 mg /3 mL (0.083 %) solution for nebulization 2.5 mg inhalation Q4H PRN (Reason: Sob &/Or Wheezing) Qty: 180 3RF montelukast 10 mg tablet 10 mg PO DAILY atorvastatin 80 MG tablet 80 mg PO QHS Label Comments: cholesterol risperidone 4 mg tablet 4 mg PO QHS Label Comments: Take 1 tablet by mouth at bedtime trazodone 100 MG tablet 200 mg PO QHS PRN (Reason: Insomnia) pregabalin 75 MG capsule 75 mg PO TID buspirone 30 mg tablet 30 mg PO BID mirabegron 25 MG tablet extended release 24 hr 25 mg PO DAILY apixaban 5 MG tablet 5 mg PO BID Rx Instructions: clopidogrel 75 mg tablet 75 mg PO DAILY promethazine 25 mg Tablet 25 mg PO BID PRN PRN (Reason: Nausea) escitalopram oxalate 20 mg Tablet 20 mg PO DAILY Advair HFA 230-21 mcg/actuation Hfa Aerosol Inhaler 2 puff INHALATION BID fluticasone propionate 50 mcg/actuation [place],Suspension 1 spray INTRANASAL BID potassium chloride [K-Tab] 20 mEq tablet extended release 40 meq PO DAILY hydrocodone-acetaminophen 1 TABLET tablet 1 tab PO Q4H PRN PRN (Reason: Pain) 2 Days Qty: 10 0RF sucralfate 1 gram tablet 1 g PO Q6H pantoprazole 40 mg tablet,delayed release (DR/EC) 40 mg PO BID metoprolol succinate 25 mg tablet extended release 24 hr 25 mg PO DAILY Qty: 60 0RF hydrocodone-acetaminophen 5-325 mg tablet 1 tab PO Q6H PRN (Reason: pain) 3 Days Qty: 10 0RF hydrocodone-acetaminophen 5-325 mg tablet 1 tab PO Q6H PRN (Reason: pain) 5 Days Qty: 14 0RF tiotropium bromide 2.5 mcg/actuation mist 2 puff INHALATION DAILY Qty: 4 3RF doxycycline hyclate 100 mg tablet 100 mg PO BID Qty: 20 0RF prednisone 10 mg tablet 10 mg PO QDAY Qty: 30 0RF Rx Instructions: take 4 tabs for three days, then 3 tabs for three days, then 2 tabs for three days, then 1 tab for 3 days albuterol sulfate 90 mcg/actuation HFA aerosol inhaler 2 puff inhalation Q4H PRN PRN (Reason: SOB &/or Wheezing ) Qty: 8.5 11RF Primary Care Provider: Janel Taylor Referrals: Janel Taylor MD [Primary Care Provider] - Disposition Disposition: Home, Self Care Discharge Date/Time: 04/01/22 21:32
[2022-04-01] MEDS: Gelfoam 12-7 MM Sponge (1) 1 EACH TOPICAL (19:59)
[2022-04-01] MEDS: HYDROcodone Bitartrate/Apap 5/325 Tablet PO (20:01)
--- NOTE | 2022-04-01 20:05 | RAD_ITS ---
STUDY: X-RAY - LUMBAR SPINE REASON FOR EXAM: Female, 56 years old. All. Lower back pain. TECHNIQUE: 3 view(s) of the lumbar spine were obtained. COMPARISON: March 17, 2021 FINDINGS: There is straightening of the normal lumbar lordosis. Dextroscoliosis with a convexity at L1. There is a normal alignment of the vertebrae. There is multilevel endplate spondylosis of the lumbar vertebrae. There is multi-level degenerative disc disease with multi-level disc space narrowing. There is no evidence of acute fracture or loss of vertebral axial height. There are surgical clips in left upper quadrant. Stable right artificial hip. RAD/Lumbar Spine 2 or 3 Views IMPRESSION: Degenerative changes of the lumbar spine without acute abnormality or major interval change. Electronically Signed: Nathaniel Venegas DO at 20:35 EST ,
--- NOTE | 2022-04-01 20:05 | RAD_ITS ---
STUDY: X-RAY - RIGHT KNEE REASON FOR EXAM: Female, 56 years old. Fall at 1000 hours. Right knee pain and abrasion. Bleeding. TECHNIQUE: 4 view(s) of the knee. COMPARISON: Right knee, January 14, 2021. FINDINGS: There is demineralization of the visualized distal femur. There is demineralization of the tibia and fibula. Normal proximal tibiofibular articulation. There is no acute fracture, dislocation or destructive osseous pathology. Normal medial femorotibial compartment. Normal lateral femorotibial compartment. Normal patellofemoral articulation. There is no demonstrated joint effusion. The soft tissue structures are unremarkable. RAD/Knee 4 or More Views IMPRESSION: Osteopenia without fracture or dislocation. No major interval change. Electronically Signed: Nathaniel Venegas DO at 20:28 EST ,
--- NOTE | 2022-04-01 21:30 | ED.RN ---
PT STATES THAT SHE IS FINE AT THIS TIME AND WANTS TO GO HOME. PT STATES THAT SHE DOES NOT WANT TO WAIT FOR HER DISCHARGE PAPERWORK.
[2022-04-01 21:32] VITALS: RESP 22
== END 2022-04-01 21:32 | disposition home or self-care (01) ==
LOC: ED 20:01
PROVIDERS: Emergency Provider Emergency Medicine; PCP Family Medicine; Visit Provider Emergency Medicine
DX: S80.01XA Contusion of right knee, initial encounter (principal); J43.9 Emphysema, unspecified; E11.9 Type 2 diabetes mellitus without complications; I25.10 Atherosclerotic heart disease of native coronary artery without angina pectoris; E78.00 Pure hypercholesterolemia, unspecified; S39.012A Strain of muscle, fascia and tendon of lower back, initial encounter; W01.0XXA Fall on same level from slipping, tripping and stumbling without subsequent striking against object, initial encounter; I10 Essential (primary) hypertension; R05.9 Cough, unspecified
CPT/HCPCS: 71046; 72100; 73564; 94060; 94726; 94729; 99285

== ENCOUNTER → 2022-04-01 | Outpatient (CLI) | payer MEDICARE, SELFPAY ==
--- NOTE | 2022-04-01 13:35 | RAD_ITS ---
STUDY: X-RAY CHEST REASON FOR EXAM: Female, 56 years old. Shortness of breath for 3 weeks. Cough. History of COPD. TECHNIQUE: PA and lateral views of the chest. COMPARISON: August 05, 2021. FINDINGS: The lungs are clear and expanded. There is no demonstrated pleural abnormality. Normal size heart. Normal mediastinum and alden. Normal visualized pulmonary arteries. There is mild atherosclerotic calcification of the aortic arch with tortuosity. Degenerative changes and mild levoscoliosis of the thoracic spine. Normal visualized ribs, clavicles, and shoulders. There is no demonstrated abnormality of the visualized soft tissue structures of the upper abdomen. RAD/Chest PA and Lateral IMPRESSION: Degenerative changes, as described above. No demonstrated acute cardiopulmonary process. No major interval change. Electronically Signed: Nathaniel Venegas DO at 17:31 EST ,
--- NOTE | 2022-04-02 07:42 | PFT ---
INTRODUCTION: The patient is a 56-year-old female that presents for pulmonary function studies secondary to a diagnosis of COPD. Respiratory therapy reported good patient effort. Bronchodilators were used during testing. INTERPRETATION: Forced expiration spirometry demonstrates the presence of a severe large airways obstructive ventilatory defect. There was no significant response to aerosolized bronchodilators. Spirograms are of fair quality but do not plateau indicating slow emptying of the lungs. Body plethysmography was performed and demonstrated an elevated RV to 180% of predicted, indicative of underlying air trapping. Diffusing capacity by single breath CO is reduced to 54% of predicted. IMPRESSION: Irreversible severe large airways obstructive ventilatory defect with associated air trapping and symmetric reduction in diffusing capacity.
== END | disposition home or self-care (01) ==
PROVIDERS: PCP Family Medicine; Visit Provider Nurse Practitioner Acute Care
DX: R05.9 Cough, unspecified (principal); J44.9 Chronic obstructive pulmonary disease, unspecified
CPT/HCPCS: 71046; 94060; 94726; 94729

== ENCOUNTER → 2022-04-19 | Outpatient (CLI) | payer MEDICARE, SELFPAY ==
[2022-04-19 11:15] VITALS: PULSE 62; PULSE 67; PULSE 68; PULSE 74; PULSE 75; PULSE 76; PULSE 77; PULSE 79; O2SAT 97; O2SAT 98
--- NOTE | 2022-04-19 11:23 | CPS ---
Patient stated that she has oxygen at home, and is supposed to wear 3L but does not. Patient came not wearing any oxygen and was 98% on room air. Patient's sat's maintained 97-98% on room air for remainder of test. Patient had to take frequent breaks and sit for periods of time during the test.
--- NOTE | 2022-04-19 15:51 | PCM.PSN.6M ---
PSN 6 Minute Walk Test 6 Minute Walk Test 6 Minute Walk Test: 6 Minute Walk Test PSN:6-Minute Walk Test Start: 04/19/22 11:20 Freq: Status: Active Protocol: [id number].6MINW Document 04/19/22 11:15 [place] (Rec: 04/19/22 11:25 [id number]) 6 Minute Walk Test Date Performed 04/19/22 Time Performed 11:15 Height 5 ft 3 in Weight: 96.162 kg Weight in Pounds 212.[address]: Rosanna Hampton [employer]INE[employer] FIO2 (% Oxygen) 21 Assistive device used: Walker Pre-test Oxygen Delivery Method Room Air Pulse Ox (%) 98 Pulse Rate (60-100 beats/min) 68 Dyspnea Nishi Scale (0-10) 0 Exertion Nishi Scale (6-20) 6 1st minute Oxygen Delivery Method Room Air Pulse Ox (%) 97 Pulse Rate (60-100 beats/min) 62 Number of Rests Taken 1 2nd minute Oxygen Delivery Method Bi-pap Pulse Ox (%) 98 Pulse Rate (60-100 beats/min) 74 Number of Rests Taken 1 3rd minute Oxygen Delivery Method Room Air Pulse Ox (%) 98 Pulse Rate (60-100 beats/min) 79 Number of Rests Taken 1 4th minute Oxygen Delivery Method Room Air Pulse Ox (%) 98 Pulse Rate (60-100 beats/min) 75 5th minute Oxygen Delivery Method Room Air Pulse Ox (%) 98 Pulse Rate (60-100 beats/min) 76 Number of Rests Taken 1 6th minute Oxygen Delivery Method Room Air Pulse Ox (%) 98 Pulse Rate (60-100 beats/min) 77 Number of Rests Taken 1 Post-test Oxygen Delivery Method Room Air Pulse Ox (%) 98 Pulse Rate (60-100 beats/min) 67 Dyspnea Nishi Scale (0-10) 4 Exertion Nishi Scale (6-20) 16 Full Laps Walked 6 Partial Lap, Number of Tiles Walked 0 Total Distance Walked (ft) 354 04/19/22 11:23 Cardiopulmonary Services by Sheyla Jin Patient stated that she has oxygen at home, and is supposed to wear 3L but does not. Patient came not wearing any oxygen and was 98% on room air. Patient's sat's maintained 97-98% on room air for remainder of test. Patient had to take frequent breaks and sit for periods of time during the test. Initialized on 04/19/22 11:23 - END OF NOTE Interpretation Interpretation: The patient was able to ambulate only 354 feet over the course of 6 minutes on room air with the assistance of a walker and 5 breaks. The patient experienced no significant desaturation or tachycardia. These findings are consistent with a musculoskeletal limitation exercise tolerance. Recommendations Recommendations: The patient requires no supplemental oxygen at this time. However, sensitivity is severely limited given the number of breaks in mental distance traveled. May need to repeat testing in the future.
== END | disposition home or self-care (01) ==
LOC: PSN 11:00
PROVIDERS: PCP Family Medicine; Referring Provider Nurse Practitioner Acute Care; Visit Provider Nurse Practitioner Acute Care
DX: J44.9 Chronic obstructive pulmonary disease, unspecified (principal)
CPT/HCPCS: 94618

== ENCOUNTER → 2022-06-24 | Outpatient (CLI) | payer MEDICARE, SELFPAY ==
--- NOTE | 2022-06-24 | LES_PTH ---
PATIENT: TALAT HAN [facility] U#:[id number] AGE/SX: 56/F ROOM: RE06/24/[address]: Dr. Janel Taylor MD : 1965 BED: DIS: 06/24/2022 SPEC #: [id number] RECD: 06/24/22 12:39 STATUS: ESTEFANY MOMIN #: [id number] KAYLI: 06/24/22 00:[address]: Janel Taylor DEPT: SURGICAL PATHOLOGY RECD BY: Idris Fontanez Tissues: Skin of perineum and lower extremities, NOS Procedures: Special Stain Group I Surgery Specimen Level IV GMS Stain (control) HEADER OPERATION: 2.0 mm punch biopsy PRE-OP DIAGNOSIS: Two shallow ulcers in left perineal area, possible HPV? TISSUE SUBMITTED: 2 mm punch of edge of larger ulcer MICROSCOPIC DIAGNOSIS Perineal lesion, punch biopsy: Mild acute dermatitis. Minimal epidermal fibroplasia with focal parakeratosis and hyperkeratosis. No evidence of malignancy. No evidence of fungal organisms. See comment. AM:tera 06/27/2022 COMMENT GMS stain with matched control was used in the evaluation of this case. MICROSCOPIC DESCRIPTION Slides are reviewed. GROSS DESCRIPTION Received in fixative is one container labeled with the patient's name and designated perineal biopsy. The specimen consists of a punch biopsy of steiner-white skin measuring 0.2 cm in diameter and 0.3 cm in length. The specimen is totally submitted in one cassette. / SJ:tera 06/24/2022 TC:2 CPT: 77680, 04047
== END | disposition home or self-care (01) ==
LOC: LABSPEC 10:50
PROVIDERS: PCP Family Medicine; Visit Provider Family Medicine
DX: N90.89 Other specified noninflammatory disorders of vulva and perineum (principal); L30.9 Dermatitis, unspecified; R23.4 Changes in skin texture; L57.0 Actinic keratosis
CPT/HCPCS: 88305; 88312

== ENCOUNTER → 2022-07-15 | Outpatient (CLI) | payer MEDICARE, SELFPAY ==
[2022-07-15 18:29] LABS: Syphilis Antibodies Non-reactive
[2022-07-17 10:07] LABS: HSV 2 IgG 4.62 index (0.00-0.90)
[2022-07-23 20:07] LABS: Age Gdln ACOG Testing 30-65 (.); HPV APTIMA, High Risk Negative (Negative)
[2022-07-25 16:41] LABS: HPV Reflexed? YES, CHARGE PATIENT
== END | disposition home or self-care (01) ==
LOC: BFHLAB 16:29
PROVIDERS: PCP Family Medicine; Referring Provider Family Medicine; Visit Provider Family Medicine
DX: L98.499 Non-pressure chronic ulcer of skin of other sites with unspecified severity (principal); Z12.4 Encounter for screening for malignant neoplasm of cervix
CPT/HCPCS: 36415; 86695; 86696; 86780; 87624; 88175; G0145

== ENCOUNTER 2022-07-22 09:52 | Outpatient (RCR) | payer MEDICARE, SELFPAY ==
[2022-07-22 10:05] VITALS: BP 124/74; PULSE 77; TEMP 35.2; BMI 38.0
--- NOTE | 2022-07-22 13:39 | PCM.WC.HP ---
History of Present Illness Date of Service: 07/22/22 Chief Complaint: nonhealing ulcers of left medial thigh, perineum History of Wound: Crystal is a 56-year-old patient with history of diabetic neuropathy, bipolar, schizoaffective disorder, depression, hypertension, cardiac disease, obesity, excessive tobacco use that presents to the wound center today for treatment and evaluation of ulcers of her left medial thigh and perineum that have been present for approx. 3 months. Patient has known problems healing and has been seen at the wound center for previous non-healing wounds of her lower extremities. She continues to smoke and is smoking approximately 2 packs/day. She does not know the cause of the ulcers of her left thigh and perineum but thinks it may have been from an abrasion from sliding to get out of a chair. She has tried treatment with Nystatin powder, Nystatin cream and Calmoseptine but they have not improved. Dr. Taylor performed a punch biopsy on 06/24/22 and this did not show any sign of malignancy and showed changes associated with a chronic wound and no evidence of fungal infection. She has been unable to keep this area covered due to dressings not staying in place. She does have DM and this is controlled, most recent A1C was 6.8% on 11/26/21. 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 This recurred after treatment with antiviral a few weeks prior. The area is very painful per patient and the ulcer of the perineum drains moderate to heavy and the thigh drains light to moderate. She is incontinent of urine. She denies fever, chills, increased erythema, odor. COUNT INCLUDES THE [facility] Medical History Anemia Asthma Atherosclerotic heart disease of [place] coronary artery without angina pectoris Benign essential hypertension BiPAP (biphasic positive airway pressure) dependence Bleeding tendency Blood loss anemia CAD (coronary artery disease) Cardiac dysrhythmia Chest pain Chest pain at rest Chronic cough Chronic narcotic use Closed fracture of proximal end of fibula COPD (chronic obstructive pulmonary disease) Current use of insulin Delayed surgical wound healing Diabetes Dislocation of hip, right, closed Emphysema of lung Gastroesophageal reflux disease High cholesterol Hip osteoarthritis History of left heart catheterization (LHC) (~07/05/21) History of pulmonary embolism History of revision of total replacement of right hip joint History of stress test Hypertension Irregular heart beat Irritable bowel Morbid obesity Myocardial infarct On home oxygen therapy RACHEL (obstructive sleep apnea) Pancreatitis Peptic ulcer Preoperative cardiovascular examination Presence of stent in coronary artery (~02/07/11) Pulmonary hypertension Schizoaffective disorder Schizophrenia Sleep apnea Smoker Spinal stenosis of lumbar region at multiple levels Stage 2 moderate COPD by GOLD classification Suspected COVID-19 virus infection Takotsubo cardiomyopathy Thyroid nodule Tobacco abuse Ulcer Vitamin D deficiency Home Medications atorvastatin 80 mg tablet 80 mg PO QHS cholesterol 08/22/15 [History Last Taken 08/03/21] pregabalin 75 mg capsule 75 mg PO TID PAIN 03/08/18 [History Last Taken 08/03/21] risperidone 4 mg tablet 4 mg PO QHS sleep 03/08/18 [History Last Taken 08/04/21] trazodone 100 mg tablet 200 mg PO QHS PRN Insomnia 03/08/18 [History Last Taken 08/04/21] buspirone 30 mg tablet 30 mg PO BID anxiety 06/27/19 [History Last Taken 08/03/21] clopidogrel 75 mg tablet 75 mg PO DAILY blood thinner 07/31/20 [History Last Taken 08/03/21] escitalopram oxalate 20 mg tablet 20 mg PO DAILY mental health 11/14/20 [History Last Taken 08/03/21] fluticasone propionate 230 mcg-salmeterol 21 mcg/actuation HFA inhaler (Advair HFA) 2 puff inhalation BID SOB 11/14/20 [History Last Taken 08/05/21] promethazine 25 mg tablet 25 mg PO BID PRN PRN Nausea 11/14/20 [History Last Taken 08/04/21] potassium chloride 20 mEq tablet,extended release (K-Tab) 40 meq PO DAILY potassium replacement 01/13/21 [History Last Taken 08/05/21] albuterol sulfate 2.5 mg/3 mL (0.083 %) solution for nebulization 2.5 mg (3 mL) inhalation Q4H PRN Sob &/Or Wheezing #180 mL 05/25/21 [Rx Last Taken Unknown] pantoprazole 40 mg tablet,delayed release 40 mg PO BID gerd 08/05/21 [History Last Taken 08/03/21] sucralfate 1 gram tablet 1 g PO Q6H stomach 08/05/21 [History Last Taken 08/04/21] metoprolol succinate 25 mg tablet,extended release 24 hr 25 mg PO DAILY #60 tabs 08/06/21 [Rx Last Taken Unknown] albuterol sulfate 90 mcg/actuation aerosol inhaler 2 puff inhalation Q4H PRN PRN SOB &/or Wheezing #8.5 grams 03/03/22 [Rx Last Taken Unknown] fluticasone propionate 50 mcg/actuation nasal spray,suspension 1 spray intranasal BID allergies #16 grams 06/29/22 [Rx Last Taken Unknown] montelukast 10 mg tablet 10 mg PO DAILY pain #90 tabs 06/29/22 [Rx Last Taken Unknown] amlodipine 10 mg tablet 10 mg PO DAILY 07/22/22 [History Last Taken Unknown] apixaban 5 mg tablet (Eliquis) 5 mg PO BID 07/22/22 [History Last Taken Unknown] dicyclomine 20 mg tablet 20 mg PO 4X/DAY 07/22/22 [History Last Taken Unknown] ferrous sulfate 325 mg (65 mg iron) tablet 325 mg PO QODAY 07/22/22 [History Last Taken Unknown] furosemide 20 mg tablet (Lasix) 20 mg PO DAILY 07/22/22 [History Last Taken Unknown] glimepiride 2 mg tablet 2 mg PO BID 07/22/22 [History Last Taken Unknown] insulin glargine 100 unit/mL (3 mL) subcutaneous pen (Lantus Solostar U-100 Insulin) 40 unit subcut BID 07/22/22 [History Last Taken Unknown] insulin lispro 100 unit/mL subcutaneous pen (Humalog KwikPen (U-100) Insulin) 10 unit subcut TID 07/22/22 [History Last Taken Unknown] lamotrigine 25 mg tablet 25 mg PO QODAY 07/22/22 [History Last Taken Unknown] lisinopril 20 mg tablet 20 mg PO QHS 07/22/22 [History Last Taken Unknown] mirabegron 25 mg tablet,extended release 24 hr (Myrbetriq) 25 mg PO DAILY 07/22/22 [History Last Taken Unknown] omeprazole 20 mg capsule,delayed release 20 mg PO DAILY 07/22/22 [History Last Taken Unknown] ondansetron 4 mg disintegrating tablet 4 mg PO Q6H PRN Outbreak 07/22/22 [History Last Taken Unknown] sucralfate 1 gram tablet (Carafate) 1 g PO 4X/DAY 07/22/22 [History Last Taken Unknown] tiotropium bromide 2.5 mcg/actuation mist for inhalation (Spiriva Respimat) 2 puff inhalation DAILY 07/22/22 [History Last Taken Unknown] tizanidine 4 mg capsule 4 mg PO Q8H PRN Muscle Spasm 07/22/22 [History Last Taken Unknown] Allergy/AdvReac Type Severity Reaction Status Date / Time tramadol [From Ultram] Allergy Severe Blisters, Verified 06/29/22 13:13 itching amoxicillin Allergy Itching Verified 06/29/22 13:13 erythromycin base Allergy Unknown Verified 06/29/22 13:13 methadone Allergy Itching Verified 06/29/22 13:13 metolazone Allergy Unknown Verified 06/29/22 13:13 Penicillins Allergy Hives Verified 06/29/22 13:13 Sulfa (Sulfonamide Allergy Hives Verified 06/29/22 13:13 Antibiotics) clarithromycin [From Biaxin] AdvReac Nausea Verified 06/29/22 13:13 ibuprofen AdvReac 3 BLEEDING Verified 06/29/22 13:13 ULCERS morphine AdvReac HEADACHE Verified 06/29/22 13:13 oxycodone [From Percocet] AdvReac Itching Verified 06/29/22 13:13 Family History Mother Heart disease Cancer uterine Father Hypertension Arthritis Hyperlipemia Grandmother Breast cancer Heart disease Grandfather Heart disease Sister Hypertension Surgical History History of appendectomy History of carpal tunnel surgery of left wrist History of cholecystectomy History of gastric bypass History of gastric bypass History of right ankle surgery history of right hip surgery History of tonsillectomy Presence of coronary angioplasty implant and graft (~02/07/11) Social History household members: none Smoking Status: Current every day smoker tobacco type: cigarettes alcohol intake: never substance use type: does not use caffeine: Yes (occasional) what type of physical activity do you participate in: none ROS Constitutional Constitutional: Denies chills, fatigue or fever(s) Eyes Eyes: Denies blurry vision, change in vision or loss of vision ENT HEENT: Denies dysphagia, hearing loss or sore throat Cardiovascular Cardiovascular: Denies chest pain, edema or palpitations Respiratory/Chest Respiratory/Chest: Denies dry cough, dyspnea, dyspnea on exertion, productive cough or wheezing Gastrointestinal Gastrointestinal: Denies diarrhea, nausea or vomiting Genitourinary Genitourinary: Denies dysuria or polyuria Musculoskeletal Musculoskeletal: Denies arthralgias, joint stiffness or muscle weakness Integumentary Integumentary: Reports erythema and wounds Neurologic Neurologic: Denies dizziness, memory loss or weakness Psychiatric Psychiatric: Denies homicidal ideation or suicidal ideation Endocrine Endocrinology: Denies polydipsia, polyphagia or polyuria Hematologic/Lymphatic Hematologic/Lymphatic: Denies easy bleeding or easy bruising Allergic/Immunologic Allergic/Immunologic: Denies throat swelling, tongue swelling or urticaria Vital Signs Vital Signs Vital Signs: 07/22/22 10:05 Temperature 95.4 F L Temperature Source Temporal Pulse Rate 77 Blood Pressure 124/74 H Blood Pressure Mean 90 Blood Pressure Source Monitor Blood Pressure Position Sitting Blood Pressure Location Left Arm Weight Weight: 97.522 kg Body Mass Index (BMI) 38.0 Physical Exam Const alert, oriented x3 and no apparent distress General Appearance: cooperative and comfortable HEENT normocephalic and head/scalp atraumatic Resp normal respiratory effort Effort and Inspection: able to speak in complete sentences Cardio regular rate and regular rhythm Skin Skin Narrative: right groin with vesicular rash Wounds: wounds noted Wound Narrative: as in clinical panel Psych mental status grossly normal, thought process normal, cooperative and affect normal Debridement Note Debridement Note Wound debrided: Left medial posterior thigh Laterality: Left Wound Grade/Stage: Stage 3 Type of Debridement: Excisional debridement Anesthesia Used: 4% Lidocaine Solution, 5% Lidocaine Gel and Cetacaine Depth: Down to and including healthy tissue and in the subcutaneous layer Percentage of wound debrided: 100 Instrument Used: 7mm curette Tissue Removed: Yellow slough, devitalized tissue Severity: Fat Layer Exposed Amount of bleeding with debridement: Mild Bleeding Controlled with: Compression and gauze Patient tolerated procedure: Patient tolerated procedure well Post-Debridement Measurements and Additional Note: Post-Debridement Measurements/Treatment WOOD - Nurse 1 - General Ulcer Assessment Start: 07/22/22 10:04 Freq: Status: Active Protocol: LISY Activity Type Activity Date Activity User E-sign Co-sign Detail Recorded Client Recorded Date Recorded By Document 07/22/22 10:05 [facility] [id number] 07/22/22 10:21 [facility] 07/22/22 10:05 - Today's Visit Information Type of service Initial Visit Arrival Mode Ambulatory, Walker Transfer Assistance None Patient Identification Verified (Name & Yes ) Patient Requires Transmission-Based No Precautions Height and Weight Height 5 ft 3 in Weight 97.522 kg Weight in Pounds 215.0 lbs Body Mass Index (BMI) 38.0 BMI Classification Obese BSA - [place] 1.99 Vital Signs Temperature (97.8 F-99.1 F) 95.4 F L Temperature Source Temporal Pulse Rate (60-100) 77 Pulse Location Monitor Blood Pressure (90/60-120/80) 124/74 H Blood Pressure Mean 90 Source Monitor Position Sitting Blood Pressure Location Left Arm History Since Last Visit- (Skip if this is Patient's initial visit) Left Footwear Regular Shoe Right Footwear Regular Shoe Pain Scale: 0-10 Numeric Is Patient Pain Free? Yes Communication Assessment Preferred language M[place]ese Ios Programmer Required No Able to Read Yes Able to Write Yes Communication Tools None Right Hearing Abillity Normal Left Hearing Abillity Normal Visual Assistive Devices Glasses Teaching Assessment Preferences Verbal,Written, Audio/Visual, Demonstration Barriers to Learning None Readiness To Learn Excellent Willingness to Engage in Self Management High Activies Readiness to Engage in Self Management High Activities Anxiety Level Calm Cooperation Cooperative Perception Coherent Interest in Health Problem Asks Questions Education Importance Acknowledges Need Does Patient Smoke tobacco or other No substances Smoking Status Current every day smoker Is Patient Diabetic Yes Functional Assessment Recent Decline in Ability to Perform Denies Any Declines Culture/Congregational/Oxidation Engineer Cultural/Congregational Needs that may affect No Treatment Plan Teaching: Wound Center *Welcome to the Wound Center -Person Taught Patient -Teaching Method Discussion -Response to teaching Verbalize understanding Welcome to the Wound Care Center Maltese - Nurse 1 - General Ulcer Measurement Start: 07/22/22 10:04 Freq: Status: Active Protocol: Activity Type Activity Date Activity User E-sign Co-sign Detail Recorded Client Recorded Date Recorded By Document 07/22/22 10:05 [facility] [id number] 07/22/22 10:21 [facility] 07/22/22 10:05 Wound Center Nurse 1 #11- MED POST THIGH -Combined with other wound No -Current Size (cm) - Length 1.7 -Current Size (cm) - Width 0.3 -Current Size (cm) - Depth 0.2 -Total Square Cm 0.51 -Date of Last Picture (Recall this 07/22/22 field) -Photo Taken Yes -Epithelialization None Present -Tunneling No -Undermining/Tunneling No -Circular Undermining No -Exudate Amt Medium -Exudate Type Serosanguineous -Wound Margin Distinct, Outline Attached -Granulation Amt Medium (34-66%) -Granulation Quality Red -Slough/Fibrin Yes -Necrosis Amt Medium (34-66%) -Necrotic Tissue Type Adherent Slough -Texture (Adriane-wound Skin Appearance) Assessed -Moisture (Adriane-wound Skin Appearance) Assessed -Color (Adriane-wound Skin Appearance) Assessed -Temperature (Adriane-wound Skin No Abnormality Appearance) (Pt Warm) -Tenderness on Palpation (Adriane-wound Yes Skin Appearance) -Ulcer Cleansing Soap and Water -Foul Odor after Cleansing No -Anesthetic Used 5% Lidocaine Gel #10- L BUTTOCK -Combined with other wound No -Current Size (cm) - Length 3.1 -Current Size (cm) - Width 1.5 -Current Size (cm) - Depth 0.4 -Total Square Cm 4.65 -Date of Last Picture (Recall this 07/22/22 field) -Photo Taken Yes -Epithelialization None Present -Tunneling No -Undermining/Tunneling No -Circular Undermining No -Exudate Amt Medium -Exudate Type Serosanguineous -Wound Margin Distinct, Outline Attached -Granulation Amt Medium (34-66%) -Granulation Quality Red -Slough/Fibrin Yes -Necrosis Amt Medium (34-66%) -Necrotic Tissue Type Adherent Slough -Texture (Adriane-wound Skin Appearance) Assessed -Moisture (Adriane-wound Skin Appearance) Assessed -Color (Adriane-wound Skin Appearance) Assessed -Temperature (Adriane-wound Skin No Abnormality Appearance) (Pt Warm) -Tenderness on Palpation (Adriane-wound Yes Skin Appearance) -Ulcer Cleansing Soap and Water -Foul Odor after Cleansing No -Anesthetic Used 5% Lidocaine Gel WC - Nurse 2 - General Ulcer CM Notes Start: 07/22/22 10:04 Freq: Status: Active Protocol: Activity Type Activity Date Activity User E-sign Co-sign Detail Recorded Client Recorded Date Recorded By Document 07/22/22 11:17 [id number] 07/22/22 11:27 LACIE 07/22/22 11:17 Wound Center Nurse 2 #11- MED POST THIGH -Time 11:25 -Correct Patient Yes -Correct Side, Site, Position Yes -Correct Procedure Yes -Procedure Performed Yes -Type of Procedure Debridement -Clinical Debridement Subcutaneous -Tissue Removed Subcutaneous -Post Debridement (cm) - Length 1.6 -Post Debridement (cm) - Width 2.5 -Post Debridement (cm) - Depth 0.1 -Total Square (Post) (cm) 4.00 -Area of Debridement (cm) - Length 1.6 -Area of Debridement (cm) - Width 2.5 -Total Square (Area) (cm) 4.00 -Tunneling No -Undermining/Tunneling No -Circular Undermining No -Wound/Ulcer Outcome Not Healed -Ulcer Cleansing Rinsed/ Irrigated with Saline -Foul Odor after Cleansing No -Bioengineered Tissue No -Bleeding Controlled with Pressure -Treatment Response Procedure Tolerated Well -Offloading No -Debridement - Subq, 1st 20sq cm No #10- L BUTTOCK -Time 11:26 -Correct Patient Yes -Correct Side, Site, Position Yes -Correct Procedure Yes -Procedure Performed Yes -Type of Procedure Debridement -Clinical Debridement Subcutaneous -Tissue Removed Subcutaneous -Post Debridement (cm) - Length 3.1 -Post Debridement (cm) - Width 2.2 -Post Debridement (cm) - Depth 0.2 -Total Square (Post) (cm) 6.82 -Area of Debridement (cm) - Length 3.1 -Area of Debridement (cm) - Width 2.2 -Total Square (Area) (cm) 6.82 -Tunneling No -Undermining/Tunneling No -Circular Undermining No -Wound/Ulcer Outcome Not Healed -Ulcer Cleansing Rinsed/ Irrigated with Saline -Foul Odor after Cleansing No -Bioengineered Tissue No -Bleeding Controlled with Pressure -Treatment Response Procedure Tolerated Well -Offloading No -Debridement - Subq, 1st 20sq cm Yes Pain Scale: 0-10 Numeric Is Patient Pain Free? Yes WC - Nurse 3 - General Ulcer D/C NN Start: 07/22/22 10:04 Freq: Status: Active Protocol: Activity Type Activity Date Activity User E-sign Co-sign Detail Recorded Client Recorded Date Recorded By Document 07/22/22 11:55 RB [id number] 07/22/22 11:56 RB 07/22/22 11:55 Wound Care Center Nurse 3 #11- MED POST THIGH -Ulcer Cleansing Rinsed/ Irrigated with Saline -Primary Dressing Applied Fibracol Plus 4x4,Mepilex Border -Fibracol Plus 4x4 1 -Mepilex Border 1 #10- L BUTTOCK -Primary Dressing Applied Mepilex Border -Other Dressing fibracol plus -Mepilex Border 1 Treatment Response Procedure Tolerated Well Pain Scale: 0-10 Numeric Is Patient Pain Free? Yes Teaching: Wound Center Dressing Your Wound -Person Taught Patient -Teaching Method Discussion, Demonstration -Response to teaching Verbalize understanding WC - Visit Discharge Discharge Condition Stable Ambulatory Status Ambulatory, Walker Transportation Private Auto Medication Reconcilliation completed & No provided to patient/care provider Clinical Summary of Care Provided Yes Additional Wound Wound debrided: left buttock Laterality: Left Wound Grade/Stage: Stage 3 Type of Debridement: Excisional debridement Anesthesia Used: 4% Lidocaine Solution, 5% Lidocaine Gel and Cetacaine Depth: Down to and including healthy tissue and in the subcutaneous layer Percentage of wound debrided: 100 Instrument Used: 7mm curette Tissue Removed: Yellow slough, devitalized tissue Severity: Fat Layer Exposed Amount of bleeding with debridement: Mild Bleeding Controlled with: Compression and gauze Patient tolerated procedure: Patient tolerated procedure well Assessment/Plan Assessment/Plan (1) Morbid obesity due to excess calories: CODE(S): E66.01 - Morbid (severe) obesity due to excess calories (2) Type 2 diabetes mellitus: CODE(S): E11.9 - Type 2 diabetes mellitus without complications QUALIFIERS: Diabetes mellitus complication status: with neurologic complications Diabetes mellitus complication detail: with polyneuropathy Diabetes mellitus correction insulin use: with terminal superintendent use Qualified Code(s): E11.42 - Type 2 diabetes mellitus with diabetic polyneuropathy; Z79.4 - terminal superintendent (current) use of insulin (3) Type 2 diabetes mellitus with diabetic polyneuropathy: CODE(S): E11.42 - Type 2 diabetes mellitus with diabetic polyneuropathy QUALIFIERS: Diabetes mellitus terminal superintendent insulin use: with correction use Qualified Code(s): E11.42 - Type 2 diabetes mellitus with diabetic polyneuropathy; Z79.4 - terminal superintendent (current) use of insulin (4) COPD (chronic obstructive pulmonary disease): CODE(S): J44.9 - Chronic obstructive pulmonary disease, unspecified (5) Decubitus ulcer of left buttock, stage 3: CODE(S): L89.323 - Pressure ulcer of left buttock, stage 3 (6) Decubitus ulcer of left thigh, stage 3: CODE(S): L89.223 - Pressure ulcer of left hip, stage 3 (7) Chronic ulcer of left thigh with fat layer exposed: CODE(S): L97.122 - Non-pressure chronic ulcer of left thigh with fat layer exposed PLAN: Plan Debridement performed today in clinic as annotated above. At home wound-care instructions: Will dress ulcers with Fibracol and cover with silicone foam bordered dressing changed daily. Keep dressing clean and dry. Off-loading: The patient was instructed to avoid pressure and friction on the affected areas. Reposition every 2 hours at minimum. Avoid prolonged standing and/or dangling of legs. When seated, feet should be elevated at chest level. Frequent ambulation is encouraged. Diet: Patient encouraged to increase protein intake while taking caution to avoid high carbohydrate and/or sugar intake. Labs/cultures/imaging: Wound culture taken today and will call with results and anticipate need for treatment with antibiotic. Follow-up: Return next week for wound care follow up with another provider and then in 2 weeks with me. Return sooner or report to the emergency room should symptoms worsen, or new symptoms arise. Note: [employer] speech recognition wind technician software was used to create portions of this document. Sound-alike and misspelled words, as well as other wind technician errors may be contained in the documentation.
--- NOTE | 2022-07-25 08:41 | WC ---
Patient called asking if she could get [facility] for wound care since she is unable to get help at home to do daily dressings. Patient has no preference on what agency to use. Will send a referral to [facility] for HHS. Patient also asking if she is suppose to have an ATB at this time. Reviewed wound cultures from Monday's visit and only preliminary results noted. Told patient she will be notified once Dr Null reviews cultures to determine if she needs to go on an ATB. Patient verbalized understanding.
== END 2022-08-03 23:59 | disposition home or self-care (01) ==
LOC: WC 09:52
PROVIDERS: PCP Family Medicine; Referring Provider Family Medicine; Visit Provider Family Medicine
DX: E11.622 Type 2 diabetes mellitus with other skin ulcer (principal); L89.223 Pressure ulcer of left hip, stage 3; L89.323 Pressure ulcer of left buttock, stage 3; F25.0 Schizoaffective disorder, bipolar type; L97.122 Non-pressure chronic ulcer of left thigh with fat layer exposed; J43.9 Emphysema, unspecified; E11.42 Type 2 diabetes mellitus with diabetic polyneuropathy; E66.01 Morbid (severe) obesity due to excess calories; Z79.4 Long term (current) use of insulin; R32 Unspecified urinary incontinence; B00.9 Herpesviral infection, unspecified; I25.10 Atherosclerotic heart disease of native coronary artery without angina pectoris; E78.00 Pure hypercholesterolemia, unspecified; F17.210 Nicotine dependence, cigarettes, uncomplicated; Z79.01 Long term (current) use of anticoagulants; Z79.02 Long term (current) use of antithrombotics/antiplatelets; Z79.51 Long term (current) use of inhaled steroids; Z79.899 Other long term (current) drug therapy
CPT/HCPCS: 11042; 87070; 87075; 87077; 87186; 87205; 99214; G0463

== ENCOUNTER 2022-07-27 13:32 | Emergency (ER) | payer MEDICARE, SELFPAY ==
[2022-07-27 13:32] VITALS: BP 114/74; PULSE 94; RESP 16; TEMP 36.7; O2SAT 99
--- NOTE | 2022-07-27 14:15 | EDS_ITS ---
HPI History of Present Illness Chief Complaint: Meds Only Informant: patient Onset/Context/Timing Onset: Month(s) (3) Context: Gradual Onset Timing: Continuous Quality: Sharp Location: Perineum and inguinal areas, left greater than right Worsened by: Sitting, movement Relieved by: Nothing Narrative Narrative: Patient presents with painful open wounds to her perineum and inguinal area for the past 3 months. Patient states she has been following at the wound care [facility] er for the wounds. Patient states the pain has become more painful. Patient states she said something to the wound care center and she was referred to the emergency department for management of her pain. Patient states her pain is worse with sitting and with any movement. Patient denies any fevers or chills. Patient denies any discharge or drainage. [facility] Medical History Anemia Asthma Atherosclerotic heart disease of [place] coronary artery without angina pectoris Benign essential hypertension BiPAP (biphasic positive airway pressure) dependence Bleeding tendency Blood loss anemia CAD (coronary artery disease) Cardiac dysrhythmia Chest pain Chest pain at rest Chronic cough Chronic narcotic use Closed fracture of proximal end of fibula COPD (chronic obstructive pulmonary disease) Current use of insulin Delayed surgical wound healing Diabetes Dislocation of hip, right, closed Emphysema of lung Gastroesophageal reflux disease High cholesterol Hip osteoarthritis History of left heart catheterization (LHC) (~07/05/21) History of pulmonary embolism History of revision of total replacement of right hip joint History of stress test Hypertension Irregular heart beat Irritable bowel Morbid obesity Myocardial infarct On home oxygen therapy RACHEL (obstructive sleep apnea) Pancreatitis Peptic ulcer Preoperative cardiovascular examination Presence of stent in coronary artery (~02/07/11) Pulmonary hypertension Schizoaffective disorder Schizophrenia Sleep apnea Smoker Spinal stenosis of lumbar region at multiple levels Stage 2 moderate COPD by GOLD classification Suspected COVID-19 virus infection Takotsubo cardiomyopathy Thyroid nodule Tobacco abuse Ulcer Vitamin D deficiency Home Medications atorvastatin 80 mg tablet 80 mg PO QHS cholesterol 08/22/15 [History Last Taken 08/03/21] pregabalin 75 mg capsule 75 mg PO TID PAIN 03/08/18 [History Last Taken 08/03/21] risperidone 4 mg tablet 4 mg PO QHS sleep 03/08/18 [History Last Taken 08/04/21] trazodone 100 mg tablet 200 mg PO QHS PRN Insomnia 03/08/18 [History Last Taken 08/04/21] buspirone 30 mg tablet 30 mg PO BID anxiety 06/27/19 [History Last Taken 08/03/21] clopidogrel 75 mg tablet 75 mg PO DAILY blood thinner 07/31/20 [History Last Taken 08/03/21] escitalopram oxalate 20 mg tablet 20 mg PO DAILY mental health 11/14/20 [History Last Taken 08/03/21] fluticasone propionate 230 mcg-salmeterol 21 mcg/actuation HFA inhaler (Advair HFA) 2 puff inhalation BID SOB 11/14/20 [History Last Taken 08/05/21] promethazine 25 mg tablet 25 mg PO BID PRN PRN Nausea 11/14/20 [History Last Taken 08/04/21] potassium chloride 20 mEq tablet,extended release (K-Tab) 40 meq PO DAILY potassium replacement 01/13/21 [History Last Taken 08/05/21] albuterol sulfate 2.5 mg/3 mL (0.083 %) solution for nebulization 2.5 mg (3 mL) inhalation Q4H PRN Sob &/Or Wheezing #180 mL 05/25/21 [Rx Last Taken Unknown] pantoprazole 40 mg tablet,delayed release 40 mg PO BID gerd 08/05/21 [History Last Taken 08/03/21] sucralfate 1 gram tablet 1 g PO Q6H stomach 08/05/21 [History Last Taken 08/04/21] metoprolol succinate 25 mg tablet,extended release 24 hr 25 mg PO DAILY #60 tabs 08/06/21 [Rx Last Taken Unknown] albuterol sulfate 90 mcg/actuation aerosol inhaler 2 puff inhalation Q4H PRN PRN SOB &/or Wheezing #8.5 grams 03/03/22 [Rx Last Taken Unknown] fluticasone propionate 50 mcg/actuation nasal spray,suspension 1 spray intranasal BID allergies #16 grams 06/29/22 [Rx Last Taken Unknown] montelukast 10 mg tablet 10 mg PO DAILY pain #90 tabs 06/29/22 [Rx Last Taken Unknown] amlodipine 10 mg tablet 10 mg PO DAILY 07/22/22 [History Last Taken Unknown] apixaban 5 mg tablet (Eliquis) 5 mg PO BID 07/22/22 [History Last Taken Unknown] dicyclomine 20 mg tablet 20 mg PO 4X/DAY 07/22/22 [History Last Taken Unknown] ferrous sulfate 325 mg (65 mg iron) tablet 325 mg PO QODAY 07/22/22 [History Last Taken Unknown] furosemide 20 mg tablet (Lasix) 20 mg PO DAILY 07/22/22 [History Last Taken Unknown] glimepiride 2 mg tablet 2 mg PO BID 07/22/22 [History Last Taken Unknown] insulin glargine 100 unit/mL (3 mL) subcutaneous pen (Lantus Solostar U-100 Insulin) 40 unit subcut BID 07/22/22 [History Last Taken Unknown] insulin lispro 100 unit/mL subcutaneous pen (Humalog KwikPen (U-100) Insulin) 10 unit subcut TID 07/22/22 [History Last Taken Unknown] lamotrigine 25 mg tablet 25 mg PO QODAY 07/22/22 [History Last Taken Unknown] lisinopril 20 mg tablet 20 mg PO QHS 07/22/22 [History Last Taken Unknown] mirabegron 25 mg tablet,extended release 24 hr (Myrbetriq) 25 mg PO DAILY 07/22/22 [History Last Taken Unknown] omeprazole 20 mg capsule,delayed release 20 mg PO DAILY 07/22/22 [History Last Taken Unknown] ondansetron 4 mg disintegrating tablet 4 mg PO Q6H PRN Outbreak 07/22/22 [History Last Taken Unknown] sucralfate 1 gram tablet (Carafate) 1 g PO 4X/DAY 07/22/22 [History Last Taken Unknown] tiotropium bromide 2.5 mcg/actuation mist for inhalation (Spiriva Respimat) 2 puff inhalation DAILY 07/22/22 [History Last Taken Unknown] tizanidine 4 mg capsule 4 mg PO Q8H PRN Muscle Spasm 07/22/22 [History Last Taken Unknown] hydrocodone-acetaminophen 5-325mg 5mg-325mg 1 tab PO Q6H PRN PRN Pain 3 days #10 TABLETS 07/27/22 [Rx Last Taken Unknown] Allergy/AdvReac Type Severity Reaction Status Date / Time tramadol [From [facility]] Allergy Severe Blisters, Verified 07/27/22 13:36 itching amoxicillin Allergy Itching Verified 07/27/22 13:36 erythromycin base Allergy Unknown Verified 07/27/22 13:36 methadone Allergy Itching Verified 07/27/22 13:36 metolazone Allergy Unknown Verified 07/27/22 13:36 Penicillins Allergy Hives Verified 07/27/22 13:36 Sulfa (Sulfonamide Allergy Hives Verified 07/27/22 13:36 Antibiotics) clarithromycin [From Biaxin] AdvReac Nausea Verified 07/27/22 13:36 ibuprofen AdvReac 3 BLEEDING Verified 07/27/22 13:36 ULCERS morphine AdvReac HEADACHE Verified 07/27/22 13:36 oxycodone [From Percocet] AdvReac Itching Verified 07/27/22 13:36 Family History Mother Heart disease Cancer uterine Father Hypertension Arthritis Hyperlipemia Grandmother Breast cancer Heart disease Grandfather Heart disease Sister Hypertension Surgical History History of appendectomy History of carpal tunnel surgery of left wrist History of cholecystectomy History of gastric bypass History of gastric bypass History of right ankle surgery history of right hip surgery History of tonsillectomy Presence of coronary angioplasty implant and graft (~02/07/11) Social History household members: none Smoking Status: Current every day smoker tobacco type: cigarettes alcohol intake: never substance use type: does not use caffeine: Yes (occasional) what type of physical activity do you participate in: none ROS ROS ED Constitutional Constitutional ED: Denies chills or fever(s) Eyes Eyes: Denies blurry vision or change in vision ENT ENT ED: Denies rhinorrhea or sore throat Cardiovascular Cardiovascular: Denies chest pain or palpitations Respiratory/Chest Respiratory/Chest: Denies cough or dyspnea Gastrointestinal Gastrointestinal: Denies nausea or vomiting Genitourinary Genitourinary ED: Denies dysuria or hematuria Musculoskeletal Musculoskeletal: Denies back pain or neck pain Integumentary Denies abscess or rash Neurologic Neurologic: Denies headache(s) or weakness Allergic/Immunologic Allergic/Immunologic ED: Denies mouth swelling or urticaria EXAM Physical Exam Const Vital Signs: 07/27/22 13:32 Temperature 98.1 F Temperature Source Temporal Pulse Rate 94 Respiratory Rate 16 Blood Pressure 114/74 Blood Pressure Mean 87 Pulse Ox 99 Oxygen Delivery Method Room Air Positive well nourished and well developed General Appearance ED: well developed and NAD HEENT Reports moist mucous membranes Neuro oriented x3, CN's II-XII intact bilaterally and no sensory deficits noted Sensorium / Orientation: alert Motor Exam: strength 5/5 throughout Psych mental status grossly normal Skin Skin Narrative: Skin is warm and dry. There are healing wounds to the perineum and inguinal areas. There is minimal erythema. There is no discharge or drainage. There is tenderness to palpation over this area. Strength is 5/5 bilaterally in the lower extremities. There are no sensory deficits noted. There is good range of motion. MDM MDM MDM Narrative Medical decision making narrative: Since the patient is following with the wound care center for her wounds, I do not feel any further management of her wounds will be beneficial here in the emergency department. Patient was given a prescription for a short course of [place]. Patient states she is able to tolerate this. Patient was instructed to follow-up with the wound care center and her primary care physician for further management of her pain. Patient was advised that we do not provide long-term medications for chronic pain. Patient understands and is agreeable with the plan. All questions were answered. Discharge Plan Triage Chief Complaint: Meds Only ED Provider: Jese Maddox Dx/Rx/DC Orders Clinical Impression: Decubitus ulcer of left perineal ischial region, Decubitus ulcer of right perineal ischial region Instructions: ED Chronic Pain, ED Wound Care Prescriptions: New hydrocodone-acetaminophen [hydrocodone-acetaminophen] 5-325 mg tablet 1 tab PO Q6H PRN PRN (Reason: Pain) 3 Days Qty: 10 0RF No Action albuterol sulfate 2.5 mg /3 mL (0.083 %) solution for nebulization 2.5 mg inhalation Q4H PRN (Reason: Sob &/Or Wheezing) Qty: 180 3RF fluticasone propionate 50 mcg/actuation spray,suspension 1 spray INTRANASAL BID Qty: 16 11RF montelukast 10 mg tablet 10 mg PO DAILY Qty: 90 3RF atorvastatin 80 MG tablet 80 mg PO QHS Label Comments: cholesterol risperidone 4 mg tablet 4 mg PO QHS Label Comments: Take 1 tablet by mouth at bedtime trazodone 100 MG tablet 200 mg PO QHS PRN (Reason: Insomnia) pregabalin 75 MG capsule 75 mg PO TID buspirone 30 mg tablet 30 mg PO BID clopidogrel 75 mg tablet 75 mg PO DAILY promethazine 25 mg Tablet 25 mg PO BID PRN PRN (Reason: Nausea) escitalopram oxalate 20 mg Tablet 20 mg PO DAILY fluticasone propion-salmeterol [Advair HFA] 230-21 mcg/actuation Hfa Aerosol Inhaler 2 puff INHALATION BID potassium chloride [K-Tab] 20 mEq tablet extended release 40 meq PO DAILY sucralfate 1 gram tablet 1 g PO Q6H pantoprazole 40 mg tablet,delayed release (DR/EC) 40 mg PO BID metoprolol succinate 25 mg tablet extended release 24 hr 25 mg PO DAILY Qty: 60 0RF sucralfate [Carafate] 1 gram Tablet 1 g PO 4X/DAY amlodipine 10 mg Tablet 10 mg PO DAILY dicyclomine 20 mg Tablet 20 mg PO 4X/DAY Eliquis 5 mg Tablet 5 mg PO BID glimepiride 2 mg Tablet 2 mg PO BID ferrous sulfate 325 mg (65 mg iron) Tablet 325 mg PO QODAY furosemide [Lasix] 20 mg Tablet 20 mg PO DAILY tizanidine 4 mg Capsule 4 mg PO Q8H PRN (Reason: Muscle Spasm) ondansetron 4 mg Tablet,Disintegrating 4 mg PO Q6H PRN (Reason: Outbreak) Spiriva Respimat 2.5 mcg/actuation Mist 2 puff INHALATION DAILY lisinopril 20 mg Tablet 20 mg PO QHS omeprazole 20 mg Capsule,Delayed Release(Dr/Ec) 20 mg PO DAILY Myrbetriq 25 mg Tablet Extended Release 24 Hr 25 mg PO DAILY insulin glargine [Lantus Solostar U-100 Insulin] 100 unit/mL (3 mL) Insulin Pen 40 unit SUBCUT BID lamotrigine 25 mg Tablet 25 mg PO QODAY insulin lispro [Humalog KwikPen Insulin] 100 unit/mL Insulin Pen 10 unit SUBCUT TID Rx Instructions: before meals albuterol sulfate 90 mcg/actuation HFA aerosol inhaler 2 puff inhalation Q4H PRN PRN (Reason: SOB &/or Wheezing ) Qty: 8.5 11RF Primary Care Provider: Janel Taylor Referrals: Janel Taylor MD [Primary Care Provider] - 3-5 Days Disposition Disposition: Home, Self Care
[2022-07-27 14:31] VITALS: BMI 36.4
[2022-07-27 14:32] VITALS: BMI 36.4
== END 2022-07-27 14:34 | disposition home or self-care (01) ==
PROVIDERS: Emergency Provider Emergency Medicine; PCP Family Medicine; Visit Provider Emergency Medicine
DX: L89.319 Pressure ulcer of right buttock, unspecified stage (principal); L89.329 Pressure ulcer of left buttock, unspecified stage; J43.9 Emphysema, unspecified; E11.9 Type 2 diabetes mellitus without complications; Z79.4 Long term (current) use of insulin; E78.00 Pure hypercholesterolemia, unspecified; I25.10 Atherosclerotic heart disease of native coronary artery without angina pectoris; I10 Essential (primary) hypertension; I25.2 Old myocardial infarction; Z79.01 Long term (current) use of anticoagulants; Z79.02 Long term (current) use of antithrombotics/antiplatelets; Z79.84 Long term (current) use of oral hypoglycemic drugs; Z79.899 Other long term (current) drug therapy; Z95.5 Presence of coronary angioplasty implant and graft; F17.210 Nicotine dependence, cigarettes, uncomplicated; Z98.84 Bariatric surgery status
CPT/HCPCS: 99281

== ENCOUNTER 2022-08-16 11:58 | Inpatient (IN) | payer MEDICARE, SELFPAY ==
[2022-08-16] VITALS (17 sets, daily range): BP systolic 142–194; BP diastolic 81–120; PULSE 24–105; RESP 12–37; TEMP 35.7–37.2; O2SAT 90–97; BMI 41.4; BMI 38.8
--- NOTE | 2022-08-16 12:19 | EKG12_ITS ---
Test Reason : SOB Blood Pressure : / mmHG Vent. Rate : 076 BPM Atrial Rate : 076 BPM P-R Int : 150 ms QRS Dur : 094 ms QT Int : 386 ms P-R-T Axes : 036 004 029 degrees QTc Int : 434 ms Normal sinus rhythm Cannot rule out Anterior infarct , age undetermined Abnormal ECG Confirmed by MIGUEL TAFOYA, MOY ([id number]), newspaper photo editor MARTHA SCOTT ([id number]) on 08/19/2022 9:54:46 AM Referred By: Confirmed By:PALOMA RIVERA MD
[2022-08-16 12:53] LABS: Absolute Lymphocyte Count 0.35 X10^3/uL (0.83-4.51); Basophil# 0.06 X10^3/uL; Basophil% 0.3 % (0-1); Eosinophil# 0.02 X10^3/uL; Eosinophils% 0.1 % (0-5); Hematocrit 32.8 % (37-47); Hemoglobin 10.7 g/dL (12.0-15.0); Lymphocyte # 0.35 X10^3/ul (0.83-4.51); Lymphocyte % 1.7 % (19-41); Mean Corp Hgb Conc 32.6 g/dL (32-36); Mean Corpuscular Hgb 27.2 pg (27.0-32.0); Mean Corpuscular Volume 83.5 fL (81-99); Mean Platelet Vol. 9.3 fl (6.2-12.0); Monocyte# 1.05 X10^3/uL; Monocyte% 5.1 % (0-10); NRBC Flagged by Analyzer 0 % (0-5); Neutrophil # 18.99 X10^3/uL (2.7-7.7); Neutrophil % 92.4 % (47-70); POSITIVE DIFFERENTIAL YES; Platelet Count 335 K/mm3 (150-450); RBC Distribution Width SD 52.4 fl (35.1-43.9); Red Blood Count 3.93 M/mm3 (4.2-5.4); White Blood Count 20.6 K/mm3 (4.4-11.0)
[2022-08-16] MEDS: MethylPREDNISolone 125 MG/2 ML Vial IV (12:54)
--- NOTE | 2022-08-16 13:00 | RAD_ITS ---
STUDY: X-RAY CHEST REASON FOR EXAM: Female, 57 years old. Respiratory distress, bilateral rales and expiratory TECHNIQUE: Single AP portable view of the chest. COMPARISON: Comparison is made with prior study dated April 01, 2022. FINDINGS: EKG electrodes are seen. Patchy areas of airspace disease more prominent in the left perihilar region. This may represent either CHF versus early bilateral infiltrates. Follow-up is recommended. There is no demonstrated pleural abnormality. Normal size heart. Normal mediastinum and alden. Normal visualized pulmonary arteries. There is atherosclerotic calcification of the aortic arch with tortuosity. There are diffuse degenerative changes of the visualized thoracic spine. There is degenerative osteoarthritis of the bilateral shoulders. There is no demonstrated abnormality of the visualized soft tissue structures of the upper abdomen. RAD/Chest 1 View (Portable) IMPRESSION: Patchy bilateral airspace disease more prominent in the left perihilar region. This may represent either pneumonia versus CHF. Follow-up recommended. Electronically Signed: Manuelito Silva MD at 13:17 EDT ,
--- NOTE | 2022-08-16 13:01 | EDS_ITS ---
HPI History of Present Illness Chief Complaint: Shortness of Breath Detail of Chief Complaint: Shortness of breath that has progressive gotten worse over the past 5 days Informant: patient Onset/Context/Timing Onset: Days Context: gradual Timing: Continuous and Waxes and wanes Quality: Positive for Dyspnea on exertion and Wheezing; Negative for Orthopnea or PND Current Severity: Moderate Maximum Severity: Severe Worsened by: Exertion (Unable to take more than 1-2 steps without having to stop gasping for air) Relieved by: Nothing Associated Symptoms cough, fever, subjective, chills and green sputum; Negative for rhinorrhea, post nasal drip, ear pain, sore throat, sweats, clear sputum, white sputum or yellow sputum Chest Pain: Positive for None Narrative Narrative: Patient is a 57-year-old woman with history of COPD who recently saw Dr. Lucas Willoughby's nurse practitioner and prescribed doxycycline and tapering dose of prednisone. She is not certain what her present dose is for today. She does have a cough which essentially nonproductive. When it is productive the sputum is colored. She will occasionally use oxygen of 2 to 3 L. She is not continuously on oxygen. She denies headache, visual, ocular auditory symptoms. She denies trouble with speech or swallowing. She denies history of VTE. She denies leg pain, swelling discoloration. She denies any present risk factors for VTE. She does have history of obstructive sleep apnea. She also has history of type 2 diabetes, hyperlipidemia, diabetic neuropathy, iron deficiency anemia. She did have a heart cath in July of . There is a history of reflux which she denied. PE Risk Factors: Negative for Cancer, OCP + Smoking + > 35, Prior DVT or PE, Recent immobilization, Recent surgery or Recent travel Prior similar symptoms: Yes Recent Illness/Hospitalization: Yes [facility] Medical History Anemia Asthma Atherosclerotic heart disease of tangirnaq coronary artery without angina pectoris Benign essential hypertension BiPAP (biphasic positive airway pressure) dependence Bleeding tendency Blood loss anemia CAD (coronary artery disease) Cardiac dysrhythmia Chest pain Chest pain at rest Chronic cough Chronic narcotic use Closed fracture of proximal end of fibula COPD (chronic obstructive pulmonary disease) Current use of insulin Delayed surgical wound healing Diabetes Dislocation of hip, right, closed Emphysema of lung Gastroesophageal reflux disease High cholesterol Hip osteoarthritis History of left heart catheterization (LHC) (~07/05/21) History of pulmonary embolism History of revision of total replacement of right hip joint History of stress test Hypertension Irregular heart beat Irritable bowel Morbid obesity Myocardial infarct On home oxygen therapy RACHEL (obstructive sleep apnea) Pancreatitis Peptic ulcer Preoperative cardiovascular examination Presence of stent in coronary artery (~02/07/11) Pulmonary hypertension Schizoaffective disorder Schizophrenia Sleep apnea Smoker Spinal stenosis of lumbar region at multiple levels Stage 2 moderate COPD by GOLD classification Suspected COVID-19 virus infection Takotsubo cardiomyopathy Thyroid nodule Tobacco abuse Ulcer Vitamin D deficiency Home Medications atorvastatin 80 mg tablet 80 mg PO QHS cholesterol 08/22/15 [History Last Taken 08/03/21] pregabalin 75 mg capsule 75 mg PO TID PAIN 03/08/18 [History Last Taken 08/03/21] risperidone 4 mg tablet 4 mg PO QHS sleep 03/08/18 [History Last Taken 08/04/21] trazodone 100 mg tablet 200 mg PO QHS PRN Insomnia 03/08/18 [History Last Taken 08/04/21] buspirone 30 mg tablet 30 mg PO BID anxiety 06/27/19 [History Last Taken 08/03/21] clopidogrel 75 mg tablet 75 mg PO DAILY blood thinner 07/31/20 [History Last Taken 08/03/21] escitalopram oxalate 20 mg tablet 20 mg PO DAILY mental health 11/14/20 [History Last Taken 08/03/21] fluticasone propionate 230 mcg-salmeterol 21 mcg/actuation HFA inhaler (Advair HFA) 2 puff inhalation BID SOB 11/14/20 [History Last Taken 08/05/21] promethazine 25 mg tablet 25 mg PO BID PRN PRN Nausea 11/14/20 [History Last Taken 08/04/21] potassium chloride 20 mEq tablet,extended release (K-Tab) 40 meq PO DAILY potassium replacement 01/13/21 [History Last Taken 08/05/21] albuterol sulfate 2.5 mg/3 mL (0.083 %) solution for nebulization 2.5 mg (3 mL) inhalation Q4H PRN Sob &/Or Wheezing #180 mL 05/25/21 [Rx Last Taken Unknown] pantoprazole 40 mg tablet,delayed release 40 mg PO BID gerd 08/05/21 [History Last Taken 08/03/21] sucralfate 1 gram tablet 1 g PO Q6H stomach 08/05/21 [History Last Taken 08/04/21] metoprolol succinate 25 mg tablet,extended release 24 hr 25 mg PO DAILY #60 tabs 08/06/21 [Rx Last Taken Unknown] albuterol sulfate 90 mcg/actuation aerosol inhaler 2 puff inhalation Q4H PRN PRN SOB &/or Wheezing #8.5 grams 03/03/22 [Rx Last Taken Unknown] fluticasone propionate 50 mcg/actuation nasal spray,suspension 1 spray intranasal BID allergies #16 grams 06/29/22 [Rx Last Taken Unknown] montelukast 10 mg tablet 10 mg PO DAILY pain #90 tabs 06/29/22 [Rx Last Taken Unknown] amlodipine 10 mg tablet 10 mg PO DAILY 07/22/22 [History Last Taken Unknown] apixaban 5 mg tablet (Eliquis) 5 mg PO BID 07/22/22 [History Last Taken Unknown] dicyclomine 20 mg tablet 20 mg PO 4X/DAY 07/22/22 [History Last Taken Unknown] ferrous sulfate 325 mg (65 mg iron) tablet 325 mg PO QODAY 07/22/22 [History Last Taken Unknown] furosemide 20 mg tablet (Lasix) 20 mg PO DAILY 07/22/22 [History Last Taken Unknown] glimepiride 2 mg tablet 2 mg PO BID 07/22/22 [History Last Taken Unknown] insulin glargine 100 unit/mL (3 mL) subcutaneous pen (Lantus Solostar U-100 Insulin) 40 unit subcut BID 07/22/22 [History Last Taken Unknown] insulin lispro 100 unit/mL subcutaneous pen (Humalog KwikPen (U-100) Insulin) 10 unit subcut TID 07/22/22 [History Last Taken Unknown] lamotrigine 25 mg tablet 25 mg PO QODAY 07/22/22 [History Last Taken Unknown] lisinopril 20 mg tablet 20 mg PO QHS 07/22/22 [History Last Taken Unknown] mirabegron 25 mg tablet,extended release 24 hr (Myrbetriq) 25 mg PO DAILY 07/22/22 [History Last Taken Unknown] omeprazole 20 mg capsule,delayed release 20 mg PO DAILY 07/22/22 [History Last Taken Unknown] ondansetron 4 mg disintegrating tablet 4 mg PO Q6H PRN Outbreak 07/22/22 [History Last Taken Unknown] sucralfate 1 gram tablet (Carafate) 1 g PO 4X/DAY 07/22/22 [History Last Taken Unknown] tiotropium bromide 2.5 mcg/actuation mist for inhalation (Spiriva Respimat) 2 puff inhalation DAILY 07/22/22 [History Last Taken Unknown] tizanidine 4 mg capsule 4 mg PO Q8H PRN Muscle Spasm 07/22/22 [History Last Taken Unknown] hydrocodone-acetaminophen 5-325mg 5mg-325mg 1 tab PO Q6H PRN PRN Pain 3 days #10 TABLETS 07/27/22 [Rx Last Taken Unknown] doxycycline hyclate 100 mg tablet 100 mg PO BID #20 tabs 08/10/22 [Rx Last Taken Unknown] prednisone 10 mg tablet 10 mg PO QDAY #30 tabs 08/10/22 [Rx Last Taken Unknown] Allergy/AdvReac Type Severity Reaction Status Date / Time tramadol [From Ultram] Allergy Severe Blisters, Verified 07/27/22 13:36 itching amoxicillin Allergy Itching Verified 07/27/22 13:36 erythromycin base Allergy Unknown Verified 07/27/22 13:36 methadone Allergy Itching Verified 07/27/22 13:36 metolazone Allergy Unknown Verified 07/27/22 13:36 Penicillins Allergy Hives Verified 07/27/22 13:36 Sulfa (Sulfonamide Allergy Hives Verified 07/27/22 13:36 Antibiotics) clarithromycin [From Biaxin] AdvReac Nausea Verified 07/27/22 13:36 ibuprofen AdvReac 3 BLEEDING Verified 07/27/22 13:36 ULCERS morphine AdvReac HEADACHE Verified 07/27/22 13:36 oxycodone [From Percocet] AdvReac Itching Verified 07/27/22 13:36 Family History Mother Heart disease Cancer uterine Father Hypertension Arthritis Hyperlipemia Grandmother Breast cancer Heart disease Grandfather Heart disease Sister Hypertension Surgical History History of appendectomy History of carpal tunnel surgery of left wrist History of cholecystectomy History of gastric bypass History of gastric bypass History of right ankle surgery history of right hip surgery History of tonsillectomy Presence of coronary angioplasty implant and graft (~02/07/11) Social History household members: none Smoking Status: Current every day smoker tobacco type: cigarettes alcohol intake: never substance use type: does not use caffeine: Yes (occasional) what type of physical activity do you participate in: none ROS ROS ED Constitutional Constitutional ED: Reports chills, fever(s) and sweats; Denies weight loss Eyes Eyes: Denies blurry vision, change in vision or diplopia ENT ENT ED: Denies ear pain, rhinorrhea or sore throat Cardiovascular Cardiovascular: Denies chest pain, orthopnea, palpitations, paroxysmal nocturnal dyspnea or racing heartbeat Respiratory/Chest Respiratory/Chest: Reports cough, dyspnea, dyspnea on exertion and sputum; Denies orthopnea or paroxysmal nocturnal dyspnea Gastrointestinal Gastrointestinal: Reports nausea; Denies abdominal pain, constipation, diarrhea or melena Genitourinary Genitourinary ED: Denies dysuria, hematuria or urinary frequency Musculoskeletal Musculoskeletal: Denies arthralgias, back pain, myalgias or neck pain Integumentary Denies abscess or rash Neurologic Neurologic: Reports weakness; Denies headache(s) or paresthesias Psychiatric Psychiatric: Reports anxiety Endocrine Endocrinology: Denies cold intolerance or heat intolerance Hematologic/Lymphatic Hematologic/Lymphatic: Denies easy bleeding or easy bruising EXAM Physical Exam Const Vital Signs: 08/16/22 11:58 08/16/22 12:05 08/16/22 12:05 Temperature 97.8 F 98.4 F Temperature Source Temporal Oral Pulse Rate 80 89 Respiratory Rate 20 H 22 H Respiratory Effort Respiratory Depth Respiratory Pattern Blood Pressure 142/81 H 154/86 H Blood Pressure Mean 101 108 Pulse Ox 90 91 Oxygen Delivery Method Nasal Cannula Nasal Cannula Oxygen Flow Rate (L/min) 5 5 08/16/22 12:09 08/16/22 13:49 Temperature 97.0 F L Temperature Source Temporal Pulse Rate 85 Respiratory Rate 18 Respiratory Effort Short of Breath Labored Respiratory Depth Shallow Respiratory Pattern Irregular Blood Pressure 179/95 H Blood Pressure Mean 123 Pulse Ox 93 Oxygen Delivery Method Nasal Cannula Nasal Cannula Oxygen Flow Rate (L/min) 5 Positive well nourished, well developed and obese Constitutional Narrative: Patient is interested distress with conversational dyspnea. She is able to say 2-3 words at best without having to take a gasping breath. She is presently on 5 L by nasal cannula. There is use of accessory muscles. General Appearance ED: well developed; Negative for pallor Nutritional Appearance: obese HEENT Reports dry mucous membranes HEENT Narrative: Head is normocephalic. Ears normal. TMs normal. Nares patent. Posterior pharynx is normal. Uvula is midline. atraumatic Mouth ED: Yes dry mucous membranes Mouth: dry mucous membranes Eyes PERRL and EOMs intact bilaterally General Eye ED: Negative for pale conjunctiva or scleral icterus Neck no lymphadenopathy, supple, no meningeal signs and no JVD Neck Narrative: Trachea is midline there is no in-store expiratory stridor. Resp No normal respiratory effort and No clear to auscultation bilaterally Auscultation: rales bilateral lower and wheezes expiratory wheezes, scattered wheezes (There is increased expiratory phase with diminished air movement.) and throughout Cardio regular rate, regular rhythm, S1 normal heart sound, S2 normal heart sound and no murmurs GI non-tender, non-distended and no masses Auscultation: normoactive bowel sounds Palpation: soft Back/Spine no CVA tenderness and normal to inspection Extremity normal to inspection General Extremety ED: Negative for edema or tenderness General Extremity: Negative for edema Neuro oriented x3, CN's II-XII intact bilaterally and no sensory deficits noted Jasbir Coma Scale: document GCS findings Spontaneous Obeys Commands Oriented 15 Sensorium / Orientation: alert Psych mental status grossly normal Skin no wounds and skin turgor normal General Skin Exam: Negative for jaundice or pallor Lesions: no lesions Rashes: no rashes MDM MDM MDM Narrative Medical decision making narrative: Differential diagnosis would include pneumonia, exacerbated COPD with bronchitis, pneumothorax, doubt pulmonary embolus in light of history. Patient was treated with DuoNeb, albuterol, Solu-Medrol. EKG was obtained to assess for acute ischemia. Chest x-ray to assess for pneumonia, CHF and pneumothorax. Electrolyte panel to assess renal function as well as glucose and CO2 to/anion gap. CBC to assess white count and rule out anemia. Will obtain blood cultures if not ordered initially. Since patient comes from home we will treat with azithromycin and Rocephin for bilateral interstitial pneumonia. Patient does have hyponatremia which is acute, 127. Need to evaluate for SIADH. Blood sugar is elevated 286 with a normal BUN and creatinine as well as CO2 and anion gap. History & Record Review Discussion w/independent historian: Patient Lab Data Attestation: I reviewed the patient's lab results. Lab results narrative: Documented in the MDM portion of the chart Labs: Laboratory Results - last 24 hr 08/16/22 08/16/22 08/16/22 11:40 11:40 11:40 WBC 20.6 H RBC 3.93 L Hgb 10.7 L Hct 32.8 L MCV 83.5 MCH 27.2 MCHC 32.6 RDW Std Deviation 52.4 H RDW Coeff of Kaycee 17.0 H Plt Count 335 MPV 9.3 Immature Gran % (Auto) 0.400 Neut % (Auto) 92.4 H Lymph % (Auto) 1.7 L Turner % (Auto) 5.1 Eos % (Auto) 0.1 Baso % (Auto) 0.3 Absolute Neuts (auto) 19.0 H Absolute Lymphs (auto) 0.35 L Nucleated RBC % 0 Differential Comment SCANNED Sodium 127 L Potassium 4.4 Chloride 96 L Carbon Dioxide 24.0 Anion Gap 7 BUN 11 Creatinine 0.88 Estim Creat Clear Calc 55.79 Est GFR (MDRD) Af Amer 85 Est GFR (MDRD) Non-Af 70 BUN/Creatinine Ratio 12.4 Glucose 286 H Lactic Acid 1.9 Calcium 10.7 H Total Bilirubin 0.90 AST 60 H ALT 71 H Alkaline Phosphatase 256 H Total Protein 7.4 Albumin 2.6 L Globulin 4.8 H Albumin/Globulin Ratio 0.5 L Radiography Chest X-Ray - ED: 1 View and Read by ED Physician (Single view portable chest x- ray reveals bilateral interstitial pneumonia. Cardiac silhouette and size unremarkable. Perihilar region slightly fluffy. Osseous trucks unremarkable. This was interpreted by me at 03/08/2008.) Diagnostic Testing: Clinical Impression(s) from Imaging Studies Chest X-Ray 08/16/22 13:00 IMPRESSION: Patchy bilateral airspace disease more prominent in the left perihilar region. This may represent either pneumonia versus CHF. Follow-up recommended. Electronically Signed: Manuelito Silva MD at 13:17 EDT , EKG Initial EKG: Attestation: I personally reviewed and interpreted this EKG as follows: Interpretation: Sinus Rhythm (Rate is 76. DE interval is 150 ms. Cures duration 94 ms. QT duration 3 and 86 ms. Vian is normal. There is decreased anterior force. Will need old for comparison.) Critical Care Time Critical Care Time: Yes Critical care time (excluding procedures): 30-74 minutes (31 which included history, physical, documentation, independent interpretation of laboratory results and x-ray and initiation of therapy for bilateral pneumonia. Sepsis order set), Discussing w/Patient &/or Family/Portfolio Management Marketing, Discussing w/Consultants and Arranging Admission or Transfer Discharge Plan Triage Chief Complaint: Shortness of Breath ED Provider: Balaji Armstrong Dx/Rx/DC Orders Clinical Impression: Bilateral pneumonia, Benign essential hypertension, COPD (chronic obstructive pulmonary disease), Obesity, Atherosclerotic heart disease of tangirnaq coronary artery without angina pectoris, Type 2 diabetes mellitus, Acute respiratory failure with hypoxia, Acute bronchospasm Prescriptions: No Action albuterol sulfate 2.5 mg /3 mL (0.083 %) solution for nebulization 2.5 mg inhalation Q4H PRN (Reason: Sob &/Or Wheezing) Qty: 180 3RF fluticasone propionate 50 mcg/actuation spray,suspension 1 spray INTRANASAL BID Qty: 16 11RF montelukast 10 mg tablet 10 mg PO DAILY Qty: 90 3RF atorvastatin 80 MG tablet 80 mg PO QHS Label Comments: cholesterol risperidone 4 mg tablet 4 mg PO QHS Label Comments: Take 1 tablet by mouth at bedtime trazodone 100 MG tablet 200 mg PO QHS PRN (Reason: Insomnia) pregabalin 75 MG capsule 75 mg PO TID buspirone 30 mg tablet 30 mg PO BID clopidogrel 75 mg tablet 75 mg PO DAILY promethazine 25 mg Tablet 25 mg PO BID PRN PRN (Reason: Nausea) escitalopram oxalate 20 mg Tablet 20 mg PO DAILY fluticasone propion-salmeterol [Advair HFA] 230-21 mcg/actuation Hfa Aerosol Inhaler 2 puff INHALATION BID potassium chloride [K-Tab] 20 mEq tablet extended release 40 meq PO DAILY sucralfate 1 gram tablet 1 g PO Q6H pantoprazole 40 mg tablet,delayed release (DR/EC) 40 mg PO BID metoprolol succinate 25 mg tablet extended release 24 hr 25 mg PO DAILY Qty: 60 0RF sucralfate [Carafate] 1 gram Tablet 1 g PO 4X/DAY amlodipine 10 mg Tablet 10 mg PO DAILY dicyclomine 20 mg Tablet 20 mg PO 4X/DAY Eliquis 5 mg Tablet 5 mg PO BID glimepiride 2 mg Tablet 2 mg PO BID ferrous sulfate 325 mg (65 mg iron) Tablet 325 mg PO QODAY furosemide [Lasix] 20 mg Tablet 20 mg PO DAILY tizanidine 4 mg Capsule 4 mg PO Q8H PRN (Reason: Muscle Spasm) ondansetron 4 mg Tablet,Disintegrating 4 mg PO Q6H PRN (Reason: Outbreak) Spiriva Respimat 2.5 mcg/actuation Mist 2 puff INHALATION DAILY lisinopril 20 mg Tablet 20 mg PO QHS omeprazole 20 mg Capsule,Delayed Release(Dr/Ec) 20 mg PO DAILY Myrbetriq 25 mg Tablet Extended Release 24 Hr 25 mg PO DAILY insulin glargine [Lantus Solostar U-100 Insulin] 100 unit/mL (3 mL) Insulin Pen 40 unit SUBCUT BID lamotrigine 25 mg Tablet 25 mg PO QODAY insulin lispro [Humalog KwikPen Insulin] 100 unit/mL Insulin Pen 10 unit SUBCUT TID Rx Instructions: before meals hydrocodone-acetaminophen [hydrocodone-acetaminophen] 5-325 mg tablet 1 tab PO Q6H PRN PRN (Reason: Pain) 3 Days Qty: 10 0RF albuterol sulfate 90 mcg/actuation HFA aerosol inhaler 2 puff inhalation Q4H PRN PRN (Reason: SOB &/or Wheezing ) Qty: 8.5 11RF prednisone 10 mg tablet 10 mg PO QDAY Qty: 30 0RF Rx Instructions: take 4 tabs for three days, then 3 tabs for three days, then 2 tabs for three days, then 1 tab for 3 days doxycycline hyclate 100 mg tablet 100 mg PO BID Qty: 20 0RF Primary Care Provider: Janel Taylor Referrals: Janel Taylor MD [Primary Care Provider] - Disposition Disposition: Acute Care Hospital [facility]
[2022-08-16 13:06] LABS: ALB/GLOB Ratio 0.5 RATIO (0.9-2.4); AST(SGOT) 60 U/L (15-37); Alanine Aminotransfer ALT/SGPT 71 U/L (13-56); Albumin, Serum 2.6 g/dL (3.2-5.0); Alkaline Phosphatase 256 U/L (45-117); Anion Gap 7 (5-15); BUN 11 mg/dL (7-18); BUN/Creat Ratio 12.4 RATIO (10-20); Calcium,Total 10.7 mg/dL (8.5-10.1); Chloride 96 mmol/L (98-107); Creatinine, Serum 0.88 mg/dL (0.55-1.02); EST Glomerular Filtration Rate 70 mL/min (>60); Est Glom Filt Rate - Afr Amer 85 mL/min (>60); Estimated Creatinine Clearance 55.79 ml/min; Globulin 4.8 g/dL (2.2-4.2); Glucose 286 mg/dL (74-106); Potassium 4.4 mmol/L (3.5-5.1); Protein, Total 7.4 g/dL (6.4-8.2); Sodium Level 127 mmol/L (136-145)
[2022-08-16] MEDS: Ipratropium/Albuterol Sulfate 3 ML AMPUL.NEB INHALATION (13:12)
[2022-08-16 13:15] LABS: Lactic Acid 1.9 mmol/L (0.4-1.9)
[2022-08-16 13:27] LABS: Differential Indicated SCAN CRITERIA MET
[2022-08-16 13:29] LABS: Differential Comment SCANNED
[2022-08-16 14:13] LABS: Base Excess -1 mmol/L (-2 to +2); Bicarbonate 23.9 mmol/L (22-26); Blood Gas Specimen Type ART; O2 Delivery Device Cannula; PO2 55 mmHG (75-100); SITE R Brach; SO2 88 % (95-99); Total Carbon Dioxide 25 mmol/L; pCO2 38.7 mmHg (35-45)
[2022-08-16] MEDS: Albuterol 2.5 MG/3 ML VIAL.NEB. INHALATION ×3 (14:17→19:13)
[2022-08-16] MEDS: levoFLOXacin IV 750 MG/150 ML BAG 100 MG IV (14:36)
--- NOTE | 2022-08-16 15:01 | ED.RN ---
1500: Patient to go to floor, O2 sat 78%. Dr. Armstrong notified. Patient placed on 8L HFNC. O2 sat increase to 95%
--- NOTE | 2022-08-16 15:37 | ECHOCS_ITS ---
Reason For Study: CONGESTIVE HEART FAILURE Procedure This was a 2D Doppler, Color Flow transthoracic echocardiogram. The study was technically difficult. Exam performed portable in patient room. Left Ventricle Normal LV size. The estimated ejection fraction is 70 %. Normal diastology for age. No regional wall motion abnormalities noted. Right Ventricle Normal RV size. Normal systolic function. Atria Normal left atrium. Normal right atrium. Mitral Valve There is no mitral valve stenosis. No mitral valve insufficiency. Tricuspid Valve There is no tricuspid stenosis. No tricuspid valve insufficiency. Aortic Valve There is no aortic stenosis. Trivial aortic valve insufficiency. Pulmonic Valve There is no pulmonic valvular stenosis. No pulmonic valve insufficiency. Great Vessels Normal aortic root. Pericardium/Pleural No pericardial effusion. Medication Diluted definity 4ml given slow IV push to enhance endocardial definition. MMode/2D Measurements & Calculations LVIDd: 3.7 cm IVSd: 0.99 cm LVOT diam: 1.9 cm LVIDs: 1.7 cm LVPWd: 0.89 cm RVDd: 3.2 cm FS: 54.5 % LVOT area: 2.7 cm2 Ao root diam: 3.3 cm LAV(MOD-bp): 51.3 ml LVAd ap4: 35.8 cm2 LAV(MOD-bp) Indexed: 25.5 ml/m2 LVLd ap4: 8.3 cm LAV(MOD-sp2): 52.8 ml EDV(MOD-sp4): 127.1 ml LAV(MOD-sp4): 49.6 ml EDV(sp4-el): 130.0 ml LVAs ap4: 15.8 cm2 LVLs ap4: 6.6 cm ESV(MOD-sp4): 32.4 ml ESV(sp4-el): 32.3 ml EF(MOD-sp4): 74.5 % EF(sp4-el): 75.1 % LVAd ap2: 38.9 cm2 SV(MOD-sp4): 94.7 ml SV(MOD-sp2): 110.2 ml LVLd ap2: 8.0 cm EDV(MOD-sp2): 151.4 ml EDV(sp2-el): 159.5 ml LVAs ap2: 18.0 cm2 LVLs ap2: 6.4 cm ESV(MOD-sp2): 41.2 ml ESV(sp2-el): 43.4 ml EF(MOD-sp2): 72.8 % SV(sp4-el): 97.7 ml LA dimension(2D): 4.3 cm LA A4 area: 19.2 cm2 RA A4 area: 10.8 cm2 Time Measurements MV dec time: 0.22 sec Doppler Measurements & Calculations MV E max natan: 106.8 cm/sec Lat Peak E' Natan: 8.5 cm/sec Med Peak E' Natan: 8.9 cm/sec MV A max natan: 136.4 cm/sec E/E' lat: 12.6 E/E' med: 12.1 MV E/A: 0.78 Ao V2 max: 203.4 cm/sec AI max natan: 388.9 cm/sec MV dec slope: 485.2 cm/sec2 Ao max P.5 mmHg AI max P.5 mmHg FELI(V,D): 2.0 cm2 AI dec slope: 199.2 cm/sec2 AI P1/2t: 571.8 msec LV V1 max: 149.7 cm/sec PA V2 max: 120.2 cm/sec LV V1 max P.0 mmHg PA max PG (full): 2.3 mmHg ECHO/Echo Complete W/ Contrast Interpretation Summary The estimated ejection fraction is 70 %. Trivial aortic valve insufficiency. Ordering Physician: Jessica Johnson Performed By: Susan Lau RDCS
--- NOTE | 2022-08-16 15:37 | CT_ITS ---
INDICATION: abnormal CXR, hypoxia EXAMINATION: CT CHEST WITHOUT CONTRAST - CT Chest W/O Contrast Injection TECHNIQUE: Helically acquired images were obtained of the chest. A radiation dose optimization technique was used for this scan. IV Contrast dosage and agent: None. COMPARISON: 04/13/2018 CTA chest. FINDINGS: LUNGS, PLEURA AND LARGE AIRWAYS: Diffuse bilateral groundglass opacities with multiple areas of confluence. Peripheral septal thickening. No consolidations. Trace right pleural effusion. No pneumothorax. THYROID: No thyroid lesions. HEART AND PERICARDIUM: Cardiomegaly. No pericardial effusion. Coronary artery calcifications present. VESSELS: Mild ectasia ascending thoracic aorta. MEDIASTINUM AND MATTIE: No mediastinal or hilar adenopathy. Esophagus is unremarkable. No hiatal hernia. UPPER ABDOMEN: No acute pathology. BONES: No acute or aggressive abnormality. CT/Chest without Contrast IMPRESSION: Cardiomegaly with pulmonary changes consistent with pulmonary edema versus pneumonia including atypical or viral pneumonia. Findings are of uncertain chronicity. Progression of chronic interstitial lung disease should not be dismissed as there were groundglass opacities on the prior study. Electronically Signed: Maxwell Barajas MD at 18:14 EDT ,
[2022-08-16 15:56] LABS: Allen Test Positive; Base Excess -1 mmol/L (-2 to +2); Bicarbonate 24.7 mmol/L (22-26); Blood Gas Specimen Type ART; O2 Delivery Device HFNC; PO2 32 mmHG (75-100); SITE R Radial; SO2 60 % (95-99); Total Carbon Dioxide 26 mmol/L; pCO2 42.5 mmHg (35-45); pH 7.37 (7.35-7.45)
[2022-08-16 16:35] LABS: BNP,B-Type NATRIURETIC PEPTIDE 318.7 pg/mL (0-100)
--- NOTE | 2022-08-16 17:42 | PCM.HP.STD ---
HPI - General General Date of Admission: 08/16/22 Date of Service: 08/16/22 Chief Complaint: Cough and shortness of breath and exertional dyspnea HPI Narrative TALAT HAN, is a 57 F with a history of COPD on chronic oxygen at home and who presents with a 5-day history of increasing shortness of breath, exertional dyspnea, easy fatigability and wheezing. Has been prescribed tigecycline and prednisone by pulmonology team without any improvement in her symptoms. Patient continues to smoke 2 packs of cigarettes a day and at that juncture was counseled on cessation. Chest x-ray showing bilateral patchy infiltrates and she is presumed to have pneumonia and has been started on antibiotics by ED physician. [facility] Medical History Anemia Asthma Atherosclerotic heart disease of [place] coronary artery without angina pectoris Benign essential hypertension BiPAP (biphasic positive airway pressure) dependence Bleeding tendency Blood loss anemia CAD (coronary artery disease) Cardiac dysrhythmia Chest pain Chest pain at rest Chronic cough Chronic narcotic use Closed fracture of proximal end of fibula COPD (chronic obstructive pulmonary disease) Current use of insulin Delayed surgical wound healing Diabetes Dislocation of hip, right, closed Emphysema of lung Gastroesophageal reflux disease High cholesterol Hip osteoarthritis History of left heart catheterization (LHC) (~07/05/21) History of pulmonary embolism History of revision of total replacement of right hip joint History of stress test Hypertension Irregular heart beat Irritable bowel Morbid obesity Myocardial infarct On home oxygen therapy RACHEL (obstructive sleep apnea) Pancreatitis Peptic ulcer Preoperative cardiovascular examination Presence of stent in coronary artery (~02/07/11) Pulmonary hypertension Schizoaffective disorder Schizophrenia Sleep apnea Smoker Spinal stenosis of lumbar region at multiple levels Stage 2 moderate COPD by GOLD classification Suspected COVID-19 virus infection Takotsubo cardiomyopathy Thyroid nodule Tobacco abuse Ulcer Vitamin D deficiency Home Medications atorvastatin 80 mg tablet 80 mg PO QHS cholesterol 08/22/15 [History Last Taken 08/03/21] pregabalin 75 mg capsule 75 mg PO TID PAIN 03/08/18 [History Last Taken 08/03/21] risperidone 4 mg tablet 4 mg PO QHS sleep 03/08/18 [History Last Taken 08/04/21] trazodone 100 mg tablet 200 mg PO QHS PRN Insomnia 03/08/18 [History Last Taken 08/04/21] buspirone 30 mg tablet 30 mg PO BID anxiety 06/27/19 [History Last Taken 08/03/21] clopidogrel 75 mg tablet 75 mg PO DAILY blood thinner 07/31/20 [History Last Taken 08/03/21] escitalopram oxalate 20 mg tablet 20 mg PO DAILY mental health 11/14/20 [History Last Taken 08/03/21] fluticasone propionate 230 mcg-salmeterol 21 mcg/actuation HFA inhaler (Advair HFA) 2 puff inhalation BID SOB 11/14/20 [History Last Taken 08/05/21] promethazine 25 mg tablet 25 mg PO BID PRN PRN Nausea 11/14/20 [History Last Taken 08/04/21] potassium chloride 20 mEq tablet,extended release (K-Tab) 40 meq PO DAILY potassium replacement 01/13/21 [History Last Taken 08/05/21] albuterol sulfate 2.5 mg/3 mL (0.083 %) solution for nebulization 2.5 mg (3 mL) inhalation Q4H PRN Sob &/Or Wheezing #180 mL 05/25/21 [Rx Last Taken Unknown] pantoprazole 40 mg tablet,delayed release 40 mg PO BID gerd 08/05/21 [History Last Taken 08/03/21] sucralfate 1 gram tablet 1 g PO Q6H stomach 08/05/21 [History Last Taken 08/04/21] metoprolol succinate 25 mg tablet,extended release 24 hr 25 mg PO DAILY #60 tabs 08/06/21 [Rx Last Taken Unknown] albuterol sulfate 90 mcg/actuation aerosol inhaler 2 puff inhalation Q4H PRN PRN SOB &/or Wheezing #8.5 grams 03/03/22 [Rx Last Taken Unknown] fluticasone propionate 50 mcg/actuation nasal spray,suspension 1 spray intranasal BID allergies #16 grams 06/29/22 [Rx Last Taken Unknown] montelukast 10 mg tablet 10 mg PO DAILY pain #90 tabs 06/29/22 [Rx Last Taken Unknown] amlodipine 10 mg tablet 10 mg PO DAILY 07/22/22 [History Last Taken Unknown] apixaban 5 mg tablet (Eliquis) 5 mg PO BID 07/22/22 [History Last Taken Unknown] dicyclomine 20 mg tablet 20 mg PO 4X/DAY 07/22/22 [History Last Taken Unknown] ferrous sulfate 325 mg (65 mg iron) tablet 325 mg PO QODAY 07/22/22 [History Last Taken Unknown] furosemide 20 mg tablet (Lasix) 20 mg PO DAILY 07/22/22 [History Last Taken Unknown] glimepiride 2 mg tablet 2 mg PO BID 07/22/22 [History Last Taken Unknown] insulin glargine 100 unit/mL (3 mL) subcutaneous pen (Lantus Solostar U-100 Insulin) 40 unit subcut BID 07/22/22 [History Last Taken Unknown] insulin lispro 100 unit/mL subcutaneous pen (Humalog KwikPen (U-100) Insulin) 10 unit subcut TID 07/22/22 [History Last Taken Unknown] lamotrigine 25 mg tablet 25 mg PO QODAY 07/22/22 [History Last Taken Unknown] lisinopril 20 mg tablet 20 mg PO QHS 07/22/22 [History Last Taken Unknown] mirabegron 25 mg tablet,extended release 24 hr (Myrbetriq) 25 mg PO DAILY 07/22/22 [History Last Taken Unknown] omeprazole 20 mg capsule,delayed release 20 mg PO DAILY 07/22/22 [History Last Taken Unknown] ondansetron 4 mg disintegrating tablet 4 mg PO Q6H PRN Outbreak 07/22/22 [History Last Taken Unknown] sucralfate 1 gram tablet (Carafate) 1 g PO 4X/DAY 07/22/22 [History Last Taken Unknown] tiotropium bromide 2.5 mcg/actuation mist for inhalation (Spiriva Respimat) 2 puff inhalation DAILY 07/22/22 [History Last Taken Unknown] tizanidine 4 mg capsule 4 mg PO Q8H PRN Muscle Spasm 07/22/22 [History Last Taken Unknown] hydrocodone-acetaminophen 5-325mg 5mg-325mg 1 tab PO Q6H PRN PRN Pain 3 days #10 TABLETS 07/27/22 [Rx Last Taken Unknown] doxycycline hyclate 100 mg tablet 100 mg PO BID #20 tabs 08/10/22 [Rx Last Taken Unknown] prednisone 10 mg tablet 10 mg PO QDAY #30 tabs 08/10/22 [Rx Last Taken Unknown] Allergy/AdvReac Type Severity Reaction Status Date / Time tramadol [From [facility]] Allergy Severe Blisters, Verified 07/27/22 13:36 itching amoxicillin Allergy Itching Verified 07/27/22 13:36 erythromycin base Allergy Unknown Verified 07/27/22 13:36 methadone Allergy Itching Verified 07/27/22 13:36 metolazone Allergy Unknown Verified 07/27/22 13:36 Penicillins Allergy Hives Verified 07/27/22 13:36 Sulfa (Sulfonamide Allergy Hives Verified 07/27/22 13:36 Antibiotics) clarithromycin [From Biaxin] AdvReac Nausea Verified 07/27/22 13:36 ibuprofen AdvReac 3 BLEEDING Verified 07/27/22 13:36 ULCERS morphine AdvReac HEADACHE Verified 07/27/22 13:36 oxycodone [From Percocet] AdvReac Itching Verified 07/27/22 13:36 Family History Mother Heart disease Cancer uterine Father Hypertension Arthritis Hyperlipemia Grandmother Breast cancer Heart disease Grandfather Heart disease Sister Hypertension Surgical History History of appendectomy History of carpal tunnel surgery of left wrist History of cholecystectomy History of gastric bypass History of gastric bypass History of right ankle surgery history of right hip surgery History of tonsillectomy Presence of coronary angioplasty implant and graft (~02/07/11) Social History household members: none Smoking Status: Current every day smoker tobacco type: cigarettes alcohol intake: never substance use type: does not use caffeine: Yes (occasional) what type of physical activity do you participate in: none ROS ROS Narrative Denies any chest pain did not report any lower extremity swelling or nausea vomiting. All other systems reviewed and essentially negative as above in the body of the history. Vital Signs Vital Signs Vital Signs: 08/16/22 11:58 08/16/22 12:05 08/16/22 12:05 Temperature 36.6 C 36.9 C Temperature Source Temporal Oral Pulse Rate 80 89 Respiratory Rate 20 H 22 H Respiratory Effort Respiratory Depth Respiratory Pattern Blood Pressure 142/81 H 154/86 H Blood Pressure Mean 101 108 Pulse Ox 90 91 Oxygen Delivery Method Nasal Cannula Nasal Cannula Oxygen Flow Rate (L/min) 5 5 08/16/22 12:09 08/16/22 13:49 08/16/22 14:34 Temperature 36.1 C L 35.7 C L Temperature Source Temporal Temporal Pulse Rate 85 81 Respiratory Rate 18 20 H Respiratory Effort Short of Breath Labored Respiratory Depth Shallow Respiratory Pattern Irregular Blood Pressure 179/95 H 179/95 H Blood Pressure Mean 123 123 Pulse Ox 93 92 Oxygen Delivery Method Nasal Cannula Nasal Cannula Nasal Cannula Oxygen Flow Rate (L/min) 5 5 08/16/22 13:12 08/16/22 14:17 08/16/22 16:25 Temperature Temperature Source Pulse Rate 88 24 L 88 Respiratory Rate 24 H 27 H 25 H Respiratory Effort Respiratory Depth Respiratory Pattern Tachypnea Tachypnea Tachypnea Blood Pressure Blood Pressure Mean Pulse Ox Oxygen Delivery Method Oxygen Flow Rate (L/min) 08/16/22 16:44 Temperature 36.1 C L Temperature Source Temporal Pulse Rate 94 Respiratory Rate 20 H Respiratory Effort Respiratory Depth Respiratory Pattern Blood Pressure 153/90 H Blood Pressure Mean 111 Pulse Ox 92 Oxygen Delivery Method High Flow Oxygen Flow Rate (L/min) 8 Weight Weight: 102.7 kg Body Mass Index (BMI) 41.4 Physical Exam Narrative General exam. Middle-aged woman, appears older than stated age, chronically ill-appearing, acutely ill-appearing, morbidly obese, dyspneic, in respiratory distress, coughing 3+, irritable Neck. Neck is supple HEENT. Oral mucosa moist no pallor jaundice and no cyanosis Lungs. Minimal expiratory wheezing bilaterally, fine crackles bilaterally Abdomen. 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 Conscious alert and oriented x3. Cranial nerves II to XII grossly intact. Results Lab / Micro Data Result Diagrams: 08/16/22 11:40 08/16/22 11:40 Labs: Laboratory Results - last 24 hr 08/16/22 11:40: WBC 20.6 H, RBC 3.93 L, Hgb 10.7 L, Hct 32.8 L, MCV 83.5, MCH 27.2, MCHC 32.6, RDW Std Deviation 52.4 H, RDW Coeff of [place] 17.0 H, Plt Count 335, MPV 9.3, Immature Gran % (Auto) 0.400, Neut % (Auto) 92.4 H, Lymph % (Auto) 1.7 L, [place] % (Auto) 5.1, Eos % (Auto) 0.1, Baso % (Auto) 0.3, Absolute Neuts (auto) 19.0 H, Absolute Lymphs (auto) 0.35 L, Nucleated RBC % 0, Differential Comment SCANNED 08/16/22 11:40: Sodium 127 L, Potassium 4.4, Chloride 96 L, Carbon Dioxide 24.0, Anion Gap 7, BUN 11, Creatinine 0.88, Estim Creat Clear Calc 55.79, Est GFR (MDRD) Af Amer 85, Est GFR (MDRD) Non-Af 70, BUN/Creatinine Ratio 12.4, Glucose 286 H, Calcium 10.7 H, Total Bilirubin 0.90, AST 60 H, ALT 71 H, Alkaline Phosphatase 256 H, Total Protein 7.4, Albumin 2.6 L, Globulin 4.8 H, Albumin/Globulin Ratio 0.5 L 08/16/22 11:40: Lactic Acid 1.9 08/16/22 11:40: B-Natriuretic Peptide 318.7 H ABG Data ABG results: ABG 08/16/22 08/16/22 14:10 15:46 Specimen Type ART ART Sample Site R Brach R Radial pH 7.40 7.37 Bicarbonate Actual 23.9 24.7 Total CO2 25 26 Base Excess -1 -1 O2 Saturation 88 L 60 L ABG pCO2 38.7 42.5 ABG pO2 55 L 32 L* Ethan Test Positive O2 Delivery Device Cannula HFNC Liter Flow 5.0 5.0 Crit Call To/Read Back Yes Blood Gas Notified Whom dr montes Radiology Impression Chest X-Ray 08/16/22 13:00 IMPRESSION: Patchy bilateral airspace disease more prominent in the left perihilar region. This may represent either pneumonia versus CHF. Follow-up recommended. Electronically Signed: Manuelito Silva MD at 13:17 EDT , Chest x-ray personally viewed. Chest x-ray personally viewed and showing bilateral patchy infiltrates. Assessment & Plan Assessment/Plan (1) Bilateral pneumonia: PLAN: Plan 1. Acute COPD exacerbation versus pneumonia (bronchopneumonia) versus CHF exacerbation. No significant wheezing on examination noted. Will treat with inhaled bronchodilators, steroids and antibiotics. Echocardiogram. Check BNP. IV Lasix. 40 mg daily for now. Chest CT to further determine nature of her infiltrates and rule out metastatic disease. 2. Hyponatremia. Most likely related to hyperglycemia. Will monitor. Not symptomatic from this. 3. Type 2 diabetes. Hyperglycemia likely to worsen with steroids. We will continue patient's home regimen of antidiabetics. 4. Acute on chronic hypoxic respiratory failure. Secondary to #1 above. Will admit patient to the PCU. May benefit from noninvasive positive pressure ventilation with BiPAP. Check ABGs. Keep on telemetry. Charges/Coding Visit Charges Inpatient E&M: 06795 Init Hosp L3
[2022-08-16] MEDS: Budesonide Respules 0.5 MG/2 ML AMPUL.NEB. INHALATION (19:13)
[2022-08-16] MEDS: Acetaminophen 325 MG Tablet 650 MG PO (19:40)
[2022-08-16] MEDS: Furosemide 40 MG/4 ML Vial IV (19:40)
--- NOTE | 2022-08-16 20:19 | PCM.HP.STD ---
HPI - General General Date of Admission: 08/16/22 Chief Complaint: Cough and shortness of breath and exertional dyspnea HPI Narrative TALAT HAN, is a 57 F who presents [facility] Medical History Anemia Asthma Atherosclerotic heart disease of [place] coronary artery without angina pectoris Benign essential hypertension BiPAP (biphasic positive airway pressure) dependence Bleeding tendency Blood loss anemia CAD (coronary artery disease) Cardiac dysrhythmia Chest pain Chest pain at rest Chronic cough Chronic narcotic use Closed fracture of proximal end of fibula COPD (chronic obstructive pulmonary disease) Current use of insulin Delayed surgical wound healing Diabetes Dislocation of hip, right, closed Emphysema of lung Gastroesophageal reflux disease High cholesterol Hip osteoarthritis History of left heart catheterization (LHC) (~07/05/21) History of pulmonary embolism History of revision of total replacement of right hip joint History of stress test Hypertension Irregular heart beat Irritable bowel Morbid obesity Myocardial infarct On home oxygen therapy RACHEL (obstructive sleep apnea) Pancreatitis Peptic ulcer Preoperative cardiovascular examination Presence of stent in coronary artery (~02/07/11) Pulmonary hypertension Schizoaffective disorder Schizophrenia Sleep apnea Smoker Spinal stenosis of lumbar region at multiple levels Stage 2 moderate COPD by GOLD classification Suspected COVID-19 virus infection Takotsubo cardiomyopathy Thyroid nodule Tobacco abuse Ulcer Vitamin D deficiency Home Medications atorvastatin 80 mg tablet 80 mg PO QHS cholesterol 08/22/15 [History Last Taken 08/03/21] pregabalin 75 mg capsule 75 mg PO TID PAIN 03/08/18 [History Last Taken 08/03/21] risperidone 4 mg tablet 4 mg PO QHS sleep 03/08/18 [History Last Taken 08/04/21] trazodone 100 mg tablet 200 mg PO QHS PRN Insomnia 03/08/18 [History Last Taken 08/04/21] buspirone 30 mg tablet 30 mg PO BID anxiety 06/27/19 [History Last Taken 08/03/21] clopidogrel 75 mg tablet 75 mg PO DAILY blood thinner 07/31/20 [History Last Taken 08/03/21] escitalopram oxalate 20 mg tablet 20 mg PO DAILY mental health 11/14/20 [History Last Taken 08/03/21] fluticasone propionate 230 mcg-salmeterol 21 mcg/actuation HFA inhaler (Advair HFA) 2 puff inhalation BID SOB 11/14/20 [History Last Taken 08/05/21] promethazine 25 mg tablet 25 mg PO BID PRN PRN Nausea 11/14/20 [History Last Taken 08/04/21] potassium chloride 20 mEq tablet,extended release (K-Tab) 40 meq PO DAILY potassium replacement 01/13/21 [History Last Taken 08/05/21] albuterol sulfate 2.5 mg/3 mL (0.083 %) solution for nebulization 2.5 mg (3 mL) inhalation Q4H PRN Sob &/Or Wheezing #180 mL 05/25/21 [Rx Last Taken Unknown] pantoprazole 40 mg tablet,delayed release 40 mg PO BID gerd 08/05/21 [History Last Taken 08/03/21] sucralfate 1 gram tablet 1 g PO Q6H stomach 08/05/21 [History Last Taken 08/04/21] metoprolol succinate 25 mg tablet,extended release 24 hr 25 mg PO DAILY #60 tabs 08/06/21 [Rx Last Taken Unknown] albuterol sulfate 90 mcg/actuation aerosol inhaler 2 puff inhalation Q4H PRN PRN SOB &/or Wheezing #8.5 grams 03/03/22 [Rx Last Taken Unknown] fluticasone propionate 50 mcg/actuation nasal spray,suspension 1 spray intranasal BID allergies #16 grams 06/29/22 [Rx Last Taken Unknown] montelukast 10 mg tablet 10 mg PO DAILY pain #90 tabs 06/29/22 [Rx Last Taken Unknown] amlodipine 10 mg tablet 10 mg PO DAILY 07/22/22 [History Last Taken Unknown] apixaban 5 mg tablet (Eliquis) 5 mg PO BID 07/22/22 [History Last Taken Unknown] dicyclomine 20 mg tablet 20 mg PO 4X/DAY 07/22/22 [History Last Taken Unknown] ferrous sulfate 325 mg (65 mg iron) tablet 325 mg PO QODAY 07/22/22 [History Last Taken Unknown] furosemide 20 mg tablet (Lasix) 20 mg PO DAILY 07/22/22 [History Last Taken Unknown] glimepiride 2 mg tablet 2 mg PO BID 07/22/22 [History Last Taken Unknown] insulin glargine 100 unit/mL (3 mL) subcutaneous pen (Lantus Solostar U-100 Insulin) 40 unit subcut BID 07/22/22 [History Last Taken Unknown] insulin lispro 100 unit/mL subcutaneous pen (Humalog KwikPen (U-100) Insulin) 10 unit subcut TID 07/22/22 [History Last Taken Unknown] lamotrigine 25 mg tablet 25 mg PO QODAY 07/22/22 [History Last Taken Unknown] lisinopril 20 mg tablet 20 mg PO QHS 07/22/22 [History Last Taken Unknown] mirabegron 25 mg tablet,extended release 24 hr (Myrbetriq) 25 mg PO DAILY 07/22/22 [History Last Taken Unknown] omeprazole 20 mg capsule,delayed release 20 mg PO DAILY 07/22/22 [History Last Taken Unknown] ondansetron 4 mg disintegrating tablet 4 mg PO Q6H PRN Outbreak 07/22/22 [History Last Taken Unknown] sucralfate 1 gram tablet (Carafate) 1 g PO 4X/DAY 07/22/22 [History Last Taken Unknown] tiotropium bromide 2.5 mcg/actuation mist for inhalation (Spiriva Respimat) 2 puff inhalation DAILY 07/22/22 [History Last Taken Unknown] tizanidine 4 mg capsule 4 mg PO Q8H PRN Muscle Spasm 07/22/22 [History Last Taken Unknown] hydrocodone-acetaminophen 5-325mg 5mg-325mg 1 tab PO Q6H PRN PRN Pain 3 days #10 TABLETS 07/27/22 [Rx Last Taken Unknown] doxycycline hyclate 100 mg tablet 100 mg PO BID #20 tabs 08/10/22 [Rx Last Taken Unknown] prednisone 10 mg tablet 10 mg PO QDAY #30 tabs 08/10/22 [Rx Last Taken Unknown] Allergy/AdvReac Type Severity Reaction Status Date / Time tramadol [From Ultram] Allergy Severe Blisters, Verified 07/27/22 13:36 itching amoxicillin Allergy Itching Verified 07/27/22 13:36 erythromycin base Allergy Unknown Verified 07/27/22 13:36 methadone Allergy Itching Verified 07/27/22 13:36 metolazone Allergy Unknown Verified 07/27/22 13:36 Penicillins Allergy Hives Verified 07/27/22 13:36 Sulfa (Sulfonamide Allergy Hives Verified 07/27/22 13:36 Antibiotics) clarithromycin [From Biaxin] AdvReac Nausea Verified 07/27/22 13:36 ibuprofen AdvReac 3 BLEEDING Verified 07/27/22 13:36 ULCERS morphine AdvReac HEADACHE Verified 07/27/22 13:36 oxycodone [From Percocet] AdvReac Itching Verified 07/27/22 13:36 Family History Mother Heart disease Cancer uterine Father Hypertension Arthritis Hyperlipemia Grandmother Breast cancer Heart disease Grandfather Heart disease Sister Hypertension Surgical History History of appendectomy History of carpal tunnel surgery of left wrist History of cholecystectomy History of gastric bypass History of gastric bypass History of right ankle surgery history of right hip surgery History of tonsillectomy Presence of coronary angioplasty implant and graft (~02/07/11) Social History household members: none Smoking Status: Current every day smoker tobacco type: cigarettes alcohol intake: never substance use type: does not use caffeine: Yes (occasional) what type of physical activity do you participate in: none ROS ROS Narrative Denies any chest pain did not report any lower extremity swelling or nausea vomiting. All other systems reviewed and essentially negative as above in the body of the history. Constitutional Constitutional: Reports chills and fever(s); Denies weight loss Eyes Eyes: Denies blurry vision, change in vision or diplopia ENT HEENT: Denies ear pain, rhinorrhea or sore throat Cardiovascular Cardiovascular: Denies chest pain, orthopnea, palpitations, paroxysmal nocturnal dyspnea or racing heartbeat Respiratory/Chest Respiratory/Chest: Reports cough, dyspnea and dyspnea on exertion Gastrointestinal Gastrointestinal: Reports nausea; Denies abdominal pain, constipation, diarrhea or melena Genitourinary Genitourinary: Denies dysuria, hematuria or urinary frequency Musculoskeletal Musculoskeletal: Denies arthralgias, back pain, myalgias or neck pain Integumentary Integumentary: Denies rash Neurologic Neurologic: Reports weakness; Denies headache(s) or paresthesias Psychiatric Psychiatric: Reports anxiety Endocrine Endocrinology: Denies cold intolerance or heat intolerance Hematologic/Lymphatic Hematologic/Lymphatic: Denies easy bleeding or easy bruising Vital Signs Vital Signs Vital Signs: 08/16/22 11:58 08/16/22 12:05 08/16/22 12:05 Temperature 97.8 F 98.4 F Temperature Source Temporal Oral Pulse Rate 80 89 Respiratory Rate 20 H 22 H Respiratory Effort Respiratory Depth Respiratory Pattern Blood Pressure 142/81 H 154/86 H Blood Pressure Mean 101 108 Blood Pressure Source Blood Pressure Position Blood Pressure Location Pulse Ox 90 91 Oxygen Delivery Method Nasal Cannula Nasal Cannula Oxygen Flow Rate (L/min) 5 5 Fraction of Inspired Oxygen (FIO2) 08/16/22 12:09 08/16/22 13:49 08/16/22 14:34 Temperature 97.0 F L 96.3 F L Temperature Source Temporal Temporal Pulse Rate 85 81 Respiratory Rate 18 20 H Respiratory Effort Short of Breath Labored Respiratory Depth Shallow Respiratory Pattern Irregular Blood Pressure 179/95 H 179/95 H Blood Pressure Mean 123 123 Blood Pressure Source Blood Pressure Position Blood Pressure Location Pulse Ox 93 92 Oxygen Delivery Method Nasal Cannula Nasal Cannula Nasal Cannula Oxygen Flow Rate (L/min) 5 5 Fraction of Inspired Oxygen (FIO2) 08/16/22 13:12 08/16/22 14:17 08/16/22 16:25 Temperature Temperature Source Pulse Rate 88 24 L 88 Respiratory Rate 24 H 27 H 25 H Respiratory Effort Respiratory Depth Respiratory Pattern Tachypnea Tachypnea Tachypnea Blood Pressure Blood Pressure Mean Blood Pressure Source Blood Pressure Position Blood Pressure Location Pulse Ox Oxygen Delivery Method Oxygen Flow Rate (L/min) Fraction of Inspired Oxygen (FIO2) 08/16/22 16:44 08/16/22 17:35 08/16/22 17:26 Temperature 97.0 F L 99.0 F Temperature Source Temporal Temporal Pulse Rate 94 89 82 Respiratory Rate 20 H 12 37 H Respiratory Effort Respiratory Depth Respiratory Pattern Tachypnea Blood Pressure 153/90 H 189/120 H Blood Pressure Mean 111 143 Blood Pressure Source Monitor Blood Pressure Position Semi-Fowlers Blood Pressure Location Left Arm Pulse Ox 92 97 93 Oxygen Delivery Method High Flow Bi-pap Oxygen Flow Rate (L/min) 8 Fraction of Inspired Oxygen (FIO2) 40 40 08/16/22 17:26 08/16/22 17:00 08/16/22 18:00 Temperature 97.8 F Temperature Source Temporal Pulse Rate 96 105 H Respiratory Rate 20 H Respiratory Effort Normal Non-Labored Short of Breath Respiratory Depth Normal Respiratory Pattern Blood Pressure 163/95 H Blood Pressure Mean 117 Blood Pressure Source Blood Pressure Position Blood Pressure Location Pulse Ox 93 95 95 Oxygen Delivery Method Bi-pap High Flow High Flow Oxygen Flow Rate (L/min) 10 10 Fraction of Inspired Oxygen (FIO2) 40 08/16/22 18:00 08/16/22 19:00 08/16/22 19:00 Temperature 98.8 F Temperature Source Temporal Pulse Rate 105 H 105 H Respiratory Rate 20 H 24 H Respiratory Effort Respiratory Depth Respiratory Pattern Tachypnea Blood Pressure 158/100 H Blood Pressure Mean 119 Blood Pressure Source Blood Pressure Position Blood Pressure Location Pulse Ox 93 Oxygen Delivery Method High Flow High Flow Oxygen Flow Rate (L/min) 10 10 Fraction of Inspired Oxygen (FIO2) Weight Weight: 219 lb 2.232 oz Body Mass Index (BMI) 38.8 Physical Exam Narrative General exam. Middle-aged woman, appears older than stated age, chronically ill-appearing, acutely ill-appearing, morbidly obese, dyspneic, in respiratory distress, coughing 3+, irritable Neck. Neck is supple HEENT. Oral mucosa moist no pallor jaundice and no cyanosis Lungs. Minimal expiratory wheezing bilaterally, fine crackles bilaterally Abdomen. 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 Conscious alert and oriented x3. Cranial nerves II to XII grossly intact. Results Lab / Micro Data Result Diagrams: 08/16/22 11:40 08/16/22 11:40 Labs: Laboratory Results - last 24 hr 08/16/22 11:40: WBC 20.6 H, RBC 3.93 L, Hgb 10.7 L, Hct 32.8 L, MCV 83.5, MCH 27.2, MCHC 32.6, RDW Std Deviation 52.4 H, RDW Coeff of Kaycee 17.0 H, Plt Count 335, MPV 9.3, Immature Gran % (Auto) 0.400, Neut % (Auto) 92.4 H, Lymph % (Auto) 1.7 L, [place] % (Auto) 5.1, Eos % (Auto) 0.1, Baso % (Auto) 0.3, Absolute Neuts (auto) 19.0 H, Absolute Lymphs (auto) 0.35 L, Nucleated RBC % 0, Differential Comment SCANNED 08/16/22 11:40: Sodium 127 L, Potassium 4.4, Chloride 96 L, Carbon Dioxide 24.0, Anion Gap 7, BUN 11, Creatinine 0.88, Estim Creat Clear Calc 55.79, Est GFR (MDRD) Af Amer 85, Est GFR (MDRD) Non-Af 70, BUN/Creatinine Ratio 12.4, Glucose 286 H, Calcium 10.7 H, Total Bilirubin 0.90, AST 60 H, ALT 71 H, Alkaline Phosphatase 256 H, Total Protein 7.4, Albumin 2.6 L, Globulin 4.8 H, Albumin/Globulin Ratio 0.5 L 08/16/22 11:40: Lactic Acid 1.9 08/16/22 11:40: B-Natriuretic Peptide 318.7 H ABG Data ABG results: ABG 08/16/22 08/16/22 14:10 15:46 Specimen Type ART ART Sample Site R Brach R Radial pH 7.40 7.37 Bicarbonate Actual 23.9 24.7 Total CO2 25 26 Base Excess -1 -1 O2 Saturation 88 L 60 L ABG pCO2 38.7 42.5 ABG pO2 55 L 32 L* Ethan Test Positive O2 Delivery Device Cannula HFNC Liter Flow 5.0 5.0 Crit Call To/Read Back Yes Blood Gas Notified Whom dr montes Radiology Impression Chest X-Ray 08/16/22 13:00 IMPRESSION: Patchy bilateral airspace disease more prominent in the left perihilar region. This may represent either pneumonia versus CHF. Follow-up recommended. Electronically Signed: Manuelito Silva MD at 13:17 EDT , Chest CT 08/16/22 15:37 IMPRESSION: Cardiomegaly with pulmonary changes consistent with pulmonary edema versus pneumonia including atypical or viral pneumonia. Findings are of uncertain chronicity. Progression of chronic interstitial lung disease should not be dismissed as there were groundglass opacities on the prior study. Electronically Signed: Maxwell Barajas MD at 18:14 EDT Reading Location ID and State: [facility] / [place] Tel , Service support , Assessment & Plan Assessment/Plan (1) Bilateral pneumonia: PLAN: Plan 1. Acute COPD exacerbation versus pneumonia (bronchopneumonia) versus CHF exacerbation. No significant wheezing on examination noted. Will treat with inhaled bronchodilators, steroids and antibiotics. Echocardiogram. Check BNP. IV Lasix. 40 mg daily for now. Chest CT to further determine nature of her infiltrates and rule out metastatic disease. 2. Hyponatremia. Most likely related to hyperglycemia. Will monitor. Not symptomatic from this. 3. Type 2 diabetes. Hyperglycemia likely to worsen with steroids. We will continue patient's home regimen of antidiabetics. 4. Acute on chronic hypoxic respiratory failure. Secondary to #1 above. Will admit patient to the PCU. May benefit from noninvasive positive pressure ventilation with BiPAP. Check ABGs. Keep on telemetry.
[2022-08-16] MEDS: Lisinopril 20 MG Tablet PO (20:47)
[2022-08-16] MEDS: RisperiDONE 2 MG Tablet 4 MG PO (20:47)
[2022-08-16] MEDS: Methylprednisolone Sod Succ 40 MG/ML VIAL IV (20:47)
[2022-08-16] MEDS: APIXABAN 5 MG TABLET PO (20:47)
[2022-08-16] MEDS: Atorvastatin Calcium 80 MG Tablet PO (20:47)
[2022-08-16] MEDS: Glimepiride 2 MG Tablet PO (20:47)
[2022-08-16] MEDS: busPIRone 15 MG TABLET 30 MG PO (20:47)
[2022-08-16] MEDS: Pregabalin 75 MG Capsule PO (20:54)
[2022-08-16] MEDS: tiZANidine HCl 2 MG Tablet 4 MG PO (20:54)
[2022-08-16] MEDS: Insulin Lispro 100 UNIT/ML INSULN.PEN 10 UNIT SC (20:56)
[2022-08-16] MEDS: Insulin Glargine-YFGN 100 UNIT/ML Pen 40 UNIT SC (20:56)
[2022-08-16 21:16] LABS: Bedside Glucose 354 mg/dL (74-106)
[2022-08-16] MEDS: traZODone 100 MG Tablet 200 MG PO (21:29)
--- NOTE | 2022-08-16 22:00 | CPS ---
patient refused avaps at time of visit. Patient requested to stay on oxygen via nc. Patient currently on 10 lpm via high flow green nc. patient informed to notify staffing if she becomes short of breath.
[2022-08-16] MEDS: hydrALAZINE 25 MG Tablet PO (23:45)
[2022-08-17] VITALS (15 sets, daily range): BP systolic 95–155; BP diastolic 67–103; PULSE 76–96; RESP 15–20; TEMP 36.3–37.1; O2SAT 87–98; BMI 38.6
--- NOTE | 2022-08-17 01:02 | CPS ---
Rt in patients room for q6h aerosol treatment. Patient refused treatment at time of visit. Patient stated that she was fine and didnt need a treatment.
[2022-08-17] MEDS: Albuterol 2.5 MG/3 ML VIAL.NEB. INHALATION ×4 (01:36→18:54)
--- NOTE | 2022-08-17 01:38 | CPS ---
rt called to patients room due to sob. patient requested breathing treatment. Patient stated that she woke up and started coughing.
--- NOTE | 2022-08-17 01:39 | CPS ---
patient refused avaps at time of visit.
[2022-08-17] MEDS: Acetaminophen 325 MG Tablet 650 MG PO ×3 (04:14→20:50)
[2022-08-17] MEDS: Pregabalin 75 MG Capsule PO ×3 (05:56→20:49)
[2022-08-17] MEDS: tiZANidine HCl 2 MG Tablet 4 MG PO ×3 (05:56→20:42)
[2022-08-17] MEDS: Methylprednisolone Sod Succ 40 MG/ML VIAL IV ×3 (05:56→20:41)
[2022-08-17] MEDS: Insulin Lispro 100 UNIT/ML INSULN.PEN 10 UNIT SC ×3 (06:01→20:36)
[2022-08-17] MEDS: Ondansetron 4 MG/2 ML Vial IV (06:05)
[2022-08-17] MEDS: 0.9% Saline Lock 10 ML Syringe IV ×3 (06:05→13:30)
[2022-08-17 06:20] LABS: Bedside Glucose 256 mg/dL (74-106)
[2022-08-17] MEDS: Budesonide Respules 0.5 MG/2 ML AMPUL.NEB. INHALATION ×2 (07:07→18:54)
[2022-08-17 07:24] LABS: Absolute Lymphocyte Count 0.47 X10^3/uL (0.83-4.51); Absolute Neutrophil Count 17.9 X10^3/uL (2.0-7.7); Basophil# 0.02 X10^3/uL; Basophil% 0.1 % (0-1); Hemoglobin 10.5 g/dL (12.0-15.0); Lymphocyte # 0.47 X10^3/ul (0.83-4.51); Lymphocyte % 2.4 % (19-41); Mean Corp Hgb Conc 32.8 g/dL (32-36); Mean Corpuscular Hgb 26.6 pg (27.0-32.0); Mean Corpuscular Volume 81.2 fL (81-99); Mean Platelet Vol. 9.1 fl (6.2-12.0); Monocyte# 1.09 X10^3/uL; Monocyte% 5.6 % (0-10); NRBC Flagged by Analyzer 0 % (0-5); Neutrophil # 17.91 X10^3/uL (2.7-7.7); Neutrophil % 91.3 % (47-70); POSITIVE DIFFERENTIAL YES; Platelet Count 326 K/mm3 (150-450); RBC Distribution Width CV 16.7 % (11.6-14.6); RBC Distribution Width SD 49.6 fl (35.1-43.9); Red Blood Count 3.94 M/mm3 (4.2-5.4); White Blood Count 19.6 K/mm3 (4.4-11.0)
[2022-08-17 07:31] LABS: Differential Indicated SCAN CRITERIA MET
[2022-08-17 08:08] LABS: Differential Comment SCANNED
[2022-08-17 08:17] LABS: ALB/GLOB Ratio 0.5 RATIO (0.9-2.4); AST(SGOT) 52 U/L (15-37); Alanine Aminotransfer ALT/SGPT 69 U/L (13-56); Albumin, Serum 2.3 g/dL (3.2-5.0); Alkaline Phosphatase 222 U/L (45-117); Anion Gap 5 (5-15); BUN 11 mg/dL (7-18); BUN/Creat Ratio 15.7 RATIO (10-20); Calcium,Total 10.5 mg/dL (8.5-10.1); Chloride 96 mmol/L (98-107); EST Glomerular Filtration Rate 92 mL/min (>60); Est Glom Filt Rate - Afr Amer 111 mL/min (>60); Estimated Creatinine Clearance 73.35 ml/min; Globulin 4.7 g/dL (2.2-4.2); Glucose 246 mg/dL (74-106); Potassium 3.7 mmol/L (3.5-5.1); Sodium Level 131 mmol/L (136-145)
[2022-08-17] MEDS: Metoprolol(XL)Succ 25 MG Tablet PO (10:03)
[2022-08-17] MEDS: guaiFENesin Dm 10 ML UDC PO ×2 (10:03→16:06)
[2022-08-17] MEDS: Furosemide 40 MG/4 ML Vial IV (10:03)
[2022-08-17] MEDS: Mirabegron 25 MG TAB.ER.24H PO (10:04)
[2022-08-17] MEDS: Glimepiride 2 MG Tablet PO ×2 (10:04→20:41)
[2022-08-17] MEDS: Clopidogrel Bisulfate 75 MG Tablet PO (10:04)
[2022-08-17] MEDS: Montelukast 10 MG Tablet PO (10:04)
[2022-08-17] MEDS: Potassium Chloride Oral Tablet 20 MEQ 40 MEQ PO (10:04)
[2022-08-17] MEDS: busPIRone 15 MG TABLET 30 MG PO ×2 (10:04→20:41)
[2022-08-17] MEDS: APIXABAN 5 MG TABLET PO ×2 (10:05→20:42)
[2022-08-17] MEDS: amLODIPine 10 MG Tablet PO (10:05)
[2022-08-17] MEDS: Escitalopram Oxalate 20 MG Tablet PO (10:05)
[2022-08-17] MEDS: Insulin Glargine-YFGN 100 UNIT/ML Pen 40 UNIT SC ×2 (10:06→20:36)
[2022-08-17] MEDS: BENZOCAINE/MENTHOL 1 LOZENGE MUCOUS MEM ×2 (11:04→13:30)
[2022-08-17] MEDS: levoFLOXacin IV 750 MG/150 ML BAG 100 MG IV (11:05)
--- NOTE | 2022-08-17 11:50 | WOUNDNOTE ---
wound photo: left upper thigh/perineum
--- NOTE | 2022-08-17 12:05 | CASEMGMT ---
PAMELA ALVAREZ Face to Face with patient for initial transition planning/care coordination assessment. RN CM introduced self and role at [facility]. Patient lying in bed, alert and oriented. Patient willing to participate in assessment and is able to answer all questions appropriately. Care providers, pharmacy, and demographics verified. Patient wishes to discharge home with resumption of HHC with [facility]. Patient states she has no further needs or concerns at this time. CM to follow for discharge planning needs that may arise. PCP: Claudia Specialists: Case, investigations manager; Eric, oncologist; yoni Yung Preferred Pharmacy: [facility] Insurance: [employer] Prescription Benefit: yes Living Will/HPOA: yes, Jessica Payan LNOK: sisters Living Arrangements: Patient lives alone in a first floor apartment with no steps to enter. Patient states she is independent at home. Transportation: self, friend [employer] DME/HHC: Patient has shower chair, raised toilet, rollator, nebulizer, pulse ox and home oxygen through [facility] at 3lpm. Patient has been to [facility] in the past. Edwin is currently active with [facility]. Disposition Plan: Patient to discharge home with resumption of HHC, family support, and follow-up plans in place. Bianca BERKOWITZ, RN, CM
[2022-08-17 13:43] LABS: Bedside Glucose 368 mg/dL (74-106)
[2022-08-17 14:35] LABS: Erythrocyte Sedimentation Rate 105 mm/hr (0-30)
[2022-08-17] MEDS: HYDROcodone Bitartrate/Apap 5/325 Tablet PO ×2 (15:52→21:56)
--- NOTE | 2022-08-17 15:54 | PN_ITS ---
Subjective Subjective Patient seen and examined. She complained of wheezing. She said her shortness of breath had improved. She denied any fever,chills, cough, chest pain, palpitations, dizziness, nausea, vomiting or diarrhea. Review of systems is otherwise negative. Objective Data Objective Data Vital Signs: Vital Signs Temp Pulse Resp BP Pulse Ox O2 Del Method O2 Flow Rate 98.7 F 94 18 95/67 92 Nasal Cannula 8 08/17/22 13:45 08/17/22 13:45 08/17/22 13:45 08/17/22 13:45 08/17/22 13:45 08/17/22 13:45 08/17/22 13:45 FiO2 40 08/16/22 17:35 Oxygen Flow Rate (L/min) 8 Oxygen Delivery Method Nasal Cannula Weight: 218 lb 4.122 oz Body Mass Index (BMI) 38.6 Intake & Output: Intake and Output for Last 24 Hours 08/15/22 08/16/22 08/17/22 23:59 23:59 23:59 Intake Total 1590 / 1590 1125 / 1125 Output Total 2700 / 2700 1650 / 1650 Balance -1110 / -1110 -525 / -525 Lab / Micro Data Result Diagrams: 08/17/22 06:50 08/17/22 06:50 Labs: Laboratory Results - last 24 hr 08/16/22 11:40: B-Natriuretic Peptide 318.7 H 08/16/22 20:55: POC Glucose 354 H 08/17/22 06:01: POC Glucose 256 H 08/17/22 06:50: WBC 19.6 H, RBC 3.94 L, Hgb 10.5 L, Hct 32.0 L, MCV 81.2, MCH 26.6 L, MCHC 32.8, RDW Std Deviation 49.6 H, RDW Coeff of Kaycee 16.7 H, Plt Count 326, MPV 9.1, Immature Gran % (Auto) 0.600, Neut % (Auto) 91.3 H, Lymph % (Auto) 2.4 L, [place] % (Auto) 5.6, Eos % (Auto) 0.0, Baso % (Auto) 0.1, Absolute Neuts (auto) 17.9 H, Absolute Lymphs (auto) 0.47 L, Nucleated RBC % 0, Differential Comment SCANNED, ESR 105 H 08/17/22 06:50: Sodium 131 L, Potassium 3.7, Chloride 96 L, Carbon Dioxide 30.0, Anion Gap 5, BUN 11, Creatinine 0.70, Estim Creat Clear Calc 73.35, Est GFR (MDRD) Af Amer 111, Est GFR (MDRD) Non-Af 92, BUN/Creatinine Ratio 15.7, Glucose 246 H, Calcium 10.5 H, Total Bilirubin 0.60, AST 52 H, ALT 69 H, Alkaline Phosphatase 222 H, C-React Prot Ext Range 275.00 H, Total Protein 7.0, Albumin 2.3 L, Globulin 4.7 H, Albumin/Globulin Ratio 0.5 L 08/17/22 06:50: Procalcitonin 19.40 H 08/17/22 13:20: POC Glucose 368 H ABG Data ABG results: ABG 08/16/22 15:46 Specimen Type ART Sample Site R Radial pH 7.37 Bicarbonate Actual 24.7 Total CO2 26 Base Excess -1 O2 Saturation 60 L ABG pCO2 42.5 ABG pO2 32 L* Ethan Test Positive O2 Delivery Device HFNC Liter Flow 5.0 Crit Call To/Read Back Yes Blood Gas Notified Whom dr montes Radiography Diagnostic Testing: Radiology Impression Chest CT 08/16/22 15:37 IMPRESSION: Cardiomegaly with pulmonary changes consistent with pulmonary edema versus pneumonia including atypical or viral pneumonia. Findings are of uncertain chronicity. Progression of chronic interstitial lung disease should not be dismissed as there were groundglass opacities on the prior study. Electronically Signed: Maxwell Barajas MD at 18:14 EDT , Echocardiogram 08/16/22 15:37 Interpretation Summary The estimated ejection fraction is 70 %. Trivial aortic valve insufficiency. Ordering Physician: Jessica Johnson Performed By: Susan Lau, CAITLYN Physical Exam Const alert, oriented x3 and no apparent distress Constitutional Narrative: obese HEENT normocephalic, head/scalp atraumatic and moist oral mucous membranes Eyes PERRL and EOMs intact bilaterally Neck no lymphadenopathy, supple and no JVD Lymph Lymphatic: no lymphadenopathy noted Resp Resp Narrative: diminished breath sounds bibasally, no wheezes or crackles. On 10L of oxygen by nasal canula Cardio regular rate, regular rhythm, S1 normal heart sound, S2 normal heart sound and no murmurs GI normal to inspection, nondistended, normoactive bowel sounds, soft to palpation, non-tender and non-distended Extremity normal capillary refill, no clubbing, cyanosis or edema and no calf tenderness Skin General Skin Exam: no breakdown and turgor normal Neuro CN's II-XII intact bilaterally, no focal motor deficits, no sensory deficits noted and deep tendon reflexes 2+ bilaterally Motor Exam: strength 5/5 throughout Psych thought process normal and cooperative Appearance: appropriate Assessment & Plan Assessment/Plan (1) Acute respiratory failure with hypoxia: (2) Bilateral pneumonia: PLAN: Plan #Acute on chronic hypoxic respiratory failure due to bilateral pneumonia and CHF exacerbation * curerently on IV lasix as well as IV levquin * on 10L of oxygen. Titrate oxygen to maintain sats >90% * breathing treatment with bronchodilators * sputum cultures pending * CT chest showed: * wbc mildly elevated at 19.6 * #Hyponatremia: resolved #TYpe 2 diabetes mellitus * On Lantus 40 units twice daily. Insulin sliding scale. Accu-Cheks ACHS. * #Hypertension: On lisinopril and metoprolol as well as amlodipine #COPD: n breathing treatment with bronchodilators. #History of PE: On Eliquis Super morbid obesity: BMI is 38.7. Complicates acute care, expected recovery and prognosis. DVT Prophylaxis; on eliquis. Charges/Coding Visit Charges Inpatient E&M: 32168 Subs Hosp L2
--- NOTE | 2022-08-17 15:55 | CASEMGMT ---
SW met with patient. Introduced self and role at [facility]. Patient confirmed that since the extra food stamp money from [employer] went away she is having a hard time making her food stamps and money last. SW provided patient with food pantry and home delivered meals information. Patient went on to say that she just moved so she is not sure about paying utilities. Patient also said her neighbor who usually helps her with transportation is moving so she is not sure what she is going to do. SW then provided patient with transportation resources as well as information from [employer] for help with utilities. Aliya Virgen BENDING [employer]OC
[2022-08-17] MEDS: Mag Hydrox/Al Hydrox/Simeth 30 ML UDC PO (16:06)
[2022-08-17] MEDS: Juven (unflavored) Packet 1 PACKET PO (17:40)
[2022-08-17] MEDS: RisperiDONE 2 MG Tablet 4 MG PO (20:42)
[2022-08-17] MEDS: Lisinopril 20 MG Tablet PO (20:42)
[2022-08-17] MEDS: Atorvastatin Calcium 80 MG Tablet PO (20:42)
[2022-08-17 21:23] LABS: Bedside Glucose 360 mg/dL (74-106)
[2022-08-17] MEDS: Magnesium Hydroxide 30 ML UDC PO (21:43)
[2022-08-17] MEDS: MELATONIN 10 MG TABLET PO (21:55)
[2022-08-17] MEDS: NYSTATIN 500,000 UNIT/5 ML UDC 500000 UNIT PO (22:58)
[2022-08-17] MEDS: Ipratropium/Albuterol Sulfate 3 ML AMPUL.NEB INHALATION (23:16)
[2022-08-18] VITALS (12 sets, daily range): BP systolic 104–148; BP diastolic 66–102; PULSE 77–89; RESP 16–20; TEMP 36.6–37.1; O2SAT 93–99; BMI 38.5
[2022-08-18] MEDS: guaiFENesin Dm 10 ML UDC PO ×3 (01:44→17:15)
[2022-08-18] MEDS: BENZOCAINE/MENTHOL 1 LOZENGE MUCOUS MEM ×3 (01:45→13:43)
[2022-08-18] MEDS: Ipratropium/Albuterol Sulfate 3 ML AMPUL.NEB INHALATION ×4 (03:02→19:33)
--- NOTE | 2022-08-18 03:22 | CPS ---
Pt coughing a lot on own, doesn't want to do too many times for fear of starting another bad coughing spell.
[2022-08-18] MEDS: HYDROcodone Bitartrate/Apap 5/325 Tablet PO ×3 (03:56→17:15)
[2022-08-18] MEDS: 0.9% Saline Lock 10 ML Syringe IV ×5 (06:04→22:52)
[2022-08-18] MEDS: Methylprednisolone Sod Succ 40 MG/ML VIAL IV ×3 (06:04→22:52)
[2022-08-18] MEDS: Pregabalin 75 MG Capsule PO ×3 (06:04→22:17)
[2022-08-18] MEDS: Insulin Lispro 100 UNIT/ML INSULN.PEN 10 UNIT SC ×3 (06:04→19:05)
[2022-08-18] MEDS: tiZANidine HCl 2 MG Tablet 4 MG PO ×3 (06:04→22:28)
[2022-08-18 06:26] LABS: Bedside Glucose 277 mg/dL (74-106)
[2022-08-18] MEDS: Juven (unflavored) Packet 1 PACKET PO ×2 (09:46→18:43)
[2022-08-18] MEDS: busPIRone 15 MG TABLET 30 MG PO ×2 (09:46→22:25)
[2022-08-18] MEDS: Glimepiride 2 MG Tablet PO ×2 (09:47→22:25)
[2022-08-18] MEDS: APIXABAN 5 MG TABLET PO ×2 (09:47→22:26)
[2022-08-18] MEDS: amLODIPine 10 MG Tablet PO (09:47)
[2022-08-18] MEDS: Escitalopram Oxalate 20 MG Tablet PO (09:48)
[2022-08-18] MEDS: Clopidogrel Bisulfate 75 MG Tablet PO (09:48)
[2022-08-18] MEDS: Furosemide 40 MG/4 ML Vial IV (09:48)
[2022-08-18] MEDS: Mirabegron 25 MG TAB.ER.24H PO (09:48)
[2022-08-18] MEDS: lamoTRIgine 25 MG Tablet PO (09:48)
[2022-08-18] MEDS: Potassium Chloride Oral Tablet 20 MEQ 40 MEQ PO (09:48)
[2022-08-18] MEDS: Metoprolol(XL)Succ 25 MG Tablet PO (09:48)
[2022-08-18] MEDS: Montelukast 10 MG Tablet PO (09:48)
[2022-08-18] MEDS: Insulin Glargine-YFGN 100 UNIT/ML Pen 40 UNIT SC ×2 (09:49→22:21)
[2022-08-18] MEDS: NYSTATIN 500,000 UNIT/5 ML UDC 500000 UNIT PO ×3 (09:53→22:20)
[2022-08-18] MEDS: Magnesium Hydroxide 30 ML UDC PO (10:02)
[2022-08-18] MEDS: levoFLOXacin IV 750 MG/150 ML BAG 100 MG IV (10:04)
[2022-08-18] MEDS: Budesonide Respules 0.5 MG/2 ML AMPUL.NEB. INHALATION (10:22)
[2022-08-18 10:30] LABS: Absolute Lymphocyte Count 0.41 X10^3/uL (0.83-4.51); Absolute Neutrophil Count 20.2 X10^3/uL (2.0-7.7); Basophil# 0.02 X10^3/uL; Basophil% 0.1 % (0-1); Hematocrit 34.7 % (37-47); Hemoglobin 11.1 g/dL (12.0-15.0); Lymphocyte # 0.41 X10^3/ul (0.83-4.51); Lymphocyte % 1.9 % (19-41); Mean Corpuscular Hgb 26.7 pg (27.0-32.0); Mean Corpuscular Volume 83.6 fL (81-99); Mean Platelet Vol. 9.4 fl (6.2-12.0); Monocyte# 0.85 X10^3/uL; Monocyte% 3.9 % (0-10); NRBC Flagged by Analyzer 0 % (0-5); Neutrophil # 20.16 X10^3/uL (2.7-7.7); Neutrophil % 93.5 % (47-70); POSITIVE DIFFERENTIAL YES; Platelet Count 371 K/mm3 (150-450); Red Blood Count 4.15 M/mm3 (4.2-5.4); White Blood Count 21.6 K/mm3 (4.4-11.0)
[2022-08-18 10:36] LABS: Differential Indicated SCAN CRITERIA MET
[2022-08-18 10:45] LABS: Anion Gap 7 (5-15); BUN 16 mg/dL (7-18); BUN/Creat Ratio 23.8 RATIO (10-20); Calcium,Total 10.2 mg/dL (8.5-10.1); Chloride 97 mmol/L (98-107); Creatinine, Serum 0.67 mg/dL (0.55-1.02); EST Glomerular Filtration Rate 96 mL/min (>60); Est Glom Filt Rate - Afr Amer 116 mL/min (>60); Estimated Creatinine Clearance 76.63 ml/min; Glucose 172 mg/dL (74-106); Potassium 4.5 mmol/L (3.5-5.1); Sodium Level 130 mmol/L (136-145)
[2022-08-18 10:50] LABS: Hemoglobin A1c 6.8 % (3.8-5.6)
[2022-08-18] MEDS: Mag Hydrox/Al Hydrox/Simeth 30 ML UDC PO (11:36)
[2022-08-18 11:43] LABS: Bedside Glucose 342 mg/dL (74-106)
--- NOTE | 2022-08-18 12:34 | PN_ITS ---
Subjective Subjective Patient seen and examined. She is still short of breath. She had no active complaints. Review of systems is otherwise negative. She is down to 6L of oxygen. She is still coughing. Review of systems is otherwise negative. Objective Data Objective Data Vital Signs: Vital Signs Temp Pulse Resp BP Pulse Ox O2 Del Method O2 Flow Rate 97.9 F 84 20 H 124/70 H 93 Nasal Cannula 6 08/18/22 09:39 08/18/22 10:25 08/18/22 10:25 08/18/22 09:48 08/18/22 09:39 08/18/22 09:40 08/18/22 09:40 FiO2 40 08/16/22 17:35 Oxygen Flow Rate (L/min) 6 Oxygen Delivery Method Nasal Cannula Weight: 217 lb 9.54 oz Body Mass Index (BMI) 38.5 Intake & Output: Intake and Output for Last 24 Hours 08/16/22 08/17/22 08/18/22 23:59 23:59 23:59 Intake Total 1590 / 1590 1925 / 1925 Output Total 2700 / 2700 1950 / 2600 1650 / 1650 Balance -1110 / -1110 -25 / -675 -1650 / -1650 Lab / Micro Data Result Diagrams: 08/18/22 10:21 08/18/22 09:45 Labs: Laboratory Results - last 24 hr 08/17/22 06:50: ESR 105 H 08/17/22 13:20: POC Glucose 368 H 08/17/22 20:33: POC Glucose 360 H 08/18/22 06:03: POC Glucose 277 H 08/18/22 09:45: WBC Cancelled, Corrected WBC Cancelled, RBC Cancelled, Hgb Cancelled, Hct Cancelled, MCV Cancelled, MCH Cancelled, MCHC Cancelled, RDW Std Deviation Cancelled, RDW Coeff of Kaycee Cancelled, Plt Count Cancelled, MPV Cancelled, Immature Gran % (Auto) Cancelled, Neut % (Auto) Cancelled, Lymph % (Auto) Cancelled, [place] % (Auto) Cancelled, Eos % (Auto) Cancelled, Baso % (Auto) Cancelled, Absolute Neuts (auto) Cancelled, Absolute Lymphs (auto) Cancelled, Total Counted Cancelled, Neutrophils % (Manual) Cancelled, Band Neutrophils % Cancelled, Lymphocytes % (Manual) Cancelled, Monocytes % (Manual) Cancelled, Eosinophils % (Manual) Cancelled, Basophils % (Manual) Cancelled, Metamyelocytes % Cancelled, Myelocytes % Cancelled, Promyelocytes % Cancelled, Blast Cells % Cancelled, Plasma Cell % (Manual) Cancelled, Other Cells % Cancelled, Nucleated RBC % Cancelled, Nucleated RBCs/100 WBC Cancelled, Differential Comment Cancelled, Diff Path Review Cancelled, Hypersegmented Neuts Cancelled, Atypical Lymphocytes Cancelled, Reactive Lymphocytes Cancelled, Smudge Cells Cancelled, Toxic Granulation Cancelled, Toxic Vacuolation Cancelled, Dohle Bodies Cancelled, Mansoor Rods Cancelled, Platelet Estimate Cancelled, Plt Morphology Comment Cancelled, RBC Morphology Cancelled, Polychromasia Cancelled, Hypochromasia Cancelled, Poikilocytosis Cancelled, Basophilic Stippling Cancelled, Anisocytosis Cancelled, Microcytosis Cancelled, Macrocytosis Cancelled, Spherocytes Cancelled, Sickle Cells Cancelled, Target Cells Cancelled, Tear Drop Cells Cancelled, Ovalocytes Cancelled, Stomatocytes Cancelled, Brown[place] Bodies Cancelled, Radu Cells Cancelled, Bite Cells Cancelled, Crenated Cell Cancelled, Acanthocytes (Spur) Cancelled, Rouleaux Cancelled, Schistocytes Cancelled 08/18/22 09:45: Sodium 130 L, Potassium 4.5, Chloride 97 L, Carbon Dioxide 26.0, Anion Gap 7, BUN 16, Creatinine 0.67, Estim Creat Clear Calc 76.63, Est GFR (MDRD) Af Amer 116, Est GFR (MDRD) Non-Af 96, BUN/Creatinine Ratio 23.8 H, Glucose 172 H, Calcium 10.2 H 08/18/22 09:45: Hemoglobin A1c 6.8 H 08/18/22 10:21: WBC 21.6 H, RBC 4.15 L, Hgb 11.1 L, Hct 34.7 L, MCV 83.6, MCH 26.7 L, MCHC 32.0, RDW Std Deviation 52.0 H, RDW Coeff of Kaycee 17.0 H, Plt Count 371, MPV 9.4, Immature Gran % (Auto) 0.600, Neut % (Auto) 93.5 H, Lymph % (Auto) 1.9 L, [place] % (Auto) 3.9, Eos % (Auto) 0.0, Baso % (Auto) 0.1, Absolute Neuts (auto) 20.2 H, Absolute Lymphs (auto) 0.41 L, Nucleated RBC % 0 08/18/22 11:24: POC Glucose 342 H Micro: Microbiology 08/16/22 12:55 Blood Culture (Wb) - Anticubital Right Blood Culture - Preliminary No growth in 48 hours. 08/16/22 12:35 Blood Culture (Wb) - Left Forearm Blood Culture - Preliminary No growth in 48 hours. Radiography Diagnostic Testing: Radiology Impression Echocardiogram 08/16/22 15:37 Interpretation Summary The estimated ejection fraction is 70 %. Trivial aortic valve insufficiency. Ordering Physician: Jessica Johnson Performed By: Susan Lau RADHA Physical Exam Const alert, oriented x3 and no apparent distress Constitutional Narrative: obese HEENT normocephalic, head/scalp atraumatic and moist oral mucous membranes Eyes PERRL and EOMs intact bilaterally Neck no lymphadenopathy, supple and no JVD Lymph Lymphatic: no lymphadenopathy noted Resp Resp Narrative: diminished breath sounds bibasally, no wheezes or crackles. On 6L of oxygen by nasal canula Cardio regular rate, regular rhythm, S1 normal heart sound, S2 normal heart sound and no murmurs GI normal to inspection, nondistended, normoactive bowel sounds, soft to palpation, non-tender and non-distended Extremity normal capillary refill, no clubbing, cyanosis or edema and no calf tenderness Skin General Skin Exam: no breakdown and turgor normal Neuro CN's II-XII intact bilaterally, no focal motor deficits, no sensory deficits noted and deep tendon reflexes 2+ bilaterally Motor Exam: strength 5/5 throughout Psych thought process normal and cooperative Appearance: appropriate Assessment & Plan Assessment/Plan (1) Acute respiratory failure with hypoxia: (2) Bilateral pneumonia: PLAN: Plan #Acute on chronic hypoxic respiratory failure due to bilateral pneumonia and CHF exacerbation * curerently on IV lasix as well as IV levquin * now down to 6L of oxygen. * Titrate oxygen to maintain sats >90% * breathing treatment with bronchodilators * sputum cultures pending * CT chest showed cardiomegaly with pulmonary changes consistent with pulmonary edema vs pneumonia including atypical or viral pneumonia * 2D echo showed EF of 70% with normal diastole for age and no regional wall motion abnormalities * wbc mildly elevated at 19.6 * #Hyponatremia: sodium is 130 today. Being diuresed with IV lasix #TYpe 2 diabetes mellitus * On Lantus 40 units twice daily. Insulin sliding scale. Accu-Cheks ACHS. * #Hypertension: On lisinopril and metoprolol as well as amlodipine #COPD: n breathing treatment with bronchodilators. #History of PE: On Eliquis Super morbid obesity: BMI is 38.7. Complicates acute care, expected recovery and prognosis. DVT Prophylaxis; on eliquis. Charges/Coding Visit Charges Inpatient E&M: 96849 Subs Hosp L2
[2022-08-18] MEDS: Ondansetron 4 MG/2 ML Vial IV (13:33)
--- NOTE | 2022-08-18 19:33 | CPS ---
Pulmicort not given for patient to get back on schedule in A.M.
[2022-08-18] MEDS: RisperiDONE 2 MG Tablet 4 MG PO (22:26)
[2022-08-18] MEDS: Atorvastatin Calcium 80 MG Tablet PO (22:27)
[2022-08-18] MEDS: Lisinopril 20 MG Tablet PO (22:28)
[2022-08-18] MEDS: traZODone 100 MG Tablet 200 MG PO (22:33)
[2022-08-18] MEDS: MELATONIN 10 MG TABLET PO (22:33)
[2022-08-19] VITALS (8 sets, daily range): BP systolic 107–125; BP diastolic 71–79; PULSE 87–102; RESP 16–20; TEMP 36.6; O2SAT 3–98; BMI 38.6
[2022-08-19 00:21] LABS: Bedside Glucose 219 mg/dL (74-106)
[2022-08-19] MEDS: Albuterol 2.5 MG/3 ML VIAL.NEB. INHALATION (02:26)
[2022-08-19 06:40] LABS: Absolute Lymphocyte Count 0.58 X10^3/uL (0.83-4.51); Absolute Neutrophil Count 14.6 X10^3/uL (2.0-7.7); Basophil# 0.02 X10^3/uL; Basophil% 0.1 % (0-1); Eosinophil# 0.01 X10^3/uL; Eosinophils% 0.1 % (0-5); Hematocrit 35.3 % (37-47); Hemoglobin 11.2 g/dL (12.0-15.0); Lymphocyte # 0.58 X10^3/ul (0.83-4.51); Lymphocyte % 3.6 % (19-41); Mean Corp Hgb Conc 31.7 g/dL (32-36); Mean Corpuscular Hgb 26.5 pg (27.0-32.0); Mean Corpuscular Volume 83.6 fL (81-99); Mean Platelet Vol. 9.6 fl (6.2-12.0); Monocyte# 0.63 X10^3/uL; Monocyte% 3.9 % (0-10); NRBC Flagged by Analyzer 0 % (0-5); Neutrophil # 14.62 X10^3/uL (2.7-7.7); Neutrophil % 91.5 % (47-70); POSITIVE DIFFERENTIAL YES; Platelet Count 328 K/mm3 (150-450); RBC Distribution Width CV 17.1 % (11.6-14.6); Red Blood Count 4.22 M/mm3 (4.2-5.4)
[2022-08-19] MEDS: Pregabalin 75 MG Capsule PO (06:42)
[2022-08-19] MEDS: 0.9% Saline Lock 10 ML Syringe IV ×2 (06:43→10:26)
[2022-08-19] MEDS: Methylprednisolone Sod Succ 40 MG/ML VIAL IV (06:43)
[2022-08-19] MEDS: tiZANidine HCl 2 MG Tablet 4 MG PO (06:43)
[2022-08-19 07:05] LABS: Anion Gap 6 (5-15); BUN 22 mg/dL (7-18); BUN/Creat Ratio 31.6 RATIO (10-20); Calcium,Total 10.4 mg/dL (8.5-10.1); Chloride 96 mmol/L (98-107); EST Glomerular Filtration Rate 92 mL/min (>60); Est Glom Filt Rate - Afr Amer 112 mL/min (>60); Estimated Creatinine Clearance 73.35 ml/min; Glucose 226 mg/dL (74-106); Potassium 4.5 mmol/L (3.5-5.1); Sodium Level 134 mmol/L (136-145)
[2022-08-19 07:12] LABS: Differential Indicated SCAN CRITERIA MET
[2022-08-19 07:16] LABS: Differential Comment SCANNED
[2022-08-19] MEDS: Insulin Lispro 100 UNIT/ML INSULN.PEN 10 UNIT SC (08:01)
[2022-08-19] MEDS: Potassium Chloride Oral Tablet 20 MEQ 40 MEQ PO (08:02)
[2022-08-19] MEDS: Juven (unflavored) Packet 1 PACKET PO (08:02)
[2022-08-19] MEDS: APIXABAN 5 MG TABLET PO (08:03)
[2022-08-19] MEDS: busPIRone 15 MG TABLET 30 MG PO (08:03)
[2022-08-19] MEDS: Glimepiride 2 MG Tablet PO (08:03)
[2022-08-19] MEDS: Escitalopram Oxalate 20 MG Tablet PO (08:04)
[2022-08-19] MEDS: Furosemide 40 MG/4 ML Vial IV (08:04)
[2022-08-19] MEDS: Insulin Glargine-YFGN 100 UNIT/ML Pen 40 UNIT SC (08:04)
[2022-08-19] MEDS: Mirabegron 25 MG TAB.ER.24H PO (08:04)
[2022-08-19] MEDS: amLODIPine 10 MG Tablet PO (08:05)
[2022-08-19] MEDS: NYSTATIN 500,000 UNIT/5 ML UDC 500000 UNIT PO (08:05)
[2022-08-19] MEDS: Montelukast 10 MG Tablet PO (08:05)
[2022-08-19] MEDS: Metoprolol(XL)Succ 25 MG Tablet PO (08:05)
[2022-08-19] MEDS: Clopidogrel Bisulfate 75 MG Tablet PO (08:05)
[2022-08-19] MEDS: Acetaminophen 325 MG Tablet 650 MG PO (08:06)
[2022-08-19] MEDS: Budesonide Respules 0.5 MG/2 ML AMPUL.NEB. INHALATION (08:07)
[2022-08-19] MEDS: Ipratropium/Albuterol Sulfate 3 ML AMPUL.NEB INHALATION ×2 (08:08→11:15)
--- NOTE | 2022-08-19 10:15 | DS.PCM_ITS ---
Providers Date of Admission: 08/16/22 Date of Discharge: 08/19/22 Primary Care Physician: Dr. 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: Reason for Consult:: wounds Comments:: inner thighs Reason For Visit: BILATERAL PNEUMONIA, RESPIRATORY FAILURE Diagnosis Discharge Diagnosis (1) Acute respiratory failure with hypoxia: Status: Acute Code(s): J96.01 - Acute respiratory failure with hypoxia (2) Bilateral pneumonia: Status: Acute Code(s): J18.9 - Pneumonia, unspecified organism Medications at Discharge Home Medications atorvastatin 80 mg tablet 80 mg PO QHS cholesterol 08/22/15 pregabalin 75 mg capsule 75 mg PO TID PAIN 03/08/18 risperidone 4 mg tablet 4 mg PO QHS sleep 03/08/18 trazodone 100 mg tablet 200 mg PO QHS PRN Insomnia 03/08/18 buspirone 30 mg tablet 30 mg PO BID anxiety 06/27/19 clopidogrel 75 mg tablet 75 mg PO DAILY blood thinner 07/31/20 escitalopram oxalate 20 mg tablet 20 mg PO DAILY mental health 11/14/20 fluticasone propionate 230 mcg-salmeterol 21 mcg/actuation HFA inhaler (Advair HFA) 2 puff inhalation BID SOB 11/14/20 promethazine 25 mg tablet 25 mg PO BID PRN PRN Nausea 11/14/20 potassium chloride 20 mEq tablet,extended release (K-Tab) 40 meq PO DAILY potassium replacement 01/13/21 albuterol sulfate 2.5 mg/3 mL (0.083 %) solution for nebulization 2.5 mg (3 mL) inhalation Q4H PRN Sob &/Or Wheezing #180 mL 05/25/21 pantoprazole 40 mg tablet,delayed release 40 mg PO BID gerd 08/05/21 sucralfate 1 gram tablet 1 g PO Q6H stomach 08/05/21 albuterol sulfate 90 mcg/actuation aerosol inhaler 2 puff inhalation Q4H PRN PRN SOB &/or Wheezing #8.5 grams 03/03/22 fluticasone propionate 50 mcg/actuation nasal spray,suspension 1 spray intranasal BID allergies #16 grams 06/29/22 montelukast 10 mg tablet 10 mg PO DAILY pain #90 tabs 06/29/22 amlodipine 10 mg tablet 10 mg PO DAILY blood pressure 07/22/22 apixaban 5 mg tablet (Eliquis) 5 mg PO BID blood thinner 07/22/22 dicyclomine 20 mg tablet 20 mg PO 4X/DAY Check with primary doctor 07/22/22 ferrous sulfate 325 mg (65 mg iron) tablet 325 mg PO QODAY anemia 07/22/22 glimepiride 2 mg tablet 2 mg PO BID diabetes 07/22/22 insulin glargine 100 unit/mL (3 mL) subcutaneous pen (Lantus Solostar U-100 In sulin) 40 unit subcut BID diabetes 07/22/22 lamotrigine 25 mg tablet 100 mg PO DAILY Check with primary doctor 07/22/22 sucralfate 1 gram tablet (Carafate) 1 g PO 4X/DAY stomach 07/22/22 tiotropium bromide 2.5 mcg/actuation mist for inhalation (Spiriva Respimat) 2 puff inhalation DAILY copd 07/22/22 tizanidine 4 mg capsule 4 mg PO Q8H PRN Muscle Spasm 07/22/22 hydrocodone-acetaminophen 5-325mg 5mg-325mg 1 tab PO Q6H PRN PRN Pain 3 days #10 TABLETS 07/27/22 melatonin 10 mg tablet 10 mg PO QHS PRN PRN Insomnia 08/17/22 metoprolol succinate 50 mg tablet,extended release 24 hr 50 mg PO DAILY heart 08/17/22 furosemide 40 mg tablet (Lasix) 40 mg PO DAILY #30 tabs 08/19/22 levofloxacin 750 mg tablet 750 mg PO DAILY #5 tabs 08/19/22 prednisone 20 mg tablet 40 mg PO DAILY #10 tabs 08/19/22 Hospital Course Operations None Summary of Care Provided Minutes Spent on Discharge: 45 Hospital Course: Patient is a 57-year-old female with a past medical history as outlined was admitted through the ED on 08/16/2022 with a complaint of cough and shortness of breath as well as exertional dyspnea which have been going on for about 5 days. She had associated wheezing. She had been prescribed tigecycline and prednisone on outpatient basis but his symptoms have not improved. Patient was still smoking 2 packs of cigarettes daily. Chest x-ray showed bilateral patchy infiltrates and medical management presumptive pneumonia as well as COPD exacerbation and probable CHF exacerbation. She was diuresed with IV Lasix and placed on IV Solu-Medrol and IV Levaquin. She was also placed on breathing treatments bronchodilators. She was also treated for acute on chronic hypoxic respiratory failure. She was on 10 L of oxygen but was gradually weaned down to her baseline 3 L of oxygen. She felt better. She was discharged on 08/19/2022 on p.o. Levaquin for 5 days. She was counseled to quit smoking. She was also discharged on p.o. prednisone 40 mg daily for 5 days. 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 She is to follow- up with them within 1 to 2 weeks. Patient seen and examined prior to discharge. She felt much better and wanted to be discharged home. She had no active complaints. Review of systems otherwise negative. Labs and vitals reviewed. Home medication reviewed and reconciled. Physical Exam Const alert, oriented x3 and no apparent distress Constitutional Narrative: obese General Appearance: cooperative and comfortable HEENT normocephalic, head/scalp atraumatic, hearing grossly normal bilaterally and moist oral mucous membranes Mouth: oral and palatal mucosa normal Eyes PERRL and EOMs intact bilaterally Neck no lymphadenopathy, supple and no JVD Lymph Lymphatic: no lymphadenopathy noted and no lymphedema noted Resp Resp Narrative: diminished breath sounds bibasally, no wheezes or crackles. On 3L of oxygen by nasal canula Cardio regular rate, regular rhythm, S1 normal heart sound, S2 normal heart sound and no murmurs GI normal to inspection, nondistended, normoactive bowel sounds, soft to palpation, non-tender and non-distended Extremity normal to inspection, full ROM, normal capillary refill, no clubbing, cyanosis or edema and no calf tenderness Skin no rashes or lesions noted General Skin Exam: no breakdown and turgor normal Neuro oriented x3, CN's II-XII intact bilaterally, moves all extremities, no focal motor deficits, no sensory deficits noted and deep tendon reflexes 2+ bilaterally Sensorium / Orientation: awake and alert Motor Exam: strength 5/5 throughout Psych thought process normal and cooperative Appearance: appropriate Weight / BMI Weight Weight: 218 lb 0.595 oz Body Mass Index (BMI) 38.6 ABG / Lab / Microbiology Data Result Diagrams: 08/19/22 06:20 08/19/22 06:20 Laboratory: Laboratory Results - last 24 hr 08/18/22 09:45: Sodium 130 L, Potassium 4.5, Chloride 97 L, Carbon Dioxide 26.0, Anion Gap 7, BUN 16, Creatinine 0.67, Estim Creat Clear Calc 76.63, Est GFR (MDRD) Af Amer 116, Est GFR (MDRD) Non-Af 96, BUN/Creatinine Ratio 23.8 H, Glucose 172 H, Calcium 10.2 H 08/18/22 09:45: Hemoglobin A1c 6.8 H 08/18/22 10:21: WBC 21.6 H, RBC 4.15 L, Hgb 11.1 L, Hct 34.7 L, MCV 83.6, MCH 26.7 L, MCHC 32.0, RDW Std Deviation 52.0 H, RDW Coeff of Kaycee 17.0 H, Plt Count 371, MPV 9.4, Immature Gran % (Auto) 0.600, Neut % (Auto) 93.5 H, Lymph % (Auto) 1.9 L, [place] % (Auto) 3.9, Eos % (Auto) 0.0, Baso % (Auto) 0.1, Absolute Neuts (auto) 20.2 H, Absolute Lymphs (auto) 0.41 L, Nucleated RBC % 0 08/18/22 11:24: POC Glucose 342 H 08/18/22 22:19: POC Glucose 219 H 08/19/22 06:20: WBC 16.0 H, RBC 4.22, Hgb 11.2 L, Hct 35.3 L, MCV 83.6, MCH 26.5 L, MCHC 31.7 L, RDW Std Deviation 52.0 H, RDW Coeff of Kaycee 17.1 H, Plt Count 328, MPV 9.6, Immature Gran % (Auto) 0.800, Neut % (Auto) 91.5 H, Lymph % (Auto) 3.6 L, [place] % (Auto) 3.9, Eos % (Auto) 0.1, Baso % (Auto) 0.1, Absolute Neuts (auto) 14.6 H, Absolute Lymphs (auto) 0.58 L, Nucleated RBC % 0, Differential Comment SCANNED 08/19/22 06:20: Sodium 134 L, Potassium 4.5, Chloride 96 L, Carbon Dioxide 32.0, Anion Gap 6, BUN 22 H, Creatinine 0.70, Estim Creat Clear Calc 73.35, Est GFR (MDRD) Af Amer 112, Est GFR (MDRD) Non-Af 92, BUN/Creatinine Ratio 31.6 H, Glucose 226 H, Calcium 10.4 H Microbiology: Microbiology 08/16/22 12:55 Blood Culture (Wb) - Anticubital Right Blood Culture - Preliminary No growth in 48 hours. 08/16/22 12:35 Blood Culture (Wb) - Left Forearm Blood Culture - Preliminary No growth in 48 hours. D/C Instructions Discharge Diet: Low fat / Low cholesterol Weight Bearing Status: Weight bearing as tolerated Call your doctor if you observe: Fever of 101 or Higher, Shortness of breath, Dizziness, Swelling in the ankles and Chest pain Meaningful Use Info Meaningful Use Diagnoses (Choose all that apply): None applicable Discharge Plan Admission Admit Date/Time: 08/16/22 15:40 Primary Reason for Your Visit: respiratory failure, pneuonia, CHF exacerbation Attending Provider: Claudia Elliott Primary Care Provider: Janel Taylor Consulting Providers: Jessica Johnson Instructions Patient Instructions: ED Pneumonia (Adult), Heart Failure Additional Instructions / Restrictions: use oxygen 3L for shortness of breath as needed Discharge Orders/Prescriptions Prescriptions: New prednisone 20 mg tablet 40 mg PO DAILY Qty: 10 0RF levofloxacin 750 mg tablet 750 mg PO DAILY Qty: 5 0RF furosemide [Lasix] 40 mg tablet 40 mg PO DAILY Qty: 30 1RF Continued albuterol sulfate 2.5 mg /3 mL (0.083 %) solution for nebulization 2.5 mg inhalation Q4H PRN (Reason: Sob &/Or Wheezing) Qty: 180 3RF fluticasone propionate 50 mcg/actuation spray,suspension 1 spray INTRANASAL BID Qty: 16 11RF montelukast 10 mg tablet 10 mg PO DAILY Qty: 90 3RF atorvastatin 80 MG tablet 80 mg PO QHS Label Comments: cholesterol risperidone 4 mg tablet 4 mg PO QHS Label Comments: Take 1 tablet by mouth at bedtime trazodone 100 MG tablet 200 mg PO QHS PRN (Reason: Insomnia) pregabalin 75 MG capsule 75 mg PO TID buspirone 30 mg tablet 30 mg PO BID clopidogrel 75 mg tablet 75 mg PO DAILY promethazine 25 mg Tablet 25 mg PO BID PRN PRN (Reason: Nausea) escitalopram oxalate 20 mg Tablet 20 mg PO DAILY fluticasone propion-salmeterol [Advair HFA] 230-21 mcg/actuation Hfa Aerosol Inhaler 2 puff INHALATION BID potassium chloride [K-Tab] 20 mEq tablet extended release 40 meq PO DAILY sucralfate 1 gram tablet 1 g PO Q6H pantoprazole 40 mg tablet,delayed release (DR/EC) 40 mg PO BID sucralfate [Carafate] 1 gram Tablet 1 g PO 4X/DAY amlodipine 10 mg Tablet 10 mg PO DAILY dicyclomine 20 mg Tablet 20 mg PO 4X/DAY Eliquis 5 mg Tablet 5 mg PO BID glimepiride 2 mg Tablet 2 mg PO BID ferrous sulfate 325 mg (65 mg iron) Tablet 325 mg PO QODAY tizanidine 4 mg Capsule 4 mg PO Q8H PRN (Reason: Muscle Spasm) Spiriva Respimat 2.5 mcg/actuation Mist 2 puff INHALATION DAILY insulin glargine [Lantus Solostar U-100 Insulin] 100 unit/mL (3 mL) Insulin Pen 40 unit SUBCUT BID lamotrigine 25 mg Tablet 100 mg PO DAILY hydrocodone-acetaminophen 5-325 mg tablet 1 tab PO Q6H PRN PRN (Reason: Pain) 3 Days Qty: 10 0RF metoprolol succinate 50 mg Tablet Extended Release 24 Hr 50 mg PO DAILY melatonin 10 mg Tablet 10 mg PO QHS PRN PRN (Reason: Insomnia) albuterol sulfate 90 mcg/actuation HFA aerosol inhaler 2 puff inhalation Q4H PRN PRN (Reason: SOB &/or Wheezing ) Qty: 8.5 11RF Discontinued prednisone 10 mg tablet 10 mg PO QDAY Qty: 30 0RF Rx Instructions: take 4 tabs for three days, then 3 tabs for three days, then 2 tabs for three days, then 1 tab for 3 days doxycycline hyclate 100 mg tablet 100 mg PO BID Qty: 20 0RF Referrals / Follow Up: Janel Taylor MD [Primary Care Provider] - 08/26/22 2:50 pm Disposition Disposition (needs filled in before D/C Order can be placed): Home, Self Care Charges/Coding Visit Charges Inpatient E&M: 71895 Disch Hosp >30min
[2022-08-19] MEDS: levoFLOXacin IV 750 MG/150 ML BAG 100 MG IV (10:25)
--- NOTE | 2022-08-19 10:54 | PHA.DC.MC ---
Pharmacy Service has performed discharge medication reconciliation and counseling for this patient. 1. LEVOFLOXACIN 750MG PO DAILY X 5 DAYS 2. FUROSEMIDE 40MG PO DAILY The patient's discharge medication list was reviewed for discrepancies and discrepancies were resolved. Home Medications atorvastatin 80 mg tablet 80 mg PO QHS cholesterol 08/22/15 pregabalin 75 mg capsule 75 mg PO TID PAIN 03/08/18 risperidone 4 mg tablet 4 mg PO QHS sleep 03/08/18 trazodone 100 mg tablet 200 mg PO QHS PRN Insomnia 03/08/18 buspirone 30 mg tablet 30 mg PO BID anxiety 06/27/19 clopidogrel 75 mg tablet 75 mg PO DAILY blood thinner 07/31/20 escitalopram oxalate 20 mg tablet 20 mg PO DAILY mental health 11/14/20 fluticasone propionate 230 mcg-salmeterol 21 mcg/actuation HFA inhaler (Advair HFA) 2 puff inhalation BID SOB 11/14/20 promethazine 25 mg tablet 25 mg PO BID PRN PRN Nausea 11/14/20 potassium chloride 20 mEq tablet,extended release (K-Tab) 40 meq PO DAILY potassium replacement 01/13/21 albuterol sulfate 2.5 mg/3 mL (0.083 %) solution for nebulization 2.5 mg (3 mL) inhalation Q4H PRN Sob &/Or Wheezing #180 mL 05/25/21 pantoprazole 40 mg tablet,delayed release 40 mg PO BID gerd 08/05/21 sucralfate 1 gram tablet 1 g PO Q6H stomach 08/05/21 albuterol sulfate 90 mcg/actuation aerosol inhaler 2 puff inhalation Q4H PRN PRN SOB &/or Wheezing #8.5 grams 03/03/22 fluticasone propionate 50 mcg/actuation nasal spray,suspension 1 spray intranasal BID allergies #16 grams 06/29/22 montelukast 10 mg tablet 10 mg PO DAILY pain #90 tabs 06/29/22 amlodipine 10 mg tablet 10 mg PO DAILY blood pressure 07/22/22 apixaban 5 mg tablet (Eliquis) 5 mg PO BID blood thinner 07/22/22 dicyclomine 20 mg tablet 20 mg PO 4X/DAY Check with primary doctor 07/22/22 ferrous sulfate 325 mg (65 mg iron) tablet 325 mg PO QODAY anemia 07/22/22 glimepiride 2 mg tablet 2 mg PO BID diabetes 07/22/22 insulin glargine 100 unit/mL (3 mL) subcutaneous pen (Lantus Solostar U-100 Insulin) 40 unit subcut BID diabetes 07/22/22 lamotrigine 25 mg tablet 100 mg PO DAILY Check with primary doctor 07/22/22 sucralfate 1 gram tablet (Carafate) 1 g PO 4X/DAY stomach 07/22/22 tiotropium bromide 2.5 mcg/actuation mist for inhalation (Spiriva Respimat) 2 puff inhalation DAILY copd 07/22/22 tizanidine 4 mg capsule 4 mg PO Q8H PRN Muscle Spasm 07/22/22 hydrocodone-acetaminophen 5-325mg 5mg-325mg 1 tab PO Q6H PRN PRN Pain 3 days #10 TABLETS 07/27/22 melatonin 10 mg tablet 10 mg PO QHS PRN PRN Insomnia 08/17/22 metoprolol succinate 50 mg tablet,extended release 24 hr 50 mg PO DAILY heart 08/17/22 furosemide 40 mg tablet (Lasix) 40 mg PO DAILY #30 tabs 08/19/22 levofloxacin 750 mg tablet 750 mg PO DAILY #5 tabs 08/19/22 prednisone 20 mg tablet 40 mg PO DAILY #10 tabs 08/19/22 The patient was counseled on the following discharge medications and changes in medications for homegoing were reviewed. The Reason for Use, instructions for use, and potential side effects were reviewed for all new medications. The patient's questions regarding all of their medications were answered. The patient was able to verbally demonstrate an understanding of their discharge medications. Patient counseled by student ministries directorHermann.
[2022-08-19] MEDS: HYDROcodone Bitartrate/Apap 5/325 Tablet PO (11:17)
[2022-08-19 11:27] LABS: Bedside Glucose 221 mg/dL (74-106)
--- NOTE | 2022-08-19 11:43 | CASEMGMT ---
RN ANTONIO updated that patient will be discharging today. PAMELA ALVAREZ called [facility] to resume services, per iglesia Saeed is active with another agency. PAMELA ALVAREZ in to ask patient, patient does not recall agency but states wound center setup HHC. PAMELA ALVAREZ called [facility] wound center and verified HHC with [facility]. PAMELA ALVAREZ called and updated [facility] and resumption sent via [facility] by discharge assistant shift supervisor. PAMELA ALVAREZ updated that patient requires 3lpm for oxygen. RN ANTONIO received updated script and sent to [facility]. RN CM updated patient and discharge plan. Patient had no further questions or concerns at this time.
== END 2022-08-19 12:03 | disposition home health service (06) | DRG 193 ==
LOC: ED 14:05 → PCU 14:40
PROVIDERS: Admitting Provider Internal Medicine; Emergency Provider Emergency Medicine; PCP Family Medicine; Visit Provider Student in an Organized Health Care Education/Training Program
DX: J18.9 Pneumonia, unspecified organism (principal); J96.21 Acute and chronic respiratory failure with hypoxia; I50.33 Acute on chronic diastolic (congestive) heart failure; Z68.41 Body mass index [BMI] 40.0-44.9, adult; E87.1 Hypo-osmolality and hyponatremia; F25.9 Schizoaffective disorder, unspecified; E11.40 Type 2 diabetes mellitus with diabetic neuropathy, unspecified; I11.0 Hypertensive heart disease with heart failure; J43.9 Emphysema, unspecified; Z79.4 Long term (current) use of insulin; E66.01 Morbid (severe) obesity due to excess calories; E11.65 Type 2 diabetes mellitus with hyperglycemia; E78.00 Pure hypercholesterolemia, unspecified; I25.10 Atherosclerotic heart disease of native coronary artery without angina pectoris; J98.01 Acute bronchospasm; K21.9 Gastro-esophageal reflux disease without esophagitis; F17.210 Nicotine dependence, cigarettes, uncomplicated; Z99.81 Dependence on supplemental oxygen; Z68.38 Body mass index [BMI] 38.0-38.9, adult; Z79.51 Long term (current) use of inhaled steroids; Z79.02 Long term (current) use of antithrombotics/antiplatelets; Z95.5 Presence of coronary angioplasty implant and graft
CPT/HCPCS: 36415; 36600; 71045; 71250; 80048; 80053; 82803; 82962; 83036; 83605; 83880; 84145; 85025; 85652; 86140; 87040; 93005; 93306; 94002; 94640; 94668; 94762; 97110; 97162; 97166; 97530; 97535; 99252; 99285; Q9957; Q9967; A4216; C8929; G0463; J1940; J2405

== ENCOUNTER 2022-08-26 09:30 | Outpatient (RCR) | payer MEDICARE, SELFPAY ==
[2022-08-04 00:48] VITALS: BP 124/74; PULSE 77; TEMP 35.2; BMI 38.0
[2022-08-05 10:46] VITALS: BP 116/73; PULSE 91; TEMP 36.5; BMI 38.0
--- NOTE | 2022-08-05 14:53 | PCM.WC.PN ---
History of Present Illness Date of Service: 08/05/22 Chief Complaint: nonhealing ulcers of left medial thigh, perineum History of Wound: Crystal is a 56-year-old patient with history of diabetic neuropathy, bipolar, schizoaffective disorder, depression, hypertension, cardiac disease, obesity, excessive tobacco use that presents to the wound center today for treatment and evaluation of ulcers of her left medial thigh and perineum that have been present for approx. 3 months. Patient has known problems healing and has been seen at the wound center for previous non-healing wounds of her lower extremities. She continues to smoke and is smoking approximately 2 packs/day. She does not know the cause of the ulcers of her left thigh and perineum but thinks it may have been from an abrasion from sliding to get out of a chair. She has tried treatment with Nystatin powder, Nystatin cream and Calmoseptine but they have not improved. Dr. Taylor performed a punch biopsy on 06/24/22 and this did not show any sign of malignancy and showed changes associated with a chronic wound and no evidence of fungal infection. She has been unable to keep this area covered due to dressings not staying in place. She does have DM and this is controlled, most recent A1C was 6.8% on 11/26/21. 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 This recurred after treatment with antiviral a few weeks prior. The area is very painful per patient and the ulcer of the perineum drains moderate to heavy and the thigh drains light to moderate. She is incontinent of urine. She denies fever, chills, increased erythema, odor. Subjective Subjective Crystal returns today for evaluation and treatment of ulcers of her left groin area. She has been having a hard time with the dressings. They are not staying in place. She also is incontinent of urine. She finished Augmentin. Denies fever or chills. Pain is severe. Objective Data Objective Data Vital Signs: Vital Signs Temp Pulse BP 97.7 F L 91 116/73 08/05/22 10:46 08/05/22 10:46 08/05/22 10:46 Weight: 97.522 kg Body Mass Index (BMI) 38.0 Physical Exam Const alert, oriented x3 and no apparent distress General Appearance: cooperative and comfortable HEENT normocephalic and head/scalp atraumatic Resp normal respiratory effort Effort and Inspection: able to speak in complete sentences Cardio regular rate and regular rhythm Skin Skin Narrative: right groin with vesicular rash Wounds: wounds noted Wound Narrative: as in clinical panel Psych mental status grossly normal, thought process normal, cooperative and affect normal Debridement Note Debridement Note Wound debrided: Left medial posterior thigh Laterality: Left Wound Grade/Stage: Stage 3 Type of Debridement: Excisional debridement Anesthesia Used: 4% Lidocaine Solution, 5% Lidocaine Gel and Cetacaine Depth: Down to and including healthy tissue and in the subcutaneous layer Percentage of wound debrided: 100 Instrument Used: 7mm curette Tissue Removed: Yellow slough, devitalized tissue Severity: Fat Layer Exposed Amount of bleeding with debridement: Mild Bleeding Controlled with: Compression and gauze Patient tolerated procedure: Patient tolerated procedure well Post-Debridement Measurements and Additional Note: Post-Debridement Measurements/Treatment WC - Nurse 1 - General Ulcer Assessment Start: 08/05/22 10:45 Freq: Status: Active Protocol: LISY Activity Type Activity Date Activity User E-sign Co-sign Detail Recorded Client Recorded Date Recorded By Document 08/05/22 10:46 ESTEE [id number] 08/05/22 10:48 ESTEE 08/05/22 10:46 - Today's Visit Information Type of service Follow-up Visit (Physician/PRODUCTION ENGINE REPAIRER ) Arrival Mode Ambulatory Patient Identification Verified (Name & Yes ) Patient Requires Transmission-Based No Precautions Height and Weight Body Mass Index (BMI) 38.0 BMI Classification Obese Vital Signs Temperature (97.8 F-99.1 F) 97.7 F L Temperature Source Temporal Pulse Rate (60-100) 91 Pulse Location Monitor Blood Pressure (90/60-120/80) 116/73 Blood Pressure Mean (mm Hg) 87 Source Monitor History Since Last Visit- (Skip if this is Patient's initial visit) Have you changed medications since your No last visit? Any new allergies or adverse reactions No Had a fall/change in ADL's that may No increase risk of falls Signs or symptoms of abuse and/or No neglect since last visit Have you been in the hospital since your No last visit? Has dressing in place as prescribed No Has compression in place as prescribed N/A Has offloadiing in place as prescribed N/A Experienced any changes in pain level or No management Left Footwear Regular Shoe Right Footwear Regular Shoe Pain Scale: 0-10 Numeric Is Patient Pain Free? No WC - Nurse 1 - General Ulcer Measurement Start: 08/05/22 10:45 Freq: Status: Active Protocol: Activity Type Activity Date Activity User E-sign Co-sign Detail Recorded Client Recorded Date Recorded By Document 08/05/22 10:46 ESTEE [id number] 08/05/22 10:48 ESTEE 08/05/22 10:46 Wound Center Nurse 1 #11- Left MED POST THIGH -Current Size (cm) - Length 2 -Current Size (cm) - Width 1.5 -Current Size (cm) - Depth 0.1 -Total Square Cm 3.0 -Photo Taken No -Tunneling No -Undermining/Tunneling No -Circular Undermining No -Change in Wound Grade/Stage No -Exudate Amt Medium -Exudate Type Serosanguineous -Wound Margin Distinct, Outline Attached -Granulation Amt Large (67-100%) -Granulation Quality Red -Slough/Fibrin No -Necrosis Amt None Present (0 %) -Structure Exposed N/A -Texture (Adriane-wound Skin Appearance) No Abnormality, Assessed -Moisture (Adriane-wound Skin Appearance) No Abnormality, Assessed -Color (Adriane-wound Skin Appearance) No Abnormality, Assessed -Temperature (Adriane-wound Skin No Abnormality Appearance) (Pt Warm) -Tenderness on Palpation (Adriane-wound No Skin Appearance) -Ulcer Cleansing Rinsed/ Irrigated with Saline -Foul Odor after Cleansing No -Anesthetic Used 5% Lidocaine Gel #10- L BUTTOCK -Combined with other wound No -Current Size (cm) - Length 1.5 -Current Size (cm) - Width 2.6 -Current Size (cm) - Depth 0.1 -Total Square Cm 3.90 -Photo Taken No -Tunneling No -Undermining/Tunneling No -Circular Undermining No -Change in Wound Grade/Stage No -Exudate Amt Medium -Exudate Type Serosanguineous -Wound Margin Distinct, Outline Attached -Granulation Amt Large (67-100%) -Granulation Quality Red -Slough/Fibrin No -Necrosis Amt None Present (0 %) -Structure Exposed N/A -Texture (Adriane-wound Skin Appearance) No Abnormality, Assessed -Moisture (Adriane-wound Skin Appearance) No Abnormality, Assessed -Color (Adriane-wound Skin Appearance) No Abnormality, Assessed -Temperature (Adriane-wound Skin No Abnormality Appearance) (Pt Warm) -Tenderness on Palpation (Adriane-wound No Skin Appearance) -Ulcer Cleansing Rinsed/ Irrigated with Saline -Foul Odor after Cleansing No -Anesthetic Used 5% Lidocaine Gel WC - Nurse 2 - General Ulcer CM Notes Start: 08/05/22 10:45 Freq: Status: Active Protocol: Activity Type Activity Date Activity User E-sign Co-sign Detail Recorded Client Recorded Date Recorded By Document 08/05/22 11:38 MW [id number] 08/05/22 11:50 MW 08/05/22 11:38 Wound Center Nurse 2 #11- Left MED POST THIGH -Time 11:39 -Correct Patient Yes -Correct Side, Site, Position Yes -Correct Procedure Yes -Procedure Performed Yes -Type of Procedure Debridement -Clinical Debridement Subcutaneous -Tissue Removed Subcutaneous -Post Debridement (cm) - Length 1.8 -Post Debridement (cm) - Width 2.1 -Post Debridement (cm) - Depth 0.1 -Total Square (Post) (cm) 3.78 -Area of Debridement (cm) - Length 1.8 -Area of Debridement (cm) - Width 2.1 -Total Square (Area) (cm) 3.78 -Tunneling No -Undermining/Tunneling No -Circular Undermining No -Wound/Ulcer Outcome Not Healed -Ulcer Cleansing Rinsed/ Irrigated with Saline -Foul Odor after Cleansing No -Bioengineered Tissue No -Bleeding Controlled with Pressure -Offloading No -Debridement - Subq, 1st 20sq cm Yes #10- L BUTTOCK -Time 11:39 -Correct Patient Yes -Correct Side, Site, Position Yes -Correct Procedure Yes -Procedure Performed Yes -Type of Procedure Debridement -Clinical Debridement Subcutaneous -Tissue Removed Subcutaneous -Post Debridement (cm) - Length 2.8 -Post Debridement (cm) - Width 1.5 -Post Debridement (cm) - Depth 0.1 -Total Square (Post) (cm) 4.20 -Area of Debridement (cm) - Length 2.8 -Area of Debridement (cm) - Width 1.5 -Total Square (Area) (cm) 4.20 -Tunneling No -Undermining/Tunneling No -Circular Undermining No -Wound/Ulcer Outcome Not Healed -Ulcer Cleansing Rinsed/ Irrigated with Saline -Foul Odor after Cleansing No -Bioengineered Tissue No -Bleeding Controlled with Pressure -Treatment Response Procedure Tolerated Well -Offloading No -Debridement - Subq, 1st 20sq cm No Pain Scale: 0-10 Numeric Is Patient Pain Free? Yes Additional Wound Wound debrided: left buttock Laterality: Left Wound Grade/Stage: Stage 3 Type of Debridement: Excisional debridement Anesthesia Used: 4% Lidocaine Solution, 5% Lidocaine Gel and Cetacaine Depth: Down to and including healthy tissue and in the subcutaneous layer Percentage of wound debrided: 100 Instrument Used: 7mm curette Tissue Removed: Yellow slough, devitalized tissue Severity: Fat Layer Exposed Amount of bleeding with debridement: Mild Bleeding Controlled with: Compression and gauze Patient tolerated procedure: Patient tolerated procedure well Assessment/Plan Assessment/Plan (1) Morbid obesity due to excess calories: CODE(S): E66.01 - Morbid (severe) obesity due to excess calories (2) Type 2 diabetes mellitus: CODE(S): E11.9 - Type 2 diabetes mellitus without complications QUALIFIERS: Diabetes mellitus complication status: with neurologic complications Diabetes mellitus complication detail: with polyneuropathy Diabetes mellitus residential insulin use: with intermediate manager use Qualified Code(s): E11.42 - Type 2 diabetes mellitus with diabetic polyneuropathy; Z79.4 - [facility] (current) use of insulin (3) Type 2 diabetes mellitus with diabetic polyneuropathy: CODE(S): E11.42 - Type 2 diabetes mellitus with diabetic polyneuropathy QUALIFIERS: Diabetes mellitus residential insulin use: with intermediate manager use Qualified Code(s): E11.42 - Type 2 diabetes mellitus with diabetic polyneuropathy; Z79.4 - intermediate project manager (current) use of insulin (4) COPD (chronic obstructive pulmonary disease): CODE(S): J44.9 - Chronic obstructive pulmonary disease, unspecified (5) Decubitus ulcer of left buttock, stage 3: CODE(S): L89.323 - Pressure ulcer of left buttock, stage 3 (6) Decubitus ulcer of left thigh, stage 3: CODE(S): L89.223 - Pressure ulcer of left hip, stage 3 (7) Chronic ulcer of left thigh with fat layer exposed: CODE(S): L97.122 - Non-pressure chronic ulcer of left thigh with fat layer exposed PLAN: Plan Debridement performed today in clinic as annotated above. At home wound-care instructions: Will dress ulcers with Kayy and cover with silicone foam bordered dressing or ABD changed daily. Keep dressing clean and dry. Will also have Snider catheter placed by Home Health to help keep area dry and clean. Off-loading: The patient was instructed to avoid pressure and friction on the affected areas. Reposition every 2 hours at minimum. Avoid prolonged standing and/or dangling of legs. When seated, feet should be elevated at chest level. Frequent ambulation is encouraged. Diet: Patient encouraged to increase protein intake while taking caution to avoid high carbohydrate and/or sugar intake. Labs/cultures/imaging: Wound culture taken today and will call with results and anticipate need for treatment with antibiotic. Follow-up: Return for wound care follow up in 1 week. Return sooner or report to the emergency room should symptoms worsen, or new symptoms arise. Note: [employer] speech recognition elementary school teacher's aide software was used to create portions of this document. Sound-alike and misspelled words, as well as other elementary school teacher's aide errors may be contained in the documentation.
[2022-08-12 10:19] VITALS: BP 172/67; PULSE 95; RESP 18; TEMP 36.1; BMI 38.0
--- NOTE | 2022-08-12 13:29 | PN.PCM_ITS ---
History of Present Illness Date of Service: 08/12/22 Chief Complaint: nonhealing ulcers of left medial thigh, perineum History of Wound: Crystal is a 56-year-old patient with history of diabetic neuropathy, bipolar, schizoaffective disorder, depression, hypertension, cardiac disease, obesity, excessive tobacco use that presents to the wound center today for treatment and evaluation of ulcers of her left medial thigh and perineum that have been present for approx. 3 months. Patient has known problems healing and has been seen at the wound center for previous non-healing wounds of her lower extremities. She continues to smoke and is smoking approximately 2 packs/day. She does not know the cause of the ulcers of her left thigh and perineum but thinks it may have been from an abrasion from sliding to get out of a chair. She has tried treatment with Nystatin powder, Nystatin cream and Calmoseptine but they have not improved. Dr. Taylor performed a punch biopsy on 06/24/22 and this did not show any sign of malignancy and showed changes associated with a chronic wound and no evidence of fungal infection. She has been unable to keep this area covered due to dressings not staying in place. She does have DM and this is controlled, most recent A1C was 6.8% on 11/26/21. 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 This recurred after treatment with antiviral a few weeks prior. The area is very painful per patient and the ulcer of the perineum drains moderate to heavy and the thigh drains light to moderate. She is incontinent of urine. She denies fever, chills, increased erythema, odor. Subjective Subjective Crystal returns today for evaluation and treatment of ulcers of her left groin area. She has been having a hard time with the dressings. They are not staying in place. She also is incontinent of urine. She finished Augmentin. Denies fever or chills. Pain is severe. Catheter was received yesterday but has not been placed by yet. Objective Data Objective Data Vital Signs: Vital Signs Temp Pulse Resp BP 96.9 F L 95 18 172/67 H 08/12/22 10:19 08/12/22 10:19 08/12/22 10:19 08/12/22 10:19 Weight: 97.522 kg Body Mass Index (BMI) 38.0 Physical Exam Const alert, oriented x3 and no apparent distress General Appearance: cooperative and comfortable HEENT normocephalic and head/scalp atraumatic Resp normal respiratory effort Effort and Inspection: able to speak in complete sentences Cardio regular rate and regular rhythm Skin Skin Narrative: right groin with vesicular rash Wounds: wounds noted Wound Narrative: as in clinical panel Psych mental status grossly normal, thought process normal, cooperative and affect normal Debridement Note Debridement Note Wound debrided: Left medial posterior thigh Laterality: Left Wound Grade/Stage: Stage 3 Type of Debridement: Excisional debridement Anesthesia Used: 4% Lidocaine Solution, 5% Lidocaine Gel and Cetacaine Depth: Down to and including healthy tissue and in the subcutaneous layer Percentage of wound debrided: 100 Instrument Used: 7mm curette Tissue Removed: Yellow slough, devitalized tissue Severity: Fat Layer Exposed Amount of bleeding with debridement: Mild Bleeding Controlled with: Compression and gauze Patient tolerated procedure: Patient tolerated procedure well Post-Debridement Measurements and Additional Note: Post-Debridement Measurements/Treatment - Nurse 1 - General Ulcer Assessment Start: 08/05/22 10:45 Freq: Status: Active Protocol: LISY Activity Type Activity Date Activity User E-sign Co-sign Detail Recorded Client Recorded Date Recorded By Document 08/05/22 10:46 RI [id number] 08/05/22 10:48 AK Document 08/12/22 10:19 DL [id number] 08/12/22 10:28 DL 08/05/22 08/12/22 10:46 10:19 - Today's Visit Information Type of service Follow-up Visit Follow-up Visit (Physician/MOVIE PROJECTIONIST (Physician/MOVIE PROJECTIONIST ) ) Arrival Mode Ambulatory Ambulatory, Walker Transfer Assistance None Patient Identification Verified (Name & Yes Yes ) Patient Requires Transmission-Based No No Precautions Height and Weight Body Mass Index (BMI) 38.0 38.0 BMI Classification Obese Obese Vital Signs Temperature (97.8 F-99.1 F) 97.7 F L 96.9 F L Temperature Source Temporal Temporal Pulse Rate (60-100) 91 95 Pulse Location Monitor Monitor Respiratory Rate (12-18) 18 Respiratory rate source Observation Blood Pressure (90/60-120/80) 116/73 172/67 H Blood Pressure Mean (mm Hg) 87 102 Source Monitor Monitor Position Sitting Blood Pressure Location Right Arm History Since Last Visit- (Skip if this is Patient's initial visit) Have you changed medications since your No No last visit? Any new allergies or adverse reactions No No Had a fall/change in ADL's that may No No increase risk of falls Signs or symptoms of abuse and/or No No neglect since last visit Have you been in the hospital since your No No last visit? Has dressing in place as prescribed No Yes Has compression in place as prescribed N/A No Has offloadiing in place as prescribed N/A No Experienced any changes in pain level or No No management Left Footwear Regular Shoe Right Footwear Regular Shoe Pain Scale: 0-10 Numeric Is Patient Pain Free? No Yes WC - Nurse 1 - General Ulcer Measurement Start: 08/05/22 10:45 Freq: Status: Active Protocol: Activity Type Activity Date Activity User E-sign Co-sign Detail Recorded Client Recorded Date Recorded By Document 08/05/22 10:46 AK [id number] 08/05/22 10:48 AK Document 08/12/22 10:19 DL [id number] 08/12/22 10:28 DL 08/05/22 08/12/22 10:46 10:19 Wound Center Nurse 1 #11- Left MED POST THIGH -Combined with other wound No -Current Size (cm) - Length 2 1.5 -Current Size (cm) - Width 1.5 1.4 -Current Size (cm) - Depth 0.1 0.2 -Total Square Cm 3.0 2.10 -Photo Taken No -Tunneling No No -Undermining/Tunneling No No -Circular Undermining No No -Change in Wound Grade/Stage No -Exudate Amt Medium Medium -Exudate Type Serosanguineous Serosanguineous -Wound Margin Distinct, Distinct, Outline Outline Attached Attached -Granulation Amt Large (67-100%) Medium (34-66%) -Granulation Quality [place] -Slough/Fibrin No Yes -Necrosis Amt None Present (0 Small (1-33%) %) -Necrotic Tissue Type Adherent Slough -Structure Exposed N/A N/A -Texture (Adriane-wound Skin Appearance) No Abnormality, Assessed Assessed -Moisture (Adriane-wound Skin Appearance) No Abnormality, Assessed Assessed -Color (Adriane-wound Skin Appearance) No Abnormality, Assessed Assessed -Temperature (Adriane-wound Skin No Abnormality No Abnormality Appearance) (Pt Warm) (Pt Warm) -Tenderness on Palpation (Adriane-wound No No Skin Appearance) -Ulcer Cleansing Rinsed/ Wound Cleanser Irrigated with Saline -Foul Odor after Cleansing No No -Anesthetic Used 5% Lidocaine 5% Lidocaine Gel Gel #10- L BUTTOCK -Combined with other wound No No -Current Size (cm) - Length 1.5 2.5 -Current Size (cm) - Width 2.6 1 -Current Size (cm) - Depth 0.1 0.1 -Total Square Cm 3.90 2.5 -Photo Taken No -Tunneling No No -Undermining/Tunneling No No -Circular Undermining No No -Change in Wound Grade/Stage No -Exudate Amt Medium Medium -Exudate Type Serosanguineous Serosanguineous -Wound Margin Distinct, Distinct, Outline Outline Attached Attached -Granulation Amt Large (67-100%) Medium (34-66%) -Granulation Quality [place] -Slough/Fibrin No Yes -Necrosis Amt None Present (0 Medium (34-66%) %) -Necrotic Tissue Type Adherent Slough -Structure Exposed N/A None/Limited to Skin Breakdown -Texture (Adriane-wound Skin Appearance) No Abnormality, Assessed Assessed -Moisture (Adriane-wound Skin Appearance) No Abnormality, Assessed Assessed -Color (Adriane-wound Skin Appearance) No Abnormality, Assessed Assessed -Temperature (Adriane-wound Skin No Abnormality No Abnormality Appearance) (Pt Warm) (Pt Warm) -Tenderness on Palpation (Adriane-wound No No Skin Appearance) -Ulcer Cleansing Rinsed/ Wound Cleanser Irrigated with Saline -Foul Odor after Cleansing No No -Anesthetic Used 5% Lidocaine 5% Lidocaine Gel Gel WC - Nurse 2 - General Ulcer CM Notes Start: 08/05/22 10:45 Freq: Status: Active Protocol: Activity Type Activity Date Activity User E-sign Co-sign Detail Recorded Client Recorded Date Recorded By Document 08/05/22 11:38 MW [id number] 08/05/22 11:50 MW Document 08/12/22 10:55 MW [id number] 08/12/22 11:03 MW 08/05/22 08/12/22 11:38 10:55 Wound Center Nurse 2 #11- Left MED POST THIGH -Time 11:39 11:00 -Correct Patient Yes Yes -Correct Side, Site, Position Yes Yes -Correct Procedure Yes Yes -Procedure Performed Yes Yes -Type of Procedure Debridement Debridement -Clinical Debridement Subcutaneous Subcutaneous -Tissue Removed Subcutaneous Subcutaneous -Post Debridement (cm) - Length 1.8 1.2 -Post Debridement (cm) - Width 2.1 1.7 -Post Debridement (cm) - Depth 0.1 0.1 -Total Square (Post) (cm) 3.78 2.04 -Area of Debridement (cm) - Length 1.8 1.2 -Area of Debridement (cm) - Width 2.1 1.7 -Total Square (Area) (cm) 3.78 2.04 -Tunneling No No -Undermining/Tunneling No No -Circular Undermining No No -Wound/Ulcer Outcome Not Healed Not Healed -Ulcer Cleansing Rinsed/ Rinsed/ Irrigated with Irrigated with Saline Saline -Foul Odor after Cleansing No No -Bioengineered Tissue No No -Bleeding Controlled with Pressure Pressure -Treatment Response Procedure Tolerated Well -Offloading No No -Debridement - Subq, 1st 20sq cm Yes Yes #10- L BUTTOCK -Time 11:39 11:00 -Correct Patient Yes Yes -Correct Side, Site, Position Yes Yes -Correct Procedure Yes Yes -Procedure Performed Yes Yes -Type of Procedure Debridement Debridement -Clinical Debridement Subcutaneous Subcutaneous -Tissue Removed Subcutaneous Subcutaneous -Post Debridement (cm) - Length 2.8 2.4 -Post Debridement (cm) - Width 1.5 1.0 -Post Debridement (cm) - Depth 0.1 0.1 -Total Square (Post) (cm) 4.20 2.40 -Area of Debridement (cm) - Length 2.8 2.4 -Area of Debridement (cm) - Width 1.5 1.0 -Total Square (Area) (cm) 4.20 2.40 -Tunneling No No -Undermining/Tunneling No No -Circular Undermining No No -Wound/Ulcer Outcome Not Healed Not Healed -Ulcer Cleansing Rinsed/ Rinsed/ Irrigated with Irrigated with Saline Saline -Foul Odor after Cleansing No No -Bioengineered Tissue No No -Bleeding Controlled with Pressure Pressure -Treatment Response Procedure Procedure Tolerated Well Tolerated Well -Offloading No No -Debridement - Subq, 1st 20sq cm No No Pain Scale: 0-10 Numeric Is Patient Pain Free? Yes Yes WC - Nurse 3 - General Ulcer D/C NN Start: 08/05/22 10:45 Freq: Status: Active Protocol: Activity Type Activity Date Activity User E-sign Co-sign Detail Recorded Client Recorded Date Recorded By Document 08/12/22 11:18 RB [id number] 08/12/22 11:19 RB 08/12/22 11:18 Wound Care Center Nurse 3 #11- Left MED POST THIGH -Ulcer Cleansing Rinsed/ Irrigated with Saline -Primary Dressing Applied C Hydrogel ($) -Primary Dressing Covered/Secured with Dry Gauze, Secured with Tape #10- L BUTTOCK -Ulcer Cleansing Rinsed/ Irrigated with Saline -Primary Dressing Applied Promogran Kayy Matter -Primary Dressing Covered/Secured with Dry Gauze, Secured with Tape -Promogran Kayy Matter 1 Treatment Response Procedure Tolerated Well Pain Scale: 0-10 Numeric Is Patient Pain Free? Yes WC - Visit Discharge Discharge Condition Stable Ambulatory Status Ambulatory, Walker Transportation Private Auto Medication Reconcilliation completed & No provided to patient/care provider Clinical Summary of Care Provided Yes Additional Wound Wound debrided: left buttock Laterality: Left Wound Grade/Stage: Stage 3 Type of Debridement: Excisional debridement Anesthesia Used: 4% Lidocaine Solution, 5% Lidocaine Gel and Cetacaine Depth: Down to and including healthy tissue and in the subcutaneous layer Percentage of wound debrided: 100 Instrument Used: 7mm curette Tissue Removed: Yellow slough, devitalized tissue Severity: Fat Layer Exposed Amount of bleeding with debridement: Mild Bleeding Controlled with: Compression and gauze Patient tolerated procedure: Patient tolerated procedure well Assessment/Plan Assessment/Plan (1) Morbid obesity due to excess calories: CODE(S): E66.01 - Morbid (severe) obesity due to excess calories (2) Type 2 diabetes mellitus: CODE(S): E11.9 - Type 2 diabetes mellitus without complications QUALIFIERS: Diabetes mellitus complication status: with neurologic complications Diabetes mellitus complication detail: with polyneuropathy Diabetes mellitus half-way insulin use: with truck terminal 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 use Qualified Code(s): E11.42 - Type 2 diabetes mellitus with diabetic polyneuropathy; Z79.4 - MCC (current) use of insulin (3) Type 2 diabetes mellitus with diabetic polyneuropathy: CODE(S): E11.42 - Type 2 diabetes mellitus with diabetic polyneuropathy QUALIFIERS: Diabetes mellitus half-way insulin use: with half-way use Qualified Code(s): E11.42 - Type 2 diabetes mellitus with diabetic polyneuropathy; Z79.4 - MCC (current) use of insulin (4) COPD (chronic obstructive pulmonary disease): CODE(S): J44.9 - Chronic obstructive pulmonary disease, unspecified (5) Decubitus ulcer of left buttock, stage 3: CODE(S): L89.323 - Pressure ulcer of left buttock, stage 3 (6) Decubitus ulcer of left thigh, stage 3: CODE(S): L89.223 - Pressure ulcer of left hip, stage 3 (7) Chronic ulcer of left thigh with fat layer exposed: CODE(S): L97.122 - Non-pressure chronic ulcer of left thigh with fat layer exposed PLAN: Plan Debridement performed today in clinic as annotated above. At home wound-care instructions: Will dress left buttock ulcer with Kayy and left thigh ulcer with collagen hydrogel and cover both with silicone foam bordered dressing or ABD changed daily. Keep dressing clean and dry. Will also have Snider catheter placed by Home Health to help keep area dry and clean. Off-loading: The patient was instructed to avoid pressure and friction on the affected areas. Reposition every 2 hours at minimum. Avoid prolonged standing and/or dangling of legs. When seated, feet should be elevated at chest level. Frequent ambulation is encouraged. Diet: Patient encouraged to increase protein intake while taking caution to avoid high carbohydrate and/or sugar intake. Labs/cultures/imaging: Follow-up: Return for wound care follow up in 1 week. Return sooner or report to the emergency room should symptoms worsen, or new symptoms arise. Note: [employer] speech recognition glass science engineer software was used to create portions of this document. Sound-alike and misspelled words, as well as other glass science engineer errors may be contained in the documentation.
[2022-08-26 09:49] VITALS: BP 155/50; PULSE 64; RESP 18; TEMP 36.1; O2SAT 97; BMI 38.0
--- NOTE | 2022-08-26 09:50 | WC ---
02 3L only with excertion
--- NOTE | 2022-08-26 15:30 | PN.PCM_ITS ---
History of Present Illness Date of Service: 08/26/22 Chief Complaint: nonhealing ulcers of left medial thigh, perineum History of Wound: Crystal is a 56-year-old patient with history of diabetic neuropathy, bipolar, schizoaffective disorder, depression, hypertension, cardiac disease, obesity, excessive tobacco use that presents to the wound center today for treatment and evaluation of ulcers of her left medial thigh and perineum that have been present for approx. 3 months. Patient has known problems healing and has been seen at the wound center for previous non-healing wounds of her lower extremities. She continues to smoke and is smoking approximately 2 packs/day. She does not know the cause of the ulcers of her left thigh and perineum but thinks it may have been from an abrasion from sliding to get out of a chair. She has tried treatment with Nystatin powder, Nystatin cream and Calmoseptine but they have not improved. Dr. Taylor performed a punch biopsy on 06/24/22 and this did not show any sign of malignancy and showed changes associated with a chronic wound and no evidence of fungal infection. She has been unable to keep this area covered due to dressings not staying in place. She does have DM and this is controlled, most recent A1C was 6.8% on 11/26/21. 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 This recurred after treatment with antiviral a few weeks prior. The area is very painful per patient and the ulcer of the perineum drains moderate to heavy and the thigh drains light to moderate. She is incontinent of urine. She denies fever, chills, increased erythema, odor. Subjective Subjective Crystal returns today for evaluation and treatment of ulcers of her left groin area. She has been having a hard time with the dressings. They are not staying in place. She has a catheter and is tolerating this well. She finished Augmentin. Denies fever or chills. Pain is severe. She also has 2 new areas on her right labia that look like herpes ulcers. She started back on Acyclovir on . Objective Data Objective Data Vital Signs: Vital Signs Temp Pulse Resp BP Pulse Ox 97 F L 64 18 155/50 H 97 08/26/22 09:49 08/26/22 09:49 08/26/22 09:49 08/26/22 09:49 08/26/22 09:49 Weight: 97.522 kg Body Mass Index (BMI) 38.0 Physical Exam Const alert, oriented x3 and no apparent distress General Appearance: cooperative and comfortable HEENT normocephalic and head/scalp atraumatic Resp normal respiratory effort Effort and Inspection: able to speak in complete sentences Cardio regular rate and regular rhythm Skin Skin Narrative: right groin with vesicular rash Wounds: wounds noted Wound Narrative: as in clinical panel Psych mental status grossly normal, thought process normal, cooperative and affect normal Debridement Note Debridement Note Wound debrided: Left medial posterior thigh Laterality: Left Wound Grade/Stage: Stage 3 Type of Debridement: Excisional debridement Anesthesia Used: 4% Lidocaine Solution, 5% Lidocaine Gel and Cetacaine Depth: Down to and including healthy tissue and in the subcutaneous layer Percentage of wound debrided: 100 Instrument Used: 7mm curette Tissue Removed: Yellow slough, devitalized tissue Severity: Fat Layer Exposed Amount of bleeding with debridement: Mild Bleeding Controlled with: Compression and gauze Patient tolerated procedure: Patient tolerated procedure well Post-Debridement Measurements and Additional Note: Post-Debridement Measurements/Treatment - Nurse 1 - General Ulcer Assessment Start: 08/05/22 10:45 Freq: Status: Active Protocol: LISY Activity Type Activity Date Activity User E-sign Co-sign Detail Recorded Client Recorded Date Recorded By Document 08/05/22 10:46 AK [id number] 08/05/22 10:48 AK Document 08/12/22 10:19 DL [id number] 08/12/22 10:28 DL Document 08/26/22 09:49 RB [id number] 08/26/22 10:09 RB 08/05/22 08/12/22 08/26/22 10:46 10:19 09:49 - Today's Visit Information Type of service Follow-up Visit Follow-up Visit Follow-up Visit (Physician/[employer] (Physician/[employer] (Physician/[employer] ) ) ) Arrival Mode Ambulatory Ambulatory, Ambulatory, Walker Walker Transfer Assistance None None Patient Identification Verified (Name & Yes Yes Yes ) Patient Requires Transmission-Based No No No Precautions Height and Weight Body Mass Index (BMI) 38.0 38.0 38.0 BMI Classification Obese Obese Obese Vital Signs Temperature (97.8 F-99.1 F) 97.7 F L 96.9 F L 97 F L Temperature Source Temporal Temporal Temporal Pulse Rate (60-100) 91 95 64 Pulse Location Monitor Monitor Monitor Respiratory Rate (12-18) 18 18 Respiratory rate source Observation Observation Pulse Oximetry 97 Blood Pressure (90/60-120/80) 116/73 172/67 H 155/50 H Blood Pressure Mean (mm Hg) 87 102 85 Source Monitor Monitor Monitor Position Sitting Sitting Blood Pressure Location Right Arm Right Arm History Since Last Visit- (Skip if this is Patient's initial visit) Have you changed medications since your No No Yes last visit? Any new allergies or adverse reactions No No No Had a fall/change in ADL's that may No No No increase risk of falls Signs or symptoms of abuse and/or No No No neglect since last visit Have you been in the hospital since your No No Yes last visit? Has dressing in place as prescribed No Yes Yes Has compression in place as prescribed N/A No No Has offloadiing in place as prescribed N/A No No Experienced any changes in pain level or No No No management Left Footwear Regular Shoe Right Footwear Regular Shoe Pain Scale: 0-10 Numeric Is Patient Pain Free? No Yes No adriane area -Description Sharp -Intensity 7 -Duration (hours) Acute -Pain Behavior Withdrawal from Touch -Pain Aggravating Factors Exercise/ Activity -Alleviating Factors/Interventions Medication -Effectiveness of Alleviating Factor/ Minimally Intervention effective 08/26/22 09:50 Wound Center by Kenyetta Clarke 02 3L only with excertion Initialized on 08/26/22 09:50 - END OF NOTE WC - Nurse 1 - General Ulcer Measurement Start: 08/05/22 10:45 Freq: Status: Active Protocol: Activity Type Activity Date Activity User E-sign Co-sign Detail Recorded Client Recorded Date Recorded By Document 08/05/22 10:46 AK [id number] 08/05/22 10:48 AK Document 08/12/22 10:19 DL [id number] 08/12/22 10:28 DL Document 08/26/22 09:49 RB [id number] 08/26/22 10:09 RB 08/05/22 08/12/22 08/26/22 10:46 10:19 09:49 Wound Center Nurse 1 13. R buttock -Combined with other wound No -Current Size (cm) - Length 0.4 -Current Size (cm) - Width 0.5 -Current Size (cm) - Depth 0.1 -Total Square Cm 0.20 -Photo Taken Yes -Tunneling No -Undermining/Tunneling No -Circular Undermining No -Exudate Amt Medium -Exudate Type Serosanguineous -Wound Margin Distinct, Outline Attached -Granulation Amt Medium (34-66%) -Granulation Quality [place] Arthur -Slough/Fibrin Yes -Necrosis Amt Medium (34-66%) -Necrotic Tissue Type Adherent Slough -Structure Exposed N/A -Texture (Adriane-wound Skin Appearance) Assessed -Moisture (Adriane-wound Skin Appearance) Assessed -Color (Adriane-wound Skin Appearance) Assessed -Temperature (Adriane-wound Skin No Abnormality Appearance) (Pt Warm) -Tenderness on Palpation (Adriane-wound No Skin Appearance) -Ulcer Cleansing Wound Cleanser -Foul Odor after Cleansing No -Anesthetic Used 5% Lidocaine Gel 12. R labia -Combined with other wound No -Current Size (cm) - Length 0.4 -Current Size (cm) - Width 0.6 -Current Size (cm) - Depth 0.1 -Total Square Cm 0.24 -Photo Taken Yes -Tunneling No -Undermining/Tunneling No -Circular Undermining No -Exudate Amt Medium -Exudate Type Serosanguineous -Wound Margin Distinct, Outline Attached -Granulation Amt Medium (34-66%) -Granulation Quality [place] -Slough/Fibrin Yes -Necrosis Amt Medium (34-66%) -Necrotic Tissue Type Adherent Slough -Structure Exposed N/A -Texture (Adriane-wound Skin Appearance) Assessed -Moisture (Adriane-wound Skin Appearance) Assessed -Color (Adriane-wound Skin Appearance) Assessed -Temperature (Adriane-wound Skin No Abnormality Appearance) (Pt Warm) -Tenderness on Palpation (Adriane-wound No Skin Appearance) -Ulcer Cleansing Wound Cleanser -Foul Odor after Cleansing No -Anesthetic Used 5% Lidocaine Gel #11- Left MED POST THIGH -Combined with other wound No No -Current Size (cm) - Length 2 1.5 2.2 -Current Size (cm) - Width 1.5 1.4 1.4 -Current Size (cm) - Depth 0.1 0.2 0.3 -Total Square Cm 3.0 2.10 3.08 -Photo Taken No -Tunneling No No No -Undermining/Tunneling No No No -Circular Undermining No No No -Change in Wound Grade/Stage No -Exudate Amt Medium Medium Medium -Exudate Type Serosanguineous Serosanguineous Serosanguineous -Wound Margin Distinct, Distinct, Thickened & Outline Outline Rolled Under Attached Attached -Granulation Amt Large (67-100%) Medium (34-66%) Medium (34-66%) -Granulation Quality Red Bell Arthur Bell Arthur -Slough/Fibrin No Yes Yes -Necrosis Amt None Present (0 Small (1-33%) Medium (34-66%) %) -Necrotic Tissue Type Adherent Slough Adherent Slough -Structure Exposed N/A N/A N/A -Texture (Adriane-wound Skin Appearance) No Abnormality, Assessed Assessed Assessed -Moisture (Adriane-wound Skin Appearance) No Abnormality, Assessed Assessed Assessed -Color (Adriane-wound Skin Appearance) No Abnormality, Assessed Assessed Assessed -Temperature (Adriane-wound Skin No Abnormality No Abnormality No Abnormality Appearance) (Pt Warm) (Pt Warm) (Pt Warm) -Tenderness on Palpation (Adriane-wound No No No Skin Appearance) -Ulcer Cleansing Rinsed/ Wound Cleanser Wound Cleanser Irrigated with Saline -Foul Odor after Cleansing No No No -Anesthetic Used 5% Lidocaine 5% Lidocaine 5% Lidocaine Gel Gel Gel #10- L BUTTOCK -Combined with other wound No No No -Current Size (cm) - Length 1.5 2.5 2.4 -Current Size (cm) - Width 2.6 1 1.3 -Current Size (cm) - Depth 0.1 0.1 0.2 -Total Square Cm 3.90 2.5 3.12 -Photo Taken No -Tunneling No No No -Undermining/Tunneling No No No -Circular Undermining No No No -Change in Wound Grade/Stage No -Exudate Amt Medium Medium Medium -Exudate Type Serosanguineous Serosanguineous Serosanguineous -Wound Margin Distinct, Distinct, Thickened & Outline Outline Rolled Under Attached Attached -Granulation Amt Large (67-100%) Medium (34-66%) Medium (34-66%) -Granulation Quality Red Bell Arthur Bell Arthur -Slough/Fibrin No Yes Yes -Necrosis Amt None Present (0 Medium (34-66%) Medium (34-66%) %) -Necrotic Tissue Type Adherent Slough Adherent Slough -Structure Exposed N/A None/Limited to N/A Skin Breakdown -Texture (Adriane-wound Skin Appearance) No Abnormality, Assessed Assessed Assessed -Moisture (Adriane-wound Skin Appearance) No Abnormality, Assessed Assessed Assessed -Color (Adriane-wound Skin Appearance) No Abnormality, Assessed Assessed Assessed -Temperature (Adriane-wound Skin No Abnormality No Abnormality No Abnormality Appearance) (Pt Warm) (Pt Warm) (Pt Warm) -Tenderness on Palpation (Adriane-wound No No No Skin Appearance) -Ulcer Cleansing Rinsed/ Wound Cleanser Wound Cleanser Irrigated with Saline -Foul Odor after Cleansing No No No -Anesthetic Used 5% Lidocaine 5% Lidocaine 5% Lidocaine Gel Gel Gel WC - Nurse 2 - General Ulcer CM Notes Start: 08/05/22 10:45 Freq: Status: Active Protocol: Activity Type Activity Date Activity User E-sign Co-sign Detail Recorded Client Recorded Date Recorded By Document 08/05/22 11:38 MW [id number] 08/05/22 11:50 MW Document 08/12/22 10:55 MW [id number] 08/12/22 11:03 MW Document 08/26/22 10:14 MW [id number] 08/26/22 10:25 MW 08/05/22 08/12/22 08/26/22 11:38 10:55 10:14 Wound Center Nurse 2 13. R buttock -Time 10:20 -Correct Patient Yes -Correct Side, Site, Position Yes -Correct Procedure Yes -Procedure Performed No -Wound/Ulcer Outcome Not Healed 12. R labia -Time 10:21 -Correct Patient Yes -Correct Side, Site, Position Yes -Correct Procedure Yes -Procedure Performed No #11- Left MED POST THIGH -Time 11:39 11:00 10:21 -Correct Patient Yes Yes Yes -Correct Side, Site, Position Yes Yes Yes -Correct Procedure Yes Yes Yes -Procedure Performed Yes Yes Yes -Type of Procedure Debridement Debridement Debridement -Clinical Debridement Subcutaneous Subcutaneous Subcutaneous -Tissue Removed Subcutaneous Subcutaneous Subcutaneous -Post Debridement (cm) - Length 1.8 1.2 1.3 -Post Debridement (cm) - Width 2.1 1.7 2.1 -Post Debridement (cm) - Depth 0.1 0.1 0.1 -Total Square (Post) (cm) 3.78 2.04 2.73 -Area of Debridement (cm) - Length 1.8 1.2 1.3 -Area of Debridement (cm) - Width 2.1 1.7 2.1 -Total Square (Area) (cm) 3.78 2.04 2.73 -Tunneling No No No -Undermining/Tunneling No No No -Circular Undermining No No No -Wound/Ulcer Outcome Not Healed Not Healed Not Healed -Ulcer Cleansing Rinsed/ Rinsed/ Rinsed/ Irrigated with Irrigated with Irrigated with Saline Saline Saline -Foul Odor after Cleansing No No No -Bioengineered Tissue No No No -Bleeding Controlled with Pressure Pressure Pressure -Treatment Response Procedure Procedure Tolerated Well Tolerated Well -Offloading No No No -Debridement - Subq, 1st 20sq cm Yes Yes Yes #10- L BUTTOCK -Time 11:39 11:00 10:21 -Correct Patient Yes Yes Yes -Correct Side, Site, Position Yes Yes Yes -Correct Procedure Yes Yes Yes -Procedure Performed Yes Yes Yes -Type of Procedure Debridement Debridement Debridement -Clinical Debridement Subcutaneous Subcutaneous Subcutaneous -Tissue Removed Subcutaneous Subcutaneous Subcutaneous -Post Debridement (cm) - Length 2.8 2.4 2.3 -Post Debridement (cm) - Width 1.5 1.0 1.1 -Post Debridement (cm) - Depth 0.1 0.1 0.1 -Total Square (Post) (cm) 4.20 2.40 2.53 -Area of Debridement (cm) - Length 2.8 2.4 2.3 -Area of Debridement (cm) - Width 1.5 1.0 1.1 -Total Square (Area) (cm) 4.20 2.40 2.53 -Tunneling No No No -Undermining/Tunneling No No No -Circular Undermining No No No -Wound/Ulcer Outcome Not Healed Not Healed Not Healed -Ulcer Cleansing Rinsed/ Rinsed/ Rinsed/ Irrigated with Irrigated with Irrigated with Saline Saline Saline -Foul Odor after Cleansing No No No -Bioengineered Tissue No No No -Bleeding Controlled with Pressure Pressure Pressure -Treatment Response Procedure Procedure Procedure Tolerated Well Tolerated Well Tolerated Well -Offloading No No No -Debridement - Subq, 1st 20sq cm No No No Pain Scale: 0-10 Numeric Is Patient Pain Free? Yes Yes Yes - Nurse 3 - General Ulcer D/C NN Start: 08/05/22 10:45 Freq: Status: Active Protocol: Activity Type Activity Date Activity User E-sign Co-sign Detail Recorded Client Recorded Date Recorded By Document 08/12/22 11:18 RB [id number] 08/12/22 11:19 RB Document 08/26/22 10:25 MW [id number] 08/26/22 10:26 MW 08/12/22 08/26/22 11:18 10:25 Wound Care Center Nurse 3 #11- Left MED POST THIGH -Ulcer Cleansing Rinsed/ Rinsed/ Irrigated with Irrigated with Saline Saline -Foul Odor after Cleansing No -Negative Pressure Wound Therapy N/A -Primary Dressing Applied C Hydrogel ($) Promogran Kelechi Matter -Primary Dressing Covered/Secured with Dry Gauze, Dry Gauze, Secured with Secured with Tape Tape -Promogran Kelechi Matter 1 #10- L BUTTOCK -Ulcer Cleansing Rinsed/ Rinsed/ Irrigated with Irrigated with Saline Saline -Foul Odor after Cleansing No -Negative Pressure Wound Therapy N/A -Primary Dressing Applied Promogran Kelechi Matter -Other Dressing kelechi -Primary Dressing Covered/Secured with Dry Gauze, Dry Gauze, Secured with Secured with Tape Tape -Promogran Kelechi Matter 1 Treatment Response Procedure Procedure Tolerated Well Tolerated Well Pain Scale: 0-10 Numeric Is Patient Pain Free? Yes Yes Teaching: Wound Center Dressing Your Wound -Person Taught Patient -Teaching Method Discussion -Response to teaching Verbalize understanding WC - Visit Discharge Discharge Condition Stable Stable Ambulatory Status Ambulatory, Ambulatory, Walker Walker Transportation Private Auto Private Auto Accompanied by self Medication Reconcilliation completed & No No provided to patient/care provider Clinical Summary of Care Provided Yes Yes Additional Wound Wound debrided: left buttock Laterality: Left Wound Grade/Stage: Stage 3 Type of Debridement: Excisional debridement Anesthesia Used: 4% Lidocaine Solution, 5% Lidocaine Gel and Cetacaine Depth: Down to and including healthy tissue and in the subcutaneous layer Percentage of wound debrided: 100 Instrument Used: 7mm curette Tissue Removed: Yellow slough, devitalized tissue Severity: Fat Layer Exposed Amount of bleeding with debridement: Mild Bleeding Controlled with: Compression and gauze Patient tolerated procedure: Patient tolerated procedure well Assessment/Plan Assessment/Plan (1) Morbid obesity due to excess calories: CODE(S): E66.01 - Morbid (severe) obesity due to excess calories (2) Type 2 diabetes mellitus: CODE(S): E11.9 - Type 2 diabetes mellitus without complications QUALIFIERS: Diabetes mellitus complication status: with neurologic complications Diabetes mellitus complication detail: with polyneuropathy Diabetes mellitus usp insulin use: with usp use Qualified Code(s): E11.42 - Type 2 diabetes mellitus with diabetic polyneuropathy; Z79.4 - skilled nursing (current) use of insulin (3) Type 2 diabetes mellitus with diabetic polyneuropathy: CODE(S): E11.42 - Type 2 diabetes mellitus with diabetic polyneuropathy QUALIFIERS: Diabetes mellitus terminal clerk insulin use: with terminal clerk use Qualified Code(s): E11.42 - Type 2 diabetes mellitus with diabetic polyneuropathy; Z79.4 - skilled nursing (current) use of insulin (4) COPD (chronic obstructive pulmonary disease): CODE(S): J44.9 - Chronic obstructive pulmonary disease, unspecified (5) Decubitus ulcer of left buttock, stage 3: CODE(S): L89.323 - Pressure ulcer of left buttock, stage 3 (6) Decubitus ulcer of left thigh, stage 3: CODE(S): L89.223 - Pressure ulcer of left hip, stage 3 (7) Chronic ulcer of left thigh with fat layer exposed: CODE(S): L97.122 - Non-pressure chronic ulcer of left thigh with fat layer exposed PLAN: Plan Debridement performed today in clinic as annotated above. At home wound-care instructions: Will dress left buttock ulcer with Kelechi and left thigh ulcer with collagen hydrogel and cover both with gauze and change daily. Keep dressing clean and dry. Will continue Snider catheter. Off-loading: The patient was instructed to avoid pressure and friction on the affected areas. Reposition every 2 hours at minimum. Avoid prolonged standing and/or dangling of legs. When seated, feet should be elevated at chest level. Frequent ambulation is encouraged. Diet: Patient encouraged to increase protein intake while taking caution to avoid high carbohydrate and/or sugar intake. Labs/cultures/imaging: Follow-up: Return for wound care follow up in 1 week. Return sooner or report to the emergency room should symptoms worsen, or new symptoms arise. Note: [employer] speech recognition comprehensive ophthalmologist software was used to create portions of this document. Sound-alike and misspelled words, as well as other comprehensive ophthalmologist errors may be contained in the documentation.
== END 2022-09-02 23:59 | disposition home or self-care (01) ==
LOC: WC 09:30
PROVIDERS: PCP Family Medicine; Referring Provider Family Medicine; Visit Provider Family Medicine
DX: L89.323 Pressure ulcer of left buttock, stage 3 (principal); L89.223 Pressure ulcer of left hip, stage 3; E11.622 Type 2 diabetes mellitus with other skin ulcer; L97.122 Non-pressure chronic ulcer of left thigh with fat layer exposed; E11.42 Type 2 diabetes mellitus with diabetic polyneuropathy; A60.04 Herpesviral vulvovaginitis; J44.9 Chronic obstructive pulmonary disease, unspecified; I10 Essential (primary) hypertension; E66.01 Morbid (severe) obesity due to excess calories; Z68.38 Body mass index [BMI] 38.0-38.9, adult; Z79.4 Long term (current) use of insulin; F17.200 Nicotine dependence, unspecified, uncomplicated; Z79.02 Long term (current) use of antithrombotics/antiplatelets; Z79.84 Long term (current) use of oral hypoglycemic drugs; Z79.899 Other long term (current) drug therapy
CPT/HCPCS: 11042

== ENCOUNTER → 2022-08-26 | Outpatient (CLI) | payer MEDICARE, SELFPAY ==
[2022-08-26 18:21] LABS: Anion Gap 9 (5-15); BUN 19 mg/dL (7-18); BUN/Creat Ratio 15.3 RATIO (10-20); Calcium,Total 9.8 mg/dL (8.5-10.1); Chloride 90 mmol/L (98-107); Creatinine, Serum 1.24 mg/dL (0.55-1.02); EST Glomerular Filtration Rate 47 mL/min (>60); Est Glom Filt Rate - Afr Amer 57 mL/min (>60); Glucose 590 mg/dL (74-106); Potassium 4.2 mmol/L (3.5-5.1); Sodium Level 127 mmol/L (136-145)
== END | disposition home or self-care (01) ==
LOC: BFHLAB 15:36
PROVIDERS: PCP Family Medicine; Visit Provider Family Medicine
DX: I11.0 Hypertensive heart disease with heart failure (principal); L89.323 Pressure ulcer of left buttock, stage 3; L89.223 Pressure ulcer of left hip, stage 3; E11.622 Type 2 diabetes mellitus with other skin ulcer; L97.122 Non-pressure chronic ulcer of left thigh with fat layer exposed; J44.9 Chronic obstructive pulmonary disease, unspecified; I50.9 Heart failure, unspecified; E11.42 Type 2 diabetes mellitus with diabetic polyneuropathy; E66.01 Morbid (severe) obesity due to excess calories; Z79.4 Long term (current) use of insulin; A60.04 Herpesviral vulvovaginitis; Z68.38 Body mass index [BMI] 38.0-38.9, adult; F17.200 Nicotine dependence, unspecified, uncomplicated
CPT/HCPCS: 11042; 36415; 80048

== ENCOUNTER 2022-08-31 13:52 | Emergency (ER) | payer MEDICARE, MEDICAID, SELFPAY ==
[2022-08-31 13:53] VITALS: BP 150/75; PULSE 114; RESP 18; TEMP 35.8; O2SAT 97
[2022-08-31] MEDS: Ondansetron ODT 4 MG Tablet 8 MG PO (14:49)
[2022-08-31 14:50] VITALS: BMI 35.8
--- NOTE | 2022-08-31 14:53 | EDS_ITS ---
HPI History of Present Illness Chief Complaint: Complaint Informant: patient Narrative Narrative: Patient states for the past 2 or 3 days, she has had cloudy urine in her Snider bag. She has felt a little nauseated. She denies any fevers or chills. She denies any abdominal pain. No hematuria or urinary retention. She states she has wounds that she has home health for, her nurse pointed out that her urine was cloudy, and now that it was pointed out to her she states that she thinks the urine was not clear and normal for maybe the past 2 or 3 days. She has an indwelling Snider in from what it sounds like based on the patient's description in order to divert urine flow around some chronic wounds. She has had it in for about 3 weeks. States she recently was diagnosed with pneumonia, she states that is better but she finished Levaquin about 4 days ago. [facility] Medical History Anemia Asthma Atherosclerotic heart disease of [place] coronary artery without angina pectoris Benign essential hypertension BiPAP (biphasic positive airway pressure) dependence Bleeding tendency Blood loss anemia CAD (coronary artery disease) Cardiac dysrhythmia Chest pain Chest pain at rest Chronic cough Chronic narcotic use Closed fracture of proximal end of fibula COPD (chronic obstructive pulmonary disease) Current use of insulin Delayed surgical wound healing Diabetes Dislocation of hip, right, closed Emphysema of lung Gastroesophageal reflux disease High cholesterol Hip osteoarthritis History of left heart catheterization (LHC) (~07/05/21) History of pulmonary embolism History of revision of total replacement of right hip joint History of stress test Hypertension Irregular heart beat Irritable bowel Morbid obesity Myocardial infarct On home oxygen therapy RACHEL (obstructive sleep apnea) Pancreatitis Peptic ulcer Preoperative cardiovascular examination Presence of stent in coronary artery (~02/07/11) Pulmonary hypertension Schizoaffective disorder Schizophrenia Sleep apnea Smoker Spinal stenosis of lumbar region at multiple levels Stage 2 moderate COPD by GOLD classification Suspected COVID-19 virus infection Takotsubo cardiomyopathy Thyroid nodule Tobacco abuse Ulcer Vitamin D deficiency Home Medications atorvastatin 80 mg tablet 80 mg PO QHS cholesterol 08/22/15 [History Last Taken 08/03/21] pregabalin 75 mg capsule 75 mg PO TID PAIN 03/08/18 [History Last Taken 08/03/21] risperidone 4 mg tablet 4 mg PO QHS sleep 03/08/18 [History Last Taken 08/04/21] trazodone 100 mg tablet 200 mg PO QHS PRN Insomnia 03/08/18 [History Last Taken 08/04/21] buspirone 30 mg tablet 30 mg PO BID anxiety 06/27/19 [History Last Taken 08/03/21] clopidogrel 75 mg tablet 75 mg PO DAILY blood thinner 07/31/20 [History Last Taken 08/03/21] escitalopram oxalate 20 mg tablet 20 mg PO DAILY mental health 11/14/20 [History Last Taken 08/03/21] fluticasone propionate 230 mcg-salmeterol 21 mcg/actuation HFA inhaler (Advair HFA) 2 puff inhalation BID SOB 11/14/20 [History Last Taken 08/05/21] promethazine 25 mg tablet 25 mg PO BID PRN PRN Nausea 11/14/20 [History Last Taken 08/04/21] potassium chloride 20 mEq tablet,extended release (K-Tab) 40 meq PO DAILY potassium replacement 01/13/21 [History Last Taken 08/05/21] albuterol sulfate 2.5 mg/3 mL (0.083 %) solution for nebulization 2.5 mg (3 mL) inhalation Q4H PRN Sob &/Or Wheezing #180 mL 05/25/21 [Rx Last Taken Unknown] pantoprazole 40 mg tablet,delayed release 40 mg PO BID gerd 08/05/21 [History Last Taken 08/03/21] sucralfate 1 gram tablet 1 g PO Q6H stomach 08/05/21 [History Last Taken 08/04/21] albuterol sulfate 90 mcg/actuation aerosol inhaler 2 puff inhalation Q4H PRN PRN SOB &/or Wheezing #8.5 grams 03/03/22 [Rx Last Taken Unknown] fluticasone propionate 50 mcg/actuation nasal spray,suspension 1 spray intranasal BID allergies #16 grams 06/29/22 [Rx Last Taken Unknown] amlodipine 10 mg tablet 10 mg PO DAILY blood pressure 07/22/22 [History Last Taken Unknown] apixaban 5 mg tablet (Eliquis) 5 mg PO BID blood thinner 07/22/22 [History Last Taken Unknown] dicyclomine 20 mg tablet 20 mg PO 4X/DAY Check with primary doctor 07/22/22 [History Last Taken Unknown] ferrous sulfate 325 mg (65 mg iron) tablet 325 mg PO QODAY anemia 07/22/22 [History Last Taken Unknown] glimepiride 2 mg tablet 2 mg PO BID diabetes 07/22/22 [History Last Taken Unknown] insulin glargine 100 unit/mL (3 mL) subcutaneous pen (Lantus Solostar U-100 Insulin) 40 unit subcut BID diabetes 07/22/22 [History Last Taken Unknown] lamotrigine 25 mg tablet 100 mg PO DAILY Check with primary doctor 07/22/22 [History Last Taken Unknown] sucralfate 1 gram tablet (Carafate) 1 g PO 4X/DAY stomach 07/22/22 [History Last Taken Unknown] tiotropium bromide 2.5 mcg/actuation mist for inhalation (Spiriva Respimat) 2 puff inhalation DAILY copd 07/22/22 [History Last Taken Unknown] tizanidine 4 mg capsule 4 mg PO Q8H PRN Muscle Spasm 07/22/22 [History Last Taken Unknown] hydrocodone-acetaminophen 5-325mg 5mg-325mg 1 tab PO Q6H PRN PRN Pain 3 days #10 TABLETS 07/27/22 [Rx Last Taken Unknown] melatonin 10 mg tablet 10 mg PO QHS PRN PRN Insomnia 08/17/22 [History Last Taken Unknown] metoprolol succinate 50 mg tablet,extended release 24 hr 50 mg PO DAILY heart 08/17/22 [History Last Taken Unknown] furosemide 40 mg tablet (Lasix) 40 mg PO DAILY #30 tabs 08/19/22 [Rx Last Taken Unknown] levofloxacin 750 mg tablet 750 mg PO DAILY #5 tabs 08/19/22 [Rx Last Taken Unknown] prednisone 20 mg tablet 40 mg (2 x 20 mg) PO DAILY #10 tabs 08/19/22 [Rx Last Taken Unknown] nystatin 100,000 unit/mL oral suspension 5 ml mucous membrane TID #250 mL 08/22/22 [Rx Last Taken Unknown] montelukast 10 mg tablet 10 mg PO DAILY pain #90 tabs 08/31/22 [Rx Last Taken Unknown] nitrofurantoin monohydrate/macrocrystals 100 mg capsule 100 mg PO Q12 #14 CAPSULES 08/31/22 [Rx Last Taken Unknown] Allergy/AdvReac Type Severity Reaction Status Date / Time tramadol [From [facility]] Allergy Severe Blisters, Verified 07/27/22 13:36 itching amoxicillin Allergy Itching Verified 07/27/22 13:36 erythromycin base Allergy Unknown Verified 07/27/22 13:36 methadone Allergy Itching Verified 07/27/22 13:36 metolazone Allergy Unknown Verified 07/27/22 13:36 Penicillins Allergy Hives Verified 07/27/22 13:36 Sulfa (Sulfonamide Allergy Hives Verified 07/27/22 13:36 Antibiotics) clarithromycin [From Biaxin] AdvReac Nausea Verified 07/27/22 13:36 ibuprofen AdvReac 3 BLEEDING Verified 07/27/22 13:36 ULCERS morphine AdvReac HEADACHE Verified 07/27/22 13:36 oxycodone [From Percocet] AdvReac Itching Verified 07/27/22 13:36 Family History Mother Heart disease Cancer uterine Father Hypertension Arthritis Hyperlipemia Grandmother Breast cancer Heart disease Grandfather Heart disease Sister Hypertension Surgical History History of appendectomy History of carpal tunnel surgery of left wrist History of cholecystectomy History of gastric bypass History of gastric bypass History of right ankle surgery history of right hip surgery History of tonsillectomy Presence of coronary angioplasty implant and graft (~02/07/11) Social History household members: none Smoking Status: Current every day smoker tobacco type: cigarettes alcohol intake: never substance use type: does not use caffeine: Yes (occasional) what type of physical activity do you participate in: none ROS ROS ED Constitutional Constitutional ED: Denies chills or fever(s) Gastrointestinal Gastrointestinal: Reports nausea; Denies abdominal pain or vomiting Genitourinary Genitourinary ED: Reports as per HPI; Denies hematuria Integumentary Reports wounds Neurologic Neurologic: Denies weakness EXAM Physical Exam Const Vital Signs: 08/31/22 13:53 Temperature 96.5 F L Temperature Source Temporal Pulse Rate 114 H Respiratory Rate 18 Blood Pressure 150/75 H Blood Pressure Mean 100 Pulse Ox 97 Oxygen Delivery Method Room Air Positive well nourished, well developed and obese General Appearance ED: well developed and NAD Nutritional Appearance: obese HEENT Reports moist mucous membranes Eyes PERRL and EOMs intact bilaterally Neck supple Neck Narrative: FROM Resp normal respiratory effort Effort and Inspection: able to speak in complete sentences GI normal to inspection, nondistended, normoactive bowel sounds and non-tender Narrative: Snider in place, bag has cloudy yellow urine with sediment, no blood or clots Back/Spine no CVA tenderness Neuro oriented x3, CN's II-XII intact bilaterally and no sensory deficits noted Psych mental status grossly normal MDM MDM MDM Narrative Medical decision making narrative: Urinalysis and culture ordered, and also nursing is changing her Snider catheter. She is empirically started on Macrobid and will be given a prescription for it, she has had a little bit of diarrhea lately and this will be less likely to cause antibiotic associated diarrhea. Discharge Plan Triage Chief Complaint: Complaint ED Provider: Rodrigo Delvalle Dx/Rx/DC Orders Clinical Impression: Urinary tract infection associated with catheterization of urinary tract Instructions: Catheter-Linked Urinary Tract ... Prescriptions: New nitrofurantoin monohyd/m-cryst [nitrofurantoin monohyd/m-cryst] 100 mg capsule 100 mg PO Q12 Qty: 14 0RF No Action albuterol sulfate 2.5 mg /3 mL (0.083 %) solution for nebulization 2.5 mg inhalation Q4H PRN (Reason: Sob &/Or Wheezing) Qty: 180 3RF fluticasone propionate 50 mcg/actuation spray,suspension 1 spray INTRANASAL BID Qty: 16 11RF atorvastatin 80 MG tablet 80 mg PO QHS Patient Comments: cholesterol risperidone 4 mg tablet 4 mg PO QHS Patient Comments: Take 1 tablet by mouth at bedtime trazodone 100 MG tablet 200 mg PO QHS PRN (Reason: Insomnia) pregabalin 75 MG capsule 75 mg PO TID buspirone 30 mg tablet 30 mg PO BID clopidogrel 75 mg tablet 75 mg PO DAILY promethazine 25 mg Tablet 25 mg PO BID PRN PRN (Reason: Nausea) escitalopram oxalate 20 mg Tablet 20 mg PO DAILY fluticasone propion-salmeterol [Advair HFA] 230-21 mcg/actuation Hfa Aerosol Inhaler 2 puff INHALATION BID potassium chloride [K-Tab] 20 mEq tablet extended release 40 meq PO DAILY sucralfate 1 gram tablet 1 g PO Q6H pantoprazole 40 mg tablet,delayed release (DR/EC) 40 mg PO BID sucralfate [Carafate] 1 gram Tablet 1 g PO 4X/DAY amlodipine 10 mg Tablet 10 mg PO DAILY dicyclomine 20 mg Tablet 20 mg PO 4X/DAY Eliquis 5 mg Tablet 5 mg PO BID glimepiride 2 mg Tablet 2 mg PO BID ferrous sulfate 325 mg (65 mg iron) Tablet 325 mg PO QODAY tizanidine 4 mg Capsule 4 mg PO Q8H PRN (Reason: Muscle Spasm) Spiriva Respimat 2.5 mcg/actuation Mist 2 puff INHALATION DAILY insulin glargine [Lantus Solostar U-100 Insulin] 100 unit/mL (3 mL) Insulin Pen 40 unit SUBCUT BID lamotrigine 25 mg Tablet 100 mg PO DAILY hydrocodone-acetaminophen 5-325 mg tablet 1 tab PO Q6H PRN PRN (Reason: Pain) 3 Days Qty: 10 0RF metoprolol succinate 50 mg Tablet Extended Release 24 Hr 50 mg PO DAILY melatonin 10 mg Tablet 10 mg PO QHS PRN PRN (Reason: Insomnia) prednisone 20 mg tablet 40 mg PO DAILY Qty: 10 0RF levofloxacin 750 mg tablet 750 mg PO DAILY Qty: 5 0RF furosemide [Lasix] 40 mg tablet 40 mg PO DAILY Qty: 30 1RF albuterol sulfate 90 mcg/actuation HFA aerosol inhaler 2 puff inhalation Q4H PRN PRN (Reason: SOB &/or Wheezing ) Qty: 8.5 11RF nystatin 100,000 unit/mL suspension 5 ml mucous membrane TID Qty: 250 1RF Rx Instructions: swish and swallow 5 cc three times per day for 10 days montelukast 10 mg tablet 10 mg PO DAILY Qty: 90 3RF Primary Care Provider: Janel Taylor Referrals: Janel Taylor MD [Primary Care Provider] - 3-5 Days Disposition Disposition: Home, Self Care
[2022-08-31 15:43] LABS: Mucous, Urine 0 SEEN /hpf (<or=2+)
[2022-08-31] MEDS: Nitrofurantoin Macrocrystals 100 MG Capsule PO (15:56)
[2022-08-31 16:26] LABS: Color, Urine Yellow (Yellow); Glucose, Dipstick 50 mg/dl (Normal); Ketone-Dipstick 5 mg/dl (Negative); Leukocyte Esterase-Dipstick 500 /ul (Negative); Nitrite-Dipstick Positive (Negative); Occult Blood-Urine 250 /ul (Negative); Protein-Dipstick 100 mg/dl (Negative); Specific Gravity, Urine 1.025 (1.002-1.030); Urine Clarity Cloudy (Clear); Urine Urobilinogen 4 mg/dl (Normal)
[2022-08-31] MEDS: HYDROcodone Bitartrate/Apap 5/325 Tablet PO (16:33)
[2022-08-31 16:36] VITALS: PULSE 99; RESP 19; O2SAT 100
[2022-08-31 16:56] LABS: Urine Bilirubin Dipstick 3 mg/dL (Negative)
[2022-08-31 17:00] LABS: Squamous Epithelial Cells - UA 10-25 SEEN /hpf (5-10)
[2022-08-31 17:01] LABS: Bacteria 3+ /hpf (None Seen); Red Blood Cells-Urine 25-50 SEEN /hpf (0-5); White Blood Cells 50-100 SEEN /hpf (0-5)
== END 2022-08-31 16:37 | disposition home or self-care (01) ==
PROVIDERS: Emergency Provider Emergency Medicine; PCP Family Medicine; Visit Provider Emergency Medicine
DX: T83.592A Infection and inflammatory reaction due to indwelling ureteral stent, initial encounter (principal); J43.9 Emphysema, unspecified; E11.9 Type 2 diabetes mellitus without complications; N39.0 Urinary tract infection, site not specified; E78.00 Pure hypercholesterolemia, unspecified; I25.10 Atherosclerotic heart disease of native coronary artery without angina pectoris; I10 Essential (primary) hypertension; F17.210 Nicotine dependence, cigarettes, uncomplicated; E66.9 Obesity, unspecified; Y73.8 Miscellaneous gastroenterology and urology devices associated with adverse incidents, not elsewhere classified
CPT/HCPCS: 51702; 81001; 87077; 87086; 87088; 87186; 99284

== ENCOUNTER 2022-09-14 14:40 | Emergency (ER) | payer MEDICARE, MEDICAID, SELFPAY ==
[2022-09-14 14:41] VITALS: BP 138/65; PULSE 63; RESP 13; TEMP 35.5; O2SAT 97; BMI 37.8
[2022-09-14 14:44] VITALS: O2SAT 97
--- NOTE | 2022-09-14 15:11 | ED.VIS.DYS ---
HPI History of Present Illness Chief Complaint: Shortness of Breath [facility] Medical History Anemia Asthma Atherosclerotic heart disease of [place] coronary artery without angina pectoris Benign essential hypertension BiPAP (biphasic positive airway pressure) dependence Bleeding tendency Blood loss anemia CAD (coronary artery disease) Cardiac dysrhythmia Chest pain Chest pain at rest Chronic cough Chronic narcotic use Closed fracture of proximal end of fibula COPD (chronic obstructive pulmonary disease) Current use of insulin Delayed surgical wound healing Diabetes Dislocation of hip, right, closed Emphysema of lung Gastroesophageal reflux disease High cholesterol Hip osteoarthritis History of left heart catheterization (LHC) (~07/05/21) History of pulmonary embolism History of revision of total replacement of right hip joint History of stress test Hypertension Irregular heart beat Irritable bowel Morbid obesity Myocardial infarct On home oxygen therapy RACHEL (obstructive sleep apnea) Pancreatitis Peptic ulcer Preoperative cardiovascular examination Presence of stent in coronary artery (~02/07/11) Pulmonary hypertension Schizoaffective disorder Schizophrenia Sleep apnea Smoker Spinal stenosis of lumbar region at multiple levels Stage 2 moderate COPD by GOLD classification Suspected COVID-19 virus infection Takotsubo cardiomyopathy Thyroid nodule Tobacco abuse Ulcer Vitamin D deficiency Home Medications atorvastatin 80 mg tablet 80 mg PO QHS cholesterol 08/22/15 [History Last Taken 08/03/21] pregabalin 75 mg capsule 75 mg PO TID PAIN 03/08/18 [History Last Taken 08/03/21] risperidone 4 mg tablet 4 mg PO QHS sleep 03/08/18 [History Last Taken 08/04/21] trazodone 100 mg tablet 200 mg PO QHS PRN Insomnia 03/08/18 [History Last Taken 08/04/21] buspirone 30 mg tablet 30 mg PO BID anxiety 06/27/19 [History Last Taken 08/03/21] clopidogrel 75 mg tablet 75 mg PO DAILY blood thinner 07/31/20 [History Last Taken 08/03/21] escitalopram oxalate 20 mg tablet 20 mg PO DAILY mental health 11/14/20 [History Last Taken 08/03/21] fluticasone propionate 230 mcg-salmeterol 21 mcg/actuation HFA inhaler (Advair HFA) 2 puff inhalation BID SOB 11/14/20 [History Last Taken 08/05/21] promethazine 25 mg tablet 25 mg PO BID PRN PRN Nausea 11/14/20 [History Last Taken 08/04/21] potassium chloride 20 mEq tablet,extended release (K-Tab) 40 meq PO DAILY potassium replacement 01/13/21 [History Last Taken 08/05/21] albuterol sulfate 2.5 mg/3 mL (0.083 %) solution for nebulization 2.5 mg (3 mL) inhalation Q4H PRN Sob &/Or Wheezing #180 mL 05/25/21 [Rx Last Taken Unknown] pantoprazole 40 mg tablet,delayed release 40 mg PO BID gerd 08/05/21 [History Last Taken 08/03/21] sucralfate 1 gram tablet 1 g PO Q6H stomach 08/05/21 [History Last Taken 08/04/21] fluticasone propionate 50 mcg/actuation nasal spray,suspension 1 spray intranasal BID allergies #16 grams 06/29/22 [Rx Last Taken Unknown] amlodipine 10 mg tablet 10 mg PO DAILY blood pressure 07/22/22 [History Last Taken Unknown] apixaban 5 mg tablet (Eliquis) 5 mg PO BID blood thinner 07/22/22 [History Last Taken Unknown] dicyclomine 20 mg tablet 20 mg PO 4X/DAY Check with primary doctor 07/22/22 [History Last Taken Unknown] ferrous sulfate 325 mg (65 mg iron) tablet 325 mg PO QODAY anemia 07/22/22 [History Last Taken Unknown] glimepiride 2 mg tablet 2 mg PO BID diabetes 07/22/22 [History Last Taken Unknown] insulin glargine 100 unit/mL (3 mL) subcutaneous pen (Lantus Solostar U-100 Insulin) 40 unit subcut BID diabetes 07/22/22 [History Last Taken Unknown] lamotrigine 25 mg tablet 100 mg PO DAILY Check with primary doctor 07/22/22 [History Last Taken Unknown] sucralfate 1 gram tablet (Carafate) 1 g PO 4X/DAY stomach 07/22/22 [History Last Taken Unknown] tiotropium bromide 2.5 mcg/actuation mist for inhalation (Spiriva Respimat) 2 puff inhalation DAILY copd 07/22/22 [History Last Taken Unknown] tizanidine 4 mg capsule 4 mg PO Q8H PRN Muscle Spasm 07/22/22 [History Last Taken Unknown] hydrocodone-acetaminophen 5-325mg 5mg-325mg 1 tab PO Q6H PRN PRN Pain 3 days #10 TABLETS 07/27/22 [Rx Last Taken Unknown] melatonin 10 mg tablet 10 mg PO QHS PRN PRN Insomnia 08/17/22 [History Last Taken Unknown] metoprolol succinate 50 mg tablet,extended release 24 hr 50 mg PO DAILY heart 08/17/22 [History Last Taken Unknown] furosemide 40 mg tablet (Lasix) 40 mg PO DAILY #30 tabs 08/19/22 [Rx Last Taken Unknown] levofloxacin 750 mg tablet 750 mg PO DAILY #5 tabs 08/19/22 [Rx Last Taken Unknown] prednisone 20 mg tablet 40 mg (2 x 20 mg) PO DAILY #10 tabs 08/19/22 [Rx Last Taken Unknown] nystatin 100,000 unit/mL oral suspension 5 ml mucous membrane TID #250 mL 08/22/22 [Rx Last Taken Unknown] montelukast 10 mg tablet 10 mg PO DAILY pain #90 tabs 08/31/22 [Rx Last Taken Unknown] nitrofurantoin monohydrate/macrocrystals 100 mg capsule 100 mg PO Q12 #14 CAPSULES 08/31/22 [Rx Last Taken Unknown] albuterol sulfate 90 mcg/actuation aerosol inhaler 2 puff inhalation Q4H PRN PRN SOB &/or Wheezing #8.5 grams 09/09/22 [Rx Last Taken Unknown] prednisone 50 mg tablet 50 mg PO DAILY #5 tabs 09/14/22 [Rx Last Taken Unknown] Allergy/AdvReac Type Severity Reaction Status Date / Time tramadol [From Ultram] Allergy Severe Blisters, Verified 09/14/22 14:44 itching amoxicillin Allergy Itching Verified 09/14/22 14:44 erythromycin base Allergy Unknown Verified 09/14/22 14:44 methadone Allergy Itching Verified 09/14/22 14:44 metolazone Allergy Unknown Verified 09/14/22 14:44 Penicillins Allergy Hives Verified 07/27/22 13:36 Sulfa (Sulfonamide Allergy Hives Verified 09/14/22 14:44 Antibiotics) clarithromycin [From Biaxin] AdvReac Nausea Verified 09/14/22 14:44 ibuprofen AdvReac 3 BLEEDING Verified 09/14/22 14:44 ULCERS morphine AdvReac HEADACHE Verified 09/14/22 14:44 oxycodone [From Percocet] AdvReac Itching Verified 09/14/22 14:44 Family History Mother Heart disease Cancer uterine Father Hypertension Arthritis Hyperlipemia Grandmother Breast cancer Heart disease Grandfather Heart disease Sister Hypertension Surgical History History of appendectomy History of carpal tunnel surgery of left wrist History of cholecystectomy History of gastric bypass History of gastric bypass History of right ankle surgery history of right hip surgery History of tonsillectomy Presence of coronary angioplasty implant and graft (~02/07/11) Social History household members: none Smoking Status: Current every day smoker tobacco type: cigarettes alcohol intake: never substance use type: does not use caffeine: Yes (occasional) what type of physical activity do you participate in: none EXAM Physical Exam Const Vital Signs: 09/14/22 14:41 09/14/22 14:44 09/14/22 15:46 Temperature 96 F L Temperature Source Temporal Pulse Rate 63 65 Respiratory Rate 13 26 H Respiratory Effort Normal Respiratory Depth Normal Respiratory Pattern Normal Blood Pressure 138/65 H 161/66 H Blood Pressure Mean 89 97 Pulse Ox 97 97 Oxygen Delivery Method Room Air Room Air Room Air 09/14/22 16:06 Temperature Temperature Source Pulse Rate 70 Respiratory Rate 20 H Respiratory Effort Respiratory Depth Respiratory Pattern Tachypnea Blood Pressure Blood Pressure Mean Pulse Ox Oxygen Delivery Method MDM MDM MDM Narrative Medical decision making narrative: HISTORY OF PRESENT ILLNESS: 57-year-old female here with shortness of breath exertion and dizziness. She states this been worse over last 24 hours. States she still using her baseline 3 use of oxygen at night. States she is got a cough Dr. Gaona sputum. Denies any lower extremity edema or unilateral leg swelling. No she has a history of PE but has been taking Eliquis daily last dose was today at noon. No hemoptysis, unilateral leg swelling, estrogen use, cancer or surgery. Denies any chest pain or palpitations associated. Denies any bleeding diathesis recently. REVIEW OF SYSTEMS: Pertinent positives: Shortness of breath, dyspnea on exertion, dizziness with exertion Pertinent negatives: Chest pain, focal weakness, palpitations PHYSICAL EXAM: Nursing triage notes reviewed, Vital signs reviewed Constitutional: please see mdm HENT: MMM Eyes: Pupils equal round and reactive to light, Extraocular muscles intact Neck: No stridor, no JVD, full neck ROM Lungs: Bilateral wheezes noted, no obvious focal consolidation, no conversational dyspnea Heart: Regular rate and rhythm, No murmurs, No rubs and No gallops, 2+ distal pulses (radial, femoral, posterior tibial) in all extremities Abdomen: Soft, there is no tenderness, rigidity, rebound or guarding, no obvious peritoneal signs, no palpable pulsatile abdominal masses, no auscultated abdominal bruit : No CVAT Extremities: No edema Neuro: Alert and oriented x3, neuro exam at baseline, cranial nerves II through XII are intact. No pain with extraocular muscle movement. There is negative test of skew. Normal speech. 5 of 5 strength in upper and lower extremities in flexion extension. Intact sensation to light touch in upper and lower extremity dermatomes. No truncal or extremity ataxia. No dysdiadochokinesia. Normal gait. 2+ reflexes. No meningeal signs. Negative Babinski. NIH of 0 Skin: No rash or lesions noted MEDICAL DECISION MAKING: Chief Complaint: Shortness of breath External records reviewed: Last echocardiogram from August 16, 2022 shows ejection fraction of 70% there were no regional wall motion abnormalities Factors affecting care: COPD, RACHEL, hyperlipidemia, status post bariatric surgery, anemia, peripheral artery disease, type 2 diabetes, Social determinants of health: Tobacco abuse ALL IMAGES (IF OBTAINED) HAVE BEEN PERSONALLY REVIEWED AND INTERPRETED BY MYSELF. EKG with normal sinus rhythm, normal axis, normal intervals, no obvious STEMI, [facility] Narrative: Patient was initially hemodynamically stable, afebrile, nontoxic-appearing. Patient was saturating well on room air with no conversational dyspnea or clinical evidence of respiratory failure. She had bilateral wheezes. I considered the following differential diagnosis: COPD exacerbation, CHF, ACS, anemia, arrhythmia, PE, pneumonia, viral illness I considered pulmonary embolism, consider CT of the chest however thought this was not indicated at this time given patient has been compliant with Eliquis and has no right heart strain, tachycardia, hypoxia or stigmata of VTE on exam. I obtained a broad lab and imaging work-up to further elucidate etiology the patient complaints. Labs images were unremarkable for signs of myocardial ischemia, symptom anemia, arrhythmia, pneumonia, CHF, viral illness or significant CO2 retention. Patient has oxygen at home she was given a DuoNeb here with improvement in lung function and symptomatology. She is likely some from a COPD exacerbation. She was encouraged to continue her home oxygen, home BiPAP, take steroids that were prescribed to follow-up with her primary care physician for further outpatient evaluation and treatment. She was told return to ED if symptoms change or worsen. The patient and/or family, caregivers express understanding. The patient and/or family, caregivers agrees with the plan. Total critical care time today provided was at least 0 minutes. This excludes separately billable procedures. Critical care time (if documented) is secondary to the patient having high probability of clinically significant/life threatening deterioration in the patient's condition which required my urgent intervention. Shared decision making: I will have a discussion with the patient and or visitors regarding risk/benefits of further testing or admission. They will be made aware of of the risk/benefits inherent in this decision they will be given the opportunity to voice understanding. Lab Data Attestation: I reviewed the patient's lab results. Lab results narrative: CBC with leukocytosis suggestive of systemic inflammation, no significant anemia, no thrombocytopenia BMP without significant electrolyte abnormalities, no anion gap to suggest endorgan hypoperfusion, no acute kidney injury Troponin is negative, no evidence of myocardial ischemia BNP within normal limits suggestive of no evidence of CHF, increased transmural pressure, volume overload or increased ventricular stretch VBG without evidence of respiratory acidosis, no significant CO2 retention to suggest a severe COPD exacerbation Labs: Laboratory Results - last 24 hr 09/14/22 09/14/22 15:35 16:45 WBC 11.4 H RBC 4.98 Hgb 13.2 Hct 41.2 MCV 82.7 MCH 26.5 L MCHC 32.0 RDW Std Deviation 49.9 H RDW Coeff of [place] 16.7 H Plt Count 286 MPV 10.1 Immature Gran % (Auto) 0.400 Neut % (Auto) 74.9 H Lymph % (Auto) 15.6 L [place] % (Auto) 5.5 Eos % (Auto) 2.6 Baso % (Auto) 1.0 Absolute Neuts (auto) 8.6 H Absolute Lymphs (auto) 1.78 Nucleated RBC % 0 Sodium Cancelled 137 Potassium Cancelled 4.0 Chloride Cancelled 105 Carbon Dioxide Cancelled 28.0 Anion Gap Cancelled 4 L BUN Cancelled 13 Creatinine Cancelled 0.94 Estim Creat Clear Calc Cancelled 54.62 Est GFR (MDRD) Af Amer Cancelled 79 Est GFR (MDRD) Non-Af Cancelled 65 BUN/Creatinine Ratio Cancelled 13.8 Glucose Cancelled 169 H Calcium Cancelled 8.9 Troponin I High Sens Cancelled 7 B-Natriuretic Peptide 90.7 ABG Data ABG results: ABG 09/14/22 15:59 Specimen Type MARILOU VBG pH 7.38 VBG pO2 39 VBG HCO3 25 VBG Total CO2 26 VBG O2 Sat (Calc) 72 H VBG Base Excess 0 POC Mix VBG pCO2 Pt Tmp 42.8 Radiography Diagnostic Testing: Clinical Impression(s) from Imaging Studies Chest X-Ray 09/14/22 16:05 IMPRESSION: No radiographic evidence of acute cardiopulmonary disease. Electronically Signed: Audie Niño MD at 16:19 EDT Reading Location ID and State: [facility] / [place] Tel , Service support , ADDENDUM: 09/14/22 1631 IMPRESSION: undefined Discharge Plan Triage Chief Complaint: Shortness of Breath Other Complaint: Lower Extremity Injury ED Provider: Amadou Shay Dx/Rx/DC Orders Clinical Impression: SOB (shortness of breath) on exertion Instructions: ED COPD Flare Prescriptions: New prednisone 50 mg tablet 50 mg PO DAILY Qty: 5 0RF No Action albuterol sulfate 2.5 mg /3 mL (0.083 %) solution for nebulization 2.5 mg inhalation Q4H PRN (Reason: Sob &/Or Wheezing) Qty: 180 3RF fluticasone propionate 50 mcg/actuation spray,suspension 1 spray INTRANASAL BID Qty: 16 11RF atorvastatin 80 MG tablet 80 mg PO QHS Patient Comments: cholesterol risperidone 4 mg tablet 4 mg PO QHS Patient Comments: Take 1 tablet by mouth at bedtime trazodone 100 MG tablet 200 mg PO QHS PRN (Reason: Insomnia) pregabalin 75 MG capsule 75 mg PO TID buspirone 30 mg tablet 30 mg PO BID clopidogrel 75 mg tablet 75 mg PO DAILY promethazine 25 mg Tablet 25 mg PO BID PRN PRN (Reason: Nausea) escitalopram oxalate 20 mg Tablet 20 mg PO DAILY fluticasone propion-salmeterol [Advair HFA] 230-21 mcg/actuation Hfa Aerosol Inhaler 2 puff INHALATION BID potassium chloride [K-Tab] 20 mEq tablet extended release 40 meq PO DAILY sucralfate 1 gram tablet 1 g PO Q6H pantoprazole 40 mg tablet,delayed release (DR/EC) 40 mg PO BID sucralfate [Carafate] 1 gram Tablet 1 g PO 4X/DAY amlodipine 10 mg Tablet 10 mg PO DAILY dicyclomine 20 mg Tablet 20 mg PO 4X/DAY Eliquis 5 mg Tablet 5 mg PO BID glimepiride 2 mg Tablet 2 mg PO BID ferrous sulfate 325 mg (65 mg iron) Tablet 325 mg PO QODAY tizanidine 4 mg Capsule 4 mg PO Q8H PRN (Reason: Muscle Spasm) Spiriva Respimat 2.5 mcg/actuation Mist 2 puff INHALATION DAILY insulin glargine [Lantus Solostar U-100 Insulin] 100 unit/mL (3 mL) Insulin Pen 40 unit SUBCUT BID lamotrigine 25 mg Tablet 100 mg PO DAILY hydrocodone-acetaminophen 5-325 mg tablet 1 tab PO Q6H PRN PRN (Reason: Pain) 3 Days Qty: 10 0RF metoprolol succinate 50 mg Tablet Extended Release 24 Hr 50 mg PO DAILY melatonin 10 mg Tablet 10 mg PO QHS PRN PRN (Reason: Insomnia) prednisone 20 mg tablet 40 mg PO DAILY Qty: 10 0RF levofloxacin 750 mg tablet 750 mg PO DAILY Qty: 5 0RF furosemide [Lasix] 40 mg tablet 40 mg PO DAILY Qty: 30 1RF nitrofurantoin monohyd/m-cryst [nitrofurantoin monohyd/m-cryst] 100 mg capsule 100 mg PO Q12 Qty: 14 0RF nystatin 100,000 unit/mL suspension 5 ml mucous membrane TID Qty: 250 1RF Rx Instructions: swish and swallow 5 cc three times per day for 10 days montelukast 10 mg tablet 10 mg PO DAILY Qty: 90 3RF albuterol sulfate 90 mcg/actuation HFA aerosol inhaler 2 puff inhalation Q4H PRN PRN (Reason: SOB &/or Wheezing ) Qty: 8.5 11RF Primary Care Provider: Janel Taylor Referrals: Janel Taylor MD [Primary Care Provider] - Activity Restrictions/Additional Instructions: Thank you for trusting us with your care today! Please take Tylenol (2 pills, 650 mg), ibuprofen (2 pills, 400 mg) every 6 hours as needed for pain and fever control. Please use your inhaler as needed. Please take prednisone daily for next 5 days. Please return to the emergency department if your symptoms change or worsen. If you develop worsening shortness of breath, chest pain, if you lose consciousness Please follow with your primary care physician for further outpatient evaluation and management. Disposition Disposition: Home, Self Care
--- NOTE | 2022-09-14 15:35 | EKG12_ITS ---
Test Reason : SOB Blood Pressure : / mmHG Vent. Rate : 072 BPM Atrial Rate : 072 BPM P-R Int : 160 ms QRS Dur : 086 ms QT Int : 418 ms P-R-T Axes : 036 008 027 degrees QTc Int : 457 ms Normal sinus rhythm Normal ECG Confirmed by MARYAM TAFOYA, JAZZMINE ([id number]), editor sound MARTHA SCOTT ([id number]) on 09/15/2022 2:24:19 PM Referred By: Confirmed By:JAZZMINE FRANCISCO MD
[2022-09-14 15:46] VITALS: BP 161/66; PULSE 65; RESP 26; O2SAT 97
[2022-09-14] MEDS: Ipratropium/Albuterol Sulfate 3 ML AMPUL.NEB INHALATION (15:59)
[2022-09-14] MEDS: Acetaminophen 325 MG Tablet 650 MG PO (15:59)
[2022-09-14 16:00] VITALS: BP 150/65; PULSE 65; RESP 14; O2SAT 98
[2022-09-14 16:02] LABS: Absolute Lymphocyte Count 1.78 X10^3/uL (0.83-4.51); Absolute Neutrophil Count 8.6 X10^3/uL (2.0-7.7); Basophil# 0.11 X10^3/uL; Eosinophils% 2.6 % (0-5); Hematocrit 41.2 % (37-47); Hemoglobin 13.2 g/dL (12.0-15.0); Lymphocyte # 1.78 X10^3/ul (0.83-4.51); Lymphocyte % 15.6 % (19-41); Mean Corpuscular Hgb 26.5 pg (27.0-32.0); Mean Corpuscular Volume 82.7 fL (81-99); Mean Platelet Vol. 10.1 fl (6.2-12.0); Monocyte# 0.63 X10^3/uL; Monocyte% 5.5 % (0-10); NRBC Flagged by Analyzer 0 % (0-5); Neutrophil # 8.55 X10^3/uL (2.7-7.7); Neutrophil % 74.9 % (47-70); Platelet Count 286 K/mm3 (150-450); RBC Distribution Width CV 16.7 % (11.6-14.6); RBC Distribution Width SD 49.9 fl (35.1-43.9); Red Blood Count 4.98 M/mm3 (4.2-5.4); White Blood Count 11.4 K/mm3 (4.4-11.0)
[2022-09-14 16:03] LABS: Blood Gas Specimen Type VEN; VBG BASE EXCESS 0 mmol/L (-1.0-3.5); VBG Bicarbonate 25 mmol/L (22-26); VBG PO2 39 mmHg (25-40); VBG SO2 72 % (50-70); VBG TCO2 26 mmol/L (23-33); VBG pCO2 42.8 mmHg (41-51); VBG pH 7.38 (7.32-7.42)
--- NOTE | 2022-09-14 16:05 | RAD_ITS ---
INDICATION: cough EXAMINATION/TECHNIQUE: X-RAY - XR Chest 2 Views COMPARISON: August 16, 2022. FINDINGS: LINES/DEVICES: None. LUNGS: No consolidation, edema or effusion. No pneumothorax. MEDIASTINUM AND CARDIOVASCULAR STRUCTURES: Cardiac silhouette not enlarged. BONES AND SOFT TISSUES: Unremarkable. RAD/Chest PA and Lateral IMPRESSION: No radiographic evidence of acute cardiopulmonary disease. Electronically Signed: Audie Niño MD at 16:19 EDT ,
[2022-09-14 16:06] VITALS: PULSE 70; RESP 20
[2022-09-14 16:36] LABS: BNP,B-Type NATRIURETIC PEPTIDE 90.7 pg/mL (0-100)
[2022-09-14 17:00] VITALS: BP 150/59; PULSE 68; RESP 20; O2SAT 96
[2022-09-14 17:28] LABS: Anion Gap 4 (5-15); BUN 13 mg/dL (7-18); BUN/Creat Ratio 13.8 RATIO (10-20); Calcium,Total 8.9 mg/dL (8.5-10.1); Chloride 105 mmol/L (98-107); Creatinine, Serum 0.94 mg/dL (0.55-1.02); EST Glomerular Filtration Rate 65 mL/min (>60); Est Glom Filt Rate - Afr Amer 79 mL/min (>60); Estimated Creatinine Clearance 54.62 ml/min; Glucose 169 mg/dL (74-106); Sodium Level 137 mmol/L (136-145); Troponin-I HS 7 pg/mL (3.0-54.0)
[2022-09-14] MEDS: Ketorolac 15 MG/ML Vial IV (17:38)
== END 2022-09-14 17:58 | disposition home or self-care (01) ==
PROVIDERS: Emergency Provider Emergency Medicine; PCP Family Medicine; Visit Provider Emergency Medicine
DX: R06.02 Shortness of breath (principal); E11.51 Type 2 diabetes mellitus with diabetic peripheral angiopathy without gangrene; J43.9 Emphysema, unspecified; Z79.4 Long term (current) use of insulin; E78.00 Pure hypercholesterolemia, unspecified; D64.9 Anemia, unspecified; I10 Essential (primary) hypertension; I25.10 Atherosclerotic heart disease of native coronary artery without angina pectoris; G47.33 Obstructive sleep apnea (adult) (pediatric); F17.210 Nicotine dependence, cigarettes, uncomplicated; R42 Dizziness and giddiness; Z79.01 Long term (current) use of anticoagulants; Z79.899 Other long term (current) drug therapy; Z98.84 Bariatric surgery status
CPT/HCPCS: 71046; 80048; 82803; 83880; 84484; 85025; 87428; 93005; 94640; 96374; 99285; A4216

== ENCOUNTER 2022-09-23 10:30 | Outpatient (RCR) | payer MEDICARE, SELFPAY ==
[2022-09-03 01:34] VITALS: BP 155/50; PULSE 64; RESP 18; TEMP 36.1; O2SAT 97; BMI 38.0
[2022-09-09 11:47] VITALS: BP 125/49; PULSE 69; RESP 18; TEMP 36.1; BMI 38.0
--- NOTE | 2022-09-09 11:49 | WC ---
pt right labia reddened and cleansed with hibicleanse . pt states I think I am yeast grown there. pt instructed to wash daily and with soap and water and air dry . pt states she applies Nystatin powder
--- NOTE | 2022-09-09 14:31 | PCM.WC.PN ---
History of Present Illness Date of Service: 09/09/22 Chief Complaint: nonhealing ulcers of left medial thigh, perineum History of Wound: Crystal is a 56-year-old patient with history of diabetic neuropathy, bipolar, schizoaffective disorder, depression, hypertension, cardiac disease, obesity, excessive tobacco use that presents to the wound center today for treatment and evaluation of ulcers of her left medial thigh and perineum that have been present for approx. 3 months. Patient has known problems healing and has been seen at the wound center for previous non-healing wounds of her lower extremities. She continues to smoke and is smoking approximately 2 packs/day. She does not know the cause of the ulcers of her left thigh and perineum but thinks it may have been from an abrasion from sliding to get out of a chair. She has tried treatment with Nystatin powder, Nystatin cream and Calmoseptine but they have not improved. Dr. Taylor performed a punch biopsy on 06/24/22 and this did not show any sign of malignancy and showed changes associated with a chronic wound and no evidence of fungal infection. She has been unable to keep this area covered due to dressings not staying in place. She does have DM and this is controlled, most recent A1C was 6.8% on 11/26/21. 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 This recurred after treatment with antiviral a few weeks prior. The area is very painful per patient and the ulcer of the perineum drains moderate to heavy and the thigh drains light to moderate. She is incontinent of urine. She denies fever, chills, increased erythema, odor. Subjective Subjective Crystal returns today for evaluation and treatment of ulcers of her left groin area. She has been having a hard time with the dressings. They are not staying in place. She has a catheter and is tolerating this well. She finished Augmentin. Denies fever or chills. Pain is severe. She also has 2 areas on her right labia that look like herpes ulcers. She continues Acyclovir. She has yeast infection in groin area. Objective Data Objective Data Vital Signs: Vital Signs Temp Pulse Resp BP Pulse Ox 97 F L 69 18 125/49 H 97 09/09/22 11:47 09/09/22 11:47 09/09/22 11:47 09/09/22 11:47 09/03/22 01:34 Weight: 97.522 kg Body Mass Index (BMI) 38.0 Physical Exam Const alert, oriented x3 and no apparent distress General Appearance: cooperative and comfortable HEENT normocephalic and head/scalp atraumatic Resp normal respiratory effort Effort and Inspection: able to speak in complete sentences Cardio regular rate and regular rhythm Skin Skin Narrative: right groin with vesicular rash Wounds: wounds noted Wound Narrative: as in clinical panel Psych mental status grossly normal, thought process normal, cooperative and affect normal Debridement Note Debridement Note Wound debrided: Left medial posterior thigh Laterality: Left Wound Grade/Stage: Stage 3 Type of Debridement: Excisional debridement Anesthesia Used: 4% Lidocaine Solution, 5% Lidocaine Gel and Cetacaine Depth: Down to and including healthy tissue and in the subcutaneous layer Percentage of wound debrided: 100 Instrument Used: 7mm curette Tissue Removed: Yellow slough, devitalized tissue Severity: Fat Layer Exposed Amount of bleeding with debridement: Mild Bleeding Controlled with: Compression and gauze Patient tolerated procedure: Patient tolerated procedure well Post-Debridement Measurements and Additional Note: Post-Debridement Measurements/Treatment - Nurse 1 - General Ulcer Assessment Start: 09/09/22 11:47 Freq: Status: Active Protocol: [email or web address].[email or web address] Activity Type Activity Date Activity User E-sign Co-sign Detail Recorded Client Recorded Date Recorded By Document 09/09/22 11:47 [id number] 09/09/22 11:51 RB 09/09/22 11:47 - Today's Visit Information Type of service Follow-up Visit (Physician/[employer]ER ) Arrival Mode Ambulatory, Walker Transfer Assistance None Patient Identification Verified (Name & Yes ) Patient Requires Transmission-Based No Precautions Height and Weight Body Mass Index (BMI) 38.0 BMI Classification Obese Vital Signs Temperature (97.8 F-99.1 F) 97 F L Temperature Source Temporal Pulse Rate (60-100) 69 Pulse Location Monitor Respiratory Rate (12-18) 18 Respiratory rate source Observation Blood Pressure (90/60-120/80) 125/49 H Blood Pressure Mean (mm Hg) 74 Source Monitor Position Semi-Fowlers Blood Pressure Location Left Arm History Since Last Visit- (Skip if this is Patient's initial visit) Have you changed medications since your Yes last visit? Had a fall/change in ADL's that may No increase risk of falls Signs or symptoms of abuse and/or No neglect since last visit Have you been in the hospital since your No last visit? Has dressing in place as prescribed Yes Has compression in place as prescribed No Has offloadiing in place as prescribed No Experienced any changes in pain level or No management Pain Scale: 0-10 Numeric Is Patient Pain Free? No WC - Nurse 1 - General Ulcer Measurement Start: 09/09/22 11:47 Freq: Status: Active Protocol: Activity Type Activity Date Activity User E-sign Co-sign Detail Recorded Client Recorded Date Recorded By Document 09/09/22 11:47 TONI [id number] 09/09/22 11:51 RB 09/09/22 11:47 Wound Center Nurse 1 13. R buttock -Current Size (cm) - Length 0.1 -Current Size (cm) - Width 0.1 -Current Size (cm) - Depth 0.1 -Total Square Cm 0.01 -Anesthetic Used 5% Lidocaine Gel 12. R labia -Combined with other wound No -Current Size (cm) - Length 0.1 -Current Size (cm) - Width 0.1 -Current Size (cm) - Depth 0.1 -Total Square Cm 0.01 -Anesthetic Used 5% Lidocaine Gel #11- Left MED POST THIGH -Combined with other wound No -Current Size (cm) - Length 0.1 -Current Size (cm) - Width 0.1 -Current Size (cm) - Depth 0.1 -Total Square Cm 0.01 -Anesthetic Used 5% Lidocaine Gel #10- L BUTTOCK -Combined with other wound No -Current Size (cm) - Length 0.1 -Current Size (cm) - Width 0.1 -Current Size (cm) - Depth 0.1 -Total Square Cm 0.01 -Anesthetic Used 5% Lidocaine Gel 09/09/22 11:49 Wound Center by Kenyetta Clarke pt right labia reddened and cleansed with hibicleanse . pt states I think I am yeast grown there. pt instructed to wash daily and with soap and water and air dry . pt states she applies Nystatin powder Initialized on 09/09/22 11:49 - END OF NOTE WC - Nurse 2 - General Ulcer CM Notes Start: 09/09/22 11:47 Freq: Status: Active Protocol: Activity Type Activity Date Activity User E-sign Co-sign Detail Recorded Client Recorded Date Recorded By Document 09/09/22 11:57 MW [id number] 09/09/22 12:06 MW 09/09/22 11:57 Wound Center Nurse 2 13. R buttock -Time 12:00 -Correct Patient Yes -Correct Side, Site, Position Yes -Correct Procedure Yes -Procedure Performed No -Post Debridement (cm) - Length 0 -Post Debridement (cm) - Width 0 -Post Debridement (cm) - Depth 0 -Total Square (Post) (cm) 0 -Wound/Ulcer Outcome Healed- Epithelialized 12. R labia -Time 12:00 -Correct Patient Yes -Correct Side, Site, Position Yes -Correct Procedure Yes -Procedure Performed No -Tunneling No -Undermining/Tunneling No -Circular Undermining No -Wound/Ulcer Outcome Not Healed -Ulcer Cleansing Rinsed/ Irrigated with Saline -Foul Odor after Cleansing No -Bioengineered Tissue No -Bleeding Controlled with NA #11- Left MED POST THIGH -Time 12:02 -Correct Patient Yes -Correct Side, Site, Position Yes -Correct Procedure Yes -Procedure Performed Yes -Type of Procedure Debridement -Clinical Debridement Subcutaneous -Tissue Removed Subcutaneous -Post Debridement (cm) - Length 1.5 -Post Debridement (cm) - Width 2.0 -Post Debridement (cm) - Depth 0.1 -Total Square (Post) (cm) 3.00 -Area of Debridement (cm) - Length 1.5 -Area of Debridement (cm) - Width 2.0 -Total Square (Area) (cm) 3.00 -Tunneling No -Undermining/Tunneling No -Circular Undermining No -Wound/Ulcer Outcome Not Healed -Ulcer Cleansing Rinsed/ Irrigated with Saline -Foul Odor after Cleansing No -Bioengineered Tissue No -Bleeding Controlled with Pressure -Treatment Response Procedure Tolerated Well -Offloading No -Debridement - Subq, 1st 20sq cm Yes #10- L BUTTOCK -Time 12:03 -Correct Patient Yes -Correct Side, Site, Position Yes -Correct Procedure Yes -Procedure Performed Yes -Type of Procedure Debridement -Clinical Debridement Subcutaneous -Tissue Removed Subcutaneous -Post Debridement (cm) - Length 1.7 -Post Debridement (cm) - Width 1.1 -Post Debridement (cm) - Depth 0.1 -Total Square (Post) (cm) 1.87 -Area of Debridement (cm) - Length 1.7 -Area of Debridement (cm) - Width 1.1 -Total Square (Area) (cm) 1.87 -Tunneling No -Undermining/Tunneling No -Circular Undermining No -Wound/Ulcer Outcome Not Healed -Ulcer Cleansing Rinsed/ Irrigated with Saline -Foul Odor after Cleansing No -Bioengineered Tissue No -Bleeding Controlled with Pressure -Treatment Response Procedure Tolerated Well -Offloading No -Debridement - Subq, 1st 20sq cm No Pain Scale: 0-10 Numeric Is Patient Pain Free? Yes Additional Wound Wound debrided: left buttock Laterality: Left Wound Grade/Stage: Stage 3 Type of Debridement: Excisional debridement Anesthesia Used: 4% Lidocaine Solution, 5% Lidocaine Gel and Cetacaine Depth: Down to and including healthy tissue and in the subcutaneous layer Percentage of wound debrided: 100 Instrument Used: 7mm curette Tissue Removed: Yellow slough, devitalized tissue Severity: Fat Layer Exposed Amount of bleeding with debridement: Mild Bleeding Controlled with: Compression and gauze Patient tolerated procedure: Patient tolerated procedure well Assessment/Plan Assessment/Plan (1) Morbid obesity due to excess calories: CODE(S): E66.01 - Morbid (severe) obesity due to excess calories (2) Type 2 diabetes mellitus: CODE(S): E11.9 - Type 2 diabetes mellitus without complications QUALIFIERS: Diabetes mellitus complication status: with neurologic complications Diabetes mellitus complication detail: with polyneuropathy Diabetes mellitus snf insulin use: with snf use Qualified Code(s): E11.42 - Type 2 diabetes mellitus with diabetic polyneuropathy; Z79.4 - exterminator termite (current) use of insulin (3) Type 2 diabetes mellitus with diabetic polyneuropathy: CODE(S): E11.42 - Type 2 diabetes mellitus with diabetic polyneuropathy QUALIFIERS: Diabetes mellitus exterminator termite insulin use: with exterminator termite use Qualified Code(s): E11.42 - Type 2 diabetes mellitus with diabetic polyneuropathy; Z79.4 - prison (current) use of insulin (4) COPD (chronic obstructive pulmonary disease): CODE(S): J44.9 - Chronic obstructive pulmonary disease, unspecified QUALIFIERS: COPD type: unspecified COPD Qualified Code(s): J44.9 - Chronic obstructive pulmonary disease, unspecified (5) Decubitus ulcer of left buttock, stage 3: CODE(S): L89.323 - Pressure ulcer of left buttock, stage 3 (6) Decubitus ulcer of left thigh, stage 3: CODE(S): L89.223 - Pressure ulcer of left hip, stage 3 (7) Chronic ulcer of left thigh with fat layer exposed: CODE(S): L97.122 - Non-pressure chronic ulcer of left thigh with fat layer exposed PLAN: Plan Debridement performed today in clinic as annotated above. At home wound-care instructions: Will dress left buttock ulcer with Kayy and left thigh ulcer with Kayy and cover both with gauze and change daily. Keep dressing clean and dry. Will continue Snider catheter. Off-loading: The patient was instructed to avoid pressure and friction on the affected areas. Reposition every 2 hours at minimum. Avoid prolonged standing and/or dangling of legs. When seated, feet should be elevated at chest level. Frequent ambulation is encouraged. Diet: Patient encouraged to increase protein intake while taking caution to avoid high carbohydrate and/or sugar intake. Labs/cultures/imaging: Follow-up: Return for wound care follow up in 1 week. Return sooner or report to the emergency room should symptoms worsen, or new symptoms arise. Note: [employer] speech recognition telegraph repeater technician software was used to create portions of this document. Sound-alike and misspelled words, as well as other telegraph repeater technician errors may be contained in the documentation.
[2022-09-16 12:12] LABS: Bacteria 0 SEEN /hpf (None Seen); Mucous, Urine 0 SEEN /hpf (<or=2+); Red Blood Cells-Urine 0 SEEN /hpf (0-5); Squamous Epithelial Cells - UA 0 SEEN /hpf (5-10); White Blood Cells 0 SEEN /hpf (0-5)
[2022-09-16 12:35] LABS: Color, Urine Straw (Yellow); Glucose, Dipstick 1000 mg/dl (Normal); Ketone-Dipstick Negative (Negative); Leukocyte Esterase-Dipstick Negative /ul (Negative); Nitrite-Dipstick Negative (Negative); Occult Blood-Urine Negative /ul (Negative); Protein-Dipstick Negative (Negative); Specific Gravity, Urine 1.005 (1.002-1.030); Urine Bilirubin Dipstick Negative (Negative); Urine Clarity Sl. Cloudy (Clear); Urine Urobilinogen Normal (Normal); Urine pH 6.5 (5.0 - 8.0)
--- NOTE | 2022-09-16 14:39 | PN.PCM_ITS ---
History of Present Illness Date of Service: 09/16/22 Chief Complaint: nonhealing ulcers of left medial thigh, perineum History of Wound: Crystal is a 56-year-old patient with history of diabetic neuropathy, bipolar, schizoaffective disorder, depression, hypertension, cardiac disease, obesity, excessive tobacco use that presents to the wound center today for treatment and evaluation of ulcers of her left medial thigh and perineum that have been present for approx. 3 months. Patient has known problems healing and has been seen at the wound center for previous non-healing wounds of her lower extremities. She continues to smoke and is smoking approximately 2 packs/day. She does not know the cause of the ulcers of her left thigh and perineum but thinks it may have been from an abrasion from sliding to get out of a chair. She has tried treatment with Nystatin powder, Nystatin cream and Calmoseptine but they have not improved. Dr. Taylor performed a punch biopsy on 06/24/22 and this did not show any sign of malignancy and showed changes associated with a chronic wound and no evidence of fungal infection. She has been unable to keep this area covered due to dressings not staying in place. She does have DM and this is controlled, most recent A1C was 6.8% on 11/26/21. 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 This recurred after treatment with antiviral a few weeks prior. The area is very painful per patient and the ulcer of the perineum drains moderate to heavy and the thigh drains light to moderate. She is incontinent of urine. She denies fever, chills, increased erythema, odor. Subjective Subjective Crystal returns today for evaluation and treatment of ulcers of her left groin area. She has been having a hard time with the dressings. They are not staying in place. She has a catheter and is tolerating this well. She finished Augmentin. Denies fever or chills. Pain is severe. She also has 2 areas on her right labia that look like herpes ulcers. She continues Acyclovir. She has yeast infection in groin area. Objective Data Objective Data Vital Signs: Vital Signs Temp Pulse Resp BP Pulse Ox 97 F L 69 18 125/49 H 97 09/09/22 11:47 09/09/22 11:47 09/09/22 11:47 09/09/22 11:47 09/03/22 01:34 Weight: 97.522 kg Body Mass Index (BMI) 38.0 Lab / Micro Data Labs: Laboratory Results - last 24 hr 09/16/22 10:16: Urine Color Straw, Urine Clarity Sl. Cloudy, Urine pH 6.5, Ur Specific Channing 1.005, Urine Protein Negative, Urine Glucose (UA) 1000 H, Urine Ketones Negative, Urine Occult Blood Negative, Urine Nitrite Negative, Urine Bilirubin Negative, Urine Urobilinogen Normal, Ur Leukocyte Esterase Negative, Urine RBC 0 SEEN, Urine WBC 0 SEEN, Ur Squamous Epith Cells 0 SEEN, Urine Bacteria 0 SEEN, Urine Mucus 0 SEEN Physical Exam Const alert, oriented x3 and no apparent distress General Appearance: cooperative and comfortable HEENT normocephalic and head/scalp atraumatic Resp normal respiratory effort Effort and Inspection: able to speak in complete sentences Cardio regular rate and regular rhythm Skin Skin Narrative: right groin with vesicular rash Wounds: wounds noted Wound Narrative: as in clinical panel Psych mental status grossly normal, thought process normal, cooperative and affect normal Debridement Note Debridement Note Wound debrided: Left medial posterior thigh Laterality: Left Wound Grade/Stage: Stage 3 Type of Debridement: Excisional debridement Anesthesia Used: 4% Lidocaine Solution, 5% Lidocaine Gel and Cetacaine Depth: Down to and including healthy tissue and in the subcutaneous layer Percentage of wound debrided: 100 Instrument Used: 7mm curette Tissue Removed: Yellow slough, devitalized tissue Severity: Fat Layer Exposed Amount of bleeding with debridement: Mild Bleeding Controlled with: Compression and gauze Patient tolerated procedure: Patient tolerated procedure well Post-Debridement Measurements and Additional Note: Post-Debridement Measurements/Treatment - Nurse 1 - General Ulcer Assessment Start: 09/09/22 11:47 Freq: Status: Active Protocol: LISY Activity Type Activity Date Activity User E-sign Co-sign Detail Recorded Client Recorded Date Recorded By Document 09/09/22 11:47 TONI [id number] 09/09/22 11:51 TONI 09/09/22 11:47 - Today's Visit Information Type of service Follow-up Visit (Physician/NEWS COPY EDITOR ) Arrival Mode Ambulatory, Walker Transfer Assistance None Patient Identification Verified (Name & Yes ) Patient Requires Transmission-Based No Precautions Height and Weight Body Mass Index (BMI) 38.0 BMI Classification Obese Vital Signs Temperature (97.8 F-99.1 F) 97 F L Temperature Source Temporal Pulse Rate (60-100) 69 Pulse Location Monitor Respiratory Rate (12-18) 18 Respiratory rate source Observation Blood Pressure (90/60-120/80) 125/49 H Blood Pressure Mean (mm Hg) 74 Source Monitor Position Semi-Fowlers Blood Pressure Location Left Arm History Since Last Visit- (Skip if this is Patient's initial visit) Have you changed medications since your Yes last visit? Had a fall/change in ADL's that may No increase risk of falls Signs or symptoms of abuse and/or No neglect since last visit Have you been in the hospital since your No last visit? Has dressing in place as prescribed Yes Has compression in place as prescribed No Has offloadiing in place as prescribed No Experienced any changes in pain level or No management Pain Scale: 0-10 Numeric Is Patient Pain Free? No WC - Nurse 1 - General Ulcer Measurement Start: 09/09/22 11:47 Freq: Status: Active Protocol: Activity Type Activity Date Activity User E-sign Co-sign Detail Recorded Client Recorded Date Recorded By Document 09/09/22 11:47 RB [id number] 09/09/22 11:51 RB 09/09/22 11:47 Wound Center Nurse 1 13. R buttock -Current Size (cm) - Length 0.1 -Current Size (cm) - Width 0.1 -Current Size (cm) - Depth 0.1 -Total Square Cm 0.01 -Anesthetic Used 5% Lidocaine Gel 12. R labia -Combined with other wound No -Current Size (cm) - Length 0.1 -Current Size (cm) - Width 0.1 -Current Size (cm) - Depth 0.1 -Total Square Cm 0.01 -Anesthetic Used 5% Lidocaine Gel #11- Left MED POST THIGH -Combined with other wound No -Current Size (cm) - Length 0.1 -Current Size (cm) - Width 0.1 -Current Size (cm) - Depth 0.1 -Total Square Cm 0.01 -Anesthetic Used 5% Lidocaine Gel #10- L BUTTOCK -Combined with other wound No -Current Size (cm) - Length 0.1 -Current Size (cm) - Width 0.1 -Current Size (cm) - Depth 0.1 -Total Square Cm 0.01 -Anesthetic Used 5% Lidocaine Gel 09/09/22 11:49 Wound Center by Kenyetta Clarke pt right labia reddened and cleansed with hibicleanse . pt states I think I am yeast grown there. pt instructed to wash daily and with soap and water and air dry . pt states she applies Nystatin powder Initialized on 09/09/22 11:49 - END OF NOTE WC - Nurse 2 - General Ulcer CM Notes Start: 09/09/22 11:47 Freq: Status: Active Protocol: Activity Type Activity Date Activity User E-sign Co-sign Detail Recorded Client Recorded Date Recorded By Document 09/09/22 11:57 MW [id number] 09/09/22 12:06 MW Document 09/16/22 11:25 MW [id number] 09/16/22 11:30 MW 09/09/22 09/16/22 11:57 11:25 Wound Center Nurse 2 13. R buttock -Time 12:00 -Correct Patient Yes -Correct Side, Site, Position Yes -Correct Procedure Yes -Procedure Performed No -Post Debridement (cm) - Length 0 -Post Debridement (cm) - Width 0 -Post Debridement (cm) - Depth 0 -Total Square (Post) (cm) 0 -Wound/Ulcer Outcome Healed- Epithelialized 12. R labia -Time 12:00 11:28 -Correct Patient Yes Yes -Correct Side, Site, Position Yes Yes -Correct Procedure Yes Yes -Procedure Performed No No -Post Debridement (cm) - Length 0.1 -Post Debridement (cm) - Width 0.1 -Post Debridement (cm) - Depth 0.1 -Total Square (Post) (cm) 0.01 -Tunneling No No -Undermining/Tunneling No No -Circular Undermining No No -Wound/Ulcer Outcome Not Healed Not Healed -Ulcer Cleansing Rinsed/ Rinsed/ Irrigated with Irrigated with Saline Saline -Foul Odor after Cleansing No No -Bioengineered Tissue No No -Bleeding Controlled with NA NA -Offloading No #11- Left MED POST THIGH -Time 12:02 11:29 -Correct Patient Yes Yes -Correct Side, Site, Position Yes Yes -Correct Procedure Yes Yes -Procedure Performed Yes Yes -Type of Procedure Debridement Debridement -Clinical Debridement Subcutaneous Subcutaneous -Tissue Removed Subcutaneous Subcutaneous -Post Debridement (cm) - Length 1.5 1.7 -Post Debridement (cm) - Width 2.0 1.7 -Post Debridement (cm) - Depth 0.1 0.1 -Total Square (Post) (cm) 3.00 2.89 -Area of Debridement (cm) - Length 1.5 1.7 -Area of Debridement (cm) - Width 2.0 1.7 -Total Square (Area) (cm) 3.00 2.89 -Tunneling No No -Undermining/Tunneling No No -Circular Undermining No No -Wound/Ulcer Outcome Not Healed Not Healed -Ulcer Cleansing Rinsed/ Rinsed/ Irrigated with Irrigated with Saline Saline -Foul Odor after Cleansing No No -Bioengineered Tissue No No -Bleeding Controlled with Pressure Pressure -Treatment Response Procedure Procedure Tolerated Well Tolerated Well -Offloading No No -Debridement - Subq, 1st 20sq cm Yes Yes #10- L BUTTOCK -Time 12:03 11:29 -Correct Patient Yes Yes -Correct Side, Site, Position Yes Yes -Correct Procedure Yes Yes -Procedure Performed Yes Yes -Type of Procedure Debridement Debridement -Clinical Debridement Subcutaneous Subcutaneous -Tissue Removed Subcutaneous Subcutaneous -Post Debridement (cm) - Length 1.7 1.3 -Post Debridement (cm) - Width 1.1 2.0 -Post Debridement (cm) - Depth 0.1 0.1 -Total Square (Post) (cm) 1.87 2.60 -Area of Debridement (cm) - Length 1.7 1.3 -Area of Debridement (cm) - Width 1.1 2.0 -Total Square (Area) (cm) 1.87 2.60 -Tunneling No No -Undermining/Tunneling No No -Circular Undermining No No -Wound/Ulcer Outcome Not Healed Not Healed -Ulcer Cleansing Rinsed/ Rinsed/ Irrigated with Irrigated with Saline Saline -Foul Odor after Cleansing No No -Bioengineered Tissue No No -Bleeding Controlled with Pressure Pressure -Treatment Response Procedure Procedure Tolerated Well Tolerated Well -Offloading No No -Debridement - Subq, 1st 20sq cm No No Pain Scale: 0-10 Numeric Is Patient Pain Free? Yes Yes Additional Wound Wound debrided: left buttock Laterality: Left Wound Grade/Stage: Stage 3 Type of Debridement: Excisional debridement Anesthesia Used: 4% Lidocaine Solution, 5% Lidocaine Gel and Cetacaine Depth: Down to and including healthy tissue and in the subcutaneous layer Percentage of wound debrided: 100 Instrument Used: 7mm curette Tissue Removed: Yellow slough, devitalized tissue Severity: Fat Layer Exposed Amount of bleeding with debridement: Mild Bleeding Controlled with: Compression and gauze Patient tolerated procedure: Patient tolerated procedure well Assessment/Plan Assessment/Plan (1) Morbid obesity due to excess calories: CODE(S): E66.01 - Morbid (severe) obesity due to excess calories (2) Type 2 diabetes mellitus: CODE(S): E11.9 - Type 2 diabetes mellitus without complications QUALIFIERS: Diabetes mellitus complication status: with neurologic complications Diabetes mellitus complication detail: with polyneuropathy Diabetes mellitus terminal computer operator insulin use: with terminal computer operator use Qualified Code(s): E11.42 - Type 2 diabetes mellitus with diabetic polyneuropathy; Z79.4 - continuous churn buttermaker (current) use of insulin (3) Type 2 diabetes mellitus with diabetic polyneuropathy: CODE(S): E11.42 - Type 2 diabetes mellitus with diabetic polyneuropathy QUALIFIERS: Diabetes mellitus senior living insulin use: with senior living use Qualified Code(s): E11.42 - Type 2 diabetes mellitus with diabetic polyneuropathy; Z79.4 - continuous churn buttermaker (current) use of insulin (4) COPD (chronic obstructive pulmonary disease): CODE(S): J44.9 - Chronic obstructive pulmonary disease, unspecified QUALIFIERS: COPD type: unspecified COPD Qualified Code(s): J44.9 - Chronic obstructive pulmonary disease, unspecified (5) Decubitus ulcer of left buttock, stage 3: CODE(S): L89.323 - Pressure ulcer of left buttock, stage 3 (6) Decubitus ulcer of left thigh, stage 3: CODE(S): L89.223 - Pressure ulcer of left hip, stage 3 (7) Chronic ulcer of left thigh with fat layer exposed: CODE(S): L97.122 - Non-pressure chronic ulcer of left thigh with fat layer exposed PLAN: Plan Debridement performed today in clinic as annotated above. At home wound-care instructions: Will dress left buttock ulcer with Kayy and left thigh ulcer with Kayy and cover both with gauze and change daily. Keep dressing clean and dry. Will continue Snider catheter. Off-loading: The patient was instructed to avoid pressure and friction on the affected areas. Reposition every 2 hours at minimum. Avoid prolonged standing and/or dangling of legs. When seated, feet should be elevated at chest level. Frequent ambulation is encouraged. Diet: Patient encouraged to increase protein intake while taking caution to avoid high carbohydrate and/or sugar intake. Labs/cultures/imaging: Follow-up: Return for wound care follow up in 1 week. Return sooner or report to the emergency room should symptoms worsen, or new symptoms arise. Note: [employer] speech recognition data modeler software was used to create portions of this document. Sound-alike and misspelled words, as well as other data modeler errors may be contained in the documentation.
[2022-09-23 10:38] VITALS: BP 150/76; PULSE 74; RESP 18; TEMP 36.1; BMI 38.0
--- NOTE | 2022-09-30 12:27 | PCM.WC.PN ---
History of Present Illness Date of Service: 09/23/22 Chief Complaint: nonhealing ulcers of left medial thigh, perineum History of Wound: Crystal is a 56-year-old patient with history of diabetic neuropathy, bipolar, schizoaffective disorder, depression, hypertension, cardiac disease, obesity, excessive tobacco use that presents to the wound center today for treatment and evaluation of ulcers of her left medial thigh and perineum that have been present for approx. 3 months. Patient has known problems healing and has been seen at the wound center for previous non-healing wounds of her lower extremities. She continues to smoke and is smoking approximately 2 packs/day. She does not know the cause of the ulcers of her left thigh and perineum but thinks it may have been from an abrasion from sliding to get out of a chair. She has tried treatment with Nystatin powder, Nystatin cream and Calmoseptine but they have not improved. Dr. Taylor performed a punch biopsy on 06/24/22 and this did not show any sign of malignancy and showed changes associated with a chronic wound and no evidence of fungal infection. She has been unable to keep this area covered due to dressings not staying in place. She does have DM and this is controlled, most recent A1C was 6.8% on 11/26/21. 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 This recurred after treatment with antiviral a few weeks prior. The area is very painful per patient and the ulcer of the perineum drains moderate to heavy and the thigh drains light to moderate. She is incontinent of urine. She denies fever, chills, increased erythema, odor. Subjective Subjective Crystal returns today for evaluation and treatment of ulcers of her left groin area. She has been having a hard time with the dressings. They are still not staying in place. She has a catheter and is tolerating this well. She finished Augmentin. Denies fever or chills. Pain is severe. She continues Acyclovir. She has yeast infection in groin area that is greatly improved after fluconazole treatment. Objective Data Objective Data Vital Signs: Vital Signs Temp Pulse Resp BP Pulse Ox 97 F L 74 18 150/76 H 97 09/23/22 10:38 09/23/22 10:38 09/23/22 10:38 09/23/22 10:38 09/03/22 01:34 Weight: 97.522 kg Body Mass Index (BMI) 38.0 Lab / Micro Data Micro: Microbiology 09/16/22 10:16 Urine, Random Urine Culture - Final Proteus mirabilis Physical Exam Const alert, oriented x3 and no apparent distress General Appearance: cooperative and comfortable HEENT normocephalic and head/scalp atraumatic Resp normal respiratory effort Effort and Inspection: able to speak in complete sentences Cardio regular rate and regular rhythm Skin Skin Narrative: right groin with vesicular rash Wounds: wounds noted Wound Narrative: as in clinical panel Psych mental status grossly normal, thought process normal, cooperative and affect normal Debridement Note Debridement Note Wound debrided: Left medial posterior thigh Laterality: Left Wound Grade/Stage: Stage 3 Type of Debridement: Excisional debridement Anesthesia Used: 4% Lidocaine Solution, 5% Lidocaine Gel and Cetacaine Depth: Down to and including healthy tissue and in the subcutaneous layer Percentage of wound debrided: 100 Instrument Used: 7mm curette Tissue Removed: Yellow slough, devitalized tissue Severity: Fat Layer Exposed Amount of bleeding with debridement: Mild Bleeding Controlled with: Compression and gauze Patient tolerated procedure: Patient tolerated procedure well Post-Debridement Measurements and Additional Note: Post-Debridement Measurements/Treatment - Nurse 1 - General Ulcer Assessment Start: 09/09/22 11:47 Freq: Status: Active Protocol: LISY Activity Type Activity Date Activity User E-sign Co-sign Detail Recorded Client Recorded Date Recorded By Document 09/09/22 11:47 [id number] 09/09/22 11:51 RB Document 09/23/22 10:38 [id number] 09/23/22 10:56 RB 09/09/22 09/23/22 11:47 10:38 - Today's Visit Information Type of service Follow-up Visit Follow-up Visit (Physician/GLOBAL LOGISTICS ANALYST (Physician/GLOBAL LOGISTICS ANALYST ) ) Arrival Mode Ambulatory, Ambulatory Walker Transfer Assistance None None Patient Identification Verified (Name & Yes Yes ) Patient Requires Transmission-Based No No Precautions Height and Weight Body Mass Index (BMI) 38.0 38.0 BMI Classification Obese Obese Vital Signs Temperature (97.8 F-99.1 F) 97 F L 97 F L Temperature Source Temporal Temporal Pulse Rate (60-100) 69 74 Pulse Location Monitor Monitor Respiratory Rate (12-18) 18 18 Respiratory rate source Observation Observation Blood Pressure (90/60-120/80) 125/49 H 150/76 H Blood Pressure Mean (mm Hg) 74 100 Source Monitor Monitor Position Semi-Fowlers Semi-Fowlers Blood Pressure Location Left Arm Left Arm History Since Last Visit- (Skip if this is Patient's initial visit) Have you changed medications since your Yes No last visit? Any new allergies or adverse reactions No Had a fall/change in ADL's that may No No increase risk of falls Signs or symptoms of abuse and/or No No neglect since last visit Have you been in the hospital since your No No last visit? Has dressing in place as prescribed Yes Yes Has compression in place as prescribed No No Has offloadiing in place as prescribed No No Experienced any changes in pain level or No No management Pain Scale: 0-10 Numeric Is Patient Pain Free? No Yes WC - Nurse 1 - General Ulcer Measurement Start: 09/09/22 11:47 Freq: Status: Active Protocol: Activity Type Activity Date Activity User E-sign Co-sign Detail Recorded Client Recorded Date Recorded By Document 09/09/22 11:47 RB [id number] 09/09/22 11:51 RB Document 09/23/22 10:38 RB [id number] 09/23/22 10:56 RB 09/09/22 09/23/22 11:47 10:38 Wound Center Nurse 1 13. R buttock -Current Size (cm) - Length 0.1 -Current Size (cm) - Width 0.1 -Current Size (cm) - Depth 0.1 -Total Square Cm 0.01 -Anesthetic Used 5% Lidocaine Gel 12. R labia -Combined with other wound No No -Current Size (cm) - Length 0.1 1 -Current Size (cm) - Width 0.1 1 -Current Size (cm) - Depth 0.1 0.1 -Total Square Cm 0.01 1 -Tunneling No -Undermining/Tunneling No -Circular Undermining No -Exudate Amt Medium -Exudate Type Serosanguineous -Wound Margin Distinct, Outline Attached -Granulation Amt Medium (34-66%) -Granulation Quality [place] -Slough/Fibrin Yes -Necrosis Amt Medium (34-66%) -Necrotic Tissue Type Adherent Slough -Structure Exposed N/A -Texture (Adriane-wound Skin Appearance) Assessed -Moisture (Adriane-wound Skin Appearance) Assessed -Color (Adriane-wound Skin Appearance) Assessed -Temperature (Adriane-wound Skin No Abnormality Appearance) (Pt Warm) -Tenderness on Palpation (Adriane-wound No Skin Appearance) -Ulcer Cleansing Wound Cleanser -Foul Odor after Cleansing No -Anesthetic Used 5% Lidocaine 5% Lidocaine Gel Gel #11- Left MED POST THIGH -Combined with other wound No No -Current Size (cm) - Length 0.1 2 -Current Size (cm) - Width 0.1 1.5 -Current Size (cm) - Depth 0.1 0.2 -Total Square Cm 0.01 3.0 -Tunneling No -Undermining/Tunneling No -Circular Undermining No -Exudate Amt Medium -Exudate Type Serosanguineous -Wound Margin Thickened & Rolled Under -Granulation Amt Medium (34-66%) -Granulation Quality [place] -Slough/Fibrin Yes -Necrosis Amt Medium (34-66%) -Necrotic Tissue Type Adherent Slough -Structure Exposed N/A -Texture (Adriane-wound Skin Appearance) Assessed -Moisture (Adriane-wound Skin Appearance) Assessed -Color (Adriane-wound Skin Appearance) Assessed -Temperature (Adriane-wound Skin No Abnormality Appearance) (Pt Warm) -Tenderness on Palpation (Adriane-wound No Skin Appearance) -Ulcer Cleansing Wound Cleanser -Foul Odor after Cleansing No -Anesthetic Used 5% Lidocaine 5% Lidocaine Gel Gel #10- L BUTTOCK -Combined with other wound No No -Current Size (cm) - Length 0.1 2 -Current Size (cm) - Width 0.1 1 -Current Size (cm) - Depth 0.1 0.3 -Total Square Cm 0.01 2 -Tunneling No -Undermining/Tunneling No -Circular Undermining No -Exudate Amt Medium -Exudate Type Serosanguineous -Wound Margin Thickened & Rolled Under -Granulation Amt Medium (34-66%) -Granulation Quality [place] -Slough/Fibrin Yes -Necrosis Amt Medium (34-66%) -Necrotic Tissue Type Adherent Slough -Structure Exposed N/A -Texture (Adriane-wound Skin Appearance) Assessed -Moisture (Adriane-wound Skin Appearance) Assessed -Color (Adriane-wound Skin Appearance) Assessed -Temperature (Adriane-wound Skin No Abnormality Appearance) (Pt Warm) -Tenderness on Palpation (Adriane-wound No Skin Appearance) -Ulcer Cleansing Wound Cleanser -Foul Odor after Cleansing No -Anesthetic Used 5% Lidocaine 5% Lidocaine Gel Gel 09/09/22 11:49 Wound Center by Kenyetta Clarke pt right labia reddened and cleansed with hibicleanse . pt states I think I am yeast grown there. pt instructed to wash daily and with soap and water and air dry . pt states she applies Nystatin powder Initialized on 09/09/22 11:49 - END OF NOTE WC - Nurse 2 - General Ulcer CM Notes Start: 09/09/22 11:47 Freq: Status: Active Protocol: Activity Type Activity Date Activity User E-sign Co-sign Detail Recorded Client Recorded Date Recorded By Document 09/09/22 11:57 MW [id number] 09/09/22 12:06 MW Document 09/16/22 11:25 MW [id number] 09/16/22 11:30 MW Document 09/23/22 11:08 MW [id number] 09/23/22 11:17 MW 09/09/22 09/16/22 09/23/22 11:57 11:25 11:08 Wound Center Nurse 2 13. R buttock -Time 12:00 -Correct Patient Yes -Correct Side, Site, Position Yes -Correct Procedure Yes -Procedure Performed No -Post Debridement (cm) - Length 0 -Post Debridement (cm) - Width 0 -Post Debridement (cm) - Depth 0 -Total Square (Post) (cm) 0 -Wound/Ulcer Outcome Healed- Epithelialized 12. R labia -Time 12:00 11:28 11:08 -Correct Patient Yes Yes Yes -Correct Side, Site, Position Yes Yes Yes -Correct Procedure Yes Yes Yes -Procedure Performed No No Yes -Type of Procedure Debridement -Clinical Debridement Subcutaneous -Tissue Removed Subcutaneous -Post Debridement (cm) - Length 0.1 0.8 -Post Debridement (cm) - Width 0.1 0.9 -Post Debridement (cm) - Depth 0.1 0.1 -Total Square (Post) (cm) 0.01 0.72 -Area of Debridement (cm) - Length 0.8 -Area of Debridement (cm) - Width 0.9 -Total Square (Area) (cm) 0.72 -Tunneling No No No -Undermining/Tunneling No No No -Circular Undermining No No No -Wound/Ulcer Outcome Not Healed Not Healed Not Healed -Ulcer Cleansing Rinsed/ Rinsed/ Rinsed/ Irrigated with Irrigated with Irrigated with Saline Saline Saline -Foul Odor after Cleansing No No No -Bioengineered Tissue No No No -Bleeding Controlled with NA NA Pressure -Treatment Response Procedure Tolerated Well -Offloading No No -Debridement - Subq, 1st 20sq cm Yes #11- Left MED POST THIGH -Time 12: 11: 11:08 -Correct Patient Yes Yes Yes -Correct Side, Site, Position Yes Yes Yes -Correct Procedure Yes Yes Yes -Procedure Performed Yes Yes Yes -Type of Procedure Debridement Debridement Debridement -Clinical Debridement Subcutaneous Subcutaneous Subcutaneous -Tissue Removed Subcutaneous Subcutaneous Subcutaneous -Post Debridement (cm) - Length 1.5 1.7 1.8 -Post Debridement (cm) - Width 2.0 1.7 1.8 -Post Debridement (cm) - Depth 0.1 0.1 0.2 -Total Square (Post) (cm) 3.00 2.89 3.24 -Area of Debridement (cm) - Length 1.5 1.7 1.8 -Area of Debridement (cm) - Width 2.0 1.7 1.8 -Total Square (Area) (cm) 3.00 2.89 3.24 -Tunneling No No No -Undermining/Tunneling No No No -Circular Undermining No No No -Wound/Ulcer Outcome Not Healed Not Healed Not Healed -Ulcer Cleansing Rinsed/ Rinsed/ Rinsed/ Irrigated with Irrigated with Irrigated with Saline Saline Saline -Foul Odor after Cleansing No No No -Bioengineered Tissue No No No -Bleeding Controlled with Pressure Pressure Pressure -Treatment Response Procedure Procedure Procedure Tolerated Well Tolerated Well Tolerated Well -Offloading No No No -Debridement - Subq, 1st 20sq cm Yes Yes No #10- L BUTTOCK -Time 12: 11:29 11:09 -Correct Patient Yes Yes Yes -Correct Side, Site, Position Yes Yes Yes -Correct Procedure Yes Yes Yes -Procedure Performed Yes Yes Yes -Type of Procedure Debridement Debridement Debridement -Clinical Debridement Subcutaneous Subcutaneous Subcutaneous -Tissue Removed Subcutaneous Subcutaneous Subcutaneous -Post Debridement (cm) - Length 1.7 1.3 1.5 -Post Debridement (cm) - Width 1.1 2.0 2.0 -Post Debridement (cm) - Depth 0.1 0.1 0.1 -Total Square (Post) (cm) 1.87 2.60 3.00 -Area of Debridement (cm) - Length 1.7 1.3 1.5 -Area of Debridement (cm) - Width 1.1 2.0 2.0 -Total Square (Area) (cm) 1.87 2.60 3.00 -Tunneling No No No -Undermining/Tunneling No No No -Circular Undermining No No No -Wound/Ulcer Outcome Not Healed Not Healed Not Healed -Ulcer Cleansing Rinsed/ Rinsed/ Rinsed/ Irrigated with Irrigated with Irrigated with Saline Saline Saline -Foul Odor after Cleansing No No No -Bioengineered Tissue No No No -Bleeding Controlled with Pressure Pressure Pressure -Treatment Response Procedure Procedure Procedure Tolerated Well Tolerated Well Tolerated Well -Offloading No No No -Debridement - Subq, 1st 20sq cm No No No Pain Scale: 0-10 Numeric Is Patient Pain Free? Yes Yes Yes - Nurse 3 - General Ulcer D/C NN Start: 09/09/22 11:47 Freq: Status: Active Protocol: Activity Type Activity Date Activity User E-sign Co-sign Detail Recorded Client Recorded Date Recorded By Document 09/23/22 11:26 DL [id number] 09/23/22 11:30 DL 09/23/22 11:26 Wound Care Center Nurse 3 12. R labia -Ulcer Cleansing Rinsed/ Irrigated with Saline -Foul Odor after Cleansing No -Primary Dressing Applied C Hydrogel ($) -Primary Dressing Covered/Secured with Dry Gauze, Secured with Tape #11- Left MED POST THIGH -Ulcer Cleansing Rinsed/ Irrigated with Saline -Foul Odor after Cleansing No -Other Dressing hydrogel -Primary Dressing Covered/Secured with Dry Gauze, Secured with Tape #10- L BUTTOCK -Ulcer Cleansing Rinsed/ Irrigated with Saline -Foul Odor after Cleansing No -Other Dressing hydrogel -Primary Dressing Covered/Secured with Dry Gauze, Secured with Tape Treatment Response Procedure Tolerated Well Pain Scale: 0-10 Numeric Is Patient Pain Free? Yes - Visit Discharge Discharge Condition Stable Ambulatory Status Ambulatory Transportation Private Auto Additional Wound Wound debrided: left buttock Laterality: Left Wound Grade/Stage: Stage 3 Type of Debridement: Excisional debridement Anesthesia Used: 4% Lidocaine Solution, 5% Lidocaine Gel and Cetacaine Depth: Down to and including healthy tissue and in the subcutaneous layer Percentage of wound debrided: 100 Instrument Used: 7mm curette Tissue Removed: Yellow slough, devitalized tissue Severity: Fat Layer Exposed Amount of bleeding with debridement: Mild Bleeding Controlled with: Compression and gauze Patient tolerated procedure: Patient tolerated procedure well Additional Wound Wound debrided: right labia Laterality: Right Wound Grade/Stage: Stage 2 Type of Debridement: Excisional debridement Anesthesia Used: 4% Lidocaine Solution, 5% Lidocaine Gel and Cetacaine Depth: Down to and including healthy tissue and in the subcutaneous layer Percentage of wound debrided: 100 Instrument Used: 5mm curette Tissue Removed: yellow slough, devitalized tissue Severity: Fat Layer Exposed Amount of bleeding with debridement: Mild Bleeding Controlled with: Compression and gauze Patient tolerated procedure: Patient tolerated procedure well Assessment/Plan Assessment/Plan (1) Morbid obesity due to excess calories: CODE(S): E66.01 - Morbid (severe) obesity due to excess calories (2) Type 2 diabetes mellitus: CODE(S): E11.9 - Type 2 diabetes mellitus without complications QUALIFIERS: Diabetes mellitus complication status: with neurologic complications Diabetes mellitus complication detail: with polyneuropathy Diabetes mellitus custodial insulin use: with intermediate manager use Qualified Code(s): E11.42 - Type 2 diabetes mellitus with diabetic polyneuropathy; Z79.4 - half-way (current) use of insulin (3) Type 2 diabetes mellitus with diabetic polyneuropathy: CODE(S): E11.42 - Type 2 diabetes mellitus with diabetic polyneuropathy QUALIFIERS: Diabetes mellitus custodial insulin use: with intermediate manager use Qualified Code(s): E11.42 - Type 2 diabetes mellitus with diabetic polyneuropathy; Z79.4 - long term care pharmacist (current) use of insulin (4) COPD (chronic obstructive pulmonary disease): CODE(S): J44.9 - Chronic obstructive pulmonary disease, unspecified QUALIFIERS: COPD type: unspecified COPD Qualified Code(s): J44.9 - Chronic obstructive pulmonary disease, unspecified (5) Decubitus ulcer of left buttock, stage 3: CODE(S): L89.323 - Pressure ulcer of left buttock, stage 3 (6) Decubitus ulcer of left thigh, stage 3: CODE(S): L89.223 - Pressure ulcer of left hip, stage 3 (7) Chronic ulcer of left thigh with fat layer exposed: CODE(S): L97.122 - Non-pressure chronic ulcer of left thigh with fat layer exposed PLAN: Plan Debridement performed today in clinic as annotated above. At home wound-care instructions: Will dress ulcers with hydrogel and gauze and change daily. Keep dressing clean and dry. Will continue Snider catheter. Off-loading: The patient was instructed to avoid pressure and friction on the affected areas. Reposition every 2 hours at minimum. Avoid prolonged standing and/or dangling of legs. When seated, feet should be elevated at chest level. Frequent ambulation is encouraged. Diet: Patient encouraged to increase protein intake while taking caution to avoid high carbohydrate and/or sugar intake. Labs/cultures/imaging: Follow-up: Return for wound care follow up in 2 weeks. Return sooner or report to the emergency room should symptoms worsen, or new symptoms arise. Note: [employer] speech recognition handicapper harness racing software was used to create portions of this document. Sound-alike and misspelled words, as well as other handicapper harness racing errors may be contained in the documentation.
== END 2022-10-03 23:59 | disposition home or self-care (01) ==
LOC: WC 10:30
PROVIDERS: PCP Family Medicine; Referring Provider Family Medicine; Visit Provider Family Medicine
DX: E11.622 Type 2 diabetes mellitus with other skin ulcer (principal); L89.223 Pressure ulcer of left hip, stage 3; L89.323 Pressure ulcer of left buttock, stage 3; F25.9 Schizoaffective disorder, unspecified; L97.122 Non-pressure chronic ulcer of left thigh with fat layer exposed; J44.9 Chronic obstructive pulmonary disease, unspecified; F31.9 Bipolar disorder, unspecified; E11.42 Type 2 diabetes mellitus with diabetic polyneuropathy; E66.01 Morbid (severe) obesity due to excess calories; Z79.4 Long term (current) use of insulin; R32 Unspecified urinary incontinence; B00.9 Herpesviral infection, unspecified; B37.49 Other urogenital candidiasis; F17.210 Nicotine dependence, cigarettes, uncomplicated; Z79.01 Long term (current) use of anticoagulants; Z79.02 Long term (current) use of antithrombotics/antiplatelets; Z79.899 Other long term (current) drug therapy
CPT/HCPCS: 11042; 81001; 87077; 87086; 87088; 87186

== ENCOUNTER → 2022-10-17 | Outpatient (CLI) | payer MEDICARE, MEDICAID, SELFPAY ==
--- NOTE | 2022-10-17 09:35 | RAD_ITS ---
PROCEDURE: Fluoroscopic guided left shoulder Injection DATE: October 17, 2022. INDICATION: Female, 57 years old. Chronic left shoulder pain. PHYSICIAN: Manuelito Silva M.D. MEDICATIONS: 12 mg of betamethasone and 4 cc of 1% lidocaine. 2% lidocaine administered subcutaneously for local anesthesia. ACCESS SITE: Left shoulder.. NEEDLE: 22-gauge spinal needle. FLUOROSCOPY TIME (if supplied): (1:24) minutes/seconds. 19.12 mGy. 2 images were submitted. FINDINGS: The risks, benefits, and alternatives to the procedure were explained to the patient. The specific risks of bleeding, infection, and neurovascular injury were detailed and accepted. Witnessed informed consent was obtained. A 22-gauge spinal needle was positioned under radiographic fluoroscopic localization. Approximately 2 cc of Isovue-300 instilled for localization purposes. Medication was then injected. The patient tolerated the procedure well without any immediate complications. RAD/Inj/Asp Pritesh Jt Should/Hip/Knee IMPRESSION: 1. Successful fluoroscopic guided left shoulder injection. Electronically Signed: Manuelito Silva MD at 10:48 EDT ,
[2022-10-17] MEDS: Lidocaine 2% (5ml sdv) 5 ML VIAL.MPF INFILT (09:48)
[2022-10-17] MEDS: Lidocaine 1% (5 ml sdv) 5 ML Vial 4 ML INFILT (09:51)
[2022-10-17] MEDS: Betamethasone/Betamethasone 30 MG/5 ML Vial 12 MG INTRAARTIC (09:51)
== END | disposition home or self-care (01) ==
LOC: RAD 09:23
PROVIDERS: PCP Family Medicine; Referring Provider Specialist; Visit Provider Specialist
DX: M19.012 Primary osteoarthritis, left shoulder (principal); T83.511A Infection and inflammatory reaction due to indwelling urethral catheter, initial encounter; X58.XXXA Exposure to other specified factors, initial encounter
CPT/HCPCS: 20610; 77002; 87077; 87086; 87088; 87186; Q9967; J0702

== ENCOUNTER 2022-10-28 12:39 | Emergency (ER) | payer MEDICARE, MEDICAID, SELFPAY ==
[2022-10-28 12:41] VITALS: BP 147/88; PULSE 86; RESP 18; TEMP 36; O2SAT 98; BMI 37.3
--- NOTE | 2022-10-28 14:33 | RAD_ITS ---
STUDY: X-RAY - LEFT ANKLE REASON FOR EXAM: Female, 57 years old. History of surgery. Medial pain. TECHNIQUE: 3 view(s) of the ankle. COMPARISON: September 26, 2021. FINDINGS: Stable osteopenia, lateral plate and screw fixation with intraosseous cancellus screws and medial malleolar cancellus screws. Interval tibiotalar joint fusion with large cancellus screws. Moderate arthrosis of the subtalar joint Normal soft tissues. RAD/Ankle min 3 Views IMPRESSION: Stable medial malleolar and lateral plate and screw fixation. New tibiotalar fusion with large cancellus screws. No acute finding. Electronically Signed: Bassem Singh MD at 14:45 EDT ,
--- NOTE | 2022-10-28 14:33 | EX.ED.DYSGE1 ---
HPI History of Present Illness Chief Complaint: Complaint Informant: patient Narrative Narrative: 57-year-old female sent for a Snider. She has had 1 on for couple months because she is diverting urine away from decubitus ulcerations in her left buttock, she states that they are continuously slowly doing better. She had a routine Snider changed out today, and the practitioner was unable to get a new catheter in and sent her for that reason. She occasionally sees blood in the catheter but has not seen any today. It has been about 3 hours since the catheter came out and she denies any symptoms of needing to go or abdominal pain right now. As a separate and unrelated issue, she has had a couple different surgeries on her left ankle, the last one was over a year ago and she has been having gradually worsening pain ever since. It is at the medial part of it. She denies any fevers, chills, redness, injury, rashes, or other acute abnormalities with this. Initial surgery was by Dr. Mitchell, she states the last surgery was Dr. Schwartz. [facility] Medical History Anemia Asthma Atherosclerotic heart disease of [place] coronary artery without angina pectoris Benign essential hypertension BiPAP (biphasic positive airway pressure) dependence Bleeding tendency Blood loss anemia CAD (coronary artery disease) Cardiac dysrhythmia Chest pain Chest pain at rest Chronic cough Chronic narcotic use Closed fracture of proximal end of fibula COPD (chronic obstructive pulmonary disease) Current use of insulin Delayed surgical wound healing Diabetes Dislocation of hip, right, closed Emphysema of lung Gastroesophageal reflux disease High cholesterol Hip osteoarthritis History of left heart catheterization (LHC) (~07/05/21) History of pulmonary embolism History of revision of total replacement of right hip joint History of stress test Hypertension Irregular heart beat Irritable bowel Morbid obesity Myocardial infarct Obesity On home oxygen therapy RACHEL (obstructive sleep apnea) Pancreatitis Peptic ulcer Preoperative cardiovascular examination Presence of stent in coronary artery (~02/07/11) Pulmonary hypertension Schizoaffective disorder Schizophrenia Sleep apnea Smoker Spinal stenosis of lumbar region at multiple levels Stage 2 moderate COPD by GOLD classification Suspected COVID-19 virus infection Takotsubo cardiomyopathy Thyroid nodule Tobacco abuse Type 2 diabetes mellitus Ulcer Vitamin D deficiency Home Medications atorvastatin 80 mg tablet 80 mg PO QHS cholesterol 08/22/15 [History Last Taken 08/03/21] pregabalin 75 mg capsule 75 mg PO TID PAIN 03/08/18 [History Last Taken 08/03/21] risperidone 4 mg tablet 4 mg PO QHS sleep 03/08/18 [History Last Taken 08/04/21] trazodone 100 mg tablet 200 mg PO QHS PRN Insomnia 03/08/18 [History Last Taken 08/04/21] buspirone 30 mg tablet 30 mg PO BID anxiety 06/27/19 [History Last Taken 08/03/21] clopidogrel 75 mg tablet 75 mg PO DAILY blood thinner 07/31/20 [History Last Taken 08/03/21] escitalopram oxalate 20 mg tablet 20 mg PO DAILY mental health 11/14/20 [History Last Taken 08/03/21] fluticasone propionate 230 mcg-salmeterol 21 mcg/actuation HFA inhaler (Advair HFA) 2 puff inhalation BID SOB 11/14/20 [History Last Taken 08/05/21] promethazine 25 mg tablet 25 mg PO BID PRN PRN Nausea 11/14/20 [History Last Taken 08/04/21] potassium chloride 20 mEq tablet,extended release (K-Tab) 40 meq PO DAILY potassium replacement 01/13/21 [History Last Taken 08/05/21] albuterol sulfate 2.5 mg/3 mL (0.083 %) solution for nebulization 2.5 mg (3 mL) inhalation Q4H PRN Sob &/Or Wheezing #180 mL 05/25/21 [Rx Last Taken Unknown] pantoprazole 40 mg tablet,delayed release 40 mg PO BID gerd 08/05/21 [History Last Taken 08/03/21] sucralfate 1 gram tablet 1 g PO Q6H stomach 08/05/21 [History Last Taken 08/04/21] fluticasone propionate 50 mcg/actuation nasal spray,suspension 1 spray intranasal BID allergies #16 grams 06/29/22 [Rx Last Taken Unknown] amlodipine 10 mg tablet 10 mg PO DAILY blood pressure 07/22/22 [History Last Taken Unknown] apixaban 5 mg tablet (Eliquis) 5 mg PO BID blood thinner 07/22/22 [History Last Taken Unknown] dicyclomine 20 mg tablet 20 mg PO 4X/DAY Check with primary doctor 07/22/22 [History Last Taken Unknown] ferrous sulfate 325 mg (65 mg iron) tablet 325 mg PO QODAY anemia 07/22/22 [History Last Taken Unknown] glimepiride 2 mg tablet 2 mg PO BID diabetes 07/22/22 [History Last Taken Unknown] insulin glargine 100 unit/mL (3 mL) subcutaneous pen (Lantus Solostar U-100 Insulin) 40 unit subcut BID diabetes 07/22/22 [History Last Taken Unknown] lamotrigine 25 mg tablet 100 mg PO DAILY Check with primary doctor 07/22/22 [History Last Taken Unknown] sucralfate 1 gram tablet (Carafate) 1 g PO 4X/DAY stomach 07/22/22 [History Last Taken Unknown] tiotropium bromide 2.5 mcg/actuation mist for inhalation (Spiriva Respimat) 2 puff inhalation DAILY copd 07/22/22 [History Last Taken Unknown] tizanidine 4 mg capsule 4 mg PO Q8H PRN Muscle Spasm 07/22/22 [History Last Taken Unknown] hydrocodone-acetaminophen 5-325mg 5mg-325mg 1 tab PO Q6H PRN PRN Pain 3 days #10 TABLETS 07/27/22 [Rx Last Taken Unknown] melatonin 10 mg tablet 10 mg PO QHS PRN PRN Insomnia 08/17/22 [History Last Taken Unknown] metoprolol succinate 50 mg tablet,extended release 24 hr 50 mg PO DAILY heart 08/17/22 [History Last Taken Unknown] furosemide 40 mg tablet (Lasix) 40 mg PO DAILY #30 tabs 08/19/22 [Rx Last Taken Unknown] levofloxacin 750 mg tablet 750 mg PO DAILY #5 tabs 08/19/22 [Rx Last Taken Unknown] prednisone 20 mg tablet 40 mg (2 x 20 mg) PO DAILY #10 tabs 08/19/22 [Rx Last Taken Unknown] nystatin 100,000 unit/mL oral suspension 5 ml mucous membrane TID #250 mL 08/22/22 [Rx Last Taken Unknown] montelukast 10 mg tablet 10 mg PO DAILY pain #90 tabs 08/31/22 [Rx Last Taken Unknown] nitrofurantoin monohydrate/macrocrystals 100 mg capsule 100 mg PO Q12 #14 CAPSULES 08/31/22 [Rx Last Taken Unknown] albuterol sulfate 90 mcg/actuation aerosol inhaler 2 puff inhalation Q4H PRN PRN SOB &/or Wheezing #8.5 grams 09/09/22 [Rx Last Taken Unknown] prednisone 50 mg tablet 50 mg PO DAILY #5 tabs 09/14/22 [Rx Last Taken Unknown] Allergy/AdvReac Type Severity Reaction Status Date / Time tramadol [From Ultram] Allergy Severe Blisters, Verified 09/14/22 14:44 itching amoxicillin Allergy Itching Verified 09/14/22 14:44 erythromycin base Allergy Unknown Verified 09/14/22 14:44 methadone Allergy Itching Verified 09/14/22 14:44 metolazone Allergy Unknown Verified 09/14/22 14:44 Penicillins Allergy Hives Verified 07/27/22 13:36 Sulfa (Sulfonamide Allergy Hives Verified 09/14/22 14:44 Antibiotics) clarithromycin [From Biaxin] AdvReac Nausea Verified 09/14/22 14:44 ibuprofen AdvReac 3 BLEEDING Verified 09/14/22 14:44 ULCERS morphine AdvReac HEADACHE Verified 09/14/22 14:44 oxycodone [From Percocet] AdvReac Itching Verified 09/14/22 14:44 Family History Mother Heart disease Cancer uterine Father Hypertension Arthritis Hyperlipemia Grandmother Breast cancer Heart disease Grandfather Heart disease Sister Hypertension Surgical History History of appendectomy History of carpal tunnel surgery of left wrist History of cholecystectomy History of gastric bypass History of gastric bypass History of right ankle surgery history of right hip surgery History of tonsillectomy Presence of coronary angioplasty implant and graft (~02/07/11) Social History household members: none Smoking Status: Current every day smoker tobacco type: cigarettes alcohol intake: never substance use type: does not use caffeine: Yes (occasional) what type of physical activity do you participate in: none ROS ROS ED Constitutional Constitutional ED: Denies chills or fever(s) Genitourinary Genitourinary ED: Reports hematuria; Denies dysuria or urinary frequency Musculoskeletal Musculoskeletal: Reports as per HPI and extremity pain Integumentary Reports as per HPI and wounds; Denies rash EXAM Physical Exam Const Vital Signs: 10/28/22 12:41 Temperature 96.8 F L Temperature Source Temporal Pulse Rate 86 Respiratory Rate 18 Blood Pressure 147/88 H Blood Pressure Mean 107 Pulse Ox 98 Oxygen Delivery Method Room Air Positive well developed General Appearance ED: well developed and NAD Neck supple Neck Narrative: F ROM Resp normal respiratory effort GI normal to inspection, nondistended, normoactive bowel sounds, non-tender and non-distended Back/Spine no CVA tenderness Extremity Extremity Narrative: Limited range of motion left ankle due to history of fusion. Well-healed surgical incisions both medially and laterally, she is tender along the medial 1 which is otherwise benign appearing without any erythema, signs of dehiscence or infection. No overlying skin erythema or abscess. No tenderness elsewhere in the ankle, no excessive warmth. Neuro oriented x3, CN's II-XII intact bilaterally and no sensory deficits noted Sensorium / Orientation: alert Psych mental status grossly normal Skin no rashes or lesions noted and skin turgor normal MDM MDM MDM Narrative Medical decision making narrative: Three-view x-ray series of the left ankle were obtained, on my interpretation there are multiple orthopedic screws intact, there are at least 2 of them in the area where she is having pain under the surgical incision at the medial malleolus. I see no other acute abnormalities, radiology interpretation was evaluated as well. With regards to this I think she can safely follow-up with her conduit helper or orthopedic surgeon, and have an evaluation for possible hardware removal if it is bothering her that much. With regards to the Snider, a new one was placed and she was stable for discharge with it and a leg bag. Radiography Diagnostic Testing: Clinical Impression(s) from Imaging Studies Ankle X-Ray 10/28/22 14:33 IMPRESSION: Stable medial malleolar and lateral plate and screw fixation. New tibiotalar fusion with large cancellus screws. No acute finding. Electronically Signed: Bassem Singh MD at 14:45 EDT , Discharge Plan Triage Chief Complaint: Complaint ED Provider: Rodrigo Delvalle Dx/Rx/DC Orders Clinical Impression: Difficult Snider catheter placement, Chronic pain of left ankle Instructions: Having Ankle Fusion, ED Snider Catheter, Care Prescriptions: No Action albuterol sulfate 2.5 mg /3 mL (0.083 %) solution for nebulization 2.5 mg inhalation Q4H PRN (Reason: Sob &/Or Wheezing) Qty: 180 3RF fluticasone propionate 50 mcg/actuation spray,suspension 1 spray INTRANASAL BID Qty: 16 11RF atorvastatin 80 MG tablet 80 mg PO QHS Patient Comments: cholesterol risperidone 4 mg tablet 4 mg PO QHS Patient Comments: Take 1 tablet by mouth at bedtime trazodone 100 MG tablet 200 mg PO QHS PRN (Reason: Insomnia) pregabalin 75 MG capsule 75 mg PO TID buspirone 30 mg tablet 30 mg PO BID clopidogrel 75 mg tablet 75 mg PO DAILY promethazine 25 mg Tablet 25 mg PO BID PRN PRN (Reason: Nausea) escitalopram oxalate 20 mg Tablet 20 mg PO DAILY fluticasone propion-salmeterol [Advair HFA] 230-21 mcg/actuation Hfa Aerosol Inhaler 2 puff INHALATION BID potassium chloride [K-Tab] 20 mEq tablet extended release 40 meq PO DAILY sucralfate 1 gram tablet 1 g PO Q6H pantoprazole 40 mg tablet,delayed release (DR/EC) 40 mg PO BID sucralfate [Carafate] 1 gram Tablet 1 g PO 4X/DAY amlodipine 10 mg Tablet 10 mg PO DAILY dicyclomine 20 mg Tablet 20 mg PO 4X/DAY Eliquis 5 mg Tablet 5 mg PO BID glimepiride 2 mg Tablet 2 mg PO BID ferrous sulfate 325 mg (65 mg iron) Tablet 325 mg PO QODAY tizanidine 4 mg Capsule 4 mg PO Q8H PRN (Reason: Muscle Spasm) Spiriva Respimat 2.5 mcg/actuation Mist 2 puff INHALATION DAILY insulin glargine [Lantus Solostar U-100 Insulin] 100 unit/mL (3 mL) Insulin Pen 40 unit SUBCUT BID lamotrigine 25 mg Tablet 100 mg PO DAILY hydrocodone-acetaminophen 5-325 mg tablet 1 tab PO Q6H PRN PRN (Reason: Pain) 3 Days Qty: 10 0RF metoprolol succinate 50 mg Tablet Extended Release 24 Hr 50 mg PO DAILY melatonin 10 mg Tablet 10 mg PO QHS PRN PRN (Reason: Insomnia) prednisone 20 mg tablet 40 mg PO DAILY Qty: 10 0RF levofloxacin 750 mg tablet 750 mg PO DAILY Qty: 5 0RF furosemide [Lasix] 40 mg tablet 40 mg PO DAILY Qty: 30 1RF nitrofurantoin monohyd/m-cryst [nitrofurantoin monohyd/m-cryst] 100 mg capsule 100 mg PO Q12 Qty: 14 0RF prednisone 50 mg tablet 50 mg PO DAILY Qty: 5 0RF nystatin 100,000 unit/mL suspension 5 ml mucous membrane TID Qty: 250 1RF Rx Instructions: swish and swallow 5 cc three times per day for 10 days montelukast 10 mg tablet 10 mg PO DAILY Qty: 90 3RF albuterol sulfate 90 mcg/actuation HFA aerosol inhaler 2 puff inhalation Q4H PRN PRN (Reason: SOB &/or Wheezing ) Qty: 8.5 11RF Primary Care Provider: Janel Taylor Referrals: Janel Taylor MD [Primary Care Provider] - As Needed (Also follow-up with either Dr. Mitchell or Lana regarding your possible painful hardware in your L ankle.) Disposition Disposition: Home, Self Care
== END 2022-10-28 15:43 | disposition home or self-care (01) ==
PROVIDERS: Emergency Provider Emergency Medicine; PCP Family Medicine; Visit Provider Emergency Medicine
DX: Z46.6 Encounter for fitting and adjustment of urinary device (principal); J43.9 Emphysema, unspecified; E11.9 Type 2 diabetes mellitus without complications; Z79.4 Long term (current) use of insulin; I25.10 Atherosclerotic heart disease of native coronary artery without angina pectoris; I10 Essential (primary) hypertension; E78.00 Pure hypercholesterolemia, unspecified; M25.572 Pain in left ankle and joints of left foot; G89.29 Other chronic pain; J45.909 Unspecified asthma, uncomplicated; Z99.81 Dependence on supplemental oxygen; I25.2 Old myocardial infarction; G47.33 Obstructive sleep apnea (adult) (pediatric); F17.210 Nicotine dependence, cigarettes, uncomplicated
CPT/HCPCS: 73610; 99282

== ENCOUNTER 2022-10-31 14:15 | Outpatient (RCR) | payer MEDICARE, MEDICAID, SELFPAY ==
[2022-10-04 00:37] VITALS: BP 150/76; PULSE 74; RESP 18; TEMP 36.1; O2SAT 97; BMI 38.0
[2022-10-07 10:42] VITALS: BP 114/72; PULSE 76; RESP 16; TEMP 35.9; BMI 38.0
--- NOTE | 2022-10-07 13:39 | PN.PCM_ITS ---
History of Present Illness Date of Service: 10/07/22 Chief Complaint: nonhealing ulcers of left medial thigh, perineum History of Wound: Crystal is a 56-year-old patient with history of diabetic neuropathy, bipolar, schizoaffective disorder, depression, hypertension, cardiac disease, obesity, excessive tobacco use that presents to the wound center today for treatment and evaluation of ulcers of her left medial thigh and perineum that have been present for approx. 3 months. Patient has known problems healing and has been seen at the wound center for previous non-healing wounds of her lower extremities. She continues to smoke and is smoking approximately 2 packs/day. She does not know the cause of the ulcers of her left thigh and perineum but thinks it may have been from an abrasion from sliding to get out of a chair. She has tried treatment with Nystatin powder, Nystatin cream and Calmoseptine but they have not improved. Dr. Taylor performed a punch biopsy on 06/24/22 and this did not show any sign of malignancy and showed changes associated with a chronic wound and no evidence of fungal infection. She has been unable to keep this area covered due to dressings not staying in place. She does have DM and this is controlled, most recent A1C was 6.8% on 11/26/21. 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 This recurred after treatment with antiviral a few weeks prior. The area is very painful per patient and the ulcer of the perineum drains moderate to heavy and the thigh drains light to moderate. She is incontinent of urine. She denies fever, chills, increased erythema, odor. Subjective Subjective Crystal returns today for evaluation and treatment of ulcers of her left groin area. She has been having a hard time with the dressings. They are still not staying in place. She has a catheter and is tolerating this well. She finished Augmentin. Denies fever or chills. Pain is severe. She continues Acyclovir. She has yeast infection in groin area that is greatly improved after fluconazole treatment. Objective Data Objective Data Vital Signs: Vital Signs Temp Pulse Resp BP Pulse Ox 96.6 F L 76 16 114/72 97 10/07/22 10:42 10/07/22 10:42 10/07/22 10:42 10/07/22 10:42 10/04/22 00:37 Weight: 97.522 kg Body Mass Index (BMI) 38.0 Physical Exam Const alert, oriented x3 and no apparent distress General Appearance: cooperative and comfortable HEENT normocephalic and head/scalp atraumatic Resp normal respiratory effort Effort and Inspection: able to speak in complete sentences Cardio regular rate and regular rhythm Skin Skin Narrative: right groin with vesicular rash Wounds: wounds noted Wound Narrative: as in clinical panel Psych mental status grossly normal, thought process normal, cooperative and affect normal Debridement Note Debridement Note Wound debrided: Left medial posterior thigh Laterality: Left Wound Grade/Stage: Stage 3 Type of Debridement: Excisional debridement Anesthesia Used: 4% Lidocaine Solution, 5% Lidocaine Gel and Cetacaine Depth: Down to and including healthy tissue and in the subcutaneous layer Percentage of wound debrided: 100 Instrument Used: 7mm curette Tissue Removed: Yellow slough, devitalized tissue Severity: Fat Layer Exposed Amount of bleeding with debridement: Mild Bleeding Controlled with: Compression and gauze Patient tolerated procedure: Patient tolerated procedure well Post-Debridement Measurements and Additional Note: Post-Debridement Measurements/Treatment - Nurse 1 - General Ulcer Assessment Start: 10/07/22 10:40 Freq: Status: Active Protocol: [email or web address].[email or web address] Activity Type Activity Date Activity User E-sign Co-sign Detail Recorded Client Recorded Date Recorded By Document 10/07/22 10:42 LACIE [id number] 10/07/22 10:51 LACIE 10/07/22 10:42 - Today's Visit Information Type of service Follow-up Visit (Physician/[employer] ) Arrival Mode Ambulatory, Walker Patient Identification Verified (Name & Yes ) Patient Requires Transmission-Based No Precautions Height and Weight Body Mass Index (BMI) 38.0 BMI Classification Obese Vital Signs Temperature (97.8 F-99.1 F) 96.6 F L Temperature Source Temporal Pulse Rate (60-100) 76 Pulse Location Monitor Respiratory Rate (12-18) 16 Respiratory rate source Observation Blood Pressure (90/60-120/80) 114/72 Blood Pressure Mean (mm Hg) 86 Source Monitor Position Semi-Fowlers Blood Pressure Location Right Arm History Since Last Visit- (Skip if this is Patient's initial visit) Have you changed medications since your No last visit? Had a fall/change in ADL's that may No increase risk of falls Signs or symptoms of abuse and/or No neglect since last visit Have you been in the hospital since your No last visit? Has dressing in place as prescribed Yes Has compression in place as prescribed N/A Has offloadiing in place as prescribed Yes Experienced any changes in pain level or No management Left Footwear Regular Shoe Right Footwear Regular Shoe Pain Scale: 0-10 Numeric Is Patient Pain Free? Yes WC - Nurse 1 - General Ulcer Measurement Start: 10/07/22 10:40 Freq: Status: Active Protocol: Activity Type Activity Date Activity User E-sign Co-sign Detail Recorded Client Recorded Date Recorded By Document 10/07/22 10:42 LACIE [id number] 10/07/22 10:51 LACIE 10/07/22 10:42 Wound Center Nurse 1 12. R labia -Combined with other wound No -Current Size (cm) - Length 2.0 -Current Size (cm) - Width 1.4 -Current Size (cm) - Depth 0.2 -Total Square Cm 2.80 -Photo Taken Yes #11- Left MED POST THIGH -Combined with other wound No -Current Size (cm) - Length 1.9 -Current Size (cm) - Width 1.5 -Current Size (cm) - Depth 0.4 -Total Square Cm 2.85 -Photo Taken Yes -Epithelialization None Present -Tunneling No -Undermining/Tunneling No -Circular Undermining No -Exudate Amt Medium -Exudate Type Serosanguineous -Wound Margin Flat & Intact -Granulation Amt Large (67-100%) -Granulation Quality Red -Slough/Fibrin Yes -Necrosis Amt Small (1-33%) -Necrotic Tissue Type Adherent Slough -Structure Exposed N/A -Texture (Adriane-wound Skin Appearance) Assessed -Moisture (Adriane-wound Skin Appearance) Assessed,Dry/ Scaly -Color (Adriane-wound Skin Appearance) Assessed -Temperature (Adriane-wound Skin No Abnormality Appearance) (Pt Warm) -Tenderness on Palpation (Adriane-wound No Skin Appearance) -Ulcer Cleansing Wound Cleanser -Foul Odor after Cleansing No -Anesthetic Used 5% Lidocaine Gel #10- L BUTTOCK -Combined with other wound No -Current Size (cm) - Length 2.0 -Current Size (cm) - Width 1.4 -Current Size (cm) - Depth 0.2 -Total Square Cm 2.80 -Photo Taken Yes -Epithelialization None Present -Tunneling No -Undermining/Tunneling No -Circular Undermining No -Exudate Amt Medium -Exudate Type Serosanguineous -Wound Margin Flat & Intact -Granulation Amt Large (67-100%) -Slough/Fibrin Yes -Necrosis Amt Small (1-33%) -Necrotic Tissue Type Adherent Slough -Structure Exposed N/A -Texture (Adriane-wound Skin Appearance) Assessed -Moisture (Adriane-wound Skin Appearance) Assessed,Dry/ Scaly -Color (Adriane-wound Skin Appearance) Assessed -Temperature (Adriane-wound Skin No Abnormality Appearance) (Pt Warm) -Tenderness on Palpation (Adriane-wound No Skin Appearance) -Ulcer Cleansing Wound Cleanser -Foul Odor after Cleansing No -Anesthetic Used 5% Lidocaine Gel Lower Limb Edema Present NA WC - Nurse 2 - General Ulcer CM Notes Start: 10/07/22 10:40 Freq: Status: Active Protocol: Activity Type Activity Date Activity User E-sign Co-sign Detail Recorded Client Recorded Date Recorded By Document 10/07/22 11:25 MW [id number] 10/07/22 11:31 MW 10/07/22 11:25 Wound Center Nurse 2 12. R labia -Time 11:27 -Correct Patient Yes -Correct Side, Site, Position Yes -Correct Procedure Yes -Procedure Performed Yes -Type of Procedure Debridement -Clinical Debridement Subcutaneous -Tissue Removed Subcutaneous -Post Debridement (cm) - Length 0.6 -Post Debridement (cm) - Width 0.7 -Post Debridement (cm) - Depth 0.1 -Total Square (Post) (cm) 0.42 -Area of Debridement (cm) - Length 0.6 -Area of Debridement (cm) - Width 0.7 -Total Square (Area) (cm) 0.42 -Tunneling No -Undermining/Tunneling No -Circular Undermining No -Wound/Ulcer Outcome Not Healed -Ulcer Cleansing Rinsed/ Irrigated with Saline -Foul Odor after Cleansing No -Bioengineered Tissue No -Bleeding Controlled with Pressure -Treatment Response Procedure Tolerated Well -Offloading No -Debridement - Subq, 1st 20sq cm No #11- Left MED POST THIGH -Time 11:25 -Correct Patient Yes -Correct Side, Site, Position Yes -Correct Procedure Yes -Procedure Performed Yes -Type of Procedure Debridement -Clinical Debridement Subcutaneous -Tissue Removed Subcutaneous -Post Debridement (cm) - Length 2.0 -Post Debridement (cm) - Width 1.5 -Post Debridement (cm) - Depth 0.3 -Total Square (Post) (cm) 3.00 -Area of Debridement (cm) - Length 2.0 -Area of Debridement (cm) - Width 1.5 -Total Square (Area) (cm) 3.00 -Tunneling No -Undermining/Tunneling No -Circular Undermining No -Wound/Ulcer Outcome Not Healed -Ulcer Cleansing Rinsed/ Irrigated with Saline -Foul Odor after Cleansing No -Bioengineered Tissue No -Bleeding Controlled with Pressure -Treatment Response Procedure Tolerated Well -Offloading No -Debridement - Subq, 1st 20sq cm Yes #10- L BUTTOCK -Time 11:26 -Correct Patient Yes -Correct Side, Site, Position Yes -Correct Procedure Yes -Procedure Performed Yes -Type of Procedure Debridement -Clinical Debridement Subcutaneous -Tissue Removed Subcutaneous -Post Debridement (cm) - Length 1.0 -Post Debridement (cm) - Width 2.5 -Post Debridement (cm) - Depth 0.1 -Total Square (Post) (cm) 2.50 -Area of Debridement (cm) - Length 1.0 -Area of Debridement (cm) - Width 2.5 -Total Square (Area) (cm) 2.50 -Tunneling No -Undermining/Tunneling No -Circular Undermining No -Wound/Ulcer Outcome Not Healed -Ulcer Cleansing Rinsed/ Irrigated with Saline -Foul Odor after Cleansing No -Bioengineered Tissue No -Bleeding Controlled with Pressure -Treatment Response Procedure Tolerated Well -Offloading No -Debridement - Subq, 1st 20sq cm No Pain Scale: 0-10 Numeric Is Patient Pain Free? Yes WC - Nurse 3 - General Ulcer D/C NN Start: 10/07/22 10:40 Freq: Status: Active Protocol: Activity Type Activity Date Activity User E-sign Co-sign Detail Recorded Client Recorded Date Recorded By Document 10/07/22 11:47 RB [id number] 10/07/22 11:49 RB 10/07/22 11:47 Wound Care Center Nurse 3 12. R labia -Other Dressing silvadene cream -Primary Dressing Covered/Secured with Dry Gauze, Secured with Tape #11- Left MED POST THIGH -Ulcer Cleansing Rinsed/ Irrigated with Saline -Primary Dressing Applied Promogran -Other Dressing silvadene cream -Primary Dressing Covered/Secured with Dry Gauze, Secured with Tape -Promogran 1 #10- L BUTTOCK -Ulcer Cleansing Rinsed/ Irrigated with Saline -Other Dressing silvadene cream , promogran -Primary Dressing Covered/Secured with Dry Gauze, Secured with Tape Treatment Response Procedure Tolerated Well Pain Scale: 0-10 Numeric Is Patient Pain Free? Yes WC - Visit Discharge Discharge Condition Stable Ambulatory Status Ambulatory, Walker Transportation Private Auto Medication Reconcilliation completed & No provided to patient/care provider Clinical Summary of Care Provided Yes Additional Wound Wound debrided: left buttock Laterality: Left Wound Grade/Stage: Stage 3 Type of Debridement: Excisional debridement Anesthesia Used: 4% Lidocaine Solution, 5% Lidocaine Gel and Cetacaine Depth: Down to and including healthy tissue and in the subcutaneous layer Percentage of wound debrided: 100 Instrument Used: 7mm curette Tissue Removed: Yellow slough, devitalized tissue Severity: Fat Layer Exposed Amount of bleeding with debridement: Mild Bleeding Controlled with: Compression and gauze Patient tolerated procedure: Patient tolerated procedure well Additional Wound Wound debrided: right labia Laterality: Right Wound Grade/Stage: Stage 2 Type of Debridement: Excisional debridement Anesthesia Used: 4% Lidocaine Solution, 5% Lidocaine Gel and Cetacaine Depth: Down to and including healthy tissue and in the subcutaneous layer Percentage of wound debrided: 100 Instrument Used: 5mm curette Tissue Removed: yellow slough, devitalized tissue Severity: Fat Layer Exposed Amount of bleeding with debridement: Mild Bleeding Controlled with: Compression and gauze Patient tolerated procedure: Patient tolerated procedure well Assessment/Plan Assessment/Plan (1) Morbid obesity due to excess calories: CODE(S): E66.01 - Morbid (severe) obesity due to excess calories (2) Type 2 diabetes mellitus: CODE(S): E11.9 - Type 2 diabetes mellitus without complications QUALIFIERS: Diabetes mellitus complication status: with neurologic complications Diabetes mellitus complication detail: with polyneuropathy Diabetes mellitus longterm insulin use: with termite exterminator helper use Qualified Code(s): E11.42 - Type 2 diabetes mellitus with diabetic polyneuropathy; Z79.4 - superintendent container terminal (current) use of insulin (3) Type 2 diabetes mellitus with diabetic polyneuropathy: CODE(S): E11.42 - Type 2 diabetes mellitus with diabetic polyneuropathy QUALIFIERS: Diabetes mellitus longterm insulin use: with longterm use Qualified Code(s): E11.42 - Type 2 diabetes mellitus with diabetic polyneuropathy; Z79.4 - superintendent container terminal (current) use of insulin (4) COPD (chronic obstructive pulmonary disease): CODE(S): J44.9 - Chronic obstructive pulmonary disease, unspecified QUALIFIERS: COPD type: unspecified COPD Qualified Code(s): J44.9 - Chronic obstructive pulmonary disease, unspecified (5) Decubitus ulcer of left buttock, stage 3: CODE(S): L89.323 - Pressure ulcer of left buttock, stage 3 (6) Decubitus ulcer of left thigh, stage 3: CODE(S): L89.223 - Pressure ulcer of left hip, stage 3 (7) Chronic ulcer of left thigh with fat layer exposed: CODE(S): L97.122 - Non-pressure chronic ulcer of left thigh with fat layer exposed PLAN: Plan Debridement performed today in clinic as annotated above. At home wound-care instructions: Will dress ulcers promogran and cover with silvadene and cover with gauze and change daily and as needed. Keep dressing clean and dry. Will continue Snider catheter. Off-loading: The patient was instructed to avoid pressure and friction on the affected areas. Reposition every 2 hours at minimum. Avoid prolonged standing and/or dangling of legs. When seated, feet should be elevated at chest level. Frequent ambulation is encouraged. Diet: Patient encouraged to increase protein intake while taking caution to avoid high carbohydrate and/or sugar intake. Labs/cultures/imaging: Follow-up: Return for wound care follow up in 2 weeks. Return sooner or report to the emergency room should symptoms worsen, or new symptoms arise. Note: [employer] speech recognition welt sewer software was used to create portio ns of this document. Sound-alike and misspelled words, as well as other welt sewer errors may be contained in the documentation.
[2022-10-21 10:45] VITALS: BP 91/53; PULSE 70; RESP 16; TEMP 35.7; BMI 38.0
--- NOTE | 2022-10-21 14:23 | PCM.WC.PN ---
History of Present Illness Date of Service: 10/21/22 Chief Complaint: nonhealing ulcers of left medial thigh, perineum History of Wound: Crystal is a 56-year-old patient with history of diabetic neuropathy, bipolar, schizoaffective disorder, depression, hypertension, cardiac disease, obesity, excessive tobacco use that presents to the wound center today for treatment and evaluation of ulcers of her left medial thigh and perineum that have been present for approx. 3 months. Patient has known problems healing and has been seen at the wound center for previous non-healing wounds of her lower extremities. She continues to smoke and is smoking approximately 2 packs/day. She does not know the cause of the ulcers of her left thigh and perineum but thinks it may have been from an abrasion from sliding to get out of a chair. She has tried treatment with Nystatin powder, Nystatin cream and Calmoseptine but they have not improved. Dr. Taylor performed a punch biopsy on 06/24/22 and this did not show any sign of malignancy and showed changes associated with a chronic wound and no evidence of fungal infection. She has been unable to keep this area covered due to dressings not staying in place. She does have DM and this is controlled, most recent A1C was 6.8% on 11/26/21. 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 This recurred after treatment with antiviral a few weeks prior. The area is very painful per patient and the ulcer of the perineum drains moderate to heavy and the thigh drains light to moderate. She is incontinent of urine. She denies fever, chills, increased erythema, odor. Subjective Subjective Crystal returns today for evaluation and treatment of ulcers of her left groin area. She has been having a hard time with the dressings. They are still not staying in place wel. She has a catheter and is tolerating this well. She finished Augmentin. Denies fever or chills. Pain is severe. She continues Acyclovir. She has yeast infection in groin area that is greatly improved after fluconazole treatment. She is requesting change to Valacyclovir for HSV prophylaxis. Has been applying foam dressing and tape over to secure. Objective Data Objective Data Vital Signs: Vital Signs Temp Pulse Resp BP Pulse Ox O2 Del Method 96.2 F L 70 16 91/53 L 97 Room Air 10/21/22 10:45 10/21/22 10:45 10/21/22 10:45 10/21/22 10:45 10/04/22 00:37 10/21/22 10:45 Oxygen Delivery Method Room Air Weight: 97.522 kg Body Mass Index (BMI) 38.0 Physical Exam Const alert, oriented x3 and no apparent distress General Appearance: cooperative and comfortable HEENT normocephalic and head/scalp atraumatic Resp normal respiratory effort Effort and Inspection: able to speak in complete sentences Cardio regular rate and regular rhythm Skin Skin Narrative: right groin with vesicular rash Wounds: wounds noted Wound Narrative: as in clinical panel Psych mental status grossly normal, thought process normal, cooperative and affect normal Debridement Note Debridement Note Wound debrided: Left medial posterior thigh Laterality: Left Wound Grade/Stage: Stage 3 Type of Debridement: Excisional debridement Anesthesia Used: 4% Lidocaine Solution, 5% Lidocaine Gel and Cetacaine Depth: Down to and including healthy tissue and in the subcutaneous layer Percentage of wound debrided: 100 Instrument Used: 7mm curette Tissue Removed: Yellow slough, devitalized tissue Severity: Fat Layer Exposed Amount of bleeding with debridement: Mild Bleeding Controlled with: Compression and gauze Patient tolerated procedure: Patient tolerated procedure well Post-Debridement Measurements and Additional Note: Post-Debridement Measurements/Treatment - Nurse 1 - General Ulcer Assessment Start: 10/07/22 10:40 Freq: Status: Active Protocol: .KATRINA Activity Type Activity Date Activity User E-sign Co-sign Detail Recorded Client Recorded Date Recorded By Document 10/07/22 10:42 [id number] 10/07/22 10:51 Document 10/21/22 10:45 [id number] 10/21/22 10:54 10/07/22 10/21/22 10:42 10:45 - Today's Visit Information Type of service Follow-up Visit Follow-up Visit (Physician/HEALTH DIAGNOSTICS TEACHER (Physician/HEALTH DIAGNOSTICS TEACHER ) ) Arrival Mode Ambulatory, Ambulatory, Walker Walker Patient Identification Verified (Name & Yes Yes ) Patient Requires Transmission-Based No Precautions Finger Stick Blood Sugar(mg/dl) (if 129 indicated): Blood Sugar Stated by Patient Height and Weight Body Mass Index (BMI) 38.0 38.0 BMI Classification Obese Obese Vital Signs Temperature (97.8 F-99.1 F) 96.6 F L 96.2 F L Temperature Source Temporal Temporal Pulse Rate (60-100) 76 70 Pulse Location Monitor Monitor Respiratory Rate (12-18) 16 16 Respiratory rate source Observation Observation Oxygen Delivery Method Room Air Blood Pressure (90/60-120/80) 114/72 91/53 L Blood Pressure Mean (mm Hg) 86 65 Source Monitor Monitor Position Semi-Fowlers Sitting Blood Pressure Location Right Arm Right Arm History Since Last Visit- (Skip if this is Patient's initial visit) Have you changed medications since your No No last visit? Any new allergies or adverse reactions No Had a fall/change in ADL's that may No No increase risk of falls Signs or symptoms of abuse and/or No No neglect since last visit Have you been in the hospital since your No No last visit? Has dressing in place as prescribed Yes Yes Has compression in place as prescribed N/A N/A Has offloadiing in place as prescribed Yes N/A Experienced any changes in pain level or No No management Left Footwear Regular Shoe Regular Shoe Right Footwear Regular Shoe Regular Shoe Pain Scale: 0-10 Numeric Is Patient Pain Free? Yes Yes - Nurse 1 - General Ulcer Measurement Start: 10/07/22 10:40 Freq: Status: Active Protocol: Activity Type Activity Date Activity User E-sign Co-sign Detail Recorded Client Recorded Date Recorded By Document 10/07/22 10:42 [id number] 10/07/22 10:51 Document 10/21/22 10:45 [id number] 10/21/22 10:54 10/07/22 10/21/22 10:42 10:45 Wound Center Nurse 1 12. R labia -Combined with other wound No -Current Size (cm) - Length 2.0 0.1 -Current Size (cm) - Width 1.4 0.1 -Current Size (cm) - Depth 0.2 0.1 -Total Square Cm 2.80 0.01 -Photo Taken Yes -Exudate Amt Small -Exudate Type Serosanguineous -Wound Margin Distinct, Outline Attached -Granulation Amt Small (1-33%) -Granulation Quality [place] -Necrosis Amt Small (1-33%) -Necrotic Tissue Type Adherent Slough -Texture (Adriane-wound Skin Appearance) Assessed -Moisture (Adriane-wound Skin Appearance) Assessed -Color (Adriane-wound Skin Appearance) Assessed -Ulcer Cleansing Soap and Water -Anesthetic Used 5% Lidocaine Gel #11- Left MED POST THIGH -Combined with other wound No -Current Size (cm) - Length 1.9 2.3 -Current Size (cm) - Width 1.5 1.7 -Current Size (cm) - Depth 0.4 0.3 -Total Square Cm 2.85 3.91 -Photo Taken Yes -Epithelialization None Present -Tunneling No -Undermining/Tunneling No -Circular Undermining No -Exudate Amt Medium Medium -Exudate Type Serosanguineous Serosanguineous -Wound Margin Flat & Intact Distinct, Outline Attached -Granulation Amt Large (67-100%) Medium (34-66%) -Granulation Quality Red Red -Slough/Fibrin Yes -Necrosis Amt Small (1-33%) Small (1-33%) -Necrotic Tissue Type Adherent Slough Adherent Slough -Structure Exposed N/A -Texture (Adriane-wound Skin Appearance) Assessed Assessed -Moisture (Adriane-wound Skin Appearance) Assessed,Dry/ Assessed Scaly -Color (Adriane-wound Skin Appearance) Assessed Assessed -Temperature (Adriane-wound Skin No Abnormality No Abnormality Appearance) (Pt Warm) (Pt Warm) -Tenderness on Palpation (Adriane-wound No Skin Appearance) -Ulcer Cleansing Wound Cleanser Soap and Water -Foul Odor after Cleansing No -Anesthetic Used 5% Lidocaine 5% Lidocaine Gel Gel #10- L BUTTOCK -Combined with other wound No -Current Size (cm) - Length 2.0 1.5 -Current Size (cm) - Width 1.4 2.4 -Current Size (cm) - Depth 0.2 0.2 -Total Square Cm 2.80 3.60 -Photo Taken Yes -Epithelialization None Present -Tunneling No -Undermining/Tunneling No -Circular Undermining No -Exudate Amt Medium -Exudate Type Serosanguineous Serosanguineous -Wound Margin Flat & Intact Distinct, Outline Attached -Granulation Amt Large (67-100%) Large (67-100%) -Granulation Quality Red -Slough/Fibrin Yes -Necrosis Amt Small (1-33%) Small (1-33%) -Necrotic Tissue Type Adherent Slough Adherent Slough -Structure Exposed N/A -Texture (Adriane-wound Skin Appearance) Assessed Assessed -Moisture (Adriane-wound Skin Appearance) Assessed,Dry/ Assessed Scaly -Color (Adriane-wound Skin Appearance) Assessed Assessed -Temperature (Adriane-wound Skin No Abnormality No Abnormality Appearance) (Pt Warm) (Pt Warm) -Tenderness on Palpation (Adriane-wound No Skin Appearance) -Ulcer Cleansing Wound Cleanser Soap and Water -Foul Odor after Cleansing No -Anesthetic Used 5% Lidocaine 5% Lidocaine Gel Gel Lower Limb Edema Present NA NA WC - Nurse 2 - General Ulcer CM Notes Start: 10/07/22 10:40 Freq: Status: Active Protocol: Activity Type Activity Date Activity User E-sign Co-sign Detail Recorded Client Recorded Date Recorded By Document 10/07/22 11:25 MW [id number] 10/07/22 11:31 MW Document 10/21/22 11:20 MW Desktop 10/21/22 11:28 MW 10/07/22 10/21/22 11:25 11:20 Wound Center Nurse 2 12. R labia -Time 11:27 11:20 -Correct Patient Yes Yes -Correct Side, Site, Position Yes Yes -Correct Procedure Yes Yes -Procedure Performed Yes No -Type of Procedure Debridement -Clinical Debridement Subcutaneous -Tissue Removed Subcutaneous -Post Debridement (cm) - Length 0.6 0 -Post Debridement (cm) - Width 0.7 0 -Post Debridement (cm) - Depth 0.1 0 -Total Square (Post) (cm) 0.42 0 -Area of Debridement (cm) - Length 0.6 -Area of Debridement (cm) - Width 0.7 -Total Square (Area) (cm) 0.42 -Tunneling No No -Undermining/Tunneling No No -Circular Undermining No No -Wound/Ulcer Outcome Not Healed Healed- Epithelialized -Ulcer Cleansing Rinsed/ Irrigated with Saline -Foul Odor after Cleansing No -Bioengineered Tissue No -Bleeding Controlled with Pressure -Treatment Response Procedure Tolerated Well -Offloading No -Debridement - Subq, 1st 20sq cm No #11- Left MED POST THIGH -Time 11:25 11:20 -Correct Patient Yes Yes -Correct Side, Site, Position Yes Yes -Correct Procedure Yes Yes -Procedure Performed Yes Yes -Type of Procedure Debridement Debridement -Clinical Debridement Subcutaneous Subcutaneous -Tissue Removed Subcutaneous Subcutaneous -Post Debridement (cm) - Length 2.0 1.5 -Post Debridement (cm) - Width 1.5 1.8 -Post Debridement (cm) - Depth 0.3 0.2 -Total Square (Post) (cm) 3.00 2.70 -Area of Debridement (cm) - Length 2.0 1.5 -Area of Debridement (cm) - Width 1.5 1.8 -Total Square (Area) (cm) 3.00 2.70 -Tunneling No No -Undermining/Tunneling No No -Circular Undermining No No -Wound/Ulcer Outcome Not Healed Not Healed -Ulcer Cleansing Rinsed/ Rinsed/ Irrigated with Irrigated with Saline Saline -Foul Odor after Cleansing No No -Bioengineered Tissue No No -Bleeding Controlled with Pressure Pressure -Treatment Response Procedure Procedure Tolerated Well Tolerated Well -Offloading No No -Debridement - Subq, 1st 20sq cm Yes Yes #10- L BUTTOCK -Time 11:26 11:20 -Correct Patient Yes Yes -Correct Side, Site, Position Yes Yes -Correct Procedure Yes Yes -Procedure Performed Yes Yes -Type of Procedure Debridement Debridement -Clinical Debridement Subcutaneous Subcutaneous -Tissue Removed Subcutaneous Subcutaneous -Post Debridement (cm) - Length 1.0 1.0 -Post Debridement (cm) - Width 2.5 2.5 -Post Debridement (cm) - Depth 0.1 0.1 -Total Square (Post) (cm) 2.50 2.50 -Area of Debridement (cm) - Length 1.0 1.0 -Area of Debridement (cm) - Width 2.5 2.5 -Total Square (Area) (cm) 2.50 2.50 -Tunneling No No -Undermining/Tunneling No No -Circular Undermining No No -Wound/Ulcer Outcome Not Healed Not Healed -Ulcer Cleansing Rinsed/ Rinsed/ Irrigated with Irrigated with Saline Saline -Foul Odor after Cleansing No No -Bioengineered Tissue No No -Bleeding Controlled with Pressure Pressure -Treatment Response Procedure Procedure Tolerated Well Tolerated Well -Offloading No No -Debridement - Subq, 1st 20sq cm No No Pain Scale: 0-10 Numeric Is Patient Pain Free? Yes Yes WC - Nurse 3 - General Ulcer D/C NN Start: 10/07/22 10:40 Freq: Status: Active Protocol: Activity Type Activity Date Activity User E-sign Co-sign Detail Recorded Client Recorded Date Recorded By Document 10/07/22 11:47 RB [id number] 10/07/22 11:49 RB Document 10/21/22 11:45 RB [id number] 10/21/22 11:47 RB 10/07/22 10/21/22 11:47 11:45 Wound Care Center Nurse 3 12. R labia -Other Dressing silvadene cream -Primary Dressing Covered/Secured with Dry Gauze, Secured with Tape #11- Left MED POST THIGH -Ulcer Cleansing Rinsed/ Rinsed/ Irrigated with Irrigated with Saline Saline -Primary Dressing Applied Promogran Mepilex Border, Promogran -Other Dressing silvadene cream silvadene -Primary Dressing Covered/Secured with Dry Gauze, Secured with Tape -Mepilex Border 1 -Promogran 1 1 #10- L BUTTOCK -Ulcer Cleansing Rinsed/ Rinsed/ Irrigated with Irrigated with Saline Saline -Primary Dressing Applied Mepilex Border -Other Dressing silvadene cream promogran and , promogran silvadene -Primary Dressing Covered/Secured with Dry Gauze, Secured with Tape -Mepilex Border 1 Treatment Response Procedure Procedure Tolerated Well Tolerated Well Pain Scale: 0-10 Numeric Is Patient Pain Free? Yes Yes WC - Visit Discharge Discharge Condition Stable Stable Ambulatory Status Ambulatory, Ambulatory, Walker Walker Transportation Private Auto Private Auto Medication Reconcilliation completed & No No provided to patient/care provider Clinical Summary of Care Provided Yes Yes Additional Wound Wound debrided: left buttock Laterality: Left Wound Grade/Stage: Stage 3 Type of Debridement: Excisional debridement Anesthesia Used: 4% Lidocaine Solution, 5% Lidocaine Gel and Cetacaine Depth: Down to and including healthy tissue and in the subcutaneous layer Percentage of wound debrided: 100 Instrument Used: 7mm curette Tissue Removed: Yellow slough, devitalized tissue Severity: Fat Layer Exposed Amount of bleeding with debridement: Mild Bleeding Controlled with: Compression and gauze Patient tolerated procedure: Patient tolerated procedure well Additional Wound Tissue Removed: yellow slough, devitalized tissue Assessment/Plan Assessment/Plan (1) Morbid obesity due to excess calories: CODE(S): E66.01 - Morbid (severe) obesity due to excess calories (2) Type 2 diabetes mellitus: CODE(S): E11.9 - Type 2 diabetes mellitus without complications QUALIFIERS: Diabetes mellitus complication status: with neurologic complications Diabetes mellitus complication detail: with polyneuropathy Diabetes mellitus [facility] insulin use: with [facility] use Qualified Code(s): E11.42 - Type 2 diabetes mellitus with diabetic polyneuropathy; Z79.4 - bed bug exterminator (current) use of insulin (3) Type 2 diabetes mellitus with diabetic polyneuropathy: CODE(S): E11.42 - Type 2 diabetes mellitus with diabetic polyneuropathy QUALIFIERS: Diabetes mellitus buttermaker insulin use: with buttermaker use Qualified Code(s): E11.42 - Type 2 diabetes mellitus with diabetic polyneuropathy; Z79.4 - assisted (current) use of insulin (4) COPD (chronic obstructive pulmonary disease): CODE(S): J44.9 - Chronic obstructive pulmonary disease, unspecified QUALIFIERS: COPD type: unspecified COPD Qualified Code(s): J44.9 - Chronic obstructive pulmonary disease, unspecified (5) Decubitus ulcer of left buttock, stage 3: CODE(S): L89.323 - Pressure ulcer of left buttock, stage 3 (6) Decubitus ulcer of left thigh, stage 3: CODE(S): L89.223 - Pressure ulcer of left hip, stage 3 (7) Chronic ulcer of left thigh with fat layer exposed: CODE(S): L97.122 - Non-pressure chronic ulcer of left thigh with fat layer exposed PLAN: Plan Debridement performed today in clinic as annotated above. At home wound-care instructions: Will continue to dress ulcers with promogran and cover with silvadene and cover with silicone dressing and change daily and as needed. Right labia is healed. Keep dressing clean and dry. Will continue Snider catheter. Off-loading: The patient was instructed to avoid pressure and friction on the affected areas. Reposition every 2 hours at minimum. Avoid prolonged standing and/or dangling of legs. When seated, feet should be elevated at chest level. Frequent ambulation is encouraged. Diet: Patient encouraged to increase protein intake while taking caution to avoid high carbohydrate and/or sugar intake. Labs/cultures/imaging: Follow-up: Return for wound care follow up in 1 week. Return sooner or report to the emergency room should symptoms worsen, or new symptoms arise. Note: [employer] speech recognition estimator paperboard boxes software was used to create portions of this document. Sound-alike and misspelled words, as well as other estimator paperboard boxes errors may be contained in the documentation.
--- NOTE | 2022-10-24 13:15 | WC ---
Patient called in asking if she is to take both anti-viral's or just the Valtrex that was ordered Monday from Dr Null. Notified Dr Null via phone and she states she is just to take the Valtrex as ordered. Called and spoke to patient and she verbalized understanding.
[2022-10-31 14:32] VITALS: BP 119/87; PULSE 87; RESP 20; TEMP 36.6; BMI 38.0
--- NOTE | 2022-10-31 16:18 | PCM.WC.HP ---
History of Present Illness Date of Service: 10/31/22 Chief Complaint: WOUND CENTER CONSULT Referring Physician - Christina Null DO Car Sales Consultant - Ryan Toledo MD REASON FOR CONSULT Nonhealing ulcer left posteromedial thigh and nonhealing ulcer left ischial area. History of Wound: Crystal is a 56-year-old patient with history of diabetic neuropathy, bipolar, schizoaffective disorder, depression, hypertension, cardiac disease, obesity, excessive tobacco use that presents to the wound center today for treatment and evaluation of ulcers of her left medial thigh and perineum that have been present for approx. 3 months. Patient has known problems healing and has been seen at the wound center for previous non-healing wounds of her lower extremities. She continues to smoke and is smoking approximately 2 packs/day. She does not know the cause of the ulcers of her left thigh and perineum but thinks it may have been from an abrasion from sliding to get out of a chair. She has tried treatment with Nystatin powder, Nystatin cream and Calmoseptine but they have not improved. Dr. Taylor performed a punch biopsy on 06/24/22 and this did not show any sign of malignancy and showed changes associated with a chronic wound and no evidence of fungal infection. She has been unable to keep this area covered due to dressings not staying in place. She does have DM and this is controlled, most recent A1C was 6.8% on 11/26/21. 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 This recurred after treatment with antiviral a few weeks prior. The area is very painful per patient and the ulcer of the perineum drains moderate to heavy and the thigh drains light to moderate. She is incontinent of urine. She denies fever, chills, increased erythema, odor. Progress of Wound: Unchanged. [facility] Medical History Anemia Asthma Atherosclerotic heart disease of [place] coronary artery without angina pectoris Bacterial infection due to Proteus mirabilis Bacterial UTI Benign essential hypertension BiPAP (biphasic positive airway pressure) dependence Bleeding tendency Blood loss anemia CAD (coronary artery disease) Cardiac dysrhythmia Chest pain Chest pain at rest Chronic cough Chronic narcotic use Chronic ulcer of left thigh with fat layer exposed Closed fracture of proximal end of fibula COPD (chronic obstructive pulmonary disease) Current use of insulin Delayed surgical wound healing Diabetes Dislocation of hip, right, closed Emphysema of lung Gastroesophageal reflux disease High cholesterol Hip osteoarthritis History of left heart catheterization (LHC) (~07/05/21) History of pulmonary embolism History of revision of total replacement of right hip joint History of stress test Hx methicillin resistant staph Hypertension Irregular heart beat Irritable bowel Morbid obesity Myocardial infarct Obesity On home oxygen therapy RACHEL (obstructive sleep apnea) Pancreatitis Peptic ulcer Preoperative cardiovascular examination Presence of stent in coronary artery (~02/07/11) Pressure sore of left ischium, stage 3 Pulmonary hypertension Schizoaffective disorder Schizophrenia Sleep apnea Smoker Spinal stenosis of lumbar region at multiple levels Stage 2 moderate COPD by GOLD classification Suspected COVID-19 virus infection Takotsubo cardiomyopathy Thyroid nodule Tobacco abuse Type 2 diabetes mellitus Ulcer Urinary incontinence without sensory awareness Vitamin D deficiency Home Medications atorvastatin 80 mg tablet 80 mg PO QHS cholesterol 08/22/15 [History Last Taken 08/03/21] pregabalin 75 mg capsule 75 mg PO TID PAIN 03/08/18 [History Last Taken 08/03/21] risperidone 4 mg tablet 4 mg PO QHS sleep 03/08/18 [History Last Taken 08/04/21] trazodone 100 mg tablet 200 mg PO QHS PRN Insomnia 03/08/18 [History Last Taken 08/04/21] buspirone 30 mg tablet 30 mg PO BID anxiety 06/27/19 [History Last Taken 08/03/21] clopidogrel 75 mg tablet 75 mg PO DAILY blood thinner 07/31/20 [History Last Taken 08/03/21] escitalopram oxalate 20 mg tablet 20 mg PO DAILY mental health 11/14/20 [History Last Taken 08/03/21] fluticasone propionate 230 mcg-salmeterol 21 mcg/actuation HFA inhaler (Advair HFA) 2 puff inhalation BID SOB 11/14/20 [History Last Taken 08/05/21] promethazine 25 mg tablet 25 mg PO BID PRN PRN Nausea 11/14/20 [History Last Taken 08/04/21] potassium chloride 20 mEq tablet,extended release (K-Tab) 40 meq PO DAILY potassium replacement 01/13/21 [History Last Taken 08/05/21] albuterol sulfate 2.5 mg/3 mL (0.083 %) solution for nebulization 2.5 mg (3 mL) inhalation Q4H PRN Sob &/Or Wheezing #180 mL 05/25/21 [Rx Last Taken Unknown] pantoprazole 40 mg tablet,delayed release 40 mg PO BID gerd 08/05/21 [History Last Taken 08/03/21] sucralfate 1 gram tablet 1 g PO Q6H stomach 08/05/21 [History Last Taken 08/04/21] fluticasone propionate 50 mcg/actuation nasal spray,suspension 1 spray intranasal BID allergies #16 grams 06/29/22 [Rx Last Taken Unknown] amlodipine 10 mg tablet 10 mg PO DAILY blood pressure 07/22/22 [History Last Taken Unknown] apixaban 5 mg tablet (Eliquis) 5 mg PO BID blood thinner 07/22/22 [History Last Taken Unknown] dicyclomine 20 mg tablet 20 mg PO 4X/DAY Check with primary doctor 07/22/22 [History Last Taken Unknown] ferrous sulfate 325 mg (65 mg iron) tablet 325 mg PO QODAY anemia 07/22/22 [History Last Taken Unknown] glimepiride 2 mg tablet 2 mg PO BID diabetes 07/22/22 [History Last Taken Unknown] insulin glargine 100 unit/mL (3 mL) subcutaneous pen (Lantus Solostar U-100 Insulin) 40 unit subcut BID diabetes 07/22/22 [History Last Taken Unknown] lamotrigine 25 mg tablet 100 mg PO DAILY Check with primary doctor 07/22/22 [History Last Taken Unknown] sucralfate 1 gram tablet (Carafate) 1 g PO 4X/DAY stomach 07/22/22 [History Last Taken Unknown] tiotropium bromide 2.5 mcg/actuation mist for inhalation (Spiriva Respimat) 2 puff inhalation DAILY copd 07/22/22 [History Last Taken Unknown] tizanidine 4 mg capsule 4 mg PO Q8H PRN Muscle Spasm 07/22/22 [History Last Taken Unknown] hydrocodone-acetaminophen 5-325mg 5mg-325mg 1 tab PO Q6H PRN PRN Pain 3 days #10 TABLETS 07/27/22 [Rx Last Taken Unknown] melatonin 10 mg tablet 10 mg PO QHS PRN PRN Insomnia 08/17/22 [History Last Taken Unknown] metoprolol succinate 50 mg tablet,extended release 24 hr 50 mg PO DAILY heart 08/17/22 [History Last Taken Unknown] furosemide 40 mg tablet (Lasix) 40 mg PO DAILY #30 tabs 08/19/22 [Rx Last Taken Unknown] levofloxacin 750 mg tablet 750 mg PO DAILY #5 tabs 08/19/22 [Rx Last Taken Unknown] prednisone 20 mg tablet 40 mg (2 x 20 mg) PO DAILY #10 tabs 08/19/22 [Rx Last Taken Unknown] nystatin 100,000 unit/mL oral suspension 5 ml mucous membrane TID #250 mL 08/22/22 [Rx Last Taken Unknown] montelukast 10 mg tablet 10 mg PO DAILY pain #90 tabs 08/31/22 [Rx Last Taken Unknown] nitrofurantoin monohydrate/macrocrystals 100 mg capsule 100 mg PO Q12 #14 CAPSULES 08/31/22 [Rx Last Taken Unknown] albuterol sulfate 90 mcg/actuation aerosol inhaler 2 puff inhalation Q4H PRN PRN SOB &/or Wheezing #8.5 grams 09/09/22 [Rx Last Taken Unknown] prednisone 50 mg tablet 50 mg PO DAILY #5 tabs 09/14/22 [Rx Last Taken Unknown] hydrocodone-acetaminophen 5-325mg 5mg-325mg 1 tab PO Q4H PRN PRN Pain 2 days #10 TABLETS 11/15/22 [Rx Last Taken Unknown] Allergy/AdvReac Type Severity Reaction Status Date / Time tramadol [From Ultram] Allergy Severe Blisters, Verified 11/15/22 08:12 itching amoxicillin Allergy Itching Verified 11/15/22 08:12 erythromycin base Allergy Unknown Verified 11/15/22 08:12 methadone Allergy Itching Verified 11/15/22 08:12 metolazone Allergy Unknown Verified 11/15/22 08:12 Penicillins Allergy Hives Verified 11/15/22 08:12 Sulfa (Sulfonamide Allergy Hives Verified 11/15/22 08:12 Antibiotics) clarithromycin [From Biaxin] AdvReac Nausea Verified 11/15/22 08:12 ibuprofen AdvReac 3 BLEEDING Verified 11/15/22 08:12 ULCERS morphine AdvReac HEADACHE Verified 11/15/22 08:12 oxycodone [From Percocet] AdvReac Itching Verified 11/15/22 08:12 Family History Mother Heart disease Cancer uterine Father Hypertension Arthritis Hyperlipemia Grandmother Breast cancer Heart disease Grandfather Heart disease Sister Hypertension Surgical History History of appendectomy History of carpal tunnel surgery of left wrist History of cholecystectomy History of gastric bypass History of gastric bypass History of right ankle surgery history of right hip surgery History of tonsillectomy Presence of coronary angioplasty implant and graft (~02/07/11) Social History household members: none Smoking Status: Current every day smoker tobacco type: cigarettes alcohol intake: never substance use type: does not use caffeine: Yes (occasional) what type of physical activity do you participate in: none ROS ROS Narrative REVIEW OF SYSTEMS General - Denies fever and weight loss. Has fatigue. History of MRSA. Eyes - Has cataracts. Denies glaucoma. ENT - Denies nasal congestion and sore throat. Endocrine - Denies excessive thirst and urination. Has diabetes mellitus. Skin - Denies suspicious lesions and skin cancer. Has nonhealing ulcers left posteromedial thigh and left ischial area. Musculoskeletal - Denies joint pain, joint stiffness, weakness of muscles and joints, back pain. Has arthritis. Neuro - Denies headaches. Cardiovascular - Denies chest pain, and shortness of breath with exertion. Has fatigue. Has PAD. Psych - Has anxiety and depression. Respiratory - Has chronic cough and shortness of breath. Has asthma. Has RACHEL. Patient is a smoker. Gastrointestinal - Denies nausea, vomiting, diarrhea, and constipation. Hematologic - Denies abnormal bruising and bleeding. Genitourinary - Denies hematuria and urinary frequency. Has incontinence. Has UTI. Vital Signs Vital Signs Vital Signs: 10/31/22 14:32 Temperature 97.8 F Temperature Source Temporal Pulse Rate 87 Respiratory Rate 20 H Blood Pressure 119/87 H Blood Pressure Mean 97 Weight Weight: 215 lb Body Mass Index (BMI) 38.0 Physical Exam Narrative PHYSICAL EXAMINATION General - Alert and Oriented HEENT - PERRL. EOMI. Throat is clear. Neck - Supple and nontender. No cervical adenopathy. Lungs - Clear to auscultation. Heart - Regular rate and rhythm. Abdomen - Soft and nondistended. Extremities - FROM. No axillary adenopathy. Radial pulses are palpable. In the left posteromedial thigh is a nonhealing ulcer that measures 1.8 x 1.4 cm. Granulation tissue is present. No redness, fluctuance, or purulent drainage. Buttock - In the left ischial area is a nonhealing pressure ulcer that measures 1.8 x 1.2 cm. Granulation tissue is present. No redness, fluctuance, or purulent drainage. Neuro - CN II-XII grossly intact. Psych - Normal mood and affect. Debridement Note Debridement Note Wound debrided: #11 Left medial posterior thigh Laterality: Left Wound Grade/Stage: Stage 3 Type of Debridement: Excisional debridement Anesthesia Used: 4% Lidocaine Solution and 5% Lidocaine Gel Depth: Down to and including healthy tissue and in the subcutaneous layer Percentage of wound debrided: 100 Instrument Used: 7mm curette Tissue Removed: subcutaneous tissue, yellow slough, devitalized tissue Severity: Fat Layer Exposed Amount of bleeding with debridement: Mild Bleeding Controlled with: Pressure and Compression and gauze Patient tolerated procedure: Patient tolerated procedure well Post-Debridement Measurements and Additional Note: Post-Debridement Measurements/Treatment - Nurse 1 - General Ulcer Assessment Start: 10/07/22 10:40 Freq: Status: Active Protocol: LISY Activity Type Activity Date Activity User E-sign Co-sign Detail Recorded Client Recorded Date Recorded By Document 10/07/22 10:42 [id number] 10/07/22 10:51 Document 10/21/22 10:45 KW [id number] 10/21/22 10:54 KW Document 10/31/22 14:32 PL [id number] 10/31/22 14:34 PL 10/07/22 10/21/22 10/31/22 10:42 10:45 14:32 - Today's Visit Information Type of service Follow-up Visit Follow-up Visit Follow-up Visit (Physician/BATCH ANALYST (Physician/BATCH ANALYST (Physician/BATCH ANALYST ) ) ) Arrival Mode Ambulatory, Ambulatory, Ambulatory, Walker Walker Walker Transfer Assistance None Patient Identification Verified (Name & Yes Yes Yes ) Patient Requires Transmission-Based No No Precautions Finger Stick Blood Sugar(mg/dl) (if 129 indicated): Blood Sugar Stated by Patient Height and Weight Body Mass Index (BMI) 38.0 38.0 38.0 BMI Classification Obese Obese Obese Vital Signs Temperature (97.8 F-99.1 F) 96.6 F L 96.2 F L 97.8 F Temperature Source Temporal Temporal Temporal Pulse Rate (60-100) 76 70 87 Pulse Location Monitor Monitor Respiratory Rate (12-18) 16 16 20 H Respiratory rate source Observation Observation Oxygen Delivery Method Room Air Blood Pressure (90/60-120/80) 114/72 91/53 L 119/87 H Blood Pressure Mean 86 65 97 Source Monitor Monitor Position Semi-Fowlers Sitting Blood Pressure Location Right Arm Right Arm History Since Last Visit- (Skip if this is Patient's initial visit) Have you changed medications since your No No No last visit? Any new allergies or adverse reactions No No Had a fall/change in ADL's that may No No No increase risk of falls Signs or symptoms of abuse and/or No No No neglect since last visit Have you been in the hospital since your No No No last visit? Has dressing in place as prescribed Yes Yes Yes Has compression in place as prescribed N/A N/A N/A Has offloadiing in place as prescribed Yes N/A N/A Experienced any changes in pain level or No No No management Left Footwear Regular Shoe Regular Shoe Right Footwear Regular Shoe Regular Shoe Pain Scale: 0-10 Numeric Is Patient Pain Free? Yes Yes Yes WC - Nurse 1 - General Ulcer Measurement Start: 10/07/22 10:40 Freq: Status: Active Protocol: Activity Type Activity Date Activity User E-sign Co-sign Detail Recorded Client Recorded Date Recorded By Document 10/07/22 10:42 [id number] 10/07/22 10:51 Document 10/21/22 10:45 KW [id number] 10/21/22 10:54 KW Document 10/31/22 14:36 PL [id number] 10/31/22 14:38 PL 10/07/22 10/21/22 10/31/22 10:42 10:45 14:36 Wound Center Nurse 1 12. R labia -Combined with other wound No -Current Size (cm) - Length 2.0 0.1 -Current Size (cm) - Width 1.4 0.1 -Current Size (cm) - Depth 0.2 0.1 -Total Square Cm 2.80 0.01 -Photo Taken Yes -Exudate Amt Small -Exudate Type Serosanguineous -Wound Margin Distinct, Outline Attached -Granulation Amt Small (1-33%) -Granulation Quality [place] -Necrosis Amt Small (1-33%) -Necrotic Tissue Type Adherent Slough -Texture (Adriane-wound Skin Appearance) Assessed -Moisture (Adriane-wound Skin Appearance) Assessed -Color (Adriane-wound Skin Appearance) Assessed -Ulcer Cleansing Soap and Water -Anesthetic Used 5% Lidocaine Gel #11- Left MED POST THIGH -Combined with other wound No -Current Size (cm) - Length 1.9 2.3 1.7 -Current Size (cm) - Width 1.5 1.7 1.4 -Current Size (cm) - Depth 0.4 0.3 0.3 -Total Square Cm 2.85 3.91 2.38 -Photo Taken Yes -Epithelialization None Present Medium 34-66% -Tunneling No -Undermining/Tunneling No -Circular Undermining No -Exudate Amt Medium Medium -Exudate Type Serosanguineous Serosanguineous -Wound Margin Flat & Intact Distinct, Outline Attached -Granulation Amt Large (67-100%) Medium (34-66%) -Granulation Quality Red Red -Slough/Fibrin Yes -Necrosis Amt Small (1-33%) Small (1-33%) -Necrotic Tissue Type Adherent Slough Adherent Slough -Structure Exposed N/A -Texture (Adriane-wound Skin Appearance) Assessed Assessed -Moisture (Adriane-wound Skin Appearance) Assessed,Dry/ Assessed Scaly -Color (Adriane-wound Skin Appearance) Assessed Assessed -Temperature (Adriane-wound Skin No Abnormality No Abnormality Appearance) (Pt Warm) (Pt Warm) -Tenderness on Palpation (Adriane-wound No Skin Appearance) -Ulcer Cleansing Wound Cleanser Soap and Water -Foul Odor after Cleansing No -Anesthetic Used 5% Lidocaine 5% Lidocaine Gel Gel #10- L BUTTOCK -Combined with other wound No -Current Size (cm) - Length 2.0 1.5 1.8 -Current Size (cm) - Width 1.4 2.4 1.1 -Current Size (cm) - Depth 0.2 0.2 0.1 -Total Square Cm 2.80 3.60 1.98 -Photo Taken Yes -Epithelialization None Present -Tunneling No -Undermining/Tunneling No -Circular Undermining No -Exudate Amt Medium -Exudate Type Serosanguineous Serosanguineous -Wound Margin Flat & Intact Distinct, Outline Attached -Granulation Amt Large (67-100%) Large (67-100%) -Granulation Quality Red -Slough/Fibrin Yes -Necrosis Amt Small (1-33%) Small (1-33%) -Necrotic Tissue Type Adherent Slough Adherent Slough -Structure Exposed N/A -Texture (Adriane-wound Skin Appearance) Assessed Assessed -Moisture (Adriane-wound Skin Appearance) Assessed,Dry/ Assessed Scaly -Color (Adriane-wound Skin Appearance) Assessed Assessed -Temperature (Adriane-wound Skin No Abnormality No Abnormality Appearance) (Pt Warm) (Pt Warm) -Tenderness on Palpation (Adriane-wound No Skin Appearance) -Ulcer Cleansing Wound Cleanser Soap and Water -Foul Odor after Cleansing No -Anesthetic Used 5% Lidocaine 5% Lidocaine Gel Gel Lower Limb Edema Present NA NA WC - Nurse 2 - General Ulcer CM Notes Start: 10/07/22 10:40 Freq: Status: Active Protocol: Activity Type Activity Date Activity User E-sign Co-sign Detail Recorded Client Recorded Date Recorded By Document 10/07/22 11:25 MW [id number] 10/07/22 11:31 MW Document 10/21/22 11:20 MW Desktop 10/21/22 11:28 MW Document 10/31/22 14:59 [id number] 10/31/22 15:02 10/07/22 10/21/22 10/31/22 11:25 11:20 14:59 Wound Center Nurse 2 12. R labia -Time 11:27 11:20 -Correct Patient Yes Yes -Correct Side, Site, Position Yes Yes -Correct Procedure Yes Yes -Procedure Performed Yes No -Type of Procedure Debridement -Clinical Debridement Subcutaneous -Tissue Removed Subcutaneous -Post Debridement (cm) - Length 0.6 0 -Post Debridement (cm) - Width 0.7 0 -Post Debridement (cm) - Depth 0.1 0 -Total Square (Post) (cm) 0.42 0 -Area of Debridement (cm) - Length 0.6 -Area of Debridement (cm) - Width 0.7 -Total Square (Area) (cm) 0.42 -Tunneling No No -Undermining/Tunneling No No -Circular Undermining No No -Wound/Ulcer Outcome Not Healed Healed- Epithelialized -Ulcer Cleansing Rinsed/ Irrigated with Saline -Foul Odor after Cleansing No -Bioengineered Tissue No -Bleeding Controlled with Pressure -Treatment Response Procedure Tolerated Well -Offloading No -Debridement - Subq, 1st 20sq cm No #11- Left MED POST THIGH -Time 11: 11: 15:00 -Correct Patient Yes Yes Yes -Correct Side, Site, Position Yes Yes Yes -Correct Procedure Yes Yes Yes -Procedure Performed Yes Yes Yes -Type of Procedure Debridement Debridement Debridement -Clinical Debridement Subcutaneous Subcutaneous Subcutaneous -Tissue Removed Subcutaneous Subcutaneous Subcutaneous -Post Debridement (cm) - Length 2.0 1.5 1.8 -Post Debridement (cm) - Width 1.5 1.8 1.4 -Post Debridement (cm) - Depth 0.3 0.2 0.3 -Total Square (Post) (cm) 3.00 2.70 2.52 -Area of Debridement (cm) - Length 2.0 1.5 1.8 -Area of Debridement (cm) - Width 1.5 1.8 1.4 -Total Square (Area) (cm) 3.00 2.70 2.52 -Tunneling No No No -Undermining/Tunneling No No No -Circular Undermining No No No -Wound/Ulcer Outcome Not Healed Not Healed Not Healed -Ulcer Cleansing Rinsed/ Rinsed/ Rinsed/ Irrigated with Irrigated with Irrigated with Saline Saline Saline -Foul Odor after Cleansing No No No -Bioengineered Tissue No No No -Bleeding Controlled with Pressure Pressure Pressure -Treatment Response Procedure Procedure Procedure Tolerated Well Tolerated Well Tolerated Well -Offloading No No No -Debridement - Subq, 1st 20sq cm Yes Yes Yes #10- L BUTTOCK -Time 11: 11: 15:00 -Correct Patient Yes Yes Yes -Correct Side, Site, Position Yes Yes Yes -Correct Procedure Yes Yes Yes -Procedure Performed Yes Yes Yes -Type of Procedure Debridement Debridement Debridement -Clinical Debridement Subcutaneous Subcutaneous Subcutaneous -Tissue Removed Subcutaneous Subcutaneous Subcutaneous -Post Debridement (cm) - Length 1.0 1.0 1.8 -Post Debridement (cm) - Width 2.5 2.5 1.2 -Post Debridement (cm) - Depth 0.1 0.1 0.1 -Total Square (Post) (cm) 2.50 2.50 2.16 -Area of Debridement (cm) - Length 1.0 1.0 1.8 -Area of Debridement (cm) - Width 2.5 2.5 1.2 -Total Square (Area) (cm) 2.50 2.50 2.16 -Tunneling No No No -Undermining/Tunneling No No No -Circular Undermining No No No -Wound/Ulcer Outcome Not Healed Not Healed Not Healed -Ulcer Cleansing Rinsed/ Rinsed/ Rinsed/ Irrigated with Irrigated with Irrigated with Saline Saline Saline -Foul Odor after Cleansing No No No -Bioengineered Tissue No No No -Bleeding Controlled with Pressure Pressure Pressure -Treatment Response Procedure Procedure Procedure Tolerated Well Tolerated Well Tolerated Well -Offloading No No No -Debridement - Subq, 1st 20sq cm No No No Pain Scale: 0-10 Numeric Is Patient Pain Free? Yes Yes Yes WC - Nurse 3 - General Ulcer D/C NN Start: 10/07/22 10:40 Freq: Status: Active Protocol: Activity Type Activity Date Activity User E-sign Co-sign Detail Recorded Client Recorded Date Recorded By Document 10/07/22 11:47 RB [id number] 10/07/22 11:49 RB Document 10/21/22 11:45 RB [id number] 10/21/22 11:47 RB Document 10/31/22 15:19 [facility] [id number] 10/31/22 15:19 BMF 10/07/22 10/21/22 10/31/22 11:47 11:45 15:19 Wound Care Center Nurse 3 12. R labia -Other Dressing silvadene cream -Primary Dressing Covered/Secured with Dry Gauze, Secured with Tape #11- Left MED POST THIGH -Ulcer Cleansing Rinsed/ Rinsed/ Rinsed/ Irrigated with Irrigated with Irrigated with Saline Saline Saline -Foul Odor after Cleansing No -Primary Dressing Applied Promogran Mepilex Border, Aquacel AG 4x4 Promogran -Other Dressing silvadene cream silvadene -Primary Dressing Covered/Secured with Dry Gauze, Dry Gauze, Secured with Secured with Tape Tape -Aquacel AG 4x4 1 -Mepilex Border 1 -Promogran 1 1 #10- L BUTTOCK -Ulcer Cleansing Rinsed/ Rinsed/ Rinsed/ Irrigated with Irrigated with Irrigated with Saline Saline Saline -Foul Odor after Cleansing No -Primary Dressing Applied Mepilex Border Aquacel AG 4x4 -Other Dressing silvadene cream promogran and , promogran silvadene -Primary Dressing Covered/Secured with Dry Gauze, Dry Gauze, Secured with Secured with Tape Tape -Aquacel AG 4x4 0 -Mepilex Border 1 Treatment Response Procedure Procedure Procedure Tolerated Well Tolerated Well Tolerated Well Pain Scale: 0-10 Numeric Is Patient Pain Free? Yes Yes Yes WC - Visit Discharge Discharge Condition Stable Stable Stable Ambulatory Status Ambulatory, Ambulatory, Ambulatory, Walker Walker Walker Transportation Private Auto Private Auto Medication Reconcilliation completed & No No provided to patient/care provider Clinical Summary of Care Provided Yes Yes Facility Type Home Health Additional Wound Wound debrided: #10 Left ischial area Laterality: Left Wound Grade/Stage: Stage 3 Type of Debridement: Excisional debridement Anesthesia Used: 4% Lidocaine Solution and 5% Lidocaine Gel Depth: Down to and including healthy tissue and in the subcutaneous layer Percentage of wound debrided: 100 Instrument Used: 7mm curette Tissue Removed: subcutaneous tissue, yellow slough, devitalized tissue Severity: Fat Layer Exposed Amount of bleeding with debridement: Mild Bleeding Controlled with: Pressure and Compression and gauze Patient tolerated procedure: Patient tolerated procedure well Additional Wound Tissue Removed: yellow slough, devitalized tissue Medical Records Data Attestation: I reviewed the patient's medical records Lab / Micro Data Attestation: I reviewed the patient's lab results. Charges/Coding Visit Charges Office Visits / Consults: [id number] OV L4 New (Modifier 25 ICD-10 -L97.122, L89.323, N39.42, N39.0, A49.8, Z86.14, E11.9, F17.200, E66.01) Procedures Integumentary [id number]: [id number] [place] subq tissue 20 sq cm/< (ICD-10 -L97.122, L89.323, N39.42, N39.0, A49.8, Z86.14, E11.9, F17.200, E66.01) Assessment/Plan Assessment/Plan (1) Chronic ulcer of left thigh with fat layer exposed: CODE(S): L97.122 - Non-pressure chronic ulcer of left thigh with fat layer exposed (2) Pressure sore of left ischium, stage 3: CODE(S): L89.323 - Pressure ulcer of left buttock, stage 3 (3) Urinary incontinence without sensory awareness: CODE(S): N39.42 - Incontinence without sensory awareness (4) Bacterial UTI: CODE(S): N39.0 - Urinary tract infection, site not specified; A49.9 - Bacterial infection, unspecified (5) Bacterial infection due to Proteus mirabilis: CODE(S): A49.8 - Other bacterial infections of unspecified site (6) Hx methicillin resistant staph: CODE(S): Z86.14 - Personal history of Methicillin resistant Staphylococcus aureus infection (7) Diabetes: CODE(S): E11.9 - Type 2 diabetes mellitus without complications (8) Smoker: CODE(S): F17.200 - Nicotine dependence, unspecified, uncomplicated (9) Morbid obesity due to excess calories: CODE(S): E66.01 - Morbid (severe) obesity due to excess calories PLAN: Plan Medical records reviewed. Begin Silver dressing changes to the nonhealing ulcers. Patient has nonhealing infected diabetic ulcers involving her left posteromedial thigh and left ischial area. Patient has urinary incontinence and some residual urine gets on the wounds which is affecting the healing of these ulcers. The incontinence will need to be addressed before proceeding with surgical preparation left posteromedial thigh and left ischial areas with incision and drainage and excisional debridement nonhealing infected diabetic ulcers. The ulcers are small enough and if there is enough tissue present for a local skin flap, then I would proceed with that. If there are logistical issues with trying to close these nonhealing infected diabetic ulcers, then I would leave the wounds open and proceed with wound care after the surgery with either the VAC at 150 mmHg continuous suction or daily Dakin's or Silver dressing changes. Once the healing wounds become more superficial, then will consider wound closure with skin grafting. A skin graft is considered elective. For elective surgeries, the HgbA1c needs to be less than 8. Surgery will be under general anesthesia with a surgical observation over night stay in the hospital. Will send tissue to Pathology for analysis to rule out carcinoma as well as tissue to Microbiology for culture. A positive culture will necessitate antibiotic therapy. Patient was informed of the risks and complications of the procedure including alternatives to surgery. These were discussed with the patient personally. Patient voices understanding and wishes to proceed. Potential risks and complications included but not inclusive of bleeding, infection, seroma, hematoma, bruising, swelling, prolonged need for drains, loss of sensation to skin, partial or complete loss of skin flap and/or skin graft, wound breakdown, need for wound care, poor scarring, poor aesthetic outcome, intra operative cardiac or neurologic events, DVT, PE, and reaction to anesthesia. Encouraged patient to stop smoking as it may have deleterious effects on wound healing. Will have Dr. Edwards, who specializes in female Urology, evaluate her urinary incontinence which may be due to laxity of the pelvic floor to see if she is a candidate for a pelvic floor sling. Anticipate increased metabolic demands from these diabetic infections. Encourage nutritional supplementation with protein to help the healing process. Will check a Prealbumin at the time of surgery. Would like to try and maximize her protein supplementation to help promote healing. She had a positive urine culture on 09/16/22 which showed Proteus mirabilis and on 10/17/22 which showed Klebsiella oxytoca. She was treated with Augmentin. She had a wound culture on 07/22/22 which showed Methicillin resistant Staphylococcus haemolyticus. She was treated with Doxycycline. Follow-up: She will [facility] a weekly basis to continue to manage these wounds until her surgery.
== END 2022-11-03 23:59 | disposition home or self-care (01) ==
LOC: WC 14:15
PROVIDERS: PCP Family Medicine; Referring Provider Family Medicine; Visit Provider Family Medicine
DX: L89.323 Pressure ulcer of left buttock, stage 3 (principal); L89.223 Pressure ulcer of left hip, stage 3; E11.622 Type 2 diabetes mellitus with other skin ulcer; F25.0 Schizoaffective disorder, bipolar type; L97.122 Non-pressure chronic ulcer of left thigh with fat layer exposed; J43.9 Emphysema, unspecified; F31.9 Bipolar disorder, unspecified; E11.42 Type 2 diabetes mellitus with diabetic polyneuropathy; E66.01 Morbid (severe) obesity due to excess calories; Z79.4 Long term (current) use of insulin; B00.9 Herpesviral infection, unspecified; Z68.38 Body mass index [BMI] 38.0-38.9, adult; I25.10 Atherosclerotic heart disease of native coronary artery without angina pectoris; B37.9 Candidiasis, unspecified; E78.00 Pure hypercholesterolemia, unspecified; F17.200 Nicotine dependence, unspecified, uncomplicated; Z79.01 Long term (current) use of anticoagulants; Z79.02 Long term (current) use of antithrombotics/antiplatelets; Z79.82 Long term (current) use of aspirin; Z79.51 Long term (current) use of inhaled steroids; Z79.899 Other long term (current) drug therapy
CPT/HCPCS: 11042

== ENCOUNTER 2022-11-15 08:11 | Emergency (ER) | payer MEDICARE, MEDICAID, SELFPAY ==
[2022-11-15 08:12] VITALS: BP 142/78; PULSE 64; RESP 14; TEMP 36.4; O2SAT 98; BMI 37.2
--- NOTE | 2022-11-15 08:37 | RAD_ITS ---
STUDY: X-RAY - LEFT SHOULDER REASON FOR EXAM: Female, 57 years old. Pain following a fall. TECHNIQUE: 2 view(s) of the shoulder. COMPARISON: Comparison is made with prior study dated January 25, 2022. FINDINGS: There is moderate degenerative arthrosis of the glenohumeral articulation. Resection of the distal portion of the left clavicle. Normal acromion. Normal humeral head and visualized proximal humerus. The soft tissue structures are unremarkable. Normal visualized pulmonary apex. RAD/Shoulder min 2 Views IMPRESSION: Degenerative changes. No fracture or dislocation is seen. Electronically Signed: Manuelito Silva MD at 9:41 EDT ,
--- NOTE | 2022-11-15 08:37 | RAD_ITS ---
STUDY: X-RAY - LEFT ANKLE REASON FOR EXAM: Female, 57 years old. Pain following a fall. History of prior ORIF of the fibula and tibia. TECHNIQUE: 3 view(s) of the ankle. COMPARISON: Comparison is made with prior study October 28, 2022. FINDINGS: The patient is once again status post ORIF of the distal fibula and tibia. There has been screw fixation of the tibial talar joint. No acute fracture is seen. Normal visualized talus and calcaneus. Once again, there is evidence of arthrosis of the subtalar joint. The visualized subtalar, talonavicular, calcaneocuboid and tarsal articulations are normal. Persistent soft tissue swelling. RAD/Ankle min 3 Views IMPRESSION: Status post tibial talar fusion and ORIF of the medial malleolus and lateral portion of the fibula. Soft tissue swelling. Electronically Signed: Manuelito Silva MD at 9:38 EDT ,
--- NOTE | 2022-11-15 08:38 | EX.ED.UPPERE ---
HPI History of Present Illness Chief Complaint: Upper Extremity Injury Detail of Chief Complaint: Fall with injury to left shoulder and left ankle Informant: patient Narrative Narrative: Does the emergency department stating that she had a fall a week and a half ago where she landed on her left side and her left shoulder and left ankle. Patient states she has arthritis in her left shoulder and has chronic pain and is supposed have surgery on her shoulder with Dr. Yung but that has not been scheduled yet. Patient also states that she injured her left ankle and it was swollen and continues to cause her discomfort when she walks with her walker. She is able to bear weight. Patient also states that her Snider bag has a leak in it and she would like to have a new Snider bag. Patient denies any other injuries. [facility] Medical History Anemia Asthma Atherosclerotic heart disease of [place] coronary artery without angina pectoris Benign essential hypertension BiPAP (biphasic positive airway pressure) dependence Bleeding tendency Blood loss anemia CAD (coronary artery disease) Cardiac dysrhythmia Chest pain Chest pain at rest Chronic cough Chronic narcotic use Closed fracture of proximal end of fibula COPD (chronic obstructive pulmonary disease) Current use of insulin Delayed surgical wound healing Diabetes Dislocation of hip, right, closed Emphysema of lung Gastroesophageal reflux disease High cholesterol Hip osteoarthritis History of left heart catheterization (LHC) (~07/05/21) History of pulmonary embolism History of revision of total replacement of right hip joint History of stress test Hypertension Irregular heart beat Irritable bowel Morbid obesity Myocardial infarct Obesity On home oxygen therapy RACHEL (obstructive sleep apnea) Pancreatitis Peptic ulcer Preoperative cardiovascular examination Presence of stent in coronary artery (~02/07/11) Pulmonary hypertension Schizoaffective disorder Schizophrenia Sleep apnea Smoker Spinal stenosis of lumbar region at multiple levels Stage 2 moderate COPD by GOLD classification Suspected COVID-19 virus infection Takotsubo cardiomyopathy Thyroid nodule Tobacco abuse Type 2 diabetes mellitus Ulcer Vitamin D deficiency Home Medications atorvastatin 80 mg tablet 80 mg PO QHS cholesterol 08/22/15 [History Last Taken 08/03/21] pregabalin 75 mg capsule 75 mg PO TID PAIN 03/08/18 [History Last Taken 08/03/21] risperidone 4 mg tablet 4 mg PO QHS sleep 03/08/18 [History Last Taken 08/04/21] trazodone 100 mg tablet 200 mg PO QHS PRN Insomnia 03/08/18 [History Last Taken 08/04/21] buspirone 30 mg tablet 30 mg PO BID anxiety 06/27/19 [History Last Taken 08/03/21] clopidogrel 75 mg tablet 75 mg PO DAILY blood thinner 07/31/20 [History Last Taken 08/03/21] escitalopram oxalate 20 mg tablet 20 mg PO DAILY mental health 11/14/20 [History Last Taken 08/03/21] fluticasone propionate 230 mcg-salmeterol 21 mcg/actuation HFA inhaler (Advair HFA) 2 puff inhalation BID SOB 11/14/20 [History Last Taken 08/05/21] promethazine 25 mg tablet 25 mg PO BID PRN PRN Nausea 11/14/20 [History Last Taken 08/04/21] potassium chloride 20 mEq tablet,extended release (K-Tab) 40 meq PO DAILY potassium replacement 01/13/21 [History Last Taken 08/05/21] albuterol sulfate 2.5 mg/3 mL (0.083 %) solution for nebulization 2.5 mg (3 mL) inhalation Q4H PRN Sob &/Or Wheezing #180 mL 05/25/21 [Rx Last Taken Unknown] pantoprazole 40 mg tablet,delayed release 40 mg PO BID gerd 08/05/21 [History Last Taken 08/03/21] sucralfate 1 gram tablet 1 g PO Q6H stomach 08/05/21 [History Last Taken 08/04/21] fluticasone propionate 50 mcg/actuation nasal spray,suspension 1 spray intranasal BID allergies #16 grams 06/29/22 [Rx Last Taken Unknown] amlodipine 10 mg tablet 10 mg PO DAILY blood pressure 07/22/22 [History Last Taken Unknown] apixaban 5 mg tablet (Eliquis) 5 mg PO BID blood thinner 07/22/22 [History Last Taken Unknown] dicyclomine 20 mg tablet 20 mg PO 4X/DAY Check with primary doctor 07/22/22 [History Last Taken Unknown] ferrous sulfate 325 mg (65 mg iron) tablet 325 mg PO QODAY anemia 07/22/22 [History Last Taken Unknown] glimepiride 2 mg tablet 2 mg PO BID diabetes 07/22/22 [History Last Taken Unknown] insulin glargine 100 unit/mL (3 mL) subcutaneous pen (Lantus Solostar U-100 Insulin) 40 unit subcut BID diabetes 07/22/22 [History Last Taken Unknown] lamotrigine 25 mg tablet 100 mg PO DAILY Check with primary doctor 07/22/22 [History Last Taken Unknown] sucralfate 1 gram tablet (Carafate) 1 g PO 4X/DAY stomach 07/22/22 [History Last Taken Unknown] tiotropium bromide 2.5 mcg/actuation mist for inhalation (Spiriva Respimat) 2 puff inhalation DAILY copd 07/22/22 [History Last Taken Unknown] tizanidine 4 mg capsule 4 mg PO Q8H PRN Muscle Spasm 07/22/22 [History Last Taken Unknown] hydrocodone-acetaminophen 5-325mg 5mg-325mg 1 tab PO Q6H PRN PRN Pain 3 days #10 TABLETS 07/27/22 [Rx Last Taken Unknown] melatonin 10 mg tablet 10 mg PO QHS PRN PRN Insomnia 08/17/22 [History Last Taken Unknown] metoprolol succinate 50 mg tablet,extended release 24 hr 50 mg PO DAILY heart 08/17/22 [History Last Taken Unknown] furosemide 40 mg tablet (Lasix) 40 mg PO DAILY #30 tabs 08/19/22 [Rx Last Taken Unknown] levofloxacin 750 mg tablet 750 mg PO DAILY #5 tabs 08/19/22 [Rx Last Taken Unknown] prednisone 20 mg tablet 40 mg (2 x 20 mg) PO DAILY #10 tabs 08/19/22 [Rx Last Taken Unknown] nystatin 100,000 unit/mL oral suspension 5 ml mucous membrane TID #250 mL 08/22/22 [Rx Last Taken Unknown] montelukast 10 mg tablet 10 mg PO DAILY pain #90 tabs 08/31/22 [Rx Last Taken Unknown] nitrofurantoin monohydrate/macrocrystals 100 mg capsule 100 mg PO Q12 #14 CAPSULES 08/31/22 [Rx Last Taken Unknown] albuterol sulfate 90 mcg/actuation aerosol inhaler 2 puff inhalation Q4H PRN PRN SOB &/or Wheezing #8.5 grams 09/09/22 [Rx Last Taken Unknown] prednisone 50 mg tablet 50 mg PO DAILY #5 tabs 09/14/22 [Rx Last Taken Unknown] hydrocodone-acetaminophen 5-325mg 5mg-325mg 1 tab PO Q4H PRN PRN Pain 2 days #10 TABLETS 11/15/22 [Rx Last Taken Unknown] Allergy/AdvReac Type Severity Reaction Status Date / Time tramadol [From Ultram] Allergy Severe Blisters, Verified 11/15/22 08:12 itching amoxicillin Allergy Itching Verified 11/15/22 08:12 erythromycin base Allergy Unknown Verified 11/15/22 08:12 methadone Allergy Itching Verified 11/15/22 08:12 metolazone Allergy Unknown Verified 11/15/22 08:12 Penicillins Allergy Hives Verified 11/15/22 08:12 Sulfa (Sulfonamide Allergy Hives Verified 11/15/22 08:12 Antibiotics) clarithromycin [From Biaxin] AdvReac Nausea Verified 11/15/22 08:12 ibuprofen AdvReac 3 BLEEDING Verified 11/15/22 08:12 ULCERS morphine AdvReac HEADACHE Verified 11/15/22 08:12 oxycodone [From Percocet] AdvReac Itching Verified 11/15/22 08:12 Family History Mother Heart disease Cancer uterine Father Hypertension Arthritis Hyperlipemia Grandmother Breast cancer Heart disease Grandfather Heart disease Sister Hypertension Surgical History History of appendectomy History of carpal tunnel surgery of left wrist History of cholecystectomy History of gastric bypass History of gastric bypass History of right ankle surgery history of right hip surgery History of tonsillectomy Presence of coronary angioplasty implant and graft (~02/07/11) Social History household members: none Smoking Status: Current every day smoker tobacco type: cigarettes alcohol intake: never substance use type: does not use caffeine: Yes (occasional) what type of physical activity do you participate in: none ROS ROS ED Review of Systems ROS Unobtainable: other Constitutional Constitutional ED: Reports lethargy; Denies chills, fever(s), sweats or weight loss Eyes Eyes: Denies blurry vision, change in vision or diplopia ENT ENT ED: Denies rhinorrhea or sore throat Cardiovascular Cardiovascular: Denies chest pain, orthopnea or racing heartbeat Respiratory/Chest Respiratory/Chest: Denies cough, dyspnea, dyspnea on exertion, orthopnea or sputum Gastrointestinal Gastrointestinal: Denies abdominal pain, diarrhea, nausea or vomiting Genitourinary Genitourinary ED: Denies dysuria, hematuria or urinary frequency Musculoskeletal Musculoskeletal: Reports other Details: Left shoulder and left ankle pain ; Denies arthralgias, back pain, myalgias or neck pain Integumentary Denies abscess, Abrasions or rash Neurologic Neurologic: Denies headache(s) or weakness Psychiatric Psychiatric: Denies anxiety, depression or suicidal thoughts Endocrine Endocrinology: Denies polydipsia, polyphagia or polyuria Hematologic/Lymphatic Hematologic/Lymphatic: Denies easy bleeding, easy bruising or lymphadenopathy Allergic/Immunologic Allergic/Immunologic ED: Denies mouth swelling, tongue swelling or urticaria EXAM Physical Exam Const Vital Signs: 11/15/22 08:12 Temperature 97.6 F L Temperature Source Temporal Pulse Rate 64 Respiratory Rate 14 Blood Pressure 142/78 H Blood Pressure Mean 99 Pulse Ox 98 Oxygen Delivery Method Room Air Positive well nourished and well developed General Appearance ED: well developed and NAD HEENT Reports TM's clear and moist mucous membranes normocephalic and atraumatic; Negative for trauma or tenderness Tympanic Membrane ED: Yes TM's clear Eyes PERRL and EOMs intact bilaterally General Eye ED: Negative for pale conjunctiva or scleral icterus Neck no lymphadenopathy, supple and no JVD General: Negative for tenderness Chest Wall inspection of chest normal and palpation of chest normal Chest: Negative for tenderness Resp normal respiratory effort and clear to auscultation bilaterally Effort and Inspection: Negative for respiratory distress or pain with movement Auscultation: Negative for rhonchi, wheezes or diminished lung sounds Cardio regular rate, regular rhythm, S1 normal heart sound, S2 normal heart sound and no murmurs Peripheral Pulses: pulses 2+ throughout GI normal to inspection, nondistended, normoactive bowel sounds, soft to palpation, non-tender, non-distended and no masses Back/Spine no CVA tenderness and no thoracic nor lumbar tenderness Extremity Extremity Narrative: Shoulder left-no obvious deformity. Decreased range of motion secondary to pain. Mild diffuse tenderness over the glenohumeral joint. Neurovascularly intact distally. No sulcus sign. Left ankle-diffuse tenderness over the lateral malleolus. There is no ecchymosis or bruising. There are some mild soft tissue swelling. Neurovascular intact distally. No pain at the proximal fibular head. No pain at the base of the fifth metatarsal. General Extremety ED: Negative for edema General Extremity: Negative for edema Neuro oriented x3, CN's II-XII intact bilaterally, no sensory deficits noted and gait normal Sensorium / Orientation: awake, alert, oriented to person, oriented to place and oriented to time Motor Exam: strength 5/5 throughout and strength abnormal Psych mental status grossly normal Skin no rashes or lesions noted and no wounds MDM MDM MDM Narrative Medical decision making narrative: Patient presents with pain in the left shoulder and left ankle after a fall. X-rays obtained showed no evidence of new fractures. We will give patient a new urine bag. Advised to follow-up with her primary care physician within next 3 to 5 days. Also advised to follow-up with her orthopedic surgeon with persistent pain. She will be given a prescription for a few [place] for pain. This patient in a sling given that she normally uses a walker to walk and it would make it impossible to walk with a sling. Patient to follow-up with her orthopedic surgeon. Radiography Diagnostic Testing: View x-rays of the left ankle obtained interpreted by myself as no evidence of new fracture or dislocation. She does have hardware from prior ankle surgery that appears to be intact. 2 view x-rays of the left shoulder obtained interpreted by myself as no evidence of fracture or dislocation. Discharge Plan Triage Chief Complaint: Upper Extremity Injury ED Provider: Shanel Barbosa Dx/Rx/DC Orders Clinical Impression: Fall, Contusion of left shoulder, Left ankle sprain Instructions: ED Fall with Uncertain Cause, ED Ankle Sprain (Adult), ED Shoulder Contusion Prescriptions: New hydrocodone-acetaminophen [hydrocodone-acetaminophen] 5-325 mg tablet 1 tab PO Q4H PRN PRN (Reason: Pain) 2 Days Qty: 10 0RF No Action albuterol sulfate 2.5 mg /3 mL (0.083 %) solution for nebulization 2.5 mg inhalation Q4H PRN (Reason: Sob &/Or Wheezing) Qty: 180 3RF fluticasone propionate 50 mcg/actuation spray,suspension 1 spray INTRANASAL BID Qty: 16 11RF atorvastatin 80 MG tablet 80 mg PO QHS Patient Comments: cholesterol risperidone 4 mg tablet 4 mg PO QHS Patient Comments: Take 1 tablet by mouth at bedtime trazodone 100 MG tablet 200 mg PO QHS PRN (Reason: Insomnia) pregabalin 75 MG capsule 75 mg PO TID buspirone 30 mg tablet 30 mg PO BID clopidogrel 75 mg tablet 75 mg PO DAILY promethazine 25 mg Tablet 25 mg PO BID PRN PRN (Reason: Nausea) escitalopram oxalate 20 mg Tablet 20 mg PO DAILY fluticasone propion-salmeterol [Advair HFA] 230-21 mcg/actuation Hfa Aerosol Inhaler 2 puff INHALATION BID potassium chloride [K-Tab] 20 mEq tablet extended release 40 meq PO DAILY sucralfate 1 gram tablet 1 g PO Q6H pantoprazole 40 mg tablet,delayed release (DR/EC) 40 mg PO BID sucralfate [Carafate] 1 gram Tablet 1 g PO 4X/DAY amlodipine 10 mg Tablet 10 mg PO DAILY dicyclomine 20 mg Tablet 20 mg PO 4X/DAY Eliquis 5 mg Tablet 5 mg PO BID glimepiride 2 mg Tablet 2 mg PO BID ferrous sulfate 325 mg (65 mg iron) Tablet 325 mg PO QODAY tizanidine 4 mg Capsule 4 mg PO Q8H PRN (Reason: Muscle Spasm) Spiriva Respimat 2.5 mcg/actuation Mist 2 puff INHALATION DAILY insulin glargine [Lantus Solostar U-100 Insulin] 100 unit/mL (3 mL) Insulin Pen 40 unit SUBCUT BID lamotrigine 25 mg Tablet 100 mg PO DAILY hydrocodone-acetaminophen 5-325 mg tablet 1 tab PO Q6H PRN PRN (Reason: Pain) 3 Days Qty: 10 0RF metoprolol succinate 50 mg Tablet Extended Release 24 Hr 50 mg PO DAILY melatonin 10 mg Tablet 10 mg PO QHS PRN PRN (Reason: Insomnia) prednisone 20 mg tablet 40 mg PO DAILY Qty: 10 0RF levofloxacin 750 mg tablet 750 mg PO DAILY Qty: 5 0RF furosemide [Lasix] 40 mg tablet 40 mg PO DAILY Qty: 30 1RF nitrofurantoin monohyd/m-cryst [nitrofurantoin monohyd/m-cryst] 100 mg capsule 100 mg PO Q12 Qty: 14 0RF prednisone 50 mg tablet 50 mg PO DAILY Qty: 5 0RF nystatin 100,000 unit/mL suspension 5 ml mucous membrane TID Qty: 250 1RF Rx Instructions: swish and swallow 5 cc three times per day for 10 days montelukast 10 mg tablet 10 mg PO DAILY Qty: 90 3RF albuterol sulfate 90 mcg/actuation HFA aerosol inhaler 2 puff inhalation Q4H PRN PRN (Reason: SOB &/or Wheezing ) Qty: 8.5 11RF Primary Care Provider: Janel Taylor Referrals: Janel Taylor MD [Primary Care Provider] - 3-5 Days Pop Yung MD [Med Staff - Active Staff] - 3-5 Days Disposition Disposition: Home, Self Care Discharge Date/Time: 11/15/22 10:02
[2022-11-15] MEDS: HYDROcodone Bitartrate/Apap 5/325 Tablet PO (09:46)
[2022-11-15 10:00] VITALS: BP 132/74; PULSE 75; RESP 16; TEMP 36.7; O2SAT 97
== END 2022-11-15 10:02 | disposition home or self-care (01) ==
PROVIDERS: Emergency Provider Emergency Medicine; PCP Family Medicine; Visit Provider Emergency Medicine
DX: S93.402A Sprain of unspecified ligament of left ankle, initial encounter (principal); J43.9 Emphysema, unspecified; E11.9 Type 2 diabetes mellitus without complications; Z79.4 Long term (current) use of insulin; S40.012A Contusion of left shoulder, initial encounter; W19.XXXA Unspecified fall, initial encounter; I10 Essential (primary) hypertension; I25.10 Atherosclerotic heart disease of native coronary artery without angina pectoris; E78.00 Pure hypercholesterolemia, unspecified; G89.29 Other chronic pain; G47.33 Obstructive sleep apnea (adult) (pediatric); F17.210 Nicotine dependence, cigarettes, uncomplicated; Z99.81 Dependence on supplemental oxygen; Z79.01 Long term (current) use of anticoagulants; Z79.02 Long term (current) use of antithrombotics/antiplatelets; Z79.84 Long term (current) use of oral hypoglycemic drugs; Z79.899 Other long term (current) drug therapy; I25.2 Old myocardial infarction; Z95.5 Presence of coronary angioplasty implant and graft
CPT/HCPCS: 73030; 73610; 99283

== ENCOUNTER 2022-11-18 10:27 | Outpatient (RCR) | payer MEDICARE, MEDICAID, SELFPAY ==
[2022-11-04 00:18] VITALS: BP 119/87; PULSE 87; RESP 20; TEMP 36.6; O2SAT 97; BMI 38.0
[2022-11-18 10:14] VITALS: BP 138/81; PULSE 99; RESP 20; TEMP 36.4; BMI 38.0
--- NOTE | 2022-11-18 11:25 | PN.PCM_ITS ---
History of Present Illness Date of Service: 11/18/22 Chief Complaint: nonhealing ulcer left posteromedial thigh and nonhealing ulcer left ischial area History of Wound: Crystal is a 57-year-old patient with history of diabetic neuropathy, bipolar, schizoaffective disorder, depression, hypertension, cardiac disease, obesity, excessive tobacco use that presents to the wound center today for treatment and evaluation of ulcers of her left medial thigh and perineum that have been present for approx. 3 months. Patient has known problems healing and has been seen at the wound center for previous non-healing wounds of her lower extremities. She continues to smoke and is smoking approximately 2 packs/day. She does not know the cause of the ulcers of her left thigh and perineum but thinks it may have been from an abrasion from sliding to get out of a chair. She has tried treatment with Nystatin powder, Nystatin cream and Calmoseptine but they have not improved. Dr. Taylor performed a punch biopsy on 06/24/22 and this did not show any sign of malignancy and showed changes associated with a chronic wound and no evidence of fungal infection. She has been unable to keep this area covered due to dressings not staying in place. She does have DM and this is controlled, most recent A1C was 6.8% on 11/26/21. 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 This recurred after treatment with antiviral a few weeks prior. The area is very painful per patient and the ulcer of the perineum drains moderate to heavy and the thigh drains light to moderate. She is incontinent of urine. She denies fever, chills, increased erythema, odor. Subjective Subjective Crystal returns today for evaluation and treatment of ulcers of her left groin area. Her ulcers are healed today. Objective Data Objective Data Vital Signs: Vital Signs Temp Pulse Resp BP Pulse Ox 97.5 F L 99 20 H 138/81 H 97 11/18/22 10:11/18/22 10:11/18/22 10:11/18/22 10:11/04/22 00:18 Weight: 97.522 kg Body Mass Index (BMI) 38.0 Physical Exam Const alert, oriented x3 and no apparent distress General Appearance: cooperative and comfortable HEENT normocephalic and head/scalp atraumatic Resp normal respiratory effort Effort and Inspection: able to speak in complete sentences Cardio regular rate and regular rhythm Skin Skin Narrative: right groin with vesicular rash Wounds: wounds noted Wound Narrative: as in clinical panel Psych mental status grossly normal, thought process normal, cooperative and affect normal Debridement Note Debridement Note Wound debrided: Left medial posterior thigh Laterality: Left Wound Grade/Stage: Stage 3 No debridement was completed: No debridement was completed today Post-Debridement Measurements and Additional Note: Post-Debridement Measurements/Treatment WOOD - Nurse 1 - General Ulcer Assessment Start: 11/18/22 10:14 Freq: Status: Active Protocol: LISY Activity Type Activity Date Activity User E-sign Co-sign Detail Recorded Client Recorded Date Recorded By Document 11/18/22 10:14 DL [id number] 11/18/22 10:24 DL 11/18/22 10:14 WC - Today's Visit Information Type of service Follow-up Visit (Physician/ACCOUNT ADVISOR ) Arrival Mode Ambulatory, Walker Transfer Assistance None Patient Identification Verified (Name & Yes ) Patient Requires Transmission-Based No Precautions Height and Weight Body Mass Index (BMI) 38.0 BMI Classification Obese Vital Signs Temperature (97.8 F-99.1 F) 97.5 F L Temperature Source Oral Pulse Rate (60-100) 99 Pulse Location Monitor Respiratory Rate (12-18) 20 H Respiratory rate source Observation Blood Pressure (90/60-120/80) 138/81 H Blood Pressure Mean (mm Hg) 100 Source Monitor History Since Last Visit- (Skip if this is Patient's initial visit) Have you changed medications since your No last visit? Any new allergies or adverse reactions No Had a fall/change in ADL's that may No increase risk of falls Signs or symptoms of abuse and/or No neglect since last visit Have you been in the hospital since your No last visit? Has dressing in place as prescribed Yes Has compression in place as prescribed N/A Has offloadiing in place as prescribed N/A Experienced any changes in pain level or No management Pain Scale: 0-10 Numeric Is Patient Pain Free? Yes WOOD [place] Nurse 1 - General Ulcer Measurement Start: 11/18/22 10:14 Freq: Status: Active Protocol: Activity Type Activity Date Activity User E-sign Co-sign Detail Recorded Client Recorded Date Recorded By Document 11/18/22 10:14 MASOOD [id number] 11/18/22 10:24 DL 11/18/22 10:14 Wound Center Nurse 1 #11- Left MED POST THIGH -Current Size (cm) - Length 0.1 -Current Size (cm) - Width 0.1 -Current Size (cm) - Depth 0.1 -Total Square Cm 0.01 -Exudate Amt None Present -Wound Margin Flat & Intact -Granulation Amt Large (67-100%) -Granulation Quality [place] -Necrosis Amt None Present (0 %) -Structure Exposed N/A -Texture (Adriane-wound Skin Appearance) Scarring -Moisture (Adriane-wound Skin Appearance) No Abnormality -Color (Adriane-wound Skin Appearance) No Abnormality -Temperature (Adriane-wound Skin No Abnormality Appearance) (Pt Warm) -Tenderness on Palpation (Adriane-wound No Skin Appearance) -Ulcer Cleansing Soap and Water -Foul Odor after Cleansing No -Anesthetic Used 5% Lidocaine Gel #10- L BUTTOCK -Current Size (cm) - Length 0.1 -Current Size (cm) - Width 0.1 -Current Size (cm) - Depth 0.1 -Total Square Cm 0.01 -Exudate Amt None Present -Wound Margin Flat & Intact -Granulation Amt None Present (0 %) -Necrosis Amt Large (67-100%) -Necrotic Tissue Type Adherent Slough -Structure Exposed N/A -Texture (Adriane-wound Skin Appearance) Scarring -Moisture (Adriane-wound Skin Appearance) No Abnormality -Color (Adriane-wound Skin Appearance) No Abnormality -Tenderness on Palpation (Adriane-wound No Skin Appearance) -Ulcer Cleansing Soap and Water -Foul Odor after Cleansing No -Anesthetic Used 5% Lidocaine Gel WC - Nurse 3 - General Ulcer D/C NN Start: 11/18/22 10:14 Freq: Status: Active Protocol: Activity Type Activity Date Activity User E-sign Co-sign Detail Recorded Client Recorded Date Recorded By Document 11/18/22 10:43 RB [id number] 11/18/22 10:45 RB 11/18/22 10:43 Wound Care Center Nurse 3 #11- Left MED POST THIGH -Primary Dressing Covered/Secured with Dry Gauze, Secured with Tape #10- L BUTTOCK -Primary Dressing Covered/Secured with Dry Gauze, Secured with Tape Treatment Response Procedure Tolerated Well Pain Scale: 0-10 Numeric Is Patient Pain Free? Yes Teaching: Wound Center *Tissue Oxygenation -Person Taught Patient -Teaching Method Discussion, Demonstration -Response to teaching Verbalize understanding WC - Visit Discharge Discharge Condition Stable Ambulatory Status Ambulatory Transportation Private Auto Medication Reconcilliation completed & No provided to patient/care provider Clinical Summary of Care Provided Yes Additional Wound Wound debrided: left buttock Operative Diagnosis: no debridement done - healed today Assessment/Plan Assessment/Plan (1) Chronic ulcer of left thigh with fat layer exposed: CODE(S): L97.122 - Non-pressure chronic ulcer of left thigh with fat layer exposed (2) Decubitus ulcer of left thigh, stage 3: CODE(S): L89.223 - Pressure ulcer of left hip, stage 3 (3) Decubitus ulcer of left buttock, stage 3: CODE(S): L89.323 - Pressure ulcer of left buttock, stage 3 (4) Morbid obesity due to excess calories: CODE(S): E66.01 - Morbid (severe) obesity due to excess calories (5) Overactive bladder: CODE(S): N32.81 - Overactive bladder PLAN: Plan Crystal's ulcers are healed. At home wound-care instructions: Will continue to dress left thigh ulcer with silicone dressing and change daily and as needed for the next week. Keep dressing clean and dry. Will continue Snider catheter x 1 week. Referral to urogynecology Dr. Edwards made for patient. Off-loading: The patient was instructed to avoid pressure and friction on the affected areas. Reposition every 2 hours at minimum. Avoid prolonged standing and/or dangling of legs. When seated, feet should be elevated at chest level. Frequent ambulation is encouraged. Diet: Patient encouraged to increase protein intake while taking caution to avoid high carbohydrate and/or sugar intake. Labs/cultures/imaging: Follow-up: She will be discharged at this time and follow up if needed in the future. Note: [employer] speech recognition photofinishing laboratory worker software was used to create portions of this document. Sound-alike and misspelled words, as well as other photofinishing laboratory worker errors may be contained in the documentation.
== END 2022-11-21 13:28 | disposition home or self-care (01) ==
LOC: WC 10:27
PROVIDERS: PCP Family Medicine; Referring Provider Family Medicine; Visit Provider Family Medicine
DX: Z09 Encounter for follow-up examination after completed treatment for conditions other than malignant neoplasm (principal); E11.40 Type 2 diabetes mellitus with diabetic neuropathy, unspecified; E66.01 Morbid (severe) obesity due to excess calories; Z79.4 Long term (current) use of insulin; I10 Essential (primary) hypertension; N32.81 Overactive bladder; R32 Unspecified urinary incontinence; Z68.38 Body mass index [BMI] 38.0-38.9, adult; F17.210 Nicotine dependence, cigarettes, uncomplicated; Z79.01 Long term (current) use of anticoagulants; Z79.02 Long term (current) use of antithrombotics/antiplatelets; Z79.84 Long term (current) use of oral hypoglycemic drugs; Z79.899 Other long term (current) drug therapy
CPT/HCPCS: 99213; G0463

== ENCOUNTER → 2022-12-23 | Outpatient (CLI) | payer MEDICARE, SELFPAY ==
[2022-12-23 17:11] LABS: Vitamin D,25 Hydroxy 31.7 ng/mL
[2022-12-23 17:55] LABS: Hemoglobin A1c 7.1 % (3.8-5.6)
== END | disposition home or self-care (01) ==
PROVIDERS: PCP Family Medicine; Referring Provider Podiatrist Foot & Ankle Surgery; Visit Provider Podiatrist Foot & Ankle Surgery
DX: E11.42 Type 2 diabetes mellitus with diabetic polyneuropathy (principal); S92.302A Fracture of unspecified metatarsal bone(s), left foot, initial encounter for closed fracture; X58.XXXA Exposure to other specified factors, initial encounter
CPT/HCPCS: 36415; 82306; 83036

== ENCOUNTER 2022-12-30 10:15 | Outpatient (RCR) | payer MEDICARE, SELFPAY ==
[2022-12-09 08:37] VITALS: BP 140/80; PULSE 85; RESP 18; TEMP 35.7
--- NOTE | 2022-12-09 13:54 | PCM.WC.PN ---
History of Present Illness Date of Service: 12/09/22 Chief Complaint: nonhealing ulcer left posteromedial thigh History of Wound: Crystal is a 57-year-old patient with history of diabetic neuropathy, bipolar, schizoaffective disorder, depression, hypertension, cardiac disease, obesity, excessive tobacco use that presents to the wound center today for treatment and evaluation of ulcers of her left medial thigh and perineum that have been present for approx. 3 months. Patient has known problems healing and has been seen at the wound center for previous non-healing wounds of her lower extremities. She continues to smoke and is smoking approximately 2 packs/day. She does not know the cause of the ulcers of her left thigh and perineum but thinks it may have been from an abrasion from sliding to get out of a chair. She has tried treatment with Nystatin powder, Nystatin cream and Calmoseptine but they have not improved. Dr. Taylor performed a punch biopsy on 06/24/22 and this did not show any sign of malignancy and showed changes associated with a chronic wound and no evidence of fungal infection. She has been unable to keep this area covered due to dressings not staying in place. She does have DM and this is controlled, most recent A1C was 6.8% on 11/26/21. 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 This recurred after treatment with antiviral a few weeks prior. The area is very painful per patient and the ulcer of the perineum drains moderate to heavy and the thigh drains light to moderate. She is incontinent of urine. She denies fever, chills, increased erythema, odor. Subjective Subjective Crystal returns today for treatment and re-evaluation of ulcer of left thigh. This was healed several weeks ago but re-opened. She has been applying Silvadene and trying to keep dressing on but dressing has been not staying due to urinary incontinence. Snider catheter was removed approx. 1.5 weeks ago. Shortly after the ulcer re-opened. She is scheduled to see Dr. Edwards on Monday. The left buttock area remains closed. There is moderate drainage and pain. Objective Data Objective Data Vital Signs: Vital Signs Temp Pulse Resp BP O2 Del Method 96.3 F L 85 18 140/80 H Room Air 12/09/22 08:37 12/09/22 08:37 12/09/22 08:37 12/09/22 08:37 12/09/22 08:37 Oxygen Delivery Method Room Air Physical Exam Const alert, oriented x3 and no apparent distress General Appearance: cooperative and comfortable HEENT normocephalic and head/scalp atraumatic Resp normal respiratory effort Effort and Inspection: able to speak in complete sentences Cardio regular rate and regular rhythm Skin Skin Narrative: right groin with vesicular rash Wounds: wounds noted Wound Narrative: as in clinical panel Psych mental status grossly normal, thought process normal, cooperative and affect normal Debridement Note Debridement Note Wound debrided: left thigh ulcer Laterality: Left Wound Grade/Stage: Stage 2 Type of Debridement: Excisional debridement Anesthesia Used: 4% Lidocaine Solution and 5% Lidocaine Gel Depth: Down to and including healthy tissue and in the subcutaneous layer Percentage of wound debrided: 100 Instrument Used: 5mm curette Tissue Removed: Yellow slough, devitalized tissue Severity: Fat Layer Exposed Amount of bleeding with debridement: Mild Bleeding Controlled with: Compression and gauze Patient tolerated procedure: Patient tolerated procedure well Post-Debridement Measurements and Additional Note: Post-Debridement Measurements/Treatment - Nurse 1 - General Ulcer Assessment Start: 12/09/22 08:37 Freq: Status: Active Protocol: LISY Activity Type Activity Date Activity User E-sign Co-sign Detail Recorded Client Recorded Date Recorded By Document 12/09/22 08:37 MW Desktop 12/09/22 08:45 MW 12/09/22 08:37 - Today's Visit Information Type of service Initial Visit Arrival Mode Ambulatory, Walker Accompanied by self Patient Identification Verified (Name & Yes ) Patient Requires Transmission-Based No Precautions Safety Precautions NA Vital Signs Temperature (97.8 F-99.1 F) 96.3 F L Temperature Source Temporal Pulse Rate (60-100) 85 Pulse Location Monitor Respiratory Rate (12-18) 18 Respiratory rate source Observation Oxygen Delivery Method Room Air Blood Pressure (90/60-120/80) 140/80 H Blood Pressure Mean (mm Hg) 100 Source Monitor Position Sitting Blood Pressure Location Right Arm History Since Last Visit- (Skip if this is Patient's initial visit) Have you changed medications since your No last visit? Any new allergies or adverse reactions No Had a fall/change in ADL's that may No increase risk of falls Signs or symptoms of abuse and/or No neglect since last visit Have you been in the hospital since your No last visit? Has dressing in place as prescribed Yes Has compression in place as prescribed N/A Has offloadiing in place as prescribed N/A Experienced any changes in pain level or No management Left Footwear Regular Shoe Right Footwear Regular Shoe Pain Scale: 0-10 Numeric Is Patient Pain Free? No WC - Nurse 1 - General Ulcer Measurement Start: 12/09/22 08:37 Freq: Status: Active Protocol: Activity Type Activity Date Activity User E-sign Co-sign Detail Recorded Client Recorded Date Recorded By Document 12/09/22 08:37 MW Desktop 12/09/22 08:45 MW 12/09/22 08:37 Wound Center Nurse 1 #11- Left MED POST THIGH -Combined with other wound No -Current Size (cm) - Length 1.5 -Current Size (cm) - Width 1.5 -Current Size (cm) - Depth 0.1 -Total Square Cm 2.25 -Photo Taken No -Epithelialization None Present -Tunneling No -Undermining/Tunneling No -Circular Undermining No -Exudate Amt Medium -Exudate Type Serosanguineous -Wound Margin Flat & Intact -Granulation Amt Large (67-100%) -Granulation Quality [place] -Slough/Fibrin Yes -Necrosis Amt Small (1-33%) -Texture (Adriane-wound Skin Appearance) Assessed, Scarring -Moisture (Adriane-wound Skin Appearance) No Abnormality, Assessed -Color (Adriane-wound Skin Appearance) No Abnormality, Assessed -Temperature (Adriane-wound Skin No Abnormality Appearance) (Pt Warm) -Tenderness on Palpation (Adriane-wound No Skin Appearance) -Ulcer Cleansing Rinsed/ Irrigated with Saline -Foul Odor after Cleansing No -Anesthetic Used 5% Lidocaine Gel Lower Limb Edema Present No WC - Nurse 2 - General Ulcer CM Notes Start: 12/09/22 08:37 Freq: Status: Active Protocol: Activity Type Activity Date Activity User E-sign Co-sign Detail Recorded Client Recorded Date Recorded By Document 12/09/22 08:57 GM Desktop 12/09/22 09:02 GM 12/09/22 08:57 Wound Center Nurse 2 #11- Left MED POST THIGH -Time 08:57 -Correct Patient Yes -Correct Side, Site, Position Yes -Correct Procedure Yes -Procedure Performed Yes -Type of Procedure Debridement -Clinical Debridement Subcutaneous -Tissue Removed Subcutaneous -Post Debridement (cm) - Length 2.0 -Post Debridement (cm) - Width 1.2 -Post Debridement (cm) - Depth 0.1 -Total Square (Post) (cm) 2.40 -Area of Debridement (cm) - Length 2.0 -Area of Debridement (cm) - Width 1.2 -Total Square (Area) (cm) 2.40 -Tunneling No -Undermining/Tunneling No -Circular Undermining No -Wound/Ulcer Outcome Not Healed -Ulcer Cleansing Rinsed/ Irrigated with Saline -Foul Odor after Cleansing No -Bioengineered Tissue No -Bleeding Controlled with Pressure -Treatment Response Procedure Tolerated Well -Offloading No -Debridement - Subq, 1st 20sq cm Yes Pain Scale: 0-10 Numeric Is Patient Pain Free? Yes - Nurse 3 - General Ulcer D/C NN Start: 12/09/22 08:37 Freq: Status: Active Protocol: Activity Type Activity Date Activity User E-sign Co-sign Detail Recorded Client Recorded Date Recorded By Document 12/09/22 09:13 MW Desktop 12/09/22 09:14 MW 12/09/22 09:13 Wound Care Center Nurse 3 #11- Left MED POST THIGH -Ulcer Cleansing Rinsed/ Irrigated with Saline -Foul Odor after Cleansing No -Negative Pressure Wound Therapy N/A -Other Dressing silvadene -Primary Dressing Covered/Secured with Dry Gauze, Secured with Tape Treatment Response Procedure Tolerated Well Pain Scale: 0-10 Numeric Is Patient Pain Free? Yes Teaching: Wound Center Dressing Your Wound -Person Taught Patient,Family -Teaching Method Discussion -Response to teaching Verbalize understanding - Visit Discharge Discharge Condition Stable Ambulatory Status Ambulatory, Walker Transportation Private Auto Accompanied by self Medication Reconcilliation completed & No provided to patient/care provider Clinical Summary of Care Provided Yes Assessment/Plan Assessment/Plan (1) Chronic ulcer of left thigh with fat layer exposed: CODE(S): L97.122 - Non-pressure chronic ulcer of left thigh with fat layer exposed (2) Decubitus ulcer of left thigh, stage 3: CODE(S): L89.223 - Pressure ulcer of left hip, stage 3 (3) Morbid obesity due to excess calories: CODE(S): E66.01 - Morbid (severe) obesity due to excess calories (4) Overactive bladder: CODE(S): N32.81 - Overactive bladder (5) Urinary incontinence without sensory awareness: CODE(S): N39.42 - Incontinence without sensory awareness PLAN: Plan Crystal's left thigh ulcer was evaluated and debrided today. At home wound-care instructions: Will continue to apply silvadene daily to dress left thigh ulcer and cover with silicone dressing. Keep dressing clean and dry. Will consider placement of Snider catheter again as this really helped to heal her ulcer. She has appointment with Dr. Edwards on Monday. Off-loading: The patient was instructed to avoid pressure and friction on the affected areas. Reposition every 2 hours at minimum. Avoid prolonged standing and/or dangling of legs. When seated, feet should be elevated at chest level. Frequent ambulation is encouraged. Diet: Patient encouraged to increase protein intake while taking caution to avoid high carbohydrate and/or sugar intake. Labs/cultures/imaging: Follow-up: She will follow up in 1 week. Call sooner if increased erythema, drainage or pain. Note: [employer] speech recognition restaurant bartender software was used to create portions of this document. Sound-alike and misspelled words, as well as other restaurant bartender errors may be contained in the documentation.
[2022-12-30 10:18] VITALS: BP 154/59; PULSE 70; RESP 18; TEMP 35.9
--- NOTE | 2022-12-30 13:45 | PCM.WC.PN ---
History of Present Illness Date of Service: 12/30/22 Chief Complaint: nonhealing ulcer left posteromedial thigh History of Wound: Crystal is a 57-year-old patient with history of diabetic neuropathy, bipolar, schizoaffective disorder, depression, hypertension, cardiac disease, obesity, excessive tobacco use that presents to the wound center today for treatment and evaluation of ulcers of her left medial thigh and perineum that have been present for approx. 3 months. Patient has known problems healing and has been seen at the wound center for previous non-healing wounds of her lower extremities. She continues to smoke and is smoking approximately 2 packs/day. She does not know the cause of the ulcers of her left thigh and perineum but thinks it may have been from an abrasion from sliding to get out of a chair. She has tried treatment with Nystatin powder, Nystatin cream and Calmoseptine but they have not improved. Dr. Taylor performed a punch biopsy on 06/24/22 and this did not show any sign of malignancy and showed changes associated with a chronic wound and no evidence of fungal infection. She has been unable to keep this area covered due to dressings not staying in place. She does have DM and this is controlled, most recent A1C was 6.8% on 11/26/21. 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 This recurred after treatment with antiviral a few weeks prior. The area is very painful per patient and the ulcer of the perineum drains moderate to heavy and the thigh drains light to moderate. She is incontinent of urine. She denies fever, chills, increased erythema, odor. Subjective Subjective Crystal returns today for treatment and re-evaluation of ulcer of left thigh. This was healed several weeks ago but re-opened. She has been applying Silvadene and trying to keep dressing on but dressing has been not staying due to urinary incontinence. Snider catheter was replaced approx. 1 week ago. Shortly after the ulcer re-opened. She is scheduled for surgical excison/closure in January with Dr. Toledo. The left buttock area remains closed. There is moderate drainage and pain. Objective Data Objective Data Vital Signs: Vital Signs Temp Pulse Resp BP O2 Del Method 96.7 F L 70 18 154/59 H Room Air 12/30/22 10:18 12/30/22 10:18 12/30/22 10:18 12/30/22 10:18 12/09/22 08:37 Oxygen Delivery Method Room Air Physical Exam Const alert, oriented x3 and no apparent distress General Appearance: cooperative and comfortable HEENT normocephalic and head/scalp atraumatic Resp normal respiratory effort Effort and Inspection: able to speak in complete sentences Cardio regular rate and regular rhythm Skin Skin Narrative: right groin with vesicular rash Wounds: wounds noted Wound Narrative: as in clinical panel Psych mental status grossly normal, thought process normal, cooperative and affect normal Debridement Note Debridement Note Wound debrided: left thigh ulcer Laterality: Left Wound Grade/Stage: Stage 2 Type of Debridement: Excisional debridement Anesthesia Used: 4% Lidocaine Solution and 5% Lidocaine Gel Depth: Down to and including healthy tissue and in the subcutaneous layer Percentage of wound debrided: 100 Instrument Used: 5mm curette Tissue Removed: Yellow slough, devitalized tissue Severity: Fat Layer Exposed Amount of bleeding with debridement: Mild Bleeding Controlled with: Compression and gauze Patient tolerated procedure: Patient tolerated procedure well Post-Debridement Measurements and Additional Note: Post-Debridement Measurements/Treatment - Nurse 1 - General Ulcer Assessment Start: 12/09/22 08:37 Freq: Status: Active Protocol: [email or web address] Activity Type Activity Date Activity User E-sign Co-sign Detail Recorded Client Recorded Date Recorded By Document 12/09/22 08:37 MW Desktop 12/09/22 08:45 MW Document 12/30/22 10:18 RB Desktop 12/30/22 10:27 RB Edit Result 12/30/22 10:18 RB (1) Desktop 12/30/22 10:28 RB (1) Blood Pressure (90/60-120/80) => 154/59 H Blood Pressure Mean (mm Hg) => 90 12/09/22 12/30/22 08:37 10:18 - Today's Visit Information Type of service Initial Visit Follow-up Visit (Physician/CYLINDER BATCHER ) Arrival Mode Ambulatory, Ambulatory, Walker Walker Transfer Assistance None Accompanied by self Patient Identification Verified (Name & Yes Yes ) Patient Requires Transmission-Based No Precautions Safety Precautions NA Vital Signs Temperature (97.8 F-99.1 F) 96.3 F L 96.7 F L Temperature Source Temporal Temporal Pulse Rate (60-100) 85 70 Pulse Location Monitor Monitor Respiratory Rate (12-18) 18 18 Respiratory rate source Observation Observation Oxygen Delivery Method Room Air Blood Pressure (90/60-120/80) 140/80 H 154/59 H Blood Pressure Mean (mm Hg) 100 90 Source Monitor Monitor Position Sitting Semi-Fowlers Blood Pressure Location Right Arm Right Arm History Since Last Visit- (Skip if this is Patient's initial visit) Have you changed medications since your No No last visit? Any new allergies or adverse reactions No No Had a fall/change in ADL's that may No No increase risk of falls Signs or symptoms of abuse and/or No No neglect since last visit Have you been in the hospital since your No No last visit? Has dressing in place as prescribed Yes Yes Has compression in place as prescribed N/A No Has offloadiing in place as prescribed N/A No Experienced any changes in pain level or No No management Left Footwear Regular Shoe Right Footwear Regular Shoe Pain Scale: 0-10 Numeric Is Patient Pain Free? No Yes WC - Nurse 1 - General Ulcer Measurement Start: 12/09/22 08:37 Freq: Status: Active Protocol: Activity Type Activity Date Activity User E-sign Co-sign Detail Recorded Client Recorded Date Recorded By Document 12/09/22 08:37 MW Desktop 12/09/22 08:45 MW Document 12/30/22 10:18 RB Desktop 12/30/22 10:27 RB 12/09/22 12/30/22 08:37 10:18 Wound Center Nurse 1 #11- Left MED POST THIGH -Combined with other wound No No -Current Size (cm) - Length 1.5 1 -Current Size (cm) - Width 1.5 1.7 -Current Size (cm) - Depth 0.1 0.3 -Total Square Cm 2.25 1.7 -Photo Taken No -Epithelialization None Present -Tunneling No No -Undermining/Tunneling No No -Circular Undermining No No -Exudate Amt Medium Large -Exudate Type Serosanguineous Serosanguineous -Wound Margin Flat & Intact Thickened & Rolled Under -Granulation Amt Large (67-100%) Medium (34-66%) -Granulation Quality Polson Polson -Slough/Fibrin Yes Yes -Necrosis Amt Small (1-33%) Medium (34-66%) -Necrotic Tissue Type Adherent Slough -Structure Exposed N/A -Texture (Adriane-wound Skin Appearance) Assessed, Assessed Scarring -Moisture (Adriane-wound Skin Appearance) No Abnormality, Assessed Assessed -Color (Adriane-wound Skin Appearance) No Abnormality, Assessed Assessed -Temperature (Adriane-wound Skin No Abnormality No Abnormality Appearance) (Pt Warm) (Pt Warm) -Tenderness on Palpation (Adraine-wound No No Skin Appearance) -Ulcer Cleansing Rinsed/ Wound Cleanser Irrigated with Saline -Foul Odor after Cleansing No No -Anesthetic Used 5% Lidocaine 5% Lidocaine Gel Gel Lower Limb Edema Present No WC - Nurse 2 - General Ulcer CM Notes Start: 12/09/22 08:37 Freq: Status: Active Protocol: Activity Type Activity Date Activity User E-sign Co-sign Detail Recorded Client Recorded Date Recorded By Document 12/09/22 08:57 GM Desktop 12/09/22 09:02 GM Document 12/30/22 11:33 GM Desktop 12/30/22 11:38 GM 12/09/22 12/30/22 08:57 11:33 Wound Center Nurse 2 #11- Left MED POST THIGH -Time 08:57 11:33 -Correct Patient Yes Yes -Correct Side, Site, Position Yes Yes -Correct Procedure Yes Yes -Procedure Performed Yes Yes -Type of Procedure Debridement Debridement -Clinical Debridement Subcutaneous Subcutaneous -Tissue Removed Subcutaneous Subcutaneous -Post Debridement (cm) - Length 2.0 1.8 -Post Debridement (cm) - Width 1.2 0.8 -Post Debridement (cm) - Depth 0.1 0.2 -Total Square (Post) (cm) 2.40 1.44 -Area of Debridement (cm) - Length 2.0 1.8 -Area of Debridement (cm) - Width 1.2 0.2 -Total Square (Area) (cm) 2.40 0.36 -Tunneling No No -Undermining/Tunneling No No -Circular Undermining No No -Wound/Ulcer Outcome Not Healed Not Healed -Ulcer Cleansing Rinsed/ Rinsed/ Irrigated with Irrigated with Saline Saline -Foul Odor after Cleansing No No -Bioengineered Tissue No No -Bleeding Controlled with Pressure Pressure -Treatment Response Procedure Procedure Tolerated Well Tolerated Well -Offloading No -Debridement - Subq, 1st 20sq cm Yes Yes Pain Scale: 0-10 Numeric Is Patient Pain Free? Yes Yes WC - Nurse 3 - General Ulcer D/C NN Start: 12/09/22 08:37 Freq: Status: Active Protocol: Activity Type Activity Date Activity User E-sign Co-sign Detail Recorded Client Recorded Date Recorded By Document 12/09/22 09:13 MW Desktop 12/09/22 09:14 MW Document 12/30/22 12:01 RB Desktop 12/30/22 12:02 RB 12/09/22 12/30/22 09:13 12:01 Wound Care Center Nurse 3 #11- Left MED POST THIGH -Ulcer Cleansing Rinsed/ Rinsed/ Irrigated with Irrigated with Saline Saline -Foul Odor after Cleansing No -Negative Pressure Wound Therapy N/A -Primary Dressing Applied Mepilex Border -Other Dressing silvadene silvadene -Primary Dressing Covered/Secured with Dry Gauze, Secured with Tape -Mepilex Border 1 Treatment Response Procedure Procedure Tolerated Well Tolerated Well Pain Scale: 0-10 Numeric Is Patient Pain Free? Yes Yes Teaching: Wound Center Dressing Your Wound -Person Taught Patient,Family Patient -Teaching Method Discussion Discussion, Demonstration -Response to teaching Verbalize Verbalize understanding understanding WC - Visit Discharge Discharge Condition Stable Stable Ambulatory Status Ambulatory, Ambulatory, Walker Walker Transportation Private Auto Private Auto Accompanied by self Medication Reconcilliation completed & No No provided to patient/care provider Clinical Summary of Care Provided Yes Yes Assessment/Plan Assessment/Plan (1) Chronic ulcer of left thigh with fat layer exposed: CODE(S): L97.122 - Non-pressure chronic ulcer of left thigh with fat layer exposed (2) Decubitus ulcer of left thigh, stage 3: CODE(S): L89.223 - Pressure ulcer of left hip, stage 3 (3) Morbid obesity due to excess calories: CODE(S): E66.01 - Morbid (severe) obesity due to excess calories (4) Overactive bladder: CODE(S): N32.81 - Overactive bladder (5) Urinary incontinence without sensory awareness: CODE(S): N39.42 - Incontinence without sensory awareness PLAN: Plan Crystal's left thigh ulcer was evaluated and debrided today. At home wound-care instructions: Will continue to apply silvadene daily to dress left thigh ulcer and cover with silicone dressing for moderate drainage. Keep dressing clean and dry. Continue Snider catheter again as this really helped to heal her ulcer. Will refer for Home Health for assistance with dressings/Snider care. Off-loading: The patient was instructed to avoid pressure and friction on the affected areas. Reposition every 2 hours at minimum. Avoid prolonged standing and/or dangling of legs. When seated, feet should be elevated at chest level. Frequent ambulation is encouraged. Diet: Patient encouraged to increase protein intake while taking caution to avoid high carbohydrate and/or sugar intake. Labs/cultures/imaging: Follow-up: She will follow up in 1 week. Call sooner if increased erythema, drainage or pain. Note: [employer] speech recognition review scheduling coordinator software was used to create portions of this document. Sound-alike and misspelled words, as well as other review scheduling coordinator errors may be contained in the documentation.
== END 2023-01-03 23:59 | disposition home or self-care (01) ==
LOC: WC 10:15
PROVIDERS: PCP Family Medicine; Referring Provider Family Medicine; Visit Provider Family Medicine
DX: E11.622 Type 2 diabetes mellitus with other skin ulcer (principal); F25.9 Schizoaffective disorder, unspecified; L97.122 Non-pressure chronic ulcer of left thigh with fat layer exposed; E11.40 Type 2 diabetes mellitus with diabetic neuropathy, unspecified; E66.01 Morbid (severe) obesity due to excess calories; Z79.4 Long term (current) use of insulin; I10 Essential (primary) hypertension; N32.81 Overactive bladder; N39.42 Incontinence without sensory awareness; B00.9 Herpesviral infection, unspecified; F17.290 Nicotine dependence, other tobacco product, uncomplicated; Z79.02 Long term (current) use of antithrombotics/antiplatelets; Z79.84 Long term (current) use of oral hypoglycemic drugs; Z79.899 Other long term (current) drug therapy
CPT/HCPCS: 11042; 99213; G0463

== ENCOUNTER 2023-01-01 00:55 | Emergency (ER) | payer MEDICARE, SELFPAY ==
[2023-01-01 00:56] VITALS: BP 113/86; PULSE 76; RESP 22; TEMP 36.2; O2SAT 100; BMI 18.2
[2023-01-01 01:05] VITALS: O2SAT 99
--- NOTE | 2023-01-01 01:11 | EX.ED.DYSGE1 ---
HPI History of Present Illness Chief Complaint: Snider C/O Informant: patient and EMS Narrative Narrative: 57-year-old female has had a Snider catheter for couple months to divert urine away from a chronic wound on her buttocks. She states it was changed 5 days ago, urine was sent and the culture came back positive for infection, she was started on an antibiotic yesterday. She does not know which one it is. She comes to the ER tonight because of hematuria that lasted for about 4-1/2 hours in the Snider catheter. She has had minor hematuria off-and-on since her catheter has been in but this was lasting longer. She is on Plavix because of stents in her heart and Eliquis because of pulmonary emboli and she states that her skein inspector told her she cannot come off of the Eliquis. Now, the bleeding is resolved. However the patient also states that for the past 3 to 4 days she has had worsening dyspnea with exertion and now with any little activity she is out of breath. She denies any chest discomfort with it. She has orthopnea. She has COPD and CHF, she has used her albuterol treatments at home, and they have not helped at all. She is on Lasix and has been compliant with that. She denies any fevers, chills, productive cough. 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 Bacterial infection due to Proteus mirabilis Bacterial UTI Benign essential hypertension BiPAP (biphasic positive airway pressure) dependence Bleeding tendency Blood loss anemia CAD (coronary artery disease) Cardiac dysrhythmia Chest pain Chest pain at rest Chronic cough Chronic narcotic use Chronic ulcer of left thigh with fat layer exposed Closed fracture of proximal end of fibula COPD (chronic obstructive pulmonary disease) Current use of insulin Delayed surgical wound healing Diabetes Dislocation of hip, right, closed Emphysema of lung Gastroesophageal reflux disease High cholesterol Hip osteoarthritis History of left heart catheterization (LHC) (~07/05/21) History of pulmonary embolism History of revision of total replacement of right hip joint History of stress test Hx methicillin resistant staph Hypertension Irregular heart beat Irritable bowel Morbid obesity Myocardial infarct Obesity On home oxygen therapy RACHEL (obstructive sleep apnea) Pancreatitis Peptic ulcer Preoperative cardiovascular examination Presence of stent in coronary artery (~02/07/11) Pressure sore of left ischium, stage 3 Pulmonary hypertension Schizoaffective disorder Schizophrenia Sleep apnea Smoker Spinal stenosis of lumbar region at multiple levels Stage 2 moderate COPD by GOLD classification Suspected COVID-19 virus infection Takotsubo cardiomyopathy Thyroid nodule Tobacco abuse Type 2 diabetes mellitus Ulcer Urinary incontinence without sensory awareness Vitamin D deficiency Home Medications atorvastatin 80 mg tablet 80 mg PO QHS cholesterol 08/22/15 [History Last Taken 08/03/21] pregabalin 75 mg capsule 75 mg PO TID PAIN 03/08/18 [History Last Taken 08/03/21] risperidone 4 mg tablet 4 mg PO QHS sleep 03/08/18 [History Last Taken 08/04/21] trazodone 100 mg tablet 200 mg PO QHS PRN Insomnia 03/08/18 [History Last Taken 08/04/21] buspirone 30 mg tablet 30 mg PO BID anxiety 06/27/19 [History Last Taken 08/03/21] clopidogrel 75 mg tablet 75 mg PO DAILY blood thinner 07/31/20 [History Last Taken 08/03/21] escitalopram oxalate 20 mg tablet 20 mg PO DAILY mental health 11/14/20 [History Last Taken 08/03/21] fluticasone propionate 230 mcg-salmeterol 21 mcg/actuation HFA inhaler (Advair HFA) 2 puff inhalation BID SOB 11/14/20 [History Last Taken 08/05/21] promethazine 25 mg tablet 25 mg PO BID PRN PRN Nausea 11/14/20 [History Last Taken 08/04/21] potassium chloride 20 mEq tablet,extended release (K-Tab) 40 meq PO DAILY potassium replacement 01/13/21 [History Last Taken 08/05/21] albuterol sulfate 2.5 mg/3 mL (0.083 %) solution for nebulization 2.5 mg (3 mL) inhalation Q4H PRN Sob &/Or Wheezing #180 mL 05/25/21 [Rx Last Taken Unknown] pantoprazole 40 mg tablet,delayed release 40 mg PO BID gerd 08/05/21 [History Last Taken 08/03/21] sucralfate 1 gram tablet 1 g PO Q6H stomach 08/05/21 [History Last Taken 08/04/21] fluticasone propionate 50 mcg/actuation nasal spray,suspension 1 spray intranasal BID allergies #16 grams 06/29/22 [Rx Last Taken Unknown] amlodipine 10 mg tablet 10 mg PO DAILY blood pressure 07/22/22 [History Last Taken Unknown] apixaban 5 mg tablet (Eliquis) 5 mg PO BID blood thinner 07/22/22 [History Last Taken Unknown] dicyclomine 20 mg tablet 20 mg PO 4X/DAY Check with primary doctor 07/22/22 [History Last Taken Unknown] ferrous sulfate 325 mg (65 mg iron) tablet 325 mg PO QODAY anemia 07/22/22 [History Last Taken Unknown] glimepiride 2 mg tablet 2 mg PO BID diabetes 07/22/22 [History Last Taken Unknown] insulin glargine 100 unit/mL (3 mL) subcutaneous pen (Lantus Solostar U-100 Insulin) 40 unit subcut BID diabetes 07/22/22 [History Last Taken Unknown] lamotrigine 25 mg tablet 100 mg PO DAILY Check with primary doctor 07/22/22 [History Last Taken Unknown] sucralfate 1 gram tablet (Carafate) 1 g PO 4X/DAY stomach 07/22/22 [History Last Taken Unknown] tiotropium bromide 2.5 mcg/actuation mist for inhalation (Spiriva Respimat) 2 puff inhalation DAILY copd 07/22/22 [History Last Taken Unknown] tizanidine 4 mg capsule 4 mg PO Q8H PRN Muscle Spasm 07/22/22 [History Last Taken Unknown] hydrocodone-acetaminophen 5-325mg 5mg-325mg 1 tab PO Q6H PRN PRN Pain 3 days #10 TABLETS 07/27/22 [Rx Last Taken Unknown] melatonin 10 mg tablet 10 mg PO QHS PRN PRN Insomnia 08/17/22 [History Last Taken Unknown] metoprolol succinate 50 mg tablet,extended release 24 hr 50 mg PO DAILY heart 08/17/22 [History Last Taken Unknown] furosemide 40 mg tablet (Lasix) 40 mg PO DAILY #30 tabs 08/19/22 [Rx Last Taken Unknown] levofloxacin 750 mg tablet 750 mg PO DAILY #5 tabs 08/19/22 [Rx Last Taken Unknown] prednisone 20 mg tablet 40 mg (2 x 20 mg) PO DAILY #10 tabs 08/19/22 [Rx Last Taken Unknown] nystatin 100,000 unit/mL oral suspension 5 ml mucous membrane TID #250 mL 08/22/22 [Rx Last Taken Unknown] montelukast 10 mg tablet 10 mg PO DAILY pain #90 tabs 08/31/22 [Rx Last Taken Unknown] nitrofurantoin monohydrate/macrocrystals 100 mg capsule 100 mg PO Q12 #14 CAPSULES 08/31/22 [Rx Last Taken Unknown] albuterol sulfate 90 mcg/actuation aerosol inhaler 2 puff inhalation Q4H PRN PRN SOB &/or Wheezing #8.5 grams 09/09/22 [Rx Last Taken Unknown] prednisone 50 mg tablet 50 mg PO DAILY #5 tabs 09/14/22 [Rx Last Taken Unknown] hydrocodone-acetaminophen 5-325mg 5mg-325mg 1 tab PO Q4H PRN PRN Pain 2 days #10 TABLETS 11/15/22 [Rx Last Taken Unknown] doxycycline monohydrate 100 mg capsule 100 mg PO BID #14 CAPSULES 01/01/23 [Rx Last Taken Unknown] prednisone 20 mg tablet 20 mg PO DAILY #4 TABLETS 01/01/23 [Rx Last Taken Unknown] Allergy/AdvReac Type Severity Reaction Status Date / Time tramadol [From Ultram] Allergy Severe Blisters, Verified 01/01/23 00:56 itching amoxicillin Allergy Itching Verified 01/01/23 00:56 erythromycin base Allergy Unknown Verified 01/01/23 00:56 methadone Allergy Itching Verified 01/01/23 00:56 metolazone Allergy Unknown Verified 01/01/23 00:56 Penicillins Allergy Hives Verified 01/01/23 00:56 Sulfa (Sulfonamide Allergy Hives Verified 01/01/23 00:56 Antibiotics) clarithromycin [From Biaxin] AdvReac Nausea Verified 01/01/23 00:56 ibuprofen AdvReac 3 BLEEDING Verified 01/01/23 00:56 ULCERS morphine AdvReac HEADACHE Verified 01/01/23 00:56 oxycodone [From Percocet] AdvReac Itching Verified 01/01/23 00:56 Family History Mother Heart disease Cancer uterine Father Hypertension Arthritis Hyperlipemia Grandmother Breast cancer Heart disease Grandfather Heart disease Sister Hypertension Surgical History History of appendectomy History of carpal tunnel surgery of left wrist History of cholecystectomy History of gastric bypass History of gastric bypass History of right ankle surgery history of right hip surgery History of tonsillectomy Presence of coronary angioplasty implant and graft (~02/07/11) Social History household members: none Smoking Status: Current every day smoker tobacco type: cigarettes alcohol intake: never substance use type: does not use caffeine: Yes (occasional) what type of physical activity do you participate in: none ROS ROS ED Constitutional Constitutional ED: Denies chills or fever(s) Eyes Eyes: Denies change in vision or diplopia ENT ENT ED: Denies rhinorrhea or sore throat Cardiovascular Cardiovascular: Reports orthopnea; Denies chest pain, leg edema or palpitations Respiratory/Chest Respiratory/Chest: Reports cough, dyspnea, dyspnea on exertion and orthopnea; Denies sputum Gastrointestinal Gastrointestinal: Reports other Details: Abdominal pain lower nonfocal otherwise, off-and-on, not present currently ; Denies diarrhea, nausea or vomiting Genitourinary Genitourinary ED: Reports hematuria; Denies dysuria Musculoskeletal Musculoskeletal: Reports other Details: Had back pain prior to catheter change and diagnosed with action, that is resolved ; Denies back pain or neck pain Integumentary Denies abscess or rash Neurologic Neurologic: Denies headache(s), paresthesias or weakness Psychiatric Psychiatric: Denies anxiety or suicidal thoughts EXAM Physical Exam Const Vital Signs: 01/01/23 00:56 01/01/23 01:05 01/01/23 01:34 Temperature 97.1 F L Temperature Source Temporal Pulse Rate 76 Respiratory Rate 22 H Respiratory Pattern Blood Pressure 113/86 H Blood Pressure Mean 95 Pulse Ox 100 Oxygen Delivery Method Room Air Room Air Oxygen Flow Rate (L/min) 99 01/01/23 01:28 01/01/23 02:56 Temperature Temperature Source Pulse Rate 73 73 Respiratory Rate 20 H 16 Respiratory Pattern Normal Blood Pressure 137/84 H Blood Pressure Mean 101 Pulse Ox 99 Oxygen Delivery Method Oxygen Flow Rate (L/min) Positive well nourished and well developed General Appearance ED: well developed and NAD HEENT Reports moist mucous membranes normocephalic and atraumatic Eyes PERRL and EOMs intact bilaterally Neck full ROM and supple Resp normal respiratory effort and clear to auscultation bilaterally Resp Narrative: Diminished at bases symmetrically. Trachea midline. No respiratory distress. Speaking in full sentences. Cardio regular rate, regular rhythm and no murmurs Rate: Negative for tachycardic GI non-tender and non-distended Auscultation: normoactive bowel sounds Palpation: soft Narrative: Snider catheter in place, no traces of any blood in the tubing or the bag. Transparent urine in the tubing and the bag currently. Back/Spine no CVA tenderness General Back: other FROM Extremity normal to inspection General Extremety ED: Negative for edema, pulses abnormal or tenderness General Extremity: Negative for edema or pulses abnormal Neuro oriented x3, CN's II-XII intact bilaterally and no sensory deficits noted Sensorium / Orientation: awake and alert Motor Exam: strength 5/5 throughout Skin no rashes or lesions noted and no wounds MDM MDM MDM Narrative Medical decision making narrative: Patient has no more hematuria and it did not recur while she was in the emergency department. Her respiratory symptoms sound more like her congestive heart failure, her COPD is in the differential diagnosis. Working her up for all of this, she has a leukocytosis, but she usually does. Her BNP is just slightly elevated at 144. Troponin within normal limits, EKG is normal. She is anticoagulated so I do not think we need to consider recurrent pulmonary emboli. Chest x-ray 2 views of my interpretation shows possible mild CHF but no obvious pneumonia or large pleural effusions; radiology's opinion is that there is nothing acute. She was given IV Lasix 40 mg while we were performing all of this testing and duo nebulizer treatment. She had improvement but states I am still coughing. Basically I think this work-up is more consistent with a COPD exacerbation. She is in agreement to do half dose prednisone given her diabetes for several days to see if that helps, she is ambulatory, she is not hypoxic and stable for discharge. Given her leukocytosis will prescribe her doxycycline as well. It is notable that at discharge the patient said to staff that if she would have known that she was not going to be given a free ride home, she would not have come to the ED tonight because I was not that bad. Lab Data Attestation: I reviewed the patient's lab results. Labs: Laboratory Results - last 24 hr 01/01/23 01:27 WBC 16.5 H RBC 3.72 L Hgb 9.3 L Hct 28.8 L MCV 77.4 L MCH 25.0 L MCHC 32.3 RDW Std Deviation 42.5 RDW Coeff of [place] 15.3 H Plt Count 342 MPV 9.4 Immature Gran % (Auto) 0.500 Neut % (Auto) 75.4 H Lymph % (Auto) 11.8 L [place] % (Auto) 9.7 Eos % (Auto) 1.7 Baso % (Auto) 0.9 Absolute Neuts (auto) 12.4 H Absolute Lymphs (auto) 1.94 Nucleated RBC % 0 Differential Comment SCANNED Diff Path Review May foll Sodium 128 L Potassium 4.1 Chloride 98 Carbon Dioxide 25.0 Anion Gap 5 BUN 11 Creatinine 0.86 Estim Creat Clear Calc 53.18 Est GFR (MDRD) Af Amer 88 Est GFR (MDRD) Non-Af 73 BUN/Creatinine Ratio 12.9 Glucose 130 H Calcium 9.3 Troponin I High Sens 8 B-Natriuretic Peptide 143.7 H Radiography Chest X-Ray - ED: 2 View, Read by ED Physician, CHF (Mild) and No Infiltrates Diagnostic Testing: Clinical Impression(s) from Imaging Studies Chest X-Ray 01/01/23 02:25 IMPRESSION: No acute cardiopulmonary disease. Electronically Signed: Vickie Pachceo MD at 2:49 EDT , Rhythm Strip Rhythm Strip: Sinus Rhythm Rate: 67 Ectopy: None EKG Initial EKG: Attestation: I personally reviewed and interpreted this EKG as follows: Interpretation: Sinus Rhythm and No Acute Injury Pattern Comments: Normal EKG Discharge Plan Triage Chief Complaint: Snider C/O Other Complaint: Shortness of Breath ED Provider: Rodrigo Delvalle Dx/Rx/DC Orders Clinical Impression: Hematuria, Acute exacerbation of chronic obstructive pulmonary disease (COPD), Anticoagulated Instructions: ED COPD Flare Prescriptions: New prednisone 20 mg tablet 20 mg PO DAILY Qty: 4 0RF doxycycline monohydrate 100 mg capsule 100 mg PO BID Qty: 14 0RF No Action albuterol sulfate 2.5 mg /3 mL (0.083 %) solution for nebulization 2.5 mg inhalation Q4H PRN (Reason: Sob &/Or Wheezing) Qty: 180 3RF fluticasone propionate 50 mcg/actuation spray,suspension 1 spray INTRANASAL BID Qty: 16 11RF atorvastatin 80 MG tablet 80 mg PO QHS Patient Comments: cholesterol risperidone 4 mg tablet 4 mg PO QHS Patient Comments: Take 1 tablet by mouth at bedtime trazodone 100 MG tablet 200 mg PO QHS PRN (Reason: Insomnia) pregabalin 75 MG capsule 75 mg PO TID buspirone 30 mg tablet 30 mg PO BID clopidogrel 75 mg tablet 75 mg PO DAILY promethazine 25 mg Tablet 25 mg PO BID PRN PRN (Reason: Nausea) escitalopram oxalate 20 mg Tablet 20 mg PO DAILY fluticasone propion-salmeterol [Advair HFA] 230-21 mcg/actuation Hfa Aerosol Inhaler 2 puff INHALATION BID potassium chloride [K-Tab] 20 mEq tablet extended release 40 meq PO DAILY sucralfate 1 gram tablet 1 g PO Q6H pantoprazole 40 mg tablet,delayed release (DR/EC) 40 mg PO BID sucralfate [Carafate] 1 gram Tablet 1 g PO 4X/DAY amlodipine 10 mg Tablet 10 mg PO DAILY dicyclomine 20 mg Tablet 20 mg PO 4X/DAY Eliquis 5 mg Tablet 5 mg PO BID glimepiride 2 mg Tablet 2 mg PO BID ferrous sulfate 325 mg (65 mg iron) Tablet 325 mg PO QODAY tizanidine 4 mg Capsule 4 mg PO Q8H PRN (Reason: Muscle Spasm) Spiriva Respimat 2.5 mcg/actuation Mist 2 puff INHALATION DAILY insulin glargine [Lantus Solostar U-100 Insulin] 100 unit/mL (3 mL) Insulin Pen 40 unit SUBCUT BID lamotrigine 25 mg Tablet 100 mg PO DAILY hydrocodone-acetaminophen 5-325 mg tablet 1 tab PO Q6H PRN PRN (Reason: Pain) 3 Days Qty: 10 0RF metoprolol succinate 50 mg Tablet Extended Release 24 Hr 50 mg PO DAILY melatonin 10 mg Tablet 10 mg PO QHS PRN PRN (Reason: Insomnia) prednisone 20 mg tablet 40 mg PO DAILY Qty: 10 0RF levofloxacin 750 mg tablet 750 mg PO DAILY Qty: 5 0RF furosemide [Lasix] 40 mg tablet 40 mg PO DAILY Qty: 30 1RF nitrofurantoin monohyd/m-cryst [nitrofurantoin monohyd/m-cryst] 100 mg capsule 100 mg PO Q12 Qty: 14 0RF prednisone 50 mg tablet 50 mg PO DAILY Qty: 5 0RF hydrocodone-acetaminophen [hydrocodone-acetaminophen] 5-325 mg tablet 1 tab PO Q4H PRN PRN (Reason: Pain) 2 Days Qty: 10 0RF nystatin 100,000 unit/mL suspension 5 ml mucous membrane TID Qty: 250 1RF Rx Instructions: swish and swallow 5 cc three times per day for 10 days montelukast 10 mg tablet 10 mg PO DAILY Qty: 90 3RF albuterol sulfate 90 mcg/actuation HFA aerosol inhaler 2 puff inhalation Q4H PRN PRN (Reason: SOB &/or Wheezing ) Qty: 8.5 11RF Primary Care Provider: Janel Taylor Referrals: Janel Taylor MD [Primary Care Provider] - 3-5 Days Activity Restrictions/Additional Instructions: You may start the antibiotic when you get it, this is to prevent pneumonia and may not cure your cough. Start the prednisone prescription on the morning of 01/02 since you already received a dose in the ER for the morning of 01/01. Disposition Disposition: Home, Self Care Discharge Date/Time: 01/01/23 03:59
[2023-01-01 01:28] VITALS: PULSE 73; RESP 20
[2023-01-01] MEDS: Ipratropium/Albuterol Sulfate 3 ML AMPUL.NEB INHALATION (01:28)
[2023-01-01] MEDS: Furosemide 20 MG/2 ML VIAL IV (01:33)
[2023-01-01 01:49] LABS: Absolute Lymphocyte Count 1.94 X10^3/uL (0.83-4.51); Absolute Neutrophil Count 12.4 X10^3/uL (2.0-7.7); Basophil# 0.15 X10^3/uL; Basophil% 0.9 % (0-1); Eosinophil# 0.28 X10^3/uL; Eosinophils% 1.7 % (0-5); Hematocrit 28.8 % (37-47); Hemoglobin 9.3 g/dL (12.0-15.0); Lymphocyte # 1.94 X10^3/ul (0.83-4.51); Lymphocyte % 11.8 % (19-41); Mean Corp Hgb Conc 32.3 g/dL (32-36); Mean Corpuscular Volume 77.4 fL (81-99); Mean Platelet Vol. 9.4 fl (6.2-12.0); Monocyte# 1.59 X10^3/uL; Monocyte% 9.7 % (0-10); NRBC Flagged by Analyzer 0 % (0-5); Neutrophil # 12.41 X10^3/uL (2.7-7.7); Neutrophil % 75.4 % (47-70); POSITIVE DIFFERENTIAL YES; Platelet Count 342 K/mm3 (150-450); RBC Distribution Width CV 15.3 % (11.6-14.6); RBC Distribution Width SD 42.5 fl (35.1-43.9); Red Blood Count 3.72 M/mm3 (4.2-5.4); White Blood Count 16.5 K/mm3 (4.4-11.0)
[2023-01-01 01:52] LABS: Differential Indicated SCAN CRITERIA MET
[2023-01-01 02:01] LABS: BNP,B-Type NATRIURETIC PEPTIDE 143.7 pg/mL (0-100)
[2023-01-01 02:03] LABS: Anion Gap 5 (5-15); BUN 11 mg/dL (7-18); BUN/Creat Ratio 12.9 RATIO (10-20); Calcium,Total 9.3 mg/dL (8.5-10.1); Chloride 98 mmol/L (98-107); Creatinine, Serum 0.86 mg/dL (0.55-1.02); EST Glomerular Filtration Rate 73 mL/min (>60); Est Glom Filt Rate - Afr Amer 88 mL/min (>60); Estimated Creatinine Clearance 53.18 ml/min; Glucose 130 mg/dL (74-106); Potassium 4.1 mmol/L (3.5-5.1); Sodium Level 128 mmol/L (136-145); Troponin-I HS 8 pg/mL (3.0-54.0)
[2023-01-01 02:25] LABS: Differential Comment SCANNED
--- NOTE | 2023-01-01 02:25 | RAD_ITS ---
STUDY: X-RAY CHEST REASON FOR EXAM: Female, 57 years old. sob TECHNIQUE: PA and lateral views of the chest. The images are under penetrated. COMPARISON: 09/14/2022. FINDINGS: The lungs are clear and underexpanded. There is no demonstrated pleural abnormality. There is borderline cardiomegaly, partly due to technique. Normal mediastinum and alden. Normal visualized pulmonary arteries. Normal visualized aortic arch and descending thoracic aorta. There are diffuse degenerative changes of the visualized thoracic spine. Normal visualized ribs, clavicles, and shoulders. There is no demonstrated abnormality of the visualized soft tissue structures of the upper abdomen. RAD/Chest PA and Lateral IMPRESSION: No acute cardiopulmonary disease. Electronically Signed: Vickie Pacheco MD at 2:49 EDT ,
[2023-01-01 02:56] VITALS: BP 137/84; PULSE 73; RESP 16; O2SAT 99
[2023-01-01] MEDS: predniSONE 20 MG Tablet PO (03:55)
[2023-01-03 10:22] LABS: Pathologist Review Reviewed
== END 2023-01-01 03:59 | disposition home or self-care (01) ==
PROVIDERS: Emergency Provider Emergency Medicine; PCP Family Medicine; Visit Provider Emergency Medicine
DX: J44.1 Chronic obstructive pulmonary disease with (acute) exacerbation (principal); I11.0 Hypertensive heart disease with heart failure; I50.9 Heart failure, unspecified; E11.9 Type 2 diabetes mellitus without complications; Z79.4 Long term (current) use of insulin; R31.9 Hematuria, unspecified; I25.10 Atherosclerotic heart disease of native coronary artery without angina pectoris; E78.00 Pure hypercholesterolemia, unspecified; Z79.02 Long term (current) use of antithrombotics/antiplatelets; Z86.711 Personal history of pulmonary embolism; I25.2 Old myocardial infarction; G47.30 Sleep apnea, unspecified; K21.9 Gastro-esophageal reflux disease without esophagitis; Z79.899 Other long term (current) drug therapy; Z90.49 Acquired absence of other specified parts of digestive tract; Z95.5 Presence of coronary angioplasty implant and graft; F17.210 Nicotine dependence, cigarettes, uncomplicated
CPT/HCPCS: 71046; 80048; 83880; 84484; 85025; 93005; 94640; 96374; 99285; A4216; J1940

== ENCOUNTER 2023-01-06 09:56 | Outpatient (RCR) | payer MEDICARE, MEDICAID, SELFPAY ==
[2023-01-04 00:52] VITALS: BP 154/59; PULSE 70; RESP 18; TEMP 35.9
[2023-01-06 10:17] VITALS: BP 156/74; PULSE 102; RESP 16; TEMP 35.7
--- NOTE | 2023-01-06 14:36 | PCM.WC.PN ---
History of Present Illness Date of Service: 01/06/23 Chief Complaint: nonhealing ulcer left posteromedial thigh History of Wound: Crystal is a 57-year-old patient with history of diabetic neuropathy, bipolar, schizoaffective disorder, depression, hypertension, cardiac disease, obesity, excessive tobacco use that presents to the wound center today for treatment and evaluation of ulcers of her left medial thigh and perineum that have been present for approx. 3 months. Patient has known problems healing and has been seen at the wound center for previous non-healing wounds of her lower extremities. She continues to smoke and is smoking approximately 2 packs/day. She does not know the cause of the ulcers of her left thigh and perineum but thinks it may have been from an abrasion from sliding to get out of a chair. She has tried treatment with Nystatin powder, Nystatin cream and Calmoseptine but they have not improved. Dr. Taylor performed a punch biopsy on 06/24/22 and this did not show any sign of malignancy and showed changes associated with a chronic wound and no evidence of fungal infection. She has been unable to keep this area covered due to dressings not staying in place. She does have DM and this is controlled, most recent A1C was 6.8% on 11/26/21. 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 This recurred after treatment with antiviral a few weeks prior. The area is very painful per patient and the ulcer of the perineum drains moderate to heavy and the thigh drains light to moderate. She is incontinent of urine. Her ulcer healed in late November and after a week Snider catheter was removed and after 2 weeks her ulcer returned due to incontinence of urine. She was referred to Dr. Edwards and started on medication for her incontinence and Snider catheter was replaced to promote healing by avoiding excess moisture from urinary incontinence. She denies fever, chills, increased erythema, odor. Subjective Subjective Crystal returns today for treatment and re-evaluation of ulcer of left thigh. This was healed several weeks ago but re-opened. She has been applying Silvadene and trying to keep dressing on but it is difficult to apply because it sticks to itself. Snider catheter was replaced and she is tolerating this well. She is scheduled for surgical excison/closure February [address] Toledo. The left buttock area remains closed. There is moderate drainage and pain. Objective Data Objective Data Vital Signs: Vital Signs Temp Pulse Resp BP O2 Del Method 96.2 F L 102 H 16 156/74 H Room Air 01/06/23 10:17 01/06/23 10:17 01/06/23 10:17 01/06/23 10:17 01/06/23 10:17 Oxygen Delivery Method Room Air Physical Exam Const alert, oriented x3 and no apparent distress General Appearance: cooperative and comfortable HEENT normocephalic and head/scalp atraumatic Resp normal respiratory effort Effort and Inspection: able to speak in complete sentences Cardio regular rate and regular rhythm Skin Skin Narrative: right groin with vesicular rash Wounds: wounds noted Wound Narrative: as in clinical panel Psych mental status grossly normal, thought process normal, cooperative and affect normal Debridement Note Debridement Note Wound debrided: left thigh ulcer Laterality: Left Wound Grade/Stage: Stage 2 Type of Debridement: Selective debridement Anesthesia Used: 4% Lidocaine Solution and 5% Lidocaine Gel Depth: Down to and including healthy tissue and in the subcutaneous layer Percentage of wound debrided: 100 Instrument Used: - (gauze) Tissue Removed: Yellow slough, devitalized tissue Severity: Fat Layer Exposed Amount of bleeding with debridement: Mild Bleeding Controlled with: Compression and gauze Patient tolerated procedure: Patient tolerated procedure well Post-Debridement Measurements and Additional Note: Post-Debridement Measurements/Treatment - Nurse 1 - General Ulcer Assessment Start: 01/06/23 10:17 Freq: Status: Active Protocol: WOOD.LOWEXT Activity Type Activity Date Activity User E-sign Co-sign Detail Recorded Client Recorded Date Recorded By Document 01/06/23 10:17 [facility] Desktop 01/06/23 10:22 [facility] 01/06/23 10:17 - Today's Visit Information Type of service Follow-up Visit (Physician/BUSGIRL ) Arrival Mode Ambulatory Transfer Assistance None Patient Identification Verified (Name & Yes ) Patient Requires Transmission-Based No Precautions Vital Signs Temperature (97.8 F-99.1 F) 96.2 F L Temperature Source Temporal Pulse Rate (60-100) 102 H Pulse Location Monitor Respiratory Rate (12-18) 16 Respiratory rate source Observation Oxygen Delivery Method Room Air Blood Pressure (90/60-120/80) 156/74 H Blood Pressure Mean (mm Hg) 101 Source Monitor Position Sitting Blood Pressure Location Right Forearm History Since Last Visit- (Skip if this is Patient's initial visit) Have you changed medications since your No last visit? Any new allergies or adverse reactions No Had a fall/change in ADL's that may No increase risk of falls Signs or symptoms of abuse and/or No neglect since last visit Have you been in the hospital since your No last visit? Has dressing in place as prescribed Yes Has compression in place as prescribed N/A Has offloadiing in place as prescribed N/A Experienced any changes in pain level or No management Left Footwear Removable Cast Walker/Walking Boot Right Footwear Regular Shoe Pain Scale: 0-10 Numeric Is Patient Pain Free? Yes WOOD - Nurse 1 - General Ulcer Measurement Start: 01/06/23 10:17 Freq: Status: Active Protocol: Activity Type Activity Date Activity User E-sign Co-sign Detail Recorded Client Recorded Date Recorded By Document 01/06/23 10:17 [facility] Desktop 01/06/23 10:22 [facility] 01/06/23 10:17 Wound Center Nurse 1 #11- Left MED POST THIGH -Combined with other wound No -Current Size (cm) - Length 1.7 -Current Size (cm) - Width 1.1 -Current Size (cm) - Depth 0.4 -Total Square Cm 1.87 -Photo Taken No -Epithelialization None Present -Tunneling No -Undermining/Tunneling No -Circular Undermining No -Exudate Amt Medium -Exudate Type Serosanguineous -Wound Margin Distinct, Outline Attached -Granulation Amt Medium (34-66%) -Granulation Quality Red -Slough/Fibrin Yes -Necrosis Amt Medium (34-66%) -Necrotic Tissue Type Adherent Slough -Texture (Adriane-wound Skin Appearance) Assessed, Scarring -Moisture (Adriane-wound Skin Appearance) Assessed -Color (Adriane-wound Skin Appearance) Assessed -Temperature (Adriane-wound Skin No Abnormality Appearance) (Pt Warm) -Tenderness on Palpation (Adriane-wound No Skin Appearance) -Ulcer Cleansing Soap and Water -Foul Odor after Cleansing No -Anesthetic Used 5% Lidocaine Gel WOOD - Nurse 2 - General Ulcer CM Notes Start: 01/06/23 10:17 Freq: Status: Active Protocol: Activity Type Activity Date Activity User E-sign Co-sign Detail Recorded Client Recorded Date Recorded By Document 01/06/23 10:56 Desktop 01/06/23 11:01 01/06/23 10:56 Wound Center Nurse 2 -Time 10:56 -Correct Patient Yes -Correct Side, Site, Position Yes -Correct Procedure Yes -Procedure Performed Yes -Type of Procedure Debridement -Clinical Debridement Epidermis / Dermis -Tissue Removed Epidermis -Post Debridement (cm) - Length 1.4 -Post Debridement (cm) - Width 1.4 -Post Debridement (cm) - Depth 0.2 -Total Square (Post) (cm) 1.96 -Area of Debridement (cm) - Length 1.4 -Tunneling No -Undermining/Tunneling No -Circular Undermining No -Wound/Ulcer Outcome Not Healed -Ulcer Cleansing Rinsed/ Irrigated with Saline -Foul Odor after Cleansing No -Bioengineered Tissue No -Bleeding Controlled with Pressure -Treatment Response Procedure Tolerated Well -Debridement - Open, 1st 20sq cm Yes Pain Scale: 0-10 Numeric Is Patient Pain Free? Yes - Nurse 3 - General Ulcer D/C NN Start: 01/06/23 10:17 Freq: Status: Active Protocol: Activity Type Activity Date Activity User E-sign Co-sign Detail Recorded Client Recorded Date Recorded By Document 01/06/23 11:11 Desktop 01/06/23 11:12 01/06/23 11:11 Wound Care Center Nurse 3 #11- Left MED POST THIGH -Other Dressing pt states will dress wound at home today silvadene and mepilex Treatment Response Procedure Tolerated Well Pain Scale: 0-10 Numeric Is Patient Pain Free? Yes - Visit Discharge Discharge Condition Stable Ambulatory Status Ambulatory, Walker Transportation Private Auto Medication Reconcilliation completed & No provided to patient/care provider Clinical Summary of Care Provided Yes Assessment/Plan Assessment/Plan (1) Chronic ulcer of left thigh with fat layer exposed: CODE(S): L97.122 - Non-pressure chronic ulcer of left thigh with fat layer exposed (2) Decubitus ulcer of left thigh, stage 3: CODE(S): L89.223 - Pressure ulcer of left hip, stage 3 (3) Morbid obesity due to excess calories: CODE(S): E66.01 - Morbid (severe) obesity due to excess calories (4) Overactive bladder: CODE(S): N32.81 - Overactive bladder (5) Urinary incontinence without sensory awareness: CODE(S): N39.42 - Incontinence without sensory awareness PLAN: Plan Crystal's left thigh ulcer was evaluated and debrided today. At home wound-care instructions: Will continue to apply silvadene daily to dress left thigh ulcer and cover with silicone dressing for moderate drainage. Keep dressing clean and dry. Continue Snider catheter again as this really helped to heal her ulcer. Will refer for Home Health for assistance with dressings/Snider care. Off-loading: The patient was instructed to avoid pressure and friction on the affected areas. Reposition every 2 hours at minimum. Avoid prolonged standing and/or dangling of legs. When seated, feet should be elevated at chest level. Frequent ambulation is encouraged. Diet: Patient encouraged to increase protein intake while taking caution to avoid high carbohydrate and/or sugar intake. Labs/cultures/imaging: Follow-up: She will follow up in 2 weeks. Call sooner if increased erythema, drainage or pain. Note: [employer] speech recognition glass driller software was used to create portions of this document. Sound-alike and misspelled words, as well as other glass driller errors may be contained in the documentation.
== END 2023-02-02 23:59 | disposition home or self-care (01) ==
LOC: WC 09:56
PROVIDERS: PCP Family Medicine; Referring Provider Family Medicine; Visit Provider Family Medicine
DX: E11.622 Type 2 diabetes mellitus with other skin ulcer (principal); L89.223 Pressure ulcer of left hip, stage 3; F25.9 Schizoaffective disorder, unspecified; L97.122 Non-pressure chronic ulcer of left thigh with fat layer exposed; F31.9 Bipolar disorder, unspecified; E11.40 Type 2 diabetes mellitus with diabetic neuropathy, unspecified; B00.9 Herpesviral infection, unspecified; N39.42 Incontinence without sensory awareness; F17.210 Nicotine dependence, cigarettes, uncomplicated; E66.9 Obesity, unspecified; Z79.01 Long term (current) use of anticoagulants; Z79.02 Long term (current) use of antithrombotics/antiplatelets; Z79.84 Long term (current) use of oral hypoglycemic drugs; Z79.899 Other long term (current) drug therapy
CPT/HCPCS: 97597

== ENCOUNTER 2023-02-12 12:38 | Emergency (ER) | payer MEDICARE, MEDICAID, SELFPAY ==
[2023-02-12 12:38] VITALS: BP 172/66; PULSE 82; RESP 16; TEMP 35.7; O2SAT 100
--- NOTE | 2023-02-12 12:55 | RAD_ITS ---
HISTORY: Pain. TECHNIQUE: XR Spine Lumbar 2 or 3 Views. COMPARISON: 04/01/2022. FINDINGS: VERTEBRAE: Chronic mild L1 compression fracture. Vertebral body heights maintained. Degenerative changes of the posterior elements. Right hip arthroplasty again seen.. ALIGNMENT: No significant anterior or posterior subluxation. Mild dextroscoliosis. INTERVERTEBRAL DISCS: Degenerative endplate changes with vertebral disc space narrowing of L3-4 and L4-5. SOFT TISSUES: Surgical clips and suture in the left upper quadrant. Oval 2.2 cm calcification in the left lower quadrant. RAD/Lumbar Spine 2 or 3 Views IMPRESSION: No acute fracture or dislocation identified in the lumbar spine. Chronic L1 compression fracture. Multilevel degenerative change. Mild scoliosis. Electronically Signed: Ericka Jaquez MD at 13:50 EST ,
--- NOTE | 2023-02-12 12:57 | ED.VIS.BACK ---
HPI History of Present Illness Chief Complaint: Complaint Narrative Narrative: 57-year-old female past medical history of chronic indwelling Snider catheter in order to divert urine away from her private areas. She presents with low back pain that radiates into her left buttocks. Sometimes it is to the right as well. She denies any fevers or chills. She denies any injury or fall. She states that she has been having pain over the last few days. Her Snider catheter was changed approximately 2 weeks ago. She has had it there for months for the aforementioned reason. She is concerned she may have a urinary tract infection but has pain every time she transfers or moves in her mid low back. It does not radiate all the way down her leg. She denies other red flag signs for cauda equina. [facility] Medical History Anemia Asthma Atherosclerotic heart disease of [place] coronary artery without angina pectoris Bacterial infection due to Proteus mirabilis Bacterial UTI Benign essential hypertension BiPAP (biphasic positive airway pressure) dependence Bleeding tendency Blood loss anemia CAD (coronary artery disease) Cardiac dysrhythmia Cardiology follow-up encounter Chest pain Chest pain at rest Chronic cough Chronic narcotic use Chronic ulcer of left thigh with fat layer exposed Closed fracture of proximal end of fibula COPD (chronic obstructive pulmonary disease) CPAP (continuous positive airway pressure) dependence Current use of insulin Delayed surgical wound healing Diabetes Dislocation of hip, right, closed Emphysema of lung Gastroesophageal reflux disease High cholesterol Hip osteoarthritis History of Clostridium difficile infection History of echocardiogram History of GI bleed History of hiatal hernia History of left heart catheterization (LHC) (~07/05/21) History of pulmonary embolism History of revision of total replacement of right hip joint History of steroid therapy History of stress test History of ulceration Hx methicillin resistant staph Hypertension Irregular heart beat Irritable bowel Leg cramps Low iron Morbid obesity Myocardial infarct Obesity On home oxygen therapy RACHEL (obstructive sleep apnea) Pancreatitis Peptic ulcer Preoperative cardiovascular examination Presence of stent in coronary artery (~02/07/11) Pressure sore of left ischium, stage 3 Pulmonary hypertension Rheumatoid arthritis Schizoaffective disorder Schizophrenia Sleep apnea Smoker Spinal stenosis of lumbar region at multiple levels Stage 2 moderate COPD by GOLD classification Suspected COVID-19 virus infection Takotsubo cardiomyopathy Thyroid nodule Tobacco abuse Type 2 diabetes mellitus Ulcer Urinary incontinence without sensory awareness Vitamin D deficiency Walker as ambulation aid Wears glasses Wears partial dentures Home Medications atorvastatin 80 mg tablet 80 mg PO QHS cholesterol 08/22/15 [History Last Taken 08/03/21] pregabalin 75 mg capsule 75 mg PO TID PAIN 03/08/18 [History Last Taken 08/03/21] risperidone 4 mg tablet 4 mg PO QHS sleep 03/08/18 [History Last Taken 08/04/21] trazodone 100 mg tablet 200 mg PO QHS PRN Insomnia 03/08/18 [History Last Taken 08/04/21] buspirone 30 mg tablet 30 mg PO BID anxiety 06/27/19 [History Last Taken 08/03/21] clopidogrel 75 mg tablet 75 mg PO DAILY blood thinner 07/31/20 [History Last Taken 08/03/21] escitalopram oxalate 20 mg tablet 20 mg PO DAILY mental health 11/14/20 [History Last Taken 08/03/21] fluticasone propionate 230 mcg-salmeterol 21 mcg/actuation HFA inhaler (Advair HFA) 2 puff inhalation BID SOB 11/14/20 [History Last Taken 08/05/21] promethazine 25 mg tablet 25 mg PO BID PRN PRN Nausea 11/14/20 [History Last Taken 08/04/21] potassium chloride 20 mEq tablet,extended release (K-Tab) 40 meq PO DAILY potassium replacement 01/13/21 [History Last Taken 08/05/21] pantoprazole 40 mg tablet,delayed release 40 mg PO BID gerd 08/05/21 [History Last Taken 08/03/21] fluticasone propionate 50 mcg/actuation nasal spray,suspension 1 spray intranasal BID allergies #16 grams 06/29/22 [Rx Last Taken Unknown] apixaban 5 mg tablet (Eliquis) 5 mg PO BID blood thinner 07/22/22 [History Last Taken Unknown] dicyclomine 20 mg tablet 20 mg PO 4X/DAY Check with primary doctor 07/22/22 [History Last Taken Unknown] ferrous sulfate 325 mg (65 mg iron) tablet 325 mg PO QODAY anemia 07/22/22 [History Last Taken Unknown] glimepiride 2 mg tablet 2 mg PO BID diabetes 07/22/22 [History Last Taken Unknown] lamotrigine 25 mg tablet 150 mg PO DAILY Check with primary doctor 07/22/22 [History Last Taken Unknown] sucralfate 1 gram tablet (Carafate) 1 g PO 4X/DAY stomach 07/22/22 [History Last Taken Unknown] tiotropium bromide 2.5 mcg/actuation mist for inhalation (Spiriva Respimat) 2 puff inhalation DAILY copd 07/22/22 [History Last Taken Unknown] tizanidine 4 mg capsule 4 mg PO Q8H PRN Muscle Spasm 07/22/22 [History Last Taken Unknown] melatonin 10 mg tablet 10 mg PO QHS PRN PRN Insomnia 08/17/22 [History Last Taken Unknown] metoprolol succinate 50 mg tablet,extended release 24 hr 50 mg PO DAILY heart 08/17/22 [History Last Taken Unknown] montelukast 10 mg tablet 10 mg PO DAILY pain #90 tabs 08/31/22 [Rx Last Taken Unknown] albuterol sulfate 90 mcg/actuation aerosol inhaler 2 puff inhalation Q4H PRN PRN SOB &/or Wheezing #8.5 grams 09/09/22 [Rx Last Taken Unknown] albuterol sulfate 2.5 mg/3 mL (0.083 %) solution for nebulization 2.5 mg (3 mL) inhalation Q4H PRN Sob &/Or Wheezing #180 mL 01/02/23 [Rx Last Taken Unknown] furosemide 40 mg tablet (Lasix) 20 mg PO DAILY 01/17/23 [History Last Taken Unknown] Allergy/AdvReac Type Severity Reaction Status Date / Time tramadol [From Ultram] Allergy Severe Blisters, Verified 01/17/23 12:48 itching amoxicillin Allergy Itching Verified 01/17/23 12:48 erythromycin base Allergy Unknown Verified 01/17/23 12:48 methadone Allergy Itching Verified 01/17/23 12:48 metolazone Allergy Unknown Verified 01/17/23 12:48 Penicillins Allergy Hives Verified 01/17/23 12:48 Sulfa (Sulfonamide Allergy Hives Verified 01/17/23 12:48 Antibiotics) clarithromycin [From Biaxin] AdvReac Nausea Verified 01/17/23 12:48 ibuprofen AdvReac 3 BLEEDING Verified 01/17/23 12:48 ULCERS morphine AdvReac HEADACHE Verified 01/17/23 12:48 oxycodone [From Percocet] AdvReac Itching Verified 01/17/23 12:48 Family History Mother Heart disease Cancer uterine Father Hypertension Arthritis Hyperlipemia Grandmother Breast cancer Heart disease Grandfather Heart disease Sister Hypertension Surgical History History of appendectomy History of carpal tunnel surgery of left wrist History of cholecystectomy History of gastric bypass History of gastric bypass History of right ankle surgery history of right hip surgery History of tonsillectomy Presence of coronary angioplasty implant and graft (~02/07/11) Social History household members: none Smoking Status: Current every day smoker tobacco type: cigarettes alcohol intake: never substance use type: does not use caffeine: Yes (occasional) what type of physical activity do you participate in: none ROS ROS ED ROS Narrative Constitutional: No fever, no chills. HEENT: No sore throat. No neck pain. No loss of vision. No rhinorrhea. Cardiovascular: No chest pain. No palpitations. No pedal edema. Respiratory: No cough, no shortness of breath. Abdominal: No abdominal pain. No nausea. No vomiting. Genitourinary: No dysuria. No hematuria. Musculoskeletal: No myalgias. No arthralgias. Neurologic: No headaches. No dizziness. No lightheadedness. Low back pain radiating to buttocks. Skin: No rash. No change in color. Psychiatric: No depression. No anxiety. EXAM Physical Exam Narrative Exam Narrative: Afebrile. Vital signs noted. HEENT: Normocephalic. Atraumatic. PERRL, EOMI. Neck soft and supple. No point tenderness or step off. Cardiovascular: Regular rate and rhythm. No murmurs, rubs, or gallops appreciated. Respiratory: No tachypnea. Lungs clear to auscultation bilaterally. Gastrointestinal: Abdomen soft, nontender, with normoactive bowel sounds. No rebound or guarding. Neurological: Awake. Alert. Nonfocal, nonlateralizing. Skin: No rash. Normal color. No pallor. Musculoskeletal: No pedal edema. Full range of motion extremities. Positive tenderness to palpation middle/midline of her lumbar spine area. No step-off. Minimal tenderness to palpation left sciatic notch. Straight leg raising negative bilaterally in seated position. Const Vital Signs: 02/12/23 12:38 Temperature 96.3 F L Temperature Source Temporal Pulse Rate 82 Respiratory Rate 16 Blood Pressure 172/66 H Blood Pressure Mean 101 Pulse Ox 100 Oxygen Delivery Method Room Air MDM MDM MDM Narrative Medical decision making narrative: I reviewed the patient's prior records. She has had intermittent hematuria. Without fever or chills I have low suspicion for cauda equina which is in the differential as well. She does not have saddle anesthesias. Rather, I think in review of her chart, she has had spinal stenosis in the past. I do feel x-rays are indicated to help rule out an acute compression fracture which is also in the differential. I do not feel she needs an emergent MRI. She was given 1 Perdido tablet for analgesia here. 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 I do feel that further narcotic pain medication should come from either her primary care provider or pain management. I will check a urinalysis, but as stated previously she may be colonized with bacteria. I reviewed her laboratory work and review of her urinalysis shows 0-5 WBCs. While they are positive for nitrites, there is 1+ bacteria. I do feel that this is more of a colonization as she is not febrile. I do not feel antibiotics are indicated. I interpreted her x-rays which shows degenerative changes and multilevels. I reviewed the radiology report which confirms my independent interpretation and also comments on, and L1 vertebral compression fracture. She was given 1 Perdido tablet here as stated in the past. I do not feel that a prescription from the emergency department is appropriate and she was told that narcotic pain medications should come from her primary care physician or pain management. She then stated that she had spoken with her primary care provider and was told that it needs to come from her specialist. Hence, I do not feel that she requires narcotic pain medication from the emergency department and that she should follow-up with her specialist for her chronic back pain. Disposition is discharged in stable condition. History & Record Review Discussion w/independent historian: Patient Additional record(s) reviewed:: Prior ED visit and Prior labs Lab Data Attestation: I reviewed the patient's lab results. Labs: Laboratory Results - last 24 hr 02/12/23 13:12 Urine Color Yellow Urine Clarity Sl. Cloudy Urine pH 5.0 Ur Specific Rickman 1.010 Urine Protein 30 H Urine Glucose (UA) Normal Urine Ketones Negative Urine Occult Blood 150 H Urine Nitrite Positive H Urine Bilirubin Negative Urine Urobilinogen Normal Ur Leukocyte Esterase 500 H Urine RBC 5-10 SEEN Urine WBC 0-5 SEEN Ur Squamous Epith Cells 0-5 SEEN Urine Bacteria 1+ Urine Mucus 0 SEEN Radiography Diagnostic Testing: Clinical Impression(s) from Imaging Studies Lumbar Spine X-Ray 02/12/23 12:55 IMPRESSION: No acute fracture or dislocation identified in the lumbar spine. Chronic L1 compression fracture. Multilevel degenerative change. Mild scoliosis. Electronically Signed: Ericka Jaquez MD at 13:50 EST , Discharge Plan Triage Chief Complaint: Complaint Other Complaint: Back ED Provider: Gurdeep Fine Dx/Rx/DC Orders Clinical Impression: Chronic indwelling Snider catheter, Spinal stenosis of lumbar region at multiple levels, Back pain Instructions: ED Back Pain (Acute or Chronic) Prescriptions: No Action fluticasone propionate 50 mcg/actuation spray,suspension 1 spray INTRANASAL BID Qty: 16 11RF albuterol sulfate 2.5 mg /3 mL (0.083 %) solution for nebulization 2.5 mg inhalation Q4H PRN (Reason: Sob &/Or Wheezing) Qty: 180 3RF atorvastatin 80 MG tablet 80 mg PO QHS Patient Comments: cholesterol risperidone 4 mg tablet 4 mg PO QHS Patient Comments: Take 1 tablet by mouth at bedtime trazodone 100 MG tablet 200 mg PO QHS PRN (Reason: Insomnia) pregabalin 75 MG capsule 75 mg PO TID buspirone 30 mg tablet 30 mg PO BID clopidogrel 75 mg tablet 75 mg PO DAILY promethazine 25 mg Tablet 25 mg PO BID PRN PRN (Reason: Nausea) escitalopram oxalate 20 mg Tablet 20 mg PO DAILY fluticasone propion-salmeterol [Advair HFA] 230-21 mcg/actuation Hfa Aerosol Inhaler 2 puff INHALATION BID potassium chloride [K-Tab] 20 mEq tablet extended release 40 meq PO DAILY pantoprazole 40 mg tablet,delayed release (DR/EC) 40 mg PO BID sucralfate [Carafate] 1 gram Tablet 1 g PO 4X/DAY dicyclomine 20 mg Tablet 20 mg PO 4X/DAY Eliquis 5 mg Tablet 5 mg PO BID glimepiride 2 mg Tablet 2 mg PO BID ferrous sulfate 325 mg (65 mg iron) Tablet 325 mg PO QODAY tizanidine 4 mg Capsule 4 mg PO Q8H PRN (Reason: Muscle Spasm) Spiriva Respimat 2.5 mcg/actuation Mist 2 puff INHALATION DAILY lamotrigine 25 mg Tablet 150 mg PO DAILY metoprolol succinate 50 mg Tablet Extended Release 24 Hr 50 mg PO DAILY melatonin 10 mg Tablet 10 mg PO QHS PRN PRN (Reason: Insomnia) furosemide [Lasix] 40 mg tablet 20 mg PO DAILY montelukast 10 mg tablet 10 mg PO DAILY Qty: 90 3RF albuterol sulfate 90 mcg/actuation HFA aerosol inhaler 2 puff inhalation Q4H PRN PRN (Reason: SOB &/or Wheezing ) Qty: 8.5 11RF Primary Care Provider: Janel Taylor Referrals: Janel Taylor MD [Primary Care Provider] - As soon as possible Activity Restrictions/Additional Instructions: Follow-up with your primary care provider. You may need to be enrolled in pain management. Also follow-up with your back specialist. Disposition Disposition: Home, Self Care
[2023-02-12] MEDS: HYDROcodone Bitartrate/Apap 5/325 Tablet PO (13:01)
[2023-02-12 13:02] VITALS: BMI 37.0
[2023-02-12 13:17] LABS: Mucous, Urine 0 SEEN /hpf (<or=2+)
[2023-02-12 13:19] LABS: Color, Urine Yellow (Yellow); Glucose, Dipstick Normal (Normal); Ketone-Dipstick Negative (Negative); Leukocyte Esterase-Dipstick 500 /ul (Negative); Nitrite-Dipstick Positive (Negative); Occult Blood-Urine 150 /ul (Negative); Protein-Dipstick 30 mg/dl (Negative); Urine Bilirubin Dipstick Negative (Negative); Urine Clarity Sl. Cloudy (Clear); Urine Urobilinogen Normal (Normal)
[2023-02-12 13:25] LABS: Bacteria 1+ /hpf (None Seen); Red Blood Cells-Urine 5-10 SEEN /hpf (0-5); Squamous Epithelial Cells - UA 0-5 SEEN /hpf (5-10); White Blood Cells 0-5 SEEN /hpf (0-5)
[2023-02-12 14:17] VITALS: RESP 18
== END 2023-02-12 14:19 | disposition home or self-care (01) ==
PROVIDERS: Emergency Provider Emergency Medicine; PCP Family Medicine; Visit Provider Emergency Medicine
DX: M48.061 Spinal stenosis, lumbar region without neurogenic claudication (principal); J44.9 Chronic obstructive pulmonary disease, unspecified; E11.9 Type 2 diabetes mellitus without complications; Z79.4 Long term (current) use of insulin; I25.10 Atherosclerotic heart disease of native coronary artery without angina pectoris; I10 Essential (primary) hypertension; E78.00 Pure hypercholesterolemia, unspecified; M54.9 Dorsalgia, unspecified; Z96.641 Presence of right artificial hip joint; Z99.81 Dependence on supplemental oxygen; I25.2 Old myocardial infarction; Z79.899 Other long term (current) drug therapy; G47.30 Sleep apnea, unspecified; Z79.51 Long term (current) use of inhaled steroids; K21.9 Gastro-esophageal reflux disease without esophagitis; Z79.01 Long term (current) use of anticoagulants; Z79.84 Long term (current) use of oral hypoglycemic drugs; Z90.49 Acquired absence of other specified parts of digestive tract; Z95.5 Presence of coronary angioplasty implant and graft; F17.210 Nicotine dependence, cigarettes, uncomplicated; Z96.0 Presence of urogenital implants
CPT/HCPCS: 72100; 81001; 99283